=== PATIENT | male | born 1955 | race Caucasian/White ===

== ENCOUNTER 2022-07-26 12:57 | Outpatient (OUT) | payer MEDICARE, SELFPAY | END 2022-07-26 12:58 | LOC: WC 12:57 | PROVIDERS: PCP Surgery; Visit Provider Surgery | DX: L97.411 Non-pressure chronic ulcer of right heel and midfoot limited to breakdown of skin (principal); L89.312 Pressure ulcer of right buttock, stage 2 | CPT/HCPCS: 99212; G0463 ==

== ENCOUNTER 2022-08-09 11:23 | Outpatient (OUT) | payer MEDICARE, SELFPAY | END 2022-08-09 11:24 | disposition home or self-care (01) | LOC: WC 11:23 | PROVIDERS: PCP Physician Assistant; Visit Provider Physician Assistant | DX: E11.621 Type 2 diabetes mellitus with foot ulcer (principal); L97.511 Non-pressure chronic ulcer of other part of right foot limited to breakdown of skin; L89.622 Pressure ulcer of left heel, stage 2; L89.612 Pressure ulcer of right heel, stage 2; I25.10 Atherosclerotic heart disease of native coronary artery without angina pectoris; L03.90 Cellulitis, unspecified; E11.40 Type 2 diabetes mellitus with diabetic neuropathy, unspecified; N18.6 End stage renal disease; E78.5 Hyperlipidemia, unspecified; I10 Essential (primary) hypertension; I25.5 Ischemic cardiomyopathy; E66.9 Obesity, unspecified; I83.90 Asymptomatic varicose veins of unspecified lower extremity | CPT/HCPCS: 11055 ==

== ENCOUNTER 2022-08-30 11:05 | Outpatient (OUT) | payer MEDICARE, SELFPAY | END 2022-08-30 11:06 | disposition home or self-care (01) | LOC: WC 11:05 | PROVIDERS: PCP Physician Assistant; Visit Provider Physician Assistant | DX: E11.621 Type 2 diabetes mellitus with foot ulcer (principal); L97.511 Non-pressure chronic ulcer of other part of right foot limited to breakdown of skin; L03.90 Cellulitis, unspecified; E11.40 Type 2 diabetes mellitus with diabetic neuropathy, unspecified; L89.312 Pressure ulcer of right buttock, stage 2; L89.622 Pressure ulcer of left heel, stage 2; L89.612 Pressure ulcer of right heel, stage 2 | CPT/HCPCS: 11055 ==

== ENCOUNTER 2022-09-27 13:03 | Outpatient (OUT) | payer MEDICARE, SELFPAY | END 2022-09-27 13:04 | disposition home or self-care (01) | LOC: WC 13:03 | PROVIDERS: PCP Physician Assistant; Visit Provider Physician Assistant | DX: L89.622 Pressure ulcer of left heel, stage 2 (principal); L89.612 Pressure ulcer of right heel, stage 2 | CPT/HCPCS: A6213; G0463 ==

== ENCOUNTER 2022-10-18 12:55 | Outpatient (OUT) | payer MEDICARE, SELFPAY | END 2022-10-18 12:56 | disposition home or self-care (01) | LOC: WC 12:55 | PROVIDERS: PCP Physician Assistant; Visit Provider Physician Assistant | DX: E11.621 Type 2 diabetes mellitus with foot ulcer (principal); L97.511 Non-pressure chronic ulcer of other part of right foot limited to breakdown of skin; L89.622 Pressure ulcer of left heel, stage 2; L89.612 Pressure ulcer of right heel, stage 2; S90.422A Blister (nonthermal), left great toe, initial encounter | CPT/HCPCS: 11056; G0463 ==

== ENCOUNTER 2022-11-05 16:00 | Outpatient (OUT) | payer MEDICARE, SELFPAY ==
[2022-11-05 16:21] LABS: Basophils Absolute Auto 0.1 10^3/uL (0.0-0.1); Basophils Percent Auto 0.8 % (0.2-2.0); Eosinophils Absolute Auto 0.2 10^3/uL (0.0-0.7); Eosinophils Percent Auto 1.9 % (0.9-7.0); Hematocrit 42.3 % (42.0-54.0); Hemoglobin 13.7 g/dL (14.0-18.0); Immature Granulocytes Pct Auto 1.2 % (0.0-0.5); Lymphocytes Absolute Auto 1.4 10^3/uL (1.2-3.8); Lymphocytes Percent Auto 15.7 % (20.5-60.0); Mean Corpuscular HGB Conc 32.4 g/dL (29.9-35.2); Mean Corpuscular Hemoglobin 29.5 pg (25.9-34.0); Mean Corpuscular Volume 91.2 fL (80.0-94.0); Mean Platelet Volume 10.6 fL (9.5-13.5); Monocytes Percent Auto 11.9 % (1.7-12.0); Neutrophils Absolute Auto 5.9 10^3/uL (1.4-6.5); Neutrophils Percent Auto 68.5 % (43.0-75.0); Platelet Count 156 10^3/uL (150-450); Red Blood Count 4.64 10^6/uL (4.70-6.10); Red Cell Distribution Width 14.8 % (11.0-15.0); White Blood Count 8.6 10^3/uL (4.0-11.0)
[2022-11-05 16:51] LABS: Estimated Average Glucose 220 mg/dL; Glycohemoglobin A1C 9.3 % (4.5-6.2)
[2022-11-05 17:20] LABS: Alanine Aminotransferase 30 U/L (16-63); Albumin Globulin Ratio 0.9; Albumin Level 3.5 g/dL (3.4-5.0); Alkaline Phosphatase 76 U/L (46-116); Anion Gap 16.5; Aspartate Amino Transferase 26 U/L (15-37); Bilirubin Total 0.6 mg/dL (0.2-1.0); Calcium 9.4 mg/dL (8.5-10.1); Chloride 95 mmol/L (98-107); Chol HDL Ratio 1.8; Cholesterol 95 mg/dL (<=200); Estimated GFR (African America 10 (>=60); Estimated GFR (Non-African Ame 8 (>=60); Globulin 4.1 g/dL; Glucose 164 mg/dL (74-106); HDL Cholesterol 52 mg/dL (40-60); LDL Cholesterol Calculated 31.6 mg/dL; Potassium 3.5 mmol/L (3.5-5.1); Sodium 133 mmol/L (136-145); Thyroid Stimulating Hormone 1.553 uIU/mL (0.358-3.740); Total Protein 7.6 g/dL (6.4-8.2); Triglycerides 57 mg/dL (<=150); VLDL CHOLESTEROL 11.4 mg/dL
[2022-11-05 17:21] LABS: Prostate Specific Antigen Scrn 3.88 ng/mL (<=4.00)
== END 2022-11-05 16:01 | disposition home or self-care (01) ==
LOC: LAB 16:01
PROVIDERS: PCP Family Medicine; Visit Provider Family Medicine
DX: I25.5 Ischemic cardiomyopathy (principal); N18.6 End stage renal disease; E78.5 Hyperlipidemia, unspecified; E11.621 Type 2 diabetes mellitus with foot ulcer; R73.09 Other abnormal glucose; Z12.5 Encounter for screening for malignant neoplasm of prostate
CPT/HCPCS: 36415; 80053; 80061; 83036; 84436; 84443; 84481; 85025; G0103

== ENCOUNTER 2022-11-08 15:40 | Outpatient (OUT) | payer MEDICARE, SELFPAY | END 2022-11-08 15:41 | disposition home or self-care (01) | LOC: WC 15:40 | PROVIDERS: PCP Family Medicine; Visit Provider Physician Assistant | DX: L84 Corns and callosities (principal); E11.40 Type 2 diabetes mellitus with diabetic neuropathy, unspecified | CPT/HCPCS: 11056 ==

== ENCOUNTER 2022-12-11 14:17 | Outpatient (OUT) | payer MEDICARE, SELFPAY | END 2022-12-11 14:18 | disposition home or self-care (01) | LOC: WC 14:17 | PROVIDERS: PCP Family Medicine; Visit Provider Podiatrist Foot & Ankle Surgery | DX: L84 Corns and callosities (principal); E11.40 Type 2 diabetes mellitus with diabetic neuropathy, unspecified; L89.612 Pressure ulcer of right heel, stage 2; E11.621 Type 2 diabetes mellitus with foot ulcer; L97.811 Non-pressure chronic ulcer of other part of right lower leg limited to breakdown of skin | CPT/HCPCS: A6213; G0463 ==

== ENCOUNTER 2023-02-05 12:20 | Outpatient (OUT) | payer MEDICARE, SELFPAY ==
--- OUTSIDE RECORDS SUMMARY | 2023-02-01 16:59 | XMS_ITS | CCD ---
Author Name Unknown Address [address] [facility] [address] [place] [address] Organization [facility] Care Team Providers Care Director Outcomes Name Role Phone NAV ALEJO Referring Unavailable NAV ALEJO Primary Care Unavailable Laly Amaro Attending Unavailable Laly Amaro Admitting Unavailable Nav Alejo Unavailable Unavailable Unavailable Nav Alejo Primary Care Physician PROVIDER, UNKNOWN Attending Unavailable PROVIDER, UNKNOWN Admitting Unavailable MELO Clifton, DR MCDANIEL Primary Care Unavailable FRANKYANDERLAUREN Attending Unavailable HIGHLANDER, PETER D Admitting Unavailable HIGHLANDER, PETER D Admitting Unavailable HIGHLANDER, PETER Sharon Attending Unavailable HOY ., DR MCDANIEL Primary Care Unavailable LEANNE HUIZAR Attending Unavailable LEANNE HUIZAR Admitting Unavailable HOY ., DR MCDANIEL Primary Care Unavailable HIGHLANDER, PETER D Admitting Unavailable HIGHLANDER, PETER D Attending Unavailable HOY ., DR MCDANIEL Primary Care Unavailable HOY ., DR MCDANIEL Primary Care Unavailable FRANKYANDER, LAUREN Herrera Admitting Unavailable HIGHLANDER, LAUREN Herrera Attending Unavailable HOY ., DR MCDANIEL Primary Care Unavailable FRANKYANDERLAUREN Admitting Unavailable HIGHLANDERLAUREN Attending Unavailable NATHEN LUCIA Consulting Unavailable LEANNE HUIZAR Attending Unavailable HOY ., DR MCDANIEL Primary Care Unavailable LEANNE HUIZAR Admitting Unavailable LEANNE HUIZAR Consulting Unavailable HOY ., DR MCDANIEL Admitting Unavailable HOY ., DR MCDANIEL Attending Unavailable HOY ., DR MCDANIEL Consulting Unavailable HOY ., DR MCDANIEL Primary Care Unavailable HOY ., DR MCDANIEL Admitting Unavailable HOY ., DR MCDANIEL Attending Unavailable HOY ., DR MCDANIEL Consulting Unavailable HOY ., DR MCDANIEL Primary Care Unavailable LEANNE HUIZAR Attending Unavailable LEANNE HUIZAR Consulting Unavailable LEANNE HUIZAR Admitting Unavailable MELO ., DR MCDANIEL Primary Care Unavailable NAKUL ., NYLA CARPIO Consulting Unavailabl e PAY ., DR VARGAS Attending Unavailable MELO ., DR MCDANIEL Primary Care Unavailable PAY ., DR VARGAS Admitting Unavailable POLICARO, CHRISTIANNE Consulting Unavailable Shereen Connolly L Unavailable Unavailable Dorian, Mohamed F. Attending Unavailable Dorian, Mohamed F. Admitting Unavailable NONE, XXXX Referring Unavailable Dorian, Mohamed F. Attending Unavailable Dorian, Mohamed F. Admitting Unavailable NONE, XXXX Referring Unavailable Dorian, Mohamed F. Admitting Unavailable Dorian, Mohamed F. Referring Unavailable Fournier, Jatin Consulting Unavailable Pedro ARAUZ Attending Unavailable Fournier, Jatin Consulting Unavailable Fournier, Jatin Consulting Unavailable Fournier, Jatin Consulting Unavailable Fournier, Jatin Consulting Unavailable Fournier, Jatin Consulting Unavailable Fournier, Jatin Consulting Unavailable Fournier, Jatin Consulting Unavailable Fournier, Ajtin Consulting Unavailable Dorian, Mohamed F. Attending Unavailable Dorian, Mohamed F. Admitting Unavailable Dorian, Mohamed F. Referring Unavailable Dorian, Mohamed F. Admitting Unavailable Dorian, Mohamed F. Referring Unavailable Dorian, Mohamed F. Attending Unavailable Dorian, Mohamed F. Attending Unavailable Dorian, Mohamed F. Admitting Unavailable Dorian, Mohamed F. Referring Unavailable DORIAN, MOHAMMED N Attending Unavailable DORIAN, MOHAMMED N Admitting Unavailable Michael, Fuentes S Admitting Unavailable Chandrakant LEW Attending Unavailable Blank, Alfredo S Consulting Unavailable Blank, Alfredo S Consulting Unavailable Blank, Alfredo S Consulting Unavailable Blank, Alfredo S Consulting Unavailable Blank, Alfredo S Consulting Unavailable Blank, Alfredo S Consulting Unavailable Blank, Alfredo S Consulting Unavailable Blank, Alfredo S Consulting Unavailable Blank, Alfredo S Consulting Unavailable Blank, Alfredo S Consulting Unavailable Akkina, Cristino Consulting Unavailable Akkina, Cristino Consulting Unavailable Akkina, Cristino Consulting Unavailable Akkina, Cristino Consulting Unavailable Akkina, Cristino Consulting Unavailable Akkina, Cristino Consulting Unavailable Akkina, Cristino Consulting Unavailable Akkina, Cristino Consulting Unavailable Akkina, Cristino Consulting Unavailable Reji Azar Attending Unavailable Lenard, Adam Valero Attending Unavailable Dorian, Mohamed F. Admitting Unavailable Dorian, Mohamed F. Attending Unavailable NONE, XXXX Referring Unavailable Dorian, Mohamed F. Admitting Unavailable Dorian, Mohamed F. Attending Unavailable NONE, XXXX Referring Unavailable KarlaAlfredo Unavailable Dr. Nav Alejo Primary Care Unavail able Stepan, Dr. Corbin Roberts Attending Unava finesse Ying, Dr. Corbin Roberts Referring Unava finesse Alejo, Dr. Nav Fuentes Primary Care Unavail able DORIAN, MOHAMED Admitting Unavailable DORIAN, MOHAMED Attending Unavailable DORIAN, MOHAMED Admitting Unavailable DORIAN, MOHAMED Attending Unavailable ROSANNE ESPINOZA Referring Unavailable DEIDRE SANDERSON Attending Unavailable ESPINOZAROSANNE SPIVEY Attending Unavailable DORIAN, MOHAMED Admitting Unavailable DORIAN, MOHAMED Attending Unavailable Nav Alejo MD Primary Care Provider Unavailable Unavailable Unavailable Allergies Allergy Classification Reported Allergen(s) Allergy Type Date of Onset Reaction(s) Facility (4 sources) Ticagrelor; Translations: [ticagrelor] Drug Allergy 0 Headache, Nausea/vomiting [facility] Rep[facility] (14 sources) Ticagrelor; Translations: [ticagrelor] Drug Allergy 0 Unknown (qualifier value) [facility] (5 sources) Ticagrelor; Translations: [Brilinta TABS] Drug Allergy Nausea, Headache, Other [facility] DO Work Phone: (11 sources) Coban Bandage; Translations: [Coban Bandage] Drug allergy Eruption of skin (disorder) [facility] (3 sources) Angiotensin Converting Enzyme (Gomez) Inhibitors; Translations: [GOMEZ Inhibitors] Allergy to drug (finding) Hypotension [facility] DO Work Phone: (3 sources) Beta-Adrenergic Joi; Translations: [Beta Adrenergic Blockers] Allergy to drug (finding) Hypotension [facility] DO Work Phone: (3 sources) Bandages MISC; Translations: [Bandages MISC] Allergy to drug (finding) Rash [facility] DO Work Phone: (1 source) OTHER; Translations: [OTHER] Propensity to adverse reactions (disorder) 3 [facility] (1 source) Angiotensin-conv erting enzyme inhibitor agent Propensity to adverse reactions 3 Other [facility] Work Phone: (1 source) Selective beta-2 adrenoceptor stimulants Propensity to adverse reactions 3 Other [facility] Work Phone: Medications Current Medications Medication Drug Class(es) Dates Sig (Normalized) Sig (Original) acetaminophen 325 mg oral tablet (9 sources) Start: 07-19-2022 acetaminophen 325 mg Tab 650 mg = 2 tab(s), Oral, q6hr, PRN Pain, not to exceed 4000 mg/day, Refills(s) 0 Start Date: 07/19/22 Status: Ordered take 325-650 mg by m outh every six hours acetaminophen (Tylenol) 325 mg tablet Ta ke 1-2 tablets (325-650 mg) by mouth every 6 hours. 0 Active acetaminophen 325 mg / oxyCODONE hydrochloride 5 mg oral tablet (1 source) Opioid Agonist take 1 tablet by mouth every six hours as needed oxyCODONE-acetaminophen (Percocet) 5-325 mg tablet Take 1 tablet by mouth every 6 hours if needed for severe pain (7 - 10). 0 Active alteplase (1 source) Cathflo Activase 2 MG as directed Injection Active alteplase (Cathflo Activase) 1 mg/mL injection (1 source) alteplase (Cathf lo Activase) 1 mg/mL injection 2 mL (2 mg) by intra-catheter route if needed. 0 Active amLODIPine 5 mg oral tablet (1 source) Dihydropyridine Calcium Channel Joi Start : 10-06 take 5 mg by mouth once daily Amlodipine Active 5 MG PO Daily October 07, 2019 2:13pm atorvastatin 40 mg oral tablet (20 sources) HMG-CoA Reductase Inhibitor Start : 12-04 take 1 tablet by mouth once daily at bedtime atorvastatin (Lipitor) 40 mg tablet Indications: Hyperlipidemia, unspecified hyperlipidemia type TAKE 1 TABLET BY MOUTH EVERYDAY AT BEDTIME 90 tablet 3 12/04/2022 Active Start: 04-17-2018 End: 01-31-2023 take 1 tablet by mouth once daily atorvastatin 40 mg Tab 40 mg = 1 tab(s), Oral, Daily, Refills(s) 0, High cholesterol Start Date: 07/09/19 Status: Ordered calcium carbonate 750 mg rich wable tablet (4 sources) calcium carbonat e EX (Tums Extra Strength) 300 mg (750 mg) chewable tablet Chew 2 tablets (1,500 mg) 3 times a day. 0 Active Tums E-X 750 750 MG Oral Tablet Chewable TAKE DIRECTED. Quantity: 0 Refills: 0 Ordered: 11-Jan-2022 DO Active Celebrate Multivitamin (10 sources) Start: 05-12-2020 Celebrate Multivitamin See Instructions, Refill(s) 0 Start Date: 05/12/20 Status: Ordered cephalexin 500 mg oral capsule (3 sources) Cephalosporin Antibacterial Start: 07-09-2022 take 1 capsule by mouth every twelve hours Keflex 500 mg Cap 500 mg = 1 cap(s), Oral, q12hr, # 20 cap(s), Refills(s) 0, Pharmacy: [facility]/pharmacy #[id number], 178, cm, 07/09/22 17:32:00 EDT, Height/Length Dosing, 92, kg, 07/09/22 17:32:00 EDT, Weight Dosing Start Date: 07/09/22 Status: Ordered 0.42 ml darbepoetin thomas 0.06 mg/ml prefilled syringe (9 sources) Erythropoiesis-stim ulating Agent Start: 03-15-2022 Aranesp 25 mcg/0.42 mL Injection Refills(s) 0 Start Date: 03/15/22 Status: Ordered Aranesp (Albumin Free) 25 MCG/ML 1 mL Injection Active Aranesp (Albumin Free) 25 MCG/0.42ML Injection Solution Prefilled Syringe every other week for dialysis Quantity: 0 Refills: 0 Ordered: 13-Jul-2021 DO Active doxazosin 1 mg oral tablet (16 sources) alpha-Adrenergic Joi Start: 07-09-2019 take 1 tablet by mouth once daily doxazosin 1 mg oral tablet 1 mg = 1 tab(s), Oral, Daily, Refills(s) 0, Other (see comment) Start Date: 07/09/19 Status: Ordered fluticasone (1 source) Corticosteroid Start: 12-08-2018 FreeStyle Bre 14 Day [place] - (1 source) Start: 04-15-2018 Freestyle Bre 14 day sensor (1 source) Start: 01-24-2018 furosemide 20 mg oral tablet (1 source) Loop Diuretic take 1 tablet by mouth every twenty-four hours gentamicin 40 mg/ml injectable solution (1 source) Gentamicin Sulfate 40 MG/ML as directed Injection Active Glucose Control Normal (1 source) Start: 04-26-2015 500 ml heparin sodium, porcine 2 unt/ml injection (6 sources) Unfractionated Heparin, Anti-coagulant heparin sodium,porcine/N S/PF (heparin in NS) 2 units/mL parenteral solution Infuse into a venous catheter. 0 Active take 2000 [IU] intravenously onc e Heparin (Porcine) in NaCl 1000-0.9 UT/500ML-% Intravenous Solution 2000 units every dialysis loading dose Quantity: 0 Refills: 0 Ordered: 11-Jan-2022 DO Active Heparin (Porcine ) in NaCl 1000-0.9 UT/500ML-% Intravenous Solution 2000 unitts every dialysis loading dose Quantity: 0 Refills: 0 Ordered: 13-Jul-2021 DO Active Humalog KwikPen (8 sources) Start: 03-25-2020 Humalog KwikPe n See Instructions, sliding scale tidhs, Refills(s) 0 Start Date: 03/25/20 Status: Ordered 3 ml insulin glargine 100 unt/ml pen injector (2 sources) Insulin Analog Start: 04-15-2018 inject 43 [IU] by subcutaneous injection twice daily Insulin Glargine Active 43 UNITS SUBCUT Twice daily April 15, 2018 12:11pm NPH Insulin, Human / Regular Insulin, Human (16 sources) Insulin Start: 07-19-2022 insulin isopha ne-insulin regular 14 unit(s), SubCutaneous, BIDAC, Refill(s) 0 Start Date: 07/19/22 Status: Ordered Start: 02-27-2021 inject 30 [IU] by felipe bcutaneous injection in the morning, then inject 14 [IU] by subcutaneous injection in the evening NovoLIN 70/30 ReliOn (70-30) 100 UNIT/ML Subcutaneous Suspension INJECT 30 UNITS SUBCUTANEOUSLY IN THE MORNING AND 14 UNITS IN THE EVENING Quantity: 10 Refills: 0 Ordered: 20-Mar-2021 DO Start : 27-Feb-2021 Active Start: 03-25-2020 Novolin 70/30 See Instructions, Refill(s) 0, 30 units in am, 14 units bedtime, Blood glucose Start Date: 03/25/20 Status: Ordered Insulin Isophane Human (1 source) Insulin Isophane Human Active 3 ml insulin lispro 100 unt/ml pen injector (3 sources) Insulin Analog Start: 04-15-2018 Insulin Lispro Active 0 .ROUTE .COMPLEX April 15, 2018 12:11pm 1:4 CARB RATIO & 1:12 MG SCALE BEFORE MEALS - USE AT BEDTIME IF GREATER THAN 200 -EXPECT 70U PER DAY Insulin Lispro A ctive insulin lispro 100 units/mL injectable solution (2 sources) Start: 07-19-2022 insulin lispro 100 units/mL injectable solution 0-10 Units, SubCutaneous, QIDACHS, Refills(s) 0 Start Date: 07/19/22 Status: Ordered Novolin R (12 sources) Insulin Start: 06-16-2020 Novolin R Refi lls(s) 0 Start Date: 06/16/20 Status: Ordered insulin regular human (NovoLIN R FlexPen) 100 unit/mL (3 mL) insulin pen Inject under the skin. Take as directed per insulin instructions. 0 Active NovoLIN R 100 UN IT/ML Injection Solution USE DIRECTED. Quantity: 0 Refills: 0 Ordered: 11-Jan-2022 DO Active labetalol hydrochloride 100 mg oral tablet (1 source) beta-Adrenergic Joi Start: 10-07-2019 take 100 mg by mouth twice daily Labetalol Active 100 MG PO Twice daily October 07, 2019 2:13pm lidocaine 25 mg/ml / prilocaine 25 mg/ml topical cream (1 source) Antiarrhythmic, Amide Local Anesthetic lidocaine-prilocai ne (Emla) 2.5-2.5 % cream Apply topically 1 time. As directed 0 Active liothyronine sodium 0.005 mg oral tablet (1 source) l-Triiodothyronine Start: 11-07-2022 liothyronine (Cytomel) 5 mcg tablet 1 tablet (5 mcg) once daily. 0 11/07/2022 Active midodrine hydrochloride 10 mg oral tablet (14 sources) alpha-Adrenergic Agonist Start: 12-03-2022 midodrine (Proamatine) 10 mg tablet TAKE 1 TABLET BY MOUTH WITH DIALYSIS NEEDED FOR LOW BLOOD PRESSURE 0 12/03/2022 Active Start: 10-15-2022 End: 01-31-2023 take 2 tablets by mouth once daily midodrine (Proamatine) 5 mg tablet Take 2 tablets (10 mg) by mouth once daily. If HR is OK 0 10/15/2022 01/31/2023 Discontinued (Dose adjustment) Start: 01-01-2022 take 1 tablet by jus th once daily midodrine 5 mg Tab 5 mg = 1 tab(s), Oral, As Directed, On dialysis days only, Refills(s) 0 Start Date: 03/15/22 Status: Ordered multivit-minerals/folic acid (CENTRUM ADULTS ORAL) (1 source) take 1 tablet by mouth once daily multivit-minerals/folic acid (CENTRUM ADULTS ORAL) Take 1 tablet by mouth once daily. 0 Active Multivitamin/Minerals 27-1 M G (1 source) Multivitamin/Min erals 27-1 MG as directed Orally Active 1 ml paricalcitol 0.002 mg/m l injection (4 sources) Vitamin D3 Analog paricalcitoL (Zempla r) 2 mcg/mL injection Infuse 3.5 mL (7 mcg) into a venous catheter 3 (three) times a week. 0 Active take 7 ug intravenously three ti mes weekly Zemplar 2 MCG/ML Intravenous Solution 7 micrograms 3 times weekly. Quantity: 0 Refills: 0 Ordered: 11-Jan-2022 DO Active POLYETHYLENE GLYCOL 3350 (14 sources) Osmotic Laxative Start: 07-09-2019 polyethylene glycol 3350 17 gram, Oral, Daily Constipation, Refill(s) 0, Constipation Start Date: 07/09/19 Status: Ordered take 17 g by mouth once daily po lyethylene glycol (Glycolax, Miralax) packet Take 17 g by mouth once daily. As directed 0 Active Potassium gluconate (1 source) take 1 tablet by mouth once daily Vancomycin (3 sources) Glycopeptide Antibacterial Start: 07-20-19 take 1 dose intravenously once daily vancomycin PHARMACY TO DOSE, IV, As Directed, IV vanco 500mg on 07/20. Doses to be given on HD days at HD center. Rx. to dose prior to each dose given. IV vanco x 4 wks - first dose given on 07/12/22., Refills(s) 0 Start Date: 07/19/22 Status: Ordered Vancomycin HCl N ot-Taking VITAMIN B COMPLEX ORAL (1 source) take 1 tablet by mouth once daily VITAMIN B COMPLEX ORAL Take 1 tablet by mouth once daily. 0 Active Vitamin B Complex oral capsule (10 sources) Start: 07-09-2019 take 1 capsule by mouth once daily Vitamin B Complex oral capsule 1 cap(s), Oral, Daily, Refill(s) 0, Prophylaxis Start Date: 07/09/19 Status: Ordered vitamin b12 0.1 mg oral tablet (6 sources) Vitamin B12 End: 01-31-2023 take 1 tablet by mouth once daily cyanocobalamin (Vitamin B-12) 100 mcg tablet Take 1 tablet (100 mcg) by mouth once daily. 0 01/31/2023 Discontinued (Therapy completed) Vitamin B12 1000 MCG (1 source) Start: 06-05-2017 take 1000 ug by mouth once daily Vitamin D3 1000 UNIT (1 source) Start: 06-05-2017 take 2 capsules by mouth once daily Completed/Discontinued Medications Medication Drug Class(es) Dates Sig (Normalized) Sig (Original) Albuterol (1 source) beta2-Adrenergic Agonist Start: 04-15-2018 End: 10-07-2019 take 90 ug by inhalation every four hours Albuterol Sulfate Discontinued 90 MCG INHALATION Every 4 hours April 15, 2018 12:11pm October 07, 2019 2:15pm apixaban 5 mg oral tablet (2 sources) Factor Xa Inhibitor Start: 04-15-2018 End: 10-07-2019 take 1 tablet by mouth twice daily Apixaban (Eliquis) 5 mg tablet Discontinued 5 MG PO Twice daily May 14, 2018 2:15pm October 07, 2019 2:15pm aspirin 81 mg delayed release oral tablet (17 sources) Platelet Aggregation Inhibitor, Nonsteroidal Anti-inflammatory Drug Start: 08-15-2022 take 1 tablet by mouth once daily Aspirin 81 MG Oral Tablet Delayed Release TAKE 1 TABLET DAILY. Quantity: 90 Refills: 3 Ordered: 16-Aug-2022 Corbin Ying DO Start : 15-Aug-2022 Active Start: 04-15-2018 aspirin 81 mg Chew Tab 81 mg = 1 tab(s), Chewed, Daily, Refills(s) 0, Blood Thinner Start Date: 07/23/19 Status: Ordered carvedilol 6.25 mg oral tablet (2 sources) alpha-Adrenergic Joi, beta-Adrenergic Joi Start: 04-15-2018 End: 10-07-2019 take 6.25 mg by mouth twice daily Carvedilol Discontinued 6.25 MG PO Twice daily April 15, 2018 12:06pm October 07, 2019 2:16pm take 1 tablet by mouth every twe nty-four hours cobamamide 0.1 mg / vitamin b 12 5 mg sublingual tablet (1 source) Vitamin B12 Start: 04-15-2018 End: 10-07-2019 take 12-5000 tablets under the tongue once daily Cyanocobalamin-Cobamamide (B-12 Plus) 5,000-100 mcg Tablet, Sublingual Discontinued 1500 MCG SUBLINGUAL Daily April 15, 2018 12:11pm October 07, 2019 2:16pm EMLA CREA (3 sources) EMLA CREA apply 1 hour before dialysis- 3 days weekly Quantity: 0 Refills: 0 Ordered: 11-Jan-2022 DO Active ferrous sulfate 325 mg oral tablet (2 sources) Start: 04-15-2018 End: 10-07-2019 take 1 tablet by mouth once daily Ferrous Sulfate (Iron) 325 mg (65 mg iron) Tablet Discontinued 325 MG PO Daily April 15, 2018 12:11pm October 07, 2019 2:16pm heparin flush 100 units/mL Soln 5 mL (2 sources) Start: 07-19-2022 take 5 mL intravenously every twenty-four hours heparin flush 100 units/mL Soln 5 mL 100 unit(s), IV, q24hr, Follow [facility] PICC line flushing policy, # 3 EA, Refills(s) 0 Start Date: 07/19/22 Status: Ordered hydrALAZINE hydrochloride 50 mg oral tablet (10 sources) Arteriolar Vasodilator Start: 04-05-2021 take 1 tablet by mouth three times daily hydrALAZINE HCl - 50 MG Oral Tablet TAKE 1 TABLET BY MOUTH THREE TIMES A DAY Quantity: 90 Refills: 0 Ordered: 01-Jun-2021 DO Start : 05-Apr-2021 Active Start: 10-07-2019 take 50 mg by mouth three times daily Hydralazine Active 50 MG PO Three times daily October 07, 2019 2:13pm Start: 07-09-2019 take 1 tablet by jus th every eight hours hydrALAZINE 50 mg Tab 50 mg = 1 tab(s), Oral, q8hr, Refills(s) 0, High blood pressure Start Date: 07/09/19 Status: Ordered levothyroxine sodium 0.1 mg oral tablet (19 sources) l-Thyroxine Start: 10-10-2020 take 1 tablet by mouth once daily Levothyroxine Sodium 100 MCG Oral Tablet TAKE 1 TABLET BY MOUTH EVERY DAY Quantity: 90 Refills: 0 Ordered: 31-May-2021 DO Start : 10-Oct-2020 Active Start: 07-09-2019 take 1 tablet by jus th once daily Synthroid 100 mcg Tab 100 microgram = 1 tab(s), Oral, Daily, Refills(s) 0, Thyroid Start Date: 07/09/19 Status: Ordered Start: 04-15-2018 take 100 ug by mouth once constantine y Levothyroxine Active 100 MCG PO Daily April 15, 2018 12:11pm take 1 tablet by jus th once daily in the morning lisinopril 5 mg oral tablet (3 sources) Angiotensin Converting Enzyme Inhibitor Start: 04-17-2018 End: 05-14-2018 take 10 mg by mouth once daily Lisinopril Discontinued 10 MG PO Daily April 17, 2018 3:37pm May 14, 2018 2:16pm Start: 04-15-2018 End: 04-17-2018 take 5 mg by mouth once daily Lisinopril Discontinued 5 MG PO Daily April 15, 2018 12:11pm April 17, 2018 3:38pm prasugrel 10 mg oral tablet (2 sources) [id number] Platelet Inhibitor Start: 05-14-2018 End: 10-07-2019 take 1 tablet by mouth once daily Prasugrel (Effient) 10 mg Tablet Discontinued 10 MG PO Daily May 14, 2018 2:16pm October 07, 2019 2:16pm silver sulfADIAZINE 10 mg/ml topical cream (1 source) Sulfonamide Antibacterial Start: 03-06-2021 Silver sulfADIAZINE 1 % External Cream APPLY SPARINGLY TO AFFECTED AREA TWICE A DAY Quantity: 50 Refills: 0 Ordered: 06-Mar-2021 DO Start : 06-Mar-2021 Complete 5 ml sodium ferric gluconate complex 12.5 mg/ml injection (2 sources) Ferrlecit 12.5 MG/ML Intravenous Solution USE DIRECTED. Quantity: 0 Refills: 0 Ordered: 13-Jul-2021 DO Active sodium polystyrene sulfonate 250 mg/ml oral suspension (1 source) Start: 01-04-2021 SPS 15 GM/60ML Oral Suspension TAKE 120 ML BY MOUTH DIRECTED BY THE DIALYSIS CLINIC. EMERGENCY USE ONLY. Quantity: 120 Refills: 0 Ordered: 12-Mar-2021 DO Start : 04-Jan-2021 Complete ticagrelor 90 mg oral tablet (1 source) Start: 04-17-2018 End: 05-14-2018 take 1 tablet by mouth twice daily Ticagrelor (Brilinta) 90 mg Tablet Discontinued 90 MG PO Twice daily 180 90 April 17, 2018 3:34pm May 14, 2018 2:15pm Problems Active Problems Problem Classification Problem Date Documented Da te Episodic/Chronic Acute myocardial infarction (11 sources) Myocardial infarction in recovery phase; Translations: [Acute non-ST segment elevation myocardial infarction] Onset: 9 07-09-2019 Chronic Administrative/social admission (2 sources) Reduced mobility; Translations: [Patient encounter status] Episodic Asthma (1 source) Unspecified asthma, uncomplicated; Translations: [UNSPECIFIED ASTHMA UNCOMPLICATED] Onset: 2 Chronic Bacterial infection; unspecified site (2 sources) Bacteremia; Translations: [Methicillin resistant Staphylococcus aureus infection as the cause of diseases classified elsewhere] Episodic Cardiac dysrhythmias (6 sources) Ventricular premature beats; Translations: [Other premature beats] Onset: 3 12-03-2022 Chronic Cataract (10 sources) Pseudophakia Onset: 9 07-09-2019 Chronic Chronic kidney disease (20 sources) Chronic kidney disease; Translations: [End stage renal failure on dialysis] Onset: 2 Chronic Chronic ulcer of skin (4 sources) Pressure ulcer stage 2; Translations: [Non-pressure chronic ulcer of right heel and midfoot limited to breakdown of skin] Onset: 3 Chronic Complication of device; implant or graft (2 sources) Infection and inflammatory reaction due to other cardiac and vascular devices, implants and grafts, initial encounter; Translations: [Infection and inflammatory reaction due to other cardiac and vascular devices, implants and grafts, subsequent encounter] Onset: 3 Episodic Congestive heart failure; nonhypertensive (20 sources) Acute systolic heart failure; Translations: [Left ventricular cardiac dysfunction] Onset: 9 07-09-2019 Chronic Coronary atherosclerosis and other heart disease (20 sources) Coronary arteriosclerosis; Translations: [Coronary atherosclerosis of unspecified type of vessel, [place] or graft] Onset: 9 07-09-2019 Chronic Coronary atherosclerosis and other heart disease (4 sources) Patient post percutaneous transluminal coronary angioplasty; Translations: [Percutaneous transluminal coronary angioplasty status] Onset: 3 01-31-2023 Episodic Deficiency and other anemia (16 sources) Anemia; Translations: [Anemia, unspecified] Onset: 9 07-30-2019 Episodic Diabetes mellitus with complications (20 sources) Neuropathy due to diabetes mellitus; 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] Onset: 9 07-09-2019 Chronic Diabetes mellitus without complication (20 sources) Diabetes mellitus; Translations: [Diabetes mellitus without mention of complication, type II or unspecified type, not stated as uncontrolled] Onset: 9 07-09-2019 Chronic Disorders of lipid metabolism (20 sources) Hyperlipidemia; Translations: [Other and unspecified hyperlipidemia] Onset: 9 07-30-2019 Chronic Essential hypertension (20 sources) Essential hypertension; Translations: [Unspecified essential hypertension] Onset: 9 07-09-2019 Chronic Genitourinary symptoms and ill-defined conditions (11 sources) Dysuria; Translations: [Albuminuria ] Onset: 9 07-09-2019 Episodic Hypertension with complications and secondary hypertension (2 sources) Hypertensive chronic kidney disease with stage 5 chronic kidney disease or end stage renal disease; Translations: [Hypertensive renal disease] Onset: 2 Chronic Nutritional deficiencies (1 source) Vitamin D deficiency; Translations: [Vitamin D deficiency, unspecified] Chronic Other aftercare (1 source) Surgical follow-up; Translations: [Encounter for other specified surgical aftercare] Onset: 3 Episodic Other aftercare (1 source) Long-term current use of insulin; Translations: [USP (current) use of insulin] Episodic Other and ill-defined heart disease (10 sources) Left ventricular hypertrophy Onset: 9 07-09-2019 Chronic Other circulatory disease (2 sources) Arteriovenous fistula, acquired; Translations: [Arteriovenous fistula, acquired] Onset: 3 Chronic Other nervous system disorders (2 sources) Other acute postprocedural pain; Translations: [Other acute postprocedural pain] Onset: 3 Episodic Other nutritional; endocrine; and metabolic disorders (8 sources) Obesity; Translations: [Obesity, unspecified] Chronic Other nutritional; endocrine; and metabolic disorders (1 source) Obesity, unspecified; Translations: [OBESITY UNSPECIFIED] Onset: 3 Chronic Other nutritional; endocrine; and metabolic disorders (1 source) Body mass index 40+ - severely obese; Translations: [Body mass index (BMI) 40.0-44.9, adult] Chronic Other nutritional; endocrine; and metabolic disorders (1 source) Severe obesity; Translations: [Morbid (severe) obesity due to excess calories] Chronic Other nutritional; endocrine; and metabolic disorders (3 sources) Obese class II; Translations: [Body mass index (BMI) 39.0-39.9, adult] Chronic Other screening for suspected conditions (not mental disorders or infectious disease) (13 sources) Electrocardiogram abnormal; Translations: [Culture positive for methicillin resistant Staphylococcus aureus] Onset: 9 07-09-2019 Episodic Comment on above: MRSA in lt arm wound 07/12/2022 Other skin disorders (5 sources) Corns and callosities; Translations: [CORNS AND CALLOSITIES] Onset: 3 Episodic Other skin disorders (4 sources) Impaired skin integrity 07-12-2022 Episodic Comment on above: Problem added on doc umentation of skin impairments. Other skin disorders (1 source) Gustatory sweating; Translations: [Primary focal hyperhidrosis, unspecified] Episodic Peripheral and visceral atherosclerosis (1 source) Peripheral vascular disease, unspecified; Translations: [PERIPHERAL VASCULAR DISEASE UNS] Onset: 3 Chronic Phlebitis; thrombophlebitis and thromboembolism (20 sources) H/O: Deep vein thrombosis; Translations: [Personal history of venous thrombosis and embolism] Onset: 9 07-09-2019 Episodic Residual codes; unclassified (10 sources) Sleep apnea 08-06-2019 Chronic Residual codes; unclassified (4 sources) Intolerance to drug; Translations: [Other drug allergy] Onset: 3 12-03-2022 Episodic Residual codes; unclassified (4 sources) Other specified health status; Translations: [GOMEZ inhibitor intolerance] Onset: 3 12-03-2022 Episodic Residual codes; unclassified (1 source) Noncompliance with treatment; Translations: [Patient's noncompliance with other medical treatment and regimen] Episodic Residual codes; unclassified (1 source) Noncompliance with medication regimen; Translations: [Noncompliance w/medication treatment due to intermit use of medication] Episodic Residual codes; unclassified (2 sources) Never smoked any substance; Translations: [Other specified health status] Onset: 3 01-31-2023 Episodic Skin and subcutaneous tissue infections (5 sources) Cellulitis, unspecified; Translations: [CELLULITIS UNSPECIFIED] Onset: 2 Episodic Thyroid disorders (5 sources) Hypothyroidism 07-02-2022 Chronic Unclassified (1 source) Finding of activity of daily living; Translations: [Requires assistance with activities of daily living (ADL)] Unclassified (2 sources) CONTACT W/AND (SUSP) EXPOS COVID-19; Translations: [CONTACT W/AND (SUSP) EXPOS COVID-19] Onset: 3 Varicose veins of lower extremity (17 sources) Venous varices; Translations: [Asymptomatic varicose veins] Onset: 9 07-09-2019 Episodic Comment on above: Varicose veins; Viral infection (1 source) COVID-19; Translations: [COVID-19] Onset: 3 Past or Other Problems Problem Classification Problem Date Documented Date Episodic/Chronic Cardiac dysrhythmias (13 sources) Palpitations; Translations: [Bradycardia, unspecified] Onset: 05-06-2018 07-30-2019 Episodic Heart valve disorders (1 source) Other abnormalities of heart beat; Translations: [OTHER ABNORMALITIES OF HEART BEAT] Onset: 08-29-2021 Episodic Malaise and fatigue (10 sources) Fatigue Onset: 05-06-2018 07-09-2019 Episodic Other aftercare (1 source) USP (current) use of insulin; Translations: [KILN [employer]W TENDER CURRENT USE OF INSULIN] Onset: 08-29-2021 Episodic Other aftercare (1 source) Other mcc (current) drug therapy; Translations: [OTH SNF CURRENT DRUG THERAPY] Onset: 08-29-2021 Episodic Other aftercare (1 source) USP (current) use of aspirin; Translations: [SNF CURRENT USE OF ASPIRIN] Onset: 08-29-2021 Episodic Other circulatory disease (3 sources) Other specified symptoms and signs involving the circulatory and respiratory systems; Translations: [OTH SPEC SX SIGNS INVLV CIRC RS] Onset: 03-06-2022 Episodic Other connective tissue disease (4 sources) Pain in right foot; Translations: [PAIN IN RIGHT FOOT] Onset: 02-15-2022 Episodic Other connective tissue disease (1 source) Pain in left foot; Translations: [PAIN IN LEFT FOOT] Onset: 02-27-2022 Episodic Other diseases of veins and lymphatics (10 sources) Venous insufficiency of leg Onset: 05-06-2018 07-09-2019 Episodic Other lower respiratory disease (10 sources) Dyspnea Onset: 05-06-2018 07-09-2019 Episodic Other lower respiratory disease (1 source) Personal history of pneumonia (recurrent); Translations: [PERSONAL HX OF PNEUMONIA RECURRENT] Onset: 08-29-2021 Episodic Residual codes; unclassified (10 sources) Edema of lower extremity Onset: 05-06-2018 07-09-2019 Episodic Residual codes; unclassified (1 source) Acquired absence of other specified parts of digestive tract; Translations: [ACQ ABSENCE OTH PART DIGESTV TRACT] Onset: 08-29-2021 Episodic Unclassified (5 sources) Never smoked tobacco; Translations: [Never a smoker] Unclassified (1 source) CONTACT W/AND (SUSP) EXPOS COVID-19; Translations: [CONTACT W/AND (SUSP) EXPOS COVID-19] Onset: 05-09-2022 Unclassified (1 source) Onset: 01-31-2023 01-31-2023 Results Test Name Value Interpretation Reference Range Facility 29on 01-21-2023 29 Addendum created 01/21/23 1344 by Leanne Chavez MD Clinical Note Signed Normal [facility] APTTon 01-18-2023 ACTIVATED PARTIAL THROMBOPLASTIN TIME IN PPP BY COAGULATION ASSAY 29.4 Seconds Normal 25.0-35.0 [facility] Comment on above: Result Comment: Clin ical significance of the APTT is questionable in the presence of heparin. Performed By: #### L [id number] #### [facility] ([facility]) [address] [place] [address] Anesthesiaon 01-18-2023 Anesthesia [id number] Corbin Murphy 1955 M Date Provider Department Center 01/18/2023 Lulu-JOSÉ LUNDBERG [facility] OR DE Medical C No family history on file Normal [facility] BASIC METABOLIC PANELon 12-0 Anion gap [Moles/Vol] 16 mmol/L Normal 7-20 [facility] Comment on above: Performed By: #### L [id number] #### [facility] ([facility]) [address] [place] [address] Calcium [Mass/Vol] 9.6 mg/dL Normal 8.6-10.3 [facility] Comment on above: Performed By: #### L [id number] #### [facility] ([facility]) [address] [place] [address] Chloride [Moles/Vol] 100 mmol/L Normal 98-107 [facility] Comment on above: Performed By: #### L [id number] #### [facility] ([facility]) [address] [place] [address] CO2 [Moles/Vol] 23 mmol/L Normal 21-31 [facility] Comment on above: Performed By: #### L [id number] #### [facility] ([facility]) [address] [place] [address] Creatinine [Mass/Vol] 7.03 mg/dL High 0.70-1.30 [facility] Comment on above: Performed By: #### L [id number] #### [facility] ([facility]) [address] [place] [address] GLOMERULAR FILTRATION RATE ML/MIN/1.73 SQ M.PREDICTED 7.9 mL/min/1.73m*2 Low >60.0 [facility] Comment on above: Result Comment: The [facility]???s estimated glomerular filtration rate (eGFR) will no longer include consideration of race in its calculation. The National Kid[employer] Foundation???s eGFR Task Force developed new recommendations for the estimation of the glomerular filtration rate in the [place] They recommend immediate implementation of the new equation refit without the race variable in all laboratories because the calculation does not include race. In addition to not including race in the calculation and reporting, it included diversity in its development, and has acceptable performance characteristics and potential consequences that do not disproportionately affect any one group of individuals. Performed By: #### L [id number] #### [facility] ([facility]) [address] [place] [address] Glucose [Mass/Vol] 96 mg/dL Normal 70-100 [facility] Comment on above: Performed By: #### L [id number] #### [facility] ([facility]) [address] [place] [address] Potassium [Moles/Vol] 3.4 mmol/L Low 3.5-5.1 [facility] Comment on above: Performed By: #### L [id number] #### [facility] ([facility]) [address] [facility] [place] [address] Sodium [Moles/Vol] 136 mmol/L Normal 136-145 [facility] Comment on above: Performed By: #### L [id number] #### [facility] ([facility]) [address] [place] [address] Urea nitrogen [Mass/Vol] 19 mg/dL Normal 7-25 [facility] Comment on above: Performed By: #### L [id number] #### [facility] ([facility]) [address] [place] [address] UREA NITROGEN/CREATININE (MASS RATIO) IN SER/PLAS 2.7 Normal [facility] Comment on above: Performed By: #### L [id number] #### [facility] ([facility]) [address] [place] [address] CBCon 01-18-2023 Erythrocyte distribution width (RBC) [Ratio] 14.2 % Normal 11.5-15.0 [facility] Comment on above: Performed By: #### L [id number] ####[facility] ([facility])[address] [place] [address] ERYTHROCYTE MEAN CORPUSCULAR HEMOGLOBIN CONCENTRATION (G/DL) BY AUTOMATED 33.2 g/dL Normal 32.0-35.0 [facility] Comment on above: Performed By: #### L [id number] ####[facility] ([facility])[address] [place] [address] Hematocrit (Bld) [Volume fraction] 35.8 % Low 39.0-55.0 [facility] Comment on above: Performed By: #### L [id number] ####[facility] [place] [address] Hemoglobin (Bld) [Mass/Vol] 11.9 g/dL Low 13.0-17.0 [facility] Comment on above: Performed By: #### L [id number] ####[facility] [place] [address] MCH (RBC) [Entitic mass] 31.2 pg Normal 27.0-33.0 [facility] Comment on above: Performed By: #### L [id number] ####[facility] [place] [address] MCV (RBC) [Entitic vol] 93.7 fL Normal 82.0-98.0 [facility] Comment on above: Performed By: #### L [id number] ####[facility] ([facility])[address] [place] [address] PLATELETS (10*3/UL) IN BLOOD AUTOMATED COUNT 189 10*3/uL Normal 150-400 [facility] Comment on above: Performed By: #### L [id number] ####[facility] ([facility])[address] [place] [address] RBC (Bld) [#/Vol] 3.82 10*6/uL Low 4.20-5.70 [facility] Comment on above: Performed By: #### L [id number] ####[facility] ([facility])[address] [place] [address] WBC (Bld) [#/Vol] 6.40 10*3/uL Normal 4.00-10.60 [facility] Comment on above: Performed By: #### L [id number] ####[facility] ([facility])[address] [place] [address] Labon 01-18-2023 Lab [id number] Corbin Murphy 1955 M Date Provider Department [place] 01/18/2023 2245-[facility] OPD LAB RESOURCE [facility] OPD [facility] C No family history on file Normal [facility] MRSA/MSSA DNA NASALon 2022 MRSA DNA Negative Normal Negative [facility] Comment on above: Order Comment: Testi ng methodology is an automated qualitative in vitro diagnostic test for the directdetection and differentiation of Staphylococcus aureus (SA) DNA and methicillin-resistant Staphylococcus aureus (MRSA) DNA from nasal swabs in patients at risk for nasal colonization. The test utilizes real-time polymerase chain reaction (PCR) for the amplification of MRSA/SA DNA and fluorogenic target-specific hybridization probes for the detection of the amplified DNA. A negative result does not preclude nasal colonization. Performed By: #### L [id number] ####[facility] ([facility])[address] [place] [address] MSSA DNA Negative Normal Negative [facility] Comment on above: Order Comment: Testi ng methodology is an automated qualitative in vitro diagnostic test for the directdetection and differentiation of Staphylococcus aureus (SA) DNA and methicillin-resistant Staphylococcus aureus (MRSA) DNA from nasal swabs in patients at risk for nasal colonization. The test utilizes real-time polymerase chain reaction (PCR) for the amplification of MRSA/SA DNA and fluorogenic target-specific hybridization probes for the detection of the amplified DNA. A negative result does not preclude nasal colonization. Performed By: #### L [id number] ####[facility] ([facility])[address] [place] [address] NURSNOTEon 01-18-2023 NURSNOTE Prescription filled and sent home with patient. Cont with + thrill and bruit. Stable for DC home. [facility] NURSNOTE DC instructions reviewed with patient and mother, copy given. [facility] OPNOTEon 01-18-2023 OPNOTE -- Attestation signed by Evelyn Alarcon MD at 01/18/2023 2:03 PM I was present for the entire procedure. DATE OF PROCEDURE: 01/18/23 PATIENT NAME: Corbin Murphy SURGEON: * Evelyn Alarcon - Primary ASSISTANTS: Ana Snyder MD STAFF: Head Stock Operator: Clifford Cheek RN Scrub Person: VELVET Schumacher Head Stock Operator: NINOSKA CANO Scrub: Ron Gama CST PRE-OP DIAGNOSIS: ESRD POST-OP DIAGNOSIS: same PROCEDURE: Procedure(s): Right Radial Cephalic Fistula Creation - CPT Codes 46905,64670,08997,3683 0 (Right) ANESTHESIA: General EBL: 5 mL FLUIDS: 921 ml crystalloid COMPLICATIONS: None. CONDITION: fair ADDITIONS (Drains, Specimens, Implants): Drains: * None in log * Specimens: No specimens collected Implants: Nothing was implanted during the procedure HISTORY: The patient is a 67 year old male with history of ESRD requiring hemodialysis w/ HD. Currently using HD via right radiocephalic AVF. Preoperative fistulogram of previous fistula showed evidence of a significantly stenosed vein proximal to the anastomosis. Management options were discussed and patient elected to pursue AV fistula creation just proximal to area of concern. CONSENT: Planned procedure was explained in detail including discussion of all associated risks/benefits. All questions/concerns were addressed and informed consent was obtained, witnessed by nurse, and placed on the pt's chart at time of initial consultation. On date of actual procedure consent form was reviewed with patient. Any/all questions/concerns were addressed and the patient elected to proceed with AVF creation as scheduled. PROCEDURE: Patient was brought back to the operative suite and placed in the supine position with right arm outstretched to near 90 degrees. A time out was completed confirming identification of proper patient, position, and procedure to be preformed. GETA anesthesia was induced and the patient was prepped and draped in normal sterile fashion. Preoperative antibiotics of 2g Ancef were administered. Transverse skin incision created via scalpel just distal to the the antecubital fossa and proximal to the area of stenosis as per determined with intraoperative ultrasound. Incision deepened via electrocautery. The cephalic vein was identified and circumferentially dissected using metzenbaum scissors. Dissection was continued as distally as possible through incision. We encountered the area of stenosis and ligated the vein just proximal to this region using a 2-0 Silk. Two medium clips were placed and the cephalic vein was transected and spatulated. Attention was then directed to the brachial artery. The brachial artery was localized via palpation and was skeletonized circumferentially. Distal and proximal control obtained via vessel loops and profunda clamp. The patient was given systemic heparin that was allowed to circulate. Cephalic vein was then flushed with heparinized saline. The brachial artery was occluded distally and proximally via vessel loops and profunda clamp. Arteriotomy created via #11 scalpel and extended using wright scissors for total of approx 5mm arteriotomy. The cephalic vein was then brought into field of view and approximated to arteriotomy in end-to-side fashion. Anastomosis created using 6-0 prolene running suture. Prior to completion of suture line the cephalic vein was allowed to back bleed. The suture line was completed and occluding clamps were taken off. Suture line inspected and found to be hemostatic. There was a strong thrill noted in the cephalic vein. Radial pulse was easily palpable. There was no evidence of kinking of the cephalic vein proximal to anastomosis. Hemostasis was ensured. Wound closed in multi-layer fashion with 3-0 vicryl inverted inturrupted in the deep dermal layer and 4-0 Monocryl in a running subcuticular fashion followed by skin glue and steri strips. Thrill noted to be palpable after wound closure. All sponge and instrument counts were correct at the end of the procedure. The patient tolerated the procedure well, was awakened from anesthesia, and was transported to PACU in stable condition. Dr. Alarcon was present for the entire procedure. [facility] Orders Onlyon 01-18-2023 Orders Only [id number] Corbin Murphy 1955 [facility] Provider Department [place] 01/18/2023 ALAN [place] [facility] No family history on file Normal [facility] POCT GLUCOSE METER UNSOLICIT ED RESULTSon 01-18-2023 Glucose [Mass/Vol] 116 mg/dL High 70-105 [facility] Comment on above: Order Comment: Waive d Testing in the ED is performed under the ED CLIA certificate #[id number]. Result Comment: rtat e Performed By: #### L [id number] #### [facility] ([facility]) [address] [place] [address] POCT PERFUSION PANEL UNSOLIC ITED RESULTSon 01-18-2023 CO2 [Moles/Vol] 28.0 mmol/L Normal 21.0-29.0 [facility] Comment on above: Performed By: #### L [id number] #### [facility] ([facility]) [address] [place] [address] Glucose [Mass/Vol] 116 mg/dL High 70-105 [facility] Comment on above: Performed By: #### L [id number] #### [facility] ([facility]) [address] [place] [address] HCO3 (Bld) [Moles/Vol] 26.8 mmol/L Normal 23.0-28.0 [facility] Comment on above: Performed By: #### L [id number] #### [facility] ([facility]) [address] [place] [address] Hematocrit (Bld) [Volume fraction] 36 % Low 38-51 [facility] Comment on above: Performed By: #### L [id number] #### [facility] ([facility]) [address] [place] [address] Hemoglobin (Bld) [Mass/Vol] 12.2 g/dL Normal 12.0-17.0 [facility] Comment on above: Performed By: #### L [id number] #### [facility] ([facility]) [address] [place] [address] POCT BASE EXCESS 2.0 mmol/L Normal -2.0-3.0 [facility] Comment on above: Performed By: #### L [id number] #### [facility] ([facility]) [address] [place] [address] POCT IONIZED CALCIUM 1.24 mmol/L Normal 1.12-1.32 [facility] Comment on above: Performed By: #### L [id number] #### [facility] ([facility]) [address] [place] [address] POCT PCO2 43.4 mmHg Normal 41.0-51.0 [facility] Comment on above: Performed By: #### L [id number] #### [facility] ([facility]) [address] [place] [address] POCT PH 7.40 Normal 7.31-7.41 [facility] Comment on above: Performed By: #### L [id number] #### [facility] ([facility]) [address] [place] [address] POCT PO2 43 mmHg Low 80-105 [facility] Comment on above: Performed By: #### L [id number] #### [facility] ([facility]) [address] [place] [address] POCT SO2 78 % Low 95-98 [facility] Comment on above: Performed By: #### L [id number] #### [facility] ([facility]) [address] [place] [address] Potassium [Moles/Vol] 3.5 mmol/L Normal 3.5-4.9 [facility] Comment on above: Performed By: #### L [id number] #### [facility] ([facility]) [address] [place] [address] Sodium [Moles/Vol] 135 mmol/L Low 138.0-146.0 [facility] Comment on above: Performed By: #### L [id number] #### [facility] ([facility]) [address] [place] [address] PROTIME-INRon 01-18-2023 INR IN PPP BY COAGULATION ASSAY 1.00 Normal 0.90-1.10 [facility] Comment on above: Result Comment: ACCC P RECOMMENDED INR FOR WARFARIN THERAPY CONDITION INR PROPHYLAXIS OF VENOUS THROMBOSIS 2-3 (HIGH-RISK SURGERY) TREATMENT OF VENOUS THROMBOSIS 2-3 TREATMENT OF PULMONARY EMBOLISM 2-3 PREVENTION OF SYSTEMIC EMBOLISM: 2-3 ACUTE MYOCARDIAL INFARCTION TISSUE HEART VALVES VALVULAR HEART DISEASE ATRIAL FIBRILLATION RECURRENT SYSTEMIC EMBOLISM MECHANICAL HEART VALVE 2.5-3.5 FROM: ORAL ANTICOAGULANTS. MECHANISM OF ACTION, CLINICAL EFFECTIVENESS, AND OPTIMAL THERAPEUTIC RANGE. CHEST 1995;108:231S-246S. Performed By: #### L [id number] #### [facility] ([facility]) [address] [place] [address] PROTHROMBIN TIME (PT) IN PPP BY COAGULATION ASSAY 13.2 Seconds Normal 12.3-14.8 [facility] Comment on above: Performed By: #### L [id number] #### [facility] ([facility]) [address] [place] [address] Orders Onlyon 01-16-2023 Orders Only [id number] Corbin Murphy 1955 M Date Provider Department Center 01/16/2023 [facility] [place] [facility] No family history on file Normal [facility] ANESon 01-15-2023 ANES Physical Exam Airway Mallampati: III TM distance: >3 FB Neck ROM: full Cardiovascular Rhythm: regular Rate: normal Dental Pulmonary Plan ASA 3 Moderate Normal [facility] HPon 01-15-2023 HP History Of Present Illness Corbin Murphy is a 67 y.o. male with history of ESRD and right radiocephalic AVF. Patient presents today for evaluation of his fistula with a fistulogram. Past Medical History He has a past medical history of Anemia, Chronic kidney disease, Coronary artery disease, Diabetes mellitus (CMS/HCC), Heart disease, Hyperlipidemia, Hypertension, Hypothyroidism, Myocardial infarction (CMS/HCC), and Peripheral vascular disease (CMS/HCC). Surgical History He has a past surgical history that includes AV fistula placement (Left); Cholecystectomy; Hernia repair; Cardiac catheterization; and Tracheostomy tube placement (N/A). Social History He reports that he has never smoked. He has never been exposed to tobacco smoke. He has never used smokeless tobacco. He reports that he does not currently use alcohol. He reports that he does not use drugs. Family History No family history on file. Allergies Brilinta [ticagrelor] and Other Medications Medications Prior to Admission Medication Sig Dispense Refill Last Dose aspirin 81 mg EC tablet Take 81 mg by mouth in the morning. 01/15/2023 atorvastatin (Lipitor) 40 mg tablet Take 40 mg by mouth in the morning. 01/15/2023 b complex 0.4 mg tablet Take 1 tablet by mouth in the morning. 01/15/2023 calcium carbonate EX (Tums Extra Strength) 300 mg (750 mg) chewable tablet Chew 300 mg if needed in the morning, at noon, and at bedtime for indigestion or heartburn. 01/14/2023 insulin lispro (HumaLOG) 100 unit/mL injection Inject 0-10 Units under the skin before breakfast, before lunch, before evening meal, and at bedtime. 01/14/2023 insulin NPH and regular human (NovoLIN) 100 unit/mL (70-30) injection vial Inject 60 Units under the skin at bedtime. 01/14/2023 levothyroxine (Synthroid, Levoxyl) 100 mcg tablet Take 100 mcg by mouth before breakfast. 01/15/2023 liothyronine (Cytomel) 5 mcg tablet TAKE 1 TABLET BY MOUTH EVERY DAY FOR 90 DAYS 01/15/2023 midodrine (Proamatine) 5 mg tablet Take 10 mg by mouth if needed. 3 days a week Past Week multivitamin tablet Take 1 tablet by mouth in the morning. 01/15/2023 oxyCODONE-acetaminophe n (Percocet) 5-325 mg tablet Take 1 tablet by mouth every 6 (six) hours if needed for moderate pain (4-7 pain score). More than a month Review of Systems Last Recorded Vitals Visit Vitals Smoking Status Never Physical Exam Constitutional: Appearance: Normal appearance. HENT: Head: Normocephalic. Eyes: General: No scleral icterus. Extraocular Movements: Extraocular movements intact. Cardiovascular: Rate and Rhythm: Normal rate. Pulmonary: Effort: Pulmonary effort is normal. No respiratory distress. Abdominal: General: There is no distension. Palpations: Abdomen is soft. Tenderness: There is no abdominal tenderness. Musculoskeletal: Cervical back: Normal range of motion. Skin: Capillary Refill: Capillary refill takes less than 2 seconds. Neurological: Mental Status: He is alert. Relevant Lab Results Lab Results Component Value Date CO2 25 06/12/2019 BUN 31 (H) 06/12/2019 CALCIUM 8.8 06/12/2019 EGFR 11 (A) 06/12/2019 EGFR 9 (A) 06/12/2019 Relevant Imaging Results Vascular US upper extremity hemodialysis access duplex right Narrative: Procedure: The arterial venous access was evaluated by ultrasound, Doppler flow, color Doppler and velocity measurement. Evaluation included the in-flow artery and the out-flow veins. Procedure: The arterial venous access was evaluated by ultrasound, Doppler flow, color Doppler and velocity measurement. Evaluation included the in-flow artery and the out-flow veins. Impression: Notes: Indication: ESRD (end stage renal disease) on dialysis ([facility]) [N18.6, Z99.2 (ICD-10-CM)] Right: Patent radial inflow artery with volume flow of 214 ml/min. Patent radial artery with biphasic waveforms. Average volume flow within radial to cephalic arteriovenous fistula is 410 ml/min. Patent outflow proximal cephalic vein with no evidence of stenosis or narrowing. Patent subclavian spectral Doppler waveforms. Notes: Indication: ESRD (end stage renal disease) on dialysis ([facility]) [N18.6, Z99.2 (ICD-10-CM)] Right: Patent radial inflow artery with volume flow of 214 ml/min. Patent radial artery with biphasic waveforms. Average volume flow within radial to cephalic arteriovenous fistula is 167 ml/min. Patent outflow proximal cephalic vein with no evidence of stenosis or narrowing. Patent subclavian spectral Doppler waveforms. Conclusions: patent AVF. Low flow volumes. immature fistula. Assessment/Plan Active Problems: End stage renal disease on dialysis ([facility]) Encounter for pre-operative examination 67 yo male with history of right upper extremity AVF who presents today for fistulogram Fistulogram today, if procedure goes well patient can be discharged after procedure. Ana Phan MD PGY-4 Vascular Surgery Resident 01/15/23 [facility] NURSNOTEon 01-15-2023 NURSNOTE RN educated pt on d/ c instructions. RN encouraged pt to voice any questions or concerns. Pt verbalizes no questions or concerns at this time. Pt was wheeled off of unit with all of belongings. [facility] Orders Onlyon 01-10-2023 Orders Only [id number] Corbin Murphy 1955 [facility] Provider Department Center 01/10/2023 BEBE VICKERS [facility] No family history on file [facility] Follow-Upon 01-09-2023 Follow-Up [id number] Corbin Murphy 1955 [facility] Provider Department Center 01/09/2023 Chirag-DEIDRE ASNDERSON [facility] No family history on file Level of Service:96718 MA OFFICE/OUTPATIENT ESTABLISHED LOW MDM 20-29 MIN Reason for Visit and Comments: Follow-up [565576] - radiocephalic AV fistula creation 10/04/22 [facility] Follow-Upon 10-16-2022 Follow-Up [id number] Corbin Murphy 1955 [facility] Provider Department Center 10/16/2022 116-ROSANNE ESPINOZA [facility] No family history on file Level of Service:74263 MA OFFICE/OUTPT VISIT,PROCEDURE ONLY Reason for Visit and Comments: Follow-up [970618] - 2 week post op R AVF creation Normal [facility] HPon 10-02-2022 [facility] Vascular Surgery HISTORY & PHYSICAL Reason for Admission: Right AV fistula creation History of Present Illness: Corbin Murphy is a 66 y.o. male with PMH significant for ESRD, diabetes, anemia, HTN, HLD, hypothyroidism, TN, and peripheral vascular disease. He presents today for right arteriovenous fistula creation. Patient previously had a left upper extremity av fistula, however it recently needed to be debrided due to infection and thrombosis. Vein mapping was completed prior to surgery today. Review of Systems Constitutional: Negative for activity change, appetite change, chills and fever. Respiratory: Negative for chest tightness and shortness of breath. Cardiovascular: Negative for chest pain and leg swelling. Gastrointestinal: Negative for abdominal distention, abdominal pain, nausea and vomiting. Skin: Negative for color change, pallor, rash and wound. Neurological: Negative for dizziness, light-headedness and headaches. Psychiatric/Behavioral : Negative for agitation, behavioral problems, confusion, decreased concentration and dysphoric mood. Past Medical History: Diagnosis Date Anemia Chronic kidney disease Coronary artery disease Diabetes mellitus ([facility]/HCC) Heart disease Hyperlipidemia Hypertension Hypothyroidism Myocardial infarction ([facility]/HCC) Peripheral vascular disease ([facility]) Past Surgical History: Procedure Laterality Date AV FISTULA PLACEMENT Left CARDIAC CATHETERIZATION 2 stents placed CHOLECYSTECTOMY HERNIA REPAIR TRACHEOSTOMY TUBE PLACEMENT N/A Allergies Allergen Reactions Brilinta [Ticagrelor] Other Rash Coban Dressing Current Facility-Administered Medications: lactated Ringer's infusion, 30 mL/hr, intravenous, Continuous, Elena King MD sodium chloride 0.9 % infusion, 20 mL/hr, intravenous, Continuous, Petra Degroot MD, Last Rate: 20 mL/hr at 10/02/22 1404, 20 mL/hr at 10/02/22 1404 Insert peripheral IV, , , Once AND Saline lock IV, , , Once AND sodium chloride flush 10 mL, 10 mL, intravenous, q8h PRN, Elena King MD Social History Socioeconomic History Marital status: Spouse name: Not on file Number of children: Not on file Years of education: Not on file Highest education level: Not on file Occupational History Not on file Tobacco Use Smoking status: Never Smokeless tobacco: Not on file Substance and Sexual Activity Alcohol use: Not Currently Drug use: Never Sexual activity: Not on file Other Topics Concern Not on file Social History Narrative Not on file Social Determinants of Health Financial Resource Strain: Not on file Food Insecurity: Not on file Transportation Needs: Not on file Physical Activity: Not on file Stress: Not on file Social Connections: Not on file Intimate Partner Violence: Not on file Housing Stability: Not on file No family history on file. Physical Exam: Vital Signs: There were no vitals taken for this visit. Admission Weight: Physical Exam Constitutional: General: He is not in acute distress. Appearance: Normal appearance. He is not ill-appearing or toxic-appearing. HENT: Head: Normocephalic and atraumatic. Cardiovascular: Rate and Rhythm: Normal rate. Pulmonary: Effort: Pulmonary effort is normal. No respiratory distress. Breath sounds: No stridor. No wheezing. Abdominal: General: Abdomen is flat. There is no distension. Palpations: Abdomen is soft. Tenderness: There is no abdominal tenderness. Musculoskeletal: General: No swelling, tenderness, deformity or signs of injury. Comments: LUE av fistula scars noted Skin: General: Skin is warm and dry. Coloration: Skin is not jaundiced or pale. Neurological: General: No focal deficit present. Mental Status: He is alert and oriented to person, place, and time. Psychiatric: Mood and Affect: Mood normal. Behavior: Behavior normal. Thought Content: Thought content normal. Judgment: Judgment normal. Labs: Lab Results Component Value Date WBC 6.72 06/12/2019 HGB 9.0 (L) 06/12/2019 HCT 29.8 (L) 06/12/2019 MCV 90.6 06/12/2019 PLT 221 06/12/2019 Lab Results Component Value Date GLU 128 (H) 06/12/2019 CALCIUM 8.8 06/12/2019 CO2 25 06/12/2019 BUN 31 (H) 06/12/2019 No results found for: AMYLASE No results found for: LIPASE Lab Results Component Value Date ALT 18 04/28/2019 AST 19 04/28/2019 ALKPHOS 82 04/28/2019 No results found for: INR, PROTIME Assessment: Corbin Murphy is a 66 y.o.male with PMH significant for ESRD, diabetes, anemia, HTN, HLD, hypothyroidism, TN, and peripheral vascular disease who presents today for right AV fistula creation. Plan: Will proceed with right AV fistula creation today with Dr. Alarcon Risks, benefits, and alternatives were discussed with patient and he is agreeable Jessee Mitchell MD General Surgery Resident, PGY-1 Vascular Surgery Service 10/02/22 [facility] OPNOTEon 10-02-2022 OPNOTE -- Attestation signed by Evelyn Alracon MD at 10/04/2022 12:14 PM I was present for the entire procedure. Operative Note Procedure Date: 10/02/2022 Name: Corbin Murphy : 1955 Surgeon: Dr. Evelyn Alarcon MD Resident: Halley Gutierrez MD PGY4 Pre-op Diagnosis: ESRD, need for dialysis access Post-op Diagnosis: same Procedure: right radiocephalic arteriovenous fistula creation Anesthesia Type: General Estimated Blood Loss: 25 mL Complications: none immediate Indications: Corbin Murphy is a 66 y.o. male with a history of ESRD and failed left upper extremity access. The plan for right upper extremity dialysis access was discussed with the patient. After a thorough explanation of the risks, benefits, and alternatives, the patient agreed to proceed with the operation. Informed consent was obtained. Procedure details: The patient was taken back to the operating room and positioned supine on the operating table. Cardiac monitoring was continued. Preoperative antibiotics were administered. General anesthesia was administered by the anesthesiology team and found to be adequate. The right upper extremity was extended to 90 degrees and prepped and draped in usual sterile fashion. A time-out was performed to confirm the correct patient, site, and operation. Using ultrasound-guidance, the cephalic vein was identified in the forearm and found to be of adequate diameter and depth from the skin. A transverse skin incision was made adjacent to the radial artery and cephalic vein at the wrist. Subcutaneous tissue was dissected using electrocautery and blunt/sharp dissection. The radial artery and cephalic vein were identified, dissected out, and controlled with vessel loops. Side branches were ligated using silk ties. Systemic heparin was administered. Proximal and distal control was obtained. The distal end of the cephalic vein was ligated and mobilized adjacent to the artery and appeared to lie in good position, without tension or kinking. An arteriotomy was made and a primary anastomosis was constructed between the cephalic vein and radial artery using 6-0 Prolene suture in standard continuous running fashion. Vessel loops/clamps were removed and blood flow was reestablished. A palpable thrill through the AV fistula was noted, with a strong palpable radial pulse at the wrist. Hemostasis in the surgical site was achieved with electrocautery. The subcutaneous tissues were approximated with interrupted 3-0 Vicryl suture. Skin edges were approximated using a running subcuticular Monocryl suture. Steri-strips were applied. Sponge, lap, and instrument counts were correct x2 at the end of the procedure. The patient tolerated the procedure well and was taken to the PACU in excellent condition. Dr. Alarcon was present for the entirety of the procedure. Halley Gutierrez MD General Surgery PGY4 10/03/2022 Normal [facility] POCT PERFUSION PANEL UNSOLIC ITED RESULTSon 10-02-2022 CO2 [Moles/Vol] 26.0 mmol/L Normal 21.0-29.0 [facility] Comment on above: Performed By: #### L [id number] ####[facility] ([facility] [place] [address] Glucose [Mass/Vol] 154 mg/dL High 70-105 [facility] Comment on above: Performed By: #### L [id number] ####[facility] ([facility])[address] [place] [address] HCO3 (Bld) [Moles/Vol] 24.5 mmol/L Normal 23.0-28.0 [facility] Comment on above: Performed By: #### L [id number] ####[facility] ([facility])[address] [place] [address] Hematocrit (Bld) [Volume fraction] 43 % Normal 38-51 [facility] Comment on above: Performed By: #### L [id number] ####[facility] ([facility])[address] [place] [address] Hemoglobin (Bld) [Mass/Vol] 14.6 g/dL Normal 12.0-17.0 [facility] Comment on above: Performed By: #### L [id number] ####[facility] ([facility])[address] [place] [address] POCT BASE EXCESS -1.0 mmol/L Normal -2.0-3.0 [facility] Comment on above: Performed By: #### L [id number] ####[facility] ([facility])[address] [place] [address] POCT IONIZED CALCIUM 1.26 mmol/L Normal 1.12-1.32 [facility] Comment on above: Performed By: #### L [id number] ####[facility] ([facility])[address] [place] [address] POCT PCO2 41.3 mmHg Normal 41.0-51.0 [facility] Comment on above: Performed By: #### L [id number] ####[facility] ([facility])[address] [place] [address] POCT PH 7.38 Normal 7.31-7.41 [facility] Comment on above: Performed By: #### L [id number] ####[facility] ([facility])[address] [place] [address] POCT PO2 45 mmHg Low 80-105 [facility] Comment on above: Performed By: #### L [id number] ####[facility] ([facility] [place] [address] POCT SO2 79 % Low 95-98 [facility] Comment on above: Performed By: #### L [id number] ####[facility] ([facility])[address] [place] [address] Potassium [Moles/Vol] 4.2 mmol/L Normal 3.5-4.9 [facility] Comment on above: Performed By: #### L [id number] ####[facility] ([facility])[address] [place] [address] Sodium [Moles/Vol] 137 mmol/L Low 138.0-146.0 [facility] Comment on above: Performed By: #### L [id number] ####[facility] [place] [address] US Arterial and Venous Mappi ngon 08-17-2022 US Arterial and Venous Mapping [facility] Consent for Treatmenton Consent for Treatment [id number]#1.0 0CD:127 [facility] Coding Queryon 08-10-2022 Coding Query [facility] Outside Recordson 08-02-2022 Outside Records [id number]#1.0 0CD:127 Normal [facility] Consent for Treatmenton 07-12 Consent for Treatment [id number]#1.0 0CD:127 Normal [facility] Heart and Vascular Office/Cl inic Noteon 07-30-2022 Heart and Vascular Office/Clinic Note Normal [facility] Comment on above: Result Comment: Elec tronically Signed By: Dorian FISH, Evelyn Lopez\.br\Date and Time Signed: 07/30/22 09:29 EDT Outside Recordson 07-30-2022 Outside Records [id number] CD:127 Normal [facility] Physician Orderon 07-30-2022 Physician Order [id number]#1. 00CD:127 Normal [facility] Progress Note-Physicianon Progress Note-Physician [facility] Comment on above: Result Comment: Elec tronically Signed By: Vijaya SANDOVAL\.br\Date and Time Signed: 07/15/22 12:01 EDT\.br\Electronically Co-Signed By: Vijaya SANDOVAL\.br\Date and Time Co-Signed: 07/15/22 12:02 EDT\.br\Electronically Co-Signed By: Fuentes Rodriguez MD\.br\Date and Time Co-Signed: 07/23/22 07:37 EDT C Blood Charcoalon Blood Culture Charcoal Normal [facility] Comment on above: Performed By: #### 1 [id number] ####[facility] [address] [place] [address] Blood Culture Charcoal [facility] Comment on above: Performed By: #### 1 [id number] ####[address] [place] [address] Discharge Instructionson Discharge Instructions [id number]#1.0 0CD:127 [facility] Monitor Recordon 07-20-2022 Monitor Record [id number]#1. 00CD:127 [facility] Transfer Documentson 023 Transfer Documents [id number]#1.0 0CD:127 [facility] BMPon 07-19-2022 Creatinine [Mass/Vol] 7.7 mg/dL Abnormal 0.5-1.3 [facility] Comment on above: Result Comment: Crit ical Result verified by previous result\Critical Result S_CREA:7.70 Called to JAVI JACKSON AT 3S by CATHY LERNER And Read Back For Confirmation at: 07/19/2022 08:27:40\Result S_CREA:7.70 Called to JAVI JACKSON AT 3S by CATHY LERNER And Read Back For Confirmation at: 07/19/2022 08:27:40 Performed By: #### 1 [id number], [id number], [id number] ####[facility] [address] [place] [address] Anion gap [Moles/Vol] 9 mmol/L Normal 6-16 [facility] Comment on above: Performed By: #### 1 [id number], [id number], [id number] ####[facility] [address] [place] [address] Calcium [Mass/Vol] 8.0 mg/dL Low 8.9-11.1 [facility] Comment on above: Performed By: #### 1 [id number], 6843605, [id number] ####[facility] [address] [place] [address] Chloride [Moles/Vol] 104 mmol/L Normal 101-111 [facility] Comment on above: Performed By: #### 1 [id number], 8598759, 8074622 ####[facility] [address] [place] [address] CO2 [Moles/Vol] 27 mmol/L Normal 21-31 [facility] Comment on above: Performed By: #### 1 [id number], [id number], [id number] ####[facility] [address] [place] [address] Glucose [Mass/Vol] 180 mg/dL Normal 55-199 [facility] Comment on above: Result Comment: If t his glucose result represents a fasting glucose, interpretation should refer to the following reference range: 55-99 mg/dL Performed By: #### 1 [id number], [id number], [id number] ####[facility] [address] [facility] [place] [address] Potassium [Moles/Vol] 3.7 mmol/L Normal 3.5-5.3 [facility] Comment on above: Performed By: #### 1 [id number], 8341004, 6938171 ####[facility] [address] [place] [address] Sodium [Moles/Vol] 136 mmol/L Normal 135-145 [facility] Comment on above: Performed By: #### 1 [id number], [id number], [id number] ####[facility] [address] [place] [address] Urea nitrogen [Mass/Vol] 18 mg/dL Normal 5-21 [facility] Comment on above: Performed By: #### 1 [id number], 9233379, 9060238 ####[address] [place] [address] Urea nitrogen/Creatinine [Mass ratio] 2 No Units Low 10-20 [facility] Comment on above: Performed By: #### 1 [id number], 9298562, [id number] ####[address] [address] C Blood Charcoalon 3 Blood Culture Charcoal Normal [facility] Comment on above: Performed By: #### 1 [id number] ####[address] [place] [address] CBC w/Indiceson 07-19-2022 Erythrocyte distribution width (RBC) [Ratio] 17.6 % High 10.9-14.2 [facility] Comment on above: Performed By: #### 1 [id number], 7866944, 5546514 ####[facility] [address] [place] [address] Hematocrit (Bld) [Volume fraction] 25.0 % Low 37.7-49.0 [facility] Comment on above: Performed By: #### 1 [id number], 2078388, 9914108 ####[address] [place] [address] Hemoglobin (Bld) [Mass/Vol] 8.3 g/dL Low 13.5-17.5 [facility] Comment on above: Performed By: #### 1 [id number], 7461706, 3311277 ####[address] [place] [address] MCH (RBC) [Entitic mass] 30.0 pg Normal 27.0-34.0 [facility] Comment on above: Performed By: #### 1 [id number], 0318166, 0459072 ####[address] [address] MCHC (RBC) [Mass/Vol] 33.4 g/dL Normal 31.4-36.0 [facility] Comment on above: Performed By: #### 1 [id number], 0257695, 4665993 ####[place] [address] MCV (RBC) [Entitic vol] 90.1 fL Normal 80.0-100.0 [facility] Comment on above: Performed By: #### 1 0888939, 1322002, 8745723 ####[place] [address] Platelet mean volume (Bld) [Entitic vol] 8.0 fL Normal 6.4-10.8 [facility] Comment on above: Performed By: #### 1 [id number], 9079809, 8026750 ####[address] [address] Platelets (Bld) [#/Vol] 204.0 E9/L Normal 150.0-500.0 [facility] Comment on above: Performed By: #### 1 [id number], 4513026, 4749654 ####[address] [address] RBC (Bld) [#/Vol] 2.8 E12/L Low 4.3-5.9 [facility] Comment on above: Performed By: #### 1 [id number], 6538988, 5292424 ####[address] [address] WBC corrected for nucl RBC Auto (Bld) [#/Vol] 6.1 E9/L Normal 4.0-11.0 [facility] Comment on above: Performed By: #### 1 5061115, 7417862, 1778304 ####[facility] [address] [place] [address] Capillary Glucose POCon Glucose [Mass/Vol] 198 mg/dL High 55-99 [facility] Comment on above: Result Comment: Run Lab ConfirmationNo Coverage GivenInsulin Started Performed By: #### 2 [id number] ####[facility] [address] [place] [address] Glucose [Mass/Vol] 187 mg/dL High 55- [facility] Comment on above: Result Comment: Ambrocio vargas RN/ Performed By: #### 2 [id number] ####[facility] [address] [place] [address] Glucose [Mass/Vol] 110 mg/dL High [facility] Comment on above: Result Comment: Ambrocio ELIAS Performed By: #### 2 [id number] ####[facility] [address] [place] [address] Glucose [Mass/Vol] 162 mg/dL High 55- [facility] Comment on above: Result Comment: Ambrocio ELIAS Performed By: #### 2 [id number] ####[facility] [address] [place] [address] Echo Transthoracic Completeo n 07-19-2022 Echo Transthoracic Complete Normal [facility] Inpatient Clinical Summaryon 07-19-2022 Inpatient Clinical Summary Normal [facility] Inpatient Patient Summaryon 07-19-2022 Inpatient Patient Summary Normal [facility] Inpatient Patient Summary Normal [facility] Interdisciplinary Note - Paresh e Manageron 07-19-2022 Interdisciplinary Note - Boring Mill Set Up Operator Vertical Normal [facility] Comment on above: Result Comment: Elec tronically Signed By: Sarah Tena\Date and Time Signed: 07/19/22 10:50 EDT Monitor Recordon 07-19-2022 Monitor Record [id number]#1. 00CD:127 Normal [facility] Monitor Record [id number] 60 [id number]#1. 00CD:127 Normal [facility] Monitor Record [id number] 60 [id number]#1. 00CD:127 Normal [facility] Monitor Record [id number] 60 [id number]#1. 00CD:127 Normal [facility] Monitor Record [id number] 60 [id number]#1. 00CD:127 Normal [facility] Progress Note-Nurseon 2022 Progress Note-Nurse [id number] 60 [id number]#1. 00CD:127 Normal [facility] Progress Note-Nurse [id number] 60 [id number]#1. 00CD:127 Normal [facility] Progress Note-Physicianon Progress Note-Physician Normal [facility] Comment on above: Result Comment: Elec tronically Signed By: Aaron FISH, Cristino\.br\Date and Time Signed: 07/19/22 09:34 EDT eGFRon 07-19-2022 GFR/1.73 sq M.predicted among non-blacks MDRD (S/P/Bld) [Vol rate/Area] 7 mL/min/1.73 m2 Low >=59 [facility] Comment on above: Order Comment: Order added by Discern Expert. Result Comment: Oxygen Therapy Technician jm kidney disease could be indicated at eGFR's of less than 60 mL/min/1.73m2. Kidney failure is indicated at less than 15 mL/min/1.73m2. Performed By: #### 1 [id number], 4557499, 5200570 ####[facility] [address] [place] [address] BMPon 07-18-2022 Creatinine [Mass/Vol] 9.7 mg/dL Abnormal 0.5-1.3 [facility] Comment on above: Result Comment: Crit ical Result verified by repeat analysis\Critical Result S_CREA:9.70 Called to MARC SRINIVASAN AT 3S by DK DAVIES And Read Back For Confirmation at: 07/18/2022 07:11:52\Result S_CREA:9.70 Called to MARC SRINIVASAN AT 3S by DK DAVIES And Read Back For Confirmation at: 07/18/2022 07:11:52 Performed By: #### 2 761558, 0530318, 0366279, 74709309 ####[facility] [address] [place] [address] Anion gap [Moles/Vol] 15 mmol/L Normal 6-16 [facility] Comment on above: Performed By: #### 2 599315, 3159502, 4160414, 43669898 ####[facility] [address] [place] [address] Calcium [Mass/Vol] 8.1 mg/dL Low 8.9-11.1 [facility] Comment on above: Performed By: #### 2 313593, 2027349, 0342370, 11313508 ####[facility] [address] [place] [address] Chloride [Moles/Vol] 104 mmol/L Normal 101-111 [facility] Comment on above: Performed By: #### 2 352668, 3253653, 4582112, 71824841 ####[facility] [address] [place] [address] CO2 [Moles/Vol] 23 mmol/L Normal 21-31 [facility] Comment on above: Performed By: #### 2 393302, 8470578, 4727704, 20185332 ####[facility] [address] [place] [address] Glucose [Mass/Vol] 131 mg/dL Normal 55-199 [facility] Comment on above: Result Comment: If t his glucose result represents a fasting glucose, interpretation should refer to the following reference range: 55-99 mg/dL Performed By: #### 2 890891, 2523177, 1259459, 00956758 ####[facility] [address] [place] [address] Potassium [Moles/Vol] 3.8 mmol/L Normal 3.5-5.3 [facility] Comment on above: Performed By: #### 2 265177, 9334617, 6575743, 66046127 ####[facility] [address] [place] [address] Sodium [Moles/Vol] 138 mmol/L Normal 135-145 [facility] Comment on above: Performed By: #### 2 677821, 5994403, 1802551, 81229521 ####[facility] [address] [place] [address] Urea nitrogen [Mass/Vol] 29 mg/dL High 5-21 [facility] Comment on above: Performed By: #### 2 134044, 7921288, 1904033, 07044310 ####[address] [address] Urea nitrogen/Creatinine [Mass ratio] 3 No Units Low 10-20 [facility] Comment on above: Performed By: #### 2 503778, 1502988, 7809653, 00670539 ####[facility] [address] [place] [address] C Tissueon 07-18-2022 Tissue Culture Normal [facility] Comment on above: Performed By: #### 2 349987 ####[address] [address] CBC w/Indiceson 07-18-2022 Erythrocyte distribution width (RBC) [Ratio] 17.2 % High 10.9-14.2 [facility] Comment on above: Performed By: #### 2 141935, 6191857, 8079192, 86806095 ####[address] [address] Hematocrit (Bld) [Volume fraction] 25.0 % Low 37.7-49.0 [facility] Comment on above: Performed By: #### 2 754721, 4625759, 1020789, 37848390 ####[facility] [address] [place] [address] Hemoglobin (Bld) [Mass/Vol] 8.5 g/dL Low 13.5-17.5 [facility] Comment on above: Performed By: #### 2 531918, 7909778, 8072085, 31039898 ####[facility] [address] [place] [address] MCH (RBC) [Entitic mass] 30.3 pg Normal 27.0-34.0 [facility] Comment on above: Performed By: #### 2 529856, 9159172, 0540386, 03458356 ####[address] [address] MCHC (RBC) [Mass/Vol] 33.9 g/dL Normal 31.4-36.0 [facility] Comment on above: Performed By: #### 2 344719, 0816424, 9204350, 62653727 ####[address] [address] MCV (RBC) [Entitic vol] 89.4 fL Normal 80.0-100.0 [facility] Comment on above: Performed By: #### 2 198217, 6858213, 1524917, 60903933 ####[address] [address] Platelet mean volume (Bld) [Entitic vol] 7.2 fL Normal 6.4-10.8 [facility] Comment on above: Performed By: #### 2 419133, 6298296, 5164440, 87649224 ####[address] [address] Platelets (Bld) [#/Vol] 187.0 E9/L Normal 150.0-500.0 [facility] Comment on above: Performed By: #### 2 296614, 0600771, 4109254, 58836805 ####[address] [address] RBC (Bld) [#/Vol] 2.8 E12/L Low 4.3-5.9 [facility] Comment on above: Performed By: #### 2 253590, 9738009, 4634348, 53660118 ####[facility] [address] [place] [address] WBC corrected for nucl RBC Auto (Bld) [#/Vol] 5.6 E9/L Normal 4.0-11.0 [facility] Comment on above: Performed By: #### 2 602337, 0360334, 5160271, 66678588 ####[facility] [address] [place] [address] Capillary Glucose POCon Glucose [Mass/Vol] 288 mg/dL High 55-99 [facility] Comment on above: Result Comment: Ambrocio ELIAS Performed By: #### 2 41654785 ####[address] [address] Glucose [Mass/Vol] 267 mg/dL High 55-99 [facility] Comment on above: Result Comment: Ambrocio ELIAS Performed By: #### 2 33374646 ####[address] [address] Glucose [Mass/Vol] 122 mg/dL High 55-99 [facility] Comment on above: Result Comment: Ambrocio ELIAS Performed By: #### 2 31658759 ####[address] [address] Glucose [Mass/Vol] 129 mg/dL High 55-99 [facility] Comment on above: Result Comment: Ambrocio ELIAS Performed By: #### 2 79405065 ####[address] [address] Interdisciplinary Note - Paresh e Manageron 07-18-2022 Interdisciplinary Note - Boring Mill Set Up Operator Vertical [facility] Comment on above: Result Comment: Elec tronically Signed By: Obie TORREZ, Alaina\.asael\Date and Time Signed: 07/18/22 11:15 EDT IntraOperative Documentson 0 07-18-2022 IntraOperative Documents [id number]#1. 00CD:127 Normal [facility] Message from Medicareon 06-0 Message from Medicare [id number]#1. 00CD:127 [facility] Message from Medicare [id number]#1.0 0CD:127 [facility] Monitor Recordon 07-18-2022 Monitor Record [id number]#1. 00CD:127 [facility] Monitor Record [id number] 60 [id number]#1. 00CD:127 [facility] Monitor Record [id number] 60 [id number]#1. 00CD:127 [facility] Monitor Record [id number] 60 [id number]#1. 00CD:127 [facility] Progress Note - Pharmacyon 0 07-18-2022 Progress Note - Pharmacy [facility] Progress Note-Physicianon Progress Note-Physician [facility] Comment on above: Result Comment: Elec tronically Signed By: Vijaya SANDOVAL\.br\Date and Time Signed: 07/18/22 13:34 EDT\.br\Electronically Co-Signed By: Pedro ARAUZ MD\.br\Date and Time Co-Signed: 07/18/22 16:54 EDT Progress Note-Physician [facility] Comment on above: Result Comment: Elec tronically Signed By: Sarah Torres NP\.br\Date and Time Signed: 07/17/22 18:08 EDT\.br\Electronically Co-Signed By: Vane Miller MD\.br\Date and Time Co-Signed: 07/18/22 13:58 EDT Progress Note-Physician [facility] Comment on above: Result Comment: Elec tronically Signed By: Vane Miller MD\.br\Date and Time Signed: 07/18/22 13:15 EDT Progress Note-Physician Normal [facility] Comment on above: Result Comment: Elec tronically Signed By: Vijaya SANDOVAL\.br\Date and Time Signed: 07/17/22 11:34 EDT\.br\Electronically Co-Signed By: Pedro ARAUZ MD\.br\Date and Time Co-Signed: 07/18/22 08:23 EDT Vanco Troughon 07-18-2022 VANCOMYCIN 19 microgram/mL Normal 10-20 [facility] Comment on above: Order Comment: Pleas e draw one hour prior to next dose at on . Thank you. Performed By: #### 2 403234, 0427025, 0949945, 14513488 ####[facility] [address] [place] [address] eGFRon 07-18-2022 GFR/1.73 sq M.predicted among non-blacks MDRD (S/P/Bld) [Vol rate/Area] 5 mL/min/1.73 m2 Low >=59 [facility] Comment on above: Order Comment: Order added by Discern Expert. Result Comment: Oxygen Therapy Technician jm kidney disease could be indicated at eGFR's of less than 60 mL/min/1.73m2. Kidney failure is indicated at less than 15 mL/min/1.73m2. Performed By: #### 2 318347, 6071575, 0439634, 69876684 ####[facility] [address] [place] [address] BMPon 07-17-2022 Creatinine [Mass/Vol] 8.0 mg/dL Abnormal 0.5-1.3 [facility] Comment on above: Result Comment: Crit ical Result verified by repeat analysis\Critical Result S_CREA:8.00 Called to SILVIO ARZOLA AT 3S by MARC ROSALES And Read Back For Confirmation at: 07/17/2022 09:09:10\Result S_CREA:8.00 Called to SILVIO ARZOLA AT 3S by MARC ROSALES And Read Back For Confirmation at: 07/17/2022 09:09:10 Performed By: #### 1 7779460, 7818865 ####[facility] [address] [place] [address] Urea nitrogen [Mass/Vol] 23 mg/dL High 5-21 [facility] Comment on above: Performed By: #### 1 5629951, 1036548 ####[facility] [address] [place] [address] Urea nitrogen/Creatinine [Mass ratio] 3 No Units Low 10-20 [facility] Comment on above: Performed By: #### 1 1805925, 2450655 ####[facility] [address] [place] [address] Anion gap [Moles/Vol] 14 mmol/L Normal 6-16 [facility] Comment on above: Performed By: #### 1 0487738, 8971792 ####[facility] [address] [place] [address] Calcium [Mass/Vol] 7.8 mg/dL Low 8.9-11.1 [facility] Comment on above: Performed By: #### 1 9429083, 7670471 ####[facility] [address] [place] [address] Chloride [Moles/Vol] 100 mmol/L Low 101-111 [facility] Comment on above: Performed By: #### 1 8569105, 5154516 ####[facility] [address] [place] [address] CO2 [Moles/Vol] 27 mmol/L Normal 21-31 [facility] Comment on above: Performed By: #### 1 1028587, 6480308 ####[facility] [address] [place] [address] Glucose [Mass/Vol] 195 mg/dL Normal 55-199 [facility] Comment on above: Result Comment: If t his glucose result represents a fasting glucose, interpretation should refer to the following reference range: 55-99 mg/dL Performed By: #### 1 1456867, 5611875 ####[address] [address] Potassium [Moles/Vol] 4.1 mmol/L Normal 3.5-5.3 [facility] Comment on above: Performed By: #### 1 4676825, 8131535 ####[address] [address] Sodium [Moles/Vol] 137 mmol/L Normal 135-145 [facility] Comment on above: Performed By: #### 1 5799393, 3067461 ####[address] [address] Capillary Glucose POCon Glucose [Mass/Vol] 243 mg/dL High 55-99 [facility] Comment on above: Result Comment: Ambrocio ELIAS Performed By: #### 2 38805969 ####[address] [address] Glucose [Mass/Vol] 327 mg/dL High 55-99 [facility] Comment on above: Result Comment: Ambrocio ELIAS Performed By: #### 2 89032307 ####[address] [address] Glucose [Mass/Vol] 290 mg/dL High 55-99 [facility] Comment on above: Result Comment: Ambrocio ELIAS Performed By: #### 2 16529737 ####[address] [address] Glucose [Mass/Vol] 188 mg/dL High 55-99 [facility] Comment on above: Result Comment: Ambrocio ELIAS Performed By: #### 2 00565217 ####[address] [address] Consent for Anesthesiaon Consent for Anesthesia [id number]#1. 00CD:127 Normal [facility] H&P Updateon 07-17-2022 H&P Update [id number]#1. 00CD:127 [facility] Interdisciplinary Note - Paresh e Manageron 07-17-2022 Interdisciplinary Note - Boring Mill Set Up Operator Vertical [facility] Comment on above: Result Comment: Elec tronically Signed By: Sarah Tena\.br\Date and Time Signed: 07/17/22 11:30 EDT IntraOperative Documentson 0 07-17-2022 IntraOperative Documents [id number]#1. 00CD:127 [facility] Main OR Intraoperative Recor don 07-17-2022 Main OR Intraoperative Record [facility] Monitor Recordon 07-17-2022 Monitor Record [id number]#1. 00CD:127 [facility] Monitor Record [id number] 60 [id number]#1. 00CD:127 [facility] Operative Reporton Operative Report [facility] Comment on above: Result Comment: Elec tronically Signed By: Dorian FISH, Evelyn Lopez\.br\Date and Time Signed: 07/17/22 13:42 EDT Progress Note-Physicianon Progress Note-Physician [facility] Comment on above: Result Comment: Elec tronically Signed By: Gino Feliz Jr, DO\.br\Date and Time Signed: 07/17/22 17:48 EDT Progress Note-Physician [facility] Comment on above: Result Comment: Elec tronically Signed By: Alfredo Acosta M.D\.br\Date and Time Signed: 07/17/22 14:03 EDT eGFRon 07-17-2022 GFR/1.73 sq M.predicted among non-blacks MDRD (S/P/Bld) [Vol rate/Area] 7 mL/min/1.73 m2 Low >=59 [facility] Comment on above: Order Comment: Order added by Discern Expert. Result Comment: Oxygen Therapy Technician jm kidney disease could be indicated at eGFR's of less than 60 mL/min/1.73m2. Kidney failure is indicated at less than 15 mL/min/1.73m2. Performed By: #### 1 4595416, 7369453 ####[facility] [address] [place] [address] BMPon 07-16-2022 Creatinine [Mass/Vol] 11.6 mg/dL Abnormal 0.5-1.3 [facility] Comment on above: Result Comment: Crit ical Result verified by previous result\Critical Result S_CREA:11.60 Called to SILVIO ARZOLA AT 3S by CATHYSA LERNER And Read Back For Confirmation at: 07/16/2022 11:03:55\Result S_CREA:11.60 Called to SILVIO ARZOLA AT 3S by CATHYSA LERNER And Read Back For Confirmation at: 07/16/2022 11:03:55 Performed By: #### 1 7172762, 3139952, 5958862, 72419674 ####[facility] [address] [place] [address] Anion gap [Moles/Vol] 17 mmol/L High 6-16 [facility] Comment on above: Performed By: #### 1 2392974, 6688673, 6990628, 13798676 ####[facility] [address] [place] [address] Calcium [Mass/Vol] 8.4 mg/dL Low 8.9-11.1 [facility] Comment on above: Performed By: #### 1 2865547, 8540515, 3473359, 40829054 ####[facility] [address] [place] [address] Chloride [Moles/Vol] 100 mmol/L Low 101-111 [facility] Comment on above: Performed By: #### 1 7109296, 0176313, 3982271, 64093038 ####[facility] [address] [place] [address] CO2 [Moles/Vol] 24 mmol/L Normal 21-31 [facility] Comment on above: Performed By: #### 1 6124778, 1186155, 4962452, 08087890 ####[facility] [address] [place] [address] Glucose [Mass/Vol] 293 mg/dL High 55-199 [facility] Comment on above: Result Comment: If t his glucose result represents a fasting glucose, interpretation should refer to the following reference range: 55-99 mg/dL Performed By: #### 1 5129183, 7766124, 6052040, 85313503 ####[facility] [address] [place] [address] Potassium [Moles/Vol] 4.0 mmol/L Normal 3.5-5.3 [facility] Comment on above: Performed By: #### 1 3855229, 1121555, 8008564, 14895422 ####[facility] [address] [place] [address] Sodium [Moles/Vol] 137 mmol/L Normal 135-145 [facility] Comment on above: Performed By: #### 1 4250352, 4819862, 5362737, 66547188 ####[facility] [address] [place] [address] Urea nitrogen [Mass/Vol] 47 mg/dL High 5-21 [facility] Comment on above: Performed By: #### 1 6939371, 6008148, 1961326, 57810710 ####[facility] [address] [place] [address] Urea nitrogen/Creatinine [Mass ratio] 4 No Units Low 10-20 [facility] Comment on above: Performed By: #### 1 5945232, 4776681, 3020768, 78196818 ####[facility] [address] [place] [address] Capillary Glucose POCon 06-0 Glucose [Mass/Vol] 207 mg/dL High 55-99 [facility] Comment on above: Result Comment: Ambrocio vargas RN/ Performed By: #### 2 92908022 ####[facility] [address] [place] [address] Glucose [Mass/Vol] 167 mg/dL High 55-99 [facility] Comment on above: Result Comment: Ambrocio vargas RN/ Performed By: #### 2 33801591 ####[facility] [address] [place] [address] Glucose [Mass/Vol] 266 mg/dL High 55-99 [facility] Comment on above: Result Comment: Ambrocio vargas RN/ Performed By: #### 2 43123806 ####[facility] [address] [place] [address] Glucose [Mass/Vol] 309 mg/dL High 55-99 [facility] Comment on above: Result Comment: Danielle joe Meter Performed By: #### 2 28984606 ####[place] [address] [place] [address]57 Consent for Procedure/Surger yon 07-16-2022 Consent for Procedure/Surgery [id number]#1.0 0CD:127 Normal [facility] Electrocardiogram - 12 leado n 07-16-2022 Electrocardiogram - 12 lead [id number]#1.0 0CD:127 Normal [facility] Hct & Hgbon 07-16-2022 Hematocrit (Bld) [Volume fraction] 23.9 % Low 37.7-49.0 [facility] Comment on above: Performed By: #### 1 9388338, 5405463, 8363661, 59017189 ####[place] [address] [place] [address] Hemoglobin (Bld) [Mass/Vol] 8.2 g/dL Low 13.5-17.5 [facility] Comment on above: Performed By: #### 1 2534910, 9121242, 2501902, 03124051 ####[facility] [address] [place] [address] Interdisciplinary Note - Paresh e Manageron 07-16-2022 Interdisciplinary Note - Boring Mill Set Up Operator Vertical CRM to room and patient is down in OR with Vascular Patient is here for an infection as an inpatient. Patient was diagnosed with LUE AVF infection and thrombosis Patient was accepted to [facility] and plan will be to DC there once medically ready [facility] Comment on above: Result Comment: Elec tronically Signed By: Tia White\.br\Date and Time Signed: 07/16/22 12:44 EDT Main OR PACU I Recordon 06 Main OR PACU I Record [facility] Monitor Recordon 07-16-2022 Monitor Record [id number]#1. 00CD:127 [facility] Monitor Record [id number] 60 [id number]#1. 00CD:127 [facility] Monitor Record [id number]#1. 00CD:127 [facility] Monitor Record [id number] 60 [id number]#1. 00CD:127 [facility] Progress Note - Pharmacyon 0 07-16-2022 Progress Note - Pharmacy [facility] Progress Note-Nurseon 2022 Progress Note-Nurse [id number]#1. 00CD:127 [facility] Progress Note-Physicianon Progress Note-Physician [facility] Comment on above: Result Comment: Elec tronically Signed By: Gino Feliz Jr, DO\.br\Date and Time Signed: 07/16/22 14:49 EDT Progress Note-Physician [facility] Comment on above: Result Comment: Elec tronically Signed By: Vijaya SANDOVAL\.br\Date and Time Signed: 07/16/22 11:35 EDT\.br\Electronically Co-Signed By: Pedro ARAUZ MD\.br\Date and Time Co-Signed: 07/16/22 12:52 EDT Progress Note-Physician [facility] Comment on above: Result Comment: Elec tronically Signed By: Vane Miller MD\.br\Date and Time Signed: 07/16/22 12:12 EDT Vanco Troughon 07-16-2022 VANCOMYCIN 27 microgram/mL Abnormal 10-20 [facility] Comment on above: Result Comment: Crit ical Result verified by repeat analysis\Critical Result S_VANC_T:27.0 Called to SILVIO ARZOLA AT 3S by CATHY LERNER And Read Back For Confirmation at: 07/16/2022 07:34:50 Performed By: #### 1 [id number], 5583959, 3027328, 24914586 ####[facility] [address] [place] [address] eGFRon 07-16-2022 GFR/1.73 sq M.predicted among non-blacks MDRD (S/P/Bld) [Vol rate/Area] 4 mL/min/1.73 m2 Low >=59 [facility] Comment on above: Order Comment: Order added by Discern Expert. Result Comment: Oxygen Therapy Technician jm kidney disease could be indicated at eGFR's of less than 60 mL/min/1.73m2. Kidney failure is indicated at less than 15 mL/min/1.73m2. Performed By: #### 1 0870678, 2662934, 9410680, 37494030 ####[facility] [address] [place] [address] Auto Diffon 07-15-2022 Basophils/100 WBC (Bld) 1.2 % Normal 0.0-2.0 [facility] Comment on above: Order Comment: Order Added by Discern Expert. Performed By: #### 1 7790645, 0070167, 6608337, 2380727 ####[facility] [address] [place] [address] Basophils/Leukocytes Auto (Bld) [Pure # fraction] 0.1 E9/L Normal 0.0-0.2 [facility] Comment on above: Order Comment: Order Added by Discern Expert. Performed By: #### 1 1221048, 4810277, 0303194, 8162723 ####[facility] [address] [place] [address] Eosinophils/100 WBC (Bld) 3.4 % Normal 0.0-8.0 [facility] Comment on above: Order Comment: Order Added by Discern Expert. Performed By: #### 1 0876902, 1879242, 3157454, 6832903 ####[address] [address] Eosinophils/Leukocyt es Auto (Bld) [Pure # fraction] 0.2 E9/L Normal 0.0-0.5 [facility] Comment on above: Order Comment: Order Added by Discern Expert. Performed By: #### 1 7307277, 9360275, 2032522, 3535722 ####[address] [address] Lymphocytes/100 WBC (Bld) 11.3 % Low 14.0-50.0 [facility] Comment on above: Order Comment: Order Added by Cayla Expert. Performed By: #### 1 4825694, 8120641, 9978466, 4498487 ####[address] [address] Lymphocytes/Leukocyt es Auto (Bld) [Pure # fraction] 0.6 E9/L Low 1.0-4.0 [facility] Comment on above: Order Comment: Order Added by Cayla Expert. Performed By: #### 1 9954849, 5583290, 4638269, 9729373 ####[address] [address] Monocytes/100 WBC (Bld) 16.4 % High 4.0-14.0 [facility] Comment on above: Order Comment: Order Added by Discern Expert. Performed By: #### 1 2047274, 2233236, 7122326, 9169406 ####[address] [address] Monocytes/Leukocytes Auto (Bld) [Pure # fraction] 0.9 E9/L Normal 0.2-1.0 [facility] Comment on above: Order Comment: Order Added by Cayla Expert. Performed By: #### 1 9355685, 8600525, 1063982, 6925933 ####[place] [address] [address] Neutrophils/100 WBC (Bld) 67.7 % Normal 36.0-75.0 [facility] Comment on above: Order Comment: Order Added by Discern Expert. Performed By: #### 1 5028604, 0417344, 5696859, 5471692 ####[address] [address] Neutrophils/Leukocyt es Auto (Bld) [Pure # fraction] 3.7 E9/L Normal 2.0-7.5 [facility] Comment on above: Order Comment: Order Added by Discern Expert. Performed By: #### 1 3079200, 4317579, 7359204, 8987748 ####[address] [address] CBC w/ Auto Diffon 3 Erythrocyte distribution width (RBC) [Ratio] 16.7 % High 10.9-14.2 [facility] Comment on above: Performed By: #### 1 7421263, 6843970, 4292704, 8319407 ####[address] [address] Hematocrit (Bld) [Volume fraction] 24.3 % Low 37.7-49.0 [facility] Comment on above: Performed By: #### 1 9060793, 1299148, 0346465, 4314432 ####[address] [address] Hemoglobin (Bld) [Mass/Vol] 8.0 g/dL Low 13.5-17.5 [facility] Comment on above: Performed By: #### 1 4040620, 2380953, 2541150, 1247200 ####[address] [address] MCH (RBC) [Entitic mass] 29.7 pg Normal 27.0-34.0 [facility] Comment on above: Performed By: #### 1 5462571, 3927875, 7344202, 3545564 ####[address] [place] [address] MCHC (RBC) [Mass/Vol] 32.9 g/dL Normal 31.4-36.0 [facility] Comment on above: Performed By: #### 1 9439590, 8935367, 1625379, 5527623 ####[address] [address] MCV (RBC) [Entitic vol] 90.1 fL Normal 80.0-100.0 [facility] Comment on above: Performed By: #### 1 6913451, 0749307, 8028677, 3665864 ####[address] [address] Platelet mean volume (Bld) [Entitic vol] 7.9 fL Normal 6.4-10.8 [facility] Comment on above: Performed By: #### 1 1406364, 7943863, 8084890, 2495785 ####[address] [address] Platelets (Bld) [#/Vol] 219.0 E9/L Normal 150.0-500.0 [facility] Comment on above: Performed By: #### 1 2763564, 9007431, 8444388, 4297711 ####[address] [address] RBC (Bld) [#/Vol] 2.7 E12/L Low 4.3-5.9 [facility] Comment on above: Performed By: #### 1 0181557, 2435097, 8771381, 6525342 ####[address] [address] WBC corrected for nucl RBC Auto (Bld) [#/Vol] 5.5 E9/L Normal 4.0-11.0 [facility] Comment on above: Performed By: #### 1 0119392, 6306635, 9867034, 9730006 ####[address] [address] CMPon 07-15-2022 Creatinine [Mass/Vol] 10.0 mg/dL Abnormal 0.5-1.3 [facility] Comment on above: Result Comment: Crit ical Result S_CREA:10.00 Called to HIRO VALERIO AT 3S by CATHY LERNER And Read Back For Confirmation at: 07/15/2022 10:15:30\Result S_CREA:10.00 Called to HIRO VALERIO AT 3S by CATHY LERNER And Read Back For Confirmation at: 07/15/2022 10:15:30\ATTEMPTED TO CALL RESULT X2\Critical Result verified by previous result Performed By: #### 1 2284953, 7058899, 6667470, 7964100 ####[facility] [address] [place] [address] Albumin [Mass/Vol] 2.2 g/dL Low 3.3-5.0 [facility] Comment on above: Performed By: #### 1 5816323, 7208107, 1047973, 6368948 ####[facility] [address] [place] [address] Albumin/Globulin (S) [Mass conc ratio] 0.7 Low 1.1-2.2 [facility] Comment on above: Performed By: #### 1 8490800, 2050377, 8353739, 7327236 ####[facility] [address] [place] [address] ALP [Catalytic activity/Vol] 39 Int._Unit/L Normal 21-98 [facility] Comment on above: Performed By: #### 1 3367836, 5193012, 4142519, 5279555 ####[facility] [address] [place] [address] ALT No additional P-5'-P [Catalytic activity/Vol] 17 Int._Unit/L Normal 6-46 [facility] Comment on above: Performed By: #### 1 2460952, 6376675, 9256150, 0523572 ####[facility] [address] [place] [address] Anion gap [Moles/Vol] 15 mmol/L Normal 6-16 [facility] Comment on above: Performed By: #### 1 6405877, 0484884, 8355488, 2132479 ####[facility] [address] [place] [address] AST [Catalytic activity/Vol] 47 Int._Unit/L High 5-43 [facility] Comment on above: Performed By: #### 1 3921400, 5124289, 9650040, 4771781 ####[facility] [address] [place] [address] Bilirubin [Mass/Vol] 0.8 mg/dL Normal 0.0-1.1 [facility] Comment on above: Performed By: #### 1 0597860, 8987665, 4176982, 0435047 ####[facility] [address] [place] [address] Calcium [Mass/Vol] 8.6 mg/dL Low 8.9-11.1 [facility] Comment on above: Performed By: #### 1 5432036, 2500112, 0590463, 8394462 ####[facility] [address] [facility] [place] [address] Chloride [Moles/Vol] 100 mmol/L Low 101-111 [facility] Comment on above: Performed By: #### 1 6294721, 9059318, 6092585, 9940994 ####[facility] [address] [place] [address] CO2 [Moles/Vol] 24 mmol/L Normal 21-31 [facility] Comment on above: Performed By: #### 1 9669050, 6118076, 0462802, 0802951 ####[facility] [address] [place] [address] Globulin (S) [Mass/Vol] 3.2 g/dL Normal 1.4-4.0 [facility] Comment on above: Performed By: #### 1 8616033, 2616436, 2829185, 7609749 ####[facility] [address] [place] [facility] [place] [address] Glucose [Mass/Vol] 202 mg/dL High 55-199 [facility] Comment on above: Result Comment: If t his glucose result represents a fasting glucose, interpretation should refer to the following reference range: 55-99 mg/dL Performed By: #### 1 9488358, 2011888, 2087747, 4975431 ####[facility] [address] [place] [address] Potassium [Moles/Vol] 3.7 mmol/L Normal 3.5-5.3 [facility] Comment on above: Performed By: #### 1 2707947, 2105434, 1869959, 6442292 ####[facility] [address] [place] [address] Protein [Mass/Vol] 5.4 g/dL Low 6.0-7.8 [facility] Comment on above: Performed By: #### 1 6888538, 2970262, 8902967, 6756661 ####[facility] [address] [place] [address] Sodium [Moles/Vol] 135 mmol/L Normal 135-145 [facility] Comment on above: Performed By: #### 1 2729064, 5856795, 1979363, 2136656 ####[facility] [address] [place] [address] Urea nitrogen [Mass/Vol] 42 mg/dL High 5-21 [facility] Comment on above: Performed By: #### 1 8869253, 4806487, 1847172, 3463856 ####[facility] [address] [place] [address] Urea nitrogen/Creatinine [Mass ratio] 4 No Units Low 10-20 [facility] Comment on above: Performed By: #### 1 2527911, 2999197, 3248057, 1170451 ####[facility] [address] [place] [address] Capillary Glucose POCon 06-0 -2022 Glucose [Mass/Vol] 323 mg/dL High 55-99 [facility] Comment on above: Result Comment: Ambrocio vargas RN/ Performed By: #### 2 47483290 ####[facility] [address] [place] [address] Glucose [Mass/Vol] 297 mg/dL High 55-[address] [place] [address] Comment on above: Performed By: #### 2 16278962 ####[facility] [address] [place] [address] Glucose [Mass/Vol] 244 mg/dL High 55-[address] [place] [address] Comment on above: Result Comment: Ambrocio vargas RN/ Performed By: #### 2 28745102 ####[facility] [address] [place] [address] Glucose [Mass/Vol] 317 mg/dL High 55-[address] [place] [address] Comment on above: Result Comment: Ambrocio vargas RN/ Performed By: #### 2 60677835 ####[facility] [address] [place] [address] Glucose [Mass/Vol] 171 mg/dL High -[address] [place] [address] Comment on above: Result Comment: Ambrocio vargas RN/ Performed By: #### 2 79633292 ####[facility] [address] [place] [address] Hep Bs Agon 07-15-2022 HBV surface Ag IA Ql Negative Invalid Interpretation Code Negative [facility] Comment on above: Result Comment: Perf ormed at: [facility] [address] [id number] PhD Jany Aparicio Performed By: #### 1 2536700, 9568194, 8505717, 6004469, 8058635, 4166517 ####[facility] [address] [place] [address] Interdisciplinary Note - Paresh e Manageron 07-15-2022 Interdisciplinary Note - Boring Mill Set Up Operator Vertical Pt is aware [facility]CC has accepted. Pt will see Vascular and ID this week. Ant dc TBD. 3MN was met today. CRM to follow. Normal [facility] Comment on above: Result Comment: Elec tronically Signed By: Sarah Tena\Date and Time Signed: 06/04/23 11:25 EDT Monitor Recordon 07-15-2022 Monitor Record [id number] 60 [id number]#1. 00CD:127 Normal [facility] Monitor Record [id number] 60 [id number]#1. 00CD:127 Normal [facility] Monitor Record [id number] 60 [id number]#1. 00CD:127 Normal [facility] Monitor Record [id number] 60 [id number]#1. 00CD:127 Normal [facility] eGFRon 07-15-2022 GFR/1.73 sq M.predicted among non-blacks MDRD (S/P/Bld) [Vol rate/Area] 5 mL/min/1.73 m2 Low >=59 [facility] Comment on above: Order Comment: Order added by Discern Expert. Result Comment: Oxygen Therapy Technician jm kidney disease could be indicated at eGFR's of less than 60 mL/min/1.73m2. Kidney failure is indicated at less than 15 mL/min/1.73m2. Performed By: #### 1 5360695, 8512235, 7889425, 3432045 ####[facility] [address] [place] [address] Auto Diffon 07-14-2022 Basophils/100 WBC (Bld) 0.7 % Normal 0.0-2.0 [facility] Comment on above: Order Comment: Order Added by Discern Expert. Performed By: #### 1 5613951, 5282233, 1551497, 2631337, 9607809, 9122957 ####[facility] [address] [place] [address] Basophils/Leukocytes Auto (Bld) [Pure # fraction] 0.1 E9/L Normal 0.0-0.2 [facility] Comment on above: Order Comment: Order Added by Discern Expert. Performed By: #### 1 4762749, 9774826, 8112233, 1577573, 5374300, 4355596 ####[facility] [address] [place] [address] Eosinophils/100 WBC (Bld) 1.1 % Normal 0.0-8.0 [facility] Comment on above: Order Comment: Order Added by Discern Expert. Performed By: #### 1 2469976, 2054797, 9981245, 1092928, 9527802, 1515824 ####[place] [address] [place] [address] Eosinophils/Leukocyt es Auto (Bld) [Pure # fraction] 0.1 E9/L Normal 0.0-0.5 [facility] Comment on above: Order Comment: Order Added by Discern Expert. Performed By: #### 1 4246391, 3523493, 1386843, 3308559, 8916144, 5282143 ####[address] [address] Lymphocytes/100 WBC (Bld) 1.7 % Low 14.0-50.0 [facility] Comment on above: Order Comment: Order Added by Discern Expert. Performed By: #### 1 2427937, 8850234, 3727021, 2175859, 8212306, 4880392 ####[address] [address] Lymphocytes/Leukocyt es Auto (Bld) [Pure # fraction] 0.2 E9/L Low 1.0-4.0 [facility] Comment on above: Order Comment: Order Added by Discern Expert. Performed By: #### 1 3953270, 6106638, 4490641, 6649301, 4837213, 5364720 ####[address] [place] [address] Monocytes/100 WBC (Bld) 6.3 % Normal 4.0-14.0 [facility] Comment on above: Order Comment: Order Added by Discern Expert. Performed By: #### 1 3953508, 4203070, 5469262, 3317704, 1317129, 6117109 ####[address] [address] Monocytes/Leukocytes Auto (Bld) [Pure # fraction] 0.7 E9/L Normal 0.2-1.0 [facility] Comment on above: Order Comment: Order Added by Discern Expert. Performed By: #### 1 8475737, 2187681, 5220896, 6657362, 4053005, 6832153 ####[facility] [address] [place] [address] Neutrophils/100 WBC (Bld) 90.2 % High 36.0-75.0 [facility] Comment on above: Order Comment: Order Added by Discern Expert. Performed By: #### 1 1738901, 3923848, 1760336, 3922440, 9521053, 2749175 ####[facility] [address] [place] [address] Neutrophils/Leukocyt es Auto (Bld) [Pure # fraction] 9.9 E9/L High 2.0-7.5 [facility] Comment on above: Order Comment: Order Added by Discern Expert. Performed By: #### 1 4859662, 4797190, 2401305, 9332338, 7421713, 8479950 ####[facility] [address] [place] [address] BMPon 07-14-2022 Creatinine [Mass/Vol] 7.2 mg/dL High 0.5-1.3 [facility] Comment on above: Performed By: #### 1 3740301, 8651310, 8659785, 1510783, 7427505, 9891237 ####[facility] [address] [place] [address] Anion gap [Moles/Vol] 15 mmol/L Normal 6-16 [facility] Comment on above: Performed By: #### 1 1479443, 7783433, 9761341, 1421738, 5121073, 1447320 ####[facility] [address] [place] [address] Calcium [Mass/Vol] 8.2 mg/dL Low 8.9-11.1 [facility] Comment on above: Performed By: #### 1 4198651, 7162007, 2675218, 3831333, 3435144, 2662265 ####[facility] [address] [place] [address] Chloride [Moles/Vol] 98 mmol/L Low 101-111 [facility] Comment on above: Performed By: #### 1 8954374, 2952045, 2045118, 7185802, 0721441, 8746443 ####[facility] [address] [place] [address] CO2 [Moles/Vol] 24 mmol/L Normal 21-31 [facility] Comment on above: Performed By: #### 1 5521485, 9497882, 3032922, 8038521, 0556108, 2844849 ####[facility] [address] [place] [address] Glucose [Mass/Vol] 190 mg/dL Normal 55-199 [facility] Comment on above: Result Comment: If t his glucose result represents a fasting glucose, interpretation should refer to the following reference range: 55-99 mg/dL Performed By: #### 1 1188388, 4766226, 0686466, 1630784, 8106899, 4494814 ####[facility] [address] [place] [address] Potassium [Moles/Vol] 3.7 mmol/L Normal 3.5-5.3 [facility] Comment on above: Performed By: #### 1 3443592, 6428864, 3983936, 4905104, 8254549, 0078009 ####[facility] [address] [place] [address] Sodium [Moles/Vol] 133 mmol/L Low 135-145 [facility] Comment on above: Performed By: #### 1 1943763, 3932343, 0210524, 5414154, 9696333, 9477599 ####[facility] [address] [place] [address] Urea nitrogen [Mass/Vol] 26 mg/dL High 5-21 [facility] Comment on above: Performed By: #### 1 0829185, 1990532, 4270929, 5183866, 5367050, 7086277 ####[facility] [address] [place] [address] Urea nitrogen/Creatinine [Mass ratio] 4 No Units Low 10-20 [facility] Comment on above: Performed By: #### 1 6554968, 3875423, 3891292, 6343867, 8568486, 2593697 ####[facility] [address] [place] [address] C [place] 07-14-2022 Wound Culture Normal [facility] Comment on above: Performed By: #### 2 069117 ####[facility] [address] [place] [address] CBC w/ Auto Diffon 3 Erythrocyte distribution width (RBC) [Ratio] 17.1 % High 10.9-14.2 [facility] Comment on above: Performed By: #### 1 1166228, 6777613, 4329841, 3186057, 2516403, 5576179 ####[facility] [address] [place] [address] Hematocrit (Bld) [Volume fraction] 25.5 % Low 37.7-49.0 [facility] Comment on above: Performed By: #### 1 4803905, 8257308, 8345577, 6650350, 6221971, 5530195 ####[facility] [address] [place] [address] Hemoglobin (Bld) [Mass/Vol] 8.5 g/dL Low 13.5-17.5 [facility] Comment on above: Performed By: #### 1 6797143, 7796545, 2978118, 9214443, 8317276, 9768010 ####[facility] [address] [place] [address] MCH (RBC) [Entitic mass] 29.6 pg Normal 27.0-34.0 [facility] Comment on above: Performed By: #### 1 2066673, 2381903, 3662468, 8042849, 5320293, 0267119 ####[address] [place] [address] MCHC (RBC) [Mass/Vol] 33.2 g/dL Normal 31.4-36.0 [facility] Comment on above: Performed By: #### 1 5314330, 8679799, 7030563, 0068775, 0751638, 2688916 ####[address] [address] MCV (RBC) [Entitic vol] 89.4 fL Normal 80.0-100.0 [facility] Comment on above: Performed By: #### 1 6862182, 1879791, 3080944, 1007389, 3244985, 2960194 ####[place] [address] Platelet mean volume (Bld) [Entitic vol] 7.6 fL Normal 6.4-10.8 [facility] Comment on above: Performed By: #### 1 8387441, 1228874, 5284168, 3330232, 3383397, 0198836 ####[address] [address] Platelets (Bld) [#/Vol] 219.0 E9/L Normal 150.0-500.0 [facility] Comment on above: Performed By: #### 1 4304666, 6473507, 9872842, 1776086, 8647703, 1795438 ####[place] [address] RBC (Bld) [#/Vol] 2.8 E12/L Low 4.3-5.9 [facility] Comment on above: Performed By: #### 1 0289168, 7714739, 2134048, 9622610, 6116289, 5815936 ####[address] [address] WBC corrected for nucl RBC Auto (Bld) [#/Vol] 11.0 E9/L Normal 4.0-11.0 [facility] Comment on above: Performed By: #### 1 0599696, 2885272, 9791149, 0095526, 4817515, 7881970 ####[facility] [address] [place] [address] Capillary Glucose POCon Glucose [Mass/Vol] 233 mg/dL High 55-99 [facility] Comment on above: Performed By: #### 2 50998869 ####[facility] [address] [place] [address] Glucose [Mass/Vol] 144 mg/dL High 55-99 [facility] Comment on above: Result Comment: Ambrocio vargas RN/ Performed By: #### 2 97862879 ####[address] [address] Glucose [Mass/Vol] 202 mg/dL High 55-99 [facility] Comment on above: Result Comment: Ambrocio vargas RN/ Performed By: #### 2 45625982 ####[address] [address] Glucose [Mass/Vol] 180 mg/dL High 55-99 [facility] Comment on above: Result Comment: Ambrocio vargas RN/ Performed By: #### 2 97623342 ####[facility] [address] [place] [address] Interdisciplinary Note - Paresh e Manageron 07-14-2022 Interdisciplinary Note - Boring Mill Set Up Operator Vertical Normal [facility] Comment on above: Result Comment: Elec tronically Signed By: Sarah Tena\Date and Time Signed: 07/14/22 13:10 EDT Lactic Acidon 07-14-2022 Lactate [Mass/Vol] 1.1 mmol/L Normal 0.5-2.2 [facility] Comment on above: Performed By: #### 1 2109505, 9565599, 4862133, 2944603, 3275883, 4484132 ####[facility] [address] [place] [address] Monitor Recordon 07-14-2022 Monitor Record [id number]#1. 00CD:127 Normal [facility] Monitor Record [id number]#1. 00CD:127 Normal [facility] Monitor Record [id number] 60 [id number]#1. 00CD:127 Normal [facility] Progress Note-Physicianon Progress Note-Physician Normal [facility] Comment on above: Result Comment: Elec tronically Signed By: Vijaya SANDOVAL\.br\Date and Time Signed: 07/14/22 13:12 EDT\.br\Electronically Co-Signed By: Fuentes Rodriguez MD\.br\Date and Time Co-Signed: 07/14/22 14:51 EDT eGFRon 07-14-2022 GFR/1.73 sq M.predicted among non-blacks MDRD (S/P/Bld) [Vol rate/Area] 8 mL/min/1.73 m2 Low >=59 [facility] Comment on above: Order Comment: Order added by Discern Expert. Result Comment: Oxygen Therapy Technician jm kidney disease could be indicated at eGFR's of less than 60 mL/min/1.73m2. Kidney failure is indicated at less than 15 mL/min/1.73m2. Performed By: #### 1 9267389, 9414872, 4294945, 4116056, 3776632, 7717464 ####[facility] [place] [address] BMPon 07-13-2022 Creatinine [Mass/Vol] 9.3 mg/dL Abnormal 0.5-1.3 [facility] Comment on above: Result Comment: Crit ical Result verified by repeat analysis\Critical Result S_CREA:9.30 Called to MARYURI MCKEON AT 3S by NEDA MACHUCA And Read Back For Confirmation at: 07/13/2022 06:50:42\Result S_CREA:9.30 Called to MARYURI MCKEON AT 3S by NEDA MACHUCA And Read Back For Confirmation at: 07/13/2022 06:50:42 Performed By: #### 1 8087684, 7159591, 6731724 ####[facility] [address] [place] [address] Anion gap [Moles/Vol] 16 mmol/L Normal 6-16 [facility] Comment on above: Performed By: #### 1 8648914, 7429470, 7876398 ####[facility] [address] [place] [address] Calcium [Mass/Vol] 8.9 mg/dL Normal 8.9-11.1 [facility] Comment on above: Performed By: #### 1 5803940, 7768257, 4391192 ####[facility] [address] [place] [address] Chloride [Moles/Vol] 101 mmol/L Normal 101-111 [facility] Comment on above: Performed By: #### 1 1319485, 5522830, 8506745 ####[facility] [address] [place] [place] [address] CO2 [Moles/Vol] 23 mmol/L Normal 21-31 [facility] Comment on above: Performed By: #### 1 2362139, 1624726, 3073809 ####[facility] [address] [place] [address] Glucose [Mass/Vol] 266 mg/dL High 55-199 [facility] Comment on above: Result Comment: If t his glucose result represents a fasting glucose, interpretation should refer to the following reference range: 55-99 mg/dL Performed By: #### 1 8231000, 8920104, 2886032 ####[facility] [address] [place] [address] Potassium [Moles/Vol] 3.5 mmol/L Normal 3.5-5.3 [facility] Comment on above: Performed By: #### 1 4072324, 5091764, 9864536 ####[facility] [address] [place] [address] Sodium [Moles/Vol] 136 mmol/L Normal 135-145 [facility] Comment on above: Performed By: #### 1 1481416, 7383529, 1097160 ####[facility] [address] [place] [address] Urea nitrogen [Mass/Vol] 31 mg/dL High 5-21 [facility] Comment on above: Performed By: #### 1 1514224, 0199467, 8181491 ####[facility] [address] [place] [address] Urea nitrogen/Creatinine [Mass ratio] 3 No Units Low 10-20 [facility] Comment on above: Performed By: #### 1 8790092, 7003382, 6259541 ####[facility] [address] [place] [address] CRPon 07-13-2022 CRP [Mass/Vol] 8.9 mg/dL High <=1.9 [facility] Comment on above: Performed By: #### 2 557658, 8393035, 0558160 ####[facility] [address] [place] [address] Capillary Glucose POCon Glucose [Mass/Vol] 256 mg/dL High 55-99 [facility] Comment on above: Result Comment: Ambrocio ELIAS Performed By: #### 2 11280851 ####[facility] [address] [place] [address] Glucose [Mass/Vol] 268 mg/dL High 55-99 [facility] Comment on above: Performed By: #### 2 [id number] ####[facility] [address] [place] [address] Glucose [Mass/Vol] 247 mg/dL High 55-99 [facility] Comment on above: Result Comment: Ambrocio vargas RN/ Performed By: #### 2 57561459 ####[facility] [address] [place] [address] Glucose [Mass/Vol] 279 mg/dL High 55-99 [facility] Comment on above: Result Comment: Ambrocio vargas RN/ Performed By: #### 2 [id number] ####[facility] [address] [place] [address] Consultation Noteon 07-14-19 Consultation Note Normal [facility] Comment on above: Result Comment: Elec tronically Signed By: Cristino Walker MD\.br\Date and Time Signed: 07/13/22 14:44 EDT Consultation Note Normal [facility] Comment on above: Result Comment: Elec tronically Signed By: Alfredo Acosta M.D\.br\Date and Time Signed: 07/13/22 09:50 EDT Interdisciplinary Note - Paresh e Manageron 07-13-2022 Interdisciplinary Note - Boring Mill Set Up Operator Vertical Normal [facility] Comment on above: Result Comment: Elec tronically Signed By: Obie TORREZ, Alaina\.br\Date and Time Signed: 07/13/22 11:59 EDT Interdisciplinary Note - Bang singon 07-13-2022 Interdisciplinary Note - Nursing Normal [facility] Lactic Acidon 07-13-2022 Lactate [Mass/Vol] 2.3 mmol/L High 0.5-2.2 [facility] Comment on above: Order Comment: Order added by EKS Rule. (FT_LACTIC_ACID_REFLEX) Adds reflex Lactic Acid 4 hours after initial if result is greater than or equal to 2.0. Performed By: #### 2 854085 ####[facility] [address] [place] [address] Lactate [Mass/Vol] 5.9 mmol/L Abnormal 0.5-2.2 [facility] Comment on above: Result Comment: Crit ical Result verified by repeat analysis\Critical Result S_LAC:5.9Called to STEVE ESTRELLA AT 3S by NEDA MACHUCA And Read Back For Confirmation at: 07/13/2022 12:52:22 Performed By: #### 2 091515, 8462265, 0783481 ####[facility] [address] [place] [address] Monitor Recordon 07-13-2022 Monitor Record [id number]#1. 00CD:127 Normal [facility] Monitor Record [id number]#1. 00CD:127 Normal [facility] Monitor Record [id number]#1. 00CD:127 Normal [facility] Progress Note - Pharmacyon 0 07-13-2022 Progress Note - Pharmacy Normal [facility] Progress Note-Nurseon 2022 Progress Note-Nurse Tx tolerated well, hypotension at beginning of Tx, no other significant issues. 0L removed Pre wt 94 Post wt 95 Normal [facility] Progress Note-Physicianon Progress Note-Physician Normal [facility] Comment on above: Result Comment: Elec tronically Signed By: Nathalie HAAS\.br\Date and Time Signed: 07/13/22 13:50 EDT\.br\Electronically Co-Signed By: Nathalie HAAS\.br\Date and Time Co-Signed: 07/13/22 13:56 EDT\.br\Electronically Co-Signed By: Michael FISH, Fuentes Lemons\.br\Date and Time Co-Signed: 07/13/22 15:20 EDT US Extremity Non-Vascular Li mited Lefton 07-13-2022 US Extremity Non-Vascular Limited Left Normal [facility] Vanco Troughon 07-13-2022 VANCOMYCIN 50 microgram/mL Abnormal 10-20 [facility] Comment on above: Result Comment: Crit ical Result verified by repeat analysis\Critical Result S_VANC_T:50.0 Called to MARYURI MCKEON AT 3S by NEDA MACHUCA And Read Back For Confirmation at: 07/13/2022 06:49:48 Performed By: #### 1 [id number], 4623994, 0649136 ####[facility] [address] [place] [address] WBCon 07-13-2022 WBC corrected for nucl RBC Auto (Bld) [#/Vol] 23.8 E9/L High 4.0-11.0 [facility] Comment on above: Performed By: #### 2 616788, 3122326, 1332352 ####[facility] [address] [place] [address] XR Chest 2 Viewson 3 XR Chest 2 Views Normal [facility] eGFRon 07-13-2022 GFR/1.73 sq M.predicted among non-blacks MDRD (S/P/Bld) [Vol rate/Area] 6 mL/min/1.73 m2 Low >=59 [facility] Comment on above: Order Comment: Order added by Discern Expert. Result Comment: Oxygen Therapy Technician jm kidney disease could be indicated at eGFR's of less than 60 mL/min/1.73m2. Kidney failure is indicated at less than 15 mL/min/1.73m2. Performed By: #### 1 8203952, 0174876, 3661539 ####[facility] [address] [place] [address] Auto Diffon 07-12-2022 Basophils/100 WBC (Bld) 0.8 % Normal 0.0-2.0 [facility] Comment on above: Order Comment: Order Added by Cayla Expert. Performed By: #### 2 303205, 4731312, 4129358, 20264143 ####[facility] [address] [place] [address] Basophils/Leukocytes Auto (Bld) [Pure # fraction] 0.1 E9/L Normal 0.0-0.2 [facility] Comment on above: Order Comment: Order Added by Cayla Expert. Performed By: #### 2 149781, 7978099, 1519356, 63330162 ####[facility] [address] [place] [address] Eosinophils/100 WBC (Bld) 1.5 % Normal 0.0-8.0 [facility] Comment on above: Order Comment: Order Added by Cayla Expert. Performed By: #### 2 862849, 0131839, 7526150, 84423078 ####[facility] [address] [place] [address] Eosinophils/Leukocyt es Auto (Bld) [Pure # fraction] 0.1 E9/L Normal 0.0-0.5 [facility] Comment on above: Order Comment: Order Added by Cayla Expert. Performed By: #### 2 345010, 5826409, 0584958, 19824223 ####[address] [address] Lymphocytes/100 WBC (Bld) 11.0 % Low 14.0-50.0 [facility] Comment on above: Order Comment: Order Added by Cayla Expert. Performed By: #### 2 892571, 2384160, 2586603, 29246634 ####[address] [address] Lymphocytes/Leukocyt es Auto (Bld) [Pure # fraction] 0.9 E9/L Low 1.0-4.0 [facility] Comment on above: Order Comment: Order Added by Cayla Expert. Performed By: #### 2 871269, 9416698, 2630448, 11490010 ####[address] [address] Monocytes/100 WBC (Bld) 13.7 % Normal 4.0-14.0 [facility] Comment on above: Order Comment: Order Added by Cayla Expert. Performed By: #### 2 508322, 1068953, 2025620, 71453296 ####[address] [address] Monocytes/Leukocytes Auto (Bld) [Pure # fraction] 1.1 E9/L High 0.2-1.0 [facility] Comment on above: Order Comment: Order Added by Cayla Expert. Performed By: #### 2 535168, 1029815, 8306257, 09176157 ####[place] [address] [place] [address] Neutrophils/100 WBC (Bld) 73.0 % Normal 36.0-75.0 [facility] Comment on above: Order Comment: Order Added by Cayla Expert. Performed By: #### 2 076198, 7367841, 3823344, 49237765 ####[place] [place] [address] Neutrophils/Leukocyt es Auto (Bld) [Pure # fraction] 5.9 E9/L Normal 2.0-7.5 [facility] Comment on above: Order Comment: Order Added by Discern Expert. Performed By: #### 2 219661, 5178218, 6686960, 31370419 ####[facility] [address] [place] [address] BMPon 07-12-2022 Creatinine [Mass/Vol] 7.6 mg/dL Abnormal 0.5-1.3 [facility] Comment on above: Result Comment: Crit ical Result verified by previous result\Critical Result verified by repeat analysis\Critical Result S_CREA:7.60 Called to JOHANNE BUNCH AT 3N by NOEL ORNELAS And Read Back For Confirmation at: 07/12/2022 16:57:45 Performed By: #### 2 794100, 1412321, 4582970, 95295487 ####[facility] [address] [place] [address] Urea nitrogen [Mass/Vol] 26 mg/dL High 5-21 [facility] Comment on above: Performed By: #### 2 140749, 7543241, 9383453, 31293393 ####[facility] [address] [place] [address] Urea nitrogen/Creatinine [Mass ratio] 3 No Units Low 10-20 [facility] Comment on above: Performed By: #### 2 878434, 8576080, 3317527, 40811677 ####[facility] [address] [place] [address] Anion gap [Moles/Vol] 15 mmol/L Normal 6-16 [facility] Comment on above: Performed By: #### 2 827608, 1189125, 0863120, 18763364 ####[facility] [address] [place] [address] Calcium [Mass/Vol] 9.2 mg/dL Normal 8.9-11.1 [facility] Comment on above: Performed By: #### 2 973041, 1046700, 3288578, 20728326 ####[facility] [address] [place] [address] Chloride [Moles/Vol] 98 mmol/L Low 101-111 [facility] Comment on above: Performed By: #### 2 968033, 7782627, 4747244, 85968700 ####[facility] [address] [place] [address] CO2 [Moles/Vol] 25 mmol/L Normal 21-31 [facility] Comment on above: Performed By: #### 2 561452, 6840806, 4033615, 28160549 ####[facility] [address] [place] [address] Glucose [Mass/Vol] 203 mg/dL High 55-199 [facility] Comment on above: Result Comment: If t his glucose result represents a fasting glucose, interpretation should refer to the following reference range: 55-99 mg/dL Performed By: #### 2 662719, 0940528, 7092333, 44159173 ####[facility] [address] [place] [address] Potassium [Moles/Vol] 4.2 mmol/L Normal 3.5-5.3 [facility] Comment on above: Performed By: #### 2 020428, 3937719, 2416383, 75416097 ####[facility] [address] [place] [address] Sodium [Moles/Vol] 134 mmol/L Low 135-145 [facility] Comment on above: Performed By: #### 2 984943, 0649964, 1622482, 09770071 ####[facility] [address] [place] [address] CBC w/ Auto Diffon 3 Erythrocyte distribution width (RBC) [Ratio] 16.8 % High 10.9-14.2 [facility] Comment on above: Performed By: #### 2 858728, 4595759, 2803579, 64064006 ####[facility] [address] [place] [address] Hematocrit (Bld) [Volume fraction] 28.7 % Low 37.7-49.0 [facility] Comment on above: Performed By: #### 2 059754, 0550048, 9083185, 02119575 ####[facility] [address] [place] [address] Hemoglobin (Bld) [Mass/Vol] 9.5 g/dL Low 13.5-17.5 [facility] Comment on above: Performed By: #### 2 366969, 0676319, 7989961, 92880961 ####[address] [address] MCH (RBC) [Entitic mass] 29.6 pg Normal 27.0-34.0 [facility] Comment on above: Performed By: #### 2 688912, 3493751, 4049051, 80592349 ####[place] [address] MCHC (RBC) [Mass/Vol] 33.1 g/dL Normal 31.4-36.0 [facility] Comment on above: Performed By: #### 2 412812, 5436297, 1711316, 79403134 ####[address] [address] MCV (RBC) [Entitic vol] 89.5 fL Normal 80.0-100.0 [facility] Comment on above: Performed By: #### 2 212334, 9847687, 7843319, 67347018 ####[address] [address] Platelet mean volume (Bld) [Entitic vol] 7.4 fL Normal 6.4-10.8 [facility] Comment on above: Performed By: #### 2 843461, 5793292, 5239949, 42994223 ####[address] [address] Platelets (Bld) [#/Vol] 284.0 E9/L Normal 150.0-500.0 [facility] Comment on above: Performed By: #### 2 206399, 0125153, 3655890, 75992645 ####[facility] [address] [place] [address] RBC (Bld) [#/Vol] 3.2 E12/L Low 4.3-5.9 [facility] Comment on above: Performed By: #### 2 063028, 6630233, 5210889, 56994577 ####[facility] [address] [place] [address] WBC corrected for nucl RBC Auto (Bld) [#/Vol] 8.1 E9/L Normal 4.0-11.0 [facility] Comment on above: Performed By: #### 2 734485, 7419467, 2381524, 63762170 ####[facility] [address] [place] [address] Capillary Glucose POCon Glucose [Mass/Vol] 287 mg/dL High 55-99 [facility] Comment on above: Result Comment: Ambrocio ELIAS Performed By: #### 2 51896971 ####[address] [address] Glucose [Mass/Vol] 191 mg/dL High 55-99 [facility] Comment on above: Result Comment: Ambrocio ELIAS Performed By: #### 2 67872724 ####[address] [address] Consent for Treatmenton Consent for Treatment [id number]#1.0 0CD:127 Normal [facility] Consent for Treatment [id number]#1.0 0CD:127 Normal [facility] Heart and Vascular Office/Cl inic Noteon 07-12-2022 Heart and Vascular Office/Clinic Note Normal [facility] Comment on above: Result Comment: Elec tronically Signed By: Dorian FISH, Evelyn FElodia\.br\Date and Time Signed: 07/12/22 13:58 EDT Progress Note - Pharmacyon 0 07-12-2022 Progress Note - Pharmacy Normal [facility] eGFRon 07-12-2022 GFR/1.73 sq M.predicted among non-blacks MDRD (S/P/Bld) [Vol rate/Area] 7 mL/min/1.73 m2 Low >=59 [facility] Comment on above: Order Comment: Order added by Discern Expert. Result Comment: Oxygen Therapy Technician jm kidney disease could be indicated at eGFR's of less than 60 mL/min/1.73m2. Kidney failure is indicated at less than 15 mL/min/1.73m2. Performed By: #### 2 716537, 0012700, 5469751, 64551936 ####[facility] [address] [place] [address] ED Note-Physicianon 07-12-19 ED Note-Physician Normal [facility] Comment on above: Result Comment: Elec tronically Signed By: Zack Domingo PA-C\.br\Date and Time Signed: 07/09/22 20:28 EDT\.br\Electronically Co-Signed By: Adam Weinberg M.D.\.br\Date and Time Co-Signed: 07/11/22 07:12 EDT US AV Fistula/Mobile 2022 US AV Fistula/Graft Normal [facility] US UE Venous Duplex Lefton 0 07-10-2022 US UE Venous Duplex Left Normal [facility] Consent for Treatmenton 06-12 Consent for Treatment [id number]#1.0 0CD:127 Normal [facility] Discharge Instructionson Discharge Instructions [id number]#1. 00CD:127 Normal [facility] ED Clinical Summaryon 2022 ED Clinical Summary Normal [facility] ED Patient Education Noteon 07-09-2022 ED Patient Education Note Normal [facility] ED Patient Summaryon 023 ED Patient Summary Normal [facility] Cardiovascular Reporton 06-12 Cardiovascular Report [id number]#1. 00CD:127 Normal [facility] Consent for Procedure/Surger yon 07-04-2022 Consent for Procedure/Surgery [id number]#1. 00CD:127 Normal [facility] Consultation Noteon 07-05-19 Consultation Note Normal [facility] Comment on above: Result Comment: Elec tronically Signed By: Brian SHIN, Sarah Ugalde\.br\Date and Time Signed: 07/03/22 21:20 EDT\.br\Electronically Co-Signed By: Jatin Fournier MD\.br\Date and Time Co-Signed: 07/04/22 12:37 EDT Discharge Instructionson Discharge Instructions [id number]#1. 00CD:127 Normal [facility] Progress Note-Nurseon 2022 Progress Note-Nurse [id number]#1. 00CD:127 Normal [facility] Auto Diffon 07-03-2022 Basophils/100 WBC (Bld) 0.3 % Normal 0.0-2.0 [facility] Comment on above: Order Comment: Order Added by Discern Expert. Performed By: #### 1 6790204, 0425798, 6633271, 6438454 ####[facility] [address] [place] [address] Basophils/Leukocytes Auto (Bld) [Pure # fraction] 0.0 E9/L Normal 0.0-0.2 [facility] Comment on above: Order Comment: Order Added by Discern Expert. Performed By: #### 1 3884448, 0620865, 1835063, 6383332 ####[facility] [address] [place] [address] Eosinophils/100 WBC (Bld) 1.0 % Normal 0.0-8.0 [facility] Comment on above: Order Comment: Order Added by Discern Expert. Performed By: #### 1 2537974, 7546410, 3404416, 9893873 ####[facility] [address] [place] [address] Eosinophils/Leukocyt es Auto (Bld) [Pure # fraction] 0.1 E9/L Normal 0.0-0.5 [facility] Comment on above: Order Comment: Order Added by Discern Expert. Performed By: #### 1 4853253, 5597802, 6178837, 0654438 ####[place] [place] [address] Lymphocytes/100 WBC (Bld) 9.1 % Low 14.0-50.0 [facility] Comment on above: Order Comment: Order Added by Cyala Expert. Performed By: #### 1 6841761, 6698685, 6726947, 3816954 ####[address] [address] Lymphocytes/Leukocyt es Auto (Bld) [Pure # fraction] 0.6 E9/L Low 1.0-4.0 [facility] Comment on above: Order Comment: Order Added by Cayla Expert. Performed By: #### 1 3723126, 6008627, 0151160, 9457848 ####[address] [address] Monocytes/100 WBC (Bld) 16.7 % High 4.0-14.0 [facility] Comment on above: Order Comment: Order Added by Discern Expert. Performed By: #### 1 3080922, 8887012, 1205259, 4138760 ####[facility] [address] [place] [address] Monocytes/Leukocytes Auto (Bld) [Pure # fraction] 1.2 E9/L High 0.2-1.0 [facility] Comment on above: Order Comment: Order Added by Cayla Expert. Performed By: #### 1 0006808, 9406998, 4601012, 5041387 ####[facility] [address] [place] [address] Neutrophils/100 WBC (Bld) 72.9 % Normal 36.0-75.0 [facility] Comment on above: Order Comment: Order Added by Discern Expert. Performed By: #### 1 5476218, 6288706, 5756011, 9852598 ####[facility] [address] [place] [address] Neutrophils/Leukocyt es Auto (Bld) [Pure # fraction] 5.2 E9/L Normal 2.0-7.5 [facility] Comment on above: Order Comment: Order Added by Discern Expert. Performed By: #### 1 1634787, 4128350, 5626268, 8249598 ####[facility] [address] [place] [address] BMPon 07-03-2022 Anion gap [Moles/Vol] 19 mmol/L High 6-16 [facility] Comment on above: Performed By: #### 1 5789065, 9537388, 3281243, 8043233 ####[facility] [address] [place] [address] Calcium [Mass/Vol] 8.3 mg/dL Low 8.9-11.1 [facility] Comment on above: Performed By: #### 1 9645072, 1140274, 3353297, 3816163 ####[facility] [address] [place] [address] Chloride [Moles/Vol] 98 mmol/L Low 101-111 [facility] Comment on above: Performed By: #### 1 3945899, 3710238, 2675857, 4973294 ####[facility] [address] [place] [address] CO2 [Moles/Vol] 23 mmol/L Normal 21-31 [facility] Comment on above: Performed By: #### 1 2979881, 4258478, 5925595, 3494626 ####[facility] [address] [place] [address] Creatinine [Mass/Vol] 17.8 mg/dL Abnormal 0.5-1.3 [facility] Comment on above: Result Comment: Crit ical Result S_CREA:17.80 Called to BRADY SILVERMAN AT 3N by CATHY LERNER And Read Back For Confirmation at: 07/03/2022 07:23:33\Critical Result verified by previous result Performed By: #### 1 3049714, 9120697, 9514572, 9096966 ####[facility] [address] [place] [address] Glucose [Mass/Vol] 226 mg/dL High 55-199 [facility] Comment on above: Result Comment: If t his glucose result represents a fasting glucose, interpretation should refer to the following reference range: 55-99 mg/dL Performed By: #### 1 8537153, 2387945, 3865621, 0522144 ####[facility] [address] [facility] [place] [address] Potassium [Moles/Vol] 4.8 mmol/L Normal 3.5-5.3 [facility] Comment on above: Performed By: #### 1 1009296, 1830742, 0793708, 1556463 ####[facility] [address] [place] [address] Sodium [Moles/Vol] 135 mmol/L Normal 135-145 [facility] Comment on above: Performed By: #### 1 6377580, 0711547, 0299882, 8702465 ####[facility] [address] [facility] [place] [address] Urea nitrogen [Mass/Vol] 88 mg/dL Abnormal 5-21 [facility] Comment on above: Result Comment: Crit ical Result S_BUN:88 Called to BRADY SILVERMAN AT 3N by CATHY LERNER And Read Back For Confirmation at: 07/03/2022 07:23:33\Critical Result verified by previous result Performed By: #### 1 7598571, 1746903, 5643255, 9851721 ####[facility] [address] [place] [address] Urea nitrogen/Creatinine [Mass ratio] 5 No Units Low 10-20 [facility] Comment on above: Performed By: #### 1 6043269, 3222012, 7212090, 1993508 ####[facility] [address] [place] [address] CBC w/ Auto Diffon Erythrocyte distribution width (RBC) [Ratio] 17.0 % High 10.9-14.2 [facility] Comment on above: Performed By: #### 1 9715661, 1543423, 0482646, 4280787 ####[place] [place] [address] Hematocrit (Bld) [Volume fraction] 26.8 % Low 37.7-49.0 [facility] Comment on above: Performed By: #### 1 7766021, 7207394, 8286338, 9704554 ####[place] [address] [place], [place] [address] Hemoglobin (Bld) [Mass/Vol] 9.2 g/dL Low 13.5-17.5 [facility] Comment on above: Performed By: #### 1 4804242, 5994227, 0647504, 1577232 ####[facility] [address] [place] [address] MCH (RBC) [Entitic mass] 30.4 pg Normal 27.0-34.0 [facility] Comment on above: Performed By: #### 1 2096838, 6638345, 7801815, 4894495 ####[address] [place] [address] MCHC (RBC) [Mass/Vol] 34.3 g/dL Normal 31.4-36.0 [facility] Comment on above: Performed By: #### 1 6029043, 5882446, 5509242, 0395600 ####[address] [place] [address] MCV (RBC) [Entitic vol] 88.5 fL Normal 80.0-100.0 [facility] Comment on above: Performed By: #### 1 5596914, 3154702, 3499426, 2561627 ####[address] Platelet mean volume (Bld) [Entitic vol] 8.4 fL Normal 6.4-10.8 [facility] Comment on above: Performed By: #### 1 6401102, 2414795, 5218670, 2445970 ####[facility] [address] [place] [address] Platelets (Bld) [#/Vol] 155.0 E9/L Normal 150.0-500.0 [facility] Comment on above: Performed By: #### 1 3614942, 1931558, 9444286, 9653913 ####[address] [place] [address] RBC (Bld) [#/Vol] 3.0 E12/L Low 4.3-5.9 [facility] Comment on above: Performed By: #### 1 1784154, 3735245, 2895199, 1584503 ####[address] [place] [address] WBC corrected for nucl RBC Auto (Bld) [#/Vol] 7.1 E9/L Normal 4.0-11.0 [facility] Comment on above: Result Comment: Slid e reviewed by BC. Performed By: #### 1 6751024, 2001996, 6181931, 7448392 ####[facility] [address] [place] [address] Capillary Glucose POCon 06-12 Glucose [Mass/Vol] 146 mg/dL High 55-99 [facility] Comment on above: Result Comment: Ambrocio ELIAS Performed By: #### 2 [id number] ####[facility] [address] [place] [address] Glucose [Mass/Vol] 158 mg/dL High 55-99 [facility] Comment on above: Result Comment: Ambrocio ELIAS Performed By: #### 2 [id number] ####[facility] [address] [place] [address] Cardiovascular Reporton 06-12 Cardiovascular Report [id number]#2. 00CD:127 [facility] Discharge Note-Nursingon Discharge Note-Nursing [facility] Inpatient Clinical Summaryon 07-03-2022 Inpatient Clinical Summary [facility] Inpatient Patient Summaryon 07-03-2022 Inpatient Patient Summary [facility] Interdisciplinary Note - Paresh e Manageron 07-03-2022 Interdisciplinary Note - Boring Mill Set Up Operator Vertical Pt is asleep in bed, receiving dialysis at this time. Pt is from home with , previously rounded with Dr. Arauz and plan to DC home after dialysis. contact information provided and white board updated. CRM following. [facility] Comment on above: Result Comment: Elec tronically Signed By: Alaina Ragland RN\.br\Date and Time Signed: 07/03/22 10:14 EDT Monitor Recordon 07-03-2022 Monitor Record [id number]#1. 00CD:127 [facility] Monitor Record [id number]#1. 00CD:127 [facility] Monitor Record [id number]#1. 00CD:127 [facility] Monitor Record [id number]#1. 00CD:127 [facility] Patient Education - Texton 0 07-03-2022 Patient Education - Text [facility] Progress Note-Physicianon Progress Note-Physician [facility] Comment on above: Result Comment: Elec tronically Signed By: Pedro ARAUZ MD\.br\Date and Time Signed: 07/03/22 08:34 EDT eGFRon 07-03-2022 GFR/1.73 sq M.predicted among non-blacks MDRD (S/P/Bld) [Vol rate/Area] 3 mL/min/1.73 m2 Low >=59 [facility] Comment on above: Order Comment: Order added by Discern Expert. Result Comment: Oxygen Therapy Technician jm kidney disease could be indicated at eGFR's of less than 60 mL/min/1.73m2. Kidney failure is indicated at less than 15 mL/min/1.73m2. Performed By: #### 1 0529326, 3572350, 2512555, 9775699 ####[facility] [address] [place] [address] BMPon 07-02-2022 Creatinine [Mass/Vol] 16.8 mg/dL Abnormal 0.5-1.3 [facility] Comment on above: Result Comment: Crit ical Result S_CREA:16.80 Called to LESTER MELTON AT [facility] by CATHY LERNER And Read Back For Confirmation at: 07/02/2022 13:30:56\Critical Result verified by repeat analysis Performed By: #### 1 [id number], 1533005 ####[facility] [address] [place] [address] Urea nitrogen [Mass/Vol] 78 mg/dL High 5-21 [facility] Comment on above: Performed By: #### 1 2639110, 1324376 ####[facility] [address] [place] [address] Urea nitrogen/Creatinine [Mass ratio] 5 No Units Low 10-20 [facility] Comment on above: Performed By: #### 1 4237043, 1614456 ####[facility] [address] [place] [address] Anion gap [Moles/Vol] 22 mmol/L High 6-16 [facility] Comment on above: Performed By: #### 1 1056909, 6771600 ####[facility] [address] [place] [address] Calcium [Mass/Vol] 8.9 mg/dL Normal 8.9-11.1 [facility] Comment on above: Performed By: #### 1 1795528, 2980908 ####[facility] [address] [place] [address] Chloride [Moles/Vol] 96 mmol/L Low 101-111 [facility] Comment on above: Performed By: #### 1 3442400, 1185094 ####[facility] [address] [place] [address] CO2 [Moles/Vol] 21 mmol/L Normal 21-31 [facility] Comment on above: Performed By: #### 1 0021818, 5887175 ####[address] [place] [address] Glucose [Mass/Vol] 229 mg/dL High 55-199 [facility] Comment on above: Result Comment: If t his glucose result represents a fasting glucose, interpretation should refer to the following reference range: 55-99 mg/dL Performed By: #### 1 0672404, 8371314 ####[address] [address] Potassium [Moles/Vol] 4.9 mmol/L Normal 3.5-5.3 [facility] Comment on above: Performed By: #### 1 9860105, 4328580 ####[address] [address] Sodium [Moles/Vol] 134 mmol/L Low 135-145 [facility] Comment on above: Performed By: #### 1 0093850, 2465443 ####[address] [address] Capillary Glucose POCon 06-12 Glucose [Mass/Vol] 253 mg/dL High 55-99 [facility] Comment on above: Performed By: #### 2 10644242 ####[address] [address] Consent for Treatmenton 06-12 Consent for Treatment [id number]#1.0 0CD:127 Normal [facility] Interdisciplinary Note - Bang singon 07-02-2022 Interdisciplinary Note - Nursing Normal [facility] Monitor Recordon 07-02-2022 Monitor Record [id number]#1. 00CD:127 Normal [facility] Operative Reporton 3 Operative Report Normal [facility] Comment on above: Result Comment: Elec tronically Signed By: Dorian FISH, Evelyn Lopez\.br\Date and Time Signed: 07/02/22 15:32 EDT eGFRon 07-02-2022 GFR/1.73 sq M.predicted among non-blacks MDRD (S/P/Bld) [Vol rate/Area] 3 mL/min/1.73 m2 Low >=59 [facility] Comment on above: Order Comment: Order added by Discern Expert. Result Comment: Oxygen Therapy Technician jm kidney disease could be indicated at eGFR's of less than 60 mL/min/1.73m2. Kidney failure is indicated at less than 15 mL/min/1.73m2. Performed By: #### 1 4097419, 8178234 ####[facility] [address] [place] [address] Discharge Instructionson Discharge Instructions [id number]#1.0 0CD:127 Normal [facility] BMPon 06-29-2022 Creatinine [Mass/Vol] 10.3 mg/dL Abnormal 0.5-1.3 [facility] Comment on above: Result Comment: Crit ical Result verified by repeat analysis\Critical Result S_CREA:10.30 Called to [facility]INGO LANGE AT [facility] by NOEL ORNELAS And Read Back For Confirmation at: 06/29/2022 17:06:57 Performed By: #### 2 047673, [id number] ####[facility] [address] [place] [address] Urea nitrogen [Mass/Vol] 41 mg/dL High 5-21 [facility] Comment on above: Performed By: #### 2 134451, 33332404 ####[facility] [address] [place] [address] Urea nitrogen/Creatinine [Mass ratio] 4 No Units Low 10-20 [facility] Comment on above: Performed By: #### 2 076787, 93583849 ####[facility] [address] [place] [address] Anion gap [Moles/Vol] 16 mmol/L Normal 6-16 [facility] Comment on above: Performed By: #### 2 043698, 23971035 ####[facility] [address] [facility] [place] [address] Calcium [Mass/Vol] 9.6 mg/dL Normal 8.9-11.1 [facility] Comment on above: Performed By: #### 2 521858, 37008954 ####[facility] [address] [place] [address] Chloride [Moles/Vol] 98 mmol/L Low 101-111 [facility] Comment on above: Performed By: #### 2 582158, 02106645 ####[facility] [address] [facility] [place] [address] CO2 [Moles/Vol] 25 mmol/L Normal 21-31 [facility] Comment on above: Performed By: #### 2 391057, 40457197 ####[facility] [address] [facility] [place] [address] Glucose [Mass/Vol] 159 mg/dL Normal 55-199 [facility] Comment on above: Result Comment: If t his glucose result represents a fasting glucose, interpretation should refer to the following reference range: 55-99 mg/dL Performed By: #### 2 259172, 03742393 ####[facility] [address] [facility] [place] [address] Potassium [Moles/Vol] 4.3 mmol/L Normal 3.5-5.3 [facility] Comment on above: Performed By: #### 2 930530, 03859650 ####[facility] [address] [facility] [place] [address] Sodium [Moles/Vol] 135 mmol/L Normal 135-145 [facility] Comment on above: Performed By: #### 2 264137, 00506347 ####[facility] [address] [place] [facility] [place] [address] Consent for Treatmenton 06-11 Consent for Treatment [id number]#1.0 0CD:127 Normal [facility] ED Clinical Summaryon 2022 ED Clinical Summary Normal [facility] ED Note-Physicianon 06-30-19 ED Note-Physician Normal [facility] Comment on above: Result Comment: Elec tronically Signed By: Reji Azar DO.br\Date and Time Signed: 06/29/22 19:10 EDT ED Patient Education Noteon 06-29-2022 ED Patient Education Note Normal [facility] ED Patient Summaryon 023 ED Patient Summary Normal [facility] US AV Fistula/Mobile 2022 US AV Fistula/Graft Normal [facility] eGFRon 06-29-2022 GFR/1.73 sq M.predicted among non-blacks MDRD (S/P/Bld) [Vol rate/Area] 5 mL/min/1.73 m2 Low >=59 [facility] Comment on above: Order Comment: Order added by Discern Expert. Result Comment: Oxygen Therapy Technician jm kidney disease could be indicated at eGFR's of less than 60 mL/min/1.73m2. Kidney failure is indicated at less than 15 mL/min/1.73m2. Performed By: #### 2 527005, [id number] ####[facility] [address] [place] [address] Progress Noteson 05-17-2022 Movie Shot Cameraman Authentication Interface Message Text EMERGENCY TRIAGE, TREAT AND TRANSPORT (ET3) DOCUMENTATION OF TELEHEALTH VISIT Date / Time: 05/16/20221754 Name: Dedrick Murphy : 1955 SSN: (Not on file) EMS Agency: [facility] [] Verbal consent obtained [x] Implied consent - patient with potential emergency medical condition requiring assessment of capacity to refuse treatment and/or transport VITAL SIGNS: see flowsheet documentation Reason for Telehealth Visit: Chief Complaint Patient presents with Fainting History of Present Illness: 66 yo male past medical history of end-stage renal disease on hemodialysis Saturday most recent hemodialysis today, hypertension and coronary artery disease had returned from hemodialysis session and had a syncopal episode at home. Patient did not have any preceding chest pain, palpitations or shortness of breath. Patient notes that he is asymptomatic currently. His is present states that he has a history of having too much fluid taken off and feeling weak after the hemodialysis dialysis session. He has had few remote episodes of similar syncope episodes. Of note patient was diagnosed with COVID last week and had a course of Paxlowvid completed Pt has a history of remote DVT not on anticoagulation. He has no current unilateral leg swelling pain or shortness of breath. Additional pertinent PMHx, SocHx, FamHx: PMH as above Meds no AC Social: Lives with Review of Systems: Denies the following: fever, chills, cough, chest pain, abdominal pain nausea vomiting diarrhea. Exam: General: Awake, no distress ENT: normocephalic, atraumatic Pulmonary: No respiratory distress Cardiovascular: Well perfused Neurologic: Oriented to person, place, time and events. Moving all extremities equally. Psychiatric: Appropriate. Good insight and judgement. Medical Decision Makin-year-old male returning from his regularly scheduled hemodialysis session had an unprovoked episode of syncope. He did not have any tongue biting, incontinence or signs of seizure. He recovered spontaneously after several minutes. EMS was called for assessment. He has a normal blood glucose 103. EKG was performed demonstrating a normal sinus rhythm without any ST elevation. Patient notes these asymptomatic. I had an informed discussion with him regarding his ongoing risk factors and concern for more serious etiology of syncope such as pulmonary embolism, coronary artery disease or arrhythmia. Patient was awake and alert and expressed understanding of these concerns. After informed discussion with the patient and his they were comfortable and preferred continued home observation and declined EMS transportation to the emergency department. We discussed the potential risks and benefits of this. Call 911/go to ED precautions were reviewed. Disposition Supported by Telehealth Assessment: ET3 transport decisions: Refused transport EMS Disposition Reported: Same ET3 Encounter Completed by: DO Landry Yan [employer] SYMPTOMATIC COVID-19 ANTIGEN on 05-09-2022 EUA Statement SEE BELOW Normal [facility] Comment on above: Result Comment: This test has not been FDA cleared or approved, but has been authorized by the FDA under an Emergency Use Authorization (EUA) for use by authorized laboratories certified under CLIA that meet the requirements to perform moderate or high complexity testing. This test has been authorized only for the detection of proteins from SARS-CoV-2, not for any other viruses or pathogens. The emergency use of this test is authorized for the duration of the declaration that circumstances exist justifying the authorization of emergency use of in vitro diagnostic tests for detection and/or diagnosis of Covid-19 under section 564(b)(1) of the Act, 21 U.S.C. 360bbb-3(b)(1), unless the declaration is terminated or authorization is revoked sooner. Performed By: #### C VDAGS #### [facility] [address] [place] [address] Dr. Radha Edward SARS-CoV-2 (COVID-19) RNA IRENE+probe Ql (Unsp spec) Positive Abnormal NEGATIVE [facility] Comment on above: Performed By: #### C VDAGS #### [facility] [address] [place] [address] Dr. Radha Edward Coding Summary.on 03-21-2022 Coding Summary. Normal [facility] Coding Summary. Normal [facility] Operative Reporton Operative Report Normal [facility] Comment on above: Result Comment: Elec tronically Signed By: Dorian FISH, Evelyn Lopez\.br\Date and Time Signed: 03/19/22 11:58 EST Coding Summary.on 03-16-2022 Coding Summary. Normal [facility] Consent for Procedure/Surger yon 03-16-2022 Consent for Procedure/Surgery [id number]. 00CD:127 Normal [facility] Discharge Instructionson Discharge Instructions [id number]#1. 00CD:127 Normal [facility] Auto Diffon 03-15-2022 Basophils/100 WBC (Bld) 1.2 % Normal 0.0-2.0 [facility] Comment on above: Order Comment: Order Added by Discern Expert. Performed By: #### 2 115669, 2550204, 2845985, 23740157 ####[facility] [address] [place] [address] Basophils/Leukocytes Auto (Bld) [Pure # fraction] 0.1 E9/L Normal 0.0-0.2 [facility] Comment on above: Order Comment: Order Added by Discern Expert. Performed By: #### 2 404586, 4217681, 7247328, 97804385 ####[address] [address] Eosinophils/100 WBC (Bld) 2.9 % Normal 0.0-8.0 [facility] Comment on above: Order Comment: Order Added by Discern Expert. Performed By: #### 2 220394, 4346245, 7051207, 78013060 ####[address] [address] Eosinophils/Leukocyt es Auto (Bld) [Pure # fraction] 0.2 E9/L Normal 0.0-0.5 [facility] Comment on above: Order Comment: Order Added by Discern Expert. Performed By: #### 2 912455, 9423470, 8424723, 30113368 ####[address] [address] Lymphocytes/100 WBC (Bld) 16.1 % Normal 14.0-50.0 [facility] Comment on above: Order Comment: Order Added by Discern Expert. Performed By: #### 2 594547, 3407636, 4337088, 34331226 ####[address] [address] Lymphocytes/Leukocyt es Auto (Bld) [Pure # fraction] 0.9 E9/L Low 1.0-4.0 [facility] Comment on above: Order Comment: Order Added by Discern Expert. Performed By: #### 2 810027, 0925139, 4570200, 69740794 ####[address] [place] [address] Monocytes/100 WBC (Bld) 15.1 % High 4.0-14.0 [facility] Comment on above: Order Comment: Order Added by Discern Expert. Performed By: #### 2 777364, 6582336, 0001907, 75408843 ####[facility] [address] [place] [address] Monocytes/Leukocytes Auto (Bld) [Pure # fraction] 0.8 E9/L Normal 0.2-1.0 [facility] Comment on above: Order Comment: Order Added by Discern Expert. Performed By: #### 2 582249, 9972049, 0588968, 31373651 ####[address] [place] [address] Neutrophils/100 WBC (Bld) 64.7 % Normal 36.0-75.0 [facility] Comment on above: Order Comment: Order Added by Discern Expert. Performed By: #### 2 103135, 3208038, 4207952, 02012752 ####[address] [place] [address] Neutrophils/Leukocyt es Auto (Bld) [Pure # fraction] 3.5 E9/L Normal 2.0-7.5 [facility] Comment on above: Order Comment: Order Added by Discern Expert. Performed By: #### 2 999887, 7716560, 6013784, 56983693 ####[facility] [address] [place] [address] BMPon 03-15-2022 Anion gap [Moles/Vol] 16 mmol/L Normal 6-16 [facility] Comment on above: Performed By: #### 2 840035, 3557701, 7780642, 66730863 ####[address] [place] [address] Calcium [Mass/Vol] 9.3 mg/dL Normal 8.9-11.1 [facility] Comment on above: Performed By: #### 2 024702, 2262697, 8799205, 44337716 ####[facility] [address] [place] [address] Chloride [Moles/Vol] 93 mmol/L Low 101-111 [facility] Comment on above: Performed By: #### 2 991210, 4225961, 2002043, 44201897 ####[facility] [address] [place] [address] CO2 [Moles/Vol] 28 mmol/L Normal 21-31 [facility] Comment on above: Performed By: #### 2 098882, 4702169, 3559070, 90872325 ####[facility] [address] [place] [address] Creatinine [Mass/Vol] 7.2 mg/dL High 0.5-1.3 [facility] Comment on above: Performed By: #### 2 159163, 1074312, 8715322, 61145367 ####[facility] [address] [place] [address] Glucose [Mass/Vol] 198 mg/dL Normal 55-199 [facility] Comment on above: Result Comment: If t his glucose result represents a fasting glucose, interpretation should refer to the following reference range: 55-99 mg/dL Performed By: #### 2 393418, 0574012, 4863567, 76578422 ####[facility] [address] [place] [address] Potassium [Moles/Vol] 3.6 mmol/L Normal 3.5-5.3 [facility] Comment on above: Performed By: #### 2 945877, 1843145, 0487774, 70643724 ####[facility] [address] [place] [address] Sodium [Moles/Vol] 133 mmol/L Low 135-145 [facility] Comment on above: Performed By: #### 2 909427, 6739754, 6897965, 84395102 ####[facility] [address] [place] [address] Urea nitrogen [Mass/Vol] 17 mg/dL Normal 5-21 [facility] Comment on above: Performed By: #### 2 568226, 9166883, 8624189, 02734557 ####[facility] [address] [place] [address] Urea nitrogen/Creatinine [Mass ratio] 2 No Units Low 10-20 [facility] Comment on above: Performed By: #### 2 749678, 8278975, 7890066, 03512673 ####[facility] [address] [place] [address] CBC w/ Auto Diffon 3 Erythrocyte distribution width (RBC) [Ratio] 15.4 % High 10.9-14.2 [facility] Comment on above: Performed By: #### 2 328260, 5156484, 8619365, 62747187 ####[address] [address] Hematocrit (Bld) [Volume fraction] 32.3 % Low 37.7-49.0 [facility] Comment on above: Performed By: #### 2 322350, 4828316, 7918541, 01213720 ####[facility] [address] [place] [address] Hemoglobin (Bld) [Mass/Vol] 10.9 g/dL Low 13.5-17.5 [facility] Comment on above: Performed By: #### 2 082629, 2880862, 8368674, 01285941 ####[facility] [address] [place] [address] MCH (RBC) [Entitic mass] 30.5 pg Normal 27.0-34.0 [facility] Comment on above: Performed By: #### 2 192817, 0713008, 7137891, 75344360 ####[facility] [address] [place] [address] MCHC (RBC) [Mass/Vol] 33.9 g/dL Normal 31.4-36.0 [facility] Comment on above: Performed By: #### 2 461827, 3594803, 2959671, 07185516 ####[facility] [address] [place] [address] MCV (RBC) [Entitic vol] 90.0 fL Normal 80.0-100.0 [facility] Comment on above: Performed By: #### 2 280461, 7338839, 9495172, 37827074 ####[facility] [address] [place] [address] Platelet mean volume (Bld) [Entitic vol] 8.5 fL Normal 6.4-10.8 [facility] Comment on above: Performed By: #### 2 297247, 3823082, 6157435, 47446657 ####[facility] [address] [place] [address] Platelets (Bld) [#/Vol] 210.0 E9/L Normal 150.0-500.0 [facility] Comment on above: Performed By: #### 2 967594, 6794248, 5495618, 25192516 ####[address] [place] [address] RBC (Bld) [#/Vol] 3.6 E12/L Low 4.3-5.9 [facility] Comment on above: Performed By: #### 2 970876, 5925282, 4757392, 76814500 ####[facility] [address] [place] [address] WBC corrected for nucl RBC Auto (Bld) [#/Vol] 5.4 E9/L Normal 4.0-11.0 [facility] Comment on above: Result Comment: Slid e reviewed by cmk. Performed By: #### 2 [id number], [id number] ####[facility] [address] [place] [address] CHEMISTRYOrdered By: SYSTEM SYSTEM on 03-15-2022 Anion gap [Moles/Vol] 16 mmol/L Normal 6 - 16 mEq/L [facility] Calcium [Mass/Vol] 9.3 mg/dL Normal 8.9 - 11. 1 mg/dL [facility] Remisol Chloride [Moles/Vol] 93 mmol/L Low 101 - 1 11 mmol/L [facility] Remisol CO2 [Moles/Vol] 28 mmol/L Normal 21 - 31 mmol/L [facility] Creatinine [Mass/Vol] 7.2 mg/dL High 0.5 - 1.3 mg/dL [facility] GFR/1.73 sq M.predicted among blacks MDRD (S/P/Bld) [Vol rate/Area] 9 mL/min/1.73 m2 Low >=59mL/min/1 .73 m2 [facility] Chem S GFR/1.73 sq M.predicted among non-blacks MDRD (S/P/Bld) [Vol rate/Area] 8 mL/min/1.73 m2 Low >=59mL/min/1 .73 m2 [facility] Chem S Glucose [Mass/Vol] 198 mg/dL Normal 55 - 199 mg/dL [facility] Potassium [Moles/Vol] 3.6 mmol/L Normal 3.5 - 5.3 mmol/L [facility] Sodium [Moles/Vol] 133 mmol/L Low 135 - 145 mmol/L [facility] Urea nitrogen [Mass/Vol] 17 mg/dL Normal 5 - 21 mg/dL [facility] Remisol Urea nitrogen/Creatinine [Mass ratio] 2 mg/mg Low 10 - 20 [facility] Remisol Cardiovascular Reporton Cardiovascular Report [id number]. 00CD:127 Normal [facility] Consent for Treatmenton Consent for Treatment [id number]#1.0 0CD:127 Normal [facility] Consent for Treatment [id number]#1.0 0CD:127 [facility] Consent for Treatment [id number]#1.0 0CD:127 Normal [facility] HEMATOLOGYOrdered By: SYSTEM SYSTEM on 03-15-2022 Basophils/100 WBC (Bld) 1.2 % Normal 0.0 - 2.0 % [facility] HemeAutoSS Basophils/Leukocytes Auto (Bld) [Pure # fraction] 0.1 E9/L Normal 0.0 - 0.2 E9/L [facility] HemeAutoSS Eosinophils/100 WBC (Bld) 2.9 % Normal 0.0 - 8.0 % [facility] HemeAutoSS Eosinophils/Leukocyt es Auto (Bld) [Pure # fraction] 0.2 E9/L Normal 0.0 - 0.5 E9/L [facility] HemeAutoSS Lymphocytes/100 WBC (Bld) 16.1 % Normal 14.0 - 50.0 % [facility] HemeAutoSS Lymphocytes/Leukocyt es Auto (Bld) [Pure # fraction] 0.9 E9/L Low 1.0 - 4.0 E9/L [facility] HemeAutoSS Monocytes/100 WBC (Bld) 15.1 % High 4.0 - 14.0 % [facility] HemeAutoSS Monocytes/Leukocytes Auto (Bld) [Pure # fraction] 0.8 E9/L Normal 0.2 - 1.0 E9/L [facility] HemeAutoSS Neutrophils/100 WBC (Bld) 64.7 % Normal 36.0 - 75.0 % [facility] HemeAutoSS Neutrophils/Leukocyt es Auto (Bld) [Pure # fraction] 3.5 E9/L Normal 2.0 - 7.5 E9/L [facility] HemeAutoSS HEMATOLOGYOrdered By: Nando Casanova on 03-15-2022 Erythrocyte distribution width (RBC) [Ratio] 15.4 % High 10.9 - 14.2 % [facility] HemeAutoSS Hematocrit (Bld) [Volume fraction] 32.3 % Low 37.7 - 49.0 % [facility] HemeAutoSS Hemoglobin (Bld) [Mass/Vol] 10.9 g/dL Low 13.5 - 17.5 gm/dL [facility] HemeAutoSS MCH (RBC) [Entitic mass] 30.5 pg Normal 27.0 - 34.0 pg [facility] HemeAutoSS MCHC (RBC) [Mass/Vol] 33.9 g/dL Normal 31.4 - 36.0 gm/dL [facility] HemeAutoSS MCV (RBC) [Entitic vol] 90.0 fL Normal 80.0 - 100.0 fL [facility] HemeAutoSS Platelet mean volume (Bld) [Entitic vol] 8.5 fL Normal 6.4 - 10.8 fL [facility] HemeAutoSS Platelets (Bld) [#/Vol] 210.0 E9/L Normal 150.0 - 500.0 E9/L [facility] HemeAutoSS RBC (Bld) [#/Vol] 3.6 E12/L Low 4.3 - 5.9 E12/L [facility] HemeAutoSS WBC corrected for nucl RBC Auto (Bld) [#/Vol] 5.4 E9/L Normal 4.0 - 11.0 E9/L [facility] HemeAutoSS Comment on above: Result Comment: Slid e reviewed by cmk. Heart and Vascular Office/Cl inic Noteon 03-15-2022 Heart and Vascular Office/Clinic Note Normal [facility] Comment on above: Result Comment: Elec tronically Signed By: Dorian FISH, Evelyn Lopez\.br\Date and Time Signed: 03/15/22 11:33 EST Inpatient Clinical Summaryon 03-15-2022 Inpatient Clinical Summary Normal [facility] Inpatient Patient Summaryon 03-15-2022 Inpatient Patient Summary Normal [facility] Patient Education - Texton 0 03-15-2022 Patient Education - Text Normal [facility] Progress Note-Physicianon Progress Note-Physician Normal [facility] Comment on above: Result Comment: Elec tronically Signed By: Evelyn Alarcon MD\.br\Date and Time Signed: 03/15/22 16:00 EST eGFRon 03-15-2022 GFR/1.73 sq M.predicted among blacks MDRD (S/P/Bld) [Vol rate/Area] 9 mL/min/1.73 m2 Low >=59 [facility] Comment on above: Order Comment: Order added by Discern Expert. Result Comment: eGFR is race adjusted. AA=. Performed By: #### 2 [id number] ####[facility] [address] [place] [address] GFR/1.73 sq M.predicted among non-blacks MDRD (S/P/Bld) [Vol rate/Area] 8 mL/min/1.73 m2 Low >=59 [facility] Comment on above: Order Comment: Order added by Discern Expert. Result Comment: Oxygen Therapy Technician jm kidney disease could be indicated at eGFR's of less than 60 mL/min/1.73m2. Kidney failure is indicated at less than 15 mL/min/1.73m2. Performed By: #### 2 [id number] ####[facility] [address] [place] [address] XR FOOT VENITA MIN 3 VIEWSon XR FOOT VENITA MIN 3 VIEWS EXAMINATION: XR FOOT VENITA MIN 3 VIEWS HISTORY: Pain in both feet COMPARISON: No relevant comparison available. FINDINGS: RIGHT FINDINGS: BONES: Acute transverse extra-articular fracture head of the third proximal phalanx. No dislocation. Degenerative changes with joint space narrowing and marginal osteophyte formation SOFT TISSUES: Extensive vascular calcifications OTHER: Negative. LEFT FINDINGS: BONES: Extra-articular fractures head of the third proximal phalanx and base of the fourth proximal phalanx. No dislocation. Degenerative changes with joint space narrowing and marginal osteophyte formation SOFT TISSUES: Extensive vascular calcifications OTHER: Negative. Call results initiated through operations IMPRESSION: RIGHT CONCLUSION: Acute fracture third proximal phalanx LEFT CONCLUSION: Acute fractures third and fourth proximal phalanges Electronically authenticated by: NATHEN LUCIA Date: 2022-02-15 11:42 Normal [facility] CULTURE WOUNDon 01-15-2022 CULTURE WOUND Culture Observations : METHICILLIN RESISTANT STAPH AUREUS ISOLATED. PLEASE FOLLOW APPROPRIATE ISOLATION PROCEDURES. Culture Observations: NO GROWTH OF ANAEROBES AT 72 HOURS. Isolate 1 Proteus mirabilis Moderate growth of Isolate 2 Staphylococcus aureus Heavy growth of Isolate 3 Escherichia coli Light growth of ORGANISM 2 Staphylococcus aureus ANTIBIOTIC M.I.C RX STATUS Beta-Lactamase Neg NEG F Cefoxitin Screen Pos POS F Benzylpenicillin >=0.5 R F Ciprofloxacin <=0.5 S F Levofloxacin <=0.12 S F Erythromycin <=0.25 S F Clindamycin <=0.25 S F Quinupristin/Dalfopris tin <=0.25 S F Linezolid 2 S F Vancomycin 1 S F Tetracycline <=1 S F Rifampicin <=0.5 S F Trimethoprim/Sulfameth oxazole <=10 S F Oxacillin >=4 R F ORGANISM 1 Proteus mirabilis ANTIBIOTIC M.I.C RX STATUS Ampicillin <=2 S F Ampicillin/Sulbactam <=2 S F Piperacillin/Tazobacta m <=4 S F Cefazolin <=4 S F Ceftazidime <=1 S F Ceftriaxone <=1 S F Ertapenem <=0.5 S F Imipenem 2 S F Amikacin <=2 S F Gentamicin <=1 S F Tobramycin <=1 S F Ciprofloxacin <=0.25 S F Levofloxacin <=0.12 S F Trimethoprim/Sulfameth oxazole <=20 S F ORGANISM 3 Escherichia coli ANTIBIOTIC M.I.C RX STATUS Ampicillin <=2 S F Ampicillin/Sulbactam <=2 S F Piperacillin/Tazobacta m <=4 S F Cefazolin <=4 S F Ceftazidime <=1 S F Ceftriaxone <=1 S F Ertapenem <=0.5 S F Imipenem <=0.25 S F Amikacin <=2 S F Gentamicin <=1 S F Tobramycin <=1 S F Ciprofloxacin <=0.25 S F Levofloxacin <=0.12 S F Trimethoprim/Sulfameth oxazole <=20 S F Normal [facility] Comment on above: Performed By: #### W OUNDCX #### [facility] [address] [place] [address] Dr. 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 Prescriptions will not be filled unless you are compliant with your follow up appointments or have a follow up appointment scheduled as per instruction of your physician. Refills should be requested at the time of your visit. Follow up in 1 year Chief Complaint CORBIN MURPHY is being seen for a 6 month follow-up of. 66-year-old gentleman returns for 6-month follow-up he is doing very well from a cardiovascular standpoint. He has no angina or heart failure. Details of his COVID illness in 2020 and extended hospitalization with subsequent transition end-stage renal disease now on hemodialysis are reviewed from my last note but are noted. He is tolerating dialysis reasonably well with occasional episodes of hypotension. He has had no heart failure. He has a history of ASHD with LEATHERSMITH intervention of the LAD in April 2018 with normalization of his LV function. He has underlying diabetes mild obesity He remains on appropriate guideline directed medical therapies and is intolerant to GOMEZ ARB due to hypotension. Recommendations, will continue current therapies and follow-up in 1 year Surgical History Problems History of Arteriovenous fistula revision procedure History of Cardiac catheterization History of Cholecystectomy History of Colonoscopy History of Renal lithotripsy History of Surgery Sclerosing Multiple Veins By Injection - One Leg History of Tonsillectomy with adenoidectomy History of Umbilical hernia repair History of Vasectomy Surgery Vas Deferens Vasectomy Current Meds Medication NameInstruction Acetaminophen 325 MG Oral TabletTAKE 1 TO 2 TABLETS EVERY 6 HOURS NEEDED. Aspirin EC 81 MG Oral Tablet Delayed ReleaseTAKE 1 TABLET DAILY. Atorvastatin Calcium 40 MG Oral TabletTAKE 1 TABLET BY MOUTH EVERYDAY AT BEDTIME EMLA CREAapply 1 hour before dialysis- 3 days weekly Heparin (Porcine) in NaCl 1000-0.9 UT/500ML-% Intravenous Ovwashca2073 units every dialysis loading dose Levothyroxine Sodium 100 MCG Oral TabletTAKE 1 TABLET BY MOUTH EVERY DAY Midodrine HCl - 5 MG Oral TabletTAKE 1 TAB BY MOUTH EVERY SATURDAY,SATURDAY,AND SATURDAY BEFORE DIALYSIS NEEDED MiraLax 17 GM Oral PacketUSE DIRECTED. NovoLIN 70/30 ReliOn (70-30) 100 UNIT/ML Subcutaneous SuspensionINJECT 30 UNITS SUBCUTANEOUSLY IN THE MORNING AND 14 UNITS IN THE EVENING NovoLIN R 100 UNIT/ML Injection SolutionUSE DIRECTED. Tums E-X 750 750 MG Oral Tablet ChewableTAKE DIRECTED. Vitamin B-12 100 MCG Oral TabletTAKE 1 TABLET DAILY DIRECTED. Zemplar 2 MCG/ML Intravenous Solution7 micrograms 3 times weekly. Allergies Medication GOMEZ Inhibitors Adverse Reaction; Hypotension;; Recorded By: Otto Fermin; 01/11/2022 12:00:45 PM Beta Adrenergic Blockers Adverse Reaction; Hypotension;; Recorded By: Otto Fermin; 01/11/2022 11:55:24 AM Bandages MISC Allergy; Rash; Recorded By: Sole Pérez; 01/11/2022 11:27:30 AM Coband-Cohesive bandage Brilinta TABS Adverse Reaction; Headache; Nausea; Vomiting; Recorded By: Kendy Pérez; 02/23/2021 10:13:30 AM Social History Problems Caffeine use (V49.89) (Z78.9) 2-3 times weekly- Coffee. 1 pop daily Never a smoker No alcohol use No illicit drug use Review of Systems Constitutional: not feeling tired. Cardiovascular: no intermittent leg claudication and as noted in HPI. Respiratory: no cough and no shortness of breath. Gastrointestinal: no change in bowel habits and no blood in stools. Integumentary: no skin rashes. Neurological: no seizures and no frequent falls. All other systems have been reviewed and are negative for complaint. Vitals Vital Signs Recorded: 11Jan2022 11:29AM Heart Rate80, L Radial Pdjmbllt25, RUE, Sitting Voelepzun52, RUE, Sitting Height5 ft 10 in Dsrhjl646 lb BMI Vhqbaktllq47.71 kg/m2 BSA Calculated2.21 Tobacco Useb) No Falls Screening (Age 18+)a) No falls within the last year Physical Exam Constitutional: alert and in no acute distress. Neck: neck is supple, symmetric, trachea midline, no masses and no thyromegaly . Pulmonary: no increased work of breathing or signs of respiratory distress and lungs clear to auscultation. Cardiovascular: carotid pulses 2+ bilaterally with no bruit , JVP was normal, no thrills , regular rhythm, normal S1 and S2, no murmurs , pedal pulses 2+ bilaterally and no edema . Abdomen: abdomen non-tender, no masses and no hepatomegaly . Skin: skin wa (more content not included)... Normal [employer] Tobacco Screening.on 022 Fall risk assessment a) No falls within the last year [facility] [employer] 250 DO Work Phone: Tobacco use status [facility] b) No [employer] [employer] 250 DO Work Phone: Glucose Poct Glucometerson 1 02-26-2021 Glucose [Mass/Vol] 82 mg/dL Normal [facility] Comment on above: Result Comment: [facility] Glucose Reference Range is dependent on time and content of last meal. Glucose of more than 200 mg/dL in a nonstressed, ambulatory subject supports the diagnosis of Diabetes Mellitus. PERFORMED BY: [facility] Kash [place] [address] PATHOLOGIST MAINS AND SERVICE SUPERVISOR DEAN MCWILLIAMS M.D. Performed By: #### G LULS #### Point of Care testing , Coding Summary.on 11-07-2021 Coding Summary. Normal [facility] Coding Summary.on 11-06-2021 Coding Summary. Normal [facility] Cardiovascular Reporton 10-13 Cardiovascular Report [id number]#2. 00CD:127 [facility] Consent for Procedure/Surger yon 11-03-2021 Consent for Procedure/Surgery [id number]#1.0 0CD:127 [facility] Consent for Treatmenton 10-13 Consent for Treatment [id number]#1.0 0CD:127 [facility] Inpatient Clinical Summaryon 11-02-2021 Inpatient Clinical Summary [facility] Inpatient Patient Summaryon 11-02-2021 Inpatient Patient Summary [facility] Operative Reporton Operative Report [facility] Comment on above: Result Comment: Elec tronically Signed By: Evelyn Alarcon MD\.br\Date and Time Signed: 11/02/21 16:32 EDT Patient Education - Texton 0 11-02-2021 Patient Education - Text [facility] Progress Note-Physicianon Progress Note-Physician [facility] Comment on above: Result Comment: Elec tronically Signed By: Evelyn Alarcon MD\.br\Date and Time Signed: 11/02/21 15:53 EDT Consent for Treatmenton 10-12 Consent for Treatment [id number]#1.0 0CD:127 Normal [facility] Heart and Vascular Office/Cl inic Noteon 10-26-2021 Heart and Vascular Office/Clinic Note Normal [facility] Comment on above: Result Comment: Elec tronically Signed By: oDrian FISH, Evelyn FElodia\.br\Date and Time Signed: 10/26/21 15:13 EDT CBC AUTO DIFFon 08-28-2021 BASO # 0.0 103/ul Normal 0.0-0.1 [facility] Comment on above: Performed By: #### C BC #### [facility] [address] [place] [address] Dr. Radha Edward Basophils/100 WBC (Bld) 0.6 % Normal 0.2-2.0 [facility] Comment on above: Performed By: #### C BC #### [facility] [address] [place] [address] Dr. Radha Edward EO # 0.1 103/ul Normal 0.0-0.7 [facility] Comment on above: Performed By: #### C BC #### [facility] [address] [place] [address] Dr. Radha Edward Eosinophils/100 WBC (Bld) 1.7 % Normal 0.9-7.0 [facility] Comment on above: Performed By: #### C BC #### [facility] [address] [place] [address] Dr. Radha Edward Erythrocyte distribution width (RBC) [Ratio] 14.5 % Normal 11.0-15.0 [facility] Comment on above: Performed By: #### C BC #### [facility] [address] [place] [address] Dr. Radha Edward Hematocrit (Bld) [Volume fraction] 34.0 % Critically low 42.0-54.0 [facility] Comment on above: Performed By: #### C BC #### [facility] [address] [address] [address] Radha Edward Hemoglobin (Bld) [Mass/Vol] 11.1 g/dL Critically low 14.0-18.0 [facility] Comment on above: Performed By: #### C BC #### [facility] [address] [place] [address] Dr. Radha Edward IG # 0.02 10e3/ul Normal 0.00-0.03 [facility] Comment on above: Performed By: #### C BC #### [facility] [address] [place] [address] Dr. Radha Edward IG % 0.4 % Normal 0.0-0.5 [facility] Comment on above: Performed By: #### C BC #### [facility] [address] [place] [address] Dr. Radha Edward LYMPH # 1.0 103/ul Critically low 1.2-3.8 [facility] Comment on above: Performed By: #### C BC #### [facility] [address] [place] [address] Dr. Radha Edward Lymphocytes/100 WBC (Bld) 18.6 % Critically low 20.5-60.0 [facility] Comment on above: Performed By: #### C BC #### [facility] [address] [place] [address] Dr. Radha Edward MANUAL DIFF REQ NO Normal [facility] Comment on above: Performed By: #### C BC #### [facility] [address] [place] [address] Dr. Radha Edward MCH (RBC) [Entitic mass] 30.5 pg Normal 25.9-34.0 [facility] Comment on above: Performed By: #### C BC #### [facility] [address] [place] [address] Dr. Radha Edward MCHC (RBC) [Mass/Vol] 32.6 g/dL Normal 29.9-35.2 [facility] Comment on above: Performed By: #### C BC #### [facility] [address] [place] [address] Dr. Radha Edward MCV (RBC) [Entitic vol] 93.4 fL Normal 80.0-94.0 [facility] Comment on above: Performed By: #### C BC #### [facility] [address] [address] [address] Radha Edward MONO # 0.8 103/ul Normal 0.3-0.8 [facility] Comment on above: Performed By: #### C BC #### [facility] [address] [address] [address] Radha Edward Monocytes/100 WBC (Bld) 15.1 % Critically high 1.7-12.0 [facility] Comment on above: Performed By: #### C BC #### [facility] [address] [place] [address] Dr. Radha Edward NEUT # 3.5 103/ul Normal 1.4-6.5 [facility] Comment on above: Performed By: #### C BC #### [facility] [address] [place] [address] Dr. Radha Edward Neutrophils/100 WBC (Bld) 63.6 % Normal 43.0-75.0 [facility] Comment on above: Performed By: #### C BC #### [facility] [address] [place] [address] Dr. Radha Edward Platelet mean volume (Bld) [Entitic vol] 9.8 fL Normal 9.5-13.5 [facility] Comment on above: Performed By: #### C BC #### [facility] [address] [place] [address] Dr. Radha Edward PLT 156 103/ul Normal 150-450 [facility] Comment on above: Performed By: #### C BC #### [facility] [address] [place] [address] Dr. Radha Edward RBC 3.64 106/ul Critically low 4.70-6.10 [facility] Comment on above: Performed By: #### C BC #### [facility] [address] [place] [address] Dr. Radha Edward WBC 5.4 103/ul Normal 4.0-11.0 [facility] Comment on above: Performed By: #### C BC #### [facility] [address] [address] [address] Radha Edward PROF 14(COMP METB)on 022 Albumin [Mass/Vol] 3.6 g/dL Normal 3.4-5.0 [facility] Comment on above: Performed By: #### C MP, TSH, HSTROPN #### [facility] [address] [place] [address] Dr. Radha Edward Albumin/Globulin [Mass ratio] 0.9 {ratio} Normal [facility] Comment on above: Performed By: #### C MP, TSH, HSTROPN #### [facility] [address] [place] [address] Dr. Radha Edward ALP [Catalytic activity/Vol] 135 U/L Critically high 46-116 [facility] Comment on above: Performed By: #### C MP, TSH, HSTROPN #### [facility] [address] [place] [address] Dr. Radha Edward ALT [Catalytic activity/Vol] 21 U/L Normal 16-63 [facility] Comment on above: Performed By: #### C MP, TSH, HSTROPN #### [facility] [address] [place] [address] Dr. Radha Edward Anion gap [Moles/Vol] 13.6 mmol/L Normal [facility] Comment on above: Performed By: #### C MP, TSH, HSTROPN #### [facility] [address] [place] [address] Dr. Radha Edward AST [Catalytic activity/Vol] 14 U/L Critically low 15-37 [facility] Comment on above: Performed By: #### C MP, TSH, HSTROPN #### [facility] [address] [place] [address] Dr. Radha Edward Bilirubin [Mass/Vol] 0.6 mg/dL Normal 0.2-1.0 [facility] Comment on above: Performed By: #### C MP, TSH, HSTROPN #### [facility] [address] [address] [address] Radha Edward Calcium [Mass/Vol] 9.1 mg/dL Normal 8.5-10.1 [facility] Comment on above: Performed By: #### C MP, TSH, HSTROPN #### [facility] [address] [address] [address] Radha Edward Chloride [Moles/Vol] 95 mmol/L Critically low 98-107 [facility] Comment on above: Performed By: #### C MP, TSH, HSTROPN #### [facility] [address] [address] [address] Radha Edward CO2 [Moles/Vol] 29.8 mmol/L Normal 21.0-32.0 [facility] Comment on above: Performed By: #### C MP, TSH, HSTROPN #### [facility] [address] [place] [address] Dr. Radha Edward Creatinine [Mass/Vol] 5.55 mg/dL Critically high 0.70-1.30 [facility] Comment on above: Performed By: #### C MP, TSH, HSTROPN #### [facility] [address] [place] [address] Dr. Radha Edward EGFR-AF ISRAELI 13 mL/min/1.73m2 Critically low >=60 [facility] Comment on above: Performed By: #### C MP, TSH, HSTROPN #### [facility] [address] [address] [address] Radha Edward EGFR-NON AF ISRAELI 10 mL/min/1.73m2 Critically low >=60 [facility] Comment on above: Performed By: #### C MP, TSH, HSTROPN #### [facility] [address] [place] [address] Dr. Radha Edward Globulin (S) [Mass/Vol] 3.9 g/dL Normal [facility] Comment on above: Performed By: #### C MP, TSH, HSTROPN #### [facility] [address] [address] [address] Radha Edward Glucose [Mass/Vol] 164 mg/dL Critically high 74-106 [facility] Comment on above: Performed By: #### C MP, TSH, HSTROPN #### [facility] [address] [place] [address] Dr. Radha Edward Potassium [Moles/Vol] 3.4 mmol/L Critically low 3.5-5.1 [facility] Comment on above: Performed By: #### C MP, TSH, HSTROPN #### [facility] [address] [address] [address] Radha Edward Protein [Mass/Vol] 7.5 g/dL Normal 6.4-8.2 [facility] Comment on above: Performed By: #### C MP, TSH, HSTROPN #### [facility] Laboratory [address] [place] [address] Dr. Radha Edward Sodium [Moles/Vol] 135 mmol/L Critically low 136-145 [facility] Comment on above: Performed By: #### C MP, TSH, HSTROPN #### [facility] [address] [address] [address] Radha Edward Urea nitrogen [Mass/Vol] 13.0 mg/dL Normal 7.0-18.0 [facility] Comment on above: Performed By: #### C MP, TSH, HSTROPN #### [facility] [address] [place] [address] Dr. Radha Edward Urea nitrogen/Creatinine [Mass ratio] 2.3 mg/mg Normal [facility] Comment on above: Performed By: #### C MP, TSH, HSTROPN #### [facility] [address] [place] [address] Dr. Radha Edward TROPONIN, HIGH SENSITIVITYon 08-28-2021 HSTROP 11.8 pg/mL Normal 4.0-76.1 [facility] Comment on above: Result Comment: CUT- OFF POINTS HAVE BEEN ESTABLISHED BASED ON THE FOURTH UNIVERSAL DEFINITIONS OF MYOCARDIAL INFARCTION. THE UPPER REFERENCE LIMIT (URL) OF TROPONIN, DEFINED THE 99TH PERCENTILE OF cTnI DISTRIBUTION IN A REFERENCE POPULATION, HAS BEEN CONFIRMED THE DECISION THRESHOLD FOR TN DIAGNOSIS. Performed By: #### C MP, TSH, HSTROPN #### [facility] [address] [place], [place] [address] Dr. Radha Ewdard TSHon 08-28-2021 TSH 0.749 uIU/mL Normal 0.358-3.740 [facility] Comment on above: Performed By: #### C MP, TSH, HSTROPN #### [facility] [address] [place], [place] [address] Dr. Radha Edward XR CHEST 1 Von 08-28-2021 XR CHEST 1 V CHEST X-RAY, 1 VIEW HISTORY: Bradycardia. Chest pain. COMPARISON: 09/01/2019. FINDINGS: The cardiac silhouette is enlarged. Left hemidiaphragm is elevated. The lungs are grossly clear. There are no pleural effusions. There is no pneumothorax. IMPRESSION: No evidence of acute cardiopulmonary disease. Electronically authenticated by: CHRISTIANNE MELVIN Date: 2021-08-28 18:59 Normal [facility] Office Visit (Cardiology)on 07-13-2021 Follow-up visit Diagnoses/Problems Assessed Arteriosclerotic heart disease (414.00) (I25.10) Ischemic cardiomyopathy (414.8) (I25.5) Hyperlipemia (272.4) (E78.5) Essential hypertension (401.9) (I10) Diabetes mellitus (250.00) (E11.9) Class 1 obesity with body mass index (BMI) of 32.0 to 32.9 in adult (278.00,V85.32) (E66.9,Z68.32) ESRD (end stage renal disease) on dialysis (585.6,V45.11) (N18.6,Z99.2) Never a smoker Orders Arteriosclerotic heart disease Renew: Aspirin EC 81 MG Oral Tablet Delayed Release; TAKE 1 TABLET DAILY SocHx: Never a smoker Tobacco Use Screening; Status:Complete; Done: 13Jul2021 Patient Instructions Please bring all medicines, vitamins, and herbal supplements with you when you come to the office. Prescriptions will not be filled unless you are compliant with your follow up appointments or have a follow up appointment scheduled as per instruction of your physician. Refills should be requested at the time of your visit. Chief Complaint CORBIN MURPHY is being seen for a 6 month follow-up of. Patient is a 65-year-old gentleman returns for follow-up he is doing well he is still ambulatory with wheelchair and walker following and is prolonged and severe COVID illness in 2019. He underwent anterior TN with PCI chronic total occlusion of the proximal through mid LAD x2 drug-eluting stents in March 2018; follow-up echocardiogram revealed low normal left ventricular function with ejection fraction of 50% in September 2018. In March 2020 he underwent COVID infection with prolonged intubation and hospitalization in [place] with multiorgan failure details of which have been reviewed. He stable without angina, heart failure recurrent hospitalizations, currently on dialysis due to end-stage renal disease associated with his COVID infection and diabetes. Recommendations, obtain appropriate laboratories and follow-up in 6 to 12 months Current Meds Medication NameInstruction Acetaminophen 325 MG Oral TabletTAKE 1 TO 2 TABLETS EVERY 6 HOURS NEEDED. Aranesp (Albumin Free) 25 MCG/0.42ML Injection Solution Prefilled Syringeevery other week for dialysis Aspirin EC 81 MG Oral Tablet Delayed ReleaseTAKE 1 TABLET DAILY. Atorvastatin Calcium 40 MG Oral TabletTAKE 1 TABLET BY MOUTH EVERYDAY AT BEDTIME Doxazosin Mesylate 1 MG Oral TabletTAKE 1 TABLET BY MOUTH EVERY DAY Ferrlecit 12.5 MG/ML Intravenous SolutionUSE DIRECTED. Heparin (Porcine) in NaCl 1000-0.9 UT/500ML-% Intravenous Dtaxnwbo2090 unitts every dialysis loading dose hydrALAZINE HCl - 50 MG Oral TabletTAKE 1 TABLET BY MOUTH THREE TIMES A DAY Levothyroxine Sodium 100 MCG Oral TabletTAKE 1 TABLET BY MOUTH EVERY DAY NovoLIN 70/30 ReliOn (70-30) 100 UNIT/ML Subcutaneous SuspensionINJECT 30 UNITS SUBCUTANEOUSLY IN THE MORNING AND 14 UNITS IN THE EVENING Vitamin B-12 100 MCG Oral TabletTAKE 1 TABLET DAILY DIRECTED. Allergies Medication Brilinta TABS Adverse Reaction; Headache; Nausea; Vomiting; Recorded By: Kendy Pérez; 02/23/2021 10:13:30 AM Social History Problems Caffeine use (V49.89) (Z78.9) Never a smoker No alcohol use No illicit drug use Review of Systems Constitutional: not feeling tired. Cardiovascular: no intermittent leg claudication and as noted in HPI. Respiratory: no cough and no shortness of breath. Gastrointestinal: no change in bowel habits and no blood in stools. Integumentary: no skin rashes. Neurological: no seizures and no frequent falls. All other systems have been reviewed and are negative for complaint. Vitals Vital Signs Recorded: 13Jul2021 11:47AM Heart Rate66, R Radial Iahegeyr194, RUE, Sitting Wcopfbqev77, RUE, Sitting Height5 ft 10 in Punnln469 lb BMI Kpjffhobhn23.14 kg/m2 BSA Calculated2.19 Tobacco Useb) No PHQ-2 #1. Over the last 2 weeks have you felt down, depressed or hopeless? (If yes, answer PHQ-9 below)No PHQ-2 #2. Over the last 2 weeks have you felt little interest or pleasure in doing things? (If yes, answer PHQ-9 below)No Fall Screeninga) No falls within the last year Physical Exam Constitutional: alert and in no acute distress. Neck: neck is supple, symmetric, trachea midline, no masses and no thyromegaly . Pulmonary: no increased work of breathing or signs of respiratory distress and lungs clear to auscultation. Cardiovascular: carotid pulses 2+ bilaterally with no bruit , JVP was normal, no thrills , regular rhythm, normal S1 and S2, no murmurs , pedal pulses 2+ bilaterally and no edema . Abdomen: abdomen non-tender, no masses and no hepatomegaly . Skin: skin warm and dry, normal skin turgor . Psychiatric judgment and insight is normal and oriented to person, place and time . Signatures Electronically signed by : Corbin Ying DO; Jul 13 2021 12:27PM EST (Author) Normal [employer] Tobacco Screening.on 022 Adult depression screening assessment No [facility] [employer] 250 DO Work Phone: Fall risk assessment a) No falls within the last year [facility] [employer] 250 DO Work Phone: Tobacco use status CPHS b) No [facility] [employer] 250 DO Work Phone: Echocardiogramon 10-20-2020 Echocardiography [facility] [address] [place] [address], [address] [place] [address] TRANSTHORACIC ECHOCARDIOGRAM REPORT Patient Name: CORBIN MURPHY Reading Physician: [id number] Alfredo Saravia DO Study Date: 10/20/2020 Referring [id number] CORBIN YING Physician: MRN/PID: [id number] PCP: Nav Alejo Accession/Order#: [id number] Location: [place] Date of : 1955 Fellow: Gender: M Nurse: Admit Date: Rubber Compounder: Deena Adams RDCS, RVT Height: 177.80 cm CC Report to: Marina Agudelo Weight: 103.42 kg Study Type: Echocardiogram BSA: 2.21 m2 Diagnosis/ICD: I25.10-Atherosclerotic heart disease of [place] coronary artery without angina pectoris; I25.5-Ischemic cardiomyopathy Indication: Diabetes, HTN, CKD-End Stage-On Hemodialysis, History of DVT, Obesity, COVID Procedure/CPT: Echo Complete w Full Doppler-11917 Study Detail: The following Echo studies were performed: 2D, M-Mode, Doppler and color flow. PHYSICIAN INTERPRETATION: Left Ventricle: The left ventricular systolic function is normal, with an estimated ejection fraction of 60-65%. There are no regional wall motion abnormalities. The left ventricular cavity size is normal. There is mild concentric left ventricular hypertrophy. Spectral Doppler shows an impaired relaxation pattern of left ventricular diastolic filling. There is no definite left ventricular thrombus visualized. Wall motion appears normal. Left Atrium: The left atrium is mildly dilated. Right Ventricle: The right ventricle is normal in size. There is normal right ventricular global systolic function. Right Atrium: The right atrium is normal in size. Aortic Valve: The aortic valve appears structurally normal. There is no evidence of aortic valve stenosis. There is no evidence of aortic valve regurgitation. The peak instantaneous gradient of the aortic valve is 6.2 mmHg. The mean gradient of the aortic valve is 3.0 mmHg. Mitral Valve: The mitral valve is normal in structure. There is no evidence of mitral valve stenosis. The doppler estimated mean and peak diastolic pressure gradients are 4.0 mmHg and 6.2 mmHg respectively. There is trace mitral valve regurgitation. Tricuspid Valve: The tricuspid valve is structurally normal. There is trace tricuspid regurgitation. Pulmonic Valve: The pulmonic valve is structurally normal. There is trace pulmonic valve regurgitation. Pericardium: There is no pericardial effusion noted. Aorta: The aortic root is normal. Systemic Veins: The inferior vena cava appears to be of normal size. CONCLUSIONS: 1. The left ventricular systolic function is normal with a 60-65% estimated ejection fraction. 2. No left ventricular thrombus visualized. 3. Spectral Doppler shows an impaired relaxation pattern of left ventricular diastolic filling. 4. Aortic valve stenosis is not present. 5. Compared to echo of 09/10/18, there has been improvement in lvef. QUANTITATIVE DATA SUMMARY: 2D MEASUREMENTS: Normal Ranges: Ao Root d: 3.60 cm (2.0-3.7cm) LAs: 4.20 cm (2.7-4.0cm) RVIDd: 3.30 cm (0.9-3.6cm) IVSd: 1.50 cm (0.6-1.1cm) LVPWd: 1.30 cm (0.6-1.1cm) LVIDd: 4.70 cm (3.9-5.9cm) LVIDs: 3.80 cm LV Mass Index: 120.2 g/m2 LV % FS 19.1 % LV SYSTOLIC FUNCTION BY 2D PLANIMETRY (MOD): Normal Ranges: EF-A4C View: 72.5 % (>55%) LV DIASTOLIC FUNCTION: Normal Ranges: MV Peak E: 1.05 m/s (0.7-1.2 m/s) MV Peak A: 1.13 m/s (0.42-0.7 m/s) E/A Ratio: 0.93 (1.0-2.2) MV lateral e' 0.10 m/s MV medial e' 0.07 m/s E/e' Ratio: 10.00 (<8.0) MITRAL VALVE: Normal Ranges: MV Vmax: 1.24 m/s (<1.3m/s) MV peak P.2 mmHg (<5mmHg) MV mean P.0 mmHg (<48mmHg) AORTIC VALVE: Normal Ranges: AoV Vmax: 1.24 m/s (<1.7m/s) AoV Peak P.2 mmHg (<20mmHg) AoV Mean P.0 mmHg (1.7-11.5mmHg) LVOT Max Marvel: 1.11 m/s (<1.1m/s) AoV VTI: 25.50 cm (18-25cm) LVOT VTI: 24.70 cm LVOT Diameter: 2.80 cm (1.8-2.4cm) AoV Area, VTI: 5.96 cm2 (2.5-5.5cm2) AoV Area,Vmax: 5.51 cm2 (2.5-4.5cm2) AoV Dimensionless Index: 0.97 TRICUSPID VALVE/RVSP: Normal Ranges: Peak TR Velocity: 2.78 m/s RV Syst Pressure: 33.9 mmHg (< 30mmHg) PULMONIC VALVE: Normal Ranges: PV Max Marvel: 0.9 m/s (0.6-0.9m/s) PV Max P.4 mmHg [id number] Alfredo Saravia DO Electronically signed on 10/20/2020 at 4:08:28 PM Final Normal [facility] PROGRESSon 08-27-2019 PROGRESS HNO ID: [id number] Author: Diane Chacon) Abdullahi Service: ? Author Type: Physician Yarn Finisher Type: Progress Notes Filed: 08/28/2019 10:29 AM Note Text: [facility] NOTE NAME: CHRISTY MURPHY NO.: [id number] DATE OF SERVICE: 08/27/2019 [facility] DATE OF : 1955 CHIEF COMPLAINT: Followup for discharge. SUBJECTIVE FINDINGS: The patient was seen in his room at [facility] lying in bed. I remained greater than 6 feet away from the patient for the evaluation due to the COVID-19 pandemic. The patient is discharging to home today, where he will reside with his . He will be set up with home healthcare, physical therapy, occupational therapy, an RN, and an aide. He is doing well with dialysis and recently underwent left upper extremity fistula creation. He denies any pain. Overall, blood sugars and blood pressures have been very well controlled. REVIEW OF SYSTEMS: The patient had no complaints of fever, chills, chest pain, or dyspnea. He is eating and drinking well and denied any bowel issues. MEDICATIONS: Medications for discharge as follows: Levothyroxine 100 mcg daily, aspirin 81 mg daily, labetalol 100 mg p.o. b.i.d., ferrous sulfate 325 mg 1 daily, sliding scale insulin coverage, vitamin B complex 1 daily, MiraLax 17 g 1 daily, hydralazine 50 mg 1 p.o. q.8 hours, amlodipine 5 mg once daily, atorvastatin 40 mg nightly, doxazosin mesylate 1 mg 1 tablet at bedtime, detemir 25 units subcutaneously b.i.d. PHYSICAL EXAMINATION: Temperature 98.5, pulse 67, respirations 20, BP 120/56, pulse oximetry 93%. Examination revealed an elderly man lying in bed. He appeared chronically ill but appeared comfortable. He was not dyspneic or tachypneic. He was moving all extremities well. ASSESSMENT AND PLAN: 1. End-stage renal disease on dialysis. The patient is okay and approved for discharge to home. He will be followed closely by Nephrology and undergo dialysis 3 times weekly. In addition, it is recommended that he follow up with his primary care physician within 1 to 2 weeks of discharge. 2. Type 2 diabetes mellitus. Blood sugar well controlled on current regimen. Again, should follow with his primary care physician. 3. Hypertension. Blood pressure is stable on his current regimen. We will recommend ongoing monitoring. 4. Hypothyroidism. Continue current dose of Synthroid. 5. Weakness. The patient is okay for discharge with home health, physical therapy, occupational therapy, registered nurse, and aide. He has good family support with his . Again, he should follow with his primary care physician as well within 1 to 2 weeks of discharge. Greater than 31 minutes spent in the discharge process on this patient. DICTATED BY: Diane Lerner PA-C PG/Acjanis JOB# [id number] cc:Haguebelkis Barker Normal [facility] PROGRESSon 08-07-2019 PROGRESS HNO ID: [id number] Author: Diane Lerner ([place]) Service: ? Author Type: Physician Yarn Finisher Type: Progress Notes Filed: 08/11/2019 6:39 AM Note Text: [facility] NOTE NAME: CHRISTY MURPHY NO.: [id number] DATE OF SERVICE: 08/07/2019 [facility] DATE OF : 1955 HALFWAY CHART VISIT NOTE CHIEF COMPLAINT: Followup for end-stage renal disease, weakness, and other medical issues. SUBJECTIVE FINDINGS: The patient was seen in his room at [facility] lying in bed. I remained greater than 6 feet away from the patient for the evaluation due to the COVID-19 pandemic. The patient is doing well in the facility and participating well with therapy. He underwent fistula creation of the left upper extremity on August 06, 2019. He is having some mild discomfort at this site; however, had no other significant complaints. He did complain of some skin irritation of the buttock area. Overall, blood pressures and blood sugars have been well controlled. REVIEW OF SYSTEMS: There are no documented complaints of fever, chills, chest pain, shortness of breath, or dyspnea. The patient seems to be eating and drinking well and denied any bowel issues. MEDICATIONS: Reviewed in the long-term record. CODE STATUS: Full code. PHYSICAL EXAMINATION: Temperature 98.5, pulse 68, respirations 16, BP 112/56, pulse oximetry 95%. Examination revealed a mildly obese, middle-aged man lying in bed. He was alert and appeared fairly comfortable. He was not dyspneic or tachypneic. He was moving all extremities equally. Sacral area was evaluated and the patient did have some mild erythema at the upper gluteal cleft with 2 small open scabbed areas on each side of the gluteal cleft measuring approximately 0.5 cm in diameter. ASSESSMENT AND PLAN: 1. Moisture-associated dermatitis with possible shearing. We will ask wound nurse to see and evaluate the patient and we will utilize barrier cream at this time. 2. End-stage renal disease. Currently on hemodialysis. Status post recent fistula creation, doing well. 3. Type 2 diabetes mellitus. Blood sugar well controlled on current regimen. 4. Hypertension. Blood pressure stable on labetalol, hydralazine and amlodipine. 5. Weakness. Continue ongoing therapies. DICTATED BY: Diane Lerner PA-C PG/Meagan JOB# [id number] cc:[facility] Normal [facility] PROGRESSon 07-29-2019 PROGRESS HNO ID: [id number] Author: Diane Lerner (Pa) Service: ? Author Type: Physician Yarn Finisher Type: Progress Notes Filed: 07/30/2019 12:39 PM Note Text: [facility] NOTE NAME: CHRISTY MURPHY NO.: [id number] DATE OF SERVICE: 07/29/2019 [facility] DATE OF : 1955 CHIEF COMPLAINT: Follow up for end-stage renal disease, weakness, and other medical issues. SUBJECTIVE FINDINGS: The patient was seen in his room at [facility] sitting up in his wheelchair. I remained greater than 6 feet away from him for the evaluation due to the COVID-19 pandemic. The patient was recently readmitted to the facility after discharge to home where he was residing with his . The patient had a great deal of difficulty with care and functioning at home and now is in the facility for additional therapy. He continues to attend hemodialysis 3 times per week. He is scheduled to undergo fistula creation on August 06, 2019. He had no other significant complaints for me today. Blood sugars have been well controlled. REVIEW OF SYSTEMS: See above. MEDICATIONS: Reviewed in the long-term record. CODE STATUS: Full code. PHYSICAL EXAMINATION: Temp 98.2, pulse 75, respirations 16, BP 112/60, pulse oximetry 93%. Examination revealed a mildly obese, middle-aged man, sitting up in his wheelchair. He was alert and appeared comfortable. He was not dyspneic or tachypneic. He seemed to be moving all extremities equally. ASSESSMENT AND PLAN: 1. End-stage renal disease. Continue hemodialysis and management per Nephrology. 2. Hypothyroidism. Continue current dose of Synthroid. 3. Type 2 diabetes mellitus. Continue current insulin regimen. 4. Hypertension. Blood pressure is stable on labetalol and hydralazine as well as amlodipine. 5. Weakness. Continue ongoing therapies. DICTATED BY: Diane Lerner PA-C PG/Acshakirs JOB# [id number] cc:[facility] Normal [facility] PROGRESSon 07-27-2019 PROGRESS HNO ID: [id number] Author: Saad Ahumada Service: ? Author Type: Physician Type: Progress Notes Filed: 07/29/2019 5:29 PM Note Text: [id number] DATE OF SERVICE: 07/27/2019 [facility] DATE OF : 1955 NEW PATIENT HISTORY AND PHYSICAL HISTORY OF PRESENT ILLNESS: The patient is a 63-year-old male who was admitted to us directly from home with the diagnosis of possible recent fall, recent hypoxic respiratory failure requiring prolonged intubation and mechanical ventilation with subsequent tracheostomy and PEG tube placement due to influenza A with septic shock with subsequent decannulation and removal of PEG tube, end-stage renal disease secondary to acute tubular necrosis secondary to recent sepsis, chronic diastolic congestive heart failure, diabetes mellitus type 2, chronic anemia secondary to chronic kidney disease, coronary artery disease with previous remote myocardial infarction and stenting, obstructive sleep apnea, obesity hypoventilation syndrome, past history of deep venous thrombosis with chronic venous insufficiency in the lower extremities, remote cholecystectomy, previous abdominal hernia repair, and generalized weakness. The patient had been recently discharged from our facility well over a week ago after undergoing extensive rehabilitation. His 1st day that he got home, he apparently slid onto the floor, but denies any major falls or head trauma. Otherwise, he claims to have been managing fairly well at home. However, he is indicating that he is scheduled to undergo placement of an AV fistula for his hemodialysis and that he would not be able to effectively use his arm while the fistula healed and that he would be better off back in our facility in preparation for that. He is indicating that he is back as a precautionary process. REVIEW OF SYSTEMS: He is currently sitting up in his room in his wheelchair. He is alert and oriented. Once again, he denies any subsequent major or significant falls or trauma. He claims to be doing fairly well otherwise. He has had no change in his vision or hearing, or loss of consciousness. He denies being short of breath at this time. He has recovered nicely from his recent respiratory failure which did require prolonged intubation and mechanical ventilation. No history of COPD or emphysema/asthma/bronc hitis. No prior smoking history. He apparently did experience a heart attack in the past and is status post coronary stenting. He has had no recent chest pain or angina. He does have chronic diastolic heart failure which has been stable and compensated. No bleeding ulcers, hepatitis, or melena. No prior strokes or seizures. He is diabetic, type 2, with diabetic neuropathy. He has also had venous stasis edema with venous ulcers and venous insufficiency with a past history of DVT. No recent fevers or chills. FAMILY HISTORY: Significant for heart disease as well as diabetes. SOCIAL/FUNCTIONAL HISTORY: He denies smoking or alcohol abuse. 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 Once again, he has been living at home with his . MEDICATIONS: Amlodipine 5 mg daily, aspirin 81 mg daily, atorvastatin 40 mg daily, doxazosin 1 mg at bedtime, ferrous sulfate 325 mg daily, hydralazine 50 mg every 8 hours, aspart insulin sliding scale coverage, detemir insulin 25 units subcutaneous b.i.d., labetalol 100 mg b.i.d., levothyroxine 100 mcg daily, MiraLax daily, vitamin B complex daily. ALLERGIES: BRILINTA. EXAMINATION: Afebrile, vital signs stable. He is in no distress. He does appear chronically ill. HEENT: Extraocular movements intact, sclerae nonicteric. Ears intact. Lungs are clear. Heart: Regular. Abdomen: Soft, nontender. Bowel sounds present. Extremities with trace edema with chronic venous stasis changes. He does have generalized weakness. Hemodialysis catheter present in the right anterior chest wall. IMPRESSION: 1. End-stage renal disease, on chronic hemodialysis - he will continue with his current dialysis schedule. Once again, he apparently is scheduled to undergo AV fistula placement soon. 2. Recent acute hypoxic respiratory failure secondary to influenza A and septic shock - he required prolonged intubation and mechanical ventilation with subsequent tracheostomy and PEG tube placement with full recovery. Continue to monitor respiratory status closely. 3. Chronic diastolic heart failure - he appears to be compensated. Monitor his fluid balance closely. 4. Diabetes mellitus, type 2 - maintain current diabetic regimen. Monitor blood sugars closely and make adjustments as needed. Overall condition prognosis is somewhat guarded. We will obtain baseline labs including CBC and BMP as indicated. Eventual goal is for him to return back to his home situation where he does live with family. DICTATED BY: MD FLAKITO White/Meagan JOB# [id number] cc:Toña Barker Normal [facility] PROGRESSon 07-16-2019 PROGRESS HNO ID: [id number] Author: Diane Chacon) Abdullahi Service: ? Author Type: Physician Yarn Finisher Type: Progress Notes Filed: 07/17/2019 11:59 AM Note Text: [facility] NOTE NAME: CHRISTY MURPHY NO.: [id number] DATE OF SERVICE: 07/16/2019 [facility] DATE OF : 1955 HALFWAY CHART VISIT NOTE CHIEF COMPLAINT: Followup for potential discharge. SUBJECTIVE FINDINGS: The patient was seen in his room at [facility] sitting up in his wheelchair. I remained greater than 6 feet away from him for the evaluation due to the COVID-19 pandemic. The patient is tentatively scheduled for discharge to home on July 17, 2019, where he resides with his . He will be set up with home health, physical and occupational therapy, as well as a nurse and nurse's aide. The patient is tolerating hemodialysis 3 times per week. We are still awaiting removal of his gastrostomy tube. He is eating a regular diet. He was in our facility for additional rehabilitation after a prolonged hospitalization and rehabilitation with influenza A and complications of a multisystem failure including respiratory failure requiring mechanical ventilation. He has been on dialysis, which he continues to tolerate well. He ambulates short distances with the use of a walker. REVIEW OF SYSTEMS: Please see above. MEDICATIONS FOR DISCHARGE ARE FOLLOWS: Levemir 25 units subcu b.i.d., Zofran as needed, atorvastatin 40 mg p.o. at bedtime, amlodipine besylate 5 mg once daily, Tylenol as needed, multivitamin once daily, hydralazine 50 mg p.o. every 8 hours, labetalol 100 mg p.o. b.i.d., Nutrisource Fiber packet 3 times daily, Senna Plus 2 tablets as needed daily, Critic-Aid Clear AF Ointment to buttocks as needed, aspirin 325 mg 2 daily, ferrous sulfate 325 mg, 1 p.o. b.i.d., Synthroid 100 mcg once daily, vitamin B complex once daily, nitroglycerin sublingual as needed, Effient 5 mg 2 tablets via G-tube daily, doxazosin mesylate 1 mg at bedtime, MiraLax 17 g daily, NovoLog sliding scale coverage, and hydrocortisone cream to both anterior shins. PHYSICAL EXAMINATION: Temperature 98.1, pulse 78, respirations 16, BP 124/58, pulse oximetry 98%. Examination revealed a mildly obese, middle-aged man sitting up in his wheelchair. He was alert and appropriate. He appeared comfortable. He was not dyspneic or tachypneic. He seemed to be moving all extremities equally. ASSESSMENT AND PLAN: 1. End-stage renal disease, on hemodialysis. Continue management per Nephrology. 2. Coronary artery disease without angina. The patient remains on Effient and aspirin. Have asked our staff to contact his fashion illustrator's office to clarify his aspirin dose. 3. Dysphagia. This has resolved. He will need G-tube removal as an outpatient. 4. Depression. Overall, seems upbeat and positive. This can be followed by his primary care physician, Dr. Alejo. 5. Type 2 diabetes mellitus. Blood sugar well controlled on Levemir. 6. Hypertension. Stable blood pressure on current regimen. 7. Weakness. The patient is stable for discharge to home. He will be set up with home health, physical and occupational therapy, as well as a nurse and nurse's aide. His is there for assistance. He will follow up with his primary care physician, Dr. Alejo, within 1 to 2 weeks of discharge from the facility. He should also follow up with Cardiology in the near future. Greater than 31 minutes spent in the discharge process on this patient. DICTATED BY: Diane Lerner PA-C PG/Meagan JOB# [id number] cc:[facility] PROGRESSon 07-13-2019 PROGRESS HNO ID: [id number] Author: Diane Lerner (Pa) Service: ? Author Type: Physician Yarn Finisher Type: Progress Notes Filed: 07/14/2019 2:18 PM Note Text: [facility] NOTE NAME: CHRISTY MURPHY NO.: [id number] DATE OF SERVICE: 07/13/2019 [facility] DATE OF : 1955 HALFWAY CHART VISIT NOTE CHIEF COMPLAINT: Skilled followup visit for end-stage renal disease, coronary artery disease, and other medical issues. SUBJECTIVE FINDINGS: The patient was seen in his room at [facility] for a skilled followup visit. I remained greater than 6 feet away from him for the evaluation due to the COVID-19 pandemic. The patient relates that he is feeling well. He is ambulating short distances with therapy with the use of a walker. According to the Social Service Department, he may be discharging from the facility later this week depending on insurance. He continues to ask when his G-tube will be removed. He is eating a regular diet. REVIEW OF SYSTEMS: See above. MEDICATIONS: Reviewed in the long-term record. CODE STATUS: Full code. PHYSICAL EXAMINATION: Temperature 98.2, pulse 72, respirations 18, BP 122/61. Examination revealed a mildly obese, middle-aged man sitting up in his bed. He was alert and appropriate. He had no obvious dyspnea or tachypnea and no lower extremity edema. He was moving all extremities equally. ASSESSMENT AND PLAN: 1. End-stage renal disease. Continue hemodialysis and management per Nephrology. 2. Coronary artery disease without angina. Remains on FEN and aspirin. We will ask staff to contact his fashion illustrator's office to clarify the aspirin dose. 3. Dysphagia. This is resolved. We will await G-tube removal. 4. Depression. Overall, seems a bit more upbeat and positive. We will continue to monitor. 5. Type 2 diabetes mellitus. Blood sugar is well controlled on Levemir. 6. Hypertension. Blood pressure stable. 7. Weakness. Continue ongoing intense physical and occupational therapy. DICTATED BY: Diane Lerner PA-C PG/Meagan JOB# [id number] cc:[facility] PROGRESSon 07-09-2019 PROGRESS HNO ID: [id number] Author: Diane Lerner (Pa) Service: ? Author Type: Physician Yarn Finisher Type: Progress Notes Filed: 07/13/2019 10:19 AM Note Text: [facility] NOTE NAME: CHRISTY MURPHY NO.: [id number] DATE OF SERVICE: 07/09/2019 [facility] DATE OF : 1955 CHIEF COMPLAINT: Skilled followup visit for coronary artery disease, renal disease, and other medical issues. SUBJECTIVE FINDINGS: The patient was seen in his room at [facility] for skilled followup visit. I remained greater than 6 feet away from him for the evaluation due to the COVID-19 pandemic. The patient had been refusing heparin as he related that this was uncomfortable and that he was bleeding after administration. He is on longstanding Effient as ordered by Cardiology and has a history of stents. He follows with Dr. Ying in [place]. In addition, his current aspirin dose is at 650 mg p.o. daily. He does seem to be ambulating short distances with assistance with therapy and is starting to improve with his progress. He is tolerating dialysis and following up with Vascular today for possible fistula. He is asking when his G-tube will be removed as he has no further dysphagia and is tolerating a regular diet without issue. He seems more upbeat and positive. Blood sugars have been well controlled as have blood pressures. He hopes to return to home with his in the near future. REVIEW OF SYSTEMS: Please see above. MEDICATIONS: Reviewed in the long-term record. CODE STATUS: Full code. PHYSICAL EXAMINATION: Temperature 98.1, pulse 78, respirations 18, BP 122/61, pulse oximetry 97%. Examination revealed a mildly obese, middle-aged man sitting up in his wheelchair. He was alert and appropriate. He was pleasant and conversant. He had no obvious dyspnea or tachypnea and no significant lower extremity edema. ASSESSMENT AND PLAN: 1. Coronary artery disease without angina. Remains on Effient and aspirin. We will arrange for Cardiology followup and also have staff notify Cardiology to clarify aspirin dose as this does seem somewhat high. 2. End-stage renal disease. We will continue hemodialysis and management per Nephrology. 3. Dysphagia. This is resolved. Awaiting G-tube removal. 4. Depression. Overall seems more upbeat and positive. He is not on any medications at this time. We will continue to monitor. 5. Type 2 diabetes mellitus. We will continue Levemir at current dose. 6. Hypertension. Blood pressure is stable. 7. Weakness. Continue ongoing intense physical and occupational therapy. The patient's heparin will be discontinued as he is ambulating more and at this point, continues to refuse the medication. DICTATED BY: Diane Lerner PA-C PG/Meagan JOB# [id number] cc:[facility] PROGRESSon 07-01-2019 PROGRESS HNO ID: [id number] Author: Diane Chacon) Abdullahi Service: ? Author Type: Physician Yarn Finisher Type: Progress Notes Filed: 07/03/2019 7:47 AM Note Text: [facility] NOTE NAME: CHRISTY MURPHY NO.: [id number] DATE OF SERVICE: 07/01/2019 [facility] DATE OF : 1955 HALFWAY CHART VISIT NOTE CHIEF COMPLAINT: Venous stasis of the legs, weakness, and other medical issues. SUBJECTIVE FINDINGS: The patient was seen in his room at [facility] for skilled followup visit. I remained greater than 6 feet away from the patient for the evaluation. Staff noted that the patient was complaining of pruritus to both legs. He has significant venous stasis changes. He has been a bit more motivated and is participating more with therapy, however, still remains a maximum of two assistants for transfers. It was recommended that he start on an antidepressant last week; however, he refused to take this. He continues to work with hemodialysis 3 times weekly. Blood sugars are well controlled and recent TSH was in normal range. The patient has had no problems with blood pressure control. Today, he had no complaints. REVIEW OF SYSTEMS: See above. MEDICATIONS: Reviewed in the long-term record. CODE STATUS: Full code. PHYSICAL EXAMINATION: Temperature 98.6, pulse 70, respirations 18, BP 112/56, pulse oximetry 96%. Examination revealed an obese, middle-aged man sitting up on the commode. He was alert and appropriate. His affect was somewhat flat. He has significant venous stasis pigmentation changes of both legs with some mild dry skin on both anterior shins. ASSESSMENT AND PLAN: 1. Venous stasis secondary to venous insufficiency. We will apply topical hydrocortisone cream for the pruritus. 2. Significant weakness. The patient continues to work with physical and occupational therapy. He is improving in his motivation and seems to be making a bit more progress. For now, we will continue subcutaneous heparin and monitor. 3. Depression. The patient refuses Zoloft. We will continue to monitor. 4. End-stage renal disease. Continue hemodialysis and management per Nephrology. 5. Type 2 diabetes mellitus. Continue Levemir at current dose. 6. Hypothyroidism. Continue Synthroid. 7. Hypertension. Blood pressure stable on amlodipine, hydralazine, and labetalol. We will continue to monitor. DICTATED BY: Diane Lerner PA-C PG/Meagan JOB# [id number] cc:[facility] PROGRESSon 06-26-2019 PROGRESS HNO ID: [id number] Author: Diane Lerner (Pa) Service: ? Author Type: Physician Yarn Finisher Type: Progress Notes Filed: 06/29/2019 12:17 PM Note Text: [facility] NOTE NAME: CHRISTY MURPHY NO.: [id number] DATE OF SERVICE: 06/26/2019 [facility] DATE OF : 1955 HALFWAY CHART VISIT NOTE CHIEF COMPLAINT: Followup for renal disease, type 2 diabetes mellitus, and other medical issues. SUBJECTIVE FINDINGS: The patient was seen in his room sitting up in his wheelchair at [facility]. I remained greater than 6 feet away from the patient for the evaluation. The patient had no complaints today. According to the nursing staff, his motivation and participating with therapy and care has been somewhat poor. They relate that over the last weekend he refused to get out of bed. He seems somewhat flat and depressed. He does seem to be eating and drinking well and weights have been stable. There are no documented fever or chills. Blood sugars overall have been well controlled. 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 She believes that the patient is depressed as he is realizing the extent of his illness and the fact that he may not be able to return to his work environment. She relates that he has always been a very calm, logical person who often did not show excessive emotion. He has not had prior history of depression. REVIEW OF SYSTEMS: See above. MEDICATIONS: Reviewed in the long-term record. CODE STATUS: Full code. PHYSICAL EXAMINATION: Temperature 98.2, pulse 72, respirations 16, BP 127/68, pulse oximetry 96%. Examination revealed an obese, middle-aged man sitting up in his wheelchair. He was alert and appropriate to the situation. His affect was somewhat flat. Hemodialysis catheter was present in the right anterior chest. The patient appeared comfortable. He was moving all extremities. ASSESSMENT AND PLAN: 1. Depression. Discussed this at length with his . At this point, we are not bringing in the outside psychologist due to the COVID-19 pandemic; however, when able, I believe the patient could benefit from cognitive behavioral therapy. In the meantime, we will initiate treatment with Zoloft and titrate dose accordingly. Discussed with his that this will take some time to show improvement. We will continue to monitor closely. The patient continues to work with speech therapy for his cognition. It remains unclear as if this is genuinely impaired. 2. End-stage renal disease. Continue management per Nephrology. 3. Type 2 diabetes mellitus. Continue Levemir at current dose. 4. Hypothyroidism. We will follow up with TSH on June 29, 2019. 5. Adult respiratory distress syndrome secondary to influenza A with sepsis. The patient has completely recovered and is off oxygen altogether. 6. Hypertension. Blood pressure stable on amlodipine, hydralazine, and labetalol. 7. Significant weakness. The patient will need ongoing intense physical and occupational therapy. His progress has been somewhat slow. We will monitor. DICTATED BY: Diane Lerner PA-C PG/Acjanis JOB# [id number] cc:[facility] PROGRESSon 06-18-2019 PROGRESS HNO ID: [id number] Author: Diane Lerner (Pa) Service: ? Author Type: Physician Yarn Finisher Type: Progress Notes Filed: 06/19/2019 1:37 PM Note Text: [facility] NOTE NAME: CHRISTY MURPHY NO.: [id number] DATE OF SERVICE: 06/18/2019 [facility] DATE OF : 1955 HALFWAY CHART VISIT NOTE CHIEF COMPLAINT: Follow up for end-stage renal disease, type 2 diabetes mellitus, weakness, and other medical issues. SUBJECTIVE FINDINGS: The patient was seen in his room sitting up in his wheelchair at [facility]. I remained greater than 6 feet away from the patient for the evaluation. The patient had no complaints today. His blood sugars have overall been well controlled in the low 100 range. He continues to tolerate hemodialysis without issue. He seems to be eating and drinking well and is not utilizing his G-tube. There was some concern by the staff today about green drainage around the feeding tube site. There are no documented fever or chills. The patient's blood pressures have been well controlled. He denies any chest pain, shortness of breath, or dyspnea. REVIEW OF SYSTEMS: Please see above. The patient's progress with therapy is slow. The does staff is utilizing a Danyel lift for transfers. MEDICATIONS: Reviewed in the long-term record. CODE STATUS: Full code. PHYSICAL EXAMINATION: Temp 98, pulse 74, respirations 16, BP 117/56. Examination revealed an obese middle-aged man sitting up in his wheelchair. He was alert and appropriate to the situation; however, speech was somewhat slow. His affect was somewhat flat. His memory seemed poor. He was not tachypneic and overall appeared comfortable. Hemodialysis catheter was present in the right anterior chest. ASSESSMENT AND PLAN: 1. Mild cognitive impairment. We will ask speech therapy to evaluate and treat the patient. 2. Type 2 diabetes mellitus. We will continue Levemir and monitor closely. 3. End-stage renal disease. Continue management per nephrology. 4. Adult respiratory distress syndrome related to influenza A with sepsis. The patient has recovered from that standpoint and is off oxygen. 5. Hypertension. Continue amlodipine, hydralazine, and labetalol. 6. Dysphagia. This has resolved. The patient was reexamined and had no drainage around the G-tube site whatsoever. It appears that the drainage viewed by staff was gastric contents coming from the feeding tube port itself. 7. Hypothyroidism. Continue Synthroid. 8. Weakness. Continue ongoing intense physical and occupational therapy. DICTATED BY: Diane Lerner PA-C PG/Meagan JOB# [id number] cc:[facility] PROGRESSon 06-16-2019 PROGRESS HNO ID: [id number] Author: Diane Chacon) Abdullahi Service: ? Author Type: Physician Yarn Finisher Type: Progress Notes Filed: 06/17/2019 3:57 PM Note Text: [facility] NOTE NAME: CHRISTY MURPHY NO.: [id number] DATE OF SERVICE: 06/16/2019 [facility] DATE OF : 1955 CHIEF COMPLAINT: Skilled followup visit for type 2 diabetes mellitus, renal disease, and other medical issues. SUBJECTIVE FINDINGS: The patient was seen in his room lying in bed at [facility]. I remained greater than 6 feet away from the patient for the evaluation. The patient presently had no complaints or concerns for me. Nursing staff noted that his blood sugars have been well controlled in the low 100 range. They have not been administering his mealtime insulin, which was ordered as 20 units of NovoLog with each meal. He continues to tolerate hemodialysis without issue. He was admitted to the facility for ongoing intense physical and occupational therapy. He is eating and drinking well and at this point is on a regular diet. He has a G-tube; however, this will likely be able to be removed as he is not currently using it for feeding. He is not having any further dysphagia. Blood pressures have overall been well controlled. He is scheduled for laboratory work on June 18, 2019. REVIEW OF SYSTEMS: Please see above. MEDICATIONS: Reviewed in the long-term record. CODE STATUS: Full code. PHYSICAL EXAMINATION: Temperature 98.2, pulse 75, respirations 16, BP 108/55, pulse oximetry 96%. Examination revealed an obese, [id number]-gmizxhoue male lying in bed. He was in no distress and appeared comfortable. His affect was flat. There was no obvious tachypnea or wheezing. Lower extremities were not edematous. The patient appeared to be moving all extremities well. ASSESSMENT AND PLAN: 1. Type 2 diabetes mellitus. We will discontinue mealtime NovoLog. We will continue Levemir twice daily as ordered as well as NovoLog sliding scale coverage. 2. End-stage renal disease on hemodialysis. Continue management per Nephrology. 3. Acute respiratory distress syndrome related to recent influenza A with sepsis. The patient has recovered well. He is off oxygen. We will continue to follow. 4. Hypertension. Continue amlodipine, hydralazine, and labetalol. 5. Dysphagia. This has resolved. We will make arrangements for G-tube removal once pandemic has resolved. 6. Hypothyroidism. Continue Synthroid. 7. Weakness. Continue ongoing intensive physical and occupational therapy. DICTATED BY: Diane Lerner PA-C PG/Meagan JOB# [id number] cc:[facility] PROGRESSon 06-15-2019 PROGRESS HNO ID: [id number] Author: Saad Ahumada Service: ? Author Type: Physician Type: Progress Notes Filed: 06/18/2019 4:17 PM Note Text: [facility] NOTE NAME: CHRISTY MURPHY NO.: [id number] DATE OF SERVICE: 06/15/2019 [facility] DATE OF : 1955 NEW PATIENT HISTORY AND PHYSICAL HISTORY OF PRESENT ILLNESS: The patient is a 63-year-old male who was admitted to us from [facility] with the diagnosis of acute hypoxemic respiratory failure requiring prolonged intubation and mechanical ventilation with subsequent tracheostomy and PEG tube placement due to influenza A with septic shock, acute kidney injury secondary to acute tubular necrosis secondary to sepsis leading to end-stage renal disease requiring new-onset hemodialysis, chronic diastolic congestive heart failure, electrolyte imbalance with hypophosphatemia, diabetes mellitus type 2, chronic anemia secondary to chronic kidney disease, coronary artery disease with previous remote myocardial infarction and stenting, severe protein-calorie malnutrition, obstructive sleep apnea, obesity hypoventilation syndrome, hyponatremia, past history of deep venous thrombosis with chronic venous insufficiency in the lower extremities, remote cholecystectomy and abdominal hernia repair, and severe generalized weakness and debility. He initially presented to the hospital with fever and increasing malaise. At [facility], he was treated for congestive heart failure exacerbation and bacterial pneumonia with antibiotics. However, his condition worsened requiring intubation, after which he was transferred to [facility] where he was diagnosed with influenza A pneumonia with sepsis complicated by ARDS. He did require prolonged intubation and mechanical ventilation with subsequent tracheostomy and PEG tube placement. He did receive broad-spectrum IV antibiotic therapy as well as Tamiflu. However, his renal function worsened and he eventually required new-onset hemodialysis. He was then [facility] for continued aggressive medical management and to be weaned off the ventilator which was subsequently successful. He was eventually decannulated. He was followed by multiple specialists. His condition was stabilized and improved and he is now admitted to our facility for continued therapy prior to returning back to his home situation where he lives with family. REVIEW OF SYSTEMS: He is currently sitting up in his room in his wheelchair. He is alert and responsive. He states he is feeling much better but is still quite weak. He denies being short of breath. He denied any prior pulmonary symptoms prior to his current illness. He has had no change in his vision or hearing. He states he did experience a heart attack in the past and is status post coronary stenting. Also chronic diastolic heart failure. His appetite has been slowly improving. He denies any difficulty swallowing. He still does have a gastrostomy feeding tube present. No history of bleeding ulcers, hepatitis, or melena. No prior strokes or seizures. He is a diabetic, type 2, with diabetic neuropathy. He has also had venous stasis edema with venous ulcers and venous insufficiency with a past history of DVT for which he had been on Coumadin therapy. FAMILY HISTORY: Significant for heart disease as well as diabetes. SOCIAL/FUNCTIONAL HISTORY: He denies smoking or alcohol abuse. 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 Once again, he has been living at home with family. MEDICATIONS: Amlodipine 5 mg daily, aspirin 325 mg 2 tablets daily, atorvastatin 40 mg at bedtime, Caffeine 100 mg daily, Centrum multivitamin daily, doxazosin 1 mg daily, Effient 5 mg daily, ferrous sulfate 325 mg b.i.d., heparin 5000 units subcutaneous q.8 hours, hydralazine 50 mg every 8 hours, labetalol 100 mg b.i.d., Levemir insulin 25 units subcutaneous daily, NovoLog insulin 20 units subcutaneous with meals, NovoLog insulin sliding scale coverage, Synthroid 100 mcg daily for hypothyroidism, vitamin B complex daily, and Tylenol p.r.n. ALLERGIES: BRILINTA. EXAMINATION: Afebrile, vital signs stable. He is in no distress. He appears chronically ill. HEENT: Extraocular movements intact, sclerae nonicteric. Ears intact. Lungs: Clear with decreased breath sounds in the bases. Heart sounds regular. Abdomen: Soft, nontender. Bowel sounds present. Gastrostomy feeding tube present. Extremities with trace edema with chronic venous insufficiency changes. He does have generalized weakness. IMPRESSION: 1. Acute hypoxic respiratory failure requiring prolonged intubation and mechanical ventilation with subsequent tracheostomy due to influenza A with septic shock - we will continue to monitor respiratory status closely. He has been successfully weaned off the ventilator and decannulated. We will progress current treatments and supplemental oxygen as needed. 2. Influenza A pneumonia - resolved. He did complete a course of Tamiflu. 3. Acute kidney injury on top of chronic kidney disease resulting in end-stage renal failure with new-onset hemodialysis - we will continue with hemodialysis 3 times a week. 4. Chronic diastolic heart failure - he appears to be compensated at this time. Monitor his fluid balance closely. 5. Diabetes mellitus, type 2 - maintain current diabetic regimen. Monitor blood sugar closely and make adjustments as needed. 6. Functional assessment - he does have significant generalized weakness and debility. He will be receiving rehab services for overall strengthening and conditioning. Overall condition prognosis is quite guarded. We will obtain followup labs including CBC and BMP. Eventual goal is for him to return back to his home situation if at all possible. DICTATED BY: MD FLAKITO White/Meagan JOB# [id number] cc:Toña [facility] Normal [facility] Operative Reporton 0 Operative Report MR#: [id number] [facility] Pt. Name: Corbin Murphy Room #: D5 Discharge Date: Birthdate: 1955 OPERATIVE REPORT DATE OF SURGERY: 06/04/2019 SURGEON: Laly Amaro MD PREOPERATIVE DIAGNOSIS: End-stage renal disease, on hemodialysis. POSTOPERATIVE DIAGNOSIS: End-stage renal disease, on hemodialysis. PROCEDURES DONE: 1. Ultrasound-guided access of the right IJ. 2. Right IJ PermCath placement. 3. Pre-existing right IJ Jai catheter removal. ANESTHESIA: Conscious sedation was local under my direct supervision. Total sedation time was 9 minute. Total 1 mg of Versed and 25 mcg of fentanyl were given. ESTIMATED BLOOD LOSS: Minimal. INDICATION FOR PROCEDURE: The patient is a 63-year-old male with end-stage renal disease on hemodialysis, who presented for exchange for a tunneled dialysis catheter. Indication, alternatives, risks of the procedure discussed. The patient agreed to proceed. DETAIL OF PROCEDURE: After proper identification, the patient was consented and brought to the optical laboratory mechanic. The patient was placed in supine position. Preoperative antibiotics were given. The patient was prepped and draped in sterile surgical fashion. Time-out was conducted. We started the procedure by getting ultrasound-guided access to the right IJ using an 18-gauge needle. A J-wire was passed through the needle and needle was exchanged for a dilator and then another incision was made in the right upper chest and a tunnel was created between the 2 incision using the tunneler, and the tubing of the PermCath size 14.5-Italian x 24 cm was tunneled starting with incision of the right upper chest and then the dilator in the IJ puncture site in the right neck was exchanged for a peel-away sheath under fluoroscopy guidance. The dilator of the peel-away sheath as well as the wire were removed and the tubing of the PermCath was threaded through the peel-away sheath as I was pulling out the peel-away sheath. At the end, the location of the tip of the PermCath was at the junction of the SVC of the right atrium. Both ports of the PermCath were flushing and aspirating easily. Both ports were locked with heparin. The incision of the right neck was closed using 4-0 Monocryl and the PermCath was affixed to the underlying skin using 3-0 nylon. The total fluoro time was 18 seconds and the total fluoro dose was 2.11 mGy. On completion of x-ray, no evidence of pneumothorax. The pre-existing temporary dialysis catheter was removed from the right IJ. Pressure was held for 5 minute with good hemostasis. The patient tolerated the procedure very well. Instrument and sponge count were correct at the end of the procedure. Electronically Signed by: Laly Amaro MD 06/10/2019 02:12 P Laly Amaro MD Date Dict: 06/04/2019/12:59 P/Laly Amaro MD Date Trans: 06/04/2019 01:35 P/mmo [id number] cc: Nav Alejo M.D. [address] [place] [address] [facility] Vital Signs Date Time Vital Sign Value Performing Clinician Facility 01-31-2023 09:47-0500 Body height 177.8 cm Corbin Ying DO Work Phone: [facility] 01-31-2023 09:47-0500 Body mass index (BMI) [Ratio] 29.41 kg/m2 Corbin Ying DO Work Phone: [facility] 01-31-2023 09:47-0500 Body weight 92.99 kg Corbin Ying DO Work Phone: [facility] 01-31-2023 09:47-0500 Diastolic blood pressure 62 mm[Hg] Corbin Ying DO Work Phone: [facility] 01-31-2023 09:47-0500 Heart rate 76 /min Corbin Ying DO Work Phone: [facility] 01-31-2023 09:47-0500 Systolic blood pressure 122 mm[Hg] Corbin Ying DO Work Phone: [facility] 08-09-2022 14:15-0400 Body height 180.34 cm Alfredo Acosta Other [facility] Other 08-09-2022 14:15-0400 Body mass index (BMI) [Ratio] 28.73 kg/m2 Alfredo Acosta Other [facility] Other 08-09-2022 14:15-0400 Body temperature 97.3 [degF] Alfredo Acosta Other [facility] Other 08-09-2022 14:15-0400 Body weight 93.44 kg Alfredo Acosta Other [facility] [employer] Other 08-09-2022 14:15-0400 Diastolic blood pressure 62 mm[Hg] Alfredo Acosta Other [facility] Other 08-09-2022 14:15-0400 Systolic blood pressure 99 mm[Hg] Alfredo Acosta Other [facility] [employer] Other 07-30-2022 09:03-0400 Blood Pressure Location [facility] 07-30-2022 09:03-0400 Diastolic blood pressure 60 mm[Hg] Mohamed Dorian [facility] 07-30-2022 09:03-0400 Heart rate 77 /min Mohamed Dorian [facility] 07-30-2022 09:03-0400 SaO2% (BldA) [Mass fraction] 98 % Mohamed Dorian [facility] 07-30-2022 09:03-0400 Systolic blood pressure 110 mm[Hg] Mohamed Dorian [facility] 07-12-2022 13:24-0400 Blood Pressure Location Mohamed Dorian [facility] 07-12-2022 13:24-0400 Diastolic blood pressure 62 mm[Hg] Mohamed Dorian [facility] 07-12-2022 13:24-0400 Heart rate 94 /min Mohamed Doiran [facility] 07-12-2022 13:24-0400 SaO2% (BldA) [Mass fraction] 97 % Mohamed Dorian [facility] 07-12-2022 13:24-0400 Systolic blood pressure 94 mm[Hg] Mohamed Dorian [facility] 07-09-2022 19:00-0400 Diastolic blood pressure 65 mm[Hg] [facility] 07-09-2022 19:00-0400 Heart rate 74 /min [facility] 07-09-2022 19:00-0400 Mean blood pressure 80 mm[Hg] [facility] 07-09-2022 19:00-0400 Respiratory rate 17 /min [facility] 07-09-2022 19:00-0400 Systolic blood pressure 110 mm[Hg] [facility] 07-09-2022 18:30-0400 Heart rate 75 /min [facility] 07-09-2022 18:30-0400 Respiratory rate 23 /min [facility] 07-09-2022 18:00-0400 Diastolic blood pressure 60 mm[Hg] [facility] 07-09-2022 18:00-0400 Heart rate 79 /min [facility] 07-09-2022 18:00-0400 Mean blood pressure 73 mm[Hg] [facility] 07-09-2022 18:00-0400 Respiratory rate 11 /min [facility] 07-09-2022 18:00-0400 SaO2% (BldA) [Mass fraction] 96 % [facility] 07-09-2022 18:00-0400 Systolic blood pressure 98 mm[Hg] [facility] 07-09-2022 17:30-0400 Diastolic blood pressure 55 mm[Hg] [facility] 07-09-2022 17:30-0400 Mean blood pressure 67 mm[Hg] [facility] 07-09-2022 17:30-0400 SaO2% (BldA) [Mass fraction] 98 % [facility] 07-09-2022 17:30-0400 Systolic blood pressure 90 mm[Hg] [facility] 07-09-2022 17:25-0400 Body temperature 98.06 [degF] [facility] 07-09-2022 17:25-0400 Heart rate 95 /min [facility] 07-09-2022 17:25-0400 Respiratory rate 16 /min [facility] 07-09-2022 17:25-0400 SaO2% (BldA) [Mass fraction] 98 % [facility] 03-15-2022 11:05-0500 Blood Pressure Location Evelyn Harveyan [facility] 03-15-2022 11:05-0500 Diastolic blood pressure 50 mm[Hg] Evelyn Dorian [facility] 03-15-2022 11:05-0500 Heart rate 75 /min Evelyn Harveyan [facility] 03-15-2022 11:05-0500 SaO2% (BldA) [Mass fraction] 98 % Evelyn Harveyan [facility] 03-15-2022 11:05-0500 Systolic blood pressure 90 mm[Hg] Evelyn Dorian [facility] 01-11-2022 11:29-0500 Body height 177.8 cm Nav [employer] Work Phone: [facility] [employer] 250 DO Work Phone: 01-11-2022 11:29-0500 Body mass index (BMI) [Ratio] 32.71 kg/m2 [employer] Work Phone: [facility] [employer] 250 DO Work Phone: 01-11-2022 11:29-0500 Body surface area Derived from formula 2.21 m2 Nav Falcon Hoy Work Phone: [facility] 250 DO Work Phone: 01-11-2022 11:29-0500 Body weight 103.42 kg Nav Falcon Hoy Work Phone: [facility] 250 DO Work Phone: 01-11-2022 11:29-0500 Diastolic blood pressure 60 mm[Hg] Nav Falcon Hoy Work Phone: [facility] 250 DO Work Phone: 01-11-2022 11:29-0500 Heart rate 80 /min Nav Falcon Hoy Work Phone: [facility] DO Work Phone: 01-11-2022 11:29-0500 Systolic blood pressure 98 mm[Hg] Nav Falcon Hoy Work Phone: [facility] 250 DO Work Phone: 11-02-2021 12:32-0400 Blood Pressure Location Evelyn Alarcon [facility] 11-02-2021 12:32-0400 Body temperature 97.7 [degF] Evelyn Alarcon [facility] 11-02-2021 12:32-0400 Diastolic blood pressure 63 mm[Hg] Evelyn Harveyan [facility] 11-02-2021 12:32-0400 Heart rate 72 /min Evelyn Harveyan [facility] 11-02-2021 12:32-0400 Respiratory rate 16 /min Evelyn Harveyan [facility] 11-02-2021 12:32-0400 SaO2% (BldA) [Mass fraction] 96 % Evelyn Harveyan [facility] 09-22-2022 12:32-0400 Systolic blood pressure 105 mm[Hg] Evelyn Alarcon [facility] 10-26-2021 14:53-0400 Blood Pressure Location Evelyn Alarcon [facility] 10-26-2021 14:53-0400 Diastolic blood pressure 66 mm[Hg] Evelyn Alarcon [facility] 10-26-2021 14:53-0400 Heart rate 82 /min Evelyn Alarcon [facility] 10-26-2021 14:53-0400 SaO2% (BldA) [Mass fraction] 97 % Evelyn Alarcon [facility] 10-26-2021 14:53-0400 Systolic blood pressure 107 mm[Hg] Evelyn Alarcon [facility] 07-13-2021 11:47-0400 Body height 177.8 cm Nav Falcon [employer]ticy Work Phone: [facility] 250 DO Work Phone: 07-13-2021 11:47-0400 Body mass index (BMI) [Ratio] 32.14 kg/m2 Nav Falcon Lizticy Work Phone: [facility] [employer] 250 DO Work Phone: 07-13-2021 11:47-0400 Body surface area Derived from formula 2.19 m2 Nav Falcon Lizticy Work Phone: [facility] 250 DO Work Phone: 07-13-2021 11:47-0400 Body weight 101.61 kg Nav Falcon Lizticy Work Phone: [facility] 250 DO Work Phone: 07-13-2021 11:47-0400 Diastolic blood pressure 76 mm[Hg] Nav Falcon Hoy Work Phone: [facility] 250 DO Work Phone: 07-13-2021 11:47-0400 Heart rate 66 /min Nav Alejo Work Phone: [facility] 250 DO Work Phone: 07-13-2021 11:47-0400 Systolic blood pressure 112 mm[Hg] Nav Alejo Work Phone: [facility] DO Work Phone: Encounters Encounter Date Encounter Type Care Provider Facility Start: 01-31-2023 End: 01-31-2023 Office outpatient visit 15 minutes Corbin Cristo Stepan DO Work Phone: [facility] Comment on above: Arteriosclerotic hea rt disease; S/P PTCA (percutaneous transluminal coronary angioplasty); ESRD (end stage renal disease) on dialysis ([facility]); Diabetes mellitus of other type without complication, unspecified whether manager terminal insulin use ([facility]); Essential hypertension; Hyperlipidemia, unspecified hyperlipidemia type; Never smoked any substance Start: 01-18-2023 Encounter for other preprocedural examination [facility] Start: 01-18-2023 End: 01-18-2023 ambulatory [facility] Start: 01-16-2023 Encounter for other preprocedural examination [facility] Start: 01-15-2023 End: 01-15-2023 ambulatory [facility] Start: 01-09-2023 End: 01-10-[address] [facility] Start: 10-16-[address] [facility] Start: 10-02-2022 End: 10-02-2022 ambulatory [facility] Start: 08-16-2022 End: 08-17-2022 ambulatory Evelyn Alarcon Facility:[facility] Start: 08-16-2022 End: 08-16-2022 Patient encounter procedure Evelyn Alarcon [facility] Start: 08-15-2022 Rx Renewal Nav Alejo Work Phone: [facility] 250 DO Work Phone: Start: 08-09-2022 End: 08-09-2022 ambulatory Alfredo Acosta Other [facility] [employer] Other Start: 08-09-2022 Office outpatient vi sit 25 minutes Alfredo Karla [facility] Start: 07-30-2022 End: 07-31-2022 ambulatory Evelyn Alarcon Facility:[facility] Start: 07-30-2022 End: 07-30-2022 Patient encounter procedure Evelyn Alarcon [facility] Start: 07-18-[address] Nav Alejo Facility:[id number] Start: 07-12-2022 End: 07-20-2022 Evaluation and management of inpatient Fuentes Rodriguez Facility:[facility] Start: 07-12-2022 End: 07-13-2022 ambulatory Evelyn Alarcon Facility:[facility] Start: 07-12-2022 End: 07-17-2022 Pre-admission assessment Evelyn Alarcon [facility] Start: 07-12-2022 End: 07-12-2022 Patient encounter procedure Evelyn Alarcon [facility] Start: 07-09-2022 End: 07-09-2022 Emergency department patient visit Adam Anjum Lenard Facility:[facility] Start: 07-09-2022 End: 07-09-2022 Emergency department patient visit Adam Weinberg [facility] Start: 07-02-2022 End: 07-03-2022 ambulatory Evelyn Alarcon Facility:[facility] Start: 06-29-2022 End: 06-29-2022 Emergency department patient visit Reji Azar Facility:[facility] Start: 06-26-[address] NAV ALEJO . Facili ty:[facility] Start: 06-05-2022 End: 06-06-[address] NAV ALEJO . Facility: Start: 05-17-2022 ambulatory UNKNOWN PROVIDER Facili ty:[facility] Start: 05-09-2022 End: 05-09-[address] NAV ALEJO . Facility:[facility] Start: 05-08-2022 End: 05-09-2022 ambulatory LAUREN SCHWARZ Facility:[facility] Start: 04-12-2022 End: 04-13-2022 ambulatory LEANNE HUIZAR Facility:[facility] Start: 03-20-2022 End: 03-21-2022 [facility] Start: 03-15-2022 End: 03-15-2022 ambulatory Evelyn HerminiaElodia Dorian Facility:[facility] Start: 03-15-2022 End: 03-16-2022 ambulatory ASHOK ALARCON Facility:[facility] Start: 03-15-2022 End: 03-15-2022 Admission to same day surgery center Noelkeenan HopeElodia Dorian [facility] Start: 03-15-2022 End: 03-16-2022 ambulatory Evelyn HerminiaElodia Dorian Facility:[facility] Start: 03-15-2022 End: 03-15-2022 Patient encounter procedure MARIELAPJ Vasu ALARCON [facility] Start: 03-15-2022 End: 03-15-2022 Patient encounter procedure Evelyn HerminiaElodia Alarcon [facility] Start: 03-06-2022 End: 03-07-2022 ambulatory LEANNE HUIZAR Facility: Start: 02-27-2022 End: 02-28-[address] NAV Clifton Facility:[facility] Start: 02-15-2022 End: 02-16-2022 ambulatory NATHEN LUCIA Facility:[facility] Start: 01-11-2022 End: 01-11-[address] NAV ALEJO . Facility: Start: 01-11-2022 Office outpatient vi sit 15 minutes Nav Alejo Work Phone: [facility] 250 DO Work Phone: Start: 01-11-[address] Corbin Ying Facility: Start: 11-02-2021 End: 11-02-2021 ambulatory Evelyn Alarcon Facility:[facility] Start: 11-02-2021 End: 11-02-2021 Admission to same day surgery center Evelyn HerminiaElodia Alarcon [facility] Start: 10-26-2021 End: 10-27-2021 ambulatory Evelyn Alarcon Facility:[facility] Start: 10-26-2021 End: 10-26-2021 Patient encounter procedure Evelyn HerminiaElodia Alarcon [facility] Start: 10-25-2021 Rx Renewal Nav Alejo Work Phone: [facility] DO Work Phone: Start: 08-28-2021 End: 08-28-2021 ambulatory NYLA MOTA . Facility: Start: 07-13-2021 Office outpatient vi sit 15 minutes Nav Duronisaias Work Phone: [facility] 250 DO Work Phone: Start: 06-04-2019 End: 06-05-2019 Patient encounter procedure NAV ALEJO Facility:[facility] Procedures Date Procedure Procedure Detail Performing Clinician Start: 07-16-2022 Arteriovenous fistul a (morphologic abnormality) Evelyn Alarcon Start: 07-02-2022 Insertion of hemodia lysis catheter Adam Weinberg Start: 03-15-2022 Fistulography with contrast Evelyn Alarcon Start: 11-02-2021 Fluoroscopic fistulography Evelyn Alarcon Start: 08-04-2020 Fistulography with contrast Evelyn Alarcon Start: 07-07-2020 Removal of catheter Noel Alarcon Comment on above: removal of hemodialy sis catheter removal of hemodialy sis catheter Start: 06-16-2020 Coagulation factor X I (substance) Evelyn Alarcon Comment on above: ELECTRONIC EQUIPMENT REPAIRMEN of Left Fistula ELECTRONIC EQUIPMENT REPAIRMEN of Left Fistula Start: 03-31-2020 Arteriovenous fistulization Evelyn Alarcon Start: 08-06-2019 AV fistula recircula tion (observable entity) Evelyn Alarcon Comment on above: creation of av fistu la of left arm. creation of av fistu la of left arm. Cardiac catheterization Enoch Alejo Work Phone: Cholecystectomy Nav Duron y Work Phone: Cholecystectomy Evelyn Davis n Colonoscopy Nav Alejo Work Phone: H/O: tracheostomy Evelyn Os man Hernia of abdominal cavity (disorder) Evelyn Alarcon History of percutane ous transluminal coronary angioplasty History of PTCA Nav Alejo Work Phone: Placement of stent i n cardiac conduit Evelyn Alarcon Renal lithotripsy Nav Alejo Work Phone: Revision of vascular procedure Nav Alejo Work Phone: Surgical procedure Nav Alejo Work Phone: Comment on above: Sclerosing Multiple Veins By Injection - One Leg; Tonsillectomy and adenoidectomy Nav Alejo Work Phone: Vasectomy Nav Alejo Work Phone: Comment on above: Surgery Vas Deferens Vasectomy; Plan of Treatment Date Care Activity Detail Author Start: 01-31-2023 End: 02-01-2024 Alanine aminotransferase [Enzymatic activity/volume] in Serum or Plasma by With P-5'-P Alanine Aminotransferase Lab Routine Arteriosclerotic heart disease Essential hypertension Hyperlipidemia, unspecified hyperlipidemia type Expected: 01/31/2023 (Approximate), Expires: 02/01/2024 [facility] Service Area Work Phone: Comment on above: Expected: 01/31/2023 (Approximate), Expi res: 02/01/2024 Start: 01-31-2023 End: 02-01-2024 Aspartate aminotransferase [Enzymatic activity/volume] in Serum or Plasma by With P-5'-P Aspartate Aminotransferase Lab Routine Arteriosclerotic heart disease Essential hypertension Hyperlipidemia, unspecified hyperlipidemia type Expected: 01/31/2023 (Approximate), Expires: 02/01/2024 [facility] Work Phone: Comment on above: Expected: 01/31/2023 (Approximate), Expi res: 02/01/2024 Start: 01-31-2023 End: 02-01-2024 Lipid 1996 panel - Serum or Plasma Lipid Panel Lab Routine Arteriosclerotic heart disease Essential hypertension Hyperlipidemia, unspecified hyperlipidemia type Expected: 01/31/2023 (Approximate), Expires: 02/01/2024 [facility] Work Phone: Comment on above: Expected: 01/31/2023 (Approximate), Expi res: 02/01/2024 Start: 01-15-2023 FUV, Provider: Corbin Ying, Status: Phani, Time: 10:10 AM FUV, Provider: Corbin Ying, Status: Phani, Time: 10:10 AM [facility] 250 DO Work Phone: Start: 10-12-2022 Influenza vaccination Influenza Vaccine (#1) [facility] Start: 01-11-2022 FUV, Provider: Corbin Ying, Status: Phani, Time: 11:10 AM FUV, Provider: Corbin Ying, Status: Phani, Time: 11:10 AM [facility] 250 DO Work Phone: Start: 10-20-2021 Echocardiography Echocardiogram [facility] Start: 03-28-2021 COVID-19 Vaccine (4 - Pfizer series) COVID-19 Vaccine (4 - Pfizer series) [facility] Start: 11-21-2005 Zoster Vaccines (1 of 2) Zoster Vaccines (1 of 2) [facility] Start: 11-21-1977 DTaP/Tdap/Td Vaccines (1 - Tdap) DTaP/Tdap/Td Vaccines (1 - Tdap) [facility] Start: 11-21-1974 Urine screening for protein Diabetes: Urine Protein Screening [facility] Start: 11-21-1973 Hepatitis C screening Hepatitis C Screening [facility] Start: 11-21-1965 Diabetic foot examination Diabetes: Foot Exam [facility] Start: 11-21-1965 Glaucoma screening Diabetes: Retinopathy Screening [facility] Start: 11-21-1961 Pneumococcal Vaccine: 65+ Years (1 - PCV) Pneumococcal Vaccine: 65+ Years (1 - PCV) [facility] Start: 1955 Creatinine measurement Creatinine Level [facility] Start: 1955 Hemoglobin A1c measurement Diabetes: Hemoglobin A1C [facility] Start: 1955 Lipid panel Lipid Panel [facility] Start: 1955 Medicare Annual Wellness Visit Medicare Annual Wellness Visit (AWV) [facility] Start: 1955 Potassium measurement Potassium Level [facility] Start: 1955 Screening for malignant neoplasm of colon [facility] Start: 1955 Thyroid stimulating hormone measurement TSH Level [facility] Immunizations Immunization Date Immunization Notes Care Provider Fa mukesh 01-31-2021 Pfizer-BioNTech COVID-19 Vacc 30 MCG/0.3ML Intramuscular Suspension Nav Falcon Lizticisaias Work Phone: [facility] [employer] 250 DO Work Phone: 07-26-2020 Pfizer-BioNTech COVID-19 Vacc 30 MCG/0.3ML Intramuscular Suspension Nav Falcon Oliverioisaias Work Phone: [facility] [employer] 250 DO Work Phone: 07-05-2020 Pfizer-BioNTech COVID-19 Vacc 30 MCG/0.3ML Intramuscular Suspension Nav Alejo Work Phone: [facility] Payers Date Payer Category Payer Medicare MEDICARE MEDICAR E PART A AND B [id number] 2019-Present [address] [place] [address] [id number] 2018 Unknown [id number] 2015 Unknown [id number] 1959 Medicare [id number] 1955 Unknown [id number] [id number]7 1955 Unknown [id number] 2.16.840.1.785755.3.579.2.732 1955 Unknown [id number] 2.16.840.1.805644.3.579.2.593 1955 Unknown [id number] 2.16.840.1.272438.3.579.2.593 1955 Unknown [id number] 2.16.840.1.841581.3.579.2.593 1955 Unknown [id number] 2.16.840.1.373393.3.579.2.593 1955 Unknown [id number] 2.16.840.1.910217.3.579.2.593 1955 Unknown [id number] 2.16.840.1.932737.3.579.2.593 1955 Unknown [id number] 2.16.840.1.700698.3.579.2.593 1955 Unknown [id number] 2.16.840.1.545722.3.579.2.593 1955 Unknown [id number] 2.16.840.1.806960.3.579.2.593 1955 Unknown [id number] 2.16.840.1.601563.3.579.2.593 1955 Unknown [id number] 2.16.840.1.484908.3.579.2.593 1955 Unknown [id number] 2.16.840.1.638309.3.579.2.727 1955 Unknown [id number] 2.16.840.1.005023.3.579.2.727 1955 Unknown [id number] 2.16.840.1.206399.3.579.2.727 1955 Unknown [id number] 2.16.840.1.535455.3.579.2.727 1955 Unknown [id number] 2.16.840.1.003121.3.579.2.727 1955 Unknown [id number] 2.16.840.1.960432.3.579.2.727 1955 Unknown [id number] 2.16.840.1.741198.3.579.2.727 1955 Unknown [id number] 2.16.840.1.436104.3.579.2.727 1955 Unknown [id number] 2.16.840.1.840674.3.579.2.727 1955 Unknown [id number] 2.16.840.1.974703.3.579.2.727 1955 Unknown [id number] 2.16.840.1.390144.3.579.2.727 1955 Unknown [id number] 1955 Unknown [id number] 1955 Unknown [id number] Self-pay Self Pay [id number] Unknown Social History Date Type Detail Facility Tobacco smoking stat [facility] Unknown if ever smoked [facility] Start: 1955 Sex Assigned At Male [facility] Start: 01-31-2023 Caffeine use Caffeine use -Bryant [facility] DO Work Phone: Comment on above: 2-3 times weekly- Co ffee. 1 pop daily; Start: 07-07-2020 End: 01-31-2023 Never smoked tobacco (finding) [facility] Start: 01-31-2023 Male [facility] Tobacco smoking status Never [facility] Tobacco [facility] Comment on above: denies Tobacco smoking status No Smokin g Status Entered [facility] Start: 01-31-2023 Tobacco use and exposure Smokeless tobacco non-user [facility] Work Phone: Start: 01-31-2023 Alcohol intake Lifetime non-d carl (finding) [facility] Work Phone: Start: 1955 Sex Assigned At Not on file [facility] Work Phone: Start: 01-21-2023 End: 01-31-2023 Exposure to SARS-CoV-2 (event) Not sure [facility] Medical Equipment Procedure Code Equipment Code Equipment Origin al Text Equipment Identifier Dates FDA Start: 04-16-2018 CL CLOSURE DEVIC E EXOSEAL 6F FDA Start: 04-16-2018 CL CLOSURE DEVIC E EXOSEAL 6F FDA Start: 04-16-2018 Unknown Unknown 08/04/20 Non Biological Arm L FDA Start: 08-04-2020 Comment on above: 8x40 stent to L AV f istula Unknown Unknown 08/04/20 Non Biological Arm L FDA Start: 08-04-2020 Comment on above: 8x40 stent to L AV f istula Unknown Unknown 08/04/20 Non Biological Arm L FDA Start: 08-04-2020 Comment on above: 8x40 stent to L AV f istula Unknown Unknown 08/04/20 Non Biological Arm L FDA Start: 08-04-2020 Comment on above: 8x40 stent to L AV f istula Unknown Unknown 08/04/20 Non Biological Arm L FDA Start: 08-04-2020 Comment on above: 8x40 stent to L AV f istula Unknown Unknown 08/04/20 Non Biological Arm L FDA Start: 08-04-2020 Comment on above: 8x40 stent to L AV f istula Unknown Unknown 07/02/22 Unknown Other FDA Start: 07-02-2022 Comment on above: left IJ HD cath Unknown Unknown 08/04/20 Non Biological Arm L FDA Start: 08-04-2020 Comment on above: 8x40 stent to L AV f istula Unknown Unknown 07/02/22 Unknown Other FDA Start: 07-02-2022 Comment on above: left IJ HD cath Unknown Unknown 08/04/20 Non Biological Arm L FDA Start: 08-04-2020 Comment on above: 8x40 stent to L AV f istula Unknown Unknown 07/02/22 Unknown Other FDA Start: 07-02-2022 Comment on above: left IJ HD cath Unknown Unknown 08/04/20 Non Biological Arm L FDA Start: 08-04-2020 Comment on above: 8x40 stent to L AV f istula Unknown Unknown 07/02/22 Unknown Other FDA Start: 07-02-2022 Comment on above: left IJ HD cath Unknown Unknown 08/04/20 Non Biological Arm L FDA Start: 08-04-2020 Comment on above: 8x40 stent to L AV f istula Unknown Unknown 07/02/22 Unknown Other FDA Start: 07-02-2022 Comment on above: left IJ HD cath Start: 10-30-2012 Goals Date Patient Goal Desired Activity /State Functional Status Date Assessment Result Facility 07-30-2022 Functional Status No [facility] 07-12-2022 Functional Status No [facility] 07-09-2022 Functional Status N/A [facility] 03-15-2022 Functional Status N/A [facility] 03-15-2022 Functional Status No [facility] 11-02-2021 Functional Status N/A [facility] 10-26-2021 No [facility] Clinical Notes 11-02-2021 to 01-31-2023 Corbin Ying, DO - 01/31/2023 10:00 AM ESTPatient Instructions Note Date & Type Note Facility 01-31-2023 History of Present illness Narrative Subjective Corbin Murphy is a 67 y.o. male Chief Complaint Annual Exam 67-year-old gentleman returns for annual follow-up he is doing well he has no cardiovascular events. He recently underwent revision of his right radial AV fistula with Dr. Alarcon. He has no angina or heart failure. He is off his cardiac medications now on dialysis, with institution of midodrine for hypotension. He has a history of remote PCI/LEATHERSMITH intervention of the LAD in 2018 with normalization of his LV function. 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 Recommendations: Continue current therapies, follow-up within the next year Review of Systems All other systems reviewed and are negative. Visit Vitals BP 122/62 (BP Location: Left arm, Patient Position: Sitting) Pulse 76 Ht 1.778 m (5' 10 ) Wt 93 kg (205 lb) BMI 29.41 kg/m Smoking Status Never BSA 2.14 m Objective Physical Exam Constitutional: Appearance: Normal appearance. He is normal weight. HENT: Nose: Nose normal. Neck: Vascular: No carotid bruit. Cardiovascular: Rate and Rhythm: Normal rate. Pulses: Normal pulses. Heart sounds: Normal heart sounds. Pulmonary: Effort: Pulmonary effort is normal. Abdominal: General: Bowel sounds are normal. Palpations: Abdomen is soft. Genitourinary: Rectum: Normal. Musculoskeletal: General: Normal range of motion. Cervical back: Normal range of motion. Right lower leg: No edema. Left lower leg: No edema. Skin: General: Skin is warm and dry. Neurological: General: No focal deficit present. Mental Status: He is alert. Psychiatric: Mood and Affect: Mood normal. Behavior: Behavior normal. Thought Content: Thought content normal. Judgment: Judgment normal. Current Medications Current Outpatient Medications: acetaminophen (Tylenol) 325 mg tablet, Take 1-2 tablets (325-650 mg) by mouth every 6 hours., Disp: , Rfl: alteplase (Cathflo Activase) 1 mg/mL injection, 2 mL (2 mg) by intra-catheter route if needed., Disp: , Rfl: aspirin 81 mg EC tablet, Take 1 tablet (81 mg) by mouth once daily., Disp: , Rfl: atorvastatin (Lipitor) 40 mg tablet, TAKE 1 TABLET BY MOUTH EVERYDAY AT BEDTIME, Disp: 90 tablet, Rfl: 3 calcium carbonate EX (Tums Extra Strength) 300 mg (750 mg) chewable tablet, Chew 2 tablets (1,500 mg) 3 times a day., Disp: , Rfl: heparin sodium,porcine/NS/PF (heparin in NS) 2 units/mL parenteral solution, Infuse into a venous catheter., Disp: , Rfl: insulin regular human (NovoLIN R FlexPen) 100 unit/mL (3 mL) insulin pen, Inject under the skin. Take as directed per insulin instructions., Disp: , Rfl: levothyroxine (Synthroid, Levoxyl) 100 mcg tablet, Take 1 tablet (100 mcg) by mouth once daily., Disp: , Rfl: lidocaine-prilocaine (Emla) 2.5-2.5 % cream, Apply topically 1 time. As directed, Disp: , Rfl: liothyronine (Cytomel) 5 mcg tablet, 1 tablet (5 mcg) once daily., Disp: , Rfl: midodrine (Proamatine) 10 mg tablet, TAKE 1 TABLET BY MOUTH WITH DIALYSIS NEEDED FOR LOW BLOOD PRESSURE, Disp: , Rfl: multivit-minerals/folic acid (CENTRUM ADULTS ORAL), Take 1 tablet by mouth once daily., Disp: , Rfl: NovoLIN 70/30 U-100 Insulin 100 unit/mL (70-30) injection, INJECT 30 UNITS SUBCUTANEOUSLY IN THE MORNING AND 14 UNITS IN THE EVENING, Disp: , Rfl: oxyCODONE-acetaminophen (Percocet) 5-325 mg tablet, Take 1 tablet by mouth every 6 hours if needed for severe pain (7 - 10)., Disp: , Rfl: paricalcitoL (Zemplar) 2 mcg/mL injection, Infuse 3.5 mL (7 mcg) into a venous catheter 3 (three) times a week., Disp: , Rfl: polyethylene glycol (Glycolax, Miralax) packet, Take 17 g by mouth once daily. As directed, Disp: , Rfl: VITAMIN B COMPLEX ORAL, Take 1 tablet by mouth once daily., Disp: , Rfl: Assessment/Plan 1. Arteriosclerotic heart disease 2. S/P PTCA (percutaneous transluminal coronary angioplasty) 3. ESRD (end stage renal disease) on dialysis ([facility]) 4. Diabetes mellitus of other type without complication, unspecified whether manager terminal insulin use ([facility]) 5. Essential hypertension 6. Hyperlipidemia, unspecified hyperlipidemia type 7. Never smoked any substance documented in this encounter [facility] Work Phone: 01-31-2023 Instructions Sarita Hernandes CMA - 01/31/2023 10:00 AM EST Please bring all medicines, vitamins, and herbal supplements with you when you come to the office. Prescriptions will not be filled unless you are compliant with your follow up appointments or have a follow up appointment scheduled as per instruction of your physician. Refills should be requested at the time of your visit. documented in this encounter [facility] Work Phone: 01-18-2023 Note Patient: Corbin mckeon Procedure Summary Date: 01/18/23 Room / Location: [facility] OPERATING ROOM 06 / [facility] Operating Room Anesthesia Start: 1008 Anesthesia Stop: 1150 Procedure: Right Radial Cephalic Fistula Creation - CPT Codes 98960,62769,22706,79177 (Right: Arm Upper) Diagnosis: End stage renal disease on dialysis ([facility]) Encounter for pre-operative examination (End stage renal disease on dialysis ([facility]) [N18.6, Z99.2]) (Encounter for pre-operative examination [Z01.818]) Surgeons: Evelyn Alarcon MD Responsible Provider: Leanne Chavez MD Anesthesia Type: general ASA Status: 4 Anesthesia Type: general Vitals Value Taken Time BP 133/64 01/18/23 1150 Temp 36.2 01/18/23 1150 Pulse 67 01/18/23 1150 Resp 16 01/18/23 1150 SpO2 99 01/18/23 1150 Anesthesia Post Evaluation Patient location during evaluation: PACU Patient participation: complete - patient participated Level of consciousness: sleepy but conscious Pain management: adequate Airway patency: patent Cardiovascular status: acceptable Respiratory status: acceptable Hydration status: acceptable Patient is hemodynamically stable and is able to be discharged from PACU per anesthesia protocol. No notable events documented. [facility] 01-18-2023 Note Airway Date/Time: 01/18/2023 10:16 AM Urgency: elective Airway not difficult General Information and Staff Patient location during procedure: OR Anesthesiologist: Leanne Chavez MD Resident/ROLL PLUGGER/CAA: Katerin Chung MD Performed: resident/ROLL PLUGGER/CAA Indications and Patient Condition Indications for airway management: anesthesia Spontaneous Ventilation: absent Sedation level: deep Preoxygenated: yes Patient position: sniffing MILS maintained throughout Mask difficulty assessment: 1 - vent by mask Planned trial extubation Final Airway Details Final airway type: endotracheal airway Successful airway: ETT Cuffed: yes Successful intubation technique: video laryngoscopy Facilitating devices/methods: intubating stylet Endotracheal tube insertion site: oral Blade: Archuleta Blade size: #3 ETT size (mm): 7.5 Cormack-Lehane Classification: grade I - full view of glottis Placement verified by: capnometry Measured from: lips ETT to lips (cm): 23 Number of attempts at approach: 1 [facility] 01-18-2023 Note Patient: Corbin mckeon Procedure Information Date/Time: 01/18/23 1000 Procedure: Right Upper Extremity Fistula Creation - CPT Codes 41958,64274,76809,37693 (Right) Location: [facility] OPERATING ROOM 06 / [facility] Operating Room Surgeons: Evelyn Alarcon MD Relevant Problems /Renal (+) End stage renal disease on dialysis (CMS/HCC) Circulatory (+) H/O heart artery stent Clinical information reviewed: Allergies Meds History of cardiac stent in 2019. Now asymptomatic. Has had f/u with cards Renal failure after covid in 21 Physical Exam Airway Mallampati: III TM distance: >3 FB Neck ROM: full Cardiovascular - normal exam Dental - normal exam Pulmonary - normal exam Abdominal - normal exam Anesthesia Plan ASA 4 general The patient is not a current smoker. Patient was not previously instructed to abstain from smoking on day of procedure. Patient did not smoke on day of procedure. intravenous induction Postoperative administration of opioids is intended. Trial extubation is planned. Anesthetic plan and risks discussed with patient. Use of blood products discussed with patient who consented to blood products. Plan discussed with attending. Additional Equipment Requests [facility] 01-18-2023 Note Pre-operative Histor y and Physical Corbin Murphy is a 67 y.o. male who recently underwent left upper extremity fistulogram. He now presents today to the operating room to have a RUE AVF creation. He denies changes in his overall health, medications, or symptoms since his last visit. Denies any fever, chills, chest pain or shortness of breath. Past Medical History: Diagnosis Date Anemia Chronic kidney disease Coronary artery disease Diabetes mellitus ([facility]) Heart disease Hyperlipidemia Hypertension Hypothyroidism Myocardial infarction ([facility]/H[facility]) Peripheral vascular disease ([facility]) Past Surgical History: Procedure Laterality Date AV FISTULA PLACEMENT Left CARDIAC CATHETERIZATION 2 stents placed CHOLECYSTECTOMY HERNIA REPAIR TRACHEOSTOMY TUBE PLACEMENT N/A No family history on file. Social History Tobacco Use Smoking status: Never Passive exposure: Never Smokeless tobacco: Never Substance Use Topics Alcohol use: Not Currently Drug use: Never Review of Systems: General: denies fever or chills Cardiovascular: denies chest pain or increased leg swelling Respiratory: denies productive cough and increased shortness of breath Physical Examination: General: laying in bed in no apparent distress Respiratory: respirations even and unlabored, respiratory rate normal Cardiovascular: heart rate and rhythm regular Assessment and Plan: Corbin Murphy is a 67 y.o. male who presents to the operating room to undergo right upper extremity AVF creation. There have been no changes in his health or medications that changed the pre-operative plan. The informed consent discussion previously held with the patient in the pre-operative holding area today and all questions and concerns were addressed. We will proceed with procedure as planned. Ana Phan MD PGY-4 Vascular Surgery Resident 01/18/23 [facility] 01-15-2023 Note Arteriovenous Fistul a Procedure Note Indications: The patient is a 67 y.o. male with end-stage renal disease on dialysis is here because of failure of maturation of radiocephalic AV fistula Pre-operative Diagnosis: Radiocephalic AV fistula Post-operative Diagnosis: same. Operation: Fistulogram and central venogram Surgeon: Evelyn Alarcon MD Anesthesia: Anesthesia type not filed in the log. ASA Class: ASA status not filed in the log. Procedure Details T the patient was taken back to the Automatic Spooler Operator placed in supine position appropriate cardiopulmonary except clinical Access was placed in the proximal fistula fistulogram and central venogram were done. The fistula has good size with the exception of the first 3 cm vein is super small with less than half a millimeter of channel lumen. Balloon angioplasty of this area would be high risk for rupture. I discussed with the patient and the family creation of a fistula radiocephalic more proximal. This will be done in a separate day. Complications: None; patient tolerated the procedure well. Disposition: PACU - hemodynamically stable. Condition: stable Attending Attestation: I was present and scrubbed for the entire procedure. [facility] 01-10-2023 Note as [facility] 01-09-2023 Note Subjective Patient ID: Corbin Murphy is a 67 y.o. male who presents for Follow-up (radiocephalic AV fistula creation 10/04/22). Corbin is a 67 year old male with history of ESRD on HD via right IJ permacath who presents for follow up right radiocephalic AVF which was created 10/04/[address] Alarcon. He denies any numbness/pain/tingling in the hand. He had US of fistula which demonstrated immature fistula with slow flow. Review of Systems Constitutional: Negative for activity change, appetite change, chills, diaphoresis, fatigue, fever and unexpected weight change. HENT: Negative for congestion, dental problem, drooling, ear discharge, ear pain, facial swelling, hearing loss, mouth sores, nosebleeds, postnasal drip, rhinorrhea, sinus pressure, sinus pain, sneezing, sore throat, tinnitus, trouble swallowing and voice change. Eyes: Negative for photophobia, pain, redness and visual disturbance. Respiratory: Negative for apnea, cough, choking, chest tightness, shortness of breath, wheezing and stridor. Cardiovascular: Negative for chest pain, palpitations and leg swelling. Gastrointestinal: Negative for abdominal distention, abdominal pain, anal bleeding, blood in stool, constipation, diarrhea, nausea, rectal pain and vomiting. Musculoskeletal: Negative for arthralgias, back pain, gait problem, joint swelling, myalgias, neck pain and neck stiffness. Skin: Positive for wound. Negative for color change, pallor and rash. Neurological: Positive for numbness. Negative for dizziness, tremors, seizures, syncope, facial asymmetry, speech difficulty, weakness, light-headedness and headaches. Objective Visit Vitals Respiration 16 Physical Exam Constitutional: General: He is not in acute distress. Appearance: Normal appearance. He is not ill-appearing. HENT: Head: Normocephalic and atraumatic. Eyes: General: No scleral icterus. Pupils: Pupils are equal, round, and reactive to light. Cardiovascular: Rate and Rhythm: Normal rate and regular rhythm. Comments: Right radiocephalic AVF + thrill and bruit Pulmonary: Effort: Pulmonary effort is normal. Musculoskeletal: Cervical back: Neck supple. Skin: General: Skin is warm and dry. Neurological: General: No focal deficit present. Mental Status: He is alert and oriented to person, place, and time. Psychiatric: Mood and Affect: Mood normal. Behavior: Behavior normal. Thought Content: Thought content normal. Judgment: Judgment normal. Assessment/Plan Diagnoses and all orders for this visit: Immature arteriovenous fistula (CMS/HCC) -Plan for fistulogram with possible balloon assisted maturation with Dr. Alarcon in optical laboratory mechanic -Discussed the risks, benefits, alternatives of the procedure with the patient and time was alloted for all questions to be answered. Patient provided both verbal and written consent No diagnosis found. No orders of the defined types were placed in this encounter. No results found for this or any previous visit (from the past 36 hour(s)). No follow-ups on file. [facility] 10-16-2022 Note aSubjective Patient ID: Corbin Murphy is a 66 y.o. male who presents for Follow-up (2 week post op R AVF creation). HPI Review of Systems Neurological: Positive for numbness. All other systems reviewed and are negative. Objective Visit Vitals Blood Pressure 125/70 (BP Location: Left arm, Patient Position: Sitting, BP Cuff Size: Adult long) Pulse 70 Temperature 36.8 ???C (98.2 ???F) (Temporal) Respiration 16 Physical Exam Assessment/Plan No diagnosis found. No orders of the defined types were placed in this encounter. No results found for this or any previous visit (from the past 36 hour(s)). No follow-ups on file. [facility] 10-16-2022 Note aSubjective Patient ID: Corbin Murphy is a 66 y.o. male who presents for Follow-up (2 week post op R AVF creation). HPI Corbin Murphy is a 66 y.o. male with a history of ESRD and failed left upper extremity access who is s/p R UE RCAVF with Dr. Alarcon 10/02/2022. He denies R hand/arm pain/swelling/paresthesias/numbn ess/weakness. Using CVC for HD without issues- dial[place]zes near [place]. Review of Systems Neurological: Positive for numbness. All other systems reviewed and are negative. Objective Visit Vitals BP 125/70 (BP Location: Left arm, Patient Position: Sitting, BP Cuff Size: Adult long) Pulse 70 Temp 36.8 ???C (98.2 ???F) (Temporal) Resp 16 Physical Exam Vitals reviewed. Constitutional: Appearance: Normal appearance. HENT: Head: Normocephalic. Pulmonary: Effort: Pulmonary effort is normal. Musculoskeletal: General: No swelling. Normal range of motion. Skin: General: Skin is warm. Capillary Refill: Capillary refill takes less than 2 seconds. Comments: CVC insertion site without edema/discoloration/drainage R RCAVF wihtout erythema/edema/induration. + palpable thrill and + bruit on auscultation Neurological: Mental Status: He is alert and oriented to person, place, and time. Mental status is at baseline. Psychiatric: Mood and Affect: Mood normal. Behavior: Behavior normal. Thought Content: Thought content normal. Assessment/Plan Diagnosis Plan 1. ESRD (end stage renal disease) on dialysis ([facility]) Vascular US upper extremity hemodialysis access duplex right #ESRD on HD using CVC currently with recent creation R RCAVF - hold off on cannulation as AVF matures -continue with HD via CVC - hand/arts and sciences dean exercises demonstrated - US of AVF at 6-8 weeks and f/up at that time, sooner if needed [facility] 10-03-2022 Note Patient: Corbin mckeon Procedure Summary Date: 10/02/22 Room / Location: [facility] OPERATING ROOM 06 / [facility] Operating Room Anesthesia Start: 1705 Anesthesia Stop: 1846 Procedure: CREATION, RADIOCEPHALIC AV FISTULA (Right: Arm Lower) Diagnosis: (End stage renal disease) Surgeons: Evelyn Alarcon MD Responsible Provider: Petra Degroot MD Anesthesia Type: general ASA Status: 4 Anesthesia Type: general Vitals Value Taken Time BP 105/68 10/02/221858 Temp 36.2 ???C (97.2 ???F) 10/02/221843 Pulse 74 10/02/229 Resp 18 10/02/221858 SpO2 95 % 10/02/221858 Anesthesia Post Evaluation Patient location during evaluation: bedside Patient participation: complete - patient participated Level of consciousness: awake and alert Pain score: 0 Pain management: adequate Airway patency: patent Cardiovascular status: acceptable Respiratory status: acceptable Hydration status: acceptable Patient is hemodynamically stable and is able to be discharged from PACU per anesthesia protocol. No notable events documented. [facility] 10-02-2022 Note Patient: Corbin mckeon Procedure Summary Date: 10/02/22 Room / Location: [facility] OPERATING ROOM 06 / [facility] Operating Room Anesthesia Start: 1705 Anesthesia Stop: Procedure: CREATION, RADIOCEPHALIC AV FISTULA (Right: Arm Lower) Diagnosis: (End stage renal disease) Surgeons: Evelyn Alarcon MD Responsible Provider: Petra Degroot MD Anesthesia Type: general ASA Status: 4 Anesthesia Post Transport Note Transport to: PACU O2 Route: room air Patient Monitor: direct observation Transport: uneventful Patient condition is: stable [facility] 10-02-2022 Note Airway Date/Time: 10/02/2022 5:21 PM Urgency: elective Airway not difficult General Information and Staff Patient location during procedure: OR Anesthesiologist: Petra Degroot MD Resident/ROLL PLUGGER/CAA: LATRELL Luciano Performed: resident/ROLL PLUGGER/CAA Indications and Patient Condition Indications for airway management: anesthesia and airway protection Spontaneous Ventilation: absent Sedation level: deep Preoxygenated: yes Patient position: sniffing Mask difficulty assessment: 1 - vent by mask Final Airway Details Final airway type: endotracheal airway Successful airway: ETT Cuffed: yes Successful intubation technique: video laryngoscopy Facilitating devices/methods: intubating stylet Endotracheal tube insertion site: oral Blade: Archuleta Blade size: #3 ETT size (mm): 7.5 Cormack-Lehane Classification: grade I - full view of glottis Placement verified by: chest auscultation and capnometry Measured from: lips ETT to lips (cm): 23 Number of attempts at approach: 1 Number of other approaches attempted: 0 Additional Comments 7.5 ETT fit tight but without resistance through cords/trachea [facility] 10-02-2022 Note Patient: Corbin mckeon Procedure Information Date/Time: 10/02/22 1430 Procedure: CREATION, AV FISTULA (Right) - start as last case Location: [facility] OPERATING ROOM 06 / [facility] Operating Room Surgeons: Evelyn Alarcon MD Relevant Problems No relevant active problems Clinical information reviewed: Allergies Meds Med Hx Surg Hx Fam Hx Soc Hx Physical Exam Airway Mallampati: II TM distance: >3 FB Neck ROM: full Cardiovascular - normal exam Dental Pulmonary - normal exam Abdominal - normal exam Other findings: Failed fistula on L arm, no pulse and nonfunctional per patient Dialyzed yesterday. Makes no urine. Dialysis via JOSH chest port Potassium 4.2 Heart attack 2020, stent, now asymptomatic. Has had f/u with cards Renal failure after covid in Anesthesia Plan ASA 4 general (GETA. ) intravenous induction Postoperative administration of opioids is intended. Anesthetic plan and risks discussed with patient. Use of blood products discussed with patient who. Plan discussed with resident, ROLL PLUGGER and CAA. Additional Equipment Requests [facility] 08-09-2022 Evaluation note Encounter Date Diagnosis Assessment Notes Jul, Bacteremia (ICD-10 - R78.81) Patient though is not sure of which antibiotic he is currently getting a dialysis the discharge paperwork does state vancomycin was to be arranged. That is what he should be on and was post to complete a 4-week treatment course. There was fistula had been removed and the area looks great he is doing very well I did write the name of the antibiotic on the back my card for him to check with dialysis to ensure that he is indeed receiving the correct antibiotic. Jul, Methicillin resistant Staphylococcus aureus infection as the cause of diseases classified elsewhere (ICD-10 - B95.62) Jul, Infection of arteriovenous dialysis fistula, subsequent encounter (ICD-10 - T82.7XXD) [facility]Comment on above:Result Comment: Electronically Signed By: Nathalie HAAS\.br\Date and Time Signed: 07/19/22 17:35 EDT\.br\Electronically Co-Signed By: Chandrakant LEW MD\.br\Date and Time Co-Signed: 07/19/2316:38 [id number] NotePT Evaluation done this . Pt. with on AM-PAC this date. Very weak and fatigued. Difficulty standing upright to use FWW safely. [facility] NoteVeter[facility] AdministrationComment on above: Result Comment: Electronically Signed By: Nathalie HAAS\.br\Date and Time Signed: 07/12/22 17:08 EDT\.br\Electronically Co-Signed By: Michael FISH, Fuentes Lemons\.br\Date and Time Co-Signed: 07/12/22 17:46 [id number] Hospital Discharge instructions Patient Education 07/09/2022 19:31:06 Thrombophlebitis Thrombophlebitis Thrombophlebitis is a condition in which a blood clot and inflammation occur inside a vein. This can happen in the arms, legs, or torso. Thrombophlebitis may involve superficial veins, deep veins, orboth. Superficial veins are close to the surface of the body and are part of the superficial venoussystem. Veins that are deeper inside the body are part of the deep venous system. When this condition happens in a superficial vein (superficial thrombophlebitis), it is usually notserious.However, when the condition happens in a vein that is part of the deep venous system (deep vein thrombosis, DVT), it can cause serious problems. What are the causes? This condition may be caused by: Infection, injury, or trauma to a vein. Inflammation of the veins. Medical conditions that can cause blood to clot more easily (hypercoagulable state). Backing up, or reflux, of blood flow through the veins (chronic venous insufficiency or venous stasis). What increases the risk? The following factors may make you more likely to develop this condition: Having a long, thin tube (catheter) put in a vein, such as a central line, port, or IV catheter. Getting certain medicines through a catheter that can irritate the vein. or having recently given . Cancer. Obesity. Taking oral contraceptive pills (OCPs) or hormone therapy (HT) medicines. Spasms of veins. Immobilization, or not moving the limbs for prolonged periods. What are the signs or symptoms? The main symptoms of this condition are: Swelling and pain in an arm or leg. If the affected vein is in the leg, you may feel pain while standing or walking. Warmth or redness in an arm or leg. Tenderness in the affected area when it is touched. Other symptoms include: Low-grade fever. Muscle aches. A bulging or hard vein (venous distension). In some cases, there are no symptoms. How is this diagnosed? This condition may be diagnosed based on: Your symptoms and medical history. A physical exam. Tests, such as a test that uses sound waves to make images (duplex ultrasound). How is this treated? Treatment depends on how severe the condition is and which area of the body is affected. Treatment may include: Applying a warm compress or heating pad to affected areas. This may need to be repeated several times a day. Moving the affected limb. For example, you may need to start doing walking exercises right away. You will also be encouraged to continue your usual daily activities. Raising (elevating) the affected arm or leg above the level of your heart. Medicines, such as: ?Anti-inflammatory medicines, such as ibuprofen. ?Blood thinners (anticoagulants) or anti-platelet drugs such as aspirin. Removing an IV or central line that may be causing the problem. Wearing compression stockings to help prevent blood clots and reduce swelling in your legs. Follow these instructions at home: Medicines Take nncu-dvs-ioiffjy and prescription medicines only as told by your health care provider. If you are taking blood thinners: ?Talk with your health care provider before you take any medicines that contain aspirin or NSAIDs, such as ibuprofen. These medicines increase your risk for dangerous bleeding. ?Take your medicine exactly as told, at the same time every day. ?Avoid activities that could cause injury or bruising, and follow instructions about how to preventfalls. ?Wear a medical alert bracelet or carry a card that lists what medicines you take. Managing pain, stiffness, and swelling If directed, apply heat to the affected area as often as told by your health care provider. Use theheat source that your health care provider recommends, such as a moist heat pack or a heating pad. ?Place a towel between your skin and the heat source. ?Leave the heat on for 20 30 minutes. ?Remove the heat if your skin turns bright red. This is especially important if you are unable to feel pain, heat, or cold. You have a greater risk of getting burned. Elevate the affected area above the level of your heart while you are sitting or lying down. Activity Return to your normal activities as told by your health care provider. Ask your health care provider what activities are safe for you. Avoid sitting for a long time without moving. Get up to take short walks every 1 2 hours. This is important to improve blood flow and breathing. Ask for help if you feel weak or unsteady. Do exercises as told by your health care provider. Rest as told by your health care provider. General instructions Drink enough fluid to keep your urine pale yellow. Wear compression stockings as told by your health care provider. Do not use any products that contain nicotine or tobacco. These products include cigarettes, chewing tobacco, and vaping devices, such as e-cigarettes. If you need help quitting, ask your health careprovider. Keep all follow-up visits. This is important. Contact a health care provider if: You miss a dose of your blood thinner, if applicable. Your symptoms do not improve. You have unusual bruising. You have nausea, vomiting, or diarrhea that lasts for more than a day. Get help right away if: You are breathing fast or have chest pain. You have blood in your vomit, urine, or stool. You have severe pain in your affected arm or leg or new pain in any arm or leg. You have light-headedness, dizziness, a severe headache, or confusion. These symptoms may represent a serious problem that is an emergency. Do not wait to see if the symptoms will go away. Get medical help right away. Call your local emergency services (911 in the [place] Do not drive yourself to the hospital. Summary Thrombophlebitis is a condition in which a blood clot forms in a vein, causing inflammation and often pain. This can happen in both superficial and deep veins. The main symptom of this condition is swelling and pain around the affected vein. Tenderness and redness may also be present. Treatment may include warm compresses, compression stockings, anti-inflammatory medicines, or bloodthinners. Make sure you take all medicines, especially blood thinners, as instructed and keep all follow-up visits to ensure proper healing of the vein. This information is not intended to replace advice given to you by your health care provider. Make sure you discuss any questions you have with your health care provider. Document Revised: 07/24/2021 Document Reviewed: 07/24/2021 [employer] Patient Education 2022 [employer]. Follow Up Care 07/09/2022 17:23:13 With:Evelyn Alarcon Address: [address] [place] [phone] Business (1) When:07/12/2022 18:59:06 Comments:Follow-up with Dr. Alarcon for further evaluation of your fistula. With:Nav Alejo Address: [address] [place] [phone] Business (1) When:07/12/2022 18:58:50 Comments:Follow-up with your primary care provider in 3 to 5 days. If symptoms worsen, do not improve, or new symptoms arise please report back to emergency department for further evaluation. [facility]05-28-2023 [facility] CenterComment on above:Result Comment: Electronically Signed By: Pedro ARAUZ MD\.br\Date and Time Signed: 07/08/22 09:40 [id number] Note [id number]:127[facility] 07[facility]22 [facility] CenterComment on above:Result Comment: Electronically Signed By: Pedro ARAUZ MD\.br\Date and Time Signed: 07/02/22 17:10 [id number]:127 [facility]02-[facility] Hospital Discharge instructions Patient Education 03/15/2022 14:06:07 Dialysis Fistulogram, Care After Dialysis Fistulogram, Care After This sheet gives you information about how to care for yourself after your procedure. Your health care provider may also give you more specific instructions. If you have problems or questions, contact your health care provider. What can I expect after the procedure? After the procedure, it is common to have: A small amount of discomfort in the area where the small, thin tube (catheter) was placed for the procedure. A small amount of bruising around the fistula. Sleepiness and tiredness (fatigue). Follow these instructions at home: Activity Rest at home and do not lift anything that is heavier than 5 lb (2.3 kg) on the day after your procedure. Return to your normal activities as told by your health care provider. Ask your health care provider what activities are safe for you. Do not drive or use heavy machinery while taking prescription pain medicine. Do not drive for 24 hours if you were given a medicine to help you relax (sedative) during your procedure. Medicines Take xnxv-njy-ntcbyys and prescription medicines only as told by your health care provider. Puncture site care Follow instructions from your health care provider about how to take care of the site where catheters were inserted. Make sure you: ?Wash your hands with soap and water before you change your bandage (dressing). If soap and water are not available, use hand sausage stuffer. ?Change your dressing as told by your health care provider. ?Leave stitches (sutures), skin glue, or adhesive strips in place. These skin closures may need to stay in place for 2 weeks or longer. If adhesive strip edges start to loosen and curl up, you may trim the loose edges. Do not remove adhesive strips completely unless your health care provider tells you to do that. Check your puncture area every day for signs of infection. Check for: ?Redness, swelling, or pain. ?Fluid or blood. ?Warmth. ?Pus or a bad smell. General instructions Do not take baths, swim, or use a hot tub until your health care provider approves. Ask your healthcare provider if you may take showers. You may only be allowed to take sponge baths. Monitor your dialysis fistula closely. Check to make sure that you can feel a vibration or buzz (a thrill) when you put your fingers over the fistula. Prevent damage to your graft or fistula: ?Do not wear tight-fitting clothing or jewelry on the arm or leg that has your graft or fistula. ?Tell all your health care providers that you have a dialysis fistula or graft. ?Do not allow blood draws, IVs, or blood pressure readings to be done in the arm that has your fistula or graft. ?Do not allow flu shots or vaccinations in the arm with your fistula or graft. Keep all follow-up visits as told by your health care provider. This is important. Contact a health care provider if: You have redness, swelling, or pain at the site where the catheter was put in. You have fluid or blood coming from the catheter site. The catheter site feels warm to the touch. You have pus or a bad smell coming from the catheter site. You have a fever or chills. Get help right away if: You feel weak. You have trouble balancing. You have trouble moving your arms or legs. You have problems with your speech or vision. You can no longer feel a vibration or buzz when you put your fingers over your dialysis fistula. The limb that was used for the procedure: ?Swells. ?Is painful. ?Is cold. ?Is discolored, such as blue or pale white. You have chest pain or shortness of breath. Summary After a dialysis fistulogram, it is common to have a small amount of discomfort or bruising in the area where the small, thin tube (catheter) was placed. Rest at home on the day after your procedure. Return to your normal activities as told by your health care provider. Take oskp-jul-pxxvnyd and prescription medicines only as told by your health care provider. Follow instructions from your health care provider about how to take care of the site where the catheter was inserted. Keep all follow-up visits as told by your health care provider. This information is not intended to replace advice given to you by your health care provider. Make sure you discuss any questions you have with your health care provider. Document Released: 06/14/2014 Document Revised: 02/28/2018 Document Reviewed: 02/28/2018 [employer] Patient Education 2019 [employer]. Follow Up Care 03/15/2022 11:30:19 With:Evelyn Alarcon Address: [place] [id number] [employer] (1) When: Unknown Comments:as needed [facility]02-02-2023 Evaluation + Plan noteExtracted from: Title:Procedure Note Heart & Vascular Author:Candice walker MD, Evelyn Lopez Date:03/15/22 Ordered: atropine, 1 mg = 1 mL, Injection, IV Push, Once PRN Other (see comment), Routine, Start date 03/15/22 12:53:00 EST fentanyl, Injection, Misc, Once, Stop date 03/15/22 14:10:24 EST, Physician Stop, 03/15/22 14:10:24 EST fentanyl, 100 microgram = 2 mL, Injection, IV, q2min PRN Other (see comment) for 4 dose(s), Stop date Limited # of times, Routine, Start date 03/15/22 12:53:00 EST flumazenil, 0.1 mg = 1 mL, Soln-IV, IV, Once PRN Other (see comment), Routine, Start date 03/15/22 12:53:00 EST heparin, Soln-IV, Misc, Once, Stop date 03/15/22 14:03:26 EST, Physician Stop, 03/15/22 14:03:26 EST heparin, 10,000 unit(s) = 10 mL, Injection, IV Push, q5min PRN Other (see comment) for 2 dose(s), Stop date Limited # of times, Routine, Start date 03/15/22 12:53:00 EST heparin, 1,000 unit(s) = 500 mL, Soln-IV, Misc, Once PRN Other (see comment), Routine, Start date 03/15/22 12:53:00 EST, intraprocedure use only heparin, 1,000 unit(s) = 500 mL, Soln-IV, Misc, Once PRN Other (see comment), Routine, Start date 03/15/22 12:53:00 EST, intraprocedure use only heparin, 1,000 unit(s) = 500 mL, Soln-IV, Misc, Once PRN Other (see comment), Routine, Start date 03/15/22 12:53:00 EST, intraprocedure use only hydrALAZINE, 10 mg = 0.5 mL, Injection, IV Push, q5min PRN Other (see comment) for 4 dose(s), Stop date Limited # of times, Routine, Start date 03/15/22 12:53:00 EST iopamidol, Injection, Misc, Once, Stop date 03/15/22 14:03:12 EST, Physician Stop, 03/15/22 14:03:12 EST iopamidol, = 100 mL, Injection, IV Push, q15min PRN Other (see comment) for 2 dose(s), Stop date Limited # of times, Routine, Start date 03/15/22 12:53:00 EST, intraprocedure use iopamidol, = 50 mL, Injection, IV Push, q15min PRN Other (see comment) for 2 dose(s), Stop date Limited # of times, Routine, Start date 03/15/22 12:53:00 EST lidocaine, Injection, Misc, Once, Stop date 03/15/22 14:03:20 EST, Physician Stop, 03/15/22 14:03:20 EST lidocaine, 100 mg, 10 mL, Injection, SubCutaneous, q5min PRN Other (see comment) for 3 dose(s), Stop date Limited # of times, Routine, Start date 03/15/22 12:53:00 EST metoprolol, 5 mg = 5 mL, Injection, IV Push, q5min PRN Other (see comment) for 2 dose(s), Stop date Limited # of times, Routine, Start date 03/15/22 12:53:00 EST midazolam, Injection, Misc, Once, Stop date 03/15/22 14:09:50 EST, Physician Stop, 03/15/22 14:09:50 EST midazolam, 2 mg = 2 mL, Injection, IV, q2min PRN Other (see comment) for 4 dose(s), Stop date Limited # of times, Routine, Start date 03/15/22 12:53:00 EST naloxone, 2 mg = 2 mL, Injection, IV Push, Once PRN Other (see comment), Routine, Start date 03/15/22 12:53:00 EST nitroglycerin, 1 in, Ointment, Topical, Once PRN Other (see comment), Routine, Start date 03/15/22 12:53:00 EST protamine, 50 mg = 5 mL, Injection, IV Push, q2min PRN Other (see comment) for 2 dose(s), Stop date Limited # of times, Routine, Start date 03/15/22 12:53:00 EST Sodium Chloride 0.9% intravenous solution, Soln-IV, Misc, Once, Stop date 03/15/22 13:45:30 EST, Physician Stop, 03/15/22 13:45:30 EST Sodium Chloride 0.9% intravenous solution 1,000 mL, 1,000 mL, IV, 30 mL/hr, Routine, Start date 03/15/22 12:53:00 EST, 33.3 hour(s), Total volume (mL): 1,000, 101.3 kg, 2.24, m2 Automated Diff Basic Metabolic Panel CBC w/ Auto Diff Communication Order Communication Order Physician to Nursing CV Peripheralvascular CV Peripheralvascular eGFR NPO Diet Oxygen Protocol Patient Education Saline Lock Insert [facility]09-23-2022 Note [id number]:127[facility] Hospital Discharge instructions Patient Education 11/02/2021 13:11:32 Dialysis Fistulogram, Care After Dialysis Fistulogram, Care After This sheet gives you information about how to care for yourself after your procedure. Your health care provider may also give you more specific instructions. If you have problems or questions, contact your health care provider. What can I expect after the procedure? After the procedure, it is common to have: A small amount of discomfort in the area where the small, thin tube (catheter) was placed for the procedure. A small amount of bruising around the fistula. Sleepiness and tiredness (fatigue). Follow these instructions at home: Activity Rest at home and do not lift anything that is heavier than 5 lb (2.3 kg) on the day after your procedure. Return to your normal activities as told by your health care provider. Ask your health care provider what activities are safe for you. Do not drive or use heavy machinery while taking prescription pain medicine. Do not drive for 24 hours if you were given a medicine to help you relax (sedative) during your procedure. Medicines Take rpic-abg-ytojoii and prescription medicines only as told by your health care provider. Puncture site care Follow instructions from your health care provider about how to take care of the site where catheters were inserted. Make sure you: ?Wash your hands with soap and water before you change your bandage (dressing). If soap and water are not available, use hand sausage stuffer. ?Change your dressing as told by your health care provider. ?Leave stitches (sutures), skin glue, or adhesive strips in place. These skin closures may need to stay in place for 2 weeks or longer. If adhesive strip edges start to loosen and curl up, you may trim the loose edges. Do not remove adhesive strips completely unless your health care provider tells you to do that. Check your puncture area every day for signs of infection. Check for: ?Redness, swelling, or pain. ?Fluid or blood. ?Warmth. ?Pus or a bad smell. General instructions Do not take baths, swim, or use a hot tub until your health care provider approves. Ask your healthcare provider if you may take showers. You may only be allowed to take sponge baths. Monitor your dialysis fistula closely. Check to make sure that you can feel a vibration or buzz (a thrill) when you put your fingers over the fistula. Prevent damage to your graft or fistula: ?Do not wear tight-fitting clothing or jewelry on the arm or leg that has your graft or fistula. ?Tell all your health care providers that you have a dialysis fistula or graft. ?Do not allow blood draws, IVs, or blood pressure readings to be done in the arm that has your fistula or graft. ?Do not allow flu shots or vaccinations in the arm with your fistula or graft. Keep all follow-up visits as told by your health care provider. This is important. Contact a health care provider if: You have redness, swelling, or pain at the site where the catheter was put in. You have fluid or blood coming from the catheter site. The catheter site feels warm to the touch. You have pus or a bad smell coming from the catheter site. You have a fever or chills. Get help right away if: You feel weak. You have trouble balancing. You have trouble moving your arms or legs. You have problems with your speech or vision. You can no longer feel a vibration or buzz when you put your fingers over your dialysis fistula. The limb that was used for the procedure: ?Swells. ?Is painful. ?Is cold. ?Is discolored, such as blue or pale white. You have chest pain or shortness of breath. Summary After a dialysis fistulogram, it is common to have a small amount of discomfort or bruising in the area where the small, thin tube (catheter) was placed. Rest at home on the day after your procedure. Return to your normal activities as told by your health care provider. Take fwhn-ytg-ctagkcs and prescription medicines only as told by your health care provider. Follow instructions from your health care provider about how to take care of the site where the catheter was inserted. Keep all follow-up visits as told by your health care provider. This information is not intended to replace advice given to you by your health care provider. Make sure you discuss any questions you have with your health care provider. Document Released: 06/14/2014 Document Revised: 02/28/2018 Document Reviewed: 02/28/2018 [employer] Patient Education 2020 [employer]. Follow Up Care 10/27/2021 08:22:09 With:Evelyn Alarcon Address: [address] [place] [phone] Business (1) When: Unknown Comments:Call for followup appointment if needed With:Nav Alejo Address: [address] [place] [phone] Business (1) When: Unknown [facility] No data available for this section [facility] Future Appointments Appointment Date:08/06/2022 10:00:00 AM Scheduled Provider:Dorian FISH, Evelyn Lopez Location[facility] Appointment Type:Vascular Follow Up (FT) [facility] [facility] Future Appointments Appointment Date:07/16/2022 12:00:00 PM Scheduled Provider: Location:[facility] App[facility]ment [facility] Diagnosis Arteriosclerotic heart disease Coronary atherosclerosis of unspecified type of vessel, [place] or graft S/P PTCA (percutaneous transluminal coronary angioplasty) Postsurgical percutaneous transluminal coronary angioplasty status ESRD (end stage renal disease) on dialysis ([facility]) End stage renal disease Diabetes mellitus of other type without complication, unspecified whether manager terminal insulin use ([facility]) Essential hypertension Unspecified essential hypertension Hyperlipidemia, unspecified hyperlipidemia type Never smoked any substance documented in this encounter [facility] Work Phone: History general Narrative - Reported* Type Description Date Medical History DM2 Medical History obesity Medical History HLP Medical History CKD stage 3 ; last 2 GFR is of 5 0 and 48 Medical History AV FISTULA INFECTION Medical History CAD Medical History SYSTOLIC HEART FAILURE Medical History PERIPHIAL NUEROPATHY Medical History HYPOTHYROIDISM Medical History VENOUS STASIS Surgical History cholecystectomy Surgical History umbilical hernia Surgical History vasectomy and reversal Surgical History bilat cataract eye surgery 2011 Surgical History cardiac stent 04/29 Surgical History ARTERIOVENOUS FISTULA 07/2022 Surgical History INSERTION OF HEMODIALYSIS Surgical History FISTULAGRAM X 3 Hospitalization History SEE ABOVE SURGERY Hospitalization History BLOOD CLOT IN LEG 2010 Hospitalization History Heart attack 04-16-18 [facility] Discharge instructions No data available for this section [facility] No data available for this section [facility] (narrative)* Consultation (Routine) - Authorized Specialty Diagnoses / Procedures Referred By Khadijah tamayo Referred To Contact Cardiology Diagnoses Arteriosclerotic heart disease Procedures Follow Up In Cardiology Corbin Ying DO [address] [place] [address], [address] [address] Corbin Ying DO [address] [place] [address] 2, [address] [address] Referral ID Status Reason Start Date Expiration Date V isits Requested Visits Authorized [id number] Authorized 01/31/2023 01/31/2024 1 1 [facility] Work Phone: Summary Purpose Family History Relationship Condition Age at Onset Recorded Date/T mayito Not Specified Diabetes mellitus Unknown Heart disease Unknown father Diabetes mellitus Unknown Unknown Family Member Name Dates Details Family history of CABG: Moth er(V17.49, Z82.49) Status:Active Family history of hypertensi on: Father(V17.49, Z82.49) Status:Active Unknown Family Member Name Dates Details Family history of CABG: Moth er(V17.49, Z82.49) Status:Active Family history of hypertensi on: Father(V17.49, Z82.49) Status:Active Unknown Family Member Name Dates Details Family history of CABG: Moth er(V17.49, Z82.49) Status:Active Family history of hypertensi on: Father(V17.49, Z82.49) Status:Active Unknown Family Member Name Dates Details Family history of CABG: Moth er(V17.49, Z82.49) Status:Active Family history of hypertensi on: Father(V17.49, Z82.49) Status:Active Unknown Family Member Name Dates Details Family history of CABG: Moth er(V17.49, Z82.49) Status:Active Family history of hypertensi on: Father(V17.49, Z82.49) Status:Active Advance Directives No Advanced Directives Records FoundNo Advanced Directives Records FoundNo Advanced Directives Records FoundNo Advanced Directives Records FoundNo Advanced Directives Records FoundNo Advanced Directives Records FoundNo Advanced Directives Records FoundNo Advanced Directives Records FoundNo Advanced Directives Records FoundNo Advanced Directives Records Found Assessments No Assessments Information Available Chief Complaint * CORBIN MURPHY is being seen for a 6 month follow-up of. * Patient is a 65-year-old gentleman returns for follow-up he is doing well he is still ambulatory with wheelchair and walker following and is prolonged and severe COVID illness in 2019. He underwent anterior TN with PCI chronic total occlusion of the proximal through mid LAD x2 drug-eluting stents in March 2018; follow-up echocardiogram revealed low normal left ventricular function with ejection fraction of 50% in September 2018. In March 2020 he underwent COVID infection with prolonged intubation and hospitalization in [place] with multiorgan failure details of which have been reviewed. * He stable without angina, heart failure recurrent hospitalizations, currently on dialysis due to end-stage renal disease associated with his COVID infection and diabetes. * Recommendations, obtain appropriate laboratories and follow-up in 6 to 12 months * CORBIN MURPHY is being seen for a 6 month follow-up of. * 66-year-old gentleman returns for 6-month follow-up he is doing very well from a cardiovascular standpoint. He has no angina or heart failure. Details of his COVID illness in 2020 and extended hospitalization with subsequent transition end-stage renal disease now on hemodialysis are reviewed from my last note but are noted. He is tolerating dialysis reasonably well with occasional episodes of hypotension. He has had no heart failure. * He has a history of ASHD with LEATHERSMITH intervention of the LAD in April 2018 with normalization of his LV function. He has underlying diabetes mild obesity * He remains on appropriate guideline directed medical therapies and is intolerant to GOMEZ ARB due to hypotension. * Recommendations, will continue current therapies and follow-up in 1 year Additional Source Comments (unrecognized sect ion and content) No Status Records FoundNo Status Records FoundNo Status Records FoundNo Status Records FoundNo Status Records FoundNo Status Records FoundNo Status Records FoundNo Status Records FoundNo Status Records FoundNo Status Records Found INFORMATION SOURCE (unrecogn ized section and content) DATE CREATED AUTHOR 09/03/2019 [facility] DATE CREATED AUTHOR AUTHOR'S ORGANIZ ATION 05/19/2020 [facility] DATE CREATED AUTHOR AUTHOR'S ORGANIZ ATION 10/21/2020 [facility] DATE CREATED AUTHOR AUTHOR'S ORGANIZ ATION 01/12/2022 [facility] DATE CREATED AUTHOR AUTHOR'S ORGANIZ ATION 02/03/2022 [facility] DATE CREATED AUTHOR AUTHOR'S ORGANIZ ATION 05/19/2022 [facility] DATE CREATED AUTHOR AUTHOR'S ORGANIZ ATION 06/20/2022 [facility] DATE CREATED AUTHOR AUTHOR'S ORGANIZ ATION 08/18/2022 [facility] DATE CREATED AUTHOR AUTHOR'S ORGANIZ ATION 11/24/2022 [facility] DATE CREATED AUTHOR AUTHOR'S ORGANIZ ATION 01/22/2023 [facility] Care Team (unrecognized sect ion and content) Director Outcomes Relationship Specialty Start Date End Date Nav Alejo MD [address] [facility] [place] [address] PCP - General 05/22/18 REASON FOR VISIT (unrecogniz ed section and content) Reason Comments Annual Exam FOR RECORDS PERTAINING TO PATIENTS WHO ARE OR HAVE BEEN ENROLLED IN A CHEMICAL DEPENDENCY/SUBSTANCEABUSE PROGRAM, SOME INFORMATION MAY BE OMITTED. This clinical summary was aggregated from multiple sources. Caution should be exercised in using it in the provision of clinical care. This summary normalizes information from multiple sources, and as a consequence, information in this document may materially change the coding, format and clinical context of patient data. In addition, data may be omitted in some cases. CLINICAL DECISIONS SHOULD BE BASED ON THE PRIMARY CLINICAL RECORDS. [employer] [facility]. provides no warranty or guarantee of the accuracy or completeness of information in this document.
[2023-02-05 13:38] LABS: Alanine Aminotransferase 40 U/L (16-63); Aspartate Amino Transferase 28 U/L (15-37); Chol HDL Ratio 1.9; Cholesterol 99 mg/dL (<=200); HDL Cholesterol 53 mg/dL (40-60); Triglycerides 60 mg/dL (<=150)
== END 2023-02-05 12:21 | disposition home or self-care (01) ==
LOC: LAB 12:26
PROVIDERS: PCP Family Medicine; Visit Provider Internal Medicine Cardiovascular Disease
DX: I25.10 Atherosclerotic heart disease of native coronary artery without angina pectoris (principal); I10 Essential (primary) hypertension; E78.5 Hyperlipidemia, unspecified
CPT/HCPCS: 36415; 80061; 84450; 84460

== ENCOUNTER 2023-02-28 14:29 | Outpatient (OUT) | payer MEDICARE, SELFPAY ==
--- NOTE | 2023-02-28 | XR_ITS ---
[address] [address] Patient Name: SETH MURPHY MRN: [id number] date: 1955 Sex: M Assigned Patient Location: Current Patient Location: Accession/Order Number: [id number] Exam Date: 02/28/2023 14:32 Report Date: 02/28/2023 15:34 At the request of: MARANDA HUIZAR Procedure: XR foot VENITA min 3V EXAMINATION: XR foot VENITA min 3V HISTORY: BILATERAL FOOT PAIN COMPARISON: 02/15/2022 FINDINGS: RIGHT FINDINGS: BONES: No acute fracture or dislocation. 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 Degenerative changes with joint space narrowing marginal osteophyte formation. Mild enthesopathic spurring of the calcaneus. SOFT TISSUES: Negative. No visible soft tissue swelling. OTHER: Extensive atherosclerosis. LEFT FINDINGS: BONES: No acute fracture or dislocation. 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 Degenerative changes with joint space narrowing marginal osteophyte formation. Mild enthesopathic spurring of the calcaneus. SOFT TISSUES: Negative. No visible soft tissue swelling. OTHER: Extensive atherosclerosis. 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
--- OUTSIDE RECORDS SUMMARY | 2023-02-28 14:43 | XMS_ITS | CCD ---
Author Name Unknown Address [address] [place] [address] Organization [facility] Care Team Providers Care Fountain Dispenser Name Role Phone VIOLETA ALEJO Referring Unavailable VIOLETA ALEJO Primary Care Unavailable Laly Amaro Attending Unavailable Laly Amaro Admitting Unavailable Violeta Alejo Unavailable Unavailable Unavailable Violeta Alejo Primary Care Physician [phone] PROVIDER, UNKNOWN Attending Unavailable PROVIDER, UNKNOWN Admitting Unavailable MELO Clifton, DR MCDANIEL Primary Care Unavailable HIGHLANDER, PETER D Attending Unavailable HIGHLANDER, PETER D Admitting Unavailable HIGHLANDER, PETER D Admitting Unavailable HIGHLANDER, PETER D Attending Unavailable HOY ., DR MCDANIEL Primary Care Unavailable LEANNE HUIZAR Attending Unavailable GAYELEANNE Admitting Unavailable HOY ., DR MCDANIEL Primary Care Unavailable HIGHLANDER, PETER D Admitting Unavailable HIGHLANDER, PETER D Attending Unavailable HOY ., DR MCDANIEL Primary Care Unavailable HOY ., DR MCDANIEL Primary Care Unavailable HIGHLANDER, PETER D Admitting Unavailable HIGHLANDER, PETER D Attending Unavailable HOY ., DR MCDANIEL Primary Care Unavailable HIGHLANDER, PETER D Admitting Unavailable HIGHLANDER, PETER D Attending Unavailable NATHEN LUCIA Consulting Unavailable LEANNE HUIZAR Attending Unavailable MELO ., DR MCDANIEL Primary Care Unavailable LEANNE [...] Primary Care Unavailable LEANNE HUIZAR Attending Unavailable GAYE, LEANNE Consulting Unavailable GAYE, LEANNE Admitting Unavailable MELO ., DR MCDANIEL Primary Care Unavailable NAKUL ., NYLA CARPIO Consulting Unavailabl e PAY ., DR VARGAS Attending Unavailable MELO ., DR MCDANIEL Primary Care Unavailable PAY ., DR VARGAS Admitting Unavailable POLICARO, CHRISTIANNE Consulting Unavailable Mohsen, Shereen L Unavailable Unavailable Dorian, Mohamed F. Attending [...] Jatin Consulting Unavailable Fournier, Jatin Consulting Unavailable Dorian, Mohamed F. Attending Unavailable [...] Cristino Consulting Unavailable Reji Azar Attending Unavailable Adam Weinberg Attending Unavailable Dorian, Mohamed F. Admitting Unavailable Dorian, Mohamed F. Attending Unavailable NONE, XXXX Referring Unavailable Dorian, Mohamed F. Admitting Unavailable Dorian, Mohamed F. Attending Unavailable NONE, XXXX Referring Unavailable Karla Alfredo Unavailable Dr. Violeta Alejo Primary Care Unavail able Stepan, Dr. Corbin Roberts Attending Unava ilable Stepan, Dr. Corbin Roberts Referring Unava ilita Alejo, Dr. Violeta Fuentes Primary Care Unavail ita Alejo MD, Violeta Fuentes Primary Care Provider CORBIN YING Attending Unavailable VIOLETA ALEJO Primary Care Unavailable DORIAN, MOHAMED Admitting Unavailable DORIAN, MOHAMED Attending Unavailable DORIAN, MOHAMED Admitting Unavailable DORIAN, MOHAMED Attending Unavailable ESPINOZA, ROSANNE Referring Unavailable ESPINOZA, ROSANNE Attending Unavailable SFAELOS, DEIDRE Attending Unavailable SFAELOS, DEIDRE Attending Unavailable DORIAN, MOHAMED Admitting Unavailable DORIAN, MOHAMED Attending Unavailable Unavailable Unavailable Unavailable Allergies Allergy Classification Reported Allergen(s) Allergy Type Date of Onset Reaction(s) Facility (5 sources) Ticagrelor; Translations: [ticagrelor] Drug Allergy 0 Headache, Nausea/vomiting [facility] (14 sources) Ticagrelor; Translations: [ticagrelor] Drug Allergy 0 Unknown (qualifier value) [facility] Repository (5 sources) Ticagrelor; Translations: [Brilinta TABS] Drug Allergy Nausea, Headache, Other [facility] DO Work Phone: (11 sources) Coban Bandage; Translations: [Coban Bandage] Drug allergy Eruption of skin (disorder) [facility] (4 sources) Angiotensin Converting Enzyme (Gomez) Inhibitors; Translations: [GOEMZ Inhibitors] Allergy to drug (finding) 3 Hypotension [facility] 3 Repository (3 sources) Beta-Adrenergic Joi; Translations: [Beta Adrenergic Blockers] Allergy to drug (finding) Hypotension [facility] 250 DO Work Phone: (3 sources) Bandages MISC; Translations: [Bandages MISC] Allergy to drug (finding) Rash [facility] DO Work Phone: (1 source) Angiotensin-conv erting enzyme inhibitor agent Propensity to adverse reactions 3 Other [facility] Work Phone: (2 sources) Selective beta-2 adrenoceptor stimulants; Translations: [BETA-ADRENERGIC AGENTS] Propensity to adverse reactions 3 Other [facility] Work Phone: (1 source) OTHER; Translations: [OTHER] Propensity to adverse reactions (disorder) 3 [facility] Repository Medications Current Medications Medication Drug Class(es) Dates [...] q12hr, # 20 cap(s), Refills(s) 0, Pharmacy: [facility]/pharmacy #[id number], 178, cm, 07/09/22 17:32:00 EDT, [...] Corticosteroid Start: 12-08-2018 FreeStyle Bre 14 Day [place] - (1 source) Start: 04-15-2018 Freestyle Bre [...] Start: 01-01-2022 take 1 tablet by jus once daily midodrine 5 mg Tab 5 [...] Vancomycin (3 sources) Glycopeptide Antibacterial Start: 07-20-19 23 take 1 dose intravenously once daily vancomycin [...] 5 mL 100 unit(s), IV, q24hr, Follow [facility] PICC line flushing policy, # 3 EA, [...] [Coronary atherosclerosis of unspecified type of vessel, council or graft] Onset: 9 07-09-2019 Chronic Coronary atherosclerosis and other heart disease (6 sources) Patient post percutaneous transluminal coronary angioplasty; [...] Onset: 3 12-03-2022 Episodic Residual codes; unclassified (6 sources) Other specified health status; Translations: [GOMEZ [...] source) USP (current) use of insulin; Translations: [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] Onset: 08-29-2021 Episodic Other aftercare (1 source) Other nursing home (current) drug therapy; Translations: [OTH 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 CURRENT DRUG THERAPY] Onset: 08-29-2021 Episodic Other aftercare (1 source) 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; Translations: [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 OF ASPIRIN] Onset: 08-29-2021 Episodic [...] Test Name Value Interpretation Reference Range Facility Follow-Upon 02-06-2023 Follow-Up [id number] Corbin Murphy 1955 M Date Provider Department Center 02/06/2023 DEIDRE GREEN [facility] No family history on file Level of Service:87309 CA POSTOP FOLLOW UP VISIT RELATED TO ORIGINAL PX Reason for Visit and Comments: Post-op [483] - S/P RUE AV Fistula creation on 01/18/23 Normal [facility] 29on 01-21-2023 29 Addendum created 01/21/23 1344 by Leanne Chavez MD Clinical Note Signed Normal [facility] APTTon 01-18-2023 ACTIVATED PARTIAL THROMBOPLASTIN TIME IN PPP BY COAGULATION ASSAY 29.4 Seconds Normal 25.0-35.0 [facility] Comment on above: Result Comment: Clin ical significance of the APTT is questionable in the presence of heparin. Performed By: #### L [id number] #### [facility] [address] [place] [address] Anesthesiaon 01-18-2023 Anesthesia [id number] Corbin Murphy 1955 M Date Provider Department Center 01/18/2023 403-JOSÉ LUNDBERG [facility] OR [place] Medical C No family history on file Normal [facility] BASIC METABOLIC PANELon Anion gap [Moles/Vol] 16 mmol/L Normal 7-20 [facility] Comment on above: Performed By: #### L [id number] #### [facility] ([facility]) [address] [place] [address] Calcium [Mass/Vol] 9.6 mg/dL Normal 8.6-10.[address] [facility] Comment on above: Performed By: #### L [id number] #### [facility] ([facility]) [address] [place] [address] Chloride [Moles/Vol] 100 mmol/L Normal 98-107 [facility] Comment on above: Performed By: #### L [id number] #### [facility] ([facility]) [address] [place] [address] CO2 [Moles/Vol] 23 mmol/L Normal 21-31 [facility] Comment on above: Performed By: #### L [id number] #### [facility] ([facility]) [address] [place] [address] Creatinine [Mass/Vol] 7.03 mg/dL High 0.70-1.30 [facility] Comment on above: Performed By: #### L [id number] #### [facility] ([facility]) [address] [place] [address] GLOMERULAR FILTRATION RATE ML/MIN/1.73 SQ M.PREDICTED 7.9 mL/min/1.73m*2 Low >60.0 [facility] Comment on above: Result Comment: [facility]???s estimated glomerular filtration rate (eGFR) will [...] individuals. Performed By: #### L [id number] #### [facility] ([facility]) [address] [place] [address] Glucose [Mass/Vol] 96 mg/dL Normal 70-[address] [facility] Comment on above: Performed By: #### L [id number] #### [facility] ([facility]) [address] [place] [address] Potassium [Moles/Vol] 3.4 mmol/L Low 3.5-5.1 [facility] Comment on above: Performed By: #### L [id number] #### [facility] ([facility]) [address] [place] [address] Sodium [Moles/Vol] 136 mmol/L Normal 136-[address] [facility] Comment on above: Performed By: #### L [id number] #### [facility] ([facility]) [address] [place] [address] Urea nitrogen [Mass/Vol] 19 mg/dL Normal 7-25 [facility] Comment on above: Performed By: #### L [id number] #### [facility] ([facility]) [address] [place] [address] UREA NITROGEN/CREATININE (MASS RATIO) IN SER/PLAS 2.7 Normal [facility] Comment on above: Performed By: #### L [id number] #### [facility] ([facility]) [address] [place] [address] CBCon 01-18-2023 Erythrocyte distribution width (RBC) [Ratio] 14.2 % Normal 11.5-15.0 [facility] Comment on above: Performed By: #### L [id number] ####[facility] ([facility])[address] [place] [address] ERYTHROCYTE MEAN CORPUSCULAR HEMOGLOBIN CONCENTRATION (G/DL) BY AUTOMATED 33.2 g/dL Normal 32.0-35.0 [facility] Comment on above: Performed By: #### L [id number] ####[facility] ([facility])[address] [place] [address] Hematocrit (Bld) [Volume fraction] 35.8 % Low 39.0-55.0 [facility] Comment on above: Performed By: #### L [id number] ####[facility] ([facility])[address] [place] [address] Hemoglobin (Bld) [Mass/Vol] 11.9 g/dL Low 13.0-17.0 [facility] Comment on above: Performed By: #### L [id number] ####[facility] ([facility])[address] [place] [address] MCH (RBC) [Entitic mass] 31.2 pg Normal 27.0-33.0 [facility] Comment on above: Performed By: #### L [id number] ####[facility] ([facility] [place] [address] MCV (RBC) [Entitic vol] 93.7 fL Normal 82.0-98.0 [facility] Comment on above: Performed By: #### L [id number] ####[facility] ([facility])[address] [place] [address] PLATELETS (10*3/UL) IN BLOOD AUTOMATED COUNT 189 10*3/uL Normal 150-400 [facility] Comment on above: Performed By: #### L [id number] ####[facility] ([facility])[address] [place] [address] RBC (Bld) [#/Vol] 3.82 10*6/uL Low 4.20-5.70 [facility] Comment on above: Performed By: #### L [id number] ####[facility] ([facility])[address] [place] [address] WBC (Bld) [#/Vol] 6.40 10*3/uL Normal 4.00-10.60 [facility] Comment on above: Performed By: #### L [id number] ####[facility] ([facility])[address] [place] [address] Labon 01-18-2023 Lab [id number] Corbin Murphy 1955 [facility] Provider Department [place] 01/18/2023 [facility] OPD LAB RESOURCE [facility] OPD [facility] No family history on file Normal [facility] MRSA/MSSA DNA NASALon 2022 MRSA DNA Negative Normal Negative [facility] Comment on above: Order Comment: Testi [...] preclude nasal colonization. Performed By: #### L [id number] ####[facility] ([facility])[address] [place] [address] MSSA DNA Negative Normal Negative [facility] Comment on above: Order Comment: Testi [...] preclude nasal colonization. Performed By: #### L [id number] ####[facility] ([facility])[address] [place] [address] NURSNOTEon 01-18-2023 NURSNOTE Prescription filled and sent home with patient. Cont with + thrill and bruit. Stable for DC home. Normal [facility] NURSNOTE DC instructions reviewed with patient and mother, copy given. Normal [facility] OPNOTEon 01-18-2023 OPNOTE -- Attestation signed by Evelyn Alarcon MD at 01/18/2023 2:03 PM I was present for the entire procedure. DATE OF PROCEDURE: 01/18/23 PATIENT NAME: Corbin Murphy SURGEON: * Evelyn Alarcon - Primary ASSISTANTS: Ana Snyder MD STAFF: Sr. Manager Marketing: Clifford Cheek RN Scrub Person: VELVET Schumacher Sr. Manager Marketing: NINOSKA CANO Scrub: Ron Gama CST PRE-OP DIAGNOSIS: ESRD POST-OP DIAGNOSIS: same PROCEDURE: Procedure(s): Right Radial Cephalic Fistula Creation - CPT Codes 06092,71403,72414,3683 0 (Right) ANESTHESIA: General EBL: 5 mL [...] Alarcon was present for the entire procedure. Normal [facility] Orders Onlyon 01-18-2023 Orders Only [id number] Corbin Murphy 1955 [facility] Provider Department [place] 01/18/2023 [address] [place] [facility] No family history on file Normal [facility] POCT GLUCOSE METER UNSOLICIT ED RESULTSon 01-18-2023 Glucose [Mass/Vol] 116 mg/dL High 70-[address] [facility] Comment on above: Order Comment: Waive d Testing in the ED is performed under the ED CLIA certificate #[id number]. Result Comment: rtat e Performed By: #### L [id number] #### [facility] ([facility]) [address] [place] [address] POCT PERFUSION PANEL UNSOLIC ITED RESULTSon 01-18-2023 CO2 [Moles/Vol] 28.0 mmol/L Normal 21.0-29.0 [facility] Comment on above: Performed By: #### L [id number] ####[facility] ([facility])[address] [place] [address] Glucose [Mass/Vol] 116 mg/dL High 70-[address] [facility] Comment on above: Performed By: #### L [id number] ####[facility] ([facility]ER)[address] [place] [address] HCO3 (Bld) [Moles/Vol] 26.8 mmol/L Normal 23.0-28.0 [facility] Comment on above: Performed By: #### L [id number] ####[facility] ([facility])[address] [place] [address] Hematocrit (Bld) [Volume fraction] 36 % Low 38-51 [facility] Comment on above: Performed By: #### L [id number] ####[facility] ([facility])[address] [place] [address] Hemoglobin (Bld) [Mass/Vol] 12.2 g/dL Normal 12.0-17.0 [facility] Comment on above: Performed By: #### L [id number] ####[facility] ([facility])[address] [place] [address] POCT BASE EXCESS 2.0 mmol/L Normal -2.0-3.0 [facility] Comment on above: Performed By: #### L [id number] ####[facility] ([facility])[address] [place] [address] POCT IONIZED CALCIUM 1.24 mmol/L Normal 1.12-1.32 [facility] Comment on above: Performed By: #### L [id number] ####[facility] ([facility])[address] [place] [address] POCT PCO2 43.4 mmHg Normal 41.0-51.0 [facility] Comment on above: Performed By: #### L [id number] ####[facility] ([facility])[address] [place] [address] POCT PH 7.40 Normal 7.31-7.41 [facility] Comment on above: Performed By: #### L [id number] ####[facility] ([facility])[address] [place] [address] POCT PO2 43 mmHg Low 80-105 [facility] Comment on above: Performed By: #### L [id number] ####[facility] ([facility])[address] [place] [address] POCT SO2 78 % Low 95-98 [facility] Comment on above: Performed By: #### L [id number] ####[facility] ([facility])[address] [place] [address] Potassium [Moles/Vol] 3.5 mmol/L Normal 3.5-4.9 [facility] Comment on above: Performed By: #### L [id number] ####[facility] ([facility])[address] [place] [address] Sodium [Moles/Vol] 135 mmol/L Low 138.0-146.0 [facility] Comment on above: Performed By: #### L [id number] ####[facility] ([facility])[address] [place] [address] PROTIME-INRon 01-18-2023 INR IN PPP BY COAGULATION ASSAY 1.00 Normal 0.90-1.10 [facility] Comment on above: Result Comment: ACCC [...] 1995;108:231S-246S. Performed By: #### L [id number] #### [facility] ([facility]) [address] [place] [address] PROTHROMBIN TIME (PT) IN PPP BY COAGULATION ASSAY 13.2 Seconds Normal 12.3-14.8 [facility] Comment on above: Performed By: #### L [id number] #### [facility] ([facility]) [address] [place] [address] Orders Onlyon 01-16-2023 Orders Only [id number] Corbin Murphy 1955 M Date Provider Department Center 01/16/2023 [facility]BE [facility] [facility] family history on file Normal [facility] ANESon 01-15-2023 ANES Physical Exam Airway Mallampati: III TM distance: >3 FB Neck ROM: full Cardiovascular Rhythm: regular Rate: normal Dental Pulmonary Plan ASA 3 Moderate Normal [facility] HPon 01-15-2023 HP History Of Present [...] Myocardial infarction (CMS/HCC), and Peripheral vascular disease ([facility]/HCC). Surgical History He has a past surgical [...] ESRD (end stage renal disease) on dialysis ([facility]) [N18.6, Z99.2 (ICD-10-CM)] Right: Patent radial inflow artery with volume flow of 214 ml/min. Patent radial artery with biphasic waveforms. Average volume flow within radial to cephalic arteriovenous fistula is 410 ml/min. Patent outflow proximal cephalic vein with no evidence of stenosis or narrowing. Patent subclavian spectral Doppler waveforms. Notes: Indication: ESRD (end stage renal disease) on dialysis ([facility]) [N18.6, Z99.2 (ICD-10-CM)] Right: Patent radial inflow [...] Problems: End stage renal disease on dialysis ([facility]) Encounter for pre-operative examination 67 yo male with history of right upper extremity AVF who presents today for fistulogram Fistulogram today, if procedure goes well patient can be discharged after procedure. Ana Phan MD PGY-4 Vascular Surgery Resident 01/15/23 [facility] [place] 01-15-2023 ROXANNA RN educated pt on d/ c instructions. RN encouraged pt to voice any questions or concerns. Pt verbalizes no questions or concerns at this time. Pt was wheeled off of unit with all of belongings. [facility] Orders Onlyon 01-10-2023 Orders Only [id number] Corbin Murphy 1955 M [facility] Provider Department Center 01/10/2023 BEBE VICKERS [facility]CV[facility]ENDO [facility] No family history on file [facility] Follow-Upon 01-09-2023 Follow-Up [id number] Corbin Murphy 1955 [facility] Provider Department Center 01/09/2023 DEIDRE GREEN [facility]CV[facility]ENDO [place] [facility] No family history on file Level of Service:58321 [place] OFFICE/OUTPATIENT ESTABLISHED LOW MDM 20-29 MIN Reason for Visit and Comments: Follow-up [624201] - radiocephalic AV fistula creation 10/04/22 [facility] Follow-Upon 10-16-2022 Follow-Up [id number] Corbin Murphy 1955 [facility] Provider Department Center 10/16/2022 116-ROSANNE ESPINOZA HVCVASENDO [facility] No family history on file Level of Service:27018 [place] OFFICE/OUTPT VISIT,PROCEDURE ONLY Reason for Visit and Comments: Follow-up [905448] - 2 week post op R AVF creation [facility] HPon 10-02-2022 [facility] Vascular Surgery HISTORY & PHYSICAL Reason for Admission: Right AV fistula creation History of Present Illness: Corbin Murphy is a 66 y.o. male with PMH significant for ESRD, diabetes, anemia, HTN, HLD, hypothyroidism, [place], and peripheral vascular disease. He presents today [...] kidney disease Coronary artery disease Diabetes mellitus (CMS/HCC) Heart disease Hyperlipidemia Hypertension Hypothyroidism Myocardial infarction (CMS/HCC) Peripheral vascular disease (CMS/HCC) Past Surgical History: Procedure Laterality Date AV [...] for ESRD, diabetes, anemia, HTN, HLD, hypothyroidism, [place], and peripheral vascular disease who presents today for right AV fistula creation. Plan: Will proceed with right AV fistula creation today with Dr. Alarcon Risks, benefits, and alternatives were discussed with patient and he is agreeable Jessee Mitchell MD General Surgery Resident, PGY-1 Vascular Surgery Service 10/02/22 [facility] OPNOTEon 10-02-2022 OPNOTE -- Attestation signed by Evelyn Alarcon MD at 10/04/2022 12:14 PM I was [...] Halley Gutierrez MD General Surgery PGY4 10/03/2022 [facility] POCT PERFUSION PANEL UNSOLIC ITED RESULTSon 10-02-2022 CO2 [Moles/Vol] 26.0 mmol/L Normal 21.0-29.0 [facility] Comment on above: Performed By: #### L [id number] #### [facility] ([facility]) [address] [place] [address] Glucose [Mass/Vol] 154 mg/dL High 70-[address] [facility] Comment on above: Performed By: #### L [id number] #### [facility] ([facility]) [address] [place] [address] HCO3 (Bld) [Moles/Vol] 24.5 mmol/L Normal 23.0-28.0 [facility] Comment on above: Performed By: #### L [id number] #### [facility] ([facility]) [address] [place] [address] Hematocrit (Bld) [Volume fraction] 43 % Normal 38-51 [facility] Comment on above: Performed By: #### L [id number] #### [facility] ([facility]) [address] [place] [address] Hemoglobin (Bld) [Mass/Vol] 14.6 g/dL Normal 12.0-17.0 [facility] Comment on above: Performed By: #### L [id number] #### [facility] ([facility]) [address] [place] [address] POCT BASE EXCESS -1.0 mmol/L Normal -2.0-3.0 [facility] Comment on above: Performed By: #### L [id number] #### [facility] ([facility]) [address] [place] [address] POCT IONIZED CALCIUM 1.26 mmol/L Normal 1.12-1.32 [facility] Comment on above: Performed By: #### L [id number] #### [facility] ([facility]) [address] [place] [address] POCT PCO2 41.3 mmHg Normal 41.0-51.0 [facility] Comment on above: Performed By: #### L [id number] #### [facility] ([facility]) [address] [place] [address] POCT PH 7.38 Normal 7.31-7.41 [facility] Comment on above: Performed By: #### L [id number] #### [facility] ([facility]) [address] [place] [address] POCT PO2 45 mmHg Low 80-105 [facility] Comment on above: Performed By: #### L [id number] #### [facility] [address] [place] [address] POCT SO2 79 % Low 95-98 [facility] Comment on above: Performed By: #### L [id number] #### [facility] ([facility]) [address] [place] [address] Potassium [Moles/Vol] 4.2 mmol/L Normal 3.5-4.9 [facility] Comment on above: Performed By: #### L [id number] #### [facility] ([facility] [address] [place] [address] Sodium [Moles/Vol] 137 mmol/L Low 138.0-146.0 [facility] Comment on above: Performed By: #### L [id number] #### [facility] ([facility]) [address] [place] [address] [place] Arterial and Venous Mappi ngon 08-17-2022 [place] Arterial and Venous Mapping Normal [facility] Consent for Treatmenton Consent for Treatment [id number]#1.0 0CD:127 Normal [facility] Coding Queryon 08-10-2022 Coding Query [facility] Outside Recordson 08-02-2022 Outside Records [id number]#1.0 0CD:127 Normal [facility] Consent for Treatmenton 07-12 Consent for Treatment [id number]#1.0 0CD:127 Normal [facility] Heart and Vascular Office/Cl inic Noteon 07-30-2022 Heart and Vascular Office/Clinic Note Normal [facility] Comment on above: Result Comment: Elec tronically Signed By: Dorian FISH, Evelyn Lopez\.br\Date and Time Signed: 07/30/22 09:29 EDT Outside Recordson 07-30-2022 Outside Records [id number]#1.00 CD:127 Normal [facility] Physician Orderon 07-30-2022 Physician Order [id number]#1. 00CD:127 [facility] Progress Note-Physicianon Progress Note-Physician [facility] Comment on above: Result Comment: Elec tronically Signed By: Vijaya SANDOVAL\.br\Date and Time Signed: 07/15/22 12:01 EDT\.br\Electronically Co-Signed By: Vijaya SANDOVAL\.br\Date and Time Co-Signed: 07/15/22 12:02 EDT\.br\Electronically Co-Signed By: Fuentes Rodriguez MD\.br\Date and Time Co-Signed: 07/23/22 07:37 EDT C Blood Charcoalon Blood Culture Charcoal [facility] Comment on above: Performed By: #### 1 [id number] ####[facility] [address] [place] [address] Blood Culture Charcoal Normal [facility] Comment on above: Performed By: #### 1 [id number] ####[facility] [address] [place] [address] Discharge Instructionson Discharge Instructions [id number]#1.0 0CD:127 Normal [facility] Monitor Recordon 07-20-2022 Monitor Record [id number]#1. 00CD:127 Normal [facility] Transfer Documentson 023 Transfer Documents [id number]#1.0 0CD:127 Normal [facility] BMPon 07-19-2022 Creatinine [Mass/Vol] 7.7 mg/dL Abnormal 0.5-1.3 [facility] Comment on above: Result Comment: Crit ical Result verified by previous result\Critical Result S_CREA:7.70 Called to JAVI RENETTA AT 3S by CATHY LERNER And Read Back For Confirmation at: 07/19/2022 08:27:40\Result S_CREA:7.70 Called to JAVI JACKSON AT 3S by CATHY LERNER And Read Back For Confirmation at: 07/19/2022 08:27:40 Performed By: #### 1 [id number], 3122795, 4756097 ####[facility] [address] [place] [place] [address] Anion gap [Moles/Vol] 9 mmol/L Normal 6-16 [facility] Comment on above: Performed By: #### 1 1800909, 0545851, 9934454 ####[facility] [address] [place] [address] Calcium [Mass/Vol] 8.0 mg/dL Low 8.9-11.1 [facility] Comment on above: Performed By: #### 1 4139633, 7727071, 9581847 ####[facility] [address] [place] [address] Chloride [Moles/Vol] 104 mmol/L Normal 101-[address] [facility] Comment on above: Performed By: #### 1 5634176, 3492549, 3641145 ####[facility] [address] Ave[address] [place] [address] CO2 [Moles/Vol] 27 mmol/L Normal 21-31 [facility] Comment on above: Performed By: #### 1 0963689, 1674198, 2195416 ####[facility] [address] [place] [address] Glucose [Mass/Vol] 180 mg/dL Normal 55-199 [facility] Comment on above: Result Comment: If t his glucose result represents a fasting glucose, interpretation should refer to the following reference range: 55-99 mg/dL Performed By: #### 1 5949307, 4953471, 4961744 ####[facility] [address] [place] [address] Potassium [Moles/Vol] 3.7 mmol/L Normal 3.5-5.3 [facility] Comment on above: Performed By: #### 1 0777092, 0886039, 1091074 ####[facility] [address] [place] [address] Sodium [Moles/Vol] 136 mmol/L Normal 135-145 [facility] Comment on above: Performed By: #### 1 9547476, 3071410, 3934173 ####[facility] [address] [place] [address] Urea nitrogen [Mass/Vol] 18 mg/dL Normal 5-21 [facility] Comment on above: Performed By: #### 1 4442866, 9480835, 1394397 ####[facility] [address] [place] [address] Urea nitrogen/Creatinine [Mass ratio] 2 No Units Low 10-20 [facility] Comment on above: Performed By: #### 1 7954505, 3425021, 0232071 ####[facility] [address] [place] [address] C Blood Charcoalon 3 Blood Culture Charcoal Normal [facility] Comment on above: Performed By: #### 1 3936414 ####[facility] [address] [place] [address] CBC w/Indiceson 07-19-2022 Erythrocyte distribution width (RBC) [Ratio] 17.6 % High 10.9-14.2 [facility] Comment on above: Performed By: #### 1 1987858, 2314930, 7275300 ####[address] [place] [address] Hematocrit (Bld) [Volume fraction] 25.0 % Low 37.7-49.0 [facility] Comment on above: Performed By: #### 1 1696342, 8671082, 0615056 ####[address] [place] [address] Hemoglobin (Bld) [Mass/Vol] 8.3 g/dL Low 13.5-17.5 [facility] Comment on above: Performed By: #### 1 5505882, 6282386, 4772281 ####[place] MCH (RBC) [Entitic mass] 30.0 pg Normal 27.0-34.0 [facility] Comment on above: Performed By: #### 1 0529963, 5279438, 9447662 ####[address] MCHC (RBC) [Mass/Vol] 33.4 g/dL Normal 31.4-36.0 [facility] Comment on above: Performed By: #### 1 7257805, 0070102, 0883712 ####[address] [address] MCV (RBC) [Entitic vol] 90.1 fL Normal 80.0-100.0 [facility] Comment on above: Performed By: #### 1 4263562, 6744723, 7793176 ####[address] [address] Platelet mean volume (Bld) [Entitic vol] 8.0 fL Normal 6.4-10.8 [facility] Comment on above: Performed By: #### 1 7248207, 2335380, 4475659 ####[address] [address] Platelets (Bld) [#/Vol] 204.0 E9/L Normal 150.0-500.0 [facility] Comment on above: Performed By: #### 1 9832593, 0248230, 8563278 ####[facility] [address] [place] [address] RBC (Bld) [#/Vol] 2.8 E12/L Low 4.3-5.9 [facility] Comment on above: Performed By: #### 1 1025814, 8175489, 8640804 ####[facility] [address] [place] [address] WBC corrected for nucl RBC Auto (Bld) [#/Vol] 6.1 E9/L Normal 4.0-11.0 [facility] Comment on above: Performed By: #### 1 7150809, 9467011, 5752286 ####[facility] [address] [place] [address] Capillary Glucose POCon Glucose [Mass/Vol] 198 mg/dL High 55-99 [facility] Comment on above: Result Comment: Run Lab ConfirmationNo Coverage GivenInsulin Started Performed By: #### 2 [id number] ####[facility] [address] [place] [address] Glucose [Mass/Vol] 187 mg/dL High - [facility] Comment on above: Result Comment: Ambrocio ELIAS Performed By: #### 2 31468591 ####[facility] [address] [place] [address] Glucose [Mass/Vol] 110 mg/dL High - [facility] Comment on above: Result Comment: Ambrocio ELIAS Performed By: #### 2 53009970 ####[facility] [address] [place] [address] Glucose [Mass/Vol] 162 mg/dL High 55-99 [facility] Comment on above: Result Comment: Ambrocio ELIAS Performed By: #### 2 79035775 ####[facility] [address] [place] [address] Echo Transthoracic Completeo n 06-08-2023 Echo Transthoracic Complete Normal [facility] Inpatient Clinical Summaryon 07-19-2022 Inpatient Clinical Summary Normal [facility] Inpatient Patient Summaryon 07-19-2022 Inpatient Patient Summary Normal [facility] Inpatient Patient Summary [facility] Interdisciplinary Note - Paresh e Manageron 07-19-2022 Interdisciplinary Note - Plate And Weld Inspector [facility] Comment on above: Result Comment: Elec tronically Signed By: Sarah Tena\.br\Date and Time Signed: 07/19/22 10:50 EDT Monitor Recordon 07-19-2022 Monitor Record [id number]#1. 00CD:127 Normal [facility] Monitor Record [id number]#1. 00CD:127 [facility] Monitor Record [id number]#1. 00CD:127 [facility] Monitor Record [id number]#1. 00CD:127 [facility] Monitor Record [id number]#1. 00CD:127 [facility] Progress Note-Nurseon 2022 Progress Note-Nurse [id number]#1. 00CD:127 [facility] Progress Note-Nurse [id number]#1. 00CD:127 [facility] Progress Note-Physicianon Progress Note-Physician [facility] Comment on above: Result Comment: Elec tronically Signed By: Cristino Walker MD\.br\Date and Time Signed: 07/19/22 09:34 EDT eGFRon 07-19-2022 GFR/1.73 sq M.predicted among non-blacks MDRD (S/P/Bld) [Vol rate/Area] 7 mL/min/1.73 m2 Low >=59 [facility] Comment on above: Order Comment: Order added by Discern Expert. Result Comment: Rotary Surface Grinder jm kidney disease could be indicated at eGFR's of less than 60 mL/min/1.73m2. Kidney failure is indicated at less than 15 mL/min/1.73m2. Performed By: #### 1 6324228, 0492917, 6450719 ####[facility] [address] [place] [address] BMPon 07-18-2022 Creatinine [Mass/Vol] 9.7 mg/dL Abnormal 0.5-1.3 [facility] Comment on above: Result Comment: Crit ical Result verified by repeat analysis\Critical Result S_CREA:9.70 Called to MARC SRINIVASAN AT 3S by DK DAVIES And Read Back For Confirmation at: 07/18/2022 07:11:52\Result S_CREA:9.70 Called to MARC SRINIVASAN AT 3S by DK DAVIES And Read Back For Confirmation at: 07/18/2022 07:11:52 Performed By: #### 2 314364, 0662488, 6123813, 01385061 ####[facility] [address] [place] [address] Anion gap [Moles/Vol] 15 mmol/L Normal 6-16 [facility] Comment on above: Performed By: #### 2 191236, 5443455, 0577760, 22746807 ####[facility] [address] [place] [address] Calcium [Mass/Vol] 8.1 mg/dL Low 8.9-11.1 [facility] Comment on above: Performed By: #### 2 822250, 5781054, 6241813, 92077171 ####[facility] [address] [place] [address] Chloride [Moles/Vol] 104 mmol/L Normal 101-[address] [facility] Comment on above: Performed By: #### 2 433903, 3575096, 9183459, 32406016 ####[facility] [address] AveN[place] [address] CO2 [Moles/Vol] 23 mmol/L Normal 21-31 [facility] Comment on above: Performed By: #### 2 835520, 7340630, 4729572, 44800475 ####[facility] [address] [place] [address] Glucose [Mass/Vol] 131 mg/dL Normal 55-199 [facility] Comment on above: Result Comment: If t his glucose result represents a fasting glucose, interpretation should refer to the following reference range: 55-99 mg/dL Performed By: #### 2 522681, 2055652, 0860281, 66807378 ####[facility] [address] [place] [address] Potassium [Moles/Vol] 3.8 mmol/L Normal 3.5-5.3 [facility] Comment on above: Performed By: #### 2 407961, 9271063, 7925714, 65083620 ####[facility] [address] [place] [address] Sodium [Moles/Vol] 138 mmol/L Normal 135-145 [facility] Comment on above: Performed By: #### 2 784701, 8937882, 6806311, 02883795 ####[facility] [address] [place] [address] Urea nitrogen [Mass/Vol] 29 mg/dL High 5-21 [facility] Comment on above: Performed By: #### 2 801976, 4702405, 4826017, 29522843 ####[facility] [address] [place] [address] Urea nitrogen/Creatinine [Mass ratio] 3 No Units Low 10-20 [facility] Comment on above: Performed By: #### 2 860806, 8777116, 6734589, 82676463 ####[facility] [address] [place] [address] C Tissueon 07-18-2022 Tissue Culture Normal [facility] Comment on above: Performed By: #### 2 719689 ####[facility] [address] [place] [address] CBC w/Indiceson 07-18-2022 Erythrocyte distribution width (RBC) [Ratio] 17.2 % High 10.9-14.2 [facility] Comment on above: Performed By: #### 2 370504, 0432790, 9924373, 53937345 ####[address] [place] [address] Hematocrit (Bld) [Volume fraction] 25.0 % Low 37.7-49.0 [facility] Comment on above: Performed By: #### 2 684380, 5185746, 9422264, 13159443 ####[address] [place] [address] Hemoglobin (Bld) [Mass/Vol] 8.5 g/dL Low 13.5-17.5 [facility] Comment on above: Performed By: #### 2 525715, 2419401, 7107407, 02691456 ####[address] [address] MCH (RBC) [Entitic mass] 30.3 pg Normal 27.0-34.0 [facility] Comment on above: Performed By: #### 2 796802, 4439690, 4600903, 51821953 ####[address] [address] MCHC (RBC) [Mass/Vol] 33.9 g/dL Normal 31.4-36.0 [facility] Comment on above: Performed By: #### 2 806768, 0382152, 6386227, 86245805 ####[address] [place] [address] MCV (RBC) [Entitic vol] 89.4 fL Normal 80.0-100.0 [facility] Comment on above: Performed By: #### 2 279578, 2178710, 7018930, 96604588 ####[address] [address] Platelet mean volume (Bld) [Entitic vol] 7.2 fL Normal 6.4-10.8 [facility] Comment on above: Performed By: #### 2 074704, 9791232, 9903104, 04550113 ####[address] [place] [address] Platelets (Bld) [#/Vol] 187.0 E9/L Normal 150.0-500.0 [facility] Comment on above: Performed By: #### 2 713821, 3410952, 0462031, 24942159 ####[facility] [address] [place] [address] RBC (Bld) [#/Vol] 2.8 E12/L Low 4.3-5.9 [facility] Comment on above: Performed By: #### 2 349512, 0038736, 7902765, 19936486 ####[address] [address] WBC corrected for nucl RBC Auto (Bld) [#/Vol] 5.6 E9/L Normal 4.0-11.0 [facility] Comment on above: Performed By: #### 2 297349, 0231091, 6927887, 50905978 ####[address] [place] [address] Capillary Glucose POCon 06-0 Glucose [Mass/Vol] 288 mg/dL High 55-99 [facility] Comment on above: Result Comment: Ambrocio ELIAS Performed By: #### 2 41605059 ####[address] [place] [address] Glucose [Mass/Vol] 267 mg/dL High 55-99 [facility] Comment on above: Result Comment: Ambrocio ELIAS Performed By: #### 2 92734099 ####[address] [place] [address] Glucose [Mass/Vol] 122 mg/dL High 55-99 [facility] Comment on above: Result Comment: Ambrocio ELIAS Performed By: #### 2 25496333 ####[facility] [address] [place] [address] Glucose [Mass/Vol] 129 mg/dL High 55-99 [facility] Comment on above: Result Comment: Ambrocio vargas RN/ Performed By: #### 2 72330137 ####[facility] [address] [place] [address] Interdisciplinary Note - Paresh e Manageron 07-18-2022 Interdisciplinary Note - Plate And Weld Inspector [facility] Comment on above: Result Comment: Elec tronically Signed By: Alaina Ragland RN\.br\Date and Time Signed: 07/18/22 11:15 EDT IntraOperative Documentson 0 07-18-2022 IntraOperative Documents [id number]#1. 00CD:127 [facility] Message from Medicareon 06-0 Message from Medicare [id number]#1. 00CD:127 [facility] Message from Medicare [id number]#1.0 0CD:127 [facility] Monitor Recordon 07-18-2022 Monitor Record [id number]#1. 00CD:127 [facility] Monitor Record [id number]#1. 00CD:127 [facility] Monitor Record [id number]#1. 00CD:127 [facility] Monitor Record [id number]#1. 00CD:127 [facility] Progress Note - Pharmacyon 0 07-18-2022 Progress Note - Pharmacy [facility] Progress Note-Physicianon Progress Note-Physician [facility] Comment on above: Result Comment: Elec tronically Signed By: Vijaya SANDOVAL\.br\Date and Time Signed: 07/18/22 13:34 EDT\.br\Electronically Co-Signed By: Pedro ARAUZ MD\.br\Date and Time Co-Signed: 07/18/22 16:54 EDT Progress Note-Physician Normal [facility] Comment on above: Result Comment: Elec tronically Signed By: Sarah Torres NP\.br\Date and Time Signed: 07/17/22 18:08 EDT\.br\Electronically Co-Signed By: Vane Miller MD\.br\Date and Time Co-Signed: 07/18/22 13:58 EDT Progress Note-Physician Normal [facility] Comment on above: Result Comment: Elec tronically Signed By: Vane Miller MD\.br\Date and Time Signed: 07/18/22 13:15 EDT Progress Note-Physician Normal [facility] Comment on above: Result Comment: Elec tronically Signed By: Vijaya SANDOVAL\.br\Date and Time Signed: 07/17/22 11:34 EDT\.br\Electronically Co-Signed By: Pedro ARAUZ MD\.br\Date and Time Co-Signed: 07/18/22 08:23 EDT Vanco Troughon 07-18-2022 VANCOMYCIN 19 microgram/mL Normal 10-20 [facility] Comment on above: Order Comment: Plejarred e draw one hour prior to next dose at on . Thank you. Performed By: #### 2 554026, 1031542, 6180116, 11611111 ####[facility] [address] [place] [address] eGFRon 07-18-2022 GFR/1.73 sq M.predicted among non-blacks MDRD (S/P/Bld) [Vol rate/Area] 5 mL/min/1.73 m2 Low >=59 [facility] Comment on above: Order Comment: Order added by Discern Expert. Result Comment: Rotary Surface Grinder jm kidney disease could be indicated at eGFR's of less than 60 mL/min/1.73m2. Kidney failure is indicated at less than 15 mL/min/1.73m2. Performed By: #### 2 524610, 2281099, 5394017, 04510978 ####[facility] [address] [place] [address] BMPon 07-17-2022 Creatinine [Mass/Vol] 8.0 mg/dL Abnormal 0.5-1.3 [facility] Comment on above: Result Comment: Crit ical Result verified by repeat analysis\Critical Result S_CREA:8.00 Called to SILVIO ARZOLA AT 3S by MARC ROSALES And Read Back For Confirmation at: 07/17/2022 09:09:10\Result S_CREA:8.00 Called to SILVIO ARZOLA AT 3S by MARC ROSALES And Read Back For Confirmation at: 07/17/2022 09:09:10 Performed By: #### 1 9106265, 4069210 ####[facility] [address] [place] [address] Urea nitrogen [Mass/Vol] 23 mg/dL High 5-21 [facility] Comment on above: Performed By: #### 1 6077930, 3478718 ####[facility] [address] [place] [address] Urea nitrogen/Creatinine [Mass ratio] 3 No Units Low 10-20 [facility] Comment on above: Performed By: #### 1 7663695, 7959828 ####[facility] [address] [place] [address] Anion gap [Moles/Vol] 14 mmol/L Normal 6-16 [facility] Comment on above: Performed By: #### 1 5924573, 8490666 ####[facility] [address] [place] [address] Calcium [Mass/Vol] 7.8 mg/dL Low 8.9-11.1 [facility] Comment on above: Performed By: #### 1 1509051, 4305467 ####[facility] [address] [place] [address] Chloride [Moles/Vol] 100 mmol/L Low 101-[address] [facility] Comment on above: Performed By: #### 1 6527557, 5333920 ####[facility] [address] [place] [address] CO2 [Moles/Vol] 27 mmol/L Normal 21-31 [facility] Comment on above: Performed By: #### 1 2764776, 4131329 ####[facility] [address] [place] [address] Glucose [Mass/Vol] 195 mg/dL Normal 55-199 [facility] Comment on above: Result Comment: If t his glucose result represents a fasting glucose, interpretation should refer to the following reference range: 55-99 mg/dL Performed By: #### 1 7469423, 0082683 ####[address] [address] Potassium [Moles/Vol] 4.1 mmol/L Normal 3.5-5.3 [facility] Comment on above: Performed By: #### 1 3167811, 6855758 ####[facility] [address] [place] [address] Sodium [Moles/Vol] 137 mmol/L Normal 135-145 [facility] Comment on above: Performed By: #### 1 0279851, 2373845 ####[facility] [address] [place] [address] Capillary Glucose POCon 06-0 Glucose [Mass/Vol] 243 mg/dL High 55-99 [facility] Comment on above: Result Comment: Ambrocio ELIAS Performed By: #### 2 22779690 ####[facility] [address] [place] [address] Glucose [Mass/Vol] 327 mg/dL High 55-99 [facility] Comment on above: Result Comment: Ambrocio ELIAS Performed By: #### 2 48838516 ####[facility] [address] [place] [address] Glucose [Mass/Vol] 290 mg/dL High 55-99 [facility] Comment on above: Result Comment: Ambrocio ELIAS Performed By: #### 2 27184130 ####[facility] [address] [place] [address] Glucose [Mass/Vol] 188 mg/dL High 55-99 [facility] Comment on above: Result Comment: Ambrocio vargas RN/ Performed By: #### 2 [id number] ####[facility] [address] [place] [address] Consent for Anesthesiaon Consent for Anesthesia [id number]#1. 00CD:127 Normal [facility] H&P Updateon 07-17-2022 H&P Update [id number]#1. 00CD:127 Normal [facility] Interdisciplinary Note - Paresh e Manageron 07-17-2022 Interdisciplinary Note - Plate And Weld Inspector [facility] Comment on above: Result Comment: Elec tronically Signed By: Sarah Tena\.br\Date and Time Signed: 07/17/22 11:30 EDT IntraOperative Documentson 0 07-17-2022 IntraOperative Documents [id number]#1. 00CD:127 [facility] Main OR Intraoperative Recor don 07-17-2022 Main OR Intraoperative Record [facility] Monitor Recordon 07-17-2022 Monitor Record [id number]#1. 00CD:127 Normal [facility] Monitor Record [id number]#1. 00CD:127 Normal [facility] Operative Reporton Operative Report Normal [facility] Comment on above: Result Comment: Elec tronically Signed By: Dorian FISH, Evelyn Lopez\.br\Date and Time Signed: 07/17/22 13:42 EDT Progress Note-Physicianon Progress Note-Physician [facility] Comment on above: Result Comment: Elec tronically Signed By: Gino Feliz Jr, DO\.br\Date and Time Signed: 07/17/22 17:48 EDT Progress Note-Physician Normal [facility] Comment on above: Result Comment: Elec tronically Signed By: Alfredo Acosta M.D\Date and Time Signed: 07/17/22 14:03 EDT eGFRon 07-17-2022 GFR/1.73 sq M.predicted among non-blacks MDRD (S/P/Bld) [Vol rate/Area] 7 mL/min/1.73 m2 Low >=59 [facility] Comment on above: Order Comment: Order added by Discern Expert. Result Comment: Rotary Surface Grinder jm kidney disease could be indicated at eGFR's of less than 60 mL/min/1.73m2. Kidney failure is indicated at less than 15 mL/min/1.73m2. Performed By: #### 1 [id number], [id number] ####[facility] [address] [place] [address] BMPon 07-16-2022 Creatinine [Mass/Vol] 11.6 mg/dL Abnormal 0.5-1.3 [facility] Comment on above: Result Comment: Crit ical Result verified by previous result\Critical Result S_CREA:11.60 Called to SILVIO ARZOLA AT 3S by CATHY LERNER And Read Back For Confirmation at: 07/16/2022 11:03:55\Result S_CREA:11.60 Called to SILVIO ARZOLA AT 3S by CATHY LERNER And Read Back For Confirmation at: 07/16/2022 11:03:55 Performed By: #### 1 8868597, 8312590, 6294712, 88112546 ####[facility] [address] [place] [address] Anion gap [Moles/Vol] 17 mmol/L High 6-16 [facility] Comment on above: Performed By: #### 1 5330815, 7480783, 6576466, 13576562 ####[facility] [address] [place] [address] Calcium [Mass/Vol] 8.4 mg/dL Low 8.9-11.1 [facility] Comment on above: Performed By: #### 1 5285830, 3081956, 4119321, 75324015 ####[facility] [address] [place] [address] Chloride [Moles/Vol] 100 mmol/L Low 101-111 [facility] Comment on above: Performed By: #### 1 6213530, 9204769, 3040082, 69900986 ####[facility] [address] [place] [address] CO2 [Moles/Vol] 24 mmol/L Normal 21-31 [facility] Comment on above: Performed By: #### 1 2072288, 0857371, 9325739, 40301157 ####[facility] [address] [place] [address] Glucose [Mass/Vol] 293 mg/dL High 55-199 [facility] Comment on above: Result Comment: If t his glucose result represents a fasting glucose, interpretation should refer to the following reference range: 55-99 mg/dL Performed By: #### 1 3197871, 9401676, 5328905, 98958066 ####[facility] [address] [address] Potassium [Moles/Vol] 4.0 mmol/L Normal 3.5-5.3 [facility] Comment on above: Performed By: #### 1 5599027, 6908548, 7608188, 99702662 ####[facility] [address] [place] [address] Sodium [Moles/Vol] 137 mmol/L Normal 135-145 [facility] Comment on above: Performed By: #### 1 3592560, 1076117, 1202110, 85833642 ####[facility] [address] [place] [address] Urea nitrogen [Mass/Vol] 47 mg/dL High 5-21 [facility] Comment on above: Performed By: #### 1 3858886, 3607641, 4606367, 15328571 ####[facility] [address] [place] [address] Urea nitrogen/Creatinine [Mass ratio] 4 No Units Low 10-20 [facility] Comment on above: Performed By: #### 1 9772368, 8476349, 3168301, 04666322 ####[facility] [address] [place] [address] Capillary Glucose POCon Glucose [Mass/Vol] 207 mg/dL High 55-99 [facility] Comment on above: Result Comment: Ambrocio vargas RN/ Performed By: #### 2 86022605 ####[facility] [address] [place] [address] Glucose [Mass/Vol] 167 mg/dL High 55- [facility] Comment on above: Result Comment: Ambrocio vargas RN/ Performed By: #### 2 51440492 ####[facility] [address] [place] [address] Glucose [Mass/Vol] 266 mg/dL [facility] Comment on above: Result Comment: Ambrocio vargas RN/ Performed By: #### 2 60482003 ####[facility] [address] [place] [address] Glucose [Mass/Vol] 309 mg/dL [facility] 55- [facility] Comment on above: Result Comment: Danielle joe Meter Performed By: #### 2 [id number] ####[facility] [address] [place] [address] Consent for Procedure/Surger yon 07-16-2022 Consent for Procedure/Surgery [id number]#1.0 0CD:127 Normal [facility] Electrocardiogram - 12 leado n 07-16-2022 Electrocardiogram - 12 lead [id number]#1.0 0CD:127 Normal [facility] Hct & Hgbon 07-16-2022 Hematocrit (Bld) [Volume fraction] 23.9 % Low 37.7-49.0 [facility] Comment on above: Performed By: #### 1 2471569, 9472803, 0705373, 55492815 ####[facility] [address] [place] [address] Hemoglobin (Bld) [Mass/Vol] 8.2 g/dL Low 13.5-17.5 [facility] Comment on above: Performed By: #### 1 9772668, 7659099, 1926079, 56899486 ####[facility] [address] [place] [address] Interdisciplinary Note - Paresh e Manageron 07-16-2022 Interdisciplinary Note - Plate And Weld Inspector CRM to room and patient is down in OR with Vascular Patient is here for an infection as an inpatient. Patient was diagnosed with LUE AVF infection and thrombosis Patient was accepted to [facility] and plan will be to DC there once medically ready [facility] Comment on above: Result Comment: Elec tronically Signed By: Tia White\.asael\Date and Time Signed: 07/16/22 12:44 EDT Main OR PACU I Recordon Main OR PACU I Record [facility] Monitor Recordon 07-16-2022 Monitor Record [id number]#1. 00CD:127 [facility] Monitor Record [id number]#1. 00CD:127 [facility] Monitor Record [id number]#1. 00CD:127 [facility] Monitor Record [id number]#1. 00CD:127 [facility] Progress Note - Pharmacyon 0 07-16-2022 Progress Note - Pharmacy [facility] Progress Note-Nurseon 2022 Progress Note-Nurse [id number]#1. 00CD:127 [facility] Progress Note-Physicianon Progress Note-Physician [facility] Comment on above: Result Comment: Elec tronically Signed By: Gino Feliz Jr, DO\.br\Date and Time Signed: 07/16/22 14:49 EDT Progress Note-Physician Normal [facility] Comment on above: Result Comment: Elec tronically Signed By: Vijaya SANDOVAL\.br\Date and Time Signed: 07/16/22 11:35 EDT\.br\Electronically Co-Signed By: Pedro ARAUZ MD\.br\Date and Time Co-Signed: 07/16/22 12:52 EDT Progress Note-Physician Normal [facility] Comment on above: Result Comment: Elec tronically Signed By: Vane Miller MD\.br\Date and Time Signed: 07/16/22 12:12 EDT Vanco Troughon 07-16-2022 VANCOMYCIN 27 microgram/mL Abnormal 10-20 [facility] Comment on above: Result Comment: Crit ical Result verified by repeat analysis\Critical Result S_VANC_T:27.0 Called to SILVIO ARZOLA AT 3S by CATHY LERNER And Read Back For Confirmation at: 07/16/2022 07:34:50 Performed By: #### 1 6880666, 7934909, 3801216, 28567370 ####[facility] [address] [place] [address] eGFRon 07-16-2022 GFR/1.73 sq M.predicted among non-blacks MDRD (S/P/Bld) [Vol rate/Area] 4 mL/min/1.73 m2 Low >=59 [facility] Comment on above: Order Comment: Order added by Discern Expert. Result Comment: Rotary Surface Grinder jm kidney disease could be indicated at eGFR's of less than 60 mL/min/1.73m2. Kidney failure is indicated at less than 15 mL/min/1.73m2. Performed By: #### 1 9308656, 9123438, 4065671, 79230714 ####[facility] [address] [place] [address] Auto Diffon 07-15-2022 Basophils/100 WBC (Bld) 1.2 % Normal 0.0-2.0 [facility] Comment on above: Order Comment: Order Added by Discern Expert. Performed By: #### 1 7840499, 3539711, 2242944, 7846408 ####[address] [place] [address] Basophils/Leukocytes Auto (Bld) [Pure # fraction] 0.1 E9/L Normal 0.0-0.2 [facility] Comment on above: Order Comment: Order Added by Discern Expert. Performed By: #### 1 9249670, 2396378, 8052273, 6025645 ####[address] [address] Eosinophils/100 WBC (Bld) 3.4 % Normal 0.0-8.0 [facility] Comment on above: Order Comment: Order Added by Discern Expert. Performed By: #### 1 7713277, 7762560, 2569387, 0760276 ####[address] [address] Eosinophils/Leukocyt es Auto (Bld) [Pure # fraction] 0.2 E9/L Normal 0.0-0.5 [facility] Comment on above: Order Comment: Order Added by Discern Expert. Performed By: #### 1 6277953, 5516302, 5458106, 4462310 ####[address] [address] Lymphocytes/100 WBC (Bld) 11.3 % Low 14.0-50.0 [facility] Comment on above: Order Comment: Order Added by Discern Expert. Performed By: #### 1 5393252, 9312470, 9924194, 4696427 ####[address] [address] Lymphocytes/Leukocyt es Auto (Bld) [Pure # fraction] 0.6 E9/L Low 1.0-4.0 [facility] Comment on above: Order Comment: Order Added by Discern Expert. Performed By: #### 1 8831622, 7766272, 6053947, 8816882 ####[address] [address] Monocytes/100 WBC (Bld) 16.4 % High 4.0-14.0 [facility] Comment on above: Order Comment: Order Added by Discern Expert. Performed By: #### 1 5530664, 3625342, 6186071, 2607126 ####[address] [address] Monocytes/Leukocytes Auto (Bld) [Pure # fraction] 0.9 E9/L Normal 0.2-1.0 [facility] Comment on above: Order Comment: Order Added by Discern Expert. Performed By: #### 1 1127857, 2353282, 0866346, 9159530 ####[address] [address] Neutrophils/100 WBC (Bld) 67.7 % Normal 36.0-75.0 [facility] Comment on above: Order Comment: Order Added by Discern Expert. Performed By: #### 1 8134042, 3105748, 7819390, 0677070 ####[address] [address] Neutrophils/Leukocyt es Auto (Bld) [Pure # fraction] 3.7 E9/L Normal 2.0-7.5 [facility] Comment on above: Order Comment: Order Added by Discern Expert. Performed By: #### 1 8811220, 6618049, 5256226, 1017027 ####[address] [address] CBC w/ Auto Diffon 3 Erythrocyte distribution width (RBC) [Ratio] 16.7 % High 10.9-14.2 [facility] Comment on above: Performed By: #### 1 2387375, 3702937, 9520276, 7309126 ####[address] [address] Hematocrit (Bld) [Volume fraction] 24.3 % Low 37.7-49.0 [facility] Comment on above: Performed By: #### 1 0836585, 4498812, 5212315, 4751113 ####[address] [address] Hemoglobin (Bld) [Mass/Vol] 8.0 g/dL Low 13.5-17.5 [facility] Comment on above: Performed By: #### 1 5065647, 9238499, 7450403, 5268299 ####[facility] [address] [place] [address] MCH (RBC) [Entitic mass] 29.7 pg Normal 27.0-34.0 [facility] Comment on above: Performed By: #### 1 3930831, 9089795, 8019035, 4643134 ####[address] [place] [address] MCHC (RBC) [Mass/Vol] 32.9 g/dL Normal 31.4-36.0 [facility] Comment on above: Performed By: #### 1 4559897, 1896899, 6903722, 5460298 ####[address] [address] MCV (RBC) [Entitic vol] 90.1 fL Normal 80.0-100.0 [facility] Comment on above: Performed By: #### 1 8048946, 3987440, 0746148, 6835283 ####[address] [address] Platelet mean volume (Bld) [Entitic vol] 7.9 fL Normal 6.4-10.8 [facility] Comment on above: Performed By: #### 1 2004498, 9574951, 4662338, 7866410 ####[address] [address] Platelets (Bld) [#/Vol] 219.0 E9/L Normal 150.0-500.0 [facility] Comment on above: Performed By: #### 1 8280339, 6013024, 2582161, 6181105 ####[address] [address] RBC (Bld) [#/Vol] 2.7 E12/L Low 4.3-5.9 [facility] Comment on above: Performed By: #### 1 8652987, 8336673, 6034794, 1994102 ####[facility] [address] [place] [address] WBC corrected for nucl RBC Auto (Bld) [#/Vol] 5.5 E9/L Normal 4.0-11.0 [facility] Comment on above: Performed By: #### 1 1155353, 4754612, 5785066, 6535782 ####[facility] [address] [place] [address] CMPon 07-15-2022 Creatinine [Mass/Vol] 10.0 mg/dL Abnormal 0.5-1.3 [facility] Comment on above: Result Comment: Crit ical Result S_CREA:10.00 Called to HIRO VALERIO AT 3S by CATHY LERNER And Read Back For Confirmation at: 07/15/2022 10:15:30\Result S_CREA:10.00 Called to HIRO VALERIO AT 3S by CATHY LERNER And Read Back For Confirmation at: 07/15/2022 10:15:30\ATTEMPTED TO CALL RESULT X2\Critical Result verified by previous result Performed By: #### 1 8356738, 7428299, 6505227, 2054939 ####[facility] [address] [place] [address] Albumin [Mass/Vol] 2.2 g/dL Low 3.3-5.0 [facility] Comment on above: Performed By: #### 1 8566531, 7608947, 2939882, 3663919 ####[facility] [address] [place] [address] Albumin/Globulin (S) [Mass conc ratio] 0.7 Low 1.1-2.2 [facility] Comment on above: Performed By: #### 1 9115161, 0793747, 0511895, 1592325 ####[facility] [address] [place] [address] ALP [Catalytic activity/Vol] 39 Int._Unit/L Normal 21-98 [facility] Comment on above: Performed By: #### 1 2597869, 4009754, 9569753, 4216395 ####[facility] [address] [place] [address] ALT No additional P-5'-P [Catalytic activity/Vol] 17 Int._Unit/L Normal 6-46 [facility] Comment on above: Performed By: #### 1 1548896, 3961914, 3277501, 7387717 ####[facility] [address] [place] [address] Anion gap [Moles/Vol] 15 mmol/L Normal 6-16 [facility] Comment on above: Performed By: #### 1 7519120, 2451321, 5006899, 5642575 ####[facility] [address] [place] [address] AST [Catalytic activity/Vol] 47 Int._Unit/L High 5-43 [facility] Comment on above: Performed By: #### 1 6191951, 7516100, 2642890, 0577832 ####[facility] [address] [place] [address] Bilirubin [Mass/Vol] 0.8 mg/dL Normal 0.0-1.[address] [facility] Comment on above: Performed By: #### 1 5926989, 9754351, 2232283, 7567795 ####[facility] [address] [place] [address] Calcium [Mass/Vol] 8.6 mg/dL Low 8.9-11.1 [facility] Comment on above: Performed By: #### 1 4536285, 1359307, 6840919, 6814792 ####[facility] [address] [place] [address] Chloride [Moles/Vol] 100 mmol/L Low 101-[address] [facility] Comment on above: Performed By: #### 1 0803561, 9667082, 0467764, 2686413 ####[facility] [address] [place] [address] CO2 [Moles/Vol] 24 mmol/L Normal 21-31 [facility] Comment on above: Performed By: #### 1 1549776, 9835098, 4141868, 9461243 ####[facility] [address] [place] [address] Globulin (S) [Mass/Vol] 3.2 g/dL Normal 1.4-4.0 [facility] Comment on above: Performed By: #### 1 3319602, 2194564, 7586569, 3263940 ####[facility] [address] [place] [address] Glucose [Mass/Vol] 202 mg/dL High 55-199 [facility] Comment on above: Result Comment: If t his glucose result represents a fasting glucose, interpretation should refer to the following reference range: 55-99 mg/dL Performed By: #### 1 5109609, 8090918, 1527348, 1390690 ####[address] [place] [address] Potassium [Moles/Vol] 3.7 mmol/L Normal 3.5-5.3 [facility] Comment on above: Performed By: #### 1 3701989, 9099020, 8263289, 8895992 ####[facility] [address] [place] [address] Protein [Mass/Vol] 5.4 g/dL Low 6.0-7.8 [facility] Comment on above: Performed By: #### 1 2348915, 3819636, 4474864, 4074793 ####[facility] [address] [place] [address] Sodium [Moles/Vol] 135 mmol/L Normal 135-145 [facility] Comment on above: Performed By: #### 1 4617080, 1132856, 0261702, 6446741 ####[facility] [address] [place] [address] Urea nitrogen [Mass/Vol] 42 mg/dL High 5-21 [facility] Comment on above: Performed By: #### 1 4664046, 3964881, 4773520, 6919552 ####[facility] [address] [place] [address] Urea nitrogen/Creatinine [Mass ratio] 4 No Units Low 10-20 [facility] Comment on above: Performed By: #### 1 1283088, 3735218, 6821392, 9430274 ####[facility] [address] [place] [address] Capillary Glucose POCon Glucose [Mass/Vol] 323 mg/dL High 55-99 [facility] Comment on above: Result Comment: Ambrocio vargas RN/ Performed By: #### 2 56547023 ####[facility] [address] [place] [address] Glucose [Mass/Vol] 297 mg/dL High - [facility] Comment on above: Performed By: #### 2 79431002 ####[facility] [address] [place] [address] Glucose [Mass/Vol] 244 mg/dL High - [facility] Comment on above: Result Comment: Ambrocio vargas RN/ Performed By: #### 2 55403147 ####[facility] [address] [place] [address] Glucose [Mass/Vol] 317 mg/dL High [facility] Comment on above: Result Comment: Ambrocio vargas RN/ Performed By: #### 2 70869680 ####[facility] [address] [place] [address] Glucose [Mass/Vol] 171 mg/dL High - [facility] Comment on above: Result Comment: Ambrocio vargas RN/ Performed By: #### 2 59101546 ####[facility] [address] [place] [address] Hep Bs Agon 07-15-2022 HBV surface Ag IA Ql Negative Invalid Interpretation Code Negative [facility] Comment on above: Result Comment: Perf ormed at: [facility] [id number] PhD Jany Aparicio Performed By: #### 1 1819103, 6204724, 4269419, 1427687, 7528991, 3903260 ####[facility] [address] [place] [address] Interdisciplinary Note - Paresh e Manageron 07-15-2022 Interdisciplinary Note - Plate And Weld Inspector Pt is aware [facility] has accepted. Pt will see Vascular and ID this week. Ant dc TBD. 3MN was met today. CRM to follow. Normal [facility] Comment on above: Result Comment: Elec tronically Signed By: Sarah Tena.br\Date and Time Signed: 07/15/22 11:25 EDT Monitor Recordon 07-15-2022 Monitor Record [id number]#1. 00CD:127 Normal [facility] Monitor Record [id number]#1. 00CD:127 Normal [facility] Monitor Record [id number]#1. 00CD:127 Normal [facility] Monitor Record [id number]#1. 00CD:127 Normal [facility] eGFRon 07-15-2022 GFR/1.73 sq M.predicted among non-blacks MDRD (S/P/Bld) [Vol rate/Area] 5 mL/min/1.73 m2 Low >=59 [facility] Comment on above: Order Comment: Order added by Discern Expert. Result Comment: Rotary Surface Grinder mj kidney disease could be indicated at eGFR's of less than 60 mL/min/1.73m2. Kidney failure is indicated at less than 15 mL/min/1.73m2. Performed By: #### 1 6697254, 3762058, 1548968, 3640109 ####[facility] [address] [place] [address] Auto Diffon 07-14-2022 Basophils/100 WBC (Bld) 0.7 % Normal 0.0-2.0 [facility] Comment on above: Order Comment: Order Added by Discern Expert. Performed By: #### 1 6658403, 2553344, 7515777, 3848276, 6757511, 8868327 ####[address] [place] [address] Basophils/Leukocytes Auto (Bld) [Pure # fraction] 0.1 E9/L Normal 0.0-0.2 [facility] Comment on above: Order Comment: Order Added by Discern Expert. Performed By: #### 1 7509686, 5339910, 4549876, 8381926, 8115750, 8248628 ####[address] [place] [address] Eosinophils/100 WBC (Bld) 1.1 % Normal 0.0-8.0 [facility] Comment on above: Order Comment: Order Added by Cayla Expert. Performed By: #### 1 1378391, 8268324, 8644159, 3790426, 1200501, 0872865 ####[address] [address] Eosinophils/Leukocyt es Auto (Bld) [Pure # fraction] 0.1 E9/L Normal 0.0-0.5 [facility] Comment on above: Order Comment: Order Added by Cayla Expert. Performed By: #### 1 4227179, 5330504, 3845770, 7434965, 2295232, 6154034 ####[address] [address] Lymphocytes/100 WBC (Bld) 1.7 % Low 14.0-50.0 [facility] Comment on above: Order Comment: Order Added by Discern Expert. Performed By: #### 1 7930904, 1719153, 0742019, 5994723, 9934469, 4353846 ####[address] [address] Lymphocytes/Leukocyt es Auto (Bld) [Pure # fraction] 0.2 E9/L Low 1.0-4.0 [facility] Comment on above: Order Comment: Order Added by Cayla Expert. Performed By: #### 1 9353347, 7064537, 9815201, 1911139, 6592447, 2319648 ####[address] [place] [address] Monocytes/100 WBC (Bld) 6.3 % Normal 4.0-14.0 [facility] Comment on above: Order Comment: Order Added by Discern Expert. Performed By: #### 1 8134196, 2986268, 1878454, 4852138, 7619348, 2464953 ####[address] [place] [address] Monocytes/Leukocytes Auto (Bld) [Pure # fraction] 0.7 E9/L Normal 0.2-1.0 [facility] Comment on above: Order Comment: Order Added by Discern Expert. Performed By: #### 1 4208150, 1170131, 7152660, 5135089, 2303285, 8563335 ####[address] [address] Neutrophils/100 WBC (Bld) 90.2 % High 36.0-75.0 [facility] Comment on above: Order Comment: Order Added by Discern Expert. Performed By: #### 1 9459259, 0351323, 3224078, 9852786, 3444342, 2562986 ####[address] [address] Neutrophils/Leukocyt es Auto (Bld) [Pure # fraction] 9.9 E9/L High 2.0-7.5 [facility] Comment on above: Order Comment: Order Added by Discern Expert. Performed By: #### 1 8533942, 4212042, 1854287, 7333691, 1994194, 0471821 ####[address] [place] [address] BMPon 07-14-2022 Creatinine [Mass/Vol] 7.2 mg/dL High 0.5-1.3 [facility] Comment on above: Performed By: #### 1 9443048, 3623507, 9005505, 9582518, 6048318, 2821350 ####[address] [place] [address] Anion gap [Moles/Vol] 15 mmol/L Normal 6-16 [facility] Comment on above: Performed By: #### 1 7754882, 3882873, 8370814, 8274802, 8281123, 3688759 ####[facility] [address] [place] [address] Calcium [Mass/Vol] 8.2 mg/dL Low 8.9-11.1 [facility] Comment on above: Performed By: #### 1 8692125, 2610405, 0706544, 9324001, 2538184, 4157053 ####[facility] [address] [place] [address] Chloride [Moles/Vol] 98 mmol/L Low 101-[address] [facility] Comment on above: Performed By: #### 1 5181410, 4415958, 5319953, 6003130, 3065450, 7984080 ####[facility] [address] [place] [address] CO2 [Moles/Vol] 24 mmol/L Normal 21-31 [facility] Comment on above: Performed By: #### 1 7924405, 7881502, 0034439, 9099078, 1792548, 8825892 ####[facility] [address] [place] [address] Glucose [Mass/Vol] 190 mg/dL Normal 55-199 [facility] Comment on above: Result Comment: If t his glucose result represents a fasting glucose, interpretation should refer to the following reference range: 55-99 mg/dL Performed By: #### 1 1528735, 0185808, 8244009, 3505655, 2513806, 3740749 ####[facility] [address] [place] [address] Potassium [Moles/Vol] 3.7 mmol/L Normal 3.5-5.3 [facility] Comment on above: Performed By: #### 1 8211496, 0013522, 2555653, 8668985, 2241569, 9592537 ####[facility] [address] [place] [address] Sodium [Moles/Vol] 133 mmol/L Low 135-145 [facility] Comment on above: Performed By: #### 1 8939454, 6422116, 6614625, 9756782, 6741622, 4760462 ####[facility] [address] [place] [address] Urea nitrogen [Mass/Vol] 26 mg/dL High 5-21 [facility] Comment on above: Performed By: #### 1 8323012, 7150574, 4663808, 1140657, 0286113, 6185673 ####[facility] [address] [place] [address] Urea nitrogen/Creatinine [Mass ratio] 4 No Units Low 10-20 [facility] Comment on above: Performed By: #### 1 9217453, 2276830, 8764522, 1155531, 3485765, 2936604 ####[facility] [address] [place] [address] C Woundon 07-14-2022 Wound Culture Normal [facility] Comment on above: Performed By: #### 2 275428 ####[facility] [address] [place] [address] CBC w/ Auto Diffon 3 Erythrocyte distribution width (RBC) [Ratio] 17.1 % High 10.9-14.2 [facility] Comment on above: Performed By: #### 1 1416334, 0571979, 3775270, 7937199, 0485295, 4834868 ####[facility] [address] [place] [address] Hematocrit (Bld) [Volume fraction] 25.5 % Low 37.7-49.0 [facility] Comment on above: Performed By: #### 1 3984280, 2226388, 3144774, 9968352, 6059482, 7494849 ####[facility] [address] [place] [address] Hemoglobin (Bld) [Mass/Vol] 8.5 g/dL Low 13.5-17.5 [facility] Comment on above: Performed By: #### 1 7404484, 3928296, 0195049, 8370721, 9941428, 9820886 ####[facility] [address] MCH (RBC) [Entitic mass] 29.6 pg Normal 27.0-34.0 [facility] Comment on above: Performed By: #### 1 4956328, 4109776, 1207075, 7629874, 0797404, 9756703 ####[address] MCHC (RBC) [Mass/Vol] 33.2 g/dL Normal 31.4-36.0 [facility] Comment on above: Performed By: #### 1 8311141, 7851399, 7878272, 3576060, 3531437, 4719514 ####[address] MCV (RBC) [Entitic vol] 89.4 fL Normal 80.0-100.0 [facility] Comment on above: Performed By: #### 1 4066201, 0155971, 1069327, 6959872, 6048319, 0406386 ####[address] Platelet mean volume (Bld) [Entitic vol] 7.6 fL Normal 6.4-10.8 [facility] Comment on above: Performed By: #### 1 5259518, 1946635, 7487973, 7251751, 1489609, 5765255 ####[address] [place] [address] Platelets (Bld) [#/Vol] 219.0 E9/L Normal 150.0-500.0 [facility] Comment on above: Performed By: #### 1 7512231, 5185548, 1889233, 8479236, 5557188, 2007436 ####[address] [address] RBC (Bld) [#/Vol] 2.8 E12/L Low 4.3-5.9 [facility] Comment on above: Performed By: #### 1 9370171, 8616344, 4164085, 7637851, 5794012, 4933171 ####[facility] [address] [place] [address] WBC corrected for nucl RBC Auto (Bld) [#/Vol] 11.0 E9/L Normal 4.0-11.0 [facility] Comment on above: Performed By: #### 1 0977657, 0315571, 6780417, 8044450, 7572374, 4789577 ####[address] [place] [address] Capillary Glucose POCon Glucose [Mass/Vol] 233 mg/dL High 55-99 [facility] Comment on above: Performed By: #### 2 63225467 ####[address] [place] [address] Glucose [Mass/Vol] 144 mg/dL High 55-99 [facility] Comment on above: Result Comment: Ambrocio ELIAS Performed By: #### 2 90796066 ####[address] [place] [address] Glucose [Mass/Vol] 202 mg/dL High 55-99 [facility] Comment on above: Result Comment: Ambrocio ELIAS Performed By: #### 2 26920604 ####[address] [place] [address] Glucose [Mass/Vol] 180 mg/dL High 55-99 [facility] Comment on above: Result Comment: Ambrocio ELIAS Performed By: #### 2 00052855 ####[facility] [address] [place] [address] Interdisciplinary Note - Paresh e Manageron 07-14-2022 Interdisciplinary Note - Plate And Weld Inspector Normal [facility] Comment on above: Result Comment: Elec tronically Signed By: Sarah Tena\.br\Date and Time Signed: 07/14/22 13:10 EDT Lactic Acidon 07-14-2022 Lactate [Mass/Vol] 1.1 mmol/L Normal 0.5-2.2 [facility] Comment on above: Performed By: #### 1 9893860, 2395237, 1762716, 4970060, 9295115, 4115000 ####[facility] [address] [place] [address] Monitor Recordon 07-14-2022 Monitor Record [id number]#1. 00CD:127 Normal [facility] Monitor Record [id number]#1. 00CD:127 Normal [facility] Monitor Record [id number]#1. 00CD:127 Normal [facility] Progress Note-Physicianon Progress Note-Physician Normal [facility] Comment on above: Result Comment: Elec tronically Signed By: Vijaya SANDOVAL\.br\Date and Time Signed: 07/14/22 13:12 EDT\.br\Electronically Co-Signed By: Fuentes Rodriguez MD\.br\Date and Time Co-Signed: 07/14/22 14:51 EDT eGFRon 07-14-2022 GFR/1.73 sq M.predicted among non-blacks MDRD (S/P/Bld) [Vol rate/Area] 8 mL/min/1.73 m2 Low >=59 [facility] Comment on above: Order Comment: Order added by Discern Expert. Result Comment: Rotary Surface Grinder jm kidney disease could be indicated at eGFR's of less than 60 mL/min/1.73m2. Kidney failure is indicated at less than 15 mL/min/1.73m2. Performed By: #### 1 2000442, 5220595, 5073501, 4735834, 1645118, 2909837 ####[facility] [address] [place] [address] BMPon 07-13-2022 Creatinine [Mass/Vol] 9.3 mg/dL Abnormal 0.5-1.3 [facility] Comment on above: Result Comment: Crit ical Result verified by repeat analysis\Critical Result S_CREA:9.30 Called to MARYURI MCKEON AT 3S by NEDA MACHUCA And Read Back For Confirmation at: 07/13/2022 06:50:42\Result S_CREA:9.30 Called to MARYURI MCKEON AT 3S by NEDA MACHUCA And Read Back For Confirmation at: 07/13/2022 06:50:42 Performed By: #### 1 8239954, 7851437, 9467771 ####[facility] [address] [facility] [place] [address] Anion gap [Moles/Vol] 16 mmol/L Normal 6-16 [facility] Comment on above: Performed By: #### 1 7286322, 6914990, 5857329 ####[facility] [address] [place] [address] Calcium [Mass/Vol] 8.9 mg/dL Normal 8.9-11.1 [facility] Comment on above: Performed By: #### 1 6181361, 3100371, 7142189 ####[facility] [address] [place] [address] Chloride [Moles/Vol] 101 mmol/L Normal 101-[address] [facility] Comment on above: Performed By: #### 1 8037968, 3108318, 5046919 ####[facility] [address] [place] [address] CO2 [Moles/Vol] 23 mmol/L Normal 21-31 [facility] Comment on above: Performed By: #### 1 7943243, 2851578, 0249558 ####[facility] [address] [address] Glucose [Mass/Vol] 266 mg/dL High 55-199 [facility] Comment on above: Result Comment: If t his glucose result represents a fasting glucose, interpretation should refer to the following reference range: 55-99 mg/dL Performed By: #### 1 5575066, 6243997, 0205075 ####[facility] [address] [place] [address] Potassium [Moles/Vol] 3.5 mmol/L Normal 3.5-5.3 [facility] Comment on above: Performed By: #### 1 6713192, 2752331, 5159739 ####[facility] [address] [place] [address] Sodium [Moles/Vol] 136 mmol/L Normal 135-145 [facility] Comment on above: Performed By: #### 1 0605083, 5270301, 4178540 ####[facility] [address] [place] [address] Urea nitrogen [Mass/Vol] 31 mg/dL High 5-21 [facility] Comment on above: Performed By: #### 1 1362428, 9015901, 9687791 ####[address] [address] Urea nitrogen/Creatinine [Mass ratio] 3 No Units Low 10-20 [facility] Comment on above: Performed By: #### 1 2213990, 9121153, 6194541 ####[facility] [address] [place] [address] CRPon 07-13-2022 CRP [Mass/Vol] 8.9 mg/dL High <=1.9 [facility] Comment on above: Performed By: #### 2 550753, 1140369, 5576863 ####[facility] [address] [place] [address] Capillary Glucose POCon 06-0 Glucose [Mass/Vol] 256 mg/dL High 55-99 [facility] Comment on above: Result Comment: Ambrocio vargas RN/ Performed By: #### 2 89291622 ####[facility] [address] [place] [address] Glucose [Mass/Vol] 268 mg/dL High 55-99 [facility] Comment on above: Performed By: #### 2 12453976 ####[facility] [place] [address] Glucose [Mass/Vol] 247 mg/dL High 55-99 [facility] Comment on above: Result Comment: Ambrocio ELIAS Performed By: #### 2 79901109 ####[facility] [address] [place] [address] Glucose [Mass/Vol] 279 mg/dL High 55-99 [facility] Comment on above: Result Comment: Ambrocio ELIAS Performed By: #### 2 31201304 ####[facility] [address] [place] [address] Consultation Noteon 07-14-19 Consultation Note Normal [facility] Comment on above: Result Comment: Elec tronically Signed By: Cristino Walker MD\.br\Date and Time Signed: 07/13/22 14:44 EDT Consultation Note Normal [facility] Comment on above: Result Comment: Elec tronically Signed By: Alfredo Acosta M.D\.br\Date and Time Signed: 07/13/22 09:50 EDT Interdisciplinary Note - Paresh e Manageron 07-13-2022 Interdisciplinary Note - Plate And Weld Inspector Normal [facility] Comment on above: Result Comment: Elec tronically Signed By: Alaina Ragland RN\.br\Date and Time Signed: 07/13/22 11:59 EDT Interdisciplinary Note - Bang singon 07-13-2022 Interdisciplinary Note - Nursing Normal [facility] Lactic Acidon 07-13-2022 Lactate [Mass/Vol] 2.3 mmol/L High 0.5-2.2 [facility] Comment on above: Order Comment: Order added by EKS Rule. (FT_LACTIC_ACID_REFLEX) Adds reflex Lactic Acid 4 hours after initial if result is greater than or equal to 2.0. Performed By: #### 2 751419 ####[facility] [address] [place] [address] Lactate [Mass/Vol] 5.9 mmol/L Abnormal 0.5-2.2 [facility] Comment on above: Result Comment: Crit ical Result verified by repeat analysis\Critical Result S_LAC:5.9Called to STEVE ESTRELLA AT 3S by NEDA MACHUCA And Read Back For Confirmation at: 07/13/2022 12:52:22 Performed By: #### 2 118688, 3599071, 4775811 ####[facility] [address] [place] [address] Monitor Recordon 07-13-2022 Monitor Record [id number]#1. 00CD:127 Normal [facility] Monitor Record [id number]#1. 00CD:127 Normal [facility] Monitor Record [id number]#1. 00CD:127 Normal [facility] Progress Note - Pharmacyon 0 07-13-2022 Progress Note - Pharmacy Normal [facility] Progress Note-Nurseon 2022 Progress Note-Nurse Tx tolerated well, hypotension at beginning of Tx, no other significant issues. 0L removed Pre wt 94 Post wt 95 Normal [facility] Progress Note-Physicianon Progress Note-Physician Normal [facility] Comment on above: Result Comment: Elec tronically Signed By: Nathalie HAAS\.br\Date and Time Signed: 07/13/22 13:50 EDT\.br\Electronically Co-Signed By: Nathalie HAAS\.br\Date and Time Co-Signed: 07/13/22 13:56 EDT\.br\Electronically Co-Signed By: Michael FISH, Fuentes Lemons\.br\Date and Time Co-Signed: 07/13/22 15:20 EDT US Extremity Non-Vascular Li mited Lefton 07-13-2022 US Extremity Non-Vascular Limited Left Normal [facility] Vanco Troughon 07-13-2022 VANCOMYCIN 50 microgram/mL Abnormal 10-20 [facility] Comment on above: Result Comment: Crit ical Result verified by repeat analysis\Critical Result S_VANC_T:50.0 Called to MARYURI MCKEON AT 3S by NEDA MACHUCA And Read Back For Confirmation at: 07/13/2022 06:49:48 Performed By: #### 1 6781589, 8441563, 9133430 ####[facility] [address] [place] [address] WBCon 07-13-2022 WBC corrected for nucl RBC Auto (Bld) [#/Vol] 23.8 E9/L High 4.0-11.0 [facility] Comment on above: Performed By: #### 2 663889, 9017548, 8204628 ####[facility] [address] [place] [address] XR Chest 2 Viewson 3 XR Chest 2 Views Normal [facility] eGFRon 07-13-2022 GFR/1.73 sq M.predicted among non-blacks MDRD (S/P/Bld) [Vol rate/Area] 6 mL/min/1.73 m2 Low >=59 [facility] Comment on above: Order Comment: Order added by Discern Expert. Result Comment: Rotary Surface Grinder jm kidney disease could be indicated at eGFR's of less than 60 mL/min/1.73m2. Kidney failure is indicated at less than 15 mL/min/1.73m2. Performed By: #### 1 2197044, 6502228, 4805579 ####[facility] [address] [place] [address] Auto Diffon 07-12-2022 Basophils/100 WBC (Bld) 0.8 % Normal 0.0-2.0 [facility] Comment on above: Order Comment: Order Added by Discern Expert. Performed By: #### 2 084928, 7405843, 4043629, 93302344 ####[facility] [address] [place] [address] Basophils/Leukocytes Auto (Bld) [Pure # fraction] 0.1 E9/L Normal 0.0-0.2 [facility] Comment on above: Order Comment: Order Added by Discern Expert. Performed By: #### 2 669173, 9187614, 8117171, 00792069 ####[address] [address] Eosinophils/100 WBC (Bld) 1.5 % Normal 0.0-8.0 [facility] Comment on above: Order Comment: Order Added by Discern Expert. Performed By: #### 2 508473, 7956157, 0235090, 30488366 ####[address] [address] Eosinophils/Leukocyt es Auto (Bld) [Pure # fraction] 0.1 E9/L Normal 0.0-0.5 [facility] Comment on above: Order Comment: Order Added by Discern Expert. Performed By: #### 2 843386, 6548092, 9084790, 59589209 ####[address] [address] Lymphocytes/100 WBC (Bld) 11.0 % Low 14.0-50.0 [facility] Comment on above: Order Comment: Order Added by Discern Expert. Performed By: #### 2 696040, 2864306, 5640659, 22381177 ####[address] [address] Lymphocytes/Leukocyt es Auto (Bld) [Pure # fraction] 0.9 E9/L Low 1.0-4.0 [facility] Comment on above: Order Comment: Order Added by Discern Expert. Performed By: #### 2 996662, 3562577, 8491251, 07051386 ####[address] [address] Monocytes/100 WBC (Bld) 13.7 % Normal 4.0-14.0 [facility] Comment on above: Order Comment: Order Added by Discern Expert. Performed By: #### 2 298737, 1294841, 4082503, 37282067 ####[address] [address] Monocytes/Leukocytes Auto (Bld) [Pure # fraction] 1.1 E9/L High 0.2-1.0 [facility] Comment on above: Order Comment: Order Added by Discern Expert. Performed By: #### 2 731302, 0721280, 2812748, 67152350 ####[address] [place] [address] Neutrophils/100 WBC (Bld) 73.0 % Normal 36.0-75.0 [facility] Comment on above: Order Comment: Order Added by Discern Expert. Performed By: #### 2 000079, 1269418, 1280468, 81121081 ####[address] [place] [address] Neutrophils/Leukocyt es Auto (Bld) [Pure # fraction] 5.9 E9/L Normal 2.0-7.5 [facility] Comment on above: Order Comment: Order Added by Cayla Expert. Performed By: #### 2 608101, 8146148, 5989287, 08645787 ####[address] [place] [address] BMPon 07-12-2022 Creatinine [Mass/Vol] 7.6 mg/dL Abnormal 0.5-1.3 [facility] Comment on above: Result Comment: Crit ical Result verified by previous result\Critical Result verified by repeat analysis\Critical Result S_CREA:7.60 Called to JOHANNE BUNCH AT 3N by NOEL ORNELAS And Read Back For Confirmation at: 07/12/2022 16:57:45 Performed By: #### 2 064474, 5238213, 2175700, 65376540 ####[address] [place] [address] Urea nitrogen [Mass/Vol] 26 mg/dL High 5-21 [facility] Comment on above: Performed By: #### 2 816250, 0392739, 6919946, 98936908 ####[address] [place] [address] Urea nitrogen/Creatinine [Mass ratio] 3 No Units Low 10-20 [facility] Comment on above: Performed By: #### 2 788832, 6511331, 9091371, 94443967 ####[address] [place] [address] Anion gap [Moles/Vol] 15 mmol/L Normal 6-16 [facility] Comment on above: Performed By: #### 2 609462, 8636699, 6574088, 08073146 ####[facility] [address] [place] [address] Calcium [Mass/Vol] 9.2 mg/dL Normal 8.9-11.1 [facility] Comment on above: Performed By: #### 2 837387, 2829902, 0031786, 59350040 ####[facility] [address] [place] [address] Chloride [Moles/Vol] 98 mmol/L Low 101-[address] [facility] Comment on above: Performed By: #### 2 239589, 9596913, 5084625, 87481359 ####[facility] [address] [facility] [place] [address] CO2 [Moles/Vol] 25 mmol/L Normal 21-31 [facility] Comment on above: Performed By: #### 2 411166, 2329065, 4373390, 46885800 ####[facility] [address] [place] [address] Glucose [Mass/Vol] 203 mg/dL High 55-199 [facility] Comment on above: Result Comment: If t his glucose result represents a fasting glucose, interpretation should refer to the following reference range: 55-99 mg/dL Performed By: #### 2 429060, 6690947, 2785411, 18262198 ####[facility] [address] [place] [address] Potassium [Moles/Vol] 4.2 mmol/L Normal 3.5-5.3 [facility] Comment on above: Performed By: #### 2 736697, 2891291, 9849354, 63731811 ####[facility] [facility] [address] [place] [address] Sodium [Moles/Vol] 134 mmol/L Low 135-145 [facility] Comment on above: Performed By: #### 2 205856, 3280207, 1850328, 44448639 ####[facility] [address] [place] [address] CBC w/ Auto Diffon 3 Erythrocyte distribution width (RBC) [Ratio] 16.8 % High 10.9-14.2 [facility] Comment on above: Performed By: #### 2 564638, 1401717, 6038163, 27031976 ####[facility] [address] [place] [address] Hematocrit (Bld) [Volume fraction] 28.7 % Low 37.7-49.0 [facility] Comment on above: Performed By: #### 2 084437, 0466600, 4376259, 86381009 ####[address] [place] [address] Hemoglobin (Bld) [Mass/Vol] 9.5 g/dL Low 13.5-17.5 [facility] Comment on above: Performed By: #### 2 846881, 4078371, 9895004, 43421041 ####[address] [place] [address] MCH (RBC) [Entitic mass] 29.6 pg Normal 27.0-34.0 [facility] Comment on above: Performed By: #### 2 846416, 7323262, 1081697, 41397550 ####[address] [place] [address] MCHC (RBC) [Mass/Vol] 33.1 g/dL Normal 31.4-36.0 [facility] Comment on above: Performed By: #### 2 551215, 5483961, 1130507, 57442326 ####[address] [place] [address] MCV (RBC) [Entitic vol] 89.5 fL Normal 80.0-100.0 [facility] Comment on above: Performed By: #### 2 908082, 4207209, 1222201, 68245235 ####[address] [place] [address] Platelet mean volume (Bld) [Entitic vol] 7.4 fL Normal 6.4-10.8 [facility] Comment on above: Performed By: #### 2 389651, 0141558, 2511501, 94047393 ####[address] [address] Platelets (Bld) [#/Vol] 284.0 E9/L Normal 150.0-500.0 [facility] Comment on above: Performed By: #### 2 111396, 4781479, 9002565, 53563790 ####[address] [address] RBC (Bld) [#/Vol] 3.2 E12/L Low 4.3-5.9 [facility] Comment on above: Performed By: #### 2 674266, 0990165, 0454255, 19691886 ####[address] [address] WBC corrected for nucl RBC Auto (Bld) [#/Vol] 8.1 E9/L Normal 4.0-11.0 [facility] Comment on above: Performed By: #### 2 074580, 8795101, 7190532, 98636313 ####[address] [address] Capillary Glucose POCon 06-0 Glucose [Mass/Vol] 287 mg/dL High 55-99 [facility] Comment on above: Result Comment: Ambrocio ELIAS Performed By: #### 2 [id number] ####[address] [address] Glucose [Mass/Vol] 191 mg/dL High 55-99 [facility] Comment on above: Result Comment: Ambrocio ELIAS Performed By: #### 2 81252491 ####[address] [address] Consent for Treatmenton 06-0 Consent for Treatment [id number]#1.0 0CD:127 Normal [facility] Consent for Treatment [id number]#1.0 0CD:127 Normal [facility] Heart and Vascular Office/Cl inic Noteon 07-12-2022 Heart and Vascular Office/Clinic Note Normal [facility] Comment on above: Result Comment: Elec tronically Signed By: Dorian FISH, Evelyn Lopez\.br\Date and Time Signed: 07/12/22 13:58 EDT Progress Note - Pharmacyon 0 07-12-2022 Progress Note - Pharmacy Normal [facility] eGFRon 07-12-2022 GFR/1.73 sq M.predicted among non-blacks MDRD (S/P/Bld) [Vol rate/Area] 7 mL/min/1.73 m2 Low >=59 [facility] Comment on above: Order Comment: Order added by Discern Expert. Result Comment: Rotary Surface Grinder jm kidney disease could be indicated at eGFR's of less than 60 mL/min/1.73m2. Kidney failure is indicated at less than 15 mL/min/1.73m2. Performed By: #### 2 109710, 8381851, 9240763, 02487426 ####[facility] [address] [place] [address] ED Note-Physicianon 07-12-19 ED Note-Physician Normal [facility] Comment on above: Result Comment: Elec tronically Signed By: Zack Domingo PA-C\.br\Date and Time Signed: 07/09/22 20:28 EDT\.br\Electronically Co-Signed By: Adam Weinberg M.D.\.br\Date and Time Co-Signed: 07/11/22 07:12 EDT US AV Fistula/Lisa 2022 US AV Fistula/Graft Normal [facility] US UE Venous Duplex Lefton 0 07-10-2022 US UE Venous Duplex Left Normal [facility] Consent for Treatmenton 06-12 Consent for Treatment [id number]#1.0 0CD:127 Normal [facility] Discharge Instructionson Discharge Instructions [id number]#1. 00CD:127 Normal [facility] ED Clinical Summaryon 2022 ED Clinical Summary Normal [facility] ED Patient Education Noteon 07-09-2022 ED Patient Education Note Normal [facility] ED Patient Summaryon 023 ED Patient Summary [facility] Cardiovascular Reporton 06-12 Cardiovascular Report [id number]#1. 00CD:127 [facility] Consent for Procedure/Surger yon 07-04-2022 Consent for Procedure/Surgery [id number]#1. 00CD:127 Normal [facility] Consultation Noteon 07-05-19 Consultation Note Normal [facility] Comment on above: Result Comment: Elec tronically Signed By: Brian SHIN, Sarah Ugalde\.br\Date and Time Signed: 07/03/22 21:20 EDT\.br\Electronically Co-Signed By: Jatin Fournier MD\.br\Date and Time Co-Signed: 07/04/22 12:37 EDT Discharge Instructionson Discharge Instructions [id number]#1. 00CD:127 Normal [facility] Progress Note-Nurseon 2022 Progress Note-Nurse [id number]#1. 00CD:127 Normal [facility] Auto Diffon 07-03-2022 Basophils/100 WBC (Bld) 0.3 % Normal 0.0-2.0 [facility] Comment on above: Order Comment: Order Added by Discern Expert. Performed By: #### 1 9141666, 9402725, 5146893, 0413240 ####[address] [place] [address] Basophils/Leukocytes Auto (Bld) [Pure # fraction] 0.0 E9/L Normal 0.0-0.2 [facility] Comment on above: Order Comment: Order Added by Discern Expert. Performed By: #### 1 4029822, 3842908, 4688850, 6539836 ####[address] [place] [address] Eosinophils/100 WBC (Bld) 1.0 % Normal 0.0-8.0 [facility] Comment on above: Order Comment: Order Added by Discern Expert. Performed By: #### 1 5483024, 9531100, 6919973, 0198769 ####[address] [address] Eosinophils/Leukocyt es Auto (Bld) [Pure # fraction] 0.1 E9/L Normal 0.0-0.5 [facility] Comment on above: Order Comment: Order Added by Discern Expert. Performed By: #### 1 4297743, 4652997, 9735874, 9219834 ####[address] [address] Lymphocytes/100 WBC (Bld) 9.1 % Low 14.0-50.0 [facility] Comment on above: Order Comment: Order Added by Discern Expert. Performed By: #### 1 2251277, 5548747, 7453592, 0876782 ####[address] [address] Lymphocytes/Leukocyt es Auto (Bld) [Pure # fraction] 0.6 E9/L Low 1.0-4.0 [facility] Comment on above: Order Comment: Order Added by Discern Expert. Performed By: #### 1 4530203, 3249293, 5472199, 1534031 ####[address] [address] Monocytes/100 WBC (Bld) 16.7 % High 4.0-14.0 [facility] Comment on above: Order Comment: Order Added by Discern Expert. Performed By: #### 1 7533007, 4343959, 9663940, 7847289 ####[address] [place] [address] Monocytes/Leukocytes Auto (Bld) [Pure # fraction] 1.2 E9/L High 0.2-1.0 [facility] Comment on above: Order Comment: Order Added by Discern Expert. Performed By: #### 1 9175257, 5563734, 2984020, 2364552 ####[address] [place] [address] Neutrophils/100 WBC (Bld) 72.9 % Normal 36.0-75.0 [facility] Comment on above: Order Comment: Order Added by Discern Expert. Performed By: #### 1 2913686, 6175557, 1376186, 4049170 ####[address] [place] [address] Neutrophils/Leukocyt es Auto (Bld) [Pure # fraction] 5.2 E9/L Normal 2.0-7.5 [facility] Comment on above: Order Comment: Order Added by Discern Expert. Performed By: #### 1 5610354, 7321900, 3676130, 6710565 ####[address] [place] [address] BMPon 07-03-2022 Anion gap [Moles/Vol] 19 mmol/L High 6-16 [facility] Comment on above: Performed By: #### 1 6274586, 0447741, 7961841, 9444366 ####[facility] [address] [place] [address] Calcium [Mass/Vol] 8.3 mg/dL Low 8.9-11.1 [facility] Comment on above: Performed By: #### 1 2627502, 2408973, 6071957, 4495471 ####[facility] [address] [place] [address] Chloride [Moles/Vol] 98 mmol/L Low 101-111 [facility] Comment on above: Performed By: #### 1 9400298, 8688112, 0841292, 2970249 ####[facility] [address] [place] [address] CO2 [Moles/Vol] 23 mmol/L Normal 21-31 [facility] Comment on above: Performed By: #### 1 5376623, 7243160, 2951040, 2307504 ####[facility] [address] [place] [address] Creatinine [Mass/Vol] 17.8 mg/dL Abnormal 0.5-1.3 [facility] Comment on above: Result Comment: Crit ical Result S_CREA:17.80 Called to BRADY SILVERMAN AT [facility] by CATHY LERNER And Read Back For Confirmation at: 07/03/2022 07:23:33\Critical Result verified by previous result Performed By: #### 1 9244512, 6562998, 5717206, 6834688 ####[facility] [address] [place] [address] Glucose [Mass/Vol] 226 mg/dL High 55-199 [facility] Comment on above: Result Comment: If t his glucose result represents a fasting glucose, interpretation should refer to the following reference range: 55-99 mg/dL Performed By: #### 1 7130469, 3429231, 7311051, 4970497 ####[facility] [address] [place] [address] Potassium [Moles/Vol] 4.8 mmol/L Normal 3.5-5.3 [facility] Comment on above: Performed By: #### 1 5040360, 8604917, 4335355, 5990811 ####[facility] [address] [place] [address] Sodium [Moles/Vol] 135 mmol/L Normal 135-145 [facility] Comment on above: Performed By: #### 1 9236019, 3721993, 6192620, 7839461 ####[facility] [address] [place] [address] Urea nitrogen [Mass/Vol] 88 mg/dL Abnormal 5-21 [facility] Comment on above: Result Comment: Crit ical Result S_BUN:88 Called to BRADY SILVERMAN AT [facility] by CATHY LERNER And Read Back For Confirmation at: 07/03/2022 07:23:33\Critical Result verified by previous result Performed By: #### 1 4103473, 8242565, 0561964, 7060912 ####[facility] [address] [place] [address] Urea nitrogen/Creatinine [Mass ratio] 5 No Units Low 10-20 [facility] Comment on above: Performed By: #### 1 9554213, 1188058, 3239367, 4619235 ####[facility] [address] [place] [address] CBC w/ Auto Diffon 3 Erythrocyte distribution width (RBC) [Ratio] 17.0 % High 10.9-14.2 [facility] Comment on above: Performed By: #### 1 7974277, 5671388, 0233268, 0219400 ####[facility] [address] [place] [address] Hematocrit (Bld) [Volume fraction] 26.8 % Low 37.7-49.0 [facility] Comment on above: Performed By: #### 1 4524041, 5160832, 1969388, 1597138 ####[facility] [address] [place] [address] Hemoglobin (Bld) [Mass/Vol] 9.2 g/dL Low 13.5-17.5 [facility] Comment on above: Performed By: #### 1 9027526, 8358014, 8252320, 8740612 ####[facility] [address] [place] [address] MCH (RBC) [Entitic mass] 30.4 pg Normal 27.0-34.0 [facility] Comment on above: Performed By: #### 1 8478779, 6897890, 0073817, 1220352 ####[facility] [address] [place] [address] MCHC (RBC) [Mass/Vol] 34.3 g/dL Normal 31.4-36.0 [facility] Comment on above: Performed By: #### 1 8530277, 7715377, 8439570, 7535787 ####[facility] [address] [place] [address] MCV (RBC) [Entitic vol] 88.5 fL Normal 80.0-100.0 [facility] Comment on above: Performed By: #### 1 6188241, 3487354, 5164893, 2688836 ####[address] [place] [address] Platelet mean volume (Bld) [Entitic vol] 8.4 fL Normal 6.4-10.8 [facility] Comment on above: Performed By: #### 1 4060644, 6930004, 4847871, 0417855 ####[address] [address] Platelets (Bld) [#/Vol] 155.0 E9/L Normal 150.0-500.0 [facility] Comment on above: Performed By: #### 1 5050077, 2445919, 0255238, 9499679 ####[address] [address] RBC (Bld) [#/Vol] 3.0 E12/L Low 4.3-5.9 [facility] Comment on above: Performed By: #### 1 8362086, 6957254, 8158114, 2433309 ####[address] [address] WBC corrected for nucl RBC Auto (Bld) [#/Vol] 7.1 E9/L Normal 4.0-11.0 [facility] Comment on above: Result Comment: Slid e reviewed by BC. Performed By: #### 1 1581487, 4693958, 5089273, 3279910 ####[address] [place] [address] Capillary Glucose POC 05- Glucose [Mass/Vol] 146 mg/dL High 55-99 [facility] Comment on above: Result Comment: Ambrocio vargas RN/ Performed By: #### 2 95698319 ####[facility] [address] [place] [address] Glucose [Mass/Vol] 158 mg/dL High 55-99 [facility] Comment on above: Result Comment: Ambrocio ELIAS Performed By: #### 2 07980934 ####[facility] [address] [place] [address] Cardiovascular Reporton 06-12 Cardiovascular Report [id number]#2. 00CD:127 [facility] Discharge Note-Nursingon Discharge Note-Nursing [facility] Inpatient Clinical Summaryon 07-03-2022 Inpatient Clinical Summary [facility] Inpatient Patient Summaryon 07-03-2022 Inpatient Patient Summary [facility] Interdisciplinary Note - Paresh e Manageron 07-03-2022 Interdisciplinary Note - Plate And Weld Inspector Pt is asleep in bed, receiving dialysis at this time. Pt is from home with , previously rounded with Dr. Arauz and plan to DC home after dialysis. contact information provided and white board updated. CRM following. [facility] Comment on above: Result Comment: Elec tronically Signed By: Obie TORREZ, Alaina\.asael\Date and Time Signed: 07/03/22 10:14 EDT Monitor Recordon 07-03-2022 Monitor Record [id number]#1. 00CD:127 [facility] Monitor Record [id number]#1. 00CD:127 [facility] Monitor Record [id number]#1. 00CD:127 [facility] Monitor Record [id number]#1. 00CD:127 [facility] Patient Education - Texton 0 07-03-2022 Patient Education - Text Normal [facility] Progress Note-Physicianon Progress Note-Physician Normal [facility] Comment on above: Result Comment: Elec tronically Signed By: DAVONTE FISH, Pedro\.br\Date and Time Signed: 07/03/22 08:34 EDT eGFRon 07-03-2022 GFR/1.73 sq M.predicted among non-blacks MDRD (S/P/Bld) [Vol rate/Area] 3 mL/min/1.73 m2 Low >=59 [facility] Comment on above: Order Comment: Order added by Discern Expert. Result Comment: Rotary Surface Grinder jm kidney disease could be indicated at eGFR's of less than 60 mL/min/1.73m2. Kidney failure is indicated at less than 15 mL/min/1.73m2. Performed By: #### 1 2848313, 1856126, 1484889, 3707492 ####[facility] [address] [place] [address] BMPon 07-02-2022 Creatinine [Mass/Vol] 16.8 mg/dL Abnormal 0.5-1.3 [facility] Comment on above: Result Comment: Crit ical Result S_CREA:16.80 Called to LESTER MELTON AT [facility] by CATHY LERNER And Read Back For Confirmation at: 07/02/2022 13:30:56\Critical Result verified by repeat analysis Performed By: #### 1 6049046, 4067240 ####[facility] [address] [place] [address] Urea nitrogen [Mass/Vol] 78 mg/dL High 5-21 [facility] Comment on above: Performed By: #### 1 8531858, 9794278 ####[facility] [address] [place] [address] Urea nitrogen/Creatinine [Mass ratio] 5 No Units Low 10-20 [facility] Comment on above: Performed By: #### 1 3699043, 5641420 ####[facility] [address] [place] [address] Anion gap [Moles/Vol] 22 mmol/L High 6-16 [facility] Comment on above: Performed By: #### 1 9667305, 9903801 ####[facility] [address] [address] Calcium [Mass/Vol] 8.9 mg/dL Normal 8.9-11.1 [facility] Comment on above: Performed By: #### 1 8827021, 7769750 ####[facility] [address] [place] [address] Chloride [Moles/Vol] 96 mmol/L Low 101-[address] [facility] Comment on above: Performed By: #### 1 4328880, 0132985 ####[facility] [address] [address] CO2 [Moles/Vol] 21 mmol/L Normal 21-31 [facility] Comment on above: Performed By: #### 1 2644531, 8465342 ####[facility] [address] [address] Glucose [Mass/Vol] 229 mg/dL High 55-199 [facility] Comment on above: Result Comment: If t his glucose result represents a fasting glucose, interpretation should refer to the following reference range: 55-99 mg/dL Performed By: #### 1 9233487, 1541367 ####[facility] [address] [place] [address] Potassium [Moles/Vol] 4.9 mmol/L Normal 3.5-5.3 [facility] Comment on above: Performed By: #### 1 1078829, 1224189 ####[facility] [address] [address] Sodium [Moles/Vol] 134 mmol/L Low 135-145 [facility] Comment on above: Performed By: #### 1 2801957, 7586192 ####[facility] [address] [place] [address] Capillary Glucose POCon 052 Glucose [Mass/Vol] 253 mg/dL High 55-99 [facility] Comment on above: Performed By: #### 2 31987278 ####[facility] [address] [place] [address] Consent for Treatmenton 06-12 Consent for Treatment [id number]#1.0 0CD:127 Normal [facility] Interdisciplinary Note - Bang singon 07-02-2022 Interdisciplinary Note - Nursing Normal [facility] Monitor Recordon 07-02-2022 Monitor Record [id number]#1. 00CD:127 Normal [facility] Operative Reporton Operative Report Normal [facility] Comment on above: Result Comment: Elec tronically Signed By: Dorian FISH, Evelyn Lopez\.br\Date and Time Signed: 07/02/22 15:32 EDT eGFRon 07-02-2022 GFR/1.73 sq M.predicted among non-blacks MDRD (S/P/Bld) [Vol rate/Area] 3 mL/min/1.73 m2 Low >=59 [facility] Comment on above: Order Comment: Order added by Discern Expert. Result Comment: Rotary Surface Grinder jm kidney disease could be indicated at eGFR's of less than 60 mL/min/1.73m2. Kidney failure is indicated at less than 15 mL/min/1.73m2. Performed By: #### 1 6037408, 8651449 ####[facility] [address] [place] [address] Discharge Instructionson Discharge Instructions [id number]#1.0 0CD:127 Normal [facility] BMPon 06-29-2022 Creatinine [Mass/Vol] 10.3 mg/dL Abnormal 0.5-1.3 [facility] Comment on above: Result Comment: Crit ical Result verified by repeat analysis\Critical Result S_CREA:10.30 Called to DOMINGO LANGE AT by NOEL ORNELAS And Read Back For Confirmation at: 06/29/2022 17:06:57 Performed By: #### 2 239752, [id number] ####[facility] [address] [place] [address] Urea nitrogen [Mass/Vol] 41 mg/dL High 5-21 [facility] Comment on above: Performed By: #### 2 772966, 60065382 ####[facility] [address] [place] [address] Urea nitrogen/Creatinine [Mass ratio] 4 No Units Low 10-20 [facility] Comment on above: Performed By: #### 2 301039, 02479778 ####[facility] [address] [place] [address] Anion gap [Moles/Vol] 16 mmol/L Normal 6-16 [facility] Comment on above: Performed By: #### 2 347277, 91210016 ####[facility] [address] [address] Calcium [Mass/Vol] 9.6 mg/dL Normal 8.9-11.1 [facility] Comment on above: Performed By: #### 2 532505, 33245473 ####[facility] [address] [place] [address] Chloride [Moles/Vol] 98 mmol/L Low 101-[address] [facility] Comment on above: Performed By: #### 2 485483, 04346351 ####[facility] [address] [address] CO2 [Moles/Vol] 25 mmol/L Normal 21-31 [facility] Comment on above: Performed By: #### 2 020220, 31481444 ####[facility] [address] [place] [address] Glucose [Mass/Vol] 159 mg/dL Normal 55-199 [facility] Comment on above: Result Comment: If t his glucose result represents a fasting glucose, interpretation should refer to the following reference range: 55-99 mg/dL Performed By: #### 2 661490, 77866853 ####[facility] [address] [place] [address] Potassium [Moles/Vol] 4.3 mmol/L Normal 3.5-5.3 [facility] Comment on above: Performed By: #### 2 586337, 55089083 ####[facility] [address] [place] [address] Sodium [Moles/Vol] 135 mmol/L Normal 135-145 [facility] Comment on above: Performed By: #### 2 [id number], [id number] ####[facility] [address] [place] [address] Consent for Treatmenton 06-11 Consent for Treatment [id number] 0CD:127 Normal [facility] ED Clinical Summaryon 2022 ED Clinical Summary Normal [facility] ED Note-Physicianon 06-30-19 ED Note-Physician Normal [facility] Comment on above: Result Comment: Elec tronically Signed By: Reji Azar DO\.br\Date and Time Signed: 06/29/22 19:10 EDT ED Patient Education Noteon 06-29-2022 ED Patient Education Note Normal [facility] ED Patient Summaryon 023 ED Patient Summary Normal [facility] US AV Fistula/[place] 2022 US AV Fistula/Graft Normal [facility] eGFRon 06-29-2022 GFR/1.73 sq M.predicted among non-blacks MDRD (S/P/Bld) [Vol rate/Area] 5 mL/min/1.73 m2 Low >=59 [facility] Comment on above: Order Comment: Order added by Discern Expert. Result Comment: Rotary Surface Grinder jm kidney disease could be indicated at eGFR's of less than 60 mL/min/1.73m2. Kidney failure is indicated at less than 15 mL/min/1.73m2. 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 Performed By: #### C VDAGS #### [facility] [address] [place] [address] Dr. Radha Edward SARS-CoV-2 (COVID-19) RNA IRENE+probe Ql (Unsp spec) Positive Abnormal NEGATIVE [facility] Comment on above: Performed By: #### C VDAGS #### [facility] [address] [address] [address] Radha Edward Coding Summary.on 03-21-2022 Coding Summary. Normal [facility] Coding Summary. Normal [facility] Operative Reporton Operative Report Normal [facility] Comment on above: Result Comment: Elec tronically Signed By: Dorian FISH, Evelyn Lopez\.br\Date and Time Signed: 03/19/22 11:58 EST Coding Summary.on 03-16-2022 Coding Summary. Normal [facility] Consent for Procedure/Surger yon 03-16-2022 Consent for Procedure/Surgery [id number]#1. 00CD:127 Normal [facility] Discharge Instructionson Discharge Instructions [id number]#1. 00CD:127 Normal [facility] Auto Diffon 03-15-2022 Basophils/100 WBC (Bld) 1.2 % Normal 0.0-2.0 [facility] Comment on above: Order Comment: Order Added by Discern Expert. Performed By: #### 2 850491, 2166530, 3177080, [id number] ####[address] [address] Basophils/Leukocytes Auto (Bld) [Pure # fraction] 0.1 E9/L Normal 0.0-0.2 [facility] Comment on above: Order Comment: Order Added by Discern Expert. Performed By: #### 2 783744, 3432404, 7391101, 03710171 ####[address] [address] Eosinophils/100 WBC (Bld) 2.9 % Normal 0.0-8.0 [facility] Comment on above: Order Comment: Order Added by Discern Expert. Performed By: #### 2 887382, 8368798, 1162767, [id number] ####[address] [address] Eosinophils/Leukocyt es Auto (Bld) [Pure # fraction] 0.2 E9/L Normal 0.0-0.5 [facility] Comment on above: Order Comment: Order Added by Discern Expert. Performed By: #### 2 422212, 8239919, 4061363, [id number] ####[address] [place] [address] Lymphocytes/100 WBC (Bld) 16.1 % Normal 14.0-50.0 [facility] Comment on above: Order Comment: Order Added by Discern Expert. Performed By: #### 2 330636, 7501842, 2168124, [id number] ####[facility] [address] [place] [address] Lymphocytes/Leukocyt es Auto (Bld) [Pure # fraction] 0.9 E9/L Low 1.0-4.0 [facility] Comment on above: Order Comment: Order Added by Discern Expert. Performed By: #### 2 102951, 6845036, 3270629, 84187988 ####[address] [address] Monocytes/100 WBC (Bld) 15.1 % High 4.0-14.0 [facility] Comment on above: Order Comment: Order Added by Discern Expert. Performed By: #### 2 521410, 0940045, 7468835, 96239630 ####[address] [address] Monocytes/Leukocytes Auto (Bld) [Pure # fraction] 0.8 E9/L Normal 0.2-1.0 [facility] Comment on above: Order Comment: Order Added by Discern Expert. Performed By: #### 2 150202, 4763958, 9074446, 51264833 ####[address] [address] Neutrophils/100 WBC (Bld) 64.7 % Normal 36.0-75.0 [facility] Comment on above: Order Comment: Order Added by Discern Expert. Performed By: #### 2 936154, 1621646, 9064566, 19228099 ####[address] [address] Neutrophils/Leukocyt es Auto (Bld) [Pure # fraction] 3.5 E9/L Normal 2.0-7.5 [facility] Comment on above: Order Comment: Order Added by Discern Expert. Performed By: #### 2 096102, 2048710, 0645434, 45323928 ####[address] [place] [address] BMPon 03-15-2022 Anion gap [Moles/Vol] 16 mmol/L Normal 6-16 [facility] Comment on above: Performed By: #### 2 024924, 8619286, 1178758, 58019230 ####[facility] [address] [place] [address] Calcium [Mass/Vol] 9.3 mg/dL Normal 8.9-11.1 [facility] Comment on above: Performed By: #### 2 683481, 3222284, 6848199, 36428990 ####[facility] [address] [address] Chloride [Moles/Vol] 93 mmol/L Low 101-111 [facility] Comment on above: Performed By: #### 2 553223, 2090073, 7448832, 42991970 ####[facility] [address] [address] CO2 [Moles/Vol] 28 mmol/L Normal 21-31 [facility] Comment on above: Performed By: #### 2 301086, 3058162, 9365075, 77281811 ####[facility] [address] [place] [address] Creatinine [Mass/Vol] 7.2 mg/dL High 0.5-1.3 [facility] Comment on above: Performed By: #### 2 295803, 1506290, 6881012, 24988370 ####[facility] [address] [place] [address] Glucose [Mass/Vol] 198 mg/dL Normal 55-199 [facility] Comment on above: Result Comment: If t his glucose result represents a fasting glucose, interpretation should refer to the following reference range: 55-99 mg/dL Performed By: #### 2 174438, 1834281, 8090818, 83181151 ####[facility] [address] [address] Potassium [Moles/Vol] 3.6 mmol/L Normal 3.5-5.3 [facility] Comment on above: Performed By: #### 2 212083, 8300331, 3215206, 90210537 ####[facility] [address] [place] [address] Sodium [Moles/Vol] 133 mmol/L Low 135-145 [facility] Comment on above: Performed By: #### 2 326124, 2306884, 6387943, 76414353 ####[facility] [address] [place] [address] Urea nitrogen [Mass/Vol] 17 mg/dL Normal 5-21 [facility] Comment on above: Performed By: #### 2 891957, 6596409, 5412782, 26064719 ####[facility] [address] [place] [address] Urea nitrogen/Creatinine [Mass ratio] 2 No Units Low 10-20 [facility] Comment on above: Performed By: #### 2 370295, 7530866, 2792848, 54287983 ####[facility] [address] [place] [address] CBC w/ Auto Diffon 3 Erythrocyte distribution width (RBC) [Ratio] 15.4 % High 10.9-14.2 [facility] Comment on above: Performed By: #### 2 165502, 9094187, 2802382, 08506403 ####[facility] [address] [place] [address] Hematocrit (Bld) [Volume fraction] 32.3 % Low 37.7-49.0 [facility] Comment on above: Performed By: #### 2 370749, 2203666, 2232913, 58161025 ####[facility] [address] [place] [address] Hemoglobin (Bld) [Mass/Vol] 10.9 g/dL Low 13.5-17.5 [facility] Comment on above: Performed By: #### 2 235111, 4469150, 2661697, 86190188 ####[facility] [address] [place] [address] MCH (RBC) [Entitic mass] 30.5 pg Normal 27.0-34.0 [facility] Comment on above: Performed By: #### 2 342005, 5259904, 9082170, 84587723 ####[address] [address] MCHC (RBC) [Mass/Vol] 33.9 g/dL Normal 31.4-36.0 [facility] Comment on above: Performed By: #### 2 752356, 0305061, 1938811, 80946643 ####[address] [address] MCV (RBC) [Entitic vol] 90.0 fL Normal 80.0-100.0 [facility] Comment on above: Performed By: #### 2 618520, 3643387, 8190828, 94299217 ####[address] Platelet mean volume (Bld) [Entitic vol] 8.5 fL Normal 6.4-10.8 [facility] Comment on above: Performed By: #### 2 345010, 9227560, 2949110, 97242905 ####[address] [address] Platelets (Bld) [#/Vol] 210.0 E9/L Normal 150.0-500.0 [facility] Comment on above: Performed By: #### 2 259708, 7385940, 9998533, 30594965 ####[address] [address] RBC (Bld) [#/Vol] 3.6 E12/L Low 4.3-5.9 [facility] Comment on above: Performed By: #### 2 514069, 5566539, 1173812, 59585794 ####[address] [address] WBC corrected for nucl RBC Auto (Bld) [#/Vol] 5.4 E9/L Normal 4.0-11.0 [facility] Comment on above: Result Comment: Slid e reviewed by cmk. Performed By: #### 2 299751, 1939129, 6917420, 72130036 ####[facility] [address] [place] [address] CHEMISTRYOrdered By: SYSTEM SYSTEM on 03-15-2022 Anion gap [Moles/Vol] 16 mmol/L Normal 6 - 16 mEq/L [facility] Calcium [Mass/Vol] 9.3 mg/dL Normal 8.9 - 11. 1 mg/dL [facility] Chloride [Moles/Vol] 93 mmol/L Low 101 - 1 11 mmol/L [facility] CO2 [Moles/Vol] 28 mmol/L Normal 21 - 31 mmol/L [facility] Creatinine [Mass/Vol] 7.2 mg/dL High 0.5 - 1.3 mg/dL [facility] GFR/1.73 sq M.predicted among blacks MDRD (S/P/Bld) [Vol rate/Area] 9 mL/min/1.73 m2 Low >=59mL/min/1 .73 m2 [facility] Chem S GFR/1.73 sq M.predicted among non-blacks MDRD (S/P/Bld) [Vol rate/Area] 8 mL/min/1.73 m2 Low >=59mL/min/1 .73 m2 [facility] Chem S Glucose [Mass/Vol] 198 mg/dL Normal 55 - 199 mg/dL [facility] Potassium [Moles/Vol] 3.6 mmol/L Normal 3.5 - 5.3 mmol/L [facility] Sodium [Moles/Vol] 133 mmol/L Low 135 - 145 mmol/L [facility] Urea nitrogen [Mass/Vol] 17 mg/dL Normal 5 - 21 mg/dL [facility] Urea nitrogen/Creatinine [Mass ratio] 2 mg/mg Low 10 - 20 [facility] Cardiovascular Reporton Cardiovascular Report [id number]#1. 00CD:127 Normal [facility] Consent for Treatmenton Consent for Treatment [id number]#1.0 0CD:127 Normal [facility] Consent for Treatment [id number]#1.0 0CD:127 Normal [facility] Consent for Treatment [id number]#1.0 0CD:127 Normal [facility] HEMATOLOGYOrdered By: SYSTEM SYSTEM on 03-15-2022 Basophils/100 WBC (Bld) 1.2 % Normal 0.0 - 2.0 % [facility] HemeAutoSS Basophils/Leukocytes Auto (Bld) [Pure # fraction] [...] 210.0 E9/L Normal 150.0 - 500.0 E9/L [facility] HemeAutoSS RBC (Bld) [#/Vol] 3.6 E12/L Low 4.3 - 5.9 E12/L [facility] HemeAutoSS WBC corrected for nucl RBC Auto (Bld) [#/Vol] 5.4 E9/L Normal 4.0 - 11.0 E9/L [facility] HemeAutoSS Comment on above: Result Comment: Slid e reviewed by cmk. Heart and Vascular Office/Cl inic Noteon 03-15-2022 Heart and Vascular Office/Clinic Note Normal [facility] Comment on above: Result Comment: Elec tronically Signed By: Dorian FISH, Evelyn Lopez\.br\Date and Time Signed: 03/15/22 11:33 EST Inpatient Clinical Summaryon 03-15-2022 Inpatient Clinical Summary Normal [facility] Inpatient Patient Summaryon 03-15-2022 Inpatient Patient Summary Normal [facility] Patient Education - Texton 0 03-15-2022 Patient Education - Text Normal [facility] Progress Note-Physicianon Progress Note-Physician Normal [facility] Comment on above: Result Comment: Elec tronically Signed By: Dorian FISH, Evelyn Lopez\.br\Date and Time Signed: 03/15/22 16:00 EST eGFRon 03-15-2022 GFR/1.73 sq M.predicted among blacks MDRD (S/P/Bld) [Vol rate/Area] 9 mL/min/1.73 m2 Low >=59 [facility] Comment on above: Order Comment: Order added by Discern Expert. Result Comment: eGFR is race adjusted. AA=. Performed By: #### 2 977952, 6609304, 8075441, 54448282 ####[facility] [address] [place] [address] GFR/1.73 sq M.predicted among non-blacks MDRD (S/P/Bld) [Vol rate/Area] 8 mL/min/1.73 m2 Low >=59 [facility] Comment on above: Order Comment: Order added by Discern Expert. Result Comment: Rotary Surface Grinder jm kidney disease could be indicated at eGFR's of less than 60 mL/min/1.73m2. Kidney failure is indicated at less than 15 mL/min/1.73m2. Performed By: #### 2 249559, 0221589, 3983865, 26967677 ####[facility] [address] [place] [address] XR FOOT VENITA MIN 3 VIEWSon XR [...] NATHEN LUCIA Date: 2022-02-15 11:42 Normal [facility] CULTURE WOUNDon 01-15-2022 CULTURE WOUND Culture Observations [...] Trimethoprim/Sulfameth oxazole <=20 S F Normal [facility] Comment on above: Performed By: #### W OUNDCX #### [facility] [address] [place] [address] Dr. Radha Edward Office Visit (Cardiology)on 01-11-2022 Follow-up visit Diagnoses/Problems Assessed Arteriosclerotic heart disease (414.00) (I25.10) History of PTCA (V45.82) (Z98.61) History of acute anterior wall LA (412) (I25.2) Class 1 obesity with body [...] He has a history of ASHD with FOOD AND BEVERAGE CONTROLLER intervention of the LAD in April 2018 [...] Heparin (Porcine) in NaCl 1000-0.9 UT/500ML-% Intravenous Kghrfjha4045 units every dialysis loading dose Levothyroxine Sodium [...] Recorded: 11Jan2022 11:29AM Heart Rate80, L Radial Wprlcwaw32, RUE, Sitting Dipaobzvn19, RUE, Sitting Height5 ft 10 in Ildjyx684 lb BMI Fgyobewxjd38.71 kg/m2 BSA Calculated2.21 Tobacco Useb) No Falls [...] a) No falls within the last year [facility] 250 DO Work Phone: Tobacco use status CPHS b) No -[facility] 250 DO Work Phone: Glucose Poct Glucometerson 02-26-2021 Glucose [Mass/Vol] 82 mg/dL Normal [facility] Comment on above: Result Comment: [facility] Glucose Reference Range is dependent on time and content of last meal. Glucose of more than 200 mg/dL in a nonstressed, ambulatory subject supports the diagnosis of Diabetes Mellitus. PERFORMED BY: [address] [place] [address] PATHOLOGIST TRAILER MECHANIC DEAN MCWILLIAMS M.D. Performed By: #### G LULS #### Point of Care testing , Coding Summary.on 11-07-2021 Coding Summary. Normal [facility] Coding Summary.on 11-06-2021 Coding Summary. Normal [facility] Cardiovascular Reporton 10-13 Cardiovascular Report [id number]#2. 00CD:127 [facility] Consent for Procedure/Surger yon 11-03-2021 Consent for Procedure/Surgery [id number]#1.0 0CD:127 [facility] Consent for Treatmenton 10-13 Consent for Treatment [id number]#1.0 0CD:127 [facility] Inpatient Clinical Summaryon 11-02-2021 Inpatient Clinical Summary Normal [facility] Inpatient Patient Summaryon 11-02-2021 Inpatient Patient Summary Normal [facility] Operative Reporton Operative Report Normal [facility] Comment on above: Result Comment: Elec tronically Signed By: Evelyn Alarcon MD\.br\Date and Time Signed: 11/02/21 16:32 EDT Patient Education - Texton 0 11-02-2021 Patient Education - Text Normal [facility] Progress Note-Physicianon Progress Note-Physician Normal [facility] Comment on above: Result Comment: Elec tronically Signed By: Evelyn Alarcon MD\.br\Date and Time Signed: 11/02/21 15:53 EDT Consent for Treatmenton 10-12 Consent for Treatment [id number] 0CD:127 Normal [facility] Heart and Vascular Office/Cl inic Noteon 10-26-2021 Heart and Vascular Office/Clinic Note Normal [facility] Comment on above: Result Comment: Elec tronically Signed By: Evelyn Alarcon MD\.br\Date and Time Signed: 10/26/21 15:13 EDT CBC AUTO DIFFon 08-28-2021 BASO # 0.0 103/ul Normal 0.0-0.1 [facility] Comment on above: Performed By: #### C BC #### [facility] [address] [place] [address] Dr. Radha Edward Basophils/100 WBC (Bld) 0.6 % Normal 0.2-2.0 [facility] Comment on above: Performed By: #### C BC #### [facility] [address] [address] [address] Radha Edward EO # 0.1 103/ul Normal 0.0-0.7 [facility] Comment on above: Performed By: #### C BC #### [facility] [address] [place] [address] Dr. Radha Edward Eosinophils/100 WBC (Bld) 1.7 % Normal 0.9-7.0 [facility] Comment on above: Performed By: #### C BC #### [facility] [address] [place] [address] Dr. Radha Edward Erythrocyte distribution width (RBC) [Ratio] 14.5 % Normal 11.0-15.0 [facility] Comment on above: Performed By: #### C BC #### [facility] [address] [place] [address] Dr. Radha Edward Hematocrit (Bld) [Volume fraction] 34.0 % Critically low 42.0-54.0 [facility] Comment on above: Performed By: #### C BC #### [facility] [address] [place] [address] Dr. Radha Edward Hemoglobin (Bld) [Mass/Vol] 11.1 g/dL Critically low 14.0-18.0 [facility] Comment on above: Performed By: #### C BC #### [facility] [address] [place] [address] Dr. Radha Edward IG # 0.02 10e3/ul Normal 0.00-0.03 [facility] Comment on above: Performed By: #### C BC #### [facility] [address] [place] [address] Dr. Radha Edward IG % 0.4 % Normal 0.0-0.5 [facility] Comment on above: Performed By: #### C BC #### [facility] [address] [place] [address] Dr. Radha Edward LYMPH # 1.0 103/ul Critically low 1.2-3.8 [facility] Comment on above: Performed By: #### C BC #### [facility] [address] [place] [address] Dr. Radha Edward Lymphocytes/100 WBC (Bld) 18.6 % Critically low 20.5-60.0 [facility] Comment on above: Performed By: #### C BC #### [facility] [address] [place] [address] Dr. Radha Edward MANUAL DIFF REQ NO Normal [facility] Comment on above: Performed By: #### C BC #### [facility] [address] [address] [address] Radha Edward MCH (RBC) [Entitic mass] 30.5 pg Normal 25.9-34.0 [facility] Comment on above: Performed By: #### C BC #### [facility] [address] [place] [address] Dr. Radha Edward MCHC (RBC) [Mass/Vol] 32.6 g/dL Normal 29.9-35.2 [facility] Comment on above: Performed By: #### C BC #### [facility] [address] [place] [address] Dr. Radha Edward MCV (RBC) [Entitic vol] 93.4 fL Normal 80.0-94.0 [facility] Comment on above: Performed By: #### C BC #### [facility] [address] [place] [address] Dr. Radha Edward MONO # 0.8 103/ul Normal 0.3-0.8 [facility] Comment on above: Performed By: #### C BC #### [facility] [address] [place] [address] Dr. Radha Edward Monocytes/100 WBC (Bld) 15.1 % Critically high 1.7-12.0 [facility] Comment on above: Performed By: #### C BC #### [facility] [address] [place] [address] Dr. Radha Edward NEUT # 3.5 103/ul Normal 1.4-6.5 [facility] Comment on above: Performed By: #### C BC #### [facility] [address] [place] [address] Dr. Radha Edward Neutrophils/100 WBC (Bld) 63.6 % Normal 43.0-75.0 [facility] Comment on above: Performed By: #### C BC #### [facility] [address] [place] [address] Dr. Radha Edward Platelet mean volume (Bld) [Entitic vol] 9.8 fL Normal 9.5-13.5 [facility] Comment on above: Performed By: #### C BC #### [facility] [address] [address] [address] Radha Edward PLT 156 103/ul Normal 150-450 [facility] Comment on above: Performed By: #### C BC #### [facility] [address] [address] [address] Radha Edward RBC 3.64 106/ul Critically low 4.70-6.10 [facility] Comment on above: Performed By: #### C BC #### [facility] [address] [address] [address] Radha Edward WBC 5.4 103/ul Normal 4.0-11.0 [facility] Comment on above: Performed By: #### C BC #### [facility] [address] [place] [address] Dr. Radha Edward PROF 14(COMP METB)on 022 Albumin [Mass/Vol] 3.6 g/dL Normal 3.4-5.0 [facility] Comment on above: Performed By: #### C MP, TSH, HSTROPN #### [facility] [address] [place] [address] Dr. Radha Edward Albumin/Globulin [Mass ratio] 0.9 {ratio} Normal [facility] Comment on above: Performed By: #### C MP, TSH, HSTROPN #### [facility] [address] [place] [address] Dr. Radha Edward ALP [Catalytic activity/Vol] 135 U/L Critically high 46-116 [facility] Comment on above: Performed By: #### C MP, TSH, HSTROPN #### [facility] [address] [place] [address] Dr. Radha Edward ALT [Catalytic activity/Vol] 21 U/L Normal 16-63 [facility] [place] Comment on above: Performed By: #### C MP, TSH, HSTROPN #### [facility] [address] [place] [address] Dr. Radha Edward Anion gap [Moles/Vol] 13.6 mmol/L Normal [facility] [place] Comment on above: Performed By: #### C MP, TSH, HSTROPN #### [facility] [address] [address] [address] Radha Edward AST [Catalytic activity/Vol] 14 U/L Critically low 15-37 [facility] [place] Comment on above: Performed By: #### C MP, TSH, HSTROPN #### [facility] [address] [address] [address] Radha Edward Bilirubin [Mass/Vol] 0.6 mg/dL Normal 0.2-1.0 [facility] [place] Comment on above: Performed By: #### C MP, TSH, HSTROPN #### [facility] [address] [place] [address] Dr. Radha Edward Calcium [Mass/Vol] 9.1 mg/dL Normal 8.5-10.1 [facility] Comment on above: Performed By: #### C MP, TSH, HSTROPN #### [facility] [address] [address] [address] Radha Edward Chloride [Moles/Vol] 95 mmol/L Critically low 98-107 [facility] Comment on above: Performed By: #### C MP, TSH, HSTROPN #### [facility] [address] [place] [address] Dr. Radha Edward CO2 [Moles/Vol] 29.8 mmol/L Normal 21.0-32.0 [facility] Comment on above: Performed By: #### C MP, TSH, HSTROPN #### [facility] [address] [place] [address] Dr. Radha Edward Creatinine [Mass/Vol] 5.55 mg/dL Critically high 0.70-1.30 [facility] [place] Comment on above: Performed By: #### C MP, TSH, HSTROPN #### [facility] [address] [place] [address] Dr. Radha Edward EGFR-AF FIJIAN 13 mL/min/1.73m2 Critically low >=60 [facility] [place] Comment on above: Performed By: #### C MP, TSH, HSTROPN #### [facility] [address] [place] [address] Dr. Radha Edward EGFR-NON AF FIJIAN 10 mL/min/1.73m2 Critically low >=60 [facility] [place] Comment on above: Performed By: #### C MP, TSH, HSTROPN #### [facility] [address] [address] [address] Radha Edward Globulin (S) [Mass/Vol] 3.9 g/dL Normal [facility] [place] Comment on above: Performed By: #### C MP, TSH, HSTROPN #### [facility] [address] [place] [address] Dr. Radha Edward Glucose [Mass/Vol] 164 mg/dL Critically high 74-106 T [facility] Comment on above: Performed By: #### C MP, TSH, HSTROPN #### [facility] [address] [place] [address] Dr. Radha Edward Potassium [Moles/Vol] 3.4 mmol/L Critically low 3.5-5.1 [facility] [place] Comment on above: Performed By: #### C MP, TSH, HSTROPN #### [facility] [address] [place] [address] Dr. Radha Edward Protein [Mass/Vol] 7.5 g/dL Normal 6.4-8.2 [facility] Comment on above: Performed By: #### C MP, TSH, HSTROPN #### [facility] [address] [place] [address] Dr. Radha Edward Sodium [Moles/Vol] 135 mmol/L Critically low 136-145 Th [facility] Comment on above: Performed By: #### C MP, TSH, HSTROPN #### [facility] [address] [place] [address] Dr. Radha Edward Urea nitrogen [Mass/Vol] 13.0 mg/dL Normal 7.0-18.0 [facility] [place] Comment on above: Performed By: #### C MP, TSH, HSTROPN #### [facility] [address] [place] [address] Dr. Radha Edward Urea nitrogen/Creatinine [Mass ratio] 2.3 mg/mg Normal [facility] Comment on above: Performed By: #### C MP, TSH, HSTROPN #### [facility] [address] [address] [address] Radha Edward TROPONIN, HIGH SENSITIVITYon 08-28-2021 HSTROP 11.8 pg/mL Normal 4.0-76.1 [facility] [place] Comment on above: Result Comment: CUT- OFF POINTS HAVE BEEN ESTABLISHED BASED ON THE FOURTH UNIVERSAL DEFINITIONS OF MYOCARDIAL INFARCTION. THE UPPER REFERENCE LIMIT (URL) OF TROPONIN, DEFINED THE 99TH PERCENTILE OF cTnI DISTRIBUTION IN A REFERENCE POPULATION, HAS BEEN CONFIRMED THE DECISION THRESHOLD FOR LA DIAGNOSIS. Performed By: #### C MP, TSH, HSTROPN #### [facility] [address] [address] [address] Radha Edward TSHon 08-28-2021 TSH 0.749 uIU/mL Normal 0.358-3.740 [facility] Comment on above: Performed By: #### C MP, TSH, HSTROPN #### [facility] [address] [address] [address] Radha Edward XR CHEST 1 Von 08-28-2021 XR CHEST 1 V CHEST X-RAY, 1 VIEW HISTORY: Bradycardia. Chest pain. COMPARISON: 09/01/2019. FINDINGS: The cardiac silhouette is enlarged. Left hemidiaphragm is elevated. The lungs are grossly clear. There are no pleural effusions. There is no pneumothorax. IMPRESSION: No evidence of acute cardiopulmonary disease. Electronically authenticated by: CHRISTIANNE MELVIN Date: 2021-08-28 18:59 Normal [facility] Office Visit (Cardiology)on 07-13-2021 Follow-up visit Diagnoses/Problems [...] COVID illness in 2019. He underwent anterior LA with PCI chronic total occlusion of the proximal through mid LAD x2 drug-eluting stents in March 2018; follow-up echocardiogram revealed low normal left ventricular function with ejection fraction of 50% in September 2018. In March 2020 he underwent COVID infection with prolonged intubation and hospitalization in [place] with multiorgan failure details of which have [...] Heparin (Porcine) in NaCl 1000-0.9 UT/500ML-% Intravenous [id number] unitts every dialysis loading dose hydrALAZINE HCl [...] Recorded: 13Jul2021 11:47AM Heart Rate66, R Radial Yrnqtnza067, RUE, Sitting Wpoxbgxtz88, RUE, Sitting Height5 ft 10 in Pwmctf878 lb BMI Yvneemgkiu06.14 kg/m2 BSA Calculated2.19 Tobacco Useb) No PHQ-2 [...] Jul 13 2021 12:27PM EST (Author) Normal [facility] Tobacco Screening.on 022 Adult depression screening assessment No [facility] [address] DO Work Phone: Fall risk assessment a) No falls within the last year [facility] [address] DO Work Phone: Tobacco use status CPHS b) No [facility] [address] DO Work Phone: Echocardiogramon 10-20-[address] [facility] [address] [facility], [address] [place] [address] TRANSTHORACIC ECHOCARDIOGRAM REPORT Patient Name: CORBIN Bowers Physician: [id number] Alfredo Saravia DO Study Date: 10/20/2020 Referring [id number] CORBIN YING Physician: MRN/PID: [id number] PCP: Violeta Alejo Accession/Order#: [id number] Department 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 Author Type: Physician Senior Materials Scientist Type: Progress Notes Filed: 08/28/2019 10:29 AM Note Text: [facility] NOTE NAME: CHRISTY MURPHY NO.: [id number] DATE OF SERVICE: 08/27/2019 [facility] DATE OF : 1955 CHIEF COMPLAINT: Followup for discharge. SUBJECTIVE FINDINGS: The patient was seen in his room at [facility] lying in bed. I remained greater [...] discharge process on this patient. DICTATED BY: MARIANN Waterman JOB# [id number] cc:Toña Barker Normal [facility] PROGRESSon 08-07-2019 PROGRESS HNO ID: [id number] Author: Diane Chacon) Abdullahi Service: ? Author Type: Physician Senior Materials Scientist Type: Progress Notes Filed: 08/11/2019 6:39 AM Note Text: [facility] NOTE NAME: CHRISTY MURPHY NO.: [id number] DATE OF SERVICE: 08/07/2019 [facility] DATE OF : 1955 [facility] CHART VISIT NOTE CHIEF COMPLAINT: Followup for end-stage renal disease, weakness, and other medical issues. SUBJECTIVE FINDINGS: The patient was seen in his room at [facility] lying in bed. I remained greater [...] any bowel issues. MEDICATIONS: Reviewed in the long term record. CODE STATUS: Full code. PHYSICAL EXAMINATION: [...] DICTATED BY: Diane Lerner PA-C PG/Meagan JOB# [id number] cc:[facility] Normal [facility] PROGRESSon 07-29-2019 PROGRESS HNO ID: [id number] Author: Diane Lerner (Pa) Service: ? Author Type: Physician Senior Materials Scientist Type: Progress Notes Filed: 07/30/2019 12:39 PM Note Text: [facility] NOTE NAME: CHRISTY MURPHY NO.: [id number] DATE OF SERVICE: 07/29/2019 [facility] DATE OF : 1955 CHIEF COMPLAINT: Follow up for end-stage renal disease, weakness, and other medical issues. SUBJECTIVE FINDINGS: The patient was seen in his room at [facility] sitting up in his wheelchair. I [...] SYSTEMS: See above. MEDICATIONS: Reviewed in the long term record. CODE STATUS: Full code. PHYSICAL EXAMINATION: [...] DICTATED BY: Diane Lerner PA-C PG/Meagan JOB# [id number] cc:Toña Barker Normal [facility] PROGRESSon 07-27-2019 PROGRESS HNO ID: [id number] Author: Saad Ahumada Service: ? Author Type: Physician Type: Progress Notes Filed: 07/29/2019 5:29 PM Note Text: [facility] NOTE NAME: CHRISTY MURPHY NO.: [id number] DATE OF SERVICE: 07/27/2019 To[facility] DATE [...] family. DICTATED BY: MD FLAKITO White/Meagan JOB# [id number] cc:[facility] Normal [facility] PROGRESSon 07-16-2019 PROGRESS HNO ID: [id number] Author: Diane Chacon) Abdullahi Service: ? Author Type: Physician Senior Materials Scientist Type: Progress Notes Filed: 07/17/2019 11:59 AM Note Text: [facility] NOTE NAME: CHRISTY MURPHY NO.: [id number] DATE OF SERVICE: 07/16/2019 [facility] DATE OF : 1955 [facility] CHART VISIT NOTE CHIEF COMPLAINT: Followup for potential discharge. SUBJECTIVE FINDINGS: The patient was seen in his room at [facility] sitting up in his wheelchair. I [...] Have asked our staff to contact his sight mounter's office to clarify his aspirin dose. 3. [...] DICTATED BY: Diane Lerner PA-C PG/Meagan JOB# [id number] cc:Toña Barker Normal [facility] PROGRESSon 07-13-2019 PROGRESS HNO ID: [id number] Author: Diane Lerner (Pa) Service: ? Author Type: Physician Senior Materials Scientist Type: Progress Notes Filed: 07/14/2019 2:18 PM Note Text: [facility] NOTE NAME: CHRISTY MURPHY NO.: [id number] DATE OF SERVICE: 07/13/2019 [facility] DATE OF : 1955 [facility] CHART VISIT NOTE CHIEF COMPLAINT: Skilled followup visit for end-stage renal disease, coronary artery disease, and other medical issues. SUBJECTIVE FINDINGS: The patient was seen in his room at [facility] for a skilled followup visit. I [...] SYSTEMS: See above. MEDICATIONS: Reviewed in the long term record. CODE STATUS: Full code. PHYSICAL EXAMINATION: [...] We will ask staff to contact his sight mounter's office to clarify the aspirin dose. 3. [...] DICTATED BY: Diane Lerner PA-C PG/Meagan JOB# [id number] cc:[facility] Normal [facility] PROGRESSon 07-09-2019 PROGRESS HNO ID: [id number] Author: Diane Chacon) Abdullahi Service: ? Author Type: Physician Senior Materials Scientist Type: Progress Notes Filed: 07/13/2019 10:19 AM Note Text: [facility] NOTE NAME: CHRISTY MURPHY NO.: [id number] DATE OF SERVICE: 07/09/2019 [facility] DATE OF : 1955 CHIEF COMPLAINT: Skilled followup visit for coronary artery disease, renal disease, and other medical issues. SUBJECTIVE FINDINGS: The patient was seen in his room at [facility] for skilled followup visit. I remained greater than 6 feet away from him for the evaluation due to the COVID-19 pandemic. The patient had been refusing heparin as he related that this was uncomfortable and that he was bleeding after administration. He is on longstanding Effient as ordered by Cardiology and has a history of stents. He follows with Dr. Ying in [place]. In addition, his current aspirin dose is [...] Please see above. MEDICATIONS: Reviewed in the long term record. CODE STATUS: Full code. PHYSICAL EXAMINATION: [...] DICTATED BY: Diane Lerner PA-C PG/Meagan JOB# [id number] cc:[facility] Normal [facility] PROGRESSon 07-01-2019 PROGRESS HNO ID: [id number] Author: Diane Lerner (Pa) Service: ? Author Type: Physician Senior Materials Scientist Type: Progress Notes Filed: 07/03/2019 7:47 AM Note Text: [facility] NOTE NAME: CHRISTY MURPHY NO.: [id number] DATE OF SERVICE: 07/01/2019 [facility] DATE OF : 1955 [facility] CHART VISIT NOTE CHIEF COMPLAINT: Venous stasis of the legs, weakness, and other medical issues. SUBJECTIVE FINDINGS: The patient was seen in his room at [facility] for skilled followup visit. I remained [...] SYSTEMS: See above. MEDICATIONS: Reviewed in the long term record. CODE STATUS: Full code. PHYSICAL EXAMINATION: [...] DICTATED BY: Diane Lerner PA-C PG/Meagan JOB# [id number] cc:[facility] Normal [facility] PROGRESSon 06-26-2019 PROGRESS HNO ID: [id number] Author: Diane Lerner (Pa) Service: ? Author Type: Physician Senior Materials Scientist Type: Progress Notes Filed: 06/29/2019 12:17 PM Note Text: [facility] NOTE NAME: CHRISTY MURPHY NO.: [id number] DATE OF SERVICE: 06/26/2019 [facility] DATE OF : 1955 [facility] CHART VISIT NOTE CHIEF COMPLAINT: Followup for renal disease, type 2 diabetes mellitus, and other medical issues. SUBJECTIVE FINDINGS: The patient was seen in his room sitting up in his wheelchair at [facility]. I remained greater than 6 feet [...] SYSTEMS: See above. MEDICATIONS: Reviewed in the long term record. CODE STATUS: Full code. PHYSICAL EXAMINATION: [...] will monitor. DICTATED BY: Diane Lerner PA-C PG/Meagan JOB# [id number] cc:Toña Barker Normal [facility] PROGRESSon 06-18-2019 PROGRESS HNO ID: [id number] Author: Diane Chacon) Abdullahi Service: ? Author Type: Physician Senior Materials Scientist Type: Progress Notes Filed: 06/19/2019 1:37 PM Note Text: [facility] NOTE NAME: CHRISTY MURPHY NO.: [id number] DATE OF SERVICE: 06/18/2019 [facility] DATE OF : 1955 [facility] CHART VISIT NOTE CHIEF COMPLAINT: Follow up for end-stage renal disease, type 2 diabetes mellitus, weakness, and other medical issues. SUBJECTIVE FINDINGS: The patient was seen in his room sitting up in his wheelchair at [facility]. I remained greater than 6 feet [...] lift for transfers. MEDICATIONS: Reviewed in the long term record. CODE STATUS: Full code. PHYSICAL EXAMINATION: [...] DICTATED BY: Diane Lerner PA-C PG/Meagan JOB# [id number] cc:[facility] Normal [facility] PROGRESSon 06-16-2019 PROGRESS HNO ID: [id number] Author: Diane Lerner (Pa) Service: ? Author Type: Physician Senior Materials Scientist Type: Progress Notes Filed: 06/17/2019 3:57 PM Note Text: [facility] NOTE NAME: CHRISTY MURPHY NO.: [id number] DATE OF SERVICE: 06/16/2019 [facility] DATE OF : 1955 CHIEF COMPLAINT: Skilled followup visit for type 2 diabetes mellitus, renal disease, and other medical issues. SUBJECTIVE FINDINGS: The patient was seen in his room lying in bed at [facility]. I remained greater than 6 feet [...] Please see above. MEDICATIONS: Reviewed in the long term record. CODE STATUS: Full code. PHYSICAL EXAMINATION: Temperature 98.2, pulse 75, respirations 16, BP 108/55, pulse oximetry 96%. Examination revealed an obese, hvycrl-sqiz-orpjmqrqb male lying in bed. He was in [...] DICTATED BY: Diane Lerner PA-C PG/Meagan JOB# [id number] cc:Toña Barker Normal [facility] PROGRESSon 06-15-2019 PROGRESS HNO ID: [id number] Author: Saad Ahumada Service: ? Author Type: Physician Type: Progress Notes Filed: 06/18/2019 4:17 PM Note Text: [facility] NOTE NAME: CHRISTY MURPHY NO.: [id number] DATE OF SERVICE: 06/15/2019 Toña Barker DATE OF : 1955 NEW PATIENT HISTORY AND PHYSICAL HISTORY OF PRESENT ILLNESS: The patient is a 63-year-old male who was admitted to us from [facility] with the diagnosis of acute hypoxemic [...] hospital with fever and increasing malaise. At [facility], he was treated for congestive heart failure exacerbation and bacterial pneumonia with antibiotics. However, his condition worsened requiring intubation, after which he was transferred to [facility] Intensive Care Unit where he was [...] possible. DICTATED BY: MD FLAKITO White/Meagan JOB# [id number] cc:Toña Barker Normal [facility] Operative Reporton 0 Operative Report MR#: [id number] S [facility] Pt. Name: Corbin Murphy Room #: [...] patient was consented and brought to the laborer [employer]. The patient was placed in supine position. [...] and the tubing of the PermCath size 14.5-Wallisian x 24 cm was tunneled starting with [...] Amaro MD Date Trans: 06/04/2019 01:35 P/mmo [id number] cc: Violeta Alejo M.D. [address], [facility] [id number] [facility] Vital Signs Date Time Vital Sign Value Performing Clinician Facility 01-31-2023 09:47-0500 Body height 177.8 cm Corbin Ying DO Work Phone: [facility] 01-31-2023 09:47-0500 Body mass index (BMI) [Ratio] 29.41 kg/m2 Corbin Ying DO Work Phone: [facility] 01-31-2023 09:47-0500 Body weight 92.99 kg Corbin Ying DO Work Phone: [facility] 01-31-2023 09:47-0500 Diastolic blood pressure 62 mm[Hg] Corbin Ying DO Work Phone: [facility] 01-31-2023 09:47-0500 Heart rate 76 /min Corbin Ying DO Work Phone: [facility] 01-31-2023 09:47-0500 Systolic blood pressure 122 mm[Hg] Corbin Ying DO Work Phone: [facility] 08-09-2022 14:15-0400 Body height 180.34 cm Alfredo Acosta Other [employer] Other 08-09-2022 14:15-0400 Body mass index (BMI) [Ratio] 28.73 kg/m2 Alfredo Acosta Other [employer] Other 08-09-2022 14:15-0400 Body temperature 97.3 [degF] Alfredo Acosta Other [employer] Other 08-09-2022 14:15-0400 Body weight 93.44 kg Alfredo Acosta Other [employer] Other 08-09-2022 14:15-0400 Diastolic blood pressure 62 mm[Hg] Alfredo Acosta Other [employer] Other 08-09-2022 14:15-0400 Systolic blood pressure 99 mm[Hg] Alfredo Acosta Other [employer] Other 07-30-2022 09:03-0400 Blood Pressure Location Evelyn Alarcon [facility] 07-30-2022 09:03-0400 Diastolic blood pressure 60 mm[Hg] Evelyn Alarcon [facility] 07-30-2022 09:03-0400 Heart rate 77 /min Evelyn Alarcon [facility] 07-30-2022 09:03-0400 SaO2% (BldA) [Mass fraction] 98 % Evelyn Alarcon [facility] 07-30-2022 09:03-0400 Systolic blood pressure 110 mm[Hg] Evelyn Alarcon [facility] 07-12-2022 13:24-0400 Blood Pressure Location Evelyn Alarcon [facility] 07-12-2022 13:24-0400 Diastolic blood pressure 62 mm[Hg] Evelyn Alarcon [facility] 07-12-2022 13:24-0400 Heart rate 94 /min Evelyn Alarcon [facility] 07-12-2022 13:24-0400 SaO2% (BldA) [Mass fraction] 97 % Evelyn Alarcon [facility] 07-12-2022 13:24-0400 Systolic blood pressure 94 mm[Hg] Evelyn Alarcon [facility] 07-09-2022 19:00-0400 Diastolic blood pressure 65 mm[Hg] [facility] 07-09-2022 19:00-0400 Heart rate 74 /min [facility] 07-09-2022 19:00-0400 Mean blood pressure 80 mm[Hg] [facility] 07-09-2022 19:00-0400 Respiratory rate 17 /min [facility] 07-09-2022 19:00-0400 Systolic blood pressure 110 mm[Hg] [facility] 07-09-2022 18:30-0400 Heart rate 75 /min [facility] 07-09-2022 18:30-0400 Respiratory rate 23 /min [facility] 07-09-2022 18:00-0400 Diastolic blood pressure 60 mm[Hg] [facility] 07-09-2022 18:00-0400 Heart rate 79 /min [facility] 07-09-2022 18:00-0400 Mean blood pressure 73 mm[Hg] [facility] 07-09-2022 18:00-0400 Respiratory rate 11 /min [facility] 07-09-2022 18:00-0400 SaO2% (BldA) [Mass fraction] 96 % [facility] 07-09-2022 18:00-0400 Systolic blood pressure 98 mm[Hg] [facility] 07-09-2022 17:30-0400 Diastolic blood pressure 55 mm[Hg] [facility] 07-09-2022 17:30-0400 Mean blood pressure 67 mm[Hg] [facility] 07-09-2022 17:30-0400 SaO2% (BldA) [Mass fraction] 98 % [facility] 07-09-2022 17:30-0400 Systolic blood pressure 90 mm[Hg] [facility] 07-09-2022 17:25-0400 Body temperature 98.06 [degF] [facility] 07-09-2022 17:25-0400 Heart rate 95 /min [facility] 07-09-2022 17:25-0400 Respiratory rate 16 /min [facility] 07-09-2022 17:25-0400 SaO2% (BldA) [Mass fraction] 98 % [facility] 03-15-2022 11:05-0500 Blood Pressure Location Evelyn Dorian [facility] 03-15-2022 11:05-0500 Diastolic blood pressure 50 mm[Hg] Evelyn Alarcon [facility] 03-15-2022 11:05-0500 Heart rate 75 /min Evelyn Alarcon [facility] 03-15-2022 11:05-0500 SaO2% (BldA) [Mass fraction] 98 % Evelyn Alarcon [facility] 03-15-2022 11:05-0500 Systolic blood pressure 90 mm[Hg] Evelyn Alarcon [facility] 01-11-2022 11:29-0500 Body height 177.8 cm Violeta M Hoy Work Phone: [facility] 250 DO Work Phone: 01-11-2022 11:29-0500 Body mass index (BMI) [Ratio] 32.71 kg/m2 Violeta M Hoy Work Phone: [facility] 250 DO Work Phone: 01-11-2022 11:29-0500 Body surface area Derived from formula 2.21 m2 Violeta M Hoy Work Phone: [facility] 250 DO Work Phone: 01-11-2022 11:29-0500 Body weight 103.42 kg Violeta M Hoy Work Phone: [facility] 250 DO Work Phone: 01-11-2022 11:29-0500 Diastolic blood pressure 60 mm[Hg] Violeta M Hoy Work Phone: [facility] 250 DO Work Phone: 01-11-2022 11:29-0500 Heart rate 80 /min Violeta M Hoy Work Phone: [facility] 250 DO Work Phone: 01-11-2022 11:29-0500 Systolic blood pressure 98 mm[Hg] Violeta M Hoy Work Phone: [facility] 250 DO Work Phone: 11-02-2021 12:32-0400 Blood Pressure Location Evelyn Alarcon [facility] 11-02-2021 12:32-0400 Body temperature 97.7 [degF] Evelyn Alarcon [facility] 11-02-2021 12:32-0400 Diastolic blood pressure 63 mm[Hg] Evelyn Alarcon [facility] 11-02-2021 12:32-0400 Heart rate 72 /min Evelyn Alarcon [facility] [facility] 11-02-2021 12:32-0400 Respiratory rate 16 /min Evelyn Alarcon [facility] 11-02-2021 12:32-0400 SaO2% (BldA) [Mass fraction] 96 % Evelyn Alarcon [facility] 11-02-2021 12:32-0400 Systolic blood pressure 105 mm[Hg] Evelyn Alarcon [facility] 10-26-2021 14:53-0400 Blood Pressure Location Evelyn Alarcon [facility] 10-26-2021 14:53-0400 Diastolic blood pressure 66 mm[Hg] Evelyn Alarcon [facility] 10-26-2021 14:53-0400 Heart rate 82 /min Evelyn Alarcon [facility] 10-26-2021 14:53-0400 SaO2% (BldA) [Mass fraction] 97 % Evelyn Alarcon [facility] 10-26-2021 14:53-0400 Systolic blood pressure 107 mm[Hg] Evelyn Alarcon [facility] 07-13-2021 11:47-0400 Body height 177.8 cm Violeta Falcon [employer] Work Phone: [facility] [employer] 250 DO Work Phone: 07-13-2021 11:47-0400 Body mass index (BMI) [Ratio] 32.14 kg/m2 Violeta Falcon [employer] Work Phone: [facility] [employer] 250 DO Work Phone: 07-13-2021 11:47-0400 Body surface area Derived from formula 2.19 m2 Violeta Falcon [employer] Work Phone: [facility] [facility] DO Work Phone: 07-13-2021 11:47-0400 Body weight 101.61 kg Violeta Falcon Hoy Work Phone: [facility] 250 DO Work Phone: 07-13-2021 11:47-0400 Diastolic blood pressure 76 mm[Hg] Violeta Falcon Hoy Work Phone: [facility] DO Work Phone: 07-13-2021 11:47-0400 Heart rate 66 /min Violeta Falcon Hoy Work Phone: [facility] [facility] DO Work Phone: 07-13-2021 11:47-0400 Systolic blood pressure 112 mm[Hg] Violeta Falcon Hoy Work Phone: [facility] DO Work Phone: Encounters Encounter Date Encounter Type Care Provider Facility Start: 02-06-2023 ambulatory DEIDRE SANDERSON [facility] Start: 01-31-2023 End: 01-31-2023 ambulatory [facility] Ambulatory Start: 01-31-2023 End: 01-31-2023 Office outpatient visit 15 minutes [facility] DO Work Phone: [facility] Comment on above: Arteriosclerotic hea rt disease; S/P PTCA (percutaneous transluminal coronary angioplasty); ESRD (end stage renal disease) on dialysis ([facility]); Diabetes mellitus of other type without complication, unspecified whether nursing home insulin use ([facility]); Essential hypertension; Hyperlipidemia, unspecified hyperlipidemia type; Never smoked any substance Start: 01-18-2023 Encounter for other preprocedural examination [facility] Start: 01-18-2023 End: 01-18-2023 ambulatory [facility] Start: 01-16-2023 Encounter for other preprocedural examination EVELYN ALARCON [facility] Start: 01-15-2023 End: 01-15-2023 ambulatory EVELYN ALARCON [facility] Start: 01-09-2023 End: 01-10-2023 ambulatory ROSANNE [facility] Start: 10-16-2022 ambulatory ROSANNE [facility] Start: 10-02-2022 End: 10-02-2022 ambulatory EVELYN ALARCON [facility] Start: 08-16-2022 End: 08-17-2022 ambulatory Evelyn HopeElodia Dorian Facility:[facility] Start: 08-16-2022 End: 08-16-2022 Patient encounter procedure Evelyn HopeElodia Dorian [facility] Start: 08-15-2022 Rx Renewal Violeta Alejo Work Phone: [facility] 250 DO Work Phone: Start: 08-09-2022 End: 08-09-2022 ambulatory Alfredo Acosta Other [facility] [employer] Other Start: 08-09-2022 Office outpatient vi sit 25 minutes Alfredo Acosta [facility] Start: 07-30-2022 End: 07-31-2022 ambulatory Evelyn HopeElodia Dorian Facility:[facility] Start: 07-30-2022 End: 07-30-2022 Patient encounter procedure Evelyn HopeElodia Dorian [facility] Start: 07-18-[address] Violeta Alejo Facility:[id number] Start: 07-12-2022 End: 07-20-2022 Evaluation and management of inpatient Fuentes Rodriguez Facility:[facility] Start: 07-12-2022 End: 07-13-2022 ambulatory Evelyn HopeElodia Dorian Facility:[facility] Start: 07-12-2022 End: 07-17-2022 Pre-admission assessment Evelyn Alarcon [facility] Start: 07-12-2022 End: 07-12-2022 Patient encounter procedure Noelkeenan HopeElodia Harveyan [facility] Start: 07-09-2022 End: 07-09-2022 Emergency department patient visit Adam Barakatangel Facility:[facility] Start: 07-09-2022 End: 07-09-2022 [facility] Start: 07-02-2022 End: 07-03-2022 ambulatory Evelyn Alarcon Facility:[facility] Start: 06-29-2022 End: 06-29-2022 Emergency department patient visit Reji Azar Facility:[facility] Start: 06-26-[address] VIOLETA ALEJO . Facili ty:[facility] Start: 06-05-2022 End: 06-06-[address] VIOLETA ALEJO . Facility: Start: 05-17-2022 ambulatory UNKNOWN PROVIDER Facili ty:[facility] Start: 05-09-2022 End: 05-09-[address] VIOLETA ALEJO . Facility: Start: 05-08-2022 End: 05-09-2022 ambulatory LAUREN SCHWARZ Facility:[facility] Start: 04-12-2022 End: 04-13-2022 ambulatory LEANNE HUIZAR Facility:[facility] Start: 03-20-2022 End: 03-21-2022 ambulatory LAUREN SCHWARZ Facility:[facility] Start: 03-15-2022 End: 03-15-2022 ambulatory Evelyn Alarcon Facility:[facility] Start: 03-15-2022 End: 03-16-2022 ambulatory ASHOK ALARCON Facility:[facility] Start: 03-15-2022 End: 03-15-2022 Admission to same day surgery center Evelyn Alarcon [facility] Start: 03-15-2022 End: 03-16-2022 ambulatory Evelyn HopeElodia Dorian Facility:[facility] Start: 03-15-2022 End: 03-15-2022 Patient encounter procedure ASHOK Leone DORIAN [facility] Start: 03-15-2022 End: 03-15-2022 Patient encounter procedure Evelyn HopeElodia Dorian [facility] Start: 03-06-2022 End: 03-07-2022 ambulatory LEANNE HUIZAR Facility: Start: 02-27-2022 End: 02-28-[address] VIOLETA ALEJO . Facility: Start: 02-15-2022 End: 02-16-2022 ambulatory NATHEN LUCIA Facility: Start: 01-11-2022 End: 01-11-[address] VIOLETA ALEJO . Facility: Start: 01-11-2022 Office outpatient vi sit 15 minutes Violeta Alejo Work Phone: [facility] 250 DO Work Phone: Start: 01-11-[address] Corbin Ying Facility: Start: 11-02-2021 End: 11-02-2021 ambulatory Evelyn HerminiaElodia Alarcon Facility:[facility] Start: 11-02-2021 End: 11-02-2021 Admission to same day surgery center Noelkeenan HopeElodia Alarcon [facility] Start: 10-26-2021 End: 10-27-2021 ambulatory Evelyn HerminiaElodia Dorian Facility:[facility] Start: 10-26-2021 End: 10-26-2021 Patient encounter procedure Noelkeenan HopeElodia Dorian [facility] Start: 10-25-2021 Rx Renewal Violeta Alejo Work Phone: [facility] [facility] DO Work Phone: Start: 08-28-2021 End: 08-28-2021 ambulatory PA SHIRIN MOTA . Facility: Start: 07-13-2021 Office outpatient vi sit 15 minutes Violeta Alejo Work Phone: [facility] DO Work Phone: Start: 06-04-2019 End: 06-05-2019 Patient encounter procedure VIOLETA ALEJO Facility:[facility] Procedures Date Procedure Procedure Detail Performing Clinician Start: 01-31-2023 Aspartate aminotrans ferase [Enzymatic activity/volume] in Serum or Plasma CORBIN YING Start: 01-31-2023 Lipid panel CORBIN ZHENG Start: 01-31-2023 Alanine aminotransfe rase [Enzymatic activity/volume] in Serum or Plasma CORBIN YING Start: 07-16-2022 Arteriovenous fistul a (morphologic abnormality) [...] I (substance) Evelyn Alarcon Comment on above: 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 creation of av fistu la of left arm. Cardiac catheterization Enoch Alejo Work Phone: Cholecystectomy Violeta Duron isaias Work Phone: Cholecystectomy Evelyn Harveya n Colonoscopy Violeta Alejo Work Phone: H/O: tracheostomy Evelyn Os man Hernia of abdominal cavity (disorder) Evelyn Alarcon History of percutane ous transluminal coronary angioplasty History of PTCA Violeta Alejo Work Phone: Placement of stent i n cardiac conduit Evelyn Alarcon Renal lithotripsy Violeta Alejo Work Phone: Revision of vascular procedure Violeta Alejo Work Phone: Surgical procedure Violeta Alejo Work Phone: Comment on above: Sclerosing Multiple Veins By Injection - One Leg; Tonsillectomy and adenoidectomy Violeta Alejo Work Phone: Vasectomy Violeta Alejo Work Phone: Comment on above: Surgery Vas Deferens Vasectomy; Plan of Treatment Date Care Activity Detail Author Start: 01-31-2023 End: 02-01-2024 Alanine aminotransferase [Enzymatic activity/volume] in Serum or Plasma by With P-5'-P Alanine Aminotransferase Lab Routine Arteriosclerotic heart disease Essential hypertension Hyperlipidemia, unspecified hyperlipidemia type Expected: 01/31/2023 (Approximate), Expires: 02/01/2024 [facility] Service Area Work Phone: Comment on above: Expected: 01/31/2023 (Approximate), Expi res: 02/01/2024 Start: 01-31-2023 End: 02-01-2024 Aspartate aminotransferase [Enzymatic activity/volume] in Serum or Plasma by With P-5'-P Aspartate Aminotransferase Lab Routine Arteriosclerotic heart disease Essential hypertension Hyperlipidemia, unspecified hyperlipidemia type Expected: 01/31/2023 (Approximate), Expires: 02/01/2024 [facility] Work Phone: Comment on above: Expected: 01/31/2023 (Approximate), Expi res: 02/01/2024 Start: 01-31-2023 End: 02-01-2024 Lipid 1996 panel - Serum or Plasma Lipid Panel Lab Routine Arteriosclerotic heart disease Essential hypertension Hyperlipidemia, unspecified hyperlipidemia type Expected: 01/31/2023 (Approximate), Expires: 02/01/2024 [facility] Work Phone: Comment on above: Expected: 01/31/2023 (Approximate), Expi res: 02/01/2024 Start: 01-15-2023 FUV, Provider: Corbin Ying, Status: Pen, Time: 10:10 AM FUV, Provider: Corbin Ying, Status: Pen, Time: 10:10 AM [facility] [facility] DO Work Phone: Start: 10-12-2022 Influenza vaccination Influenza Vaccine (#1) [facility] Start: 01-11-2022 FUV, Provider: Corbin Ying, Status: Pen, Time: 11:10 AM FUV, Provider: Corbin Ying, Status: Pen, Time: 11:10 AM [facility] [place] 250 DO Work Phone: Start: 10-20-2021 Echocardiography Echocardiogram [facility] Start: 03-28-2021 COVID-19 Vaccine (4 - Pfizer series) COVID-19 Vaccine (4 - Pfizer series) [facility] Start: 11-21-2005 Zoster Vaccines (1 of 2) Zoster Vaccines (1 of 2) [facility] Start: 11-21-1977 DTaP/Tdap/Td Vaccines (1 - Tdap) DTaP/Tdap/Td Vaccines (1 - Tdap) [facility] Start: 11-21-1974 Urine screening for protein Diabetes: Urine Protein Screening [facility] Start: 11-21-1973 Hepatitis C screening Hepatitis C Screening [facility] Start: 11-21-1965 Diabetic foot examination Diabetes: Foot Exam [facility] Start: 11-21-1965 Glaucoma screening Diabetes: Retinopathy Screening [facility] Start: 11-21-1961 Pneumococcal Vaccine: 65+ Years (1 - PCV) Pneumococcal Vaccine: 65+ Years (1 - PCV) [facility] Start: 1955 Creatinine measurement Creatinine Level [facility] Start: 1955 Hemoglobin A1c measurement Diabetes: Hemoglobin A1C [facility] Start: 1955 Lipid panel Lipid Panel [facility] Start: 1955 Medicare Annual Wellness Visit Medicare Annual Wellness Visit (AWV) [facility] Start: 1955 Potassium measurement Potassium Level [facility] Start: 1955 Screening for malignant neoplasm of colon [facility] Start: 1955 Thyroid stimulating hormone measurement TSH Level [facility] Immunizations Immunization Date Immunization Notes Care Provider Fa cility 01-31-2021 Pfizer-BioNTech COVID-19 Vacc 30 MCG/0.3ML Intramuscular Suspension Violeta Alejo Work Phone: [facility] [employer] 250 DO Work Phone: 07-26-2020 Pfizer-BioNTech COVID-19 Vacc 30 MCG/0.3ML Intramuscular Suspension Violeta Falcon [employer] Work Phone: [facility] [employer] 250 DO Work Phone: 07-05-2020 Pfizer-BioNTech COVID-19 Vacc 30 MCG/0.3ML Intramuscular Suspension Violeta Alejo Work Phone: [facility] Payers Date Payer Category Payer Medicare MEDICARE MEDICAR E PART A AND B [id number] 2019-Present [address] [place] [address] [id number] 2018 Unknown [id number] 2015 Unknown [id number] 1959 Medicare [id number] 1955 Unknown [id number] 2.16.840.1.059699.3.579.2.647 1955 Unknown [id number] 2.16.840.1.818739.3.579.2.732 1955 Unknown [id number] 2.16.840.1.938410.3.579.2.593 1955 Unknown [id number] 2.16.840.1.389756.3.579.2.593 1955 Unknown [id number] 2.16.840.1.838031.3.579.2.593 1955 Unknown [id number] 2.16.840.1.333327.3.579.2.593 1955 Unknown [id number] 2.16.840.1.513394.3.579.2.593 1955 Unknown [id number] 2.16.840.1.643611.3.579.2.593 1955 Unknown [id number] 2.16.840.1.520052.3.579.2.593 1955 Unknown [id number] 2.16.840.1.837397.3.579.2.593 1955 Unknown [id number] 2.16.840.1.969009.3.579.2.593 1955 Unknown [id number] 2.16.840.1.736802.3.579.2.593 1955 Unknown [id number] 2.16.840.1.934272.3.579.2.593 1955 Unknown [id number] 2.16.840.1.006331.3.579.2.727 1955 Unknown [id number] 2.16.840.1.690174.3.579.2.727 1955 Unknown [id number] 2.16.840.1.781104.3.579.2.727 1955 Unknown [id number] 2.16.840.1.502316.3.579.2.727 1955 Unknown [id number] 2.16.840.1.048667.3.579.2.727 1955 Unknown [id number] 2.16.840.1.871595.3.579.2.727 1955 Unknown [id number] 2.16.840.1.660274.3.579.2.727 1955 Unknown [id number] 2.16.840.1.829788.3.579.2.727 1955 Unknown [id number] 2.16.840.1.947784.3.579.2.727 1955 Unknown [id number] 2.16.840.1.651440.3.579.2.727 1955 Unknown [id number] 2.16.840.1.029844.3.579.2.727 1955 Unknown [id number] 2.16.840.1.878370.3.579.2.727 1955 Unknown [id number] 2.16.840.1.481110.3.579.2.356 1955 Unknown [id number] 2.16.840.1.861602.3.579.2.356 1955 Unknown [id number] 2.16.840.1.116888.3.579.2.1244 Self-pay Self Pay [id number] Unknown Social History Date Type Detail [facility] Start: 1955 Sex Assigned At Male F [facility] Start: 01-31-2023 Caffeine use Caffeine use -[place] [facility] [facility] DO Work Phone: Comment on above: 2-3 times weekly- Co ffee. 1 pop daily; Start: 07-07-2020 End: 12-21-2023 Never smoked tobacco (finding) [facility] Start: 01-31-2023 Male [facility] Tobacco smoking status Never [facility] Tobacco [facility] Comment on above: denies Tobacco smoking status No Smokin g Status Entered [facility] Start: 01-31-2023 Tobacco use and exposure Smokeless tobacco non-user [facility] Work Phone: Start: 01-31-2023 Alcohol intake Lifetime non-d carl (finding) [facility] Work Phone: Start: 1955 Sex Assigned At Not on file [facility] Work Phone: Start: 01-21-2023 End: 01-31-2023 Exposure to SARS-CoV-2 (event) Not sure [facility] Medical Equipment Procedure Code Equipment Code Equipment [...] Assessment Result Facility 07-30-2022 Functional Status No [facility] 07-12-2022 Functional Status No [facility] 07-09-2022 Functional Status N/A [facility] 03-15-2022 Functional Status N/A [facility] 03-15-2022 Functional Status No [facility] 11-02-2021 Functional Status N/A [facility] 10-26-2021 No [facility] Clinical Notes 11-02-2021 to 02-06-2023 Corbin Ying, DO - 01/31/2023 10:00 AM ESTPatient Instructions Note Date & Type Note Facility 02-06-2023 Note Subjective Patient ID: Corbin Murphy is a 67 y.o. male who presents for Post-op (S/P RUE AV Fistula creation on 01/18/23). Corbin is a 67 year old male with history of ESRD on HD via right IJ permacath who presents for follow up right brachiocephalic AVF creation on 01/18/[address] Alarcon. Patient has a history of right radiocephalic AVF that failed to mature, history of significantly stenosed vein proximal to the anastomosis. He denies any pain, erythema, calor, induration at incision site. Denies any numbness/tingling/weakness in the hand. Review of Systems Constitutional: Negative for activity change, appetite change, chills, diaphoresis, fatigue, fever and unexpected weight change. HENT: Negative for congestion, dental problem, drooling, ear discharge, ear pain, facial swelling, hearing loss, mouth sores, nosebleeds, postnasal drip, rhinorrhea, sinus pressure, sinus pain, sneezing, sore throat, tinnitus, trouble swallowing and voice change. Eyes: Negative for photophobia, pain, discharge, redness, itching and visual disturbance. Respiratory: Negative for apnea, cough, choking, chest tightness, shortness of breath, wheezing and stridor. Cardiovascular: Negative for chest pain, palpitations and leg swelling. Gastrointestinal: Negative for abdominal distention, abdominal pain, anal bleeding, blood in stool, constipation, diarrhea, nausea, rectal pain and vomiting. Skin: Negative for color change, pallor, rash and wound. Neurological: Negative for dizziness, tremors, seizures, syncope, facial asymmetry, speech difficulty, weakness, light-headedness, numbness and headaches. Objective Visit Vitals Respiration 16 Physical Exam Constitutional: General: He is not in acute distress. Appearance: Normal appearance. He is not ill-appearing. HENT: Head: Normocephalic and atraumatic. Eyes: General: No scleral icterus. Pupils: Pupils are equal, round, and reactive to light. Cardiovascular: Rate and Rhythm: Normal rate and regular rhythm. Comments: Right brachiocephalic AVF + thrill and bruit Pulmonary: Effort: Pulmonary effort is normal. Breath sounds: Normal breath sounds. Musculoskeletal: Cervical back: Neck supple. Skin: General: Skin is warm and dry. Neurological: General: No focal deficit present. Mental Status: He is alert and oriented to person, place, and time. Psychiatric: Mood and Affect: Mood normal. Behavior: Behavior normal. Thought Content: Thought content normal. Judgment: Judgment normal. Assessment/Plan Diagnoses and all orders for this visit: End stage renal disease on dialysis ([facility]) - [facility] Us Dialysis Fistula; Future -Surgical incision is well approximated without s/sx of infection. -Allow steri strips to fall off on their own. Clean daily with soap and water -Advised to continue hand exercises to promote maturation -Check fistula daily for thrill -Discussed warning s/sx of occlusion and infection. Advised to call immediately if he experiences loss of thrill, significant pain or edema to the extremity, erythema, calor, induration at the incision site. -F/U 8 weeks postop with fistula US prior to visit No diagnosis found. No orders of the defined types were placed in this encounter. No results found for this or any previous visit (from the past 36 hour(s)). No follow-ups on file. [facility] 01-31-2023 History of Present illness Narrative Subjective [...] hypotension. He has a history of remote PCI/FOOD AND BEVERAGE CONTROLLER intervention of the LAD in 2018 with [...] ESRD (end stage renal disease) on dialysis ([facility]) 4. Diabetes mellitus of other type without complication, unspecified whether nursing home insulin use ([facility]) 5. Essential hypertension 6. Hyperlipidemia, unspecified hyperlipidemia type 7. Never smoked any substance documented in this encounter [facility] Work Phone: 01-31-2023 Instructions Sarita Hernandes CMA [...] of your visit. documented in this encounter [facility] Work Phone: 01-18-2023 Note Patient: Corbin mckeon Procedure Summary Date: 01/18/23 Room / Location: [facility] OPERATING ROOM 06 / [facility] Operating Room Anesthesia Start: 1008 Anesthesia Stop: 1150 Procedure: Right Radial Cephalic Fistula Creation - CPT Codes 70628,00613,50321,10348 (Right: Arm Upper) Diagnosis: End stage renal disease on dialysis ([facility]) Encounter for pre-operative examination (End stage renal disease on dialysis ([facility]) [N18.6, Z99.2]) (Encounter for pre-operative examination [Z01.818]) [...] per anesthesia protocol. No notable events documented. [facility] 01-18-2023 Note Airway Date/Time: 01/18/2023 10:16 AM Urgency: elective Airway not difficult General Information and Staff Patient location during procedure: OR Anesthesiologist: Leanne Chavez MD Resident/CANCER GENETIC COUNSELOR/CAA: Katerin Chung MD Performed: resident/CANCER GENETIC COUNSELOR/CAA Indications and Patient Condition Indications for airway [...] 23 Number of attempts at approach: 1 [facility] 01-18-2023 Note Patient: Corbin mckeon Procedure Information Date/Time: 01/18/23 1000 Procedure: Right Upper Extremity Fistula Creation - CPT Codes 66791,57436,24118,66242 (Right) Location: [facility] OPERATING ROOM 06 / [facility] Operating Room Surgeons: Evelyn Alarcon MD [...] Plan discussed with attending. Additional Equipment Requests [facility] 01-18-2023 Note Pre-operative Histor y and [...] kidney disease Coronary artery disease Diabetes mellitus ([facility]) Heart disease Hyperlipidemia Hypertension Hypothyroidism Myocardial infarction ([facility]) Peripheral vascular disease ([facility]) Past Surgical History: Procedure Laterality Date AV [...] Phan MD PGY-4 Vascular Surgery Resident 01/18/23 [facility] 01-15-2023 Note Arteriovenous Fistul a Procedure [...] the patient was taken back to the [facility] placed in supine position appropriate cardiopulmonary except [...] present and scrubbed for the entire procedure. [facility] 01-10-[address] [facility] 01-09-2023 Note Subjective Patient ID: [...] balloon assisted maturation with Dr. Alarcon in [place] -Discussed the risks, benefits, alternatives of the procedure with the patient and time was alloted for all questions to be answered. Patient provided both verbal and written consent No diagnosis found. No orders of the defined types were placed in this encounter. No results found for this or any previous visit (from the past 36 hour(s)). No follow-ups on file. [facility] 10-16-2022 Note aSubjective Patient ID: Corbin [...] past 36 hour(s)). No follow-ups on file. [facility] 10-16-2022 Note aSubjective Patient ID: Corbin [...] without issues- dial[place]zes near [place]. Review of Systems Neurological: Positive for numbness. [...] ESRD (end stage renal disease) on dialysis ([facility]) Vascular US upper extremity hemodialysis access duplex right #ESRD on HD using CVC currently with recent creation R RCAVF - hold off on cannulation as AVF matures -continue with HD via CVC - hand/jewellery designer exercises demonstrated - US of AVF at 6-8 weeks and f/up at that time, sooner if needed [facility] 10-03-2022 Note Patient: Corbin mckeon Procedure Summary Date: 10/02/22 Room / Location: [facility] OPERATING ROOM 06 / [facility] Operating Room Anesthesia Start: 1705 Anesthesia Stop: 1846 Procedure: CREATION, RADIOCEPHALIC AV FISTULA (Right: Arm Lower) Diagnosis: (End stage renal disease) Surgeons: Evelyn Alarcon MD Responsible Provider: Petra Degroot MD Anesthesia Type: general ASA Status: 4 Anesthesia Type: general Vitals Value Taken Time BP 105/68 10/02/221858 Temp 36.2 ???C (97.2 ???F) 10/02/22 184 Pulse 74 10/02/229 Resp 18 10/02/22 185 SpO2 95 % 10/02/221858 Anesthesia Post Evaluation Patient location during evaluation: bedside Patient participation: complete - patient participated Level of consciousness: awake and alert Pain score: 0 Pain management: adequate Airway patency: patent Cardiovascular status: acceptable Respiratory status: acceptable Hydration status: acceptable Patient is hemodynamically stable and is able to be discharged from PACU per anesthesia protocol. No notable events documented. [facility] 10-02-2022 Note Patient: Corbin mckeon Procedure Summary Date: 10/02/22 Room / Location: [facility] OPERATING ROOM 06 / [facility] Operating Room Anesthesia Start: 1705 Anesthesia Stop: Procedure: CREATION, RADIOCEPHALIC AV FISTULA (Right: Arm Lower) Diagnosis: (End stage renal disease) Surgeons: Evelyn Alarcon MD Responsible Provider: Petra Degroot MD Anesthesia Type: general ASA Status: 4 Anesthesia Post Transport Note Transport to: PACU O2 Route: room air Patient Monitor: direct observation Transport: uneventful Patient condition is: stable [facility] 10-02-2022 Note Airway Date/Time: 10/02/2022 5:21 PM Urgency: elective Airway not difficult General Information and Staff Patient location during procedure: OR Anesthesiologist: Petra Degroot MD Resident/CANCER GENETIC COUNSELOR/CAA: LATRELL Luciano Performed: resident/CANCER GENETIC COUNSELOR/CAA Indications and Patient Condition Indications for airway [...] fit tight but without resistance through cords/trachea [facility] 10-02-2022 Note Patient: Corbin mckeon Procedure Information Date/Time: 10/02/22 1430 Procedure: CREATION, AV FISTULA (Right) - start as last case Location: [facility] OPERATING ROOM 06 / [facility] Operating Room Surgeons: Evelyn Alarcon MD [...] with patient who. Plan discussed with resident, CANCER GENETIC COUNSELOR and CAA. Additional Equipment Requests [facility] 08-09-2022 Evaluation note Encounter Date Diagnosis [...] dialysis fistula, subsequent encounter (ICD-10 - T82.7XXD) [employer] Other 06-08-2023 NoteUniversity Hospitals Samaritan Medical CenterComment on above:Result Comment: Electronically Signed By: Nathalie HAAS\.br\Date and Time Signed: 07/19/22 17:35 EDT\.br\Electronically Co-Signed By: Chandrakant LEW MD\.br\Date and Time Co-Signed: 07/19/2316:38 [id number] NotePT Evaluation done this . Pt. with on AM-PAC this date. Very weak and fatigued. Difficulty standing upright to use FWW safely. Recommend SNF.[facility]06-01-2023 NoteUniversity Hospitals Samaritan Medical CenterComment on above: Result Comment: Electronically Signed By: Nathalie HAAS\.br\Date and Time Signed: 07/12/22 17:08 EDT\.br\Electronically Co-Signed By: Fuentes Rodriguez MD\.br\Date and Time Co-Signed: 07/12/22 17:46 [id number] Hospital Discharge instructions Patient Education 07/09/2022 19:31:06 [...] Follow these instructions at home: Medicines Take ssxk-deo-npeduvs and prescription medicines only as told by [...] provider. Document Revised: 07/24/2021 Document Reviewed: 07/24/2021 [employer] Patient Education 2022 [email or web address]. Follow Up Care 07/09/2022 17:23:13 With:Evelyn Alarcon Address: [address] [place] [phone] Business (1) When:07/12/2022 18:59:06 Comments:Follow-up with Dr. Alarcon for further evaluation of your fistula. With:Violeta Alejo Address: [address] [place] [phone] Business (1) When:07/12/2022 18:58:50 Comments:Follow-up with your primary care provider in 3 to 5 days. If symptoms worsen, do not improve, or new symptoms arise please report back to emergency department for further evaluation. [facility]05-28-2023 MagdielUniversity Hospitals Samaritan Medical CenterComment on above:Result Comment: Electronically Signed By: DAVONTE FISH, Pedro\.br\Date and Time Signed: 07/08/22 09:40 [id number] Note [id number]:127[facility] 07-02-2022 MagdielUniversity Hospitals Samaritan Medical CenterComment on above:Result Comment: Electronically Signed By: DAVONTE FISH, Pedro\.br\Date and Time Signed: 07/02/22 17:10 [id number]:127 [facility]02-02-2023 Hospital Discharge instructions Patient Education 03/15/2022 14:06:07 [...] relax (sedative) during your procedure. Medicines Take khkp-exw-zuphrlv and prescription medicines only as told by your health care provider. Puncture site care Follow instructions from your health care provider about how to take care of the site where catheters were inserted. Make sure you: ?Wash your hands with soap and water before you change your bandage (dressing). If soap and water are not available, use hand supervisor unloading. ?Change your dressing as told by your [...] told by your health care provider. Take qqaa-lnt-ntsfhpm and prescription medicines only as told by [...] 06/14/2014 Document Revised: 02/28/2018 Document Reviewed: 02/28/2018 [employer] Patient Education 2020 [email or web address]. Follow Up Care 03/15/2022 11:30:19 With:Evelyn Alarcon Address: [address] [place] [address] Sally Ramirez [id number] Business (1) When: Unknown Comments:as needed [facility]02-02-2023 Evaluation + Plan noteExtracted from: Title:Procedure Note [...] Oxygen Protocol Patient Education Saline Lock Insert [facility]09-23-2022 Note [id number]:127[facility] 11-02-2021 Hospital Discharge instructions Patient Education 11/02/2021 [...] relax (sedative) during your procedure. Medicines Take crhj-eko-dkawwnz and prescription medicines only as told by your health care provider. Puncture site care Follow instructions from your health care provider about how to take care of the site where catheters were inserted. Make sure you: ?Wash your hands with soap and water before you change your bandage (dressing). If soap and water are not available, use hand supervisor unloading. ?Change your dressing as told by your [...] told by your health care provider. Take ohms-lxs-nowlubo and prescription medicines only as told by [...] 06/14/2014 Document Revised: 02/28/2018 Document Reviewed: 02/28/2018 [employer] Patient Education 2020 [email or web address]. Follow Up Care 10/27/2021 08:22:09 With:Evelyn Alarcon Address: [address] [place] [phone] Business (1) When: Unknown Comments:Call for followup appointment if needed With:Violeta Alejo Address: [address] [place] [phone] Business (1) When: Unknown [facility] note No data available for this section [facility] note Future Appointments Appointment Date:08/06/2022 10:00:00 AM Scheduled Provider:Evelyn Alarcon MD Location:[facility] Appointment Type:Vascular Follow [facility] ([facility]) [facility] Future Appointments Appointment Date:07/16/2022 12:00:00 PM Scheduled Provider: Location:[facility] Appointment Type:[facility]gery [facility]* Diagnosis Arteriosclerotic heart disease Coronary atherosclerosis of unspecified type of vessel, council or graft S/P PTCA (percutaneous transluminal coronary angioplasty) Postsurgical percutaneous transluminal coronary angioplasty status ESRD (end stage renal disease) on dialysis ([facility]) End stage renal disease Diabetes mellitus of other type without complication, unspecified whether salvage determiner insulin use ([facility]) Essential hypertension Unspecified essential hypertension Hyperlipidemia, unspecified hyperlipidemia type Never smoked any substance documented in this encounter [facility] Work Phone: History general Narrative - Reported* [...] LEG 2010 Hospitalization History Heart attack 04-16-18 [employer] Other Hospital Discharge instructions No data available for this section [facility] HospitalProgress note No data available for this section [facility] HospitalReason for referral (narrative)* Consultation (Routine) - Authorized Specialty Diagnoses / Procedures Referred By Khadijah tamayo Referred To Contact Cardiology Diagnoses Arteriosclerotic heart disease Procedures Follow Up In Cardiology Corbin Ying DO [address] [place] [phone] Corbin Ying DO [address] [place] [phone] Referral ID Status Reason Start Date Expiration Date V isits Requested Visits Authorized [id number] Authorized 01/31/2023 01/31/2024 1 1 [facility] Work Phone: Summary Purpose Family History No Family History Records Found Relationship Condition Age at Onset Recorded Date/T [...] COVID illness in 2019. He underwent anterior LA with PCI chronic total occlusion of the proximal through mid LAD x2 drug-eluting stents in March 2018; follow-up echocardiogram revealed low normal left ventricular function with ejection fraction of 50% in September 2018. In March 2020 he underwent COVID infection with prolonged intubation and hospitalization in [place] with multiorgan failure details of which have [...] He has a history of ASHD with FOOD AND BEVERAGE CONTROLLER intervention of the LAD in April 2018 [...] section and content) DATE CREATED AUTHOR 09/03/2019 [facility] DATE CREATED AUTHOR AUTHOR'S ORGANIZ ATION 05/19/2020 [facility] DATE CREATED AUTHOR AUTHOR'S ORGANIZ ATION 10/21/2020 [facility] DATE CREATED AUTHOR AUTHOR'S ORGANIZ ATION 01/12/2022 [employer] DATE CREATED AUTHOR AUTHOR'S ORGANIZ ATION 02/03/2022 [facility] DATE CREATED AUTHOR AUTHOR'S ORGANIZ ATION 05/19/2022 [facility] [facility] DATE CREATED AUTHOR AUTHOR'S ORGANIZ ATION 06/20/2022 [facility] DATE CREATED AUTHOR AUTHOR'S ORGANIZ ATION 08/18/2022 [facility] DATE CREATED AUTHOR AUTHOR'S ORGANIZ ATION 11/24/2022 [facility] DATE CREATED AUTHOR AUTHOR'S ORGANIZ ATION 02/03/2023 [facility] DATE CREATED AUTHOR AUTHOR'S ORGANIZ ATION 02/10/[address] [facility] Care Team (unrecognized sect ion and content) Fountain Dispenser Relationship Specialty Start Date End Date Violeta Alejo MD [address] [place] [address] PCP - General 05/22/18 REASON FOR VISIT [...] BE BASED ON THE PRIMARY CLINICAL RECORDS. [employer] provides no warranty or guarantee of the accuracy or completeness of information in this document.
== END 2023-02-28 14:30 | disposition home or self-care (01) ==
LOC: WC 14:29
PROVIDERS: PCP Family Medicine; Visit Provider Physician Assistant
DX: M79.671 Pain in right foot (principal); M79.672 Pain in left foot; E11.621 Type 2 diabetes mellitus with foot ulcer; L97.511 Non-pressure chronic ulcer of other part of right foot limited to breakdown of skin; L97.521 Non-pressure chronic ulcer of other part of left foot limited to breakdown of skin; L97.411 Non-pressure chronic ulcer of right heel and midfoot limited to breakdown of skin
CPT/HCPCS: 11042; 73630

== ENCOUNTER 2023-03-19 13:30 | Outpatient (OUT) | payer MEDICARE, SELFPAY ==
--- OUTSIDE RECORDS SUMMARY | 2023-03-19 13:48 | XMS_ITS | CCD ---
Author Name Unknown Address [address] [place] [address] Organization [facility] Care Team Providers Care Skidder Runner Name Role Phone VIOLETA ALEJO Referring Unavailable VIOLETA ALEJO Primary Care Unavailable Laly Amaro Attending Unavailable Laly Amaro Admitting Unavailable Violeta Alejo Unavailable Unavailable Unavailable Violeta Alejo Primary Care Physician [phone] PROVIDER, UNKNOWN Attending Unavailable PROVIDER, UNKNOWN Admitting [...] Unavailable Michael, Fuentes S Admitting Unavailable Chandrakant ELW Attending Unavailable Blank, Alfredo S Consulting Unavailable Blank, Alfredo S Consulting Unavailable Blank, Alfredo S Consulting Unavailable Blank, Alfredo S Consulting Unavailable Blank, Alfredo S Consulting Unavailable Blank, Alfredo S Consulting Unavailable Blank, Alfrdeo S Consulting Unavailable Blank, Alfredo S Consulting [...] F. Attending Unavailable NONE, XXXX Referring Unavailable Alfredo Acosta Unavailable Dr. Violeta Alejo Primary Care Unavail able Stepan, Dr. Corbin Roberts Attending Unava madiable Stepan, Dr. Corbin Roberts Referring Unava ilita Alejo, Dr. Violeta Fuentes Primary Care Unavail able Melo FISH, Violeta Fuentes Primary Care Provider CORBIN YING Attending Unavailable VIOLETA ALEJO Primary Care Unavailable ROSANNE ESPINOZA Attending Unavailable SFAELOS, DEIDRE Attending Unavailable SFAELOS, DEIDRE Attending Unavailable DORIAN, MOHAMED Admitting Unavailable DORIAN, MOHAMED Attending Unavailable DORIAN, MOHAMED Admitting Unavailable DORIAN, MOHAMED Attending Unavailable DORIAN, MOHAMED Admitting Unavailable DORIAN, MOHAMED Attending Unavailable SFAELOS, DEIDRE Attending Unavailable ESPINOZA, ROSANNE Referring Unavailable SFAELOS, DEIDRE Referring Unavailable Unavailable Unavailable Unavailable Allergies Allergy Classification Reported Allergen(s) Allergy Type Date of Onset Reaction(s) Facility (5 sources) Ticagrelor; Translations: [ticagrelor] Drug Allergy 0 Headache, Nausea/vomiting [facility] (14 sources) Ticagrelor; Translations: [ticagrelor] Drug Allergy 0 Unknown (qualifier value) [facility] Repository (5 sources) Ticagrelor; Translations: [Brilinta TABS] Drug Allergy Nausea, Headache, Other formerly [facility] y 250 DO Work Phone: (11 sources) Coban Bandage; Translations: [Coban Bandage] Drug allergy Eruption of skin (disorder) [facility] (4 sources) Angiotensin Converting Enzyme (Gomez) Inhibitors; Translations: [GOMEZ Inhibitors] Allergy to drug (finding) 3 Hypotension [facility] 3 Repository (3 sources) Beta-Adrenergic Joi; Translations: [Beta Adrenergic Blockers] Allergy to drug (finding) Hypotension formerly [facility] y 250 DO Work Phone: (3 sources) Bandages MISC; Translations: [Bandages MISC] Allergy to drug (finding) Rash [facility] y 250 DO Work Phone: (1 source) Angiotensin-conv erting enzyme inhibitor agent Propensity to adverse reactions 3 Other [facility] Work Phone: (2 sources) Selective beta-2 adrenoceptor stimulants; Translations: [BETA-ADRENERGIC AGENTS] Propensity to adverse reactions 3 Other [facility] Work Phone: (1 source) OTHER; Translations: [OTHER] Propensity to adverse reactions (disorder) 3 [facility] Repository Medications Current Medications Medication [...] q12hr, # 20 cap(s), Refills(s) 0, Pharmacy: [facility]/pharmacy #[id number], 178, cm, 07/09/22 17:32:00 EDT, Height/Length [...] Corticosteroid Start: 12-08-2018 FreeStyle Bre 14 Day [place] - (1 source) Start: 04-15-2018 Freestyle Bre [...] 5 mL 100 unit(s), IV, q24hr, Follow [facility] PICC line flushing policy, # 3 EA, [...] [Coronary atherosclerosis of unspecified type of vessel, [place] or graft] Onset: 9 07-09-2019 Chronic Coronary [...] source) Long-term current use of insulin; Translations: [group home (current) use of insulin] Episodic Other and [...] 05-06-2018 07-09-2019 Episodic Other aftercare (1 source) group home (current) use of insulin; Translations: [ASSISTED CURRENT USE OF INSULIN] Onset: 08-29-2021 Episodic Other aftercare (1 source) 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; Translations: [OTH CORRECTIONAL NURSE CURRENT DRUG THERAPY] Onset: 08-29-2021 Episodic Other aftercare (1 source) marine 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 superintendent (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) use of aspirin; Translations: [CORRECTIONAL NURSE CURRENT USE OF ASPIRIN] Onset: 08-29-2021 Episodic [...] Interpretation Reference Range Facility Follow-Upon 02-06-2023 Follow-Up [id number] Corbin Murphy 1955 M Date Provider Department Center 02/06/2023 DEIDRE GREEN [facility]CV[facility]ENDO [facility] No family history on file Level of Service:71220 MO POSTOP FOLLOW UP VISIT RELATED TO ORIGINAL PX Reason for Visit and Comments: Post-op [483] - S/P RUE AV Fistula creation on 01/18/23 Normal [facility] 29on 01-21-2023 29 Addendum created 01/21/23 1344 by Leanen Chavez MD Clinical Note Signed Normal [facility] APTTon 01-18-2023 ACTIVATED PARTIAL THROMBOPLASTIN TIME IN PPP BY COAGULATION ASSAY 29.4 Seconds Normal 25.0-35.0 [facility] Comment on above: Result Comment: Clin ical significance of the APTT is questionable in the presence of heparin. Performed By: #### L [id number] #### [facility] ([facility]) [address] [place] [address] Anesthesiaon 01-18-2023 Anesthesia [id number] Corbin Murphy 1955 M Date Provider Department Center 01/18/2023 4032-JOSÉ LUNDBERG [facility] OR MD Medical C No family history on file Normal [facility] BASIC METABOLIC PANELon 12-0 Anion gap [Moles/Vol] 16 mmol/L Normal 7-20 [facility] Comment on above: Performed By: #### L [id number] #### [facility] ([facility]) [address] [place] [address] Calcium [Mass/Vol] 9.6 mg/dL Normal 8.6-10.3 [facility] Comment on above: Performed By: #### L [id number] #### [facility] ([facility]) [address] [place] [address] Chloride [Moles/Vol] 100 mmol/L Normal 98-107 [facility] Comment on above: Performed By: #### L [id number] #### [facility] ([facility]) [address] [place] [address] CO2 [Moles/Vol] 23 mmol/L Normal 21-31 [facility] Comment on above: Performed By: #### L [id number] #### [facility] ([facility]) [address] [place] [address] Creatinine [Mass/Vol] 7.03 mg/dL High 0.70-1.30 [facility] Comment on above: Performed By: #### L [id number] #### [facility] ([facility]) [address] [place] [id number] GLOMERULAR FILTRATION RATE ML/MIN/1.73 SQ M.PREDICTED 7.9 mL/min/1.73m*2 Low >60.0 [facility] Comment on above: Result Comment: [facility]???s estimated glomerular filtration rate (eGFR) [...] individuals. Performed By: #### L [id number] #### [facility] ([facility]) [address] [place] [address] Glucose [Mass/Vol] 96 mg/dL Normal 70-100 [facility] Comment on above: Performed By: #### L [id number] #### [facility] ([facility]) [address] [place] [address] Potassium [Moles/Vol] 3.4 mmol/L Low 3.5-5.1 [facility] Comment on above: Performed By: #### L [id number] #### [facility] ([facility]) [address] [place] [address] Sodium [Moles/Vol] 136 mmol/L Normal 136-145 [facility] Comment on above: Performed By: #### L [id number] #### [facility] ([facility]) [address] [place] [address] Urea nitrogen [Mass/Vol] 19 mg/dL Normal 7-25 [facility] Comment on above: Performed By: #### L [id number] #### [facility] ([facility]) [address] [place] [id number] UREA NITROGEN/CREATININE (MASS RATIO) IN SER/PLAS 2.7 Normal [facility] Comment on above: Performed By: #### L [id number] #### [facility] ([facility]) [address] [place] [id number] CBCon 01-18-2023 Erythrocyte distribution width (RBC) [Ratio] 14.2 % Normal 11.5-15.0 [facility] Comment on above: Performed By: #### L [id number] ####[facility] ([facility])[address] [place] [id number] ERYTHROCYTE MEAN CORPUSCULAR HEMOGLOBIN CONCENTRATION (G/DL) BY AUTOMATED 33.2 g/dL Normal 32.0-35.0 [facility] Comment on above: Performed By: #### L [id number] ####[facility] ([facility])[address] [place] [address] Hematocrit (Bld) [Volume fraction] 35.8 % Low 39.0-55.0 [facility] Comment on above: Performed By: #### L [id number] ####[facility] ([facility])[address] [place] [address] Hemoglobin (Bld) [Mass/Vol] 11.9 g/dL Low 13.0-17.0 [facility] Comment on above: Performed By: #### L [id number] ####[facility] ([facility])[address] [place] [address] MCH (RBC) [Entitic mass] 31.2 pg Normal 27.0-33.0 [facility] Comment on above: Performed By: #### L [id number] ####[facility] ([facility])[address] [place] [address] MCV (RBC) [Entitic vol] 93.7 fL Normal 82.0-98.0 [facility] Comment on above: Performed By: #### L [id number] ####[facility] ([facility])[address] [place] [id number] PLATELETS (10*3/UL) IN BLOOD AUTOMATED COUNT 189 10*3/uL Normal 150-400 [facility] Comment on above: Performed By: #### L [id number] ####[facility] (BE[facility])[address] [place] [address] RBC (Bld) [#/Vol] 3.82 10*6/uL Low 4.20-5.70 [facility] Comment on above: Performed By: #### L [id number] ####[facility] ([facility])[address] [place] [address] WBC (Bld) [#/Vol] 6.40 10*3/uL Normal 4.00-10.60 [facility] Comment on above: Performed By: #### L [id number] ####[facility] ([facility])[address] [place] [address] Labon 01-18-2023 Lab [id number] Corbin Murphy 1955 Date Provider Department [place] 01/18/2023 2245-[facility] OPD LAB RESOURCE [facility] OPD [facility] No family history on file Normal [facility] MRSA/MSSA DNA NASALon 2022 MRSA DNA Negative Normal Negative [facility] Comment on above: Order Comment: [...] preclude nasal colonization. Performed By: #### L [id number] ####[facility] ([facility])[address] [place] [address] MSSA DNA Negative Normal Negative [facility] Comment on above: Order Comment: [...] preclude nasal colonization. Performed By: #### L [id number] ####[facility] ([facility])[address] [place] [address] NURSNOTEon 01-18-2023 NURSNOTE Prescription filled and sent home with patient. Cont with + thrill and bruit. Stable for DC home. [facility] NURSNOTE DC instructions reviewed with patient and mother, copy given. [facility] OPNOTEon 01-18-2023 OPNOTE -- Attestation signed by Evelyn Alarcon MD at 01/18/2023 2:03 PM I was present for the entire procedure. DATE OF PROCEDURE: 01/18/23 PATIENT NAME: Corbin Murphy SURGEON: * Evelyn Alarcon - Primary ASSISTANTS: Ana Snyder MD STAFF: Oil Refiner: Clifford Cheek RN Scrub Person: VELVET Schumacher Oil Refiner: NINOSKA CANO Scrub: Ron Gama CST PRE-OP DIAGNOSIS: ESRD POST-OP DIAGNOSIS: same PROCEDURE: Procedure(s): Right Radial Cephalic Fistula Creation - CPT Codes 82335,29569,90246,3683 0 (Right) ANESTHESIA: General EBL: 5 mL [...] was present for the entire procedure. Normal [facility] Orders Onlyon 01-18-2023 Orders Only [id number] Corbin Murphy 1955 [facility] Provider Department [place] 01/18/2023 ALAN HOWLEL [facility] No family history on file [facility] POCT GLUCOSE METER UNSOLICIT ED RESULTSon 01-18-2023 Glucose [Mass/Vol] 116 mg/dL High 70-105 [facility] Comment on above: Order Comment: Waive d Testing in the ED is performed under the ED CLIA certificate #[id number]. Result Comment: rtat e Performed By: #### L [id number] #### [facility] ([facility]) [address] [place] [address] POCT PERFUSION PANEL UNSOLIC ITED RESULTSon 01-18-2023 CO2 [Moles/Vol] 28.0 mmol/L Normal 21.0-29.0 [facility] Comment on above: Performed By: #### L [id number] ####[facility] ([facility])[address] [place] [address] Glucose [Mass/Vol] 116 mg/dL High 70-105 [facility] Comment on above: Performed By: #### L [id number] ####[facility] ([facility])[address] [place] [address] HCO3 (Bld) [Moles/Vol] 26.8 mmol/L Normal 23.0-28.0 [facility] Comment on above: Performed By: #### L [id number] ####[facility] ([facility])[address] [place] [address] Hematocrit (Bld) [Volume fraction] 36 % Low 38-51 [facility] Comment on above: Performed By: #### L [id number] ####[facility] ([facility])[address] [place] [address] Hemoglobin (Bld) [Mass/Vol] 12.2 g/dL Normal 12.0-17.0 [facility] Comment on above: Performed By: #### L [id number] ####[facility] ([facility])[address] [place] [address] POCT BASE EXCESS 2.0 mmol/L Normal -2.0-3.0 [facility] Comment on above: Performed By: #### L [id number] ####[facility] ([facility])[address] [place] [address] POCT IONIZED CALCIUM 1.24 mmol/L Normal 1.12-1.32 [facility] Comment on above: Performed By: #### L [id number] ####[facility] ([facility])[address] [place] [address] POCT PCO2 43.4 mmHg Normal 41.0-51.0 [facility] Comment on above: Performed By: #### L [id number] ####[facility] ([facility])[address] [place] [address] POCT PH 7.40 Normal 7.31-7.41 [facility] Comment on above: Performed By: #### L [id number] ####[facility] ([facility])[address] [place] [address] POCT PO2 43 mmHg Low 80-105 [facility] Comment on above: Performed By: #### L [id number] ####[facility] ([facility])[address] [place] [address] POCT SO2 78 % Low 95-98 [facility] Comment on above: Performed By: #### L [id number] ####[facility] ([facility])[address] [place] [id number] Potassium [Moles/Vol] 3.5 mmol/L Normal 3.5-4.9 [facility] Comment on above: Performed By: #### L [id number] ####[facility] ([facility])[address] [place] [id number] Sodium [Moles/Vol] 135 mmol/L Low 138.0-146.0 [facility] Comment on above: Performed By: #### L [id number] ####[facility] ([facility])[address] [place] [id number] PROTIME-INRon 01-18-2023 INR IN PPP BY COAGULATION ASSAY 1.00 Normal 0.90-1.10 [facility] Comment on above: Result Comment: [...] 1995;108:231S-246S. Performed By: #### L [id number] #### [facility] ([facility]) [address] [place] [address] PROTHROMBIN TIME (PT) IN PPP BY COAGULATION ASSAY 13.2 Seconds Normal 12.3-14.8 [facility] Comment on above: Performed By: #### L [id number] #### [facility] ([facility]) [address] [place] [address] Orders Onlyon 01-16-2023 Orders Only [id number] Corbin Murphy 1955 M Date Provider Department Center 01/16/2023 BEBE VICKERS [facility] family history on file Normal [facility] ANESon 01-15-2023 ANES Physical Exam Airway Mallampati: III TM distance: >3 FB Neck ROM: full Cardiovascular Rhythm: regular Rate: normal Dental Pulmonary Plan ASA 3 Moderate Normal [facility] HPon 01-15-2023 HP History Of Present Illness Corbin Murphy is a 67 y.o. male with history of ESRD and right radiocephalic AVF. Patient presents today for evaluation of his fistula with a fistulogram. Past Medical History He has a past medical history of Anemia, Chronic kidney disease, Coronary artery disease, Diabetes mellitus (CMS/HCC), Heart disease, Hyperlipidemia, Hypertension, Hypothyroidism, Myocardial infarction ([facility]/HCC), and Peripheral vascular disease ([facility]/HCC). Surgical History He has a past [...] ESRD (end stage renal disease) on dialysis ([facility]) [N18.6, Z99.2 (ICD-10-CM)] Right: Patent radial inflow artery with volume flow of 214 ml/min. Patent radial artery with biphasic waveforms. Average volume flow within radial to cephalic arteriovenous fistula is 410 ml/min. Patent outflow proximal cephalic vein with no evidence of stenosis or narrowing. Patent subclavian spectral Doppler waveforms. Notes: Indication: ESRD (end stage renal disease) on dialysis (CMS/HCC) [N18.6, Z99.2 (ICD-10-CM)] Right: Patent radial inflow [...] Problems: End stage renal disease on dialysis ([facility]) Encounter for pre-operative examination 67 yo male with history of right upper extremity AVF who presents today for fistulogram Fistulogram today, if procedure goes well patient can be discharged after procedure. Ana Phan MD PGY-4 Vascular Surgery Resident 01/15/23 [facility] Fortino 01-15-2023 ZOLTANNOTE RN educated pt on d/ c instructions. RN encouraged pt to voice any questions or concerns. Pt verbalizes no questions or concerns at this time. Pt was wheeled off of unit with all of belongings. [facility] Orders Onlyon 01-10-2023 Orders Only [id number] Corbin Murphy 1955 M Date Provider Department Center 01/10/2023 BEBE VICKERS HVCVASENDO [facility] No family history on file [facility] Follow-Upon 01-09-2023 Follow-Up [id number] Cole 1955 M Date Provider Department Center 01/09/2023 DEIDRE GREEN HVCVASENDO MD [facility] No family history on file Level of Service:90475 MO OFFICE/OUTPATIENT ESTABLISHED LOW MDM 20-29 MIN Reason for Visit and Comments: Follow-up [601546] - radiocephalic AV fistula creation 10/04/22 [facility] Follow-Upon 10-16-2022 Follow-Up [id number] Cole 1955 M Date Provider Department Center 10/16/2022 116-ROSANNE ESPINOZA HVCVASENDO MD [facility] No family history on file Level of Service:19869 MO OFFICE/OUTPT VISIT,PROCEDURE ONLY Reason for Visit and Comments: Follow-up [592735] - 2 week post op R AVF creation [facility] HPon 10-02-2022 [facility] Vascular Surgery HISTORY & PHYSICAL Reason for Admission: Right AV fistula creation History of Present Illness: Corbin Murphy is a 66 y.o. male with PMH significant for ESRD, diabetes, anemia, HTN, HLD, hypothyroidism, SD, and peripheral vascular disease. He presents today [...] for ESRD, diabetes, anemia, HTN, HLD, hypothyroidism, SD, and peripheral vascular disease who presents today for right AV fistula creation. Plan: Will proceed with right AV fistula creation today with Dr. Alarcon Risks, benefits, and alternatives were discussed with patient and he is agreeable Jessee Mitchell MD General Surgery Resident, PGY-1 Vascular Surgery Service 10/02/22 [facility] OPNOTEon 10-02-2022 OPNOTE -- Attestation signed [...] Gutierrez MD General Surgery PGY4 10/03/2022 Normal [facility] POCT PERFUSION PANEL UNSOLIC ITED RESULTSon 10-02-2022 CO2 [Moles/Vol] 26.0 mmol/L Normal 21.0-29.0 [facility] Comment on above: Performed By: #### L [id number] #### [facility] ([facility]) [address] [place] [address] Glucose [Mass/Vol] 154 mg/dL High 70-105 [facility] Comment on above: Performed By: #### L [id number] #### [facility] ([facility]) [address] [place] [address] HCO3 (Bld) [Moles/Vol] 24.5 mmol/L Normal 23.0-28.0 [facility] Comment on above: Performed By: #### L [id number] #### [facility] ([facility]) [address] [place] [address] Hematocrit (Bld) [Volume fraction] 43 % Normal 38-51 [facility] Comment on above: Performed By: #### L [id number] #### [facility] ([facility]) [address] [place] [address] Hemoglobin (Bld) [Mass/Vol] 14.6 g/dL Normal 12.0-17.0 [facility] Comment on above: Performed By: #### L [id number] #### [facility] ([facility]) [address] [place] [address] POCT BASE EXCESS -1.0 mmol/L Normal -2.0-3.0 [facility] Comment on above: Performed By: #### L [id number] #### [facility] ([facility]) [address] [place] [address] POCT IONIZED CALCIUM 1.26 mmol/L Normal 1.12-1.32 [facility] Comment on above: Performed By: #### L [id number] #### [facility] ([facility]) [address] [place] [address] POCT PCO2 41.3 mmHg Normal 41.0-51.0 [facility] Comment on above: Performed By: #### L [id number] #### [facility] ([facility]) [address] [place] [address] POCT PH 7.38 Normal 7.31-7.41 [facility] Comment on above: Performed By: #### L [id number] #### [facility] ([facility]) [address] [place] [address] POCT PO2 45 mmHg Low 80-105 [facility] Comment on above: Performed By: #### L [id number] #### [facility] ([facility]) [address] [place] [address] POCT SO2 79 % Low 95-98 [facility] Comment on above: Performed By: #### L [id number] #### [facility] ([facility]) [address] [place] [address] Potassium [Moles/Vol] 4.2 mmol/L Normal 3.5-4.9 [facility] Comment on above: Performed By: #### L [id number] #### [facility] ([facility]) [address] [place] [address] Sodium [Moles/Vol] 137 mmol/L Low 138.0-146.0 [facility] Comment on above: Performed By: #### L [id number] #### [facility] ([facility]) [address] [place] [address] US Arterial and Venous Mappi ngon 08-17-2022 US Arterial and Venous Mapping Normal [facility] Consent for Treatmenton Consent for Treatment [id number] 0CD:127 Normal [facility] Coding Queryon 08-10-2022 Coding Query Normal [facility] Outside Recordson 08-02-2022 Outside Records [id number] 0CD:127 Normal [facility] Consent for Treatmenton 07-12 Consent for Treatment [id number]#1.0 0CD:127 [facility] Heart and Vascular Office/Cl inic Noteon 07-30-2022 Heart and Vascular Office/Clinic Note [facility] Comment on above: Result Comment: Elec tronically Signed By: Dorian FISH, Evelyn Lopez\.br\Date and Time Signed: 07/30/22 09:29 EDT Outside Recordson 07-30-2022 Outside Records [id number]#1.00 CD:127 Normal [facility] Physician Orderon 07-30-2022 Physician Order [id number]#1. 00CD:127 [facility] Progress Note-Physicianon Progress Note-Physician [facility] Comment on above: Result Comment: Elec tronically Signed By: Vijaya SANDOVAL\.br\Date and Time Signed: 07/15/22 12:01 EDT\.br\Electronically Co-Signed By: Vijaya SANDOVAL\.br\Date and Time Co-Signed: 07/15/22 12:02 EDT\.br\Electronically Co-Signed By: Michael FISH, Fuentes Lemons\.br\Date and Time Co-Signed: 07/23/22 07:37 EDT C Blood Charcoalon 3 Blood Culture Charcoal [facility] Comment on above: Performed By: #### 1 [id number] ####[facility] [address] [place] [address] Blood Culture Charcoal Normal [facility] Comment on above: Performed By: #### 1 [id number] ####[facility] [address] [place] [address] Discharge Instructionson Discharge Instructions [id number]#1.0 0CD:127 Normal [facility] Monitor Recordon 07-20-2022 Monitor Record [id number]#1. 00CD:127 Normal [facility] Transfer Documentson 023 Transfer Documents [id number]#1.0 0CD:127 Normal [facility] BMPon 07-19-2022 Creatinine [Mass/Vol] 7.7 mg/dL Abnormal 0.5-1.3 [facility] Comment on above: Result Comment: Crit ical Result verified by previous result\Critical Result S_CREA:7.70 Called to JAVI JACKSON AT 3S by CATHY LERNER And Read Back For Confirmation at: 07/19/2022 08:27:40\Result S_CREA:7.70 Called to JAVI JACKSON AT 3S by CATHY LERNER And Read Back For Confirmation at: 07/19/2022 08:27:40 Performed By: #### 1 5156465, 1054682, 6026889 ####[facility] [address] [place] [address] Anion gap [Moles/Vol] 9 mmol/L Normal 6-16 [facility] Comment on above: Performed By: #### 1 1943590, 9432245, 9556791 ####[facility] [address] [place] [address] Calcium [Mass/Vol] 8.0 mg/dL Low 8.9-11.1 [facility] Comment on above: Performed By: #### 1 8729095, 3788457, 9073340 ####[facility] [address] [place] [address] Chloride [Moles/Vol] 104 mmol/L Normal 101-111 [facility] Comment on above: Performed By: #### 1 4495696, 1676236, 4944792 ####[facility] [address] [place] [address] CO2 [Moles/Vol] 27 mmol/L Normal 21-[address] [facility] Comment on above: Performed By: #### 1 1825010, 6739603, 9514681 ####[facility] [address] [place] [address] Glucose [Mass/Vol] 180 mg/dL Normal 55-199 [facility] Comment on above: Result Comment: If t his glucose result represents a fasting glucose, interpretation should refer to the following reference range: 55-99 mg/dL Performed By: #### 1 6610560, 8527679, 7665624 ####[facility] [address] [place] [address] Potassium [Moles/Vol] 3.7 mmol/L Normal 3.5-5.3 [facility] Comment on above: Performed By: #### 1 3262608, 1366135, 5836877 ####[facility] [address] [place] [address] Sodium [Moles/Vol] 136 mmol/L Normal 135-145 [facility] Comment on above: Performed By: #### 1 9609111, 1829316, 1494919 ####[facility] [address] [place] [address] Urea nitrogen [Mass/Vol] 18 mg/dL Normal 5-21 [facility] Comment on above: Performed By: #### 1 7865159, 7114586, 2796953 ####[facility] [address] [place] [address] Urea nitrogen/Creatinine [Mass ratio] 2 No Units Low 10-20 [facility] Comment on above: Performed By: #### 1 9216747, 1161911, 1701684 ####[facility] [address] [place] [address] C Blood Charcoalon Blood Culture Charcoal Normal [facility] Comment on above: Performed By: #### 1 [id number] ####[facility] [address] [place] [address] CBC w/Indiceson 07-19-2022 Erythrocyte distribution width (RBC) [Ratio] 17.6 % High 10.9-14.2 [facility] Comment on above: Performed By: #### 1 6154670, 8106478, 8184936 ####[address] [place] [address] Hematocrit (Bld) [Volume fraction] 25.0 % Low 37.7-49.0 [facility] Comment on above: Performed By: #### 1 1086222, 8127535, 0974208 ####[address] [address] Hemoglobin (Bld) [Mass/Vol] 8.3 g/dL Low 13.5-17.5 [facility] Comment on above: Performed By: #### 1 0009330, 9237322, 3696548 ####[address] [address] MCH (RBC) [Entitic mass] 30.0 pg Normal 27.0-34.0 [facility] Comment on above: Performed By: #### 1 6782721, 8030026, 6120289 ####[address] [address] MCHC (RBC) [Mass/Vol] 33.4 g/dL Normal 31.4-36.0 [facility] Comment on above: Performed By: #### 1 5954836, 1946815, 2670771 ####[address] [address] MCV (RBC) [Entitic vol] 90.1 fL Normal 80.0-100.0 [facility] Comment on above: Performed By: #### 1 6049189, 8514042, 2102118 ####[address] [address] Platelet mean volume (Bld) [Entitic vol] 8.0 fL Normal 6.4-10.8 [facility] Comment on above: Performed By: #### 1 2235379, 8138098, 4544208 ####[address] [address] Platelets (Bld) [#/Vol] 204.0 E9/L Normal 150.0-500.0 [facility] Comment on above: Performed By: #### 1 0023689, 5200406, 3059063 ####[facility] [address] [place] [address] RBC (Bld) [#/Vol] 2.8 E12/L Low 4.3-5.9 [facility] Comment on above: Performed By: #### 1 0920562, 1447820, 9358726 ####[facility] [address] [place] [address] WBC corrected for nucl RBC Auto (Bld) [#/Vol] 6.1 E9/L Normal 4.0-11.0 [facility] Comment on above: Performed By: #### 1 3136982, 7908408, 9875643 ####[facility] [address] [place] [address] Capillary Glucose POCon Glucose [Mass/Vol] 198 mg/dL High 55-99 [facility] Comment on above: Result Comment: Run Lab ConfirmationNo Coverage GivenInsulin Started Performed By: #### 2 [id number] ####[facility] [address] [place] [address] Glucose [Mass/Vol] 187 mg/dL High 55-99 [facility] Comment on above: Result Comment: Ambrocio vargas RN/ Performed By: #### 2 44853561 ####[facility] [address] [place] [address] Glucose [Mass/Vol] 110 mg/dL High 55-99 [facility] Comment on above: Result Comment: Ambrocio vargas RN/ Performed By: #### 2 40133856 ####[facility] [address] [place] [address] Glucose [Mass/Vol] 162 mg/dL High 55-99 [facility] Comment on above: Result Comment: Ambrocio vargas RN/ Performed By: #### 2 70319417 ####[facility] [address] [place] [address] Echo Transthoracic Completeo n 07-19-2022 Echo Transthoracic Complete Normal [facility] Inpatient Clinical Summaryon 07-19-2022 Inpatient Clinical Summary Normal [facility] Inpatient Patient Summaryon 07-19-2022 Inpatient Patient Summary Normal [facility] Inpatient Patient Summary [facility] Interdisciplinary Note - Paresh e Manageron 07-19-2022 Interdisciplinary Note - Carpet Floor Layer Apprentice [facility] Comment on above: Result Comment: Elec tronically Signed By: Sarah Tena\.br\Date and Time Signed: 07/19/22 10:50 EDT Monitor Recordon 07-19-2022 Monitor Record [id number]#1. 00CD:127 [facility] Monitor Record [id number]#1. 00CD:127 [facility] Monitor Record [id number] 60 [id number]#1. 00CD:127 [facility] Monitor Record [id number] 60 [id number]#1. 00CD:127 [facility] Monitor Record [id number] 60 [id number]#1. 00CD:127 [facility] Progress Note-Nurseon 2022 Progress Note-Nurse [id number]#1. 00CD:127 [facility] Progress Note-Nurse [id number]#1. 00CD:127 [facility] Progress Note-Physicianon Progress Note-Physician [facility] Comment on above: Result Comment: Elec tronically Signed By: Cristino Walker MD\.br\Date and Time Signed: 07/19/22 09:34 EDT eGFRon 07-19-2022 GFR/1.73 sq M.predicted among non-blacks MDRD (S/P/Bld) [Vol rate/Area] 7 mL/min/1.73 m2 Low >=59 [facility] Comment on above: Order Comment: Order added by Discern Expert. 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 Kidney failure is indicated at less than 15 mL/min/1.73m2. Performed By: #### 1 1897607, 1461558, 4701983 ####[facility] [address] [place] [address] BMPon 07-18-2022 Creatinine [Mass/Vol] 9.7 mg/dL Abnormal 0.5-1.3 [facility] Comment on above: Result Comment: Crit ical Result verified by repeat analysis\Critical Result S_CREA:9.70 Called to MARC SRINIVASAN AT 3S by DK DAVIES And Read Back For Confirmation at: 07/18/2022 07:11:52\Result S_CREA:9.70 Called to MARC SRINIVASAN AT 3S by DK DAVIES And Read Back For Confirmation at: 07/18/2022 07:11:52 Performed By: #### 2 257376, 1434508, 6705514, 12200178 ####[facility] [address] [place] [address] Anion gap [Moles/Vol] 15 mmol/L Normal 6-16 [facility] Comment on above: Performed By: #### 2 707499, 9023539, 2459065, 77062856 ####[facility] [address] [place] [address] Calcium [Mass/Vol] 8.1 mg/dL Low 8.9-11.1 [facility] Comment on above: Performed By: #### 2 008309, 9892783, 1869869, 25345083 ####[facility] [address] [place] [address] Chloride [Moles/Vol] 104 mmol/L Normal 101-111 [facility] Comment on above: Performed By: #### 2 368538, 6988208, 1942994, 41035984 ####[facility] [address] [place] [address] CO2 [Moles/Vol] 23 mmol/L Normal 21-[address] [facility] Comment on above: Performed By: #### 2 395847, 6671203, 4959356, 93433655 ####[facility] [address] [place] [address] Glucose [Mass/Vol] 131 mg/dL Normal 55-199 [facility] Comment on above: Result Comment: If t his glucose result represents a fasting glucose, interpretation should refer to the following reference range: 55-99 mg/dL Performed By: #### 2 511735, 7549275, 1807168, 95424566 ####[facility] [address] [place] [address] Potassium [Moles/Vol] 3.8 mmol/L Normal 3.5-5.3 [facility] Comment on above: Performed By: #### 2 253405, 7367124, 0663771, 44126472 ####[facility] [address] [place] [address] Sodium [Moles/Vol] 138 mmol/L Normal 135-145 [facility] Comment on above: Performed By: #### 2 263145, 3686562, 6586333, 49363580 ####[facility] [address] [place] [address] Urea nitrogen [Mass/Vol] 29 mg/dL High 5-21 [facility] Comment on above: Performed By: #### 2 636699, 5299912, 6617462, 20230712 ####[facility] [address] [place] [address] Urea nitrogen/Creatinine [Mass ratio] 3 No Units Low 10-20 [facility] Comment on above: Performed By: #### 2 317540, 1161127, 7629418, 09939574 ####[facility] [address] [place] [address] C Tissueon 07-18-2022 Tissue Culture Normal [facility] Comment on above: Performed By: #### 2 330826 ####[facility] [address] [place] [address] CBC w/Indiceson 07-18-2022 Erythrocyte distribution width (RBC) [Ratio] 17.2 % High 10.9-14.2 [facility] Comment on above: Performed By: #### 2 602612, 8767143, 9046387, 97619990 ####[address] [place] [address] Hematocrit (Bld) [Volume fraction] 25.0 % Low 37.7-49.0 [facility] Comment on above: Performed By: #### 2 366851, 8647127, 6479198, 00859710 ####[address] [address] Hemoglobin (Bld) [Mass/Vol] 8.5 g/dL Low 13.5-17.5 [facility] Comment on above: Performed By: #### 2 322277, 8482378, 2256665, 34839149 ####[facility] [address] [place] [address] MCH (RBC) [Entitic mass] 30.3 pg Normal 27.0-34.0 [facility] Comment on above: Performed By: #### 2 344751, 5309213, 0502994, 55955246 ####[address] [address] MCHC (RBC) [Mass/Vol] 33.9 g/dL Normal 31.4-36.0 [facility] Comment on above: Performed By: #### 2 271218, 6366260, 6933705, 72243242 ####[address] [place] [address] MCV (RBC) [Entitic vol] 89.4 fL Normal 80.0-100.0 [facility] Comment on above: Performed By: #### 2 452379, 1946503, 8508226, 21186289 ####[address] [address] Platelet mean volume (Bld) [Entitic vol] 7.2 fL Normal 6.4-10.8 [facility] Comment on above: Performed By: #### 2 544304, 0594807, 3202965, 36436999 ####[facility] [address] [place] [address] Platelets (Bld) [#/Vol] 187.0 E9/L Normal 150.0-500.0 [facility] Comment on above: Performed By: #### 2 084806, 1044708, 8886951, 38464670 ####[facility] [address] [place] [address] RBC (Bld) [#/Vol] 2.8 E12/L Low 4.3-5.9 [facility] Comment on above: Performed By: #### 2 492671, 9610175, 2232570, 00080281 ####[address] [address] WBC corrected for nucl RBC Auto (Bld) [#/Vol] 5.6 E9/L Normal 4.0-11.0 [facility] Comment on above: Performed By: #### 2 222409, 7275046, 4965312, 60246946 ####[facility] [address] [place] [address] Capillary Glucose POCon 06-0 Glucose [Mass/Vol] 288 mg/dL High 55-99 [facility] Comment on above: Result Comment: Ambrocio ELIAS Performed By: #### 2 14651455 ####[facility] [address] [place] [address] Glucose [Mass/Vol] 267 mg/dL High 55-99 [facility] Comment on above: Result Comment: Ambrocio ELIAS Performed By: #### 2 44989457 ####[facility] [address] [place] [address] Glucose [Mass/Vol] 122 mg/dL High 55-99 [facility] Comment on above: Result Comment: Ambrocio ELIAS Performed By: #### 2 25724325 ####[facility] [address] [place] [address] Glucose [Mass/Vol] 129 mg/dL High 55-99 [facility] Comment on above: Result Comment: Ambrocio ELIAS Performed By: #### 2 04602619 ####[facility] [address] [place] [address] Interdisciplinary Note - Parehs e Manageron 07-18-2022 Interdisciplinary Note - Carpet Floor Layer Apprentice [facility] Comment on above: Result Comment: Elec tronically Signed By: Obie TORREZ, Alaina\.br\Date and Time Signed: 07/18/22 11:15 EDT IntraOperative Documentson 0 07-18-2022 IntraOperative Documents [id number]#1. 00CD:127 [facility] Message from Medicareon Message from Medicare [id number]#1. 00CD:127 [facility] Message from Medicare [id number]#1.0 0CD:127 [facility] Monitor Recordon 07-18-2022 Monitor Record [id number] 60 [id number]#1. 00CD:127 [facility] Monitor Record [id number] 60 [id number]#1. 00CD:127 [facility] Monitor Record [id number] 60 [id number]#1. 00CD:127 [facility] Monitor Record [id number] 60 [id number]#1. 00CD:127 [facility] Progress Note - Pharmacyon 0 07-18-2022 Progress Note - Pharmacy [facility] Progress Note-Physicianon Progress Note-Physician [facility] Comment on above: Result Comment: Elec tronically Signed By: Vijaya SANDOVAL\.br\Date and Time Signed: 07/18/22 13:34 EDT\.br\Electronically Co-Signed By: Pedro ARAUZ MD\.br\Date and Time Co-Signed: 07/18/22 16:54 EDT Progress Note-Physician Normal [facility] Comment on above: Result Comment: Elec tronically Signed By: Sarah Torres NP\.br\Date and Time Signed: 07/17/22 18:08 EDT\.br\Electronically Co-Signed By: Vane Miller MD\.br\Date and Time Co-Signed: 07/18/22 13:58 EDT Progress Note-Physician Normal [facility] Comment on above: Result Comment: Elec tronically Signed By: Vane Miller MD\.br\Date and Time Signed: 07/18/22 13:15 EDT Progress Note-Physician Normal [facility] Comment on above: Result Comment: Elec tronically Signed By: Vijaya SANDOVAL\.br\Date and Time Signed: 07/17/22 11:34 EDT\.br\Electronically Co-Signed By: Pedro ARAUZ MD\.br\Date and Time Co-Signed: 07/18/22 08:23 EDT Vanco Troughon 07-18-2022 VANCOMYCIN 19 microgram/mL Normal 10-[address] [facility] Comment on above: Order Comment: Pleas e draw one hour prior to next dose at on . Thank you. Performed By: #### 2 453735, 3122918, 4822842, 95662681 ####[facility] [address] [place] [address] eGFRon 07-18-2022 GFR/1.73 sq M.predicted among non-blacks MDRD (S/P/Bld) [Vol rate/Area] 5 mL/min/1.73 m2 Low >=59 [facility] Comment on above: Order Comment: Order added by Discern Expert. 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 Kidney failure is indicated at less than 15 mL/min/1.73m2. Performed By: #### 2 085605, 6096681, 4758783, 64961263 ####[facility] [address] [place] [address] BMPon 07-17-2022 Creatinine [Mass/Vol] 8.0 mg/dL Abnormal 0.5-1.3 [facility] Comment on above: Result Comment: Crit ical Result verified by repeat analysis\Critical Result S_CREA:8.00 Called to SILVIO ARZOLA AT 3S by MARC ROSALES And Read Back For Confirmation at: 07/17/2022 09:09:10\Result S_CREA:8.00 Called to SILVIO ARZOLA AT 3S by MARC ROSALES And Read Back For Confirmation at: 07/17/2022 09:09:10 Performed By: #### 1 2736639, 8666350 ####[facility] [address] [place] [address] Urea nitrogen [Mass/Vol] 23 mg/dL High 5-21 [facility] Comment on above: Performed By: #### 1 7396301, 0472335 ####[facility] [address] [place] [address] Urea nitrogen/Creatinine [Mass ratio] 3 No Units Low 10-20 [facility] Comment on above: Performed By: #### 1 2184057, 8213826 ####[facility] [address] [place] [address] Anion gap [Moles/Vol] 14 mmol/L Normal 6-16 [facility] Comment on above: Performed By: #### 1 6970333, 4395054 ####[facility] [address] [place] [address] Calcium [Mass/Vol] 7.8 mg/dL Low 8.9-11.1 [facility] Comment on above: Performed By: #### 1 2260633, 2598290 ####[facility] [address] [place] [address] Chloride [Moles/Vol] 100 mmol/L Low 101-111 [facility] Comment on above: Performed By: #### 1 5452836, 5423645 ####[facility] [address] [place] [address] CO2 [Moles/Vol] 27 mmol/L Normal 21-[address] [facility] Comment on above: Performed By: #### 1 6165934, 0950027 ####[facility] [address] [place] [address] Glucose [Mass/Vol] 195 mg/dL Normal 55-199 [facility] Comment on above: Result Comment: If t his glucose result represents a fasting glucose, interpretation should refer to the following reference range: 55-99 mg/dL Performed By: #### 1 9065794, 3621045 ####[facility] [address] [place] [address] Potassium [Moles/Vol] 4.1 mmol/L Normal 3.5-5.3 [facility] Comment on above: Performed By: #### 1 9730703, 3126924 ####[facility] [address] [place] [address] Sodium [Moles/Vol] 137 mmol/L Normal 135-145 [facility] Comment on above: Performed By: #### 1 9051603, 6148498 ####[facility] [address] [place] [address] Capillary Glucose POCon 06-0 Glucose [Mass/Vol] 243 mg/dL High 55-99 [facility] Comment on above: Result Comment: Ambrocio ELIAS Performed By: #### 2 01802493 ####[facility] [address] [address] Glucose [Mass/Vol] 327 mg/dL High 55-99 [facility] Comment on above: Result Comment: Ambrocio ELIAS Performed By: #### 2 34512464 ####[facility] [address] [facility], [place] [address] Glucose [Mass/Vol] 290 mg/dL High 55-99 [facility] Comment on above: Result Comment: Ambrocio ELIAS Performed By: #### 2 15962320 ####[facility] [address] [place] [address] Glucose [Mass/Vol] 188 mg/dL High 55-99 [facility] Comment on above: Result Comment: Ambrocio ELIAS Performed By: #### 2 35131127 ####[facility] [address] [place] [address] Consent for Anesthesiaon Consent for Anesthesia [id number]#1. 00CD:127 [facility] H&P Updateon 07-17-2022 H&P Update [id number]#1. 00CD:127 [facility] Interdisciplinary Note - Paresh e Manageron 07-17-2022 Interdisciplinary Note - Carpet Floor Layer Apprentice [facility] Comment on above: Result Comment: Elec tronically Signed By: Sarah Tena\.br\Date and Time Signed: 07/17/22 11:30 EDT IntraOperative Documentson 0 07-17-2022 IntraOperative Documents [id number]#1. 00CD:127 [facility] Main OR Intraoperative Recor don 07-17-2022 Main OR Intraoperative Record [facility] Monitor Recordon 07-17-2022 Monitor Record [id number]#1. 00CD:127 Normal [facility] Monitor Record [id number] 60 [id number]#1. 00CD:127 [facility] Operative Reporton Operative Report [facility] Comment on above: Result Comment: Elec tronically Signed By: Dorian FISH, Evelyn Brownlee\Date and Time Signed: 07/17/22 13:42 EDT Progress Note-Physicianon Progress Note-Physician [facility] Comment on above: Result Comment: Elec tronically Signed By: Gino Feliz Jr, DO\.br\Date and Time Signed: 07/17/22 17:48 EDT Progress Note-Physician Normal [facility] Comment on above: Result Comment: Elec tronically Signed By: Alfredo Acosta M.D.br\Date and Time Signed: 07/17/22 14:03 EDT eGFRon 07-17-2022 GFR/1.73 sq M.predicted among non-blacks MDRD (S/P/Bld) [Vol rate/Area] 7 mL/min/1.73 m2 Low >=59 [facility] Comment on above: Order Comment: Order added by Discern Expert. 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 Kidney failure is indicated at less than 15 mL/min/1.73m2. Performed By: #### 1 [id number], [id number] ####[facility] [address] [place] [address] BMPon 07-16-2022 Creatinine [Mass/Vol] 11.6 mg/dL Abnormal 0.5-1.3 [facility] Comment on above: Result Comment: Crit ical Result verified by previous result\Critical Result S_CREA:11.60 Called to SILVIO ARZOLA AT 3S by CATHY LERNER And Read Back For Confirmation at: 07/16/2022 11:03:55\Result S_CREA:11.60 Called to SILVIO ARZOLA AT 3S by CATHY LERNER And Read Back For Confirmation at: 07/16/2022 11:03:55 Performed By: #### 1 2021824, 9256039, 7495706, 38273802 ####[facility] [address] [place] [address] Anion gap [Moles/Vol] 17 mmol/L High 6-16 [facility] Comment on above: Performed By: #### 1 5261586, 4218982, 6241973, 37911830 ####[facility] [address] [place] [address] Calcium [Mass/Vol] 8.4 mg/dL Low 8.9-11.1 [facility] Comment on above: Performed By: #### 1 2035008, 4440007, 4428633, 75342345 ####[facility] [address] [place] [address] Chloride [Moles/Vol] 100 mmol/L Low 101-111 [facility] Comment on above: Performed By: #### 1 9403862, 9349257, 7225525, 63482323 ####[facility] [address] [place] [address] CO2 [Moles/Vol] 24 mmol/L Normal 21-[address] [facility] Comment on above: Performed By: #### 1 9719271, 9075977, 6643977, 45805024 ####[facility] [address] [place] [address] Glucose [Mass/Vol] 293 mg/dL High 55-199 [facility] Comment on above: Result Comment: If t his glucose result represents a fasting glucose, interpretation should refer to the following reference range: 55-99 mg/dL Performed By: #### 1 3141745, 3917181, 1690535, 01141990 ####[facility] [address] [place] [address] Potassium [Moles/Vol] 4.0 mmol/L Normal 3.5-5.3 [facility] Comment on above: Performed By: #### 1 4043007, 9661190, 8654903, 87933767 ####[facility] [address] [place] [address] Sodium [Moles/Vol] 137 mmol/L Normal 135-145 [facility] Comment on above: Performed By: #### 1 1616286, 6043280, 5050830, 53341919 ####[facility] [address] [place] [address] Urea nitrogen [Mass/Vol] 47 mg/dL High 5-21 [facility] Comment on above: Performed By: #### 1 8684415, 7433087, 0716644, 08484999 ####[facility] [address] [place] [address] Urea nitrogen/Creatinine [Mass ratio] 4 No Units Low 10-20 [facility] Comment on above: Performed By: #### 1 1533372, 4423404, 5285431, 54773190 ####[facility] [address] [place] [address] Capillary Glucose POCon Glucose [Mass/Vol] 207 mg/dL High [facility] Comment on above: Result Comment: Ambrocio vargas RN/ Performed By: #### 2 24089566 ####[facility] [address] [place] [address] Glucose [Mass/Vol] 167 mg/dL High [facility] Comment on above: Result Comment: Ambrocio vargas RN/ Performed By: #### 2 10348224 ####[facility] [address] [place] [address] Glucose [Mass/Vol] 266 mg/dL High [facility] Comment on above: Result Comment: Ambrocio ELIAS Performed By: #### 2 70420917 ####[facility] [address] [place] [address] Glucose [Mass/Vol] 309 mg/dL High [facility] Comment on above: Result Comment: Danielle joe Meter Performed By: #### 2 81025796 ####[facility] [address] [place] [address] Consent for Procedure/Surger yon 07-16-2022 Consent for Procedure/Surgery [id number]#1.0 0CD:127 Normal [facility] Electrocardiogram - 12 leado n 07-16-2022 Electrocardiogram - 12 lead [id number]#1.0 0CD:127 Normal [facility] Hct & Hgbon 07-16-2022 Hematocrit (Bld) [Volume fraction] 23.9 % Low 37.7-49.0 [facility] Comment on above: Performed By: #### 1 3937453, 0831012, 9825490, 41296194 ####[facility] [address] [place] [address] Hemoglobin (Bld) [Mass/Vol] 8.2 g/dL Low 13.5-17.5 [facility] Comment on above: Performed By: #### 1 8428808, 5144415, 3342653, 68707685 ####[facility] [address] [place] [address] Interdisciplinary Note - Paresh e Manageron 07-16-2022 Interdisciplinary Note - Carpet Floor Layer Apprentice CRM to room and patient is down in OR with Vascular Patient is here for an infection as an inpatient. Patient was diagnosed with LUE AVF infection and thrombosis Patient was accepted to [facility] and plan will be to DC there once medically ready [facility] Comment on above: Result Comment: Elec tronically Signed By: Tia White\.br\Date and Time Signed: 07/16/22 12:44 EDT Main OR PACU I Recordon Main OR PACU I Record [facility] Monitor Recordon 07-16-2022 Monitor Record [id number]#1. 00CD:127 [facility] Monitor Record [id number]#1. 00CD:127 [facility] Monitor Record [id number]#1. 00CD:127 [facility] Monitor Record [id number]#1. 00CD:127 [facility] Progress Note - Pharmacyon 0 07-16-2022 Progress Note - Pharmacy [facility] Progress Note-Nurseon 2022 Progress Note-Nurse [id number]#1. 00CD:127 [facility] Progress Note-Physicianon Progress Note-Physician [facility] Comment on above: Result Comment: Elec tronically Signed By: Gino Feliz Jr, DO\.br\Date and Time Signed: 07/16/22 14:49 EDT Progress Note-Physician Normal [facility] Comment on above: Result Comment: Elec tronically Signed By: Vijaya SANDOVAL\.br\Date and Time Signed: 07/16/22 11:35 EDT\.br\Electronically Co-Signed By: Pedro ARAUZ MD\.br\Date and Time Co-Signed: 07/16/22 12:52 EDT Progress Note-Physician Normal [facility] Comment on above: Result Comment: Elec tronically Signed By: Vane Miller MD\.br\Date and Time Signed: 07/16/22 12:12 EDT Vanco Troughon 07-16-2022 VANCOMYCIN 27 microgram/mL Abnormal 10-[address] [facility] Comment on above: Result Comment: Crit ical Result verified by repeat analysis\Critical Result S_VANC_T:27.0 Called to SILVIO ARZOLA AT 3S by CATHY LERNER And Read Back For Confirmation at: 07/16/2022 07:34:50 Performed By: #### 1 3767722, 2672680, 1634936, 06471155 ####[facility] [address] [place] [address] eGFRon 07-16-2022 GFR/1.73 sq M.predicted among non-blacks MDRD (S/P/Bld) [Vol rate/Area] 4 mL/min/1.73 m2 Low >=59 [facility] Comment on above: Order Comment: Order added by Discern Expert. 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 Kidney failure is indicated at less than 15 mL/min/1.73m2. Performed By: #### 1 9184334, 1431717, 8009710, 95271028 ####[facility] [address] [place] [address] Auto Diffon 07-15-2022 Basophils/100 WBC (Bld) 1.2 % Normal 0.0-2.0 [facility] Comment on above: Order Comment: Order Added by Discern Expert. Performed By: #### 1 4730691, 2721521, 1840584, 9131342 ####[address] [place] [address] Basophils/Leukocytes Auto (Bld) [Pure # fraction] 0.1 E9/L Normal 0.0-0.2 [facility] Comment on above: Order Comment: Order Added by Discern Expert. Performed By: #### 1 0337983, 1064078, 9972521, 8165096 ####[address] [place] [address] Eosinophils/100 WBC (Bld) 3.4 % Normal 0.0-8.0 [facility] Comment on above: Order Comment: Order Added by Cayla Expert. Performed By: #### 1 6266236, 5047168, 6464560, 7967516 ####[address] [address] Eosinophils/Leukocyt es Auto (Bld) [Pure # fraction] 0.2 E9/L Normal 0.0-0.5 [facility] Comment on above: Order Comment: Order Added by Cayla Expert. Performed By: #### 1 0979939, 5122873, 0311450, 3199497 ####[address] [address] Lymphocytes/100 WBC (Bld) 11.3 % Low 14.0-50.0 [facility] Comment on above: Order Comment: Order Added by Discern Expert. Performed By: #### 1 0716273, 3111036, 9363068, 8982384 ####[address] [place] [address] Lymphocytes/Leukocyt es Auto (Bld) [Pure # fraction] 0.6 E9/L Low 1.0-4.0 [facility] Comment on above: Order Comment: Order Added by Cayla Expert. Performed By: #### 1 4367578, 9079638, 1611334, 9600446 ####[facility] [address] [place] [address] Monocytes/100 WBC (Bld) 16.4 % High 4.0-14.0 [facility] Comment on above: Order Comment: Order Added by Discern Expert. Performed By: #### 1 4316030, 8171933, 3366853, 5307711 ####[address] [place] [address] Monocytes/Leukocytes Auto (Bld) [Pure # fraction] 0.9 E9/L Normal 0.2-1.0 [facility] Comment on above: Order Comment: Order Added by Discern Expert. Performed By: #### 1 3616075, 6094333, 8982636, 1649688 ####[address] [address] Neutrophils/100 WBC (Bld) 67.7 % Normal 36.0-75.0 [facility] Comment on above: Order Comment: Order Added by Discern Expert. Performed By: #### 1 2827553, 0161389, 4020423, 7323578 ####[address] [address] Neutrophils/Leukocyt es Auto (Bld) [Pure # fraction] 3.7 E9/L Normal 2.0-7.5 [facility] Comment on above: Order Comment: Order Added by Discern Expert. Performed By: #### 1 2338870, 0870067, 7773737, 6983571 ####[address] [address] CBC w/ Auto Diffon 3 Erythrocyte distribution width (RBC) [Ratio] 16.7 % High 10.9-14.2 [facility] Comment on above: Performed By: #### 1 8342167, 1206069, 7686902, 4873668 ####[address] [address] Hematocrit (Bld) [Volume fraction] 24.3 % Low 37.7-49.0 [facility] Comment on above: Performed By: #### 1 8973130, 6951014, 2915197, 0862616 ####[address] [place] [address] Hemoglobin (Bld) [Mass/Vol] 8.0 g/dL Low 13.5-17.5 [facility] Comment on above: Performed By: #### 1 7595149, 8975380, 3579316, 7228785 ####[address] [address] MCH (RBC) [Entitic mass] 29.7 pg Normal 27.0-34.0 [facility] Comment on above: Performed By: #### 1 9252664, 2928938, 4205614, 3618553 ####[address] [address] MCHC (RBC) [Mass/Vol] 32.9 g/dL Normal 31.4-36.0 [facility] Comment on above: Performed By: #### 1 7495130, 4501147, 9512342, 5782132 ####[address] [address] MCV (RBC) [Entitic vol] 90.1 fL Normal 80.0-100.0 [facility] Comment on above: Performed By: #### 1 2657296, 3124909, 1434784, 9137671 ####[address] [address] Platelet mean volume (Bld) [Entitic vol] 7.9 fL Normal 6.4-10.8 [facility] Comment on above: Performed By: #### 1 0663534, 0636586, 9179926, 2519737 ####[address] [address] Platelets (Bld) [#/Vol] 219.0 E9/L Normal 150.0-500.0 [facility] Comment on above: Performed By: #### 1 4934725, 4402968, 0497460, 1161037 ####[address] [address] RBC (Bld) [#/Vol] 2.7 E12/L Low 4.3-5.9 [facility] Comment on above: Performed By: #### 1 7320111, 3342450, 4576713, 5889400 ####[facility] [address] [place] [address] WBC corrected for nucl RBC Auto (Bld) [#/Vol] 5.5 E9/L Normal 4.0-11.0 [facility] Comment on above: Performed By: #### 1 9543347, 5105152, 2359174, 7585662 ####[facility] [address] [place] [address] CMPon 07-15-2022 Creatinine [Mass/Vol] 10.0 mg/dL Abnormal 0.5-1.3 [facility] Comment on above: Result Comment: Crit ical Result S_CREA:10.00 Called to HIRO WILCOXING AT 3S by CATHY YANN And Read Back For Confirmation at: 07/15/2022 10:15:30\Result S_CREA:10.00 Called to HIRO WILCOXING AT 3S by CATHY LERNER And Read Back For Confirmation at: 07/15/2022 10:15:30\ATTEMPTED TO CALL RESULT X2\Critical Result verified by previous result Performed By: #### 1 6941748, 5140484, 5120575, 3296573 ####[facility] [address] [place] [address] Albumin [Mass/Vol] 2.2 g/dL Low 3.3-5.0 [facility] Comment on above: Performed By: #### 1 5418890, 5688452, 4036477, 4652038 ####[facility] [address] [place] [address] Albumin/Globulin (S) [Mass conc ratio] 0.7 Low 1.1-2.2 [facility] Comment on above: Performed By: #### 1 2606898, 2398217, 4949064, 0520286 ####[address] [place] [address] ALP [Catalytic activity/Vol] 39 Int._Unit/L Normal 21-98 [facility] Comment on above: Performed By: #### 1 3368537, 5591001, 3074837, 6819585 ####[facility] [address] [place] [address] ALT No additional P-5'-P [Catalytic activity/Vol] 17 Int._Unit/L Normal 6-46 [facility] Comment on above: Performed By: #### 1 4915131, 2797361, 5311456, 5229507 ####[facility] [address] [place] [address] Anion gap [Moles/Vol] 15 mmol/L Normal 6-16 [facility] Comment on above: Performed By: #### 1 7889948, 5483317, 9346949, 6984531 ####[address] [place] [address] AST [Catalytic activity/Vol] 47 Int._Unit/L High 5-43 [facility] Comment on above: Performed By: #### 1 3853994, 6579334, 5735035, 9465887 ####[address] [place] [address] Bilirubin [Mass/Vol] 0.8 mg/dL Normal 0.0-1.1 [facility] Comment on above: Performed By: #### 1 0434206, 7776635, 0906840, 8142036 ####[address] [place] [address] Calcium [Mass/Vol] 8.6 mg/dL Low 8.9-11.1 [facility] Comment on above: Performed By: #### 1 1949490, 9707349, 9328233, 9041506 ####[facility] [address] [place] [address] Chloride [Moles/Vol] 100 mmol/L Low 101-111 [facility] Comment on above: Performed By: #### 1 6559007, 2386082, 7945738, 3358985 ####[facility] [address] [place] [address] CO2 [Moles/Vol] 24 mmol/L Normal 21-[address] [facility] Comment on above: Performed By: #### 1 7815471, 4622402, 5997760, 2179784 ####[facility] [address] [place] [address] Globulin (S) [Mass/Vol] 3.2 g/dL Normal 1.4-4.0 [facility] Comment on above: Performed By: #### 1 1510908, 3199612, 0768595, 1404816 ####[facility] [address] [place] [address] Glucose [Mass/Vol] 202 mg/dL High 55-199 [facility] Comment on above: Result Comment: If t his glucose result represents a fasting glucose, interpretation should refer to the following reference range: 55-99 mg/dL Performed By: #### 1 1987561, 4151184, 1338285, 0004462 ####[facility] [address] [place] [address] Potassium [Moles/Vol] 3.7 mmol/L Normal 3.5-5.3 [facility] Comment on above: Performed By: #### 1 3120572, 2213114, 4830152, 3486347 ####[facility] [address] [place] [address] Protein [Mass/Vol] 5.4 g/dL Low 6.0-7.8 [facility] Comment on above: Performed By: #### 1 9643904, 7838867, 1946510, 6993661 ####[facility] [address] [place] [address] Sodium [Moles/Vol] 135 mmol/L Normal 135-145 [facility] Comment on above: Performed By: #### 1 4350204, 5249971, 9534254, 0738733 ####[facility] [address] [place] [address] Urea nitrogen [Mass/Vol] 42 mg/dL High 5-21 [facility] Comment on above: Performed By: #### 1 0535397, 2544727, 9261856, 3359926 ####[facility] [address] [place] [address] Urea nitrogen/Creatinine [Mass ratio] 4 No Units Low 10-20 [facility] Comment on above: Performed By: #### 1 0538422, 4417720, 0210202, 7702766 ####[facility] [address] [place] [address] Capillary Glucose POCon 06-0 Glucose [Mass/Vol] 323 mg/dL High 55-99 [facility] Comment on above: Result Comment: Ambrocio ELIAS Performed By: #### 2 30835671 ####[address] [address] Glucose [Mass/Vol] 297 mg/dL High 55-99 [facility] Comment on above: Performed By: #### 2 26658746 ####[address] [address] Glucose [Mass/Vol] 244 mg/dL High 55-99 [facility] Comment on above: Result Comment: Ambrocio ELIAS Performed By: #### 2 87388128 ####[address] [place] [address] Glucose [Mass/Vol] 317 mg/dL High 55-99 [facility] Comment on above: Result Comment: Ambrocio ELIAS Performed By: #### 2 10172924 ####[facility] [address] [place] [address] Glucose [Mass/Vol] 171 mg/dL High 55-99 [facility] Comment on above: Result Comment: Ambrocio ELIAS Performed By: #### 2 31164824 ####[facility] [address] [place] [address] Hep Bs Agon 07-15-2022 HBV surface Ag IA Ql Negative Invalid Interpretation Code Negative [facility] Comment on above: Result Comment: Perf ormed at: [facility] [address] [id number] PhD Jany Aparicio Performed By: #### 1 8769020, 8195641, 9319025, 6810979, 0819563, 2197905 ####[facility] [address] [place] [address] Interdisciplinary Note - Paresh e Manageron 07-15-2022 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 Pt will see Vascular and ID this week. Ant dc TBD. 3MN was met today. CRM to follow. Normal [facility] Comment on above: Result Comment: Elec tronically Signed By: Sarah Tena\.br\Date and Time Signed: 07/15/22 11:25 EDT Monitor Recordon 07-15-2022 Monitor Record [id number]#1. 00CD:127 Normal [facility] Monitor Record [id number]#1. 00CD:127 Normal [facility] Monitor Record [id number]#1. 00CD:127 Normal [facility] Monitor Record [id number]#1. 00CD:127 Normal [facility] eGFRon 07-15-2022 GFR/1.73 sq M.predicted among non-blacks MDRD (S/P/Bld) [Vol rate/Area] 5 mL/min/1.73 m2 Low >=59 [facility] Comment on above: Order Comment: Order added by Discern Expert. 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 Kidney failure is indicated at less than 15 mL/min/1.73m2. Performed By: #### 1 2552032, 0770800, 0370823, 6333806 ####[facility] [address] [place] [address] Auto Diffon 07-14-2022 Basophils/100 WBC (Bld) 0.7 % Normal 0.0-2.0 [facility] Comment on above: Order Comment: Order Added by Cayla Expert. Performed By: #### 1 2069819, 2588880, 1444377, 0182393, 1972470, 6367608 ####[address] [address] Basophils/Leukocytes Auto (Bld) [Pure # fraction] 0.1 E9/L Normal 0.0-0.2 [facility] Comment on above: Order Comment: Order Added by Discern Expert. Performed By: #### 1 5907357, 5561650, 9666194, 1855988, 8030132, 1045228 ####[address] [address] Eosinophils/100 WBC (Bld) 1.1 % Normal 0.0-8.0 [facility] Comment on above: Order Comment: Order Added by Cayla Expert. Performed By: #### 1 6135747, 4031425, 5480928, 9639826, 0873416, 3737247 ####[address] [address] Eosinophils/Leukocyt es Auto (Bld) [Pure # fraction] 0.1 E9/L Normal 0.0-0.5 [facility] Comment on above: Order Comment: Order Added by Cayla Expert. Performed By: #### 1 7724979, 0039663, 2609908, 1278676, 2355981, 0004788 ####[address] [address] Lymphocytes/100 WBC (Bld) 1.7 % Low 14.0-50.0 [facility] Comment on above: Order Comment: Order Added by Cayla Expert. Performed By: #### 1 4472827, 3491889, 0394278, 7006780, 8746804, 8126477 ####[address] [address] Lymphocytes/Leukocyt es Auto (Bld) [Pure # fraction] 0.2 E9/L Low 1.0-4.0 [facility] Comment on above: Order Comment: Order Added by Discern Expert. Performed By: #### 1 7363223, 6387125, 9190753, 0238260, 9699473, 3329542 ####[address] [place] [address] Monocytes/100 WBC (Bld) 6.3 % Normal 4.0-14.0 [facility] Comment on above: Order Comment: Order Added by Discern Expert. Performed By: #### 1 6849798, 1460904, 8904326, 6920142, 5502589, 4211404 ####[address] [place] [address] Monocytes/Leukocytes Auto (Bld) [Pure # fraction] 0.7 E9/L Normal 0.2-1.0 [facility] Comment on above: Order Comment: Order Added by Cayla Expert. Performed By: #### 1 2527327, 1081138, 1995264, 6613466, 1830330, 2914764 ####[address] [address] Neutrophils/100 WBC (Bld) 90.2 % High 36.0-75.0 [facility] Comment on above: Order Comment: Order Added by Cayla Expert. Performed By: #### 1 9802161, 6114788, 6072162, 6433809, 0123566, 3439908 ####[address] [address] Neutrophils/Leukocyt es Auto (Bld) [Pure # fraction] 9.9 E9/L High 2.0-7.5 [facility] Comment on above: Order Comment: Order Added by Cayla Expert. Performed By: #### 1 4520888, 1439803, 2178079, 4876108, 8279249, 6486433 ####[address] [place] [address] BMPon 07-14-2022 Creatinine [Mass/Vol] 7.2 mg/dL High 0.5-1.3 [facility] Comment on above: Performed By: #### 1 9922107, 9208296, 5901884, 2819063, 7664949, 7375019 ####[facility] [address] [facility] [place] [address] Anion gap [Moles/Vol] 15 mmol/L Normal 6-16 [facility] Comment on above: Performed By: #### 1 1621930, 7549800, 1087191, 4130811, 9696094, 4573146 ####[facility] [address] [place] [address] Calcium [Mass/Vol] 8.2 mg/dL Low 8.9-11.1 [facility] Comment on above: Performed By: #### 1 5966766, 2992896, 7555056, 6230736, 9009703, 4469404 ####[facility] [address] [place] [address] Chloride [Moles/Vol] 98 mmol/L Low 101-111 [facility] Comment on above: Performed By: #### 1 2443554, 7912244, 8191014, 3617304, 2720067, 3994337 ####[facility] [address] [place] [address] CO2 [Moles/Vol] 24 mmol/L Normal 21-[address] [facility] Comment on above: Performed By: #### 1 2369048, 7232346, 7990039, 8733032, 6590198, 1496100 ####[facility] [address] [place] [address] Glucose [Mass/Vol] 190 mg/dL Normal 55-199 [facility] Comment on above: Result Comment: If t his glucose result represents a fasting glucose, interpretation should refer to the following reference range: 55-99 mg/dL Performed By: #### 1 0236228, 7016470, 9594333, 7732910, 9830017, 1035890 ####[facility] [address] [place] [address] Potassium [Moles/Vol] 3.7 mmol/L Normal 3.5-5.3 [facility] Comment on above: Performed By: #### 1 0009495, 9053325, 3823165, 9173977, 9230061, [id number] ####[facility] [address] [place] [address] Sodium [Moles/Vol] 133 mmol/L Low 135-145 [facility] Comment on above: Performed By: #### 1 3180213, 2595350, 9767466, 5634720, 7878490, 5512712 ####[facility] [address] [place] [address] Urea nitrogen [Mass/Vol] 26 mg/dL High 5-21 [facility] Comment on above: Performed By: #### 1 7885474, 7868038, 3374135, 6316945, 6290504, 7619690 ####[facility] [address] [place] [address] Urea nitrogen/Creatinine [Mass ratio] 4 No Units Low 10-20 [facility] Comment on above: Performed By: #### 1 9024887, 1161374, 1878467, 0886760, 0467434, 9096737 ####[facility] [address] [place] [address] C Woundon 07-14-2022 Wound Culture Normal [facility] Comment on above: Performed By: #### 2 661340 ####[address] [place] [address] CBC w/ Auto Diffon Erythrocyte distribution width (RBC) [Ratio] 17.1 % High 10.9-14.2 [facility] Comment on above: Performed By: #### 1 7618949, 1676320, 6112181, 0278032, 2338752, 0190423 ####[facility] [address] [place] [address] Hematocrit (Bld) [Volume fraction] 25.5 % Low 37.7-49.0 [facility] Comment on above: Performed By: #### 1 1249092, 9476027, 8799130, 2444850, 1631731, 4977150 ####[facility] [address] [place], [place] [address] Hemoglobin (Bld) [Mass/Vol] 8.5 g/dL Low 13.5-17.5 [facility] Comment on above: Performed By: #### 1 0126619, 9962792, 3709905, 3420692, 7717470, 2832143 ####[address] [address] MCH (RBC) [Entitic mass] 29.6 pg Normal 27.0-34.0 [facility] Comment on above: Performed By: #### 1 4779689, 1834063, 4702790, 7245569, 3606754, 5985238 ####[place] [address] MCHC (RBC) [Mass/Vol] 33.2 g/dL Normal 31.4-36.0 [facility] Comment on above: Performed By: #### 1 4429511, 6748648, 1852606, 8912032, 2547111, 4847853 ####[place] [address] MCV (RBC) [Entitic vol] 89.4 fL Normal 80.0-100.0 [facility] Comment on above: Performed By: #### 1 0009666, 1274435, 5589547, 4237841, 2620521, 4664135 ####[place] [address] Platelet mean volume (Bld) [Entitic vol] 7.6 fL Normal 6.4-10.8 [facility] Comment on above: Performed By: #### 1 5399222, 2908538, 0526275, 8594886, 6079336, 2984535 ####[address] [address] Platelets (Bld) [#/Vol] 219.0 E9/L Normal 150.0-500.0 [facility] Comment on above: Performed By: #### 1 9450549, 1470890, 9764776, 3810300, 8563023, 4618021 ####[facility] [address] [place] [address] RBC (Bld) [#/Vol] 2.8 E12/L Low 4.3-5.9 [facility] Comment on above: Performed By: #### 1 4476497, 6635907, 2286905, 0860047, 9243882, 3306310 ####[facility] [address] [place] [address] WBC corrected for nucl RBC Auto (Bld) [#/Vol] 11.0 E9/L Normal 4.0-11.0 [facility] Comment on above: Performed By: #### 1 2953401, 2881205, 3461344, 0510209, 7436630, 0407763 ####[facility] [address] [place] [address] Capillary Glucose POCon Glucose [Mass/Vol] 233 mg/dL High 55-99 [facility] Comment on above: Performed By: #### 2 82966688 ####[facility] [address] [place] [address] Glucose [Mass/Vol] 144 mg/dL High 55-99 [facility] Comment on above: Result Comment: Ambrocio ELIAS Performed By: #### 2 27143801 ####[facility] [address] [place] [address] Glucose [Mass/Vol] 202 mg/dL High 55-99 [facility] Comment on above: Result Comment: Ambrocio ELIAS Performed By: #### 2 60673819 ####[facility] [address] [place] [address] Glucose [Mass/Vol] 180 mg/dL High 55-99 [facility] Comment on above: Result Comment: Ambrocio ELIAS Performed By: #### 2 73583412 ####[facility] [address] [place] [address] Interdisciplinary Note - Paresh e Manageron 07-14-2022 Interdisciplinary Note - Carpet Floor Layer Apprentice Normal [facility] Comment on above: Result Comment: Elec tronically Signed By: Sarah Tena\.br\Date and Time Signed: 07/14/22 13:10 EDT Lactic Acidon 07-14-2022 Lactate [Mass/Vol] 1.1 mmol/L Normal 0.5-2.2 [facility] Comment on above: Performed By: #### 1 8581217, 8720006, 3206412, 6134381, 0311701, 9942139 ####[facility] [address] [place] [address] Monitor Recordon 07-14-2022 Monitor Record [id number]#1. 00CD:127 Normal [facility] Monitor Record [id number]#1. 00CD:127 Normal [facility] Monitor Record [id number]#1. 00CD:127 Normal [facility] Progress Note-Physicianon Progress Note-Physician Normal [facility] Comment on above: Result Comment: Elec tronically Signed By: Vijaya SANDOVAL\.br\Date and Time Signed: 07/14/22 13:12 EDT\.br\Electronically Co-Signed By: Fuentes Rodriguez MD\.br\Date and Time Co-Signed: 07/14/22 14:51 EDT eGFRon 07-14-2022 GFR/1.73 sq M.predicted among non-blacks MDRD (S/P/Bld) [Vol rate/Area] 8 mL/min/1.73 m2 Low >=59 [facility] Comment on above: Order Comment: Order added by Discern Expert. 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 Kidney failure is indicated at less than 15 mL/min/1.73m2. Performed By: #### 1 9637780, 4829651, 7863902, 3270651, 2540016, 1174934 ####[facility] [address] [place] [address] BMPon 07-13-2022 Creatinine [Mass/Vol] 9.3 mg/dL Abnormal 0.5-1.3 [facility] Comment on above: Result Comment: Crit ical Result verified by repeat analysis\Critical Result S_CREA:9.30 Called to MARYURI STIFINESSE AT 3S by NEDA MACHUCA And Read Back For Confirmation at: 07/13/2022 06:50:42\Result S_CREA:9.30 Called to MARYURI LINDA AT 3S by NEDABASHIR MACHUCA And Read Back For Confirmation at: 07/13/2022 06:50:42 Performed By: #### 1 8936640, 8330333, 9367717 ####[facility] [address] [place] [address] Anion gap [Moles/Vol] 16 mmol/L Normal 6-16 [facility] Comment on above: Performed By: #### 1 3691009, 5293462, 3422400 ####[facility] [address] [place] [address] Calcium [Mass/Vol] 8.9 mg/dL Normal 8.9-11.1 [facility] Comment on above: Performed By: #### 1 3321586, 6219664, 6361969 ####[facility] [address] [place] [address] Chloride [Moles/Vol] 101 mmol/L Normal 101-111 [facility] Comment on above: Performed By: #### 1 8229533, 6889693, 5674670 ####[facility] [address] [place] [address] CO2 [Moles/Vol] 23 mmol/L Normal 21-[address] [facility] Comment on above: Performed By: #### 1 6805151, 8315471, 1265285 ####[facility] [address] [place] [address] Glucose [Mass/Vol] 266 mg/dL High 55-199 [facility] Comment on above: Result Comment: If t his glucose result represents a fasting glucose, interpretation should refer to the following reference range: 55-99 mg/dL Performed By: #### 1 1167548, 2280866, 8061373 ####[facility] [address] [place] [address] Potassium [Moles/Vol] 3.5 mmol/L Normal 3.5-5.3 [facility] Comment on above: Performed By: #### 1 9375070, 4780890, 7407434 ####[facility] [address] [place] [address] Sodium [Moles/Vol] 136 mmol/L Normal 135-145 [facility] Comment on above: Performed By: #### 1 4860087, 1158547, 3569449 ####[facility] [address] [place] [address] Urea nitrogen [Mass/Vol] 31 mg/dL High 5-21 [facility] Comment on above: Performed By: #### 1 5777862, 9993077, 5944675 ####[facility] [address] [place] [address] Urea nitrogen/Creatinine [Mass ratio] 3 No Units Low 10-20 [facility] Comment on above: Performed By: #### 1 3934692, 8564211, 2270782 ####[facility] [address] [place] [address] CRPon 07-13-2022 CRP [Mass/Vol] 8.9 mg/dL High <=1.9 [facility] Comment on above: Performed By: #### 2 801590, 0461114, 9419557 ####[facility] [address] [place] [address] Capillary Glucose POCon 0 Glucose [Mass/Vol] 256 mg/dL High 55-99 [facility] Comment on above: Result Comment: Ambrocio vargas RN/ Performed By: #### 2 20424563 ####[facility] [address] [place] [address] Glucose [Mass/Vol] 268 mg/dL High 55-99 [facility] Comment on above: Performed By: #### 2 46965551 ####[facility] [address] [place] [address] Glucose [Mass/Vol] 247 mg/dL High 55-99 [facility] Comment on above: Result Comment: Ambrocio vargas RN/ Performed By: #### 2 34789153 ####[facility] [address] [place] [address] Glucose [Mass/Vol] 279 mg/dL High 55-99 [facility] Comment on above: Result Comment: Ambrocio vargas RN/ Performed By: #### 2 59810904 ####[facility] [address] [place] [address] Consultation Noteon 07-14-19 Consultation Note Normal [facility] Comment on above: Result Comment: Elec tronically Signed By: Cristino Walker MD\.br\Date and Time Signed: 07/13/22 14:44 EDT Consultation Note Normal [facility] Comment on above: Result Comment: Elec tronically Signed By: Alfredo Acosta M.D\.br\Date and Time Signed: 07/13/22 09:50 EDT Interdisciplinary Note - Paresh e Manageron 07-13-2022 Interdisciplinary Note - Carpet Floor Layer Apprentice Normal [facility] Comment on above: Result Comment: Elec tronically Signed By: Obie TORREZ, Alaina\.br\Date and Time Signed: 07/13/22 11:59 EDT Interdisciplinary Note - Bang singon 07-13-2022 Interdisciplinary Note - Nursing Normal [facility] Lactic Acidon 07-13-2022 Lactate [Mass/Vol] 2.3 mmol/L High 0.5-2.2 [facility] Comment on above: Order Comment: Order added by EKS Rule. (FT_LACTIC_ACID_REFLEX) Adds reflex Lactic Acid 4 hours after initial if result is greater than or equal to 2.0. Performed By: #### 2 540569 ####[facility] [address] [place] [address] Lactate [Mass/Vol] 5.9 mmol/L Abnormal 0.5-2.2 [facility] Comment on above: Result Comment: Crit ical Result verified by repeat analysis\Critical Result S_LAC:5.9Called to STEVE ESTRELLA AT 3S by NEDA MACHUCA And Read Back For Confirmation at: 07/13/2022 12:52:22 Performed By: #### 2 499250, 2992857, 1223908 ####[facility] [address] [place] [address] Monitor Recordon 07-13-2022 Monitor Record [id number]#1. 00CD:127 Normal [facility] Monitor Record [id number]#1. 00CD:127 Normal [facility] Monitor Record [id number]#1. 00CD:127 Normal [facility] Progress Note - Pharmacyon 0 07-13-2022 Progress Note - Pharmacy Normal [facility] Progress Note-Nurseon 2022 Progress Note-Nurse Tx tolerated well, hypotension at beginning of Tx, no other significant issues. 0L removed Pre wt 94 Post wt 95 Normal [facility] Progress Note-Physicianon Progress Note-Physician Normal [facility] Comment on above: Result Comment: Elec tronically Signed By: Nathalie HAAS\.br\Date and Time Signed: 07/13/22 13:50 EDT\.br\Electronically Co-Signed By: Nathalie HAAS\.br\Date and Time Co-Signed: 07/13/22 13:56 EDT\.br\Electronically Co-Signed By: Michael FISH, Fuentes Lemons\.br\Date and Time Co-Signed: 07/13/22 15:20 EDT US Extremity Non-Vascular Li mited Lefton 07-13-2022 US Extremity Non-Vascular Limited Left Normal [facility] Vanco Troughon 07-13-2022 VANCOMYCIN 50 microgram/mL Abnormal 10-[address] [facility] Comment on above: Result Comment: Crit ical Result verified by repeat analysis\Critical Result S_VANC_T:50.0 Called to MARYURI MCKEON AT 3S by NEDA MACHUCA And Read Back For Confirmation at: 07/13/2022 06:49:48 Performed By: #### 1 9019787, 4237197, 4569607 ####[facility] [address] [place] [address] WBCon 07-13-2022 WBC corrected for nucl RBC Auto (Bld) [#/Vol] 23.8 E9/L High 4.0-11.0 [facility] Comment on above: Performed By: #### 2 990249, 4103419, 4626845 ####[address] [place] [address] XR Chest 2 Viewson 3 XR Chest 2 Views Normal [facility] eGFRon 07-13-2022 GFR/1.73 sq M.predicted among non-blacks MDRD (S/P/Bld) [Vol rate/Area] 6 mL/min/1.73 m2 Low >=59 [facility] Comment on above: Order Comment: Order added by Discern Expert. 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 Kidney failure is indicated at less than 15 mL/min/1.73m2. Performed By: #### 1 9111615, 3494562, 8226515 ####[facility] [address] [place] [address] Auto Diffon 07-12-2022 Basophils/100 WBC (Bld) 0.8 % Normal 0.0-2.0 [facility] Comment on above: Order Comment: Order Added by Discern Expert. Performed By: #### 2 588222, 6496161, 1656697, 16631038 ####[facility] [address] [place] [address] Basophils/Leukocytes Auto (Bld) [Pure # fraction] 0.1 E9/L Normal 0.0-0.2 [facility] Comment on above: Order Comment: Order Added by Discern Expert. Performed By: #### 2 614636, 4164814, 9466276, 70898084 ####[address] [address] Eosinophils/100 WBC (Bld) 1.5 % Normal 0.0-8.0 [facility] Comment on above: Order Comment: Order Added by Discern Expert. Performed By: #### 2 342469, 0800365, 2031564, 67674473 ####[address] [address] Eosinophils/Leukocyt es Auto (Bld) [Pure # fraction] 0.1 E9/L Normal 0.0-0.5 [facility] Comment on above: Order Comment: Order Added by Discern Expert. Performed By: #### 2 232879, 1479227, 2693609, 07949115 ####[address] [address] Lymphocytes/100 WBC (Bld) 11.0 % Low 14.0-50.0 [facility] Comment on above: Order Comment: Order Added by Discern Expert. Performed By: #### 2 002329, 5902938, 8149460, 88582578 ####[address] [address] Lymphocytes/Leukocyt es Auto (Bld) [Pure # fraction] 0.9 E9/L Low 1.0-4.0 [facility] Comment on above: Order Comment: Order Added by Discern Expert. Performed By: #### 2 175903, 8009062, 3467647, 93586508 ####[address] [address] Monocytes/100 WBC (Bld) 13.7 % Normal 4.0-14.0 [facility] Comment on above: Order Comment: Order Added by Discern Expert. Performed By: #### 2 893267, 6555034, 0971204, 51750454 ####[address] [address] Monocytes/Leukocytes Auto (Bld) [Pure # fraction] 1.1 E9/L High 0.2-1.0 [facility] Comment on above: Order Comment: Order Added by Discern Expert. Performed By: #### 2 331629, 7723522, 7682571, 86031481 ####[facility] [address] [place] [address] Neutrophils/100 WBC (Bld) 73.0 % Normal 36.0-75.0 [facility] Comment on above: Order Comment: Order Added by Discern Expert. Performed By: #### 2 308755, 2751593, 5625887, 17017272 ####[facility] [address] [place] [address] Neutrophils/Leukocyt es Auto (Bld) [Pure # fraction] 5.9 E9/L Normal 2.0-7.5 [facility] Comment on above: Order Comment: Order Added by Discern Expert. Performed By: #### 2 476362, 7306104, 6061878, 07030381 ####[facility] [address] [place] [address] BMPon 07-12-2022 Creatinine [Mass/Vol] 7.6 mg/dL Abnormal 0.5-1.3 [facility] Comment on above: Result Comment: Crit ical Result verified by previous result\Critical Result verified by repeat analysis\Critical Result S_CREA:7.60 Called to JOHANNE BUNCH AT 3N by NOEL ORNELAS And Read Back For Confirmation at: 07/12/2022 16:57:45 Performed By: #### 2 149326, 5350142, 3010961, 00580956 ####[facility] [address] [place] [address] Urea nitrogen [Mass/Vol] 26 mg/dL High 5-21 [facility] Comment on above: Performed By: #### 2 942236, 8339251, 0017401, 95415357 ####[facility] [address] [place] [address] Urea nitrogen/Creatinine [Mass ratio] 3 No Units Low 10-20 [facility] Comment on above: Performed By: #### 2 330995, 7953719, 2462499, 81538704 ####[facility] [address] [place] [address] Anion gap [Moles/Vol] 15 mmol/L Normal 6-16 [facility] Comment on above: Performed By: #### 2 682127, 7336241, 0223337, 13624227 ####[facility] [address] [place] [address] Calcium [Mass/Vol] 9.2 mg/dL Normal 8.9-11.1 [facility] Comment on above: Performed By: #### 2 559832, 7614771, 2705506, 79396769 ####[facility] [address] [place] [address] Chloride [Moles/Vol] 98 mmol/L Low 101-111 [facility] Comment on above: Performed By: #### 2 644244, 8637168, 3996879, 64199381 ####[facility] [address] [place] [address] CO2 [Moles/Vol] 25 mmol/L Normal 21-[address] [facility] Comment on above: Performed By: #### 2 600195, 6415671, 8504256, 48729383 ####[facility] [address] [place] [address] Glucose [Mass/Vol] 203 mg/dL High 55-199 [facility] Comment on above: Result Comment: If t his glucose result represents a fasting glucose, interpretation should refer to the following reference range: 55-99 mg/dL Performed By: #### 2 796026, 3367757, 5054671, 91935945 ####[facility] [address] [place] [address] Potassium [Moles/Vol] 4.2 mmol/L Normal 3.5-5.3 [facility] Comment on above: Performed By: #### 2 535356, 1449859, 4620610, 32839029 ####[facility] [address] [place] [address] Sodium [Moles/Vol] 134 mmol/L Low 135-145 [facility] Comment on above: Performed By: #### 2 656557, 8794217, 2222712, 07162150 ####[address] [place] [address] CBC w/ Auto Diffon Erythrocyte distribution width (RBC) [Ratio] 16.8 % High 10.9-14.2 [facility] Comment on above: Performed By: #### 2 959064, 3193472, 2487843, 67354846 ####[address] [place] [address] Hematocrit (Bld) [Volume fraction] 28.7 % Low 37.7-49.0 [facility] Comment on above: Performed By: #### 2 829780, 4901570, 1912230, 84956797 ####[address] [address] Hemoglobin (Bld) [Mass/Vol] 9.5 g/dL Low 13.5-17.5 [facility] Comment on above: Performed By: #### 2 301796, 2162190, 5133365, 56282709 ####[address] [address] MCH (RBC) [Entitic mass] 29.6 pg Normal 27.0-34.0 [facility] Comment on above: Performed By: #### 2 464218, 1781698, 4155583, 34943310 ####[address] [address] MCHC (RBC) [Mass/Vol] 33.1 g/dL Normal 31.4-36.0 [facility] Comment on above: Performed By: #### 2 398817, 9818381, 1931777, 20148392 ####[address] [address] MCV (RBC) [Entitic vol] 89.5 fL Normal 80.0-100.0 [facility] Comment on above: Performed By: #### 2 557185, 2469267, 3467301, 37362878 ####[address] [address] Platelet mean volume (Bld) [Entitic vol] 7.4 fL Normal 6.4-10.8 [facility] Comment on above: Performed By: #### 2 213409, 1684388, 1535629, 18256699 ####[address] [address] Platelets (Bld) [#/Vol] 284.0 E9/L Normal 150.0-500.0 [facility] Comment on above: Performed By: #### 2 219864, 6051649, 8117967, 43644784 ####[address] [address] RBC (Bld) [#/Vol] 3.2 E12/L Low 4.3-5.9 [facility] Comment on above: Performed By: #### 2 658670, 5555384, 4225448, 36039626 ####[address] [address] WBC corrected for nucl RBC Auto (Bld) [#/Vol] 8.1 E9/L Normal 4.0-11.0 [facility] Comment on above: Performed By: #### 2 960056, 1437333, 1988141, 87004047 ####[address] [address] Capillary Glucose POCon 06-0 -2022 Glucose [Mass/Vol] 287 mg/dL High 55-99 [facility] Comment on above: Result Comment: Ambrocio ELIAS Performed By: #### 2 19169233 ####[address] [place] [address] Glucose [Mass/Vol] 191 mg/dL High 55-99 [facility] Comment on above: Result Comment: Ambrocio ELIAS Performed By: #### 2 16237919 ####[facility] [address] [place] [address] Consent for Treatmenton 06-0 Consent for Treatment [id number]#1.0 0CD:127 Normal [facility] Consent for Treatment [id number]#1.0 0CD:127 Normal [facility] Heart and Vascular Office/Cl inic Noteon 07-12-2022 Heart and Vascular Office/Clinic Note Normal [facility] Comment on above: Result Comment: Elec tronically Signed By: Dorian FISH, Evelyn Lopez\.br\Date and Time Signed: 07/12/22 13:58 EDT Progress Note - Pharmacyon 0 07-12-2022 Progress Note - Pharmacy Normal [facility] eGFRon 07-12-2022 GFR/1.73 sq M.predicted among non-blacks MDRD (S/P/Bld) [Vol rate/Area] 7 mL/min/1.73 m2 Low >=59 [facility] Comment on above: Order Comment: Order added by Discern Expert. 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 Kidney failure is indicated at less than 15 mL/min/1.73m2. Performed By: #### 2 339027, 0396831, 3407918, 55695966 ####[facility] [address] [place] [address] ED Note-Physicianon 07-12-19 ED Note-Physician Normal [facility] Comment on above: Result Comment: Elec tronically Signed By: Zack Domingo PA-C\.br\Date and Time Signed: 07/09/22 20:28 EDT\.br\Electronically Co-Signed By: Adam Weinberg M.D.\.br\Date and Time Co-Signed: 07/11/22 07:12 EDT US AV Fistula/Lisa 2022 US AV Fistula/Graft Normal [facility] US UE Venous Duplex Lefton 07-10-2022 US UE Venous Duplex Left Normal [facility] Consent for Treatmenton 06-12 Consent for Treatment [id number]#1.0 0CD:127 Normal [facility] Discharge Instructionson Discharge Instructions [id number]#1. 00CD:127 Normal [facility] ED Clinical Summaryon 2022 ED Clinical Summary Normal [facility] ED Patient Education Noteon 07-09-2022 ED Patient Education Note Normal [facility] ED Patient Summaryon 023 ED Patient Summary Normal [facility] Cardiovascular Reporton 06-12 Cardiovascular Report [id number]#1. 00CD:127 Normal [facility] Consent for Procedure/Surger yon 07-04-2022 Consent for Procedure/Surgery [id number]#1. 00CD:127 Normal [facility] Consultation Noteon 07-05-19 Consultation Note Normal [facility] Comment on above: Result Comment: Elec tronically Signed By: Brian SHIN, Sarah Ugalde\.br\Date and Time Signed: 07/03/22 21:20 EDT\.br\Electronically Co-Signed By: Jatin Fournier MD\.br\Date and Time Co-Signed: 07/04/22 12:37 EDT Discharge Instructionson Discharge Instructions [id number]#1. 00CD:127 Normal [facility] Progress Note-Nurseon 2022 Progress Note-Nurse [id number]#1. 00CD:127 Normal [facility] Auto Diffon 07-03-2022 Basophils/100 WBC (Bld) 0.3 % Normal 0.0-2.0 [facility] Comment on above: Order Comment: Order Added by Discern Expert. Performed By: #### 1 0793305, 5758757, 0796409, 1592673 ####[address] [place] [address] Basophils/Leukocytes Auto (Bld) [Pure # fraction] 0.0 E9/L Normal 0.0-0.2 [facility] Comment on above: Order Comment: Order Added by Discern Expert. Performed By: #### 1 1929750, 5633433, 9447195, 0029825 ####[address] [address] Eosinophils/100 WBC (Bld) 1.0 % Normal 0.0-8.0 [facility] Comment on above: Order Comment: Order Added by Discern Expert. Performed By: #### 1 4908919, 3581415, 3473358, 9065587 ####[address] [address] Eosinophils/Leukocyt es Auto (Bld) [Pure # fraction] 0.1 E9/L Normal 0.0-0.5 [facility] Comment on above: Order Comment: Order Added by Discern Expert. Performed By: #### 1 9117830, 5368304, 4255905, 3739612 ####[address] [address] Lymphocytes/100 WBC (Bld) 9.1 % Low 14.0-50.0 [facility] Comment on above: Order Comment: Order Added by Discern Expert. Performed By: #### 1 5302680, 4930196, 3407258, 3016181 ####[address] [address] Lymphocytes/Leukocyt es Auto (Bld) [Pure # fraction] 0.6 E9/L Low 1.0-4.0 [facility] Comment on above: Order Comment: Order Added by Discern Expert. Performed By: #### 1 9160900, 4510359, 1286507, 0499374 ####[address] [address] Monocytes/100 WBC (Bld) 16.7 % High 4.0-14.0 [facility] Comment on above: Order Comment: Order Added by Discern Expert. Performed By: #### 1 5569787, 5693441, 8274275, 0935930 ####[address] [place] [address] Monocytes/Leukocytes Auto (Bld) [Pure # fraction] 1.2 E9/L High 0.2-1.0 [facility] Comment on above: Order Comment: Order Added by Discern Expert. Performed By: #### 1 6264878, 0667070, 3520951, 2603355 ####[address] [place] [address] Neutrophils/100 WBC (Bld) 72.9 % Normal 36.0-75.0 [facility] Comment on above: Order Comment: Order Added by Discern Expert. Performed By: #### 1 6977180, 8052685, 7432716, 5647282 ####[address] [place] [address] Neutrophils/Leukocyt es Auto (Bld) [Pure # fraction] 5.2 E9/L Normal 2.0-7.5 [facility] Comment on above: Order Comment: Order Added by Discern Expert. Performed By: #### 1 7716654, 8237859, 6524122, 7274108 ####[address] [place] [address] BMPon 07-03-2022 Anion gap [Moles/Vol] 19 mmol/L High 6-16 [facility] Comment on above: Performed By: #### 1 6467876, 3005792, 6251003, 1237537 ####[facility] [address] [place] [address] Calcium [Mass/Vol] 8.3 mg/dL Low 8.9-11.1 [facility] Comment on above: Performed By: #### 1 9427003, 2427297, 1166005, 0447181 ####[address] [place] [address] Chloride [Moles/Vol] 98 mmol/L Low 101-111 [facility] Comment on above: Performed By: #### 1 4450028, 5729065, 3246889, 6537316 ####[facility] [address] [place] [address] CO2 [Moles/Vol] 23 mmol/L Normal 21-[address] [facility] Comment on above: Performed By: #### 1 6457247, 4009308, 1974751, 2373635 ####[facility] [address] [place] [address] Creatinine [Mass/Vol] 17.8 mg/dL Abnormal 0.5-1.3 [facility] Comment on above: Result Comment: Crit ical Result S_CREA:17.80 Called to BRADY SILVERMAN AT [facility] by CATHY LERNER And Read Back For Confirmation at: 07/03/2022 07:23:33\Critical Result verified by previous result Performed By: #### 1 5471341, 2904041, 1536939, 9187823 ####[facility] [address] [place] [address] Glucose [Mass/Vol] 226 mg/dL High 55-199 [facility] Comment on above: Result Comment: If t his glucose result represents a fasting glucose, interpretation should refer to the following reference range: 55-99 mg/dL Performed By: #### 1 4039528, 1254025, 4282534, 0375337 ####[facility] [address] [place] [address] Potassium [Moles/Vol] 4.8 mmol/L Normal 3.5-5.3 [facility] Comment on above: Performed By: #### 1 0453773, 0248772, 3764145, 2313644 ####[facility] [address] [place] [address] Sodium [Moles/Vol] 135 mmol/L Normal 135-145 [facility] Comment on above: Performed By: #### 1 5393869, 9709837, 1362495, 4477053 ####[facility] [address] [place] [address] Urea nitrogen [Mass/Vol] 88 mg/dL Abnormal 5-21 [facility] Comment on above: Result Comment: Crit ical Result S_BUN:88 Called to BRADY SILVERMAN AT [address] by CATHY LERNER And Read Back For Confirmation at: 07/03/2022 07:23:33\Critical Result verified by previous result Performed By: #### 1 1690127, 5332878, 3799344, 1997918 ####[facility] [address] Urea nitrogen/Creatinine [Mass ratio] 5 No Units Low 10-20 [facility] Comment on above: Performed By: #### 1 9177596, 3547027, 4733620, 4983246 ####[facility] [address] [place] [address] CBC w/ Auto Diffon Erythrocyte distribution width (RBC) [Ratio] 17.0 % High 10.9-14.2 [facility] Comment on above: Performed By: #### 1 2390284, 8845601, 8591932, 7966580 ####[facility] [address] [place] [address] Hematocrit (Bld) [Volume fraction] 26.8 % Low 37.7-49.0 [facility] Comment on above: Performed By: #### 1 0529931, 0491087, 1487508, 5921299 ####[facility] [address] [place] [address] Hemoglobin (Bld) [Mass/Vol] 9.2 g/dL Low 13.5-17.5 [facility] Comment on above: Performed By: #### 1 7288147, 6223711, 5805950, 2591570 ####[facility] [address] [place] [address] MCH (RBC) [Entitic mass] 30.4 pg Normal 27.0-34.0 [facility] Comment on above: Performed By: #### 1 8073917, 2523116, 8248049, 7464753 ####[facility] [address] [place] [address] MCHC (RBC) [Mass/Vol] 34.3 g/dL Normal 31.4-36.0 [facility] Comment on above: Performed By: #### 1 0921492, 6888863, 7120496, 2774650 ####[address] [place] [address] MCV (RBC) [Entitic vol] 88.5 fL Normal 80.0-100.0 [facility] Comment on above: Performed By: #### 1 1821926, 5240110, 2409827, 2344796 ####[address] [address] Platelet mean volume (Bld) [Entitic vol] 8.4 fL Normal 6.4-10.8 [facility] Comment on above: Performed By: #### 1 2692530, 9960538, 3240499, 0645946 ####[address] [address] Platelets (Bld) [#/Vol] 155.0 E9/L Normal 150.0-500.0 [facility] Comment on above: Performed By: #### 1 1263501, 3797520, 0971779, 3384310 ####[address] [address] RBC (Bld) [#/Vol] 3.0 E12/L Low 4.3-5.9 [facility] Comment on above: Performed By: #### 1 3569275, 4231833, 6632810, 1029206 ####[address] [address] WBC corrected for nucl RBC Auto (Bld) [#/Vol] 7.1 E9/L Normal 4.0-11.0 [facility] Comment on above: Result Comment: Slid e reviewed by BC. Performed By: #### 1 4633708, 9735536, 7468419, 7696424 ####[address] [address] Capillary Glucose POCon 06-12 Glucose [Mass/Vol] 146 mg/dL High 55-99 [facility] Comment on above: Result Comment: Ambrocio ELIAS Performed By: #### 2 33613033 ####[facility] [address] [place] [address] Glucose [Mass/Vol] 158 mg/dL High 55-99 [facility] Comment on above: Result Comment: Ambrocio ELIAS Performed By: #### 2 67614635 ####[facility] [address] [place] [address] Cardiovascular Reporton 06-12 Cardiovascular Report [id number]#2. 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 Pt is from home with , previously rounded with Dr. Arauz and plan to DC home after dialysis. contact information provided and white board updated. CRM following. [facility] Comment on above: Result Comment: Elec tronically Signed By: Obie TORREZ, Alaina\.asael\Date and Time Signed: 07/03/22 10:14 EDT Monitor Recordon 07-03-2022 Monitor Record [id number]#1. 00CD:127 [facility] Monitor Record [id number]#1. 00CD:127 [facility] Monitor Record [id number]#1. 00CD:127 [facility] Monitor Record [id number]#1. 00CD:127 Normal [facility] Patient Education - Texton 0 07-03-2022 Patient Education - Text Normal [facility] Progress Note-Physicianon Progress Note-Physician Normal [facility] Comment on above: Result Comment: Elec tronically Signed By: DAVONTE FISH, Pedro\.br\Date and Time Signed: 07/03/22 08:34 EDT eGFRon 07-03-2022 GFR/1.73 sq M.predicted among non-blacks MDRD (S/P/Bld) [Vol rate/Area] 3 mL/min/1.73 m2 Low >=59 [facility] Comment on above: Order Comment: Order added by Discern Expert. 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 Kidney failure is indicated at less than 15 mL/min/1.73m2. Performed By: #### 1 1148090, 5363355, 6843062, 2754517 ####[facility] [address] [place] [address] BMPon 07-02-2022 Creatinine [Mass/Vol] 16.8 mg/dL Abnormal 0.5-1.3 [facility] Comment on above: Result Comment: Crit ical Result S_CREA:16.80 Called to LESTER MELTON AT [facility] by CATHY LERNER And Read Back For Confirmation at: 07/02/2022 13:30:56\Critical Result verified by repeat analysis Performed By: #### 1 2744225, 4398901 ####[facility] [address] [place] [address] Urea nitrogen [Mass/Vol] 78 mg/dL High 5-21 [facility] Comment on above: Performed By: #### 1 1765990, 3489728 ####[facility] [address] [place] [address] Urea nitrogen/Creatinine [Mass ratio] 5 No Units Low 10-20 [facility] Comment on above: Performed By: #### 1 3531149, 0539399 ####[facility] [address] [place] [address] Anion gap [Moles/Vol] 22 mmol/L High 6-16 [facility] Comment on above: Performed By: #### 1 9597299, 1282651 ####[facility] [address] [place] [address] Calcium [Mass/Vol] 8.9 mg/dL Normal 8.9-11.1 [facility] Comment on above: Performed By: #### 1 1026264, 7680020 ####[facility] [address] [place] [address] Chloride [Moles/Vol] 96 mmol/L Low 101-111 [facility] Comment on above: Performed By: #### 1 4716701, 5852131 ####[facility] [address] [place] [address] CO2 [Moles/Vol] 21 mmol/L Normal 21-[address] [facility] Comment on above: Performed By: #### 1 9658492, 6754368 ####[facility] [address] [place] [address] Glucose [Mass/Vol] 229 mg/dL High 55-199 [facility] Comment on above: Result Comment: If t his glucose result represents a fasting glucose, interpretation should refer to the following reference range: 55-99 mg/dL Performed By: #### 1 5668846, 3933884 ####[facility] [address] [place] [address] Potassium [Moles/Vol] 4.9 mmol/L Normal 3.5-5.3 [facility] Comment on above: Performed By: #### 1 9471789, 2659442 ####[facility] [address] [place] [address] Sodium [Moles/Vol] 134 mmol/L Low 135-145 [facility] Comment on above: Performed By: #### 1 5169044, 7100006 ####[facility] [address] [place] [address] Capillary Glucose POCon 06-12 Glucose [Mass/Vol] 253 mg/dL High 55-99 [facility] Comment on above: Performed By: #### 2 12208119 ####[facility] [address] [place] [address] Consent for Treatmenton 06-12 Consent for Treatment [id number]#1.0 0CD:127 Normal [facility] Interdisciplinary Note - Bang singon 07-02-2022 Interdisciplinary Note - Nursing Normal [facility] Monitor Recordon 07-02-2022 Monitor Record [id number]#1. 00CD:127 Normal [facility] Operative Reporton Operative Report Normal [facility] Comment on above: Result Comment: Elec tronically Signed By: Dorian FISH, Evelyn Lopez\.br\Date and Time Signed: 07/02/22 15:32 EDT eGFRon 07-02-2022 GFR/1.73 sq M.predicted among non-blacks MDRD (S/P/Bld) [Vol rate/Area] 3 mL/min/1.73 m2 Low >=59 [facility] Comment on above: Order Comment: Order added by Discern Expert. 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 Kidney failure is indicated at less than 15 mL/min/1.73m2. Performed By: #### 1 3095316, 1377637 ####[facility] [address] [place] [address] Discharge Instructionson Discharge Instructions [id number]#1.0 0CD:127 Normal [facility] BMPon 06-29-2022 Creatinine [Mass/Vol] 10.3 mg/dL Abnormal 0.5-1.3 [facility] Comment on above: Result Comment: Crit ical Result verified by repeat analysis\Critical Result S_CREA:10.30 Called to DOMINGO LANGE AT by NOEL ORNELAS And Read Back For Confirmation at: 06/29/2022 17:06:57 Performed By: #### 2 551665, 22201031 ####[facility] [address] [place] [address] Urea nitrogen [Mass/Vol] 41 mg/dL High 5-21 [facility] Comment on above: Performed By: #### 2 285505, 92902634 ####[facility] [address] [place] [address] Urea nitrogen/Creatinine [Mass ratio] 4 No Units Low 10-20 [facility] Comment on above: Performed By: #### 2 601574, 27479443 ####[facility] [address] [place] [address] Anion gap [Moles/Vol] 16 mmol/L Normal 6-16 [facility] Comment on above: Performed By: #### 2 192352, 23405268 ####[facility] [address] [place] [address] Calcium [Mass/Vol] 9.6 mg/dL Normal 8.9-11.1 [facility] Comment on above: Performed By: #### 2 785550, 34313722 ####[facility] [address] [place] [address] Chloride [Moles/Vol] 98 mmol/L Low 101-111 [facility] Comment on above: Performed By: #### 2 987309, 56491711 ####[facility] [address] [place] [address] CO2 [Moles/Vol] 25 mmol/L Normal 21-[address] [facility] Comment on above: Performed By: #### 2 950794, 29894159 ####[facility] [address] [place] [address] Glucose [Mass/Vol] 159 mg/dL Normal 55-199 [facility] Comment on above: Result Comment: If t his glucose result represents a fasting glucose, interpretation should refer to the following reference range: 55-99 mg/dL Performed By: #### 2 884459, 76286977 ####[facility] [address] [place] [address] Potassium [Moles/Vol] 4.3 mmol/L Normal 3.5-5.3 [facility] Comment on above: Performed By: #### 2 423123, 26028488 ####[facility] [address] [place] [address] Sodium [Moles/Vol] 135 mmol/L Normal 135-145 [facility] Comment on above: Performed By: #### 2 299517, 43116368 ####[facility] [address] [place] [address] Consent for Treatmenton 06-11 Consent for Treatment [id number]#1.0 0CD:127 Normal [facility] ED Clinical Summaryon 2022 ED Clinical Summary Normal [facility] ED Note-Physicianon 06-30-19 ED Note-Physician Normal [facility] Comment on above: Result Comment: Elec tronically Signed By: Reji Azar DO\.br\Date and Time Signed: 06/29/22 19:10 EDT ED Patient Education Noteon 06-29-2022 ED Patient Education Note Normal [facility] ED Patient Summaryon 023 ED Patient Summary Normal [facility] US AV Fistula/Lisa 2022 US AV Fistula/Graft Normal [facility] eGFRon 06-29-2022 GFR/1.73 sq M.predicted among non-blacks MDRD (S/P/Bld) [Vol rate/Area] 5 mL/min/1.73 m2 Low >=59 [facility] Comment on above: Order Comment: Order added by Discern Expert. 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 Kidney failure is indicated at less than 15 mL/min/1.73m2. Performed By: #### 2 726364, [id number] ####[facility] [address] [place] [address] Progress Noteson 05-17-2022 Line Ordering Clinician Authentication Interface Message Text EMERGENCY TRIAGE, TREAT AND TRANSPORT (ET3) DOCUMENTATION OF TELEHEALTH VISIT Date / Time: 05/16/20221754 Name: Dedrick Murphy : 1955 SSN: (Not on file) EMS Agency: [facility] [] Verbal consent obtained [x] Implied [...] Completed by: Guicho Angelo DO Normal [facility] SYMPTOMATIC COVID-19 ANTIGEN on 05-09-2022 EUA Statement SEE BELOW Normal [facility] Comment on above: Result Comment: This test [...] sooner. Performed By: #### C VDAGS #### [facility] [address] [address] [address] Radha Edward SARS-CoV-2 (COVID-19) RNA IRENE+probe Ql (Unsp spec) Positive Abnormal NEGATIVE [facility] Comment on above: Performed By: #### C VDAGS #### [facility] [address] [address] [address] Radha Edward Coding Summary.on 03-21-2022 Coding Summary. Normal [facility] Coding Summary. Normal [facility] Operative Reporton Operative Report Normal [facility] Comment on above: Result Comment: Elec tronically Signed By: Dorian FISH, Evelyn Lopez\.br\Date and Time Signed: 03/19/22 11:58 EST Coding Summary.on 02-03-2023 Coding Summary. Normal [facility] Consent for Procedure/Surger yon 03-16-2022 Consent for Procedure/Surgery [id number]#1. 00CD:127 Normal [facility] Discharge Instructionson Discharge Instructions [id number]#1. 00CD:127 Normal [facility] Auto Diffon 03-15-2022 Basophils/100 WBC (Bld) 1.2 % Normal 0.0-2.0 [facility] Comment on above: Order Comment: Order Added by Discern Expert. Performed By: #### 2 566339, 7135556, 1908504, 52472166 ####[facility] [address] [place] [address] Basophils/Leukocytes Auto (Bld) [Pure # fraction] 0.1 E9/L Normal 0.0-0.2 [facility] Comment on above: Order Comment: Order Added by Discern Expert. Performed By: #### 2 295573, 9781855, 6638816, 58918542 ####[facility] [address] [place] [address] Eosinophils/100 WBC (Bld) 2.9 % Normal 0.0-8.0 [facility] Comment on above: Order Comment: Order Added by Discern Expert. Performed By: #### 2 938857, 1594204, 2292624, 95094439 ####[address] [place] [address] Eosinophils/Leukocyt es Auto (Bld) [Pure # fraction] 0.2 E9/L Normal 0.0-0.5 [facility] Comment on above: Order Comment: Order Added by Discern Expert. Performed By: #### 2 822323, 6979862, 7030235, 64959920 ####[facility] [address] [place] [address] Lymphocytes/100 WBC (Bld) 16.1 % Normal 14.0-50.0 [facility] Comment on above: Order Comment: Order Added by Discern Expert. Performed By: #### 2 047341, 2837906, 9401300, 39530473 ####[address] [place] [address] Lymphocytes/Leukocyt es Auto (Bld) [Pure # fraction] 0.9 E9/L Low 1.0-4.0 [facility] Comment on above: Order Comment: Order Added by Discern Expert. Performed By: #### 2 147735, 8474755, 2921704, 10273878 ####[address] [place] [address] Monocytes/100 WBC (Bld) 15.1 % High 4.0-14.0 [facility] Comment on above: Order Comment: Order Added by Cayla Expert. Performed By: #### 2 618416, 6963519, 9225139, 85528647 ####[address] [address] Monocytes/Leukocytes Auto (Bld) [Pure # fraction] 0.8 E9/L Normal 0.2-1.0 [facility] Comment on above: Order Comment: Order Added by Cayla Expert. Performed By: #### 2 137257, 7049881, 3909372, 26815599 ####[address] [address] Neutrophils/100 WBC (Bld) 64.7 % Normal 36.0-75.0 [facility] Comment on above: Order Comment: Order Added by Cayla Expert. Performed By: #### 2 507973, 6471515, 1075764, 42109027 ####[address] [place] [address] Neutrophils/Leukocyt es Auto (Bld) [Pure # fraction] 3.5 E9/L Normal 2.0-7.5 [facility] Comment on above: Order Comment: Order Added by Cayla Expert. Performed By: #### 2 722240, 4177544, 6091714, 68275044 ####[address] [place] [address] BMPon 03-15-2022 Anion gap [Moles/Vol] 16 mmol/L Normal 6-16 [facility] Comment on above: Performed By: #### 2 408939, 9181412, 5834758, 98278322 ####[facility] [address] [place] [address] Calcium [Mass/Vol] 9.3 mg/dL Normal 8.9-11.1 [facility] Comment on above: Performed By: #### 2 116471, 8368821, 7350129, 30799280 ####[facility] [address] [facility] [place] [address] Chloride [Moles/Vol] 93 mmol/L Low 101-111 [facility] Comment on above: Performed By: #### 2 175953, 4568450, 8981237, 32129787 ####[facility] [address] [place] [address] CO2 [Moles/Vol] 28 mmol/L Normal 21-[address] [facility] Comment on above: Performed By: #### 2 907500, 6837981, 3174639, 22685255 ####[facility] [address] [place] [address] Creatinine [Mass/Vol] 7.2 mg/dL High 0.5-1.3 [facility] Comment on above: Performed By: #### 2 329623, 7920991, 9864596, 70374051 ####[facility] [address] [facility] [place] [address] Glucose [Mass/Vol] 198 mg/dL Normal 55-199 [facility] Comment on above: Result Comment: If t his glucose result represents a fasting glucose, interpretation should refer to the following reference range: 55-99 mg/dL Performed By: #### 2 258307, [id number], [id number], [id number] ####[facility] [address] [facility] [place] [address] Potassium [Moles/Vol] 3.6 mmol/L Normal 3.5-5.3 [facility] Comment on above: Performed By: #### 2 842676, 0732378, 5035442, [id number] ####[facility] [address] [place] [address] Sodium [Moles/Vol] 133 mmol/L Low 135-145 [facility] Comment on above: Performed By: #### 2 133266, 4345346, 8818166, [id number] ####[facility] [address] [place] [address] Urea nitrogen [Mass/Vol] 17 mg/dL Normal 5-21 [facility] Comment on above: Performed By: #### 2 964208, 3969175, 6504215, 13571426 ####[address] [address] Urea nitrogen/Creatinine [Mass ratio] 2 No Units Low 10-20 [facility] Comment on above: Performed By: #### 2 177050, 1802883, 8832378, 75552366 ####[facility] [address] [place] [address] CBC w/ Auto Diffon 3 Erythrocyte distribution width (RBC) [Ratio] 15.4 % High 10.9-14.2 [facility] Comment on above: Performed By: #### 2 697694, 8250387, 1936288, 00424128 ####[address] [address] Hematocrit (Bld) [Volume fraction] 32.3 % Low 37.7-49.0 [facility] Comment on above: Performed By: #### 2 698402, 3224041, 7389091, 77659805 ####[facility] [address] [place] [address] Hemoglobin (Bld) [Mass/Vol] 10.9 g/dL Low 13.5-17.5 [facility] Comment on above: Performed By: #### 2 820780, 1439593, 2836356, 57170490 ####[address] [place] [address] MCH (RBC) [Entitic mass] 30.5 pg Normal 27.0-34.0 [facility] Comment on above: Performed By: #### 2 564350, 7999556, 7012835, 85556756 ####[address] [address] MCHC (RBC) [Mass/Vol] 33.9 g/dL Normal 31.4-36.0 [facility] Comment on above: Performed By: #### 2 757307, 3078159, 3097735, 63299802 ####[place] [address]57 MCV (RBC) [Entitic vol] 90.0 fL Normal 80.0-100.0 [facility] Comment on above: Performed By: #### 2 467867, 3510704, 0841282, 31661171 ####[place] [address]0157 Platelet mean volume (Bld) [Entitic vol] 8.5 fL Normal 6.4-10.8 [facility] Comment on above: Performed By: #### 2 256186, 7246660, 2254896, 55744271 ####[address] [address] Platelets (Bld) [#/Vol] 210.0 E9/L Normal 150.0-500.0 [facility] Comment on above: Performed By: #### 2 259953, 8192478, 5862223, 25750692 ####[address] [address] RBC (Bld) [#/Vol] 3.6 E12/L Low 4.3-5.9 [facility] Comment on above: Performed By: #### 2 846592, 9847592, 2896838, 14645827 ####[address] [address] WBC corrected for nucl RBC Auto (Bld) [#/Vol] 5.4 E9/L Normal 4.0-11.0 [facility] Comment on above: Result Comment: Slid e reviewed by cmk. Performed By: #### 2 968898, 0430460, 8476648, 70779453 ####[facility] [address] [place] [address] CHEMISTRYOrdered By: SYSTEM SYSTEM on 03-15-2022 Anion [...] 8 mL/min/1.73 m2 Low >=59mL/min/1 .73 m2 [facility] Chem S Glucose [Mass/Vol] 198 mg/dL Normal 55 - 199 mg/dL [facility] Remisol Potassium [Moles/Vol] 3.6 mmol/L Normal 3.5 - 5.3 mmol/L [facility] Remisol Sodium [Moles/Vol] 133 mmol/L Low 135 - 145 mmol/L [facility] Remisol Urea nitrogen [Mass/Vol] 17 mg/dL Normal 5 - 21 mg/dL [facility] Remisol Urea nitrogen/Creatinine [Mass ratio] 2 mg/mg Low 10 - 20 [facility] Remisol Cardiovascular Reporton Cardiovascular Report [id number]#1. 00CD:127 Normal [facility] Consent for Treatmenton Consent for Treatment [id number]#1.0 0CD:127 Normal [facility] Consent for Treatment [id number]#1.0 0CD:127 Normal [facility] Consent for Treatment [id number]#1.0 0CD:127 Normal [facility] HEMATOLOGYOrdered By: SYSTEM SYSTEM on 03-15-2022 Basophils/100 [...] 03-15-2022 Heart and Vascular Office/Clinic Note Normal [facility] Comment on above: Result Comment: Elec tronically Signed By: Dorian FISH, Evelyn Lopez\.br\Date and Time Signed: 03/15/22 11:33 EST Inpatient Clinical Summaryon 03-15-2022 Inpatient Clinical Summary Normal [facility] Inpatient Patient Summaryon 03-15-2022 Inpatient Patient Summary Normal [facility] Patient Education - Texton 0 03-15-2022 Patient Education - Text Normal [facility] Progress Note-Physicianon Progress Note-Physician Normal [facility] Comment on above: Result Comment: Elec tronically Signed By: Dorian FISH, Evelyn Lopez\.br\Date and Time Signed: 03/15/22 16:00 EST eGFRon 03-15-2022 GFR/1.73 sq M.predicted among blacks MDRD (S/P/Bld) [Vol rate/Area] 9 mL/min/1.73 m2 Low >=59 [facility] Comment on above: Order Comment: Order added by Discern Expert. Result Comment: eGFR is race adjusted. AA=. Performed By: #### 2 827397, 8514080, 8757221, 83548814 ####[facility] [address] [place] [address] GFR/1.73 sq M.predicted among non-blacks MDRD (S/P/Bld) [Vol rate/Area] 8 mL/min/1.73 m2 Low >=59 [facility] Comment on above: Order Comment: Order added by Discern Expert. 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 Kidney failure is indicated at less than 15 mL/min/1.73m2. Performed By: #### 2 085361, 4766728, 4816582, 71405205 ####[facility] [address] [place] [address] XR FOOT VENITA MIN 3 VIEWSon XR [...] by: NATHEN LUCIA Date: 2022-02-15 11:42 Normal [facility] CULTURE WOUNDon 01-15-2022 CULTURE WOUND Culture [...] Trimethoprim/Sulfameth oxazole <=20 S F Normal [facility] Comment on above: Performed By: #### W OUNDCX #### [facility] [address] [place] [address] Dr. Radha Edward Office Visit (Cardiology)on 01-11-2022 Follow-up visit Diagnoses/Problems Assessed Arteriosclerotic heart disease (414.00) (I25.10) History of PTCA (V45.82) (Z98.61) History of acute anterior wall SD (412) (I25.2) Class 1 obesity with body [...] He has a history of ASHD with TILT TRAY DRIVER intervention of the LAD in April 2018 [...] Heparin (Porcine) in NaCl 1000-0.9 UT/500ML-% Intravenous Pywyuzfg3778 units every dialysis loading dose Levothyroxine Sodium [...] Adrenergic Blockers Adverse Reaction; Hypotension;; Recorded By: tOto Fermin; 01/11/2022 11:55:24 AM Bandages MISC Allergy; [...] Recorded: 11Jan2022 11:29AM Heart Rate80, L Radial Wnxxnbuh07, RUE, Sitting Wrnkgzdse59, RUE, Sitting Height5 ft 10 in Wrfcij783 lb BMI Eiqlblddim25.71 kg/m2 BSA Calculated2.21 Tobacco Useb) No Falls [...] a) No falls within the last year -[facility] [employer] [address] DO Work Phone: Tobacco use status CPHS b) No -[facility] [employer] [address] DO Work Phone: Glucose Poct Glucometerson 1 02-26-2021 Glucose [Mass/Vol] 82 mg/dL Normal [facility] Comment on above: Result Comment: [facility] Glucose Reference Range is dependent on time and content of last meal. Glucose of more than 200 mg/dL in a nonstressed, ambulatory subject supports the diagnosis of Diabetes Mellitus. PERFORMED BY: [address] [address] PATHOLOGIST HATCHERY MAN DEAN MCWILLIAMS M.D. Performed By: #### G LUELLIS #### Point of Care testing , Coding Summary.on 11-07-2021 Coding Summary. Normal [facility] Coding Summary.on 11-06-2021 Coding Summary. Normal [facility] Cardiovascular Reporton 10-13 Cardiovascular Report [id number]#2. 00CD:127 [facility] Consent for Procedure/Surger yon 11-03-2021 Consent for Procedure/Surgery [id number]#1.0 0CD:127 [facility] Consent for Treatmenton 10-13 Consent for Treatment [id number]#1.0 0CD:127 [facility] Inpatient Clinical Summaryon 11-02-2021 Inpatient Clinical Summary Normal [facility] Inpatient Patient Summaryon 11-02-2021 Inpatient Patient Summary Normal [facility] Operative Reporton Operative Report Normal [facility] Comment on above: Result Comment: Elec tronically Signed By: Evelyn Alarcon MD\.br\Date and Time Signed: 11/02/21 16:32 EDT Patient Education - Texton 0 11-02-2021 Patient Education - Text Normal [facility] Progress Note-Physicianon Progress Note-Physician Normal [facility] Comment on above: Result Comment: Elec tronically Signed By: Evelyn Alarcon MD\.br\Date and Time Signed: 11/02/21 15:53 EDT Consent for Treatmenton 10-12 Consent for Treatment [id number]#1.0 0CD:127 Normal [facility] Heart and Vascular Office/Cl inic Noteon 10-26-2021 Heart and Vascular Office/Clinic Note Normal [facility] Comment on above: Result Comment: Elec tronically Signed By: Evelyn Alarcon MD\.br\Date and Time Signed: 10/26/21 15:13 EDT CBC AUTO DIFFon 08-28-2021 BASO # 0.0 103/ul Normal 0.0-0.1 [facility] Comment on above: Performed By: #### C BC #### [facility] [address] [address] [address] Radha Edward Basophils/100 WBC (Bld) 0.6 % Normal 0.2-2.0 [facility] Comment on above: Performed By: #### C BC #### [facility] [address] [address] [address] Radha Edward EO # 0.1 103/ul Normal 0.0-0.7 [facility] Comment on above: Performed By: #### C BC #### [facility] [address] [address] [address] Radha Edward Eosinophils/100 WBC (Bld) 1.7 % Normal 0.9-7.0 [facility] Comment on above: Performed By: #### C BC #### [facility] [address] [place] [address] Dr. Radha Edward Erythrocyte distribution width (RBC) [Ratio] 14.5 % Normal 11.0-15.0 [facility] Comment on above: Performed By: #### C BC #### [facility] [address] [place] [address] Dr. Radha Edward Hematocrit (Bld) [Volume fraction] 34.0 % Critically low 42.0-54.0 [facility] Comment on above: Performed By: #### C BC #### [facility] [address] [place] [address] Dr. Radha Edward Hemoglobin (Bld) [Mass/Vol] 11.1 g/dL Critically low 14.0-18.0 [facility] Comment on above: Performed By: #### C BC #### [facility] [address] [place] [address] Dr. Radha Edward IG # 0.02 10e3/ul Normal 0.00-0.03 [facility] Comment on above: Performed By: #### C BC #### [facility] [address] [place] [address] Dr. Radha Edward IG % 0.4 % Normal 0.0-0.5 [facility] Comment on above: Performed By: #### C BC #### [facility] [address] [place] [address] Dr. Radha Edward LYMPH # 1.0 103/ul Critically low 1.2-3.8 [facility] Comment on above: Performed By: #### C BC #### [facility] [address] [place] [address] Dr. Radha Edward Lymphocytes/100 WBC (Bld) 18.6 % Critically low 20.5-60.0 [facility] Comment on above: Performed By: #### C BC #### [facility] [address] [place] [address] Dr. Radha Edward MANUAL DIFF REQ NO Normal [facility] Comment on above: Performed By: #### C BC #### [facility] [address] [address] [address] Radha Edward MCH (RBC) [Entitic mass] 30.5 pg Normal 25.9-34.0 [facility] Comment on above: Performed By: #### C BC #### [facility] [address] [address] [address] Radha Edward MCHC (RBC) [Mass/Vol] 32.6 g/dL Normal 29.9-35.2 [facility] Comment on above: Performed By: #### C BC #### [facility] [address] [address] [address] Radha Edward MCV (RBC) [Entitic vol] 93.4 fL Normal 80.0-94.0 [facility] Comment on above: Performed By: #### C BC #### [facility] [address] [place] [address] Dr. Radha Edward MONO # 0.8 103/ul Normal 0.3-0.8 [facility] Comment on above: Performed By: #### C BC #### [facility] [address] [place] [address] Dr. Radha Edward Monocytes/100 WBC (Bld) 15.1 % Critically high 1.7-12.0 [facility] Comment on above: Performed By: #### C BC #### [facility] [address] [address] [address] Radha Edward NEUT # 3.5 103/ul Normal 1.4-6.5 [facility] Comment on above: Performed By: #### C BC #### [facility] [address] [place] [address] Dr. Radha Edward Neutrophils/100 WBC (Bld) 63.6 % Normal 43.0-75.0 [facility] Comment on above: Performed By: #### C BC #### [facility] [address] [place] [address] Dr. Radha Edward Platelet mean volume (Bld) [Entitic vol] 9.8 fL Normal 9.5-13.5 [facility] Comment on above: Performed By: #### C BC #### [facility] [address] [address] [address] Radha Edward PLT 156 103/ul Normal 150-450 [facility] Comment on above: Performed By: #### C BC #### [facility] [address] [address] [address] Radha Edward RBC 3.64 106/ul Critically low 4.70-6.10 [facility] Comment on above: Performed By: #### C BC #### [facility] [address] [address] [address] Radha Edward WBC 5.4 103/ul Normal 4.0-11.0 [facility] Comment on above: Performed By: #### C BC #### [facility] [address] [place] [address] Dr. Radha Edward PROF 14(COMP METB)on 022 Albumin [Mass/Vol] 3.6 g/dL Normal 3.4-5.0 [facility] Comment on above: Performed By: #### C MP, TSH, HSTROPN #### [facility] [address] [place] [address] Dr. Radha Edward Albumin/Globulin [Mass ratio] 0.9 {ratio} Normal [facility] Comment on above: Performed By: #### C MP, TSH, HSTROPN #### [facility] [address] [address] [address] Radha Edward ALP [Catalytic activity/Vol] 135 U/L Critically high 46-116 [facility] Comment on above: Performed By: #### C MP, TSH, HSTROPN #### [facility] [address] [address] [address] Radha Edward ALT [Catalytic activity/Vol] 21 U/L Normal 16-63 [facility] Comment on above: Performed By: #### C MP, TSH, HSTROPN #### [facility] [address] [place] [address] Dr. Radha Edward Anion gap [Moles/Vol] 13.6 mmol/L Normal [facility] Comment on above: Performed By: #### C MP, TSH, HSTROPN #### [facility] [address] [address] [address] Radha Edward AST [Catalytic activity/Vol] 14 U/L Critically low 15-37 [facility] Comment on above: Performed By: #### C MP, TSH, HSTROPN #### [facility] [address] [place] [address] Dr. Radha Edward Bilirubin [Mass/Vol] 0.6 mg/dL Normal 0.2-1.0 [facility] Comment on above: Performed By: #### C MP, TSH, HSTROPN #### [facility] [address] [place] [address] Dr. Radha Edward Calcium [Mass/Vol] 9.1 mg/dL Normal 8.5-10.1 [facility] Comment on above: Performed By: #### C MP, TSH, HSTROPN #### [facility] [address] [place] [address] Dr. Radha Edward Chloride [Moles/Vol] 95 mmol/L Critically low 98-107 [facility] Comment on above: Performed By: #### C MP, TSH, HSTROPN #### [facility] [address] [place] [address] Dr. Radha Edward CO2 [Moles/Vol] 29.8 mmol/L Normal 21.0-32.0 [facility] Comment on above: Performed By: #### C MP, TSH, HSTROPN #### [facility] [address] [place] [address] Dr. Radha Edward Creatinine [Mass/Vol] 5.55 mg/dL Critically high 0.70-1.30 [facility] Comment on above: Performed By: #### C MP, TSH, HSTROPN #### [facility] [address] [place] [address] Dr. Radha Edward EGFR-AF MARSHALLESE 13 mL/min/1.73m2 Critically low >=60 [facility] Comment on above: Performed By: #### C MP, TSH, HSTROPN #### [facility] [address] [address] [address] Radha Edward EGFR-NON AF MARSHALLESE 10 mL/min/1.73m2 Critically low >=60 [facility] Comment on above: Performed By: #### C MP, TSH, HSTROPN #### [facility] [address] [place] [address] Dr. Radha Edward Globulin (S) [Mass/Vol] 3.9 g/dL Normal [facility] Comment on above: Performed By: #### C MP, TSH, HSTROPN #### [facility] [address] [place] [address] Dr. Radha Edward Glucose [Mass/Vol] 164 mg/dL Critically high 74-106 [facility] Comment on above: Performed By: #### C MP, TSH, HSTROPN #### [facility] [address] [place] [address] Dr. Radha Edward Potassium [Moles/Vol] 3.4 mmol/L Critically low 3.5-5.1 [facility] Comment on above: Performed By: #### C MP, TSH, HSTROPN #### [facility] [address] [place] [address] Dr. Radha Edward Protein [Mass/Vol] 7.5 g/dL Normal 6.4-8.2 [facility] Comment on above: Performed By: #### C MP, TSH, HSTROPN #### [facility] [address] [place] [address] Dr. Radha Edward Sodium [Moles/Vol] 135 mmol/L Critically low 136-[address] [facility] Comment on above: Performed By: #### C MP, TSH, HSTROPN #### [facility] [address] [place] [address] Dr. Radha Edward Urea nitrogen [Mass/Vol] 13.0 mg/dL Normal 7.0-18.0 [facility] Comment on above: Performed By: #### C MP, TSH, HSTROPN #### [facility] [address] [place], [place] [address] Dr. Radha Edward Urea nitrogen/Creatinine [Mass ratio] 2.3 mg/mg Normal [facility] Comment on above: Performed By: #### C MP, TSH, HSTROPN #### [facility] [address] [place], [place] [address] Dr. Radha Edward TROPONIN, HIGH SENSITIVITYon 08-28-2021 HSTROP 11.8 pg/mL Normal 4.0-76.1 [facility] Comment on above: Result Comment: CUT- OFF POINTS HAVE BEEN ESTABLISHED BASED ON THE FOURTH UNIVERSAL DEFINITIONS OF MYOCARDIAL INFARCTION. THE UPPER REFERENCE LIMIT (URL) OF TROPONIN, DEFINED THE 99TH PERCENTILE OF cTnI DISTRIBUTION IN A REFERENCE POPULATION, HAS BEEN CONFIRMED THE DECISION THRESHOLD FOR SD DIAGNOSIS. Performed By: #### C MP, TSH, HSTROPN #### [facility] [address] [address] [address] Radha Edward TSHon 08-28-2021 TSH 0.749 uIU/mL Normal 0.358-3.740 [facility] Comment on above: Performed By: #### C MP, TSH, HSTROPN #### [facility] [address] [address] [address] Radha Edward XR CHEST 1 Von 08-28-2021 XR CHEST 1 V CHEST X-RAY, 1 VIEW HISTORY: Bradycardia. Chest pain. COMPARISON: 09/01/2019. FINDINGS: The cardiac silhouette is enlarged. Left hemidiaphragm is elevated. The lungs are grossly clear. There are no pleural effusions. There is no pneumothorax. IMPRESSION: No evidence of acute cardiopulmonary disease. Electronically authenticated by: CHRISTIANNE MELVIN Date: 2021-08-28 18:59 Normal [facility] Office Visit (Cardiology)on 07-13-2021 Follow-up visit [...] COVID illness in 2019. He underwent anterior SD with PCI chronic total occlusion of the proximal through mid LAD x2 drug-eluting stents in March 2018; follow-up echocardiogram revealed low normal left ventricular function with ejection fraction of 50% in September 2018. In March 2020 he underwent COVID infection with prolonged intubation and hospitalization in [place] with multiorgan failure details of which have [...] Heparin (Porcine) in NaCl 1000-0.9 UT/500ML-% Intravenous Bfdhwobl4420 unitts every dialysis loading dose hydrALAZINE HCl [...] Recorded: 13Jul2021 11:47AM Heart Rate66, R Radial Zwjcuwab671, RUE, Sitting Jpqonuhca31, RUE, Sitting Height5 ft 10 in Pojovc869 lb BMI Moyasohnoz61.14 kg/m2 BSA Calculated2.19 Tobacco Useb) No PHQ-2 [...] Electronically signed by : Corbin Ying DO; Robert 2 2022 12:27PM EST (Author) Normal [employer] Tobacco Screening.on 022 Adult depression screening assessment No [facility] 250 DO Work Phone: Fall risk assessment a) No falls within the last year formerly [facility] 250 DO Work Phone: Tobacco use status CPHS b) No formerly [facility] 250 DO Work Phone: Echocardiogramon 10-20-2020 Echocardiography [facility] [place] [address] [facility], [address] [place] [address] TRANSTHORACIC ECHOCARDIOGRAM REPORT Patient Name: CORBIN Bowers Physician: [id number] Alfredo Saravia DO Study Date: 10/20/2020 Referring [id number] CORBIN STEPAN Physician: MRN/PID: [id number] PCP: Violeta Alejo Accession/Order#: [id number] Department [facility] Location: [place] Date of : 1955 Fellow: Gender: M Nurse: Admit Date: Mechanic Sound Technician: Deena Adams RDCS, RVT Height: 177.80 cm CC Report to: Mairna Agudelo Weight: 103.42 kg Study Type: Echocardiogram BSA: 2.21 m2 Diagnosis/ICD: I25.10-Atherosclerotic heart disease of [place] coronary artery without angina pectoris; I25.5-Ischemic cardiomyopathy Indication: Diabetes, HTN, CKD-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 Author Type: Physician Costume Seamstress Type: Progress Notes Filed: 08/28/2019 10:29 AM Note Text: [facility] NOTE NAME: CORBIN MURPHYJOSE NO.: [id number] DATE OF SERVICE: 08/27/2019 [facility] DATE OF : 1955 CHIEF COMPLAINT: Followup for discharge. SUBJECTIVE FINDINGS: The patient was seen in his room at [facility] lying in bed. I remained greater [...] this patient. DICTATED BY: MARIANN Waterman JOB# [id number] cc:[facility] Normal [facility] PROGRESSon 08-07-2019 PROGRESS HNO ID: [id number] Author: Diane Chacon) Yann Service: ? Author Type: Physician Costume Seamstress Type: Progress Notes Filed: 08/11/2019 6:39 AM Note Text: [facility] NOTE NAME: CHRISTY MURPHY NO.: [id number] DATE OF SERVICE: 08/07/2019 [facility] DATE OF : 1955 [facility] CHART VISIT NOTE CHIEF COMPLAINT: Followup for end-stage renal disease, weakness, and other medical issues. SUBJECTIVE FINDINGS: The patient was seen in his room at [facility] lying in bed. I remained greater [...] any bowel issues. MEDICATIONS: Reviewed in the longterm record. CODE STATUS: Full code. PHYSICAL EXAMINATION: [...] DICTATED BY: Diane Lerner PA-C PG/Meagan JOB# [id number] cc:[facility] PROGRESSon 07-29-2019 PROGRESS HNO ID: [id number] Author: Diane Lerner (Pa) Service: ? Author Type: Physician Costume Seamstress Type: Progress Notes Filed: 07/30/2019 12:39 PM Note Text: [facility] NOTE NAME: CHRISTY MURPHY NO.: [id number] DATE OF SERVICE: 07/29/2019 [facility] DATE OF : 1955 CHIEF COMPLAINT: Follow up for end-stage renal disease, weakness, and other medical issues. SUBJECTIVE FINDINGS: The patient was seen in his room at [facility] sitting up in his wheelchair. I [...] SYSTEMS: See above. MEDICATIONS: Reviewed in the longterm record. CODE STATUS: Full code. PHYSICAL EXAMINATION: [...] DICTATED BY: Diane Lerner PA-C PG/Meagan JOB# [id number] cc:[facility] PROGRESSon 07-27-2019 PROGRESS HNO ID: [id number] Author: Saad Ahumada Service: ? Author Type: Physician Type: Progress Notes Filed: 07/29/2019 5:29 PM Note Text: [facility] HOME NOTE NAME: CHRISTY MURPHY NO.: [id number] DATE OF SERVICE: 07/27/2019 Toña Barker DATE [...] family. DICTATED BY: MD FLAKITO White/Meagan JOB# [id number] cc:[facility] PROGRESSon 07-16-2019 PROGRESS HNO ID: [id number] Author: Diane Chacon) Yann Service: ? Author Type: Physician Costume Seamstress Type: Progress Notes Filed: 07/17/2019 11:59 AM Note Text: [facility] NOTE NAME: CHRISTY MURPHY NO.: [id number] DATE OF SERVICE: 07/16/2019 [facility] DATE OF : 1955 [facility] CHART VISIT NOTE CHIEF COMPLAINT: Followup for potential discharge. SUBJECTIVE FINDINGS: The patient was seen in his room at [facility] sitting up in his wheelchair. I [...] Have asked our staff to contact his yarn spooler's office to clarify his aspirin dose. 3. [...] DICTATED BY: Diane Lerner PA-C PG/Meagan JOB# [id number] cc:[facility] PROGRESSon 07-13-2019 PROGRESS HNO ID: [id number] Author: Diane Lerner (Pa) Service: ? Author Type: Physician Costume Seamstress Type: Progress Notes Filed: 07/14/2019 2:18 PM Note Text: [facility] NOTE NAME: CHRISTY MURPHY NO.: [id number] DATE OF SERVICE: 07/13/2019 [facility] DATE OF : 1955 [facility] CHART VISIT NOTE CHIEF COMPLAINT: Skilled followup visit for end-stage renal disease, coronary artery disease, and other medical issues. SUBJECTIVE FINDINGS: The patient was seen in his room at [facility] for a skilled followup visit. I [...] SYSTEMS: See above. MEDICATIONS: Reviewed in the longterm record. CODE STATUS: Full code. PHYSICAL EXAMINATION: [...] We will ask staff to contact his yarn spooler's office to clarify the aspirin dose. 3. [...] DICTATED BY: Diane Lerner PA-C PG/Meagan JOB# [id number] cc:[facility] PROGRESSon 07-09-2019 PROGRESS HNO ID: [id number] Author: Diane Chacon) Yann Service: ? Author Type: Physician Costume Seamstress Type: Progress Notes Filed: 07/13/2019 10:19 AM Note Text: [facility] NOTE NAME: CHRISTY MURPHY NO.: [id number] DATE OF SERVICE: 07/09/2019 [facility] DATE OF : 1955 CHIEF COMPLAINT: Skilled followup visit for coronary artery disease, renal disease, and other medical issues. SUBJECTIVE FINDINGS: The patient was seen in his room at [facility] for skilled followup visit. I remained greater than 6 feet away from him for the evaluation due to the COVID-19 pandemic. The patient had been refusing heparin as he related that this was uncomfortable and that he was bleeding after administration. He is on longstanding Effient as ordered by Cardiology and has a history of stents. He follows with Dr. Ying in [place]. In addition, his current aspirin dose is [...] Please see above. MEDICATIONS: Reviewed in the longterm record. CODE STATUS: Full code. PHYSICAL EXAMINATION: [...] continues to refuse the medication. DICTATED BY: iDane Lerner PA-C PG/Meagan JOB# [id number] cc:[facility] PROGRESSon 07-01-2019 PROGRESS HNO ID: [id number] Author: Diane Lerner (Pa) Service: ? Author Type: Physician Costume Seamstress Type: Progress Notes Filed: 07/03/2019 7:47 AM Note Text: [facility] NOTE NAME: CHRISTY MURPHY NO.: [id number] DATE OF SERVICE: 07/01/2019 [facility] DATE OF : 1955 [facility] CHART VISIT NOTE CHIEF COMPLAINT: Venous stasis of the legs, weakness, and other medical issues. SUBJECTIVE FINDINGS: The patient was seen in his room at [facility] for skilled followup visit. I remained [...] SYSTEMS: See above. MEDICATIONS: Reviewed in the longterm record. CODE STATUS: Full code. PHYSICAL EXAMINATION: [...] DICTATED BY: Diane Lerner PA-C PG/Meagan JOB# [id number] cc:[facility] PROGRESSon 06-26-2019 PROGRESS HNO ID: [id number] Author: Diane Lerner (Pa) Service: ? Author Type: Physician Costume Seamstress Type: Progress Notes Filed: 06/29/2019 12:17 PM Note Text: [facility] NOTE NAME: CHRISTY MURPHY NO.: [id number] DATE OF SERVICE: 06/26/2019 [facility] DATE OF : 1955 [facility] CHART VISIT NOTE CHIEF COMPLAINT: Followup for renal disease, type 2 diabetes mellitus, and other medical issues. SUBJECTIVE FINDINGS: The patient was seen in his room sitting up in his wheelchair at [facility]. I remained greater than 6 feet [...] SYSTEMS: See above. MEDICATIONS: Reviewed in the longterm record. CODE STATUS: Full code. PHYSICAL EXAMINATION: [...] DICTATED BY: Diane Lerner PA-C PG/Meagan JOB# [id number] cc:[facility] PROGRESSon 06-18-2019 PROGRESS HNO ID: [id number] Author: Diane Chacon) Yann Service: ? Author Type: Physician Costume Seamstress Type: Progress Notes Filed: 06/19/2019 1:37 PM Note Text: [facility] NOTE NAME: CHRISTY MURPHY NO.: [id number] DATE OF SERVICE: 06/18/2019 [facility] DATE OF : 1955 [facility] CHART VISIT NOTE CHIEF COMPLAINT: Follow up for end-stage renal disease, type 2 diabetes mellitus, weakness, and other medical issues. SUBJECTIVE FINDINGS: The patient was seen in his room sitting up in his wheelchair at [facility]. I remained greater than 6 feet [...] lift for transfers. MEDICATIONS: Reviewed in the longterm record. CODE STATUS: Full code. PHYSICAL EXAMINATION: [...] DICTATED BY: Diane Lerner PA-C PG/Meagan JOB# [id number] cc:[facility] PROGRESSon 06-16-2019 PROGRESS HNO ID: [id number] Author: Diane Lerner (Pa) Service: ? Author Type: Physician Costume Seamstress Type: Progress Notes Filed: 06/17/2019 3:57 PM Note Text: [facility] NOTE NAME: CHRISTY MURPHY NO.: [id number] DATE OF SERVICE: 06/16/2019 [facility] DATE OF : 1955 CHIEF COMPLAINT: Skilled followup visit for type 2 diabetes mellitus, renal disease, and other medical issues. SUBJECTIVE FINDINGS: The patient was seen in his room lying in bed at [facility]. I remained greater than 6 feet [...] Please see above. MEDICATIONS: Reviewed in the longterm record. CODE STATUS: Full code. PHYSICAL EXAMINATION: Temperature 98.2, pulse 75, respirations 16, BP 108/55, pulse oximetry 96%. Examination revealed an obese, xtryhz-iusc-ejefxrxyh male lying in bed. He was in [...] DICTATED BY: Diane Lerner PA-C PG/Meagan JOB# [id number] cc:[facility] PROGRESSon 06-15-2019 PROGRESS HNO ID: [id number] Author: Saad Ahumada Service: ? Author Type: Physician Type: Progress Notes Filed: 06/18/2019 4:17 PM Note Text: [facility] NOTE NAME: CORBIN MURPHYJOSE NO.: [id number] DATE OF SERVICE: 06/15/2019 Toña Barker DATE OF : 1955 NEW PATIENT HISTORY AND PHYSICAL HISTORY OF PRESENT ILLNESS: The patient is a 63-year-old male who was admitted to us from [facility] with the diagnosis of acute hypoxemic respiratory [...] hospital with fever and increasing malaise. At [facility], he was treated for congestive heart failure exacerbation and bacterial pneumonia with antibiotics. However, his condition worsened requiring intubation, after which he was transferred to [facility] Intensive Care Unit where he [...] possible. DICTATED BY: MD FLAKITO White/Meagan JOB# [id number] cc:[facility] Operative Reporton 0 Operative Report MR#: [id number] S [facility] Pt. Name: Corbin Murphy Room [...] patient was consented and brought to the lab systems analyst. The patient was placed in supine position. [...] and the tubing of the PermCath size 14.5-Danish x 24 cm was tunneled starting with [...] Amaro MD Date Trans: 06/04/2019 01:35 P/mmo [id number] cc: Violeta Alejo M.D. [address], [facility] [address] [facility] Vital Signs Date Time Vital Sign Value Performing Clinician Facility 01-31-2023 09:47-0500 Body height 177.8 cm Corbin Ying DO Work Phone: [facility] 01-31-2023 09:47-0500 Body mass index (BMI) [Ratio] 29.41 kg/m2 Corbin Ying DO Work Phone: [facility] 01-31-2023 09:47-0500 Body weight 92.99 kg Corbin Ying DO Work Phone: [facility] 01-31-2023 09:47-0500 Diastolic blood pressure 62 mm[Hg] Corbin Ying DO Work Phone: [facility] 01-31-2023 09:47-0500 Heart rate 76 /min Corbin Ying DO Work Phone: [facility] 01-31-2023 09:47-0500 Systolic blood pressure 122 mm[Hg] Corbin Ying DO Work Phone: [facility] 08-09-2022 14:15-0400 Body height 180.34 cm Alfredo Acosta Other [facility] Other 08-09-2022 14:15-0400 Body mass index (BMI) [Ratio] 28.73 kg/m2 Alfredo Acosta Other [facility] Other 08-09-2022 14:15-0400 Body temperature 97.3 [degF] Alfredo Acosta Other [facility] Other 08-09-2022 14:15-0400 Body weight 93.44 kg Alfredo Acosta Other [facility] Other 08-09-2022 14:15-0400 Diastolic blood pressure 62 mm[Hg] Alfredo Acosta Other [facility] Other 08-09-2022 14:15-0400 Systolic blood pressure 99 mm[Hg] Alfredo Acosta Other [facility] Other 07-30-2022 09:03-0400 Blood Pressure Location Evelyn Alarcon [facility] 07-30-2022 09:03-0400 Diastolic blood pressure 60 mm[Hg] Evelyn Alarcon [facility] 07-30-2022 09:03-0400 Heart rate 77 /min Evelyn Alarcon [facility] 07-30-2022 09:03-0400 SaO2% (BldA) [Mass fraction] 98 % Evelyn Alarcon [facility] 07-30-2022 09:03-0400 Systolic blood pressure 110 mm[Hg] Evelyn Alarcon [facility] 07-12-2022 13:24-0400 Blood Pressure Location Evelyn Alarcon [facility] 07-12-2022 13:24-0400 Diastolic blood pressure 62 mm[Hg] Evelyn Alarcon [facility] 07-12-2022 13:24-0400 Heart rate 94 /min Evelyn Alarcon [facility] 07-12-2022 13:24-0400 SaO2% (BldA) [Mass fraction] 97 % Evelyn Alarcon [facility] 07-12-2022 13:24-0400 Systolic blood pressure 94 mm[Hg] Evelyn Alarcon [facility] 07-09-2022 19:00-0400 Diastolic blood pressure 65 mm[Hg] [facility] 07-09-2022 19:00-0400 Heart rate 74 /min [facility] 07-09-2022 19:00-0400 Mean blood pressure 80 mm[Hg] [facility] 07-09-2022 19:00-0400 Respiratory rate 17 /min [facility] 07-09-2022 19:00-0400 Systolic blood pressure 110 mm[Hg] [facility] 07-09-2022 18:30-0400 Heart rate 75 /min [facility] 07-09-2022 18:30-0400 Respiratory rate 23 /min [facility] 07-09-2022 18:00-0400 Diastolic blood pressure 60 mm[Hg] [facility] 07-09-2022 18:00-0400 Heart rate 79 /min [facility] 07-09-2022 18:00-0400 Mean blood pressure 73 mm[Hg] [facility] 07-09-2022 18:00-0400 Respiratory rate 11 /min [facility] 07-09-2022 18:00-0400 SaO2% (BldA) [Mass fraction] 96 % [facility] 07-09-2022 18:00-0400 Systolic blood pressure 98 mm[Hg] [facility] 07-09-2022 17:30-0400 Diastolic blood pressure 55 mm[Hg] [facility] 07-09-2022 17:30-0400 Mean blood pressure 67 mm[Hg] [facility] 07-09-2022 17:30-0400 SaO2% (BldA) [Mass fraction] 98 % [facility] 07-09-2022 17:30-0400 Systolic blood pressure 90 mm[Hg] [facility] 07-09-2022 17:25-0400 Body temperature 98.06 [degF] [facility] 07-09-2022 17:25-0400 Heart rate 95 /min [facility] 07-09-2022 17:25-0400 Respiratory rate 16 /min [facility] 07-09-2022 17:25-0400 SaO2% (BldA) [Mass fraction] 98 % [facility] 03-15-2022 11:05-0500 Blood Pressure Location Evelyn Dorian [facility] 03-15-2022 11:05-0500 Diastolic blood pressure 50 mm[Hg] Evelyn Alarcon [facility] 03-15-2022 11:05-0500 Heart rate 75 /min Noelkeenan Alarcon [facility] 03-15-2022 11:05-0500 SaO2% (BldA) [Mass fraction] 98 % [facility] 03-15-2022 11:05-0500 Systolic blood pressure 90 mm[Hg] Evelyn Alarcon [facility] 01-11-2022 11:29-0500 Body height 177.8 cm Violeta M Hoy Work Phone: formerly [facility] 250 DO Work Phone: 01-11-2022 11:29-0500 Body mass index (BMI) [Ratio] 32.71 kg/m2 Violeta M Hoy Work Phone: formerly [facility] 250 DO Work Phone: 01-11-2022 11:29-0500 Body surface area Derived from formula 2.21 m2 Violeta M Hoy Work Phone: formerly [facility] 250 DO Work Phone: 01-11-2022 11:29-0500 Body weight 103.42 kg Violeta M Hoy Work Phone: formerly [facility] 250 DO Work Phone: 01-11-2022 11:29-0500 Diastolic blood pressure 60 mm[Hg] Violeta M Hoy Work Phone: formerly [facility] 250 DO Work Phone: 01-11-2022 11:29-0500 Heart rate 80 /min Violeta M Hoy Work Phone: formerly [facility] 250 DO Work Phone: 01-11-2022 11:29-0500 Systolic blood pressure 98 mm[Hg] Violeta M Hoy Work Phone: formerly [facility] 250 DO Work Phone: 11-02-2021 12:32-0400 Blood Pressure Location Evelyn Dorian [facility] 11-02-2021 12:32-0400 Body temperature 97.7 [degF] Evelyn Alarcon [facility] 11-02-2021 12:32-0400 Diastolic blood pressure 63 mm[Hg] Evelyn Alarcon [facility] 11-02-2021 12:32-0400 Heart rate 72 /min Evelyn Dorian [facility] 11-02-2021 12:32-0400 Respiratory rate 16 /min Evelyn Harveyan [facility] 11-02-2021 12:32-0400 SaO2% (BldA) [Mass fraction] 96 % Evelyn Harveyan [facility] 11-02-2021 12:32-0400 Systolic blood pressure 105 mm[Hg] Evelyn Dorian [facility] 10-26-2021 14:53-0400 Blood Pressure Location Evelyn Alarcon [facility] 10-26-2021 14:53-0400 Diastolic blood pressure 66 mm[Hg] Evelyn Alarcon [facility] 10-26-2021 14:53-0400 Heart rate 82 /min Evelyn Harveyan [facility] 10-26-2021 14:53-0400 SaO2% (BldA) [Mass fraction] 97 % Evelyn Alarcon [facility] 10-26-2021 14:53-0400 Systolic blood pressure 107 mm[Hg] Evelyn Harveyan [facility] 07-13-2021 11:47-0400 Body height 177.8 cm Violeta Falcon [employer] Work Phone: formerly [facility] [employer] 250 DO Work Phone: 07-13-2021 11:47-0400 Body mass index (BMI) [Ratio] 32.14 kg/m2 Violeta Falcon [employer] Work Phone: [facility] [employer] 250 DO Work Phone: 07-13-2021 11:47-0400 Body surface area Derived from formula 2.19 m2 Violeta Ezekiel Hoy Work Phone: formerly [facility] 250 DO Work Phone: 07-13-2021 11:47-0400 Body weight 101.61 kg Violeta M Hoy Work Phone: formerly [facility] 250 DO Work Phone: 07-13-2021 11:47-0400 Diastolic blood pressure 76 mm[Hg] Violeta Ezekiel Hoy Work Phone: formerly [facility] 250 DO Work Phone: 07-13-2021 11:47-0400 Heart rate 66 /min Violeta Ezekiel Hoy Work Phone: formerly [facility] 250 DO Work Phone: 07-13-2021 11:47-0400 Systolic blood pressure 112 mm[Hg] Violeta Ezekiel Hoy Work Phone: formerly [facility] 250 DO Work Phone: Encounters Encounter Date Encounter Type Care Provider Facility Start: 03-15-2023 [facility] Start: 03-15-2023 End: 03-16-2023 ambulatory [facility] Start: 02-06-2023 ambulatory DEIDRE [facility] Start: 01-31-2023 End: 01-31-[address] [facility] Start: 01-31-2023 End: 01-31-2023 Office outpatient visit 15 minutes Corbin Ying DO Work Phone: [facility] Comment on above: Arteriosclerotic hea rt disease; S/P PTCA (percutaneous transluminal coronary angioplasty); ESRD (end stage renal disease) on dialysis ([facility]); Diabetes mellitus of other type without complication, unspecified whether detention insulin use ([facility]); Essential hypertension; Hyperlipidemia, unspecified hyperlipidemia type; Never smoked any substance Start: 01-18-2023 Encounter for other preprocedural examination [facility] Start: 01-18-2023 End: 01-18-2023 ambulatory [facility] Start: 01-16-2023 Encounter for other preprocedural examination [facility] Start: 01-15-2023 End: 01-15-2023 ambulatory [facility] Start: 01-09-2023 End: 01-10-2023 ambulatory [facility] Start: 10-16-2022 ambulatory [facility] Start: 10-02-2022 End: 10-02-2022 ambulatory [facility] Start: 08-16-2022 End: 08-17-2022 ambulatory Evelyn HerminiaElodia Alarcon Facility:[facility] Start: 08-16-2022 End: 08-16-2022 Patient encounter procedure Evelyn HerminiaElodia Dorian [facility] Start: 08-15-2022 Rx Renewal Violeta Alejo Work Phone: formerly [facility] 250 DO Work Phone: Start: 08-09-2022 End: 08-09-2022 ambulatory Alfredo Acosta Other [facility] [employer] Other Start: 08-09-2022 Office outpatient vi sit 25 minutes Alfredo Acosta [facility] Start: 07-30-2022 End: 07-31-2022 ambulatory Evelyn HerminiaElodia Alarcon Facility:[facility] Start: 07-30-2022 End: 07-30-2022 Patient encounter procedure Evelyn HerminiaElodia Dorian [facility] Start: 07-18-[address] Violeta Alejo Facility:[id number] Start: 07-12-2022 End: 07-20-2022 Evaluation and management of inpatient Fuentes Rodriguez Facility:[facility] Start: 07-12-2022 End: 07-13-2022 ambulatory Evelyn Alarcon Facility:[facility] Start: 07-12-2022 End: 07-17-2022 Pre-admission assessment Evelyn Alracon [facility] Start: 07-12-2022 End: 07-12-2022 Patient encounter procedure Evelyn Alarcon [facility] Start: 07-09-2022 End: 07-09-2022 Emergency department patient visit Adam Valero Lenard Facility:[facility] Start: 07-09-2022 End: 07-09-2022 Emergency department patient visit [facility] Anjum Rogersjuan josé [facility] Start: 07-02-2022 End: 07-03-2022 ambulatory Noelkeenan Jessica Alarcon Facility:[facility] Start: 06-29-2022 End: 06-29-2022 Emergency department patient visit Reji Azar Facility:[facility] Start: 06-26-[address] VIOLETA ALEJO . Facili ty:[facility] Start: 06-05-2022 End: 06-06-[address] VIOLETA ALEJO . Facility:[facility] Start: 05-17-2022 ambulatory UNKNOWN PROVIDER Facili ty:[facility] Start: 05-09-2022 End: 05-09-[address] VIOLETA ALEJO . Facility:[facility] Start: 05-08-2022 End: 05-09-2022 ambulatory LAUREN SCHWARZ Facility:[facility] Start: 04-12-2022 End: 04-13-2022 ambulatory LEANNE HUIZAR Facility:[facility] Start: 03-20-2022 End: 03-21-2022 ambulatory LAUREN SCHWARZ Facility:[facility] Start: 03-15-2022 End: 03-15-2022 ambulatory Noelkeenan Jessica Alarcon Facility:[facility] Start: 03-15-2022 End: 03-16-2022 ambulatory ASHOK ALARCON Facility:[facility] Start: 03-15-2022 End: 03-15-2022 Admission to same day surgery center Evelyn HopeElodia Dorian [facility] Start: 03-15-2022 End: 03-16-2022 ambulatory Evelyn Alarcon Facility:[facility] Start: 03-15-2022 End: 03-15-2022 Patient encounter procedure MARIELAPJ Leone DORIAN [facility] Start: 03-15-2022 End: 03-15-2022 Patient encounter procedure Evelyn HopeElodia Alarcon [facility] Start: 03-06-2022 End: 03-07-2022 ambulatory LEANNE HUIZAR Facility: Start: 02-27-2022 End: 02-28-[address] VIOLETA ALEJO . Facility: Start: 02-15-2022 End: 02-16-2022 ambulatory NATHEN LUCIA Facility: Start: 01-11-2022 End: 01-11-[address] VIOLETA ALEJO . Facility: Start: 01-11-2022 Office outpatient vi sit 15 minutes Violeta Alejo Work Phone: formerly [facility] 250 DO Work Phone: Start: 01-11-[address] Corbin Ying Facility: Start: 11-02-2021 End: 11-02-2021 ambulatory Noelkeenan HerminiaElodia Alarcon Facility:[facility] Start: 11-02-2021 End: 11-02-2021 Admission to same day surgery center Evelyn HopeElodia Alarcon [facility] Start: 10-26-2021 End: 10-27-2021 ambulatory Evelyn HerminiaElodia Alarcon Facility:[facility] Start: 10-26-2021 End: 10-26-2021 Patient encounter procedure Evelyn HerminiaElodia Alarcon [facility] Start: 10-25-2021 Rx Renewal Violeta Alejo Work Phone: formerly [facility] 250 DO Work Phone: Start: 08-28-2021 End: 08-28-2021 ambulatory PA SHIRIN MOTA . Facility: Start: 07-13-2021 Office outpatient vi sit 15 minutes Violeta Alejo Work Phone: formerly [facility] 250 DO Work Phone: Start: 06-04-2019 End: 06-05-2019 Patient encounter procedure VIOLETA ALEJO Facility:[facility] Procedures Date Procedure Procedure Detail Performing Clinician Start: 03-15-2023 Follow-up visit Follow-up DEIDRE SANDERSON Start: 01-31-2023 Aspartate aminotrans ferase [Enzymatic activity/volume] in Serum or Plasma CORBIN YING Start: 01-31-2023 Lipid panel CORBIN ZHENG Start: 01-31-2023 Alanine aminotransfe rase [Enzymatic activity/volume] in Serum or Plasma CORBIN YING Start: 07-16-2022 Arteriovenous fistul a (morphologic abnormality) Evelyn Dorian Start: 07-02-2022 Insertion of hemodia lysis catheter Adam Weinberg Start: 03-15-2022 Fistulography with contrast Noelkeenan Harveyan Start: 11-02-2021 Fluoroscopic fistulography Evelyn Alarcon Start: 08-04-2020 Fistulography with contrast Noelkeenan Dorian Start: 07-07-2020 Removal of catheter Moh keenan Dorian Comment on above: removal of hemodialy sis catheter removal of hemodialy sis catheter Start: 06-16-2020 Coagulation factor X I (substance) Evelyn Alarcon Comment on above: PROBATION AGENT of Left Fistula PROBATION AGENT of Left Fistula Start: 03-31-2020 Arteriovenous fistulization Evelyn Dorian Start: 08-06-2019 AV fistula recircula tion (observable entity) Evelyn Alarcon Comment on above: creation of av fistu la of left arm. creation of av fistu la of left arm. Cardiac catheterization Enoch Alejo Work Phone: Cholecystectomy Violeta esparza Work Phone: Cholecystectomy Evelyn Harveya n Colonoscopy [...] hyperlipidemia type Expected: 01/31/2023 (Approximate), Expires: 02/01/2024 [facility] Service Area Work Phone: Comment on above: Expected: 01/31/2023 (Approximate), Expi res: 02/01/2024 Start: 01-31-2023 End: 02-01-2024 Aspartate aminotransferase [Enzymatic activity/volume] in Serum or Plasma by With P-5'-P Aspartate Aminotransferase Lab Routine Arteriosclerotic heart disease Essential hypertension Hyperlipidemia, unspecified hyperlipidemia type Expected: 01/31/2023 (Approximate), Expires: 02/01/2024 [facility] Work Phone: Comment on above: Expected: 01/31/2023 (Approximate), Expi res: 02/01/2024 Start: 01-31-2023 End: 02-01-2024 Lipid 1996 panel - Serum or Plasma Lipid Panel Lab Routine Arteriosclerotic heart disease Essential hypertension Hyperlipidemia, unspecified hyperlipidemia type Expected: 01/31/2023 (Approximate), Expires: 02/01/2024 [facility] Work Phone: Comment on above: Expected: 01/31/2023 (Approximate), Expi res: 02/01/2024 Start: 01-15-2023 FUV, Provider: Corbin Ying, Status: Pen, Time: 10:10 AM FUV, Provider: Corbin Ying, Status: Pen, Time: 10:10 AM formerly [facility] [employer] 250 DO Work Phone: Start: 10-12-2022 Influenza vaccination Influenza Vaccine (#1) [facility] Start: 01-11-2022 FUV, Provider: Corbin Ying, Status: Pen, Time: 11:10 AM FUV, Provider: Corbin Ying, Status: Pen, Time: 11:10 AM formerly [facility] [employer] 250 DO Work Phone: Start: 10-20-2021 Echocardiography Echocardiogram [facility] Start: 03-28-2021 COVID-19 Vaccine (4 - Pfizer series) COVID-19 Vaccine (4 - Pfizer series) [facility] Start: 11-21-2005 Zoster Vaccines (1 of 2) Zoster Vaccines (1 of 2) [facility] Start: 11-21-1977 DTaP/Tdap/Td Vaccines (1 - Tdap) DTaP/Tdap/Td Vaccines (1 - Tdap) [facility] Start: 11-21-1974 Urine screening for protein Diabetes: Urine Protein Screening [facility] Start: 11-21-1973 Hepatitis C screening Hepatitis C Screening [facility] Start: 11-21-1965 Diabetic foot examination Diabetes: Foot Exam [facility] Start: 11-21-1965 Glaucoma screening Diabetes: Retinopathy Screening [facility] Start: 11-21-1961 Pneumococcal Vaccine: 65+ Years (1 - PCV) Pneumococcal Vaccine: 65+ Years (1 - PCV) [facility] Start: 1955 Creatinine measurement Creatinine Level [facility] Start: 1955 Hemoglobin A1c measurement Diabetes: Hemoglobin A1C [facility] Start: 1955 Lipid panel Lipid Panel [facility] Start: 1955 Medicare Annual Wellness Visit Medicare Annual Wellness Visit (AWV) [facility] Start: 1955 Potassium measurement Potassium Level [facility] Start: 1955 Screening for malignant neoplasm of colon [facility] Start: 1955 Thyroid stimulating hormone measurement TSH Level [facility] Immunizations Immunization Date Immunization Notes Care Provider Fa mukesh 01-31-2021 Pfizer-BioNTech COVID-19 Vacc 30 MCG/0.3ML Intramuscular Suspension Violeta Alejo Work Phone: [facility] 250 DO Work Phone: 07-26-2020 Pfizer-BioNTech COVID-19 Vacc 30 MCG/0.3ML Intramuscular Suspension Violeta Falcon [employer] [facility] Work Phone: 07-05-2020 Pfizer-BioNTech COVID-19 Vacc 30 MCG/0.3ML Intramuscular Suspension Violeta Alejo Work Phone: [facility] Payers Date Payer Category Payer Medicare MEDICARE MEDICAR E PART A AND B [id number] 2019-Present [address] [place] [address] [id number] 2018 Unknown [id number] 2015 Unknown [id number] 1959 Medicare [id number] 1955 Unknown [id number] 2.16.840.1.405670.3.579.2.647 1955 Unknown [id number] 2.16.840.1.744437.3.579.2.732 1955 Unknown [id number] 2.16.840.1.878491.3.579.2.593 1955 Unknown [id number] 2.16.840.1.604084.3.579.2.593 1955 Unknown [id number] 2.16.840.1.440360.3.579.2.593 1955 Unknown [id number] 2.16.840.1.429043.3.579.2.593 1955 Unknown [id number] 2.16.840.1.430788.3.579.2.593 1955 Unknown [id number] 2.16.840.1.788703.3.579.2.593 1955 Unknown [id number] 2.16.840.1.423716.3.579.2.593 1955 Unknown [id number] 2.16.840.1.450431.3.579.2.593 1955 Unknown [id number] 2.16.840.1.458825.3.579.2.593 1955 Unknown [id number] 2.16.840.1.705299.3.579.2.593 1955 Unknown [id number] 2.16.840.1.076182.3.579.2.593 1955 Unknown [id number] 2.16.840.1.113678.3.579.2.727 1955 Unknown [id number] 2.16.840.1.679829.3.579.2.727 1955 Unknown [id number] 2.16.840.1.381721.3.579.2.727 1955 Unknown [id number] 2.16.840.1.119839.3.579.2.72 1955 Unknown [id number] 2.16.840.1.916585.3.579.2.72 1955 Unknown [id number] 2.16.840.1.291801.3.579.2. 1955 Unknown [id number] 2.16.840.1.157920.3.579.2. 1955 Unknown [id number] 2.16.840.1.178870.3.579.2. 1955 Unknown [id number] 2.16.840.1.679134.3.579.2.727 1955 Unknown [id number] 2.16.840.1.194206.3.579.2.7 1955 Unknown [id number] 2.16.840.1.366152.3.579.2.7 1955 Unknown [id number] 2.16.840.1.628809.3.579.2. 1955 Unknown [id number] 2.16.840.1.396290.3.579.2.356 1955 Unknown [id number] 2.16.840.1.402973.3.579.2.356 1955 Unknown [id number] 2.16.840.1.681270.3.579.2.1244 Self-pay Self Pay [id number] Unknown Social History Date Type Detail Facility Tobacco smoking stat [facility] Unknown if ever smoked [facility] Start: 1955 Sex Assigned At Male F [facility] Start: 01-31-2023 Caffeine use Caffeine use [facility] 250 DO Work Phone: Comment on above: 2-3 times weekly- Co ffee. 1 pop daily; Start: 07-07-2020 End: 01-31-2023 Never smoked tobacco (finding) [facility] Start: 01-31-2023 Male [facility] Tobacco smoking status Never [facility] Tobacco [facility] Comment on above: denies Tobacco smoking status No Smokin g Status Entered [facility] Start: 01-31-2023 Tobacco use and exposure Smokeless tobacco non-user [facility] Work Phone: Start: 01-31-2023 Alcohol intake Lifetime non-d carl (finding) [facility] Work Phone: Start: 1955 Sex Assigned At Not on file [facility] Work Phone: Start: 01-21-2023 End: 01-31-2023 Exposure to SARS-CoV-2 (event) Not sure [facility] Medical Equipment Procedure Code Equipment Code Equipment [...] Assessment Result Facility 07-30-2022 Functional Status No [facility] 07-12-2022 Functional Status No [facility] 07-09-2022 Functional Status N/A [facility] 03-15-2022 Functional Status N/A [facility] 03-15-2022 Functional Status No [facility] 11-02-2021 Functional Status N/A [facility] 10-26-2021 No [facility] Clinical Notes 11-02-2021 to 02-06-2023 Corbin Ying DO - 01/31/2023 10:00 AM ESTPatient Instructions [...] visit: End stage renal disease on dialysis ([facility]) - [facility] Us Dialysis Fistula; Future -Surgical incision is [...] past 36 hour(s)). No follow-ups on file. [facility] 01-31-2023 History of Present illness [...] hypotension. He has a history of remote PCI/TILT TRAY DRIVER intervention of the LAD in 2019 with normalization of his LV function. In [...] ESRD (end stage renal disease) on dialysis ([facility]) 4. Diabetes mellitus of other type without complication, unspecified whether detention insulin use ([facility]) 5. Essential hypertension 6. Hyperlipidemia, unspecified hyperlipidemia type 7. Never smoked any substance documented in this encounter [facility] Work Phone: 01-31-2023 Instructions Sarita Hernandes CMA [...] of your visit. documented in this encounter [facility] Work Phone: 01-18-2023 Note Patient: Corbin Levar mckeon Procedure Summary Date: 01/18/23 Room / Location: [facility] OPERATING ROOM 06 / [facility] Operating Room Anesthesia Start: 1008 Anesthesia Stop: 1150 Procedure: Right Radial Cephalic Fistula Creation - CPT Codes 46621,03337,07131,99380 (Right: Arm Upper) Diagnosis: End stage renal disease on dialysis (CMS/HCC) Encounter for pre-operative examination (End stage renal disease on dialysis (CMS/HCC) [N18.6, Z99.2]) (Encounter for pre-operative examination [Z01.818]) Surgeons: Eevlyn Alarcon MD Responsible Provider: Leanne Chavez MD [...] per anesthesia protocol. No notable events documented. [facility] 01-18-2023 Note Airway Date/Time: 01/18/2023 10:16 AM Urgency: elective Airway not difficult General Information and Staff Patient location during procedure: OR Anesthesiologist: Leanne Chavez MD Resident/WAREHOUSE LOGISTICS COORDINATOR/CAA: Katerin Chung MD Performed: resident/WAREHOUSE LOGISTICS COORDINATOR/CAA Indications and Patient Condition Indications for airway [...] 23 Number of attempts at approach: 1 [facility] 01-18-2023 Note Patient: Corbin mckeon Procedure Information Date/Time: 01/18/23 1000 Procedure: Right Upper Extremity Fistula Creation - CPT Codes 59024,44202,47072,65649 (Right) Location: [facility] OPERATING ROOM 06 / [facility] Operating Room Surgeons: Evelyn Alarcon MD Relevant Problems /Renal (+) End stage renal disease on dialysis (CMS/HCC) Circulatory (+) H/O heart artery stent Clinical information reviewed: Allergies Meds History of cardiac stent in 2019. Now asymptomatic. Has had f/u with cards Renal failure after covid in Physical Exam Airway Mallampati: III TM distance: [...] Plan discussed with attending. Additional Equipment Requests [facility] 01-18-2023 Note Pre-operative Histor y [...] Hypothyroidism Myocardial infarction (CMS/HCC) Peripheral vascular disease ([facility]/HCC) Past Surgical History: Procedure Laterality Date AV [...] Phan MD PGY-4 Vascular Surgery Resident 01/18/23 [facility] 01-15-2023 Note Arteriovenous Fistul a [...] the patient was taken back to the Dietician placed in supine position appropriate cardiopulmonary except [...] present and scrubbed for the entire procedure. [facility] 01-10-[address] [facility] 01-09-2023 Note Subjective Patient ID: Corbin Murphy [...] balloon assisted maturation with Dr. Alarcon in lab systems analyst -Discussed the risks, benefits, alternatives of the procedure with the patient and time was alloted for all questions to be answered. Patient provided both verbal and written consent No diagnosis found. No orders of the defined types were placed in this encounter. No results found for this or any previous visit (from the past 36 hour(s)). No follow-ups on file. [facility] 10-16-2022 Note aSubjective Patient ID: [...] past 36 hour(s)). No follow-ups on file. [facility] 10-16-2022 Note aSubjective Patient ID: [...] without issues- [place] Review of Systems Neurological: Positive for numbness. [...] ESRD (end stage renal disease) on dialysis ([facility]) Vascular US upper extremity hemodialysis access duplex right #ESRD on HD using CVC currently with recent creation R RCAVF - hold off on cannulation as AVF matures -continue with HD via CVC - hand/bellhop service captain exercises demonstrated - US of AVF at 6-8 weeks and f/up at that time, sooner if needed [facility] 10-03-2022 Note Patient: Corbin mckeno Procedure Summary Date: 10/02/22 Room / Location: [facility] OPERATING ROOM 06 / [facility] Operating Room Anesthesia Start: 1705 Anesthesia Stop: 1846 Procedure: CREATION, RADIOCEPHALIC AV FISTULA (Right: Arm Lower) Diagnosis: (End stage renal disease) Surgeons: Evelyn Alarcon MD Responsible Provider: Petra Degroot MD Anesthesia Type: general ASA Status: 4 Anesthesia Type: general Vitals Value Taken Time BP 105/68 10/02/22 1859 Temp 36.2 ???C (97.2 ???F) 10/02/22 1844 Pulse 74 10/02/22 1859 Resp 18 10/02/22 1859 SpO2 95 % 10/02/22 1859 Anesthesia Post Evaluation Patient location during evaluation: bedside Patient participation: complete - patient participated Level of consciousness: awake and alert Pain score: 0 Pain management: adequate Airway patency: patent Cardiovascular status: acceptable Respiratory status: acceptable Hydration status: acceptable Patient is hemodynamically stable and is able to be discharged from PACU per anesthesia protocol. No notable events documented. [facility] 10-02-2022 Note Patient: Corbin mckeon Procedure Summary Date: 10/02/22 Room / Location: [facility] OPERATING ROOM 06 / [facility] Operating Room Anesthesia Start: 1705 Anesthesia Stop: Procedure: CREATION, RADIOCEPHALIC AV FISTULA (Right: Arm Lower) Diagnosis: (End stage renal disease) Surgeons: Evelyn Alarcon MD Responsible Provider: Petra Degroot MD Anesthesia Type: general ASA Status: 4 Anesthesia Post Transport Note Transport to: PACU O2 Route: room air Patient Monitor: direct observation Transport: uneventful Patient condition is: stable [facility] 10-02-2022 Note Airway Date/Time: 10/02/2022 5:21 PM Urgency: elective Airway not difficult General Information and Staff Patient location during procedure: OR Anesthesiologist: Petra Degroot MD Resident/WAREHOUSE LOGISTICS COORDINATOR/CAA: LATRELL Luciano Performed: resident/WAREHOUSE LOGISTICS COORDINATOR/CAA Indications and Patient Condition Indications for airway [...] fit tight but without resistance through cords/trachea [facility] 10-02-2022 Note Patient: Coribn mckeon Procedure Information Date/Time: 10/02/22 1430 Procedure: CREATION, AV FISTULA (Right) - start as last case Location: [facility] OPERATING ROOM 06 / [facility] Operating Room Surgeons: Evelyn Alarcon [...] with patient who. Plan discussed with resident, WAREHOUSE LOGISTICS COORDINATOR and CAA. Additional Equipment Requests [facility] 08-09-2022 Evaluation note Encounter Date [...] dialysis fistula, subsequent encounter (ICD-10 - T82.7XXD) [facility] Other [facility]:Result Comment: Electronically Signed By: Nathalie HAAS\.br\Date and Time Signed: 07/19/22 17:35 EDT\.br\Electronically Co-Signed By: Chandrakant LEW MD\.br\Date and Time Co-Signed: 07/19/2316:38 [id number] NotePT Evaluation done this date. Pt. with 1624 on AM-PAC this date. Very weak and fatigued. Difficulty standing upright to use FWW safely. Recommend SNF.[facility]-01-20[facility] JacksonComment on above: Result Comment: Electronically Signed By: Nathalie HAAS\.br\Date and Time Signed: 07/12/22 17:08 EDT\.br\Electronically Co-Signed By: Michael FISH, Fuentes Lemons\.br\Date and Time Co-Signed: 07/12/22 17:46 [id number] Hospital Discharge instructions Patient Education 07/09/2022 19:31:06 [...] Follow these instructions at home: Medicines Take kwlv-dmn-cicfiju and prescription medicines only as told by [...] provider. Document Revised: 07/24/2021 Document Reviewed: 07/24/2021 [employer] Patient Education 2022 [employer]. Follow Up Care 07/09/2022 17:23:13 With:Evelyn Alarcon Address: [address] [place] [address]- Business (1) When:07/12/2022 18:59:06 Comments:Follow-up with Dr. Alarcon for further evaluation of your fistula. With:Violeta Alejo Address: [facility] [place] [address]- Business (1) When:07/12/2022 18:58:50 Comments:Follow-up with your primary care provider in 3 to 5 days. If symptoms worsen, do not improve, or new symptoms arise please report back to emergency department for further evaluation. [address]28-2023 [facility]Result Comment: Electronically Signed By: Pedro ARAUZ MD\.br\Date and Time Signed: 07/08/22 09:40 [id number] Note [id number]:127[facility]:Result Comment: Electronically Signed By: Pedro ARAUZ MD\.br\Date and Time Signed: 07/02/22 17:10 [id number]:127 [facility]02-02-2023 Hospital Discharge instructions Patient Education 03/15/2022 14:06:07 [...] relax (sedative) during your procedure. Medicines Take lxhv-kmr-kipkwsv and prescription medicines only as told by your health care provider. Puncture site care Follow instructions from your health care provider about how to take care of the site where catheters were inserted. Make sure you: ?Wash your hands with soap and water before you change your bandage (dressing). If soap and water are not available, use hand exceptional children teacher. ?Change your dressing as told by your [...] told by your health care provider. Take hvfy-blm-aqxrsrl and prescription medicines only as told by [...] 06/14/2014 Document Revised: 02/28/2018 Document Reviewed: 02/28/2018 [employer] Patient Education 2020 [employer]. Follow Up Care 03/15/2022 11:30:19 With:Evelyn Alarcon Address: [address] [place], [place] [address] [address]- Business (1) When: Unknown Comments:as needed [facility]02-02-2023 Evaluation + Plan noteExtracted from: [...] Oxygen Protocol Patient Education Saline Lock Insert [facility]09-23-2022 Note [id number]:127[facility] 11-02-2021 Hospital Discharge instructions Patient Education [...] relax (sedative) during your procedure. Medicines Take fsld-rqe-nlkiiwu and prescription medicines only as told by your health care provider. Puncture site care Follow instructions from your health care provider about how to take care of the site where catheters were inserted. Make sure you: ?Wash your hands with soap and water before you change your bandage (dressing). If soap and water are not available, use hand exceptional children teacher. ?Change your dressing as told by your [...] told by your health care provider. Take xikk-znt-mmyaocf and prescription medicines only as told by [...] 06/14/2014 Document Revised: 02/28/2018 Document Reviewed: 02/28/2018 [employer] Patient Education 2020 [employer]. Follow Up Care 10/27/2021 08:22:09 With:Evelyn Alarcon Address: [address] [place] [address]- Business (1) When: Unknown Comments:Call for followup appointment if needed With:Violeta Alejo Address: [address] [place] [phone]- Business (1) When: Unknown [facility] No data available for this section [facility] Future Appointments Appointment Date:08/06/2022 10:00:00 AM Scheduled Provider:Evelyn Alarcon MD Location:.[facility] Appointment Type:[facility]) [facility] Future Appointments Appointment Date:07/16/2022 12:00:00 PM Scheduled Provider: Location:[facility] Appointment Type:[facility]gery FT [facility]* Diagnosis Arteriosclerotic heart disease Coronary atherosclerosis of unspecified type of vessel, [place] or graft S/P PTCA (percutaneous transluminal coronary angioplasty) Postsurgical percutaneous transluminal coronary angioplasty status ESRD (end stage renal disease) on dialysis ([facility]) End stage renal disease Diabetes mellitus of other type without complication, unspecified whether detention insulin use ([facility]) Essential hypertension Unspecified essential hypertension Hyperlipidemia, unspecified hyperlipidemia type Never smoked any substance documented in this encounter [facility] Work Phone: History general Narrative - Reported* [...] LEG 2010 Hospitalization History Heart attack 04-16-18 A-TEX Other Hospital Discharge instructions No data available for this section [facility] No data available for this section [facility] CenterReason for referral (narrative)* Consultation (Routine) - Authorized Specialty Diagnoses / Procedures Referred By Khadijah t Referred To Contact Cardiology Diagnoses Arteriosclerotic heart disease Procedures Follow Up In Cardiology Corbin Ying DO [address] [facility], [address] [address] Corbin Ying DO [address] [facility], [address] [place] [address] Referral ID Status Reason Start Date Expiration Date V isits Requested Visits Authorized [id number] Authorized 01/31/2023 01/31/2024 1 1 [facility] Work Phone: Summary Purpose Family History No [...] COVID illness in 2019. He underwent anterior SD with PCI chronic total occlusion of the proximal through mid LAD x2 drug-eluting stents in March 2018; follow-up echocardiogram revealed low normal left ventricular function with ejection fraction of 50% in September 2018. In March 2020 he underwent COVID infection with prolonged intubation and hospitalization in [place] with multiorgan failure details of which have [...] He has a history of ASHD with TILT TRAY DRIVER intervention of the LAD in April 2018 [...] section and content) DATE CREATED AUTHOR 09/03/2019 [facility] DATE CREATED AUTHOR AUTHOR'S ORGANIZ ATION 05/19/2020 [facility] DATE CREATED AUTHOR AUTHOR'S ORGANIZ ATION 10/21/2020 [facility] DATE CREATED AUTHOR AUTHOR'S ORGANIZ ATION 01/12/2022 [employer] DATE CREATED AUTHOR AUTHOR'S ORGANIZ ATION 02/03/2022 [facility] DATE CREATED AUTHOR AUTHOR'S ORGANIZ ATION 05/19/2022 [facility] DATE CREATED AUTHOR AUTHOR'S ORGANIZ ATION 06/20/2022 [facility] DATE CREATED AUTHOR AUTHOR'S ORGANIZ ATION 08/18/2022 [facility] DATE CREATED AUTHOR AUTHOR'S ORGANIZ ATION 11/24/2022 [facility] DATE CREATED AUTHOR AUTHOR'S ORGANIZ ATION 02/03/2023 [facility] DATE CREATED AUTHOR AUTHOR'S ORGANIZ ATION 03/16/2023 [facility] Care Team (unrecognized sect ion and content) Skidder Runner Relationship Specialty Start Date End Date Violeta Alejo MD [address] [facility] [place] [id number] PCP - General 05/22/18 REASON FOR VISIT [...] BE BASED ON THE PRIMARY CLINICAL RECORDS. [employer] [facility]. provides no warranty or guarantee of the accuracy or completeness of information in this document.
== END 2023-03-19 13:31 | disposition home or self-care (01) ==
LOC: WC 13:30
PROVIDERS: PCP Family Medicine; Visit Provider Podiatrist Foot & Ankle Surgery
DX: E11.621 Type 2 diabetes mellitus with foot ulcer (principal); L97.511 Non-pressure chronic ulcer of other part of right foot limited to breakdown of skin; L97.521 Non-pressure chronic ulcer of other part of left foot limited to breakdown of skin; L97.411 Non-pressure chronic ulcer of right heel and midfoot limited to breakdown of skin
CPT/HCPCS: 11042

== ENCOUNTER 2023-04-02 14:56 | Outpatient (OUT) | payer MEDICARE, SELFPAY | END 2023-04-02 14:57 | disposition home or self-care (01) | LOC: WC 14:56 | PROVIDERS: PCP Family Medicine; Visit Provider Podiatrist Foot & Ankle Surgery | DX: E11.621 Type 2 diabetes mellitus with foot ulcer (principal); L97.511 Non-pressure chronic ulcer of other part of right foot limited to breakdown of skin; L97.521 Non-pressure chronic ulcer of other part of left foot limited to breakdown of skin; L97.411 Non-pressure chronic ulcer of right heel and midfoot limited to breakdown of skin | CPT/HCPCS: 11042 ==

== ENCOUNTER 2023-04-23 09:55 | Outpatient (REF) | payer MEDICARE, SELFPAY ==
[2023-04-23 10:23] LABS: C Reactive Protein 2.85 mg/dL (<=0.50)
== END 2023-04-23 09:56 | disposition home or self-care (01) ==
LOC: LAB 09:55
PROVIDERS: PCP Family Medicine; Visit Provider Internal Medicine Infectious Disease
DX: M86.9 Osteomyelitis, unspecified (principal)
CPT/HCPCS: 36415; 86140

== ENCOUNTER 2023-04-30 15:14 | Outpatient (OUT) | payer MEDICARE, SELFPAY | END 2023-04-30 15:15 | disposition home or self-care (01) | LOC: WC 15:14 | PROVIDERS: PCP Family Medicine; Visit Provider Podiatrist Foot & Ankle Surgery | DX: E11.621 Type 2 diabetes mellitus with foot ulcer (principal); L97.511 Non-pressure chronic ulcer of other part of right foot limited to breakdown of skin; L97.521 Non-pressure chronic ulcer of other part of left foot limited to breakdown of skin | CPT/HCPCS: 11042 ==

== ENCOUNTER 2023-05-02 11:58 | Outpatient (REF) | payer MEDICARE, SELFPAY ==
[2023-05-02 12:21] LABS: C Reactive Protein 2.99 mg/dL (<=0.50)
== END 2023-05-02 11:59 | disposition home or self-care (01) ==
LOC: LAB 11:58
PROVIDERS: PCP Family Medicine; Visit Provider Internal Medicine Infectious Disease
DX: M86.9 Osteomyelitis, unspecified (principal)
CPT/HCPCS: 36415; 86140

== ENCOUNTER 2023-05-07 10:32 | Outpatient (REF) | payer MEDICARE, SELFPAY ==
--- OUTSIDE RECORDS SUMMARY | 2023-05-07 10:39 | XMS_ITS | CCD ---
Author Organization [facility] Care Team Providers Care Correctional Lieutenant Name Role Phone VIOLETA ALEJO Referring Unavailable VIOLETA ALEJO Primary Care Unavailable Laly Amaro Attending Unavailable Laly Amaro Admitting Unavailable Violeta Alejo Unavailable Unavailable Unavailable Violeta Alejo Primary Care Physician PROVIDER, UNKNOWN Attending Unavailable PROVIDER, UNKNOWN Admitting Unavailable MELO ., DR MCDANIEL Primary Care Unavailable FRANKYANDERLAUREN Attending Unavailable HIGHLANDER, PETER D Admitting Unavailable HIGHLANDER, PETER D Admitting Unavailable HIGHLANDER, PETER D Attending Unavailable HOY ., DR MCDANIEL Primary Care Unavailable LEANNE HUIZAR Attending Unavailable GAYE, LEANNE Admitting Unavailable HOY ., DR MCDANIEL Primary Care Unavailable HIGHLANDER, PETER D Admitting Unavailable HIGHLANDER, PETER D Attending Unavailable HOY ., DR MCDANIEL Primary Care Unavailable HOY ., DR MCDANIEL Primary Care Unavailable FRANKYANDER, PETER D Admitting Unavailable HIGHLANDER, PETER D Attending Unavailable HOY ., DR MCDANIEL Primary Care Unavailable HIGHLANDER PETER D Admitting Unavailable HIGHLANDERLAUREN D Attending Unavailable NATHEN LUCIA Consulting Unavailable GAYE, LEANNE Attending Unavailable HOY ., DR MCDANIEL Primary Care Unavailable LEANNE HUIZAR Admitting Unavailable GAYE, LEANNE Consulting Unavailable HOY ., DR MCDANIEL Admitting Unavailable HOY ., DR MCDANIEL Attending Unavailable HOY ., DR MCDANIEL Consulting Unavailable HOY ., DR MCDANIEL Primary Care Unavailable HOY ., DR MCDANIEL Admitting Unavailable HOY ., DR MCDANIEL Attending Unavailable HOY ., DR MCDANIEL Consulting Unavailable HOY ., DR MCDANIEL Primary Care Unavailable GAYE, LEANNE Attending Unavailable GAYE, LEANNE Consulting Unavailable LEANNE HUIZAR Admitting Unavailable MELO [...] F. Referring Unavailable Fournier, Jatin Consulting Unavailable AMIR, Hasan Attending Unavailable Fournier, Jatin Consulting Unavailable Fournier, [...] NONE, XXXX Referring Unavailable Alfredo Acosta Unavailable Melo, Dr. Violeta Fuentes Primary Care Unavail able Stepan, Dr. Corbin Roberts Attending Unava finesse Ying, Dr. Corbin Roberts Referring Unava finesse Alejo, Dr. Violeta Fuentes Primary Care Unavail Violeta Robin MD Primary Care Provider 1( [phone] CORBIN YING Attending Unavailable VIOLETA ALEJO Primary Care Unavailable SFAELARI, DEIDRE Attending Unavailable SFAELOS, DEIDRE Attending Unavailable SFAELOS, DEIDRE Attending Unavailable DORIAN, MOHAMED Attending Unavailable DORIAN, MOHAMED Admitting Unavailable DORIAN, MOHAMED Attending Unavailable DORIAN, MOHAMED Admitting Unavailable DORIAN, MOHAMED Attending Unavailable DORIAN, MOHAMED Admitting Unavailable ESPINOZA, ROSANNE Attending Unavailable CLARISSEELARI, DEIDRE Referring Unavailable ESPINOZALOR SPIVEYEN Referring Unavailable Gabriel Gould Admitting Unavailable Hilario Chaney Consulting Unavailable Violeta Alejo Primary Care Unavailable Alon Santiago Attending Unavailable Guicho Chun Consulting UnavailAlfredo Albarran Consulting Unavailable Jayla Win Consulting Unavailable Unavailable Unavailable Unavailable Allergies Allergy Classification Reported Allergen(s) Allergy Type Date of Onset Reaction(s) Facility (6 sources) Ticagrelor; Translations: [ticagrelor] Drug Allergy 0 Headache, Nausea/vomiting [facility] (14 sources) Ticagrelor; Translations: [ticagrelor] Drug Allergy 0 Unknown (qualifier value) [facility] Repository (5 sources) Ticagrelor; Translations: [Brilinta TABS] Drug Allergy Nausea, Headache, Other [facility] DO Work Phone: (11 sources) Coban Bandage; Translations: [Coban Bandage] Drug allergy Eruption of skin (disorder) [facility] (4 sources) Angiotensin Converting Enzyme (Gomez) Inhibitors; Translations: [GOMEZ Inhibitors] Allergy to drug (finding) 3 Hypotension [place] [address] Repository (3 sources) Beta-Adrenergic Joi; Translations: [Beta Adrenergic Blockers] Allergy to drug (finding) Hypotension [facility] [place] [facility] DO Work Phone: (3 sources) Bandages MISC; Translations: [Bandages MISC] Allergy to drug (finding) Rash -Located Within [facility] DO Work Phone: (1 source) Angiotensin-conv erting enzyme inhibitor agent Propensity to adverse reactions 3 Other [facility] Work Phone: (2 sources) Selective beta-2 adrenoceptor stimulants; Translations: [BETA-ADRENERGIC AGENTS] Propensity to adverse reactions 3 Other [facility] Work Phone: (1 source) OTHER; Translations: [OTHER] Propensity to adverse reactions (disorder) 3 [facility] Repository Medications Current Medications Medication Drug Class(es) [...] q12hr, # 20 cap(s), Refills(s) 0, Pharmacy: [facility]/pharmacy #[id number], 178, cm, 07/09/22 17:32:00 EDT, [...] Corticosteroid Start: 12-08-2018 FreeStyle Bre 14 Day [place] - (1 source) Start: 04-15-2018 Freestyle Bre [...] 5 mL 100 unit(s), IV, q24hr, Follow [facility] PICC line flushing policy, # [...] Active Problems Problem Classification Problem Date Documented Date Episodic/Chronic Acute myocardial infarction (11 sources) Myocardial infarction in recovery phase; Translations: [Acute non-ST segment elevation myocardial infarction] Onset: 9 07-09-2019 Chronic Administrative/social admission (2 sources) Reduced mobility; Translations: [Patient encounter status] Episodic Asthma (1 source) Unspecified asthma, uncomplicated; Translations: [UNSPECIFIED ASTHMA UNCOMPLICATED] Onset: 2 Chronic Bacterial infection; unspecified site (3 sources) Bacteremia; Translations: [Methicillin resistant Staphylococcus aureus infection as the cause of diseases classified elsewhere] Onset: 4 Episodic Cardiac dysrhythmias (6 sources) Ventricular premature beats; Translations: [Other premature beats] Onset: 3 12-03-2022 Chronic Cataract (10 sources) Pseudophakia Onset: 9 07-09-2019 Chronic Chronic kidney disease (20 sources) Chronic kidney disease; Translations: [End stage renal failure on dialysis] Onset: 2 Chronic Chronic ulcer of skin (7 sources) Pressure ulcer stage 2; Translations: [Non-pressure [...] [Coronary atherosclerosis of unspecified type of vessel, [place] or graft] Onset: 9 07-09-2019 Chronic Coronary atherosclerosis and other heart disease (6 sources) Patient post percutaneous transluminal coronary angioplasty; Translations: [Percutaneous transluminal coronary angioplasty status] Onset: 3 01-31-2023 Episodic Deficiency and other anemia (1 source) Anemia in chronic kidney disease; Translations: [Anemia in chronic kidney disease] Onset: 4 Chronic Deficiency and other anemia (16 sources) Anemia; [...] [Unspecified essential hypertension] Onset: 9 07-09-2019 Chronic Fluid and electrolyte disorders (1 source) Hyperkalemia; Translations: [Hyperkalemia] Onset: 4 Episodic Genitourinary symptoms and ill-defined conditions (11 sources) Dysuria; Translations: [Albuminuria ] Onset: 9 07-09-2019 Episodic Hypertension with complications and secondary hypertension (3 sources) Hypertensive chronic kidney disease with stage 5 chronic kidney disease or end stage renal disease; Translations: [Hypertensive renal disease] Onset: 2 Chronic Infective arthritis and osteomyelitis (except that caused by tuberculosis or sexually transmitted disease) (2 sources) Osteomyelitis, unspecified; Translations: [Other acute osteomyelitis, left ankle and foot] Onset: 4 Chronic Infective arthritis and osteomyelitis (except that caused by tuberculosis or sexually transmitted disease) (1 source) Pyogenic arthritis, unspecified; Translations: [Pyogenic arthritis, unspecified] Onset: 4 Episodic Nutritional deficiencies (1 source) Vitamin D deficiency; Translations: [Vitamin D deficiency, unspecified] Chronic Other aftercare (1 source) Surgical follow-up; Translations: [Encounter for other specified surgical aftercare] Onset: 3 Episodic Other aftercare (1 source) Long-term current use of insulin; Translations: [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] Episodic Other and ill-defined heart disease (10 sources) Left ventricular hypertrophy Onset: 9 07-09-2019 Chronic Other circulatory disease (2 sources) Arteriovenous fistula, acquired; Translations: [Arteriovenous fistula, acquired] Onset: 3 Chronic Other diseases of kidney and ureters (1 source) Secondary hyperparathyroidism of renal origin; Translations: [Secondary hyperparathyroidism of renal origin] Onset: 4 Chronic Other nervous system disorders (2 sources) Other acute postprocedural pain; Translations: [Other acute postprocedural pain] Onset: 3 Episodic Other nutritional; endocrine; and metabolic disorders (8 sources) Obesity; Translations: [Obesity, unspecified] Chronic Other nutritional; endocrine; and metabolic disorders (2 sources) Obesity, unspecified; Translations: [OBESITY UNSPECIFIED] Onset: 3 [...] 01-31-2023 Episodic Skin and subcutaneous tissue infections (7 sources) Cellulitis, unspecified; Translations: [Cellulitis of left lower limb] Onset: 2 Episodic Thyroid disorders (5 sources) [...] 05-06-2018 07-09-2019 Episodic Other aftercare (1 source) 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; Translations: [[facility] CURRENT USE OF INSULIN] Onset: 08-29-2021 Episodic Other aftercare (1 source) 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; Translations: [OTH 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 OPERATOR CURRENT DRUG THERAPY] Onset: 08-29-2021 Episodic Other aftercare (1 source) half-way (current) use of aspirin; Translations: [[facility] CURRENT USE OF ASPIRIN] Onset: 08-29-2021 Episodic [...] Test Name Value Interpretation Reference Range Facility Basic Metabolic Panelon Anion gap [Moles/Vol] 12.3 mmol/L Normal 6.0-15.0 [facility] Comment on above: Performed By: #### B MP #### [facility] [address] Calcium [Mass/Vol] 9.0 mg/dL Normal 8.6-10.3 [facility] Comment on above: Performed By: #### B MP #### [facility] [address] Chloride [Moles/Vol] 97 mmol/L Low 98-107 [facility] Comment on above: Performed By: #### B MP #### [facility] [address] CO2 [Moles/Vol] 30.1 mmol/L Normal 21.0-31.0 [facility] Comment on above: Performed By: #### B MP #### [facility] [address] [place] [address] [place] Creatinine [Mass/Vol] 6.70 mg/dL Significant change up 0.70-1.30 [facility] Comment on above: Performed By: #### B MP #### [facility] [address] [place] [address] [place] Creatinine Clr Calc Pharmacy 13.63 Normal [facility] Comment on above: Result Comment: PERF ORMED BY: [place] [address] PATHOLOGIST DISTRICT DIRECTOR DEAN MWCILLIAMS M.D. Performed By: #### B MP #### [place] [address] [place] GFR/1.73 sq M.predicted MDRD (S/P/Bld) [Vol rate/Area] 8.416 mL/min/{1.73_m2} Normal [facility] Comment on above: Performed By: #### B MP #### [address] Glucose [Mass/Vol] 218 mg/dL Significant change up 70-100 [facility] Comment on above: Result Comment: [facility] Glucose Reference Range is dependent on time and content of last meal. Glucose of more than 200 mg/dL in a nonstressed, ambulatory subject supports the diagnosis of Diabetes Mellitus. ADA recommended reference range Performed By: #### B MP #### [address] Potassium [Moles/Vol] 5.4 mmol/L High 3.5-5.1 [facility] Comment on above: Performed By: #### B MP #### [address] Sodium [Moles/Vol] 134 mmol/L Low 136-145 [facility] Comment on above: Performed By: #### B MP #### [address] Urea nitrogen [Mass/Vol] 22 mg/dL Normal 7-25 [facility] Comment on above: Performed By: #### B MP #### [place] [address] [place] ECG 12 lead ECGon 04-16-2023 ECG 12 lead ECG [facility] [place] [address] [place] [address] Electrocardiograph Report Signed Patient: Corbin Murphy MR#: [id number] : 1955 Acct:[id number] Age/Sex: 67 / M ADM Date: 04/09/23 Loc: Room: [address] [place] [address] Type: DIS IN Attending Dr: Alon Santiago MD Ordering Provider: Alon Santiago MD Date of Service: 04/16/2307/04/499 ECG/ECG 12 lead ECG: PVCs, bigeminy, hyperkalemia Copies to: Test Reason : Blood Pressure : / mmHG Vent. Rate : 069 BPM Atrial Rate : 031 BPM P-R Int : 166 ms QRS Dur : 104 ms QT Int : 392 ms P-R-T Axes : 010 035 039 degrees QTc Int : 420 ms Marked sinus bradycardia with frequent premature ventricular complexes and fusion complexes Abnormal ECG When compared with ECG of 13-APR-2023 06:15, fusion complexes are now present Confirmed by Jonas Gonzalez ([id number]) on 04/16/2023 11:25:25 PM Referred By: Electronically Signed By:Jonas Gonzalez Transcribed By: MUS Signed By Jonas Gonzalez MD 04/16/232324 Normal [facility] Glucose Poct Glucometerson 0 04-16-2023 Glucose [Mass/Vol] 188 mg/dL Normal [facility] Comment on above: Result Comment: [facility] Glucose Reference Range is dependent on time and content of last meal. Glucose of more than 200 mg/dL in a nonstressed, ambulatory subject supports the diagnosis of Diabetes Mellitus. PERFORMED BY: [place] [address] PATHOLOGIST DISTRICT DIRECTOR DEAN MCWILLIAMS M.D. Performed By: #### P P #### [address] Commemt1 Glu2: Cleaned Meter Normal [facility] Comment on above: Result Comment: PERF ORMED BY: [place] [address] PATHOLOGIST DISTRICT DIRECTOR DEAN MCWILLIAMS M.D. Performed By: #### G LULS #### Point of Care testing , Glucose [Mass/Vol] 244 mg/dL Normal [facility] Comment on above: Result Comment: [facility] Glucose Reference Range is dependent on time and content of last meal. Glucose of more than 200 mg/dL in a nonstressed, ambulatory subject supports the diagnosis of Diabetes Mellitus. Performed By: #### G JOSHLS #### Point of Care testing , Basic Metabolic Panelon 0 Anion gap [Moles/Vol] 15.8 mmol/L High 6.0-15.0 [facility] Comment on above: Performed By: #### G JOSHLS #### Point of Care testing , Calcium [Mass/Vol] 9.3 mg/dL Normal 8.6-10.3 [facility] Comment on above: Performed By: #### G JOSHLS #### Point of Care testing , Chloride [Moles/Vol] 98 mmol/L Normal 98-107 [facility] Comment on above: Performed By: #### G JOSHLS #### Point of Care testing , CO2 [Moles/Vol] 25.5 mmol/L Normal 21.0-31.0 [facility] Comment on above: Performed By: #### G JOSHLS #### Point of Care testing , Creatinine [Mass/Vol] 10.23 mg/dL High 0.70-1.30 [facility] Comment on above: Performed By: #### G JOSHLS #### Point of Care testing , Creatinine Clr Calc Pharmacy 8.89 [facility] Comment on above: Performed By: #### G LULS #### Point of Care testing , GFR/1.73 sq M.predicted MDRD (S/P/Bld) [Vol rate/Area] 5.065 mL/min/{1.73_m2} [facility] Comment on above: Performed By: #### G LULS #### Point of Care testing , Glucose [Mass/Vol] 98 mg/dL Normal 70-100 [facility] Comment on above: Result Comment: [place] Glucose Reference Range is dependent on time and content of last meal. Glucose of more than 200 mg/dL in a nonstressed, ambulatory subject supports the diagnosis of Diabetes Mellitus. ADA recommended reference range Performed By: #### G LULS #### Point of Care testing , Potassium [Moles/Vol] 5.3 mmol/L High 3.5-5.1 [facility] Comment on above: Performed By: #### G LULS #### Point of Care testing , Sodium [Moles/Vol] 134 mmol/L Low 136-145 [facility] Comment on above: Performed By: #### G LULS #### Point of Care testing , Urea nitrogen [Mass/Vol] 37 mg/dL High 7-25 [facility] Comment on above: Performed By: #### G LULS #### Point of Care testing , C-Reactive Proteinon 024 C-Reactive Protein 4.2 mg/dL High 0.0-0.5 [facility] Comment on above: Result Comment: PERF ORMED BY: [place] [address] PATHOLOGIST DISTRICT DIRECTOR DEAN MCWILLIAMS M.D. Performed By: #### G LULS #### Point of Care testing , Coagulation Profileon 2023 aPTT Coag (Bld) [Time] 28.3 s Normal 25.1-36.5 [facility] Comment on above: Result Comment: A he matocrit value greater than 55% may lead to inaccurate results in coagulation testing. Patients having hematocrit values >55% require a special collection tube for coagulation studies. Please contact the laboratory at [phone] for redraw instructions. PERFORMED BY: [place] [address] PATHOLOGIST DISTRICT DIRECTOR DEAN MCWILLIAMS M.D. Performed By: #### P P #### [address] INR Coag (PPP) [Relative time] 0.9 {INR} Normal [facility] Comment on above: Result Comment: INR Therapeutic Range A) Pre- and Peroperative OAT started two weeks before surgery. NOT HIP SURGERY: 1.5 - 2.5 HIP SURGERY: 2 - 3 B) Primary and secondary prevention of venous THROMBOSIS: 2 - 3 C) Active venous thrombosis, pulmonary embolism and prevention of recurrent venous thrombosis: 2 - 3 D) Prevention of arterial thromboembolism including patients with mechanical heart valves: 3 - 4.5 Performed By: #### P P #### [facility] [address] PT Coag (PPP) [Time] 11.0 s Normal 9.0-12.9 [facility] Comment on above: Result Comment: A he matocrit value greater than 55% may lead to inaccurate results in coagulation testing. Patients having hematocrit values >55% require a special collection tube for coagulation studies. Please contact the laboratory at [phone] for redraw instructions. Performed By: #### P P #### [address] Glucose Poct Glucometerson 0 04-15-2023 Commemt1 Glu2: Cleaned Meter [facility] Comment on above: Result Comment: PERF ORMED BY: [place] [address] PATHOLOGIST DISTRICT DIRECTOR DEAN MCWILLIAMS M.D. Performed By: #### P P #### [address] Glucose [Mass/Vol] 224 mg/dL Normal [facility] Comment on above: Result Comment: [place] om Glucose Reference Range is dependent on time and content of last meal. Glucose of more than 200 mg/dL in a nonstressed, ambulatory subject supports the diagnosis of Diabetes Mellitus. Performed By: #### P P #### [address] Commemt1 Glu2: Cleaned Meter Normal [facility] Comment on above: Result Comment: PERF ORMED BY: [facility] [address] [place] [address] PATHOLOGIST DISTRICT DIRECTOR DEAN MCWILLIAMS M.D. Performed By: #### G LULS #### Point of Care testing , Glucose [Mass/Vol] 197 mg/dL Normal [facility] Comment on above: Result Comment: [place] om Glucose Reference Range is dependent on time and content of last meal. Glucose of more than 200 mg/dL in a nonstressed, ambulatory subject supports the diagnosis of Diabetes Mellitus. Performed By: #### G LULS #### Point of Care testing , Glucose [Mass/Vol] 101 mg/dL Normal [facility] Comment on above: Result Comment: [facility] Glucose Reference Range is dependent on time and content of last meal. Glucose of more than 200 mg/dL in a nonstressed, ambulatory subject supports the diagnosis of Diabetes Mellitus. PERFORMED BY: [place] [address] PATHOLOGIST DISTRICT DIRECTOR DEAN MCWILLIAMS M.D. Performed By: #### G DARLENE #### Point of Care testing , Hemogram CBC Without Diffon 04-15-2023 Erythrocyte distribution width (RBC) [Ratio] 15.4 % High 12.0-14.8 [facility] Comment on above: Performed By: #### P P #### [address] Hematocrit (Bld) [Volume fraction] 29.4 % Low 38.8-50.0 [facility] Comment on above: Performed By: #### P P #### [address] Hemoglobin (Bld) [Mass/Vol] 9.9 g/dL Low 13.0-17.0 [facility] Comment on above: Performed By: #### P P #### [address] MCH (RBC) [Entitic mass] 31.0 pg Normal 27.5-35.2 [facility] Comment on above: Performed By: #### P P #### [address] MCV (RBC) [Entitic vol] 91.8 fL Normal 83.5-101 [facility] Comment on above: Performed By: #### P P #### [address] Mean Corpuscular HGB Conc 33.8 g/dL Normal 32.5-35.6 [facility] Comment on above: Performed By: #### P P #### [address] Platelet mean volume (Bld) [Entitic vol] 7.6 fL Normal 6.6-10.1 [facility] Comment on above: Result Comment: PERF ORMED BY: [place] [address] PATHOLOGIST DISTRICT DIRECTOR DEAN MCWILLIAMS M.D. Performed By: #### P P #### [address] Platelets (Bld) [#/Vol] 246 10*3/uL Normal 150-450 [facility] Comment on above: Performed By: #### P P #### [address] RBC (Bld) [#/Vol] 3.20 10*6/uL Low 3.90-5.60 [facility] Comment on above: Performed By: #### P P #### [address] WBC (Bld) [#/Vol] 6.7 10*3/uL Normal 4.1-10.5 [facility] Comment on above: Performed By: #### P P #### [address] Magnesiumon 04-15-2023 Magnesium [Mass/Vol] 2.2 mg/dL Normal 1.9-2.7 [facility] Comment on above: Result Comment: PERF ORMED BY: [place] [address] PATHOLOGIST DISTRICT DIRECTOR DEAN MCWILLIAMS M.D. Performed By: #### G LULS #### Point of Care testing , Glucose Poct Glucometerson 0 04-14-2023 Glucose [Mass/Vol] 201 mg/dL Normal [facility] Comment on above: Result Comment: [place] Glucose Reference Range is dependent on time and content of last meal. Glucose of more than 200 mg/dL in a nonstressed, ambulatory subject supports the diagnosis of Diabetes Mellitus. PERFORMED BY: [address] [place] [address] PATHOLOGIST DISTRICT DIRECTOR DEAN MCWILLIAMS M.D. Performed By: #### G LULS #### Point of Care testing , Glucose [Mass/Vol] 182 mg/dL Normal [facility] Comment on above: Result Comment: [place] om Glucose Reference Range is dependent on time and content of last meal. Glucose of more than 200 mg/dL in a nonstressed, ambulatory subject supports the diagnosis of Diabetes Mellitus. PERFORMED BY: [address] [place] [address] PATHOLOGIST DISTRICT DIRECTOR DEAN MCWILLIAMS M.D. Performed By: #### G LULS #### Point of Care testing , Glucose [Mass/Vol] 267 mg/dL Normal [facility] Comment on above: Result Comment: [place] om Glucose Reference Range is dependent on time and content of last meal. Glucose of more than 200 mg/dL in a nonstressed, ambulatory subject supports the diagnosis of Diabetes Mellitus. PERFORMED BY: [address] [address] PATHOLOGIST DISTRICT DIRECTOR DEAN MCWILLIAMS M.D. Performed By: #### G LULS #### Point of Care testing , Glucose [Mass/Vol] 109 mg/dL Normal [facility] Comment on above: Result Comment: [place] Glucose Reference Range is dependent on time and content of last meal. Glucose of more than 200 mg/dL in a nonstressed, ambulatory subject supports the diagnosis of Diabetes Mellitus. PERFORMED BY: [address] [address] PATHOLOGIST DISTRICT DIRECTOR DEAN MCWILLIAMS M.D. Performed By: #### G LULS #### Point of Care testing , Basic Metabolic Panelon Anion gap [Moles/Vol] 16.3 mmol/L High 6.0-15.0 [facility] Comment on above: Performed By: #### G LULS #### Point of Care testing , Calcium [Mass/Vol] 9.2 mg/dL Normal 8.6-10.3 [facility] Comment on above: Performed By: #### G JOSHLS #### Point of Care testing , Chloride [Moles/Vol] 96 mmol/L Low 98-107 [facility] Comment on above: Performed By: #### G JOSHLS #### Point of Care testing , CO2 [Moles/Vol] 27.5 mmol/L Normal 21.0-31.0 [facility] Comment on above: Performed By: #### G JOSHLS #### Point of Care testing , Creatinine [Mass/Vol] 6.49 mg/dL Significant change up 0.70-1.30 [facility] Comment on above: Performed By: #### G JOSHLS #### Point of Care testing , Creatinine Clr Calc Pharmacy 13.69 [facility] Comment on above: Performed By: #### G JOSHLS #### Point of Care testing , GFR/1.73 sq M.predicted MDRD (S/P/Bld) [Vol rate/Area] 8.744 mL/min/{1.73_m2} [facility] Comment on above: Performed By: #### G JOSHLS #### Point of Care testing , Glucose [Mass/Vol] 120 mg/dL High 70-100 [facility] Comment on above: Result Comment: [place] Glucose Reference Range is dependent on time and content of last meal. Glucose of more than 200 mg/dL in a nonstressed, ambulatory subject supports the diagnosis of Diabetes Mellitus. ADA recommended reference range Performed By: #### G JOSHLS #### Point of Care testing , Potassium [Moles/Vol] 4.8 mmol/L Normal 3.5-5.1 [facility] Comment on above: Performed By: #### G DARLENE #### Point of Care testing , Sodium [Moles/Vol] 135 mmol/L Low 136-145 [facility] Comment on above: Performed By: #### G JOSHLS #### Point of Care testing , Urea nitrogen [Mass/Vol] 22 mg/dL Normal 7-25 [facility] Comment on above: Performed By: #### G LULS #### Point of Care testing , ECG 12 lead ECGon 04-13-2023 ECG 12 lead ECG [facility] [place] [address] [place] [id number] Electrocardiograph Report Signed Patient: Corbin Murphy MR#: [id number] : 1955 Acct:[id number] Age/Sex: 67 / M ADM Date: 04/09/23 Loc: Room: [address] [place] [address] Type: ADM IN Attending Dr: Gabriel Gould DO Ordering Provider: Gabriel Gould DO Date of Service: 04/13/2304/06/603 ECG/ECG 12 lead ECG: Irreguar heart rate. Copies to: Test Reason : Blood Pressure : / mmHG Vent. Rate : 071 BPM Atrial Rate : 071 BPM P-R Int : 162 ms QRS Dur : 088 ms QT Int : 384 ms P-R-T Axes : 026 051 050 degrees QTc Int : 417 ms Sinus rhythm with frequent premature ventricular complexes in a pattern of bigeminy When compared with ECG of 13-APR-2023 06:14, (Unconfirmed) No significant change was found Confirmed by Jeanine Guzman ([id number]) on 04/13/2023 7:07:08 PM Referred By: HOSP Electronically Signed By:Jeanine Guzman Transcribed By: MUS Signed By Jeanine Guzman MD 4 [id number] Normal [facility] Glucose Poct Glucometerson 0 04-13-2023 Glucose [Mass/Vol] 164 mg/dL Normal [facility] Comment on above: Result Comment: [facility] Glucose Reference Range is dependent on time and content of last meal. Glucose of more than 200 mg/dL in a nonstressed, ambulatory subject supports the diagnosis of Diabetes Mellitus. PERFORMED BY: [place] [address] PATHOLOGIST DISTRICT DIRECTOR DEAN MCWILLIAMS M.D. Performed By: #### G DARLENE #### Point of Care testing , Glucose [Mass/Vol] 254 mg/dL Normal [facility] Comment on above: Result Comment: [facility] Glucose Reference Range is dependent on time and content of last meal. Glucose of more than 200 mg/dL in a nonstressed, ambulatory subject supports the diagnosis of Diabetes Mellitus. PERFORMED BY: [place] [address] [address] [place] [id number] PATHOLOGIST DISTRICT DIRECTOR DEAN MCWILLIAMS M.D. Performed By: #### G LULS #### Point of Care testing , Commemt1 Glu2: Cleaned Meter Normal [facility] Comment on above: Result Comment: PERF ORMED BY: [facility] [address] [place] [id number] PATHOLOGIST DISTRICT DIRECTOR DEAN MCWILLIAMS M.D. Performed By: #### G LULS #### Point of Care testing , Glucose [Mass/Vol] 286 mg/dL Normal [facility] Comment on above: Result Comment: [place] om Glucose Reference Range is dependent on time and content of last meal. Glucose of more than 200 mg/dL in a nonstressed, ambulatory subject supports the diagnosis of Diabetes Mellitus. Performed By: #### G LULS #### Point of Care testing , Glucose [Mass/Vol] 126 mg/dL Normal [facility] Comment on above: Result Comment: [place] om Glucose Reference Range is dependent on time and content of last meal. Glucose of more than 200 mg/dL in a nonstressed, ambulatory subject supports the diagnosis of Diabetes Mellitus. PERFORMED BY: [address] [address] PATHOLOGIST DISTRICT DIRECTOR DEAN MCWILLIAMS M.D. Performed By: #### G LULS #### Point of Care testing , Hemogram CBC Without Diffon 04-13-2023 Erythrocyte distribution width (RBC) [Ratio] 15.2 % High 12.0-14.8 [facility] Comment on above: Performed By: #### G LULS #### Point of Care testing , Hematocrit (Bld) [Volume fraction] 29.7 % Low 38.8-50.0 [facility] Comment on above: Performed By: #### G LULS #### Point of Care testing , Hemoglobin (Bld) [Mass/Vol] 10.1 g/dL Low 13.0-17.0 [facility] Comment on above: Performed By: #### G LULS #### Point of Care testing , MCH (RBC) [Entitic mass] 31.0 pg Normal 27.5-35.2 [facility] Comment on above: Performed By: #### G LULS #### Point of Care testing , MCV (RBC) [Entitic vol] 91.4 fL Normal 83.5-101 [facility] Comment on above: Performed By: #### G LULS #### Point of Care testing , Mean Corpuscular HGB Conc 33.9 g/dL Normal 32.5-35.6 [facility] Comment on above: Performed By: #### G LULS #### Point of Care testing , Platelet mean volume (Bld) [Entitic vol] 7.9 fL Normal 6.6-10.1 [facility] Comment on above: Result Comment: PERF ORMED BY: [facility] [address] [address] PATHOLOGIST DISTRICT DIRECTOR DEAN MCWILLIAMS M.D. Performed By: #### G JOSHLS #### Point of Care testing , Platelets (Bld) [#/Vol] 249 10*3/uL Normal 150-450 [facility] Comment on above: Performed By: #### G LULS #### Point of Care testing , RBC (Bld) [#/Vol] 3.25 10*6/uL Low 3.90-5.60 [facility] Comment on above: Performed By: #### G LULS #### Point of Care testing , WBC (Bld) [#/Vol] 5.9 10*3/uL Normal 4.1-10.5 [facility] Comment on above: Performed By: #### G LULS #### Point of Care testing , Magnesiumon 04-13-2023 Magnesium [Mass/Vol] 1.8 mg/dL Low 1.9-2.7 [facility] Comment on above: Result Comment: PERF ORMED BY: [facility] [address] [place] [address] PATHOLOGIST DISTRICT DIRECTOR DEAN MCWILLIAMS M.D. Performed By: #### G DARLENE #### Point of Care testing , Basic Metabolic Panelon Anion gap [Moles/Vol] 17.0 mmol/L High 6.0-15.0 [facility] Comment on above: Performed By: #### B MP, MG #### [facility] [address] [place] [address] [place] Calcium [Mass/Vol] 8.9 mg/dL Normal 8.6-10.3 [facility] Comment on above: Performed By: #### B MP, MG #### [facility] [address] [place] [address] [place] Chloride [Moles/Vol] 95 mmol/L Low 98-107 [facility] Comment on above: Performed By: #### B MP, MG #### [facility] [address] [place] [address] [place] CO2 [Moles/Vol] 27.2 mmol/L Normal 21.0-31.0 [facility] Comment on above: Performed By: #### B MP, MG #### [facility] [address] [place] [address] [place] Creatinine [Mass/Vol] 9.40 mg/dL Significant change up 0.70-1.30 [facility] Comment on above: Performed By: #### B MP, MG #### [facility] [address] [place] [address] [place] Creatinine Clr Calc Pharmacy 9.45 [facility] Comment on above: Performed By: #### B MP, MG #### [facility] [address] [place] [address] [place] GFR/1.73 sq M.predicted MDRD (S/P/Bld) [Vol rate/Area] 5.606 mL/min/{1.73_m2} [facility] Comment on above: Performed By: #### B MP, MG #### [facility] [address] [place] [address] [place] Glucose [Mass/Vol] 204 mg/dL Significant change up 70-100 [facility] Comment on above: Result Comment: [place] Glucose Reference Range is dependent on time and content of last meal. Glucose of more than 200 mg/dL in a nonstressed, ambulatory subject supports the diagnosis of Diabetes Mellitus. ADA recommended reference range Performed By: #### B MP, MG #### [facility] [address] Potassium [Moles/Vol] 5.2 mmol/L High 3.5-5.1 [facility] Comment on above: Performed By: #### B MP, MG #### [facility] [address] [place] [address] [place] Sodium [Moles/Vol] 134 mmol/L Low 136-145 [facility] Comment on above: Performed By: #### B MP, MG #### [facility] [address] Urea nitrogen [Mass/Vol] 42 mg/dL High 7-25 [facility] Comment on above: Performed By: #### B MP, MG #### [facility] [address] Clostridium Difficileon 03- Clostridium Difficile Negative Normal Negative [facility] Comment on above: Order Comment: > or = to 3 loose/watery stools in the last 24 HRS? Y Is patient on promotility agents or tube feeding? N Result Comment: Test ing performed by RT-PCR PERFORMED BY: [place] [address] PATHOLOGIST DISTRICT DIRECTOR DEAN MCWILLIAMS M.D. Performed By: #### G DARLENE #### Point of Care testing , Glucose Poct Glucometerson 0 04-12-2023 Glucose [Mass/Vol] 265 mg/dL Normal [facility] Comment on above: Result Comment: [facility] Glucose Reference Range is dependent on time and content of last meal. Glucose of more than 200 mg/dL in a nonstressed, ambulatory subject supports the diagnosis of Diabetes Mellitus. PERFORMED BY: [place] [address] PATHOLOGIST DISTRICT DIRECTOR DEAN MCWILLIAMS M.D. Performed By: #### G LULS #### Point of Care testing , Glucose [Mass/Vol] 207 mg/dL Normal [facility] Comment on above: Result Comment: [place] om Glucose Reference Range is dependent on time and content of last meal. Glucose of more than 200 mg/dL in a nonstressed, ambulatory subject supports the diagnosis of Diabetes Mellitus. PERFORMED BY: [place] [address] PATHOLOGIST DISTRICT DIRECTOR DEAN MCWILLIAMS M.D. Performed By: #### G LULS #### Point of Care testing , Commemt1 Glu2: Cleaned Meter Normal [facility] Comment on above: Result Comment: PERF ORMED BY: [place] [address] PATHOLOGIST DISTRICT DIRECTOR DEAN MCWILLIAMS M.D. Performed By: #### G LULS #### Point of Care testing , Glucose [Mass/Vol] 130 mg/dL Normal [facility] Comment on above: Result Comment: [place] om Glucose Reference Range is dependent on time and content of last meal. Glucose of more than 200 mg/dL in a nonstressed, ambulatory subject supports the diagnosis of Diabetes Mellitus. Performed By: #### G LULS #### Point of Care testing , Glucose [Mass/Vol] 129 mg/dL Normal [facility] Comment on above: Result Comment: [place] om Glucose Reference Range is dependent on time and content of last meal. Glucose of more than 200 mg/dL in a nonstressed, ambulatory subject supports the diagnosis of Diabetes Mellitus. PERFORMED BY: [place] [address] PATHOLOGIST DISTRICT DIRECTOR DEAN MCWILLIAMS M.D. Performed By: #### P P #### [address] Glucose [Mass/Vol] 224 mg/dL Normal [facility] Comment on above: Result Comment: [place] om Glucose Reference Range is dependent on time and content of last meal. Glucose of more than 200 mg/dL in a nonstressed, ambulatory subject supports the diagnosis of Diabetes Mellitus. PERFORMED BY: [place] [address] PATHOLOGIST DISTRICT DIRECTOR DEAN MCWILLIAMS M.D. Performed By: #### B MG CANDELARIA #### [address] Hemogram CBC Without Diffon 04-12-2023 Erythrocyte distribution width (RBC) [Ratio] 14.8 % Normal 12.0-14.8 [facility] Comment on above: Performed By: #### G LULS #### Point of Care testing , Hematocrit (Bld) [Volume fraction] 29.9 % Low 38.8-50.0 [facility] Comment on above: Performed By: #### G LULS #### Point of Care testing , Hemoglobin (Bld) [Mass/Vol] 10.1 g/dL Low 13.0-17.0 [facility] Comment on above: Performed By: #### G LULS #### Point of Care testing , MCH (RBC) [Entitic mass] 30.8 pg Normal 27.5-35.2 [facility] Comment on above: Performed By: #### G LULS #### Point of Care testing , MCV (RBC) [Entitic vol] 91.4 fL Normal 83.5-101 [facility] Comment on above: Performed By: #### G LULS #### Point of Care testing , Mean Corpuscular HGB Conc 33.7 g/dL Normal 32.5-35.6 [facility] Comment on above: Performed By: #### G LULS #### Point of Care testing , Platelet mean volume (Bld) [Entitic vol] 8.0 fL Normal 6.6-10.1 [facility] Comment on above: Result Comment: PERF ORMED BY: [address] [address] PATHOLOGIST DISTRICT DIRECTOR DEAN MCWILLIAMS M.D. Performed By: #### G JOSHLS #### Point of Care testing , Platelets (Bld) [#/Vol] 230 10*3/uL Normal 150-450 [facility] Comment on above: Performed By: #### G DARLENE #### Point of Care testing , RBC (Bld) [#/Vol] 3.27 10*6/uL Low 3.90-5.60 [facility] Comment on above: Performed By: #### G LULS #### Point of Care testing , WBC (Bld) [#/Vol] 6.6 10*3/uL Normal 4.1-10.5 [facility] Comment on above: Performed By: #### G DARLENE #### Point of Care testing , Magnesiumon 04-12-2023 Magnesium [Mass/Vol] 2.0 mg/dL Normal 1.9-2.7 [facility] Comment on above: Result Comment: PERF ORMED BY: [place] [address] PATHOLOGIST DISTRICT DIRECTOR DEAN MCWILLIAMS M.D. Performed By: #### B MP, MG #### [address] Basic Metabolic Panelon 03-15 Anion gap [Moles/Vol] 16.4 mmol/L High 6.0-15.0 [facility] Comment on above: Performed By: #### B MP, MG #### [place] [address] [place] Calcium [Mass/Vol] 9.3 mg/dL Normal 8.6-10.3 [facility] Comment on above: Performed By: #### B MP, MG #### [facility] [address] [place] [address] [place] Chloride [Moles/Vol] 96 mmol/L Low 98-107 [facility] Comment on above: Performed By: #### B MP, MG #### [facility] [address] [place] [address] [place] CO2 [Moles/Vol] 29.6 mmol/L Normal 21.0-31.0 [facility] Comment on above: Performed By: #### B MP, MG #### [facility] [address] Creatinine [Mass/Vol] 7.14 mg/dL Significant change up 0.70-1.30 [facility] Comment on above: Performed By: #### B MP, MG #### [address] Creatinine Clr Calc Pharmacy 12.48 [facility] Comment on above: Performed By: #### B MP, MG #### [facility] [address] [place] [address] [place] GFR/1.73 sq M.predicted MDRD (S/P/Bld) [Vol rate/Area] 7.798 mL/min/{1.73_m2} [facility] Comment on above: Performed By: #### B MP, MG #### [address] Glucose [Mass/Vol] 64 mg/dL Low 70-100 [facility] Comment on above: Result Comment: [place] Glucose Reference Range is dependent on time and content of last meal. Glucose of more than 200 mg/dL in a nonstressed, ambulatory subject supports the diagnosis of Diabetes Mellitus. ADA recommended reference range Performed By: #### B MP, MG #### [address] Potassium [Moles/Vol] 5.0 mmol/L Normal 3.5-5.1 [facility] Comment on above: Performed By: #### B MP, MG #### [place] [address] [place] Sodium [Moles/Vol] 137 mmol/L Normal 136-145 [facility] Comment on above: Performed By: #### B MP, MG #### [address] Urea nitrogen [Mass/Vol] 34 mg/dL High 7-25 [facility] Comment on above: Performed By: #### B MP, MG #### [address] Glucose Poct Glucometerson 0 04-11-2023 Glucose [Mass/Vol] 389 mg/dL Normal [facility] Comment on above: Result Comment: [place] Glucose Reference Range is dependent on time and content of last meal. Glucose of more than 200 mg/dL in a nonstressed, ambulatory subject supports the diagnosis of Diabetes Mellitus. PERFORMED BY: [place] [address] PATHOLOGIST DISTRICT DIRECTOR DEAN MCWILLIAMS M.D. Performed By: #### P P #### [facility] [address] [place] [address] [place] Commemt1 [facility] Comment on above: Result Comment: Glu2 : WILL NOTIFY DR/RN Performed By: #### G LULS #### Point of Care testing , Commemt2 Cleaned Meter [facility] Comment on above: Result Comment: PERF ORMED BY: [place] [address] PATHOLOGIST DISTRICT DIRECTOR DEAN MCWILLIAMS M.D. Performed By: #### G LULS #### Point of Care testing , Glucose [Mass/Vol] 457 mg/dL Off scale [facility] Comment on above: Result Comment: [place] om Glucose Reference Range is dependent on time and content of last meal. Glucose of more than 200 mg/dL in a nonstressed, ambulatory subject supports the diagnosis of Diabetes Mellitus. Performed By: #### G LULS #### Point of Care testing , Glucose [Mass/Vol] 78 mg/dL Normal [facility] Comment on above: Result Comment: [place] Glucose Reference Range is dependent on time and content of last meal. Glucose of more than 200 mg/dL in a nonstressed, ambulatory subject supports the diagnosis of Diabetes Mellitus. PERFORMED BY: [place] [address] PATHOLOGIST DISTRICT DIRECTOR DEAN MCWILLIAMS M.D. Performed By: #### B MP, MG #### [address] Hemogram CBC Without Diffon 04-11-2023 Erythrocyte distribution width (RBC) [Ratio] 15.2 % High 12.0-14.8 [facility] Comment on above: Performed By: #### P P #### [address] Hematocrit (Bld) [Volume fraction] 32.3 % Low 38.8-50.0 [facility] Comment on above: Performed By: #### P P #### [address] Hemoglobin (Bld) [Mass/Vol] 10.8 g/dL Low 13.0-17.0 [facility] Comment on above: Performed By: #### P P #### [address] MCH (RBC) [Entitic mass] 30.6 pg Normal 27.5-35.2 [facility] Comment on above: Performed By: #### P P #### [address] MCV (RBC) [Entitic vol] 91.5 fL Normal 83.5-101 [facility] Comment on above: Performed By: #### P P #### [address] Mean Corpuscular HGB Conc 33.4 g/dL Normal 32.5-35.6 [facility] Comment on above: Performed By: #### P P #### [address] Platelet mean volume (Bld) [Entitic vol] 8.3 fL Normal 6.6-10.1 [facility] Comment on above: Result Comment: PERF ORMED BY: [place] [address] PATHOLOGIST DISTRICT DIRECTOR DEAN MCWILLIAMS M.D. Performed By: #### P P #### [address] Platelets (Bld) [#/Vol] 228 10*3/uL Normal 150-450 [facility] Comment on above: Performed By: #### P P #### [facility] [address] RBC (Bld) [#/Vol] 3.53 10*6/uL Low 3.90-5.60 [facility] Comment on above: Performed By: #### P P #### [facility] [address] WBC (Bld) [#/Vol] 7.0 10*3/uL Normal 4.1-10.5 [facility] Comment on above: Performed By: #### P P #### [address] Magnesiumon 04-11-2023 Magnesium [Mass/Vol] 2.1 mg/dL Normal 1.9-2.7 [facility] Comment on above: Result Comment: PERF ORMED BY: [place] [address] PATHOLOGIST DISTRICT DIRECTOR DEAN MCWILLIAMS M.D. Performed By: #### B MP, MG #### [address] A1C with Estimated Average G luon 04-10-2023 Glucose [Mass/Vol] 235 mg/dL Normal [facility] Comment on above: Result Comment: PERF ORMED BY: [place] [address] PATHOLOGIST DISTRICT DIRECTOR DEAN MCWILLIAMS M.D. Performed By: #### B MP, MG #### [address] HbA1c (Bld) [Mass fraction] 9.8 % High 4.3-5.6 [facility] Comment on above: Result Comment: Incr eased risk for diabetes: 5.7 - 6.4 diabetes: >6.4 glycemic control for adults with diabetes: <7.0 Performed By: #### B MP, MG #### [address] Basic Metabolic Panelon 03-15 Anion gap [Moles/Vol] 16.8 mmol/L High 6.0-15.0 [facility] Comment on above: Order Comment: FASTI NG Y Performed By: #### B MP, MG #### [facility] [address] Calcium [Mass/Vol] 9.2 mg/dL Normal 8.6-10.3 [facility] Comment on above: Order Comment: FASTI NG Y Performed By: #### B MP, MG #### [facility] [address] Chloride [Moles/Vol] 95 mmol/L Low 98-107 [facility] Comment on above: Order Comment: FASTI NG Y Performed By: #### B MP, MG #### [address] CO2 [Moles/Vol] 25.2 mmol/L Normal 21.0-31.0 [facility] Comment on above: Order Comment: FASTI NG Y Performed By: #### B MP, MG #### [facility] [address] Creatinine [Mass/Vol] 9.83 mg/dL Significant change up 0.70-1.30 [facility] Comment on above: Order Comment: FASTI NG Y Performed By: #### B MP, MG #### [place] [address] [place] Creatinine Clr Calc Pharmacy 8.58 [facility] Comment on above: Order Comment: FASTI NG Y Performed By: #### B MP, MG #### [facility] [address] [place] [address] [place] GFR/1.73 sq M.predicted MDRD (S/P/Bld) [Vol rate/Area] 5.313 mL/min/{1.73_m2} [facility] Comment on above: Order Comment: FASTI NG Y Performed By: #### B MP, MG #### [facility] [address] [place] [address] Glucose [Mass/Vol] 115 mg/dL High 70-100 [facility] Comment on above: Order Comment: FASTI NG Y Result Comment: [facility] Glucose Reference Range is dependent on time and content of last meal. Glucose of more than 200 mg/dL in a nonstressed, ambulatory subject supports the diagnosis of Diabetes Mellitus. ADA recommended reference range Performed By: #### B MP, MG #### [address] Potassium [Moles/Vol] 5.0 mmol/L Normal 3.5-5.1 [facility] Comment on above: Order Comment: FASTI NG Y Performed By: #### B MP, MG #### [address] Sodium [Moles/Vol] 132 mmol/L Low 136-145 [facility] Comment on above: Order Comment: FASTI NG Y Performed By: #### B MP, MG #### [address] Urea nitrogen [Mass/Vol] 40 mg/dL High 7-25 [facility] Comment on above: Order Comment: FASTI NG Y Performed By: #### B MP, MG #### [place] [address] [place] C-Reactive Proteinon 024 C-Reactive Protein 12.5 mg/dL High 0.0-0.5 [facility] Comment on above: Order Comment: FASTI NG Y Performed By: #### B MP, MG #### [address] Complete Blood Count Auto Di ffon 04-10-2023 Basophils (Bld) [#/Vol] 0.0 10*3/uL Normal 0.0-0.2 [facility] Comment on above: Result Comment: PERF ORMED BY: [place] [address] PATHOLOGIST DISTRICT DIRECTOR DEAN MCWILLIAMS M.D. Performed By: #### B MP, MG #### [place] [address] [place] Basophils/100 WBC (Bld) 0.4 % Normal . [facility] Comment on above: Performed By: #### B MP, MG #### [facility] [address] [place] [address] [place] Eosinophils (Bld) [#/Vol] 0.0 10*3/uL Normal 0.0-0.45 [facility] Comment on above: Performed By: #### B MP, MG #### [facility] [facility] [address] Eosinophils/100 WBC (Bld) 0.5 % Normal . [facility] Comment on above: Performed By: #### B MP, MG #### [facility] [address] Erythrocyte distribution width (RBC) [Ratio] 15.1 % High 12.0-14.8 [facility] Comment on above: Performed By: #### B MP, MG #### [facility] [address] Hematocrit (Bld) [Volume fraction] 30.7 % Low 38.8-50.0 [facility] Comment on above: Performed By: #### B MP, MG #### [facility] [address] Hemoglobin (Bld) [Mass/Vol] 10.4 g/dL Low 13.0-17.0 [facility] Comment on above: Performed By: #### B MP, MG #### [facility] [address] [place] [address] [place] Lymphocytes (Bld) [#/Vol] 0.3 10*3/uL Low 1.00-4.8 [facility] Comment on above: Performed By: #### B MP, MG #### [facility] [address] [place] [address] [place] Lymphocytes/100 WBC (Bld) 3.6 % Normal . [facility] Comment on above: Performed By: #### B MP, MG #### [address] MCH (RBC) [Entitic mass] 31.1 pg Normal 27.5-35.2 [facility] Comment on above: Performed By: #### B MP, MG #### [facility] [address] MCV (RBC) [Entitic vol] 91.9 fL Normal 83.5-101 [facility] Comment on above: Performed By: #### B MP, MG #### [facility] [address] Mean Corpuscular HGB Conc 33.8 g/dL Normal 32.5-35.6 [facility] Comment on above: Performed By: #### B MP, MG #### [facility] [address] Monocytes (Bld) [#/Vol] 0.8 10*3/uL Normal 0.0-0.8 [facility] Comment on above: Performed By: #### B MP, MG #### [facility] [address] Monocytes/100 WBC (Bld) 10.6 % Normal . [facility] Comment on above: Performed By: #### B MP, MG #### [facility] [address] [place] [address] [place] Neutrophils (Bld) [#/Vol] 6.6 10*3/uL Normal 1.8-7.7 [facility] Comment on above: Performed By: #### B MP, MG #### [facility] [address] Neutrophils/100 WBC (Bld) 84.9 % Normal . [facility] Comment on above: Performed By: #### B MP, MG #### [facility] [address] [place] [address] [place] NRBC% 0.1 /100{WBC} Normal 0-0.5 [facility] Comment on above: Performed By: #### B MP, MG #### [facility] [address] Platelet mean volume (Bld) [Entitic vol] 8.5 fL Normal 6.6-10.1 [facility] Comment on above: Performed By: #### B MP, MG #### [facility] [address] Platelets (Bld) [#/Vol] 215 10*3/uL Normal 150-450 [facility] Comment on above: Performed By: #### B MP, MG #### [facility] [address] RBC (Bld) [#/Vol] 3.34 10*6/uL Low 3.90-5.60 [facility] Comment on above: Performed By: #### B MP, MG #### [facility] [address] WBC (Bld) [#/Vol] 7.8 10*3/uL Normal 4.1-10.5 [facility] Comment on above: Performed By: #### B MP, MG #### [address] Erythrocyte Sedimentation Ra kunal 04-10-2023 ESR (Bld) [Velocity] 68 mm/h High 0-19 [facility] Comment on above: Result Comment: PERF ORMED BY: [place] [address] PATHOLOGIST DISTRICT DIRECTOR DEAN MCWILLIAMS M.D. Performed By: #### P P #### [address] Glucose Poct Glucometerson 0 04-10-2023 Glucose [Mass/Vol] 398 mg/dL Normal [facility] Comment on above: Result Comment: [facility] Glucose Reference Range is dependent on time and content of last meal. Glucose of more than 200 mg/dL in a nonstressed, ambulatory subject supports the diagnosis of Diabetes Mellitus. PERFORMED BY: [place] [address] PATHOLOGIST DISTRICT DIRECTOR DEAN MCWILLIAMS M.D. Performed By: #### G LULS #### Point of Care testing , Glucose [Mass/Vol] 308 mg/dL Normal [facility] Comment on above: Result Comment: [facility] Glucose Reference Range is dependent on time and content of last meal. Glucose of more than 200 mg/dL in a nonstressed, ambulatory subject supports the diagnosis of Diabetes Mellitus. PERFORMED BY: [place] [address] PATHOLOGIST DISTRICT DIRECTOR DEAN MCWILLIAMS M.D. Performed By: #### B MP, MG #### [facility] [address] [place] [address] Commemt1 Glu2: Cleaned Meter [facility] Comment on above: Result Comment: PERF ORMED BY: [place] [address] PATHOLOGIST DISTRICT DIRECTOR DEAN MCWILLIAMS M.D. Performed By: #### P P #### [address] Glucose [Mass/Vol] 137 mg/dL Normal [facility] Comment on above: Result Comment: [place] om Glucose Reference Range is dependent on time and content of last meal. Glucose of more than 200 mg/dL in a nonstressed, ambulatory subject supports the diagnosis of Diabetes Mellitus. Performed By: #### P P #### [address] Commemt1 Glu2: Cleaned Meter [facility] Comment on above: Result Comment: PERF ORMED BY: [place] [address] PATHOLOGIST DISTRICT DIRECTOR DEAN MCWILLIAMS M.D. Performed By: #### P P #### [address] Glucose [Mass/Vol] 117 mg/dL Normal [facility] Comment on above: Result Comment: [place] om Glucose Reference Range is dependent on time and content of last meal. Glucose of more than 200 mg/dL in a nonstressed, ambulatory subject supports the diagnosis of Diabetes Mellitus. Performed By: #### P P #### [address] Commemt1 Glu2: Cleaned Meter [facility] Comment on above: Result Comment: PERF ORMED BY: [facility] [address] [place] [address] PATHOLOGIST DISTRICT DIRECTOR DEAN MCWILLIAMS M.D. Performed By: #### G LULS #### Point of Care testing , Glucose [Mass/Vol] 275 mg/dL Normal [facility] Comment on above: Result Comment: [facility] Glucose Reference Range is dependent on time and content of last meal. Glucose of more than 200 mg/dL in a nonstressed, ambulatory subject supports the diagnosis of Diabetes Mellitus. Performed By: #### G LULS #### Point of Care testing , Lipid Panelon 04-10-2023 Cholesterol [Mass/Vol] 74 mg/dL Low 140-200 [facility] Comment on above: Order Comment: FASTI NG Y Result Comment: Chol less than 200 mg/dl low risk Chol 201-239 mg/dl borderline risk Chol 240 mg/dl and greater high risk Performed By: #### B MP, MG #### [facility] [address] [place] [id number] [facility] Cholesterol in HDL [Mass/Vol] 40 mg/dL Normal 23-92 [facility] Comment on above: Order Comment: FASTI NG Y Result Comment: HDL CHOL ATP-III CLASSIFICATION Cardiovascular Risk HDL > or equal to 60 mg/dL LOW HDL < 40 mg/dL HIGH Performed By: #### B MP, MG #### [facility] [address] [place] [address] [place] Cholesterol.total/Ch olesterol in HDL [Mass ratio] 1.9 {ratio} Normal <5.0 [facility] Comment on above: Order Comment: FASTI NG Y Result Comment: PERF ORMED BY: [facility] [address] [place] [id number] PATHOLOGIST DISTRICT DIRECTOR DEAN MCWILLIAMS M.D. Performed By: #### B MP, MG #### [facility] [address] [place] [id number] [place] LDL Cholesterol,Calculat ed 21 mg/dL Normal 0-100 [facility] Comment on above: Order Comment: FASTI NG Y Result Comment: LDL ATP III CLASSIFICATION LDL less than 100 mg/dL Optimal LDL 100-129 mg/dL Near or above optimal LDL 130-159 mg/dL Borderline high LDL 160-189 mg/dL High LDL greater than 189 mg/dL Very high Performed By: #### B MP, MG #### [address] Triglyceride w/Reflex 66 mg/dL Normal 0-149 [facility] Comment on above: Order Comment: JAMES ORTEGA Y Result Comment: TRIG ATP III CLASSIFICATION TRIG less than 150 mg/dL Normal TRIG 150-199 mg/dL Borderline high TRIG 200-500 mg/dL High TRIG greater than 500 mg/dL Very high Standard traceable to the Center for Disease Conrtrol and Prevention (CDC) test method. Performed By: #### B MP, MG #### [address] VLDL CHOLESTEROL 13 mg/dL Normal [facility] Comment on above: Order Comment: JAMES Giron Performed By: #### B MP, MG #### [address] MR foot LT wo conon 04-10-19 MR foot LT wo con [facility] [place] [address] [place] [address] MRI Report Signed Patient: Corbin Murphy MR#: [id number] : 1955 Acct:[id number] Age/Sex: 67 / M ADM Date: 04/09/23 Loc: Room: [address] [place] [address] Type: ADM IN Attending Dr: Gabriel Gould DO Copies to: Gabriel Gould DO Ordering Provider: Gabriel Gould DO Date of Service: 04/10/23 MR/MR foot LT wo con: osteo MR foot LT wo con 04/09/2023 6:22 PM SIGNS AND SYMPTOMS: Open wound on left foot for one month PROTOCOL: Multiplanar multisequence MR images of the left foot were obtained without IV contrast COMPARISON: 04/09/2023 FINDINGS: Lisfranc ligament: Intact. Hallux: Osseous: Edema is noted in the distal aspects of the first metatarsal and the base of the first proximal phalanx with an adjacent soft tissue ulceration consistent with osteomyelitis. There is cortical thinning along the medial margin of the head of the first metatarsal similar to that seen on the previous radiographs. There is a mild hallux valgus deformity. Extensor tendon: Normal. Flexor tendon: Normal. First metatarsophalangeal joint: Osteomyelitis is noted on both sides of the first metatarsophalangeal joint space suspicious for septic arthritis. Hallux-sesamoid complex: There is significant edema along the medial sesamoid suggesting osteomyelitis. Second ray: Osseous: Normal. Extensor tendon: Normal. Flexor tendon: Normal. Second metatarsophalangeal joint: Intact. Plantar plate: Normal. Third ray: Osseous: Normal. Extensor tendon: Normal. Flexor tendon: Normal. Third metatarsophalangeal joint: Intact. Plantar plate: Normal. Fourth ray: Osseous: Normal. Extensor tendon: Normal. Flexor tendon: Normal. Fourth metatarsophalangeal joint: Intact. Plantar plate: Normal. Fifth ray: Osseous: There is increased signal in the this distal phalanx on STIR images suspicious for osteomyelitis. Extensor tendon: Normal. Flexor tendon: Normal. Fifth metatarsophalangeal joint: Intact. Plantar plate: Normal. Interspaces: Interdigital (Amato) neuroma: None. Intermetatarsal bursitis: None. Soft tissues: Ulceration is noted along the medial margin of the first metatarsophalangeal joint. There is diffuse soft tissue swelling. There is no evidence of abscess formation. Muscles: Edema is noted in the intrinsic muscles of the foot consistent with myositis. Bones: Normal. Nerves: Normal. Blood vessels: Normal. MR/MR foot LT wo con IMPRESSION: Edema is noted in the distal aspects of the first metatarsal and the base of the first proximal phalanx with an adjacent soft tissue ulceration consistent with osteomyelitis. There is cortical thinning along the medial margin of the head of the first metatarsal similar to that seen on the previous radiographs. There is significant edema along the medial sesamoid suggesting osteomyelitis. There is increased signal in the this distal phalanx on STIR images suspicious for osteomyelitis. Osteomyelitis is noted on both sides of the first metatarsophalangeal joint space suspicious for septic arthritis. Impression dictated by: Reagan Burger M.D.04/10/2023 6:22 PM Dictation Location: [id number]-13 Transcribed By: SAMINA 04/10/231821 Dictated By: Reagan Burger II, MD 04/10/231813 Signed By: 04/10/231821 Normal [facility] Magnesiumon 04-10-2023 Magnesium [Mass/Vol] 2.0 mg/dL Normal 1.9-2.7 [facility] Comment on above: Order Comment: JAMES ORTEGA Y Performed By: #### B MP, MG #### [facility] [address] [place] [phone] [facility] US arterial pvr rest Amber US arterial pvr rest LE [facility] [place] [address] [place] [address] Ultrasound Report Signed Patient: Corbin Murphy MR#: [id number] : 1955 Acct:[id number] Age/Sex: 67 / M ADM Date: 04/09/23 Loc: Room: [address] [place] [address] Type: ADM IN Attending Dr: Gabriel Gould DO Ordering Provider: Gabriel Gould DO Date of Service: 04/10/23 US/US arterial pvr rest LE: left lower osteo Copies to: Gabriel Gould DO LOWER EXTREMITY SEGMENTAL ARTERIAL DOPSCAN (PVR) INDICATION: Nonhealing wound PROCEDURE: Right arm blood pressure is not obtained due to AV fistula , left is 114 . Pressures throughout the right leg are 168 at the high thigh, at the 144 low thigh, 155 at the calf, 160 at the ankle using the posterior tibial artery, and 148 at the ankle using the dorsalis pedis artery with ankle-brachial index of 1.40 1.30 . Pressures throughout the left leg are 160 at the high thigh, at the 141 low thigh, 131 at the calf and 133 at the ankle using the posterior tibial artery, and 130 at the ankle using the dorsalis pedis artery with ankle-brachial index of 1.17 1.14 . Wave forms by plethysmography are pulsatile with mild blunting US/US arterial pvr rest LE IMPRESSION: Ankle-brachial indices are normal bilaterally. Waveforms by plethysmography suggest at least mild peripheral vascular occlusive disease. Given that this patient has renal failure there may be some element of incompressibility which creates abnormally high ankle-brachial indices. This should be correlated with physical examination. Impression dictated by: Uriah Espinal M.D.04/10/2023 8:36 AM Dictation Location: RADDOC- Tech: Alaina Myersgentry Transcribed By: SAMINA 04/10/23835 Dictated By: Uriah Espinal MD 04/10/2335 Signed By: 04/10/2336 [facility] US venous duplex LE LTon US venous duplex LE LT [facility] [place] [address] Ultrasound Report Signed Patient: Corbin Murphy MR#: [id number] : 1955 Acct:[id number] Age/Sex: 67 / M ADM Date: 04/09/23 Loc: Room: [address] [place] [address] Type: ADM IN Attending Dr: Gabriel Gould DO Ordering Provider: Autumn Allen DO, RES Date of Service: 04/09/23 US/US venous duplex LE LT: swelling Copies to: Autumn Allen DO, RES Gabriel Gould DO LEFT LOWER EXTREMITY VENOUS DUPLEX INDICATION: Swollen left leg Unilateral left lower extremity venous duplex Doppler study was obtained utilizing B-mode, color- flow and spectral Doppler. FINDINGS: The left common femoral, femoral, and popliteal veins showed adequate compressibility, color-flow and augmentation. The left posterior tibial and peroneal veins were compressible, as wel l as proximal greater saphenous vein. The contralateral right common femoral vein was compressible with color-flow and augmentation. US/US venous duplex LE LT IMPRESSION: NO EVIDENCE OF DEEP VENOUS THROMBOSIS IN THE LEFT LOWER EXTREMITY. NO SUPERFICIAL THROMBOPHLEBITIS WAS NOTED. Impression dictated by: Uriah Espinal M.D.04/10/2023 8:37 AM Dictation Location: DOC Tech: Bernadette Mason Transcribed By: SAMINA 04/10/2337 Dictated By: Uriah Espinal MD 04/10/2337 Signed By: 04/10/2337 [facility] Basic Metabolic Panelon 03-15 Anion gap [Moles/Vol] 21.2 mmol/L High 6.0-15.0 [facility] Comment on above: Performed By: #### G LULS #### Point of Care testing , Calcium [Mass/Vol] 9.8 mg/dL Normal 8.6-10.3 [facility] Comment on above: Performed By: #### G LULS #### Point of Care testing , Chloride [Moles/Vol] 93 mmol/L Low 98-107 [facility] Comment on above: Performed By: #### G LULS #### Point of Care testing , CO2 [Moles/Vol] 25.3 mmol/L Normal 21.0-31.0 [facility] Comment on above: Performed By: #### G LULS #### Point of Care testing , Creatinine [Mass/Vol] 8.07 mg/dL High 0.70-1.30 [facility] Comment on above: Performed By: #### G LULS #### Point of Care testing , Creatinine Clr Calc Pharmacy 10.36 [facility] Comment on above: Result Comment: PERF ORMED BY: [facility] [address] [place] [address] PATHOLOGIST DISTRICT DIRECTOR DEAN MCWILLIAMS M.D. Performed By: #### G LULS #### Point of Care testing , GFR/1.73 sq M.predicted MDRD (S/P/Bld) [Vol rate/Area] 6.732 mL/min/{1.73_m2} [facility] Comment on above: Performed By: #### G LULS #### Point of Care testing , Glucose [Mass/Vol] 175 mg/dL High 70-100 [facility] Comment on above: Result Comment: [place] Glucose Reference Range is dependent on time and content of last meal. Glucose of more than 200 mg/dL in a nonstressed, ambulatory subject supports the diagnosis of Diabetes Mellitus. ADA recommended reference range Performed By: #### G LULS #### Point of Care testing , Potassium [Moles/Vol] 5.5 mmol/L High 3.5-5.1 [facility] Comment on above: Performed By: #### G LULS #### Point of Care testing , Sodium [Moles/Vol] 134 mmol/L Low 136-145 [facility] Comment on above: Performed By: #### G LULS #### Point of Care testing , Urea nitrogen [Mass/Vol] 36 mg/dL High 7-25 [facility] Comment on above: Performed By: #### G LULS #### Point of Care testing , Blood Cultureon 04-09-2023 Bacteria identified Cx Nom (Bld) NO GROWTH 5 DAYS PERFORMED BY: [address] [place] [address] PATHOLOGIST DISTRICT DIRECTOR EDAN MCWILLIAMS M.D. [facility] Comment on above: Performed By: #### G LULS #### Point of Care testing , Bacteria identified Cx Nom (Bld) NO GROWTH 5 DAYS PERFORMED BY: [address] [address] PATHOLOGIST DISTRICT DIRECTOR DEAN MCWILLIAMS M.D. [facility] Comment on above: Performed By: #### G LULS #### Point of Care testing , Erythrocyte Sedimentation Ra kunal 04-09-2023 ESR (Bld) [Velocity] 91 mm/h High 0-19 [facility] Comment on above: Result Comment: PERF ORMED BY: [address] [place] [address] PATHOLOGIST DISTRICT DIRECTOR DEAN MCWILLIAMS M.D. Performed By: #### G LULS #### Point of Care testing , Lactic Acidon 04-09-2023 Lactate [Moles/Vol] 1.1 mmol/L Normal 0.5-2.2 [facility] Comment on above: Result Comment: PERF ORMED BY: [address] [place] [address] PATHOLOGIST DISTRICT DIRECTOR DEAN MCWILLIAMS M.D. Performed By: #### G LULS #### Point of Care testing , Magnesiumon 04-09-2023 Magnesium [Mass/Vol] 2.1 mg/dL Normal 1.9-2.7 [facility] Comment on above: Result Comment: PERF ORMED BY: [facility] [place] [address] PATHOLOGIST DISTRICT DIRECTOR DEAN MCWILLIAMS M.D. Performed By: #### G LULS #### Point of Care testing , Scan and CBCon 04-09-2023 Anisocytosis Ql (Bld) Slight Normal [facility] Comment on above: Performed By: #### G LULS #### Point of Care testing , Basophils (Bld) [#/Vol] 0.0 10*3/uL Normal 0.0-0.2 [facility] Comment on above: Performed By: #### G LULS #### Point of Care testing , Basophils/100 WBC (Bld) 0.5 % Normal . [facility] Comment on above: Performed By: #### G LULS #### Point of Care testing , Eosinophils (Bld) [#/Vol] 0.1 10*3/uL Normal 0.0-0.45 [facility] Comment on above: Performed By: #### G LULS #### Point of Care testing , Eosinophils/100 WBC (Bld) 1.1 % Normal . [facility] Comment on above: Performed By: #### G LULS #### Point of Care testing , Erythrocyte distribution width (RBC) [Ratio] 15.3 % High 12.0-14.8 [facility] Comment on above: Performed By: #### G LULS #### Point of Care testing , Hematocrit (Bld) [Volume fraction] 33.3 % Low 38.8-50.0 [facility] Comment on above: Performed By: #### G LULS #### Point of Care testing , Hemoglobin (Bld) [Mass/Vol] 11.2 g/dL Low 13.0-17.0 [facility] Comment on above: Performed By: #### G LULS #### Point of Care testing , Hypochromasia Slight Normal [facility] Comment on above: Performed By: #### G LULS #### Point of Care testing , Lymphocytes (Bld) [#/Vol] 0.8 10*3/uL Low 1.00-4.8 [facility] Comment on above: Performed By: #### G LULS #### Point of Care testing , Lymphocytes/100 WBC (Bld) 9.2 % Normal . [facility] Comment on above: Performed By: #### G LULS #### Point of Care testing , MCH (RBC) [Entitic mass] 30.8 pg Normal 27.5-35.2 [facility] Comment on above: Performed By: #### G LULS #### Point of Care testing , MCV (RBC) [Entitic vol] 92.2 fL Normal 83.5-101 [facility] Comment on above: Performed By: #### G LULS #### Point of Care testing , Mean Corpuscular HGB Conc 33.4 g/dL Normal 32.5-35.6 [facility] Comment on above: Performed By: #### G LULS #### Point of Care testing , Monocytes (Bld) [#/Vol] 1.6 10*3/uL High 0.0-0.8 [facility] Comment on above: Performed By: #### G LULS #### Point of Care testing , Monocytes/100 WBC (Bld) 22.19 % High 0.00-20.00 [facility] Comment on above: Result Comment: For adults in ED, MDW > 20.0 may be associated with a higher risk of sepsis during the first 12 hrs of hospital admission Performed By: #### G LULS #### Point of Care testing , Monocytes/100 WBC (Bld) 17.7 % Normal . [facility] Comment on above: Performed By: #### G LULS #### Point of Care testing , Neutrophils (Bld) [#/Vol] 6.3 10*3/uL Normal 1.8-7.7 [facility] Comment on above: Performed By: #### G LULS #### Point of Care testing , Neutrophils/100 WBC (Bld) 71.5 % Normal . [facility] Comment on above: Performed By: #### Debbie COLON #### Point of Care testing , NRBC% 0.1 /100{WBC} Normal 0-0.5 [facility] Comment on above: Performed By: #### Debbie COLON #### Point of Care testing , Ovalocytes Slight Normal [facility] Comment on above: Performed By: #### Debbie COLON #### Point of Care testing , Platelet Estimate Normal Normal Normal [facility] Comment on above: Performed By: #### Debbie MORENOLS #### Point of Care testing , Platelet mean volume (Bld) [Entitic vol] 8.5 fL Normal 6.6-10.1 [facility] Comment on above: Performed By: #### Debbie COLON #### Point of Care testing , Platelet Morphology Normal Normal Normal [facility] Comment on above: Performed By: #### Debbie COLON #### Point of Care testing , Platelets (Bld) [#/Vol] 223 10*3/uL Normal 150-450 [facility] Comment on above: Performed By: #### Debbie COLON #### Point of Care testing , Poikilocytosis Slight Normal [facility] Comment on above: Performed By: #### Debbie MORENOLS #### Point of Care testing , RBC (Bld) [#/Vol] 3.62 10*6/uL Low 3.90-5.60 [facility] Comment on above: Performed By: #### Debbie MORENOLS #### Point of Care testing , WBC (Bld) [#/Vol] 8.8 10*3/uL Normal 4.1-10.5 [facility] Comment on above: Performed By: #### Debbie MORENOLS #### Point of Care testing , Superficial Wound Cultureon 04-09-2023 Superficial Wound Culture Comment left ft wound ORGANISM: Proteus mirabilis (O:PROMIR) Quantity of Growth Moderate Growth Aerobic BRYAN Charge (NMIC56) --- SUSCEPTIBILITY -- ORGANISM: O:PROMIR ANTIBIOTIC INTERPRETATION BRYAN Amikacin S <16 Amoxacillin/K Clavulanate S <8 Ampicillin S <8 Ampicillin/Sulbactam S <4 Aztreonam S <4 Cefazolin S 4 Cefepime S <2 Ceftazidime S <1 Ceftazidime/Avibactam S <4 Ceftolozane/Tazobactam S <2 Ceftriaxone S <1 Cefuroxime S <4 Ciprofloxacin R >2 Ertapenem S <0.5 Gentamicin S <2 Levofloxacin R 4 Meropenem S <1 Meropenem/Vaborbactam S <2 Piperacillin/Tazobacta m S <8 Tobramycin S <2 Trimethoprim/Sulfameth oxazole S <0.5 S = SUSCEPTIBLE I = INTERMEDIATE R = RESISTANT BLANK = DATA NOT AVAILABLE, OR DRUG NOT ADVISABLE OR TESTED R* = RESISTANCE DUE TO EXTENDED SPECTRUM BETA-LACTAMASES ESBL = EXTENDED SPECTRUM BETA-LACTAMASE TFG = THYMIDINE-DEPENDENT STRAIN GRACE = BETA-LACTAMASE POSITIVE IB = INDUCIBLE BETA-LACTAMASE. APPEARS IN PLACE OF 'S' WITH SPECIES KNOWN TO POSSESS INDUCIBLE BETA-LACTAMASES. POTENTIALLY THEY MAY BECOME RESISTANT TO ALL B-LACTAM DRUGS. PERFORMED BY: [place] [address] PATHOLOGIST DISTRICT DIRECTOR DEAN MCWILLIAMS M.D. [facility] Comment on above: Performed By: #### P P #### [address] XR foot LT min 3V*on 024 XR foot LT min 3V* [facility] [place] [address] XRay Report Signed Patient: Corbin Murphy MR#: [id number] : 1955 Acct:[id number] Age/Sex: 67 / M ADM Date: 04/09/23 Loc: ER Room: Type: [facility] ER Attending Dr: Copies to: DO Autumn Marquez DO, LAZ Ordering Provider: Autumn Allen DO, RES Date of Service: 04/09/23 XR/XR foot LT min 3V*: Skin/Abscess/Foreign Body 3 views left foot plain film COMPARISON:None HISTORY: Left and medial first metatarsal joint wound. Left fifth toe wound. ACUTE FINDINGS: The second third proximal phalanx fractures. Erosive changes of the medial portion of the first metatarsal head adjacent to the soft tissue wound defect concerning for osteomyelitis. DEGENERATIVE CHANGE: Unremarkable SOFT TISSUE FINDINGS: Atherosclerosis JOINT EFFUSION: None POSTOP CHANGES: None BONE MINERALIZATION: Adequate XR/XR foot LT min 3V* IMPRESSION: No focal osteolysis of the lateral portion of the first metatarsal head concerning for osteomyelitis. Subjacent to the soft tissue wound defect. Indeterminate age fractures of the second and third proximal phalanges. Impression dictated by: Uriah Hays M.D.04/09/2023 4:49 PM Dictation Location: [place] [address] Transcribed By: [facility] 04/09/231648 Dictated By: Uriah Hays DO 04/09/231645 Signed By: 04/09/231648 [facility] Follow-Upon 03-15-2023 Follow-Up [id number] Corbin Murphy 1955 [facility] Provider Department Center 03/15/2023 DEIDRE GREEN JG [facility] No family history on file Level of Service:71035 MO POSTOP FOLLOW UP VISIT RELATED TO ORIGINAL PX Reason for Visit and Comments: Follow-up [583091] - Check maturation Rbrac-ceph AVF created on 01/18/23 [facility] Follow-Upon 02-06-2023 Follow-Up [id number] Cole 1955 M Date Provider Department Center 02/06/2023 503DEIDRE GUPTA HVJG [facility] No family history on file Level of Service:11731 MO POSTOP FOLLOW UP VISIT RELATED TO ORIGINAL PX Reason for Visit and Comments: Post-op [483] - S/P RUE AV Fistula creation on 01/18/23 [facility] 29on 01-21-2023 29 Addendum created 01/21/23 1344 by Leanne Chavez MD Clinical Note Signed [facility] APTTon 01-18-2023 ACTIVATED PARTIAL THROMBOPLASTIN TIME IN PPP BY COAGULATION ASSAY 29.4 Seconds Normal 25.0-35.0 [facility] Comment on above: Result Comment: Clin ical significance of the APTT is questionable in the presence of heparin. Performed By: #### L [id number] #### [facility] ([facility]) [address] [place] [address] Anesthesiaon 01-18-2023 Anesthesia [id number] GuánicaCorbin 1955 M Date Provider Department Center 01/18/2023 4032-JOSÉ LUNDBERG [facility] Medical C No family history on file Normal [facility] BASIC METABOLIC PANELon Anion gap [Moles/Vol] 16 mmol/L Normal 7-20 [facility] Comment on above: Performed By: #### L [id number] ####[facility] ([facility])[address] [place] [address] Calcium [Mass/Vol] 9.6 mg/dL Normal 8.6-10.3 [facility] Comment on above: Performed By: #### L [id number] ####[facility] ([facility] [place] [address] Chloride [Moles/Vol] 100 mmol/L Normal 98-[address] [facility] Comment on above: Performed By: #### L [id number] ####[facility] ([facility])[address] [place] [address] CO2 [Moles/Vol] 23 mmol/L Normal 21-31 [facility] Comment on above: Performed By: #### L [id number] ####[facility] ([facility])[address] [place] [address] Creatinine [Mass/Vol] 7.03 mg/dL High 0.70-1.30 [facility] Comment on above: Performed By: #### L [id number] ####[facility] ([facility])[address] [place] [address] GLOMERULAR FILTRATION RATE ML/MIN/1.73 SQ M.PREDICTED 7.9 mL/min/1.73m*2 Low >60.0 [facility] Comment on above: Result Comment: The [facility]???s estimated glomerular filtration rate (eGFR) will no [...] of individuals. Performed By: #### L [id number] ####[facility] ([facility])[address] [place] [address] Glucose [Mass/Vol] 96 mg/dL Normal 70-100 [facility] Comment on above: Performed By: #### L [id number] ####[facility] ([facility])[address] [place] [address] Potassium [Moles/Vol] 3.4 mmol/L Low 3.5-5.1 [facility] Comment on above: Performed By: #### L [id number] ####[facility] ([facility])[address] [place] [address] Sodium [Moles/Vol] 136 mmol/L Normal 136-145 [facility] Comment on above: Performed By: #### L [id number] ####[facility] ([facility])[address] [place] [address] Urea nitrogen [Mass/Vol] 19 mg/dL Normal 7-25 [facility] Comment on above: Performed By: #### L [id number] ####[facility] ([facility])[address] [place] [address] UREA NITROGEN/CREATININE (MASS RATIO) IN SER/PLAS 2.7 Normal [facility] Comment on above: Performed By: #### L [id number] ####[facility] ([facility])[address] [place] [address] CBCon 01-18-2023 Erythrocyte distribution width (RBC) [Ratio] 14.2 % Normal 11.5-15.0 [facility] Comment on above: Performed By: #### L [id number] #### [facility] ([facility]) [address] [place] [address] ERYTHROCYTE MEAN CORPUSCULAR HEMOGLOBIN CONCENTRATION (G/DL) BY AUTOMATED 33.2 g/dL Normal 32.0-35.0 [facility] Comment on above: Performed By: #### L [id number] #### [facility] ([facility]) [address] [place] [address] Hematocrit (Bld) [Volume fraction] 35.8 % Low 39.0-55.0 [facility] Comment on above: Performed By: #### L [id number] #### [facility] ([facility]) [address] [place] [address] Hemoglobin (Bld) [Mass/Vol] 11.9 g/dL Low 13.0-17.0 [facility] Comment on above: Performed By: #### L [id number] #### [facility] ([facility]) [address] [place] [address] MCH (RBC) [Entitic mass] 31.2 pg Normal 27.0-33.0 [facility] Comment on above: Performed By: #### L [id number] #### [facility] ([facility]) [address] [place] [address] MCV (RBC) [Entitic vol] 93.7 fL Normal 82.0-98.0 [facility] Comment on above: Performed By: #### L [id number] #### [facility] ([facility]) [address] [place] [address] PLATELETS (10*3/UL) IN BLOOD AUTOMATED COUNT 189 10*3/uL Normal 150-400 [facility] Comment on above: Performed By: #### L [id number] #### [facility] ([facility]) [address] [place] [address] RBC (Bld) [#/Vol] 3.82 10*6/uL Low 4.20-5.70 [facility] Comment on above: Performed By: #### L [id number] #### [facility] ([facility]) [address] [place] [address] WBC (Bld) [#/Vol] 6.40 10*3/uL Normal 4.00-10.60 [facility] Comment on above: Performed By: #### L [id number] #### [facility] ([facility]) [address] [place] [address] Labon 01-18-2023 Lab [id number] Corbin Murphy 1955 Date Provider Department [place] 01/18/2023 2245-[facility] OPD LAB RESOURCE [facility] OPD [facility] No family history on file Normal [facility] MRSA/MSSA DNA NASALon 2022 MRSA DNA Negative Normal Negative [facility] Comment on above: Order Comment: Testi ng [...] preclude nasal colonization. Performed By: #### L [id number] ####[facility] ([facility])[address] [place] [address] MSSA DNA Negative Normal Negative [facility] Comment on above: Order Comment: Testi ng [...] preclude nasal colonization. Performed By: #### L [id number] ####[facility] ([facility])[address] [place] [address] NURSNOTEon 01-18-2023 NURSNOTE Prescription filled and sent home with patient. Cont with + thrill and bruit. Stable for DC home. [facility] NURSNOTE DC instructions reviewed with patient and mother, copy given. [facility] OPNOTEon 01-18-2023 OPNOTE -- Attestation signed by Evelyn Alarcon MD at 01/18/2023 2:03 PM I was present for the entire procedure. DATE OF PROCEDURE: 01/18/23 PATIENT NAME: Corbin Murphy SURGEON: Wilfredo Alarcon - Primary ASSISTANTS: Ana Snyder MD STAFF: Bank Consultant: Clifford Cheek RN Scrub Person: VELVET Schumacher Bank Consultant: NINOSKA CANO Scrub: Ron Gama CST PRE-OP DIAGNOSIS: ESRD POST-OP DIAGNOSIS: same PROCEDURE: Procedure(s): Right Radial Cephalic Fistula Creation - CPT Codes 91490,43825,54025,3683 0 (Right) ANESTHESIA: General EBL: 5 mL [...] Alarcon was present for the entire procedure. [facility] Orders Onlyon 01-18-2023 Orders Only [id number] Corbin Murphy 1955 Date Provider Department [place] 01/18/2023 [address] [place] [facility] No family history on file [facility] POCT GLUCOSE METER UNSOLICIT ED RESULTSon 01-18-2023 Glucose [Mass/Vol] 116 mg/dL High 70-105 [facility] Comment on above: Order Comment: Waive d Testing in the ED is performed under the ED CLIA certificate #[id number]. Result Comment: rtat e Performed By: #### L [id number] #### [facility] ([facility]) [address] [place] [address] POCT PERFUSION PANEL UNSOLIC ITED RESULTSon 01-18-2023 CO2 [Moles/Vol] 28.0 mmol/L Normal 21.0-29.0 [facility] Comment on above: Performed By: #### L [id number] ####[facility] ([facility])[address] [place] [address] Glucose [Mass/Vol] 116 mg/dL High 70-105 [facility] Comment on above: Performed By: #### L [id number] ####[facility] ([facility])[address] [place] [address] HCO3 (Bld) [Moles/Vol] 26.8 mmol/L Normal 23.0-28.0 [facility] Comment on above: Performed By: #### L [id number] ####[facility] ([facility])[address] [place] [place] [address] Hematocrit (Bld) [Volume fraction] 36 % Low 38-51 [facility] Comment on above: Performed By: #### L [id number] ####[facility] ([facility] [place] [address] Hemoglobin (Bld) [Mass/Vol] 12.2 g/dL Normal 12.0-17.0 [facility] Comment on above: Performed By: #### L [id number] ####[facility] ([facility])[address] [place] [address] POCT BASE EXCESS 2.0 mmol/L Normal -2.0-3.0 [facility] Comment on above: Performed By: #### L [id number] ####[facility] ([facility])[address] [place] [address] POCT IONIZED CALCIUM 1.24 mmol/L Normal 1.12-1.32 [facility] Comment on above: Performed By: #### L [id number] ####[facility] ([facility])[address] [place] [address] POCT PCO2 43.4 mmHg Normal 41.0-51.0 [facility] Comment on above: Performed By: #### L [id number] ####[facility] ([facility])[address] [place] [address] POCT PH 7.40 Normal 7.31-7.41 [facility] Comment on above: Performed By: #### L [id number] ####[facility] ([facility])[address] [place] [address] POCT PO2 43 mmHg Low 80-105 [facility] Comment on above: Performed By: #### L [id number] ####[facility] ([facility])[address] [place] [address] POCT SO2 78 % Low 95-98 [facility] Comment on above: Performed By: #### L [id number] ####[facility] ([employer])[address] [place] [address] Potassium [Moles/Vol] 3.5 mmol/L Normal 3.5-4.9 [facility] Comment on above: Performed By: #### L [id number] ####[facility] ([employer])[address] [place] [address] Sodium [Moles/Vol] 135 mmol/L Low 138.0-146.0 [facility] Comment on above: Performed By: #### L [id number] ####[facility] ([facility])[address] [place] [address] PROTIME-INRon 01-18-2023 INR IN PPP BY COAGULATION ASSAY 1.00 Normal 0.90-1.10 [facility] Comment on above: Result Comment: ACCC P [...] 1995;108:231S-246S. Performed By: #### L [id number] #### [facility] ([employer]) [address] [place] [address] PROTHROMBIN TIME (PT) IN PPP BY COAGULATION ASSAY 13.2 Seconds Normal 12.3-14.8 [facility] Comment on above: Performed By: #### L [id number] #### [facility] ([facility]) [address] [place] [address] Orders Onlyon 01-16-2023 Orders Only [id number] Corbin Murphy 1955 M Date Provider Department Center 01/16/2023 BEBE VICKERS HVCVASENDMicha [place] [facility] No family history on file Normal [facility] ANESon 01-15-2023 ANES Physical Exam Airway Mallampati: III TM distance: >3 FB Neck ROM: full Cardiovascular Rhythm: regular Rate: normal Dental Pulmonary Plan ASA 3 Moderate Normal [facility] HPon 01-15-2023 HP History Of Present Illness [...] ESRD (end stage renal disease) on dialysis ([facility]) [N18.6, Z99.2 (ICD-10-CM)] Right: Patent radial inflow artery with volume flow of 214 ml/min. Patent radial artery with biphasic waveforms. Average volume flow within radial to cephalic arteriovenous fistula is 410 ml/min. Patent outflow proximal cephalic vein with no evidence of stenosis or narrowing. Patent subclavian spectral Doppler waveforms. Notes: Indication: ESRD (end stage renal disease) on dialysis ([facility]) [N18.6, Z99.2 (ICD-10-CM)] Right: Patent radial inflow [...] Problems: End stage renal disease on dialysis ([facility]) Encounter for pre-operative examination 67 yo male with history of right upper extremity AVF who presents today for fistulogram Fistulogram today, if procedure goes well patient can be discharged after procedure. Ana Phan MD PGY-4 Vascular Surgery Resident 01/15/23 [facility] [place] 01-15-2023 ZOLTANNOTBenson RN educated pt on d/ c instructions. RN encouraged pt to voice any questions or concerns. Pt verbalizes no questions or concerns at this time. Pt was wheeled off of unit with all of belongings. [facility] Orders Onlyon 01-10-2023 Orders Only [id number] Corbin Murphy 1955 M Date Provider Department Center 01/10/2023 BEBE VICKERS HVCVASENDO [place] [facility] No family history on file [facility] Follow-Upon 01-09-2023 Follow-Up [id number] Corbin Murphy 1955 M Date Provider Department Center 01/09/2023 DEIDRE GREEN HVCVASENDO [facility] No family history on file Level of Service:12726 MO OFFICE/OUTPATIENT ESTABLISHED LOW MDM 20-29 MIN Reason for Visit and Comments: Follow-up [807054] - radiocephalic AV fistula creation 10/04/22 [facility] Follow-Upon 10-16-2022 Follow-Up [id number] Corbin Murphy 1955 M Date Provider Department Center 10/16/2022 116-ROSANNE ESPINOZA HVCVASENDO [place] [facility] No family history on file Level of Service:64135 MO OFFICE/OUTPT VISIT,PROCEDURE ONLY Reason for Visit and Comments: Follow-up [150027] - 2 week post op R AVF creation [facility] HPon 10-02-2022 [facility] Vascular Surgery HISTORY & PHYSICAL Reason for Admission: Right AV fistula creation History of Present Illness: Corbin Murphy is a 66 y.o. male with PMH significant for ESRD, diabetes, anemia, HTN, HLD, hypothyroidism, NC, and peripheral vascular disease. He presents today [...] % infusion, 20 mL/hr, intravenous, Continuous, Petra Dergoot MD, Last Rate: 20 mL/hr at 10/02/22 [...] for ESRD, diabetes, anemia, HTN, HLD, hypothyroidism, NC, and peripheral vascular disease who presents today for right AV fistula creation. Plan: Will proceed with right AV fistula creation today with Dr. Alarcon Risks, benefits, and alternatives were discussed with patient and he is agreeable Jessee Mitchell MD General Surgery Resident, PGY-1 Vascular Surgery Service 10/02/22 [facility] OPNOTEon 10-02-2022 OPNOTE -- Attestation signed [...] Gutierrez MD General Surgery PGY4 10/03/2022 Normal [facility] POCT PERFUSION PANEL UNSOLIC ITED RESULTSon 10-02-2022 CO2 [Moles/Vol] 26.0 mmol/L Normal 21.0-29.0 [facility] Comment on above: Performed By: #### L [id number] #### [facility] ([facility]) [address] [place] [address] Glucose [Mass/Vol] 154 mg/dL High 70-105 [facility] Comment on above: Performed By: #### L [id number] #### [facility] ([facility]) [address] [place] [address] HCO3 (Bld) [Moles/Vol] 24.5 mmol/L Normal 23.0-28.0 [facility] Comment on above: Performed By: #### L [id number] #### [facility] ([facility]) [address] [place] [address] Hematocrit (Bld) [Volume fraction] 43 % Normal 38-51 [facility] Comment on above: Performed By: #### L [id number] #### [facility] [address] [place] [address] Hemoglobin (Bld) [Mass/Vol] 14.6 g/dL Normal 12.0-17.0 [facility] Comment on above: Performed By: #### L [id number] #### [facility] [address] [place] [address] POCT BASE EXCESS -1.0 mmol/L Normal -2.0-3.0 [facility] Comment on above: Performed By: #### L [id number] #### [facility] ([facility]) [address] [place] [address] POCT IONIZED CALCIUM 1.26 mmol/L Normal 1.12-1.32 [facility] Comment on above: Performed By: #### L [id number] #### [facility] ([facility]) [address] [place] [address] POCT PCO2 41.3 mmHg Normal 41.0-51.0 [facility] Comment on above: Performed By: #### L [id number] #### [facility] ([facility]) [address] [place] [address] POCT PH 7.38 Normal 7.31-7.41 [facility] Comment on above: Performed By: #### L [id number] #### [facility] ([facility]) [address] [place] [address] POCT PO2 45 mmHg Low 80-105 [facility] Comment on above: Performed By: #### L [id number] #### [facility] ([facility]) [address] [place] [address] POCT SO2 79 % Low 95-98 [facility] Comment on above: Performed By: #### L [id number] #### [facility] ([facility]) [address] [place] [address] Potassium [Moles/Vol] 4.2 mmol/L Normal 3.5-4.9 [facility] Comment on above: Performed By: #### L [id number] #### [facility] ([facility]) [address] [place] [address] Sodium [Moles/Vol] 137 mmol/L Low 138.0-146.0 [facility] Comment on above: Performed By: #### L [id number] #### [facility] ([facility]) [address] [place] [address] US Arterial and Venous Mappi ngon 08-17-2022 US Arterial and Venous Mapping [facility] Consent for Treatmenton Consent for Treatment [id number] 0CD:127 [facility] Coding Queryon 08-10-2022 Coding Query [facility] Outside Recordson 08-02-2022 Outside Records [id number] 0CD:127 [facility] Consent for Treatmenton 07-12 Consent for Treatment [id number]#1.0 0CD:127 [facility] Heart and Vascular Office/Cl inic Noteon 07-30-2022 Heart and Vascular Office/Clinic Note Normal [facility] Comment on above: Result Comment: Elec tronically Signed By: Dorian FISH, Evelyn Lopez\.br\Date and Time Signed: 07/30/22 09:29 EDT Outside Recordson 07-30-2022 Outside Records [id number] CD:127 Normal [facility] Physician Orderon 07-30-2022 Physician Order [id number]. 00CD:127 [facility] Progress Note-Physicianon Progress Note-Physician [facility] Comment on above: Result Comment: Elec tronically Signed By: Vijaya SANDOVAL\.br\Date and Time Signed: 07/15/22 12:01 EDT\.br\Electronically Co-Signed By: Vijaya SANDOVAL\.br\Date and Time Co-Signed: 07/15/22 12:02 EDT\.br\Electronically Co-Signed By: Michael FISH, Fuentes Lemons\.br\Date and Time Co-Signed: 07/23/22 07:37 EDT C Blood Charcoalon Blood Culture Charcoal [facility] Comment on above: Performed By: #### 1 [id number] ####[facility] [id number] [place] [address] Blood Culture Charcoal [facility] Comment on above: Performed By: #### 1 [id number] ####[facility] [id number], [place] [address] Discharge Instructionson Discharge Instructions [id number]#1.0 0CD:127 [facility] Monitor Recordon 07-20-2022 Monitor Record [id number]#1. 00CD:127 [facility] Transfer Documentson 023 Transfer Documents [id number]#1.0 0CD:127 Normal [facility] BMPon 07-19-2022 Creatinine [Mass/Vol] 7.7 mg/dL Abnormal 0.5-1.3 [facility] Comment on above: Result Comment: Crit ical Result verified by previous result\Critical Result S_CREA:7.70 Called to JAVI WIN AT 3S by CATHY LERNER And Read Back For Confirmation at: 07/19/2022 08:27:40\Result S_CREA:7.70 Called to JAVI WIN AT 3S by CATHY LERNER And Read Back For Confirmation at: 07/19/2022 08:27:40 Performed By: #### 1 [id number], 3473217, 7049011 ####[facility] [address] [address] Anion gap [Moles/Vol] 9 mmol/L Normal 6-16 [facility] Comment on above: Performed By: #### 1 4683457, 5281738, 9638226 ####[facility] [address] Ave[place]am[place] [address] Calcium [Mass/Vol] 8.0 mg/dL Low 8.9-11.1 [facility] Comment on above: Performed By: #### 1 7376793, 2169145, 7233781 ####[facility] [address] AveNoram[address] [place] [address] Chloride [Moles/Vol] 104 mmol/L Normal 101-111 [facility] Comment on above: Performed By: #### 1 3532166, 4445402, 7358553 ####[facility] [address] AveNoramsterdam [place] [address] CO2 [Moles/Vol] 27 mmol/L Normal 21-31 [facility] Comment on above: Performed By: #### 1 5271293, 4110973, 3904172 ####[facility] [address] Ave[place]am[address] [place] [address] Glucose [Mass/Vol] 180 mg/dL Normal 55-199 [facility] Comment on above: Result Comment: If t his glucose result represents a fasting glucose, interpretation should refer to the following reference range: 55-99 mg/dL Performed By: #### 1 3318669, 6731798, 5619786 ####[facility] [address] [place] [address] Potassium [Moles/Vol] 3.7 mmol/L Normal 3.5-5.3 [facility] Comment on above: Performed By: #### 1 7857326, 2040264, 1643207 ####[facility] [address] [place] [address] Sodium [Moles/Vol] 136 mmol/L Normal 135-145 [facility] Comment on above: Performed By: #### 1 0335370, 5164641, 7693792 ####[facility] [address] [place] [address] Urea nitrogen [Mass/Vol] 18 mg/dL Normal 5-21 [facility] Comment on above: Performed By: #### 1 6160042, 9647422, 4600603 ####[facility] [address] [place] [address] Urea nitrogen/Creatinine [Mass ratio] 2 No Units Low 10-20 [facility] Comment on above: Performed By: #### 1 3956315, 0296418, 8040147 ####[facility] [address] [place] [address] C Blood Charcoalon 3 Blood Culture Charcoal Normal [facility] Comment on above: Performed By: #### 1 4394937 ####[facility] [address] [place] [address] CBC w/Indiceson 07-19-2022 Erythrocyte distribution width (RBC) [Ratio] 17.6 % High 10.9-14.2 [facility] Comment on above: Performed By: #### 1 9023583, 3310553, 6243159 ####[facility] [address] [place] [address] Hematocrit (Bld) [Volume fraction] 25.0 % Low 37.7-49.0 [facility] Comment on above: Performed By: #### 1 4719884, 1302006, 7209450 ####[address] [address] Hemoglobin (Bld) [Mass/Vol] 8.3 g/dL Low 13.5-17.5 [facility] Comment on above: Performed By: #### 1 5595952, 3670622, 4346890 ####[address] [address] MCH (RBC) [Entitic mass] 30.0 pg Normal 27.0-34.0 [facility] Comment on above: Performed By: #### 1 0970082, 3615653, 2635821 ####[address] [address] MCHC (RBC) [Mass/Vol] 33.4 g/dL Normal 31.4-36.0 [facility] Comment on above: Performed By: #### 1 5369235, 9698913, 0141981 ####[address] [address] MCV (RBC) [Entitic vol] 90.1 fL Normal 80.0-100.0 [facility] Comment on above: Performed By: #### 1 9186321, 4568731, 0096099 ####[address] [address] Platelet mean volume (Bld) [Entitic vol] 8.0 fL Normal 6.4-10.8 [facility] Comment on above: Performed By: #### 1 6345537, 1404203, 2408727 ####[address] [address] Platelets (Bld) [#/Vol] 204.0 E9/L Normal 150.0-500.0 [facility] Comment on above: Performed By: #### 1 7194438, 0333536, 5839802 ####[address] [address] RBC (Bld) [#/Vol] 2.8 E12/L Low 4.3-5.9 [facility] Comment on above: Performed By: #### 1 7910683, 6478689, 5659608 ####[facility] [address] [place] [address] WBC corrected for nucl RBC Auto (Bld) [#/Vol] 6.1 E9/L Normal 4.0-11.0 [facility] Comment on above: Performed By: #### 1 5894757, 8798217, 9791705 ####[facility] [address] [place] [address] Capillary Glucose POCon Glucose [Mass/Vol] 198 mg/dL High 55-[address] [place] [address] Comment on above: Result Comment: Run Lab ConfirmationNo Coverage GivenInsulin Started Performed By: #### 2 [id number] ####[facility] [address] [place] [address] Glucose [Mass/Vol] 187 mg/dL High - [facility] Comment on above: Result Comment: Ambrocio vargas RN/ Performed By: #### 2 09284948 ####[facility] [address] [place] [address] Glucose [Mass/Vol] 110 mg/dL High - [facility] Comment on above: Result Comment: Ambrocio vargas RN/ Performed By: #### 2 25201734 ####[facility] [address] [place] [address] Glucose [Mass/Vol] 162 mg/dL High - [facility] Comment on above: Result Comment: Ambrocio vargas RN/ Performed By: #### 2 36502353 ####[facility] [address] [place] [address] Echo Transthoracic Completeo n 07-19-2022 Echo Transthoracic Complete Normal [facility] Inpatient Clinical Summaryon 07-19-2022 Inpatient Clinical Summary Normal [facility] Inpatient Patient Summaryon 07-19-2022 Inpatient Patient Summary Normal [facility] Inpatient Patient Summary Normal [facility] Interdisciplinary Note - Paresh e Manageron 07-19-2022 Interdisciplinary Note - Supervisor [employer] [facility] Comment on above: Result Comment: Elec tronically Signed By: Sarah Tena\.br\Date and Time Signed: 07/19/22 10:50 EDT Monitor Recordon 07-19-2022 Monitor Record [id number]#1. 00CD:127 [facility] Monitor Record [id number] 60 [id number]#1. 00CD:127 [facility] Monitor Record [id number] 60 [id number]#1. 00CD:127 [facility] Monitor Record [id number]#1. 00CD:127 [facility] Monitor Record [id number] 60 [id number]#1. 00CD:127 [facility] Progress Note-Nurseon 2022 Progress Note-Nurse [id number] 60 [id number]#1. 00CD:127 [facility] Progress Note-Nurse [id number] 60 [id number]#1. 00CD:127 [facility] Progress Note-Physicianon Progress Note-Physician [facility] Comment on above: Result Comment: Elec tronically Signed By: Cristino [place] MD\.br\Date and Time Signed: 07/19/22 09:34 EDT eGFRon 07-19-2022 GFR/1.73 sq M.predicted among non-blacks MDRD (S/P/Bld) [Vol rate/Area] 7 mL/min/1.73 m2 Low >=59 [facility] Comment on above: Order Comment: Order added by Discern Expert. Result Comment: [employer] jm kidney disease could be indicated at eGFR's of less than 60 mL/min/1.73m2. Kidney failure is indicated at less than 15 mL/min/1.73m2. Performed By: #### 1 0166384, 8182609, 2187616 ####[facility] [address] [place] [address] BMPon 07-18-2022 Creatinine [Mass/Vol] 9.7 mg/dL Abnormal 0.5-1.3 [facility] Comment on above: Result Comment: Crit ical Result verified by repeat analysis\Critical Result S_CREA:9.70 Called to MARC SRINIVASAN AT 3S by DK DAVIES And Read Back For Confirmation at: 07/18/2022 07:11:52\Result S_CREA:9.70 Called to MARC SRINIVASAN AT 3S by DK DAVIES And Read Back For Confirmation at: 07/18/2022 07:11:52 Performed By: #### 2 986717, 5762997, 3602025, 85480032 ####[facility] [address] [facility] [place] [address] Anion gap [Moles/Vol] 15 mmol/L Normal 6-16 [facility] Comment on above: Performed By: #### 2 329742, 3072436, 7374049, 41401475 ####[facility] [address]Nlaw[address]+[place] [address] Calcium [Mass/Vol] 8.1 mg/dL Low 8.9-11.1 [facility] Comment on above: Performed By: #### 2 305171, 0637365, 3976417, 21519291 ####[facility] [address] AveNlawrence+[place] [address] Chloride [Moles/Vol] 104 mmol/L Normal 101-111 [facility] Comment on above: Performed By: #### 2 742967, 8015663, 0985441, 33944120 ####[facility] [address] [place] [address] CO2 [Moles/Vol] 23 mmol/L Normal 21-31 [facility] Comment on above: Performed By: #### 2 082191, 6203234, 3445417, 90747666 ####[facility] [address] AveNlaw[address]+[place] [address] Glucose [Mass/Vol] 131 mg/dL Normal 55-199 [facility] Comment on above: Result Comment: If t his glucose result represents a fasting glucose, interpretation should refer to the following reference range: 55-99 mg/dL Performed By: #### 2 894954, 1895682, 0917304, 12957654 ####[facility] [address] [place] [address] Potassium [Moles/Vol] 3.8 mmol/L Normal 3.5-5.3 [facility] Comment on above: Performed By: #### 2 680420, 0567633, 9034611, 18102057 ####[facility] [address] [place] [address] Sodium [Moles/Vol] 138 mmol/L Normal 135-145 [facility] Comment on above: Performed By: #### 2 265056, 0372424, 5805530, 72280043 ####[facility] [address] [place] [address] Urea nitrogen [Mass/Vol] 29 mg/dL High 5-21 [facility] Comment on above: Performed By: #### 2 147089, 7853870, 9497731, 69641108 ####[facility] [address] [place] [address] Urea nitrogen/Creatinine [Mass ratio] 3 No Units Low 10-20 [facility] Comment on above: Performed By: #### 2 073305, 4773985, 5985259, 82491041 ####[facility] [address] [place] [address] C Tissueon 07-18-2022 Tissue Culture Normal [facility] Comment on above: Performed By: #### 2 538661 ####[facility] [address] [place] [address] CBC w/Indiceson 07-18-2022 Erythrocyte distribution width (RBC) [Ratio] 17.2 % High 10.9-14.2 [facility] Comment on above: Performed By: #### 2 155885, 7416171, 5634191, 78110331 ####[place] [address] [place] [address] Hematocrit (Bld) [Volume fraction] 25.0 % Low 37.7-49.0 [facility] Comment on above: Performed By: #### 2 225199, 0624814, 3721654, 59592799 ####[place] [address] Hemoglobin (Bld) [Mass/Vol] 8.5 g/dL Low 13.5-17.5 [facility] Comment on above: Performed By: #### 2 593859, 5599614, 3406482, 92640545 ####[place] [address] MCH (RBC) [Entitic mass] 30.3 pg Normal 27.0-34.0 [facility] Comment on above: Performed By: #### 2 755586, 5279374, 8964859, 61330422 ####[place] [address] MCHC (RBC) [Mass/Vol] 33.9 g/dL Normal 31.4-36.0 [facility] Comment on above: Performed By: #### 2 925319, 4324912, 0574821, 45694368 ####[place] [address] MCV (RBC) [Entitic vol] 89.4 fL Normal 80.0-100.0 [facility] Comment on above: Performed By: #### 2 858377, 8530728, 5084171, 37955154 ####[place] [address] Platelet mean volume (Bld) [Entitic vol] 7.2 fL Normal 6.4-10.8 [facility] Comment on above: Performed By: #### 2 719686, 7074639, 6977870, 79301192 ####[place] [address] Platelets (Bld) [#/Vol] 187.0 E9/L Normal 150.0-500.0 [facility] Comment on above: Performed By: #### 2 512627, 8925389, 2328719, 65100041 ####[facility] [address] [place] [address] RBC (Bld) [#/Vol] 2.8 E12/L Low 4.3-5.9 [facility] Comment on above: Performed By: #### 2 944049, 0450702, 3488371, 96541060 ####[facility] [address] [place] [address] WBC corrected for nucl RBC Auto (Bld) [#/Vol] 5.6 E9/L Normal 4.0-11.0 [facility] Comment on above: Performed By: #### 2 496615, 0456074, 6045580, 73254207 ####[facility] [address] [place] [address] Capillary Glucose POCon 06-0 Glucose [Mass/Vol] 288 mg/dL High 55-99 [facility] Comment on above: Result Comment: Ambrocio LEIAS Performed By: #### 2 52003358 ####[facility] [address] [place] [address] Glucose [Mass/Vol] 267 mg/dL High 55-99 [facility] Comment on above: Result Comment: Ambrocio ELIAS Performed By: #### 2 27763149 ####[facility] [address] [place] [address] Glucose [Mass/Vol] 122 mg/dL High 55-99 [facility] Comment on above: Result Comment: Ambrocio ELIAS Performed By: #### 2 19223430 ####[facility] [address] [place] [address] Glucose [Mass/Vol] 129 mg/dL High 55-99 [facility] Comment on above: Result Comment: Ambrocio ELIAS Performed By: #### 2 19062716 ####[facility] [address] [place] [address] Interdisciplinary Note - Paresh e Manageron 07-18-2022 Interdisciplinary Note - Supervisor [employer] [facility] Comment on above: Result Comment: Elec tronically Signed By: Alaina Ragland RN\.br\Date and Time Signed: 07/18/22 11:15 EDT IntraOperative Documentson 0 07-18-2022 IntraOperative Documents [id number]#1. 00CD:127 [facility] Message from Medicareon Message from Medicare [id number]#1. 00CD:127 [facility] Message from Medicare [id number]#1.0 0CD:127 [facility] Monitor Recordon 07-18-2022 Monitor Record [id number]#1. 00CD:127 [facility] Monitor Record [id number] 60 [id number]#1. 00CD:127 [facility] Monitor Record [id number] 60 [id number]#1. 00CD:127 [facility] Monitor Record [id number] 60 [id number]#1. 00CD:127 [facility] Progress Note - Pharmacyon 0 07-18-2022 Progress Note - Pharmacy [facility] Progress Note-Physicianon Progress Note-Physician [facility] Comment on above: Result Comment: Elec tronically Signed By: Vijaya SANDOVAL\.br\Date and Time Signed: 07/18/22 13:34 EDT\.br\Electronically Co-Signed By: Pedro ARAUZ MD\.br\Date and Time Co-Signed: 07/18/22 16:54 EDT Progress Note-Physician [facility] Comment on above: Result Comment: Elec tronically Signed By: Sarah Torres NP\.br\Date and Time Signed: 07/17/22 18:08 EDT\.br\Electronically Co-Signed By: Vane Miller MD\.br\Date and Time Co-Signed: 07/18/22 13:58 EDT Progress Note-Physician Normal [facility] Comment on above: Result Comment: Elec tronically Signed By: Vane Miller MD\.br\Date and Time Signed: 07/18/22 13:15 EDT Progress Note-Physician Normal [facility] Comment on above: Result Comment: Elec tronically Signed By: Vijaya SANDOVAL\.br\Date and Time Signed: 07/17/22 11:34 EDT\.br\Electronically Co-Signed By: Pedro ARAUZ MD\.br\Date and Time Co-Signed: 07/18/22 08:23 EDT Vanco Troughon 07-18-2022 VANCOMYCIN 19 microgram/mL Normal 10-20 [facility] Comment on above: Order Comment: Pleas e draw one hour prior to next dose at on . Thank you. Performed By: #### 2 032626, 9764812, 0038903, 33614359 ####[facility] [address] [place] [address] eGFRon 07-18-2022 GFR/1.73 sq M.predicted among non-blacks MDRD (S/P/Bld) [Vol rate/Area] 5 mL/min/1.73 m2 Low >=59 [facility] Comment on above: Order Comment: Order added by Discern Expert. Result Comment: [employer] jm kidney disease could be indicated at eGFR's of less than 60 mL/min/1.73m2. Kidney failure is indicated at less than 15 mL/min/1.73m2. Performed By: #### 2 790143, 6860134, 0241687, 45225981 ####[facility] [address] [place] [address] BMPon 07-17-2022 Creatinine [Mass/Vol] 8.0 mg/dL Abnormal 0.5-1.3 [facility] Comment on above: Result Comment: Crit ical Result verified by repeat analysis\Critical Result S_CREA:8.00 Called to SILVIO ARZOLA AT 3S by MARC ROSALES And Read Back For Confirmation at: 07/17/2022 09:09:10\Result S_CREA:8.00 Called to SILVIO ARZOLA AT 3S by MARC ROSALES And Read Back For Confirmation at: 07/17/2022 09:09:10 Performed By: #### 1 4176922, 4018030 ####[facility] [address] [place] [address] Urea nitrogen [Mass/Vol] 23 mg/dL High 5-21 [facility] Comment on above: Performed By: #### 1 7567284, 7762286 ####[facility] [address] [place] [address] Urea nitrogen/Creatinine [Mass ratio] 3 No Units Low 10-20 [facility] Comment on above: Performed By: #### 1 0643147, 7412064 ####[facility] [address] [place] [address] Anion gap [Moles/Vol] 14 mmol/L Normal 6-16 [facility] Comment on above: Performed By: #### 1 5855191, 2158842 ####[facility] [address] [place] [address] Calcium [Mass/Vol] 7.8 mg/dL Low 8.9-11.1 [facility] Comment on above: Performed By: #### 1 0346756, 8387095 ####[facility] [address]Nlaw[address] [address] Chloride [Moles/Vol] 100 mmol/L Low 101-111 [facility] Comment on above: Performed By: #### 1 4790360, 5798543 ####[facility] [address]Nlaw[address]+[place] [address] CO2 [Moles/Vol] 27 mmol/L Normal 21-31 [facility] Comment on above: Performed By: #### 1 8761539, 1124582 ####[facility] [address] [place] [address] Glucose [Mass/Vol] 195 mg/dL Normal 55-199 [facility] Comment on above: Result Comment: If t his glucose result represents a fasting glucose, interpretation should refer to the following reference range: 55-99 mg/dL Performed By: #### 1 6280747, 7590246 ####[facility] [address] [facility] [place] [address] Potassium [Moles/Vol] 4.1 mmol/L Normal 3.5-5.3 [facility] Comment on above: Performed By: #### 1 8846531, 8756538 ####[facility] [address] [facility] [place] [address] Sodium [Moles/Vol] 137 mmol/L Normal 135-145 [facility] Comment on above: Performed By: #### 1 7499625, 3511161 ####[facility] [address] [place] [address] Capillary Glucose POCon 06-0 Glucose [Mass/Vol] 243 mg/dL High 55-99 [facility] Comment on above: Result Comment: Ambrocio ELIAS Performed By: #### 2 77406558 ####[facility] [address] [facility] [place] [address] Glucose [Mass/Vol] 327 mg/dL High 55-99 [facility] Comment on above: Result Comment: Ambrocio ELIAS Performed By: #### 2 58802743 ####[facility] [address] [facility] [place] [address] Glucose [Mass/Vol] 290 mg/dL High 55-99 [facility] Comment on above: Result Comment: Ambrocio ELIAS Performed By: #### 2 89478027 ####[facility] [address] [facility] [place] [address] Glucose [Mass/Vol] 188 mg/dL High 55-99 [facility] Comment on above: Result Comment: Ambrocio ELIAS Performed By: #### 2 77378040 ####[facility] [address] [place] [address] Consent for Anesthesiaon Consent for Anesthesia [id number]#1. 00CD:127 Normal [facility] H&P Updateon 07-17-2022 H&P Update [id number]#1. 00CD:127 [facility] Interdisciplinary Note - Paresh e Manageron 07-17-2022 Interdisciplinary Note - Supervisor [employer] [facility] Comment on above: Result Comment: Elec tronically Signed By: Sarah Tena\.asael\Date and Time Signed: 07/17/22 11:30 EDT IntraOperative Documentson 0 07-17-2022 IntraOperative Documents [id number]#1. 00CD:127 [facility] Main OR Intraoperative Recor don 07-17-2022 Main OR Intraoperative Record [facility] Monitor Recordon 07-17-2022 Monitor Record [id number]#1. 00CD:127 [facility] Monitor Record [id number] 60 [id number]#1. 00CD:127 [facility] Operative Reporton Operative Report [facility] Comment on above: Result Comment: Elec tronically Signed By: Dorian FISH, Evelyn Lopez\.br\Date and Time Signed: 07/17/22 13:42 EDT Progress Note-Physicianon Progress Note-Physician [facility] Comment on above: Result Comment: Elec tronically Signed By: Tray Solis DO, Gino Larson\.asael\Date and Time Signed: 07/17/22 17:48 EDT Progress Note-Physician [facility] Comment on above: Result Comment: Elec tronically Signed By: Alfredo Acosta M.D\.asael\Date and Time Signed: 07/17/22 14:03 EDT eGFRon 07-17-2022 GFR/1.73 sq M.predicted among non-blacks MDRD (S/P/Bld) [Vol rate/Area] 7 mL/min/1.73 m2 Low >=59 [facility] Comment on above: Order Comment: Order added by Discern Expert. Result Comment: [employer] jm kidney disease could be indicated at eGFR's of less than 60 mL/min/1.73m2. Kidney failure is indicated at less than 15 mL/min/1.73m2. Performed By: #### 1 [id number], 4531072 ####[facility] [address] [place] [address] BMPon 07-16-2022 Creatinine [Mass/Vol] 11.6 mg/dL Abnormal 0.5-1.3 [facility] Comment on above: Result Comment: Crit ical Result verified by previous result\Critical Result S_CREA:11.60 Called to SILVIO ARZOLA AT 3S by CATHY YANN And Read Back For Confirmation at: 07/16/2022 11:03:55\Result S_CREA:11.60 Called to SILVIO ARZOLA AT 3S by CATHY YANN And Read Back For Confirmation at: 07/16/2022 11:03:55 Performed By: #### 1 5533886, 2025292, 7294289, 33513316 ####[facility] [address] [place] [address] Anion gap [Moles/Vol] 17 mmol/L High 6-16 [facility] Comment on above: Performed By: #### 1 9279661, 0720057, 2810957, 72523811 ####[facility] [address] [place] [address] Calcium [Mass/Vol] 8.4 mg/dL Low 8.9-11.1 [facility] Comment on above: Performed By: #### 1 2106709, 4586955, 2187085, 54152447 ####[facility] [address] [place] [address] Chloride [Moles/Vol] 100 mmol/L Low 101-111 [facility] Comment on above: Performed By: #### 1 2831377, 1924544, 9338698, 72517078 ####[facility] [address] [place] [address] CO2 [Moles/Vol] 24 mmol/L Normal 21-31 [facility] Comment on above: Performed By: #### 1 5490350, 8973164, 1907362, 74639136 ####[facility] [address] [place] [address] Glucose [Mass/Vol] 293 mg/dL High 55-199 [facility] Comment on above: Result Comment: If t his glucose result represents a fasting glucose, interpretation should refer to the following reference range: 55-99 mg/dL Performed By: #### 1 0832350, 1534250, 4592198, 26467785 ####[facility] [address] [place] [address] Potassium [Moles/Vol] 4.0 mmol/L Normal 3.5-5.3 [facility] Comment on above: Performed By: #### 1 3045257, 8127391, 4763794, 71720968 ####[facility] [address] [place] [address] Sodium [Moles/Vol] 137 mmol/L Normal 135-145 [facility] Comment on above: Performed By: #### 1 1593232, 7442470, 6984139, 42940163 ####[facility] [address] [place] [address] Urea nitrogen [Mass/Vol] 47 mg/dL High 5-21 [facility] Comment on above: Performed By: #### 1 7831481, 9789389, 4644962, 68832232 ####[facility] [address] [place] [address] Urea nitrogen/Creatinine [Mass ratio] 4 No Units Low 10-20 [facility] Comment on above: Performed By: #### 1 7830992, 6196430, 6688441, 76232670 ####[facility] [address] [place] [address] Capillary Glucose POCon Glucose [Mass/Vol] 207 mg/dL High [facility] Comment on above: Result Comment: Ambrocio vargas RN/ Performed By: #### 2 09416586 ####[facility] [address] [place] [address] Glucose [Mass/Vol] 167 mg/dL High [facility] Comment on above: Result Comment: Ambrocio vargas RN/ Performed By: #### 2 63580012 ####[facility] [address] [place] [address] Glucose [Mass/Vol] 266 mg/dL High [facility] Comment on above: Result Comment: Ambrocio vargas RN/ Performed By: #### 2 [id number] ####[facility] [address] [place] [address] Glucose [Mass/Vol] 309 mg/dL High [facility] Comment on above: Result Comment: Danielle joe Meter Performed By: #### 2 18482397 ####[facility] [address] [place] [address] Consent for Procedure/Surger yon 07-16-2022 Consent for Procedure/Surgery [id number]#1.0 0CD:127 Normal [facility] Electrocardiogram - 12 leado n 07-16-2022 Electrocardiogram - 12 lead [id number]#1.0 0CD:127 Normal [facility] Hct & Hgbon 07-16-2022 Hematocrit (Bld) [Volume fraction] 23.9 % Low 37.7-49.0 [facility] Comment on above: Performed By: #### 1 2603743, 5334718, 4295047, 39476470 ####[facility] [address] [place] [address] Hemoglobin (Bld) [Mass/Vol] 8.2 g/dL Low 13.5-17.5 [facility] Comment on above: Performed By: #### 1 6389657, 5244118, 3289095, 49675439 ####[facility] [address] [place] [address] Interdisciplinary Note - Paresh e Manageron 07-16-2022 Interdisciplinary Note - Supervisor [employer] CRM to room and patient is down in OR with Vascular Patient is here for an infection as an inpatient. Patient was diagnosed with LUE AVF infection and thrombosis Patient was accepted to [facility] and plan will be to DC there once medically ready [facility] Comment on above: Result Comment: Elec tronically Signed By: Tia White\.br\Date and Time Signed: 07/16/22 12:44 EDT Main OR PACU I Recordon Main OR PACU I Record [facility] Monitor Recordon 07-16-2022 Monitor Record [id number]#1. 00CD:127 [facility] Monitor Record [id number] 60 [id number]#1. 00CD:127 [facility] Monitor Record [id number]#1. 00CD:127 [facility] Monitor Record [id number]#1. 00CD:127 [facility] Progress Note - Pharmacyon 0 07-16-2022 Progress Note - Pharmacy [facility] Progress Note-Nurseon 2022 Progress Note-Nurse [id number]#1. 00CD:127 [facility] Progress Note-Physicianon Progress Note-Physician [facility] Comment on above: Result Comment: Elec tronically Signed By: Gino Feliz Jr, DO\.br\Date and Time Signed: 07/16/22 14:49 EDT Progress Note-Physician [facility] Comment on above: Result Comment: Elec tronically Signed By: Vijaya SANDOVAL\.br\Date and Time Signed: 07/16/22 11:35 EDT\.br\Electronically Co-Signed By: Pedro ARAUZ MD\.br\Date and Time Co-Signed: 07/16/22 12:52 EDT Progress Note-Physician Normal [facility] Comment on above: Result Comment: Elec tronically Signed By: Vane Miller MD\.br\Date and Time Signed: 07/16/22 12:12 EDT Vanco Troughon 07-16-2022 VANCOMYCIN 27 microgram/mL Abnormal 10-20 [facility] Comment on above: Result Comment: Crit ical Result verified by repeat analysis\Critical Result S_VANC_T:27.0 Called to SILVIO ARZOLA AT 3S by CATHY LERNER And Read Back For Confirmation at: 07/16/2022 07:34:50 Performed By: #### 1 9877878, 3442508, 5223809, 15676207 ####[facility] [address] [place] [address] eGFRon 07-16-2022 GFR/1.73 sq M.predicted among non-blacks MDRD (S/P/Bld) [Vol rate/Area] 4 mL/min/1.73 m2 Low >=59 [facility] Comment on above: Order Comment: Order added by Discern Expert. Result Comment: [employer] jm kidney disease could be indicated at eGFR's of less than 60 mL/min/1.73m2. Kidney failure is indicated at less than 15 mL/min/1.73m2. Performed By: #### 1 6532292, 0043075, 8601100, 72339026 ####[facility] [address] [place] [address] Auto Diffon 07-15-2022 Basophils/100 WBC (Bld) 1.2 % Normal 0.0-2.0 [facility] Comment on above: Order Comment: Order Added by Discern Expert. Performed By: #### 1 1788971, 5478753, 0599400, 7668064 ####[facility] [address] [place] [address] Basophils/Leukocytes Auto (Bld) [Pure # fraction] 0.1 E9/L Normal 0.0-0.2 [facility] Comment on above: Order Comment: Order Added by Discern Expert. Performed By: #### 1 2606693, 2823065, 3075353, 1138334 ####[address] [address] Eosinophils/100 WBC (Bld) 3.4 % Normal 0.0-8.0 [facility] Comment on above: Order Comment: Order Added by Discern Expert. Performed By: #### 1 4324613, 4375807, 9471358, 8026420 ####[address] [address] Eosinophils/Leukocyt es Auto (Bld) [Pure # fraction] 0.2 E9/L Normal 0.0-0.5 [facility] Comment on above: Order Comment: Order Added by Cayla Expert. Performed By: #### 1 2173331, 0345717, 4707750, 1709832 ####[address] [address] Lymphocytes/100 WBC (Bld) 11.3 % Low 14.0-50.0 [facility] Comment on above: Order Comment: Order Added by Discern Expert. Performed By: #### 1 5876662, 1240790, 2677029, 1479494 ####[address] [address] Lymphocytes/Leukocyt es Auto (Bld) [Pure # fraction] 0.6 E9/L Low 1.0-4.0 [facility] Comment on above: Order Comment: Order Added by Discern Expert. Performed By: #### 1 6175267, 0648652, 9801323, 9814265 ####[address] [address] Monocytes/100 WBC (Bld) 16.4 % High 4.0-14.0 [facility] Comment on above: Order Comment: Order Added by Discern Expert. Performed By: #### 1 8715471, 3521867, 1532603, 6467799 ####[place] [address] [address] Monocytes/Leukocytes Auto (Bld) [Pure # fraction] 0.9 E9/L Normal 0.2-1.0 [facility] Comment on above: Order Comment: Order Added by Discern Expert. Performed By: #### 1 1746207, 0579281, 4419964, 7929612 ####[address] [address] Neutrophils/100 WBC (Bld) 67.7 % Normal 36.0-75.0 [facility] Comment on above: Order Comment: Order Added by Discern Expert. Performed By: #### 1 8185072, 7524036, 6814720, 7739224 ####[address] [address] Neutrophils/Leukocyt es Auto (Bld) [Pure # fraction] 3.7 E9/L Normal 2.0-7.5 [facility] Comment on above: Order Comment: Order Added by Discern Expert. Performed By: #### 1 4500189, 4487735, 9583583, 0042315 ####[address] [address] CBC w/ Auto Diffon 3 Erythrocyte distribution width (RBC) [Ratio] 16.7 % High 10.9-14.2 [facility] Comment on above: Performed By: #### 1 1543518, 1308479, 4989617, 3088812 ####[address] [address] Hematocrit (Bld) [Volume fraction] 24.3 % Low 37.7-49.0 [facility] Comment on above: Performed By: #### 1 7294959, 0900959, 6053012, 0142684 ####[address] [address] Hemoglobin (Bld) [Mass/Vol] 8.0 g/dL Low 13.5-17.5 [facility] Comment on above: Performed By: #### 1 8682429, 5440065, 8737236, 7649440 ####[facility] [address] [place] [address] MCH (RBC) [Entitic mass] 29.7 pg Normal 27.0-34.0 [facility] Comment on above: Performed By: #### 1 6246197, 4115526, 0570322, 8734451 ####[address] [place] [address] MCHC (RBC) [Mass/Vol] 32.9 g/dL Normal 31.4-36.0 [facility] Comment on above: Performed By: #### 1 9563687, 0649439, 7123796, 9036949 ####[place] [address] MCV (RBC) [Entitic vol] 90.1 fL Normal 80.0-100.0 [facility] Comment on above: Performed By: #### 1 4480122, 0778530, 2938843, 1765417 ####[address] [address] Platelet mean volume (Bld) [Entitic vol] 7.9 fL Normal 6.4-10.8 [facility] Comment on above: Performed By: #### 1 0443107, 1627711, 6752792, 2098570 ####[address] [address] Platelets (Bld) [#/Vol] 219.0 E9/L Normal 150.0-500.0 [facility] Comment on above: Performed By: #### 1 7283150, 1165440, 9630054, 6671981 ####[address] [address] RBC (Bld) [#/Vol] 2.7 E12/L Low 4.3-5.9 [facility] Comment on above: Performed By: #### 1 5189913, 4250680, 1250569, 7150742 ####[address] [address] WBC corrected for nucl RBC Auto (Bld) [#/Vol] 5.5 E9/L Normal 4.0-11.0 [facility] Comment on above: Performed By: #### 1 6577078, 6896790, 7960762, 0078168 ####[facility] [address] [place] [address] CMPon 07-15-2022 Creatinine [Mass/Vol] 10.0 mg/dL Abnormal 0.5-1.3 [facility] Comment on above: Result Comment: Crit ical Result S_CREA:10.00 Called to HIRO VALERIO AT 3S by CATHY YANN And Read Back For Confirmation at: 07/15/2022 10:15:30\Result S_CREA:10.00 Called to HIRO VALERIO AT 3S by CATHY LERNER And Read Back For Confirmation at: 07/15/2022 10:15:30\ATTEMPTED TO CALL RESULT X2\Critical Result verified by previous result Performed By: #### 1 1723483, 7567539, 7699346, 3277867 ####[facility] [address] [place] [address] Albumin [Mass/Vol] 2.2 g/dL Low 3.3-5.0 [facility] Comment on above: Performed By: #### 1 1527583, 9452444, 0333754, 0589073 ####[address] [place] [address] Albumin/Globulin (S) [Mass conc ratio] 0.7 Low 1.1-2.2 [facility] Comment on above: Performed By: #### 1 6076857, 7496336, 2267952, 7821930 ####[address] [place] [address] ALP [Catalytic activity/Vol] 39 Int._Unit/L Normal 21-98 [facility] Comment on above: Performed By: #### 1 9916825, 7062663, 6641764, 9792661 ####[address] [place] [address] ALT No additional P-5'-P [Catalytic activity/Vol] 17 Int._Unit/L Normal 6-46 [facility] Comment on above: Performed By: #### 1 2774111, 0953822, 4703540, 7360354 ####[facility] [address] [place] [address] Anion gap [Moles/Vol] 15 mmol/L Normal 6-16 [facility] Comment on above: Performed By: #### 1 7107343, 3168310, 1313865, 1994146 ####[facility] [address] [place] [address] AST [Catalytic activity/Vol] 47 Int._Unit/L High 5-43 [facility] Comment on above: Performed By: #### 1 7967063, 8263999, 8970428, 6396281 ####[facility] [address] [place] [address] Bilirubin [Mass/Vol] 0.8 mg/dL Normal 0.0-1.1 [facility] Comment on above: Performed By: #### 1 5752903, 6861339, 9635213, 0938213 ####[facility] [address] [place] [address] Calcium [Mass/Vol] 8.6 mg/dL Low 8.9-11.1 [facility] Comment on above: Performed By: #### 1 6939125, 8704311, 6658295, 7976290 ####[facility] [address] [place] [address] Chloride [Moles/Vol] 100 mmol/L Low 101-111 [facility] Comment on above: Performed By: #### 1 9933611, 9166988, 0259250, 0233570 ####[facility] [address] [place] [address] CO2 [Moles/Vol] 24 mmol/L Normal 21-31 [facility] Comment on above: Performed By: #### 1 9213584, 7464712, 9720454, 1007843 ####[facility] [address] [place] [address] Globulin (S) [Mass/Vol] 3.2 g/dL Normal 1.4-4.0 [facility] Comment on above: Performed By: #### 1 9746963, 0855508, 2757779, 5394735 ####[facility] [address] [place] [address] Glucose [Mass/Vol] 202 mg/dL High 55-199 [facility] Comment on above: Result Comment: If t his glucose result represents a fasting glucose, interpretation should refer to the following reference range: 55-99 mg/dL Performed By: #### 1 2084583, 1190078, 5863733, 9377960 ####[facility] [address] [place] [address] Potassium [Moles/Vol] 3.7 mmol/L Normal 3.5-5.3 [facility] Comment on above: Performed By: #### 1 6692717, 4050369, 1424474, 1401152 ####[facility] [address] [place] [address] Protein [Mass/Vol] 5.4 g/dL Low 6.0-7.8 [facility] Comment on above: Performed By: #### 1 5777190, 0438165, 7581449, 6527015 ####[facility] [address] [place] [address] Sodium [Moles/Vol] 135 mmol/L Normal 135-145 [facility] Comment on above: Performed By: #### 1 8242318, 5288331, 0839426, 2545350 ####[facility] [address] [place] [address] Urea nitrogen [Mass/Vol] 42 mg/dL High 5-21 [facility] Comment on above: Performed By: #### 1 7896604, 5100792, 8601996, 0258764 ####[facility] [address] [place] [address] Urea nitrogen/Creatinine [Mass ratio] 4 No Units Low 10-20 [facility] Comment on above: Performed By: #### 1 9640802, 7006740, 8212917, 3178061 ####[facility] [address] [place] [address] Capillary Glucose POCon Glucose [Mass/Vol] 323 mg/dL High 55-99 [facility] Comment on above: Result Comment: Ambrocio vargas RN/ Performed By: #### 2 88060715 ####[address] [place] [address] Glucose [Mass/Vol] 297 mg/dL High - [facility] Comment on above: Performed By: #### 2 28966635 ####[address] [address] Glucose [Mass/Vol] 244 mg/dL High - [facility] Comment on above: Result Comment: Ambrocio vargas RN/ Performed By: #### 2 17770444 ####[address] [address] Glucose [Mass/Vol] 317 mg/dL High - [facility] Comment on above: Result Comment: Ambrocio ELIAS Performed By: #### 2 66781222 ####[address] [address] Glucose [Mass/Vol] 171 mg/dL High - [facility] Comment on above: Result Comment: Ambrocio ELIAS Performed By: #### 2 24135850 ####[facility] [address] [place] [address] Hep Bs Agon 07-15-2022 HBV surface Ag IA Ql Negative Invalid Interpretation Code Negative [facility] Comment on above: Result Comment: Perf ormed at: [facility] [address] [id number] PhD Jany Aparicio Performed By: #### 1 8425060, 3065551, 4635108, 5118554, 6254176, 5276016 ####[address] [place] [address] Interdisciplinary Note - Paresh e Manageron 07-15-2022 Interdisciplinary Note - Supervisor [employer] Pt is aware [facility] has accepted. Pt will see Vascular and ID this week. Ant dc TBD. 3MN was met today. CRM to follow. Normal [facility] Comment on above: Result Comment: Elec tronically Signed By: Sarah Tena\Date and Time Signed: 07/15/22 11:25 EDT Monitor Recordon 07-15-2022 Monitor Record [id number]#1. 00CD:127 Normal [facility] Monitor Record [id number] 60 [id number]#1. 00CD:127 Normal [facility] Monitor Record [id number] 60 [id number]#1. 00CD:127 Normal [facility] Monitor Record [id number]#1. 00CD:127 Normal [facility] eGFRon 07-15-2022 GFR/1.73 sq M.predicted among non-blacks MDRD (S/P/Bld) [Vol rate/Area] 5 mL/min/1.73 m2 Low >=59 [facility] Comment on above: Order Comment: Order added by Discern Expert. Result Comment: [employer] jm kidney disease could be indicated at eGFR's of less than 60 mL/min/1.73m2. Kidney failure is indicated at less than 15 mL/min/1.73m2. Performed By: #### 1 2079206, 8912364, 5317843, 3874698 ####[facility] [address] [place] [address] Auto Diffon 07-14-2022 Basophils/100 WBC (Bld) 0.7 % Normal 0.0-2.0 [facility] Comment on above: Order Comment: Order Added by Discern Expert. Performed By: #### 1 2742857, 6953070, 3360484, 8139354, 1244364, 3833283 ####[facility] [address] [place] [address] Basophils/Leukocytes Auto (Bld) [Pure # fraction] 0.1 E9/L Normal 0.0-0.2 [facility] Comment on above: Order Comment: Order Added by Discern Expert. Performed By: #### 1 6815593, 9659774, 5094896, 1333724, 1397652, 7419897 ####[address] [place] [address] Eosinophils/100 WBC (Bld) 1.1 % Normal 0.0-8.0 [facility] Comment on above: Order Comment: Order Added by Discern Expert. Performed By: #### 1 4790167, 8521020, 3707185, 1617698, 6003587, 0361040 ####[address] [address] Eosinophils/Leukocyt es Auto (Bld) [Pure # fraction] 0.1 E9/L Normal 0.0-0.5 [facility] Comment on above: Order Comment: Order Added by Discern Expert. Performed By: #### 1 5795725, 6304453, 4284529, 5776717, 5239369, 0083411 ####[address] [address] Lymphocytes/100 WBC (Bld) 1.7 % Low 14.0-50.0 [facility] Comment on above: Order Comment: Order Added by Discern Expert. Performed By: #### 1 2520725, 6842694, 8822885, 0650322, 4076966, 5371374 ####[address] [address] Lymphocytes/Leukocyt es Auto (Bld) [Pure # fraction] 0.2 E9/L Low 1.0-4.0 [facility] Comment on above: Order Comment: Order Added by Discern Expert. Performed By: #### 1 6817895, 1116592, 2014446, 6003050, 7744702, 3865326 ####[address] [address] Monocytes/100 WBC (Bld) 6.3 % Normal 4.0-14.0 [facility] Comment on above: Order Comment: Order Added by Discern Expert. Performed By: #### 1 0101453, 6435150, 2606225, 0072569, 1805359, 8675657 ####[facility] [address] [place] [address] Monocytes/Leukocytes Auto (Bld) [Pure # fraction] 0.7 E9/L Normal 0.2-1.0 [facility] Comment on above: Order Comment: Order Added by Discern Expert. Performed By: #### 1 2634926, 3525192, 0178660, 2057183, 3547942, 3071232 ####[facility] [address] [place] [address] Neutrophils/100 WBC (Bld) 90.2 % High 36.0-75.0 [facility] Comment on above: Order Comment: Order Added by Discern Expert. Performed By: #### 1 4115790, 6911519, 4240550, 6785798, 7640503, 8253703 ####[facility] [address] [place] [address] Neutrophils/Leukocyt es Auto (Bld) [Pure # fraction] 9.9 E9/L High 2.0-7.5 [facility] Comment on above: Order Comment: Order Added by Discern Expert. Performed By: #### 1 3559298, 9413580, 8595132, 6239906, 8958131, 7715826 ####[facility] [address] [place] [address] BMPon 07-14-2022 Creatinine [Mass/Vol] 7.2 mg/dL High 0.5-1.3 [facility] Comment on above: Performed By: #### 1 5738987, 6759272, 7372916, 0069508, 2021885, 3886111 ####[facility] [address] [place] [address] Anion gap [Moles/Vol] 15 mmol/L Normal 6-16 [facility] Comment on above: Performed By: #### 1 6576824, 8071548, 0138445, 0424724, 5493914, 1586310 ####[facility] [address] [place] [address] Calcium [Mass/Vol] 8.2 mg/dL Low 8.9-11.1 [facility] Comment on above: Performed By: #### 1 8967428, 6551518, 4405223, 4368110, 4406391, 0634352 ####[facility] [address] [place] [address] Chloride [Moles/Vol] 98 mmol/L Low 101-111 [facility] Comment on above: Performed By: #### 1 0859522, 8952769, 4854936, 2447350, 5653791, 5958799 ####[facility] [address] [place] [address] CO2 [Moles/Vol] 24 mmol/L Normal 21-31 [facility] Comment on above: Performed By: #### 1 8542049, 0125232, 6349479, 3976657, 6049401, 5717991 ####[facility] [address] [place] [address] Glucose [Mass/Vol] 190 mg/dL Normal 55-199 [facility] Comment on above: Result Comment: If t his glucose result represents a fasting glucose, interpretation should refer to the following reference range: 55-99 mg/dL Performed By: #### 1 4550675, 1257202, 8497726, 2990677, 7649835, 2352050 ####[facility] [address] [place] [address] Potassium [Moles/Vol] 3.7 mmol/L Normal 3.5-5.3 [facility] Comment on above: Performed By: #### 1 0001642, 0552461, 3630636, 3330827, 2469675, 0423448 ####[facility] [address] [place] [address] Sodium [Moles/Vol] 133 mmol/L Low 135-145 [facility] Comment on above: Performed By: #### 1 9429953, 3979400, 5127196, 3368721, 8578188, 5529961 ####[facility] [address] [place] [address] Urea nitrogen [Mass/Vol] 26 mg/dL High 5-21 [facility] Comment on above: Performed By: #### 1 0742402, 6763844, 4767387, 3642543, 9371808, 6912403 ####[facility] [address] [place] [address] Urea nitrogen/Creatinine [Mass ratio] 4 No Units Low 10-20 [facility] Comment on above: Performed By: #### 1 0635070, 1470999, 1938128, 5109818, 9133164, 1225304 ####[address] [place] [address] C Woundon 07-14-2022 Wound Culture Normal [facility] Comment on above: Performed By: #### 2 695097 ####[facility] [address] [place] [address] CBC w/ Auto Diffon Erythrocyte distribution width (RBC) [Ratio] 17.1 % High 10.9-14.2 [facility] Comment on above: Performed By: #### 1 3729408, 3881342, 2449809, 0840916, 2817198, 1818443 ####[address] [place] [address] Hematocrit (Bld) [Volume fraction] 25.5 % Low 37.7-49.0 [facility] Comment on above: Performed By: #### 1 3649555, 8718316, 7588344, 1573987, 7657035, 2063013 ####[facility] [address] [place] [address] Hemoglobin (Bld) [Mass/Vol] 8.5 g/dL Low 13.5-17.5 [facility] Comment on above: Performed By: #### 1 5684198, 0274009, 9479010, 9413087, 0785731, 0411471 ####[facility] [address] [place] [address] MCH (RBC) [Entitic mass] 29.6 pg Normal 27.0-34.0 [facility] Comment on above: Performed By: #### 1 5611413, 2310338, 2335204, 1005344, 4136521, 6650593 ####[address] [place] [address] MCHC (RBC) [Mass/Vol] 33.2 g/dL Normal 31.4-36.0 [facility] Comment on above: Performed By: #### 1 0539476, 0535015, 9331692, 3144532, 5055141, 8089960 ####[address] [address] MCV (RBC) [Entitic vol] 89.4 fL Normal 80.0-100.0 [facility] Comment on above: Performed By: #### 1 2378942, 6392250, 4136442, 0492417, 9013721, 6960217 ####[address] [address] Platelet mean volume (Bld) [Entitic vol] 7.6 fL Normal 6.4-10.8 [facility] Comment on above: Performed By: #### 1 4763341, 9759912, 7154447, 0830554, 1295746, 3328559 ####[address] [address] Platelets (Bld) [#/Vol] 219.0 E9/L Normal 150.0-500.0 [facility] Comment on above: Performed By: #### 1 8277190, 1337460, 3322733, 2667658, 3300767, 6009992 ####[address] [address] RBC (Bld) [#/Vol] 2.8 E12/L Low 4.3-5.9 [facility] Comment on above: Performed By: #### 1 1579506, 4166764, 6543170, 5803620, 8612528, 1952611 ####[facility] [address] [place] [address] WBC corrected for nucl RBC Auto (Bld) [#/Vol] 11.0 E9/L Normal 4.0-11.0 [facility] Comment on above: Performed By: #### 1 2707132, 0982646, 6237104, 6377125, 7380929, 4846340 ####[facility] [address] [place] [address] Capillary Glucose POCon Glucose [Mass/Vol] 233 mg/dL High 55-99 [facility] Comment on above: Performed By: #### 2 82234084 ####[facility] [address] [place] [address] Glucose [Mass/Vol] 144 mg/dL High 55-99 [facility] Comment on above: Result Comment: Ambrocio ELIAS Performed By: #### 2 42181581 ####[facility] [address] [place] [address] Glucose [Mass/Vol] 202 mg/dL High 55-99 [facility] Comment on above: Result Comment: Ambrocio ELIAS Performed By: #### 2 16779650 ####[facility] [address] [place] [address] Glucose [Mass/Vol] 180 mg/dL High 55-99 [facility] Comment on above: Result Comment: Ambrocio ELIAS Performed By: #### 2 58426054 ####[facility] [address] [place] [address] Interdisciplinary Note - Paresh e Manageron 07-14-2022 Interdisciplinary Note - Supervisor [employer] [facility] Comment on above: Result Comment: Elec tronically Signed By: Sarah Tena\Date and Time Signed: 07/14/22 13:10 EDT Lactic Acidon 07-14-2022 Lactate [Mass/Vol] 1.1 mmol/L Normal 0.5-2.2 [facility] Comment on above: Performed By: #### 1 9989354, 6223751, 0652840, 7612275, 1494855, 1589975 ####[facility] [address] [place] [address] Monitor Recordon 07-14-2022 Monitor Record [id number]#1. 00CD:127 Normal [facility] Monitor Record [id number]#1. 00CD:127 Normal [facility] Monitor Record [id number]#1. 00CD:127 Normal [facility] Progress Note-Physicianon Progress Note-Physician Normal [facility] Comment on above: Result Comment: Elec tronically Signed By: Vijaya SANDOVAL\.br\Date and Time Signed: 07/14/22 13:12 EDT\.br\Electronically Co-Signed By: Fuentes Rodriguez MD\.br\Date and Time Co-Signed: 07/14/22 14:51 EDT eGFRon 07-14-2022 GFR/1.73 sq M.predicted among non-blacks MDRD (S/P/Bld) [Vol rate/Area] 8 mL/min/1.73 m2 Low >=59 [facility] Comment on above: Order Comment: Order added by Discern Expert. Result Comment: [employer] jm kidney disease could be indicated at eGFR's of less than 60 mL/min/1.73m2. Kidney failure is indicated at less than 15 mL/min/1.73m2. Performed By: #### 1 7573704, 1035246, 4083948, 0372446, 3271566, 5647308 ####[facility] [address] [place] [address] BMPon 07-13-2022 Creatinine [Mass/Vol] 9.3 mg/dL Abnormal 0.5-1.3 [facility] Comment on above: Result Comment: Crit ical Result verified by repeat analysis\Critical Result S_CREA:9.30 Called to MARYURI MCKEON AT 3S by NEDA MACHUCA And Read Back For Confirmation at: 07/13/2022 06:50:42\Result S_CREA:9.30 Called to MARYURI MCKEON AT 3S by NEDA MACHUCA And Read Back For Confirmation at: 07/13/2022 06:50:42 Performed By: #### 1 1086743, 3277296, 2999526 ####[facility] [address] [place] [address] Anion gap [Moles/Vol] 16 mmol/L Normal 6-16 [facility] Comment on above: Performed By: #### 1 8927692, 0546806, 7474999 ####[facility] [address] [facility] [place] [address] Calcium [Mass/Vol] 8.9 mg/dL Normal 8.9-11.1 [facility] Comment on above: Performed By: #### 1 3248443, 3688390, 9921685 ####[facility] [address] [facility] [place] [address] Chloride [Moles/Vol] 101 mmol/L Normal 101-111 [facility] Comment on above: Performed By: #### 1 6416373, 2213291, 5311172 ####[facility] [address] [facility] [place] [address] CO2 [Moles/Vol] 23 mmol/L Normal 21-31 [facility] Comment on above: Performed By: #### 1 9514420, 8491214, 7578159 ####[facility] [address] [facility] [place] [address] Glucose [Mass/Vol] 266 mg/dL High 55-199 [facility] Comment on above: Result Comment: If t his glucose result represents a fasting glucose, interpretation should refer to the following reference range: 55-99 mg/dL Performed By: #### 1 3816864, 2004454, 7137966 ####[facility] [address] [facility] [place] [address] Potassium [Moles/Vol] 3.5 mmol/L Normal 3.5-5.3 [facility] Comment on above: Performed By: #### 1 2403565, 3141327, 9045453 ####[facility] [address] [place] [address] Sodium [Moles/Vol] 136 mmol/L Normal 135-145 [facility] Comment on above: Performed By: #### 1 1541615, 3194114, 2934262 ####[facility] [address] [place] [address] Urea nitrogen [Mass/Vol] 31 mg/dL High 5-21 [facility] Comment on above: Performed By: #### 1 2719578, 5048303, 5778971 ####[facility] [address] [facility] [place] [address] Urea nitrogen/Creatinine [Mass ratio] 3 No Units Low 10-20 [facility] Comment on above: Performed By: #### 1 6702653, 6725632, 3805461 ####[facility] [address] [facility] [place] [address] CRPon 07-13-2022 CRP [Mass/Vol] 8.9 mg/dL High <=1.9 [facility] Comment on above: Performed By: #### 2 574409, 9923947, 9648001 ####[facility] [address] [facility] [place] [address] Capillary Glucose POCon 06-0 Glucose [Mass/Vol] 256 mg/dL High 55-99 [facility] Comment on above: Result Comment: Ambrocio ELIAS Performed By: #### 2 86471418 ####[facility] [address] [facility] [place] [address] Glucose [Mass/Vol] 268 mg/dL High 55-99 [facility] Comment on above: Performed By: #### 2 97736240 ####[facility] [address] [facility] [place] [address] Glucose [Mass/Vol] 247 mg/dL High 55-99 [facility] Comment on above: Result Comment: Ambrocio ELIAS Performed By: #### 2 42151661 ####[facility] [address] [place] [address] Glucose [Mass/Vol] 279 mg/dL High 55-99 [facility] Comment on above: Result Comment: Ambrocio vargas RN/ Performed By: #### 2 63652233 ####[facility] [address] [place] [address] Consultation Noteon 07-14-19 Consultation Note Normal [facility] Comment on above: Result Comment: Elec tronically Signed By: Aaron FISH, Cristino\.br\Date and Time Signed: 07/13/22 14:44 EDT Consultation Note Normal [facility] Comment on above: Result Comment: Elec tronically Signed By: Alfredo Acosta M.D\.br\Date and Time Signed: 07/13/22 09:50 EDT Interdisciplinary Note - Paresh e Manageron 07-13-2022 Interdisciplinary Note - Supervisor [employer] Normal [facility] Comment on above: Result Comment: Elec tronically Signed By: Alaina Ragland RN\.br\Date and Time Signed: 07/13/22 11:59 EDT Interdisciplinary Note - Bang singon 07-13-2022 Interdisciplinary Note - Nursing Normal [facility] Lactic Acidon 07-13-2022 Lactate [Mass/Vol] 2.3 mmol/L High 0.5-2.2 [facility] Comment on above: Order Comment: Order added by EKS Rule. (FT_LACTIC_ACID_REFLEX) Adds reflex Lactic Acid 4 hours after initial if result is greater than or equal to 2.0. Performed By: #### 2 430372 ####[facility] [address] [place] [address] Lactate [Mass/Vol] 5.9 mmol/L Abnormal 0.5-2.2 [facility] Comment on above: Result Comment: Crit ical Result verified by repeat analysis\Critical Result S_LAC:5.9Called to STEVE ESTRELLA AT 3S by NEDA MACHUCA And Read Back For Confirmation at: 07/13/2022 12:52:22 Performed By: #### 2 277146, 2862823, 0222423 ####[facility] [address] [place] [address] Monitor Recordon 07-13-2022 Monitor Record [id number]#1. 00CD:127 Normal [facility] Monitor Record [id number]#1. 00CD:127 Normal [facility] Monitor Record [id number]#1. 00CD:127 Normal [facility] Progress Note - Pharmacyon 0 07-13-2022 Progress Note - Pharmacy Normal [facility] Progress Note-Nurseon 2022 Progress Note-Nurse Tx tolerated well, hypotension at beginning of Tx, no other significant issues. 0L removed Pre wt 94 Post wt 95 Normal [facility] Progress Note-Physicianon Progress Note-Physician Normal [facility] Comment on above: Result Comment: Elec tronically Signed By: Nathalie HAAS\.br\Date and Time Signed: 07/13/22 13:50 EDT\.br\Electronically Co-Signed By: Nathalei HAAS\.br\Date and Time Co-Signed: 07/13/22 13:56 EDT\.br\Electronically Co-Signed By: Fuentes Rodriguez MD\.br\Date and Time Co-Signed: 07/13/22 15:20 EDT US Extremity Non-Vascular Li mited Lefton 07-13-2022 US Extremity Non-Vascular Limited Left Normal [facility] Vanco Troughon 07-13-2022 VANCOMYCIN 50 microgram/mL Abnormal 10-20 [facility] Comment on above: Result Comment: Crit ical Result verified by repeat analysis\Critical Result S_VANC_T:50.0 Called to MARYURI MCKEON AT 3S by NEDA MACHUCA And Read Back For Confirmation at: 07/13/2022 06:49:48 Performed By: #### 1 6477915, 0806214, 5492363 ####[facility] [address] [place] [address] WBCon 07-13-2022 WBC corrected for nucl RBC Auto (Bld) [#/Vol] 23.8 E9/L High 4.0-11.0 [facility] Comment on above: Performed By: #### 2 202968, 4365704, 2984382 ####[facility] [address] [place] [address] XR Chest 2 Viewson 3 XR Chest 2 Views Normal [facility] eGFRon 07-13-2022 GFR/1.73 sq M.predicted among non-blacks MDRD (S/P/Bld) [Vol rate/Area] 6 mL/min/1.73 m2 Low >=59 [facility] Comment on above: Order Comment: Order added by Discern Expert. Result Comment: [employer] jm kidney disease could be indicated at eGFR's of less than 60 mL/min/1.73m2. Kidney failure is indicated at less than 15 mL/min/1.73m2. Performed By: #### 1 9819728, 1880727, 6065400 ####[facility] [address] [place] [address] Auto Diffon 07-12-2022 Basophils/100 WBC (Bld) 0.8 % Normal 0.0-2.0 [facility] Comment on above: Order Comment: Order Added by Discern Expert. Performed By: #### 2 825727, 8665240, 5698863, 30470009 ####[facility] [address] [place] [address] Basophils/Leukocytes Auto (Bld) [Pure # fraction] 0.1 E9/L Normal 0.0-0.2 [facility] Comment on above: Order Comment: Order Added by Discern Expert. Performed By: #### 2 173772, 0665911, 8275012, 64525641 ####[facility] [address] [place] [address] Eosinophils/100 WBC (Bld) 1.5 % Normal 0.0-8.0 [facility] Comment on above: Order Comment: Order Added by Discern Expert. Performed By: #### 2 275916, 4494909, 2547275, 31607312 ####[address] [place] [address] Eosinophils/Leukocyt es Auto (Bld) [Pure # fraction] 0.1 E9/L Normal 0.0-0.5 [facility] Comment on above: Order Comment: Order Added by Discern Expert. Performed By: #### 2 823703, 2338064, 5536396, 51629372 ####[address] [address] Lymphocytes/100 WBC (Bld) 11.0 % Low 14.0-50.0 [facility] Comment on above: Order Comment: Order Added by Discern Expert. Performed By: #### 2 582025, 8807917, 6377870, 02576822 ####[address] [address] Lymphocytes/Leukocyt es Auto (Bld) [Pure # fraction] 0.9 E9/L Low 1.0-4.0 [facility] Comment on above: Order Comment: Order Added by Discern Expert. Performed By: #### 2 161927, 6442894, 8090072, 11733724 ####[address] [address] Monocytes/100 WBC (Bld) 13.7 % Normal 4.0-14.0 [facility] Comment on above: Order Comment: Order Added by Discern Expert. Performed By: #### 2 494699, 0330132, 7924600, 39467615 ####[address] [address] Monocytes/Leukocytes Auto (Bld) [Pure # fraction] 1.1 E9/L High 0.2-1.0 [facility] Comment on above: Order Comment: Order Added by Discern Expert. Performed By: #### 2 070427, 8662695, 0217663, 56308147 ####[address] [address] Neutrophils/100 WBC (Bld) 73.0 % Normal 36.0-75.0 [facility] Comment on above: Order Comment: Order Added by Discern Expert. Performed By: #### 2 331794, 9784712, 7070585, 50855047 ####[facility] [address] [place] [address] Neutrophils/Leukocyt es Auto (Bld) [Pure # fraction] 5.9 E9/L Normal 2.0-7.5 [facility] Comment on above: Order Comment: Order Added by Discern Expert. Performed By: #### 2 848122, 5791266, 2290016, 57489144 ####[facility] [address] [place] [address] BMPon 07-12-2022 Creatinine [Mass/Vol] 7.6 mg/dL Abnormal 0.5-1.3 [facility] Comment on above: Result Comment: Crit ical Result verified by previous result\Critical Result verified by repeat analysis\Critical Result S_CREA:7.60 Called to JOHANNE BUNCH AT 3N by NOEL ORNELAS And Read Back For Confirmation at: 07/12/2022 16:57:45 Performed By: #### 2 247939, 0653548, 4671996, 59547932 ####[facility] [address] [place] [address] Urea nitrogen [Mass/Vol] 26 mg/dL High 5-21 [facility] Comment on above: Performed By: #### 2 393963, 7666916, 4617619, 02511320 ####[facility] [address] [place] [address] Urea nitrogen/Creatinine [Mass ratio] 3 No Units Low 10-20 [facility] Comment on above: Performed By: #### 2 724560, 8173360, 5629915, 92222785 ####[facility] [address] [place] [address] Anion gap [Moles/Vol] 15 mmol/L Normal 6-16 [facility] Comment on above: Performed By: #### 2 538777, 1544363, 2333094, 41003635 ####[facility] [address] [place] [address] Calcium [Mass/Vol] 9.2 mg/dL Normal 8.9-11.1 [facility] Comment on above: Performed By: #### 2 663925, 2791317, 2456206, 30324906 ####[facility] [address] [place] [address] Chloride [Moles/Vol] 98 mmol/L Low 101-111 [facility] Comment on above: Performed By: #### 2 381789, 0530122, 3695411, 24832686 ####[facility] [address] [place] [address] CO2 [Moles/Vol] 25 mmol/L Normal 21-31 [facility] Comment on above: Performed By: #### 2 604479, 8026151, 3615245, 66498106 ####[facility] [address] [place] [address] Glucose [Mass/Vol] 203 mg/dL High 55-199 [facility] Comment on above: Result Comment: If t his glucose result represents a fasting glucose, interpretation should refer to the following reference range: 55-99 mg/dL Performed By: #### 2 853642, 4084984, 8667153, 54269119 ####[facility] [address] [place] [address] Potassium [Moles/Vol] 4.2 mmol/L Normal 3.5-5.3 [facility] Comment on above: Performed By: #### 2 915777, 1657217, 0795589, 26291689 ####[facility] [address] [place] [address] Sodium [Moles/Vol] 134 mmol/L Low 135-145 [facility] Comment on above: Performed By: #### 2 381979, 0324176, 1163684, 46967883 ####[facility] [address] [place] [address] CBC w/ Auto Diffon 06-01-202 3 Erythrocyte distribution width (RBC) [Ratio] 16.8 % High 10.9-14.2 [facility] Comment on above: Performed By: #### 2 831866, 6478801, 7166706, 10126931 ####[facility] [address] [place] [address] Hematocrit (Bld) [Volume fraction] 28.7 % Low 37.7-49.0 [facility] Comment on above: Performed By: #### 2 221366, 4271575, 0984440, 84074342 ####[address] [place] [address] Hemoglobin (Bld) [Mass/Vol] 9.5 g/dL Low 13.5-17.5 [facility] Comment on above: Performed By: #### 2 651653, 4293952, 5139941, 44102477 ####[address] [address] MCH (RBC) [Entitic mass] 29.6 pg Normal 27.0-34.0 [facility] Comment on above: Performed By: #### 2 393030, 7929988, 2383912, 30060341 ####[address] [address] MCHC (RBC) [Mass/Vol] 33.1 g/dL Normal 31.4-36.0 [facility] Comment on above: Performed By: #### 2 944335, 0191254, 3998593, 06329914 ####[address] [place] [address] MCV (RBC) [Entitic vol] 89.5 fL Normal 80.0-100.0 [facility] Comment on above: Performed By: #### 2 142275, 2882529, 0006884, 90688382 ####[address] [place] [address] Platelet mean volume (Bld) [Entitic vol] 7.4 fL Normal 6.4-10.8 [facility] Comment on above: Performed By: #### 2 518816, 3430889, 7174665, 94230761 ####[facility] [address] [place] [address] Platelets (Bld) [#/Vol] 284.0 E9/L Normal 150.0-500.0 [facility] Comment on above: Performed By: #### 2 580387, 7482289, 6673766, 56744622 ####[address] [address] RBC (Bld) [#/Vol] 3.2 E12/L Low 4.3-5.9 [facility] Comment on above: Performed By: #### 2 793074, 2938637, 5416614, 80136432 ####[address] [address] WBC corrected for nucl RBC Auto (Bld) [#/Vol] 8.1 E9/L Normal 4.0-11.0 [facility] Comment on above: Performed By: #### 2 615140, 9369803, 5306815, 11342779 ####[address] [address] Capillary Glucose POCon Glucose [Mass/Vol] 287 mg/dL High 55-99 [facility] Comment on above: Result Comment: Ambrocio ELIAS Performed By: #### 2 99979441 ####[address] [address] Glucose [Mass/Vol] 191 mg/dL High [address] Comment on above: Result Comment: Ambrocio ELIAS Performed By: #### 2 26311817 ####[address] [address] Consent for Treatmenton Consent for Treatment [id number]#1.0 0CD:127 Normal [facility] Consent for Treatment [id number]#1.0 0CD:127 Normal [facility] Heart and Vascular Office/Cl inic Noteon 07-12-2022 Heart and Vascular Office/Clinic Note Normal [facility] Comment on above: Result Comment: Elec tronically Signed By: Dorian FISH, Evelyn Lopez\.br\Date and Time Signed: 07/12/22 13:58 EDT Progress Note - Pharmacyon 0 07-12-2022 Progress Note - Pharmacy Normal [facility] eGFRon 07-12-2022 GFR/1.73 sq M.predicted among non-blacks MDRD (S/P/Bld) [Vol rate/Area] 7 mL/min/1.73 m2 Low >=59 [facility] Comment on above: Order Comment: Order added by Discern Expert. Result Comment: [employer] jm kidney disease could be indicated at eGFR's of less than 60 mL/min/1.73m2. Kidney failure is indicated at less than 15 mL/min/1.73m2. Performed By: #### 2 318299, 7840094, 3351665, 25202882 ####[facility] [address] [place] [address] ED Note-Physicianon 07-12-19 ED Note-Physician Normal [facility] Comment on above: Result Comment: Elec tronically Signed By: Zack Domingo PA-C\.br\Date and Time Signed: 07/09/22 20:28 EDT\.br\Electronically Co-Signed By: Adam Weinberg M.D.\.br\Date and Time Co-Signed: 07/11/22 07:12 EDT US AV Fistula/Lisa 2022 US AV Fistula/Graft Normal [facility] US UE Venous Duplex Lefton 0 07-10-2022 US UE Venous Duplex Left Normal [facility] Consent for Treatmenton 06-12 Consent for Treatment [id number]#1.0 0CD:127 Normal [facility] Discharge Instructionson Discharge Instructions [id number]#1. 00CD:127 Normal [facility] ED Clinical Summaryon 2022 ED Clinical Summary Normal David aiken [facility] ED Patient Education Noteon 07-09-2022 ED Patient Education Note Normal [facility] ED Patient Summaryon 023 ED Patient Summary Normal [facility] Cardiovascular Reporton 06-12 Cardiovascular Report [id number]#1. 00CD:127 Normal [facility] Consent for Procedure/Surger yon 07-04-2022 Consent for Procedure/Surgery [id number]#1. 00CD:127 Normal [facility] Consultation Noteon 07-05-19 Consultation Note Normal [facility] Comment on above: Result Comment: Elec tronically Signed By: Brian SHIN, Sarah Ugalde\.br\Date and Time Signed: 07/03/22 21:20 EDT\.br\Electronically Co-Signed By: Shantanu FISH, Jatin\.br\Date and Time Co-Signed: 07/04/22 12:37 EDT Discharge Instructionson Discharge Instructions [id number]#1. 00CD:127 Normal [facility] Progress Note-Nurseon 2022 Progress Note-Nurse [id number]#1. 00CD:127 Normal [facility] Auto Diffon 07-03-2022 Basophils/100 WBC (Bld) 0.3 % Normal 0.0-2.0 [facility] Comment on above: Order Comment: Order Added by Discern Expert. Performed By: #### 1 1095538, 0895781, 2891498, 3578636 ####[facility] [address] [place] [address] Basophils/Leukocytes Auto (Bld) [Pure # fraction] 0.0 E9/L Normal 0.0-0.2 [facility] Comment on above: Order Comment: Order Added by Discern Expert. Performed By: #### 1 1969417, 7259956, 3957539, 7988707 ####[address] [place] [address] Eosinophils/100 WBC (Bld) 1.0 % Normal 0.0-8.0 [facility] Comment on above: Order Comment: Order Added by Discern Expert. Performed By: #### 1 5321396, 7589874, 3707764, 5489252 ####[address] [address] Eosinophils/Leukocyt es Auto (Bld) [Pure # fraction] 0.1 E9/L Normal 0.0-0.5 [facility] Comment on above: Order Comment: Order Added by Cayla Expert. Performed By: #### 1 7955608, 6378909, 8668920, 7212504 ####[address] [address] Lymphocytes/100 WBC (Bld) 9.1 % Low 14.0-50.0 [facility] Comment on above: Order Comment: Order Added by Cayla Expert. Performed By: #### 1 2318720, 9271929, 9683130, 5739403 ####[address] [address] Lymphocytes/Leukocyt es Auto (Bld) [Pure # fraction] 0.6 E9/L Low 1.0-4.0 [facility] Comment on above: Order Comment: Order Added by Discern Expert. Performed By: #### 1 4878105, 7237496, 7099923, 0723345 ####[address] [address] Monocytes/100 WBC (Bld) 16.7 % High 4.0-14.0 [facility] Comment on above: Order Comment: Order Added by Cayla Expert. Performed By: #### 1 8898206, 3618175, 4215514, 2022205 ####[address] [address] Monocytes/Leukocytes Auto (Bld) [Pure # fraction] 1.2 E9/L High 0.2-1.0 [facility] Comment on above: Order Comment: Order Added by Discern Expert. Performed By: #### 1 1553624, 3176097, 1826185, 2611545 ####[facility] [address] [place] [address] Neutrophils/100 WBC (Bld) 72.9 % Normal 36.0-75.0 [facility] Comment on above: Order Comment: Order Added by Discern Expert. Performed By: #### 1 3018703, 5905853, 2278550, 6476765 ####[facility] [address] [place] [address] Neutrophils/Leukocyt es Auto (Bld) [Pure # fraction] 5.2 E9/L Normal 2.0-7.5 [facility] Comment on above: Order Comment: Order Added by Discern Expert. Performed By: #### 1 5004571, 3048305, 0618352, 2830144 ####[facility] [address] [place] [address] BMPon 07-03-2022 Anion gap [Moles/Vol] 19 mmol/L High 6-16 [facility] Comment on above: Performed By: #### 1 7474711, 6613706, 0994622, 4580304 ####[facility] [address] [place] [address] Calcium [Mass/Vol] 8.3 mg/dL Low 8.9-11.1 [facility] Comment on above: Performed By: #### 1 3511094, 3190731, 3982734, 8168240 ####[facility] [address] [place] [address] Chloride [Moles/Vol] 98 mmol/L Low 101-111 [facility] Comment on above: Performed By: #### 1 7044196, 1101930, 8508212, 9951135 ####[facility] [address] [place] [address] CO2 [Moles/Vol] 23 mmol/L Normal 21-31 [facility] Comment on above: Performed By: #### 1 4006448, 0901116, 3862577, 2873144 ####[facility] [address] [place] [address] Creatinine [Mass/Vol] 17.8 mg/dL Abnormal 0.5-1.3 [facility] Comment on above: Result Comment: Crit ical Result S_CREA:17.80 Called to BRADY SILVERMAN AT [facility] by CATHY LERNER And Read Back For Confirmation at: 07/03/2022 07:23:33\Critical Result verified by previous result Performed By: #### 1 8130856, 0537287, 2655872, 2215282 ####[facility] [address] [place] [address] Glucose [Mass/Vol] 226 mg/dL High 55-199 [facility] Comment on above: Result Comment: If t his glucose result represents a fasting glucose, interpretation should refer to the following reference range: 55-99 mg/dL Performed By: #### 1 9070575, 0752582, 3712489, 4136392 ####[facility] [address] [facility] [place] [address] Potassium [Moles/Vol] 4.8 mmol/L Normal 3.5-5.3 [facility] Comment on above: Performed By: #### 1 1230508, 1442802, 9863465, 5147921 ####[facility] [address] [facility] [place] [address] Sodium [Moles/Vol] 135 mmol/L Normal 135-145 [facility] Comment on above: Performed By: #### 1 6845526, 9291427, 6961733, 4176960 ####[facility] [address] [facility] [place] [address] Urea nitrogen [Mass/Vol] 88 mg/dL Abnormal 5-21 [facility] Comment on above: Result Comment: Crit ical Result S_BUN:88 Called to BRADY SILVERMAN AT [facility] by CATHY LERNER And Read Back For Confirmation at: 07/03/2022 07:23:33\Critical Result verified by previous result Performed By: #### 1 8459439, 2369757, 6104281, 3583253 ####[address] [place] [address]57 Urea nitrogen/Creatinine [Mass ratio] 5 No Units Low 10-20 [facility] Comment on above: Performed By: #### 1 0102296, 9375153, 0204217, 3673095 ####[address] [place] [address]57 CBC w/ Auto Diffon 3 Erythrocyte distribution width (RBC) [Ratio] 17.0 % High 10.9-14.2 [facility] Comment on above: Performed By: #### 1 9971860, 3366175, 3940927, 1257097 ####[place] [address] Hematocrit (Bld) [Volume fraction] 26.8 % Low 37.7-49.0 [facility] Comment on above: Performed By: #### 1 7486512, 0414395, 9948472, 1574357 ####[place] [address] Hemoglobin (Bld) [Mass/Vol] 9.2 g/dL Low 13.5-17.5 [facility] Comment on above: Performed By: #### 1 8946498, 0570045, 7822255, 9989904 ####[address] [address] MCH (RBC) [Entitic mass] 30.4 pg Normal 27.0-34.0 [facility] Comment on above: Performed By: #### 1 8158718, 1001761, 5712424, 2599209 ####[address] [place] [address] MCHC (RBC) [Mass/Vol] 34.3 g/dL Normal 31.4-36.0 [facility] Comment on above: Performed By: #### 1 1716894, 7633958, 0130256, 9378686 ####[facility] [address] [place] [address] MCV (RBC) [Entitic vol] 88.5 fL Normal 80.0-100.0 [facility] Comment on above: Performed By: #### 1 4637219, 6381971, 9460481, 5653053 ####[address] [place] [address] Platelet mean volume (Bld) [Entitic vol] 8.4 fL Normal 6.4-10.8 [facility] Comment on above: Performed By: #### 1 4288268, 4259749, 8718672, 8639472 ####[address] [place] [address] Platelets (Bld) [#/Vol] 155.0 E9/L Normal 150.0-500.0 [facility] Comment on above: Performed By: #### 1 8606187, 1090060, 5149056, 0071002 ####[address] [address] RBC (Bld) [#/Vol] 3.0 E12/L Low 4.3-5.9 [facility] Comment on above: Performed By: #### 1 4043589, 4664857, 6771901, 6044620 ####[address] [address] WBC corrected for nucl RBC Auto (Bld) [#/Vol] 7.1 E9/L Normal 4.0-11.0 [facility] Comment on above: Result Comment: Slid e reviewed by BC. Performed By: #### 1 6437090, 0602940, 4738713, 5513810 ####[address] [address] Capillary Glucose POCon 052 Glucose [Mass/Vol] 146 mg/dL High 55-99 [facility] Comment on above: Result Comment: Ambrocio vargas RN/ Performed By: #### 2 78071011 ####[address] [address] Glucose [Mass/Vol] 158 mg/dL High 55-99 [facility] Comment on above: Result Comment: Ambrocio vargas RN/ Performed By: #### 2 73673429 ####[facility] [address] [place] [address] Cardiovascular Reporton 06-12 Cardiovascular Report [id number]#2. 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 Pt is from home with , previously rounded with Dr. Arauz and plan to DC home after dialysis. contact information provided and white board updated. CRM following. [facility] Comment on above: Result Comment: Elec tronically Signed By: Alaina Ragland RN\.br\Date and Time Signed: 07/03/22 10:14 EDT Monitor Recordon 07-03-2022 Monitor Record [id number]#1. 00CD:127 [facility] Monitor Record [id number]#1. 00CD:127 [facility] Monitor Record [id number]#1. 00CD:127 [facility] Monitor Record [id number]#1. 00CD:127 [facility] Patient Education - Texton 0 07-03-2022 Patient Education - Text [facility] Progress Note-Physicianon Progress Note-Physician [facility] Comment on above: Result Comment: Elec tronically Signed By: Pedro ARAUZ MD\.br\Date and Time Signed: 07/03/22 08:34 EDT eGFRon 07-03-2022 GFR/1.73 sq M.predicted among non-blacks MDRD (S/P/Bld) [Vol rate/Area] 3 mL/min/1.73 m2 Low >=59 [facility] Comment on above: Order Comment: Order added by Discern Expert. Result Comment: [employer] jm kidney disease could be indicated at eGFR's of less than 60 mL/min/1.73m2. Kidney failure is indicated at less than 15 mL/min/1.73m2. Performed By: #### 1 6340744, 1933941, 0137464, 1220322 ####[facility] [address] [place] [address] BMPon 07-02-2022 Creatinine [Mass/Vol] 16.8 mg/dL Abnormal 0.5-1.3 [facility] Comment on above: Result Comment: Crit ical Result S_CREA:16.80 Called to LESTER MELTON AT [facility] by CATHY LERNER And Read Back For Confirmation at: 07/02/2022 13:30:56\Critical Result verified by repeat analysis Performed By: #### 1 6668185, 5688897 ####[facility] [address] [place] [address] Urea nitrogen [Mass/Vol] 78 mg/dL High 5-21 [facility] Comment on above: Performed By: #### 1 4312271, 8578965 ####[facility] [address] [place] [address] Urea nitrogen/Creatinine [Mass ratio] 5 No Units Low 10-20 [facility] Comment on above: Performed By: #### 1 9252254, 8366863 ####[facility] [address] [place] [address] Anion gap [Moles/Vol] 22 mmol/L High 6-16 [facility] Comment on above: Performed By: #### 1 0878254, 5835967 ####[facility] [address] [place] [address] Calcium [Mass/Vol] 8.9 mg/dL Normal 8.9-11.1 [facility] Comment on above: Performed By: #### 1 5811165, 4214946 ####[facility] [address] [facility] [place] [address] Chloride [Moles/Vol] 96 mmol/L Low 101-111 [facility] Comment on above: Performed By: #### 1 4341622, 4008022 ####[facility] [address] [facility] [place] [address] CO2 [Moles/Vol] 21 mmol/L Normal 21-31 [facility] Comment on above: Performed By: #### 1 6063334, 0647773 ####[facility] [address] [facility] [place] [address] Glucose [Mass/Vol] 229 mg/dL High 55-199 [facility] Comment on above: Result Comment: If t his glucose result represents a fasting glucose, interpretation should refer to the following reference range: 55-99 mg/dL Performed By: #### 1 6443565, 4378752 ####[facility] [address] [facility] [place] [address] Potassium [Moles/Vol] 4.9 mmol/L Normal 3.5-5.3 [facility] Comment on above: Performed By: #### 1 3596233, 6495365 ####[facility] [address] [facility] [place] [address] Sodium [Moles/Vol] 134 mmol/L Low 135-145 [facility] Comment on above: Performed By: #### 1 1876567, 0884193 ####[facility] [address] [facility] [place] [address] Capillary Glucose POCon 06-12 Glucose [Mass/Vol] 253 mg/dL High 55-99 [facility] Comment on above: Performed By: #### 2 00227128 ####[facility] [address] [facility] [place] [address] Consent for Treatmenton 06-12 Consent for Treatment [id number]#1.0 0CD:127 Normal [facility] Interdisciplinary Note - Bang singon 07-02-2022 Interdisciplinary Note - Nursing Normal [facility] Monitor Recordon 07-02-2022 Monitor Record [id number]#1. 00CD:127 Normal [facility] Operative Reporton Operative Report Normal [facility] Comment on above: Result Comment: Elec tronically Signed By: Dorian FISH, Evelyn Lopez\.br\Date and Time Signed: 07/02/22 15:32 EDT eGFRon 07-02-2022 GFR/1.73 sq M.predicted among non-blacks MDRD (S/P/Bld) [Vol rate/Area] 3 mL/min/1.73 m2 Low >=59 [facility] Comment on above: Order Comment: Order added by Discern Expert. Result Comment: [employer] jm kidney disease could be indicated at eGFR's of less than 60 mL/min/1.73m2. Kidney failure is indicated at less than 15 mL/min/1.73m2. Performed By: #### 1 0665404, 9191445 ####[facility] [address] [place] [address] Discharge Instructionson Discharge Instructions [id number]#1.0 0CD:127 Normal [facility] BMPon 06-29-2022 Creatinine [Mass/Vol] 10.3 mg/dL Abnormal 0.5-1.3 [facility] Comment on above: Result Comment: Crit ical Result verified by repeat analysis\Critical Result S_CREA:10.30 Called to DOMINGO LANGE AT ER by NOEL ORNELAS And Read Back For Confirmation at: 06/29/2022 17:06:57 Performed By: #### 2 733859, 69162143 ####[facility] [address] [place] [address] Urea nitrogen [Mass/Vol] 41 mg/dL High 5- [facility] Comment on above: Performed By: #### 2 432554, 71698592 ####[facility] [address] [place] [address] Urea nitrogen/Creatinine [Mass ratio] 4 No Units Low 10-20 [facility] Comment on above: Performed By: #### 2 087894, 14677558 ####[facility] [address] [place] [address] Anion gap [Moles/Vol] 16 mmol/L Normal 6-16 [facility] Comment on above: Performed By: #### 2 862079, 84681320 ####[facility] [address] [place] [address] Calcium [Mass/Vol] 9.6 mg/dL Normal 8.9-11.1 [facility] Comment on above: Performed By: #### 2 706582, 07948757 ####[facility] [address] [place] [address] Chloride [Moles/Vol] 98 mmol/L Low 101-111 [facility] Comment on above: Performed By: #### 2 097133, 53543061 ####[facility] [address] [place] [address] CO2 [Moles/Vol] 25 mmol/L Normal 21-31 [facility] Comment on above: Performed By: #### 2 401054, 16606278 ####[facility] [address] [place] [address] Glucose [Mass/Vol] 159 mg/dL Normal 55-199 [facility] Comment on above: Result Comment: If t his glucose result represents a fasting glucose, interpretation should refer to the following reference range: 55-99 mg/dL Performed By: #### 2 979345, 29187528 ####[facility] [address] [place] [address] Potassium [Moles/Vol] 4.3 mmol/L Normal 3.5-5.3 [facility] Comment on above: Performed By: #### 2 305495, 11807019 ####[address] [place] [address] Sodium [Moles/Vol] 135 mmol/L Normal 135-145 [facility] Comment on above: Performed By: #### 2 779666, 94282579 ####[facility] [address] [place] [address] Consent for Treatmenton 06-11 Consent for Treatment [id number] 0CD:127 Normal [facility] ED Clinical Summaryon 2022 ED Clinical Summary Normal [facility] ED Note-Physicianon 06-30-19 ED Note-Physician Normal [facility] Comment on above: Result Comment: Elec tronically Signed By: Reji Azar DO.br\Date and Time Signed: 06/29/22 19:10 EDT ED Patient Education Noteon 06-29-2022 ED Patient Education Note Normal [facility] ED Patient Summaryon 023 ED Patient Summary Normal [facility] US AV Fistula/[place] 2022 US AV Fistula/Graft Normal [facility] eGFRon 06-29-2022 GFR/1.73 sq M.predicted among non-blacks MDRD (S/P/Bld) [Vol rate/Area] 5 mL/min/1.73 m2 Low >=59 [facility] Comment on above: Order Comment: Order added by Discern Expert. Result Comment: [employer] jm kidney disease could be indicated at eGFR's of less than 60 mL/min/1.73m2. Kidney failure is indicated at less than 15 mL/min/1.73m2. Performed By: #### 2 171431, 86087032 ####[facility] [address] [place] [address] Progress Noteson 05-17-2022 Neon Sign Mechanic Authentication Interface Message Text EMERGENCY TRIAGE, TREAT AND TRANSPORT (ET3) DOCUMENTATION OF TELEHEALTH VISIT Date / Time: 05/16/20221754 Name: BrieDedrick tamayo : 1955 SSN: (Not on file) EMS Agency: [facility] [] Verbal consent obtained [x] Implied [...] Completed by: Guicho Angelo DO Normal [facility] SYMPTOMATIC COVID-19 ANTIGEN on 05-09-2022 EUA Statement SEE BELOW Normal [facility] Comment on above: Result Comment: [...] sooner. Performed By: #### C VDAGS #### [facility] [address] [place] [address] Dr. Radha Edward SARS-CoV-2 (COVID-19) RNA IRENE+probe Ql (Unsp spec) Positive Abnormal NEGATIVE [facility] Comment on above: Performed By: #### C VDAGS #### [facility] [address] [place] [address] Dr. Radha Edward Coding Summary.on 03-21-2022 Coding Summary. Normal [facility] Coding Summary. Normal [facility] Operative Reporton Operative Report Normal [facility] Comment on above: Result Comment: Elec tronically Signed By: Dorian FISH, Evelyn Lopez\.br\Date and Time Signed: 03/19/22 11:58 EST Coding Summary.on 03-16-2022 Coding Summary. Normal [facility] Consent for Procedure/Surger yon 03-16-2022 Consent for Procedure/Surgery [id number]#1. 00CD:127 Normal [facility] Discharge Instructionson Discharge Instructions [id number]#1. 00CD:127 Normal [facility] Auto Diffon 03-15-2022 Basophils/100 WBC (Bld) 1.2 % Normal 0.0-2.0 [facility] Comment on above: Order Comment: Order Added by Discern Expert. Performed By: #### 2 099621, 0375575, 9809566, 27327261 ####[address] [address] Basophils/Leukocytes Auto (Bld) [Pure # fraction] 0.1 E9/L Normal 0.0-0.2 [facility] Comment on above: Order Comment: Order Added by Discern Expert. Performed By: #### 2 853292, 0679618, 0800214, 76137651 ####[address] [address] Eosinophils/100 WBC (Bld) 2.9 % Normal 0.0-8.0 [facility] Comment on above: Order Comment: Order Added by Discern Expert. Performed By: #### 2 019478, 9793910, 4277823, 33752478 ####[address] [address] Eosinophils/Leukocyt es Auto (Bld) [Pure # fraction] 0.2 E9/L Normal 0.0-0.5 [facility] Comment on above: Order Comment: Order Added by Discern Expert. Performed By: #### 2 515942, 8915163, 0036531, 84165724 ####[address] [address] Lymphocytes/100 WBC (Bld) 16.1 % Normal 14.0-50.0 [facility] Comment on above: Order Comment: Order Added by Discern Expert. Performed By: #### 2 945717, 5822428, 1661105, 71834469 ####[address] [address] Lymphocytes/Leukocyt es Auto (Bld) [Pure # fraction] 0.9 E9/L Low 1.0-4.0 [facility] Comment on above: Order Comment: Order Added by Discern Expert. Performed By: #### 2 879483, 9462385, 9967987, 83025056 ####[address] [place] [address] Monocytes/100 WBC (Bld) 15.1 % High 4.0-14.0 [facility] Comment on above: Order Comment: Order Added by Discern Expert. Performed By: #### 2 280778, 3835973, 7256802, 66768497 ####[address] [place] [address] Monocytes/Leukocytes Auto (Bld) [Pure # fraction] 0.8 E9/L Normal 0.2-1.0 [facility] Comment on above: Order Comment: Order Added by Cayla Expert. Performed By: #### 2 288435, 1191681, 5921400, 85314477 ####[address] [address] Neutrophils/100 WBC (Bld) 64.7 % Normal 36.0-75.0 [facility] Comment on above: Order Comment: Order Added by Discern Expert. Performed By: #### 2 897633, 9721486, 7570803, 54472456 ####[address] [address] Neutrophils/Leukocyt es Auto (Bld) [Pure # fraction] 3.5 E9/L Normal 2.0-7.5 [facility] Comment on above: Order Comment: Order Added by Discern Expert. Performed By: #### 2 490395, 6425010, 4970690, 73876269 ####[address] [address] BMPon 03-15-2022 Anion gap [Moles/Vol] 16 mmol/L Normal 6-16 [facility] Comment on above: Performed By: #### 2 730551, 1066858, 5671119, 84034483 ####[address] [address] Calcium [Mass/Vol] 9.3 mg/dL Normal 8.9-11.1 [facility] Comment on above: Performed By: #### 2 288035, 9205994, 4125545, 30835992 ####[facility] [address] [address] Chloride [Moles/Vol] 93 mmol/L Low 101-111 [facility] Comment on above: Performed By: #### 2 979659, 8303074, 9019098, [id number] ####[facility] [address] [place] [address] CO2 [Moles/Vol] 28 mmol/L Normal 21-31 [facility] Comment on above: Performed By: #### 2 819352, 8452488, 3823179, [id number] ####[facility] [address] [facility] [place] [address] Creatinine [Mass/Vol] 7.2 mg/dL High 0.5-1.3 [facility] Comment on above: Performed By: #### 2 100723, 0444857, 6865741, [id number] ####[facility] [address] [place] [address] Glucose [Mass/Vol] 198 mg/dL Normal 55-199 [facility] Comment on above: Result Comment: If t his glucose result represents a fasting glucose, interpretation should refer to the following reference range: 55-99 mg/dL Performed By: #### 2 619061, 4763826, 7844431, [id number] ####[facility] [address] [facility] [place] [address] Potassium [Moles/Vol] 3.6 mmol/L Normal 3.5-5.3 [facility] Comment on above: Performed By: #### 2 494213, 5512465, 6495663, 36650726 ####[facility] [address] [place] [address] Sodium [Moles/Vol] 133 mmol/L Low 135-145 [facility] Comment on above: Performed By: #### 2 769529, 9886456, 2984057, 54107936 ####[facility] [address] [place] [address] Urea nitrogen [Mass/Vol] 17 mg/dL Normal 5-21 [facility] Comment on above: Performed By: #### 2 638521, 0373560, 3207107, 29156373 ####[facility] [address] [place] [address] Urea nitrogen/Creatinine [Mass ratio] 2 No Units Low 10-20 [facility] Comment on above: Performed By: #### 2 323122, 7752617, 8376421, [id number] ####[address] [address] CBC w/ Auto Diffon 3 Erythrocyte distribution width (RBC) [Ratio] 15.4 % High 10.9-14.2 [facility] Comment on above: Performed By: #### 2 359693, 2347836, 7572787, 51089334 ####[address] [address] Hematocrit (Bld) [Volume fraction] 32.3 % Low 37.7-49.0 [facility] Comment on above: Performed By: #### 2 086936, 2522486, 3453342, 13220504 ####[address] [address] Hemoglobin (Bld) [Mass/Vol] 10.9 g/dL Low 13.5-17.5 [facility] Comment on above: Performed By: #### 2 708185, 5929109, 4990238, 93126293 ####[address] [address] MCH (RBC) [Entitic mass] 30.5 pg Normal 27.0-34.0 [facility] Comment on above: Performed By: #### 2 788559, 3625646, 5466466, 49761321 ####[address] [place] [address] MCHC (RBC) [Mass/Vol] 33.9 g/dL Normal 31.4-36.0 [facility] Comment on above: Performed By: #### 2 700199, 6961564, 3393902, 04330224 ####[address] [address] MCV (RBC) [Entitic vol] 90.0 fL Normal 80.0-100.0 [facility] Comment on above: Performed By: #### 2 728578, 9535474, 8940224, 65756650 ####[address] [address] Platelet mean volume (Bld) [Entitic vol] 8.5 fL Normal 6.4-10.8 [facility] Comment on above: Performed By: #### 2 366002, 0963943, 8137260, 04516448 ####[address] [address] Platelets (Bld) [#/Vol] 210.0 E9/L Normal 150.0-500.0 [facility] Comment on above: Performed By: #### 2 651814, 2073478, 3929016, 72212226 ####[address] [address] RBC (Bld) [#/Vol] 3.6 E12/L Low 4.3-5.9 [facility] Comment on above: Performed By: #### 2 995035, 3036103, 8577871, 29082004 ####[address] [address] WBC corrected for nucl RBC Auto (Bld) [#/Vol] 5.4 E9/L Normal 4.0-11.0 [facility] Comment on above: Result Comment: Slid e reviewed by cmk. Performed By: #### 2 207351, 8866581, 5375174, 67150601 ####[address] [place] [address] CHEMISTRYOrdered By: SYSTEM SYSTEM on 03-15-2022 Anion gap [Moles/Vol] 16 mmol/L Normal 6 - 16 mEq/L FT Remisol Calcium [Mass/Vol] 9.3 mg/dL Normal 8.9 - 11. 1 mg/dL [facility] Chloride [Moles/Vol] 93 mmol/L Low 101 [...] 8 mL/min/1.73 m2 Low >=59mL/min/1 .73 m2 [facility] Chem S Glucose [Mass/Vol] 198 mg/dL Normal 55 - 199 mg/dL [facility] Rem[facility] Potassium [Moles/Vol] 3.6 mmol/L Normal 3.5 - 5.3 mmol/L [facility] Remisol Sodium [Moles/Vol] 133 mmol/L Low 135 - 145 mmol/L [facility] Remisol Urea nitrogen [Mass/Vol] 17 mg/dL Normal 5 - 21 mg/dL FT Remisol Urea nitrogen/Creatinine [Mass ratio] 2 mg/mg Low 10 - 20 [facility] Remisol Cardiovascular Reporton Cardiovascular Report [id number]. 00CD:127 Normal [facility] Consent for Treatmenton Consent for Treatment [id number] 0CD:127 Normal [facility] Consent for Treatment [id number] 0CD:127 Normal [facility] Consent for Treatment [id number] 0CD:127 Normal [facility] HEMATOLOGYOrdered By: SYSTEM SYSTEM on [...] 03-15-2022 Heart and Vascular Office/Clinic Note Normal [facility] Comment on above: Result Comment: Elec tronically Signed By: Dorian FISH, Evelyn Lopez\.br\Date and Time Signed: 03/15/22 11:33 EST Inpatient Clinical Summaryon 03-15-2022 Inpatient Clinical Summary Normal [facility] Inpatient Patient Summaryon 03-15-2022 Inpatient Patient Summary Normal [facility] Patient Education - Texton 0 03-15-2022 Patient Education - Text Normal [facility] Progress Note-Physicianon Progress Note-Physician Normal [facility] Comment on above: Result Comment: Elec tronically Signed By: Evelyn Alarcon MD\.br\Date and Time Signed: 03/15/22 16:00 EST eGFRon 03-15-2022 GFR/1.73 sq M.predicted among blacks MDRD (S/P/Bld) [Vol rate/Area] 9 mL/min/1.73 m2 Low >=59 [facility] Comment on above: Order Comment: Order added by Discern Expert. Result Comment: eGFR is race adjusted. AA=. Performed By: #### 2 796049, 0249893, 9069505, [id number] ####[facility] [address] [place] [address] GFR/1.73 sq M.predicted among non-blacks MDRD (S/P/Bld) [Vol rate/Area] 8 mL/min/1.73 m2 Low >=59 [facility] Comment on above: Order Comment: Order added by Discern Expert. Result Comment: Window [employer] jm kidney disease could be indicated at eGFR's of less than 60 mL/min/1.73m2. Kidney failure is indicated at less than 15 mL/min/1.73m2. Performed By: #### 2 816729, 0553387, 6055748, [id number] ####[facility] [address] [place] [address] XR FOOT VENITA MIN 3 VIEWSon XR [...] by: NATHEN LUCIA Date: 2022-02-15 11:42 Normal [facility] CULTURE WOUNDon 01-15-2022 CULTURE WOUND Culture Observations [...] Trimethoprim/Sulfameth oxazole <=20 S F Normal [facility] Comment on above: Performed By: #### W OUNDCX #### [facility] [address] [place] [address] Dr. 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 Normal [facility] Coding Summary.on 11-06-2021 Coding Summary. Normal [facility] Cardiovascular Reporton 10-13 Cardiovascular Report [id number]. 00CD:127 [facility] Consent for Procedure/Surger yon 11-03-2021 Consent for Procedure/Surgery [id number]#1.0 0CD:127 [facility] Consent for Treatmenton 10-13 Consent for Treatment [id number] 0CD:127 [facility] Inpatient Clinical Summaryon 11-02-2021 Inpatient Clinical Summary [facility] Inpatient Patient Summaryon 11-02-2021 Inpatient Patient Summary [facility] Operative Reporton Operative Report [facility] Comment on above: Result Comment: Elec tronically Signed By: Evelyn Alarcon MD\.br\Date and Time Signed: 11/02/21 16:32 EDT Patient Education - Texton 0 11-02-2021 Patient Education - Text [facility] Progress Note-Physicianon Progress Note-Physician [facility] Comment on above: Result Comment: Elec tronically Signed By: Evelyn Alarcon MD\.br\Date and Time Signed: 11/02/21 15:53 EDT Consent for Treatmenton 10-12 Consent for Treatment [id number]#1.0 0CD:127 Normal [facility] Heart and Vascular Office/Cl inic Noteon 10-26-2021 Heart and Vascular Office/Clinic Note Normal [facility] Comment on above: Result Comment: Elec tronically Signed By: Dorian FISH, Evelyn Lopez\.br\Date and Time Signed: 10/26/21 15:13 EDT CBC AUTO DIFFon 08-28-2021 BASO # 0.0 103/ul Normal 0.0-0.1 [facility] Comment on above: Performed By: #### C BC #### [facility] [address] [place] [address] Dr. Radha Edward Basophils/100 WBC (Bld) 0.6 % Normal 0.2-2.0 [facility] Comment on above: Performed By: #### C BC #### [facility] [address] [place] [address] Dr. Radha Edward EO # 0.1 103/ul Normal 0.0-0.7 [facility] Comment on above: Performed By: #### C BC #### [facility] [address] [place] [address] Dr. Radha Edward Eosinophils/100 WBC (Bld) 1.7 % Normal 0.9-7.0 [facility] Comment on above: Performed By: #### C BC #### [facility] [address] [place] [address] Dr. Radha Edward Erythrocyte distribution width (RBC) [Ratio] 14.5 % Normal 11.0-15.0 [facility] Comment on above: Performed By: #### C BC #### [facility] [address] [place] [address] Dr. Radha Edward Hematocrit (Bld) [Volume fraction] 34.0 % Critically low 42.0-54.0 [facility] Comment on above: Performed By: #### C BC #### [facility] [address] [place] [address] Dr. Radha Edward Hemoglobin (Bld) [Mass/Vol] 11.1 g/dL Critically low 14.0-18.0 [facility] Comment on above: Performed By: #### C BC #### [facility] [address] [place] [address] Dr. Radha Edward IG # 0.02 10e3/ul Normal 0.00-0.03 [facility] Comment on above: Performed By: #### C BC #### [facility] [address] [place] [address] Dr. Radha Edward IG % 0.4 % Normal 0.0-0.5 [facility] Comment on above: Performed By: #### C BC #### [facility] [address] [place] [address] Dr. Radha Edward LYMPH # 1.0 103/ul Critically low 1.2-3.8 [facility] Comment on above: Performed By: #### C BC #### [facility] [address] [place] [address] Dr. Radha Edward Lymphocytes/100 WBC (Bld) 18.6 % Critically low 20.5-60.0 [facility] Comment on above: Performed By: #### C BC #### [facility] [address] [place] [address] Dr. Radha Edward MANUAL DIFF REQ NO Normal [facility] Comment on above: Performed By: #### C BC #### [facility] [address] [place] [address] Dr. Radha Edward MCH (RBC) [Entitic mass] 30.5 pg Normal 25.9-34.0 [facility] Comment on above: Performed By: #### C BC #### [facility] [address] [place] [address] Dr. Radha Edward MCHC (RBC) [Mass/Vol] 32.6 g/dL Normal 29.9-35.2 [facility] Comment on above: Performed By: #### C BC #### [facility] [address] [place] [address] Dr. Radha Edward MCV (RBC) [Entitic vol] 93.4 fL Normal 80.0-94.0 [facility] Comment on above: Performed By: #### C BC #### [facility] [address] [address] [address] Radha Edward MONO # 0.8 103/ul Normal 0.3-0.8 [facility] Comment on above: Performed By: #### C BC #### [facility] [address] [address] [address] Radha Edward Monocytes/100 WBC (Bld) 15.1 % Critically high 1.7-12.0 [facility] Comment on above: Performed By: #### C BC #### [facility] [address] [place] [address] Dr. Radha Edward NEUT # 3.5 103/ul Normal 1.4-6.5 [facility] Comment on above: Performed By: #### C BC #### [facility] [address] [place] [address] Dr. Radha Ewdard Neutrophils/100 WBC (Bld) 63.6 % Normal 43.0-75.0 [facility] Comment on above: Performed By: #### C BC #### [facility] [address] [place] [address] Dr. Radha Edward Platelet mean volume (Bld) [Entitic vol] 9.8 fL Normal 9.5-13.5 [facility] Comment on above: Performed By: #### C BC #### [facility] [address] [place] [address] Dr. Radha Edward PLT 156 103/ul Normal 150-450 [facility] Comment on above: Performed By: #### C BC #### [facility] [address] [place] [address] Dr. Radha Edward RBC 3.64 106/ul Critically low 4.70-6.10 [facility] Comment on above: Performed By: #### C BC #### [facility] [address] [place] [address] Dr. Radha Edward WBC 5.4 103/ul Normal 4.0-11.0 [facility] Comment on above: Performed By: #### C BC #### [facility] [address] [place] [address] Dr. Radha Edward PROF 14(COMP METB)on 022 Albumin [Mass/Vol] 3.6 g/dL Normal 3.4-5.0 [facility] Comment on above: Performed By: #### C MP, TSH, HSTROPN #### [facility] [address] [address] [address] Radha Edward Albumin/Globulin [Mass ratio] 0.9 {ratio} Normal [facility] Comment on above: Performed By: #### C MP, TSH, HSTROPN #### [facility] [address] [address] [address] Radha Edward ALP [Catalytic activity/Vol] 135 U/L Critically high 46-116 [facility] Comment on above: Performed By: #### C MP, TSH, HSTROPN #### [facility] [address] [place] [address] Dr. Radha Edward ALT [Catalytic activity/Vol] 21 U/L Normal 16-63 [facility] Comment on above: Performed By: #### C MP, TSH, HSTROPN #### [facility] [address] [address] [address] Radha Edward Anion gap [Moles/Vol] 13.6 mmol/L Normal [facility] Comment on above: Performed By: #### C MP, TSH, HSTROPN #### [facility] [address] [address] [address] Radha Edward AST [Catalytic activity/Vol] 14 U/L Critically low 15-37 [facility] Comment on above: Performed By: #### C MP, TSH, HSTROPN #### [facility] [address] [address] [address] Radha Edward Bilirubin [Mass/Vol] 0.6 mg/dL Normal 0.2-1.0 [facility] Comment on above: Performed By: #### C MP, TSH, HSTROPN #### [facility] [address] [address] [address] Radha Edward Calcium [Mass/Vol] 9.1 mg/dL Normal 8.5-10.1 [facility] Comment on above: Performed By: #### C MP, TSH, HSTROPN #### [facility] [address] [place] [address] Dr. Radha Edward Chloride [Moles/Vol] 95 mmol/L Critically low 98-107 [facility] Comment on above: Performed By: #### C MP, TSH, HSTROPN #### [facility] [address] [place] [address] Dr. Radha Edward CO2 [Moles/Vol] 29.8 mmol/L Normal 21.0-32.0 [facility] Comment on above: Performed By: #### C MP, TSH, HSTROPN #### [facility] [address] [place] [address] Dr. Radha Edward Creatinine [Mass/Vol] 5.55 mg/dL Critically high 0.70-1.30 [facility] Comment on above: Performed By: #### C MP, TSH, HSTROPN #### [facility] [address] [place] [address] Dr. Radha Edward EGFR-AF [place] 13 mL/min/1.73m2 Critically low >=60 [facility] Comment on above: Performed By: #### C MP, TSH, HSTROPN #### [facility] [address] [place] [address] Dr. Radha Edward EGFR-NON AF [place] 10 mL/min/1.73m2 Critically low >=60 [facility] Comment on above: Performed By: #### C MP, TSH, HSTROPN #### [facility] [address] [place] [address] Dr. Radha Edward Globulin (S) [Mass/Vol] 3.9 g/dL Normal [facility] Comment on above: Performed By: #### C MP, TSH, HSTROPN #### [facility] [address] [place] [address] Dr. Radha Edward Glucose [Mass/Vol] 164 mg/dL Critically high 74-106 [facility] Comment on above: Performed By: #### C MP, TSH, HSTROPN #### [facility] [address] [place] [address] Dr. Radha Edward Potassium [Moles/Vol] 3.4 mmol/L Critically low 3.5-5.1 [facility] Comment on above: Performed By: #### C MP, TSH, HSTROPN #### [facility] [address] [address] [address] Radha Edward Protein [Mass/Vol] 7.5 g/dL Normal 6.4-8.2 [facility] Comment on above: Performed By: #### C MP, TSH, HSTROPN #### [facility] [address] [place] [address] Dr. Radha Edward Sodium [Moles/Vol] 135 mmol/L Critically low 136-145 [facility] Comment on above: Performed By: #### C MP, TSH, HSTROPN #### [facility] [address] [place] [address] Dr. Radha Edward Urea nitrogen [Mass/Vol] 13.0 mg/dL Normal 7.0-18.0 [facility] Comment on above: Performed By: #### C MP, TSH, HSTROPN #### [facility] [address] [place] [address] Dr. Radha Edward Urea nitrogen/Creatinine [Mass ratio] 2.3 mg/mg Normal [facility] Comment on above: Performed By: #### C MP, TSH, HSTROPN #### [facility] [address] [place] [address] Dr. Radha Edward TROPONIN, HIGH SENSITIVITYon 08-28-2021 HSTROP 11.8 pg/mL Normal 4.0-76.1 [facility] Comment on above: Result Comment: CUT- OFF POINTS HAVE BEEN ESTABLISHED BASED ON THE FOURTH UNIVERSAL DEFINITIONS OF MYOCARDIAL INFARCTION. THE UPPER REFERENCE LIMIT (URL) OF TROPONIN, DEFINED THE 99TH PERCENTILE OF cTnI DISTRIBUTION IN A REFERENCE POPULATION, HAS BEEN CONFIRMED THE DECISION THRESHOLD FOR NC DIAGNOSIS. Performed By: #### C MP, TSH, HSTROPN #### [facility] [address] [address] [address] Radha Edward TSHon 08-28-2021 TSH 0.749 uIU/mL Normal 0.358-3.740 [facility] Comment on above: Performed By: #### C MP, TSH, HSTROPN #### [facility] [address] [address] [address] Radha Edward XR CHEST 1 Von 08-28-2021 XR CHEST 1 V CHEST X-RAY, 1 VIEW HISTORY: Bradycardia. Chest pain. COMPARISON: 09/01/2019. FINDINGS: The cardiac silhouette is enlarged. Left hemidiaphragm is elevated. The lungs are grossly clear. There are no pleural effusions. There is no pneumothorax. IMPRESSION: No evidence of acute cardiopulmonary disease. Electronically authenticated by: CHRISTIANNE MELVIN Date: 2021-08-28 18:59 Normal [facility] Office Visit (Cardiology)on 07-13-2021 Follow-up visit [...] COVID illness in 2019. He underwent anterior NC with PCI chronic total occlusion of the proximal through mid LAD x2 drug-eluting stents in March 2018; follow-up echocardiogram revealed low normal left ventricular function with ejection fraction of 50% in September 2018. In March 2020 he underwent COVID infection with prolonged intubation and hospitalization in [place] with multiorgan failure details of which have [...] Heparin (Porcine) in NaCl 1000-0.9 UT/500ML-% Intravenous Lihivxsf6562 unitts every dialysis loading dose hydrALAZINE HCl [...] negative for complaint. Vitals Vital Signs Recorded: [id number] 11:47AM Heart Rate66, R Radial Rbzqueqj188, RUE, Sitting Zcimmtvqh61, RUE, Sitting Height5 ft 10 in Xgpvks960 lb BMI Gfnhpdwbar48.14 kg/m2 BSA Calculated2.19 Tobacco Useb) No PHQ-2 [...] Jul 13 2021 12:27PM EST (Author) Normal [facility] Tobacco Screening.on 022 Adult depression screening assessment No [facility] [address] 250 DO Work Phone: Fall risk assessment a) No falls within the last year [facility] [address] DO Work Phone: Tobacco use status CPHS b) No [facility] [address] DO Work Phone: Echocardiogramon 10-20-[address], [address] [place] [address] TRANSTHORACIC ECHOCARDIOGRAM REPORT Patient Name: CORBIN Bowers Physician: [id number] Alfredo Saravia DO Study Date: 10/20/2020 Referring [id number] CORBIN YING Physician: MRN/PID: [id number] PCP: Violeta Alejo Accession/Order#: [id number] [facility] Location: [place] Date of : 1955 Fellow: Gender: M Nurse: Admit Date: Skin Tanner: Deena Adams RDCS, RVT Height: 177.80 cm CC Report to: Marina Agudelo Weight: 103.42 kg Study Type: Echocardiogram BSA: 2.21 m2 Diagnosis/ICD: I25.10-Atherosclerotic heart disease of [place] coronary artery without angina pectoris; I25.5-Ischemic cardiomyopathy Indication: Diabetes, HTN, CKD-End Stage-On Hemodialysis, History of DVT, Obesity, COVID Procedure/CPT: Echo Complete w Full [id number] Study Detail: The following Echo studies were [...] 0.9 m/s (0.6-0.9m/s) PV Max P.4 mmHg [id number] Alfredo Saravia Electronically signed on 10/20/2020 at 4:08:28 PM Final Normal [facility] PROGRESSon 08-27-2019 PROGRESS HNO ID: [id number] Author: Diane Cahcon) Yann Service: ? Author Type: Physician Professional Services Specialist Type: Progress Notes Filed: 08/28/2019 10:29 AM Note Text: [facility] NOTE NAME: CHRISTY MURPHY NO.: [id number] DATE OF SERVICE: 08/27/2019 [facility] DATE OF : 1955 CHIEF COMPLAINT: Followup for discharge. SUBJECTIVE FINDINGS: The patient was seen in his room at [facility] lying in bed. I remained greater [...] discharge process on this patient. DICTATED BY: iDane Lerner PA-C PG/Acjanis JOB# [id number] cc:[facility] Normal [facility] PROGRESSon 08-07-2019 PROGRESS HNO ID: [id number] Author: Diane Lerner (Pa) Service: ? Author Type: Physician Professional Services Specialist Type: Progress Notes Filed: 08/11/2019 6:39 AM Note Text: [facility] NOTE NAME: CHRISTY MURPHY NO.: [id number] DATE OF SERVICE: 08/07/2019 [facility] [place] DATE OF : 1955 SKILLED NURSING CHART VISIT NOTE CHIEF COMPLAINT: Followup for end-stage renal disease, weakness, and other medical issues. SUBJECTIVE FINDINGS: The patient was seen in his room at [facility] lying in bed. I remained greater [...] any bowel issues. MEDICATIONS: Reviewed in the senior living record. CODE STATUS: Full code. PHYSICAL EXAMINATION: [...] DICTATED BY: Diane Lerner PA-C PG/Meagan JOB# [id number] cc:Toña [facility] PROGRESSon 07-29-2019 PROGRESS HNO ID: [id number] Author: Diane Lerner (Pa) Service: ? Author Type: Physician Professional Services Specialist Type: Progress Notes Filed: 07/30/2019 12:39 PM Note Text: [facility] NOTE NAME: CHRISTY MURPHY NO.: [id number] DATE OF SERVICE: 07/29/2019 Toña Barker DATE OF : 1955 CHIEF COMPLAINT: Follow up for end-stage renal disease, weakness, and other medical issues. SUBJECTIVE FINDINGS: The patient was seen in his room at [facility] sitting up in his wheelchair. I [...] SYSTEMS: See above. MEDICATIONS: Reviewed in the senior living record. CODE STATUS: Full code. PHYSICAL EXAMINATION: [...] DICTATED BY: Diane Lerner PA-C PG/Meagan JOB# [id number] cc:[facility] [place] [facility] PROGRESSon 07-27-2019 PROGRESS HNO ID: [id number] Author: Saad Ahumada Service: ? Author Type: Physician Type: Progress Notes Filed: 07/29/2019 5:29 PM Note Text: [facility] NOTE NAME: CHRISTY MURPHY NO.: [id number] DATE OF SERVICE: 07/27/2019 [facility] [place] DATE OF : 1955 NEW PATIENT HISTORY [...] family. DICTATED BY: MD FLAKITO White/Meagan JOB# [id number] cc:Toña [facility] PROGRESSon 07-16-2019 PROGRESS HNO ID: [id number] Author: Diane Chacon) Yann Service: ? Author Type: Physician Professional Services Specialist Type: Progress Notes Filed: 07/17/2019 11:59 AM Note Text: [facility] NOTE NAME: CHRISTY MURPHY NO.: [id number] DATE OF SERVICE: 07/16/2019 [facility] [place] DATE OF : 1955 SKILLED NURSING CHART VISIT NOTE CHIEF COMPLAINT: Followup for potential discharge. SUBJECTIVE FINDINGS: The patient was seen in his room at [facility] sitting up in his wheelchair. I [...] Have asked our staff to contact his rolling attendant's office to clarify his aspirin dose. 3. [...] DICTATED BY: Diane Lerner PA-C PG/Meagan JOB# [id number] cc:[facility] [place] [facility] PROGRESSon 07-13-2019 PROGRESS HNO ID: [id number] Author: Diane Lerner (Pa) Service: ? Author Type: Physician Professional Services Specialist Type: Progress Notes Filed: 07/14/2019 2:18 PM Note Text: [facility] NOTE NAME: CHRISTY MURPHY NO.: [id number] DATE OF SERVICE: 07/13/2019 [facility] [place] DATE OF : 1955 SKILLED NURSING CHART VISIT NOTE CHIEF COMPLAINT: Skilled followup visit for end-stage renal disease, coronary artery disease, and other medical issues. SUBJECTIVE FINDINGS: The patient was seen in his room at [facility] for a skilled followup visit. I [...] SYSTEMS: See above. MEDICATIONS: Reviewed in the senior living record. CODE STATUS: Full code. PHYSICAL EXAMINATION: [...] We will ask staff to contact his rolling attendant's office to clarify the aspirin dose. 3. Dysphagia. This is resolved. We will await G-tube removal. 4. Depression. Overall, seems a bit more upbeat and positive. We will continue to monitor. 5. Type 2 diabetes mellitus. Blood sugar is well controlled on Levemir. 6. Hypertension. Blood pressure stable. 7. Weakness. Continue ongoing intense physical and occupational therapy. DICTATED BY: Diane Lerner PA-C PG/Acjanis JOB# [id number] cc:[facility] [place] [facility] PROGRESSon 07-09-2019 PROGRESS HNO ID: [id number] Author: Diane Lerner (Pa) Service: ? Author Type: Physician Professional Services Specialist Type: Progress Notes Filed: 07/13/2019 10:19 AM Note Text: [facility] NOTE NAME: CHRISTY MURPHY NO.: [id number] DATE OF SERVICE: 07/09/2019 [facility] [place] DATE OF : 1955 CHIEF COMPLAINT: Skilled followup visit for coronary artery disease, renal disease, and other medical issues. SUBJECTIVE FINDINGS: The patient was seen in his room at [facility] for skilled followup visit. I remained greater than 6 feet away from him for the evaluation due to the COVID-19 pandemic. The patient had been refusing heparin as he related that this was uncomfortable and that he was bleeding after administration. He is on longstanding Effient as ordered by Cardiology and has a history of stents. He follows with Dr. Ying in [place]. In addition, his current aspirin dose is [...] Please see above. MEDICATIONS: Reviewed in the senior living record. CODE STATUS: Full code. PHYSICAL EXAMINATION: [...] DICTATED BY: Diane Lerner PA-C PG/Meagan JOB# [id number] cc:Toña Barker [facility] 07-01-2019 PROGRESS HNO ID: [id number] Author: Diane Chacon) Yann Service: ? Author Type: Physician Professional Services Specialist Type: Progress Notes Filed: 07/03/2019 7:47 AM Note Text: [facility] NOTE NAME: CHRISTY MURPHY NO.: [id number] DATE OF SERVICE: 07/01/2019 [facility] [place] DATE OF : 1955 SKILLED NURSING CHART VISIT NOTE CHIEF COMPLAINT: Venous stasis of the legs, weakness, and other medical issues. SUBJECTIVE FINDINGS: The patient was seen in his room at [facility] for skilled followup visit. I remained [...] SYSTEMS: See above. MEDICATIONS: Reviewed in the senior living record. CODE STATUS: Full code. PHYSICAL EXAMINATION: [...] DICTATED BY: Diane Lerner PA-C PG/Meagan JOB# [id number] cc:[facility] [place] [facility] PROGRESSon 06-26-2019 PROGRESS HNO ID: [id number] Author: Diane Lerner (Pa) Service: ? Author Type: Physician Professional Services Specialist Type: Progress Notes Filed: 06/29/2019 12:17 PM Note Text: [facility] NOTE NAME: CHRISTY MURPHY NO.: [id number] DATE OF SERVICE: 06/26/2019 [facility] [place] DATE OF : 1955 SKILLED NURSING CHART VISIT NOTE CHIEF COMPLAINT: Followup for renal disease, type 2 diabetes mellitus, and other medical issues. SUBJECTIVE FINDINGS: The patient was seen in his room sitting up in his wheelchair at [facility]. I remained greater than 6 feet [...] SYSTEMS: See above. MEDICATIONS: Reviewed in the senior living record. CODE STATUS: Full code. PHYSICAL EXAMINATION: [...] DICTATED BY: Diane Lerner PA-C PG/Meagan JOB# [id number] cc:[facility] [place] [facility] PROGRESSon 06-18-2019 PROGRESS HNO ID: [id number] Author: Diane Lerner (Pa) Service: ? Author Type: Physician Professional Services Specialist Type: Progress Notes Filed: 06/19/2019 1:37 PM Note Text: [facility] NOTE NAME: CHRISTY MURPHY NO.: [id number] DATE OF SERVICE: 06/18/2019 [facility] [place] DATE OF : 1955 SKILLED NURSING CHART VISIT NOTE CHIEF COMPLAINT: Follow up for end-stage renal disease, type 2 diabetes mellitus, weakness, and other medical issues. SUBJECTIVE FINDINGS: The patient was seen in his room sitting up in his wheelchair at [facility]. I remained greater than 6 feet [...] lift for transfers. MEDICATIONS: Reviewed in the senior living record. CODE STATUS: Full code. PHYSICAL EXAMINATION: [...] DICTATED BY: Diane Lerner PA-C PG/Meagan JOB# [id number] cc:Toña Barker [facility] PROGRESSon 06-16-2019 PROGRESS HNO ID: [id number] Author: Diane Lerner (Pa) Service: ? Author Type: Physician Professional Services Specialist Type: Progress Notes Filed: 06/17/2019 3:57 PM Note Text: [facility] NOTE NAME: CHRISTY MURPHY NO.: [id number] DATE OF SERVICE: 06/16/2019 [facility] [place] DATE OF : 1955 CHIEF COMPLAINT: Skilled followup visit for type 2 diabetes mellitus, renal disease, and other medical issues. SUBJECTIVE FINDINGS: The patient was seen in his room lying in bed at [facility]. I remained greater than 6 feet [...] Please see above. MEDICATIONS: Reviewed in the senior living record. CODE STATUS: Full code. PHYSICAL EXAMINATION: Temperature 98.2, pulse 75, respirations 16, BP 108/55, pulse oximetry 96%. Examination revealed an obese, shtslq-rzin-ryoxnylar male lying in bed. He was in [...] DICTATED BY: Diane Lerner PA-C PG/Meagan JOB# [id number] cc:Tñoa [facility] PROGRESSon 06-15-2019 PROGRESS HNO ID: [id number] Author: Saad Ahumada Service: ? Author Type: Physician Type: Progress Notes Filed: 06/18/2019 4:17 PM Note Text: [facility] SKILLED NURSING NOTE NAME: CHRISTY MURPHY NO.: [id number] DATE OF SERVICE: 06/15/2019 Toña [place] DATE OF : 1955 NEW PATIENT HISTORY AND PHYSICAL HISTORY OF PRESENT ILLNESS: The patient is a 63-year-old male who was admitted to us from [facility] with the diagnosis of acute [...] hospital with fever and increasing malaise. At [facility], he was treated for congestive heart failure exacerbation and bacterial pneumonia with antibiotics. However, his condition worsened requiring intubation, after which he was transferred to [facility] Int[facility] where he was diagnosed with influenza A pneumonia with sepsis complicated by ARDS. He did require prolonged intubation and mechanical ventilation with subsequent tracheostomy and PEG tube placement. He did receive broad-spectrum IV antibiotic therapy as well as Tamiflu. However, his renal function worsened and he eventually required new-onset hemodialysis. He was then transferred to [facility] for continued aggressive medical management and [...] possible. DICTATED BY: MD FLAKITO White/Meagan JOB# [id number] cc:[facility] Operative Reporton 0 Operative Report MR#: [id number] S [facility] Pt. Name: Corbin Murphy Room #: D5 [...] patient was consented and brought to the microbiology lab technician. The patient was placed in supine position. [...] and the tubing of the PermCath size 14.5-Czech x 24 cm was tunneled starting with [...] P/Laly Amaro MD Date Trans: 06/04/2019 01:35 P/gisele [id number] cc: Violeta Alejo M.D. [address] [place] [id number] [facility] Vital Signs Date Time Vital Sign Value Performing Clinician Facility 01-31-2023 09:47-0500 Body height 177.8 cm Corbin Ying DO Work Phone: [facility] 01-31-2023 09:47-0500 Body mass index (BMI) [Ratio] 29.41 kg/m2 Corbin Ying DO Work Phone: [facility] 01-31-2023 09:47-0500 Body weight 92.99 kg Corbin Ying DO Work Phone: [facility] 01-31-2023 09:47-0500 Diastolic blood pressure 62 mm[Hg] Corbin Ying DO Work Phone: [facility] 01-31-2023 09:47-0500 Heart rate 76 /min Corbin Ying DO Work Phone: [facility] 01-31-2023 09:47-0500 Systolic blood pressure 122 mm[Hg] Corbin Ying DO Work Phone: [facility] 08-09-2022 14:15-0400 Body height 180.34 cm Alfredo Acosta Other [facility] Other 08-09-2022 14:15-0400 Body mass index (BMI) [Ratio] 28.73 kg/m2 Alfredo Acosta Other [facility] Other 08-09-2022 14:15-0400 Body temperature 97.3 [degF] Alfredo Acosta Other [facility] Other 08-09-2022 14:15-0400 Body weight 93.44 kg Alfredo Acosta Other [facility] Other 08-09-2022 14:15-0400 Diastolic blood pressure 62 mm[Hg] Alfredo Acosta Other [facility] Other 08-09-2022 14:15-0400 Systolic blood pressure 99 mm[Hg] Alfredo Acosta Other [facility] Other 07-30-2022 09:03-0400 Blood Pressure Location Evelyn Alarcon [facility] 07-30-2022 09:03-0400 Diastolic blood pressure 60 mm[Hg] Evelyn Dorian [facility] 07-30-2022 09:03-0400 Heart rate 77 /min Evelyn Dorian [facility] 07-30-2022 09:03-0400 SaO2% (BldA) [Mass fraction] 98 % Evelyn Dorian [facility] 07-30-2022 09:03-0400 Systolic blood pressure 110 mm[Hg] Mohlowell Dorian [facility] 07-12-2022 13:24-0400 Blood Pressure Location Mohlowell Dorian [facility] 07-12-2022 13:24-0400 Diastolic blood pressure 62 mm[Hg] Mohlowell Dorian [facility] 07-12-2022 13:24-0400 Heart rate 94 /min Evelyn Dorian [facility] 07-12-2022 13:24-0400 SaO2% (BldA) [Mass fraction] 97 % Evelyn Dorian [facility] 07-12-2022 13:24-0400 Systolic blood pressure 94 mm[Hg] Mohlowell Dorian [facility] 07-09-2022 19:00-0400 Diastolic blood pressure 65 mm[Hg] Adam Weinberg [facility] 07-09-2022 19:00-0400 Heart rate 74 /min [facility] 07-09-2022 19:00-0400 Mean blood pressure 80 mm[Hg] [facility] 07-09-2022 19:00-0400 Respiratory rate 17 /min [facility] 07-09-2022 19:00-0400 Systolic blood pressure 110 mm[Hg] [facility] 07-09-2022 18:30-0400 Heart rate 75 /min [facility] 07-09-2022 18:30-0400 Respiratory rate 23 /min [facility] 07-09-2022 18:00-0400 Diastolic blood pressure 60 mm[Hg] [facility] 07-09-2022 18:00-0400 Heart rate 79 /min [facility] 07-09-2022 18:00-0400 Mean blood pressure 73 mm[Hg] [facility] 07-09-2022 18:00-0400 Respiratory rate 11 /min [facility] 07-09-2022 18:00-0400 SaO2% (BldA) [Mass fraction] 96 % [facility] 07-09-2022 18:00-0400 Systolic blood pressure 98 mm[Hg] [facility] 07-09-2022 17:30-0400 Diastolic blood pressure 55 mm[Hg] [facility] 07-09-2022 17:30-0400 Mean blood pressure 67 mm[Hg] [facility] 07-09-2022 17:30-0400 SaO2% (BldA) [Mass fraction] 98 % [facility] 07-09-2022 17:30-0400 Systolic blood pressure 90 mm[Hg] [facility] 07-09-2022 17:25-0400 Body temperature 98.06 [degF] [facility] 07-09-2022 17:25-0400 Heart rate 95 /min [facility] 07-09-2022 17:25-0400 Respiratory rate 16 /min [facility] 07-09-2022 17:25-0400 SaO2% (BldA) [Mass fraction] 98 % [facility] 03-15-2022 11:05-0500 Blood Pressure Location Evelyn Alarcon [facility] 03-15-2022 11:05-0500 Diastolic blood pressure 50 mm[Hg] Evelyn Dorian [facility] 03-15-2022 11:05-0500 Heart rate 75 /min Evelyn Cooleyan [facility] 03-15-2022 11:05-0500 SaO2% (BldA) [Mass fraction] 98 % Evelyn Cooleyan [facility] 03-15-2022 11:05-0500 Systolic blood pressure 90 mm[Hg] Evelyn Cooleyan [facility] 01-11-2022 11:29-0500 Body height 177.8 cm Violeta [employer] Work Phone: [facility] [employer] [facility] DO Work Phone: 01-11-2022 11:29-0500 Body mass index (BMI) [Ratio] 32.71 kg/m2 [employer] Work Phone: [facility] DO Work Phone: 01-11-2022 11:29-0500 Body surface area Derived from formula 2.21 m2 [employer] Work Phone: [facility] DO Work Phone: 01-11-2022 11:29-0500 Body weight 103.42 kg Violeta Durony Work Phone: [facility] DO Work Phone: 01-11-2022 11:29-0500 Diastolic blood pressure 60 mm[Hg] Violeta Durony Work Phone: [facility] [facility] DO Work Phone: 01-11-2022 11:29-0500 Heart rate 80 /min Violeta Falcon Hoy Work Phone: [facility] [facility] DO Work Phone: 01-11-2022 11:29-0500 Systolic blood pressure 98 mm[Hg] Violeta Durony Work Phone: [facility] [facility] DO Work Phone: 11-02-2021 12:32-0400 Blood Pressure Location Evelyn Cooleyan [facility] 11-02-2021 12:32-0400 Body temperature 97.7 [degF] [facility] 11-02-2021 12:32-0400 Diastolic blood pressure 63 mm[Hg] Evelyn Cooleyan [facility] 11-02-2021 12:32-0400 Heart rate 72 /min Evelyn Cooleyan [facility] 11-02-2021 12:32-0400 Respiratory rate 16 /min Evelyn Cooleyan [facility] 11-02-2021 12:32-0400 SaO2% (BldA) [Mass fraction] 96 % Evelyn Cooleyan [facility] 11-02-2021 12:32-0400 Systolic blood pressure 105 mm[Hg] Evelyn Dorian [facility] 10-26-2021 14:53-0400 Blood Pressure Location Evelyn Alarcon [facility] 10-26-2021 14:53-0400 Diastolic blood pressure 66 mm[Hg] Evelyn Alarcon [facility] 10-26-2021 14:53-0400 Heart rate 82 /min Evelyn Alarcon [facility] 10-26-2021 14:53-0400 SaO2% (BldA) [Mass fraction] 97 % Evelyn Alarcon [facility] 10-26-2021 14:53-0400 Systolic blood pressure 107 mm[Hg] Evelyn Alarcon [facility] 07-13-2021 11:47-0400 Body height 177.8 cm Violeta Ezekiel Hoy Work Phone: [facility] [facility] DO Work Phone: 07-13-2021 11:47-0400 Body mass index (BMI) [Ratio] 32.14 kg/m2 Violeta Ezekiel Hoy Work Phone: [facility] DO Work Phone: 07-13-2021 11:47-0400 Body surface area Derived from formula 2.19 m2 Violeta M Hoy Work Phone: [facility] [facility] DO Work Phone: 07-13-2021 11:47-0400 Body weight 101.61 kg Violeta M Hoy Work Phone: [facility] DO Work Phone: 07-13-2021 11:47-0400 Diastolic blood pressure 76 mm[Hg] Violeta M Hoy Work Phone: [facility] [facility] DO Work Phone: 07-13-2021 11:47-0400 Heart rate 66 /min Violeta M Hoy Work Phone: [facility] [facility] DO Work Phone: 07-13-2021 11:47-0400 Systolic blood pressure 112 mm[Hg] Violeta Alejo Work Phone: [facility] DO Work Phone: Encounters Encounter Date Encounter Type Care Provider Facility Start: 04-09-2023 End: 04-16-2023 Evaluation and management of inpatient Gabriel Gould Facility:[facility] Start: [facility] Start: 03-15-2023 End: 03-16-2023 ambulatory [facility] Start: 02-06-[address] [facility] Start: 01-31-2023 End: 01-31-[address] [facility] Start: 01-31-2023 End: 01-31-2023 Office outpatient visit 15 minutes Corbin Neridon DO Work Phone: [facility] Comment on above: Arteriosclerotic hea rt disease; S/P PTCA (percutaneous transluminal coronary angioplasty); ESRD (end stage renal disease) on dialysis ([facility]); Diabetes mellitus of other type without complication, unspecified whether 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 ([facility]); Essential hypertension; Hyperlipidemia, unspecified hyperlipidemia type; Never smoked any substance Start: 01-18-2023 Encounter for other preprocedural examination [facility] Start: 01-18-2023 End: 01-18-2023 ambulatory [facility] Start: 01-16-2023 Encounter for other preprocedural examination [facility] Start: 01-15-2023 End: 01-15-2023 ambulatory [facility] Start: 01-09-2023 End: 01-10-2023 ambulatory [facility] Start: 10-16-2022 ambulatory ROSANNEVICK ESPINOZA [facility] Start: 10-02-2022 End: 10-02-2022 ambulatory LUISANALOWELL COOLEYAN [facility] Start: 08-16-2022 End: 08-17-2022 ambulatory Evelyn HopeElodia Dorian Facility:[facility] Start: 08-16-2022 End: 08-16-2022 Patient encounter procedure Evelyn HerminiaElodia Alarcon [facility] Start: 08-15-2022 Rx Renewal Violeta Alejo Work Phone: [facility] DO Work Phone: Start: 08-09-2022 End: 08-09-2022 ambulatory Alfredo Acosta Other [facility] [employer] Other Start: 08-09-2022 Office outpatient vi sit 25 minutes Alfredo Acosta [facility] Start: 07-30-2022 End: 07-31-2022 ambulatory Luisanalowell HopeElodia Alarcon Facility:[facility] Start: 07-30-2022 End: 07-30-2022 Patient encounter procedure Evelyn HerminiaElodia Alarcon [facility] Start: 07-18-[address] Violeta Alejo Facility:[id number] Start: 07-12-2022 End: 07-20-2022 Evaluation and management of inpatient Fuentes Rodriguez Facility:[facility] Start: 07-12-2022 End: 07-13-2022 ambulatory Luisanalowell HopeElodia Dorian Facility:[facility] Start: 07-12-2022 End: 07-17-2022 Pre-admission assessment Evelyn Alarcon [facility] Start: 07-12-2022 End: 07-12-2022 Patient encounter procedure Evelyn Alarcon [facility] Start: 07-09-2022 End: 07-09-2022 Emergency department patient visit Adam Weinberg Facility:[facility] Start: 07-09-2022 End: 07-09-2022 Emergency department patient visit Adam Weinberg [facility] Start: 07-02-2022 End: 07-03-2022 ambulatory Evelyn Alarcon Facility:[facility] Start: 06-29-2022 End: 06-29-2022 Emergency department patient visit Reji Azar Facility:[facility] Start: 06-26-[address] VIOLETA ALEJO . Facili ty:[facility] Start: 06-05-2022 End: 06-06-[address] VIOLETA ALEJO . Facility: Start: 05-17-2022 ambulatory UNKNOWN PROVIDER Facili ty:[facility] Start: 05-09-2022 End: 05-09-[address] VIOLETA ALEJO . Facility: Start: 05-08-2022 End: 05-09-2022 ambulatory LAUREN SCHWARZ Facility:[facility] Start: 04-12-2022 End: 04-13-2022 ambulatory LEANNE GAYE Facility: Start: 03-20-2022 End: 03-21-2022 ambulatory [facility] Sharon [facility] Facility:[facility] Start: 03-15-2022 End: 03-15-2022 ambulatory Evelyn Alarcon Facility:[facility] Start: 03-15-2022 End: 03-16-2022 ambulatory ASHOK ALARCON Facility:[facility] Start: 03-15-2022 End: 03-15-2022 Admission to same day surgery center Evelyn Alarcon [facility] Start: 03-15-2022 End: 03-16-2022 ambulatory Evelyn Alarcon Facility:[facility] Start: 03-15-2022 End: 03-15-2022 Patient encounter procedure ASHOK ALARCON [facility] Start: 03-15-2022 End: 03-15-2022 Patient encounter procedure Evelyn Alarcon [facility] Start: 03-06-2022 End: 03-07-2022 ambulatory LEANNE HUIZAR Facility: Start: 02-27-2022 End: 02-28-[address] VIOLETA ALEJO . Facility: Start: 02-15-2022 End: 02-16-2022 ambulatory NATHEN LUCIA Facility: Start: 01-11-2022 End: 01-11-[address] VIOLETA ALEJO . Facility:[facility] Start: 01-11-2022 Office outpatient vi sit 15 minutes Violeta M Hoy Work Phone: [facility] DO Work Phone: Start: 01-11-[address] Corbin Ying Facility: Start: 11-02-2021 End: 11-02-2021 ambulatory Evelyn Alarcon Facility:[facility] Start: 11-02-2021 End: 11-02-2021 Admission to same day surgery center Evelyn Alarcon [facility] Start: 10-26-2021 End: 10-27-2021 ambulatory Evelyn Alarcon Facility:[facility] Start: 10-26-2021 End: 10-26-2021 Patient encounter procedure Evelyn HerminiaElodia Alarcon [facility] Start: 10-25-2021 Rx Renewal Violeta M Hoy Work Phone: [facility] DO Work Phone: Start: 08-28-2021 End: 08-28-2021 ambulatory NYLA MOTA . 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 creation of av fistu la of left arm. Cardiac catheterization Enoch las Ezekiel Hoy Work Phone: Cholecystectomy Violeta Falcon Ho y Work Phone: Cholecystectomy Evelyn Osma n Colonoscopy Violeta M Hoy Work Phone: H/O: tracheostomy Mohamed Os man Hernia of abdominal cavity (disorder) Evelyn Dorian History of percutane ous transluminal coronary angioplasty [...] hyperlipidemia type Expected: 01/31/2023 (Approximate), Expires: 02/01/2024 [facility] Work Phone: Comment on above: Expected: 01/31/2023 (Approximate), Expi res: 02/01/2024 Start: 01-31-2023 End: 02-01-2024 Aspartate aminotransferase [Enzymatic activity/volume] in Serum or Plasma by With P-5'-P Aspartate Aminotransferase Lab Routine Arteriosclerotic heart disease Essential hypertension Hyperlipidemia, unspecified hyperlipidemia type Expected: 01/31/2023 (Approximate), Expires: 02/01/2024 [facility] Work Phone: Comment on above: Expected: 01/31/2023 (Approximate), Expi res: 02/01/2024 Start: 01-31-2023 End: 02-01-2024 Lipid 1996 panel - Serum or Plasma Lipid Panel Lab Routine Arteriosclerotic heart disease Essential hypertension Hyperlipidemia, unspecified hyperlipidemia type Expected: 01/31/2023 (Approximate), Expires: 02/01/2024 [facility] Work Phone: Comment on above: Expected: 01/31/2023 (Approximate), Expi res: 02/01/2024 Start: 01-15-2023 FUV, Provider: Corbin Ying, Status: Pen, Time: 10:10 AM FUV, Provider: Corbin Ying, Status: Pen, Time: 10:10 AM [facility] 250 DO Work Phone: Start: 10-12-2022 Influenza vaccination Influenza Vaccine (#1) [facility] Start: 01-11-2022 FUV, Provider: Corbin Ying, Status: Pen, Time: 11:10 AM FUV, Provider: Corbin Ying, Status: Pen, Time: 11:10 AM [facility] DO Work Phone: Start: 10-20-2021 Echocardiography Echocardiogram [facility] Start: 03-28-2021 COVID-19 Vaccine (4 - Pfizer series) COVID-19 Vaccine (4 - Pfizer series) [facility] Start: 11-21-2005 Zoster Vaccines (1 of 2) Zoster Vaccines (1 of 2) [facility] Start: 11-21-1977 DTaP/Tdap/Td Vaccines (1 - Tdap) DTaP/Tdap/Td Vaccines (1 - Tdap) [facility] Start: 11-21-1974 Urine screening for protein Diabetes: Urine Protein Screening [facility] Start: 11-21-1973 Hepatitis C screening Hepatitis C Screening [facility] Start: 11-21-1965 Diabetic foot examination Diabetes: Foot Exam [facility] Start: 11-21-1965 Glaucoma screening Diabetes: Retinopathy Screening [facility] Start: 11-21-1961 Pneumococcal Vaccine: 65+ Years (1 - PCV) Pneumococcal Vaccine: 65+ Years (1 - PCV) [facility] Start: 1955 Creatinine measurement Creatinine Level [facility] Start: 1955 Hemoglobin A1c measurement Diabetes: Hemoglobin A1C [facility] Start: 1955 Lipid panel Lipid Panel [facility] Start: 1955 Medicare Annual Wellness Visit Medicare Annual Wellness Visit (AWV) [facility] Start: 1955 Potassium measurement Potassium Level [facility] Start: 1955 Screening for malignant neoplasm of colon [facility] Start: 1955 Thyroid stimulating hormone measurement TSH Level [facility] Immunizations Immunization Date Immunization Notes Care Provider Charo mayorga 01-31-2021 Pfizer-BioNTech COVID-19 Vacc 30 MCG/0.3ML Intramuscular Suspension Violeta Alejo Work Phone: -Located Within [facility] 250 DO Work Phone: 07-26-2020 Pfizer-BioNTech COVID-19 Vacc 30 MCG/0.3ML Intramuscular Suspension Violeta Alejo Work Phone: -Located Within [facility] DO Work Phone: 07-05-2020 Pfizer-BioNTech COVID-19 Vacc 30 MCG/0.3ML Intramuscular Suspension Violeta Alejo Work Phone: [facility] Payers Date Payer Category Payer Self-pay [id number] 2023 Unknown [id number] 2019 Medicare MEDICARE MEDICAR E PART A AND B [id number] 2019-Present [address] [place] [address] [id number] 2018 Unknown [id number] 2015 Unknown [id number] 1959 Medicare [id number] 1955 Unknown [id number] 2.16.840.1.590692.3.579.2.647 1955 Unknown [id number] 2.16.840.1.470053.3.579.2.732 1955 Unknown [id number] 2.16.840.1.932500.3.579.2.593 1955 Unknown [id number] 2.16.840.1.118837.3.579.2.593 1955 Unknown [id number] 2.16.840.1.822729.3.579.2.593 1955 Unknown [id number] 2.16.840.1.543213.3.579.2.593 1955 Unknown [id number] 2.16.840.1.050875.3.579.2.593 1955 Unknown [id number] 2.16.840.1.602349.3.579.2.593 1955 Unknown [id number] 2.16.840.1.513364.3.579.2.593 1955 Unknown [id number] 2.16.840.1.397929.3.579.2.593 1955 Unknown [id number] 2.16.840.1.939027.3.579.2.593 1955 Unknown [id number] 2.16.840.1.643722.3.579.2.593 1955 Unknown [id number] 2.16.840.1.015681.3.579.2.593 1955 Unknown [id number] 2.16.840.1.994704.3.579.2.727 1955 Unknown [id number] 2.16.840.1.181232.3.579.2.727 1955 Unknown [id number] 2.16.840.1.973819.3.579.2.727 1955 Unknown [id number] 2.16.840.1.329123.3.579.2.727 1955 Unknown [id number] 2.16.840.1.965684.3.579.2.727 1955 Unknown [id number] 2.16.840.1.529105.3.579.2.727 1955 Unknown [id number] 2.16.840.1.991646.3.579.2.727 1955 Unknown [id number] 2.16.840.1.709701.3.579.2.727 1955 Unknown [id number] 2.16.840.1.192013.3.579.2.727 1955 Unknown [id number] 2.16.840.1.368170.3.579.2.727 1955 Unknown [id number] 2.16.840.1.772111.3.579.2.727 1955 Unknown [id number] 2.16.840.1.485202.3.579.2.727 1955 Unknown [id number] 2.16.840.1.235150.3.579.2.356 1955 Unknown [id number] 2.16.840.1.131178.3.579.2.356 1955 Unknown [id number] 2.16.840.1.000401.3.579.2.1244 Unknown Unknown [id number] 2.16.840.1.170661.3.579.2.531 Social History Date Type Detail Facility Tobacco smoking stat [facility] Unknown if ever smoked [facility] Start: 1955 Sex Assigned At Male F [facility] Start: 01-31-2023 Caffeine use Caffeine use -[facility] 250 DO Work Phone: Comment on above: 2-3 times weekly- Co ffee. 1 pop daily; Start: 07-07-2020 End: 01-31-2023 Never smoked tobacco (finding) [facility] Start: 01-31-2023 Male [facility] Tobacco smoking status Never [facility] Tobacco [facility] Comment on above: denies Tobacco smoking status No Smokin g Status Entered [facility] Start: 01-31-2023 Tobacco use and exposure Smokeless tobacco non-user [facility] Work Phone: Start: 01-31-2023 Alcohol intake Lifetime non-d carl (finding) [facility] Work Phone: Start: 1955 Sex Assigned At Not on file U [facility] Work Phone: Start: 01-21-2023 End: 01-31-2023 Exposure to SARS-CoV-2 (event) Not sure [facility] Medical Equipment Procedure Code Equipment [...] Assessment Result Facility 07-30-2022 Functional Status No [facility] 07-12-2022 Functional Status No [facility] 07-09-2022 Functional Status N/A [facility] 03-15-2022 Functional Status N/A [facility] 03-15-2022 Functional Status No [facility] 11-02-2021 Functional Status N/A [facility] 10-26-2021 No [facility] Clinical Notes 11-02-2021 to 03-15-2023 Corbin Ying, DO - 01/31/2023 10:00 AM ESTPatient Instructions Note Date & Type Note Facility 03-15-2023 Note Subjective Patient ID: Corbin Murphy is a 67 y.o. male who presents for Follow-up (Check maturation [facility] AVF created on 01/18/23). Corbin is a 67 year old male with history of ESRD on HD via left IJ permacath who presents for follow up right brachiocephalic AVF creation on 01/18/[address] Alarcon. Patient has a history of right radiocephalic AVF that failed to mature, history of significantly stenosed vein proximal to the anastomosis. Denies any pain, numbness/tingling in the hand. He had fisulta US which demonstrated adequate size, depth with average volume flow of 556. Review of Systems Constitutional: Negative for activity [...] constipation, diarrhea, nausea, rectal pain and vomiting. Endocrine: Negative for cold intolerance, heat intolerance, polydipsia, polyphagia and polyuria. Skin: Negative for color change, pallor, rash [...] visit: End stage renal disease on dialysis (CMS/HCC) -right brachiocephalic AVF creation on 01/18/23 -Patient had ultrasound today, fistula/graft is meeting cannulation criteria -May cannulate fistula using standard sized needles starting next dialysis session -Advised patient to call to schedule permacath removal after successful dialysis for 1-2 weeks, or per dialysis protocol No diagnosis found. No orders of the defined types were placed in this encounter. No results found for this or any previous visit (from the past 36 hour(s)). No follow-ups on file. [facility] 02-06-2023 Note Subjective Patient ID: Corbin Murphy [...] visit: End stage renal disease on dialysis ([facility]) - [facility] Us Dialysis Fistula; Future -Surgical incision is [...] past 36 hour(s)). No follow-ups on file. [facility] 01-31-2023 History of Present illness Narrative Subjective [...] hypotension. 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 Diabetes mellitus of other type without complication, unspecified whether snf insulin use ([facility]) 5. Essential hypertension 6. Hyperlipidemia, unspecified hyperlipidemia type 7. Never smoked any substance documented in this encounter [facility] Work Phone: 01-31-2023 Instructions Sarita [...] of your visit. documented in this encounter [facility] Work Phone: 01-18-2023 Note Patient: Corbin mckeon Procedure Summary Date: 01/18/23 Room / Location: [facility] OPERATING ROOM 06 / [facility] Operating Room Anesthesia Start: 1008 Anesthesia Stop: 1150 Procedure: Right Radial Cephalic Fistula Creation - CPT Codes 42073,53423,90445,26437 (Right: Arm Upper) Diagnosis: End stage renal disease on dialysis (CMS/[facility]) Encounter for pre-operative examination (End stage renal [...] per anesthesia protocol. No notable events documented. [facility] 01-18-2023 Note Airway Date/Time: 01/18/2023 10:16 AM Urgency: elective Airway not difficult General Information and Staff Patient location during procedure: OR Anesthesiologist: Leanne Chavez MD Resident/SUPERVISOR TRANSFERRING AND BOXING/CAA: Katerin Chung MD Performed: resident/SUPERVISOR TRANSFERRING AND BOXING/CAA Indications and Patient Condition Indications for airway [...] 23 Number of attempts at approach: 1 [facility] 01-18-2023 Note Patient: Corbin mckeon Procedure Information Date/Time: 01/18/23 1000 Procedure: Right Upper Extremity Fistula Creation - CPT Codes 78233,44011,98722,14732 (Right) Location: [facility] OPERATING ROOM 06 / [facility] Operating Room Surgeons: Evelyn Alarcon MD Relevant [...] Plan discussed with attending. Additional Equipment Requests [facility] 01-18-2023 Note Pre-operative Histor y and Physical [...] Phan MD PGY-4 Vascular Surgery Resident 01/18/23 [facility] 01-15-2023 Note Arteriovenous Fistul a Procedure Note [...] the patient was taken back to the Threat Monitoring Analyst placed in supine position appropriate cardiopulmonary except [...] present and scrubbed for the entire procedure. [facility] 01-10-2023 Note as [facility] 01-09-2023 Note Subjective Patient ID: Corbin Murphy [...] balloon assisted maturation with Dr. Alarcon in microbiology lab technician -Discussed the risks, benefits, alternatives of the procedure with the patient and time was alloted for all questions to be answered. Patient provided both verbal and written consent No diagnosis found. No orders of the defined types were placed in this encounter. No results found for this or any previous visit (from the past 36 hour(s)). No follow-ups on file. [facility] 10-16-2022 Note aSubjective Patient ID: Corbin Murphy [...] past 36 hour(s)). No follow-ups on file. [facility] 10-16-2022 Note aSubjective Patient ID: Corbin Murphy [...] without issues- dial[place]zes near [place]. Review of Systems Neurological: Positive for numbness. [...] ESRD (end stage renal disease) on dialysis ([facility]) Vascular US upper extremity hemodialysis access duplex right #ESRD on HD using CVC currently with recent creation R RCAVF - hold off on cannulation as AVF matures -continue with HD via CVC - hand/flight control specialist exercises demonstrated - US of AVF at 6-8 weeks and f/up at that time, sooner if needed [facility] 10-03-2022 Note Patient: Corbin mckeon Procedure Summary Date: 10/02/22 Room / Location: [facility] OPERATING ROOM 06 / [facility] Operating Room Anesthesia Start: 1705 Anesthesia Stop: 1846 Procedure: CREATION, RADIOCEPHALIC AV FISTULA (Right: Arm Lower) Diagnosis: (End stage renal disease) Surgeons: Evelyn Alarcon MD Responsible Provider: Petra Degroot MD Anesthesia Type: general ASA Status: 4 Anesthesia Type: general Vitals Value Taken Time BP 105/68 10/02/22 1859 Temp 36.2 ???C (97.2 ???F) 10/02/22 1844 Pulse 74 10/02/22 1859 Resp 18 10/02/22 185 SpO2 95 % [...] per anesthesia protocol. No notable events documented. [facility] 10-02-2022 Note Patient: Corbin mckeon Procedure Summary Date: 10/02/22 Room / Location: [facility] OPERATING ROOM 06 / [facility] Operating Room Anesthesia Start: 1706 Anesthesia Stop: Procedure: CREATION, RADIOCEPHALIC AV FISTULA (Right: Arm Lower) Diagnosis: (End stage renal disease) Surgeons: Evelyn Alarcon MD Responsible Provider: Petra Degroot MD Anesthesia Type: general ASA Status: 4 Anesthesia Post Transport Note Transport to: PACU O2 Route: room air Patient Monitor: direct observation Transport: uneventful Patient condition is: stable [facility] 10-02-2022 Note Airway Date/Time: 10/02/2022 5:21 PM Urgency: elective Airway not difficult General Information and Staff Patient location during procedure: OR Anesthesiologist: Petra Degroot MD Resident/SUPERVISOR TRANSFERRING AND BOXING/CAA: LATRELL Luciano Performed: resident/SUPERVISOR TRANSFERRING AND BOXING/CAA Indications and Patient Condition Indications for airway [...] fit tight but without resistance through cords/trachea [facility] 10-02-2022 Note Patient: Corbin mckeon Procedure Information Date/Time: 10/02/22 1430 Procedure: CREATION, AV FISTULA (Right) - start as last case Location: [facility] OPERATING ROOM 06 / [facility] Operating Room Surgeons: Evelyn Alarcon MD Relevant [...] with patient who. Plan discussed with resident, SUPERVISOR TRANSFERRING AND BOXING and CAA. Additional Equipment Requests [facility] 08-09-2022 Evaluation note Encounter Date Diagnosis Assessment [...] dialysis fistula, subsequent encounter (ICD-10 - T82.7XXD) [facility] 06-08-2023 [facility] CenterComment on above:Result Comment: Electronically Signed By: Nathalie HAAS\.br\Date and Time Signed: 07/19/22 17:35 EDT\.br\Electronically Co-Signed By: Chandrakant LEW MD\.br\Date and Time Co-Signed: 07/19/2316:38 [id number] NotePT Evaluation done this date. Pt. with on AM-PAC this date. Very weak and fatigued. Difficulty standing upright to use FWW safely. Recommend SNF.[facility]06-01-2023 NoteLakehealth [facility]point Medical CenterComment on above: Result Comment: Electronically Signed By: Nathalie HAAS\.br\Date and Time Signed: 07/12/22 17:08 EDT\.br\Electronically Co-Signed By: Michael FISH, Fuentes Lemons\.br\Date and Time Co-Signed: 07/12/22 17:46 [id number] Hospital Discharge instructions Patient Education 07/09/2022 19:31:06 [...] Follow these instructions at home: Medicines Take dxqu-weo-bybkihz and prescription medicines only as told by [...] provider. Document Revised: 07/24/2021 Document Reviewed: 07/24/2021 [employer] Patient Education 2022 [employer]. Follow Up Care 07/09/2022 17:23:13 With:Evelyn Alarcon Address: [address] [place] [id number] Business (1) When:07/12/2022 18:59:06 Comments:Follow-up with Dr. Alarcon for further evaluation of your fistula. With:Violeta Alejo Address: [address] [place] [phone]- Business (1) When:07/12/2022 18:58:50 Comments:Follow-up with your primary care provider in 3 to 5 days. If symptoms worsen, do not improve, or new symptoms arise please report back to emergency department for further evaluation. [facility]05-28-2023 [facility]Result Comment: Electronically Signed By: Pedro ARAUZ MD\.br\Date and Time Signed: 07/08/22 09:40 [id number] Note [id number]:127[facility] 07-02-2022 [facility]:Result Comment: Electronically Signed By: Pedro ARAUZ MD\.br\Date and Time Signed: 07/02/22 17:10 [id number]:127 [facility]02-02-2023 Hospital Discharge instructions Patient Education [...] relax (sedative) during your procedure. Medicines Take cxwv-sww-qlnbytw and prescription medicines only as told by your health care provider. Puncture site care Follow instructions from your health care provider about how to take care of the site where catheters were inserted. Make sure you: ?Wash your hands with soap and water before you change your bandage (dressing). If soap and water are not available, use hand director critical care. ?Change your dressing as told by your [...] told by your health care provider. Take ivwc-dmv-hqpwkvm and prescription medicines only as told by [...] 06/14/2014 Document Revised: 02/28/2018 Document Reviewed: 02/28/2018 [employer] Patient Education Nostalgia Bingo Follow Up Care 03/15/2022 11:30:19 With:Evelyn Alarcon Address: [address] [place], [place] [id number] [facility] (1) When: Unknown Comments:as needed [facility]02-02-2023 Evaluation + Plan noteExtracted from: Title:Procedure [...] Oxygen Protocol Patient Education Saline Lock Insert [facility]09-23-2022 Note [id number]:127[facility] 11-02-2021 Hospital Discharge instructions Patient [...] relax (sedative) during your procedure. Medicines Take yjdx-lfl-iguaeqc and prescription medicines only as told by your health care provider. Puncture site care Follow instructions from your health care provider about how to take care of the site where catheters were inserted. Make sure you: ?Wash your hands with soap and water before you change your bandage (dressing). If soap and water are not available, use hand director critical care. ?Change your dressing as told by your [...] told by your health care provider. Take bekq-dxv-wympqig and prescription medicines only as told by [...] 06/14/2014 Document Revised: 02/28/2018 Document Reviewed: 02/28/2018 [employer] Patient Education 2020 [employer] Follow Up Care 10/27/2021 08:22:09 With:Evelyn Alarcon Address: [address] [place] [address]- Business (1) When: Unknown Comments:Call for followup appointment if needed With:Violeta Melo Address: [facility] [place] [address]- Business (1) When: Unknown [facility] No data available for this section [facility] Future Appointments Appointment Date:08/06/2022 10:00:00 AM Scheduled Provider:Evelyn Alarcon MD Location:.[facility] Appointment Type:Vascular Follow Up (FT) [facility] Future Appointments Appointment Date:07/16/2022 12:00:00 PM Scheduled Provider: Location:[facility] Appointment Type:Surgery FT [facility]* Diagnosis Arteriosclerotic heart disease Coronary atherosclerosis of unspecified type of vessel, [place] or graft S/P PTCA (percutaneous transluminal coronary angioplasty) Postsurgical percutaneous transluminal coronary angioplasty status ESRD (end stage renal disease) on dialysis ([facility]) End stage renal disease Diabetes mellitus of other type without complication, unspecified whether 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 ([facility]) Essential hypertension Unspecified essential hypertension Hyperlipidemia, unspecified hyperlipidemia type Never smoked any substance documented in this encounter [facility] Work Phone: History general Narrative [...] LEG 2010 Hospitalization History Heart attack 04-16-18 [facility] Other Hospital Discharge instructions No data available for this section [facility] No data available for this section [facility] HospitalReason for referral (narrative)* Consultation (Routine) - Authorized Specialty Diagnoses / Procedures Referred By Khadijah tamayo Referred To Contact Cardiology Diagnoses Arteriosclerotic heart disease Procedures Follow Up In Cardiology Corbin Ying DO [facility] [address], [address] [address] Corbin Ying DO [facility] [facility] [address], [address] [address] Referral ID Status Reason Start Date Expiration Date V isits Requested Visits Authorized [id number] Authorized 01/31/2023 01/31/2024 1 1 [facility] Work Phone: Summary Purpose Family History No [...] COVID illness in 2019. He underwent anterior NC with PCI chronic total occlusion of the proximal through mid LAD x2 drug-eluting stents in March 2018; follow-up echocardiogram revealed low normal left ventricular function with ejection fraction of 50% in September 2018. 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 [...] section and content) DATE CREATED AUTHOR 09/03/2019 [facility] DATE CREATED AUTHOR AUTHOR'S ORGANIZ ATION 05/19/2020 [facility] DATE CREATED AUTHOR AUTHOR'S ORGANIZ ATION 10/21/2020 [facility] DATE CREATED AUTHOR AUTHOR'S ORGANIZ ATION 01/12/2022 [facility] DATE CREATED AUTHOR AUTHOR'S ORGANIZ ATION 05/19/2022 [facility] DATE CREATED AUTHOR AUTHOR'S ORGANIZ ATION 06/20/2022 [facility] DATE CREATED AUTHOR AUTHOR'S ORGANIZ ATION 08/18/2022 [facility] DATE CREATED AUTHOR AUTHOR'S ORGANIZ ATION 11/24/2022 [facility] DATE CREATED AUTHOR AUTHOR'S ORGANIZ ATION 02/03/2023 [facility] tals Ambulatory DATE CREATED AUTHOR AUTHOR'S ORGANIZ ATION 03/24/2023 [facility] DATE CREATED AUTHOR AUTHOR'S ORGANIZ ATION 04/30/2023 [facility] Care Team (unrecognized sect ion and content) 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 [employer] provides no warranty or guarantee of the accuracy or completeness of information in this document.
[2023-05-07 11:01] LABS: C Reactive Protein 3.99 mg/dL (<=0.50)
== END 2023-05-07 10:33 | disposition home or self-care (01) ==
LOC: LAB 10:32
PROVIDERS: PCP Family Medicine
DX: M86.9 Osteomyelitis, unspecified (principal)
CPT/HCPCS: 36415; 86140

== ENCOUNTER 2023-05-14 09:12 | Outpatient (REF) | payer MEDICARE, SELFPAY ==
[2023-05-14 09:30] LABS: C Reactive Protein 5.21 mg/dL (<=0.50)
== END 2023-05-14 09:13 | disposition home or self-care (01) ==
LOC: LAB 09:12
PROVIDERS: PCP Family Medicine; Visit Provider Internal Medicine Infectious Disease
DX: M86.9 Osteomyelitis, unspecified (principal)
CPT/HCPCS: 36415; 86140

== ENCOUNTER 2023-05-21 16:18 | Outpatient (OUT) | payer MEDICARE, SELFPAY | END 2023-05-21 16:19 | disposition home or self-care (01) | LOC: WC 16:18 | PROVIDERS: PCP Family Medicine; Visit Provider Podiatrist Foot & Ankle Surgery | DX: E11.621 Type 2 diabetes mellitus with foot ulcer (principal); L97.521 Non-pressure chronic ulcer of other part of left foot limited to breakdown of skin; L97.511 Non-pressure chronic ulcer of other part of right foot limited to breakdown of skin | CPT/HCPCS: 11043 ==

== ENCOUNTER 2023-06-03 07:54 | Outpatient (OUT) | payer MEDICARE, SELFPAY ==
--- NOTE | 2023-06-03 08:02 | XR_ITS ---
[address] [address] Patient Name: SETH MURPHY MRN: [id number] date: 1955 Sex: M Assigned Patient Location: [facility] Current Patient Location: [facility] Accession/Order Number: [id number] Exam Date: 06/03/2023 09:05 Report Date: 06/03/2023 10:04 At the request of: GREG MESSINA Procedure: XR chest 2V EXAM: XR chest 2V HISTORY: CHF COMPARISON: None. TECHNIQUE: PA and lateral views of the chest. FINDINGS: The cardiomediastinal silhouette is enlarged. No focal consolidation is identified. There is no pneumothorax. No pleural effusion is noted. The osseous structures are intact. XR/XR chest 2V IMPRESSION: Cardiomegaly without overt failure. Electronically authenticated by: KATHY BAUTISTA Date: 06/03/2023 10:04
[2023-06-03 08:54] LABS: Basophils Percent Auto 0.6 % (0.2-2.0); Eosinophils Absolute Auto 0.1 10^3/uL (0.0-0.7); Eosinophils Percent Auto 1.7 % (0.9-7.0); Hematocrit 34.1 % (42.0-54.0); Hemoglobin 10.8 g/dL (14.0-18.0); Immature Granulocytes Abs Auto 0.05 10^3/uL (0.00-0.03); Immature Granulocytes Pct Auto 0.8 % (0.0-0.5); Lymphocytes Absolute Auto 0.8 10^3/uL (1.2-3.8); Lymphocytes Percent Auto 12.6 % (20.5-60.0); Mean Corpuscular HGB Conc 31.7 g/dL (29.9-35.2); Mean Corpuscular Hemoglobin 29.3 pg (25.9-34.0); Mean Corpuscular Volume 92.7 fL (80.0-94.0); Mean Platelet Volume 10.2 fL (9.5-13.5); Monocytes Absolute Auto 0.7 10^3/uL (0.3-0.8); Monocytes Percent Auto 11.3 % (1.7-12.0); Neutrophils Absolute Auto 4.8 10^3/uL (1.4-6.5); Platelet Count 223 10^3/uL (150-450); Red Blood Count 3.68 10^6/uL (4.70-6.10); Red Cell Distribution Width 13.5 % (11.0-15.0); White Blood Count 6.5 10^3/uL (4.0-11.0)
[2023-06-03 09:07] LABS: Anion Gap 17.2; BUN Creatinine Ratio 3.9; Calcium 9.5 mg/dL (8.5-10.1); Carbon Dioxide 25.2 mmol/L (21.0-32.0); Chloride 96 mmol/L (98-107); Estimated GFR (African America 6 (>=60); Estimated GFR (Non-African Ame 5 (>=60); Glucose 171 mg/dL (74-106); Potassium 4.4 mmol/L (3.5-5.1); Sodium 134 mmol/L (136-145)
[2023-06-03 09:27] LABS: INR 1.01; Partial Thromboplastin Time 31.3 sec (22.3-36.2); Prothrombin Time 10.7 sec (9.0-11.6)
== END 2023-06-03 07:55 | disposition home or self-care (01) ==
LOC: PST 07:54
PROVIDERS: PCP Family Medicine; Visit Provider Student in an Organized Health Care Education/Training Program
DX: Z01.810 Encounter for preprocedural cardiovascular examination (principal); Z01.812 Encounter for preprocedural laboratory examination; I50.9 Heart failure, unspecified
CPT/HCPCS: 36415; 71046; 80048; 85025; 85610; 85730

== ENCOUNTER 2023-06-04 15:55 | Outpatient (OUT) | payer MEDICARE, SELFPAY | END 2023-06-04 15:56 | disposition home or self-care (01) | LOC: WC 15:55 | PROVIDERS: PCP Family Medicine; Visit Provider Podiatrist Foot & Ankle Surgery | DX: E11.621 Type 2 diabetes mellitus with foot ulcer (principal); L97.521 Non-pressure chronic ulcer of other part of left foot limited to breakdown of skin; L97.511 Non-pressure chronic ulcer of other part of right foot limited to breakdown of skin; L97.522 Non-pressure chronic ulcer of other part of left foot with fat layer exposed | CPT/HCPCS: 11043 ==

== ENCOUNTER 2023-06-06 11:09 | Day surgery (SDC) | payer MEDICARE, SELFPAY ==
[2023-06-03 08:44] VITALS: BP 143/73; PULSE 83; TEMP 36.3; O2SAT 97; BMI 30.8
[2023-06-06 11:34] LABS: BUN Creatinine Ratio 3.1; Calcium 9.8 mg/dL (8.5-10.1); Carbon Dioxide 29.3 mmol/L (21.0-32.0); Chloride 94 mmol/L (98-107); Estimated GFR (African America 10 (>=60); Estimated GFR (Non-African Ame 9 (>=60); Glucose 200 mg/dL (74-106); Potassium 4.3 mmol/L (3.5-5.1); Sodium 132 mmol/L (136-145)
[2023-06-06 11:38] VITALS: BP 133/48; PULSE 42; TEMP 36.2; O2SAT 96
[2023-06-06 11:41] LABS: Basophils Absolute Auto 0.1 10^3/uL (0.0-0.1); Eosinophils Absolute Auto 0.2 10^3/uL (0.0-0.7); Eosinophils Percent Auto 2.2 % (0.9-7.0); Hematocrit 36.9 % (42.0-54.0); Hemoglobin 11.7 g/dL (14.0-18.0); Immature Granulocytes Abs Auto 0.05 10^3/uL (0.00-0.03); Immature Granulocytes Pct Auto 0.7 % (0.0-0.5); Lymphocytes Absolute Auto 1.1 10^3/uL (1.2-3.8); Lymphocytes Percent Auto 16.2 % (20.5-60.0); Mean Corpuscular HGB Conc 31.7 g/dL (29.9-35.2); Mean Corpuscular Hemoglobin 29.5 pg (25.9-34.0); Mean Corpuscular Volume 93.2 fL (80.0-94.0); Mean Platelet Volume 10.6 fL (9.5-13.5); Monocytes Percent Auto 14.3 % (1.7-12.0); Neutrophils Absolute Auto 4.4 10^3/uL (1.4-6.5); Neutrophils Percent Auto 65.6 % (43.0-75.0); Platelet Count 230 10^3/uL (150-450); Red Blood Count 3.96 10^6/uL (4.70-6.10); Red Cell Distribution Width 13.7 % (11.0-15.0); White Blood Count 6.7 10^3/uL (4.0-11.0)
[2023-06-06 11:42] LABS: Glucometer 201 mg/dL (74-106)
--- NOTE | 2023-06-06 11:48 | PC.NURSE ---
Fistula present to right forearm; thrill and bruit present ; extremities pink and warm
[2023-06-06] MEDS: 0.9 % SODIUM CHLORIDE 1,000 ML 50 ML IV (11:50)
--- NOTE | 2023-06-06 11:57 | PC.NURSE ---
Creatinine 6.54 today; charge nurse aware; dialysis yesterday
--- NOTE | 2023-06-06 12:00 | FL_ITS ---
[address] [address] Patient Name: SETH MURPHY MRN: [id number] date: 1955 Sex: M Assigned Patient [facility] Accession/Order Number: [id number] Exam Date: 06/06/2023 12:30 Report Date: 06/07/2023 06:55 At the request of: GREG MESSINA Procedure: FL Vascular Guidance EXAM: FL Vascular Guidance HISTORY: Right upper extremity fistulogram COMPARISON: None. TECHNIQUE: Intraprocedural images. 52 seconds of fluoroscopy. 8.98 mg. 6 images FINDINGS: Multiple images demonstrate iodinated contrast within vessels likely representing the subclavian and brachiocephalic veins FL/FL Vascular Guidance IMPRESSION: Images from fistulogram Electronically authenticated by: NATHEN LUCIA Date: 06/07/2023 06:55
[2023-06-06] MEDS: LIDOCAINE HCL 1% 100 MG/10 ML MDV INJ (12:37)
[2023-06-06] MEDS: IOHEXOL 300 MG/ML - 50 ML BTL INJ (12:45)
[2023-06-06] MEDS: SODIUM CHLORIDE 0.9% IRR (12:52)
[2023-06-06] MEDS: HEPARIN SODIUM PORCINE IRR (12:52)
[2023-06-06 13:08] VITALS: BP 138/71; PULSE 80; O2SAT 99
[2023-06-06 13:20] VITALS: BP 129/82; PULSE 68; O2SAT 97
[2023-06-06 13:50] VITALS: BP 94/69; PULSE 80; O2SAT 97
--- NOTE | 2023-06-06 15:28 | W.PM.OPNOTE ---
Surgery Operative Note Operative Note Procedure Date: 06/06/23 Pre-op Diagnosis: End-stage renal disease with malfunction right AV fistula and elevated pressure Post-op Diagnosis: same as pre-op Procedures performed: Right upper extremity fistulogram, right upper extremity venogram and central venogram Anesthesia: MAC Primary Surgeon: Evelyn Alarcon Complications: None Estimated blood loss (mL): 5 Findings: Patent fistula and central veins. Brisk flow. Specimens: None Drains: None Indications for Procedures: This is a pleasant 67-year-old gentleman who is radiocephalic fistula on the right side. He has elevated pressure intermittently during dialysis he was sent to us for fistulogram. Informed consent was obtained. Detailed description of Procedure: The patient was taken back to the operating room placed in the supine position and appropriate cardiopulmonary monitors were sent. Monitored anesthesia care was induced. Under local anesthesia micro access sheath was placed in the proximal fistula. Fistulogram and central venogram under fluoroscopy was done. There was no stenosis in the fistula upper extremity veins or the central veins. There was brisk flow with no concerns. The access site was closed using Monocryl suture. Pressure was held. Patient tolerated the procedure very well. Post Operative care instructions: Okay to use the fistula for dialysis.
== END 2023-06-06 14:17 | disposition home or self-care (01) ==
PROVIDERS: Anesthesiology; PCP Family Medicine; Visit Provider Student in an Organized Health Care Education/Training Program
PROC: (CPT 36901; principal; 2023-06-06 12:00)
DX: T82.898A Other specified complication of vascular prosthetic devices, implants and grafts, initial encounter (principal); I70.223 Atherosclerosis of native arteries of extremities with rest pain, bilateral legs; E11.22 Type 2 diabetes mellitus with diabetic chronic kidney disease; N18.6 End stage renal disease; Z99.2 Dependence on renal dialysis; I25.2 Old myocardial infarction; I13.2 Hypertensive heart and chronic kidney disease with heart failure and with stage 5 chronic kidney disease, or end stage renal disease; I50.20 Unspecified systolic (congestive) heart failure; I25.10 Atherosclerotic heart disease of native coronary artery without angina pectoris; E03.9 Hypothyroidism, unspecified; E78.5 Hyperlipidemia, unspecified; Z86.14 Personal history of Methicillin resistant Staphylococcus aureus infection; Z90.49 Acquired absence of other specified parts of digestive tract; Z79.82 Long term (current) use of aspirin; Z79.4 Long term (current) use of insulin; Z79.899 Other long term (current) drug therapy; I25.5 Ischemic cardiomyopathy; E11.40 Type 2 diabetes mellitus with diabetic neuropathy, unspecified
CPT/HCPCS: 36901; 36415; 80048; 82948; 85025; J2704; Q9967

== ENCOUNTER 2023-07-24 11:13 | Emergency (ER) | payer MEDICARE, SELFPAY ==
[2023-07-24 11:25] VITALS: BP 117/56; PULSE 50; TEMP 36.9; O2SAT 97; BMI 28.1
--- NOTE | 2023-07-24 12:07 | CT_ITS ---
[address] [address] Patient Name: SETH MURPHY MRN: [id number] date: 1955 Sex: M Assigned Patient Location: ER Current Patient Location: Accession/Order Number: [id number] Exam Date: 07/24/2023 12:43 Report Date: 07/24/2023 13:33 At the request of: MARCELA MARTINEZ Procedure: CT abdomen pelvis wo con EXAM: CT abdomen pelvis wo con; [id number] REASON FOR EXAM: lower abd pain TECHNIQUE: Helical CT images of the abdomen and pelvis were obtained without IV contrast. Multiplanar reformats were generated at the scanner. Dose reduction technique used: Automated exposure control and/or adjustment of the mA and/or kV according to patient size and/or use of iterative reconstruction technique. COMPARISON: None. FINDINGS: Note: Compared with a contrast-enhanced CT exam, noncontrast images are relatively insensitive for detection of solid organ and vascular abnormalities. Visualized Chest: Mild bibasilar atelectasis and/or scarring. Abdomen: Liver: Mild focal fatty infiltration along the gallbladder fossa. Gallbladder: Resected. Bile Ducts: No significant biliary ductal dilatation. Pancreas: No ductal dilatation or inflammatory changes. Spleen: Benign granulomatous calcifications are present. Adrenals: No nodules. Kidneys: -Bilateral renal vascular calcifications versus nonobstructing kidney stones. -Both kidneys are moderately atrophic. -Mild right periureteric fat stranding. -No hydronephrosis. Vascular: No aortic aneurysm. Lymph Nodes: Mild lower retroperitoneal and bilateral iliac chain adenopathy. Abdominal Wall: Small fat-containing bilateral inguinal hernias. Focal subcutaneous soft tissue thickening and increased attenuation in the right lower quadrant which could be from chronic subcutaneous injections. Moderate right gynecomastia mild left gynecomastia. Pelvis: Moderate circumferential wall thickening and moderate pericystic inflammation. Bowel/Peritoneal Cavity/Mesentery: -Mild colonic diverticulosis without evidence of acute diverticulitis. -No bowel obstruction or significant ileus. -No acute inflammatory changes. -No free air or free fluid. Musculoskeletal: Age-indeterminate moderate wedge deformity of T12. No suspicious osseous lesion. CT/CT abdomen pelvis wo con IMPRESSION: 1. In the setting of lower abdominal pain and difficulty urination, findings are compatible with moderate cystitis and ascending right-sided ureteritis. 2. Age-indeterminate moderate wedge compression fracture T12. Electronically authenticated by: MARIANO LANDEROS Date: 07/24/2023 13:33
--- NOTE | 2023-07-24 12:13 | ED_ITS ---
HPI - Abdominal Pain General Chief Complaint: Abdominal Pain Stated Complaint: UNABLE TO URINATE Time Seen by Provider: 07/24/23 11:21 Source: patient Mode of arrival: Wheelchair Limitations: no limitations History of Present Illness HPI narrative: Patient presents to ED complaining of lower abdominal pain. He states it is bladder pain. He states he is having pain and pressure down there. He does not make urine because he is on dialysis. He gets dialysis Saturday. The pains been worsening for the past week. Nausea no vomiting. He denies any back pain. No fevers. He was supposed to go to dialysis today but canceled because of the pain. He said pain is worse with palpation and movement. Slightly better with rest but he said it has been constant pain. No chest pain Related Data Home Medications ?Medication ?Instructions ?Recorded ?Confirmed acetaminophen 325 mg capsule 650 mg PO Q6H PRN pain 06/03/23 06/06/23 atorvastatin 40 mg tablet 40 mg PO DAILY 06/03/23 06/06/23 insulin lispro 100 unit/mL 60 unit subcut QPM 06/03/23 06/06/23 subcutaneous cartridge insulin regular human 100 unit/mL 1 sliding scale dose subcut 06/03/23 06/06/23 injection solution (Humulin R USEASDIRECTD Regular U-100 Insulin) levothyroxine 100 mcg capsule 100 mcg PO DAILY 06/03/23 06/06/23 liothyronine 5 mcg tablet 5 mcg PO DAILY 06/03/23 06/06/23 midodrine 5 mg tablet 5 mg PO QDAY 06/03/23 06/06/23 multivitamin (Daily Multi-Vitamin 1 tab PO DAILY 06/03/23 06/06/23 tablet) Previous Rx's ?Medication ?Instructions ?Recorded cephalexin 500 mg capsule 500 mg PO BID 7 days #14 caps 07/24/23 Allergies Allergy/AdvReac Type Severity Reaction Status Date / Time ticagrelor [From Brilinta] Allergy epistaxis Verified 06/03/23 08:21 coban Allergy Rash Uncoded 06/03/23 09:08 Review of Systems ROS Status of ROS 10 or more systems reviewed and unremark able except as noted in history and below [facility] Medical History (Updated 07/24/23 @ 14:41 by Mily Burnette DO) COVID ?U07.1 - COVID-19 (ICD-10) Family history of Guillain-Warren syndrome ?Z82.0 - Family history of epilepsy and other diseases of the nervous system (ICD-10) Septic arthritis ?M00.9 - Pyogenic arthritis, unspecified (ICD-10) Anemia of renal disease ?N18.9 - Chronic kidney disease, unspecified (ICD-10) ?D63.1 - Anemia in chronic kidney disease (ICD-10) Osteomyelitis ?M86.9 - Osteomyelitis, unspecified (ICD-10) Foot ulcer ?L97.509 - Non-pressure chronic ulcer of other part of unspecified foot with unspecified severity (ICD-10) Kidney stones ?N20.0 - Calculus of kidney (ICD-10) Myocardial infarction ?I21.9 - Acute myocardial infarction, unspecified (ICD-10) Postoperative nausea and vomiting ?R11.2 - Nausea with vomiting, unspecified (ICD-10) ?Z98.890 - Other specified postprocedural states (ICD-10) Arteriovenous fistula ?I77.0 - Arteriovenous fistula, acquired (ICD-10) Decubitus ulcer ?L89.90 - Pressure ulcer of unspecified site, unspecified stage (ICD-10) Hypothyroid ?E03.9 - Hypothyroidism, unspecified (ICD-10) Back pain ?M54.9 - Dorsalgia, unspecified (ICD-10) Deep vein thrombosis ?I82.409 - Acute embolism and thrombosis of unspecified deep veins of unspecified lower extremity (ICD-10) Varicose vein of leg ?I83.90 - Asymptomatic varicose veins of unspecified lower extremity (ICD-10) Asthma ?J45.909 - Unspecified asthma, uncomplicated (ICD-10) Atherosclerosis of coronary artery ?I25.10 - Atherosclerotic heart disease of chitina coronary artery without angina pectoris (ICD-10) Risk for falls ?Z91.81 - History of falling (ICD-10) Dialysis patient ?Z99.2 - Dependence on renal dialysis (ICD-10) Adult respiratory distress syndrome ?J80 - Acute respiratory distress syndrome (ICD-10) Chronic venous insufficiency ?I87.2 - Venous insufficiency (chronic) (peripheral) (ICD-10) Lower extremity edema ?R60.0 - Localized edema (ICD-10) Ventricular hypertrophy ?I51.7 - Cardiomegaly (ICD-10) Osteoarthritis ?M19.90 - Unspecified osteoarthritis, unspecified site (ICD-10) Cellulitis ?L03.90 - Cellulitis, unspecified (ICD-10) Vitamin D deficiency ?E55.9 - Vitamin D deficiency, unspecified (ICD-10) Muscle weakness ?M62.81 - Muscle weakness (generalized) (ICD-10) PVCs (premature ventricular contractions) ?I49.3 - Ventricular premature depolarization (ICD-10) Dyspnea ?R06.00 - Dyspnea, unspecified (ICD-10) Anemia ?D64.9 - Anemia, unspecified (ICD-10) Anticoagulated ?Z79.01 - intermediate accountant (current) use of anticoagulants (ICD-10) Hypertension ?I10 - Essential (primary) hypertension (ICD-10) Hyperlipidemia ?E78.5 - Hyperlipidemia, unspecified (ICD-10) Fatigue ?R53.83 - Other fatigue (ICD-10) Lack of coordination ?R27.9 - Unspecified lack of coordination (ICD-10) Palpitations ?R00.2 - Palpitations (ICD-10) End stage renal disease ?N18.6 - End stage renal disease (ICD-10) Diabetes ?E11.9 - Type 2 diabetes mellitus without complications (ICD-10) Diabetic neuropathy ?E11.40 - Type 2 diabetes mellitus with diabetic neuropathy, unspecified (ICD-10) Ischemic cardiomyopathy ?I25.5 - Ischemic cardiomyopathy (ICD-10) Surgical History (Updated 06/06/23 @ 11:33 by Rupinder Cash) History of tonsillectomy and adenoidectomy ?Z90.89 - Acquired absence of other organs (ICD-10) H/O varicose vein ligation and stripping ?Z98.890 - Other specified postprocedural states (ICD-10) H/O skin graft ?Z94.5 - Skin transplant status (ICD-10) S/P cataract extraction and insertion of intraocular lens ?Z98.49 - Cataract extraction status, unspecified eye (ICD-10) ?Z96.1 - Presence of intraocular lens (ICD-10) History of colonoscopy ?Z98.890 - Other specified postprocedural states (ICD-10) History of hernia repair ?Z98.890 - Other specified postprocedural states (ICD-10) ?Z87.19 - Personal history of other diseases of the digestive system (ICD-10) History of cholecystectomy ?Z90.49 - Acquired absence of other specified parts of digestive tract (ICD- 10) History of heart artery stent ?Z95.5 - Presence of coronary angioplasty implant and graft (ICD-10) History of cardiac catheterization ?Z98.890 - Other specified postprocedural states (ICD-10) Family History (Updated 06/03/23 @ 08:33 by Sarah Mata NP) Other Family history of coronary artery disease Family history of diabetes mellitus Family history of prostate cancer Social History (Updated 06/03/23 @ 08:27 by Sarah Mata NP) Within the past year, how often did you have a drink containing alcohol: never Score interpretation: A score less than 4 is consistent with normal alcohol consumption. Smoking status: Never smoker Non-prescribed substance use: denies use Highest level of school completed/degree received: Associate degree: occupational, technical, vocational program Exam Narrative Exam Narrative: Time Seen: [] Vital Signs: [Per nurse's notes.] General: [Alert] Skin: [Warm, dry, no rash.] Head: [Normocephalic, atraumatic.] Neck: [Supple, trachea midline.] Eye: [Pupils are equal, round and reactive to light, extraocular movements are intact, normal conjunctiva.] Ears, nose, mouth and throat: oral mucosa moist. Cardiovascular: [Regular rate and rhythm, no murmur.] Respiratory: [Lungs are clear to auscultation, respirations are non-labored, breath sounds are equal.] Chest wall: [No tenderness, no deformity.] Gastrointestinal: [Lower abdomen is soft but tender, guarding and rebound are present. Normal external genitalia Denies penile pain MSK: 5 out of 5 muscle strength x 4 extremities no calf pain or edema Lymphatics: [No lymphadenopathy.] Psychiatric: [Cooperative, appropriate mood & affect.] Neurological: [Alert and oriented to person, place, time, and situation, no focal neurological deficit observed.] Constitutional Vital Signs, click to edit/add: Last Vital Signs Temp 98.5 F 07/24/23 11:25 Pulse 50 L 07/24/23 11:25 Resp 18 07/24/23 11:25 BP 117/56 07/24/23 11:25 Pulse Ox 97 07/24/23 11:25 O2 Del Method Room Air 06/12/24 11:25 Course Vital Signs Vital signs: Vital Signs Temperature 98.5 F 07/24/23 11:25 Pulse Rate 50 L 07/24/23 11:25 Respiratory Rate 18 07/24/23 11:25 Blood Pressure 117/56 07/24/23 11:25 Pulse Oximetry 97 07/24/23 11:25 Oxygen Delivery Method Room Air 07/24/23 11:25 Temperature 98.5 F 07/24/23 11:25 Pulse Rate 50 L 07/24/23 11:25 Respiratory Rate 18 07/24/23 11:25 Blood Pressure 117/56 07/24/23 11:25 Pulse Oximetry 97 07/24/23 11:25 Oxygen Delivery Method Room Air 07/24/23 11:25 MDM - Abdominal Pain MDM Narrative Medical decision making narrative: Patient has some urinary bladder thickening and right ureteral thickening on the CT. This is consistent with most likely infection given his pain. No fever no vomiting no chills. Patient does have a slightly elevated white blood cell count, Lactate normal. Patient states his pain is feeling better with fluids and medication here. Patient was given IV antibiotics here in ED and will be sent home with p.o. antibiotics. He did miss his dialysis today but he has a normal potassium here. He states he can get in with [facility] tomorrow and he is calling now to make an appointment. Patient was instructed to return if fevers chills worsening pain vomiting or any further concerns. He is comfortable with care plan for home. Differential Diagnosis Differential diagnosis: Likely abdominal pain, calculus of kidney and other (UTI) Medical Records Attestation: I reviewed the patient's medical records. Lab Data Attestation: I reviewed the patient's lab results. Labs: Lab Results 07/24/23 Range/Units 12:38 WBC 14.4 H (4.0-11.0) 10^3/uL RBC 3.46 L (4.70-6.10) 10^6/uL Hgb 9.9 L (14.0-18.0) g/dL Hct 31.8 L (42.0-54.0) % MCV 91.9 (80.0-94.0) fL MCH 28.6 (25.9-34.0) pg MCHC 31.1 (29.9-35.2) g/dL RDW 16.9 H (11.0-15.0) % Plt Count 201 (150-450) 10^3/uL MPV 10.4 (9.5-13.5) fL Neut % (Auto) 82.2 H (43.0-75.0) % Lymph % (Auto) 6.0 L (20.5-60.0) % [place] % (Auto) 10.3 (1.7-12.0) % Eos % (Auto) 0.6 L (0.9-7.0) % Baso % (Auto) 0.3 (0.2-2.0) % Neut # (Auto) 11.9 H (1.4-6.5) 10^3/uL Lymph # (Auto) 0.9 L (1.2-3.8) 10^3/uL [place] # (Auto) 1.5 H (0.3-0.8) 10^3/uL Eos # (Auto) 0.1 (0.0-0.7) 10^3/uL Baso # (Auto) 0.0 (0.0-0.1) 10^3/uL Abs Immat Gran (auto) 0.09 H (0.00-0.03) 10^3/uL Imm/Tot Granulo (auto) 0.6 H (0.0-0.5) % Sodium 133 L (136-145) mmol/L Potassium 4.0 (3.5-5.1) mmol/L Chloride 95 L (98-107) mmol/L Carbon Dioxide 27.2 (21.0-32.0) mmol/L Anion Gap 14.8 BUN 36.0 H (7.0-18.0) mg/dL Creatinine 9.74 H* (0.70-1.30) mg/dL Est GFR ( Amer) 7 L (>=60) Est GFR (Non-Af Amer) 5 L (>=60) BUN/Creatinine Ratio 3.7 Glucose 114 H (74-106) mg/dL Lactate 1.2 (0.4-2.0) mmol/L Calcium 10.0 (8.5-10.1) mg/dL Total Bilirubin 1.1 H (0.2-1.0) mg/dL AST 13 L (15-37) U/L ALT 13 L (16-63) U/L Alkaline Phosphatase 77 (46-116) U/L Total Protein 8.4 H (6.4-8.2) g/dL Albumin 2.7 L (3.4-5.0) g/dL Globulin 5.7 g/dL Albumin/Globulin Ratio 0.[address] scan - abdomen: Radiologist's impression: ITS Impressions Abdomen/Pelvis CT 07/24/23 12:07 IMPRESSION: 1. In the setting of lower abdominal pain and difficulty urination, findings are compatible with moderate cystitis and ascending right-sided ureteritis. 2. Age-indeterminate moderate wedge compression fracture T12. Electronically authenticated by: MARIANO LANDEROS Date: 07/24/2023 13:33 Discharge Plan Discharge Stand Alone Forms: Portal Instructions Chief Complaint: Abdominal Pain Clinical Impression: Cystitis Patient Disposition: Home, Self-Care Time of Disposition Decision: 14:41 Condition: Fair Mode of Transportation: Private Vehicle Prescriptions / Home Meds: New cephalexin 500 mg capsule 500 mg PO BID 7 Days Qty: 14 0RF No Action acetaminophen 325 mg capsule 650 mg PO Q6H PRN (Reason: pain) atorvastatin 40 mg tablet 40 mg PO DAILY Humulin R Regular U-100 Insuln 100 unit/mL solution 1 sliding scale dose subcut USEASDIRECTD insulin lispro 100 unit/mL cartridge 60 unit subcut QPM levothyroxine 100 mcg capsule 100 mcg PO DAILY liothyronine 5 mcg tablet 5 mcg PO DAILY midodrine 5 mg tablet 5 mg PO QDAY Rx Instructions: On dialysis days multivitamin [Daily Multi-Vitamin] Tablet 1 tab PO DAILY Print Language: Urdu Instructions: Urinary Tract Infection in Men (ED) Referrals: Nav Tomlinson MD [Primary Care Provider] - 1 week
[2023-07-24 13:03] LABS: Basophils Percent Auto 0.3 % (0.2-2.0); Eosinophils Absolute Auto 0.1 10^3/uL (0.0-0.7); Eosinophils Percent Auto 0.6 % (0.9-7.0); Hematocrit 31.8 % (42.0-54.0); Hemoglobin 9.9 g/dL (14.0-18.0); Immature Granulocytes Abs Auto 0.09 10^3/uL (0.00-0.03); Immature Granulocytes Pct Auto 0.6 % (0.0-0.5); Lymphocytes Absolute Auto 0.9 10^3/uL (1.2-3.8); Mean Corpuscular HGB Conc 31.1 g/dL (29.9-35.2); Mean Corpuscular Hemoglobin 28.6 pg (25.9-34.0); Mean Corpuscular Volume 91.9 fL (80.0-94.0); Mean Platelet Volume 10.4 fL (9.5-13.5); Monocytes Absolute Auto 1.5 10^3/uL (0.3-0.8); Monocytes Percent Auto 10.3 % (1.7-12.0); Neutrophils Absolute Auto 11.9 10^3/uL (1.4-6.5); Neutrophils Percent Auto 82.2 % (43.0-75.0); Platelet Count 201 10^3/uL (150-450); Red Blood Count 3.46 10^6/uL (4.70-6.10); Red Cell Distribution Width 16.9 % (11.0-15.0); White Blood Count 14.4 10^3/uL (4.0-11.0)
[2023-07-24] MEDS: KETOROLAC TROMETHAMINE 30 MG/ML VIAL 15 MG IVP (13:11)
[2023-07-24] MEDS: 0.9 % SODIUM CHLORIDE 500 ML IV (13:11)
[2023-07-24 13:26] LABS: Lactate/Lactic Acid 1.2 mmol/L (0.4-2.0)
[2023-07-24 13:32] LABS: Alanine Aminotransferase 13 U/L (16-63); Albumin Globulin Ratio 0.5; Albumin Level 2.7 g/dL (3.4-5.0); Alkaline Phosphatase 77 U/L (46-116); Anion Gap 14.8; Aspartate Amino Transferase 13 U/L (15-37); BUN Creatinine Ratio 3.7; Bilirubin Total 1.1 mg/dL (0.2-1.0); Carbon Dioxide 27.2 mmol/L (21.0-32.0); Chloride 95 mmol/L (98-107); Estimated GFR (African America 7 (>=60); Estimated GFR (Non-African Ame 5 (>=60); Globulin 5.7 g/dL; Glucose 114 mg/dL (74-106); Sodium 133 mmol/L (136-145); Total Protein 8.4 g/dL (6.4-8.2)
[2023-07-24] MEDS: CEFTRIAXONE 1,000 MG in 0.9 % SODIUM CHLORIDE 50 ML 100 MG IV (14:27)
[2023-07-24 15:03] VITALS: BP 100/58; PULSE 82; O2SAT 99
== END 2023-07-24 15:30 | disposition home or self-care (01) ==
PROVIDERS: Emergency Provider Emergency Medicine; PCP Family Medicine
DX: N30.90 Cystitis, unspecified without hematuria (principal); Z99.2 Dependence on renal dialysis
CPT/HCPCS: 36415; 74176; 80053; 83605; 85025; 87040; 96365; 96375; 99285; J0696; J1885

== ENCOUNTER 2023-07-30 14:07 | Outpatient (OUT) | payer MEDICARE, SELFPAY | END 2023-07-30 14:08 | disposition home or self-care (01) | LOC: WC 14:07 | PROVIDERS: PCP Family Medicine; Visit Provider Podiatrist Foot & Ankle Surgery | DX: E11.621 Type 2 diabetes mellitus with foot ulcer (principal); L97.511 Non-pressure chronic ulcer of other part of right foot limited to breakdown of skin; L97.428 Non-pressure chronic ulcer of left heel and midfoot with other specified severity | CPT/HCPCS: 11042 ==

== ENCOUNTER 2023-08-20 15:43 | Outpatient (OUT) | payer MEDICARE, SELFPAY | END 2023-08-20 15:44 | disposition home or self-care (01) | LOC: WC 15:43 | PROVIDERS: PCP Family Medicine; Visit Provider Podiatrist Foot & Ankle Surgery | DX: E11.621 Type 2 diabetes mellitus with foot ulcer (principal); L97.511 Non-pressure chronic ulcer of other part of right foot limited to breakdown of skin; L97.428 Non-pressure chronic ulcer of left heel and midfoot with other specified severity | CPT/HCPCS: 11042 ==

== ENCOUNTER 2023-08-25 07:11 | Emergency (ER) | payer MEDICARE, SELFPAY ==
[2023-08-25] VITALS (47 sets, daily range): BP systolic 122–157; BP diastolic 48–77; PULSE 69–108; TEMP 36.7–38.7; O2SAT 90–99; BMI 27.1
--- NOTE | 2023-08-25 07:18 | ECG_ITS ---
The [facility] Test Date: 2023-08-25 Pat Name: SETH MURPHY Department: Room: - Gender: Male Certified Detention Deputy: : 1955 Requested By: VIOLETA ALEJO Order Number: [id number] Reading MD: VIOLETA ALEJO Measurements Intervals [place] Rate: 103 P: 0 [place]: 138 QRS: 21 QRSD: 96 T: 25 QT: 320 QTc: 379 Interpretive Statements 1120 Sinus tachycardia 4068 Nonspecific Twave abnormality 9140 abnormal rhythm ECG Compared to ECG 08/28/2021 17:36:17 Sinus rhythm no longer present Ventricular premature complex(es) no longer present Ventricular preexcitation no longer present Electronically Signed On 08-26-2023 5:30:44 EDT by VIOLETA ALEJO
[2023-08-25 07:20] LABS: Glucometer 473 mg/dL (74-106)
--- NOTE | 2023-08-25 07:20 | XR_ITS ---
The [address] [address] Patient Name: SETH MURPHY MRN: [id number] date: 1955 Sex: M Assigned Patient Location: ED.MAIN Current Patient Location: ER Accession/Order Number: [id number] Exam Date: 08/25/2023 07:35 Report Date: 08/25/2023 08:18 At the request of: ALVAREZ ROMERO Procedure: XR chest 1V PROCEDURE: XR chest 1V DATE: 08/25/2023 6:35 AM CDT COMPARISONS: 06/03/2023 CLINICAL INDICATION: 67 years Male fever, ams FINDINGS: The heart is enlarged and stable. The left hemidiaphragm is mild to moderately elevated, stable. There is some perihilar and infrahilar atelectasis, left greater than right, stable. There is no evidence of pleural effusion or pneumothorax. A vascular stent overlies the upper lateral left chest, stable XR/XR chest 1V IMPRESSION: Stable chest from 06/03/2023 No evidence of consolidating infiltrates to suggest pneumonia. Electronically authenticated by: ALF ISLAS Date: 08/25/2023 08:18
--- NOTE | 2023-08-25 07:21 | XR_ITS ---
The [address] [address] Patient Name: SETH MURPHY MRN: [id number] date: 1955 Sex: M Assigned Patient Location: ED.MAIN Current Patient Location: ED.MAIN Accession/Order Number: [id number] Exam Date: 08/25/2023 07:35 Report Date: 08/25/2023 08:30 At the request of: ALVAREZ ROMERO Procedure: XR foot RT min 3V EXAM: XR foot RT min 3V , 08/25/2023 HISTORY: osteomyelitis eval, wound over 1st MTP COMPARISON: Previous x-ray from 02/28/2023 TECHNIQUE: X-rays of the right foot, 3 views. FINDINGS: Lytic bone lesions seen at the first metatarsophalangeal joint, consistent with osteomyelitis. Mild soft tissue swelling. Extensive vascular arterial calcifications. Old fracture of the proximal phalanx of the third digit. XR/XR foot RT min 3V IMPRESSION: Finding consistent with osteomyelitis at the first metatarsophalangeal joint of the right foot. Electronically authenticated by: MAJOR DOUGLAS Date: 08/25/2023 08:30
--- NOTE | 2023-08-25 07:21 | CT_ITS ---
The [address] [address] Patient Name: SETH MURPHY MRN: [id number] date: 1955 Sex: M Assigned Patient Location: ER Current Patient Location: [facility] Accession/Order Number: [id number] Exam Date: 08/25/2023 08:05 Report Date: 08/25/2023 08:30 At the request of: ALVAREZ ROMERO Procedure: CT head/brain wo con EXAM: CT head/brain wo con, CT cervical spine wo con HISTORY: trauma, fall, weakness COMPARISON: MR cervical spine 02/09/2020 . TECHNIQUE: Axial noncontrast CT imaging of the head and cervical spine was performed with coronal and sagittal reformats. This CT exam was performed using one or more of the following dose reduction techniques: Automated exposure control, adjustment of the MA and/or kV according to patient size, or use of iterative reconstruction technique. FINDINGS: Motion artifact degrades evaluation. CT head Calvarium/skull base: No evidence of acute fracture or destructive lesion. Mastoids and middle ears demonstrate no substantial mucosal disease. Paranasal sinuses: No air fluid levels. Brain: No acute intracranial hemorrhage. No acute large vascular territory infarct. Remote left cerebellar steel analyst infarct. No mass lesion or mass effect. No hydrocephalus. CT cervical spine Alignment: No substantial subluxation. Vertebrae: Vertebral body heights are maintained. No fracture. Fusion of the left C2-C3 facet joints. Craniocervical junction: No focal abnormality. Degenerative changes: Mild degenerative changes of cervical spine with multilevel mild disc height loss, vacuum disc and small posterior disc osteophyte complexes and disc bulges. There is multilevel moderate canal stenosis greater at 4. Multilevel mild intervertebral moderate uncovertebral and facet arthropathy with multilevel mild to moderate foraminal stenosis. Additional Comments: Partially visualized left apical nodule measuring 9 mm, grossly stable from 2018 when allowing for differences in technique. Mild atherosclerotic change. CT/CT head/brain wo con IMPRESSION: 1. No acute intracranial process. 2. Remote left cerebellar steel analyst infarct. 3. No acute fracture or traumatic malalignment of the cervical spine. Electronically authenticated by: SOLANGE BILLY Date: 08/25/2023 08:30
--- NOTE | 2023-08-25 07:21 | CT_ITS ---
The [address] [address] Patient Name: SETH MURPHY MRN: [id number] date: 1955 Sex: M Assigned Patient Location: ER Current Patient Location: .[facility] Accession/Order Number: [id number] Exam Date: 08/25/2023 08:05 Report Date: 08/25/2023 08:30 At the request of: ALVAREZ ROMERO Procedure: CT cervical spine wo con EXAM: CT head/brain wo con, CT cervical spine wo con HISTORY: trauma, fall, weakness COMPARISON: MR cervical spine 02/09/2020 . TECHNIQUE: Axial noncontrast CT imaging of the head and cervical spine was performed with coronal and sagittal reformats. This CT exam was performed using one or more of the following dose reduction techniques: Automated exposure control, adjustment of the MA and/or kV according to patient size, or use of iterative reconstruction technique. FINDINGS: Motion artifact degrades evaluation. CT head Calvarium/skull base: No evidence of acute fracture or destructive lesion. Mastoids and middle ears demonstrate no substantial mucosal disease. Paranasal sinuses: No air fluid levels. Brain: No acute intracranial hemorrhage. No acute large vascular territory infarct. Remote left cerebellar pediatric cardiologist infarct. No mass lesion or mass effect. No hydrocephalus. CT cervical spine Alignment: No substantial subluxation. Vertebrae: Vertebral body heights are maintained. No fracture. Fusion of the left C2-C3 facet joints. Craniocervical junction: No focal abnormality. Degenerative changes: Mild degenerative changes of cervical spine with multilevel mild disc height loss, vacuum disc and small posterior disc osteophyte complexes and disc bulges. There is multilevel moderate canal stenosis greater at 4. Multilevel mild intervertebral moderate uncovertebral and facet arthropathy with multilevel mild to moderate foraminal stenosis. Additional Comments: Partially visualized left apical nodule measuring 9 mm, grossly stable from 2018 when allowing for differences in technique. Mild atherosclerotic change. CT/CT cervical spine wo con IMPRESSION: 1. No acute intracranial process. 2. Remote left cerebellar pediatric cardiologist infarct. 3. No acute fracture or traumatic malalignment of the cervical spine. Electronically authenticated by: SOLANGE BILLY Date: 08/25/2023 08:30
--- NOTE | 2023-08-25 07:26 | ED_ITS ---
HPI HPI - General Adult General Chief complaint: Weakness Stated complaint: FALL Time Seen by Provider: 08/25/23 07:15 Source: patient Mode of arrival: ambulance Limitations: no limitations History of Present Illness HPI narrative: 67-year-old male to the emergency department chief complaint of generalized weakness and altered mental status concern for night last night. reported to EMS that he fell 2 times. He seemed confused. This is not typical for him. He has a history of diabetes and end-stage renal disease on dialysis MW. 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 He has had fever and chills overnight. Denies any cough, congestion, sore throat. Denies any diarrhea or abdominal pain. He reports he is currently being managed for a wound on his foot. 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 Related Data Home Medications ?Medication ?Instructions ?Recorded ?Confirmed acetaminophen 325 mg capsule 650 mg PO Q6H PRN pain 06/03/23 06/06/23 atorvastatin 40 mg tablet 40 mg PO DAILY 06/03/23 06/06/23 insulin lispro 100 unit/mL 60 unit subcut QPM 06/03/23 06/06/23 subcutaneous cartridge insulin regular human 100 unit/mL 1 sliding scale dose subcut 06/03/23 06/06/23 injection solution (Humulin R USEASDIRECTD Regular U-100 Insulin) levothyroxine 100 mcg capsule 100 mcg PO DAILY 06/03/23 06/06/23 liothyronine 5 mcg tablet 5 mcg PO DAILY 06/03/23 06/06/23 midodrine 5 mg tablet 5 mg PO QDAY 06/03/23 06/06/23 multivitamin (Daily Multi-Vitamin 1 tab PO DAILY 06/03/23 06/06/23 tablet) Previous Rx's ?Medication ?Instructions ?Recorded cephalexin 500 mg capsule 500 mg PO BID 7 days #14 caps 07/24/23 Allergies Allergy/AdvReac Type Severity Reaction Status Date / Time ticagrelor [From Brilinta] Allergy epistaxis Verified 06/03/23 08:21 coban Allergy Rash Uncoded 06/03/23 09:08 Opioid HPI Opioid Management Most Recent Opioid Data: Last Pain Scale 2 07/24/23 14:00 Last MAR Pain Assessment 08/25/23 07:36 Review of Systems ROS Status of ROS 10 or more systems reviewed and unremark able except as noted in history and below [facility] Medical History (Updated 08/25/23 @ 07:31 by Reji Azar MD) COVID ?U07.1 - COVID-19 (ICD-10) Family history of Guillain-[place] syndrome ?Z82.0 - Family history of epilepsy and other diseases of the nervous system (ICD-10) Septic arthritis ?M00.9 - Pyogenic arthritis, unspecified (ICD-10) Anemia of renal disease ?N18.9 - Chronic kidney disease, unspecified (ICD-10) ?D63.1 - Anemia in chronic kidney disease (ICD-10) Osteomyelitis ?M86.9 - Osteomyelitis, unspecified (ICD-10) Foot ulcer ?L97.509 - Non-pressure chronic ulcer of other part of unspecified foot with unspecified severity (ICD-10) Kidney stones ?N20.0 - Calculus of kidney (ICD-10) Myocardial infarction ?I21.9 - Acute myocardial infarction, unspecified (ICD-10) Postoperative nausea and vomiting ?R11.2 - Nausea with vomiting, unspecified (ICD-10) ?Z98.890 - Other specified postprocedural states (ICD-10) Arteriovenous fistula ?I77.0 - Arteriovenous fistula, acquired (ICD-10) Decubitus ulcer ?L89.90 - Pressure ulcer of unspecified site, unspecified stage (ICD-10) Hypothyroid ?E03.9 - Hypothyroidism, unspecified (ICD-10) Back pain ?M54.9 - Dorsalgia, unspecified (ICD-10) Deep vein thrombosis ?I82.409 - Acute embolism and thrombosis of unspecified deep veins of unspecified lower extremity (ICD-10) Varicose vein of leg ?I83.90 - Asymptomatic varicose veins of unspecified lower extremity (ICD-10) Asthma ?J45.909 - Unspecified asthma, uncomplicated (ICD-10) Atherosclerosis of coronary artery ?I25.10 - Atherosclerotic heart disease of [place] coronary artery without angina pectoris (ICD-10) Risk for falls ?Z91.81 - History of falling (ICD-10) Dialysis patient ?Z99.2 - Dependence on renal dialysis (ICD-10) Adult respiratory distress syndrome ?J80 - Acute respiratory distress syndrome (ICD-10) Chronic venous insufficiency ?I87.2 - Venous insufficiency (chronic) (peripheral) (ICD-10) Lower extremity edema ?R60.0 - Localized edema (ICD-10) Ventricular hypertrophy ?I51.7 - Cardiomegaly (ICD-10) Osteoarthritis ?M19.90 - Unspecified osteoarthritis, unspecified site (ICD-10) Cellulitis ?L03.90 - Cellulitis, unspecified (ICD-10) Vitamin D deficiency ?E55.9 - Vitamin D deficiency, unspecified (ICD-10) Muscle weakness ?M62.81 - Muscle weakness (generalized) (ICD-10) PVCs (premature ventricular contractions) ?I49.3 - Ventricular premature depolarization (ICD-10) Dyspnea ?R06.00 - Dyspnea, unspecified (ICD-10) Anemia ?D64.9 - Anemia, unspecified (ICD-10) Anticoagulated ?Z79.01 - correction (current) use of anticoagulants (ICD-10) Hypertension ?I10 - Essential (primary) hypertension (ICD-10) Hyperlipidemia ?E78.5 - Hyperlipidemia, unspecified (ICD-10) Fatigue ?R53.83 - Other fatigue (ICD-10) Lack of coordination ?R27.9 - Unspecified lack of coordination (ICD-10) Palpitations ?R00.2 - Palpitations (ICD-10) End stage renal disease ?N18.6 - End stage renal disease (ICD-10) Diabetes ?E11.9 - Type 2 diabetes mellitus without complications (ICD-10) Diabetic neuropathy ?E11.40 - Type 2 diabetes mellitus with diabetic neuropathy, unspecified (ICD-10) Ischemic cardiomyopathy ?I25.5 - Ischemic cardiomyopathy (ICD-10) Surgical History (Updated 06/06/23 @ 11:33 by Rupinder Cash) History of tonsillectomy and adenoidectomy ?Z90.89 - Acquired absence of other organs (ICD-10) H/O varicose vein ligation and stripping ?Z98.890 - Other specified postprocedural states (ICD-10) H/O skin graft ?Z94.5 - Skin transplant status (ICD-10) S/P cataract extraction and insertion of intraocular lens ?Z98.49 - Cataract extraction status, unspecified eye (ICD-10) ?Z96.1 - Presence of intraocular lens (ICD-10) History of colonoscopy ?Z98.890 - Other specified postprocedural states (ICD-10) History of hernia repair ?Z98.890 - Other specified postprocedural states (ICD-10) ?Z87.19 - Personal history of other diseases of the digestive system (ICD-10) History of cholecystectomy ?Z90.49 - Acquired absence of other specified parts of digestive tract (ICD- 10) History of heart artery stent ?Z95.5 - Presence of coronary angioplasty implant and graft (ICD-10) History of cardiac catheterization ?Z98.890 - Other specified postprocedural states (ICD-10) Family History (Updated 06/03/23 @ 08:33 by Sarah Mata NP) Other Family history of coronary artery disease Family history of diabetes mellitus Family history of prostate cancer Social History (Updated 06/03/23 @ 08:27 by Sarah Mata NP) Within the past year, how often did you have a drink containing alcohol: never Score interpretation: A score less than 4 is consistent with normal alcohol consumption. Smoking status: Never smoker Non-prescribed substance use: denies use Highest level of school completed/degree received: Associate degree: occupational, technical, vocational program Exam Narrative Exam Narrative: VITALS: I have reviewed the triage vital signs. GENERAL: Adult male in no distress NEURO: Alert and oriented x3. Moves all extremities. Face is symmetric and expressive. EYES: PERRL. No scleral icterus or conjunctival injection. No discharge. HENT: Normocephalic, atraumatic. Hearing is grossly intact. Nares grossly patent and without discharge. Mucous membranes moist. NECK: No JVD. Patient moves neck without restriction. No midline c-spine tenderness. CARDIO: Rhythm regular. Normal rate. No murmur, rub, or gallop. Pulses equal bilaterally in the upper and lower extremity. No lower extremity edema. PULM: Lungs clear to auscultation in all sanders. No wheezes, rales, or rhonchi. No conversational dyspnea. No splinting, stridor, or accessory muscle use. GI/: Abdomen is soft and non-tender. Normoactive bowel sounds. EXTREMITIES: Symmetric muscle bulk. No joint swelling. No clubbing, cyanosis, or deformity. No amputations. There is a nickel sized ulcer over the first MTP on the right foot with foul odor and purulent drainage. There is some surrounding erythema. SKIN: Warm and dry. Normal turgor. No rash or lesions appreciated. PSYCH: Mood, affect, and interaction is appropriate to the setting. Constitutional Vital Signs, click to edit/add: Last Vital Signs Temp 98.3 F 08/25/23 10:31 Pulse 76 08/25/23 10:20 Resp 19 08/25/23 10:20 BP 145/54 H 08/25/23 10:00 Pulse Ox 96 08/25/23 10:20 O2 Del Method Room Air 08/25/23 08:01 O2 Flow Rate 2 08/25/23 08:01 Course Vital Signs Vital signs: Vital Signs Temperature 101.6 F H 08/25/23 07:13 Pulse Rate 102 H 08/25/23 07:13 Respiratory Rate 22 H 08/25/23 07:13 Blood Pressure 126/63 08/25/23 07:13 Pulse Oximetry 94 L 08/25/23 07:13 Oxygen Delivery Method Room Air 08/25/23 07:13 Temperature 98.3 F 08/25/23 10:31 Pulse Rate 76 08/25/23 10:20 Respiratory Rate 19 08/25/23 10:20 Blood Pressure 145/54 H 08/25/23 10:00 Pulse Oximetry 96 08/25/23 10:20 Oxygen Delivery Method Room Air 08/25/23 08:01 Oxygen Delivery Flow Rate 2 08/25/23 08:01 Medical Decision Making MDM Narrative Medical decision making narrative: 67-year-old male to the emergency department with chief complaint of generalized weakness, multiple falls, fever that began last night. Febrile tachycardic and tachypneic otherwise stable vitals. Septic workup is initiated. Will obtain CT head and cervical spine given his age and falls as he cannot be ruled out by clinical decision rules alone. X-ray of the foot. Patient agrees with this plan. CT head: Negative CT C-spine: Negative Chest x-ray: Negative Foot x-ray: First MTP osteomyelitis Renal function consistent with end-stage renal disease. No major electrolyte abnormality. His sodium corrected within the normal limits for his glucose. Blood glucose is significantly elevated, he is not acidotic, no DKA. Inflammatory markers are significantly elevated. Patient found to have osteomyelitis, hyperglycemia, sepsis. He was treated with vancomycin and Rocephin. Patient with severe sepsis. He is not in septic shock. There is no indication for the sepsis fluid bolus. Normal tissue perfusion exam. Appropriate antibiotics were initiated. No indication for vasopressors. Lactate and blood cultures ordered appropriately. Dialysis not available at this facility, [place] [facility] [place] Patient agrees with plan for transfer. Case discussed with Dr. Maravilla, [place] [facility] [place]. Medical Records Medical records reviewed: Yes I reviewed the patient's medical records Lab Data Lab results reviewed: Yes I reviewed the patient's lab results Labs: Lab Results 08/25/23 08/25/23 08/25/23 Range/Units 07:18 07:27 07:29 WBC 8.4 (4.0-11.0) 10^3/uL RBC 3.40 L (4.70-6.10) 10^6/uL Hgb 9.8 L (14.0-18.0) g/dL Hct 31.1 L (42.0-54.0) % MCV 91.5 (80.0-94.0) fL MCH 28.8 (25.9-34.0) pg MCHC 31.5 (29.9-35.2) g/dL RDW 16.1 H (11.0-15.0) % Plt Count 214 (150-450) 10^3/uL MPV 10.0 (9.5-13.5) fL Seg Neuts % (Manual) 89.0 Lymphocytes % (Manual) 4.0 L (20.5-60.0) % Monocytes % (Manual) 7.0 (1.7-12.0) % Eosinophils % (Manual) 0.0 L (0.9-7.0) % Basophils % (Manual) 0.0 L (0.2-2.0) % Neutrophils # (Manual) 7.47 H (1.4-6.5) 10^3/uL Lymphocytes # (Manual) 0.33 L (1.20-3.80) 10^3/uL Monocytes # (Manual) 0.58 (0.30-0.80) 10^3/uL Eosinophils # (Manual) 0.00 (0.00-0.70) 10^3/uL Basophils # (Manual) 0.00 (0.00-0.10) 10^3/uL ESR >130 H (<=20) mm/hr PT 11.4 (9.0-11.6) sec INR 1.08 APTT 27.4 (22.3-36.2) sec VBG pH (7.330-7.430) VBG pCO2 (40.0-52.0) mmHg Sodium 128 L (136-145) mmol/L Potassium 5.3 H (3.5-5.1) mmol/L Chloride 90 L (98-107) mmol/L Carbon Dioxide 24.3 (21.0-32.0) mmol/L Anion Gap 19.0 BUN 34.0 H (7.0-18.0) mg/dL Creatinine 8.56 H* (0.70-1.30) mg/dL Est GFR ( Amer) 8 L (>=60) Est GFR (Non-Af Amer) 6 L (>=60) BUN/Creatinine Ratio 4.0 Glucose 543 H* (74-106) mg/dL Lactate 2.2 H* (0.4-2.0) mmol/L Calcium 10.0 (8.5-10.1) mg/dL C-Reactive Protein 19.66 H (<=0.50) mg/dL SARS-CoV-2 Ag (CV2AG) Negative (NEGATIVE) POC Glucose 473 H (74-106) mg/dL 08/25/23 08/25/23 Range/Units 07:52 10:36 WBC (4.0-11.0) 10^3/uL RBC (4.70-6.10) 10^6/uL Hgb (14.0-18.0) g/dL Hct (42.0-54.0) % MCV (80.0-94.0) fL MCH (25.9-34.0) pg MCHC (29.9-35.2) g/dL RDW (11.0-15.0) % Plt Count (150-450) 10^3/uL MPV (9.5-13.5) fL Seg Neuts % (Manual) Lymphocytes % (Manual) (20.5-60.0) % Monocytes % (Manual) (1.7-12.0) % Eosinophils % (Manual) (0.9-7.0) % Basophils % (Manual) (0.2-2.0) % Neutrophils # (Manual) (1.4-6.5) 10^3/uL Lymphocytes # (Manual) (1.20-3.80) 10^3/uL Monocytes # (Manual) (0.30-0.80) 10^3/uL Eosinophils # (Manual) (0.00-0.70) 10^3/uL Basophils # (Manual) (0.00-0.10) 10^3/uL ESR (<=20) mm/hr PT (9.0-11.6) sec INR APTT (22.3-36.2) sec VBG pH 7.485 H (7.330-7.430) VBG pCO2 35.8 L (40.0-52.0) mmHg Sodium (136-145) mmol/L Potassium (3.5-5.1) mmol/L Chloride (98-107) mmol/L Carbon Dioxide (21.0-32.0) mmol/L Anion Gap BUN (7.0-18.0) mg/dL Creatinine (0.70-1.30) mg/dL Est GFR ( Amer) (>=60) Est GFR (Non-Af Amer) (>=60) BUN/Creatinine Ratio Glucose (74-106) mg/dL Lactate (0.4-2.0) mmol/L Calcium (8.5-10.1) mg/dL C-Reactive Protein (<=0.50) mg/dL SARS-CoV-2 Ag (CV2AG) (NEGATIVE) POC Glucose 449 H (74-106) mg/dL Imaging Data CT scan - head: Attestation: I have reviewed the pertinent imaging results. Radiologist's impression: ITS Impressions Chest X-Ray 08/25/23 07:20 IMPRESSION: Stable chest from 06/03/2023 No evidence of consolidating infiltrates to suggest pneumonia. Electronically authenticated by: ALF ISLAS Date: 08/25/2023 08:[address] 08/25/23 07:21 IMPRESSION: 1. No acute intracranial process. 2. Remote left cerebellar health record technician infarct. 3. No acute fracture or traumatic malalignment of the cervical spine. Electronically authenticated by: SOLANGE BILLY Date: 08/25/2023 08:30 Foot X-Ray 08/25/23 07:21 IMPRESSION: Finding consistent with osteomyelitis at the first metatarsophalangeal joint of the right foot. Electronically authenticated by: MAJOR DOUGLAS Date: 08/25/2023 08:[address] 08/25/23 07:21 IMPRESSION: 1. No acute intracranial process. 2. Remote left cerebellar health record technician infarct. 3. No acute fracture or traumatic malalignment of the cervical spine. Electronically authenticated by: SOLANGE BILLY Date: 08/25/2023 08:30 ECG Data Attestation: I personally reviewed and interpreted this ECG as follows: (Sinus Tachycardia @103. No STEMI. Normal QTC. ) Critical Care Time Critical Care Time Critical Care Time: Yes Total Critical Care Time: 35 Attestation: Critical Care Procedure Note Authorized and Performed by: Reji Azar DO Total critical care time: 35 min Due to a high probability of clinically significant, life threatening deterioration, the patient required my highest level of preparedness to intervene emergently and I personally spent this critical care time directly and personally managing the patient. This critical care time included obtaining a history; examining the patient; pulse oximetry; ordering and review of studies; arranging urgent treatment with development of a management plan; evaluation of patient's response to treatment; frequent reassessment; and, discussions with other providers. This critical care time was performed to assess and manage the high probability of imminent, life-threatening deterioration that could result in multi-organ failure. It was exclusive of separately billable procedures and treating other patients and teaching time. Please see MDM section and the rest of the note for further information on patient assessment and treatment. Discharge Plan Discharge Chief Complaint: Weakness Clinical Impression: Sepsis, Diabetic foot ulcer, Fall Patient Disposition: [facility] Time of Disposition Decision: 09:00 Discharge Location: [facility] Condition: Fair Mode of Transportation: EMS
[2023-08-25] MEDS: ACETAMINOPHEN 325 MG TABLET 650 MG PO (07:36)
[2023-08-25 07:44] LABS: Hematocrit 31.1 % (42.0-54.0); Hemoglobin 9.8 g/dL (14.0-18.0); Mean Corpuscular HGB Conc 31.5 g/dL (29.9-35.2); Mean Corpuscular Hemoglobin 28.8 pg (25.9-34.0); Mean Corpuscular Volume 91.5 fL (80.0-94.0); Platelet Count 214 10^3/uL (150-450); Red Cell Distribution Width 16.1 % (11.0-15.0); White Blood Count 8.4 10^3/uL (4.0-11.0)
[2023-08-25] MEDS: CEFTRIAXONE 1,000 MG in 0.9 % SODIUM CHLORIDE 50 ML 100 MG IV (07:50)
[2023-08-25 07:59] LABS: C Reactive Protein 19.66 mg/dL (<=0.50)
[2023-08-25 08:03] LABS: PCO2 VBG 35.8 mmHg (40.0-52.0); pH VBG 7.485 (7.330-7.430)
[2023-08-25 08:06] LABS: Internal Control Within Normal Limits; SARS-CoV-2 Ag NEGATIVE (NEGATIVE)
[2023-08-25 08:12] LABS: Carbon Dioxide 24.3 mmol/L (21.0-32.0); Chloride 90 mmol/L (98-107); Estimated GFR (African America 8 (>=60); Estimated GFR (Non-African Ame 6 (>=60); INR 1.08; Partial Thromboplastin Time 27.4 sec (22.3-36.2); Potassium 5.3 mmol/L (3.5-5.1); Prothrombin Time 11.4 sec (9.0-11.6); Sodium 128 mmol/L (136-145)
[2023-08-25 08:14] LABS: Erythrocyte Sedimentation Rate >130 mm/hr (<=20)
[2023-08-25 08:15] LABS: Glucose 543 mg/dL (74-106); Lactate/Lactic Acid 2.2 mmol/L (0.4-2.0)
[2023-08-25 08:19] LABS: Segmented Neut Absolute Manual 7.47 10^3/uL (1.4-6.5)
[2023-08-25 08:20] LABS: Lymphocytes Absolute Manual 0.33 10^3/uL (1.20-3.80); Monocytes Absolute Manual 0.58 10^3/uL (0.30-0.80)
[2023-08-25] MEDS: VANCOMYCIN HCL 1,000 MG in 0.9 % SODIUM CHLORIDE 250 ML 250 MG IV (08:34)
[2023-08-25] MEDS: INSULIN ASPART 300 UNIT/3 ML PEN 10 UNIT SUBQ (09:02)
[2023-08-25] MEDS: 0.9 % SODIUM CHLORIDE 1,000 ML 150 ML IV (09:03)
[2023-08-25 10:38] LABS: Glucometer 449 mg/dL (74-106)
[2023-08-25 14:08] LABS: Glucometer 414 mg/dL (74-106)
[2023-08-26 00:06] LABS: A. calcoaceticus-baumannii Cpx NOT DETECTED (NOT DETECTE); Bacteroides fragilis NOT DETECTED (NOT DETECTE); Candida albicans NOT DETECTED (NOT DETECTE); Candida auris NOT DETECTED (NOT DETECTE); Candida glabrata NOT DETECTED (NOT DETECTE); Candida krusei NOT DETECTED (NOT DETECTE); Candida parapsilosis NOT DETECTED (NOT DETECTE); Candida tropicalis NOT DETECTED (NOT DETECTE); Cryptococcus neoformans/gattii NOT DETECTED (NOT DETECTE); Enterobacter cloacae complex NOT DETECTED (NOT DETECTE); Enterobacterales NOT DETECTED (NOT DETECTE); Enterococcus faecalis NOT DETECTED (NOT DETECTE); Enterococcus faecium NOT DETECTED (NOT DETECTE); Haemophilus influenzae NOT DETECTED (NOT DETECTE); Klebsiella aerogenes NOT DETECTED (NOT DETECTE); Klebsiella pneumoniae group NOT DETECTED (NOT DETECTE); Listeria monocytogenes NOT DETECTED (NOT DETECTE); Neisseria meningitidis NOT DETECTED (NOT DETECTE); Proteus spp. NOT DETECTED (NOT DETECTE); Pseudomonas aeruginosa NOT DETECTED (NOT DETECTE); Salmonella spp. NOT DETECTED (NOT DETECTE); Serratia marcescens NOT DETECTED (NOT DETECTE); Staphylococcus epidermidis NOT DETECTED (NOT DETECTE); Staphylococcus lugdunensis NOT DETECTED (NOT DETECTE); Stenotrophomonas maltophilia NOT DETECTED (NOT DETECTE); Streptococcus agalactiae NOT DETECTED (NOT DETECTE); Streptococcus pneumoniae NOT DETECTED (NOT DETECTE); Streptococcus pyogenes NOT DETECTED (NOT DETECTE); Streptococcus spp. NOT DETECTED (NOT DETECTE)
[2023-08-26 02:09] LABS: Source BLOOD
[2023-08-26 02:10] LABS: Staphylococcus spp. DETECTED (NOT DETECTE); mecA/C and MREJ (MRSA) DETECTED (NOT DETECTE)
== END 2023-08-25 14:14 | disposition short-term general hospital (02) ==
PROVIDERS: Emergency Provider Student in an Organized Health Care Education/Training Program; PCP Family Medicine
DX: A41.9 Sepsis, unspecified organism (principal); E11.22 Type 2 diabetes mellitus with diabetic chronic kidney disease; N18.6 End stage renal disease; E11.621 Type 2 diabetes mellitus with foot ulcer; L97.519 Non-pressure chronic ulcer of other part of right foot with unspecified severity; E11.65 Type 2 diabetes mellitus with hyperglycemia; R65.20 Severe sepsis without septic shock; E11.69 Type 2 diabetes mellitus with other specified complication; M86.9 Osteomyelitis, unspecified; Z99.2 Dependence on renal dialysis; Z79.4 Long term (current) use of insulin; Z91.81 History of falling; Z20.822 Contact with and (suspected) exposure to COVID-19
CPT/HCPCS: 36415; 36416; 70450; 71045; 72125; 73630; 80048; 82800; 82948; 83605; 85007; 85027; 85610; 85652; 85730; 86140; 87040; 87150; 87811; 93005; 96361; 96365; 96367; 99285; J0696; J3370

== ENCOUNTER 2023-09-09 07:54 | Outpatient (REF) | payer MEDICARE, SELFPAY ==
--- OUTSIDE RECORDS SUMMARY | 2023-09-09 08:04 | XMS_ITS | CCD ---
Author Organization [facility] CliniSyil Care Team Providers Care 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 Name Role Phone NAV ALEJO Referring Unavailable NAV ALEJO Primary Care Unavailable Laly Amaro Attending Unavailable Laly Amaro Admitting Unavailable Nav Alejo Unavailable Unavailable Unavailable Nav Alejo Primary Care Physician [phone] PROVIDER, UNKNOWN Attending Unavailable PROVIDER, UNKNOWN Admitting Unavailable HOIsaias ., DR MCDANIEL Primary Care Unavailable LAUREN SCHWARZ Attending Unavailable LAUREN SCHWARZ Admitting Unavailable HIGHLANDERLAUREN Admitting Unavailable HIGHLANDERLAUREN Attending Unavailable HOY ., DR MCDANIEL Primary Care Unavailable MARANDA HUIZAR Attending Unavailable GAYE, MARANDA Admitting Unavailable HOY ., DR MCDANIEL Primary Care Unavailable LAUREN SCHWARZ Admitting Unavailable LAUREN SCHWARZ Attending Unavailable HOY ., DR MCDANIEL Primary Care Unavailable HOY ., DR MCDANIEL Primary Care Unavailable LAUREN SCHWARZ Admitting Unavailable LAUREN SCHWARZ Attending Unavailable HOY ., DR MCDANIEL Primary Care Unavailable LAUREN SCHWARZ Admitting Unavailable LAUREN SCHWARZ Attending Unavailable NATHEN LUCIA Consulting Unavailable GAYE, MARANDA Attending Unavailable HOY ., DR MCDANIEL Primary Care Unavailable GAYE, MARANDA Admitting Unavailable GAYE, MARANDA Consulting Unavailable HOY ., DR MCDANIEL Admitting Unavailable HOY ., DR MCDANIEL Attending Unavailable HOY ., DR MCDANIEL Consulting Unavailable HOY ., DR MCDANIEL Primary Care Unavailable HOY ., DR MCDANIEL Admitting Unavailable HOY ., DR MCDANIEL Attending Unavailable HOY ., DR MCDANIEL Consulting Unavailable HOY ., DR MCDANIEL Primary Care Unavailable GAYE, MARANDA Attending Unavailable GAYE, MARANDA Consulting Unavailable GAYE, MARANDA Admitting Unavailable HOY ., DR MCDANIEL Primary Care Unavailable NAKUL .NYLA Consulting Unavailabl e PAY ., DR VARGAS Attending Unavailable MEOL ., DR MCDANIEL Primary Care Unavailable PAY ., DR VARGAS Admitting Unavailable POLICVIRGILIO, CHRISTIANNE Consulting Unavailable Shereen Connolly Unavailable Unavailable Alfredo Acosta Unavailable Dr. Nav Alejo Primary Care Unavail able Stepan, Dr. Seth Roberts Attending Unava ilable Stepna, Dr. Seth Roberts Referring Unava ilable Melo, Dr. Nav Fuentes Primary Care Unavail able Nav Alejo MD Primary Care Provider [phone] SETH YING Attending Unavailable NAV ALEJO Primary Care Unavailable DEIDRE SANDERSON Attending Unavailable SFAELOS, DEIDRE Attending Unavailable SFAELOS DEIDRE Attending Unavailable DORIAN, LUISANAAMED Attending Unavailable DORIAN, MOHAMED Admitting Unavailable DORIAN, MOHAMED Attending Unavailable DORIAN, MOHAMED Admitting Unavailable DORIAN, MOHAMED Attending Unavailable DORIAN, MOHAMED Admitting Unavailable ROSANNE GAMEZ Attending Unavailable CLARISSEELARI DEIDRE Referring Unavailable ROSANNE GAMEZ Referring Unavailable MD Nav Alejo Primary Care Provider DO Ron Levi Emergency Provider [phone] DO Gabriel Gould Admit Provider MD Hilario Nunez Other Provider MD Guicho Chun Other Provider [phone] MD Alfredo Acosta Other Provider ISAIAH Win Other Provider MD Alon Santiago Attending Provider MARIANN Chatman Emergency Provider [phone] DO Gabriel Gould Attending Provider Luisana Alarconamed FElodia Admitting Unavailable Dorian, Mohamed F. Referring Unavailable Dorian, Mohamed FElodia Attending Unavailable Michael, Fuentes S Admitting Unavailable Chandrakant LEW Attending Unavailable Alfredo Acosta Consulting Unavailable Alfredo Acosta S Consulting Unavailable Alfredo Acosta S Consulting Unavailable Blank, Alfredo S Consulting [...] Cristino Consulting Unavailable Akkina, Cristino Consulting Unavailable Adam Weinberg Attending Unavailable Reji Azar Attending Unavailable Dorian, Mohamed F. Admitting Unavailable [...] Admitting Unavailable Dorian, Mohamed F. Referring Unavailable FELISA WIN Attending Unavailable FELISA WIN Attending Unavailable FELISA WIN Attending Unavailable ROMEO POP Attending Unavailable ROMEO POP Attending Unavailable MD Nav Alejo Primary Care Provider DO Gabriel Gould Admit Provider [phone] MD Alfredo Acosta Other Provider MD Marina Agudelo Other Provider ISAIAH Jackson Other Provider DO Diony eDvi Attending Provider MD Alon Santiago Admit Provider [phone] DEMETRIA Jansen Other Provider Unavailable MD Hilario Nunez Other Provider MD Benita Renteria Other Provider ISAIAH Pop Other Provider MD Clay Smith Attending Provider Clay Smith Attending Unavailable Alon Santiago Admitting Unavailable Alfredo Acosta Consulting Unavailable Nav Alejo Primary Care Unavailable Marina Agudelo Consulting Unavailable Christi Jansen Consulting Unavailable Shiv, Hilario Consulting Unavailable Benita Renteria Consulting Unavailable Romeo Pop Consulting Unavailable Alon Santiago Attending Unavailable Gabriel Gould Admitting Unavailable Shiv, Hilario Consulting Unavailable Nav Alejo Primary Care Unavailable Guicho Chun Consulting UnavailAlfredo Albarran Consulting Unavailable Felisa Win Consulting Unavailable Gabriel Gould Admitting Unavailable Diony Devi Attending UnavailAlfredo Albarran Consulting Unavailable Nav Alejo Primary Care Unavailable Elisis, Essam Consulting Unavailable Daniel Jackson Consulting Unavailable Unavailable Unavailable Unavailable Allergies Allergy Classification Reported Allergen(s) Allergy Type Date of Onset Reaction(s) Facility (9 sources) Ticagrelor; Translations: [ticagrelor] Drug Allergy 0 Headache, Nausea/vomitin g [facility] (16 sources) Ticagrelor; Translations: [ticagrelor] Drug Allergy 0 Unknown (qualifier value) [facility] Repository (5 sources) Ticagrelor; Translations: [Brilinta TABS] Drug Allergy Nausea, Headache, Other [facility] DO Work Phone: (13 sources) Coban Bandage; Translations: [Coban Bandage] Drug allergy Eruption of skin (disorder) [facility] (4 sources) Angiotensin Converting Enzyme (Gomez) Inhibitors; Translations: [GOMEZ Inhibitors] Allergy to drug (finding) 3 Hypotension [facility] 3 Repository (3 sources) Beta-Adrenergic Joi; Translations: [Beta Adrenergic Blockers] Allergy to drug (finding) Hypotension [facility] DO Work Phone: (3 sources) Bandages MISC; Translations: [Bandages MISC] Allergy to drug (finding) Rash -[facility] DO Work Phone: (1 source) Angiotensin-conve rting enzyme inhibitor agent Propensity to adverse reactions 3 Other [facility] Work Phone: (2 sources) Selective beta-2 adrenoceptor stimulants; Translations: [BETA-ADRENERGIC AGENTS] Propensity to adverse reactions 3 Other [facility] Work Phone: (1 source) OTHER; Translations: [OTHER] Propensity to adverse reactions (disorder) 3 [facility] Repository (3 sources) Chlorhexidine Drug Allergy 4 Unknown Reaction [facility] (3 sources) coban Allergy to substance 4 Unknown Reaction [facility] Medications Current Medications Medication Drug Class(es) Dates Sig (Normalized) Sig (Original) alteplase (1 source) Cathflo Activase 2 MG as directed Injection Active alteplase (Cathflo Activase) 1 mg/mL injection (1 source) alteplase (Cathflo Activase) 1 mg/mL injection 2 mL (2 mg) by intra-catheter route if needed. 0 Active amLODIPine 2.5 mg oral tablet (5 sources) Dihydropyridine Calcium Channel Joi Start: 09-02-2023 take 2.5 mg by mouth once daily Amlodipine Active 2.5 MG PO Daily September 02, 2023 12:00am Start: 10-07-2019 End: 04-09-2023 take 5 mg by mouth once daily Amlodipine Discontinued 5 MG PO Daily October 07, 2019 12:00am April 09, 2023 4:03pm apixaban 5 mg oral tablet (10 sources) Factor Xa Inhibitor Start: 09-02-2023 take 1 tablet by mouth twice daily Apixaban (Eliquis) 5 mg Tablet Active 5 MG PO Twice daily September 02, 2023 12:00am start 09/04/23 Start: 09-02-2023 take 2 tablets by mo [facility] twice daily Apixaban (Eliquis) 5 mg tablet Active 10 MG PO Twice daily 6 2 September 02, 2023 12:00am Start: 04-15-2018 End: 10-07-2019 take 1 tablet by mouth twice daily Apixaban (Eliquis) 5 mg tablet Discontinued 5 MG PO Twice daily May 14, 2018 12:00am October 07, 2019 3:15pm atorvastatin 40 mg oral tablet (20 sources) HMG-CoA Reductase Inhibitor Start: 04-17-2018 End: 01-31-2023 take 40 mg by mouth once daily in the evening Atorvastatin Active 40 MG PO Every evening 0 April 17, 2018 1:00am calcium carbonate 1500 mg oral tablet (7 sources) Start: 04-09-2023 take 750 mg by mouth three times daily at mealtime Calcium Carbonate Active 750 MG PO Three times daily April 09, 2023 1:00am WITH MEALS Start: 04-09-2023 take 600 mg by mouth three times daily at mealtime Calcium Carbonate Active 600 MG PO Three times daily April 09, 2023 1:00am WITH MEALS calcium carbonat e EX (Tums Extra Strength) 300 mg (750 mg) chewable tablet Chew 2 tablets (1,500 mg) 3 times a day. 0 Active Tums E-X 750 750 MG Oral Tablet Chewable TAKE DIRECTED. Quantity: 0 Refills: 0 Ordered: 11-Jan-2022 DO Active cefepime 1000 mg injection (1 source) Cephalosporin Antibacterial Start: 08-30-2023 take 1 g intravenously every twenty-four hours Cefepime Active 1 GM IV Q24H 40 40 August 30, 2023 12:00am Celebrate Multivitamin (12 sources) Start: 05-12-2020 Celebrate Multivitamin See Instructions, Refill(s) 0 Start Date: 05/12/20 Status: Ordered cephalexin 500 mg oral capsule (3 sources) Cephalosporin Antibacterial Start: 07-09-2022 take 1 capsule by mouth every twelve hours Keflex 500 mg Cap 500 mg = 1 cap(s), Oral, q12hr, # 20 cap(s), Refills(s) 0, Pharmacy: [facility]/pharmacy #[id number], 178, cm, 07/09/22 17:32:00 EDT, Height/Length Dosing, 92, kg, 07/09/22 17:32:00 EDT, Weight Dosing Start Date: 07/09/22 Status: Ordered 1 ml darbepoetin thomas 0.06 mg/ml injection (10 sources) Erythropoiesis-sti mulating Agent Start: 09-02-2023 Darbepoetin Thomas In Polysorbat (Aranesp (In Polysorbate)) 60 mcg/mL Solution Active 60 MCG IV-PUSH We@1000 0 September 02, 2023 12:00am Start: 03-15-2022 Aranesp 25 mcg /0.42 mL Injection Refills(s) 0 Start Date: 03/15/22 Status: Ordered Aranesp (Albumin Free) 25 MCG/ML 1 mL Injection Active Aranesp (Albumin Free) 25 MCG/0.42ML Injection Solution Prefilled Syringe every other week for dialysis Quantity: 0 Refills: 0 Ordered: 13-Jul-2021 DO Active fluticasone (1 source) Corticosteroid Start: 12-08-2018 FreeStyle Bre 14 Day [place] - (1 source) Start: 04-15-2018 Freestyle Bre [...] ml insulin glargine 100 unt/ml pen injector (6 sources) Insulin Analog Start: 09-02-2023 Insulin Glargi ne (Lantus Solostar U-100 Insulin) 100 unit/mL (3 mL) Insulin Pen Active 45 UNIT SUBCUT Daily at bedtime September 02, 2023 12:00am Start: 04-15-2018 End: 04-09-2023 inject 43 [IU] by subcutaneous injection twice daily Insulin Glargine Discontinued 43 UNITS SUBCUT Twice daily April 15, 2018 1:00am April 09, 2023 4:03pm Insulin Isophane Human (1 source) Insulin Isophane Human Active insulin lispro 100 unt/ml injectable solution (8 sources) Insulin Analog Start: 07-19-2022 insulin lispro 100 units/mL injectable solution 0-10 Units, SubCutaneous, QIDACHS, Refills(s) 0 Start Date: 07/19/22 Status: Ordered Start: 04-15-2018 Insulin Lispro Active 0 .ROUTE .COMPLEX April 15, 2018 12:11pm 1:4 CARB RATIO & 1:12 MG SCALE BEFORE MEALS - USE AT BEDTIME IF GREATER THAN 200 -EXPECT 70U PER DAY Start: 04-15-2018 Insulin Lispro Active 0 .ROUTE .COMPLEX April 15, 2018 1:00am ACHS SLINDING SCALE Insulin Lispro A ctive insulin lispro 100 [...] 0 Refills: 0 Ordered: 11-Jan-2022 DO Active lidocaine 25 mg/ml / prilocaine 25 mg/ml topical cream (1 source) Antiarrhythmic, Amide Local Anesthetic lidocaine-prilocaine (Emla) 2.5-2.5 % cream Apply topically 1 time. As directed 0 Active liothyronine sodium 0.005 mg oral tablet (4 sources) l-Triiodothyronine Start: 2023 take 5 ug by mouth once daily in the morning Liothyronine Active 5 MCG PO Every morning April 09, 2023 1:00am Start: 11-07-2022 liothyronine ( Cytomel) 5 mcg tablet 1 tablet (5 mcg) once daily. 0 11/07/2022 Active 24 hr metoprolol succinate 25 mg extended release oral tablet (1 source) beta-Adrenergic Joi Start: 09-02-2023 take 25 mg by mouth once daily Metoprolol Succinate Active 25 MG PO Daily September 02, 2023 12:00am Midodrine (20 sources) alpha-Adrenergic Agonist Start: 08-16-2023 take 1 tablet by mouth once as needed Midodrine Active 0 .ROUTE .COMPLEX August 16, 2023 1:49pm TAKE 1 TAB BY MOUTH EVERY SATURDAY,SATURDAY ,AND SATURDAY BEFORE DIALYSIS NEEDED Start: 07-30-2023 End: 08-16-2023 take 5 mg by mouth three times weekly Midodrine Discontinued 5 MG PO 3 Times a week 40 90 July 30, 2023 10:24pm August 16, 2023 1:49pm Start: 04-09-2023 End: 07-30-2023 take 1-2 tablets by mouth once Midodrine Discontinued 10 MG PO .COMPLEX April 09, 2023 1:00am July 30, 2023 10:24pm 10 mg orally 1-2 tabs depending on BP; PRE OR MID DIALYSIS IF HR OKAY Start: 12-03-2022 midodrine (Pro amatine) 10 mg tablet TAKE 1 TABLET BY [...] tablet by mouth once daily. 0 Active Lclwajlhvyjp-Kkey-Ybtww Acid (Centrum Complete) 18-400 mg-mcg tablet (3 sources) Start : 04-09 take 1 tablet by mouth once daily Ndznfvvijoob-Qfnd-Cyibb Acid (Centrum Complete) 18-400 mg-mcg tablet Active 1 TAB PO Daily April 09, 2023 1:00am Multivitamin/Minerals 27-1 M G (1 source) Multivitamin/Min erals 27-1 MG as directed Orally Active 1 ml paricalcitol 0.005 mg/m l injection (5 sources) Vitamin D3 Analog Start : 09-01 Paricalcitol (Zemplar) 5 mcg/mL Solution Active 7 MCG IV-PUSH MoWeFr@1000 0 September 02, 2023 12:00am paricalcitoL (Ze mplar) 2 mcg/mL injection Infuse 3.5 mL (7 mcg) into a venous catheter 3 (three) times a week. 0 Active take 7 ug intravenously three ti mes weekly Zemplar 2 MCG/ML Intravenous Solution 7 micrograms 3 times weekly. Quantity: 0 Refills: 0 Ordered: 11-Jan-2022 DO Active Potassium gluconate (1 source) take 1 tablet by mouth once daily Vancomycin (5 sources) Glycopeptide Antibacterial Start: 07-20-19 take 1 dose intravenously once daily vancomycin PHARMACY TO DOSE, IV, As Directed, IV vanco 500mg on 07/20. Doses to be given on HD days at HD center. Rx. to dose prior to each dose given. IV vanco x 4 wks - first dose given on 07/12/22., Refills(s) 0 Start Date: 07/19/22 Status: Ordered Vancomycin HCl N ot-Taking Vancomycin In 0.9 % Sodium Chl (1 source) Start: 08-30-2023 Vancomycin In 0.9 % Sodium Chl Active 0 .ROUTE .COMPLEX August 30, 2023 12:00am 750 mg intravenously to be given on HD days after dialysis for 6 weeks. PHARMACY TO MANAGE VITAMIN B COMPLEX ORAL (1 source) take 1 tablet by mouth once daily VITAMIN B COMPLEX ORAL Take 1 tablet by mouth once daily. 0 Active Vitamin B Complex oral capsule (12 sources) Start: 07-09-2019 take 1 capsule by [...] Sig (Original) acetaminophen 325 mg oral tablet (14 sources) Start: 04-09-2023 End: 08-25-2023 take 2 tablets by mouth every six hours as needed Acetaminophen Discontinued 650 MG PO Every 6 hours April 09, 2023 1:00am August 25, 2023 3:07pm FreeTextSi tablet as needed Orally every 6 hrs; Note: Source Status: Taking; Provider: Karla Fuentes ( ) Start: 07-19-2022 acetaminophen 325 mg Tab 650 mg = 2 tab(s), Oral, q6hr, PRN Pain, not to exceed 4000 mg/day, Refills(s) 0 Start Date: 07/19/22 Status: Ordered take 325-650 mg by m outh every six hours acetaminophen (Tylenol) 325 mg tablet Take 1-2 tablets (325-650 mg) by mouth every 6 hours. 0 Active acetaminophen 325 mg / oxyCODONE hydrochloride 5 mg oral tablet (4 sources) Opioid Agonist Start: 04-09-2023 End: 08-25-2023 take 1 tablet by mouth every six hours Oxycodone-Acetaminophen (Percocet) 5-325 mg tablet Discontinued 1 TAB PO Every 6 hours April 09, 2023 1:00am August 25, 2023 3:09pm take 1 tablet by jus every six hours as needed oxyCODONE-acetaminophen (Percocet) 5-325 mg tablet Take 1 tablet by mouth every 6 hours if needed for severe pain (7 - 10). 0 Active Albuterol (4 sources) beta2-Adrenergic Agonist Start: 04-15-2018 End: 10-07-2019 take 90 ug by inhalation every four hours Albuterol Sulfate Discontinued 90 MCG INHALATION Every 4 hours April 15, 2018 12:11pm October 07, 2019 2:15pm Start: 04-15-2018 End: 10-07-2019 take 90 ug by inhalation every four hours Albuterol Sulfate Discontinued 90 MCG INHALATION Every 4 hours April 15, 2018 1:00am October 07, 2019 3:15pm amoxicillin 500 mg / clavulanate 125 mg oral tablet (1 source) Penicillin-class Antibacterial Start: 06-26-2023 End: 08-25-2023 take 1 tablet by mouth twice daily Amoxicillin-Pot Clavulanate Discontinued 1 TAB PO Twice daily June 26, 2023 12:00am August 25, 2023 3:07pm aspirin 81 mg delayed release oral tablet (20 sources) Platelet Aggregation Inhibitor, Nonsteroidal Anti-inflammatory Drug Start: 04-10-2023 End: 04-13-2023 take 81 mg by mouth once daily Aspirin Discontinued 81 MG PO Daily April 10, 2023 1:00am April 13, 2023 12:48pm Start: 08-15-2022 take 1 tablet by jus th once daily Aspirin 81 MG Oral Tablet Delayed Release TAKE 1 TABLET DAILY. Quantity: 90 Refills: 3 Ordered: 16-Aug-2022 Seth Ying DO Start : 15-Aug-2022 Active Start: 04-15-2018 End: 05-09-2023 take 81 mg by mouth once daily Aspirin Discontinued 81 MG PO Daily April 15, 2018 1:00am May 09, 2023 1:11pm carvedilol 6.25 mg oral tablet (5 sources) alpha-Adrenergic Joi, beta-Adrenergic Joi Start: 04-15-2018 End: 10-07-2019 take 6.25 mg by mouth twice daily Carvedilol Discontinued 6.25 MG PO Twice daily April 15, 2018 1:00am October 07, 2019 3:16pm take 1 tablet by mouth every twe nty-four hours cefTRIAXone 2000 mg injection (3 sources) Cephalosporin Antibacterial Start: 04-12-2023 End: 06-21-2023 take 2 g intravenously once daily Ceftriaxone Discontinued 2 GM IV Daily 40 April 12, 2023 1:00am June 21, 2023 6:28pm CRP Weekly cobamamide 0.1 mg / vitamin b12 5 mg sublingual tablet (4 sources) Vitamin B12 Start: 04-15-2018 End: 10-07-2019 take 12-5000 tablets under the tongue once daily Cyanocobalamin-C obamamide (B-12 Plus) 5,000-100 mcg Tablet, Sublingual Discontinued 1500 MCG SUBLINGUAL Daily April 15, 2018 1:00am October 07, 2019 3:16pm doxazosin 1 mg oral tablet (19 sources) alpha-Adrenergic Joi Start: 07-09-2019 End: 04-09-2023 take 1 mg by mouth once daily Doxazosin Discontinued 1 MG PO Daily October 07, 2019 12:00am April 09, 2023 4:03pm EMLA CREA (3 sources) EMLA CREA apply 1 hour before dialysis- 3 days weekly Quantity: 0 Refills: 0 Ordered: 11-Jan-2022 DO Active ferrous sulfate 325 mg oral tablet (5 sources) Start: 04-15-2018 End: 10-07-2019 take 1 tablet by mouth once daily Ferrous Sulfate (Iron) 325 mg (65 mg iron) Tablet Discontinued 325 MG PO Daily April 15, 2018 1:00am October 07, 2019 3:16pm glucose 0.4 mg/mg oral gel (3 sources) Start: 04-09-2023 End: 09-02-2023 Dextrose Discontinued 25 GM PO Q15M April 09, 2023 1:00am September 02, 2023 3:56pm until symptoms of low blood sugar are controlled heparin flush 100 units/mL Soln 5 mL (4 sources) Start: 07-19-2022 take 5 mL intravenously every twenty-four hours heparin flush 100 units/mL Soln 5 mL 100 unit(s), IV, q24hr, Follow [facility] PICC line flushing policy, # 3 EA, Refills(s) 0 Start Date: 07/19/22 Status: Ordered hydrALAZINE hydrochloride 50 mg oral tablet (13 sources) Arteriolar Vasodilator Start: 10-07-2019 End: 04-09-2023 take 50 mg by mouth three times daily Hydralazine Discontinued 50 MG PO Three times daily October 07, 2019 12:00am April 09, 2023 4:03pm Start: 07-09-2019 take 1 tablet by jus th every eight hours hydrALAZINE 50 mg Tab 50 mg = 1 tab(s), Oral, q8hr, Refills(s) 0, High blood pressure Start Date: 07/09/19 Status: Ordered Insulin Nph And Regular Human (20 sources) Insulin Start: 04-09-2023 End: 09-02-2023 Insulin Nph And Regular Penelope n (Humulin 70/30 U-100 Kwikpen) 100 unit/mL (70-30) insulin pen Discontinued 60 UNIT SUBCUT Daily at bedtime April 09, 2023 1:00am September 02, 2023 3:56pm Start: 04-09-2023 Insulin Nph An d Regular Human (Humulin 70/30 U-100 Kwikpen) 100 unit/mL (70-30) insulin pen Active 60 UNIT SUBCUT Daily at bedtime April 09, 2023 1:00am Start: 07-19-2022 insulin isopha ne-insulin regular 14 [...] Blood glucose Start Date: 03/25/20 Status: Ordered labetalol hydrochloride 100 mg oral tablet (4 sources) beta-Adrenergic Joi Start: 10-07-2019 End: 04-09-2023 take 100 mg by mouth twice daily Labetalol Discontinued 100 MG PO Twice daily October 07, 2019 12:00am April 09, 2023 4:03pm levothyroxine sodium 0.1 mg oral tablet (20 sources) l-Thyroxine Start: 08-30-2021 take 1 tablet by mouth once daily [...] 100 MCG PO Daily April 15, 2018 1:00am take 1 tablet by jus th once daily in the morning linezolid 600 mg oral tablet (1 source) Oxazolidinone Antibacterial Start: 06-26-2023 End: 08-25-2023 take 600 mg by mouth twice daily Linezolid Discontinued 600 MG PO Twice daily June 26, 2023 12:00am August 25, 2023 3:09pm lisinopril 5 mg oral tablet (9 sources) Angiotensin Converting Enzyme Inhibitor Start: 04-17-2018 End: 05-14-2018 take 10 mg by mouth once daily Lisinopril Discontinued 10 MG PO Daily April 17, 2018 4:37pm May 14, 2018 3:16pm Start: 04-15-2018 End: 04-17-2018 take 5 mg by mouth once daily Lisinopril Discontinued 5 MG PO Daily April 15, 2018 1:00am April 17, 2018 4:38pm polyethylene glycol 3350 34807 mg powder for oral solution (19 sources) Osmotic Laxative Start: 04-09-2023 End: 09-02-2023 Polyethylene Glycol 3350 (Miralax) 17 gram powder in packet Discontinued 17 GM PO Daily April 09, 2023 1:00am September 02, 2023 3:56pm Start: 07-09-2019 polyethylene g lycol 3350 17 gram, Oral, Daily Constipation, Refill(s) 0, Constipation Start Date: 07/09/19 Status: Ordered take 17 g by mouth once daily po lyethylene glycol (Glycolax, Miralax) packet Take 17 g by mouth once daily. As directed 0 Active prasugrel 10 mg oral tablet (5 sources) P2Y12 Platelet Inhibitor Start: 05-14-2018 End: 10-07-2019 take 1 tablet by mouth once daily Prasugrel (Effient) 10 mg Tablet Discontinued 10 MG PO Daily May 14, 2018 12:00am October 07, 2019 3:16pm silver sulfADIAZINE 10 mg/ml topical cream (1 [...] 04-Jan-2021 Complete ticagrelor 90 mg oral tablet (4 sources) Start: 04-17-2018 End: 05-14-2018 take 1 tablet by mouth twice daily Ticagrelor (Brilinta) 90 mg Tablet Discontinued 90 MG PO Twice daily 180 90 April 17, 2018 1:00am May 14, 2018 3:15pm Vitamin B Complex (3 sources) Start: 04-09-2023 End: 06-21-2023 take 1 tablet by mouth once daily Vitamin B Complex Discontinued 1 TAB PO Daily April 09, 2023 1:00am June 21, 2023 10:36pm Start: 04-09-2023 take 1 tablet by mouth once da daiana Vitamin B Complex Active 1 TAB PO Daily April 09, 2023 1:00am Problems Active Problems Problem Classification Problem Date Documented Date Episodic/Chronic Acute myocardial infarction (16 sources) Myocardial infarction in recovery phase; Translations: [Acute non-ST segment elevation myocardial infarction] Onset: 9 07-09-2019 Chronic Administrative/social admission (8 sources) Reduced mobility; Translations: [Patient encounter status] 04-10-2023 Episodic Asthma (1 source) Unspecified asthma, uncomplicated; Translations: [UNSPECIFIED ASTHMA UNCOMPLICATED] Onset: 2 Chronic Bacterial infection; unspecified site (9 sources) Bacteremia; Translations: [Methicillin resistant Staphylococcus aureus infection as the cause of diseases classified elsewhere] Onset: 4 Episodic Cardiac dysrhythmias (9 sources) Ventricular premature beats; Translations: [Other premature beats] Onset: 3 12-03-2022 Chronic Cataract (12 sources) Pseudophakia Onset: 9 07-09-2019 Chronic Chronic kidney disease (20 sources) Chronic kidney disease; Translations: [End stage renal failure on dialysis] Onset: 2 Chronic Chronic ulcer of skin (20 sources) Pressure ulcer stage 2; Translations: [Non-pressure chronic ulcer of right heel and midfoot limited to breakdown of skin] Onset: 3 04-24-2023 Chronic Congestive heart failure; nonhypertensive (20 sources) Acute systolic heart failure; Translations: [Left ventricular cardiac dysfunction] Onset: 9 07-09-2019 Chronic Coronary atherosclerosis and other heart disease (20 sources) Coronary arteriosclerosis; Translations: [Coronary atherosclerosis of unspecified type of vessel, [place] or graft] Onset: 9 07-09-2019 Chronic Coronary atherosclerosis and other heart disease (6 sources) Patient post percutaneous transluminal coronary angioplasty; Translations: [Percutaneous transluminal coronary angioplasty status] Onset: 3 01-31-2023 Episodic Deficiency and other anemia (1 source) Anemia in chronic kidney disease; Translations: [Anemia in chronic kidney disease] Onset: 4 Chronic Deficiency and other anemia (19 sources) Anemia; Translations: [Anemia, unspecified] Onset: 9 07-30-2019 Episodic Deficiency and other anemia (2 sources) Anemia, unspecified; Translations: [Anemia, unspecified] Onset: 4 09-02-2023 Episodic Diabetes mellitus with complications (20 sources) [...] [Unspecified essential hypertension] Onset: 9 07-09-2019 Chronic Fever of unknown origin (3 sources) Fever; Translations: [Fever, unspecified] Onset: 4 08-26-2023 Episodic Hypertension with complications and secondary hypertension (11 sources) Hypertensive chronic kidney disease with stage 5 chronic kidney disease or end stage renal disease; Translations: [Hypertensive renal disease] Onset: 2 04-24-2023 Chronic Infective arthritis and osteomyelitis (except that caused by tuberculosis or sexually transmitted disease) (17 sources) Acute osteomyelitis of left foot; Translations: [Other acute osteomyelitis, left ankle and foot] Onset: 4 04-24-2023 Chronic Nutritional deficiencies (1 source) Vitamin D deficiency; Translations: [Vitamin D deficiency, unspecified] Chronic Other aftercare (1 source) Surgical follow-up; Translations: [Encounter for other specified surgical aftercare] Onset: 3 Episodic Other aftercare (1 source) Long-term current use of insulin; Translations: [buttermaker (current) use of insulin] Episodic Other aftercare (3 sources) Drug therapy finding; Translations: [MCC (current) use of antibiotics] 05-09-2023 Episodic Other aftercare (3 sources) MCC (current) use of antibiotics; Translations: [Long-term (current) use of antibiotics] Onset: 4 05-09-2023 Episodic Other and ill-defined heart disease (12 sources) Left ventricular hypertrophy Onset: 9 07-09-2019 Chronic Other and ill-defined heart disease (3 sources) Left ventricular cardiac dysfunction; Translations: [Heart disease, unspecified] 04-10-2023 Chronic Other circulatory disease (2 sources) Arteriovenous fistula, acquired; Translations: [Arteriovenous fistula, acquired] Onset: 3 Chronic Other diseases of kidney and ureters (3 sources) Secondary hyperparathyroidism; Translations: [Secondary hyperparathyroidism of renal origin] 04-24-2023 Chronic Other diseases of kidney and ureters (5 sources) Secondary hyperparathyroidism of renal origin; Translations: [Secondary hyperparathyroidism (of renal origin)] Onset: 4 04-16-2023 Chronic Other injuries and conditions due to external causes (3 sources) Local infection of wound; Translations: [Other injury of unspecified body region, initial encounter] 04-24-2023 Episodic Other injuries and conditions due to external causes (2 sources) Other injury of unspecified body region, initial encounter; Translations: [Posttraumatic wound infection not elsewhere classified] 04-16-2023 Episodic Other nervous system disorders (2 sources) Other acute postprocedural pain; Translations: [Other acute postprocedural pain] Onset: 3 Episodic Other nutritional; endocrine; and metabolic disorders (11 sources) Obesity; Translations: [Obesity, unspecified] 04-24-2023 Chronic Other nutritional; endocrine; and metabolic disorders (4 sources) Obesity, unspecified; Translations: [Obesity, unspecified] Onset: 3 04-16-2023 Chronic Other nutritional; endocrine; and metabolic disorders (1 source) Body mass index 40+ - severely obese; Translations: [Body mass index (BMI) 40.0-44.9, adult] Chronic Other nutritional; endocrine; and metabolic disorders (1 source) Severe obesity; Translations: [Morbid (severe) obesity due to excess calories] Chronic Other nutritional; endocrine; and metabolic disorders (3 sources) Obese class II; Translations: [Body mass index (BMI) 39.0-39.9, adult] Chronic Other skin disorders (5 sources) Corns and callosities; Translations: [CORNS AND CALLOSITIES] Onset: 3 Episodic Other skin disorders (6 sources) Impaired skin integrity 07-12-2022 Episodic Comment on above: Problem added on doc umentation of skin impairments. Other skin disorders (1 source) Gustatory sweating; Translations: [Primary focal hyperhidrosis, unspecified] Episodic Peripheral and visceral atherosclerosis (7 sources) Peripheral vascular disease, unspecified; Translations: [Bilateral lower limb atherosclerosis pain at rest co-occurrent and due to atherosclerosis] Onset: 3 Chronic Phlebitis; thrombophlebitis and thromboembolism (20 sources) H/O: Deep vein thrombosis; Translations: [Personal history of venous thrombosis and embolism] Onset: 9 07-09-2019 Episodic Residual codes; unclassified (12 sources) Sleep apnea 08-06-2019 Chronic Residual codes; [...] specified health status] Onset: 3 01-31-2023 Episodic Septicemia (except in labor) (6 sources) Septic shock; Translations: [Sepsis, unspecified organism] Onset: 4 08-27-2023 Episodic Shock (1 source) Severe sepsis with septic shock; Translations: [Severe sepsis with septic shock] Onset: 4 Episodic Skin and subcutaneous tissue infections (15 sources) Cellulitis, unspecified; Translations: [Cellulitis of left foot] Onset: 2 Episodic Thyroid disorders (7 sources) Hypothyroidism 07-02-2022 Chronic Unclassified (1 source) Finding of activity of daily living; Translations: [Requires assistance with activities of daily living (ADL)] Unclassified (2 sources) CONTACT W/AND (SUSP) EXPOS COVID-19; Translations: [CONTACT W/AND (SUSP) EXPOS COVID-19] Onset: 3 Viral infection (1 source) COVID-19; Translations: [COVID-19] Onset: 3 Past or Other Problems Problem Classification Problem Date Documented Date Episodic/Chronic Cardiac dysrhythmias (15 sources) Palpitations; Translations: [Bradycardia, unspecified] Onset: 05-06-2018 07-30-2019 Episodic Complication of device; implant or graft (2 sources) Infection and inflammatory reaction due to other cardiac and vascular devices, implants and grafts, subsequent encounter; Translations: [Infection and inflammatory reaction due to other cardiac and vascular devices, implants and grafts, initial encounter] Onset: 07-12-2022 Episodic Fluid and electrolyte disorders (6 sources) Hyperkalemia; Translations: [Hyperkalemia] Onset: 04-09-2023 04-24-2023 Episodic Genitourinary symptoms and ill-defined conditions (13 sources) Dysuria; Translations: [Albuminuria ] Onset: 05-06-2018 07-09-2019 Episodic Heart valve disorders (1 source) Other abnormalities of heart beat; Translations: [OTHER ABNORMALITIES OF HEART BEAT] Onset: 08-29-2021 Episodic Infective arthritis and osteomyelitis (except that caused by tuberculosis or sexually transmitted disease) (8 sources) Infective arthritis of left foot; Translations: [Pyogenic arthritis, unspecified] Onset: 04-09-2023 04-24-2023 Episodic Malaise and fatigue (12 sources) Fatigue Onset: 05-06-2018 07-09-2019 Episodic Other aftercare (1 source) buttermaker (current) use of insulin; Translations: [COMMUNICATION SKILLS INSTRUCTOR CURRENT USE OF INSULIN] Onset: 08-29-2021 Episodic Other aftercare (1 source) Other intermodal dispatcher (current) drug therapy; Translations: [OTH COMMUNICATION SKILLS INSTRUCTOR CURRENT DRUG THERAPY] Onset: 08-29-2021 Episodic Other aftercare (1 source) MCC (current) use of aspirin; Translations: [SHELTER CURRENT USE OF ASPIRIN] Onset: 08-29-2021 Episodic [...] Episodic Other diseases of veins and lymphatics (12 sources) Venous insufficiency of leg Onset: 05-06-2018 07-09-2019 Episodic Other lower respiratory disease (12 sources) Dyspnea Onset: 05-06-2018 07-09-2019 Episodic Other lower respiratory disease (1 source) Personal history of pneumonia (recurrent); Translations: [PERSONAL HX OF PNEUMONIA RECURRENT] Onset: 08-29-2021 Episodic Other screening for suspected conditions (not mental disorders or infectious disease) (17 sources) Electrocardiogram abnormal; Translations: [Culture positive for methicillin resistant Staphylococcus aureus] Onset: 05-06-2018 07-09-2019 Episodic Comment on above: MRSA in lt arm wound 07/12/2022 Residual codes; unclassified (12 sources) Edema of lower extremity Onset: 05-06-2018 [...] 05-09-2022 Unclassified (1 source) Onset: 01-31-2023 01-31-2023 Varicose veins of lower extremity (19 sources) Venous varices; Translations: [Asymptomatic varicose veins] Onset: 05-06-2018 07-09-2019 Episodic Comment on above: Varicose veins; Results Test Name Value Interpretation Reference Range Facility Albumin [Mass/volume] in Ser um or Plasma by Bromocresol green (BCG) dye binding methoOrdered By: Hilario Nunez on 09-02-2023 Albumin BCG dye [Mass/Vol] 2.9 g/dL Low 3.5-5.7 [facility] Calcium [Mass/volume] in Ser um or PlasmaOrdered By: Hilario Nunez on 09-02-2023 Calcium [Mass/Vol] 9.5 mg/dL Normal 8.6-10.3 [facility] Comment on above: Performed By: #### R ENAL, CBCNO ####[facility] [id number] [place] [id number] [facility] Capillary blood glucose mike urement by glucometer (mass/volume)Ordered By: Clay Smith on 09-02-2023 Glucose [Mass/Vol] 122 mg/dL Normal [facility] Comment on above: Random Glucose Refer ence Range is dependent on time and content of last meal. Glucose of more than 200 mg/dL in a nonstressed, ambulatory subject supports the diagnosis of Diabetes Mellitus. Result Comment: [facility] Glucose Reference Range is dependent on time and content of last meal. Glucose of more than 200 mg/dL in a nonstressed, ambulatory subject supports the diagnosis of Diabetes Mellitus. Performed By: #### G DARLENE ####Point of Care testing, Carbon dioxide, total [Moles /volume] in Serum or PlasmaOrdered By: Hilario Nunez on 09-02-2023 CO2 [Moles/Vol] 24.3 mmol/L Normal 21.0-31.0 [facility] Comment on above: Performed By: #### REBECCA PRUITT ####[address] Chloride [Moles/volume] in S bushra or PlasmaOrdered By: Hilario Nunez on 09-02-2023 Chloride [Moles/Vol] 97 mmol/L Low 98-107 [facility] Comment on above: Performed By: #### REBECCA PRUITT ####[place] [id number] [facility] Creatinine [Mass/volume] in Serum or PlasmaOrdered By: Hilario Nunez on 09-02-2023 Creatinine [Mass/Vol] 8.73 mg/dL Significan t change up 0.70-1.30 [facility] Comment on above: Delta: 6.97 on 08/31 Performed By: #### REBECCA PRUITT ####[place] [id number] [facility] Erythrocyte distribution wid th [Ratio] by Automated countOrdered By: Hilario Nunez on 09-02-2023 Erythrocyte distribution width (RBC) [Ratio] 18.4 % High 12.0-14.8 [facility] Comment on above: Performed By: #### REBECCA PRUITT ####[place] [id number] [facility] Erythrocytes [#/volume] in B lood by Automated countOrdered By: Hilario Nunez on 09-02-2023 RBC (Bld) [#/Vol] 3.29 10*6/uL Low 3.90-5.60 [facility] Comment on above: Performed By: #### R RAVEN SALGUERONO ####[facility] [place] [address] [facility] Glucose Poct Glucometerson 0 09-02-2023 Commemt1 Glu2: Cleaned Meter Normal [facility] Comment on above: Result Comment: PERF ORMED BY:[address] [address] [place], [place] [phone] MEDICAL DIRECTORDEAN MCWILLIAMS M.D. Performed By: #### G LULS ####Point of Care testing, Commemt1 Glu2: Cleaned Meter Normal [facility] Comment on above: Result Comment: PERF ORMED BY:[address] [place], [place] [phone] MEDICAL DIRECTORDEAN MCWILLIAMS M.D. Performed By: #### G LULS ####Point of Care testing, Glucose [Mass/Vol] 135 mg/dL Normal [facility] Comment on above: Result Comment: [place] [facility] Glucose Reference Range is dependent on time and content of last meal. Glucose of more than 200 mg/dL in a nonstressed, ambulatory subject supports the diagnosis of Diabetes Mellitus. Performed By: #### G LULS ####Point of Care testing, Glucose [Mass/volume] in Ser um or PlasmaOrdered By: Hilario Nunez on 09-02-2023 Glucose [Mass/Vol] 128 mg/dL High 70-100 [facility] Comment on above: ADA recommended refe rence rangeRandom Glucose Reference Range is dependent on time and content of last meal. Glucose of more than 200 mg/dL in a nonstressed, ambulatory subject supports the diagnosis of Diabetes Mellitus. Result Comment: [place] [facility] Glucose Reference Range is dependent on time and content of last meal. Glucose of more than 200 mg/dL in a nonstressed, ambulatory subject supports the diagnosis of Diabetes Mellitus. ADA recommended reference range Performed By: #### R ENAL CBCNO ####[facility] [place], [place] [address] [place] [address] Hematocrit [Volume Fraction] of Blood by Automated countOrdered By: Hilario Nunez on 09-02-2023 Hematocrit (Bld) [Volume fraction] 29.0 % Low 38.8-50.0 [facility] Comment on above: Performed By: #### Eri SALGUERO CBCNO ####[address] Hemoglobin [Mass/volume] in BloodOrdered By: Hilario Nunez on 09-02-2023 Hemoglobin (Bld) [Mass/Vol] 9.3 g/dL Low 13.0-17.0 [facility] Comment on above: Performed By: #### REBECCA PRUITT ####[address] Hemogram CBC Without Diffon 09-02-2023 Mean Corpuscular HGB Conc 32.2 g/dL Low 32.5-35.6 [facility] Comment on above: Performed By: #### REBECCA PRUITT ####[address] WBC (Bld) [#/Vol] 8.2 10*3/uL Normal 4.1-10.5 [facility] Comment on above: Performed By: #### RAVEN PRUITTNO ####[address] Leukocytes [#/volume] correc jennifer for nucleated erythrocytes in Blood by Automated counOrdered By: Hilario Nunez on 09-02-2023 WBC corrected for nucl RBC Auto (Bld) [#/Vol] 8.2 10*3/uL 4.1-10.5 [facility] MCH [Entitic mass] by Automa jennifer countOrdered By: Hilario Nunez on 09-02-2023 MCH (RBC) [Entitic mass] 28.4 pg Normal 27.5-35.2 [facility] Comment on above: Performed By: #### Eri SALGUERO CBCNO ####[address] MCHC Auto (RBC) [Mass/Vol]Or dered By: Hilario Nunez on 09-02-2023 MCHC (RBC) [Mass/Vol] 32.2 g/dL Low 32.5-35.6 [facility] MCV [Entitic volume] by Auto mated countOrdered By: Hilario Nunez on 09-02-2023 MCV (RBC) [Entitic vol] 88.0 fL Normal 83.5-101 [facility] Comment on above: Performed By: #### R REBECCA SALGUERO ####[facility] No Panel InformationOrdered By: Clay Smith on 09-02-2023 Bedside Glucose Comment Glu2: cleaned meter [facility] No Panel InformationOrdered By: Hilario Nunez on 09-02-2023 Estimated GFR (CKD-EPI) 6.126 mL/Min [facility] Creatinine Clearance (Chem 9.90 [facility] Phosphate [Mass/volume] in S bushra or PlasmaOrdered By: Hilario Nunez on 09-02-2023 Phosphate [Mass/Vol] 5.3 mg/dL High 2.5-4.5 [facility] Comment on above: Performed By: #### REBECCA PRUITT ####[place] [id number] Platelet mean volume [Entiti c volume] in Blood by Automated countOrdered By: Hilario Nunez on 09-02-2023 Platelet mean volume (Bld) [Entitic vol] 7.5 fL Normal 6.6-10.1 [facility] Comment on above: Result Comment: PERF ORMED BY:[address] [place], [place] [id number] MEDICAL DIRECTORDEAN MCWILLIAMS M.D. Performed By: #### REBECCA PRUITT ####[place] [address] Platelets [#/volume] in Bloo d by Automated countOrdered By: Hilario Nunez on 09-02-2023 Platelets (Bld) [#/Vol] 343 10*3/uL Normal 150-450 [facility] Comment on above: Performed By: #### REBECCA PRUITT ####[address] [place] [address] [facility] Potassium [Moles/volume] in Serum or PlasmaOrdered By: Hilario Nunez on 09-02-2023 Potassium [Moles/Vol] 4.9 mmol/L Normal 3.5-5.1 [facility] Comment on above: Performed By: #### REBECCA PRUITT ####[address] [address] [facility] Renal Function Panelon 09-01 Albumin [Mass/Vol] 2.9 g/dL Low 3.5-5.7 [facility] Comment on above: Performed By: #### REBECCA PRUITT ####[address] [address] [facility] Creatinine Clr Calc Pharmacy 9.90 Normal [facility] Comment on above: Result Comment: PERF ORMED BY:[address] [place], [place] [phone] MEDICAL DIRECTORDEAN MCWILLIAMS M.D. Performed By: #### REBECCA PRUITT ####[address] [address] [facility] GFR/1.73 sq M.predicted MDRD (S/P/Bld) [Vol rate/Area] 6.126 mL/min/{1.73_m2} Normal [facility] Comment on above: Performed By: #### REBECCA PRUITT ####[address] [address] [facility] Serum or plasma anion gap de terminationOrdered By: Hilario Nunez on 09-02-2023 Anion gap [Moles/Vol] 14.6 mmol/L Normal 6.0-15.0 [facility] Comment on above: Performed By: #### REBECCA PRUITT ####[address] [address] [facility] Sodium [Moles/volume] in Ser um or PlasmaOrdered By: Hilario Nunez on 09-02-2023 Sodium [Moles/Vol] 131 mmol/L Low 136-145 [facility] Comment on above: Performed By: #### R RAVEN SALGUERONO ####[address] [place] [address] [facility] Urea nitrogen [Mass/volume] in Serum or PlasmaOrdered By: Hilario Nunez on 09-02-2023 Urea nitrogen [Mass/Vol] 32 mg/dL High 7-25 [facility] Comment on above: Performed By: #### R JOSE M CBCNO ####[place] [id number] [facility] Anisocytosis [Presence] in B lood by Light microscopyOrdered By: Denice Dahl on 09-01-2023 Anisocytosis Ql (Bld) Moderate Normal [facility] Comment on above: Performed By: #### B MP, DIFF CBC ####[place] [id number] [facility] Basic Metabolic Panelon 08-12 Anion gap [Moles/Vol] 12.4 mmol/L Normal 6.0-15.0 [facility] Comment on above: Performed By: #### B MP, DIFF CBC ####[place] [id number] [facility] Calcium [Mass/Vol] 9.7 mg/dL Normal 8.6-10.3 [facility] Comment on above: Performed By: #### B MP, DIFF CBC ####[place] [id number] [facility] Chloride [Moles/Vol] 98 mmol/L Normal 98-107 [facility] Comment on above: Performed By: #### B MP, DIFF CBC ####[address] [address] [facility] CO2 [Moles/Vol] 28.1 mmol/L Normal 21.0-31.0 [facility] Comment on above: Performed By: #### B MP, DIFF CBC ####[address] [place] [address] [facility] Creatinine [Mass/Vol] 6.97 mg/dL High 0.70-1.30 [facility] Comment on above: Performed By: #### B MP, DIFF CBC ####[place] [id number] [facility] Creatinine Clr Calc Pharmacy 12.26 Normal [facility] Comment on above: Result Comment: PERF ORMED BY:[address] [place], [place] [phone] MEDICAL JAKE MCWILLIAMS M.D. Performed By: #### B MP, DIFF CBC ####[address] GFR/1.73 sq M.predicted MDRD (S/P/Bld) [Vol rate/Area] 8.027 mL/min/{1.73_m2} Normal [facility] Comment on above: Performed By: #### B MP, DIFF CBC ####[address] Glucose [Mass/Vol] 105 mg/dL Significant change up 70-100 [facility] Comment on above: Result Comment: [facility] Glucose Reference Range is dependent on time and content of last meal. Glucose of more than 200 mg/dL in a nonstressed, ambulatory subject supports the diagnosis of Diabetes Mellitus. ADA recommended reference range Performed By: #### B MP, DIFF CBC ####[place] [id number] [facility] Potassium [Moles/Vol] 4.5 mmol/L Normal 3.5-5.1 [facility] Comment on above: Performed By: #### B MP, DIFF CBC ####[place] [id number] [facility] Sodium [Moles/Vol] 134 mmol/L Low 136-145 [facility] Comment on above: Performed By: #### B MP, DIFF CBC ####[place] [id number] [facility] Urea nitrogen [Mass/Vol] 24 mg/dL Normal 7-25 [facility] Comment on above: Performed By: #### B MP, DIFF CBC ####[address] Basophils Auto (Bld) [#/Vol] Ordered By: Denice Dahl on 09-01-2023 Basophils (Bld) [#/Vol] N/A [facility] Basophils/100 WBC Auto (Bld) Ordered By: Denice Dahl on 09-01-2023 Basophils/100 WBC (Bld) N/A [facility] Basophils/100 leukocytes in Blood by Manual countOrdered By: Denice Dahl on 09-01-2023 Basophils/100 WBC (Bld) 1 % Normal 0-2 [facility] Comment on above: Performed By: #### B MP, DIFF CBC ####[address] Diff and CBCon 09-01-2023 Erythrocyte distribution width (RBC) [Ratio] 18.4 % High 12.0-14.8 [facility] Comment on above: Performed By: #### B MP, DIFF CBC ####[address] Hematocrit (Bld) [Volume fraction] 26.7 % Low 38.8-50.0 [facility] Comment on above: Performed By: #### B MP, DIFF CBC ####[address] Hemoglobin (Bld) [Mass/Vol] 8.9 g/dL Low 13.0-17.0 [facility] Comment on above: Performed By: #### B MP, DIFF CBC ####[address] MCH (RBC) [Entitic mass] 29.1 pg Normal 27.5-35.2 [facility] Comment on above: Performed By: #### B MP, DIFF CBC ####[address] MCV (RBC) [Entitic vol] 87.3 fL Normal 83.5-101 [facility] Comment on above: Performed By: #### B MP, DIFF CBC ####[place] [id number] [facility] Mean Corpuscular HGB Conc 33.4 g/dL Normal 32.5-35.6 [facility] Comment on above: Performed By: #### B MP, DIFF CBC ####[place] [id number] [facility] Metamyelocytes 1 % High 0-0 [facility] Comment on above: Performed By: #### B MP, DIFF CBC ####[place] [id number] [facility] Platelet Estimate Normal Normal Normal [facility] Comment on above: Performed By: #### B MP, DIFF CBC ####[place] [id number] [facility] Platelet mean volume (Bld) [Entitic vol] 7.8 fL Normal 6.6-10.1 [facility] Comment on above: Performed By: #### B MP, DIFF CBC ####[place] [id number] [facility] Platelet Morphology Normal Normal Normal [facility] Comment on above: Result Comment: PERF ORMED BY:[address] [place], [place] [id number] MEDICAL JAKE MCWILLIAMS M.D. Performed By: #### B MP, DIFF CBC ####[place] [id number] [facility] Platelets (Bld) [#/Vol] 337 10*3/uL Normal 150-450 [facility] Comment on above: Performed By: #### B MP, DIFF CBC ####[place] [id number] [facility] Polychromasia Slight Normal [facility] Comment on above: Performed By: #### B MP, DIFF CBC ####[place] [id number] [facility] RBC (Bld) [#/Vol] 3.06 10*6/uL Low 3.90-5.60 [facility] Comment on above: Performed By: #### B MP, DIFF CBC ####[address] [place] [address] [place] Eosinophils Auto (Bld) [#/Vo l]Ordered By: Denice Dahl on 09-01-2023 Eosinophils (Bld) [#/Vol] N/A [facility] Eosinophils/100 WBC Auto (Bl d)Ordered By: Denice Dahl on 09-01-2023 Eosinophils/100 WBC (Bld) N/A [facility] Eosinophils/100 leukocytes i n Blood by Manual countOrdered By: Denice Bienvenidobenson on 09-01-2023 Eosinophils/100 WBC (Bld) 3 % Normal 1-3 [facility] Comment on above: Performed By: #### B MP, DIFF CBC ####[address] [place] [address] [facility] Glucose Poct Glucometerson 0 09-01-2023 Glucose [Mass/Vol] 376 mg/dL Normal [facility] Comment on above: Result Comment: [facility] Glucose Reference Range is dependent on time and content of last meal. Glucose of more than 200 mg/dL in a nonstressed, ambulatory subject supports the diagnosis of Diabetes Mellitus.PERFORMED BY:[address] [place], [place] [phone] MEDICAL DIRECTORDEAN MCWILLIAMS M.D. Performed By: #### G LULS ####Point of Care testing, Glucose [Mass/Vol] 262 mg/dL Normal [facility] Comment on above: Result Comment: [facility] Glucose Reference Range is dependent on time and content of last meal. Glucose of more than 200 mg/dL in a nonstressed, ambulatory subject supports the diagnosis of Diabetes Mellitus.PERFORMED BY:[address] [place], [place] [phone] MEDICAL JAKE MCWILLIAMS M.D. Performed By: #### G LULS ####Point of Care testing, Glucose [Mass/Vol] 255 mg/dL Normal [facility] Comment on above: Result Comment: [facility] Glucose Reference Range is dependent on time and content of last meal. Glucose of more than 200 mg/dL in a nonstressed, ambulatory subject supports the diagnosis of Diabetes Mellitus.PERFORMED BY:[address] [place], [place] [phone] MEDICAL DIRECTORDEAN MCWILLIAMS M.D. Performed By: #### G LULS ####Point of Care testing, Glucose [Mass/Vol] 88 mg/dL Normal [facility] Comment on above: Result Comment: [facility] Glucose Reference Range is dependent on time and content of last meal. Glucose of more than 200 mg/dL in a nonstressed, ambulatory subject supports the diagnosis of Diabetes Mellitus.PERFORMED BY:[address] [place], [place] [phone] MEDICAL DIRECTORDEAN MCWILLIAMS M.D. Performed By: #### G LULS ####Point of Care testing, Leukocytes [#/volume] in Blo od by Automated countOrdered By: Denice Dahl on 09-01-2023 WBC (Bld) [#/Vol] 8.9 10*3/uL Normal 4.1-10.5 [facility] Comment on above: Performed By: #### B MP, DIFF CBC ####[facility] [id number] [id number] [facility] Lymphocytes Auto (Bld) [#/Vo l]Ordered By: Denice Dahl on 09-01-2023 Lymphocytes (Bld) [#/Vol] N/A [facility] Lymphocytes/100 WBC Auto (Bl d)Ordered By: Denice Dahl on 09-01-2023 Lymphocytes/100 WBC (Bld) N/A [facility] Lymphocytes/100 leukocytes i n Blood by Manual countOrdered By: Denice Dahl on 09-01-2023 Lymphocytes/100 WBC (Bld) 16 % Low 18-42 [facility] Comment on above: Performed By: #### B MP, DIFF CBC ####[facility] [id number] [place] [address] [facility] Manual blood segmented neutr ophils/100 leukocytesOrdered By: Denice Dahl on 09-01-2023 Segmented neutrophils/100 WBC (Bld) 71 % High 50-70 [facility] Comment on above: Performed By: #### B MP, DIFF CBC ####[facility] [id number] Metamyelocytes/100 WBC Manua l cnt (Bld)Ordered By: Denice Dahl on 09-01-2023 Metamyelocytes/100 WBC (Bld) 1 % High 0-0 [facility] Monocytes Auto (Bld) [#/Vol] Ordered By: Denice Dahl on 09-01-2023 Monocytes (Bld) [#/Vol] N/A [facility] Monocytes/100 WBC Auto (Bld) Ordered By: Denice Dahl on 09-01-2023 Monocytes/100 WBC (Bld) N/A [facility] Monocytes/100 leukocytes in Blood by Manual countOrdered By: Denice Dahl on 09-01-2023 Monocytes/100 WBC (Bld) 6 % Normal 2-11 [facility] Comment on above: Performed By: #### B MP, DIFF CBC ####[address] [place] [id number] [place] Neutrophils Auto (Bld) [#/Vo l]Ordered By: Denice Dahl on 09-01-2023 Neutrophils (Bld) [#/Vol] N/A [facility] Neutrophils/100 WBC Auto (Bl d)Ordered By: Denice Dahl on 09-01-2023 Neutrophils/100 WBC (Bld) N/A [facility] Nucleated erythrocytes [Pres ence] in Blood by Automated countOrdered By: Denice Dahl on 09-01-2023 Nucleated RBC Auto Ql (Bld) N/A [facility] Peripheral white blood cell differential % bands, microscopic examOrdered By: Denice Dahl on 09-01-2023 Band form neutrophils/100 WBC (Bld) 2 % Normal 0-5 [facility] Comment on above: Performed By: #### B MP, DIFF CBC ####[address] [place] [address] [place] Platelet adequacy [Presence] in Blood by Light microscopyOrdered By: Denice Dahl on 09-01-2023 Platelets LM Ql (Bld) Normal Normal [facility] Platelet morphology finding [Identifier] in BloodOrdered By: Denice Dahl on 09-01-2023 Platelet morphology finding Nom (Bld) Normal Normal [facility] Polychromasia [Presence] in Blood by Light microscopyOrdered By: Denice Dahl on 09-01-2023 Polychromasia LM Ql (Bld) Slight [facility] RBC morphologyOrdered By: Ra chioma Dahl on 09-01-2023 RBC morphology finding Nom (Bld) N/A [facility] Glucose Poct Glucometerson 0 08-31-2023 Glucose [Mass/Vol] 400 mg/dL Off scale high [facility] Comment on above: Result Comment: [facility] Glucose Reference Range is dependent on time and content of last meal. Glucose of more than 200 mg/dL in a nonstressed, ambulatory subject supports the diagnosis of Diabetes Mellitus.PERFORMED BY:[address] [place], [place] [phone] MEDICAL DIRECTORDEAN MCWILLIAMS M.D. Performed By: #### G LULS ####Point of Care testing, Glucose [Mass/Vol] 324 mg/dL Normal [facility] Comment on above: Result Comment: [facility] Glucose Reference Range is dependent on time and content of last meal. Glucose of more than 200 mg/dL in a nonstressed, ambulatory subject supports the diagnosis of Diabetes Mellitus.PERFORMED BY:[address] [address] [address] [place], [place] [phone] MEDICAL DIRECTORDEAN MCWILLIAMS M.D. Performed By: #### G LULS ####Point of Care testing, Glucose [Mass/Vol] 305 mg/dL Normal [facility] Comment on above: Result Comment: [facility] Glucose Reference Range is dependent on time and content of last meal. Glucose of more than 200 mg/dL in a nonstressed, ambulatory subject supports the diagnosis of Diabetes Mellitus.PERFORMED BY:[address] [place], [place] [phone] MEDICAL DIRECTORDEAN MCWILLIAMS M.D. Performed By: #### G LULS ####Point of Care testing, Glucose [Mass/Vol] 190 mg/dL Normal [facility] Comment on above: Result Comment: [facility] Glucose Reference Range is dependent on time and content of last meal. Glucose of more than 200 mg/dL in a nonstressed, ambulatory subject supports the diagnosis of Diabetes Mellitus.PERFORMED BY:[address] [place], [place] [phone] MEDICAL DIRECTORDEAN MCWILLIAMS M.D. Performed By: #### G LUELLIS ####Point of Care testing, Glucose [Mass/Vol] 310 mg/dL Normal [facility] Comment on above: Result Comment: [facility] Glucose Reference Range is dependent on time and content of last meal. Glucose of more than 200 mg/dL in a nonstressed, ambulatory subject supports the diagnosis of Diabetes Mellitus.PERFORMED BY:[address] [place], [place] [phone] MEDICAL DIRECTORDEAN MCWILLIAMS M.D. Performed By: #### G LUELLIS ####Point of Care testing, Alanine aminotransferase [En zymatic activity/volume] in Serum or PlasmaOrdered By: Denice Dahl on 08-30-2023 ALT [Catalytic activity/Vol] 18 U/L Normal 7-52 [facility] Comment on above: Performed By: #### C BC, CMP ####[address] [place] [address] [place] Alkaline phosphatase [Enzyma tic activity/volume] in Serum or PlasmaOrdered By: Denice Massbenson on 08-30-2023 ALP [Catalytic activity/Vol] 49 U/L Normal 34-104 [facility] Comment on above: Performed By: #### C BC, CMP ####[address] [address] [facility] Aspartate aminotransferase [ Enzymatic activity/volume] in Serum or PlasmaOrdered By: Denice Massbenson on 08-30-2023 AST [Catalytic activity/Vol] 19 U/L Normal 13-39 [facility] Comment on above: Performed By: #### C BC, CMP ####[address] Bilirubin.total [Mass/volume ] in Serum or PlasmaOrdered By: Denice Dahl on 08-30-2023 Bilirubin [Mass/Vol] 0.6 mg/dL Normal 0.3-1.0 [facility] Comment on above: Performed By: #### C BC, CMP ####[address] Complete Blood Count Auto Di ffon 08-30-2023 Basophils (Bld) [#/Vol] 0.1 10*3/uL Normal 0.0-0.2 [facility] Comment on above: Result Comment: PERF ORMED BY:[address] [place], [place] [phone] MEDICAL DIRECTORDEAN MCWILLIAMS M.D. Performed By: #### C OXANA, CMP ####[address] Basophils/100 WBC (Bld) 0.8 % Normal . [facility] Comment on above: Performed By: #### C OXANA, CMP ####[address] Eosinophils (Bld) [#/Vol] 0.3 10*3/uL Normal 0.0-0.45 [facility] Comment on above: Performed By: #### C OXANA, CMP ####[address] Eosinophils/100 WBC (Bld) 4.5 % Normal . [facility] Comment on above: Performed By: #### C BC, CMP ####[address] Erythrocyte distribution width (RBC) [Ratio] 18.1 % High 12.0-14.8 [facility] Comment on above: Performed By: #### C BC, CMP ####[address] Hematocrit (Bld) [Volume fraction] 28.0 % Low 38.8-50.0 [facility] Comment on above: Performed By: #### C OXANA, CMP ####[address] Hemoglobin (Bld) [Mass/Vol] 9.2 g/dL Low 13.0-17.0 [facility] Comment on above: Performed By: #### C BC, CMP ####[address] Lymphocytes (Bld) [#/Vol] 1.3 10*3/uL Normal 1.00-4.8 [facility] Comment on above: Performed By: #### C OXANA, CMP ####[address] Lymphocytes/100 WBC (Bld) 20.1 % Normal . [facility] Comment on above: Performed By: #### C OXANA, CMP ####[address] MCH (RBC) [Entitic mass] 28.5 pg Normal 27.5-35.2 [facility] Comment on above: Performed By: #### C OXANA, CMP ####[address] MCV (RBC) [Entitic vol] 86.6 fL Normal 83.5-101 [facility] Comment on above: Performed By: #### C OXANA, CMP ####[address] Mean Corpuscular HGB Conc 32.9 g/dL Normal 32.5-35.6 [facility] Comment on above: Performed By: #### C OXANA, CMP ####[address] Monocytes (Bld) [#/Vol] 1.0 10*3/uL High 0.0-0.8 [facility] Comment on above: Performed By: #### C BC, CMP ####[address] Monocytes/100 WBC (Bld) 16.3 % Normal . [facility] Comment on above: Performed By: #### C BC, CMP ####[address] Neutrophils (Bld) [#/Vol] 3.6 10*3/uL Normal 1.8-7.7 [facility] Comment on above: Performed By: #### C BC, CMP ####[address] Neutrophils/100 WBC (Bld) 58.3 % Normal . [facility] Comment on above: Performed By: #### C BC, CMP ####[address] NRBC% 0.3 /100{WBC} Normal 0-0.5 [facility] Comment on above: Performed By: #### C BC, CMP ####[address] Platelet mean volume (Bld) [Entitic vol] 8.1 fL Normal 6.6-10.1 [facility] Comment on above: Performed By: #### C BC, CMP ####[address] Platelets (Bld) [#/Vol] 216 10*3/uL Normal 150-450 [facility] Comment on above: Performed By: #### C BC, CMP ####[address] RBC (Bld) [#/Vol] 3.23 10*6/uL Low 3.90-5.60 [facility] Comment on above: Performed By: #### C BC, CMP ####[address] WBC (Bld) [#/Vol] 6.3 10*3/uL Normal 4.1-10.5 [facility] Comment on above: Performed By: #### C BC, CMP ####[address] [address] [facility] Comprehensive Metabolic Pane arghu 08-30-2023 Albumin [Mass/Vol] 2.6 g/dL Low 3.5-5.7 [facility] Comment on above: Performed By: #### C BC, CMP ####[address] [address] [facility] Anion gap [Moles/Vol] 14.1 mmol/L Normal 6.0-15.0 [facility] Comment on above: Performed By: #### C BC, CMP ####[address] [address] [facility] Calcium [Mass/Vol] 9.3 mg/dL Normal 8.6-10.3 [facility] Comment on above: Performed By: #### C BC, CMP ####[place] [id number] [facility] Chloride [Moles/Vol] 96 mmol/L Low 98-107 [facility] Comment on above: Performed By: #### C BC, CMP ####[address] [id number] [facility] CO2 [Moles/Vol] 25.2 mmol/L Normal 21.0-31.0 [facility] Comment on above: Performed By: #### C BC, CMP ####[address] [address] [facility] Creatinine [Mass/Vol] 6.91 mg/dL Significan t change up 0.70-1.30 [facility] Comment on above: Performed By: #### C BC, CMP ####[address] [address] [facility] Creatinine Clr Calc Pharmacy 12.36 Normal [facility] Comment on above: Result Comment: PERF ORMED BY:[address] [place], [place] [phone] MEDICAL JAKE MCWILLIAMS M.D. Performed By: #### C BC, CMP ####[place] [id number] [facility] GFR/1.73 sq M.predicted MDRD (S/P/Bld) [Vol rate/Area] 8.110 mL/min/{1.73_m2} Normal [facility] Comment on above: Performed By: #### C BC, CMP ####[id number] [facility] Glucose [Mass/Vol] 246 mg/dL Significant change up 70-100 [facility] Comment on above: Result Comment: [facility] Glucose Reference Range is dependent on time and content of last meal. Glucose of more than 200 mg/dL in a nonstressed, ambulatory subject supports the diagnosis of Diabetes Mellitus. ADA recommended reference range Performed By: #### C OXANA, CMP ####[place] [id number] [facility] Potassium [Moles/Vol] 4.3 mmol/L Normal 3.5-5.1 [facility] Comment on above: Performed By: #### C OXANA, CMP ####[address] [id number] [facility] Sodium [Moles/Vol] 131 mmol/L Low 136-145 [facility] Comment on above: Performed By: #### C OXANA, CMP ####[address] [id number] [facility] Urea nitrogen [Mass/Vol] 22 mg/dL Normal 7-25 [facility] Comment on above: Performed By: #### C OXANA, CMP ####[address] [id number] [facility] Glucose Poct Glucometerson 0 - Commemt1 Normal [facility] Comment on above: Result Comment: Glu2 : WILL NOTIFY DR/FRANCIERFORMED BY:[address] [place], [place] [phone] MEDICAL DIRECTORDEAN MCWILLIAMS M.D. Performed By: #### G DARLENE ####Point of Care testing, Glucose [Mass/Vol] 484 mg/dL Off scale high [facility] Comment on above: Result Comment: [facility] Glucose Reference Range is dependent on time and content of last meal. Glucose of more than 200 mg/dL in a nonstressed, ambulatory subject supports the diagnosis of Diabetes Mellitus. Performed By: #### G LULS ####Point of Care testing, Commemt1 Normal [facility] Comment on above: Result Comment: Glu2 : Will Repeat Test Performed By: #### G LULS ####Point of Care testing, Commemt2 WILL NOTIFY DR/LORE Normal [facility] Comment on above: Result Comment: PERF ORMED BY:[address] [place], [place] [phone] MEDICAL DIRECTORDEAN MCWILLIAMS M.D. Performed By: #### G LULS ####Point of Care testing, Glucose [Mass/Vol] 466 mg/dL Off scale high [facility] Comment on above: Result Comment: [place] om Glucose Reference Range is dependent on time and content of last meal. Glucose of more than 200 mg/dL in a nonstressed, ambulatory subject supports the diagnosis of Diabetes Mellitus. Performed By: #### G LULS ####Point of Care testing, Commemt1 Normal [facility] Comment on above: Result Comment: Glu2 : Will Repeat Test Performed By: #### G LULS ####Point of Care testing, Commemt2 WILL NOTIFY DR/LORE Normal [facility] Comment on above: Result Comment: PERF ORMED BY:[address], [place] [phone] MEDICAL DIRECTORDEAN MCWILLIAMS M.D. Performed By: #### G LULS ####Point of Care testing, Glucose [Mass/Vol] 475 mg/dL Off scale high [facility] Comment on above: Result Comment: [place] om Glucose Reference Range is dependent on time and content of last meal. Glucose of more than 200 mg/dL in a nonstressed, ambulatory subject supports the diagnosis of Diabetes Mellitus. Performed By: #### G LULS ####Point of Care testing, Glucose [Mass/Vol] 529 mg/dL Off scale high [facility] Comment on above: Result Comment: [place] om Glucose Reference Range is dependent on time and content of last meal. Glucose of more than 200 mg/dL in a nonstressed, ambulatory subject supports the diagnosis of Diabetes Mellitus. Performed By: #### G LUELLIS ####Point of Care testing, Glucose [Mass/Vol] 188 mg/dL Normal [facility] Comment on above: Result Comment: [place] Glucose Reference Range is dependent on time and content of last meal. Glucose of more than 200 mg/dL in a nonstressed, ambulatory subject supports the diagnosis of Diabetes Mellitus.PERFORMED BY:[address] RODRIGUEZBensonElodia[place], [place] [phone] MEDICAL DIRECTORDEAN MCWILLIAMS M.D. Performed By: #### G DARLENE ####Point of Care testing, Glucose [Mass/Vol] 221 mg/dL Normal [facility] Comment on above: Result Comment: [facility] Glucose Reference Range is dependent on time and content of last meal. Glucose of more than 200 mg/dL in a nonstressed, ambulatory subject supports the diagnosis of Diabetes Mellitus.PERFORMED BY:[address] [place], [place] [phone] MEDICAL DIRECTORDEAN MCWILLIAMS M.D. Performed By: #### G DARLENE ####Point of Care testing, No Panel InformationOrdered By: Denice Dahl on 08-30-2023 Bedside Glucose #[address]/rn [facility] Protein [Mass/volume] in Ser um or PlasmaOrdered By: Denice Dahl on 08-30-2023 Protein [Mass/Vol] 6.3 g/dL Low 6.4-8.9 [facility] Comment on above: Performed By: #### C BC, CMP ####[address] [address] [facility] Serum globulin measurement b y calculation (mass/volume)Ordered By: Denice Dahl on 08-30-2023 Globulin (S) [Mass/Vol] 3.7 g/dL Normal [facility] Comment on above: Performed By: #### C BC, CMP ####[address] [address] [facility] Serum or plasma albumin/glob ulin mass ratioOrdered By: Denice Dahl on 08-30-2023 Albumin/Globulin [Mass ratio] 0.7 {ratio} Normal [facility] Comment on above: Performed By: #### C BC, CMP ####[place] [id number] [facility] Vancomycin [Mass/volume] in Serum or PlasmaOrdered By: Alon Santiago on 08-30-2023 Vancomycin [Mass/Vol] 18.2 ug/mL 5.0-20.0 [facility] Comment on above: Last dose: - Vancomycin,Randomon 08-30-19 24 Vancomycin,Random 18.2 ug/mL Normal 5.0-20.0 [facility] Comment on above: Order Comment: Date of last dose?: [id number] Time of last dose?: 1829 Result Comment: Last dose: -PERFORMED BY:[address] [address] [place], [place] [phone] MEDICAL DIRECTORDEAN MCWILLIAMS M.D. Performed By: #### V ANCR ####[phone] [facility] C reactive protein [Mass/vol ume] in Serum or PlasmaOrdered By: Alfredo Acosta on 08-29-2023 CRP [Mass/Vol] 10.2 mg/dL High 0.0-0.5 [facility] C-Reactive Proteinon 024 C-Reactive Protein 10.2 mg/dL High 0.0-0.5 [facility] Comment on above: Result Comment: PERF ORMED BY:[address] [address] [place], [place] [phone] MEDICAL DIRECTORDEAN MCWILLIAMS M.D. Performed By: #### C RP ####[address] [address] [facility] Comprehensive Metabolic Pane raghu 08-29-2023 Albumin [Mass/Vol] 2.6 g/dL Low 3.5-5.7 [facility] Comment on above: Performed By: #### S CAN CBC, CMP ####[address] [address] [facility] Albumin/Globulin [Mass ratio] 0.8 {ratio} Normal [facility] Comment on above: Performed By: #### S CAN CBC, CMP ####[address] [address] [facility] ALP [Catalytic activity/Vol] 55 U/L Normal 34-104 [facility] Comment on above: Performed By: #### S CAN CBC, CMP ####[address] [address] [facility] ALT [Catalytic activity/Vol] 21 U/L Normal 7-52 [facility] Comment on above: Performed By: #### S CAN CBC, CMP ####[address] [address] [facility] Anion gap [Moles/Vol] 10.9 mmol/L Normal 6.0-15.0 [facility] Comment on above: Performed By: #### S CAN CBC, CMP ####[place] [phone] [facility] AST [Catalytic activity/Vol] 23 U/L Normal 13-39 [facility] Comment on above: Performed By: #### S CAN CBC, CMP ####[phone] [facility] Bilirubin [Mass/Vol] 0.6 mg/dL Normal 0.3-1.0 [facility] Comment on above: Performed By: #### S CAN CBC, CMP ####[place] [phone] [facility] Calcium [Mass/Vol] 8.7 mg/dL Normal 8.6-10.3 [facility] Comment on above: Performed By: #### S CAN CBC, CMP ####[address] [address] [facility] Chloride [Moles/Vol] 95 mmol/L Low 98-107 [facility] Comment on above: Performed By: #### S CAN CBC, CMP ####[address] [place] [address] [place] CO2 [Moles/Vol] 28.8 mmol/L Normal 21.0-31.0 [facility] Comment on above: Performed By: #### S CAN CBC, CMP ####[address] Creatinine [Mass/Vol] 4.98 mg/dL Significan t change up 0.70-1.30 [facility] Comment on above: Performed By: #### S CAN CBC, CMP ####[address] Creatinine Clr Calc Pharmacy 17.24 Normal [facility] Comment on above: Result Comment: PERF ORMED BY:[address] [place], [place] [phone] MEDICAL JAKE MCWILLIAMS M.D. Performed By: #### S CAN CBC, CMP ####[address] GFR/1.73 sq M.predicted MDRD (S/P/Bld) [Vol rate/Area] 12.016 mL/min/{1.73_m2} Normal [facility] Comment on above: Performed By: #### S CAN CBC, CMP ####[address] Globulin (S) [Mass/Vol] 3.2 g/dL Normal [facility] Comment on above: Performed By: #### S CAN CBC, CMP ####[address] Glucose [Mass/Vol] 391 mg/dL Significant change up 70-100 [facility] Comment on above: Result Comment: [place] Glucose Reference Range is dependent on time and content of last meal. Glucose of more than 200 mg/dL in a nonstressed, ambulatory subject supports the diagnosis of Diabetes Mellitus. ADA recommended reference range Performed By: #### S CAN CBC, CMP ####[address] Potassium [Moles/Vol] 4.7 mmol/L Normal 3.5-5.1 [facility] Comment on above: Performed By: #### S CAN CBC, CMP ####[place] [id number] Protein [Mass/Vol] 5.8 g/dL Low 6.4-8.9 [facility] Comment on above: Performed By: #### S CAN CBC, CMP ####[address] Sodium [Moles/Vol] 130 mmol/L Low 136-145 [facility] Comment on above: Performed By: #### S CAN CBC, CMP ####[address] Urea nitrogen [Mass/Vol] 16 mg/dL Normal 7-25 [facility] Comment on above: Performed By: #### S CAN CBC, CMP ####[address] Glucose Poct Glucometerson 0 08-29-2023 Glucose [Mass/Vol] 249 mg/dL Normal [facility] Comment on above: Result Comment: [place] om Glucose Reference Range is dependent on time and content of last meal. Glucose of more than 200 mg/dL in a nonstressed, ambulatory subject supports the diagnosis of Diabetes Mellitus.PERFORMED BY:[address] ZAVALAElodiaADE, [place] [phone] MEDICAL DIRECTORDEAN MCWILLIAMS M.D. Performed By: #### G LULS ####Point of Care testing, Glucose [Mass/Vol] 300 mg/dL Normal [facility] Comment on above: Result Comment: [place] om Glucose Reference Range is dependent on time and content of last meal. Glucose of more than 200 mg/dL in a nonstressed, ambulatory subject supports the diagnosis of Diabetes Mellitus.PERFORMED BY:[address] [place], [place] [phone] PAIGE MCWILLIAMS M.D. Performed By: #### G LULS ####Point of Care testing, Commemt1 Normal [facility] Comment on above: Result Comment: Glu2 : WILL NOTIFY /FRANCIERFORMED BY:[address] [address] [address] [place]AVALAElodiaADE[place], [place] [phone] MEDICAL DIRECTORDEAN MCWILLIAMS M.D. Performed By: #### G LULS ####Point of Care testing, Glucose [Mass/Vol] 421 mg/dL Off scale high [facility] Comment on above: Result Comment: [place] om Glucose Reference Range is dependent on time and content of last meal. Glucose of more than 200 mg/dL in a nonstressed, ambulatory subject supports the diagnosis of Diabetes Mellitus. Performed By: #### G LULS ####Point of Care testing, Glucose [Mass/Vol] 312 mg/dL Normal [facility] Comment on above: Result Comment: [place] om Glucose Reference Range is dependent on time and content of last meal. Glucose of more than 200 mg/dL in a nonstressed, ambulatory subject supports the diagnosis of Diabetes Mellitus.PERFORMED BY:[address] [address] [address] [place], [place] [phone] MEDICAL DIRECTORDEAN MCWILLIAMS M.D. Performed By: #### G LULS ####Point of Care testing, Glucose [Mass/Vol] 323 mg/dL Normal [facility] Comment on above: Result Comment: [place] om Glucose Reference Range is dependent on time and content of last meal. Glucose of more than 200 mg/dL in a nonstressed, ambulatory subject supports the diagnosis of Diabetes Mellitus.PERFORMED BY:[address] [address] [address] [place]odiaADE[place], [place] [phone] MEDICAL JAKE MCWILLIAMS M.D. Performed By: #### G LULS ####Point of Care testing, Glucose [Mass/Vol] 324 mg/dL Normal [facility] Comment on above: Result Comment: [place] om Glucose Reference Range is dependent on time and content of last meal. Glucose of more than 200 mg/dL in a nonstressed, ambulatory subject supports the diagnosis of Diabetes Mellitus.PERFORMED BY:[address]ENNIFERBensonElodiaADE[place], [place] [phone] MEDICAL DIRECTORDEAN MCWILLIAMS M.D. Performed By: #### G DARLENE ####Point of Care testing, Microcytes LM Ql (Bld)Ordere d By: Denice Dahl on 08-29-2023 Microcytes Ql (Bld) Slight [facility] Poikilocytosis [Presence] in Blood by Light microscopyOrdered By: Denice Dahl on 08-29-2023 Poikilocytosis LM Ql (Bld) Slight [facility] Scan and CBCon 08-29-2023 Anisocytosis Ql (Bld) Slight Normal [facility] Comment on above: Performed By: #### S CAN CBC, CMP ####[address] Basophils (Bld) [#/Vol] 0.0 10*3/uL Normal 0.0-0.2 [facility] Comment on above: Performed By: #### S CAN CBC, CMP ####[address] Basophils/100 WBC (Bld) 0.8 % Normal . [facility] Comment on above: Performed By: #### S CAN CBC, CMP ####[address] Eosinophils (Bld) [#/Vol] 0.1 10*3/uL Normal 0.0-0.45 [facility] Comment on above: Performed By: #### S CAN CBC, CMP ####[address] Eosinophils/100 WBC (Bld) 3.1 % Normal . [facility] Comment on above: Performed By: #### S CAN CBC, CMP ####[address] Erythrocyte distribution width (RBC) [Ratio] 18.2 % High 12.0-14.8 [facility] Comment on above: Performed By: #### S CAN CBC, CMP ####[address] Hematocrit (Bld) [Volume fraction] 27.3 % Low 38.8-50.0 [facility] Comment on above: Performed By: #### S CAN CBC, CMP ####[address] Hemoglobin (Bld) [Mass/Vol] 8.8 g/dL Low 13.0-17.0 [facility] Comment on above: Performed By: #### S CAN CBC, CMP ####[address] Lymphocytes (Bld) [#/Vol] 0.8 10*3/uL Low 1.00-4.8 [facility] Comment on above: Performed By: #### S CAN CBC, CMP ####[address] Lymphocytes/100 WBC (Bld) 15.7 % Normal . [facility] Comment on above: Performed By: #### S CAN CBC, CMP ####[address] MCH (RBC) [Entitic mass] 28.2 pg Normal 27.5-35.2 [facility] Comment on above: Performed By: #### S CAN CBC, CMP ####[address] MCV (RBC) [Entitic vol] 87.2 fL Normal 83.5-101 [facility] Comment on above: Performed By: #### S CAN CBC, CMP ####[address] Mean Corpuscular HGB Conc 32.3 g/dL Low 32.5-35.6 [facility] Comment on above: Performed By: #### S CAN CBC, CMP ####[address] Microcytosis Slight Normal [facility] Comment on above: Performed By: #### S CAN CBC, CMP ####[address] Monocytes (Bld) [#/Vol] 1.2 10*3/uL High 0.0-0.8 [facility] Comment on above: Performed By: #### S CAN CBC, CMP ####[address] Monocytes/100 WBC (Bld) 23.7 % Normal . [facility] Comment on above: Performed By: #### S CAN CBC, CMP ####[address] Neutrophils (Bld) [#/Vol] 2.8 10*3/uL Normal 1.8-7.7 [facility] Comment on above: Performed By: #### S CAN CBC, CMP ####[address] Neutrophils/100 WBC (Bld) 56.7 % Normal . [facility] Comment on above: Performed By: #### S CAN CBC, CMP ####[address] NRBC% 0.1 /100{WBC} Normal 0-0.5 [facility] Comment on above: Performed By: #### S CAN CBC, CMP ####[address] Platelet Estimate Normal Normal Normal [facility] Comment on above: Performed By: #### S CAN CBC, CMP ####[address] Platelet mean volume (Bld) [Entitic vol] 7.9 fL Normal 6.6-10.1 [facility] Comment on above: Performed By: #### S CAN CBC, CMP ####[place] [id number] [facility] Platelet Morphology Normal Normal Normal [facility] Comment on above: Result Comment: PERF ORMED BY:[address] [place], [place] [phone] MEDICAL DIRECTORDEAN MCWILLIAMS M.D. Performed By: #### S CAN CBC, CMP ####[address] [place] [address] [place] Platelets (Bld) [#/Vol] 234 10*3/uL Normal 150-450 [facility] Comment on above: Performed By: #### S CAN CBC, CMP ####[address] Poikilocytosis Slight Normal [facility] Comment on above: Performed By: #### S CAN CBC, CMP ####[address] RBC (Bld) [#/Vol] 3.13 10*6/uL Low 3.90-5.60 [facility] Comment on above: Performed By: #### S CAN CBC, CMP ####[address] WBC (Bld) [#/Vol] 4.9 10*3/uL Normal 4.1-10.5 [facility] Comment on above: Performed By: #### S CAN CBC, CMP ####[address] XR foot LT 2Von 08-29-2023 XR foot LT 2V Normal [facility] Aerobic Cultureon 08-28-2023 Aerobic Culture Normal [facility] Comment on above: Performed By: #### A ERC ####[address] Aerobic Culture Normal [facility] Comment on above: Performed By: #### A ERC ####[address] [place] cells [Presence] in Blo od by Light microscopyOrdered By: Denice Dahl on 08-28-2023 Vian cells LM Ql (Bld) Moderate Fi [facility] Comprehensive Metabolic Pane raghu 08-28-2023 Albumin [Mass/Vol] 3.0 g/dL Low 3.5-5.7 [facility] Comment on above: Performed By: #### D IFF CBC, CMP ####[address] Albumin/Globulin [Mass ratio] 0.8 {ratio} Normal [facility] Comment on above: Performed By: #### D IFF CBC, CMP ####[place] [id number] [facility] ALP [Catalytic activity/Vol] 53 U/L Normal 34-104 [facility] Comment on above: Performed By: #### D IFF CBC, CMP ####[place] [id number] [facility] ALT [Catalytic activity/Vol] 25 U/L Normal 7-52 [facility] Comment on above: Performed By: #### D IFF CBC, CMP ####[place] [id number] [facility] Anion gap [Moles/Vol] 14.5 mmol/L Normal 6.0-15.0 [facility] Comment on above: Performed By: #### D IFF CBC, CMP ####[address] AST [Catalytic activity/Vol] 42 U/L High 13-39 [facility] Comment on above: Performed By: #### D IFF CBC, CMP ####[place] [id number] [facility] Bilirubin [Mass/Vol] 0.6 mg/dL Normal 0.3-1.0 [facility] Comment on above: Performed By: #### D IFF CBC, CMP ####[place] [id number] [facility] Calcium [Mass/Vol] 9.7 mg/dL Normal 8.6-10.3 [facility] Comment on above: Performed By: #### D IFF CBC, CMP ####[place] [id number] [facility] Chloride [Moles/Vol] 97 mmol/L Low 98-107 [facility] Comment on above: Performed By: #### D IFF CBC, CMP ####[place] [id number] [facility] CO2 [Moles/Vol] 27.1 mmol/L Normal 21.0-31.0 [facility] Comment on above: Performed By: #### D IFF CBC, CMP ####[address] Creatinine [Mass/Vol] 7.97 mg/dL Significan t change up 0.70-1.30 [facility] Comment on above: Performed By: #### D IFF CBC, CMP ####[address] Creatinine Clr Calc Pharmacy 10.40 Normal [facility] Comment on above: Result Comment: PERF ORMED BY:[address] [place], [place] [phone] MEDICAL DIRECTORDEAN MCWILLIAMS M.D. Performed By: #### D IFF CBC, CMP ####[address] GFR/1.73 sq M.predicted MDRD (S/P/Bld) [Vol rate/Area] 6.833 mL/min/{1.73_m2} Normal [facility] Comment on above: Performed By: #### D IFF CBC, CMP ####[address] Globulin (S) [Mass/Vol] 3.8 g/dL Normal [facility] Comment on above: Performed By: #### D IFF CBC, CMP ####[address] Glucose [Mass/Vol] 61 mg/dL Low 70-100 [facility] Comment on above: Result Comment: [place] Glucose Reference Range is dependent on time and content of last meal. Glucose of more than 200 mg/dL in a nonstressed, ambulatory subject supports the diagnosis of Diabetes Mellitus. ADA recommended reference range Performed By: #### D IFF CBC, CMP ####[address] Potassium [Moles/Vol] 3.6 mmol/L Normal 3.5-5.1 [facility] Comment on above: Performed By: #### D IFF CBC, CMP ####[place] [id number] [facility] Protein [Mass/Vol] 6.8 g/dL Normal 6.4-8.9 [facility] Comment on above: Performed By: #### D IFF CBC, CMP ####[place] [id number] [facility] Sodium [Moles/Vol] 135 mmol/L Low 136-145 [facility] Comment on above: Performed By: #### D IFF CBC, CMP ####[address] Urea nitrogen [Mass/Vol] 29 mg/dL High 7-25 [facility] Comment on above: Performed By: #### D IFF CBC, CMP ####[address] Diff and CBCon 08-28-2023 Anisocytosis Ql (Bld) Slight Normal [facility] Comment on above: Performed By: #### D IFF CBC, CMP ####[address] Crenated RBC Moderate Normal [facility] Comment on above: Performed By: #### D IFF CBC, CMP ####[address] Eosinophils/100 WBC (Bld) 6 % High 1-3 [facility] Comment on above: Performed By: #### D IFF CBC, CMP ####[place] [phone] [facility] Erythrocyte distribution width (RBC) [Ratio] 18.0 % High 12.0-14.8 [facility] Comment on above: Performed By: #### D IFF CBC, CMP ####[place] [phone] [facility] Hematocrit (Bld) [Volume fraction] 28.2 % Low 38.8-50.0 [facility] Comment on above: Performed By: #### D IFF CBC, CMP ####[address] Hemoglobin (Bld) [Mass/Vol] 9.4 g/dL Low 13.0-17.0 [facility] Comment on above: Performed By: #### D IFF CBC, CMP ####[place] [phone] [facility] Lymphocytes/100 WBC (Bld) 13 % Low 18-42 [facility] Comment on above: Performed By: #### D IFF CBC, CMP ####[address] MCH (RBC) [Entitic mass] 28.7 pg Normal 27.5-35.2 [facility] Comment on above: Performed By: #### D IFF CBC, CMP ####[address] MCV (RBC) [Entitic vol] 85.8 fL Normal 83.5-101 [facility] Comment on above: Performed By: #### D IFF CBC, CMP ####[address] Mean Corpuscular HGB Conc 33.4 g/dL Normal 32.5-35.6 [facility] Comment on above: Performed By: #### D IFF CBC, CMP ####[place] [phone] [facility] Monocytes/100 WBC (Bld) 16 % High 2-11 [facility] Comment on above: Performed By: #### D IFF CBC, CMP ####[place] [phone] [facility] Myelocytes 1 % High 0-0 [facility] Comment on above: Performed By: #### D IFF CBC, CMP ####[place] [phone] [facility] Ovalocytes Slight Normal [facility] Comment on above: Performed By: #### D IFF CBC, CMP ####[address] Platelet Estimate Normal Normal Normal [facility] Comment on above: Result Comment: PERF ORMED BY:[address] [place], [place] [phone] MEDICAL DIRECTORDEAN MCWILLIAMS M.D. Performed By: #### D IFF CBC, CMP ####[place] [phone] [facility] Platelet mean volume (Bld) [Entitic vol] 7.8 fL Normal 6.6-10.1 [facility] Comment on above: Performed By: #### D IFF CBC, CMP ####[place] [phone] [facility] Platelet Morphology Normal Normal Normal [facility] Comment on above: Result Comment: PERF ORMED BY:[address] [place], [place] [phone] MEDICAL DIRECTORDEAN MCWILLIAMS M.D. Performed By: #### D IFF CBC, CMP ####[place] [phone] [facility] Platelets (Bld) [#/Vol] 246 10*3/uL Normal 150-450 [facility] Comment on above: Performed By: #### D IFF CBC, CMP ####[place] [phone] [facility] Poikilocytosis Moderate Normal [facility] Comment on above: Performed By: #### D IFF CBC, CMP ####[place] [phone] [facility] Polychromasia Slight Normal [facility] Comment on above: Performed By: #### D IFF CBC, CMP ####[place] [phone] [facility] RBC (Bld) [#/Vol] 3.28 10*6/uL Low 3.90-5.60 [facility] Comment on above: Performed By: #### D IFF CBC, CMP ####[place] [phone] [facility] Reactive Lymphocytes 3 % Normal 0-12 [facility] Comment on above: Performed By: #### D IFF CBC, CMP ####[place] [id number] [place] [address] [facility] Segmented neutrophils/100 WBC (Bld) 62 % Normal 50-70 [facility] Comment on above: Performed By: #### D IFF CBC, CMP ####[place] [id number] [place] [address] [facility] WBC (Bld) [#/Vol] 6.1 10*3/uL Normal 4.1-10.5 [facility] Comment on above: Performed By: #### D IFF CBC, CMP ####[address] [address] [facility] Glucose Poct Glucometerson 0 08-28-2023 Commemt1 Normal [facility] Comment on above: Result Comment: Glu2 : WILL NOTIFY DR/RNPERFORMED BY:[address] [place], [place] [phone] MEDICAL DIRECTORDEAN MCWILLIAMS M.D. Performed By: #### G LULS ####Point of Care testing, Glucose [Mass/Vol] 419 mg/dL Off scale high [facility] Comment on above: Result Comment: [place] om Glucose Reference Range is dependent on time and content of last meal. Glucose of more than 200 mg/dL in a nonstressed, ambulatory subject supports the diagnosis of Diabetes Mellitus. Performed By: #### G LULS ####Point of Care testing, Commemt1 Normal [facility] Comment on above: Result Comment: Glu2 : Will Repeat TestPERFORMED BY:[address] [place], [place] [phone] MEDICAL DIRECTORDEAN MCWILLIAMS M.D. Performed By: #### G LULS ####Point of Care testing, Glucose [Mass/Vol] 435 mg/dL Off scale high [facility] Comment on above: Result Comment: [place] Glucose Reference Range is dependent on time and content of last meal. Glucose of more than 200 mg/dL in a nonstressed, ambulatory subject supports the diagnosis of Diabetes Mellitus. Performed By: #### G LULS ####Point of Care testing, Glucose [Mass/Vol] 297 mg/dL Normal [facility] Comment on above: Result Comment: [place] om Glucose Reference Range is dependent on time and content of last meal. Glucose of more than 200 mg/dL in a nonstressed, ambulatory subject supports the diagnosis of Diabetes Mellitus.PERFORMED BY:[address] [place], [place] [phone] MEDICAL DIRECTORDEAN MCWILLIAMS M.D. Performed By: #### G LULS ####Point of Care testing, Commemt1 Glu2: Cleaned Meter Normal [facility] Comment on above: Result Comment: PERF ORMED BY:[address] [place], [place] [phone] MEDICAL DIRECTORDEAN MCWILLIAMS M.D. Performed By: #### G LULS ####Point of Care testing, Glucose [Mass/Vol] 79 mg/dL Normal [facility] Comment on above: Result Comment: [place] om Glucose Reference Range is dependent on time and content of last meal. Glucose of more than 200 mg/dL in a nonstressed, ambulatory subject supports the diagnosis of Diabetes Mellitus. Performed By: #### G LULS ####Point of Care testing, Commemt1 Glu2: Cleaned Meter Normal [facility] Comment on above: Result Comment: PERF ORMED BY:[address] [place], [place] [phone] MEDICAL DIRECTORDEAN MCWILLIAMS M.D. Performed By: #### G LULS ####Point of Care testing, Glucose [Mass/Vol] 66 mg/dL Normal [facility] Comment on above: Result Comment: [place] om Glucose Reference Range is dependent on time and content of last meal. Glucose of more than 200 mg/dL in a nonstressed, ambulatory subject supports the diagnosis of Diabetes Mellitus. Performed By: #### G LULS ####Point of Care testing, Gram stain for investigation of transfusion reactionOrdered By: DAVID Pop on 08-28-2023 Microscopic observation Gram stain Nom (Unsp spec) Pseudomonas aeruginosa Abnormal [facility] Microscopic observation Gram stain Nom (Unsp spec) Methicillin Resis Staph Aureus Abnormal [facility] Myelocytes/100 WBC Manual cn t (Bld)Ordered By: Denice Meitalita on 08-28-2023 Myelocytes/100 WBC (Bld) 1 % High 0-0 [facility] Ovalocyte detectionOrdered B y: Denice Meitalita on 08-28-2023 Ovalocytes LM Ql (Bld) Slight [facility] Variant lymphocytes/100 WBC Manual cnt (Bld)Ordered By: Denice Fariabenson on 08-28-2023 Variant lymphocytes/100 WBC (Bld) 3 % 0-12 [facility] Comprehensive Metabolic Pane raghu 08-27-2023 Albumin [Mass/Vol] 2.7 g/dL Low 3.5-5.7 [facility] Comment on above: Performed By: #### C MP ####[place] [id number] [facility] Albumin/Globulin [Mass ratio] 0.7 {ratio} Normal [facility] Comment on above: Performed By: #### C MP ####[place] [phone] [facility] ALP [Catalytic activity/Vol] 50 U/L Normal 34-104 [facility] Comment on above: Performed By: #### C MP ####[address] [address] [facility] ALT [Catalytic activity/Vol] 22 U/L Normal 7-52 [facility] Comment on above: Performed By: #### C MP ####[address] [address] [facility] Anion gap [Moles/Vol] 11.1 mmol/L Normal 6.0-15.0 [facility] Comment on above: Performed By: #### C MP ####[place] [phone] [facility] AST [Catalytic activity/Vol] 44 U/L High 13-39 [facility] Comment on above: Performed By: #### C MP ####[place] [id number] [facility] Bilirubin [Mass/Vol] 0.6 mg/dL Normal 0.3-1.0 [facility] Comment on above: Performed By: #### C MP ####[place] [phone] [facility] Calcium [Mass/Vol] 8.9 mg/dL Normal 8.6-10.3 [facility] Comment on above: Performed By: #### C MP ####[address] Chloride [Moles/Vol] 96 mmol/L Low 98-107 [facility] Comment on above: Performed By: #### C MP ####[address] CO2 [Moles/Vol] 29.7 mmol/L Normal 21.0-31.0 [facility] Comment on above: Performed By: #### C MP ####[place] [phone] [facility] Creatinine [Mass/Vol] 6.05 mg/dL Significan t change up 0.70-1.30 [facility] Comment on above: Performed By: #### C MP ####[place] [phone] [facility] Creatinine Clr Calc Pharmacy 13.71 Normal [facility] Comment on above: Result Comment: PERF ORMED BY:[address] [place], [place] [phone] MEDICAL JAKE MCWILLIAMS M.D. Performed By: #### C MP ####[place] [phone] [facility] GFR/1.73 sq M.predicted MDRD (S/P/Bld) [Vol rate/Area] 9.513 mL/min/{1.73_m2} Normal [facility] Comment on above: Performed By: #### C MP ####[place] [phone] [place] Globulin (S) [Mass/Vol] 3.7 g/dL Normal [facility] Comment on above: Performed By: #### C MP ####[address] Glucose [Mass/Vol] 124 mg/dL High 70-100 [facility] Comment on above: Result Comment: [place] Glucose Reference Range is dependent on time and content of last meal. Glucose of more than 200 mg/dL in a nonstressed, ambulatory subject supports the diagnosis of Diabetes Mellitus. ADA recommended reference range Performed By: #### C MP ####[address] Potassium [Moles/Vol] 3.8 mmol/L Normal 3.5-5.1 [facility] Comment on above: Performed By: #### C MP ####[address] Protein [Mass/Vol] 6.4 g/dL Normal 6.4-8.9 [facility] Comment on above: Performed By: #### C MP ####[address] Sodium [Moles/Vol] 133 mmol/L Low 136-145 [facility] Comment on above: Performed By: #### C MP ####[address] Urea nitrogen [Mass/Vol] 23 mg/dL Normal 7-25 [facility] Comment on above: Performed By: #### C MP ####[place] [phone] [facility] Diff and CBCon 08-27-2023 Anisocytosis Ql (Bld) Slight Normal [facility] Comment on above: Performed By: #### D IFF CBC, ESR ####[place] [phone] [facility] Band form neutrophils/100 WBC (Bld) 9 % High 0-5 [facility] Comment on above: Performed By: #### D IFF CBC, ESR ####[place] [phone] [place] Basophils/100 WBC (Bld) 1 % Normal 0-2 [facility] Comment on above: Performed By: #### D IFF CBC, ESR ####[address] Crenated RBC Slight Normal [facility] Comment on above: Performed By: #### D IFF CBC, ESR ####[address] Eosinophils/100 WBC (Bld) 1 % Normal 1-3 [facility] Comment on above: Performed By: #### D IFF CBC, ESR ####[address] Erythrocyte distribution width (RBC) [Ratio] 18.1 % High 12.0-14.8 [facility] Comment on above: Performed By: #### D IFF CBC, ESR ####[address] Hematocrit (Bld) [Volume fraction] 27.6 % Low 38.8-50.0 [facility] Comment on above: Performed By: #### D IFF CBC, ESR ####[address] Hemoglobin (Bld) [Mass/Vol] 9.1 g/dL Low 13.0-17.0 [facility] Comment on above: Performed By: #### D IFF CBC, ESR ####[address] Lymphocytes/100 WBC (Bld) 15 % Low 18-42 [facility] Comment on above: Performed By: #### D IFF CBC, ESR ####[address] MCH (RBC) [Entitic mass] 28.5 pg Normal 27.5-35.2 [facility] Comment on above: Performed By: #### D IFF CBC, ESR ####[address] MCV (RBC) [Entitic vol] 86.5 fL Normal 83.5-101 [facility] Comment on above: Performed By: #### D IFF CBC, ESR ####[place] [id number] [facility] Mean Corpuscular HGB Conc 32.9 g/dL Normal 32.5-35.6 [facility] Comment on above: Performed By: #### D IFF CBC, ESR ####[place] [id number] [facility] Monocytes/100 WBC (Bld) 24 % High 2-11 [facility] Comment on above: Performed By: #### D IFF CBC, ESR ####[place] [id number] [facility] Ovalocytes Slight Normal [facility] Comment on above: Performed By: #### D IFF CBC, ESR ####[place] [id number] [facility] Platelet Estimate Normal Normal Normal [facility] Comment on above: Performed By: #### D IFF CBC, ESR ####[address] [address] [facility] Platelet mean volume (Bld) [Entitic vol] 8.0 fL Normal 6.6-10.1 [facility] Comment on above: Performed By: #### D IFF CBC, ESR ####[place] [id number] [facility] Platelet Morphology Normal Normal Normal [facility] Comment on above: Performed By: #### D IFF CBC, ESR ####[place] [id number] [facility] Platelets (Bld) [#/Vol] 238 10*3/uL Normal 150-450 [facility] Comment on above: Performed By: #### D IFF CBC, ESR ####[place] [id number] [facility] Poikilocytosis Slight Normal [facility] Comment on above: Performed By: #### D IFF CBC, ESR ####[address] [place] [address] [place] Polychromasia Slight Normal [facility] Comment on above: Performed By: #### D IFF CBC, ESR ####[address] RBC (Bld) [#/Vol] 3.19 10*6/uL Low 3.90-5.60 [facility] Comment on above: Performed By: #### D IFF CBC, ESR ####[address] Rouleaux Slight Normal [facility] Comment on above: Performed By: #### D IFF CBC, ESR ####[address] Segmented neutrophils/100 WBC (Bld) 51 % Normal 50-70 [facility] Comment on above: Performed By: #### D IFF CBC, ESR ####[address] Tear Drop Cells Slight Normal [facility] Comment on above: Performed By: #### D IFF CBC, ESR ####[address] WBC (Bld) [#/Vol] 6.1 10*3/uL Normal 4.1-10.5 [facility] Comment on above: Performed By: #### D IFF CBC, ESR ####[address] Erythrocyte Sedimentation Ra kunal 08-27-2023 ESR (Bld) [Velocity] 103 mm/h High 0-19 [facility] Comment on above: Result Comment: PERF ORMED BY:[address] [place], [place] [phone] MEDICAL JAKE MCWILLIAMS M.D. Performed By: #### D IFF CBC, ESR ####[place] [id number] [facility] Erythrocyte sedimentation ra te by Photometric methodOrdered By: Denice Dahl on 08-27-2023 ESR Photometric method (Bld) [Velocity] 103 mm/hr High 0-19 [facility] Glucose Poct Glucometerson 0 08-27-2023 Glucose [Mass/Vol] 335 mg/dL Normal [facility] Comment on above: Result Comment: [place] om Glucose Reference Range is dependent on time and content of last meal. Glucose of more than 200 mg/dL in a nonstressed, ambulatory subject supports the diagnosis of Diabetes Mellitus.PERFORMED BY:[place] [address] [address] [place], [place] [phone] MEDICAL DIRECTORDEAN MCWILLIAMS M.D. Performed By: #### G LULS ####Point of Care testing, Glucose [Mass/Vol] 380 mg/dL Normal [facility] Comment on above: Result Comment: [place] om Glucose Reference Range is dependent on time and content of last meal. Glucose of more than 200 mg/dL in a nonstressed, ambulatory subject supports the diagnosis of Diabetes Mellitus.PERFORMED BY:[place] [address], [place] [phone] MEDICAL DIRECTORDEAN MCWILLIAMS M.D. Performed By: #### G LULS ####Point of Care testing, Commemt1 Glu2: Cleaned Meter Normal [facility] Comment on above: Result Comment: PERF ORMED BY:[place] [address] [place], [place] [phone] MEDICAL DIRECTORDEAN MCWILLIAMS M.D. Performed By: #### G LULS ####Point of Care testing, Glucose [Mass/Vol] 154 mg/dL Normal [facility] Comment on above: Result Comment: [place] om Glucose Reference Range is dependent on time and content of last meal. Glucose of more than 200 mg/dL in a nonstressed, ambulatory subject supports the diagnosis of Diabetes Mellitus. Performed By: #### G LULS ####Point of Care testing, Commemt1 Glu2: Cleaned Meter Normal [facility] Comment on above: Result Comment: PERF ORMED BY:[address] [place], [place] [phone] MEDICAL DIRECTORDEAN MCWILLIAMS M.D. Performed By: #### G JOSHLS ####Point of Care testing, Glucose [Mass/Vol] 130 mg/dL Normal [facility] Comment on above: Result Comment: [place] Glucose Reference Range is dependent on time and content of last meal. Glucose of more than 200 mg/dL in a nonstressed, ambulatory subject supports the diagnosis of Diabetes Mellitus. Performed By: #### G LULS ####Point of Care testing, MR foot RT wo conon 08-27-19 24 MR foot RT wo con Normal [facility] Rouleaux detectionOrdered By : Denice Dahl on 08-27-2023 Rouleaux LM Ql (Bld) Slight [facility] Teardrop cell detectionOrder ed By: Denice Dahl on 08-27-2023 Dacrocytes LM Ql (Bld) Slight [facility] A1C with Estimated Average G luon 08-26-2023 Glucose [Mass/Vol] 209 mg/dL Normal [facility] Comment on above: Result Comment: PERF ORMED BY:[place] [address] [place], [place] [phone] MEDICAL DIRECTORDEAN MCWILLIAMS M.D. Performed By: #### A 1C WTH eA ####[address] [address] [facility] Bacteria identified Aer cx N om (Unsp spec)Ordered By: Denice Dahl on 08-26-2023 Superficial Wound Culture Proteus mirabilis Abnormal [facility] C-Reactive Proteinon 024 C-Reactive Protein 27.4 mg/dL High 0.0-0.5 [facility] Comment on above: Result Comment: PERF ORMED BY:[place] [address] [place], [place] [phone] MEDICAL JAKE MCWILLIAMS M.D. Performed By: #### C RP, ESR, CMP, CBC, MG ####[address] [address] [facility] Complete Blood Count Auto Di ffon 08-26-2023 Basophils (Bld) [#/Vol] 0.1 10*3/uL Normal 0.0-0.2 [facility] Comment on above: Performed By: #### C RP, ESR, CMP, CBC, MG ####[address] Basophils/100 WBC (Bld) 0.7 % Normal . [facility] Comment on above: Performed By: #### C RP, ESR, CMP, CBC, MG ####[address] Eosinophils (Bld) [#/Vol] 0.1 10*3/uL Normal 0.0-0.45 [facility] Comment on above: Performed By: #### C RP, ESR, CMP, CBC, MG ####[address] Eosinophils/100 WBC (Bld) 1.2 % Normal . [facility] Comment on above: Performed By: #### C RP, ESR, CMP, CBC, MG ####[address] Erythrocyte distribution width (RBC) [Ratio] 18.3 % High 12.0-14.8 [facility] Comment on above: Performed By: #### C RP, ESR, CMP, CBC, MG ####[address] Hematocrit (Bld) [Volume fraction] 30.9 % Low 38.8-50.0 [facility] Comment on above: Performed By: #### C RP, ESR, CMP, CBC, MG ####[address] Hemoglobin (Bld) [Mass/Vol] 10.2 g/dL Low 13.0-17.0 [facility] Comment on above: Performed By: #### C RP, ESR, CMP, CBC, MG ####[address] Lymphocytes (Bld) [#/Vol] 0.3 10*3/uL Low 1.00-4.8 [facility] Comment on above: Performed By: #### C RP, ESR, CMP, CBC, MG ####[address] Lymphocytes/100 WBC (Bld) 3.7 % Normal . [facility] Comment on above: Performed By: #### C RP, ESR, CMP, CBC, MG ####[address] MCH (RBC) [Entitic mass] 28.4 pg Normal 27.5-35.2 [facility] Comment on above: Performed By: #### C RP, ESR, CMP, CBC, MG ####[address] MCV (RBC) [Entitic vol] 86.3 fL Normal 83.5-101 [facility] Comment on above: Performed By: #### C RP, ESR, CMP, CBC, MG ####[address] Mean Corpuscular HGB Conc 32.9 g/dL Normal 32.5-35.6 [facility] Comment on above: Performed By: #### C RP, ESR, CMP, CBC, MG ####[address] Monocytes (Bld) [#/Vol] 0.9 10*3/uL High 0.0-0.8 [facility] Comment on above: Performed By: #### C RP, ESR, CMP, CBC, MG ####[address] Monocytes/100 WBC (Bld) 10.7 % Normal . [facility] Comment on above: Performed By: #### C RP, ESR, CMP, CBC, MG ####[address] Neutrophils (Bld) [#/Vol] 7.1 10*3/uL Normal 1.8-7.7 [facility] Comment on above: Performed By: #### C RP, ESR, CMP, CBC, MG ####[address] Neutrophils/100 WBC (Bld) 83.7 % Normal . [facility] Comment on above: Performed By: #### C RP, ESR, CMP, CBC, MG ####[address] NRBC% 0.0 /100{WBC} Normal 0-0.5 [facility] Comment on above: Performed By: #### C RP, ESR, CMP, CBC, MG ####[address] Platelet mean volume (Bld) [Entitic vol] 7.7 fL Normal 6.6-10.1 [facility] Comment on above: Performed By: #### C RP, ESR, CMP, CBC, MG ####[address] Platelets (Bld) [#/Vol] 226 10*3/uL Normal 150-450 [facility] Comment on above: Performed By: #### C RP, ESR, CMP, CBC, MG ####[address] RBC (Bld) [#/Vol] 3.58 10*6/uL Low 3.90-5.60 [facility] Comment on above: Performed By: #### C RP, ESR, CMP, CBC, MG ####[address] WBC (Bld) [#/Vol] 8.5 10*3/uL Normal 4.1-10.5 [facility] Comment on above: Performed By: #### C RP, ESR, CMP, CBC, MG ####[address] Comprehensive Metabolic Pane raghu 08-26-2023 Albumin [Mass/Vol] 3.0 g/dL Low 3.5-5.7 [facility] Comment on above: Performed By: #### C RP, ESR, CMP, CBC, MG ####[place] [id number] [place] [id number] [facility] Albumin/Globulin [Mass ratio] 0.8 {ratio} Normal [facility] Comment on above: Performed By: #### C RP, ESR, CMP, CBC, MG ####[place] [address] [place] [id number] [facility] ALP [Catalytic activity/Vol] 62 U/L Normal 34-104 [facility] Comment on above: Performed By: #### C RP, ESR, CMP, CBC, MG ####[place] [phone] [facility] ALT [Catalytic activity/Vol] 15 U/L Normal 7-52 [facility] Comment on above: Performed By: #### C RP, ESR, CMP, CBC, MG ####[address] Anion gap [Moles/Vol] 17.3 mmol/L High 6.0-15.0 [facility] Comment on above: Performed By: #### C RP, ESR, CMP, CBC, MG ####[place] [phone] [facility] AST [Catalytic activity/Vol] 29 U/L Normal 13-39 [facility] Comment on above: Performed By: #### C RP, ESR, CMP, CBC, MG ####[place] [id number] [facility] Bilirubin [Mass/Vol] 0.8 mg/dL Normal 0.3-1.0 [facility] Comment on above: Performed By: #### C RP, ESR, CMP, CBC, MG ####[place] [id number] [facility] Calcium [Mass/Vol] 9.5 mg/dL Normal 8.6-10.3 [facility] Comment on above: Performed By: #### C RP, ESR, CMP, CBC, MG ####[place] [id number] [facility] Chloride [Moles/Vol] 92 mmol/L Low 98-107 [facility] Comment on above: Performed By: #### C RP, ESR, CMP, CBC, MG ####[address] CO2 [Moles/Vol] 28.9 mmol/L Normal 21.0-31.0 [facility] Comment on above: Performed By: #### C RP, ESR, CMP, CBC, MG ####[address] Creatinine [Mass/Vol] 10.52 mg/dL Significan t change up 0.70-1.30 [facility] Comment on above: Performed By: #### C RP, ESR, CMP, CBC, MG ####[address] Creatinine Clr Calc Pharmacy 7.26 Normal [facility] Comment on above: Performed By: #### C RP, ESR, CMP, CBC, MG ####[address] GFR/1.73 sq M.predicted MDRD (S/P/Bld) [Vol rate/Area] 4.898 mL/min/{1.73_m2} Normal [facility] Comment on above: Performed By: #### C RP, ESR, CMP, CBC, MG ####[address] Globulin (S) [Mass/Vol] 3.8 g/dL Normal [facility] Comment on above: Performed By: #### C RP, ESR, CMP, CBC, MG ####[address] Glucose [Mass/Vol] 174 mg/dL Significant change up 70-100 [facility] Comment on above: Result Comment: [place] Glucose Reference Range is dependent on time and content of last meal. Glucose of more than 200 mg/dL in a nonstressed, ambulatory subject supports the diagnosis of Diabetes Mellitus. ADA recommended reference range Performed By: #### C RP, ESR, CMP, CBC, MG ####[place] [id number] [place] Potassium [Moles/Vol] 5.2 mmol/L High 3.5-5.1 [facility] Comment on above: Performed By: #### C RP, ESR, CMP, CBC, MG ####[place] [id number] Protein [Mass/Vol] 6.8 g/dL Normal 6.4-8.9 [facility] Comment on above: Performed By: #### C RP, ESR, CMP, CBC, MG ####[address] Sodium [Moles/Vol] 133 mmol/L Significant change down 136-145 [facility] Comment on above: Performed By: #### C RP, ESR, CMP, CBC, MG ####[address] Urea nitrogen [Mass/Vol] 45 mg/dL High 7-25 [facility] Comment on above: Performed By: #### C RP, ESR, CMP, CBC, MG ####[address] ECG 12 lead ECGon 08-26-2023 ECG 12 lead ECG Normal [facility] Erythrocyte Sedimentation Ra kunal 08-26-2023 ESR (Bld) [Velocity] 86 mm/h High 0-19 [facility] Comment on above: Result Comment: PERF ORMED BY:[place] [address] [place], [place] [phone] MEDICAL JAKE MCWILLIAMS M.D. Performed By: #### C RP, ESR, CMP, CBC, MG ####[place] [id number] [facility] Glucose Poct Glucometerson 0 08-26-2023 Glucose [Mass/Vol] 360 mg/dL Normal [facility] Comment on above: Result Comment: [facility] Glucose Reference Range is dependent on time and content of last meal. Glucose of more than 200 mg/dL in a nonstressed, ambulatory subject supports the diagnosis of Diabetes Mellitus.PERFORMED BY:[place] [address] [address] [place], [place] [phone] MEDICAL DIRECTORDEAN MCWILLIAMS M.D. Performed By: #### G LULS ####Point of Care testing, Glucose [Mass/Vol] 111 mg/dL Normal [facility] Comment on above: Result Comment: [place] om Glucose Reference Range is dependent on time and content of last meal. Glucose of more than 200 mg/dL in a nonstressed, ambulatory subject supports the diagnosis of Diabetes Mellitus.PERFORMED BY:[address] [place], [place] [phone] MEDICAL DIRECTORDEAN MCWILLIAMS M.D. Performed By: #### G LULS ####Point of Care testing, Commemt1 Glu2: Cleaned Meter Normal [facility] Comment on above: Result Comment: PERF ORMED BY:[address] [place], [place] [phone] MEDICAL DIRECTORDEAN MCWILLIAMS M.D. Performed By: #### G LULS ####Point of Care testing, Glucose [Mass/Vol] 162 mg/dL Normal [facility] Comment on above: Result Comment: [place] om Glucose Reference Range is dependent on time and content of last meal. Glucose of more than 200 mg/dL in a nonstressed, ambulatory subject supports the diagnosis of Diabetes Mellitus. Performed By: #### G LULS ####Point of Care testing, Commemt1 Glu2: Cleaned Meter Normal [facility] Comment on above: Result Comment: PERF ORMED BY:[address] [place], [place] [phone] MEDICAL DIRECTORDEAN MCWILLIAMS M.D. Performed By: #### G LULS ####Point of Care testing, Glucose [Mass/Vol] 171 mg/dL Normal [facility] Comment on above: Result Comment: [place] om Glucose Reference Range is dependent on time and content of last meal. Glucose of more than 200 mg/dL in a nonstressed, ambulatory subject supports the diagnosis of Diabetes Mellitus. Performed By: #### G LULS ####Point of Care testing, Glucose mean value [Mass/vol ume] in Blood Estimated from glycated hemoglobinOrdered By: Alon Santiago on 08-26-2023 Average glucose Estimated from glycated hemoglobin (Bld) [Mass/Vol] 209 mg/dL [facility] Hemoglobin A1c percentageOrd ered By: Alon Santiago on 08-26-2023 HbA1c (Bld) [Mass fraction] 8.9 % High 4.3-5.6 [facility] Comment on above: Increased risk for d iabetes: 5.7 - 6.4diabetes: >6.4glycemic control for adults with diabetes: <7.0 Result Comment: Incr eased risk for diabetes: 5.7 - 6.4 diabetes: >6.4 glycemic control for adults with diabetes: <7.0 Performed By: #### A 1C WT eA ####[address] Magnesium [Mass/volume] in S bushra or PlasmaOrdered By: Alon Santiago on 08-26-2023 Magnesium [Mass/Vol] 2.1 mg/dL Normal 1.9-2.7 [facility] Comment on above: Performed By: #### C RP, ESR, CMP, CBC, MG ####[facility] [address] [place] [phone] [facility] Superficial Wound Cultureon 08-26-2023 Superficial Wound Culture Normal [facility] Comment on above: Performed By: #### C USUP ####[address] US arterial pvr rest Amber US arterial pvr rest LE Normal [facility] US venous duplex LE BIon US venous duplex LE BI Normal [facility] Bacterial blood cultureOrder ed By: Alon Santiago on 08-25-2023 Bacteria identified Cx Nom (Bld) NO GROWTH 5 DAYS [facility] Bacteria identified Cx Nom (Bld) NO GROWTH 5 DAYS [facility] Blood Cultureon 08-25-2023 Bacteria identified Cx Nom (Bld) NO GROWTH 5 DAYS PERFORMED BY: [address] [place] [id number] PATHOLOGIST [employer]ER REPLACER DEAN MCWILLIAMS M.D. Normal [facility] Comment on above: Performed By: #### C UBLD ####[address] Bacteria identified Cx Nom (Bld) NO GROWTH 5 DAYS PERFORMED BY: [address] [place] [address] PATHOLOGIST [employer]ER REPLACER DEAN MCWILLIAMS M.D. Normal [facility] Comment on above: Performed By: #### C UBLD ####[address] Complete Blood Count Auto Di ffon 08-25-2023 Basophils (Bld) [#/Vol] 0.0 10*3/uL Normal 0.0-0.2 [facility] Comment on above: Result Comment: PERF ORMED BY:[address] [place], [place] [phone] MEDICAL DIRECTORDEAN MCWILLIAMS M.D. Performed By: #### C MP, CBC ####[address] Basophils/100 WBC (Bld) 0.5 % Normal . [facility] Comment on above: Performed By: #### C MP, CBC ####[address] Eosinophils (Bld) [#/Vol] 0.0 10*3/uL Normal 0.0-0.45 [facility] Comment on above: Performed By: #### C MP, CBC ####[address] Eosinophils/100 WBC (Bld) 0.2 % Normal . [facility] Comment on above: Performed By: #### C MP, CBC ####[address] Erythrocyte distribution width (RBC) [Ratio] 18.3 % High 12.0-14.8 [facility] Comment on above: Performed By: #### C MP, CBC ####[address] Hematocrit (Bld) [Volume fraction] 30.5 % Low 38.8-50.0 [facility] Comment on above: Performed By: #### C MP, CBC ####[address] Hemoglobin (Bld) [Mass/Vol] 9.8 g/dL Low 13.0-17.0 [facility] Comment on above: Performed By: #### C MP, CBC ####[address] Lymphocytes (Bld) [#/Vol] 0.3 10*3/uL Low 1.00-4.8 [facility] Comment on above: Performed By: #### C MP, CBC ####[address] Lymphocytes/100 WBC (Bld) 3.4 % Normal . [facility] Comment on above: Performed By: #### C MP, CBC ####[address] MCH (RBC) [Entitic mass] 28.0 pg Normal 27.5-35.2 [facility] Comment on above: Performed By: #### C MP, CBC ####[address] MCV (RBC) [Entitic vol] 87.9 fL Normal 83.5-101 [facility] Comment on above: Performed By: #### C MP, CBC ####[address] Mean Corpuscular HGB Conc 31.9 g/dL Low 32.5-35.6 [facility] Comment on above: Performed By: #### C MP, CBC ####[address] Monocytes (Bld) [#/Vol] 0.9 10*3/uL High 0.0-0.8 [facility] Comment on above: Performed By: #### C MP, CBC ####[address] Monocytes/100 WBC (Bld) 11.1 % Normal . [facility] Comment on above: Performed By: #### C MP, CBC ####[address] Neutrophils (Bld) [#/Vol] 6.9 10*3/uL Normal 1.8-7.7 [facility] Comment on above: Performed By: #### C MP, CBC ####[address] Neutrophils/100 WBC (Bld) 84.8 % Normal . [facility] Comment on above: Performed By: #### C MP, CBC ####[address] NRBC% 0.0 /100{WBC} Normal 0-0.5 [facility] Comment on above: Performed By: #### C MP, CBC ####[address] Platelet mean volume (Bld) [Entitic vol] 7.8 fL Normal 6.6-10.1 [facility] Comment on above: Performed By: #### C MP, CBC ####[address] Platelets (Bld) [#/Vol] 236 10*3/uL Normal 150-450 [facility] Comment on above: Performed By: #### C MP, CBC ####[place] [id number] [facility] RBC (Bld) [#/Vol] 3.48 10*6/uL Low 3.90-5.60 [facility] Comment on above: Performed By: #### C MP, CBC ####[address] WBC (Bld) [#/Vol] 8.1 10*3/uL Normal 4.1-10.5 [facility] Comment on above: Performed By: #### C MP, CBC ####[place] [id number] [facility] Comprehensive Metabolic Pane raghu 08-25-2023 Albumin [Mass/Vol] 3.3 g/dL Low 3.5-5.7 [facility] Comment on above: Performed By: #### C MP, CBC ####[place] [id number] [facility] Albumin/Globulin [Mass ratio] 0.8 {ratio} Normal [facility] Comment on above: Performed By: #### C MP, CBC ####[place] [id number] [facility] ALP [Catalytic activity/Vol] 66 U/L Normal 34-104 [facility] Comment on above: Performed By: #### C MP, CBC ####[place] [id number] [facility] ALT [Catalytic activity/Vol] 11 U/L Normal 7-52 [facility] Comment on above: Performed By: #### C MP, CBC ####[place] [id number] [facility] Anion gap [Moles/Vol] 16.6 mmol/L High 6.0-15.0 [facility] Comment on above: Performed By: #### C MP, CBC ####[place] [id number] [facility] AST [Catalytic activity/Vol] 17 U/L Normal 13-39 [facility] Comment on above: Performed By: #### C MP, CBC ####[place] [id number] [facility] Bilirubin [Mass/Vol] 0.8 mg/dL Normal 0.3-1.0 [facility] Comment on above: Performed By: #### C MP, CBC ####[place] [id number] [facility] Calcium [Mass/Vol] 10.0 mg/dL Normal 8.6-10.3 [facility] Comment on above: Performed By: #### C MP, CBC ####[address] [address] [facility] Chloride [Moles/Vol] 90 mmol/L Low 98-107 [facility] Comment on above: Performed By: #### C MP, CBC ####[address] [address] [facility] CO2 [Moles/Vol] 25.8 mmol/L Normal 21.0-31.0 [facility] Comment on above: Performed By: #### C MP, CBC ####[address] [address] [facility] Creatinine [Mass/Vol] 8.91 mg/dL High 0.70-1.30 [facility] Comment on above: Performed By: #### C MP, CBC ####[address] [address] [facility] Creatinine Clr Calc Pharmacy 9.28 Normal [facility] Comment on above: Result Comment: PERF ORMED BY:[address] [place], [place] [phone] MEDICAL JAKE MCWILLIAMS M.D. Performed By: #### C MP, CBC ####[address] [address] [facility] GFR/1.73 sq M.predicted MDRD (S/P/Bld) [Vol rate/Area] 5.978 mL/min/{1.73_m2} Normal [facility] Comment on above: Performed By: #### C MP, CBC ####[address] [address] [facility] Globulin (S) [Mass/Vol] 4.3 g/dL Normal [facility] Comment on above: Performed By: #### C MP, CBC ####[place] [id number] [facility] Glucose [Mass/Vol] 428 mg/dL High 70-100 [facility] Comment on above: Result Comment: [place] Glucose Reference Range is dependent on time and content of last meal. Glucose of more than 200 mg/dL in a nonstressed, ambulatory subject supports the diagnosis of Diabetes Mellitus. ADA recommended reference range Performed By: #### C MP, CBC ####[place] [id number] [facility] Potassium [Moles/Vol] 5.4 mmol/L High 3.5-5.1 [facility] Comment on above: Performed By: #### C MP, CBC ####[place] [id number] [facility] Protein [Mass/Vol] 7.6 g/dL Normal 6.4-8.9 [facility] Comment on above: Performed By: #### C MP, CBC ####[place] [id number] [facility] Sodium [Moles/Vol] 127 mmol/L Low 136-145 [facility] Comment on above: Performed By: #### C MP, CBC ####[place] [id number] [facility] Urea nitrogen [Mass/Vol] 37 mg/dL High 7-25 [facility] Comment on above: Performed By: #### C MP, CBC ####[place] [id number] [facility] Glucose Poct Glucometerson 0 08-25-2023 Glucose [Mass/Vol] 329 mg/dL Normal [facility] Comment on above: Result Comment: [facility] Glucose Reference Range is dependent on time and content of last meal. Glucose of more than 200 mg/dL in a nonstressed, ambulatory subject supports the diagnosis of Diabetes Mellitus.PERFORMED BY:[place] [address] [place], [place] [phone] MEDICAL DIRECTORDEAN MCWILLIAMS M.D. Performed By: #### G LULS ####Point of Care testing, Commemt1 Normal [facility] Comment on above: Result Comment: Glu2 : WILL NOTIFY DR/FRANCIERFORMED BY:[place] [address] [place], [place] [phone] MEDICAL DIRECTORDEAN MCWILLIAMS M.D. Performed By: #### G LULS ####Point of Care testing, Glucose [Mass/Vol] 441 mg/dL Off scale high [facility] Comment on above: Result Comment: [place] Glucose Reference Range is dependent on time and content of last meal. Glucose of more than 200 mg/dL in a nonstressed, ambulatory subject supports the diagnosis of Diabetes Mellitus. Performed By: #### G LULS ####Point of Care testing, Commemt1 Normal [facility] Comment on above: Result Comment: Glu2 : Will Repeat TestPERFORMED BY:[place] [address] [place], [place] [phone] MEDICAL DIRECTORDEAN MCWILLIAMS M.D. Performed By: #### G LULS ####Point of Care testing, Glucose [Mass/Vol] 420 mg/dL Off scale high [facility] Comment on above: Result Comment: [place] Glucose Reference Range is dependent on time and content of last meal. Glucose of more than 200 mg/dL in a nonstressed, ambulatory subject supports the diagnosis of Diabetes Mellitus. Performed By: #### G LULS ####Point of Care testing, Commemt1 Glu2: Cleaned Meter Normal [facility] Comment on above: Performed By: #### G LULS ####Point of Care testing, Commemt2 WILL NOTIFY DR/RN Normal [facility] Comment on above: Result Comment: PERF ORMED BY:[place] [address] [address] [place], [place] [phone] MEDICAL JAKE MCWILLIAMS M.D. Performed By: #### G LULS ####Point of Care testing, Glucose [Mass/Vol] 393 mg/dL Normal [facility] Comment on above: Result Comment: [place] Glucose Reference Range is dependent on time and content of last meal. Glucose of more than 200 mg/dL in a nonstressed, ambulatory subject supports the diagnosis of Diabetes Mellitus. Performed By: #### G LULS ####Point of Care testing, Lactate [Moles/volume] in Se rum or PlasmaOrdered By: Alon Santiago on 08-25-2023 Lactate [Moles/Vol] 1.6 mmol/L Normal 0.5-2.2 [facility] Comment on above: Result Comment: PERF ORMED BY:[place] [address] [place], [place] [phone] MEDICAL DIRECTORDEAN MCWILLIAMS M.D. Performed By: #### L ACTIC ####[place] [id number] [facility] XR foot BI 2Von 08-25-2023 XR foot BI 2V Normal [facility] Automated basophil %Ordered By: Gabriel Gould on 06-26-2023 Basophils/100 WBC (Bld) 0.6 % Normal . [facility] Comment on above: Performed By: #### B MP, MG, CBC ####[address] Automated basophil countOrde red By: Gabriel Gould on 06-26-2023 Basophils (Bld) [#/Vol] 0.0 10*3/uL Normal 0.0-0.2 [facility] Comment on above: Result Comment: PERF ORMED BY:[place] [address] [place] [place], [place] [phone] MEDICAL DIRECTORDEAN MCWILLIAMS M.D. Performed By: #### B MP, MG, CBC ####[address] Automated blood monocyte cou ntOrdered By: Gabriel Gould on 06-26-2023 Monocytes (Bld) [#/Vol] 1.6 10*3/uL High 0.0-0.8 [facility] Comment on above: Performed By: #### B MP, MG, CBC ####[address] Automated eosinophil %Ordere d By: Gabriel Gould on 06-26-2023 Eosinophils/100 WBC (Bld) 2.1 % Normal . [facility] Comment on above: Performed By: #### B MP, MG, CBC ####[facility] Automated eosinophil countOr dered By: Gabriel Gould on 06-26-2023 Eosinophils (Bld) [#/Vol] 0.2 10*3/uL Normal 0.0-0.45 [facility] Comment on above: Performed By: #### B MP, MG, CBC ####[address] Automated monocyte %Ordered By: Gabriel Gould on 06-26-2023 Monocytes/100 WBC (Bld) 19.8 % Normal . [facility] Comment on above: Performed By: #### B MP, MG, CBC ####[address] Automated neutrophil %Ordere d By: Gabriel Gould on 06-26-2023 Neutrophils/100 WBC (Bld) 65.0 % Normal . [facility] Comment on above: Performed By: #### B MP, MG, CBC ####[address] Basic Metabolic Panelon 06-11 Creatinine Clr Calc Pharmacy 10.35 Normal [facility] Comment on above: Performed By: #### B MP, MG, CBC ####[address] GFR/1.73 sq M.predicted MDRD (S/P/Bld) [Vol rate/Area] 6.692 mL/min/{1.73_m2} Normal [facility] Comment on above: Performed By: #### B MP, MG, CBC ####[address] Calcium [Mass/volume] in Ser um or PlasmaOrdered By: Gabriel Gould on 06-26-2023 Calcium [Mass/Vol] 8.9 mg/dL Normal 8.6-10.3 [facility] Comment on above: Performed By: #### B MP, MG, CBC ####[address] [address] [place] Capillary blood glucose mike urement by glucometer (mass/volume)Ordered By: Diony Devi on 06-26-2023 Glucose [Mass/Vol] 138 mg/dL Normal [facility] Comment on above: Random Glucose Refer ence Range is dependent on time and content of last meal. Glucose of more than 200 mg/dL in a nonstressed, ambulatory subject supports the diagnosis of Diabetes Mellitus. Result Comment: [place] om Glucose Reference Range is dependent on time and content of last meal. Glucose of more than 200 mg/dL in a nonstressed, ambulatory subject supports the diagnosis of Diabetes Mellitus. Performed By: #### G LULS ####Point of Care testing, Carbon dioxide, total [Moles /volume] in Serum or PlasmaOrdered By: Gabriel Gould on 06-26-2023 CO2 [Moles/Vol] 29.1 mmol/L Normal 21.0-31.0 [facility] Comment on above: Performed By: #### B MP, MG, CBC ####[address] Chloride [Moles/volume] in S bushra or PlasmaOrdered By: Gabriel Gould on 06-26-2023 Chloride [Moles/Vol] 97 mmol/L Low 98-107 [facility] Comment on above: Performed By: #### B MP, MG, CBC ####[address] Complete Blood Count Auto Di ffon 06-26-2023 Mean Corpuscular HGB Conc 33.0 g/dL Normal 32.5-35.6 [facility] Comment on above: Performed By: #### B MP, MG, CBC ####[address] NRBC% 0.0 /100{WBC} Normal 0-0.5 [facility] Comment on above: Performed By: #### B MP, MG, CBC ####[address] Creatinine [Mass/volume] in Serum or PlasmaOrdered By: Gabriel Gould on 06-26-2023 Creatinine [Mass/Vol] 8.11 mg/dL Significan t change up 0.70-1.30 [facility] Comment on above: Delta: 6.09 on 06/24 Performed By: #### B MP, MG, CBC ####[place] [address] [place] [id number] [facility] Erythrocyte distribution wid th [Ratio] by Automated countOrdered By: Gabriel Gould on 06-26-2023 Erythrocyte distribution width (RBC) [Ratio] 15.4 % High 12.0-14.8 [facility] Comment on above: Performed By: #### B MP, MG, CBC ####[address] Erythrocytes [#/volume] in B lood by Automated countOrdered By: Gabriel Gould on 06-26-2023 RBC (Bld) [#/Vol] 3.34 10*6/uL Low 3.90-5.60 [facility] Comment on above: Performed By: #### B MP, MG, CBC ####[place] [id number] [facility] Glucose Poct Glucometerson 0 06-26-2023 Commemt1 Glu2: Cleaned Meter Normal [facility] Comment on above: Result Comment: PERF ORMED BY:[place] [address] [place], [place] [phone] MEDICAL DIRECTORDEAN MCWILLIAMS M.D. Performed By: #### G LULS ####Point of Care testing, Glucose [Mass/Vol] 78 mg/dL Normal [facility] Comment on above: Result Comment: [place] Glucose Reference Range is dependent on time and content of last meal. Glucose of more than 200 mg/dL in a nonstressed, ambulatory subject supports the diagnosis of Diabetes Mellitus.PERFORMED BY:[place] [address] [place], [place] [phone] MEDICAL DIRECTORDEAN MCWILLIAMS M.D. Performed By: #### G LULS ####Point of Care testing, Glucose [Mass/volume] in Ser um or PlasmaOrdered By: Gabriel Gould on 06-26-2023 Glucose [Mass/Vol] 72 mg/dL Normal 70-100 [facility] Comment on above: ADA recommended refe rence rangeRandom Glucose Reference Range is dependent on time and content of last meal. Glucose of more than 200 mg/dL in a nonstressed, ambulatory subject supports the diagnosis of Diabetes Mellitus. Result Comment: [place] om Glucose Reference Range is dependent on time and content of last meal. Glucose of more than 200 mg/dL in a nonstressed, ambulatory subject supports the diagnosis of Diabetes Mellitus. ADA recommended reference range Performed By: #### B MP, MG, CBC ####[facility] [id number] Hematocrit [Volume Fraction] of Blood by Automated countOrdered By: Gabriel Gould on 06-26-2023 Hematocrit (Bld) [Volume fraction] 29.2 % Low 38.8-50.0 [facility] Comment on above: Performed By: #### B MP, MG, CBC ####[facility] [id number] [address] Hemoglobin [Mass/volume] in BloodOrdered By: Gabriel Gould on 06-26-2023 Hemoglobin (Bld) [Mass/Vol] 9.7 g/dL Low 13.0-17.0 [facility] Comment on above: Performed By: #### B MP, MG, CBC ####[address] Leukocytes [#/volume] correc jennifer for nucleated erythrocytes in Blood by Automated counOrdered By: Gabriel Gould on 06-26-2023 WBC corrected for nucl RBC Auto (Bld) [#/Vol] 8.1 10*3/uL 4.1-10.5 [facility] Leukocytes [#/volume] in Blo od by Automated countOrdered By: Gabriel Gould on 06-26-2023 WBC (Bld) [#/Vol] 8.1 10*3/uL Normal 4.1-10.5 [facility] Comment on above: Performed By: #### B MP, MG, CBC ####[address] Lymphocytes [#/volume] in Bl ood by Automated countOrdered By: Gabriel Gould on 06-26-2023 Lymphocytes (Bld) [#/Vol] 1.0 10*3/uL Normal 1.00-4.8 [facility] Comment on above: Performed By: #### B MP, MG, CBC ####[address] Lymphocytes/100 leukocytes i n Blood by Automated countOrdered By: Gabriel Gould on 06-26-2023 Lymphocytes/100 WBC (Bld) 12.5 % Normal . [facility] Comment on above: Performed By: #### B MP, MG, CBC ####[address] MCH [Entitic mass] by Automa jennifer countOrdered By: Gabriel Gould on 06-26-2023 MCH (RBC) [Entitic mass] 28.9 pg Normal 27.5-35.2 [facility] Comment on above: Performed By: #### B MP, MG, CBC ####[address] MCHC Auto (RBC) [Mass/Vol]Or dered By: Gabriel Gould on 06-26-2023 MCHC (RBC) [Mass/Vol] 33.0 g/dL 32.5-35.6 [facility] MCV [Entitic volume] by Auto mated countOrdered By: Gabriel Gould on 06-26-2023 MCV (RBC) [Entitic vol] 87.4 fL Normal 83.5-101 [facility] Comment on above: Performed By: #### B MP, MG, CBC ####[address] Magnesium [Mass/volume] in S bushra or PlasmaOrdered By: Gabriel Gould on 06-26-2023 Magnesium [Mass/Vol] 1.9 mg/dL Normal 1.9-2.7 [facility] Comment on above: Result Comment: PERF ORMED BY:[facility]111[facility] [place] [phone] MEDICAL DIRECTORDEAN MCWILLIAMS M.D. Performed By: #### B MP, MG, CBC ####[place] [address] [place] [id number] [facility] Neutrophils [#/volume] in Bl ood by Automated countOrdered By: Gabriel Gould on 06-26-2023 Neutrophils (Bld) [#/Vol] 5.3 10*3/uL Normal 1.8-7.7 [facility] Comment on above: Performed By: #### B MP, MG, CBC ####[place] [address] No Panel InformationOrdered By: Diony Devi on 06-26-2023 Bedside Glucose Comment Glu2: cleaned meter [facility] No Panel InformationOrdered By: Gabriel Gould on 06-26-2023 Estimated GFR (CKD-EPI) 6.692 mL/Min [facility] Creatinine Clearance (Chem 10.35 [facility] Nucleated erythrocytes [Pres ence] in Blood by Automated countOrdered By: Gabriel Gould on 06-26-2023 Nucleated RBC Auto Ql (Bld) 0.0 /100{WBC} 0-0.5 [facility] Platelet mean volume [Entiti c volume] in Blood by Automated countOrdered By: Gabriel Gould on 06-26-2023 Platelet mean volume (Bld) [Entitic vol] 7.8 fL Normal 6.6-10.1 [facility] Comment on above: Performed By: #### B MP, MG, CBC ####[place] [id number] [facility] Platelets [#/volume] in Bloo d by Automated countOrdered By: Gabriel Gould on 06-26-2023 Platelets (Bld) [#/Vol] 315 10*3/uL Normal 150-450 [facility] Comment on above: Performed By: #### B MP, MG, CBC ####[address] Potassium [Moles/volume] in Serum or PlasmaOrdered By: Gabriel Gould on 06-26-2023 Potassium [Moles/Vol] 4.3 mmol/L Normal 3.5-5.1 [facility] Comment on above: Performed By: #### B MP, MG, CBC ####[address] Serum or plasma anion gap de terminationOrdered By: Gabriel Gould on 06-26-2023 Anion gap [Moles/Vol] 6.2 mmol/L Normal 6.0-15.0 [facility] Comment on above: Performed By: #### B MP, MG, CBC ####[address] Sodium [Moles/volume] in Ser um or PlasmaOrdered By: Gabriel Gould on 06-26-2023 Sodium [Moles/Vol] 128 mmol/L Low 136-145 [facility] Comment on above: Performed By: #### B MP, MG, CBC ####[address] Urea nitrogen [Mass/volume] in Serum or PlasmaOrdered By: Gabriel Gould on 06-26-2023 Urea nitrogen [Mass/Vol] 30 mg/dL High 7-25 [facility] Comment on above: Performed By: #### B MP, MG, CBC ####[place] [id number] [facility] Aerobic Cultureon 06-25-2023 Aerobic Culture Normal [facility] Comment on above: Performed By: #### A ERC ####[place] [id number] [facility] Basic Metabolic Panelon 06-11 Anion gap [Moles/Vol] 8.7 mmol/L Normal 6.0-15.0 [facility] Comment on above: Performed By: #### M G, CBC, BMP ####[address] [place] [address] [facility] Calcium [Mass/Vol] 8.7 mg/dL Normal 8.6-10.3 [facility] Comment on above: Performed By: #### M Debbie, CBC, BMP ####[place] [address] Chloride [Moles/Vol] 95 mmol/L Low 98-107 [facility] Comment on above: Performed By: #### M Debbie, CBC, BMP ####[place] [id number] [facility] CO2 [Moles/Vol] 28.5 mmol/L Normal 21.0-31.0 [facility] Comment on above: Performed By: #### M Debbie, CBC, BMP ####[address] Creatinine [Mass/Vol] 6.09 mg/dL Significan t change up 0.70-1.30 [facility] Comment on above: Performed By: #### M Debbie, CBC, BMP ####[address] Creatinine Clr Calc Pharmacy 13.50 Normal [facility] Comment on above: Performed By: #### M Debbie, CBC, BMP ####[place] [id number] [facility] GFR/1.73 sq M.predicted MDRD (S/P/Bld) [Vol rate/Area] 9.438 mL/min/{1.73_m2} Normal [facility] Comment on above: Performed By: #### M Debbie, CBC, BMP ####[place] [id number] [facility] Glucose [Mass/Vol] 118 mg/dL High 70-100 [facility] Comment on above: Result Comment: [place] Glucose Reference Range is dependent on time and content of last meal. Glucose of more than 200 mg/dL in a nonstressed, ambulatory subject supports the diagnosis of Diabetes Mellitus. ADA recommended reference range Performed By: #### M Debbie, CBC, BMP ####[facility] [address] Potassium [Moles/Vol] 4.2 mmol/L Normal 3.5-5.1 [facility] Comment on above: Performed By: #### M G, CBC, BMP ####[address] Sodium [Moles/Vol] 128 mmol/L Low 136-145 [facility] Comment on above: Performed By: #### M G, CBC, BMP ####[address] Urea nitrogen [Mass/Vol] 21 mg/dL Normal 7-25 [facility] Comment on above: Performed By: #### M G, CBC, BMP ####[address] Complete Blood Count Auto Di ffon 06-25-2023 Basophils (Bld) [#/Vol] 0.1 10*3/uL Normal 0.0-0.2 [facility] Comment on above: Result Comment: PERF ORMED BY:[address] [place], [place] [phone] MEDICAL DIRECTORDEAN MCWILLIAMS M.D. Performed By: #### M G, CBC, BMP ####[address] Basophils/100 WBC (Bld) 1.0 % Normal . [facility] Comment on above: Performed By: #### M G, CBC, BMP ####[address] Eosinophils (Bld) [#/Vol] 0.2 10*3/uL Normal 0.0-0.45 [facility] Comment on above: Performed By: #### M G, CBC, BMP ####[address] Eosinophils/100 WBC (Bld) 3.7 % Normal . [facility] Comment on above: Performed By: #### M G, CBC, BMP ####[address] [place] [address] [place] Erythrocyte distribution width (RBC) [Ratio] 15.5 % High 12.0-14.8 [facility] Comment on above: Performed By: #### M G, CBC, BMP ####[address] Hematocrit (Bld) [Volume fraction] 30.8 % Low 38.8-50.0 [facility] Comment on above: Performed By: #### M G, CBC, BMP ####[address] Hemoglobin (Bld) [Mass/Vol] 10.3 g/dL Low 13.0-17.0 [facility] Comment on above: Performed By: #### M G, CBC, BMP ####[address] Lymphocytes (Bld) [#/Vol] 1.0 10*3/uL Normal 1.00-4.8 [facility] Comment on above: Performed By: #### Ezekiel G, CBC, BMP ####[address] Lymphocytes/100 WBC (Bld) 17.2 % Normal . [facility] Comment on above: Performed By: #### M G, CBC, BMP ####[address] MCH (RBC) [Entitic mass] 29.1 pg Normal 27.5-35.2 [facility] Comment on above: Performed By: #### M G, CBC, BMP ####[address] MCV (RBC) [Entitic vol] 87.2 fL Normal 83.5-101 [facility] Comment on above: Performed By: #### M G, CBC, BMP ####[address] Mean Corpuscular HGB Conc 33.3 g/dL Normal 32.5-35.6 [facility] Comment on above: Performed By: #### M G, CBC, BMP ####[address] [address] [facility] Monocytes (Bld) [#/Vol] 1.2 10*3/uL High 0.0-0.8 [facility] Comment on above: Performed By: #### M G, CBC, BMP ####[address] [address] [facility] Monocytes/100 WBC (Bld) 21.5 % Normal . [facility] Comment on above: Performed By: #### M G, CBC, BMP ####[place] [id number] [facility] Neutrophils (Bld) [#/Vol] 3.2 10*3/uL Normal 1.8-7.7 [facility] Comment on above: Performed By: #### Ezekiel G, CBC, BMP ####[place] [id number] [facility] Neutrophils/100 WBC (Bld) 56.6 % Normal . [facility] Comment on above: Performed By: #### Ezekiel G, CBC, BMP ####[place] [id number] [facility] NRBC% 0.1 /100{WBC} Normal 0-0.5 [facility] Comment on above: Performed By: #### M G, CBC, BMP ####[place] [id number] [facility] Platelet mean volume (Bld) [Entitic vol] 7.9 fL Normal 6.6-10.1 [facility] Comment on above: Performed By: #### M G, CBC, BMP ####[place] [id number] [facility] Platelets (Bld) [#/Vol] 276 10*3/uL Normal 150-450 [facility] Comment on above: Performed By: #### M G, CBC, BMP ####[place] [id number] [facility] RBC (Bld) [#/Vol] 3.53 10*6/uL Low 3.90-5.60 [facility] Comment on above: Performed By: #### M G, CBC, BMP ####[facility] [place] [address] [facility] WBC (Bld) [#/Vol] 5.7 10*3/uL Normal 4.1-10.5 [facility] Comment on above: Performed By: #### M G, CBC, BMP ####[facility] [place] [address] [facility] ECG 12 lead ECGon 06-25-2023 ECG 12 lead ECG Normal [facility] Glucose Poct Glucometerson 0 06-25-2023 Glucose [Mass/Vol] 135 mg/dL Normal [facility] Comment on above: Result Comment: [facility] Glucose Reference Range is dependent on time and content of last meal. Glucose of more than 200 mg/dL in a nonstressed, ambulatory subject supports the diagnosis of Diabetes Mellitus.PERFORMED BY:[address] [place], [place] [phone] MEDICAL JAKE MCWILLIAMS M.D. Performed By: #### G LULS ####Point of Care testing, Glucose [Mass/Vol] 270 mg/dL Normal [facility] Comment on above: Result Comment: [facility] Glucose Reference Range is dependent on time and content of last meal. Glucose of more than 200 mg/dL in a nonstressed, ambulatory subject supports the diagnosis of Diabetes Mellitus.PERFORMED BY:[address] [address] [place], [place] [phone] MEDICAL JAKE MCWILLIAMS M.D. Performed By: #### G LULS ####Point of Care testing, Glucose [Mass/Vol] 103 mg/dL Normal [facility] Comment on above: Result Comment: [facility] Glucose Reference Range is dependent on time and content of last meal. Glucose of more than 200 mg/dL in a nonstressed, ambulatory subject supports the diagnosis of Diabetes Mellitus.PERFORMED BY:[address] [place], [place] [phone] MEDICAL JAKE MCWILLIAMS M.D. Performed By: #### G LULS ####Point of Care testing, Commemt1 Glu2: Cleaned Meter Normal [facility] Comment on above: Result Comment: PERF ORMED BY:[place] [address] [address] [place], [place] [phone] MEDICAL DIRECTORDEAN MCWILLIAMS M.D. Performed By: #### G LULS ####Point of Care testing, Glucose [Mass/Vol] 121 mg/dL Normal [facility] Comment on above: Result Comment: [place] [facility] Glucose Reference Range is dependent on time and content of last meal. Glucose of more than 200 mg/dL in a nonstressed, ambulatory subject supports the diagnosis of Diabetes Mellitus. Performed By: #### G LULS ####Point of Care testing, Glucose [Mass/Vol] 120 mg/dL Normal [facility] Comment on above: Result Comment: [place] om Glucose Reference Range is dependent on time and content of last meal. Glucose of more than 200 mg/dL in a nonstressed, ambulatory subject supports the diagnosis of Diabetes Mellitus.PERFORMED BY:[address] [place], [place] [phone] MEDICAL DIRECTORDEAN MCWILLIAMS M.D. Performed By: #### G LULS ####Point of Care testing, Gram stain for investigation of transfusion reactionOrdered By: Felisa Win on 06-25-2023 Microscopic observation Gram stain Nom (Unsp spec) Corynebacterium striatum group Abnormal [facility] Microscopic observation Gram stain Nom (Unsp spec) Methicillin Resis Staph Aureus Abnormal [facility] Raghu 06-25-2023 L Normal [facility] Magnesiumon 06-25-2023 Magnesium [Mass/Vol] 1.9 mg/dL Normal 1.9-2.7 [facility] Comment on above: Result Comment: PERF ORMED BY:[address] [place], [place] [phone] MEDICAL DIRECTORDEAN MCWILLIAMS M.D. Performed By: #### M G, CBC, BMP ####[facility] [place] [id number] [facility] Basic Metabolic Panelon 05 Anion gap [Moles/Vol] 15.1 mmol/L High 6.0-15.0 [facility] Comment on above: Performed By: #### SIGIFREDO Bae, CBC ####[place] [id number] [facility] Calcium [Mass/Vol] 9.0 mg/dL Normal 8.6-10.3 [facility] Comment on above: Performed By: #### SIGIFREDO Bae, CBC ####[place] [id number] [facility] Chloride [Moles/Vol] 93 mmol/L Low 98-107 [facility] Comment on above: Performed By: #### SIGIFREDO Bae, CBC ####[place] [id number] [facility] CO2 [Moles/Vol] 29.0 mmol/L Normal 21.0-31.0 [facility] Comment on above: Performed By: #### SIGIFREDO Bae, CBC ####[place] [id number] [facility] Creatinine [Mass/Vol] 9.61 mg/dL Significan t change up 0.70-1.30 [facility] Comment on above: Performed By: #### SIGIFREDO Bae, CBC ####[place] [id number] [facility] Creatinine Clr Calc Pharmacy 8.55 Normal [facility] Comment on above: Performed By: #### SIGIFREDO Bae, CBC ####[place] [id number] [place] GFR/1.73 sq M.predicted MDRD (S/P/Bld) [Vol rate/Area] 5.459 mL/min/{1.73_m2} Normal [facility] Comment on above: Performed By: #### SIGIFREDO Bae, CBC ####[place] [id number] [facility] Glucose [Mass/Vol] 66 mg/dL Significant change down 70-100 [facility] Comment on above: Result Comment: [facility] Glucose Reference Range is dependent on time and content of last meal. Glucose of more than 200 mg/dL in a nonstressed, ambulatory subject supports the diagnosis of Diabetes Mellitus. ADA recommended reference range Performed By: #### SIGIFREDO Bae, CBC ####[place] [id number] [facility] Potassium [Moles/Vol] 4.1 mmol/L Normal 3.5-5.1 [facility] Comment on above: Performed By: #### SIGIFREDO Bae, CBC ####[address] Sodium [Moles/Vol] 133 mmol/L Significant change down 136-145 [facility] Comment on above: Performed By: #### SIGIFREDO Bae, CBC ####[place] [id number] [facility] Urea nitrogen [Mass/Vol] 42 mg/dL High 7-25 [facility] Comment on above: Performed By: #### SIGIFREDO Bae, CBC ####[place] [id number] [facility] Complete Blood Count Auto Di ffon 06-24-2023 Basophils (Bld) [#/Vol] 0.0 10*3/uL Normal 0.0-0.2 [facility] Comment on above: Result Comment: PERF ORMED BY:[address] [place], [place] [phone] MEDICAL DIRECTORDEAN MCWILLIAMS M.D. Performed By: #### SIGIFREDO Bae, CBC ####[place] [id number] [facility] Basophils/100 WBC (Bld) 0.7 % Normal . [facility] Comment on above: Performed By: #### SIGIFREDO Bae, CBC ####[place] [id number] [facility] Eosinophils (Bld) [#/Vol] 0.2 10*3/uL Normal 0.0-0.45 [facility] Comment on above: Performed By: #### M G, BMP, CBC ####[place] [id number] [facility] Eosinophils/100 WBC (Bld) 3.4 % Normal . [facility] Comment on above: Performed By: #### M G, BMP, CBC ####[address] Erythrocyte distribution width (RBC) [Ratio] 15.3 % High 12.0-14.8 [facility] Comment on above: Performed By: #### Ezekiel Lewis, BMP, CBC ####[address] Hematocrit (Bld) [Volume fraction] 28.9 % Low 38.8-50.0 [facility] Comment on above: Performed By: #### Ezekiel Lewis, BMP, CBC ####[address] Hemoglobin (Bld) [Mass/Vol] 9.7 g/dL Low 13.0-17.0 [facility] Comment on above: Performed By: #### Ezekiel Lewis BMP, CBC ####[address] Lymphocytes (Bld) [#/Vol] 1.1 10*3/uL Normal 1.00-4.8 [facility] Comment on above: Performed By: #### Ezekiel Lewis, BMP, CBC ####[place] [id number] [facility] Lymphocytes/100 WBC (Bld) 17.4 % Normal . [facility] Comment on above: Performed By: #### Ezekiel Lewis, BMP, CBC ####[place] [id number] [facility] MCH (RBC) [Entitic mass] 29.2 pg Normal 27.5-35.2 [facility] Comment on above: Performed By: #### Ezekiel G, BMP, CBC ####[place] [id number] [facility] MCV (RBC) [Entitic vol] 86.8 fL Normal 83.5-101 [facility] Comment on above: Performed By: #### M G, BMP, CBC ####[address] Mean Corpuscular HGB Conc 33.6 g/dL Normal 32.5-35.6 [facility] Comment on above: Performed By: #### M G, BMP, CBC ####[address] Monocytes (Bld) [#/Vol] 1.4 10*3/uL High 0.0-0.8 [facility] Comment on above: Performed By: #### Ezekiel Lewis, BMP, CBC ####[address] Monocytes/100 WBC (Bld) 22.5 % Normal . [facility] Comment on above: Performed By: #### Ezekiel Lewis, BMP, CBC ####[address] Neutrophils (Bld) [#/Vol] 3.6 10*3/uL Normal 1.8-7.7 [facility] Comment on above: Performed By: #### Ezekiel Lewis BMP, CBC ####[address] Neutrophils/100 WBC (Bld) 56.0 % Normal . [facility] Comment on above: Performed By: #### Ezekiel Lewis, BMP, CBC ####[address] NRBC% 0.1 /100{WBC} Normal 0-0.5 [facility] Comment on above: Performed By: #### M G, BMP, CBC ####[address] Platelet mean volume (Bld) [Entitic vol] 7.6 fL Normal 6.6-10.1 [facility] Comment on above: Performed By: #### Ezekiel G, BMP, CBC ####[address] Platelets (Bld) [#/Vol] 270 10*3/uL Normal 150-450 [facility] Comment on above: Performed By: #### M SIGIFREDO Lewis, CBC ####[address] RBC (Bld) [#/Vol] 3.33 10*6/uL Low 3.90-5.60 [facility] Comment on above: Performed By: #### SIGIFREDO Bae, CBC ####[address] WBC (Bld) [#/Vol] 6.4 10*3/uL Normal 4.1-10.5 [facility] Comment on above: Performed By: #### SIGIFREDO Bae, CBC ####[address] ECH echo transthoracicon ECH echo transthoracic Normal [facility] Glucose Poct Glucometerson 0 06-24-2023 Glucose [Mass/Vol] 161 mg/dL Normal [facility] Comment on above: Result Comment: [place] om Glucose Reference Range is dependent on time and content of last meal. Glucose of more than 200 mg/dL in a nonstressed, ambulatory subject supports the diagnosis of Diabetes Mellitus.PERFORMED BY:[address] [address] [place], [place] [phone] MEDICAL DIRECTORDEAN MCWILLIAMS M.D. Performed By: #### G LULS ####Point of Care testing, Commemt1 Glu2: Cleaned Meter Normal [facility] Comment on above: Result Comment: PERF ORMED BY:[address] [place], [place] [phone] MEDICAL DIRECTORDEAN MCWILLIAMS M.D. Performed By: #### G LULS ####Point of Care testing, Glucose [Mass/Vol] 279 mg/dL Normal [facility] Comment on above: Result Comment: [place] om Glucose Reference Range is dependent on time and content of last meal. Glucose of more than 200 mg/dL in a nonstressed, ambulatory subject supports the diagnosis of Diabetes Mellitus. Performed By: #### G LULS ####Point of Care testing, Glucose [Mass/Vol] 151 mg/dL Normal [facility] Comment on above: Result Comment: [facility] Glucose Reference Range is dependent on time and content of last meal. Glucose of more than 200 mg/dL in a nonstressed, ambulatory subject supports the diagnosis of Diabetes Mellitus.PERFORMED BY:[address] [address] [address] [place], [place] [phone] MEDICAL DIRECTORDEAN MCWILLIAMS M.D. Performed By: #### G LULS ####Point of Care testing, Glucose [Mass/Vol] 73 mg/dL Normal [facility] Comment on above: Result Comment: [facility] Glucose Reference Range is dependent on time and content of last meal. Glucose of more than 200 mg/dL in a nonstressed, ambulatory subject supports the diagnosis of Diabetes Mellitus.PERFORMED BY:[address] [place], [place] [phone] MEDICAL DIRECTORDEAN MCWILLIAMS M.D. Performed By: #### G LULS ####Point of Care testing, Magnesiumon 06-24-2023 Magnesium [Mass/Vol] 2.2 mg/dL Normal 1.9-2.7 [facility] Comment on above: Result Comment: PERF ORMED BY:[place] [address] [address] [place], [place] [phone] MEDICAL DIRECTORDEAN MCWILLIAMS M.D. Performed By: #### M G, BMP, CBC ####[address] [address] [facility] Anisocytosis [Presence] in B lood by Light microscopyOrdered By: Gabriel Gould on 06-23-2023 Anisocytosis Ql (Bld) Slight Normal [facility] Comment on above: Performed By: #### D IFF CBC, MG, BMP ####[address] [address] [facility] Bacterial blood cultureOrder ed By: Mary Ruffin on 06-23-2023 Bacteria identified Cx Nom (Bld) NO GROWTH 5 DAYS [facility] Bacteria identified Cx Nom (Bld) NO GROWTH 5 DAYS [facility] Basic Metabolic Panelon 06-11 Anion gap [Moles/Vol] 13.5 mmol/L Normal 6.0-15.0 [facility] Comment on above: Performed By: #### D IFF CBC, MG, BMP ####[address] Calcium [Mass/Vol] 8.8 mg/dL Normal 8.6-10.3 [facility] Comment on above: Performed By: #### D IFF CBC, MG, BMP ####[address] Chloride [Moles/Vol] 90 mmol/L Low 98-107 [facility] Comment on above: Performed By: #### D IFF CBC, MG, BMP ####[address] CO2 [Moles/Vol] 27.2 mmol/L Normal 21.0-31.0 [facility] Comment on above: Performed By: #### D IFF CBC, MG, BMP ####[address] Creatinine [Mass/Vol] 7.95 mg/dL Significan t change up 0.70-1.30 [facility] Comment on above: Performed By: #### D IFF CBC, MG, BMP ####[address] Creatinine Clr Calc Pharmacy 10.35 Normal [facility] Comment on above: Performed By: #### D IFF CBC, MG, BMP ####[address] GFR/1.73 sq M.predicted MDRD (S/P/Bld) [Vol rate/Area] 6.854 mL/min/{1.73_m2} Normal [facility] Comment on above: Performed By: #### D IFF CBC, MG, BMP ####[address] Glucose [Mass/Vol] 181 mg/dL High 70-100 [facility] Comment on above: Result Comment: [facility] Glucose Reference Range is dependent on time and content of last meal. Glucose of more than 200 mg/dL in a nonstressed, ambulatory subject supports the diagnosis of Diabetes Mellitus. ADA recommended reference range Performed By: #### D IFF CBC, MG, BMP ####[place] [id number] [facility] Potassium [Moles/Vol] 3.7 mmol/L Normal 3.5-5.1 [facility] Comment on above: Performed By: #### D IFF CBC, MG, BMP ####[address] Sodium [Moles/Vol] 127 mmol/L Low 136-145 [facility] Comment on above: Performed By: #### D IFF CBC, MG, BMP ####[address] Urea nitrogen [Mass/Vol] 34 mg/dL High 7-25 [facility] Comment on above: Performed By: #### D IFF CBC, MG, BMP ####[place] [id number] [place] Basophils/100 leukocytes in Blood by Manual countOrdered By: Gabriel Gould on 06-23-2023 Basophils/100 WBC (Bld) 1 % Normal 0-2 [facility] Comment on above: Performed By: #### D IFF CBC, MG, BMP ####[place] [id number] [facility] Blood Cultureon 06-23-2023 Bacteria identified Cx Nom (Bld) NO GROWTH 5 DAYS PERFORMED BY: [facility] [address] [place] [id number] PATHOLOGIST LINER REPLACER DEAN MCWILLIAMS M.D. Normal [facility] Comment on above: Performed By: #### C UBLD ####[place] [id number] [facility] Bacteria identified Cx Nom (Bld) NO GROWTH 5 DAYS PERFORMED BY: [facility] [address] [place] [address] PATHOLOGIST LINER REPLACER DEAN MCWILLIAMS M.D. Normal [facility] Comment on above: Performed By: #### C UBLD ####[address] [place] cells [Presence] in Blo od by Light microscopyOrdered By: Gabriel Gould on 06-23-2023 [place] cells LM Ql (Bld) Slight Fi [facility] Diff and CBCon 06-23-2023 Crenated RBC Slight Normal [facility] Comment on above: Performed By: #### D IFF CBC, MG, BMP ####[address] Erythrocyte distribution width (RBC) [Ratio] 15.4 % High 12.0-14.8 [facility] Comment on above: Performed By: #### D IFF CBC, MG, BMP ####[address] Hematocrit (Bld) [Volume fraction] 29.3 % Low 38.8-50.0 [facility] Comment on above: Performed By: #### D IFF CBC, MG, BMP ####[address] Hemoglobin (Bld) [Mass/Vol] 9.8 g/dL Low 13.0-17.0 [facility] Comment on above: Performed By: #### D IFF CBC, MG, BMP ####[address] MCH (RBC) [Entitic mass] 29.4 pg Normal 27.5-35.2 [facility] Comment on above: Performed By: #### D IFF CBC, MG, BMP ####[address] MCV (RBC) [Entitic vol] 87.8 fL Normal 83.5-101 [facility] Comment on above: Performed By: #### D IFF CBC, MG, BMP ####[place] [address] [place] [address] [facility] Mean Corpuscular HGB Conc 33.5 g/dL Normal 32.5-35.6 [facility] Comment on above: Performed By: #### D IFF CBC, MG, BMP ####[address] [address] [facility] Metamyelocytes 1 % High 0-0 [facility] Comment on above: Performed By: #### D IFF CBC, MG, BMP ####[place] [phone] [facility] Myelocytes 1 % High 0-0 [facility] Comment on above: Performed By: #### D IFF CBC, MG, BMP ####[place] [phone] [facility] Platelet Estimate Normal Normal Normal [facility] Comment on above: Performed By: #### D IFF CBC, MG, BMP ####[place] [id number] [facility] Platelet mean volume (Bld) [Entitic vol] 7.8 fL Normal 6.6-10.1 [facility] Comment on above: Performed By: #### D IFF CBC, MG, BMP ####[place] [id number] [facility] Platelet Morphology Normal Normal Normal [facility] Comment on above: Result Comment: PERF ORMED BY:[address] [place], [place] [phone] MEDICAL DIRECTORDEAN MCWILLIAMS M.D. Performed By: #### D IFF CBC, MG, BMP ####[address] [address] [facility] Platelets (Bld) [#/Vol] 277 10*3/uL Normal 150-450 [facility] Comment on above: Performed By: #### D IFF CBC, MG, BMP ####[address] [address] [facility] Polychromasia Slight Normal [facility] Comment on above: Performed By: #### D IFF CBC, MG, BMP ####[place] [address] RBC (Bld) [#/Vol] 3.34 10*6/uL Low 3.90-5.60 [facility] Comment on above: Performed By: #### D IFF CBC, MG, BMP ####[place] [address] [place] [id number] [facility] WBC (Bld) [#/Vol] 5.6 10*3/uL Normal 4.1-10.5 [facility] Comment on above: Performed By: #### D IFF CBC, MG, BMP ####[address] ECG 12 lead ECGon 06-23-2023 ECG 12 lead ECG Normal [facility] Eosinophils/100 leukocytes i n Blood by Manual countOrdered By: Gabriel Gould on 06-23-2023 Eosinophils/100 WBC (Bld) 3 % Normal 1-3 [facility] Comment on above: Performed By: #### D IFF CBC, MG, BMP ####[address] Glucose Poct Glucometerson 0 06-23-2023 Glucose [Mass/Vol] 295 mg/dL Normal [facility] Comment on above: Result Comment: [facility] Glucose Reference Range is dependent on time and content of last meal. Glucose of more than 200 mg/dL in a nonstressed, ambulatory subject supports the diagnosis of Diabetes Mellitus.PERFORMED BY:[address] [place], [place] [phone] MEDICAL JAKE MCWILLIAMS M.D. Performed By: #### G LULS ####Point of Care testing, Glucose [Mass/Vol] 107 mg/dL Normal [facility] Comment on above: Result Comment: [facility] Glucose Reference Range is dependent on time and content of last meal. Glucose of more than 200 mg/dL in a nonstressed, ambulatory subject supports the diagnosis of Diabetes Mellitus.PERFORMED BY:[address] [place], [place] [phone] MEDICAL DIRECTORDEAN MCWILLIAMS M.D. Performed By: #### G LULS ####Point of Care testing, Glucose [Mass/Vol] 265 mg/dL Normal [facility] Comment on above: Result Comment: [facility] Glucose Reference Range is dependent on time and content of last meal. Glucose of more than 200 mg/dL in a nonstressed, ambulatory subject supports the diagnosis of Diabetes Mellitus.PERFORMED BY:[place] [address] [place], [place] [phone] MEDICAL DIRECTORDEAN MCWILLIAMS M.D. Performed By: #### G LULS ####Point of Care testing, Glucose [Mass/Vol] 173 mg/dL Normal [facility] Comment on above: Result Comment: [facility] Glucose Reference Range is dependent on time and content of last meal. Glucose of more than 200 mg/dL in a nonstressed, ambulatory subject supports the diagnosis of Diabetes Mellitus.PERFORMED BY:[place] [address] [place], [place] [phone] MEDICAL JAKE MCWILLIAMS M.D. Performed By: #### G LULS ####Point of Care testing, Lymphocytes/100 leukocytes i n Blood by Manual countOrdered By: Gabriel Gould on 06-23-2023 Lymphocytes/100 WBC (Bld) 15 % Low 18-42 [facility] Comment on above: Performed By: #### D IFF CBC, MG, BMP ####[address] [address] [facility] Magnesiumon 06-23-2023 Magnesium [Mass/Vol] 2.1 mg/dL Normal 1.9-2.7 [facility] Comment on above: Result Comment: PERF ORMED BY:[place] [address] [place] [place] [phone] MEDICAL JAKE MCWILLIAMS M.D. Performed By: #### D IFF CBC, MG, BMP ####[address] [address] [facility] Manual blood segmented neutr ophils/100 leukocytesOrdered By: Gabriel Gould on 06-23-2023 Segmented neutrophils/100 WBC (Bld) 65 % Normal 50-70 [facility] Comment on above: Performed By: #### D IFF CBC, MG, BMP ####[facility] [id number] [place] [address] [facility] Metamyelocytes/100 WBC Manua l cnt (Bld)Ordered By: Gabriel Gould on 06-23-2023 Metamyelocytes/100 WBC (Bld) 1 % High 0-0 [facility] Monocytes/100 leukocytes in Blood by Manual countOrdered By: Gabriel Gould on 06-23-2023 Monocytes/100 WBC (Bld) 15 % High 2-11 [facility] Comment on above: Performed By: #### D IFF CBC, MG, BMP ####[facility] [address] [place] [address] [facility] Myelocytes/100 WBC Manual cn t (Bld)Ordered By: Gabriel Gould on 06-23-2023 Myelocytes/100 WBC (Bld) 1 % High 0-0 [facility] Platelet adequacy [Presence] in Blood by Light microscopyOrdered By: Gabriel Gould on 06-23-2023 Platelets LM Ql (Bld) Normal Normal [facility] Platelet morphology finding [Identifier] in BloodOrdered By: Gabriel Gould on 06-23-2023 Platelet morphology finding Nom (Bld) Normal Normal [facility] Polychromasia [Presence] in Blood by Light microscopyOrdered By: Gabriel Gould on 06-23-2023 Polychromasia LM Ql (Bld) Slight [facility] RBC morphologyOrdered By: Chadd Gould on 06-23-2023 RBC morphology finding Nom (Bld) N/A [facility] Bacteria identified Aer cx N om (Unsp spec)Ordered By: Roney Aparicio on 06-22-2023 Superficial Wound Culture Methicillin Resis Staph Aureus Abnormal [facility] Basic Metabolic Panelon 06-11 Anion gap [Moles/Vol] 11.2 mmol/L Normal 6.0-15.0 [facility] Comment on above: Performed By: #### C BC, MG, BMP ####[place] [address] Calcium [Mass/Vol] 8.9 mg/dL Normal 8.6-10.3 [facility] Comment on above: Performed By: #### C BC, MG, BMP ####[place] [address] Chloride [Moles/Vol] 93 mmol/L Low 98-107 [facility] Comment on above: Performed By: #### C BC, MG, BMP ####[place] [address] CO2 [Moles/Vol] 30.6 mmol/L Normal 21.0-31.0 [facility] Comment on above: Performed By: #### C BC, MG, BMP ####[address] Creatinine [Mass/Vol] 5.87 mg/dL Significan t change up 0.70-1.30 [facility] Comment on above: Performed By: #### C BC, MG, BMP ####[address] Creatinine Clr Calc Pharmacy 14.01 Normal [facility] Comment on above: Performed By: #### C BC, MG, BMP ####[place] [id number] [facility] GFR/1.73 sq M.predicted MDRD (S/P/Bld) [Vol rate/Area] 9.864 mL/min/{1.73_m2} Normal [facility] Comment on above: Performed By: #### C BC, MG, BMP ####[address] Glucose [Mass/Vol] 268 mg/dL High 70-100 [facility] Comment on above: Result Comment: [place] om Glucose Reference Range is dependent on time and content of last meal. Glucose of more than 200 mg/dL in a nonstressed, ambulatory subject supports the diagnosis of Diabetes Mellitus. ADA recommended reference range Performed By: #### C BC, MG, BMP ####[place] [id number] [facility] Potassium [Moles/Vol] 3.8 mmol/L Normal 3.5-5.1 [facility] Comment on above: Performed By: #### C BC, MG, BMP ####[address] Sodium [Moles/Vol] 131 mmol/L Low 136-145 [facility] Comment on above: Performed By: #### C BC, MG, BMP ####[place] [address] Urea nitrogen [Mass/Vol] 22 mg/dL Normal 7-25 [facility] Comment on above: Performed By: #### C BC, MG, BMP ####[address] Complete Blood Count Auto Di ffon 06-22-2023 Basophils (Bld) [#/Vol] 0.0 10*3/uL Normal 0.0-0.2 [facility] Comment on above: Result Comment: PERF ORMED BY:[address] [place], [place] [phone] MEDICAL DIRECTORDEAN MCWILLIAMS M.D. Performed By: #### C BC, MG, BMP ####[address] Basophils/100 WBC (Bld) 0.9 % Normal . [facility] Comment on above: Performed By: #### C BC, MG, BMP ####[place] [id number] [facility] Eosinophils (Bld) [#/Vol] 0.1 10*3/uL Normal 0.0-0.45 [facility] Comment on above: Performed By: #### C BC, MG, BMP ####[address] Eosinophils/100 WBC (Bld) 2.9 % Normal . [facility] Comment on above: Performed By: #### C BC, MG, BMP ####[address] Erythrocyte distribution width (RBC) [Ratio] 15.1 % High 12.0-14.8 [facility] Comment on above: Performed By: #### C BC, MG, BMP ####[address] Hematocrit (Bld) [Volume fraction] 29.5 % Low 38.8-50.0 [facility] Comment on above: Performed By: #### C BC, MG, BMP ####[address] Hemoglobin (Bld) [Mass/Vol] 9.7 g/dL Low 13.0-17.0 [facility] Comment on above: Performed By: #### C BC, MG, BMP ####[address] Lymphocytes (Bld) [#/Vol] 0.6 10*3/uL Low 1.00-4.8 [facility] Comment on above: Performed By: #### C BC, MG, BMP ####[address] Lymphocytes/100 WBC (Bld) 12.4 % Normal . [facility] Comment on above: Performed By: #### C BC, MG, BMP ####[address] MCH (RBC) [Entitic mass] 29.0 pg Normal 27.5-35.2 [facility] Comment on above: Performed By: #### C BC, MG, BMP ####[address] MCV (RBC) [Entitic vol] 88.4 fL Normal 83.5-101 [facility] Comment on above: Performed By: #### C BC, MG, BMP ####[address] Mean Corpuscular HGB Conc 32.8 g/dL Normal 32.5-35.6 [facility] Comment on above: Performed By: #### C BC MG, BMP ####[address] Monocytes (Bld) [#/Vol] 1.5 10*3/uL High 0.0-0.8 [facility] Comment on above: Performed By: #### C BC MG, BMP ####[address] Monocytes/100 WBC (Bld) 30.2 % Normal . [facility] Comment on above: Performed By: #### C BC MG, BMP ####[address] Neutrophils (Bld) [#/Vol] 2.7 10*3/uL Normal 1.8-7.7 [facility] Comment on above: Performed By: #### C BC MG, BMP ####[address] Neutrophils/100 WBC (Bld) 53.6 % Normal . [facility] Comment on above: Performed By: #### C BC MG, BMP ####[address] NRBC% 0.2 /100{WBC} Normal 0-0.5 [facility] Comment on above: Performed By: #### C BC, MG, BMP ####[address] Platelet mean volume (Bld) [Entitic vol] 7.4 fL Normal 6.6-10.1 [facility] Comment on above: Performed By: #### C BC, MG, BMP ####[address] Platelets (Bld) [#/Vol] 236 10*3/uL Normal 150-450 [facility] Comment on above: Performed By: #### C BC MG, BMP ####[address] RBC (Bld) [#/Vol] 3.34 10*6/uL Low 3.90-5.60 [facility] Comment on above: Performed By: #### C BC, MG, BMP ####[place] [address] [place] [id number] [facility] WBC (Bld) [#/Vol] 4.9 10*3/uL Normal 4.1-10.5 [facility] Comment on above: Performed By: #### C BC, MG, BMP ####[place] [address] [place] [id number] [facility] Glucose Poct Glucometerson 0 06-22-2023 Glucose [Mass/Vol] 319 mg/dL Normal [facility] Comment on above: Result Comment: [place] om Glucose Reference Range is dependent on time and content of last meal. Glucose of more than 200 mg/dL in a nonstressed, ambulatory subject supports the diagnosis of Diabetes Mellitus.PERFORMED BY:[address] [place], [place] [phone] MEDICAL DIRECTORDEAN MCWILLIAMS M.D. Performed By: #### G LULS ####Point of Care testing, Commemt1 Glu2: Cleaned Meter Normal [facility] Comment on above: Result Comment: PERF ORMED BY:[place] [address] [address] [place], [place] [phone] MEDICAL DIRECTORDEAN MCWILLIAMS M.D. Performed By: #### G LULS ####Point of Care testing, Glucose [Mass/Vol] 106 mg/dL Normal [facility] Comment on above: Result Comment: [place] om Glucose Reference Range is dependent on time and content of last meal. Glucose of more than 200 mg/dL in a nonstressed, ambulatory subject supports the diagnosis of Diabetes Mellitus. Performed By: #### G LULS ####Point of Care testing, Commemt1 Glu2: Cleaned Meter Normal [facility] Comment on above: Result Comment: PERF ORMED BY:[place] [address] [address] [place], [place] [phone] MEDICAL DIRECTORDEAN MCWILLIAMS M.D. Performed By: #### G LULS ####Point of Care testing, Glucose [Mass/Vol] 140 mg/dL Normal [facility] Comment on above: Result Comment: [place] om Glucose Reference Range is dependent on time and content of last meal. Glucose of more than 200 mg/dL in a nonstressed, ambulatory subject supports the diagnosis of Diabetes Mellitus. Performed By: #### G LULS ####Point of Care testing, Glucose [Mass/Vol] 260 mg/dL Normal [facility] Comment on above: Result Comment: [place] om Glucose Reference Range is dependent on time and content of last meal. Glucose of more than 200 mg/dL in a nonstressed, ambulatory subject supports the diagnosis of Diabetes Mellitus.PERFORMED BY:[address] RODRIGUEZBensonElodiaADEIND[place], [place] [phone] MEDICAL DIRECTORDEAN MCWILLIAMS M.D. Performed By: #### G LULS ####Point of Care testing, Magnesiumon 06-22-2023 Magnesium [Mass/Vol] 2.1 mg/dL Normal 1.9-2.7 [facility] Comment on above: Result Comment: PERF ORMED BY:[address] [place], [place] [phone] MEDICAL DIRECTORDEAN MCWILLIAMS M.D. Performed By: #### C BC, MG, BMP ####[place] [id number] [facility] Superficial Wound Cultureon 06-22-2023 Superficial Wound Culture Normal [facility] Comment on above: Performed By: #### C USUP ####[place] [id number] [facility] Alanine aminotransferase [En zymatic activity/volume] in Serum or PlasmaOrdered By: Philip Chatman on 06-21-2023 ALT [Catalytic activity/Vol] 21 U/L Normal 7-52 [facility] Comment on above: Performed By: #### C BC, CUBLD, CMP, LACTIC, ESR, CRP ####[address] Albumin [Mass/volume] in Ser um or Plasma by Bromocresol green (BCG) dye binding methoOrdered By: Philip Chatman on 06-21-2023 Albumin BCG dye [Mass/Vol] 3.3 g/dL Low 3.5-5.7 [facility] Alkaline phosphatase [Enzyma tic activity/volume] in Serum or PlasmaOrdered By: Philip Chamtan on 06-21-2023 ALP [Catalytic activity/Vol] 64 U/L Normal 34-104 [facility] Comment on above: Performed By: #### C BC, CUBLD, CMP, LACTIC, ESR, CRP ####[address] Aspartate aminotransferase [ Enzymatic activity/volume] in Serum or PlasmaOrdered By: Philip Chatman on 06-21-2023 AST [Catalytic activity/Vol] 35 U/L Normal 13-39 [facility] Comment on above: Performed By: #### C BC, CUBLD, CMP, LACTIC, ESR, CRP ####[address] Automated basophil %Ordered By: Philip Chatman on 06-21-2023 Basophils/100 WBC (Bld) 0.6 % Normal . [facility] Comment on above: Performed By: #### C BC, CUBLD, CMP, LACTIC, ESR, CRP ####[address] Automated basophil countOrde red By: Philip Chatman on 06-21-2023 Basophils (Bld) [#/Vol] 0.0 10*3/uL Normal 0.0-0.2 [facility] Comment on above: Performed By: #### C BC, CUBLD, CMP, LACTIC, ESR, CRP ####[address] Automated blood monocyte cou ntOrdered By: Philip Chatman on 06-21-2023 Monocytes (Bld) [#/Vol] 1.2 10*3/uL High 0.0-0.8 [facility] Comment on above: Performed By: #### C BC, CUBLD, CMP, LACTIC, ESR, CRP ####[facility] Automated eosinophil %Ordere d By: Philip Chatman on 06-21-2023 Eosinophils/100 WBC (Bld) 1.1 % Normal . [facility] Comment on above: Performed By: #### C BC, CUBLD, CMP, LACTIC, ESR, CRP ####[address] Automated eosinophil countOr dered By: Philip Chatman on 06-21-2023 Eosinophils (Bld) [#/Vol] 0.1 10*3/uL Normal 0.0-0.45 [facility] Comment on above: Performed By: #### C BC, CUBLD, CMP, LACTIC, ESR, CRP ####[address] Automated monocyte %Ordered By: Philip Chatman on 06-21-2023 Monocytes/100 WBC (Bld) 16.2 % Normal . [facility] Comment on above: Performed By: #### C BC, CUBLD, CMP, LACTIC, ESR, CRP ####[address] Automated neutrophil %Ordere d By: Philip Chatman on 06-21-2023 Neutrophils/100 WBC (Bld) 74.6 % Normal . [facility] Comment on above: Performed By: #### C BC, CUBLD, CMP, LACTIC, ESR, CRP ####[address] Bacterial blood cultureOrder ed By: Philip Chatman on 06-21-2023 Bacteria identified Cx Nom (Bld) Methicillin Resis Staph Aureus Abnormal [facility] Bilirubin.total [Mass/volume ] in Serum or PlasmaOrdered By: Philip Chatman on 06-21-2023 Bilirubin [Mass/Vol] 1.0 mg/dL Normal 0.3-1.0 [facility] Comment on above: Performed By: #### C BC, CUBLD, CMP, LACTIC, ESR, CRP ####[address] Blood Cultureon 06-21-2023 Bacteria identified Cx Nom (Bld) Normal [facility] Comment on above: Performed By: #### C BC, CUBLD, CMP, LACTIC, ESR, CRP ####[place] [id number] [facility] Bacteria identified Cx Nom (Bld) Normal [facility] Comment on above: Performed By: #### C BC, CUBLD, CMP, LACTIC, ESR, CRP ####[place] [id number] [facility] C reactive protein [Mass/vol ume] in Serum or PlasmaOrdered By: Philip Chatman on 06-21-2023 CRP [Mass/Vol] 25.6 mg/dL High 0.0-0.5 [facility] C-Reactive Proteinon 024 C-Reactive Protein 25.6 mg/dL High 0.0-0.5 [facility] Comment on above: Result Comment: PERF ORMED BY:[address] [place], [place] [phone] MEDICAL DIRECTORDEAN MCWILLIAMS M.D. Performed By: #### C BC, CUBLD, CMP, LACTIC, ESR, CRP ####[place] [id number] [facility] Calcium [Mass/volume] in Ser um or PlasmaOrdered By: Philip Chatman on 06-21-2023 Calcium [Mass/Vol] 9.4 mg/dL Normal 8.6-10.3 [facility] Comment on above: Performed By: #### C BC, CUBLD, CMP, LACTIC, ESR, CRP ####[place] [id number] [facility] Carbon dioxide, total [Moles /volume] in Serum or PlasmaOrdered By: Philip Chatman on 06-21-2023 CO2 [Moles/Vol] 30.6 mmol/L Normal 21.0-31.0 [facility] Comment on above: Performed By: #### C BC, CUBLD, CMP, LACTIC, ESR, CRP ####[address] [address] [place] Chloride [Moles/volume] in S bushra or PlasmaOrdered By: Philip Chatman on 06-21-2023 Chloride [Moles/Vol] 92 mmol/L Low 98-107 [facility] Comment on above: Performed By: #### C BC, CUBLD, CMP, LACTIC, ESR, CRP ####[address] Complete Blood Count Auto Di ffon 06-21-2023 Mean Corpuscular HGB Conc 33.5 g/dL Normal 32.5-35.6 [facility] Comment on above: Performed By: #### C BC, CUBLD, CMP, LACTIC, ESR, CRP ####[address] Monocytes/100 WBC (Bld) 24.17 % High 0.00-20.00 [facility] Comment on above: Result Comment: For adults in ED, MDW > 20.0 may be associated with a higher risk of sepsis during the first 12 hrs of hospital admission Performed By: #### C BC, CUBLD, CMP, LACTIC, ESR, CRP ####[address] NRBC% 0.1 /100{WBC} Normal 0-0.5 [facility] Comment on above: Performed By: #### C BC, CUBLD, CMP, LACTIC, ESR, CRP ####[address] Comprehensive Metabolic Pane raghu 06-21-2023 Albumin [Mass/Vol] 3.3 g/dL Low 3.5-5.7 [facility] Comment on above: Performed By: #### C BC, CUBLD, CMP, LACTIC, ESR, CRP ####[address] Creatinine Clr Calc Pharmacy 18.34 Normal [facility] Comment on above: Performed By: #### C BC, CUBLD, CMP, LACTIC, ESR, CRP ####[address] GFR/1.73 sq M.predicted MDRD (S/P/Bld) [Vol rate/Area] 13.678 mL/min/{1.73_m2} Normal [facility] Comment on above: Performed By: #### C BC, CUBLD, CMP, LACTIC, ESR, CRP ####[place] [id number] [facility] Creatinine [Mass/volume] in Serum or PlasmaOrdered By: Philip Chatman on 06-21-2023 Creatinine [Mass/Vol] 4.47 mg/dL High 0.70-1.30 [facility] Comment on above: Performed By: #### C BC, CUBLD, CMP, LACTIC, ESR, CRP ####[place] [id number] [facility] Erythrocyte Sedimentation Ra kunal 06-21-2023 ESR (Bld) [Velocity] 97 mm/h High 0-19 [facility] Comment on above: Result Comment: PERF ORMED BY:[address] [place], [place] [phone] MEDICAL DIRECTORDEAN MCWILLIAMS M.D. Performed By: #### C BC, CUBLD, CMP, LACTIC, ESR, CRP ####[place] [id number] [facility] Erythrocyte distribution wid th [Ratio] by Automated countOrdered By: Philip Chatman on 06-21-2023 Erythrocyte distribution width (RBC) [Ratio] 15.3 % High 12.0-14.8 [facility] Comment on above: Performed By: #### C BC, CUBLD, CMP, LACTIC, ESR, CRP ####[place] [id number] [facility] Erythrocyte sedimentation ra te by Photometric methodOrdered By: Philip Chatman on 06-21-2023 ESR Photometric method (Bld) [Velocity] 97 mm/hr High 0-19 [facility] Erythrocytes [#/volume] in B lood by Automated countOrdered By: Philip Chatman on 06-21-2023 RBC (Bld) [#/Vol] 3.83 10*6/uL Low 3.90-5.60 [facility] Comment on above: Performed By: #### C BC, CUBLD, CMP, LACTIC, ESR, CRP ####[place] [address] [place] [id number] [facility] Glucose Poct Glucometerson 0 06-21-2023 Glucose [Mass/Vol] 222 mg/dL Normal [facility] Comment on above: Result Comment: [place] om Glucose Reference Range is dependent on time and content of last meal. Glucose of more than 200 mg/dL in a nonstressed, ambulatory subject supports the diagnosis of Diabetes Mellitus.PERFORMED BY:[address] [place], [place] [phone] MEDICAL DIRECTORDEAN MCWILLIAMS M.D. Performed By: #### G DARLENE ####Point of Care testing, Glucose [Mass/volume] in Ser um or PlasmaOrdered By: Philip Chatman on 06-21-2023 Glucose [Mass/Vol] 178 mg/dL High 70-100 [facility] Comment on above: ADA recommended refe rence rangeRandom Glucose Reference Range is dependent on time and content of last meal. Glucose of more than 200 mg/dL in a nonstressed, ambulatory subject supports the diagnosis of Diabetes Mellitus. Result Comment: [place] om Glucose Reference Range is dependent on time and content of last meal. Glucose of more than 200 mg/dL in a nonstressed, ambulatory subject supports the diagnosis of Diabetes Mellitus. ADA recommended reference range Performed By: #### C BC, CUBLD, CMP, LACTIC, ESR, CRP ####[place] [address] [place] [id number] [facility] Hematocrit [Volume Fraction] of Blood by Automated countOrdered By: Philip Chatman on 06-21-2023 Hematocrit (Bld) [Volume fraction] 33.5 % Low 38.8-50.0 [facility] Comment on above: Performed By: #### C BC, CUBLD, CMP, LACTIC, ESR, CRP ####[place] [address] [place] [id number] [facility] Hemoglobin [Mass/volume] in BloodOrdered By: Philip Chatman on 06-21-2023 Hemoglobin (Bld) [Mass/Vol] 11.2 g/dL Low 13.0-17.0 [facility] Comment on above: Performed By: #### C BC, CUBLD, CMP, LACTIC, ESR, CRP ####[facility] [place] [address] [facility] Lactate [Moles/volume] in Se rum or PlasmaOrdered By: Philip Chatman on 06-21-2023 Lactate [Moles/Vol] 2.5 mmol/L High 0.5-2.2 [facility] Comment on above: Critical Result : Ca lled to and read back by: RONALD JIN at: 06/22/2023 00:18:18 by:[id number] Lactate [Moles/Vol] 2.0 mmol/L Off scale high 0.5-2.2 [facility] Comment on above: Critical Result : Ca lled to and read back by: GRETEL DELGADO at: 06/21/2023 20:15:23 by:[id number] Result Comment: Crit ical Result : Called to and read back by: GRETEL DELGADO at: 06/21/2023 20:15:23 by:[id number] BY:[place] [address] [address] [place], [place] [phone] MEDICAL DIRECTORDEAN MCWILLIAMS M.D. Performed By: #### C BC, CUBLD, CMP, LACTIC, ESR, CRP ####[place] [address] [place] [address] [facility] Lactic Acid Reflexon 024 Lactic Acid Reflex 2.5 mmol/L Off scale high 0.5-2.2 [facility] Comment on above: Result Comment: Crit ical Result : Called to and read back by: RONALD JIN at: 06/22/2023 00:18:18 by:[id number] BY:[address] [place], [place] [phone] MEDICAL DIRECTORDEAN MCWILLIAMS M.D. Performed By: #### L ACTIC RFX ####[address] Leukocytes [#/volume] correc jennifer for nucleated erythrocytes in Blood by Automated counOrdered By: Philip Chatman on 06-21-2023 WBC corrected for nucl RBC Auto (Bld) [#/Vol] 7.3 10*3/uL 4.1-10.5 [facility] Leukocytes [#/volume] in Blo od by Automated countOrdered By: Philip Chatman on 06-21-2023 WBC (Bld) [#/Vol] 7.3 10*3/uL Normal 4.1-10.5 [facility] Comment on above: Performed By: #### C BC, CUBLD, CMP, LACTIC, ESR, CRP ####[address] Lymphocytes [#/volume] in Bl ood by Automated countOrdered By: Philip Chatman on 06-21-2023 Lymphocytes (Bld) [#/Vol] 0.5 10*3/uL Low 1.00-4.8 [facility] Comment on above: Performed By: #### C BC, CUBLD, CMP, LACTIC, ESR, CRP ####[address] Lymphocytes/100 leukocytes i n Blood by Automated countOrdered By: Philip Chatman on 06-21-2023 Lymphocytes/100 WBC (Bld) 7.5 % Normal . [facility] Comment on above: Performed By: #### C BC, CUBLD, CMP, LACTIC, ESR, CRP ####[address] MCH [Entitic mass] by Automa jennifer countOrdered By: Philip Chatman on 06-21-2023 MCH (RBC) [Entitic mass] 29.3 pg Normal 27.5-35.2 [facility] Comment on above: Performed By: #### C BC, CUBLD, CMP, LACTIC, ESR, CRP ####[address] MCHC Auto (RBC) [Mass/Vol]Or dered By: Philip Chatman on 06-21-2023 MCHC (RBC) [Mass/Vol] 33.5 g/dL 32.5-35.6 [facility] MCV [Entitic volume] by Auto mated countOrdered By: Philip Chatman on 06-21-2023 MCV (RBC) [Entitic vol] 87.4 fL Normal 83.5-101 [facility] Comment on above: Performed By: #### C BC, CUBLD, CMP, LACTIC, ESR, CRP ####[facility] [id number] Monocyte distribution width [Entitic volume] in Blood by AutomatedOrdered By: Philip Chatman on 06-21-2023 Monocyte distribution width Auto (Bld) [Entitic vol] 24.17 % High 0.00-20.00 [facility] Comment on above: For adults in ED, MD W > 20.0 may be associated with a higher risk of sepsis during the first 12 hrs of hospital admission Neutrophils [#/volume] in Bl ood by Automated countOrdered By: Philip Chatman on 06-21-2023 Neutrophils (Bld) [#/Vol] 5.4 10*3/uL Normal 1.8-7.7 [facility] Comment on above: Performed By: #### C BC, CUBLD, CMP, LACTIC, ESR, CRP ####[facility] [id number] No Panel InformationOrdered By: Philip Chatman on 06-21-2023 Bacterial ID (NA Multiplex Assay) Methicillin Resis Staph Aureus Abnormal [facility] Estimated GFR (CKD-EPI) 13.678 mL/Min [facility] Creatinine Clearance (Chem 18.34 [facility] Nucleated erythrocytes [Pres ence] in Blood by Automated countOrdered By: Philip Chatman on 06-21-2023 Nucleated RBC Auto Ql (Bld) 0.1 /100{WBC} 0-0.5 [facility] Platelet mean volume [Entiti c volume] in Blood by Automated countOrdered By: Philip Chatman on 06-21-2023 Platelet mean volume (Bld) [Entitic vol] 7.4 fL Normal 6.6-10.1 [facility] Comment on above: Performed By: #### C BC, CUBLD, CMP, LACTIC, ESR, CRP ####[address] Platelets [#/volume] in Bloo d by Automated countOrdered By: Philip Chatman on 06-21-2023 Platelets (Bld) [#/Vol] 311 10*3/uL Normal 150-450 [facility] Comment on above: Performed By: #### C BC, CUBLD, CMP, LACTIC, ESR, CRP ####[address] Potassium [Moles/volume] in Serum or PlasmaOrdered By: Philip Chatman on 06-21-2023 Potassium [Moles/Vol] 4.0 mmol/L Normal 3.5-5.1 [facility] Comment on above: Performed By: #### C BC, CUBLD, CMP, LACTIC, ESR, CRP ####[address] Protein [Mass/volume] in Ser um or PlasmaOrdered By: Philip Chatman on 06-21-2023 Protein [Mass/Vol] 8.3 g/dL Normal 6.4-8.9 [facility] Comment on above: Performed By: #### C BC, CUBLD, CMP, LACTIC, ESR, CRP ####[address] Serum globulin measurement b y calculation (mass/volume)Ordered By: Philip Chatman on 06-21-2023 Globulin (S) [Mass/Vol] 5.0 g/dL [facility] Comment on above: Performed By: #### C BC, CUBLD, CMP, LACTIC, ESR, CRP ####[place] [id number] [facility] Serum or plasma albumin/glob ulin mass ratioOrdered By: Philip Chatman on 06-21-2023 Albumin/Globulin [Mass ratio] 0.7 {ratio} [facility] Comment on above: Performed By: #### C BC, CUBLD, CMP, LACTIC, ESR, CRP ####[address] [place] [address] [facility] Serum or plasma anion gap de terminationOrdered By: Philip Chatman on 06-21-2023 Anion gap [Moles/Vol] 13.4 mmol/L Normal 6.0-15.0 [facility] Comment on above: Performed By: #### C BC, CUBLD, CMP, LACTIC, ESR, CRP ####[facility] [place] [id number] [facility] Sodium [Moles/volume] in Ser um or PlasmaOrdered By: Philip Compa on 06-21-2023 Sodium [Moles/Vol] 132 mmol/L Low 136-145 [facility] Comment on above: Performed By: #### C BC, CUBLD, CMP, LACTIC, ESR, CRP ####[facility] [place] [address] [facility] US PVR Lower EXT Complete Bi laton 06-21-2023 US PVR Lower EXT Complete Bilat Exam Date/Time: 06/18/2023 13:19 EDT Reason for Exam: I70.223;Other (please specify) Report IMPRESSION: THE RIGHT ANKLE-BRACHIAL INDEX IS NORMAL AT REST. THE LEFT ANKLE BRACHIAL INDEX IS CONSISTENT WITH MILD DISEASE IN THE LEG. CLINICAL HISTORY: I70.223. Diabetes. Wounds of the feet. COMMENT: On the right, the high thigh pressure is >255, the low thigh pressure is 185 , the calf pressure is >255, the posterior tibial ankle pressure is 164 , the dorsalis pedis ankle pressure is 173 , and the digit pressure is 173 . The low thigh-brachial index is 1.08, with normal 1.0 or greater. The ankle-brachial index at the posterior tibial artery is 0.95 and at the dorsalis pedis is 1.01, with normal 1.0 or greater. The toe-brachial index is 1.01, with normal 0.7 or greater. The plethysmography waveforms are mildly to moderately abnormal. On the left, the brachial systolic pressure is 172 , the high thigh pressure is >255, the low thigh pressure is 210 , the calf pressure is >255, the posterior tibial ankle pressure is 156 , the dorsalis pedis ankle pressure is 153 , and the digit pressure is 50. The low thigh-brachial index is 1.22, with normal 1.0 or greater. The ankle-brachial index at the posterior tibial artery is 0.91 and at the dorsalis pedis is 0.89, with normal 1.0 or greater. The toe-brachial index is 0.29, with normal 0.7 or greater. The plethysmography waveforms are mildly to moderately abnormal. Ordering Provider: Greg Alarcon FINAL REPORT Dictated: 06/21/2023 11:16 am Seth Berger M.D. Signed (Electronic Signature): 06/21/2023 11:16 am Signed by: Seth Berger M.D. Transcribed by: JASPREET Technologist: TK Normal [facility] Urea nitrogen [Mass/volume] in Serum or PlasmaOrdered By: Philip Chatman on 06-21-2023 Urea nitrogen [Mass/Vol] 13 mg/dL Normal - [facility] Comment on above: Performed By: #### C BC, CUBLD, CMP, LACTIC, ESR, CRP ####[facility] [id number] [place] [address] [facility] XR foot LT min 3V*on 024 XR foot LT min 3V* Normal [facility] Consent for Treatmenton Consent for Treatment [id number]#[id number] Normal [facility] Physician Orderon 05-29-2023 Physician Order [id number]#1.00TIFF Normal [facility] Consent for Treatmenton 05-12 Consent for Treatment [id number]#1.00TIFF Normal [facility] Heart and Vascular Office/Cl inic Noteon 05-27-2023 Heart and Vascular Office/Clinic Note Chief Complaint Cannilation with Venous elevelated venous pressure History of Present Illness 67-year-old gentleman with end-stage renal disease on dialysis through a right radiocephalic fistula. He has been using the fistula for dialysis with elevated venous pressure. He is here to discuss fistulogram. Also he has bilateral lower extremity wounds nonhealing. He had a PVR done in [facility]. Will obtain those to review and interpret. Review of Systems PHQ Score Initial Depression Screen Score: 0 SCORE Constitutional: no fever, no chills, no sweats, no weakness Skin: no Jaundice, no rash, no lesions, nopetechiae ENMT: no ear pain, no sore throat, no congestion, no hoarseness Respiratory: no shortness of breath, no cough, no orthopnea, no wheezing Cardiovascular: no chest pain, no palpitations, no edema Gastrointestinal: no nausea, no vomiting, no diarrhea, no GI bleeding Genitourinary: no dysuria, no hematuria, no discharge, no pain Musculoskeletal: no back pain, no trauma Neurologic: no headache, no dizziness, no numbness, no weakness Psychiatric: no sleeping problems, no irritability, no mood swings/depression. Heme/Lymph: no bleeding tendency, no bruising tendency, no petechiae, no swollen nodes Allergy/Immunologic: no seasonal allergies, no food allergies, no recurrent infections, no impaired immunity Additional ROS info: Except as noted in the above Review of Systems and in the History of Present Illness all other systems have been reviewed and are negative or noncontributory. Physical Exam General: alert, no acute distress Skin: warm, dry Head: no trauma, normocephalic Neck: Trachea midline, no adenopathy, no tenderness Eye: normal conjunctiva, sclera clear Cardiovascular: regular rate and rhythm, normal peripheral perfusion Respiratory: Lungs CTA, respirations non labored Chest wall: no deformity. Gastrointestinal: soft, non distended, no tenderness, no guarding. Back: No tenderness, Normal ROM, Normal alignment. Extremities: no edema,no deformity, no trauma Neurological: oriented x 4, LOC appropriate for age, motor strength equal & normal bilaterally, sensation equal & normal bilaterally, speech normal Psychiatric: cooperative, affect appropriate for age, normal judgement, normal psychiatric thoughts. Assessment/Plan 1. ESRD on dialysis (N18.6: End stage renal disease) Fistulogram and intervention of the right upper extremity 2. Critical limb ischemia of both lower extremities (I70.223: Atherosclerosis of [place] arteries of extremities with rest pain, bilateral legs) Will obtain PVR that he had from filings Dependence on renal dialysis (Z99.2: Dependence on renal dialysis) Follow-up No qualifying data available Problem List/Past Medical History Ongoing Acute non-ST segment elevation myocardial infarction Acute systolic heart failure Coronary arteriosclerosis Coronary artery disease Diabetes Diabetes mellitus Dyspnea Dysuria Edema of lower extremity Electrocardiogram abnormal ESRD (end stage renal disease) on dialysis Essential hypertension Fatigue Hyperlipidemia Hypertension Hypothyroid Left ventricular hypertrophy MRSA (methicillin resistant staph aureus) culture positive Neuropathy due to diabetes mellitus Pseudophakia Thrombophlebitis Venous insufficiency of leg Venous stasis ulcer of leg Historical Anemia Congestive heart failure Hyperlipidemia Palpitations Thrombosis of superficial vein of lower limb Procedure/Surgical History Arteriovenous fistula (07/16/2022), Insertion of hemodialysis catheter (07/02/2022), Fistulogram with contrast (03/15/2022), Fluoroscopic fistulogram with contrast (11/02/2021), Fistulogram with contrast (08/04/2020), Removal of catheter (07/07/2020), MULTI SLIDE MACHINE TENDER (06/16/2020), AV - Creation of arteriovenous fistula (03/31/2020), AV fistula recirculation (08/06/2019), Abdominal hernia, Cholecystectomy, H/O: tracheostomy, Placement of stent in cardiac conduit. Medications acetaminophen 325 mg Tab, 650 mg= 2 tab(s), Oral, q6hr, PRN aspirin 81 mg Chew Tab, 81 mg= 1 tab(s), Chewed, Daily atorvastatin 40 mg Tab, 40 mg= 1 tab(s), Oral, Daily Celebrate Multivitamin, See Instructions heparin flush 100 units/mL Soln 5 mL, 100 unit(s), IV, q24hr insulin isophane-insulin regular, 14 unit(s), SubCutaneous, BIDAC insulin lispro 100 units/mL injectable solution, 0-10 Units, SubCutaneous, QIDACHS midodrine 5 mg Tab, 5 mg= 1 tab(s), Oral, As Directed polyethylene glycol 3350, 17 gm, Oral, Daily, PRN Synthroid 100 mcg Tab, 100 mcg= 1 tab(s), Oral, Daily vancomycin, PHARMACY TO DOSE, IV, As Directed Vitamin B Complex oral capsule, 1 cap(s), Oral, Daily Allergies Brilinta (Unknown) Coban Bandage (Rash) Social History Alcohol - Denies Alcohol Use, 07/29/2019 Substance Abuse - Denies Substance Abuse, 07/29/2019 Tobacco - Denies Tobacco Use, 07/29/2019 Never (less than 100 in lifetime) Tobacco Use:. Never Smokeless T (more content not included)... Normal [facility] Comment on above: Result Comment: Elec tronically Signed By: Dorian FISH, Greg Lopez\.br\Date and Time Signed: 05/27/23 09:41 EDT Outside Radiologyon 05-27-19 24 Outside Radiology [id number]#1.00TIFF Normal [facility] Outside Radiology [id number]#1.00TIFF Normal [facility] Physician Orderon 05-27-2023 Physician Order [id number]#1.00TIFF Normal [facility] No Panel Informationon 04-22 C-Reactive Protein, Quantitative 2.85 mg/dL [facility] Basic Metabolic Panelon Creatinine Clr Calc Pharmacy 13.63 Normal [facility] Comment on above: Result Comment: PERF ORMED BY:[address] [place], [place] [phone] MEDICAL DIRECTORDEAN MCWILLIAMS M.D. Performed By: #### B MP ####[address] [place] [address] [facility] GFR/1.73 sq M.predicted MDRD (S/P/Bld) [Vol rate/Area] 8.416 mL/min/{1.73_m2} Normal [facility] Comment on above: Performed By: #### B MP ####[address] [address] [place] Calcium [Mass/volume] in Ser um or PlasmaOrdered By: Alon Santiago on 04-16-2023 Calcium [Mass/Vol] 9.0 mg/dL Normal 8.6-10.3 [facility] Comment on above: Performed By: #### B MP ####[address] [address] [facility] Capillary blood glucose mike urement by glucometer (mass/volume)Ordered By: Alon Santiago on 04-16-2023 Glucose [Mass/Vol] 188 mg/dL Normal [facility] Comment on above: Random Glucose Refer ence Range is dependent on time and content of last meal. Glucose of more than 200 mg/dL in a nonstressed, ambulatory subject supports the diagnosis of Diabetes Mellitus. Result Comment: [place] om Glucose Reference Range is dependent on time and content of last meal. Glucose of more than 200 mg/dL in a nonstressed, ambulatory subject supports the diagnosis of Diabetes Mellitus.PERFORMED BY:[address] [place], [place] [phone] MEDICAL DIRECTORDEAN MCWILLIAMS M.D. Performed By: #### G DARLENE ####Point of Care testing, Carbon dioxide, total [Moles /volume] in Serum or PlasmaOrdered By: Alon Santiago on 04-16-2023 CO2 [Moles/Vol] 30.1 mmol/L Normal 21.0-31.0 [facility] Comment on above: Performed By: #### B MP ####[address] [address] [facility] Chloride [Moles/volume] in S bushra or PlasmaOrdered By: Alon Santiago on 04-16-2023 Chloride [Moles/Vol] 97 mmol/L Low 98-107 [facility] Comment on above: Performed By: #### B MP ####[address] [address] [facility] Creatinine [Mass/volume] in Serum or PlasmaOrdered By: Alon Santiago on 04-16-2023 Creatinine [Mass/Vol] 6.70 mg/dL Significan t change up 0.70-1.30 [facility] Comment on above: Delta: 10.23 on Performed By: #### B MP ####[address] [place] [address] [facility] ECG 12 lead ECGon 04-16-2023 ECG 12 lead ECG Normal [facility] Glucose Poct Glucometerson 0 04-16-2023 Commemt1 Glu2: Cleaned Meter Normal [facility] Comment on above: Result Comment: PERF ORMED BY:[facility] [place] [phone] MEDICAL DIRECTORDEAN MCWILLIAMS M.D. Performed By: #### G LULS ####Point of Care testing, Glucose [Mass/Vol] 244 mg/dL Normal [facility] Comment on above: Result Comment: [place] om Glucose Reference Range is dependent on time and content of last meal. Glucose of more than 200 mg/dL in a nonstressed, ambulatory subject supports the diagnosis of Diabetes Mellitus. Performed By: #### G LULS ####Point of Care testing, Glucose [Mass/volume] in Ser um or PlasmaOrdered By: Alon Santiago on 04-16-2023 Glucose [Mass/Vol] 218 mg/dL Significant change up 70-100 [facility] Comment on above: Delta: 98 on [id number] recommended reference rangeRandom Glucose Reference Range is dependent on time and content of last meal. Glucose of more than 200 mg/dL in a nonstressed, ambulatory subject supports the diagnosis of Diabetes Mellitus. Result Comment: [place] Glucose Reference Range is dependent on time and content of last meal. Glucose of more than 200 mg/dL in a nonstressed, ambulatory subject supports the diagnosis of Diabetes Mellitus. ADA recommended reference range Performed By: #### B MP ####[facility] [id number] [address] [facility] No Panel InformationOrdered By: Alon Santiago on 04-16-2023 Estimated GFR (CKD-EPI) 8.416 mL/Min [facility] Pharmacy Creatinine Clearance (Chem 13.63 [facility] Bedside Glucose Comment Glu2: cleaned meter [facility] Potassium [Moles/volume] in Serum or PlasmaOrdered By: Alon Santiago on 04-16-2023 Potassium [Moles/Vol] 5.4 mmol/L High 3.5-5.1 [facility] Comment on above: Performed By: #### B MP ####[address] [place] [address] [facility] Serum or plasma anion gap de terminationOrdered By: Obaydah Daromar on 04-16-2023 Anion gap [Moles/Vol] 12.3 mmol/L Normal 6.0-15.0 [facility] Comment on above: Performed By: #### B MP ####[id number] [facility] Sodium [Moles/volume] in Ser um or PlasmaOrdered By: Obcalebdah Daromar on 04-16-2023 Sodium [Moles/Vol] 134 mmol/L Low 136-145 [facility] Comment on above: Performed By: #### B MP ####[address] [address] [facility] Urea nitrogen [Mass/volume] in Serum or PlasmaOrdered By: Obcalebdah Daromar on 04-16-2023 Urea nitrogen [Mass/Vol] 22 mg/dL Normal 7-25 [facility] Comment on above: Performed By: #### B MP ####[address] [address] [facility] Activated partial thrombopla stin time (aPTT) in platelet poor plasma by coagulation aOrdered By: Obcalebdah Donisomar on 04-15-2023 aPTT Coag (PPP) [Time] 28.3 s 25.1-36.5 [facility] Comment on above: A hematocrit value g reater than 55% may lead to inaccurate results in coagulation testing. Patients having hematocrit values >55% require a special collection tube for coagulation studies. Please contact the laboratory at [phone] for redraw instructions. Basic Metabolic Panelon Anion gap [Moles/Vol] 15.8 mmol/L High 6.0-15.0 [facility] Comment on above: Performed By: #### M G, CBCNO, BMP ####[address] [address] [facility] Calcium [Mass/Vol] 9.3 mg/dL Normal 8.6-10.3 [facility] Comment on above: Performed By: #### REBECCA Bae, BMP ####[address] [place] [id number] [facility] Chloride [Moles/Vol] 98 mmol/L Normal 98-107 [facility] Comment on above: Performed By: #### REBECCA Bae, BMP ####[id number] [facility] CO2 [Moles/Vol] 25.5 mmol/L Normal 21.0-31.0 [facility] Comment on above: Performed By: #### REBECCA Bae, BMP ####[id number] [facility] Creatinine [Mass/Vol] 10.23 mg/dL High 0.70-1.30 [facility] Comment on above: Performed By: #### REBECCA Bae, BMP ####[address] [facility] Creatinine Clr Calc Pharmacy 8.89 Normal [facility] Comment on above: Performed By: #### REBECCA Bae, BMP ####[id number] [facility] GFR/1.73 sq M.predicted MDRD (S/P/Bld) [Vol rate/Area] 5.065 mL/min/{1.73_m2} Normal [facility] Comment on above: Performed By: #### REBECCA Bae, BMP ####[address] [facility] Glucose [Mass/Vol] 98 mg/dL Normal 70-100 [facility] Comment on above: Result Comment: [place] Glucose Reference Range is dependent on time and content of last meal. Glucose of more than 200 mg/dL in a nonstressed, ambulatory subject supports the diagnosis of Diabetes Mellitus. ADA recommended reference range Performed By: #### REBECCA Bae, BMP ####[id number] [facility] Potassium [Moles/Vol] 5.3 mmol/L High 3.5-5.1 [facility] Comment on above: Performed By: #### M Debbie, CBCNO, BMP ####[id number] [facility] Sodium [Moles/Vol] 134 mmol/L Low 136-145 [facility] Comment on above: Performed By: #### M G, CBCNO, BMP ####[address] [facility] Urea nitrogen [Mass/Vol] 37 mg/dL High 7-25 [facility] Comment on above: Performed By: #### M G, CBCNO, BMP ####[id number] [facility] C reactive protein [Mass/vol ume] in Serum or PlasmaOrdered By: Alfredo Acosta on 04-15-2023 CRP [Mass/Vol] 4.2 mg/dL 0.0-0.5 [facility] C-Reactive Proteinon 024 C-Reactive Protein 4.2 mg/dL High 0.0-0.5 [facility] Comment on above: Result Comment: PERF ORMED BY:[address] [place], [place] [phone] MEDICAL DIRECTORDEAN MCWILLIAMS M.D. Performed By: #### C RP ####[address] [address] [facility] Coagulation Profileon 2023 aPTT Coag (Bld) [Time] 28.3 s Normal 25.1-36.5 [facility] Comment on above: Result Comment: A he matocrit value greater than 55% may lead to inaccurate results in coagulation testing. Patients having hematocrit values >55% require a special collection tube for coagulation studies. Please contact the laboratory at [phone] for redraw instructions.PERFORMED BY:[address] [place], [place] [phone] MEDICAL DIRECTORDEAN MCWILLIAMS M.D. Performed By: #### P P ####[address] [address] [facility] Erythrocyte distribution wid th [Ratio] by Automated countOrdered By: Gabriel Gould on 04-15-2023 Erythrocyte distribution width (RBC) [Ratio] 15.4 % High 12.0-14.8 [facility] Comment on above: Performed By: #### REBECCA Bae BMP ####[address] [place] [address] [facility] Erythrocytes [#/volume] in B lood by Automated countOrdered By: Gabriel Gould on 04-15-2023 RBC (Bld) [#/Vol] 3.20 10*6/uL Low 3.90-5.60 [facility] Comment on above: Performed By: #### REBECCA Bae BMP ####[address] [place] [address] [facility] Glucose Poct Glucometerson 0 04-15-2023 Commemt1 Glu2: Cleaned Meter Normal [facility] Comment on above: Result Comment: PERF ORMED BY:[address] ZAVALAElodiaADE, [place] [phone] MEDICAL DIRECTORDEAN MCWILLIAMS M.D. Performed By: #### G LULS ####Point of Care testing, Glucose [Mass/Vol] 224 mg/dL Normal [facility] Comment on above: Result Comment: [place] Glucose Reference Range is dependent on time and content of last meal. Glucose of more than 200 mg/dL in a nonstressed, ambulatory subject supports the diagnosis of Diabetes Mellitus. Performed By: #### G LULS ####Point of Care testing, Commemt1 Glu2: Cleaned Meter Normal [facility] Comment on above: Result Comment: PERF ORMED BY:[address] [place], [place] [phone] MEDICAL DIRECTORDEAN MCWILLIAMS M.D. Performed By: #### G LULS ####Point of Care testing, Glucose [Mass/Vol] 197 mg/dL Normal [facility] Comment on above: Result Comment: [place] Glucose Reference Range is dependent on time and content of last meal. Glucose of more than 200 mg/dL in a nonstressed, ambulatory subject supports the diagnosis of Diabetes Mellitus. Performed By: #### G DARLENE ####Point of Care testing, Glucose [Mass/Vol] 101 mg/dL Normal [facility] Comment on above: Result Comment: [facility] Glucose Reference Range is dependent on time and content of last meal. Glucose of more than 200 mg/dL in a nonstressed, ambulatory subject supports the diagnosis of Diabetes Mellitus.PERFORMED BY:[address] [place], [place] [phone] MEDICAL DIRECTORDEAN MCWILLIAMS M.D. Performed By: #### G DARLENE ####Point of Care testing, Hematocrit [Volume Fraction] of Blood by Automated countOrdered By: Gabriel Gould on 04-15-2023 Hematocrit (Bld) [Volume fraction] 29.4 % Low 38.8-50.0 [facility] Comment on above: Performed By: #### REBECCA Bae BMP ####[place] [id number] [facility] Hemoglobin [Mass/volume] in BloodOrdered By: Gabriel Gould on 04-15-2023 Hemoglobin (Bld) [Mass/Vol] 9.9 g/dL Low 13.0-17.0 [facility] Comment on above: Performed By: #### REBECCA Bae BMP ####[id number] [facility] Hemogram CBC Without Diffon 04-15-2023 Mean Corpuscular HGB Conc 33.8 g/dL Normal 32.5-35.6 [facility] Comment on above: Performed By: #### REBECCA Bae BMP ####[id number] [facility] WBC (Bld) [#/Vol] 6.7 10*3/uL Normal 4.1-10.5 [facility] Comment on above: Performed By: #### REBECCA Bae, BMP ####[place] [id number] [facility] INR in Platelet poor plasma by Coagulation assayOrdered By: Alon Santiago on 04-15-2023 INR Coag (PPP) [Relative time] 0.9 {INR} Normal [facility] Comment on above: INR Therapeutic Rang e A) Pre- and Peroperative OAT started two weeks before surgery. NOT HIP SURGERY: 1.5 - 2.5 HIP SURGERY: 2 - 3B) Primary and secondary prevention of venous THROMBOSIS: 2 - 3C) Active venous thrombosis, pulmonary embolismand prevention of recurrent venous thrombosis: 2 - 3D) Prevention of arterial thromboembolismincluding patients with mechanical heart valves: 3 - 4.5 Result Comment: INR Therapeutic Range A) Pre- [...] - 4.5 Performed By: #### P P ####[facility] [id number] Leukocytes [#/volume] correc jennifer for nucleated erythrocytes in Blood by Automated counOrdered By: Gabriel Gould on 04-15-2023 WBC corrected for nucl RBC Auto (Bld) [#/Vol] 6.7 10*3/uL 4.1-10.5 [facility] MCH [Entitic mass] by Automa jennifer countOrdered By: Gabriel Gould on 04-15-2023 MCH (RBC) [Entitic mass] 31.0 pg Normal 27.5-35.2 [facility] Comment on above: Performed By: #### M G, CBCNO, BMP ####[facility] [id number] [id number] [facility] MCHC Auto (RBC) [Mass/Vol]Or dered By: Gabriel Gould on 04-15-2023 MCHC (RBC) [Mass/Vol] 33.8 g/dL 32.5-35.6 [facility] MCV [Entitic volume] by Auto mated countOrdered By: Gabriel Gould on 04-15-2023 MCV (RBC) [Entitic vol] 91.8 fL Normal 83.5-101 [facility] Comment on above: Performed By: #### REBECCA Bae BMP ####[address] [place] [address] [facility] Magnesium [Mass/volume] in S bushra or PlasmaOrdered By: Gabriel Gould on 04-15-2023 Magnesium [Mass/Vol] 2.2 mg/dL Normal 1.9-2.7 [facility] Comment on above: Result Comment: PERF ORMED BY:[address] [place] [place], [place] [phone] MEDICAL DIRECTORDEAN MCWILLIAMS M.D. Performed By: #### REBECCA Bae BMP ####[address] [address] [facility] Platelet mean volume [Entiti c volume] in Blood by Automated countOrdered By: Gabriel Gould on 04-15-2023 Platelet mean volume (Bld) [Entitic vol] 7.6 fL Normal 6.6-10.1 [facility] Comment on above: Result Comment: PERF ORMED BY:[address] [place], [place] [phone] MEDICAL DIRECTORDEAN MCWILLIAMS M.D. Performed By: #### REBECCA Bae BMP ####[address] [address] [facility] Platelets [#/volume] in Bloo d by Automated countOrdered By: Gabriel Gould on 04-15-2023 Platelets (Bld) [#/Vol] 246 10*3/uL Normal 150-450 [facility] Comment on above: Performed By: #### REBECCA Bae BMP ####[address] [address] [facility] Prothrombin time (PT)Ordered By: Alon Santiago on 04-15-2023 PT Coag (PPP) [Time] 11.0 s Normal 9.0-12.9 [facility] Comment on above: A hematocrit value g reater than 55% may lead to inaccurate results in coagulation testing. Patients having hematocrit values >55% require a special collection tube for coagulation studies. Please contact the laboratory at [phone] for redraw instructions. Result Comment: A he matocrit value greater than 55% may lead to inaccurate results in coagulation testing. Patients having hematocrit values >55% require a special collection tube for coagulation studies. Please contact the laboratory at [phone] for redraw instructions. Performed By: #### P P ####[address] [address] [facility] Glucose Poct Glucometerson 0 04-14-2023 Glucose [Mass/Vol] 201 mg/dL Normal [facility] Comment on above: Result Comment: [facility] Glucose Reference Range is dependent on time and content of last meal. Glucose of more than 200 mg/dL in a nonstressed, ambulatory subject supports the diagnosis of Diabetes Mellitus.PERFORMED BY:[address] [place], [place] [phone] MEDICAL JAKE MCWILLIAMS M.D. Performed By: #### G LULS ####Point of Care testing, Glucose [Mass/Vol] 182 mg/dL Normal [facility] Comment on above: Result Comment: [facility] Glucose Reference Range is dependent on time and content of last meal. Glucose of more than 200 mg/dL in a nonstressed, ambulatory subject supports the diagnosis of Diabetes Mellitus.PERFORMED BY:[address] [place], [place] [phone] MEDICAL JAKE MCWILLIAMS M.D. Performed By: #### G LULS ####Point of Care testing, Glucose [Mass/Vol] 267 mg/dL Normal [facility] Comment on above: Result Comment: [facility] Glucose Reference Range is dependent on time and content of last meal. Glucose of more than 200 mg/dL in a nonstressed, ambulatory subject supports the diagnosis of Diabetes Mellitus.PERFORMED BY:[address] [place], [place] [phone] MEDICAL DIRECTORJIANLAN SUN M.D. Performed By: #### G LULS ####Point of Care testing, Glucose [Mass/Vol] 109 mg/dL Normal [facility] Comment on above: Result Comment: [facility] Glucose Reference Range is dependent on time and content of last meal. Glucose of more than 200 mg/dL in a nonstressed, ambulatory subject supports the diagnosis of Diabetes Mellitus.PERFORMED BY:[address] [place], [place] [phone] MEDICAL DIRECTORDEAN MCWILLIAMS M.D. Performed By: #### G LULS ####Point of Care testing, Basic Metabolic Panelon Anion gap [Moles/Vol] 16.3 mmol/L High 6.0-15.0 [facility] Comment on above: Performed By: #### B MP, MG ####[address] [address] [facility] Calcium [Mass/Vol] 9.2 mg/dL Normal 8.6-10.3 [facility] Comment on above: Performed By: #### B MP, MG ####[address] [address] [facility] Chloride [Moles/Vol] 96 mmol/L Low 98-107 [facility] Comment on above: Performed By: #### B MP, MG ####[address] [address] [facility] CO2 [Moles/Vol] 27.5 mmol/L Normal 21.0-31.0 [facility] Comment on above: Performed By: #### B MP, MG ####[address] [address] [facility] Creatinine [Mass/Vol] 6.49 mg/dL Significan t change up 0.70-1.30 [facility] Comment on above: Performed By: #### B MP, MG ####[address] [address] [facility] Creatinine Clr Calc Pharmacy 13.69 Normal [facility] Comment on above: Performed By: #### B MP, MG ####[place] [id number] [facility] GFR/1.73 sq M.predicted MDRD (S/P/Bld) [Vol rate/Area] 8.744 mL/min/{1.73_m2} Normal [facility] Comment on above: Performed By: #### B MP, MG ####[address] Glucose [Mass/Vol] 120 mg/dL High 70-100 [facility] Comment on above: Result Comment: [facility] Glucose Reference Range is dependent on time and content of last meal. Glucose of more than 200 mg/dL in a nonstressed, ambulatory subject supports the diagnosis of Diabetes Mellitus. ADA recommended reference range Performed By: #### B MP, MG ####[place] [id number] [facility] Potassium [Moles/Vol] 4.8 mmol/L Normal 3.5-5.1 [facility] Comment on above: Performed By: #### B MP, MG ####[address] Sodium [Moles/Vol] 135 mmol/L Low 136-145 [facility] Comment on above: Performed By: #### B MP, MG ####[place] [id number] [facility] Urea nitrogen [Mass/Vol] 22 mg/dL Normal 7-25 [facility] Comment on above: Performed By: #### B MP, MG ####[place] [id number] [facility] ECG 12 lead ECGon 04-13-2023 ECG 12 lead ECG Normal [facility] Glucose Poct Glucometerson 0 04-13-2023 Glucose [Mass/Vol] 164 mg/dL Normal [facility] Comment on above: Result Comment: [facility] Glucose Reference Range is dependent on time and content of last meal. Glucose of more than 200 mg/dL in a nonstressed, ambulatory subject supports the diagnosis of Diabetes Mellitus.PERFORMED BY:[address] [place], [place] [phone] MEDICAL DIRECTORANLAN SUN M.D. Performed By: #### G LULS ####Point of Care testing, Glucose [Mass/Vol] 254 mg/dL Normal [facility] Comment on above: Result Comment: [place] [facility] Glucose Reference Range is dependent on time and content of last meal. Glucose of more than 200 mg/dL in a nonstressed, ambulatory subject supports the diagnosis of Diabetes Mellitus.PERFORMED BY:[address] [address] [address] [address] [place], [place] [phone] MEDICAL JAKE MCWILLIAMS M.D. Performed By: #### G LULS ####Point of Care testing, Commemt1 Glu2: Cleaned Meter Normal [facility] Comment on above: Result Comment: PERF ORMED BY:[address] [place], [place] [phone] MEDICAL JAKE MCWILLIAMS M.D. Performed By: #### G LULS ####Point of Care testing, Glucose [Mass/Vol] 286 mg/dL Normal [facility] Comment on above: Result Comment: [place] [facility] Glucose Reference Range is dependent on time and content of last meal. Glucose of more than 200 mg/dL in a nonstressed, ambulatory subject supports the diagnosis of Diabetes Mellitus. Performed By: #### G LULS ####Point of Care testing, Glucose [Mass/Vol] 126 mg/dL Normal [facility] Comment on above: Result Comment: [place] [facility] Glucose Reference Range is dependent on time and content of last meal. Glucose of more than 200 mg/dL in a nonstressed, ambulatory subject supports the diagnosis of Diabetes Mellitus.PERFORMED BY:[address] RODRIGUEZNikkyADEINDIA[place]POL[place], [place] [phone] PAIGE MCWILLIAMS M.D. Performed By: #### G LULS ####Point of Care testing, Hemogram CBC Without Diffon 04-13-2023 Erythrocyte distribution width (RBC) [Ratio] 15.2 % High 12.0-14.8 [facility] Comment on above: Performed By: #### C BCNO ####[place] [id number] [facility] Hematocrit (Bld) [Volume fraction] 29.7 % Low 38.8-50.0 [facility] Comment on above: Performed By: #### C BCNO ####[place] [id number] [facility] Hemoglobin (Bld) [Mass/Vol] 10.1 g/dL Low 13.0-17.0 [facility] Comment on above: Performed By: #### C BCNO ####[place] [id number] [facility] MCH (RBC) [Entitic mass] 31.0 pg Normal 27.5-35.2 [facility] Comment on above: Performed By: #### C BCNO ####[place] [id number] [facility] MCV (RBC) [Entitic vol] 91.4 fL Normal 83.5-101 [facility] Comment on above: Performed By: #### C BCNO ####[place] [id number] [facility] Mean Corpuscular HGB Conc 33.9 g/dL Normal 32.5-35.6 [facility] Comment on above: Performed By: #### C BCNO ####[place] [id number] [facility] Platelet mean volume (Bld) [Entitic vol] 7.9 fL Normal 6.6-10.1 [facility] Comment on above: Result Comment: PERF ORMED BY:[address] [place], [place] [phone] MEDICAL DIRECTORDEAN MCWILLIAMS M.D. Performed By: #### C BCNO ####[place] [id number] [facility] Platelets (Bld) [#/Vol] 249 10*3/uL Normal 150-450 [facility] Comment on above: Performed By: #### C BCNO ####[place] [id number] [facility] RBC (Bld) [#/Vol] 3.25 10*6/uL Low 3.90-5.60 [facility] Comment on above: Performed By: #### C BCNO ####[place] [id number] [facility] WBC (Bld) [#/Vol] 5.9 10*3/uL Normal 4.1-10.5 [facility] Comment on above: Performed By: #### C BCNO ####[place] [id number] [facility] Magnesiumon 04-13-2023 Magnesium [Mass/Vol] 1.8 mg/dL Low 1.9-2.7 [facility] Comment on above: Result Comment: PERF ORMED BY:[address] [place], [place] [phone] MEDICAL DIRECTORDEAN MCWILLIAMS M.D. Performed By: #### B MP, MG ####[place] [id number] [facility] Basic Metabolic Panelon Anion gap [Moles/Vol] 17.0 mmol/L High 6.0-15.0 [facility] Comment on above: Performed By: #### Ezekiel Lewis, BMP ####[place] [id number] [facility] Calcium [Mass/Vol] 8.9 mg/dL Normal 8.6-10.3 [facility] Comment on above: Performed By: #### M Debbie, BMP ####[place] [id number] [facility] Chloride [Moles/Vol] 95 mmol/L Low 98-107 [facility] Comment on above: Performed By: #### M G, BMP ####[place] [id number] [facility] CO2 [Moles/Vol] 27.2 mmol/L Normal 21.0-31.0 [facility] Comment on above: Performed By: #### Ezekiel Lewis, BMP ####[address] [place] [address] [place] Creatinine [Mass/Vol] 9.40 mg/dL Significan t change up 0.70-1.30 [facility] Comment on above: Performed By: #### Ezekiel Lewis, BMP ####[address] Creatinine Clr Calc Pharmacy 9.45 Normal [facility] Comment on above: Performed By: #### Ezekiel Lewis, BMP ####[address] GFR/1.73 sq M.predicted MDRD (S/P/Bld) [Vol rate/Area] 5.606 mL/min/{1.73_m2} Normal [facility] Comment on above: Performed By: #### Ezekiel Lewis, BMP ####[address] Glucose [Mass/Vol] 204 mg/dL Significant change up 70-100 [facility] Comment on above: Result Comment: [place] Glucose Reference Range is dependent on time and content of last meal. Glucose of more than 200 mg/dL in a nonstressed, ambulatory subject supports the diagnosis of Diabetes Mellitus. ADA recommended reference range Performed By: #### Ezekiel Lewis, BMP ####[address] Potassium [Moles/Vol] 5.2 mmol/L High 3.5-5.1 [facility] Comment on above: Performed By: #### Ezekiel Lewis, BMP ####[address] Sodium [Moles/Vol] 134 mmol/L Low 136-145 [facility] Comment on above: Performed By: #### Ezekiel Lewis, BMP ####[address] Urea nitrogen [Mass/Vol] 42 mg/dL High 7-25 [facility] Comment on above: Performed By: #### Ezekiel Lewis, BMP ####[address] Clostridioides difficile tox in B tcdB gene [Presence] in Stool by IRENE with probe deteOrdered By: Gabriel Gould on 04-12-2023 C. difficile toxin B tcdB gene IRENE+probe Ql (Stl) Negative Negative [facility] Comment on above: Testing performed by RT-PCR Clostridium Difficileon 03- Clostridium Difficile Negative Normal Negative [facility] Comment on above: Order Comment: > or = to 3 loose/watery stools in the last 24 HRS? Y Is patient on promotility agents or tube feeding? N Result Comment: Test ing performed by RT-PCRPERFORMED BY:[address] [place], [place] [phone] MEDICAL DIRECTORDEAN MCWILLIAMS M.D. Performed By: #### C DT ####[address] [place] [address] [facility] Glucose Poct Glucometerson 0 04-12-2023 Glucose [Mass/Vol] 265 mg/dL Normal [facility] Comment on above: Result Comment: [place] Glucose Reference Range is dependent on time and content of last meal. Glucose of more than 200 mg/dL in a nonstressed, ambulatory subject supports the diagnosis of Diabetes Mellitus.PERFORMED BY:[place] [address] [address] [place]odia[place], [place] [phone] MEDICAL JAKE MCWILLIAMS M.D. Performed By: #### G LULS ####Point of Care testing, Glucose [Mass/Vol] 207 mg/dL Normal [facility] Comment on above: Result Comment: [facility] Glucose Reference Range is dependent on time and content of last meal. Glucose of more than 200 mg/dL in a nonstressed, ambulatory subject supports the diagnosis of Diabetes Mellitus.PERFORMED BY:[address] [place], [place] [phone] MEDICAL DIRECTORDEAN MCWILLIAMS M.D. Performed By: #### G LULS ####Point of Care testing, Commemt1 Glu2: Cleaned Meter Normal [facility] Comment on above: Result Comment: PERF ORMED BY:[place] [address] [place] [place], [place] [phone] MEDICAL DIRECTORDEAN MCWILLIAMS M.D. Performed By: #### G LULS ####Point of Care testing, Glucose [Mass/Vol] 130 mg/dL Normal [facility] Comment on above: Result Comment: [place] [facility] Glucose Reference Range is dependent on time and content of last meal. Glucose of more than 200 mg/dL in a nonstressed, ambulatory subject supports the diagnosis of Diabetes Mellitus. Performed By: #### G LULS ####Point of Care testing, Glucose [Mass/Vol] 129 mg/dL Normal [facility] Comment on above: Result Comment: [place] [facility] Glucose Reference Range is dependent on time and content of last meal. Glucose of more than 200 mg/dL in a nonstressed, ambulatory subject supports the diagnosis of Diabetes Mellitus.PERFORMED BY:[address] [place], [place] [phone] MEDICAL DIRECTORDEAN MCWILLIAMS M.D. Performed By: #### G LULS ####Point of Care testing, Glucose [Mass/Vol] 224 mg/dL Normal [facility] Comment on above: Result Comment: [place] [facility] Glucose Reference Range is dependent on time and content of last meal. Glucose of more than 200 mg/dL in a nonstressed, ambulatory subject supports the diagnosis of Diabetes Mellitus.PERFORMED BY:[address] [address] [address] [place], [place] [phone] MEDICAL DIRECTORDEAN MCWILLIAMS M.D. Performed By: #### G LULS ####Point of Care testing, Hemogram CBC Without Diffon 04-12-2023 Erythrocyte distribution width (RBC) [Ratio] 14.8 % Normal 12.0-14.8 [facility] Comment on above: Performed By: #### C BCNO ####[address] [address] [facility] Hematocrit (Bld) [Volume fraction] 29.9 % Low 38.8-50.0 [facility] Comment on above: Performed By: #### C BCNO ####[address] [address] [place] Hemoglobin (Bld) [Mass/Vol] 10.1 g/dL Low 13.0-17.0 [facility] Comment on above: Performed By: #### C BCNO ####[address] MCH (RBC) [Entitic mass] 30.8 pg Normal 27.5-35.2 [facility] Comment on above: Performed By: #### C BCNO ####[address] MCV (RBC) [Entitic vol] 91.4 fL Normal 83.5-101 [facility] Comment on above: Performed By: #### C BCNO ####[address] Mean Corpuscular HGB Conc 33.7 g/dL Normal 32.5-35.6 [facility] Comment on above: Performed By: #### C BCNO ####[address] Platelet mean volume (Bld) [Entitic vol] 8.0 fL Normal 6.6-10.1 [facility] Comment on above: Result Comment: PERF ORMED BY:[address] [place], [place] [phone] MEDICAL DIRECTORDEAN MCWILLIAMS M.D. Performed By: #### C BCNO ####[address] Platelets (Bld) [#/Vol] 230 10*3/uL Normal 150-450 [facility] Comment on above: Performed By: #### C BCNO ####[address] RBC (Bld) [#/Vol] 3.27 10*6/uL Low 3.90-5.60 [facility] Comment on above: Performed By: #### C BCNO ####[address] WBC (Bld) [#/Vol] 6.6 10*3/uL Normal 4.1-10.5 [facility] Comment on above: Performed By: #### C BCNO ####[place] [id number] [facility] Magnesiumon 04-12-2023 Magnesium [Mass/Vol] 2.0 mg/dL Normal 1.9-2.7 [facility] Comment on above: Result Comment: PERF ORMED BY:[address] [place], [place] [phone] MEDICAL DIRECTORDEAN MCWILLIAMS M.D. Performed By: #### M G, BMP ####[place] [phone] [facility] Basic Metabolic Panelon 03-15 Anion gap [Moles/Vol] 16.4 mmol/L High 6.0-15.0 [facility] Comment on above: Performed By: #### B MP, MG ####[address] Calcium [Mass/Vol] 9.3 mg/dL Normal 8.6-10.3 [facility] Comment on above: Performed By: #### B MP, MG ####[address] Chloride [Moles/Vol] 96 mmol/L Low 98-107 [facility] Comment on above: Performed By: #### B MP, MG ####[place] [id number] [facility] CO2 [Moles/Vol] 29.6 mmol/L Normal 21.0-31.0 [facility] Comment on above: Performed By: #### B MP, MG ####[address] Creatinine [Mass/Vol] 7.14 mg/dL Significan t change up 0.70-1.30 [facility] Comment on above: Performed By: #### B MP, MG ####[address] Creatinine Clr Calc Pharmacy 12.48 Normal [facility] Comment on above: Performed By: #### B MP, MG ####[place] [address] [place] GFR/1.73 sq M.predicted MDRD (S/P/Bld) [Vol rate/Area] 7.798 mL/min/{1.73_m2} Normal [facility] Comment on above: Performed By: #### B MP, MG ####[address] Glucose [Mass/Vol] 64 mg/dL Low 70-100 [facility] Comment on above: Result Comment: [facility] Glucose Reference Range is dependent on time and content of last meal. Glucose of more than 200 mg/dL in a nonstressed, ambulatory subject supports the diagnosis of Diabetes Mellitus. ADA recommended reference range Performed By: #### B MP, MG ####[address] Potassium [Moles/Vol] 5.0 mmol/L Normal 3.5-5.1 [facility] Comment on above: Performed By: #### B MP, MG ####[address] Sodium [Moles/Vol] 137 mmol/L Normal 136-145 [facility] Comment on above: Performed By: #### B MP, MG ####[address] Urea nitrogen [Mass/Vol] 34 mg/dL High 7-25 [facility] Comment on above: Performed By: #### B MP, MG ####[place] [id number] [facility] Glucose Poct Glucometerson 0 04-11-2023 Glucose [Mass/Vol] 389 mg/dL Normal [facility] Comment on above: Result Comment: [facility] Glucose Reference Range is dependent on time and content of last meal. Glucose of more than 200 mg/dL in a nonstressed, ambulatory subject supports the diagnosis of Diabetes Mellitus.PERFORMED BY:[address].[place], [place] [phone] MEDICAL DIRECTORDEAN MCWILLIAMS M.D. Performed By: #### G LULS ####Point of Care testing, Commemt1 Normal [facility] Comment on above: Result Comment: Glu2 : WILL NOTIFY DR/RN Performed By: #### G LULS ####Point of Care testing, Commemt2 Cleaned Meter Normal [facility] Comment on above: Result Comment: PERF ORMED BY:[address] [place], [place] [phone] MEDICAL DIRECTORDEAN MCWILLIAMS M.D. Performed By: #### G LULS ####Point of Care testing, Glucose [Mass/Vol] 457 mg/dL Off scale high [facility] Comment on above: Result Comment: [place] om Glucose Reference Range is dependent on time and content of last meal. Glucose of more than 200 mg/dL in a nonstressed, ambulatory subject supports the diagnosis of Diabetes Mellitus. Performed By: #### G LULS ####Point of Care testing, Glucose [Mass/Vol] 78 mg/dL Normal [facility] Comment on above: Result Comment: [place] om Glucose Reference Range is dependent on time and content of last meal. Glucose of more than 200 mg/dL in a nonstressed, ambulatory subject supports the diagnosis of Diabetes Mellitus.PERFORMED BY:[address] [place], [place] [phone] MEDICAL DIRECTORDEAN MCWILLIAMS M.D. Performed By: #### G LULS ####Point of Care testing, Hemogram CBC Without Diffon 04-11-2023 Erythrocyte distribution width (RBC) [Ratio] 15.2 % High 12.0-14.8 [facility] Comment on above: Performed By: #### C BCNO ####[address] [address] [facility] Hematocrit (Bld) [Volume fraction] 32.3 % Low 38.8-50.0 [facility] Comment on above: Performed By: #### C BCNO ####[place] [id number] [facility] Hemoglobin (Bld) [Mass/Vol] 10.8 g/dL Low 13.0-17.0 [facility] Comment on above: Performed By: #### C BCNO ####[place] [id number] [facility] MCH (RBC) [Entitic mass] 30.6 pg Normal 27.5-35.2 [facility] Comment on above: Performed By: #### C BCNO ####[place] [phone] [facility] MCV (RBC) [Entitic vol] 91.5 fL Normal 83.5-101 [facility] Comment on above: Performed By: #### C BCNO ####[address] Mean Corpuscular HGB Conc 33.4 g/dL Normal 32.5-35.6 [facility] Comment on above: Performed By: #### C BCNO ####[address] Platelet mean volume (Bld) [Entitic vol] 8.3 fL Normal 6.6-10.1 [facility] Comment on above: Result Comment: PERF ORMED BY:[address] [place], [place] [phone] MEDICAL DIRECTORDAEN MCWILLIAMS M.D. Performed By: #### C BCNO ####[place] [id number] [facility] Platelets (Bld) [#/Vol] 228 10*3/uL Normal 150-450 [facility] Comment on above: Performed By: #### C BCNO ####[place] [id number] [facility] RBC (Bld) [#/Vol] 3.53 10*6/uL Low 3.90-5.60 [facility] Comment on above: Performed By: #### C BCNO ####[address] [place] [address] [facility] WBC (Bld) [#/Vol] 7.0 10*3/uL Normal 4.1-10.5 [facility] Comment on above: Performed By: #### C BCNO ####[place] [id number] [facility] Magnesiumon 04-11-2023 Magnesium [Mass/Vol] 2.1 mg/dL Normal 1.9-2.7 [facility] Comment on above: Result Comment: PERF ORMED BY:[address] [address] [address] [place], [place] [phone] MEDICAL DIRECTORDEAN MCWILLIAMS M.D. Performed By: #### B MP, MG ####[place] [id number] [facility] No Panel InformationOrdered By: Gabriel Gould on 04-11-2023 Bedside Glucose #2 Comment Cleaned meter [facility] A1C with Estimated Average G luon 04-10-2023 Glucose [Mass/Vol] 235 mg/dL Normal [facility] Comment on above: Result Comment: PERF ORMED BY:[address] [address] [address] [place], [place] [phone] MEDICAL DIRECTORDEAN MCWILLIAMS M.D. Performed By: #### C BC, CRP, BMP, LIPID, A1C WTH eA, MG ####[address] Automated basophil %Ordered By: Gabriel Gould on 04-10-2023 Basophils/100 WBC (Bld) 0.4 % Normal . [facility] Comment on above: Performed By: #### C BC, CRP, BMP, LIPID, A1C WTH eA, MG ####[address] Automated basophil countOrde red By: Gabriel Gould on 04-10-2023 Basophils (Bld) [#/Vol] 0.0 10*3/uL Normal 0.0-0.2 [facility] Comment on above: Result Comment: PERF ORMED BY:[address] [place], [place] [phone] MEDICAL DIRECTORDEAN MCWILLIAMS M.D. Performed By: #### C BC, CRP, BMP, LIPID, A1C WTH eA, MG ####[address] Automated blood monocyte cou ntOrdered By: Gabriel Gould on 04-10-2023 Monocytes (Bld) [#/Vol] 0.8 10*3/uL Normal 0.0-0.8 [facility] Comment on above: Performed By: #### C BC, CRP, BMP, LIPID, A1C WTH eA, MG ####[address] Automated eosinophil %Ordere d By: Gabriel Gould on 04-10-2023 Eosinophils/100 WBC (Bld) 0.5 % Normal . [facility] Comment on above: Performed By: #### C BC, CRP, BMP, LIPID, A1C WTH eA, MG ####[address] Automated eosinophil countOr dered By: Gabriel Gould on 04-10-2023 Eosinophils (Bld) [#/Vol] 0.0 10*3/uL Normal 0.0-0.45 [facility] Comment on above: Performed By: #### C BC, CRP, BMP, LIPID, A1C WTH eA, MG ####[address] Automated monocyte %Ordered By: Gabriel Gould on 04-10-2023 Monocytes/100 WBC (Bld) 10.6 % Normal . [facility] Comment on above: Performed By: #### C BC, CRP, BMP, LIPID, A1C WTH eA, MG ####[address] Automated neutrophil %Ordere d By: Gabriel Gould on 04-10-2023 Neutrophils/100 WBC (Bld) 84.9 % Normal . [facility] Comment on above: Performed By: #### C BC, CRP, BMP, LIPID, A1C WTH eA, MG ####[place] [id number] [facility] Basic Metabolic Panelon 03-15 Anion gap [Moles/Vol] 16.8 mmol/L High 6.0-15.0 [facility] Comment on above: Order Comment: FASTI NG Y Performed By: #### C BC, CRP, BMP, LIPID, A1C WTH eA, MG ####[place] [id number] [facility] Calcium [Mass/Vol] 9.2 mg/dL Normal 8.6-10.3 [facility] Comment on above: Order Comment: FASTI NG Y Performed By: #### C BC, CRP, BMP, LIPID, A1C WTH eA, MG ####[address] Chloride [Moles/Vol] 95 mmol/L Low 98-107 [facility] Comment on above: Order Comment: FASTI NG Y Performed By: #### C BC, CRP, BMP, LIPID, A1C WTH eA, MG ####[address] CO2 [Moles/Vol] 25.2 mmol/L Normal 21.0-31.0 [facility] Comment on above: Order Comment: FASTI NG Y Performed By: #### C BC, CRP, BMP, LIPID, A1C WTH eA, MG ####[place] [id number] [facility] Creatinine [Mass/Vol] 9.83 mg/dL Significan t change up 0.70-1.30 [facility] Comment on above: Order Comment: FASTI NG Y Performed By: #### C BC, CRP, BMP, LIPID, A1C WTH eA, MG ####[place] [id number] [facility] Creatinine Clr Calc Pharmacy 8.58 Normal [facility] Comment on above: Order Comment: FASTI NG Y Performed By: #### C BC, CRP, BMP, LIPID, A1C WTH eA, MG ####[place] [address] [place] [id number] [facility] GFR/1.73 sq M.predicted MDRD (S/P/Bld) [Vol rate/Area] 5.313 mL/min/{1.73_m2} Normal [facility] Comment on above: Order Comment: FASTI NG Y Performed By: #### C BC, CRP, BMP, LIPID, A1C WTH eA, MG ####[place] [address] [place] [id number] [facility] Glucose [Mass/Vol] 115 mg/dL High 70-100 [facility] Comment on above: Order Comment: FASTI NG Y Result Comment: [facility] Glucose Reference Range is dependent on time and content of last meal. Glucose of more than 200 mg/dL in a nonstressed, ambulatory subject supports the diagnosis of Diabetes Mellitus. ADA recommended reference range Performed By: #### C BC, CRP, BMP, LIPID, A1C WTH eA, MG ####[place] [id number] [facility] Potassium [Moles/Vol] 5.0 mmol/L Normal 3.5-5.1 [facility] Comment on above: Order Comment: FASTI NG Y Performed By: #### C BC, CRP, BMP, LIPID, A1C WTH eA, MG ####[place] [address] [place] [id number] [facility] Sodium [Moles/Vol] 132 mmol/L Low 136-145 [facility] Comment on above: Order Comment: FASTI NG Y Performed By: #### C BC, CRP, BMP, LIPID, A1C WTH eA, MG ####[place] [id number] [place] Urea nitrogen [Mass/Vol] 40 mg/dL High 7-25 [facility] Comment on above: Order Comment: FASTI NG Y Performed By: #### C BC, CRP, BMP, LIPID, A1C WTH eA, MG ####[place] [id number] [place] C-Reactive Proteinon 04-10-2 024 C-Reactive Protein 12.5 mg/dL High 0.0-0.5 [facility] Comment on above: Order Comment: FASTI SHANNON Y Performed By: #### C BC, CRP, BMP, LIPID, A1C WTH eA, MG ####[place] [address] Cholesterol [Mass/volume] in Serum or PlasmaOrdered By: Gabriel Gould on 04-10-2023 Cholesterol [Mass/Vol] 74 mg/dL Low 140-200 [facility] Comment on above: Chol less than 200 m g/dl low riskChol 201-239 mg/dl borderline riskChol 240 mg/dl and greater high risk Order Comment: FASTI NG Y Result Comment: Chol less than 200 mg/dl low risk Chol 201-239 mg/dl borderline risk Chol 240 mg/dl and greater high risk Performed By: #### C BC, CRP, BMP, LIPID, A1C WTH eA, MG ####[place] [address] [place] [id number] [facility] Cholesterol in LDL Calc [Mas s/Vol]Ordered By: Gabriel Gould on 04-10-2023 Cholesterol in LDL [Mass/Vol] 21 mg/dL 0-100 [facility] Comment on above: LDL ATP III CLASSIFI CATIONLDL less than 100 mg/dL OptimalLDL 100-129 mg/dL Near or above optimalLDL 130-159 mg/dL Borderline highLDL 160-189 mg/dL HighLDL greater than 189 mg/dL Very high Cholesterol in VLDL Calc [Ma ss/Vol]Ordered By: Gabriel Gould on 04-10-2023 Cholesterol in VLDL [Mass/Vol] 13 mg/dL [facility] Complete Blood Count Auto Di ffon 04-10-2023 Erythrocyte distribution width (RBC) [Ratio] 15.1 % High 12.0-14.8 [facility] Comment on above: Performed By: #### C BC, CRP, BMP, LIPID, A1C WTH eA, MG ####[place] [address] [place] [id number] [facility] Hematocrit (Bld) [Volume fraction] 30.7 % Low 38.8-50.0 [facility] Comment on above: Performed By: #### C BC, CRP, BMP, LIPID, A1C WTH eA, MG ####[address] Hemoglobin (Bld) [Mass/Vol] 10.4 g/dL Low 13.0-17.0 [facility] Comment on above: Performed By: #### C BC, CRP, BMP, LIPID, A1C WTH eA, MG ####[address] MCH (RBC) [Entitic mass] 31.1 pg Normal 27.5-35.2 [facility] Comment on above: Performed By: #### C BC, CRP, BMP, LIPID, A1C WTH eA, MG ####[address] MCV (RBC) [Entitic vol] 91.9 fL Normal 83.5-101 [facility] Comment on above: Performed By: #### C BC, CRP, BMP, LIPID, A1C WTH eA, MG ####[address] Mean Corpuscular HGB Conc 33.8 g/dL Normal 32.5-35.6 [facility] Comment on above: Performed By: #### C BC, CRP, BMP, LIPID, A1C WTH eA, MG ####[address] NRBC% 0.1 /100{WBC} Normal 0-0.5 [facility] Comment on above: Performed By: #### C BC, CRP, BMP, LIPID, A1C WTH eA, MG ####[address] Platelet mean volume (Bld) [Entitic vol] 8.5 fL Normal 6.6-10.1 [facility] Comment on above: Performed By: #### C BC, CRP, BMP, LIPID, A1C WTH eA, MG ####[address] Platelets (Bld) [#/Vol] 215 10*3/uL Normal 150-450 [facility] Comment on above: Performed By: #### C BC, CRP, BMP, LIPID, A1C WTH eA, MG ####[place] [id number] [facility] RBC (Bld) [#/Vol] 3.34 10*6/uL Low 3.90-5.60 [facility] Comment on above: Performed By: #### C BC, CRP, BMP, LIPID, A1C WTH eA, MG ####[place] [id number] [facility] Erythrocyte Sedimentation Ra kunal 04-10-2023 ESR (Bld) [Velocity] 68 mm/h High 0-19 [facility] Comment on above: Result Comment: PERF ORMED BY:[place] [address] [address] [place], [place] [phone] MEDICAL DIRECTORDEAN MCWILLIAMS M.D. Performed By: #### E SR ####[place] [id number] [facility] Erythrocyte sedimentation ra te by Photometric methodOrdered By: Alfredo Acosta on 04-10-2023 ESR Photometric method (Bld) [Velocity] 68 mm/hr 0-19 [facility] Glucose Poct Glucometerson 0 04-10-2023 Glucose [Mass/Vol] 398 mg/dL Normal [facility] Comment on above: Result Comment: [facility] Glucose Reference Range is dependent on time and content of last meal. Glucose of more than 200 mg/dL in a nonstressed, ambulatory subject supports the diagnosis of Diabetes Mellitus.PERFORMED BY:[place] [address] [address] [place], [place] [phone] MEDICAL DIRECTORDEAN MCWILLIAMS M.D. Performed By: #### G LULS ####Point of Care testing, Glucose [Mass/Vol] 308 mg/dL Normal [facility] Comment on above: Result Comment: [facility] Glucose Reference Range is dependent on time and content of last meal. Glucose of more than 200 mg/dL in a nonstressed, ambulatory subject supports the diagnosis of Diabetes Mellitus.PERFORMED BY:[place] [address] [place], [place] [phone] MEDICAL DIRECTORDEAN MCWILLIAMS M.D. Performed By: #### G LULS ####Point of Care testing, Commemt1 Glu2: Cleaned Meter Normal [facility] Comment on above: Result Comment: PERF ORMED BY:[place] [address] [place], [place] [phone] MEDICAL DIRECTORDEAN MCWILLIAMS M.D. Performed By: #### G LULS ####Point of Care testing, Glucose [Mass/Vol] 137 mg/dL Normal [facility] Comment on above: Result Comment: [place] [facility] Glucose Reference Range is dependent on time and content of last meal. Glucose of more than 200 mg/dL in a nonstressed, ambulatory subject supports the diagnosis of Diabetes Mellitus. Performed By: #### G LULS ####Point of Care testing, Commemt1 Glu2: Cleaned Meter Normal [facility] Comment on above: Result Comment: PERF ORMED BY:[place] [address] [place], [place] [phone] MEDICAL DIRECTORDEAN MCWILLIAMS M.D. Performed By: #### G LULS ####Point of Care testing, Glucose [Mass/Vol] 117 mg/dL Normal [facility] Comment on above: Result Comment: [place] [facility] Glucose Reference Range is dependent on time and content of last meal. Glucose of more than 200 mg/dL in a nonstressed, ambulatory subject supports the diagnosis of Diabetes Mellitus. Performed By: #### G LULS ####Point of Care testing, Glucose mean value [Mass/vol ume] in Blood Estimated from glycated hemoglobinOrdered By: Gabriel Gould on 04-10-2023 Average glucose Estimated from glycated hemoglobin (Bld) [Mass/Vol] 235 mg/dL [facility] Hemoglobin A1c percentageOrd ered By: Gabriel Gould on 04-10-2023 HbA1c (Bld) [Mass fraction] 9.8 % High 4.3-5.6 [facility] Comment on above: Increased risk for d iabetes: 5.7 - 6.4diabetes: >6.4glycemic control for adults with diabetes: <7.0 Result Comment: Incr eased risk for diabetes: 5.7 - 6.4 diabetes: >6.4 glycemic control for adults with diabetes: <7.0 Performed By: #### C BC, CRP, BMP, LIPID, A1C WTH eA, MG ####[place] [address] Leukocytes [#/volume] in Blo od by Automated countOrdered By: Gabriel Gould on 04-10-2023 WBC (Bld) [#/Vol] 7.8 10*3/uL Normal 4.1-10.5 [facility] Comment on above: Performed By: #### C BC, CRP, BMP, LIPID, A1C WTH eA, MG ####[facility] [place] [id number] [facility] Lipid Panelon 04-10-2023 LDL Cholesterol,Calculated 21 mg/dL Normal 0-100 [facility] Comment on above: Order Comment: JAMES Esparza Result Comment: LDL ATP III CLASSIFICATION LDL less than 100 mg/dL Optimal LDL 100-129 mg/dL Near or above optimal LDL 130-159 mg/dL Borderline high LDL 160-189 mg/dL High LDL greater than 189 mg/dL Very high Performed By: #### C BC, CRP, BMP, LIPID, A1C WTH eA, MG ####[address] Triglyceride w/Reflex 66 mg/dL Normal 0-149 [facility] Comment on above: Order Comment: JAMES Esparza Result Comment: TRIG ATP III CLASSIFICATION TRIG less than 150 mg/dL Normal TRIG 150-199 mg/dL Borderline high TRIG 200-500 mg/dL High TRIG greater than 500 mg/dL Very high Standard traceable to the Center for Disease Conrtrol and Prevention (CDC) test method. Performed By: #### C BC, CRP, BMP, LIPID, A1C WTH eA, MG ####[facility] [place] [address] [facility] VLDL CHOLESTEROL 13 mg/dL Normal [facility] Comment on above: Order Comment: JAMES Esparza Performed By: #### C BC, CRP, BMP, LIPID, A1C WTH eA, MG ####[place] [address] [place] [id number] [facility] Lymphocytes [#/volume] in Bl ood by Automated countOrdered By: Gabriel Gould on 04-10-2023 Lymphocytes (Bld) [#/Vol] 0.3 10*3/uL Low 1.00-4.8 [facility] Comment on above: Performed By: #### C BC, CRP, BMP, LIPID, A1C WTH eA, MG ####[place] [address] [place] [id number] [facility] Lymphocytes/100 leukocytes i n Blood by Automated countOrdered By: Gabriel Gould on 04-10-2023 Lymphocytes/100 WBC (Bld) 3.6 % Normal . [facility] Comment on above: Performed By: #### C BC, CRP, BMP, LIPID, A1C WTH eA, MG ####[address] MR foot LT wo conon 04-10-19 24 MR foot LT wo con Normal [facility] Magnesiumon 04-10-2023 Magnesium [Mass/Vol] 2.0 mg/dL Normal 1.9-2.7 [facility] Comment on above: Order Comment: FASTI NG Y Performed By: #### C BC, CRP, BMP, LIPID, A1C WTH eA, MG ####[place] [address] [place] [id number] [facility] Neutrophils [#/volume] in Bl ood by Automated countOrdered By: Gabriel Gould on 04-10-2023 Neutrophils (Bld) [#/Vol] 6.6 10*3/uL Normal 1.8-7.7 [facility] Comment on above: Performed By: #### C BC, CRP, BMP, LIPID, A1C WTH eA, MG ####[place] [address] [place] [id number] [facility] Nucleated erythrocytes [Pres ence] in Blood by Automated countOrdered By: Gabriel Gould on 04-10-2023 Nucleated RBC Auto Ql (Bld) 0.1 /100{WBC} 0-0.5 [facility] Serum or plasma high density lipoprotein (HDL) cholesterol measurementOrdered By: Gabriel Gould on 04-10-2023 Cholesterol in HDL [Mass/Vol] 40 mg/dL Normal 23-92 [facility] Comment on above: HDL CHOL ATP-III CLA SSIFICATION Cardiovascular RiskHDL > or equal to 60 mg/dL LOWHDL < 40 mg/dL HIGH Order Comment: JAMES Esparza Result Comment: HDL CHOL ATP-III CLASSIFICATION Cardiovascular Risk HDL > or equal to 60 mg/dL LOW HDL < 40 mg/dL HIGH Performed By: #### C BC, CRP, BMP, LIPID, A1C WTH eA, MG ####[facility] [address] [place] [address] [facility] Serum or plasma total choles terol/high density lipoprotein (HDL) cholesterol mass ratOrdered By: Gabriel Gould on 04-10-2023 Cholesterol.total/Chol esterol in HDL [Mass ratio] 1.9 {ratio} Normal <5.0 [facility] Comment on above: Order Comment: JAMES Esparza Result Comment: PERF ORMED BY:[facility] [place] [address] [place], [place] [phone] MEDICAL DIRECTORDEAN MCWILLIAMS M.D. Performed By: #### C BC, CRP, BMP, LIPID, A1C WTH eA, MG ####[facility] [address] [place] [address] [facility] Triglyceride [Mass/volume] i n Serum or PlasmaOrdered By: Gabriel Gould on 04-10-2023 Triglyceride [Mass/Vol] 66 mg/dL 0-149 [facility] Comment on above: TRIG ATP III CLASSIF ICATIONTRIG less than 150 mg/dL NormalTRIG 150-199 mg/dL Borderline highTRIG 200-500 mg/dL High TRIG greater than 500 mg/dL Very highStandard traceable to the Center for Disease Conrtrol and Prevention (CDC) test method. US arterial pvr rest Amber US arterial pvr rest LE Normal [facility] US venous duplex LE LTon US venous duplex LE LT Normal [facility] Anisocytosis [Presence] in B lood by Light microscopyOrdered By: Mikey Allen on 04-09-2023 Anisocytosis Ql (Bld) Slight Normal [facility] Comment on above: Performed By: #### E SR, SCAN CBC, MG, BMP ####[address] Bacteria identified Aer cx N om (Unsp spec)Ordered By: Mikey Allen on 04-09-2023 Superficial Wound Culture Proteus mirabilis [facility] Bacterial blood cultureOrder ed By: Mikey Allen on 04-09-2023 Bacteria identified Cx Nom (Bld) NO GROWTH 5 DAYS [facility] Bacteria identified Cx Nom (Bld) NO GROWTH 5 DAYS [facility] Basic Metabolic Panelon 03-15 Anion gap [Moles/Vol] 21.2 mmol/L High 6.0-15.0 [facility] Comment on above: Performed By: #### E SR, SCAN CBC, MG, BMP ####[address] Calcium [Mass/Vol] 9.8 mg/dL Normal 8.6-10.3 [facility] Comment on above: Performed By: #### E SR, SCAN CBC, MG, BMP ####[address] Chloride [Moles/Vol] 93 mmol/L Low 98-107 [facility] Comment on above: Performed By: #### E SR, SCAN CBC, MG, BMP ####[address] CO2 [Moles/Vol] 25.3 mmol/L Normal 21.0-31.0 [facility] Comment on above: Performed By: #### E SR, SCAN CBC, MG, BMP ####[address] Creatinine [Mass/Vol] 8.07 mg/dL High 0.70-1.30 [facility] Comment on above: Performed By: #### E SR, SCAN CBC, MG, BMP ####[address] [address] [place] Creatinine Clr Calc Pharmacy 10.36 Normal [facility] Comment on above: Result Comment: PERF ORMED BY:[address] [place], [place] [phone] MEDICAL DIRECTORDEAN MCWILLIAMS M.D. Performed By: #### E SR, SCAN CBC, MG, BMP ####[address] GFR/1.73 sq M.predicted MDRD (S/P/Bld) [Vol rate/Area] 6.732 mL/min/{1.73_m2} Normal [facility] Comment on above: Performed By: #### E SR, SCAN CBC, MG, BMP ####[address] Glucose [Mass/Vol] 175 mg/dL High 70-100 [facility] Comment on above: Result Comment: [place] Glucose Reference Range is dependent on time and content of last meal. Glucose of more than 200 mg/dL in a nonstressed, ambulatory subject supports the diagnosis of Diabetes Mellitus. ADA recommended reference range Performed By: #### E SR, SCAN CBC, MG, BMP ####[address] Potassium [Moles/Vol] 5.5 mmol/L High 3.5-5.1 [facility] Comment on above: Performed By: #### E SR, SCAN CBC, MG, BMP ####[address] Sodium [Moles/Vol] 134 mmol/L Low 136-145 [facility] Comment on above: Performed By: #### E SR, SCAN CBC, MG, BMP ####[address] Urea nitrogen [Mass/Vol] 36 mg/dL High 7-25 [facility] Comment on above: Performed By: #### E SR, SCAN CBC, MG, BMP ####[address] Blood Cultureon 04-09-2023 Bacteria identified Cx Nom (Bld) NO GROWTH 5 DAYS PERFORMED BY: [facility] [address] [place] [address] PATHOLOGIST [employer]ER REPLACER DEAN MCWILLIAMS M.D. Normal [facility] Comment on above: Performed By: #### C UBLD, LACTIC ####[address] [address] [facility] Bacteria identified Cx Nom (Bld) NO GROWTH 5 DAYS PERFORMED BY: [facility] [address] [place] [address] PATHOLOGIST [employer]ER REPLACER DEAN MCWILLIAMS M.D. Normal [facility] Comment on above: Performed By: #### C UBLD, LACTIC ####[address] [address] [facility] Erythrocyte Sedimentation Ra kunal 04-09-2023 ESR (Bld) [Velocity] 91 mm/h High 0-19 [facility] Comment on above: Result Comment: PERF ORMED BY:[address] [place], [place] [phone] MEDICAL DIRECTORDEAN MCWILLIAMS M.D. Performed By: #### E SR, SCAN CBC, MG, BMP ####[address] [address] [facility] Glucose Poct Glucometerson 0 04-09-2023 Commemt1 Glu2: Cleaned Meter Normal [facility] Comment on above: Result Comment: PERF ORMED BY:[address] [place], [place] [phone] MEDICAL DIRECTORDEAN MCWILLIAMS M.D. Performed By: #### G LULS ####Point of Care testing, Glucose [Mass/Vol] 275 mg/dL Normal [facility] Comment on above: Result Comment: [place] Glucose Reference Range is dependent on time and content of last meal. Glucose of more than 200 mg/dL in a nonstressed, ambulatory subject supports the diagnosis of Diabetes Mellitus. Performed By: #### G LULS ####Point of Care testing, Hypochromia LM Ql (Bld)Order ed By: Mikey Allen on 04-09-2023 Hypochromia Ql (Bld) Slight [facility] Lactate [Moles/volume] in Se rum or PlasmaOrdered By: Mikey Allen on 04-09-2023 Lactate [Moles/Vol] 1.1 mmol/L Normal 0.5-2.2 [facility] Comment on above: Result Comment: PERF ORMED BY:[address] [place], [place] [phone] MEDICAL DIRECTORDEAN MCWILLIAMS M.D. Performed By: #### C UBLD, LACTIC ####[place] [address] [place] [address] [facility] Magnesiumon 04-09-2023 Magnesium [Mass/Vol] 2.1 mg/dL Normal 1.9-2.7 [facility] Comment on above: Result Comment: PERF ORMED BY:[address] [place], [place] [phone] MEDICAL DIRECTORDEAN MCWILLIAMS M.D. Performed By: #### E SR, SCAN CBC, MG, BMP ####[place] [address] [place] [address] [facility] Monocyte distribution width [Entitic volume] in Blood by AutomatedOrdered By: Mikey Allen on 04-09-2023 Monocyte distribution width Auto (Bld) [Entitic vol] 22.19 % 0.00-20.00 [facility] Comment on above: For adults in ED, MD W > 20.0 may be associated with a higher risk of sepsis during the first 12 hrs of hospital admission Ovalocyte detectionOrdered B y: Mikey Allen on 04-09-2023 Ovalocytes LM Ql (Bld) Slight [facility] Platelet adequacy [Presence] in Blood by Light microscopyOrdered By: Mikey Allen on 04-09-2023 Platelets LM Ql (Bld) Normal Normal [facility] Platelet morphology finding [Identifier] in BloodOrdered By: Mikey Allen on 04-09-2023 Platelet morphology finding Nom (Bld) Normal Normal [facility] Poikilocytosis [Presence] in Blood by Light microscopyOrdered By: Mikey Allen on 04-09-2023 Poikilocytosis LM Ql (Bld) Slight [facility] RBC morphologyOrdered By: Sa forbeslacy Alejandro on 04-09-2023 RBC morphology finding Nom (Bld) N/A [facility] Scan and CBCon 04-09-2023 Basophils (Bld) [#/Vol] 0.0 10*3/uL Normal 0.0-0.2 [facility] Comment on above: Performed By: #### E SR, SCAN CBC, MG, BMP ####[address] Basophils/100 WBC (Bld) 0.5 % Normal . [facility] Comment on above: Performed By: #### E SR, SCAN CBC, MG, BMP ####[address] Eosinophils (Bld) [#/Vol] 0.1 10*3/uL Normal 0.0-0.45 [facility] Comment on above: Performed By: #### E SR, SCAN CBC, MG, BMP ####[address] Eosinophils/100 WBC (Bld) 1.1 % Normal . [facility] Comment on above: Performed By: #### E SR, SCAN CBC, MG, BMP ####[address] Erythrocyte distribution width (RBC) [Ratio] 15.3 % High 12.0-14.8 [facility] Comment on above: Performed By: #### E SR, SCAN CBC, MG, BMP ####[address] Hematocrit (Bld) [Volume fraction] 33.3 % Low 38.8-50.0 [facility] Comment on above: Performed By: #### E SR, SCAN CBC, MG, BMP ####[address] Hemoglobin (Bld) [Mass/Vol] 11.2 g/dL Low 13.0-17.0 [facility] Comment on above: Performed By: #### E SR, SCAN CBC, MG, BMP ####[address] Hypochromasia Slight Normal [facility] Comment on above: Performed By: #### E SR, SCAN CBC, MG, BMP ####[address] Lymphocytes (Bld) [#/Vol] 0.8 10*3/uL Low 1.00-4.8 [facility] Comment on above: Performed By: #### E SR, SCAN CBC, MG, BMP ####[address] Lymphocytes/100 WBC (Bld) 9.2 % Normal . [facility] Comment on above: Performed By: #### E SR, SCAN CBC, MG, BMP ####[address] MCH (RBC) [Entitic mass] 30.8 pg Normal 27.5-35.2 [facility] Comment on above: Performed By: #### E SR, SCAN CBC, MG, BMP ####[address] MCV (RBC) [Entitic vol] 92.2 fL Normal 83.5-101 [facility] Comment on above: Performed By: #### E SR, SCAN CBC, MG, BMP ####[address] Mean Corpuscular HGB Conc 33.4 g/dL Normal 32.5-35.6 [facility] Comment on above: Performed By: #### E SR, SCAN CBC, MG, BMP ####[address] Monocytes (Bld) [#/Vol] 1.6 10*3/uL High 0.0-0.8 [facility] Comment on above: Performed By: #### E SR, SCAN CBC, MG, BMP ####[address] Monocytes/100 WBC (Bld) 22.19 % High 0.00-20.00 [facility] Comment on above: Result Comment: For adults in ED, MDW > 20.0 may be associated with a higher risk of sepsis during the first 12 hrs of hospital admission Performed By: #### E SR, SCAN CBC, MG, BMP ####[address] Monocytes/100 WBC (Bld) 17.7 % Normal . [facility] Comment on above: Performed By: #### E SR, SCAN CBC, MG, BMP ####[address] Neutrophils (Bld) [#/Vol] 6.3 10*3/uL Normal 1.8-7.7 [facility] Comment on above: Performed By: #### E SR, SCAN CBC, MG, BMP ####[address] Neutrophils/100 WBC (Bld) 71.5 % Normal . [facility] Comment on above: Performed By: #### E SR, SCAN CBC, MG, BMP ####[address] NRBC% 0.1 /100{WBC} Normal 0-0.5 [facility] Comment on above: Performed By: #### E SR, SCAN CBC, MG, BMP ####[address] Ovalocytes Slight Normal [facility] Comment on above: Performed By: #### E SR, SCAN CBC, MG, BMP ####[address] Platelet Estimate Normal Normal Normal [facility] Comment on above: Performed By: #### E SR, SCAN CBC, MG, BMP ####[address] Platelet mean volume (Bld) [Entitic vol] 8.5 fL Normal 6.6-10.1 [facility] Comment on above: Performed By: #### E SR, SCAN CBC, MG, BMP ####[address] Platelet Morphology Normal Normal Normal [facility] Comment on above: Performed By: #### E SR, SCAN CBC, MG, BMP ####[address] Platelets (Bld) [#/Vol] 223 10*3/uL Normal 150-450 [facility] Comment on above: Performed By: #### E SR, SCAN CBC, MG, BMP ####[address] Poikilocytosis Slight Normal [facility] Comment on above: Performed By: #### E SR, SCAN CBC, MG, BMP ####[address] RBC (Bld) [#/Vol] 3.62 10*6/uL Low 3.90-5.60 [facility] Comment on above: Performed By: #### E SR, SCAN CBC, MG, BMP ####[address] WBC (Bld) [#/Vol] 8.8 10*3/uL Normal 4.1-10.5 [facility] Comment on above: Performed By: #### E SR, SCAN CBC, MG, BMP ####[address] Superficial Wound Cultureon 04-09-2023 Superficial Wound Culture Normal [facility] Comment on above: Performed By: #### C USUP ####[address] XR foot LT min 3V*on 024 XR foot LT min 3V* Normal [facility] Outside Progress Noteon 03-15 Outside Progress Note [phone] [id number] Normal [facility] Follow-Upon 03-15-2023 Follow-Up [id number] Brie,Will marshall 1955 M Date Provider Department Center 03/15/2023 503NeymarDEIDRE SANDERSON DEANGELOMicha [facility] No family history on file Level of Service:33983 [place] POSTOP FOLLOW UP VISIT RELATED TO ORIGINAL PX Reason for Visit and Comments: Follow-up [825259] - Check maturation Rbrac-ceph AVF created on 01/18/23 [facility] Follow-Upon 02-06-2023 Follow-Up [id number] [place],Will marshall 1955 M Date Provider Department Center 02/06/2023 SheilaDEIDRE SANDERSON MIGUEL ANGELJAIMECLEMENTINASHARON [facility] No family history on file Level of Service:24016 [place] POSTOP FOLLOW UP VISIT RELATED TO ORIGINAL PX Reason for Visit and Comments: Post-op [483] - S/P RUE AV Fistula creation on 01/18/23 [facility] 29on 01-21-2023 29 Addendum created 01/03 1344 by Maranda Chavez MD Clinical Note Signed [facility] APTTon 01-18-2023 ACTIVATED PARTIAL THROMBOPLASTIN TIME IN PPP BY COAGULATION ASSAY 29.4 Seconds Normal 25.0-35.0 [facility] Comment on above: Result Comment: Clin ical significance of the APTT is questionable in the presence of heparin. Performed By: #### L [id number] #### [facility] ([facility]) [address] [place] [address] Anesthesiaon 01-18-2023 Anesthesia [id number] Brie,Will marshall 1955 M Date Provider Department Center 01/18/2023 JOSÉ LYNN [facility] [facility] No family history on file [facility] BASIC METABOLIC PANELon Anion gap [Moles/Vol] 16 mmol/L Normal 7-20 [facility] Comment on above: Performed By: #### L [id number] ####[facility] ([facility])[address] [place] [address] Calcium [Mass/Vol] 9.6 mg/dL Normal 8.6-10.3 [facility] Comment on above: Performed By: #### L [id number] ####[facility] ([facility] [place] [address] Chloride [Moles/Vol] 100 mmol/L Normal 98-107 [facility] Comment on above: Performed By: #### L [id number] ####[facility] ([facility])[address] [place] [address] CO2 [Moles/Vol] 23 mmol/L Normal 21-31 [facility] Comment on above: Performed By: #### L [id number] ####[facility] ([facility])[address] [place] [address] Creatinine [Mass/Vol] 7.03 mg/dL High 0.70-1.30 [facility] Comment on above: Performed By: #### L [id number] ####[facility] ([facility])[address] [place] [address] GLOMERULAR FILTRATION RATE ML/MIN/1.73 SQ M.PREDICTED 7.9 mL/min/1.73m*2 Low >60.0 [facility] Comment on above: Result Comment: The [facility]???s estimated glomerular filtration rate (eGFR) will [...] of individuals. Performed By: #### L [id number] ####[facility] ([facility])[address] [place] [address] Glucose [Mass/Vol] 96 mg/dL Normal 70-100 [facility] Comment on above: Performed By: #### L [id number] ####[facility] ([facility])[address] [place] [address] Potassium [Moles/Vol] 3.4 mmol/L Low 3.5-5.1 [facility] Comment on above: Performed By: #### L [id number] ####[facility] ([facility])[address] [place] [address] Sodium [Moles/Vol] 136 mmol/L Normal 136-145 [facility] Comment on above: Performed By: #### L [id number] ####[facility] ([facility])[address] [place] [address] Urea nitrogen [Mass/Vol] 19 mg/dL Normal 7-25 [facility] Comment on above: Performed By: #### L [id number] ####[facility] ([facility])[address] [place] [address] UREA NITROGEN/CREATININE (MASS RATIO) IN SER/PLAS 2.7 Normal [facility] Comment on above: Performed By: #### L [id number] ####[facility] ([facility] [place] [address] CBCon 01-18-2023 Erythrocyte distribution width (RBC) [Ratio] 14.2 % Normal 11.5-15.0 [facility] Comment on above: Performed By: #### L [id number] #### [facility] ([facility] [address] [place] [address] ERYTHROCYTE MEAN CORPUSCULAR HEMOGLOBIN CONCENTRATION (G/DL) BY AUTOMATED 33.2 g/dL Normal 32.0-35.0 [facility] Comment on above: Performed By: #### L [id number] #### [facility] ([facility] [address] [place] [address] Hematocrit (Bld) [Volume fraction] 35.8 % Low 39.0-55.0 [facility] Comment on above: Performed By: #### L [id number] #### [facility] ([facility]) [address] [place] [address] Hemoglobin (Bld) [Mass/Vol] 11.9 g/dL Low 13.0-17.0 [facility] Comment on above: Performed By: #### L [id number] #### [facility] ([facility]) [address] [place] [address] MCH (RBC) [Entitic mass] 31.2 pg Normal 27.0-33.0 [facility] Comment on above: Performed By: #### L [id number] #### [facility] ([facility]) [address] [place] [address] MCV (RBC) [Entitic vol] 93.7 fL Normal 82.0-98.0 [facility] Comment on above: Performed By: #### L [id number] #### [facility] ([facility]) [address] [place] [address] PLATELETS (10*3/UL) IN BLOOD AUTOMATED COUNT 189 10*3/uL Normal 150-400 [facility] Comment on above: Performed By: #### L [id number] #### [facility] ([facility]) [address] [place] [address] RBC (Bld) [#/Vol] 3.82 10*6/uL Low 4.20-5.70 [facility] Comment on above: Performed By: #### L [id number] #### [facility] ([facility]) [address] [place] [address] WBC (Bld) [#/Vol] 6.40 10*3/uL Normal 4.00-10.60 [facility] Comment on above: Performed By: #### L [id number] #### [facility] ([facility]) [address] [place] [address] Labon 01-18-2023 Lab [id number] BrieSyed 1955 M Date Provider Department [place] 01/18/2023 2245-[facility] OPD LAB RESOURCE [facility] No family history on file Normal [facility] MRSA/MSSA DNA NASALon 2022 MRSA DNA Negative Normal Negative [facility] Comment on above: Order Comment: Testi [...] preclude nasal colonization. Performed By: #### L [id number] ####[facility] ([facility])[address] [place] [address] MSSA DNA Negative Normal Negative [facility] Comment on above: Order Comment: Testi [...] preclude nasal colonization. Performed By: #### L [id number] ####[facility] ([facility] [place] [address] NURSNOTEon 01-18-2023 NURSNOTE Prescription filled and sent home with patient. Cont with + thrill and bruit. Stable for DC home. [facility] NURSNOTE DC instructions revi ewed with patient and mother, copy given. [facility] OPNOTEon 01-18-2023 OPNOTE ------ -- Attestation signed by Greg Alarcon MD at 01/18/2023 2:03 PM I was present for the entire procedure. -- DATE OF PROCEDURE: 01/18/23 PATIENT NAME: Seth Murphy SURGEON: * Greg Alarcon - Primary ASSISTANTS: Ana Snyder MD STAFF: Drying Room Supervisor: Clifford Cheek RN Scrub Person: VELVET Schumacher Drying Room Supervisor: NINOSKA CLAYTON Scrub: Ron Gama CST PRE-OP DIAGNOSIS: ESRD POST-OP DIAGNOSIS: same PROCEDURE: Procedure(s): Right Radial Cephalic Fistula Creation - CPT Codes 11679,31464,89323,18811 (Right) ANESTHESIA: General EBL: 5 mL FLUIDS: [...] was present for the entire procedure. Normal [facility] Orders Onlyon 01-18-2023 Orders Only [id number] Syed Murphy 1955 [facility] Provider Department [place] 01/18/2023 ALAN HOWLEL [facility] No family history on file Normal [facility] POCT GLUCOSE METER UNSOLICIT ED RESULTSon 01-18-2023 Glucose [Mass/Vol] 116 mg/dL High 70-105 [facility] Comment on above: Order Comment: Waive d Testing in the ED is performed under the ED CLIA certificate #[id number]. Result Comment: rtat e Performed By: #### L [id number] #### [facility] ([facility]) [address] [place] [address] POCT PERFUSION PANEL UNSOLIC ITED RESULTSon 01-18-2023 CO2 [Moles/Vol] 28.0 mmol/L Normal 21.0-29.0 [facility] Comment on above: Performed By: #### L [id number] ####[facility] ([facility])[address] [place] [address] Glucose [Mass/Vol] 116 mg/dL High 70-105 [facility] Comment on above: Performed By: #### L [id number] ####[facility] ([facility])[address] [place] [address] HCO3 (Bld) [Moles/Vol] 26.8 mmol/L Normal 23.0-28.0 [facility] Comment on above: Performed By: #### L [id number] ####[facility] ([facility]ER)[address] [place] [address] Hematocrit (Bld) [Volume fraction] 36 % Low 38-51 [facility] Comment on above: Performed By: #### L [id number] ####[facility] ([facility])[address] [place] [address] Hemoglobin (Bld) [Mass/Vol] 12.2 g/dL Normal 12.0-17.0 [facility] Comment on above: Performed By: #### L [id number] ####[facility] ([facility])[address] [place] [address] POCT BASE EXCESS 2.0 mmol/L Normal -2.0-3.0 [facility] Comment on above: Performed By: #### L [id number] ####[facility] ([facility])[address] [place] [address] POCT IONIZED CALCIUM 1.24 mmol/L Normal 1.12-1.32 [facility] Comment on above: Performed By: #### L [id number] ####[facility] ([facility])[address] [place] [address] POCT PCO2 43.4 mmHg Normal 41.0-51.0 [facility] Comment on above: Performed By: #### L [id number] ####[facility] ([facility] [address] POCT PH 7.40 Normal 7.31-7.41 [facility] Comment on above: Performed By: #### L [id number] ####[facility] ([facility])[address] [address] POCT PO2 43 mmHg Low 80-105 [facility] Comment on above: Performed By: #### L [id number] ####[facility] ([facility])[address] [place] [address] POCT SO2 78 % Low 95-98 [facility] Comment on above: Performed By: #### L [id number] ####[facility] ([facility] [address] Potassium [Moles/Vol] 3.5 mmol/L Normal 3.5-4.9 [facility] Comment on above: Performed By: #### L [id number] ####[facility] ([facility])[address] [address] Sodium [Moles/Vol] 135 mmol/L Low 138.0-146 . 0 [facility] Comment on above: Performed By: #### L [id number] ####[facility] ([facility])[address] [address] PROTIME-INRon 01-18-2023 INR IN PPP BY COAGULATION ASSAY 1.00 Normal 0.90-1.10 [facility] Comment on above: Result Comment: ACCC [...] 1995;108:231S-246S. Performed By: #### L [id number] #### [facility] ([facility]) [address] [place] [address] PROTHROMBIN TIME (PT) IN PPP BY COAGULATION ASSAY 13.2 Seconds Normal 12.3-14.8 [facility] Comment on above: Performed By: #### L [id number] #### [facility] ([facility]) [address] [place] [address] Orders Onlyon 01-16-2023 Orders Only [id number] Syed Murphy marshall 1955 M Date Provider Department Center 01/16/2023 BEBE VICKERS [facility] [facility] No family history on file Normal [facility] ANESon 01-15-2023 ANES Physical Exam Airway Mallampati: III TM distance: >3 FB Neck ROM: full Cardiovascular Rhythm: regular Rate: normal Dental Pulmonary Plan ASA 3 Moderate Normal [facility] HPon 01-15-2023 HP History Of Present I lllaurie Murphy is a 67 y.o. male with [...] tablet by mouth in the morning. 01/15/2023 oxyCODONE-acetaminophen (Percocet) 5-325 mg tablet Take 1 [...] ESRD (end stage renal disease) on dialysis ([facility]) [N18.6, Z99.2 (ICD-10-CM)] Right: Patent radial inflow artery with volume flow of 214 ml/min. Patent radial artery with biphasic waveforms. Average volume flow within radial to cephalic arteriovenous fistula is 410 ml/min. Patent outflow proximal cephalic vein with no evidence of stenosis or narrowing. Patent subclavian spectral Doppler waveforms. Notes: Indication: ESRD (end stage renal disease) on dialysis ([facility]) [N18.6, Z99.2 (ICD-10-CM)] Right: [...] Problems: End stage renal disease on dialysis (CMS/HCC) Encounter for pre-operative examination 67 yo male with history of right upper extremity AVF who presents today for fistulogram Fistulogram today, if procedure goes well patient can be discharged after procedure. Ana Phan MD PGY-4 Vascular Surgery Resident 01/15/23 [facility] NURSNOTJean Marie 01-15-2023 NURSNOTE RN educated pt on d/ c instructions. RN encouraged pt to voice any questions or concerns. Pt verbalizes no questions or concerns at this time. Pt was wheeled off of unit with all of belongings. [facility] Orders Onlyon 01-10-2023 Orders Only [id number] Cole marshall 1955 [facility] Provider Department [place] 01/10/2023 Nyasia-BEBE CAMPOS [facility] [facility] No family history on file [facility] Follow-Upon 01-09-2023 Follow-Up [id number] TalbotWill marshall 1955 [facility] Provider Department [place] 01/09/2023 Chirag-DEIDRE SANDERSON [facility]END[facility] [facility] No family history on file Level of Service:39636 [place] OFFICE/OUTPATIENT ESTABLISHED LOW MDM 20-29 MIN Reason for Visit and Comments: Follow-up [620797] - radiocephalic AV fistula creation 10/04/22 [facility] Follow-Upon 10-16-2022 Follow-Up [id number] BrieWill marshall 1955 [facility] Provider Department [place] 10/16/2022 116-ROSANNE GAMEZ [facility] [facility] No family history on file Level of Service:56074 [place] OFFICE/OUTPT VISIT,PROCEDURE ONLY Reason for Visit and Comments: Follow-up [620470] - 2 week post op R AVF creation [facility] HPon 10-02-2022 [facility] Vascular Surgery HISTORY & PHYSICAL Reason for Admission: Right AV fistula creation History of Present Illness: Seth Murphy is a 66 y.o. male with PMH significant for ESRD, diabetes, anemia, HTN, HLD, hypothyroidism, [place], and peripheral vascular disease. He presents today [...] Neurological: Negative for dizziness, light-headedness and headaches. Psychiatric/Behavioral: Negative for agitation, behavioral problems, confusion, decreased concentration and dysphoric mood. Past Medical History: Diagnosis Date Anemia Chronic kidney disease Coronary artery disease Diabetes mellitus ([facility]) Heart disease Hyperlipidemia Hypertension Hypothyroidism Myocardial infarction ([facility]/HCC) Peripheral vascular disease ([facility]) Past Surgical History: Procedure Laterality [...] No results found for: INR, PROTIME Assessment: eSth Murphy is a 66 y.o.male with PMH significant for ESRD, diabetes, anemia, HTN, HLD, hypothyroidism, [place], and peripheral vascular disease who presents today for right AV fistula creation. Plan: Will proceed with right AV fistula creation today with Dr. Alarcon Risks, benefits, and alternatives were discussed with patient and he is agreeable Jessee Mitchell MD General Surgery Resident, PGY-1 Vascular Surgery Service 10/02/22 [facility] OPNOTEon 10-02-2022 OPNOTE ------ -- Attestation signed by Greg Alarcon MD at 10/04/2022 12:14 PM I was present for the entire procedure. -- Operative Note Procedure Date: 10/02/2022 Name: Seth Murphy : 1955 Surgeon: Dr. Greg Alarcon MD Resident: Halley Gutierrez MD PGY4 Pre-op Diagnosis: ESRD, need for dialysis access Post-op Diagnosis: same Procedure: right radiocephalic arteriovenous fistula creation Anesthesia Type: General Estimated Blood Loss: 25 mL Complications: none immediate Indications: Seth Murphy is a 66 y.o. male with [...] Gutierrez MD General Surgery PGY4 10/03/2022 Normal [facility] POCT PERFUSION PANEL UNSOLIC ITED RESULTSon 10-02-2022 CO2 [Moles/Vol] 26.0 mmol/L Normal 21.0-29.0 [facility] Comment on above: Performed By: #### L [id number] #### [facility] ([facility]) [address] [place] [address] Glucose [Mass/Vol] 154 mg/dL High 70-105 [facility] Comment on above: Performed By: #### L [id number] #### [facility] ([facility]) [address] [place] [address] HCO3 (Bld) [Moles/Vol] 24.5 mmol/L Normal 23.0-28.0 U [facility] Comment on above: Performed By: #### L [id number] #### [facility] ([facility]) [address] [place] [address] Hematocrit (Bld) [Volume fraction] 43 % Normal 38-51 [facility] Comment on above: Performed By: #### L [id number] #### [facility] ([facility]) [address] [place] [address] Hemoglobin (Bld) [Mass/Vol] 14.6 g/dL Normal 12.0-17.0 [facility] Comment on above: Performed By: #### L [id number] #### [facility] [address] [place] [address] POCT BASE EXCESS -1.0 mmol/L Normal -2.0-3.0 [facility] Comment on above: Performed By: #### L [id number] #### [facility] ([facility]) [address] [place] [address] POCT IONIZED CALCIUM 1.26 mmol/L Normal 1.12-1.32 [facility] Comment on above: Performed By: #### L [id number] #### [facility] ([facility]) [address] [place] [address] POCT PCO2 41.3 mmHg Normal 41.0-51.0 [facility] Comment on above: Performed By: #### L [id number] #### [facility] ([facility]) [address] [place] [address] POCT PH 7.38 Normal 7.31-7.41 [facility] Comment on above: Performed By: #### L [id number] #### [facility] ([facility] [address] [place] [address] POCT PO2 45 mmHg Low 80-105 [facility] Comment on above: Performed By: #### L [id number] #### [facility] ([facility] [address] [place] [address] POCT SO2 79 % Low 95-98 [facility] Comment on above: Performed By: #### L [id number] #### [facility] ([facility] [address] [place] [address] Potassium [Moles/Vol] 4.2 mmol/L Normal 3.5-4.9 [facility] Comment on above: Performed By: #### L [id number] #### [facility] ([facility]) [address] [place] [address] Sodium [Moles/Vol] 137 mmol/L Low 138.0-146 . 0 [facility] Comment on above: Performed By: #### L [id number] #### [facility] ([facility]) [address] [place] [address] US Arterial and Venous Mappi on 08-17-2022 US Arterial and Venous Mapping Exam Date/Time: 08/16/2022 13:32 EDT Reason for Exam: Z01.818;Pre-op Report IMPRESSION: ARTERIAL AND VENOUS MAPPING MEASUREMENTS DETAILED IN THE COMMENT. CLINICAL HISTORY: Pre-op, Z01.818. COMMENT: The right and left upper arterial and extremity venous mapping measurements are detailed below. Patency on the right is demonstrated. Evaluation on the left is limited due to prior surgery. Ordering Provider: Greg Alarcon FINAL REPORT Dictated: 08/17/2022 3:39 pm Seth Berger M.D. Signed (Electronic Signature): 08/17/2022 3:39 pm Signed by: Seth Berger M.D. Transcribed by: JASPREET Technologist: PAUL, Technical Comments Right Lateral Brachial Vn Diameter (cm) : 0.27 Right Brachial Art: Diameter (cm) : 0.64 Right Medial Brachial Vn Diameter (cm) : 0.24 Right Barachial Art Bifurcation Below Elbow Right Brachial Art Waveform Triphasic Right Basilic Vn: Upper arm proximal: Diameter (cm) : 0.58 Depth (cm) : 0.93 Upper arm mid: Diameter (cm) : 0.47 Depth (cm) : 0.57 Upper arm distal: Diameter (cm) : 0.39 Depth (cm) : 0.48 Right Cephalic Vn: Upper arm proximal: Diameter (cm) : 0.57 Depth (cm) : 0.53 Upper arm mid: Diameter (cm) : 0.52 Depth (cm) : 0.39 Upper arm distal: Diameter (cm) : 0.60 Depth (cm) : 0.34 Lower arm proximal: Diameter (cm) : 0.30 Depth (cm) : 0.33 Lower arm mid: Diameter (cm) : 0.46 Depth (cm) : 0.25 Lower arm distal: Diameter (cm) : 0.37 Depth (cm) : 0.22 Right Integration Software Engineer Vn Diameter (cm) : 0.48 Right Lateral Radial Vn Diameter (cm) : 0.22 Right Radial Art at Creation Site Diameter (cm) : 0.37 Right Medial Radial Art Diameter (cm) : 0.23 Technical Comments Right Radial Art Waveform Triphasic Right Lateral Ulnar Vn Diameter (cm) : 0.39 Right Ulnar Art Creation Site Diameter (cm) : 0.54 Right Medial Ulnar Vn Diameter (cm) : 0.26 Right Ulnar Art Waveform Triphasic Right Lateral Radial Vn at Lower Arm Diameter (cm) : 0.12 Right Radial Art at Lower Arm Diameter (cm) : 0.26 Right Medial Radial Vn at Lower Arm Diameter (cm) : 0.17 Right Lateral Ulnar Vn at Lower Arm Diameter (cm) : 0.08 Right Ulnar Art at Lower Arm Diameter (cm) : 0.17 Right Medial Ulnar Vn at Lower Arm Diameter (cm) : 0.09 Left Medial Brachial Vn Diameter (cm) : 0.40 Left Brachial Art Diameter (cm) : 0.56 Left Lateral Brachial Vn Diameter (cm) : 0.26 Left Brachial Art Bifurcation Below Elbow Left Brachial Art Waveform Triphasic Left Basilic Vn Proximal Upper Arm Diameter (cm) : non vis Mid Upper Arm Diameter (cm) : non vis Distal Upper Arm Diameter (cm) : non vis Left Cephalic Vn: Upper arm proximal: Diameter (cm) : Non vis prev fistula Upper arm mid: Diameter (cm) : Non vis prev fistula Upper arm distal: Diameter (cm) : Non vis prev fistula Lower arm proximal: Diameter (cm) : Non vis prev fistula Lower arm mid: Diameter (cm) : Non vis prev fistula Lower arm distal: Diameter (cm) : Non vis prev fistula Left Integration Software Engineer Vn Diameter (cm) : 0.21 Left Medial Radial Vn Diameter (cm) : 0.20 Left Radial Art at Creation Site Diameter (cm) : 0.35 Left Lateral Radial Vn Diameter (cm) : 0.21 Left Radial Art Waveform Triphasic Left Medial Ulnar Vn Diameter (cm) : 0.21 Left Ulnar Art Creation Site Diameter (cm) : 0.28 Left Lateral Ulnar Vn Diameter (cm) : 0.25 Left Ulnar Art Waveform Biphasic Left Medial Ulnar Vn at Lower Arm Diameter (cm) : 0.16 Left Radial Art at Lower Arm Diameter (cm) : 0.28 Left Lateral Radial Vn at Lower Arm Diameter (cm) : 0.10 Left Medial Ulnar Vn at Lower Arm Diameter (cm) : 0.17 Left Ulnar Art at Lower Arm Diameter (cm) : 0.20 Left Lateral Ulnar Vn at Lower Arm Diameter (cm) : 0.14 Normal [facility] Consent for Treatmenton 07-0 Consent for Treatment [id number]#1.00CD:127 Normal [facility] Coding Queryon 08-10-2022 Coding Query - From: Irma Rodriguez RN To: Greg Alarcon MD; Sent: 07/20/2022 14:18:26 EDT ! Subject: Coding Query Due Date/Time: 07/21/2022 14:18:00 EDT Caller Name: SETH MURPHY; Caller Number: H Based on the documentation in the medical record, this patient has undergone Debridement of a wound. The following is also documented in the medical record: Gentle debridement of infected left thrombosed arteriovenous fistula including skin, subcutaneous tissue and fascia down to and including fascia with deep tissue culture, measurements are 5 cm x 2 cm x 1 cm of one wound, the other wound is 4 cm x 2 cm x 1 cm. Based on your medical judgment, can you further clarify the precise type, margins, instruments, region, site and depth of wound debridement utilized in this visit? Select all that apply: Type: Excisional: [___]Excision (cutting away or off without replacement) Non-excisional: [___]Extraction (pulling or stripping by force) [___]Other: In responding to this request, please exercise your independent professional judgement. The fact that a question is asked does not imply that any particular answer is desired or expected. Thank you!irma [id number] From: Greg Alarcon MD To: Irma Rodriguez RN; Sent: 08/10/2022 10:17:09 EDT Subject: RE: Coding Query Caller Name: SETH MURPHY; Caller Number: H This was excisional debridement of the left upper arm, using knife and electrocautery Bovie. Measurements and depth mentioned in the op report Normal [facility] Outside Recordson 08-02-2022 Outside Records [id number]:127 Normal [facility] Consent for Treatmenton 07-12 Consent for Treatment [id number]#[id number]:127 Normal [facility] Heart and Vascular Office/Cl inic Noteon 07-30-2022 Heart and Vascular Office/Clinic Note Chief Complaint inpatient f/u fistula debridment History of Present Illness 66-year-old gentleman status post debridement of left upper extremity thrombosed AV fistula infection. He is doing well. The area healed nicely. I remove the sutures in the office today. Review of Systems PHQ Score Initial Depression Screen Score: 0 Constitutional: no fever, no chills, no sweats, no weakness Skin: no Jaundice, no rash, no lesions, nopetechiae ENMT: no ear pain, no sore throat, no congestion, no hoarseness Respiratory: no shortness of breath, no cough, no orthopnea, no wheezing Cardiovascular: no chest pain, no palpitations, no edema Gastrointestinal: no nausea, no vomiting, no diarrhea, no GI bleeding Genitourinary: no dysuria, no hematuria, no discharge, no pain Musculoskeletal: no back pain, no trauma Neurologic: no headache, no dizziness, no numbness, no weakness Psychiatric: no sleeping problems, no irritability, no mood swings/depression. Heme/Lymph: no bleeding tendency, no bruising tendency, no petechiae, no swollen nodes Allergy/Immunologic: no seasonal allergies, no food allergies, no recurrent infections, no impaired immunity Additional ROS info: Except as noted in the above Review of Systems and in the History of Present Illness all other systems have been reviewed and are negative or noncontributory. Physical Exam Vitals & Measurements HR: 77(Peripheral) BP: 110/60 SpO2: 98% HT: 71 in HT: 180 cm WT: 94 kg WT: 206.8 lb BMI: 29.01 General: alert, no acute distress Skin: warm, dry Head: no trauma, normocephalic Neck: Trachea midline, no adenopathy, no tenderness Eye: normal conjunctiva, sclera clear Cardiovascular: regular rate and rhythm, normal peripheral perfusion Respiratory: Lungs CTA, respirations non labored Chest wall: no deformity. Gastrointestinal: soft, non distended, no tenderness, no guarding. Back: No tenderness, Normal ROM, Normal alignment. Extremities: no edema,no deformity, no trauma Neurological: oriented x 4, LOC appropriate for age, motor strength equal & normal bilaterally, sensation equal & normal bilaterally, speech normal Psychiatric: cooperative, affect appropriate for age, normal judgement, normal psychiatric thoughts. Assessment/Plan 1. Encounter for postoperative wound check (Z48.89: Encounter for other specified surgical aftercare) The wound healed nicely in the left upper extremity. Right upper extremity vein mapping. He needs a right upper extremity dialysis access. Follow-up No qualifying data available Problem List/Past Medical History Ongoing Acute non-ST segment elevation myocardial infarction Acute systolic heart failure Coronary arteriosclerosis Coronary artery disease Diabetes Diabetes mellitus Dyspnea Dysuria Edema of lower extremity Electrocardiogram abnormal ESRD (end stage renal disease) on dialysis Essential hypertension Fatigue Hyperlipidemia Hypertension Hypothyroid Left ventricular hypertrophy MRSA (methicillin resistant staph aureus) culture positive Neuropathy due to diabetes mellitus Pseudophakia Thrombophlebitis Venous insufficiency of leg Venous stasis ulcer of leg Historical Anemia Congestive heart failure Hyperlipidemia Palpitations Thrombosis of superficial vein of lower limb Procedure/Surgical History Arteriovenous fistula (07/16/2022), Insertion of hemodialysis catheter (07/02/2022), Fistulogram with contrast (03/15/2022), Fluoroscopic fistulogram with contrast (11/02/2021), Fistulogram with contrast (08/04/2020), Removal of catheter (07/07/2020), MULTI SLIDE MACHINE TENDER (06/16/2020), AV - Creation of arteriovenous fistula (03/31/2020), AV fistula recirculation (08/06/2019), Abdominal hernia, Cholecystectomy, H/O: tracheostomy, Placement of stent in cardiac conduit. Medications acetaminophen 325 mg Tab, 650 mg= 2 tab(s), Oral, q6hr, PRN aspirin 81 mg Chew Tab, 81 mg= 1 tab(s), Chewed, Daily atorvastatin 40 mg Tab, 40 mg= 1 tab(s), Oral, Daily Celebrate Multivitamin, See Instructions heparin flush 100 units/mL Soln 5 mL, 100 unit(s), IV, q24hr insulin isophane-insulin regular, 14 unit(s), SubCutaneous, BIDAC insulin lispro 100 units/mL injectable solution, 0-10 Units, SubCutaneous, QIDACHS midodrine 5 mg Tab, 5 mg= 1 tab(s), Oral, As Directed polyethylene glycol 3350, 17 gm, Oral, Daily, PRN Synthroid 100 mcg Tab, 100 mcg= 1 tab(s), Oral, Daily vancomycin, PHARMACY TO DOSE, IV, As Directed Vitamin B Complex oral capsule, 1 cap(s), Oral, Daily Allergies Brilinta (Unknown) Coban Bandage (Rash) Social History Alcohol - Denies Alcohol Use, 07/29/2019 Substance Abuse - Denies Substance Abuse, 07/29/2019 Tobacco - Denies Tobacco Use, 07/29/2019 Never (less than 100 in lifetime) Tobacco Use:. Never Smokeless Tobacco Use:., 07/12/2022 Family History Acute myocardial infarction: Mother. Diabetes mellitus type 2: Mother. Heart failure: Mother. Hyperlipidemia: Mother. Primary malign (more content not included)... [facility] Comment on above: Result Comment: Elec tronically Signed By: Dorian FISH, Greg Lopez\.br\Date and Time Signed: 07/30/22 09:29 EDT Outside Recordson 07-30-2022 Outside Records [id number]#[id number]:127 [facility] Physician Orderon 07-30-2022 Physician Order [id number]#1.00CD:127 [facility] Progress Note-Physicianon Progress Note-Physician Assessment/Plan 1. Sepsis (A41.9: Sepsis, unspecified organism) 2/2 AVF infection/cellulitis POA had hypotension, leukocytosis, source of infection. -HR: 111, M temp: 38.5, WBC: 23.8, LA: 5.9, + source -was given fluids with HD yesterday. -IV Atb as below -See below 2. Cellulitis of arm (L03.119: Cellulitis of unspecified part of limb) LUE 2/2 open wounds - pt. failed outpt. keflex--improved. IV vanco/zosyn - 07/12 Consult ID: Vanco Zosyn, Wound cultures positive Final for MRSA -Bl. cx - negative. -Pain mgt., supportive care -Elevate, outline area 3. AV fistula infection (T82.7XXA: Infection and inflammatory reaction due to other cardiac and vascular devices, implants and grafts, initial encounter) Consult vascular: (Dr. Alarcon aware of pt., as he was seen in clinic today) - plan for possible OR on 07/16 - will need NPO order placed on 07/15 -LUE DUS: progressive thrombosis and surrounding soft tissue edema, hyperemia of LUE AV fistual -See above 4. Coronary artery disease (I25.10: Atherosclerotic heart disease of [place] coronary artery without angina pectoris) -Aspirin, atorvastatin, 5. Chronic systolic heart failure (I50.22: Chronic systolic (congestive) heart failure) Stable -Fluid mgt. per HD 6. Insulin dependent type 2 diabetes mellitus (E11.9: Type 2 diabetes mellitus without complications) Accuchecks AC/HS w/ SSI prn -Home regimen: Insulin 70/30 14u HS -Increase insulin 70/30 to 14 u HS - uptitrate as tolerated -Hypoglycemic protocol 7. Peripheral neuropathy (G62.9: Polyneuropathy, unspecified) -Tylenol prn 8. ESRD on dialysis (N18.6: End stage renal disease) On HD M/W/F at [facility] -Consult nephro - pending -BP is soft today - typically takes midodrine 5mg on HD only for now will increase to daily dosing until infection improves -Discussed labs w/ HD nurse Margarito who will review labs with Dr. Walker for HD options today 9. Hypothyroidism (E03.9: Hypothyroidism, unspecified) -Levothyroxine 10. Venous insufficiency of both lower extremities (I87.2: Venous insufficiency (chronic) (peripheral)) -Aspirin, atorvastatin 11. Venous stasis ulcer (I83.009: Varicose veins of unspecified lower extremity with ulcer of unspecified site) Chronic - POA -Consult wound care: Left aVF swab with Betadine and cover with gauze and Kerlix daily, right heel, Aquacel Ag every other day 12. On deep vein thrombosis (DVT) prophylaxis (Z79.899: Other chcf (current) drug therapy) -Heparin sq with early ambulation -Plan discussed w/ patient, nursing staff and CRM. This report was transcribed using voice recognition software. Every effort was made to ensure accuracy, however, inadvertently computerized carroting machine operator mistakes may be present. Subjective Pt seen at beside this AM. States that he is tired this AM. States he isn't sleeping well at night. Denies CP, SOB, N/V. Pending OR in AM and HD. Objective Vitals & Measurements T: 36.8 ?C(Oral) TMIN: 36.2 ?C(Oral) TMAX: 36.9 ?C(Oral) HR: 60(Monitored) RR: 20 BP: 126/57 SpO2: 92% WT: 98.2 kg Intake & Output This visit (24 hour periods starting at 07:00 EDT) 07/15/22 * 07/14/22 07/13/22 Total Summary Intake mL -- 110 50 Output mL -- -- -- Fluid Balance -- 110 50 Intake (2) Oral Intake mL -- 60 -- Sodium Chloride 0.9%, piperacillin-tazobactam mL -- 50 50 Total -- 110 50 Output (0) Counts (1) Stool Count -- 3 -- * This column has not completed the indicated time period. Physical Exam General: Calm, able to communicate needs, Head: Normocephalic/atraumatic Eyes: Pupils equal, round. Conjunctivae and sclerae normal. HEENT: Mucous membrane moist. Tongue normal Neck: Trachea midline, neck supple, Chest: No chest wall deformity, no chest wall tenderness Lungs: CTA sanders Cardio: Normal rate, apical is regular, no edema. Pulses: Normal capillary refill Abdomen: Soft, non-distended, non-tender, normal BS Musculoskeletal: No deformity or scoliosis noted. Integumentary: Warm, dry, L chest permacath, LUE fistula site is red, erythemic, indurated, 2 open sites noted with creamy white drainage from distal open area, site is mildly warm to touch, tender to palpation, + radial pulse; venous stasis ulcer noted. Extremity: No clubbing, Neurologic: Alert, oriented x 4, follows commands, Mental status: Pleasant & cooperative, approp. affect Lab Results WBC: 5.5 E9/L (07/15/22 06:07:00) RBC: 2.7 E12/L Low (07/15/22 06:07:00) HGB: 8 gm/dL Low (07/15/22 06:07:00) Hct: 24.3 % Low (07/15/22 06:07:00) MCV: 90.1 fL (07/15/22 06:07:00) MCH: 29.7 pg (07/15/22 06:07:00) MCHC: 32.9 gm/dL (07/15/22 06:07:00) RDW: 16.7 % High (07/15/22 06:07:00) Platelet: 219 E9/L (07/15/22 06:07:00) MPV: 7.9 fL (07/15/22 06:07:00) Neutro Auto: 67.7 % (07/15/22 06:07:00) Lymph Auto: 11.3 % Low (07/15/22 06:07:00) Stokes Auto: 16.4 % High (07/15/22 06:07:00) (more content not included)... [facility] Comment on above: Result Comment: Elec tronically Signed By: Vijaya SANDOVAL\.br\Date and Time Signed: 07/15/22 12:01 EDT\.br\Electronically Co-Signed By: Vijaya SANDOVAL\.br\Date and Time Co-Signed: 07/15/22 12:02 EDT\.br\Electronically Co-Signed By: Michael FISH, Fuentes Lemons\.br\Date and Time Co-Signed: 07/23/22 07:37 EDT Discharge Instructionson Discharge Instructions [id number]#[id number]:127 Normal [facility] Monitor Recordon 07-20-2022 Monitor Record [id number]#1.00CD:127 Normal [facility] Transfer Documentson 023 Transfer Documents [id number]#[id number]:127 Normal [facility] BMPon 07-19-2022 Creatinine [Mass/Vol] 7.7 mg/dL Abnormal 0.5-1.3 [facility] Comment on above: Result Comment: Crit ical Result verified by previous result\Critical Result S_CREA:7.70 Called to [facility] by CATHY LERNER And Read Back For Confirmation at: 07/19/2022 08:27:40\Result S_CREA:7.70 Called to [facility] by CATHY LERNER And Read Back For Confirmation at: 07/19/2022 08:27:40 Performed By: #### 1 [id number], [id number], 9195693, 9006383 #### [facility] [address] [place] [address] Anion gap [Moles/Vol] 9 mmol/L Normal 6-16 [facility] Comment on above: Performed By: #### 1 [id number], 4188829, 6607498, 2178480 #### [facility] [address] [place] [address] Calcium [Mass/Vol] 8.0 mg/dL Low 8.9-11.1 [facility] Comment on above: Performed By: #### 1 5454744, 3769205, 4413532, 8683489 #### [facility] [address] [place] [address] Chloride [Moles/Vol] 104 mmol/L Normal 101-111 [facility] Comment on above: Performed By: #### 1 7042083, 8791909, 6062137, 8083365 #### [facility] [address] [place] [address] CO2 [Moles/Vol] 27 mmol/L Normal 21-31 [facility] Comment on above: Performed By: #### 1 5436062, 6671713, 7691659, 8935830 #### [facility] [address] [place] [address] Glucose [Mass/Vol] 180 mg/dL Normal 55-199 [facility] Comment on above: Result Comment: If t his glucose result represents a fasting glucose, interpretation should refer to the following reference range: 55-99 mg/dL Performed By: #### 1 5994824, 9646026, 0638065, 3711960 #### [facility] [address] [place] [address] Potassium [Moles/Vol] 3.7 mmol/L Normal 3.5-5.3 [facility] Comment on above: Performed By: #### 1 4022894, 5132701, 9373529, 3789251 #### [facility] [address] [place] [address] Sodium [Moles/Vol] 136 mmol/L Normal 135-145 [facility] Comment on above: Performed By: #### 1 9221362, 5547853, 8686876, 8182996 #### [facility] [address] [place] [address] Urea nitrogen [Mass/Vol] 18 mg/dL Normal 5-21 [facility] Comment on above: Performed By: #### 1 4411062, 0715918, 5489027, 1565160 #### [facility] [address] [place] [address] Urea nitrogen/Creatinine [Mass ratio] 2 No Units Low 10-20 [facility] Comment on above: Performed By: #### 1 0914360, 3012629, 2991156, 3394920 #### [facility] [address] [place] [address] CBC w/Indiceson 07-19-2022 Erythrocyte distribution width (RBC) [Ratio] 17.6 % High 10.9-14.2 [facility] Comment on above: Performed By: #### 1 9878232, 0517546, 3860129, 3205377 #### [facility] [address] [place] [address] Hematocrit (Bld) [Volume fraction] 25.0 % Low 37.7-49.0 [facility] Comment on above: Performed By: #### 1 6282827, 4128548, 7042870, 7252767 #### [facility] [address] [place] [address] Hemoglobin (Bld) [Mass/Vol] 8.3 g/dL Low 13.5-17.5 [facility] Comment on above: Performed By: #### 1 6513642, 6988540, 2211712, 0530290 #### [facility] [address] [place] [address] MCH (RBC) [Entitic mass] 30.0 pg Normal 27.0-34.0 [facility] Comment on above: Performed By: #### 1 1361758, 1868050, 9400126, 2369473 #### [facility] [address] [place] [address] MCHC (RBC) [Mass/Vol] 33.4 g/dL Normal 31.4-36.0 [facility] Comment on above: Performed By: #### 1 7976144, 7878035, 1306638, 3623254 #### [facility] [address] [place] [address] MCV (RBC) [Entitic vol] 90.1 fL Normal 80.0-100.0 [facility] Comment on above: Performed By: #### 1 7979885, 6433991, 7098692, 8307998 #### [facility] [address] [place] [address] Platelet mean volume (Bld) [Entitic vol] 8.0 fL Normal 6.4-10.8 [facility] Comment on above: Performed By: #### 1 7857487, 7770864, 7348268, 4164865 #### [facility] [address] [place] [address] Platelets (Bld) [#/Vol] 204.0 E9/L Normal 150.0-500. 0 [facility] Comment on above: Performed By: #### 1 3412472, 0619677, 8512139, 3636118 #### [facility] [address] [place] [address] RBC (Bld) [#/Vol] 2.8 E12/L Low 4.3-5.9 [facility] Comment on above: Performed By: #### 1 1264768, 1734074, 4492597, 2178661 #### [facility] [address] [place] [address] WBC corrected for nucl RBC Auto (Bld) [#/Vol] 6.1 E9/L Normal 4.0-11.0 [facility] Comment on above: Performed By: #### 1 1287093, 9982908, 3128269, 5820857 #### [facility] [address] [place] [address] Capillary Glucose POCon 06-0 Glucose [Mass/Vol] 198 mg/dL High 55-99 [facility] Comment on above: Result Comment: Run Lab Confirmation No Coverage Given Insulin Started Performed By: #### 1 [id number], 1089234, 5338455, 3168881 #### [facility] [address] [place] [address] Glucose [Mass/Vol] 187 mg/dL High 55-99 [facility] Comment on above: Result Comment: Ambrocio vargas RN/ Performed By: #### 1 7914134, 1561183, 5097370, 9044445 #### [facility] [address] [place] [address] Glucose [Mass/Vol] 110 mg/dL High 55-99 [facility] Comment on above: Result Comment: Ambrocio vargas RN/ Performed By: #### 2 [id number] ####[facility] [address] [place] [address] Glucose [Mass/Vol] 162 mg/dL High 55-99 [facility] Comment on above: Result Comment: Ambrocio vargas RN/ Performed By: #### 2 [id number] ####[facility] [address] [place] [address] Inpatient Clinical Summaryon 07-19-2022 Inpatient Clinical Summary [address] [address] Clinical Summary Person Information: Name: SETH MURPHY Age: 66 Years : 1955 Sex: Male PCP: Nav Alejo MD Marital Status: Race: White Ethnicity: Non- or Language: Chilean Visit Id: Visit Reason: INFECTION Speciality: Acuity: Enc Type: Inpatient Med Service: Medical Arrival: 07/12/2022 14:01:25 Discharge: Dispo Type: Address: [address] [place] [id number] Provider Notes: Diagnosis: 1:Sepsis; 2:Cellulitis of arm; 3:AV fistula infection; 4:Coronary artery disease; 5:Chronic systolic heart failure; 6:Insulin dependent type 2 diabetes mellitus; 7:Peripheral neuropathy; 8:ESRD on dialysis; 9:Hypothyroidism; 10:Venous insufficiency of both lower extremities; 11:Venous stasis ulcer; 12:On deep vein thrombosis (DVT) prophylaxis Problems Active MRSA (methicillin resistant staph aureus) culture positive (07/12/2022) Diabetes Hypertension Hyperlipidemia Coronary artery disease Hypothyroid ESRD (end stage renal disease) on dialysis Thrombophlebitis (05/06/2018) Venous insufficiency of leg (05/06/2018) Venous stasis ulcer of leg (05/06/2018) Pseudophakia (05/06/2018) Left ventricular hypertrophy (05/06/2018) Fatigue (05/06/2018) Essential hypertension (05/06/2018) Dyspnea (05/06/2018) Edema of lower extremity (05/06/2018) Dysuria (05/06/2018) Neuropathy due to diabetes mellitus (05/06/2018) Diabetes mellitus (08/22/2018) Coronary arteriosclerosis (05/06/2018) Acute non-ST segment elevation myocardial infarction (04/21/2018) Acute systolic heart failure (04/21/2018) Electrocardiogram abnormal (05/06/2018) Smoking Status: Never Smoker Functional Status: Sensory Deficits: History of Falls: Within last one year Mobility Assistance Prior to Admission: Total assistance ADLs: Moderate assistance Current Level of Assistance for Self-Care/Mobility: Cognitive Status: Allergies Brilinta (Unknown) Coban Bandage (Rash) Measurements: Height: 180.34 cm Weight: 97.2 kg Blood Pressure: 111 mmHg / 54 mmHg BMI: 28.75 kg/m2 Procedures Arteriovenous fistula (07/16/2022) Immunizations No Immunizations Documented This Visit Final Med List: acetaminophen (acetaminophen 325 mg Tab) 2 Tablets By Mouth every 6 hours as needed Pain. not to exceed 4000 mg/day. acetaminophen-oxycodone (Percocet 5 mg-325 mg oral tablet) 1 Tablets By Mouth every 6 hours as needed Pain for 3 Days. Refills: 0. aspirin (aspirin 81 mg Chew Tab) 1 Tablets Chewed every day. atorvastatin (atorvastatin 40 mg Tab) 1 Tablets By Mouth every day. heparin flush (heparin flush 100 units/mL Soln 5 mL) 100 Units Intravenous every 24 hours. Follow [facility] PICC line flushing policy. Refills: 0. insulin isophane-insulin regular 14 Units Subcutaneous twice a day (before meals). insulin lispro (insulin lispro 100 units/mL injectable solution) 0-10 Units Subcutaneous four times a day (before meals and at bedtime). levothyroxine (Synthroid 100 mcg Tab) 1 Tablets By Mouth every day. midodrine (midodrine 5 mg Tab) 1 Tablets By Mouth As Directed. On dialysis days only. multivitamin (Vitamin B Complex oral capsule) 1 Capsules By Mouth every day. multivitamin with minerals (Celebrate Multivitamin) polyethylene glycol 3350 17 Gram By Mouth every day as needed Constipation. vancomycin PHARMACY TO DOSE Intravenous As Directed. IV vanco 500mg on 07/20. Doses to be given on HD days at HD center. Rx. to dose prior to each dose given. IV vanco x 4 wks - first dose given on 07/12/22.. Care Team Members: Attending Physician: Michael FISH, Fuentes Lemons Consulting Physician: Alfredo Acosta M.D; Otto FISH, Loco Roman; Dorian FISH, Greg Lopez; Aaron FISH, Cristino Referring Physician: Follow up: With: Address: When: Greg Alarcno [address] [id number] [facility] (1) Within 7 to 10 days With: Address: When: Alfredo Acosta [address] [place] [address] Business (1) Within 1 to 2 weeks With: Address: When: [facility] [phone] Within 5 to 7 days With: Address: When: Nav Alejo [address] [facility], [place] [address] Business (1) Patient Education Information: Cellulitis, Adult, Ibds-ev-Dpvz; Antibiotic Medicine, Adult, [facility] To Dose Normal [facility] Inpatient Patient Summaryon 07-19-2022 Inpatient Patient Summary SETH MURPHY :1955 Visit Date:07/12/2022 Inpatient Discharge Instructions Your Care Team Admitting Physician - Michael FISH, Fuentes Lemons Consulting Physician - Aaron FISH, Cristino Acosta M.D, Alfredo Lemons Reason for Your Visit r/o infection of fistula Your Diagnosis Sepsis Cellulitis of arm AV fistula infection Coronary artery disease Chronic systolic heart failure Insulin dependent type 2 diabetes mellitus Peripheral neuropathy ESRD on dialysis Hypothyroidism Venous insufficiency of both lower extremities Venous stasis ulcer On deep vein thrombosis (DVT) prophylaxis Tests Performed Automated Diff BMP Capillary Glucose POC CBC w/ Auto Diff CBC w/ Indices CMP CRP eGFR Hemoglobin and Hematocrit Hepatitis B Surface Antigen Lactic Acid Vancomycin Level Trough -- Results Pending -- WBC Cardiac Echo US Extremity Non-Vascular Limited Left XR Chest 2 Views Please visit your patient portal for your results or contact your primary care physician. This Is Your Medications List acetaminophen (acetaminophen 325 mg Tab) acetaminophen-oxycodone (Percocet 5 mg-325 mg oral tablet) aspirin (aspirin 81 mg Chew Tab) atorvastatin (atorvastatin 40 mg Tab) heparin flush (heparin flush 100 units/mL Soln 5 mL) insulin isophane-insulin regular insulin lispro (insulin lispro 100 units/mL injectable solution) levothyroxine (Synthroid 100 mcg Tab) midodrine (midodrine 5 mg Tab) multivitamin (Vitamin B Complex oral capsule) multivitamin with minerals (Celebrate Multivitamin) polyethylene glycol 3350 vancomycin [Image Removed: STOP]Stop taking these medications cephalexin (Keflex 500 mg Cap) darbepoetin thomas (Aranesp 25 mcg/0.42 mL Injection) doxazosin (doxazosin 1 mg oral tablet) hydrALAZINE (hydrALAZINE 50 mg Tab) insulin regular (Novolin R) Procedure History Arteriovenous fistula (07/16/2022), Insertion of hemodialysis catheter (07/02/2022), Fistulogram with contrast (03/15/2022), Fluoroscopic fistulogram with contrast (11/02/2021), Fistulogram with contrast (08/04/2020), Removal of catheter (07/07/2020), MULTI SLIDE MACHINE TENDER (06/16/2020), AV - Creation of arteriovenous fistula (03/31/2020), AV fistula recirculation (08/06/2019), Abdominal hernia, Cholecystectomy, H/O: tracheostomy, Placement of stent in cardiac conduit. Discharge Vitals Temperature (Oral) 36.4 ?C Heart Rate (Monitored) 80 Respiratory Rate 18 Blood Pressure 111/54 Weight 97.2 kg What to do next Instructions From Your Doctor Event Name Event Result Discharge Activity Ambulate as tolerated, Activity as tolerated Discharge Restrictions No driving Discharge Diet(s) Renal Pending Diagnostic Test Results None Pharmacy Information [facility] [place] Discharge Instructions Follow up appts as writtenLeft arm incision daily dry dressing with 4 x 4 and paper tape, wet to dry dressing around sutures twice a day to left postop fistula site, every other day cleanse right heel with saline, apply Aquacel Ag, gauze, New Follow Up Appointments after Discharge Follow Up with Greg Alarcon When: Within 7 to 10 days Where: [address] [place] [address]- Business (1) Follow Up with Alfredo Acosta When: Within 1 to 2 weeks Where: [address] [place] [address]- Business (1) [facility]: Denis [phone] When: Within 5 to 7 days Follow Up with Nav Alejo When: In 0 days Where: [address] [facility] [place] [address]- Business (1) Medications What How Much When Why Instructions Next Dose New acetaminophen (acetaminophen 325 mg Tab) 2 Tablets By Mouth Every 6 hours as needed for Pain not to exceed 4000 mg/ day resume New acetaminophen-oxycodone (Percocet 5 mg-325 mg oral tablet) 1 Tablets By Mouth Every 6 hours as needed for Pain AV fistula infection Duration: 3 Days Printed Prescription resume New heparin flush (heparin flush 100 units/ mL Soln 5 mL) 100 Units Intravenous Every 24 hours Follow SNF PICC line flushing policy Printed Prescription resume New vancomycin PHARMACY TO DOSE Intravenous As Directed IV vanco 500mg on . Doses to be given on HD days at HD center. Rx. to dose prior to each dose given. IV vanco x 4 wks - first dose given on . as directed Changed insulin isophane-insulin regular 14 Units Subcutaneous Twice a day (before meals) 07/19 9PM Changed insulin lispro (insulin lispro 100 units/ mL injectable solution) 0-10 Units Subcutaneous Four times a day (before meals and at bedtime) 07/19 9PM Unchanged aspirin (aspirin 81 mg Chew Tab) 1 Tablets Chewed Every day 07/20 9AM Unchanged atorvastatin (atorvastatin 40 mg Tab) 1 Tablets By Mouth Every day 07/20 9AM Unchanged levothyroxine (Synthroid 100 mcg Tab) 1 Tablets By Mouth Every day 07/20 6:30 AM Unchanged midodrine (midodrine 5 mg Tab) 1 Tablets By M (more content not included)... Normal [facility] Inpatient Patient Summary [place] [id number] Patient Discharge Instructions PERSON INFORMATION Name: SETH MURPHY Date of : 1955 Current Date: 07/19/2022 17:08:10 PHYSICIANS Admitting Physician: Fuentes Rodriguez MD Primary Care Physician: Nav Alejo MD PCP Comment: Discharge Diagnosis: 1:Sepsis; 2:Cellulitis of arm; 3:AV fistula infection; 4:Coronary artery disease; 5:Chronic systolic heart failure; 6:Insulin dependent type 2 diabetes mellitus; 7:Peripheral neuropathy; 8:ESRD on dialysis; 9:Hypothyroidism; 10:Venous insufficiency of both lower extremities; 11:Venous stasis ulcer; 12:On deep vein thrombosis (DVT) prophylaxis Condition at Discharge: SETH Carbone has been given the following list of follow-up instructions, prescriptions, and patient education materials: PATIENT FOLLOW-UP INFORMATION Diet: Renal Discharge Activity: Ambulate as tolerated, Activity as tolerated Discharge Restrictions: No driving Wound Care Instructions: Remove Your Dressing In Days Call Your Doctor For: IF UNABLE TO CONTACT YOUR PHYSICIAN AND YOU FEEL IT IS AN EMERGENCY, GO TO THE NEAREST EMERGENCY ROOM OR CALL 911 Home Treatment: Hemodialysis Devices/Equipment: Blood glucose monitor, Cane, Elevated toilet seat, Shower chair, Walker Special Services: Additional Instructions: Follow up appts as written Left arm incision daily dry dressing with 4 x 4 and paper tape, wet to dry dressing around sutures twice a day to left postop fistula site, every other day cleanse right heel with saline, apply Aquacel Ag, gauze, Primary Care Physician to provide the following pending test results: None Follow up: With: Address: When: Greg Alarcon [address] [place] [address] Business (1) Within 7 to 10 days With: Address: When: Alfredo Acosta [address] [place] [address] [place] [address] Business (1) Within 1 to 2 weeks With: Address: When: [facility]: [facility] [phone] Within 5 to 7 days With: Address: When: Nav Alejo [address] [place] [address], [place] [address] Business (1) In the event that this physician does not participate in your insurance network, please consult with your insurance company to find a nearby participating provider. Comment: BRIE Vilchis WILLIAM, have received the attached patient education materials/instructions and have verbalized understanding: Patient Signature __ Date Clinican/Nurse Signature Date HERE ARE THE MEDICATION CHANGES THAT OCCURRED DURING YOUR HOSPITAL STAY New Medications Printed Prescriptions acetaminophen-oxycodone (Percocet 5 mg-325 mg oral tablet) 1 Tablets By Mouth every 6 hours as needed Pain for 3 Days. Refills: 0. Last Dose: N ext Dose: heparin flush (heparin flush 100 units/mL Soln 5 mL) 100 Units Intravenous every 24 hours. Follow [facility] PICC line flushing policy. Refills: 0. Last Dose: N ext Dose: Other Medications acetaminophen (acetaminophen 325 mg Tab) 2 Tablets By Mouth every 6 hours as needed Pain. not to exceed 4000 mg/day. Last Dose: N ext Dose: vancomycin PHARMACY TO DOSE Intravenous As Directed. IV vanco 500mg on 07/20. Doses to be given on HD days at HD center. Rx. to dose prior to each dose given. IV vanco x 4 wks - first dose given on 07/12/22.. Last Dose: N ext Dose: Medications to Continue Taking That Have Changed Other Medications START: insulin isophane-insulin regular 14 Units Subcutaneous twice a day (before meals). Last Dose: N ext Dose: STOP: insulin isophane-insulin regular (Novolin 70/30) 30 units in am, 14 units bedtime. START: insulin lispro (insulin lispro 100 units/mL injectable solution) 0-10 Units Subcutaneous four times a day (before meals and at bedtime). Last Dose: N ext Dose: STOP: insulin lispro (Humalog KwikPen) sliding scale tidhs. Medications to Continue with No Changes Other Medications aspirin (aspirin 81 mg Chew Tab) 1 Tablets Chewed every day. Last Dose: N ext Dose: atorvastatin (atorvastatin 40 mg Tab) 1 Tablets By Mouth every day. Last Dose: N ext Dose: levothyroxine (Synthroid 100 mcg Tab) 1 Tablets By Mouth every day. Last Dose: N ext Dose: midodrine (midodrine 5 mg Tab) 1 Tablets By Mouth As Directed. On dialysis days only. Last Dose: N ext Dose: multivitamin (Vitamin B Complex oral capsule) 1 Capsules By Mouth ever (more content not included)... Normal [facility] Monitor Recordon 07-19-2022 Monitor Record [id number]#[id number]:127 Normal [facility] Monitor Record 170.. [id number]#1.00CD:127 Normal [facility] Monitor Record [id number].. [id number]#[id number]:127 Normal [facility] Monitor Record [id number]#[id number]:127 Normal [facility] Monitor Record [id number]#1.00CD:127 Normal [facility] Progress Note-Nurseon 2022 Progress Note-Nurse [id number]#[id number]:127 [facility] Progress Note-Nurse [id number]#[id number]:127 [facility] Progress Note-Physicianon Progress Note-Physician Patient: SETH MURPHY Age: 66 years Sex: Male : 1955 Associated Diagnoses: None Author: Aaron FISH Cristino Chief Complaint Interval History Predialysis weight 96.7 kg yesterday. Post HD weight of 93.2kg. Blood cultures remain pending. Review of Systems Constitutional: Negative except as documented in history of present illness. Eye: No double vision, No visual disturbances. Ear/Nose/Mouth/Throat Respiratory: No shortness of breath, No cough, No sputum production, No hemoptysis. Cardiovascular: No chest pain, No palpitations. Gastrointestinal: No nausea, No vomiting, No diarrhea, No abdominal pain. Genitourinary: No dysuria, No hematuria. Hematology/Lymphatics: No bleeding tendency, No swollen lymph glands. Endocrine: No excessive thirst, No polyuria, No cold intolerance, No heat intolerance. Immunologic: No recurrent fevers, No recurrent infections. Musculoskeletal: No neck pain, No joint pain, No muscle pain. Integumentary: No rash, No pruritus, No skin lesion. Neurologic: Alert and oriented X4, No numbness, No tingling. Psychiatric: No anxiety, No depression, No frankie. Health Status Allergies: Allergic Reactions (Selected) Severity Not Documented Brilinta- Unknown. Coban Bandage- Rash., Allergies (2) Active Reaction Brilinta Unknown Coban Bandage Rash Current medications: (Selected) Inpatient Medications Ordered Dextrose 50% Soln-IV: 50 mL, Soln-IV, IV Push, Once PRN Blood glucose, Routine, Start date 07/12/22 16:48:00 EDT HumaLOG Sliding Scale: 0-10 Units, Injection-Insulin, SubCutaneous, QIDACHS, Routine, Start date 07/12/22 21:00:00 EDT Humulin 70/30 10 mL Injection-Insulin: 14 unit(s) = 0.14 mL, Injection-Insulin, SubCutaneous, Bedtime, Routine, Start date 07/13/22 21:00:00 EDT Humulin 70/30 10 mL Injection-Insulin: 14 unit(s) = 0.14 mL, Injection-Insulin, SubCutaneous, Daily, Routine, Start date 07/17/22 9:00:00 EDT Percocet 5 mg-325 mg oral tablet: 1 tab(s), Tab, Oral, q6hr PRN Pain, Routine, Start date 07/17/22 14:36:00 EDT Sodium Chloride 0.9% IV Nirmala 1000 mL 1,000 mL: 1,000 mL, IV, titrate, Routine, Start date 07/18/22 10:25:00 EDT, Total volume (mL): 1,000, 96.8 kg, 2.2, m2 Sodium Chloride 0.9% IV Nirmala 250 mL bag 250 mL: 250 mL, IV, 20 mL/hr, Other (see comment), Routine, Start date 07/16/22 5:52:00 EDT, 12.5 hour(s), Total volume (mL): 250, 96.8 kg, 2.2, m2 Synthroid 100 mcg Tab: 100 mcg = 1 tab(s), Tab, Oral, Daily, Routine, Start date 07/13/22 6:30:00 EDT, 07/12/22 16:22:00 EDT Therapeutic Multiple Vitamins with Minerals Tab: 1 tab(s), Tab, Oral, Daily, Routine, Start date 07/13/22 9:00:00 EDT Zofran 4 mg/2 mL Injection: 4 mg = 2 mL, Injection, IV Push, q6hr PRN Nausea, Routine, Start date 07/12/22 15:58:00 EDT, 07/12/22 15:58:00 EDT acetaminophen 325 mg Tab: 650 mg = 2 tab(s), Tab, Oral, q6hr PRN Pain, Routine, Start date 07/12/22 15:58:00 EDT, 07/12/22 15:58:00 EDT aspirin 81 mg Chew Tab: 81 mg = 1 tab(s), Tab-Chew, Chewed, Daily, Routine, Start date 07/13/22 9:00:00 EDT, 07/12/22 16:22:00 EDT atorvastatin 40 mg Tab: 40 mg = 1 tab(s), Tab, Oral, Daily, Routine, Start date 07/13/22 9:00:00 EDT, 07/12/22 16:22:00 EDT epoetin thomas-epbx 10,000 units/mL Inj: 20,000 unit(s) = 2 mL, Injection, IV Push, MonWedFri, Routine, Start date 07/16/22 15:00:00 EDT, give on HD heparin 5000 units/mL Inj: 5,000 unit(s) = 1 mL, Injection, SubCutaneous, BID for 30 day(s), Stop date 08/11/22 20:59:00 EDT, Routine, Start date 07/12/22 21:00:00 EDT, 07/12/22 16:46:00 EDT midodrine 5 mg Tab: 5 mg = 1 tab(s), Tab, Oral, Daily, Routine, Start date 07/14/22 9:00:00 EDT, 07/13/22 13:22:00 EDT polyethylene glycol 3350 17 gram packet: 17 gm = 1 EA, Powder-Recon, Oral, Daily PRN Constipation, Routine, Start date 07/12/22 16:23:00 EDT, 07/12/22 16:23:00 EDT vancomycin IV PHARMACY TO DOSE: PHARMACY TO DOSE, Injection, IV, As Directed, Routine, Start date 07/12/22 15:58:00 EDT Prescriptions Prescribed Keflex 500 mg Cap: 500 mg = 1 cap(s), Oral, q12hr, # 20 cap(s), Refills(s) 0, Pharmacy: [facility]/pharmacy #[id number], 178, cm, 07/09/22 17:32:00 EDT, Height/Length Dosing, 92, kg, 07/09/22 17:32:00 EDT, Weight Dosing Documented Medications Documented Aranesp 25 mcg/0.42 mL Injection: Refills(s) 0 Celebrate Multivitamin: See Instructions, Refill(s) 0 Humalog KwikPen: See Instructions, sliding scale tidhs, Refills(s) 0 Novolin 70/30: See Instructions, Refill(s) 0, 30 units in am, 14 units bedtime, Blood glucose Novolin R: Refills(s) 0 Synthroid 100 mcg Tab: 100 microgram = 1 tab(s), Oral, Daily, Refills(s) 0, Thyroid Vitamin B Complex oral capsule: 1 cap(s), Oral, Daily, Refill(s) 0, Prophylaxis aspirin 81 mg Chew Tab: 81 mg = 1 tab(s), Chewed, Daily, Refills(s) 0, Blood Thinner atorvastatin 40 mg Tab: 40 mg = 1 tab(s), Oral, Daily, Refills(s) 0, High cholesterol doxazosin 1 mg oral tablet: 1 mg = 1 tab(s), Oral, Daily, Refills(s) 0, Other (see comment) hydrALAZ (more content not included)... Normal [facility] Comment on above: Result Comment: Elec tronically Signed By: Aaron FISH, Cristino\.br\Date and Time Signed: 07/19/22 09:34 EDT eGFRon 07-19-2022 GFR/1.73 sq M.predicted among non-blacks MDRD (S/P/Bld) [Vol rate/Area] 7 mL/min/1.73 m2 Low >=59 [facility] Comment on above: Order Comment: Order added by Discern Expert. Result Comment: Painter Maintenance jm kidney disease could be indicated at eGFR's of less than 60 mL/min/1.73m2. Kidney failure is indicated at less than 15 mL/min/1.73m2. Performed By: #### 1 [id number], [id number], 1084341, 0375251 #### [facility] [address] [place] [address] BMPon 07-18-2022 Creatinine [Mass/Vol] 9.7 mg/dL Abnormal 0.5-1.3 Fis [facility] Comment on above: Result Comment: Crit ical Result verified by repeat analysis\Critical Result S_CREA:9.70 Called to MARC SRINIVASAN AT 3S by DK DAVIES And Read Back For Confirmation at: 07/18/2022 07:11:52\Result S_CREA:9.70 Called to MARC SRINIVASAN AT 3S by DK DAVIES And Read Back For Confirmation at: 07/18/2022 07:11:52 Performed By: #### 1 [id number], 6287389, 1912939, [id number] #### [facility] [address] [place] [address] Anion gap [Moles/Vol] 15 mmol/L Normal 6-16 [facility] Comment on above: Performed By: #### 1 [id number], 9233521, 6054856, 8607614 #### [facility] [address] [place] [address] Calcium [Mass/Vol] 8.1 mg/dL Low 8.9-11.1 [facility] Comment on above: Performed By: #### 1 8071360, 4185362, 2390893, 3439726 #### [facility] [address] [facility] [place] [address] Chloride [Moles/Vol] 104 mmol/L Normal 101-111 [facility] Comment on above: Performed By: #### 1 1806841, 7265196, 2721713, 3795578 #### [facility] [address] [place] [address] CO2 [Moles/Vol] 23 mmol/L Normal 21-31 [facility] Comment on above: Performed By: #### 1 [id number], 7173429, 0682572, 3537869 #### [facility] [address] [place] [address] Glucose [Mass/Vol] 131 mg/dL Normal 55-199 [facility] Comment on above: Result Comment: If t his glucose result represents a fasting glucose, interpretation should refer to the following reference range: 55-99 mg/dL Performed By: #### 1 [id number], 7099719, 0910622, 1142149 #### [facility] [address] [place] [address] Potassium [Moles/Vol] 3.8 mmol/L Normal 3.5-5.3 [facility] Comment on above: Performed By: #### 1 1058846, 6514790, 4384018, 2756601 #### [facility] [address] [place] [address] Sodium [Moles/Vol] 138 mmol/L Normal 135-145 [facility] Comment on above: Performed By: #### 1 8530847, 7138618, 0130476, 2552076 #### [facility] [address] [place] [address] Urea nitrogen [Mass/Vol] 29 mg/dL High 5-21 [facility] Comment on above: Performed By: #### 1 9311236, 7129414, 5773337, 4171949 #### [facility] [address] [place] [address] Urea nitrogen/Creatinine [Mass ratio] 3 No Units Low 10-20 [facility] Comment on above: Performed By: #### 1 4556530, 6558571, 1907635, 1804358 #### [facility] [address] [place] [address] CBC w/Indiceson 07-18-2022 Erythrocyte distribution width (RBC) [Ratio] 17.2 % High 10.9-14.2 [facility] Comment on above: Performed By: #### 1 3084654, 6986418, 1230703, 3565696 #### [facility] [address] [place] [address] Hematocrit (Bld) [Volume fraction] 25.0 % Low 37.7-49.0 [facility] Comment on above: Performed By: #### 1 8299144, 2547181, 3363822, 0084454 #### [facility] [address] [place] [address] Hemoglobin (Bld) [Mass/Vol] 8.5 g/dL Low 13.5-17.5 [facility] Comment on above: Performed By: #### 1 7060683, 2966824, 3339206, 5576930 #### [facility] [address] [place] [address] MCH (RBC) [Entitic mass] 30.3 pg Normal 27.0-34.0 [facility] Comment on above: Performed By: #### 1 3004059, 1185811, 6451862, 0911169 #### [facility] [address] [place] [address] MCHC (RBC) [Mass/Vol] 33.9 g/dL Normal 31.4-36.0 [facility] Comment on above: Performed By: #### 1 9090150, 0812890, 8774703, 4483233 #### [facility] [address] [place], [place] [address] MCV (RBC) [Entitic vol] 89.4 fL Normal 80.0-100.0 [facility] Comment on above: Performed By: #### 1 0409076, 0426206, 6902911, 5196032 #### [facility] [address] [place] [address] Platelet mean volume (Bld) [Entitic vol] 7.2 fL Normal 6.4-10.8 [facility] Comment on above: Performed By: #### 1 7777246, 7214050, 9350397, 7134382 #### [facility] [address] [place] [address] Platelets (Bld) [#/Vol] 187.0 E9/L Normal 150.0-500. 0 [facility] Comment on above: Performed By: #### 1 6539215, 0638177, 8876824, 4308384 #### [facility] [address] [place] [address] RBC (Bld) [#/Vol] 2.8 E12/L Low 4.3-5.9 [facility] Comment on above: Performed By: #### 1 5989732, 1469259, 0995214, 9046174 #### [facility] [address] [place] [address] WBC corrected for nucl RBC Auto (Bld) [#/Vol] 5.6 E9/L Normal 4.0-11.0 [facility] Comment on above: Performed By: #### 1 [id number], 2696973, 4453593, 1943319 #### [facility] [address] [place] [address] Capillary Glucose POCon 06 Glucose [Mass/Vol] 288 mg/dL High 55-99 [facility] Comment on above: Result Comment: Ambrocio vargas RN/ Performed By: #### 1 4321401, 2640051, 2139971, 5425645 #### [facility] [address] [place] [address] Glucose [Mass/Vol] 267 mg/dL High 55-99 [facility] Comment on above: Result Comment: Ambrocio ELIAS Performed By: #### 2 [id number] ####[facility] [address] [place] [address] Glucose [Mass/Vol] 122 mg/dL High - [facility] Comment on above: Result Comment: Ambrocio ELIAS Performed By: #### 2 [id number] ####[facility] [address] [place] [address] Glucose [Mass/Vol] 129 mg/dL High 55-99 [facility] Comment on above: Result Comment: Ambrocio ELIAS Performed By: #### 2 [id number] #### [facility] [address] [place] [address] Interdisciplinary Note - Paresh e Manageron 07-18-2022 Interdisciplinary Note - Independent Beauty Consultant Pt is awake and alert in bed, previously rounded with kyler PIT FURNACE MELTER. Pt is receiving hemodialysis at this time, Plan to stay in hospital today, await cultures and will likely DC [facility] tomorrow. Medicare rights reviewed, . PCP verified and insurance information reviewed and DME discussed. contact information provided and white board updated. Normal [facility] Comment on above: Result Comment: Elec tronically Signed By: Obie TORREZ, Alaina\.asael\Date and Time Signed: 07/18/22 11:15 EDT IntraOperative Documentson 0 07-18-2022 [employer] Documents [id number]#[id number]:127 [facility] Message from Medicareon Message from Medicare [id number]#1.00CD:127 [facility] Message from Medicare [id number]#1.00CD:127 [facility] Monitor Recordon 07-18-2022 Monitor Record [id number]#1.00CD:127 [facility] Monitor Record [id number]#1.00CD:127 [facility] Monitor Record [id number]#1.00CD:127 [facility] Monitor Record [id number]#1.00CD:127 [facility] Progress Note - Pharmacyon 0 07-18-2022 Progress Note - Pharmacy Vancomycin Pharmacy to Dose Consult Note Indication: Skin and Skin Structure Infection Goal Range: Pre-HD Level: 15-20 RECOMMENDATIONS/ PLAN: Pharmacy consulted for vancomycin dosing for SETH MURPHY, a 66 Years old, Male who is being treated with vancomycin for cellulitis. 1. Vancomycin therapy is still active, today is day 7 of treatment. Patient is receiving Vancomycin dosed based on Pre-HD levels. 2. The most recent vancomycin level was 19 mcg/mL drawn at 0603 on 07/18/22. This is a pre-HD level on the 7 day of therapy. 3. The vancomycin level is therapeutic. Plan to give Vancomycin 500 mg IV once after HD today 4. The next level is scheduled for am labs on 07/20/22. 5. A MRSA Nasal Swab is not appropriate at this time. We will follow patient renal function, vancomycin levels and doses with you during the course of therapy. Additional recommendations will appear in follow up notes. If you have any questions, please contact the pharmacy at [phone]. Age: 66 Years Allergies: Brilinta; Coban Bandage Weight:Last Documented Weight and Type of Scale Used Last Documented Weight Weight Measured: 97.9 kg (07/18/22 06:30:00) Type of Scale Used Weight Measured Type of Scale: Bed Scale (digital) (07/12/22 14:49:00) Height: Last Documented Height/Length Last Documented Height/Length Height/Length Measured: 180.34 cm (07/17/22 11:02:00) CrCl: 8 mL/min Labs: WBC: 5.6 E9/L (07/18/22 06:03:00) RBC: 2.8 E12/L Low (07/18/22 06:03:00) HGB: 8.5 gm/dL Low (07/18/22 06:03:00) Hct: 25 % Low (07/18/22 06:03:00) MCV: 89.4 fL (07/18/22 06:03:00) MCH: 30.3 pg (07/18/22 06:03:00) MCHC: 33.9 gm/dL (07/18/22 06:03:00) RDW: 17.2 % High (07/18/22 06:03:00) Platelet: 187 E9/L (07/18/22 06:03:00) MPV: 7.2 fL (07/18/22 06:03:00) Glucose Lvl: 131 mg/dL (07/18/22 06:03:00) BUN: 29 mg/dL High (07/18/22 06:03:00) Creatinine: 9.7 mg/dL Critical (07/18/22 06:03:00) eGFR: 5 mL/min/1.73 m2 Low (07/18/22 06:03:00) BUN/Creat Ratio: 3 Low (07/18/22 06:03:00) Sodium Lvl: 138 mmol/L (07/18/22 06:03:00) Potassium Lvl: 3.8 mmol/L (07/18/22 06:03:00) Chloride: 104 mmol/L (07/18/22 06:03:00) CO2: 23 mmol/L (07/18/22 06:03:00) AGAP: 15 mEq/L (07/18/22 06:03:00) Calcium Lvl: 8.1 mg/dL Low (07/18/22 06:03:00) Vanco Tr: 19 mcg/mL (07/18/22 06:03:00) Glucose Cap: 129 mg/dL High (07/18/22 07:36:00) POC Device SN: [id number] (07/18/22 07:36:00) POC User ID: [id number] (07/18/22 07:36:00) POC Username: ROGER VALERIO (07/18/22 07:36:00) Landry Arreaga [facility] Progress Note-Physicianon Progress Note-Physician Assessment/Plan 1. Sepsis (A41.9: Sepsis, unspecified organism) 2/2 AVF infection/cellulitis POA had hypotension, leukocytosis, source of infection.?Improving -HR: 111, M temp: 38.5, WBC: 23.8, LA: 5.9, + source -was given fluids with HD yesterday -IV Atb as below -See below 2. Cellulitis of arm (L03.119: Cellulitis of unspecified part of limb) LUE 2/2 open wounds - pt. failed outpt. keflex--improved. IV vanco/zosyn - 07/12 Consult ID: Continue Vanco on HD days. Discontinue Zosyn IV Wound cultures positive Final for MRSA could likely discontinue Zosyn with continued negative blood cultures. Tissue culture from vascular intervention positive for MRSA -Bl. cx - negative. X6 days -Pain mgt., supportive care -Elevate, outline area 3. AV fistula infection (T82.7XXA: Infection and inflammatory reaction due to other cardiac and vascular devices, implants and grafts, initial encounter) Consult vascular: (Dr. Alarcon - s/p I&D (debridement) on 07/[address] Alarcon. Continue wound wet to dry dressings per Dr. Alarcon. -LUE DUS: progressive thrombosis and surrounding soft tissue edema, hyperemia of LUE AV fistula -See above 4. Coronary artery disease (I25.10: Atherosclerotic heart disease of [place] coronary artery without angina pectoris) -Aspirin, atorvastatin, 5. Chronic systolic heart failure (I50.22: Chronic systolic (congestive) heart failure) Stable -Fluid mgt. per HD 6. Insulin dependent type 2 diabetes mellitus (E11.9: Type 2 diabetes mellitus without complications) Accuchecks AC/HS w/ SSI prn -Home regimen: Insulin 70/30 30u in AM and 14 u at HS -Increase insulin 70/30 14 units BID from only HS as BS have been elevated. -Hypoglycemic protocol 7. Peripheral neuropathy (G62.9: Polyneuropathy, unspecified) -Tylenol prn 8. ESRD on dialysis (N18.6: End stage renal disease) On HD M/W/F at [facility] -Consult nephro -appreciated -- typically takes midodrine 5mg on HD only for now will increase to daily dosing until infection improves -Pending HD today. 9. Hypothyroidism (E03.9: Hypothyroidism, unspecified) -Levothyroxine 10. Venous insufficiency of both lower extremities (I87.2: Venous insufficiency (chronic) (peripheral)) -Aspirin, atorvastatin 11. Venous stasis ulcer (I83.009: Varicose veins of unspecified lower extremity with ulcer of unspecified site) Chronic - POA -Consult wound care: Left aVF swab with Betadine and cover with gauze and Kerlix daily, right heel, Aquacel Ag every other day 12. On deep vein thrombosis (DVT) prophylaxis (Z79.899: Other chcf (current) drug therapy) -Heparin sq with early ambulation -Plan discussed w/ patient, nursing staff and CRM. This report was transcribed using voice recognition software. Every effort was made to ensure accuracy, however, inadvertently computerized carroting machine operator mistakes may be present. Subjective Patient seen this morning while undergoing HD. Patient is more alert today. Denies chest pain, shortness of breath, fevers, chills. Tissue and wound cultures reading MRSA. recommendations reviewed from ID. Patient pending SNF at discharge. Patient is agreeable to plan. Objective Vitals & Measurements T: 36.3 ?C(Oral) TMIN: 36.3 ?C(Oral) TMAX: 36.5 ?C(Oral) HR: 87(Monitored) RR: 18 BP: 101/80 SpO2: 99% WT: 97.9 kg Intake & Output This visit (24 hour periods starting at 07:00 EDT) 07/18/22 * 07/17/22 07/16/22 Total Summary Intake mL 3.6 -- 1,334.79 Output mL -- -- -- Fluid Balance 3.6 -- 1,334.79 Intake (13) Lactated Ringers Injection mL -- -- 1,000 Lactated Ringers Injection 1,000 mL mL -- -- 100 Sodium Chloride 0.9% intravenous solution 1,000 mL mL -- -- 108.2 Sodium Chloride 0.9% intravenous solution 250 mL mL -- -- 51.78 Sodium Chloride 0.9%, piperacillin-tazobactam mL -- -- 50 epoetin thomas mL -- -- 2 fentanyl mL -- -- 2 heparin mL 3.6 -- -- hydromorphone mL -- -- 0.8 lidocaine mL -- -- 3 ondansetron mL -- -- 2 phenylephrine mL -- -- 0.01 propofol mL -- -- 15 Total 3.6 -- 1,334.79 Output (0) Counts (1) Stool Count -- 1 1 * This column has not completed the indicated time period. Physical Exam General: Calm, able to communicate needs, Head: Normocephalic/atraumatic Eyes: Pupils equal, round. Conjunctivae and sclerae normal. HEENT: Mucous membrane moist. Tongue normal Neck: Trachea midline, neck supple, Chest: No chest wall deformity, no chest wall tenderness Lungs: CTA sanders Cardio: Normal rate, apical is regular, no edema. Pulses: Normal capillary refill Abdomen: Soft, non-distended, non-tender, normal BS Musculoskeletal: No deformity or scoliosis noted. Integumentary: Warm, dry, L chest permacath, LUE fistula w/dressing to site dry and intact. Extremity: No clubbing, Neurologic: Alert, oriented x 4, follows commands, periods of napoleon (more content not included)... Normal [facility] Comment on above: Result Comment: Elec tronically Signed By: Vijaya SANDOVAL\.br\Date and Time Signed: 07/18/22 13:34 EDT\.br\Electronically Co-Signed By: Pedro ARAUZ MD\.br\Date and Time Co-Signed: 07/18/22 16:54 EDT Progress Note-Physician Patient: SETH MURPHY Age: 66 years Sex: Male : 1955 Associated Diagnoses: None Author: Brian SHIN, Sarah Ugalde Interval History 66-year-old gentleman with end-stage kidney disease on hemodialysis Saturday at [place] (follows with Dr. Nunez, Last dialyzed on Saturday) presents to the hospital with left AV fistula pain and tenderness. He has history of hypertension, diabetes mellitus type 2. He saw Dr. Alarcon and was found to have AV fistula infection. He was found to have thrombosed left brachiocephalic fistula. HD catheter appears to be placed in late June 2022. He was found to be hypotensive today. His white count is 23. 07/16/22: Patient has no acute complaints today. Waiting for surgery. 07/17/22 No acute complaints today. Review of Systems Constitutional: Negative except as documented in history of present illness. Eye: No double vision, No visual disturbances. Ear/Nose/Mouth/Throat Respiratory: No shortness of breath, No cough, No sputum production, No hemoptysis. Cardiovascular: No chest pain, No palpitations. Gastrointestinal: No nausea, No vomiting, No diarrhea, No abdominal pain. Genitourinary: No dysuria, No hematuria. Hematology/Lymphatics: No bleeding tendency, No swollen lymph glands. Endocrine: No excessive thirst, No polyuria, No cold intolerance, No heat intolerance. Immunologic: No recurrent fevers, No recurrent infections. Musculoskeletal: No neck pain, No joint pain, No muscle pain. Integumentary: No rash, No pruritus, No skin lesion. Neurologic: Alert and oriented X4, No numbness, No tingling. Psychiatric: No anxiety, No depression, No frankie. Health Status Allergies: Allergic Reactions (Selected) Severity Not Documented Brilinta- Unknown. Coban Bandage- Rash., Allergies (2) Active Reaction Brilinta Unknown Coban Bandage Rash Current medications: (Selected) Inpatient Medications Ordered Dextrose 50% Soln-IV: 50 mL, Soln-IV, IV Push, Once PRN Blood glucose, Routine, Start date 07/12/22 16:48:00 EDT HumaLOG Sliding Scale: 0-10 Units, Injection-Insulin, SubCutaneous, QIDACHS, Routine, Start date 07/12/22 21:00:00 EDT Humulin 70/30 10 mL Injection-Insulin: 14 unit(s) = 0.14 mL, Injection-Insulin, SubCutaneous, Bedtime, Routine, Start date 07/13/22 21:00:00 EDT Humulin 70/30 10 mL Injection-Insulin: 14 unit(s) = 0.14 mL, Injection-Insulin, SubCutaneous, Daily, Routine, Start date 07/17/22 9:00:00 EDT Percocet 5 mg-325 mg oral tablet: 1 tab(s), Tab, Oral, q6hr PRN Pain, Routine, Start date 07/17/22 14:36:00 EDT Sodium Chloride 0.9% IV Nirmala 250 mL bag 250 mL: 250 mL, IV, 20 mL/hr, Other (see comment), Routine, Start date 07/16/22 5:52:00 EDT, 12.5 hour(s), Total volume (mL): 250, 96.8 kg, 2.2, m2 Synthroid 100 mcg Tab: 100 mcg = 1 tab(s), Tab, Oral, Daily, Routine, Start date 07/13/22 6:30:00 EDT, 07/12/22 16:22:00 EDT Therapeutic Multiple Vitamins with Minerals Tab: 1 tab(s), Tab, Oral, Daily, Routine, Start date 07/13/22 9:00:00 EDT Zofran 4 mg/2 mL Injection: 4 mg = 2 mL, Injection, IV Push, q6hr PRN Nausea, Routine, Start date 07/12/22 15:58:00 EDT, 07/12/22 15:58:00 EDT acetaminophen 325 mg Tab: 650 mg = 2 tab(s), Tab, Oral, q6hr PRN Pain, Routine, Start date 07/12/22 15:58:00 EDT, 07/12/22 15:58:00 EDT aspirin 81 mg Chew Tab: 81 mg = 1 tab(s), Tab-Chew, Chewed, Daily, Routine, Start date 07/13/22 9:00:00 EDT, 07/12/22 16:22:00 EDT atorvastatin 40 mg Tab: 40 mg = 1 tab(s), Tab, Oral, Daily, Routine, Start date 07/13/22 9:00:00 EDT, 07/12/22 16:22:00 EDT epoetin thomas-epbx 10,000 units/mL Inj: 20,000 unit(s) = 2 mL, Injection, IV Push, MonWedFri, Routine, Start date 07/16/22 15:00:00 EDT, give on HD heparin 5000 units/mL Inj: 5,000 unit(s) = 1 mL, Injection, SubCutaneous, BID for 30 day(s), Stop date 08/11/22 20:59:00 EDT, Routine, Start date 07/12/22 21:00:00 EDT, 07/12/22 16:46:00 EDT midodrine 5 mg Tab: 5 mg = 1 tab(s), Tab, Oral, Daily, Routine, Start date 07/14/22 9:00:00 EDT, 07/13/22 13:22:00 EDT polyethylene glycol 3350 17 gram packet: 17 gm = 1 EA, Powder-Recon, Oral, Daily PRN Constipation, Routine, Start date 07/12/22 16:23:00 EDT, 07/12/22 16:23:00 EDT vancomycin IV PHARMACY TO DOSE: PHARMACY TO DOSE, Injection, IV, As Directed, Routine, Start date 07/12/22 15:58:00 EDT Prescriptions Prescribed Keflex 500 mg Cap: 500 mg = 1 cap(s), Oral, q12hr, # 20 cap(s), Refills(s) 0, Pharmacy: [facility]/pharmacy #[id number], 178, cm, 07/09/22 17:32:00 EDT, Height/Length Dosing, 92, kg, 07/09/22 17:32:00 EDT, Weight Dosing Documented Medications Documented Aranesp 25 mcg/0.42 mL Injection: Refills(s) 0 Celebrate Multivitamin: See Instructions, Refill(s) 0 Humalog KwikPen: See Instructions, sliding scale tidhs, Refills(s) 0 Novolin 70/30: See Instructions, Refill(s) 0, 30 units in am, 14 units bedtime, Blood glucose Novolin R: Refills(s) 0 Synthroid 100 mcg Tab: 100 microgram = 1 tab(s), Oral, Daily, Refills(s) 0, Thyro (more content not included)... Normal [facility] Comment on above: Result Comment: Elec tronically Signed By: Sarah Torres NP\.br\Date and Time Signed: 07/17/22 18:08 EDT\.br\Electronically Co-Signed By: Vane Miller MD\.br\Date and Time Co-Signed: 07/18/22 13:58 EDT Progress Note-Physician Patient: SETH MURPHY Age: 66 years Sex: Male : 1955 Associated Diagnoses: None Author: Vane Miller MD Interval History 66-year-old gentleman with end-stage kidney disease on hemodialysis Saturday at [place] (follows with Dr. Nunez, Last dialyzed on Saturday) presents to the hospital with left AV fistula pain and tenderness. He has history of hypertension, diabetes mellitus type 2. He saw Dr. Alarcon and was found to have AV fistula infection. He was found to have thrombosed left brachiocephalic fistula. HD catheter appears to be placed in late June 2022. He was found to be hypotensive today. His white count is 23. 07/16/22: Patient has no acute complaints today. Waiting for surgery. 07/17/22 No acute complaints today. 07/18/22: Seen examined on hemodialysis today. Predialysis weight 96.7 kg. Patient is tolerating treatment. Review of Systems Constitutional: Negative except as documented in history of present illness. Eye: No double vision, No visual disturbances. Ear/Nose/Mouth/Throat Respiratory: No shortness of breath, No cough, No sputum production, No hemoptysis. Cardiovascular: No chest pain, No palpitations. Gastrointestinal: No nausea, No vomiting, No diarrhea, No abdominal pain. Genitourinary: No dysuria, No hematuria. Hematology/Lymphatics: No bleeding tendency, No swollen lymph glands. Endocrine: No excessive thirst, No polyuria, No cold intolerance, No heat intolerance. Immunologic: No recurrent fevers, No recurrent infections. Musculoskeletal: No neck pain, No joint pain, No muscle pain. Integumentary: No rash, No pruritus, No skin lesion. Neurologic: Alert and oriented X4, No numbness, No tingling. Psychiatric: No anxiety, No depression, No frankie. Health Status Allergies: Allergic Reactions (Selected) Severity Not Documented Brilinta- Unknown. Coban Bandage- Rash., Allergies (2) Active Reaction Brilinta Unknown Coban Bandage Rash Current medications: (Selected) Inpatient Medications Ordered Dextrose 50% Soln-IV: 50 mL, Soln-IV, IV Push, Once PRN Blood glucose, Routine, Start date 07/12/22 16:48:00 EDT HumaLOG Sliding Scale: 0-10 Units, Injection-Insulin, SubCutaneous, QIDACHS, Routine, Start date 07/12/22 21:00:00 EDT Humulin 70/30 10 mL Injection-Insulin: 14 unit(s) = 0.14 mL, Injection-Insulin, SubCutaneous, Bedtime, Routine, Start date 07/13/22 21:00:00 EDT Humulin 70/30 10 mL Injection-Insulin: 14 unit(s) = 0.14 mL, Injection-Insulin, SubCutaneous, Daily, Routine, Start date 07/17/22 9:00:00 EDT Percocet 5 mg-325 mg oral tablet: 1 tab(s), Tab, Oral, q6hr PRN Pain, Routine, Start date 07/17/22 14:36:00 EDT Sodium Chloride 0.9% IV Nirmala 1000 mL 1,000 mL: 1,000 mL, IV, titrate, Routine, Start date 07/18/22 10:25:00 EDT, Total volume (mL): 1,000, 96.8 kg, 2.2, m2 Sodium Chloride 0.9% IV Nirmala 250 mL bag 250 mL: 250 mL, IV, 20 mL/hr, Other (see comment), Routine, Start date 07/16/22 5:52:00 EDT, 12.5 hour(s), Total volume (mL): 250, 96.8 kg, 2.2, m2 Synthroid 100 mcg Tab: 100 mcg = 1 tab(s), Tab, Oral, Daily, Routine, Start date 07/13/22 6:30:00 EDT, 07/12/22 16:22:00 EDT Therapeutic Multiple Vitamins with Minerals Tab: 1 tab(s), Tab, Oral, Daily, Routine, Start date 07/13/22 9:00:00 EDT Zofran 4 mg/2 mL Injection: 4 mg = 2 mL, Injection, IV Push, q6hr PRN Nausea, Routine, Start date 07/12/22 15:58:00 EDT, 07/12/22 15:58:00 EDT acetaminophen 325 mg Tab: 650 mg = 2 tab(s), Tab, Oral, q6hr PRN Pain, Routine, Start date 07/12/22 15:58:00 EDT, 07/12/22 15:58:00 EDT aspirin 81 mg Chew Tab: 81 mg = 1 tab(s), Tab-Chew, Chewed, Daily, Routine, Start date 07/13/22 9:00:00 EDT, 07/12/22 16:22:00 EDT atorvastatin 40 mg Tab: 40 mg = 1 tab(s), Tab, Oral, Daily, Routine, Start date 07/13/22 9:00:00 EDT, 07/12/22 16:22:00 EDT epoetin thomas-epbx 10,000 units/mL Inj: 20,000 unit(s) = 2 mL, Injection, IV Push, MonWedFri, Routine, Start date 07/16/22 15:00:00 EDT, give on HD heparin 5000 units/mL Inj: 5,000 unit(s) = 1 mL, Injection, SubCutaneous, BID for 30 day(s), Stop date 08/11/22 20:59:00 EDT, Routine, Start date 07/12/22 21:00:00 EDT, 07/12/22 16:46:00 EDT midodrine 5 mg Tab: 5 mg = 1 tab(s), Tab, Oral, Daily, Routine, Start date 07/14/22 9:00:00 EDT, 07/13/22 13:22:00 EDT polyethylene glycol 3350 17 gram packet: 17 gm = 1 EA, Powder-Recon, Oral, Daily PRN Constipation, Routine, Start date 07/12/22 16:23:00 EDT, 07/12/22 16:23:00 EDT vancomycin IV PHARMACY TO DOSE: PHARMACY TO DOSE, Injection, IV, As Directed, Routine, Start date 07/12/22 15:58:00 EDT Prescriptions Prescribed Keflex 500 mg Cap: 500 mg = 1 cap(s), Oral, q12hr, # 20 cap(s), Refills(s) 0, Pharmacy: [facility]/pharmacy #[id number], 178, cm, 07/09/22 17:32:00 EDT, Height/Length Dosing, 92, kg, 07/09/22 17:32:00 EDT, Weight Dosing Documented Medications Documented Aranesp 25 mcg/0.42 mL Injection: Refills(s) 0 Celebrate Multivitamin: See Instructions, Refill(s) 0 Humalog Kwi (more content not included)... Normal [facility] Comment on above: Result Comment: Elec tronically Signed By: Paul FISH, Vane\.br\Date and Time Signed: 07/18/22 13:15 EDT Progress Note-Physician Assessment/Plan 1. Sepsis (A41.9: Sepsis, unspecified organism) 2/2 AVF infection/cellulitis POA had hypotension, leukocytosis, source of infection.?Improving -HR: 111, M temp: 38.5, WBC: 23.8, LA: 5.9, + source -was given fluids with HD yesterday -IV Atb as below -See below 2. Cellulitis of arm (L03.119: Cellulitis of unspecified part of limb) LUE 2/2 open wounds - pt. failed outpt. keflex--improved. IV vanco/zosyn - 07/12 Consult ID: Vanco Zosyn, Wound cultures positive Final for MRSA could likely discontinue Zosyn with continued negative blood cultures. Tissue culture from vascular intervention showing positive for staph -Bl. cx - negative. -Pain mgt., supportive care -Elevate, outline area 3. AV fistula infection (T82.7XXA: Infection and inflammatory reaction due to other cardiac and vascular devices, implants and grafts, initial encounter) Consult vascular: (Dr. Alarcon - plan for OR today 07/16 - -LUE DUS: progressive thrombosis and surrounding soft tissue edema, hyperemia of LUE AV fistula -See above 4. Coronary artery disease (I25.10: Atherosclerotic heart disease of [place] coronary artery without angina pectoris) -Aspirin, atorvastatin, 5. Chronic systolic heart failure (I50.22: Chronic systolic (congestive) heart failure) Stable -Fluid mgt. per HD 6. Insulin dependent type 2 diabetes mellitus (E11.9: Type 2 diabetes mellitus without complications) Accuchecks AC/HS w/ SSI prn -Home regimen: Insulin 70/30 30u in AM and 14 u at HS -Increase insulin 70/30 14 units BID from only HS as BS have been elevated. -Hypoglycemic protocol 7. Peripheral neuropathy (G62.9: Polyneuropathy, unspecified) -Tylenol prn 8. ESRD on dialysis (N18.6: End stage renal disease) On HD M/W/F at [facility] -Consult nephro -appreciated -- typically takes midodrine 5mg on HD only for now will increase to daily dosing until infection improves -Pending HD today. 9. Hypothyroidism (E03.9: Hypothyroidism, unspecified) -Levothyroxine 10. Venous insufficiency of both lower extremities (I87.2: Venous insufficiency (chronic) (peripheral)) -Aspirin, atorvastatin 11. Venous stasis ulcer (I83.009: Varicose veins of unspecified lower extremity with ulcer of unspecified site) Chronic - POA -Consult wound care: Left aVF swab with Betadine and cover with gauze and Kerlix daily, right heel, Aquacel Ag every other day 12. On deep vein thrombosis (DVT) prophylaxis (Z79.899: Other intermodal dispatcher (current) drug therapy) -Heparin sq with early ambulation -Plan discussed w/ patient, nursing staff and CRM. This report was transcribed using voice recognition software. Every effort was made to ensure accuracy, however, inadvertently computerized carroting machine operator mistakes may be present. Subjective Pt seen at bedside this morning. More alert than he has been the last few days. Is able to discuss his POC. States he is feeling better. Denies CP, SOB, N/V. Still weak but states he was able to get up to the bathroom this morning. Objective Vitals & Measurements T: 36.6 ?C(Oral) TMIN: 36.2 ?C(Oral) TMAX: 37.4 ?C(Oral) HR: 80(Monitored) RR: 16 BP: 122/63 SpO2: 94% Intake & Output This visit (24 hour periods starting at 07:00 EDT) 07/17/22 * 07/16/22 07/15/22 Total Summary Intake mL -- 312.78 698.98 Output mL -- -- -- Fluid Balance -- 312.78 698.98 Intake (7) Lactated Ringers Injection 1,000 mL mL -- 100 -- Oral Intake mL -- -- 640 Sodium Chloride 0.9% intravenous solution 1,000 mL mL -- 108.2 -- Sodium Chloride 0.9% intravenous solution 250 mL mL -- 51.78 8.98 Sodium Chloride 0.9%, piperacillin-tazobactam mL -- 50 50 epoetin thomas mL -- 2 -- hydromorphone mL -- 0.8 -- Total -- 312.78 698.98 Output (0) Counts (1) Stool Count 1 1 2 * This column has not completed the indicated time period. Physical Exam General: Calm, able to communicate needs, Head: Normocephalic/atraumatic Eyes: Pupils equal, round. Conjunctivae and sclerae normal. HEENT: Mucous membrane moist. Tongue normal Neck: Trachea midline, neck supple, Chest: No chest wall deformity, no chest wall tenderness Lungs: CTA sanders Cardio: Normal rate, apical is regular, no edema. Pulses: Normal capillary refill Abdomen: Soft, non-distended, non-tender, normal BS Musculoskeletal: No deformity or scoliosis noted. Integumentary: Warm, dry, L chest permacath, LUE fistula w/dressing to site dry and intact. Extremity: No clubbing, Neurologic: Alert, oriented x 4, follows commands, Mental status: Pleasant & cooperative, approp. affect Lab Results Glucose Lvl: 195 mg/dL (07/17/22 08:41:00) BUN: 23 mg/dL High (07/17/22 08:41:00) Creatinine: 8 mg/dL Critical (07/17/22 08:41:00) eGFR: 7 mL/min/1.73 m2 Low (07/17/22 08:41:00) BUN/Creat Ratio: 3 Low (07/17/22 08:41:00) Sodium Lvl: 137 mmol/L (07/17/22 08:41:00) Potassium Lvl: 4. (more content not included)... Normal [facility] Comment on above: Result Comment: Elec tronically Signed By: Vijaya SANDOVAL\.br\Date and Time Signed: 07/17/22 11:34 EDT\.br\Electronically Co-Signed By: Pedro ARAUZ MD\.br\Date and Time Co-Signed: 07/18/22 08:23 EDT Vanco Troughon 07-18-2022 VANCOMYCIN 19 microgram/mL Normal 10-20 [facility] Comment on above: Order Comment: Lakisha woodard draw one hour prior to next dose at on . Thank you. Performed By: #### 1 [id number] #### [facility] [address] [place] [address] eGFRon 07-18-2022 GFR/1.73 sq M.predicted among non-blacks MDRD (S/P/Bld) [Vol rate/Area] 5 mL/min/1.73 m2 Low >=59 [facility] Comment on above: Order Comment: Order added by Discern Expert. Result Comment: Painter Maintenance jm kidney disease could be indicated at eGFR's of less than 60 mL/min/1.73m2. Kidney failure is indicated at less than 15 mL/min/1.73m2. Performed By: #### 1 [id number] #### [facility] [address] [place] [address] BMPon 07-17-2022 Creatinine [Mass/Vol] 8.0 mg/dL Abnormal 0.5-1.3 [facility] Comment on above: Result Comment: Crit ical Result verified by repeat analysis\Critical Result S_CREA:8.00 Called to SILVIO ARZOLA AT 3S by MARC ROSALES And Read Back For Confirmation at: 07/17/2022 09:09:10\Result S_CREA:8.00 Called to SILVIO ARZOLA AT 3S by MARC ROSALES And Read Back For Confirmation at: 07/17/2022 09:09:10 Performed By: #### 2 [id number] ####[facility] [address] [place] [address] Urea nitrogen [Mass/Vol] 23 mg/dL High 5-21 [facility] Comment on above: Performed By: #### 2 [id number] ####[facility] [address] [address] Urea nitrogen/Creatinine [Mass ratio] 3 No Units Low 10-20 [facility] Comment on above: Performed By: #### 2 [id number], [id number] ####[facility] [address] [place] [address] Anion gap [Moles/Vol] 14 mmol/L Normal 6-16 [facility] Comment on above: Performed By: #### 2 [id number] ####[facility] [address] [place] [address] Calcium [Mass/Vol] 7.8 mg/dL Low 8.9-11.1 [facility] Comment on above: Performed By: #### 2 [id number], [id number] ####[facility] [address] [facility] [place] [address] Chloride [Moles/Vol] 100 mmol/L Low 101-111 [facility] Comment on above: Performed By: #### 2 [id number], [id number] ####[facility] [address] [facility] [place] [address] CO2 [Moles/Vol] 27 mmol/L Normal 21-31 [facility] Comment on above: Performed By: #### 2 [id number], [id number] ####[facility] [address] [facility] [place] [address] Glucose [Mass/Vol] 195 mg/dL Normal 55-199 [facility] Comment on above: Result Comment: If t his glucose result represents a fasting glucose, interpretation should refer to the following reference range: 55-99 mg/dL Performed By: #### 2 [id number], [id number] ####[facility] [address] [facility] [place] [address] Potassium [Moles/Vol] 4.1 mmol/L Normal 3.5-5.3 [facility] Comment on above: Performed By: #### 2 381059, [id number] ####[facility] [address] [place] [address] Sodium [Moles/Vol] 137 mmol/L Normal 135-145 [facility] Comment on above: Performed By: #### 2 154596, [id number] ####[facility] [address] [place] [address] Capillary Glucose POCon Glucose [Mass/Vol] 243 mg/dL High 55-99 [facility] Comment on above: Result Comment: Ambrocio vargas RN/ Performed By: #### 1 [id number], 1244486, 5408572, [id number] #### [facility] [address] [place] [address] Glucose [Mass/Vol] 327 mg/dL High 55-99 [facility] Comment on above: Result Comment: Ambrocio vargas RN/ Performed By: #### 2 [id number] ####[facility] [address] [place] [address] Glucose [Mass/Vol] 290 mg/dL High -[address] [place] [address] Comment on above: Result Comment: Ambrocio vargas RN/ Performed By: #### 2 [id number] ####[facility] [address] [place] [address] Glucose [Mass/Vol] 188 mg/dL High 55-[address] [place] [address] Comment on above: Result Comment: Ambrocio vargas RN/ Performed By: #### 2 [id number] #### [facility] [address] [place] [address] Consent for Anesthesiaon Consent for Anesthesia [id number]#1.00CD:127 Normal [facility] H&P Updateon 07-17-2022 H&P Update [id number]#1.00CD:127 Normal [facility] IntraOperative Documentson 0 07-17-2022 IntraOperative Documents [id number]#[id number]:127 Normal [facility] Main OR Intraoperative Recor don 07-17-2022 Main OR Intraoperative Record IntraOp Document Type FT Summary Primary Physician: Dorian FISH, Greg Lopez Finalized Date/Time: 07/17/22 11:22:21 Pt. Name: SETH MURPHY/Sex: 1955 Male Med Rec #: [id number] Physician: Fuentes Rodriguez MD Financial #: [id number] Pt. Type: I Room/Bed: [place] [address] Admit/Disch: 07/12/22 14:01:25 - Institution: Case Times FT Entry 1 Patient Times In Room 07/16/22 12:24:00 Out Room 07/16/22 13:30:00 Procedure Times Start 07/16/22 12:59:00 Stop 07/16/22 13:20:00 Anesthesia Times Start 07/16/22 12:24:00 Stop 07/16/22 13:30:00 Last Modified By: Delilah Lee RN 07/16/22 13:30:01 General Comments: 07/17/22 Chart opened to review and send charges LRoth CSFA Case Attendance FT Entry 1 Entry 2 Entry 3 Case Attendee Trevor SOL, Dorian FISH, Greg Acosta RN, CNOR, Annie Aragon Role Performed INSTALLERS MECHANICAL Surgeon - Primary CABLE REPAIRER Time In 07/16/22 12:24:00 07/16/22 12:58:00 07/16/22 12:24:00 Time Out 07/16/22 13:30:00 07/16/22 13:11:00 07/16/22 13:30:00 Procedure AV FISTULA AV FISTULA AV FISTULA EXCISION(Left) EXCISION(Left) EXCISION(Left) Comments dr feliz supervising Last Modified By: Jesus TORREZ, Delilah Lee RN, Delilah Carvalho RN 07/16/22 13:30:02 07/16/22 13:30:02 07/16/22 13:30:02 Entry 4 Entry 5 Entry 6 Case Attendee Jseus TORREZ, Cari Mcintosh Ii, CST, Julie A Role Performed Drying Room Supervisor - Primary Drying Room Supervisor - Primary Scrub - Primary Time In 07/16/22 12:24:00 07/16/22 12:24:00 07/16/22 12:24:00 Time Out 07/16/22 13:30:00 07/16/22 13:30:00 07/16/22 13:30:00 Procedure AV FISTULA AV FISTULA AV FISTULA EXCISION(Left) EXCISION(Left) EXCISION(Left) Comments preceptor orientation preceptor Last Modified By: Delilah Lee RN, RN, Delilah Carvalho RN 07/16/22 13:30:02 07/16/22 13:30:02 07/16/22 13:30:02 Entry 7 Case Attendee Rosemary Clayton Role Performed Scrub - Primary Time In 07/16/22 12:24:00 Time Out 07/16/22 13:30:00 Procedure AV FISTULA EXCISION(Left) Comments orientation Last Modified By: Delilah Lee RN 07/16/22 13:30:02 Perioperative Protocols FT Pre-Care Text: Implements protective measures prior to operative or invasive procedure, confirms identity before the operative or invasive procedure, verifies operative procedure, surgical site, and laterality Entry 1 Procedure(s) AV FISTULA Patient Identity Birthday, ID Band EXCISION(Left) Verified (select at Check, Patient least 2): Participation Consents / H and P Anesthesia Consent, Operative Site Present Verified HandP, Surgery/Procedure Marking Verified Consent Surgical Site Yes Laterality Verified Yes Verified Procedure Verified Yes Correct Patient Yes Position Verified Availability Equipment, Medication Prep Dry n/a Verified (If Applicable) PreOp Antibiotic See Comments Time Out Trevor SOL, Given Participants Dorian Sarabia MD, Karla Holder RN, CNOR, Jesus Carrasco RN, Pedro Mims Alfons Ii F, Slusher CST, Forrest Garcia Laura C Time Out Complete 07/16/22 12:59:00 Outcomes Met? Yes Last Modified By: Delilah Lee RN 07/16/22 13:01:02 Post-Care Text: The patient is free from signs and symptoms of injury caused by extraneous objects General Comments: PATIENT ON SCHEDULE ANTIBIOTICS ON INPATIENT UNIT. LORE MARTINEZ Allergy Information FT Pre-Care Text: Verifies allergies Entry 1 Allergies Reviewed? Yes Allergies Reviewed Self/Patient With Outcomes Met? Yes Last Modified By: Delilah Lee RN 07/16/22 11:16:31 Post-Care Text: The patient received appropriate medication(s) safely administered during the perioperative period Surgical Procedures FT Entry 1 Procedure Description Procedure AV FISTULA EXCISION Modifiers Left Surgeon Description LEFT ARM FISTUAL DEBRIDEMENT Primary Procedure Yes Primary Surgeon Greg Alarcon MD Start 07/16/22 12:59:00 Stop 07/16/22 13:20:00 Anesthesia Type General Surgical Service Vascular Wound Class 1 - Clean Last Modified By: Delilah Lee RN 07/16/22 13:30:05 General Case Data FT Pre-Care Text: Classifies surgical wound, implements aseptic technique, initiates traffic control Entry 1 Case Information OR OR 6 FT Case Level Level 2 Wound Class 1 - Clean Specialty Vascular ASA Class 4 Preop Diagnosis Z99.2 N18.6 THROMBUS Postop Same As Preop Yes IN FISTULA Postop Diagnosis Z99.2 N18.6 THROMBUS Outcomes Met? Yes IN FISTULA Last Modified By: Justyna Alanis CST 07/17/22 11:22:14 Post-Care Text: The patient is free from signs and symptoms of infection Skin Assessment (Pre Procedure) FT Pre-Care Text: Implements protective measures to prevent skin/ tissue injury due to thermal or mechanical sources Evaluates for signs and symptoms of physical injury to skin and tissue Entry 1 Skin Integrity Intact, [place], Warm, and Skin Abnormality No Dry Outcomes Met? Yes Last Modified By: Delilah Lee RN (more content not included)... Normal [facility] Monitor Recordon 07-17-2022 Monitor Record [id number]#1.00CD:127 Normal [facility] Monitor Record [id number]#1.00CD:127 Normal [facility] Operative Reporton Operative Report SURGERY DATE: 2022 OPERATION: Gentle debridement of infected left thrombosed arteriovenous fistula including skin, subcutaneous tissue and fascia down to and including fascia with deep tissue culture, measurements are 5 cm x 2 cm x 1 cm of one wound, the other wound is 4 cm x 2 cm x 1 cm. ANESTHESIA: General anesthesia INDICATIONS: A 66-year-old gentleman who has a thrombosed fistula, however, he had infection at the access site with pus draining. He is here for debridement. PROCEDURE: The patient was taken back to the Operating Room, placed in supine position. Appropriate cardiopulmonary monitors were set. The left arm was prepped and draped in the usual sterile surgical fashion. After time-out and safety pause, extensive debridement was done. Elliptical incision removing all the infected tissue all the way down to fascia was removed, all the infected and tissue was removed. The wound was thoroughly irrigated with hydrogen peroxide and Betadine. The wound was then approximated using 3-0 Prolene sutures. Wet-to-dry dressing was placed around the sutures. RECOMMENDATION: 1. Follow the culture and adjust antibiotics accordingly. 2. Wet-to-dry dressing around the sutures twice a day. Greg Alarcon M.D. Dictated: 07/16/2022 [id number] Transcribed: 07/16/2022 [facility] Comment on above: Result Comment: Elec tronically Signed By: Dorian FISH, Greg Lopez\.br\Date and Time Signed: 07/17/22 13:42 EDT Progress Note-Physicianon Progress Note-Physician Patient: SETH MURPHY Age: 66 years Sex: Male : 1955 Associated Diagnoses: None Author: Gino Feliz Jr, DO Postoperative Information Postoperative disposition: Postoperative disposition: To PACU. Optimetrix number: Optimetrix number [id number]. Anesthetic utilized: General. Health Status Allergies: Allergic Reactions (Selected) Severity Not Documented Brilinta- Unknown. Coban Bandage- Rash. Physical Examination Vital Signs 07/16/2022 14:35 EDT Heart Rate Monitored 70 bpm Respiratory Rate 16 br/min Systolic Blood Pressure 120 mmHg Diastolic Blood Pressure 72 mmHg Mean Arterial Pressure, Cuff 88 mmHg Hourly Rounding Yes Hourly Rounding Yes Promise to Return Yes SpO2 93 % 07/16/2022 14:20 EDT Temperature Axillary 36.9 DegC HI Heart Rate Monitored 69 bpm Respiratory Rate Monitored 16 br/min Systolic Blood Pressure 114 mmHg Diastolic Blood Pressure 59 mmHg LOW Blood Pressure Location Right arm Mean Arterial Pressure, Cuff 77 mmHg SpO2 94 % Pain Assessment: Controlled. General: Awake, Alert, Appropriate. Respiratory: Adequate air exchange. Cardiovascular: Stable, Normal peripheral perfusion. Neurological: Normal sensory function, Normal motor function. Assessment Anesthetic outcome No anesthetic complications noted. Adequate pain relief. able to void without difficulty, able to ambulate with assist, tolerating PO intake, no N/V. Review / Management Condition: Stable. Plan Transfer/Discharge: Transfer/Discharge Discharge when meets criteria ( From PACU to floor ). Normal [facility] Comment on above: Result Comment: Elec tronically Signed By: Gino Feliz Jr, DO\.br\Date and Time Signed: 07/17/22 17:48 EDT Progress Note-Physician Patient: SETH MURPHY Age: 66 years Sex: Male : 1955 Associated Diagnoses: None Author: Alfredo Acosta M.D s/p Elliptical incision removing all the infected tissue all the way down to fascia was removed, all the infected and tissue was removed. on 07/16 Complaining of LUE pain. Picture of wound shared with me from today. Much improved. Review of Systems Constitutional: Negative. ROS reviewed as documented in chart Health Status Allergies: Allergic Reactions (Selected) Severity Not Documented Brilinta- Unknown. Coban Bandage- Rash. Current medications: Medications (17) Active Scheduled: (13) aspirin 81 mg Chew Tab [F] 81 mg 1 tab(s), Chewed, Daily atorvastatin 40 mg Tab [F] 40 mg 1 tab(s), Oral, Daily epoetin thomas epbx 10,000 units/mL preservative-free SOLN [F] 20,000 unit(s) 2 mL, IV Push, MonWedFri heparin 5,000 units/mL Inj [F] 5,000 unit(s) 1 mL, SubCutaneous, BID insulin (Humulin 70/30)isophane-insulin regular human recombinant 70 units-30 units/mL SubQ Inj [F 14 unit(s) 0.14 mL, SubCutaneous, Bedtime insulin (Humulin 70/30)isophane-insulin regular human recombinant 70 units-30 units/mL SubQ Inj [F 14 unit(s) 0.14 mL, SubCutaneous, Daily insulin lispro (Humalog) 100 units/mL SubQ Inj [F] 0-10 Units, SubCutaneous, QIDACHS levothyroxine 100 mcg (0.1 mg) Tab [F] 100 mcg 1 tab(s), Oral, Daily midodrine 5 mg Tab [F] 5 mg 1 tab(s), Oral, Daily multiple vitamin with minerals [F] 1 tab(s), Oral, Daily piperacillin-tazobactam 4 g-0.5 g + Sodium Chloride 0.9% Minibag 50 mL 4.5 gm 1 EA, IV Piggyback, q12hr Sodium Chloride 0.9% 250 mL 250 mL, IV vancomycin PHARMACY TO DOSE [F] PHARMACY TO DOSE, IV, As Directed Continuous: (0) PRN: (4) acetaminophen 325 mg Tab UD [F] 650 mg 2 tab(s), Oral, q6hr dextrose 50% IV Nirmala 50 mL Abboject [F] 50 mL, IV Push, Once ondansetron 2 mg/mL Inj [F] 4 mg 2 mL, IV Push, q6hr polyethylene glycol 3350 17 gram [F] 17 gm 1 EA, Oral, Daily Problem list: All Problems Acute non-ST segment elevation myocardial infarction / SNOMED CT 9337456342 / Confirmed Acute systolic heart failure / SNOMED CT 0651000155 / Confirmed At risk for falls / SNOMED CT 399055245 / Possible Problem added when Risk for Falls Careplan was initiated. Coronary arteriosclerosis / SNOMED CT 46579976 / Confirmed Coronary artery disease / SNOMED CT 88512148 / Confirmed MRSA (methicillin resistant staph aureus) culture positive / SNOMED CT 0354387294 / Confirmed MRSA in lt arm wound 07/12/2022 Diabetes mellitus / SNOMED CT 060986657 / Confirmed Diabetes / SNOMED CT 772378273 / Confirmed Dyspnea / SNOMED CT 476305480 / Confirmed Dysuria / SNOMED CT 43924802 / Confirmed Edema of lower extremity / SNOMED CT 054212567 / Confirmed Electrocardiogram abnormal / SNOMED CT 5988860823 / Confirmed ESRD (end stage renal disease) on dialysis / SNOMED CT 832123750 / Confirmed Essential hypertension / SNOMED CT 02872904 / Confirmed Fatigue / SNOMED CT 600526147 / Confirmed Hyperlipidemia / SNOMED CT 54798233 / Confirmed Hypertension / SNOMED CT 2726102776 / Confirmed Hypothyroid / SNOMED CT 41082861 / Confirmed Impaired skin integrity / SNOMED CT 50631198 / Confirmed Problem added on documentation of skin impairments. Left ventricular hypertrophy / SNOMED CT 89303174 / Confirmed Neuropathy due to diabetes mellitus / SNOMED CT 7103006797 / Confirmed Pseudophakia / SNOMED CT 552339579 / Confirmed Apnea, sleep / SNOMED CT 979670163 / Confirmed Thrombophlebitis / SNOMED CT 037954680 / Confirmed Venous insufficiency of leg / SNOMED CT 608987999 / Confirmed Venous stasis ulcer of leg / SNOMED CT 4652714368 / Confirmed Objective General: Alert and oriented. HENT: Normocephalic. Neck: Supple. Respiratory: Lungs are clear to auscultation. Musculoskeletal LUE wrapped with GOMEZ. Neurologic: Alert. Psychiatric: Cooperative. Review / Management Results review: All Results 07/17/2022 8:41 EDT BUN 23 mg/dL HI Creatinine 8.0 mg/dL CRIT 07/16/2022 13:09 EDT Tissue Culture POS (In Progress) 07/15/2022 6:07 EDT WBC 5.5 E9/L 07/14/2022 5:51 EDT WBC 11.0 E9/L 07/13/2022 12:06 EDT WBC 23.8 E9/L HI 07/12/2022 16:45 EDT Wound Culture POS 07/12/2022 16:34 EDT WBC 8.1 E9/L , Culture with MRSA. Impression and Plan Diagnosis: MRSA infection LUE thrombosed fistula s/p I&D. Orders dc Zosyn. IV Vancomcycin for now This would be good to be continued for a few weeks and this can be given at HD. Normal [facility] Comment on above: Result Comment: Elec tronically Signed By: Alfredo Acosta M.D.asael\Date and Time Signed: 07/17/22 14:03 EDT eGFRon 07-17-2022 GFR/1.73 sq M.predicted among non-blacks MDRD (S/P/Bld) [Vol rate/Area] 7 mL/min/1.73 m2 Low >=59 [facility] Comment on above: Order Comment: Order added by Discern Expert. Result Comment: Painter Maintenance jm kidney disease could be indicated at eGFR's of less than 60 mL/min/1.73m2. Kidney failure is indicated at less than 15 mL/min/1.73m2. Performed By: #### 2 383344, [id number] ####[facility] [address] [place] [address] BMPon 07-16-2022 Creatinine [Mass/Vol] 11.6 mg/dL Abnormal 0.5-1.3 [facility] Comment on above: Result Comment: Crit ical Result verified by previous result\Critical Result S_CREA:11.60 Called to SILVIO ARZOLA AT 3S by CATHY LERNER And Read Back For Confirmation at: 07/16/2022 11:03:55\Result S_CREA:11.60 Called to SILVIO ARZOLA AT 3S by CATHY LERNER And Read Back For Confirmation at: 07/16/2022 11:03:55 Performed By: #### 1 7021717, 2262619, 6063454, [id number] #### [facility] [address] [place] [address] Anion gap [Moles/Vol] 17 mmol/L High 6-16 [facility] Comment on above: Performed By: #### 1 7236271, 3779558, 4951724, 6476616 #### [facility] [address] [place] [address] Calcium [Mass/Vol] 8.4 mg/dL Low 8.9-11.1 [facility] Comment on above: Performed By: #### 1 0231790, 4005642, 3955641, 5915847 #### [facility] [address] [place] [address] Chloride [Moles/Vol] 100 mmol/L Low 101-111 [facility] Comment on above: Performed By: #### 1 7845155, 8001723, 5958221, 3762370 #### [facility] [address] [place] [address] CO2 [Moles/Vol] 24 mmol/L Normal 21-31 [facility] Comment on above: Performed By: #### 1 5602816, 3881058, 8500000, 4231712 #### [facility] [address] [place] [address] Glucose [Mass/Vol] 293 mg/dL High 55-199 [facility] Comment on above: Result Comment: If t his glucose result represents a fasting glucose, interpretation should refer to the following reference range: 55-99 mg/dL Performed By: #### 1 3342849, 6098379, 2894387, 1477315 #### [facility] [address] [place] [address] Potassium [Moles/Vol] 4.0 mmol/L Normal 3.5-5.3 [facility] Comment on above: Performed By: #### 1 4434442, 7818081, 8125409, 4192108 #### [facility] [address] [place] [address] Sodium [Moles/Vol] 137 mmol/L Normal 135-145 [facility] Comment on above: Performed By: #### 1 1772453, 5381349, 7789964, 1217757 #### [facility] [address] [place] [address] Urea nitrogen [Mass/Vol] 47 mg/dL High 5-21 [facility] Comment on above: Performed By: #### 1 1160301, 4383552, 9614580, 1634964 #### [facility] [address] [place] [address] Urea nitrogen/Creatinine [Mass ratio] 4 No Units Low 10-20 [facility] Comment on above: Performed By: #### 1 4933761, 4244641, 3046462, 9246001 #### [facility] [address] [place] [address] Capillary Glucose POCon -0 Glucose [Mass/Vol] 207 mg/dL High 55-99 [facility] Comment on above: Result Comment: Ambrocio vargas RN/ Performed By: #### 1 9346618, 2026690, 5633473, 0509517 #### [facility] [address] [place] [address] Glucose [Mass/Vol] 167 mg/dL High 55-99 [facility] Comment on above: Result Comment: Ambrocio vargas RN/ Performed By: #### 1 6048542, 2977714, 1365721, 8334159 #### [facility] [address] [place] [address] Glucose [Mass/Vol] 266 mg/dL High 55-99 [facility] Comment on above: Result Comment: Ambrocio vargas RN/ Performed By: #### 2 203303, 49817377, 3007719 #### [facility] [address] [place] [address] Glucose [Mass/Vol] 309 mg/dL High 55-99 [facility] Comment on above: Result Comment: Danielle joe Meter Performed By: #### 2 836683, 31749044, 1322297 #### [facility] [address] [place] [address] Consent for Procedure/Surger yon 07-16-2022 Consent for Procedure/Surgery [id number]#[id number]:127 Normal [facility] Electrocardiogram - 12 leado n 07-16-2022 Electrocardiogram - 12 lead [id number]#1.00CD:127 Normal [facility] Hct & Hgbon 07-16-2022 Hematocrit (Bld) [Volume fraction] 23.9 % Low 37.7-49.0 [facility] Comment on above: Performed By: #### 1 0389824, 7264568, 1962435, 0206472 #### [facility] [address] [place] [address] Hemoglobin (Bld) [Mass/Vol] 8.2 g/dL Low 13.5-17.5 [facility] Comment on above: Performed By: #### 1 2223455, 0042561, 0942076, 4238022 #### [facility] [address] [place] [address] Interdisciplinary Note - Paresh e Manageron 07-16-2022 Interdisciplinary Note - Independent Beauty Consultant CRM to room and patient is down in OR with Vascular Patient is here for an infection as an inpatient. Patient was diagnosed with LUE AVF infection and thrombosis Patient was accepted to [facility] and plan will be to DC there once medically ready Normal [facility] Comment on above: Result Comment: Elec tronically Signed By: Tia White\.asael\Date and Time Signed: 07/16/22 12:44 EDT Main OR PACU I Recordon Main OR PACU I Record PACU Phase I Docum ent Type FT Summary Primary Physician: Dorian FISH, Greg Lopez Finalized Date/Time: 07/16/22 14:40:11 Pt. Name: BRIESETH/Sex: 1955 Male Med Rec #: [id number] Physician: Michael FISH, Fuentes Lemons Financial #: [id number] Pt. Type: I Room/Bed: [place] [address] Admit/Disch: 07/12/22 14:01:25 - Institution: Case Times PACU I FT Pre-Care Text: Identifies barriers to communication and implements measures to provide psychological support Develops individualized plan of care, and ensures continuity of care Maintains patient's dignity and privacy, and maintains patient confidentiality Identifies and reports philosophical, cultural, and spiritual beliefs and values Identifies individual values and wishes concerning care Implements aseptic technique, and administers prescribed antibiotic therapy and immunizing agents as ordered Evaluates postoperative tissue perfusion Implements thermoregulation measures, and monitors body temperature Evaluates postoperative respiratory status Evaluates postoperative cardiac status Evaluates postoperative neurological status Assesses pain control, collaborated in initiating patient-controlled analgesia and implements alternative methods of pain control Verifies allergies, administers prescribed medications and solutions, evaluates response to medications Entry 1 In PACU I 07/16/22 13:32:00 Discharge from PACU 07/16/22 14:25:00 I Outcomes Met? Yes Last Modified By: Pina Goetz RN 07/16/22 14:39:50 Post-Care Text: The patient demonstrates knowledge of the expected response to the operative or invasive procedure The patient's care is consistent with the individualized perioperative plan of care The patient's right to privacy is maintained The patient's value system, lifestyle, ethnicity, and culture are considered, respected, and incorporated into the perioperative plan of care The patient participates in decisions affecting his or her perioperative plan of care The patient is free from signs and symptoms of infection The patient has wound/tissue perfusion consistent with or improved from baseline levels established preoperatively The patient is at or returning to normothermia at the conclusion of the immediate postoperative period The patient's respiratory function is consistent with or improved from baseline levels established preoperatively The patient's cardiovascular status is consistent with or improved from baseline levels established preoperatively The patient's cardiovascular status is consistent with or improved from baseline levels established preoperatively The patient demonstrates and/or reports adequate pain control throughout the perioperative period The patient received appropriate medication(s), safely administered during the perioperative period Acuity Level PACU I FT Entry 1 Start Time 07/16/22 13:32:00 Stop Time 07/16/22 14:25:00 Acuity Level Acuity Level I Last Modified By: Pina Goetz RN 07/16/22 14:40:07 Finalized By: Pina Goetz RN Document Signatures Signed By: Pina Goetz RN 07/16/22 14:40 Normal [facility] Monitor Recordon 07-16-2022 Monitor Record [id number]#1.00CD:127 [facility] Monitor Record [id number]#1.00CD:127 [facility] Monitor Record [id number]#1.00CD:127 [facility] [facility] Monitor Record [id number]:127 [facility] Progress Note - Pharmacyon 0 07-16-2022 Progress Note - Pharmacy Vancomycin Pharmacy to Dose Consult Note Indication: Skin and Skin Structure Infection Goal Range: Pre-HD Level 15 - 20 RECOMMENDATIONS/PLAN: Pharmacy consulted for vancomycin dosing for SETH MURPHY, a 66 Years Male who is being treated with vancomycin for cellulitis. 1.Vancomycin therapy is still active, today is day 5 of treatment. Patient is receiving Vancomycin dosed by levels. 2. The most recent vancomycin level was 27 mcg/mL drawn at 0602 on 07/16. . 3. The vancomycin level is not therapeutic, the following dosing adjustments have been mad: Hold dose and repeat level 07/18 with a.m. labs 4. The next level is scheduled for 0600 on 07/18. 5. A MRSA Nasal Swab is not appropriate at this time We will follow patient's renal function, vancomycin levels and doses with you during the course of therapy. Additional recommendations will appear in follow up notes. If you have any questions, please contact pharmacy at [phone]. Age: 66 Years Allergies: ALLERGIES Weight: Last Documented Weight and Type of Scale Used Last Documented Weight Weight Measured: 97.9 kg (07/16/22 07:32:00) Type of Scale Used Weight Measured Type of Scale: Bed Scale (digital) (07/12/22 14:49:00) Height: Last Documented Height/Length Last Documented Height/Length Height/Length Measured: 180.34 cm (07/16/22 07:32:00) CrCl: 7.74 mL/min Labs: HGB: 8.2 gm/dL Low (07/16/22 06:06:00) Hct: 23.9 % Low (07/16/22 06:06:00) Vanco Tr: 27 mcg/mL Critical (07/16/22 06:06:00) Glucose Cap: 323 mg/dL High (07/15/22 21:01:00) POC Device SN: [id number] (07/15/22 21:01:00) POC User ID: [id number] (07/15/22 21:01:00) POC Username: CLEMENCIA BROWNING (07/15/22 21:01:00) Normal [facility] Progress Note-Nurseon 2022 Progress Note-Nurse [id number]:127 Normal [facility] Progress Note-Physicianon Progress Note-Physician Patient: SETH MURPHY Age: 66 years Sex: Male : 1955 Associated Diagnoses: None Author: Gino Feliz Jr, DO Preoperative Information Anesthesia Preop Info: Time patient last ate or drank 07/16/2022 00:00:00. Anesthesia history: Patient history: None. Family history+: None. Informed consent: Signed by patient. Re-evaluation prior to induction: Initial evaluation reviewed: No significant change. Review of Systems Eye: Negative except as documented in history of present illness. Ear/Nose/Mouth/Throat: Negative except as documented in history of present illness. Respiratory: Negative except as documented in history of present illness. Cardiovascular: Negative except as documented in history of present illness. Musculoskeletal: Negative except as documented in history of present illness. Neurologic: Negative except as documented in history of present illness. Health Status Allergies: Allergic Reactions (Selected) Severity Not Documented Brilinta- Unknown. Coban Bandage- Rash. Problem list: All Problems Acute non-ST segment elevation myocardial infarction / SNOMED CT 0097352744 / Confirmed Acute systolic heart failure / SNOMED CT 0876192989 / Confirmed At risk for falls / SNOMED CT 976739290 / Possible Problem added when Risk for Falls Careplan was initiated. Coronary arteriosclerosis / SNOMED CT 36626062 / Confirmed Coronary artery disease / SNOMED CT 70920480 / Confirmed MRSA (methicillin resistant staph aureus) culture positive / SNOMED CT 5785426638 / Confirmed MRSA in lt arm wound 07/12/2022 Diabetes mellitus / SNOMED CT 918634856 / Confirmed Diabetes / SNOMED CT 187169637 / Confirmed Dyspnea / SNOMED CT 173752781 / Confirmed Dysuria / SNOMED CT 18334941 / Confirmed Edema of lower extremity / SNOMED CT 602092845 / Confirmed Electrocardiogram abnormal / SNOMED CT 5366837219 / Confirmed ESRD (end stage renal disease) on dialysis / SNOMED CT 648309599 / Confirmed Essential hypertension / SNOMED CT 09660665 / Confirmed Fatigue / SNOMED CT 621909317 / Confirmed Hyperlipidemia / SNOMED CT 04600240 / Confirmed Hypertension / SNOMED CT 2458164969 / Confirmed Hypothyroid / SNOMED CT 29903003 / Confirmed Impaired skin integrity / SNOMED CT 97807056 / Confirmed Problem added on documentation of skin impairments. Left ventricular hypertrophy / SNOMED CT 45791555 / Confirmed Neuropathy due to diabetes mellitus / SNOMED CT 6586865082 / Confirmed Pseudophakia / SNOMED CT 569360982 / Confirmed Apnea, sleep / SNOMED CT 278370262 / Confirmed Thrombophlebitis / SNOMED CT 626824813 / Confirmed Venous insufficiency of leg / SNOMED CT 581769010 / Confirmed Venous stasis ulcer of leg / SNOMED CT 8874147743 / Confirmed Resolved: Anemia / SNOMED CT 093828924 Resolved: Congestive heart failure / SNOMED CT 18440123 Resolved: Hyperlipidemia / SNOMED CT 72194319 Resolved: Palpitations / SNOMED CT 874890575 Resolved: Thrombosis of superficial vein of lower limb / SNOMED CT 6333048239 Canceled: ESRD on dialysis / SNOMED CT 225906119 Histories Procedure history: Insertion of hemodialysis catheter ([id number]) on 07/02/2022 at 66 Years. Fistulogram with contrast (5299059979) on 03/15/2022 at 66 Years. Fluoroscopic fistulogram with contrast (3168064243) on 11/02/2021 at 65 Years. Fistulogram with contrast (6802424144) on 08/04/2020 at 64 Years. Removal of catheter (125024084) on 07/07/2020 at 64 Years. Comments: 07/07/2020 11:09 CYNTHIA Caballero RN, Ilene Larson removal of hemodialysis catheter MULTI SLIDE MACHINE TENDER ([id number]) on 06/16/2020 at 64 Years. Comments: 06/16/2020 14:27 Lindy Sood RN MULTI SLIDE MACHINE TENDER of Left Fistula AV - Creation of arteriovenous fistula ([id number]) on 03/31/2020 at 64 Years. AV fistula recirculation ([id number]) on 08/06/2019 at 63 Years. Comments: 08/06/2019 14:34 Lizy Neal RN creation of av fistula of left arm. H/O: tracheostomy (002015987). Cholecystectomy (40413053). Abdominal hernia (771755766). Placement of stent in cardiac conduit x2 (5232314454). Social History Social & Psychosocial Habits Alcohol 07/29/2019 Risk Assessment: Denies Alcohol Use Comment: denies - 06/29/2022 16:52 - Mireya Christianson Substance Abuse 07/29/2019 Risk Assessment: Denies Substance Abuse Comment: denies - 06/29/2022 16:52 - Mireya Christianson Tobacco 07/29/2019 Risk Assessment: Denies Tobacco Use 07/12/2022 Tobacco Use: Never (less than 100 in l Smokeless tobacco use: Never . Physical Examination Airway: Mallampati classification: II (soft palate, fauces, uvula visible). Respiratory: adequate air exchange. Cardiovascular: Regular rhythm. Plan Citizen Of [place] Society of Anesthesiologists (ASA) physical status classification: Class IV. Anesthetic Preoperative Plan: Anesthesia General. Normal [facility] Comment on above: Result Comment: Elec tronically Signed By: Tray Solis DO, Gino Larson\.asael\Date and Time Signed: 07/16/22 14:49 EDT Progress Note-Physician Assessment/Plan 1. Sepsis (A41.9: Sepsis, unspecified organism) 2/2 AVF infection/cellulitis POA had hypotension, leukocytosis, source of infection.?Improving -HR: 111, M temp: 38.5, WBC: 23.8, LA: 5.9, + source -was given fluids with HD yesterday -IV Atb as below -See below 2. Cellulitis of arm (L03.119: Cellulitis of unspecified part of limb) LUE 2/2 open wounds - pt. failed outpt. keflex--improved. IV vanco/zosyn - 07/12 Consult ID: Vanco Zosyn, Wound cultures positive Final for MRSA could likely discontinue Zosyn with continued negative blood cultures. Will await completion of the vascular intervention. -Bl. cx - negative. -Pain mgt., supportive care -Elevate, outline area 3. AV fistula infection (T82.7XXA: Infection and inflammatory reaction due to other cardiac and vascular devices, implants and grafts, initial encounter) Consult vascular: (Dr. Alarcon - plan for OR today 07/16 - -LUE DUS: progressive thrombosis and surrounding soft tissue edema, hyperemia of LUE AV fistual -See above 4. Coronary artery disease (I25.10: Atherosclerotic heart disease of [place] coronary artery without angina pectoris) -Aspirin, atorvastatin, 5. Chronic systolic heart failure (I50.22: Chronic systolic (congestive) heart failure) Stable -Fluid mgt. per HD 6. Insulin dependent type 2 diabetes mellitus (E11.9: Type 2 diabetes mellitus without complications) Accuchecks AC/HS w/ SSI prn -Home regimen: Insulin 70/30 30u in AM and 14 u at HS -Increase insulin 70/30 14 units BID from only HS as BS have been elevated. -Hypoglycemic protocol 7. Peripheral neuropathy (G62.9: Polyneuropathy, unspecified) -Tylenol prn 8. ESRD on dialysis (N18.6: End stage renal disease) On HD M/W/F at [facility] -Consult nephro -appreciated -- typically takes midodrine 5mg on HD only for now will increase to daily dosing until infection improves -Pending HD today. 9. Hypothyroidism (E03.9: Hypothyroidism, unspecified) -Levothyroxine 10. Venous insufficiency of both lower extremities (I87.2: Venous insufficiency (chronic) (peripheral)) -Aspirin, atorvastatin 11. Venous stasis ulcer (I83.009: Varicose veins of unspecified lower extremity with ulcer of unspecified site) Chronic - POA -Consult wound care: Left aVF swab with Betadine and cover with gauze and Kerlix daily, right heel, Aquacel Ag every other day 12. On deep vein thrombosis (DVT) prophylaxis (Z79.899: Other chcf (current) drug therapy) -Heparin sq with early ambulation -Plan discussed w/ patient, nursing staff and CRM. This report was transcribed using voice recognition software. Every effort was made to ensure accuracy, however, inadvertently computerized carroting machine operator mistakes may be present. Subjective Patient seen this morning. He is drowsy which is not atypical for him in the morning. States that he did not sleep well last night. He is pending dialysis today following intervention by Dr. Alarcon to AV fistula site. Creatinine level is 11.6 today. Objective Vitals & Measurements T: 36.7 ?C(Oral) TMIN: 36.4 ?C(Oral) TMAX: 36.9 ?C(Oral) HR: 75(Monitored) RR: 18 BP: 127/73 SpO2: 94% HT: 180.34 cm WT: 97.9 kg Intake & Output This visit (24 hour periods starting at 07:00 EDT) 07/16/22 * 07/15/22 07/14/22 Total Summary Intake mL -- 640.06 110 Output mL -- -- -- Fluid Balance -- 640.06 110 Intake (3) Oral Intake mL -- 640 60 Sodium Chloride 0.9% intravenous solution 250 mL mL -- 0.06 -- Sodium Chloride 0.9%, piperacillin-tazobactam mL -- -- 50 Total -- 640.06 110 Output (0) Counts (1) Stool Count -- 2 3 * This column has not completed the indicated time period. Physical Exam General: Calm, able to communicate needs, Head: Normocephalic/atraumatic Eyes: Pupils equal, round. Conjunctivae and sclerae normal. HEENT: Mucous membrane moist. Tongue normal Neck: Trachea midline, neck supple, Chest: No chest wall deformity, no chest wall tenderness Lungs: CTA sanders Cardio: Normal rate, apical is regular, no edema. Pulses: Normal capillary refill Abdomen: Soft, non-distended, non-tender, normal BS Musculoskeletal: No deformity or scoliosis noted. Integumentary: Warm, dry, L chest permacath, LUE fistula site is red, erythemic, indurated, 2 open sites noted with creamy white drainage from distal open area, site is mildly warm to touch, tender to palpation, + radial pulse; venous stasis ulcer noted. Extremity: No clubbing, Neurologic: Alert, oriented x 4, follows commands, Mental status: Pleasant & cooperative, approp. affect Lab Results HGB: 8.2 gm/dL Low (07/16/22 06:06:00) Hct: 23.9 % Low (07/16/22 06:06:00) Glucose Lvl: 293 mg/dL High (07/16/22 06:06:00) BUN: 47 mg/dL High (07/16/22 06:06:00) Creatinine: 11.6 mg/dL Critical (07/16/22 06:06:00) eGFR: 4 mL/min/1.73 m2 Low (07/16/22 06:06:00) BUN/Creat Ratio: 4 Low (07/16/22 06:06:00) (more content not included)... Normal [facility] Comment on above: Result Comment: Elec tronically Signed By: Vijaya SANDOVAL\.br\Date and Time Signed: 07/16/22 11:35 EDT\.br\Electronically Co-Signed By: Pedro ARAUZ MD\.br\Date and Time Co-Signed: 07/16/22 12:52 EDT Progress Note-Physician Patient: SETH MURPHY Age: 66 years Sex: Male : 1955 Associated Diagnoses: None Author: Vane Miller MD Chief Complaint Interval History 66-year-old gentleman with end-stage kidney disease on hemodialysis Saturday at [place] (follows with Dr. Nunez, Last dialyzed on Saturday) presents to the hospital with left AV fistula pain and tenderness. He has history of hypertension, diabetes mellitus type 2. He saw Dr. Alarcon and was found to have AV fistula infection. He was found to have thrombosed left brachiocephalic fistula. HD catheter appears to be placed in late June 2022. He was found to be hypotensive today. His white count is 23. 07/16/22: Patient has no acute complaints today. Waiting for surgery. Review of Systems Constitutional: Negative except as documented in history of present illness. Eye: No double vision, No visual disturbances. Ear/Nose/Mouth/Throat Respiratory: No shortness of breath, No cough, No sputum production, No hemoptysis. Cardiovascular: No chest pain, No palpitations. Gastrointestinal: No nausea, No vomiting, No diarrhea, No abdominal pain. Genitourinary: No dysuria, No hematuria. Hematology/Lymphatics: No bleeding tendency, No swollen lymph glands. Endocrine: No excessive thirst, No polyuria, No cold intolerance, No heat intolerance. Immunologic: No recurrent fevers, No recurrent infections. Musculoskeletal: No neck pain, No joint pain, No muscle pain. Integumentary: No rash, No pruritus, No skin lesion. Neurologic: Alert and oriented X4, No numbness, No tingling. Psychiatric: No anxiety, No depression, No frankie. Health Status Allergies: Allergic Reactions (Selected) Severity Not Documented Brilinta- Unknown. Coban Bandage- Rash., Allergies (2) Active Reaction Brilinta Unknown Coban Bandage Rash Current medications: (Selected) Inpatient Medications Ordered Dextrose 50% Soln-IV: 50 mL, Soln-IV, IV Push, Once PRN Blood glucose, Routine, Start date 07/12/22 16:48:00 EDT HYDROmorphone 1 mg/mL injectable solution: 0.2 mg = 0.2 mL, Injection, IV Push, q2min PRN Pain for 10 dose(s), Stop date Limited # of times, Routine, Start date 07/16/22 11:20:00 EDT, 07/16/22 11:20:00 EDT HumaLOG Sliding Scale: 0-10 Units, Injection-Insulin, SubCutaneous, QIDACHS, Routine, Start date 07/12/22 21:00:00 EDT Humulin 70/30 10 mL Injection-Insulin: 14 unit(s) = 0.14 mL, Injection-Insulin, SubCutaneous, Bedtime, Routine, Start date 07/13/22 21:00:00 EDT Humulin 70/30 10 mL Injection-Insulin: 14 unit(s) = 0.14 mL, Injection-Insulin, SubCutaneous, Daily, Routine, Start date 07/17/22 9:00:00 EDT Lactated Ringers IV Nirmala 1000 mL 1,000 mL: 1,000 mL, IV, 100 mL/hr, Routine, Start date 07/16/22 11:20:00 EDT, 10 hour(s), Total volume (mL): 1,000, 96.8 kg, 2.2, m2 Phenergan 25 mg/mL Injection: 12.5 mg = 0.5 mL, Injection, IV Push, q2min PRN Other (see comment) for 2 dose(s), Stop date Limited # of times, Routine, Start date 07/16/22 11:20:00 EDT, 07/16/22 11:20:00 EDT Sodium Chloride 0.9% IV Nirmala 1000 mL 1,000 mL: 1,000 mL, IV, 150 mL/hr, Routine, Start date 07/16/22 10:00:00 EDT, 6.7 hour(s), Total volume (mL): 1,000, 96.8 kg, 2.2, m2 Sodium Chloride 0.9% IV Nirmala 250 mL bag 250 mL: 250 mL, IV, 20 mL/hr, Other (see comment), Routine, Start date 07/16/22 5:52:00 EDT, 12.5 hour(s), Total volume (mL): 250, 96.8 kg, 2.2, m2 Synthroid 100 mcg Tab: 100 mcg = 1 tab(s), Tab, Oral, Daily, Routine, Start date 07/13/22 6:30:00 EDT, 07/12/22 16:22:00 EDT Therapeutic Multiple Vitamins with Minerals Tab: 1 tab(s), Tab, Oral, Daily, Routine, Start date 07/13/22 9:00:00 EDT Zofran 4 mg/2 mL Injection: 4 mg = 2 mL, Injection, IV Push, q6hr PRN Nausea, Routine, Start date 07/12/22 15:58:00 EDT, 07/12/22 15:58:00 EDT acetaminophen 325 mg Tab: 650 mg = 2 tab(s), Tab, Oral, q6hr PRN Pain, Routine, Start date 07/12/22 15:58:00 EDT, 07/12/22 15:58:00 EDT aspirin 81 mg Chew Tab: 81 mg = 1 tab(s), Tab-Chew, Chewed, Daily, Routine, Start date 07/13/22 9:00:00 EDT, 07/12/22 16:22:00 EDT atorvastatin 40 mg Tab: 40 mg = 1 tab(s), Tab, Oral, Daily, Routine, Start date 07/13/22 9:00:00 EDT, 07/12/22 16:22:00 EDT heparin 5000 units/mL Inj: 5,000 unit(s) = 1 mL, Injection, SubCutaneous, BID for 30 day(s), Stop date 08/11/22 20:59:00 EDT, Routine, Start date 07/12/22 21:00:00 EDT, 07/12/22 16:46:00 EDT midodrine 5 mg Tab: 5 mg = 1 tab(s), Tab, Oral, Daily, Routine, Start date 07/14/22 9:00:00 EDT, 07/13/22 13:22:00 EDT piperacillin-tazobactam additive + Sodium Chloride 0.9% intravenous solution 50 mL: 4.5 gm = 1 EA, Injection, IV Piggyback, q12hr, Routine, Start date 07/12/22 18:00:00 EDT, 100 mL/hr, Infuse over 30 minute(s), Pharmacy to dose polyethylene glycol 3350 17 gram packet: 17 gm = 1 EA, Powder-Recon, Oral, Daily PRN Constipation, Routine, Start date 07/12/22 16:23:00 EDT, 07/12/22 16:23:00 EDT vancomycin IV PHARMACY TO DOSE: PHARMACY TO DOSE, Injection, IV, As Dire (more content not included)... Normal [facility] Comment on above: Result Comment: Elec tronically Signed By: Vane Miller MD\.br\Date and Time Signed: 07/16/22 12:12 EDT Vanco Troughon 07-16-2022 VANCOMYCIN 27 microgram/mL Abnormal 10-20 [facility] Comment on above: Result Comment: Crit ical Result verified by repeat analysis\Critical Result S_VANC_T:27.0 Called to SILVIO ARZOLA AT 3S by CATHY LERNER And Read Back For Confirmation at: 07/16/2022 07:34:50 Performed By: #### 1 [id number], [id number], [id number] #### [facility] [address] [place] [address] eGFRon 07-16-2022 GFR/1.73 sq M.predicted among non-blacks MDRD (S/P/Bld) [Vol rate/Area] 4 mL/min/1.73 m2 Low >=59 [facility] Comment on above: Order Comment: Order Added by Discern Expert. Result Comment: Painter Maintenance jm kidney disease could be indicated at eGFR's of less than 60 mL/min/1.73m2. Kidney failure is indicated at less than 15 mL/min/1.73m2. Performed By: #### 1 [id number], 9240877, 7157573, [id number] #### [facility] [address] [place] [address] Auto Diffon 07-15-2022 Basophils/100 WBC (Bld) 1.2 % Normal 0.0-2.0 [facility] Comment on above: Order Comment: Order Added by Discern Expert. Performed By: #### 1 [id number], [id number], 5993106, [id number] #### [facility] [address] [place] [address] Basophils/Leukocytes Auto (Bld) [Pure # fraction] 0.1 E9/L Normal 0.0-0.2 [facility] Comment on above: Order Comment: Order Added by Discern Expert. Performed By: #### 1 [id number], [id number], 1170455, [id number] #### [facility] [address] [place] [address] Eosinophils/100 WBC (Bld) 3.4 % Normal 0.0-8.0 [facility] Comment on above: Order Comment: Order Added by Discern Expert. Performed By: #### 1 [id number], 1073958, 4530310, [id number] #### [facility] [address] [place] [address] Eosinophils/Leukocytes Auto (Bld) [Pure # fraction] 0.2 E9/L Normal 0.0-0.5 [facility] Comment on above: Order Comment: Order Added by Cayla Expert. Performed By: #### 1 [id number], 9282172, 4230482, 8355764 #### [facility] [address] [place] [address] Lymphocytes/100 WBC (Bld) 11.3 % Low 14.0-50.0 [facility] Comment on above: Order Comment: Order Added by Cayla Expert. Performed By: #### 1 [id number], 2934455, 8086328, 8738283 #### [facility] [address] [place] [address] Lymphocytes/Leukocytes Auto (Bld) [Pure # fraction] 0.6 E9/L Low 1.0-4.0 [facility] Comment on above: Order Comment: Order Added by Discern Expert. Performed By: #### 1 [id number], 8037254, 6362162, 8025033 #### [facility] [address] [place] [address] Monocytes/100 WBC (Bld) 16.4 % High 4.0-14.0 [facility] Comment on above: Order Comment: Order Added by Cayla Expert. Performed By: #### 1 [id number], 3820080, 9579035, 3273323 #### [facility] [address] [place] [address] Monocytes/Leukocytes Auto (Bld) [Pure # fraction] 0.9 E9/L Normal 0.2-1.0 [facility] Comment on above: Order Comment: Order Added by Discern Expert. Performed By: #### 1 [id number], 7553310, 0394731, 9350003 #### [facility] [address] [place] [address] Neutrophils/100 WBC (Bld) 67.7 % Normal 36.0-75.0 [facility] Comment on above: Order Comment: Order Added by Discern Expert. Performed By: #### 1 [id number], 7026803, 7010638, 9444189 #### [facility] [address] [place] [address] Neutrophils/Leukocytes Auto (Bld) [Pure # fraction] 3.7 E9/L Normal 2.0-7.5 [facility] Comment on above: Order Comment: Order Added by Discern Expert. Performed By: #### 1 [id number], 0980828, 3625058, 2622885 #### [facility] [address] [place] [address] CBC w/ Auto Diffon 3 Erythrocyte distribution width (RBC) [Ratio] 16.7 % High 10.9-14.2 [facility] Comment on above: Performed By: #### 1 [id number], 0098869, 7665917, 3061712 #### [facility] [address] [place] [address] Hematocrit (Bld) [Volume fraction] 24.3 % Low 37.7-49.0 [facility] Comment on above: Performed By: #### 1 7729534, 9819398, 7213928, 8894623 #### [facility] [address] [place] [address] Hemoglobin (Bld) [Mass/Vol] 8.0 g/dL Low 13.5-17.5 [facility] Comment on above: Performed By: #### 1 0460739, 1264428, 3010924, 1437241 #### [facility] [address] [place] [address] MCH (RBC) [Entitic mass] 29.7 pg Normal 27.0-34.0 [facility] Comment on above: Performed By: #### 1 7415033, 2598391, 0411214, 2280832 #### [facility] [address] [place] [address] MCHC (RBC) [Mass/Vol] 32.9 g/dL Normal 31.4-36.0 [facility] Comment on above: Performed By: #### 1 1510479, 5582718, 2362146, 5243759 #### [facility] [address] [place] [address] MCV (RBC) [Entitic vol] 90.1 fL Normal 80.0-100.0 [facility] Comment on above: Performed By: #### 1 5863329, 0234291, 1880739, 0929883 #### [facility] [address] [place] [address] Platelet mean volume (Bld) [Entitic vol] 7.9 fL Normal 6.4-10.8 [facility] Comment on above: Performed By: #### 1 8442344, 1228951, 6862271, 8429476 #### [facility] [address] [place] [address] Platelets (Bld) [#/Vol] 219.0 E9/L Normal 150.0-500. 0 [facility] Comment on above: Performed By: #### 1 4892807, 2352584, 6693640, 7827706 #### [facility] [address] [place] [address] RBC (Bld) [#/Vol] 2.7 E12/L Low 4.3-5.9 [facility] Comment on above: Performed By: #### 1 0626654, 9818247, 0056499, 2704758 #### [facility] [address] [place] [address] WBC corrected for nucl RBC Auto (Bld) [#/Vol] 5.5 E9/L Normal 4.0-11.0 [facility] Comment on above: Performed By: #### 1 3712715, 9886642, 0992924, 8757650 #### [facility] [address] [place] [address] CMPon 07-15-2022 Creatinine [Mass/Vol] 10.0 mg/dL Abnormal 0.5-1.3 [facility] Comment on above: Result Comment: Crit ical Result S_CREA:10.00 Called to HIRO VALERIO AT 3S by CATHY LERNER And Read Back For Confirmation at: 07/15/2022 10:15:30\Result S_CREA:10.00 Called to HIRO WILCOXING AT 3S by CATHY LERNER And Read Back For Confirmation at: 07/15/2022 10:15:30\ATTEMPTED TO CALL RESULT X2\Critical Result verified by previous result Performed By: #### 1 [id number], 0232604, 0504116, 3814926 #### [facility] [address] [place] [address] Albumin [Mass/Vol] 2.2 g/dL Low 3.3-5.0 [facility] Comment on above: Performed By: #### 1 5678686, 7682988, 4811901, 3533627 #### [facility] [address] [place] [address] Albumin/Globulin (S) [Mass conc ratio] 0.7 Low 1.1-2.2 [facility] Comment on above: Performed By: #### 1 2787286, 3092349, 5759103, 2987574 #### [facility] [address] [place] [address] ALP [Catalytic activity/Vol] 39 Int._Unit/L Normal 21-98 [facility] Comment on above: Performed By: #### 1 0144339, 0555381, 4806985, 2963845 #### [facility] [address] [place] [address] ALT No additional P-5'-P [Catalytic activity/Vol] 17 Int._Unit/L Normal 6-46 [facility] Comment on above: Performed By: #### 1 0681874, 3818098, 3998610, 1082169 #### [facility] [address] [place] [address] Anion gap [Moles/Vol] 15 mmol/L Normal 6-16 [facility] Comment on above: Performed By: #### 1 6298751, 3518927, 5805388, 9209930 #### [facility] [address] [place] [address] AST [Catalytic activity/Vol] 47 Int._Unit/L High 5-43 [facility] Comment on above: Performed By: #### 1 5353370, 6952357, 2953875, 0673607 #### [facility] [address] [place] [address] Bilirubin [Mass/Vol] 0.8 mg/dL Normal 0.0-1.1 [facility] Comment on above: Performed By: #### 1 0055319, 7234193, 4352993, 9746939 #### [facility] [address] [place] [address] Calcium [Mass/Vol] 8.6 mg/dL Low 8.9-11.1 [facility] Comment on above: Performed By: #### 1 4799091, 8966846, 4204660, 7417847 #### [facility] [address] [place] [address] Chloride [Moles/Vol] 100 mmol/L Low 101-111 [facility] Comment on above: Performed By: #### 1 1804906, 9811969, 8677903, 4476794 #### [facility] [address] [place] [address] CO2 [Moles/Vol] 24 mmol/L Normal 21-31 [facility] Comment on above: Performed By: #### 1 4384047, 8479351, 5599855, 7941899 #### [facility] [address] [place] [address] Globulin (S) [Mass/Vol] 3.2 g/dL Normal 1.4-4.0 [facility] Comment on above: Performed By: #### 1 0184592, 4977667, 0819092, 5236345 #### [facility] [address] [place] [address] Glucose [Mass/Vol] 202 mg/dL High 55-199 [facility] Comment on above: Result Comment: If t his glucose result represents a fasting glucose, interpretation should refer to the following reference range: 55-99 mg/dL Performed By: #### 1 1856080, 2348361, 8037469, 9157626 #### [facility] [address] [place] [address] Potassium [Moles/Vol] 3.7 mmol/L Normal 3.5-5.3 [facility] Comment on above: Performed By: #### 1 5296034, 5456561, 4138664, 4544087 #### [facility] [address] [place] [address] Protein [Mass/Vol] 5.4 g/dL Low 6.0-7.8 [facility] Comment on above: Performed By: #### 1 1490431, 1825804, 1678955, 6527151 #### [facility] [address] [place] [address] Sodium [Moles/Vol] 135 mmol/L Normal 135-145 [facility] Comment on above: Performed By: #### 1 3325231, 4847233, 6364383, 0579452 #### [facility] [address] [place] [address] Urea nitrogen [Mass/Vol] 42 mg/dL High 5-21 [facility] Comment on above: Performed By: #### 1 7349172, 6298524, 0855701, 2668448 #### [facility] [address] [place] [address] Urea nitrogen/Creatinine [Mass ratio] 4 No Units Low 10-20 [facility] Comment on above: Performed By: #### 1 4421386, 4912032, 8861145, 3422919 #### [facility] [address] [place] [address] Capillary Glucose POCon Glucose [Mass/Vol] 323 mg/dL High 55-99 [facility] Comment on above: Result Comment: Ambrocio ELIAS Performed By: #### 2 32511206 ####[facility] [address] [place] [address] Glucose [Mass/Vol] 297 mg/dL High - [facility] Comment on above: Performed By: #### 2 12964503 ####[facility] [address] [place] [address] Glucose [Mass/Vol] 244 mg/dL High - [facility] Comment on above: Result Comment: Ambrocio vargas RN/ Performed By: #### 2 87520346 ####[facility] [address] [place] [address] Glucose [Mass/Vol] 317 mg/dL High - [facility] Comment on above: Result Comment: Ambrocio ELIAS Performed By: #### 2 [id number] ####[facility] [address] [place] [address] Glucose [Mass/Vol] 171 mg/dL High [facility] Comment on above: Result Comment: Ambrocio ELIAS Performed By: #### 1 9334313, 6578562, 2675781, 3472974 #### [facility] [address] [place] [address] Hep Bs Agon 07-15-2022 HBV surface Ag IA Ql Negative Invalid Interpretation Code Negative [facility] Comment on above: Result Comment: Perf ormed at: [facility] [address] [id number] PhD Jany Aparicio Performed By: #### 1 0543395, 9429830, 8706284, 5430834 #### [facility] [address] [place] [address] Interdisciplinary Note - Paresh e Manageron 07-15-2022 Interdisciplinary Note - Independent Beauty Consultant Pt is aware [facility] has accepted. Pt will see Vascular and ID this week. Ant dc TBD. 3MN was met today. CRM to follow. Normal [facility] Comment on above: Result Comment: Elec tronically Signed By: Sarah Tena.br\Date and Time Signed: 07/15/22 11:25 EDT Monitor Recordon 07-15-2022 Monitor Record [id number]#1.00CD:127 Normal [facility] Monitor Record [id number]#1.00CD:127 Normal [facility] Monitor Record [id number]#1.00CD:127 Normal [facility] Monitor Record [id number]#1.00CD:127 Normal [facility] eGFRon 07-15-2022 GFR/1.73 sq M.predicted among non-blacks MDRD (S/P/Bld) [Vol rate/Area] 5 mL/min/1.73 m2 Low >=59 [facility] Comment on above: Order Comment: Order Added by Discern Expert. Result Comment: Painter Maintenance jm kidney disease could be indicated at eGFR's of less than 60 mL/min/1.73m2. Kidney failure is indicated at less than 15 mL/min/1.73m2. Performed By: #### 1 1621834, 4556253, 0007143, 3138725 #### [facility] [address] [place] [address] Auto Diffon 07-14-2022 Basophils/100 WBC (Bld) 0.7 % Normal 0.0-2.0 [facility] Comment on above: Order Comment: Order Added by Discern Expert. Performed By: #### 1 8556494, 5242073, 4143827, 3247462 #### [facility] [address] [place] [address] Basophils/Leukocytes Auto (Bld) [Pure # fraction] 0.1 E9/L Normal 0.0-0.2 [facility] Comment on above: Order Comment: Order Added by Discern Expert. Performed By: #### 1 9767265, 7756439, 3366505, 1162184 #### [facility] [address] [place] [address] Eosinophils/100 WBC (Bld) 1.1 % Normal 0.0-8.0 [facility] Comment on above: Order Comment: Order Added by Discern Expert. Performed By: #### 1 5747050, 5224571, 7648878, 1843837 #### [facility] [address] [place] [address] Eosinophils/Leukocytes Auto (Bld) [Pure # fraction] 0.1 E9/L Normal 0.0-0.5 [facility] Comment on above: Order Comment: Order Added by Cayla Expert. Performed By: #### 1 5367757, 0914729, 1906760, 0591340 #### [facility] [address] [place] [address] Lymphocytes/100 WBC (Bld) 1.7 % Low 14.0-50.0 [facility] Comment on above: Order Comment: Order Added by Cayla Expert. Performed By: #### 1 3172812, 8446651, 5432756, 7903698 #### [facility] [address] [place] [address] Lymphocytes/Leukocytes Auto (Bld) [Pure # fraction] 0.2 E9/L Low 1.0-4.0 [facility] Comment on above: Order Comment: Order Added by Discern Expert. Performed By: #### 1 7363756, 9645991, 8383991, 3574721 #### [facility] [address] [place] [address] Monocytes/100 WBC (Bld) 6.3 % Normal 4.0-14.0 [facility] Comment on above: Order Comment: Order Added by Cayla Expert. Performed By: #### 1 9953861, 1199821, 4045727, 6051800 #### [facility] [address] [place] [address] Monocytes/Leukocytes Auto (Bld) [Pure # fraction] 0.7 E9/L Normal 0.2-1.0 [facility] Comment on above: Order Comment: Order Added by Discern Expert. Performed By: #### 1 5850410, 0639218, 3577831, 6024455 #### [facility] [address] [place] [address] Neutrophils/100 WBC (Bld) 90.2 % High 36.0-75.0 [facility] Comment on above: Order Comment: Order Added by Discern Expert. Performed By: #### 1 4361744, 2025514, 9545160, 2766764 #### [facility] [address] [place] [address] Neutrophils/Leukocytes Auto (Bld) [Pure # fraction] 9.9 E9/L High 2.0-7.5 [facility] Comment on above: Order Comment: Order Added by Discern Expert. Performed By: #### 1 4134778, 3818795, 7021998, 9289251 #### [facility] [address] [place] [address] BMPon 07-14-2022 Creatinine [Mass/Vol] 7.2 mg/dL High 0.5-1.3 [facility] Comment on above: Performed By: #### 1 2238055, 3597913, 0524936, 8279277 #### [facility] [address] [place] [address] Anion gap [Moles/Vol] 15 mmol/L Normal 6-16 [facility] Comment on above: Performed By: #### 1 9441972, 3288287, 6832426, 2910893 #### [facility] [address] [place] [address] Calcium [Mass/Vol] 8.2 mg/dL Low 8.9-11.1 [facility] Comment on above: Performed By: #### 1 3593701, 4115948, 0306237, 0116965 #### [facility] [address] [place] [address] Chloride [Moles/Vol] 98 mmol/L Low 101-[address] [facility] Comment on above: Performed By: #### 1 7000771, 5348729, 3564079, 7904661 #### [facility] [address] [place] [address] CO2 [Moles/Vol] 24 mmol/L Normal 21-31 [facility] Comment on above: Performed By: #### 1 1643354, 3125538, 6014773, 7477620 #### [facility] [address] [place] [address] Glucose [Mass/Vol] 190 mg/dL Normal 55-199 [facility] Comment on above: Result Comment: If t his glucose result represents a fasting glucose, interpretation should refer to the following reference range: 55-99 mg/dL Performed By: #### 1 1739670, 1194415, 5366234, 9364426 #### [facility] [address] [place] [address] Potassium [Moles/Vol] 3.7 mmol/L Normal 3.5-5.3 [facility] Comment on above: Performed By: #### 1 7499040, 1820054, 3656450, 3652763 #### [facility] [address] [place] [address] Sodium [Moles/Vol] 133 mmol/L Low 135-145 [facility] Comment on above: Performed By: #### 1 2583840, 5418433, 0464041, 4969907 #### [facility] [address] [place] [address] Urea nitrogen [Mass/Vol] 26 mg/dL High 5-21 [facility] Comment on above: Performed By: #### 1 1486037, 7669912, 5475147, 7653742 #### [facility] [address] [place] [address] Urea nitrogen/Creatinine [Mass ratio] 4 No Units Low 10-20 [facility] Comment on above: Performed By: #### 1 5082290, 4410285, 7463136, 4956350 #### [facility] [address] [place] [address] CBC w/ Auto Diffon 3 Erythrocyte distribution width (RBC) [Ratio] 17.1 % High 10.9-14.2 [facility] Comment on above: Performed By: #### 1 1435081, 7431211, 1860049, 0546958 #### [facility] [address] [place] [address] Hematocrit (Bld) [Volume fraction] 25.5 % Low 37.7-49.0 [facility] Comment on above: Performed By: #### 1 3096598, 6181407, 1411988, 0343611 #### [facility] [address] [place] [address] Hemoglobin (Bld) [Mass/Vol] 8.5 g/dL Low 13.5-17.5 [facility] Comment on above: Performed By: #### 1 3679795, 3406829, 6407973, 1792983 #### [facility] [address] [place] [address] MCH (RBC) [Entitic mass] 29.6 pg Normal 27.0-34.0 [facility] Comment on above: Performed By: #### 1 6782759, 4462969, 4086231, 6252878 #### [facility] [address] [place] [address] MCHC (RBC) [Mass/Vol] 33.2 g/dL Normal 31.4-36.0 [facility] Comment on above: Performed By: #### 1 7802386, 9014509, 9069139, 2878168 #### [facility] [address] [place] [address] MCV (RBC) [Entitic vol] 89.4 fL Normal 80.0-100.0 [facility] Comment on above: Performed By: #### 1 8196805, 1519436, 4399445, 4139405 #### [facility] [address] [place] [address] Platelet mean volume (Bld) [Entitic vol] 7.6 fL Normal 6.4-10.8 [facility] Comment on above: Performed By: #### 1 4716200, 0246226, 9800413, 7801256 #### [facility] [address] [place] [address] Platelets (Bld) [#/Vol] 219.0 E9/L Normal 150.0-500. 0 [facility] Comment on above: Performed By: #### 1 1566062, 0687930, 7264391, 8807533 #### [facility] [address] [place] [address] RBC (Bld) [#/Vol] 2.8 E12/L Low 4.3-5.9 [facility] Comment on above: Performed By: #### 1 0551645, 0064719, 5813691, 4515240 #### [facility] [address] [place] [address] WBC corrected for nucl RBC Auto (Bld) [#/Vol] 11.0 E9/L Normal 4.0-11.0 [facility] Comment on above: Performed By: #### 1 2418409, 1027987, 6197833, 3536798 #### [facility] [address] [place] [address] Capillary Glucose POCon 06-0 -2022 Glucose [Mass/Vol] 233 mg/dL High 55-99 [facility] Comment on above: Performed By: #### 2 54659174 ####[facility] [address] [place] [address] Glucose [Mass/Vol] 144 mg/dL High 55-99 [facility] Comment on above: Result Comment: Ambrocio vargas RN/ Performed By: #### 1 4519732, 1449053, 2802692, 5256136 #### [facility] [address] [place] [address] Glucose [Mass/Vol] 202 mg/dL High 55-99 [facility] Comment on above: Result Comment: Ambrocio ELIAS Performed By: #### 2 670536, 69908376, 9607051 #### [facility] [address] [place] [address] Glucose [Mass/Vol] 180 mg/dL High 55-99 [facility] Comment on above: Result Comment: Ambrocio ELIAS Performed By: #### 1 8915869, 3039474, 0990970, 4874633 #### [facility] [address] [place] [address] Lactic Acidon 07-14-2022 Lactate [Mass/Vol] 1.1 mmol/L Normal 0.5-2.2 [facility] Comment on above: Performed By: #### 1 6270131, 5755193, 1775449, 5550569 #### [facility] [address] [place] [address] Monitor Recordon 07-14-2022 Monitor Record [id number]#1.00CD:127 Normal [facility] Monitor Record [id number]#1.00CD:127 Normal [facility] Monitor Record [id number]#1.00CD:127 Normal [facility] Progress Note-Physicianon Progress Note-Physician Assessment/Plan 1. Sepsis (A41.9: Sepsis, unspecified organism) 2/2 AVF infection/cellulitis POA had hypotension, leukocytosis, source of infection. -HR: 111, Mtemp: 38.5, WBC: 23.8, LA: 5.9, + source -was given fluids with HD yesterday. -IV Atb as below -See below 2. Cellulitis of arm (L03.119: Cellulitis of unspecified part of limb) LUE 2/2 open wounds - pt. failed outpt. keflex IV vanco/zosyn - 07/12 Consult ID: Broadly covered with appropriate Vanco Zosyn, Wound cultures positive Final for MRSA -Bl. cx - prelim negative. -Pain mgt., supportive care -Elevate, outline area 3. AV fistula infection (T82.7XXA: Infection and inflammatory reaction due to other cardiac and vascular devices, implants and grafts, initial encounter) Consult vascular: (Dr. Alarcon aware of pt., as he was seen in clinic today) - plan for possible OR on 07/16 - will need NPO order placed on 07/15 -LUE DUS: progressive thrombosis and surrounding soft tissue edema, hyperemia of LUE AV fistual -See above 4. Coronary artery disease (I25.10: Atherosclerotic heart disease of [place] coronary artery without angina pectoris) -Aspirin, atorvastatin, 5. Chronic systolic heart failure (I50.22: Chronic systolic (congestive) heart failure) Stable -Fluid mgt. per HD 6. Insulin dependent type 2 diabetes mellitus (E11.9: Type 2 diabetes mellitus without complications) Accuchecks AC/HS w/ SSI prn -Home regimen: Insulin 70/30 14u HS -Increase insulin 70/30 to 14 u HS - uptitrate as tolerated -Hypoglycemic protocol 7. Peripheral neuropathy (G62.9: Polyneuropathy, unspecified) -Tylenol prn 8. ESRD on dialysis (N18.6: End stage renal disease) On HD M/W/F at [facility] -Consult nephro - pending -BP is soft today - typically takes midodrine 5mg on HD only for now will increase to daily dosing until infection improves -Discussed labs w/ HD nurse Margarito who will review labs with Dr. Walker for HD options today 9. Hypothyroidism (E03.9: Hypothyroidism, unspecified) -Levothyroxine 10. Venous insufficiency of both lower extremities (I87.2: Venous insufficiency (chronic) (peripheral)) -Aspirin, atorvastatin 11. Venous stasis ulcer (I83.009: Varicose veins of unspecified lower extremity with ulcer of unspecified site) Chronic - POA -Consult wound care: Left aVF swab with Betadine and cover with gauze and Kerlix daily, right heel, Aquacel Ag every other day 12. On deep vein thrombosis (DVT) prophylaxis (Z79.899: Other intermodal dispatcher (current) drug therapy) -Heparin sq with early ambulation -Plan discussed w/ patient, nursing staff and CRM. This report was transcribed using voice recognition software. Every effort was made to ensure accuracy, however, inadvertently computerized carroting machine operator mistakes may be present. Subjective Pt seen at bedside this morning. States he still feels very weak. Per nursing pt attempted to get out of bed last night and fell beside bed. he was evaluated by w/no further order/no injury noted. Pt states he just feels tired. Denies CP, SOB, N/V. Per nursing pt has had 2 diarrhea stools but does not have foul smell or infectious appearance. Will obtain stool for cdiff/enteric if diarrhea continues. Objective Vitals & Measurements T: 37.2 ?C(Oral) TMIN: 36.1 ?C(Axillary) TMAX: 37.5 ?C(Axillary) HR: 82(Monitored) RR: 20 BP: 102/56 SpO2: 95% WT: 95.7 kg Intake & Output This visit (24 hour periods starting at 07:00 EDT) 07/14/22 * 07/13/22 07/12/22 Total Summary Intake mL -- 50 52 Output mL -- -- -- Fluid Balance -- 50 52 Intake (2) Sodium Chloride 0.9%, piperacillin-tazobactam mL -- 50 50 ondansetron mL -- -- 2 Total -- 50 52 Output (0) Counts (1) Stool Count 1 -- 2 * This column has not completed the indicated time period. Physical Exam General: Calm, able to communicate needs, Head: Normocephalic/atraumatic Eyes: Pupils equal, round. Conjunctivae and sclerae normal. HEENT: Mucous membrane moist. Tongue normal Neck: Trachea midline, neck supple, Chest: No chest wall deformity, no chest wall tenderness Lungs: CTA sanders Cardio: Normal rate, apical is regular, no edema. Pulses: Normal capillary refill Abdomen: Soft, non-distended, non-tender, normal BS Musculoskeletal: No deformity or scoliosis noted. Integumentary: Warm, dry, L chest permacath, LUE fistula site is red, erythemic, indurated, 2 open sites noted with creamy white drainage from distal open area, site is mildly warm to touch, tender to palpation, + radial pulse; venous stasis ulcer noted. Extremity: No clubbing, Neurologic: Alert, oriented x 4, follows commands, Mental status: Pleasant & cooperative, approp. affect, Lab Results WBC: 11 E9/L (06/03/23 05:51:00) RBC: 2.8 E12/L Low (07/14/22 05:51:00) HGB: 8.5 gm/dL Low (07/14/22 05:51:00) Hct: 25.5 % Low (07/14/22 05:51:00) MCV: 89.4 fL (07/14/22 05:51:00) MCH: 29.6 pg (0 (more content not included)... Normal [facility] Comment on above: Result Comment: Elec tronically Signed By: Vijaya SANDOVAL\.br\Date and Time Signed: 07/14/22 13:12 EDT\.br\Electronically Co-Signed By: Fuentes Rodriguez MD\.br\Date and Time Co-Signed: 07/14/22 14:51 EDT eGFRon 07-14-2022 GFR/1.73 sq M.predicted among non-blacks MDRD (S/P/Bld) [Vol rate/Area] 8 mL/min/1.73 m2 Low >=59 [facility] Comment on above: Order Comment: Order added by Discern Expert. Result Comment: Painter Maintenance jm kidney disease could be indicated at eGFR's of less than 60 mL/min/1.73m2. Kidney failure is indicated at less than 15 mL/min/1.73m2. Performed By: #### 1 8920839, 3784617, 5136846, 9238381 #### [facility] [address] [place] [address] BMPon 07-13-2022 Creatinine [Mass/Vol] 9.3 mg/dL Abnormal 0.5-1.3 [facility] Comment on above: Result Comment: Crit ical Result verified by repeat analysis\Critical Result S_CREA:9.30 Called to MARYURI MCKEON AT 3S by NEDA MACHUCA And Read Back For Confirmation at: 07/13/2022 06:50:42\Result S_CREA:9.30 Called to MARYURI MCKEON AT 3S by NEDA MACHUCA And Read Back For Confirmation at: 07/13/2022 06:50:42 Performed By: #### 2 714316, 54940578, 4707415 ####[facility] [address] [place] [address] Anion gap [Moles/Vol] 16 mmol/L Normal 6-16 [facility] Comment on above: Performed By: #### 2 092825, 63951778, 7768180 ####[facility] [address] [place] [address] Calcium [Mass/Vol] 8.9 mg/dL Normal 8.9-11.1 [facility] Comment on above: Performed By: #### 2 825745, 11475514, 3984386 ####[facility] [address] [place] [address] Chloride [Moles/Vol] 101 mmol/L Normal 101-111 [facility] Comment on above: Performed By: #### 2 127265, 02121003, 0933965 ####[facility] [address] [place] [address] CO2 [Moles/Vol] 23 mmol/L Normal 21-31 [facility] Comment on above: Performed By: #### 2 078289, 53568886, 2600733 ####[facility] [address] [place] [address] Glucose [Mass/Vol] 266 mg/dL High 55-199 [facility] Comment on above: Result Comment: If t his glucose result represents a fasting glucose, interpretation should refer to the following reference range: 55-99 mg/dL Performed By: #### 2 297137, 32276905, 6937355 ####[facility] [address] [place] [address] Potassium [Moles/Vol] 3.5 mmol/L Normal 3.5-5.3 [facility] Comment on above: Performed By: #### 2 836834, 20228843, 4409152 ####[facility] [address] [place] [address] Sodium [Moles/Vol] 136 mmol/L Normal 135-145 [facility] Comment on above: Performed By: #### 2 623205, 70039001, 1651382 ####[facility] [address] [place] [address] Urea nitrogen [Mass/Vol] 31 mg/dL High 5-21 [facility] Comment on above: Performed By: #### 2 580385, 16386753, 6343311 ####[facility] [address] [place] [address] Urea nitrogen/Creatinine [Mass ratio] 3 No Units Low 10-20 [facility] Comment on above: Performed By: #### 2 204303, 76922639, 6507421 ####[facility] [address] [place] [address] CRPon 07-13-2022 CRP [Mass/Vol] 8.9 mg/dL High <=1.9 [facility] Comment on above: Performed By: #### 1 2004922, 7236247, 6795271, 4080824 #### [facility] [address] [place] [address] Capillary Glucose POCon 06-0 Glucose [Mass/Vol] 256 mg/dL High 55-99 [facility] Comment on above: Result Comment: Ambrocio ELIAS Performed By: #### 2 852387, 31032194, 5214320 #### [facility] [address] [place] [address] Glucose [Mass/Vol] 268 mg/dL High 55-99 [facility] Comment on above: Performed By: #### 1 1687822, 4084030, 6703835, 7692838 #### [facility] [address] [place] [address] Glucose [Mass/Vol] 247 mg/dL High 55-99 [facility] Comment on above: Result Comment: Ambrocio ELIAS Performed By: #### 2 68702453 #### [facility] [address] [place] [address] Glucose [Mass/Vol] 279 mg/dL High 55-99 [facility] Comment on above: Result Comment: Ambrocio vargas RN/ Performed By: #### 2 [id number] ####[facility] [id number] [place] [address] Consultation Noteon 07-14-19 Consultation Note Patient: LALY MURPHY Age: 66 years Sex: Male : 1955 Associated Diagnoses: None Author: Aaron FISH Cristino Chief Complaint 07/12/2022 14:28 EDT r/o infection of fistula 07/12/2022 13:24 EDT Inpatient F/U Interval History 66-year-old gentleman with end-stage kidney disease on hemodialysis Saturday at [place] (follows with Dr. Nunez, Last dialyzed on Saturday) presents to the hospital with left AV fistula pain and tenderness. He has history of hypertension, diabetes mellitus type 2. He saw Dr. Alarcon and was found to have AV fistula infection. He was found to have thrombosed left brachiocephalic fistula. HD catheter appears to be placed in late June 2022. He was found to be hypotensive today. His white count is 23. Review of Systems Constitutional: Negative except as documented in history of present illness. Eye: No double vision, No visual disturbances. Ear/Nose/Mouth/Throat Respiratory: No shortness of breath, No cough, No sputum production, No hemoptysis. Cardiovascular: No chest pain, No palpitations. Gastrointestinal: No nausea, No vomiting, No diarrhea, No abdominal pain. Genitourinary: No dysuria, No hematuria. Hematology/Lymphatics: No bleeding tendency, No swollen lymph glands. Endocrine: No excessive thirst, No polyuria, No cold intolerance, No heat intolerance. Immunologic: No recurrent fevers, No recurrent infections. Musculoskeletal: No neck pain, No joint pain, No muscle pain. Integumentary: No rash, No pruritus, No skin lesion. Neurologic: Alert and oriented X4, No numbness, No tingling. Psychiatric: No anxiety, No depression, No frankie. Health Status Allergies: Allergic Reactions (Selected) Severity Not Documented Brilinta- Unknown. Coban Bandage- Rash., Allergies (2) Active Reaction Brilinta Unknown Coban Bandage Rash Current medications: (Selected) Inpatient Medications Ordered Dextrose 50% Soln-IV: 50 mL, Soln-IV, IV Push, Once PRN Blood glucose, Routine, Start date 07/12/22 16:48:00 EDT HumaLOG Sliding Scale: 0-10 Units, Injection-Insulin, SubCutaneous, QIDACHS, Routine, Start date 07/12/22 21:00:00 EDT Humulin 70/30 10 mL Injection-Insulin: 14 unit(s) = 0.14 mL, Injection-Insulin, SubCutaneous, Bedtime, Routine, Start date 07/13/22 21:00:00 EDT Sodium Chloride 0.9% IV Nirmala 1000 mL 1,000 mL: 1,000 mL, IV, 150 mL/hr, Routine, Start date 07/16/22 10:00:00 EDT, 6.7 hour(s), Total volume (mL): 1,000, 96.8 kg, 2.2, m2 Sodium Chloride 0.9% IV Nirmala 500 mL 500 mL: 500 mL, IV, 500 mL/hr, for 1 dose(s), Stop date 07/13/22 14:28:00 EDT, Routine, Start date 07/13/22 13:29:00 EDT, 1 hour(s), Total volume (mL): 500, 96.8 kg, 2.2, m2 Synthroid 100 mcg Tab: 100 mcg = 1 tab(s), Tab, Oral, Daily, Routine, Start date 07/13/22 6:30:00 EDT, 07/12/22 16:22:00 EDT Therapeutic Multiple Vitamins with Minerals Tab: 1 tab(s), Tab, Oral, Daily, Routine, Start date 07/13/22 9:00:00 EDT Zofran 4 mg/2 mL Injection: 4 mg = 2 mL, Injection, IV Push, q6hr PRN Nausea, Routine, Start date 07/12/22 15:58:00 EDT, 07/12/22 15:58:00 EDT acetaminophen 325 mg Tab: 650 mg = 2 tab(s), Tab, Oral, q6hr PRN Pain, Routine, Start date 07/12/22 15:58:00 EDT, 07/12/22 15:58:00 EDT aspirin 81 mg Chew Tab: 81 mg = 1 tab(s), Tab-Chew, Chewed, Daily, Routine, Start date 07/13/22 9:00:00 EDT, 07/12/22 16:22:00 EDT atorvastatin 40 mg Tab: 40 mg = 1 tab(s), Tab, Oral, Daily, Routine, Start date 07/13/22 9:00:00 EDT, 07/12/22 16:22:00 EDT heparin 5000 units/mL Inj: 5,000 unit(s) = 1 mL, Injection, SubCutaneous, BID for 30 day(s), Stop date 08/11/22 20:59:00 EDT, Routine, Start date 07/12/22 21:00:00 EDT, 07/12/22 16:46:00 EDT midodrine 5 mg Tab: 5 mg = 1 tab(s), Tab, Oral, Daily, Routine, Start date 07/14/22 9:00:00 EDT, 07/13/22 13:22:00 EDT piperacillin-tazobactam additive + Sodium Chloride 0.9% intravenous solution 50 mL: 4.5 gm = 1 EA, Injection, IV Piggyback, q12hr, Routine, Start date 07/12/22 18:00:00 EDT, 100 mL/hr, Infuse over 30 minute(s), Pharmacy to dose polyethylene glycol 3350 17 gram packet: 17 gm = 1 EA, Powder-Recon, Oral, Daily PRN Constipation, Routine, Start date 07/12/22 16:23:00 EDT, 07/12/22 16:23:00 EDT vancomycin IV PHARMACY TO DOSE: PHARMACY TO DOSE, Injection, IV, As Directed, Routine, Start date 07/12/22 15:58:00 EDT Prescriptions Prescribed Keflex 500 mg Cap: 500 mg = 1 cap(s), Oral, q12hr, # 20 cap(s), Refills(s) 0, Pharmacy: [facility]/pharmacy #[id number], 178, cm, 07/09/22 17:32:00 EDT, Height/Length Dosing, 92, kg, 07/09/22 17:32:00 EDT, Weight Dosing Documented Medications Documented Aranesp 25 mcg/0.42 mL Injection: Refills(s) 0 Celebrate Multivitamin: See Instructions, Refill(s) 0 Humalog KwikPen: See Instructions, sliding scale tidhs, Refills(s) 0 Novolin 70/30: See Instructions, Refill(s) 0, 30 units in am, 14 units bedtime, Blood glucose Novolin R: Refills(s) 0 Synthroid 100 mcg Tab: 100 microgram = 1 tab(s), Oral, Daily, Refills(s) (more content not included)... [facility] Comment on above: Result Comment: Elec tronically Signed By: Aaron FISH, Cristino\.br\Date and Time Signed: 07/13/22 14:44 EDT Consultation Note Patient: LALY MURPHY Age: 66 years Sex: Male : 1955 Associated Diagnoses: None Author: Alfredo Acosta M.D Chief Complaint 07/12/2022 14:28 EDT r/o infection of fistula 07/12/2022 13:24 EDT Inpatient F/U History of Present Illness -Patient presented to [facility] as a direct admit at the request of Dr. Alarcon vascular services secondary to left AV fistula infection status post thrombosed left brachiocephalic AV fistula. Left permacath HD catheter intact. -Patient states that he has had ongoing left upper extremity swelling and redness to the AV fistula site x3 weeks, states that he was placed on Keflex on 07/09 in addition to IV antibiotic of unknown name on HD days without improvement. Patient states that he has noted creamy white to yellow purulent drainage from the both access sites. Currently on Vancomycin and Zosyn. Pain is present in LUE. I'm consulted to help guide abx choice. Review of Systems Constitutional: Negative except as documented in history of present illness. Health Status Allergies: Allergic Reactions (Selected) Severity Not Documented Brilinta- Unknown. Coban Bandage- Rash. Current medications: Medications (13) Active Scheduled: (9) aspirin 81 mg Chew Tab [F] 81 mg 1 tab(s), Chewed, Daily atorvastatin 40 mg Tab [F] 40 mg 1 tab(s), Oral, Daily heparin 5,000 units/mL Inj [F] 5,000 unit(s) 1 mL, SubCutaneous, BID insulin (Humulin 70/30)isophane-insulin regular human recombinant 70 units-30 units/mL SubQ Inj [F 14 unit(s) 0.14 mL, SubCutaneous, Bedtime insulin lispro (Humalog) 100 units/mL SubQ Inj [F] 0-10 Units, SubCutaneous, QIDACHS levothyroxine 100 mcg (0.1 mg) Tab [F] 100 mcg 1 tab(s), Oral, Daily multiple vitamin with minerals [F] 1 tab(s), Oral, Daily piperacillin-tazobactam 4 g-0.5 g + Sodium Chloride 0.9% Minibag 50 mL 4.5 gm 1 EA, IV Piggyback, q12hr vancomycin PHARMACY TO DOSE [F] PHARMACY TO DOSE, IV, As Directed Continuous: (0) PRN: (4) acetaminophen 325 mg Tab UD [F] 650 mg 2 tab(s), Oral, q6hr dextrose 50% IV Nirmala 50 mL Abboject [F] 50 mL, IV Push, Once ondansetron 2 mg/mL Inj [F] 4 mg 2 mL, IV Push, q6hr polyethylene glycol 3350 17 gram [F] 17 gm 1 EA, Oral, Daily Problem list: All Problems Acute non-ST segment elevation myocardial infarction / SNOMED CT 1201528391 / Confirmed Acute systolic heart failure / SNOMED CT 1241836779 / Confirmed At risk for falls / SNOMED CT 834138313 / Possible Problem added when Risk for Falls Careplan was initiated. Coronary arteriosclerosis / SNOMED CT 14411624 / Confirmed Coronary artery disease / SNOMED CT 54377498 / Confirmed Diabetes mellitus / SNOMED CT 677278304 / Confirmed Diabetes / SNOMED CT 216519683 / Confirmed Dyspnea / SNOMED CT 895218651 / Confirmed Dysuria / SNOMED CT 90163418 / Confirmed Edema of lower extremity / SNOMED CT 153183182 / Confirmed Electrocardiogram abnormal / SNOMED CT 2086979018 / Confirmed ESRD (end stage renal disease) on dialysis / SNOMED CT 190200147 / Confirmed Essential hypertension / SNOMED CT 09151852 / Confirmed Fatigue / SNOMED CT 413369832 / Confirmed Hyperlipidemia / SNOMED CT 80239968 / Confirmed Hypertension / SNOMED CT 1192596573 / Confirmed Hypothyroid / SNOMED CT 78151733 / Confirmed Impaired skin integrity / SNOMED CT 09293685 / Confirmed Problem added on documentation of skin impairments. Left ventricular hypertrophy / SNOMED CT 94065012 / Confirmed Neuropathy due to diabetes mellitus / SNOMED CT 8758876690 / Confirmed Pseudophakia / SNOMED CT 373593908 / Confirmed Apnea, sleep / SNOMED CT 107328558 / Confirmed Thrombophlebitis / SNOMED CT 202076585 / Confirmed Venous insufficiency of leg / SNOMED CT 319373953 / Confirmed Venous stasis ulcer of leg / SNOMED CT 6776120089 / Confirmed Histories Past Medical History: Resolved Anemia (827311985): Onset on 05/06/2018 at 62 years. Resolved. Congestive heart failure (84674912): Onset on 05/06/2018 at 62 years. Resolved. Hyperlipidemia (30215164): Onset on 05/06/2018 at 62 years. Resolved. Palpitations (280489289): Onset on 05/06/2018 at 62 years. Resolved. Thrombosis of superficial vein of lower limb (6814882074): Onset on 05/06/2018 at 62 years. Resolved. Family History: Diabetes mellitus type 2 Mother Heart failure Mother Primary malignant neoplasm of prostate Father Acute myocardial infarction Mother Hyperlipidemia Mother Procedure history: Insertion of hemodialysis catheter (5750947397) on 07/02/2022 at 66 Years. Fistulogram with contrast (4155766390) on 03/15/2022 at 66 Years. Fluoroscopic fistulogram with contrast (6555032115) on 11/02/2021 at 65 Years. Fistulogram with contrast (0234975107) on 08/04/2020 at 64 Years. Removal of catheter (049991872) on 07/07/2020 at 64 Years. 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 Comments: 06/16/2020 14:27 E (more content not included)... [facility] Comment on above: Result Comment: Elec tronically Signed By: Alfredo Acosta M.D\Date and Time Signed: 07/13/22 09:50 EDT Interdisciplinary Note - Paresh e Manageron 07-13-2022 Interdisciplinary Note - Independent Beauty Consultant Pt is awake and alert in bed previously rounded with Nathalie CARRERA. Pt is aware of plan to stay in hospital until at least Saturday to see Vascular. Pt is from home with and she will transport at [place]. Pt is currentwith HD at [place] on Sat, Sat, Sat at noon. Inpateint status reviewed, Medicare rights reviewed, form signed and original provided to pt. . PCP verified and insurance information reviewed and DME discussed. Contact information provided and white board updated. [facility] Comment on above: Result Comment: Elec tronically Signed By: Obie TORREZ, Alaina\.asael\Date and Time Signed: 07/13/22 11:59 EDT Interdisciplinary Note - Bang wood 07-13-2022 Interdisciplinary Note - Nursing Reason for consult: Diabetic ulcer, infection Left AVF Reviewed medical & surgical history: Yes, medical, surgical history, labs, vital signs, and medications reviewed. Lower extremity assessment: Pulses: PPP bilat Color: hemosiderin stained Temperature: warm Edema: none Capillary refill: brisk Pain: denies Nutrition: 2000 calorie diet Wound #1 Type: Diabetic foot ulcer Location: right heel Size: 1.5cm x 0.9cm x 0.1cm Granulation/Slough/Eschar: 100% granulation Periwound: intact Drainage: moderate seropurulent Wound #2 Type: Infection Location: left upper arm Size: 0.5cm x 0.5cm x hypergranulated Granulation/Slough/Eschar: 100% hypergranulated Periwound: intact Drainage: none Wound #3 Type: Infection Location: left upper arm, distal Size: 0.7cm x 0.7cm x hypergranulated Granulation/Slough/Eschar: 100% hypergranulated Periwound: intact Drainage: none Recommendations: Cleanse left upper arm ulcers with saline, swab with betadine, cover with gauze, roll gauze and paper tape. Change daily. Right heel, Cleanse with Saline, apply Aquacel AG, gauze, roll gauze, and paper tape. Change every other day. Education: Provided regarding dressing care, offloading, nutrition and s/sx infection. Patient verbalized understanding. Report: Sarah TORREZ, Nathalie CARRERA Follow up: Yes [facility] Lactic Acidon 07-13-2022 Lactate [Mass/Vol] 2.3 mmol/L High 0.5-2.2 [facility] Comment on above: Order Comment: Order added by EKS Rule. (FT_LACTIC_ACID_REFLEX) Adds reflex Lactic Acid 4 hours after initial if result is greater than or equal to 2.0. Performed By: #### 2 [id number] ####[facility] [id number] [place] [address] Lactate [Mass/Vol] 5.9 mmol/L Abnormal 0.5-2.2 [facility] Comment on above: Result Comment: Crit ical Result verified by repeat analysis\Critical Result S_LAC:5.9Called to STEVE ESTRELLA AT 3S by NEDA MACHUCA And Read Back For Confirmation at: 07/13/2022 12:52:22 Performed By: #### 1 [id number] #### [facility] [address] [place] [address] Monitor Recordon 07-13-2022 Monitor Record [id number]#1.00CD:127 [facility] Monitor Record [id number]#1.00CD:127 [facility] Monitor Record [id number]#1.00CD:127 [facility] Progress Note - Pharmacyon 0 07-13-2022 Progress Note - Pharmacy Vancomycin Pharmacy to Dose Consult Note Indication: Skin and Skin Structure Infection Goal Range: Pre-HD Level: 15-20 RECOMMENDATIONS/ PLAN: Pharmacy consulted for vancomycin dosing for SETH MURPHY, a 66 Years old, Male who is being treated with vancomycin for cellulitis. 1. Vancomycin therapy is still active, today is day 2 of treatment. Patient received Vancomycin 2000 mg IV once. 2. The most recent vancomycin level was 50 mcg/mL drawn at 0539 on 07/13/22. This is a Pre-HD level on the 2 day of therapy. 3. The vancomycin level is not therapeutic, the following dosing adjustments have been made:Hold dose today then check a Pre-HD level on 07/16/22. 4. The next level is scheduled for AM labs on 07/16/22. 5. A MRSA Nasal Swab is not appropriate at this time. We will follow patient renal function, vancomycin levels and doses with you during the course of therapy. Additional recommendations will appear in follow up notes. If you have any questions, please contact the pharmacy at [phone]. Age: 66 Years Allergies: Brilinta; Coban Bandage Weight:Last Documented Weight and Type of Scale Used Last Documented Weight Weight Measured: 96.8 kg (07/13/22 06:47:00) Type of Scale Used Weight Measured Type of Scale: Bed Scale (digital) (07/12/22 14:49:00) Height: Last Documented Height/Length Last Documented Height/Length Height/Length Measured: 180.34 cm (07/12/22 14:49:00) CrCl: 8 mL/min Labs: WBC: 8.1 E9/L (07/12/22 16:34:00) RBC: 3.2 E12/L Low (07/12/22 16:34:00) HGB: 9.5 gm/dL Low (07/12/22 16:34:00) Hct: 28.7 % Low (07/12/22 16:34:00) MCV: 89.5 fL (07/12/22 16:34:00) MCH: 29.6 pg (07/12/22 16:34:00) MCHC: 33.1 gm/dL (07/12/22 16:34:00) RDW: 16.8 % High (07/12/22 16:34:00) Platelet: 284 E9/L (07/12/22 16:34:00) MPV: 7.4 fL (07/12/22 16:34:00) Neutro Auto: 73 % (07/12/22 16:34:00) Lymph Auto: 11 % Low (07/12/22 16:34:00) Stokes Auto: 13.7 % (07/12/22 16:34:00) Eos Auto: 1.5 % (07/12/22 16:34:00) Basophil Auto: 0.8 % (07/12/22 16:34:00) Neutro Absolute: 5.9 E9/L (07/12/22 16:34:00) Lymph Absolute: 0.9 E9/L Low (07/12/22 16:34:00) Stokes Absolute: 1.1 E9/L High (07/12/22 16:34:00) Eos Absolute: 0.1 E9/L (07/12/22 16:34:00) Basophil Absolute: 0.1 E9/L (07/12/22 16:34:00) Glucose Lvl: 266 mg/dL High (07/13/22 05:39:00) BUN: 31 mg/dL High (07/13/22 05:39:00) Creatinine: 9.3 mg/dL Critical (07/13/22 05:39:00) eGFR: 6 mL/min/1.73 m2 Low (07/13/22 05:39:00) BUN/Creat Ratio: 3 Low (07/13/22 05:39:00) Sodium Lvl: 136 mmol/L (07/13/22 05:39:00) Potassium Lvl: 3.5 mmol/L (07/13/22 05:39:00) Chloride: 101 mmol/L (07/13/22 05:39:00) CO2: 23 mmol/L (07/13/22 05:39:00) AGAP: 16 mEq/L (07/13/22 05:39:00) Calcium Lvl: 8.9 mg/dL (07/13/22 05:39:00) Vanco Tr: 50 mcg/mL Critical (07/13/22 05:39:00) Glucose Cap: 287 mg/dL High (07/12/22 20:34:00) POC Device SN: [id number] (07/12/22 20:34:00) POC User ID: [id number] (07/12/22 20:34:00) POC Username: URBANO MOJICA (07/12/22 20:34:00) [facility] Progress Note-Nurseon 2022 Progress Note-Nurse Tx tolerated well, hypotension at beginning of Tx, no other significant issues. 0L removed Pre wt 94 Post wt 95 [facility] Progress Note-Physicianon Progress Note-Physician Assessment/Plan 1. Sepsis (A41.9: Sepsis, unspecified organism) / AVF infection/cellulitis - likely present on admission - labs had yet to manifest fulminant sepsis -HR: 111, Mtemp: 38.5, WBC: 23.8, LA: 5.9, + source -Aggressive IVF 500ml bolus x 1 (2/2 ESRD) d/w Dr. Rodriguez, -IV Atb as below -Monitor closely for fl. overload -See below 2. Cellulitis of arm (L03.119: Cellulitis of unspecified part of limb) LUE / open wounds - pt. failed outpt. keflex -IV vanco/zosyn - 07/12 -Consult ID: Broadly covered with appropriate Vanco Zosyn, new ultrasound pending, cultures pending, with odor and drainage surgeries planned for Saturday, follow Cultures and adjust if needed -Wound cx - pending -Bl. cx - pending -Pain mgt., supportive care -Elevate, outline area 3. AV fistula infection (T82.7XXA: Infection and inflammatory reaction due to other cardiac and vascular devices, implants and grafts, initial encounter) Consult vascular: (Dr. Alarcon aware of pt., as he was seen in clinic today) - plan for possible OR on 07/16 - will need NPO order placed on 07/15 -LUE DUS: pending -See above 4. Coronary artery disease (I25.10: Atherosclerotic heart disease of [place] coronary artery without angina pectoris) -Aspirin, atorvastatin, 5. Chronic systolic heart failure (I50.22: Chronic systolic (congestive) heart failure) Stable -Fluid mgt. per HD 6. Insulin dependent type 2 diabetes mellitus (E11.9: Type 2 diabetes mellitus without complications) Accuchecks AC/HS w/ SSI prn -Home regimen: Insulin 70/30 14u HS -Increase insulin 70/30 to 14 u HS - uptitrate as tolerated -Hypoglycemic protocol 7. Peripheral neuropathy (G62.9: Polyneuropathy, unspecified) -Tylenol prn 8. ESRD on dialysis (N18.6: End stage renal disease) On HD M/W/F at [facility] -Consult nephro - pending -BP is soft today - typically takes midodrine 5mg on HD only for now will increase to daily dosing until infection improves -Discussed labs w/ HD nurse Margarito who will review labs with Dr. Walker for HD options today 9. Hypothyroidism (E03.9: Hypothyroidism, unspecified) -Levothyroxine 10. Venous insufficiency of both lower extremities (I87.2: Venous insufficiency (chronic) (peripheral)) -Aspirin, atorvastatin 11. Venous stasis ulcer (I83.009: Varicose veins of unspecified lower extremity with ulcer of unspecified site) Chronic - POA -Consult wound care: Left aVF swab with Betadine and cover with gauze and Kerlix daily, right heel, Aquacel Ag every other day 12. On deep vein thrombosis (DVT) prophylaxis (Z79.899: Other intermodal dispatcher (current) drug therapy) -Heparin sq with early ambulation Orders: acetaminophen, 650 mg = 2 tab(s), Tab, Oral, q6hr PRN Pain, Routine, Start date 07/12/22 15:58:00 EDT, 07/12/22 15:58:00 EDT aspirin, 81 mg = 1 tab(s), Tab-Chew, Chewed, Daily, Routine, Start date 07/13/22 9:00:00 EDT, 07/12/22 16:22:00 EDT atorvastatin, 40 mg = 1 tab(s), Tab, Oral, Daily, Routine, Start date 07/13/22 9:00:00 EDT, 07/12/22 16:22:00 EDT glucose, 50 mL, Soln-IV, IV Push, Once PRN Blood glucose, Routine, Start date 07/12/22 16:48:00 EDT heparin, 5,000 unit(s) = 1 mL, Injection, SubCutaneous, BID for 30 day(s), Stop date 08/11/22 20:59:00 EDT, Routine, Start date 07/12/22 21:00:00 EDT, 07/12/22 16:46:00 EDT insulin isophane-insulin regular, 14 unit(s) = 0.14 mL, Injection-Insulin, SubCutaneous, Bedtime, Routine, Start date 07/13/22 21:00:00 EDT insulin lispro, 0-10 Units, Injection-Insulin, SubCutaneous, QIDACHS, Routine, Start date 07/12/22 21:00:00 EDT levothyroxine, 100 mcg = 1 tab(s), Tab, Oral, Daily, Routine, Start date 07/13/22 6:30:00 EDT, 07/12/22 16:22:00 EDT midodrine, 5 mg = 1 tab(s), Tab, Oral, As Directed, Routine, Start date 07/12/22 16:40:00 EDT, 07/12/22 16:40:00 EDT midodrine, 5 mg = 1 tab(s), Tab, Oral, Daily, Routine, Start date 07/14/22 9:00:00 EDT, 07/13/22 13:22:00 EDT multivitamin with minerals, 1 tab(s), Tab, Oral, Daily, Routine, Start date 07/13/22 9:00:00 EDT ondansetron, 4 mg = 2 mL, Injection, IV Push, q6hr PRN Nausea, Routine, Start date 07/12/22 15:58:00 EDT, 07/12/22 15:58:00 EDT piperacillin-tazobactam + Sodium Chloride 0.9% intravenous solution 50 mL, 4.5 gm = 1 EA, Injection, IV Piggyback, q12hr, Routine, Start date 07/12/22 18:00:00 EDT, 100 mL/hr, Infuse over 30 minute(s), Pharmacy to dose polyethylene glycol 3350, 17 gm = 1 EA, Powder-Recon, Oral, Daily PRN Constipation, Routine, Start date 07/12/22 16:23:00 EDT, 07/12/22 16:23:00 EDT Sodium Chloride 0.9% intravenous solution 500 mL, 500 mL, IV, 500 mL/hr, for 1 dose(s), Stop date 07/13/22 14:28:00 EDT, Routine, Start date 07/13/22 13:29:00 EDT, 1 hour(s), Total volume (mL): 500, 96.8 kg, 2.2, m2 vancomycin, PHARMACY TO DOSE, Injection, IV, As Directed, Routine, Start date 07/12/22 15:58:00 EDT vancomycin + Generic Diluent 400 mL, 2,000 mg = 400 mL, Soln-IV, IV Piggyback, Once, Stop date 07/12/22 16:30:00 EDT, Start date (more content not included)... [facility] Comment on above: Result Comment: Elec tronically Signed By: Nathalie HAAS\.br\Date and Time Signed: 07/13/22 13:50 EDT\.br\Electronically Co-Signed By: Nathalie HAAS\.br\Date and Time Co-Signed: 07/13/22 13:56 EDT\.br\Electronically Co-Signed By: Fuentes Rodriguez MD\.br\Date and Time Co-Signed: 07/13/22 15:20 EDT US Extremity Non-Vascular Li mited Lefton 07-13-2022 US Extremity Non-Vascular Limited Left Exam Date/Time: 07/12/2022 20:36 EDT Reason for Exam: Cellulitis Report IMPRESSION: APPARENTLY PROGRESSIVE THROMBOSIS AND SURROUNDING SOFT TISSUE EDEMA/HYPEREMIA OF A LEFT UPPER EXTREMITY AV FISTULA FROM 07/09/2022. NO SURROUNDING ORGANIZED SOFT TISSUE FLUID COLLECTION. EXAM: US Extremity Non-Vascular Limited Left DATE: 07/12/2022 CLINICAL HISTORY: Cellulitis. COMPARISON: 07/09/2022 TECHNIQUE: Grayscale and color Doppler ultrasound was performed of a left upper extremity fistula, with a regional survey. FINDINGS: Ill-defined soft tissue edema increased vascularity is present around the thrombosed left upper extremity AV fistula, which appear more extensive when compared to 07/09/2022. There is no surrounding organized soft tissue fluid collection. Ordering Provider: Nathalie PHILLIPS FINAL REPORT Dictated: 07/13/2022 2:36 pm Nura Regalado MD Signed (Electronic Signature): 07/13/2022 2:36 pm Signed by: Nura Regalado MD Transcribed by: JASPREET Technologist: EVARISTO [facility] Vanco Troughon 07-13-2022 VANCOMYCIN 50 microgram/mL Abnormal 10-20 [facility] Comment on above: Result Comment: Crit ical Result verified by repeat analysis\Critical Result S_VANC_T:50.0 Called to MARYURI MCKEON AT 3S by NEDA MACHUCA And Read Back For Confirmation at: 07/13/2022 06:49:48 Performed By: #### 2 [id number] #### [facility] [address] [place] [address] WBCon 07-13-2022 WBC corrected for nucl RBC Auto (Bld) [#/Vol] 23.8 E9/L High 4.0-11.0 [facility] Comment on above: Performed By: #### 1 [id number] #### [facility] [address] [place] [address] XR Chest 2 Viewson 3 XR Chest 2 Views Exam Date/Time: 07/13/2022 11:03 EDT Reason for Exam: P.A.T. Report IMPRESSION: CARDIOMEGALY. CHRONIC FINDINGS. CLINICAL HISTORY: P.A.T.. COMPARISON: 07/29/2019. COMMENT: There is a dual lumen central venous catheter on the left, with the tip in the distal superior vena cava. There is a distal left subclavian endovascular stent. The heart is enlarged. The mediastinum is unremarkable. There is chronic elevation of the left diaphragm. There are streaky and bandlike densities at both lung bases, that may be due to atelectasis or fibrosis. No consolidated airspace opacification is noted. Minimal pleural effusion is suspected. There are old rib fractures on the right. Ordering Provider: Gino Feliz FINAL REPORT Dictated: 07/13/2022 2:03 pm Seth Berger M.D. Signed (Electronic Signature): 07/13/2022 2:03 pm Signed by: Seth Berger M.D. Transcribed by: JASPREET Technologist: AMARILYS Technical Comments Radiation Dose: Ka,r in mGy = na DAP = na Normal [facility] eGFRon 07-13-2022 GFR/1.73 sq M.predicted among non-blacks MDRD (S/P/Bld) [Vol rate/Area] 6 mL/min/1.73 m2 Low >=59 [facility] Comment on above: Order Comment: Order added by Discern Expert. Result Comment: Painter Maintenance jm kidney disease could be indicated at eGFR's of less than 60 mL/min/1.73m2. Kidney failure is indicated at less than 15 mL/min/1.73m2. Performed By: #### 2 [id number], [id number], [id number] #### [facility] [address] [place] [address] 42495 Auto Diffon 07-12-2022 Basophils/100 WBC (Bld) 0.8 % Normal 0.0-2.0 [facility] Comment on above: Order Comment: Order Added by Discern Expert. Performed By: #### 1 [id number], [id number], 4371024, [id number] #### [facility] [address] [place] [address] 07646 Basophils/Leukocytes Auto (Bld) [Pure # fraction] 0.1 E9/L Normal 0.0-0.2 [facility] Comment on above: Order Comment: Order Added by Discern Expert. Performed By: #### 1 [id number], 2903113, 1804743, 2308497 #### [facility] [address] [place] [address] 24834 Eosinophils/100 WBC (Bld) 1.5 % Normal 0.0-8.0 [facility] Comment on above: Order Comment: Order Added by Discern Expert. Performed By: #### 1 [id number], 0094380, 8321528, 0819050 #### [facility] [address] [place] [address] 18830 Eosinophils/Leukocytes Auto (Bld) [Pure # fraction] 0.1 E9/L Normal 0.0-0.5 [facility] Comment on above: Order Comment: Order Added by Discern Expert. Performed By: #### 1 7366963, 9959573, 6825380, 6333363 #### [facility] [address] [place] [address] 09596 Lymphocytes/100 WBC (Bld) 11.0 % Low 14.0-50.0 [facility] Comment on above: Order Comment: Order Added by Discern Expert. Performed By: #### 1 [id number], 0020931, 6931194, 3238853 #### [facility] [address] [place] [address] 71547 Lymphocytes/Leukocytes Auto (Bld) [Pure # fraction] 0.9 E9/L Low 1.0-4.0 [facility] Comment on above: Order Comment: Order Added by Discern Expert. Performed By: #### 1 [id number], 2601728, 5862211, 2848996 #### [facility] [address] [place] [address] 93604 Monocytes/100 WBC (Bld) 13.7 % Normal 4.0-14.0 [facility] Comment on above: Order Comment: Order Added by Cayla Expert. Performed By: #### 1 [id number], 2582559, 4451977, 1707775 #### [facility] [address] [place] [address] 92231 Monocytes/Leukocytes Auto (Bld) [Pure # fraction] 1.1 E9/L High 0.2-1.0 [facility] Comment on above: Order Comment: Order Added by Cayla Expert. Performed By: #### 1 [id number], 0618961, 4522318, 3757141 #### [facility] [address] [place] [address] 73120 Neutrophils/100 WBC (Bld) 73.0 % Normal 36.0-75.0 [facility] Comment on above: Order Comment: Order Added by Cayla Expert. Performed By: #### 1 [id number], 5034306, 6025112, 0024523 #### [facility] [address] [place] [address] 73668 Neutrophils/Leukocytes Auto (Bld) [Pure # fraction] 5.9 E9/L Normal 2.0-7.5 [facility] Comment on above: Order Comment: Order Added by Cayla Expert. Performed By: #### 1 5386739, 4398130, 4016068, 1066178 #### [facility] [address] [place] [address] 46144 BMPon 07-12-2022 Creatinine [Mass/Vol] 7.6 mg/dL Abnormal 0.5-1.3 [facility] Comment on above: Result Comment: Crit ical Result verified by previous result\Critical Result verified by repeat analysis\Critical Result S_CREA:7.60 Called to JOHANNE BUNCH AT 3N by NOEL ORNELAS And Read Back For Confirmation at: 07/12/2022 16:57:45 Performed By: #### 1 [id number], 4269369, 6728953, 3640718 #### [facility] [address] [place] [address] Urea nitrogen [Mass/Vol] 26 mg/dL High 5-21 [facility] Comment on above: Performed By: #### 1 9797663, 9837154, 2334179, 1198431 #### [facility] [address] [place] [address] Urea nitrogen/Creatinine [Mass ratio] 3 No Units Low 10-20 [facility] Comment on above: Performed By: #### 1 6090488, 7379377, 3986136, 0937674 #### [facility] [address] [place] [address] Anion gap [Moles/Vol] 15 mmol/L Normal 6-16 [facility] Comment on above: Performed By: #### 1 4574199, 1228809, 9455978, 5714129 #### [facility] [address] [place] [address] Calcium [Mass/Vol] 9.2 mg/dL Normal 8.9-11.1 [facility] Comment on above: Performed By: #### 1 3999910, 3058021, 6183473, 5735719 #### [facility] [address] [place] [address] Chloride [Moles/Vol] 98 mmol/L Low 101-111 [facility] Comment on above: Performed By: #### 1 9068078, 9709615, 6469172, 2405914 #### [facility] [address] [place] [address] CO2 [Moles/Vol] 25 mmol/L Normal 21-31 [facility] Comment on above: Performed By: #### 1 5099946, 4804011, 2085297, 6755629 #### [facility] [address] [place] [address] Glucose [Mass/Vol] 203 mg/dL High 55-199 [facility] Comment on above: Result Comment: If t his glucose result represents a fasting glucose, interpretation should refer to the following reference range: 55-99 mg/dL Performed By: #### 1 8670907, 0038445, 6449936, 0436271 #### [facility] [address] [place] [address] Potassium [Moles/Vol] 4.2 mmol/L Normal 3.5-5.3 [facility] Comment on above: Performed By: #### 1 7798553, 1961887, 5879420, 4694466 #### [facility] [address] [place] [address] Sodium [Moles/Vol] 134 mmol/L Low 135-145 [facility] Comment on above: Performed By: #### 1 6579920, 5628138, 9225978, 1245157 #### [facility] [address] [place] [address] CBC w/ Auto Diffon 3 Erythrocyte distribution width (RBC) [Ratio] 16.8 % High 10.9-14.2 [facility] Comment on above: Performed By: #### 1 7911789, 3647312, 8759338, 4331588 #### [facility] [address] [place] [address] Hematocrit (Bld) [Volume fraction] 28.7 % Low 37.7-49.0 [facility] Comment on above: Performed By: #### 1 0002236, 3446298, 7040686, 9969004 #### [facility] [address] [place] [address] Hemoglobin (Bld) [Mass/Vol] 9.5 g/dL Low 13.5-17.5 [facility] Comment on above: Performed By: #### 1 7840564, 9791561, 1703661, 8930447 #### [facility] [address] [place] [address] MCH (RBC) [Entitic mass] 29.6 pg Normal 27.0-34.0 [facility] Comment on above: Performed By: #### 1 0924521, 4956838, 8406987, 3262846 #### [facility] [address] [place] [address] MCHC (RBC) [Mass/Vol] 33.1 g/dL Normal 31.4-36.0 [facility] Comment on above: Performed By: #### 1 6211800, 8566942, 5636645, 5771111 #### [facility] [address] [place] [address] MCV (RBC) [Entitic vol] 89.5 fL Normal 80.0-100.0 [facility] Comment on above: Performed By: #### 1 0916680, 9617947, 6315204, 4456811 #### [facility] [address] [place] [address] 26428 Platelet mean volume (Bld) [Entitic vol] 7.4 fL Normal 6.4-10.8 [facility] Comment on above: Performed By: #### 1 2025343, 4799389, 8140835, 2432708 #### [facility] [address] [place] [address]5004 Platelets (Bld) [#/Vol] 284.0 E9/L Normal 150.0-500. 0 [facility] Comment on above: Performed By: #### 1 4050627, 1037709, 7070224, 9705613 #### [facility] [address] [place] [address] 46304 RBC (Bld) [#/Vol] 3.2 E12/L Low 4.3-5.9 [facility] Comment on above: Performed By: #### 1 9355307, 5106151, 1260943, 5367521 #### [facility] [address] [place] [address] 46135 WBC corrected for nucl RBC Auto (Bld) [#/Vol] 8.1 E9/L Normal 4.0-11.0 [facility] Comment on above: Performed By: #### 1 0793261, 8002292, 5549935, 8884675 #### [facility] [address] [place] [address] Capillary Glucose POCon Glucose [Mass/Vol] 287 mg/dL High 55-99 [facility] Comment on above: Result Comment: Ambrocio vargas RN/ Performed By: #### 1 4239505, 0503290, 1827792, 4308651 #### [facility] [address] [place] [address] Glucose [Mass/Vol] 191 mg/dL High 55-99 [facility] Comment on above: Result Comment: Ambrocio ELIAS Performed By: #### 1 5302259, 1303887, 3225116, 9030077 #### [facility] [address] [place] [address] Consent for Treatmenton Consent for Treatment [id number]:127 Normal [facility] Consent for Treatment [id number]:127 Normal [facility] Heart and Vascular Office/Cl inic Noteon 07-12-2022 Heart and Vascular Office/Clinic Note Chief Complaint Inpatient F/U History of Present Illness This is a 66-year-old gentleman with history of thrombosed left brachiocephalic AV fistula. He has a permacath for dialysis. He has cellulitis in the area over the fistula. There are some purulent drainage at the access site where needle was used to access the fistula. He is on antibiotics. I discussed with him admission for IV antibiotics with possible debridement. The procedure risk benefits and alternatives were explained. Review of Systems PHQ Score Initial Depression Screen Score: 0 Constitutional: no fever, no chills, no sweats, no weakness Skin: no Jaundice, no rash, no lesions, nopetechiae ENMT: no ear pain, no sore throat, no congestion, no hoarseness Respiratory: no shortness of breath, no cough, no orthopnea, no wheezing Cardiovascular: no chest pain, no palpitations, no edema Gastrointestinal: no nausea, no vomiting, no diarrhea, no GI bleeding Genitourinary: no dysuria, no hematuria, no discharge, no pain Musculoskeletal: no back pain, no trauma Neurologic: no headache, no dizziness, no numbness, no weakness Psychiatric: no sleeping problems, no irritability, no mood swings/depression. Heme/Lymph: no bleeding tendency, no bruising tendency, no petechiae, no swollen nodes Allergy/Immunologic: no seasonal allergies, no food allergies, no recurrent infections, no impaired immunity Additional ROS info: Except as noted in the above Review of Systems and in the History of Present Illness all other systems have been reviewed and are negative or noncontributory. Physical Exam Vitals & Measurements HR: 94(Peripheral) BP: 94/62 SpO2: 97% HT: 70 in HT: 178 cm WT: 93.9 kg WT: 206.58 lb BMI: 29.64 General: alert, no acute distress Skin: warm, dry Head: no trauma, normocephalic Neck: Trachea midline, no adenopathy, no tenderness Eye: normal conjunctiva, sclera clear Cardiovascular: regular rate and rhythm, normal peripheral perfusion Respiratory: Lungs CTA, respirations non labored Chest wall: no deformity. Gastrointestinal: soft, non distended, no tenderness, no guarding. Back: No tenderness, Normal ROM, Normal alignment. Extremities: no edema,no deformity, no trauma Neurological: oriented x 4, LOC appropriate for age, motor strength equal & normal bilaterally, sensation equal & normal bilaterally, speech normal Psychiatric: cooperative, affect appropriate for age, normal judgement, normal psychiatric thoughts. Assessment/Plan 1. ESRD (end stage renal disease) on dialysis (N18.6: End stage renal disease) This is a 66-year-old gentleman with history of thrombosed left brachiocephalic AV fistula. He has a permacath for dialysis. He has cellulitis in the area over the fistula. There are some purulent drainage at the access site where needle was used to access the fistula. He is on antibiotics. I discussed with him admission for IV antibiotics with possible debridement. The procedure risk benefits and alternatives were explained. Dependence on renal dialysis (Z99.2: Dependence on renal dialysis) Follow-up No qualifying data available Problem List/Past Medical History Ongoing Acute non-ST segment elevation myocardial infarction Acute systolic heart failure Coronary arteriosclerosis Coronary artery disease Diabetes Diabetes mellitus Dyspnea Dysuria Edema of lower extremity Electrocardiogram abnormal ESRD (end stage renal disease) on dialysis Essential hypertension Fatigue Hyperlipidemia Hypertension Hypothyroid Left ventricular hypertrophy Neuropathy due to diabetes mellitus Pseudophakia Thrombophlebitis Venous insufficiency of leg Venous stasis ulcer of leg Historical Anemia Congestive heart failure Hyperlipidemia Palpitations Thrombosis of superficial vein of lower limb Procedure/Surgical History Insertion of hemodialysis catheter (07/02/2022), Fistulogram with contrast (03/15/2022), Fluoroscopic fistulogram with contrast (11/02/2021), Fistulogram with contrast (08/04/2020), Removal of catheter (07/07/2020), MULTI SLIDE MACHINE TENDER (06/16/2020), AV - Creation of arteriovenous fistula (03/31/2020), AV fistula recirculation (08/06/2019), Abdominal hernia, Cholecystectomy, H/O: tracheostomy, Placement of stent in cardiac conduit. Medications Aranesp 25 mcg/0.42 mL Injection aspirin 81 mg Chew Tab, 81 mg= 1 tab(s), Chewed, Daily atorvastatin 40 mg Tab, 40 mg= 1 tab(s), Oral, Daily Celebrate Multivitamin, See Instructions doxazosin 1 mg oral tablet, 1 mg= 1 tab(s), Oral, Daily Humalog KwikPen, See Instructions hydrALAZINE 50 mg Tab, 50 mg= 1 tab(s), Oral, q8hr Keflex 500 mg Cap, 500 mg= 1 cap(s), Oral, q12hr midodrine 5 mg Tab Novolin 70/30, See Instructions Novolin R polyethylene glycol 3350, 17 gm, Oral, Daily, PRN Synthroid 100 mcg Tab, 100 mcg= 1 tab(s), Oral, Daily Vitamin B Complex oral capsule, 1 cap(s), Oral, Daily Allergies Brilinta (Unknown) Coban Bandage (Rash) Social History Alcohol (more content not included)... Normal [facility] Comment on above: Result Comment: Elec tronically Signed By: Dorian FISH, Greg Lopez\.br\Date and Time Signed: 07/12/22 13:58 EDT Progress Note - Pharmacyon 0 07-12-2022 Progress Note - Pharmacy Vancomycin Pharmacy to Dose Consult Note Indication: Skin and Skin Structure Infection Goal Range: Pre-HD level 15-20 RECOMMENDATIONS/PLAN: Pharmacy consulted for vancomycin dosing for SETH MURPHY, a 66 Years old, Male who is being treated for cellulitis. 1. VANCO STATUS: Vancomycin therapy is still active, today is day 1 of treatment. Dosing will be based on pre HD labs, received 2000mg loading dose upon admission 07/12. Receives dialysis MWF when outpatient. 2. VANCO LEVEL: No vancomycin level has been drawn for this dosing regimen. 3. DOSING RECS: _ 4. NEXT LEVEL: The next level is scheduled for 07/13 on with am labs. 5. MRSA NASAL SWAB? A MRSA nasal swab is not appropriate at this time. We will follow patient renal function, vancomycin levels, and doses with you during the course of therapy. Additional recommendations will appear in follow up notes. If you have any questions, please contact the pharmacy at extension [phone]. Age: 66 Years Allergies: ALLERGIES Weight: Last Documented Weight and Type of Scale Used Last Documented Weight Weight Measured: 93.5 kg (07/12/22 14:49:00) Type of Scale Used Weight Measured Type of Scale: Bed Scale (digital) (07/12/22 14:49:00) Height: Last Documented Height/Length Last Documented Height/Length Height/Length Measured: 180.34 cm (07/12/22 14:49:00) CrCl: 10.18 mL/min Labs: WBC: 8.1 E9/L (07/12/22 16:34:00) RBC: 3.2 E12/L Low (07/12/22 16:34:00) HGB: 9.5 gm/dL Low (07/12/22 16:34:00) Hct: 28.7 % Low (07/12/22 16:34:00) MCV: 89.5 fL (07/12/22 16:34:00) MCH: 29.6 pg (07/12/22 16:34:00) MCHC: 33.1 gm/dL (07/12/22 16:34:00) RDW: 16.8 % High (07/12/22 16:34:00) Platelet: 284 E9/L (07/12/22 16:34:00) MPV: 7.4 fL (07/12/22 16:34:00) Neutro Auto: 73 % (07/12/22 16:34:00) Lymph Auto: 11 % Low (07/12/22 16:34:00) Stokes Auto: 13.7 % (07/12/22 16:34:00) Eos Auto: 1.5 % (07/12/22 16:34:00) Basophil Auto: 0.8 % (07/12/22 16:34:00) Neutro Absolute: 5.9 E9/L (07/12/22 16:34:00) Lymph Absolute: 0.9 E9/L Low (07/12/22 16:34:00) Stokes Absolute: 1.1 E9/L High (07/12/22 16:34:00) Eos Absolute: 0.1 E9/L (07/12/22 16:34:00) Basophil Absolute: 0.1 E9/L (07/12/22 16:34:00) Glucose Lvl: 203 mg/dL High (07/12/22 16:34:00) BUN: 26 mg/dL High (07/12/22 16:34:00) Creatinine: 7.6 mg/dL Critical (07/12/22 16:34:00) eGFR: 7 mL/min/1.73 m2 Low (07/12/22 16:34:00) BUN/Creat Ratio: 3 Low (07/12/22 16:34:00) Sodium Lvl: 134 mmol/L Low (07/12/22 16:34:00) Potassium Lvl: 4.2 mmol/L (07/12/22:34:00) Chloride: 98 mmol/L Low (07/12/22 16:34:00) CO2: 25 mmol/L (07/12/22 16:34:00) AGAP: 15 mEq/L (07/12/22 16:34:00) Calcium Lvl: 9.2 mg/dL (07/12/22 16:34:00) Glucose Cap: 191 mg/dL High (07/12/22 16:44:00) POC Device SN: [id number] (07/12/22 16:44:00) POC User ID: [id number] (07/12/22 16:44:00) POC Username: MIKEY CUEVAS (07/12/22 16:44:00) Normal [facility] eGFRon 07-12-2022 GFR/1.73 sq M.predicted among non-blacks MDRD (S/P/Bld) [Vol rate/Area] 7 mL/min/1.73 m2 Low >=59 [facility] Comment on above: Order Comment: Order added by Discern Expert. Result Comment: Painter Maintenance jm kidney disease could be indicated at eGFR's of less than 60 mL/min/1.73m2. Kidney failure is indicated at less than 15 mL/min/1.73m2. Performed By: #### 1 [id number], [id number], 7832646, [id number] #### [facility] [address] [place] [address] ED Note-Physicianon 07-12-19 ED Note-Physician Basic Information Time Seen: Jose L WAITE, Zack Millan 07/09/2022 17:42 Chief Complaint L arm fistula issues for approx. 3 weeks. sent over after [facility] center spoke with Dr. Alarcon and referred here for US. temp. HD cath placed on 07/02. L arm has been intermittently bleeding as well. History of Present Illness A 66-year-old male reports emergency department with a chief complaint of left arm fistula issues have been going on for about 3 weeks now. States he was sent over after dialysis while he was at [facility]. Reports has been just constantly bleeding. He reports that the [place] dialysis center did speak with his vascular surgeon, Dr. Alarcon, and he did refer him here for ultrasound. Patient has been receiving his dialysis through a temporary hemodialysis catheter that was placed about a week ago. Reports that besides the bleeding, he has been doing fine. Denies any other complaints at this time. Reports he does take a baby aspirin as his only blood thinner. Review of Systems A 10 point review of systems is negative except as noted above. Medical and Surgical History: Reviewed and noted Social history: Lives at home Family History: Reviewed. Tobacco: Denies Physical Exam Vitals & Measurements T: 36.7 ?C(Oral) HR: 79(Monitored) RR: 11 BP: 98/60 SpO2: 96% HT: 178 cm WT: 92 kg BMI: 29.04 General: The patient appears well and in no apparent distress. Patient is resting comfortably on bed. Afebrile Skin: Warm, dry, no pallor noted. Dressing noted over the left ischial area of the left arm, with mild blood that is dried over this area. Once dressings are removed, no active bleeding is noted. Head: Normocephalic, atraumatic Neck: No JVD Eye: PERRLA, EOMI ENT: Moist mucus membranes Cardiovascular: Regular rate normal peripheral perfusion. Radial pulses +2 bilaterally Respiratory: No respiratory distress no accessory muscle use no obvious audible wheezing Chest Wall: no deformity Musculoskeletal: normal ROM, no deformity, no swelling GI: No obvious distention Neurological: A&O moves all extremities equal strength and symmetry Psychiatric: Cooperative and appropriate Medical Decision Making MEDICAL DECISION MAKING Number and Complexity of Problems Differential Diagnosis: [] [facility] Data External documents reviewed: [] My EKG interpretation: [] My CT interpretation: [] My X-ray interpretation: [] My Ultrasound interpretation: reviewed Decision rules/scores evaluated: [] Discussed with: [] Treatment and Disposition ED Course: A 66-year-old male reports to the emergency department with a chief complaint of left arm fistula issues. States that he was at his dialysis appointment today, oriented full dialysis, but has been bleeding out of his left fistula. He reports he is using a temporary HD catheter currently. Reports that the left one has a clot in it. States he is only on a baby aspirin. On physical exam, there is some erythema noted of the left arm, but no active bleeding is noted under the bandage. Based on his concerns, as well as his referral over from Dr. Alarcon, we did get an ultrasound of the left arm. This showed no evidence for DVT, just the thrombus within the fistula. I discussed this with the patient. I discussed this with Dr. Pollock, he stated that he is concerned about superficial thrombophlebitis. Due to this, we will start him on Keflex. Discussed follow-up with Dr. Alarcon. Discussed return precautions. Follow-up with your primary care provider in 3 to 5 days. If symptoms worsen, do not improve, or new symptoms arise please report back to emergency department for further evaluation. The patient was understanding and agreeable to plan moving forward. Shared decision making: [] Code status: [] Assessment/Plan Superficial thrombophlebitis (I80.9: Phlebitis and thrombophlebitis of unspecified site) Orders: cephalexin, 500 mg = 1 cap(s), Cap, Oral, Once, Stop date 07/09/22 18:57:00 EDT, STAT, Start date 07/09/22 18:57:00 EDT, 07/09/22 18:57:00 EDT cephalexin, 500 mg = 1 cap(s), Oral, q12hr, # 20 cap(s), Refills(s) 0, Pharmacy: [facility]/pharmacy #[id number], 178, cm, 07/09/22 17:32:00 EDT, Height/Length Dosing, 92, kg, 07/09/22 17:32:00 EDT, Weight Dosing US AV Fistula/Graft US UE Venous Duplex Left Medications Administered Given Keflex 500 mg Cap, 500 mg, Oral Disposition Plan Patient Discharge Condition stable Discharge Disposition to home Discharge Prescription List Prescriptions Keflex 500 mg Cap, 500 mg= 1 cap(s), Oral, q12hr Follow-up With When Contact Information Greg Alarcon In 3 days 07/12/2022 EDT [address] [place] [address]- Business (1) Additional Instructions: Follow-up with Dr. Alarcon for further evaluation of your fistula. Nav Hoy In 3 days 07/12/2022 EDT [address] [place] [address]- Business (1) Additional Instructions: Follow-up with your primary ca (more content not included)... Normal [facility] Comment on above: Result Comment: Elec tronically Signed By: Jose L WAITE, Zack Millan\.br\Date and Time Signed: 07/09/22 20:28 EDT\.br\Electronically Co-Signed By: Adam Weinberg M.D..br\Date and Time Co-Signed: 07/11/22 07:12 EDT US AV Fistula/[place] 2022 US AV Fistula/Graft Exam Date/Time: 07/09/2022 18:54 EDT Reason for Exam: Other (please specify) Report IMPRESSION: THROMBOSIS OF THE LEFT BRACHIOCEPHALIC FISTULA. CLINICAL HISTORY: Follow-up, thrombus previously noted within the fistula. COMPARISON: 06/29/2022. COMMENT: There is an arteriovenous fistula in the left arm that extends from the brachial artery to the cephalic vein. The left brachial artery proximal to the fistula is patent. Throughout the length of the left brachiocephalic fistula, no flow is demonstrated and there is internal echogenicity consistent with thrombus. Ordering Provider: Zack Campos FINAL REPORT Dictated: 07/10/2022 1:02 pm Seth Berger M.D. Signed (Electronic Signature): 07/10/2022 1:02 pm Signed by: Seth Berger M.D. Transcribed by: JASPREET Technologist: FRANSISCA Technical Comments Type of Fistula/Graft: brachiocephalic Laterality: Left. Normal [facility] US UE Venous Duplex Lefton 0 07-10-2022 US UE Venous Duplex Left Exam Date/Time: 07/09/2022 18:52 EDT Reason for Exam: Swelling Report IMPRESSION: NO SONOGRAPHIC EVIDENCE, DEEP OR SUPERFICIAL VEIN THROMBOSIS, LEFT UPPER EXTREMITY. CLINICAL HISTORY: Swelling FINDINGS: Color flow and augmentation bilateral subclavian veins. Compression, augmentation, color flow, left jugular vein, left axillary vein, proximal, mid, and distal left brachial vein, proximal and distal left basilic vein, proximal and distal left cephalic vein. Compression also identified left radial vein, and left pulmonary vein. Ordering Provider: Zack Capmos FINAL REPORT Dictated: 07/10/2022 9:05 am Tyler Dominguez MD Signed (Electronic Signature): 07/10/2022 9:05 am Signed by: Tyler Dominguez MD Transcribed by: JASPREET Technologist: FRANSISCA Normal [facility] Consent for Treatmenton 06-12 Consent for Treatment [id number]:127 Normal [facility] Discharge Instructionson Discharge Instructions [id number]:127 [facility] ED Clinical Summaryon 2022 ED Clinical Summary (Inserted Image. Dejah ble to display) [address] [address] ED Clinical Summary Person Information Name: SETH MURPHY/Abel Age: 66 Years : 1955 Sex: Male Language: Chilean PCP: Nav Alejo MD Marital Status: Visit Id: Visit Reason: Medical screening exam; Arm pain-swelling; ARM PAIN Speciality: Acuity: 3 Enc Type: Emergency Med Service: Emergency Arrival: 07/09/2022 17:21:55 Discharge: 07/09/2022 19:31:01 LOS: 000 02:10 Checkin: 07/09/2022 17:21:55 Checkout: 07/09/2022 19:31:01 Dispo Type: Home (Routine DC) EVENTS: Event Name Event Status Request Date/Time Start Date/Time Complete Date/Time Arrive Complete 07/09/2022 17:21:55 07/09/2022 17:21:55 07/09/2022 17:21:55 Document Home Meds Request 07/09/2022 17:21:55 Triage Complete 07/09/2022 17:21:55 07/09/2022 17:32:05 07/09/2022 17:32:05 Bed Assign Complete 07/09/2022 17:24:20 07/09/2022 17:24:20 07/09/2022 17:24:20 Dr Exam Complete 07/09/2022 17:24:20 07/09/2022 17:42:21 07/09/2022 17:42:21 RN Exam Complete 07/09/2022 17:24:20 07/09/2022 18:28:23 07/09/2022 18:28:23 Registration Complete 07/09/2022 17:25:25 07/09/2022 17:25:25 07/09/2022 17:25:25 Reg Complete Request 07/09/2022 17:25:25 Registration Complete 07/09/2022 17:42:21 07/09/2022 17:52:21 07/09/2022 17:52:21 Dr Exam Complete 07/09/2022 17:47:21 07/09/2022 17:47:21 07/09/2022 17:47:21 US Complete 07/09/2022 17:48:21 07/09/2022 18:52:20 Meds Admin Complete 07/09/2022 18:57:54 07/09/2022 19:17:16 Discharge Complete 07/09/2022 18:59:28 07/09/2022 19:31:06 07/09/2022 19:31:06 Transfer Complete 07/09/2022 19:31:06 07/09/2022 19:31:06 07/09/2022 19:31:06 ADDRESS: [address] [facility] [id number] PHYS DOC NOTES: MEDICAL INFORMATION: Prescriptions Given: New Medications [id number], [address], [place] [id number], [phone] cephalexin (Keflex 500 mg Cap) 1 Capsules By Mouth every 12 hours. Refills: 0. Medications to Continue with No Changes Other Medications aspirin (aspirin 81 mg Chew Tab) 1 Tablets Chewed every day. atorvastatin (atorvastatin 40 mg Tab) 1 Tablets By Mouth every day. darbepoetin thomas (Aranesp 25 mcg/0.42 mL Injection) doxazosin (doxazosin 1 mg oral tablet) 1 Tablets By Mouth every day. hydrALAZINE (hydrALAZINE 50 mg Tab) 1 Tablets By Mouth every 8 hours. insulin isophane-insulin regular (Novolin 70/30) 30 units in am, 14 units bedtime. insulin lispro (Humalog KwikPen) sliding scale tidhs. insulin regular (Novolin R) levothyroxine (Synthroid 100 mcg Tab) 1 Tablets By Mouth every day. midodrine (midodrine 5 mg Tab) multivitamin (Vitamin B Complex oral capsule) 1 Capsules By Mouth every day. multivitamin with minerals (Celebrate Multivitamin) polyethylene glycol 3350 17 Gram By Mouth every day as needed Constipation. PATIENT EDUCATION INFORMATION: Instructions: Thrombophlebitis Follow up: With: Address: When: Greg Alarcon [address] [place] [address] Business (1) In 3 days 07/12/2022 Comments: Follow-up with Dr. Alarcon for further evaluation of your fistula. With: Address: When: Nav Alejo [address] [facility], [place] [address] Business (1) In 3 days 07/12/2022 Comments: Follow-up with your primary care provider in 3 to 5 days. If symptoms worsen, do not improve, or new symptoms arise please report back to emergency department for further evaluation. DIAGNOSIS: Superficial thrombophlebitis [facility] ED Patient Education Noteon 07-09-2022 ED Patient Education Note Cardiovascular Thrombophlebitis Thrombophlebitis is a condition in which a blood clot and inflammation occur inside a vein. This can happen in the arms, legs, or torso. Thrombophlebitis may involve superficial veins, deep veins, or both. Superficial veins are close to the surface of the body and are part of the superficial venous system. Veins that are deeper inside the body are part of the deep venous system. When this condition happens in a superficial vein (superficial thrombophlebitis), it is usually not serious.However, when the condition happens in a vein that is part of the deep venous system (deep vein thrombosis, DVT), it can cause serious problems. What are the causes? This condition may be caused by: ? Infection, injury, or trauma to a vein. ? Inflammation of the veins. ? Medical conditions that can cause blood to clot more easily (hypercoagulable state). ? Backing up, or reflux, of blood flow through the veins (chronic venous insufficiency or venous stasis). What increases the risk? The following factors may make you more likely to develop this condition: ? Having a long, thin tube (catheter) put in a vein, such as a central line, port, or IV catheter. ? Getting certain medicines through a catheter that can irritate the vein. ? or having recently given . ? Cancer. ? Obesity. ? Taking oral contraceptive pills (OCPs) or hormone therapy (HT) medicines. ? Spasms of veins. ? Immobilization, or not moving the limbs for prolonged periods. What are the signs or symptoms? The main symptoms of this condition are: ? Swelling and pain in an arm or leg. If the affected vein is in the leg, you may feel pain while standing or walking. ? Warmth or redness in an arm or leg. ? Tenderness in the affected area when it is touched. Other symptoms include: ? Low-grade fever. ? Muscle aches. ? A bulging or hard vein (venous distension). In some cases, there are no symptoms. How is this diagnosed? This condition may be diagnosed based on: ? Your symptoms and medical history. ? A physical exam. ? Tests, such as a test that uses sound waves to make images (duplex ultrasound). How is this treated? Treatment depends on how severe the condition is and which area of the body is affected. Treatment may include: ? Applying a warm compress or heating pad to affected areas. This may need to be repeated several times a day. ? Moving the affected limb. For example, you may need to start doing walking exercises right away. You will also be encouraged to continue your usual daily activities. ? Raising (elevating) the affected arm or leg above the level of your heart. ? Medicines, such as: ? Anti-inflammatory medicines, such as ibuprofen. ? Blood thinners (anticoagulants) or anti-platelet drugs such as aspirin. ? Removing an IV or central line that may be causing the problem. ? Wearing compression stockings to help prevent blood clots and reduce swelling in your legs. Follow these instructions at home: Medicines ? Take zaam-ipo-ssmsgpl and prescription medicines only as told by your health care provider. ? If you are taking blood thinners: ? Talk with your health care provider before you take any medicines that contain aspirin or NSAIDs, such as ibuprofen. These medicines increase your risk for dangerous bleeding. ? Take your medicine exactly as told, at the same time every day. ? Avoid activities that could cause injury or bruising, and follow instructions about how to prevent falls. ? Wear a medical alert bracelet or carry a card that lists what medicines you take. Managing pain, stiffness, and swelling ? If directed, apply heat to the affected area as often as told by your health care provider. Use the heat source that your health care provider recommends, such as a moist heat pack or a heating pad. ? Place a towel between your skin and the heat source. ? Leave the heat on for 20?30 minutes. ? Remove the heat if your skin turns bright red. This is especially important if you are unable to feel pain, heat, or cold. You have a greater risk of getting burned. ? Elevate the affected area above the level of your heart while you are sitting or lying down. Activity ? Return to your normal activities as told by your health care provider. Ask your health care provider what activities are safe for you. ? Avoid sitting for a long time without moving. Get up to take short walks every 1?2 hours. This is important to improve blood flow and breathing. Ask for help if you feel weak or unsteady. ? Do exercises as told by your health care provider. ? Rest as told by your health care provider. General instructions ? Drink enough fluid to keep your urine pale yellow. ? Wear compression stockings as told by your health care provider. ? Do not use any products that contain nicotine or tobacco. These products include cigarettes, chew (more content not included)... Normal [facility] ED Patient Summaryon 023 ED Patient Summary (Inserted Image. Dejah ble to display) [address] [address] Patient Discharge Instructions Person Information Name: SETH MURPHY Age: 66 Years Arrival Date: 07/09/2022 17:21:55 Discharge Diagnosis: Superficial thrombophlebitis Primary Care Physician: Nav Alejo MD Provider Information Primary Provider: Adam Weinberg M.D. Advanced Rn Labor And Delivery:None The exam and treatment you received in the Emergency Department were for an urgent problem and are not intended as complete care. It is important that you follow up with a doctor, nurse practitioner, or physician?s social research assistant for ongoing care. If your symptoms become worse or you do not improve as expected and you are unable to reach your usual health care provider, you should return to the Emergency Department. We are available 24 hours a day. SETH MURPHY has been given the following list of patient education materials, prescriptions and follow-up instructions: Follow-up Instructions: With: Address: When: Greg Alarcon [address] [place] [address] Business (1) In 3 days 07/12/2022 Comments: Follow-up with Dr. Alarcon for further evaluation of your fistula. With: Address: When: Nav Alejo [address] [facility], [address] [place] [id number] Business (1) In 3 days 07/12/2022 Comments: Follow-up with your primary care provider in 3 to 5 days. If symptoms worsen, do not improve, or new symptoms arise please report back to emergency department for further evaluation. In the event that this physician does not participate in your insurance network, please consult with your insurance company to find a nearby participating provider. Patient Education Materials: Thrombophlebitis A MESSAGE TO ALL PATIENTS REGARDING OPIOIDS PRESCRIPTION OPIOIDS: WHAT YOU NEED TO KNOW Prescription opioids can be used to help relieve clpqxibr-pp-nbmtcp pain and are often prescribed following a surgery or injury, or for certain health conditions. These medications can be an important part of the treatment but also come with serious risks. It is important to work with your healthcare provider to make sure you are getting the safest, most effective care. WHAT ARE THE RISKS AND SIDE EFFECTS OF OPIOID USE? Prescription opioids carry serious risks of addiction and overdose, especially with prolonged use. An opioid overdose, often marked by slowed breathing, can cause sudden . The use of prescription opioids can have a number of side effects as well, even when taken as directed: ? Tolerance?meaning you might need to take more of the medication for the same pain relief ? Physical dependence?meaning you have symptoms of withdrawal when a medication is stopped ? Increased sensitivity to pain ? Constipation ? Nausea, vomiting, and dry mouth ? Sleepiness and dizziness ? Confusion ? Depression ? Low levels of testosterone that can result in lower sex drive, energy, and strength ? Itching and sweating RISKS ARE GREATER WITH: ? History of drug misuse, substance use disorder, or overdose ? Mental health conditions (such as depression or anxiety) ? Sleep apnea ? Older age (65 years and older) ? Avoid alcohol while taking prescription opioids. Also, unless specifically advised by your health care provider, medications to avoid include: ? Benzodiazepines (such as Xanax or Valium) ? Muscle relaxants (such as Soma or Flexeril) ? Hypnotics (such as Ambien or Lunesta) ? Other prescription opioids KNOW YOUR OPTIONS Talk to your health care provider about ways to manage your pain that don?t involve prescription opioids. Some of these options may actually work better and have fewer risks and side effects. Options may include: ? Pain relievers such as acetaminophen, ibuprofen, and naproxen ? Some medication that are also used for depression or seizures ? Physical therapy and exercise ? Cognitive behavioral therapy, a psychological, goal-directed approach, in which patients learn how to modify physical, behavioral, and emotional triggers of pain and stress. IF YOU ARE PRESCRIBED OPIOIDS FOR PAIN: ? Never take opioids in greater amounts or more often than prescribed. ? Follow up with your primary health care provider. o Work together to create a plan on how to manage your pain. o Talk about ways to help manage your pain that don?t involve prescription opioids. o Talk about any and all concerns and side effects. ? Help prevent misuse and abuse o Never sell or share prescription opioids. o Never use another person?s prescription opioids. ? Store prescription opioids in a secure place and out of reach of others (this may include visitors, children, friends, and family). ? Safely dispose of unused prescription opioids: Find your community drug take-back program or your pharmacy mail-back program, or flush the (more content not included)... [facility] Cardiovascular Reporton 06-12 Cardiovascular Report [id number]:127 [facility] Consent for Procedure/Surger yon 07-04-2022 Consent for Procedure/Surgery [id number]:127 [facility] Consultation Noteon 07-05-19 Consultation Note Patient: LALY MURPHY Age: 66 years Sex: Male : 1955 Associated Diagnoses: None Author: Brian SHIN, Sarah Ugalde Basic Information Requesting provider: hospitalist Reason for request: ESRD on HD History of Present Illness 66 M PMH DM, HTN, HLD, ESRD on HD, hypothyroid admitted after outpatient placement of HD cath by vascular surgery. Pt had a thrombosed fistula. Pt has not had HD since 06/27. We are consulted for his ESRD on HD. Review of Systems 14 systems reviewed, pertinent negatives and positives in HPI and impression/plan. Health Status Allergies: Allergic Reactions (Selected) Severity Not Documented Brilinta- Unknown. Coban Bandage- Rash., Allergies (2) Active Reaction Brilinta Unknown Coban Bandage Rash Current medications: (Selected) Inpatient Medications Ordered Dextrose 50% Soln-IV: 50 mL, Soln-IV, IV Push, Once PRN Blood glucose, Routine, Start date 07/02/22 16:44:00 EDT Insulin Lispro Sliding Scale: 0-10 Units, Injection-Insulin, SubCutaneous, QIDACHS, Routine, Start date 07/02/22 21:00:00 EDT Isovue-300 61% injectable solution 100 mL: = 100 mL, Injection, IV Push, q15min PRN Other (see comment) for 2 dose(s), Stop date Limited # of times, Routine, Start date 07/02/22 9:12:00 EDT, intraprocedure use Isovue-300 61% injectable solution 50 mL: = 50 mL, Injection, IV Push, q15min PRN Other (see comment) for 2 dose(s), Stop date Limited # of times, Routine, Start date 07/02/22 9:12:00 EDT, intraprocedure use Sodium Chloride 0.9% IV Nirmala 1000 mL 1,000 mL: 1,000 mL, IV, 30 mL/hr, Routine, Start date 07/02/22 9:12:00 EDT, 33.3 hour(s), Total volume (mL): 1,000, 94 kg, 2.16, m2 Zofran 4 mg/2 mL Injection: 4 mg = 2 mL, Injection, IV Push, q6hr PRN Nausea, Routine, Start date 07/02/22 16:43:00 EDT, 07/02/22 16:43:00 EDT acetaminophen 325 mg Tab: 650 mg = 2 tab(s), Tab, Oral, q6hr PRN Pain, Routine, Start date 07/02/22 16:43:00 EDT, 07/02/22 16:43:00 EDT aspirin 81 mg Chew Tab: 81 mg = 1 tab(s), Tab-Chew, Chewed, Daily, Routine, Start date 07/04/22 9:00:00 EDT, 07/03/22 9:09:00 EDT atorvastatin 40 mg Tab: 40 mg = 1 tab(s), Tab, Oral, Daily, Routine, Start date 07/04/22 9:00:00 EDT, 07/03/22 9:09:00 EDT atropine 1 mg/mL Inj: 1 mg = 1 mL, Injection, IV Push, Once PRN Other (see comment), Routine, Start date 07/02/22 9:12:00 EDT cefazolin additive + Sodium Chloride 0.9% intravenous solution 50 mL: 2 gram = 1 EA, Powder-Inj, IV Piggyback, PREOP, Routine, Start date 07/02/22 9:12:00 EDT, 100 mL/hr, Infuse over 30 minute(s), auto emissions technician to CV doxazosin 2 mg Tab: 1 mg = 0.5 tab(s), Tab, Oral, Daily, Routine, Start date 07/04/22 9:00:00 EDT, 07/03/22 9:09:00 EDT fentaNYL 50 mcg/mL Inj 2 mL: 100 microgram = 2 mL, Injection, IV, q2min PRN Other (see comment) for 4 dose(s), Stop date Limited # of times, Routine, Start date 07/02/22 9:12:00 EDT, 07/02/22 9:12:00 EDT flumazenil 0.1 mg/mL IV Nirmala: 0.1 mg = 1 mL, Soln-IV, IV, Once PRN Other (see comment), Routine, Start date 07/02/22 9:12:00 EDT, 07/02/22 9:12:00 EDT heparin 1000 units/500 ml-NaCL 0.9% Soln: 1,000 unit(s) = 500 mL, Soln-IV, Misc, Once PRN Other (see comment), Routine, Start date 07/02/22 9:12:00 EDT, intraprocedure use only heparin 1000 units/500 ml-NaCL 0.9% Soln: 1,000 unit(s) = 500 mL, Soln-IV, Misc, Once PRN Other (see comment), Routine, Start date 07/02/22 9:12:00 EDT, intraprocedure use only heparin 1000 units/mL Inj 1 mL: 5,000 unit(s) = 1 mL, Injection, IV Push, Once PRN Other (see comment), Routine, Start date 07/03/22 10:34:00 EDT heparin 1000 units/mL injectable solution: 10,000 unit(s) = 10 mL, Injection, IV Push, q5min PRN Other (see comment) for 2 dose(s), Stop date Limited # of times, Routine, Start date 07/02/22 9:12:00 EDT, 07/02/22 9:12:00 EDT heparin 5000 units/mL Inj: 5,000 unit(s) = 1 mL, Injection, SubCutaneous, BID for 30 day(s), Stop date 08/01/22 20:59:00 EDT, Routine, Start date 07/02/22 21:00:00 EDT, 07/02/22 16:43:00 EDT hydrALAZINE 25 mg Tab: 50 mg = 2 tab(s), Tab, Oral, q8hr, Routine, Start date 07/03/22 10:00:00 EDT, 07/03/22 9:10:00 EDT lidocaine 1% Inj 10 mL: 100 mg, 10 mL, Injection, SubCutaneous, q5min PRN Other (see comment) for 3 dose(s), Stop date Limited # of times, Routine, Start date 07/02/22 9:12:00 EDT midazolam 1 mg/mL preservative-free Inj 2 mL: 2 mg = 2 mL, Injection, IV, q2min PRN Other (see comment) for 4 dose(s), Stop date Limited # of times, Routine, Start date 07/02/22 9:12:00 EDT, 07/02/22 9:12:00 EDT naloxone 1 mg/mL Soln: 2 mg = 2 mL, Injection, IV Push, Once PRN Other (see comment), Routine, Start date 07/02/22 9:12:00 EDT, 07/02/22 9:12:00 EDT Documented Medications Documented Aranesp 25 mcg/0.42 mL Injection: Refills(s) 0 Celebrate Multivitamin: See Instructions, Refill(s) 0 Humalog KwikPen: See Instructions, sliding scale tidhs, Refills(s) 0 Novolin 70/30: See Instructions, Refill(s) 0, 30 units in am, 14 units bedtime, Blood glucose Novolin R: Refills(s (more content not included)... [facility] Comment on above: Result Comment: Elec tronically Signed By: Brian SHIN, Sarah Ugalde\.br\Date and Time Signed: 07/03/22 21:20 EDT\.br\Electronically Co-Signed By: Jatin Fournier MD\.br\Date and Time Co-Signed: 07/04/22 12:37 EDT Discharge Instructionson Discharge Instructions [id number]:127 Normal [facility] Progress Note-Nurseon 2022 Progress Note-Nurse [id number]:127 Normal [facility] Auto Diffon 07-03-2022 Basophils/100 WBC (Bld) 0.3 % Normal 0.0-2.0 [facility] Comment on above: Order Comment: Order Added by Discern Expert. Performed By: #### 2 [id number], [id number], [id number] ####[facility] [address] [place] [address] Basophils/Leukocytes Auto (Bld) [Pure # fraction] 0.0 E9/L Normal 0.0-0.2 [facility] Comment on above: Order Comment: Order Added by Discern Expert. Performed By: #### 2 [id number], [id number], [id number], [id number] ####[facility] [address] [place] [address] Eosinophils/100 WBC (Bld) 1.0 % Normal 0.0-8.0 [facility] Comment on above: Order Comment: Order Added by Discern Expert. Performed By: #### 2 187194, [id number], [id number], [id number] ####[facility] [address] [place] [address] Eosinophils/Leukocytes Auto (Bld) [Pure # fraction] 0.1 E9/L Normal 0.0-0.5 [facility] Comment on above: Order Comment: Order Added by Discern Expert. Performed By: #### 2 386077, 8112130, [id number], [id number] ####[facility] [address] [place] [address] Lymphocytes/100 WBC (Bld) 9.1 % Low 14.0-50.0 [facility] Comment on above: Order Comment: Order Added by Discern Expert. Performed By: #### 2 497830, [id number], [id number], [id number] ####[facility] [address] [place] [address] Lymphocytes/Leukocytes Auto (Bld) [Pure # fraction] 0.6 E9/L Low 1.0-4.0 [facility] Comment on above: Order Comment: Order Added by Cayla Expert. Performed By: #### 2 070419, [id number], [id number], [id number] ####[place] [address] [place] [address] Monocytes/100 WBC (Bld) 16.7 % High 4.0-14.0 [facility] Comment on above: Order Comment: Order Added by Cayla Expert. Performed By: #### 2 030587, 1154660, [id number], [id number] ####[facility] [address] [place] [address] Monocytes/Leukocytes Auto (Bld) [Pure # fraction] 1.2 E9/L High 0.2-1.0 [facility] Comment on above: Order Comment: Order Added by Discern Expert. Performed By: #### 2 [id number], [id number], [id number], [id number] ####[facility] [address] [place] [address] Neutrophils/100 WBC (Bld) 72.9 % Normal 36.0-75.0 [facility] Comment on above: Order Comment: Order Added by Cayla Expert. Performed By: #### 2 [id number], [id number], [id number], [id number] ####[facility] [address] [place] [address] Neutrophils/Leukocytes Auto (Bld) [Pure # fraction] 5.2 E9/L Normal 2.0-7.5 [facility] Comment on above: Order Comment: Order Added by Discern Expert. Performed By: #### 2 876822, [id number], [id number], [id number] ####[facility] [address] [place] [address] BMPon 07-03-2022 Anion gap [Moles/Vol] 19 mmol/L High 6-16 [facility] Comment on above: Performed By: #### 2 811602, 9108010, [id number], [id number] ####[facility] [address] [place] [address] Calcium [Mass/Vol] 8.3 mg/dL Low 8.9-11.1 [facility] Comment on above: Performed By: #### 2 517584, 1376134, [id number], [id number] ####[facility] [address] [place] [address] Chloride [Moles/Vol] 98 mmol/L Low 101-111 [facility] Comment on above: Performed By: #### 2 433968, 9166214, [id number], [id number] ####[facility] [address] [place] [address] CO2 [Moles/Vol] 23 mmol/L Normal 21-31 [facility] Comment on above: Performed By: #### 2 769715, 4533203, 7394437, [id number] ####[facility] [address] [place] [address] Creatinine [Mass/Vol] 17.8 mg/dL Abnormal 0.5-1.3 [facility] Comment on above: Result Comment: Crit ical Result S_CREA:17.80 Called to BRADY SILVERMAN AT 3N by CATHY LERNER And Read Back For Confirmation at: 07/03/2022 07:23:33\Critical Result verified by previous result Performed By: #### 2 [id number], [id number], [id number], [id number] ####[facility] [address] [place] [address] Glucose [Mass/Vol] 226 mg/dL High 55-199 [facility] Comment on above: Result Comment: If t his glucose result represents a fasting glucose, interpretation should refer to the following reference range: 55-99 mg/dL Performed By: #### 2 380232, 3540133, 1307595, [id number] ####[facility] [address] [place] [address] Potassium [Moles/Vol] 4.8 mmol/L Normal 3.5-5.3 [facility] Comment on above: Performed By: #### 2 154572, 9478680, 8637229, [id number] ####[facility] [address] [place] [address] Sodium [Moles/Vol] 135 mmol/L Normal 135-145 [facility] Comment on above: Performed By: #### 2 186799, 7708152, 4861466, 14120154 ####[facility] [address] [place] [address] Urea nitrogen [Mass/Vol] 88 mg/dL Abnormal 5-21 [facility] Comment on above: Result Comment: Crit ical Result S_BUN:88 Called to BRADY SILVERMAN AT 3N by CATHY LERNER And Read Back For Confirmation at: 07/03/2022 07:23:33\Critical Result verified by previous result Performed By: #### 2 365147, 4460033, 9570483, [id number] ####[facility] [address] [place] [address] Urea nitrogen/Creatinine [Mass ratio] 5 No Units Low 10-20 [facility] Comment on above: Performed By: #### 2 997365, 2596470, 6988609, [id number] ####[facility] [address] [place] [address] CBC w/ Auto Diffon 3 Erythrocyte distribution width (RBC) [Ratio] 17.0 % High 10.9-14.2 [facility] Comment on above: Performed By: #### 2 820929, 6415698, 5774077, 39505636 ####[place] [id number] Hematocrit (Bld) [Volume fraction] 26.8 % Low 37.7-49.0 [facility] Comment on above: Performed By: #### 2 309591, 4162971, 5033981, 36269694 ####[place] [address] Hemoglobin (Bld) [Mass/Vol] 9.2 g/dL Low 13.5-17.5 [facility] Comment on above: Performed By: #### 2 817956, 0421862, 4420260, 77284263 ####[place] [address] MCH (RBC) [Entitic mass] 30.4 pg Normal 27.0-34.0 [facility] Comment on above: Performed By: #### 2 206532, 9807603, 3032186, 25092387 ####[place] [address]7 MCHC (RBC) [Mass/Vol] 34.3 g/dL Normal 31.4-36.0 [facility] Comment on above: Performed By: #### 2 241700, 6002187, 6231056, 95460305 ####[address] [address] MCV (RBC) [Entitic vol] 88.5 fL Normal 80.0-100.0 [facility] Comment on above: Performed By: #### 2 999278, 3733095, 7533859, 16849825 ####[address] [address] Platelet mean volume (Bld) [Entitic vol] 8.4 fL Normal 6.4-10.8 [facility] Comment on above: Performed By: #### 2 232650, 4454954, 5621372, 52920913 ####[facility] [address] [place] [address] Platelets (Bld) [#/Vol] 155.0 E9/L Normal 150.0-500. 0 [facility] Comment on above: Performed By: #### 2 578884, 0007560, 4803095, 81942724 ####[facility] [address] [place] [address] RBC (Bld) [#/Vol] 3.0 E12/L Low 4.3-5.9 [facility] Comment on above: Performed By: #### 2 953229, 2765674, 8800769, 56819091 ####[facility] [address] [place] [address] WBC corrected for nucl RBC Auto (Bld) [#/Vol] 7.1 E9/L Normal 4.0-11.0 [facility] Comment on above: Result Comment: Slid e reviewed by BC. Performed By: #### 2 882070, 1877697, 5189946, 49300675 ####[facility] [address] [place] [address] Capillary Glucose POCon 06-12 Glucose [Mass/Vol] 146 mg/dL High 55-99 [facility] Comment on above: Result Comment: Ambrocio ELIAS Performed By: #### 2 [id number] #### [facility] [address] [place] [address] Glucose [Mass/Vol] 158 mg/dL High 55-99 [facility] Comment on above: Result Comment: Ambrocio ELIAS Performed By: #### 2 [id number] #### [facility] [address] [place] [address] Cardiovascular Reporton 06-12 Cardiovascular Report [id number]#[id number]:127 Normal [facility] Discharge Note-Nursingon Discharge Note-Nursing SETH MURPHY :1955 Visit Date:07/02/2022 Inpatient Discharge Instructions Your Care Team Admitting Physician - Dorian FISH, Greg Lopez Consulting Physician - Jatin Fournier MD Referring Physician - Dorian FISH, Greg Lopez Reason for Your Visit PERMACATH PLACEMENT FOR DIALYSIS Your Diagnosis ESRD on dialysis Diabetes Hypertension Hyperlipidemia Coronary artery disease Hypothyroid No contraindication to deep vein thrombosis (DVT) prophylaxis Tests Performed Automated Diff BMP Capillary Glucose POC CBC w/ Auto Diff eGFR CV Peripheralvascular -- Results Pending -- Please visit your patient portal for your results or contact your primary care physician. This Is Your Medications List aspirin (aspirin 81 mg Chew Tab) atorvastatin (atorvastatin 40 mg Tab) darbepoetin thomas (Aranesp 25 mcg/0.42 mL Injection) doxazosin (doxazosin 1 mg oral tablet) hydrALAZINE (hydrALAZINE 50 mg Tab) insulin isophane-insulin regular (Novolin 70/30) insulin lispro (Humalog KwikPen) insulin regular (Novolin R) levothyroxine (Synthroid 100 mcg Tab) midodrine (midodrine 5 mg Tab) multivitamin (Vitamin B Complex oral capsule) multivitamin with minerals (Celebrate Multivitamin) polyethylene glycol 3350 Procedure History Insertion of hemodialysis catheter (07/02/2022), Fistulogram with contrast (03/15/2022), Fluoroscopic fistulogram with contrast (11/02/2021), Fistulogram with contrast (08/04/2020), Removal of catheter (07/07/2020), MULTI SLIDE MACHINE TENDER (06/16/2020), AV - Creation of arteriovenous fistula (03/31/2020), AV fistula recirculation (08/06/2019), Abdominal hernia, Cholecystectomy, H/O: tracheostomy, Placement of stent in cardiac conduit. Discharge Vitals Temperature (Oral) 37.2 ?C Heart Rate (Monitored) 84 Respiratory Rate 16 Blood Pressure 145/71 Height 178 cm Weight 98.3 kg BMI 29.67 What to do next Instructions From Your Doctor Event Name Event Result Pending Diagnostic Test Results None Pharmacy Information [facility] , Other: [facility] Previously Scheduled Follow-Up Appointments Saturday 10:00 AM EDT With: Dorian FISH, Greg Lopez [facility] New Follow Up Appointments after Discharge Follow Up with Greg Alarcon When: 08/06/2022 10:00 AM EDT Where: [address] [place] [address]- Business (1) Follow Up with Nav Alejo When: 07/13/2022 11:15 AM EDT Where: [address] [facility] [place] [address]- Business (1) Medications What How Much When Instructions Next Dose Unchanged aspirin (aspirin 81 mg Chew Tab) 1 Tablets Chewed Every day 07/04 @ 9 AM Unchanged atorvastatin (atorvastatin 40 mg Tab) 1 Tablets By Mouth Every day 07/04 @ 9 AM Unchanged darbepoetin thomas (Aranesp 25 mcg/ 0.42 mL Injection) PREVIOUSLY SCHEDULED Unchanged doxazosin (doxazosin 1 mg oral tablet) 1 Tablets By Mouth Every day 07/04 @ 9 AM Unchanged hydrALAZINE (hydrALAZINE 50 mg Tab) 1 Tablets By Mouth Every 8 hours PREVIOUSLY TAKEN Unchanged insulin isophane-insulin regular (Novolin 70/ 30) See instructions 30 units in am, 14 units bedtime 07/03 @ 9 PM Unchanged insulin lispro (Humalog KwikPen) See instructions sliding scale tidhs BEFORE MEALS AND BEDTIME Unchanged insulin regular (Novolin R) PREVIOUSLY TAKEN Unchanged levothyroxine (Synthroid 100 mcg Tab) 1 Tablets By Mouth Every day 07/04 @ 9 AM Unchanged midodrine (midodrine 5 mg Tab) PREVIOSULY TAKEN Unchanged multivitamin (Vitamin B Complex oral capsule) 1 Capsules By Mouth Every day 07/04 @ 9 AM Unchanged multivitamin with minerals (Celebrate Multivitamin) See instructions Every day 07/04 @ 9 AM Unchanged polyethylene glycol 3350 17 Gram By Mouth Every day as needed for Constipation NEEDED FOR CONSTIPATION Test Results CBC BMP WBC: 7.1 E9/L (07/03/22 05:55:00) Glucose Lvl: 226 mg/dL High (07/03/22 05:55:00) RBC: 3 E12/L Low (07/03/22 05:55:00) BUN: 88 mg/dL Critical (07/03/22 05:55:00) HGB: 9.2 gm/dL Low (07/03/22 05:55:00) Creatinine: 17.8 mg/dL Critical (07/03/22 05:55:00) Hct: 26.8 % Low (07/03/22 05:55:00) BUN/Creat Ratio: 5 Low (07/03/22 05:55:00) MCV: 88.5 fL (07/03/22 05:55:00) Sodium Lvl: 135 mmol/L (07/03/22 05:55:00) MCH: 30.4 pg (07/03/22 05:55:00) Potassium Lvl: 4.8 mmol/L (07/03/22 05:55:00) MCHC: 34.3 gm/dL (07/03/22 05:55:00) Chloride: 98 mmol/L Low (07/03/22 05:55:00) RDW: 17 % High (07/03/22 05:55:00) CO2: 23 mmol/L (07/03/22 05:55:00) Platelet: 155 E9/L (07/03/22 05:55:00) AGAP: 19 mEq/L High (07/03/22 05:55:00) MPV: 8.4 fL (07/03/22 05:55:00) Calcium Lvl: 8.3 mg/dL Low (07/03/22 05:55:00) Allergies Brilinta (Unknown) Coban Bandage (Rash) Problems Ongoing - Any problem that you are currently receiving treatment for. Acute non-ST segment elevation myocardial infarction Acute systolic heart failure Coronary (more content not included)... Normal [facility] Inpatient Clinical Summaryon 07-03-2022 Inpatient Clinical Summary [place] [id number] Clinical Summary Person Information: Name: SETH MURPHY Age: 66 Years : 1955 Sex: Male PCP: Nav Alejo MD Marital Status: Race: White Ethnicity: Non- or Language: Chilean Visit Id: Visit Reason: PERMACATH PLACEMENT FOR DIALYSIS Speciality: Acuity: Enc Type: Observation Med Service: Medical Arrival: 07/02/2022 12:21:12 Discharge: Dispo Type: Address: [address] [facility] [id number] Provider Notes: Diagnosis: 1:ESRD on dialysis; 2:Diabetes; 3:Hypertension; 4:Hyperlipidemia; 5:Coronary artery disease; 6:Hypothyroid; 7:No contraindication to deep vein thrombosis (DVT) prophylaxis Problems Active Diabetes Hypertension Hyperlipidemia Coronary artery disease Hypothyroid ESRD (end stage renal disease) on dialysis Thrombophlebitis (05/06/2018) Venous insufficiency of leg (05/06/2018) Venous stasis ulcer of leg (05/06/2018) Pseudophakia (05/06/2018) Left ventricular hypertrophy (05/06/2018) Fatigue (05/06/2018) Essential hypertension (05/06/2018) Dyspnea (05/06/2018) Edema of lower extremity (05/06/2018) Dysuria (05/06/2018) Neuropathy due to diabetes mellitus (05/06/2018) Diabetes mellitus (08/22/2018) Coronary arteriosclerosis (05/06/2018) Acute non-ST segment elevation myocardial infarction (04/21/2018) Acute systolic heart failure (04/21/2018) Electrocardiogram abnormal (05/06/2018) Smoking Status: Never Smoker Functional Status: Sensory Deficits: Uncorrected visual impairment History of Falls: Within last one year Mobility Assistance Prior to Admission: Independent ADLs: Independent Current Level of Assistance for Self-Care/Mobility: Cognitive Status: Allergies Brilinta (Unknown) Coban Bandage (Rash) Measurements: Height: 178 cm Weight: 98.3 kg Blood Pressure: 145 mmHg / 71 mmHg BMI: 29.67 kg/m2 Procedures Insertion of hemodialysis catheter (07/02/2022) Immunizations No Immunizations Documented This Visit Final Med List: aspirin (aspirin 81 mg Chew Tab) 1 Tablets Chewed every day. atorvastatin (atorvastatin 40 mg Tab) 1 Tablets By Mouth every day. darbepoetin thomas (Aranesp 25 mcg/0.42 mL Injection) doxazosin (doxazosin 1 mg oral tablet) 1 Tablets By Mouth every day. hydrALAZINE (hydrALAZINE 50 mg Tab) 1 Tablets By Mouth every 8 hours. insulin isophane-insulin regular (Novolin 70/30) 30 units in am, 14 units bedtime. insulin lispro (Humalog KwikPen) sliding scale tidhs. insulin regular (Novolin R) levothyroxine (Synthroid 100 mcg Tab) 1 Tablets By Mouth every day. midodrine (midodrine 5 mg Tab) multivitamin (Vitamin B Complex oral capsule) 1 Capsules By Mouth every day. multivitamin with minerals (Celebrate Multivitamin) polyethylene glycol 3350 17 Gram By Mouth every day as needed Constipation. Care Team Members: Attending Physician: Greg Alarcon MD Consulting Physician: Jatin Fournier MD Referring Physician: Greg Alarcno MD Follow up: With: Address: When: Greg Alarcon [address] [place], [place] [id number] Business (1) Within 1 to 2 weeks With: Address: When: Nva Alejo [address] [place] [address], [place] [address] Business (1) Within 3 to 5 days Patient Education Information: CV - Cardiovascular Discharge Instructions (CUSTOM) [facility] Inpatient Patient Summaryon 07-03-2022 Inpatient Patient Summary [address] [address] Patient Discharge Instructions PERSON INFORMATION Name: SETH MURPHY Date of : 1955 Current Date: 07/03/2022 08:33:25 PHYSICIANS Admitting Physician: Greg Alarcon MD Primary Care Physician: Nav Alejo MD PCP Comment: Discharge Diagnosis: 1:ESRD on dialysis; 2:Diabetes; 3:Hypertension; 4:Hyperlipidemia; 5:Coronary artery disease; 6:Hypothyroid; 7:No contraindication to deep vein thrombosis (DVT) prophylaxis Condition at Discharge: Improved SETH MURPHY has been given the following list of follow-up instructions, prescriptions, and patient education materials: PATIENT FOLLOW-UP INFORMATION Diet: Discharge Activity: Discharge Restrictions: Wound Care Instructions: Remove Your Dressing In Days Call Your Doctor For: IF UNABLE TO CONTACT YOUR PHYSICIAN AND YOU FEEL IT IS AN EMERGENCY, GO TO THE NEAREST EMERGENCY ROOM OR CALL 911 Home Treatment: Devices/Equipment: Special Services: Additional Instructions: Primary Care Physician to provide the following pending test results: None Follow up: With: Address: When: [place] [address] Business (1) Within 1 to 2 weeks With: Address: When: Nav Alejo [address] [place] [address], [address] [place], [place] [id number] Business (1) Within 3 to 5 days In the event that this physician does not participate in your insurance network, please consult with your insurance company to find a nearby participating provider. Comment: BRIE Vilchis WILLIAM, have received the attached patient education materials/instructions and have verbalized understanding: Patient Signature __ Date Clinican/Nurse Signature Date HERE ARE THE MEDICATION CHANGES THAT OCCURRED DURING YOUR HOSPITAL STAY Medications to Continue with No Changes Other Medications aspirin (aspirin 81 mg Chew Tab) 1 Tablets Chewed every day. Last Dose: N ext Dose: atorvastatin (atorvastatin 40 mg Tab) 1 Tablets By Mouth every day. Last Dose: N ext Dose: darbepoetin thomas (Aranesp 25 mcg/0.42 mL Injection) Last Dose: N ext Dose: doxazosin (doxazosin 1 mg oral tablet) 1 Tablets By Mouth every day., blood pressure and urination Last Dose: N ext Dose: hydrALAZINE (hydrALAZINE 50 mg Tab) 1 Tablets By Mouth every 8 hours. Last Dose: N ext Dose: insulin isophane-insulin regular (Novolin 70/30) 30 units in am, 14 units bedtime. Last Dose: N ext Dose: insulin lispro (Humalog KwikPen) sliding scale tidhs. Last Dose: N ext Dose: insulin regular (Novolin R) Last Dose: N ext Dose: levothyroxine (Synthroid 100 mcg Tab) 1 Tablets By Mouth every day. Last Dose: N ext Dose: midodrine (midodrine 5 mg Tab) Last Dose: N ext Dose: multivitamin (Vitamin B Complex oral capsule) 1 Capsules By Mouth every day. Last Dose: N ext Dose: multivitamin with minerals (Celebrate Multivitamin) Last Dose: N ext Dose: polyethylene glycol 3350 17 Gram By Mouth every day as needed Constipation. Last Dose: N ext Dose: Comment: MEDICATION LIST PROVIDED FOR YOU IS A LIST OF YOUR CURRENT MEDICATIONS. PLEASE CARRY THIS WITH YOU AT ALL TIMES. aspirin (aspirin 81 mg Chew Tab) 1 Tablets Chewed every day. atorvastatin (atorvastatin 40 mg Tab) 1 Tablets By Mouth every day. darbepoetin thomas (Aranesp 25 mcg/0.42 mL Injection) doxazosin (doxazosin 1 mg oral tablet) 1 Tablets By Mouth every day. hydrALAZINE (hydrALAZINE 50 mg Tab) 1 Tablets By Mouth every 8 hours. insulin isophane-insulin regular (Novolin 70/30) 30 units in am, 14 units bedtime. insulin lispro (Humalog KwikPen) sliding scale tidhs. insulin regular (Novolin R) levothyroxine (Synthroid 100 mcg Tab) 1 Tablets By Mouth every day. midodrine (midodrine 5 mg Tab) multivitamin (Vitamin B Complex oral capsule) 1 Capsules By Mouth every day. multivitamin with minerals (Celebrate Multivitamin) polyethylene glycol 3350 17 Gram By Mouth every day as needed Constipation. Pharmacy Information: [facility] [place] , Other: [facility] Comment: PATIENT EDUCATION INFORMATION Instructions: [place], [place] CARDIOVASCULAR DISCHARGE INSTRUCTIONS Diet: ? Resume pre-procedure diet. ? Inc (more content not included)... Normal [facility] Interdisciplinary Note - Paresh e Manageron 07-03-2022 Interdisciplinary Note - Independent Beauty Consultant Pt is asleep in bed, receiving dialysis at this time. Pt is from home with , previously rounded with Dr. Arauz and plan to DC home after dialysis. contact information provided and white board updated. CRM following. [facility] Comment on above: Result Comment: Elec tronically Signed By: Obie TORREZ, Alaina\.br\Date and Time Signed: 07/03/22 10:14 EDT Monitor Recordon 07-03-2022 Monitor Record [id number]#[id number]:127 Normal [facility] Monitor Record [id number]#[id number]:127 Normal [facility] Monitor Record [id number]#[id number]:127 Normal [facility] Monitor Record [id number]#[id number]:127 [facility] Patient Education - Texton 0 07-03-2022 Patient Education - Text [place], [place] CARDIOVASCULAR DISCHARGE INSTRUCTIONS Diet: ? Resume pre-procedure diet. ? Increase water intake the next 2 days to flush dye out of the body. Activity: ? Limit activity today. Do not operate a vehicle, machinery or power tools. ? NO LIFTING OVER 10 POUNDS (a gallon of milk weighs 8 pounds) for 3 days. ? Limit climbing stairs, bending, squatting and stooping for 3 days. ? May resume driving in 24 hours. ? No sexual activity for 1 week. ? Let pain/discomfort guide your activity. If you are having pain, stop. ? Return to the Emergency Room if you have trouble breathing, walking or nausea and vomiting. Medications: ? Resume pre-procedure medication, unless otherwise directed. ? Hold the following medications for 48 hours post procedure: Actoplus Met Glucophage Glucophage XR Glucovance Avandamet Fortamet Apo-metformin Glycon Santo-metformin Glumetza Janumet Metaglip Riomet Glycomet *Minimal pain, soreness and/or discomfort is expected. *You may take OTC non-steroidal anti-inflammatory to manage discomfort, unless contraindicated. If pain is not controlled with the above medications, contact your physician. Site Care: ? Do not remove dressing for 24 hours unless it becomes saturated, then replace. ? Keep site clean and dry; inspect site daily. ? Do not use any lotions, powders, or ointments at the groin or wrist site for 1 week. ? May shower 24 hours after the procedure. Clean site with soap and water. Pat dry and apply band aid. No tub baths, swimming or hot tubs for 3 days Post Procedure: ? Soreness and tenderness to the site can last up to one week. ? Bruising may occur to site. ? A responsible adult should be with you for the first 24 hours after you arrive home. ? Keep follow-up appointment. ? No smoking for 24 hours as it increases the risk of developing blood clots. ? If you are interested in smoking cessation, contact [facility] at [phone], ext. [phone]. ? In the event you are unable to reach your physician, please call [facility] at [phone] and the cocoa butter filter operator will assist you. Seek Immediate Medical Care for: ? Bleeding: Apply continuous pressure to the site and Call 911. ? Should the arm or leg become cold, numb, blue or white call your physician immediately. ? Signs of infection are redness, warmth, swelling, increased tenderness, colored drainage, fever or chills ? Chest pain Normal [facility] Progress Note-Physicianon Progress Note-Physician Assessment/Plan 1. ESRD on dialysis (N18.6: End stage renal disease) - has not had HD since last Saturday, d/w nephrology reviewed labs, potassium stable, no acidosis, no evidence of fluid overload, as per nephrology will do HD today - d/w nephrology, can be discharged after HD today and resume outpatient HD as per his usual MWF Ordered: 2. Diabetes (E11.9: Type 2 diabetes mellitus without complications) - stable, continue 70/30 insulin subcutaneous - start SSI ACHS subcutaneous 3. Hypertension (I10: Essential (primary) hypertension) - stable, continue PO atorvastatin 4. Hyperlipidemia (E78.5: Hyperlipidemia, unspecified) - stable, continue PO atorvastatin 5. Coronary artery disease (I25.10: Atherosclerotic heart disease of [place] coronary artery without angina pectoris) - stable, continue PO ASA, statin 6. Hypothyroid (E03.9: Hypothyroidism, unspecified) - stable, continue PO synthroid 7. No contraindication to deep vein thrombosis (DVT) prophylaxis (Z78.9: Other specified health status) - ordered SCDs, start heparin subcutaneous bid Orders: acetaminophen, 650 mg = 2 tab(s), Tab, Oral, q6hr PRN Pain, Routine, Start date 07/02/22 16:43:00 EDT, 07/02/22 16:43:00 EDT glucose, 50 mL, Soln-IV, IV Push, Once PRN Blood glucose, Routine, Start date 07/02/22 16:44:00 EDT heparin, 5,000 unit(s) = 1 mL, Injection, SubCutaneous, BID for 30 day(s), Stop date 08/01/22 20:59:00 EDT, Routine, Start date 07/02/22 21:00:00 EDT, 07/02/22 16:43:00 EDT insulin lispro, 0-10 Units, Injection-Insulin, SubCutaneous, QIDACHS, Routine, Start date 07/02/22 21:00:00 EDT ondansetron, 4 mg = 2 mL, Injection, IV Push, q6hr PRN Nausea, Routine, Start date 07/02/22 16:43:00 EDT, 07/02/22 16:43:00 EDT Ambulate with Assistance Basic Metabolic Panel Below the Knee Intermittent Pneumatic Compression Device Cardiac Monitoring CBC w/ Auto Diff Consult to Nephrology eGFR Evaluate Need For Continued Telemetry Hypoglycemia Protocol Responsive Patient Hypoglycemia Protocol Unresponsive Patient Intake and Output Notify Provider Vital Signs Notify Provider Vital Signs Oxygen Protocol Place in Status Pulse Oximetry Renal Diet Routine Capillary Glucose POC Vital Signs Weight Subjective Pt denies any chest pain or sob. no nausea or vomiting. Review of Systems Constitutional: No fevers, chills Eye: Negative. Ear/Nose/Mouth/Throat: Negative. Respiratory: Negative Cardiovascular: Negative. Gastrointestinal: Negative. Genitourinary: Negative. Immunologic: Negative. Musculoskeletal: Negative. Integumentary: Negative. Neurologic: Negative. Psychiatric: Negative. All other systems are negative Objective Vitals & Measurements T: 37.2 ?C(Oral) TMIN: 36.6 ?C(Oral) TMAX: 37.7 ?C(Oral) HR: 84(Monitored) RR: 16 BP: 145/71 SpO2: 95% HT: 178 cm WT: 98.3 kg Intake & Output No qualifying data available. Physical Exam General: alert, no acute distress ENMT oral mucosa moist, no pharyngeal erythema or exudate Cardiovascular: regular rate and rhythm, normal peripheral perfusion Respiratory: Lungs CTA, respirations non labored Abdomen: soft, NTND, +BS Skin: warm, dry, intact Extremities: no deformity, no trauma Neurological: LOC appropriate for age, CN II-XII intact, motor strength equal & normal bilaterally, sensation equal & normal bilaterally, speech normal Lab Results Glucose Lvl: 226 mg/dL High (07/03/22 05:55:00) BUN: 88 mg/dL Critical (07/03/22 05:55:00) Creatinine: 17.8 mg/dL Critical (07/03/22 05:55:00) eGFR: 3 mL/min/1.73 m2 Low (07/03/22 05:55:00) BUN/Creat Ratio: 5 Low (07/03/22 05:55:00) Sodium Lvl: 135 mmol/L (07/03/22 05:55:00) Potassium Lvl: 4.8 mmol/L (07/03/22 05:55:00) Chloride: 98 mmol/L Low (07/03/22 05:55:00) CO2: 23 mmol/L (07/03/22 05:55:00) AGAP: 19 mEq/L High (07/03/22 05:55:00) Calcium Lvl: 8.3 mg/dL Low (07/03/22 05:55:00) Glucose Cap: 253 mg/dL High (07/02/22 20:48:00) POC Device SN: [id number] (07/02/22 20:48:00) POC User ID: [id number] (07/02/22 20:48:00) POC Username: PINA HU (07/02/22 20:48:00) Problem List/Past Medical History Ongoing Acute non-ST segment elevation myocardial infarction Acute systolic heart failure Coronary arteriosclerosis Coronary artery disease Diabetes Diabetes mellitus Dyspnea Dysuria Edema of lower extremity Electrocardiogram abnormal ESRD (end stage renal disease) on dialysis Essential hypertension Fatigue Hyperlipidemia Hypertension Hypothyroid Left ventricular hypertrophy Neuropathy due to diabetes mellitus Pseudophakia Thrombophlebitis Venous insufficiency of leg Venous stasis ulcer of leg Historical Anemia Congestive heart failure Hyperlipidemia Palpitations Thrombosis of superficial vein of lower limb Medications Inpatient acetaminophen 325 mg Tab, 650 mg= 2 tab(s), Oral, q6hr, PRN atropine 1 mg/mL Inj, 1 mg= 1 mL, IV Push, Once, PRN cefazolin ad (more content not included)... Normal [facility] Comment on above: Result Comment: Elec tronically Signed By: Pedro ARAUZ MD\.br\Date and Time Signed: 07/03/22 08:34 EDT eGFRon 07-03-2022 GFR/1.73 sq M.predicted among non-blacks MDRD (S/P/Bld) [Vol rate/Area] 3 mL/min/1.73 m2 Low >=59 [facility] Comment on above: Order Comment: Order added by Discern Expert. Result Comment: Painter Maintenance jm kidney disease could be indicated at eGFR's of less than 60 mL/min/1.73m2. Kidney failure is indicated at less than 15 mL/min/1.73m2. Performed By: #### 2 [id number], [id number], 5126353, [id number] ####[facility] [address] [place] [address] BMPon 07-02-2022 Creatinine [Mass/Vol] 16.8 mg/dL Abnormal 0.5-1.3 Fis [facility] Comment on above: Result Comment: Crit ical Result S_CREA:16.80 Called to LINDY MELTON AT [facility] by CATHY LERNER And Read Back For Confirmation at: 07/02/2022 13:30:56\Critical Result verified by repeat analysis Performed By: #### 1 [id number], [id number], [id number], [id number] #### [facility] [address] [place] [address] Urea nitrogen [Mass/Vol] 78 mg/dL High 5-21 [facility] Comment on above: Performed By: #### 1 [id number], 1836308, 3091441, 7103167 #### [facility] [address] [place] [address] Urea nitrogen/Creatinine [Mass ratio] 5 No Units Low 10-20 [facility] Comment on above: Performed By: #### 1 [id number], 1846130, 1785301, 1857137 #### [facility] [address] [place] [address] Anion gap [Moles/Vol] 22 mmol/L High 6-16 [facility] Comment on above: Performed By: #### 1 [id number], 8004263, 9960333, 5721400 #### [facility] [address] [facility] [place] [address] Calcium [Mass/Vol] 8.9 mg/dL Normal 8.9-11.1 [facility] Comment on above: Performed By: #### 1 [id number], 6927498, 5031342, 4730376 #### [facility] [address] [facility] [place] [address] Chloride [Moles/Vol] 96 mmol/L Low 101-111 [facility] Comment on above: Performed By: #### 1 [id number], 6415864, 0271422, 3762530 #### [facility] [address] [place] [address] CO2 [Moles/Vol] 21 mmol/L Normal 21-31 [facility] Comment on above: Performed By: #### 1 7034885, 1576216, 3317456, 5940523 #### [facility] [address] [place] [address] Glucose [Mass/Vol] 229 mg/dL High 55-199 [facility] Comment on above: Result Comment: If t his glucose result represents a fasting glucose, interpretation should refer to the following reference range: 55-99 mg/dL Performed By: #### 1 [id number], 5584967, 8037580, 5459101 #### [facility] [address] [place] [address] Potassium [Moles/Vol] 4.9 mmol/L Normal 3.5-5.3 [facility] Comment on above: Performed By: #### 1 3462935, 7603065, 4487381, 9097823 #### [facility] [address] [place] [address] Sodium [Moles/Vol] 134 mmol/L Low 135-145 [facility] Comment on above: Performed By: #### 1 [id number], 9214845, 7235880, 8120259 #### [facility] [address] [place] [address] Capillary Glucose POCon 06-12 Glucose [Mass/Vol] 253 mg/dL High 55-99 [facility] Comment on above: Performed By: #### 2 [id number] ####[facility] [address] [place] [address] Consent for Treatmenton 06-12 Consent for Treatment [id number]#[id number]:127 Normal [facility] Interdisciplinary Note - Bang singon 07-02-2022 Interdisciplinary Note - Nursing Called and spoke with Dr. Agudelo- patient's biology specimen technician regarding his lab values. Patient has not have dialysis since last Saturday06/27/22. Patient is not in any acute distress, does not appear fluid-overloaded, and denies shortness of breath, however physician contacted regarding patient's critical labs. Patient is to report to [facility] tomorrow morning at 6:30 am. Patient and family member at bedside aware and agree with plan. Normal [facility] Monitor Recordon 07-02-2022 Monitor Record [id number]#[id number]:127 Normal [facility] Operative Reporton Operative Report SURGERY DATE: 2022 PREOPERATIVE DIAGNOSIS: End-stage renal disease POSTOPERATIVE DIAGNOSIS: End-stage renal disease OPERATION: Left internal jugular Permacath placement ANESTHESIA: Conscious sedation done under my supervision for a total of 15 minutes, 1 mg of Versed and 50 of Fentanyl were given INDICATIONS: This is a 66 year old gentleman who has clotted off left arm AV fistula. He is here for Permacath placement. PROCEDURE: The patient was taken back to the Catheterization Laboratory and placed in the supine position. Appropriate cardiopulmonary monitors were set. Anesthesia was induced. The neck and chest were prepped and draped in the usual sterile surgical fashion. After a timeout and safety pause under ultrasound guidance the internal jugular was accessed using a Seldinger maneuver. Under local anesthesia catheter was tunneled from the anterior chest wall to this access site. Catheter was placed inside introducer sheath which was peeled away. The tip of the catheter was in the junction of the right atrium and the right atrium and the SVC. It was flushing and drawing with no problems. Packed with Heparin and sutured in place. The patient tolerated the procedure very well. No complications. Greg Alarcon M.D. lr Dictated: 07/02/2022 [id number] Transcribed: 07/02/2022 Normal [facility] Comment on above: Result Comment: Elec tronically Signed By: Dorian FISH, Greg Lopez\.br\Date and Time Signed: 07/02/22 15:32 EDT eGFRon 07-02-2022 GFR/1.73 sq M.predicted among non-blacks MDRD (S/P/Bld) [Vol rate/Area] 3 mL/min/1.73 m2 Low >=59 [facility] Comment on above: Order Comment: Order added by Discern Expert. Result Comment: Painter Maintenance jm kidney disease could be indicated at eGFR's of less than 60 mL/min/1.73m2. Kidney failure is indicated at less than 15 mL/min/1.73m2. Performed By: #### 1 [id number], 4196357, 7929189, 5766884 #### [facility] [address] [place] [address] Discharge Instructionson Discharge Instructions [id number]#[id number]:127 Normal [facility] BMPon 06-29-2022 Creatinine [Mass/Vol] 10.3 mg/dL Abnormal 0.5-1.3 Fis [facility] Comment on above: Result Comment: Crit ical Result verified by repeat analysis\Critical Result S_CREA:10.30 Called to DOMINGO LANGE AT by NOEL ORNELAS And Read Back For Confirmation at: 06/29/2022 17:06:57 Performed By: #### 1 [id number], 1312349, 6234353, 7167958 #### [facility] [address] [place] [address] Urea nitrogen [Mass/Vol] 41 mg/dL High 5-21 [facility] Comment on above: Performed By: #### 1 6042196, 1852138, 8768186, 7546336 #### [facility] [address] [place] [address] Urea nitrogen/Creatinine [Mass ratio] 4 No Units Low 10-20 [facility] Comment on above: Performed By: #### 1 4509801, 3896448, 7950571, 4516734 #### [facility] [address] [place] [address] Anion gap [Moles/Vol] 16 mmol/L Normal 6-16 [facility] Comment on above: Performed By: #### 1 6272068, 9918322, 4311292, 8011407 #### [facility] [address] [place] [address] Calcium [Mass/Vol] 9.6 mg/dL Normal 8.9-11.1 [facility] Comment on above: Performed By: #### 1 5887801, 4660994, 2926797, 6539283 #### [facility] [address] [place] [address] Chloride [Moles/Vol] 98 mmol/L Low 101-111 [facility] Comment on above: Performed By: #### 1 3925238, 5221566, 0909823, 5525996 #### [facility] [address] [place] [address] CO2 [Moles/Vol] 25 mmol/L Normal 21-31 [facility] Comment on above: Performed By: #### 1 0151973, 0557724, 9366855, 8117489 #### [facility] [address] [place] [address] Glucose [Mass/Vol] 159 mg/dL Normal 55-199 [facility] Comment on above: Result Comment: If t his glucose result represents a fasting glucose, interpretation should refer to the following reference range: 55-99 mg/dL Performed By: #### 1 [id number], 6721607, 8543504, 2384328 #### [facility] [address] [place] [address] Potassium [Moles/Vol] 4.3 mmol/L Normal 3.5-5.3 [facility] Comment on above: Performed By: #### 1 3637000, 0371393, 8921671, 6049542 #### [facility] [address] [place] [address] Sodium [Moles/Vol] 135 mmol/L Normal 135-145 [facility] Comment on above: Performed By: #### 1 6391531, 3659372, 9845320, 0461538 #### [facility] [address] [place] [address] Consent for Treatmenton 06-11 Consent for Treatment [id number]:127 Normal [facility] ED Clinical Summaryon 2022 ED Clinical Summary (Inserted Image. Dejah ble to display) [address] [address] ED Clinical Summary Person Information Name: SETH MURPHY/[facility] Age: 66 Years : 1955 Sex: Male Language: Chilean PCP: Nav Alejo MD Marital Status: Visit Id: Visit Reason: Medical problem - minor; DIALYSIS ISSUE Speciality: Acuity: 3 Enc Type: Emergency Med Service: Emergency Arrival: 06/29/2022 15:44:02 Discharge: 06/29/2022 19:15:00 LOS: 000 03:31 Checkin: 06/29/2022 15:44:02 Checkout: 06/29/2022 19:15:00 Dispo Type: Home (Routine DC) EVENTS: Event Name Event Status Request Date/Time Start Date/Time Complete Date/Time Arrive Complete 06/29/2022 15:44:02 06/29/2022 15:44:02 06/29/2022 15:44:02 Document Home Meds Request 06/29/2022 15:44:02 Triage Complete 06/29/2022 15:44:02 06/29/2022 15:58:23 06/29/2022 15:58:23 Bed Assign Complete 06/29/2022 15:53:46 06/29/2022 15:53:46 06/29/2022 15:53:46 Dr Exam Complete 06/29/2022 15:53:46 06/29/2022 15:56:26 06/29/2022 15:56:26 RN Exam Complete 06/29/2022 15:53:46 06/29/2022 16:53:11 06/29/2022 16:53:11 Registration Complete 06/29/2022 15:56:26 06/29/2022 16:04:09 06/29/2022 16:04:09 Reg Complete Request 06/29/2022 16:04:09 Pending Labs Complete 06/29/2022 16:21:17 06/29/2022 17:07:04 Lab Complete 06/29/2022 16:21:17 06/29/2022 17:07:04 Pending Labs Complete 06/29/2022 16:40:52 06/29/2022 16:40:52 06/29/2022 17:07:04 Lab Complete 06/29/2022 16:40:52 06/29/2022 16:40:52 06/29/2022 17:07:04 Pending Labs Complete 06/29/2022 18:45:14 06/29/2022 18:45:14 06/29/2022 18:45:14 Discharge Complete 06/29/2022 18:58:22 06/29/2022 19:18:57 06/29/2022 19:18:57 Transfer Complete 06/29/2022 19:18:57 06/29/2022 19:18:57 06/29/2022 19:18:57 ADDRESS: [address] [place] [id number] [facility] DOC NOTES: MEDICAL INFORMATION: Prescriptions Given: Medications to Continue with No Changes Other Medications aspirin (aspirin 81 mg Chew Tab) 1 Tablets Chewed every day. atorvastatin (atorvastatin 40 mg Tab) 1 Tablets By Mouth every day. darbepoetin thomas (Aranesp 25 mcg/0.42 mL Injection) doxazosin (Cardura 1 mg Tab) doxazosin (doxazosin 1 mg oral tablet) 1 Tablets By Mouth every day. hydrALAZINE (hydrALAZINE 50 mg Tab) 1 Tablets By Mouth every 8 hours. insulin isophane-insulin regular (Novolin 70/30) 30 units in am, 14 units bedtime. insulin lispro (Humalog KwikPen) sliding scale tidhs. insulin regular (Novolin R) levothyroxine (Synthroid 100 mcg Tab) 1 Tablets By Mouth every day. midodrine (midodrine 5 mg Tab) multivitamin (Vitamin B Complex oral capsule) 1 Capsules By Mouth every day. multivitamin with minerals (Celebrate Multivitamin) polyethylene glycol 3350 17 Gram By Mouth every day as needed Constipation. PATIENT EDUCATION INFORMATION: Instructions: AV Fistula Placement, Care After; Potassium Content of Foods Follow up: With: Address: When: Greg Alarcon [address] [place], [place] [id number] Business () In 3 days 07/02/2022 Comments: Call the office of Dr. Alarcon upon opening on Saturday to arrange for permacath dialysis catheter placement on Saturday. With: Address: When: HILARIO NUNEZ [address] [place] [address], [facility] [place] [id number] Business (1) In 3 days 07/02/2022 Comments: Call the office on Saturday and notify them of the issues with your fistula. Ask them to arrange dialysis for you on Saturday. Eat a low potassium diet. Limit your fluid intake. If you become short of breath or begin feeling unwell return to the ED immediately for reevaluation. With: Address: When: Nav Alejo [address] [facility], [facility] [place] [id number] Business (1) In 3 days 07/02/2022 Comments: Call the office of your primary care doctor to arrange for follow-up within the above-stated timeframe. Follow-up with your primary care doctor about this ED visit. You should review your labs, imaging, and diagnoses from this ED visit with your primary care physician. There are occasionally non-emergent findings that require additional follow-up after your ED visit. If you were prescribed medications you should discuss possible side-effects and drug interactions with your pharmacist. Call 911 or go to the nearest Emergency Department if you develop any new or worsening symptoms. DIAGNOSIS: Complication of AV dialysis fistula Normal [facility] ED Note-Physicianon 06-30-19 ED Note-Physician Basic Information Time Seen: Reji Azar DO 06/29/2022 15:56 Chief Complaint pt reports fistula in left arm is clotted off and not working. pt came from dialysis center in [place] History of Present Illness 66-year-old male to the emergency chief complaint of failure of his left upper extremity fistula. He reports end-stage renal disease. He reports that he has had the fistula in his left upper extremity for more than a year. Dr. Alarcon placed the fistula. He denies any pain or injuries. He denies any redness or warmth. Last dialyzed on Saturday at which time he reports there was some issue accessing his fistula. He was sent to the emergency department by dialysis for vascular surgery consultation. Review of Systems A 10 point review of systems is negative except as noted above. Medical and Surgical History: Reviewed and noted Social history: Lives at home Tobacco: Denies Physical Exam Vitals & Measurements T: 36.5 ?C(Tympanic) HR: 88(Peripheral) RR: 18 BP: 91/59 SpO2: 96% HT: 178 cm WT: 94 kg BMI: 29.67 VITALS: I have reviewed the triage vital signs. GENERAL: Well developed, well appearing adult in no acute distress. NEURO: Alert and oriented. Moves all extremities. Face is symmetric and expressive. EYES: PERRL. No scleral icterus or conjunctival injection. No discharge. HENT: Normocephalic, atraumatic. Hearing is grossly intact. Nares grossly patent and without discharge. Mucous membranes moist. NECK: No JVD. Patient moves neck without restriction. CARDIO: Rhythm regular. Normal rate. No murmur, rub, or gallop. Pulses equal bilaterally in the upper and lower extremity. No lower extremity edema. PULM: Lungs clear to auscultation in all sanders. No wheezes, rales, or rhonchi. No conversational dyspnea. No splinting, stridor, or accessory muscle use. GI/: Abdomen is soft and non-tender. Normoactive bowel sounds. EXTREMITIES: Symmetric muscle bulk. No joint swelling. No clubbing, cyanosis, or deformity. Fistula in the left upper extremity without palpable thrill or audible home. Radial pulses intact in left upper extremity. There is no edema to the left upper extremity. SKIN: Warm and dry. Normal turgor. No rash or lesions appreciated. PSYCH: Mood, affect, and interaction is appropriate to the setting. Medical Decision Making 66-year-old male to the emergency department chief complaint of fistula clotted off from dialysis. Vital stable, the patient is afebrile. Left upper extremity is neurovascularly intact without evidence of infection. Lab work is ordered to ensure no significant electrolyte abnormalities. His potassium is within normal limits. Does not appear volume overloaded clinically. No respiratory distress. No oxygen requirement. Case discussed with the on-call vascular surgeon Dr. Alarcon. He requested an ultrasound. Ultrasound shows clot throughout the fistula. Case was discussed with Dr. Agudelo who is on-call for the patient's biology specimen technician Dr. Nunez. He is okay with the patient waiting for dialysis until Saturday. Low potassium diet. Volume restriction. Return to the ED immediately with any symptoms. Dr. Alarcon will place permacath on Saturday. Requested the patient call the office first thing to arrange procedure. Recommendations were discussed with the patient. He is agreeable with this plan. Return precautions were discussed. All questions were answered. Patient was discharged home. Assessment/Plan Complication of AV dialysis fistula (T82.9XXA: Unspecified complication of cardiac and vascular prosthetic device, implant and graft, initial encounter) Orders: Basic Metabolic Panel Disposition Plan Patient Discharge Condition Stable Discharge Disposition Home Discharge Prescription List Prescriptions No active prescription medications Follow-up With When Contact Information Greg Alarcon In 3 days 07/02/2022 EDT [address] [facility] [place] [address]- Business (1) Additional Instructions: Call the office of Dr. Alarcon upon opening on Saturday to arrange for permacath dialysis catheter placement on Saturday. HILARIO NUNEZ In 3 days 07/02/2022 EDT [address] [place] [address] [place] [address]- Business (1) Additional Instructions: Call the office on Saturday and notify them of the issues with your fistula. Ask them to arrange dialysis for you on Saturday. Eat a low potassium diet. Limit your fluid intake. If you become short of breath or begin feeling unwell return to the ED immediately for reevaluation. Nav Alejo In 3 days 07/02/2022 EDT [address] [facility] [place] [address]- Business (1) Additional Instructions: Call the office of your primary care doctor to arrange for follow-up within the above-stated timeframe. Follow-up with your primary care doctor about this ED visit. You should review your labs, imaging, and diagnoses from this ED visit with your primary care physician. There are occasionally non-emergent findings that requir (more content not included)... Normal [facility] Comment on above: Result Comment: Elec tronically Signed By: Reji Azar DO\.br\Date and Time Signed: 06/29/22 19:10 EDT ED Patient Education Noteon 06-29-2022 ED Patient Education Note Nephrology AV Fistula Placement, Care After The following information offers guidance on how to care for yourself after your procedure. Your health care provider may also give you more specific instructions. If you have problems or questions, contact your health care provider. What can I expect after the procedure? After the procedure, it is common to have: ? Soreness at the fistula site. ? Vibration (thrill) over the fistula. Follow these instructions at home: Medicines ? Take tsfi-isl-mcxenlk and prescription medicines only as told by your health care provider. ? Ask your health care provider if the medicine prescribed to you can cause constipation. You may need to take these actions to prevent or treat constipation: ? Drink enough fluid to keep your urine pale yellow. ? Take drja-ril-bsimrcl or prescription medicines. ? Eat foods that are high in fiber, such as beans, whole grains, and fresh fruits and vegetables. ? Limit foods that are high in fat and processed sugars, such as fried or sweet foods. Incision care Follow instructions from your health care provider about how to take care of your incision. Make sure you: ? Wash your hands with soap and water for at least 20 seconds before and after you change your bandage (dressing). If soap and water are not available, use hand country manager. ? Change your dressing as told by your health care provider. ? Leave stitches (sutures), skin glue, or adhesive strips in place. These skin closures may need to stay in place for 2 weeks or longer. If adhesive strip edges start to loosen and curl up, you may trim the loose edges. Do not remove adhesive strips completely unless your health care provider tells you to do that. Fistula care ? Check your fistula site every day to make sure the thrill feels the same. ? Check your fistula site every day for signs of infection. Check for: ? More redness, swelling, or pain. ? Fluid or blood. ? Warmth. ? Pus or a bad smell. ? Raise (elevate) the affected area above the level of your heart while you are sitting or lying down. ? Do not lift anything that is heavier than 10 lb (4.5 kg), or the limit that you are told, until your health care provider says that it is safe. ? Do not lie down on your fistula arm. ? Do not let anyone draw blood or take a blood pressure reading on your fistula arm. This is important. ? Do not wear tight jewelry or clothing over your fistula arm. Bathing ? Do not take baths, swim, or use a hot tub until your health care provider approves. Ask your health care provider if you may take showers. You may only be allowed to take sponge baths. ? Keep the area around your incision clean and dry. General instructions ? Rest at home for a day or two. ? If you were given a sedative during the procedure, it can affect you for several hours. Do not drive or operate machinery until your health care provider says that it is safe. ? Return to your normal activities as told. Ask your health care provider what activities are safe for you. ? Keep all follow-up visits. This is important. Contact a health care provider if: ? You have more redness, swelling, or pain around your fistula site. ? Your fistula site feels warm to the touch. ? You have pus or a bad smell coming from your fistula site. ? You have a fever or chills. ? You feel numb or cold in your arm or your fistula site. ? You feel a decrease or a change in the thrill over the fistula. Get help right away if: ? You have bleeding from your fistula site that will not stop. ? You have chest pain. ? You have trouble breathing. These symptoms may represent a serious problem that is an emergency. Do not wait to see if the symptoms will go away. Get medical help right away. Call your local emergency services (911 in the [place] Do not drive yourself to the hospital. Summary ? Follow instructions from your health care provider about how to take care of your incision. ? Do not let anyone draw blood or take a blood pressure reading on your fistula arm. This is important. ? Contact a health care provider if you have a change in the thrill or have any signs of infection at your fistula site. ? Keep all follow-up visits. This is important. This information is not intended to replace advice given to you by your health care provider. Make sure you discuss any questions you have with your health care provider. Document Revised: 09/07/2020 Document Reviewed: 09/07/2020 [employer] Patient Education ? 2022 [employer]. Potassium Content of Foods Potassium is a mineral found in many foods and drinks. It can affect how the heart works, affect blood pressure, and keep fluids and electrolytes balanced in the body. It is important not to have too much potassium (hyperkalemia) or too little potassium (hypokalemia) in the body, especially in the blood. Potassium i (more content not included)... Normal [facility] ED Patient Summaryon 023 ED Patient Summary (Inserted Image. Dejah ble to display) [place] [id number] Patient Discharge Instructions Person Information Name: SETH MURPHY Age: 66 Years Arrival Date: 06/29/2022 15:44:02 Discharge Diagnosis: Complication of AV dialysis fistula Primary Care Physician: Nav Alejo MD Provider Information Primary Provider: Reji Azar DO Advanced Rn Labor And Delivery:None The exam and treatment you received in the Emergency Department were for an urgent problem and are not intended as complete care. It is important that you follow up with a doctor, nurse practitioner, or physician?s social research assistant for ongoing care. If your symptoms become worse or you do not improve as expected and you are unable to reach your usual health care provider, you should return to the Emergency Department. We are available 24 hours a day. SETH MURPHY has been given the following list of patient education materials, prescriptions and follow-up instructions: Follow-up Instructions: With: Address: When: Greg Alarcon [address] [place] [address] Business (1) In 3 days 07/02/2022 Comments: Call the office of Dr. Alarcon upon opening on Saturday to arrange for permacath dialysis catheter placement on Saturday. With: Address: When: HILARIO NUNEZ [address] [facility] [place] [place] [address] Business (1) In 3 days 07/02/2022 Comments: Call the office on Saturday and notify them of the issues with your fistula. Ask them to arrange dialysis for you on Saturday. Eat a low potassium diet. Limit your fluid intake. If you become short of breath or begin feeling unwell return to the ED immediately for reevaluation. With: Address: When: Nav Alejo [facility] [facility], [place] [address] Business (1) In 3 days 07/02/2022 Comments: Call the office of your primary care doctor to arrange for follow-up within the above-stated timeframe. Follow-up with your primary care doctor about this ED visit. You should review your labs, imaging, and diagnoses from this ED visit with your primary care physician. There are occasionally non-emergent findings that require additional follow-up after your ED visit. If you were prescribed medications you should discuss possible side-effects and drug interactions with your pharmacist. Call 911 or go to the nearest Emergency Department if you develop any new or worsening symptoms. In the event that this physician does not participate in your insurance network, please consult with your insurance company to find a nearby participating provider. Patient Education Materials: AV Fistula Placement, Care After; Potassium Content of Foods A MESSAGE TO ALL PATIENTS REGARDING OPIOIDS PRESCRIPTION OPIOIDS: WHAT YOU NEED TO KNOW Prescription opioids can be used to help relieve tepvhhdl-go-pylflr pain and are often prescribed following a surgery or injury, or for certain health conditions. These medications can be an important part of the treatment but also come with serious risks. It is important to work with your healthcare provider to make sure you are getting the safest, most effective care. WHAT ARE THE RISKS AND SIDE EFFECTS OF OPIOID USE? Prescription opioids carry serious risks of addiction and overdose, especially with prolonged use. An opioid overdose, often marked by slowed breathing, can cause sudden . The use of prescription opioids can have a number of side effects as well, even when taken as directed: ? Tolerance?meaning you might need to take more of the medication for the same pain relief ? Physical dependence?meaning you have symptoms of withdrawal when a medication is stopped ? Increased sensitivity to pain ? Constipation ? Nausea, vomiting, and dry mouth ? Sleepiness and dizziness ? Confusion ? Depression ? Low levels of testosterone that can result in lower sex drive, energy, and strength ? Itching and sweating RISKS ARE GREATER WITH: ? History of drug misuse, substance use disorder, or overdose ? Mental health conditions (such as depression or anxiety) ? Sleep apnea ? Older age (65 years and older) ? Avoid alcohol while taking prescription opioids. Also, unless specifically advised by your health care provider, medications to avoid include: ? Benzodiazepines (such as Xanax or Valium) ? Muscle relaxants (such as Soma or Flexeril) ? Hypnotics (such as Ambien or Lunesta) ? Other prescription opioids KNOW YOUR OPTIONS Talk to your health care provider about ways to manage your pain that don?t involve prescription opioids. Some of these options may actually work better and have fewer risks and side effects. Options may include: ? Pain relievers such as acetaminophen, ibuprofen, and naproxen ? Some medication that are also used for depression or seizures ? Physical therapy and exercise ? Cognitive b (more content not included)... Normal [facility] AV Fistula/[place] 2022 AV Fistula/Graft Exam Date/Time: 06/29/2022 18:59 EDT Reason for Exam: Not functioning;Other (please specify) Report IMPRESSION: Thrombus within the fistula without associated vascular flow as discussed. 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 Normal functioning until today, unable to use for dialysis. TECHNIQUE: Grayscale, color, and waveform Doppler analysis of a left upper extremity brachiocephalic fistula performed. COMPARISON: 05/10/2020. RESULT: The left brachial artery proximal to the anastomosis appears patent. Arising at the proximal fistula, involving the fistula, and extending to the proximal cephalic vein there is echogenic thrombus without vascular flow. Left subclavian vein and jugular vein appear patent. No flow volumes were obtained given the stat order. Ordering Provider: Reji Azar FINAL REPORT Dictated: 06/29/2022 7:19 pm Loco Perez MD Signed (Electronic Signature): 06/29/2022 7:19 pm Signed by: Loco Perez MD Transcribed by: JASPREET Technologist: FRANSISCA Technical Comments Type of Fistula/Graft: left brachiocephalic Laterality: Left. Normal [facility] eGFRon 06-29-2022 GFR/1.73 sq M.predicted among non-blacks MDRD (S/P/Bld) [Vol rate/Area] 5 mL/min/1.73 m2 Low >=59 [facility] Comment on above: Order Comment: Order added by Discern Expert. Result Comment: Painter Maintenance jm kidney disease could be indicated at eGFR's of less than 60 mL/min/1.73m2. Kidney failure is indicated at less than 15 mL/min/1.73m2. Performed By: #### 1 [id number], [id number] #### [facility] [address] [place] [address] Progress Noteson 05-17-2022 [employer] Supervisor Authentication Interface Message Text EMERGENCY TRIAGE, TREAT AND TRANSPORT (ET3) DOCUMENTATION OF TELEHEALTH VISIT Date / Time: 05/16/20221754 Name: Dedrick Murphy : 1955 SSN: (Not on file) EMS Agency: [facility] [] Verbal consent obtained [...] Completed by: Guicho Angelo DO Normal [facility] [employer] [facility] SYMPTOMATIC COVID-19 ANTIGEN on 05-09-2022 EUA Statement SEE BELOW Normal [facility] Comment on above: Result Comment: This [...] sooner. Performed By: #### C VDAGS #### [facility] [address] [place] [address] Dr. Radha Edward SARS-CoV-2 (COVID-19) RNA IRENE+probe Ql (Unsp spec) Positive Abnormal NEGATIVE [facility] Comment on above: Performed By: #### C VDAGS #### [facility] [address] [place] [address] Dr. Radha Edward CHEMISTRYOrdered By: SYSTEM SYSTEM on 03-15-2022 Anion gap [Moles/Vol] 16 mmol/L Normal 6 - 16 mEq/L [facility] Rem[facility] Calcium [Mass/Vol] 9.3 mg/dL Normal 8.9 - 11. 1 mg/dL [facility] Chloride [Moles/Vol] 93 mmol/L Low 101 - 1 11 mmol/L [facility] CO2 [Moles/Vol] 28 mmol/L Normal 21 - 31 mmol/L [facility] Creatinine [Mass/Vol] 7.2 mg/dL High 0.5 - 1.3 mg/dL FT Remisol GFR/1.73 sq M.predicted among blacks MDRD (S/P/Bld) [Vol rate/Area] 9 mL/min/1.73 m2 Low >=59mL/min /1.73 m2 FT Chem S GFR/1.73 sq M.predicted among non-blacks MDRD (S/P/Bld) [Vol rate/Area] 8 mL/min/1.73 m2 Low >=59mL/min /1.73 m2 FT Chem S Glucose [Mass/Vol] 198 mg/dL Normal 55 - 199 mg/dL FT Remisol Potassium [Moles/Vol] 3.6 mmol/L Normal 3.5 - 5.3 mmol/L [facility] Remisol Sodium [Moles/Vol] 133 mmol/L Low 135 - 145 mmol/L [facility] Remisol Urea nitrogen [Mass/Vol] 17 mg/dL Normal 5 - 21 mg/dL [facility] Remisol Urea nitrogen/Creatinine [Mass ratio] 2 mg/mg Low 10 - 20 [facility] Remisol HEMATOLOGYOrdered By: SYSTEM SYSTEM on 03-15-2022 Basophils/100 WBC (Bld) 1.2 % Normal 0.0 - 2.0 % [facility] HemeAutoSS Basophils/Leukocytes Auto (Bld) [Pure # fraction] 0.1 E9/L Normal 0.0 - 0.2 E9/L [facility] HemeAutoSS Eosinophils/100 WBC (Bld) 2.9 % Normal 0.0 - 8.0 % [facility] HemeAutoSS Eosinophils/Leukocytes Auto (Bld) [Pure # fraction] 0.2 E9/L Normal 0.0 - 0.5 E9/L [facility] HemeAutoSS Lymphocytes/100 WBC (Bld) 16.1 % Normal 14.0 - 50.0 % [facility] HemeAutoSS Lymphocytes/Leukocytes Auto (Bld) [Pure # fraction] 0.9 E9/L Low 1.0 - 4.0 E9/L [facility] HemeAutoSS Monocytes/100 WBC (Bld) 15.1 % High 4.0 - 14.0 % [facility] HemeAutoSS Monocytes/Leukocytes Auto (Bld) [Pure # fraction] 0.8 E9/L Normal 0.2 - 1.0 E9/L [facility] HemeAutoSS Neutrophils/100 WBC (Bld) 64.7 % Normal 36.0 - 75.0 % [facility] HemeAutoSS Neutrophils/Leukocytes Auto (Bld) [Pure # fraction] 3.5 E9/L [...] Result Comment: Slid e reviewed by cmk. XR FOOT MAGEN MIN 3 VIEWSon XR FOOT MAGEN MIN 3 VIEWS EXAMINATION: XR FOOT MAGEN MIN 3 VIEWS HISTORY: Pain in both [...] by: NATHEN LUCIA Date: 2022-02-15 11:[address] [facility] CULTURE WOUNDon 01-15-2022 CULTURE WOUND Culture Observations [...] <=0.25 S F Clindamycin <=0.25 S F Quinupristin/Dalfopristin <=0.25 S F Linezolid 2 S F Vancomycin 1 S F Tetracycline <=1 S F Rifampicin <=0.5 S F Trimethoprim/Sulfamethoxaz ole <=10 S F Oxacillin >=4 R F ORGANISM 1 Proteus mirabilis ANTIBIOTIC M.I.C RX STATUS Ampicillin <=2 S F Ampicillin/Sulbactam <=2 S F Piperacillin/Tazobactam <=4 S F Cefazolin <=4 S F Ceftazidime <=1 S F Ceftriaxone <=1 S F Ertapenem <=0.5 S F Imipenem 2 S F Amikacin <=2 S F Gentamicin <=1 S F Tobramycin <=1 S F Ciprofloxacin <=0.25 S F Levofloxacin <=0.12 S F Trimethoprim/Sulfamethoxaz ole <=20 S F ORGANISM 3 Escherichia coli ANTIBIOTIC M.I.C RX STATUS Ampicillin <=2 S F Ampicillin/Sulbactam <=2 S F Piperacillin/Tazobactam <=4 S F Cefazolin <=4 S F Ceftazidime <=1 S F Ceftriaxone <=1 S F Ertapenem <=0.5 S F Imipenem <=0.25 S F Amikacin <=2 S F Gentamicin <=1 S F Tobramycin <=1 S F Ciprofloxacin <=0.25 S F Levofloxacin <=0.12 S F Trimethoprim/Sulfamethoxaz ole <=20 S F Normal [facility] Comment on above: Performed By: #### W OUNDCX #### [facility] [address] [place] [address] Dr. Radha Edward Office Visit (Cardiology)on 01-11-2022 Follow-up visit Diagnoses/Problems Assessed Arteriosclerotic heart disease (414.00) (I25.10) History of PTCA (V45.82) (Z98.61) History of acute anterior wall WA (412) (I25.2) Class 1 obesity with body [...] Follow up in 1 year Chief Complaint SETH MURPHY is being seen for a 6 [...] He has a history of ASHD with TREE PRUNER intervention of the LAD in April 2018 [...] Heparin (Porcine) in NaCl 1000-0.9 UT/500ML-% Intravenous [id number] units every dialysis loading dose Levothyroxine Sodium [...] Recorded: 11Jan2022 11:29AM Heart Rate80, L Radial Aipkbnde38, RUE, Sitting Vftiwogsf39, RUE, Sitting Height5 ft 10 in Abunub830 lb BMI Ybsyvecfuj07.71 kg/m2 BSA Calculated2.21 Tobacco Useb) No Falls [...] content not included)... Normal [employer] Tobacco Screening.on Fall risk assessment a) No falls within the last year -[facility] [address] DO Work Phone: Tobacco use status CPHS b) No [facility] [address] DO Work Phone: CBC AUTO DIFFon 08-28-2021 BASO # 0.0 103/ul Normal 0.0-0.[address] [facility] Comment on above: Performed By: #### C BC #### [facility] [address] [place] [address] Dr. Radha Edward Basophils/100 WBC (Bld) 0.6 % Normal 0.2-2.[address] [facility] Comment on above: Performed By: #### C BC #### [facility] [address] [place] [address] Dr. Radha Edward EO # 0.1 103/ul Normal 0.0-0.7 [facility] Comment on above: Performed By: #### C BC #### [facility] [address] [place] [address] Dr. Radha Edward Eosinophils/100 WBC (Bld) 1.7 % Normal 0.9-7.[address] [facility] Comment on above: Performed By: #### C BC #### [facility] [address] [place] [address] Dr. Radha Edward Erythrocyte distribution width (RBC) [Ratio] 14.5 % Normal 11.0-15.0 [facility] Comment on above: Performed By: #### C BC #### [facility] [address] [place] [address] Dr. Radha Edward Hematocrit (Bld) [Volume fraction] 34.0 % Critically low 42.0-54.[address] [facility] Comment on above: Performed By: #### C BC #### [facility] [address] [place] [address] [address] Radha Edward Hemoglobin (Bld) [Mass/Vol] 11.1 g/dL Critically low 14.0-18.[address] [facility] Comment on above: Performed By: #### C BC #### [facility] [address] [place] [address] [address] Radha Edward IG # 0.02 10e3/ul Normal 0.00-0.[address] [facility] Comment on above: Performed By: #### C BC #### [facility] [address] [place] [address] Dr. Radha Edward IG % 0.4 % Normal 0.0-0.[address] [facility] Comment on above: Performed By: #### C BC #### [facility] [address] [place] [address] Dr. Radha Edward LYMPH # 1.0 103/ul Critically low 1.2-3.8 [facility] Comment on above: Performed By: #### C BC #### [facility] [address] [place] [address] Dr. Radha Edward Lymphocytes/100 WBC (Bld) 18.6 % Critically low 20.5-60.[address] [facility] Comment on above: Performed By: #### C BC #### [facility] [address] [place] [address] Dr. Radha Edward MANUAL DIFF REQ NO Normal [facility] Comment on above: Performed By: #### C BC #### [facility] [address] [place] [address] Dr. Radha Edward MCH (RBC) [Entitic mass] 30.5 pg Normal 25.9-34.[address] [facility] Comment on above: Performed By: #### C BC #### [facility] [address] [place] [address] Dr. Radha Edward MCHC (RBC) [Mass/Vol] 32.6 g/dL Normal 29.9-35.[address] [facility] Comment on above: Performed By: #### C BC #### [facility] [address] [place] [address] [address] Radha Edward MCV (RBC) [Entitic vol] 93.4 fL Normal 80.0-94.[address] [facility] Comment on above: Performed By: #### C BC #### [facility] [address] [place] [address] [address] Radha Edward MONO # 0.8 103/ul Normal 0.3-0.[address] [facility] Comment on above: Performed By: #### C BC #### [facility] [address] [place] [address] [address] Radha Edward Monocytes/100 WBC (Bld) 15.1 % Critically high 1.7-12.[address] [facility] Comment on above: Performed By: #### C BC #### [facility] [address] [place] [address] [address] Radha Edward NEUT # 3.5 103/ul Normal 1.4-6.[address] [facility] Comment on above: Performed By: #### C BC #### [facility] [address] [place] [address] [address] Radha Edward Neutrophils/100 WBC (Bld) 63.6 % Normal 43.0-75.[address] [facility] Comment on above: Performed By: #### C BC #### [facility] [address] [place] [address] [address] Radha Edward Platelet mean volume (Bld) [Entitic vol] 9.8 fL Normal 9.5-13.[address] [facility] Comment on above: Performed By: #### C BC #### [facility] [address] [place] [address] [address] Radah Edward PLT 156 103/ul Normal 150-450 [facility] Comment on above: Performed By: #### C BC #### [facility] [address] [id number] Radha Edward RBC 3.64 106/ul Critically low 4.70-6.10 [facility] Comment on above: Performed By: #### C BC #### [facility] [address] [place] [address] Dr. Radha Edward WBC 5.4 103/ul Normal 4.0-11.[address] [facility] Comment on above: Performed By: #### C BC #### [facility] [address] [place] [address] Dr. Radha Edward PROF 14(COMP METB)on 022 Albumin [Mass/Vol] 3.6 g/dL Normal 3.4-5.0 [facility] Comment on above: Performed By: #### C MP, TSH, HSTROPN #### [facility] [address] [place] [address] Dr. Radha Edward Albumin/Globulin [Mass ratio] 0.9 {ratio} Normal [facility] Comment on above: Performed By: #### C MP, TSH, HSTROPN #### [facility] [address] [place] [address] Dr. Radha Edward ALP [Catalytic activity/Vol] 135 U/L Critically high 46-[address] [facility] Comment on above: Performed By: #### C MP, TSH, HSTROPN #### [facility] [address] [place] [address] Dr. Radha Edward ALT [Catalytic activity/Vol] 21 U/L Normal 16-[address] [facility] Comment on above: Performed By: #### C MP, TSH, HSTROPN #### [facility] [address] [place] [address] Dr. Radha Edward Anion gap [Moles/Vol] 13.6 mmol/L Normal [facility] Comment on above: Performed By: #### C MP, TSH, HSTROPN #### [facility] [address] [place] [address] Dr. Radha Edward AST [Catalytic activity/Vol] 14 U/L Critically low 15-[address] [facility] Comment on above: Performed By: #### C MP, TSH, HSTROPN #### [facility] [address] [place] [address] Dr. Radha Edward Bilirubin [Mass/Vol] 0.6 mg/dL Normal 0.2-1.[address] [facility] Comment on above: Performed By: #### C MP, TSH, HSTROPN #### [facility] [address] [place] [address] [address] Radha Edward Calcium [Mass/Vol] 9.1 mg/dL Normal 8.5-10.1 [facility] Comment on above: Performed By: #### C MP, TSH, HSTROPN #### [facility] [address] [address] [address] Radha Edward Chloride [Moles/Vol] 95 mmol/L Critically low 98-[address] [facility] Comment on above: Performed By: #### C MP, TSH, HSTROPN #### [facility] [address] [place] [address] Dr. Radha Edward CO2 [Moles/Vol] 29.8 mmol/L Normal 21.0-32.0 [facility] Comment on above: Performed By: #### C MP, TSH, HSTROPN #### [facility] [address] [place] [address] Dr. Radha Edward Creatinine [Mass/Vol] 5.55 mg/dL Critically high 0.70-1.[address] [facility] Comment on above: Performed By: #### C MP, TSH, HSTROPN #### [facility] [address] [place] [address] Dr. Radha Edward EGFR-AF GREENLANDIC 13 mL/min/1.73m2 Critically low >=60 [facility] Comment on above: Performed By: #### C MP, TSH, HSTROPN #### [facility] [address] [place] [address] Dr. Radha Edward EGFR-NON AF GREENLANDIC 10 mL/min/1.73m2 Critically low >=[address] [facility] Comment on above: Performed By: #### C MP, TSH, HSTROPN #### [facility] [address] [address] [address] Radha Edward Globulin (S) [Mass/Vol] 3.9 g/dL Normal [facility] Comment on above: Performed By: #### C MP, TSH, HSTROPN #### [facility] [address] [address] [address] Radha Edward Glucose [Mass/Vol] 164 mg/dL Critically high 74-[address] [facility] Comment on above: Performed By: #### C MP, TSH, HSTROPN #### [facility] [address] [address] [address] Radha Edward Potassium [Moles/Vol] 3.4 mmol/L Critically low 3.5-5.[address] [facility] Comment on above: Performed By: #### C MP, TSH, HSTROPN #### [facility] [address] [place] [address] Dr. Radha Edward Protein [Mass/Vol] 7.5 g/dL Normal 6.4-8.2 [facility] Comment on above: Performed By: #### C MP, TSH, HSTROPN #### [facility] [address] [place] [address] Dr. Radha Edward Sodium [Moles/Vol] 135 mmol/L Critically low 136-145 [facility] Comment on above: Performed By: #### C MP, TSH, HSTROPN #### [facility] [address] [place] [address] Dr. Radha Edward Urea nitrogen [Mass/Vol] 13.0 mg/dL Normal 7.0-18.[address] [facility] Comment on above: Performed By: #### C MP, TSH, HSTROPN #### [facility] [address] [place] [address] Dr. Radha Edward Urea nitrogen/Creatinine [Mass ratio] 2.3 mg/mg Normal [facility] Comment on above: Performed By: #### C MP, TSH, HSTROPN #### [facility] [address] [place] [address] Dr. Radha Edward TROPONIN, HIGH SENSITIVITYon 08-28-2021 HSTROP 11.8 pg/mL Normal 4.0-76.[address] [facility] Comment on above: Result Comment: CUT- OFF POINTS HAVE BEEN ESTABLISHED BASED ON THE FOURTH UNIVERSAL DEFINITIONS OF MYOCARDIAL INFARCTION. THE UPPER REFERENCE LIMIT (URL) OF TROPONIN, DEFINED THE 99TH PERCENTILE OF cTnI DISTRIBUTION IN A REFERENCE POPULATION, HAS BEEN CONFIRMED THE DECISION THRESHOLD FOR WA DIAGNOSIS. Performed By: #### C MP, TSH, HSTROPN #### [facility] [address] [place], [place] [address] Dr. Radha Edward TSHon 08-28-2021 TSH 0.749 uIU/mL Normal 0.358-3.[address] [facility] Comment on above: Performed By: #### C MP, TSH, HSTROPN #### [facility] [address] [place], [place] [address] Dr. Radha Edward XR CHEST 1 Von 08-28-2021 XR CHEST 1 V CHEST X-RAY, 1 VIEW HISTORY: Bradycardia. Chest pain. COMPARISON: 09/01/2019. FINDINGS: The cardiac silhouette is enlarged. Left hemidiaphragm is elevated. The lungs are grossly clear. There are no pleural effusions. There is no pneumothorax. IMPRESSION: No evidence of acute cardiopulmonary disease. Electronically authenticated by: CHRISTIANNE MELVIN Date: 2021-08-28 18:59 Normal [facility] Office Visit (Cardiology)on 07-13-2021 Follow-up visit [...] the time of your visit. Chief Complaint SETH MURPHY is being seen for a 6 month follow-up of. Patient is a 65-year-old gentleman returns for follow-up he is doing well he is still ambulatory with wheelchair and walker following and is prolonged and severe COVID illness in 2019. He underwent anterior WA with PCI chronic total occlusion of the proximal through mid LAD x2 drug-eluting stents in March 2018; follow-up echocardiogram revealed low normal left ventricular function with ejection fraction of 50% in September 2018. In March 2020 he underwent COVID infection with prolonged intubation and hospitalization in [place] with multiorgan failure details of which have [...] Heparin (Porcine) in NaCl 1000-0.9 UT/500ML-% Intravenous Uqgnakix0092 unitts every dialysis loading dose hydrALAZINE HCl [...] Recorded: 13Jul2021 11:47AM Heart Rate66, R Radial Nmidzbsb952, RUE, Sitting Vhylpogpt61, RUE, Sitting Height5 ft 10 in Pwijbn013 lb BMI Tqtdqjdnwm21.14 kg/m2 BSA Calculated2.19 Tobacco Useb) No PHQ-2 [...] time . Signatures Electronically signed by : Seth Ying DO; Jul 13 2021 12:27PM EST (Author) Normal [employer] Tobacco Screening.on 022 Adult depression screening assessment No [facility] [address] [place] Work Phone: Fall risk assessment a) No falls within the last year [facility] [address] DO Work Phone: Tobacco use status [facility] b) [facility] [address] DO Work Phone: Echocardiogramon 10-20-[address], [address], [place] [address] TRANSTHORACIC ECHOCARDIOGRAM REPORT Patient Name: SETH Bowers Physician: [id number] Alfredo Saravia DO Study Date: 10/20/2020 Referring [id number] SETH YING Physician: MRN/PID: [id number] PCP: Nav Alejo Accession/Order#: [id number] [facility] Location: [place] Date of : 1955 Fellow: Gender: M Nurse: Admit Date: Chaperon: Deena Adams RDCS, RVT Height: 177.80 cm CC Report to: Marina Agudelo Weight: 103.42 kg Study Type: Echocardiogram BSA: 2.21 m2 Diagnosis/ICD: I25.10-Atherosclerotic heart disease of [place] coronary artery without angina pectoris; I25.5-Ischemic cardiomyopathy Indication: Diabetes, HTN, CKD-End Stage-On Hemodialysis, History of DVT, Obesity, COVID Procedure/CPT: Echo Complete w Full [id number] Study Detail: The following Echo studies were [...] AoV Mean P.0 mmHg (1.7-11.5mmHg) LVOT Max Gogo: 1.11 m/s (<1.1m/s) AoV VTI: 25.50 cm (18-25cm) LVOT VTI: 24.70 cm LVOT Diameter: 2.80 cm (1.8-2.4cm) AoV Area, VTI: 5.96 cm2 (2.5-5.5cm2) AoV Area,Vmax: 5.51 cm2 (2.5-4.5cm2) AoV Dimensionless Index: 0.97 TRICUSPID VALVE/RVSP: Normal Ranges: Peak TR Velocity: 2.78 m/s RV Syst Pressure: 33.9 mmHg (< 30mmHg) PULMONIC VALVE: Normal Ranges: PV Max Gogo: 0.9 m/s (0.6-0.9m/s) PV Max P.4 mmHg [id number] Alfredo Saravia Electronically signed on 10/20/2020 at 4:08:28 PM Final [facility] PROGRESSon 08-27-2019 PROGRESS HNO ID: [id number] Author: Diane Chacon) Abdullahi Service: ? Author Type: Physician Orthopedic Specialist Type: Progress Notes Filed: 08/28/2019 10:29 AM Note Text: [facility] NOTE NAME: CHRISTY MURPHY NO.: [id number] DATE OF SERVICE: 08/27/2019 [facility] DATE OF : 1955 CHIEF COMPLAINT: Followup for discharge. SUBJECTIVE FINDINGS: The patient was seen in his room at [facility] lying in bed. I remained greater [...] DICTATED BY: Diane Lerner PA-C PG/Meagan JOB# [id number] cc:Toña Barker Normal [facility] PROGRESSon 08-07-2019 PROGRESS HNO ID: [id number] Author: Diane Lerner (Pa) Service: ? Author Type: Physician Orthopedic Specialist Type: Progress Notes Filed: 08/11/2019 6:39 AM Note Text: [facility] NOTE NAME: CHRISTY MURPHY NO.: [id number] DATE OF SERVICE: 08/07/2019 Toña Barker DATE OF : 1955 USP CHART VISIT NOTE CHIEF COMPLAINT: Followup for end-stage renal disease, weakness, and other medical issues. SUBJECTIVE FINDINGS: The patient was seen in his room at [facility] lying in bed. I remained greater [...] ongoing therapies. DICTATED BY: Diane Lerner PA-C PG/Acjanis JOB# [id number] cc:[facility] PROGRESSon 07-29-2019 PROGRESS HNO ID: [id number] Author: Diane Lerner (Pa) Service: ? Author Type: Physician Orthopedic Specialist Type: Progress Notes Filed: 07/30/2019 12:39 PM Note Text: [facility] NAME: CHRISTY MURPHY NO.: [id number] DATE OF SERVICE: 07/29/2019 [facility] DATE OF : 1955 CHIEF COMPLAINT: Follow up for end-stage renal disease, weakness, and other medical issues. SUBJECTIVE FINDINGS: The patient was seen in his room at [facility] sitting up in his wheelchair. I [...] DICTATED BY: Diane Lerner PA-C PG/Meagan JOB# [id number] cc:[facility] PROGRESSon 07-27-2019 PROGRESS HNO ID: [id number] Author: Saad Ahumada Service: ? Author Type: Physician Type: Progress Notes Filed: 07/29/2019 5:29 PM Note Text: [facility] NOTE NAME: CHRISTY MURPHY NO.: [id number] DATE OF SERVICE: 07/27/2019 Toña Barker DATE [...] mechanical ventilation. No history of COPD or emphysema/asthma/bronchiti s. No prior smoking history. He apparently did [...] family. DICTATED BY: MD FLAKITO White/Meagan JOB# [id number] cc:[facility] PROGRESSon 07-16-2019 PROGRESS HNO ID: [id number] Author: Diane Chacon) Abdullahi Service: ? Author Type: Physician Orthopedic Specialist Type: Progress Notes Filed: 07/17/2019 11:59 AM Note Text: [facility] NAME: CHRISTY MURPHY NO.: [id number] DATE OF SERVICE: 07/16/2019 [facility] DATE OF : 1955 USP CHART VISIT NOTE CHIEF COMPLAINT: Followup for potential discharge. SUBJECTIVE FINDINGS: The patient was seen in his room at [facility] sitting up in his wheelchair. 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 3. [...] DICTATED BY: Diane Lerner PA-C PG/Meagan JOB# [id number] cc:Toña Barker [facility] PROGRESSon 07-13-2019 PROGRESS HNO ID: [id number] Author: Diane Lerner (Pa) Service: ? Author Type: Physician Orthopedic Specialist Type: Progress Notes Filed: 07/14/2019 2:18 PM Note Text: [facility] NAME: CHRISTY MURPHY NO.: [id number] DATE OF SERVICE: 07/13/2019 Toña Barker DATE OF : 1955 USP CHART VISIT NOTE CHIEF COMPLAINT: Skilled followup visit for end-stage renal disease, coronary artery disease, and other medical issues. SUBJECTIVE FINDINGS: The patient was seen in his room at [facility] for a skilled followup visit. I [...] We will ask staff to contact his stock clerk's office to clarify the aspirin dose. 3. [...] DICTATED BY: Diane Lerner PA-C PG/Meagan JOB# [id number] cc:[facility] PROGRESSon 07-09-2019 PROGRESS HNO ID: [id number] Author: Diane Lerner (Pa) Service: ? Author Type: Physician Orthopedic Specialist Type: Progress Notes Filed: 07/13/2019 10:19 AM Note Text: [facility] NAME: SETH MURPHYJOSE NO.: [id number] DATE OF SERVICE: 07/09/2019 [facility] DATE OF : 1955 CHIEF COMPLAINT: Skilled followup visit for coronary artery disease, renal disease, and other medical issues. SUBJECTIVE FINDINGS: The patient was seen in his room at [facility] for skilled followup visit. I remained greater than 6 feet away from him for the evaluation due to the COVID-19 pandemic. The patient had been refusing heparin as he related that this was uncomfortable and that he was bleeding after administration. He is on longstanding Effient as ordered by Cardiology and has a history of stents. He follows with Dr. Ying in [place]. In addition, his current aspirin dose is [...] DICTATED BY: Diane Lerner PA-C PG/Meagan JOB# [id number] cc:[facility] PROGRESSon 07-01-2019 PROGRESS HNO ID: [id number] Author: Diane Lerner (Pa) Service: ? Author Type: Physician Orthopedic Specialist Type: Progress Notes Filed: 07/03/2019 7:47 AM Note Text: [facility] NAME: CHRISTY MURPHY NO.: [id number] DATE OF SERVICE: 07/01/2019 [facility] DATE OF : 1955 USP CHART VISIT NOTE CHIEF COMPLAINT: Venous stasis of the legs, weakness, and other medical issues. SUBJECTIVE FINDINGS: The patient was seen in his room at [facility] for skilled followup visit. I remained [...] DICTATED BY: Diane Lerner PA-C PG/Meagan JOB# [id number] cc:[facility] PROGRESSon 06-26-2019 PROGRESS HNO ID: [id number] Author: Diane Lerner (Pa) Service: ? Author Type: Physician Orthopedic Specialist Type: Progress Notes Filed: 06/29/2019 12:17 PM Note Text: [facility] NAME: CHRISTY MURPHY NO.: [id number] DATE OF SERVICE: 06/26/2019 [facility] DATE OF : 1955 USP CHART VISIT NOTE CHIEF COMPLAINT: Followup for renal disease, type 2 diabetes mellitus, and other medical issues. SUBJECTIVE FINDINGS: The patient was seen in his room sitting up in his wheelchair at [facility]. I remained greater than 6 feet [...] DICTATED BY: Diane Lerner PA-C PG/Meagan JOB# [id number] cc:Toña Barker [facility] PROGRESSon 06-18-2019 PROGRESS HNO ID: [id number] Author: Diane Lerner (Pa) Service: ? Author Type: Physician Orthopedic Specialist Type: Progress Notes Filed: 06/19/2019 1:37 PM Note Text: [facility] NAME: CHRISTY MURPHY NO.: [id number] DATE OF SERVICE: 06/18/2019 Toña Barker DATE OF : 1955 USP CHART VISIT NOTE CHIEF COMPLAINT: Follow up for end-stage renal disease, type 2 diabetes mellitus, weakness, and other medical issues. SUBJECTIVE FINDINGS: The patient was seen in his room sitting up in his wheelchair at [facility]. I remained greater than 6 feet [...] intense physical and occupational therapy. DICTATED BY: MARIANN Waterman JOB# [id number] cc:[facility] PROGRESSon 06-16-2019 PROGRESS HNO ID: [id number] Author: Diane Chacon) Abdullahi Service: ? Author Type: Physician Orthopedic Specialist Type: Progress Notes Filed: 06/17/2019 3:57 PM Note Text: [facility] NAME: CHRISTY MURPHY NO.: [id number] DATE OF SERVICE: 06/16/2019 [facility] DATE OF : 1955 CHIEF COMPLAINT: Skilled followup visit for type 2 diabetes mellitus, renal disease, and other medical issues. SUBJECTIVE FINDINGS: The patient was seen in his room lying in bed at [facility]. I remained greater than 6 feet [...] pulse oximetry 96%. Examination revealed an obese, [id number]-[id number] male lying in bed. He was in [...] DICTATED BY: Diane Lerner PA-C PG/Meagan JOB# [id number] cc:Toña Barker [facility] PROGRESSon 06-15-2019 PROGRESS HNO ID: [id number] Author: Saad Ahumada Service: ? Author Type: Physician Type: Progress Notes Filed: 06/18/2019 4:17 PM Note Text: [facility] NAME: SETH MURPHYJOSE NO.: [id number] DATE OF SERVICE: 06/15/2019 Toña Barker DATE OF : 1955 NEW PATIENT HISTORY AND PHYSICAL HISTORY OF PRESENT ILLNESS: The patient is a 63-year-old male who was admitted to us from [facility] with the diagnosis of acute hypoxemic respiratory [...] hospital with fever and increasing malaise. At [facility], he was treated for congestive heart failure exacerbation and bacterial pneumonia with antibiotics. However, his condition worsened requiring intubation, after which he was transferred to [facility] Intensive Care Unit where he was [...] possible. DICTATED BY: MD FLAKITO White/Meagan JOB# [id number] cc:[facility] Operative Reporton 0 Operative Report MR#: [id number] S [facility] Pt. Name: Seth Murphy Room #: D5 Discharge Date: Birthdate: [...] patient was consented and brought to the rn labor and delivery. The patient was placed in supine position. [...] and the tubing of the PermCath size 14.5-Vincentian x 24 cm was tunneled starting with [...] Amaro MD Date Trans: 06/04/2019 01:35 P/mmo [id number] cc: Nav Alejo M.D. [address] [facility] [id number] [facility] Vital Signs Date Time Vital Sign Value Performing Clinician Facility 09-02-2023 16:25-0400 Respiratory rate 18 /min MD Nav Alejo Work Phone: [facility] 09-02-2023 15:29-0400 Body temperature 98.4 [degF] MD Nav Alejo Work Phone: [facility] 09-02-2023 15:29-0400 Diastolic blood pressure 80 mm[Hg] MD Nav Alejo Work Phone: [facility] 09-02-2023 15:29-0400 Heart rate 61 /min MD Nav Alejo Work Phone: [facility] 09-02-2023 15:29-0400 SaO2% (BldA) [Mass fraction] 96 % MD Nav Alejo Work Phone: [facility] 09-02-2023 15:29-0400 Systolic blood pressure 135 mm[Hg] MD Nav Alejo Work Phone: [facility] 09-02-2023 05:28-0400 Body weight 100.1 kg MD Nav Alejo Work Phone: [facility] 08-29-2023 13:56-0400 Body height 180.34 cm MD Nav Alejo Work Phone: [facility] 06-26-2023 14:04-0400 Body temperature 98.8 [degF] MD Nav Alejo Work Phone: [facility] 06-26-2023 14:04-0400 Diastolic blood pressure 72 mm[Hg] MD Nav Alejo Work Phone: [facility] 06-26-2023 14:04-0400 Respiratory rate 18 /min MD Nav Alejo Work Phone: [facility] 06-26-2023 14:04-0400 SaO2% (BldA) [Mass fraction] 96 % MD Nav Alejo Work Phone: [facility] 06-26-2023 14:04-0400 Systolic blood pressure 122 mm[Hg] MD Nav Alejo Work Phone: [facility] 06-26-2023 13:55-0400 Heart rate 42 /min MD Nav Alejo Work Phone: [facility] 06-26-2023 05:53-0400 Body weight 97.5 kg MD Nav Alejo Work Phone: [facility] 06-25-2023 12:27-0400 Inhaled oxygen flow rate 8 L/min MD Nav Alejo Work Phone: [facility] 06-25-2023 10:25-0400 Body height 177.8 cm MD Nav Alejo Work Phone: [facility] 06-25-2023 10:25-0400 Body mass index (BMI) [Ratio] 29.5 kg/m2 MD Nav Alejo Work Phone: [facility] 06-21-2023 21:58-0400 Body temperature 99.9 [degF] MD Nav Alejo Work Phone: [facility] 06-21-2023 21:58-0400 Diastolic blood pressure 52 mm[Hg] MD Nav Alejo Work Phone: [facility] 06-21-2023 21:58-0400 Heart rate 84 /min MD Nav Alejo Work Phone: [facility] 06-21-2023 21:58-0400 Respiratory rate 16 /min MD Nav Alejo Work Phone: [facility] 06-21-2023 21:58-0400 SaO2% (BldA) [Mass fraction] 100 % MD Nav Alejo Work Phone: [facility] 06-21-2023 21:58-0400 Systolic blood pressure 100 mm[Hg] MD Nav Alejo Work Phone: [facility] 06-21-2023 18:28-0400 Body height 177.8 cm MD Nav Alejo Work Phone: [facility] 06-21-2023 18:28-0400 Body weight 92.6 kg MD Nav Alejo Work Phone: [facility] 05-09-2023 13:12-0400 Body height 177.8 cm MD Nav Alejo Work Phone: [facility] 05-09-2023 13:12-0400 Body mass index (BMI) [Ratio] 36.4 kg/m2 MD Nav Alejo Work Phone: [facility] 05-09-2023 13:12-0400 Body temperature 97.3 [degF] MD Nav Alejo Work Phone: [facility] 05-09-2023 13:12-0400 Body weight 115.21 kg MD Nav Alejo Work Phone: [facility] 05-09-2023 13:12-0400 Diastolic blood pressure 69 mm[Hg] MD Nav Alejo Work Phone: [facility] 05-09-2023 13:12-0400 Heart rate 69 /min MD Nav Alejo Work Phone: [facility] 05-09-2023 13:12-0400 Systolic blood pressure 98 mm[Hg] MD Nav Alejo Work Phone: [facility] 04-16-2023 08:21-0500 Body temperature 98.3 [degF] MD Nav Alejo Work Phone: [facility] 04-16-2023 08:21-0500 Diastolic blood pressure 71 mm[Hg] MD Nav Alejo Work Phone: [facility] 04-16-2023 08:21-0500 Heart rate 85 /min MD Nav Alejo Work Phone: [facility] 04-16-2023 08:21-0500 Respiratory rate 18 /min MD Nav Alejo Work Phone: [facility] 04-16-2023 08:21-0500 SaO2% (BldA) [Mass fraction] 96 % MD Nav Alejo Work Phone: [facility] 04-16-2023 08:21-0500 Systolic blood pressure 135 mm[Hg] MD Nav Alejo Work Phone: [facility] 04-16-2023 06:00-0500 Body weight 115.6 kg MD Nav Alejo Work Phone: [facility] 04-15-2023 15:06-0500 Body height 177.8 cm MD Nav Alejo Work Phone: [facility] 01-31-2023 09:47-0500 Body height 177.8 cm Seth Ying DO Work Phone: [facility] 01-31-2023 09:47-0500 Body mass index (BMI) [Ratio] 29.41 kg/m2 Seth Ying DO Work Phone: [facility] 01-31-2023 09:47-0500 Body weight 92.99 kg Seth Ying DO Work Phone: [facility] 01-31-2023 09:47-0500 Diastolic blood pressure 62 mm[Hg] Seth Ying DO Work Phone: [facility] 01-31-2023 09:47-0500 Heart rate 76 /min Seth Ying DO Work Phone: [facility] 01-31-2023 09:47-0500 Systolic blood pressure 122 mm[Hg] Seth Ying DO Work Phone: [facility] 08-09-2022 14:15-0400 Body height 180.34 cm Alfredo Acosta Other [employer] Other 08-09-2022 14:15-0400 Body mass index (BMI) [Ratio] 28.73 kg/m2 Alfredo Acosta Other [employer] Other 08-09-2022 14:15-0400 Body temperature 97.3 [degF] Alfredo Acosta Other [employer] Other 08-09-2022 14:15-0400 Body weight 93.44 kg Alfredo Acosta Other [employer] Other 08-09-2022 14:15-0400 Diastolic blood pressure 62 mm[Hg] Alfredo Acosta Other [employer] Other 08-09-2022 14:15-0400 Systolic blood pressure 99 mm[Hg] Alfredo Acosta Other [employer] Other 07-30-2022 09:03-0400 Blood Pressure Location Greg Alarcon [facility] 07-30-2022 09:03-0400 Diastolic blood pressure 60 mm[Hg] Greg Alarcon [facility] 07-30-2022 09:03-0400 Heart rate 77 /min Greg Alarcon [facility] 07-30-2022 09:03-0400 SaO2% (BldA) [Mass fraction] 98 % rGeg Alarcon [facility] 07-30-2022 09:03-0400 Systolic blood pressure 110 mm[Hg] Greg Alarcon [facility] 07-12-2022 13:24-0400 Blood Pressure Location Greg Alarcon [facility] 07-12-2022 13:24-0400 Diastolic blood pressure 62 mm[Hg] Greg Alarcon [facility] 07-12-2022 13:24-0400 Heart rate 94 /min Greg Alarcon [facility] 07-12-2022 13:24-0400 SaO2% (BldA) [Mass fraction] 97 % Greg Alarcon [facility] 07-12-2022 13:24-0400 Systolic blood pressure 94 mm[Hg] Greg Alarcon [facility] 07-09-2022 19:00-0400 Diastolic blood pressure 65 mm[Hg] [facility] 07-09-2022 19:00-0400 Heart rate 74 /min [facility] 07-09-2022 19:00-0400 Mean blood pressure 80 mm[Hg] [facility] 07-09-2022 19:00-0400 Respiratory rate 17 /min [facility] 07-09-2022 19:00-0400 Systolic blood pressure 110 mm[Hg] [facility] 07-09-2022 18:30-0400 Heart rate 75 /min [facility] 07-09-2022 18:30-0400 Respiratory rate 23 /min [facility] 07-09-2022 18:00-0400 Diastolic blood pressure 60 mm[Hg] [facility] 07-09-2022 18:00-0400 Heart rate 79 /min [facility] 07-09-2022 18:00-0400 Mean blood pressure 73 mm[Hg] [facility] 07-09-2022 18:00-0400 Respiratory rate 11 /min [facility] 07-09-2022 18:00-0400 SaO2% (BldA) [Mass fraction] 96 % [facility] 07-09-2022 18:00-0400 Systolic blood pressure 98 mm[Hg] [facility] 07-09-2022 17:30-0400 Diastolic blood pressure 55 mm[Hg] [facility] 07-09-2022 17:30-0400 Mean blood pressure 67 mm[Hg] [facility] 07-09-2022 17:30-0400 SaO2% (BldA) [Mass fraction] 98 % [facility] 07-09-2022 17:30-0400 Systolic blood pressure 90 mm[Hg] [facility] 07-09-2022 17:25-0400 Body temperature 98.06 [degF] [facility] 07-09-2022 17:25-0400 Heart rate 95 /min [facility] 07-09-2022 17:25-0400 Respiratory rate 16 /min [facility] 07-09-2022 17:25-0400 SaO2% (BldA) [Mass fraction] 98 % [facility] 03-15-2022 11:05-0500 Blood Pressure Location Greg Dorian [facility] 03-15-2022 11:05-0500 Diastolic blood pressure 50 mm[Hg] Greg Alarcon [facility] 03-15-2022 11:05-0500 Heart rate 75 /min [place] [facility] 03-15-2022 11:05-0500 SaO2% (BldA) [Mass fraction] 98 % [facility] 03-15-2022 11:05-0500 Systolic blood pressure 90 mm[Hg] Greg Alarcon [facility] 01-11-2022 11:29-0500 Body height 177.8 cm Nav M Hoy Work Phone: [facility] [facility] DO Work Phone: 01-11-2022 11:29-0500 Body mass index (BMI) [Ratio] 32.71 kg/m2 Nav M Hoy Work Phone: [facility] [facility] DO Work Phone: 01-11-2022 11:29-0500 Body surface area Derived from formula 2.21 m2 Nav M Hoy Work Phone: [facility] [facility] DO Work Phone: 01-11-2022 11:29-0500 Body weight 103.42 kg Nav M Hoy Work Phone: [facility] 250 DO Work Phone: 01-11-2022 11:29-0500 Diastolic blood pressure 60 mm[Hg] Nav M Hoy Work Phone: [facility] 250 DO Work Phone: 01-11-2022 11:29-0500 Heart rate 80 /min Nav M Hoy Work Phone: [facility] [facility] DO Work Phone: 01-11-2022 11:29-0500 Systolic blood pressure 98 mm[Hg] Nav M Hoy Work Phone: [facility] [facility] DO Work Phone: 11-02-2021 12:32-0400 Blood Pressure Location Greg Dorian [facility] 11-02-2021 12:32-0400 Body temperature 97.7 [degF] Greg Alarcon [facility] 11-02-2021 12:32-0400 Diastolic blood pressure 63 mm[Hg] Greg Alarcon [facility] 11-02-2021 12:32-0400 Heart rate 72 /min Greg Dorian [facility] 11-02-2021 12:32-0400 Respiratory rate 16 /min Greg Harveyan [facility] 11-02-2021 12:32-0400 SaO2% (BldA) [Mass fraction] 96 % Greg Harveyan [facility] 11-02-2021 12:32-0400 Systolic blood pressure 105 mm[Hg] Greg Dorian [facility] 10-26-2021 14:53-0400 Blood Pressure Location Greg Alarcon [facility] 10-26-2021 14:53-0400 Diastolic blood pressure 66 mm[Hg] Greg Alarcon [facility] 10-26-2021 14:53-0400 Heart rate 82 /min Greg Harveyan [facility] 10-26-2021 14:53-0400 SaO2% (BldA) [Mass fraction] 97 % Greg Alarcon [facility] 10-26-2021 14:53-0400 Systolic blood pressure 107 mm[Hg] Greg Harveyan [facility] 07-13-2021 11:47-0400 Body height 177.8 cm Nav [employer] Work Phone: [facility] [employer] 250 DO Work Phone: 07-13-2021 11:47-0400 Body mass index (BMI) [Ratio] 32.14 kg/m2 Nav Falcon [employer] Work Phone: [facility] [employer] [facility] DO Work Phone: 07-13-2021 11:47-0400 Body surface area Derived from formula 2.19 m2 Nav Falcon Hoy Work Phone: [facility] [facility] DO Work Phone: 07-13-2021 11:47-0400 Body weight 101.61 kg Nav Ezekiel Hoy Work Phone: [facility] [facility] DO Work Phone: 07-13-2021 11:47-0400 Diastolic blood pressure 76 mm[Hg] Nav Falcon Hoy Work Phone: [facility] [facility] DO Work Phone: 07-13-2021 11:47-0400 Heart rate 66 /min Nav Falcon Hoy Work Phone: [facility] [facility] DO Work Phone: 07-13-2021 11:47-0400 Systolic blood pressure 112 mm[Hg] Nav Falcon Hoy Work Phone: [facility] [facility] DO Work Phone: Encounters Encounter Date Encounter Type Care Provider Facility Start: 09-02-2023 Non-patient / Non-visit MD Adolfo Alejo Work Phone: [facility] Nephrology Work Phone: Start: 08-30-2023 Non-patient / Non-visit MD Adolfo Alejo Work Phone: [facility] Work Phone: Start: 08-29-2023 End: 08-29-2023 ambulatory ROMEO POP Not Available Start: 08-27-2023 End: 08-27-2023 ambulatory ROMEO POP Not Available Start: 08-26-2023 Non-patient / Non-visit MD Adolfo Alejo Work Phone: [facility] Work Phone: Start: 08-26-2023 Non-patient / Non-visit MD Adolfo Alejo Work Phone: [facility] Infectious Disease Work Phone: Start: 08-25-2023 End: 09-02-2023 Evaluation and management of inpatient MD Nav Alejo Work Phone: [facility] Work Phone: Start: 08-05-2023 Non-patient / Non-visit MD Adolfo Alejo Work Phone: [facility] Work Phone: Start: 08-01-2023 End: 08-01-2023 ambulatory FELISA H WIN Not Available Start: 07-16-2023 End: 07-16-2023 ambulatory FELISA H WIN Not Available Start: 07-08-2023 Non-patient / Non-visit MD Adolfo Alejo Work Phone: [facility] Work Phone: Start: 07-04-2023 End: 07-04-2023 ambulatory FELISA H WIN Not Available Start: 06-24-2023 End: 06-25-2023 Non-patient / Non-visit MD Nav Alejo Work Phone: [facility] Infectious Disease Work Phone: Start: 06-22-2023 End: 06-26-2023 Non-patient / Non-visit MD Nav Alejo Work Phone: [facility] Nephrology Work Phone: Start: 06-21-2023 End: 06-26-2023 Evaluation and management of inpatient MD Nav Alejo Work Phone: [facility] [place] [facility] Work Phone: Start: 06-18-2023 End: 06-19-2023 ambulatory Greg Alarcon Facility:[facility] Start: 06-18-2023 End: 06-18-2023 Patient encounter procedure Greg Alarcon [facility] Start: 06-05-2023 Non-patient / Non-visit MD Adolfo Alejo Work Phone: [facility] Work Phone: Start: 05-27-2023 End: 05-28-2023 ambulatory Greg Alarcon Facility:[facility] Start: 05-27-2023 End: 05-27-2023 Patient encounter procedure Greg Alarcon [facility] Start: 05-09-2023 End: 05-09-2023 ambulatory MD Nav Alejo Work Phone: [facility] Work Phone: Start: 05-09-2023 End: 05-09-2023 Patient encounter procedure MD Nav Alejo Work Phone: [facility] Infectious Disease Work Phone: Start: 05-05-2023 Non-patient / Non-visit MD Adolfo Alejo Work Phone: [facility] Work Phone: Start: 04-23-2023 Non-patient / Non-visit MD Adolfo Alejo Work Phone: [facility] Work Phone: Start: 04-10-2023 Non-patient / Non-visit MD Adolfo Alejo Work Phone: [facility] Vascular Surgery Work Phone: Start: 04-10-2023 Non-patient / Non-visit MD Adolfo Alejo Work Phone: [facility] Nephrology Work Phone: Start: 04-10-2023 Non-patient / Non-visit MD Adolfo Alejo Work Phone: Community Health Physician [facility] Infectious Disease Work Phone: Start: 04-09-2023 Non-patient / Non-visit MD Adolfo Alejo Work Phone: Community Health Physician [facility] Med OutPt Work Phone: Start: 04-09-2023 End: 04-16-2023 Evaluation and management of inpatient MD Nav Alejo Work Phone: [facility] Work Phone: Start: 04-06-2023 Non-patient / Non-visit MD Adolfo Alejo Work Phone: Community Health Physician [facility] D[facility] Work Phone: Start: 03-15-2023 ambulatory [facility] Start: 03-15-2023 End: 03-16-2023 ambulatory [facility] Start: 02-06-2023 ambulatory [facility] Start: 01-31-2023 End: 01-31-[address] [facility] Ambulatory Start: 01-31-2023 End: 01-31-2023 Office outpatient visit 15 minutes [facility] DO Work Phone: [facility] Comment on above: Arteriosclerotic hea rt disease; S/P PTCA (percutaneous transluminal coronary angioplasty); ESRD (end stage renal disease) on dialysis ([facility]); Diabetes mellitus of other type without complication, unspecified whether chcf insulin use ([facility]); Essential hypertension; Hyperlipidemia, unspecified hyperlipidemia type; Never smoked any substance Start: 01-18-2023 Encounter for other preprocedural examination [facility] Start: 01-18-2023 End: 01-18-2023 ambulatory KERN VALLEYAN [facility] Start: 01-16-2023 Encounter for other preprocedural examination [facility] Start: 01-15-2023 End: 01-15-2023 ambulatory GREG ALARCON [facility] Start: 01-09-2023 End: 01-10-2023 ambulatory ROSANNE [facility] Start: 10-16-2022 ambulatory ROSANNE [facility] Start: 10-02-2022 End: 10-02-2022 ambulatory GREG ALARCON [facility] Start: 08-16-2022 End: 08-17-2022 ambulatory Greg HerminiaElodia Alarcon Facility:[facility] Start: 08-16-2022 End: 08-16-2022 Patient encounter procedure Greg HerminiaElodia Alarcon [facility] Start: 08-15-2022 Rx Renewal Nav Alejo Work Phone: [facility] DO Work Phone: Start: 08-09-2022 End: 08-09-2022 ambulatory Alfredo Acosta Other [facility] [employer] Other Start: 08-09-2022 Office outpatient vi sit 25 minutes Alfredo Acosta [facility] Infectious Disease Start: 07-30-2022 End: 07-31-2022 ambulatory Greg HerminiaElodia Alarcon Facility:[facility] Start: 07-30-2022 End: 07-30-2022 Patient encounter procedure Luisanakeenan HopeElodia Dorian [facility] Start: 07-18-[address] Nav Alejo Facility:[id number] Start: 07-12-2022 End: 07-20-2022 Evaluation and management of inpatient Fuentes Rodriguez Facility:[facility] Start: 07-12-2022 End: 07-13-2022 ambulatory Greg Alarcon Facility:[facility] Start: 07-12-2022 End: 07-17-2022 Pre-admission assessment Greg Alarcon [facility] Start: 07-12-2022 End: 07-12-2022 Patient encounter procedure Greg Alarcon [facility] Start: 07-09-2022 End: 07-09-2022 Emergency department patient visit Adam Weinberg Facility:[facility] Start: 07-09-2022 End: 07-09-2022 Emergency department patient visit Adam Weinberg [facility] Start: 07-02-2022 End: 07-03-2022 ambulatory Greg Alarcon Facility:[facility] Start: 06-29-2022 End: 06-29-2022 Emergency department patient visit Reji Azar Facility:[facility] Start: 06-26-[address] NAV ALEJO . Facili ty:[facility] Start: 06-05-2022 End: 06-06-[address] NAV ALEJO . Facility: Start: 05-17-2022 ambulatory UNKNOWN PROVIDER Facili ty:[facility] Start: 05-09-2022 End: 05-09-[address] NAV ALEJO . Facility:[facility] Start: 05-08-2022 End: 05-09-2022 ambulatory LAUREN SCHWARZ Facility:[facility] Start: 04-12-2022 End: 04-13-2022 ambulatory MARANDA HUIZAR Facility:[facility] Start: 03-20-2022 End: 03-21-2022 ambulatory LAUREN Herrera [facility] Facility:[facility] Start: 03-15-2022 End: 03-15-2022 Admission to same day surgery center Greg Alarcon [facility] Start: 03-15-2022 End: 03-15-2022 Patient encounter procedure ASHOK ALARCON [facility] Start: 03-15-2022 End: 03-15-2022 Patient encounter procedure Greg Alarcon [facility] Start: 03-06-2022 End: 03-07-2022 ambulatory MARANDA GAYE Facility:[facility] Start: 02-27-2022 End: 02-28-[address] NAV ALEJO . Facility:[facility] Start: 02-15-2022 End: 02-16-2022 ambulatory NATHEN LUCIA Facility:[facility] Start: 01-11-2022 End: 01-11-[address] NAV ALEJO . Facility:[facility] Start: 01-11-2022 Office outpatient vi sit 15 minutes Nav Alejo Work Phone: [facility] DO Work Phone: Start: 01-11-[address] Seth Ying Facility: Start: 11-02-2021 End: 11-02-2021 Admission to same day surgery center [facility] HerminiaElodia Alarcon [facility] Start: 10-26-2021 End: 10-26-2021 [facility] Start: 10-25-2021 Rx Renewal Nav Alejo Work Phone: [facility] DO Work Phone: Start: 08-28-2021 End: 08-28-2021 ambulatory NYLA MOTA . Facility: Start: 07-13-2021 Office outpatient vi sit 15 minutes Nav Falcon Melo Work Phone: [facility] DO Work Phone: Start: 06-04-2019 End: 06-05-2019 Patient encounter procedure NAV ALEJO Facility:[facility] Procedures Date Procedure Procedure Detail Performing Clinician Start: 08-30-2023 Insertion of periphe rally inserted central catheter MD Nav Alejo Work Phone: Start: 08-28-2023 X-ray of left foot MD Sharon Alejo Work Phone: Start: 08-28-2023 Debridement MD Nav Alejo Work Phone: Start: 08-28-2023 Investigation of tra nsfusion reaction MD Nav Alejo Work Phone: Start: 08-27-2023 MRI of right foot MD Valerio Work Phone: Start: 08-26-2023 Duplex scan of lower limb veins MD Nav Alejo Work Phone: Start: 08-26-2023 Pulse volume recorde r pneumoplethysmography MD Nav Alejo Work Phone: Start: 08-26-2023 Aerobic microbial culture MD Nav Alejo Work Phone: Start: 08-25-2023 X-ray of both feet MD Sharon Alejo Work Phone: Start: 08-25-2023 Blood culture for ba cteria, including anaerobic screen MD Nav Alejo Work Phone: Start: 06-25-2023 Investigation of tra nsfusion reaction MD Nav Alejo Work Phone: Start: 06-23-2023 Blood culture for ba cteria, including anaerobic screen MD Nav Alejo Work Phone: Start: 06-22-2023 Aerobic microbial culture MD Nav Alejo Work Phone: Start: 06-21-2023 X-ray of left foot MD Sharon Alejo Work Phone: Start: 06-21-2023 Bacterial ID (NA Mul tiplex Assay) MD Nav Alejo Work Phone: Start: 06-21-2023 Blood culture for ba cteria, including anaerobic screen MD Nav Alejo Work Phone: Start: 04-10-2023 MRI of left foot MD Adolfo Alejo Work Phone: Start: 04-10-2023 Pulse volume recorde r pneumoplethysmography MD Nav Alejo Work Phone: Start: 04-09-2023 X-ray of left foot MD Sharon Alejo Work Phone: Start: 04-09-2023 Duplex scan of lower limb veins MD Nav Alejo Work Phone: Start: 04-09-2023 Aerobic microbial culture MD Nav Alejo Work Phone: Start: 04-09-2023 Blood culture for ba cteria, including anaerobic screen MD Nav Alejo Work Phone: Start: 01-31-2023 Aspartate aminotrans ferase [Enzymatic activity/volume] in Serum or Plasma SETH YING Start: 01-31-2023 Lipid panel SETH CHADD LUDWIGDON Start: 01-31-2023 Alanine aminotransfe rase [Enzymatic activity/volume] in Serum or Plasma SETH YING Start: 07-16-2022 Arteriovenous fistul a (morphologic abnormality) Greg Alarcon Start: 07-02-2022 Insertion of hemodia lysis catheter Adam Weinberg Start: 03-15-2022 Fistulography with contrast Greg Alarcon Start: 11-02-2021 Fluoroscopic fistulography Greg Alarcon Start: 08-04-2020 Fistulography with contrast Greg Alarcon Start: 07-07-2020 Removal of catheter Luisana Alarcon Comment on above: removal of hemodialy sis catheter removal of hemodialy sis catheter Start: 06-16-2020 Coagulation factor X I (substance) Greg Alarcon Comment on above: MULTI SLIDE MACHINE TENDER of Left Fistula MULTI SLIDE MACHINE TENDER of Left Fistula Start: 03-31-2020 Arteriovenous fistulization Greg Alarcon Start: 08-06-2019 AV fistula recircula tion (observable entity) [facility] Comment on above: creation of av fistu la of left arm. creation of av fistu la of left arm. Cardiac catheterization Enoch Alejo Work Phone: Cholecystectomy Nav esparza Work Phone: Cholecystectomy Greg Osma n Colonoscopy Nav Alejo Work Phone: H/O: tracheostomy Greg Os man Hernia of abdominal cavity (disorder) Greg Harveyan History of percutane ous transluminal coronary angioplasty History of PTCA Nav M Hoy Work Phone: Placement of stent i n cardiac conduit Greg Alarcon Renal lithotripsy Nav Falcon Hoisaias Work Phone: Revision of vascular procedure Nav M Hoisaias Work Phone: Surgical procedure Nav M Melo Work Phone: Comment on above: Sclerosing Multiple Veins By Injection - One Leg; Tonsillectomy and adenoidectomy Nav Aleoj Work Phone: Vasectomy Nav Alejo Work Phone: Comment on above: Surgery Vas Deferens Vasectomy; Plan of Treatment Date Care Activity Detail Author Start: 09-02-2023 [facility] Start: 08-29-2023 Administration of prophylactic treatment [facility] Start: 08-25-2023 Referral to interior design teacher [facility] Start: 08-25-2023 Hospital admission [facility] Start: 08-25-2023 Referral to infectious diseases physician [facility] Start: 08-25-2023 Referral to biology specimen technician [facility] Start: 06-26-2023 End: 06-26-2023 [facility] Start: 06-25-2023 [facility] Start: 06-24-2023 [facility] Start: 06-23-2023 [facility] Start: 06-22-2023 [facility] Start: 06-21-2023 Referral to interior design teacher [facility] Start: 06-21-2023 Referral to biology specimen technician [facility] Start: 06-21-2023 Referral to infectious diseases physician [facility] Start: 06-21-2023 Hospital admission [facility] Start: 06-21-2023 End: 06-21-2023 [facility] Start: 06-21-2023 Bacteria identified in Blood by Culture [facility] Start: 06-21-2023 Detachment at Left Foot, Partial 1st Ray, Open Approach Detachment at Left Foot, Partial 1st Ray, Open Approach [facility] Start: 06-21-2023 Performance of Urinary Filtration, Intermittent, Less than 6 Hours Per Day Performance of Urinary Filtration, Intermittent, Less than 6 Hours Per Day [facility] Start: 04-16-2023 [facility] Start: 04-15-2023 Insertion of peripherally inserted central catheter [facility] Start: 04-10-2023 Referral to infectious diseases physician [facility] Start: 04-09-2023 Referral to interior design teacher [facility] Start: 04-09-2023 Referral to vascular surgeon [facility] Start: 04-09-2023 Referral to biology specimen technician [facility] Start: 04-09-2023 Hospital admission [facility] Start: 04-09-2023 Fluoroscopy of Left Upper Extremity Veins using Low Osmolar Contrast Fluoroscopy of Left Upper Extremity Veins using Low Osmolar Contrast [facility] Start: 04-09-2023 Insertion of Infusion Device into Upper Vein, Percutaneous Approach Insertion of Infusion Device into Upper Vein, Percutaneous Approach [facility] Start: 04-09-2023 Inspection of Upper Vein, Percutaneous Approach Inspection of Upper Vein, Percutaneous Approach [facility] Start: 04-09-2023 Performance of Urinary Filtration, Intermittent, Less than 6 Hours Per Day Performance of Urinary Filtration, Intermittent, Less than 6 Hours Per Day [facility] Start: 04-09-2023 Removal of Infusion Device from Upper Vein, External Approach Removal of Infusion Device from Upper Vein, External Approach [facility] Start: 01-31-2023 End: 02-01-2024 Alanine aminotransferase [Enzymatic activity/volume] in Serum or Plasma by With P-5'-P Alanine Aminotransferase Lab Routine Arteriosclerotic heart disease Essential hypertension Hyperlipidemia, unspecified hyperlipidemia type Expected: 01/31/2023 (Approximate), Expires: 02/01/2024 [facility] Service Area Work Phone: Comment on above: Expected: 01/31/2023 (Approximate), Expi res: 02/01/2024 Start: 01-31-2023 End: 02-01-2024 Aspartate aminotransferase [Enzymatic activity/volume] in Serum or Plasma by With P-5'-P Aspartate Aminotransferase Lab Routine Arteriosclerotic heart disease Essential hypertension Hyperlipidemia, unspecified hyperlipidemia type Expected: 01/31/2023 (Approximate), Expires: 02/01/2024 [facility] Work Phone: Comment on above: Expected: 01/31/2023 (Approximate), Expi res: 02/01/2024 Start: 01-31-2023 End: 02-01-2024 Lipid 1996 panel - Serum or Plasma Lipid Panel Lab Routine Arteriosclerotic heart disease Essential hypertension Hyperlipidemia, unspecified hyperlipidemia type Expected: 01/31/2023 (Approximate), Expires: 02/01/2024 [facility] Work Phone: Comment on above: Expected: 01/31/2023 (Approximate), Expi res: 02/01/2024 Start: 01-15-2023 FUV, Provider: Seth Yign, Status: Pen, Time: 10:10 AM FUV, Provider: Seth Ying, Status: Pen, Time: 10:10 AM [facility] DO Work Phone: Start: 10-12-2022 Influenza vaccination Influenza Vaccine (#1) [facility] Start: 01-11-2022 FUV, Provider: Seth Ying, Status: Pen, Time: 11:10 AM FUV, Provider: Seth Ying, Status: Pen, Time: 11:10 [facility] Work Phone: Start: 10-20-2021 Echocardiography Echocardiogram [facility] Start: 03-28-2021 COVID-19 Vaccine (4 - Pfizer series) COVID-19 Vaccine (4 - Pfizer series) [facility] Start: 11-21-2005 Zoster Vaccines (1 of 2) Zoster Vaccines (1 of 2) [facility] Start: 11-21-1977 DTaP/Tdap/Td Vaccines (1 - Tdap) DTaP/Tdap/Td Vaccines (1 - Tdap) [facility] Start: 11-21-1974 Urine screening for protein Diabetes: Urine Protein Screening [facility] Start: 11-21-1973 Hepatitis C screening Hepatitis C Screening [facility] Start: 11-21-1965 Diabetic foot examination Diabetes: Foot Exam [facility] Start: 11-21-1965 Glaucoma screening Diabetes: Retinopathy Screening [facility] Start: 11-21-1961 Pneumococcal Vaccine: 65+ Years (1 - PCV) Pneumococcal Vaccine: 65+ Years (1 - PCV) [facility] Start: 1955 Creatinine measurement Creatinine Level [facility] Start: 1955 Hemoglobin A1c measurement Diabetes: Hemoglobin A1C [facility] Start: 1955 Lipid panel Lipid Panel [facility] Start: 1955 Medicare Annual Wellness Visit Medicare Annual Wellness Visit (AWV) [facility] Start: 1955 Potassium measurement Potassium Level [facility] Start: 1955 Screening for malignant neoplasm of colon [facility] Start: 1955 Thyroid stimulating hormone measurement TSH Level [facility] Patient Education [facility] Work Phone: Patient referral [facility] Work Phone: Immunizations Immunization Date Immunization Notes Care Provider Charo mayorga 01-31-2021 Pfizer-BioNTech COVID-19 Vacc 30 MCG/0.3ML Intramuscular Suspension Nav Alejo Work Phone: [facility] 250 DO Work Phone: 07-26-2020 Pfizer-BioNTech COVID-19 Vacc 30 MCG/0.3ML Intramuscular Suspension Nav Alejo Work Phone: [facility] 250 DO Work Phone: 07-05-2020 Pfizer-BioNTech COVID-19 Vacc 30 MCG/0.3ML Intramuscular Suspension Nav Alejo Work Phone: [facility] Payers Date Payer Category Payer Self-pay [id number] 2023 Unknown [id number] 2019 Medicare MEDICARE MEDICAR E PART A AND B [id number] 2019-Present [address] [place] [address] [id number] 2018 Unknown [id number] 2015 Unknown [id number] 1959 Medicare [id number] 1955 Unknown [id number] 2.16.840.1.964093.3.579.2.647 1955 Unknown [id number] 2.16.840.1.203456.3.579.2.732 1955 Unknown [id number] 2.16.840.1.877354.3.579.2.593 1955 Unknown [id number] 2.16.840.1.919120.3.579.2.593 1955 Unknown [id number] 2.16.840.1.808789.3.579.2.593 1955 Unknown [id number] 2.16.840.1.228519.3.579.2.593 1955 Unknown [id number] 2.16.840.1.129916.3.579.2.593 1955 Unknown [id number] 2.16.840.1.139191.3.579.2.593 1955 Unknown [id number] 2.16.840.1.421541.3.579.2.593 1955 Unknown [id number] 2.16.840.1.319339.3.579.2.593 1955 Unknown [id number] 2.16.840.1.184278.3.579.2.593 1955 Unknown [id number] 2.16.840.1.015446.3.579.2.593 1955 Unknown [id number] 2.16.840.1.797498.3.579.2.593 1955 Unknown [id number] 2.16.840.1.034984.3.579.2.356 1955 Unknown [id number] 2.16.840.1.169802.3.579.2.356 1955 Unknown [id number] 2.16.840.1.697799.3.579.2.1244 1955 Unknown [id number] 2.16.840.1.782475.3.579.2.727 1955 Unknown [id number] 2.16.840.1.842605.3.579.2.727 1955 Unknown [id number] 2.16.840.1.017023.3.579.2.727 1955 Unknown [id number] 2.16.840.1.783929.3.579.2.727 1955 Unknown [id number] 2.16.840.1.364198.3.579.2.727 1955 Unknown [id number] 2.16.840.1.659088.3.579.2.727 1955 Unknown [id number] 2.16.840.1.697376.3.579.2.727 1955 Unknown [id number] 2.16.840.1.111366.3.579.2.727 1955 Unknown [id number] 2.16.840.1.821418.3.579.2.727 1955 Unknown [id number] 2.16.840.1.298870.3.579.2.1259 1955 Unknown [id number] 2.16.840.1.697348.3.579.2.1259 1955 Unknown [id number] 2.16.840.1.133700.3.579.2.1259 1955 Unknown [id number] 2.16.840.1.262693.3.579.2.1259 1955 Unknown [id number] 2.16.840.1.859579.3.579.2.125 Unknown Unknown [id number] 2.16.840.1.392441.3.579.2.531 Social History Date Type Detail Facility Tobacco smoking stat [facility] Unknown if ever smoked [facility] Start: 1955 Sex Assigned At Male F [facility] Start: 01-31-2023 Caffeine use Caffeine use [facility] DO Work Phone: Comment on above: 2-3 times weekly- Co ffee. 1 pop daily; Start: 07-07-2020 End: 08-26-2023 Never smoked tobacco (finding) [facility] Start: 01-31-2023 Male [facility] Tobacco smoking status Never [facility] Tobacco [facility] Comment on above: denies Tobacco smoking status No Smokin g Status Entered [facility] Start: 01-31-2023 Tobacco use and exposure Smokeless tobacco non-user [facility] Work Phone: Start: 01-31-2023 Alcohol intake Lifetime non-d carl (finding) [facility] Work Phone: Start: 1955 Sex Assigned At Not on file [facility] Work Phone: Start: 01-21-2023 End: 01-31-2023 Exposure to SARS-CoV-2 (event) Not sure [facility] Medical Equipment Procedure Code Equipment Code [...] above: left IJ HD cath Start: 10-30-2012 CL CLOSURE DEVIC E EXOSEAL 6F FDA Start: 04-16-2018 CL STENT DARON 4. 0 X 22 FDA Start: 04-16-2018 CL STENT THERESA 3.5 X 38 FDA Start: 04-16-2018 Unknown Unknown 08/04/20 Non [...] Comment on above: left IJ HD cath CL CLOSURE DEVIC E EXOSEAL 6F FDA Start: 04-16-2018 CL STENT DARON 4. 0 X 22 FDA Start: 04-16-2018 CL STENT THERESA 3.5 X 38 FDA Start: 04-16-2018 CL CLOSURE DEVIC E EXOSEAL 6F FDA Start: 04-16-2018 CL STENT DRAON 4. 0 X 22 FDA Start: 04-16-2018 CL STENT THERESA 3.5 X 38 FDA Start: 04-16-2018 Goals Date Patient Goal Desired Activity /State Functional Status Date Assessment Result Facility 09-02-2023 Functional status Patient is Pro gressing Toward Baseline [facility] Work Phone: 06-26-2023 Functional status Patient is Pro gressing Toward Baseline [facility] Work Phone: 05-27-2023 Functional Status No [facility] 04-16-2023 Functional status Patient at Baseline [facility] Work Phone: 07-30-2022 Functional Status No [facility] 07-12-2022 Functional Status No [facility] 07-09-2022 Functional Status N/A [facility] 03-15-2022 Functional Status N/A [facility] 03-15-2022 Functional Status No [facility] 11-02-2021 Functional Status N/A [facility] 10-26-2021 No [facility] Mental Status Date Assessment Result Facility 09-02-2023 Cognitive function Cognitive Sta tus Patient at Baseline [facility] Work Phone: 06-26-2023 Cognitive function Cognitive Sta tus Patient at Baseline [facility] Work Phone: 04-16-2023 Cognitive function Cognitive Sta tus Patient at Baseline [facility] Work Phone: Clinical Notes 11-02-2021 to 09-02-2023 Note Date & Type Note Facility 09-02-2023 Progress note Note Date/Time September 02, 2023 7:[address] [facility] [address] [place] [address] Nephrology Progress Note Signed Patient: Seth Murphy MR#: [id number] : 1955 Acct:[id number] Age/Sex: 67 / M Adm Date: 4 Loc: 4N Room: [address] [place] [address] Type: ADM IN Attending Dr: Clay Smith MD Copies to: ~ Date of Service: 09/02/2023 Subjective Subjective Narrative: Mr. Murphy is a 67-year-old male with medical history significant for ESRD, DM, HTN, CAD, Peripheral vascular disease with amputation of left big toe. He presented to the [facility] due to suspected infection on his right foot. He is having increased pain and swelling over this past several days. On presentation to the ED he had fever, chills and confusion. He had no leukocytosis but was febrile, tachycardic, normotensive. Sodium 128, glucose 500, lactic acid 2.2. While at [place] he was started on IV vancomycin and Rocephin. He was transferred here for dialysis and continued sepsis management. Upon arrival to [facility] he was noted to have a fever of 102, tachycardia, blood pressure 150s over 50s. He appeared septic. 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 Patient receives dialysis on MWF schedule at [facility].. Nephrology was consulted for ESRD management and dialysis. Interval history: Patient is being seen and examined in his room during hemodialysis. He is feeling better denies any chest pain palpation cough nausea vomit diarrhea shortness of breath Patient had med line to continue vancomycin and cefepime at home. He was not able to get PICC line because of stent Right foot in dressing. No more fever over the last 24 hours. Wound culture showed MRSA and Pseudomonas aeruginosa. Bone Bx showed MRSA. Pt will need antibiotics for at least 6 weeks Exam Physical Exam Vital Signs: Temp Pulse Resp BP Pulse Ox O2 Del Method 98.5 F 38 L 12 134/55 L 97 Room Air 09/02/23 03:12 09/02/23 03:12 09/02/23 03:12 09/02/23 03:12 09/02/23 03:12 09/02/23 03:12 Narrative: General: Appears comfortable and not in distress Heart: S1-S2, no rub Lung: Bilateral air entry, no wheezing or crackles Abdomen: Soft, positive bowel sounds Extremities: No edema, no cyanosis Head: Atraumatic, normocephalic Ear: No gross hearing Deficit or external ear redness Eyes: No pallor or redness Neck: No JVD or visible mass Skin: No rashes , warm to touch ADVERTISING ACCOUNT MANAGER: Awake,Alert, following simple command Musculoskeletal: No swelling or limitation of movement of the large joints Psychiatric: Cooperative, normal mood and affect Objective Intake and Output I&O: Intake & Output 08/30/23 08/31/23 09/01/23 09/02/23 23:59 23:59 23:59 23:59 Intake Total 1850 / 1850 1400 / 1400 75 / 75 240 / 240 Output Total 3010 / 3010 150 / 150 Balance -1160 / -1160 1250 / 1250 75 / 75 240 / 240 Weight 97.6 kg 97.8 kg 97.7 kg 100.1 kg Meds and Allergies Meds: Active Medications Acetaminophen (Acetaminophen 325 Mg Tablet) 650 mg PO Q6HR PRN PRN Reason: Pain Scale 1 - 3 or fever Stop: 08/24/24 15:25 Last Admin: 09/01/23 06:11 Dose: 650 mg Amlodipine Besylate (Amlodipine 2.5 Mg Tablet) 2.5 mg PO DAILY GEENA Stop: 08/31/24 11:54 Last Admin: 09/01/23 12:54 Dose: 2.5 mg Apixaban (Apixaban 5 Mg Tablet) 10 mg PO BID GEENA Stop: 09/04/23 09:01 Last Admin: 09/01/23 21:31 Dose: 10 mg Apixaban (Apixaban 5 Mg Tablet) 5 mg PO BID GEENA Stop: 09/03/24 20:59 Atorvastatin Calcium (Atorvastatin 40 Mg Tablet) 40 mg PO QPM GEENA Stop: 08/24/24 20:59 Last Admin: 09/01/23 21:31 Dose: 40 mg Darbepoetin Thomas (Darbepoetin Thomas In Polysorbat 60 Mcg/Ml Vial) 60 mcg IV-PUSHWe@1000 GEENA; Protocol Stop: 08/27/24 09:59 Last Admin: 08/28/23 09:50 Dose: 60 mcg Dextrose (Dextrose 50% In Water 25 Gm/50 Ml Syringe) 0 gm IV-PUSH PRN PRN PRN Reason: Hypoglycemia Stop: 08/24/24 15:28 Glucose (Dextrose 40% Gel 15 Gm Tube) 0 gm PO PRN PRN PRN Reason: Hypoglycemia Stop: 08/24/24 15:28 Heparin Sodium (Porcine) (Heparin 10,000 Unit/10 Ml Vial) 3,000 unit IV PRN PRN PRN Reason: Dialysis Stop: 08/25/24 09:07 Last Admin: 08/30/23 10:24 Dose: 3,000 unit Heparin Sodium (Porcine) (Heparin 10,000 Unit/10 Ml Vial) 2,000 unit IV PRN PRN PRN Reason: Dialysis Stop: 08/25/24 09:07 Last Admin: 08/30/23 10:24 Dose: 2,000 unit Sodium Chloride (0.9% Sodium Chloride 1,000 Ml) 1,000 mls @ 0 mls/hr MISCELLANE.Q0M PRN PRN Reason: Dialysis Stop: 08/25/24 09:07 Last Infusion: 08/30/23 10:25 Dose: Infused Cefepime HCl (Maxipime) 1 gm in 50 mls @ 100 mls/hr IV Q24H GEENA Last Admin: 09/01/23 17:01 Dose: 100 mls/hr Insulin Aspart (Insulin Aspart 300 Units/3 Ml Insuln.Pen) 0 units SUBCUT TID.WM.HS [facility]; Protocol Stop: 08/24/24 16:59 Last Admin: 09/01/23 21:31 Dose: 12 units Insulin Glargine (Insulin Glargine 300 Units/3 Ml Insuln.Pen) 45 units SUBCUT QHS [facility] Stop: 08/28/24 21:59 Last Admin: 09/01/23 21:44 Dose: 45 units Levothyroxine Sodium (Levothyroxine 100 Mcg Tablet) 100 mcg PO DAILY.0630 [facility] Stop: 08/26/24 06:29 Last Admin: 09/02/23 05:30 Dose: 100 mcg Liothyronine Sodium (Liothyronine 5 Mcg Tablet) 5 mcg PO QAM [facility] Stop: 08/25/24 08:59 Last Admin: 09/01/23 08:24 Dose: 5 mcg Metoprolol Succinate (Metoprolol Succinate 25 Mg Tab.Er.24h) 25 mg PO DAILY [facility] Stop: 08/31/24 08:59 Last Admin: 09/01/23 08:24 Dose: 25 mg Midodrine (Midodrine 5 Mg Tablet) 5 mg PO DAILY PRN PRN Reason: Hypotension Stop: 08/25/24 09:07 Last Admin: 08/26/23 14:59 Dose: 5 mg Morphine Sulfate (Morphine Sulfate 2 Mg/Ml Vial) 2 mg IV-PUSH Q4H PRN PRN Reason: Pain Scale 8 - 10 Last Admin: 08/27/23 11:31 Dose: 2 mg Multi-Ingredient Cream (Lanolin Alcohol/Mo/W.Pet/[place] (Minerin) 454 Gm Jar) 1 applic TOPICAL DAILY [facility] Stop: 08/30/24 08:59 Last Admin: 09/01/23 08:24 Dose: 1 applic Nystatin (Nystatin 100,000 Unit/Gram Powder 15 Gm Bottle) 1 applic TOPICAL DAILY [facility] Stop: 08/30/24 08:59 Last Admin: 09/01/23 08:24 Dose: 1 applic Paricalcitol (Paricalcitol 10 Mcg/2 Ml Vial) 7 mcg IV-PUSH MoWeFr@1000 [facility] Stop: 08/25/24 09:59 Last Admin: 08/30/23 10:23 Dose: 7 mcg Prochlorperazine Edisylate (Prochlorperazine Edisylate 10 Mg/2 Ml Vial) 5 mg IV-PUSH Q4H PRN PRN Reason: Nausea And Vomiting Stop: 08/24/24 15:25 Sodium Chloride (Sodium Chloride 0.9 % 10 Ml Syringe) 0 ml IV-PUSH PRN PRN PRN Reason: Flush Stop: 08/25/24 09:07 Last Admin: 08/30/23 17:09 Dose: 20 ml Sodium Chloride (Sodium Chloride 0.9 % 10 Ml Syringe) 0 ml IV-PUSH PRN PRN PRN Reason: Flush Stop: 08/29/24 11:32 Allergies ticagrelor [From Brilinta] Allergy (Unknown, Verified 06/21/23 18:26) Headache chlorhexidine Allergy (Verified 06/21/23 18:26) Unknown Reaction coban Allergy (Uncoded 05/09/23 13:07) Unknown Reaction Results - Nephrology Labs 09/02/23 08:25 09/02/23 08:25 Radiology Impressions Impressions - last 24 hours: Any impression(s) listed above is documentation that was entered by the reading physician into a diagnostic report(s) for Seth Murphy. I have reviewed the report(s) and am incorporating any findings in the treatment plan of this patient where applicable. A&P - Nephrology Assessment/Plan (1) ESRD (end stage renal disease): Plan: Patient has ESRD related to diabetic nephropathy and hypertensive nephrosclerosis. He received hemodialysis in the dialysis unit on MWF schedule at [facility] (2) Severe sepsis: Plan: Patient has suspected sepsis due to infection of ulcer on his right foot. He isfebrile with elevated CRP. Patient was started empirically on vancomycin and Zosyn. ID and podiatry follows (3) Type 2 diabetes mellitus with diabetic chronic kidney disease: Plan: Patient has longstanding history of DM2 on insulin with multiple diabetic complications. He continues to have elevated hemoglobin A1c with poorly controlled diabetes (4) Anemia of renal disease: Plan: Hemoglobin at target 9 to 11 g/dL on erythropoietin IV with dialysis (5) Benign hypertension with end-stage renal disease: Plan: Blood pressure controlled with ultrafiltration. He takes midodrine for intradialytic hypotension (6) Secondary hyperparathyroidism: Plan: Patient is secondary hyperparathyroidism due to hyperphosphatemia ESRD. He currently takes calcium carbonate for hyperphosphatemia. He also receives IV Zemplar for dialysis (7) Deep vein thrombosis of right lower extremity: Plan: Patient is currently on enoxaparin 50 mcg subcu every 12 hours. Plan * HD today as ordered. * Continue vancomycin and cefepime as outpatient for 6 weeks. Patient has IV line. * Continue Aranesp 60 mcg weekly on Wednesdays. Globin did drop slightly to 8.9 g/dL after bariatric surgery. * Continue Zemplar 7 mcg 3 times a week. Phosphorus and intact PTH are being monitored as outpatient. * Blood pressure was quite variable during hospital stay with episodes of low and high blood pressure in the setting of bradycardia and bigeminy on admission. He is currently on metoprolol 25 mg daily and amlodipine was just restarted at lower dose. He has mild edema with ultrafiltration on dialysis. Patient is being evaluated for SNF. He lives by himself and he will not able totake care of himself at this point. Documented By: Hilario Nunez MD 09/02/23 0747 Signed By: <Electronically signed by Hilario Nunez MD> 09/02/23 9544 [facility] Work Phone: 1(540) 460-374007-21-2024 Progress note Author Marina Agudelo [facility] September 01, 2023 1:17pm Note Date/Time September 01, 2023 1:[address] [facility] [address] [place] [address] Nephrology Progress Note Signed Patient: Seth Murphy MR#: [id number] : 1955 Acct:[id number] Age/Sex: 67 / M Adm Date: 4 Loc: 4N Room: [address] [place] [address] Type: ADM IN Attending Dr: Denice Dahl MD Copies to: ~ Date of Service: 09/01/2023 Subjective Subjective Narrative: Mr. Murphy is a 67-year-old male with medical history significant for ESRD, DM, HTN, CAD, Peripheral vascular disease with amputation of left big toe. He presented to the [facility] due to suspected infection on his right foot. He is having increased pain and swelling over this past several days. On presentation to the ED he had fever, chills and confusion. He had no leukocytosis but was febrile, tachycardic, normotensive. Sodium 128, glucose 500, lactic acid 2.2. While at [place] he was started on IV vancomycin and Rocephin. He was transferred here for dialysis and continued sepsis management. Upon arrival to [facility] he was noted to have a fever of 102, tachycardia, blood pressure 150s over 50s. He appeared septic. 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 Patient receives dialysis on MWF schedule at [place] [facility] [place] Nephrology was consulted for ESRD management and dialysis. Interval history: Patient is being seen and examined in his room. Waiting for SNF placement as hewill not be able to take care of himself with multiple wounds s/p I&D for right foot wound with osteomyelitis s/p bone biopsy. Blood pressure is elevated today 160s systolic. He had hypotension over the last 48 hours with bradycardia. Amlodipine was stopped and amlodipine was decreased to 25 mg daily. Amlodipine was just restarted at low-dose 2.[address] Dahl Patient had med line to continue vancomycin and cefepime at home. He was not able to get PICC line because of stent Right foot in dressing. No more fever over the last 24 hours. Wound culture showed MRSA and Pseudomonas aeruginosa. Bone Bx showed MRSA. Pt will need antibiotics for at least 6 weeks Exam Physical Exam Vital Signs: Temp Pulse Resp BP Pulse Ox O2 Del Method 36.6 C 68 20 160/83 H 97 Room Air 09/01/23 11:28 09/01/23 11:28 09/01/23 11:28 09/01/23 11:28 09/01/23 11:09/01/23 11:44 Narrative: General: Lying in bed. Ill-appearing. HEENT: No jaundice, pallor. Moist mucous membranes Cardiovascular: Regular rate and rhythm, no murmurs. No JVD Respiratory: Good bilateral air entry. No wheezing Abdominal: Nondistended, nontender Extremities: No edema. Amputation of left great toe. Bandaging over right footto cover suspected infected wound Right forearm fistula with palpable thrill Neurological: Awake, alert, oriented x 3 Psych: Normal mood and affect. Cooperative Vascular access: Right forearm AV fistula. He has small scab with surrounding erythema at the proximal end. Objective Intake and Output I&O: Intake & Output 08/29/23 08/30/23 08/31/23 09/01/23 23:59 23:59 23:59 23:59 Intake Total 2260 / 2260 1850 / 1850 1350 / 1350 75 / 75 Output Total 0 / 0 3010 / 3010 150 / 150 Balance 2260 / 2260 -1160 / -1160 1200 / 1200 75 / 75 Weight 98.8 kg 97.6 kg 97.8 kg 97.7 kg Meds and Allergies Meds: Active Medications Acetaminophen (Acetaminophen 325 Mg Tablet) 650 mg PO Q6HR PRN PRN Reason: Pain Scale 1 - 3 or fever Stop: 08/24/24 15:25 Last Admin: 09/01/23 06:11 Dose: 650 mg Amlodipine Besylate (Amlodipine 2.5 Mg Tablet) 2.5 mg PO DAILY [facility] Stop: 08/31/24 11:54 Last Admin: 09/01/23 12:54 Dose: 2.5 mg Apixaban (Apixaban 5 Mg Tablet) 10 mg PO BID [facility] Stop: 09/04/23 09:01 Last Admin: 09/01/23 08:24 Dose: 10 mg Apixaban (Apixaban 5 Mg Tablet) 5 mg PO BID [facility] Stop: 09/03/24 20:59 Atorvastatin Calcium (Atorvastatin 40 Mg Tablet) 40 mg PO QPM [facility] Stop: 08/24/24 20:59 Last Admin: 08/31/23 21:45 Dose: 40 mg Darbepoetin Thomas (Darbepoetin Thomas In Polysorbat 60 Mcg/Ml Vial) 60 mcg IV-PUSHWe@1000 [facility]EE[facility]; Protocol Stop: 08/27/24 09:59 Last Admin: 08/28/23 09:50 Dose: 60 mcg Dextrose (Dextrose 50% In Water 25 Gm/50 Ml Syringe) 0 gm IV-PUSH PRN PRN PRN Reason: Hypoglycemia Stop: 08/24/24 15:28 Glucose (Dextrose 40% Gel 15 Gm Tube) 0 gm PO PRN PRN PRN Reason: Hypoglycemia Stop: 08/24/24 15:28 Heparin Sodium (Porcine) (Heparin 10,000 Unit/10 Ml Vial) 3,000 unit IV PRN PRN PRN Reason: Dialysis Stop: 08/25/24 09:07 Last Admin: 08/30/23 10:24 Dose: 3,000 unit Heparin Sodium (Porcine) (Heparin 10,000 Unit/10 Ml Vial) 2,000 unit IV PRN PRN PRN Reason: Dialysis Stop: 08/25/24 09:07 Last Admin: 08/30/23 10:24 Dose: 2,000 unit Sodium Chloride (0.9% Sodium Chloride 1,000 Ml) 1,000 mls @ 0 mls/hr MISCELLANE.Q0M PRN PRN Reason: Dialysis Stop: 08/25/24 09:07 Last Infusion: 08/30/23 10:25 Dose: Infused Cefepime HCl (Maxipime) 1 gm in 50 mls @ 100 mls/hr IV Q24H [facility] Last Admin: 08/31/23 15:00 Dose: 100 mls/hr Insulin Aspart (Insulin Aspart 300 Units/3 Ml Insuln.Pen) 0 units SUBCUT TID.WM.HS [facility]; Protocol Stop: 08/24/24 16:59 Last Admin: 09/01/23 12:51 Dose: 7 units Insulin Glargine (Insulin Glargine 300 Units/3 Ml Insuln.Pen) 45 units SUBCUT QHS [facility] Stop: 08/28/24 21:59 Last Admin: 08/31/23 21:47 Dose: 45 units Levothyroxine Sodium (Levothyroxine 100 Mcg Tablet) 100 mcg PO DAILY.0630 [facility] Stop: 08/26/24 06:29 Last Admin: 09/01/23 06:11 Dose: 100 mcg Liothyronine Sodium (Liothyronine 5 Mcg Tablet) 5 mcg PO QAM [facility] Stop: 08/25/24 08:59 Last Admin: 09/01/23 08:24 Dose: 5 mcg Metoprolol Succinate (Metoprolol Succinate 25 Mg Tab.Er.24h) 25 mg PO DAILY [facility] Stop: 08/31/24 08:59 Last Admin: 09/01/23 08:24 Dose: 25 mg Midodrine (Midodrine 5 Mg Tablet) 5 mg PO DAILY PRN PRN Reason: Hypotension Stop: 08/25/24 09:07 Last Admin: 08/26/23 14:59 Dose: 5 mg Morphine Sulfate (Morphine Sulfate 2 Mg/Ml Vial) 2 mg IV-PUSH Q4H PRN PRN Reason: Pain Scale 8 - 10 Last Admin: 08/27/23 11:31 Dose: 2 mg Multi-Ingredient Cream (Lanolin Alcohol/Mo/W.Pet/[place] (Minerin) 454 Gm Jar) 1 applic TOPICAL DAILY [facility] Stop: 08/30/24 08:59 Last Admin: 09/01/23 08:24 Dose: 1 applic Nystatin (Nystatin 100,000 Unit/Gram Powder 15 Gm Bottle) 1 applic TOPICAL DAILY [facility] Stop: 08/30/24 08:59 Last Admin: 09/01/23 08:24 Dose: 1 applic Paricalcitol (Paricalcitol 10 Mcg/2 Ml Vial) 7 mcg IV-PUSH MoWeFr@1000 GEE[facility] Stop: 08/25/24 09:59 Last Admin: 08/30/23 10:23 Dose: 7 mcg Prochlorperazine Edisylate (Prochlorperazine Edisylate 10 Mg/2 Ml Vial) 5 mg IV- PUSH Q4H PRN PRN Reason: Nausea And Vomiting Stop: 08/24/24 15:25 Sodium Chloride (Sodium Chloride 0.9 % 10 Ml Syringe) 0 ml IV-PUSH PRN PRN PRN Reason: Flush Stop: 08/25/24 09:07 Last Admin: 08/30/23 17:09 Dose: 20 ml Sodium Chloride (Sodium Chloride 0.9 % 10 Ml Syringe) 0 ml IV-PUSH PRN PRN PRN Reason: Flush Stop: 08/29/24 11:32 Vancomycin HCl (Vancomycin - Pharmacy Dosing 1 Each Miscell) 1 each IV ONCE PRN; Protocol PRN Reason: ZZ.Pharmacy Consult Allergies ticagrelor [From Brilinta] Allergy (Unknown, Verified 06/21/23 18:26) Headache chlorhexidine Allergy (Verified 06/21/23 18:26) Unknown Reaction coban Allergy (Uncoded 05/09/23 13:07) Unknown Reaction Results - Nephrology Labs 09/01/23 05:17 09/01/23 05:17 Labs: 09/01/23 05:17 BUN 24 Creatinine 6.97 H Radiology Impressions Impressions - last 24 hours: Any impression(s) listed above is documentation that was entered by the reading physician into a diagnostic report(s) for Seth Cristobalbot. I have reviewed the report(s) and am incorporating any findings in the treatment plan of this patient where applicable. A&P - Nephrology Assessment/Plan (1) ESRD (end stage renal disease): Plan: Patient has ESRD related to diabetic nephropathy and hypertensive nephrosclerosis. He received hemodialysis in the dialysis unit on MWF schedule at [facility] (2) Severe sepsis: Plan: Patient has suspected sepsis due to infection of ulcer on his right foot. He isfebrile with elevated CRP. Patient was started empirically on vancomycin and Zosyn. ID and podiatry follows (3) Type 2 diabetes mellitus with diabetic chronic kidney disease: Plan: Patient has longstanding history of DM2 on insulin with multiple diabetic complications. He continues to have elevated hemoglobin A1c with poorly controlled diabetes (4) Anemia of renal disease: Plan: Hemoglobin at target 9 to 11 g/dL on erythropoietin IV with dialysis (5) Benign hypertension with end-stage renal disease: Plan: Blood pressure controlled with ultrafiltration. He takes midodrine for intradialytic hypotension (6) Secondary hyperparathyroidism: Plan: Patient is secondary hyperparathyroidism due to hyperphosphatemia ESRD. He currently takes calcium carbonate for hyperphosphatemia. He also receives IV Zemplar for dialysis (7) Deep vein thrombosis of right lower extremity: Plan: Patient is currently on enoxaparin 50 mcg subcu every 12 hours. Plan * Patient is euvolemic with no shortness of breath. Potassium is normal. Next hemodialysis will be tomorrow per his regular schedule. * Continue vancomycin and cefepime as outpatient for 6 weeks. Patient has IV line. * Continue Aranesp 60 mcg weekly on Wednesdays. Globin did drop slightly to 8.9 g/dL after bariatric surgery. * Continue Zemplar 7 mcg 3 times a week. Phosphorus and intact PTH are being monitored as outpatient. * Blood pressure was quite variable during hospital stay with episodes of low and high blood pressure in the setting of bradycardia and bigeminy on admission. He is currently on metoprolol 25 mg daily and amlodipine was just restarted at lower dose. He has mild edema with ultrafiltration on dialysis. Patient is being evaluated for SNF. He lives by himself and he will not able totake care of himself at this point. Documented By: Marina Agudelo MD 09/01/231311 Signed By: <Electronically signed by MD Marina Agudelo> 09/01/23 5657 [facility] Work Phone: 1(255) 868-191607-21-2024 Progress note Author Denice Dahl [facility] September 01, 2023 11:56am Note Date/Time September 01, 2023 11:[address] [facility] [address] [place] [address] Hospitalist Progress Note Signed Patient: Seth Murphy MR#: [id number] : 1955 Acct:[id number] Age/Sex: 67 / M Adm Date: 4 Loc: 4N Room: [address] [place] [address] Type: ADM IN Attending Dr: Denice Dahl MD Copies to: ~ Date of Service: 09/01/2023 Subjective Subjective Narrative: Uneventful night. Exam Physical Exam Vital Signs: Temp Pulse Resp BP Pulse Ox O2 Del Method 97.9 F 68 20 160/83 H 97 Room Air 09/01/23 11:28 09/01/23 11:28 09/01/23 11:28 09/01/23 11:28 09/01/23 11:28 09/01/23 11:44 Narrative: [pt is awake and alert. oriented to place, time and person HEENT: [address] conjunctiva and NL buccal mucosa Neck: Supple, no tenderness Endocrine: No Thyromegaly. Vascular: No JVD or carotid bruit. Lymphatic: No cervical lymphadenopathy. Chest: CTA no DTP. Heart RRR, no extra sound or murmur. Abd: Soft, no tenderness, no rebound and no rigidity. Increase abd girth therefore clinically I could not exclude the possibility of intra abd mass or organomegaly. LE: Right foot is wrapped to be inspected by podiatry and ID. Neuro: A A O. Nl speech, comprehension and attention. Nl and symetrical motor and tone examination through out. []] Objective Lab Results 09/01/23 05:17 09/01/23 05:17 Microbiology Results Microbiology 08/28/23 17:08 Bone - Biopsy Aerobic Culture - Final Methicillin Resis Staph Aureus 08/28/23 17:08 Bone - Biopsy Anaerobic Culture - Final No Anaerobes Isolated 3 Days 08/28/23 17:08 Bone - Biopsy Gram Stain - Final 08/28/23 17:09 Foot,Right - Drainage Aerobic Culture - Final Methicillin Resis Staph Aureus Pseudomonas aeruginosa 08/28/23 17:09 Foot,Right - Drainage Anaerobic Culture - Final No Anaerobes Isolated 3 Days 08/28/23 17:09 Foot,Right - Drainage Gram Stain - Final 08/28/23 17:08 Bone - Biopsy Aerobic Culture - Final Methicillin Resis Staph Aureus 08/28/23 17:08 Bone - Biopsy Anaerobic Culture - Final No Anaerobes Isolated 3 Days 08/28/23 17:08 Bone - Biopsy Gram Stain - Final Meds Allergies and Active Meds Allergies ticagrelor [From Brilinta] Allergy (Unknown, Verified 06/21/23 18:26) Headache chlorhexidine Allergy (Verified 06/21/23 18:26) Unknown Reaction coban Allergy (Uncoded 05/09/23 13:07) Unknown Reaction Active Meds: Active Medications Generic Name Dose Route Start Last Admin Trade Name Freq PRN Reason Stop Dose Admin Acetaminophen 650 mg 08/25/23 15:26 09/01/23 06:11 Acetaminophen 325 Mg Tablet PO 08/24/24 15:25 650 mg Q6HR PRN Administration Pain Scale 1 - 3 or fever Amlodipine Besylate 2.5 mg 09/01/23 11:55 Amlodipine 2.5 Mg Tablet PO 08/31/24 11:54 DAILY GEENA Apixaban 10 mg 08/28/23 21:00 09/01/23 08:24 Apixaban 5 Mg Tablet PO 09/04/23 09:01 10 mg BID GEENA Administration Apixaban 5 mg 09/04/23 21:00 Apixaban 5 Mg Tablet PO 09/03/24 20:59 BID GEENA Atorvastatin Calcium 40 mg 08/25/23 21:00 08/31/23 21:45 Atorvastatin 40 Mg Tablet PO 08/24/24 20:59 40 mg QPM GEENA Administration Darbepoetin Thomas 60 mcg 08/28/23 10:00 08/28/23 09:50 Darbepoetin Thomas In Polysorbat 60 Mcg/Ml Vial IV-PUSH 08/27/24 09:59 60 mcg We@1000 GEENA Administration Protocol Dextrose 0 gm 08/25/23 15:29 Dextrose 50% In Water 25 Gm/50 Ml Syringe IV-PUSH 08/24/24 15:28 PRN PRN Hypoglycemia Glucose 0 gm 08/25/23 15:29 Dextrose 40% Gel 15 Gm Tube PO 08/24/24 15:28 PRN PRN Hypoglycemia Heparin Sodium (Porcine) 3,000 unit 08/26/23 09:08 08/30/23 10:24 Heparin 10,000 Unit/10 Ml Vial IV 08/25/24 09:07 3,000 unit PRN PRN Administration Dialysis Heparin Sodium (Porcine) 2,000 unit 08/26/23 09:08 08/30/23 10:24 Heparin 10,000 Unit/10 Ml Vial IV 08/25/24 09:07 2,000 unit PRN PRN Administration Dialysis Sodium Chloride 1,000 mls @ 0 mls/hr 08/26/23 09:08 08/30/23 10:25 0.9% Sodium Chloride 1,000 Ml MISCELLANE 08/25/24 09:07 Infused .Q0M PRN Infusion Dialysis As Directed Cefepime HCl 1 gm in 50 mls @ 100 mls/hr 08/30/23 16:00 08/31/23 15:00 Maxipime IV 100 mls/hr Q24H GEENA Administration Insulin Aspart 0 units 08/25/23 17:00 09/01/23 09:09 Insulin Aspart 300 Units/3 Ml Insuln.Pen SUBCUT 08/24/24 16:59 Not Given TID.WM.HS [facility] Protocol Insulin Glargine 45 units 08/29/23 22:00 08/31/23 21:47 Insulin Glargine 300 Units/3 Ml Insuln.Pen SUBCUT 08/28/24 21:59 45 units QHS GEENA Administration Levothyroxine Sodium 100 mcg 08/27/23 06:30 09/01/23 06:11 Levothyroxine 100 Mcg Tablet PO 08/26/24 06:29 100 mcg DAILY.0630 GEENA Administration Liothyronine Sodium 5 mcg 08/26/23 09:00 09/01/23 08:24 Liothyronine 5 Mcg Tablet PO 08/25/24 08:59 5 mcg QAM GEENA Administration Metoprolol Succinate 25 mg 09/01/23 09:00 09/01/23 08:24 Metoprolol Succinate 25 Mg Tab.Er.24h PO 08/31/24 08:59 25 mg DAILY GEENA Administration Midodrine 5 mg 08/26/23 09:08 08/26/23 14:59 Midodrine 5 Mg Tablet PO 08/25/24 09:07 5 mg DAILY PRN Administration Hypotension Morphine Sulfate 2 mg 08/25/23 15:26 08/27/23 11:31 Morphine Sulfate 2 Mg/Ml Vial IV-PUSH 2 mg Q4H PRN Administration Pain Scale 8 - 10 Multi-Ingredient Cream 1 applic 08/31/23 09:00 09/01/23 08:24 Lanolin Alcohol/Mo/W.Pet/[place] (Minerin) 454 Gm Jar TOPICAL 08/30/24 08:59 1 applic DAILY GEENA Administration Nystatin 1 applic 08/31/23 09:00 09/01/23 08:24 Nystatin 100,000 Unit/Gram Powder 15 Gm Bottle TOPICAL 08/30/24 08:59 1 applic DAILY GEENA Administration Paricalcitol 7 mcg 08/26/23 10:00 08/30/23 10:23 Paricalcitol 10 Mcg/2 Ml Vial IV-PUSH 08/25/24 09:59 7 mcg MoWeFr@1000 GEENA Administration Prochlorperazine Edisylate 5 mg 08/25/23 15:26 Prochlorperazine Edisylate 10 Mg/2 Ml Vial IV-PUSH 08/24/24 15:25 Q4H PRN Nausea And Vomiting Sodium Chloride 0 ml 08/26/23 09:08 08/30/23 17:09 Sodium Chloride 0.9 % 10 Ml Syringe IV-PUSH 08/25/24 09:07 20 ml PRN PRN Administration Flush Sodium Chloride 0 ml 08/30/23 11:33 Sodium Chloride 0.9 % 10 Ml Syringe IV-PUSH 08/29/24 11:32 PRN PRN Flush Vancomycin HCl 1 each 08/25/23 15:32 Vancomycin - Pharmacy Dosing 1 Each Miscell IV ONCE PRN ZZ.Pharmacy Consult Protocol A&P - Hospitalist Assessment/Plan (1) Severe sepsis: (2) Cellulitis: (3) Diabetes mellitus: (4) ESRD (end stage renal disease): (5) PVD (peripheral vascular disease): (6) Ventricular bigeminy: (7) Septic shock: (8) Anemia: Plan Infected foot ulcer Osteomyelitis seen on MRI Status post foot surgery, debridement and bone culture Cx is + for MRSA and Pseudomonas ID recommended IV vancomycin and cefepime for several weeks. Midline was inserted into preparation for discharge. Hemodialysis, fluid, electrolytes and acid-base balance by nephrology team. Arterial studies showed mild peripheral vascular disease. Consideration to initiate aspirin and statin post operatively. Patient is already on Eliquis forDVT. DVT in the right femoral vein. Continue Eliquis. Bigeminy. Patient was started on beta-joi. Blood pressure is stable. Recent echocardiogram showed normal ejection fraction. Continue to monitor. Severe sepsis, septic shock and hypotension resolved after IV fluid infusion wasgiven yesterday. Continue IV antibiotic. Lactic is normal. Resolved. Diabetes, poor control. Blood sugars are fluctuating between hypo and hyperglycemia. Continue scale to level 3. Lantus to 45 units at bedtime. Anemia. Likely anemia of chronic disease. Patient may have other possible etiologies. He would need to have anemia workup that could be done and completed in the outpatient setting. Patient may need to have EGD, colonoscopy, age-appropriate cancer screening. These are to be arranged by PCP. Hypertension, poor control. Continue beta-joi. Added amlodipine 2.5 mg daily. Continue to monitor and titrate accordingly Functional impairment in the setting of foot osteomyelitis, needing IV antibiotic and multiple complex medical issues as listed above. Patient does not think that he can handle his care at home Plan is for SNF admission. Documented By: Denice Dahl MD 09/01/231155 Signed By: <Electronically signed by Denice Dahl MD> 09/01/23 1156 [facility] Work Phone: 1(372) 435-965707-21-2024 Progress note Author Alfredo Acosta [facility] September 01, 2023 10:00am Note Date/Time September 01, 2023 10:[address] [facility] [address] [place] [address] Infect. Disease Progress Note Signed Patient: Seth Murphy MR#: [id number] : 1955 Acct:[id number] Age/Sex: 67 / M Adm Date: 4 Loc: 4N Room: [address] [place] [address] Type: ADM IN Attending Dr: Denice Dahl MD Copies to: ~ Date of Service: 09/01/2023 Subjective Interval history: Patient appears comfortable this morning. Offers no complaints. States he has been a little weak but feels okay. Exam Physical Exam Vital Signs: Temp Pulse Resp BP Pulse Ox O2 Del Method 98.3 F 68 22 160/53 H 97 Room Air 09/01/23 07:43 09/01/23 07:43 09/01/23 07:43 09/01/23 07:43 09/01/23 07:43 09/01/23 07:43 Const General: cooperative, comfortable and no acute distress Orientation: oriented x3 HEENT Head: normal to inspection Neck Neck: normal visual inspection Chest Chest palpation & inspection: normal inspection of the chest Resp Auscultation: clear to auscultation bilaterally Cardio Rate: regular rate Rhythm: regular rhythm GI Inspection: normal to inspection Palpation: soft and nontender Auscultation: normal bowel sounds Skin Wounds: wounds noted (Right foot wrapped in surgical dressing) Neuro General: patient oriented x3 Extrem General: abnormal to inspection (see above) Objective Labs CBC/BMP: CBC, BMP 09/01/23 05:17 Corrected WBC 8.9 Uncorrected WBC Count 8.9 RBC 3.06 L Hgb 8.9 L Hct 26.7 L Plt Count 337 Sodium 134 L Potassium 4.5 Chloride 98 Carbon Dioxide 28.1 Anion Gap 12.4 BUN 24 Creatinine 6.97 H Calcium 9.7 Labs: 09/01/23 05:17 BUN 24 Creatinine 6.97 H Microbiology Microbiology: Microbiology - Results from entire visit 08/28/23 17:08 Bone - Biopsy Aerobic Culture - Final Methicillin Resis Staph Aureus 08/28/23 17:08 Bone - Biopsy Anaerobic Culture - Final No Anaerobes Isolated 3 Days 08/28/23 17:08 Bone - Biopsy Gram Stain - Final 08/28/23 17:09 Foot,Right - Drainage Aerobic Culture - Final Methicillin Resis Staph Aureus Pseudomonas aeruginosa 08/28/23 17:09 Foot,Right - Drainage Anaerobic Culture - Final No Anaerobes Isolated 3 Days 08/28/23 17:09 Foot,Right - Drainage Gram Stain - Final 08/28/23 17:08 Bone - Biopsy Aerobic Culture - Final Methicillin Resis Staph Aureus 08/28/23 17:08 Bone - Biopsy Anaerobic Culture - Final No Anaerobes Isolated 3 Days 08/28/23 17:08 Bone - Biopsy Gram Stain - Final 08/25/23 15:58 Blood - Left Hand Blood Culture - Final NO GROWTH 5 DAYS 08/25/23 16:07 Blood - Left Hand Blood Culture - Final NO GROWTH 5 DAYS 08/26/23 18:45 Foot,Right - Ulcer Superficial Wound Culture - Final Methicillin Resis Staph Aureus Pseudomonas aeruginosa Proteus mirabilis Allergies and Medications Allergies and Active Meds Allergies ticagrelor [From Brilinta] Allergy (Unknown, Verified 06/21/23 18:26) Headache chlorhexidine Allergy (Verified 06/21/23 18:26) Unknown Reaction coban Allergy (Uncoded 05/09/23 13:07) Unknown Reaction Active Medications Acetaminophen (Acetaminophen 325 Mg Tablet) 650 mg PO Q6HR PRN PRN Reason: Pain Scale 1 - 3 or fever Stop: 08/24/24 15:25 Last Admin: 09/01/23 06:11 Dose: 650 mg Apixaban (Apixaban 5 Mg Tablet) 10 mg PO BID GEENA Stop: 09/04/23 09:01 Last Admin: 09/01/23 08:24 Dose: 10 mg Apixaban (Apixaban 5 Mg Tablet) 5 mg PO BID GEENA Stop: 09/03/24 20:59 Atorvastatin Calcium (Atorvastatin 40 Mg Tablet) 40 mg PO QPM GEENA Stop: 08/24/24 20:59 Last Admin: 08/31/23 21:45 Dose: 40 mg Darbepoetin Thomas (Darbepoetin Thomas In Polysorbat 60 Mcg/Ml Vial) 60 mcg IV-PUSHWe@1000 GEENA; Protocol Stop: 08/27/24 09:59 Last Admin: 08/28/23 09:50 Dose: 60 mcg Dextrose (Dextrose 50% In Water 25 Gm/50 Ml Syringe) 0 gm IV-PUSH PRN PRN PRN Reason: Hypoglycemia Stop: 08/24/24 15:28 Glucose (Dextrose 40% Gel 15 Gm Tube) 0 gm PO PRN PRN PRN Reason: Hypoglycemia Stop: 08/24/24 15:28 Heparin Sodium (Porcine) (Heparin 10,000 Unit/10 Ml Vial) 3,000 unit IV PRN PRN PRN Reason: Dialysis Stop: 08/25/24 09:07 Last Admin: 08/30/23 10:24 Dose: 3,000 unit Heparin Sodium (Porcine) (Heparin 10,000 Unit/10 Ml Vial) 2,000 unit IV PRN PRN PRN Reason: Dialysis Stop: 08/25/24 09:07 Last Admin: 08/30/23 10:24 Dose: 2,000 unit Sodium Chloride (0.9% Sodium Chloride 1,000 Ml) 1,000 mls @ 0 mls/hr MISCELLANE.Q0M PRN PRN Reason: Dialysis Stop: 08/25/24 09:07 Last Infusion: 08/30/23 10:25 Dose: Infused Cefepime HCl (Maxipime) 1 gm in 50 mls @ 100 mls/hr IV Q24H [facility] Last Admin: 08/31/23 15:00 Dose: 100 mls/hr Insulin Aspart (Insulin Aspart 300 Units/3 Ml Insuln.Pen) 0 units SUBCUT TID.WM.HS [facility]; Protocol Stop: 08/24/24 16:59 Last Admin: 09/01/23 09:09 Dose: Not Given Insulin Glargine (Insulin Glargine 300 Units/3 Ml Insuln.Pen) 45 units SUBCUT QHS GEENA Stop: 08/28/24 21:59 Last Admin: 08/31/23 21:47 Dose: 45 units Levothyroxine Sodium (Levothyroxine 100 Mcg Tablet) 100 mcg PO DAILY.0630 [facility] Stop: 08/26/24 06:29 Last Admin: 09/01/23 06:11 Dose: 100 mcg Liothyronine Sodium (Liothyronine 5 Mcg Tablet) 5 mcg PO QAM GEENA Stop: 08/25/24 08:59 Last Admin: 09/01/23 08:24 Dose: 5 mcg Metoprolol Succinate (Metoprolol Succinate 25 Mg Tab.Er.24h) 25 mg PO DAILY GEENA Stop: 08/31/24 08:59 Last Admin: 09/01/23 08:24 Dose: 25 mg Midodrine (Midodrine 5 Mg Tablet) 5 mg PO DAILY PRN PRN Reason: Hypotension Stop: 08/25/24 09:07 Last Admin: 08/26/23 14:59 Dose: 5 mg Morphine Sulfate (Morphine Sulfate 2 Mg/Ml Vial) 2 mg IV-PUSH Q4H PRN PRN Reason: Pain Scale 8 - 10 Last Admin: 08/27/23 11:31 Dose: 2 mg Multi-Ingredient Cream (Lanolin Alcohol/Mo/W.Pet/[place] (Minerin) 454 Gm Jar) 1 applic TOPICAL DAILY GEENA Stop: 08/30/24 08:59 Last Admin: 09/01/23 08:24 Dose: 1 applic Nystatin (Nystatin 100,000 Unit/Gram Powder 15 Gm Bottle) 1 applic TOPICAL DAILY GEENA Stop: 08/30/24 08:59 Last Admin: 09/01/23 08:24 Dose: 1 applic Paricalcitol (Paricalcitol 10 Mcg/2 Ml Vial) 7 mcg IV-PUSH MoWeFr@1000 GEENA Stop: 08/25/24 09:59 Last Admin: 08/30/23 10:23 Dose: 7 mcg Prochlorperazine Edisylate (Prochlorperazine Edisylate 10 Mg/2 Ml Vial) 5 mg IV- PUSH Q4H PRN PRN Reason: Nausea And Vomiting Stop: 08/24/24 15:25 Sodium Chloride (Sodium Chloride 0.9 % 10 Ml Syringe) 0 ml IV-PUSH PRN PRN PRN Reason: Flush Stop: 08/25/24 09:07 Last Admin: 08/30/23 17:09 Dose: 20 ml Sodium Chloride (Sodium Chloride 0.9 % 10 Ml Syringe) 0 ml IV-PUSH PRN PRN PRN Reason: Flush Stop: 08/29/24 11:32 Vancomycin HCl (Vancomycin - Pharmacy Dosing 1 Each Miscell) 1 each IV ONCE PRN; Protocol PRN Reason: ZZ.Pharmacy Consult A&P - Infectious Disease Assessment/Plan (1) Osteomyelitis: (2) Ulcer of foot: (3) ESRD (end stage renal disease): Plan Bone culture + MRSA Right foot drainage with MRSA and Pseudomonas. Has midline. Needs 6 weeks of abx. Not sure if his midline will be appropriatefor that long. May need to switch to PO alternative in a few weeks after IV [facility] now being planned for discharge. Continue vancomycin and cefepime Documented By: Alfredo Acosta MD 09/01/23 0959 Signed By: <Electronically signed by MD Alfredo Acosta> 09/01/23 1000 [facility] Work Phone: [phone]) 619-300907-20-2024 Progress note Author Marina Agudelo [facility] August 31, 2023 1:45pm Note Date/Time August 31, 2023 1:[address] [facility] [address] [place] [address] Nephrology Progress Note Signed Patient: Seth Murphy MR#: [id number] : 1955 Acct:[id number] Age/Sex: 67 / M Adm Date: 4 Loc: 4N Room: 5R4895-4 Type: ADM IN Attending Dr: Denice Dahl MD Copies to: ~ Date of Service: 08/31/2023 Subjective Subjective Narrative: Mr. Murphy is a 67-year-old male with medical history significant for ESRD, DM, HTN, CAD, Peripheral vascular disease with amputation of left big toe. He presented to the [facility] due to suspected infection on his right foot. He is having increased pain and swelling over this past several days. On presentation to the ED he had fever, chills and confusion. He had no leukocytosis but was febrile, tachycardic, normotensive. Sodium 128, glucose 500, lactic acid 2.2. While at [place] he was started on IV vancomycin and Rocephin. He was transferred here for dialysis and continued sepsis management. Upon arrival to [facility] he was noted to have a fever of 102, tachycardia, blood pressure 150s over 50s. He appeared septic. 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 Patient receives dialysis on MWF schedule at [place] [facility] [place] Nephrology was consulted for ESRD management and dialysis. Interval history: Patient had full hemodialysis yesterday. Blood pressure was low yesterday and amlodipine was stopped. Metoprolol was stopped because of bradycardia Continue to looks ill with current osteomyelitis. Patient had med line to continue vancomycin and cefepime at home. He was not able to get PICC line because of stent Right foot in dressing. No more fever over the last 24 hours. Wound culture showed methicillin resistant Staph aureus and Pseudomonas aeruginosa. Bone Bx showed MRSA. Pt will need antibiotics for at least 6 weeks Exam Physical Exam Vital Signs: Temp Pulse Resp BP Pulse Ox O2 Del Method 36.9 C 40 L 16 154/70 H 96 Room Air 08/31/23 12:04 08/31/23 12:08/31/23 12:08/31/23 12:08/31/23 12:08/31/23 12:04 Narrative: General: Lying in bed. Ill-appearing. HEENT: No jaundice, pallor. Moist mucous membranes Cardiovascular: Regular rate and rhythm, no murmurs. No JVD Respiratory: Good bilateral air entry. No wheezing Abdominal: Nondistended, nontender Extremities: No edema. Amputation of left great toe. Bandaging over right footto cover suspected infected wound Right forearm fistula with palpable thrill Neurological: Awake, alert, oriented x 3 Psych: Normal mood and affect. Cooperative Vascular access: Right forearm AV fistula. He has small scab with surrounding erythema at the proximal end. Objective Intake and Output I&O: Intake & Output 08/28/23 08/29/23 08/30/23 08/31/23 23:59 23:59 23:59 23:59 Intake Total 1340 / 1340 2260 / 2260 1850 / 1850 200 / 200 Output Total 500 / 500 0 / 0 3010 / 3010 150 / 150 Balance 840 / 840 2260 / 2260 -1160 / -1160 50 / 50 Weight 94.7 kg 98.8 kg 97.6 kg 97.8 kg Meds and Allergies Meds: Active Medications Acetaminophen (Acetaminophen 325 Mg Tablet) 650 mg PO Q6HR PRN PRN Reason: Pain Scale 1 - 3 or fever Stop: 08/24/24 15:25 Last Admin: 08/26/23 14:59 Dose: 650 mg Apixaban (Apixaban 5 Mg Tablet) 10 mg PO BID [facility] Stop: 09/04/23 09:01 Last Admin: 08/31/23 09:15 Dose: 10 mg Apixaban (Apixaban 5 Mg Tablet) 5 mg PO BID [facility] Stop: 09/03/24 20:59 Atorvastatin Calcium (Atorvastatin 40 Mg Tablet) 40 mg PO QPM GEENA Stop: 08/24/24 20:59 Last Admin: 08/30/23 20:13 Dose: 40 mg Darbepoetin Thomas (Darbepoetin Thomas In Polysorbat 60 Mcg/Ml Vial) 60 mcg IV-PUSHWe@1000 GEENA; Protocol Stop: 08/27/24 09:59 Last Admin: 08/28/23 09:50 Dose: 60 mcg Dextrose (Dextrose 50% In Water 25 Gm/50 Ml Syringe) 0 gm IV-PUSH PRN PRN PRN Reason: Hypoglycemia Stop: 08/24/24 15:28 Glucose (Dextrose 40% Gel 15 Gm Tube) 0 gm PO PRN PRN PRN Reason: Hypoglycemia Stop: 08/24/24 15:28 Heparin Sodium (Porcine) (Heparin 10,000 Unit/10 Ml Vial) 3,000 unit IV PRN PRN PRN Reason: Dialysis Stop: 08/25/24 09:07 Last Admin: 08/30/23 10:24 Dose: 3,000 unit Heparin Sodium (Porcine) (Heparin 10,000 Unit/10 Ml Vial) 2,000 unit IV PRN PRN PRN Reason: Dialysis Stop: 08/25/24 09:07 Last Admin: 08/30/23 10:24 Dose: 2,000 unit Sodium Chloride (0.9% Sodium Chloride 1,000 Ml) 1,000 mls @ 0 mls/hr MISCELLANE.Q0M PRN PRN Reason: Dialysis Stop: 08/25/24 09:07 Last Infusion: 08/30/23 10:25 Dose: Infused Cefepime HCl (Maxipime) 1 gm in 50 mls @ 100 mls/hr IV Q24H [facility] Last Infusion: 08/30/23 17:45 Dose: Infused Insulin Aspart (Insulin Aspart 300 Units/3 Ml Insuln.Pen) 0 units SUBCUT TID.WM.HS [facility]; Protocol Stop: 08/24/24 16:59 Last Admin: 08/31/23 12:22 Dose: 10 units Insulin Glargine (Insulin Glargine 300 Units/3 Ml Insuln.Pen) 45 units SUBCUT QHS [facility] Stop: 08/28/24 21:59 Last Admin: 08/30/23 21:05 Dose: 45 units Levothyroxine Sodium (Levothyroxine 100 Mcg Tablet) 100 mcg PO DAILY.0630 [facility] Stop: 08/26/24 06:29 Last Admin: 08/31/23 06:39 Dose: 100 mcg Liothyronine Sodium (Liothyronine 5 Mcg Tablet) 5 mcg PO QAM [facility] Stop: 08/25/24 08:59 Last Admin: 08/31/23 09:15 Dose: 5 mcg Metoprolol Succinate (Metoprolol Succinate 25 Mg Tab.Er.24h) 25 mg PO DAILY [facility] Stop: 08/31/24 08:59 Midodrine (Midodrine 5 Mg Tablet) 5 mg PO DAILY PRN PRN Reason: Hypotension Stop: 08/25/24 09:07 Last Admin: 08/26/23 14:59 Dose: 5 mg Morphine Sulfate (Morphine Sulfate 2 Mg/Ml Vial) 2 mg IV-PUSH Q4H PRN PRN Reason: Pain Scale 8 - 10 Last Admin: 08/27/23 11:31 Dose: 2 mg Multi-Ingredient Cream (Lanolin Alcohol/Mo/W.Pet/[place] (Minerin) 454 Gm Jar) 1 applic TOPICAL DAILY GEENA Stop: 08/30/24 08:59 Nystatin (Nystatin 100,000 Unit/Gram Powder 15 Gm Bottle) 1 applic TOPICAL DAILY GEENA Stop: 08/30/24 08:59 Paricalcitol (Paricalcitol 10 Mcg/2 Ml Vial) 7 mcg IV-PUSH MoWeFr@1000 GEENA Stop: 08/25/24 09:59 Last Admin: 08/30/23 10:23 Dose: 7 mcg Prochlorperazine Edisylate (Prochlorperazine Edisylate 10 Mg/2 Ml Vial) 5 mg IV- PUSH Q4H PRN PRN Reason: Nausea And Vomiting Stop: 08/24/24 15:25 Sodium Chloride (Sodium Chloride 0.9 % 10 Ml Syringe) 0 ml IV-PUSH PRN PRN PRN Reason: Flush Stop: 08/25/24 09:07 Last Admin: 08/30/23 17:09 Dose: 20 ml Sodium Chloride (Sodium Chloride 0.9 % 10 Ml Syringe) 0 ml IV-PUSH PRN PRN PRN Reason: Flush Stop: 08/29/24 11:32 Vancomycin HCl (Vancomycin - Pharmacy Dosing 1 Each Miscell) 1 each IV ONCE PRN; Protocol PRN Reason: ZZ.Pharmacy Consult Allergies ticagrelor [From Brilinta] Allergy (Unknown, Verified 06/21/23 18:26) Headache chlorhexidine Allergy (Verified 06/21/23 18:26) Unknown Reaction coban Allergy (Uncoded 05/09/23 13:07) Unknown Reaction Results - Nephrology Labs 08/30/23 05:47 08/30/23 05:47 Radiology Impressions Impressions - last 24 hours: Any impression(s) listed above is documentation that was entered by the reading physician into a diagnostic report(s) for Seth Murphy. I have reviewed the report(s) and am incorporating any findings in the treatment plan of this patient where applicable. A&P - Nephrology Assessment/Plan (1) ESRD (end stage renal disease): Plan: Patient has ESRD related to diabetic nephropathy and hypertensive nephrosclerosis. He received hemodialysis in the dialysis unit on MWF schedule at [facility] (2) Severe sepsis: Plan: Patient has suspected sepsis due to infection of ulcer on his right foot. He isfebrile with elevated CRP. Patient was started empirically on vancomycin and Zosyn. ID and podiatry follows (3) Type 2 diabetes mellitus with diabetic chronic kidney disease: Plan: Patient has longstanding history of DM2 on insulin with multiple diabetic complications. He continues to have elevated hemoglobin A1c with poorly controlled diabetes (4) Anemia of renal disease: Plan: Hemoglobin at target 9 to 11 g/dL on erythropoietin IV with dialysis (5) Benign hypertension with end-stage renal disease: Plan: Blood pressure controlled with ultrafiltration. He takes midodrine for intradialytic hypotension (6) Secondary hyperparathyroidism: Plan: Patient is secondary hyperparathyroidism due to hyperphosphatemia ESRD. He currently takes calcium carbonate for hyperphosphatemia. He also receives IV Zemplar for dialysis (7) Deep vein thrombosis of right lower extremity: Plan: Patient is currently on enoxaparin 50 mcg subcu every 12 hours. Plan * Patient had full hemodialysis yesterday. No events. Blood pressure dropped after dialysis, amlodipine withheld. There is no edema. * Patient had medication like to continue vancomycin and cefepime as outpatient for 6 weeks. * Continue Aranesp 60 mcg weekly on Wednesdays. Hemoglobin at target. * Continue Zemplar 7 mcg 3 times a week. Phosphorus and intact PTH are being monitored as outpatient. * Blood pressure is controlled with ultrafiltration. Metoprolol was stopped due to bradycardia few days ago and amlodipine was stopped last night because of low blood pressure after dialysis in setting of infection. Patient was just restarted on low-dose metoprolol [address] Dahl Patient is being evaluated for SNF. He lives by himself and he will not able totake care of himself at this point. Documented By: Marina Agudelo MD 08/31/23 5067 Signed By: <Electronically signed by MD Marina Agudelo> 08/31/23 1196 [facility] Work Phone: 1([phone]) 479-112307-20-2024 Progress note Author Denice Dahl [facility] August 31, 2023 8:56am Note Date/Time August 31, 2023 8:[address] [facility] [address] [place] [address] Hospitalist Progress Note Signed Patient: Seth Murphy MR#: [id number] : 1955 Acct:[id number] Age/Sex: 67 / M Adm Date: 4 Loc: 4N Room: [id number] Type: ADM IN Attending Dr: Denice Dahl MD Copies to: ~ Date of Service: 08/31/2023 Subjective Subjective Narrative: Uneventful night. Exam Physical Exam Vital Signs: Temp Pulse Resp BP Pulse Ox O2 Del Method 98.1 F 45 L 14 154/64 H 95 Room Air 08/31/23 03:31 08/31/23 03:31 08/31/23 03:31 08/31/23 03:31 08/31/23 03:31 08/31/23 03:31 Narrative: [pt is awake and alert. oriented to place, time and person HEENT: [address] conjunctiva and NL buccal mucosa Neck: Supple, no tenderness Endocrine: No Thyromegaly. Vascular: No JVD or carotid bruit. Lymphatic: No cervical lymphadenopathy. Chest: CTA no DTP. Heart RRR, no extra sound or murmur. Abd: Soft, no tenderness, no rebound and no rigidity. Increase abd girth therefore clinically I could not exclude the possibility of intra abd mass or organomegaly. LE: Right foot is wrapped to be inspected by podiatry and ID. Neuro: A A O. Nl speech, comprehension and attention. Nl and symetrical motor and tone examination through out. []] Objective Lab Results 08/30/23 05:47 08/30/23 05:47 Microbiology Results Microbiology 08/28/23 17:08 Bone - Biopsy Aerobic Culture - Final Methicillin Resis Staph Aureus 08/28/23 17:08 Bone - Biopsy Anaerobic Culture - Final No Anaerobes Isolated 3 Days 08/28/23 17:08 Bone - Biopsy Gram Stain - Final 08/28/23 17:09 Foot,Right - Drainage Aerobic Culture - Final Methicillin Resis Staph Aureus Pseudomonas aeruginosa 08/28/23 17:09 Foot,Right - Drainage Anaerobic Culture - Final No Anaerobes Isolated 3 Days 08/28/23 17:09 Foot,Right - Drainage Gram Stain - Final 08/28/23 17:08 Bone - Biopsy Aerobic Culture - Final Methicillin Resis Staph Aureus 08/28/23 17:08 Bone - Biopsy Anaerobic Culture - Final No Anaerobes Isolated 3 Days 08/28/23 17:08 Bone - Biopsy Gram Stain - Final 08/25/23 15:58 Blood - Left Hand Blood Culture - Final NO GROWTH 5 DAYS 08/25/23 16:07 Blood - Left Hand Blood Culture - Final NO GROWTH 5 DAYS 08/26/23 18:45 Foot,Right - Ulcer Superficial Wound Culture - Final Methicillin Resis Staph Aureus Pseudomonas aeruginosa Proteus mirabilis Meds Allergies and Active Meds Allergies ticagrelor [From Brilinta] Allergy (Unknown, Verified 06/21/23 18:26) Headache chlorhexidine Allergy (Verified 06/21/23 18:26) Unknown Reaction coban Allergy (Uncoded 05/09/23 13:07) Unknown Reaction Active Meds: Active Medications Generic Name Dose Route Start Last Admin Trade Name Freq PRN Reason Stop Dose Admin Acetaminophen 650 mg 08/25/23 15:26 08/26/23 14:59 Acetaminophen 325 Mg Tablet PO 08/24/24 15:25 650 mg Q6HR PRN Administration Pain Scale 1 - 3 or fever Apixaban 10 mg 08/28/23 21:00 08/30/23 20:13 Apixaban 5 Mg Tablet PO 09/04/23 09:01 10 mg BID GEENA Administration Apixaban 5 mg 09/04/23 21:00 Apixaban 5 Mg Tablet PO 09/03/24 20:59 BID GEENA Atorvastatin Calcium 40 mg 08/25/23 21:00 08/30/23 20:13 Atorvastatin 40 Mg Tablet PO 08/24/24 20:59 40 mg QPM GEENA Administration Darbepoetin Thomas 60 mcg 08/28/23 10:00 08/28/23 09:50 Darbepoetin Thomas In Polysorbat 60 Mcg/Ml Vial IV-PUSH 08/27/24 09:59 60 mcg We@1000 GEENA Administration Protocol Dextrose 0 gm 08/25/23 15:29 Dextrose 50% In Water 25 Gm/50 Ml Syringe IV-PUSH 08/24/24 15:28 PRN PRN Hypoglycemia Glucose 0 gm 08/25/23 15:29 Dextrose 40% Gel 15 Gm Tube PO 08/24/24 15:28 PRN PRN Hypoglycemia Heparin Sodium (Porcine) 3,000 unit 08/26/23 09:08 08/30/23 10:24 Heparin 10,000 Unit/10 Ml Vial IV 08/25/24 09:07 3,000 unit PRN PRN Administration Dialysis Heparin Sodium (Porcine) 2,000 unit 08/26/23 09:08 08/30/23 10:24 Heparin 10,000 Unit/10 Ml Vial IV 08/25/24 09:07 2,000 unit PRN PRN Administration Dialysis Sodium Chloride 1,000 mls @ 0 mls/hr 08/26/23 09:08 08/30/23 10:25 0.9% Sodium Chloride 1,000 Ml MISCELLANE 08/25/24 09:07 Infused .Q0M PRN Infusion Dialysis As Directed Cefepime HCl 1 gm in 50 mls @ 100 mls/hr 08/30/23 16:00 08/30/23 17:45 Maxipime IV Infused Q24H GEENA Infusion Insulin Aspart 0 units 08/25/23 17:00 08/30/23 21:06 Insulin Aspart 300 Units/3 Ml Insuln.Pen SUBCUT 08/24/24 16:59 14 units TID.WM.HS GEENA Administration Protocol Insulin Glargine 45 units 08/29/23 22:00 08/30/23 21:05 Insulin Glargine 300 Units/3 Ml Insuln.Pen SUBCUT 08/28/24 21:59 45 units QHS GEENA Administration Levothyroxine Sodium 100 mcg 08/27/23 06:30 08/31/23 06:39 Levothyroxine 100 Mcg Tablet PO 08/26/24 06:29 100 mcg DAILY.0630 GEENA Administration Liothyronine Sodium 5 mcg 08/26/23 09:00 08/30/23 08:15 Liothyronine 5 Mcg Tablet PO 08/25/24 08:59 5 mcg QAM GEENA Administration Metoprolol Succinate 25 mg 09/01/23 09:00 Metoprolol Succinate 25 Mg Tab.Er.24h PO 08/31/24 08:59 DAILY GEENA Midodrine 5 mg 08/26/23 09:08 08/26/23 14:59 Midodrine 5 Mg Tablet PO 08/25/24 09:07 5 mg DAILY PRN Administration Hypotension Morphine Sulfate 2 mg 08/25/23 15:26 08/27/23 11:31 Morphine Sulfate 2 Mg/Ml Vial IV-PUSH 2 mg Q4H PRN Administration Pain Scale 8 - 10 Multi-Ingredient Cream 1 applic 08/31/23 09:00 Lanolin Alcohol/Mo/W.Pet/[place] (Minerin) 454 Gm Jar TOPICAL 08/30/24 08:59 DAILY GEENA Nystatin 1 applic 08/31/23 09:00 Nystatin 100,000 Unit/Gram Powder 15 Gm Bottle TOPICAL 08/30/24 08:59 DAILY GEENA Paricalcitol 7 mcg 08/26/23 10:00 08/30/23 10:23 Paricalcitol 10 Mcg/2 Ml Vial IV-PUSH 08/25/24 09:59 7 mcg MoWeFr@1000 GEENA Administration Prochlorperazine Edisylate 5 mg 08/25/23 15:26 Prochlorperazine Edisylate 10 Mg/2 Ml Vial IV-PUSH 08/24/24 15:25 Q4H PRN Nausea And Vomiting Sodium Chloride 0 ml 08/26/23 09:08 08/30/23 17:09 Sodium Chloride 0.9 % 10 Ml Syringe IV-PUSH 08/25/24 09:07 20 ml PRN PRN Administration Flush Sodium Chloride 0 ml 08/30/23 11:33 Sodium Chloride 0.9 % 10 Ml Syringe IV-PUSH 08/29/24 11:32 PRN PRN Flush Vancomycin HCl 1 each 08/25/23 15:32 Vancomycin - Pharmacy Dosing 1 Each Miscell IV ONCE PRN ZZ.Pharmacy Consult Protocol A&P - Hospitalist Assessment/Plan (1) Severe sepsis: (2) Cellulitis: (3) Diabetes mellitus: (4) ESRD (end stage renal disease): (5) PVD (peripheral vascular disease): (6) Ventricular bigeminy: (7) Septic shock: (8) Anemia: Plan Infected foot ulcer Osteomyelitis seen on MRI Status post foot surgery, debridement and bone culture Cx is + for MRSA and Pseudomonas ID recommended IV vancomycin and cefepime for several weeks. Midline was inserted into preparation for discharge. Hemodialysis, fluid, electrolytes and acid-base balance by nephrology team. Arterial studies showed mild peripheral vascular disease. Consideration to initiate aspirin and statin post operatively. Patient is already on Eliquis forDVT. DVT in the right femoral vein. Continue Eliquis. Bigeminy. Patient was started on beta-joi. Blood pressure is stable. Recent echocardiogram showed normal ejection fraction. Continue to monitor. Severe sepsis, septic shock and hypotension resolved after IV fluid infusion wasgiven yesterday. Continue IV antibiotic. Lactic is normal. Resolved. Diabetes, poor control. Blood sugars are fluctuating between hypo and hyperglycemia. Continue scale to level 3. Lantus to 45 units at bedtime. Anemia. Likely anemia of chronic disease. Patient may have other possible etiologies. He would need to have anemia workup that could be done and completed in the outpatient setting. Patient may need to have EGD, colonoscopy, age-appropriate cancer screening. These are to be arranged by PCP. Functional impairment in the setting of foot osteomyelitis, needing IV antibiotic and multiple complex medical issues as listed above. Patient does not think that he can handle his care at home Plan is for SNF admission. Documented By: Denice Dahl MD 08/31/23 0854 Signed By: <Electronically signed by Denice Dahl MD> 08/31/23 0856 [facility] Work Phone: 1(682) 304-524907-20-2024 Progress note Author Alfredo Acosta [facility] August 31, 2023 8:46am Note Date/Time August 31, 2023 8:[address] [facility] [address] [place] [address] Infect. Disease Progress Note Signed Patient: Seth Murphy MR#: [id number] : 1955 Acct:[id number] Age/Sex: 67 / M Adm Date: 4 Loc: 4N Room: [address] [place] [address] Type: ADM IN Attending Dr: Denice Dahl MD Copies to: ~ Date of Service: 08/31/2023 Subjective Interval history: Patient got a mid line yesterday [PICC could not be placed due to stent]. Offers no new complaints today. Exam Physical Exam Vital Signs: Temp Pulse Resp BP Pulse Ox O2 Del Method 98.1 F 45 L 14 154/64 H 95 Room Air 08/31/23 03:31 08/31/23 03:31 08/31/23 03:31 08/31/23 03:31 08/31/23 03:31 08/31/23 03:31 Const General: cooperative, comfortable and no acute distress Orientation: oriented x3 HEENT Head: normal to inspection Neck Neck: normal visual inspection Chest Chest palpation & inspection: normal inspection of the chest Resp Auscultation: clear to auscultation bilaterally Cardio Rate: regular rate Rhythm: regular rhythm GI Inspection: normal to inspection Palpation: soft and nontender Auscultation: normal bowel sounds Skin Wounds: wounds noted (Right foot wrapped in surgical dressing) Neuro General: patient oriented x3 Extrem General: abnormal to inspection (see above) Objective Labs CBC/BMP: CBC, BMP 08/30/23 05:47 Sodium 131 L Potassium 4.3 Chloride 96 L Carbon Dioxide 25.2 Anion Gap 14.1 BUN 22 Creatinine 6.91 H D Calcium 9.3 Labs: 08/30/23 05:47 BUN 22 Creatinine 6.91 H D Microbiology Microbiology: Microbiology - Results from entire visit 08/25/23 15:58 Blood - Left Hand Blood Culture - Final NO GROWTH 5 DAYS 08/25/23 16:07 Blood - Left Hand Blood Culture - Final NO GROWTH 5 DAYS 08/28/23 17:09 Foot,Right - Drainage Aerobic Culture - Final Methicillin Resis Staph Aureus Pseudomonas aeruginosa 08/28/23 17:09 Foot,Right - Drainage Anaerobic Culture - Preliminary No Anaerobes Isolated 2 Days 08/28/23 17:09 Foot,Right - Drainage Gram Stain - Final 08/28/23 17:08 Bone - Biopsy Aerobic Culture - Final Methicillin Resis Staph Aureus 08/28/23 17:08 Bone - Biopsy Anaerobic Culture - Preliminary No Anaerobes Isolated 2 Days 08/28/23 17:08 Bone - Biopsy Gram Stain - Final 08/28/23 17:08 Bone - Biopsy Aerobic Culture - Final Methicillin Resis Staph Aureus 08/28/23 17:08 Bone - Biopsy Anaerobic Culture - Preliminary No Anaerobes Isolated 2 Days 08/28/23 17:08 Bone - Biopsy Gram Stain - Final 08/26/23 18:45 Foot,Right - Ulcer Superficial Wound Culture - Final Methicillin Resis Staph Aureus Pseudomonas aeruginosa Proteus mirabilis Allergies and Medications Allergies and Active Meds Allergies ticagrelor [From Brilinta] Allergy (Unknown, Verified 06/21/23 18:26) Headache chlorhexidine Allergy (Verified 06/21/23 18:26) Unknown Reaction coban Allergy (Uncoded 05/09/23 13:07) Unknown Reaction Active Medications Acetaminophen (Acetaminophen 325 Mg Tablet) 650 mg PO Q6HR PRN PRN Reason: Pain Scale 1 - 3 or fever Stop: 08/24/24 15:25 Last Admin: 08/26/23 14:59 Dose: 650 mg Apixaban (Apixaban 5 Mg Tablet) 10 mg PO BID GEENA Stop: 09/04/23 09:01 Last Admin: 08/30/23 20:13 Dose: 10 mg Apixaban (Apixaban 5 Mg Tablet) 5 mg PO BID GEENA Stop: 09/03/24 20:59 Atorvastatin Calcium (Atorvastatin 40 Mg Tablet) 40 mg PO QPM GEENA Stop: 08/24/24 20:59 Last Admin: 08/30/23 20:13 Dose: 40 mg Darbepoetin Thomas (Darbepoetin Thomas In Polysorbat 60 Mcg/Ml Vial) 60 mcg IV-PUSHWe@1000 GEENA; Protocol Stop: 08/27/24 09:59 Last Admin: 08/28/23 09:50 Dose: 60 mcg Dextrose (Dextrose 50% In Water 25 Gm/50 Ml Syringe) 0 gm IV-PUSH PRN PRN PRN Reason: Hypoglycemia Stop: 08/24/24 15:28 Glucose (Dextrose 40% Gel 15 Gm Tube) 0 gm PO PRN PRN PRN Reason: Hypoglycemia Stop: 08/24/24 15:28 Heparin Sodium (Porcine) (Heparin 10,000 Unit/10 Ml Vial) 3,000 unit IV PRN PRN PRN Reason: Dialysis Stop: 08/25/24 09:07 Last Admin: 08/30/23 10:24 Dose: 3,000 unit Heparin Sodium (Porcine) (Heparin 10,000 Unit/10 Ml Vial) 2,000 unit IV PRN PRN PRN Reason: Dialysis Stop: 08/25/24 09:07 Last Admin: 08/30/23 10:24 Dose: 2,000 unit Sodium Chloride (0.9% Sodium Chloride 1,000 Ml) 1,000 mls @ 0 mls/hr MISCELLANE.Q0M PRN PRN Reason: Dialysis Stop: 08/25/24 09:07 Last Infusion: 08/30/23 10:25 Dose: Infused Cefepime HCl (Maxipime) 1 gm in 50 mls @ 100 mls/hr IV Q24H [facility] Last Infusion: 08/30/23 17:45 Dose: Infused Insulin Aspart (Insulin Aspart 300 Units/3 Ml Insuln.Pen) 0 units SUBCUT TID.WM.HS [facility]; Protocol Stop: 08/24/24 16:59 Last Admin: 08/30/23 21:06 Dose: 14 units Insulin Glargine (Insulin Glargine 300 Units/3 Ml Insuln.Pen) 45 units SUBCUT QHS GEENA Stop: 08/28/24 21:59 Last Admin: 08/30/23 21:05 Dose: 45 units Levothyroxine Sodium (Levothyroxine 100 Mcg Tablet) 100 mcg PO DAILY.629 [facility] Stop: 08/26/24 06:29 Last Admin: 08/31/23 06:39 Dose: 100 mcg Liothyronine Sodium (Liothyronine 5 Mcg Tablet) 5 mcg PO QAM [facility] Stop: 08/25/24 08:59 Last Admin: 08/30/23 08:15 Dose: 5 mcg Metoprolol Tartrate (Metoprolol Tartrate 25 Mg Tablet) 25 mg PO BID [facility] Stop: 08/25/24 17:59 Midodrine (Midodrine 5 Mg Tablet) 5 mg PO DAILY PRN PRN Reason: Hypotension Stop: 08/25/24 09:07 Last Admin: 08/26/23 14:59 Dose: 5 mg Morphine Sulfate (Morphine Sulfate 2 Mg/Ml Vial) 2 mg IV-PUSH Q4H PRN PRN Reason: Pain Scale 8 - 10 Last Admin: 08/27/23 11:31 Dose: 2 mg Multi-Ingredient Cream (Lanolin Alcohol/Mo/W.Pet/[place] (Minerin) 454 Gm Jar) 1 applic TOPICAL DAILY [facility] Stop: 08/30/24 08:59 Nystatin (Nystatin 100,000 Unit/Gram Powder 15 Gm Bottle) 1 applic TOPICAL DAILY [facility] Stop: 08/30/24 08:59 Paricalcitol (Paricalcitol 10 Mcg/2 Ml Vial) 7 mcg IV-PUSH MoWeFr@1000 [facility] Stop: 08/25/24 09:59 Last Admin: 08/30/23 10:23 Dose: 7 mcg Prochlorperazine Edisylate (Prochlorperazine Edisylate 10 Mg/2 Ml Vial) 5 mg IV- PUSH Q4H PRN PRN Reason: Nausea And Vomiting Stop: 08/24/24 15:25 Sodium Chloride (Sodium Chloride 0.9 % 10 Ml Syringe) 0 ml IV-PUSH PRN PRN PRN Reason: Flush Stop: 08/25/24 09:07 Last Admin: 08/30/23 17:09 Dose: 20 ml Sodium Chloride (Sodium Chloride 0.9 % 10 Ml Syringe) 0 ml IV-PUSH PRN PRN PRN Reason: Flush Stop: 08/29/24 11:32 Vancomycin HCl (Vancomycin - Pharmacy Dosing 1 Each Miscell) 1 each IV ONCE PRN; Protocol PRN Reason: ZZ.Pharmacy Consult A&P - Infectious Disease Assessment/Plan (1) Osteomyelitis: (2) Ulcer of foot: (3) ESRD (end stage renal disease): Plan Bone culture + MRSA Right foot drainage with MRSA and Pseudomonas. Has midline. Needs 6 weeks of abx. Not sure if his midline will be appropriatefor that long. May need to switch to PO alternative in a few weeks after IV IV Vanco and Cefepime to be arranged for home. Documented By: Alfredo Acosta MD 08/31/23 0843 Signed By: <Electronically signed by MD Alfredo Acosta> 08/31/23 0846 [facility] Work Phone: [phone]) 943-743407-19-2024 Progress note Author Marina [facility] August 30, 2023 12:45pm Note Date/Time August 30, 2023 12:[address] [facility] [address] [place] [address] Nephrology Progress Note Signed Patient: Seth Murphy MR#: [id number] : 1955 Acct:[id number] Age/Sex: 67 / M Adm Date: 4 Loc: 4N Room: [address] [place] [address] Type: ADM IN Attending Dr: Denice Dahl MD Copies to: ~ Date of Service: 08/30/2023 Subjective Subjective Narrative: Mr. Murphy is a 67-year-old male with medical history significant for ESRD, DM, HTN, CAD, Peripheral vascular disease with amputation of left big toe. He presented to the [facility] due to suspected infection on his right foot. He is having increased pain and swelling over this past several days. On presentation to the ED he had fever, chills and confusion. He had no leukocytosis but was febrile, tachycardic, normotensive. Sodium 128, glucose 500, lactic acid 2.2. While at [place] he was started on IV vancomycin and Rocephin. He was transferred here for dialysis and continued sepsis management. Upon arrival to [facility] he was noted to have a fever of 102, tachycardia, blood pressure 150s over 50s. He appeared septic. 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 Patient receives dialysis on MWF schedule at [place] [facility] [place] Nephrology was consulted for ESRD management and dialysis. Interval history: Pt is being seen and examined on HD. Looks ill, sleeping on dalysis. Right foot in dressing. No more fever over the last 24 hours. Patient currently on vancomycin and Zosyn. Wound culture showed penicillin resistant Staph aureus and Pseudomonas aeruginosa. Bone Bx showed MRSA. Blood cultures are negative x 4 days. Pt will need antibiotics for at least 6 weeks Exam Physical Exam Vital Signs: Temp Pulse Resp BP Pulse Ox O2 Del Method 36.8 C 47 L 18 105/57 L 98 Room Air 08/30/23 10:15 08/30/23 11:30 08/30/23 10:15 08/30/23 11:30 08/30/23 10:15 08/30/23 10:15 Narrative: General: Lying in bed. Ill-appearing. HEENT: No jaundice, pallor. Moist mucous membranes Cardiovascular: Regular rate and rhythm, no murmurs. No JVD Respiratory: Good bilateral air entry. No wheezing Abdominal: Nondistended, nontender Extremities: No edema. Amputation of left great toe. Bandaging over right footto cover suspected infected wound Right forearm fistula with palpable thrill Neurological: Awake, alert, oriented x 3 Psych: Normal mood and affect. Cooperative Vascular access: Right forearm AV fistula. He has small scab with surrounding erythema at the proximal end. Objective Intake and Output I&O: Intake & Output 08/27/23 08/28/23 08/29/23 08/30/23 23:59 23:59 23:59 23:59 Intake Total 620 / 620 1340 / 1340 2260 / 2260 1200 / 1200 Output Total 0 / 0 500 / 500 0 / 0 0 / 0 Balance 620 / 620 840 / 840 2260 / 2260 1200 / 1200 Weight 91.5 kg 94.7 kg 98.8 kg 97.6 kg Meds and Allergies Meds: Active Medications Acetaminophen (Acetaminophen 325 Mg Tablet) 650 mg PO Q6HR PRN PRN Reason: Pain Scale 1 - 3 or fever Stop: 08/24/24 15:25 Last Admin: 08/26/23 14:59 Dose: 650 mg Apixaban (Apixaban 5 Mg Tablet) 10 mg PO BID GEENA Stop: 09/04/23 09:01 Last Admin: 08/30/23 08:15 Dose: 10 mg Apixaban (Apixaban 5 Mg Tablet) 5 mg PO BID GEENA Stop: 09/03/24 20:59 Atorvastatin Calcium (Atorvastatin 40 Mg Tablet) 40 mg PO QPM GEENA Stop: 08/24/24 20:59 Last Admin: 08/29/23 22:01 Dose: 40 mg Darbepoetin Thomas (Darbepoetin [place] In Polysorbat 60 Mcg/Ml Vial) 60 mcg IV-PUSHWe@1000 GEENA; Protocol Stop: 08/27/24 09:59 Last Admin: 08/28/23 09:50 Dose: 60 mcg Dextrose (Dextrose 50% In Water 25 Gm/50 Ml Syringe) 0 gm IV-PUSH PRN PRN PRN Reason: Hypoglycemia Stop: 08/24/24 15:28 Glucose (Dextrose 40% Gel 15 Gm Tube) 0 gm PO PRN PRN PRN Reason: Hypoglycemia Stop: 08/24/24 15:28 Heparin Sodium (Porcine) (Heparin 10,000 Unit/10 Ml Vial) 3,000 unit IV PRN PRN PRN Reason: Dialysis Stop: 08/25/24 09:07 Last Admin: 08/30/23 10:24 Dose: 3,000 unit Heparin Sodium (Porcine) (Heparin 10,000 Unit/10 Ml Vial) 2,000 unit IV PRN PRN PRN Reason: Dialysis Stop: 08/25/24 09:07 Last Admin: 08/30/23 10:24 Dose: 2,000 unit Sodium Chloride (0.9% Sodium Chloride 1,000 Ml) 1,000 mls @ 0 mls/hr MISCELLANE.Q0M PRN PRN Reason: Dialysis Stop: 08/25/24 09:07 Last Infusion: 08/30/23 10:25 Dose: Infused Cefepime HCl (Maxipime) 1 gm in 50 mls @ 100 mls/hr IV Q24H [facility] Insulin Aspart (Insulin Aspart 300 Units/3 Ml Insuln.Pen) 0 units SUBCUT TID.WM.HS [facility]; Protocol Stop: 08/24/24 16:59 Last Admin: 08/30/23 08:15 Dose: 4 units Insulin Glargine (Insulin Glargine 300 Units/3 Ml Insuln.Pen) 45 units SUBCUT QHS [facility] Stop: 08/28/24 21:59 Last Admin: 08/29/23 22:03 Dose: 45 units Levothyroxine Sodium (Levothyroxine 100 Mcg Tablet) 100 mcg PO DAILY.629 [facility] Stop: 08/26/24 06:29 Last Admin: 08/30/23 06:11 Dose: 100 mcg Liothyronine Sodium (Liothyronine 5 Mcg Tablet) 5 mcg PO QAM [facility] Stop: 08/25/24 08:59 Last Admin: 08/30/23 08:15 Dose: 5 mcg Metoprolol Tartrate (Metoprolol Tartrate 25 Mg Tablet) 25 mg PO BID [facility] Stop: 08/25/24 17:59 Midodrine (Midodrine 5 Mg Tablet) 5 mg PO DAILY PRN PRN Reason: Hypotension Stop: 08/25/24 09:07 Last Admin: 08/26/23 14:59 Dose: 5 mg Morphine Sulfate (Morphine Sulfate 2 Mg/Ml Vial) 2 mg IV-PUSH Q4H PRN PRN Reason: Pain Scale 8 - 10 Last Admin: 08/27/23 11:31 Dose: 2 mg Paricalcitol (Paricalcitol 10 Mcg/2 Ml Vial) 7 mcg IV-PUSH MoWeFr@1000 [facility] Stop: 08/25/24 09:59 Last Admin: 08/30/23 10:23 Dose: 7 mcg Prochlorperazine Edisylate (Prochlorperazine Edisylate 10 Mg/2 Ml Vial) 5 mg IV- PUSH Q4H PRN PRN Reason: Nausea And Vomiting Stop: 08/24/24 15:25 Sodium Chloride (Sodium Chloride 0.9 % 10 Ml Syringe) 0 ml IV-PUSH PRN PRN PRN Reason: Flush Stop: 08/25/24 09:07 Last Admin: 08/30/23 10:25 Dose: 10 ml Sodium Chloride (Sodium Chloride 0.9 % 10 Ml Syringe) 0 ml IV-PUSH PRN PRN PRN Reason: Flush Stop: 08/29/24 11:32 Vancomycin HCl (Vancomycin - Pharmacy Dosing 1 Each Miscell) 1 each IV ONCE PRN; Protocol PRN Reason: ZZ.Pharmacy Consult Allergies ticagrelor [From Brilinta] Allergy (Unknown, Verified 06/21/23 18:26) Headache chlorhexidine Allergy (Verified 06/21/23 18:26) Unknown Reaction coban Allergy (Uncoded 05/09/23 13:07) Unknown Reaction Results - Nephrology Labs 08/30/23 05:47 08/30/23 05:47 Labs: 08/30/23 05:47 BUN 22 Creatinine 6.91 H D Albumin 2.6 L Radiology Impressions Impressions - last 24 hours: Any impression(s) listed above is documentation that was entered by the reading physician into a diagnostic report(s) for Seth Murphy. I have reviewed the report(s) and am incorporating any findings in the treatment plan of this patient where applicable. A&P - Nephrology Assessment/Plan (1) ESRD (end stage renal disease): Plan: Patient has ESRD related to diabetic nephropathy and hypertensive nephrosclerosis. He received hemodialysis in the dialysis unit on MWF schedule at [facility] (2) Severe sepsis: Plan: Patient has suspected sepsis due to infection of ulcer on his right foot. He isfebrile with elevated CRP. Patient was started empirically on vancomycin and Zosyn. ID and podiatry follows (3) Type 2 diabetes mellitus with diabetic chronic kidney disease: Plan: Patient has longstanding history of DM2 on insulin with multiple diabetic complications. He continues to have elevated hemoglobin A1c with poorly controlled diabetes (4) Anemia of renal disease: Plan: Hemoglobin at target 9 to 11 g/dL on erythropoietin IV with dialysis (5) Benign hypertension with end-stage renal disease: Plan: Blood pressure controlled with ultrafiltration. He takes midodrine for intradialytic hypotension (6) Secondary hyperparathyroidism: Plan: Patient is secondary hyperparathyroidism due to hyperphosphatemia ESRD. He currently takes calcium carbonate for hyperphosphatemia. He also receives IV Zemplar for dialysis (7) Deep vein thrombosis of right lower extremity: Plan: Patient is currently on enoxaparin 50 mcg subcu every 12 hours. Plan * HD x 4 hrs, 3 K bath, 2.5 L UF he gets minimal dose heparin 3000/1000 U , on Eliquis now. * Pt is on vancomycin and Zosyn per ID recommendation. Pt will get PICC line and continue Vancomycin an Cefepime as outpatient X 6 weeks per ID * Continue Aranesp 60 mcg weekly on Wednesdays. Hemoglobin at target. * Continue Zemplar 7 mcg 3 times a week. Phosphorus and intact PTH are being monitored as outpatient. * Blood pressure is controlled with ultrafiltration. Metoprolol was stopped due to bradycardia Documented By: Marina Agudelo MD 08/30/23 1231 Signed By: <Electronically signed by MD Marina Agudelo> 08/30/23 4661 [facility] Work Phone: 1(112) 514-981307-19-2024 Progress note Author Felisa Win [facility] August 30, 2023 12:05pm Note Date/Time August 30, 2023 11:[address] [facility] [address] [place] [address] Podiatry Progress Note Signed Patient: Seth Murphy MR#: [id number] : 1955 Acct:[id number] Age/Sex: 67 / M Adm Date: 4 Loc: Room: [address] [place] [address] Type: ADM IN Attending Dr: Denice Dahl MD Copies to: ~ Subjective Subjective Date of Service: Date of Service: 08/30/2023 Time of Service: 11:32 Narrative: Mr. Murphy is a 67 year old male who was seen this time for follow-up regarding infected diabetic ulceration medial right foot around the first metatarsophalangeal joint. This is postop visit #2 status post bone biopsy right first metatarsal, right hallux and ulceration debridement right foot medial first metatarsophalangeal joint diabetic ulceration. Patient has no new podiatric concerns since last examination. Overall patient doing well. Patientdid admit to good appetite and did eat his breakfast this morning he is startingto eat his lunch at this time please note. Patient denies fevers, chills, nausea, vomiting, sweats, diarrhea, chest pain orcalf pain he denies injuries or trauma to right foot. Wound care right foot: Medihoney applied topically Exam Physical Exam Vital Signs: Temp Pulse Resp BP Pulse Ox O2 Del Method 98.2 F 68 18 127/43 L 98 Room Air 08/30/23 10:15 08/30/23 10:30 08/30/23 10:15 08/30/23 10:30 08/30/23 10:15 08/30/23 10:15 Narrative: Patient is awake alert and orient x 3 and patient is starting his lunch. He is in no distress. Dressing is intact right lower extremity easily removed for examination. Vascular: Decreased pedal pulses right foot. Please see recent noninvasive vascular studies performed, patient does have peripheral arterial disease history. He also has deep vein thrombosis right leg. Please see result also performed earlier today. Neurological: Neuropathy present right lower extremity including motor, autonomic, sensory types. There is no pain. Also skeletal strength shows significant weakness to the intact toes right foot. He was not taken out of bed for muscle weightbearing examination, or gait evaluation as ulceration was exposed per my consult. Orthopedic examination: Shows no sign of exposed bone first metatarsophalangeal joint ulceration that was very deep and could easily have exposure to the joint capsule though I did visibly did not see it at this time. Dermatology: Ulceration medial right foot first metatarsophalangeal joint diabetic chronic ulceration which looks better after recent surgery. There is no sign of infection the patient's foot clinically there is no sign of cellulitis, erythema, edema, calor, pain or malodor or necrosis. The skin incisions where the bone biopsy was obtained medial right foot first metatarsal and right hallux look excellent with nylon suture intact. Medial right foot diabetic ulceration first MPJ location measurement appears to be 1.0 cm x 1.0 cmtime 0.2 cm in depth. No pain to palpation or examination. Culture: 08-28-2023 cultures intraoperatively right foot including bone biopsy right foot first metatarsal, right hallux and deep swab culture of drainage fromright foot first metatarsophalangeal joint diabetic ulceration are positive for MRSA. X-rays 08-25-23: Right foot shows multiple calcifications throughout the entire foot especially in the intermetatarsal region there is mild swelling around the first metatarsophalangeal joint where ulceration is located. Osteopenia is diffuse. The medial aspect the first metatarsal it is somewhat hard to appreciate the cortex and 2 views therefore I would have to suspect there may beunderlying low-grade osteomyelitis MRI definitely is warranted at this time for further evaluation. Joint space narrowing also noted first MPJ due to osteoarthritis. MRI right foot 08-27-2023: Concern for underlying osteomyelitis first metatarsal and proximal phalanx right hallux. No fluid collection noted. I we have reviewed the films I agree with the reading. Assessment/Plan (1) Diabetic ulcer of right foot associated with diabetes mellitus due to underlying condition, with fat layer exposed: Plan: 1. Patient was seen today for postop visit #2 status post ulcer debridement right foot medial first metatarsophalangeal joint, as well as bone biopsy right foot first metatarsal and right hallux and antibiotic lavage at each of those locations. 2. Physical examination was performed as well as chart which was reviewed at length. 3. Patient's foot was examined at this time there is no changes overall no signof cellulitis. Bone and tissue cultures Positive for MRSA. Patient will need long- term IV antibiotics in order to treat the osteomyelitis to the right foot. ID is following patient. 4. Rx: Wound care: Vashe she should be applied to a gauze to wipe weight ulceration medial right foot all nonviable tissue, drainage or debris or bleeding, apply a new Vashe soaked gauze to the ulceration apply for 5 minutes, then remove, wash foot, apply Eucerin skin cream to not open areas of skin, applied nystatin antifungal powder between toes, apply Medihoney to the ulceration medial right foot and applied dry sterile dressing daily. 5. Offload bilateral feet and heels at all time. 6. Patient's wound is stable, wound care appropriate. I am fine with his discharge once antibiotic therapy is finalized with [facility] for dressing changes to the right foot which he has had established. He is a patient of Dr. Schwarz at [place] [facility] and would like to follow-up with him for continuedcare. Code(s): E08.621 - Diabetes mellitus due to underlying condition with foot ulcer; L97.512- Non-pressure chronic ulcer of other part of right foot with fat layer exposed (2) Type 2 diabetes mellitus with diabetic chronic kidney disease: Plan: This is being treated by medical physician. Code(s): E11.22 - Type 2 diabetes mellitus with diabetic chronic kidney disease (3) ESRD (end stage renal disease): Plan: This is being treated by medical physician. Code(s): N18.6 - End stage renal disease (4) Diabetes mellitus with diabetic neuropathy: Plan: This is being treated by medical physician. Code(s): E11.40 - Type 2 diabetes mellitus with diabetic neuropathy, unspecified (5) Peripheral arterial disease: Plan: Vascular consult has already been performed earlier today as well as DVT was positive on venous duplex-please to review patient's chart. Code(s): I73.9 - Peripheral vascular disease, unspecified (6) Deep vein thrombosis of right lower extremity: Plan: Vascular consult has already been performed. Please see reports in patient's chart. Code(s): I82.401 - Acute embolism and thrombosis of unspecified deep veins of right lowerextremity Plan Positive DVT was identified on venous duplex earlier today-please see vascular consultation/medical management for treatment. Documented By: Felisa Win DPM 08/30/23 1 132 Signed By: <Electronically signed by ISAIAH Win> 08/30/23 1205 [facility] Work Phone: [phone] 541-865207-19-2024 Progress note Author Alfredo Acosta [facility] August 30, 2023 11:37am Note Date/Time August 30, 2023 11:[address] [facility] [address] [place] [address] Infect. Disease Progress Note Signed Patient: Seth Murphy MR#: [id number] : 1955 Acct:[id number] Age/Sex: 67 / M Adm Date: 4 Loc: N Room: 8K7212-0 Type: ADM IN Attending Dr: Denice Dahl MD Copies to: ~ Date of Service: 08/30/2023 Subjective Interval history: Seen in HD. Asleep. Easy to awake. Denies new complaints. Exam Physical Exam Vital Signs: Temp Pulse Resp BP Pulse Ox O2 Del Method 98.2 F 68 18 127/43 L 98 Room Air 08/30/23 10:15 08/30/23 10:30 08/30/23 10:15 08/30/23 10:30 08/30/23 10:15 08/30/23 10:15 Const General: cooperative, comfortable and no acute distress Orientation: oriented x3 HEENT Head: normal to inspection Neck Neck: normal visual inspection Chest Chest palpation & inspection: normal inspection of the chest Resp Auscultation: clear to auscultation bilaterally Cardio Rate: regular rate Rhythm: regular rhythm GI Inspection: normal to inspection Palpation: soft and nontender Auscultation: normal bowel sounds Skin Wounds: wounds noted (Right foot wrapped in surgical dressing) Neuro General: patient oriented x3 Extrem General: abnormal to inspection (see above) Objective Labs CBC/BMP: CBC, BMP 08/30/23 05:47 Corrected WBC 6.3 Uncorrected WBC Count 6.3 RBC 3.23 L Hgb 9.2 L Hct 28.0 L Plt Count 216 Sodium 131 L Potassium 4.3 Chloride 96 L Carbon Dioxide 25.2 Anion Gap 14.1 BUN 22 Creatinine 6.91 H D Calcium 9.3 Labs: 08/30/23 05:47 BUN 22 Creatinine 6.91 H D Microbiology Microbiology: Microbiology - Results from entire visit 08/28/23 17:09 Foot,Right - Drainage Aerobic Culture - Final Methicillin Resis Staph Aureus Pseudomonas aeruginosa 08/28/23 17:09 Foot,Right - Drainage Anaerobic Culture - Preliminary No Anaerobes Isolated 2 Days 08/28/23 17:09 Foot,Right - Drainage Gram Stain - Final 08/28/23 17:08 Bone - Biopsy Aerobic Culture - Final Methicillin Resis Staph Aureus 08/28/23 17:08 Bone - Biopsy Anaerobic Culture - Preliminary No Anaerobes Isolated 2 Days 08/28/23 17:08 Bone - Biopsy Gram Stain - Final 08/28/23 17:08 Bone - Biopsy Aerobic Culture - Final Methicillin Resis Staph Aureus 08/28/23 17:08 Bone - Biopsy Anaerobic Culture - Preliminary No Anaerobes Isolated 2 Days 08/28/23 17:08 Bone - Biopsy Gram Stain - Final 08/26/23 18:45 Foot,Right - Ulcer Superficial Wound Culture - Final Methicillin Resis Staph Aureus Pseudomonas aeruginosa Proteus mirabilis 08/25/23 15:58 Blood - Left Hand Blood Culture - Preliminary No Growth 4 Days 08/25/23 16:07 Blood - Left Hand Blood Culture - Preliminary No Growth 4 Days Allergies and Medications Allergies and Active Meds Allergies ticagrelor [From Brilinta] Allergy (Unknown, Verified 06/21/23 18:26) Headache chlorhexidine Allergy (Verified 06/21/23 18:26) Unknown Reaction coban Allergy (Uncoded 05/09/23 13:07) Unknown Reaction Active Medications Acetaminophen (Acetaminophen 325 Mg Tablet) 650 mg PO Q6HR PRN PRN Reason: Pain Scale 1 - 3 or fever Stop: 08/24/24 15:25 Last Admin: 08/26/23 14:59 Dose: 650 mg Apixaban (Apixaban 5 Mg Tablet) 10 mg PO BID GEENA Stop: 09/04/23 09:01 Last Admin: 08/30/23 08:15 Dose: 10 mg Apixaban (Apixaban 5 Mg Tablet) 5 mg PO BID GEENA Stop: 09/03/24 20:59 Atorvastatin Calcium (Atorvastatin 40 Mg Tablet) 40 mg PO QPM GEENA Stop: 08/24/24 20:59 Last Admin: 08/29/23 22:01 Dose: 40 mg Darbepoetin Thomas (Darbepoetin Thomas In Polysorbat 60 Mcg/Ml Vial) 60 mcg IV-PUSHWe@1000 GEENA; Protocol Stop: 08/27/24 09:59 Last Admin: 08/28/23 09:50 Dose: 60 mcg Dextrose (Dextrose 50% In Water 25 Gm/50 Ml Syringe) 0 gm IV-PUSH PRN PRN PRN Reason: Hypoglycemia Stop: 08/24/24 15:28 Glucose (Dextrose 40% Gel 15 Gm Tube) 0 gm PO PRN PRN PRN Reason: Hypoglycemia Stop: 08/24/24 15:28 Heparin Sodium (Porcine) (Heparin 10,000 Unit/10 Ml Vial) 3,000 unit IV PRN PRN PRN Reason: Dialysis Stop: 08/25/24 09:07 Last Admin: 08/30/23 10:24 Dose: 3,000 unit Heparin Sodium (Porcine) (Heparin 10,000 Unit/10 Ml Vial) 2,000 unit IV PRN PRN PRN Reason: Dialysis Stop: 08/25/24 09:07 Last Admin: 08/30/23 10:24 Dose: 2,000 unit Piperacillin Sod/Tazobactam Sod (Zosyn) 4.5 gm in 100 mls @ 25 mls/hr IV Q12H GEENA Last Admin: 08/30/23 00:13 Dose: 25 mls/hr Sodium Chloride (0.9% Sodium Chloride 1,000 Ml) 1,000 mls @ 0 mls/hr MISCELLANE.Q0M PRN PRN Reason: Dialysis Stop: 08/25/24 09:07 Last Infusion: 08/30/23 10:25 Dose: Infused Insulin Aspart (Insulin Aspart 300 Units/3 Ml Insuln.Pen) 0 units SUBCUT TID.WM.HS [facility]; Protocol Stop: 08/24/24 16:59 Last Admin: 08/30/23 08:15 Dose: 4 units Insulin Glargine (Insulin Glargine 300 Units/3 Ml Insuln.Pen) 45 units SUBCUT QHS [facility] Stop: 08/28/24 21:59 Last Admin: 08/29/23 22:03 Dose: 45 units Levothyroxine Sodium (Levothyroxine 100 Mcg Tablet) 100 mcg PO DAILY.629 [facility] Stop: 08/26/24 06:29 Last Admin: 08/30/23 06:11 Dose: 100 mcg Liothyronine Sodium (Liothyronine 5 Mcg Tablet) 5 mcg PO QAM [facility] Stop: 08/25/24 08:59 Last Admin: 08/30/23 08:15 Dose: 5 mcg Metoprolol Tartrate (Metoprolol Tartrate 25 Mg Tablet) 25 mg PO BID [facility] Stop: 08/25/24 17:59 Midodrine (Midodrine 5 Mg Tablet) 5 mg PO DAILY PRN PRN Reason: Hypotension Stop: 08/25/24 09:07 Last Admin: 08/26/23 14:59 Dose: 5 mg Morphine Sulfate (Morphine Sulfate 2 Mg/Ml Vial) 2 mg IV-PUSH Q4H PRN PRN Reason: Pain Scale 8 - 10 Last Admin: 08/27/23 11:31 Dose: 2 mg Paricalcitol (Paricalcitol 10 Mcg/2 Ml Vial) 7 mcg IV-PUSH MoWeFr@1000 [facility] Stop: 08/25/24 09:59 Last Admin: 08/30/23 10:23 Dose: 7 mcg Prochlorperazine Edisylate (Prochlorperazine Edisylate 10 Mg/2 Ml Vial) 5 mg IV- PUSH Q4H PRN PRN Reason: Nausea And Vomiting Stop: 08/24/24 15:25 Sodium Chloride (Sodium Chloride 0.9 % 10 Ml Syringe) 0 ml IV-PUSH PRN PRN PRN Reason: Flush Stop: 08/25/24 09:07 Last Admin: 08/30/23 10:25 Dose: 10 ml Vancomycin HCl (Vancomycin - Pharmacy Dosing 1 Each Miscell) 1 each IV ONCE PRN; Protocol PRN Reason: ZZ.Pharmacy Consult A&P - Infectious Disease Assessment/Plan (1) Ulcer of foot: (2) ESRD (end stage renal disease): (3) Osteomyelitis: Plan Bone culture + MRSA Right foot drainage with MRSA and Pseudomonas. PICC IV Vanco and Cefepime to be arranged for home. Documented By: Alfredo Acosta MD 08/30/231133 Signed By: <Electronically signed by MD Alfrdeo Acosta> 08/30/231136 [facility] Work Phone: 1(349) 441-382107-19-2024 Progress note Author Denice Dahl [facility] August 30, 2023 10:25am Note Date/Time August 30, 2023 10:[address] [facility] [address] [place] [address] Hospitalist Progress Note Signed Patient: Seth Murphy MR#: [id number] : 1955 Acct:[id number] Age/Sex: 67 / M Adm Date: 4 Loc: 4N Room: [address] [place] [address] Type: ADM IN Attending Dr: Denice Dahl MD Copies to: ~ Date of Service: 08/30/2023 Exam Physical Exam Vital Signs: Temp Pulse Resp BP Pulse Ox O2 Del Method 98.2 F 68 18 117/58 L 98 Room Air 08/30/23 10:15 08/30/23 10:19 08/30/23 10:15 08/30/23 10:19 08/30/23 10:15 08/30/23 10:15 Narrative: [pt is awake and alert. oriented to place, time and person HEENT: [address] conjunctiva and NL buccal mucosa Neck: Supple, no tenderness Endocrine: No Thyromegaly. Vascular: No JVD or carotid bruit. Lymphatic: No cervical lymphadenopathy. Chest: CTA no DTP. Heart RRR, no extra sound or murmur. Abd: Soft, no tenderness, no rebound and no rigidity. Increase abd girth therefore clinically I could not exclude the possibility of intra abd mass or organomegaly. LE: Right foot is wrapped to be inspected by podiatry and ID. Neuro: A A O. Nl speech, comprehension and attention. Nl and symetrical motor and tone examination through out. []] Objective Lab Results 08/30/23 05:47 08/30/23 05:47 Microbiology Results Microbiology 08/28/23 17:09 Foot,Right - Drainage Aerobic Culture - Final Methicillin Resis Staph Aureus Pseudomonas aeruginosa 08/28/23 17:09 Foot,Right - Drainage Anaerobic Culture - Preliminary No Anaerobes Isolated 2 Days 08/28/23 17:09 Foot,Right - Drainage Gram Stain - Final 08/28/23 17:08 Bone - Biopsy Aerobic Culture - Final Methicillin Resis Staph Aureus 08/28/23 17:08 Bone - Biopsy Anaerobic Culture - Preliminary No Anaerobes Isolated 2 Days 08/28/23 17:08 Bone - Biopsy Gram Stain - Final 08/28/23 17:08 Bone - Biopsy Aerobic Culture - Final Methicillin Resis Staph Aureus 08/28/23 17:08 Bone - Biopsy Anaerobic Culture - Preliminary No Anaerobes Isolated 2 Days 08/28/23 17:08 Bone - Biopsy Gram Stain - Final 08/26/23 18:45 Foot,Right - Ulcer Superficial Wound Culture - Final Methicillin Resis Staph Aureus Pseudomonas aeruginosa Proteus mirabilis 08/25/23 15:58 Blood - Left Hand Blood Culture - Preliminary No Growth 4 Days 08/25/23 16:07 Blood - Left Hand Blood Culture - Preliminary No Growth 4 Days Meds Allergies and Active Meds Allergies ticagrelor [From Brilinta] Allergy (Unknown, Verified 06/21/23 18:26) Headache chlorhexidine Allergy (Verified 06/21/23 18:26) Unknown Reaction coban Allergy (Uncoded 05/09/23 13:07) Unknown Reaction Active Meds: Active Medications Generic Name Dose Route Start Last Admin Trade Name Freq PRN Reason Stop Dose Admin Acetaminophen 650 mg 08/25/23 15:26 08/26/23 14:59 Acetaminophen 325 Mg Tablet PO 08/24/24 15:25 650 mg Q6HR PRN Administration Pain Scale 1 - 3 or fever Apixaban 10 mg 08/28/23 21:00 08/30/23 08:15 Apixaban 5 Mg Tablet PO 09/04/23 09:01 10 mg BID GEENA Administration Apixaban 5 mg 09/04/23 21:00 Apixaban 5 Mg Tablet PO 09/03/24 20:59 BID GEENA Atorvastatin Calcium 40 mg 08/25/23 21:00 08/29/23 22:01 Atorvastatin 40 Mg Tablet PO 08/24/24 20:59 40 mg QPM GEENA Administration Darbepoetin Thomas 60 mcg 08/28/23 10:00 08/28/23 09:50 Darbepoetin Thomas In Polysorbat 60 Mcg/Ml Vial IV-PUSH 08/27/24 09:59 60 mcg We@1000 GEENA Administration Protocol Dextrose 0 gm 08/25/23 15:29 Dextrose 50% In Water 25 Gm/50 Ml Syringe IV-PUSH 08/24/24 15:28 PRN PRN Hypoglycemia Glucose 0 gm 08/25/23 15:29 Dextrose 40% Gel 15 Gm Tube PO 08/24/24 15:28 PRN PRN Hypoglycemia Heparin Sodium (Porcine) 3,000 unit 08/26/23 09:08 08/28/23 09:51 Heparin 10,000 Unit/10 Ml Vial IV 08/25/24 09:07 3,000 unit PRN PRN Administration Dialysis Heparin Sodium (Porcine) 2,000 unit 08/26/23 09:08 08/28/23 09:51 Heparin 10,000 Unit/10 Ml Vial IV 08/25/24 09:07 2,000 unit PRN PRN Administration Dialysis Piperacillin Sod/Tazobactam Sod 4.5 gm in 100 mls @ 25 mls/hr 08/26/23 00:30 08/30/23 00:13 Zosyn IV 25 mls/hr Q12H GEENA Administration Sodium Chloride 1,000 mls @ 0 mls/hr 08/26/23 09:08 08/28/23 09:52 0.9% Sodium Chloride 1,000 Ml MISCELLANE 08/25/24 09:07 Infused .Q0M PRN Infusion Dialysis As Directed Insulin Aspart 0 units 08/25/23 17:00 08/30/23 08:15 Insulin Aspart 300 Units/3 Ml Insuln.Pen SUBCUT 08/24/24 16:59 4 units TID.WM.HS GEENA Administration Protocol Insulin Glargine 45 units 08/29/23 22:00 08/29/23 22:03 Insulin Glargine 300 Units/3 Ml Insuln.Pen SUBCUT 08/28/24 21:59 45 units QHS GEENA Administration Levothyroxine Sodium 100 mcg 08/27/23 06:30 08/30/23 06:11 Levothyroxine 100 Mcg Tablet PO 08/26/24 06:29 100 mcg DAILY.0630 GEENA Administration Liothyronine Sodium 5 mcg 08/26/23 09:00 08/30/23 08:15 Liothyronine 5 Mcg Tablet PO 08/25/24 08:59 5 mcg QAM GEENA Administration Metoprolol Tartrate 25 mg 08/26/23 18:00 Metoprolol Tartrate 25 Mg Tablet PO 08/25/24 17:59 BID GEENA Midodrine 5 mg 08/26/23 09:08 08/26/23 14:59 Midodrine 5 Mg Tablet PO 08/25/24 09:07 5 mg DAILY PRN Administration Hypotension Morphine Sulfate 2 mg 08/25/23 15:26 08/27/23 11:31 Morphine Sulfate 2 Mg/Ml Vial IV-PUSH 2 mg Q4H PRN Administration Pain Scale 8 - 10 Paricalcitol 7 mcg 08/26/23 10:00 08/28/23 09:51 Paricalcitol 10 Mcg/2 Ml Vial IV-PUSH 08/25/24 09:59 7 mcg MoWeFr@1000 GEENA Administration Prochlorperazine Edisylate 5 mg 08/25/23 15:26 Prochlorperazine Edisylate 10 Mg/2 Ml Vial IV-PUSH 08/24/24 15:25 Q4H PRN Nausea And Vomiting Sodium Chloride 0 ml 08/26/23 09:08 08/28/23 09:51 Sodium Chloride 0.9 % 10 Ml Syringe IV-PUSH 08/25/24 09:07 10 ml PRN PRN Administration Flush Vancomycin HCl 1 each 08/25/23 15:32 Vancomycin - Pharmacy Dosing 1 Each Miscell IV ONCE PRN ZZ.Pharmacy Consult Protocol A&P - Hospitalist Assessment/Plan (1) Severe sepsis: (2) Cellulitis: (3) Diabetes mellitus: (4) ESRD (end stage renal disease): (5) PVD (peripheral vascular disease): (6) Ventricular bigeminy: (7) Septic shock: (8) Anemia: Plan Infected foot ulcer Osteomyelitis seen on MRI Status post foot surgery, debridement and bone culture Cx is + for MRSA and Pseudomonas Continue antibiotic as guided by infectious disease Hemodialysis, fluid, electrolytes and acid-base balance by nephrology team. Arterial studies showed mild peripheral vascular disease. Consideration to initiate aspirin and statin post operatively. Patient is already on Eliquis forDVT. DVT in the right femoral vein. Converted from Lovenox to Eliquis postoperatively. Bigeminy. Patient was started on beta-joi. Blood pressure is stable. Recent echocardiogram showed normal ejection fraction. Continue to monitor. Severe sepsis, septic shock and hypotension resolved after IV fluid infusion wasgiven yesterday. Continue IV antibiotic. Lactic is normal. Resolved. Diabetes, poor control. Increase sliding scale to level 4. Increase Lantus to 45 units at bedtime. Anemia. Likely anemia of chronic disease. Patient may have other possible etiologies. He would need to have anemia workup that could be done and completed in the outpatient setting. Patient may need to have EGD, colonoscopy, age-appropriate cancer screening. These are to be arranged by PCP. Documented By: Denice Dahl MD 08/30/23 102 Signed By: <Electronically signed by Denice Dahl MD> 08/30/[address] [place] [address] Ctr Work Phone: 1(857) 812-927107-18-2024 Progress note Author DAVID [facility] August 29, 2023 12:38pm Note Date/Time August 29, 2023 12:[address] [facility] [address] [place] [address] Podiatry Progress Note Signed Patient: Seth Murphy MR#: [id number] : 1955 Acct:[id number] Age/Sex: 67 / M Adm Date: 4 Loc: 4N Room: 0I2874-1 Type: ADM IN Attending Dr: Denice Dahl MD Copies to: ~ Subjective Subjective Date of Service: Date of Service: 08/29/2023 Time of Service: 12:33 Narrative: Mr. Murphy is a 67 year old male who was seen this time for follow-up regarding infected diabetic ulceration medial right foot around the first metatarsophalangeal joint. This is postop visit #1 status post bone biopsy right first metatarsal, right hallux and ulceration debridement right foot medial first metatarsophalangeal joint diabetic ulceration. Patient has no new podiatric concerns since last examination. Overall patient doing well. Patientdid admit to good appetite and did eat his breakfast this morning he is startingto eat his lunch at this time please note. Patient denies fevers, chills, nausea, vomiting, sweats, diarrhea, chest pain orcalf pain he denies injuries or trauma to right foot. Wound care right foot: Medihoney applied topically Exam Physical Exam Vital Signs: Temp Pulse Resp BP Pulse Ox O2 Del Method 98.2 F 98 12 145/70 H 95 Room Air 08/29/23 12:08/29/23 12:08/29/23 11:29 08/29/23 12:08/29/23 12:08/29/23 12:09 Narrative: Patient is awake alert and orient x 3 and patient is starting his lunch. He is in no distress. Dressing is intact right lower extremity easily removed for examination. Vascular: Decreased pedal pulses right foot. Please see recent noninvasive vascular studies performed earlier today patient does have peripheral arterial disease history. He also has deep vein thrombosis right leg. Please see resultalso performed earlier today. Neurological: Neuropathy present right lower extremity including motor, autonomic, sensory types. There is no pain. Also skeletal strength shows significant weakness to the intact toes right foot. He was not taken out of bed for muscle weightbearing examination, or gait evaluation as ulceration was exposed per my consult. Orthopedic examination: Shows no sign of exposed bone first metatarsophalangeal joint ulceration that was very deep and could easily have exposure to the joint capsule though I did visibly did not see it at this time. There is no signs of swelling or erythema to also suggest low grade osteomyelitis this definitely hasto be a concern due to patient's chronicity of this ulceration being open as well as as comorbidities of poor diabetic control, neuropathy, peripheral arterial disease. Dermatology: Ulceration medial right foot first metatarsophalangeal joint diabetic chronic ulceration which looks better after last night surgery. There is no sign of infection the patient's foot clinically there is no sign of cellulitis, erythema, edema, calor, pain or malodor or necrosis. The skin incisions where the bone biopsy was obtained medial right foot first metatarsal and right hallux look excellent with nylon suture intact. Medial right foot diabetic ulceration first MPJ location measurement appears to be 1.0 cm x 1.0 cmtime 0.2 cm in depth. No pain to palpation or examination. Culture: 08-28-2023 cultures interoperatively right foot including bone biopsy right foot first metatarsal, right hallux and deep swab culture of drainage fromright foot first metatarsophalangeal joint diabetic ulceration are pending. X-rays 08-25-23: Right foot shows multiple calcifications throughout the entire foot especially in the intermetatarsal region there is mild swelling around the first metatarsophalangeal joint where ulceration is located. Osteopenia is diffuse. The medial aspect the first metatarsal it is somewhat hard to appreciate the cortex and 2 views therefore I would have to suspect there may beunderlying low-grade osteomyelitis MRI definitely is warranted at this time for further evaluation. Joint space narrowing also noted first MPJ due to osteoarthritis. MRI right foot 08-27-2023: Concern for underlying osteomyelitis first metatarsal and proximal phalanx right hallux. No fluid collection noted. I we have reviewed the films I agree with the reading. Assessment/Plan (1) Diabetic ulcer of right foot associated with diabetes mellitus due to underlying condition, with fat layer exposed: Plan: 1. Patient was seen today for postop visit #1 status post ulcer debridement right foot medial first metatarsophalangeal joint, as well as bone biopsy right foot first metatarsal and right hallux and antibiotic lavage at each of those locations. Patient doing very well overall he is happy at this time with the status and outcome he does admit to good appetite he has no new concerns. 2. Physical examination was performed as well as chart which was reviewed at length. 3. Patient's foot was examined at this time there is no changes overall no signof cellulitis though definitely concern for underlying osteomyelitis and chroniculceration medial right foot first MPJ region is a major concern. Please note bone biopsy cultures of first metatarsal hallux are pending. Once finalized results we can direct appropriate outpatient antibiotic therapy as well as possibility of length of time if there is osteomyelitis. However clinically patient looks very good at this point right foot. 4. Patient was advised that we will be switching call coverage tomorrow morningto Dr. Felisa Win. Patient voiced understanding and acceptance. 5. Rx: Wound care: Vashe she should be applied to a gauze to wipe weight ulceration medial right foot all nonviable tissue, drainage or debris or bleeding, apply a new Vashe soaked gauze to the ulceration apply for 5 minutes, then remove, wash foot, apply Eucerin skin cream to not open areas of skin, applied nystatin antifungal powder between toes, apply Medihoney to the ulceration medial right foot and applied dry sterile dressing daily. 6. Offload bilateral feet and heels at all time. 7. Patient will switch call coverage tomorrow to Dr. Felisa Win and Mame millan her of patient's status. Code(s): E08.621 - Diabetes mellitus due to underlying condition with foot ulcer; L97.512- Non-pressure chronic ulcer of other part of right foot with fat layer exposed (2) Type 2 diabetes mellitus with diabetic chronic kidney disease: Plan: This is being treated by medical physician. Code(s): E11.22 - Type 2 diabetes mellitus with diabetic chronic kidney disease (3) ESRD (end stage renal disease): Plan: This is being treated by medical physician. Code(s): N18.6 - End stage renal disease (4) Diabetes mellitus with diabetic neuropathy: Plan: This is being treated by medical physician. Code(s): E11.40 - Type 2 diabetes mellitus with diabetic neuropathy, unspecified (5) Peripheral arterial disease: Plan: Vascular consult has already been performed earlier today as well as DVT was positive on venous duplex-please to review patient's chart. Code(s): I73.9 - Peripheral vascular disease, unspecified (6) Deep vein thrombosis of right lower extremity: Plan: Vascular consult has already been performed. Please see reports in patient's chart. Code(s): I82.401 - Acute embolism and thrombosis of unspecified deep veins of right lowerextremity Plan Positive DVT was identified on venous duplex earlier today-please see vascular consultation/medical management for treatment. Time Spent with Patient Time Spent With Patient (min): 20 Documented By: Romeo Pop,ISAIAH, , DAVID 08/11 10/04 1233 Signed By: <Electronically signed by ISAIAH Pop> 08/29/[address] [facility] Work Phone: 1(476) 412-507507-18-2024 Progress note Author Marina Agudelo [facility] August 29, 2023 11:36am Note Date/Time August 29, 2023 11:[address] [facility] [address] [place] [address] Nephrology Progress Note Signed Patient: Seth Murphy MR#: [id number] : 1955 Acct:[id number] Age/Sex: 67 / M Adm Date: 4 Loc: 4N Room: [address] [place] [address] Type: ADM IN Attending Dr: Denice Dahl MD Copies to: ~ Date of Service: 08/29/2023 Subjective Subjective Narrative: Mr. Murphy is a 67-year-old male with medical history significant for ESRD, DM, HTN, CAD, Peripheral vascular disease with amputation of left big toe. He presented to the [facility] due to suspected infection on his right foot. He is having increased pain and swelling over this past several days. On presentation to the ED he had fever, chills and confusion. He had no leukocytosis but was febrile, tachycardic, normotensive. Sodium 128, glucose 500, lactic acid 2.2. While at [place] he was started on IV vancomycin and Rocephin. He was transferred here for dialysis and continued sepsis management. Upon arrival to [facility] he was noted to have a fever of 102, tachycardia, blood pressure 150s over 50s. He appeared septic. 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 Patient receives dialysis on MWF schedule at [place] [facility] [place] Nephrology was consulted for ESRD management and dialysis. Interval history: Patient had full hemodialysis yesterday with no events. He is being seen and examined in his room. He is up in the chair. No complaints. Right foot in dressing. No more fever over the last 24 hours. Patient currently on vancomycin and Zosyn. Wound culture showed penicillin resistant Staph aureus and Pseudomonas aeruginosa. Blood cultures are negative x 3 days. Venous duplex demonstrated DVT in the right lower extremity Exam Physical Exam Vital Signs: Temp Pulse Resp BP Pulse Ox O2 Del Method 36.7 C 55 L 18 135/56 L 95 Room Air 08/29/23 08:14 08/29/23 08:14 08/29/23 08:14 08/29/23 08:14 08/29/23 08:14 08/29/23 08:15 Narrative: General: Lying in bed. Ill-appearing. HEENT: No jaundice, pallor. Moist mucous membranes Cardiovascular: Regular rate and rhythm, no murmurs. No JVD Respiratory: Good bilateral air entry. No wheezing Abdominal: Nondistended, nontender Extremities: No edema. Amputation of left great toe. Bandaging over right footto cover suspected infected wound Right forearm fistula with palpable thrill Neurological: Awake, alert, oriented x 3 Psych: Normal mood and affect. Cooperative Vascular access: Right forearm AV fistula. He has small scab with surrounding erythema at the proximal end. Objective Intake and Output I&O: Intake & Output 08/26/23 08/27/23 08/28/23 08/29/23 23:59 23:59 23:59 23:59 Intake Total 2900 / 2900 620 / 620 1340 / 1340 200 / 200 Output Total 724 / 724 0 / 0 500 / 500 0 / 0 Balance 2176 / 2176 620 / 620 840 / 840 200 / 200 Weight 89.9 kg 91.5 kg 94.7 kg 98.8 kg Meds and Allergies Meds: Active Medications Acetaminophen (Acetaminophen 325 Mg Tablet) 650 mg PO Q6HR PRN PRN Reason: Pain Scale 1 - 3 or fever Stop: 08/24/24 15:25 Last Admin: 08/26/23 14:59 Dose: 650 mg Apixaban (Apixaban 5 Mg Tablet) 10 mg PO BID [facility] Stop: 09/04/23 09:01 Last Admin: 08/29/23 08:09 Dose: 10 mg Apixaban (Apixaban 5 Mg Tablet) 5 mg PO BID [facility] Stop: 09/03/24 20:59 Atorvastatin Calcium (Atorvastatin 40 Mg Tablet) 40 mg PO QPM [facility] Stop: 08/24/24 20:59 Last Admin: 08/28/23 21:04 Dose: 40 mg Darbepoetin Thomas (Darbepoetin Thomas In Polysorbat 60 Mcg/Ml Vial) 60 mcg IV-PUSHWe@1000 GEENA; Protocol Stop: 08/27/24 09:59 Last Admin: 08/28/23 09:50 Dose: 60 mcg Dextrose (Dextrose 50% In Water 25 Gm/50 Ml Syringe) 0 gm IV-PUSH PRN PRN PRN Reason: Hypoglycemia Stop: 08/24/24 15:28 Glucose (Dextrose 40% Gel 15 Gm Tube) 0 gm PO PRN PRN PRN Reason: Hypoglycemia Stop: 08/24/24 15:28 Heparin Sodium (Porcine) (Heparin 10,000 Unit/10 Ml Vial) 3,000 unit IV PRN PRN PRN Reason: Dialysis Stop: 08/25/24 09:07 Last Admin: 08/28/23 09:51 Dose: 3,000 unit Heparin Sodium (Porcine) (Heparin 10,000 Unit/10 Ml Vial) 2,000 unit IV PRN PRN PRN Reason: Dialysis Stop: 08/25/24 09:07 Last Admin: 08/28/23 09:51 Dose: 2,000 unit Piperacillin Sod/Tazobactam Sod (Zosyn) 4.5 gm in 100 mls @ 25 mls/hr IV Q12H [facility] Last Admin: 08/28/23 23:42 Dose: 25 mls/hr Sodium Chloride (0.9% Sodium Chloride 1,000 Ml) 1,000 mls @ 0 mls/hr MISCELLANE.Q0M PRN PRN Reason: Dialysis Stop: 08/25/24 09:07 Last Infusion: 08/28/23 09:52 Dose: Infused Insulin Aspart (Insulin Aspart 300 Units/3 Ml Insuln.Pen) 0 units SUBCUT TID.WM.HS [facility]; Protocol Stop: 08/24/24 16:59 Last Admin: 08/29/23 08:09 Dose: 7 units Insulin Glargine (Insulin Glargine 300 Units/3 Ml Insuln.Pen) 45 units SUBCUT QHS [facility] Stop: 08/28/24 21:59 Levothyroxine Sodium (Levothyroxine 100 Mcg Tablet) 100 mcg PO DAILY.0630 [facility] Stop: 08/26/24 06:29 Last Admin: 08/29/23 07:44 Dose: Not Given Liothyronine Sodium (Liothyronine 5 Mcg Tablet) 5 mcg PO QAM [facility] Stop: 08/25/24 08:59 Last Admin: 08/29/23 08:09 Dose: 5 mcg Metoprolol Tartrate (Metoprolol Tartrate 25 Mg Tablet) 25 mg PO BID [facility] Stop: 08/25/24 17:59 Midodrine (Midodrine 5 Mg Tablet) 5 mg PO DAILY PRN PRN Reason: Hypotension Stop: 08/25/24 09:07 Last Admin: 08/26/23 14:59 Dose: 5 mg Morphine Sulfate (Morphine Sulfate 2 Mg/Ml Vial) 2 mg IV-PUSH Q4H PRN PRN Reason: Pain Scale 8 - 10 Last Admin: 08/27/23 11:31 Dose: 2 mg Paricalcitol (Paricalcitol 10 Mcg/2 Ml Vial) 7 mcg IV-PUSH MoWeFr@1000 GEENA Stop: 08/25/24 09:59 Last Admin: 08/28/23 09:51 Dose: 7 mcg Prochlorperazine Edisylate (Prochlorperazine Edisylate 10 Mg/2 Ml Vial) 5 mg IV- PUSH Q4H PRN PRN Reason: Nausea And Vomiting Stop: 08/24/24 15:25 Sodium Chloride (Sodium Chloride 0.9 % 10 Ml Syringe) 0 ml IV-PUSH PRN PRN PRN Reason: Flush Stop: 08/25/24 09:07 Last Admin: 08/28/23 09:51 Dose: 10 ml Vancomycin HCl (Vancomycin - Pharmacy Dosing 1 Each Miscell) 1 each IV ONCE PRN; Protocol PRN Reason: ZZ.Pharmacy Consult Allergies ticagrelor [From Brilinta] Allergy (Unknown, Verified 06/21/23 18:26) Headache chlorhexidine Allergy (Verified 06/21/23 18:26) Unknown Reaction coban Allergy (Uncoded 05/09/23 13:07) Unknown Reaction Results - Nephrology Labs 08/29/23 05:27 08/29/23 05:27 Labs: 08/29/23 05:27 BUN 16 Creatinine 4.98 H D Albumin 2.6 L Radiology Impressions Impressions - last 24 hours: Impressions Foot X-Ray 08/28/23 18:09 IMPRESSION: Intraoperative views demonstrate biopsy of the distal aspect of the first metatarsal and the proximal aspect of the proximal phalanx of the great toe. Impression dictated by: Reagan Burger M.D.08/29/2023 8:19 AM Dictation Location: [place] [address] Any impression(s) listed above is documentation that was entered by the reading physician into a diagnostic report(s) for Seth Murphy. I have reviewed the report(s) and am incorporating any findings in the treatment plan of this patient where applicable. A&P - Nephrology Assessment/Plan (1) ESRD (end stage renal disease): Plan: Patient has ESRD related to diabetic nephropathy and hypertensive nephrosclerosis. He received hemodialysis in the dialysis unit on MWF schedule at [facility] (2) Severe sepsis: Plan: Patient has suspected sepsis due to infection of ulcer on his right foot. He isfebrile with elevated CRP. Patient was started empirically on vancomycin and Zosyn. ID and podiatry follows (3) Type 2 diabetes mellitus with diabetic chronic kidney disease: Plan: Patient has longstanding history of DM2 on insulin with multiple diabetic complications. He continues to have elevated hemoglobin A1c with poorly controlled diabetes (4) Anemia of renal disease: Plan: Hemoglobin at target 9 to 11 g/dL on erythropoietin IV with dialysis (5) Benign hypertension with end-stage renal disease: Plan: Blood pressure controlled with ultrafiltration. He takes midodrine for intradialytic hypotension (6) Secondary hyperparathyroidism: Plan: Patient is secondary hyperparathyroidism due to hyperphosphatemia ESRD. He currently takes calcium carbonate for hyperphosphatemia. He also receives IV Zemplar for dialysis (7) Deep vein thrombosis of right lower extremity: Plan: Patient is currently on enoxaparin 50 mcg subcu every 12 hours. Plan * Patient had full hemodialysis yesterday with no events. Potassium 4.2. No edema. Patient had lactated Ringer after surgery yesterday however it is stopped. * Continue vancomycin and Zosyn per ID recommendation. Dose will be monitored by the pharmacy. Patient had bone biopsy of the right first metatarsal and the right hallux in addition to debridement of the right foot yesterday. Bone biopsy cultures are pending. ID follows * Continue Aranesp 60 mcg weekly on Wednesdays. Hemoglobin at target. * Continue Zemplar 7 mcg 3 times a week. Phosphorus and intact PTH are being monitored as outpatient. * Blood pressure is controlled on metoprolol and ultrafiltration. Tachycardia with bigeminy has improved on metoprolol 25 mg twice a day the patient developed bradycardia and metoprolol currently on hold. Documented By: Marina Agudelo MD 08/29/23 1130 Signed By: <Electronically signed by MD Marina Agudelo> 08/29/23 1136 [facility] Work Phone: [phone] 447-788507-18-2024 Progress note Author Denice Dahl [facility] August 29, 2023 10:55am Note Date/Time August 29, 2023 10:[address] [facility] [address] [place] [address] Hospitalist Progress Note Signed Patient: Seth Murphy MR#: [id number] : 1955 Acct:[id number] Age/Sex: 67 / M Adm Date: 4 Loc: Room: [address] [place] [address] Type: ADM IN Attending Dr: Denice Dahl MD Copies to: ~ Date of Service: 08/29/2023 Subjective Subjective Narrative: Patient is doing well eating his breakfast. Is comfortable. No chest pain palpitation. No abdominal pain, nausea or vomiting Exam Physical Exam Vital Signs: Temp Pulse Resp BP Pulse Ox O2 Del Method 98.0 F 55 L 18 135/56 L 95 Room Air 08/29/23 08:14 08/29/23 08:14 08/29/23 08:14 08/29/23 08:14 08/29/23 08:14 08/29/23 08:15 Narrative: [pt is awake and alert. oriented to place, time and person HEENT: [address] conjunctiva and NL buccal mucosa Neck: Supple, no tenderness Endocrine: No Thyromegaly. Vascular: No JVD or carotid bruit. Lymphatic: No cervical lymphadenopathy. Chest: CTA no DTP. Heart RRR, no extra sound or murmur. Abd: Soft, no tenderness, no rebound and no rigidity. Increase abd girth therefore clinically I could not exclude the possibility of intra abd mass or organomegaly. LE: Right foot is wrapped to be inspected by podiatry and ID. Neuro: A A O. Nl speech, comprehension and attention. Nl and symetrical motor and tone examination through out. []] Objective Lab Results 08/29/23 05:27 08/29/23 05:27 Microbiology Results Microbiology 08/26/23 18:45 Foot,Right - Ulcer Superficial Wound Culture - Preliminary Methicillin Resis Staph Aureus Pseudomonas aeruginosa 08/25/23 15:58 Blood - Left Hand Blood Culture - Preliminary No Growth 3 Days 08/25/23 16:07 Blood - Left Hand Blood Culture - Preliminary No Growth 3 Days Meds Allergies and Active Meds Allergies ticagrelor [From Brilinta] Allergy (Unknown, Verified 06/21/23 18:26) Headache chlorhexidine Allergy (Verified 06/21/23 18:26) Unknown Reaction coban Allergy (Uncoded 05/09/23 13:07) Unknown Reaction Active Meds: Active Medications Generic Name Dose Route Start Last Admin Trade Name Freq PRN Reason Stop Dose Admin Acetaminophen 650 mg 08/25/23 15:26 08/26/23 14:59 Acetaminophen 325 Mg Tablet PO 08/24/24 15:25 650 mg Q6HR PRN Administration Pain Scale 1 - 3 or fever Apixaban 10 mg 08/28/23 21:00 08/29/23 08:09 Apixaban 5 Mg Tablet PO 09/04/23 09:01 10 mg BID GEENA Administration Apixaban 5 mg 09/04/23 21:00 Apixaban 5 Mg Tablet PO 09/03/24 20:59 BID GEENA Atorvastatin Calcium 40 mg 08/25/23 21:00 08/28/23 21:04 Atorvastatin 40 Mg Tablet PO 08/24/24 20:59 40 mg QPM GEENA Administration Darbepoetin Thomas 60 mcg 08/28/23 10:00 08/28/23 09:50 Darbepoetin Thomas In Polysorbat 60 Mcg/Ml Vial IV-PUSH 08/27/24 09:59 60 mcg We@1000 GEENA Administration Protocol Dextrose 0 gm 08/25/23 15:29 Dextrose 50% In Water 25 Gm/50 Ml Syringe IV-PUSH 08/24/24 15:28 PRN PRN Hypoglycemia Glucose 0 gm 08/25/23 15:29 Dextrose 40% Gel 15 Gm Tube PO 08/24/24 15:28 PRN PRN Hypoglycemia Heparin Sodium (Porcine) 3,000 unit 08/26/23 09:08 08/28/23 09:51 Heparin 10,000 Unit/10 Ml Vial IV 08/25/24 09:07 3,000 unit PRN PRN Administration Dialysis Heparin Sodium (Porcine) 2,000 unit 08/26/23 09:08 08/28/23 09:51 Heparin 10,000 Unit/10 Ml Vial IV 08/25/24 09:07 2,000 unit PRN PRN Administration Dialysis Piperacillin Sod/Tazobactam Sod 4.5 gm in 100 mls @ 25 mls/hr 08/26/23 00:30 08/28/23 23:42 Zosyn IV 25 mls/hr Q12H GEENA Administration Sodium Chloride 1,000 mls @ 0 mls/hr 08/26/23 09:08 08/28/23 09:52 0.9% Sodium Chloride 1,000 Ml MISCELLANE 08/25/24 09:07 Infused .Q0M PRN Infusion Dialysis As Directed Insulin Aspart 0 units 08/25/23 17:00 08/29/23 08:09 Insulin Aspart 300 Units/3 Ml Insuln.Pen SUBCUT 08/24/24 16:59 7 units TID.WM.HS GEENA Administration Protocol Insulin Glargine 45 units 08/29/23 22:00 Insulin Glargine 300 Units/3 Ml Insuln.Pen SUBCUT 08/28/24 21:59 QHS GEENA Levothyroxine Sodium 100 mcg 08/27/23 06:30 08/29/23 07:44 Levothyroxine 100 Mcg Tablet PO 08/26/24 06:29 Not Given DAILY.0630 GEENA Liothyronine Sodium 5 mcg 08/26/23 09:00 08/29/23 08:09 Liothyronine 5 Mcg Tablet PO 08/25/24 08:59 5 mcg QAM GEENA Administration Metoprolol Tartrate 25 mg 08/26/23 18:00 Metoprolol Tartrate 25 Mg Tablet PO 08/25/24 17:59 BID GEENA Midodrine 5 mg 08/26/23 09:08 08/26/23 14:59 Midodrine 5 Mg Tablet PO 08/25/24 09:07 5 mg DAILY PRN Administration Hypotension Morphine Sulfate 2 mg 08/25/23 15:26 08/27/23 11:31 Morphine Sulfate 2 Mg/Ml Vial IV-PUSH 2 mg Q4H PRN Administration Pain Scale 8 - 10 Paricalcitol 7 mcg 08/26/23 10:00 08/28/23 09:51 Paricalcitol 10 Mcg/2 Ml Vial IV-PUSH 08/25/24 09:59 7 mcg MoWeFr@1000 GEENA Administration Prochlorperazine Edisylate 5 mg 08/25/23 15:26 Prochlorperazine Edisylate 10 Mg/2 Ml Vial IV-PUSH 08/24/24 15:25 Q4H PRN Nausea And Vomiting Sodium Chloride 0 ml 08/26/23 09:08 08/28/23 09:51 Sodium Chloride 0.9 % 10 Ml Syringe IV-PUSH 08/25/24 09:07 10 ml PRN PRN Administration Flush Vancomycin HCl 1 each 08/25/23 15:32 Vancomycin - Pharmacy Dosing 1 Each Miscell IV ONCE PRN ZZ.Pharmacy Consult Protocol A&P - Hospitalist Assessment/Plan (1) Severe sepsis: (2) Cellulitis: (3) Diabetes mellitus: (4) ESRD (end stage renal disease): (5) PVD (peripheral vascular disease): (6) Ventricular bigeminy: (7) Septic shock: (8) Anemia: Plan Infected foot ulcer Osteomyelitis seen on MRI Status post foot surgery, debridement and bone culture Continue antibiotic as guided by infectious disease Hemodialysis, fluid, electrolytes and acid-base balance by nephrology team. Arterial studies showed mild peripheral vascular disease. Consideration to initiate aspirin and statin post operatively. Patient is already on Eliquis forDVT. DVT in the right femoral vein. Converted from Lovenox to Eliquis postoperatively. Bigeminy. Patient was started on beta-joi. Blood pressure is stable. Recent echocardiogram showed normal ejection fraction. Continue to monitor. Severe sepsis, septic shock and hypotension resolved after IV fluid infusion wasgiven yesterday. Continue IV antibiotic. Lactic is normal. Resolved. Diabetes, poor control. Increase sliding scale to level 4. Increase Lantus to 45 units at bedtime. Anemia. Likely anemia of chronic disease. Patient may have other possible etiologies. He would need to have anemia workup that could be done and completed in the outpatient setting. Patient may need to have EGD, colonoscopy, age-appropriate cancer screening. These are to be arranged by PCP. Documented By: Denice Dahl MD 08/29/23 1054 Signed By: <Electronically signed by Denice Dahl MD> 08/29/[address] [facility] Work Phone: [phone]) 477-216507-18-2024 Progress note Author Alfredo Acosta [facility] August 29, 2023 9:02am Note Date/Time August 29, 2023 8:[address] [facility] [address] [place] [address] Infect. Disease Progress Note Signed Patient: Seth Murphy MR#: [id number] : 1955 Acct:[id number] Age/Sex: 67 / M Adm Date: 4 Loc: 4N Room: [address] [place] [address] Type: ADM IN Attending Dr: Denice Dahl MD Copies to: ~ Date of Service: 08/29/2023 Subjective Interval history: Patient does not offer any new complaints. Overnight was afebrile. No complaints of pain. Tolerating IV antibiotics to date Exam Physical Exam Vital Signs: Temp Pulse Resp BP Pulse Ox O2 Del Method 98.0 F 55 L 18 135/56 L 95 Room Air 08/29/23 08:14 08/29/23 08:14 08/29/23 08:14 08/29/23 08:14 08/29/23 08:14 08/29/23 08:15 Const General: cooperative, comfortable and no acute distress Orientation: oriented x3 HEENT Head: normal to inspection Neck Neck: normal visual inspection Chest Chest palpation & inspection: normal inspection of the chest Resp Auscultation: clear to auscultation bilaterally Cardio Rate: regular rate Rhythm: regular rhythm GI Inspection: normal to inspection Palpation: soft and nontender Auscultation: normal bowel sounds Skin Wounds: wounds noted (Right foot wrapped in surgical dressing) Neuro General: patient oriented x3 Extrem General: abnormal to inspection (see above) Objective Labs CBC/BMP: CBC, BMP 08/29/23 05:27 Corrected WBC 4.9 Uncorrected WBC Count 4.9 RBC 3.13 L Hgb 8.8 L Hct 27.3 L Plt Count 234 Sodium 130 L Potassium 4.7 Chloride 95 L Carbon Dioxide 28.8 Anion Gap 10.9 BUN 16 Creatinine 4.98 H D Calcium 8.7 Labs: 08/29/23 05:27 BUN 16 Creatinine 4.98 H D Microbiology Microbiology: Microbiology - Results from entire visit 08/25/23 15:58 Blood - Left Hand Blood Culture - Preliminary No Growth 3 Days 08/25/23 16:07 Blood - Left Hand Blood Culture - Preliminary No Growth 3 Days 08/26/23 18:45 Foot,Right - Ulcer Superficial Wound Culture - Preliminary Staphylococcus aureus Pseudomonas aeruginosa Allergies and Medications Allergies and Active Meds Allergies ticagrelor [From Brilinta] Allergy (Unknown, Verified 06/21/23 18:26) Headache chlorhexidine Allergy (Verified 06/21/23 18:26) Unknown Reaction coban Allergy (Uncoded 05/09/23 13:07) Unknown Reaction Active Medications Acetaminophen (Acetaminophen 325 Mg Tablet) 650 mg PO Q6HR PRN PRN Reason: Pain Scale 1 - 3 or fever Stop: 08/24/24 15:25 Last Admin: 08/26/23 14:59 Dose: 650 mg Apixaban (Apixaban 5 Mg Tablet) 10 mg PO BID GEENA Stop: 09/04/23 09:01 Last Admin: 08/29/23 08:09 Dose: 10 mg Apixaban (Apixaban 5 Mg Tablet) 5 mg PO BID GEENA Stop: 09/03/24 20:59 Atorvastatin Calcium (Atorvastatin 40 Mg Tablet) 40 mg PO QPM [facility]EE[facility] Stop: 08/24/24 20:59 Last Admin: 08/28/23 21:04 Dose: 40 mg Darbepoetin Thomas (Darbepoetin Thomas In Polysorbat 60 Mcg/Ml Vial) 60 mcg IV-PUSHWe@1000 GEENA; Protocol Stop: 08/27/24 09:59 Last Admin: 08/28/23 09:50 Dose: 60 mcg Dextrose (Dextrose 50% In Water 25 Gm/50 Ml Syringe) 0 gm IV-PUSH PRN PRN PRN Reason: Hypoglycemia Stop: 08/24/24 15:28 Glucose (Dextrose 40% Gel 15 Gm Tube) 0 gm PO PRN PRN PRN Reason: Hypoglycemia Stop: 08/24/24 15:28 Heparin Sodium (Porcine) (Heparin 10,000 Unit/10 Ml Vial) 3,000 unit IV PRN PRN PRN Reason: Dialysis Stop: 08/25/24 09:07 Last Admin: 08/28/23 09:51 Dose: 3,000 unit Heparin Sodium (Porcine) (Heparin 10,000 Unit/10 Ml Vial) 2,000 unit IV PRN PRN PRN Reason: Dialysis Stop: 08/25/24 09:07 Last Admin: 08/28/23 09:51 Dose: 2,000 unit Piperacillin Sod/Tazobactam Sod (Zosyn) 4.5 gm in 100 mls @ 25 mls/hr IV Q12H GEENA Last Admin: 08/28/23 23:42 Dose: 25 mls/hr Sodium Chloride (0.9% Sodium Chloride 1,000 Ml) 1,000 mls @ 0 mls/hr MISCELLANE.Q0M PRN PRN Reason: Dialysis Stop: 08/25/24 09:07 Last Infusion: 08/28/23 09:52 Dose: Infused Lactated Ringer's (Lactated Ringers) 1,000 mls @ 75 mls/hr IV .[id number] [facility] Stop: 08/29/23 10:19 Last Admin: 08/28/23 23:42 Dose: 75 mls/hr Insulin Aspart (Insulin Aspart 300 Units/3 Ml Insuln.Pen) 0 units SUBCUT TID.WM.HS [facility]; Protocol Stop: 08/24/24 16:59 Last Admin: 08/29/23 08:09 Dose: 7 units Insulin Glargine (Insulin Glargine 300 Units/3 Ml Insuln.Pen) 40 units SUBCUT QHS [facility] Stop: 08/24/24 21:59 Last Admin: 08/28/23 21:43 Dose: 40 units Levothyroxine Sodium (Levothyroxine 100 Mcg Tablet) 100 mcg PO DAILY.0630 [facility] Stop: 08/26/24 06:29 Last Admin: 08/29/23 07:44 Dose: Not Given Liothyronine Sodium (Liothyronine 5 Mcg Tablet) 5 mcg PO QAM [facility] Stop: 08/25/24 08:59 Last Admin: 08/29/23 08:09 Dose: 5 mcg Metoprolol Tartrate (Metoprolol Tartrate 25 Mg Tablet) 25 mg PO BID [facility] Stop: 08/25/24 17:59 Midodrine (Midodrine 5 Mg Tablet) 5 mg PO DAILY PRN PRN Reason: Hypotension Stop: 08/25/24 09:07 Last Admin: 08/26/23 14:59 Dose: 5 mg Morphine Sulfate (Morphine Sulfate 2 Mg/Ml Vial) 2 mg IV-PUSH Q4H PRN PRN Reason: Pain Scale 8 - 10 Last Admin: 08/27/23 11:31 Dose: 2 mg Paricalcitol (Paricalcitol 10 Mcg/2 Ml Vial) 7 mcg IV-PUSH MoWeFr@1000 [facility] Stop: 08/25/24 09:59 Last Admin: 08/28/23 09:51 Dose: 7 mcg Prochlorperazine Edisylate (Prochlorperazine Edisylate 10 Mg/2 Ml Vial) 5 mg IV- PUSH Q4H PRN PRN Reason: Nausea And Vomiting Stop: 08/24/24 15:25 Sodium Chloride (Sodium Chloride 0.9 % 10 Ml Syringe) 0 ml IV-PUSH PRN PRN PRN Reason: Flush Stop: 08/25/24 09:07 Last Admin: 08/28/23 09:51 Dose: 10 ml Vancomycin HCl (Vancomycin - Pharmacy Dosing 1 Each Miscell) 1 each IV ONCE PRN; Protocol PRN Reason: ZZ.Pharmacy Consult A&P - Infectious Disease Assessment/Plan (1) Ulcer of foot: (2) ESRD (end stage renal disease): Plan s/p 1. Bone biopsy obtained right foot first metatarsal. 2. Bone biopsy obtained right hallux. 3. Diabetic ulceration subcutaneous tissue excisional ulceration debridement right foot first metatarsophalangeal joint less than 20 cm?. 4. Interoperative fluoroscopy with surgeon reading right foot 5. Antibiotic power lavage to ulceration site right foot of 2 g of vancomycin via 3 L of saline via Pulsavac antibiotic prior lavage irrigation system. Cultures pending. Maintain vancomycin and Zosyn Documented By: Alfredo Acosta MD 08/29/2348 Signed By: <Electronically signed by MD Alfredo Acosta> 08/29/23 0902 [facility] Work Phone: [phone]) 179-706307-17-2024 Progress note Author Marina [facility] August 28, 2023 1:59pm Note Date/Time August 28, 2023 1:[address] [facility] [address] [place] [address] Nephrology Progress Note Signed Patient: Seth Murphy MR#: [id number] : 1955 Acct:[id number] Age/Sex: 67 / M Adm Date: 4 Loc: 4N Room: 8P4609-4 Type: ADM IN Attending Dr: Denice Dahl MD Copies to: ~ Date of Service: 08/28/2023 Subjective Subjective Narrative: Mr. Murphy is a 67-year-old male with medical history significant for ESRD, DM, HTN, CAD, Peripheral vascular disease with amputation of left big toe. He presented to the [facility] due to suspected infection on his right foot. He is having increased pain and swelling over this past several days. On presentation to the ED he had fever, chills and confusion. He had no leukocytosis but was febrile, tachycardic, normotensive. Sodium 128, glucose 500, lactic acid 2.2. While at [place] he was started on IV vancomycin and Rocephin. He was transferred here for dialysis and continued sepsis management. Upon arrival to [facility] he was noted to have a fever of 102, tachycardia, blood pressure 150s over 50s. He appeared septic. 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 Patient receives dialysis on MWF schedule at [place] [facility] [place] Nephrology was consulted for ESRD management and dialysis. Interval history: Patient was seen and examined at bedside this morning. He is lying in bed ill-appearing. He reports still feeling febrile with chills. Patient scheduled for dialysis this morning and then will have right foot ulcer debridement and bone biopsy this afternoon by Dr. Pop concerned about osteomyelitis. Patient feels comfortable. No more fever over the last 24 hours. Patient currently on vancomycin and Zosyn. Cultures remain negative. Wound culture still pending. Venous duplex demonstrated DVT in the right lower extremity Exam Physical Exam Vital Signs: Temp Pulse Resp BP Pulse Ox O2 Del Method 36.6 C 73 18 137/62 94 L Room Air 08/28/23 09:30 08/28/23 13:00 08/28/23 09:30 08/28/23 13:00 08/28/23 09:30 08/28/23 09:30 Narrative: General: Lying in bed. Ill-appearing. HEENT: No jaundice, pallor. Moist mucous membranes Cardiovascular: Regular rate and rhythm, no murmurs. No JVD Respiratory: Good bilateral air entry. No wheezing Abdominal: Nondistended, nontender Extremities: No edema. Amputation of left great toe. Bandaging over right footto cover suspected infected wound Right forearm fistula with palpable thrill Neurological: Awake, alert, oriented x 3 Psych: Normal mood and affect. Cooperative Vascular access: Right forearm AV fistula. He has small scab with surrounding erythema at the proximal end. Objective Intake and Output I&O: Intake & Output 08/25/23 08/26/23 08/27/23 08/28/23 23:59 23:59 23:59 23:59 Intake Total 2900 / 2900 620 / 620 700 / 700 Output Total 0 / 0 724 / 724 0 / 0 Balance 0 / 0 2176 / 2176 620 / 620 700 / 700 Weight 90.9 kg 89.9 kg 91.5 kg 94.7 kg Meds and Allergies Meds: Active Medications Acetaminophen (Acetaminophen 325 Mg Tablet) 650 mg PO Q6HR PRN PRN Reason: Pain Scale 1 - 3 or fever Stop: 08/24/24 15:25 Last Admin: 08/26/23 14:59 Dose: 650 mg Apixaban (Apixaban 5 Mg Tablet) 10 mg PO BID GEENA Stop: 09/04/23 09:01 Apixaban (Apixaban 5 Mg Tablet) 5 mg PO BID GEENA Stop: 09/03/24 20:59 Atorvastatin Calcium (Atorvastatin 40 Mg Tablet) 40 mg PO QPM GEENA Stop: 08/24/24 20:59 Last Admin: 08/27/23 22:44 Dose: 40 mg Darbepoetin Thomas (Darbepoetin Thomas In Polysorbat 60 Mcg/Ml Vial) 60 mcg IV-PUSHWe@1000 GEENA; Protocol Stop: 08/27/24 09:59 Last Admin: 08/28/23 09:50 Dose: 60 mcg Dextrose (Dextrose 50% In Water 25 Gm/50 Ml Syringe) 0 gm IV-PUSH PRN PRN PRN Reason: Hypoglycemia Stop: 08/24/24 15:28 Glucose (Dextrose 40% Gel 15 Gm Tube) 0 gm PO PRN PRN PRN Reason: Hypoglycemia Stop: 08/24/24 15:28 Heparin Sodium (Porcine) (Heparin 10,000 Unit/10 Ml Vial) 3,000 unit IV PRN PRN PRN Reason: Dialysis Stop: 08/25/24 09:07 Last Admin: 08/28/23 09:51 Dose: 3,000 unit Heparin Sodium (Porcine) (Heparin 10,000 Unit/10 Ml Vial) 2,000 unit IV PRN PRN PRN Reason: Dialysis Stop: 08/25/24 09:07 Last Admin: 08/28/23 09:51 Dose: 2,000 unit Piperacillin Sod/Tazobactam Sod (Zosyn) 4.5 gm in 100 mls @ 25 mls/hr IV Q12H [facility] Last Admin: 08/28/23 00:35 Dose: 25 mls/hr Sodium Chloride (0.9% Sodium Chloride 1,000 Ml) 1,000 mls @ 0 mls/hr MISCELLANE.Q0M PRN PRN Reason: Dialysis Stop: 08/25/24 09:07 Last Infusion: 08/28/23 09:52 Dose: Infused Lactated Ringer's (Lactated Ringers) 1,000 mls @ 75 mls/hr IV .[id number] [facility] Stop: 08/28/23 22:04 Vancomycin HCl (Vancomycin) 0.75 gm in 250 mls @ 250 mls/hr IV ONCE ONE Stop: 08/28/23 16:29 Insulin Aspart (Insulin Aspart 300 Units/3 Ml Insuln.Pen) 0 units SUBCUT TID.[facility]; Protocol Stop: 08/24/24 16:59 Last Admin: 08/28/23 08:50 Dose: Not Given Insulin Glargine (Insulin Glargine 300 Units/3 Ml Insuln.Pen) 40 units SUBCUT QHS [facility] Stop: 08/24/24 21:59 Last Admin: 08/27/23 22:44 Dose: 40 units Levothyroxine Sodium (Levothyroxine 100 Mcg Tablet) 100 mcg PO DAILY.629 [facility] Stop: 08/26/24 06:29 Last Admin: 08/28/23 06:55 Dose: 100 mcg Liothyronine Sodium (Liothyronine 5 Mcg Tablet) 5 mcg PO QAM [facility] Stop: 08/25/24 08:59 Last Admin: 08/27/23 10:22 Dose: 5 mcg Metoprolol Tartrate (Metoprolol Tartrate 25 Mg Tablet) 25 mg PO BID [facility] Stop: 08/25/24 17:59 Midodrine (Midodrine 5 Mg Tablet) 5 mg PO DAILY PRN PRN Reason: Hypotension Stop: 08/25/24 09:07 Last Admin: 08/26/23 14:59 Dose: 5 mg Morphine Sulfate (Morphine Sulfate 2 Mg/Ml Vial) 2 mg IV-PUSH Q4H PRN PRN Reason: Pain Scale 8 - 10 Last Admin: 08/27/23 11:31 Dose: 2 mg Paricalcitol (Paricalcitol 10 Mcg/2 Ml Vial) 7 mcg IV-PUSH MoWeFr@1000 GEENA Stop: 08/25/24 09:59 Last Admin: 08/28/23 09:51 Dose: 7 mcg Prochlorperazine Edisylate (Prochlorperazine Edisylate 10 Mg/2 Ml Vial) 5 mg IV- PUSH Q4H PRN PRN Reason: Nausea And Vomiting Stop: 08/24/24 15:25 Sodium Chloride (Sodium Chloride 0.9 % 10 Ml Syringe) 0 ml IV-PUSH PRN PRN PRN Reason: Flush Stop: 08/25/24 09:07 Last Admin: 08/28/23 09:51 Dose: 10 ml Vancomycin HCl (Vancomycin - Pharmacy Dosing 1 Each Miscell) 1 each IV ONCE PRN; Protocol PRN Reason: ZZ.Pharmacy Consult Allergies ticagrelor [From Brilinta] Allergy (Unknown, Verified 06/21/23 18:26) Headache chlorhexidine Allergy (Verified 06/21/23 18:26) Unknown Reaction coban Allergy (Uncoded 05/09/23 13:07) Unknown Reaction Results - Nephrology Labs 08/28/23 04:46 08/28/23 04:46 Labs: 08/28/23 04:46 BUN 29 H Creatinine 7.97 H D Albumin 3.0 L Radiology Impressions Impressions - last 24 hours: Impressions Foot MRI 08/27/23 13:38 Impression: Findings concerning for osteomyelitis of the first of metatarsal head and neck region. Additional region of osteomyelitis involving the base of the first proximal phalanx. Motion artifact degrades imaging. No soft tissue fluid collection. Impression dictated by: Uriah Hays M.D.08/27/2023 3:55 PM Dictation Location: [place] [address] Any impression(s) listed above is documentation that was entered by the reading physician into a diagnostic report(s) for Seth Murphy. I have reviewed the report(s) and am incorporating any findings in the treatment plan of this patient where applicable. A&P - Nephrology Assessment/Plan (1) ESRD (end stage renal disease): Plan: Patient has ESRD related to diabetic nephropathy and hypertensive nephrosclerosis. He received hemodialysis in the dialysis unit on MWF schedule [facility] (2) Severe sepsis: Plan: Patient has suspected sepsis due to infection of ulcer on his right foot. He isfebrile with elevated CRP. Patient was started empirically on vancomycin and Zosyn. ID and podiatry follows (3) Type 2 diabetes mellitus with diabetic chronic kidney disease: Plan: Patient has longstanding history of DM2 on insulin with multiple diabetic complications. He continues to have elevated hemoglobin A1c with poorly controlled diabetes (4) Anemia of renal disease: Plan: Hemoglobin at target 9 to 11 g/dL on erythropoietin IV with dialysis (5) Benign hypertension with end-stage renal disease: Plan: Blood pressure controlled with ultrafiltration. He takes midodrine for intradialytic hypotension (6) Secondary hyperparathyroidism: Plan: Patient is secondary hyperparathyroidism due to hyperphosphatemia ESRD. He currently takes calcium carbonate for hyperphosphatemia. He also receives IV Zemplar for dialysis (7) Deep vein thrombosis of right lower extremity: Plan: Patient is currently on enoxaparin 50 mcg subcu every 12 hours. Plan * Hemodialysis today for 4 hours, 3K bath. No ultrafiltration as blood pressure is low. Patient was given 1 L IV fluid on the floor yesterday. * Continue vancomycin and Zosyn per ID recommendation. Dose will be adjusted by the pharmacy. * Continue Aranesp 60 mcg weekly on Wednesdays. Hemoglobin at target. * Continue Zemplar 7 mcg 3 times a week. Phosphorus and intact PTH are being monitored as outpatient. * Blood pressure is controlled on metoprolol and ultrafiltration. Tachycardia with bigeminy has improved on metoprolol 25 mg twice a day. Documented By: Marina Agudelo MD 08/28/23 7543 Signed By: <Electronically signed by MD Marina Agudelo> 08/28/23 3472 [facility] Work Phone: [phone] Progress note Author Alfredo Acosta [facility] August 28, 2023 9:22am Note Date/Time August 28, 2023 9:[address] [facility] [address] [place] [address] Infect. Disease Progress Note Signed Patient: Seth Murphy MR#: [id number] : 1955 Acct:[id number] Age/Sex: 67 / M Adm Date: 4 Loc: 4N Room: 8P5510-0 Type: ADM IN Attending Dr: Denice Dahl MD Copies to: ~ Date of Service: 08/28/2023 Subjective Interval history: Patient currently eating breakfast and is scheduled for dialysis this morning and then a bone biopsy later tonight by Dr. Pop. Denies any new physical complaints. Exam Physical Exam Vital Signs: Temp Pulse Resp BP Pulse Ox O2 Del Method 98.3 F 64 19 119/66 95 Room Air 08/28/23 08:10 08/28/23 08:10 08/28/23 08:10 08/28/23 08:10 08/28/23 08:10 08/28/23 08:10 Const General: cooperative, comfortable and no acute distress Orientation: oriented x3 HEENT Head: normal to inspection Neck Neck: normal visual inspection Chest Chest palpation & inspection: normal inspection of the chest Resp Auscultation: clear to auscultation bilaterally Cardio Rate: regular rate Rhythm: regular rhythm GI Inspection: normal to inspection Palpation: soft and nontender Auscultation: normal bowel sounds Neuro General: patient oriented x3 Extrem General: abnormal to inspection (see above) Objective Labs CBC/BMP: CBC, BMP 08/27/23 08/28/23 08:58 04:46 Corrected WBC 6.1 6.1 Uncorrected WBC Count 6.1 6.1 RBC 3.19 L 3.28 L Hgb 9.1 L 9.4 L Hct 27.6 L 28.2 L Plt Count 238 246 Sodium 133 L 135 L Potassium 3.8 3.6 Chloride 96 L 97 L Carbon Dioxide 29.7 27.1 Anion Gap 11.1 14.5 BUN 23 29 H Creatinine 6.05 H D 7.97 H D Calcium 8.9 9.7 Labs: 08/27/23 08/28/23 08:58 04:46 BUN 23 29 H Creatinine 6.05 H D 7.97 H D Microbiology Microbiology: Microbiology - Results from entire visit 08/25/23 15:58 Blood - Left Hand Blood Culture - Preliminary No Growth 2 Days 08/25/23 16:07 Blood - Left Hand Blood Culture - Preliminary No Growth 2 Days Additional Results Results Comment: MRI: Impression: Findings concerning for osteomyelitis of the first of metatarsal head and neck region. Additional region of osteomyelitis involving the base of the first proximal phalanx. Motion artifact degrades imaging. No soft tissue fluid collection. Allergies and Medications Allergies and Active Meds Allergies ticagrelor [From Brilinta] Allergy (Unknown, Verified 06/21/23 18:26) Headache chlorhexidine Allergy (Verified 06/21/23 18:26) Unknown Reaction coban Allergy (Uncoded 05/09/23 13:07) Unknown Reaction Active Medications Acetaminophen (Acetaminophen 325 Mg Tablet) 650 mg PO Q6HR PRN PRN Reason: Pain Scale 1 - 3 or fever Stop: 08/24/24 15:25 Last Admin: 08/26/23 14:59 Dose: 650 mg Apixaban (Apixaban 5 Mg Tablet) 10 mg PO BID GEENA Stop: 09/04/23 09:01 Apixaban (Apixaban 5 Mg Tablet) 5 mg PO BID GEENA Stop: 09/03/24 20:59 Atorvastatin Calcium (Atorvastatin 40 Mg Tablet) 40 mg PO QPM [facility] Stop: 08/24/24 20:59 Last Admin: 08/27/23 22:44 Dose: 40 mg Darbepoetin Thomas (Darbepoetin Thomas In Polysorbat 60 Mcg/Ml Vial) 60 mcg IV-PUSHWe@1000 [facility]EE[facility]; Protocol Stop: 08/27/24 09:59 Dextrose (Dextrose 50% In Water 25 Gm/50 Ml Syringe) 0 gm IV-PUSH PRN PRN PRN Reason: Hypoglycemia Stop: 08/24/24 15:28 Glucose (Dextrose 40% Gel 15 Gm Tube) 0 gm PO PRN PRN PRN Reason: Hypoglycemia Stop: 08/24/24 15:28 Heparin Sodium (Porcine) (Heparin 10,000 Unit/10 Ml Vial) 3,000 unit IV PRN PRN PRN Reason: Dialysis Stop: 08/25/24 09:07 Last Admin: 08/26/23 15:35 Dose: 3,000 unit Heparin Sodium (Porcine) (Heparin 10,000 Unit/10 Ml Vial) 2,000 unit IV PRN PRN PRN Reason: Dialysis Stop: 08/25/24 09:07 Last Admin: 08/26/23 15:35 Dose: 2,000 unit Piperacillin Sod/Tazobactam Sod (Zosyn) 4.5 gm in 100 mls @ 25 mls/hr IV Q12H [facility] Last Admin: 08/28/23 00:35 Dose: 25 mls/hr Sodium Chloride (0.9% Sodium Chloride 1,000 Ml) 1,000 mls @ 0 mls/hr MISCELLANE.Q0M PRN PRN Reason: Dialysis Stop: 08/25/24 09:07 Last Admin: 08/26/23 15:35 Dose: 999 mls/hr Lactated Ringer's (Lactated Ringers) 1,000 mls @ 75 mls/hr IV .[id number] [facility] Stop: 08/28/23 22:04 Vancomycin HCl (Vancomycin) 0.75 gm in 250 mls @ 250 mls/hr IV ONCE ONE Stop: 08/28/23 16:29 Insulin Aspart (Insulin Aspart 300 Units/3 Ml Insuln.Pen) 0 units SUBCUT TID.[facility]; Protocol Stop: 08/24/24 16:59 Last Admin: 08/28/23 08:50 Dose: Not Given Insulin Glargine (Insulin Glargine 300 Units/3 Ml Insuln.Pen) 40 units SUBCUT QHS [facility] Stop: 08/24/24 21:59 Last Admin: 08/27/23 22:44 Dose: 40 units Levothyroxine Sodium (Levothyroxine 100 Mcg Tablet) 100 mcg PO DAILY.0630 [facility] Stop: 08/26/24 06:29 Last Admin: 08/28/23 06:55 Dose: 100 mcg Liothyronine Sodium (Liothyronine 5 Mcg Tablet) 5 mcg PO QAM [facility] Stop: 08/25/24 08:59 Last Admin: 08/27/23 10:22 Dose: 5 mcg Metoprolol Tartrate (Metoprolol Tartrate 25 Mg Tablet) 25 mg PO BID [facility] Stop: 08/25/24 17:59 Midodrine (Midodrine 5 Mg Tablet) 5 mg PO DAILY PRN PRN Reason: Hypotension Stop: 08/25/24 09:07 Last Admin: 08/26/23 14:59 Dose: 5 mg Morphine Sulfate (Morphine Sulfate 2 Mg/Ml Vial) 2 mg IV-PUSH Q4H PRN PRN Reason: Pain Scale 8 - 10 Last Admin: 08/27/23 11:31 Dose: 2 mg Paricalcitol (Paricalcitol 10 Mcg/2 Ml Vial) 7 mcg IV-PUSH MoWeFr@1000 [facility] Stop: 08/25/24 09:59 Last Admin: 08/26/23 15:04 Dose: 7 mcg Prochlorperazine Edisylate (Prochlorperazine Edisylate 10 Mg/2 Ml Vial) 5 mg IV- PUSH Q4H PRN PRN Reason: Nausea And Vomiting Stop: 08/24/24 15:25 Sodium Chloride (Sodium Chloride 0.9 % 10 Ml Syringe) 0 ml IV-PUSH PRN PRN PRN Reason: Flush Stop: 08/25/24 09:07 Last Admin: 08/27/23 15:21 Dose: 10 ml Vancomycin HCl (Vancomycin - Pharmacy Dosing 1 Each Miscell) 1 each IV ONCE PRN; Protocol PRN Reason: ZZ.Pharmacy Consult A&P - Infectious Disease Assessment/Plan (1) Ulcer of foot: (2) ESRD (end stage renal disease): (3) Fever: Plan His fever is down trended. Patient clinically stable. For right foot ulcer debridement and bone biopsy later tonight. Continuing vancomycin and Zosyn. Superficial wound culture pending. Blood cultures remain negative at this time. Documented By: Alfredo Acosta MD 08/28/23919 Signed By: <Electronically signed by MD Alfredo Aocsta> 08/28/23921 [facility] Work Phone: [phone] 250-947307-17-2024 Progress note Author Denice Dahl [facility] August 28, 2023 8:40am Note Date/Time August 28, 2023 8:[address] [facility] [address] [place] [address] Hospitalist Progress Note Signed Patient: Seth Murphy MR#: [id number] : 1955 Acct:[id number] Age/Sex: 67 / M Adm Date: 4 Loc: 4N Room: [address] [place] [address] Type: ADM IN Attending Dr: Denice Dahl MD Copies to: ~ Date of Service: 08/28/2023 Subjective Subjective Narrative: Uneventful night. Patient is feeling well. Exam Physical Exam Vital Signs: Temp Pulse Resp BP Pulse Ox O2 Del Method 98.3 F 64 19 119/66 95 Room Air 08/28/23 08:10 08/28/23 08:10 08/28/23 08:10 08/28/23 08:10 08/28/23 08:10 08/28/23 08:10 Narrative: [pt is awake and alert. oriented to place, time and person HEENT: [address] conjunctiva and NL buccal mucosa Neck: Supple, no tenderness Endocrine: No Thyromegaly. Vascular: No JVD or carotid bruit. Lymphatic: No cervical lymphadenopathy. Chest: CTA no DTP. Heart RRR, no extra sound or murmur. Abd: Soft, no tenderness, no rebound and no rigidity. Increase abd girth therefore clinically I could not exclude the possibility of intra abd mass or organomegaly. LE: Right foot is wrapped to be inspected by podiatry and ID. Neuro: A A O. Nl speech, comprehension and attention. Nl and symetrical motor and tone examination through out. []] Objective Lab Results 08/28/23 04:46 08/28/23 04:46 Microbiology Results Microbiology 08/25/23 15:58 Blood - Left Hand Blood Culture - Preliminary No Growth 2 Days 08/25/23 16:07 Blood - Left Hand Blood Culture - Preliminary No Growth 2 Days Meds Allergies and Active Meds Allergies ticagrelor [From Brilinta] Allergy (Unknown, Verified 06/21/23 18:26) Headache chlorhexidine Allergy (Verified 06/21/23 18:26) Unknown Reaction coban Allergy (Uncoded 05/09/23 13:07) Unknown Reaction Active Meds: Active Medications Generic Name Dose Route Start Last Admin Trade Name Freq PRN Reason Stop Dose Admin Acetaminophen 650 mg 08/25/23 15:26 08/26/23 14:59 Acetaminophen 325 Mg Tablet PO 08/24/24 15:25 650 mg Q6HR PRN Administration Pain Scale 1 - 3 or fever Apixaban 10 mg 08/28/23 21:00 Apixaban 5 Mg Tablet PO 08/27/24 20:59 BID GEENA Apixaban 5 mg 09/04/23 09:00 Apixaban 5 Mg Tablet PO 09/03/24 08:59 BID GEENA Atorvastatin Calcium 40 mg 08/25/23 21:00 08/27/23 22:44 Atorvastatin 40 Mg Tablet PO 08/24/24 20:59 40 mg QPM GEENA Administration Darbepoetin Thomas 60 mcg 08/28/23 10:00 Darbepoetin Thomas In Polysorbat 60 Mcg/Ml Vial IV-PUSH 08/27/24 09:59 We@1000 GEENA Protocol Dextrose 0 gm 08/25/23 15:29 Dextrose 50% In Water 25 Gm/50 Ml Syringe IV-PUSH 08/24/24 15:28 PRN PRN Hypoglycemia Glucose 0 gm 08/25/23 15:29 Dextrose 40% Gel 15 Gm Tube PO 08/24/24 15:28 PRN PRN Hypoglycemia Heparin Sodium (Porcine) 3,000 unit 08/26/23 09:08 08/26/23 15:35 Heparin 10,000 Unit/10 Ml Vial IV 08/25/24 09:07 3,000 unit PRN PRN Administration Dialysis Heparin Sodium (Porcine) 2,000 unit 08/26/23 09:08 08/26/23 15:35 Heparin 10,000 Unit/10 Ml Vial IV 08/25/24 09:07 2,000 unit PRN PRN Administration Dialysis Piperacillin Sod/Tazobactam Sod 4.5 gm in 100 mls @ 25 mls/hr 08/26/23 00:30 08/28/23 00:35 Zosyn IV 25 mls/hr Q12H [facility]EENA Administration Sodium Chloride 1,000 mls @ 0 mls/hr 08/26/23 09:08 08/26/23 15:35 0.9% Sodium Chloride 1,000 Ml MISCELLANE 08/25/24 09:07 999 mls/hr .Q0M PRN Administration Dialysis As Directed Lactated Ringer's 1,000 mls @ 75 mls/hr 08/28/23 08:45 Lactated Ringers IV 08/28/23 22:04 .[id number] [facility] Insulin Aspart 0 units 08/25/23 17:00 08/27/23 22:45 Insulin Aspart 300 Units/3 Ml Insuln.Pen SUBCUT 08/24/24 16:59 12 units TID.WM.[facility] GEENA Administration Protocol Insulin Glargine 40 units 08/25/23 22:00 08/27/23 22:44 Insulin Glargine 300 Units/3 Ml Insuln.Pen SUBCUT 08/24/24 21:59 40 units QHS GEENA Administration Levothyroxine Sodium 100 mcg 08/27/23 06:30 08/28/23 06:55 Levothyroxine 100 Mcg Tablet PO 08/26/24 06:29 100 mcg DAILY.0630 GEENA Administration Liothyronine Sodium 5 mcg 08/26/23 09:00 08/27/23 10:22 Liothyronine 5 Mcg Tablet PO 08/25/24 08:59 5 mcg QAM GEENA Administration Metoprolol Tartrate 25 mg 08/26/23 18:00 Metoprolol Tartrate 25 Mg Tablet PO 08/25/24 17:59 BID GEENA Midodrine 5 mg 08/26/23 09:08 08/26/23 14:59 Midodrine 5 Mg Tablet PO 08/25/24 09:07 5 mg DAILY PRN Administration Hypotension Morphine Sulfate 2 mg 08/25/23 15:26 08/27/23 11:31 Morphine Sulfate 2 Mg/Ml Vial IV-PUSH 2 mg Q4H PRN Administration Pain Scale 8 - 10 Paricalcitol 7 mcg 08/26/23 10:00 08/26/23 15:04 Paricalcitol 10 Mcg/2 Ml Vial IV-PUSH 08/25/24 09:59 7 mcg MoWeFr@1000 GEENA Administration Prochlorperazine Edisylate 5 mg 08/25/23 15:26 Prochlorperazine Edisylate 10 Mg/2 Ml Vial IV-PUSH 08/24/24 15:25 Q4H PRN Nausea And Vomiting Sodium Chloride 0 ml 08/26/23 09:08 08/27/23 15:21 Sodium Chloride 0.9 % 10 Ml Syringe IV-PUSH 08/25/24 09:07 10 ml PRN PRN Administration Flush Vancomycin HCl 1 each 08/25/23 15:32 Vancomycin - Pharmacy Dosing 1 Each Miscell IV ONCE PRN ZZ.Pharmacy Consult Protocol A&P - Hospitalist Assessment/Plan (1) Severe sepsis: (2) Cellulitis: (3) Diabetes mellitus: (4) ESRD (end stage renal disease): (5) PVD (peripheral vascular disease): (6) Ventricular bigeminy: (7) Septic shock: (8) Anemia: Plan Infected foot ulcer Osteomyelitis seen on MRI Patient is going for debridement and bone biopsy Continue antibiotic as guided by infectious disease Hemodialysis, fluid, electrolytes and acid-base balance by nephrology team. Arterial studies showed mild peripheral vascular disease. Consideration to initiate aspirin and statin post operatively. DVT in the right femoral vein. Converted from Lovenox to Eliquis postoperatively. Bigeminy. Patient was started on beta-joi. Blood pressure is stable. Recent echocardiogram showed normal ejection fraction. Continue to monitor. Severe sepsis, septic shock and hypotension resolved after IV fluid infusion wasgiven yesterday. Continue IV antibiotic. Lactic is normal. Resolved Anemia. Likely anemia of chronic disease. Patient may have other possible etiologies. He would need to have anemia workup that could be done and completed in the outpatient setting. Patient may need to have EGD, colonoscopy, age-appropriate cancer screening. These are to be arranged by PCP. Documented By: Denice Dahl MD 08/28/2336 Signed By: <Electronically signed by Denice Dahl MD> 08/28/2340 [facility] Work Phone: [phone]) 980-758507-16-2024 Progress note Author CWCristo Pop [facility] August 27, 2023 8:40pm Note Date/Time August 27, 2023 8:[address] [facility] [address] [place] [address] Podiatry Progress Note Signed Patient: Seth Murphy MR#: [id number] : 1955 Acct:[id number] Age/Sex: 67 / M Adm Date: 4 Loc: Room: [address] [place] [address] Type: ADM IN Attending Dr: Denice Dahl MD Copies to: ~ Subjective Subjective Date of Service: Date of Service: 08/27/2023 Time of Service: 20:35 Narrative: Mr. Murphy is a 67 year old male who was seen this time for consultation follow- up regarding infected diabetic ulceration medial right foot around the first metatarsophalangeal joint. Patient finally had an MRI obtained this afternoon. This is the first I could reappoint to see patient for evaluation. Patient admits to no new podiatric instrument since last examination. Patient denies fevers, chills, nausea, vomiting, sweats, diarrhea, chest pain orcalf pain he denies injuries or trauma to right foot. He admits to appetite being somewhat poor. Wound care right foot: Medihoney applied topically Exam Physical Exam Vital Signs: Temp Pulse Resp BP Pulse Ox O2 Del Method 99.1 F H 83 18 101/52 L 95 Room Air 08/27/23 16:00 08/27/23 16:00 08/27/23 16:00 08/27/23 16:00 08/27/23 16:00 08/27/23 20:00 Narrative: Patient is awake alert and orient x 3 I am familiar with the patient as I have seen him in the distant past for multiple ulcerations. He did also see my partner Dr. Felisa Win for amputation partial left foot in the more recent past. Vascular: Decreased pedal pulses right foot. Please see recent noninvasive vascular studies performed earlier today patient does have peripheral arterial disease history. He also has deep vein thrombosis right leg. Please see resultalso performed earlier today. Neurological: Neuropathy present right lower extremity including motor, autonomic, sensory types. There is no pain. Also skeletal strength shows significant weakness to the intact toes right foot. He was not taken out of bed for muscle weightbearing examination, or gait evaluation as ulceration was exposed per my consult. Orthopedic examination: Shows no sign of exposed bone first metatarsophalangeal joint ulceration that was very deep and could easily have exposure to the joint capsule though I did visibly did not see it at this time. There is no signs of swelling or erythema to also suggest low grade osteomyelitis this definitely hasto be a concern due to patient's chronicity of this ulceration being open as well as as comorbidities of poor diabetic control, neuropathy, peripheral arterial disease. Dermatology: Ulceration medial right foot is a first metatarsophalangeal joint diabetic ulceration which is chronic been present for multiple months exact dateand time unknown. No erythema nor edema surprisingly there is purulence expressed when I palpate exsanguinate from plantar to dorsal approximately 0.5 cm? of purulence was expressed there is no active bleeding. Is able to wipe away the wound bed of nonviable skin and slough the ulceration does appear to godown to the subcutaneous tissue joint capsule was not visibly appreciated was very close at this level please note obviously. Ulceration measurement appears to be 1.0 cm x 1.0 cm time 0.2 cm in depth. No pain to palpation or examination. X-rays 08-25-23: Right foot shows multiple calcifications throughout the entire foot especially in the intermetatarsal region there is mild swelling around the first metatarsophalangeal joint where ulceration is located. Osteopenia is diffuse. The medial aspect the first metatarsal it is somewhat hard to appreciate the cortex and 2 views therefore I would have to suspect there may beunderlying low-grade osteomyelitis MRI definitely is warranted at this time for further evaluation. Joint space narrowing also noted first MPJ due to osteoarthritis. MRI right foot 08-27-2023: Concern for underlying osteomyelitis first metatarsal and proximal phalanx right hallux. No fluid collection noted. I we have reviewed the films I agree with the reading. Assessment/Plan (1) Diabetic ulcer of right foot associated with diabetes mellitus due to underlying condition, with fat layer exposed: Plan: 1. Patient was seen today for consultation follow-up which was performed and dictated. 2. Physical examination was performed as well as chart which was reviewed at length. 3. Patient's foot was examined at this time there is no changes overall no signof cellulitis though definitely concern for underlying osteomyelitis and chroniculceration medial right foot first MPJ region is a major concern. 4. Culture right foot is pending deep ulceration. 5. MRI was obtained today late afternoon was positive for suspicion for osteomyelitis right first metatarsal and proximal phalanx of hallux. There is no fluid collection seen. 6. Patient was advised I would recommend he go to the operating room to be debrided of nonviable tissue to the right foot medial diabetic ulceration with antibiotic power lavage and bone biopsy of first metatarsal and right hallux proximal phalanx to confirm presence of osteomyelitis as well as to direct appropriate antibiotic therapy on outpatient basis. 7. Patient was advised he is a very serious condition and he knows this is he has been a patient of mine or ours in the past he was advised no guarantees given or implied about healing, timeline of healing or limb salvage nor discharge from hospital. 8. Rx: Wound care: Vashe she should be applied to a gauze to wipe weight ulceration medial right foot all nonviable tissue, drainage or debris or bleeding, apply a new Vashe soaked gauze to the ulceration apply for 5 minutes, then remove, wash foot, apply Eucerin skin cream to not open areas of skin, applied nystatin antifungal powder between toes, apply Medihoney to the ulceration medial right foot and applied dry sterile dressing daily. 9. Offload bilateral feet and heels at all time. 10. Please note I was not consulted for the left foot: only the right. 11. Surgery scheduled for tomorrow late afternoon I am in the office all day that early second reappoint for surgery for this patient's right foot ulcer debridement and bone biopsies first metatarsal and hallux right foot with antibiotic prior lavage will be approximately 5:30 or 6 PM under local anesthetic patient has no contraindications. The informed consent will be signed and witnessed preoperatively. 12. Maintain dressing changes daily as prescribed Code(s): E08.621 - Diabetes mellitus due to underlying condition with foot ulcer; L97.512- Non-pressure chronic ulcer of other part of right foot with fat layer exposed (2) Type 2 diabetes mellitus with diabetic chronic kidney disease: Plan: This is being treated by medical physician. Code(s): E11.22 - Type 2 diabetes mellitus with diabetic chronic kidney disease (3) ESRD (end stage renal disease): Plan: This is being treated by medical physician. Code(s): N18.6 - End stage renal disease (4) Diabetes mellitus with diabetic neuropathy: Plan: This is being treated by medical physician. Code(s): E11.40 - Type 2 diabetes mellitus with diabetic neuropathy, unspecified (5) Peripheral arterial disease: Plan: Vascular consult has already been performed earlier today as well as DVT was positive on venous duplex-please to review patient's chart. Code(s): I73.9 - Peripheral vascular disease, unspecified (6) Deep vein thrombosis of right lower extremity: Plan: Vascular consult has already been performed. Please see reports in patient's chart. Code(s): I82.401 - Acute embolism and thrombosis of unspecified deep veins of right lowerextremity Plan Positive DVT was identified on venous duplex earlier today-please see vascular consultation/medical management for treatment. Time Spent with Patient Time Spent With Patient (min): 20 Documented By: Romeo Pop,ISAIAH, , DAVID 08/11 Signed By: <Electronically signed by ISAIAH Pop> 08/27/232039 [facility] Work Phone: [phone] 605-944407-16-2024 Progress note Author Marina Agudelo [facility] August 27, 2023 2:32pm Note Date/Time August 27, 2023 2:[address] [facility] [address] [place] [address] Nephrology Progress Note Signed Patient: Seth Murphy MR#: [id number] : 1955 Acct:[id number] Age/Sex: 67 / M Adm Date: 4 Loc: 4N Room: [id number] Type: ADM IN Attending Dr: Denice Dahl MD Copies to: ~ Date of Service: 08/27/2023 Subjective Subjective Narrative: Mr. Murphy is a 67-year-old male with medical history significant for ESRD, DM, HTN, CAD, Peripheral vascular disease with amputation of left big toe. He presented to the [facility] due to suspected infection on his right foot. He is having increased pain and swelling over this past several days. On presentation to the ED he had fever, chills and confusion. He had no leukocytosis but was febrile, tachycardic, normotensive. Sodium 128, glucose 500, lactic acid 2.2. While at [place] he was started on IV vancomycin and Rocephin. He was transferred here for dialysis and continued sepsis management. Upon arrival to [facility] he was noted to have a fever of 102, tachycardia, blood pressure 150s over 50s. He appeared septic. 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 Patient receives dialysis on MWF schedule at [place] [facility] [place] Nephrology was consulted for ESRD management and dialysis. Interval history: Patient was seen and examined at bedside this morning. He is lying in bed ill-appearing. He reports still feeling febrile with chills. Patient tolerated dialysis well yesterday. During dialysis monitor showed ventricular PVCs with bigeminy. Blood pressure is borderline low. Metoprolol was held. Patient was evaluated by ID for the right foot ulcer. Patient still has fever. He is currently on vancomycin and Zosyn. MRI was ordered to rule out osteomyelitis. Blood cultures negative x 1. Venous duplex demonstrated DVT in the right lower extremity Podiatry following and will consider surgical debridement once foot MRI is completed. Exam Physical Exam Vital Signs: Temp Pulse Resp BP Pulse Ox O2 Del Method 98.7 F 68 17 118/56 L 92 L Room Air 08/27/23 08:06 08/27/23 08:06 08/27/23 08:06 08/27/23 08:06 08/27/23 08:08/27/23 08:06 Narrative: General: Lying in bed. Ill-appearing. HEENT: Normocephalic, atraumatic. No jaundice, pallor. Moist mucous membranes Cardiovascular: Regular rate and rhythm, no murmurs. No JVD Respiratory: Good bilateral air entry. No wheezing Abdominal: Nondistended, nontender Extremities: No edema. Amputation of left great toe. Bandaging over right footto cover suspected infected wound Right forearm fistula with palpable thrill Musculoskeletal: No large joint swelling Neurological: Awake, alert, oriented x 3 Psych: Normal mood and affect. Cooperative Vascular access: Right forearm AV fistula. He has small scab with surrounding erythema at the proximal end. Objective Intake and Output I&O: Intake & Output 08/24/23 08/25/23 08/26/23 08/27/23 23:59 23:59 23:59 23:59 Intake Total 2400 / 2400 120 / 120 Output Total 0 / 0 724 / 724 Balance 0 / 0 1676 / 1676 120 / 120 Weight 90.9 kg 89.9 kg 91.5 kg Meds and Allergies Meds: Active Medications Acetaminophen (Acetaminophen 325 Mg Tablet) 650 mg PO Q6HR PRN PRN Reason: Pain Scale 1 - 3 or fever Stop: 08/24/24 15:25 Last Admin: 08/26/23 14:59 Dose: 650 mg Atorvastatin Calcium (Atorvastatin 40 Mg Tablet) 40 mg PO QPM [facility] Stop: 08/24/24 20:59 Last Admin: 08/26/23 22:35 Dose: 40 mg Darbepoetin Thomas (Darbepoetin Thomas In Polysorbat 60 Mcg/Ml Vial) 60 mcg IV-PUSHWe@1000 GEENA; Protocol Stop: 08/27/24 09:59 Dextrose (Dextrose 50% In Water 25 Gm/50 Ml Syringe) 0 gm IV-PUSH PRN PRN PRN Reason: Hypoglycemia Stop: 08/24/24 15:28 Enoxaparin Sodium (Enoxaparin 50 Mg/0.5 Ml From Multidose Vial) 50 mg SUBCUT Q12HR.10A.10P [facility] Stop: 08/25/24 10:29 Last Admin: 08/27/23 10:17 Dose: 50 mg Glucose (Dextrose 40% Gel 15 Gm Tube) 0 gm PO PRN PRN PRN Reason: Hypoglycemia Stop: 08/24/24 15:28 Heparin Sodium (Porcine) (Heparin 10,000 Unit/10 Ml Vial) 3,000 unit IV PRN PRN PRN Reason: Dialysis Stop: 08/25/24 09:07 Last Admin: 08/26/23 15:35 Dose: 3,000 unit Heparin Sodium (Porcine) (Heparin 10,000 Unit/10 Ml Vial) 2,000 unit IV PRN PRN PRN Reason: Dialysis Stop: 08/25/24 09:07 Last Admin: 08/26/23 15:35 Dose: 2,000 unit Piperacillin Sod/Tazobactam Sod (Zosyn) 4.5 gm in 100 mls @ 25 mls/hr IV Q12H [facility] Last Admin: 08/27/23 01:29 Dose: Not Given Sodium Chloride (0.9% Sodium Chloride 1,000 Ml) 1,000 mls @ 0 mls/hr MISCELLANE.Q0M PRN PRN Reason: Dialysis Stop: 08/25/24 09:07 Last Admin: 08/26/23 15:35 Dose: 999 mls/hr Insulin Aspart (Insulin Aspart 300 Units/3 Ml Insuln.Pen) 0 units SUBCUT TID.WM.HS [facility]; Protocol Stop: 08/24/24 16:59 Last Admin: 08/27/23 08:48 Dose: Not Given Insulin Glargine (Insulin Glargine 300 Units/3 Ml Insuln.Pen) 40 units SUBCUT QHS [facility] Stop: 08/24/24 21:59 Last Admin: 08/26/23 22:36 Dose: 40 units Levothyroxine Sodium (Levothyroxine 100 Mcg Tablet) 100 mcg PO DAILY.0630 [facility] Stop: 08/26/24 06:29 Last Admin: 08/27/23 06:56 Dose: 100 mcg Liothyronine Sodium (Liothyronine 5 Mcg Tablet) 5 mcg PO QAM [facility] Stop: 08/25/24 08:59 Last Admin: 08/27/23 10:22 Dose: 5 mcg Metoprolol Tartrate (Metoprolol Tartrate 25 Mg Tablet) 25 mg PO BID [facility] Stop: 08/25/24 17:59 Midodrine (Midodrine 5 Mg Tablet) 5 mg PO DAILY PRN PRN Reason: Hypotension Stop: 08/25/24 09:07 Last Admin: 08/26/23 14:59 Dose: 5 mg Morphine Sulfate (Morphine Sulfate 2 Mg/Ml Vial) 2 mg IV-PUSH Q4H PRN PRN Reason: Pain Scale 8 - 10 Paricalcitol (Paricalcitol 10 Mcg/2 Ml Vial) 7 mcg IV-PUSH MoWeFr@1000 GEENA Stop: 08/25/24 09:59 Last Admin: 08/26/23 15:04 Dose: 7 mcg Prochlorperazine Edisylate (Prochlorperazine Edisylate 10 Mg/2 Ml Vial) 5 mg IV- PUSH Q4H PRN PRN Reason: Nausea And Vomiting Stop: 08/24/24 15:25 Sodium Chloride (Sodium Chloride 0.9 % 10 Ml Syringe) 0 ml IV-PUSH PRN PRN PRN Reason: Flush Stop: 08/25/24 09:07 Last Admin: 08/26/23 15:35 Dose: 10 ml Vancomycin HCl (Vancomycin - Pharmacy Dosing 1 Each Miscell) 1 each IV ONCE PRN; Protocol PRN Reason: ZZ.Pharmacy Consult Allergies ticagrelor [From Brilinta] Allergy (Unknown, Verified 06/21/23 18:26) Headache chlorhexidine Allergy (Verified 06/21/23 18:26) Unknown Reaction coban Allergy (Uncoded 05/09/23 13:07) Unknown Reaction Results - Nephrology Labs 08/27/23 08:58 08/27/23 08:58 Labs: 08/27/23 08:58 BUN 23 Creatinine 6.05 H D Albumin 2.7 L Radiology Impressions Impressions - last 24 hours: Impressions PVR 08/26/23 15:32 IMPRESSION: MILD PERIPHERAL ARTERIAL DISEASE OF THE bilateral LOWER EXTREMITY AT REST. THE PATIENT IS MOST LIKELY TO HAVE diffuse DISEASE OF THE bilateral LOWER EXTREMITY.This patient has evidence of calcified disease. Therefore the ALINA is likely falsely elevated and unreliable. However, based on the waveforms the patient hasminimal PVD bilaterally. Impression dictated by: Guicho Chun MD08/26/2023 3:09 PM Dictation Location: RAD-DOC-04 Venous Duplex 08/26/23 15:32 IMPRESSION: Positive study for right leg chronic DVT. Lymph nodes identified inthe right groin. Impression dictated by: Guicho Chun MD08/26/2023 3:07 PM Dictation Location: RAD-DOC-04 Any impression(s) listed above is documentation that was entered by the reading physician into a diagnostic report(s) for Seth Murphy. I have reviewed the report(s) and am incorporating any findings in the treatment plan of this patient where applicable. A&P - Nephrology Assessment/Plan (1) ESRD (end stage renal disease): Plan: Patient has ESRD related to diabetic nephropathy and hypertensive nephrosclerosis. He received hemodialysis in the dialysis unit on MWF schedule at [facility] (2) Severe sepsis: Plan: Patient has suspected sepsis due to infection of ulcer on his right foot. He isfebrile with elevated CRP. Patient was started empirically on vancomycin and Zosyn. ID and podiatry follows (3) Type 2 diabetes mellitus with diabetic chronic kidney disease: Plan: Patient has longstanding history of DM2 on insulin with multiple diabetic complications. He continues to have elevated hemoglobin A1c with poorly controlled diabetes (4) Anemia of renal disease: Plan: Hemoglobin at target 9 to 11 g/dL on erythropoietin IV with dialysis (5) Benign hypertension with end-stage renal disease: Plan: Blood pressure controlled with ultrafiltration. He takes midodrine for intradialytic hypotension (6) Secondary hyperparathyroidism: Plan: Patient is secondary hyperparathyroidism due to hyperphosphatemia ESRD. He currently takes calcium carbonate for hyperphosphatemia. He also receives IV Zemplar for dialysis (7) Deep vein thrombosis of right lower extremity: Plan: Patient is currently on enoxaparin 50 mcg subcu every 12 hours. Plan * Hemodialysis tomorrow on his normal schedule. * Patient was started on vancomycin and Zosyn per ID recommendation. Dose will be adjusted by the pharmacy. * Patient on Aranesp 60 mcg weekly that is due for next Saturday. Hemoglobin at target. * Continue Zemplar 7 mcg 3 times a week. Intact. Check phosphorus will be monitored as outpatient. * Blood pressure is stable or even mildly elevated with tachycardia and bigeminy. Will add metoprolol 25 mg twice a day. I would recommend cardiology consultation or follow-up as outpatient to see if the patient needs any further intervention for bigeminy. I appreciate this consultation we will be happy to follow the patient with you during hospital stay This document was dictated utilizing computerized voice recognition technology. Errors in grammar, spelling, and or syntax may be noted. The creator of this document does not proofread for this. Documented By: Marina Agudelo MD 08/27/23 1120 Signed By: <Electronically signed by MD Marina Agudelo> 08/27/23 143 [facility] Work Phone: [phone] 123-596407-16-2024 Progress note Author Denice Dahl [facility] August 27, 2023 8:55am Note Date/Time August 27, 2023 8:[address] [facility] [address] [place] [address] Hospitalist Progress Note Signed Patient: Seth Murphy MR#: [id number] : 1955 Acct:[id number] Age/Sex: 67 / M Adm Date: 4 Loc: 4N Room: [address] [place] [address] Type: ADM IN Attending Dr: Denice Dahl MD Copies to: ~ Date of Service: 08/27/2023 Subjective Subjective Narrative: No new symptoms today. Patient yesterday became hypotensive requiring IV fluid infusion and stop of the fluid removal during dialysis. Patient also was havingbigeminy. PVC. No chest pain or palpitation. No other symptoms. Exam Physical Exam Vital Signs: Temp Pulse Resp BP Pulse Ox O2 Del Method 98.7 F 68 17 118/56 L 92 L Room Air 08/27/23 08:06 08/27/23 08:06 08/27/23 08:06 08/27/23 08:06 08/27/23 08:06 08/27/23 08:06 Narrative: [pt is awake and alert. oriented to place, time and person HEENT: [address] conjunctiva and NL buccal mucosa Neck: Supple, no tenderness Endocrine: No Thyromegaly. Vascular: No JVD or carotid bruit. Lymphatic: No cervical lymphadenopathy. Chest: CTA no DTP. Heart RRR, no extra sound or murmur. Abd: Soft, no tenderness, no rebound and no rigidity. Increase abd girth therefore clinically I could not exclude the possibility of intra abd mass or organomegaly. LE: Unable to feel dorsalis pedis pulse. Able to Doppler. Ulcer, stage II or deeper involving the medial aspect of the distal metatarsal measuring about 2 cm in diameter. Please refer to podiatry note for details on his foot exam. Neuro: A A O. Nl speech, comprehension and attention. Nl and symetrical motor and tone examination through out. []] Objective Lab Results 08/26/23 06:59 08/26/23 06:59 Microbiology Results Microbiology 08/25/23 15:58 Blood - Left Hand Blood Culture - Preliminary No Growth 1 Day 08/25/23 16:07 Blood - Left Hand Blood Culture - Preliminary No Growth 1 Day Meds Allergies and Active Meds Allergies ticagrelor [From Brilinta] Allergy (Unknown, Verified 06/21/23 18:26) Headache chlorhexidine Allergy (Verified 06/21/23 18:26) Unknown Reaction coban Allergy (Uncoded 05/09/23 13:07) Unknown Reaction Active Meds: Active Medications Generic Name Dose Route Start Last Admin Trade Name Freq PRN Reason Stop Dose Admin Acetaminophen 650 mg 08/25/23 15:26 08/26/23 14:59 Acetaminophen 325 Mg Tablet PO 08/24/24 15:25 650 mg Q6HR PRN Administration Pain Scale 1 - 3 or fever Atorvastatin Calcium 40 mg 08/25/23 21:00 08/26/23 22:35 Atorvastatin 40 Mg Tablet PO 08/24/24 20:59 40 mg QPM GEENA Administration Darbepoetin Thomas 60 mcg 08/28/23 10:00 Darbepoetin Thomas In Polysorbat 60 Mcg/Ml Vial IV-PUSH 08/27/24 09:59 We@1000 [facility] Protocol Dextrose 0 gm 08/25/23 15:29 Dextrose 50% In Water 25 Gm/50 Ml Syringe IV-PUSH 08/24/24 15:28 PRN PRN Hypoglycemia Enoxaparin Sodium 50 mg 08/26/23 10:30 08/26/23 23:21 Enoxaparin 50 Mg/0.5 Ml From Multidose Vial SUBCUT 08/25/24 10:29 50 mg Q12HR.10A.10P GEENA Administration Glucose 0 gm 08/25/23 15:29 Dextrose 40% Gel 15 Gm Tube PO 08/24/24 15:28 PRN PRN Hypoglycemia Heparin Sodium (Porcine) 3,000 unit 08/26/23 09:08 08/26/23 15:35 Heparin 10,000 Unit/10 Ml Vial IV 08/25/24 09:07 3,000 unit PRN PRN Administration Dialysis Heparin Sodium (Porcine) 2,000 unit 08/26/23 09:08 08/26/23 15:35 Heparin 10,000 Unit/10 Ml Vial IV 08/25/24 09:07 2,000 unit PRN PRN Administration Dialysis Piperacillin Sod/Tazobactam Sod 4.5 gm in 100 mls @ 25 mls/hr 08/26/23 00:30 08/27/23 01:29 Zosyn IV Not Given Q12H GEENA Sodium Chloride 1,000 mls @ 0 mls/hr 08/26/23 09:08 08/26/23 15:35 0.9% Sodium Chloride 1,000 Ml MISCELLANE 08/25/24 09:07 999 mls/hr .Q0M PRN Administration Dialysis As Directed Insulin Aspart 0 units 08/25/23 17:00 08/27/23 08:48 Insulin Aspart 300 Units/3 Ml Insuln.Pen SUBCUT 08/24/24 16:59 Not Given TID.WM.HS [facility] Protocol Insulin Glargine 40 units 08/25/23 22:00 08/26/23 22:36 Insulin Glargine 300 Units/3 Ml Insuln.Pen SUBCUT 08/24/24 21:59 40 units QHS GEENA Administration Levothyroxine Sodium 100 mcg 08/27/23 06:30 08/27/23 06:56 Levothyroxine 100 Mcg Tablet PO 08/26/24 06:29 100 mcg DAILY.0630 GEENA Administration Liothyronine Sodium 5 mcg 08/26/23 09:00 08/26/23 09:53 Liothyronine 5 Mcg Tablet PO 08/25/24 08:59 5 mcg QAM GEENA Administration Metoprolol Tartrate 25 mg 08/26/23 18:00 Metoprolol Tartrate 25 Mg Tablet PO 08/25/24 17:59 BID GEENA Midodrine 5 mg 08/26/23 09:08 08/26/23 14:59 Midodrine 5 Mg Tablet PO 08/25/24 09:07 5 mg DAILY PRN Administration Hypotension Morphine Sulfate 2 mg 08/25/23 15:26 Morphine Sulfate 2 Mg/Ml Vial IV-PUSH Q4H PRN Pain Scale 8 - 10 Paricalcitol 7 mcg 08/26/23 10:00 08/26/23 15:04 Paricalcitol 10 Mcg/2 Ml Vial IV-PUSH 08/25/24 09:59 7 mcg MoWeFr@1000 GEENA Administration Prochlorperazine Edisylate 5 mg 08/25/23 15:26 Prochlorperazine Edisylate 10 Mg/2 Ml Vial IV-PUSH 08/24/24 15:25 Q4H PRN Nausea And Vomiting Sodium Chloride 0 ml 08/26/23 09:08 08/26/23 15:35 Sodium Chloride 0.9 % 10 Ml Syringe IV-PUSH 08/25/24 09:07 10 ml PRN PRN Administration Flush Vancomycin HCl 1 each 08/25/23 15:32 Vancomycin - Pharmacy Dosing 1 Each Miscell IV ONCE PRN ZZ.Pharmacy Consult Protocol A&P - Hospitalist Assessment/Plan (1) Severe sepsis: (2) Cellulitis: (3) Diabetes mellitus: (4) ESRD (end stage renal disease): (5) PVD (peripheral vascular disease): (6) Ventricular bigeminy: (7) Septic shock: (8) Anemia: Plan Severe sepsis secondary to cellulitis of LE Hx of osteomyelitis of left foot, s/p partial amputation of left foot first ray 06/25/2023 Hx of MRSA bacteremia Diabetes mellitus with hyperglycemia?uncontrolled -Febrile here 102 F. tachycardic. -Repeat labs CBC, CMP, lactic acid -Check blood cultures here -X-ray of b/l feet -Venous and arterial studies ordered -Follow-up blood culture wound culture -Check ESR, CRP -Start broad-spectrum antibiotics IV antibiotics -Pain control as needed -Podiatry consult -ID consult -Strict glucose control. Insulin therapy while here ESRD on dialysis Anemia of renal disease -Consult nephrology to maintain dialysis schedule Home medications reviewed and resumed as appropriate Diet: Full liquids for now, advance diet once more stable and able to tolerate food DVT ppx: Heparin Code status: Full Status: Inpatient Discussed with patient at bedside. All questions answered. In agreement with theabove plan Alon Galvan MD Internal Medicine Hospitalist Attending Physician 08/26: The aforementioned paragraph was documented by my colleague Continue antibiotic for infected diabetic wound ulcer, probable osteomyelitis pending podiatry evaluation and recommendation in terms of imaging and intervention. Wound culture Hemodialysis, fluid, electrolytes and acid-base balance by nephrology team. Arterial studies showed mild peripheral vascular disease. Consideration to initiate aspirin and statin post operatively. DVT in the right femoral vein. Started patient on anticoagulation, dose adjusted for kidney. Convert to oral anticoagulation post operatively. Bigeminy. Patient was started on beta-joi. Blood pressure is stable. Recent echocardiogram showed normal ejection fraction. Continue to monitor. Severe sepsis, septic shock and hypotension resolved after IV fluid infusion wasgiven yesterday. Continue IV antibiotic. Lactic is normal. Anemia. Likely anemia of chronic disease. Patient may have other possible etiologies. He would need to have anemia workup that could be done and completed in the outpatient setting. Patient may need to have EGD, colonoscopy,age-appropriate cancer screening. These are to be arranged by PCP. Documented By: Denice Dahl MD 08/27/23 0852 Signed By: <Electronically signed by Denice Dahl MD> 08/27/23 0855 [facility] Work Phone: 1(654) 838-449207-16-2024 Progress note Author Alfredo Acosta [facility] August 27, 2023 8:38am Note Date/Time August 27, 2023 8:[address] [facility] [address] [place] [address] Infect. Disease Progress Note Signed Patient: Seth Murphy MR#: [id number] : 1955 Acct:[id number] Age/Sex: 67 / M Adm Date: 4 Loc: N Room: [address] [place] [address] Type: ADM IN Attending Dr: Denice Dahl MD Copies to: ~ Date of Service: 08/27/2023 Subjective Interval history: Patient was sleeping when I walked in the room easily awakens but does state he still feels tired. No new physical complaints. Exam Physical Exam Vital Signs: Temp Pulse Resp BP Pulse Ox O2 Del Method 98.7 F 68 17 118/56 L 92 L Room Air 08/27/23 08:06 08/27/23 08:06 08/27/23 08:06 08/27/23 08:06 08/27/23 08:06 08/27/23 08:06 Const General: cooperative, comfortable and no acute distress Orientation: oriented x3 HEENT Head: normal to inspection Neck Neck: normal visual inspection Chest Chest palpation & inspection: normal inspection of the chest Resp Auscultation: clear to auscultation bilaterally Cardio Rate: regular rate Rhythm: regular rhythm GI Inspection: normal to inspection Palpation: soft and nontender Auscultation: normal bowel sounds Neuro General: patient oriented x3 Extrem General: abnormal to inspection (see above) Objective Microbiology Microbiology: Microbiology - Results from entire visit 08/25/23 15:58 Blood - Left Hand Blood Culture - Preliminary No Growth 1 Day 08/25/23 16:07 Blood - Left Hand Blood Culture - Preliminary No Growth 1 Day Allergies and Medications Allergies and Active Meds Allergies ticagrelor [From Brilinta] Allergy (Unknown, Verified 06/21/23 18:26) Headache chlorhexidine Allergy (Verified 06/21/23 18:26) Unknown Reaction coban Allergy (Uncoded 05/09/23 13:07) Unknown Reaction Active Medications Acetaminophen (Acetaminophen 325 Mg Tablet) 650 mg PO Q6HR PRN PRN Reason: Pain Scale 1 - 3 or fever Stop: 08/24/24 15:25 Last Admin: 08/26/23 14:59 Dose: 650 mg Atorvastatin Calcium (Atorvastatin 40 Mg Tablet) 40 mg PO QPM GEENA Stop: 08/24/24 20:59 Last Admin: 08/26/23 22:35 Dose: 40 mg Darbepoetin Thomas (Darbepoetin Thomas In Polysorbat 60 Mcg/Ml Vial) 60 mcg IV-PUSHWe@1000 GEENA; Protocol Stop: 08/27/24 09:59 Dextrose (Dextrose 50% In Water 25 Gm/50 Ml Syringe) 0 gm IV-PUSH PRN PRN PRN Reason: Hypoglycemia Stop: 08/24/24 15:28 Enoxaparin Sodium (Enoxaparin 50 Mg/0.5 Ml From Multidose Vial) 50 mg SUBCUT Q12HR.10A.10P GEENA Stop: 08/25/24 10:29 Last Admin: 08/26/23 23:21 Dose: 50 mg Glucose (Dextrose 40% Gel 15 Gm Tube) 0 gm PO PRN PRN PRN Reason: Hypoglycemia Stop: 08/24/24 15:28 Heparin Sodium (Porcine) (Heparin 10,000 Unit/10 Ml Vial) 3,000 unit IV PRN PRN PRN Reason: Dialysis Stop: 08/25/24 09:07 Last Admin: 08/26/23 15:35 Dose: 3,000 unit Heparin Sodium (Porcine) (Heparin 10,000 Unit/10 Ml Vial) 2,000 unit IV PRN PRN PRN Reason: Dialysis Stop: 08/25/24 09:07 Last Admin: 08/26/23 15:35 Dose: 2,000 unit Piperacillin Sod/Tazobactam Sod (Zosyn) 4.5 gm in 100 mls @ 25 mls/hr IV Q12H [facility] Last Admin: 08/27/23 01:29 Dose: Not Given Sodium Chloride (0.9% Sodium Chloride 1,000 Ml) 1,000 mls @ 0 mls/hr MISCELLANE.Q0M PRN PRN Reason: Dialysis Stop: 08/25/24 09:07 Last Admin: 08/26/23 15:35 Dose: 999 mls/hr Insulin Aspart (Insulin Aspart 300 Units/3 Ml Insuln.Pen) 0 units SUBCUT TID.WM.HS [facility]; Protocol Stop: 08/24/24 16:59 Last Admin: 08/26/23 22:57 Dose: 14 units Insulin Glargine (Insulin Glargine 300 Units/3 Ml Insuln.Pen) 40 units SUBCUT QHS [facility] Stop: 08/24/24 21:59 Last Admin: 08/26/23 22:36 Dose: 40 units Levothyroxine Sodium (Levothyroxine 100 Mcg Tablet) 100 mcg PO DAILY.0630 [facility] Stop: 08/26/24 06:29 Last Admin: 08/27/23 06:56 Dose: 100 mcg Liothyronine Sodium (Liothyronine 5 Mcg Tablet) 5 mcg PO QAM [facility] Stop: 08/25/24 08:59 Last Admin: 08/26/23 09:53 Dose: 5 mcg Metoprolol Tartrate (Metoprolol Tartrate 25 Mg Tablet) 25 mg PO BID [facility] Stop: 08/25/24 17:59 Midodrine (Midodrine 5 Mg Tablet) 5 mg PO DAILY PRN PRN Reason: Hypotension Stop: 08/25/24 09:07 Last Admin: 08/26/23 14:59 Dose: 5 mg Morphine Sulfate (Morphine Sulfate 2 Mg/Ml Vial) 2 mg IV-PUSH Q4H PRN PRN Reason: Pain Scale 8 - 10 Paricalcitol (Paricalcitol 10 Mcg/2 Ml Vial) 7 mcg IV-PUSH MoWeFr@1000 [facility] Stop: 08/25/24 09:59 Last Admin: 08/26/23 15:04 Dose: 7 mcg Prochlorperazine Edisylate (Prochlorperazine Edisylate 10 Mg/2 Ml Vial) 5 mg IV- PUSH Q4H PRN PRN Reason: Nausea And Vomiting Stop: 08/24/24 15:25 Sodium Chloride (Sodium Chloride 0.9 % 10 Ml Syringe) 0 ml IV-PUSH PRN PRN PRN Reason: Flush Stop: 08/25/24 09:07 Last Admin: 08/26/23 15:35 Dose: 10 ml Vancomycin HCl (Vancomycin - Pharmacy Dosing 1 Each Miscell) 1 each IV ONCE PRN; Protocol PRN Reason: ZZ.Pharmacy Consult A&P - Infectious Disease Assessment/Plan (1) Ulcer of foot: (2) ESRD (end stage renal disease): (3) Fever: Plan Patient still with fever overnight. He is been on vancomycin and Zosyn. MRI has been ordered. Blood cultures negative at 1 day. Superficial wound culture pending Documented By: Alfredo Acosta MD [id number]/27/[id number] Signed By: <Electronically signed by MD Alfredo Acosta> 08/27/23 0838 [facility] Work Phone: [phone] Consult note Author CWCristo Pop [facility] August 26, 2023 7:13pm Note Date/Time August 26, 2023 7:[address] [facility] [address] [place] [address] Podiatry Consult Note Signed Patient: Seth Murphy MR#: [id number] : 1955 Acct:[id number] Age/Sex: 67 / M Adm Date: 4 Loc: 4N Room: [address] [place] [address] Type: ADM IN Attending Dr: Denice Dahl MD Copies to: MD Romeo Dave,DPM, MS, CWS Denice Dahl MD~ HPI Data of Consult Consult Date: 08/26/23 Requesting Physician: Denice Dahl MD Primary Care Provider: Nav Alejo MD Consult Narrative Reason for consult: Infected diabetic ulceration medial right foot History of present illness: Mr. Murphy is a 67 year old male who was seen this time for consultation regarding infected diabetic ulceration medial right foot around the first metatarsophalangeal joint. Patient is uncertain how long it has been there is apparently months . Patient had been seen recently at the [place] [facility] with Dr. Schwarz, who was apparently planning on applying a graft soon. Patient denies fevers, chills, nausea, vomiting, sweats, diarrhea, chest pain orcalf pain he denies injuries or trauma to right foot. He admits to appetite being somewhat poor. Wound care right foot: Medihoney applied topically Review of Systems Review of Systems All other systems reviewed & are negative unless noted below or in HPI [facility] Medical History MRSA bacteremia Cellulitis of left foot Osteomyelitis of foot, left, acute Ulcer of right foot Osteomyelitis Wound infection Vitamin D deficiency Venous stasis Umbilical hernia Systolic heart failure Hypothyroidism AV fistula infection Arteriovenous fistula Cataract (lens) fragments in eye following cataract surgery, bilateral Proteus infection Foot ulcer, left Requires assistance with activities of daily living (ADL) Limited mobility Chronic kidney disease (CKD) Left ventricular dysfunction Non-ST elevation myocardial infarction (NSTEMI) in recovery phase Acute systolic CHF (congestive heart failure), NYHA class 3 Chronic venous insufficiency Asthma Hyperlipidemia Hypertension Osteoarthritis CAD (coronary artery disease) Diabetes End stage renal disease on dialysis Surgical History H/O heart artery stent History of tonsillectomy and adenoidectomy Hx of cholecystectomy Family History Mother Diabetes Heart disease Father Diabetes Father 74 yrs Diabetes Heart disease Mother Diabetes Heart disease 92 yrs Social History Smoking Status: Never smoker Substance Use Type: None Meds Medications and Allergies Allergies ticagrelor [From Brilinta] Allergy (Unknown, Verified 06/21/23 18:26) Headache chlorhexidine Allergy (Verified 06/21/23 18:26) Unknown Reaction coban Allergy (Uncoded 05/09/23 13:07) Unknown Reaction Home Medications insulin lispro 100 unit/mL subcutaneous pen See Rx Instructions .Route .COMPLEX 04/15/18 [History Confirmed 08/25/23] levothyroxine 50 mcg tablet 100 mcg PO DAILY 04/15/18 [History Confirmed 08/25/23] atorvastatin 40 mg tablet 40 mg PO QPM #0 tabs 04/17/18 [Rx Confirmed 08/25/23] calcium carbonate 750 mg PO TID 04/09/23 [History Confirmed 08/25/23] dextrose 6 gram/15 mL oral gel 25 g PO Q15M PRN hypoglycemia 04/09/23 [History Confirmed 08/25/23] insulin NPH-regular 70-30 U-100 insulin 100 unit/mL subcutaneous pen (Humulin 70/30 U-100 KwikPen) 60 unit subcut QHS 04/09/23 [History Confirmed 08/25/23] liothyronine 5 mcg tablet 5 mcg PO QAM 04/09/23 [History Confirmed 08/25/23] multivitamin-ferrous fumarate-folic acid 18 mg-400 mcg tablet (Centrum Complete)1 tab PO DAILY 04/09/23 [History Confirmed 08/25/23] polyethylene glycol 3350 17 gram oral powder packet (Miralax) 17 g PO DAILY PRN constipation 04/09/23 [History Confirmed 08/25/23] midodrine 5 mg tablet See Rx Instructions .Route .COMPLEX #30 tabs 08/16/23 [Rx Confirmed 08/25/23] Exam Physical Exam Vital Signs: Temp Pulse Resp BP Pulse Ox O2 Del Method 97.9 F 74 16 86/46 L 95 Room Air 08/26/23 13:15 08/26/23 17:00 08/26/23 12:00 08/26/23 17:00 08/26/23 13:15 08/26/23 12:00 Narrative: Patient is awake alert and orient x 3 I am familiar with the patient as I have seen him in the distant past for multiple ulcerations. He did also see my partner Dr. Felisa Win for amputation partial left foot in the more recent past. Exact date unknown. Patient's nurse is present through examination. Vascular: Decreased pedal pulses right foot. Please see recent noninvasive vascular studies performed earlier today patient does have peripheral arterial disease history. He also has deep vein thrombosis right leg. Please see resultalso performed earlier today. Neurological: Neuropathy present right lower extremity including motor, autonomic, sensory types. There is no pain. Also skeletal strength shows significant weakness to the intact toes right foot. He was not taken out of bed for muscle weightbearing examination, or gait evaluation as ulceration was exposed per my consult. Orthopedic examination: Shows no sign of exposed bone first metatarsophalangeal joint ulceration that was very deep and could easily have exposure to the joint capsule though I did visibly did not see it at this time. There is no signs of swelling or erythema to also suggest low grade osteomyelitis this definitely hasto be a concern due to patient's chronicity of this ulceration being open as well as as comorbidities of poor diabetic control, neuropathy, peripheral arterial disease. Dermatology: Ulceration medial right foot is a first metatarsophalangeal joint diabetic ulceration which is chronic been present for multiple months exact dateand time unknown. No erythema nor edema surprisingly there is purulence expressed when I palpate exsanguinate from plantar to dorsal approximately 0.5 cm? of purulence was expressed there is no active bleeding. Is able to wipe away the wound bed of nonviable skin and slough the ulceration does appear to godown to the subcutaneous tissue joint capsule was not visibly appreciated was very close at this level please note obviously. Ulceration measurement appears to be 1.0 cm x 1.0 cm time 0.2 cm in depth. No pain to palpation or examination. X-rays 08-25-23: Right foot shows multiple calcifications throughout the entire foot especially in the intermetatarsal region there is mild swelling around the first metatarsophalangeal joint where ulceration is located. Osteopenia is diffuse. The medial aspect the first metatarsal it is somewhat hard to appreciate the cortex and 2 views therefore I would have to suspect there may beunderlying low-grade osteomyelitis MRI definitely is warranted at this time for further evaluation. Joint space narrowing also noted first MPJ due to osteoarthritis. Results - Podiatry Labs 08/26/23 06:59 08/26/23 06:59 ESR 86 mm/hr (0-19) H 08/26/23 06:59 Hemoglobin A1c 8.9 % (4.3-5.6) H 08/26/23 06:59 Microbiology Microbiology: Microbiology - Results from entire visit 08/25/23 15:58 Blood - Left Hand Blood Culture - Preliminary No Growth 1 Day 08/25/23 16:07 Blood - Left Hand Blood Culture - Preliminary No Growth 1 Day Assessment/Plan (1) Diabetic ulcer of right foot associated with diabetes mellitus due to underlying condition, with fat layer exposed: Plan: 1. Patient was seen today for consultation which was performed and dictated. 2. Physical examination was performed as well as chart which was reviewed at length. 3. Radiographs were reviewed there is suspicion in my mind of medial first metatarsal head irregularity to the cortex was barely visible this may be due toosteopenia versus osteomyelitis low-grade with mild time that ulceration been open for multiple months is a high chance that is osteomyelitis therefore MRI was warranted and was ordered. Patient was advised of such and voiced understanding. 4. I was able to wipe away with gauze pad the nonviable skin and slough this ulceration further inspection it does appear to go down very near to the joint capsule however not exposed this is definite subcutaneous ulceration. Medihoneyhad been applied on outpatient basis this would be okay at this point to be continued pending cultures. 5. Culture was obtained of the purulence expressed from examination of the ulceration medial right foot first metatarsal phalangeal joint. There is deep culture sent for comprehensive culture and sensitivities. 6. Patient was advised I would recommend he go to the operating room to be debrided of nonviable tissue to the right foot medial diabetic ulceration with antibiotic power lavage however there is a chance we might need bone biopsy to confirm or identify the infectious organism for osteomyelitis pending MRI. We will hold off from scheduling the surgery which could be performed under local anesthetic please note, to MRI is completed hopefully tomorrow. 7. MRI ordered right foot with and without contrast. This is obviously pendinghis renal concerns. 8. Patient was advised he is a very serious condition and he knows this is he has been a patient of mine or ours in the past he was advised no guarantees given or implied about healing, timeline of healing or limb salvage nor discharge from hospital. 9. Patient was advised if culture is negative and has no germs we could possibly apply a skin graft while he was here in the hospital before he is discharged as well however I cannot guarantee this. 10. Consult: Physical therapy gait training nonweightbearing right forefoot if possible with postop shoe or boot with walker assistance. No forefoot pressure. 11. Rx: Wound care: Vashe she should be applied to a gauze to wipe weight ulceration medial right foot all nonviable tissue, drainage or debris or bleeding, apply a new Vashe soaked gauze to the ulceration apply for 5 minutes, then remove, wash foot, apply Eucerin skin cream to not open areas of skin, applied nystatin antifungal powder between toes, apply Medihoney to the ulceration medial right foot and applied dry sterile dressing daily. 12. Offload bilateral feet and heels at all time. 13. Please note I was not consulted for the left foot: only the right. 14. I will see the patient tomorrow pending MRI I would like to see MRI before I reappoint to see patient if MRI cannot be performed we will wait to that is available as patient is stable clinically right foot and does not need to be rushed to the operating room at this moment. 15. Thanks for consultation Code(s): E08.621 - Diabetes mellitus due to underlying condition with foot ulcer; L97.512- Non-pressure chronic ulcer of other part of right foot with fat layer exposed (2) Type 2 diabetes mellitus with diabetic chronic kidney disease: Plan: This is being treated by medical physician. Code(s): E11.22 - Type 2 diabetes mellitus with diabetic chronic kidney disease (3) ESRD (end stage renal disease): Plan: This is being treated by medical physician. Code(s): N18.6 - End stage renal disease (4) Diabetes mellitus with diabetic neuropathy: Plan: This is being treated by medical physician. Code(s): E11.40 - Type 2 diabetes mellitus with diabetic neuropathy, unspecified (5) Peripheral arterial disease: Plan: Vascular consult has already been performed earlier today as well as DVT was positive on venous duplex-please to review patient's chart. Code(s): I73.9 - Peripheral vascular disease, unspecified (6) Deep vein thrombosis of right lower extremity: Plan: Vascular consult has already been performed. Please see reports in patient's chart. Code(s): I82.401 - Acute embolism and thrombosis of unspecified deep veins of right lowerextremity Plan Positive DVT was identified on venous duplex earlier today-please see vascular consultation/medical management for treatment. Documented By: Romeo Pop,ISAIAH, , DAVID 08/11 07/04 3750 Signed By: <Electronically signed by ISAIAH Pop> 08/26/[address] [facility] Work Phone: [phone] 493-918107-15-2024 Consult note Author Marina Agudelo [facility] August 26, 2023 2:32pm Note Date/Time August 26, 2023 2:[address] [facility] [address] [place] [address] Nephrology Consult Note Signed Patient: Seth Murphy MR#: [id number] : 1955 Acct:[id number] Age/Sex: 67 / M Adm Date: 4 Loc: 4N Room: [address] [place] [address] Type: ADM IN Attending Dr: Denice Dahl MD Copies to: MD Marina Dave MD Rafik Massouh, MD~ Providers Consult Date: 08/26/23 Requesting Provider: Denice Dahl MD Primary Care Provider: Nav Alejo MD HPI Reason for Consult: Management of ESRD and dialysis History of Present Illness: Mr. Murphy is a 67-year-old male with medical history significant for ESRD, DM, HTN, CAD, Peripheral vascular disease with amputation of left big toe. He presented to the [facility] due to suspected infection on his right foot. He is having increased pain and swelling over this past several days. On presentation to the ED he had fever, chills and confusion. He had no leukocytosis but was febrile, tachycardic, normotensive. Sodium 128, glucose 500, lactic acid 2.2. While at [place] he was started on IV vancomycin and Rocephin. He was transferred here for dialysis and continued sepsis management. Upon arrival to [facility] he was noted to have a fever of 102, tachycardia, blood pressure 150s over 50s. He appeared septic. 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 Patient receives dialysis on MWF schedule at [place] [facility] [place] Nephrology was consulted for ESRD management and dialysis. Patient was seen and examined at bedside this morning. He was lying in bed ill-appearing. He reports being febrile with chills. He denies chest pain, shortness of breath, headache. Patient was taken to dialysis and has been seen on dialysis as well. Monitor during dialysis showed ventricular PVCs with bigeminy. Blood pressure stable 140s over 60s and pulse 90 to 100/min. Patient still febrile 38.2 ?C. He has a functioning AV fistula however has a small scab on the proximal end with surrounding erythema. Review of Systems Review of Systems All other systems reviewed & are negative unless noted below or in HPI [facility] Medical History MRSA bacteremia Cellulitis of left foot Osteomyelitis of foot, left, acute Ulcer of right foot Osteomyelitis Wound infection Vitamin D deficiency Venous stasis Umbilical hernia Systolic heart failure Hypothyroidism AV fistula infection Arteriovenous fistula Cataract (lens) fragments in eye following cataract surgery, bilateral Proteus infection Foot ulcer, left Requires assistance with activities of daily living (ADL) Limited mobility Chronic kidney disease (CKD) Left ventricular dysfunction Non-ST elevation myocardial infarction (NSTEMI) in recovery phase Acute systolic CHF (congestive heart failure), NYHA class 3 Chronic venous insufficiency Asthma Hyperlipidemia Hypertension Osteoarthritis CAD (coronary artery disease) Diabetes End stage renal disease on dialysis Surgical History H/O heart artery stent History of tonsillectomy and adenoidectomy Hx of cholecystectomy Family History Mother Diabetes Heart disease Father Diabetes Father 74 yrs Diabetes Heart disease Mother Diabetes Heart disease 92 yrs Social History Smoking Status: Never smoker Substance Use Type: None Meds Medications & Allergies Allergies ticagrelor [From Brilinta] Allergy (Unknown, Verified 06/21/23 18:26) Headache chlorhexidine Allergy (Verified 06/21/23 18:26) Unknown Reaction coban Allergy (Uncoded 05/09/23 13:07) Unknown Reaction Home Medications insulin lispro 100 unit/mL subcutaneous pen See Rx Instructions .Route .COMPLEX 04/15/18 [History Confirmed 08/25/23] levothyroxine 50 mcg tablet 100 mcg PO DAILY 04/15/18 [History Confirmed 08/25/23] atorvastatin 40 mg tablet 40 mg PO QPM #0 tabs 04/17/18 [Rx Confirmed 08/25/23] calcium carbonate 750 mg PO TID 04/09/23 [History Confirmed 08/25/23] dextrose 6 gram/15 mL oral gel 25 g PO Q15M PRN hypoglycemia 04/09/23 [History Confirmed 08/25/23] insulin NPH-regular 70-30 U-100 insulin 100 unit/mL subcutaneous pen (Humulin 70/30 U-100 KwikPen) 60 unit subcut QHS 04/09/23 [History Confirmed 08/25/23] liothyronine 5 mcg tablet 5 mcg PO QAM 04/09/23 [History Confirmed 08/25/23] multivitamin-ferrous fumarate-folic acid 18 mg-400 mcg tablet (Centrum Complete)1 tab PO DAILY 04/09/23 [History Confirmed 08/25/23] polyethylene glycol 3350 17 gram oral powder packet (Miralax) 17 g PO DAILY PRN constipation 04/09/23 [History Confirmed 08/25/23] midodrine 5 mg tablet See Rx Instructions .Route .COMPLEX #30 tabs 08/16/23 [Rx Confirmed 08/25/23] Active Medications: Active Medications Acetaminophen (Acetaminophen 325 Mg Tablet) 650 mg PO Q6HR PRN PRN Reason: Pain Scale 1 - 3 or fever Stop: 08/24/24 15:25 Last Admin: 08/25/23 17:52 Dose: 650 mg Atorvastatin Calcium (Atorvastatin 40 Mg Tablet) 40 mg PO QPM GEENA Stop: 08/24/24 20:59 Last Admin: 08/25/23 21:49 Dose: 40 mg Darbepoetin Thomas (Darbepoetin Thomas In Polysorbat 60 Mcg/Ml Vial) 60 mcg IV-PUSHWe@1000 GEENA; Protocol Stop: 08/27/24 09:59 Dextrose (Dextrose 50% In Water 25 Gm/50 Ml Syringe) 0 gm IV-PUSH PRN PRN PRN Reason: Hypoglycemia Stop: 08/24/24 15:28 Enoxaparin Sodium (Enoxaparin 50 Mg/0.5 Ml From Multidose Vial) 50 mg SUBCUT Q12HR.10A.10P GEENA Stop: 08/25/24 10:29 Glucose (Dextrose 40% Gel 15 Gm Tube) 0 gm PO PRN PRN PRN Reason: Hypoglycemia Stop: 08/24/24 15:28 Heparin Sodium (Porcine) (Heparin 10,000 Unit/10 Ml Vial) 3,000 unit IV PRN PRN PRN Reason: Dialysis Stop: 08/25/24 09:07 Heparin Sodium (Porcine) (Heparin 10,000 Unit/10 Ml Vial) 2,000 unit IV PRN PRN PRN Reason: Dialysis Stop: 08/25/24 09:07 Piperacillin Sod/Tazobactam Sod (Zosyn) 4.5 gm in 100 mls @ 25 mls/hr IV Q12H [facility] Last Admin: 08/26/23 00:28 Dose: 25 mls/hr Sodium Chloride (0.9% Sodium Chloride 1,000 Ml) 1,000 mls @ 0 mls/hr MISCELLANE.Q0M PRN PRN Reason: Dialysis Stop: 08/25/24 09:07 Sodium Chloride (0.9% Sodium Chloride 1,000 Ml) 1,000 mls @ 70 mls/hr IV .[id number] [facility] Stop: 08/27/23 00:17 Last Admin: 08/26/23 09:56 Dose: 70 mls/hr Insulin Aspart (Insulin Aspart 300 Units/3 Ml Insuln.Pen) 0 units SUBCUT TID.WM.HS [facility]; Protocol Stop: 08/24/24 16:59 Last Admin: 08/26/23 09:52 Dose: 3 units Insulin Glargine (Insulin Glargine 300 Units/3 Ml Insuln.Pen) 40 units SUBCUT QHS [facility] Stop: 08/24/24 21:59 Last Admin: 08/25/23 21:51 Dose: 40 units Levothyroxine Sodium (Levothyroxine 100 Mcg Tablet) 100 mcg PO DAILY.0630 [facility] Stop: 08/26/24 06:29 Liothyronine Sodium (Liothyronine 5 Mcg Tablet) 5 mcg PO QAM [facility] Stop: 08/25/24 08:59 Last Admin: 08/26/23 09:53 Dose: 5 mcg Midodrine (Midodrine 5 Mg Tablet) 5 mg PO DAILY PRN PRN Reason: Hypotension Stop: 08/25/24 09:07 Morphine Sulfate (Morphine Sulfate 2 Mg/Ml Vial) 2 mg IV-PUSH Q4H PRN PRN Reason: Pain Scale 8 - 10 Paricalcitol (Paricalcitol 10 Mcg/2 Ml Vial) 7 mcg IV-PUSH MoWeFr@1000 [facility] Stop: 08/25/24 09:59 Prochlorperazine Edisylate (Prochlorperazine Edisylate 10 Mg/2 Ml Vial) 5 mg IV- PUSH Q4H PRN PRN Reason: Nausea And Vomiting Stop: 08/24/24 15:25 Sodium Chloride (Sodium Chloride 0.9 % 10 Ml Syringe) 0 ml IV-PUSH PRN PRN PRN Reason: Flush Stop: 08/25/24 09:07 Vancomycin HCl (Vancomycin - Pharmacy Dosing 1 Each Miscell) 1 each IV ONCE PRN; Protocol PRN Reason: ZZ.Pharmacy Consult Exam Physical Exam Vital Signs: Temp Pulse Resp BP Pulse Ox O2 Del Method 99.4 F H 92 16 104/53 L 97 Room Air 08/26/23 04:00 08/26/23 04:00 08/25/23 23:09 08/26/23 04:00 08/26/23 04:00 08/26/23 04:00 Narrative: General: Lying in bed. Ill-appearing. HEENT: Normocephalic, atraumatic. No jaundice, pallor. Moist mucous membranes Cardiovascular: Regular rate and rhythm, no murmurs. No JVD Respiratory: Good bilateral air entry. No wheezing Abdominal: Nondistended, nontender Extremities: No edema. Amputation of left great toe. Bandaging over right footto cover suspected infected wound Right forearm fistula with palpable thrill Musculoskeletal: No large joint swelling Neurological: Awake, alert, oriented x 3 Psych: Normal mood and affect. Cooperative Vascular access: Right forearm AV fistula. He has small scab with surrounding erythema at the proximal end. Results - Nephrology Labs 08/26/23 06:59 08/26/23 06:59 Labs: 08/25/23 08/26/23 15:58 06:59 BUN 37 H 45 H Creatinine 8.91 H 10.52 H D Albumin 3.3 L 3.0 L Radiology Impressions Impressions - last 24 hours: Impressions Foot X-Ray 08/25/23 15:31 IMPRESSION: There is a fracture obliquely traversing the base of the shaft of the left second metatarsal. Soft tissue swelling is noted bilaterally possibly relating to cellulitis. No definite radiographic evidence of osteomyelitis. Vascular calcifications are present bilaterally. There has been interval amputation of the left first digit and partial amputation of the left first metatarsal. Additional chronic appearing findings are noted as above. Impression dictated by: Reagan Burger M.D.08/25/2023 5:38 PM Dictation Location: [place] [address] Any impression(s) listed above is documentation that was entered by the reading physician into a diagnostic report(s) for Seth Murphy. I have reviewed the report(s) and am incorporating any findings in the treatment plan of this patient where applicable. A&P - Nephrology Assessment/Plan (1) ESRD (end stage renal disease): Plan: Patient has ESRD related to diabetic nephropathy and hypertensive nephrosclerosis. He receives hemodialysis at the dialysis unit on MWF schedule at [facility]. (2) Ventricular bigeminy: Plan: -Patient has ventricular bigeminy on the monitor at the time of dialysis. Bloodpressure is stable. Review of old EKG showed that bigeminy has been old since June 2023 with no significant change in the EKG. - Last cardiology consult in the chart on April 17, 2018. Patient had non-STEMI in the past. Most recent 2D echo on June 23, 2023 showed EF 60 to 65% with heavily calcified mitral leaflets. Less likely represent vegetations. (3) Severe sepsis: Plan: Patient has suspected sepsis due to infection of ulcer on his right foot. He isfebrile with elevated CRP. Patient was started empirically on vancomycin and Zosyn. (4) Type 2 diabetes mellitus with diabetic chronic kidney disease: Plan: Patient has longstanding history of DM2 on insulin with multiple diabetic complications. He continues to have elevated hemoglobin A1c with poorly controlled diabetes (5) Anemia of renal disease: Plan: Hemoglobin at target 9-11 g/dL on erythropoietin IV with dialysis (6) Benign hypertension with end-stage renal disease: Plan: Blood pressure controlled with ultrafiltration. He takes midodrine for intradialytic hypotension. (7) Secondary hyperparathyroidism: Plan: Patient has secondary hyperparathyroidism due to hyperphosphatemia and ESRD. Hecurrently calcium carbonate for hyperphosphatemia. He also receives IV Zemplar for dialysis Plan * Hemodialysis today for 210 minutes, 2K bath. Ultrafiltration 1.5 to 2 L as tolerated. * Patient was started on vancomycin and Zosyn per ID recommendation. Dose will be adjusted by the pharmacy. * Patient on Aranesp 60 mcg weekly that is due for next Saturday. Hemoglobin at target. * Continue Zemplar 7 mcg 3 times a week. Intact. Check phosphorus will be monitored as outpatient. * Blood pressure is stable or even mildly elevated with tachycardia and bigeminy. Will add metoprolol 25 mg twice a day. I would recommend cardiology consultation or follow-up as outpatient to see if the patient needs any further intervention for bigeminy. I appreciate this consultation we will be happy to follow the patient with you during hospital stay This document was dictated utilizing computerized voice recognition technology. Errors in grammar, spelling, and or syntax may be noted. The creator of this document does not proofread for this. Attending Physician Attestation: I personally saw this patient on the day of the encounter, reviewed the history,performed the lloyd elements of the exam, formulated the plan of care and confirmed the written note. I agree with the findings and plan as documented in this note and have edited it if needed to reflect my findings and plan. Documented By: Marina Agudelo MD 08/26/23 1146 Signed By: <Electronically signed by MD Marina Agudelo> 08/26/[address] [facility] Work Phone: [phone]) 931-466007-15-2024 Progress note Author Denice Dahl [facility] August 26, 2023 9:50am Note Date/Time August 26, 2023 9:[address] [facility] [address] [place] [address] Hospitalist Progress Note Signed Patient: Seth Murphy MR#: [id number] : 1955 Acct:[id number] Age/Sex: 67 / M Adm Date: 4 Loc: 4N Room: 6X7697-5 Type: ADM IN Attending Dr: Denice Dahl MD Copies to: ~ Date of Service: 08/26/2023 Subjective Subjective Narrative: Patient is a 67 year old male with past medical history of poorly controlled type 2 diabetes, hypertension, coronary artery disease, ESRD on dialysis Saturday, and asthma who presented to [facility] due to suspectedinfected of his left foot. Patient has been complaining of increase pain and swelling of left foot over the past several days. He presented to [place] withfevers, chills, confusion, chest x-ray with no acute pathology. 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 Patient is a dialysis patient for which he was sent to our facility to continue to maintain dialysis schedule while treated for underlying sepsis. On arrival here, patient was noted with fever 102, tachycardia in 100s, blood pressure 150s over 50s. Patient is ill-appearing and shivering. Appears septic. However he is alert awake oriented x 3. Saturating well on room air. Patient states that he has been having pain and swelling of the left foot however he also have erythema and redness on the right foot and both lower extremities. skins changes noted on both feet. Patient was hospitalized here back in June 2023 for left foot osteomyelitis. He does have history of MRSA bacteremia. At that time back in June 25, 2023 patient was found to have ulceration of the left first metatarsal with osteomyelitis for which she underwent partial first ray amputation of the left foot. Decision was made to accept him here for further evaluation and management. 08/25: She is lying in bed. No chest or abdominal pain. No nausea or vomiting. No headaches, loss of conscious or seizure. Exam Physical Exam Vital Signs: Temp Pulse Resp BP Pulse Ox O2 Del Method 99.4 F H 92 16 104/53 L 97 Room Air 08/26/23 04:00 08/26/23 04:00 08/25/23 23:09 08/26/23 04:00 08/26/23 04:00 08/26/23 04:00 Narrative: [pt is awake and alert. oriented to place, time and person HEENT: [address] conjunctiva and NL buccal mucosa Neck: Supple, no tenderness Endocrine: No Thyromegaly. Vascular: No JVD or carotid bruit. Lymphatic: No cervical lymphadenopathy. Chest: CTA no DTP. Heart RRR, no extra sound or murmur. Abd: Soft, no tenderness, no rebound and no rigidity. Increase abd girth therefore clinically I could not exclude the possibility of intra abd mass or organomegaly. LE: Unable to feel dorsalis pedis pulse. Able to Doppler. Ulcer, stage II or deeper involving the medial aspect of the distal metatarsal measuring about 2 cm in diameter. Please refer to podiatry note for details on his foot exam. Neuro: A A O. Nl speech, comprehension and attention. Nl and symetrical motor and tone examination through out. []] Objective Lab Results 08/26/23 06:59 08/26/23 06:59 Meds Allergies and Active Meds Allergies ticagrelor [From Brilinta] Allergy (Unknown, Verified 06/21/23 18:26) Headache chlorhexidine Allergy (Verified 06/21/23 18:26) Unknown Reaction coban Allergy (Uncoded 05/09/23 13:07) Unknown Reaction Active Meds: Active Medications Generic Name Dose Route Start Last Admin Trade Name Freq PRN Reason Stop Dose Admin Acetaminophen 650 mg 08/25/23 15:26 08/25/23 17:52 Acetaminophen 325 Mg Tablet PO 08/24/24 15:25 650 mg Q6HR PRN Administration Pain Scale 1 - 3 or fever Atorvastatin Calcium 40 mg 08/25/23 21:00 08/25/23 21:49 Atorvastatin 40 Mg Tablet PO 08/24/24 20:59 40 mg QPM GEENA Administration Darbepoetin Thomas 60 mcg 08/28/23 10:00 Darbepoetin Thomas In Polysorbat 60 Mcg/Ml Vial IV-PUSH 08/27/24 09:59 We@1000 [facility] Protocol Dextrose 0 gm 08/25/23 15:29 Dextrose 50% In Water 25 Gm/50 Ml Syringe IV-PUSH 08/24/24 15:28 PRN PRN Hypoglycemia Enoxaparin Sodium 50 mg 08/26/23 10:00 Enoxaparin 30 Mg/0.3 Ml Syringe SUBCUT 08/25/24 09:59 Q12HR.10A.10P [facility] Glucose 0 gm 08/25/23 15:29 Dextrose 40% Gel 15 Gm Tube PO 08/24/24 15:28 PRN PRN Hypoglycemia Heparin Sodium (Porcine) 3,000 unit 08/26/23 09:08 Heparin 10,000 Unit/10 Ml Vial IV 08/25/24 09:07 PRN PRN Dialysis Heparin Sodium (Porcine) 2,000 unit 08/26/23 09:08 Heparin 10,000 Unit/10 Ml Vial IV 08/25/24 09:07 PRN PRN Dialysis Piperacillin Sod/Tazobactam Sod 4.5 gm in 100 mls @ 25 mls/hr 08/26/23 00:30 08/26/23 00:28 Zosyn IV 25 mls/hr Q12H GEENA Administration Sodium Chloride 1,000 mls @ 0 mls/hr 08/26/23 09:08 0.9% Sodium Chloride 1,000 Ml MISCELLANE 08/25/24 09:07 .Q0M PRN Dialysis As Directed Sodium Chloride 1,000 mls @ 70 mls/hr 08/26/23 10:00 0.9% Sodium Chloride 1,000 Ml IV 08/27/23 00:17 .[id number] GEENA Insulin Aspart 0 units 08/25/23 17:00 08/25/23 21:50 Insulin Aspart 300 Units/3 Ml Insuln.Pen SUBCUT 08/24/24 16:59 12 units TID.WM.HS GEENA Administration Protocol Insulin Glargine 40 units 08/25/23 22:00 08/25/23 21:51 Insulin Glargine 300 Units/3 Ml Insuln.Pen SUBCUT 08/24/24 21:59 40 units QHS GEENA Administration Levothyroxine Sodium 100 mcg 08/26/23 09:00 Levothyroxine 100 Mcg Tablet PO 08/25/24 08:59 DAILY GEENA Liothyronine Sodium 5 mcg 08/26/23 09:00 Liothyronine 5 Mcg Tablet PO 08/25/24 08:59 QAM GEENA Midodrine 5 mg 08/26/23 09:08 Midodrine 5 Mg Tablet PO 08/25/24 09:07 DAILY PRN Hypotension Morphine Sulfate 2 mg 08/25/23 15:26 Morphine Sulfate 2 Mg/Ml Vial IV-PUSH Q4H PRN Pain Scale 8 - 10 Paricalcitol 7 mcg 08/26/23 10:00 Paricalcitol 10 Mcg/2 Ml Vial IV-PUSH 08/25/24 09:59 MoWeFr@1000 GEENA Prochlorperazine Edisylate 5 mg 08/25/23 15:26 Prochlorperazine Edisylate 10 Mg/2 Ml Vial IV-PUSH 08/24/24 15:25 Q4H PRN Nausea And Vomiting Sodium Chloride 0 ml 08/26/23 09:08 Sodium Chloride 0.9 % 10 Ml Syringe IV-PUSH 08/25/24 09:07 PRN PRN Flush Vancomycin HCl 1 each 08/25/23 15:32 Vancomycin - Pharmacy Dosing 1 Each Miscell IV ONCE PRN ZZ.Pharmacy Consult Protocol A&P - Hospitalist Assessment/Plan (1) Severe sepsis: (2) Cellulitis: (3) Diabetes mellitus: (4) ESRD (end stage renal disease): Plan Severe sepsis secondary to cellulitis of LE Hx of osteomyelitis of left foot, s/p partial amputation of left foot first ray 06/25/2023 Hx of MRSA bacteremia Diabetes mellitus with hyperglycemia?uncontrolled -Febrile here 102 F. tachycardic. -Repeat labs CBC, CMP, lactic acid -Check blood cultures here -X-ray of b/l feet -Venous and arterial studies ordered -Follow-up blood culture wound culture -Check ESR, CRP -Start broad-spectrum antibiotics IV antibiotics -Pain control as needed -Podiatry consult -ID consult -Strict glucose control. Insulin therapy while here ESRD on dialysis Anemia of renal disease -Consult nephrology to maintain dialysis schedule Home medications reviewed and resumed as appropriate Diet: Full liquids for now, advance diet once more stable and able to tolerate food DVT ppx: Heparin Code status: Full Status: Inpatient Discussed with patient at bedside. All questions answered. In agreement with theabove plan Alon Galvan MD Internal Medicine Hospitalist Attending Physician 08/25: The aforementioned paragraph was documented by my colleague Continue antibiotic for infected diabetic wound ulcer, probable osteomyelitis pending podiatry evaluation and recommendation in terms of imaging and intervention. Wound culture Hemodialysis, fluid, electrolytes and acid-base balance by nephrology team. Arterial studies pending. Dopplerable dorsalis pedis pulse DVT in the right femoral vein. Started patient on anticoagulation, dose adjusted for kidney. Documented By: Denice Dahl MD 08/26/23 0947 Signed By: <Electronically signed by Denice Dahl MD> 08/26/23 0950 [facility] Work Phone: 1(591) 732-622307-15-2024 Consult note Author Alfredo Acosta [facility] August 26, 2023 9:13am Note Date/Time August 26, 2023 9:[address] [facility] [address] [place] [address] Infect. Disease Consult Note Signed Patient: Seth Murphy MR#: [id number] : 1955 Acct:[id number] Age/Sex: 67 / M Adm Date: 4 Loc: 4N Room: [id number] Type: ADM IN Attending Dr: Denice Dahl MD Copies to: MD Alfredo Dave MD Rafik Massouh, MD~ HPI Data of Consult Consult date: 08/26/23 Requesting Physician: Denice Dahl MD Primary Care Provider: Nav Alejo MD Consult Narrative History of present illness: Mr. Murphy is a 67 year old male who is known to me from foot infections in the past. He is a dialysis patient and has a fistula. He came in due to a right foot ulceration over his first MTPJ joint. He had fevers and associated chills but no significant pain but this is likely due to the neuropathy he has. Deniesnausea vomiting or diarrhea. CC: Denice Dahl MD Review of Systems Review of Systems All other systems reviewed & are negative unless noted below or in HPI [facility] Medical History MRSA bacteremia Cellulitis of left foot Osteomyelitis of foot, left, acute Ulcer of right foot Osteomyelitis Wound infection Vitamin D deficiency Venous stasis Umbilical hernia Systolic heart failure Hypothyroidism AV fistula infection Arteriovenous fistula Cataract (lens) fragments in eye following cataract surgery, bilateral Proteus infection Foot ulcer, left Requires assistance with activities of daily living (ADL) Limited mobility Chronic kidney disease (CKD) Left ventricular dysfunction Non-ST elevation myocardial infarction (NSTEMI) in recovery phase Acute systolic CHF (congestive heart failure), NYHA class 3 Chronic venous insufficiency Asthma Hyperlipidemia Hypertension Osteoarthritis CAD (coronary artery disease) Diabetes End stage renal disease on dialysis Surgical History H/O heart artery stent History of tonsillectomy and adenoidectomy Hx of cholecystectomy Family History Mother Diabetes Heart disease Father Diabetes Father 74 yrs Diabetes Heart disease Mother Diabetes Heart disease 92 yrs Social History Smoking Status: Never smoker Substance Use Type: None Allergies and Medications Allergies and Active Meds Allergies ticagrelor [From Brilinta] Allergy (Unknown, Verified 06/21/23 18:26) Headache chlorhexidine Allergy (Verified 06/21/23 18:26) Unknown Reaction coban Allergy (Uncoded 05/09/23 13:07) Unknown Reaction Active Medications Acetaminophen (Acetaminophen 325 Mg Tablet) 650 mg PO Q6HR PRN PRN Reason: Pain Scale 1 - 3 or fever Stop: 08/24/24 15:25 Last Admin: 08/25/23 17:52 Dose: 650 mg Atorvastatin Calcium (Atorvastatin 40 Mg Tablet) 40 mg PO QPM [facility] Stop: 08/24/24 20:59 Last Admin: 08/25/23 21:49 Dose: 40 mg Dextrose (Dextrose 50% In Water 25 Gm/50 Ml Syringe) 0 gm IV-PUSH PRN PRN PRN Reason: Hypoglycemia Stop: 08/24/24 15:28 Glucose (Dextrose 40% Gel 15 Gm Tube) 0 gm PO PRN PRN PRN Reason: Hypoglycemia Stop: 08/24/24 15:28 Heparin Sodium (Porcine) (Heparin 5,000 Unit/Ml Vial) 5,000 unit SUBCUT Q8HR [facility] Stop: 08/24/24 21:59 Last Admin: 08/26/23 06:51 Dose: 5,000 unit Piperacillin Sod/Tazobactam Sod (Zosyn) 4.5 gm in 100 mls @ 25 mls/hr IV Q12H [facility] Last Admin: 08/26/23 00:28 Dose: 25 mls/hr Insulin Aspart (Insulin Aspart 300 Units/3 Ml Insuln.Pen) 0 units SUBCUT TID.WM.HS [facility]; Protocol Stop: 08/24/24 16:59 Last Admin: 08/25/23 21:50 Dose: 12 units Insulin Glargine (Insulin Glargine 300 Units/3 Ml Insuln.Pen) 40 units SUBCUT QHS [facility] Stop: 08/24/24 21:59 Last Admin: 08/25/23 21:51 Dose: 40 units Levothyroxine Sodium (Levothyroxine 100 Mcg Tablet) 100 mcg PO DAILY [facility] Stop: 08/25/24 08:59 Liothyronine Sodium (Liothyronine 5 Mcg Tablet) 5 mcg PO QAM GEENA Stop: 08/25/24 08:59 Morphine Sulfate (Morphine Sulfate 2 Mg/Ml Vial) 2 mg IV-PUSH Q4H PRN PRN Reason: Pain Scale 8 - 10 Prochlorperazine Edisylate (Prochlorperazine Edisylate 10 Mg/2 Ml Vial) 5 mg IV- PUSH Q4H PRN PRN Reason: Nausea And Vomiting Stop: 08/24/24 15:25 Vancomycin HCl (Vancomycin - Pharmacy Dosing 1 Each Miscell) 1 each IV ONCE PRN; Protocol PRN Reason: ZZ.Pharmacy Consult Exam Physical Exam Vital Signs: Vital Signs Temp Pulse Pulse Resp BP BP Pulse Ox 08/26/23 04:00 99.4 F H 92 104/53 L 97 08/25/23 23:09 99.4 F H 75 16 128/56 L 97 08/25/23 20:18 100.5 F H 86 125/64 94 L 08/25/23 20:09 08/25/23 20:03 100.4 F H 89 16 124/65 95 08/25/23 17:00 101.2 F H 96 24 138/61 92 L 08/25/23 15:32 08/25/23 15:00 102.6 F H 101 H 17 158/57 H 96 O2 Del Method 08/26/23 04:00 Room Air 08/25/23 23:09 Room Air 08/25/23 20:18 08/25/23 20:09 Room Air 08/25/23 20:03 Room Air 08/25/23 17:00 Room Air 08/25/23 15:32 Room Air 08/25/23 15:00 Room Air Intake and Output 08/25/23 08/26/23 08/26/23 23:59 07:59 15:59 Intake Total 0 / 0 Output Total 0 / 0 Balance 0 / 0 0 / 0 Intake: Oral 0 / 0 Output: Urine 0 / 0 Other: Weight 198 lb 3.129 oz Date of Last Bowel Movement 08/24/23 Patient Weight 08/26/23 23:59 Weight 198 lb 3.129 oz Const General: cooperative, comfortable and no acute distress HEENT Head: normal to inspection Neck Neck: normal visual inspection Chest Chest palpation & inspection: normal inspection of the chest Resp Auscultation: clear to auscultation bilaterally Cardio Rate: regular rate Rhythm: regular rhythm GI Inspection: normal to inspection Palpation: soft and nontender Auscultation: normal bowel sounds Musc Other: Right foot with gauze dressing but ulceration noted over his first MTPJ joint. Neuro General: patient oriented x3 Extrem General: abnormal to inspection (see above) Results - Infectious Disease Labs 08/26/23 06:59 08/26/23 06:59 Labs: 08/25/23 15:58: Corrected WBC 8.1, Uncorrected WBC Count 8.1, BUN 37 H, Creatinine 8.91 H 08/26/23 06:59: Corrected WBC 8.5, Uncorrected WBC Count 8.5, BUN 45 H, Creatinine 10.52 H D Laboratory Tests 06/21/23 08/26/23 19:35 06:59 ESR 97 H C-Reactive Prot, Quant 27.4 H Microbiology Results Microbiology Narrative: 08/25/23 15:58 Blood Culture - Pending Blood - Left Hand 08/25/23 16:07 Blood Culture - Pending Blood - Left Hand Imaging and Cardiology Status: report viewed by me Results Comments: Xray [place] feet: There has been interval amputation of the majority of the first digit and first metatarsal. There is a fracture obliquely traversing the base of the shaft of the left second metatarsal. There is narrowing of the tarsometatarsal junctions on the left. There is narrowing of the first metatarsophalangeal joint on the right. Vascular calcifications are present along with soft tissue swelling bilaterally. There is plantar surface calcaneal spurring bilaterally. There is diffuse osteopenia bilaterally. A&P - Infectious Disease (1) Ulcer of foot: (2) ESRD (end stage renal disease): (3) Fever: Plan Patient with fever and elevated markers of inflammation. Normal white count. X- ray as above. Empirically on vancomycin and Zosyn. Patient with known history of MRSA as wellas other pathogens. Covered with vancomycin and Zosyn for now. Await podiatry consult and further imaging if to be done. At this time only blood cultures pending. Documented By: Alfredo Acosta MD 08/26/23906 Signed By: <Electronically signed by MD Alfredo Acosta> 08/26/23912 [facility] Work Phone: [phone]) 766-386007-14-2024 History and physical note Author Alon Santiago [facility] August 25, 2023 3:50pm Note Date/Time August 25, 2023 3:47 pm [facility] [address] [place] [address] Hospitalist H&P Signed Patient: Seth Murphy MR#: [id number] : 1955 Acct:[id number] Age/Sex: 67 / M Adm Date: 4 Loc: Room: [address] [place] [address] Type: ADM IN Attending Dr: lAon Santiago MD Copies to: MD Alon Dave MD~ HPI DATE OF EXAMINATION: 08/25/23 CHIEF COMPLAINT: Fever, confusion HISTORY OF PRESENT ILLNESS: Patient is a 67 year old male with past medical history of poorly controlled type 2 diabetes, hypertension, coronary artery disease, ESRD on dialysis Saturday, and asthma who presented to [facility] due to suspectedinfected of his left foot. Patient has been complaining of increase pain and swelling of left foot over the past several days. He presented to [place] withfevers, chills, confusion, chest x-ray with no acute pathology. 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 Patient is a dialysis patient for which he was sent to our facility to continue to maintain dialysis schedule while treated for underlying sepsis. On arrival here, patient was noted with fever 102, tachycardia in 100s, blood pressure 150s over 50s. Patient is ill-appearing and shivering. Appears septic. However he is alert awake oriented x 3. Saturating well on room air. Patient states that he has been having pain and swelling of the left foot however he also have erythema and redness on the right foot and both lower extremities. skins changes noted on both feet. Patient was hospitalized here back in June 2023 for left foot osteomyelitis. He does have history of MRSA bacteremia. At that time back in June 25, 2023 patient was found to have ulceration of the left first metatarsal with osteomyelitis for which she underwent partial first ray amputation of the left foot. Decision was made to accept him here for further evaluation and management. Review of Systems Review of Systems Review of systems: 10 systems are reviewed and are negative except as mentioned elsewhere in the documentation [facility] Medical History MRSA bacteremia Cellulitis of left foot Osteomyelitis of foot, left, acute Ulcer of right foot Osteomyelitis Wound infection Vitamin D deficiency Venous stasis Umbilical hernia Systolic heart failure Hypothyroidism AV fistula infection Arteriovenous fistula Cataract (lens) fragments in eye following cataract surgery, bilateral Proteus infection Foot ulcer, left Requires assistance with activities of daily living (ADL) Limited mobility Chronic kidney disease (CKD) Left ventricular dysfunction Non-ST elevation myocardial infarction (NSTEMI) in recovery phase Acute systolic CHF (congestive heart failure), NYHA class 3 Chronic venous insufficiency Asthma Hyperlipidemia Hypertension Osteoarthritis CAD (coronary artery disease) Diabetes End stage renal disease on dialysis Surgical History H/O heart artery stent History of tonsillectomy and adenoidectomy Hx of cholecystectomy Family History Mother Diabetes Heart disease Father Diabetes Father 74 yrs Diabetes Heart disease Mother Diabetes Heart disease 92 yrs Social History Smoking Status: Never smoker Substance Use Type: None Meds Medications and Allergies Allergies ticagrelor [From Brilinta] Allergy (Unknown, Verified 06/21/23 18:26) Headache chlorhexidine Allergy (Verified 06/21/23 18:26) Unknown Reaction coban Allergy (Uncoded 05/09/23 13:07) Unknown Reaction Home Medications insulin lispro 100 unit/mL subcutaneous pen See Rx Instructions .Route .COMPLEX 04/15/18 [History Confirmed 08/25/23] levothyroxine 50 mcg tablet 100 mcg PO DAILY 04/15/18 [History Confirmed 08/25/23] atorvastatin 40 mg tablet 40 mg PO QPM #0 tabs 04/17/18 [Rx Confirmed 08/25/23] calcium carbonate 750 mg PO TID 04/09/23 [History Confirmed 08/25/23] dextrose 6 gram/15 mL oral gel 25 g PO Q15M PRN hypoglycemia 04/09/23 [History Confirmed 08/25/23] insulin NPH-regular 70-30 U-100 insulin 100 unit/mL subcutaneous pen (Humulin 70/30 U-100 KwikPen) 60 unit subcut QHS 04/09/23 [History Confirmed 08/25/23] liothyronine 5 mcg tablet 5 mcg PO QAM 04/09/23 [History Confirmed 08/25/23] multivitamin-ferrous fumarate-folic acid 18 mg-400 mcg tablet (Centrum Complete)1 tab PO DAILY 04/09/23 [History Confirmed 08/25/23] polyethylene glycol 3350 17 gram oral powder packet (Miralax) 17 g PO DAILY PRN constipation 04/09/23 [History Confirmed 08/25/23] midodrine 5 mg tablet See Rx Instructions .Route .COMPLEX #30 tabs 08/16/23 [Rx Confirmed 08/25/23] Exam Physical Exam Vital Signs: Temp Pulse Resp BP Pulse Ox O2 Del Method 102.6 F H 101 H 17 158/57 H 96 Room Air 08/25/23 15:00 08/25/23 15:00 08/25/23 15:00 08/25/23 15:00 08/25/23 15:00 08/25/23 15:00 Narrative: Const General: cooperative, ill appearing, septic appearing HEENT Normal oropharyngeal mucosa without any ulcers or exudates Eyes: Conjunctiva pale Pulmonary Auscultation: clear to auscultation , no crackles, no wheezes Cardiovascular Rate: normal rate Rhythm: regular rhythm Heart Sounds: S1 normal, S2 normal and no murmurs GI Inspection: non-distended Palpation: soft, not firm and nontender. No rigidity or rebound. Deferred Neuro General: alert, awake and oriented x3. No obvious new focal deficit. Ill appearing. Extrem General: no cyanosis, + pedal edema. bilateral feet wounds, malodorous noted from his feet. erythema and redness more so on RLE. Psych Appearance: ill appearing. Results - Hospitalist H&P Lab Results Labs: Laboratory Last Values POC Glucose 393 mg/dl 08/25/23 15:04 POC Glucose Comment Glu2: cleaned meter 08/25/23 15:04 POC Glucose Comment Will notify /rn 08/25/23 15:04 Assessment & Plan Assessment/Plan (1) Severe sepsis: (2) Cellulitis: (3) Diabetes mellitus: (4) ESRD (end stage renal disease): Plan Severe sepsis secondary to cellulitis of LE Hx of osteomyelitis of left foot, s/p partial amputation of left foot first ray 06/25/2023 Hx of MRSA bacteremia Diabetes mellitus with hyperglycemia?uncontrolled -Febrile here 102 F. tachycardic. -Repeat labs CBC, CMP, lactic acid -Check blood cultures here -X-ray of b/l feet -Venous and arterial studies ordered -Follow-up blood culture wound culture -Check ESR, CRP -Start broad-spectrum antibiotics IV antibiotics -Pain control as needed -Podiatry consult -ID consult -Strict glucose control. Insulin therapy while here ESRD on dialysis Anemia of renal disease -Consult nephrology to maintain dialysis schedule Home medications reviewed and resumed as appropriate Diet: Full liquids for now, advance diet once more stable and able to tolerate food DVT ppx: Heparin Code status: Full Status: Inpatient Discussed with patient at bedside. All questions answered. In agreement with theabove plan Alon Galvan MD Internal Medicine Hospitalist Attending Physician IP vs OBS Justification Based on differential dx, clinical care plan, and risk of adverse events, if untreated, in my clinical judgement this patient requires an acute care setting as: INPATIENT because of an expectation of an over 2 midnight stay. Estimated length of stay (# of days): 4 Documented By: Alon Santiago MD 08/25/23 15 34 Signed By: <Electronically signed by Alon Santiago MD> 08/25/23 [facility] Work Phone: 1(121) 896-908104-17-2024 NotePatient having procedure @ [place] per [place]. Alarcon. Order & office note emailed to Bernadette program scheduler @ Sonia Wright RN Director Physician Services @ [facility] [facility], & faxed to LORE Mazariegos @ [place] office. Notified patient's procedure will be scheduled @ [facility] & [place] office will notify patient. [phone] Received call from Delilah @ [place] [facility] relaying patient is scheduled for procedure 06/06/2023 @ [facility] [place] [facility] will contact patient with date of procedure & instructions. [facility] Saturday06/03/2023 @ 0800 am @ [facility]. Procedure scheduled for 06/06/2023 @ 12 noon arrival time 11 am @ [facility] (case #[id number]) Notified patients Dee Dee date/time for PAT & date/time for procedure, relayed to Dee Dee instructions for procedure will be given to patient during PAT visit.[facility] CenterComment on above: Result Comment: Electronically Signed By: Liya Diehl\.br\Date and Time Signed: 05/29/23 14:14 [id number] NoteSubjective Patient ID: Seth Murphy is a 67 y.o. male who presents for Follow-up (Check maturation Rbrac-ceph AVF created on 01/18/23). Seth is a 67 year old male with [...] the past 36 hour(s)). No follow-ups on file.[facility]12-27-2023 Note Subjective Patient ID: Seth Murphy is a 67 y.o. male who presents for Post-op (S/P RUE AV Fistula creation on 01/18/23). Seth is a 67 year old male with [...] visit: End stage renal disease on dialysis ([facility]) - Vasc Us Dialysis Fistula; Future -Surgical incision is [...] the past 36 hour(s)). No follow-ups on file.[facility]12-21-2023 History of Present illness Narrative* Seth Ying, DO - 01/31/2023 10:00 AM EST Subjective Seth Murphy is a 67 y.o. male Chief [...] hypotension. He has a history of remote PCI/TREE PRUNER intervention of the LAD in 2018 with [...] (325-650 mg) by mouth every 6 hours., Disp:, Rfl: alteplase (Cathflo Activase) 1 mg/mL injection, [...] by mouth once daily. As directed, Disp: ,Rfl: VITAMIN B COMPLEX ORAL, Take 1 tablet by mouth once daily., Disp: , Rfl: Assessment/Plan 1. Arteriosclerotic heart disease 2. S/P PTCA (percutaneous transluminal coronary angioplasty) 3. ESRD (end stage renal disease) on dialysis ([facility]) 4. Diabetes mellitus of other type without complication, unspecified whether chcf insulin use ([facility]) 5. Essential hypertension 6. Hyperlipidemia, unspecified hyperlipidemia type 7. Never smoked any substance [facility] Work Phone: 1(461) 279-284312-21-2023 Instructions* Patient Instructions* Sarita Hernandes CMA - 01/31/2023 10:00 AM [...] time of your visit. documented in [facility]Cl[facility] Work Phone: 1(614) 169-668212-08-2023 NotePatient: Seth Diazt Procedure Summary Date: 01/18/23 Room / Location: [facility] OPERATING ROOM 06 / [facility] Operating Room Anesthesia Start: 1008 Anesthesia Stop: 1150 Procedure: Right Radial Cephalic Fistula Creation - CPT Codes 66049,76453,34607,98531 (Right: Arm Upper) Diagnosis: End stage renal disease on dialysis ([facility]) Encounter for pre-operative examination (End stage renal disease on dialysis ([facility]) [N18.6, Z99.2]) (Encounter for pre-operative examination [Z01.818]) Surgeons: Greg Alarcon MD Responsible Provider: Maranda Chavez MD Anesthesia Type: general ASA Status: [...] PACU per anesthesia protocol. No notable events documented.[facility]12-08-2023 Note Airway Date/Time: 01/18/2023 10:16 AM Urgency: elective Airway not difficult General Information and Staff Patient location during procedure: OR Anesthesiologist: Maranda Chavez MD Resident/INSTALLERS MECHANICAL/CAA: Katerin Chung MD Performed: resident/INSTALLERS MECHANICAL/CAA Indications and Patient Condition Indications for airway [...] (cm): 23 Number of attempts at approach: 1UnAult[facility]12-08-2023 NotePatient: Seth Murphy Procedure Information Date/Time: 01/18/23 1000 Procedure: Right Upper Extremity Fistula Creation - CPT Codes 85782,58881,68924,68518 (Right) Location: [facility] OPERATING ROOM 06 / [facility] Operating Room Surgeons: Greg Alarcon MD Relevant Problems /Renal (+) End [...] products. Plan discussed with attending. Additional Equipment RequestsOhioHealth [facility]ide [facility]12-08-2023 Note Pre-operative History and Physical Seth Murphy is a 67 y.o. male who [...] kidney disease Coronary artery disease Diabetes mellitus ([facility]) Heart disease Hyperlipidemia Hypertension Hypothyroidism Myocardial infarction ([facility]) Peripheral vascular disease ([facility]) Past Surgical History: Procedure Laterality [...] rate and rhythm regular Assessment and Plan: Seth Murphy is a 67 y.o. male who [...] Ana Phan MD PGY-4 Vascular Surgery Resident 01/18/23UnA[facility]12-05-2023 NoteArteriovenous Fistula Procedure Note Indications: The patient is a 67 y.o. male with end-stage renal disease on dialysis is here because of failure of maturation of radiocephalic AV fistula Pre-operative Diagnosis: Radiocephalic AV fistula Post-operative Diagnosis: same. Operation: Fistulogram and central venogram Surgeon: Greg Alarcon MD Anesthesia: Anesthesia type not filed in the log. ASA Class: ASA status not filed in the log. Procedure Details T the patient was taken back to the Truck Greaser placed in supine position appropriate cardiopulmonary except [...] present and scrubbed for the entire procedure. [facility]11-30-2023 NoteasUnAultman Hospital11-29-2023 NoteSubjective Patient ID: Seth Murphy is a 67 y.o. male who presents for Follow-up (radiocephalic AV fistula creation 10/04/22). Seth is a 67 year old male with [...] balloon assisted maturation with Dr. Alarcon in rn labor and delivery -Discussed the risks, benefits, alternatives of the procedure with the patient and time was alloted for all questions to be answered. Patient provided both verbal and written consent No diagnosis found. No orders of the defined types were placed in this encounter. No results found for this or any previous visit (from the past 36 hour(s)). No follow-ups on file.[facility]09-05-2023 Note aSubjective Patient ID: Seth Murphy is a 66 y.o. male who [...] the past 36 hour(s)). No follow-ups on file.[facility]09-05-2023 Note aSubjective Patient ID: Seth Murphy is a 66 y.o. male who presents for Follow-up (2 week post op R AVF creation). HPI Seth Murphy is a 66 y.o. male with a history of ESRD and failed left upper extremity access who is s/p R UE RCAVF with Dr. Alarcon 10/02/2022. He denies R hand/arm pain/swelling/paresthesias/numbness/weakness. Using CVC for HD without issues- [place] Review of Systems Neurological: Positive for numbness. [...] ESRD (end stage renal disease) on dialysis ([facility]) Vascular US upper extremity hemodialysis access duplex right #ESRD on HD using CVC currently with recent creation R RCAVF - hold off on cannulation as AVF matures -continue with HD via CVC - hand/customer service cashier exercises demonstrated - US of AVF at 6-8 weeks and f/up at that time, sooner if neededUnAultman Hospital08-23-2023 NotePatient: Seth Murphy Procedure Summary Date: 10/02/22 Room / Location: [facility] OPERATING ROOM 06 / [facility] Operating Room Anesthesia Start: 1705 Anesthesia Stop: 1846 Procedure: CREATION, RADIOCEPHALIC AV FISTULA (Right: Arm Lower) Diagnosis: (End stage renal disease) Surgeons: Greg Alarcon MD Responsible Provider: Petra Degroot MD Anesthesia Type: general ASA Status: 4 Anesthesia Type: general Vitals Value Taken Time BP 105/68 10/02/22 1859 Temp 36.2 ???C (97.2 ???F) 10/02/22 184 [...] PACU per anesthesia protocol. No notable events documented.[facility]08-22-2023 Note Patient: Seth Murphy Procedure Summary Date: 10/02/22 Room / Location: [facility] OPERATING ROOM 06 / [facility] Operating Room Anesthesia Start: 1705 Anesthesia Stop: Procedure: CREATION, RADIOCEPHALIC AV FISTULA (Right: Arm Lower) Diagnosis: (End stage renal disease) Surgeons: Greg Alarcon MD Responsible Provider: Petra Degroot MD Anesthesia Type: general ASA Status: 4 Anesthesia Post Transport Note Transport to: PACU O2 Route: room air Patient Monitor: direct observation Transport: uneventful Patient condition is: stableUnAultman Hospital08-22-2023 Note Airway Date/Time: 10/02/2022 5:21 PM Urgency: elective Airway not difficult General Information and Staff Patient location during procedure: OR Anesthesiologist: Petra Degroot MD Resident/INSTALLERS MECHANICAL/CAA: LATRELL Luciano Performed: resident/INSTALLERS MECHANICAL/LATRELL Indications and Patient Condition Indications for airway [...] ETT fit tight but without resistance through cords/tracheaUnAultman Hospital08-22-2023 NotePatient: Seth Murphy Procedure Information Date/Time: 10/02/22 1430 Procedure: CREATION, AV FISTULA (Right) - start as last case Location: [facility] OPERATING ROOM 06 / [facility] Operating Room Surgeons: Greg Alarcon MD Relevant Problems No relevant active [...] with patient who. Plan discussed with resident, INSTALLERS MECHANICAL and CAA. Additional Equipment RequestsUnAultman Hospital06-29-2023 Evaluation note* Encounter Date Diagnosis Assessment Notes Treatment Notes Treatment Clinical Notes Jul, Bacteremia (ICD-10 - R78.81) Patient [...] indeed receiving the correct antibiotic. Jul, Methicillin resistan t Staphylococcus aureus infection as the cause of diseases classified elsewhere (ICD-10 - B95.62) Jul, Infection of arteriovenous dialysis fistula, subsequent encounter (ICD-10 - T82.7XXD) [facility] Other 06-09-2023 NoteMicrobiology PROCEDURE: Blood Culture Charcoal [R1] SOURCE: Blood BODY SITE: COLLECTED DATE/TIME: 07/13/2022 16:50 EDT RECEIVED DATE/TIME: 07/13/2022 17:35 EDT START DATE/TIME: 07/13/2022 17:35 EDT FREE TEXT SOURCE: HD CVC venous lumen Aaron FISH, Cristino Chao MD FINAL REPORTS Final Report [] Verified Date/Time: 07/20/2022 18:00 EDT No growth at 7 days. Performing Locations R1: This test was performed at: [facility], [address] [place] [address], [address] [place] [address], JymwhySouthview Medical CenterComment on above:Performed By: #### [id number] ####[facility] [address] [place], [place] [id number] NoteMicrobiology PROCEDURE: Blood Culture Charcoal [R1] SOURCE: Blood BODY SITE: COLLECTED DATE/TIME: 07/13/2022 16:50 EDT RECEIVED DATE/TIME: 07/13/2022 17:33 EDT START DATE/TIME: 07/13/2022 17:33 EDT FREE TEXT SOURCE: HD CVC Aaron FISH, Cristino Chao MD FINAL REPORTS Final Report [] Verified Date/Time: 07/20/2022 18:00 EDT No growth at 7 days. Performing Locations R1: This test was performed at: [facility], [address] [place] [address], [id number], [address] [place], [place] [address]Comment on above:Performed By: #### [id number], [id number], [id number] #### [facility] [address] [place] [address] [phone] NoteMicrobiology PROCEDURE: Blood Culture Charcoal [R1] SOURCE: Blood BODY SITE: Arm R COLLECTED DATE/TIME: 07/12/2022 17:44 EDT RECEIVED DATE/TIME: 07/12/2022 18:33 EDT START DATE/TIME: 07/12/2022 18:33 EDT FREE TEXT SOURCE: IV start PHILLIPS AGACNP-BC, Nathalie PHILLIPS AGACNP-BC, Nathalie FINAL REPORTS Final Report [] Verified Date/Time: 07/20/2022 07:00 EDT No growth at 7 days. Performing Locations R1: This test was performed at: [facility], [address] [place] [address], [id number] [place] [address], [address] [place], [place] [address]Comment on above:Performed By: #### [id number], [id number] #### [facility] [address] [place] [address] [phone] NoteMicrobiology PROCEDURE: Blood Culture Charcoal [R1] SOURCE: Blood BODY SITE: Hand R COLLECTED DATE/TIME: 07/12/2022 16:34 EDT RECEIVED DATE/TIME: 07/12/2022 16:43 EDT START DATE/TIME: 07/12/2022 16:43 EDT FREE TEXT SOURCE: PHILLIPS AGACNP-BC, Nathalie PHILLIPS AGACNP-BC, Nathalie FINAL REPORTS Final Report [] Verified Date/Time: 07/19/2022 18:00 EDT No growth at 7 days. Performing Locations R1: This test was performed at: [facility], [address] [place] [address], [id number]- , [place], GblthlSouthview Medical CenterComment on above:Performed By: #### [id number], [id number], [id number] #### [facility] [address] [place] [address] [phone] NoteAdmission and Discharge Information Admit Date/Time:07/12/2022 15:58 Admitting Physician - Michael FISH, Fuentes Lemons Consulting Physician - Aaron FISH, Cristino Acosta M.D, Alfredo Menjivar MD, Loco Alarcon MD, Greg F. Admitting Diagnoses: Discharge Order Date Discharge Patient - Ordered -- 07/19/22 16:59:00 EDT, SNF Discharge Diagnoses 1. Sepsis, 07/13/2022 2. Cellulitis of arm, 07/12/2022 3. AV fistula infection, 07/12/2022 4. Coronary artery disease, 07/12/2022 5. Chronic systolic heart failure, 07/12/2022 6. Insulin dependent type 2 diabetes mellitus, 07/12/2022 7. Peripheral neuropathy, 07/12/2022 8. ESRD on dialysis, 07/12/2022 9. Hypothyroidism, 07/12/2022 10. Venous insufficiency of both lower extremities, 07/12/2022 11. Venous stasis ulcer, 07/12/2022 12. On deep vein thrombosis (DVT) prophylaxis, 07/12/2022 Procedure History Arteriovenous fistula (07/16/2022), Insertion of hemodialysis catheter (07/02/2022), Fistulogram with contrast (03/15/2022), Fluoroscopic fistulogram with contrast (11/02/2021), Fistulogram with contrast (08/04/2020), Removal of catheter (07/07/2020), MULTI SLIDE MACHINE TENDER (06/16/2020), AV - Creation of arteriovenous fistula (03/31/2020), AV fistula recirculation (08/06/2019), Abdominal hernia, Cholecystectomy, H/O: tracheostomy, Placement of stent in cardiac conduit. Hospital Course 86-year-old male with PMH of CAD, [place], chronic systolic heart failure, HTN, HLD, T2IDDM, peripheral neuropathy, ESRD on HD, hypothyroidism, b/l LE venous insufficiency, venous stasis ulcer?chronic. -Patient presented to [facility] as a direct admit at the request of Dr. Alarcon vascular services secondary to left AV fistula infection status post thrombosed left brachiocephalic AV fistula. Left permacath HD catheter intact. -Patient was treated for sepsis secondary to AVF infection present on admission, with IV vancomycin, IV Zosyn, final wound and tissue culture was positive for MRSA, IV Zosyn was discontinued, per ID IV vancomycin x4 weeks, blood cultures x3 sets remain preliminary negative. Patient underwent I/D on07/[address] Alarcon, continue wet-to-dry dressings as ordered, left upper extremity duplex showed progressive thrombosis of surrounding soft tissue. Patient is appropriate for discharge from vascular standpoint. Sepsis has resolved and midodrine will decrease to prior dosing of HD days. -Patient has a left chest permacath for ongoing HD use. Echo: EF 60-65%, grade 1 diastolic dysfunction, trace MR, TR, RVSP is 30 mmHg, left pleural effusion, no overt bacterial vegetation seen however recommend ASIF if clinically indicated for better evaluation of possible endocarditis. Patient has no fever, chills, leukocytosis or evidence of endocarditis this was discussed with nephrology and ID as well. Pleural effusion communicated to Dr. Walker, for ongoing fluid mgt. via HD, pt. resp. stable on RA. Case was discussed with Dr. Acosta via phone today recommend IV vancomycin x4 weeks-in light of negative echo for vegetation, no indication for ASIF at this time, patient may discharge from ID standpoint. IV vancomycin discussed with pharmacy with recommendations for IV Vanco 500 mg on 07/20 and defer further dosing to managing pharmacy as patient will need Vanco level prior to next dose being decided as he is an HD patient. -Case was discussed with Dr. Walker via phone today CRM has set up IV vancomycin with HD center, echocardiogram was reviewed, JASPAL orders provided. Patient is appropriate for discharge from nephrologystandpoint. -Patient states that all admitting symptoms have significantly improved and/or resolved. Patient iseating and drinking without complaints, denies being SOB, chest pain, pressure, palpitations or difficulty with voiding. Patient is eager to be discharged to SNF. --Other chronic medical conditions as outlined in note. Refer to d/c plan below: -Case reviewed and discussed with Dr. Lew who is in agreement with current d/c plan. Case will be reviewed and discussed with PCP or auto emissions technician MD once the hospital grooving machine operator is able to reach him/her. Ispent a lengthy amount of time with the patient and/or family reviewing discharge instructions, medications, medication use. Patient to follow-up with PCP and specialty providers as scheduled on discharge. Patient being discharged in medically/hemodynamically stable cond. with instructions to return to the hospital if symptoms worsen or recur. This report was transcribed using voice recognition software. Every effort was made to ensure accuracy, however, inadvertently computerized carroting machine operator mistakes may be present. Significant Findings No qualifying data available. Services Consulted Consult to Dietitian Adult - Ordered -- 07/17/22 13:20:10 EDT Consult to Infectious Disease Physician - Ordered -- 07/13/22 11:46:00 EDT, LUE infected AVF, cellulitis, Consult and Co-manage Consult to Nephrology - Ordered -- 07/12/22 15:52:00 EDT, ESRD, Consult and Co-manage (more content not included)...[facility] CenterComment on above:Result Comment: Electronically Signed By: Nathalie HAAS\.br\Date and Time Signed: 07/19/22 17:35 EDT\.br\Electronically Co-Signed By: LOUANN FISH, Chandrakant P\.br\Date and Time Co-Signed: 07/19/2316:38 [id number] NoteEchocardiology Procedure Exam Date/Time Accession # Ordering Dr. Calzada Transthoracic 07/19/2022 16:30 EDT [id number] Nathalie HAAS Complete CPT code 03444 42249 Reason for Exam (Echo Transthoracic Complete) MRSA in AVF;Other (please specify) Report [facility] [address] [place] [address] Adult Echocardiogram Report Name: SETH MURPHY Study Date: 07/19/2022 03:59 PM BP: 101/54 mmHg Patient Location: [address] [place] [address] HR: 81 : 1955 Gender: Male Height: 71 in Age: 66 yrs Ethnicity: WHT Weight: 214 lb Reason For Study: Other (please specify) BSA: 2.2 m2 History: HTN,CAD,Palpitations,CHF Ordering Physician: Howard Performed By: Lorena Funez RDCS Interpretation Summary No comparison study is available. mild to moderate left ventricular hypertrophy. Ejection Fraction = 60-65%. The left ventricular wall motion is normal. Grade I diastolic dysfunction, (abnormal relaxation pattern). There is Trace mitral regurgitation. There is trace tricuspid regurgitation. Right ventricular systolic pressure is 30 mmHg. The aortic root is mildly dilated. There is a left pleural effusion present. No overt bacterial vegetation seen, however recommend transesophageal echocardiogram if clinically indicated for better evaluation of possible endocarditis. Results conveyed to Nathalie Santillan at 4:40 PM. Procedure A complete two-dimensional transthoracic echocardiogram was performed (2D, M- mode, spectral and color flow Doppler). Study quality is adequate. I WMSI = 1.00 % Normal = 100 Segments Size X - Cannot 2 - 1-2 small Interpret 1 - Normal Hypokinetic 3 - Akinetic 4 - Dyskinetic3-5 moderate Echocardiology Report 5 - Aneurysmal 6-14 large 15-16 diffuse Left Ventricle mild to moderate left ventricular hypertrophy. Ejection Fraction = 60-65%. The left ventricular wall motion is normal. Grade I diastolic dysfunction, (abnormal relaxation pattern). Left Atrium The left atrial size is normal. Right Atrium Right atrial size is normal. Right Ventricle The right ventricular systolic function is normal. Aortic Valve The aortic valve is trileaflet. Mitral Valve Mitral valve structure is normal. There is Trace mitral regurgitation. Tricuspid Valve Structurally normal tricuspid valve. There is trace tricuspid regurgitation. Right ventricular systolic pressure is 30 mmHg. Pulmonic Valve The pulmonic valve is normal. Arteries The aortic root is mildly dilated. Venous The inferior vena cava is normal in size, and collapses normally with respiration. Effusion There is no pericardial effusion. There is a left pleural effusion present. MMode/2D Measurements & Calculations IVSd: 1.5 cm LVIDd: 3.7 cm FS: 29.0 % Ao root diam: 3.9 cm LVIDs: 2.6 cm EDV(Teich): 56.8 ml Ao root area: 11.8 cm2 LVPWd: 1.5 cm ESV(Teich): 24.7 ml LA dimension: 3.8 cm EF(Teich): 56.6 % LVLd ap4: 9.7 cm EDV(MOD-sp2): 158.0 ml SV(MOD-sp4): 64.9 ml TAPSE: 2.6 cm EDV(MOD-sp4): 108.0 ml ESV(MOD-sp2): 45.5 ml LVLs ap4: 8.0 cm EF(MOD-sp2): 71.2 % ESV(MOD-sp4): 43.1 ml EF(MOD-sp4): 60.1 % EF (MOD-bp): 66.6 % LA Vol Index: 28.0 ml/m2 Doppler Measurements & Calculations MV E max gogo: 104.0 cm/sec MV dec time: 0.35 sec Ao V2 max: 103.2 cm/sec LV V1 max P.3 mmHg Echocardiology Report MV A max gogo: 134.5 cm/sec Ao max P.3 mmHg LV V1 max: 90.4 cm/sec MV E/A: 0.77 Lat Peak E' Gogo: 6.1 cm/sec E/E' Lat: 17.1 Med Peak E' Gogo: 6.9 cm/sec E/E' Med: 15.2 TR max gogo: 261.8 cm/sec RAP systole: 3.0 mmHg AV VR: 0.88 TR max P.4 mmHg RVSP(TR): 30.4 mmHg FINAL REPORT Dictated: 07/19/2022 3:59 pm Loco Menjivar MD Signed (Electronic Signature): 07/19/2022 4:41 pm Signed by: Loco Menjivar MD Transcribed by: BO Technologist: [facility]06-08-2023 Note CRM entered the room to discuss dc planning. PCP, DME and insurance discussed. Patient is alert andinvolved in plan of care. Contact information provided and whiteboard updated. Pt will transport via van, [facility] will cover cost per [facility]. Pt will receive 4wks of IV vanco at HD, HD to be notified. Pt's made aware of plan. No further needs. Ant dc today. CRM to follow.[facility] CenterComment on above:Result Comment: Electronically Signed By: Sarah Tena\Date and Time Signed: 07/19/22 10:50 [id number] NoteMicrobiology PROCEDURE: Tissue Culture [R1] SOURCE: Tissue BODY SITE: Arm L COLLECTED DATE/TIME: 07/16/2022 13:09 EDT RECEIVED DATE/TIME: 07/16/2022 14:18 EDT START DATE/TIME: 07/16/2022 14:19 EDT FREE TEXT SOURCE: Deep tissue culture Dorian FISH, Greg Alarcon MD, Greg Lopez FINAL REPORTS Final Report [] Verified Date/Time: 07/18/2022 11:19 EDT Scant growth of Methicillin-Resistant Staphylococcus aureus MRSA MRSA Result called to Peg Prado (3S) by [facility] and results read back for confirmation on 07/18/2022 11:19:05 STAINS Gram Stain Report [] Verified Date/Time: 07/17/2022 06:56 EDT No organisms seen. SUSCEPTIBILITY RESULTS LEGEND: S=Susceptible, N/R=Not Reported, Blank=Data not available, or drug not advisable or tested, I=Intermediate, ESBL=Extended spectrum beta-lactamase, R=Resistant, TFG=Thymidine-dependent strain, GRACE=Beta-lactamase positive, BRYAN=mcg/m;(mg/L), S*=Predicted susceptible interp, R*=Predicted resistant interp MRSA Antibiotic BRYAN Dilutn BRYAN Interp Amoxicillin/ >4/2 R* Clavulanate Ampicillin >8 R* Ampicillin/ <=8/4 R* Sulbactam Azithromycin >4 R Cefazolin <=8 R* Ceftaroline 1 S Ciprofloxacin >2 R Clindamycin <=0.25 S Daptomycin <=1 S Erythromycin >4 R Gentamicin <=4 S Inducible <=4/0.5 Negative Clindamycin Levofloxacin >4 R Linezolid <=2 S Nitrofurantoin <=32 Oxacillin >2 R Penicillin >8 R* Rifampin <=1 S Tetracycline <=4 S Trimethoprim/ >2/38 R Sulfa Vancomycin <=0.5 S Performing Locations R1: This test was performed at: [facility], [address] [place] [address], [id number] , [place], PembwxSouthview Medical CenterComment on above:Performed By: #### [id number], [id number], [id number] #### [facility] [address] [place] [address] [id number] NoteCRM entered the room to discuss dc planning. PCP, DME and insurance discussed. Patient is alert andinvolved in plan of care. Contact information provided and whiteboard updated. Pt states he doesnt r emember discussion about [facility]. He was planning on going home. Kyler at bedside as well. Discussion had about long tern ATX. Pending ID consult. Pt is also still very weak. Call to Dee Dee to discuss, , she is good with plan. wants CRM to ask if [facility] will transport to HD. ANt dc 07/19or 07/20. van transport.[facility] CenterComment on above:Result Comment: Electronically Signed By: Sarah Tena\Elodiabr\Date and Time Signed: 07/17/22 11:30 [id number] NoteCRM entered the room to discuss dc planning. PCP, DME and insurance discussed. Patient is alert andinvolved in plan of care. Contact information provided and whiteboard updated. Per PT pt rec SNF, pt agreeable to [facility], they have accepted. Pt will need 3MN stay. Plan to see vascular Saturday. Pt's friend will transport to HD. Ant dc 07/16. CRM to follow.[facility] CenterComment on above:Result Comment: Electronically Signed By: Sarah Tena\.br\Date and Time Signed: 07/14/22 13:10 [id number] NoteMicrobiology PROCEDURE: Wound Culture [R1] SOURCE: Wound BODY SITE: Arm L COLLECTED DATE/TIME: 07/12/2022 16:45 EDT RECEIVED DATE/TIME: 07/12/2022 16:53 EDT START DATE/TIME: 07/12/2022 16:53 EDT FREE TEXT SOURCE: [facility] [place]athalie [facility], Nathalie FINAL REPORTS Final Report [] Verified Date/Time: 07/14/2022 11:20 EDT 2+ Methicillin-Resistant Staphylococcus aureus MRSA MRSA Result called to Natalie Foreman (3S) by [facility] and results read back for confirmation on 07/14/2022 11:19:47 STAINS Gram Stain Report [] Verified Date/Time: 07/13/2022 11:55 EDT 2+ White Blood Cells 2+ Gram Positive Cocci SUSCEPTIBILITY RESULTS LEGEND: S=Susceptible, N/R=Not Reported, Blank=Data not available, or drug not advisable or tested, I=Intermediate, ESBL=Extended spectrum beta-lactamase, R=Resistant, TFG=Thymidine-dependent strain, GRACE=Beta-lactamase positive, BRYAN=mcg/m;(mg/L), S*=Predicted susceptible interp, R*=Predicted resistant interp MRSA Antibiotic BRYAN Dilutn BRYAN Interp Amoxicillin/ >4/2 R* Clavulanate Ampicillin >8 R* Ampicillin/ 16/8 R* Sulbactam Azithromycin >4 R Cefazolin >16 R* Ceftaroline 1 S Ciprofloxacin >2 R Clindamycin <=0.25 S Daptomycin <=1 S Erythromycin >4 R Gentamicin <=4 S Inducible <=4/0.5 Negative Clindamycin Levofloxacin >4 R Linezolid <=2 S Nitrofurantoin <=32 Oxacillin >2 R Penicillin >8 R* Rifampin <=1 S Tetracycline <=4 S Trimethoprim/ >2/38 R Sulfa Vancomycin 1 S Performing Locations R1: This test was performed at: [facility], [address] [place] [address], [id number]- , [place], HdhcsjSouthview Medical CenterComment on above:Performed By: #### [id number], [id number], [id number] #### [facility] [address] [place] [address] [id number] NotePT Evaluation done this date. Pt. with on AM-PAC this date. Very weak and fatigued. Difficulty standing upright to use FWW safely. Recommend SNF.[facility]06-01-[facility] NoteBasic Information Admit Date/Time:07/12/2022 14:01 Chief Complaint r/o infection of fistula History of Present Illness 86-year-old male with PMH of CAD, [place], chronic systolic heart failure, HTN, HLD, T2IDDM, peripheral neuropathy, ESRD on HD, hypothyroidism, b/l LE venous insufficiency, venous stasis ulcer?chronic. -Patient presented to [facility] as a direct admit at the request of Dr. Alarcon vascular services secondary to left AV fistula infection status post thrombosed left brachiocephalic AV fistula. Left permacath HD catheter intact. -Patient states that he has had ongoing left upper extremity swelling and redness to the AV fistulasite x3 weeks, states that he was placed on Keflex on 07/09 in addition to IV antibiotic of unknown name on HD days without improvement. Patient states that he has noted creamy white to yellow purulent drainage from the both access sites. Patient also has noted right heel venous stasis ulcer she states is 1-3 months old and undergoing wound care. Patient denies fever, chills, cough, sputum production, known COVID exposure, chest pain, pressure, palpitations, N/V/D, abdominal pain or change in bowel or bladder habits. Patient admitted to the hospitalist team with consultation to vascular team. Review of Systems Constitutional: Negative Eye: Negative. Ear/Nose/Mouth/Throat: Negative. Respiratory: Negative Cardiovascular: Negative. Gastrointestinal: Denies abd pain. Passing flatus. Last bowel movement: 07/12 Genitourinary: Negative. Hematology/Lymphatics: Negative. Endocrine: Negative. Immunologic: Negative Musculoskeletal: Negative. Integumentary: LUE pain, erythremia, edema Neurologic: Alert and oriented X4. Psychiatric: Negative. Additional ROS info: Except as noted in the above Review of Systems and in the History of Present Illness all other systems have been reviewed and are negative or noncontributory Scoring Moss Fall Risk Score: 85 (07/12/22) Detailed Depression Screen Score: 0 (07/12/22) Total Depression Screen Score: 0 (07/12/22) Physical Exam Vitals & Measurements T: 36.9 ?C(Oral) TMIN: 36.9 ?C(Oral) TMAX: 37.0 ?C(Oral) HR: 83(Peripheral) RR: 16 BP: 112/66 SpO2:97% HT: 180.34 cm WT: 93.5 kg General: Calm, able to communicate needs, Head: Normocephalic/atraumatic Eyes: Pupils equal, round. Conjunctivae and sclerae normal. HEENT: Mucous membrane moist. Tongue normal Neck: Trachea midline, neck supple, Chest: No chest wall deformity, no chest wall tenderness Lungs: CTA sanders Cardio: Normal rate, apical is regular, no edema. Pulses: Normal capillary refill Abdomen: Soft, non-distended, non-tender, normal BS Musculoskeletal: No deformity or scoliosis noted. Integumentary: Warm, dry, L chest permacath, LUE fistula site is red, erythemic, indurated, 2 open sites noted with creamy white drainage from distal open area, site is mildly warm to touch, tender to palpation, + radial pulse Extremity: No clubbing, Neurologic: Alert, oriented x 4, follows commands, Mental status: Pleasant & cooperative, approp. affect, Lab Results Glucose Lvl: 203 mg/dL High (07/12/22 16:34:00) BUN: 26 mg/dL High (07/12/22 16:34:00) Creatinine: 7.6 mg/dL Critical (07/12/22 16:34:00) eGFR: 7 mL/min/1.73 m2 Low (07/12/22:34:) BUN/Creat Ratio: 3 Low (07/12/22 16:34:00) Sodium Lvl: 134 mmol/L Low (07/12/22 16:34:00) Potassium Lvl: 4.2 mmol/L (07/12/22:34:) Chloride: 98 mmol/L Low (07/12/22:34:00) CO2: 25 mmol/L (07/12/22:34:) AGAP: 15 mEq/L (07/12/22::) Calcium Lvl: 9.2 mg/dL (07/12/22:34:) Glucose Cap: 191 mg/dL High (07/12/22 16:44:00) POC Device SN: [id number] (07/12/22 16:44:00) POC User ID: [id number] (07/12/22 16:44:00) POC Username: MIKEY CUEVAS (07/12/22 16:44:00) Diagnostic Results No qualifying data available. Assessment/Plan 1. Cellulitis of arm (L03.119: Cellulitis of unspecified part of limb) LUE 2/2 open wounds - pt. failed outpt. keflex -IV vanco/zosyn - 07/12 -LUE DUS - pending -Wound cx - pending -Bl. cx - pending -Pain mgt., supportive care -Elevate, outline area 2. AV fistula infection (T82.7XXA: Infection and inflammatory reaction due to other cardiac and vascular devices, implants and grafts, initial encounter) Consult vascular: (Dr. Alarcon aware of pt. as he was seen in clinic today) - plan for possible OR on07/16 - will need NPO order placed on 07/15 -LUE US: pending -See above 3. Coronary artery disease (I25.10: Atherosclerotic heart disease of [place] coronary artery withoutangina pectoris) -Aspirin, atorvastatin, 4. Chronic systolic heart failure (I50.22: Chronic systolic (congestive) heart failure) Stable -Fluid mgt. per HD 5. Insulin dependent type 2 diabetes mellitus (E11.9: Type 2 diabetes mellitus without complications) Accuchecks AC/HS w/ SSI prn -Home regimen: Insulin 70/30 14u HS -Decrease insulin 70/30 to 7u HS - uptitrate as tolerated -Hypoglycemic p (more content not included)...[facility] CenterComment on above:Result Comment: Electronically Signed By: Nathalie HAAS\.br\Date and Time Signed: 07/12/22 17:08 EDT\.br\Electronically Co-Signed By: Michael FISH, Fuentes Lemons\.br\Date and Time Co-Signed: 07/12/22 17:46 EDT 07-09-2022 Hospital Discharge instructions Patient Education 07/09/2022 19:31:06 [...] Follow these instructions at home: Medicines Take sxjs-tmi-mfdazrw and prescription medicines only as told by [...] provider. Document Revised: 07/24/2021 Document Reviewed: 07/24/2021 [employer] Education Patient Education 2022 [employer]. Follow Up Care 07/09/2022 17:23:13 With:Greg Alarcon Address: [address] [place] [address]- Business (1) When:07/12/2022 18:59:06 Comments:Follow-up with Dr. Alarcon for further evaluation of your fistula. With:Nav Alejo Address: [address] [facility] [place] [address]- Business (1) When:07/12/2022 18:58:50 Comments:Follow-up with your primary care provider in 3 to 5 days. If symptoms worsen, do not improve, or new symptoms arise please report back to emergency department for further evaluation. [facility]05-28-2023 NoteAdmission and Discharge Information Admitting Physician - Greg Alarcon MD Consulting Physician - Jatin Fournier MD Referring Physician - Greg Alarcon MD Admitting Diagnoses: Discharge Diagnoses 1. ESRD on dialysis, 07/02/2022 2. Diabetes, 07/02/2022 3. Hypertension, 07/02/2022 4. Hyperlipidemia, 07/02/2022 5. Coronary artery disease, 07/02/2022 6. Hypothyroid, 07/02/2022 7. No contraindication to deep vein thrombosis (DVT) prophylaxis, 07/02/2022 Procedure History Insertion of hemodialysis catheter (07/02/2022), Fistulogram with contrast (03/15/2022), Fluoroscopic fistulogram with contrast (11/02/2021), Fistulogram with contrast (08/04/2020), Removal of catheter (07/07/2020), MULTI SLIDE MACHINE TENDER (06/16/2020), AV - Creation of arteriovenous fistula (03/31/2020), AV fistula recirculation (08/06/2019), Abdominal hernia, Cholecystectomy, H/O: tracheostomy, Placement of stent in cardiac conduit. Hospital Course Pt is a 66 M admitted after HD cath placement, for non malfunctioning fistula. Pt was seen by nephrology had HD x 1. Pt doing well, being discharged home in improved condition to follow up with PCP and his outpatient biology specimen technician. Physical Exam General: alert, no acute distress ENMT oral mucosa moist, no pharyngeal erythema or exudate Cardiovascular: regular rate and rhythm, normal peripheral perfusion Respiratory: Lungs CTA, respirations non labored Abdomen: soft, NTND, +BS Skin: warm, dry, intact Extremities: no deformity, no trauma Neurological: LOC appropriate for age, CN II-XII intact, motor strength equal & normal bilaterally, sensation equal & normal bilaterally, speech normal Laboratory Results Automated Diff (07/03/2022) Neutro Auto - 72.9 % Lymph Auto - 9.1 % Stokes Auto - 16.7 % Eos Auto - 1.0 % Basophil Auto - 0.3 % Neutro Absolute - 5.2 E9/L Lymph Absolute - 0.6 E9/L Stokes Absolute - 1.2 E9/L Eos Absolute - 0.1 E9/L Basophil Absolute - 0.0 E9/L BMP (07/03/2022) Glucose Lvl - 226 mg/dL BUN - 88 mg/dL Creatinine - 17.8 mg/dL BUN/Creat Ratio - 5 Sodium Lvl - 135 mmol/L Potassium Lvl - 4.8 mmol/L Chloride - 98 mmol/L CO2 - 23 mmol/L AGAP - 19 mEq/L Calcium Lvl - 8.3 mg/dL Capillary Glucose POC (07/03/2022) Glucose Cap - 146 mg/dL POC Device SN - [id number] POC User ID - [id number] POC Username - [email or web address] LING CBC w/ Auto Diff (07/03/2022) WBC - 7.1 E9/L RBC - 3.0 E12/L Hgb - 9.2 gm/dL Hct - 26.8 % MCV - 88.5 fL MCH - 30.4 pg MCHC - 34.3 gm/dL RDW - 17.0 % Platelet - 155.0 E9/L MPV - 8.4 fL eGFR (07/03/2022) eGFR - 3 mL/min/1.73 m2 Tests Performed Automated Diff BMP Capillary Glucose POC CBC w/ Auto Diff eGFR Discharge Plan Discharge Disposition Discharge To, Anticipated - Home independently Discharged to - Home independently Discharge Medication List Prescriptions No active prescription medications Home Aranesp 25 mcg/0.42 mL Injection aspirin 81 mg Chew Tab, 81 mg= 1 tab(s), Chewed, Daily atorvastatin 40 mg Tab, 40 mg= 1 tab(s), Oral, Daily Celebrate Multivitamin, See Instructions doxazosin 1 mg oral tablet, 1 mg= 1 tab(s), Oral, Daily Humalog KwikPen, See Instructions hydrALAZINE 50 mg Tab, 50 mg= 1 tab(s), Oral, q8hr midodrine 5 mg Tab Novolin 70/30, See Instructions Novolin R polyethylene glycol 3350, 17 gm, Oral, Daily, PRN, Not taking Synthroid 100 mcg Tab, 100 mcg= 1 tab(s), Oral, Daily Vitamin B Complex oral capsule, 1 cap(s), Oral, Daily Follow-up With When Contact Information Greg Alarcon 08/06/2022 10:00 AM EDT [address] [place] [address]- Business (1) Additional Instructions: Nav Alejo 07/13/2022 11:15 AM EDT [address] [place] [address]- Business (1) Additional Instructions: Patient Education CV - Cardiovascular Discharge Instructions (CUSTOM)[facility] Comment on above:Result Comment: Electronically Signed By: DAVONTE FISH, Pedro\.br\Date and Time Signed: 07/08/22 09:40 [id number] Note [id number]:127[facility] 07-[facility] NoteBasic Information Accompanied by: No Accompaniment Source of History: Self Present at Bedside: none Referral Source: Recovery room History Limitation: None Chief Complaint need for HD History of Present Illness Pt is a 66 M PMH DM, HTN, HLD, ESRD on HD, hypothyroid admitted after outpatient placement of HD cath by vascular surgery. Pt had a thrombosed fistula. Pt has not had HD since 06/27. Pt denies any chest pain or sob. no nausea or vomiting. no abdominal pain, diarrhea, constipation. no other complaints to me. Review of Systems Additional ROS info: Except as noted in the above Review of Systems and in the History of Present Illness all other systems have been reviewed and are negative or noncontributory. Scoring Moss Fall Risk Score: 35 (07/02/22) Physical Exam Vitals & Measurements HT: 178 cm WT: 94 kg General: alert, no acute distress Skin: warm, dry Head: no trauma, normocephalic Neck: Trachea midline, no adenopathy, no tenderness Eye: normal conjunctiva, sclera clear ENMT: , oral mucosa moist, no pharyngeal erythema or exudate Cardiovascular: regular rate and rhythm, normal peripheral perfusion left chest HD cath Respiratory: Lungs CTA, respirations non labored Chest wall: no deformity. Gastrointestinal: soft, non distended, no tenderness, no guarding. Back: No tenderness, Normal ROM, Normal alignment. Extremities: no deformity, no trauma Neurological: oriented x 4, LOC appropriate for age, CN II-XII intact, motor strength equal & normal bilaterally, sensation equal & normal bilaterally, speech normal Psychiatric: cooperative, affect appropriate for age, normal judgement, normal psychiatric thoughts. Lab Results Glucose Lvl: 229 mg/dL High (07/02/22 12:57:00) BUN: 78 mg/dL High (07/02/22 12:57:00) Creatinine: 16.8 mg/dL Critical (07/02/22 12:57:00) eGFR: 3 mL/min/1.73 m2 Low (07/02/22 12:57:00) BUN/Creat Ratio: 5 Low (07/02/22 12:57:00) Sodium Lvl: 134 mmol/L Low (07/02/22 12:57:00) Potassium Lvl: 4.9 mmol/L (07/02/22 12:57:00) Chloride: 96 mmol/L Low (07/02/22 12:57:00) CO2: 21 mmol/L (07/02/22 12:57:00) AGAP: 22 mEq/L High (07/02/22 12:57:00) Calcium Lvl: 8.9 mg/dL (07/02/22 12:57:00) Assessment/Plan 1. ESRD on dialysis (N18.6: End stage renal disease) - has not had HD since last Saturday, d/w nephrology reviewed labs, potassium stable, no acidosis,no evidence of fluid overload, as per nephrology will do HD tomorrow - nephrology consulted 2. Diabetes (E11.9: Type 2 diabetes mellitus without complications) - stable, continue 70/30 insulin subcutaneous - start SSI ACHS subcutaneous 3. Hypertension (I10: Essential (primary) hypertension) - stable, continue PO hydralazine, doxazosin 4. Hyperlipidemia (E78.5: Hyperlipidemia, unspecified) - stable, continue PO atorvastatin 5. Coronary artery disease (I25.10: Atherosclerotic heart disease of [place] coronary artery withoutangina pectoris) - stable, continue PO ASA, statin 6. Hypothyroid (E03.9: Hypothyroidism, unspecified) - stable, continue PO synthroid 7. No contraindication to deep vein thrombosis (DVT) prophylaxis (Z78.9: Other specified health status) - ordered SCDs, start heparin subcutaneous bid pt will be admitted for observation possible discharge in next 24 hours Orders: acetaminophen, 650 mg = 2 tab(s), Tab, Oral, q6hr PRN Pain, Routine, Start date 07/02/22 16:43:00 EDT, 07/02/22 16:43:00 EDT glucose, 50 mL, Soln-IV, IV Push, Once PRN Blood glucose, Routine, Start date 07/02/22 16:44:00 EDT heparin, 5,000 unit(s) = 1 mL, Injection, SubCutaneous, BID for 30 day(s), Stop date 08/01/22 20:59:00 EDT, Routine, Start date 07/02/22 21:00:00 EDT, 07/02/22 16:43:00 EDT insulin lispro, 0-10 Units, Injection-Insulin, SubCutaneous, QIDACHS, Routine, Start date 07/02/22 21:00:00 EDT ondansetron, 4 mg = 2 mL, Injection, IV Push, q6hr PRN Nausea, Routine, Start date 07/02/22 16:43:00 EDT, 07/02/22 16:43:00 EDT Ambulate with Assistance Basic Metabolic Panel Below the Knee Intermittent Pneumatic Compression Device Cardiac Monitoring CBC w/ Auto Diff Consult to Nephrology Evaluate Need For Continued Telemetry Hypoglycemia Protocol Responsive Patient Hypoglycemia Protocol Unresponsive Patient Incentive Spirometry Intake and Output Notify Provider Vital Signs Notify Provider Vital Signs Oxygen Protocol Place in Status Pulse Oximetry Renal Diet Routine Capillary Glucose POC Vital Signs Weight Problem List/Past Medical History Ongoing Acute non-ST segment elevation myocardial infarction Acute systolic heart failure Coronary arteriosclerosis Coronary artery disease Diabetes Diabetes mellitus Dyspnea Dysuria Edema of lower extremity Electrocardiogram abnormal ESRD (end stage renal disease) on dialysis Essential hypertension Fatigue Hyperlipidemia Hypertension Hypothyroid Left ventricular hypertrophy Neuropathy due to diabetes mellitus Pseudophakia Thr (more content not included)...[facility] Center[facility] above: Result Comment: Electronically Signed By: DAVONTE FISH, Pedro\.br\Date and Time Signed: 07/02/22 17:10 [id number] Hospital Discharge instructions Patient Education 03/15/2022 14:06:07 [...] relax (sedative) during your procedure. Medicines Take fdlp-fov-yjqthhh and prescription medicines only as told by your health care provider. Puncture site care Follow instructions from your health care provider about how to take care of the site where catheters were inserted. Make sure you: ?Wash your hands with soap and water before you change your bandage (dressing). If soap and water are not available, use hand country manager. ?Change your dressing as told by your [...] told by your health care provider. Take zrdb-bid-efjvkkm and prescription medicines only as told by [...] 06/14/2014 Document Revised: 02/28/2018 Document Reviewed: 02/28/2018 [employer] Education Patient Education 2020 Clear Standards Follow Up Care 03/15/2022 11:30:19 With:Greg Alarcon Address: [address] [place], [place] [address] [address] [facility] (1) When: Unknown Comments:as needed [facility]02-02-2023 Evaluation + Plan noteExtracted from: Title:Procedure Note Heart & Vascular Author:Candice walker MD, Greg Lopez Date:03/15/22 Ordered: atropine, 1 mg = [...] Oxygen Protocol Patient Education Saline Lock Insert [facility]09-22-2022 Hospital Discharge instructions Patient Education 11/02/2021 13:11:32 [...] relax (sedative) during your procedure. Medicines Take pywk-ddn-yymlexl and prescription medicines only as told by your health care provider. Puncture site care Follow instructions from your health care provider about how to take care of the site where catheters were inserted. Make sure you: ?Wash your hands with soap and water before you change your bandage (dressing). If soap and water are not available, use hand country manager. ?Change your dressing as told by your [...] told by your health care provider. Take [id number] and prescription medicines only as told by [...] 06/14/2014 Document Revised: 02/28/2018 Document Reviewed: 02/28/2018 [employer] Patient Education 2020 [employer]. Follow Up Care 10/27/2021 08:22:09 With:Greg Alarcon Address: [address] [place] [phone] Business (1) When: Unknown Comments:Call for followup appointment if needed With:Nav Alejo Address: [address] [place] [phone] Business (1) When: Unknown [facility] No data available for this section [facility] Future Appointments Appointment Date:08/06/2022 10:00:00 AM Scheduled Provider:Dorian FISH, Greg Lopez Location[facility] Appointment Type:[facility] (FT) [facility] Future Appointments Appointment Date:07/16/2022 12:00:00 PM Scheduled Provider: Location:[facility] Appointment Type:Surgery FT [facility] Future Appointments Appointment Date:06/18/2023 01:00:00 PM Scheduled Provider: Location:.[facility] Appointment Type:US Duplex Procedures (FT) Future Scheduled Tests Radiology* US PVR Lower EXT Complete Bilat 06/18/23 [facility]* Diagnosis Arteriosclerotic heart disease Coronary atherosclerosis of unspecified type of vessel, [place] or graft S/P PTCA (percutaneous transluminal coronary angioplasty) Postsurgical percutaneous transluminal coronary angioplasty status ESRD (end stage renal disease) on dialysis ([facility]) End stage renal disease Diabetes mellitus of other type without complication, unspecified whether chcf insulin use ([facility]) Essential hypertension Unspecified essential hypertension Hyperlipidemia, unspecified hyperlipidemia type Never smoked any substance documented in this encounter [facility] Work Phone: Evaluation note* Diagnosis Onset Date Resolution Status Anemia of renal disease acut e Benign hypertension with end-stage renal disease acute Bilateral pressure ulcer of feet acute Cellulitis of left foot acut e ESRD (end stage renal disease) acute Foot ulcer, left acute Osteomyelitis acute Osteomyelitis of foot, left, acute acute Secondary hyperparathyroidism acute Septic arthritis of left foot acute Type 2 diabetes mellitus wit h diabetic chronic kidney disease acute Ulcer of right foot acute Wound infection acute Diabetes mellitus chronic Obesity chronic Hyperkalemia resolved Foot ulcer, left acute Osteomyelitis of foot, left, acute acute Receiving intravenous antibi otic treatment as outpatient acute Septic arthritis of left foot acute Diabetes mellitus [facility] Work Phone: Evaluation note* Diagnosis Onset Date Resolution Status Anemia of renal disease acut e Benign hypertension with end-stage renal disease acute Bilateral pressure ulcer of feet acute Cellulitis of left foot acut e ESRD (end stage renal disease) acute Foot ulcer, left acute Osteomyelitis acute Osteomyelitis of foot, left, acute acute Secondary hyperparathyroidism acute Septic arthritis of left foot acute Type 2 diabetes mellitus wit h diabetic chronic kidney disease acute Ulcer of right foot acute Wound infection acute Diabetes mellitus chronic Obesity chronic Hyperkalemia resolved Foot ulcer, left acute Osteomyelitis of foot, left, acute acute Receiving intravenous antibi otic treatment as outpatient acute Septic arthritis of left foot acute Diabetes mellitus chronic Anemia of renal disease acut e Benign hypertension with end-stage renal disease acute Cellulitis of left foot acut e Foot ulcer, left acute Osteomyelitis of foot, left, acute acute Type 2 diabetes mellitus with hyperglycemia acute [facility] Work Phone: Evaluation note* Diagnosis Onset Date Resolution Status Anemia of renal disease acut e Benign hypertension with end-stage renal disease acute ESRD (end stage renal disease) acute Osteomyelitis acute Secondary hyperparathyroidism acute Type 2 diabetes mellitus wit h diabetic chronic kidney disease acute Type 2 diabetes mellitus with hyperglycemia acute Anemia acute Anemia of renal disease acut e Benign hypertension with end-stage renal disease acute Cellulitis acute Deep vein thrombosis of right lower extremity acute Diabetes mellitus with diabetic neuropathy acute [id number] acute ESRD (end stage renal disease) acute Fever acute Osteomyelitis acute Peripheral arterial disease acute PVD (peripheral vascular disease) acute Secondary hyperparathyroidism acute Septic shock acute Severe sepsis acute Type 2 diabetes mellitus wit h diabetic chronic kidney disease acute Ulcer of foot acute Ventricular bigeminy acute Diabetes mellitus chronic [facility] Work Phone: History and physical note Author Gabriel Gould [facility] June 21, 2023 10:20pm Note Date/Time June 21, 2023 9:30p [facility] ENTER [address] [place] [address] Hospitalist H&P Signed Patient: Seth Murphy MR#: [id number] : 1955 Acct:[id number] Age/Sex: 67 / M Adm Date: 4 Loc: Room: [address] [place] [address] Type: ADM IN Attending Dr: Gabriel Gould DO Copies to: MD Gabriel Dave, DO~ HPI DATE OF EXAMINATION: 06/21/23 CHIEF COMPLAINT: left foot infection HISTORY OF PRESENT ILLNESS: Mr Murphy is a 67-year-old male with a past medical history of poorly controlledtype 2 diabetes, hypertension, coronary artery disease, ESRD on dialysis Saturday, and asthma who presents to hospital a chief complaint of left foot infection. The patient was previous admitted to our hospital on April 09 for the same infection, at that point time he was seen by vascular surgery, infectious disease, and podiatry. Vascular surgery stated the patient had greatcirculation and there is no further intervention needed for blood flow. Podiatry and infectious disease recommended amputation however the patient optedfor 6 weeks of IV antibiotics. According to the follow-up notes after dischargeand the patient, he states the wound was doing quite well, he recently saw infectious disease in the office on May 08 at that point in time there is no drainage, patient states it was doing quite well the office visit note makes it seem as though it was relatively unchanged from the time of discharge. He had 2more weeks left of IV ceftriaxone and the patient endorses finishing the ceftriaxone for 6 weeks. He presents to dialysis today and states there is some pus and liquid of serosanguineous fluid draining from the wound which is a relatively new development over the past couple of days and his biology specimen technician subsequently told him to come to the hospital. Chest x-ray performed emergency room shows worsening osteomyelitis of the left great toe involving the sesamoids, distal first metatarsal, and proximal phalanx of the great toe. She received a dose ofIV vancomycin and was subsequent admitted to the hospital. [facility] Medical History (Updated 05/09/23 @ 13:26 by Alfredo Acosta MD) Vitamin D deficiency Venous stasis Umbilical hernia Systolic heart failure Hypothyroidism AV fistula infection Arteriovenous fistula Cataract (lens) fragments in eye following cataract surgery, bilateral Proteus infection Foot ulcer, left Requires assistance with activities of daily living (ADL) Limited mobility Chronic kidney disease (CKD) Left ventricular dysfunction Non-ST elevation myocardial infarction (NSTEMI) in recovery phase Acute systolic CHF (congestive heart failure), NYHA class 3 Chronic venous insufficiency Asthma Hyperlipidemia Hypertension Osteoarthritis CAD (coronary artery disease) Diabetes End stage renal disease on dialysis Surgical History (Updated 05/09/23 @ 13:19 by Jessica Brown LPN) H/O heart artery stent History of tonsillectomy and adenoidectomy Hx of cholecystectomy Family History Mother Diabetes Heart disease Father Diabetes Father 74 yrs Diabetes Heart disease Mother Diabetes Heart disease 92 yrs Social History Smoking Status: Never smoker Substance Use Type: None Meds Medications and Allergies Allergies ticagrelor [From Brilinta] Allergy (Unknown, Verified 06/21/23 18:26) Headache chlorhexidine Allergy (Verified 06/21/23 18:26) Unknown Reaction coban Allergy (Uncoded 05/09/23 13:07) Unknown Reaction Home Medications insulin lispro 100 unit/mL subcutaneous pen See Rx Instructions .Route .COMPLEX 04/15/18 [History Confirmed 06/21/23] levothyroxine 50 mcg tablet 100 mcg PO DAILY 04/15/18 [History Confirmed 06/21/23] atorvastatin 40 mg tablet 40 mg PO QPM #0 tabs 04/17/18 [Rx Confirmed 06/21/23] acetaminophen 325 mg tablet 650 mg PO Q6HR PRN fever or pain 04/09/23 [History Confirmed 06/21/23] calcium carbonate 750 mg PO TID 04/09/23 [History Confirmed 06/21/23] dextrose 6 gram/15 mL oral gel 25 g PO Q15M PRN hypoglycemia 04/09/23 [History Confirmed 06/21/23] insulin NPH-regular 70-30 U-100 insulin 100 unit/mL subcutaneous pen (Humulin 70/30 U-100 KwikPen) 60 unit subcut QHS 04/09/23 [History Confirmed 06/21/23] liothyronine 5 mcg tablet 5 mcg PO QAM 04/09/23 [History Confirmed 06/21/23] midodrine 10 mg tablet 10 mg PO .COMPLEX 04/09/23 [History Confirmed 06/21/23] multivitamin-ferrous fumarate-folic acid 18 mg-400 mcg tablet (Centrum Complete)1 tab PO DAILY 04/09/23 [History Confirmed 06/21/23] oxycodone-acetaminophen 5 mg-325 mg tablet (Percocet) 1 tab PO Q6HR PRN pain 04/09/23 [History Confirmed 06/21/23] polyethylene glycol 3350 17 gram oral powder packet (Miralax) 17 g PO DAILY PRN constipation 04/09/23 [History Confirmed 06/21/23] vitamin B complex 1 tab PO DAILY 04/09/23 [History Confirmed 06/21/23] Exam Physical Exam Vital Signs: Temp Pulse Resp BP Pulse Ox O2 Del Method 98.3 F 64 18 118/73 97 Room Air 06/21/23 18:28 06/21/23 18:28 06/21/23 18:28 06/21/23 18:28 06/21/23 18:28 06/21/23 18:28 Narrative: General: Awake alert, no acute distress HEENT: head atraumatic, normocephalic, moist mucous membranes Neck: supple no masses, no lymphadenopathy CVS: regular rate and rhythm, no murmurs or gallops Respiratory: clear to auscultation bilaterally, no wheezing or crackles, symmetric expansion GI: soft, nondistended, nontender, positive bowel sounds with no organomegaly Extremity: moves all extremities, no restrictions of movements, no calf tenderness, no edema, remains with lack of sensation in the bilateral feet, he has an open wound on the medial aspect of his left foot over the first metatarsal, it measures roughly 2 cm in diameter, there is granulation tissue protruding from the center of it, there is some pus almost circumferential around the wound. AV fistula in his right forearm is currently bandaged from being used today. Neuro: AOx3, CN II-VII intact. Moves all extremities in all planes of motion. Skin: dry, intact no rashes or lesions Results - Hospitalist H&P Lab Results Labs: Laboratory Last Values Corrected WBC 7.3 X10E3/uL (4.1-10.5) 06/21/23 19:35 Uncorrected WBC Count 7.3 x10E3/uL (4.1-10.5) 06/21/23 19:35 RBC 3.83 X10E6/uL (3.90-5.60) L 06/21/23 19:35 Hgb 11.2 g/dL (13.0-17.0) L 06/21/23 19:35 Hct 33.5 % (38.8-50.0) L 06/21/23 19:35 MCV 87.4 fl (83.5-101) 06/21/23 19:35 MCH 29.3 pg (27.5-35.2) 06/21/23 19:35 MCHC 33.5 g/dL (32.5-35.6) 06/21/23 19:35 RDW 15.3 % (12.0-14.8) H 06/21/23 19:35 Plt Count 311 x10E3/uL (150-450) 06/21/23 19:35 MPV 7.4 fl (6.6-10.1) 06/21/23 19:35 Neut % (Auto) 74.6 % (.) 06/21/23 19:35 Lymph % (Auto) 7.5 % (.) 06/21/23 19:35 Stokes % (Auto) 16.2 % (.) 06/21/23 19:35 Eos % (Auto) 1.1 % (.) 06/21/23 19:35 Baso % (Auto) 0.6 % (.) 06/21/23 19:35 Nucleat RBC Rel Count 0.1 /100 WBC (0-0.5) 06/21/23 19:35 Neut # (Auto) 5.4 x10E3/uL (1.8-7.7) 06/21/23 19:35 Lymph # (Auto) 0.5 x10E3/uL (1.00-4.8) L 06/21/23 19:35 Stokes # (Auto) 1.2 x10E3/uL (0.0-0.8) H 06/21/23 19:35 Eos # (Auto) 0.1 x10E3/uL (0.0-0.45) 06/21/23 19:35 Baso # (Auto) 0.0 x10E3/uL (0.0-0.2) 06/21/23 19:35 Monocyte Dist Width 24.17 % (0.00-20.00) H 06/21/23 19:35 ESR 97 mm/hr (0-19) H 06/21/23 19:35 PHA Creatinine Clear 18.34 06/21/23 19:35 Sodium 132 mmol/L (136-145) L 06/21/23 19:35 Potassium 4.0 mmol/L (3.5-5.1) 06/21/23 19:35 Chloride 92 mmol/L (98-107) L 06/21/23 19:35 Carbon Dioxide 30.6 mmol/L (21.0-31.0) 06/21/23 19:35 Anion Gap 13.4 mEq/L (6.0-15.0) 06/21/23 19:35 BUN 13 mg/dL (7-25) 06/21/23 19:35 Creatinine 4.47 mg/dL (0.70-1.30) H 06/21/23 19:35 Est GFR (CKD-EPI) 13.678 mL/Min 06/21/23 19:35 Glucose 178 mg/dL (70-100) H 06/21/23 19:35 Lactic Acid 2.0 mmol/L (0.5-2.2) H* 06/21/23 19:35 Calcium 9.4 mg/dL (8.6-10.3) 06/21/23 19:35 Total Bilirubin 1.0 mg/dl (0.3-1.0) 06/21/23 19:35 AST 35 U/L (13-39) 06/21/23 19:35 ALT 21 U/L (7-52) 06/21/23 19:35 Alkaline Phosphatase 64 U/L (34-104) 06/21/23 19:35 C-Reactive Prot, Quant 25.6 mg/dL (0.0-0.5) H 06/21/23 19:35 Total Protein 8.3 gm/dL (6.4-8.9) 06/21/23 19:35 Albumin 3.3 gm/dL (3.5-5.7) L 06/21/23 19:35 Globulin 5.0 gm/dL 06/21/23 19:35 Albumin/Globulin Ratio 0.7 06/21/23 19:35 Assessment & Plan Assessment/Plan (1) Osteomyelitis of foot, left, acute: Plan: ?Admit to 3 tower as inpatient ? Patient's white count is normal 7.3 though his CRP is elevated at 25, ESR is 97. ? Foot x-ray shows worsening osteomyelitis when compared to prior studies ? Blood cultures obtained ? He received 1 dose of IV vancomycin in the emergency room ? Continue ceftriaxone 2 g every 24 hours ? Infectious disease consulted ? Podiatry consulted ? I did have a discussion with the patient regarding continue with IV antibiotics or possibly medication, at this point in time patient is quite apprehensive about amputation and states he would like to continue with IV antibiotics. (2) Cellulitis of left foot: Plan: See above (3) Foot ulcer, left: Plan: See above (4) Anemia of renal disease: Plan: Stable, patient is actually above his baseline right now (5) ESRD (end stage renal disease): Plan: ? Nephrology consulted, his dialysis days are Saturday through a right AV fistula (6) Type 2 diabetes mellitus with hyperglycemia: Plan: ? His home dose of 7030 will be held while he is admitted and I will transition him to 42 units long-acting glargine nightly and 14 units aspart 3 times daily AC with 2 sliding scale ? His hemoglobin A1c in March was 9.8. Plan ? DVT prophylaxis addressed ? ADA diet ? Full code IP vs OBS Justification Based on differential dx, clinical care plan, and risk of adverse events, if untreated, in my clinical judgement this patient requires an acute care setting as: INPATIENT because of an expectation of an over 2 midnight stay. Estimated length of stay (# of days): 3 Documented By: Gabriel Gould DO 06/21/232127 Signed By: <Electronically signed by Gabriel Gould DO> 06/21/232219 [facility] Work Phone: History general Narrative - Reported* [...] LEG 2010 Hospitalization History Heart attack 04-16-18 [facility] Other Hospital Discharge instructions No data available for this section [facility] No data available for this section [facility] (narrative)* Consultation (Routine) - Authorized Specialty Diagnoses / Procedures Referred By Khadijah tamayo Referred To Contact Cardiology Diagnoses Arteriosclerotic heart disease Procedures Follow Up In Cardiology Seth Ying DO [address] [address], [address] [address] Seth Ying DO [address] [place] [address] 2, [address] [address] Referral ID Status Reason Start Date Expiration Date V isits Requested Visits Authorized [id number] Authorized 01/31/2023 01/31/2024 1 1 [facility] Work Phone: Summary Purpose Family History [...] history of hypertensi on: Father(V17.49, Z82.49) Status:Active Relationship Condition Age at Onset Recorded Date/T mayito Not Specified Diabetes mellitus Unknown Heart disease Unknown father Diabetes mellitus Unknown father Unknown Diabetes mellitus Unknown Unknown Relationship Condition Age at Onset Recorded Date/T mayito mother Diabetes mellitus Unknown Heart disease Unknown father Diabetes mellitus Unknown father Unknown Diabetes mellitus Unknown Unknown Advance Directives No Advanced Directives Records Found Advance Directive Response Recorded Date/ Time Advance Directives No March 1:42pm Assessments No Assessments Information Available Chief Complaint * SETH MURPHY is being seen for a 6 month follow-up of. * Patient is a 65-year-old gentleman returns for follow-up he is doing well he is still ambulatory with wheelchair and walker following and is prolonged and severe COVID illness in 2019. He underwent anterior WA with PCI chronic total occlusion of the proximal through mid LAD x2 drug-eluting stents in March 2018; follow-up echocardiogram revealed low normal left ventricular function with ejection fraction of 50% in September 2018. In March 2020 he underwent COVID infection with prolonged intubation and hospitalization in [place] with multiorgan failure details of which have been reviewed. * He stable without angina, heart failure recurrent hospitalizations, currently on dialysis due to end-stage renal disease associated with his COVID infection and diabetes. * Recommendations, obtain appropriate laboratories and follow-up in 6 to 12 months * SETH MURPHY is being seen for a 6 [...] He has a history of ASHD with TREE PRUNER intervention of the LAD in April 2018 with normalization of his LV function. He has underlying diabetes mild obesity * He remains on appropriate guideline directed medical therapies and is intolerant to GOMEZ ARB due to hypotension. * Recommendations, will continue current therapies and follow-up in 1 year Chief Complaint and Reason for Visit Chief Complaint bilateral feet wound s bilateral feet wounds bilateral feet wounds bilateral feet wounds bilateral feet wounds [facility] D[facility]C 04/16/23 Reason for Visit Anemia of renal dise ase Benign hypertension with end-stage renal disease Bilateral pressure ulcer of feet Cellulitis of left foot ESRD (end stage renal disease) Foot ulcer, left Osteomyelitis Osteomyelitis of foot, left, acute Secondary hyperparathyroidism Septic arthritis of left foot Type 2 diabetes mellitus with diabetic chronic kidney disease Ulcer of right foot Wound infection Diabetes mellitus Obesity Hyperkalemia Foot ulcer, left Osteomyelitis of foot, left, acute Receiving intravenous antibiotic treatment as outpatient Septic arthritis of left foot Diabetes mellitus Chief Complaint bilateral feet wound s bilateral feet wounds bilateral feet wounds bilateral feet wounds bilateral feet wounds [facility] 04/16/23 L foot wound, hx diabetic ulcers Reason for Visit Anemia of renal dise ase Benign hypertension with end-stage renal disease Bilateral pressure ulcer of feet Cellulitis of left foot ESRD (end stage renal disease) Foot ulcer, left Osteomyelitis Osteomyelitis of foot, left, acute Secondary hyperparathyroidism Septic arthritis of left foot Type 2 diabetes mellitus with diabetic chronic kidney disease Ulcer of right foot Wound infection Diabetes mellitus Obesity Hyperkalemia Foot ulcer, left Osteomyelitis of foot, left, acute Receiving intravenous antibiotic treatment as outpatient Septic arthritis of left foot Diabetes mellitus Anemia of renal disease Benign hypertension with end-stage renal disease Cellulitis of left foot Foot ulcer, left Osteomyelitis of foot, left, acute Type 2 diabetes mellitus with hyperglycemia Chief Complaint L foot wound, hx chava betic ulcers L foot wound, hx diabetic ulcers L foot wound, hx diabetic ulcers sepsis, osteomyelitis sepsis, osteomyelitis sepsis, osteomyelitis sepsis, osteomyelitis sepsis, osteomyelitis Reason for Visit Anemia of renal dise ase Benign hypertension with end-stage renal disease ESRD (end stage renal disease) Osteomyelitis Secondary hyperparathyroidism Type 2 diabetes mellitus with diabetic chronic kidney disease Type 2 diabetes mellitus with hyperglycemia Anemia Anemia of renal disease Benign hypertension with end-stage renal disease Cellulitis Deep vein thrombosis of right lower extremity Diabetes mellitus with diabetic neuropathy [id number] ESRD (end stage renal disease) Fever Osteomyelitis Peripheral arterial disease PVD (peripheral vascular disease) Secondary hyperparathyroidism Septic shock Severe sepsis Type 2 diabetes mellitus with diabetic chronic kidney disease Ulcer of foot Ventricular bigeminy Diabetes mellitus Additional Source Comments (unrecognized sect ion and content) No Status Records FoundNo Status Records FoundNo Status Records FoundNo Status Records FoundNo Status Records FoundNo Status Records FoundNo Status Records FoundNo Status Records FoundNo Status Records FoundNo Status Records FoundNo Status Records FoundNo Status Records Found INFORMATION SOURCE (unrecogn ized section and content) DATE CREATED AUTHOR 09/03/2019 [facility] DATE CREATED AUTHOR AUTHOR'S ORGANIZ ATION 05/19/2020 [facility] DATE CREATED AUTHOR AUTHOR'S ORGANIZ ATION 10/21/2020 [facility] DATE CREATED AUTHOR AUTHOR'S ORGANIZ ATION 01/12/2022 [facility] DATE CREATED AUTHOR AUTHOR'S ORGANIZ ATION 05/19/2022 [facility] DATE CREATED AUTHOR AUTHOR'S ORGANIZ ATION 06/20/2022 [facility] pital DATE CREATED AUTHOR AUTHOR'S ORGANIZ ATION 11/24/2022 [facility] DATE CREATED AUTHOR AUTHOR'S ORGANIZ ATION 02/03/2023 [facility] DATE CREATED AUTHOR AUTHOR'S ORGANIZ ATION 03/24/2023 [facility] DATE CREATED AUTHOR AUTHOR'S ORGANIZ ATION 06/23/2023 [facility] ical Center DATE CREATED AUTHOR AUTHOR'S ORGANIZ ATION 08/31/2023 [facility] EPIC DATE CREATED AUTHOR AUTHOR'S ORGANIZ ATION 09/05/2023 [facility] ys[facility] Care Team (unrecognized sect ion and content) 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 Relationship Specialty Start Date End Date Nav Alejo MD [address] [phone] PCP - General 05/22/18 Team Status: Active Member Role Status Dates Nav Alejo MD Primary Care Provider Active Team Status: Active Member Role Status Dates Nav Alejo MD Primary Care Provider Active Start: April 06, 2023 Hilario Nunez MD Attending Provider Active Start : April 06, 2023 Team Status: Inactive Member Role Status Dates Nav Alejo MD Primary Care Provider Active Start: April 09, 2023 End: April 16, 2023 Ron Levi DO Emergency Provider Active Sta rt: April 09, 2023 End: April 16, 2023 Mikey Allen DO RES Active Star t: April 09, 2023 End: April 16, 2023 Gabriel Gould DO Admit Provider Active Start: April 09, 2023 End: April 16, 2023 Hilario Nunez MD Other Provider Active Start: [facility] 2023 End: April 16, 2023 Guicho Chun MD Other Provider Active Start: April 09, 2023 End: April 16, 2023 Alfredo Acosta MD Other Provider Active Start: April 09, 2023 End: April 16, 2023 Felisa iWn DPM Other Provider Active Star t: April 09, 2023 End: April 16, 2023 Alon Santiago MD Attending Provider Active Start: April 09, 2023 End: April 16, 2023 Team Status: Active Member Role Status Dates Nav Alejo MD Primary Care Provider Active Start: April 09, 2023 Ron Levi DO Emergency Provider Active Sta rt: April 09, 2023 Mikey Allen DO RES Active Star t: April 09, 2023 Gabriel Gould DO Attending Provider Active St art: April 09, 2023 Team Status: Active Member Role Status Dates Nav Alejo MD Primary Care Provider Active Start: April 10, 2023 Ron Levi DO Emergency Provider Active Sta rt: April 10, 2023 Mikey Allen DO RES Active Star t: April 10, 2023 Gabriel Gould DO Admit Provider, Othe r Provider Active Start: April 10, 2023 Hilario Nunez MD Other Provider Active Start: 2023 Guicho Chun MD Other Provider Active Start: April 10, 2023 Felisa Win DPM Other Provider Active Star t: April 10, 2023 Alfredo Acosta MD Attending Provider, Other Provider Active Start: April 10, 2023 Team Status: Active Member Role Status Dates Nav Alejo MD Primary Care Provider Active Start: April 10, 2023 Ron Levi DO Emergency Provider Active Sta rt: April 10, 2023 Mikey Allen DO RES Active Star t: April 10, 2023 Gabriel Gould DO Admit Provider, Othe r Provider Active Start: April 10, 2023 Hilario Nunez MD Attending Provider, Other Provider Active Start: April 10, 2023 Guicho Chun MD Other Provider Active Start: April 10, 2023 Alfredo Acosta MD Other Provider Active Start: April 10, 2023 Felisa Win DPM Other Provider Active Star t: April 10, 2023 Team Status: Active Member Role Status Dates Nav Alejo MD Primary Care Provider Active Start: April 10, 2023 Ron Levi DO Emergency Provider Active Sta rt: April 10, 2023 Mikey Allen DO RES Active Star t: April 10, 2023 Gabriel Gould DO Admit Provider, Othe r Provider Active Start: April 10, 2023 Hilario Nunez MD Other Provider Active Start: 2023 Guicho Chun MD Attending Prov ider, Other Provider Active Start: April 10, 2023 Alfredo Acosta MD Other Provider Active Start: April 10, 2023 Felisa Win DPM Other Provider Active Star t: April 10, 2023 Team Status: Active Member Role Status Hosea Alejo MD Primary Care Provide r, Attending Provider Active Start: April 23, 2023 Team Status: Inactive Member Role Status Dates Nav Alejo MD Primary Care Provider Active Start: May 09, 2023 End: May 09, 2023 Alfredo Acosta MD Attending Provider Active Sta rt: May 09, 2023 End: May 09, 2023 Team Status: Active Member Role Status Hosea Alejo MD Primary Care Provider Active Start: May 05, 2023 Marina Agudelo MD Attending Provider Active Star t: May 05, 2023 Team Status: Active Member Role Status Hosea Alejo MD Primary Care Provider Active Start: June 21, 2023 Philip Chatman PA-C Emergency Provider Active Start: June 21, 2023 Gabriel Gould DO Admit Provider, Attending Provider Active Start: June 21, 2023 Team Status: Active Member Role Status Dates Nav Alejo MD Primary Care Provider Active Start: June 05, 2023 Benita Renteria MD Attending Provider Active Star t: June 05, 2023 Team Status: Inactive Member Role Status Hosea Alejo MD Primary Care Provider Active Start: June 21, 2023 End: June 26, 2023 Philip Chatman PA-C Emergency Provider Active Start: June 21, 2023 End: June 26, 2023 Gabriel Gould DO Admit Provider Active Start: June 21, 2023 End: June 26, 2023 Alfredo Acosta MD Other Provider Active Start: June 21, 2023 End: June 26, 2023 Marina Agudelo MD Other Provider Active Start: 2023 End: June 26, 2023 Daniel Jackson DPM Other Provider Active Sta rt: June 21, 2023 End: June 26, 2023 Diony Devi DO Attending Provider Active Start: June 21, 2023 End: June 26, 2023 Team Status: Active Member Role Status Hosea Alejo MD Primary Care Provider Active Start: June 22, 2023 End: June 26, 2023 Philip Chatman PA-C Emergency Provider Active Start: June 22, 2023 End: June 26, 2023 Gabriel Gould DO Admit Provider Active Start: June 22, 2023 End: June 26, 2023 Mary Ruffin MD Other Provider Active Start: June 22, 2023 End: June 26, 2023 Alfredo Acosta MD Other Provider Active Start: June 22, 2023 End: June 26, 2023 Marina Agudelo MD Attending Provider, Other Provider Active Start: June 22, 2023 End: June 26, 2023 Daniel Jackson DPM Other Provider Active Sta rt: June 22, 2023 End: June 26, 2023 Team Status: Active Member Role Status Dates Nav Alejo MD Primary Care Provider Active Start: June 24, 2023 End: June 25, 2023 Philip Chatman PA-C Emergency Provider Active Start: June 24, 2023 End: June 25, 2023 Gabriel Gould DO Admit Provider Active Start: June 24, 2023 End: June 25, 2023 Alfredo Acosta MD Attending Provider, Other Provider Active Start: June 24, 2023 End: June 25, 2023 Marina Agudelo MD Other Provider Active Start: 2023 End: June 25, 2023 Daniel Jackson DPM Other Provider Active Sta rt: June 24, 2023 End: June 25, 2023 Diony Devi DO Other Provider Active Start: June 24, 2023 End: June 25, 2023 Team Status: Active Member Role Status Dates Nav Alejo MD Primary Care Provider Active Start: July 08, 2023 Marina Agudelo MD Attending Provider Active Star t: July 08, 2023 Team Status: Active Member Role Status Dates Nav Alejo MD Primary Care Provider Active Start: August 05, 2023 Benita Renteria MD Attending Provider Active Star t: August 05, 2023 Team Status: Inactive Member Role Status Dates Nav Alejo MD Primary Care Provider Active Start: August 25, 2023 End: September 02, 2023 Alon Santiago MD Admit Provider Active Sta rt: August 25, 2023 End: September 02, 2023 Alfredo Acosta MD Other Provider Active Start: August 25, 2023 End: September 02, 2023 Marina Agudelo MD Other Provider Active Start: 2023 End: September 02, 2023 DEMETRIA Abreu Other Provider Active Start: August 25, 2023 End: September 02, 2023 Hilario Nunez MD Other Provider Active Start: 2023 End: September 02, 2023 Benita Renteria MD Other Provider Active Start: 2023 End: September 02, 2023 Romeo Pop DPM Other Provider Active Sta rt: August 25, 2023 End: September 02, 2023 Clay Smith MD Attending Provider Active St art: August 25, 2023 End: September 02, 2023 Team Status: Active Member Role Status Dates Nav Alejo MD Primary Care Provider Active Start: August 26, 2023 Alon Santiago MD Admit Provider Active Sta rt: August 26, 2023 Alfredo Acosta MD Attending Provider, Other Provider Active Start: August 26, 2023 Marina Agudelo MD Other Provider Active Start: 2023 DEMETRIA Abreu Other Provider Active Start: August 26, 2023 Hilario Nunez MD Other Provider Active Start: 2023 Benita Renteria MD Other Provider Active Start: 2023 Susan Gamez DPM Other Provider Active Start: 2023 Denice Dahl MD Other Provider Active Start: August 26, 2023 Team Status: Active Member Role Status Dates Nav Alejo MD Primary Care Provider Active Start: August 26, 2023 Alon Santiago MD Admit Provider Active Sta rt: August 26, 2023 Alfredo Acosta MD Other Provider Active Start: August 26, 2023 Marina Agudelo MD Attending Provider, Other Provider Active Start: August 26, 2023 DEMETRIA Abreu Other Provider Active Start: August 26, 2023 Hilario Nunez MD Other Provider Active Start: 2023 Benita Renteria MD Other Provider Active Start: 2023 Denice Dahl MD Other Provider Active Start: August 26, 2023 Romeo Pop DPM Other Provider Active Sta rt: August 26, 2023 Team Status: Active Member Role Status Dates Nav Alejo MD Primary Care Provider Active Start: August 30, 2023 Alon Santiago MD Admit Provider Active Sta rt: August 30, 2023 Alfredo Acosta MD Other Provider Active Start: August 30, 2023 Marina Agudelo MD Other Provider Active Start: 2023 DEMETRIA Abreu Other Provider Active Start: August 30, 2023 Hilario Nunez MD Other Provider Active Start: [place] 2023 Benita Renteria MD Other Provider Active Start: 2023 Denice Dahl MD Other Provider Active Start: August 30, 2023 Romeo Pop DPM Other Provider Active Sta rt: August 30, 2023 Uriah Espinal MD Attending Provider Active S tart: August 30, 2023 Team Status: Active Member Role Status Dates Nav Alejo MD Primary Care Provider Active Start: September 02, 2023 Alon Santiago MD Admit Provider Active Sta rt: September 02, 2023 Alfredo Acosta MD Other Provider Active Start: September 02, 2023 Marina Augdelo MD Other Provider Active Start: 2023 DEMETRIA Abreu Other Provider Active Start: September 02, 2023 Hilario Nunez MD Attending Provider, Other Provider Active Start: September 02, 2023 Benita Renteria MD Other Provider Active Start: 2023 Romeo Pop DPM Other Provider Active Sta rt: September 02, 2023 Clay Smith MD Other Provider Active Start: September 02, 2023 REASON FOR VISIT (unrecogniz ed section and [...] BE BASED ON THE PRIMARY CLINICAL RECORDS. [facility] [employer] [facility]. provides no warranty or guarantee of the accuracy or completeness of information in this document.
[2023-09-09 17:59] LABS: Vancomycin Trough 11.7 ug/mL (5.0-20.0)
== END 2023-09-09 07:55 | disposition home or self-care (01) ==
LOC: LAB 07:54
PROVIDERS: Family Medicine; PCP Family Medicine
DX: Z51.81 Encounter for therapeutic drug level monitoring (principal); Z79.2 Long term (current) use of antibiotics
CPT/HCPCS: 36415; 80202

== ENCOUNTER 2023-09-10 15:24 | Outpatient (OUT) | payer MEDICARE, SELFPAY | END 2023-09-10 15:25 | disposition home or self-care (01) | LOC: WC 15:25 | PROVIDERS: PCP Family Medicine; Visit Provider Physician Assistant | DX: E11.621 Type 2 diabetes mellitus with foot ulcer (principal); L97.511 Non-pressure chronic ulcer of other part of right foot limited to breakdown of skin | CPT/HCPCS: 17250 ==

== ENCOUNTER 2023-09-19 13:15 | Outpatient (REF) | payer MEDICARE, SELFPAY | END 2023-09-19 13:16 | disposition home or self-care (01) | LOC: LAB 13:15 | PROVIDERS: PCP Family Medicine; Visit Provider Physician Assistant | DX: M86.171 Other acute osteomyelitis, right ankle and foot (principal) | CPT/HCPCS: 88305 ==

== ENCOUNTER 2023-09-19 14:24 | Outpatient (OUT) | payer MEDICARE, SELFPAY | END 2023-09-19 14:25 | disposition home or self-care (01) | LOC: WC 14:24 | PROVIDERS: PCP Family Medicine; Visit Provider Physician Assistant | DX: E11.621 Type 2 diabetes mellitus with foot ulcer (principal); L97.511 Non-pressure chronic ulcer of other part of right foot limited to breakdown of skin | CPT/HCPCS: 11104 ==

== ENCOUNTER 2023-09-20 01:25 | Outpatient (REF) | payer MEDICARE, SELFPAY ==
--- OUTSIDE RECORDS SUMMARY | 2023-09-20 01:30 | XMS_ITS | CCD ---
Author Organization [facility] CliniSysc Care Team Providers Care Estate Conservator Name Role Phone NAV ALEJO Referring Unavailable [...] Primary Care Unavailable GAYE, MARANDA Attending Unavailable AGYE, MARANDA Consulting Unavailable GAYE, MARANDA Admitting Unavailable HOY ., DR MCDANIEL Primary Care Unavailable NAKUL .NYLA Consulting Unavailabl e PAY ., DR VARGAS Attending Unavailable MELO ., DR MCDANIEL Primary Care Unavailable PAY ., DR VARGAS Admitting Unavailable POLICVIRGILIO, CHRISTIANNE Consulting Unavailable Shereen Connolly Unavailable Unavailable Alfredo Acosta Unavailable Dr. Nav Alejo Primary Care Unavail able Stepan, Dr. Seth Roberts Attending Unava ilable Stepan, Dr. Seth Roberts Referring Unava ilable Melo, Dr. Nav Fuentes Primary Care Unavail able Nav Alejo MD Primary Care Provider [phone] SETH YING Attending Unavailable NAV ALEJO Primary Care Unavailable DEIDRE SANDERSON Attending Unavailable SFAELOS, DEIDRE Attending Unavailable SFAELOS DEIDRE Attending Unavailable DORIAN, LUISNAAAMED Attending Unavailable DORIAN, MOHAMED Admitting Unavailable DORIAN, MOHAMED Attending Unavailable DORIAN, MOHAMED Admitting Unavailable DORIAN, MOHAMED Attending Unavailable DORIAN, MOHAMED Admitting Unavailable ROSANNE GAMEZ Attending Unavailable CLARISSEELARI DEIDRE Referring Unavailable ROSANNE GAMEZ Referring Unavailable MD Nav Alejo Primary Care Provider [phone] DO Ron Levi Emergency Provider DO Gabriel Gould Admit Provider MD Hilario Nunez Other Provider MD Guicho Chun Other Provider MD Alfredo Acosta Other Provider ISAIAH Win Other Provider MD Alon Santiago Attending Provider [phone] MARIANN Chatman Emergency Provider [phone] DO Gabriel Gould Attending Provider Luisana Alarconamed [...] Care Provider DO Gabriel Gould Admit Provider MD Alfredo Acosta Other Provider MD Marina Agudelo Other Provider ISAIAH Jackson Other Provider [phone] DO Diony Devi Attending Provider [phone] MD Alon Santiago Admit Provider [phone] DEMETRIA Jansen Other Provider Unavailable MD Hilario Nunez Other Provider MD Benita Renteria Other Provider ISAIAH Pop Other Provider MD Clay Smith Attending Provider [phone] Clay Smith Attending Unavailable Alon Santiago Admitting Unavailable Alfredo Acosta Consulting Unavailable Nav Alejo Primary Care Unavailable Marina Agudleo Consulting Unavailable Christi Jansen Consulting Unavailable Shiv, [...] [ticagrelor] Drug Allergy 0 Headache, Nausea/vomitin g [facility] (16 sources) Ticagrelor; Translations: [ticagrelor] Drug Allergy 0 Unknown (qualifier value) [facility] Repository (5 sources) Ticagrelor; Translations: [Brilinta TABS] Drug Allergy Nausea, Headache, Other [facility] 250 DO Work Phone: (13 sources) Coban Bandage; Translations: [Coban Bandage] Drug allergy Eruption of skin (disorder) [facility] (4 sources) Angiotensin Converting Enzyme (Gomez) Inhibitors; Translations: [GOMEZ Inhibitors] Allergy to drug (finding) 3 Hypotension [facility] 3 Repository (3 sources) Beta-Adrenergic Joi; Translations: [Beta Adrenergic Blockers] Allergy to drug (finding) Hypotension [facility] 250 DO Work Phone: (3 sources) Bandages MISC; Translations: [Bandages MISC] Allergy to drug (finding) Rash -[facility] 250 DO Work Phone: (1 source) Angiotensin-conve rting enzyme inhibitor agent Propensity to adverse reactions 3 Other [facility] Work Phone: (2 sources) Selective beta-2 adrenoceptor stimulants; Translations: [BETA-ADRENERGIC AGENTS] Propensity to adverse reactions 3 Other [facility] Work Phone: (1 source) OTHER; Translations: [OTHER] Propensity to adverse reactions (disorder) 3 [facility] Repository (3 sources) Chlorhexidine Drug Allergy 4 Unknown Reaction [facility] (3 sources) coban Allergy to substance 4 Unknown Reaction [facility] Medications Current Medications Medication Drug Class(es) Dates [...] Start: 09-02-2023 take [address] [facility] twice daily Apixaban (Eliquis) 5 mg [...] q12hr, # 20 cap(s), Refills(s) 0, Pharmacy: [facility]/pharmacy #[id number], 178, cm, 07/09/22 17:32:00 EDT, Height/Length [...] Corticosteroid Start: 12-08-2018 FreeStyle Bre 14 Day [place] - (1 source) Start: 04-15-2018 Freestyle Bre [...] tablet by mouth once daily. 0 Active Xqolxpzoydvv-Lfpm-Msdit Acid (Centrum Complete) 18-400 mg-mcg tablet (3 sources) Start : 04-09 take 1 tablet by mouth once daily Hgmijabydlhq-Mccu-Sdavw Acid (Centrum Complete) 18-400 mg-mcg tablet Active [...] 5 mL 100 unit(s), IV, q24hr, Follow [facility] PICC line flushing policy, # 3 EA, [...] April 17, 2018 4:38pm polyethylene glycol 3350 59652 mg powder for oral solution (19 sources) [...] [Coronary atherosclerosis of unspecified type of vessel, [place] or graft] Onset: 9 07-09-2019 Chronic Coronary [...] source) Long-term current use of insulin; Translations: [[facility] (current) use of insulin] Episodic Other aftercare (3 sources) Drug therapy finding; Translations: [ferry terminal agent (current) use of antibiotics] 05-09-2023 Episodic Other aftercare (3 sources) ferry terminal agent (current) use of antibiotics; Translations: [Long-term (current) [...] 05-06-2018 07-09-2019 Episodic Other aftercare (1 source) [facility] (current) use of insulin; Translations: [HALF-WAY CURRENT USE OF INSULIN] Onset: 08-29-2021 Episodic Other aftercare (1 source) Other terminal carman (current) drug therapy; Translations: [OTH BOOKING AGENT CURRENT DRUG THERAPY] Onset: 08-29-2021 Episodic Other aftercare (1 source) [facility] (current) use of aspirin; Translations: [HALF-WAY CURRENT USE OF ASPIRIN] Onset: 08-29-2021 Episodic [...] BCG dye [Mass/Vol] 2.9 g/dL Low 3.5-5.7 [facility] Calcium [Mass/volume] in Ser um or PlasmaOrdered By: Hilario Nunez on 09-02-2023 Calcium [Mass/Vol] 9.5 mg/dL Normal 8.6-10.3 [facility] Comment on above: Performed By: #### R ENAL, CBCNO ####[facility] [id number] [place] [id number] [facility] Capillary blood glucose mike urement by glucometer (mass/volume)Ordered By: Clay Smith on 09-02-2023 Glucose [Mass/Vol] 122 mg/dL Normal [facility] Comment on above: Random Glucose Refer ence Range is dependent on time and content of last meal. Glucose of more than 200 mg/dL in a nonstressed, ambulatory subject supports the diagnosis of Diabetes Mellitus. Result Comment: [facility] Glucose Reference Range is dependent on time and content of last meal. Glucose of more than 200 mg/dL in a nonstressed, ambulatory subject supports the diagnosis of Diabetes Mellitus. Performed By: #### G DARLENE ####Point of Care testing, Carbon dioxide, total [Moles /volume] in Serum or PlasmaOrdered By: Hilario Nunez on 09-02-2023 CO2 [Moles/Vol] 24.3 mmol/L Normal 21.0-31.0 [facility] Comment on above: Performed By: #### REBECCA PRUITT ####[address] Chloride [Moles/volume] in S bushra or PlasmaOrdered By: Hilario Nunez on 09-02-2023 Chloride [Moles/Vol] 97 mmol/L Low 98-107 [facility] Comment on above: Performed By: #### REBECCA PRUITT ####[place] [id number] [facility] Creatinine [Mass/volume] in Serum or PlasmaOrdered By: Hilario Nunez on 09-02-2023 Creatinine [Mass/Vol] 8.73 mg/dL Significan t change up 0.70-1.30 [facility] Comment on above: Delta: 6.97 on 08/31 Performed By: #### REBECCA PRUITT ####[place] [id number] [facility] Erythrocyte distribution wid th [Ratio] by Automated countOrdered By: Hilario Nunez on 09-02-2023 Erythrocyte distribution width (RBC) [Ratio] 18.4 % High 12.0-14.8 [facility] Comment on above: Performed By: #### REBECCA PRUITT ####[place] [id number] [facility] Erythrocytes [#/volume] in B lood by Automated countOrdered By: Hilario Nunez on 09-02-2023 RBC (Bld) [#/Vol] 3.29 10*6/uL Low 3.90-5.60 [facility] Comment on above: Performed By: #### R RAVEN SALGUERONO ####[facility] [place] [address] [facility] Glucose Poct Glucometerson 0 09-02-2023 Commemt1 Glu2: Cleaned Meter Normal [facility] Comment on above: Result Comment: PERF ORMED BY:[place] [address] [place], [place] [phone] MEDICAL DIRECTORDEAN MCWILLIAMS M.D. Performed By: #### G LULS ####Point of Care testing, Commemt1 Glu2: Cleaned Meter Normal [facility] Comment on above: Result Comment: PERF ORMED BY:[address] [place], [place] [phone] MEDICAL DIRECTORDEAN MCWILLIAMS M.D. Performed By: #### G LULS ####Point of Care testing, Glucose [Mass/Vol] 135 mg/dL Normal [facility] Comment on above: Result Comment: [place] Glucose Reference Range is dependent on time and content of last meal. Glucose of more than 200 mg/dL in a nonstressed, ambulatory subject supports the diagnosis of Diabetes Mellitus. Performed By: #### G LULS ####Point of Care testing, Glucose [Mass/volume] in Ser um or PlasmaOrdered By: Hilario Nunez on 09-02-2023 Glucose [Mass/Vol] 128 mg/dL High 70-100 [facility] Comment on above: ADA recommended refe rence rangeRandom Glucose Reference Range is dependent on time and content of last meal. Glucose of more than 200 mg/dL in a nonstressed, ambulatory subject supports the diagnosis of Diabetes Mellitus. Result Comment: [place] [facility] Glucose Reference Range is dependent on time and content of last meal. Glucose of more than 200 mg/dL in a nonstressed, ambulatory subject supports the diagnosis of Diabetes Mellitus. ADA recommended reference range Performed By: #### R ENAL CBCNO ####[facility] [place], [place] [address] [place] [address] Hematocrit [Volume Fraction] of Blood by Automated countOrdered By: Hilario Nunez on 09-02-2023 Hematocrit (Bld) [Volume fraction] 29.0 % Low 38.8-50.0 [facility] Comment on above: Performed By: #### Eri SALGUERO CBCNO ####[address] Hemoglobin [Mass/volume] in BloodOrdered By: Hilario Nunez on 09-02-2023 Hemoglobin (Bld) [Mass/Vol] 9.3 g/dL Low 13.0-17.0 [facility] Comment on above: Performed By: #### REBECCA PRUITT ####[address] Hemogram CBC Without Diffon 09-02-2023 Mean Corpuscular HGB Conc 32.2 g/dL Low 32.5-35.6 [facility] Comment on above: Performed By: #### REBECCA PRUITT ####[address] WBC (Bld) [#/Vol] 8.2 10*3/uL Normal 4.1-10.5 [facility] Comment on above: Performed By: #### RAVEN PRUITTNO ####[address] Leukocytes [#/volume] correc jennifer for nucleated erythrocytes in Blood by Automated counOrdered By: Hilario Nunez on 09-02-2023 WBC corrected for nucl RBC Auto (Bld) [#/Vol] 8.2 10*3/uL 4.1-10.5 [facility] MCH [Entitic mass] by Automa jennifer countOrdered By: Hilario Nunez on 09-02-2023 MCH (RBC) [Entitic mass] 28.4 pg Normal 27.5-35.2 [facility] Comment on above: Performed By: #### Eri SALGUERO CBCNO ####[address] MCHC Auto (RBC) [Mass/Vol]Or dered By: Hilario Nunez on 09-02-2023 MCHC (RBC) [Mass/Vol] 32.2 g/dL Low 32.5-35.6 [facility] MCV [Entitic volume] by Auto mated countOrdered By: Hilario Nunez on 09-02-2023 MCV (RBC) [Entitic vol] 88.0 fL Normal 83.5-101 [facility] Comment on above: Performed By: #### R REBECCA SALGUERO ####[facility] No Panel InformationOrdered By: Clay Smith on 09-02-2023 Bedside Glucose Comment Glu2: cleaned meter [facility] No Panel InformationOrdered By: Hilario Nunez on 09-02-2023 Estimated GFR (CKD-EPI) 6.126 mL/Min [facility] Pharmacy Creatinine Clearance (Chem 9.90 [facility] Phosphate [Mass/volume] in S bushra or PlasmaOrdered By: Hilario Nunez on 09-02-2023 Phosphate [Mass/Vol] 5.3 mg/dL High 2.5-4.5 [facility] Comment on above: Performed By: #### REBECCA PRUITT ####[place] [id number] Platelet mean volume [Entiti c volume] in Blood by Automated countOrdered By: Hilario Nunez on 09-02-2023 Platelet mean volume (Bld) [Entitic vol] 7.5 fL Normal 6.6-10.1 [facility] Comment on above: Result Comment: PERF ORMED BY:[address] [place], [place] [phone] MEDICAL DIRECTORDEAN MCWILLIAMS M.D. Performed By: #### REBECCA PRUITT ####[place] [id number] Platelets [#/volume] in Bloo d by Automated countOrdered By: Hilario Nunez on 09-02-2023 Platelets (Bld) [#/Vol] 343 10*3/uL Normal 150-450 [facility] Comment on above: Performed By: #### REBECCA PRUITT ####[address] [address] [place] [address] [facility] Potassium [Moles/volume] in Serum or PlasmaOrdered By: Hilario Nunez on 09-02-2023 Potassium [Moles/Vol] 4.9 mmol/L Normal 3.5-5.1 [facility] Comment on above: Performed By: #### REBECCA PRUITT ####[address] [address] [facility] Renal Function Panelon 09-01 Albumin [Mass/Vol] 2.9 g/dL Low 3.5-5.7 [facility] Comment on above: Performed By: #### REBECCA PRUITT ####[address] [address] [facility] Creatinine Clr Calc Pharmacy 9.90 Normal [facility] Comment on above: Result Comment: PERF ORMED BY:[address] [place], [place] [phone] MEDICAL DIRECTORDEAN MCWILLIAMS M.D. Performed By: #### REBECCA PRUITT ####[address] [address] [facility] GFR/1.73 sq M.predicted MDRD (S/P/Bld) [Vol rate/Area] 6.126 mL/min/{1.73_m2} Normal [facility] Comment on above: Performed By: #### REBECCA PRUITT ####[address] [address] [facility] Serum or plasma anion gap de terminationOrdered By: Hilario Nunez on 09-02-2023 Anion gap [Moles/Vol] 14.6 mmol/L Normal 6.0-15.0 [facility] Comment on above: Performed By: #### REBECCA PRUITT ####[address] [address] [facility] Sodium [Moles/volume] in Ser um or PlasmaOrdered By: Hilario Nunez on 09-02-2023 Sodium [Moles/Vol] 131 mmol/L Low 136-145 [facility] Comment on above: Performed By: #### R RAVEN SALGUERONO ####[place] [address] [place] [address] [facility] Urea nitrogen [Mass/volume] in Serum or PlasmaOrdered By: Hilario Nunez on 09-02-2023 Urea nitrogen [Mass/Vol] 32 mg/dL High 7-25 [facility] Comment on above: Performed By: #### R JOSE M CBCNO ####[place] [id number] [facility] Anisocytosis [Presence] in B lood by Light microscopyOrdered By: Denice Dahl on 09-01-2023 Anisocytosis Ql (Bld) Moderate Normal [facility] Comment on above: Performed By: #### B MP, DIFF CBC ####[place] [id number] [facility] Basic Metabolic Panelon 08-12 Anion gap [Moles/Vol] 12.4 mmol/L Normal 6.0-15.0 [facility] Comment on above: Performed By: #### B MP, DIFF CBC ####[place] [id number] [facility] Calcium [Mass/Vol] 9.7 mg/dL Normal 8.6-10.3 [facility] Comment on above: Performed By: #### B MP, DIFF CBC ####[place] [id number] [facility] Chloride [Moles/Vol] 98 mmol/L Normal 98-107 [facility] Comment on above: Performed By: #### B MP, DIFF CBC ####[address] [address] [facility] CO2 [Moles/Vol] 28.1 mmol/L Normal 21.0-31.0 [facility] Comment on above: Performed By: #### B MP, DIFF CBC ####[address] [place] [address] [facility] Creatinine [Mass/Vol] 6.97 mg/dL High 0.70-1.30 [facility] Comment on above: Performed By: #### B MP, DIFF CBC ####[place] [id number] [facility] Creatinine Clr Calc Pharmacy 12.26 Normal [facility] Comment on above: Result Comment: PERF ORMED BY:[address] [place], [place] [phone] MEDICAL JAKE MCWILLIAMS M.D. Performed By: #### B MP, DIFF CBC ####[address] GFR/1.73 sq M.predicted MDRD (S/P/Bld) [Vol rate/Area] 8.027 mL/min/{1.73_m2} Normal [facility] Comment on above: Performed By: #### B MP, DIFF CBC ####[address] Glucose [Mass/Vol] 105 mg/dL Significant change up 70-100 [facility] Comment on above: Result Comment: [facility] Glucose Reference Range is dependent on time and content of last meal. Glucose of more than 200 mg/dL in a nonstressed, ambulatory subject supports the diagnosis of Diabetes Mellitus. ADA recommended reference range Performed By: #### B MP, DIFF CBC ####[place] [id number] [facility] Potassium [Moles/Vol] 4.5 mmol/L Normal 3.5-5.1 [facility] Comment on above: Performed By: #### B MP, DIFF CBC ####[place] [id number] [facility] Sodium [Moles/Vol] 134 mmol/L Low 136-145 [facility] Comment on above: Performed By: #### B MP, DIFF CBC ####[place] [id number] [facility] Urea nitrogen [Mass/Vol] 24 mg/dL Normal 7-25 [facility] Comment on above: Performed By: #### B MP, DIFF CBC ####[address] Basophils Auto (Bld) [#/Vol] Ordered By: Denice Dahl on 09-01-2023 Basophils (Bld) [#/Vol] N/A [facility] Basophils/100 WBC Auto (Bld) Ordered By: Denice Dahl on 09-01-2023 Basophils/100 WBC (Bld) N/A [facility] Basophils/100 leukocytes in Blood by Manual countOrdered By: Denice Dahl on 09-01-2023 Basophils/100 WBC (Bld) 1 % Normal 0-2 [facility] Comment on above: Performed By: #### B MP, DIFF CBC ####[address] Diff and CBCon 09-01-2023 Erythrocyte distribution width (RBC) [Ratio] 18.4 % High 12.0-14.8 [facility] Comment on above: Performed By: #### B MP, DIFF CBC ####[address] Hematocrit (Bld) [Volume fraction] 26.7 % Low 38.8-50.0 [facility] Comment on above: Performed By: #### B MP, DIFF CBC ####[address] Hemoglobin (Bld) [Mass/Vol] 8.9 g/dL Low 13.0-17.0 [facility] Comment on above: Performed By: #### B MP, DIFF CBC ####[address] MCH (RBC) [Entitic mass] 29.1 pg Normal 27.5-35.2 [facility] Comment on above: Performed By: #### B MP, DIFF CBC ####[address] MCV (RBC) [Entitic vol] 87.3 fL Normal 83.5-101 [facility] Comment on above: Performed By: #### B MP, DIFF CBC ####[place] [id number] [facility] Mean Corpuscular HGB Conc 33.4 g/dL Normal 32.5-35.6 [facility] Comment on above: Performed By: #### B MP, DIFF CBC ####[place] [id number] [facility] Metamyelocytes 1 % High 0-0 [facility] Comment on above: Performed By: #### B MP, DIFF CBC ####[place] [id number] [facility] Platelet Estimate Normal Normal Normal [facility] Comment on above: Performed By: #### B MP, DIFF CBC ####[place] [id number] [facility] Platelet mean volume (Bld) [Entitic vol] 7.8 fL Normal 6.6-10.1 [facility] Comment on above: Performed By: #### B MP, DIFF CBC ####[place] [id number] [facility] Platelet Morphology Normal Normal Normal [facility] Comment on above: Result Comment: PERF ORMED BY:[address] [place], [place] [phone] MEDICAL JAKE MCWILLIAMS M.D. Performed By: #### B MP, DIFF CBC ####[place] [id number] [facility] Platelets (Bld) [#/Vol] 337 10*3/uL Normal 150-450 [facility] Comment on above: Performed By: #### B MP, DIFF CBC ####[place] [id number] [facility] Polychromasia Slight Normal [facility] Comment on above: Performed By: #### B MP, DIFF CBC ####[place] [id number] [facility] RBC (Bld) [#/Vol] 3.06 10*6/uL Low 3.90-5.60 [facility] Comment on above: Performed By: #### B MP, DIFF CBC ####[address] [place] [address] [place] Eosinophils Auto (Bld) [#/Vo l]Ordered By: Denice Dahl on 09-01-2023 Eosinophils (Bld) [#/Vol] N/A [facility] Eosinophils/100 WBC Auto (Bl d)Ordered By: Denice Dahl on 09-01-2023 Eosinophils/100 WBC (Bld) N/A [facility] Eosinophils/100 leukocytes i n Blood by Manual countOrdered By: Denice Bienvenidobenson on 09-01-2023 Eosinophils/100 WBC (Bld) 3 % Normal 1-3 [facility] Comment on above: Performed By: #### B MP, DIFF CBC ####[address] [place] [address] [facility] Glucose Poct Glucometerson 0 09-01-2023 Glucose [Mass/Vol] 376 mg/dL Normal [facility] Comment on above: Result Comment: [facility] Glucose Reference Range is dependent on time and content of last meal. Glucose of more than 200 mg/dL in a nonstressed, ambulatory subject supports the diagnosis of Diabetes Mellitus.PERFORMED BY:[address] [place], [place] [phone] MEDICAL DIRECTORDEAN MCWILLIAMS M.D. Performed By: #### G LULS ####Point of Care testing, Glucose [Mass/Vol] 262 mg/dL Normal [facility] Comment on above: Result Comment: [facility] Glucose Reference Range is dependent on time and content of last meal. Glucose of more than 200 mg/dL in a nonstressed, ambulatory subject supports the diagnosis of Diabetes Mellitus.PERFORMED BY:[address] [place], [place] [phone] MEDICAL JAKE MCWILLIAMS M.D. Performed By: #### G LULS ####Point of Care testing, Glucose [Mass/Vol] 255 mg/dL Normal [facility] Comment on above: Result Comment: [facility] Glucose Reference Range is dependent on time and content of last meal. Glucose of more than 200 mg/dL in a nonstressed, ambulatory subject supports the diagnosis of Diabetes Mellitus.PERFORMED BY:[address] [place], [place] [phone] MEDICAL DIRECTORDEAN MCWILLIAMS M.D. Performed By: #### G LULS ####Point of Care testing, Glucose [Mass/Vol] 88 mg/dL Normal [facility] Comment on above: Result Comment: [facility] Glucose Reference Range is dependent on time and content of last meal. Glucose of more than 200 mg/dL in a nonstressed, ambulatory subject supports the diagnosis of Diabetes Mellitus.PERFORMED BY:[address] [place], [place] [phone] MEDICAL DIRECTORDEAN MCWILLIAMS M.D. Performed By: #### G LULS ####Point of Care testing, Leukocytes [#/volume] in Blo od by Automated countOrdered By: Denice Dahl on 09-01-2023 WBC (Bld) [#/Vol] 8.9 10*3/uL Normal 4.1-10.5 [facility] Comment on above: Performed By: #### B MP, DIFF CBC ####[facility] [id number] [place] [id number] [facility] Lymphocytes Auto (Bld) [#/Vo l]Ordered By: Denice Dahl on 09-01-2023 Lymphocytes (Bld) [#/Vol] N/A [facility] [facility] Lymphocytes/100 WBC Auto (Bl d)Ordered By: Denice Dahl on 09-01-2023 Lymphocytes/100 WBC (Bld) N/A [facility] Lymphocytes/100 leukocytes i n Blood by Manual countOrdered By: Denice Dahl on 09-01-2023 Lymphocytes/100 WBC (Bld) 16 % Low 18-42 [facility] Comment on above: Performed By: #### B MP, DIFF CBC ####[facility] [address] [place] [address] [facility] Manual blood segmented neutr ophils/100 leukocytesOrdered By: Denice Dahl on 09-01-2023 Segmented neutrophils/100 WBC (Bld) 71 % High 50-70 [facility] Comment on above: Performed By: #### B MP, DIFF CBC ####[facility] [address] Metamyelocytes/100 WBC Manua l cnt (Bld)Ordered By: Denice Dahl on 09-01-2023 Metamyelocytes/100 WBC (Bld) 1 % High 0-0 [facility] Monocytes Auto (Bld) [#/Vol] Ordered By: Denice Dahl on 09-01-2023 Monocytes (Bld) [#/Vol] N/A [facility] Monocytes/100 WBC Auto (Bld) Ordered By: Denice Dahl on 09-01-2023 Monocytes/100 WBC (Bld) N/A [facility] Monocytes/100 leukocytes in Blood by Manual countOrdered By: Denice Dahl on 09-01-2023 Monocytes/100 WBC (Bld) 6 % Normal 2-11 [facility] Comment on above: Performed By: #### B MP, DIFF CBC ####[place] [id number] [place] [id number] [place] Neutrophils Auto (Bld) [#/Vo l]Ordered By: Denice Dahl on 09-01-2023 Neutrophils (Bld) [#/Vol] N/A [facility] Neutrophils/100 WBC Auto (Bl d)Ordered By: Denice Dahl on 09-01-2023 Neutrophils/100 WBC (Bld) N/A [facility] Nucleated erythrocytes [Pres ence] in Blood by Automated countOrdered By: Denice Dahl on 09-01-2023 Nucleated RBC Auto Ql (Bld) N/A [facility] Peripheral white blood cell differential % bands, microscopic examOrdered By: Denice Dahl on 09-01-2023 Band form neutrophils/100 WBC (Bld) 2 % Normal 0-5 [facility] Comment on above: Performed By: #### B MP, DIFF CBC ####[id number] [place] [address] [place] Platelet adequacy [Presence] in Blood by Light microscopyOrdered By: Denice Dahl on 09-01-2023 Platelets LM Ql (Bld) Normal Normal [facility] Platelet morphology finding [Identifier] in BloodOrdered By: Denice Dahl on 09-01-2023 Platelet morphology finding Nom (Bld) Normal Normal [facility] Polychromasia [Presence] in Blood by Light microscopyOrdered By: Denice Dahl on 09-01-2023 Polychromasia LM Ql (Bld) Slight [facility] RBC morphologyOrdered By: Ra chioma Dahl on 09-01-2023 RBC morphology finding Nom (Bld) N/A [facility] Glucose Poct Glucometerson 0 08-31-2023 Glucose [Mass/Vol] 400 mg/dL Off scale high Th e [facility] Comment on above: Result Comment: [facility] Glucose Reference Range is dependent on time and content of last meal. Glucose of more than 200 mg/dL in a nonstressed, ambulatory subject supports the diagnosis of Diabetes Mellitus.PERFORMED BY:[address] [place], [place] [phone] MEDICAL DIRECTORDEAN MCWILLIAMS M.D. Performed By: #### G LULS ####Point of Care testing, Glucose [Mass/Vol] 324 mg/dL Normal [facility] Comment on above: Result Comment: [facility] Glucose Reference Range is dependent on time and content of last meal. Glucose of more than 200 mg/dL in a nonstressed, ambulatory subject supports the diagnosis of Diabetes Mellitus.PERFORMED BY:[place] [address] [address] [place], [place] [phone] MEDICAL DIRECTORDEAN MCWILLIAMS M.D. Performed By: #### G LULS ####Point of Care testing, Glucose [Mass/Vol] 305 mg/dL Normal [facility] Comment on above: Result Comment: [facility] Glucose Reference Range is dependent on time and content of last meal. Glucose of more than 200 mg/dL in a nonstressed, ambulatory subject supports the diagnosis of Diabetes Mellitus.PERFORMED BY:[address] [place], [place] [phone] MEDICAL DIRECTORDEAN MCWILLIAMS M.D. Performed By: #### G LULS ####Point of Care testing, Glucose [Mass/Vol] 190 mg/dL Normal [facility] Comment on above: Result Comment: [facility] Glucose Reference Range is dependent on time and content of last meal. Glucose of more than 200 mg/dL in a nonstressed, ambulatory subject supports the diagnosis of Diabetes Mellitus.PERFORMED BY:[address] [place], [place] [phone] MEDICAL DIRECTORDEAN MCWILLIAMS M.D. Performed By: #### G LUELLIS ####Point of Care testing, Glucose [Mass/Vol] 310 mg/dL Normal [facility] Comment on above: Result Comment: [facility] Glucose Reference Range is dependent on time and content of last meal. Glucose of more than 200 mg/dL in a nonstressed, ambulatory subject supports the diagnosis of Diabetes Mellitus.PERFORMED BY:[address] [place], [place] [phone] MEDICAL DIRECTORDEAN MCWILLIAMS M.D. Performed By: #### G LUELLIS ####Point of Care testing, Alanine aminotransferase [En zymatic activity/volume] in Serum or PlasmaOrdered By: Denice Dahl on 08-30-2023 ALT [Catalytic activity/Vol] 18 U/L Normal 7-52 [facility] Comment on above: Performed By: #### C BC, CMP ####[id number] [place] [address] [place] Alkaline phosphatase [Enzyma tic activity/volume] in Serum or PlasmaOrdered By: Denice Massbenson on 08-30-2023 ALP [Catalytic activity/Vol] 49 U/L Normal 34-104 [facility] Comment on above: Performed By: #### C BC, CMP ####[address] [address] [facility] Aspartate aminotransferase [ Enzymatic activity/volume] in Serum or PlasmaOrdered By: Denice Massbenson on 08-30-2023 AST [Catalytic activity/Vol] 19 U/L Normal 13-39 [facility] Comment on above: Performed By: #### C BC, CMP ####[address] Bilirubin.total [Mass/volume ] in Serum or PlasmaOrdered By: Denice Dahl on 08-30-2023 Bilirubin [Mass/Vol] 0.6 mg/dL Normal 0.3-1.0 [facility] Comment on above: Performed By: #### C BC, CMP ####[address] Complete Blood Count Auto Di ffon 08-30-2023 Basophils (Bld) [#/Vol] 0.1 10*3/uL Normal 0.0-0.2 [facility] Comment on above: Result Comment: PERF ORMED BY:[address] [place], [place] [phone] MEDICAL DIRECTORDEAN MCWILLIAMS M.D. Performed By: #### C OXANA, CMP ####[address] Basophils/100 WBC (Bld) 0.8 % Normal . [facility] Comment on above: Performed By: #### C OXANA, CMP ####[address] Eosinophils (Bld) [#/Vol] 0.3 10*3/uL Normal 0.0-0.45 [facility] Comment on above: Performed By: #### C OXANA, CMP ####[address] Eosinophils/100 WBC (Bld) 4.5 % Normal . [facility] Comment on above: Performed By: #### C BC, CMP ####[address] Erythrocyte distribution width (RBC) [Ratio] 18.1 % High 12.0-14.8 [facility] Comment on above: Performed By: #### C BC, CMP ####[address] Hematocrit (Bld) [Volume fraction] 28.0 % Low 38.8-50.0 [facility] Comment on above: Performed By: #### C OXANA, CMP ####[address] Hemoglobin (Bld) [Mass/Vol] 9.2 g/dL Low 13.0-17.0 [facility] Comment on above: Performed By: #### C BC, CMP ####[address] Lymphocytes (Bld) [#/Vol] 1.3 10*3/uL Normal 1.00-4.8 [facility] Comment on above: Performed By: #### C OXANA, CMP ####[address] Lymphocytes/100 WBC (Bld) 20.1 % Normal . [facility] Comment on above: Performed By: #### C OXANA, CMP ####[address] MCH (RBC) [Entitic mass] 28.5 pg Normal 27.5-35.2 [facility] Comment on above: Performed By: #### C OXANA, CMP ####[address] MCV (RBC) [Entitic vol] 86.6 fL Normal 83.5-101 [facility] Comment on above: Performed By: #### C OXANA, CMP ####[address] Mean Corpuscular HGB Conc 32.9 g/dL Normal 32.5-35.6 [facility] Comment on above: Performed By: #### C OXANA, CMP ####[address] Monocytes (Bld) [#/Vol] 1.0 10*3/uL High 0.0-0.8 [facility] Comment on above: Performed By: #### C BC, CMP ####[address] Monocytes/100 WBC (Bld) 16.3 % Normal . [facility] Comment on above: Performed By: #### C BC, CMP ####[address] Neutrophils (Bld) [#/Vol] 3.6 10*3/uL Normal 1.8-7.7 [facility] Comment on above: Performed By: #### C BC, CMP ####[address] Neutrophils/100 WBC (Bld) 58.3 % Normal . [facility] Comment on above: Performed By: #### C BC, CMP ####[address] NRBC% 0.3 /100{WBC} Normal 0-0.5 [facility] Comment on above: Performed By: #### C BC, CMP ####[address] Platelet mean volume (Bld) [Entitic vol] 8.1 fL Normal 6.6-10.1 [facility] Comment on above: Performed By: #### C BC, CMP ####[address] Platelets (Bld) [#/Vol] 216 10*3/uL Normal 150-450 [facility] Comment on above: Performed By: #### C BC, CMP ####[address] RBC (Bld) [#/Vol] 3.23 10*6/uL Low 3.90-5.60 [facility] Comment on above: Performed By: #### C BC, CMP ####[address] WBC (Bld) [#/Vol] 6.3 10*3/uL Normal 4.1-10.5 [facility] Comment on above: Performed By: #### C BC, CMP ####[address] [address] [facility] Comprehensive Metabolic Pane raghu 08-30-2023 Albumin [Mass/Vol] 2.6 g/dL Low 3.5-5.7 [facility] Comment on above: Performed By: #### C BC, CMP ####[address] [address] [facility] Anion gap [Moles/Vol] 14.1 mmol/L Normal 6.0-15.0 Th e [facility] Comment on above: Performed By: #### C BC, CMP ####[address] [address] [facility] Calcium [Mass/Vol] 9.3 mg/dL Normal 8.6-10.3 [facility] Comment on above: Performed By: #### C BC, CMP ####[place] [id number] [facility] Chloride [Moles/Vol] 96 mmol/L Low 98-107 [facility] Comment on above: Performed By: #### C BC, CMP ####[place] [id number] [facility] CO2 [Moles/Vol] 25.2 mmol/L Normal 21.0-31.0 [facility] Comment on above: Performed By: #### C BC, CMP ####[address] [address] [facility] Creatinine [Mass/Vol] 6.91 mg/dL Significan t change up 0.70-1.30 [facility] Comment on above: Performed By: #### C BC, CMP ####[address] [address] [facility] Creatinine Clr Calc Pharmacy 12.36 Normal [facility] Comment on above: Result Comment: PERF ORMED BY:[place] [address] [place]ENNIFERHUS[place]INLAS [place], [place] [phone] MEDICAL JAKE MCWILLIAMS M.D. Performed By: #### C BC, CMP ####[place] [id number] [facility] GFR/1.73 sq M.predicted MDRD (S/P/Bld) [Vol rate/Area] 8.110 mL/min/{1.73_m2} Normal [facility] Comment on above: Performed By: #### C BC, CMP ####[place] [id number] [facility] Glucose [Mass/Vol] 246 mg/dL Significant change up 70-100 [facility] Comment on above: Result Comment: [facility] Glucose Reference Range is dependent on time and content of last meal. Glucose of more than 200 mg/dL in a nonstressed, ambulatory subject supports the diagnosis of Diabetes Mellitus. ADA recommended reference range Performed By: #### C OXANA, CMP ####[place] [id number] [facility] Potassium [Moles/Vol] 4.3 mmol/L Normal 3.5-5.1 [facility] Comment on above: Performed By: #### C OXANA, CMP ####[place] [id number] [facility] Sodium [Moles/Vol] 131 mmol/L Low 136-145 [facility] Comment on above: Performed By: #### C OXANA, CMP ####[place] [id number] [facility] Urea nitrogen [Mass/Vol] 22 mg/dL Normal 7-25 [facility] Comment on above: Performed By: #### C OXANA, CMP ####[place] [id number] [facility] Glucose Poct Glucometerson 0 - Commemt1 Normal [facility] Comment on above: Result Comment: Glu2 : WILL NOTIFY DR/FRANCIERFORMED BY:[address] [place], [place] [phone] MEDICAL DIRECTORDEAN MCWILLIAMS M.D. Performed By: #### G DARLENE ####Point of Care testing, Glucose [Mass/Vol] 484 mg/dL Off scale high Th e [facility] Comment on above: Result Comment: [facility] Glucose Reference Range is dependent on time and content of last meal. Glucose of more than 200 mg/dL in a nonstressed, ambulatory subject supports the diagnosis of Diabetes Mellitus. Performed By: #### G LULS ####Point of Care testing, Commemt1 Normal [facility] Comment on above: Result Comment: Glu2 : Will Repeat Test Performed By: #### G LULS ####Point of Care testing, Commemt2 WILL NOTIFY DR/LORE Normal [facility] Comment on above: Result Comment: PERF ORMED BY:[address] [place], [place] [phone] MEDICAL DIRECTORDEAN MCWILLIAMS M.D. Performed By: #### G LULS ####Point of Care testing, Glucose [Mass/Vol] 466 mg/dL Off scale high Th e [facility] Comment on above: Result Comment: [place] om Glucose Reference Range is dependent on time and content of last meal. Glucose of more than 200 mg/dL in a nonstressed, ambulatory subject supports the diagnosis of Diabetes Mellitus. Performed By: #### G LULS ####Point of Care testing, Commemt1 Normal [facility] Comment on above: Result Comment: Glu2 : Will Repeat Test Performed By: #### G LULS ####Point of Care testing, Commemt2 WILL NOTIFY DR/LORE Normal [facility] Comment on above: Result Comment: PERF ORMED BY:[address]odia[address], [place] [phone] MEDICAL DIRECTORDEAN MCWILLIAMS M.D. Performed By: #### G LULS ####Point of Care testing, Glucose [Mass/Vol] 475 mg/dL Off scale high Th e [facility] Comment on above: Result Comment: [place] om Glucose Reference Range is dependent on time and content of last meal. Glucose of more than 200 mg/dL in a nonstressed, ambulatory subject supports the diagnosis of Diabetes Mellitus. Performed By: #### G LULS ####Point of Care testing, Glucose [Mass/Vol] 529 mg/dL Off scale high Th e [facility] Comment on above: Result Comment: [place] om Glucose Reference Range is dependent on time and content of last meal. Glucose of more than 200 mg/dL in a nonstressed, ambulatory subject supports the diagnosis of Diabetes Mellitus. Performed By: #### G LUELLIS ####Point of Care testing, Glucose [Mass/Vol] 188 mg/dL Normal [facility] Comment on above: Result Comment: [place] Glucose Reference Range is dependent on time and content of last meal. Glucose of more than 200 mg/dL in a nonstressed, ambulatory subject supports the diagnosis of Diabetes Mellitus.PERFORMED BY:[address] RODRIGUEZBensonElodiaWALTON, [place] [phone] MEDICAL DIRECTORDEAN MCWILLIAMS M.D. Performed By: #### G DARLENE ####Point of Care testing, Glucose [Mass/Vol] 221 mg/dL Normal [facility] Comment on above: Result Comment: [facility] Glucose Reference Range is dependent on time and content of last meal. Glucose of more than 200 mg/dL in a nonstressed, ambulatory subject supports the diagnosis of Diabetes Mellitus.PERFORMED BY:[address] [place]ENW[place], [place] [phone] MEDICAL DIRECTORDEAN MCWILLIAMS M.D. Performed By: #### G DARLENE ####Point of Care testing, No Panel InformationOrdered By: Denice Dahl on 08-30-2023 Bedside Glucose #[address]/rn [facility] Protein [Mass/volume] in Ser um or PlasmaOrdered By: Denice Dahl on 08-30-2023 Protein [Mass/Vol] 6.3 g/dL Low 6.4-8.9 [facility] Comment on above: Performed By: #### C BC, CMP ####[address] [address] [facility] Serum globulin measurement b y calculation (mass/volume)Ordered By: Denice Dahl on 08-30-2023 Globulin (S) [Mass/Vol] 3.7 g/dL Normal [facility] Comment on above: Performed By: #### C BC, CMP ####[address] [address] [facility] Serum or plasma albumin/glob ulin mass ratioOrdered By: Denice Dahl on 08-30-2023 Albumin/Globulin [Mass ratio] 0.7 {ratio} Normal [facility] Comment on above: Performed By: #### C BC, CMP ####[place] [id number] [facility] Vancomycin [Mass/volume] in Serum or PlasmaOrdered By: Alon Santiago on 08-30-2023 Vancomycin [Mass/Vol] 18.2 ug/mL 5.0-20.0 [facility] Comment on above: Last dose: - Vancomycin,Randomon 08-30-19 24 Vancomycin,Random 18.2 ug/mL Normal 5.0-20.0 [facility] Comment on above: Order Comment: Date of last dose?: [id number] Time of last dose?: 1829 Result Comment: Last dose: -PERFORMED BY:[place] [address] [place], [place] [phone] MEDICAL DIRECTORDEAN MCWILLIAMS M.D. Performed By: #### V ANCR ####[place] [id number] [facility] C reactive protein [Mass/vol ume] in Serum or PlasmaOrdered By: Alfredo Acosta on 08-29-2023 CRP [Mass/Vol] 10.2 mg/dL High 0.0-0.5 [facility] C-Reactive Proteinon 024 C-Reactive Protein 10.2 mg/dL High 0.0-0.5 [facility] Comment on above: Result Comment: PERF ORMED BY:[place] [place], [place] [phone] MEDICAL DIRECTORDEAN MCWILLIAMS M.D. Performed By: #### C RP ####[address] [address] [facility] Comprehensive Metabolic Pane raghu 08-29-2023 Albumin [Mass/Vol] 2.6 g/dL Low 3.5-5.7 [facility] Comment on above: Performed By: #### S CAN CBC, CMP ####[address] [address] [facility] Albumin/Globulin [Mass ratio] 0.8 {ratio} Normal [facility] Comment on above: Performed By: #### S CAN CBC, CMP ####[address] [address] [facility] ALP [Catalytic activity/Vol] 55 U/L Normal 34-104 [facility] Comment on above: Performed By: #### S CAN CBC, CMP ####[address] [address] [facility] ALT [Catalytic activity/Vol] 21 U/L Normal 7-52 [facility] Comment on above: Performed By: #### S CAN CBC, CMP ####[address] [address] [facility] Anion gap [Moles/Vol] 10.9 mmol/L Normal 6.0-15.0 [facility] Comment on above: Performed By: #### S CAN CBC, CMP ####[place] [id number] [facility] AST [Catalytic activity/Vol] 23 U/L Normal 13-39 [facility] Comment on above: Performed By: #### S CAN CBC, CMP ####[place] [id number] [facility] Bilirubin [Mass/Vol] 0.6 mg/dL Normal 0.3-1.0 [facility] Comment on above: Performed By: #### S CAN CBC, CMP ####[place] [id number] [facility] Calcium [Mass/Vol] 8.7 mg/dL Normal 8.6-10.3 [facility] Comment on above: Performed By: #### S CAN CBC, CMP ####[address] [address] [facility] Chloride [Moles/Vol] 95 mmol/L Low 98-107 [facility] Comment on above: Performed By: #### S CAN CBC, CMP ####[address] [place] [address] [place] CO2 [Moles/Vol] 28.8 mmol/L Normal 21.0-31.0 [facility] Comment on above: Performed By: #### S CAN CBC, CMP ####[address] Creatinine [Mass/Vol] 4.98 mg/dL Significan t change up 0.70-1.30 [facility] Comment on above: Performed By: #### S CAN CBC, CMP ####[address] Creatinine Clr Calc Pharmacy 17.24 Normal [facility] Comment on above: Result Comment: PERF ORMED BY:[address] [place]enson[place]odiaW[place], [place] [phone] MEDICAL JAKE MCWILLIAMS M.D. Performed By: #### S CAN CBC, CMP ####[address] GFR/1.73 sq M.predicted MDRD (S/P/Bld) [Vol rate/Area] 12.016 mL/min/{1.73_m2} Normal [facility] Comment on above: Performed By: #### S CAN CBC, CMP ####[address] Globulin (S) [Mass/Vol] 3.2 g/dL Normal [facility] Comment on above: Performed By: #### S CAN CBC, CMP ####[address] Glucose [Mass/Vol] 391 mg/dL Significant change up 70-100 [facility] Comment on above: Result Comment: [place] Glucose Reference Range is dependent on time and content of last meal. Glucose of more than 200 mg/dL in a nonstressed, ambulatory subject supports the diagnosis of Diabetes Mellitus. ADA recommended reference range Performed By: #### S CAN CBC, CMP ####[address] Potassium [Moles/Vol] 4.7 mmol/L Normal 3.5-5.1 [facility] Comment on above: Performed By: #### S CAN CBC, CMP ####[place] [id number] Protein [Mass/Vol] 5.8 g/dL Low 6.4-8.9 [facility] Comment on above: Performed By: #### S CAN CBC, CMP ####[address] Sodium [Moles/Vol] 130 mmol/L Low 136-145 [facility] Comment on above: Performed By: #### S CAN CBC, CMP ####[address] Urea nitrogen [Mass/Vol] 16 mg/dL Normal 7-25 [facility] Comment on above: Performed By: #### S CAN CBC, CMP ####[address] Glucose Poct Glucometerson 0 08-29-2023 Glucose [Mass/Vol] 249 mg/dL Normal [facility] Comment on above: Result Comment: [place] om Glucose Reference Range is dependent on time and content of last meal. Glucose of more than 200 mg/dL in a nonstressed, ambulatory subject supports the diagnosis of Diabetes Mellitus.PERFORMED BY:[address] [place]odia[place], [place] [phone] MEDICAL DIRECTORDEAN MCWILLIAMS M.D. Performed By: #### G LULS ####Point of Care testing, Glucose [Mass/Vol] 300 mg/dL Normal [facility] Comment on above: Result Comment: [place] om Glucose Reference Range is dependent on time and content of last meal. Glucose of more than 200 mg/dL in a nonstressed, ambulatory subject supports the diagnosis of Diabetes Mellitus.PERFORMED BY:[address] [place], [place] [phone] PAIGE MCWILLIAMS M.D. Performed By: #### G LULS ####Point of Care testing, Commemt1 Normal [facility] Comment on above: Result Comment: Glu2 : WILL NOTIFY /FRANCIERFORMED BY:[place] [address] [address] [place]ADE[place], [place] [phone] MEDICAL DIRECTORDEAN MCWILLIAMS M.D. Performed By: #### G LULS ####Point of Care testing, Glucose [Mass/Vol] 421 mg/dL Off scale high Th e [facility] Comment on above: Result Comment: [place] om Glucose Reference Range is dependent on time and content of last meal. Glucose of more than 200 mg/dL in a nonstressed, ambulatory subject supports the diagnosis of Diabetes Mellitus. Performed By: #### G LULS ####Point of Care testing, Glucose [Mass/Vol] 312 mg/dL Normal [facility] Comment on above: Result Comment: [place] om Glucose Reference Range is dependent on time and content of last meal. Glucose of more than 200 mg/dL in a nonstressed, ambulatory subject supports the diagnosis of Diabetes Mellitus.PERFORMED BY:[address] [address] [place], [place] [phone] MEDICAL DIRECTORDEAN MCWILLIAMS M.D. Performed By: #### G LULS ####Point of Care testing, Glucose [Mass/Vol] 323 mg/dL Normal [facility] Comment on above: Result Comment: [place] om Glucose Reference Range is dependent on time and content of last meal. Glucose of more than 200 mg/dL in a nonstressed, ambulatory subject supports the diagnosis of Diabetes Mellitus.PERFORMED BY:[address] [place]AVALA[place]odiaADE[place], [place] [phone] MEDICAL JAKE MCWILLIAMS M.D. Performed By: #### G LULS ####Point of Care testing, Glucose [Mass/Vol] 324 mg/dL Normal [facility] Comment on above: Result Comment: [place] om Glucose Reference Range is dependent on time and content of last meal. Glucose of more than 200 mg/dL in a nonstressed, ambulatory subject supports the diagnosis of Diabetes Mellitus.PERFORMED BY:[address]IFER[address]enson[address]odiaADEFA[place], [place] [phone] MEDICAL DIRECTORDEAN MCWILLIAMS M.D. Performed By: #### G DARLENE ####Point of Care testing, Microcytes LM Ql (Bld)Ordere d By: Denice Dahl on 08-29-2023 Microcytes Ql (Bld) Slight [facility] Poikilocytosis [Presence] in Blood by Light microscopyOrdered By: Denice Dahl on 08-29-2023 Poikilocytosis LM Ql (Bld) Slight [facility] Scan and CBCon 08-29-2023 Anisocytosis Ql (Bld) Slight Normal [facility] Comment on above: Performed By: #### S CAN CBC, CMP ####[address] Basophils (Bld) [#/Vol] 0.0 10*3/uL Normal 0.0-0.2 [facility] Comment on above: Performed By: #### S CAN CBC, CMP ####[address] Basophils/100 WBC (Bld) 0.8 % Normal . [facility] Comment on above: Performed By: #### S CAN CBC, CMP ####[address] Eosinophils (Bld) [#/Vol] 0.1 10*3/uL Normal 0.0-0.45 [facility] Comment on above: Performed By: #### S CAN CBC, CMP ####[address] Eosinophils/100 WBC (Bld) 3.1 % Normal . [facility] Comment on above: Performed By: #### S CAN CBC, CMP ####[address] Erythrocyte distribution width (RBC) [Ratio] 18.2 % High 12.0-14.8 [facility] Comment on above: Performed By: #### S CAN CBC, CMP ####[address] Hematocrit (Bld) [Volume fraction] 27.3 % Low 38.8-50.0 [facility] Comment on above: Performed By: #### S CAN CBC, CMP ####[address] Hemoglobin (Bld) [Mass/Vol] 8.8 g/dL Low 13.0-17.0 [facility] Comment on above: Performed By: #### S CAN CBC, CMP ####[address] Lymphocytes (Bld) [#/Vol] 0.8 10*3/uL Low 1.00-4.8 [facility] Comment on above: Performed By: #### S CAN CBC, CMP ####[address] Lymphocytes/100 WBC (Bld) 15.7 % Normal . [facility] Comment on above: Performed By: #### S CAN CBC, CMP ####[address] MCH (RBC) [Entitic mass] 28.2 pg Normal 27.5-35.2 [facility] Comment on above: Performed By: #### S CAN CBC, CMP ####[address] MCV (RBC) [Entitic vol] 87.2 fL Normal 83.5-101 [facility] Comment on above: Performed By: #### S CAN CBC, CMP ####[address] Mean Corpuscular HGB Conc 32.3 g/dL Low 32.5-35.6 [facility] Comment on above: Performed By: #### S CAN CBC, CMP ####[address] Microcytosis Slight Normal [facility] Comment on above: Performed By: #### S CAN CBC, CMP ####[address] Monocytes (Bld) [#/Vol] 1.2 10*3/uL High 0.0-0.8 [facility] Comment on above: Performed By: #### S CAN CBC, CMP ####[address] Monocytes/100 WBC (Bld) 23.7 % Normal . [facility] Comment on above: Performed By: #### S CAN CBC, CMP ####[address] Neutrophils (Bld) [#/Vol] 2.8 10*3/uL Normal 1.8-7.7 [facility] Comment on above: Performed By: #### S CAN CBC, CMP ####[address] Neutrophils/100 WBC (Bld) 56.7 % Normal . [facility] Comment on above: Performed By: #### S CAN CBC, CMP ####[address] NRBC% 0.1 /100{WBC} Normal 0-0.5 [facility] Comment on above: Performed By: #### S CAN CBC, CMP ####[address] Platelet Estimate Normal Normal Normal [facility] Comment on above: Performed By: #### S CAN CBC, CMP ####[address] Platelet mean volume (Bld) [Entitic vol] 7.9 fL Normal 6.6-10.1 [facility] Comment on above: Performed By: #### S CAN CBC, CMP ####[place] [id number] [facility] Platelet Morphology Normal Normal Normal [facility] Comment on above: Result Comment: PERF ORMED BY:[address] [place], [place] [phone] MEDICAL DIRECTORDAEN MCWILLIAMS M.D. Performed By: #### S CAN CBC, CMP ####[address] [place] [address] [place] Platelets (Bld) [#/Vol] 234 10*3/uL Normal 150-450 [facility] Comment on above: Performed By: #### S CAN CBC, CMP ####[address] Poikilocytosis Slight Normal [facility] Comment on above: Performed By: #### S CAN CBC, CMP ####[address] RBC (Bld) [#/Vol] 3.13 10*6/uL Low 3.90-5.60 [facility] Comment on above: Performed By: #### S CAN CBC, CMP ####[address] WBC (Bld) [#/Vol] 4.9 10*3/uL Normal 4.1-10.5 [facility] Comment on above: Performed By: #### S CAN CBC, CMP ####[address] XR foot LT 2Von 08-29-2023 XR foot LT 2V Normal [facility] Aerobic Cultureon 08-28-2023 Aerobic Culture Normal [facility] Comment on above: Performed By: #### A ERC ####[address] Aerobic Culture Normal [facility] Comment on above: Performed By: #### A ERC ####[address] [place] cells [Presence] in Blo od by Light microscopyOrdered By: Denice Dahl on 08-28-2023 [place] cells LM Ql (Bld) Moderate Fi [facility] Comprehensive Metabolic Pane raghu 08-28-2023 Albumin [Mass/Vol] 3.0 g/dL Low 3.5-5.7 [facility] Comment on above: Performed By: #### D IFF CBC, CMP ####[address] Albumin/Globulin [Mass ratio] 0.8 {ratio} Normal [facility] Comment on above: Performed By: #### D IFF CBC, CMP ####[place] [id number] [facility] ALP [Catalytic activity/Vol] 53 U/L Normal 34-104 [facility] Comment on above: Performed By: #### D IFF CBC, CMP ####[place] [id number] [facility] ALT [Catalytic activity/Vol] 25 U/L Normal 7-52 [facility] Comment on above: Performed By: #### D IFF CBC, CMP ####[place] [id number] [facility] Anion gap [Moles/Vol] 14.5 mmol/L Normal 6.0-15.0 [facility] Comment on above: Performed By: #### D IFF CBC, CMP ####[address] AST [Catalytic activity/Vol] 42 U/L High 13-39 [facility] Comment on above: Performed By: #### D IFF CBC, CMP ####[place] [id number] [facility] Bilirubin [Mass/Vol] 0.6 mg/dL Normal 0.3-1.0 [facility] Comment on above: Performed By: #### D IFF CBC, CMP ####[place] [id number] [facility] Calcium [Mass/Vol] 9.7 mg/dL Normal 8.6-10.3 [facility] Comment on above: Performed By: #### D IFF CBC, CMP ####[place] [id number] [facility] Chloride [Moles/Vol] 97 mmol/L Low 98-107 [facility] Comment on above: Performed By: #### D IFF CBC, CMP ####[place] [id number] [facility] CO2 [Moles/Vol] 27.1 mmol/L Normal 21.0-31.0 [facility] Comment on above: Performed By: #### D IFF CBC, CMP ####[address] Creatinine [Mass/Vol] 7.97 mg/dL Significan t change up 0.70-1.30 [facility] Comment on above: Performed By: #### D IFF CBC, CMP ####[address] Creatinine Clr Calc Pharmacy 10.40 Normal [facility] Comment on above: Result Comment: PERF ORMED BY:[address] [place], [place] [phone] MEDICAL DIRECTORDEAN MCWILLIAMS M.D. Performed By: #### D IFF CBC, CMP ####[address] GFR/1.73 sq M.predicted MDRD (S/P/Bld) [Vol rate/Area] 6.833 mL/min/{1.73_m2} Normal [facility] Comment on above: Performed By: #### D IFF CBC, CMP ####[address] Globulin (S) [Mass/Vol] 3.8 g/dL Normal [facility] Comment on above: Performed By: #### D IFF CBC, CMP ####[address] Glucose [Mass/Vol] 61 mg/dL Low 70-100 [facility] Comment on above: Result Comment: [place] Glucose Reference Range is dependent on time and content of last meal. Glucose of more than 200 mg/dL in a nonstressed, ambulatory subject supports the diagnosis of Diabetes Mellitus. ADA recommended reference range Performed By: #### D IFF CBC, CMP ####[address] Potassium [Moles/Vol] 3.6 mmol/L Normal 3.5-5.1 [facility] Comment on above: Performed By: #### D IFF CBC, CMP ####[place] [id number] [facility] Protein [Mass/Vol] 6.8 g/dL Normal 6.4-8.9 [facility] Comment on above: Performed By: #### D IFF CBC, CMP ####[place] [id number] [facility] Sodium [Moles/Vol] 135 mmol/L Low 136-145 [facility] Comment on above: Performed By: #### D IFF CBC, CMP ####[address] Urea nitrogen [Mass/Vol] 29 mg/dL High 7-25 [facility] Comment on above: Performed By: #### D IFF CBC, CMP ####[address] Diff and CBCon 08-28-2023 Anisocytosis Ql (Bld) Slight Normal [facility] Comment on above: Performed By: #### D IFF CBC, CMP ####[address] Crenated RBC Moderate Normal [facility] Comment on above: Performed By: #### D IFF CBC, CMP ####[address] Eosinophils/100 WBC (Bld) 6 % High 1-3 [facility] Comment on above: Performed By: #### D IFF CBC, CMP ####[place] [id number] [facility] Erythrocyte distribution width (RBC) [Ratio] 18.0 % High 12.0-14.8 [facility] Comment on above: Performed By: #### D IFF CBC, CMP ####[place] [id number] [facility] Hematocrit (Bld) [Volume fraction] 28.2 % Low 38.8-50.0 [facility] Comment on above: Performed By: #### D IFF CBC, CMP ####[address] Hemoglobin (Bld) [Mass/Vol] 9.4 g/dL Low 13.0-17.0 [facility] Comment on above: Performed By: #### D IFF CBC, CMP ####[place] [id number] [facility] Lymphocytes/100 WBC (Bld) 13 % Low 18-42 [facility] Comment on above: Performed By: #### D IFF CBC, CMP ####[address] MCH (RBC) [Entitic mass] 28.7 pg Normal 27.5-35.2 [facility] Comment on above: Performed By: #### D IFF CBC, CMP ####[address] MCV (RBC) [Entitic vol] 85.8 fL Normal 83.5-101 [facility] Comment on above: Performed By: #### D IFF CBC, CMP ####[address] Mean Corpuscular HGB Conc 33.4 g/dL Normal 32.5-35.6 [facility] Comment on above: Performed By: #### D IFF CBC, CMP ####[place] [id number] [facility] Monocytes/100 WBC (Bld) 16 % High 2-11 [facility] Comment on above: Performed By: #### D IFF CBC, CMP ####[place] [id number] [facility] Myelocytes 1 % High 0-0 [facility] Comment on above: Performed By: #### D IFF CBC, CMP ####[place] [id number] [facility] Ovalocytes Slight Normal [facility] Comment on above: Performed By: #### D IFF CBC, CMP ####[address] Platelet Estimate Normal Normal Normal [facility] Comment on above: Result Comment: PERF ORMED BY:[address] [place], [place] [phone] MEDICAL DIRECTORDEAN MCWILLIAMS M.D. Performed By: #### D IFF CBC, CMP ####[place] [id number] [facility] Platelet mean volume (Bld) [Entitic vol] 7.8 fL Normal 6.6-10.1 [facility] Comment on above: Performed By: #### D IFF CBC, CMP ####[place] [id number] [facility] Platelet Morphology Normal Normal Normal [facility] Comment on above: Result Comment: PERF ORMED BY:[address] [place], [place] [phone] MEDICAL DIRECTORDEAN MCWILLIAMS M.D. Performed By: #### D IFF CBC, CMP ####[place] [id number] [facility] Platelets (Bld) [#/Vol] 246 10*3/uL Normal 150-450 [facility] Comment on above: Performed By: #### D IFF CBC, CMP ####[place] [id number] [facility] Poikilocytosis Moderate Normal [facility] Comment on above: Performed By: #### D IFF CBC, CMP ####[place] [id number] [facility] Polychromasia Slight Normal [facility] Comment on above: Performed By: #### D IFF CBC, CMP ####[place] [id number] [facility] RBC (Bld) [#/Vol] 3.28 10*6/uL Low 3.90-5.60 [facility] Comment on above: Performed By: #### D IFF CBC, CMP ####[place] [id number] [facility] Reactive Lymphocytes 3 % Normal 0-12 [facility] Comment on above: Performed By: #### D IFF CBC, CMP ####[id number] [place] [address] [facility] Segmented neutrophils/100 WBC (Bld) 62 % Normal 50-70 [facility] Comment on above: Performed By: #### D IFF CBC, CMP ####[address] [id number] [place] [address] [facility] WBC (Bld) [#/Vol] 6.1 10*3/uL Normal 4.1-10.5 [facility] Comment on above: Performed By: #### D IFF CBC, CMP ####[address] [address] [facility] Glucose Poct Glucometerson 0 08-28-2023 Commemt1 Normal [facility] Comment on above: Result Comment: Glu2 : WILL NOTIFY DR/RNPERFORMED BY:[address] [place], [place] [phone] MEDICAL DIRECTORDEAN MCWILLIAMS M.D. Performed By: #### G LULS ####Point of Care testing, Glucose [Mass/Vol] 419 mg/dL Off scale high Th e [facility] Comment on above: Result Comment: [place] om Glucose Reference Range is dependent on time and content of last meal. Glucose of more than 200 mg/dL in a nonstressed, ambulatory subject supports the diagnosis of Diabetes Mellitus. Performed By: #### G LULS ####Point of Care testing, Commemt1 Normal [facility] Comment on above: Result Comment: Glu2 : Will Repeat TestPERFORMED BY:[address] [place], [place] [phone] MEDICAL DIRECTORDEAN MCWILLIAMS M.D. Performed By: #### G LULS ####Point of Care testing, Glucose [Mass/Vol] 435 mg/dL Off scale high Th e [facility] Comment on above: Result Comment: [place] Glucose Reference Range is dependent on time and content of last meal. Glucose of more than 200 mg/dL in a nonstressed, ambulatory subject supports the diagnosis of Diabetes Mellitus. Performed By: #### G LULS ####Point of Care testing, Glucose [Mass/Vol] 297 mg/dL Normal [facility] Comment on above: Result Comment: [place] om Glucose Reference Range is dependent on time and content of last meal. Glucose of more than 200 mg/dL in a nonstressed, ambulatory subject supports the diagnosis of Diabetes Mellitus.PERFORMED BY:[address] [place], [place] [phone] MEDICAL DIRECTORDEAN MCWILLIAMS M.D. Performed By: #### G LULS ####Point of Care testing, Commemt1 Glu2: Cleaned Meter Normal [facility] Comment on above: Result Comment: PERF ORMED BY:[address] [place], [place] [phone] MEDICAL DIRECTORDEAN MCWILLIAMS M.D. Performed By: #### G LULS ####Point of Care testing, Glucose [Mass/Vol] 79 mg/dL Normal [facility] Comment on above: Result Comment: [place] om Glucose Reference Range is dependent on time and content of last meal. Glucose of more than 200 mg/dL in a nonstressed, ambulatory subject supports the diagnosis of Diabetes Mellitus. Performed By: #### G LULS ####Point of Care testing, Commemt1 Glu2: Cleaned Meter Normal [facility] Comment on above: Result Comment: PERF ORMED BY:[address] [place], [place] [phone] MEDICAL DIRECTORDEAN MCWILLIAMS M.D. Performed By: #### G LULS ####Point of Care testing, Glucose [Mass/Vol] 66 mg/dL Normal [facility] Comment on above: Result Comment: [place] om Glucose Reference Range is dependent on time and content of last meal. Glucose of more than 200 mg/dL in a nonstressed, ambulatory subject supports the diagnosis of Diabetes Mellitus. Performed By: #### G LULS ####Point of Care testing, Gram stain for investigation of transfusion reactionOrdered By: DAVID Pop on 08-28-2023 Microscopic observation Gram stain Nom (Unsp spec) Pseudomonas aeruginosa Abnormal [facility] Microscopic observation Gram stain Nom (Unsp spec) Methicillin Resis Staph Aureus Abnormal [facility] Myelocytes/100 WBC Manual cn t (Bld)Ordered By: Denice Meitalita on 08-28-2023 Myelocytes/100 WBC (Bld) 1 % High 0-0 [facility] Ovalocyte detectionOrdered B y: Denice Meitalita on 08-28-2023 Ovalocytes LM Ql (Bld) Slight [facility] Variant lymphocytes/100 WBC Manual cnt (Bld)Ordered By: Denice Fariabenson on 08-28-2023 Variant lymphocytes/100 WBC (Bld) 3 % 0-12 [facility] Comprehensive Metabolic Pane raghu 08-27-2023 Albumin [Mass/Vol] 2.7 g/dL Low 3.5-5.7 [facility] Comment on above: Performed By: #### C MP ####[place] [id number] [facility] Albumin/Globulin [Mass ratio] 0.7 {ratio} Normal [facility] Comment on above: Performed By: #### C MP ####[place] [id number] [facility] ALP [Catalytic activity/Vol] 50 U/L Normal 34-104 [facility] Comment on above: Performed By: #### C MP ####[address] [address] [facility] ALT [Catalytic activity/Vol] 22 U/L Normal 7-52 [facility] Comment on above: Performed By: #### C MP ####[address] [address] [facility] Anion gap [Moles/Vol] 11.1 mmol/L Normal 6.0-15.0 Th e [facility] Comment on above: Performed By: #### C MP ####[place] [id number] [facility] AST [Catalytic activity/Vol] 44 U/L High 13-39 [facility] Comment on above: Performed By: #### C MP ####[place] [id number] [facility] Bilirubin [Mass/Vol] 0.6 mg/dL Normal 0.3-1.0 [facility] Comment on above: Performed By: #### C MP ####[place] [id number] [facility] Calcium [Mass/Vol] 8.9 mg/dL Normal 8.6-10.3 [facility] Comment on above: Performed By: #### C MP ####[address] Chloride [Moles/Vol] 96 mmol/L Low 98-107 [facility] Comment on above: Performed By: #### C MP ####[address] CO2 [Moles/Vol] 29.7 mmol/L Normal 21.0-31.0 [facility] Comment on above: Performed By: #### C MP ####[place] [id number] [facility] Creatinine [Mass/Vol] 6.05 mg/dL Significan t change up 0.70-1.30 [facility] Comment on above: Performed By: #### C MP ####[place] [id number] [facility] Creatinine Clr Calc Pharmacy 13.71 Normal [facility] Comment on above: Result Comment: PERF ORMED BY:[address] [place], [place] [phone] MEDICAL JAKE MCWILLIAMS M.D. Performed By: #### C MP ####[place] [phone] [facility] GFR/1.73 sq M.predicted MDRD (S/P/Bld) [Vol rate/Area] 9.513 mL/min/{1.73_m2} Normal [facility] Comment on above: Performed By: #### C MP ####[place] [id number] [place] Globulin (S) [Mass/Vol] 3.7 g/dL Normal [facility] Comment on above: Performed By: #### C MP ####[address] Glucose [Mass/Vol] 124 mg/dL High 70-100 [facility] Comment on above: Result Comment: [place] Glucose Reference Range is dependent on time and content of last meal. Glucose of more than 200 mg/dL in a nonstressed, ambulatory subject supports the diagnosis of Diabetes Mellitus. ADA recommended reference range Performed By: #### C MP ####[address] Potassium [Moles/Vol] 3.8 mmol/L Normal 3.5-5.1 [facility] Comment on above: Performed By: #### C MP ####[address] Protein [Mass/Vol] 6.4 g/dL Normal 6.4-8.9 [facility] Comment on above: Performed By: #### C MP ####[address] Sodium [Moles/Vol] 133 mmol/L Low 136-145 [facility] Comment on above: Performed By: #### C MP ####[address] Urea nitrogen [Mass/Vol] 23 mg/dL Normal 7-25 [facility] Comment on above: Performed By: #### C MP ####[place] [id number] [facility] Diff and CBCon 08-27-2023 Anisocytosis Ql (Bld) Slight Normal [facility] Comment on above: Performed By: #### D IFF CBC, ESR ####[place] [id number] [facility] Band form neutrophils/100 WBC (Bld) 9 % High 0-5 [facility] Comment on above: Performed By: #### D IFF CBC, ESR ####[place] [id number] [place] Basophils/100 WBC (Bld) 1 % Normal 0-2 [facility] Comment on above: Performed By: #### D IFF CBC, ESR ####[address] Crenated RBC Slight Normal [facility] Comment on above: Performed By: #### D IFF CBC, ESR ####[address] Eosinophils/100 WBC (Bld) 1 % Normal 1-3 [facility] Comment on above: Performed By: #### D IFF CBC, ESR ####[address] Erythrocyte distribution width (RBC) [Ratio] 18.1 % High 12.0-14.8 [facility] Comment on above: Performed By: #### D IFF CBC, ESR ####[address] Hematocrit (Bld) [Volume fraction] 27.6 % Low 38.8-50.0 [facility] Comment on above: Performed By: #### D IFF CBC, ESR ####[address] Hemoglobin (Bld) [Mass/Vol] 9.1 g/dL Low 13.0-17.0 [facility] Comment on above: Performed By: #### D IFF CBC, ESR ####[address] Lymphocytes/100 WBC (Bld) 15 % Low 18-42 [facility] Comment on above: Performed By: #### D IFF CBC, ESR ####[address] MCH (RBC) [Entitic mass] 28.5 pg Normal 27.5-35.2 [facility] Comment on above: Performed By: #### D IFF CBC, ESR ####[address] MCV (RBC) [Entitic vol] 86.5 fL Normal 83.5-101 [facility] Comment on above: Performed By: #### D IFF CBC, ESR ####[place] [id number] [facility] [facility] Mean Corpuscular HGB Conc 32.9 g/dL Normal 32.5-35.6 [facility] Comment on above: Performed By: #### D IFF CBC, ESR ####[place] [id number] [facility] Monocytes/100 WBC (Bld) 24 % High 2-11 [facility] Comment on above: Performed By: #### D IFF CBC, ESR ####[place] [id number] [facility] Ovalocytes Slight Normal [facility] Comment on above: Performed By: #### D IFF CBC, ESR ####[place] [id number] [facility] Platelet Estimate Normal Normal Normal [facility] Comment on above: Performed By: #### D IFF CBC, ESR ####[address] [address] [facility] Platelet mean volume (Bld) [Entitic vol] 8.0 fL Normal 6.6-10.1 [facility] Comment on above: Performed By: #### D IFF CBC, ESR ####[place] [id number] [facility] Platelet Morphology Normal Normal Normal [facility] Comment on above: Performed By: #### D IFF CBC, ESR ####[place] [id number] [facility] Platelets (Bld) [#/Vol] 238 10*3/uL Normal 150-450 [facility] Comment on above: Performed By: #### D IFF CBC, ESR ####[place] [id number] [facility] Poikilocytosis Slight Normal [facility] Comment on above: Performed By: #### D IFF CBC, ESR ####[address] [place] [address] [place] Polychromasia Slight Normal [facility] Comment on above: Performed By: #### D IFF CBC, ESR ####[address] RBC (Bld) [#/Vol] 3.19 10*6/uL Low 3.90-5.60 [facility] Comment on above: Performed By: #### D IFF CBC, ESR ####[address] Rouleaux Slight Normal [facility] Comment on above: Performed By: #### D IFF CBC, ESR ####[address] Segmented neutrophils/100 WBC (Bld) 51 % Normal 50-70 [facility] Comment on above: Performed By: #### D IFF CBC, ESR ####[address] Tear Drop Cells Slight Normal [facility] Comment on above: Performed By: #### D IFF CBC, ESR ####[address] WBC (Bld) [#/Vol] 6.1 10*3/uL Normal 4.1-10.5 [facility] Comment on above: Performed By: #### D IFF CBC, ESR ####[address] Erythrocyte Sedimentation Ra kunal 08-27-2023 ESR (Bld) [Velocity] 103 mm/h High 0-19 [facility] Comment on above: Result Comment: PERF ORMED BY:[address] [place], [place] [phone] MEDICAL JAKE MCWILLIAMS M.D. Performed By: #### D IFF CBC, ESR ####[place] [id number] [facility] Erythrocyte sedimentation ra te by Photometric methodOrdered By: Denice Dahl on 08-27-2023 ESR Photometric method (Bld) [Velocity] 103 mm/hr High 0-19 [facility] Glucose Poct Glucometerson 0 08-27-2023 Glucose [Mass/Vol] 335 mg/dL Normal [facility] Comment on above: Result Comment: [place] om Glucose Reference Range is dependent on time and content of last meal. Glucose of more than 200 mg/dL in a nonstressed, ambulatory subject supports the diagnosis of Diabetes Mellitus.PERFORMED BY:[place] [address] [address] [place], [place] [phone] MEDICAL DIRECTORDEAN MCWILLIAMS M.D. Performed By: #### G LULS ####Point of Care testing, Glucose [Mass/Vol] 380 mg/dL Normal [facility] Comment on above: Result Comment: [place] om Glucose Reference Range is dependent on time and content of last meal. Glucose of more than 200 mg/dL in a nonstressed, ambulatory subject supports the diagnosis of Diabetes Mellitus.PERFORMED BY:[place] [address] [place], [place] [phone] MEDICAL DIRECTORDEAN MCWILLIAMS M.D. Performed By: #### G LULS ####Point of Care testing, Commemt1 Glu2: Cleaned Meter Normal [facility] Comment on above: Result Comment: PERF ORMED BY:[place] [address] [place], [place] [phone] MEDICAL DIRECTORDEAN MCWILLIAMS M.D. Performed By: #### G LULS ####Point of Care testing, Glucose [Mass/Vol] 154 mg/dL Normal [facility] Comment on above: Result Comment: [place] om Glucose Reference Range is dependent on time and content of last meal. Glucose of more than 200 mg/dL in a nonstressed, ambulatory subject supports the diagnosis of Diabetes Mellitus. Performed By: #### G LULS ####Point of Care testing, Commemt1 Glu2: Cleaned Meter Normal [facility] Comment on above: Result Comment: PERF ORMED BY:[address] [place], [place] [phone] MEDICAL DIRECTORDEAN MCWILLIAMS M.D. Performed By: #### G JOSHLS ####Point of Care testing, Glucose [Mass/Vol] 130 mg/dL Normal [facility] Comment on above: Result Comment: [place] Glucose Reference Range is dependent on time and content of last meal. Glucose of more than 200 mg/dL in a nonstressed, ambulatory subject supports the diagnosis of Diabetes Mellitus. Performed By: #### G LULS ####Point of Care testing, MR foot RT wo conon 08-27-19 24 MR foot RT wo con Normal [facility] Rouleaux detectionOrdered By : Denice Dahl on 08-27-2023 Rouleaux LM Ql (Bld) Slight [facility] Teardrop cell detectionOrder ed By: Denice Dahl on 08-27-2023 Dacrocytes LM Ql (Bld) Slight [facility] A1C with Estimated Average G luon 08-26-2023 Glucose [Mass/Vol] 209 mg/dL Normal [facility] Comment on above: Result Comment: PERF ORMED BY:[place] [address] [place], [place] [phone] MEDICAL DIRECTORDEAN MCWILLIAMS M.D. Performed By: #### A 1C WTH eA ####[address] [address] [facility] Bacteria identified Aer cx N om (Unsp spec)Ordered By: Denice Dahl on 08-26-2023 Superficial Wound Culture Proteus mirabilis Abnormal [facility] C-Reactive Proteinon 024 C-Reactive Protein 27.4 mg/dL High 0.0-0.5 [facility] Comment on above: Result Comment: PERF ORMED BY:[place] [address] [place], [place] [phone] MEDICAL JAKE MCWILLIAMS M.D. Performed By: #### C RP, ESR, CMP, CBC, MG ####[address] [address] [facility] Complete Blood Count Auto Di ffon 08-26-2023 Basophils (Bld) [#/Vol] 0.1 10*3/uL Normal 0.0-0.2 [facility] Comment on above: Performed By: #### C RP, ESR, CMP, CBC, MG ####[address] Basophils/100 WBC (Bld) 0.7 % Normal . [facility] Comment on above: Performed By: #### C RP, ESR, CMP, CBC, MG ####[address] Eosinophils (Bld) [#/Vol] 0.1 10*3/uL Normal 0.0-0.45 [facility] Comment on above: Performed By: #### C RP, ESR, CMP, CBC, MG ####[address] Eosinophils/100 WBC (Bld) 1.2 % Normal . [facility] Comment on above: Performed By: #### C RP, ESR, CMP, CBC, MG ####[address] Erythrocyte distribution width (RBC) [Ratio] 18.3 % High 12.0-14.8 [facility] Comment on above: Performed By: #### C RP, ESR, CMP, CBC, MG ####[address] Hematocrit (Bld) [Volume fraction] 30.9 % Low 38.8-50.0 [facility] Comment on above: Performed By: #### C RP, ESR, CMP, CBC, MG ####[address] Hemoglobin (Bld) [Mass/Vol] 10.2 g/dL Low 13.0-17.0 [facility] Comment on above: Performed By: #### C RP, ESR, CMP, CBC, MG ####[address] Lymphocytes (Bld) [#/Vol] 0.3 10*3/uL Low 1.00-4.8 [facility] Comment on above: Performed By: #### C RP, ESR, CMP, CBC, MG ####[address] Lymphocytes/100 WBC (Bld) 3.7 % Normal . [facility] Comment on above: Performed By: #### C RP, ESR, CMP, CBC, MG ####[address] MCH (RBC) [Entitic mass] 28.4 pg Normal 27.5-35.2 [facility] Comment on above: Performed By: #### C RP, ESR, CMP, CBC, MG ####[address] MCV (RBC) [Entitic vol] 86.3 fL Normal 83.5-101 [facility] Comment on above: Performed By: #### C RP, ESR, CMP, CBC, MG ####[address] Mean Corpuscular HGB Conc 32.9 g/dL Normal 32.5-35.6 [facility] Comment on above: Performed By: #### C RP, ESR, CMP, CBC, MG ####[address] Monocytes (Bld) [#/Vol] 0.9 10*3/uL High 0.0-0.8 [facility] Comment on above: Performed By: #### C RP, ESR, CMP, CBC, MG ####[address] Monocytes/100 WBC (Bld) 10.7 % Normal . [facility] Comment on above: Performed By: #### C RP, ESR, CMP, CBC, MG ####[address] Neutrophils (Bld) [#/Vol] 7.1 10*3/uL Normal 1.8-7.7 [facility] Comment on above: Performed By: #### C RP, ESR, CMP, CBC, MG ####[address] Neutrophils/100 WBC (Bld) 83.7 % Normal . [facility] Comment on above: Performed By: #### C RP, ESR, CMP, CBC, MG ####[address] NRBC% 0.0 /100{WBC} Normal 0-0.5 [facility] Comment on above: Performed By: #### C RP, ESR, CMP, CBC, MG ####[address] Platelet mean volume (Bld) [Entitic vol] 7.7 fL Normal 6.6-10.1 [facility] Comment on above: Performed By: #### C RP, ESR, CMP, CBC, MG ####[address] Platelets (Bld) [#/Vol] 226 10*3/uL Normal 150-450 [facility] Comment on above: Performed By: #### C RP, ESR, CMP, CBC, MG ####[address] RBC (Bld) [#/Vol] 3.58 10*6/uL Low 3.90-5.60 [facility] Comment on above: Performed By: #### C RP, ESR, CMP, CBC, MG ####[address] WBC (Bld) [#/Vol] 8.5 10*3/uL Normal 4.1-10.5 [facility] Comment on above: Performed By: #### C RP, ESR, CMP, CBC, MG ####[address] Comprehensive Metabolic Pane raghu 08-26-2023 Albumin [Mass/Vol] 3.0 g/dL Low 3.5-5.7 [facility] Comment on above: Performed By: #### C RP, ESR, CMP, CBC, MG ####[place] [id number] [place] [id number] [facility] Albumin/Globulin [Mass ratio] 0.8 {ratio} Normal [facility] Comment on above: Performed By: #### C RP, ESR, CMP, CBC, MG ####[place] [id number] [place] [id number] [facility] ALP [Catalytic activity/Vol] 62 U/L Normal 34-104 [facility] Comment on above: Performed By: #### C RP, ESR, CMP, CBC, MG ####[place] [id number] [facility] ALT [Catalytic activity/Vol] 15 U/L Normal 7-52 [facility] Comment on above: Performed By: #### C RP, ESR, CMP, CBC, MG ####[address] Anion gap [Moles/Vol] 17.3 mmol/L High 6.0-15.0 [facility] Comment on above: Performed By: #### C RP, ESR, CMP, CBC, MG ####[place] [id number] [facility] AST [Catalytic activity/Vol] 29 U/L Normal 13-39 [facility] Comment on above: Performed By: #### C RP, ESR, CMP, CBC, MG ####[place] [id number] [facility] Bilirubin [Mass/Vol] 0.8 mg/dL Normal 0.3-1.0 [facility] Comment on above: Performed By: #### C RP, ESR, CMP, CBC, MG ####[place] [id number] [facility] Calcium [Mass/Vol] 9.5 mg/dL Normal 8.6-10.3 [facility] Comment on above: Performed By: #### C RP, ESR, CMP, CBC, MG ####[place] [id number] [facility] Chloride [Moles/Vol] 92 mmol/L Low 98-107 [facility] Comment on above: Performed By: #### C RP, ESR, CMP, CBC, MG ####[address] CO2 [Moles/Vol] 28.9 mmol/L Normal 21.0-31.0 [facility] Comment on above: Performed By: #### C RP, ESR, CMP, CBC, MG ####[address] Creatinine [Mass/Vol] 10.52 mg/dL Significan t change up 0.70-1.30 [facility] Comment on above: Performed By: #### C RP, ESR, CMP, CBC, MG ####[address] Creatinine Clr Calc Pharmacy 7.26 Normal [facility] Comment on above: Performed By: #### C RP, ESR, CMP, CBC, MG ####[address] GFR/1.73 sq M.predicted MDRD (S/P/Bld) [Vol rate/Area] 4.898 mL/min/{1.73_m2} Normal [facility] Comment on above: Performed By: #### C RP, ESR, CMP, CBC, MG ####[address] Globulin (S) [Mass/Vol] 3.8 g/dL Normal [facility] Comment on above: Performed By: #### C RP, ESR, CMP, CBC, MG ####[address] Glucose [Mass/Vol] 174 mg/dL Significant change up 70-100 [facility] Comment on above: Result Comment: [place] Glucose Reference Range is dependent on time and content of last meal. Glucose of more than 200 mg/dL in a nonstressed, ambulatory subject supports the diagnosis of Diabetes Mellitus. ADA recommended reference range Performed By: #### C RP, ESR, CMP, CBC, MG ####[place] [id number] [place] Potassium [Moles/Vol] 5.2 mmol/L High 3.5-5.1 [facility] Comment on above: Performed By: #### C RP, ESR, CMP, CBC, MG ####[place] [id number] Protein [Mass/Vol] 6.8 g/dL Normal 6.4-8.9 [facility] Comment on above: Performed By: #### C RP, ESR, CMP, CBC, MG ####[address] Sodium [Moles/Vol] 133 mmol/L Significant change down 136-145 [facility] Comment on above: Performed By: #### C RP, ESR, CMP, CBC, MG ####[address] Urea nitrogen [Mass/Vol] 45 mg/dL High 7-25 [facility] Comment on above: Performed By: #### C RP, ESR, CMP, CBC, MG ####[address] ECG 12 lead ECGon 08-26-2023 ECG 12 lead ECG Normal [facility] Erythrocyte Sedimentation Ra kunal 08-26-2023 ESR (Bld) [Velocity] 86 mm/h High 0-19 [facility] Comment on above: Result Comment: PERF ORMED BY:[place] [address] [place], [place] [phone] MEDICAL JAKE MCWILLIAMS M.D. Performed By: #### C RP, ESR, CMP, CBC, MG ####[place] [id number] [facility] Glucose Poct Glucometerson 0 08-26-2023 Glucose [Mass/Vol] 360 mg/dL Normal [facility] Comment on above: Result Comment: [facility] Glucose Reference Range is dependent on time and content of last meal. Glucose of more than 200 mg/dL in a nonstressed, ambulatory subject supports the diagnosis of Diabetes Mellitus.PERFORMED BY:[place] [address] [place], [place] [phone] MEDICAL DIRECTORDEAN MCWILLIAMS M.D. Performed By: #### G LULS ####Point of Care testing, Glucose [Mass/Vol] 111 mg/dL Normal [facility] Comment on above: Result Comment: [place] om Glucose Reference Range is dependent on time and content of last meal. Glucose of more than 200 mg/dL in a nonstressed, ambulatory subject supports the diagnosis of Diabetes Mellitus.PERFORMED BY:[address] [place], [place] [phone] MEDICAL DIRECTORDEAN MCWILLIAMS M.D. Performed By: #### G LULS ####Point of Care testing, Commemt1 Glu2: Cleaned Meter Normal [facility] Comment on above: Result Comment: PERF ORMED BY:[address] [place], [place] [phone] MEDICAL DIRECTORDEAN MCWILLIAMS M.D. Performed By: #### G LULS ####Point of Care testing, Glucose [Mass/Vol] 162 mg/dL Normal [facility] Comment on above: Result Comment: [place] om Glucose Reference Range is dependent on time and content of last meal. Glucose of more than 200 mg/dL in a nonstressed, ambulatory subject supports the diagnosis of Diabetes Mellitus. Performed By: #### G LULS ####Point of Care testing, Commemt1 Glu2: Cleaned Meter Normal [facility] Comment on above: Result Comment: PERF ORMED BY:[address] [place], [place] [phone] MEDICAL DIRECTORDEAN MCWILLIAMS M.D. Performed By: #### G LULS ####Point of Care testing, Glucose [Mass/Vol] 171 mg/dL Normal [facility] Comment on above: Result Comment: [place] om Glucose Reference Range is dependent on [...] from glycated hemoglobin (Bld) [Mass/Vol] 209 mg/dL [facility] Hemoglobin A1c percentageOrd ered By: Alon Santiago on 08-26-2023 HbA1c (Bld) [Mass fraction] 8.9 % High 4.3-5.6 [facility] Comment on above: Increased risk for d iabetes: 5.7 - 6.4diabetes: >6.4glycemic control for adults with diabetes: <7.0 Result Comment: Incr eased risk for diabetes: 5.7 - 6.4 diabetes: >6.4 glycemic control for adults with diabetes: <7.0 Performed By: #### A 1C WT eA ####[address] Magnesium [Mass/volume] in S bushra or PlasmaOrdered By: Alon Santiago on 08-26-2023 Magnesium [Mass/Vol] 2.1 mg/dL Normal 1.9-2.7 [facility] Comment on above: Performed By: #### C RP, ESR, CMP, CBC, MG ####[facility] [id number] [place] [id number] [facility] Superficial Wound Cultureon 08-26-2023 Superficial Wound Culture Normal [facility] Comment on above: Performed By: #### C USUP ####[address] US arterial pvr rest Amber US arterial pvr rest LE Normal [facility] US venous duplex LE BIon US venous duplex LE BI Normal Th e [facility] Bacterial blood cultureOrder ed By: Alon Santiago on 08-25-2023 Bacteria identified Cx Nom (Bld) NO GROWTH 5 DAYS [facility] Bacteria identified Cx Nom (Bld) NO GROWTH 5 DAYS [facility] Blood Cultureon 08-25-2023 Bacteria identified Cx Nom (Bld) NO GROWTH 5 DAYS PERFORMED BY: [address] [place] [id number] PATHOLOGIST LEAK PATCHER DEAN MCWILLIAMS M.D. Normal [facility] Comment on above: Performed By: #### C UBLD ####[address] Bacteria identified Cx Nom (Bld) NO GROWTH 5 DAYS PERFORMED BY: [address] [place] [address] PATHOLOGIST LEAK PATCHER DEAN MCWILLIAMS M.D. Normal [facility] Comment on above: Performed By: #### C UBLD ####[address] Complete Blood Count Auto Di ffon 08-25-2023 Basophils (Bld) [#/Vol] 0.0 10*3/uL Normal 0.0-0.2 [facility] Comment on above: Result Comment: PERF ORMED BY:[address] [place], [place] [phone] MEDICAL DIRECTORDEAN MCWILLIAMS M.D. Performed By: #### C MP, CBC ####[address] Basophils/100 WBC (Bld) 0.5 % Normal . [facility] Comment on above: Performed By: #### C MP, CBC ####[address] Eosinophils (Bld) [#/Vol] 0.0 10*3/uL Normal 0.0-0.45 [facility] Comment on above: Performed By: #### C MP, CBC ####[address] Eosinophils/100 WBC (Bld) 0.2 % Normal . [facility] Comment on above: Performed By: #### C MP, CBC ####[address] Erythrocyte distribution width (RBC) [Ratio] 18.3 % High 12.0-14.8 [facility] Comment on above: Performed By: #### C MP, CBC ####[address] Hematocrit (Bld) [Volume fraction] 30.5 % Low 38.8-50.0 [facility] Comment on above: Performed By: #### C MP, CBC ####[address] Hemoglobin (Bld) [Mass/Vol] 9.8 g/dL Low 13.0-17.0 [facility] Comment on above: Performed By: #### C MP, CBC ####[address] Lymphocytes (Bld) [#/Vol] 0.3 10*3/uL Low 1.00-4.8 [facility] Comment on above: Performed By: #### C MP, CBC ####[address] Lymphocytes/100 WBC (Bld) 3.4 % Normal . [facility] Comment on above: Performed By: #### C MP, CBC ####[address] MCH (RBC) [Entitic mass] 28.0 pg Normal 27.5-35.2 [facility] Comment on above: Performed By: #### C MP, CBC ####[address] MCV (RBC) [Entitic vol] 87.9 fL Normal 83.5-101 [facility] Comment on above: Performed By: #### C MP, CBC ####[address] Mean Corpuscular HGB Conc 31.9 g/dL Low 32.5-35.6 [facility] Comment on above: Performed By: #### C MP, CBC ####[address] Monocytes (Bld) [#/Vol] 0.9 10*3/uL High 0.0-0.8 [facility] Comment on above: Performed By: #### C MP, CBC ####[address] Monocytes/100 WBC (Bld) 11.1 % Normal . [facility] Comment on above: Performed By: #### C MP, CBC ####[address] Neutrophils (Bld) [#/Vol] 6.9 10*3/uL Normal 1.8-7.7 [facility] Comment on above: Performed By: #### C MP, CBC ####[address] Neutrophils/100 WBC (Bld) 84.8 % Normal . [facility] Comment on above: Performed By: #### C MP, CBC ####[address] NRBC% 0.0 /100{WBC} Normal 0-0.5 [facility] Comment on above: Performed By: #### C MP, CBC ####[address] Platelet mean volume (Bld) [Entitic vol] 7.8 fL Normal 6.6-10.1 [facility] Comment on above: Performed By: #### C MP, CBC ####[address] Platelets (Bld) [#/Vol] 236 10*3/uL Normal 150-450 [facility] Comment on above: Performed By: #### C MP, CBC ####[place] [id number] [facility] RBC (Bld) [#/Vol] 3.48 10*6/uL Low 3.90-5.60 [facility] Comment on above: Performed By: #### C MP, CBC ####[address] WBC (Bld) [#/Vol] 8.1 10*3/uL Normal 4.1-10.5 [facility] Comment on above: Performed By: #### C MP, CBC ####[place] [id number] [facility] Comprehensive Metabolic Pane raghu 08-25-2023 Albumin [Mass/Vol] 3.3 g/dL Low 3.5-5.7 [facility] Comment on above: Performed By: #### C MP, CBC ####[place] [id number] [facility] Albumin/Globulin [Mass ratio] 0.8 {ratio} Normal [facility] Comment on above: Performed By: #### C MP, CBC ####[place] [id number] [facility] ALP [Catalytic activity/Vol] 66 U/L Normal 34-104 [facility] Comment on above: Performed By: #### C MP, CBC ####[place] [id number] [facility] ALT [Catalytic activity/Vol] 11 U/L Normal 7-52 [facility] Comment on above: Performed By: #### C MP, CBC ####[place] [id number] [facility] Anion gap [Moles/Vol] 16.6 mmol/L High 6.0-15.0 [facility] e [facility] Comment on above: Performed By: #### C MP, CBC ####[place] [id number] [facility] AST [Catalytic activity/Vol] 17 U/L Normal 13-39 [facility] Comment on above: Performed By: #### C MP, CBC ####[place] [id number] [facility] Bilirubin [Mass/Vol] 0.8 mg/dL Normal 0.3-1.0 [facility] Comment on above: Performed By: #### C MP, CBC ####[place] [id number] [facility] Calcium [Mass/Vol] 10.0 mg/dL Normal 8.6-10.3 [facility] Comment on above: Performed By: #### C MP, CBC ####[address] [address] [facility] Chloride [Moles/Vol] 90 mmol/L Low 98-107 [facility] Comment on above: Performed By: #### C MP, CBC ####[address] [address] [facility] CO2 [Moles/Vol] 25.8 mmol/L Normal 21.0-31.0 [facility] Comment on above: Performed By: #### C MP, CBC ####[address] [address] [facility] Creatinine [Mass/Vol] 8.91 mg/dL High 0.70-1.30 [facility] Comment on above: Performed By: #### C MP, CBC ####[address] [address] [facility] Creatinine Clr Calc Pharmacy 9.28 Normal [facility] [facility] Comment on above: Result Comment: PERF ORMED BY:[address] [place], [place] [phone] MEDICAL JAKE MCWILLIAMS M.D. Performed By: #### C MP, CBC ####[address] [address] [facility] GFR/1.73 sq M.predicted MDRD (S/P/Bld) [Vol rate/Area] 5.978 mL/min/{1.73_m2} Normal [facility] Comment on above: Performed By: #### C MP, CBC ####[address] [address] [facility] Globulin (S) [Mass/Vol] 4.3 g/dL Normal [facility] Comment on above: Performed By: #### C MP, CBC ####[place] [id number] [facility] Glucose [Mass/Vol] 428 mg/dL High 70-100 [facility] Comment on above: Result Comment: [place] Glucose Reference Range is dependent on time and content of last meal. Glucose of more than 200 mg/dL in a nonstressed, ambulatory subject supports the diagnosis of Diabetes Mellitus. ADA recommended reference range Performed By: #### C MP, CBC ####[place] [id number] [facility] Potassium [Moles/Vol] 5.4 mmol/L High 3.5-5.1 [facility] Comment on above: Performed By: #### C MP, CBC ####[place] [id number] [facility] Protein [Mass/Vol] 7.6 g/dL Normal 6.4-8.9 [facility] Comment on above: Performed By: #### C MP, CBC ####[place] [id number] [facility] Sodium [Moles/Vol] 127 mmol/L Low 136-145 [facility] Comment on above: Performed By: #### C MP, CBC ####[place] [id number] [facility] Urea nitrogen [Mass/Vol] 37 mg/dL High 7-25 [facility] Comment on above: Performed By: #### C MP, CBC ####[place] [id number] [facility] Glucose Poct Glucometerson 0 08-25-2023 Glucose [Mass/Vol] 329 mg/dL Normal [facility] Comment on above: Result Comment: [facility] Glucose Reference Range is dependent on time and content of last meal. Glucose of more than 200 mg/dL in a nonstressed, ambulatory subject supports the diagnosis of Diabetes Mellitus.PERFORMED BY:[place] [address] [address] [place], [place] [phone] MEDICAL DIRECTORDEAN MCWILLIAMS M.D. Performed By: #### G LULS ####Point of Care testing, Commemt1 Normal [facility] Comment on above: Result Comment: Glu2 : WILL NOTIFY DR/FRANCIERFORMED BY:[address] [address] [place], [place] [phone] MEDICAL DIRECTORDEAN MCWILLIAMS M.D. Performed By: #### G LULS ####Point of Care testing, Glucose [Mass/Vol] 441 mg/dL Off scale high Th e [facility] Comment on above: Result Comment: [place] Glucose Reference Range is dependent on time and content of last meal. Glucose of more than 200 mg/dL in a nonstressed, ambulatory subject supports the diagnosis of Diabetes Mellitus. Performed By: #### G LULS ####Point of Care testing, Commemt1 Normal [facility] Comment on above: Result Comment: Glu2 : Will Repeat TestPERFORMED BY:[address] [address] [address] [place], [place] [phone] MEDICAL DIRECTORDEAN MCWILLIAMS M.D. Performed By: #### G LULS ####Point of Care testing, Glucose [Mass/Vol] 420 mg/dL Off scale high Th e [facility] Comment on above: Result Comment: [place] Glucose Reference Range is dependent on time and content of last meal. Glucose of more than 200 mg/dL in a nonstressed, ambulatory subject supports the diagnosis of Diabetes Mellitus. Performed By: #### G LULS ####Point of Care testing, Commemt1 Glu2: Cleaned Meter Normal [facility] Comment on above: Performed By: #### G LULS ####Point of Care testing, Commemt2 WILL NOTIFY DR/RN Normal [facility] Comment on above: Result Comment: PERF ORMED BY:[address] [address] [place], [place] [phone] MEDICAL JAKE MCWILLIAMS M.D. Performed By: #### G LULS ####Point of Care testing, Glucose [Mass/Vol] 393 mg/dL Normal [facility] Comment on above: Result Comment: [place] Glucose Reference Range is dependent on time and content of last meal. Glucose of more than 200 mg/dL in a nonstressed, ambulatory subject supports the diagnosis of Diabetes Mellitus. Performed By: #### G LULS ####Point of Care testing, Lactate [Moles/volume] in Se rum or PlasmaOrdered By: Alon Santiago on 08-25-2023 Lactate [Moles/Vol] 1.6 mmol/L Normal 0.5-2.2 [facility] Comment on above: Result Comment: PERF ORMED BY:[address] [address] [place], [place] [phone] MEDICAL DIRECTORDEAN MCWILLIAMS M.D. Performed By: #### L ACTIC ####[place] [id number] [facility] XR foot BI 2Von 08-25-2023 XR foot BI 2V Normal [facility] Automated basophil %Ordered By: Gabriel Gould on 06-26-2023 Basophils/100 WBC (Bld) 0.6 % Normal . [facility] Comment on above: Performed By: #### B MP, MG, CBC ####[address] Automated basophil countOrde red By: Gabriel Gould on 06-26-2023 Basophils (Bld) [#/Vol] 0.0 10*3/uL Normal 0.0-0.2 [facility] Comment on above: Result Comment: PERF ORMED BY:[address] [address] [place], [place] [phone] MEDICAL DIRECTORDEAN MCWILLIAMS M.D. Performed By: #### B MP, MG, CBC ####[address] Automated blood monocyte cou ntOrdered By: Gabriel Gould on 06-26-2023 Monocytes (Bld) [#/Vol] 1.6 10*3/uL High 0.0-0.8 [facility] Comment on above: Performed By: #### B MP, MG, CBC ####[address] Automated eosinophil %Ordere d By: Gabriel Gould on 06-26-2023 Eosinophils/100 WBC (Bld) 2.1 % Normal . [facility] Comment on above: Performed By: #### B MP, MG, CBC ####[facility] Automated eosinophil countOr dered By: Gabriel Gould on 06-26-2023 Eosinophils (Bld) [#/Vol] 0.2 10*3/uL Normal 0.0-0.45 [facility] Comment on above: Performed By: #### B MP, MG, CBC ####[address] Automated monocyte %Ordered By: Gabriel Gould on 06-26-2023 Monocytes/100 WBC (Bld) 19.8 % Normal . [facility] Comment on above: Performed By: #### B MP, MG, CBC ####[address] Automated neutrophil %Ordere d By: Gabriel Gould on 06-26-2023 Neutrophils/100 WBC (Bld) 65.0 % Normal . [facility] Comment on above: Performed By: #### B MP, MG, CBC ####[address] Basic Metabolic Panelon 06-11 Creatinine Clr Calc Pharmacy 10.35 Normal [facility] Comment on above: Performed By: #### B MP, MG, CBC ####[address] GFR/1.73 sq M.predicted MDRD (S/P/Bld) [Vol rate/Area] 6.692 mL/min/{1.73_m2} Normal [facility] Comment on above: Performed By: #### B MP, MG, CBC ####[address] Calcium [Mass/volume] in Ser um or PlasmaOrdered By: Gabriel Gould on 06-26-2023 Calcium [Mass/Vol] 8.9 mg/dL Normal 8.6-10.3 [facility] Comment on above: Performed By: #### B MP, MG, CBC ####[address] [address] [place] Capillary blood glucose mike urement by glucometer (mass/volume)Ordered By: Diony Devi on 06-26-2023 Glucose [Mass/Vol] 138 mg/dL Normal [facility] Comment on above: Random Glucose Refer ence Range is dependent on time and content of last meal. Glucose of more than 200 mg/dL in a nonstressed, ambulatory subject supports the diagnosis of Diabetes Mellitus. Result Comment: [place] Glucose Reference Range is dependent on time and content of last meal. Glucose of more than 200 mg/dL in a nonstressed, ambulatory subject supports the diagnosis of Diabetes Mellitus. Performed By: #### G LULS ####Point of Care testing, Carbon dioxide, total [Moles /volume] in Serum or PlasmaOrdered By: Gabriel Gould on 06-26-2023 CO2 [Moles/Vol] 29.1 mmol/L Normal 21.0-31.0 [facility] Comment on above: Performed By: #### B MP, MG, CBC ####[address] Chloride [Moles/volume] in S bushra or PlasmaOrdered By: Gabriel Gould on 06-26-2023 Chloride [Moles/Vol] 97 mmol/L Low 98-107 [facility] Comment on above: Performed By: #### B MP, MG, CBC ####[address] Complete Blood Count Auto Di ffon 06-26-2023 Mean Corpuscular HGB Conc 33.0 g/dL Normal 32.5-35.6 [facility] Comment on above: Performed By: #### B MP, MG, CBC ####[address] NRBC% 0.0 /100{WBC} Normal 0-0.5 [facility] Comment on above: Performed By: #### B MP, MG, CBC ####[address] Creatinine [Mass/volume] in Serum or PlasmaOrdered By: Gabriel Gould on 06-26-2023 Creatinine [Mass/Vol] 8.11 mg/dL Significan t change up 0.70-1.30 [facility] Comment on above: Delta: 6.09 on 06/24 Performed By: #### B MP, MG, CBC ####[place] [id number] [place] [id number] [facility] Erythrocyte distribution wid th [Ratio] by Automated countOrdered By: Gabriel Gould on 06-26-2023 Erythrocyte distribution width (RBC) [Ratio] 15.4 % High 12.0-14.8 [facility] Comment on above: Performed By: #### B MP, MG, CBC ####[address] Erythrocytes [#/volume] in B lood by Automated countOrdered By: Gabriel Gould on 06-26-2023 RBC (Bld) [#/Vol] 3.34 10*6/uL Low 3.90-5.60 [facility] Comment on above: Performed By: #### B MP, MG, CBC ####[place] [id number] [facility] Glucose Poct Glucometerson 0 06-26-2023 Commemt1 Glu2: Cleaned Meter Normal [facility] Comment on above: Result Comment: PERF ORMED BY:[address] [address] [place], [place] [phone] MEDICAL DIRECTORDEAN MCWILLIAMS M.D. Performed By: #### G LULS ####Point of Care testing, Glucose [Mass/Vol] 78 mg/dL Normal [facility] Comment on above: Result Comment: [place] Glucose Reference Range is dependent on time and content of last meal. Glucose of more than 200 mg/dL in a nonstressed, ambulatory subject supports the diagnosis of Diabetes Mellitus.PERFORMED BY:[address] [address] [place], [place] [phone] MEDICAL DIRECTORDEAN MCWILLIAMS M.D. Performed By: #### G LULS ####Point of Care testing, Glucose [Mass/volume] in Ser um or PlasmaOrdered By: Gabriel Gould on 06-26-2023 Glucose [Mass/Vol] 72 mg/dL Normal 70-100 [facility] Comment on above: ADA recommended refe rence rangeRandom Glucose Reference Range is dependent on time and content of last meal. Glucose of more than 200 mg/dL in a nonstressed, ambulatory subject supports the diagnosis of Diabetes Mellitus. Result Comment: [place] om Glucose Reference Range is dependent on time and content of last meal. Glucose of more than 200 mg/dL in a nonstressed, ambulatory subject supports the diagnosis of Diabetes Mellitus. ADA recommended reference range Performed By: #### B MP, MG, CBC ####[facility] [id number] Hematocrit [Volume Fraction] of Blood by Automated countOrdered By: Gabriel Gould on 06-26-2023 Hematocrit (Bld) [Volume fraction] 29.2 % Low 38.8-50.0 [facility] Comment on above: Performed By: #### B MP, MG, CBC ####[facility] [id number] Hemoglobin [Mass/volume] in BloodOrdered By: Gabriel Gould on 06-26-2023 Hemoglobin (Bld) [Mass/Vol] 9.7 g/dL Low 13.0-17.0 [facility] Comment on above: Performed By: #### B MP, MG, CBC ####[address] Leukocytes [#/volume] correc jennifer for nucleated erythrocytes in Blood by Automated counOrdered By: Gabriel Gould on 06-26-2023 WBC corrected for nucl RBC Auto (Bld) [#/Vol] 8.1 10*3/uL 4.1-10.5 [facility] Leukocytes [#/volume] in Blo od by Automated countOrdered By: Gabriel Gould on 06-26-2023 WBC (Bld) [#/Vol] 8.1 10*3/uL Normal 4.1-10.5 [facility] Comment on above: Performed By: #### B MP, MG, CBC ####[address] Lymphocytes [#/volume] in Bl ood by Automated countOrdered By: Gabriel Gould on 06-26-2023 Lymphocytes (Bld) [#/Vol] 1.0 10*3/uL Normal 1.00-4.8 [facility] Comment on above: Performed By: #### B MP, MG, CBC ####[address] Lymphocytes/100 leukocytes i n Blood by Automated countOrdered By: Gabriel Gould on 06-26-2023 Lymphocytes/100 WBC (Bld) 12.5 % Normal . [facility] Comment on above: Performed By: #### B MP, MG, CBC ####[address] MCH [Entitic mass] by Automa jennifer countOrdered By: Gabriel Gould on 06-26-2023 MCH (RBC) [Entitic mass] 28.9 pg Normal 27.5-35.2 [facility] Comment on above: Performed By: #### B MP, MG, CBC ####[address] MCHC Auto (RBC) [Mass/Vol]Or dered By: Gabriel Gould on 06-26-2023 MCHC (RBC) [Mass/Vol] 33.0 g/dL 32.5-35.6 [facility] MCV [Entitic volume] by Auto mated countOrdered By: Gabriel Gould on 06-26-2023 MCV (RBC) [Entitic vol] 87.4 fL Normal 83.5-101 [facility] Comment on above: Performed By: #### B MP, MG, CBC ####[address] Magnesium [Mass/volume] in S bushra or PlasmaOrdered By: Gabriel Gould on 06-26-2023 Magnesium [Mass/Vol] 1.9 mg/dL Normal 1.9-2.7 [facility] Comment on above: Result Comment: PERF ORMED BY:[facility]111[facility] HOSPITALALEXANDER [place]FA[place], [place] [phone] MEDICAL DIRECTORDEAN MCWILLIAMS M.D. Performed By: #### B MP, MG, CBC ####[place] [id number] [place] [id number] [facility] Neutrophils [#/volume] in Bl ood by Automated countOrdered By: Gabriel Gould on 06-26-2023 Neutrophils (Bld) [#/Vol] 5.3 10*3/uL Normal 1.8-7.7 [facility] Comment on above: Performed By: #### B MP, MG, CBC ####[place] [id number] No Panel InformationOrdered By: Diony Devi on 06-26-2023 Bedside Glucose Comment Glu2: cleaned meter [facility] No Panel InformationOrdered By: Gabriel Gould on 06-26-2023 Estimated GFR (CKD-EPI) 6.692 mL/Min [facility] Creatinine Clearance (Chem 10.35 [facility] Nucleated erythrocytes [Pres ence] in Blood by Automated countOrdered By: Gabriel Gould on 06-26-2023 Nucleated RBC Auto Ql (Bld) 0.0 /100{WBC} 0-0.5 [facility] Platelet mean volume [Entiti c volume] in Blood by Automated countOrdered By: Gabriel Gould on 06-26-2023 Platelet mean volume (Bld) [Entitic vol] 7.8 fL Normal 6.6-10.1 [facility] Comment on above: Performed By: #### B MP, MG, CBC ####[place] [id number] [facility] Platelets [#/volume] in Bloo d by Automated countOrdered By: Gabriel Gould on 06-26-2023 Platelets (Bld) [#/Vol] 315 10*3/uL Normal 150-450 [facility] Comment on above: Performed By: #### B MP, MG, CBC ####[address] Potassium [Moles/volume] in Serum or PlasmaOrdered By: Gabriel Gould on 06-26-2023 Potassium [Moles/Vol] 4.3 mmol/L Normal 3.5-5.1 [facility] Comment on above: Performed By: #### B MP, MG, CBC ####[address] Serum or plasma anion gap de terminationOrdered By: Gabriel Gould on 06-26-2023 Anion gap [Moles/Vol] 6.2 mmol/L Normal 6.0-15.0 [facility] Comment on above: Performed By: #### B MP, MG, CBC ####[address] Sodium [Moles/volume] in Ser um or PlasmaOrdered By: Gabriel Gould on 06-26-2023 Sodium [Moles/Vol] 128 mmol/L Low 136-145 [facility] Comment on above: Performed By: #### B MP, MG, CBC ####[address] Urea nitrogen [Mass/volume] in Serum or PlasmaOrdered By: Gabriel Gould on 06-26-2023 Urea nitrogen [Mass/Vol] 30 mg/dL High 7-25 [facility] Comment on above: Performed By: #### B MP, MG, CBC ####[place] [id number] [facility] Aerobic Cultureon 06-25-2023 Aerobic Culture Normal [facility] Comment on above: Performed By: #### A ERC ####[place] [id number] [facility] Basic Metabolic Panelon 06-11 Anion gap [Moles/Vol] 8.7 mmol/L Normal 6.0-15.0 [facility] Comment on above: Performed By: #### M G, CBC, BMP ####[address] [place] [address] [facility] Calcium [Mass/Vol] 8.7 mg/dL Normal 8.6-10.3 [facility] Comment on above: Performed By: #### M Debbie, CBC, BMP ####[place] [id number] Chloride [Moles/Vol] 95 mmol/L Low 98-107 [facility] Comment on above: Performed By: #### M Debbie, CBC, BMP ####[place] [id number] [facility] CO2 [Moles/Vol] 28.5 mmol/L Normal 21.0-31.0 [facility] Comment on above: Performed By: #### M Debbie, CBC, BMP ####[address] Creatinine [Mass/Vol] 6.09 mg/dL Significan t change up 0.70-1.30 [facility] Comment on above: Performed By: #### M Debbie, CBC, BMP ####[address] Creatinine Clr Calc Pharmacy 13.50 Normal [facility] Comment on above: Performed By: #### M Debbie, CBC, BMP ####[place] [id number] [facility] GFR/1.73 sq M.predicted MDRD (S/P/Bld) [Vol rate/Area] 9.438 mL/min/{1.73_m2} Normal [facility] Comment on above: Performed By: #### M Debbie, CBC, BMP ####[place] [id number] [facility] Glucose [Mass/Vol] 118 mg/dL High 70-100 [facility] Comment on above: Result Comment: [place] Glucose Reference Range is dependent on time and content of last meal. Glucose of more than 200 mg/dL in a nonstressed, ambulatory subject supports the diagnosis of Diabetes Mellitus. ADA recommended reference range Performed By: #### M Debbie, CBC, BMP ####[place] [address] Potassium [Moles/Vol] 4.2 mmol/L Normal 3.5-5.1 [facility] Comment on above: Performed By: #### M G, CBC, BMP ####[address] Sodium [Moles/Vol] 128 mmol/L Low 136-145 [facility] Comment on above: Performed By: #### M G, CBC, BMP ####[address] Urea nitrogen [Mass/Vol] 21 mg/dL Normal 7-25 [facility] Comment on above: Performed By: #### M G, CBC, BMP ####[address] Complete Blood Count Auto Di ffon 06-25-2023 Basophils (Bld) [#/Vol] 0.1 10*3/uL Normal 0.0-0.2 [facility] Comment on above: Result Comment: PERF ORMED BY:[address] [place], [place] [phone] MEDICAL DIRECTORDEAN MCWILLIAMS M.D. Performed By: #### M G, CBC, BMP ####[address] Basophils/100 WBC (Bld) 1.0 % Normal . [facility] Comment on above: Performed By: #### M G, CBC, BMP ####[address] Eosinophils (Bld) [#/Vol] 0.2 10*3/uL Normal 0.0-0.45 [facility] Comment on above: Performed By: #### M G, CBC, BMP ####[address] Eosinophils/100 WBC (Bld) 3.7 % Normal . [facility] Comment on above: Performed By: #### M G, CBC, BMP ####[address] [place] [address] [place] Erythrocyte distribution width (RBC) [Ratio] 15.5 % High 12.0-14.8 [facility] Comment on above: Performed By: #### M G, CBC, BMP ####[address] Hematocrit (Bld) [Volume fraction] 30.8 % Low 38.8-50.0 [facility] Comment on above: Performed By: #### M G, CBC, BMP ####[address] Hemoglobin (Bld) [Mass/Vol] 10.3 g/dL Low 13.0-17.0 [facility] Comment on above: Performed By: #### M G, CBC, BMP ####[address] Lymphocytes (Bld) [#/Vol] 1.0 10*3/uL Normal 1.00-4.8 [facility] Comment on above: Performed By: #### Ezekiel G, CBC, BMP ####[address] Lymphocytes/100 WBC (Bld) 17.2 % Normal . [facility] Comment on above: Performed By: #### M G, CBC, BMP ####[address] MCH (RBC) [Entitic mass] 29.1 pg Normal 27.5-35.2 [facility] Comment on above: Performed By: #### M G, CBC, BMP ####[address] MCV (RBC) [Entitic vol] 87.2 fL Normal 83.5-101 [facility] Comment on above: Performed By: #### M G, CBC, BMP ####[address] Mean Corpuscular HGB Conc 33.3 g/dL Normal 32.5-35.6 [facility] Comment on above: Performed By: #### M G, CBC, BMP ####[address] [address] [facility] Monocytes (Bld) [#/Vol] 1.2 10*3/uL High 0.0-0.8 [facility] Comment on above: Performed By: #### M G, CBC, BMP ####[address] [address] [facility] Monocytes/100 WBC (Bld) 21.5 % Normal . [facility] Comment on above: Performed By: #### M G, CBC, BMP ####[place] [id number] [facility] Neutrophils (Bld) [#/Vol] 3.2 10*3/uL Normal 1.8-7.7 [facility] Comment on above: Performed By: #### Ezekiel G, CBC, BMP ####[place] [id number] [facility] Neutrophils/100 WBC (Bld) 56.6 % Normal . [facility] Comment on above: Performed By: #### Ezekiel G, CBC, BMP ####[place] [id number] [facility] NRBC% 0.1 /100{WBC} Normal 0-0.5 [facility] Comment on above: Performed By: #### M G, CBC, BMP ####[place] [id number] [facility] Platelet mean volume (Bld) [Entitic vol] 7.9 fL Normal 6.6-10.1 [facility] Comment on above: Performed By: #### M G, CBC, BMP ####[place] [id number] [facility] Platelets (Bld) [#/Vol] 276 10*3/uL Normal 150-450 [facility] Comment on above: Performed By: #### M G, CBC, BMP ####[place] [id number] [facility] RBC (Bld) [#/Vol] 3.53 10*6/uL Low 3.90-5.60 [facility] Comment on above: Performed By: #### M G, CBC, BMP ####[facility] [place] [address] [facility] WBC (Bld) [#/Vol] 5.7 10*3/uL Normal 4.1-10.5 [facility] Comment on above: Performed By: #### M G, CBC, BMP ####[facility] [place] [address] [facility] ECG 12 lead ECGon 06-25-2023 ECG 12 lead ECG Normal [facility] Glucose Poct Glucometerson 0 06-25-2023 Glucose [Mass/Vol] 135 mg/dL Normal [facility] Comment on above: Result Comment: [facility] Glucose Reference Range is dependent on time and content of last meal. Glucose of more than 200 mg/dL in a nonstressed, ambulatory subject supports the diagnosis of Diabetes Mellitus.PERFORMED BY:[address] [place], [place] [phone] MEDICAL JAKE MCWILLIAMS M.D. Performed By: #### G LULS ####Point of Care testing, Glucose [Mass/Vol] 270 mg/dL Normal [facility] Comment on above: Result Comment: [facility] Glucose Reference Range is dependent on time and content of last meal. Glucose of more than 200 mg/dL in a nonstressed, ambulatory subject supports the diagnosis of Diabetes Mellitus.PERFORMED BY:[address] [place], [place] [phone] MEDICAL JAKE MCWILLIAMS M.D. Performed By: #### G LULS ####Point of Care testing, Glucose [Mass/Vol] 103 mg/dL Normal [facility] Comment on above: Result Comment: [facility] Glucose Reference Range is dependent on time and content of last meal. Glucose of more than 200 mg/dL in a nonstressed, ambulatory subject supports the diagnosis of Diabetes Mellitus.PERFORMED BY:[address] [place], [place] [phone] MEDICAL JAKE MCWILLIAMS M.D. Performed By: #### G LULS ####Point of Care testing, Commemt1 Glu2: Cleaned Meter Normal [facility] Comment on above: Result Comment: PERF ORMED BY:[place] [address] [address] [place], [place] [phone] MEDICAL DIRECTORDEAN MCWILLIAMS M.D. Performed By: #### G LULS ####Point of Care testing, Glucose [Mass/Vol] 121 mg/dL Normal [facility] Comment on above: Result Comment: [place] om Glucose Reference Range is dependent on time and content of last meal. Glucose of more than 200 mg/dL in a nonstressed, ambulatory subject supports the diagnosis of Diabetes Mellitus. Performed By: #### G LULS ####Point of Care testing, Glucose [Mass/Vol] 120 mg/dL Normal [facility] Comment on above: Result Comment: [place] om Glucose Reference Range is dependent on time and content of last meal. Glucose of more than 200 mg/dL in a nonstressed, ambulatory subject supports the diagnosis of Diabetes Mellitus.PERFORMED BY:[place] [place], [place] [phone] MEDICAL DIRECTORDEAN MCWILLIAMS M.D. Performed By: #### G LULS ####Point of Care testing, Gram stain for investigation of transfusion reactionOrdered By: Felisa Win on 06-25-2023 Microscopic observation Gram stain Nom (Unsp spec) Corynebacterium striatum group Abnormal [facility] Microscopic observation Gram stain Nom (Unsp spec) Methicillin Resis Staph Aureus Abnormal [facility] Raghu 06-25-2023 L Normal [facility] Magnesiumon 06-25-2023 Magnesium [Mass/Vol] 1.9 mg/dL Normal 1.9-2.7 [facility] Comment on above: Result Comment: PERF ORMED BY:[address] [place], [place] [phone] MEDICAL DIRECTORDEAN MCWILLIAMS M.D. Performed By: #### M G, CBC, BMP ####[facility] [place] [id number] [facility] Basic Metabolic Panelon 05 Anion gap [Moles/Vol] 15.1 mmol/L High 6.0-15.0 Th e [facility] Comment on above: Performed By: #### SIGIFREDO Bae, CBC ####[place] [id number] [facility] Calcium [Mass/Vol] 9.0 mg/dL Normal 8.6-10.3 [facility] Comment on above: Performed By: #### SIGIFREDO Bae, CBC ####[place] [id number] [facility] Chloride [Moles/Vol] 93 mmol/L Low 98-107 [facility] Comment on above: Performed By: #### SIGIFREDO Bae, CBC ####[place] [id number] [facility] CO2 [Moles/Vol] 29.0 mmol/L Normal 21.0-31.0 [facility] Comment on above: Performed By: #### SIGIFREDO Bae, CBC ####[place] [id number] [facility] Creatinine [Mass/Vol] 9.61 mg/dL Significan t change up 0.70-1.30 [facility] Comment on above: Performed By: #### SIGIFREDO Bae, CBC ####[place] [id number] [facility] Creatinine Clr Calc Pharmacy 8.55 Normal [facility] Comment on above: Performed By: #### SIGIFREDO Bae, CBC ####[place] [id number] [place] GFR/1.73 sq M.predicted MDRD (S/P/Bld) [Vol rate/Area] 5.459 mL/min/{1.73_m2} Normal [facility] Comment on above: Performed By: #### SIGIFREDO Bae, CBC ####[place] [id number] [facility] Glucose [Mass/Vol] 66 mg/dL Significant change down 70-100 [facility] Comment on above: Result Comment: [facility] Glucose Reference Range is dependent on time and content of last meal. Glucose of more than 200 mg/dL in a nonstressed, ambulatory subject supports the diagnosis of Diabetes Mellitus. ADA recommended reference range Performed By: #### SIGIFREDO Bae, CBC ####[place] [id number] [facility] Potassium [Moles/Vol] 4.1 mmol/L Normal 3.5-5.1 [facility] Comment on above: Performed By: #### SIGIFREDO Bae, CBC ####[address] Sodium [Moles/Vol] 133 mmol/L Significant change down 136-145 [facility] Comment on above: Performed By: #### SIGIFREDO Bae, CBC ####[place] [id number] [facility] Urea nitrogen [Mass/Vol] 42 mg/dL High 7-25 [facility] Comment on above: Performed By: #### SIGIFREDO Bae, CBC ####[place] [id number] [facility] Complete Blood Count Auto Di ffon 06-24-2023 Basophils (Bld) [#/Vol] 0.0 10*3/uL Normal 0.0-0.2 [facility] Comment on above: Result Comment: PERF ORMED BY:[address] [place], [place] [phone] MEDICAL DIRECTORDEAN MCWILLIAMS M.D. Performed By: #### SIGIFREDO Bae, CBC ####[place] [id number] [facility] Basophils/100 WBC (Bld) 0.7 % Normal . [facility] Comment on above: Performed By: #### SIGIFREDO Bae, CBC ####[place] [id number] [facility] Eosinophils (Bld) [#/Vol] 0.2 10*3/uL Normal 0.0-0.45 [facility] Comment on above: Performed By: #### M G, BMP, CBC ####[place] [id number] [facility] Eosinophils/100 WBC (Bld) 3.4 % Normal . [facility] Comment on above: Performed By: #### M G, BMP, CBC ####[address] Erythrocyte distribution width (RBC) [Ratio] 15.3 % High 12.0-14.8 [facility] Comment on above: Performed By: #### Ezekiel Lewis, BMP, CBC ####[address] Hematocrit (Bld) [Volume fraction] 28.9 % Low 38.8-50.0 [facility] Comment on above: Performed By: #### Ezekiel Lewis, BMP, CBC ####[address] Hemoglobin (Bld) [Mass/Vol] 9.7 g/dL Low 13.0-17.0 [facility] Comment on above: Performed By: #### Ezekiel Lewis BMP, CBC ####[address] Lymphocytes (Bld) [#/Vol] 1.1 10*3/uL Normal 1.00-4.8 [facility] Comment on above: Performed By: #### Ezekiel Lewis, BMP, CBC ####[place] [id number] [facility] Lymphocytes/100 WBC (Bld) 17.4 % Normal . [facility] Comment on above: Performed By: #### Ezekiel Lewis, BMP, CBC ####[place] [id number] [facility] MCH (RBC) [Entitic mass] 29.2 pg Normal 27.5-35.2 [facility] Comment on above: Performed By: #### Ezekiel G, BMP, CBC ####[place] [id number] [facility] MCV (RBC) [Entitic vol] 86.8 fL Normal 83.5-101 [facility] Comment on above: Performed By: #### M G, BMP, CBC ####[address] Mean Corpuscular HGB Conc 33.6 g/dL Normal 32.5-35.6 [facility] Comment on above: Performed By: #### M G, BMP, CBC ####[address] Monocytes (Bld) [#/Vol] 1.4 10*3/uL High 0.0-0.8 [facility] Comment on above: Performed By: #### Ezekiel Lewis, BMP, CBC ####[address] Monocytes/100 WBC (Bld) 22.5 % Normal . [facility] Comment on above: Performed By: #### Ezekiel Lewis, BMP, CBC ####[address] Neutrophils (Bld) [#/Vol] 3.6 10*3/uL Normal 1.8-7.7 [facility] Comment on above: Performed By: #### Ezekiel Lewis BMP, CBC ####[address] Neutrophils/100 WBC (Bld) 56.0 % Normal . [facility] Comment on above: Performed By: #### Ezekiel Lewis, BMP, CBC ####[address] NRBC% 0.1 /100{WBC} Normal 0-0.5 [facility] Comment on above: Performed By: #### M G, BMP, CBC ####[address] Platelet mean volume (Bld) [Entitic vol] 7.6 fL Normal 6.6-10.1 [facility] Comment on above: Performed By: #### Ezekiel G, BMP, CBC ####[address] Platelets (Bld) [#/Vol] 270 10*3/uL Normal 150-450 [facility] Comment on above: Performed By: #### M SIGIFREDO Lewis, CBC ####[address] RBC (Bld) [#/Vol] 3.33 10*6/uL Low 3.90-5.60 [facility] Comment on above: Performed By: #### SIGIFREDO Bae, CBC ####[address] WBC (Bld) [#/Vol] 6.4 10*3/uL Normal 4.1-10.5 [facility] Comment on above: Performed By: #### SIGIFREDO Bae, CBC ####[address] ECH echo transthoracicon ECH echo transthoracic Normal [facility] Glucose Poct Glucometerson 0 06-24-2023 Glucose [Mass/Vol] 161 mg/dL Normal [facility] Comment on above: Result Comment: [place] om Glucose Reference Range is dependent on time and content of last meal. Glucose of more than 200 mg/dL in a nonstressed, ambulatory subject supports the diagnosis of Diabetes Mellitus.PERFORMED BY:[place] [address] [place], [place] [phone] MEDICAL DIRECTORDEAN MCWILLIAMS M.D. Performed By: #### G LULS ####Point of Care testing, Commemt1 Glu2: Cleaned Meter Normal [facility] Comment on above: Result Comment: PERF ORMED BY:[address] [place], [place] [phone] MEDICAL DIRECTORDEAN MCWILLIAMS M.D. Performed By: #### G LULS ####Point of Care testing, Glucose [Mass/Vol] 279 mg/dL Normal [facility] Comment on above: Result Comment: [place] om Glucose Reference Range is dependent on time and content of last meal. Glucose of more than 200 mg/dL in a nonstressed, ambulatory subject supports the diagnosis of Diabetes Mellitus. Performed By: #### G LULS ####Point of Care testing, Glucose [Mass/Vol] 151 mg/dL Normal [facility] Comment on above: Result Comment: [facility] Glucose Reference Range is dependent on time and content of last meal. Glucose of more than 200 mg/dL in a nonstressed, ambulatory subject supports the diagnosis of Diabetes Mellitus.PERFORMED BY:[place] [address] [place], [place] [phone] MEDICAL DIRECTORDEAN MCWILLIAMS M.D. Performed By: #### G LULS ####Point of Care testing, Glucose [Mass/Vol] 73 mg/dL Normal [facility] Comment on above: Result Comment: [facility] Glucose Reference Range is dependent on time and content of last meal. Glucose of more than 200 mg/dL in a nonstressed, ambulatory subject supports the diagnosis of Diabetes Mellitus.PERFORMED BY:[address] [place], [place] [phone] MEDICAL DIRECTORDEAN MCWILLIAMS M.D. Performed By: #### G LULS ####Point of Care testing, Magnesiumon 06-24-2023 Magnesium [Mass/Vol] 2.2 mg/dL Normal 1.9-2.7 [facility] Comment on above: Result Comment: PERF ORMED BY:[place] [address] [place], [place] [phone] MEDICAL DIRECTORDEAN MCWILLIAMS M.D. Performed By: #### M G, BMP, CBC ####[address] [address] [facility] Anisocytosis [Presence] in B lood by Light microscopyOrdered By: Gabriel Gould on 06-23-2023 Anisocytosis Ql (Bld) Slight Normal [facility] Comment on above: Performed By: #### D IFF CBC, MG, BMP ####[address] [address] [facility] Bacterial blood cultureOrder ed By: Mary Ruffin on 06-23-2023 Bacteria identified Cx Nom (Bld) NO GROWTH 5 DAYS [facility] Bacteria identified Cx Nom (Bld) NO GROWTH 5 DAYS [facility] Basic Metabolic Panelon 06-11 Anion gap [Moles/Vol] 13.5 mmol/L Normal 6.0-15.0 e [facility] Comment on above: Performed By: #### D IFF CBC, MG, BMP ####[address] Calcium [Mass/Vol] 8.8 mg/dL Normal 8.6-10.3 [facility] Comment on above: Performed By: #### D IFF CBC, MG, BMP ####[address] Chloride [Moles/Vol] 90 mmol/L Low 98-107 [facility] Comment on above: Performed By: #### D IFF CBC, MG, BMP ####[address] CO2 [Moles/Vol] 27.2 mmol/L Normal 21.0-31.0 [facility] Comment on above: Performed By: #### D IFF CBC, MG, BMP ####[address] Creatinine [Mass/Vol] 7.95 mg/dL Significan t change up 0.70-1.30 [facility] Comment on above: Performed By: #### D IFF CBC, MG, BMP ####[address] Creatinine Clr Calc Pharmacy 10.35 Normal [facility] Comment on above: Performed By: #### D IFF CBC, MG, BMP ####[address] GFR/1.73 sq M.predicted MDRD (S/P/Bld) [Vol rate/Area] 6.854 mL/min/{1.73_m2} Normal [facility] Comment on above: Performed By: #### D IFF CBC, MG, BMP ####[address] Glucose [Mass/Vol] 181 mg/dL High 70-100 [facility] Comment on above: Result Comment: [facility] Glucose Reference Range is dependent on time and content of last meal. Glucose of more than 200 mg/dL in a nonstressed, ambulatory subject supports the diagnosis of Diabetes Mellitus. ADA recommended reference range Performed By: #### D IFF CBC, MG, BMP ####[place] [id number] [facility] Potassium [Moles/Vol] 3.7 mmol/L Normal 3.5-5.1 [facility] Comment on above: Performed By: #### D IFF CBC, MG, BMP ####[address] Sodium [Moles/Vol] 127 mmol/L Low 136-145 [facility] Comment on above: Performed By: #### D IFF CBC, MG, BMP ####[address] Urea nitrogen [Mass/Vol] 34 mg/dL High 7-25 [facility] Comment on above: Performed By: #### D IFF CBC, MG, BMP ####[place] [id number] [place] Basophils/100 leukocytes in Blood by Manual countOrdered By: Gabriel Gould on 06-23-2023 Basophils/100 WBC (Bld) 1 % Normal 0-2 [facility] Comment on above: Performed By: #### D IFF CBC, MG, BMP ####[place] [id number] [facility] Blood Cultureon 06-23-2023 Bacteria identified Cx Nom (Bld) NO GROWTH 5 DAYS PERFORMED BY: [facility] [address] [id number] PATHOLOGIST LEAK PATCHER DEAN MCWILLIAMS M.D. Normal [facility] Comment on above: Performed By: #### C UBLD ####[place] [id number] [facility] Bacteria identified Cx Nom (Bld) NO GROWTH 5 DAYS PERFORMED BY: [facility] [address] [place] [address] PATHOLOGIST LEAK PATCHER DEAN MCWILLIAMS M.D. Normal [facility] Comment on above: Performed By: #### C UBLD ####[address] [place] cells [Presence] in Blo od by Light microscopyOrdered By: Gabriel Gould on 06-23-2023 [place] cells LM Ql (Bld) Slight [facility] Diff and CBCon 06-23-2023 Crenated RBC Slight Normal [facility] Comment on above: Performed By: #### D IFF CBC, MG, BMP ####[address] Erythrocyte distribution width (RBC) [Ratio] 15.4 % High 12.0-14.8 [facility] Comment on above: Performed By: #### D IFF CBC, MG, BMP ####[address] Hematocrit (Bld) [Volume fraction] 29.3 % Low 38.8-50.0 [facility] Comment on above: Performed By: #### D IFF CBC, MG, BMP ####[address] Hemoglobin (Bld) [Mass/Vol] 9.8 g/dL Low 13.0-17.0 [facility] Comment on above: Performed By: #### D IFF CBC, MG, BMP ####[address] MCH (RBC) [Entitic mass] 29.4 pg Normal 27.5-35.2 [facility] Comment on above: Performed By: #### D IFF CBC, MG, BMP ####[address] MCV (RBC) [Entitic vol] 87.8 fL Normal 83.5-101 [facility] Comment on above: Performed By: #### D IFF CBC, MG, BMP ####[place] [id number] [place] [address] [facility] Mean Corpuscular HGB Conc 33.5 g/dL Normal 32.5-35.6 [facility] Comment on above: Performed By: #### D IFF CBC, MG, BMP ####[address] [address] [facility] Metamyelocytes 1 % High 0-0 [facility] Comment on above: Performed By: #### D IFF CBC, MG, BMP ####[place] [id number] [facility] Myelocytes 1 % High 0-0 [facility] Comment on above: Performed By: #### D IFF CBC, MG, BMP ####[place] [id number] [facility] Platelet Estimate Normal Normal Normal [facility] Comment on above: Performed By: #### D IFF CBC, MG, BMP ####[place] [id number] [facility] Platelet mean volume (Bld) [Entitic vol] 7.8 fL Normal 6.6-10.1 [facility] Comment on above: Performed By: #### D IFF CBC, MG, BMP ####[place] [id number] [facility] Platelet Morphology Normal Normal Normal [facility] Comment on above: Result Comment: PERF ORMED BY:[address] [place], [place] [phone] MEDICAL DIRECTORDEAN MCWILLIAMS M.D. Performed By: #### D IFF CBC, MG, BMP ####[address] [address] [facility] Platelets (Bld) [#/Vol] 277 10*3/uL Normal 150-450 [facility] Comment on above: Performed By: #### D IFF CBC, MG, BMP ####[address] [address] [facility] Polychromasia Slight Normal [facility] Comment on above: Performed By: #### D IFF CBC, MG, BMP ####[place] [id number] RBC (Bld) [#/Vol] 3.34 10*6/uL Low 3.90-5.60 [facility] Comment on above: Performed By: #### D IFF CBC, MG, BMP ####[place] [address] [place] [id number] [facility] WBC (Bld) [#/Vol] 5.6 10*3/uL Normal 4.1-10.5 [facility] Comment on above: Performed By: #### D IFF CBC, MG, BMP ####[address] ECG 12 lead ECGon 06-23-2023 ECG 12 lead ECG Normal [facility] Eosinophils/100 leukocytes i n Blood by Manual countOrdered By: Gabriel Gould on 06-23-2023 Eosinophils/100 WBC (Bld) 3 % Normal 1-3 [facility] Comment on above: Performed By: #### D IFF CBC, MG, BMP ####[address] Glucose Poct Glucometerson 0 06-23-2023 Glucose [Mass/Vol] 295 mg/dL Normal [facility] Comment on above: Result Comment: [facility] Glucose Reference Range is dependent on time and content of last meal. Glucose of more than 200 mg/dL in a nonstressed, ambulatory subject supports the diagnosis of Diabetes Mellitus.PERFORMED BY:[address] [place], [place] [phone] MEDICAL JAKE MCWILLIAMS M.D. Performed By: #### G LULS ####Point of Care testing, Glucose [Mass/Vol] 107 mg/dL Normal [facility] Comment on above: Result Comment: [facility] Glucose Reference Range is dependent on time and content of last meal. Glucose of more than 200 mg/dL in a nonstressed, ambulatory subject supports the diagnosis of Diabetes Mellitus.PERFORMED BY:[address] [place], [place] [phone] MEDICAL DIRECTORDEAN MCWILLIAMS M.D. Performed By: #### G LULS ####Point of Care testing, Glucose [Mass/Vol] 265 mg/dL Normal [facility] Comment on above: Result Comment: [facility] Glucose Reference Range is dependent on time and content of last meal. Glucose of more than 200 mg/dL in a nonstressed, ambulatory subject supports the diagnosis of Diabetes Mellitus.PERFORMED BY:[place] [address] [place], [place] [phone] MEDICAL DIRECTORDEAN MCWILLIAMS M.D. Performed By: #### G LULS ####Point of Care testing, Glucose [Mass/Vol] 173 mg/dL Normal [facility] Comment on above: Result Comment: [facility] Glucose Reference Range is dependent on time and content of last meal. Glucose of more than 200 mg/dL in a nonstressed, ambulatory subject supports the diagnosis of Diabetes Mellitus.PERFORMED BY:[place] [address] [place], [place] [phone] MEDICAL JAKE MCWILLIAMS M.D. Performed By: #### G LULS ####Point of Care testing, Lymphocytes/100 leukocytes i n Blood by Manual countOrdered By: Gabriel Gould on 06-23-2023 Lymphocytes/100 WBC (Bld) 15 % Low 18-42 [facility] Comment on above: Performed By: #### D IFF CBC, MG, BMP ####[address] [address] [facility] Magnesiumon 06-23-2023 Magnesium [Mass/Vol] 2.1 mg/dL Normal 1.9-2.7 [facility] Comment on above: Result Comment: PERF ORMED BY:[place] [address] [place], [place] [phone] MEDICAL JAKE MCWILLIAMS M.D. Performed By: #### D IFF CBC, MG, BMP ####[address] [address] [facility] Manual blood segmented neutr ophils/100 leukocytesOrdered By: Gabriel Gould on 06-23-2023 Segmented neutrophils/100 WBC (Bld) 65 % Normal 50-70 [facility] Comment on above: Performed By: #### D IFF CBC, MG, BMP ####[facility] [address] [place] [address] [facility] Metamyelocytes/100 WBC Manua l cnt (Bld)Ordered By: Gabriel Gould on 06-23-2023 Metamyelocytes/100 WBC (Bld) 1 % High 0-0 [facility] Monocytes/100 leukocytes in Blood by Manual countOrdered By: Gabriel Gould on 06-23-2023 Monocytes/100 WBC (Bld) 15 % High 2-11 [facility] Comment on above: Performed By: #### D IFF CBC, MG, BMP ####[facility] [address] [place] [address] [facility] Myelocytes/100 WBC Manual cn t (Bld)Ordered By: Gabriel Gould on 06-23-2023 Myelocytes/100 WBC (Bld) 1 % High 0-0 [facility] Platelet adequacy [Presence] in Blood by Light microscopyOrdered By: Gabriel Gould on 06-23-2023 Platelets LM Ql (Bld) Normal Normal [facility] Platelet morphology finding [Identifier] in BloodOrdered By: Gabriel Gould on 06-23-2023 Platelet morphology finding Nom (Bld) Normal Normal [facility] Polychromasia [Presence] in Blood by Light microscopyOrdered By: Gabriel Gould on 06-23-2023 Polychromasia LM Ql (Bld) Slight [facility] RBC morphologyOrdered By: Chadd Gould on 06-23-2023 RBC morphology finding Nom (Bld) N/A [facility] Bacteria identified Aer cx N om (Unsp spec)Ordered By: Roney Aparicio on 06-22-2023 Superficial Wound Culture Methicillin Resis Staph Aureus Abnormal [facility] Basic Metabolic Panelon 06-11 Anion gap [Moles/Vol] 11.2 mmol/L Normal 6.0-15.0 Th e [facility] Comment on above: Performed By: #### C BC, MG, BMP ####[place] [id number] Calcium [Mass/Vol] 8.9 mg/dL Normal 8.6-10.3 [facility] Comment on above: Performed By: #### C BC, MG, BMP ####[place] [address] Chloride [Moles/Vol] 93 mmol/L Low 98-107 [facility] Comment on above: Performed By: #### C BC, MG, BMP ####[place] [id number] CO2 [Moles/Vol] 30.6 mmol/L Normal 21.0-31.0 [facility] Comment on above: Performed By: #### C BC, MG, BMP ####[address] Creatinine [Mass/Vol] 5.87 mg/dL Significan t change up 0.70-1.30 [facility] Comment on above: Performed By: #### C BC, MG, BMP ####[address] Creatinine Clr Calc Pharmacy 14.01 Normal [facility] Comment on above: Performed By: #### C BC, MG, BMP ####[place] [id number] [facility] GFR/1.73 sq M.predicted MDRD (S/P/Bld) [Vol rate/Area] 9.864 mL/min/{1.73_m2} Normal [facility] Comment on above: Performed By: #### C BC, MG, BMP ####[address] Glucose [Mass/Vol] 268 mg/dL High 70-100 [facility] Comment on above: Result Comment: [place] Glucose Reference Range is dependent on time and content of last meal. Glucose of more than 200 mg/dL in a nonstressed, ambulatory subject supports the diagnosis of Diabetes Mellitus. ADA recommended reference range Performed By: #### C BC, MG, BMP ####[place] [id number] [facility] Potassium [Moles/Vol] 3.8 mmol/L Normal 3.5-5.1 [facility] Comment on above: Performed By: #### C BC, MG, BMP ####[address] Sodium [Moles/Vol] 131 mmol/L Low 136-145 [facility] Comment on above: Performed By: #### C BC, MG, BMP ####[place] [id number] Urea nitrogen [Mass/Vol] 22 mg/dL Normal 7-25 [facility] Comment on above: Performed By: #### C BC, MG, BMP ####[address] Complete Blood Count Auto Di ffon 06-22-2023 Basophils (Bld) [#/Vol] 0.0 10*3/uL Normal 0.0-0.2 [facility] Comment on above: Result Comment: PERF ORMED BY:[address] [place], [place] [phone] MEDICAL DIRECTORDEAN MCWILLIAMS M.D. Performed By: #### C BC, MG, BMP ####[address] Basophils/100 WBC (Bld) 0.9 % Normal . [facility] Comment on above: Performed By: #### C BC, MG, BMP ####[place] [id number] [facility] Eosinophils (Bld) [#/Vol] 0.1 10*3/uL Normal 0.0-0.45 [facility] Comment on above: Performed By: #### C BC, MG, BMP ####[address] Eosinophils/100 WBC (Bld) 2.9 % Normal . [facility] Comment on above: Performed By: #### C BC, MG, BMP ####[address] Erythrocyte distribution width (RBC) [Ratio] 15.1 % High 12.0-14.8 [facility] Comment on above: Performed By: #### C BC, MG, BMP ####[address] Hematocrit (Bld) [Volume fraction] 29.5 % Low 38.8-50.0 [facility] Comment on above: Performed By: #### C BC, MG, BMP ####[address] Hemoglobin (Bld) [Mass/Vol] 9.7 g/dL Low 13.0-17.0 [facility] Comment on above: Performed By: #### C BC, MG, BMP ####[address] Lymphocytes (Bld) [#/Vol] 0.6 10*3/uL Low 1.00-4.8 [facility] Comment on above: Performed By: #### C BC, MG, BMP ####[address] Lymphocytes/100 WBC (Bld) 12.4 % Normal . [facility] Comment on above: Performed By: #### C BC, MG, BMP ####[address] MCH (RBC) [Entitic mass] 29.0 pg Normal 27.5-35.2 [facility] Comment on above: Performed By: #### C BC, MG, BMP ####[address] MCV (RBC) [Entitic vol] 88.4 fL Normal 83.5-101 [facility] Comment on above: Performed By: #### C BC, MG, BMP ####[address] Mean Corpuscular HGB Conc 32.8 g/dL Normal 32.5-35.6 [facility] Comment on above: Performed By: #### C BC MG, BMP ####[address] Monocytes (Bld) [#/Vol] 1.5 10*3/uL High 0.0-0.8 [facility] Comment on above: Performed By: #### C BC MG, BMP ####[address] Monocytes/100 WBC (Bld) 30.2 % Normal . [facility] Comment on above: Performed By: #### C BC MG, BMP ####[address] Neutrophils (Bld) [#/Vol] 2.7 10*3/uL Normal 1.8-7.7 [facility] Comment on above: Performed By: #### C BC MG, BMP ####[address] Neutrophils/100 WBC (Bld) 53.6 % Normal . [facility] Comment on above: Performed By: #### C BC MG, BMP ####[address] NRBC% 0.2 /100{WBC} Normal 0-0.5 [facility] Comment on above: Performed By: #### C BC, MG, BMP ####[address] Platelet mean volume (Bld) [Entitic vol] 7.4 fL Normal 6.6-10.1 [facility] Comment on above: Performed By: #### C BC, MG, BMP ####[address] Platelets (Bld) [#/Vol] 236 10*3/uL Normal 150-450 [facility] Comment on above: Performed By: #### C BC MG, BMP ####[address] RBC (Bld) [#/Vol] 3.34 10*6/uL Low 3.90-5.60 [facility] Comment on above: Performed By: #### C BC, MG, BMP ####[place] [id number] [place] [id number] [facility] WBC (Bld) [#/Vol] 4.9 10*3/uL Normal 4.1-10.5 [facility] Comment on above: Performed By: #### C BC, MG, BMP ####[place] [id number] [place] [id number] [facility] Glucose Poct Glucometerson 0 06-22-2023 Glucose [Mass/Vol] 319 mg/dL Normal [facility] Comment on above: Result Comment: [place] Glucose Reference Range is dependent on time and content of last meal. Glucose of more than 200 mg/dL in a nonstressed, ambulatory subject supports the diagnosis of Diabetes Mellitus.PERFORMED BY:[address] [place], [place] [phone] MEDICAL DIRECTORDEAN MCWILLIAMS M.D. Performed By: #### G LULS ####Point of Care testing, Commemt1 Glu2: Cleaned Meter Normal [facility] Comment on above: Result Comment: PERF ORMED BY:[place] [address] [address] [place], [place] [phone] MEDICAL DIRECTORDEAN MCWILLIAMS M.D. Performed By: #### G LULS ####Point of Care testing, Glucose [Mass/Vol] 106 mg/dL Normal [facility] Comment on above: Result Comment: [place] om Glucose Reference Range is dependent on time and content of last meal. Glucose of more than 200 mg/dL in a nonstressed, ambulatory subject supports the diagnosis of Diabetes Mellitus. Performed By: #### G LULS ####Point of Care testing, Commemt1 Glu2: Cleaned Meter Normal [facility] Comment on above: Result Comment: PERF ORMED BY:[place] [address] [address] [place], [place] [phone] MEDICAL DIRECTORDEAN MCWILLIAMS M.D. Performed By: #### G LULS ####Point of Care testing, Glucose [Mass/Vol] 140 mg/dL Normal [facility] Comment on above: Result Comment: [place] om Glucose Reference Range is dependent on time and content of last meal. Glucose of more than 200 mg/dL in a nonstressed, ambulatory subject supports the diagnosis of Diabetes Mellitus. Performed By: #### G LULS ####Point of Care testing, Glucose [Mass/Vol] 260 mg/dL Normal [facility] Comment on above: Result Comment: [place] om Glucose Reference Range is dependent on time and content of last meal. Glucose of more than 200 mg/dL in a nonstressed, ambulatory subject supports the diagnosis of Diabetes Mellitus.PERFORMED BY:[address] RODRIGUEZBensonElodiaADEFA[place], [place] [phone] MEDICAL DIRECTORDEAN MCWILLIAMS M.D. Performed By: #### G LULS ####Point of Care testing, Magnesiumon 06-22-2023 Magnesium [Mass/Vol] 2.1 mg/dL Normal 1.9-2.7 [facility] Comment on above: Result Comment: PERF ORMED BY:[address] [place], [place] [phone] MEDICAL DIRECTORDEAN MCWILLIAMS M.D. Performed By: #### C BC, MG, BMP ####[place] [id number] [facility] Superficial Wound Cultureon 06-22-2023 Superficial Wound Culture Normal [facility] Comment on above: Performed By: #### C USUP ####[place] [id number] [facility] Alanine aminotransferase [En zymatic activity/volume] in Serum or PlasmaOrdered By: Philip Chatman on 06-21-2023 ALT [Catalytic activity/Vol] 21 U/L Normal 7-52 [facility] Comment on above: Performed By: #### C BC, CUBLD, CMP, LACTIC, ESR, CRP ####[address] Albumin [Mass/volume] in Ser um or Plasma by Bromocresol green (BCG) dye binding methoOrdered By: Philip Chatman on 06-21-2023 Albumin BCG dye [Mass/Vol] 3.3 g/dL Low 3.5-5.7 [facility] Alkaline phosphatase [Enzyma tic activity/volume] in Serum or PlasmaOrdered By: Philip Chatman on 06-21-2023 ALP [Catalytic activity/Vol] 64 U/L Normal 34-104 [facility] Comment on above: Performed By: #### C BC, CUBLD, CMP, LACTIC, ESR, CRP ####[address] Aspartate aminotransferase [ Enzymatic activity/volume] in Serum or PlasmaOrdered By: Philip Chatman on 06-21-2023 AST [Catalytic activity/Vol] 35 U/L Normal 13-39 [facility] Comment on above: Performed By: #### C BC, CUBLD, CMP, LACTIC, ESR, CRP ####[address] Automated basophil %Ordered By: Philip Chatman on 06-21-2023 Basophils/100 WBC (Bld) 0.6 % Normal . [facility] Comment on above: Performed By: #### C BC, CUBLD, CMP, LACTIC, ESR, CRP ####[address] Automated basophil countOrde red By: Philip Chatman on 06-21-2023 Basophils (Bld) [#/Vol] 0.0 10*3/uL Normal 0.0-0.2 [facility] Comment on above: Performed By: #### C BC, CUBLD, CMP, LACTIC, ESR, CRP ####[address] Automated blood monocyte cou ntOrdered By: Philip Chatman on 06-21-2023 Monocytes (Bld) [#/Vol] 1.2 10*3/uL High 0.0-0.8 [facility] Comment on above: Performed By: #### C BC, CUBLD, CMP, LACTIC, ESR, CRP ####[facility] Automated eosinophil %Ordere d By: Philip Chatman on 06-21-2023 Eosinophils/100 WBC (Bld) 1.1 % Normal . [facility] Comment on above: Performed By: #### C BC, CUBLD, CMP, LACTIC, ESR, CRP ####[address] Automated eosinophil countOr dered By: Philip Chatman on 06-21-2023 Eosinophils (Bld) [#/Vol] 0.1 10*3/uL Normal 0.0-0.45 [facility] Comment on above: Performed By: #### C BC, CUBLD, CMP, LACTIC, ESR, CRP ####[address] Automated monocyte %Ordered By: Philip Chatman on 06-21-2023 Monocytes/100 WBC (Bld) 16.2 % Normal . [facility] Comment on above: Performed By: #### C BC, CUBLD, CMP, LACTIC, ESR, CRP ####[address] Automated neutrophil %Ordere d By: Philip Chatman on 06-21-2023 Neutrophils/100 WBC (Bld) 74.6 % Normal . [facility] Comment on above: Performed By: #### C BC, CUBLD, CMP, LACTIC, ESR, CRP ####[address] Bacterial blood cultureOrder ed By: Philip Chatman on 06-21-2023 Bacteria identified Cx Nom (Bld) Methicillin Resis Staph Aureus Abnormal [facility] Bilirubin.total [Mass/volume ] in Serum or PlasmaOrdered By: Philip Chatman on 06-21-2023 Bilirubin [Mass/Vol] 1.0 mg/dL Normal 0.3-1.0 [facility] Comment on above: Performed By: #### C BC, CUBLD, CMP, LACTIC, ESR, CRP ####[address] Blood Cultureon 06-21-2023 Bacteria identified Cx Nom (Bld) Normal [facility] Comment on above: Performed By: #### C BC, CUBLD, CMP, LACTIC, ESR, CRP ####[place] [id number] [facility] Bacteria identified Cx Nom (Bld) Normal [facility] Comment on above: Performed By: #### C BC, CUBLD, CMP, LACTIC, ESR, CRP ####[place] [id number] [facility] C reactive protein [Mass/vol ume] in Serum or PlasmaOrdered By: Philip Chatman on 06-21-2023 CRP [Mass/Vol] 25.6 mg/dL High 0.0-0.5 [facility] C-Reactive Proteinon 024 C-Reactive Protein 25.6 mg/dL High 0.0-0.5 [facility] Comment on above: Result Comment: PERF ORMED BY:[address] [place], [place] [phone] MEDICAL DIRECTORDEAN MCWILLIAMS M.D. Performed By: #### C BC, CUBLD, CMP, LACTIC, ESR, CRP ####[place] [id number] [facility] Calcium [Mass/volume] in Ser um or PlasmaOrdered By: Philip Chatman on 06-21-2023 Calcium [Mass/Vol] 9.4 mg/dL Normal 8.6-10.3 [facility] Comment on above: Performed By: #### C BC, CUBLD, CMP, LACTIC, ESR, CRP ####[place] [id number] [facility] Carbon dioxide, total [Moles /volume] in Serum or PlasmaOrdered By: Philip Chatman on 06-21-2023 CO2 [Moles/Vol] 30.6 mmol/L Normal 21.0-31.0 [facility] Comment on above: Performed By: #### C BC, CUBLD, CMP, LACTIC, ESR, CRP ####[address] [address] [place] Chloride [Moles/volume] in S bushra or PlasmaOrdered By: Philip Chatman on 06-21-2023 Chloride [Moles/Vol] 92 mmol/L Low 98-107 [facility] Comment on above: Performed By: #### C BC, CUBLD, CMP, LACTIC, ESR, CRP ####[address] Complete Blood Count Auto Di ffon 06-21-2023 Mean Corpuscular HGB Conc 33.5 g/dL Normal 32.5-35.6 [facility] Comment on above: Performed By: #### C BC, CUBLD, CMP, LACTIC, ESR, CRP ####[address] Monocytes/100 WBC (Bld) 24.17 % High 0.00-20.00 [facility] Comment on above: Result Comment: For adults in ED, MDW > 20.0 may be associated with a higher risk of sepsis during the first 12 hrs of hospital admission Performed By: #### C BC, CUBLD, CMP, LACTIC, ESR, CRP ####[address] NRBC% 0.1 /100{WBC} Normal 0-0.5 [facility] Comment on above: Performed By: #### C BC, CUBLD, CMP, LACTIC, ESR, CRP ####[address] Comprehensive Metabolic Pane raghu 06-21-2023 Albumin [Mass/Vol] 3.3 g/dL Low 3.5-5.7 [facility] Comment on above: Performed By: #### C BC, CUBLD, CMP, LACTIC, ESR, CRP ####[address] Creatinine Clr Calc Pharmacy 18.34 Normal [facility] Comment on above: Performed By: #### C BC, CUBLD, CMP, LACTIC, ESR, CRP ####[address] GFR/1.73 sq M.predicted MDRD (S/P/Bld) [Vol rate/Area] 13.678 mL/min/{1.73_m2} Normal [facility] Comment on above: Performed By: #### C BC, CUBLD, CMP, LACTIC, ESR, CRP ####[place] [id number] [facility] Creatinine [Mass/volume] in Serum or PlasmaOrdered By: Philip Chatman on 06-21-2023 Creatinine [Mass/Vol] 4.47 mg/dL High 0.70-1.30 [facility] Comment on above: Performed By: #### C BC, CUBLD, CMP, LACTIC, ESR, CRP ####[place] [id number] [facility] Erythrocyte Sedimentation Ra kunal 06-21-2023 ESR (Bld) [Velocity] 97 mm/h High 0-19 [facility] Comment on above: Result Comment: PERF ORMED BY:[address] [place], [place] [phone] MEDICAL DIRECTORDEAN MCWILLIAMS M.D. Performed By: #### C BC, CUBLD, CMP, LACTIC, ESR, CRP ####[place] [id number] [facility] Erythrocyte distribution wid th [Ratio] by Automated countOrdered By: Philip Chatman on 06-21-2023 Erythrocyte distribution width (RBC) [Ratio] 15.3 % High 12.0-14.8 [facility] Comment on above: Performed By: #### C BC, CUBLD, CMP, LACTIC, ESR, CRP ####[place] [id number] [facility] Erythrocyte sedimentation ra te by Photometric methodOrdered By: Philip Chatman on 06-21-2023 ESR Photometric method (Bld) [Velocity] 97 mm/hr High 0-19 [facility] Erythrocytes [#/volume] in B lood by Automated countOrdered By: Philip Chatman on 06-21-2023 RBC (Bld) [#/Vol] 3.83 10*6/uL Low 3.90-5.60 [facility] Comment on above: Performed By: #### C BC, CUBLD, CMP, LACTIC, ESR, CRP ####[place] [address] [place] [phone] [facility] Glucose Poct Glucometerson 0 06-21-2023 Glucose [Mass/Vol] 222 mg/dL Normal [facility] Comment on above: Result Comment: [place] om Glucose Reference Range is dependent on time and content of last meal. Glucose of more than 200 mg/dL in a nonstressed, ambulatory subject supports the diagnosis of Diabetes Mellitus.PERFORMED BY:[address] [place], [place] [phone] MEDICAL DIRECTORDEAN MCWILLIAMS M.D. Performed By: #### G DARLENE ####Point of Care testing, Glucose [Mass/volume] in Ser um or PlasmaOrdered By: Philip Chatman on 06-21-2023 Glucose [Mass/Vol] 178 mg/dL High 70-100 [facility] Comment on above: ADA recommended refe rence rangeRandom Glucose Reference Range is dependent on time and content of last meal. Glucose of more than 200 mg/dL in a nonstressed, ambulatory subject supports the diagnosis of Diabetes Mellitus. Result Comment: [place] om Glucose Reference Range is dependent on time and content of last meal. Glucose of more than 200 mg/dL in a nonstressed, ambulatory subject supports the diagnosis of Diabetes Mellitus. ADA recommended reference range Performed By: #### C BC, CUBLD, CMP, LACTIC, ESR, CRP ####[place] [id number] [place] [phone] [facility] Hematocrit [Volume Fraction] of Blood by Automated countOrdered By: Philip Chatman on 06-21-2023 Hematocrit (Bld) [Volume fraction] 33.5 % Low 38.8-50.0 [facility] Comment on above: Performed By: #### C BC, CUBLD, CMP, LACTIC, ESR, CRP ####[place] [address] [place] [phone] [facility] Hemoglobin [Mass/volume] in BloodOrdered By: Philip Chatman on 06-21-2023 Hemoglobin (Bld) [Mass/Vol] 11.2 g/dL Low 13.0-17.0 [facility] Comment on above: Performed By: #### C BC, CUBLD, CMP, LACTIC, ESR, CRP ####[facility] [place] [address] [facility] Lactate [Moles/volume] in Se rum or PlasmaOrdered By: Philip Chatman on 06-21-2023 Lactate [Moles/Vol] 2.5 mmol/L High 0.5-2.2 [facility] Comment on above: Critical Result : Ca lled to and read back by: RONALD JIN at: 06/22/2023 00:18:18 by:[id number] Lactate [Moles/Vol] 2.0 mmol/L Off scale high 0.5-2.2 [facility] Comment on above: Critical Result : Ca lled to and read back by: GRETEL DELGADO at: 06/21/2023 20:15:23 by:[id number] Result Comment: Crit ical Result : Called to and read back by: GRETEL DELGADO at: 06/21/2023 20:15:23 by:[id number] BY:[place] [address] [place] [place], [place] [phone] MEDICAL DIRECTORDEAN MCWILLIAMS M.D. Performed By: #### C BC, CUBLD, CMP, LACTIC, ESR, CRP ####[place] [address] [place] [address] [facility] Lactic Acid Reflexon 024 Lactic Acid Reflex 2.5 mmol/L Off scale high 0.5-2.2 [facility] Comment on above: Result Comment: Crit ical Result : Called to and read back by: RONALD JIN at: 06/22/2023 00:18:18 by:[id number] BY:[address] [place], [place] [phone] MEDICAL DIRECTORDEAN MCWILLIAMS M.D. Performed By: #### L ACTIC RFX ####[address] Leukocytes [#/volume] correc jennifer for nucleated erythrocytes in Blood by Automated counOrdered By: Philip Chatman on 06-21-2023 WBC corrected for nucl RBC Auto (Bld) [#/Vol] 7.3 10*3/uL 4.1-10.5 [facility] Leukocytes [#/volume] in Blo od by Automated countOrdered By: Philip Chatman on 06-21-2023 WBC (Bld) [#/Vol] 7.3 10*3/uL Normal 4.1-10.5 [facility] Comment on above: Performed By: #### C BC, CUBLD, CMP, LACTIC, ESR, CRP ####[address] Lymphocytes [#/volume] in Bl ood by Automated countOrdered By: Philip Chatman on 06-21-2023 Lymphocytes (Bld) [#/Vol] 0.5 10*3/uL Low 1.00-4.8 [facility] Comment on above: Performed By: #### C BC, CUBLD, CMP, LACTIC, ESR, CRP ####[address] Lymphocytes/100 leukocytes i n Blood by Automated countOrdered By: Philip Chatman on 06-21-2023 Lymphocytes/100 WBC (Bld) 7.5 % Normal . [facility] Comment on above: Performed By: #### C BC, CUBLD, CMP, LACTIC, ESR, CRP ####[address] MCH [Entitic mass] by Automa jennifer countOrdered By: Philip Chatman on 06-21-2023 MCH (RBC) [Entitic mass] 29.3 pg Normal 27.5-35.2 [facility] Comment on above: Performed By: #### C BC, CUBLD, CMP, LACTIC, ESR, CRP ####[address] MCHC Auto (RBC) [Mass/Vol]Or dered By: Philip Chatman on 06-21-2023 MCHC (RBC) [Mass/Vol] 33.5 g/dL 32.5-35.6 [facility] MCV [Entitic volume] by Auto mated countOrdered By: Philip Chatman on 06-21-2023 MCV (RBC) [Entitic vol] 87.4 fL Normal 83.5-101 [facility] Comment on above: Performed By: #### C BC, CUBLD, CMP, LACTIC, ESR, CRP ####[facility] [id number] Monocyte distribution width [Entitic volume] in Blood by AutomatedOrdered By: Philip Chatman on 06-21-2023 Monocyte distribution width Auto (Bld) [Entitic vol] 24.17 % High 0.00-20.00 [facility] Comment on above: For adults in ED, MD W > 20.0 may be associated with a higher risk of sepsis during the first 12 hrs of hospital admission Neutrophils [#/volume] in Bl ood by Automated countOrdered By: Philip Chatman on 06-21-2023 Neutrophils (Bld) [#/Vol] 5.4 10*3/uL Normal 1.8-7.7 [facility] Comment on above: Performed By: #### C BC, CUBLD, CMP, LACTIC, ESR, CRP ####[facility] [id number] No Panel InformationOrdered By: Philip Chatman on 06-21-2023 Bacterial ID (NA Multiplex Assay) Methicillin Resis Staph Aureus Abnormal [facility] Estimated GFR (CKD-EPI) 13.678 mL/Min [facility] Creatinine Clearance (Chem 18.34 [facility] Nucleated erythrocytes [Pres ence] in Blood by Automated countOrdered By: Philip Chatman on 06-21-2023 Nucleated RBC Auto Ql (Bld) 0.1 /100{WBC} 0-0.5 [facility] Platelet mean volume [Entiti c volume] in Blood by Automated countOrdered By: Philip Chatman on 06-21-2023 Platelet mean volume (Bld) [Entitic vol] 7.4 fL Normal 6.6-10.1 [facility] Comment on above: Performed By: #### C BC, CUBLD, CMP, LACTIC, ESR, CRP ####[address] Platelets [#/volume] in Bloo d by Automated countOrdered By: Philip Chatman on 06-21-2023 Platelets (Bld) [#/Vol] 311 10*3/uL Normal 150-450 [facility] Comment on above: Performed By: #### C BC, CUBLD, CMP, LACTIC, ESR, CRP ####[address] Potassium [Moles/volume] in Serum or PlasmaOrdered By: Philip Chatman on 06-21-2023 Potassium [Moles/Vol] 4.0 mmol/L Normal 3.5-5.1 [facility] Comment on above: Performed By: #### C BC, CUBLD, CMP, LACTIC, ESR, CRP ####[address] Protein [Mass/volume] in Ser um or PlasmaOrdered By: Philip Chatman on 06-21-2023 Protein [Mass/Vol] 8.3 g/dL Normal 6.4-8.9 [facility] Comment on above: Performed By: #### C BC, CUBLD, CMP, LACTIC, ESR, CRP ####[address] Serum globulin measurement b y calculation (mass/volume)Ordered By: Philip Chatman on 06-21-2023 Globulin (S) [Mass/Vol] 5.0 g/dL [facility] Comment on above: Performed By: #### C BC, CUBLD, CMP, LACTIC, ESR, CRP ####[place] [id number] [facility] Serum or plasma albumin/glob ulin mass ratioOrdered By: Philpi Chatman on 06-21-2023 Albumin/Globulin [Mass ratio] 0.7 {ratio} [facility] Comment on above: Performed By: #### C BC, CUBLD, CMP, LACTIC, ESR, CRP ####[address] [place] [address] [facility] Serum or plasma anion gap de terminationOrdered By: Philip Chatman on 06-21-2023 Anion gap [Moles/Vol] 13.4 mmol/L Normal 6.0-15.0 [facility] Comment on above: Performed By: #### C BC, CUBLD, CMP, LACTIC, ESR, CRP ####[facility] [place] [phone] [facility] Sodium [Moles/volume] in Ser um or PlasmaOrdered By: Philip Compa on 06-21-2023 Sodium [Moles/Vol] 132 mmol/L Low 136-145 [facility] Comment on above: Performed By: #### C BC, CUBLD, CMP, LACTIC, ESR, CRP ####[facility] [place] [address] [facility] US PVR Lower EXT Complete Bi [...] M.D. Transcribed by: JASPREET Technologist: TK Normal [facility] Urea nitrogen [Mass/volume] in Serum or PlasmaOrdered By: Philip Chatman on 06-21-2023 Urea nitrogen [Mass/Vol] 13 mg/dL Normal - [facility] Comment on above: Performed By: #### C BC, CUBLD, CMP, LACTIC, ESR, CRP ####[facility] [address] [place] [address] [facility] XR foot LT min 3V*on 024 XR foot LT min 3V* Normal [facility] Consent for Treatmenton Consent for Treatment [id number]#1.00TIFF Normal [facility] Physician Orderon 05-29-2023 Physician Order [id number]#1.00TIFF Normal [facility] Consent for Treatmenton 05-12 Consent for Treatment [id number]#1.00TIFF Normal [facility] Heart and Vascular Office/Cl inic Noteon 05-27-2023 [...] nonhealing. He had a PVR done in [facility]. Will obtain those to review and interpret. 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 Normal [facility] Comment on above: Result Comment: Elec tronically Signed By: Dorian FISH, Greg Lopez\.br\Date and Time Signed: 05/27/23 09:41 EDT Outside Radiologyon 05-27-19 24 Outside Radiology [id number]#1.00TIFF Normal [facility] Outside Radiology [id number]#1.00TIFF Normal [facility] Physician Orderon 05-27-2023 Physician Order [id number]#1.00TIFF Normal [facility] No Panel Informationon 04-22 C-Reactive Protein, Quantitative 2.85 mg/dL [facility] Basic Metabolic Panelon Creatinine Clr Calc Pharmacy 13.63 Normal [facility] Comment on above: Result Comment: PERF ORMED BY:[address] [place], [place] [phone] MEDICAL DIRECTORDEAN MCWILLIAMS M.D. Performed By: #### B MP ####[address] [place] [address] [facility] GFR/1.73 sq M.predicted MDRD (S/P/Bld) [Vol rate/Area] 8.416 mL/min/{1.73_m2} Normal [facility] Comment on above: Performed By: #### B MP ####[address] [address] [place] Calcium [Mass/volume] in Ser um or PlasmaOrdered By: Alon Santiago on 04-16-2023 Calcium [Mass/Vol] 9.0 mg/dL Normal 8.6-10.3 [facility] Comment on above: Performed By: #### B MP ####[address] [address] [facility] Capillary blood glucose mike urement by glucometer (mass/volume)Ordered By: Alon Santiago on 04-16-2023 Glucose [Mass/Vol] 188 mg/dL Normal [facility] Comment on above: Random Glucose Refer ence Range is dependent on time and content of last meal. Glucose of more than 200 mg/dL in a nonstressed, ambulatory subject supports the diagnosis of Diabetes Mellitus. Result Comment: [place] om Glucose Reference Range is dependent on time and content of last meal. Glucose of more than 200 mg/dL in a nonstressed, ambulatory subject supports the diagnosis of Diabetes Mellitus.PERFORMED BY:[address] [place], [place] [phone] MEDICAL DIRECTORDEAN MCWILLIAMS M.D. Performed By: #### G DARLENE ####Point of Care testing, Carbon dioxide, total [Moles /volume] in Serum or PlasmaOrdered By: Alon Santiago on 04-16-2023 CO2 [Moles/Vol] 30.1 mmol/L Normal 21.0-31.0 [facility] Comment on above: Performed By: #### B MP ####[address] [address] [facility] Chloride [Moles/volume] in S bushra or PlasmaOrdered By: Alon Santiago on 04-16-2023 Chloride [Moles/Vol] 97 mmol/L Low 98-107 [facility] Comment on above: Performed By: #### B MP ####[address] [address] [facility] Creatinine [Mass/volume] in Serum or PlasmaOrdered By: Alon Santiago on 04-16-2023 Creatinine [Mass/Vol] 6.70 mg/dL Significan t change up 0.70-1.30 [facility] Comment on above: Delta: 10.23 on Performed By: #### B MP ####[address] [place] [address] [facility] ECG 12 lead ECGon 04-16-2023 ECG 12 lead ECG Normal [facility] Glucose Poct Glucometerson 0 04-16-2023 Commemt1 Glu2: Cleaned Meter Normal [facility] Comment on above: Result Comment: PERF ORMED BY:[facility] [place] [phone] MEDICAL DIRECTORDEAN MCWILLIAMS M.D. Performed By: #### G LULS ####Point of Care testing, Glucose [Mass/Vol] 244 mg/dL Normal [facility] Comment on above: Result Comment: [place] om Glucose Reference Range is dependent on time and content of last meal. Glucose of more than 200 mg/dL in a nonstressed, ambulatory subject supports the diagnosis of Diabetes Mellitus. Performed By: #### G LULS ####Point of Care testing, Glucose [Mass/volume] in Ser um or PlasmaOrdered By: Alon Santiago on 04-16-2023 Glucose [Mass/Vol] 218 mg/dL Significant change up 70-100 [facility] Comment on above: Delta: 98 on [id number] recommended reference rangeRandom Glucose Reference Range is dependent on time and content of last meal. Glucose of more than 200 mg/dL in a nonstressed, ambulatory subject supports the diagnosis of Diabetes Mellitus. Result Comment: [place] Glucose Reference Range is dependent on time and content of last meal. Glucose of more than 200 mg/dL in a nonstressed, ambulatory subject supports the diagnosis of Diabetes Mellitus. ADA recommended reference range Performed By: #### B MP ####[facility] [address] Valentineec[facility] health [place] [address] [facility] No Panel InformationOrdered By: Alon Santiago on 04-16-2023 Estimated GFR (CKD-EPI) 8.416 mL/Min [facility] Pharmacy Creatinine Clearance (Chem 13.63 [facility] Bedside Glucose Comment Glu2: cleaned meter [facility] Potassium [Moles/volume] in Serum or PlasmaOrdered By: Alon Santiago on 04-16-2023 Potassium [Moles/Vol] 5.4 mmol/L High 3.5-5.1 [facility] Comment on above: Performed By: #### B MP ####[address] [place] [address] [facility] Serum or plasma anion gap de terminationOrdered By: Obaydah Daromar on 04-16-2023 Anion gap [Moles/Vol] 12.3 mmol/L Normal 6.0-15.0 [facility] Comment on above: Performed By: #### B MP ####[id number] [facility] Sodium [Moles/volume] in Ser um or PlasmaOrdered By: Obcalebdah Daromar on 04-16-2023 Sodium [Moles/Vol] 134 mmol/L Low 136-145 [facility] Comment on above: Performed By: #### B MP ####[address] [address] [facility] Urea nitrogen [Mass/volume] in Serum or PlasmaOrdered By: Obcalebdah Daromar on 04-16-2023 Urea nitrogen [Mass/Vol] 22 mg/dL Normal 7-25 [facility] Comment on above: Performed By: #### B MP ####[address] [address] [facility] Activated partial thrombopla stin time (aPTT) in platelet poor plasma by coagulation aOrdered By: Obcalebdah Donisomar on 04-15-2023 aPTT Coag (PPP) [Time] 28.3 s 25.1-36.5 [facility] Comment on above: A hematocrit value g reater than 55% may lead to inaccurate results in coagulation testing. Patients having hematocrit values >55% require a special collection tube for coagulation studies. Please contact the laboratory at [phone] for redraw instructions. Basic Metabolic Panelon Anion gap [Moles/Vol] 15.8 mmol/L High 6.0-15.0 [facility] Comment on above: Performed By: #### M G, CBCNO, BMP ####[address] [address] [facility] Calcium [Mass/Vol] 9.3 mg/dL Normal 8.6-10.3 [facility] Comment on above: Performed By: #### REBECCA Bae, BMP ####[address] [place] [id number] [facility] Chloride [Moles/Vol] 98 mmol/L Normal 98-107 [facility] Comment on above: Performed By: #### REBECCA Bae, BMP ####[id number] [facility] CO2 [Moles/Vol] 25.5 mmol/L Normal 21.0-31.0 [facility] Comment on above: Performed By: #### REBECCA Bae, BMP ####[id number] [facility] Creatinine [Mass/Vol] 10.23 mg/dL High 0.70-1.30 [facility] Comment on above: Performed By: #### REBECCA Bae, BMP ####[id number] [facility] Creatinine Clr Calc Pharmacy 8.89 Normal [facility] Comment on above: Performed By: #### REBECCA Bae, BMP ####[id number] [facility] GFR/1.73 sq M.predicted MDRD (S/P/Bld) [Vol rate/Area] 5.065 mL/min/{1.73_m2} Normal [facility] Comment on above: Performed By: #### REBECCA Bae, BMP ####[id number] [facility] Glucose [Mass/Vol] 98 mg/dL Normal 70-100 [facility] Comment on above: Result Comment: [place] Glucose Reference Range is dependent on time and content of last meal. Glucose of more than 200 mg/dL in a nonstressed, ambulatory subject supports the diagnosis of Diabetes Mellitus. ADA recommended reference range Performed By: #### REBECCA Bae, BMP ####[id number] [facility] Potassium [Moles/Vol] 5.3 mmol/L High 3.5-5.1 [facility] Comment on above: Performed By: #### M Debbie, CBCNO, BMP ####[id number] [facility] Sodium [Moles/Vol] 134 mmol/L Low 136-145 [facility] Comment on above: Performed By: #### M G, CBCNO, BMP ####[id number] [facility] Urea nitrogen [Mass/Vol] 37 mg/dL High 7-25 [facility] Comment on above: Performed By: #### M G, CBCNO, BMP ####[id number] [facility] C reactive protein [Mass/vol ume] in Serum or PlasmaOrdered By: Alfredo Acosta on 04-15-2023 CRP [Mass/Vol] 4.2 mg/dL 0.0-0.5 [facility] C-Reactive Proteinon 024 C-Reactive Protein 4.2 mg/dL High 0.0-0.5 [facility] Comment on above: Result Comment: PERF ORMED BY:[address] [place], [place] [phone] MEDICAL DIRECTORDEAN MCWILLIAMS M.D. Performed By: #### C RP ####[address] [address] [facility] Coagulation Profileon 2023 aPTT Coag (Bld) [Time] 28.3 s Normal 25.1-36.5 [facility] Comment on above: Result Comment: A he matocrit value greater than 55% may lead to inaccurate results in coagulation testing. Patients having hematocrit values >55% require a special collection tube for coagulation studies. Please contact the laboratory at [phone] for redraw instructions.PERFORMED BY:[address] [place], [place] [phone] MEDICAL DIRECTORDEAN MCWILLIAMS M.D. Performed By: #### P P ####[address] [address] [facility] Erythrocyte distribution wid th [Ratio] by Automated countOrdered By: Gabriel Gould on 04-15-2023 Erythrocyte distribution width (RBC) [Ratio] 15.4 % High 12.0-14.8 [facility] Comment on above: Performed By: #### REBECCA Bae BMP ####[address] [place] [address] [facility] Erythrocytes [#/volume] in B lood by Automated countOrdered By: Gabriel Gould on 04-15-2023 RBC (Bld) [#/Vol] 3.20 10*6/uL Low 3.90-5.60 [facility] Comment on above: Performed By: #### REBECCA Bae BMP ####[address] [place] [address] [facility] Glucose Poct Glucometerson 0 04-15-2023 Commemt1 Glu2: Cleaned Meter Normal [facility] Comment on above: Result Comment: PERF ORMED BY:[address] [place]AVALAElodiaADE, [place] [phone] MEDICAL DIRECTORDEAN MCWILLIAMS M.D. Performed By: #### G LULS ####Point of Care testing, Glucose [Mass/Vol] 224 mg/dL Normal [facility] Comment on above: Result Comment: [place] Glucose Reference Range is dependent on time and content of last meal. Glucose of more than 200 mg/dL in a nonstressed, ambulatory subject supports the diagnosis of Diabetes Mellitus. Performed By: #### G LULS ####Point of Care testing, Commemt1 Glu2: Cleaned Meter Normal [facility] Comment on above: Result Comment: PERF ORMED BY:[address] [place]ENN[place]FA[place], [place] [phone] MEDICAL DIRECTORDEAN MCWILLIAMS M.D. Performed By: #### G LULS ####Point of Care testing, Glucose [Mass/Vol] 197 mg/dL Normal [facility] Comment on above: Result Comment: [place] Glucose Reference Range is dependent on time and content of last meal. Glucose of more than 200 mg/dL in a nonstressed, ambulatory subject supports the diagnosis of Diabetes Mellitus. Performed By: #### G DARLENE ####Point of Care testing, Glucose [Mass/Vol] 101 mg/dL Normal [facility] Comment on above: Result Comment: [facility] Glucose Reference Range is dependent on time and content of last meal. Glucose of more than 200 mg/dL in a nonstressed, ambulatory subject supports the diagnosis of Diabetes Mellitus.PERFORMED BY:[address] [place], [place] [phone] MEDICAL DIRECTORDEAN MCWILLIAMS M.D. Performed By: #### G DARLENE ####Point of Care testing, Hematocrit [Volume Fraction] of Blood by Automated countOrdered By: Gabriel Gould on 04-15-2023 Hematocrit (Bld) [Volume fraction] 29.4 % Low 38.8-50.0 [facility] Comment on above: Performed By: #### REBECCA Bae BMP ####[id number] [facility] Hemoglobin [Mass/volume] in BloodOrdered By: Gabriel Gould on 04-15-2023 Hemoglobin (Bld) [Mass/Vol] 9.9 g/dL Low 13.0-17.0 [facility] Comment on above: Performed By: #### REBECCA Bae BMP ####[id number] [facility] Hemogram CBC Without Diffon 04-15-2023 Mean Corpuscular HGB Conc 33.8 g/dL Normal 32.5-35.6 [facility] Comment on above: Performed By: #### REBECCA Bae BMP ####[id number] [facility] WBC (Bld) [#/Vol] 6.7 10*3/uL Normal 4.1-10.5 [facility] Comment on above: Performed By: #### REBECCA Bae, BMP ####[id number] [facility] INR in Platelet poor plasma by Coagulation assayOrdered By: Alon Santiago on 04-15-2023 INR Coag (PPP) [Relative time] 0.9 {INR} Normal [facility] Comment on above: INR Therapeutic Rang e [...] - 4.5 Performed By: #### P P ####[facility] [address] Leukocytes [#/volume] correc jennifer for nucleated erythrocytes in Blood by Automated counOrdered By: Gabriel Gould on 04-15-2023 WBC corrected for nucl RBC Auto (Bld) [#/Vol] 6.7 10*3/uL 4.1-10.5 [facility] MCH [Entitic mass] by Automa jennifer countOrdered By: Gabriel Gould on 04-15-2023 MCH (RBC) [Entitic mass] 31.0 pg Normal 27.5-35.2 [facility] Comment on above: Performed By: #### M G, CBCNO, BMP ####[facility] [id number] [facility] MCHC Auto (RBC) [Mass/Vol]Or dered By: Gabriel Gould on 04-15-2023 MCHC (RBC) [Mass/Vol] 33.8 g/dL 32.5-35.6 [facility] MCV [Entitic volume] by Auto mated countOrdered By: Gabriel Gould on 04-15-2023 MCV (RBC) [Entitic vol] 91.8 fL Normal 83.5-101 [facility] Comment on above: Performed By: #### REBECCA Bae BMP ####[address] [place] [address] [facility] Magnesium [Mass/volume] in S bushra or PlasmaOrdered By: Gabriel Gould on 04-15-2023 Magnesium [Mass/Vol] 2.2 mg/dL Normal 1.9-2.7 [facility] Comment on above: Result Comment: PERF ORMED BY:[address] [place], [place] [phone] MEDICAL DIRECTORDEAN MCWILLIAMS M.D. Performed By: #### REBECCA Bae BMP ####[address] [address] [facility] Platelet mean volume [Entiti c volume] in Blood by Automated countOrdered By: Gabriel Gould on 04-15-2023 Platelet mean volume (Bld) [Entitic vol] 7.6 fL Normal 6.6-10.1 [facility] Comment on above: Result Comment: PERF ORMED BY:[address] [place], [place] [phone] MEDICAL DIRECTORDEAN MCWILLIAMS M.D. Performed By: #### REBECCA Bae BMP ####[address] [address] [facility] Platelets [#/volume] in Bloo d by Automated countOrdered By: Gabriel Gould on 04-15-2023 Platelets (Bld) [#/Vol] 246 10*3/uL Normal 150-450 [facility] Comment on above: Performed By: #### REBECCA Bae BMP ####[address] [address] [facility] Prothrombin time (PT)Ordered By: Alon Santiago on 04-15-2023 PT Coag (PPP) [Time] 11.0 s Normal 9.0-12.9 [facility] Comment on above: A hematocrit value g reater than 55% may lead to inaccurate results in coagulation testing. Patients having hematocrit values >55% require a special collection tube for coagulation studies. Please contact the laboratory at [phone] for redraw instructions. Result Comment: A he matocrit value greater than 55% may lead to inaccurate results in coagulation testing. Patients having hematocrit values >55% require a special collection tube for coagulation studies. Please contact the laboratory at [phone] for redraw instructions. Performed By: #### P P ####[address] [address] [facility] Glucose Poct Glucometerson 0 04-14-2023 Glucose [Mass/Vol] 201 mg/dL Normal [facility] Comment on above: Result Comment: [facility] Glucose Reference Range is dependent on time and content of last meal. Glucose of more than 200 mg/dL in a nonstressed, ambulatory subject supports the diagnosis of Diabetes Mellitus.PERFORMED BY:[address] [place]ER[place]ensonElodiaW[place], [place] [phone] MEDICAL JAKE MCWILLIAMS M.D. Performed By: #### G LULS ####Point of Care testing, Glucose [Mass/Vol] 182 mg/dL Normal [facility] Comment on above: Result Comment: [facility] Glucose Reference Range is dependent on time and content of last meal. Glucose of more than 200 mg/dL in a nonstressed, ambulatory subject supports the diagnosis of Diabetes Mellitus.PERFORMED BY:[address] [place]ERBensonElodiaW[place], [place] [phone] MEDICAL JAKE MCWILLIAMS M.D. Performed By: #### G LULS ####Point of Care testing, Glucose [Mass/Vol] 267 mg/dL Normal [facility] Comment on above: Result Comment: [facility] Glucose Reference Range is dependent on time and content of last meal. Glucose of more than 200 mg/dL in a nonstressed, ambulatory subject supports the diagnosis of Diabetes Mellitus.PERFORMED BY:[address] [place]enson[place]odia[place], [place] [phone] MEDICAL DIRECTORJIANLAN SUN M.D. Performed By: #### G LULS ####Point of Care testing, Glucose [Mass/Vol] 109 mg/dL Normal [facility] Comment on above: Result Comment: [facility] Glucose Reference Range is dependent on time and content of last meal. Glucose of more than 200 mg/dL in a nonstressed, ambulatory subject supports the diagnosis of Diabetes Mellitus.PERFORMED BY:[address] [place], [place] [phone] MEDICAL DIRECTORDEAN MCWILLIAMS M.D. Performed By: #### G LULS ####Point of Care testing, Basic Metabolic Panelon Anion gap [Moles/Vol] 16.3 mmol/L High 6.0-15.0 e [facility] Comment on above: Performed By: #### B MP, MG ####[address] [address] [facility] Calcium [Mass/Vol] 9.2 mg/dL Normal 8.6-10.3 [facility] Comment on above: Performed By: #### B MP, MG ####[address] [address] [facility] Chloride [Moles/Vol] 96 mmol/L Low 98-107 [facility] Comment on above: Performed By: #### B MP, MG ####[address] [address] [facility] CO2 [Moles/Vol] 27.5 mmol/L Normal 21.0-31.0 [facility] Comment on above: Performed By: #### B MP, MG ####[address] [address] [facility] Creatinine [Mass/Vol] 6.49 mg/dL Significan t change up 0.70-1.30 [facility] Comment on above: Performed By: #### B MP, MG ####[address] [address] [facility] Creatinine Clr Calc Pharmacy 13.69 Normal [facility] Comment on above: Performed By: #### B MP, MG ####[place] [id number] [facility] GFR/1.73 sq M.predicted MDRD (S/P/Bld) [Vol rate/Area] 8.744 mL/min/{1.73_m2} Normal [facility] Comment on above: Performed By: #### B MP, MG ####[address] Glucose [Mass/Vol] 120 mg/dL High 70-100 [facility] Comment on above: Result Comment: [facility] Glucose Reference Range is dependent on time and content of last meal. Glucose of more than 200 mg/dL in a nonstressed, ambulatory subject supports the diagnosis of Diabetes Mellitus. ADA recommended reference range Performed By: #### B MP, MG ####[place] [id number] [facility] Potassium [Moles/Vol] 4.8 mmol/L Normal 3.5-5.1 [facility] Comment on above: Performed By: #### B MP, MG ####[address] Sodium [Moles/Vol] 135 mmol/L Low 136-145 [facility] Comment on above: Performed By: #### B MP, MG ####[place] [id number] [facility] Urea nitrogen [Mass/Vol] 22 mg/dL Normal 7-25 [facility] Comment on above: Performed By: #### B MP, MG ####[place] [id number] [facility] ECG 12 lead ECGon 04-13-2023 ECG 12 lead ECG Normal [facility] Glucose Poct Glucometerson 0 04-13-2023 Glucose [Mass/Vol] 164 mg/dL Normal [facility] Comment on above: Result Comment: [facility] Glucose Reference Range is dependent on time and content of last meal. Glucose of more than 200 mg/dL in a nonstressed, ambulatory subject supports the diagnosis of Diabetes Mellitus.PERFORMED BY:[address] [place], [place] [phone] MEDICAL DIRECTORANLAN SUN M.D. Performed By: #### G LULS ####Point of Care testing, Glucose [Mass/Vol] 254 mg/dL Normal [facility] Comment on above: Result Comment: [place] om Glucose Reference Range is dependent on time and content of last meal. Glucose of more than 200 mg/dL in a nonstressed, ambulatory subject supports the diagnosis of Diabetes Mellitus.PERFORMED BY:[address] [place], [place] [phone] MEDICAL JAKE MCWILLIAMS M.D. Performed By: #### G LULS ####Point of Care testing, Commemt1 Glu2: Cleaned Meter Normal [facility] Comment on above: Result Comment: PERF ORMED BY:[address] [place], [place] [phone] MEDICAL JAKE MCWILLIAMS M.D. Performed By: #### G LULS ####Point of Care testing, Glucose [Mass/Vol] 286 mg/dL Normal [facility] Comment on above: Result Comment: [place] om Glucose Reference Range is dependent on time and content of last meal. Glucose of more than 200 mg/dL in a nonstressed, ambulatory subject supports the diagnosis of Diabetes Mellitus. Performed By: #### G LULS ####Point of Care testing, Glucose [Mass/Vol] 126 mg/dL Normal [facility] Comment on above: Result Comment: [place] om Glucose Reference Range is dependent on time and content of last meal. Glucose of more than 200 mg/dL in a nonstressed, ambulatory subject supports the diagnosis of Diabetes Mellitus.PERFORMED BY:[address] RODRIGUEZNikkyADEFAIRFIELD, [place] [phone] PAIGE MCWILLIAMS M.D. Performed By: #### G LULS ####Point of Care testing, Hemogram CBC Without Diffon 04-13-2023 Erythrocyte distribution width (RBC) [Ratio] 15.2 % High 12.0-14.8 [facility] Comment on above: Performed By: #### C BCNO ####[place] [id number] [facility] Hematocrit (Bld) [Volume fraction] 29.7 % Low 38.8-50.0 [facility] Comment on above: Performed By: #### C BCNO ####[place] [id number] [facility] Hemoglobin (Bld) [Mass/Vol] 10.1 g/dL Low 13.0-17.0 [facility] Comment on above: Performed By: #### C BCNO ####[place] [id number] [facility] MCH (RBC) [Entitic mass] 31.0 pg Normal 27.5-35.2 [facility] Comment on above: Performed By: #### C BCNO ####[place] [id number] [facility] MCV (RBC) [Entitic vol] 91.4 fL Normal 83.5-101 [facility] Comment on above: Performed By: #### C BCNO ####[place] [id number] [facility] Mean Corpuscular HGB Conc 33.9 g/dL Normal 32.5-35.6 [facility] Comment on above: Performed By: #### C BCNO ####[place] [id number] [facility] Platelet mean volume (Bld) [Entitic vol] 7.9 fL Normal 6.6-10.1 [facility] Comment on above: Result Comment: PERF ORMED BY:[address] [place], [place] [phone] MEDICAL DIRECTORDEAN MCWILLIAMS M.D. Performed By: #### C BCNO ####[place] [id number] [facility] Platelets (Bld) [#/Vol] 249 10*3/uL Normal 150-450 [facility] Comment on above: Performed By: #### C BCNO ####[place] [id number] [facility] RBC (Bld) [#/Vol] 3.25 10*6/uL Low 3.90-5.60 [facility] Comment on above: Performed By: #### C BCNO ####[place] [id number] [facility] WBC (Bld) [#/Vol] 5.9 10*3/uL Normal 4.1-10.5 [facility] Comment on above: Performed By: #### C BCNO ####[place] [id number] [facility] Magnesiumon 04-13-2023 Magnesium [Mass/Vol] 1.8 mg/dL Low 1.9-2.7 [facility] Comment on above: Result Comment: PERF ORMED BY:[address] [place], [place] [phone] MEDICAL DIRECTORDEAN MCWILLIAMS M.D. Performed By: #### B MP, MG ####[place] [id number] [facility] Basic Metabolic Panelon Anion gap [Moles/Vol] 17.0 mmol/L High 6.0-15.0 [facility] Comment on above: Performed By: #### Ezekiel Lewis, BMP ####[place] [id number] [facility] Calcium [Mass/Vol] 8.9 mg/dL Normal 8.6-10.3 [facility] Comment on above: Performed By: #### M Debbie, BMP ####[place] [id number] [facility] Chloride [Moles/Vol] 95 mmol/L Low 98-107 [facility] Comment on above: Performed By: #### M G, BMP ####[place] [id number] [facility] CO2 [Moles/Vol] 27.2 mmol/L Normal 21.0-31.0 [facility] Comment on above: Performed By: #### Ezekiel Lewis, BMP ####[address] [place] [address] [place] Creatinine [Mass/Vol] 9.40 mg/dL Significan t change up 0.70-1.30 [facility] Comment on above: Performed By: #### Ezekiel Lewis, BMP ####[address] Creatinine Clr Calc Pharmacy 9.45 Normal [facility] Comment on above: Performed By: #### Ezekiel Lewis, BMP ####[address] GFR/1.73 sq M.predicted MDRD (S/P/Bld) [Vol rate/Area] 5.606 mL/min/{1.73_m2} Normal [facility] Comment on above: Performed By: #### Ezekiel Lewis, BMP ####[address] Glucose [Mass/Vol] 204 mg/dL Significant change up 70-100 [facility] Comment on above: Result Comment: [place] Glucose Reference Range is dependent on time and content of last meal. Glucose of more than 200 mg/dL in a nonstressed, ambulatory subject supports the diagnosis of Diabetes Mellitus. ADA recommended reference range Performed By: #### Ezekiel Lewis, BMP ####[address] Potassium [Moles/Vol] 5.2 mmol/L High 3.5-5.1 [facility] Comment on above: Performed By: #### Ezekiel Lewis, BMP ####[address] Sodium [Moles/Vol] 134 mmol/L Low 136-145 [facility] Comment on above: Performed By: #### Ezekiel Lewis, BMP ####[address] Urea nitrogen [Mass/Vol] 42 mg/dL High 7-25 [facility] Comment on above: Performed By: #### Ezekiel Lewis, BMP ####[address] Clostridioides difficile tox in B tcdB gene [Presence] in Stool by IRENE with probe deteOrdered By: Gabriel Gould on 04-12-2023 C. difficile toxin B tcdB gene IRENE+probe Ql (Stl) Negative Negative [facility] Comment on above: Testing performed by RT-PCR Clostridium Difficileon 03- Clostridium Difficile Negative Normal Negative [facility] Comment on above: Order Comment: > or = to 3 loose/watery stools in the last 24 HRS? Y Is patient on promotility agents or tube feeding? N Result Comment: Test ing performed by RT-PCRPERFORMED BY:[address] [place], [place] [phone] MEDICAL DIRECTORDEAN MCWILLIAMS M.D. Performed By: #### C DT ####[address] [place] [address] [facility] Glucose Poct Glucometerson 0 04-12-2023 Glucose [Mass/Vol] 265 mg/dL Normal [facility] Comment on above: Result Comment: [place] Glucose Reference Range is dependent on time and content of last meal. Glucose of more than 200 mg/dL in a nonstressed, ambulatory subject supports the diagnosis of Diabetes Mellitus.PERFORMED BY:[place] [address] [address]AVALAElodiaADEFA[place], [place] [phone] MEDICAL JAKE MCWILLIAMS M.D. Performed By: #### G LULS ####Point of Care testing, Glucose [Mass/Vol] 207 mg/dL Normal [facility] Comment on above: Result Comment: [facility] Glucose Reference Range is dependent on time and content of last meal. Glucose of more than 200 mg/dL in a nonstressed, ambulatory subject supports the diagnosis of Diabetes Mellitus.PERFORMED BY:[address] [place]AVIERFA[place], [place] [phone] MEDICAL DIRECTORDEAN MCWILLIAMS M.D. Performed By: #### G LULS ####Point of Care testing, Commemt1 Glu2: Cleaned Meter Normal [facility] Comment on above: Result Comment: PERF ORMED BY:[place] [address] [address] [place]LIZFA[place], [place] [phone] MEDICAL DIRECTORDEAN MCWILLIAMS M.D. Performed By: #### G LULS ####Point of Care testing, Glucose [Mass/Vol] 130 mg/dL Normal [facility] Comment on above: Result Comment: [place] om Glucose Reference Range is dependent on time and content of last meal. Glucose of more than 200 mg/dL in a nonstressed, ambulatory subject supports the diagnosis of Diabetes Mellitus. Performed By: #### G LULS ####Point of Care testing, Glucose [Mass/Vol] 129 mg/dL Normal [facility] Comment on above: Result Comment: [place] om Glucose Reference Range is dependent on time and content of last meal. Glucose of more than 200 mg/dL in a nonstressed, ambulatory subject supports the diagnosis of Diabetes Mellitus.PERFORMED BY:[address] [place]FA[place], [place] [phone] MEDICAL DIRECTORDEAN MCWILLIAMS M.D. Performed By: #### G LULS ####Point of Care testing, Glucose [Mass/Vol] 224 mg/dL Normal [facility] Comment on above: Result Comment: [place] om Glucose Reference Range is dependent on time and content of last meal. Glucose of more than 200 mg/dL in a nonstressed, ambulatory subject supports the diagnosis of Diabetes Mellitus.PERFORMED BY:[place] [address] [address] [place]AVIERFA[place], [place] [phone] MEDICAL DIRECTORDEAN MCWILLIAMS M.D. Performed By: #### G LULS ####Point of Care testing, Hemogram CBC Without Diffon 04-12-2023 Erythrocyte distribution width (RBC) [Ratio] 14.8 % Normal 12.0-14.8 [facility] Comment on above: Performed By: #### C BCNO ####[address] [address] [facility] Hematocrit (Bld) [Volume fraction] 29.9 % Low 38.8-50.0 [facility] Comment on above: Performed By: #### C BCNO ####[address] [address] [place] Hemoglobin (Bld) [Mass/Vol] 10.1 g/dL Low 13.0-17.0 [facility] Comment on above: Performed By: #### C BCNO ####[address] MCH (RBC) [Entitic mass] 30.8 pg Normal 27.5-35.2 [facility] Comment on above: Performed By: #### C BCNO ####[address] MCV (RBC) [Entitic vol] 91.4 fL Normal 83.5-101 [facility] Comment on above: Performed By: #### C BCNO ####[address] Mean Corpuscular HGB Conc 33.7 g/dL Normal 32.5-35.6 [facility] Comment on above: Performed By: #### C BCNO ####[address] Platelet mean volume (Bld) [Entitic vol] 8.0 fL Normal 6.6-10.1 [facility] Comment on above: Result Comment: PERF ORMED BY:[address] [place], [place] [phone] MEDICAL DIRECTORDEAN MCWILLIAMS M.D. Performed By: #### C BCNO ####[address] Platelets (Bld) [#/Vol] 230 10*3/uL Normal 150-450 [facility] Comment on above: Performed By: #### C BCNO ####[address] RBC (Bld) [#/Vol] 3.27 10*6/uL Low 3.90-5.60 [facility] Comment on above: Performed By: #### C BCNO ####[address] WBC (Bld) [#/Vol] 6.6 10*3/uL Normal 4.1-10.5 [facility] Comment on above: Performed By: #### C BCNO ####[place] [id number] [facility] Magnesiumon 04-12-2023 Magnesium [Mass/Vol] 2.0 mg/dL Normal 1.9-2.7 [facility] Comment on above: Result Comment: PERF ORMED BY:[address] [place], [place] [phone] MEDICAL DIRECTORDEAN MCWILLIAMS M.D. Performed By: #### M G, BMP ####[place] [id number] [facility] Basic Metabolic Panelon 03-15 Anion gap [Moles/Vol] 16.4 mmol/L High 6.0-15.0 Th e [facility] Comment on above: Performed By: #### B MP, MG ####[address] Calcium [Mass/Vol] 9.3 mg/dL Normal 8.6-10.3 [facility] Comment on above: Performed By: #### B MP, MG ####[address] Chloride [Moles/Vol] 96 mmol/L Low 98-107 [facility] Comment on above: Performed By: #### B MP, MG ####[place] [id number] [facility] CO2 [Moles/Vol] 29.6 mmol/L Normal 21.0-31.0 [facility] Comment on above: Performed By: #### B MP, MG ####[address] Creatinine [Mass/Vol] 7.14 mg/dL Significan t change up 0.70-1.30 [facility] Comment on above: Performed By: #### B MP, MG ####[address] Creatinine Clr Calc Pharmacy 12.48 Normal [facility] Comment on above: Performed By: #### B MP, MG ####[place] [address] [place] GFR/1.73 sq M.predicted MDRD (S/P/Bld) [Vol rate/Area] 7.798 mL/min/{1.73_m2} Normal [facility] Comment on above: Performed By: #### B MP, MG ####[address] Glucose [Mass/Vol] 64 mg/dL Low 70-100 [facility] Comment on above: Result Comment: [facility] Glucose Reference Range is dependent on time and content of last meal. Glucose of more than 200 mg/dL in a nonstressed, ambulatory subject supports the diagnosis of Diabetes Mellitus. ADA recommended reference range Performed By: #### B MP, MG ####[address] Potassium [Moles/Vol] 5.0 mmol/L Normal 3.5-5.1 [facility] Comment on above: Performed By: #### B MP, MG ####[address] Sodium [Moles/Vol] 137 mmol/L Normal 136-145 [facility] Comment on above: Performed By: #### B MP, MG ####[address] Urea nitrogen [Mass/Vol] 34 mg/dL High 7-25 [facility] Comment on above: Performed By: #### B MP, MG ####[place] [id number] [facility] Glucose Poct Glucometerson 0 04-11-2023 Glucose [Mass/Vol] 389 mg/dL Normal [facility] Comment on above: Result Comment: [facility] Glucose Reference Range is dependent on time and content of last meal. Glucose of more than 200 mg/dL in a nonstressed, ambulatory subject supports the diagnosis of Diabetes Mellitus.PERFORMED BY:[address]FA[place], [place] [phone] MEDICAL DIRECTORDEAN MCWILLIAMS M.D. Performed By: #### G LULS ####Point of Care testing, Commemt1 Normal [facility] Comment on above: Result Comment: Glu2 : WILL NOTIFY DR/RN Performed By: #### G LULS ####Point of Care testing, Commemt2 Cleaned Meter Normal [facility] Comment on above: Result Comment: PERF ORMED BY:[address] [place]FA[place], [place] [phone] MEDICAL DIRECTORDEAN MCWILLIAMS M.D. Performed By: #### G LULS ####Point of Care testing, Glucose [Mass/Vol] 457 mg/dL Off scale high Th e [facility] Comment on above: Result Comment: [place] om Glucose Reference Range is dependent on time and content of last meal. Glucose of more than 200 mg/dL in a nonstressed, ambulatory subject supports the diagnosis of Diabetes Mellitus. Performed By: #### G LULS ####Point of Care testing, Glucose [Mass/Vol] 78 mg/dL Normal [facility] Comment on above: Result Comment: [place] om Glucose Reference Range is dependent on time and content of last meal. Glucose of more than 200 mg/dL in a nonstressed, ambulatory subject supports the diagnosis of Diabetes Mellitus.PERFORMED BY:[address] [place], [place] [phone] MEDICAL DIRECTORDEAN MCWILLIAMS M.D. Performed By: #### G LULS ####Point of Care testing, Hemogram CBC Without Diffon 04-11-2023 Erythrocyte distribution width (RBC) [Ratio] 15.2 % High 12.0-14.8 [facility] Comment on above: Performed By: #### C BCNO ####[address] [address] [facility] Hematocrit (Bld) [Volume fraction] 32.3 % Low 38.8-50.0 [facility] Comment on above: Performed By: #### C BCNO ####[place] [id number] [facility] Hemoglobin (Bld) [Mass/Vol] 10.8 g/dL Low 13.0-17.0 [facility] Comment on above: Performed By: #### C BCNO ####[place] [id number] [facility] MCH (RBC) [Entitic mass] 30.6 pg Normal 27.5-35.2 [facility] Comment on above: Performed By: #### C BCNO ####[place] [id number] [facility] MCV (RBC) [Entitic vol] 91.5 fL Normal 83.5-101 [facility] Comment on above: Performed By: #### C BCNO ####[address] Mean Corpuscular HGB Conc 33.4 g/dL Normal 32.5-35.6 [facility] Comment on above: Performed By: #### C BCNO ####[address] Platelet mean volume (Bld) [Entitic vol] 8.3 fL Normal 6.6-10.1 [facility] Comment on above: Result Comment: PERF ORMED BY:[address] [place]enson[place], [place] [phone] MEDICAL DIRECTORDEAN MCWILLIAMS M.D. Performed By: #### C BCNO ####[place] [id number] [facility] Platelets (Bld) [#/Vol] 228 10*3/uL Normal 150-450 [facility] Comment on above: Performed By: #### C BCNO ####[place] [id number] [facility] RBC (Bld) [#/Vol] 3.53 10*6/uL Low 3.90-5.60 [facility] Comment on above: Performed By: #### C BCNO ####[address] [place] [address] [facility] WBC (Bld) [#/Vol] 7.0 10*3/uL Normal 4.1-10.5 [facility] Comment on above: Performed By: #### C BCNO ####[place] [id number] [facility] Magnesiumon 04-11-2023 Magnesium [Mass/Vol] 2.1 mg/dL Normal 1.9-2.7 [facility] Comment on above: Result Comment: PERF ORMED BY:[place] [address] [address] [place]CUTTL[place], [place] [phone] MEDICAL DIRECTORDEAN MCWILLIAMS M.D. Performed By: #### B MP, MG ####[place] [id number] [facility] No Panel InformationOrdered By: Gabriel Gould on 04-11-2023 Bedside Glucose #2 Comment Cleaned meter [facility] A1C with Estimated Average G luon 04-10-2023 Glucose [Mass/Vol] 235 mg/dL Normal [facility] Comment on above: Result Comment: PERF ORMED BY:[place] [address] [address] [place], [place] [phone] MEDICAL DIRECTORDEAN MCWILLIAMS M.D. Performed By: #### C BC, CRP, BMP, LIPID, A1C WTH eA, MG ####[address] Automated basophil %Ordered By: Gabriel Gould on 04-10-2023 Basophils/100 WBC (Bld) 0.4 % Normal . [facility] Comment on above: Performed By: #### C BC, CRP, BMP, LIPID, A1C WTH eA, MG ####[address] Automated basophil countOrde red By: Gabriel Gould on 04-10-2023 Basophils (Bld) [#/Vol] 0.0 10*3/uL Normal 0.0-0.2 [facility] Comment on above: Result Comment: PERF ORMED BY:[address] [place], [place] [phone] MEDICAL DIRECTORDEAN MCWILLIAMS M.D. Performed By: #### C BC, CRP, BMP, LIPID, A1C WTH eA, MG ####[address] Automated blood monocyte cou ntOrdered By: Gabriel Gould on 04-10-2023 Monocytes (Bld) [#/Vol] 0.8 10*3/uL Normal 0.0-0.8 [facility] Comment on above: Performed By: #### C BC, CRP, BMP, LIPID, A1C WTH eA, MG ####[address] Automated eosinophil %Ordere d By: Gabriel Gould on 04-10-2023 Eosinophils/100 WBC (Bld) 0.5 % Normal . [facility] Comment on above: Performed By: #### C BC, CRP, BMP, LIPID, A1C WTH eA, MG ####[address] Automated eosinophil countOr dered By: Gabriel Gould on 04-10-2023 Eosinophils (Bld) [#/Vol] 0.0 10*3/uL Normal 0.0-0.45 [facility] Comment on above: Performed By: #### C BC, CRP, BMP, LIPID, A1C WTH eA, MG ####[address] Automated monocyte %Ordered By: Gabriel Gould on 04-10-2023 Monocytes/100 WBC (Bld) 10.6 % Normal . [facility] Comment on above: Performed By: #### C BC, CRP, BMP, LIPID, A1C WTH eA, MG ####[address] Automated neutrophil %Ordere d By: Gabriel Gould on 04-10-2023 Neutrophils/100 WBC (Bld) 84.9 % Normal . [facility] Comment on above: Performed By: #### C BC, CRP, BMP, LIPID, A1C WTH eA, MG ####[place] [id number] [facility] Basic Metabolic Panelon 03-15 Anion gap [Moles/Vol] 16.8 mmol/L High 6.0-15.0 Th e [facility] Comment on above: Order Comment: FASTI NG Y Performed By: #### C BC, CRP, BMP, LIPID, A1C WTH eA, MG ####[place] [id number] [facility] Calcium [Mass/Vol] 9.2 mg/dL Normal 8.6-10.3 [facility] Comment on above: Order Comment: FASTI NG Y Performed By: #### C BC, CRP, BMP, LIPID, A1C WTH eA, MG ####[address] Chloride [Moles/Vol] 95 mmol/L Low 98-107 [facility] Comment on above: Order Comment: FASTI NG Y Performed By: #### C BC, CRP, BMP, LIPID, A1C WTH eA, MG ####[address] CO2 [Moles/Vol] 25.2 mmol/L Normal 21.0-31.0 [facility] Comment on above: Order Comment: FASTI NG Y Performed By: #### C BC, CRP, BMP, LIPID, A1C WTH eA, MG ####[place] [id number] [facility] Creatinine [Mass/Vol] 9.83 mg/dL Significan t change up 0.70-1.30 [facility] Comment on above: Order Comment: FASTI NG Y Performed By: #### C BC, CRP, BMP, LIPID, A1C WTH eA, MG ####[place] [id number] [facility] Creatinine Clr Calc Pharmacy 8.58 Normal [facility] Comment on above: Order Comment: FASTI NG Y Performed By: #### C BC, CRP, BMP, LIPID, A1C WTH eA, MG ####[place] [id number] [place] [phone] [facility] GFR/1.73 sq M.predicted MDRD (S/P/Bld) [Vol rate/Area] 5.313 mL/min/{1.73_m2} Normal [facility] Comment on above: Order Comment: FASTI NG Y Performed By: #### C BC, CRP, BMP, LIPID, A1C WTH eA, MG ####[place] [id number] [place] [id number] [facility] Glucose [Mass/Vol] 115 mg/dL High 70-100 [facility] Comment on above: Order Comment: FASTI NG Y Result Comment: [facility] Glucose Reference Range is dependent on time and content of last meal. Glucose of more than 200 mg/dL in a nonstressed, ambulatory subject supports the diagnosis of Diabetes Mellitus. ADA recommended reference range Performed By: #### C BC, CRP, BMP, LIPID, A1C WTH eA, MG ####[place] [id number] [facility] Potassium [Moles/Vol] 5.0 mmol/L Normal 3.5-5.1 [facility] Comment on above: Order Comment: FASTI NG Y Performed By: #### C BC, CRP, BMP, LIPID, A1C WTH eA, MG ####[place] [id number] [place] [phone] [facility] Sodium [Moles/Vol] 132 mmol/L Low 136-145 [facility] Comment on above: Order Comment: FASTI NG Y Performed By: #### C BC, CRP, BMP, LIPID, A1C WTH eA, MG ####[place] [id number] [place] Urea nitrogen [Mass/Vol] 40 mg/dL High 7-25 [facility] Comment on above: Order Comment: FASTI NG Y Performed By: #### C BC, CRP, BMP, LIPID, A1C WTH eA, MG ####[place] [id number] [place] C-Reactive Proteinon 04-10-2 024 C-Reactive Protein 12.5 mg/dL High 0.0-0.5 [facility] Comment on above: Order Comment: FASTI SHANNON Y Performed By: #### C BC, CRP, BMP, LIPID, A1C WTH eA, MG ####[place] [id number] Cholesterol [Mass/volume] in Serum or PlasmaOrdered By: Gabriel Gould on 04-10-2023 Cholesterol [Mass/Vol] 74 mg/dL Low 140-200 [facility] Comment on above: Chol less than 200 m g/dl low riskChol 201-239 mg/dl borderline riskChol 240 mg/dl and greater high risk Order Comment: FASTI NG Y Result Comment: Chol less than 200 mg/dl low risk Chol 201-239 mg/dl borderline risk Chol 240 mg/dl and greater high risk Performed By: #### C BC, CRP, BMP, LIPID, A1C WTH eA, MG ####[place] [id number] [place] [phone] [facility] Cholesterol in LDL Calc [Mas s/Vol]Ordered By: Gabriel Gould on 04-10-2023 Cholesterol in LDL [Mass/Vol] 21 mg/dL 0-100 [facility] Comment on above: LDL ATP III CLASSIFI CATIONLDL less than 100 mg/dL OptimalLDL 100-129 mg/dL Near or above optimalLDL 130-159 mg/dL Borderline highLDL 160-189 mg/dL HighLDL greater than 189 mg/dL Very high Cholesterol in VLDL Calc [Ma ss/Vol]Ordered By: Gabriel Gould on 04-10-2023 Cholesterol in VLDL [Mass/Vol] 13 mg/dL [facility] Complete Blood Count Auto Di ffon 04-10-2023 Erythrocyte distribution width (RBC) [Ratio] 15.1 % High 12.0-14.8 [facility] Comment on above: Performed By: #### C BC, CRP, BMP, LIPID, A1C WTH eA, MG ####[place] [id number] [place] [id number] [facility] Hematocrit (Bld) [Volume fraction] 30.7 % Low 38.8-50.0 [facility] Comment on above: Performed By: #### C BC, CRP, BMP, LIPID, A1C WTH eA, MG ####[address] Hemoglobin (Bld) [Mass/Vol] 10.4 g/dL Low 13.0-17.0 [facility] Comment on above: Performed By: #### C BC, CRP, BMP, LIPID, A1C WTH eA, MG ####[address] MCH (RBC) [Entitic mass] 31.1 pg Normal 27.5-35.2 [facility] Comment on above: Performed By: #### C BC, CRP, BMP, LIPID, A1C WTH eA, MG ####[address] MCV (RBC) [Entitic vol] 91.9 fL Normal 83.5-101 [facility] Comment on above: Performed By: #### C BC, CRP, BMP, LIPID, A1C WTH eA, MG ####[address] Mean Corpuscular HGB Conc 33.8 g/dL Normal 32.5-35.6 [facility] Comment on above: Performed By: #### C BC, CRP, BMP, LIPID, A1C WTH eA, MG ####[address] NRBC% 0.1 /100{WBC} Normal 0-0.5 [facility] Comment on above: Performed By: #### C BC, CRP, BMP, LIPID, A1C WTH eA, MG ####[address] Platelet mean volume (Bld) [Entitic vol] 8.5 fL Normal 6.6-10.1 [facility] Comment on above: Performed By: #### C BC, CRP, BMP, LIPID, A1C WTH eA, MG ####[address] Platelets (Bld) [#/Vol] 215 10*3/uL Normal 150-450 [facility] Comment on above: Performed By: #### C BC, CRP, BMP, LIPID, A1C WTH eA, MG ####[place] [id number] [facility] RBC (Bld) [#/Vol] 3.34 10*6/uL Low 3.90-5.60 [facility] Comment on above: Performed By: #### C BC, CRP, BMP, LIPID, A1C WTH eA, MG ####[place] [id number] [facility] Erythrocyte Sedimentation Ra kunal 04-10-2023 ESR (Bld) [Velocity] 68 mm/h High 0-19 [facility] Comment on above: Result Comment: PERF ORMED BY:[place] [address] [place], [place] [phone] MEDICAL DIRECTORDEAN MCWILLIAMS M.D. Performed By: #### E SR ####[place] [id number] [facility] Erythrocyte sedimentation ra te by Photometric methodOrdered By: Alfredo Acosta on 04-10-2023 ESR Photometric method (Bld) [Velocity] 68 mm/hr 0-19 [facility] Glucose Poct Glucometerson 0 04-10-2023 Glucose [Mass/Vol] 398 mg/dL Normal [facility] Comment on above: Result Comment: [facility] Glucose Reference Range is dependent on time and content of last meal. Glucose of more than 200 mg/dL in a nonstressed, ambulatory subject supports the diagnosis of Diabetes Mellitus.PERFORMED BY:[address] [place] [address] [place], [place] [phone] MEDICAL DIRECTORDEAN MCWILLIAMS M.D. Performed By: #### G LULS ####Point of Care testing, Glucose [Mass/Vol] 308 mg/dL Normal [facility] Comment on above: Result Comment: [facility] Glucose Reference Range is dependent on time and content of last meal. Glucose of more than 200 mg/dL in a nonstressed, ambulatory subject supports the diagnosis of Diabetes Mellitus.PERFORMED BY:[place] [address] [place], [place] [phone] MEDICAL DIRECTORDEAN MCWILLIAMS M.D. Performed By: #### G LULS ####Point of Care testing, Commemt1 Glu2: Cleaned Meter Normal [facility] Comment on above: Result Comment: PERF ORMED BY:[place] [address] [place], [place] [phone] MEDICAL DIRECTORDEAN MCWILLIAMS M.D. Performed By: #### G LULS ####Point of Care testing, Glucose [Mass/Vol] 137 mg/dL Normal [facility] Comment on above: Result Comment: [place] Glucose Reference Range is dependent on time and content of last meal. Glucose of more than 200 mg/dL in a nonstressed, ambulatory subject supports the diagnosis of Diabetes Mellitus. Performed By: #### G LULS ####Point of Care testing, Commemt1 Glu2: Cleaned Meter Normal [facility] Comment on above: Result Comment: PERF ORMED BY:[place] [address] [place], [place] [phone] MEDICAL DIRECTORDEAN MCWILLIAMS M.D. Performed By: #### G LULS ####Point of Care testing, Glucose [Mass/Vol] 117 mg/dL Normal [facility] Comment on above: Result Comment: [place] [facility] Glucose Reference Range is dependent on [...] from glycated hemoglobin (Bld) [Mass/Vol] 235 mg/dL [facility] Hemoglobin A1c percentageOrd ered By: Gabriel Gould on 04-10-2023 HbA1c (Bld) [Mass fraction] 9.8 % High 4.3-5.6 [facility] Comment on above: Increased risk for d iabetes: 5.7 - 6.4diabetes: >6.4glycemic control for adults with diabetes: <7.0 Result Comment: Incr eased risk for diabetes: 5.7 - 6.4 diabetes: >6.4 glycemic control for adults with diabetes: <7.0 Performed By: #### C BC, CRP, BMP, LIPID, A1C WTH eA, MG ####[place] [id number] Leukocytes [#/volume] in Blo od by Automated countOrdered By: Gabriel Gould on 04-10-2023 WBC (Bld) [#/Vol] 7.8 10*3/uL Normal 4.1-10.5 [facility] Comment on above: Performed By: #### C BC, CRP, BMP, LIPID, A1C WTH eA, MG ####[facility] [place] [id number] [facility] Lipid Panelon 04-10-2023 LDL Cholesterol,Calculated 21 mg/dL Normal 0-100 [facility] Comment on above: Order Comment: JAMES Esparza Result Comment: LDL ATP III CLASSIFICATION LDL less than 100 mg/dL Optimal LDL 100-129 mg/dL Near or above optimal LDL 130-159 mg/dL Borderline high LDL 160-189 mg/dL High LDL greater than 189 mg/dL Very high Performed By: #### C BC, CRP, BMP, LIPID, A1C WTH eA, MG ####[address] Triglyceride w/Reflex 66 mg/dL Normal 0-149 [facility] Comment on above: Order Comment: JAMES Esparza Result Comment: TRIG ATP III CLASSIFICATION TRIG less than 150 mg/dL Normal TRIG 150-199 mg/dL Borderline high TRIG 200-500 mg/dL High TRIG greater than 500 mg/dL Very high Standard traceable to the Center for Disease Conrtrol and Prevention (CDC) test method. Performed By: #### C BC, CRP, BMP, LIPID, A1C WTH eA, MG ####[facility] [place] [id number] [facility] VLDL CHOLESTEROL 13 mg/dL Normal [facility] Comment on above: Order Comment: JAMES Esparza Performed By: #### C BC, CRP, BMP, LIPID, A1C WTH eA, MG ####[place] [id number] [place] [phone] [facility] Lymphocytes [#/volume] in Bl ood by Automated countOrdered By: Gabriel Gould on 04-10-2023 Lymphocytes (Bld) [#/Vol] 0.3 10*3/uL Low 1.00-4.8 [facility] Comment on above: Performed By: #### C BC, CRP, BMP, LIPID, A1C WTH eA, MG ####[place] [id number] [place] [id number] [facility] Lymphocytes/100 leukocytes i n Blood by Automated countOrdered By: Gabriel Gould on 04-10-2023 Lymphocytes/100 WBC (Bld) 3.6 % Normal . [facility] Comment on above: Performed By: #### C BC, CRP, BMP, LIPID, A1C WTH eA, MG ####[address] MR foot LT wo conon 04-10-19 24 MR foot LT wo con Normal [facility] Magnesiumon 04-10-2023 Magnesium [Mass/Vol] 2.0 mg/dL Normal 1.9-2.7 [facility] Comment on above: Order Comment: FASTI NG Y Performed By: #### C BC, CRP, BMP, LIPID, A1C WTH eA, MG ####[place] [id number] [place] [id number] [facility] Neutrophils [#/volume] in Bl ood by Automated countOrdered By: Gabriel Gould on 04-10-2023 Neutrophils (Bld) [#/Vol] 6.6 10*3/uL Normal 1.8-7.7 [facility] Comment on above: Performed By: #### C BC, CRP, BMP, LIPID, A1C WTH eA, MG ####[place] [id number] [place] [phone] [facility] Nucleated erythrocytes [Pres ence] in Blood by Automated countOrdered By: Gabriel Gould on 04-10-2023 Nucleated RBC Auto Ql (Bld) 0.1 /100{WBC} 0-0.5 [facility] Serum or plasma high density lipoprotein (HDL) cholesterol measurementOrdered By: Gabriel Gould on 04-10-2023 Cholesterol in HDL [Mass/Vol] 40 mg/dL Normal 23-92 [facility] Comment on above: HDL CHOL ATP-III CLA SSIFICATION Cardiovascular RiskHDL > or equal to 60 mg/dL LOWHDL < 40 mg/dL HIGH Order Comment: JAMES Esparza Result Comment: HDL CHOL ATP-III CLASSIFICATION Cardiovascular Risk HDL > or equal to 60 mg/dL LOW HDL < 40 mg/dL HIGH Performed By: #### C BC, CRP, BMP, LIPID, A1C WTH eA, MG ####[facility] [address] [place] [address] [facility] Serum or plasma total choles terol/high density lipoprotein (HDL) cholesterol mass ratOrdered By: Gabriel Gould on 04-10-2023 Cholesterol.total/Chol esterol in HDL [Mass ratio] 1.9 {ratio} Normal <5.0 [facility] Comment on above: Order Comment: JAMES Esparza Result Comment: PERF ORMED BY:[facility] [place] [address] [place], [place] [phone] MEDICAL DIRECTORDEAN MCWILLIAMS M.D. Performed By: #### C BC, CRP, BMP, LIPID, A1C WTH eA, MG ####[facility] [address] [place] [address] [facility] Triglyceride [Mass/volume] i n Serum or PlasmaOrdered By: Gabriel Gould on 04-10-2023 Triglyceride [Mass/Vol] 66 mg/dL 0-149 [facility] Comment on above: TRIG ATP III CLASSIF ICATIONTRIG less than 150 mg/dL NormalTRIG 150-199 mg/dL Borderline highTRIG 200-500 mg/dL High TRIG greater than 500 mg/dL Very highStandard traceable to the Center for Disease Conrtrol and Prevention (CDC) test method. US arterial pvr rest Amber US arterial pvr rest LE Normal [facility] US venous duplex LE LTon US venous duplex LE LT Normal Th e [facility] Anisocytosis [Presence] in B lood by Light microscopyOrdered By: Mikey Allen on 04-09-2023 Anisocytosis Ql (Bld) Slight Normal [facility] Comment on above: Performed By: #### E SR, SCAN CBC, MG, BMP ####[address] Bacteria identified Aer cx N om (Unsp spec)Ordered By: Mikey Allen on 04-09-2023 Superficial Wound Culture Proteus mirabilis [facility] Bacterial blood cultureOrder ed By: Mikey Allen on 04-09-2023 Bacteria identified Cx Nom (Bld) NO GROWTH 5 DAYS [facility] Bacteria identified Cx Nom (Bld) NO GROWTH 5 DAYS [facility] Basic Metabolic Panelon 03-15 Anion gap [Moles/Vol] 21.2 mmol/L High 6.0-15.0 [facility] Comment on above: Performed By: #### E SR, SCAN CBC, MG, BMP ####[address] Calcium [Mass/Vol] 9.8 mg/dL Normal 8.6-10.3 [facility] Comment on above: Performed By: #### E SR, SCAN CBC, MG, BMP ####[address] Chloride [Moles/Vol] 93 mmol/L Low 98-107 [facility] Comment on above: Performed By: #### E SR, SCAN CBC, MG, BMP ####[address] CO2 [Moles/Vol] 25.3 mmol/L Normal 21.0-31.0 [facility] Comment on above: Performed By: #### E SR, SCAN CBC, MG, BMP ####[address] Creatinine [Mass/Vol] 8.07 mg/dL High 0.70-1.30 [facility] Comment on above: Performed By: #### E SR, SCAN CBC, MG, BMP ####[address] [address] [place] Creatinine Clr Calc Pharmacy 10.36 Normal [facility] Comment on above: Result Comment: PERF ORMED BY:[address] [place], [place] [phone] MEDICAL DIRECTORDEAN MCWILLIAMS M.D. Performed By: #### E SR, SCAN CBC, MG, BMP ####[address] GFR/1.73 sq M.predicted MDRD (S/P/Bld) [Vol rate/Area] 6.732 mL/min/{1.73_m2} Normal [facility] Comment on above: Performed By: #### E SR, SCAN CBC, MG, BMP ####[address] Glucose [Mass/Vol] 175 mg/dL High 70-100 [facility] Comment on above: Result Comment: [place] Glucose Reference Range is dependent on time and content of last meal. Glucose of more than 200 mg/dL in a nonstressed, ambulatory subject supports the diagnosis of Diabetes Mellitus. ADA recommended reference range Performed By: #### E SR, SCAN CBC, MG, BMP ####[address] Potassium [Moles/Vol] 5.5 mmol/L High 3.5-5.1 [facility] Comment on above: Performed By: #### E SR, SCAN CBC, MG, BMP ####[address] Sodium [Moles/Vol] 134 mmol/L Low 136-145 [facility] Comment on above: Performed By: #### E SR, SCAN CBC, MG, BMP ####[address] Urea nitrogen [Mass/Vol] 36 mg/dL High 7-25 [facility] Comment on above: Performed By: #### E SR, SCAN CBC, MG, BMP ####[address] Blood Cultureon 04-09-2023 Bacteria identified Cx Nom (Bld) NO GROWTH 5 DAYS PERFORMED BY: [facility] [address] [place] [address] PATHOLOGIST LEAK PATCHER DEAN MCWILLIAMS M.D. Normal [facility] Comment on above: Performed By: #### C UBLD, LACTIC ####[address] [address] [facility] Bacteria identified Cx Nom (Bld) NO GROWTH 5 DAYS PERFORMED BY: [facility] [address] [place] [address] PATHOLOGIST LEAK PATCHER DEAN MCWILLIAMS M.D. Normal [facility] Comment on above: Performed By: #### C UBLD, LACTIC ####[address] [address] [facility] Erythrocyte Sedimentation Ra uknal 04-09-2023 ESR (Bld) [Velocity] 91 mm/h High 0-19 [facility] Comment on above: Result Comment: PERF ORMED BY:[address] [place], [place] [phone] MEDICAL DIRECTORDEAN MCWILLIAMS M.D. Performed By: #### E SR, SCAN CBC, MG, BMP ####[address] [address] [facility] Glucose Poct Glucometerson 0 04-09-2023 Commemt1 Glu2: Cleaned Meter Normal [facility] Comment on above: Result Comment: PERF ORMED BY:[address] [place], [place] [phone] MEDICAL DIRECTORDEAN MCWILLIAMS M.D. Performed By: #### G LULS ####Point of Care testing, Glucose [Mass/Vol] 275 mg/dL Normal [facility] Comment on above: Result Comment: [place] Glucose Reference Range is dependent on time and content of last meal. Glucose of more than 200 mg/dL in a nonstressed, ambulatory subject supports the diagnosis of Diabetes Mellitus. Performed By: #### G LULS ####Point of Care testing, Hypochromia LM Ql (Bld)Order ed By: Mikey Allen on 04-09-2023 Hypochromia Ql (Bld) Slight [facility] Lactate [Moles/volume] in Se rum or PlasmaOrdered By: Mikey Allen on 04-09-2023 Lactate [Moles/Vol] 1.1 mmol/L Normal 0.5-2.2 [facility] Comment on above: Result Comment: PERF ORMED BY:[address] [place], [place] [phone] MEDICAL DIRECTORDEAN MCWILLIAMS M.D. Performed By: #### C UBLD, LACTIC ####[place] [address] [place] [address] [facility] Magnesiumon 04-09-2023 Magnesium [Mass/Vol] 2.1 mg/dL Normal 1.9-2.7 [facility] Comment on above: Result Comment: PERF ORMED BY:[address] [place], [place] [phone] MEDICAL DIRECTORDEAN MCWILLIAMS M.D. Performed By: #### E SR, SCAN CBC, MG, BMP ####[place] [address] [place] [address] [facility] Monocyte distribution width [Entitic volume] in Blood by AutomatedOrdered By: Mikey Allen on 04-09-2023 Monocyte distribution width Auto (Bld) [Entitic vol] 22.19 % 0.00-20.00 [facility] Comment on above: For adults in ED, MD W > 20.0 may be associated with a higher risk of sepsis during the first 12 hrs of hospital admission Ovalocyte detectionOrdered B y: Mikey Allen on 04-09-2023 Ovalocytes LM Ql (Bld) Slight [facility] Platelet adequacy [Presence] in Blood by Light microscopyOrdered By: Mikey Allen on 04-09-2023 Platelets LM Ql (Bld) Normal Normal [facility] Platelet morphology finding [Identifier] in BloodOrdered By: Mikey Allen on 04-09-2023 Platelet morphology finding Nom (Bld) Normal Normal [facility] Poikilocytosis [Presence] in Blood by Light microscopyOrdered By: Mikey Allen on 04-09-2023 Poikilocytosis LM Ql (Bld) Slight [facility] RBC morphologyOrdered By: Sa forbeslacy Alejandro on 04-09-2023 RBC morphology finding Nom (Bld) N/A [facility] Scan and CBCon 04-09-2023 Basophils (Bld) [#/Vol] 0.0 10*3/uL Normal 0.0-0.2 [facility] Comment on above: Performed By: #### E SR, SCAN CBC, MG, BMP ####[address] Basophils/100 WBC (Bld) 0.5 % Normal . [facility] Comment on above: Performed By: #### E SR, SCAN CBC, MG, BMP ####[address] Eosinophils (Bld) [#/Vol] 0.1 10*3/uL Normal 0.0-0.45 [facility] Comment on above: Performed By: #### E SR, SCAN CBC, MG, BMP ####[address] Eosinophils/100 WBC (Bld) 1.1 % Normal . [facility] Comment on above: Performed By: #### E SR, SCAN CBC, MG, BMP ####[address] Erythrocyte distribution width (RBC) [Ratio] 15.3 % High 12.0-14.8 [facility] Comment on above: Performed By: #### E SR, SCAN CBC, MG, BMP ####[address] Hematocrit (Bld) [Volume fraction] 33.3 % Low 38.8-50.0 [facility] Comment on above: Performed By: #### E SR, SCAN CBC, MG, BMP ####[address] Hemoglobin (Bld) [Mass/Vol] 11.2 g/dL Low 13.0-17.0 [facility] Comment on above: Performed By: #### E SR, SCAN CBC, MG, BMP ####[address] Hypochromasia Slight Normal [facility] Comment on above: Performed By: #### E SR, SCAN CBC, MG, BMP ####[address] Lymphocytes (Bld) [#/Vol] 0.8 10*3/uL Low 1.00-4.8 [facility] Comment on above: Performed By: #### E SR, SCAN CBC, MG, BMP ####[address] Lymphocytes/100 WBC (Bld) 9.2 % Normal . [facility] Comment on above: Performed By: #### E SR, SCAN CBC, MG, BMP ####[address] MCH (RBC) [Entitic mass] 30.8 pg Normal 27.5-35.2 [facility] Comment on above: Performed By: #### E SR, SCAN CBC, MG, BMP ####[address] MCV (RBC) [Entitic vol] 92.2 fL Normal 83.5-101 [facility] Comment on above: Performed By: #### E SR, SCAN CBC, MG, BMP ####[address] Mean Corpuscular HGB Conc 33.4 g/dL Normal 32.5-35.6 [facility] Comment on above: Performed By: #### E SR, SCAN CBC, MG, BMP ####[address] Monocytes (Bld) [#/Vol] 1.6 10*3/uL High 0.0-0.8 [facility] Comment on above: Performed By: #### E SR, SCAN CBC, MG, BMP ####[address] Monocytes/100 WBC (Bld) 22.19 % High 0.00-20.00 [facility] Comment on above: Result Comment: For adults in ED, MDW > 20.0 may be associated with a higher risk of sepsis during the first 12 hrs of hospital admission Performed By: #### E SR, SCAN CBC, MG, BMP ####[address] Monocytes/100 WBC (Bld) 17.7 % Normal . [facility] Comment on above: Performed By: #### E SR, SCAN CBC, MG, BMP ####[address] Neutrophils (Bld) [#/Vol] 6.3 10*3/uL Normal 1.8-7.7 [facility] Comment on above: Performed By: #### E SR, SCAN CBC, MG, BMP ####[address] Neutrophils/100 WBC (Bld) 71.5 % Normal . [facility] Comment on above: Performed By: #### E SR, SCAN CBC, MG, BMP ####[address] NRBC% 0.1 /100{WBC} Normal 0-0.5 [facility] Comment on above: Performed By: #### E SR, SCAN CBC, MG, BMP ####[address] Ovalocytes Slight Normal [facility] Comment on above: Performed By: #### E SR, SCAN CBC, MG, BMP ####[address] Platelet Estimate Normal Normal Normal [facility] Comment on above: Performed By: #### E SR, SCAN CBC, MG, BMP ####[address] Platelet mean volume (Bld) [Entitic vol] 8.5 fL Normal 6.6-10.1 [facility] Comment on above: Performed By: #### E SR, SCAN CBC, MG, BMP ####[address] Platelet Morphology Normal Normal Normal [facility] Comment on above: Performed By: #### E SR, SCAN CBC, MG, BMP ####[address] Platelets (Bld) [#/Vol] 223 10*3/uL Normal 150-450 [facility] Comment on above: Performed By: #### E SR, SCAN CBC, MG, BMP ####[address] Poikilocytosis Slight Normal [facility] Comment on above: Performed By: #### E SR, SCAN CBC, MG, BMP ####[address] RBC (Bld) [#/Vol] 3.62 10*6/uL Low 3.90-5.60 [facility] Comment on above: Performed By: #### E SR, SCAN CBC, MG, BMP ####[address] WBC (Bld) [#/Vol] 8.8 10*3/uL Normal 4.1-10.5 [facility] Comment on above: Performed By: #### E SR, SCAN CBC, MG, BMP ####[address] Superficial Wound Cultureon 04-09-2023 Superficial Wound Culture Normal [facility] Comment on above: Performed By: #### C USUP ####[address] XR foot LT min 3V*on 024 XR foot LT min 3V* Normal [facility] Outside Progress Noteon 03-15 Outside Progress Note [phone] [id number] Normal [facility] Follow-Upon 03-15-2023 Follow-Up [id number] Brie,Will marshall 1955 M Date Provider Department Center 03/15/2023 503NeymarDEIDRE SANDERSON DEANGELOMicha [place] [facility] No family history on file Level of Service:91455 [place] POSTOP FOLLOW UP VISIT RELATED TO ORIGINAL PX Reason for Visit and Comments: Follow-up [948532] - Check maturation Rbrac-ceph AVF created on 01/18/[address] [facility] Follow-Upon 02-06-2023 Follow-Up [id number] Brie,Will marshall 1955 M Date Provider Department Center 02/06/2023 SheilaDEIDRE SANDERSON MIGUEL ANGELJAIMECLEMENTINASHARON ND [facility] No family history on file Level of Service:77538 [place] POSTOP FOLLOW UP VISIT RELATED TO ORIGINAL PX Reason for Visit and Comments: Post-op [483] - S/P RUE AV Fistula creation on 01/18/[address] [facility] 29on 01-21-2023 29 Addendum created 01/03 1344 by Maranda Chavez MD Clinical Note Signed [facility] APTTon 01-18-2023 ACTIVATED PARTIAL THROMBOPLASTIN TIME IN PPP BY COAGULATION ASSAY 29.4 Seconds Normal 25.0-35.0 [facility] Comment on above: Result Comment: Clin ical significance of the APTT is questionable in the presence of heparin. Performed By: #### L AB325 #### [facility] ([facility]) [address] [place] [address] Anesthesiaon 01-18-2023 Anesthesia [id number] Brie,Will marshall 1955 M Date Provider Department Center 01/18/2023 JOSÉ LYNN [facility] Medical C No family history on file [facility] BASIC METABOLIC PANELon Anion gap [Moles/Vol] 16 mmol/L Normal 7-20 [facility] Comment on above: Performed By: #### L AB15 ####[facility] ([facility])[address] [place] [address] Calcium [Mass/Vol] 9.6 mg/dL Normal 8.6-10.3 [facility] Comment on above: Performed By: #### L AB15 ####[facility] ([facility])[address] [place] [address] Chloride [Moles/Vol] 100 mmol/L Normal 98-107 [facility] Comment on above: Performed By: #### L AB15 ####[facility] ([facility])[address] [place] [address] CO2 [Moles/Vol] 23 mmol/L Normal 21-31 [facility] Comment on above: Performed By: #### L AB15 ####[facility] ([facility])[address] [place] [address] Creatinine [Mass/Vol] 7.03 mg/dL High 0.70-1.30 [facility] Comment on above: Performed By: #### L AB15 ####[facility] ([facility])[address] [place] [address] GLOMERULAR FILTRATION RATE ML/MIN/1.73 SQ M.PREDICTED 7.9 mL/min/1.73m*2 Low >60.0 [facility] [facility] Comment on above: Result Comment: [facility]???s estimated glomerular filtration rate (eGFR) [...] of individuals. Performed By: #### L [id number] ####[facility] ([facility])[address] [place] [address] Glucose [Mass/Vol] 96 mg/dL Normal 70-100 [facility] Comment on above: Performed By: #### L [id number] ####[facility] ([facility])[address] [place] [address] Potassium [Moles/Vol] 3.4 mmol/L Low 3.5-5.1 [facility] Comment on above: Performed By: #### L [id number] ####[facility] ([facility])[address] [facility] [place] [address] Sodium [Moles/Vol] 136 mmol/L Normal 136-145 [facility] Comment on above: Performed By: #### L [id number] ####[facility] ([facility])[address] [place] [address] Urea nitrogen [Mass/Vol] 19 mg/dL Normal 7-25 [facility] Comment on above: Performed By: #### L [id number] ####[facility] ([facility])[address] [place] [address] UREA NITROGEN/CREATININE (MASS RATIO) IN SER/PLAS 2.7 Normal [facility] Comment on above: Performed By: #### L [id number] ####[facility] ([facility])[address] [place] [address] CBCon 01-18-2023 Erythrocyte distribution width (RBC) [Ratio] 14.2 % Normal 11.5-15.0 [facility] Comment on above: Performed By: #### L [id number] #### [facility] ([facility]) [address] [place] [address] ERYTHROCYTE MEAN CORPUSCULAR HEMOGLOBIN CONCENTRATION (G/DL) BY AUTOMATED 33.2 g/dL Normal 32.0-35.0 [facility] Comment on above: Performed By: #### L [id number] #### [facility] ([facility]) [address] [place] [address] Hematocrit (Bld) [Volume fraction] 35.8 % Low 39.0-55.0 [facility] Comment on above: Performed By: #### L [id number] #### [facility] ([facility]) [address] [place] [address] Hemoglobin (Bld) [Mass/Vol] 11.9 g/dL Low 13.0-17.0 [facility] Comment on above: Performed By: #### L [id number] #### [facility] ([facility]) [address] [place] [address] MCH (RBC) [Entitic mass] 31.2 pg Normal 27.0-33.0 [facility] Comment on above: Performed By: #### L [id number] #### [facility] ([facility]) [address] [place] [address] MCV (RBC) [Entitic vol] 93.7 fL Normal 82.0-98.0 [facility] Comment on above: Performed By: #### L [id number] #### [facility] ([facility]) [address] [place] [address] PLATELETS (10*3/UL) IN BLOOD AUTOMATED COUNT 189 10*3/uL Normal 150-400 [facility] Comment on above: Performed By: #### L [id number] #### [facility] ([facility]) [address] [place] [address] RBC (Bld) [#/Vol] 3.82 10*6/uL Low 4.20-5.70 [facility] Comment on above: Performed By: #### L [id number] #### [facility] ([facility]) [address] [place] [address] WBC (Bld) [#/Vol] 6.40 10*3/uL Normal 4.00-10.60 [facility] Comment on above: Performed By: #### L [id number] #### [facility] ([facility]) [address] [place] [address] Labon 01-18-2023 Lab [id number] SpinkSyed 1955 M Date Provider Department [place] 01/18/2023 2245-[facility] LAB RESOURCE [facility] ND Medical C No family history on file Normal [facility] MRSA/MSSA DNA NASALon 2022 MRSA DNA Negative Normal Negative [facility] Comment on above: Order Comment: [...] preclude nasal colonization. Performed By: #### L [id number] ####[facility] ([facility])[address] [place] [address] MSSA DNA Negative Normal Negative [facility] Comment on above: Order Comment: [...] preclude nasal colonization. Performed By: #### L [id number] ####[facility] ([facility])[address] [place] [address] NURSNOTEon 01-18-2023 NURSNOTE Prescription filled and sent home with patient. Cont with + thrill and bruit. Stable for DC home. [facility] NURSNOTE DC instructions revi ewed with patient and mother, copy given. [facility] OPNOTEon 01-18-2023 OPNOTE ------ -- Attestation signed by Greg Alarcon MD at 01/18/2023 2:03 PM I was present for the entire procedure. -- DATE OF PROCEDURE: 01/18/23 PATIENT NAME: Seth Murphy SURGEON: * Greg Alarcon - Primary ASSISTANTS: Ana Snyder MD STAFF: Veneer Patcher: Clifford Cheek RN Scrub Person: VELVET Schumacher Veneer Patcher: NINOSKA CLAYTON Scrub: Ron Gama CST PRE-OP DIAGNOSIS: ESRD POST-OP DIAGNOSIS: same PROCEDURE: Procedure(s): Right Radial Cephalic Fistula Creation - CPT Codes 64126,89939,62792,58299 (Right) ANESTHESIA: General EBL: 5 mL FLUIDS: [...] present for the entire procedure. Normal [facility] Orders Onlyon 01-18-2023 Orders Only [id number] Syed Murphy 1955 [facility] Provider Department [place] 01/18/2023 ALAN HOWELL [facility] No family history on file Normal [facility] POCT GLUCOSE METER UNSOLICIT ED RESULTSon 01-18-2023 Glucose [Mass/Vol] 116 mg/dL High 70-105 [facility] Comment on above: Order Comment: Waive d Testing in the ED is performed under the ED CLIA certificate #[id number]. Result Comment: rtat e Performed By: #### L [id number] #### [facility] ([facility]) [address] [place] [address] POCT PERFUSION PANEL UNSOLIC ITED RESULTSon 01-18-2023 CO2 [Moles/Vol] 28.0 mmol/L Normal 21.0-29.0 [facility] Comment on above: Performed By: #### L [id number] ####[facility] ([facility])[address] [place] [address] Glucose [Mass/Vol] 116 mg/dL High 70-105 [facility] Comment on above: Performed By: #### L [id number] ####[facility] ([facility])[address] [place] [address] HCO3 (Bld) [Moles/Vol] 26.8 mmol/L Normal 23.0-28.0 [facility] Comment on above: Performed By: #### L [id number] ####[facility] ([facility])[address] [place] [address] Hematocrit (Bld) [Volume fraction] 36 % Low 38-51 [facility] Comment on above: Performed By: #### L [id number] ####[facility] ([facility])[address] [place] [address] Hemoglobin (Bld) [Mass/Vol] 12.2 g/dL Normal 12.0-17.0 [facility] Comment on above: Performed By: #### L [id number] ####[facility] ([facility])[address] [place] [address] POCT BASE EXCESS 2.0 mmol/L Normal -2.0-3.0 [facility] Comment on above: Performed By: #### L [id number] ####[facility] ([facility])[address] [place] [address] POCT IONIZED CALCIUM 1.24 mmol/L Normal 1.12-1.32 [facility] Comment on above: Performed By: #### L [id number] ####[facility] ([facility])[address] [place] [address] POCT PCO2 43.4 mmHg Normal 41.0-51.0 [facility] Comment on above: Performed By: #### L [id number] ####[facility] ([facility])[address] [address] POCT PH 7.40 Normal 7.31-7.41 [facility] Comment on above: Performed By: #### L [id number] ####[facility] ([facility])[address] [address] POCT PO2 43 mmHg Low 80-105 [facility] Comment on above: Performed By: #### L [id number] ####[facility] ([facility])[address] [address] POCT SO2 78 % Low 95-98 [facility] Comment on above: Performed By: #### L [id number] ####[facility] ([facility])[address] [address] Potassium [Moles/Vol] 3.5 mmol/L Normal 3.5-4.9 [facility] Comment on above: Performed By: #### L [id number] ####[facility] ([facility])[address] [address] Sodium [Moles/Vol] 135 mmol/L Low 138.0-146 . 0 [facility] Comment on above: Performed By: #### L [id number] ####[facility] ([facility])[address] [address] PROTIME-INRon 01-18-2023 INR IN PPP BY COAGULATION ASSAY 1.00 Normal 0.90-1.10 [facility] Comment on above: Result Comment: [...] 1995;108:231S-246S. Performed By: #### L [id number] #### [facility] ([facility]) [address] [place] [address] PROTHROMBIN TIME (PT) IN PPP BY COAGULATION ASSAY 13.2 Seconds Normal 12.3-14.8 [facility] Comment on above: Performed By: #### L [id number] #### [facility] ([facility]) [address] [place] [address] Orders Onlyon 01-16-2023 Orders Only [id number] Syed Muprhy marshall 1955 M Date Provider Department Center 01/16/2023 BEBE VICKERS HVCVASENDO ND HeartVAS No family history on file Normal [facility] ANESon 01-15-2023 ANES Physical Exam Airway Mallampati: III TM distance: >3 FB Neck ROM: full Cardiovascular Rhythm: regular Rate: normal Dental Pulmonary Plan ASA 3 Moderate Normal [facility] HPon 01-15-2023 HP History Of [...] ESRD (end stage renal disease) on dialysis ([facility]) [N18.6, Z99.2 (ICD-10-CM)] Right: Patent radial inflow artery with volume flow of 214 ml/min. Patent radial artery with biphasic waveforms. Average volume flow within radial to cephalic arteriovenous fistula is 410 ml/min. Patent outflow proximal cephalic vein with no evidence of stenosis or narrowing. Patent subclavian spectral Doppler waveforms. Notes: Indication: ESRD (end stage renal disease) on dialysis ([facility]) [N18.6, Z99.2 (ICD-10-CM)] Right: Patent [...] Phan MD PGY-4 Vascular Surgery Resident 01/15/[address] [facility] NURSNOTJean Marie 01-15-2023 NURSNOTE RN educated pt on d/ c instructions. RN encouraged pt to voice any questions or concerns. Pt verbalizes no questions or concerns at this time. Pt was wheeled off of unit with all of belongings. [facility] Orders Onlyon 01-10-2023 Orders Only [id number] Cole marshall 1955 [facility] Provider Department [place] 01/10/2023 Nyasia-BEBE CAMPOS HVCVASENDO ND Heart[facility]AS No family history on file [facility] Follow-Upon 01-09-2023 Follow-Up [id number] TalbotWill marshall 1955 [facility] Provider Department [place] 01/09/2023 Chirag-DEIDRE SANDERSON HVCVASENDO ND Heart[facility]AS No family history on file Level of Service:61493 [place] OFFICE/OUTPATIENT ESTABLISHED LOW MDM 20-29 MIN Reason for Visit and Comments: Follow-up [543044] - radiocephalic AV fistula creation 10/04/[address] [facility] Follow-Upon 10-16-2022 Follow-Up [id number] BrieWill marshall 1955 [facility] Provider Department [place] 10/16/2022 116-ROSANNE GAMEZ HVCVASENDO ND HeartVAS No family history on file Level of Service:51348 [place] OFFICE/OUTPT VISIT,PROCEDURE ONLY Reason for Visit and Comments: Follow-up [807956] - 2 week post op R AVF creation [facility] HPon 10-02-2022 [facility] Vascular Surgery HISTORY & PHYSICAL Reason [...] kidney disease Coronary artery disease Diabetes mellitus ([facility]) Heart disease Hyperlipidemia Hypertension Hypothyroidism Myocardial infarction ([facility]) Peripheral vascular disease ([facility]) Past Surgical History: Procedure Laterality [...] No results found for: INR, PROTIME Assessment: Seth Murphy is a 66 y.o.male with PMH significant for ESRD, diabetes, anemia, HTN, HLD, hypothyroidism, SD, and peripheral vascular disease who presents today for right AV fistula creation. Plan: Will proceed with right AV fistula creation today with Dr. Alarcon Risks, benefits, and alternatives were discussed with patient and he is agreeable Jessee Mitchell MD General Surgery Resident, PGY-1 Vascular Surgery Service 10/02/[address] [facility] OPNOTEon 10-02-2022 OPNOTE ------ -- Attestation signed [...] MD General Surgery PGY4 10/03/2022 Normal [facility] POCT PERFUSION PANEL UNSOLIC ITED RESULTSon 10-02-2022 CO2 [Moles/Vol] 26.0 mmol/L Normal 21.0-29.0 [facility] Comment on above: Performed By: #### L [id number] #### [facility] ([facility]) [address] [place] [address] Glucose [Mass/Vol] 154 mg/dL High 70-105 [facility] Comment on above: Performed By: #### L [id number] #### [facility] ([facility]) [address] [place] [address] HCO3 (Bld) [Moles/Vol] 24.5 mmol/L Normal 23.0-28.[address] [facility] Comment on above: Performed By: #### L [id number] #### [facility] ([facility]) [address] [place] [address] Hematocrit (Bld) [Volume fraction] 43 % Normal 38-51 [facility] Comment on above: Performed By: #### L [id number] #### [facility] ([facility]) [address] [place] [address] Hemoglobin (Bld) [Mass/Vol] 14.6 g/dL Normal 12.0-17.0 [facility] Comment on above: Performed By: #### L [id number] #### [facility] ([facility]) [address] [place] [address] POCT BASE EXCESS -1.0 mmol/L Normal -2.0-3.0 [facility] Comment on above: Performed By: #### L [id number] #### [facility] ([facility]) [address] [place] [address] POCT IONIZED CALCIUM 1.26 mmol/L Normal 1.12-1.32 [facility] Comment on above: Performed By: #### L [id number] #### [facility] ([facility]) [address] [place] [address] POCT PCO2 41.3 mmHg Normal 41.0-51.0 [facility] Comment on above: Performed By: #### L [id number] #### [facility] ([facility]) [address] [place] [address] POCT PH 7.38 Normal 7.31-7.41 [facility] Comment on above: Performed By: #### L [id number] #### [facility] ([facility]) [address] [place] [address] POCT PO2 45 mmHg Low 80-105 [facility] Comment on above: Performed By: #### L [id number] #### [facility] ([facility]) [address] [place] [address] POCT SO2 79 % Low 95-98 [facility] Comment on above: Performed By: #### L [id number] #### [facility] ([facility]) [address] [place] [address] Potassium [Moles/Vol] 4.2 mmol/L Normal 3.5-4.9 [facility] Comment on above: Performed By: #### L [id number] #### [facility] ([facility]) [address] [place] [address] Sodium [Moles/Vol] 137 mmol/L Low 138.0-146 . 0 [facility] Comment on above: Performed By: #### L [id number] #### [facility] ([facility]) [address] [place] [address] US Arterial and Venous Mappi on 08-17-2022 [...] : 0.37 Depth (cm) : 0.22 Right Credentialing Assistant Vn Diameter (cm) : 0.48 Right Lateral [...] (cm) : Non vis prev fistula Left Credentialing Assistant Vn Diameter (cm) : 0.21 Left Medial [...] Lower Arm Diameter (cm) : 0.14 Normal [facility] Consent for Treatmenton 07-0 Consent for Treatment [id number]#1.00CD:127 Normal [facility] Coding Queryon 08-10-2022 Coding Query - From: [...] depth mentioned in the op report Normal [facility] Outside Recordson 08-02-2022 Outside Records [id number]#1.00CD:127 Normal [facility] Consent for Treatmenton 07-12 Consent for Treatment [id number]#1.00CD:127 Normal [facility] Heart and Vascular Office/Cl inic Noteon [...] with contrast (08/04/2020), Removal of catheter (07/07/2020), 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), AV - Creation of arteriovenous fistula [...] Mother. Primary malign (more content not included)... [facility] Comment on above: Result Comment: Elec tronically Signed By: Dorian FISH, Greg Lopez\.br\Date and Time Signed: 07/30/22 09:29 EDT Outside Recordson 07-30-2022 Outside Records [id number]#1.00CD:127 [facility] Physician Orderon 07-30-2022 Physician Order [id number]#1.00CD:127 [facility] Progress Note-Physicianon Progress Note-Physician Assessment/Plan 1. Sepsis [...] artery disease (I25.10: Atherosclerotic heart disease of [place] coronary artery without angina pectoris) -Aspirin, atorvastatin, [...] stage renal disease) On HD M/W/F at [facility] -Consult nephro - pending -BP is soft [...] deep vein thrombosis (DVT) prophylaxis (Z79.899: Other terminal carman (current) drug therapy) -Heparin sq with early ambulation -Plan discussed w/ patient, nursing staff and CRM. This report was transcribed using voice recognition software. Every effort was made to ensure accuracy, however, inadvertently computerized litigation manager mistakes may be present. Subjective Pt seen [...] Lymph Auto: 11.3 % Low (07/15/22 06:07:00) [place] Auto: 16.4 % High (07/15/22 06:07:00) (more content not included)... Normal [facility] Comment on above: Result Comment: Elec tronically Signed By: Vijaya SANDOVAL\.br\Date and Time Signed: 07/15/22 12:01 EDT\.br\Electronically Co-Signed By: Vijaya SANDOVAL\.br\Date and Time Co-Signed: 07/15/22 12:02 EDT\.br\Electronically Co-Signed By: Michael FISH, Fuentes Lemons\.br\Date and Time Co-Signed: 07/23/22 07:37 EDT Discharge Instructionson Discharge Instructions [id number]#1.00CD:127 Normal [facility] Monitor Recordon 07-20-2022 Monitor Record [id number]#1.00CD:127 Normal [facility] Transfer Documentson 023 Transfer Documents [id number]#1.00CD:127 Normal [facility] BMPon 07-19-2022 Creatinine [Mass/Vol] 7.7 mg/dL Abnormal 0.5-1.3 [facility] Comment on above: Result Comment: Crit ical Result verified by previous result\Critical Result S_CREA:7.70 Called to JAVI WIN AT 3S by CATYH LERNER And Read Back For Confirmation at: 07/19/2022 08:27:40\Result S_CREA:7.70 Called to JAVI WIN AT 3S by CATHY LERNER And Read Back For Confirmation at: 07/19/2022 08:27:40 Performed By: #### 1 [id number], 8386331, 3648024, [id number] #### [facility] [address] [place] [address] Anion gap [Moles/Vol] 9 mmol/L Normal 6-16 [facility] Comment on above: Performed By: #### 1 [id number], 7843701, 8428726, 4008085 #### [facility] [address] [place] [address] Calcium [Mass/Vol] 8.0 mg/dL Low 8.9-11.1 [facility] Comment on above: Performed By: #### 1 [id number], 7057738, 9017196, 0850182 #### [facility] [address] [place] [address] Chloride [Moles/Vol] 104 mmol/L Normal 101-111 [facility] Comment on above: Performed By: #### 1 [id number], 2389522, 1742209, 2032321 #### [facility] [address] [place] [address] CO2 [Moles/Vol] 27 mmol/L Normal 21-31 [facility] Comment on above: Performed By: #### 1 [id number], 3227549, 5039471, 4256118 #### [facility] [address] [place] [address] Glucose [Mass/Vol] 180 mg/dL Normal 55-199 [facility] Comment on above: Result Comment: If t his glucose result represents a fasting glucose, interpretation should refer to the following reference range: 55-99 mg/dL Performed By: #### 1 [id number], 9407133, 0879944, 0328022 #### [facility] [address] [place] [address] Potassium [Moles/Vol] 3.7 mmol/L Normal 3.5-5.3 [facility] Comment on above: Performed By: #### 1 [id number], 4520950, 0337319, 1651392 #### [facility] [address] [place] [address] Sodium [Moles/Vol] 136 mmol/L Normal 135-145 [facility] Comment on above: Performed By: #### 1 [id number], 5054025, 9403936, 8309907 #### [facility] [address] [place] [address] Urea nitrogen [Mass/Vol] 18 mg/dL Normal 5-21 [facility] Comment on above: Performed By: #### 1 [id number], 4495263, 4244126, 5806594 #### [facility] [address] [place] [address] Urea nitrogen/Creatinine [Mass ratio] 2 No Units Low 10-20 [facility] Comment on above: Performed By: #### 1 4236892, 5033729, 7464466, 6860859 #### [facility] [address] [place] [address] CBC w/Indiceson 07-19-2022 Erythrocyte distribution width (RBC) [Ratio] 17.6 % High 10.9-14.2 [facility] Comment on above: Performed By: #### 1 [id number], 6061049, 1129397, 5760810 #### [facility] [address] [place] [address] Hematocrit (Bld) [Volume fraction] 25.0 % Low 37.7-49.0 [facility] Comment on above: Performed By: #### 1 0369430, 0823304, 1440023, 0470383 #### [facility] [address] [place] [address] Hemoglobin (Bld) [Mass/Vol] 8.3 g/dL Low 13.5-17.5 [facility] Comment on above: Performed By: #### 1 0211359, 6748061, 3009062, 5586173 #### [facility] [address] [place] [address] MCH (RBC) [Entitic mass] 30.0 pg Normal 27.0-34.0 [facility] Comment on above: Performed By: #### 1 9289775, 8798668, 0426694, 4858257 #### [facility] [address] [place] [address] MCHC (RBC) [Mass/Vol] 33.4 g/dL Normal 31.4-36.0 [facility] Comment on above: Performed By: #### 1 6821735, 1529941, 2069312, 9273788 #### [facility] [address] [place] [address] MCV (RBC) [Entitic vol] 90.1 fL Normal 80.0-100.0 [facility] Comment on above: Performed By: #### 1 8869665, 4350437, 9401255, 5403362 #### [facility] [address] [place] [address] Platelet mean volume (Bld) [Entitic vol] 8.0 fL Normal 6.4-10.8 [facility] Comment on above: Performed By: #### 1 8496118, 9923366, 3435577, 7400431 #### [facility] [address] [place] [address] Platelets (Bld) [#/Vol] 204.0 E9/L Normal 150.0-500. 0 [facility] Comment on above: Performed By: #### 1 5585981, 9888058, 5919126, 4536628 #### [facility] [address] [place] [address] RBC (Bld) [#/Vol] 2.8 E12/L Low 4.3-5.9 [facility] Comment on above: Performed By: #### 1 0895641, 1770278, 7483201, 9187825 #### [facility] [address] [place] [address] WBC corrected for nucl RBC Auto (Bld) [#/Vol] 6.1 E9/L Normal 4.0-11.0 [facility] Comment on above: Performed By: #### 1 7873937, 1720117, 5914016, 6852471 #### [facility] [address] [place] [address] Capillary Glucose POCon 06-0 Glucose [Mass/Vol] 198 mg/dL High 55-99 [facility] Comment on above: Result Comment: Run Lab Confirmation No Coverage Given Insulin Started Performed By: #### 1 8721488, 7161964, 5358854, 4073662 #### [facility] [address] [place] [address] Glucose [Mass/Vol] 187 mg/dL High 55-99 [facility] Comment on above: Result Comment: Ambrocio vargas RN/ Performed By: #### 1 9650839, 4979088, 1199284, 3581404 #### [facility] [address] [place] [address] Glucose [Mass/Vol] 110 mg/dL High 55-99 [facility] Comment on above: Result Comment: Ambrocio vargas RN/ Performed By: #### 2 [id number] ####[facility] [id number] [place] [address] Glucose [Mass/Vol] 162 mg/dL High 55-99 [facility] Comment on above: Result Comment: Ambrocio vargas RN/ Performed By: #### 2 [id number] ####[facility] [address] [place] [address] Inpatient Clinical Summaryon 07-19-2022 Inpatient Clinical Summary [address] [address] Clinical Summary Person Information: Name: SETH MURPHY Age: 66 Years : 1955 Sex: Male PCP: Nav Alejo MD Marital Status: Race: White Ethnicity: Non- or Language: [place]er Visit Id: Visit Reason: INFECTION Speciality: Acuity: Enc Type: Inpatient Med Service: Medical Arrival: 07/12/2022 14:01:25 Discharge: Dispo Type: Address: [address] [place] [address] [id number] Provider Notes: Diagnosis: 1:Sepsis; 2:Cellulitis of arm; [...] 100 Units Intravenous every 24 hours. Follow [facility] PICC line flushing policy. Refills: 0. insulin [...] Physician: Follow up: With: Address: When: Greg Alarcon [address] [id number] [facility] (1) Within 7 to 10 days With: Address: When: Alfredo Acosta [address] [place] [address] Business (1) Within 1 to 2 weeks With: Address: When: [facility] [phone] Within 5 to 7 days With: Address: When: Nav Alejo [address] [facility], [place] [address] Business (1) Patient Education Information: Cellulitis, Adult, Lyux-gc-Hfzz; Antibiotic Medicine, Adult, Vxpx-oe-Axqo [facility] To Dose Normal [facility] Inpatient Patient Summaryon 07-19-2022 Inpatient Patient Summary [...] with contrast (08/04/2020), Removal of catheter (07/07/2020), 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), AV - Creation of arteriovenous fistula [...] Pending Diagnostic Test Results None Pharmacy Information [facility] Discharge Instructions Follow up appts as writtenLeft [...] 7 to 10 days Where: [address] [place] [address]- Business (1) Follow Up with Alfredo Acosta When: Within 1 to 2 weeks Where: [address] [place] [address]- Business (1) Follow Up with [facility]: Denis [phone] When: Within 5 to 7 days Follow Up with Nav Alejo When: In 0 days Where: [address] [place] [address]- Business (1) Medications What How Much When [...] By M (more content not included)... Normal [facility] Inpatient Patient Summary [address] [id number] Patient Discharge Instructions PERSON INFORMATION Name: SETH [...] With: Address: When: Greg Alarcon [address] [place] [address] Business (1) Within 7 to 10 days With: Address: When: Alfredo Acosta [address] [place] [address] [place] [address] Business (1) Within 1 to 2 weeks With: Address: When: [facility] [phone] Within 5 to 7 days With: Address: When: Nav Alejo [address] [place] [address], [place] [address] Business (1) In the event [...] 100 Units Intravenous every 24 hours. Follow [facility] PICC line flushing policy. Refills: 0. Last [...] Mouth ever (more content not included)... Normal [facility] Monitor Recordon 07-19-2022 Monitor Record [id number]#1.00CD:127 Normal [facility] Monitor Record 170.. [id number]#1.00CD:127 Normal [facility] Monitor Record 170.. [id number]#1.00CD:127 Normal [facility] Monitor Record [id number]#1.00CD:127 Normal [facility] Monitor Record [id number]#1.00CD:127 Normal [facility] Progress Note-Nurseon 2022 Progress Note-Nurse [id number]#1.00CD:127 Normal [facility] Progress Note-Nurse [id number]#1.00CD:127 Normal [facility] Progress Note-Physicianon Progress Note-Physician Patient: SETH MURPHY [...] q12hr, # 20 cap(s), Refills(s) 0, Pharmacy: [facility]/pharmacy #[id number], 178, cm, 07/09/22 17:32:00 EDT, Height/Length Dosing, [...] comment) hydrALAZ (more content not included)... Normal [facility] Comment on above: Result Comment: Elec tronically Signed By: Aaron FISH, Cristino\.br\Date and Time Signed: 07/19/22 09:34 EDT eGFRon 07-19-2022 GFR/1.73 sq M.predicted among non-blacks MDRD (S/P/Bld) [Vol rate/Area] 7 mL/min/1.73 m2 Low >=59 [facility] Comment on above: Order Comment: Order added by Discern Expert. Result Comment: Psychologist Research Assistant jm kidney disease could be indicated at eGFR's of less than 60 mL/min/1.73m2. Kidney failure is indicated at less than 15 mL/min/1.73m2. Performed By: #### 1 [id number], 4458531, 7250790, 9432415 #### [facility] [address] [place] [address] BMPon 07-18-2022 Creatinine [Mass/Vol] 9.7 mg/dL Abnormal 0.5-1.3 [facility] Comment on above: Result Comment: Crit ical Result verified by repeat analysis\Critical Result S_CREA:9.70 Called to MARC SRINIVASAN AT 3S by DK DAVIES And Read Back For Confirmation at: 07/18/2022 07:11:52\Result S_CREA:9.70 Called to MARC SRINIVASAN AT 3S by DK DAVIES And Read Back For Confirmation at: 07/18/2022 07:11:52 Performed By: #### 1 6657337, 9878263, 1661576, 1916018 #### [facility] [address] [place] [address] Anion gap [Moles/Vol] 15 mmol/L Normal 6-16 [facility] Comment on above: Performed By: #### 1 3672453, 7603537, 5326221, 6699455 #### [facility] [address] [address] Calcium [Mass/Vol] 8.1 mg/dL Low 8.9-11.1 [facility] Comment on above: Performed By: #### 1 9494368, 8267362, 9327739, 9511022 #### [facility] [address] [place] [address] Chloride [Moles/Vol] 104 mmol/L Normal 101-111 [facility] Comment on above: Performed By: #### 1 7957443, 3169983, 1559677, 8895601 #### [facility] [address] [place] [address] CO2 [Moles/Vol] 23 mmol/L Normal 21-31 [facility] Comment on above: Performed By: #### 1 4141139, 0060111, 6343573, 3995736 #### [facility] [address] [address] Glucose [Mass/Vol] 131 mg/dL Normal 55-199 [facility] Comment on above: Result Comment: If t his glucose result represents a fasting glucose, interpretation should refer to the following reference range: 55-99 mg/dL Performed By: #### 1 7113813, 0731271, 3102299, 9832636 #### [facility] [address] [place] [address] Potassium [Moles/Vol] 3.8 mmol/L Normal 3.5-5.3 [facility] Comment on above: Performed By: #### 1 0610096, 4880029, 0102252, 3846681 #### [facility] [address] [place] [address] Sodium [Moles/Vol] 138 mmol/L Normal 135-145 [facility] Comment on above: Performed By: #### 1 1771874, 7836717, 5897442, 1114276 #### [facility] [address] [place] [address] Urea nitrogen [Mass/Vol] 29 mg/dL High 5-21 [facility] Comment on above: Performed By: #### 1 1567228, 4940047, 9870073, 8764663 #### [facility] [address] [place] [address] Urea nitrogen/Creatinine [Mass ratio] 3 No Units Low 10-20 [facility] Comment on above: Performed By: #### 1 1722185, 0569651, 2297731, 2290442 #### [facility] [address] [place] [address] CBC w/Indiceson 07-18-2022 Erythrocyte distribution width (RBC) [Ratio] 17.2 % High 10.9-14.2 [facility] Comment on above: Performed By: #### 1 1358407, 2770883, 5468790, 6082063 #### [facility] [address] [place] [address] Hematocrit (Bld) [Volume fraction] 25.0 % Low 37.7-49.0 [facility] Comment on above: Performed By: #### 1 5469166, 1926081, 7166326, 6859051 #### [facility] [address] [place] [address] Hemoglobin (Bld) [Mass/Vol] 8.5 g/dL Low 13.5-17.5 [facility] Comment on above: Performed By: #### 1 0555916, 9198424, 9696518, 2494335 #### [facility] [address] [place] [address] MCH (RBC) [Entitic mass] 30.3 pg Normal 27.0-34.0 [facility] Comment on above: Performed By: #### 1 6585614, 0669202, 5145329, 0120069 #### [facility] [address] [place] [address] MCHC (RBC) [Mass/Vol] 33.9 g/dL Normal 31.4-36.0 [facility] Comment on above: Performed By: #### 1 9685952, 5698414, 1115150, 6105173 #### [facility] [address] [place], [place] [address] MCV (RBC) [Entitic vol] 89.4 fL Normal 80.0-100.0 [facility] Comment on above: Performed By: #### 1 6191196, 0632501, 5745762, 7902935 #### [facility] [address] [place] [address] Platelet mean volume (Bld) [Entitic vol] 7.2 fL Normal 6.4-10.8 [facility] Comment on above: Performed By: #### 1 5431323, 0193218, 6475193, 1169838 #### [facility] [address] [place] [address] Platelets (Bld) [#/Vol] 187.0 E9/L Normal 150.0-500. 0 [facility] Comment on above: Performed By: #### 1 7992747, 8856347, 7808191, 8641367 #### [facility] [address] [place] [address] RBC (Bld) [#/Vol] 2.8 E12/L Low 4.3-5.9 [facility] Comment on above: Performed By: #### 1 3371678, 7540704, 7780277, 8182244 #### [facility] [address] [place] [address] WBC corrected for nucl RBC Auto (Bld) [#/Vol] 5.6 E9/L Normal 4.0-11.0 [facility] Comment on above: Performed By: #### 1 7938926, 7805063, 3087307, 8219026 #### [facility] [address] [place] [address] Capillary Glucose POCon 06 Glucose [Mass/Vol] 288 mg/dL High 55-99 [facility] Comment on above: Result Comment: Ambrocio vargas RN/ Performed By: #### 1 2368581, 0511342, 4795707, 8861168 #### [facility] [address] [place] [address] Glucose [Mass/Vol] 267 mg/dL High 55-99 [facility] Comment on above: Result Comment: Ambrocio ELIAS Performed By: #### 2 66356718 ####[facility] [address] [place] [address] Glucose [Mass/Vol] 122 mg/dL High - [facility] Comment on above: Result Comment: Ambrocio ELIAS Performed By: #### 2 26395354 ####[facility] [address] [place] [address] Glucose [Mass/Vol] 129 mg/dL High 55-99 [facility] Comment on above: Result Comment: Ambrocio ELIAS Performed By: #### 2 34388402 #### [facility] [address] [place] [address] Interdisciplinary Note - Paresh e Manageron 07-18-2022 Interdisciplinary Note - Process Developer Pt is awake and alert in bed, previously rounded with kyler PRODUCT OWNER. Pt is receiving hemodialysis at this time, Plan to stay in hospital today, await cultures and will likely DC to [facility] tomorrow. Medicare rights reviewed, . PCP verified and insurance information reviewed and DME discussed. contact information provided and white board updated. Normal [facility] Comment on above: Result Comment: Elec tronically Signed By: Obie TORREZ, Alaina\.asael\Date and Time Signed: 07/18/22 11:15 EDT IntraOperative Documentson 0 07-18-2022 IntraOperative Documents [id number]#1.00CD:127 [facility] Message from Medicareon Message from Medicare [id number]#1.00CD:127 [facility] Message from Medicare [id number]#1.00CD:127 [facility] Monitor Recordon 07-18-2022 Monitor Record [id number]#1.00CD:127 [facility] Monitor Record [id number]#1.00CD:127 [facility] Monitor Record [id number]#1.00CD:127 [facility] Monitor Record [id number]#1.00CD:127 [facility] Progress Note - Pharmacyon 0 07-18-2022 Progress [...] mg/dL High (07/18/22 07:36:00) POC Device SN: [id number] (07/18/22 07:36:00) POC User ID: [id number] (07/18/22 07:36:00) POC Username: ROGER VALERIO (07/18/22 07:36:00) [facility] Progress Note-Physicianon Progress Note-Physician Assessment/Plan 1. 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 This report was transcribed using voice recognition software. Every effort was made to ensure accuracy, however, inadvertently computerized litigation manager mistakes may be present. Subjective Patient seen [...] of [place] (more content not included)... Normal [facility] Comment on above: Result Comment: Elec tronically Signed By: Vijaya SANDOVAL\.br\Date and Time Signed: 07/18/22 13:34 EDT\.br\Electronically Co-Signed By: Pedro ARAUZ MD\.br\Date and Time Co-Signed: 07/18/22 16:54 EDT Progress Note-Physician Patient: SETH MURPHY Age: 66 years Sex: Male : 1955 Associated Diagnoses: None Author: Brian SHIN, Sarah Ugalde Interval History 66-year-old gentleman with end-stage kidney disease on hemodialysis Saturday at [facility] (follows with Dr. Nunez, Last dialyzed on [...] 07/13/22 9:00:00 EDT, 07/12/22 16:22:00 EDT epoetin tohmas-epbx 10,000 units/mL Inj: 20,000 unit(s) = 2 [...] q12hr, # 20 cap(s), Refills(s) 0, Pharmacy: [facility]/pharmacy #[id number], 178, cm, 07/09/22 17:32:00 EDT, Height/Length [...] 0, Thyro (more content not included)... Normal [facility] Comment on above: Result Comment: Elec tronically Signed By: Sarah Torres NP\.br\Date and Time Signed: 07/17/22 18:08 EDT\.br\Electronically Co-Signed By: Vane Miller MD\.br\Date and Time Co-Signed: 07/18/22 13:58 EDT Progress Note-Physician Patient: SETH MURPHY Age: 66 years Sex: Male : 1955 Associated Diagnoses: None Author: Vane Miller MD Interval History 66-year-old gentleman with end-stage kidney disease on hemodialysis Saturday at [facility] (follows with Dr. Nunez, Last dialyzed on [...] q12hr, # 20 cap(s), Refills(s) 0, Pharmacy: [facility]/pharmacy #[id number], 178, cm, 07/09/22 17:32:00 EDT, Height/Length Dosing, 92, kg, 07/09/22 17:32:00 EDT, Weight Dosing Documented Medications Documented Aranesp 25 mcg/0.42 mL Injection: Refills(s) 0 Celebrate Multivitamin: See Instructions, Refill(s) 0 Humalog Kwi (more content not included)... Normal [facility] Comment on above: Result Comment: Elec [...] artery disease (I25.10: Atherosclerotic heart disease of [place] coronary artery without angina pectoris) -Aspirin, atorvastatin, [...] stage renal disease) On HD M/W/F at [facility] -Consult nephro -appreciated -- typically takes [...] deep vein thrombosis (DVT) prophylaxis (Z79.899: Other fci (current) drug therapy) -Heparin sq with early ambulation -Plan discussed w/ patient, nursing staff and CRM. This report was transcribed using voice recognition software. Every effort was made to ensure accuracy, however, inadvertently computerized litigation manager mistakes may be present. Subjective Pt seen [...] Lvl: 4. (more content not included)... Normal [facility] Comment on above: Result Comment: Elec tronically Signed By: Vijaya SANDOVAL\.br\Date and Time Signed: 07/17/22 11:34 EDT\.br\Electronically Co-Signed By: Pedro ARAUZ MD\.br\Date and Time Co-Signed: 07/18/22 08:23 EDT Vanco Troughon 07-18-2022 VANCOMYCIN 19 microgram/mL Normal 10-20 [facility] Comment on above: Order Comment: Lakisha woodard draw one hour prior to next dose at on . Thank you. Performed By: #### 1 8462702, 4009661, 8648886, 2976524 #### [facility] [address] [place] [address] eGFRon 07-18-2022 GFR/1.73 sq M.predicted among non-blacks MDRD (S/P/Bld) [Vol rate/Area] 5 mL/min/1.73 m2 Low >=59 [facility] Comment on above: Order Comment: Order added by Discern Expert. Result Comment: Psychologist Research Assistant jm kidney disease could be indicated at eGFR's of less than 60 mL/min/1.73m2. Kidney failure is indicated at less than 15 mL/min/1.73m2. Performed By: #### 1 4111546, 5011992, 0232780, 3261501 #### [facility] [address] [place] [address] BMPon 07-17-2022 Creatinine [Mass/Vol] 8.0 mg/dL Abnormal 0.5-1.3 [facility] Comment on above: Result Comment: Crit ical Result verified by repeat analysis\Critical Result S_CREA:8.00 Called to SILVIO ARZOLA AT 3S by MARC ROSALES And Read Back For Confirmation at: 07/17/2022 09:09:10\Result S_CREA:8.00 Called to SILVIO ARZOLA AT 3S by MARC ROSALES And Read Back For Confirmation at: 07/17/2022 09:09:10 Performed By: #### 2 548095, 22293927 ####[facility] [address] [place] [address] Urea nitrogen [Mass/Vol] 23 mg/dL High 5-21 [facility] Comment on above: Performed By: #### 2 258565, 21906198 ####[facility] [address] [place] [address] Urea nitrogen/Creatinine [Mass ratio] 3 No Units Low 10-20 [facility] Comment on above: Performed By: #### 2 300523, 43560153 ####[facility] [address] [place] [address] Anion gap [Moles/Vol] 14 mmol/L Normal 6-16 [facility] Comment on above: Performed By: #### 2 473774, 18002470 ####[facility] [address] [place] [address] Calcium [Mass/Vol] 7.8 mg/dL Low 8.9-11.1 [facility] Comment on above: Performed By: #### 2 211543, 01966676 ####[facility] [address] [facility] [place] [address] Chloride [Moles/Vol] 100 mmol/L Low 101-111 [facility] Comment on above: Performed By: #### 2 206475, 16276543 ####[facility] [address] [facility] [place] [address] CO2 [Moles/Vol] 27 mmol/L Normal 21-31 [facility] Comment on above: Performed By: #### 2 750686, 75886562 ####[facility] [address] [facility] [place] [address] Glucose [Mass/Vol] 195 mg/dL Normal 55-199 [facility] Comment on above: Result Comment: If t his glucose result represents a fasting glucose, interpretation should refer to the following reference range: 55-99 mg/dL Performed By: #### 2 282817, 64153925 ####[facility] [address] [facility] [place] [address] Potassium [Moles/Vol] 4.1 mmol/L Normal 3.5-5.3 [facility] Comment on above: Performed By: #### 2 136225, 72918432 ####[facility] [address] [place] [address] Sodium [Moles/Vol] 137 mmol/L Normal 135-145 [facility] Comment on above: Performed By: #### 2 672432, 08904230 ####[facility] [address] [place] [address] Capillary Glucose POCon Glucose [Mass/Vol] 243 mg/dL High 55-99 [facility] Comment on above: Result Comment: Ambrocio vargas RN/ Performed By: #### 1 1339380, 1709068, 5075583, 4653825 #### [facility] [address] [place] [address] Glucose [Mass/Vol] 327 mg/dL High 55-99 [facility] Comment on above: Result Comment: Ambrocio vargas RN/ Performed By: #### 2 01512904 ####[facility] [address] [place] [address] Glucose [Mass/Vol] 290 mg/dL High -[address] [place] [address] Comment on above: Result Comment: Ambrocio vargas RN/ Performed By: #### 2 32537409 ####[facility] [address] [place] [address] Glucose [Mass/Vol] 188 mg/dL High 55-[address] [place] [address] Comment on above: Result Comment: Ambrocio vargas RN/ Performed By: #### 2 14023327 #### [facility] [address] [place] [address] Consent for Anesthesiaon Consent for Anesthesia [id number]#1.00CD:127 Normal [facility] H&P Updateon 07-17-2022 H&P Update [id number]#1.00CD:127 Normal [facility] IntraOperative Documentson 0 07-17-2022 IntraOperative Documents [id number]#1.00CD:127 Normal [facility] Main OR Intraoperative Recor don 07-17-2022 Main OR Intraoperative Record IntraOp Document Type FT Summary Primary Physician: Dorian FISH, Greg Lopez Finalized Date/Time: 07/17/22 11:22:21 Pt. Name: SETH MURPHY/Sex: 1955 Male Med Rec #: [id number] Physician: Fuentes Rodriguez MD Financial #: [id number] Pt. Type: I Room/Bed: [address] [place] [address] Admit/Disch: 07/12/22 14:01:25 - Institution: Case Times [...] Acosta RN, CNOR, Annie Aragon Role Performed HAULPAK DRIVER Surgeon - Primary SUPERVISOR RIVETING Time In 07/16/22 12:24:00 07/16/22 12:58:00 07/16/22 12:24:00 Time Out 07/16/22 13:30:00 07/16/22 13:11:00 07/16/22 13:30:00 Procedure AV FISTULA AV FISTULA AV FISTULA EXCISION(Left) EXCISION(Left) EXCISION(Left) Comments dr feliz supervising Last Modified By: Jesus TORREZ, Delilah Lee RN, Delilah Carvalho RN 07/16/22 13:30:02 07/16/22 13:30:02 07/16/22 13:30:02 Entry 4 Entry 5 Entry 6 Case Attendee Jesus TORREZ, Cari Mcintosh Ii, CST, Julie A Role Performed Veneer Patcher - Primary Veneer Patcher - Primary Scrub - Primary Time In [...] and tissue Entry 1 Skin Integrity Intact, [place], Warm, and Skin Abnormality No Dry Outcomes Met? Yes Last Modified By: Delilah Lee RN (more content not included)... Normal [facility] Monitor Recordon 07-17-2022 Monitor Record [id number]#1.00CD:127 Normal [facility] Monitor Record [id number]#1.00CD:127 Normal [facility] Operative Reporton Operative Report SURGERY DATE: 2022 [...] a day. Greg Alarcon M.D. Dictated: 07/16/2022 [id number] Transcribed: 07/16/2022 [facility] [...] ( From PACU to floor ). Normal [facility] Comment on above: Result Comment: Elec [...] segment elevation myocardial infarction / SNOMED CT 9032361767 / Confirmed Acute systolic heart failure / SNOMED CT 6643099036 / Confirmed At risk for falls / SNOMED CT 935565338 / Possible Problem added when Risk for Falls Careplan was initiated. Coronary arteriosclerosis / SNOMED CT 36129909 / Confirmed Coronary artery disease / SNOMED CT 87484919 / Confirmed MRSA (methicillin resistant staph aureus) culture positive / SNOMED CT 8611510967 / Confirmed MRSA in lt arm wound 07/12/2022 Diabetes mellitus / SNOMED CT 665541093 / Confirmed Diabetes / SNOMED CT 707380203 / Confirmed Dyspnea / SNOMED CT 913593623 / Confirmed Dysuria / SNOMED CT 56451070 / Confirmed Edema of lower extremity / SNOMED CT 007254869 / Confirmed Electrocardiogram abnormal / SNOMED CT 5845770710 / Confirmed ESRD (end stage renal disease) on dialysis / SNOMED CT 266562596 / Confirmed Essential hypertension / SNOMED CT 37607149 / Confirmed Fatigue / SNOMED CT 032825073 / Confirmed Hyperlipidemia / SNOMED CT 26171278 / Confirmed Hypertension / SNOMED CT 1293800334 / Confirmed Hypothyroid / SNOMED CT 15335870 / Confirmed Impaired skin integrity / SNOMED CT 04754537 / Confirmed Problem added on documentation of skin impairments. Left ventricular hypertrophy / SNOMED CT 63825177 / Confirmed Neuropathy due to diabetes mellitus / SNOMED CT 3956232928 / Confirmed Pseudophakia / SNOMED CT 650804505 / Confirmed Apnea, sleep / SNOMED CT 136239700 / Confirmed Thrombophlebitis / SNOMED CT 055716598 / Confirmed Venous insufficiency of leg / SNOMED CT 032213294 / Confirmed Venous stasis ulcer of leg / SNOMED CT 4676322893 / Confirmed Objective General: Alert and oriented. [...] this can be given at HD. Normal [facility] Comment on above: Result Comment: Elec tronically Signed By: Alfredo Acosta M.D.asael\Date and Time Signed: 07/17/22 14:03 EDT eGFRon 07-17-2022 GFR/1.73 sq M.predicted among non-blacks MDRD (S/P/Bld) [Vol rate/Area] 7 mL/min/1.73 m2 Low >=59 [facility] Comment on above: Order Comment: Order added by Discern Expert. Result Comment: Psychologist Research Assistant jm kidney disease could be indicated at eGFR's of less than 60 mL/min/1.73m2. Kidney failure is indicated at less than 15 mL/min/1.73m2. Performed By: #### 2 [id number], [id number] ####[facility] [address] [place] [address] BMPon 07-16-2022 Creatinine [Mass/Vol] 11.6 mg/dL Abnormal 0.5-1.3 [facility] Comment on above: Result Comment: Crit ical Result verified by previous result\Critical Result S_CREA:11.60 Called to SILVIO ARZOLA AT 3S by CATHY LERNER And Read Back For Confirmation at: 07/16/2022 11:03:55\Result S_CREA:11.60 Called to SILVIO ARZOLA AT 3S by CATHY LERNER And Read Back For Confirmation at: 07/16/2022 11:03:55 Performed By: #### 1 0539579, 7724208, 8705395, 6493667 #### [facility] [address] [place] [address] Anion gap [Moles/Vol] 17 mmol/L High 6-16 [facility] Comment on above: Performed By: #### 1 8792711, 8329421, 9293563, 8845368 #### [facility] [address] [place] [address] Calcium [Mass/Vol] 8.4 mg/dL Low 8.9-11.1 [facility] Comment on above: Performed By: #### 1 7117848, 1818926, 3740778, 5923628 #### [facility] [address] [place] [address] Chloride [Moles/Vol] 100 mmol/L Low 101-111 [facility] Comment on above: Performed By: #### 1 7161196, 2480540, 6648462, 9470783 #### [facility] [address] [place] [address] CO2 [Moles/Vol] 24 mmol/L Normal 21-31 [facility] Comment on above: Performed By: #### 1 3921602, 2476652, 1687888, 8224064 #### [facility] [address] [place] [address] Glucose [Mass/Vol] 293 mg/dL High 55-199 [facility] Comment on above: Result Comment: If t his glucose result represents a fasting glucose, interpretation should refer to the following reference range: 55-99 mg/dL Performed By: #### 1 2905938, 3590170, 0643788, 9273740 #### [facility] [address] [place] [address] Potassium [Moles/Vol] 4.0 mmol/L Normal 3.5-5.3 [facility] Comment on above: Performed By: #### 1 8338338, 0475021, 2275342, 6935894 #### [facility] [address] [place] [address] Sodium [Moles/Vol] 137 mmol/L Normal 135-145 [facility] Comment on above: Performed By: #### 1 2176034, 4306756, 9854529, 8555046 #### [facility] [address] [place] [address] Urea nitrogen [Mass/Vol] 47 mg/dL High 5-21 [facility] Comment on above: Performed By: #### 1 6767160, 2658405, 1029653, 1201992 #### [facility] [address] [place] [address] Urea nitrogen/Creatinine [Mass ratio] 4 No Units Low 10-20 [facility] Comment on above: Performed By: #### 1 6983195, 2211954, 4518845, 7467701 #### [facility] [address] [place] [address] Capillary Glucose POCon -0 Glucose [Mass/Vol] 207 mg/dL High 55-99 [facility] Comment on above: Result Comment: Ambrocio vargas RN/ Performed By: #### 1 1386509, 8098026, 7532288, 7318854 #### [facility] [address] [place] [address] Glucose [Mass/Vol] 167 mg/dL High 55-99 [facility] Comment on above: Result Comment: Ambrocio vargas RN/ Performed By: #### 1 3279191, 4233473, 4870739, 0722667 #### [facility] [address] [place] [address] Glucose [Mass/Vol] 266 mg/dL High 55-99 [facility] Comment on above: Result Comment: Ambrocio vargas RN/ Performed By: #### 2 896564, 48568100, 3158285 #### [facility] [address] [place] [address] Glucose [Mass/Vol] 309 mg/dL High 55-99 [facility] Comment on above: Result Comment: Danielle joe Meter Performed By: #### 2 337421, 60498804, 3124927 #### [facility] [address] [place] [address] Consent for Procedure/Surger yon 07-16-2022 Consent for Procedure/Surgery [id number]#[id number]:127 Normal [facility] Electrocardiogram - 12 leado n 07-16-2022 Electrocardiogram - 12 lead [id number]#1.00CD:127 Normal [facility] Hct & Hgbon 07-16-2022 Hematocrit (Bld) [Volume fraction] 23.9 % Low 37.7-49.0 [facility] Comment on above: Performed By: #### 1 3860780, 8276797, 5624100, 7135596 #### [facility] [address] [place] [address] Hemoglobin (Bld) [Mass/Vol] 8.2 g/dL Low 13.5-17.5 [facility] Comment on above: Performed By: #### 1 1311024, 8954330, 0477378, 5644455 #### [facility] [address] [place] [address] Interdisciplinary Note - Paresh e Manageron 07-16-2022 Interdisciplinary Note - Process Developer CRM to room and patient is down in OR with Vascular Patient is here for an infection as an inpatient. Patient was diagnosed with LUE AVF infection and thrombosis Patient was accepted to [facility] and plan will be to DC there once medically ready Normal [facility] Comment on above: Result Comment: Elec tronically Signed By: Tia White\.asael\Date and Time Signed: 07/16/22 12:44 EDT Main OR PACU I Recordon Main OR PACU I Record PACU Phase I Docum ent Type FT Summary Primary Physician: Dorian FISH, Greg Lopez Finalized Date/Time: 07/16/22 14:40:11 Pt. Name: BRIESETH/Sex: 1955 Male Med Rec #: [id number] Physician: Michael FISH, Fuentes [employer] #: [id number] Pt. Type: I Room/Bed: [place] [address] Admit/Disch: 07/12/22 14:01:25 - Institution: Case Times [...] By: Pina Goetz RN 07/16/22 14:40 Normal [facility] Monitor Recordon 07-16-2022 Monitor Record [id number]#1.00CD:127 [facility] Monitor Record [id number]#1.00CD:127 [facility] Monitor Record [id number]#1.00CD:127 [facility] Monitor Record [id number]#1.00CD:127 [facility] Progress Note - Pharmacyon 0 07-16-2022 Progress [...] have any questions, please contact pharmacy at [phone]. Age: 66 Years Allergies: ALLERGIES Weight: Last [...] mg/dL High (07/15/22 21:01:00) POC Device SN: [id number] (07/15/22 21:01:00) POC User ID: [id number] (07/15/22 21:01:00) POC Username: CLEMENCIA BROWNING (07/15/22 21:01:00) Normal [facility] Progress Note-Nurseon 2022 Progress Note-Nurse [id number]#1.00CD:127 Normal [facility] Progress Note-Physicianon Progress Note-Physician Patient: SETH MURPHY [...] segment elevation myocardial infarction / SNOMED CT 9709899216 / Confirmed Acute systolic heart failure / SNOMED CT 4775915200 / Confirmed At risk for falls / SNOMED CT 221147992 / Possible Problem added when Risk for Falls Careplan was initiated. Coronary arteriosclerosis / SNOMED CT 93873340 / Confirmed Coronary artery disease / SNOMED CT 14140467 / Confirmed MRSA (methicillin resistant staph aureus) culture positive / SNOMED CT 4761488912 / Confirmed MRSA in lt arm wound 07/12/2022 Diabetes mellitus / SNOMED CT 493667042 / Confirmed Diabetes / SNOMED CT 121666440 / Confirmed Dyspnea / SNOMED CT 199980509 / Confirmed Dysuria / SNOMED CT 00856725 / Confirmed Edema of lower extremity / SNOMED CT 393071356 / Confirmed Electrocardiogram abnormal / SNOMED CT 0431296963 / Confirmed ESRD (end stage renal disease) on dialysis / SNOMED CT 522768901 / Confirmed Essential hypertension / SNOMED CT 12075310 / Confirmed Fatigue / SNOMED CT 234276555 / Confirmed Hyperlipidemia / SNOMED CT 05300713 / Confirmed Hypertension / SNOMED CT 5463621780 / Confirmed Hypothyroid / SNOMED CT 68010463 / Confirmed Impaired skin integrity / SNOMED CT 69843431 / Confirmed Problem added on documentation of skin impairments. Left ventricular hypertrophy / SNOMED CT 94471882 / Confirmed Neuropathy due to diabetes mellitus / SNOMED CT 8348055835 / Confirmed Pseudophakia / SNOMED CT 589643692 / Confirmed Apnea, sleep / SNOMED CT 366790645 / Confirmed Thrombophlebitis / SNOMED CT 174241662 / Confirmed Venous insufficiency of leg / SNOMED CT 628721768 / Confirmed Venous stasis ulcer of leg / SNOMED CT 7646953892 / Confirmed Resolved: Anemia / SNOMED CT 443183315 Resolved: Congestive heart failure / SNOMED CT 72090107 Resolved: Hyperlipidemia / SNOMED CT 94464058 Resolved: Palpitations / SNOMED CT 514700187 Resolved: Thrombosis of superficial vein of lower limb / SNOMED CT 9742522456 Canceled: ESRD on dialysis / SNOMED CT 099535594 Histories Procedure history: Insertion of hemodialysis catheter ([id number]) on 07/02/2022 at 66 Years. Fistulogram with contrast (6113967362) on 03/15/2022 at 66 Years. Fluoroscopic fistulogram with contrast (7679147230) on 11/02/2021 at 65 Years. Fistulogram with contrast (7139494040) on 08/04/2020 at 64 Years. Removal of catheter (242339619) on 07/07/2020 at 64 Years. Comments: 07/07/2020 11:09 CYNTHIA Caballero RN, Ilene Larson removal of hemodialysis catheter HYDRAULIC CONTROLS TECHNICIAN ([id number]) on 06/16/2020 at 64 Years. Comments: 06/16/2020 14:27 Lindy Sood RN HYDRAULIC CONTROLS TECHNICIAN of Left Fistula AV - Creation of arteriovenous fistula (215287744) on 03/31/2020 at 64 Years. AV fistula recirculation ([id number]) on 08/06/2019 at 63 Years. Comments: 08/06/2019 14:34 Lizy Neal RN creation of av fistula of left arm. H/O: tracheostomy (290779941). Cholecystectomy (74007183). Abdominal hernia (600844656). Placement of stent in cardiac conduit x2 (1226814195). Social History Social & Psychosocial Habits Alcohol [...] adequate air exchange. Cardiovascular: Regular rhythm. Plan [place] [employer]hesi[employer] (ASA) physical status classification: Class IV. Anesthetic Preoperative Plan: Anesthesia General. Normal [facility] Comment on above: Result Comment: Elec [...] artery disease (I25.10: Atherosclerotic heart disease of [place] coronary artery without angina pectoris) -Aspirin, atorvastatin, [...] stage renal disease) On HD M/W/F at [facility] -Consult nephro -appreciated -- typically takes [...] deep vein thrombosis (DVT) prophylaxis (Z79.899: Other fci (current) drug therapy) -Heparin sq with early ambulation -Plan discussed w/ patient, nursing staff and CRM. This report was transcribed using voice recognition software. Every effort was made to ensure accuracy, however, inadvertently computerized litigation manager mistakes may be present. Subjective Patient seen [...] (07/16/22 06:06:00) (more content not included)... Normal [facility] Comment on above: Result Comment: Elec tronically Signed By: Vijaya SANDOVAL\.br\Date and Time Signed: 07/16/22 11:35 EDT\.br\Electronically Co-Signed By: Pedro ARAUZ MD\.br\Date and Time Co-Signed: 07/16/22 12:52 EDT Progress Note-Physician Patient: SETH MURPHY Age: 66 years Sex: Male : 1955 Associated Diagnoses: None Author: Vane Miller MD Chief Complaint Interval History 66-year-old gentleman with end-stage kidney disease on hemodialysis Saturday at [facility] (follows with Dr. Nunez, Last dialyzed on [...] As Dire (more content not included)... Normal [facility] Comment on above: Result Comment: Elec tronically Signed By: Vane Miller MD\.br\Date and Time Signed: 07/16/22 12:12 EDT Vanco Troughon 07-16-2022 VANCOMYCIN 27 microgram/mL Abnormal 10-20 [facility] Comment on above: Result Comment: Crit ical Result verified by repeat analysis\Critical Result S_VANC_T:27.0 Called to SILVIO ARZOLA AT 3S by CATHY LERNER And Read Back For Confirmation at: 07/16/2022 07:34:50 Performed By: #### 1 8904556, 6699516, 6034466, 7153924 #### [facility] [address] [place] [address] eGFRon 07-16-2022 GFR/1.73 sq M.predicted among non-blacks MDRD (S/P/Bld) [Vol rate/Area] 4 mL/min/1.73 m2 Low >=59 [facility] Comment on above: Order Comment: Order Added by Discern Expert. Result Comment: Psychologist Research Assistant jm kidney disease could be indicated at eGFR's of less than 60 mL/min/1.73m2. Kidney failure is indicated at less than 15 mL/min/1.73m2. Performed By: #### 1 2923284, 1424197, 6967914, 0755188 #### [facility] [address] [place] [address] Auto Diffon 07-15-2022 Basophils/100 WBC (Bld) 1.2 % Normal 0.0-2.0 [facility] Comment on above: Order Comment: Order Added by Discern Expert. Performed By: #### 1 7940682, 4679527, 9501343, 6781197 #### [facility] [address] [place] [address] Basophils/Leukocytes Auto (Bld) [Pure # fraction] 0.1 E9/L Normal 0.0-0.2 [facility] Comment on above: Order Comment: Order Added by Discern Expert. Performed By: #### 1 4563737, 2859844, 6610065, 3644502 #### [facility] [address] [place] [address] Eosinophils/100 WBC (Bld) 3.4 % Normal 0.0-8.0 [facility] Comment on above: Order Comment: Order Added by Discern Expert. Performed By: #### 1 2004304, 8040903, 2033943, 3022172 #### [facility] [address] [place] [address] Eosinophils/Leukocytes Auto (Bld) [Pure # fraction] 0.2 E9/L Normal 0.0-0.5 [facility] Comment on above: Order Comment: Order Added by Cayla Expert. Performed By: #### 1 5499598, 6870081, 4808019, 9416310 #### [facility] [address] [place] [address] Lymphocytes/100 WBC (Bld) 11.3 % Low 14.0-50.0 [facility] Comment on above: Order Comment: Order Added by Cayla Expert. Performed By: #### 1 0893337, 4259771, 8622144, 6360321 #### [facility] [address] [place] [address] Lymphocytes/Leukocytes Auto (Bld) [Pure # fraction] 0.6 E9/L Low 1.0-4.0 [facility] Comment on above: Order Comment: Order Added by Discern Expert. Performed By: #### 1 2225715, 3110521, 5352416, 3398700 #### [facility] [address] [place] [address] Monocytes/100 WBC (Bld) 16.4 % High 4.0-14.0 [facility] Comment on above: Order Comment: Order Added by Cayla Expert. Performed By: #### 1 5694588, 5028510, 8922837, 9522397 #### [facility] [address] [place] [address] Monocytes/Leukocytes Auto (Bld) [Pure # fraction] 0.9 E9/L Normal 0.2-1.0 [facility] Comment on above: Order Comment: Order Added by Discern Expert. Performed By: #### 1 9873208, 2880286, 7329859, 4891791 #### [facility] [address] [place] [address] Neutrophils/100 WBC (Bld) 67.7 % Normal 36.0-75.0 [facility] Comment on above: Order Comment: Order Added by Discern Expert. Performed By: #### 1 1217521, 7249509, 2467127, 5614852 #### [facility] [address] [place] [address] Neutrophils/Leukocytes Auto (Bld) [Pure # fraction] 3.7 E9/L Normal 2.0-7.5 [facility] Comment on above: Order Comment: Order Added by Discern Expert. Performed By: #### 1 0700400, 4540196, 7476039, 9129355 #### [facility] [address] [place] [address] CBC w/ Auto Diffon 3 Erythrocyte distribution width (RBC) [Ratio] 16.7 % High 10.9-14.2 [facility] Comment on above: Performed By: #### 1 2863866, 0940765, 0204022, 2703462 #### [facility] [address] [place] [address] Hematocrit (Bld) [Volume fraction] 24.3 % Low 37.7-49.0 [facility] Comment on above: Performed By: #### 1 3828158, 5523498, 8305066, 5060717 #### [facility] [address] [place] [address] Hemoglobin (Bld) [Mass/Vol] 8.0 g/dL Low 13.5-17.5 [facility] Comment on above: Performed By: #### 1 4594527, 9110189, 2111607, 3239864 #### [facility] [address] [place] [address] MCH (RBC) [Entitic mass] 29.7 pg Normal 27.0-34.0 [facility] Comment on above: Performed By: #### 1 7878085, 4779239, 1657332, 0665155 #### [facility] [address] [place] [address] MCHC (RBC) [Mass/Vol] 32.9 g/dL Normal 31.4-36.0 [facility] Comment on above: Performed By: #### 1 5909299, 3557065, 0226649, 7045354 #### [facility] [address] [place] [address] MCV (RBC) [Entitic vol] 90.1 fL Normal 80.0-100.0 [facility] Comment on above: Performed By: #### 1 2557769, 5506551, 4645920, 8968171 #### [facility] [address] [place] [address] Platelet mean volume (Bld) [Entitic vol] 7.9 fL Normal 6.4-10.8 [facility] Comment on above: Performed By: #### 1 8899118, 6473865, 3776501, 7219632 #### [facility] [address] [place] [address] Platelets (Bld) [#/Vol] 219.0 E9/L Normal 150.0-500. 0 [facility] Comment on above: Performed By: #### 1 3149412, 6794629, 5423675, 0456690 #### [facility] [address] [place] [address] RBC (Bld) [#/Vol] 2.7 E12/L Low 4.3-5.9 [facility] Comment on above: Performed By: #### 1 3526392, 7140619, 3211297, 1892644 #### [facility] [address] [place] [address] WBC corrected for nucl RBC Auto (Bld) [#/Vol] 5.5 E9/L Normal 4.0-11.0 [facility] Comment on above: Performed By: #### 1 9701300, 5994908, 2330536, 3192440 #### [facility] [address] [place] [address] CMPon 07-15-2022 Creatinine [Mass/Vol] 10.0 mg/dL Abnormal 0.5-1.3 [facility] Comment on above: Result Comment: Crit ical Result S_CREA:10.00 Called to HIRO VALERIO AT 3S by CATHY LERNER And Read Back For Confirmation at: 07/15/2022 10:15:30\Result S_CREA:10.00 Called to HIRO WILCOXING AT 3S by CATHY LERNER And Read Back For Confirmation at: 07/15/2022 10:15:30\ATTEMPTED TO CALL RESULT X2\Critical Result verified by previous result Performed By: #### 1 8106578, 3288899, 2530142, 3978472 #### [facility] [address] [place] [address] Albumin [Mass/Vol] 2.2 g/dL Low 3.3-5.0 [facility] Comment on above: Performed By: #### 1 4786018, 7321570, 4946429, 0088938 #### [facility] [address] [place] [address] Albumin/Globulin (S) [Mass conc ratio] 0.7 Low 1.1-2.2 [facility] Comment on above: Performed By: #### 1 7485588, 4571146, 5218356, 9162813 #### [facility] [address] [place] [address] ALP [Catalytic activity/Vol] 39 Int._Unit/L Normal 21-98 [facility] Comment on above: Performed By: #### 1 1350694, 4957282, 6320387, 7650194 #### [facility] [address] [place] [address] ALT No additional P-5'-P [Catalytic activity/Vol] 17 Int._Unit/L Normal 6-46 [facility] Comment on above: Performed By: #### 1 4275584, 8430963, 8193501, 4468258 #### [facility] [address] [place] [address] Anion gap [Moles/Vol] 15 mmol/L Normal 6-16 [facility] Comment on above: Performed By: #### 1 2043535, 1374482, 7396753, 4882557 #### [facility] [address] [place] [address] AST [Catalytic activity/Vol] 47 Int._Unit/L High 5-43 [facility] Comment on above: Performed By: #### 1 6017505, 6351232, 6556960, 8501964 #### [facility] [address] [place] [address] Bilirubin [Mass/Vol] 0.8 mg/dL Normal 0.0-1.1 [facility] Comment on above: Performed By: #### 1 4130660, 2813105, 6790782, 2040724 #### [facility] [address] [place] [address] Calcium [Mass/Vol] 8.6 mg/dL Low 8.9-11.1 [facility] Comment on above: Performed By: #### 1 3010668, 6010476, 4190524, 3682349 #### [facility] [address] [place] [address] Chloride [Moles/Vol] 100 mmol/L Low 101-111 [facility] Comment on above: Performed By: #### 1 2429982, 3770542, 3064548, 0277106 #### [facility] [address] [place] [address] CO2 [Moles/Vol] 24 mmol/L Normal 21-31 [facility] Comment on above: Performed By: #### 1 7970018, 1609266, 9134592, 5584912 #### [facility] [address] [place] [address] Globulin (S) [Mass/Vol] 3.2 g/dL Normal 1.4-4.0 [facility] Comment on above: Performed By: #### 1 6657571, 0172189, 2179140, 6724402 #### [facility] [address] [place] [address] Glucose [Mass/Vol] 202 mg/dL High 55-199 [facility] Comment on above: Result Comment: If t his glucose result represents a fasting glucose, interpretation should refer to the following reference range: 55-99 mg/dL Performed By: #### 1 7603445, 7577205, 4517692, 8305638 #### [facility] [address] [place] [address] Potassium [Moles/Vol] 3.7 mmol/L Normal 3.5-5.3 [facility] Comment on above: Performed By: #### 1 7606934, 3098059, 8151538, 4380642 #### [facility] [address] [place] [address] Protein [Mass/Vol] 5.4 g/dL Low 6.0-7.8 [facility] Comment on above: Performed By: #### 1 7212876, 0065360, 5619167, 1440865 #### [facility] [address] [place] [address] Sodium [Moles/Vol] 135 mmol/L Normal 135-145 [facility] Comment on above: Performed By: #### 1 5149929, 5093926, 1457615, 5808852 #### [facility] [address] [place] [address] Urea nitrogen [Mass/Vol] 42 mg/dL High 5-21 [facility] Comment on above: Performed By: #### 1 4132624, 6686139, 5133433, 9246676 #### [facility] [address] [place] [address] Urea nitrogen/Creatinine [Mass ratio] 4 No Units Low 10-20 [facility] Comment on above: Performed By: #### 1 7302926, 4339201, 2029130, 4901673 #### [facility] [address] [place] [address] Capillary Glucose POCon Glucose [Mass/Vol] 323 mg/dL High 55-99 [facility] Comment on above: Result Comment: Ambrocio ELIAS Performed By: #### 2 60100887 ####[facility] [address] [place] [address] Glucose [Mass/Vol] 297 mg/dL High - [facility] Comment on above: Performed By: #### 2 26873836 ####[facility] [address] [place] [address] Glucose [Mass/Vol] 244 mg/dL High - [facility] Comment on above: Result Comment: Ambrocio vargas RN/ Performed By: #### 2 21773075 ####[facility] [address] [place] [address] Glucose [Mass/Vol] 317 mg/dL High - [facility] Comment on above: Result Comment: Ambrocio ELIAS Performed By: #### 2 05915791 ####[facility] [address] [place] [address] Glucose [Mass/Vol] 171 mg/dL High [facility] Comment on above: Result Comment: Ambrocio ELIAS Performed By: #### 1 4105793, 9186264, 6994597, 4882943 #### [facility] [address] [place] [address] Hep Bs Agon 07-15-2022 HBV surface Ag IA Ql Negative Invalid Interpretation Code Negative [facility] Comment on above: Result Comment: Perf ormed at: [facility] [address] [id number] PhD Jany Aparicio Performed By: #### 1 [id number], 1505189, 1338202, 7112655 #### [facility] [address] [place] [address] Interdisciplinary Note - Paresh e Manageron 07-15-2022 Interdisciplinary Note - Process Developer Pt is aware [facility] has accepted. Pt will see Vascular and ID this week. Ant dc TBD. 3MN was met today. CRM to follow. Normal [facility] Comment on above: Result Comment: Elec tronically Signed By: Sarah Tena.br\Date and Time Signed: 07/15/22 11:25 EDT Monitor Recordon 07-15-2022 Monitor Record [id number]#1.00CD:127 Normal [facility] Monitor Record [id number]#1.00CD:127 Normal [facility] Monitor Record [id number]#1.00CD:127 Normal [facility] Monitor Record [id number]#1.00CD:127 Normal [facility] eGFRon 07-15-2022 GFR/1.73 sq M.predicted among non-blacks MDRD (S/P/Bld) [Vol rate/Area] 5 mL/min/1.73 m2 Low >=59 [facility] Comment on above: Order Comment: Order Added by Discern Expert. Result Comment: Psychologist Research Assistant jm kidney disease could be indicated at eGFR's of less than 60 mL/min/1.73m2. Kidney failure is indicated at less than 15 mL/min/1.73m2. Performed By: #### 1 7545726, 1843099, 8647520, 3043581 #### [facility] [address] [place] [address] Auto Diffon 07-14-2022 Basophils/100 WBC (Bld) 0.7 % Normal 0.0-2.0 [facility] Comment on above: Order Comment: Order Added by Discern Expert. Performed By: #### 1 2967757, 5978635, 5331755, 5240951 #### [facility] [address] [place] [address] Basophils/Leukocytes Auto (Bld) [Pure # fraction] 0.1 E9/L Normal 0.0-0.2 [facility] Comment on above: Order Comment: Order Added by Discern Expert. Performed By: #### 1 3534428, 7019932, 1437061, 1343134 #### [facility] [address] [place] [address] Eosinophils/100 WBC (Bld) 1.1 % Normal 0.0-8.0 [facility] Comment on above: Order Comment: Order Added by Discern Expert. Performed By: #### 1 9125021, 5402241, 1923093, 2230098 #### [facility] [address] [place] [address] Eosinophils/Leukocytes Auto (Bld) [Pure # fraction] 0.1 E9/L Normal 0.0-0.5 [facility] Comment on above: Order Comment: Order Added by Cayla Expert. Performed By: #### 1 2538554, 7253844, 6738686, 4488040 #### [facility] [address] [place] [address] Lymphocytes/100 WBC (Bld) 1.7 % Low 14.0-50.0 [facility] Comment on above: Order Comment: Order Added by Cayla Expert. Performed By: #### 1 2187448, 2933045, 1156191, 0944128 #### [facility] [address] [place] [address] Lymphocytes/Leukocytes Auto (Bld) [Pure # fraction] 0.2 E9/L Low 1.0-4.0 [facility] Comment on above: Order Comment: Order Added by Discern Expert. Performed By: #### 1 8202495, 1501127, 8296480, 7562667 #### [facility] [address] [place] [address] Monocytes/100 WBC (Bld) 6.3 % Normal 4.0-14.0 [facility] Comment on above: Order Comment: Order Added by Cayla Expert. Performed By: #### 1 4750655, 8625118, 1294463, 1618059 #### [facility] [address] [place] [address] Monocytes/Leukocytes Auto (Bld) [Pure # fraction] 0.7 E9/L Normal 0.2-1.0 [facility] Comment on above: Order Comment: Order Added by Discern Expert. Performed By: #### 1 9786540, 2862397, 4756559, 9465171 #### [facility] [address] [place] [address] Neutrophils/100 WBC (Bld) 90.2 % High 36.0-75.0 [facility] Comment on above: Order Comment: Order Added by Discern Expert. Performed By: #### 1 6451168, 1515617, 5740395, 1309631 #### [facility] [address] [place] [address] Neutrophils/Leukocytes Auto (Bld) [Pure # fraction] 9.9 E9/L High 2.0-7.5 [facility] Comment on above: Order Comment: Order Added by Discern Expert. Performed By: #### 1 0870311, 6005678, 4906681, 2338721 #### [facility] [address] [place] [address] BMPon 07-14-2022 Creatinine [Mass/Vol] 7.2 mg/dL High 0.5-1.3 [facility] Comment on above: Performed By: #### 1 4475763, 0422074, 9879861, 7901969 #### [facility] [address] [place] [address] Anion gap [Moles/Vol] 15 mmol/L Normal 6-16 [facility] Comment on above: Performed By: #### 1 6219832, 5399993, 7732505, 9371693 #### [facility] [address] [place] [address] Calcium [Mass/Vol] 8.2 mg/dL Low 8.9-11.1 [facility] Comment on above: Performed By: #### 1 1833719, 1598506, 1515618, 3464698 #### [facility] [address] [place] [address] Chloride [Moles/Vol] 98 mmol/L Low 101-111 [facility] Comment on above: Performed By: #### 1 3341618, 9971950, 5762715, 1999121 #### [facility] [address] [place] [address] CO2 [Moles/Vol] 24 mmol/L Normal 21-31 [facility] Comment on above: Performed By: #### 1 1316275, 2171458, 1570762, 4113262 #### [facility] [address] [place] [address] Glucose [Mass/Vol] 190 mg/dL Normal 55-199 [facility] Comment on above: Result Comment: If t his glucose result represents a fasting glucose, interpretation should refer to the following reference range: 55-99 mg/dL Performed By: #### 1 5698004, 7456118, 7957605, 5707979 #### [facility] [address] [place] [address] Potassium [Moles/Vol] 3.7 mmol/L Normal 3.5-5.3 [facility] Comment on above: Performed By: #### 1 7323359, 8387192, 7218592, 8351791 #### [facility] [address] [place] [address] Sodium [Moles/Vol] 133 mmol/L Low 135-145 [facility] Comment on above: Performed By: #### 1 2904739, 2388456, 5969125, 3360873 #### [facility] [address] [place] [address] Urea nitrogen [Mass/Vol] 26 mg/dL High 5-21 [facility] Comment on above: Performed By: #### 1 8443920, 0637276, 6333728, 7153635 #### [facility] [address] [place] [address] Urea nitrogen/Creatinine [Mass ratio] 4 No Units Low 10-20 [facility] Comment on above: Performed By: #### 1 4484062, 6465005, 7355455, 7472832 #### [facility] [address] [place] [address] CBC w/ Auto Diffon 3 Erythrocyte distribution width (RBC) [Ratio] 17.1 % High 10.9-14.2 [facility] Comment on above: Performed By: #### 1 1796203, 2068077, 9574201, 9721277 #### [facility] [address] [place] [address] Hematocrit (Bld) [Volume fraction] 25.5 % Low 37.7-49.0 [facility] Comment on above: Performed By: #### 1 8668769, 9455567, 5897882, 5055195 #### [facility] [address] [place] [address] Hemoglobin (Bld) [Mass/Vol] 8.5 g/dL Low 13.5-17.5 [facility] Comment on above: Performed By: #### 1 4503078, 9611637, 3393091, 4363807 #### [facility] [address] [place] [address] MCH (RBC) [Entitic mass] 29.6 pg Normal 27.0-34.0 [facility] Comment on above: Performed By: #### 1 3376205, 0646054, 6484110, 5115017 #### [facility] [address] [place] [address] MCHC (RBC) [Mass/Vol] 33.2 g/dL Normal 31.4-36.0 [facility] Comment on above: Performed By: #### 1 0555686, 1948706, 4491460, 8478576 #### [facility] [address] [place] [address] MCV (RBC) [Entitic vol] 89.4 fL Normal 80.0-100.0 [facility] Comment on above: Performed By: #### 1 9812672, 8409081, 1335126, 9552409 #### [facility] [address] [place] [address] Platelet mean volume (Bld) [Entitic vol] 7.6 fL Normal 6.4-10.8 [facility] Comment on above: Performed By: #### 1 2323864, 6209302, 6931223, 4148592 #### [facility] [address] [place] [address] Platelets (Bld) [#/Vol] 219.0 E9/L Normal 150.0-500. 0 [facility] Comment on above: Performed By: #### 1 7525242, 3500250, 0671191, 5667426 #### [facility] [address] [place] [address] RBC (Bld) [#/Vol] 2.8 E12/L Low 4.3-5.9 [facility] Comment on above: Performed By: #### 1 4936200, 2241527, 2686600, 2349898 #### [facility] [address] [place] [address] WBC corrected for nucl RBC Auto (Bld) [#/Vol] 11.0 E9/L Normal 4.0-11.0 [facility] Comment on above: Performed By: #### 1 8727179, 3196626, 5132291, 5267019 #### [facility] [address] [place] [address] Capillary Glucose POCon 06-0 -2022 Glucose [Mass/Vol] 233 mg/dL High 55-99 [facility] Comment on above: Performed By: #### 2 54945201 ####[facility] [address] [place] [address] Glucose [Mass/Vol] 144 mg/dL High 55-99 [facility] Comment on above: Result Comment: Ambrocio vargas RN/ Performed By: #### 1 3570500, 0724139, 1282793, 3057655 #### [facility] [address] [place] [address] Glucose [Mass/Vol] 202 mg/dL High 55-99 [facility] Comment on above: Result Comment: Ambrocio ELIAS Performed By: #### 2 181313, 69820622, 3301943 #### [facility] [address] [place] [address] Glucose [Mass/Vol] 180 mg/dL High 55-99 [facility] Comment on above: Result Comment: Ambrocio ELIAS Performed By: #### 1 2693031, 8665123, 8635745, 2948312 #### [facility] [address] [place] [address] Lactic Acidon 07-14-2022 Lactate [Mass/Vol] 1.1 mmol/L Normal 0.5-2.2 [facility] Comment on above: Performed By: #### 1 6425299, 0859040, 4430736, 6101963 #### [facility] [address] [place] [address] Monitor Recordon 07-14-2022 Monitor Record [id number]#1.00CD:127 Normal [facility] Monitor Record [id number]#1.00CD:127 Normal [facility] Monitor Record [id number]#1.00CD:127 Normal [facility] Progress Note-Physicianon Progress Note-Physician Assessment/Plan 1. [...] artery disease (I25.10: Atherosclerotic heart disease of [place] coronary artery without angina pectoris) -Aspirin, atorvastatin, [...] stage renal disease) On HD M/W/F at [facility] -Consult nephro - pending -BP is soft [...] deep vein thrombosis (DVT) prophylaxis (Z79.899: Other fci (current) drug therapy) -Heparin sq with early ambulation -Plan discussed w/ patient, nursing staff and CRM. This report was transcribed using voice recognition software. Every effort was made to ensure accuracy, however, inadvertently computerized litigation manager mistakes may be present. Subjective Pt seen [...] pg (0 (more content not included)... Normal [facility] Comment on above: Result Comment: Elec tronically Signed By: Vijaya SANDOVAL\.br\Date and Time Signed: 07/14/22 13:12 EDT\.br\Electronically Co-Signed By: Fuentes Rodriguez MD\.br\Date and Time Co-Signed: 07/14/22 14:51 EDT eGFRon 07-14-2022 GFR/1.73 sq M.predicted among non-blacks MDRD (S/P/Bld) [Vol rate/Area] 8 mL/min/1.73 m2 Low >=59 [facility] Comment on above: Order Comment: Order added by Discern Expert. Result Comment: Psychologist Research Assistant jm kidney disease could be indicated at eGFR's of less than 60 mL/min/1.73m2. Kidney failure is indicated at less than 15 mL/min/1.73m2. Performed By: #### 1 2932946, 8133544, 0736904, 5670432 #### [facility] [address] [place] [address] BMPon 07-13-2022 Creatinine [Mass/Vol] 9.3 mg/dL Abnormal 0.5-1.3 [facility] Comment on above: Result Comment: Crit ical Result verified by repeat analysis\Critical Result S_CREA:9.30 Called to MARYURI MCKEON AT 3S by NEDA MACHUCA And Read Back For Confirmation at: 07/13/2022 06:50:42\Result S_CREA:9.30 Called to MARYURI MCKEON AT 3S by NEDA MACHUCA And Read Back For Confirmation at: 07/13/2022 06:50:42 Performed By: #### 2 905767, 08173612, 3115029 ####[facility] [address] [place] [address] Anion gap [Moles/Vol] 16 mmol/L Normal 6-16 [facility] Comment on above: Performed By: #### 2 343850, 01684760, 7899867 ####[facility] [address] [place] [address] Calcium [Mass/Vol] 8.9 mg/dL Normal 8.9-11.1 [facility] Comment on above: Performed By: #### 2 271372, 91376065, 5081552 ####[facility] [address] [place] [address] Chloride [Moles/Vol] 101 mmol/L Normal 101-111 [facility] Comment on above: Performed By: #### 2 743405, 03966278, 7194615 ####[facility] [address] [place] [address] CO2 [Moles/Vol] 23 mmol/L Normal 21-31 [facility] Comment on above: Performed By: #### 2 257180, 25169690, 2499395 ####[facility] [address] [place] [address] Glucose [Mass/Vol] 266 mg/dL High 55-199 [facility] Comment on above: Result Comment: If t his glucose result represents a fasting glucose, interpretation should refer to the following reference range: 55-99 mg/dL Performed By: #### 2 575183, 46777392, 3039479 ####[facility] [address] [place] [address] Potassium [Moles/Vol] 3.5 mmol/L Normal 3.5-5.3 [facility] Comment on above: Performed By: #### 2 333348, 09186012, 1155371 ####[facility] [address] [place] [address] Sodium [Moles/Vol] 136 mmol/L Normal 135-145 [facility] Comment on above: Performed By: #### 2 425099, 90258958, 2467968 ####[facility] [address] [place] [address] Urea nitrogen [Mass/Vol] 31 mg/dL High 5-21 [facility] Comment on above: Performed By: #### 2 802971, 06213736, 5532046 ####[facility] [address] [place] [address] Urea nitrogen/Creatinine [Mass ratio] 3 No Units Low 10-20 [facility] Comment on above: Performed By: #### 2 411413, 05334767, 3655274 ####[facility] [address] [place] [address] CRPon 07-13-2022 CRP [Mass/Vol] 8.9 mg/dL High <=1.9 [facility] Comment on above: Performed By: #### 1 3535617, 2285693, 0498905, 9612806 #### [facility] [address] [place] [address] Capillary Glucose POCon 06-0 Glucose [Mass/Vol] 256 mg/dL High 55-99 [facility] Comment on above: Result Comment: Ambrocio ELIAS Performed By: #### 2 518248, 32589484, 3174482 #### [facility] [address] [place] [address] Glucose [Mass/Vol] 268 mg/dL High 55-99 [facility] Comment on above: Performed By: #### 1 2139725, 3113364, 5717283, 5543465 #### [facility] [address] [place] [address] Glucose [Mass/Vol] 247 mg/dL High 55-99 [facility] Comment on above: Result Comment: Ambrocio ELIAS Performed By: #### 2 68628114 #### [facility] [address] [place] [address] Glucose [Mass/Vol] 279 mg/dL High 55-99 [facility] Comment on above: Result Comment: Ambrocio vargas RN/ Performed By: #### 2 27158809 ####[facility] [address] [place] [address] Consultation Noteon 07-14-19 Consultation Note Patient: LALY MURPHY Age: 66 years Sex: Male : 1955 Associated Diagnoses: None Author: Aaron FISH Cristino Chief Complaint 07/12/2022 14:28 EDT r/o infection of fistula 07/12/2022 13:24 EDT Inpatient F/U Interval History 66-year-old gentleman with end-stage kidney disease on hemodialysis Saturday at [facility] (follows with Dr. Nunez, Last dialyzed on [...] q12hr, # 20 cap(s), Refills(s) 0, Pharmacy: [facility]/pharmacy #[id number], 178, cm, 07/09/22 17:32:00 EDT, Height/Length Dosing, [...] Daily, Refills(s) (more content not included)... Normal [facility] Comment on above: Result Comment: Elec tronically Signed By: Aaron FISH, Cristino\.br\Date and Time Signed: 07/13/22 14:44 EDT Consultation Note Patient: LALY MURPHY Age: 66 years Sex: Male : 1955 Associated Diagnoses: None Author: Alfredo Acosta M.D Chief Complaint 07/12/2022 14:28 EDT r/o infection of fistula 07/12/2022 13:24 EDT Inpatient F/U History of Present Illness -Patient presented to [facility] as a direct admit at the request [...] segment elevation myocardial infarction / SNOMED CT 7252613895 / Confirmed Acute systolic heart failure / SNOMED CT 7059348666 / Confirmed At risk for falls / SNOMED CT 876757798 / Possible Problem added when Risk for Falls Careplan was initiated. Coronary arteriosclerosis / SNOMED CT 66522731 / Confirmed Coronary artery disease / SNOMED CT 66032566 / Confirmed Diabetes mellitus / SNOMED CT 405834287 / Confirmed Diabetes / SNOMED CT 141619144 / Confirmed Dyspnea / SNOMED CT 141780032 / Confirmed Dysuria / SNOMED CT 11118273 / Confirmed Edema of lower extremity / SNOMED CT 684430690 / Confirmed Electrocardiogram abnormal / SNOMED CT 6348977071 / Confirmed ESRD (end stage renal disease) on dialysis / SNOMED CT 863330330 / Confirmed Essential hypertension / SNOMED CT 59665143 / Confirmed Fatigue / SNOMED CT 972121753 / Confirmed Hyperlipidemia / SNOMED CT 42288101 / Confirmed Hypertension / SNOMED CT 9066579278 / Confirmed Hypothyroid / SNOMED CT 94095582 / Confirmed Impaired skin integrity / SNOMED CT 75376689 / Confirmed Problem added on documentation of skin impairments. Left ventricular hypertrophy / SNOMED CT 74254951 / Confirmed Neuropathy due to diabetes mellitus / SNOMED CT 0341321058 / Confirmed Pseudophakia / SNOMED CT 118502444 / Confirmed Apnea, sleep / SNOMED CT 776761726 / Confirmed Thrombophlebitis / SNOMED CT 026815286 / Confirmed Venous insufficiency of leg / SNOMED CT 340836980 / Confirmed Venous stasis ulcer of leg / SNOMED CT 9334648343 / Confirmed Histories Past Medical History: Resolved Anemia (407955491): Onset on 05/06/2018 at 62 years. Resolved. Congestive heart failure (83060439): Onset on 05/06/2018 at 62 years. Resolved. Hyperlipidemia (10966037): Onset on 05/06/2018 at 62 years. Resolved. Palpitations (140698483): Onset on 05/06/2018 at 62 years. Resolved. Thrombosis of superficial vein of lower limb (6113841722): Onset on 05/06/2018 at 62 years. Resolved. Family History: Diabetes mellitus type 2 Mother Heart failure Mother Primary malignant neoplasm of prostate Father Acute myocardial infarction Mother Hyperlipidemia Mother Procedure history: Insertion of hemodialysis catheter (9307044701) on 07/02/2022 at 66 Years. Fistulogram with contrast (4331175464) on 03/15/2022 at 66 Years. Fluoroscopic fistulogram with contrast (2271218585) on 11/02/2021 at 65 Years. Fistulogram with contrast (3286298920) on 08/04/2020 at 64 Years. Removal of catheter (900385308) on 07/07/2020 at 64 Years. 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 Comments: 06/16/2020 14:27 E (more content not included)... Normal [facility] Comment on above: Result Comment: Elec tronically Signed By: Alfredo Acosta M.D\Date and Time Signed: 07/13/22 09:50 EDT Interdisciplinary Note - Paresh e Manageron 07-13-2022 Interdisciplinary Note - Process Developer Pt is awake and alert in bed previously rounded with Nathalie CARRERA. Pt is aware of plan to stay in hospital until at least Saturday to see Vascular. Pt is from home with and she will transport at [place]. Pt is currentwith HD at [facility] on Sat, Sat, Sat at noon. Inpateint status reviewed, Medicare rights reviewed, form signed and original provided to pt. . PCP verified and insurance information reviewed and DME discussed. Contact information provided and white board updated. Normal [facility] Comment on above: Result Comment: Elec [...] TORREZ, Nathalie CARRERA Follow up: Yes Normal [facility] Lactic Acidon 07-13-2022 Lactate [Mass/Vol] 2.3 mmol/L High 0.5-2.2 [facility] Comment on above: Order Comment: Order added by EKS Rule. (FT_LACTIC_ACID_REFLEX) Adds reflex Lactic Acid 4 hours after initial if result is greater than or equal to 2.0. Performed By: #### 2 031923 ####[facility] [address] [place] [address] Lactate [Mass/Vol] 5.9 mmol/L Abnormal 0.5-2.2 [facility] Comment on above: Result Comment: Crit ical Result verified by repeat analysis\Critical Result S_LAC:5.9Called to STEVE ESTRELLA AT 3S by NEDA MACHUCA And Read Back For Confirmation at: 07/13/2022 12:52:22 Performed By: #### 1 6738338, 7502584, 0604473, 2579658 #### [facility] [address] [place] [address] Monitor Recordon 07-13-2022 Monitor Record [id number]#1.00CD:127 Normal [facility] Monitor Record [id number]#1.00CD:127 Normal [facility] Monitor Record [id number]#1.00CD:127 Normal [facility] Progress Note - Pharmacyon 0 07-13-2022 Progress [...] any questions, please contact the pharmacy at [phone]. Age: 66 Years Allergies: Brilinta; Coban Bandage [...] Lymph Auto: 11 % Low (07/12/22 16:34:00) [place] Auto: 13.7 % (07/12/22 16:34:00) Eos Auto: 1.5 % (07/12/22 16:34:00) Basophil Auto: 0.8 % (07/12/22 16:34:00) Neutro Absolute: 5.9 E9/L (07/12/22 16:34:00) Lymph Absolute: 0.9 E9/L Low (07/12/22 16:34:00) [place] Absolute: 1.1 E9/L High (07/12/22 16:34:00) Eos [...] mg/dL High (07/12/22 20:34:00) POC Device SN: [id number] (07/12/22 20:34:00) POC User ID: [id number] (07/12/22 20:34:00) POC Username: URBANO MOJICA (07/12/22 20:34:00) Normal [facility] Progress Note-Nurseon 2022 Progress Note-Nurse Tx tolerated well, hypotension at beginning of Tx, no other significant issues. 0L removed Pre wt 94 Post wt 95 Normal [facility] Progress Note-Physicianon Progress Note-Physician Assessment/Plan 1. [...] artery disease (I25.10: Atherosclerotic heart disease of [place] coronary artery without angina pectoris) -Aspirin, atorvastatin, [...] stage renal disease) On HD M/W/F at [facility] -Consult nephro - pending -BP is soft [...] deep vein thrombosis (DVT) prophylaxis (Z79.899: Other terminal carman (current) drug therapy) -Heparin sq with early [...] Start date (more content not included)... Normal [facility] Comment on above: Result Comment: Elec [...] MD Transcribed by: JASPREET Technologist: EVARISTO Normal [facility] Vanco Troughon 07-13-2022 VANCOMYCIN 50 microgram/mL Abnormal 10-20 [facility] Comment on above: Result Comment: Crit ical Result verified by repeat analysis\Critical Result S_VANC_T:50.0 Called to MARYURI MCKEON AT 3S by NEDA MACHUCA And Read Back For Confirmation at: 07/13/2022 06:49:48 Performed By: #### 2 706593, 08835870, 5078096 #### [facility] [address] [place] [address] WBCon 07-13-2022 WBC corrected for nucl RBC Auto (Bld) [#/Vol] 23.8 E9/L High 4.0-11.0 [facility] Comment on above: Performed By: #### 1 9963144, 4496036, 2819838, 3745012 #### [facility] [address] [place] [address] XR Chest 2 Viewson 3 XR Chest [...] mGy = na DAP = na Normal [facility] eGFRon 07-13-2022 GFR/1.73 sq M.predicted among non-blacks MDRD (S/P/Bld) [Vol rate/Area] 6 mL/min/1.73 m2 Low >=59 [facility] Comment on above: Order Comment: Order added by Discern Expert. Result Comment: Psychologist Research Assistant jm kidney disease could be indicated at eGFR's of less than 60 mL/min/1.73m2. Kidney failure is indicated at less than 15 mL/min/1.73m2. Performed By: #### 2 024984, 54280457, 3229626 #### [facility] [address] [place] [address] 11097 Auto Diffon 07-12-2022 Basophils/100 WBC (Bld) 0.8 % Normal 0.0-2.0 [facility] Comment on above: Order Comment: Order Added by Discern Expert. Performed By: #### 1 5803859, 6986603, 3446619, 6956188 #### [facility] [address] [place] [address] 45969 Basophils/Leukocytes Auto (Bld) [Pure # fraction] 0.1 E9/L Normal 0.0-0.2 [facility] Comment on above: Order Comment: Order Added by Discern Expert. Performed By: #### 1 2535774, 8988838, 5183031, 5517706 #### [facility] [address] [place] [address] 05577 Eosinophils/100 WBC (Bld) 1.5 % Normal 0.0-8.0 [facility] Comment on above: Order Comment: Order Added by Discern Expert. Performed By: #### 1 2335615, 6248994, 1859069, 8532959 #### [facility] [address] [place] [address] 94016 Eosinophils/Leukocytes Auto (Bld) [Pure # fraction] 0.1 E9/L Normal 0.0-0.5 [facility] Comment on above: Order Comment: Order Added by Discern Expert. Performed By: #### 1 4557373, 5247014, 3709613, 5667450 #### [facility] [address] [place] [address] 41625 Lymphocytes/100 WBC (Bld) 11.0 % Low 14.0-50.0 [facility] Comment on above: Order Comment: Order Added by Discern Expert. Performed By: #### 1 1053902, 0761407, 3540442, 0342650 #### [facility] [address] [place] [address] 91656 Lymphocytes/Leukocytes Auto (Bld) [Pure # fraction] 0.9 E9/L Low 1.0-4.0 [facility] Comment on above: Order Comment: Order Added by Discern Expert. Performed By: #### 1 7500251, 8362691, 1383999, 1605043 #### [facility] [address] [place] [address] 04842 Monocytes/100 WBC (Bld) 13.7 % Normal 4.0-14.0 [facility] Comment on above: Order Comment: Order Added by Cayla Expert. Performed By: #### 1 1790056, 3257180, 2654786, 7931315 #### [facility] [address] [place] [address] 48536 Monocytes/Leukocytes Auto (Bld) [Pure # fraction] 1.1 E9/L High 0.2-1.0 [facility] Comment on above: Order Comment: Order Added by Cayla Expert. Performed By: #### 1 9354010, 9815450, 7618768, 6466006 #### [facility] [address] [place] [address] 43327 Neutrophils/100 WBC (Bld) 73.0 % Normal 36.0-75.0 [facility] Comment on above: Order Comment: Order Added by Cayla Expert. Performed By: #### 1 3987558, 9941016, 8413894, 6381367 #### [facility] [address] [place] [address] 96107 Neutrophils/Leukocytes Auto (Bld) [Pure # fraction] 5.9 E9/L Normal 2.0-7.5 [facility] Comment on above: Order Comment: Order Added by Cayla Expert. Performed By: #### 1 1577938, 0953174, 3133770, 6214239 #### [facility] [address] [place] [address] 41000 BMPon 07-12-2022 Creatinine [Mass/Vol] 7.6 mg/dL Abnormal 0.5-1.3 [facility] Comment on above: Result Comment: Crit ical Result verified by previous result\Critical Result verified by repeat analysis\Critical Result S_CREA:7.60 Called to JOHANNE BUNCH AT 3N by NOEL ORNELAS And Read Back For Confirmation at: 07/12/2022 16:57:45 Performed By: #### 1 6762984, 7986550, 1178375, 6754016 #### [facility] [address] [place] [address] Urea nitrogen [Mass/Vol] 26 mg/dL High 5-21 [facility] Comment on above: Performed By: #### 1 0353390, 5554955, 0763821, 7463995 #### [facility] [address] [place] [address] Urea nitrogen/Creatinine [Mass ratio] 3 No Units Low 10-20 [facility] Comment on above: Performed By: #### 1 6933091, 7161349, 2045154, 8936184 #### [facility] [address] [place] [address] Anion gap [Moles/Vol] 15 mmol/L Normal 6-16 [facility] Comment on above: Performed By: #### 1 0893841, 0124453, 7201407, 4979341 #### [facility] [address] [place] [address] Calcium [Mass/Vol] 9.2 mg/dL Normal 8.9-11.1 [facility] Comment on above: Performed By: #### 1 5369602, 2799296, 6100781, 8037219 #### [facility] [address] [place] [address] Chloride [Moles/Vol] 98 mmol/L Low 101-111 [facility] Comment on above: Performed By: #### 1 8491438, 7428187, 5615567, 8626637 #### [facility] [address] [place] [address] CO2 [Moles/Vol] 25 mmol/L Normal 21-31 [facility] Comment on above: Performed By: #### 1 6838101, 7329801, 7319096, 2063872 #### [facility] [address] [place] [address] Glucose [Mass/Vol] 203 mg/dL High 55-199 [facility] Comment on above: Result Comment: If t his glucose result represents a fasting glucose, interpretation should refer to the following reference range: 55-99 mg/dL Performed By: #### 1 7780746, 7443812, 3276306, 6338119 #### [facility] [address] [place] [address] Potassium [Moles/Vol] 4.2 mmol/L Normal 3.5-5.3 [facility] Comment on above: Performed By: #### 1 2876054, 3327810, 7437290, 6711136 #### [facility] [address] [place] [address] Sodium [Moles/Vol] 134 mmol/L Low 135-145 [facility] Comment on above: Performed By: #### 1 2397832, 5436910, 8431536, 9065658 #### [facility] [address] [place] [address] CBC w/ Auto Diffon 3 Erythrocyte distribution width (RBC) [Ratio] 16.8 % High 10.9-14.2 [facility] Comment on above: Performed By: #### 1 0759644, 8438494, 9400524, 1200721 #### [facility] [address] [place] [address] Hematocrit (Bld) [Volume fraction] 28.7 % Low 37.7-49.0 [facility] Comment on above: Performed By: #### 1 8430115, 1104150, 5681594, 0302266 #### [facility] [address] [place] [address] Hemoglobin (Bld) [Mass/Vol] 9.5 g/dL Low 13.5-17.5 [facility] Comment on above: Performed By: #### 1 6666178, 0778376, 1435272, 2641672 #### [facility] [address] [place] [address] MCH (RBC) [Entitic mass] 29.6 pg Normal 27.0-34.0 [facility] Comment on above: Performed By: #### 1 2046659, 3719277, 6839312, 7940856 #### [facility] [address] [place] [address] MCHC (RBC) [Mass/Vol] 33.1 g/dL Normal 31.4-36.0 [facility] Comment on above: Performed By: #### 1 9934000, 0654559, 4148570, 5473170 #### [facility] [address] [place] [address] MCV (RBC) [Entitic vol] 89.5 fL Normal 80.0-100.0 [facility] Comment on above: Performed By: #### 1 8200138, 4392803, 4126616, 0011851 #### [facility] [address] [place] [address] 08365 Platelet mean volume (Bld) [Entitic vol] 7.4 fL Normal 6.4-10.8 [facility] Comment on above: Performed By: #### 1 3307366, 7899079, 5962268, 4975275 #### [facility] [address] [place] [address] 01689 Platelets (Bld) [#/Vol] 284.0 E9/L Normal 150.0-500. 0 [facility] Comment on above: Performed By: #### 1 1550804, 3259785, 8241851, 1898478 #### [facility] [address] [place] [address] 85337 RBC (Bld) [#/Vol] 3.2 E12/L Low 4.3-5.9 [facility] Comment on above: Performed By: #### 1 8152797, 0371728, 1391400, 2853240 #### [facility] [address] [place] [address] 31441 WBC corrected for nucl RBC Auto (Bld) [#/Vol] 8.1 E9/L Normal 4.0-11.0 [facility] Comment on above: Performed By: #### 1 4917167, 4129080, 3756209, 9163816 #### [facility] [address] [place] [address] Capillary Glucose POCon Glucose [Mass/Vol] 287 mg/dL High 55-99 [facility] Comment on above: Result Comment: Ambrocio vargas RN/ Performed By: #### 1 9405765, 1105507, 6948060, 3528698 #### [facility] [address] [place] [address] Glucose [Mass/Vol] 191 mg/dL High 55-99 [facility] Comment on above: Result Comment: Ambrocio ELIAS Performed By: #### 1 5021253, 0259741, 2471557, 8334852 #### [facility] [address] [place] [address] Consent for Treatmenton Consent for Treatment [id number]#[id number]:127 Normal [facility] Consent for Treatment [id number]#1.00CD:127 Normal [facility] Heart and Vascular Office/Cl inic Noteon 07-12-2022 [...] with contrast (08/04/2020), Removal of catheter (07/07/2020), 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), AV - Creation of arteriovenous fistula [...] History Alcohol (more content not included)... Normal [facility] Comment on above: Result Comment: Elec [...] questions, please contact the pharmacy at extension [phone]. Age: 66 Years Allergies: ALLERGIES Weight: Last [...] Lymph Auto: 11 % Low (07/12/22 16:34:00) [place] Auto: 13.7 % (07/12/22 16:34:00) Eos Auto: 1.5 % (07/12/22 16:34:00) Basophil Auto: 0.8 % (07/12/22 16:34:00) Neutro Absolute: 5.9 E9/L (07/12/22 16:34:00) Lymph Absolute: 0.9 E9/L Low (07/12/22 16:34:00) [place] Absolute: 1.1 E9/L High (07/12/22 16:34:00) Eos [...] mg/dL High (07/12/22 16:44:00) POC Device SN: [id number] (07/12/22 16:44:00) POC User ID: [id number] (07/12/22 16:44:00) POC Username: MIKEY CUEVAS (07/12/22 16:44:00) Normal [facility] eGFRon 07-12-2022 GFR/1.73 sq M.predicted among non-blacks MDRD (S/P/Bld) [Vol rate/Area] 7 mL/min/1.73 m2 Low >=59 [facility] Comment on above: Order Comment: Order added by Discern Expert. Result Comment: Psychologist Research Assistant jm kidney disease could be indicated at eGFR's of less than 60 mL/min/1.73m2. Kidney failure is indicated at less than 15 mL/min/1.73m2. Performed By: #### 1 8927283, 7628833, 4940517, 6023488 #### [facility] [address] [place] [address] ED Note-Physicianon 07-12-19 ED Note-Physician Basic Information Time Seen: Jose L WAITE, Zack Millan 07/09/2022 17:42 Chief Complaint L arm fistula issues for approx. 3 weeks. sent over after [facility] center spoke with Dr. Alarcon and referred here for US. temp. HD cath placed on 07/02. L arm has been intermittently bleeding as well. History of Present Illness A 66-year-old male reports emergency department with a chief complaint of left arm fistula issues have been going on for about 3 weeks now. States he was sent over after dialysis while he was at [facility]. Reports has been just constantly bleeding. He reports that the [place] dialysis center did speak with his vascular [...] and Complexity of Problems Differential Diagnosis: [] [facility] Data External documents reviewed: [] My EKG [...] q12hr, # 20 cap(s), Refills(s) 0, Pharmacy: [facility][id number], 178, cm, 07/09/22 17:32:00 EDT, Height/Length [...] Alarcon In 3 days 07/12/2022 EDT [address] [place] [address]- Business (1) Additional Instructions: Follow-up with Dr. Alarcon for further evaluation of your fistula. Nav Hoy In 3 days 07/12/2022 EDT [address] [place] [address]- Business (1) Additional Instructions: Follow-up with your primary ca (more content not included)... Normal [facility] Comment on above: Result Comment: Elec tronically Signed By: Jose L WAITE, Zack Millan\.br\Date and Time Signed: 07/09/22 20:28 EDT\.br\Electronically Co-Signed By: Adam Weinberg M.D..br\Date and Time Co-Signed: 07/11/22 07:12 EDT US AV Fistula/Ramsey 2022 US AV Fistula/Graft Exam Date/Time: 07/09/2022 [...] Type of Fistula/Graft: brachiocephalic Laterality: Left. Normal [facility] US UE Venous Duplex Lefton 0 [...] and left pulmonary vein. Ordering Provider: Zack Campos FINAL REPORT Dictated: 07/10/2022 9:05 am Tyler Dominguez MD Signed (Electronic Signature): 07/10/2022 9:05 am Signed by: Tyler Dominguez MD Transcribed by: JASPREET Technologist: FRANSISCA Normal [facility] Consent for Treatmenton 06-12 Consent for Treatment [id number]:127 Normal [facility] Discharge Instructionson Discharge Instructions [id number]#[id number]:127 Normal [facility] ED Clinical Summaryon 2022 ED Clinical Summary (Inserted Image. Dejah ble to display) [address] [address] ED Clinical Summary Person Information Name: SETH MURPHY/Abel Age: 66 Years : 1955 Sex: Male Language: [place] Islander PCP: Nav Alejo MD Marital Status: Visit [...] 19:31:06 07/09/2022 19:31:06 07/09/2022 19:31:06 ADDRESS: [address] [facility] [id number] PHYS DOC NOTES: MEDICAL INFORMATION: Prescriptions Given: New Medications [id number], [address], [place] [id number], [phone] cephalexin (Keflex 500 mg Cap) 1 Capsules [...] up: With: Address: When: Greg Alarcon [address] [place] [address] Business (1) In 3 days 07/12/2022 Comments: Follow-up with Dr. Alarcon for further evaluation of your fistula. With: Address: When: Nav Alejo [address] [facility], [place] [address] Business (1) In 3 days 07/12/2022 Comments: Follow-up with your primary care provider in 3 to 5 days. If symptoms worsen, do not improve, or new symptoms arise please report back to emergency department for further evaluation. DIAGNOSIS: Superficial thrombophlebitis Normal [facility] ED Patient Education Noteon 07-09-2022 ED [...] these instructions at home: Medicines ? Take psji-mbf-dnlmanc and prescription medicines only as told by [...] cigarettes, chew (more content not included)... Normal [facility] ED Patient Summaryon 023 ED Patient Summary (Inserted Image. Dejah ble to display) [address] [address] Patient Discharge Instructions Person Information Name: SETH MURPHY Age: 66 Years Arrival Date: 07/09/2022 17:21:55 Discharge Diagnosis: Superficial thrombophlebitis Primary Care Physician: Nav Alejo MD Provider Information Primary Provider: Adam Weinberg M.D. Advanced Sponge Maker:None The exam and treatment you received in the Emergency Department were for an urgent problem and are not intended as complete care. It is important that you follow up with a doctor, nurse practitioner, or physician?s therapist's assistant for ongoing care. If your symptoms [...] Follow-up Instructions: With: Address: When: Greg Alarcon [address] [place] [address] Business (1) In 3 days 07/12/2022 Comments: Follow-up with Dr. Alarcon for further evaluation of your fistula. With: Address: When: Nav Alejo [address] [facility], [address] [place] [id number] Business (1) In 3 days 07/12/2022 Comments: [...] opioids can be used to help relieve fadfvzdq-gz-ssppak pain and are often prescribed following a [...] flush the (more content not included)... 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 Normal [facility] Comment on above: Result Comment: Elec tronically Signed By: Brian SHIN, Sarah Ugalde\.br\Date and Time Signed: 07/03/22 21:20 EDT\.br\Electronically Co-Signed By: Jatin Fournier MD\.br\Date and Time Co-Signed: 07/04/22 12:37 EDT Discharge Instructionson Discharge Instructions [id number]#[id number]:127 Normal [facility] Progress Note-Nurseon 2022 Progress Note-Nurse [id number]#1.00CD:127 Normal [facility] Auto Diffon 07-03-2022 Basophils/100 WBC (Bld) 0.3 % Normal 0.0-2.0 [facility] Comment on above: Order Comment: Order Added by Discern Expert. Performed By: #### 2 328247, 9592406, 7297630, 91009384 ####[facility] [address] [place] [address] Basophils/Leukocytes Auto (Bld) [Pure # fraction] 0.0 E9/L Normal 0.0-0.2 [facility] Comment on above: Order Comment: Order Added by Discern Expert. Performed By: #### 2 465215, 5639973, 3508178, 89234724 ####[facility] [address] [place] [address] Eosinophils/100 WBC (Bld) 1.0 % Normal 0.0-8.0 [facility] Comment on above: Order Comment: Order Added by Discern Expert. Performed By: #### 2 348787, 0671791, 8003900, 84050665 ####[facility] [address] [place] [address] Eosinophils/Leukocytes Auto (Bld) [Pure # fraction] 0.1 E9/L Normal 0.0-0.5 [facility] Comment on above: Order Comment: Order Added by Discern Expert. Performed By: #### 2 933980, 3351228, 6392823, 12477134 ####[facility] [address] [place] [address] Lymphocytes/100 WBC (Bld) 9.1 % Low 14.0-50.0 [facility] Comment on above: Order Comment: Order Added by Discern Expert. Performed By: #### 2 573666, 6428118, 1445971, 25687677 ####[facility] [address] [place] [address] Lymphocytes/Leukocytes Auto (Bld) [Pure # fraction] 0.6 E9/L Low 1.0-4.0 [facility] Comment on above: Order Comment: Order Added by Cayla Expert. Performed By: #### 2 827320, 6621836, 7036385, 85135139 ####[place] [address] [place] [address] Monocytes/100 WBC (Bld) 16.7 % High 4.0-14.0 [facility] Comment on above: Order Comment: Order Added by Cayla Expert. Performed By: #### 2 916940, 8186239, 1870399, 48593549 ####[facility] [address] [place] [address] Monocytes/Leukocytes Auto (Bld) [Pure # fraction] 1.2 E9/L High 0.2-1.0 [facility] Comment on above: Order Comment: Order Added by Discern Expert. Performed By: #### 2 510022, 9173347, 8264144, 39594908 ####[facility] [address] [place] [address] Neutrophils/100 WBC (Bld) 72.9 % Normal 36.0-75.0 [facility] Comment on above: Order Comment: Order Added by Cayla Expert. Performed By: #### 2 401143, 9654885, 9209167, 94348556 ####[facility] [address] [place] [address] Neutrophils/Leukocytes Auto (Bld) [Pure # fraction] 5.2 E9/L Normal 2.0-7.5 [facility] Comment on above: Order Comment: Order Added by Discern Expert. Performed By: #### 2 334759, 4855036, 7831748, 54660240 ####[facility] [address] [place] [address] BMPon 07-03-2022 Anion gap [Moles/Vol] 19 mmol/L High 6-16 [facility] Comment on above: Performed By: #### 2 571315, 1426040, 9208355, 91821153 ####[facility] [address] [place] [address] Calcium [Mass/Vol] 8.3 mg/dL Low 8.9-11.1 [facility] Comment on above: Performed By: #### 2 494391, 8027594, 5665139, 47932317 ####[facility] [address] [place] [address] Chloride [Moles/Vol] 98 mmol/L Low 101-111 [facility] Comment on above: Performed By: #### 2 161652, 9323572, 7687291, 91379092 ####[facility] [address] [place] [address] CO2 [Moles/Vol] 23 mmol/L Normal 21-31 [facility] Comment on above: Performed By: #### 2 144047, 9931846, 9439776, 75738465 ####[facility] [address] [place] [address] Creatinine [Mass/Vol] 17.8 mg/dL Abnormal 0.5-1.3 [facility] Comment on above: Result Comment: Crit ical Result S_CREA:17.80 Called to BRADY SILVERMAN AT 3N by CATHY LERNER And Read Back For Confirmation at: 07/03/2022 07:23:33\Critical Result verified by previous result Performed By: #### 2 770927, 6631804, 1826246, 36400909 ####[facility] [address] [place] [address] Glucose [Mass/Vol] 226 mg/dL High 55-199 [facility] Comment on above: Result Comment: If t his glucose result represents a fasting glucose, interpretation should refer to the following reference range: 55-99 mg/dL Performed By: #### 2 856457, 1144502, 4987638, 25254771 ####[facility] [address] [place] [address] Potassium [Moles/Vol] 4.8 mmol/L Normal 3.5-5.3 [facility] Comment on above: Performed By: #### 2 686554, 6548361, 9984567, 76651555 ####[facility] [address] [place] [address] Sodium [Moles/Vol] 135 mmol/L Normal 135-145 [facility] Comment on above: Performed By: #### 2 403902, 1277318, 4445768, 68997634 ####[facility] [address] [place] [address] Urea nitrogen [Mass/Vol] 88 mg/dL Abnormal 5-21 [facility] Comment on above: Result Comment: Crit ical Result S_BUN:88 Called to BRADY SILVERMAN AT 3N by CATHY LERNER And Read Back For Confirmation at: 07/03/2022 07:23:33\Critical Result verified by previous result Performed By: #### 2 068667, 4591478, 2334967, 19047390 ####[facility] [address] [place] [address] Urea nitrogen/Creatinine [Mass ratio] 5 No Units Low 10-20 [facility] Comment on above: Performed By: #### 2 686746, 4553967, 3543099, 86492732 ####[facility] [address] [place] [address] CBC w/ Auto Diffon 3 Erythrocyte distribution width (RBC) [Ratio] 17.0 % High 10.9-14.2 [facility] Comment on above: Performed By: #### 2 085969, 7980698, 2546491, 89986986 ####[place] [address] Hematocrit (Bld) [Volume fraction] 26.8 % Low 37.7-49.0 [facility] Comment on above: Performed By: #### 2 475062, 6996254, 4575773, 72821181 ####[place] [address] Hemoglobin (Bld) [Mass/Vol] 9.2 g/dL Low 13.5-17.5 [facility] Comment on above: Performed By: #### 2 211591, 8489386, 2043644, 56565686 ####[place] [address] MCH (RBC) [Entitic mass] 30.4 pg Normal 27.0-34.0 [facility] Comment on above: Performed By: #### 2 709932, 1596127, 0025074, 07684523 ####[place] [address] MCHC (RBC) [Mass/Vol] 34.3 g/dL Normal 31.4-36.0 [facility] Comment on above: Performed By: #### 2 792605, 6987338, 9666271, 87329963 ####[address] [address] MCV (RBC) [Entitic vol] 88.5 fL Normal 80.0-100.0 [facility] Comment on above: Performed By: #### 2 508760, 9859141, 4385777, 96536062 ####[address] [address] Platelet mean volume (Bld) [Entitic vol] 8.4 fL Normal 6.4-10.8 [facility] Comment on above: Performed By: #### 2 554107, 3964912, 2857996, 25165674 ####[facility] [address] [place] [address] Platelets (Bld) [#/Vol] 155.0 E9/L Normal 150.0-500. 0 [facility] Comment on above: Performed By: #### 2 060963, 4503005, 7243986, 44593520 ####[facility] [address] [place] [address] RBC (Bld) [#/Vol] 3.0 E12/L Low 4.3-5.9 [facility] Comment on above: Performed By: #### 2 308457, 6271738, 9433492, 46781724 ####[facility] [address] [place] [address] WBC corrected for nucl RBC Auto (Bld) [#/Vol] 7.1 E9/L Normal 4.0-11.0 [facility] Comment on above: Result Comment: Slid e reviewed by BC. Performed By: #### 2 269905, 9987006, 0203528, 98590379 ####[facility] [address] [place] [address] Capillary Glucose POCon 06-12 Glucose [Mass/Vol] 146 mg/dL High 55-99 [facility] Comment on above: Result Comment: Ambrocio ELIAS Performed By: #### 2 [id number] #### [facility] [address] [place] [address] Glucose [Mass/Vol] 158 mg/dL High 55-99 [facility] Comment on above: Result Comment: Ambrocio ELIAS Performed By: #### 2 [id number] #### [facility] [address] [place] [address] Cardiovascular Reporton 06-12 Cardiovascular Report [id number]#2.00CD:127 Normal [facility] Discharge Note-Nursingon Discharge Note-Nursing SETH MURPHY :1955 [...] with contrast (08/04/2020), Removal of catheter (07/07/2020), 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 Normal [facility] Inpatient Clinical Summaryon 07-03-2022 Inpatient Clinical Summary [place] [id number] Clinical Summary Person Information: Name: SETH MURPHY Age: 66 Years : 1955 Sex: Male PCP: Nav Alejo MD Marital Status: Race: White Ethnicity: Non- or Language: [place]er Visit Id: Visit Reason: PERMACATH PLACEMENT FOR DIALYSIS Speciality: Acuity: Enc Type: Observation Med Service: Medical Arrival: 07/02/2022 12:21:12 Discharge: Dispo Type: Address: [address] [facility] [id number] Provider Notes: Diagnosis: 1:ESRD on dialysis; 2:Diabetes; [...] Physician: Jatin Fournier MD Referring Physician: Greg Alarcon MD Follow up: With: Address: When: Greg Alarcon [address] [place], [place] [id number] Business (1) Within 1 to 2 weeks With: Address: When: Nav Alejo [address] [place] [address], [place] [address] Business (1) Within 3 to 5 days Patient Education Information: CV - Cardiovascular Discharge Instructions (CUSTOM) [facility] Inpatient Patient Summaryon 07-03-2022 Inpatient Patient Summary [address] [address] Patient Discharge Instructions PERSON INFORMATION Name: SETH MURPHY Date of : 1955 Current Date: 07/03/2022 08:33:25 PHYSICIANS Admitting Physician: Greg Alarcon MD Primary Care Physician: Nav Alejo MD PCP Comment: Discharge Diagnosis: 1:ESRD on dialysis; 2:Diabetes; 3:Hypertension; 4:Hyperlipidemia; 5:Coronary artery disease; 6:Hypothyroid; 7:No contraindication to deep vein thrombosis (DVT) prophylaxis Condition at Discharge: Improved SETH MUPRHY has been given the following list of [...] 2 weeks With: Address: When: Nav Alejo [address] [place] [address], [address] [place], [place] [id number] Business (1) Within 3 to 5 days [...] every day as needed Constipation. Pharmacy Information: [facility] , Other: [facility] Comment: PATIENT EDUCATION INFORMATION Instructions: [place], [place] CARDIOVASCULAR DISCHARGE INSTRUCTIONS Diet: ? Resume pre-procedure diet. ? Inc (more content not included)... Normal [facility] Interdisciplinary Note - Paresh e Manageron 07-03-2022 Interdisciplinary Note - Process Developer Pt is asleep in bed, receiving dialysis at this time. Pt is from home with , previously rounded with Dr. Arauz and plan to DC home after dialysis. contact information provided and white board updated. CRM following. [facility] Comment on above: Result Comment: Elec tronically Signed By: Obie TORREZ, Alaina\.br\Date and Time Signed: 07/03/22 10:14 EDT Monitor Recordon 07-03-2022 Monitor Record [id number]#1.00CD:127 Normal [facility] Monitor Record [id number]#1.00CD:127 Normal [facility] Monitor Record [id number]#1.00CD:127 Normal [facility] Monitor Record [id number]#1.00CD:127 [facility] Patient Education - Texton 0 07-03-2022 Patient Education - Text [place], [place] CARDIOVASCULAR DISCHARGE INSTRUCTIONS Diet: ? Resume [...] you are interested in smoking cessation, contact [facility] at [phone], ext. [phone]. ? In the event you are unable to reach your physician, please call [facility] at [phone] and the irrigating pump operator will assist you. Seek Immediate Medical Care for: ? Bleeding: Apply continuous pressure to the site and Call 911. ? Should the arm or leg become cold, numb, blue or white call your physician immediately. ? Signs of infection are redness, warmth, swelling, increased tenderness, colored drainage, fever or chills ? Chest pain Normal [facility] Progress Note-Physicianon Progress Note-Physician Assessment/Plan 1. ESRD [...] artery disease (I25.10: Atherosclerotic heart disease of [place] coronary artery without angina pectoris) - stable, [...] mg/dL High (07/02/22 20:48:00) POC Device SN: [id number] (07/02/22 20:48:00) POC User ID: [id number] (07/02/22 20:48:00) POC Username: PINA HU (07/02/22 [...] cefazolin ad (more content not included)... Normal [facility] Comment on above: Result Comment: Elec tronically Signed By: Pedro ARAUZ MD\.br\Date and Time Signed: 07/03/22 08:34 EDT eGFRon 07-03-2022 GFR/1.73 sq M.predicted among non-blacks MDRD (S/P/Bld) [Vol rate/Area] 3 mL/min/1.73 m2 Low >=59 [facility] Comment on above: Order Comment: Order added by Discern Expert. Result Comment: Psychologist Research Assistant jm kidney disease could be indicated at eGFR's of less than 60 mL/min/1.73m2. Kidney failure is indicated at less than 15 mL/min/1.73m2. Performed By: #### 2 [id number], 8439656, 3360093, [id number] ####[facility] [address] [place] [address] BMPon 07-02-2022 Creatinine [Mass/Vol] 16.8 mg/dL Abnormal 0.5-1.3 [facility] Comment on above: Result Comment: Crit ical Result S_CREA:16.80 Called to LINDY MELTON AT [facility] by CATHY LERNER And Read Back For Confirmation at: 07/02/2022 13:30:56\Critical Result verified by repeat analysis Performed By: #### 1 [id number], 2967102, 7825584, 9237255 #### [facility] [address] [place] [address] Urea nitrogen [Mass/Vol] 78 mg/dL High 5-21 [facility] Comment on above: Performed By: #### 1 [id number], 4593223, 8545211, 2989217 #### [facility] [address] [place] [address] Urea nitrogen/Creatinine [Mass ratio] 5 No Units Low 10-20 [facility] Comment on above: Performed By: #### 1 7799513, 1267282, 6774390, 1673044 #### [facility] [address] [place] [address] Anion gap [Moles/Vol] 22 mmol/L High 6-16 [facility] Comment on above: Performed By: #### 1 [id number], 8823213, 9793157, 0204766 #### [facility] [address] [facility] [place] [address] Calcium [Mass/Vol] 8.9 mg/dL Normal 8.9-11.1 [facility] Comment on above: Performed By: #### 1 3718923, 3297700, 1291157, 9452577 #### [facility] [address] [place] [address] Chloride [Moles/Vol] 96 mmol/L Low 101-111 [facility] Comment on above: Performed By: #### 1 7493532, 7509622, 1144747, 8142258 #### [facility] [address] [place] [address] CO2 [Moles/Vol] 21 mmol/L Normal 21-31 [facility] Comment on above: Performed By: #### 1 9300998, 7912802, 7318885, 5765812 #### [facility] [address] [place] [address] Glucose [Mass/Vol] 229 mg/dL High 55-199 [facility] Comment on above: Result Comment: If t his glucose result represents a fasting glucose, interpretation should refer to the following reference range: 55-99 mg/dL Performed By: #### 1 [id number], 7304118, 3590450, 7721574 #### [facility] [address] [place] [address] Potassium [Moles/Vol] 4.9 mmol/L Normal 3.5-5.3 [facility] Comment on above: Performed By: #### 1 0332396, 7163009, 3036735, 5870355 #### [facility] [address] [place] [address] Sodium [Moles/Vol] 134 mmol/L Low 135-145 [facility] Comment on above: Performed By: #### 1 2405352, 1572167, 7808024, 4305707 #### [facility] [address] [place] [address] Capillary Glucose POCon 06-12 Glucose [Mass/Vol] 253 mg/dL High 55-99 [facility] Comment on above: Performed By: #### 2 [id number] ####[facility] [address] [place] [address] Consent for Treatmenton 06-12 Consent for Treatment [id number]#1.00CD:127 Normal [facility] Interdisciplinary Note - Bang singon 07-02-2022 Interdisciplinary Note - Nursing Called and spoke with Dr. Agudelo- patient's painter ski edge regarding his lab values. Patient has not have dialysis since last Saturday06/27/22. Patient is not in any acute distress, does not appear fluid-overloaded, and denies shortness of breath, however physician contacted regarding patient's critical labs. Patient is to report to [facility] tomorrow morning at 6:30 am. Patient and family member at bedside aware and agree with plan. Normal [facility] Monitor Recordon 07-02-2022 Monitor Record [id number]#1.00CD:127 Normal [facility] Operative Reporton Operative Report SURGERY DATE: 2022 [...] complications. Greg Alarcon M.D. lr Dictated: 07/02/2022 [id number] Transcribed: 07/02/2022 Normal [facility] Comment on above: Result Comment: Elec tronically Signed By: Dorian FISH, Greg Lopez\.br\Date and Time Signed: 07/02/22 15:32 EDT eGFRon 07-02-2022 GFR/1.73 sq M.predicted among non-blacks MDRD (S/P/Bld) [Vol rate/Area] 3 mL/min/1.73 m2 Low >=59 [facility] Comment on above: Order Comment: Order added by Discern Expert. Result Comment: Psychologist Research Assistant jm kidney disease could be indicated at eGFR's of less than 60 mL/min/1.73m2. Kidney failure is indicated at less than 15 mL/min/1.73m2. Performed By: #### 1 [id number], 8362234, 7005519, 3975834 #### [facility] [address] [place] [address] Discharge Instructionson Discharge Instructions [id number]#[id number]:127 Normal [facility] BMPon 06-29-2022 Creatinine [Mass/Vol] 10.3 mg/dL Abnormal 0.5-1.3 [facility] Comment on above: Result Comment: Crit ical Result verified by repeat analysis\Critical Result S_CREA:10.30 Called to DOMINGO LANGE AT by NOEL ORNELAS And Read Back For Confirmation at: 06/29/2022 17:06:57 Performed By: #### 1 [id number], 5509928, 4235562, 8897264 #### [facility] [address] [place] [address] Urea nitrogen [Mass/Vol] 41 mg/dL High 5-21 [facility] Comment on above: Performed By: #### 1 0004007, 5583009, 2382374, 6961514 #### [facility] [address] [place] [address] Urea nitrogen/Creatinine [Mass ratio] 4 No Units Low 10-20 [facility] Comment on above: Performed By: #### 1 4472486, 6376958, 2149854, 6702736 #### [facility] [address] [place] [address] Anion gap [Moles/Vol] 16 mmol/L Normal 6-16 [facility] Comment on above: Performed By: #### 1 7197100, 9203452, 1918704, 9863456 #### [facility] [address] [place] [address] Calcium [Mass/Vol] 9.6 mg/dL Normal 8.9-11.1 [facility] Comment on above: Performed By: #### 1 6043471, 3567296, 4218138, 4863921 #### [facility] [address] [place] [address] Chloride [Moles/Vol] 98 mmol/L Low 101-111 [facility] Comment on above: Performed By: #### 1 9767364, 8985582, 8934549, 3040138 #### [facility] [address] [place] [address] CO2 [Moles/Vol] 25 mmol/L Normal 21-31 [facility] Comment on above: Performed By: #### 1 8175685, 2327136, 3735907, 9524878 #### [facility] [address] [place] [address] Glucose [Mass/Vol] 159 mg/dL Normal 55-199 [facility] Comment on above: Result Comment: If t his glucose result represents a fasting glucose, interpretation should refer to the following reference range: 55-99 mg/dL Performed By: #### 1 1885207, 5209403, 4359474, 4237671 #### [facility] [address] [place] [address] Potassium [Moles/Vol] 4.3 mmol/L Normal 3.5-5.3 [facility] Comment on above: Performed By: #### 1 0552228, 4214639, 1954082, 1484193 #### [facility] [address] [place] [address] Sodium [Moles/Vol] 135 mmol/L Normal 135-145 [facility] Comment on above: Performed By: #### 1 5197479, 5425567, 5349892, 0254013 #### [facility] [address] [place] [address] Consent for Treatmenton 06-11 Consent for Treatment [id number]#1.00CD:127 Normal [facility] ED Clinical Summaryon 2022 ED Clinical Summary (Inserted Image. Dejah ble to display) [address] [address] ED Clinical Summary Person Information Name: SETH MURPHY/[facility] Age: 66 Years : 1955 Sex: Male Language: [place]er PCP: Nav Alejo MD Marital Status: Visit [...] 06/29/2022 19:18:57 06/29/2022 19:18:57 06/29/2022 19:18:57 ADDRESS: [address] [place] [id number] [facility] DOC NOTES: MEDICAL INFORMATION: Prescriptions Given: [...] Follow up: With: Address: When: Greg Alarcon [address] [place], [place] [id number] Business () In 3 days 07/02/2022 Comments: Call the office of Dr. Alarcon upon opening on Saturday to arrange for permacath dialysis catheter placement on Saturday. With: Address: When: HILARIO NUNEZ [address] [place] [address], [facility] [address] [place] [id number] Business (1) In 3 days 07/02/2022 Comments: Call the office on Saturday and notify them of the issues with your fistula. Ask them to arrange dialysis for you on Saturday. Eat a low potassium diet. Limit your fluid intake. If you become short of breath or begin feeling unwell return to the ED immediately for reevaluation. With: Address: When: Nav Alejo [address] [facility], [facility] [address] [place] [phone] Business (1) In 3 days 07/02/2022 Comments: [...] DIAGNOSIS: Complication of AV dialysis fistula Normal [facility] ED Note-Physicianon 06-30-19 ED Note-Physician Basic Information Time Seen: Reji Azar DO 06/29/2022 15:56 Chief Complaint pt reports fistula in left arm is clotted off and not working. pt came from dialysis center in [place] History of Present Illness 66-year-old male to [...] Agudelo who is on-call for the patient's painter ski edge Dr. Nunez. He is okay with the [...] prescription medications Follow-up With When Contact Information Gerg Alarcon In 3 days 07/02/2022 EDT [address] [facility] [place] [address]- Business (1) Additional Instructions: Call the office of Dr. Alarcon upon opening on Saturday to arrange for permacath dialysis catheter placement on Saturday. HILARIO NUNEZ In 3 days 07/02/2022 EDT [address] [place] [address] [place] [address]- Business (1) Additional Instructions: Call the office on Saturday and notify them of the issues with your fistula. Ask them to arrange dialysis for you on Saturday. Eat a low potassium diet. Limit your fluid intake. If you become short of breath or begin feeling unwell return to the ED immediately for reevaluation. Nav Alejo In 3 days 07/02/2022 EDT [address] [place] [address]- Business (1) Additional Instructions: Call the office of your primary care doctor to arrange for follow-up within the above-stated timeframe. Follow-up with your primary care doctor about this ED visit. You should review your labs, imaging, and diagnoses from this ED visit with your primary care physician. There are occasionally non-emergent findings that requir (more content not included)... Normal [facility] Comment on above: Result Comment: Elec [...] these instructions at home: Medicines ? Take oblh-akr-ydvunbk and prescription medicines only as told by your health care provider. ? Ask your health care provider if the medicine prescribed to you can cause constipation. You may need to take these actions to prevent or treat constipation: ? Drink enough fluid to keep your urine pale yellow. ? Take xbmy-qrf-ohbypzn or prescription medicines. ? Eat foods that [...] water are not available, use hand supervisor alum plant. ? Change your dressing as told by [...] provider. Document Revised: 09/07/2020 Document Reviewed: 09/07/2020 [employer] Patient Education ? 2022 [employer]. Potassium Content of Foods Potassium is a mineral found in many foods and drinks. It can affect how the heart works, affect blood pressure, and keep fluids and electrolytes balanced in the body. It is important not to have too much potassium (hyperkalemia) or too little potassium (hypokalemia) in the body, especially in the blood. Potassium i (more content not included)... Normal [facility] ED Patient Summaryon 023 ED Patient Summary (Inserted Image. Dejah ble to display) [place] [id number] Patient Discharge Instructions Person Information Name: SETH MURPHY Age: 66 Years Arrival Date: 06/29/2022 15:44:02 Discharge Diagnosis: Complication of AV dialysis fistula Primary Care Physician: Nav Alejo MD Provider Information Primary Provider: Reji Azar DO Advanced Sponge Maker:None The exam and treatment you received in the Emergency Department were for an urgent problem and are not intended as complete care. It is important that you follow up with a doctor, nurse practitioner, or physician?s therapist's assistant for ongoing care. If your symptoms [...] Instructions: With: Address: When: Greg Alarcon [address] [place] [address] Business (1) In 3 days 07/02/2022 Comments: Call the office of Dr. Alarcon upon opening on Saturday to arrange for permacath dialysis catheter placement on Saturday. With: Address: When: HILARIO NUNEZ [address] [facility] [place] [address] Business (1) In 3 days 07/02/2022 Comments: Call the office on Saturday and notify them of the issues with your fistula. Ask them to arrange dialysis for you on Saturday. Eat a low potassium diet. Limit your fluid intake. If you become short of breath or begin feeling unwell return to the ED immediately for reevaluation. With: Address: When: Nav Alejo [facility] [facility], [place] [address] Business (1) In 3 days [...] opioids can be used to help relieve ozwmuwdq-go-ekxwxn pain and are often prescribed following a [...] Cognitive b (more content not included)... Normal [facility] AV Fistula/Ramsey 2022 AV Fistula/Graft Exam Date/Time: 06/29/2022 18:59 [...] of Fistula/Graft: left brachiocephalic Laterality: Left. Normal [facility] eGFRon 06-29-2022 GFR/1.73 sq M.predicted among non-blacks MDRD (S/P/Bld) [Vol rate/Area] 5 mL/min/1.73 m2 Low >=59 [facility] Comment on above: Order Comment: Order added by Discern Expert. Result Comment: Psychologist Research Assistant jm kidney disease could be indicated at eGFR's of less than 60 mL/min/1.73m2. Kidney failure is indicated at less than 15 mL/min/1.73m2. Performed By: #### 1 [id number], 0764796, 4334778, 2636593 #### [facility] [address] [place] [address] Progress Noteson 05-17-2022 Blueprint Clerk Authentication Interface Message Text EMERGENCY TRIAGE, TREAT AND TRANSPORT (ET3) DOCUMENTATION OF TELEHEALTH VISIT Date / Time: 05/16/20221754 Name: Dedrick Murphy : 1955 SSN: (Not on file) EMS Agency: [facility] [] Verbal consent obtained [x] [...] Completed by: Guicho Angelo DO Normal [facility] SYMPTOMATIC COVID-19 ANTIGEN on 05-09-2022 EUA Statement SEE BELOW Normal [facility] Comment on above: Result Comment: This test [...] sooner. Performed By: #### C VDAGS #### [facility] [address] [place] [address] Dr. Radha Edward SARS-CoV-2 (COVID-19) RNA IRENE+probe Ql (Unsp spec) Positive Abnormal NEGATIVE [facility] Comment on above: Performed By: #### C VDAGS #### [facility] [address] [place] [address] Dr. Radha Edward CHEMISTRYOrdered By: SYSTEM SYSTEM [...] by: NATHEN LUCIA Date: 2022-02-15 11:[address] [facility] CULTURE WOUNDon 01-15-2022 CULTURE WOUND Culture [...] Trimethoprim/Sulfamethoxaz ole <=20 S F Normal [facility] Comment on above: Performed By: #### W OUNDCX #### [facility] [address] [place] [address] Dr. Radha Edward Office Visit (Cardiology)on 01-11-2022 [...] He has a history of ASHD with POSTDOCTORAL RESEARCH FELLOW intervention of the LAD in April 2018 [...] Heparin (Porcine) in NaCl 1000-0.9 UT/500ML-% Intravenous Ymufawcd3494 units every dialysis loading dose Levothyroxine Sodium [...] Recorded: 11Jan2022 11:29AM Heart Rate80, L Radial Bbrcyjax22, RUE, Sitting Ykchirzjg70, RUE, Sitting Height5 ft 10 in Oairyx077 lb BMI Ntqmdflbgd17.71 kg/m2 BSA Calculated2.21 Tobacco Useb) No Falls [...] a) No falls within the last year -[facility] [address] DO Work Phone: Tobacco use status [facility] b) No [facility] [address] DO Work Phone: CBC AUTO DIFFon 08-28-2021 BASO # 0.0 103/ul Normal 0.0-0.1 [facility] Comment on above: Performed By: #### C BC #### [facility] [address] [place] [address] Dr. Radha Edward Basophils/100 WBC (Bld) 0.6 % Normal 0.2-2.0 [facility] Comment on above: Performed By: #### C BC #### [facility] [address] [place] [address] Dr. Radha Edward EO # 0.1 103/ul Normal 0.0-0.7 [facility] Comment on above: Performed By: #### C BC #### [facility] [address] [place] [address] Dr. Radha Edward Eosinophils/100 WBC (Bld) 1.7 % Normal 0.9-7.0 [facility] Comment on above: Performed By: #### C BC #### [facility] [address] [place] [address] Dr. Radha Edward Erythrocyte distribution width (RBC) [Ratio] 14.5 % Normal 11.0-15.0 [facility] Comment on above: Performed By: #### C BC #### [facility] [address] [place] [address] Dr. Radha Edward Hematocrit (Bld) [Volume fraction] 34.0 % Critically low 42.0-54.0 [facility] Comment on above: Performed By: #### C BC #### [facility] [address] [place] [address] [address] Radha Edward Hemoglobin (Bld) [Mass/Vol] 11.1 g/dL Critically low 14.0-18.0 [facility] Comment on above: Performed By: #### C BC #### [facility] [address] [place] [address] [address] Radha Edward IG # 0.02 10e3/ul Normal 0.00-0.03 [facility] Comment on above: Performed By: #### C BC #### [facility] [address] [place] [address] Dr. Radha Edward IG % 0.4 % Normal 0.0-0.5 [facility] Comment on above: Performed By: #### C BC #### [facility] [facility] [address] [place] [address] Dr. Radha Edward LYMPH # 1.0 103/ul Critically low 1.2-3.8 [facility] Comment on above: Performed By: #### C BC #### [facility] [address] [place] [address] Dr. Radha Edward Lymphocytes/100 WBC (Bld) 18.6 % Critically low 20.5-60.0 [facility] Comment on above: Performed By: #### C BC #### [facility] [address] [place] [address] Dr. Radha Edward MANUAL DIFF REQ NO Normal [facility] Comment on above: Performed By: #### C BC #### [facility] [address] [place] [address] Dr. Radha Edward MCH (RBC) [Entitic mass] 30.5 pg Normal 25.9-34.0 [facility] Comment on above: Performed By: #### C BC #### [facility] [address] [place] [address] Dr. Radha Edward MCHC (RBC) [Mass/Vol] 32.6 g/dL Normal 29.9-35.2 [facility] Comment on above: Performed By: #### C BC #### [facility] [address] [address] [address] Radha Edward MCV (RBC) [Entitic vol] 93.4 fL Normal 80.0-94.0 [facility] Comment on above: Performed By: #### C BC #### [facility] [address] [address] [address] Radha Edward MONO # 0.8 103/ul Normal 0.3-0.8 [facility] Comment on above: Performed By: #### C BC #### [facility] [address] [address] [address] Radha Edward Monocytes/100 WBC (Bld) 15.1 % Critically high 1.7-12.0 [facility] Comment on above: Performed By: #### C BC #### [facility] [address] [address] [address] Radha Edward NEUT # 3.5 103/ul Normal 1.4-6.5 [facility] Comment on above: Performed By: #### C BC #### [facility] [address] [address] [address] Radha Edward Neutrophils/100 WBC (Bld) 63.6 % Normal 43.0-75.0 [facility] Comment on above: Performed By: #### C BC #### [facility] [address] [address] [address] Radha Edward Platelet mean volume (Bld) [Entitic vol] 9.8 fL Normal 9.5-13.5 [facility] Comment on above: Performed By: #### C BC #### [facility] [address] [address] [address] Radha Edward PLT 156 103/ul Normal 150-450 [facility] Comment on above: Performed By: #### C BC #### [facility] [id number] Radha Edward RBC 3.64 106/ul Critically low 4.70-6.10 [facility] Comment on above: Performed By: #### C BC #### [facility] [address] [place] [address] Dr. Radha Edward WBC 5.4 103/ul Normal 4.0-11.0 [facility] Comment on above: Performed By: #### C BC #### [facility] [address] [place] [address] Dr. Radha Edward PROF 14(COMP METB)on 022 Albumin [Mass/Vol] 3.6 g/dL Normal 3.4-5.0 [facility] Comment on above: Performed By: #### C MP, TSH, HSTROPN #### [facility] [address] [place] [address] Dr. Radha Edward Albumin/Globulin [Mass ratio] 0.9 {ratio} Normal [facility] Comment on above: Performed By: #### C MP, TSH, HSTROPN #### [facility] [address] [place] [address] Dr. Radha Edward ALP [Catalytic activity/Vol] 135 U/L Critically high 46-116 [facility] Comment on above: Performed By: #### C MP, TSH, HSTROPN #### [facility] [address] [place] [address] Dr. Radha Edward ALT [Catalytic activity/Vol] 21 U/L Normal 16-63 [facility] Comment on above: Performed By: #### C MP, TSH, HSTROPN #### [facility] [address] [place] [address] Dr. Radha Edward Anion gap [Moles/Vol] 13.6 mmol/L Normal [facility] Comment on above: Performed By: #### C MP, TSH, HSTROPN #### [facility] [address] [place] [address] Dr. Radha Edward AST [Catalytic activity/Vol] 14 U/L Critically low 15-37 [facility] Comment on above: Performed By: #### C MP, TSH, HSTROPN #### [facility] [address] [place] [address] Dr. Radha Edward Bilirubin [Mass/Vol] 0.6 mg/dL Normal 0.2-1.0 [facility] Comment on above: Performed By: #### C MP, TSH, HSTROPN #### [facility] [address] [address] [address] Radha Edward Calcium [Mass/Vol] 9.1 mg/dL Normal 8.5-10.1 [facility] Comment on above: Performed By: #### C MP, TSH, HSTROPN #### [facility] [address] [address] [address] Radha Edward Chloride [Moles/Vol] 95 mmol/L Critically low 98-107 [facility] Comment on above: Performed By: #### C MP, TSH, HSTROPN #### [facility] [address] [place] [address] Dr. Radha Edward CO2 [Moles/Vol] 29.8 mmol/L Normal 21.0-32.0 [facility] Comment on above: Performed By: #### C MP, TSH, HSTROPN #### [facility] [address] [place] [address] Dr. Radha Edward Creatinine [Mass/Vol] 5.55 mg/dL Critically high 0.70-1.30 [facility] Comment on above: Performed By: #### C MP, TSH, HSTROPN #### [facility] [address] [place] [address] Dr. Radha Edward EGFR-AF NIUEAN 13 mL/min/1.73m2 Critically low >=60 [facility] Comment on above: Performed By: #### C MP, TSH, HSTROPN #### [facility] [address] [place] [address] Dr. Radha Edward EGFR-NON AF NIUEAN 10 mL/min/1.73m2 Critically low >=60 [facility] Comment on above: Performed By: #### C MP, TSH, HSTROPN #### [facility] [address] [address] [address] Radha Edward Globulin (S) [Mass/Vol] 3.9 g/dL Normal [facility] Comment on above: Performed By: #### C MP, TSH, HSTROPN #### [facility] [address] [address] [address] Radha Edward Glucose [Mass/Vol] 164 mg/dL Critically high 74-106 [facility] Comment on above: Performed By: #### C MP, TSH, HSTROPN #### [facility] [address] [address] [address] Radha Edward Potassium [Moles/Vol] 3.4 mmol/L Critically low 3.5-5.1 [facility] Comment on above: Performed By: #### C MP, TSH, HSTROPN #### [facility] [address] [place] [address] Dr. Radha Edward Protein [Mass/Vol] 7.5 g/dL Normal 6.4-8.2 [facility] Comment on above: Performed By: #### C MP, TSH, HSTROPN #### [facility] [address] [place] [address] Dr. Radha Edward Sodium [Moles/Vol] 135 mmol/L Critically low 136-145 [facility] Comment on above: Performed By: #### C MP, TSH, HSTROPN #### [facility] [address] [place] [address] Dr. Radha Edward Urea nitrogen [Mass/Vol] 13.0 mg/dL Normal 7.0-18.0 [facility] Comment on above: Performed By: #### C MP, TSH, HSTROPN #### [facility] [address] [place] [address] Dr. Radha Edward Urea nitrogen/Creatinine [Mass ratio] 2.3 mg/mg Normal [facility] Comment on above: Performed By: #### C MP, TSH, HSTROPN #### [facility] [address] [place] [address] Dr. Radha Edward TROPONIN, HIGH SENSITIVITYon 08-28-2021 HSTROP 11.8 pg/mL Normal 4.0-76.1 [facility] Comment on above: Result Comment: CUT- OFF POINTS HAVE BEEN ESTABLISHED BASED ON THE FOURTH UNIVERSAL DEFINITIONS OF MYOCARDIAL INFARCTION. THE UPPER REFERENCE LIMIT (URL) OF TROPONIN, DEFINED THE 99TH PERCENTILE OF cTnI DISTRIBUTION IN A REFERENCE POPULATION, HAS BEEN CONFIRMED THE DECISION THRESHOLD FOR SD DIAGNOSIS. Performed By: #### C MP, TSH, HSTROPN #### [facility] [address] [place], [place] [address] Dr. Radha Edward TSHon 08-28-2021 TSH 0.749 uIU/mL Normal 0.358-3.[address] [facility] Comment on above: Performed By: #### C MP, TSH, HSTROPN #### [facility] [address] [place], [place] [address] Dr. Radha Edward XR CHEST 1 Von 08-28-2021 XR CHEST 1 V CHEST X-RAY, 1 VIEW HISTORY: Bradycardia. Chest pain. COMPARISON: 09/01/2019. FINDINGS: The cardiac silhouette is enlarged. Left hemidiaphragm is elevated. The lungs are grossly clear. There are no pleural effusions. There is no pneumothorax. IMPRESSION: No evidence of acute cardiopulmonary disease. Electronically authenticated by: CHRISTIANNE MELVIN Date: 2021-08-28 18:59 Normal [facility] Office Visit (Cardiology)on 07-13-2021 Follow-up visit [...] infection with prolonged intubation and hospitalization in [place] with multiorgan failure details of which have [...] Heparin (Porcine) in NaCl 1000-0.9 UT/500ML-% Intravenous [id number] unitts every dialysis loading dose hydrALAZINE HCl [...] Recorded: 13Jul2021 11:47AM Heart Rate66, R Radial Qbpjbnem236, RUE, Sitting Uxntgnfpq11, RUE, Sitting Height5 ft 10 in Stfhcx937 lb BMI Ibvdlwojbn74.14 kg/m2 BSA Calculated2.19 Tobacco Useb) No PHQ-2 [...] Jul 13 2021 12:27PM EST (Author) Normal [employer] Tobacco Screening.on 022 Adult depression screening assessment No [facility] [employer] [place] [address] DO Work Phone: Fall risk assessment a) No falls within the last year [facility] [place] [address] DO Work Phone: Tobacco use status CPHS b) No [facility] [place] [address] DO Work Phone: Echocardiogramon 10-20-[address], [address], [place] [address] TRANSTHORACIC ECHOCARDIOGRAM REPORT Patient Name: SETH Bowers Physician: [id number] Alfredo Saravia DO Study Date: 10/20/2020 Referring [id number] SETH YING Physician: MRN/PID: [id number] PCP: Nav Alejo Accession/Order#: [id number] [facility] Heart Location: [place] Date of : 1955 Fellow: Gender: M Nurse: Admit Date: Services Clerk: Deena Adams RDCS, RVT Height: 177.80 cm CC Report to: Marina Agudelo Weight: 103.42 kg Study Type: Echocardiogram BSA: 2.21 m2 Diagnosis/ICD: 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 Author Type: Physician Marketing Programs Specialist Type: Progress Notes Filed: 08/28/2019 10:29 AM Note Text: [facility] NOTE NAME: CHRISTY MURPHY NO.: [id number] DATE OF SERVICE: 08/27/[address] [facility] DATE OF : 1955 CHIEF COMPLAINT: Followup for discharge. SUBJECTIVE FINDINGS: The patient was seen in his room at [facility] lying in bed. I remained greater than [...] DICTATED BY: Diane Lerner PA-C PG/Meagan JOB# [id number] cc:[facility] PROGRESSon 08-07-2019 PROGRESS HNO ID: [id number] Author: Diane Lerner (Pa) Service: ? Author Type: Physician Marketing Programs Specialist Type: Progress Notes Filed: 08/11/2019 6:39 AM Note Text: [facility] NOTE NAME: CHRISTY MURPHY NO.: [id number] DATE OF SERVICE: 08/07/2019 [facility] DATE OF : 1955 DETENTION CHART VISIT NOTE CHIEF COMPLAINT: Followup for end-stage renal disease, weakness, and other medical issues. SUBJECTIVE FINDINGS: The patient was seen in his room at [facility] lying in bed. I remained greater than [...] any bowel issues. MEDICATIONS: Reviewed in the penitentiary record. CODE STATUS: Full code. PHYSICAL EXAMINATION: [...] DICTATED BY: Diane Lerner PA-C PG/Acjanis JOB# [id number] cc:[facility] PROGRESSon 07-29-2019 PROGRESS HNO ID: [id number] Author: Diane Lerner (Pa) Service: ? Author Type: Physician Marketing Programs Specialist Type: Progress Notes Filed: 07/30/2019 12:39 PM Note Text: [facility] NOTE NAME: CHRISTY MURPHY NO.: [id number] DATE OF SERVICE: 07/29/[address] [facility] DATE OF : 1955 CHIEF COMPLAINT: Follow up for end-stage renal disease, weakness, and other medical issues. SUBJECTIVE FINDINGS: The patient was seen in his room at [facility] sitting up in his wheelchair. I remained [...] SYSTEMS: See above. MEDICATIONS: Reviewed in the penitentiary record. CODE STATUS: Full code. PHYSICAL EXAMINATION: [...] DICTATED BY: Diane Lerner PA-C PG/Meagan JOB# [id number] cc:[facility] PROGRESSon 07-27-2019 PROGRESS HNO ID: [id number] Author: Saad Ahumada Service: ? Author Type: Physician Type: Progress Notes Filed: 07/29/2019 5:29 PM Note Text: [facility] NOTE NAME: CHRISTY MURPHY NO.: [id number] DATE OF SERVICE: 07/27/2019 [facility] DATE [...] family. DICTATED BY: MD FLAKITO White/Meagan JOB# [id number] cc:[facility] PROGRESSon 07-16-2019 PROGRESS HNO ID: [id number] Author: Diane Chacon) Abdullahi Service: ? Author Type: Physician Marketing Programs Specialist Type: Progress Notes Filed: 07/17/2019 11:59 AM Note Text: [facility] NOTE NAME: CHRISTY MURPHY NO.: [id number] DATE OF SERVICE: 07/16/[address] [facility] DATE OF : 1955 DETENTION CHART VISIT NOTE CHIEF COMPLAINT: Followup for potential discharge. SUBJECTIVE FINDINGS: The patient was seen in his room at [facility] sitting up in his wheelchair. I remained [...] Have asked our staff to contact his customer retention representative's office to clarify his aspirin dose. 3. [...] DICTATED BY: Diane Lerner PA-C PG/Meagan JOB# [id number] cc:[facility] PROGRESSon 07-13-2019 PROGRESS HNO ID: [id number] Author: Diane Lerner (Pa) Service: ? Author Type: Physician Marketing Programs Specialist Type: Progress Notes Filed: 07/14/2019 2:18 PM Note Text: [facility] NOTE NAME: CHRISTY MURPHY NO.: [id number] DATE OF SERVICE: 07/13/2019 [facility] DATE OF : 1955 DETENTION CHART VISIT NOTE CHIEF COMPLAINT: Skilled followup visit for end-stage renal disease, coronary artery disease, and other medical issues. SUBJECTIVE FINDINGS: The patient was seen in his room at [facility] for a skilled followup visit. I remained [...] SYSTEMS: See above. MEDICATIONS: Reviewed in the penitentiary record. CODE STATUS: Full code. PHYSICAL EXAMINATION: [...] We will ask staff to contact his customer retention representative's office to clarify the aspirin dose. 3. [...] DICTATED BY: Diane Lerner PA-C PG/Meagan JOB# [id number] cc:[facility] PROGRESSon 07-09-2019 PROGRESS HNO ID: [id number] Author: Diane Lerner (Pa) Service: ? Author Type: Physician Marketing Programs Specialist Type: Progress Notes Filed: 07/13/2019 10:19 AM Note Text: [facility] NOTE NAME: SETH MURPHYJOSE NO.: [id number] DATE OF SERVICE: 07/09/[address] [facility] DATE OF : 1955 CHIEF COMPLAINT: Skilled followup visit for coronary artery disease, renal disease, and other medical issues. SUBJECTIVE FINDINGS: The patient was seen in his room at [facility] for skilled followup visit. I remained greater than 6 feet away from him for the evaluation due to the COVID-19 pandemic. The patient had been refusing heparin as he related that this was uncomfortable and that he was bleeding after administration. He is on longstanding Effient as ordered by Cardiology and has a history of stents. He follows with Dr. Ying in [place]. In addition, his current aspirin dose is [...] Please see above. MEDICATIONS: Reviewed in the penitentiary record. CODE STATUS: Full code. PHYSICAL EXAMINATION: [...] DICTATED BY: Diane Lerner PA-C PG/Meagan JOB# [id number] cc:[facility] PROGRESSon 07-01-2019 PROGRESS HNO ID: [id number] Author: Diane Lerner (Pa) Service: ? Author Type: Physician Marketing Programs Specialist Type: Progress Notes Filed: 07/03/2019 7:47 AM Note Text: [facility] NOTE NAME: CHRISTY MURPHY NO.: [id number] DATE OF SERVICE: 07/01/[address] [facility] DATE OF : 1955 DETENTION CHART VISIT NOTE CHIEF COMPLAINT: Venous stasis of the legs, weakness, and other medical issues. SUBJECTIVE FINDINGS: The patient was seen in his room at [facility] for skilled followup visit. I remained greater [...] SYSTEMS: See above. MEDICATIONS: Reviewed in the penitentiary record. CODE STATUS: Full code. PHYSICAL EXAMINATION: [...] DICTATED BY: Diane Lerner PA-C PG/Meagan JOB# [id number] cc:[facility] PROGRESSon 06-26-2019 PROGRESS HNO ID: [id number] Author: Diane Lerner (Pa) Service: ? Author Type: Physician Marketing Programs Specialist Type: Progress Notes Filed: 06/29/2019 12:17 PM Note Text: [facility] NOTE NAME: CHRISTY MURPHY NO.: [id number] DATE OF SERVICE: 06/26/[address] [facility] DATE OF : 1955 DETENTION CHART VISIT NOTE CHIEF COMPLAINT: Followup for renal disease, type 2 diabetes mellitus, and other medical issues. SUBJECTIVE FINDINGS: The patient was seen in his room sitting up in his wheelchair at [facility]. I remained greater than 6 feet away [...] SYSTEMS: See above. MEDICATIONS: Reviewed in the penitentiary record. CODE STATUS: Full code. PHYSICAL EXAMINATION: [...] DICTATED BY: Diane Lerner PA-C PG/Meagan JOB# [id number] cc:[facility] PROGRESSon 06-18-2019 PROGRESS HNO ID: [id number] Author: Diane Lerner (Pa) Service: ? Author Type: Physician Marketing Programs Specialist Type: Progress Notes Filed: 06/19/2019 1:37 PM Note Text: [facility] NOTE NAME: CHRISTY MURPHY NO.: [id number] DATE OF SERVICE: 06/18/2019 [facility] DATE OF : 1955 DETENTION CHART VISIT NOTE CHIEF COMPLAINT: Follow up for end-stage renal disease, type 2 diabetes mellitus, weakness, and other medical issues. SUBJECTIVE FINDINGS: The patient was seen in his room sitting up in his wheelchair at [facility]. I remained greater than 6 feet away [...] lift for transfers. MEDICATIONS: Reviewed in the penitentiary record. CODE STATUS: Full code. PHYSICAL EXAMINATION: [...] occupational therapy. DICTATED BY: MARIANN Waterman JOB# [id number] cc:[facility] PROGRESSon 06-16-2019 PROGRESS HNO ID: [id number] Author: Diane Chacon) Abdullahi Service: ? Author Type: Physician Marketing Programs Specialist Type: Progress Notes Filed: 06/17/2019 3:57 PM Note Text: [facility] NOTE NAME: CHRISTY MURPHY NO.: [id number] DATE OF SERVICE: 06/16/[address] [facility] DATE OF : 1955 CHIEF COMPLAINT: Skilled followup visit for type 2 diabetes mellitus, renal disease, and other medical issues. SUBJECTIVE FINDINGS: The patient was seen in his room lying in bed at [facility]. I remained greater than 6 feet away [...] Please see above. MEDICATIONS: Reviewed in the penitentiary record. CODE STATUS: Full code. PHYSICAL EXAMINATION: Temperature 98.2, pulse 75, respirations 16, BP 108/55, pulse oximetry 96%. Examination revealed an obese, igbtia-nzeg-vxfrvirrg male lying in bed. He was in [...] DICTATED BY: Diane Lerner PA-C PG/Meagan JOB# [id number] cc:[facility] PROGRESSon 06-15-2019 PROGRESS HNO ID: [id number] Author: Saad Ahumada Service: ? Author Type: Physician Type: Progress Notes Filed: 06/18/2019 4:17 PM Note Text: [facility] NOTE NAME: SETH MURPHYJOSE NO.: [id number] DATE OF SERVICE: 06/15/2019 [facility] DATE OF : 1955 NEW PATIENT HISTORY AND PHYSICAL HISTORY OF PRESENT ILLNESS: The patient is a 63-year-old male who was admitted to us from [facility] with the diagnosis of acute hypoxemic [...] hospital with fever and increasing malaise. At [facility], he was treated for congestive heart failure exacerbation and bacterial pneumonia with antibiotics. However, his condition worsened requiring intubation, after which he was transferred to [facility] Intensive Care Unit where he [...] possible. DICTATED BY: MD FLAKITO White/Meagan JOB# [id number] cc:[facility] Operative Reporton 0 Operative Report MR#: [id number] S [facility] Pt. Name: Seth Murphy Room [...] patient was consented and brought to the tag and label cutter. The patient was placed in supine position. [...] and the tubing of the PermCath size 14.5-Maldivian x 24 cm was tunneled starting with [...] Amaro MD Date Trans: 06/04/2019 01:35 P/mmo [id number] cc: Nav Alejo M.D. [address] [facility] [id number] [facility] Vital Signs Date Time Vital Sign Value Performing Clinician Facility 09-02-2023 16:25-0400 Respiratory rate 18 /min MD Nav Alejo Work Phone: [facility] 09-02-2023 15:29-0400 Body temperature 98.4 [degF] MD Nav Alejo Work Phone: [facility] 09-02-2023 15:29-0400 Diastolic blood pressure 80 mm[Hg] MD Nav Alejo Work Phone: [facility] 09-02-2023 15:29-0400 Heart rate 61 /min MD Nav Alejo Work Phone: [facility] 09-02-2023 15:29-0400 SaO2% (BldA) [Mass fraction] 96 % MD Nav Alejo Work Phone: [facility] 09-02-2023 15:29-0400 Systolic blood pressure 135 mm[Hg] MD Nav Alejo Work Phone: [facility] 09-02-2023 05:28-0400 Body weight 100.1 kg MD Nav Alejo Work Phone: [facility] 08-29-2023 13:56-0400 Body height 180.34 cm MD Nav Alejo Work Phone: [facility] 06-26-2023 14:04-0400 Body temperature 98.8 [degF] MD Nav Alejo Work Phone: [facility] 06-26-2023 14:04-0400 Diastolic blood pressure 72 mm[Hg] MD Nav Alejo Work Phone: [facility] 06-26-2023 14:04-0400 Respiratory rate 18 /min MD Nav Alejo Work Phone: [facility] 06-26-2023 14:04-0400 SaO2% (BldA) [Mass fraction] 96 % MD Nav Alejo Work Phone: [facility] 06-26-2023 14:04-0400 Systolic blood pressure 122 mm[Hg] MD Nav Alejo Work Phone: [facility] 06-26-2023 13:55-0400 Heart rate 42 /min MD Nav Alejo Work Phone: [facility] [facility] 06-26-2023 05:53-0400 Body weight 97.5 kg MD Nav Alejo Work Phone: [facility] 06-25-2023 12:27-0400 Inhaled oxygen flow rate 8 L/min MD Nav Alejo Work Phone: [facility] 06-25-2023 10:25-0400 Body height 177.8 cm MD Nav Alejo Work Phone: [facility] 06-25-2023 10:25-0400 Body mass index (BMI) [Ratio] 29.5 kg/m2 MD Nav Alejo Work Phone: [facility] 06-21-2023 21:58-0400 Body temperature 99.9 [degF] MD Nav Alejo Work Phone: [facility] 06-21-2023 21:58-0400 Diastolic blood pressure 52 mm[Hg] MD Nav Alejo Work Phone: [facility] 06-21-2023 21:58-0400 Heart rate 84 /min MD Nav Alejo Work Phone: [facility] 06-21-2023 21:58-0400 Respiratory rate 16 /min MD Nav Alejo Work Phone: [facility] 06-21-2023 21:58-0400 SaO2% (BldA) [Mass fraction] 100 % MD Nav Alejo Work Phone: [facility] 06-21-2023 21:58-0400 Systolic blood pressure 100 mm[Hg] MD Nav Alejo Work Phone: [facility] 06-21-2023 18:28-0400 Body height 177.8 cm MD Nav Alejo Work Phone: [facility] 06-21-2023 18:28-0400 Body weight 92.6 kg MD Nav Alejo Work Phone: [facility] 05-09-2023 13:12-0400 Body height 177.8 cm MD Nav Alejo Work Phone: [facility] 05-09-2023 13:12-0400 Body mass index (BMI) [Ratio] 36.4 kg/m2 MD Nav Alejo Work Phone: [facility] 05-09-2023 13:12-0400 Body temperature 97.3 [degF] MD Nav Alejo Work Phone: [facility] 05-09-2023 13:12-0400 Body weight 115.21 kg MD Nav Alejo Work Phone: [facility] 05-09-2023 13:12-0400 Diastolic blood pressure 69 mm[Hg] MD Nav Alejo Work Phone: [facility] 05-09-2023 13:12-0400 Heart rate 69 /min MD Nav Alejo Work Phone: [facility] 05-09-2023 13:12-0400 Systolic blood pressure 98 mm[Hg] MD Nav Alejo Work Phone: [facility] 04-16-2023 08:21-0500 Body temperature 98.3 [degF] MD Nav Alejo Work Phone: [facility] 04-16-2023 08:21-0500 Diastolic blood pressure 71 mm[Hg] MD Nav Alejo Work Phone: [facility] 04-16-2023 08:21-0500 Heart rate 85 /min MD Nav Alejo Work Phone: [facility] 04-16-2023 08:21-0500 Respiratory rate 18 /min MD Nav Alejo Work Phone: [facility] 04-16-2023 08:21-0500 SaO2% (BldA) [Mass fraction] 96 % MD Nav Alejo Work Phone: [facility] 04-16-2023 08:21-0500 Systolic blood pressure 135 mm[Hg] MD Nav Alejo Work Phone: [facility] 04-16-2023 06:00-0500 Body weight 115.6 kg MD Nav Alejo Work Phone: [facility] 04-15-2023 15:06-0500 Body height 177.8 cm MD Nav Alejo Work Phone: [facility] 01-31-2023 09:47-0500 Body height 177.8 cm Seth Ying DO Work Phone: [facility] 01-31-2023 09:47-0500 Body mass index (BMI) [Ratio] 29.41 kg/m2 Seth Ying DO Work Phone: [facility] 01-31-2023 09:47-0500 Body weight 92.99 kg Seth Ying DO Work Phone: [facility] 01-31-2023 09:47-0500 Diastolic blood pressure 62 mm[Hg] Seth Ying DO Work Phone: [facility] 01-31-2023 09:47-0500 Heart rate 76 /min Seth Ying DO Work Phone: [facility] 01-31-2023 09:47-0500 Systolic blood pressure 122 mm[Hg] Seth Ying DO Work Phone: [facility] 08-09-2022 14:15-0400 Body height 180.34 cm Alfredo Acosta Other [facility] Other 08-09-2022 14:15-0400 Body mass index (BMI) [Ratio] 28.73 kg/m2 Alfredo Acosta Other [facility] Other 08-09-2022 14:15-0400 Body temperature 97.3 [degF] Alfredo Acosta Other [facility] Other 08-09-2022 14:15-0400 Body weight 93.44 kg Alfredo Acosta Other [facility] Other 08-09-2022 14:15-0400 Diastolic blood pressure 62 mm[Hg] Alfredo Acosta Other [facility] Other 08-09-2022 14:15-0400 Systolic blood pressure 99 mm[Hg] Alfredo Acosta Other [facility] Other 07-30-2022 09:03-0400 Blood Pressure Location Greg Alarcon [facility] 07-30-2022 09:03-0400 Diastolic blood pressure 60 mm[Hg] Greg Alarcon [facility] 07-30-2022 09:03-0400 Heart rate 77 /min Greg Alarcon [facility] 07-30-2022 09:03-0400 SaO2% (BldA) [Mass fraction] 98 % Greg Alarcon [facility] 07-30-2022 09:03-0400 Systolic blood pressure 110 mm[Hg] Greg Alarcon [facility] 07-12-2022 13:24-0400 Blood Pressure Location Greg Alarcon [facility] 07-12-2022 13:24-0400 Diastolic blood pressure 62 mm[Hg] Greg Alarcon [facility] 07-12-2022 13:24-0400 Heart rate 94 /min Greg Alarcon [facility] 07-12-2022 13:24-0400 SaO2% (BldA) [Mass fraction] 97 % Greg Alarcon [facility] 07-12-2022 13:24-0400 Systolic blood pressure 94 mm[Hg] Greg Alarcon [facility] 07-09-2022 19:00-0400 Diastolic blood pressure 65 mm[Hg] [facility] 07-09-2022 19:00-0400 Heart rate 74 /min [facility] 07-09-2022 19:00-0400 Mean blood pressure 80 mm[Hg] [facility] 07-09-2022 19:00-0400 Respiratory rate 17 /min [facility] 07-09-2022 19:00-0400 Systolic blood pressure 110 mm[Hg] [facility] 07-09-2022 18:30-0400 Heart rate 75 /min [facility] 07-09-2022 18:30-0400 Respiratory rate 23 /min [facility] 07-09-2022 18:00-0400 Diastolic blood pressure 60 mm[Hg] [facility] 07-09-2022 18:00-0400 Heart rate 79 /min [facility] 07-09-2022 18:00-0400 Mean blood pressure 73 mm[Hg] [facility] 07-09-2022 18:00-0400 Respiratory rate 11 /min [facility] 07-09-2022 18:00-0400 SaO2% (BldA) [Mass fraction] 96 % [facility] 07-09-2022 18:00-0400 Systolic blood pressure 98 mm[Hg] [facility] 07-09-2022 17:30-0400 Diastolic blood pressure 55 mm[Hg] [facility] 07-09-2022 17:30-0400 Mean blood pressure 67 mm[Hg] [facility] 07-09-2022 17:30-0400 SaO2% (BldA) [Mass fraction] 98 % [facility] 07-09-2022 17:30-0400 Systolic blood pressure 90 mm[Hg] [facility] 07-09-2022 17:25-0400 Body temperature 98.06 [degF] [facility] 07-09-2022 17:25-0400 Heart rate 95 /min [facility] 07-09-2022 17:25-0400 Respiratory rate 16 /min [facility] 07-09-2022 17:25-0400 SaO2% (BldA) [Mass fraction] 98 % [facility] 03-15-2022 11:05-0500 Blood Pressure Location Greg Dorian [facility] 03-15-2022 11:05-0500 Diastolic blood pressure 50 mm[Hg] Greg Alarcon [facility] 03-15-2022 11:05-0500 Heart rate 75 /min Luisanakeenan Alarcon [facility] 03-15-2022 11:05-0500 SaO2% (BldA) [Mass fraction] 98 % [facility] 03-15-2022 11:05-0500 Systolic blood pressure 90 mm[Hg] Greg Alarcon [facility] 01-11-2022 11:29-0500 Body height 177.8 cm Nav M Hoy Work Phone: [facility] DO Work Phone: 01-11-2022 11:29-0500 Body mass index (BMI) [Ratio] 32.71 kg/m2 Nav M Hoy Work Phone: [facility] DO Work Phone: 01-11-2022 11:29-0500 Body surface area Derived from formula 2.21 m2 Nav M Hoy Work Phone: [facility] DO Work Phone: 01-11-2022 11:29-0500 Body weight 103.42 kg Nav M Hoy Work Phone: [facility] DO Work Phone: 01-11-2022 11:29-0500 Diastolic blood pressure 60 mm[Hg] Nav M Hoy Work Phone: [facility] DO Work Phone: 01-11-2022 11:29-0500 Heart rate 80 /min Nav M Hoy Work Phone: [facility] DO Work Phone: 01-11-2022 11:29-0500 Systolic blood pressure 98 mm[Hg] Nav M Hoy Work Phone: [facility] DO Work Phone: 11-02-2021 12:32-0400 Blood Pressure Location Greg Dorian [facility] 11-02-2021 12:32-0400 Body temperature 97.7 [degF] Greg Alarcon [facility] 11-02-2021 12:32-0400 Diastolic blood pressure 63 mm[Hg] Greg Alarcon [facility] 11-02-2021 12:32-0400 Heart rate 72 /min Greg Dorian [facility] 11-02-2021 12:32-0400 Respiratory rate 16 /min Greg Harveyan [facility] 11-02-2021 12:32-0400 SaO2% (BldA) [Mass fraction] 96 % Greg Harveyan [facility] 11-02-2021 12:32-0400 Systolic blood pressure 105 mm[Hg] Greg Dorian [facility] 10-26-2021 14:53-0400 Blood Pressure Location Greg Alarcon [facility] 10-26-2021 14:53-0400 Diastolic blood pressure 66 mm[Hg] Greg Alarcon [facility] 10-26-2021 14:53-0400 Heart rate 82 /min Greg Harveyan [facility] 10-26-2021 14:53-0400 SaO2% (BldA) [Mass fraction] 97 % Greg Alarcon [facility] 10-26-2021 14:53-0400 Systolic blood pressure 107 mm[Hg] Greg Harveyan [facility] 07-13-2021 11:47-0400 Body height 177.8 cm Nav Falcon hyaquy Work Phone: [facility] 250 DO Work Phone: 07-13-2021 11:47-0400 Body mass index (BMI) [Ratio] 32.14 kg/m2 Nav Falcon hyaquy Work Phone: [facility] [employer] 250 DO Work Phone: 07-13-2021 11:47-0400 Body surface area Derived from formula 2.19 m2 aNv Falcon Hoy Work Phone: [facility] DO Work Phone: 07-13-2021 11:47-0400 Body weight 101.61 kg Nav Ezekiel Hoy Work Phone: [facility] DO Work Phone: 07-13-2021 11:47-0400 Diastolic blood pressure 76 mm[Hg] Nav Falcon Hoy Work Phone: [facility] DO Work Phone: 07-13-2021 11:47-0400 Heart rate 66 /min Nav Falcon Hoy Work Phone: [facility] DO Work Phone: 07-13-2021 11:47-0400 Systolic blood pressure 112 mm[Hg] Nav Falcon Hoy Work Phone: [facility] DO Work Phone: Encounters Encounter Date Encounter Type Care Provider Facility Start: 09-02-2023 Non-patient / Non-visit MD Adolfo Alejo Work Phone: [facility] Nephrology Work Phone: Start: 08-30-2023 Non-patient / Non-visit MD Adolfo Alejo Work Phone: [facility] Work Phone: Start: 08-29-2023 End: 08-29-2023 ambulatory ROMEO POP Not Available Start: 08-27-2023 End: 08-27-2023 ambulatory ROMEO POP Not Available Start: 08-26-2023 Non-patient / Non-visit MD Adolfo Alejo Work Phone: [facility] Work Phone: Start: 08-26-2023 Non-patient / Non-visit MD Adolfo Alejo Work Phone: [facility] Infectious Disease Work Phone: Start: 08-25-2023 End: 09-02-2023 Evaluation and management of inpatient MD Nav Alejo Work Phone: [facility] Work Phone: Start: 08-05-2023 Non-patient / Non-visit MD Adolfo Alejo Work Phone: [facility] Work Phone: Start: 08-01-2023 End: 08-01-2023 ambulatory FELISA H WIN Not Available Start: 07-16-2023 End: 07-16-2023 ambulatory FELISA H WIN Not Available Start: 07-08-2023 Non-patient / Non-visit MD Adolfo Alejo Work Phone: [facility] Work Phone: Start: 07-04-2023 End: 07-04-2023 ambulatory FELISA H WIN Not Available Start: 06-24-2023 End: 06-25-2023 Non-patient / Non-visit MD Nav Alejo Work Phone: [facility] Infectious Disease Work Phone: Start: 06-22-2023 End: 06-26-2023 Non-patient / Non-visit MD Nav Alejo Work Phone: [facility] Nephrology Work Phone: Start: 06-21-2023 End: 06-26-2023 Evaluation and management of inpatient MD Nav Alejo Work Phone: [facility] [place] [facility] Work Phone: Start: 06-18-2023 End: 06-19-2023 ambulatory Greg Alarcon Facility:[facility] Start: 06-18-2023 End: 06-18-2023 Patient encounter procedure Greg Alarcon [facility] Start: 06-05-2023 Non-patient / Non-visit MD Adolfo Alejo Work Phone: [facility] Work Phone: Start: 05-27-2023 End: 05-28-2023 ambulatory Greg Alarcon Facility:[facility] Start: 05-27-2023 End: 05-27-2023 Patient encounter procedure Greg Alarcon [facility] Start: 05-09-2023 End: 05-09-2023 ambulatory MD Nav Alejo Work Phone: [facility] Work Phone: Start: 05-09-2023 End: 05-09-2023 Patient encounter procedure MD Nav Alejo Work Phone: [facility] Infectious Disease Work Phone: Start: 05-05-2023 Non-patient / Non-visit MD Adolfo Alejo Work Phone: [facility] Work Phone: Start: 04-23-2023 Non-patient / Non-visit MD Adolfo Alejo Work Phone: [facility] Work Phone: Start: 04-10-2023 Non-patient / Non-visit MD Adolfo Alejo Work Phone: [facility] Vascular Surgery Work Phone: Start: 04-10-2023 Non-patient / Non-visit MD Adolfo Alejo Work Phone: [facility] Nephrology Work Phone: Start: 04-10-2023 Non-patient / Non-visit MD Adolfo Alejo Work Phone: [facility] Infectious Disease Work Phone: Start: 04-09-2023 Non-patient / Non-visit MD Adolfo Alejo Work Phone: [facility] Med Out[facility] Work Phone: Start: 04-09-2023 End: 04-16-2023 Evaluation and management of inpatient MD Nav Alejo Work Phone: [facility] [place] [facility] Work Phone: Start: 04-06-2023 Non-patient / Non-visit MD Adolfo Alejo Work Phone: [facility] Work Phone: Start: 03-15-2023 ambulatory [facility] Start: 03-15-2023 End: 03-16-2023 ambulatory [facility] Start: 02-06-2023 ambulatory [facility] Start: 01-31-2023 End: 01-31-2023 ambulatory [facility] Ambulatory Start: 01-31-2023 End: 01-31-2023 Office outpatient visit 15 minutes [facility] DO Work Phone: [facility] Comment on above: Arteriosclerotic hea rt disease; S/P PTCA (percutaneous transluminal coronary angioplasty); ESRD (end stage renal disease) on dialysis ([facility]); Diabetes mellitus of other type without complication, unspecified whether terminal carman insulin use ([facility]); Essential hypertension; Hyperlipidemia, unspecified hyperlipidemia type; Never smoked any substance Start: 01-18-2023 Encounter for other preprocedural examination [facility] Start: 01-18-2023 End: 01-18-2023 [facility] Start: 01-16-2023 Encounter for other preprocedural examination [facility] Start: 01-15-2023 End: 01-15-2023 ambulatory GREG ALARCON [facility] Start: 01-09-2023 End: 01-10-2023 ambulatory ROSANNE [facility] Start: 10-16-2022 ambulatory ROSANNE [facility] Start: 10-02-2022 End: 10-02-2022 ambulatory GREG ALARCON [facility] Start: 08-16-2022 End: 08-17-2022 ambulatory Greg HerminiaElodia Alarcon Facility:[facility] Start: 08-16-2022 End: 08-16-2022 Patient encounter procedure Greg HerminiaElodia Alarcon [facility] Start: 08-15-2022 Rx Renewal Nav Alejo Work Phone: [facility] DO Work Phone: Start: 08-09-2022 End: 08-09-2022 ambulatory Alfredo Acosta Other [facility] Other Start: 08-09-2022 Office outpatient vi sit 25 minutes Alfredo Acosta [facility] Infectious Disease Start: 07-30-2022 End: 07-31-2022 ambulatory Greg HerminiaElodia Alarcon Facility:[facility] Start: 07-30-2022 End: 07-30-2022 Patient encounter procedure Luisanakeenan HopeElodia Dorian [facility] Start: 07-18-[address] Nav Alejo Facility:[id number] Start: 07-12-2022 End: 07-20-2022 Evaluation and management of inpatient Fuentes Rodriguez Facility:[facility] Start: 07-12-2022 End: 07-13-2022 ambulatory Greg Alarcon Facility:[facility] Start: 07-12-2022 End: 07-17-2022 Pre-admission assessment Greg Alarcon [facility] Start: 07-12-2022 End: 07-12-2022 Patient encounter procedure Greg Alarcon [facility] Start: 07-09-2022 End: 07-09-2022 Emergency department patient visit Adam Weinberg Facility:[facility] Start: 07-09-2022 End: 07-09-2022 Emergency department patient visit Adam Weinberg [facility] Start: 07-02-2022 End: 07-03-2022 ambulatory Greg Alarcon Facility:[facility] Start: 06-29-2022 End: 06-29-2022 Emergency department patient visit Reji Azar Facility:[facility] Start: 06-26-[address] NAV ALEJO . Facili ty:[facility] Start: 06-05-2022 End: 06-06-[address] NAV ALEJO . Facility: Start: 05-17-2022 ambulatory UNKNOWN PROVIDER Facili ty:[facility] Start: 05-09-2022 End: 05-09-[address] NAV ALEJO . Facility:[facility] Start: 05-08-2022 End: 05-09-2022 ambulatory LAUREN SCHWARZ Facility:[facility] Start: 04-12-2022 End: 04-13-2022 ambulatory MARANDA HUIZAR Facility:[facility] Start: 03-20-2022 End: 03-21-2022 ambulatory LAUREN Herrera [facility] Facility:[facility] Start: 03-15-2022 End: 03-15-2022 Admission to same day surgery center Greg Alarcon [facility] Start: 03-15-2022 End: 03-15-2022 Patient encounter procedure ASHOK ALARCON [facility] Start: 03-15-2022 End: 03-15-2022 Patient encounter procedure Greg Alarcon [facility] Start: 03-06-2022 End: 03-07-2022 ambulatory MARANDA GAYE Facility:[facility] Start: 02-27-2022 End: 02-28-[address] NAV ALEJO . Facility:[facility] Start: 02-15-2022 End: 02-16-2022 ambulatory NATHEN LUCIA Facility:[facility] Start: 01-11-2022 End: 01-11-[address] NAV ALEJO . Facility:[facility] Start: 01-11-2022 Office outpatient vi sit 15 minutes Nav Alejo Work Phone: [facility] DO Work Phone: Start: 01-11-[address] Seth Ying Facility: Start: 11-02-2021 End: 11-02-2021 Admission to same day surgery center [facility] HerminiaElodia Alarcon [facility] Start: 10-26-2021 End: 10-26-2021 [facility] Start: 10-25-2021 Rx Renewal Nav Alejo Work Phone: [facility] DO Work Phone: Start: 08-28-2021 End: 08-28-2021 ambulatory NYLA MOTA . Facility: Start: 07-13-2021 Office outpatient vi sit 15 minutes Nav Falcon Melo Work Phone: [facility] DO Work Phone: Start: 06-04-2019 End: 06-05-2019 Patient encounter procedure NAV ALEJO Facility:[facility] Procedures Date Procedure Procedure Detail Performing [...] I (substance) Greg Alarcon Comment on above: HYDRAULIC CONTROLS TECHNICIAN of Left Fistula HYDRAULIC CONTROLS TECHNICIAN of Left Fistula Start: 03-31-2020 Arteriovenous fistulization Greg Alarcon Start: 08-06-2019 AV fistula recircula tion (observable entity) Browntapekeenan Alarcon Comment on above: creation of av [...] Hoisaias Work Phone: Surgical procedure Nav M eMlo Work Phone: Comment on above: Sclerosing Multiple Veins By Injection - One Leg; Tonsillectomy and adenoidectomy Nav Alejo Work Phone: Vasectomy Nav Alejo Work Phone: Comment on above: Surgery Vas Deferens Vasectomy; Plan of Treatment Date Care Activity Detail Author Start: 09-02-2023 [facility] Start: 08-29-2023 Administration of prophylactic treatment [facility] Start: 08-25-2023 Referral to radiotelegraph operator [facility] Start: 08-25-2023 Hospital admission [facility] Start: 08-25-2023 Referral to infectious diseases physician [facility] Start: 08-25-2023 Referral to painter ski edge [facility] Start: 06-26-2023 End: 06-26-2023 [facility] Start: 06-25-2023 [facility] Start: 06-24-2023 [facility] Start: 06-23-2023 [facility] Start: 06-22-2023 [facility] Start: 06-21-2023 Referral to radiotelegraph operator [facility] Start: 06-21-2023 Referral to painter ski edge [facility] Start: 06-21-2023 Referral to infectious diseases physician [facility] Start: 06-21-2023 Hospital admission [facility] Start: 06-21-2023 End: 06-21-2023 [facility] Start: 06-21-2023 Bacteria identified in Blood by Culture [facility] Start: 06-21-2023 Detachment at Left Foot, Partial 1st Ray, Open Approach Detachment at Left Foot, Partial 1st Ray, Open Approach [facility] Start: 06-21-2023 Performance of Urinary Filtration, Intermittent, Less than 6 Hours Per Day Performance of Urinary Filtration, Intermittent, Less than 6 Hours Per Day [facility] Start: 04-16-2023 [facility] Start: 04-15-2023 Insertion of peripherally inserted central catheter [facility] Start: 04-10-2023 Referral to infectious diseases physician [facility] Start: 04-09-2023 Referral to radiotelegraph operator [facility] Start: 04-09-2023 Referral to vascular surgeon [facility] Start: 04-09-2023 Referral to painter ski edge [facility] Start: 04-09-2023 Hospital admission [facility] Start: 04-09-2023 Fluoroscopy of Left Upper Extremity Veins using Low Osmolar Contrast Fluoroscopy of Left Upper Extremity Veins using Low Osmolar Contrast [facility] Start: 04-09-2023 Insertion of Infusion Device into Upper Vein, Percutaneous Approach Insertion of Infusion Device into Upper Vein, Percutaneous Approach [facility] Start: 04-09-2023 Inspection of Upper Vein, Percutaneous Approach Inspection of Upper Vein, Percutaneous Approach [facility] Start: 04-09-2023 Performance of Urinary Filtration, Intermittent, Less than 6 Hours Per Day Performance of Urinary Filtration, Intermittent, Less than 6 Hours Per Day [facility] Start: 04-09-2023 Removal of Infusion Device from Upper Vein, External Approach Removal of Infusion Device from Upper Vein, External Approach [facility] Start: 01-31-2023 End: 02-01-2024 Alanine aminotransferase [Enzymatic activity/volume] in Serum or Plasma by With P-5'-P Alanine Aminotransferase Lab Routine Arteriosclerotic heart disease Essential hypertension Hyperlipidemia, unspecified hyperlipidemia type Expected: 01/31/2023 (Approximate), Expires: 02/01/2024 [facility] Work Phone: Comment on above: Expected: 01/31/2023 (Approximate), Expi res: 02/01/2024 Start: 01-31-2023 End: 02-01-2024 Aspartate aminotransferase [Enzymatic activity/volume] in Serum or Plasma by With P-5'-P Aspartate Aminotransferase Lab Routine Arteriosclerotic heart disease Essential hypertension Hyperlipidemia, unspecified hyperlipidemia type Expected: 01/31/2023 (Approximate), Expires: 02/01/2024 [facility] Work Phone: Comment on above: Expected: 01/31/2023 (Approximate), Expi res: 02/01/2024 Start: 01-31-2023 End: 02-01-2024 Lipid 1996 panel - Serum or Plasma Lipid Panel Lab Routine Arteriosclerotic heart disease Essential hypertension Hyperlipidemia, unspecified hyperlipidemia type Expected: 01/31/2023 (Approximate), Expires: 02/01/2024 [facility] Work Phone: Comment on above: Expected: 01/31/2023 (Approximate), Expi res: 02/01/2024 Start: 01-15-2023 FUV, Provider: Seth Ying, Status: Pen, Time: 10:10 AM [facility], Provider: Seth Ying, Status: Pen, Time: 10:10 AM [facility] 250 DO Work Phone: Start: 10-12-2022 Influenza vaccination Influenza Vaccine (#1) [facility] Start: 01-11-2022 FUV, Provider: Seth Ying, Status: Pen, Time: 11:10 AM [facility], Provider: Seth Ying, Status: Pen, Time: 11:10 AM [facility] Work Phone: Start: 10-20-2021 Echocardiography Echocardiogram [facility] Start: 03-28-2021 COVID-19 Vaccine (4 - Pfizer series) COVID-19 Vaccine (4 - Pfizer series) [facility] Start: 11-21-2005 Zoster Vaccines (1 of 2) Zoster Vaccines (1 of 2) [facility] Start: 11-21-1977 DTaP/Tdap/Td Vaccines (1 - Tdap) DTaP/Tdap/Td Vaccines (1 - Tdap) [facility] Start: 11-21-1974 Urine screening for protein Diabetes: Urine Protein Screening [facility] Start: 11-21-1973 Hepatitis C screening Hepatitis C Screening [facility] Start: 11-21-1965 Diabetic foot examination Diabetes: Foot Exam [facility] Start: 11-21-1965 Glaucoma screening Diabetes: Retinopathy Screening [facility] Start: 11-21-1961 Pneumococcal Vaccine: 65+ Years (1 - PCV) Pneumococcal Vaccine: 65+ Years (1 - PCV) [facility] Start: 1955 Creatinine measurement Creatinine Level [facility] Start: 1955 Hemoglobin A1c measurement Diabetes: Hemoglobin A1C [facility] Start: 1955 Lipid panel Lipid Panel [facility] Start: 1955 Medicare Annual Wellness Visit Medicare Annual Wellness Visit (AWV) [facility] Start: 1955 Potassium measurement Potassium Level [facility] Start: 1955 Screening for malignant neoplasm of colon [facility] Start: 1955 Thyroid stimulating hormone measurement TSH Level [facility] Patient Education [facility] Work Phone: Patient referral [facility] Work Phone: Immunizations Immunization Date Immunization Notes Care Provider Charo mayorga 01-31-2021 Pfizer-BioNTech COVID-19 Vacc 30 MCG/0.3ML Intramuscular Suspension Nav Alejo Work Phone: [facility] 250 DO Work Phone: 07-26-2020 Pfizer-BioNTech COVID-19 Vacc 30 MCG/0.3ML Intramuscular Suspension Nav Alejo Work Phone: [facility] 250 DO Work Phone: 07-05-2020 Pfizer-BioNTech COVID-19 Vacc 30 MCG/0.3ML Intramuscular Suspension Nav Aeljo Work Phone: [facility] Payers Date Payer Category Payer Self-pay [id number] 2023 Unknown [id number] 2019 Medicare MEDICARE MEDICAR E PART A AND B [id number] 2019-Present [address] [place] [address] [id number] 2018 Unknown [id number] 2015 Unknown [id number] 1959 Medicare [id number] 1955 Unknown [id number] 2.16.840.1.502169.3.579.2.647 1955 Unknown [id number] 2.16.840.1.999030.3.579.2.732 1955 Unknown [id number] 2.16.840.1.329635.3.579.2.593 1955 Unknown [id number] 2.16.840.1.178946.3.579.2.593 1955 Unknown [id number] 2.16.840.1.936287.3.579.2.593 1955 Unknown [id number] 2.16.840.1.286888.3.579.2.593 1955 Unknown [id number] 2.16.840.1.458077.3.579.2.593 1955 Unknown [id number] 2.16.840.1.103763.3.579.2.593 1955 Unknown [id number] 2.16.840.1.549807.3.579.2.593 1955 Unknown [id number] 2.16.840.1.177405.3.579.2.593 1955 Unknown [id number] 2.16.840.1.997662.3.579.2.593 1955 Unknown [id number] 2.16.840.1.406191.3.579.2.593 1955 Unknown [id number] 2.16.840.1.361899.3.579.2.593 1955 Unknown [id number] 2.16.840.1.392839.3.579.2.356 1955 Unknown [id number] 2.16.840.1.379148.3.579.2.356 1955 Unknown [id number] 2.16.840.1.883662.3.579.2.1244 1955 Unknown [id number] 2.16.840.1.256233.3.579.2.727 1955 Unknown [id number] 2.16.840.1.059457.3.579.2.727 1955 Unknown [id number] 2.16.840.1.251956.3.579.2.727 1955 Unknown [id number] 2.16.840.1.117019.3.579.2.727 1955 Unknown [id number] 2.16.840.1.048412.3.579.2.727 1955 Unknown [id number] 2.16.840.1.959592.3.579.2.727 1955 Unknown [id number] 2.16.840.1.269275.3.579.2.727 1955 Unknown [id number] 2.16.840.1.839319.3.579.2.727 1955 Unknown [id number] 2.16.840.1.786491.3.579.2.727 1955 Unknown [id number] 2.16.840.1.963219.3.579.2.1259 1955 Unknown [id number] 2.16.840.1.247821.3.579.2.1259 1955 Unknown [id number] 2.16.840.1.581059.3.579.2.1259 1955 Unknown [id number] 2.16.840.1.352886.3.579.2.1259 1955 Unknown [id number] 2.16.840.1.025678.3.579.2.125 Unknown Unknown [id number] 2.16.840.1.564669.3.579.2.531 Social History Date Type Detail Facility Tobacco smoking stat [facility] Unknown if ever smoked [facility] Start: 1955 Sex Assigned At Male F [facility] Start: 01-31-2023 Caffeine use Caffeine use [facility] 250 DO Work Phone: Comment on above: 2-3 times weekly- Co ffee. 1 pop daily; Start: 07-07-2020 End: 08-26-2023 Never smoked tobacco (finding) [facility] Start: 01-31-2023 Male [facility] Tobacco smoking status Never [facility] Tobacco [facility] Comment on above: denies Tobacco smoking status No Smokin g Status Entered [facility] Start: 01-31-2023 Tobacco use and exposure Smokeless tobacco non-user [facility] Work Phone: Start: 01-31-2023 Alcohol intake Lifetime non-d carl (finding) [facility] Work Phone: Start: 1955 Sex Assigned At Not on file [facility] Work Phone: Start: 01-21-2023 End: 01-31-2023 Exposure to SARS-CoV-2 (event) Not sure [facility] Medical Equipment Procedure Code Equipment Code [...] status Patient is Pro gressing Toward Baseline [facility] Work Phone: 06-26-2023 Functional status Patient is Pro gressing Toward Baseline [facility] Work Phone: 05-27-2023 Functional Status No [facility] 04-16-2023 Functional status Patient at Baseline [facility] Work Phone: 07-30-2022 Functional Status No [facility] 07-12-2022 Functional Status No [facility] 07-09-2022 Functional Status N/A [facility] 03-15-2022 Functional Status N/A [facility] 03-15-2022 Functional Status No [facility] 11-02-2021 Functional Status N/A [facility] 10-26-2021 No [facility] Mental Status Date Assessment Result Facility 09-02-2023 Cognitive function Cognitive Sta tus Patient at Baseline [facility] Work Phone: 06-26-2023 Cognitive function Cognitive Sta tus Patient at Baseline [facility] Work Phone: 04-16-2023 Cognitive function Cognitive Sta tus Patient at Baseline [facility] Work Phone: Clinical Notes 11-02-2021 to 09-02-2023 Note Date & Type Note Facility 09-02-2023 Progress note Note Date/Time September 02, 2023 7:47am [facility] [address] [place] [address] Nephrology Progress Note Signed Patient: Seth Murphy MR#: [id number] : 1955 Acct:[id number] Age/Sex: 67 / M Adm Date: 4 Loc: 4N Room: [address] [place] [address] Type: ADM IN Attending Dr: Clay Smith MD Copies to: ~ Date of Service: 09/02/2023 Subjective Subjective Narrative: Mr. Murphy is a 67-year-old male with medical history significant for ESRD, DM, HTN, CAD, Peripheral vascular disease with amputation of left big toe. He presented to the [facility] due to suspected infection on his right foot. He is having increased pain and swelling over this past several days. On presentation to the ED he had fever, chills and confusion. He had no leukocytosis but was febrile, tachycardic, normotensive. Sodium 128, glucose 500, lactic acid 2.2. While at [place] he was started on IV vancomycin and Rocephin. He was transferred here for dialysis and continued sepsis management. Upon arrival to [facility] he was noted to have a fever of 102, tachycardia, blood pressure 150s over 50s. He appeared septic. 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 Patient receives dialysis on MWF schedule at [facility].. Nephrology was consulted for ESRD management [...] Skin: No rashes , warm to touch CABLE WEAVER: Awake,Alert, following simple command Musculoskeletal: No swelling [...] Units/3 Ml Insuln.Pen) 0 units SUBCUT TID.WM.HS [facility]; Protocol Stop: 08/24/24 16:59 Last Admin: 09/01/23 21:31 Dose: 12 units Insulin Glargine (Insulin Glargine 300 Units/3 Ml Insuln.Pen) 45 units SUBCUT QHS [facility] Stop: 08/28/24 21:59 Last Admin: 09/01/23 21:44 Dose: 45 units Levothyroxine Sodium (Levothyroxine 100 Mcg Tablet) 100 mcg PO DAILY.0630 [facility] Stop: 08/26/24 06:29 Last Admin: 09/02/23 05:30 Dose: 100 mcg Liothyronine Sodium (Liothyronine 5 Mcg Tablet) 5 mcg PO QAM [facility] Stop: 08/25/24 08:59 Last Admin: 09/01/23 08:24 Dose: 5 mcg Metoprolol Succinate (Metoprolol Succinate 25 Mg Tab.Er.24h) 25 mg PO DAILY [facility] Stop: 08/31/24 08:59 Last Admin: 09/01/23 08:24 Dose: 25 mg Midodrine (Midodrine 5 Mg Tablet) 5 mg PO DAILY PRN PRN Reason: Hypotension Stop: 08/25/24 09:07 Last Admin: 08/26/23 14:59 Dose: 5 mg Morphine Sulfate (Morphine Sulfate 2 Mg/Ml Vial) 2 mg IV-PUSH Q4H PRN PRN Reason: Pain Scale 8 - 10 Last Admin: 08/27/23 11:31 Dose: 2 mg Multi-Ingredient Cream (Lanolin Alcohol/Mo/W.Pet/Dixon (Minerin) 454 Gm Jar) 1 applic TOPICAL DAILY [facility] Stop: 08/30/24 08:59 Last Admin: 09/01/23 08:24 Dose: 1 applic Nystatin (Nystatin 100,000 Unit/Gram Powder 15 Gm Bottle) 1 applic TOPICAL DAILY [facility] Stop: 08/30/24 08:59 Last Admin: 09/01/23 08:24 Dose: 1 applic Paricalcitol (Paricalcitol 10 Mcg/2 Ml Vial) 7 mcg IV-PUSH MoWeFr@1000 [facility] Stop: 08/25/24 09:59 Last Admin: 08/30/23 10:23 [...] the dialysis unit on MWF schedule at [facility] (2) Severe sepsis: Plan: Patient has [...] <Electronically signed by Hilario Nunez MD> 09/02/23 0813 [facility] Work Phone: 1(295) 801-534207-21-2024 Progress note Author Marina Agudelo [facility] September 01, 2023 1:17pm Note Date/Time September 01, 2023 1:17 pm [facility] [address] [place] [address] Nephrology Progress Note Signed Patient: Seth Murphy MR#: [id number] : 1955 Acct:[id number] Age/Sex: 67 / M Adm Date: 4 Loc: 4N Room: [address] [place] [address] Type: ADM IN Attending Dr: Denice Dahl MD Copies to: ~ Date of Service: 09/01/2023 Subjective Subjective Narrative: Mr. Murphy is a 67-year-old male with medical history significant for ESRD, DM, HTN, CAD, Peripheral vascular disease with amputation of left big toe. He presented to the [facility] due to suspected infection on his right foot. He is having increased pain and swelling over this past several days. On presentation to the ED he had fever, chills and confusion. He had no leukocytosis but was febrile, tachycardic, normotensive. Sodium 128, glucose 500, lactic acid 2.2. While at [place] he was started on IV vancomycin and Rocephin. He was transferred here for dialysis and continued sepsis management. Upon arrival to [facility] he was noted to have a fever of 102, tachycardia, blood pressure 150s over 50s. He appeared septic. 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 Patient receives dialysis on MWF schedule at [facility].. Nephrology was consulted for ESRD management and [...] 2.5 Mg Tablet) 2.5 mg PO DAILY [facility] Stop: 08/31/24 11:54 Last Admin: 09/01/23 12:54 Dose: 2.5 mg Apixaban (Apixaban 5 Mg Tablet) 10 mg PO BID [facility] Stop: 09/04/23 09:01 Last Admin: 09/01/23 08:24 Dose: 10 mg Apixaban (Apixaban 5 Mg Tablet) 5 mg PO BID [facility] Stop: 09/03/24 20:59 Atorvastatin Calcium (Atorvastatin 40 Mg Tablet) 40 mg PO QPM [facility] Stop: 08/24/24 20:59 Last Admin: 08/31/23 21:45 [...] 50 mls @ 100 mls/hr IV Q24H [facility] Last Admin: 08/31/23 15:00 Dose: 100 mls/hr Insulin Aspart (Insulin Aspart 300 Units/3 Ml Insuln.Pen) 0 units SUBCUT TID.WM.HS [facility]; Protocol Stop: 08/24/24 16:59 Last Admin: 09/01/23 12:51 Dose: 7 units Insulin Glargine (Insulin Glargine 300 Units/3 Ml Insuln.Pen) 45 units SUBCUT QHS [facility] Stop: 08/28/24 21:59 Last Admin: 08/31/23 21:47 Dose: 45 units Levothyroxine Sodium (Levothyroxine 100 Mcg Tablet) 100 mcg PO DAILY.0630 [facility] Stop: 08/26/24 06:29 Last Admin: 09/01/23 06:11 Dose: 100 mcg Liothyronine Sodium (Liothyronine 5 Mcg Tablet) 5 mcg PO QAM [facility] Stop: 08/25/24 08:59 Last Admin: 09/01/23 08:24 Dose: 5 mcg Metoprolol Succinate (Metoprolol Succinate 25 Mg Tab.Er.24h) 25 mg PO DAILY [facility] Stop: 08/31/24 08:59 Last Admin: 09/01/23 08:24 Dose: 25 mg Midodrine (Midodrine 5 Mg Tablet) 5 mg PO DAILY PRN PRN Reason: Hypotension Stop: 08/25/24 09:07 Last Admin: 08/26/23 14:59 Dose: 5 mg Morphine Sulfate (Morphine Sulfate 2 Mg/Ml Vial) 2 mg IV-PUSH Q4H PRN PRN Reason: Pain Scale 8 - 10 Last Admin: 08/27/23 11:31 Dose: 2 mg Multi-Ingredient Cream (Lanolin Alcohol/Mo/W.Pet/Dixon (Minerin) 454 Gm Jar) 1 applic TOPICAL [...] the dialysis unit on MWF schedule at [facility] (2) Severe sepsis: Plan: Patient has [...] <Electronically signed by MD Marina Agudelo> 09/01/23 5526 [facility] Work Phone: 1(865) 658-133307-21-2024 Progress note Author Denice Dahl [facility] September 01, 2023 11:56am Note Date/Time September 01, 2023 11:5 6am [facility] [address] [place] [address] Hospitalist Progress Note Signed Patient: Seth Murphy MR#: [id number] : 1955 Acct:[id number] Age/Sex: 67 / M Adm Date: 4 Loc: 4N Room: [address] [place] [address] Type: ADM IN Attending Dr: Denice Dahl [...] oriented to place, time and person HEENT: [place] conjunctiva and NL buccal mucosa Neck: Supple, [...] Insuln.Pen SUBCUT 08/24/24 16:59 Not Given TID.WM.HS [facility] Protocol Insulin Glargine 45 units 08/29/23 22:00 [...] 1 applic 08/31/23 09:00 09/01/23 08:24 Lanolin Alcohol/Mo/W.Pet/Dixon (Minerin) 454 Gm Jar TOPICAL 08/30/24 08:59 [...] signed by Denice Dahl MD> 09/01/23 1156 [facility] Work Phone: 1(448) 554-897707-21-2024 Progress note Author Alfredo Acosta [facility] September 01, 2023 10:00am Note Date/Time September 01, 2023 10:0 0am [facility] [address] [place] [address] Infect. Disease Progress Note Signed Patient: Seth Murphy MR#: [id number] : 1955 Acct:[id number] Age/Sex: 67 / M Adm Date: 4 Loc: 4N Room: [address] [place] [address] Type: ADM IN Attending Dr: Denice Dahl [...] 50 mls @ 100 mls/hr IV Q24H [facility] Last Admin: 08/31/23 15:00 Dose: 100 mls/hr Insulin Aspart (Insulin Aspart 300 Units/3 Ml Insuln.Pen) 0 units SUBCUT TID.WM.HS [facility]; Protocol Stop: 08/24/24 16:59 Last Admin: 09/01/23 09:09 Dose: Not Given Insulin Glargine (Insulin Glargine 300 Units/3 Ml Insuln.Pen) 45 units SUBCUT QHS [facility] Stop: 08/28/24 21:59 Last Admin: 08/31/23 21:47 Dose: 45 units Levothyroxine Sodium (Levothyroxine 100 Mcg Tablet) 100 mcg PO DAILY.0630 [facility] Stop: 08/26/24 06:29 Last Admin: 09/01/23 06:11 [...] 11:31 Dose: 2 mg Multi-Ingredient Cream (Lanolin Alcohol/Mo/W.Pet/Dixon (Minerin) 454 Gm Jar) 1 applic TOPICAL [...] alternative in a few weeks after IV long-term now being planned for discharge. Continue vancomycin and cefepime Documented By: Alfredo Acosta MD 09/01/23 0959 Signed By: <Electronically signed by MD Alfredo Acosta> 09/01/23 1000 [facility] Work Phone: 1(130) 285-387307-20-2024 Progress note Author Marina Agudelo [facility] August 31, 2023 1:45pm Note Date/Time August 31, 2023 1:40 pm [facility] [address] [place] [address] Nephrology Progress Note Signed Patient: Seth Murphy MR#: [id number] : 1955 Acct:[id number] Age/Sex: 67 / M Adm Date: 4 Loc: 4N Room: 7F6059-7 Type: ADM IN Attending Dr: Denice Dahl MD Copies to: ~ Date of Service: 08/31/2023 Subjective Subjective Narrative: Mr. Murphy is a 67-year-old male with medical history significant for ESRD, DM, HTN, CAD, Peripheral vascular disease with amputation of left big toe. He presented to the [facility] due to suspected infection on his right foot. He is having increased pain and swelling over this past several days. On presentation to the ED he had fever, chills and confusion. He had no leukocytosis but was febrile, tachycardic, normotensive. Sodium 128, glucose 500, lactic acid 2.2. While at [place] he was started on IV vancomycin and Rocephin. He was transferred here for dialysis and continued sepsis management. Upon arrival to [facility] he was noted to have a fever of 102, tachycardia, blood pressure 150s over 50s. He appeared septic. 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 Patient receives dialysis on MWF schedule at [place] [facility].. Nephrology was consulted for ESRD management and [...] 5 Mg Tablet) 10 mg PO BID [facility] Stop: 09/04/23 09:01 Last Admin: 08/31/23 09:15 Dose: 10 mg Apixaban (Apixaban 5 Mg Tablet) 5 mg PO BID [facility] Stop: 09/03/24 20:59 Atorvastatin Calcium (Atorvastatin 40 [...] 50 mls @ 100 mls/hr IV Q24H [facility] Last Infusion: 08/30/23 17:45 Dose: Infused Insulin Aspart (Insulin Aspart 300 Units/3 Ml Insuln.Pen) 0 units SUBCUT TID.WM.HS [facility]; Protocol Stop: 08/24/24 16:59 Last Admin: 08/31/23 12:22 Dose: 10 units Insulin Glargine (Insulin Glargine 300 Units/3 Ml Insuln.Pen) 45 units SUBCUT QHS [facility] Stop: 08/28/24 21:59 Last Admin: 08/30/23 21:05 Dose: 45 units Levothyroxine Sodium (Levothyroxine 100 Mcg Tablet) 100 mcg PO DAILY.0630 [facility] Stop: 08/26/24 06:29 Last Admin: 08/31/23 06:39 Dose: 100 mcg Liothyronine Sodium (Liothyronine 5 Mcg Tablet) 5 mcg PO QAM [facility] Stop: 08/25/24 08:59 Last Admin: 08/31/23 09:15 Dose: 5 mcg Metoprolol Succinate (Metoprolol Succinate 25 Mg Tab.Er.24h) 25 mg PO DAILY [facility] Stop: 08/31/24 08:59 Midodrine (Midodrine 5 Mg Tablet) 5 mg PO DAILY PRN PRN Reason: Hypotension Stop: 08/25/24 09:07 Last Admin: 08/26/23 14:59 Dose: 5 mg Morphine Sulfate (Morphine Sulfate 2 Mg/Ml Vial) 2 mg IV-PUSH Q4H PRN PRN Reason: Pain Scale 8 - 10 Last Admin: 08/27/23 11:31 Dose: 2 mg Multi-Ingredient Cream (Lanolin Alcohol/Mo/W.Pet/Dixon (Minerin) 454 Gm Jar) 1 applic TOPICAL [...] the dialysis unit on MWF schedule at [facility] (2) Severe sepsis: Plan: Patient has [...] point. Documented By: Marina Agudelo MD 08/31/23 6188 Signed By: <Electronically signed by MD Marina Agudelo> 08/31/23 9342 [facility] Work Phone: 1(500) 829-391807-20-2024 Progress note Author Denice Dahl [facility] August 31, 2023 8:56am Note Date/Time August 31, 2023 8:56 am [facility] [address] [place] [address] Hospitalist Progress Note Signed Patient: Seth Murphy MR#: [id number] : 1955 Acct:[id number] Age/Sex: 67 / M Adm Date: 4 Loc: 4N Room: [id number] Type: ADM IN Attending Dr: Denice Dahl [...] oriented to place, time and person HEENT: [place] conjunctiva and NL buccal mucosa Neck: Supple, [...] Multi-Ingredient Cream 1 applic 08/31/23 09:00 Lanolin Alcohol/Mo/W.Pet/Dixon (Minerin) 454 Gm Jar TOPICAL 08/30/24 08:59 [...] signed by Denice Dahl MD> 08/31/23 0856 [facility] Work Phone: 1(925) 850-265407-20-2024 Progress note Author Alfredo Acosta [facility] August 31, 2023 8:46am Note Date/Time August 31, 2023 8:46 am [facility] [address] [place] [address] Infect. Disease Progress Note Signed Patient: Seth Murphy MR#: [id number] : 1955 Acct:[id number] Age/Sex: 67 / M Adm Date: 4 Loc: 4N Room: [address] [place] [address] Type: ADM IN Attending Dr: Denice Dahl [...] 50 mls @ 100 mls/hr IV Q24H [facility] Last Infusion: 08/30/23 17:45 Dose: Infused Insulin Aspart (Insulin Aspart 300 Units/3 Ml Insuln.Pen) 0 units SUBCUT TID.WM.HS [facility]; Protocol Stop: 08/24/24 16:59 Last Admin: 08/30/23 21:06 Dose: 14 units Insulin Glargine (Insulin Glargine 300 Units/3 Ml Insuln.Pen) 45 units SUBCUT QHS [facility] Stop: 08/28/24 21:59 Last Admin: 08/30/23 21:05 Dose: 45 units Levothyroxine Sodium (Levothyroxine 100 Mcg Tablet) 100 mcg PO DAILY.629 [facility] Stop: 08/26/24 06:29 Last Admin: 08/31/23 06:39 Dose: 100 mcg Liothyronine Sodium (Liothyronine 5 Mcg Tablet) 5 mcg PO QAM [facility] Stop: 08/25/24 08:59 Last Admin: 08/30/23 08:15 Dose: 5 mcg Metoprolol Tartrate (Metoprolol Tartrate 25 Mg Tablet) 25 mg PO BID [facility] Stop: 08/25/24 17:59 Midodrine (Midodrine 5 Mg Tablet) 5 mg PO DAILY PRN PRN Reason: Hypotension Stop: 08/25/24 09:07 Last Admin: 08/26/23 14:59 Dose: 5 mg Morphine Sulfate (Morphine Sulfate 2 Mg/Ml Vial) 2 mg IV-PUSH Q4H PRN PRN Reason: Pain Scale 8 - 10 Last Admin: 08/27/23 11:31 Dose: 2 mg Multi-Ingredient Cream (Lanolin Alcohol/Mo/W.Pet/Dixon (Minerin) 454 Gm Jar) 1 applic TOPICAL DAILY [facility] Stop: 08/30/24 08:59 Nystatin (Nystatin 100,000 Unit/Gram Powder 15 Gm Bottle) 1 applic TOPICAL DAILY [facility] Stop: 08/30/24 08:59 Paricalcitol (Paricalcitol 10 Mcg/2 Ml Vial) 7 mcg IV-PUSH MoWeFr@1000 [facility] Stop: 08/25/24 09:59 Last Admin: 08/30/23 10:23 [...] signed by MD Alfredo Acosta> 08/31/23 0846 [facility] Work Phone: [phone]) 813-253907-19-2024 Progress note Author Marina [facility] August 30, 2023 12:45pm Note Date/Time August 30, 2023 12:4 5pm [facility] [address] [place] [address] Nephrology Progress Note Signed Patient: Seth Murphy MR#: [id number] : 1955 Acct:[id number] Age/Sex: 67 / M Adm Date: 4 Loc: 4N Room: [address] [place] [address] Type: ADM IN Attending Dr: Denice Dahl MD Copies to: ~ Date of Service: 08/30/2023 Subjective Subjective Narrative: Mr. Murphy is a 67-year-old male with medical history significant for ESRD, DM, HTN, CAD, Peripheral vascular disease with amputation of left big toe. He presented to the [facility] due to suspected infection on his right foot. He is having increased pain and swelling over this past several days. On presentation to the ED he had fever, chills and confusion. He had no leukocytosis but was febrile, tachycardic, normotensive. Sodium 128, glucose 500, lactic acid 2.2. While at [place] he was started on IV vancomycin and Rocephin. He was transferred here for dialysis and continued sepsis management. Upon arrival to [facility] he was noted to have a fever of 102, tachycardia, blood pressure 150s over 50s. He appeared septic. 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 Patient receives dialysis on MWF schedule at [facility].. Nephrology was consulted for ESRD management and [...] 50 mls @ 100 mls/hr IV Q24H [facility] Insulin Aspart (Insulin Aspart 300 Units/3 Ml Insuln.Pen) 0 units SUBCUT TID.WM.HS [facility]; Protocol Stop: 08/24/24 16:59 Last Admin: 08/30/23 08:15 Dose: 4 units Insulin Glargine (Insulin Glargine 300 Units/3 Ml Insuln.Pen) 45 units SUBCUT QHS [facility] Stop: 08/28/24 21:59 Last Admin: 08/29/23 22:03 Dose: 45 units Levothyroxine Sodium (Levothyroxine 100 Mcg Tablet) 100 mcg PO DAILY.629 [facility] Stop: 08/26/24 06:29 Last Admin: 08/30/23 06:11 Dose: 100 mcg Liothyronine Sodium (Liothyronine 5 Mcg Tablet) 5 mcg PO QAM [facility] Stop: 08/25/24 08:59 Last Admin: 08/30/23 08:15 Dose: 5 mcg Metoprolol Tartrate (Metoprolol Tartrate 25 Mg Tablet) 25 mg PO BID [facility] Stop: 08/25/24 17:59 Midodrine (Midodrine 5 Mg Tablet) 5 mg PO DAILY PRN PRN Reason: Hypotension Stop: 08/25/24 09:07 Last Admin: 08/26/23 14:59 Dose: 5 mg Morphine Sulfate (Morphine Sulfate 2 Mg/Ml Vial) 2 mg IV-PUSH Q4H PRN PRN Reason: Pain Scale 8 - 10 Last Admin: 08/27/23 11:31 Dose: 2 mg Paricalcitol (Paricalcitol 10 Mcg/2 Ml Vial) 7 mcg IV-PUSH MoWeFr@1000 [facility] Stop: 08/25/24 09:59 Last Admin: 08/30/23 10:23 [...] the dialysis unit on MWF schedule at [facility] (2) Severe sepsis: Plan: Patient has [...] bradycardia Documented By: Marina Agudelo MD 08/30/23 1238 Signed By: <Electronically signed by MD Marina Agudelo> 08/30/23 3833 [facility] Work Phone: 1([phone]) [phone] Progress note Author Felisa Win [facility] August 30, 2023 12:05pm Note Date/Time August 30, 2023 11:3 6am [facility] [address] [place] [address] Podiatry Progress Note Signed Patient: Seth Murphy MR#: [id number] : 1955 Acct:[id number] Age/Sex: 67 / M Adm Date: 4 Loc: Room: [address] [place] [address] Type: ADM IN Attending Dr: Denice Dahl [...] discharge once antibiotic therapy is finalized with [facility] for dressing changes to the right foot which he has had established. He is a patient of Dr. Schwarz at [facility] and would like to [...] <Electronically signed by ISAIAH Win> 08/30/23 1205 [facility] Work Phone: 1([phone]) 755-609507-19-2024 Progress note Author Alfredo Acosta [facility] August 30, 2023 11:37am Note Date/Time August 30, 2023 11:3 8am [facility] [address] [place] [address] Infect. Disease Progress Note Signed Patient: Seth Murphy MR#: [id number] : 1955 Acct:[id number] Age/Sex: 67 / M Adm Date: 4 Loc: N Room: [id number] Type: ADM IN Attending Dr: Denice Dahl [...] Units/3 Ml Insuln.Pen) 0 units SUBCUT TID.WM.HS [facility]; Protocol Stop: 08/24/24 16:59 Last Admin: 08/30/23 08:15 Dose: 4 units Insulin Glargine (Insulin Glargine 300 Units/3 Ml Insuln.Pen) 45 units SUBCUT QHS [facility] Stop: 08/28/24 21:59 Last Admin: 08/29/23 22:03 Dose: 45 units Levothyroxine Sodium (Levothyroxine 100 Mcg Tablet) 100 mcg PO DAILY.629 [facility] Stop: 08/26/24 06:29 Last Admin: 08/30/23 06:11 Dose: 100 mcg Liothyronine Sodium (Liothyronine 5 Mcg Tablet) 5 mcg PO QAM [facility] Stop: 08/25/24 08:59 Last Admin: 08/30/23 08:15 Dose: 5 mcg Metoprolol Tartrate (Metoprolol Tartrate 25 Mg Tablet) 25 mg PO BID [facility] Stop: 08/25/24 17:59 Midodrine (Midodrine 5 Mg Tablet) 5 mg PO DAILY PRN PRN Reason: Hypotension Stop: 08/25/24 09:07 Last Admin: 08/26/23 14:59 Dose: 5 mg Morphine Sulfate (Morphine Sulfate 2 Mg/Ml Vial) 2 mg IV-PUSH Q4H PRN PRN Reason: Pain Scale 8 - 10 Last Admin: 08/27/23 11:31 Dose: 2 mg Paricalcitol (Paricalcitol 10 Mcg/2 Ml Vial) 7 mcg IV-PUSH MoWeFr@1000 [facility] Stop: 08/25/24 09:59 Last Admin: 08/30/23 10:23 [...] 08/30/231133 Signed By: <Electronically signed by MD Alfredo Acosta> 08/30/231136 [facility] Work Phone: [phone] 208-781307-19-2024 Progress note Author Denice Dahl [facility] August 30, 2023 10:25am Note Date/Time August 30, 2023 10:2 5am [facility] [address] [place] [address] Hospitalist Progress Note Signed Patient: Seth Murphy MR#: [id number] : 1955 Acct:[id number] Age/Sex: 67 / M Adm Date: 4 Loc: 4N Room: [address] [place] [address] Type: ADM IN Attending Dr: Denice Dahl MD Copies to: ~ Date of Service: 08/30/2023 Exam Physical Exam Vital Signs: Temp Pulse Resp BP Pulse Ox O2 Del Method 98.2 F 68 18 117/58 L 98 Room Air 08/30/23 10:15 08/30/23 10:19 08/30/23 10:15 08/30/23 10:19 08/30/23 10:15 08/30/23 10:15 Narrative: [pt is awake and alert. oriented to place, time and person HEENT: [place] conjunctiva and NL buccal mucosa Neck: Supple, [...] <Electronically signed by Denice Dahl MD> 08/30/[address] [place] [address] Ctr Work Phone: 1([phone]) 248-638607-18-2024 Progress note Author DAVID [facility] August 29, 2023 12:38pm Note Date/Time August 29, 2023 12:3 8pm [facility] [address] [place] [address] Podiatry Progress Note Signed Patient: Seth Murphy MR#: [id number] : 1955 Acct:[id number] Age/Sex: 67 / M Adm Date: 4 Loc: 4N Room: 6K9724-4 Type: ADM IN Attending Dr: Denice Dahl [...] <Electronically signed by ISAIAH Pop> 08/29/23 1238 [facility] Work Phone: 1([phone] 460-516107-18-2024 Progress note Author Marina Agudelo [facility] August 29, 2023 11:36am Note Date/Time August 29, 2023 11:3 6am [facility] [address] [place] [address] Nephrology Progress Note Signed Patient: Seth Murphy MR#: [id number] : 1955 Acct:[id number] Age/Sex: 67 / M Adm Date: 4 Loc: 4N Room: [address] [place] [address] Type: ADM IN Attending Dr: Denice Dahl MD Copies to: ~ Date of Service: 08/29/2023 Subjective Subjective Narrative: Mr. Murphy is a 67-year-old male with medical history significant for ESRD, DM, HTN, CAD, Peripheral vascular disease with amputation of left big toe. He presented to the [facility] due to suspected infection on his right foot. He is having increased pain and swelling over this past several days. On presentation to the ED he had fever, chills and confusion. He had no leukocytosis but was febrile, tachycardic, normotensive. Sodium 128, glucose 500, lactic acid 2.2. While at [place] he was started on IV vancomycin and Rocephin. He was transferred here for dialysis and continued sepsis management. Upon arrival to [facility] he was noted to have a fever of 102, tachycardia, blood pressure 150s over 50s. He appeared septic. 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 Patient receives dialysis on MWF schedule at [facility].. Nephrology was consulted for ESRD management and [...] 5 Mg Tablet) 10 mg PO BID [facility] Stop: 09/04/23 09:01 Last Admin: 08/29/23 08:09 Dose: 10 mg Apixaban (Apixaban 5 Mg Tablet) 5 mg PO BID [facility] Stop: 09/03/24 20:59 Atorvastatin Calcium (Atorvastatin 40 Mg Tablet) 40 mg PO QPM [facility] Stop: 08/24/24 20:59 Last Admin: 08/28/23 21:04 [...] 100 mls @ 25 mls/hr IV Q12H [facility] Last Admin: 08/28/23 23:42 Dose: 25 mls/hr Sodium Chloride (0.9% Sodium Chloride 1,000 Ml) 1,000 mls @ 0 mls/hr MISCELLANE.Q0M PRN PRN Reason: Dialysis Stop: 08/25/24 09:07 Last Infusion: 08/28/23 09:52 Dose: Infused Insulin Aspart (Insulin Aspart 300 Units/3 Ml Insuln.Pen) 0 units SUBCUT TID.WM.HS [facility]; Protocol Stop: 08/24/24 16:59 Last Admin: 08/29/23 08:09 Dose: 7 units Insulin Glargine (Insulin Glargine 300 Units/3 Ml Insuln.Pen) 45 units SUBCUT QHS [facility] Stop: 08/28/24 21:59 Levothyroxine Sodium (Levothyroxine 100 Mcg Tablet) 100 mcg PO DAILY.0630 [facility] Stop: 08/26/24 06:29 Last Admin: 08/29/23 07:44 Dose: Not Given Liothyronine Sodium (Liothyronine 5 Mcg Tablet) 5 mcg PO QAM [facility] Stop: 08/25/24 08:59 Last Admin: 08/29/23 08:09 Dose: 5 mcg Metoprolol Tartrate (Metoprolol Tartrate 25 Mg Tablet) 25 mg PO BID [facility] Stop: 08/25/24 17:59 Midodrine (Midodrine 5 Mg [...] the great toe. Impression dictated by: Reagan Bugrer M.D.08/29/2023 8:19 AM Dictation Location: [place] [address] Any impression(s) listed above is documentation that [...] the dialysis unit on MWF schedule at [facility] (2) Severe sepsis: Plan: Patient has [...] signed by MD Marina Agudelo> 08/29/23 1136 [facility] Work Phone: [phone] 109-721107-18-2024 Progress note Author Denice Dahl [facility] August 29, 2023 10:55am Note Date/Time August 29, 2023 10:5 5am [facility] [address] [place] [address] Hospitalist Progress Note Signed Patient: Seth Murphy MR#: [id number] : 1955 Acct:[id number] Age/Sex: 67 / M Adm Date: 4 Loc: Room: [address] [place] [address] Type: ADM IN Attending Dr: Denice Dahl [...] oriented to place, time and person HEENT: [place] conjunctiva and NL buccal mucosa Neck: Supple, [...] signed by Denice Dahl MD> 08/29/23 1055 [facility] Work Phone: [phone] 199-785607-18-2024 Progress note Author Alfredo Acosta [facility] August 29, 2023 9:02am Note Date/Time August 29, 2023 8:50 am [facility] [address] [place] [address] Infect. Disease Progress Note Signed Patient: Seth Murphy MR#: [id number] : 1955 Acct:[id number] Age/Sex: 67 / M Adm Date: 4 Loc: 4N Room: [address] [place] [address] Type: ADM IN Attending Dr: Denice Dahl [...] Ringers) 1,000 mls @ 75 mls/hr IV .[id number] [facility] Stop: 08/29/23 10:19 Last Admin: 08/28/23 23:42 Dose: 75 mls/hr Insulin Aspart (Insulin Aspart 300 Units/3 Ml Insuln.Pen) 0 units SUBCUT TID.WM.HS [facility]; Protocol Stop: 08/24/24 16:59 Last Admin: 08/29/23 08:09 Dose: 7 units Insulin Glargine (Insulin Glargine 300 Units/3 Ml Insuln.Pen) 40 units SUBCUT QHS [facility] Stop: 08/24/24 21:59 Last Admin: 08/28/23 21:43 Dose: 40 units Levothyroxine Sodium (Levothyroxine 100 Mcg Tablet) 100 mcg PO DAILY.0630 [facility] Stop: 08/26/24 06:29 Last Admin: 08/29/23 07:44 Dose: Not Given Liothyronine Sodium (Liothyronine 5 Mcg Tablet) 5 mcg PO QAM [facility] Stop: 08/25/24 08:59 Last Admin: 08/29/23 08:09 Dose: 5 mcg Metoprolol Tartrate (Metoprolol Tartrate 25 Mg Tablet) 25 mg PO BID [facility] Stop: 08/25/24 17:59 Midodrine (Midodrine 5 Mg Tablet) 5 mg PO DAILY PRN PRN Reason: Hypotension Stop: 08/25/24 09:07 Last Admin: 08/26/23 14:59 Dose: 5 mg Morphine Sulfate (Morphine Sulfate 2 Mg/Ml Vial) 2 mg IV-PUSH Q4H PRN PRN Reason: Pain Scale 8 - 10 Last Admin: 08/27/23 11:31 Dose: 2 mg Paricalcitol (Paricalcitol 10 Mcg/2 Ml Vial) 7 mcg IV-PUSH MoWeFr@1000 [facility] Stop: 08/25/24 09:59 Last Admin: 08/28/23 09:51 [...] signed by MD Alfredo Acosta> 08/29/23 0902 [facility] Work Phone: 1(390) 813-228507-17-2024 Progress note Author Marina [facility] August 28, 2023 1:59pm Note Date/Time August 28, 2023 1:59 pm [facility] [address] [place] [address] Nephrology Progress Note Signed Patient: Seth Murphy MR#: [id number] : 1955 Acct:[id number] Age/Sex: 67 / M Adm Date: 4 Loc: 4N Room: 3X3799-0 Type: ADM IN Attending Dr: Denice Dahl MD Copies to: ~ Date of Service: 08/28/2023 Subjective Subjective Narrative: Mr. Murphy is a 67-year-old male with medical history significant for ESRD, DM, HTN, CAD, Peripheral vascular disease with amputation of left big toe. He presented to the [facility] due to suspected infection on his right foot. He is having increased pain and swelling over this past several days. On presentation to the ED he had fever, chills and confusion. He had no leukocytosis but was febrile, tachycardic, normotensive. Sodium 128, glucose 500, lactic acid 2.2. While at [place] he was started on IV vancomycin and Rocephin. He was transferred here for dialysis and continued sepsis management. Upon arrival to [facility] he was noted to have a fever of 102, tachycardia, blood pressure 150s over 50s. He appeared septic. 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 Patient receives dialysis on MWF schedule at [place] [facility].. Nephrology was consulted for ESRD management and [...] 100 mls @ 25 mls/hr IV Q12H [facility] Last Admin: 08/28/23 00:35 Dose: 25 mls/hr Sodium Chloride (0.9% Sodium Chloride 1,000 Ml) 1,000 mls @ 0 mls/hr MISCELLANE.Q0M PRN PRN Reason: Dialysis Stop: 08/25/24 09:07 Last Infusion: 08/28/23 09:52 Dose: Infused Lactated Ringer's (Lactated Ringers) 1,000 mls @ 75 mls/hr IV .[id number] [facility] Stop: 08/28/23 22:04 Vancomycin HCl (Vancomycin) 0.75 gm in 250 mls @ 250 mls/hr IV ONCE ONE Stop: 08/28/23 16:29 Insulin Aspart (Insulin Aspart 300 Units/3 Ml Insuln.Pen) 0 units SUBCUT TID.WM.[facility]; Protocol Stop: 08/24/24 16:59 Last Admin: 08/28/23 08:50 Dose: Not Given Insulin Glargine (Insulin Glargine 300 Units/3 Ml Insuln.Pen) 40 units SUBCUT QHS [facility] Stop: 08/24/24 21:59 Last Admin: 08/27/23 22:44 Dose: 40 units Levothyroxine Sodium (Levothyroxine 100 Mcg Tablet) 100 mcg PO DAILY.629 [facility] Stop: 08/26/24 06:29 Last Admin: 08/28/23 06:55 Dose: 100 mcg Liothyronine Sodium (Liothyronine 5 Mcg Tablet) 5 mcg PO QAM [facility] Stop: 08/25/24 08:59 Last Admin: 08/27/23 10:22 Dose: 5 mcg Metoprolol Tartrate (Metoprolol Tartrate 25 Mg Tablet) 25 mg PO BID [facility] Stop: 08/25/24 17:59 Midodrine (Midodrine 5 Mg [...] Uriah Hays M.D.08/27/2023 3:55 PM Dictation Location: [place] [address] Any impression(s) listed above is documentation that [...] day. Documented By: Marina Agudelo MD 08/28/23 0206 Signed By: <Electronically signed by MD Marina Agudelo> 08/28/23 0916 [facility] Work Phone: [phone] 200-335307-17-2024 Progress note Author Alfredo Acosta [facility] August 28, 2023 9:22am Note Date/Time August 28, 2023 9:22 am [facility] [address] [place] [address] Infect. Disease Progress Note Signed Patient: Seth Murphy MR#: [id number] : 1955 Acct:[id number] Age/Sex: 67 / M Adm Date: 4 Loc: 4N Room: 7Z3792-1 Type: ADM IN Attending Dr: Denice Dahl [...] Ringers) 1,000 mls @ 75 mls/hr IV .[id number] [facility] Stop: 08/28/23 22:04 Vancomycin HCl (Vancomycin) 0.75 gm in 250 mls @ 250 mls/hr IV ONCE ONE Stop: 08/28/23 16:29 Insulin Aspart (Insulin Aspart 300 Units/3 Ml Insuln.Pen) 0 units SUBCUT TID.WM.[facility]; Protocol Stop: 08/24/24 16:59 Last Admin: 08/28/23 08:50 Dose: Not Given Insulin Glargine (Insulin Glargine 300 Units/3 Ml Insuln.Pen) 40 units SUBCUT QHS [facility] Stop: 08/24/24 21:59 Last Admin: 08/27/23 22:44 Dose: 40 units Levothyroxine Sodium (Levothyroxine 100 Mcg Tablet) 100 mcg PO DAILY.0630 [facility] Stop: 08/26/24 06:29 Last Admin: 08/28/23 06:55 Dose: 100 mcg Liothyronine Sodium (Liothyronine 5 Mcg Tablet) 5 mcg PO QAM [facility] Stop: 08/25/24 08:59 Last Admin: 08/27/23 10:22 Dose: 5 mcg Metoprolol Tartrate (Metoprolol Tartrate 25 Mg Tablet) 25 mg PO BID [facility] Stop: 08/25/24 17:59 Midodrine (Midodrine 5 Mg Tablet) 5 mg PO DAILY PRN PRN Reason: Hypotension Stop: 08/25/24 09:07 Last Admin: 08/26/23 14:59 Dose: 5 mg Morphine Sulfate (Morphine Sulfate 2 Mg/Ml Vial) 2 mg IV-PUSH Q4H PRN PRN Reason: Pain Scale 8 - 10 Last Admin: 08/27/23 11:31 Dose: 2 mg Paricalcitol (Paricalcitol 10 Mcg/2 Ml Vial) 7 mcg IV-PUSH MoWeFr@1000 [facility] Stop: 08/25/24 09:59 Last Admin: 08/26/23 15:04 [...] By: <Electronically signed by MD Alfredo Acosta> 08/28/23921 [facility] Work Phone: [phone]) 343-836507-17-2024 Progress note Author Denice Dahl [facility] August 28, 2023 8:40am Note Date/Time August 28, 2023 8:40 am [facility] [address] [place] [address] Hospitalist Progress Note Signed Patient: Seth Murphy MR#: [id number] : 1955 Acct:[id number] Age/Sex: 67 / M Adm Date: 4 Loc: 4N Room: [address] [place] [address] Type: ADM IN Attending Dr: Denice Dahl [...] oriented to place, time and person HEENT: [place] conjunctiva and NL buccal mucosa Neck: Supple, [...] 08/28/23 08:45 Lactated Ringers IV 08/28/23 22:04 .[id number] [facility] Insulin Aspart 0 units 08/25/23 17:00 08/27/23 [...] <Electronically signed by Denice Dahl MD> 08/28/2340 [facility] Work Phone: [phone]) 402-615207-16-2024 Progress note Author CWCristo Pop [facility] August 27, 2023 8:40pm Note Date/Time August 27, 2023 8:36 pm [facility] [address] [place] [address] Podiatry Progress Note Signed Patient: Seth Murphy MR#: [id number] : 1955 Acct:[id number] Age/Sex: 67 / M Adm Date: 4 Loc: Room: [address] [place] [address] Type: ADM IN Attending Dr: Denice Dahl [...] By: <Electronically signed by ISAIAH Pop> 08/27/232039 [facility] Work Phone: [phone] Progress note Author Marina Agudelo [facility] August 27, 2023 2:32pm Note Date/Time August 27, 2023 2:32 pm [facility] [address] [place] [address] Nephrology Progress Note Signed Patient: Seth Murphy MR#: [id number] : 1955 Acct:[id number] Age/Sex: 67 / M Adm Date: 4 Loc: 4N Room: 4L9481-1 Type: ADM IN Attending Dr: Denice Dahl MD Copies to: ~ Date of Service: 08/27/2023 Subjective Subjective Narrative: Mr. Murphy is a 67-year-old male with medical history significant for ESRD, DM, HTN, CAD, Peripheral vascular disease with amputation of left big toe. He presented to the [facility] due to suspected infection on his right foot. He is having increased pain and swelling over this past several days. On presentation to the ED he had fever, chills and confusion. He had no leukocytosis but was febrile, tachycardic, normotensive. Sodium 128, glucose 500, lactic acid 2.2. While at [place] he was started on IV vancomycin and Rocephin. He was transferred here for dialysis and continued sepsis management. Upon arrival to [facility] he was noted to have a fever of 102, tachycardia, blood pressure 150s over 50s. He appeared septic. 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 Patient receives dialysis on MWF schedule at [facility].. Nephrology was consulted for ESRD management and [...] 40 Mg Tablet) 40 mg PO QPM [facility] Stop: 08/24/24 20:59 Last Admin: 08/26/23 22:35 Dose: 40 mg Darbepoetin Thomas (Darbepoetin Thomas In Polysorbat 60 Mcg/Ml Vial) 60 mcg IV-PUSHWe@1000 [facility]; Protocol Stop: 08/27/24 09:59 Dextrose (Dextrose 50% In Water 25 Gm/50 Ml Syringe) 0 gm IV-PUSH PRN PRN PRN Reason: Hypoglycemia Stop: 08/24/24 15:28 Enoxaparin Sodium (Enoxaparin 50 Mg/0.5 Ml From Multidose Vial) 50 mg SUBCUT Q12HR.10A.10P [facility] Stop: 08/25/24 10:29 Last Admin: 08/27/23 10:17 [...] 100 mls @ 25 mls/hr IV Q12H [facility] Last Admin: 08/27/23 01:29 Dose: Not Given Sodium Chloride (0.9% Sodium Chloride 1,000 Ml) 1,000 mls @ 0 mls/hr MISCELLANE.Q0M PRN PRN Reason: Dialysis Stop: 08/25/24 09:07 Last Admin: 08/26/23 15:35 Dose: 999 mls/hr Insulin Aspart (Insulin Aspart 300 Units/3 Ml Insuln.Pen) 0 units SUBCUT TID.WM.HS [facility]; Protocol Stop: 08/24/24 16:59 Last Admin: 08/27/23 08:48 Dose: Not Given Insulin Glargine (Insulin Glargine 300 Units/3 Ml Insuln.Pen) 40 units SUBCUT QHS [facility] Stop: 08/24/24 21:59 Last Admin: 08/26/23 22:36 Dose: 40 units Levothyroxine Sodium (Levothyroxine 100 Mcg Tablet) 100 mcg PO DAILY.0630 [facility] Stop: 08/26/24 06:29 Last Admin: 08/27/23 06:56 Dose: 100 mcg Liothyronine Sodium (Liothyronine 5 Mcg Tablet) 5 mcg PO QAM [facility] Stop: 08/25/24 08:59 Last Admin: 08/27/23 10:22 Dose: 5 mcg Metoprolol Tartrate (Metoprolol Tartrate 25 Mg Tablet) 25 mg PO BID [facility] Stop: 08/25/24 17:59 Midodrine (Midodrine 5 Mg [...] the dialysis unit on MWF schedule at [facility] (2) Severe sepsis: Plan: Patient has [...] <Electronically signed by MD Marina Agudelo> 08/27/23 1431 [facility] Work Phone: 1(874) 681-951107-16-2024 Progress note Author Denice Dahl [facility] August 27, 2023 8:55am Note Date/Time August 27, 2023 8:55 am [facility] [address] [place] [address] Hospitalist Progress Note Signed Patient: Seth Murphy MR#: [id number] : 1955 Acct:[id number] Age/Sex: 67 / M Adm Date: 4 Loc: 4N Room: [address] [place] [address] Type: ADM IN Attending Dr: Denice Dahl [...] oriented to place, time and person HEENT: [place] conjunctiva and NL buccal mucosa Neck: Supple, [...] 60 Mcg/Ml Vial IV-PUSH 08/27/24 09:59 We@1000 [facility] Protocol Dextrose 0 gm 08/25/23 15:29 Dextrose [...] Insuln.Pen SUBCUT 08/24/24 16:59 Not Given TID.WM.HS [facility] Protocol Insulin Glargine 40 units 08/25/23 22:00 [...] signed by Denice Dahl MD> 08/27/23 0855 [facility] Work Phone: 1(403) 761-944007-16-2024 Progress note Author Alfredo Acosta [facility] August 27, 2023 8:38am Note Date/Time August 27, 2023 8:38 am [facility] [address] [place] [address] Infect. Disease Progress Note Signed Patient: Seth Murphy MR#: [id number] : 1955 Acct:[id number] Age/Sex: 67 / M Adm Date: 4 Loc: N Room: [address] [place] [address] Type: ADM IN Attending Dr: Denice Dahl [...] 100 mls @ 25 mls/hr IV Q12H [facility] Last Admin: 08/27/23 01:29 Dose: Not Given Sodium Chloride (0.9% Sodium Chloride 1,000 Ml) 1,000 mls @ 0 mls/hr MISCELLANE.Q0M PRN PRN Reason: Dialysis Stop: 08/25/24 09:07 Last Admin: 08/26/23 15:35 Dose: 999 mls/hr Insulin Aspart (Insulin Aspart 300 Units/3 Ml Insuln.Pen) 0 units SUBCUT TID.WM.HS [facility]; Protocol Stop: 08/24/24 16:59 Last Admin: 08/26/23 22:57 Dose: 14 units Insulin Glargine (Insulin Glargine 300 Units/3 Ml Insuln.Pen) 40 units SUBCUT QHS [facility] Stop: 08/24/24 21:59 Last Admin: 08/26/23 22:36 Dose: 40 units Levothyroxine Sodium (Levothyroxine 100 Mcg Tablet) 100 mcg PO DAILY.0630 [facility] Stop: 08/26/24 06:29 Last Admin: 08/27/23 06:56 Dose: 100 mcg Liothyronine Sodium (Liothyronine 5 Mcg Tablet) 5 mcg PO QAM [facility] Stop: 08/25/24 08:59 Last Admin: 08/26/23 09:53 Dose: 5 mcg Metoprolol Tartrate (Metoprolol Tartrate 25 Mg Tablet) 25 mg PO BID [facility] Stop: 08/25/24 17:59 Midodrine (Midodrine 5 Mg Tablet) 5 mg PO DAILY PRN PRN Reason: Hypotension Stop: 08/25/24 09:07 Last Admin: 08/26/23 14:59 Dose: 5 mg Morphine Sulfate (Morphine Sulfate 2 Mg/Ml Vial) 2 mg IV-PUSH Q4H PRN PRN Reason: Pain Scale 8 - 10 Paricalcitol (Paricalcitol 10 Mcg/2 Ml Vial) 7 mcg IV-PUSH MoWeFr@1000 [facility] Stop: 08/25/24 09:59 Last Admin: 08/26/23 15:04 [...] signed by MD Alfredo Acosta> 08/27/23 0838 [facility] Work Phone: [phone]) 782-747207-15-2024 Consult note Author CWCristo Pop [facility] August 26, 2023 7:13pm Note Date/Time August 26, 2023 7:01 pm [facility] [address] [place] [address] Podiatry Consult Note Signed Patient: Seth Murphy MR#: [id number] : 1955 Acct:[id number] Age/Sex: 67 / M Adm Date: 4 Loc: 4N Room: [address] [place] [address] Type: ADM IN Attending Dr: Denice Dahl MD Copies to: MD Romoe Dave,DPM, MS, CWS Denice Dahl MD~ HPI [...] Patient had been seen recently at the [place] [facility] with Dr. Schwarz, who [...] negative unless noted below or in HPI [facility] Medical History MRSA bacteremia Cellulitis of [...] By: Romeo Pop,ISAIAH, , DAVID 08/11 07/04 1799 Signed By: <Electronically signed by ISAIAH Pop> 08/26/23 191 [facility] Work Phone: 1(434) 510-967707-15-2024 Consult note Author Marina Agudelo [facility] August 26, 2023 2:32pm Note Date/Time August 26, 2023 2:22 pm [facility] [address] [place] [address] Nephrology Consult Note Signed Patient: Seth Murphy MR#: [id number] : 1955 Acct:[id number] Age/Sex: 67 / M Adm Date: 4 Loc: 4N Room: [address] [place] [address] Type: ADM IN Attending Dr: Denice Dahl MD Copies to: MD Marina Dave MD Rafik Massouh, MD~ Providers Consult Date: 08/26/23 Requesting Provider: Denice Dahl MD Primary Care Provider: Nav Alejo MD HPI Reason for Consult: Management of ESRD and dialysis History of Present Illness: Mr. uMrphy is a 67-year-old male with medical history significant for ESRD, DM, HTN, CAD, Peripheral vascular disease with amputation of left big toe. He presented to the [facility] due to suspected infection on his right foot. He is having increased pain and swelling over this past several days. On presentation to the ED he had fever, chills and confusion. He had no leukocytosis but was febrile, tachycardic, normotensive. Sodium 128, glucose 500, lactic acid 2.2. While at [place] he was started on IV vancomycin and Rocephin. He was transferred here for dialysis and continued sepsis management. Upon arrival to [facility] he was noted to have a fever of 102, tachycardia, blood pressure 150s over 50s. He appeared septic. 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 Patient receives dialysis on MWF schedule at [place] [facility].. Nephrology was consulted for ESRD management and [...] negative unless noted below or in HPI [facility] Medical History MRSA bacteremia Cellulitis of [...] 100 mls @ 25 mls/hr IV Q12H [facility] Last Admin: 08/26/23 00:28 Dose: 25 mls/hr Sodium Chloride (0.9% Sodium Chloride 1,000 Ml) 1,000 mls @ 0 mls/hr MISCELLANE.Q0M PRN PRN Reason: Dialysis Stop: 08/25/24 09:07 Sodium Chloride (0.9% Sodium Chloride 1,000 Ml) 1,000 mls @ 70 mls/hr IV .[id number] [facility] Stop: 08/27/23 00:17 Last Admin: 08/26/23 09:56 Dose: 70 mls/hr Insulin Aspart (Insulin Aspart 300 Units/3 Ml Insuln.Pen) 0 units SUBCUT TID.WM.HS [facility]; Protocol Stop: 08/24/24 16:59 Last Admin: 08/26/23 09:52 Dose: 3 units Insulin Glargine (Insulin Glargine 300 Units/3 Ml Insuln.Pen) 40 units SUBCUT QHS [facility] Stop: 08/24/24 21:59 Last Admin: 08/25/23 21:51 Dose: 40 units Levothyroxine Sodium (Levothyroxine 100 Mcg Tablet) 100 mcg PO DAILY.0630 [facility] Stop: 08/26/24 06:29 Liothyronine Sodium (Liothyronine 5 Mcg Tablet) 5 mcg PO QAM [facility] Stop: 08/25/24 08:59 Last Admin: 08/26/23 09:53 Dose: 5 mcg Midodrine (Midodrine 5 Mg Tablet) 5 mg PO DAILY PRN PRN Reason: Hypotension Stop: 08/25/24 09:07 Morphine Sulfate (Morphine Sulfate 2 Mg/Ml Vial) 2 mg IV-PUSH Q4H PRN PRN Reason: Pain Scale 8 - 10 Paricalcitol (Paricalcitol 10 Mcg/2 Ml Vial) 7 mcg IV-PUSH MoWeFr@1000 [facility] Stop: 08/25/24 09:59 Prochlorperazine Edisylate (Prochlorperazine Edisylate [...] Reagan Burger M.D.08/25/2023 5:38 PM Dictation Location: [place] [address] Any impression(s) listed above is documentation that [...] the dialysis unit on MWF schedule at [facility]. (2) Ventricular bigeminy: Plan: -Patient has [...] <Electronically signed by MD Marina Agudelo> 08/26/23 1435 [facility] Work Phone: 1([phone]) 167-171207-15-2024 Progress note Author Denice Dahl [facility] August 26, 2023 9:50am Note Date/Time August 26, 2023 9:50 am [facility] [address] [place] [address] Hospitalist Progress Note Signed Patient: Seth Murphy MR#: [id number] : 1955 Acct:[id number] Age/Sex: 67 / M Adm Date: 4 Loc: 4N Room: 2Y0134-7 Type: ADM IN Attending Dr: Denice Dahl MD Copies to: ~ Date of Service: 08/26/2023 Subjective Subjective Narrative: Patient is a 67 year old male with past medical history of poorly controlled type 2 diabetes, hypertension, coronary artery disease, ESRD on dialysis Saturday, and asthma who presented to [facility] due to suspectedinfected of his left foot. Patient has been complaining of increase pain and swelling of left foot over the past several days. He presented to [place] withfevers, chills, confusion, chest x-ray with no acute pathology. He was given IVvancomycin and Rocephin at the [place], no leukocytosis found however fever at [facility] 101 with tachycardia however blood pressure remained [...] oriented to place, time and person HEENT: [place] conjunctiva and NL buccal mucosa Neck: Supple, [...] 60 Mcg/Ml Vial IV-PUSH 08/27/24 09:59 We@1000 [facility] Protocol Dextrose 0 gm 08/25/23 15:29 Dextrose 50% In Water 25 Gm/50 Ml Syringe IV-PUSH 08/24/24 15:28 PRN PRN Hypoglycemia Enoxaparin Sodium 50 mg 08/26/23 10:00 Enoxaparin 30 Mg/0.3 Ml Syringe SUBCUT 08/25/24 09:59 Q12HR.10A.10P [facility] Glucose 0 gm 08/25/23 15:29 Dextrose 40% [...] Sodium Chloride 1,000 Ml IV 08/27/23 00:17 .[id number] [id number] Insulin Aspart 0 units 08/25/23 17:00 [...] signed by Denice Dahl MD> 08/26/23 0950 [facility] Work Phone: [phone] Consult note Author Alfredo Acosta [facility] August 26, 2023 9:13am Note Date/Time August 26, 2023 9:13 am [facility] [address] [place] [address] Infect. Disease Consult Note Signed Patient: Seth Murphy MR#: [id number] : 1955 Acct:[id number] Age/Sex: 67 / M Adm Date: 4 Loc: 4N Room: [id number] Type: ADM IN Attending Dr: Denice Dahl [...] negative unless noted below or in HPI [facility] Medical History MRSA bacteremia Cellulitis of [...] 40 Mg Tablet) 40 mg PO QPM [facility] Stop: 08/24/24 20:59 Last Admin: 08/25/23 21:49 Dose: 40 mg Dextrose (Dextrose 50% In Water 25 Gm/50 Ml Syringe) 0 gm IV-PUSH PRN PRN PRN Reason: Hypoglycemia Stop: 08/24/24 15:28 Glucose (Dextrose 40% Gel 15 Gm Tube) 0 gm PO PRN PRN PRN Reason: Hypoglycemia Stop: 08/24/24 15:28 Heparin Sodium (Porcine) (Heparin 5,000 Unit/Ml Vial) 5,000 unit SUBCUT Q8HR [facility] Stop: 08/24/24 21:59 Last Admin: 08/26/23 06:51 Dose: 5,000 unit Piperacillin Sod/Tazobactam Sod (Zosyn) 4.5 gm in 100 mls @ 25 mls/hr IV Q12H [facility] Last Admin: 08/26/23 00:28 Dose: 25 mls/hr Insulin Aspart (Insulin Aspart 300 Units/3 Ml Insuln.Pen) 0 units SUBCUT TID.WM.HS [facility]; Protocol Stop: 08/24/24 16:59 Last Admin: 08/25/23 21:50 Dose: 12 units Insulin Glargine (Insulin Glargine 300 Units/3 Ml Insuln.Pen) 40 units SUBCUT QHS [facility] Stop: 08/24/24 21:59 Last Admin: 08/25/23 21:51 Dose: 40 units Levothyroxine Sodium (Levothyroxine 100 Mcg Tablet) 100 mcg PO DAILY [facility] Stop: 08/25/24 08:59 Liothyronine Sodium (Liothyronine 5 [...] <Electronically signed by MD Alfredo Acosta> 08/26/23912 [facility] Work Phone: [phone]) 767-781407-14-2024 History and physical note Author Alon Santiago [facility] August 25, 2023 3:50pm Note Date/Time August 25, 2023 3:47 pm [facility] [address] [place] [address] Hospitalist H&P Signed Patient: Seth Murphy MR#: [id number] : 1955 Acct:[id number] Age/Sex: 67 / M Adm Date: 4 Loc: Room: [address] [place] [address] Type: ADM IN Attending Dr: Alon Santiago MD Copies to: MD Alon Dave MD~ HPI DATE OF EXAMINATION: 08/25/23 CHIEF COMPLAINT: Fever, confusion HISTORY OF PRESENT ILLNESS: Patient is a 67 year old male with past medical history of poorly controlled type 2 diabetes, hypertension, coronary artery disease, ESRD on dialysis Saturday, and asthma who presented to [facility] due to suspectedinfected of his left foot. Patient has been complaining of increase pain and swelling of left foot over the past several days. He presented to [place] withfevers, chills, confusion, chest x-ray with no acute pathology. He was given IVvancomycin and Rocephin at the [place], no leukocytosis found however fever at [place] 101 with tachycardia however blood pressure remained [...] except as mentioned elsewhere in the documentation [facility] Medical History MRSA bacteremia Cellulitis of [...] <Electronically signed by Alon Santiago MD> 08/25/23 [facility] Work Phone: [phone]) [phone] NotePatient having procedure @ [place] per Dr. Alarcon. Order & office note emailed to Bernadette prepress stripper @ Sonia Wright RN Director Physician Services @ [facility], & faxed to LORE Mazariegos @ [facility] office. Notified patient's procedure will be scheduled @ [facility] & [place] office will notify patient. [phone] Received call from Delilah @ [facility] relaying patient is scheduled for procedure 06/06/2023 @ [facility] will contact patient with date of procedure & instructions. [facility] scheduled for PAT Saturday06/03/2023 @ 0800 am @ [facility]. Procedure scheduled for 06/06/2023 @ 12 noon arrival time 11 am @ [facility] (case #[id number]) Notified patients Dee Dee date/time for PAT & date/time for procedure, relayed to Dee Dee instructions for procedure will be given to patient during PAT visit.[facility] HospitalComment on above: Result Comment: Electronically Signed By: Liya Diehl\.br\Date and Time Signed: 05/29/23 14:14 [id number] NoteSubjective Patient ID: Seth Murphy is a [...] past 36 hour(s)). No follow-ups on file.[facility]12-27-2023 Note Subjective Patient ID: Seth [...] visit: End stage renal disease on dialysis ([facility]) - Vasc Us Dialysis Fistula; [...] past 36 hour(s)). No follow-ups on file.[facility]12-21-2023 History of Present illness Narrative* [...] hypotension. He has a history of remote PCI/POSTDOCTORAL RESEARCH FELLOW intervention of the LAD in 2018 with [...] ESRD (end stage renal disease) on dialysis ([facility]) 4. Diabetes mellitus of other type without complication, unspecified whether fci insulin use ([facility]) 5. Essential hypertension 6. Hyperlipidemia, unspecified hyperlipidemia type 7. Never smoked any substance [facility] Work Phone: [phone]) 974-392512-21-2023 Instructions* Patient Instructions* Sarita Hernandes CMA - [...] time of your visit. documented in [facility]Mer[facility] Work Phone: [phone] NotePatient: Seth Diazt Procedure Summary Date: 01/18/23 Room / Location: [facility] 06 / [facility] Operating Room Anesthesia Start: 1008 Anesthesia Stop: 1150 Procedure: Right Radial Cephalic Fistula Creation - CPT Codes 93867,41576,57716,45000 (Right: Arm Upper) Diagnosis: End stage renal disease on dialysis ([facility]) Encounter for pre-operative examination (End stage renal disease on dialysis ([facility]) [N18.6, Z99.2]) (Encounter for pre-operative [...] per anesthesia protocol. No notable events documented.[facility]12-08-2023 Note Airway Date/Time: 01/18/2023 10:16 AM Urgency: elective Airway not difficult General Information and Staff Patient location during procedure: OR Anesthesiologist: Maranda Chavez MD Resident/HAULPAK DRIVER/CAA: Katerin Chung MD Performed: resident/HAULPAK DRIVER/CAA Indications and Patient Condition Indications for airway [...] (cm): 23 Number of attempts at approach: 1UnAshtabula [facility] Center12-08-2023 NotePatient: Seth Murphy Procedure Information Date/Time: 01/18/23 1000 Procedure: Right Upper Extremity Fistula Creation - CPT Codes 97027,34169,47974,44422 (Right) Location: [facility] 06 / [facility] Operating Room Surgeons: Greg Alarcon [...] Plan discussed with attending. Additional Equipment RequestsOhioHealth Grove City [facility] Hospital12-08-2023 Note Pre-operative History and Physical [...] kidney disease Coronary artery disease Diabetes mellitus ([facility]) Heart disease Hyperlipidemia Hypertension Hypothyroidism Myocardial infarction ([facility]) Peripheral vascular disease ([facility]) Past Surgical History: Procedure Laterality [...] Ana Phan MD PGY-4 Vascular Surgery Resident 01/18/23UnAshtabula [facility] Center12-05-2023 NoteArteriovenous Fistula Procedure Note Indications: The patient [...] the patient was taken back to the Off Premise Service Representative placed in supine position appropriate cardiopulmonary except [...] and scrubbed for the entire procedure. [facility]11-30-2023 NoteasUnAshtabula County Medical Center11-29-2023 NoteSubjective Patient ID: Seth Murphy is a [...] balloon assisted maturation with Dr. Alarcon in tag and label cutter -Discussed the risks, benefits, alternatives of the procedure with the patient and time was alloted for all questions to be answered. Patient provided both verbal and written consent No diagnosis found. No orders of the defined types were placed in this encounter. No results found for this or any previous visit (from the past 36 hour(s)). No follow-ups on file.[facility]09-05-2023 Note aSubjective Patient ID: Seth [...] past 36 hour(s)). No follow-ups on file.[facility]09-05-2023 Note aSubjective Patient ID: Seth [...] without issues- [place]. Review of Systems Neurological: Positive for numbness. [...] ESRD (end stage renal disease) on dialysis ([facility]) Vascular US upper extremity hemodialysis access duplex right #ESRD on HD using CVC currently with recent creation R RCAVF - hold off on cannulation as AVF matures -continue with HD via CVC - hand/superintendent terminal exercises demonstrated - US of AVF at 6-8 weeks and f/up at that time, sooner if neededUnAshtabula County Medical Center08-23-2023 NotePatient: Seth Murphy Procedure Summary Date: 10/02/22 Room / Location: [facility] 06 / [facility] Operating Room Anesthesia Start: 1705 [...] per anesthesia protocol. No notable events documented.[facility]08-22-2023 Note Patient: Seth Murphy Procedure Summary Date: 10/02/22 Room / Location: [facility] 06 / [facility] Operating Room Anesthesia Start: 1705 Anesthesia Stop: Procedure: CREATION, RADIOCEPHALIC AV FISTULA (Right: Arm Lower) Diagnosis: (End stage renal disease) Surgeons: Greg Alarcon MD Responsible Provider: Petra Degroot MD Anesthesia Type: general ASA Status: 4 Anesthesia Post Transport Note Transport to: PACU O2 Route: room air Patient Monitor: direct observation Transport: uneventful Patient condition is: stableUnAshtabula County Medical Center08-22-2023 Note Airway Date/Time: 10/02/2022 5:21 PM Urgency: elective Airway not difficult General Information and Staff Patient location during procedure: OR Anesthesiologist: Petra Degroot MD Resident/HAULPAK DRIVER/CAA: LATRELL Luciano Performed: resident/HAULPAK DRIVER/LATRELL Indications and Patient Condition Indications for airway [...] ETT fit tight but without resistance through cords/tracheaUnAshtabula County Medical Center08-22-2023 NotePatient: Seth Murphy Procedure Information Date/Time: 10/02/22 1430 Procedure: CREATION, AV FISTULA (Right) - start as last case Location: [facility] 06 / [facility] Operating Room Surgeons: Greg Alarcon [...] with patient who. Plan discussed with resident, HAULPAK DRIVER and CAA. Additional Equipment RequestsUnAshtabula County Medical Center06-29-2023 Evaluation note* Encounter Date Diagnosis Assessment Notes [...] dialysis fistula, subsequent encounter (ICD-10 - T82.7XXD) Index Other 06-09-2023 NoteMicrobiology PROCEDURE: Blood Culture Charcoal [R1] SOURCE: Blood BODY SITE: COLLECTED DATE/TIME: 07/13/2022 16:50 EDT RECEIVED DATE/TIME: 07/13/2022 17:35 EDT START DATE/TIME: 07/13/2022 17:35 EDT FREE TEXT SOURCE: HD CVC venous lumen Aaron FISH, Cristino Chao MD FINAL REPORTS Final Report [] Verified Date/Time: 07/20/2022 18:00 EDT No growth at 7 days. Performing Locations R1: This test was performed at: [facility], [address] [place] [address], [address] [place] [address], GcyohuAshtabula General HospitalComment on above:Performed By: #### [id number] ####[facility] [address] [place], [place] [id number] NoteMicrobiology PROCEDURE: Blood Culture Charcoal [R1] SOURCE: Blood BODY SITE: COLLECTED DATE/TIME: 07/13/2022 16:50 EDT RECEIVED DATE/TIME: 07/13/2022 17:33 EDT START DATE/TIME: 07/13/2022 17:33 EDT FREE TEXT SOURCE: HD CVC Aaron FISH, Cristino Chao MD FINAL REPORTS Final Report [] Verified Date/Time: 07/20/2022 18:00 EDT No growth at 7 days. Performing Locations R1: This [facility] was performed at: [facility], [address] [place] [address], [id number], [address] [place], [place] [address]Comment on above:Performed By: #### [id number], [id number], [id number] #### [facility] [address] [place] [address] [id number] NoteMicrobiology PROCEDURE: Blood Culture Charcoal [R1] SOURCE: Blood BODY SITE: Arm R COLLECTED DATE/TIME: 07/12/2022 17:44 EDT RECEIVED DATE/TIME: 07/12/2022 18:33 EDT START DATE/TIME: 07/12/2022 18:33 EDT FREE TEXT SOURCE: IV start PHILLIPS AGACNP-BC, Nathalie PHILLIPS AGACNP-BC, Nathalie FINAL REPORTS Final Report [] Verified Date/Time: 07/20/2022 07:00 EDT No growth at 7 days. Performing Locations R1: This test was performed at: [facility], [address] [place] [address], [id number] [place] [address], [address] [place], [place] [address]Comment on above:Performed By: #### [id number], [id number], [id number] #### [facility] [address] [place] [address] [id number] NoteMicrobiology PROCEDURE: Blood Culture Charcoal [R1] SOURCE: Blood BODY SITE: Hand R COLLECTED DATE/TIME: 07/12/2022 16:34 EDT RECEIVED DATE/TIME: 07/12/2022 16:43 EDT START DATE/TIME: 07/12/2022 16:43 EDT FREE TEXT SOURCE: PHILLIPS AGACNP-BC, Nathalie PHILLIPS AGACNP-BC, Nathalie FINAL REPORTS Final Report [] Verified Date/Time: 07/19/2022 18:00 EDT No growth at 7 days. Performing Locations R1: This test was performed at: [facility], [address] [place] [address], [id number] , [place], BbvyfqAshtabula General HospitalComment on above:Performed By: #### [id number], [id number], [id number] #### [facility] [address] [place] [address] [id number] NoteAdmission and Discharge Information Admit Date/Time:07/12/2022 15:58 [...] with contrast (08/04/2020), Removal of catheter (07/07/2020), 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), AV - Creation of arteriovenous fistula (03/31/2020), AV fistula recirculation (08/06/2019), Abdominal hernia, Cholecystectomy, H/O: tracheostomy, Placement of stent in cardiac conduit. Hospital Course 86-year-old male with PMH of CAD, SD, chronic systolic heart failure, HTN, HLD, T2IDDM, peripheral neuropathy, ESRD on HD, hypothyroidism, b/l LE venous insufficiency, venous stasis ulcer?chronic. -Patient presented to [facility] as a direct admit at the request [...] be reviewed and discussed with PCP or composite bond technician MD once the hospital edger saw operator is able to reach him/her. Ispent [...] made to ensure accuracy, however, inadvertently computerized litigation manager mistakes may be present. Significant Findings No qualifying data available. Services Consulted Consult to Dietitian Adult - Ordered -- 07/17/22 13:20:10 EDT Consult to Infectious Disease Physician - Ordered -- 07/13/22 11:46:00 EDT, LUE infected AVF, cellulitis, Consult and Co-manage Consult to Nephrology - Ordered -- 07/12/22 15:52:00 EDT, ESRD, Consult and Co-manage (more content not included)...[facility] on above:Result Comment: Electronically Signed By: Nathalie HAAS\.br\Date and Time Signed: 07/19/22 17:35 EDT\.br\Electronically Co-Signed By: LOUANN FISH, Chandrakant P\.br\Date and Time Co-Signed: 07/19/2316:38 [id number] NoteEchocardiology Procedure Exam Date/Time Accession # Ordering Dr. Calzada Transthoracic 07/19/2022 16:30 EDT [id number] Nathalie HAAS Complete CPT code 72640 61582 Reason for Exam (Echo Transthoracic Complete) MRSA in AVF;Other (please specify) Report [facility] [address] [place] [address] Adult Echocardiogram Report Name: SETH MURPHY Study Date: 07/19/2022 03:59 PM BP: 101/54 mmHg Patient Location: [address] [place] [address] HR: 81 : 1955 Gender: Male Height: [...] Loco Menjivar MD Transcribed by: BO Technologist: [facility]06-08-2023 Note CRM entered the room to discuss dc planning. PCP, DME and insurance discussed. Patient is alert andinvolved in plan of care. Contact information provided and whiteboard updated. Pt will transport via van, [facility] will cover cost per [facility]. Pt will receive 4wks of IV vanco at HD, HD to be notified. Pt's made aware of plan. No further needs. Ant dc today. CRM to follow.[facility] HospitalComment on above:Result Comment: Electronically Signed By: Sarah Tena\Date and Time Signed: 07/19/22 10:50 [id number] NoteMicrobiology PROCEDURE: Tissue Culture [R1] SOURCE: Tissue [...] Result called to Peg Prado (3S) by [facility] and results read back for confirmation [...] Locations R1: This test was performed at: [facility], [address] [place] [address], [id number]- , [place], VrxoufAshtabula General HospitalComment on above:Performed By: #### [id number], [id number], [id number] #### [facility] [address] [place] [address] [id number] NoteCRM entered the room to discuss dc [...] to HD. ANt dc 07/19or 07/20. van transport.[facility] HospitalComment on above:Result Comment: Electronically Signed By: Sarah Tena\Elodiabr\Date and Time Signed: 07/17/22 11:30 [id number] NoteCRM entered the room to discuss dc planning. PCP, DME and insurance discussed. Patient is alert andinvolved in plan of care. Contact information provided and whiteboard updated. Per PT pt rec SNF, pt agreeable to [facility], they have accepted. Pt will need 3MN stay. Plan to see vascular Saturday. Pt's friend will transport to HD. Ant dc 07/16. CRM to follow.[facility] HospitalComment on above:Result Comment: Electronically Signed By: Sarah Tena\.br\Date and Time Signed: 07/14/22 13:10 [id number] NoteMicrobiology PROCEDURE: Wound Culture [R1] SOURCE: Wound BODY SITE: Arm L COLLECTED DATE/TIME: 07/12/2022 16:45 EDT RECEIVED DATE/TIME: 07/12/2022 16:53 EDT START DATE/TIME: 07/12/2022 16:53 EDT FREE TEXT SOURCE: [facility], Nathalie PHILLIPS [facility], Nathalie FINAL REPORTS Final Report [] Verified Date/Time: 07/14/2022 11:20 EDT 2+ Methicillin-Resistant Staphylococcus aureus MRSA MRSA Result called to Natalie Foreman (3S) by [facility] and results read back for confirmation [...] Locations R1: This test was performed at: [facility], [address] [place] [address], [id number]- , [place], SpeyveAshtabula General HospitalComment on above:Performed By: #### [id number], [id number], [id number] #### [facility] [address] [place] [address] [id number] NotePT Evaluation done this date. Pt. with on AM-PAC this date. Very weak and fatigued. Difficulty standing upright to use FWW safely. Recommend SNF.[facility]06-01-20[facility] NoteBasic Information Admit Date/Time:07/12/2022 14:01 Chief Complaint r/o infection of fistula History of Present Illness 86-year-old male with PMH of CAD, SD, chronic systolic heart failure, HTN, HLD, T2IDDM, peripheral neuropathy, ESRD on HD, hypothyroidism, b/l LE venous insufficiency, venous stasis ulcer?chronic. -Patient presented to [facility] as a direct admit at the request [...] mg/dL High (07/12/22 16:44:00) POC Device SN: [id number] (07/12/22 16:44:00) POC User ID: [id number] (07/12/22 16:44:00) POC Username: MIKEY CUEVAS (07/12/22 [...] artery disease (I25.10: Atherosclerotic heart disease of [place] coronary artery withoutangina pectoris) -Aspirin, atorvastatin, 4. Chronic systolic heart failure (I50.22: Chronic systolic (congestive) heart failure) Stable -Fluid mgt. per HD 5. Insulin dependent type 2 diabetes mellitus (E11.9: Type 2 diabetes mellitus without complications) Accuchecks AC/HS w/ SSI prn -Home regimen: Insulin 70/30 14u HS -Decrease insulin 70/30 to 7u HS - uptitrate as tolerated -Hypoglycemic p (more content not included)...[facility] HospitalComment on above:Result Comment: Electronically Signed By: Nathalie [...] Follow these instructions at home: Medicines Take idqv-qjz-dqwemjm and prescription medicines only as told by [...] provider. Document Revised: 07/24/2021 Document Reviewed: 07/24/2021 [employer] Patient Education 2022 [employer]. Follow Up Care 07/09/2022 17:23:13 With:Greg Alarcon Address: [address] [place] [address]- Business (1) When:07/12/2022 18:59:06 Comments:Follow-up with Dr. Alarcon for further evaluation of your fistula. With:Nav Alejo Address: [address] [place] [address]- Business (1) When:07/12/2022 18:58:50 Comments:Follow-up with your primary care provider in 3 to 5 days. If symptoms worsen, do not improve, or new symptoms arise please report back to emergency department for further evaluation. 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 Physical Exam General: alert, no acute distress [...] 72.9 % Lymph Auto - 9.1 % [place] Auto - 16.7 % Eos Auto - 1.0 % Basophil Auto - 0.3 % Neutro Absolute - 5.2 E9/L Lymph Absolute - 0.6 E9/L [place] Absolute - 1.2 E9/L Eos Absolute - [...] - 146 mg/dL POC Device SN - [id number] POC User ID - [id number] POC Username - MIKKI LING CBC w/ [...] Greg Alarcon 08/06/2022 10:00 AM EDT [address] [place] [address]- Business (1) Additional Instructions: Nav Alejo 07/13/2022 11:15 AM EDT [address] [place] [address]- Business (1) Additional Instructions: Patient Education CV - Cardiovascular Discharge Instructions (CUSTOM)[facility] Comment on above:Result Comment: Electronically Signed By: DAVONTE FISH, Pedro\.br\Date and Time Signed: 07/08/22 09:40 [id number] Note [id number]:127[facility] 07-02-2022 NoteBasic Information Accompanied by: No Accompaniment [...] artery disease (I25.10: Atherosclerotic heart disease of [place] coronary artery withoutangina pectoris) - stable, continue [...] diabetes mellitus Pseudophakia Thr (more content not included)...[facility] HospitalComment on above: Result Comment: Electronically Signed By: DAVONTE FISH, Pedro\.br\Date and Time Signed: 07/02/22 17:10 [id number] Hospital Discharge instructions Patient Education 03/15/2022 14:06:07 [...] relax (sedative) during your procedure. Medicines Take yrtk-ymq-hpbrciw and prescription medicines only as told by your health care provider. Puncture site care Follow instructions from your health care provider about how to take care of the site where catheters were inserted. Make sure you: ?Wash your hands with soap and water before you change your bandage (dressing). If soap and water are not available, use hand supervisor alum plant. ?Change your dressing as told by your [...] told by your health care provider. Take gnhe-mpf-goopwti and prescription medicines only as told by [...] 06/14/2014 Document Revised: 02/28/2018 Document Reviewed: 02/28/2018 [employer] Patient Education 2020 [employer] Follow Up Care 03/15/2022 11:30:19 With:Greg Alarcon Address: [address] [place], [place] [address] [address] [facility] (1) When: Unknown Comments:as needed [facility]02-02-2023 Evaluation + Plan noteExtracted from: Title:Procedure Note [...] Oxygen Protocol Patient Education Saline Lock Insert [facility]09-22-2022 Hospital Discharge instructions Patient Education 11/02/2021 13:11:32 [...] relax (sedative) during your procedure. Medicines Take vqwh-qoa-jvnjhyk and prescription medicines only as told by your health care provider. Puncture site care Follow instructions from your health care provider about how to take care of the site where catheters were inserted. Make sure you: ?Wash your hands with soap and water before you change your bandage (dressing). If soap and water are not available, use hand supervisor alum plant. ?Change your dressing as told by your [...] told by your health care provider. Take hxza-icr-wxnfthb and prescription medicines only as told by [...] 06/14/2014 Document Revised: 02/28/2018 Document Reviewed: 02/28/2018 [employer] Patient Education 2020 [employer]. Follow Up Care 10/27/2021 08:22:09 With:Greg Alarcon Address: [address] [place] [address] Business (1) When: Unknown Comments:Call for followup appointment if needed With:Nav Alejo Address: [address] [place] [address] Business (1) When: Unknown [facility] No data available for this section [facility] Future Appointments Appointment Date:08/06/2022 10:00:00 AM Scheduled Provider:Dorian FISH, Greg Lopez Location[facility] Appointment Type:[facility]ascular [facility] (FT) [facility] Future Appointments Appointment Date:07/16/2022 12:00:00 PM Scheduled Provider: Location:[facility] Appointment Type:Surgery FT [facility] Future Appointments Appointment Date:06/18/2023 01:00:00 PM Scheduled Provider: Location:.ULTRASOUND Appointment Type:US Duplex Procedures (FT) Future Scheduled Tests Radiology* US PVR Lower EXT Complete Bilat 06/18/23 [facility]* Diagnosis Arteriosclerotic heart disease Coronary atherosclerosis of unspecified type of vessel, [place] or graft S/P PTCA (percutaneous transluminal coronary angioplasty) Postsurgical percutaneous transluminal coronary angioplasty status ESRD (end stage renal disease) on dialysis ([facility]) End stage renal disease Diabetes mellitus of other type without complication, unspecified whether terminal carman insulin use ([facility]) Essential hypertension Unspecified essential hypertension Hyperlipidemia, unspecified hyperlipidemia type Never smoked any substance documented in this encounter [facility] Work Phone: Evaluation note* Diagnosis Onset [...] arthritis of left foot acute Diabetes mellitus [facility] Work Phone: Evaluation note* Diagnosis Onset Date [...] Type 2 diabetes mellitus with hyperglycemia acute [facility] Work Phone: Evaluation note* Diagnosis [...] acute Diabetes mellitus with diabetic neuropathy acute [id number] acute ESRD (end stage renal disease) acute Fever acute Osteomyelitis acute Peripheral arterial disease acute PVD (peripheral vascular disease) acute Secondary hyperparathyroidism acute Septic shock acute Severe sepsis acute Type 2 diabetes mellitus wit h diabetic chronic kidney disease acute Ulcer of foot acute Ventricular bigeminy acute Diabetes mellitus chronic [facility] Work Phone: History and physical note Author Gabriel Gould [facility] June 21, 2023 10:20pm Note Date/Time June 21, 2023 9:30p [facility] [address] [place] [address] Hospitalist H&P Signed Patient: Seth Murphy MR#: [id number] : 1955 Acct:[id number] Age/Sex: 67 / M Adm Date: 4 Loc: Room: [address] [place] [address] Type: ADM IN Attending Dr: Gabriel Gould [...] the past couple of days and his painter ski edge subsequently told him to come to the hospital. Chest x-ray performed emergency room shows worsening osteomyelitis of the left great toe involving the sesamoids, distal first metatarsal, and proximal phalanx of the great toe. She received a dose ofIV vancomycin and was subsequent admitted to the hospital. [facility] Medical History (Updated 05/09/23 @ 13:26 by Alfreod Acosta MD) Vitamin D deficiency Venous stasis [...] % (Auto) 7.5 % (.) 06/21/23 19:35 [place] % (Auto) 16.2 % (.) 06/21/23 19:35 Eos % (Auto) 1.1 % (.) 06/21/23 19:35 Baso % (Auto) 0.6 % (.) 06/21/23 19:35 Nucleat RBC Rel Count 0.1 /100 WBC (0-0.5) 06/21/23 19:35 Neut # (Auto) 5.4 x10E3/uL (1.8-7.7) 06/21/23 19:35 Lymph # (Auto) 0.5 x10E3/uL (1.00-4.8) L 06/21/23 19:35 [place] # (Auto) 1.2 x10E3/uL (0.0-0.8) H 06/21/23 [...] <Electronically signed by Gabriel Gould DO> 06/21/232219 [facility] Work Phone: History general Narrative [...] LEG 2010 Hospitalization History Heart attack 04-16-18 Index Other Hospital Discharge instructions No data available for this section [facility] No data available for this section [facility] (narrative)* Consultation (Routine) - Authorized Specialty Diagnoses / Procedures Referred By Khadijah tamayo Referred To Contact Cardiology Diagnoses Arteriosclerotic heart disease Procedures Follow Up In Cardiology Seth Ying DO [address] [address], [address] [address] Seth Ying DO [address] [place] [address] 2, [address] [address] Referral ID Status Reason Start Date Expiration Date V isits Requested Visits Authorized [id number] Authorized 01/31/2023 01/31/2024 1 1 [facility] Work Phone: Summary Purpose Family [...] infection with prolonged intubation and hospitalization in [place] with multiorgan failure details of which have [...] He has a history of ASHD with POSTDOCTORAL RESEARCH FELLOW intervention of the LAD in April 2018 [...] bilateral feet wounds bilateral feet wounds [facility] 04/16/23 Reason for Visit Anemia [...] bilateral feet wounds bilateral feet wounds [facility] 04/16/23 L foot wound, hx [...] lower extremity Diabetes mellitus with diabetic neuropathy [id number] ESRD (end stage renal disease) Fever Osteomyelitis [...] section and content) DATE CREATED AUTHOR 09/03/2019 [facility] DATE CREATED AUTHOR AUTHOR'S ORGANIZ ATION 05/19/2020 [facility] DATE CREATED AUTHOR AUTHOR'S ORGANIZ ATION 10/21/2020 [facility] DATE CREATED AUTHOR AUTHOR'S ORGANIZ ATION 01/12/2022 [employer] DATE CREATED AUTHOR AUTHOR'S ORGANIZ ATION 05/19/2022 [facility] DATE CREATED AUTHOR AUTHOR'S ORGANIZ ATION 06/20/2022 [facility] DATE CREATED AUTHOR AUTHOR'S ORGANIZ ATION 11/24/2022 [facility] DATE CREATED AUTHOR AUTHOR'S ORGANIZ ATION 02/03/2023 [facility] DATE CREATED AUTHOR AUTHOR'S ORGANIZ ATION 03/24/2023 [facility] DATE CREATED AUTHOR AUTHOR'S ORGANIZ ATION 06/23/2023 Naylor Julio [facility] DATE CREATED AUTHOR AUTHOR'S ORGANIZ ATION 08/31/2023 [facility] EPIC DATE CREATED AUTHOR AUTHOR'S ORGANIZ ATION 09/05/2023 [facility] ys[facility] Care Team (unrecognized sect ion and content) Estate Conservator Relationship Specialty Start Date End Date Nav Alejo MD [address] [phone] PCP - General 05/22/18 Team Status: Active [...] Nunez MD Other Provider Active Start: [facility] 2023 End: April 16, 2023 Guicho Chun MD Other Provider Active Start: April 09, 2023 End: April 16, 2023 Alfredo Acosta MD Other Provider Active Start: April 09, 2023 End: April 16, 2023 Felisa Win DPM Other Provider Active [...] Provider Active Start: April 10, 2023 Guicho Chnu MD Other Provider Active Start: April 10, 2023 Alfredo Acosta MD Other Provider Active Start: April 10, 2023 Felisa Wni DPM Other Provider Active Star t: April [...] Other Provider Active Start: August 30, 2023 Rmoeo Pop DPM Other Provider Active Sta rt: August 30, 2023 Uriah Espinal MD Attending Provider Active S tart: August 30, 2023 Team Status: Active Member Role Status Dates Nav Alejo MD Primary Care Provider Active Start: September 02, 2023 Alon Santiago MD Admit Provider Active Sta rt: September 02, 2023 Alfredo Acosta MD Other Provider Active Start: September 02, 2023 Marina Agudelo MD Other [...] BE BASED ON THE PRIMARY CLINICAL RECORDS. [facility] [employer] [facility]. provides no warranty or guarantee of the accuracy or completeness of information in this document.
[2023-09-20 09:04] LABS: Estimated GFR (African America 9 (>=60); Estimated GFR (Non-African Ame 8 (>=60); Vancomycin Trough 5.2 ug/mL (5.0-20.0)
== END 2023-09-20 01:26 | disposition home or self-care (01) ==
LOC: LAB 01:25
PROVIDERS: PCP Family Medicine
DX: Z79.2 Long term (current) use of antibiotics (principal)
CPT/HCPCS: 36415; 80202; 82565; 84520

== ENCOUNTER 2023-09-23 12:48 | Outpatient (REF) | payer MEDICARE, SELFPAY | END 2023-09-23 12:49 | disposition home or self-care (01) | LOC: LAB 12:48 | PROVIDERS: PCP Family Medicine; Visit Provider Internal Medicine Nephrology | DX: E87.5 Hyperkalemia (principal) | CPT/HCPCS: 36415; 84132 ==

== ENCOUNTER 2023-09-25 13:39 | Outpatient (OUT) | payer MEDICARE, SELFPAY | END 2023-09-25 13:40 | disposition home or self-care (01) | LOC: PST 13:39 | PROVIDERS: PCP Family Medicine; Visit Provider Student in an Organized Health Care Education/Training Program | DX: Z01.818 Encounter for other preprocedural examination (principal); N28.9 Disorder of kidney and ureter, unspecified ==

== ENCOUNTER 2023-09-26 10:20 | Day surgery (SDC) | payer MEDICARE, SELFPAY ==
--- NOTE | 2023-09-26 10:30 | XR_ITS ---
[address] [address] Patient Name: SETH MURPHY MRN: [id number] date: 1955 Sex: M Assigned Patient Location: SURGOUT [facility] Accession/Order Number: [id number] Exam Date: 09/26/2023 10:27 Report Date: 09/26/2023 10:59 At the request of: GREG MESSINA Procedure: XR chest 2V EXAMINATION: XR chest 2V HISTORY: preop and for PICC placement identification COMPARISON: XR chest 08/25/2023, 04/03/2019 FINDINGS: LUNGS: Chronic elevation left hemidiaphragm. No acute infiltrates. VASCULATURE: No increased pulmonary vasculature. PLEURA: No pneumothorax, effusion, or pleural thickening. CARDIAC: No cardiomegaly or cardiac silhouette abnormality. MEDIASTINUM: No visible mass or adenopathy. BONES: No acute fracture or visible bone lesion. OTHER: Left PICC line with tip within mid left subclavian vein. XR/XR chest 2V IMPRESSION: 1. Left PICC line tip is within mid left subclavian vein. Consider advancing approximately 15 cm and reimaging 2. No acute cardiopulmonary process. 3. Chronic elevation left hemidiaphragm. Electronically authenticated by: WING VALDEZ Date: 09/26/2023 10:59
[2023-09-26 10:54] LABS: Basophils Absolute Auto 0.1 10^3/uL (0.0-0.1); Basophils Percent Auto 1.4 % (0.2-2.0); Eosinophils Absolute Auto 0.2 10^3/uL (0.0-0.7); Eosinophils Percent Auto 3.9 % (0.9-7.0); Hematocrit 33.4 % (42.0-54.0); Hemoglobin 10.5 g/dL (14.0-18.0); Lymphocytes Absolute Auto 1.1 10^3/uL (1.2-3.8); Lymphocytes Percent Auto 21.8 % (20.5-60.0); Mean Corpuscular HGB Conc 31.4 g/dL (29.9-35.2); Mean Corpuscular Hemoglobin 29.2 pg (25.9-34.0); Mean Platelet Volume 10.7 fL (9.5-13.5); Monocytes Absolute Auto 0.9 10^3/uL (0.3-0.8); Monocytes Percent Auto 18.6 % (1.7-12.0); Neutrophils Absolute Auto 2.6 10^3/uL (1.4-6.5); Neutrophils Percent Auto 52.3 % (43.0-75.0); Platelet Count 142 10^3/uL (150-450); Red Blood Count 3.59 10^6/uL (4.70-6.10); Red Cell Distribution Width 17.2 % (11.0-15.0); White Blood Count 4.9 10^3/uL (4.0-11.0)
[2023-09-26 10:56] LABS: Anion Gap 12.6; BUN Creatinine Ratio 6.5; Calcium 9.4 mg/dL (8.5-10.1); Carbon Dioxide 28.5 mmol/L (21.0-32.0); Chloride 94 mmol/L (98-107); Estimated GFR (African America 11 (>=60); Estimated GFR (Non-African Ame 9 (>=60); Glucose 147 mg/dL (74-106); Potassium 5.1 mmol/L (3.5-5.1); Sodium 130 mmol/L (136-145)
[2023-09-26 10:58] LABS: INR 1.08; Partial Thromboplastin Time 29.1 sec (22.3-36.2); Prothrombin Time 11.4 sec (9.0-11.6)
--- NOTE | 2023-09-26 11:16 | PC.NURSE ---
1116: pt told the engineering writer that he had a pb&j approximately [id number] this morning by the staff at [facility]. anesthesia and made aware of the situation, pt will be rescheduled due to him eating this morning. Isabella Trejo RN spoke with staff at the senior care regarding pt status and that he would be returning to their facility.
== END 2023-09-26 11:10 | disposition home or self-care (01) ==
LOC: SURGOUT 10:21
PROVIDERS: PCP Family Medicine; Visit Provider Student in an Organized Health Care Education/Training Program
DX: N18.6 End stage renal disease (principal); Z53.8 Procedure and treatment not carried out for other reasons
CPT/HCPCS: 36415; 71046; 80048; 85025; 85610; 85730

== ENCOUNTER 2023-09-27 03:08 | Outpatient (RCR) | payer MEDICARE, SELFPAY ==
[2023-09-27 19:05] LABS: Estimated GFR (African America 16 (>=60); Estimated GFR (Non-African Ame 13 (>=60); Vancomycin Trough 4.1 ug/mL (5.0-20.0)
== END 2023-10-12 23:59 | disposition home or self-care (01) ==
LOC: LAB 03:08
PROVIDERS: PCP Family Medicine; Visit Provider Nurse Practitioner Family
DX: A41.02 Sepsis due to Methicillin resistant Staphylococcus aureus (principal); Z51.81 Encounter for therapeutic drug level monitoring
CPT/HCPCS: 36415; 80202; 82565; 84520

== ENCOUNTER 2023-09-30 14:15 | Outpatient (REF) | payer MEDICARE, SELFPAY ==
[2023-09-30 14:38] LABS: Potassium 4.3 mmol/L (3.5-5.1)
== END 2023-09-30 14:16 | disposition home or self-care (01) ==
LOC: LAB 14:15
PROVIDERS: PCP Family Medicine; Visit Provider Internal Medicine Nephrology
DX: E87.5 Hyperkalemia (principal)
CPT/HCPCS: 36415; 84132

== ENCOUNTER 2023-10-04 02:14 | Outpatient (RCR) | payer MEDICARE, SELFPAY ==
[2023-10-04 08:20] LABS: Estimated GFR (African America 8 (>=60); Estimated GFR (Non-African Ame 7 (>=60)
[2023-10-04 09:10] LABS: Vancomycin Trough 21.7 ug/mL (5.0-20.0)
== END 2023-10-12 23:59 | disposition home or self-care (01) ==
LOC: LAB 02:14
PROVIDERS: PCP Family Medicine; Visit Provider Family Medicine
DX: Z51.81 Encounter for therapeutic drug level monitoring (principal); Z79.2 Long term (current) use of antibiotics
CPT/HCPCS: 36415; 80202; 82565; 84520

== ENCOUNTER 2023-10-04 17:04 | Outpatient (OUT) | payer MEDICARE, SELFPAY ==
[2023-10-04 18:28] LABS: Estimated GFR (African America 16 (>=60); Estimated GFR (Non-African Ame 13 (>=60)
== END 2023-10-04 17:05 | disposition home or self-care (01) ==
LOC: LAB 17:06
PROVIDERS: PCP Family Medicine; Visit Provider Family Medicine
DX: Z51.81 Encounter for therapeutic drug level monitoring (principal); N18.6 End stage renal disease
CPT/HCPCS: 36415; 80202; 82565; 84520

== ENCOUNTER 2023-10-15 14:38 | Outpatient (OUT) | payer MEDICARE, SELFPAY | END 2023-10-15 14:39 | disposition home or self-care (01) | LOC: WC 14:38 | PROVIDERS: PCP Family Medicine; Visit Provider Physician Assistant | DX: E11.621 Type 2 diabetes mellitus with foot ulcer (principal); L97.511 Non-pressure chronic ulcer of other part of right foot limited to breakdown of skin; L97.521 Non-pressure chronic ulcer of other part of left foot limited to breakdown of skin; L97.528 Non-pressure chronic ulcer of other part of left foot with other specified severity | CPT/HCPCS: 15275; Q4196 ==

== ENCOUNTER 2023-10-16 03:22 | Outpatient (RCR) | payer MEDICARE, SELFPAY | END 2023-11-11 12:48 | disposition home or self-care (01) | LOC: LAB 03:22 | PROVIDERS: PCP Family Medicine; Visit Provider Family Medicine | DX: N18.6 End stage renal disease (principal); Z51.81 Encounter for therapeutic drug level monitoring; A41.9 Sepsis, unspecified organism | CPT/HCPCS: 80053; 82565; 84484 ==

== ENCOUNTER 2023-10-18 12:58 | Outpatient (REF) | payer MEDICARE, SELFPAY ==
[2023-10-18 14:45] LABS: Potassium 5.2 mmol/L (3.5-5.1)
== END 2023-10-18 12:59 | disposition home or self-care (01) ==
LOC: LAB 12:58
PROVIDERS: PCP Family Medicine; Visit Provider Internal Medicine Nephrology
DX: E87.5 Hyperkalemia (principal)
CPT/HCPCS: 36415; 84132

== ENCOUNTER 2023-10-22 15:20 | Outpatient (OUT) | payer MEDICARE, SELFPAY | END 2023-10-22 15:21 | disposition home or self-care (01) | LOC: WC 15:20 | PROVIDERS: PCP Family Medicine; Visit Provider Physician Assistant | DX: E11.621 Type 2 diabetes mellitus with foot ulcer (principal); L97.511 Non-pressure chronic ulcer of other part of right foot limited to breakdown of skin; L97.528 Non-pressure chronic ulcer of other part of left foot with other specified severity | CPT/HCPCS: 15275; Q4196 ==

== ENCOUNTER 2023-10-29 09:07 | Outpatient (OUT) | payer MEDICARE, SELFPAY | END 2023-10-29 09:08 | disposition home or self-care (01) | LOC: WC 09:08 | PROVIDERS: PCP Family Medicine; Visit Provider Physician Assistant | DX: E11.621 Type 2 diabetes mellitus with foot ulcer (principal); L97.528 Non-pressure chronic ulcer of other part of left foot with other specified severity; L97.511 Non-pressure chronic ulcer of other part of right foot limited to breakdown of skin | CPT/HCPCS: 11042; 15275; Q4196 ==

== ENCOUNTER 2023-11-05 14:23 | Outpatient (OUT) | payer MEDICARE, SELFPAY | END 2023-11-05 14:24 | disposition home or self-care (01) | LOC: WC 14:23 | PROVIDERS: PCP Family Medicine; Visit Provider Physician Assistant | DX: E11.621 Type 2 diabetes mellitus with foot ulcer (principal); L97.511 Non-pressure chronic ulcer of other part of right foot limited to breakdown of skin; L97.528 Non-pressure chronic ulcer of other part of left foot with other specified severity | CPT/HCPCS: 15275; A6213; Q4160 ==

== ENCOUNTER 2023-11-12 16:12 | Outpatient (OUT) | payer MEDICARE, SELFPAY ==
--- OUTSIDE RECORDS SUMMARY | 2023-11-12 16:21 | XMS_ITS | CCD ---
Author Organization [facility] CliniSyaz Care Team Providers Care Cath Lab Radiology Technician Name Role Phone NAV ALEJO Referring Unavailable NAV ALEJO Primary Care Unavailable Laly Amaro Attending Unavailable Laly Amaro Admitting Unavailable Nav Alejo Unavailable Unavailable Unavailable Nav Alejo Primary Care Physician PROVIDER, UNKNOWN Attending Unavailable PROVIDER, UNKNOWN Admitting Unavailable HOBree ., DR MCDANIEL Primary Care Unavailable LAUREN SCHWARZ Attending Unavailable LAUREN SCHWARZ Admitting Unavailable HIGHLANDERLAUREN Admitting Unavailable HIGHLANDERLAUREN Attending Unavailable HOY ., DR MCDANIEL Primary Care Unavailable MARANDA TAYLOR Attending Unavailable GAYE, MARANDA Admitting Unavailable HOY [...] Nav Alejo MD Primary Care Provider [phone] SETH YING Attending Unavailable NAV ALEJO Primary Care Unavailable DEIDRE SNADERSON Attending Unavailable SFAELOS, DEIDRE Attending Unavailable SFAELOS DEIDRE Attending Unavailable DORIAN, LUISANAAMED Attending Unavailable DORIAN, MOHAMED Admitting Unavailable DORIAN, MOHAMED Attending Unavailable DORIAN, MOHAMED Admitting Unavailable DORIAN, MOHAMED Attending Unavailable DORIAN, MOHAMED Admitting Unavailable ROSANNE GAMEZ Attending Unavailable CLARISSEELARI DEIDRE Referring Unavailable ROSANNE GAMEZ Referring Unavailable MD Nav Alejo Primary Care Provider DO Ron Levi Emergency Provider DO Gabriel Gould Admit Provider [phone] MD Hilario Nunez Other Provider MD Guicho Chun Other Provider MD Alfredo Acosta Other Provider ISAIAH Win Other Provider MD Alon Santiago Attending Provider [phone] MARIANN Chatman Emergency Provider DO Gabriel Gould Attending Provider [phone] Luisana Alarconamed FElodia Admitting Unavailable Dorian, Mohamed [...] Weinberg Attending Unavailable Reji Azar Attending Unavailable Droian, Mohamed F. Admitting Unavailable Dorian, Mohamed F. [...] Care Provider DO Gabriel Gould Admit Provider [phone] MD Alfredo Acosta Other Provider MD Marina Agudelo Other Provider ISAIAH Jackson Other Provider DO Diony Devi Attending Provider MD Alon Santiago Admit Provider DEMETRIA Jansen Other Provider Unavailable MD Hilario Nunez Other Provider MD Benita Renteria Other Provider ISAIAH Pop Other Provider MD Clay Smith Attending Provider MARIANN Taylor Attending Provider [phone] DORIAN, MOHAMED F Admitting Unavailable DORIAN, MOHAMED F Attending Unavailable ANANYA JELANI Attending Unavailable DORIAN, MOHAMED F Attending Unavailable DORIAN, MOHAMED F Referring Unavailable MD Nav Alejo Primary Care Provider [phone] MD Alfredo Acosta Other Provider MD Marina Agudelo Other Provider DO Ron Levi Emergency Provider Gabriel Gould Admitting Unavailable Diony Devi Attending UnavailNav Rojas Primary Care Unavailable Alfredo Acosta Consulting Unavailable Marina Agudelo Consulting Unavailable Daniel Jackson Consulting Unavailable Ron Levi Attending Unavailable Ron Levi Admitting Unavailable Nav Alejo Primary Care Unavailable Maranda Taylor Admitting Unavailable Maranda Taylor Attending Unavailable Nav Alejo Primary Care Unavailable Daraler, Obaydah M Admitting Unavailable Clay Smith Attending Unavailable Nav Alejo Primary Care Unavailable Alfredo Acosta Consulting Unavailable Marina Agudelo Consulting Unavailable Christi Jansen Consulting Unavailable Shiv, Hilario Consulting Unavailable Benita Renteria Consulting Unavailable Romeo Pop Consulting Unavailable Nav Alejo Primary Care Unavailable Gabriel Gould Admitting Unavailable Shiv, Hilario Consulting Unavailable Daromar, Obaydah M Attending Unavailable Guicho Chun Consulting UnavailAlfredo Albarran Consulting Unavailable Felisa Win Unavailable Unavailable Unavailable Unavailable Allergies Allergy Classification Reported Allergen(s) Allergy Type Date of Onset Reaction(s) Facility (12 sources) Ticagrelor; Translations: [ticagrelor] Drug Allergy 0 Headache, Nausea/vomitin g [facility] (16 sources) Ticagrelor; Translations: [ticagrelor] Drug Allergy 0 Unknown (qualifier value) [facility] Repository (5 sources) Ticagrelor; Translations: [Brilinta TABS] Drug Allergy Nausea, Headache, Other [facility] DO Work Phone: (13 sources) Coban Bandage; Translations: [Coban Bandage] Drug allergy Eruption of skin (disorder) [facility] (4 sources) Angiotensin Converting Enzyme (Gomez) Inhibitors; Translations: [GOMEZ Inhibitors] Allergy to drug (finding) 3 Hypotension [facility] 3 Repository (3 sources) Beta-Adrenergic Joi; Translations: [Beta Adrenergic Blockers] Allergy to drug (finding) [facility] (3 sources) Bandages MISC; Translations: [Bandages MISC] Allergy to drug (finding) Rash [facility] y 250 DO Work Phone: (1 source) Angiotensin-conve rting enzyme inhibitor agent Propensity to adverse reactions 3 Other [facility] Work Phone: (2 sources) Selective beta-2 adrenoceptor stimulants; Translations: [BETA-ADRENERGIC AGENTS] Propensity to adverse reactions 3 [facility] Work Phone: (2 sources) OTHER; Translations: [OTHER] Propensity to adverse reactions (disorder) 3 [facility] Repository (5 sources) Chlorhexidine Drug Allergy 4 Unknown Reaction [facility] (5 sources) coban Allergy to substance 4 Unknown Reaction [facility] Medications Current Medications Medication Drug Class(es) Dates Sig (Normalized) Sig (Original) alteplase (1 source) Cathflo Activase 2 MG as directed Injection Active alteplase (Cathflo Activase) 1 mg/mL injection (1 source) alteplase (Cathflo Activase) 1 mg/mL injection 2 mL (2 mg) by intra-catheter route if needed. 0 Active amLODIPine 2.5 mg oral tablet (9 sources) Dihydropyridine Calcium Channel Joi Start: 09-02-2023 take 2.5 mg by mouth once daily Amlodipine Active 2.5 MG PO Daily September 02, 2023 12:00am Start: 10-07-2019 End: 04-09-2023 take 5 mg by mouth once daily Amlodipine Discontinued 5 MG PO Daily October 07, 2019 12:00am April 09, 2023 4:03pm apixaban 5 mg oral tablet (18 sources) Factor Xa Inhibitor Start: 09-02-2023 take 1 tablet by mouth twice daily Apixaban (Eliquis) 5 mg Tablet Active 5 MG PO Twice daily 60 September 02, 2023 12:00am start 09/04/23 Start: 09-02-2023 End: 09-05-2023 take 2 tablets by mouth twice daily Apixaban (Eliquis) 5 mg tablet Discontinued 10 MG PO Twice daily 6 2 September 02, 2023 12:00am September 05, 2023 12:02am Start: 04-15-2018 End: 10-07-2019 take 1 tablet [...] 1:00am calcium carbonate 1500 mg oral tablet (9 sources) Start: 04-09-2023 take 750 mg by [...] 11-Jan-2022 DO Active cefepime 1000 mg injection (3 sources) Cephalosporin Antibacterial Start: 08-30-2023 take 1 g [...] 1 ml darbepoetin thomas 0.06 mg/ml injection (12 sources) Erythropoiesis-sti mulating Agent Start: 09-02-2023 Darbepoetin [...] Corticosteroid Start: 12-08-2018 FreeStyle Bre 14 Day [place] - (1 source) Start: 04-15-2018 Freestyle Bre [...] ml insulin glargine 100 unt/ml pen injector (10 sources) Insulin Analog Start: 09-02-2023 Insulin Glargi [...] Active insulin lispro 100 unt/ml injectable solution (10 sources) Insulin Analog Start: 07-19-2022 insulin lispro [...] Active liothyronine sodium 0.005 mg oral tablet (6 sources) l-Triiodothyronine Start: 2023 take 5 ug by mouth once daily in the morning Liothyronine Active 5 MCG PO Every morning April 09, 2023 1:00am Start: 11-07-2022 liothyronine ( Cytomel) 5 mcg tablet 1 tablet (5 mcg) once daily. 0 11/07/2022 Active 24 hr metoprolol succinate 25 mg extended release oral tablet (3 sources) beta-Adrenergic Joi Start: 09-02-2023 take 25 mg [...] tablet by mouth once daily. 0 Active Aamkqnsmuqzk-Jspy-Huvzo Acid (Centrum Complete) 18-400 mg-mcg tablet (5 sources) Start : 04-09 take 1 tablet by mouth once daily Mhppckcjtnfy-Sxww-Rcikx Acid (Centrum Complete) 18-400 mg-mcg tablet Active 1 TAB PO Daily April 09, 2023 1:00am Multivitamin/Minerals 27-1 M G (1 source) Multivitamin/Min erals 27-1 MG as directed Orally Active 1 ml paricalcitol 0.005 mg/m l injection (7 sources) Vitamin D3 Analog Start : 09-01 [...] ot-Taking Vancomycin In 0.9 % Sodium Chl (3 sources) Start: 08-30-2023 Vancomycin In 0.9 % Sodium [...] Sig (Original) acetaminophen 325 mg oral tablet (16 sources) Start: 04-09-2023 End: 08-25-2023 take 2 [...] / oxyCODONE hydrochloride 5 mg oral tablet (6 sources) Opioid Agonist Start: 04-09-2023 End: 08-25-2023 take 1 tablet by mouth every six hours Oxycodone-Acetaminophen (Percocet) 5-325 mg tablet Discontinued 1 TAB PO Every 6 hours April 09, 2023 1:00am August 25, 2023 3:09pm take 1 tablet by jus th every six hours as needed oxyCODONE-acetaminophen (Percocet) 5-325 mg tablet Take 1 tablet by mouth every 6 hours if needed for severe pain (7 - 10). 0 Active Albuterol (6 sources) beta2-Adrenergic Agonist Start: 04-15-2018 End: 10-07-2019 [...] mg / clavulanate 125 mg oral tablet (3 sources) Penicillin-class Antibacterial Start: 06-26-2023 End: 08-25-2023 take [...] 2023 1:11pm carvedilol 6.25 mg oral tablet (7 sources) alpha-Adrenergic Joi, beta-Adrenergic Joi Start: 04-15-2018 End: 10-07-2019 take 6.25 mg by mouth twice daily Carvedilol Discontinued 6.25 MG PO Twice daily April 15, 2018 1:00am October 07, 2019 3:16pm take 1 tablet by mouth every twe nty-four hours cefTRIAXone 2000 mg injection (5 sources) Cephalosporin Antibacterial Start: 04-12-2023 End: 06-21-2023 take 2 g intravenously once daily Ceftriaxone Discontinued 2 GM IV Daily 40 April 12, 2023 1:00am June 21, 2023 6:28pm CRP Weekly cobamamide 0.1 mg / vitamin b12 5 mg sublingual tablet (6 sources) Vitamin B12 Start: 04-15-2018 End: 10-07-2019 take 12-5000 tablets under the tongue once daily Cyanocobalamin-C obamamide (B-12 Plus) 5,000-100 mcg Tablet, Sublingual Discontinued 1500 MCG SUBLINGUAL Daily April 15, 2018 1:00am October 07, 2019 3:16pm doxazosin 1 mg oral tablet (20 sources) alpha-Adrenergic Joi Start: 07-09-2019 End: 04-09-2023 take 1 mg by mouth once daily Doxazosin Discontinued 1 MG PO Daily October 07, 2019 12:00am April 09, 2023 4:03pm EMLA CREA (3 sources) EMLA CREA apply 1 hour before dialysis- 3 days weekly Quantity: 0 Refills: 0 Ordered: 11-Jan-2022 DO Active ferrous sulfate 325 mg oral tablet (7 sources) Start: 04-15-2018 End: 10-07-2019 take 1 tablet by mouth once daily Ferrous Sulfate (Iron) 325 mg (65 mg iron) Tablet Discontinued 325 MG PO Daily April 15, 2018 1:00am October 07, 2019 3:16pm glucose 0.4 mg/mg oral gel (5 sources) Start: 04-09-2023 End: 09-02-2023 Dextrose Discontinued 25 GM PO Q15M April 09, 2023 1:00am September 02, 2023 3:56pm until symptoms of low blood sugar are controlled heparin flush 100 units/mL Soln 5 mL (4 sources) Start: 07-19-2022 take 5 mL intravenously every twenty-four hours heparin flush 100 units/mL Soln 5 mL 100 unit(s), IV, q24hr, Follow SNF PICC line flushing policy, # 3 EA, Refills(s) 0 Start Date: 07/19/22 Status: Ordered hydrALAZINE hydrochloride 50 mg oral tablet (15 sources) Arteriolar Vasodilator Start: 10-07-2019 End: 04-09-2023 [...] Ordered labetalol hydrochloride 100 mg oral tablet (6 sources) beta-Adrenergic Joi Start: 10-07-2019 End: 04-09-2023 take 100 mg by mouth twice daily Labetalol Discontinued 100 MG PO Twice daily October 07, 2019 12:00am April 09, 2023 4:03pm levothyroxine sodium 0.1 mg oral tablet (20 sources) l-Thyroxine Start: 10-10-2020 take 1 tablet [...] the morning linezolid 600 mg oral tablet (3 sources) Oxazolidinone Antibacterial Start: 06-26-2023 End: 08-25-2023 take 600 mg by mouth twice daily Linezolid Discontinued 600 MG PO Twice daily June 26, 2023 12:00am August 25, 2023 3:09pm lisinopril 5 mg oral tablet (13 sources) Angiotensin Converting Enzyme Inhibitor Start: 04-17-2018 End: 05-14-2018 take 10 mg by mouth once daily Lisinopril Discontinued 10 MG PO Daily April 17, 2018 4:37pm May 14, 2018 3:16pm Start: 04-15-2018 End: 04-17-2018 take 5 mg by mouth once daily Lisinopril Discontinued 5 MG PO Daily April 15, 2018 1:00am April 17, 2018 4:38pm polyethylene glycol [id number] [id number] mg powder for oral solution (20 sources) Osmotic Laxative Start: 04-09-2023 End: 09-02-2023 [...] 0 Active prasugrel 10 mg oral tablet (7 sources) P2Y12 Platelet Inhibitor Start: 05-14-2018 End: [...] 04-Jan-2021 Complete ticagrelor 90 mg oral tablet (6 sources) Start: 04-17-2018 End: 05-14-2018 take 1 tablet by mouth twice daily Ticagrelor (Brilinta) 90 mg Tablet Discontinued 90 MG PO Twice daily 180 90 April 17, 2018 1:00am May 14, 2018 3:15pm Vitamin B Complex (5 sources) Start: 04-09-2023 End: 06-21-2023 take 1 tablet by mouth once daily Vitamin B Complex Discontinued 1 TAB PO Daily April 09, 2023 1:00am June 21, 2023 10:36pm Start: 04-09-2023 take 1 tablet by mouth once da daiana Vitamin B Complex Active 1 TAB PO Daily April 09, 2023 1:00am Problems Active Problems Problem Classification Problem Date Documented Date Episodic/Chronic Acute myocardial infarction (18 sources) Myocardial infarction in recovery phase; Translations: [Acute non-ST segment elevation myocardial infarction] Onset: 9 07-09-2019 Chronic Administrative/social admission (12 sources) Reduced mobility; Translations: [Patient encounter status] 04-10-2023 Episodic Asthma (1 source) Unspecified asthma, uncomplicated; Translations: [UNSPECIFIED ASTHMA UNCOMPLICATED] Onset: 2 Chronic Cardiac dysrhythmias (14 sources) Ventricular premature beats; Translations: [Other premature [...] [Coronary atherosclerosis of unspecified type of vessel, chalky[place]ik or graft] Onset: 9 07-09-2019 Chronic Coronary atherosclerosis and other heart disease (6 sources) Patient post percutaneous transluminal coronary angioplasty; Translations: [Percutaneous transluminal coronary angioplasty status] Onset: 3 01-31-2023 Episodic Deficiency and other anemia (1 source) Anemia in chronic kidney disease; Translations: [Anemia in chronic kidney disease] Onset: 4 Chronic Deficiency and other anemia (20 sources) Anemia; Translations: [Anemia, unspecified] Onset: 9 07-30-2019 Episodic Deficiency and other anemia (4 sources) Anemia, unspecified; Translations: [Anemia, unspecified] Onset: [...] Episodic Hypertension with complications and secondary hypertension (16 sources) Hypertensive chronic kidney disease with stage 5 chronic kidney disease or end stage renal disease; Translations: [Hypertensive renal disease] Onset: 2 04-24-2023 Chronic Infective arthritis and osteomyelitis (except that caused by tuberculosis or sexually transmitted disease) (20 sources) Acute osteomyelitis of left foot; Translations: [Other acute osteomyelitis, left ankle and foot] Onset: 4 04-24-2023 Chronic Malaise and fatigue (13 sources) Fatigue; Translations: [Asthenia] Onset: 9 07-09-2019 Episodic Nutritional deficiencies (1 source) Vitamin D deficiency; Translations: [Vitamin D deficiency, unspecified] Chronic Other aftercare (1 source) Surgical follow-up; Translations: [Encounter for other specified surgical aftercare] Onset: 3 Episodic Other aftercare (1 source) Long-term current use of insulin; Translations: [USP (current) use of insulin] Episodic Other aftercare (5 sources) Drug therapy finding; Translations: [USP (current) use of antibiotics] 05-09-2023 Episodic Other and ill-defined heart disease (12 sources) Left ventricular hypertrophy Onset: 9 07-09-2019 Chronic Other and ill-defined heart disease (5 sources) Left ventricular cardiac dysfunction; Translations: [Heart disease, unspecified] 04-10-2023 Chronic Other circulatory disease (2 sources) Arteriovenous fistula, acquired; Translations: [Arteriovenous fistula, acquired] Onset: 3 Chronic Other diseases of kidney and ureters (5 sources) Secondary hyperparathyroidism; Translations: [Secondary hyperparathyroidism of renal origin] 04-24-2023 Chronic Other diseases of kidney and ureters (8 sources) Secondary hyperparathyroidism of renal origin; Translations: [Secondary hyperparathyroidism (of renal origin)] Onset: 4 04-16-2023 Chronic Other injuries and conditions due to external causes (5 sources) Local infection of wound; Translations: [Other [...] Episodic Other nutritional; endocrine; and metabolic disorders (13 sources) Obesity; Translations: [Obesity, unspecified] 04-24-2023 Chronic [...] hyperhidrosis, unspecified] Episodic Peripheral and visceral atherosclerosis (15 sources) Peripheral vascular disease, unspecified; Translations: [Bilateral [...] (6 sources) Other specified health status; Translations: [OGMEZ inhibitor intolerance] Onset: 3 12-03-2022 Episodic Residual [...] 3 01-31-2023 Episodic Septicemia (except in labor) (10 sources) Septic shock; Translations: [Sepsis, unspecified organism] Onset: 4 08-27-2023 Episodic Shock (1 source) Severe sepsis with septic shock; Translations: [Severe sepsis with septic shock] Onset: 4 Episodic Skin and subcutaneous tissue infections (20 sources) Cellulitis, unspecified; Translations: [Cellulitis of left [...] Problem Classification Problem Date Documented Date Episodic/Chronic Bacterial infection; unspecified site (13 sources) Bacteremia; Translations: [Methicillin resistant Staphylococcus aureus infection as the cause of diseases classified elsewhere] Onset: 04-09-2023 Episodic Cardiac dysrhythmias (15 sources) Palpitations; Translations: [Bradycardia, unspecified] Onset: 05-06-2018 07-30-2019 Episodic Complication of device; implant or graft (2 sources) Infection and inflammatory reaction due to other cardiac and vascular devices, implants and grafts, subsequent encounter; Translations: [Infection and inflammatory reaction due to other cardiac and vascular devices, implants and grafts, initial encounter] Onset: 07-12-2022 Episodic Fluid and electrolyte disorders (8 sources) Hyperkalemia; Translations: [Hyperkalemia] Onset: 04-09-2023 04-24-2023 Episodic Genitourinary symptoms and ill-defined conditions (13 sources) Dysuria; Translations: [Albuminuria ] Onset: 05-06-2018 07-09-2019 Episodic Heart valve disorders (1 source) Other abnormalities of heart beat; Translations: [OTHER ABNORMALITIES OF HEART BEAT] Onset: 08-29-2021 Episodic Infective arthritis and osteomyelitis (except that caused by tuberculosis or sexually transmitted disease) (10 sources) Infective arthritis of left foot; Translations: [Pyogenic arthritis, unspecified] Onset: 04-09-2023 04-24-2023 Episodic Other aftercare (1 source) USP (current) use of insulin; Translations: [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.] Test Name Value Interpretation Reference Range Facility Alanine aminotransferase [En zymatic activity/volume] in Serum or PlasmaOrdered By: Ron Levi on 10-31-2023 ALT [Catalytic activity/Vol] 17 U/L Normal 7-52 [facility] Comment on above: Performed By: #### C BC, CMP, MG ####[place] [id number] [place] [id number] [facility] Albumin [Mass/volume] in Ser um or Plasma by Bromocresol green (BCG) dye binding methoOrdered By: Ron Levi on 10-31-2023 Albumin BCG dye [Mass/Vol] 4.2 g/dL 3.5-5.7 [facility] Alkaline phosphatase [Enzyma tic activity/volume] in Serum or PlasmaOrdered By: Ron Levi on 10-31-2023 ALP [Catalytic activity/Vol] 86 U/L Normal 34-104 [facility] Comment on above: Performed By: #### C BC, CMP, MG ####[address] Aspartate aminotransferase [ Enzymatic activity/volume] in Serum or PlasmaOrdered By: Ron Levi on 10-31-2023 AST [Catalytic activity/Vol] 18 U/L Normal 13-39 [facility] Comment on above: Performed By: #### C BC, CMP, MG ####[place] [id number] [facility] Automated basophil %Ordered By: Ron Levi on 10-31-2023 Basophils/100 WBC (Bld) 1.3 % Normal . [facility] Comment on above: Performed By: #### C BC, CMP, MG ####[place] [id number] [facility] Automated basophil countOrde red By: Ron Levi on 10-31-2023 Basophils (Bld) [#/Vol] 0.1 10*3/uL Normal 0.0-0.2 [facility] Comment on above: Result Comment: PERF ORMED BY:[address] [place], [place] [id number] MEDICAL DIRECTORDEAN MCWILLIAMS M.D. Performed By: #### C BC, CMP, MG ####[place] [id number] [facility] Automated blood monocyte cou ntOrdered By: Ron Levi on 10-31-2023 Monocytes (Bld) [#/Vol] 0.9 10*3/uL High 0.0-0.8 [facility] Comment on above: Performed By: #### C BC, CMP, MG ####[address] Automated eosinophil %Ordere d By: Ron Levi on 10-31-2023 Eosinophils/100 WBC (Bld) 1.9 % Normal . [facility] Comment on above: Performed By: #### C BC, CMP, MG ####[address] Automated eosinophil countOr dered By: Ron Levi on 10-31-2023 Eosinophils (Bld) [#/Vol] 0.1 10*3/uL Normal 0.0-0.45 [facility] Comment on above: Performed By: #### C BC, CMP, MG ####[address] Automated monocyte %Ordered By: Ron Levi on 10-31-2023 Monocytes/100 WBC (Bld) 17.0 % Normal . [facility] Comment on above: Performed By: #### C BC, CMP, MG ####[address] Automated neutrophil %Ordere d By: Ron Levi on 10-31-2023 Neutrophils/100 WBC (Bld) 56.6 % Normal . [facility] Comment on above: Performed By: #### C BC, CMP, MG ####[address] Bilirubin.total [Mass/volume ] in Serum or PlasmaOrdered By: Ron Levi on 10-31-2023 Bilirubin [Mass/Vol] 0.7 mg/dL Normal 0.3-1.0 [facility] Comment on above: Performed By: #### C BC, CMP, MG ####[address] Calcium [Mass/volume] in Ser um or PlasmaOrdered By: Ron Levi on 10-31-2023 Calcium [Mass/Vol] 10.4 mg/dL High 8.6-10.3 [facility] Comment on above: Performed By: #### C BC, CMP, MG ####[place] [id number] [facility] Carbon dioxide, total [Moles /volume] in Serum or PlasmaOrdered By: Ron Levi on 10-31-2023 CO2 [Moles/Vol] 27.9 mmol/L Normal 21.0-31.0 [facility] Comment on above: Performed By: #### C BC, CMP, MG ####[address] Chloride [Moles/volume] in S bushra or PlasmaOrdered By: Ron Levi on 10-31-2023 Chloride [Moles/Vol] 93 mmol/L Low 98-107 [facility] Comment on above: Performed By: #### C BC, CMP, MG ####[place] [id number] [facility] Complete Blood Count Auto Di ffon 10-31-2023 Mean Corpuscular HGB Conc 32.7 g/dL Normal 32.5-35.6 [facility] Comment on above: Performed By: #### C BC, CMP, MG ####[place] [id number] [facility] Monocytes/100 WBC (Bld) 18.37 % Normal 0.00-20.00 [facility] Comment on above: Performed By: #### C BC, CMP, MG ####[place] [id number] [facility] NRBC% 0.1 /100{WBC} Normal 0-0.5 [facility] Comment on above: Performed By: #### C BC, CMP, MG ####[place] [id number] [facility] Comprehensive Metabolic Pane raghu 10-31-2023 Albumin [Mass/Vol] 4.2 g/dL Normal 3.5-5.7 [facility] Comment on above: Performed By: #### C BC, CMP, MG ####[address] Creatinine Clr Calc Pharmacy 10.27 Normal [facility] Comment on above: Performed By: #### C BC, CMP, MG ####[address] GFR/1.73 sq M.predicted MDRD (S/P/Bld) [Vol rate/Area] 6.803 mL/min/{1.73_m2} Normal [facility] Comment on above: Performed By: #### C BC, CMP, MG ####[address] Creatinine [Mass/volume] in Serum or PlasmaOrdered By: Ron Levi on 10-31-2023 Creatinine [Mass/Vol] 8.00 mg/dL High 0.70-1.30 [facility] Comment on above: Performed By: #### C BC, CMP, MG ####[address] ECG 12 lead ECGon 10-31-2023 ECG 12 lead ECG Normal [facility] ECG 12 lead ECG Normal [facility] Erythrocyte distribution wid th [Ratio] by Automated countOrdered By: Ron Levi on 10-31-2023 Erythrocyte distribution width (RBC) [Ratio] 18.7 % High 12.0-14.8 [facility] Comment on above: Performed By: #### C BC, CMP, MG ####[address] Erythrocytes [#/volume] in B lood by Automated countOrdered By: Ron Levi on 10-31-2023 RBC (Bld) [#/Vol] 4.82 10*6/uL Normal 3.90-5.60 [facility] Comment on above: Performed By: #### C BC, CMP, MG ####[address] Glucose [Mass/volume] in Ser um or PlasmaOrdered By: Ron Levi on 10-31-2023 Glucose [Mass/Vol] 205 mg/dL High 70-100 [facility] Comment on above: ADA recommended refe rence rangeRandom Glucose Reference Range is dependent on time and content of last meal. Glucose of more than 200 mg/dL in a nonstressed, ambulatory subject supports the diagnosis of Diabetes Mellitus. Result Comment: [place] om Glucose Reference Range is dependent on time and content of last meal. Glucose of more than 200 mg/dL in a nonstressed, ambulatory subject supports the diagnosis of Diabetes Mellitus. ADA recommended reference range Performed By: #### C BC, CMP, MG ####[address] Hematocrit [Volume Fraction] of Blood by Automated countOrdered By: Ron Levi on 10-31-2023 Hematocrit (Bld) [Volume fraction] 44.2 % Normal 38.8-50.0 [facility] Comment on above: Performed By: #### C BC, CMP, MG ####[address] Hemoglobin [Mass/volume] in BloodOrdered By: Ron Levi on 10-31-2023 Hemoglobin (Bld) [Mass/Vol] 14.5 g/dL Normal 13.0-17.0 [facility] Comment on above: Performed By: #### C BC, CMP, MG ####[address] Leukocytes [#/volume] correc jennifer for nucleated erythrocytes in Blood by Automated counOrdered By: Ron Levi on 10-31-2023 WBC corrected for nucl RBC Auto (Bld) [#/Vol] 5.3 10*3/uL 4.1-10.5 [facility] Leukocytes [#/volume] in Blo od by Automated countOrdered By: Ron Levi on 10-31-2023 WBC (Bld) [#/Vol] 5.3 10*3/uL Normal 4.1-10.5 [facility] Comment on above: Performed By: #### C BC, CMP, MG ####[address] Lymphocytes [#/volume] in Bl ood by Automated countOrdered By: Ron Levi on 10-31-2023 Lymphocytes (Bld) [#/Vol] 1.2 10*3/uL Normal 1.00-4.8 [facility] Comment on above: Performed By: #### C BC, CMP, MG ####[place] [id number] Lymphocytes/100 leukocytes i n Blood by Automated countOrdered By: Ron Levi on 10-31-2023 Lymphocytes/100 WBC (Bld) 23.2 % Normal . [facility] Comment on above: Performed By: #### C BC, CMP, MG ####[place] [address] MCH [Entitic mass] by Automa jennifer countOrdered By: Ron Levi on 10-31-2023 MCH (RBC) [Entitic mass] 30.0 pg Normal 27.5-35.2 [facility] Comment on above: Performed By: #### C BC, CMP, MG ####[address] MCHC Auto (RBC) [Mass/Vol]Or dered By: Ron Levi on 10-31-2023 MCHC (RBC) [Mass/Vol] 32.7 g/dL 32.5-35.6 [facility] MCV [Entitic volume] by Auto mated countOrdered By: Ron Levi on 10-31-2023 MCV (RBC) [Entitic vol] 91.8 fL Normal 83.5-101 [facility] Comment on above: Performed By: #### C BC, CMP, MG ####[place] [id number] [facility] Magnesium [Mass/volume] in S bushra or PlasmaOrdered By: Ron Levi on 10-31-2023 Magnesium [Mass/Vol] 2.2 mg/dL Normal 1.9-2.7 [facility] Comment on above: Result Comment: PERF ORMED BY:[place] [address] [place], [place] [phone] MEDICAL DIRECTORDEAN MCWILLIAMS M.D. Performed By: #### C BC, CMP, MG ####[place] [address] Monocyte distribution width [Entitic volume] in Blood by AutomatedOrdered By: Ron Levi on 10-31-2023 Monocyte distribution width Auto (Bld) [Entitic vol] 18.37 % 0.00-20.00 [facility] Neutrophils [#/volume] in Bl ood by Automated countOrdered By: Ron Levi on 10-31-2023 Neutrophils (Bld) [#/Vol] 3.0 10*3/uL Normal 1.8-7.7 [facility] Comment on above: Performed By: #### C BC, CMP, MG ####[address] No Panel InformationOrdered By: Ron Levi on 10-31-2023 Estimated GFR (CKD-EPI) 6.803 mL/Min [facility] Creatinine Clearance (Chem 10.27 [facility] Nucleated erythrocytes [Pres ence] in Blood by Automated countOrdered By: Ron Levi on 10-31-2023 Nucleated RBC Auto Ql (Bld) 0.1 /100{WBC} 0-0.5 [facility] Platelet mean volume [Entiti c volume] in Blood by Automated countOrdered By: Ron Levi on 10-31-2023 Platelet mean volume (Bld) [Entitic vol] 8.2 fL Normal 6.6-10.1 [facility] Comment on above: Performed By: #### C BC, CMP, MG ####[address] Platelets [#/volume] in Bloo d by Automated countOrdered By: Ron Levi on 10-31-2023 Platelets (Bld) [#/Vol] 134 10*3/uL Low 150-450 [facility] Comment on above: Performed By: #### C BC, CMP, MG ####[address] Potassium [Moles/volume] in Serum or PlasmaOrdered By: Ron Levi on 10-31-2023 Potassium [Moles/Vol] 4.5 mmol/L Normal 3.5-5.1 [facility] Comment on above: Performed By: #### C BC, CMP, MG ####[address] Protein [Mass/volume] in Ser um or PlasmaOrdered By: Ron Levi on 10-31-2023 Protein [Mass/Vol] 8.2 g/dL Normal 6.4-8.9 [facility] Comment on above: Performed By: #### C BC, CMP, MG ####[address] Serum globulin measurement b y calculation (mass/volume)Ordered By: Ron Levi on 10-31-2023 Globulin (S) [Mass/Vol] 4.0 g/dL [facility] Comment on above: Performed By: #### C BC, CMP, MG ####[address] Serum or plasma albumin/glob ulin mass ratioOrdered By: Ron Levi on 10-31-2023 Albumin/Globulin [Mass ratio] 1.1 {ratio} [facility] Comment on above: Performed By: #### C BC, CMP, MG ####[address] Serum or plasma anion gap de terminationOrdered By: Ron Levi on 10-31-2023 Anion gap [Moles/Vol] 18.6 mmol/L High 6.0-15.0 [facility] Comment on above: Performed By: #### C BC, CMP, MG ####[address] Sodium [Moles/volume] in Ser um or PlasmaOrdered By: Ron Levi on 10-31-2023 Sodium [Moles/Vol] 135 mmol/L Low 136-145 [facility] Comment on above: Performed By: #### C BC, CMP, MG ####[address] [place] [address] [facility] Troponin I High Sensitivityo n 10-31-2023 Troponin I High Sensitivity 9.2 pg/mL Normal 0.0-20.0 [facility] Comment on above: Result Comment: PERF ORMED BY:[address] [place], [place] [phone] MEDICAL DIRECTORDEAN MCWILLIAMS M.D. Performed By: #### H S TROP ####[place] [address] [place] [address] [facility] Troponin I.cardiac [Mass/vol ume] in Serum or Plasma by Detection limit <= 0.01 ng/Ordered By: Ron Levi on 10-31-2023 Troponin I.cardiac DL <= 0.01 ng/mL [Mass/Vol] 9.2 pg/mL 0.0-20.0 [facility] Urea nitrogen [Mass/volume] in Serum or PlasmaOrdered By: Ron Levi on 10-31-2023 Urea nitrogen [Mass/Vol] 33 mg/dL High 7-25 [facility] Comment on above: Performed By: #### C BC, CMP, MG ####[address] [address] [facility] XR chest 2V*on 10-31-2023 XR chest 2V* Normal [facility] Laboratory - Chemistry and C hemistry - challengeon 10-18-2023 Potassium [Moles/Vol] 5.2 mmol/L High 3.5-5.1 [facility] BASIC METABOLIC PANLon 09-30 Anion gap [Moles/Vol] 13 mmol/L Normal 5-15 [facility] Comment on above: Performed By: #### B MP #### [facility] ([id number]) [address], [address] [place] [address] Calcium [Mass/Vol] 10.1 mg/dL Normal 8.5-10.5 [facility] Comment on above: Performed By: #### B MP #### [facility] ([id number]) [address] [place] [address] Chloride [Moles/Vol] 96 mmol/L Low 98-109 [facility] Comment on above: Performed By: #### B MP #### [facility] ([id number]) [address], [address] [place] [address] CO2 [Moles/Vol] 26 mmol/L Normal 22-32 [facility] Comment on above: Performed By: #### B MP #### [facility] ([id number]) [address] [place] [address] Creatinine [Mass/Vol] 6.14 mg/dL High 0.60-1.30 [facility] Comment on above: Result Comment: METH OD TRACEABLE TO IDMS STANDARD Performed By: #### B MP #### [facility] ([id number]) [address] [address] [place] [address] GFR/1.73 sq M.predicted among non-blacks MDRD (S/P/Bld) [Vol rate/Area] 9 mL/min/{1.73_m2} Low >59 [facility] Comment on above: Result Comment: Reported eGFR is based on the CKD-EPI 2020 equation that does not use a race coefficient. Performed By: #### B MP #### [facility] ([id number]) [address], [address] [place] [address] Glucose [Mass/Vol] 73 mg/dL Normal 65-99 [facility] Comment on above: Performed By: #### B MP #### [facility] ([id number]) [address] [address] [place] [address] Potassium [Moles/Vol] 4.3 mmol/L Normal 3.5-5.0 [facility] Comment on above: Performed By: #### B MP #### [facility] ([id number]) [address] [address] [place] [address] Sodium [Moles/Vol] 135 mmol/L Normal 134-146 [facility] Comment on above: Performed By: #### B MP #### [facility] ([id number]) [address], [address] [place] [address] Urea nitrogen [Mass/Vol] 34 mg/dL High 5-27 [facility] Comment on above: Performed By: #### B MP #### [facility] ([id number]) [address] [place] [address] Glucose Glucometer (BldC) [M ass/Vol]on 10-01-2023 Glucose [Mass/Vol] 77 mg/dL Normal 65-99 [facility] Laboratory - Chemistry and C hemistry - challengeon 09-30-2023 Potassium [Moles/Vol] 4.3 mmol/L 3.5-5.1 [facility] Laboratory - Chemistry and C hemistry - challengeon 09-23-2023 Potassium [Moles/Vol] 6.0 mmol/L High 3.5-5.1 [facility] No Panel InformationOrdered By: Maranda Taylor on 09-19-2023 Miscellaneous Pathology Test See comment [facility] Comment on above: See report. Scanned copy available in EMR. Pathology Request for Lab Co rpon 09-19-2023 Pathology Request for Lab [place] Normal [facility] Comment on above: Order Comment: PATHA OLOGY SKIN SPECIMEN Result Comment: See report. Scanned copy available in EMR.PERFORMED BY:[facility] [place], [place] [phone] MEDICAL DIRECTORDEAN MCWILLIAMS M.D. Performed By: #### P ATH TO [facility] ####[facility] [place] [address] [facility] Albumin [Mass/volume] in Ser um or Plasma by Bromocresol green (BCG) dye binding methoOrdered By: Hilario Nunez on 09-02-2023 Albumin BCG dye [Mass/Vol] 2.9 g/dL Low 3.5-5.7 [facility] Calcium [Mass/volume] in Ser um or PlasmaOrdered By: Hilario Nunez on 09-02-2023 Calcium [Mass/Vol] 9.5 mg/dL Normal 8.6-10.3 [facility] Comment on above: Performed By: #### R REBECCA SALGUERO ####[facility] [place] [id number] [facility] Capillary blood glucose mike urement by glucometer (mass/volume)Ordered By: Clay Smith on 09-02-2023 Glucose [Mass/Vol] 122 mg/dL Normal [facility] Comment on above: Random Glucose Refer ence Range is dependent on time and content of last meal. Glucose of more than 200 mg/dL in a nonstressed, ambulatory subject supports the diagnosis of Diabetes Mellitus. Result Comment: [place] om Glucose Reference Range is dependent on time and content of last meal. Glucose of more than 200 mg/dL in a nonstressed, ambulatory subject supports the diagnosis of Diabetes Mellitus. Performed By: #### G DARLENE ####Point of Care testing, Carbon dioxide, total [Moles /volume] in Serum or PlasmaOrdered By: Hilario Nunez on 09-02-2023 CO2 [Moles/Vol] 24.3 mmol/L Normal 21.0-31.0 [facility] Comment on above: Performed By: #### R REBECCA SALGUERO ####[facility] [place] [id number] [facility] Chloride [Moles/volume] in S bushra or PlasmaOrdered By: Hilario Nunez on 09-02-2023 Chloride [Moles/Vol] 97 mmol/L Low 98-107 [facility] Comment on above: Performed By: #### R REBECCA SALGUERO ####[place] [address] [place] [id number] [facility] Creatinine [Mass/volume] in Serum or PlasmaOrdered By: Hilario Nunez on 09-02-2023 Creatinine [Mass/Vol] 8.73 mg/dL Significan t change up 0.70-1.30 [facility] Comment on above: Delta: 6.97 on 08/31 Performed By: #### R RAVEN SALUGERONO ####[place] [id number] [facility] Erythrocyte distribution wid th [Ratio] by Automated countOrdered By: Hilario Nunez on 09-02-2023 Erythrocyte distribution width (RBC) [Ratio] 18.4 % High 12.0-14.8 [facility] Comment on above: Performed By: #### R RAVEN SALGUERONO ####[place] [id number] [facility] Erythrocytes [#/volume] in B lood by Automated countOrdered By: Hilario Nunez on 09-02-2023 RBC (Bld) [#/Vol] 3.29 10*6/uL Low 3.90-5.60 [facility] Comment on above: Performed By: #### REBECCA PRUITT ####[place] [id number] [facility] Glucose Poct Glucometerson 0 09-02-2023 Commemt1 Glu2: Cleaned Meter Normal [facility] Comment on above: Result Comment: PERF ORMED BY:[place] [address] [address] [place], [place] [phone] MEDICAL DIRECTORDEAN MCWILLIAMS M.D. Performed By: #### G LULS ####Point of Care testing, Commemt1 Glu2: Cleaned Meter Normal [facility] Comment on above: Result Comment: PERF ORMED BY:[address] [place], [place] [phone] MEDICAL DIRECTORDEAN MCWILLIAMS M.D. Performed By: #### G LULS ####Point of Care testing, Glucose [Mass/Vol] 135 mg/dL Normal [facility] Comment on above: Result Comment: [place] Glucose Reference Range is dependent on time and content of last meal. Glucose of more than 200 mg/dL in a nonstressed, ambulatory subject supports the diagnosis of Diabetes Mellitus. Performed By: #### G LULS ####Point of Care testing, Glucose [Mass/volume] in Ser um or PlasmaOrdered By: Hilario Nunez on 09-02-2023 Glucose [Mass/Vol] 128 mg/dL High 70-100 [facility] Comment on above: ADA recommended refe rence rangeRandom Glucose Reference Range is dependent on time and content of last meal. Glucose of more than 200 mg/dL in a nonstressed, ambulatory subject supports the diagnosis of Diabetes Mellitus. Result Comment: [place] Glucose Reference Range is dependent on time and content of last meal. Glucose of more than 200 mg/dL in a nonstressed, ambulatory subject supports the diagnosis of Diabetes Mellitus. ADA recommended reference range Performed By: #### Eri SALGUERO CBCNO ####[address] Hematocrit [Volume Fraction] of Blood by Automated countOrdered By: Hilario Nunez on 09-02-2023 Hematocrit (Bld) [Volume fraction] 29.0 % Low 38.8-50.0 [facility] Comment on above: Performed By: #### RAVEN PRUITTNO ####[address] Hemoglobin [Mass/volume] in BloodOrdered By: Hilario Nunez on 09-02-2023 Hemoglobin (Bld) [Mass/Vol] 9.3 g/dL Low 13.0-17.0 [facility] Comment on above: Performed By: #### Eri SALGUERO CBCNO ####[address] Hemogram CBC Without Diffon 09-02-2023 Mean Corpuscular HGB Conc 32.2 g/dL Low 32.5-35.6 [facility] Comment on above: Performed By: #### RAVEN PRUITTNO ####[address] WBC (Bld) [#/Vol] 8.2 10*3/uL Normal 4.1-10.5 [facility] Comment on above: Performed By: #### Eri SALGUERO CBCNO ####[address] Leukocytes [#/volume] correc jennifer for nucleated erythrocytes in Blood by Automated counOrdered By: Hilario Nunez on 09-02-2023 WBC corrected for nucl RBC Auto (Bld) [#/Vol] 8.2 10*3/uL 4.1-10.5 [facility] MCH [Entitic mass] by Automa jennifer countOrdered By: Hilario Nunez on 09-02-2023 MCH (RBC) [Entitic mass] 28.4 pg Normal 27.5-35.2 [facility] Comment on above: Performed By: #### R JOSE M CBCNO ####[facility] [id number] MCHC Auto (RBC) [Mass/Vol]Or dered By: Hilario Nunez on 09-02-2023 MCHC (RBC) [Mass/Vol] 32.2 g/dL Low 32.5-35.6 [facility] MCV [Entitic volume] by Auto mated countOrdered By: Hilario Nunez on 09-02-2023 MCV (RBC) [Entitic vol] 88.0 fL Normal 83.5-101 [facility] Comment on above: Performed By: #### R JOSE M CBCNO ####[facility] [id number] No Panel InformationOrdered By: Clay Smith on 09-02-2023 Bedside Glucose Comment Glu2: cleaned meter [facility] No Panel InformationOrdered By: Hilario Nunez on 09-02-2023 Estimated GFR (CKD-EPI) 6.126 mL/Min [facility] Creatinine Clearance (Chem 9.90 [facility] Phosphate [Mass/volume] in S bushra or PlasmaOrdered By: Hilario Nunez on 09-02-2023 Phosphate [Mass/Vol] 5.3 mg/dL High 2.5-4.5 [facility] Comment on above: Performed By: #### R JOSE M, CBCNO ####[facility] [id number] Platelet mean volume [Entiti c volume] in Blood by Automated countOrdered By: Hilario Nunez on 09-02-2023 Platelet mean volume (Bld) [Entitic vol] 7.5 fL Normal 6.6-10.1 [facility] Comment on above: Result Comment: PERF ORMED BY:[place] [address] [address] [place], [place] [phone] MEDICAL DIRECTORDEAN MCWILLIAMS M.D. Performed By: #### REBECCA PRUITT ####[address] [address] [facility] Platelets [#/volume] in Bloo d by Automated countOrdered By: Hilario Nunez on 09-02-2023 Platelets (Bld) [#/Vol] 343 10*3/uL Normal 150-450 [facility] Comment on above: Performed By: #### REBECCA PRUITT ####[address] [address] [facility] Potassium [Moles/volume] in Serum or PlasmaOrdered By: Hilario Nunez on 09-02-2023 Potassium [Moles/Vol] 4.9 mmol/L Normal 3.5-5.1 [facility] Comment on above: Performed By: #### REBECCA PRUITT ####[address] [address] [facility] Renal Function Panelon 09-01 Albumin [Mass/Vol] 2.9 g/dL Low 3.5-5.7 [facility] Comment on above: Performed By: #### REBECCA PRUITT ####[address] [address] [facility] Creatinine Clr Calc Pharmacy 9.90 Normal [facility] Comment on above: Result Comment: PERF ORMED BY:[place] [address] [address] [place], [place] [phone] MEDICAL JAKE MCWILLIAMS M.D. Performed By: #### REBECCA PRUITT ####[address] [address] [facility] GFR/1.73 sq M.predicted MDRD (S/P/Bld) [Vol rate/Area] 6.126 mL/min/{1.73_m2} Normal [facility] Comment on above: Performed By: #### R REBECCA SALGUERO ####[place] [address] [place] [id number] [facility] Serum or plasma anion gap de terminationOrdered By: Hilario Nunez on 09-02-2023 Anion gap [Moles/Vol] 14.6 mmol/L Normal 6.0-15.0 [facility] Comment on above: Performed By: #### R RAVEN SALGUERONO ####[address] Sodium [Moles/volume] in Ser um or PlasmaOrdered By: Hilario Nunez on 09-02-2023 Sodium [Moles/Vol] 131 mmol/L Low 136-145 [facility] Comment on above: Performed By: #### R RAVEN SALGUERONO ####[place] [id number] [facility] Urea nitrogen [Mass/volume] in Serum or PlasmaOrdered By: Hilario Nunez on 09-02-2023 Urea nitrogen [Mass/Vol] 32 mg/dL High 7-25 [facility] Comment on above: Performed By: #### R RAVEN SALGUERONO ####[place] [id number] [facility] Anisocytosis [Presence] in B lood by Light microscopyOrdered By: Denice Dahl on 09-01-2023 Anisocytosis Ql (Bld) Moderate Normal [facility] Comment on above: Performed By: #### B MP, DIFF CBC ####[place] [id number] [facility] Basic Metabolic Panelon 08-12 Anion gap [Moles/Vol] 12.4 mmol/L Normal 6.0-15.0 [facility] Comment on above: Performed By: #### B MP, DIFF CBC ####[place] [id number] [facility] Calcium [Mass/Vol] 9.7 mg/dL Normal 8.6-10.3 [facility] Comment on above: Performed By: #### B MP, DIFF CBC ####[address] Chloride [Moles/Vol] 98 mmol/L Normal 98-107 [facility] Comment on above: Performed By: #### B MP, DIFF CBC ####[address] CO2 [Moles/Vol] 28.1 mmol/L Normal 21.0-31.0 [facility] Comment on above: Performed By: #### B MP, DIFF CBC ####[address] Creatinine [Mass/Vol] 6.97 mg/dL High 0.70-1.30 [facility] Comment on above: Performed By: #### B MP, DIFF CBC ####[address] Creatinine Clr Calc Pharmacy 12.26 Normal [facility] Comment on above: Result Comment: PERF ORMED BY:[address] [place], [place] [phone] MEDICAL JAKE MCWILLIAMS M.D. Performed By: #### B MP, DIFF CBC ####[place] [id number] [facility] GFR/1.73 sq M.predicted MDRD (S/P/Bld) [Vol rate/Area] 8.027 mL/min/{1.73_m2} Normal [facility] Comment on above: Performed By: #### B MP, DIFF CBC ####[place] [id number] [facility] Glucose [Mass/Vol] 105 mg/dL Significant change up 70-100 [facility] Comment on above: Result Comment: [place] om Glucose Reference Range is dependent on time and content of last meal. Glucose of more than 200 mg/dL in a nonstressed, ambulatory subject supports the diagnosis of Diabetes Mellitus. ADA recommended reference range Performed By: #### B MP, DIFF CBC ####[address] Potassium [Moles/Vol] 4.5 mmol/L Normal 3.5-5.1 [facility] Comment on above: Performed By: #### B MP, DIFF CBC ####[address] Sodium [Moles/Vol] 134 mmol/L Low 136-145 [facility] Comment on above: Performed By: #### B MP, DIFF CBC ####[address] Urea nitrogen [Mass/Vol] 24 mg/dL Normal 7-25 [facility] Comment on above: Performed By: #### B MP, DIFF CBC ####[address] Basophils Auto (Bld) [#/Vol] Ordered By: Denice Dahl on 09-01-2023 Basophils (Bld) [#/Vol] N/A [facility] Basophils/100 WBC Auto (Bld) Ordered By: Denice Dahl on 09-01-2023 Basophils/100 WBC (Bld) N/A [facility] Basophils/100 leukocytes in Blood by Manual countOrdered By: Denice Dahl on 09-01-2023 Basophils/100 WBC (Bld) 1 % Normal 0-2 [facility] Comment on above: Performed By: #### B MP, DIFF CBC ####[address] Diff and CBCon 09-01-2023 Erythrocyte distribution width (RBC) [Ratio] 18.4 % High 12.0-14.8 [facility] Comment on above: Performed By: #### B MP, DIFF CBC ####[address] Hematocrit (Bld) [Volume fraction] 26.7 % Low 38.8-50.0 [facility] Comment on above: Performed By: #### B MP, DIFF CBC ####[address] Hemoglobin (Bld) [Mass/Vol] 8.9 g/dL Low 13.0-17.0 [facility] Comment on above: Performed By: #### B MP, DIFF CBC ####[place] [id number] [facility] MCH (RBC) [Entitic mass] 29.1 pg Normal 27.5-35.2 [facility] Comment on above: Performed By: #### B MP, DIFF CBC ####[place] [id number] [facility] MCV (RBC) [Entitic vol] 87.3 fL Normal 83.5-101 [facility] Comment on above: Performed By: #### B MP, DIFF CBC ####[address] Mean Corpuscular HGB Conc 33.4 g/dL Normal 32.5-35.6 [facility] Comment on above: Performed By: #### B MP, DIFF CBC ####[address] Metamyelocytes 1 % High 0-0 [facility] Comment on above: Performed By: #### B MP, DIFF CBC ####[place] [id number] [facility] Platelet Estimate Normal Normal Normal [facility] Comment on above: Performed By: #### B MP, DIFF CBC ####[place] [id number] [facility] Platelet mean volume (Bld) [Entitic vol] 7.8 fL Normal 6.6-10.1 [facility] Comment on above: Performed By: #### B MP, DIFF CBC ####[place] [id number] [facility] Platelet Morphology Normal Normal Normal [facility] Comment on above: Result Comment: PERF ORMED BY:[address] [place], [place] [phone] MEDICAL DIRECTORDEAN MCWILLIAMS M.D. Performed By: #### B MP, DIFF CBC ####[place] [address] [place] [address] [facility] Platelets (Bld) [#/Vol] 337 10*3/uL Normal 150-450 [facility] Comment on above: Performed By: #### B MP, DIFF CBC ####[place] [address] [place] [address] [facility] Polychromasia Slight Normal [facility] Comment on above: Performed By: #### B MP, DIFF CBC ####[place] [address] [place] [address] [facility] RBC (Bld) [#/Vol] 3.06 10*6/uL Low 3.90-5.60 [facility] Comment on above: Performed By: #### B MP, DIFF CBC ####[address] [address] [facility] Eosinophils Auto (Bld) [#/Vo l]Ordered By: Denice Dahl on 09-01-2023 Eosinophils (Bld) [#/Vol] N/A [facility] Eosinophils/100 WBC Auto (Bl d)Ordered By: Denice Dahl on 09-01-2023 Eosinophils/100 WBC (Bld) N/A [facility] Eosinophils/100 leukocytes i n Blood by Manual countOrdered By: Denice Dahl on 09-01-2023 Eosinophils/100 WBC (Bld) 3 % Normal 1-3 [facility] Comment on above: Performed By: #### B MP, DIFF CBC ####[address] [address] [facility] Glucose Poct Glucometerson 0 09-01-2023 Glucose [Mass/Vol] 376 mg/dL Normal [facility] Comment on above: Result Comment: [place] Glucose Reference Range is dependent on time and content of last meal. Glucose of more than 200 mg/dL in a nonstressed, ambulatory subject supports the diagnosis of Diabetes Mellitus.PERFORMED BY:[address] [place], [place] [phone] MEDICAL JAKE MCWILLIAMS M.D. Performed By: #### G LULS ####Point of Care testing, Glucose [Mass/Vol] 262 mg/dL Normal [facility] Comment on above: Result Comment: [facility] Glucose Reference Range is dependent on time and content of last meal. Glucose of more than 200 mg/dL in a nonstressed, ambulatory subject supports the diagnosis of Diabetes Mellitus.PERFORMED BY:[address] [place], [place] [phone] MEDICAL DIRECTORDEAN MCWILLIAMS M.D. Performed By: #### G LULS ####Point of Care testing, Glucose [Mass/Vol] 255 mg/dL Normal [facility] Comment on above: Result Comment: [facility] Glucose Reference Range is dependent on time and content of last meal. Glucose of more than 200 mg/dL in a nonstressed, ambulatory subject supports the diagnosis of Diabetes Mellitus.PERFORMED BY:[address] [place], [place] [phone] MEDICAL JAKE MCWILLIAMS M.D. Performed By: #### G LULS ####Point of Care testing, Glucose [Mass/Vol] 88 mg/dL Normal [facility] Comment on above: Result Comment: [facility] Glucose Reference Range is dependent on time and content of last meal. Glucose of more than 200 mg/dL in a nonstressed, ambulatory subject supports the diagnosis of Diabetes Mellitus.PERFORMED BY:[address] [place], [place] [phone] MEDICAL DIRECTORDEAN MCWILLIAMS M.D. Performed By: #### G LULS ####Point of Care testing, Leukocytes [#/volume] in Blo od by Automated countOrdered By: Denice Dahl on 09-01-2023 WBC (Bld) [#/Vol] 8.9 10*3/uL Normal 4.1-10.5 [facility] Comment on above: Performed By: #### B MP, DIFF CBC ####[address] [address] [facility] Lymphocytes Auto (Bld) [#/Vo l]Ordered By: Denice Dahl on 09-01-2023 Lymphocytes (Bld) [#/Vol] N/A [facility] Lymphocytes/100 WBC Auto (Bl d)Ordered By: Denice Dahl on 09-01-2023 Lymphocytes/100 WBC (Bld) N/A [facility] Lymphocytes/100 leukocytes i n Blood by Manual countOrdered By: Denice Dahl on 09-01-2023 Lymphocytes/100 WBC (Bld) 16 % Low 18-42 [facility] Comment on above: Performed By: #### B MP, DIFF CBC ####[facility] [id number] Manual blood segmented neutr ophils/100 leukocytesOrdered By: Denice Dahl on 09-01-2023 Segmented neutrophils/100 WBC (Bld) 71 % High 50-70 [facility] Comment on above: Performed By: #### B MP, DIFF CBC ####[facility] [id number] [place] [address] [place] Metamyelocytes/100 WBC Manua l cnt (Bld)Ordered By: Denice Dahl on 09-01-2023 Metamyelocytes/100 WBC (Bld) 1 % High 0-0 [facility] Monocytes Auto (Bld) [#/Vol] Ordered By: Denice Dahl on 09-01-2023 Monocytes (Bld) [#/Vol] N/A [facility] Monocytes/100 WBC Auto (Bld) Ordered By: Denice Dahl on 09-01-2023 Monocytes/100 WBC (Bld) N/A [facility] Monocytes/100 leukocytes in Blood by Manual countOrdered By: Denice Mei on 09-01-2023 Monocytes/100 WBC (Bld) 6 % Normal 2-11 [facility] Comment on above: Performed By: #### B MP, DIFF CBC ####[facility] [id number] [place] [id number] [place] Neutrophils Auto (Bld) [#/Vo l]Ordered By: Denice Dahl on 09-01-2023 Neutrophils (Bld) [#/Vol] N/A [facility] Neutrophils/100 WBC Auto (Bl d)Ordered By: Denice Dahl on 09-01-2023 Neutrophils/100 WBC (Bld) N/A [facility] Nucleated erythrocytes [Pres ence] in Blood by Automated countOrdered By: Denice Dahl on 09-01-2023 Nucleated RBC Auto Ql (Bld) N/A [facility] Peripheral white blood cell differential % bands, microscopic examOrdered By: Denice Dahl on 09-01-2023 Band form neutrophils/100 WBC (Bld) 2 % Normal 0-5 [facility] Comment on above: Performed By: #### B MP, DIFF CBC ####[facility] [place] [address] [place] Platelet adequacy [Presence] in Blood by Light microscopyOrdered By: Denice Dahl on 09-01-2023 Platelets LM Ql (Bld) Normal Normal [facility] Platelet morphology finding [Identifier] in BloodOrdered By: Denice Dahl on 09-01-2023 Platelet morphology finding Nom (Bld) Normal Normal [facility] Polychromasia [Presence] in Blood by Light microscopyOrdered By: Denice Dahl on 09-01-2023 Polychromasia LM Ql (Bld) Slight [facility] RBC morphologyOrdered By: Ra chioma Dahl on 09-01-2023 RBC morphology finding Nom (Bld) N/A [facility] Glucose Poct Glucometerson 0 08-31-2023 Glucose [Mass/Vol] 400 mg/dL Off scale high Th e [facility] Comment on above: Result Comment: [facility] Glucose Reference Range is dependent on time and content of last meal. Glucose of more than 200 mg/dL in a nonstressed, ambulatory subject supports the diagnosis of Diabetes Mellitus.PERFORMED BY:[facility] [place], [place] [phone] MEDICAL DIRECTORDEAN MCWILLIAMS M.D. Performed By: #### G LULS ####Point of Care testing, Glucose [Mass/Vol] 324 mg/dL Normal [facility] Comment on above: Result Comment: [facility] Glucose Reference Range is dependent on time and content of last meal. Glucose of more than 200 mg/dL in a nonstressed, ambulatory subject supports the diagnosis of Diabetes Mellitus.PERFORMED BY:[place] [address] [address]ERBenson[place]odia[place], [place] [phone] MEDICAL JAKE MCWILLIAMS M.D. Performed By: #### G LULS ####Point of Care testing, Glucose [Mass/Vol] 305 mg/dL Normal [facility] Comment on above: Result Comment: [facility] Glucose Reference Range is dependent on time and content of last meal. Glucose of more than 200 mg/dL in a nonstressed, ambulatory subject supports the diagnosis of Diabetes Mellitus.PERFORMED BY:[address] [place], [place] [phone] MEDICAL JAKE MCWILLIAMS M.D. Performed By: #### G LULS ####Point of Care testing, Glucose [Mass/Vol] 190 mg/dL Normal [facility] Comment on above: Result Comment: [facility] Glucose Reference Range is dependent on time and content of last meal. Glucose of more than 200 mg/dL in a nonstressed, ambulatory subject supports the diagnosis of Diabetes Mellitus.PERFORMED BY:[place] [address] [address] [place], [place] [phone] MEDICAL JAKE MCWILLIAMS M.D. Performed By: #### G LULS ####Point of Care testing, Glucose [Mass/Vol] 310 mg/dL Normal [facility] Comment on above: Result Comment: [facility] Glucose Reference Range is dependent on time and content of last meal. Glucose of more than 200 mg/dL in a nonstressed, ambulatory subject supports the diagnosis of Diabetes Mellitus.PERFORMED BY:[address] [place]odia[place], [place] [phone] MEDICAL JAKE MCWILLIAMS M.D. Performed By: #### G LULS ####Point of Care testing, Alanine aminotransferase [En zymatic activity/volume] in Serum or PlasmaOrdered By: Denice Dahl on 08-30-2023 ALT [Catalytic activity/Vol] 18 U/L Normal -52 [facility] Comment on above: Performed By: #### C BC, CMP ####[address] [address] [facility] Alkaline phosphatase [Enzyma tic activity/volume] in Serum or PlasmaOrdered By: Denice Fariabenson on 08-30-2023 ALP [Catalytic activity/Vol] 49 U/L Normal 34-104 [facility] Comment on above: Performed By: #### C BC, CMP ####[place] [id number] [facility] Aspartate aminotransferase [ Enzymatic activity/volume] in Serum or PlasmaOrdered By: Ljneli Bienvenidobenson on 08-30-2023 AST [Catalytic activity/Vol] 19 U/L Normal 13-39 [facility] Comment on above: Performed By: #### C OXANA, CMP ####[place] [id number] [facility] Bilirubin.total [Mass/volume ] in Serum or PlasmaOrdered By: Denice Bienvenidobenson on 08-30-2023 Bilirubin [Mass/Vol] 0.6 mg/dL Normal 0.3-1.0 [facility] Comment on above: Performed By: #### C OXANA, CMP ####[place] [id number] [facility] Complete Blood Count Auto Di ffon 08-30-2023 Basophils (Bld) [#/Vol] 0.1 10*3/uL Normal 0.0-0.2 [facility] Comment on above: Result Comment: PERF ORMED BY:[address] [place], [place] [phone] MEDICAL JAKE MCWILLIAMS M.D. Performed By: #### C OXANA, CMP ####[place] [id number] [facility] Basophils/100 WBC (Bld) 0.8 % Normal . [facility] Comment on above: Performed By: #### C BC, CMP ####[place] [id number] [facility] Eosinophils (Bld) [#/Vol] 0.3 10*3/uL Normal 0.0-0.45 [facility] Comment on above: Performed By: #### C BC, CMP ####[address] Eosinophils/100 WBC (Bld) 4.5 % Normal . [facility] Comment on above: Performed By: #### C BC, CMP ####[address] Erythrocyte distribution width (RBC) [Ratio] 18.1 % High 12.0-14.8 [facility] Comment on above: Performed By: #### C BC, CMP ####[address] Hematocrit (Bld) [Volume fraction] 28.0 % Low 38.8-50.0 [facility] Comment on above: Performed By: #### C BC, CMP ####[address] Hemoglobin (Bld) [Mass/Vol] 9.2 g/dL Low 13.0-17.0 [facility] Comment on above: Performed By: #### C OXANA, CMP ####[address] Lymphocytes (Bld) [#/Vol] 1.3 10*3/uL Normal 1.00-4.8 [facility] Comment on above: Performed By: #### C BC, CMP ####[address] Lymphocytes/100 WBC (Bld) 20.1 % Normal . [facility] Comment on above: Performed By: #### C BC, CMP ####[address] MCH (RBC) [Entitic mass] 28.5 pg Normal 27.5-35.2 [facility] Comment on above: Performed By: #### C BC, CMP ####[address] MCV (RBC) [Entitic vol] 86.6 fL Normal 83.5-101 [facility] Comment on above: Performed By: #### C BC, CMP ####[address] Mean Corpuscular HGB Conc 32.9 g/dL Normal 32.5-35.6 [facility] Comment on above: Performed By: #### C BC, CMP ####[address] Monocytes (Bld) [#/Vol] 1.0 10*3/uL High 0.0-0.8 [facility] Comment on above: Performed By: #### C OXANA, CMP ####[address] Monocytes/100 WBC (Bld) 16.3 % Normal . [facility] Comment on above: Performed By: #### C OXANA, CMP ####[address] Neutrophils (Bld) [#/Vol] 3.6 10*3/uL Normal 1.8-7.7 [facility] Comment on above: Performed By: #### C OXANA, CMP ####[address] Neutrophils/100 WBC (Bld) 58.3 % Normal . [facility] Comment on above: Performed By: #### C OXANA, CMP ####[address] NRBC% 0.3 /100{WBC} Normal 0-0.5 [facility] Comment on above: Performed By: #### C BC, CMP ####[address] Platelet mean volume (Bld) [Entitic vol] 8.1 fL Normal 6.6-10.1 [facility] Comment on above: Performed By: #### C BC, CMP ####[address] Platelets (Bld) [#/Vol] 216 10*3/uL Normal 150-450 [facility] Comment on above: Performed By: #### C BC, CMP ####[address] RBC (Bld) [#/Vol] 3.23 10*6/uL Low 3.90-5.60 [facility] Comment on above: Performed By: #### C BC, CMP ####[address] WBC (Bld) [#/Vol] 6.3 10*3/uL Normal 4.1-10.5 [facility] Comment on above: Performed By: #### C BC, CMP ####[address] Comprehensive Metabolic Pane raghu 08-30-2023 Albumin [Mass/Vol] 2.6 g/dL Low 3.5-5.7 [facility] Comment on above: Performed By: #### C BC, CMP ####[address] Anion gap [Moles/Vol] 14.1 mmol/L Normal 6.0-15.[address] [facility] Comment on above: Performed By: #### C BC, CMP ####[address] Calcium [Mass/Vol] 9.3 mg/dL Normal 8.6-10.3 [facility] Comment on above: Performed By: #### C BC, CMP ####[address] Chloride [Moles/Vol] 96 mmol/L Low 98-107 [facility] Comment on above: Performed By: #### C BC, CMP ####[address] CO2 [Moles/Vol] 25.2 mmol/L Normal 21.0-31.0 [facility] Comment on above: Performed By: #### C BC, CMP ####[address] [place] [address] [facility] Creatinine [Mass/Vol] 6.91 mg/dL Significan t change up 0.70-1.30 [facility] Comment on above: Performed By: #### C BC, CMP ####[place] [id number] [facility] Creatinine Clr Calc Pharmacy 12.36 Normal [facility] Comment on above: Result Comment: PERF ORMED BY:[address] [place], [place] [phone] MEDICAL DIRECTORDEAN MCWILLIAMS M.D. Performed By: #### C BC, CMP ####[place] [id number] [facility] GFR/1.73 sq M.predicted MDRD (S/P/Bld) [Vol rate/Area] 8.110 mL/min/{1.73_m2} Normal [facility] Comment on above: Performed By: #### C BC, CMP ####[place] [address] [facility] Glucose [Mass/Vol] 246 mg/dL Significant change up 70-100 [facility] Comment on above: Result Comment: [place] Glucose Reference Range is dependent on time and content of last meal. Glucose of more than 200 mg/dL in a nonstressed, ambulatory subject supports the diagnosis of Diabetes Mellitus. ADA recommended reference range Performed By: #### C BC, CMP ####[place] [address] [facility] Potassium [Moles/Vol] 4.3 mmol/L Normal 3.5-5.1 [facility] Comment on above: Performed By: #### C BC, CMP ####[place] [address] [facility] Sodium [Moles/Vol] 131 mmol/L Low 136-145 [facility] Comment on above: Performed By: #### C BC, CMP ####[place] [id number] [facility] Urea nitrogen [Mass/Vol] 22 mg/dL Normal 7-25 [facility] Comment on above: Performed By: #### C BC, CMP ####[address] [address] [facility] Glucose Poct Glucometerson 0 08-30-2023 Commemt1 Normal [facility] Comment on above: Result Comment: Glu2 : WILL NOTIFY DR/RNPERFORMED BY:[address] [place], [place] [phone] MEDICAL DIRECTORDEAN MCWILLIAMS M.D. Performed By: #### G LULS ####Point of Care testing, Glucose [Mass/Vol] 484 mg/dL Off scale high Th e [facility] Comment on above: Result Comment: [place] om Glucose Reference Range is dependent on time and content of last meal. Glucose of more than 200 mg/dL in a nonstressed, ambulatory subject supports the diagnosis of Diabetes Mellitus. Performed By: #### G LULS ####Point of Care testing, Commemt1 Normal [facility] Comment on above: Result Comment: Glu2 : Will Repeat Test Performed By: #### G LULS ####Point of Care testing, Commemt2 WILL NOTIFY DR/LORE Alatorre [facility] Comment on above: Result Comment: PERF ORMED BY:[address] [place], [place] [phone] MEDICAL DIRECTORDEAN MCWILLIAMS M.D. Performed By: #### G LULS ####Point of Care testing, Glucose [Mass/Vol] 466 mg/dL Off scale high Th e [facility] Comment on above: Result Comment: [place] om Glucose Reference Range is dependent on time and content of last meal. Glucose of more than 200 mg/dL in a nonstressed, ambulatory subject supports the diagnosis of Diabetes Mellitus. Performed By: #### G LULS ####Point of Care testing, Commemt1 Normal [facility] Comment on above: Result Comment: Glu2 : Will Repeat Test Performed By: #### G LULS ####Point of Care testing, Commemt2 WILL NOTIFY DR/LORE Alatorre [facility] Comment on above: Result Comment: PERF ORMED BY:[place] [address] [address] [place], [place] [phone] MEDICAL DIRECTORDEAN MCWILLIAMS M.D. Performed By: #### G LULS ####Point of Care testing, Glucose [Mass/Vol] 475 mg/dL Off scale high Th e [facility] Comment on above: Result Comment: [place] om Glucose Reference Range is dependent on time and content of last meal. Glucose of more than 200 mg/dL in a nonstressed, ambulatory subject supports the diagnosis of Diabetes Mellitus. Performed By: #### G LULS ####Point of Care testing, Glucose [Mass/Vol] 529 mg/dL Off scale high Th e [facility] Comment on above: Result Comment: [place] om Glucose Reference Range is dependent on time and content of last meal. Glucose of more than 200 mg/dL in a nonstressed, ambulatory subject supports the diagnosis of Diabetes Mellitus. Performed By: #### G LULS ####Point of Care testing, Glucose [Mass/Vol] 188 mg/dL Normal [facility] Comment on above: Result Comment: [place] om Glucose Reference Range is dependent on time and content of last meal. Glucose of more than 200 mg/dL in a nonstressed, ambulatory subject supports the diagnosis of Diabetes Mellitus.PERFORMED BY:[place] [address] [address] [place], [place] [phone] MEDICAL JAKE MCWILLIAMS M.D. Performed By: #### G LULS ####Point of Care testing, Glucose [Mass/Vol] 221 mg/dL Normal [facility] Comment on above: Result Comment: [place] om Glucose Reference Range is dependent on time and content of last meal. Glucose of more than 200 mg/dL in a nonstressed, ambulatory subject supports the diagnosis of Diabetes Mellitus.PERFORMED BY:[place] [address] [place], [place] [phone] MEDICAL JAKE MCWILLIAMS M.D. Performed By: #### G LULS ####Point of Care testing, No Panel InformationOrdered By: Denice Dahl on 08-30-2023 Bedside Glucose #[address]/lore [facility] Protein [Mass/volume] in Ser um or PlasmaOrdered By: Denice Fariabenson on 08-30-2023 Protein [Mass/Vol] 6.3 g/dL Low 6.4-8.9 [facility] Comment on above: Performed By: #### C BC, CMP ####[place] [address] [place] [id number] [facility] Serum globulin measurement b y calculation (mass/volume)Ordered By: Ljneli Bienvenidobenson on 08-30-2023 Globulin (S) [Mass/Vol] 3.7 g/dL [facility] Comment on above: Performed By: #### C BC, CMP ####[place] [address] [place] [id number] [facility] Serum or plasma albumin/glob ulin mass ratioOrdered By: Denice Mei on 08-30-2023 Albumin/Globulin [Mass ratio] 0.7 {ratio} [facility] Comment on above: Performed By: #### C BC, CMP ####[place] [id number] [facility] Vancomycin [Mass/volume] in Serum or PlasmaOrdered By: Alon Santiago on 08-30-2023 Vancomycin [Mass/Vol] 18.2 ug/mL 5.0-20.0 [facility] Comment on above: Last dose: - Vancomycin,Randomon 08-30-19 24 Vancomycin,Random 18.2 ug/mL Normal 5.0-20.0 [facility] Comment on above: Order Comment: Date of last dose?: [id number] Time of last dose?: 1829 Result Comment: Last dose: -PERFORMED BY:[place] [address] [place], [place] [phone] MEDICAL DIRECTORDEAN MCWILLIAMS M.D. Performed By: #### V ANCR ####[place] [address] [place] [address] [facility] C reactive protein [Mass/vol ume] in Serum or PlasmaOrdered By: Alfredo Acosta on 08-29-2023 CRP [Mass/Vol] 10.2 mg/dL High 0.0-0.5 [facility] C-Reactive Proteinon 024 C-Reactive Protein 10.2 mg/dL High 0.0-0.5 [facility] Comment on above: Result Comment: PERF ORMED BY:[place] [address] [place], [place] [phone] MEDICAL DIRECTORDEAN MCWILLIAMS M.D. Performed By: #### C RP ####[address] [address] [facility] Comprehensive Metabolic Pane raghu 08-29-2023 Albumin [Mass/Vol] 2.6 g/dL Low 3.5-5.7 [facility] Comment on above: Performed By: #### S CAN CBC, CMP ####[place] [id number] [facility] Albumin/Globulin [Mass ratio] 0.8 {ratio} Normal [facility] Comment on above: Performed By: #### S CAN CBC, CMP ####[place] [id number] [facility] ALP [Catalytic activity/Vol] 55 U/L Normal 34-104 [facility] Comment on above: Performed By: #### S CAN CBC, CMP ####[place] [id number] [facility] ALT [Catalytic activity/Vol] 21 U/L Normal 7-52 [facility] Comment on above: Performed By: #### S CAN CBC, CMP ####[place] [id number] [facility] Anion gap [Moles/Vol] 10.9 mmol/L Normal 6.0-15.0 [facility] Comment on above: Performed By: #### S CAN CBC, CMP ####[place] [id number] [facility] AST [Catalytic activity/Vol] 23 U/L Normal 13-39 [facility] Comment on above: Performed By: #### S CAN CBC, CMP ####[place] [id number] [facility] Bilirubin [Mass/Vol] 0.6 mg/dL Normal 0.3-1.0 [facility] Comment on above: Performed By: #### S CAN CBC, CMP ####[address] Calcium [Mass/Vol] 8.7 mg/dL Normal 8.6-10.3 [facility] Comment on above: Performed By: #### S CAN CBC, CMP ####[address] Chloride [Moles/Vol] 95 mmol/L Low 98-107 [facility] Comment on above: Performed By: #### S CAN CBC, CMP ####[address] CO2 [Moles/Vol] 28.8 mmol/L Normal 21.0-31.0 [facility] Comment on above: Performed By: #### S CAN CBC, CMP ####[address] Creatinine [Mass/Vol] 4.98 mg/dL Significan t change up 0.70-1.30 [facility] Comment on above: Performed By: #### S CAN CBC, CMP ####[address] Creatinine Clr Calc Pharmacy 17.24 Normal [facility] Comment on above: Result Comment: PERF ORMED BY:[address] [place], [place] [phone] MEDICAL DIRECTORDEAN MCWILLIAMS M.D. Performed By: #### S CAN CBC, CMP ####[address] GFR/1.73 sq M.predicted MDRD (S/P/Bld) [Vol rate/Area] 12.016 mL/min/{1.73_m2} Normal [facility] Comment on above: Performed By: #### S CAN CBC, CMP ####[address] Globulin (S) [Mass/Vol] 3.2 g/dL Normal [facility] Comment on above: Performed By: #### S CAN CBC, CMP ####[place] [address] [place] [id number] [facility] Glucose [Mass/Vol] 391 mg/dL Significant change up 70-100 [facility] Comment on above: Result Comment: [place] om Glucose Reference Range is dependent on time and content of last meal. Glucose of more than 200 mg/dL in a nonstressed, ambulatory subject supports the diagnosis of Diabetes Mellitus. ADA recommended reference range Performed By: #### S CAN CBC, CMP ####[address] [address] [facility] Potassium [Moles/Vol] 4.7 mmol/L Normal 3.5-5.1 [facility] Comment on above: Performed By: #### S CAN CBC, CMP ####[place] [id number] [facility] Protein [Mass/Vol] 5.8 g/dL Low 6.4-8.9 [facility] Comment on above: Performed By: #### S CAN CBC, CMP ####[place] [address] [facility] Sodium [Moles/Vol] 130 mmol/L Low 136-145 [facility] Comment on above: Performed By: #### S CAN CBC, CMP ####[place] [address] [facility] Urea nitrogen [Mass/Vol] 16 mg/dL Normal 7-25 [facility] Comment on above: Performed By: #### S CAN CBC, CMP ####[address] [address] [facility] Glucose Poct Glucometerson 0 08-29-2023 Glucose [Mass/Vol] 249 mg/dL Normal [facility] Comment on above: Result Comment: [place] om Glucose Reference Range is dependent on time and content of last meal. Glucose of more than 200 mg/dL in a nonstressed, ambulatory subject supports the diagnosis of Diabetes Mellitus.PERFORMED BY:[address] [place], [place] [phone] MEDICAL JAKE MCWILLIAMS M.D. Performed By: #### G LULS ####Point of Care testing, Glucose [Mass/Vol] 300 mg/dL Normal [facility] Comment on above: Result Comment: [place] om Glucose Reference Range is dependent on time and content of last meal. Glucose of more than 200 mg/dL in a nonstressed, ambulatory subject supports the diagnosis of Diabetes Mellitus.PERFORMED BY:[place] [address] [address] [place], [place] [phone] MEDICAL JAKE MCWILLIAMS M.D. Performed By: #### G LULS ####Point of Care testing, Commemt1 Normal [facility] Comment on above: Result Comment: Glu2 : WILL NOTIFY DR/FRANCIERFORMED BY:[place] [address] [address] [place], [place] [phone] MEDICAL JAKE MCWILLIAMS M.D. Performed By: #### G LULS ####Point of Care testing, Glucose [Mass/Vol] 421 mg/dL Off scale high Th e [facility] Comment on above: Result Comment: [place] om Glucose Reference Range is dependent on time and content of last meal. Glucose of more than 200 mg/dL in a nonstressed, ambulatory subject supports the diagnosis of Diabetes Mellitus. Performed By: #### G LULS ####Point of Care testing, Glucose [Mass/Vol] 312 mg/dL Normal [facility] Comment on above: Result Comment: [place] Glucose Reference Range is dependent on time and content of last meal. Glucose of more than 200 mg/dL in a nonstressed, ambulatory subject supports the diagnosis of Diabetes Mellitus.PERFORMED BY:[place] [address] [address] [place], [place] [phone] PAIGE MCWILLIAMS M.D. Performed By: #### G LULS ####Point of Care testing, Glucose [Mass/Vol] 323 mg/dL Normal [facility] Comment on above: Result Comment: [place] Glucose Reference Range is dependent on time and content of last meal. Glucose of more than 200 mg/dL in a nonstressed, ambulatory subject supports the diagnosis of Diabetes Mellitus.PERFORMED BY:[address] [place], [place] [phone] MEDICAL DIRECTORDEAN MCWILLIAMS M.D. Performed By: #### G LULS ####Point of Care testing, Glucose [Mass/Vol] 324 mg/dL Normal [facility] Comment on above: Result Comment: [facility] Glucose Reference Range is dependent on time and content of last meal. Glucose of more than 200 mg/dL in a nonstressed, ambulatory subject supports the diagnosis of Diabetes Mellitus.PERFORMED BY:[address] [place], [place] [phone] MEDICAL DIRECTORDEAN MCWILLIAMS M.D. Performed By: #### G LULS ####Point of Care testing, Microcytes LM Ql (Bld)Ordere d By: Denice Dahl on 08-29-2023 Microcytes Ql (Bld) Slight [facility] Poikilocytosis [Presence] in Blood by Light microscopyOrdered By: Denice Dahl on 08-29-2023 Poikilocytosis LM Ql (Bld) Slight [facility] Scan and CBCon 08-29-2023 Anisocytosis Ql (Bld) Slight Normal [facility] Comment on above: Performed By: #### S CAN CBC, CMP ####[place] [id number] [facility] Basophils (Bld) [#/Vol] 0.0 10*3/uL Normal 0.0-0.2 [facility] Comment on above: Performed By: #### S CAN CBC, CMP ####[place] [id number] [place] Basophils/100 WBC (Bld) 0.8 % Normal . [facility] Comment on above: Performed By: #### S CAN CBC, CMP ####[place] [id number] [facility] Eosinophils (Bld) [#/Vol] 0.1 10*3/uL Normal 0.0-0.45 [facility] Comment on above: Performed By: #### S CAN CBC, CMP ####[address] Eosinophils/100 WBC (Bld) 3.1 % Normal . [facility] Comment on above: Performed By: #### S CAN CBC, CMP ####[address] Erythrocyte distribution width (RBC) [Ratio] 18.2 % High 12.0-14.8 [facility] Comment on above: Performed By: #### S CAN CBC, CMP ####[address] Hematocrit (Bld) [Volume fraction] 27.3 % Low 38.8-50.0 [facility] Comment on above: Performed By: #### S CAN CBC, CMP ####[address] Hemoglobin (Bld) [Mass/Vol] 8.8 g/dL Low 13.0-17.0 [facility] Comment on above: Performed By: #### S CAN CBC, CMP ####[address] Lymphocytes (Bld) [#/Vol] 0.8 10*3/uL Low 1.00-4.8 [facility] Comment on above: Performed By: #### S CAN CBC, CMP ####[address] Lymphocytes/100 WBC (Bld) 15.7 % Normal . [facility] Comment on above: Performed By: #### S CAN CBC, CMP ####[address] MCH (RBC) [Entitic mass] 28.2 pg Normal 27.5-35.2 [facility] Comment on above: Performed By: #### S CAN CBC, CMP ####[address] MCV (RBC) [Entitic vol] 87.2 fL Normal 83.5-101 [facility] Comment on above: Performed By: #### S CAN CBC, CMP ####[address] Mean Corpuscular HGB Conc 32.3 g/dL Low 32.5-35.6 [facility] Comment on above: Performed By: #### S CAN CBC, CMP ####[address] Microcytosis Slight Normal [facility] Comment on above: Performed By: #### S CAN CBC, CMP ####[address] Monocytes (Bld) [#/Vol] 1.2 10*3/uL High 0.0-0.8 [facility] Comment on above: Performed By: #### S CAN CBC, CMP ####[address] Monocytes/100 WBC (Bld) 23.7 % Normal . [facility] Comment on above: Performed By: #### S CAN CBC, CMP ####[address] Neutrophils (Bld) [#/Vol] 2.8 10*3/uL Normal 1.8-7.7 [facility] Comment on above: Performed By: #### S CAN CBC, CMP ####[address] Neutrophils/100 WBC (Bld) 56.7 % Normal . [facility] Comment on above: Performed By: #### S CAN CBC, CMP ####[address] NRBC% 0.1 /100{WBC} Normal 0-0.5 [facility] Comment on above: Performed By: #### S CAN CBC, CMP ####[address] Platelet Estimate Normal Normal Normal [facility] Comment on above: Performed By: #### S CAN CBC, CMP ####[address] Platelet mean volume (Bld) [Entitic vol] 7.9 fL Normal 6.6-10.1 [facility] Comment on above: Performed By: #### S CAN CBC, CMP ####[address] Platelet Morphology Normal Normal Normal [facility] Comment on above: Result Comment: PERF ORMED BY:[address] [place], [place] [phone] MEDICAL JAKE MCWILLIAMS M.D. Performed By: #### S CAN CBC, CMP ####[address] Platelets (Bld) [#/Vol] 234 10*3/uL Normal 150-450 [facility] Comment on above: Performed By: #### S CAN CBC, CMP ####[address] Poikilocytosis Slight Normal [facility] Comment on above: Performed By: #### S CAN CBC, CMP ####[address] RBC (Bld) [#/Vol] 3.13 10*6/uL Low 3.90-5.60 [facility] Comment on above: Performed By: #### S CAN CBC, CMP ####[address] WBC (Bld) [#/Vol] 4.9 10*3/uL Normal 4.1-10.5 [facility] Comment on above: Performed By: #### S CAN CBC, CMP ####[address] XR foot LT 2Von 08-29-2023 XR foot LT 2V Normal [facility] Aerobic Cultureon 08-28-2023 Aerobic Culture Normal [facility] Comment on above: Performed By: #### A ERC ####[address] Aerobic Culture Normal [facility] Comment on above: Performed By: #### A ERC ####[place] [id number] [facility] Banks cells [Presence] in Blo od by Light microscopyOrdered By: Denice Dahl on 08-28-2023 Banks cells LM Ql (Bld) Moderate [facility] Comprehensive Metabolic Pane raghu 08-28-2023 Albumin [Mass/Vol] 3.0 g/dL Low 3.5-5.7 [facility] Comment on above: Performed By: #### D IFF CBC, CMP ####[place] [id number] [facility] Albumin/Globulin [Mass ratio] 0.8 {ratio} Normal [facility] Comment on above: Performed By: #### D IFF CBC, CMP ####[place] [id number] [facility] ALP [Catalytic activity/Vol] 53 U/L Normal 34-104 [facility] Comment on above: Performed By: #### D IFF CBC, CMP ####[place] [id number] [facility] ALT [Catalytic activity/Vol] 25 U/L Normal 7-52 [facility] Comment on above: Performed By: #### D IFF CBC, CMP ####[place] [id number] [facility] Anion gap [Moles/Vol] 14.5 mmol/L Normal 6.0-15.0 Th e [facility] Comment on above: Performed By: #### D IFF CBC, CMP ####[place] [address] [facility] AST [Catalytic activity/Vol] 42 U/L High 13-39 [facility] Comment on above: Performed By: #### D IFF CBC, CMP ####[place] [address] [facility] Bilirubin [Mass/Vol] 0.6 mg/dL Normal 0.3-1.0 [facility] Comment on above: Performed By: #### D IFF CBC, CMP ####[address] [address] [facility] Calcium [Mass/Vol] 9.7 mg/dL Normal 8.6-10.3 [facility] Comment on above: Performed By: #### D IFF CBC, CMP ####[place] [address] [facility] Chloride [Moles/Vol] 97 mmol/L Low 98-107 [facility] Comment on above: Performed By: #### D IFF CBC, CMP ####[place] [address] [facility] CO2 [Moles/Vol] 27.1 mmol/L Normal 21.0-31.0 [facility] Comment on above: Performed By: #### D IFF CBC, CMP ####[place] [address] [facility] Creatinine [Mass/Vol] 7.97 mg/dL Significan t change up 0.70-1.30 [facility] Comment on above: Performed By: #### D IFF CBC, CMP ####[place] [id number] [facility] Creatinine Clr Calc Pharmacy 10.40 Normal [facility] Comment on above: Result Comment: PERF ORMED BY:[address] [place], [place] [phone] MEDICAL JAKE MCWILLIAMS M.D. Performed By: #### D IFF CBC, CMP ####[address] [address] [facility] GFR/1.73 sq M.predicted MDRD (S/P/Bld) [Vol rate/Area] 6.833 mL/min/{1.73_m2} Normal [facility] Comment on above: Performed By: #### D IFF CBC, CMP ####[place] [id number] [facility] Globulin (S) [Mass/Vol] 3.8 g/dL Normal [facility] Comment on above: Performed By: #### D IFF CBC, CMP ####[address] Glucose [Mass/Vol] 61 mg/dL Low 70-100 [facility] Comment on above: Result Comment: [place] Glucose Reference Range is dependent on time and content of last meal. Glucose of more than 200 mg/dL in a nonstressed, ambulatory subject supports the diagnosis of Diabetes Mellitus. ADA recommended reference range Performed By: #### D IFF CBC, CMP ####[address] Potassium [Moles/Vol] 3.6 mmol/L Normal 3.5-5.1 [facility] Comment on above: Performed By: #### D IFF CBC, CMP ####[address] Protein [Mass/Vol] 6.8 g/dL Normal 6.4-8.9 [facility] Comment on above: Performed By: #### D IFF CBC, CMP ####[address] Sodium [Moles/Vol] 135 mmol/L Low 136-145 [facility] Comment on above: Performed By: #### D IFF CBC, CMP ####[place] [id number] [facility] Urea nitrogen [Mass/Vol] 29 mg/dL High 7-25 [facility] Comment on above: Performed By: #### D IFF CBC, CMP ####[address] [address] [facility] Diff and CBCon 08-28-2023 Anisocytosis Ql (Bld) Slight Normal [facility] Comment on above: Performed By: #### D IFF CBC, CMP ####[place] [id number] [facility] Crenated RBC Moderate Normal [facility] Comment on above: Performed By: #### D IFF CBC, CMP ####[place] [id number] [facility] Eosinophils/100 WBC (Bld) 6 % High 1-3 [facility] Comment on above: Performed By: #### D IFF CBC, CMP ####[address] Erythrocyte distribution width (RBC) [Ratio] 18.0 % High 12.0-14.8 [facility] Comment on above: Performed By: #### D IFF CBC, CMP ####[address] Hematocrit (Bld) [Volume fraction] 28.2 % Low 38.8-50.0 [facility] Comment on above: Performed By: #### D IFF CBC, CMP ####[address] Hemoglobin (Bld) [Mass/Vol] 9.4 g/dL Low 13.0-17.0 [facility] Comment on above: Performed By: #### D IFF CBC, CMP ####[address] Lymphocytes/100 WBC (Bld) 13 % Low 18-42 [facility] Comment on above: Performed By: #### D IFF CBC, CMP ####[address] MCH (RBC) [Entitic mass] 28.7 pg Normal 27.5-35.2 [facility] Comment on above: Performed By: #### D IFF CBC, CMP ####[address] MCV (RBC) [Entitic vol] 85.8 fL Normal 83.5-101 [facility] Comment on above: Performed By: #### D IFF CBC, CMP ####[address] Mean Corpuscular HGB Conc 33.4 g/dL Normal 32.5-35.6 [facility] Comment on above: Performed By: #### D IFF CBC, CMP ####[address] Monocytes/100 WBC (Bld) 16 % High 2-11 [facility] Comment on above: Performed By: #### D IFF CBC, CMP ####[place] [id number] [facility] Myelocytes 1 % High 0-0 [facility] Comment on above: Performed By: #### D IFF CBC, CMP ####[place] [id number] [facility] Ovalocytes Slight Normal [facility] Comment on above: Performed By: #### D IFF CBC, CMP ####[place] [id number] [facility] Platelet Estimate Normal Normal Normal [facility] Comment on above: Result Comment: PERF ORMED BY:[address] [place], [place] [phone] MEDICAL DIRECTORDEAN MCWILLIAMS M.D. Performed By: #### D IFF CBC, CMP ####[address] Platelet mean volume (Bld) [Entitic vol] 7.8 fL Normal 6.6-10.1 [facility] Comment on above: Performed By: #### D IFF CBC, CMP ####[place] [id number] [facility] Platelet Morphology Normal Normal Normal [facility] Comment on above: Result Comment: PERF ORMED BY:[address] [place], [place] [phone] MEDICAL DIRECTORDEAN MCWILLIAMS M.D. Performed By: #### D IFF CBC, CMP ####[place] [id number] [facility] Platelets (Bld) [#/Vol] 246 10*3/uL Normal 150-450 [facility] Comment on above: Performed By: #### D IFF CBC, CMP ####[place] [id number] [facility] Poikilocytosis Moderate Normal [facility] Comment on above: Performed By: #### D IFF CBC, CMP ####[address] [address] [facility] Polychromasia Slight Normal [facility] Comment on above: Performed By: #### D IFF CBC, CMP ####[address] [address] [facility] RBC (Bld) [#/Vol] 3.28 10*6/uL Low 3.90-5.60 [facility] Comment on above: Performed By: #### D IFF CBC, CMP ####[address] [address] [facility] Reactive Lymphocytes 3 % Normal 0-12 [facility] Comment on above: Performed By: #### D IFF CBC, CMP ####[address] [address] [facility] Segmented neutrophils/100 WBC (Bld) 62 % Normal 50-70 [facility] Comment on above: Performed By: #### D IFF CBC, CMP ####[address] [address] [facility] WBC (Bld) [#/Vol] 6.1 10*3/uL Normal 4.1-10.5 [facility] Comment on above: Performed By: #### D IFF CBC, CMP ####[address] [address] [address] [facility] Glucose Poct Glucometerson 0 - Commemt1 Normal [facility] Comment on above: Result Comment: Glu2 : WILL NOTIFY DR/RNPERFORMED BY:[address] [place], [place] [phone] MEDICAL DIRECTORDEAN MCWILLIAMS M.D. Performed By: #### G DARLENE ####Point of Care testing, Glucose [Mass/Vol] 419 mg/dL Off scale high Th e [facility] Comment on above: Result Comment: [place] Glucose Reference Range is dependent on time and content of last meal. Glucose of more than 200 mg/dL in a nonstressed, ambulatory subject supports the diagnosis of Diabetes Mellitus. Performed By: #### G LULS ####Point of Care testing, Commemt1 Normal [facility] Comment on above: Result Comment: Glu2 : Will Repeat TestPERFORMED BY:[place] [address] [place], [place] [phone] MEDICAL DIRECTORDEAN MCWILLIAMS M.D. Performed By: #### G LULS ####Point of Care testing, Glucose [Mass/Vol] 435 mg/dL Off scale high Th e [facility] Comment on above: Result Comment: [place] om Glucose Reference Range is dependent on time and content of last meal. Glucose of more than 200 mg/dL in a nonstressed, ambulatory subject supports the diagnosis of Diabetes Mellitus. Performed By: #### G LULS ####Point of Care testing, Glucose [Mass/Vol] 297 mg/dL Normal [facility] Comment on above: Result Comment: [place] om Glucose Reference Range is dependent on time and content of last meal. Glucose of more than 200 mg/dL in a nonstressed, ambulatory subject supports the diagnosis of Diabetes Mellitus.PERFORMED BY:[place] [address] [address], [place] [phone] MEDICAL DIRECTORDEAN MCWILLIAMS M.D. Performed By: #### G LULS ####Point of Care testing, Commemt1 Glu2: Cleaned Meter Normal [facility] Comment on above: Result Comment: PERF ORMED BY:[place] [address] [address] [place], [place] [phone] MEDICAL DIRECTORDEAN MCWILLIAMS M.D. Performed By: #### G LULS ####Point of Care testing, Glucose [Mass/Vol] 79 mg/dL Normal [facility] Comment on above: Result Comment: [place] om Glucose Reference Range is dependent on time and content of last meal. Glucose of more than 200 mg/dL in a nonstressed, ambulatory subject supports the diagnosis of Diabetes Mellitus. Performed By: #### G LULS ####Point of Care testing, Commemt1 Glu2: Cleaned Meter Normal [facility] Comment on above: Result Comment: PERF ORMED BY:[facility] [place], [place] [phone] MEDICAL DIRECTORDEAN MCWILLIAMS M.D. Performed By: #### G LULS ####Point of Care testing, Glucose [Mass/Vol] 66 mg/dL Normal [facility] Comment on above: Result Comment: [facility] Glucose Reference Range is dependent on time and content of last meal. Glucose of more than 200 mg/dL in a nonstressed, ambulatory subject supports the diagnosis of Diabetes Mellitus. Performed By: #### G LULS ####Point of Care testing, Gram stain for investigation of transfusion reactionOrdered By: DAVID Pop on 08-28-2023 Microscopic observation Gram stain Nom (Unsp spec) Pseudomonas aeruginosa Abnormal [facility] Microscopic observation Gram stain Nom (Unsp spec) Methicillin Resis Staph Aureus Abnormal [facility] Myelocytes/100 WBC Manual cn t (Bld)Ordered By: Denice Dahl on 08-28-2023 Myelocytes/100 WBC (Bld) 1 % High 0-0 [facility] Ovalocyte detectionOrdered B y: Denice Dahl on 08-28-2023 Ovalocytes LM Ql (Bld) [facility]light [facility] Variant lymphocytes/100 WBC Manual cnt (Bld)Ordered By: Denice Dahl on 08-28-2023 Variant lymphocytes/100 WBC (Bld) 3 % 0-12 [facility] Comprehensive Metabolic Pane raghu 08-27-2023 Albumin [Mass/Vol] 2.7 g/dL Low 3.5-5.7 [facility] Comment on above: Performed By: #### C MP ####[facility] [place] [address] [facility] Albumin/Globulin [Mass ratio] 0.7 {ratio} Normal [facility] Comment on above: Performed By: #### C MP ####[facility] [place] [address] [facility] ALP [Catalytic activity/Vol] 50 U/L Normal 34-104 [facility] Comment on above: Performed By: #### C MP ####[place] [id number] [facility] ALT [Catalytic activity/Vol] 22 U/L Normal 7-52 [facility] Comment on above: Performed By: #### C MP ####[address] Anion gap [Moles/Vol] 11.1 mmol/L Normal 6.0-15.0 Th e [facility] Comment on above: Performed By: #### C MP ####[address] AST [Catalytic activity/Vol] 44 U/L High 13-39 [facility] Comment on above: Performed By: #### C MP ####[address] Bilirubin [Mass/Vol] 0.6 mg/dL Normal 0.3-1.0 [facility] Comment on above: Performed By: #### C MP ####[address] Calcium [Mass/Vol] 8.9 mg/dL Normal 8.6-10.3 [facility] Comment on above: Performed By: #### C MP ####[address] Chloride [Moles/Vol] 96 mmol/L Low 98-107 [facility] Comment on above: Performed By: #### C MP ####[address] CO2 [Moles/Vol] 29.7 mmol/L Normal 21.0-31.0 [facility] Comment on above: Performed By: #### C MP ####[address] Creatinine [Mass/Vol] 6.05 mg/dL Significan t change up 0.70-1.30 [facility] Comment on above: Performed By: #### C MP ####[address] Creatinine Clr Calc Pharmacy 13.71 Normal [facility] Comment on above: Result Comment: PERF ORMED BY:[address] [place], [place] [phone] MEDICAL DIRECTORDEAN MCWILLIAMS M.D. Performed By: #### C MP ####[place] [id number] [facility] GFR/1.73 sq M.predicted MDRD (S/P/Bld) [Vol rate/Area] 9.513 mL/min/{1.73_m2} Normal [facility] Comment on above: Performed By: #### C MP ####[place] [id number] [facility] Globulin (S) [Mass/Vol] 3.7 g/dL Normal [facility] Comment on above: Performed By: #### C MP ####[address] Glucose [Mass/Vol] 124 mg/dL High 70-100 [facility] Comment on above: Result Comment: [facility] Glucose Reference Range is dependent on time and content of last meal. Glucose of more than 200 mg/dL in a nonstressed, ambulatory subject supports the diagnosis of Diabetes Mellitus. ADA recommended reference range Performed By: #### C MP ####[address] Potassium [Moles/Vol] 3.8 mmol/L Normal 3.5-5.1 [facility] Comment on above: Performed By: #### C MP ####[place] [id number] [facility] Protein [Mass/Vol] 6.4 g/dL Normal 6.4-8.9 [facility] Comment on above: Performed By: #### C MP ####[place] [id number] [facility] Sodium [Moles/Vol] 133 mmol/L Low 136-145 [facility] Comment on above: Performed By: #### C MP ####[place] [id number] [facility] Urea nitrogen [Mass/Vol] 23 mg/dL Normal 7-25 [facility] Comment on above: Performed By: #### C MP ####[address] Diff and CBCon 08-27-2023 Anisocytosis Ql (Bld) Slight Normal [facility] Comment on above: Performed By: #### D IFF CBC, ESR ####[address] Band form neutrophils/100 WBC (Bld) 9 % High 0-5 [facility] Comment on above: Performed By: #### D IFF CBC, ESR ####[address] Basophils/100 WBC (Bld) 1 % Normal 0-2 [facility] Comment on above: Performed By: #### D IFF CBC, ESR ####[address] Crenated RBC Slight Normal [facility] Comment on above: Performed By: #### D IFF CBC, ESR ####[address] Eosinophils/100 WBC (Bld) 1 % Normal 1-3 [facility] Comment on above: Performed By: #### D IFF CBC, ESR ####[address] Erythrocyte distribution width (RBC) [Ratio] 18.1 % High 12.0-14.8 [facility] Comment on above: Performed By: #### D IFF CBC, ESR ####[address] Hematocrit (Bld) [Volume fraction] 27.6 % Low 38.8-50.0 [facility] Comment on above: Performed By: #### D IFF CBC, ESR ####[address] Hemoglobin (Bld) [Mass/Vol] 9.1 g/dL Low 13.0-17.0 [facility] Comment on above: Performed By: #### D IFF CBC, ESR ####[address] Lymphocytes/100 WBC (Bld) 15 % Low 18-42 [facility] Comment on above: Performed By: #### D IFF CBC, ESR ####[address] MCH (RBC) [Entitic mass] 28.5 pg Normal 27.5-35.2 [facility] Comment on above: Performed By: #### D IFF CBC, ESR ####[address] MCV (RBC) [Entitic vol] 86.5 fL Normal 83.5-101 [facility] Comment on above: Performed By: #### D IFF CBC, ESR ####[address] Mean Corpuscular HGB Conc 32.9 g/dL Normal 32.5-35.6 [facility] Comment on above: Performed By: #### D IFF CBC, ESR ####[address] Monocytes/100 WBC (Bld) 24 % High 2-11 [facility] Comment on above: Performed By: #### D IFF CBC, ESR ####[address] Ovalocytes Slight Normal [facility] Comment on above: Performed By: #### D IFF CBC, ESR ####[place] [id number] [facility] Platelet Estimate Normal Normal Normal [facility] Comment on above: Performed By: #### D IFF CBC, ESR ####[address] Platelet mean volume (Bld) [Entitic vol] 8.0 fL Normal 6.6-10.1 [facility] Comment on above: Performed By: #### D IFF CBC, ESR ####[place] [address] Platelet Morphology Normal Normal Normal [facility] Comment on above: Performed By: #### D IFF CBC, ESR ####[place] [id number] [facility] Platelets (Bld) [#/Vol] 238 10*3/uL Normal 150-450 [facility] Comment on above: Performed By: #### D IFF CBC, ESR ####[address] Poikilocytosis Slight Normal [facility] Comment on above: Performed By: #### D IFF CBC, ESR ####[address] Polychromasia Slight Normal [facility] Comment on above: Performed By: #### D IFF CBC, ESR ####[address] RBC (Bld) [#/Vol] 3.19 10*6/uL Low 3.90-5.60 [facility] Comment on above: Performed By: #### D IFF CBC, ESR ####[address] Rouleaux Slight Normal [facility] Comment on above: Performed By: #### D IFF CBC, ESR ####[address] Segmented neutrophils/100 WBC (Bld) 51 % Normal 50-70 [facility] Comment on above: Performed By: #### D IFF CBC, ESR ####[place] [id number] [facility] Tear Drop Cells Slight Normal [facility] Comment on above: Performed By: #### D IFF CBC, ESR ####[address] WBC (Bld) [#/Vol] 6.1 10*3/uL Normal 4.1-10.5 [facility] Comment on above: Performed By: #### D IFF CBC, ESR ####[address] [address] [facility] Erythrocyte Sedimentation Ra kunal 08-27-2023 ESR (Bld) [Velocity] 103 mm/h High 0-19 [facility] Comment on above: Result Comment: PERF ORMED BY:[place] [address] [address], [place] [phone] MEDICAL DIRECTORDEAN MCWILLIAMS M.D. Performed By: #### D IFF CBC, ESR ####[place] [address] [place] [address] [facility] Erythrocyte sedimentation ra te by Photometric methodOrdered By: Denice Dahl on 08-27-2023 ESR Photometric method (Bld) [Velocity] 103 mm/hr High 0-19 [facility] Glucose Poct Glucometerson 0 08-27-2023 Glucose [Mass/Vol] 335 mg/dL Normal [facility] Comment on above: Result Comment: [facility] Glucose Reference Range is dependent on time and content of last meal. Glucose of more than 200 mg/dL in a nonstressed, ambulatory subject supports the diagnosis of Diabetes Mellitus.PERFORMED BY:[address] [place], [place] [phone] MEDICAL JAKE MCWILLIAMS M.D. Performed By: #### G LULS ####Point of Care testing, Glucose [Mass/Vol] 380 mg/dL Normal [facility] Comment on above: Result Comment: [facility] Glucose Reference Range is dependent on time and content of last meal. Glucose of more than 200 mg/dL in a nonstressed, ambulatory subject supports the diagnosis of Diabetes Mellitus.PERFORMED BY:[place] [address] [address] [place], [place] [phone] MEDICAL JAKE MCWILLIAMS M.D. Performed By: #### G LULS ####Point of Care testing, Commemt1 Glu2: Cleaned Meter Normal [facility] Comment on above: Result Comment: PERF ORMED BY:[place] [address], [place] [phone] MEDICAL DIRECTORDEAN MCWILLIAMS M.D. Performed By: #### G LULS ####Point of Care testing, Glucose [Mass/Vol] 154 mg/dL Normal [facility] Comment on above: Result Comment: [place] om Glucose Reference Range is dependent on time and content of last meal. Glucose of more than 200 mg/dL in a nonstressed, ambulatory subject supports the diagnosis of Diabetes Mellitus. Performed By: #### G LULS ####Point of Care testing, Commemt1 Glu2: Cleaned Meter Normal [facility] Comment on above: Result Comment: PERF ORMED BY:[place] [address] [place], [place] [phone] MEDICAL DIRECTORDEAN MCWILLIAMS M.D. Performed By: #### G LULS ####Point of Care testing, Glucose [Mass/Vol] 130 mg/dL Normal [facility] Comment on above: Result Comment: [place] om Glucose Reference Range is dependent on time and content of last meal. Glucose of more than 200 mg/dL in a nonstressed, ambulatory subject supports the diagnosis of Diabetes Mellitus. Performed By: #### G LULS ####Point of Care testing, MR foot RT wo conon 08-27-19 24 MR foot RT wo con Normal [facility] Rouleaux detectionOrdered By : Denice Dahl on 08-27-2023 Rouleaux LM Ql (Bld) Slight [facility] Teardrop cell detectionOrder ed By: Denice Dahl on 08-27-2023 Dacrocytes LM Ql (Bld) Slight [facility] A1C with Estimated Average G luon 08-26-2023 Glucose [Mass/Vol] 209 mg/dL Normal [facility] Comment on above: Result Comment: PERF ORMED BY:[place] [address] [address] [place], [place] [phone] MEDICAL DIRECTORDEAN MCWILLIAMS M.D. Performed By: #### A 1C WTH eA ####[facility] [address] [place] [address] [place] Bacteria identified Aer cx N om (Unsp spec)Ordered By: Denice Dahl on 08-26-2023 Superficial Wound Culture Proteus mirabilis Abnormal [facility] C-Reactive Proteinon 024 C-Reactive Protein 27.4 mg/dL High 0.0-0.5 [facility] Comment on above: Result Comment: PERF ORMED BY:[address] [place], [place] [phone] MEDICAL DIRECTORDEAN MCWILLIAMS M.D. Performed By: #### M G, CRP, ESR, CMP, CBC ####[place] [id number] [facility] Complete Blood Count Auto Di ffon 08-26-2023 Basophils (Bld) [#/Vol] 0.1 10*3/uL Normal 0.0-0.2 [facility] Comment on above: Performed By: #### M G, CRP, ESR, CMP, CBC ####[place] [id number] [facility] Basophils/100 WBC (Bld) 0.7 % Normal . [facility] Comment on above: Performed By: #### M G, CRP, ESR, CMP, CBC ####[address] Eosinophils (Bld) [#/Vol] 0.1 10*3/uL Normal 0.0-0.45 [facility] Comment on above: Performed By: #### M G, CRP, ESR, CMP, CBC ####[address] Eosinophils/100 WBC (Bld) 1.2 % Normal . [facility] Comment on above: Performed By: #### M G, CRP, ESR, CMP, CBC ####[address] Erythrocyte distribution width (RBC) [Ratio] 18.3 % High 12.0-14.8 [facility] Comment on above: Performed By: #### M G, CRP, ESR, CMP, CBC ####[address] Hematocrit (Bld) [Volume fraction] 30.9 % Low 38.8-50.0 [facility] Comment on above: Performed By: #### M G, CRP, ESR, CMP, CBC ####[address] Hemoglobin (Bld) [Mass/Vol] 10.2 g/dL Low 13.0-17.0 [facility] Comment on above: Performed By: #### M G, CRP, ESR, CMP, CBC ####[address] Lymphocytes (Bld) [#/Vol] 0.3 10*3/uL Low 1.00-4.8 [facility] Comment on above: Performed By: #### M G, CRP, ESR, CMP, CBC ####[address] Lymphocytes/100 WBC (Bld) 3.7 % Normal . [facility] Comment on above: Performed By: #### M G, CRP, ESR, CMP, CBC ####[address] MCH (RBC) [Entitic mass] 28.4 pg Normal 27.5-35.2 [facility] Comment on above: Performed By: #### M G, CRP, ESR, CMP, CBC ####[address] MCV (RBC) [Entitic vol] 86.3 fL Normal 83.5-101 [facility] Comment on above: Performed By: #### M G, CRP, ESR, CMP, CBC ####[address] Mean Corpuscular HGB Conc 32.9 g/dL Normal 32.5-35.6 [facility] Comment on above: Performed By: #### M G, CRP, ESR, CMP, CBC ####[address] Monocytes (Bld) [#/Vol] 0.9 10*3/uL High 0.0-0.8 [facility] Comment on above: Performed By: #### M G, CRP, ESR, CMP, CBC ####[address] Monocytes/100 WBC (Bld) 10.7 % Normal . [facility] Comment on above: Performed By: #### M G, CRP, ESR, CMP, CBC ####[address] Neutrophils (Bld) [#/Vol] 7.1 10*3/uL Normal 1.8-7.7 [facility] Comment on above: Performed By: #### M G, CRP, ESR, CMP, CBC ####[address] Neutrophils/100 WBC (Bld) 83.7 % Normal . [facility] Comment on above: Performed By: #### M G, CRP, ESR, CMP, CBC ####[address] NRBC% 0.0 /100{WBC} Normal 0-0.5 [facility] Comment on above: Performed By: #### M G, CRP, ESR, CMP, CBC ####[address] Platelet mean volume (Bld) [Entitic vol] 7.7 fL Normal 6.6-10.1 [facility] Comment on above: Performed By: #### M G, CRP, ESR, CMP, CBC ####[address] Platelets (Bld) [#/Vol] 226 10*3/uL Normal 150-450 [facility] Comment on above: Performed By: #### M G, CRP, ESR, CMP, CBC ####[address] RBC (Bld) [#/Vol] 3.58 10*6/uL Low 3.90-5.60 [facility] Comment on above: Performed By: #### M G, CRP, ESR, CMP, CBC ####[address] WBC (Bld) [#/Vol] 8.5 10*3/uL Normal 4.1-10.5 [facility] Comment on above: Performed By: #### M G, CRP, ESR, CMP, CBC ####[address] Comprehensive Metabolic Pane raghu 08-26-2023 Albumin [Mass/Vol] 3.0 g/dL Low 3.5-5.7 [facility] Comment on above: Performed By: #### M G, CRP, ESR, CMP, CBC ####[address] Albumin/Globulin [Mass ratio] 0.8 {ratio} Normal [facility] Comment on above: Performed By: #### M G, CRP, ESR, CMP, CBC ####[address] ALP [Catalytic activity/Vol] 62 U/L Normal 34-104 [facility] Comment on above: Performed By: #### M G, CRP, ESR, CMP, CBC ####[address] ALT [Catalytic activity/Vol] 15 U/L Normal 7-52 [facility] Comment on above: Performed By: #### M G, CRP, ESR, CMP, CBC ####[address] Anion gap [Moles/Vol] 17.3 mmol/L High 6.0-15.0 Th e [facility] Comment on above: Performed By: #### M G, CRP, ESR, CMP, CBC ####[address] AST [Catalytic activity/Vol] 29 U/L Normal 13-39 [facility] Comment on above: Performed By: #### M G, CRP, ESR, CMP, CBC ####[address] Bilirubin [Mass/Vol] 0.8 mg/dL Normal 0.3-1.0 [facility] Comment on above: Performed By: #### M G, CRP, ESR, CMP, CBC ####[address] Calcium [Mass/Vol] 9.5 mg/dL Normal 8.6-10.3 [facility] Comment on above: Performed By: #### M G, CRP, ESR, CMP, CBC ####[address] Chloride [Moles/Vol] 92 mmol/L Low 98-107 [facility] Comment on above: Performed By: #### M G, CRP, ESR, CMP, CBC ####[address] CO2 [Moles/Vol] 28.9 mmol/L Normal 21.0-31.0 [facility] Comment on above: Performed By: #### M G, CRP, ESR, CMP, CBC ####[address] Creatinine [Mass/Vol] 10.52 mg/dL Significan t change up 0.70-1.30 [facility] Comment on above: Performed By: #### M G, CRP, ESR, CMP, CBC ####[address] Creatinine Clr Calc Pharmacy 7.26 Normal [facility] Comment on above: Performed By: #### M G, CRP, ESR, CMP, CBC ####[address] GFR/1.73 sq M.predicted MDRD (S/P/Bld) [Vol rate/Area] 4.898 mL/min/{1.73_m2} Normal [facility] Comment on above: Performed By: #### M G, CRP, ESR, CMP, CBC ####[address] [place] [address] [place] Globulin (S) [Mass/Vol] 3.8 g/dL Normal [facility] Comment on above: Performed By: #### M G, CRP, ESR, CMP, CBC ####[address] Glucose [Mass/Vol] 174 mg/dL Significant change up 70-100 [facility] Comment on above: Result Comment: [facility] Glucose Reference Range is dependent on time and content of last meal. Glucose of more than 200 mg/dL in a nonstressed, ambulatory subject supports the diagnosis of Diabetes Mellitus. ADA recommended reference range Performed By: #### M G, CRP, ESR, CMP, CBC ####[address] Potassium [Moles/Vol] 5.2 mmol/L High 3.5-5.1 [facility] Comment on above: Performed By: #### M G, CRP, ESR, CMP, CBC ####[address] Protein [Mass/Vol] 6.8 g/dL Normal 6.4-8.9 [facility] Comment on above: Performed By: #### M G, CRP, ESR, CMP, CBC ####[address] Sodium [Moles/Vol] 133 mmol/L Significant change down 136-145 [facility] Comment on above: Performed By: #### M G, CRP, ESR, CMP, CBC ####[address] Urea nitrogen [Mass/Vol] 45 mg/dL High 7-25 [facility] Comment on above: Performed By: #### M G, CRP, ESR, CMP, CBC ####[address] ECG 12 lead ECGon 08-26-2023 ECG 12 lead ECG Normal [facility] Erythrocyte Sedimentation Ra kunal 08-26-2023 ESR (Bld) [Velocity] 86 mm/h High 0-19 [facility] Comment on above: Result Comment: PERF ORMED BY:[address] [place], [place] [phone] MEDICAL DIRECTORDEAN MCWILLIAMS M.D. Performed By: #### M G, CRP, ESR, CMP, CBC ####[address] [address] [facility] Glucose Poct Glucometerson 0 08-26-2023 Glucose [Mass/Vol] 360 mg/dL Normal [facility] Comment on above: Result Comment: [place] om Glucose Reference Range is dependent on time and content of last meal. Glucose of more than 200 mg/dL in a nonstressed, ambulatory subject supports the diagnosis of Diabetes Mellitus.PERFORMED BY:[address] [place], [place] [phone] MEDICAL DIRECTORDEAN MCWILLIAMS M.D. Performed By: #### G LULS ####Point of Care testing, Glucose [Mass/Vol] 111 mg/dL Normal [facility] Comment on above: Result Comment: [place] om Glucose Reference Range is dependent on time and content of last meal. Glucose of more than 200 mg/dL in a nonstressed, ambulatory subject supports the diagnosis of Diabetes Mellitus.PERFORMED BY:[address] [place], [place] [phone] MEDICAL JAKE MCWILLIAMS M.D. Performed By: #### G LULS ####Point of Care testing, Commemt1 Glu2: Cleaned Meter Normal [facility] Comment on above: Result Comment: PERF ORMED BY:[address] [place], [place] [phone] MEDICAL DIRECTORDEAN MCWILLIAMS M.D. Performed By: #### G LULS ####Point of Care testing, Glucose [Mass/Vol] 162 mg/dL Normal [facility] Comment on above: Result Comment: [place] om Glucose Reference Range is dependent on time and content of last meal. Glucose of more than 200 mg/dL in a nonstressed, ambulatory subject supports the diagnosis of Diabetes Mellitus. Performed By: #### G LULS ####Point of Care testing, Commemt1 Glu2: Cleaned Meter Normal [facility] Comment on above: Result Comment: PERF ORMED BY:[address] [place], [place] [phone] MEDICAL DIRECTORDEAN MCWILLIAMS M.D. Performed By: #### G LULS ####Point of Care testing, Glucose [Mass/Vol] 171 mg/dL Normal [facility] Comment on above: Result Comment: [facility] Glucose Reference Range is dependent on time [...] from glycated hemoglobin (Bld) [Mass/Vol] 209 mg/dL [facility] Hemoglobin A1c percentageOrd ered By: Alon Santiago on 08-26-2023 HbA1c (Bld) [Mass fraction] 8.9 % High 4.3-5.6 [facility] Comment on above: Increased risk for d iabetes: 5.7 - 6.4diabetes: >6.4glycemic control for adults with diabetes: <7.0 Result Comment: Incr eased risk for diabetes: 5.7 - 6.4 diabetes: >6.4 glycemic control for adults with diabetes: <7.0 Performed By: #### A 1C WTH eA ####[facility] [id number] [place] [address] [facility] Magnesium [Mass/volume] in S bushra or PlasmaOrdered By: Alon Santiago on 08-26-2023 Magnesium [Mass/Vol] 2.1 mg/dL Normal 1.9-2.7 [facility] Comment on above: Performed By: #### M G, CRP, ESR, CMP, CBC ####[facility] [address] [place] [address] [facility] Superficial Wound Cultureon 08-26-2023 Superficial Wound Culture Normal [facility] Comment on above: Performed By: #### C USUP ####[address] [address] [facility] US arterial pvr rest Amber US arterial pvr rest LE Normal [facility] US venous duplex LE BIon US venous duplex LE BI Normal Th e [facility] Bacterial blood cultureOrder ed By: Alon Santiago on 08-25-2023 Bacteria identified Cx Nom (Bld) NO GROWTH 5 DAYS [facility] Bacteria identified Cx Nom (Bld) NO GROWTH 5 DAYS [facility] Blood Cultureon 08-25-2023 Bacteria identified Cx Nom (Bld) NO GROWTH 5 DAYS PERFORMED BY: [facility] [address] [id number] PATHOLOGIST [employer] DEAN MCWILLIAMS M.D. Normal [facility] Comment on above: Performed By: #### C UBLD ####[place] [id number] [facility] Bacteria identified Cx Nom (Bld) NO GROWTH 5 DAYS PERFORMED BY: [facility] [address] [facility] [place] [id number] PATHOLOGIST [employer] DEAN MCWILLIAMS M.D. Normal [facility] Comment on above: Performed By: #### C UBLD ####[place] [id number] [facility] Complete Blood Count Auto Di ffon 08-25-2023 Basophils (Bld) [#/Vol] 0.0 10*3/uL Normal 0.0-0.2 [facility] Comment on above: Result Comment: PERF ORMED BY:[address] [place], [place] [phone] MEDICAL DIRECTORDEAN MCWILLIAMS M.D. Performed By: #### C MP, CBC ####[place] [id number] [facility] Basophils/100 WBC (Bld) 0.5 % Normal . [facility] Comment on above: Performed By: #### C MP, CBC ####[address] Eosinophils (Bld) [#/Vol] 0.0 10*3/uL Normal 0.0-0.45 [facility] Comment on above: Performed By: #### C MP, CBC ####[place] [id number] [facility] Eosinophils/100 WBC (Bld) 0.2 % Normal . [facility] Comment on above: Performed By: #### C MP, CBC ####[address] Erythrocyte distribution width (RBC) [Ratio] 18.3 % High 12.0-14.8 [facility] Comment on above: Performed By: #### C MP, CBC ####[address] Hematocrit (Bld) [Volume fraction] 30.5 % Low 38.8-50.0 [facility] Comment on above: Performed By: #### C MP, CBC ####[address] Hemoglobin (Bld) [Mass/Vol] 9.8 g/dL Low 13.0-17.0 [facility] Comment on above: Performed By: #### C MP, CBC ####[address] Lymphocytes (Bld) [#/Vol] 0.3 10*3/uL Low 1.00-4.8 [facility] Comment on above: Performed By: #### C MP, CBC ####[address] Lymphocytes/100 WBC (Bld) 3.4 % Normal . [facility] Comment on above: Performed By: #### C MP, CBC ####[address] MCH (RBC) [Entitic mass] 28.0 pg Normal 27.5-35.2 [facility] Comment on above: Performed By: #### C MP, CBC ####[address] MCV (RBC) [Entitic vol] 87.9 fL Normal 83.5-101 [facility] Comment on above: Performed By: #### C MP, CBC ####[address] Mean Corpuscular HGB Conc 31.9 g/dL Low 32.5-35.6 [facility] Comment on above: Performed By: #### C MP, CBC ####[address] Monocytes (Bld) [#/Vol] 0.9 10*3/uL High 0.0-0.8 [facility] Comment on above: Performed By: #### C MP, CBC ####[address] Monocytes/100 WBC (Bld) 11.1 % Normal . [facility] Comment on above: Performed By: #### C MP, CBC ####[address] Neutrophils (Bld) [#/Vol] 6.9 10*3/uL Normal 1.8-7.7 [facility] Comment on above: Performed By: #### C MP, CBC ####[place] [id number] [facility] Neutrophils/100 WBC (Bld) 84.8 % Normal . [facility] Comment on above: Performed By: #### C MP, CBC ####[address] NRBC% 0.0 /100{WBC} Normal 0-0.5 [facility] Comment on above: Performed By: #### C MP, CBC ####[address] Platelet mean volume (Bld) [Entitic vol] 7.8 fL Normal 6.6-10.1 [facility] Comment on above: Performed By: #### C MP, CBC ####[place] [id number] [facility] Platelets (Bld) [#/Vol] 236 10*3/uL Normal 150-450 [facility] Comment on above: Performed By: #### C MP, CBC ####[address] RBC (Bld) [#/Vol] 3.48 10*6/uL Low 3.90-5.60 [facility] Comment on above: Performed By: #### C MP, CBC ####[place] [id number] [facility] WBC (Bld) [#/Vol] 8.1 10*3/uL Normal 4.1-10.5 [facility] Comment on above: Performed By: #### C MP, CBC ####[address] Comprehensive Metabolic Pane raghu 08-25-2023 Albumin [Mass/Vol] 3.3 g/dL Low 3.5-5.7 [facility] Comment on above: Performed By: #### C MP, CBC ####[address] Albumin/Globulin [Mass ratio] 0.8 {ratio} Normal [facility] Comment on above: Performed By: #### C MP, CBC ####[place] [id number] [facility] ALP [Catalytic activity/Vol] 66 U/L Normal 34-104 [facility] Comment on above: Performed By: #### C MP, CBC ####[place] [id number] [facility] ALT [Catalytic activity/Vol] 11 U/L Normal 7-52 [facility] Comment on above: Performed By: #### C MP, CBC ####[place] [id number] [facility] Anion gap [Moles/Vol] 16.6 mmol/L High 6.0-15.[address] [facility] Comment on above: Performed By: #### C MP, CBC ####[address] [address] [facility] AST [Catalytic activity/Vol] 17 U/L Normal 13-39 [facility] Comment on above: Performed By: #### C MP, CBC ####[address] [address] [facility] Bilirubin [Mass/Vol] 0.8 mg/dL Normal 0.3-1.0 [facility] Comment on above: Performed By: #### C MP, CBC ####[address] [address] [facility] Calcium [Mass/Vol] 10.0 mg/dL Normal 8.6-10.3 [facility] Comment on above: Performed By: #### C MP, CBC ####[place] [id number] [facility] Chloride [Moles/Vol] 90 mmol/L Low 98-107 [facility] Comment on above: Performed By: #### C MP, CBC ####[place] [id number] [facility] CO2 [Moles/Vol] 25.8 mmol/L Normal 21.0-31.0 [facility] Comment on above: Performed By: #### C MP, CBC ####[address] [address] [facility] Creatinine [Mass/Vol] 8.91 mg/dL High 0.70-1.30 [facility] Comment on above: Performed By: #### C MP, CBC ####[place] [id number] [facility] Creatinine Clr Calc Pharmacy 9.28 Normal [facility] Comment on above: Result Comment: PERF ORMED BY:[place] [address] [place], [place] [phone] MEDICAL DIRECTORDEAN MCWILLIAMS M.D. Performed By: #### C MP, CBC ####[address] [address] [place] GFR/1.73 sq M.predicted MDRD (S/P/Bld) [Vol rate/Area] 5.978 mL/min/{1.73_m2} Normal [facility] Comment on above: Performed By: #### C MP, CBC ####[place] [id number] [facility] Globulin (S) [Mass/Vol] 4.3 g/dL Normal [facility] Comment on above: Performed By: #### C MP, CBC ####[place] [id number] [facility] Glucose [Mass/Vol] 428 mg/dL High 70-100 [facility] Comment on above: Result Comment: [place] Glucose Reference Range is dependent on time and content of last meal. Glucose of more than 200 mg/dL in a nonstressed, ambulatory subject supports the diagnosis of Diabetes Mellitus. ADA recommended reference range Performed By: #### C MP, CBC ####[place] [id number] [facility] Potassium [Moles/Vol] 5.4 mmol/L High 3.5-5.1 [facility] Comment on above: Performed By: #### C MP, CBC ####[place] [id number] [facility] Protein [Mass/Vol] 7.6 g/dL Normal 6.4-8.9 [facility] Comment on above: Performed By: #### C MP, CBC ####[place] [id number] [facility] Sodium [Moles/Vol] 127 mmol/L Low 136-145 [facility] Comment on above: Performed By: #### C MP, CBC ####[address] [address] [facility] Urea nitrogen [Mass/Vol] 37 mg/dL High 7-25 [facility] Comment on above: Performed By: #### C MP, CBC ####[address] [address] [facility] Glucose Poct Glucometerson 0 08-25-2023 Glucose [Mass/Vol] 329 mg/dL Normal [facility] Comment on above: Result Comment: [place] Glucose Reference Range is dependent on time and content of last meal. Glucose of more than 200 mg/dL in a nonstressed, ambulatory subject supports the diagnosis of Diabetes Mellitus.PERFORMED BY:[place] [address] [place], [place] [phone] MEDICAL DIRECTORDEAN MCWILLIAMS M.D. Performed By: #### G LULS ####Point of Care testing, Commemt1 Normal [facility] Comment on above: Result Comment: Glu2 : WILL NOTIFY DR/RNPERFORMED BY:[address] [place], [place] [phone] MEDICAL DIRECTORDEAN MCWILLIAMS M.D. Performed By: #### G LULS ####Point of Care testing, Glucose [Mass/Vol] 441 mg/dL Off scale high Th e [facility] Comment on above: Result Comment: [place] Glucose Reference Range is dependent on time and content of last meal. Glucose of more than 200 mg/dL in a nonstressed, ambulatory subject supports the diagnosis of Diabetes Mellitus. Performed By: #### G LULS ####Point of Care testing, Commemt1 Ladnry [facility] Comment on above: Result Comment: Glu2 : Will Repeat TestPERFORMED BY:[address] [place]odia[place], [place] [phone] MEDICAL DIRECTORDEAN MCWILLIAMS M.D. Performed By: #### G LULS ####Point of Care testing, Glucose [Mass/Vol] 420 mg/dL Off scale high Th e [facility] Comment on above: Result Comment: [place] Glucose Reference Range is dependent on time and content of last meal. Glucose of more than 200 mg/dL in a nonstressed, ambulatory subject supports the diagnosis of Diabetes Mellitus. Performed By: #### G LULS ####Point of Care testing, Commemt1 Glu2: Cleaned Meter Normal [facility] Comment on above: Performed By: #### G LULS ####Point of Care testing, Commemt2 WILL NOTIFY DR/RN Normal [facility] Comment on above: Result Comment: PERF ORMED BY:[place] [address] [place], [place] [phone] MEDICAL DIRECTORDEAN MCWILLIAMS M.D. Performed By: #### G LULS ####Point of Care testing, Glucose [Mass/Vol] 393 mg/dL Normal [facility] Comment on above: Result Comment: [facility] Glucose Reference Range is dependent on time and content of last meal. Glucose of more than 200 mg/dL in a nonstressed, ambulatory subject supports the diagnosis of Diabetes Mellitus. Performed By: #### G LULS ####Point of Care testing, Lactate [Moles/volume] in Se rum or PlasmaOrdered By: Alon Santiago on 08-25-2023 Lactate [Moles/Vol] 1.6 mmol/L Normal 0.5-2.2 [facility] Comment on above: Result Comment: PERF ORMED BY:[address] [place], [place] [phone] MEDICAL DIRECTORDEAN MCWILLIAMS M.D. Performed By: #### L ACTIC ####[place] [id number] [facility] XR foot BI 2Von 08-25-2023 XR foot BI 2V Normal [facility] Automated basophil %Ordered By: Gabriel Gould on 06-26-2023 Basophils/100 WBC (Bld) 0.6 % Normal . [facility] Comment on above: Performed By: #### B MP, MG, CBC ####[place] [id number] [facility] Automated basophil countOrde red By: Gabriel Gould on 06-26-2023 Basophils (Bld) [#/Vol] 0.0 10*3/uL Normal 0.0-0.2 [facility] Comment on above: Result Comment: PERF ORMED BY:[place] [address] [address] [place], [place] [phone] MEDICAL DIRECTORDEAN MCWILLIAMS M.D. Performed By: #### B MP, MG, CBC ####[address] Automated blood monocyte cou ntOrdered By: Gabriel Gould on 06-26-2023 Monocytes (Bld) [#/Vol] 1.6 10*3/uL High 0.0-0.8 [facility] Comment on above: Performed By: #### B MP, MG, CBC ####[address] Automated eosinophil %Ordere d By: Gabriel Gould on 06-26-2023 Eosinophils/100 WBC (Bld) 2.1 % Normal . [facility] Comment on above: Performed By: #### B MP, MG, CBC ####[address] Automated eosinophil countOr dered By: Gabriel Gould on 06-26-2023 Eosinophils (Bld) [#/Vol] 0.2 10*3/uL Normal 0.0-0.45 [facility] Comment on above: Performed By: #### B MP, MG, CBC ####[address] Automated monocyte %Ordered By: Gabriel Gould on 06-26-2023 Monocytes/100 WBC (Bld) 19.8 % Normal . [facility] Comment on above: Performed By: #### B MP, MG, CBC ####[address] Automated neutrophil %Ordere d By: Gabriel Gould on 06-26-2023 Neutrophils/100 WBC (Bld) 65.0 % Normal . [facility] Comment on above: Performed By: #### B MP, MG, CBC ####[address] Basic Metabolic Panelon 06-11 Creatinine Clr Calc Pharmacy 10.35 Normal [facility] Comment on above: Performed By: #### B MP, MG, CBC ####[place] [address] [facility] GFR/1.73 sq M.predicted MDRD (S/P/Bld) [Vol rate/Area] 6.692 mL/min/{1.73_m2} Normal [facility] Comment on above: Performed By: #### B MP, MG, CBC ####[place] [id number] [place] [id number] [facility] Calcium [Mass/volume] in Ser um or PlasmaOrdered By: Gabriel Gould on 06-26-2023 Calcium [Mass/Vol] 8.9 mg/dL Normal 8.6-10.3 [facility] Comment on above: Performed By: #### B MP, MG, CBC ####[place] [address] Capillary blood glucose mike urement by glucometer (mass/volume)Ordered By: Diony Devi on 06-26-2023 Glucose [Mass/Vol] 138 mg/dL Normal [facility] Comment on above: Random Glucose Refer ence Range is dependent on time and content of last meal. Glucose of more than 200 mg/dL in a nonstressed, ambulatory subject supports the diagnosis of Diabetes Mellitus. Result Comment: [place] Glucose Reference Range is dependent on time and content of last meal. Glucose of more than 200 mg/dL in a nonstressed, ambulatory subject supports the diagnosis of Diabetes Mellitus. Performed By: #### G LUELLIS ####Point of Care testing, Carbon dioxide, total [Moles /volume] in Serum or PlasmaOrdered By: Gabriel Gould on 06-26-2023 CO2 [Moles/Vol] 29.1 mmol/L Normal 21.0-31.0 [facility] Comment on above: Performed By: #### B MP, MG, CBC ####[place] [address] [place] [id number] [place] Chloride [Moles/volume] in S bushra or PlasmaOrdered By: Gabriel Gould on 06-26-2023 Chloride [Moles/Vol] 97 mmol/L Low 98-107 [facility] Comment on above: Performed By: #### B MP, MG, CBC ####[place] [id number] [place] [id number] [facility] Complete Blood Count Auto Di ffon 06-26-2023 Mean Corpuscular HGB Conc 33.0 g/dL Normal 32.5-35.6 [facility] Comment on above: Performed By: #### B MP, MG, CBC ####[address] NRBC% 0.0 /100{WBC} Normal 0-0.5 [facility] Comment on above: Performed By: #### B MP, MG, CBC ####[address] Creatinine [Mass/volume] in Serum or PlasmaOrdered By: Gabriel Gould on 06-26-2023 Creatinine [Mass/Vol] 8.11 mg/dL Significan t change up 0.70-1.30 [facility] Comment on above: Delta: 6.09 on 06/24 Performed By: #### B MP, MG, CBC ####[address] Erythrocyte distribution wid th [Ratio] by Automated countOrdered By: Gabriel Gould on 06-26-2023 Erythrocyte distribution width (RBC) [Ratio] 15.4 % High 12.0-14.8 [facility] Comment on above: Performed By: #### B MP, MG, CBC ####[address] Erythrocytes [#/volume] in B lood by Automated countOrdered By: Gabriel Gould on 06-26-2023 RBC (Bld) [#/Vol] 3.34 10*6/uL Low 3.90-5.60 [facility] Comment on above: Performed By: #### B MP, MG, CBC ####[address] Glucose Poct Glucometerson 0 06-26-2023 Commemt1 Glu2: Cleaned Meter Normal [facility] Comment on above: Result Comment: PERF ORMED BY:[place] [address] [place], [place] [phone] MEDICAL DIRECTORDEAN MCWILLIAMS M.D. Performed By: #### G DARLENE ####Point of Care testing, Glucose [Mass/Vol] 78 mg/dL Normal [facility] Comment on above: Result Comment: [place] om Glucose Reference Range is dependent on time and content of last meal. Glucose of more than 200 mg/dL in a nonstressed, ambulatory subject supports the diagnosis of Diabetes Mellitus.PERFORMED BY:[place] [address] [place], [place] [phone] MEDICAL DIRECTORDEAN MCWILLIAMS M.D. Performed By: #### G DARLENE ####Point of Care testing, Glucose [Mass/volume] in Ser um or PlasmaOrdered By: Gabriel Gould on 06-26-2023 Glucose [Mass/Vol] 72 mg/dL Normal 70-100 [facility] Comment on above: ADA recommended refe rence rangeRandom Glucose Reference Range is dependent on time and content of last meal. Glucose of more than 200 mg/dL in a nonstressed, ambulatory subject supports the diagnosis of Diabetes Mellitus. Result Comment: [place] Glucose Reference Range is dependent on time and content of last meal. Glucose of more than 200 mg/dL in a nonstressed, ambulatory subject supports the diagnosis of Diabetes Mellitus. ADA recommended reference range Performed By: #### B MP, MG, CBC ####[place] [id number] [facility] Hematocrit [Volume Fraction] of Blood by Automated countOrdered By: Gabriel Gould on 06-26-2023 Hematocrit (Bld) [Volume fraction] 29.2 % Low 38.8-50.0 [facility] Comment on above: Performed By: #### B MP, MG, CBC ####[address] [address] [facility] Hemoglobin [Mass/volume] in BloodOrdered By: Gabriel Gould on 06-26-2023 Hemoglobin (Bld) [Mass/Vol] 9.7 g/dL Low 13.0-17.0 [facility] Comment on above: Performed By: #### B MP, MG, CBC ####[address] Leukocytes [#/volume] correc jennifer for nucleated erythrocytes in Blood by Automated counOrdered By: Gabriel Gould on 06-26-2023 WBC corrected for nucl RBC Auto (Bld) [#/Vol] 8.1 10*3/uL 4.1-10.5 [facility] Leukocytes [#/volume] in Blo od by Automated countOrdered By: Gabriel Gould on 06-26-2023 WBC (Bld) [#/Vol] 8.1 10*3/uL Normal 4.1-10.5 [facility] Comment on above: Performed By: #### B MP, MG, CBC ####[address] Lymphocytes [#/volume] in Bl ood by Automated countOrdered By: Gabriel Gould on 06-26-2023 Lymphocytes (Bld) [#/Vol] 1.0 10*3/uL Normal 1.00-4.8 [facility] Comment on above: Performed By: #### B MP, MG, CBC ####[address] Lymphocytes/100 leukocytes i n Blood by Automated countOrdered By: Gabriel Gould on 06-26-2023 Lymphocytes/100 WBC (Bld) 12.5 % Normal . [facility] Comment on above: Performed By: #### B MP, MG, CBC ####[address] MCH [Entitic mass] by Automa jennifer countOrdered By: Gabriel Gould on 06-26-2023 MCH (RBC) [Entitic mass] 28.9 pg Normal 27.5-35.2 [facility] Comment on above: Performed By: #### B MP, MG, CBC ####[address] MCHC Auto (RBC) [Mass/Vol]Or dered By: Gabriel Gould on 06-26-2023 MCHC (RBC) [Mass/Vol] 33.0 g/dL 32.5-35.6 [facility] MCV [Entitic volume] by Auto mated countOrdered By: Gabriel Gould on 06-26-2023 MCV (RBC) [Entitic vol] 87.4 fL Normal 83.5-101 [facility] Comment on above: Performed By: #### B MP, MG, CBC ####[place] [address] Magnesium [Mass/volume] in S bushra or PlasmaOrdered By: Gabriel Gould on 06-26-2023 Magnesium [Mass/Vol] 1.9 mg/dL Normal 1.9-2.7 [facility] Comment on above: Result Comment: PERF ORMED BY:[address] [place], [place] [id number] MEDICAL DIRECTORDEAN MCWILLIAMS M.D. Performed By: #### B MP, MG, CBC ####[place] [id number] [facility] Neutrophils [#/volume] in Bl ood by Automated countOrdered By: Gabriel Gould on 06-26-2023 Neutrophils (Bld) [#/Vol] 5.3 10*3/uL Normal 1.8-7.7 [facility] Comment on above: Performed By: #### B MP, MG, CBC ####[address] No Panel InformationOrdered By: Diony Devi on 06-26-2023 Bedside Glucose Comment Glu2: cleaned meter [facility] No Panel InformationOrdered By: Gabriel Gould on 06-26-2023 Estimated GFR (CKD-EPI) 6.692 mL/Min [facility] Creatinine Clearance (Chem 10.35 [facility] Nucleated erythrocytes [Pres ence] in Blood by Automated countOrdered By: Gabriel Gould on 06-26-2023 Nucleated RBC Auto Ql (Bld) 0.0 /100{WBC} 0-0.5 [facility] Platelet mean volume [Entiti c volume] in Blood by Automated countOrdered By: Gabriel Gould on 06-26-2023 Platelet mean volume (Bld) [Entitic vol] 7.8 fL Normal 6.6-10.1 [facility] Comment on above: Performed By: #### B MP, MG, CBC ####[place] [address] [place] [id number] [facility] Platelets [#/volume] in Bloo d by Automated countOrdered By: Gabriel Gould on 06-26-2023 Platelets (Bld) [#/Vol] 315 10*3/uL Normal 150-450 [facility] Comment on above: Performed By: #### B MP, MG, CBC ####[place] [id number] [facility] Potassium [Moles/volume] in Serum or PlasmaOrdered By: Gabriel Gould on 06-26-2023 Potassium [Moles/Vol] 4.3 mmol/L Normal 3.5-5.1 [facility] Comment on above: Performed By: #### B MP, MG, CBC ####[place] [id number] [facility] Serum or plasma anion gap de terminationOrdered By: Gabriel Gould on 06-26-2023 Anion gap [Moles/Vol] 6.2 mmol/L Normal 6.0-15.0 [facility] Comment on above: Performed By: #### B MP, MG, CBC ####[place] [id number] [facility] Sodium [Moles/volume] in Ser um or PlasmaOrdered By: Gabriel Gould on 06-26-2023 Sodium [Moles/Vol] 128 mmol/L Low 136-145 [facility] Comment on above: Performed By: #### B MP, MG, CBC ####[address] [address] [facility] Urea nitrogen [Mass/volume] in Serum or PlasmaOrdered By: Gabriel Gould on 06-26-2023 Urea nitrogen [Mass/Vol] 30 mg/dL High 7-25 [facility] Comment on above: Performed By: #### B MP, MG, CBC ####[address] Aerobic Cultureon 06-25-2023 Aerobic Culture Normal [facility] Comment on above: Performed By: #### A ERC ####[address] Basic Metabolic Panelon 06-11 Anion gap [Moles/Vol] 8.7 mmol/L Normal 6.0-15.0 [facility] Comment on above: Performed By: #### Ezekiel Lewis CBC, BMP ####[address] Calcium [Mass/Vol] 8.7 mg/dL Normal 8.6-10.3 [facility] Comment on above: Performed By: #### Ezekiel Lewis, CBC, BMP ####[address] Chloride [Moles/Vol] 95 mmol/L Low 98-107 [facility] Comment on above: Performed By: #### Ezekiel Lewis CBC, BMP ####[address] CO2 [Moles/Vol] 28.5 mmol/L Normal 21.0-31.0 [facility] Comment on above: Performed By: #### Ezekiel Lewis, CBC, BMP ####[address] Creatinine [Mass/Vol] 6.09 mg/dL Significan t change up 0.70-1.30 [facility] Comment on above: Performed By: #### Ezekiel Lewis, CBC, BMP ####[address] Creatinine Clr Calc Pharmacy 13.50 Normal [facility] Comment on above: Performed By: #### M G, CBC, BMP ####[address] GFR/1.73 sq M.predicted MDRD (S/P/Bld) [Vol rate/Area] 9.438 mL/min/{1.73_m2} Normal [facility] Comment on above: Performed By: #### Ezekiel Lewis, CBC, BMP ####[address] Glucose [Mass/Vol] 118 mg/dL High 70-100 [facility] Comment on above: Result Comment: [facility] Glucose Reference Range is dependent on time and content of last meal. Glucose of more than 200 mg/dL in a nonstressed, ambulatory subject supports the diagnosis of Diabetes Mellitus. ADA recommended reference range Performed By: #### M Debbie, CBC, BMP ####[address] Potassium [Moles/Vol] 4.2 mmol/L Normal 3.5-5.1 [facility] Comment on above: Performed By: #### Ezekiel Lewis, CBC, BMP ####[address] Sodium [Moles/Vol] 128 mmol/L Low 136-145 [facility] Comment on above: Performed By: #### Ezekiel Lewis, CBC, BMP ####[address] Urea nitrogen [Mass/Vol] 21 mg/dL Normal 7-25 [facility] Comment on above: Performed By: #### Ezekiel Lewis, CBC, BMP ####[place] [id number] [facility] Complete Blood Count Auto Di ffon 06-25-2023 Basophils (Bld) [#/Vol] 0.1 10*3/uL Normal 0.0-0.2 [facility] Comment on above: Result Comment: PERF ORMED BY:[address] [place], [place] [phone] MEDICAL DIRECTORDEAN MCIWLLIAMS M.D. Performed By: #### M G, CBC, BMP ####[place] [id number] [place] Basophils/100 WBC (Bld) 1.0 % Normal . [facility] Comment on above: Performed By: #### M G, CBC, BMP ####[address] Eosinophils (Bld) [#/Vol] 0.2 10*3/uL Normal 0.0-0.45 [facility] Comment on above: Performed By: #### M G, CBC, BMP ####[address] Eosinophils/100 WBC (Bld) 3.7 % Normal . [facility] Comment on above: Performed By: #### M G, CBC, BMP ####[address] Erythrocyte distribution width (RBC) [Ratio] 15.5 % High 12.0-14.8 [facility] Comment on above: Performed By: #### M G, CBC, BMP ####[address] Hematocrit (Bld) [Volume fraction] 30.8 % Low 38.8-50.0 [facility] Comment on above: Performed By: #### M G, CBC, BMP ####[address] Hemoglobin (Bld) [Mass/Vol] 10.3 g/dL Low 13.0-17.0 [facility] Comment on above: Performed By: #### M G, CBC, BMP ####[address] Lymphocytes (Bld) [#/Vol] 1.0 10*3/uL Normal 1.00-4.8 [facility] Comment on above: Performed By: #### M G, CBC, BMP ####[address] Lymphocytes/100 WBC (Bld) 17.2 % Normal . [facility] Comment on above: Performed By: #### M G, CBC, BMP ####[address] MCH (RBC) [Entitic mass] 29.1 pg Normal 27.5-35.2 [facility] Comment on above: Performed By: #### M G, CBC, BMP ####[address] MCV (RBC) [Entitic vol] 87.2 fL Normal 83.5-101 [facility] Comment on above: Performed By: #### M G, CBC, BMP ####[address] Mean Corpuscular HGB Conc 33.3 g/dL Normal 32.5-35.6 [facility] Comment on above: Performed By: #### M G, CBC, BMP ####[address] Monocytes (Bld) [#/Vol] 1.2 10*3/uL High 0.0-0.8 [facility] Comment on above: Performed By: #### M G, CBC, BMP ####[address] Monocytes/100 WBC (Bld) 21.5 % Normal . [facility] Comment on above: Performed By: #### M G, CBC, BMP ####[address] Neutrophils (Bld) [#/Vol] 3.2 10*3/uL Normal 1.8-7.7 [facility] Comment on above: Performed By: #### M G, CBC, BMP ####[address] Neutrophils/100 WBC (Bld) 56.6 % Normal . [facility] Comment on above: Performed By: #### M G, CBC, BMP ####[address] NRBC% 0.1 /100{WBC} Normal 0-0.5 [facility] Comment on above: Performed By: #### M G, CBC, BMP ####[facility] [place] [address] [facility] Platelet mean volume (Bld) [Entitic vol] 7.9 fL Normal 6.6-10.1 [facility] Comment on above: Performed By: #### M G, CBC, BMP ####[address] [address] [facility] Platelets (Bld) [#/Vol] 276 10*3/uL Normal 150-450 [facility] Comment on above: Performed By: #### M G, CBC, BMP ####[address] [address] [facility] RBC (Bld) [#/Vol] 3.53 10*6/uL Low 3.90-5.60 [facility] Comment on above: Performed By: #### M G, CBC, BMP ####[address] [address] [facility] WBC (Bld) [#/Vol] 5.7 10*3/uL Normal 4.1-10.5 [facility] Comment on above: Performed By: #### M G, CBC, BMP ####[place] [id number] [facility] ECG 12 lead ECGon 06-25-2023 ECG 12 lead ECG Normal [facility] Glucose Poct Glucometerson 0 06-25-2023 Glucose [Mass/Vol] 135 mg/dL Normal [facility] Comment on above: Result Comment: [facility] Glucose Reference Range is dependent on time and content of last meal. Glucose of more than 200 mg/dL in a nonstressed, ambulatory subject supports the diagnosis of Diabetes Mellitus.PERFORMED BY:[address] [place], [place] [phone] MEDICAL DIRECTORDEAN MCWILLIAMS M.D. Performed By: #### G LULS ####Point of Care testing, Glucose [Mass/Vol] 270 mg/dL Normal [facility] Comment on above: Result Comment: [facility] Glucose Reference Range is dependent on time and content of last meal. Glucose of more than 200 mg/dL in a nonstressed, ambulatory subject supports the diagnosis of Diabetes Mellitus.PERFORMED BY:[place] [address] [place], [place] [phone] MEDICAL DIRECTORDEAN MCWILLIAMS M.D. Performed By: #### G LULS ####Point of Care testing, Glucose [Mass/Vol] 103 mg/dL Normal [facility] Comment on above: Result Comment: [place] Glucose Reference Range is dependent on time and content of last meal. Glucose of more than 200 mg/dL in a nonstressed, ambulatory subject supports the diagnosis of Diabetes Mellitus.PERFORMED BY:[place] [address] [place], [place] [phone] MEDICAL DIRECTORDEAN MCWILLIAMS M.D. Performed By: #### G LULS ####Point of Care testing, Commemt1 Glu2: Cleaned Meter Normal [facility] Comment on above: Result Comment: PERF ORMED BY:[place] [address] [address] [place], [place] [phone] MEDICAL DIRECTORDEAN MCWILLIAMS M.D. Performed By: #### G LULS ####Point of Care testing, Glucose [Mass/Vol] 121 mg/dL Normal [facility] Comment on above: Result Comment: [place] Glucose Reference Range is dependent on time and content of last meal. Glucose of more than 200 mg/dL in a nonstressed, ambulatory subject supports the diagnosis of Diabetes Mellitus. Performed By: #### G LULS ####Point of Care testing, Glucose [Mass/Vol] 120 mg/dL Normal [facility] Comment on above: Result Comment: [place] Glucose Reference Range is dependent on time and content of last meal. Glucose of more than 200 mg/dL in a nonstressed, ambulatory subject supports the diagnosis of Diabetes Mellitus.PERFORMED BY:[place] [address] [address] [place], [place] [phone] MEDICAL JAKE MCWILLIAMS M.D. Performed By: #### G LULS ####Point of Care testing, Gram stain for investigation of transfusion reactionOrdered By: Felisa Win on 06-25-2023 Microscopic observation Gram stain Nom (Unsp spec) Corynebacterium striatum group Abnormal [facility] Microscopic observation Gram stain Nom (Unsp spec) Methicillin Resis Staph Aureus Abnormal [facility] Raghu 06-25-2023 L Normal [facility] Magnesiumon 06-25-2023 Magnesium [Mass/Vol] 1.9 mg/dL Normal 1.9-2.7 [facility] Comment on above: Result Comment: PERF ORMED BY:[address], [place] [phone] MEDICAL DIRECTORDEAN MCWILLIAMS M.D. Performed By: #### Ezekiel Lewis CBC, BMP ####[place] [id number] [facility] Basic Metabolic Panelon 06-11 Anion gap [Moles/Vol] 15.1 mmol/L High 6.0-15.0 [facility] e [facility] Comment on above: Performed By: #### Ezekiel Lewis BMP, CBC ####[place] [address] [facility] Calcium [Mass/Vol] 9.0 mg/dL Normal 8.6-10.3 [facility] Comment on above: Performed By: #### Ezekiel Lewis BMP, CBC ####[place] [address] [facility] Chloride [Moles/Vol] 93 mmol/L Low 98-107 [facility] Comment on above: Performed By: #### Ezekiel Lewis BMP, CBC ####[place] [address] [facility] CO2 [Moles/Vol] 29.0 mmol/L Normal 21.0-31.0 [facility] Comment on above: Performed By: #### Ezekiel Lewis BMP, CBC ####[place] [address] [facility] Creatinine [Mass/Vol] 9.61 mg/dL Significan t change up 0.70-1.30 [facility] Comment on above: Performed By: #### Ezekiel Lewis BMP, CBC ####[place] [address] Creatinine Clr Calc Pharmacy 8.55 Normal [facility] Comment on above: Performed By: #### SIGIFREDO Bae, CBC ####[place] [address] [facility] GFR/1.73 sq M.predicted MDRD (S/P/Bld) [Vol rate/Area] 5.459 mL/min/{1.73_m2} Normal [facility] Comment on above: Performed By: #### SIGIFREDO Bae, CBC ####[address] Glucose [Mass/Vol] 66 mg/dL Significant change down 70-100 [facility] Comment on above: Result Comment: [facility] Glucose Reference Range is dependent on time and content of last meal. Glucose of more than 200 mg/dL in a nonstressed, ambulatory subject supports the diagnosis of Diabetes Mellitus. ADA recommended reference range Performed By: #### SIGIFREDO Bae, CBC ####[address] Potassium [Moles/Vol] 4.1 mmol/L Normal 3.5-5.1 [facility] Comment on above: Performed By: #### ISGIFREDO Bae, CBC ####[address] Sodium [Moles/Vol] 133 mmol/L Significant change down 136-145 [facility] Comment on above: Performed By: #### SIGIFREDO Bae, CBC ####[place] [id number] [facility] Urea nitrogen [Mass/Vol] 42 mg/dL High 7-25 [facility] Comment on above: Performed By: #### SIGIFREDO Bae, CBC ####[address] Complete Blood Count Auto Di ffon 06-24-2023 Basophils (Bld) [#/Vol] 0.0 10*3/uL Normal 0.0-0.2 [facility] Comment on above: Result Comment: PERF ORMED BY:[address] [place], [place] [phone] MEDICAL DIRECTORDEAN MCWILLIAMS M.D. Performed By: #### M SIGIFREDO Lewis, CBC ####[address] Basophils/100 WBC (Bld) 0.7 % Normal . [facility] Comment on above: Performed By: #### SIGIFREDO Bae, CBC ####[address] Eosinophils (Bld) [#/Vol] 0.2 10*3/uL Normal 0.0-0.45 [facility] Comment on above: Performed By: #### SIGIFREDO Bae, CBC ####[address] Eosinophils/100 WBC (Bld) 3.4 % Normal . [facility] Comment on above: Performed By: #### SIGIFREDO Bae, CBC ####[address] Erythrocyte distribution width (RBC) [Ratio] 15.3 % High 12.0-14.8 [facility] Comment on above: Performed By: #### SIGIFREDO Bae, CBC ####[address] Hematocrit (Bld) [Volume fraction] 28.9 % Low 38.8-50.0 [facility] Comment on above: Performed By: #### SIGIFREDO Bae, CBC ####[address] Hemoglobin (Bld) [Mass/Vol] 9.7 g/dL Low 13.0-17.0 [facility] Comment on above: Performed By: #### SIGIFREDO Bea, CBC ####[address] Lymphocytes (Bld) [#/Vol] 1.1 10*3/uL Normal 1.00-4.8 [facility] Comment on above: Performed By: #### M G, BMP, CBC ####[address] Lymphocytes/100 WBC (Bld) 17.4 % Normal . [facility] Comment on above: Performed By: #### M G, BMP, CBC ####[place] [id number] [facility] MCH (RBC) [Entitic mass] 29.2 pg Normal 27.5-35.2 [facility] Comment on above: Performed By: #### M G, BMP, CBC ####[address] MCV (RBC) [Entitic vol] 86.8 fL Normal 83.5-101 [facility] Comment on above: Performed By: #### Ezekiel Lewis, BMP, CBC ####[address] Mean Corpuscular HGB Conc 33.6 g/dL Normal 32.5-35.6 [facility] Comment on above: Performed By: #### Ezekiel Lewis, BMP, CBC ####[address] Monocytes (Bld) [#/Vol] 1.4 10*3/uL High 0.0-0.8 [facility] Comment on above: Performed By: #### Ezekiel Lewis, BMP, CBC ####[place] [address] [facility] Monocytes/100 WBC (Bld) 22.5 % Normal . [facility] Comment on above: Performed By: #### Ezekiel G, BMP, CBC ####[place] [id number] [facility] Neutrophils (Bld) [#/Vol] 3.6 10*3/uL Normal 1.8-7.7 [facility] Comment on above: Performed By: #### Ezekiel G, BMP, CBC ####[place] [address] [facility] Neutrophils/100 WBC (Bld) 56.0 % Normal . [facility] Comment on above: Performed By: #### M Debbie BMP, CBC ####[place] [id number] [facility] NRBC% 0.1 /100{WBC} Normal 0-0.5 [facility] Comment on above: Performed By: #### Ezekiel Lewis BMP, CBC ####[place] [id number] [facility] Platelet mean volume (Bld) [Entitic vol] 7.6 fL Normal 6.6-10.1 [facility] Comment on above: Performed By: #### Ezekiel Lewis BMP, CBC ####[address] Platelets (Bld) [#/Vol] 270 10*3/uL Normal 150-450 [facility] Comment on above: Performed By: #### Ezekiel Lewis BMP, CBC ####[address] RBC (Bld) [#/Vol] 3.33 10*6/uL Low 3.90-5.60 [facility] Comment on above: Performed By: #### SIGIFREDO Bae, CBC ####[place] [id number] [facility] WBC (Bld) [#/Vol] 6.4 10*3/uL Normal 4.1-10.5 [facility] Comment on above: Performed By: #### SIGIFREDO Bae, CBC ####[place] [id number] [facility] ECH echo transthoracicon ECH echo transthoracic Normal Th e [facility] Glucose Poct Glucometerson 0 06-24-2023 Glucose [Mass/Vol] 161 mg/dL Normal [facility] Comment on above: Result Comment: [facility] Glucose Reference Range is dependent on time and content of last meal. Glucose of more than 200 mg/dL in a nonstressed, ambulatory subject supports the diagnosis of Diabetes Mellitus.PERFORMED BY:[address] [place], [place] [phone] MEDICAL DIRECTORDEAN SUN M.D. Performed By: #### G LULS ####Point of Care testing, Commemt1 Glu2: Cleaned Meter Normal [facility] Comment on above: Result Comment: PERF ORMED BY:[place] [address] [address] [place]ODRIGUEZNikkyADEP[place], [place] [phone] MEDICAL JAKE MCWILLIAMS M.D. Performed By: #### G LULS ####Point of Care testing, Glucose [Mass/Vol] 279 mg/dL Normal [facility] Comment on above: Result Comment: [place] Glucose Reference Range is dependent on time and content of last meal. Glucose of more than 200 mg/dL in a nonstressed, ambulatory subject supports the diagnosis of Diabetes Mellitus. Performed By: #### G LULS ####Point of Care testing, Glucose [Mass/Vol] 151 mg/dL Normal [facility] Comment on above: Result Comment: [place] om Glucose Reference Range is dependent on time and content of last meal. Glucose of more than 200 mg/dL in a nonstressed, ambulatory subject supports the diagnosis of Diabetes Mellitus.PERFORMED BY:[address] [address] [address] ZAVALA[place]odia[place], [place] [phone] MEDICAL JAKE MCWILLIAMS M.D. Performed By: #### G LULS ####Point of Care testing, Glucose [Mass/Vol] 73 mg/dL Normal [facility] Comment on above: Result Comment: [place] Glucose Reference Range is dependent on time and content of last meal. Glucose of more than 200 mg/dL in a nonstressed, ambulatory subject supports the diagnosis of Diabetes Mellitus.PERFORMED BY:[address] [address] [address] [place]AVALAElodiaAD[place], [place] [phone] MEDICAL JAKE MCWILLIAMS M.D. Performed By: #### G LULS ####Point of Care testing, Magnesiumon 06-24-2023 Magnesium [Mass/Vol] 2.2 mg/dL Normal 1.9-2.7 [facility] Comment on above: Result Comment: PERF ORMED BY:[address] [address] [place], [place] [phone] MEDICAL DIRECTORDEAN MCWILLIAMS M.D. Performed By: #### M G, BMP, CBC ####[place] [address] [place] [id number] [facility] Anisocytosis [Presence] in B lood by Light microscopyOrdered By: Gabriel Gould on 06-23-2023 Anisocytosis Ql (Bld) Slight Normal [facility] Comment on above: Performed By: #### D IFF CBC, MG, BMP ####[address] [place] [id number] [facility] Bacterial blood cultureOrder ed By: Mary Ruffin on 06-23-2023 Bacteria identified Cx Nom (Bld) NO GROWTH 5 DAYS [facility] Bacteria identified Cx Nom (Bld) NO GROWTH 5 DAYS [facility] Basic Metabolic Panelon 06-11 Anion gap [Moles/Vol] 13.5 mmol/L Normal 6.0-15.0 Th e [facility] Comment on above: Performed By: #### D IFF CBC, MG, BMP ####[address] [place] [id number] [facility] Calcium [Mass/Vol] 8.8 mg/dL Normal 8.6-10.3 [facility] Comment on above: Performed By: #### D IFF CBC, MG, BMP ####[address] [place] [address] [facility] Chloride [Moles/Vol] 90 mmol/L Low 98-107 [facility] Comment on above: Performed By: #### D IFF CBC, MG, BMP ####[address] [place] [address] [facility] CO2 [Moles/Vol] 27.2 mmol/L Normal 21.0-31.0 [facility] Comment on above: Performed By: #### D IFF CBC, MG, BMP ####[address] [place] [address] [facility] Creatinine [Mass/Vol] 7.95 mg/dL Significan t change up 0.70-1.30 [facility] Comment on above: Performed By: #### D IFF CBC, MG, BMP ####[facility] [place] [address] [facility] Creatinine Clr Calc Pharmacy 10.35 Normal [facility] Comment on above: Performed By: #### D IFF CBC, MG, BMP ####[address] [place] [address] [place] GFR/1.73 sq M.predicted MDRD (S/P/Bld) [Vol rate/Area] 6.854 mL/min/{1.73_m2} Normal [facility] Comment on above: Performed By: #### D IFF CBC, MG, BMP ####[place] [address] Glucose [Mass/Vol] 181 mg/dL High 70-100 [facility] Comment on above: Result Comment: [place] Glucose Reference Range is dependent on time and content of last meal. Glucose of more than 200 mg/dL in a nonstressed, ambulatory subject supports the diagnosis of Diabetes Mellitus. ADA recommended reference range Performed By: #### D IFF CBC, MG, BMP ####[place] [place] [id number] [facility] Potassium [Moles/Vol] 3.7 mmol/L Normal 3.5-5.1 [facility] Comment on above: Performed By: #### D IFF CBC, MG, BMP ####[place] [id number] [facility] Sodium [Moles/Vol] 127 mmol/L Low 136-145 [facility] Comment on above: Performed By: #### D IFF CBC, MG, BMP ####[address] [place] [address] [facility] Urea nitrogen [Mass/Vol] 34 mg/dL High 7-25 [facility] Comment on above: Performed By: #### D IFF CBC, MG, BMP ####[facility] [place] [address] [place] Basophils/100 leukocytes in Blood by Manual countOrdered By: Gabriel Gould on 06-23-2023 Basophils/100 WBC (Bld) 1 % Normal 0-2 [facility] Comment on above: Performed By: #### D IFF CBC, MG, BMP ####[place] [id number] [facility] Blood Cultureon 06-23-2023 Bacteria identified Cx Nom (Bld) NO GROWTH 5 DAYS PERFORMED BY: [place] [address] PATHOLOGIST [employer] DEAN MCWILLIAMS M.D. Normal [facility] Comment on above: Performed By: #### C UBLD ####[address] Bacteria identified Cx Nom (Bld) NO GROWTH 5 DAYS PERFORMED BY: [place] [address] PATHOLOGIST [employer] DEAN MCWILLIAMS M.D. Normal [facility] Comment on above: Performed By: #### C UBLD ####[address] [place] cells [Presence] in Blo od by Light microscopyOrdered By: Gabriel Gould on 06-23-2023 [place] cells LM Ql (Bld) Slight Fi [facility] Diff and CBCon 06-23-2023 Crenated RBC Slight Normal [facility] Comment on above: Performed By: #### D IFF CBC, MG, BMP ####[address] Erythrocyte distribution width (RBC) [Ratio] 15.4 % High 12.0-14.8 [facility] Comment on above: Performed By: #### D IFF CBC, MG, BMP ####[address] Hematocrit (Bld) [Volume fraction] 29.3 % Low 38.8-50.0 [facility] Comment on above: Performed By: #### D IFF CBC, MG, BMP ####[address] Hemoglobin (Bld) [Mass/Vol] 9.8 g/dL Low 13.0-17.0 [facility] Comment on above: Performed By: #### D IFF CBC, MG, BMP ####[address] MCH (RBC) [Entitic mass] 29.4 pg Normal 27.5-35.2 [facility] Comment on above: Performed By: #### D IFF CBC, MG, BMP ####[address] MCV (RBC) [Entitic vol] 87.8 fL Normal 83.5-101 [facility] Comment on above: Performed By: #### D IFF CBC, MG, BMP ####[address] Mean Corpuscular HGB Conc 33.5 g/dL Normal 32.5-35.6 [facility] Comment on above: Performed By: #### D IFF CBC, MG, BMP ####[address] Metamyelocytes 1 % High 0-0 [facility] Comment on above: Performed By: #### D IFF CBC, MG, BMP ####[address] Myelocytes 1 % High 0-0 [facility] Comment on above: Performed By: #### D IFF CBC, MG, BMP ####[address] Platelet Estimate Normal Normal Normal [facility] Comment on above: Performed By: #### D IFF CBC, MG, BMP ####[address] Platelet mean volume (Bld) [Entitic vol] 7.8 fL Normal 6.6-10.1 [facility] Comment on above: Performed By: #### D IFF CBC, MG, BMP ####[address] Platelet Morphology Normal Normal Normal [facility] Comment on above: Result Comment: PERF ORMED BY:[address] [place], [place] [phone] MEDICAL DIRECTORDEAN MCWILLIAMS M.D. Performed By: #### D IFF CBC, MG, BMP ####[address] [place] [address] [facility] Platelets (Bld) [#/Vol] 277 10*3/uL Normal 150-450 [facility] Comment on above: Performed By: #### D IFF CBC, MG, BMP ####[address] [place] [address] [facility] Polychromasia Slight Normal [facility] Comment on above: Performed By: #### D IFF CBC, MG, BMP ####[address] [address] [facility] RBC (Bld) [#/Vol] 3.34 10*6/uL Low 3.90-5.60 [facility] Comment on above: Performed By: #### D IFF CBC, MG, BMP ####[address] [place] [address] [facility] WBC (Bld) [#/Vol] 5.6 10*3/uL Normal 4.1-10.5 [facility] Comment on above: Performed By: #### D IFF CBC, MG, BMP ####[address] [address] [facility] ECG 12 lead ECGon 06-23-2023 ECG 12 lead ECG Normal [facility] Eosinophils/100 leukocytes i n Blood by Manual countOrdered By: Gabriel Gould on 06-23-2023 Eosinophils/100 WBC (Bld) 3 % Normal 1-3 [facility] Comment on above: Performed By: #### D IFF CBC, MG, BMP ####[facility] [place] [address] [facility] Glucose Poct Glucometerson 0 06-23-2023 Glucose [Mass/Vol] 295 mg/dL Normal [facility] Comment on above: Result Comment: [place] Glucose Reference Range is dependent on time and content of last meal. Glucose of more than 200 mg/dL in a nonstressed, ambulatory subject supports the diagnosis of Diabetes Mellitus.PERFORMED BY:[address] JENNIFERBensonElodiaADEPINE [place], [place] [phone] MEDICAL DIRECTORDEAN MCWILLIAMS M.D. Performed By: #### G LULS ####Point of Care testing, Glucose [Mass/Vol] 107 mg/dL Normal [facility] Comment on above: Result Comment: [facility] Glucose Reference Range is dependent on time and content of last meal. Glucose of more than 200 mg/dL in a nonstressed, ambulatory subject supports the diagnosis of Diabetes Mellitus.PERFORMED BY:[address] ZAVALA[place]odiaADE, [place] [phone] MEDICAL DIRECTORDEAN MCWILLIAMS M.D. Performed By: #### G LULS ####Point of Care testing, Glucose [Mass/Vol] 265 mg/dL Normal [facility] Comment on above: Result Comment: [facility] Glucose Reference Range is dependent on time and content of last meal. Glucose of more than 200 mg/dL in a nonstressed, ambulatory subject supports the diagnosis of Diabetes Mellitus.PERFORMED BY:[place] [place]AVALAElodiaADEP[place], [place] [phone] MEDICAL JAKE MCWILLIAMS M.D. Performed By: #### G LULS ####Point of Care testing, Glucose [Mass/Vol] 173 mg/dL Normal [facility] Comment on above: Result Comment: [facility] Glucose Reference Range is dependent on time and content of last meal. Glucose of more than 200 mg/dL in a nonstressed, ambulatory subject supports the diagnosis of Diabetes Mellitus.PERFORMED BY:[address] ZAVALAElodiaADEP[place], [place] [phone] MEDICAL JAKE MCWILLIAMS M.D. Performed By: #### G LULS ####Point of Care testing, Lymphocytes/100 leukocytes i n Blood by Manual countOrdered By: Gabriel Gould on 06-23-2023 Lymphocytes/100 WBC (Bld) 15 % Low 18-42 [facility] Comment on above: Performed By: #### D IFF CBC, MG, BMP ####[place] [address] [place] [id number] [facility] Magnesiumon 06-23-2023 Magnesium [Mass/Vol] 2.1 mg/dL Normal 1.9-2.7 [facility] Comment on above: Result Comment: PERF ORMED BY:[address] [place], [place] [phone] MEDICAL DIRECTORDEAN MCWILLIAMS M.D. Performed By: #### D IFF CBC, MG, BMP ####[place] [place] [id number] [facility] Manual blood segmented neutr ophils/100 leukocytesOrdered By: Gabriel Gould on 06-23-2023 Segmented neutrophils/100 WBC (Bld) 65 % Normal 50-70 [facility] Comment on above: Performed By: #### D IFF CBC, MG, BMP ####[address] [address] [facility] Metamyelocytes/100 WBC Manua l cnt (Bld)Ordered By: Gabriel Gould on 06-23-2023 Metamyelocytes/100 WBC (Bld) 1 % High 0-0 [facility] Monocytes/100 leukocytes in Blood by Manual countOrdered By: Gabriel Gould on 06-23-2023 Monocytes/100 WBC (Bld) 15 % High 2-11 [facility] Comment on above: Performed By: #### D IFF CBC, MG, BMP ####[place] [id number] [facility] Myelocytes/100 WBC Manual cn t (Bld)Ordered By: Gabriel Gould on 06-23-2023 Myelocytes/100 WBC (Bld) 1 % High 0-0 [facility] Platelet adequacy [Presence] in Blood by Light microscopyOrdered By: Gabriel Gould on 06-23-2023 Platelets LM Ql (Bld) Normal Normal [facility] Platelet morphology finding [Identifier] in BloodOrdered By: Gabriel Gould on 06-23-2023 Platelet morphology finding Nom (Bld) Normal Normal [facility] Polychromasia [Presence] in Blood by Light microscopyOrdered By: Gabriel Gould on 06-23-2023 Polychromasia LM Ql (Bld) Slight [facility] RBC morphologyOrdered By: Wood Gould on 06-23-2023 RBC morphology finding Nom (Bld) N/A [facility] Bacteria identified Aer cx N om (Unsp spec)Ordered By: Roney Aparicio on 06-22-2023 Superficial Wound Culture Methicillin Resis Staph Aureus Abnormal [facility] Basic Metabolic Panelon 06-11 Anion gap [Moles/Vol] 11.2 mmol/L Normal 6.0-15.0 Th e [facility] Comment on above: Performed By: #### C BC, MG, BMP ####[place] [address] [place] [id number] [facility] Calcium [Mass/Vol] 8.9 mg/dL Normal 8.6-10.3 [facility] Comment on above: Performed By: #### C BC, MG, BMP ####[place] [address] [place] [id number] [facility] Chloride [Moles/Vol] 93 mmol/L Low 98-107 [facility] Comment on above: Performed By: #### C BC, MG, BMP ####[address] [place] [address] [facility] CO2 [Moles/Vol] 30.6 mmol/L Normal 21.0-31.0 [facility] Comment on above: Performed By: #### C BC, MG, BMP ####[facility] [place] [address] [place] Creatinine [Mass/Vol] 5.87 mg/dL Significan t change up 0.70-1.30 [facility] Comment on above: Performed By: #### C BC, MG, BMP ####[facility] [place] [address] [place] Creatinine Clr Calc Pharmacy 14.01 Normal [facility] Comment on above: Performed By: #### C BC, MG, BMP ####[place] [address] [facility] GFR/1.73 sq M.predicted MDRD (S/P/Bld) [Vol rate/Area] 9.864 mL/min/{1.73_m2} Normal [facility] Comment on above: Performed By: #### C BC, MG, BMP ####[address] Glucose [Mass/Vol] 268 mg/dL High 70-100 [facility] Comment on above: Result Comment: [facility] Glucose Reference Range is dependent on time and content of last meal. Glucose of more than 200 mg/dL in a nonstressed, ambulatory subject supports the diagnosis of Diabetes Mellitus. ADA recommended reference range Performed By: #### C BC, MG, BMP ####[place] [address] [facility] Potassium [Moles/Vol] 3.8 mmol/L Normal 3.5-5.1 [facility] Comment on above: Performed By: #### C BC, MG, BMP ####[place] [address] [facility] Sodium [Moles/Vol] 131 mmol/L Low 136-145 [facility] Comment on above: Performed By: #### C BC, MG, BMP ####[place] [address] [facility] Urea nitrogen [Mass/Vol] 22 mg/dL Normal 7-25 [facility] Comment on above: Performed By: #### C BC, MG, BMP ####[place] [address] [facility] Complete Blood Count Auto Di ffon 06-22-2023 Basophils (Bld) [#/Vol] 0.0 10*3/uL Normal 0.0-0.2 [facility] Comment on above: Result Comment: PERF ORMED BY:[address] [place], [place] [phone] MEDICAL DIRECTORDEAN MCWILLIAMS M.D. Performed By: #### C BC, MG, BMP ####[address] Basophils/100 WBC (Bld) 0.9 % Normal . [facility] Comment on above: Performed By: #### C BC, MG, BMP ####[address] Eosinophils (Bld) [#/Vol] 0.1 10*3/uL Normal 0.0-0.45 [facility] Comment on above: Performed By: #### C BC, MG, BMP ####[address] Eosinophils/100 WBC (Bld) 2.9 % Normal . [facility] Comment on above: Performed By: #### C BC, MG, BMP ####[address] Erythrocyte distribution width (RBC) [Ratio] 15.1 % High 12.0-14.8 [facility] Comment on above: Performed By: #### C BC, MG, BMP ####[address] Hematocrit (Bld) [Volume fraction] 29.5 % Low 38.8-50.0 [facility] Comment on above: Performed By: #### C BC, MG, BMP ####[address] Hemoglobin (Bld) [Mass/Vol] 9.7 g/dL Low 13.0-17.0 [facility] Comment on above: Performed By: #### C BC, MG, BMP ####[address] Lymphocytes (Bld) [#/Vol] 0.6 10*3/uL Low 1.00-4.8 [facility] Comment on above: Performed By: #### C BC, MG, BMP ####[address] Lymphocytes/100 WBC (Bld) 12.4 % Normal . [facility] Comment on above: Performed By: #### C BC, MG, BMP ####[address] MCH (RBC) [Entitic mass] 29.0 pg Normal 27.5-35.2 [facility] Comment on above: Performed By: #### C BC, MG, BMP ####[address] MCV (RBC) [Entitic vol] 88.4 fL Normal 83.5-101 [facility] Comment on above: Performed By: #### C BC, MG, BMP ####[address] Mean Corpuscular HGB Conc 32.8 g/dL Normal 32.5-35.6 [facility] Comment on above: Performed By: #### C BC, MG, BMP ####[address] Monocytes (Bld) [#/Vol] 1.5 10*3/uL High 0.0-0.8 [facility] Comment on above: Performed By: #### C BC, MG, BMP ####[address] Monocytes/100 WBC (Bld) 30.2 % Normal . [facility] Comment on above: Performed By: #### C BC, MG, BMP ####[address] Neutrophils (Bld) [#/Vol] 2.7 10*3/uL Normal 1.8-7.7 [facility] Comment on above: Performed By: #### C BC, MG, BMP ####[address] Neutrophils/100 WBC (Bld) 53.6 % Normal . [facility] Comment on above: Performed By: #### C BC, MG, BMP ####[address] NRBC% 0.2 /100{WBC} Normal 0-0.5 [facility] Comment on above: Performed By: #### C BC, MG, BMP ####[address] Platelet mean volume (Bld) [Entitic vol] 7.4 fL Normal 6.6-10.1 [facility] Comment on above: Performed By: #### C BC, MG, BMP ####[place] [id number] [facility] Platelets (Bld) [#/Vol] 236 10*3/uL Normal 150-450 [facility] Comment on above: Performed By: #### C BC, MG, BMP ####[address] RBC (Bld) [#/Vol] 3.34 10*6/uL Low 3.90-5.60 [facility] Comment on above: Performed By: #### C BC, MG, BMP ####[address] WBC (Bld) [#/Vol] 4.9 10*3/uL Normal 4.1-10.5 [facility] Comment on above: Performed By: #### C BC MG, BMP ####[place] [id number] [facility] Glucose Poct Glucometerson 0 - Glucose [Mass/Vol] 319 mg/dL Normal [facility] Comment on above: Result Comment: [facility] Glucose Reference Range is dependent on time and content of last meal. Glucose of more than 200 mg/dL in a nonstressed, ambulatory subject supports the diagnosis of Diabetes Mellitus.PERFORMED BY:[address] [place], [place] [phone] MEDICAL DIRECTORDEAN MCWILLIAMS M.D. Performed By: #### G LUELLIS ####Point of Care testing, Commemt1 Glu2: Cleaned Meter Normal [facility] Comment on above: Result Comment: PERF ORMED BY:[address] [address] [address] [place], [place] [phone] MEDICAL JAKE MCWILLIAMS M.D. Performed By: #### G LULS ####Point of Care testing, Glucose [Mass/Vol] 106 mg/dL Normal [facility] Comment on above: Result Comment: [place] om Glucose Reference Range is dependent on time and content of last meal. Glucose of more than 200 mg/dL in a nonstressed, ambulatory subject supports the diagnosis of Diabetes Mellitus. Performed By: #### G LULS ####Point of Care testing, Commemt1 Glu2: Cleaned Meter Normal [facility] Comment on above: Result Comment: PERF ORMED BY:[address] [place], [place] [phone] MEDICAL DIRECTORDEAN MCWILLIAMS M.D. Performed By: #### G LULS ####Point of Care testing, Glucose [Mass/Vol] 140 mg/dL Normal [facility] Comment on above: Result Comment: [place] om Glucose Reference Range is dependent on time and content of last meal. Glucose of more than 200 mg/dL in a nonstressed, ambulatory subject supports the diagnosis of Diabetes Mellitus. Performed By: #### G LULS ####Point of Care testing, Glucose [Mass/Vol] 260 mg/dL Normal [facility] Comment on above: Result Comment: [place] om Glucose Reference Range is dependent on time and content of last meal. Glucose of more than 200 mg/dL in a nonstressed, ambulatory subject supports the diagnosis of Diabetes Mellitus.PERFORMED BY:[address] [place], [place] [phone] MEDICAL JAKE MCWILLIAMS M.D. Performed By: #### G LULS ####Point of Care testing, Magnesiumon 06-22-2023 Magnesium [Mass/Vol] 2.1 mg/dL Normal 1.9-2.7 [facility] Comment on above: Result Comment: PERF ORMED BY:[place] [address] [address] [place]ONEYCUTTYP[place], [place] [phone] MEDICAL JAKE MCWILLIAMS M.D. Performed By: #### C BC, MG, BMP ####[place] [id number] [facility] Superficial Wound Cultureon 06-22-2023 Superficial Wound Culture Normal [facility] Comment on above: Performed By: #### C USUP ####[place] [id number] [facility] Alanine aminotransferase [En zymatic activity/volume] in Serum or PlasmaOrdered By: Philip Chatman on 06-21-2023 ALT [Catalytic activity/Vol] 21 U/L Normal 7-52 [facility] Comment on above: Performed By: #### C BC, CUBLD, CMP, LACTIC, ESR, CRP ####[address] Albumin [Mass/volume] in Ser um or Plasma by Bromocresol green (BCG) dye binding methoOrdered By: Philip Chatman on 06-21-2023 Albumin BCG dye [Mass/Vol] 3.3 g/dL Low 3.5-5.7 [facility] Alkaline phosphatase [Enzyma tic activity/volume] in Serum or PlasmaOrdered By: Philip Chatman on 06-21-2023 ALP [Catalytic activity/Vol] 64 U/L Normal 34-104 [facility] Comment on above: Performed By: #### C BC, CUBLD, CMP, LACTIC, ESR, CRP ####[place] [id number] [facility] Aspartate aminotransferase [ Enzymatic activity/volume] in Serum or PlasmaOrdered By: Philip Chatman on 06-21-2023 AST [Catalytic activity/Vol] 35 U/L Normal 13-39 [facility] Comment on above: Performed By: #### C BC, CUBLD, CMP, LACTIC, ESR, CRP ####[address] Automated basophil %Ordered By: Philip Chatman on 06-21-2023 Basophils/100 WBC (Bld) 0.6 % Normal . [facility] Comment on above: Performed By: #### C BC, CUBLD, CMP, LACTIC, ESR, CRP ####[address] [place] [address] [place] Automated basophil countOrde red By: Philip Chatman on 06-21-2023 Basophils (Bld) [#/Vol] 0.0 10*3/uL Normal 0.0-0.2 [facility] Comment on above: Performed By: #### C BC, CUBLD, CMP, LACTIC, ESR, CRP ####[address] Automated blood monocyte cou ntOrdered By: Philip Chatman on 06-21-2023 Monocytes (Bld) [#/Vol] 1.2 10*3/uL High 0.0-0.8 [facility] Comment on above: Performed By: #### C BC, CUBLD, CMP, LACTIC, ESR, CRP ####[address] Automated eosinophil %Ordere d By: Philip Chatman on 06-21-2023 Eosinophils/100 WBC (Bld) 1.1 % Normal . [facility] Comment on above: Performed By: #### C BC, CUBLD, CMP, LACTIC, ESR, CRP ####[address] Automated eosinophil countOr dered By: Philip Chatman on 06-21-2023 Eosinophils (Bld) [#/Vol] 0.1 10*3/uL Normal 0.0-0.45 [facility] Comment on above: Performed By: #### C BC, CUBLD, CMP, LACTIC, ESR, CRP ####[address] Automated monocyte %Ordered By: Philip Chatman on 06-21-2023 Monocytes/100 WBC (Bld) 16.2 % Normal . [facility] Comment on above: Performed By: #### C BC, CUBLD, CMP, LACTIC, ESR, CRP ####[address] Automated neutrophil %Ordere d By: Philip Chatman on 06-21-2023 Neutrophils/100 WBC (Bld) 74.6 % Normal . [facility] Comment on above: Performed By: #### C BC, CUBLD, CMP, LACTIC, ESR, CRP ####[place] [id number] [facility] Bacterial blood cultureOrder ed By: Philip Chatman on 06-21-2023 Bacteria identified Cx Nom (Bld) Methicillin Resis Staph Aureus Abnormal [facility] Bilirubin.total [Mass/volume ] in Serum or PlasmaOrdered By: Philip Chatman on 06-21-2023 Bilirubin [Mass/Vol] 1.0 mg/dL Normal 0.3-1.0 [facility] Comment on above: Performed By: #### C BC, CUBLD, CMP, LACTIC, ESR, CRP ####[place] [id number] [facility] Blood Cultureon 06-21-2023 Bacteria identified Cx Nom (Bld) Normal [facility] Comment on above: Performed By: #### C BC, CUBLD, CMP, LACTIC, ESR, CRP ####[place] [id number] [facility] Bacteria identified Cx Nom (Bld) Normal [facility] Comment on above: Performed By: #### C BC, CUBLD, CMP, LACTIC, ESR, CRP ####[place] [id number] [facility] C reactive protein [Mass/vol ume] in Serum or PlasmaOrdered By: Philip Chatman on 06-21-2023 CRP [Mass/Vol] 25.6 mg/dL High 0.0-0.5 [facility] C-Reactive Proteinon 024 C-Reactive Protein 25.6 mg/dL High 0.0-0.5 [facility] Comment on above: Result Comment: PERF ORMED BY:[address] [place], [place] [phone] MEDICAL DIRECTORDEAN MCWILLIAMS M.D. Performed By: #### C BC, CUBLD, CMP, LACTIC, ESR, CRP ####[place] [id number] [facility] Calcium [Mass/volume] in Ser um or PlasmaOrdered By: Philip Chatman on 06-21-2023 Calcium [Mass/Vol] 9.4 mg/dL Normal 8.6-10.3 [facility] Comment on above: Performed By: #### C BC, CUBLD, CMP, LACTIC, ESR, CRP ####[address] Carbon dioxide, total [Moles /volume] in Serum or PlasmaOrdered By: Philip Chatman on 06-21-2023 CO2 [Moles/Vol] 30.6 mmol/L Normal 21.0-31.0 [facility] Comment on above: Performed By: #### C BC, CUBLD, CMP, LACTIC, ESR, CRP ####[address] Chloride [Moles/volume] in S bushra or PlasmaOrdered By: Philip Chatman on 06-21-2023 Chloride [Moles/Vol] 92 mmol/L Low 98-107 [facility] Comment on above: Performed By: #### C BC, CUBLD, CMP, LACTIC, ESR, CRP ####[address] Complete Blood Count Auto Di ffon 06-21-2023 Mean Corpuscular HGB Conc 33.5 g/dL Normal 32.5-35.6 [facility] Comment on above: Performed By: #### C BC, CUBLD, CMP, LACTIC, ESR, CRP ####[address] Monocytes/100 WBC (Bld) 24.17 % High 0.00-20.00 [facility] Comment on above: Result Comment: For adults in ED, MDW > 20.0 may be associated with a higher risk of sepsis during the first 12 hrs of hospital admission Performed By: #### C BC, CUBLD, CMP, LACTIC, ESR, CRP ####[place] [id number] [facility] NRBC% 0.1 /100{WBC} Normal 0-0.5 [facility] Comment on above: Performed By: #### C BC, CUBLD, CMP, LACTIC, ESR, CRP ####[address] [address] [facility] Comprehensive Metabolic Pane raghu 06-21-2023 Albumin [Mass/Vol] 3.3 g/dL Low 3.5-5.7 [facility] Comment on above: Performed By: #### C BC, CUBLD, CMP, LACTIC, ESR, CRP ####[place] [id number] [facility] Creatinine Clr Calc Pharmacy 18.34 Normal [facility] Comment on above: Performed By: #### C BC, CUBLD, CMP, LACTIC, ESR, CRP ####[address] GFR/1.73 sq M.predicted MDRD (S/P/Bld) [Vol rate/Area] 13.678 mL/min/{1.73_m2} Normal [facility] Comment on above: Performed By: #### C BC, CUBLD, CMP, LACTIC, ESR, CRP ####[place] [id number] [facility] Creatinine [Mass/volume] in Serum or PlasmaOrdered By: Philip Chatman on 06-21-2023 Creatinine [Mass/Vol] 4.47 mg/dL High 0.70-1.30 [facility] Comment on above: Performed By: #### C BC, CUBLD, CMP, LACTIC, ESR, CRP ####[place] [id number] [facility] Erythrocyte Sedimentation Ra kunal 06-21-2023 ESR (Bld) [Velocity] 97 mm/h High 0-19 [facility] Comment on above: Result Comment: PERF ORMED BY:[address] [place], [place] [phone] MEDICAL DIRECTORDEAN MCWILLIAMS M.D. Performed By: #### C BC, CUBLD, CMP, LACTIC, ESR, CRP ####[place] [id number] [facility] Erythrocyte distribution wid th [Ratio] by Automated countOrdered By: Philip Chatman on 06-21-2023 Erythrocyte distribution width (RBC) [Ratio] 15.3 % High 12.0-14.8 [facility] Comment on above: Performed By: #### C BC, CUBLD, CMP, LACTIC, ESR, CRP ####[facility] [place] [id number] [facility] Erythrocyte sedimentation ra te by Photometric methodOrdered By: Philip Chatman on 06-21-2023 ESR Photometric method (Bld) [Velocity] 97 mm/hr High 0-19 [facility] Erythrocytes [#/volume] in B lood by Automated countOrdered By: Philip Chatman on 06-21-2023 RBC (Bld) [#/Vol] 3.83 10*6/uL Low 3.90-5.60 [facility] Comment on above: Performed By: #### C BC, CUBLD, CMP, LACTIC, ESR, CRP ####[facility] [place] [id number] [facility] Glucose Poct Glucometerson 0 06-21-2023 Glucose [Mass/Vol] 222 mg/dL Normal [facility] Comment on above: Result Comment: [facility] Glucose Reference Range is dependent on time and content of last meal. Glucose of more than 200 mg/dL in a nonstressed, ambulatory subject supports the diagnosis of Diabetes Mellitus.PERFORMED BY:[address] [place], [place] [phone] MEDICAL DIRECTORDEAN MCWILLIAMS M.D. Performed By: #### G DARLENE ####Point of Care testing, Glucose [Mass/volume] in Ser um or PlasmaOrdered By: Philip Chatman on 06-21-2023 Glucose [Mass/Vol] 178 mg/dL High 70-100 [facility] Comment on above: ADA recommended refe rence rangeRandom Glucose Reference Range is dependent on time and content of last meal. Glucose of more than 200 mg/dL in a nonstressed, ambulatory subject supports the diagnosis of Diabetes Mellitus. Result Comment: [place] Glucose Reference Range is dependent on time and content of last meal. Glucose of more than 200 mg/dL in a nonstressed, ambulatory subject supports the diagnosis of Diabetes Mellitus. ADA recommended reference range Performed By: #### C BC, CUBLD, CMP, LACTIC, ESR, CRP ####[place] [address] [place] [address] [facility] Hematocrit [Volume Fraction] of Blood by Automated countOrdered By: Philip Chatman on 06-21-2023 Hematocrit (Bld) [Volume fraction] 33.5 % Low 38.8-50.0 [facility] Comment on above: Performed By: #### C BC, CUBLD, CMP, LACTIC, ESR, CRP ####[place] [address] [place] [address] [facility] Hemoglobin [Mass/volume] in BloodOrdered By: Philip Chatman on 06-21-2023 Hemoglobin (Bld) [Mass/Vol] 11.2 g/dL Low 13.0-17.0 [facility] Comment on above: Performed By: #### C BC, CUBLD, CMP, LACTIC, ESR, CRP ####[address] [address] [facility] Lactate [Moles/volume] in Se rum or PlasmaOrdered By: Philip Chatman on 06-21-2023 Lactate [Moles/Vol] 2.5 mmol/L High 0.5-2.2 [facility] Comment on above: Critical Result : Ca lled to and read back by: RONALD JIN at: 06/22/2023 00:18:18 by:[id number] Lactate [Moles/Vol] 2.0 mmol/L Off scale high 0.5-2.2 [facility] Comment on above: Critical Result : Ca lled to and read back by: GRETEL DELGADO at: 06/21/2023 20:15:23 by:[id number] Result Comment: Crit ical Result : Called to and read back by: GRETEL DELGADO at: 06/21/2023 20:15:23 by:[id number] BY:[address] [place], [place] [phone] MEDICAL DIRECTORJIANLAN SUN M.D. Performed By: #### C BC, CUBLD, CMP, LACTIC, ESR, CRP ####[place] [id number] [facility] Lactic Acid Reflexon 024 Lactic Acid Reflex 2.5 mmol/L Off scale high 0.5-2.2 [facility] Comment on above: Result Comment: Crit ical Result : Called to and read back by: RONALD JIN at: 06/22/2023 00:18:18 by:[id number] BY:[address] [place], [place] [phone] MEDICAL DIRECTORDEAN MCWILLIAMS M.D. Performed By: #### L ACTIC RFX ####[place] [id number] [facility] Leukocytes [#/volume] correc jennifer for nucleated erythrocytes in Blood by Automated counOrdered By: Philip Chatman on 06-21-2023 WBC corrected for nucl RBC Auto (Bld) [#/Vol] 7.3 10*3/uL 4.1-10.5 [facility] Leukocytes [#/volume] in Blo od by Automated countOrdered By: Philip Chatman on 06-21-2023 WBC (Bld) [#/Vol] 7.3 10*3/uL Normal 4.1-10.5 [facility] Comment on above: Performed By: #### C BC, CUBLD, CMP, LACTIC, ESR, CRP ####[place] [id number] [facility] Lymphocytes [#/volume] in Bl ood by Automated countOrdered By: Philip Chatman on 06-21-2023 Lymphocytes (Bld) [#/Vol] 0.5 10*3/uL Low 1.00-4.8 [facility] Comment on above: Performed By: #### C BC, CUBLD, CMP, LACTIC, ESR, CRP ####[place] [id number] [facility] Lymphocytes/100 leukocytes i n Blood by Automated countOrdered By: Philip Chatman on 06-21-2023 Lymphocytes/100 WBC (Bld) 7.5 % Normal . [facility] Comment on above: Performed By: #### C BC, CUBLD, CMP, LACTIC, ESR, CRP ####[address] MCH [Entitic mass] by Automa jennifer countOrdered By: Philip Chatman on 06-21-2023 MCH (RBC) [Entitic mass] 29.3 pg Normal 27.5-35.2 [facility] Comment on above: Performed By: #### C BC, CUBLD, CMP, LACTIC, ESR, CRP ####[address] MCHC Auto (RBC) [Mass/Vol]Or dered By: Philip Chatman on 06-21-2023 MCHC (RBC) [Mass/Vol] 33.5 g/dL 32.5-35.6 [facility] MCV [Entitic volume] by Auto mated countOrdered By: Philip Chatman on 06-21-2023 MCV (RBC) [Entitic vol] 87.4 fL Normal 83.5-101 [facility] Comment on above: Performed By: #### C BC, CUBLD, CMP, LACTIC, ESR, CRP ####[address] Monocyte distribution width [Entitic volume] in Blood by AutomatedOrdered By: Philip Chatman on 06-21-2023 Monocyte distribution width Auto (Bld) [Entitic vol] 24.17 % High 0.00-20.00 [facility] Comment on above: For adults in ED, MD W > 20.0 may be associated with a higher risk of sepsis during the first 12 hrs of hospital admission Neutrophils [#/volume] in Bl ood by Automated countOrdered By: Philip Chatman on 06-21-2023 Neutrophils (Bld) [#/Vol] 5.4 10*3/uL Normal 1.8-7.7 [facility] Comment on above: Performed By: #### C BC, CUBLD, CMP, LACTIC, ESR, CRP ####[address] No Panel InformationOrdered By: Philip Chatman on 06-21-2023 Bacterial ID (NA Multiplex Assay) Methicillin Resis Staph Aureus Abnormal [facility] Estimated GFR (CKD-EPI) 13.678 mL/Min [facility] Creatinine Clearance (Chem 18.34 [facility] Nucleated erythrocytes [Pres ence] in Blood by Automated countOrdered By: Philip Chatman on 06-21-2023 Nucleated RBC Auto Ql (Bld) 0.1 /100{WBC} 0-0.5 [facility] Platelet mean volume [Entiti c volume] in Blood by Automated countOrdered By: Philip Chatman on 06-21-2023 Platelet mean volume (Bld) [Entitic vol] 7.4 fL Normal 6.6-10.1 [facility] Comment on above: Performed By: #### C BC, CUBLD, CMP, LACTIC, ESR, CRP ####[place] [address] [place] [address] [place] Platelets [#/volume] in Bloo d by Automated countOrdered By: Philip Chatman on 06-21-2023 Platelets (Bld) [#/Vol] 311 10*3/uL Normal 150-450 [facility] Comment on above: Performed By: #### C BC, CUBLD, CMP, LACTIC, ESR, CRP ####[place] [address] [place] [address] [place] Potassium [Moles/volume] in Serum or PlasmaOrdered By: Philip Chatman on 06-21-2023 Potassium [Moles/Vol] 4.0 mmol/L Normal 3.5-5.1 [facility] Comment on above: Performed By: #### C BC, CUBLD, CMP, LACTIC, ESR, CRP ####[address] [address] [place] Protein [Mass/volume] in Ser um or PlasmaOrdered By: Philip Chatman on 06-21-2023 Protein [Mass/Vol] 8.3 g/dL Normal 6.4-8.9 [facility] Comment on above: Performed By: #### C BC, CUBLD, CMP, LACTIC, ESR, CRP ####[facility] [address] Serum globulin measurement b y calculation (mass/volume)Ordered By: Philip Chatman on 06-21-2023 Globulin (S) [Mass/Vol] 5.0 g/dL Normal [facility] Comment on above: Performed By: #### C BC, CUBLD, CMP, LACTIC, ESR, CRP ####[address] Serum or plasma albumin/glob ulin mass ratioOrdered By: Philip Chatman on 06-21-2023 Albumin/Globulin [Mass ratio] 0.7 {ratio} [facility] Comment on above: Performed By: #### C BC, CUBLD, CMP, LACTIC, ESR, CRP ####[address] Serum or plasma anion gap de terminationOrdered By: Philip Chatman on 06-21-2023 Anion gap [Moles/Vol] 13.4 mmol/L Normal 6.0-15.0 [facility] Comment on above: Performed By: #### C BC, CUBLD, CMP, LACTIC, ESR, CRP ####[address] Sodium [Moles/volume] in Ser um or PlasmaOrdered By: Philip Chatman on 06-21-2023 Sodium [Moles/Vol] 132 mmol/L Low 136-145 [facility] Comment on above: Performed By: #### C BC, CUBLD, CMP, LACTIC, ESR, CRP ####[address] US PVR Lower EXT Complete Bi laton [...] M.D. Transcribed by: JASPREET Technologist: TK Normal [facility] Urea nitrogen [Mass/volume] in Serum or PlasmaOrdered By: hPilip Chatman on 06-21-2023 Urea nitrogen [Mass/Vol] 13 mg/dL Normal 09-04 [facility] Comment on above: Performed By: #### C BC, CUBLD, CMP, LACTIC, ESR, CRP ####[facility] [id number] [place] [id number] [facility] XR foot LT min 3V*on 024 XR foot LT min 3V* Normal [facility] Consent for Treatmenton Consent for Treatment [id number]#1.00TIFF Normal [facility] Physician Orderon 05-29-2023 Physician Order [id number]#1.00TIFF Normal [facility] Consent for Treatmenton 05-12 Consent for Treatment [id number]#1.00TIFF Normal [facility] Heart and Vascular Office/Cl inic Noteon 05-27-2023 [...] nonhealing. He had a PVR done in [facility]. 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 Normal [facility] Comment on above: Result Comment: Elec tronically Signed By: Dorian FISH, Greg Lopez\.br\Date and Time Signed: 05/27/23 09:41 EDT Outside Radiologyon 05-27-19 24 Outside Radiology [id number]#1.00TIFF [facility] Outside Radiology [id number]#1.00TIFF [facility] Physician Orderon 05-27-2023 Physician Order [id number]#1.00TIFF [facility] No Panel Informationon 04-22 C-Reactive Protein, Quantitative 2.85 mg/dL [facility] Basic Metabolic Panelon Creatinine Clr Calc Pharmacy 13.63 Normal [facility] Comment on above: Result Comment: PERF ORMED BY:[facility] [place] [phone] MEDICAL DIRECTORDEAN MCWILLIAMS M.D. Performed By: #### B MP ####[facility] [id number] [place] [address] [facility] GFR/1.73 sq M.predicted MDRD (S/P/Bld) [Vol rate/Area] 8.416 mL/min/{1.73_m2} Normal [facility] Comment on above: Performed By: #### B MP ####[address] [address] [facility] Calcium [Mass/volume] in Ser um or PlasmaOrdered By: Alon Santiago on 04-16-2023 Calcium [Mass/Vol] 9.0 mg/dL Normal 8.6-10.3 [facility] Comment on above: Performed By: #### B MP ####[place] [address] [place] [address] [facility] Capillary blood glucose mike urement by glucometer (mass/volume)Ordered By: Alon Santiago on 04-16-2023 Glucose [Mass/Vol] 188 mg/dL Normal [facility] Comment on above: Random Glucose Refer ence Range is dependent on time and content of last meal. Glucose of more than 200 mg/dL in a nonstressed, ambulatory subject supports the diagnosis of Diabetes Mellitus. Result Comment: [place] Glucose Reference Range is dependent on time and content of last meal. Glucose of more than 200 mg/dL in a nonstressed, ambulatory subject supports the diagnosis of Diabetes Mellitus.PERFORMED BY:[place] [address] [place], [place] [phone] MEDICAL DIRECTORDEAN MCWILLIAMS M.D. Performed By: #### G DARLENE ####Point of Care testing, Carbon dioxide, total [Moles /volume] in Serum or PlasmaOrdered By: Alon Santiago on 04-16-2023 CO2 [Moles/Vol] 30.1 mmol/L Normal 21.0-31.0 [facility] Comment on above: Performed By: #### B MP ####[facility] [place] [address] [facility] Chloride [Moles/volume] in S bushra or PlasmaOrdered By: Alon Santiago on 04-16-2023 Chloride [Moles/Vol] 97 mmol/L Low 98-107 [facility] Comment on above: Performed By: #### B MP ####[facility] [place] [address] [facility] Creatinine [Mass/volume] in Serum or PlasmaOrdered By: Alon Santiago on 04-16-2023 Creatinine [Mass/Vol] 6.70 mg/dL Significan t change up 0.70-1.30 [facility] Comment on above: Delta: 10.23 on Performed By: #### B MP ####[facility] [place] [address] [facility] ECG 12 lead ECGon 04-16-2023 ECG 12 lead ECG Normal [facility] Glucose Poct Glucometerson 0 04-16-2023 Commemt1 Glu2: Cleaned Meter Normal [facility] Comment on above: Result Comment: PERF ORMED BY:[address] [place], [place] [phone] MEDICAL DIRECTORDEAN MCWILLIAMS M.D. Performed By: #### G DARLENE ####Point of Care testing, Glucose [Mass/Vol] 244 mg/dL Normal [facility] Comment on above: Result Comment: [facility] Glucose Reference Range is dependent on time and content of last meal. Glucose of more than 200 mg/dL in a nonstressed, ambulatory subject supports the diagnosis of Diabetes Mellitus. Performed By: #### G LULS ####Point of Care testing, Glucose [Mass/volume] in Ser um or PlasmaOrdered By: Alon Santiago on 04-16-2023 Glucose [Mass/Vol] 218 mg/dL Significant change up 70-100 [facility] Comment on above: Delta: 98 on ADA recommended reference rangeRandom Glucose Reference Range is dependent on time and content of last meal. Glucose of more than 200 mg/dL in a nonstressed, ambulatory subject supports the diagnosis of Diabetes Mellitus. Result Comment: [facility] Glucose Reference Range is dependent on time and content of last meal. Glucose of more than 200 mg/dL in a nonstressed, ambulatory subject supports the diagnosis of Diabetes Mellitus. ADA recommended reference range Performed By: #### B MP ####[place] [address] No Panel InformationOrdered By: Alon Santiago on 04-16-2023 Estimated GFR (CKD-EPI) 8.416 mL/Min [facility] Creatinine Clearance (Chem 13.63 [facility] Bedside Glucose Comment Glu2: cleaned meter [facility] Potassium [Moles/volume] in Serum or PlasmaOrdered By: Oblandy Fregosor on 04-16-2023 Potassium [Moles/Vol] 5.4 mmol/L High 3.5-5.1 [facility] Comment on above: Performed By: #### B MP ####[address] Serum or plasma anion gap de terminationOrdered By: Alon Fregosor on 04-16-2023 Anion gap [Moles/Vol] 12.3 mmol/L Normal 6.0-15.0 [facility] Comment on above: Performed By: #### B MP ####[address] Sodium [Moles/volume] in Ser um or PlasmaOrdered By: Alon Fregosor on 04-16-2023 Sodium [Moles/Vol] 134 mmol/L Low 136-145 [facility] Comment on above: Performed By: #### B MP ####[place] [id number] [facility] Urea nitrogen [Mass/volume] in Serum or PlasmaOrdered By: Alon Fregosor on 04-16-2023 Urea nitrogen [Mass/Vol] 22 mg/dL Normal 7-25 [facility] Comment on above: Performed By: #### B MP ####[address] Activated partial thrombopla stin time (aPTT) in platelet poor plasma by coagulation aOrdered By: Alon Santiago on 03-04-2024 aPTT Coag (PPP) [Time] 28.3 s 25.1-36.5 [facility] Comment on above: A hematocrit value g reater than 55% may lead to inaccurate results in coagulation testing. Patients having hematocrit values >55% require a special collection tube for coagulation studies. Please contact the laboratory at [phone] for redraw instructions. Basic Metabolic Panelon Anion gap [Moles/Vol] 15.8 mmol/L High 6.0-15.0 Th e [facility] Comment on above: Performed By: #### REBECCA Bae, BMP ####[address] [place] [address] [facility] Calcium [Mass/Vol] 9.3 mg/dL Normal 8.6-10.3 The [facility] Comment on above: Performed By: #### REBECCA Bae, BMP ####[address] [address] [facility] Chloride [Moles/Vol] 98 mmol/L Normal 98-107 The [facility] Comment on above: Performed By: #### REBECCA Bae, BMP ####[address] [address] [facility] CO2 [Moles/Vol] 25.5 mmol/L Normal 21.0-31.0 The [facility] Comment on above: Performed By: #### RAVEN BaeNO, BMP ####[address] [address] [facility] Creatinine [Mass/Vol] 10.23 mg/dL High 0.70-1.30 e [facility] Comment on above: Performed By: #### RAVEN BaeNO, BMP ####[address] [address] [facility] Creatinine Clr Calc Pharmacy 8.89 Normal The [facility] Comment on above: Performed By: #### Debbie CBCNO, BMP ####[address] [address] [place] GFR/1.73 sq M.predicted MDRD (S/P/Bld) [Vol rate/Area] 5.065 mL/min/{1.73_m2} Normal The [facility] Comment on above: Performed By: #### REBECCA Bae, BMP ####[facility] [place] [address] [facility] Glucose [Mass/Vol] 98 mg/dL Normal 70-100 The [facility] Comment on above: Result Comment: [place] Glucose Reference Range is dependent on time and content of last meal. Glucose of more than 200 mg/dL in a nonstressed, ambulatory subject supports the diagnosis of Diabetes Mellitus. ADA recommended reference range Performed By: #### REBECCA Bae, BMP ####[facility] [place] [address] [facility] Potassium [Moles/Vol] 5.3 mmol/L High 3.5-5.1 The [facility] Comment on above: Performed By: #### REBECCA Bae, BMP ####[address] [place] [address] [facility] Sodium [Moles/Vol] 134 mmol/L Low 136-145 The [facility] Comment on above: Performed By: #### REBECCA Bae, BMP ####[address] [place] [address] [facility] Urea nitrogen [Mass/Vol] 37 mg/dL High 7-25 The [facility] Comment on above: Performed By: #### REBECCA Bae, BMP ####[address] [place] [address] [place] C reactive protein [Mass/vol ume] in Serum or PlasmaOrdered By: Alfredo Acosta on 04-15-2023 CRP [Mass/Vol] 4.2 mg/dL 0.0-0.5 [facility] C-Reactive Proteinon 024 C-Reactive Protein 4.2 mg/dL High 0.0-0.5 The [facility] Comment on above: Result Comment: PERF ORMED BY:[address] [place], [place] [phone] MEDICAL DIRECTORDEAN MCWILLIAMS M.D. Performed By: #### C RP ####[address] [address] [facility] Coagulation Profileon 2023 aPTT Coag (Bld) [Time] 28.3 s Normal 25.1-36.5 Th e [facility] Comment on above: Result Comment: A he matocrit value greater than 55% may lead to inaccurate results in coagulation testing. Patients having hematocrit values >55% require a special collection tube for coagulation studies. Please contact the laboratory at [phone] for redraw instructions.PERFORMED BY:[address] [place], [place] [phone] MEDICAL DIRECTORDEAN MCWILLIAMS M.D. Performed By: #### P P ####[id number] [facility] Erythrocyte distribution wid th [Ratio] by Automated countOrdered By: Gabriel Gould on 04-15-2023 Erythrocyte distribution width (RBC) [Ratio] 15.4 % High 12.0-14.8 [facility] Comment on above: Performed By: #### M Debbie CBCNO, BMP ####[id number] [facility] Erythrocytes [#/volume] in B lood by Automated countOrdered By: Gabriel Gould on 04-15-2023 RBC (Bld) [#/Vol] 3.20 10*6/uL Low 3.90-5.60 [facility] Comment on above: Performed By: #### M Debbie CBCNO, BMP ####[address] [facility] Glucose Poct Glucometerson 0 04-15-2023 Commemt1 Glu2: Cleaned Meter Normal The [facility] Comment on above: Result Comment: PERF ORMED BY:[address] [place], [place] [phone] MEDICAL DIRECTORDEAN MCWILLIAMS M.D. Performed By: #### G LULS ####Point of Care testing, Glucose [Mass/Vol] 224 mg/dL Normal The [facility] Comment on above: Result Comment: [place] om Glucose Reference Range is dependent on time and content of last meal. Glucose of more than 200 mg/dL in a nonstressed, ambulatory subject supports the diagnosis of Diabetes Mellitus. Performed By: #### G LULS ####Point of Care testing, Commemt1 Glu2: Cleaned Meter Normal The [facility] Comment on above: Result Comment: PERF ORMED BY:[address] [place]odia[place], [place] [phone] MEDICAL DIRECTORDEAN MCWILLIAMS M.D. Performed By: #### G LULS ####Point of Care testing, Glucose [Mass/Vol] 197 mg/dL Normal The [facility] Comment on above: Result Comment: [place] om Glucose Reference Range is dependent on time and content of last meal. Glucose of more than 200 mg/dL in a nonstressed, ambulatory subject supports the diagnosis of Diabetes Mellitus. Performed By: #### G LULS ####Point of Care testing, Glucose [Mass/Vol] 101 mg/dL Normal The [facility] Comment on above: Result Comment: [place] om Glucose Reference Range is dependent on time and content of last meal. Glucose of more than 200 mg/dL in a nonstressed, ambulatory subject supports the diagnosis of Diabetes Mellitus.PERFORMED BY:[address] [place]ER[place]enson[place]odia[place], [place] [phone] MEDICAL DIRECTORDEAN MCWILLIAMS M.D. Performed By: #### G LULS ####Point of Care testing, Hematocrit [Volume Fraction] of Blood by Automated countOrdered By: Gabriel Gould on 04-15-2023 Hematocrit (Bld) [Volume fraction] 29.4 % Low 38.8-50.0 [facility] Comment on above: Performed By: #### REBECCA Bae, [facility] ####[address] [address] [facility] Hemoglobin [Mass/volume] in BloodOrdered By: Gabriel Gould on 04-15-2023 Hemoglobin (Bld) [Mass/Vol] 9.9 g/dL Low 13.0-17.0 [facility] Comment on above: Performed By: #### M REBECCA Lewis, BMP ####[facility] Hemogram CBC Without Diffon 04-15-2023 Mean Corpuscular HGB Conc 33.8 g/dL Normal 32.5-35.6 The [facility] Comment on above: Performed By: #### M G, CBCNO, BMP ####[address] WBC (Bld) [#/Vol] 6.7 10*3/uL Normal 4.1-10.5 The [facility] Comment on above: Performed By: #### M Debbie, CBCNO, BMP ####[address] INR in Platelet poor plasma by Coagulation assayOrdered By: Alon Santiago on 04-15-2023 INR Coag (PPP) [Relative time] 0.9 {INR} Normal [facility] Comment on above: INR Therapeutic Rang [...] - 4.5 Performed By: #### P P ####[address] Leukocytes [#/volume] correc jennifer for nucleated erythrocytes in Blood by Automated counOrdered By: Gabriel Gould on 04-15-2023 WBC corrected for nucl RBC Auto (Bld) [#/Vol] 6.7 10*3/uL 4.1-10.5 [facility] MCH [Entitic mass] by Automa jennifer countOrdered By: Gabriel Gould on 04-15-2023 MCH (RBC) [Entitic mass] 31.0 pg Normal 27.5-35.2 [facility] Comment on above: Performed By: #### M REBECCA Lewis, BMP ####[address] [address] [facility] MCHC Auto (RBC) [Mass/Vol]Or dered By: Gabriel Gould on 04-15-2023 MCHC (RBC) [Mass/Vol] 33.8 g/dL 32.5-35.6 [facility] MCV [Entitic volume] by Auto mated countOrdered By: Gabriel Gould on 04-15-2023 MCV (RBC) [Entitic vol] 91.8 fL Normal 83.5-101 [facility] Comment on above: Performed By: #### REBECCA Bae, BMP ####[id number] [facility] Magnesium [Mass/volume] in S bushra or PlasmaOrdered By: Gabriel Gould on 04-15-2023 Magnesium [Mass/Vol] 2.2 mg/dL Normal 1.9-2.7 [facility] Comment on above: Result Comment: PERF ORMED BY:[address] [place], [place] [phone] MEDICAL DIRECTORDEAN MCWILLIAMS M.D. Performed By: #### REBECCA Bae, BMP ####[address] [address] [facility] Platelet mean volume [Entiti c volume] in Blood by Automated countOrdered By: Gabriel Gould on 04-15-2023 Platelet mean volume (Bld) [Entitic vol] 7.6 fL Normal 6.6-10.1 [facility] Comment on above: Result Comment: PERF ORMED BY:[address] [place] [place], [place] [phone] MEDICAL DIRECTORDEAN MCWILLIAMS M.D. Performed By: #### M G, CBCNO, BMP ####[facility] [place] [address] [facility] Platelets [#/volume] in Bloo d by Automated countOrdered By: Gabriel Gould on 04-15-2023 Platelets (Bld) [#/Vol] 246 10*3/uL Normal 150-450 [facility] Comment on above: Performed By: #### M G, CBCNO, BMP ####[address] [place] [id number] [facility] Prothrombin time (PT)Ordered By: Alon Santiago on 04-15-2023 PT Coag (PPP) [Time] 11.0 s Normal 9.0-12.9 [facility] Comment on above: A hematocrit value g reater than 55% may lead to inaccurate results in coagulation testing. Patients having hematocrit values >55% require a special collection tube for coagulation studies. Please contact the laboratory at [phone] for redraw instructions. Result Comment: A he matocrit value greater than 55% may lead to inaccurate results in coagulation testing. Patients having hematocrit values >55% require a special collection tube for coagulation studies. Please contact the laboratory at [phone] for redraw instructions. Performed By: #### P P ####[address] [facility] Glucose Poct Glucometerson 0 04-14-2023 Glucose [Mass/Vol] 201 mg/dL Normal [facility] Comment on above: Result Comment: [facility] Glucose Reference Range is dependent on time and content of last meal. Glucose of more than 200 mg/dL in a nonstressed, ambulatory subject supports the diagnosis of Diabetes Mellitus.PERFORMED BY:[address] [place], [place] [phone] MEDICAL DIRECTORDEAN MCWILLIAMS M.D. Performed By: #### G LULS ####Point of Care testing, Glucose [Mass/Vol] 182 mg/dL Normal [facility] Comment on above: Result Comment: [facility] Glucose Reference Range is dependent on time and content of last meal. Glucose of more than 200 mg/dL in a nonstressed, ambulatory subject supports the diagnosis of Diabetes Mellitus.PERFORMED BY:[address] [place], [place] [phone] MEDICAL DIRECTORDEAN MCWILLIAMS M.D. Performed By: #### G LULS ####Point of Care testing, Glucose [Mass/Vol] 267 mg/dL Normal [facility] Comment on above: Result Comment: [facility] Glucose Reference Range is dependent on time and content of last meal. Glucose of more than 200 mg/dL in a nonstressed, ambulatory subject supports the diagnosis of Diabetes Mellitus.PERFORMED BY:[address] [place] [place], [place] [phone] MEDICAL DIRECTORDEAN MCWILLIAMS M.D. Performed By: #### G LULS ####Point of Care testing, Glucose [Mass/Vol] 109 mg/dL Normal [facility] Comment on above: Result Comment: [facility] Glucose Reference Range is dependent on time and content of last meal. Glucose of more than 200 mg/dL in a nonstressed, ambulatory subject supports the diagnosis of Diabetes Mellitus.PERFORMED BY:[address] [place], [place] [phone] MEDICAL DIRECTORDEAN MCWILLIAMS M.D. Performed By: #### G LULS ####Point of Care testing, Basic Metabolic Panelon 03-0 Anion gap [Moles/Vol] 16.3 mmol/L High 6.0-15.[address] [facility] Comment on above: Performed By: #### B MP, MG ####[address] [address] [facility] Calcium [Mass/Vol] 9.2 mg/dL Normal 8.6-10.3 [facility] Comment on above: Performed By: #### B MP, MG ####[address] [address] [facility] Chloride [Moles/Vol] 96 mmol/L Low 98-107 [facility] Comment on above: Performed By: #### B MP, MG ####[address] [place] [address] [place] CO2 [Moles/Vol] 27.5 mmol/L Normal 21.0-31.0 [facility] Comment on above: Performed By: #### B MP, MG ####[address] Creatinine [Mass/Vol] 6.49 mg/dL Significan t change up 0.70-1.30 [facility] Comment on above: Performed By: #### B MP, MG ####[address] Creatinine Clr Calc Pharmacy 13.69 Normal [facility] Comment on above: Performed By: #### B MP, MG ####[address] GFR/1.73 sq M.predicted MDRD (S/P/Bld) [Vol rate/Area] 8.744 mL/min/{1.73_m2} Normal [facility] Comment on above: Performed By: #### B MP, MG ####[address] Glucose [Mass/Vol] 120 mg/dL High 70-100 [facility] Comment on above: Result Comment: [place] Glucose Reference Range is dependent on time and content of last meal. Glucose of more than 200 mg/dL in a nonstressed, ambulatory subject supports the diagnosis of Diabetes Mellitus. ADA recommended reference range Performed By: #### B MP, MG ####[address] Potassium [Moles/Vol] 4.8 mmol/L Normal 3.5-5.1 [facility] Comment on above: Performed By: #### B MP, MG ####[address] Sodium [Moles/Vol] 135 mmol/L Low 136-145 [facility] Comment on above: Performed By: #### B MP, MG ####[address] Urea nitrogen [Mass/Vol] 22 mg/dL Normal 7-25 [facility] Comment on above: Performed By: #### B MP, MG ####[address] [address] [facility] ECG 12 lead ECGon 04-13-2023 ECG 12 lead ECG Normal [facility] Glucose Poct Glucometerson 0 04-13-2023 Glucose [Mass/Vol] 164 mg/dL Normal [facility] Comment on above: Result Comment: [place] Glucose Reference Range is dependent on time and content of last meal. Glucose of more than 200 mg/dL in a nonstressed, ambulatory subject supports the diagnosis of Diabetes Mellitus.PERFORMED BY:[address] [place], [place] [phone] MEDICAL DIRECTORDEAN MCWILLIAMS M.D. Performed By: #### G LULS ####Point of Care testing, Glucose [Mass/Vol] 254 mg/dL Normal [facility] Comment on above: Result Comment: [facility] Glucose Reference Range is dependent on time and content of last meal. Glucose of more than 200 mg/dL in a nonstressed, ambulatory subject supports the diagnosis of Diabetes Mellitus.PERFORMED BY:[address] [place], [place] [phone] MEDICAL DIRECTORDEAN MCWILLIAMS M.D. Performed By: #### G LULS ####Point of Care testing, Commemt1 Glu2: Cleaned Meter Normal [facility] Comment on above: Result Comment: PERF ORMED BY:[address] [place], [place] [phone] MEDICAL DIRECTORDEAN MCWILLIAMS M.D. Performed By: #### G LULS ####Point of Care testing, Glucose [Mass/Vol] 286 mg/dL Normal [facility] Comment on above: Result Comment: [place] Glucose Reference Range is dependent on time and content of last meal. Glucose of more than 200 mg/dL in a nonstressed, ambulatory subject supports the diagnosis of Diabetes Mellitus. Performed By: #### G LULS ####Point of Care testing, Glucose [Mass/Vol] 126 mg/dL Normal [facility] Comment on above: Result Comment: [facility] Glucose Reference Range is dependent on time and content of last meal. Glucose of more than 200 mg/dL in a nonstressed, ambulatory subject supports the diagnosis of Diabetes Mellitus.PERFORMED BY:[address] [place], [place] [phone] MEDICAL DIRECTORDEAN MCWILLIAMS M.D. Performed By: #### G DARLENE ####Point of Care testing, Hemogram CBC Without Diffon 04-13-2023 Erythrocyte distribution width (RBC) [Ratio] 15.2 % High 12.0-14.8 [facility] Comment on above: Performed By: #### C BCNO ####[address] Hematocrit (Bld) [Volume fraction] 29.7 % Low 38.8-50.0 [facility] Comment on above: Performed By: #### C BCNO ####[address] Hemoglobin (Bld) [Mass/Vol] 10.1 g/dL Low 13.0-17.0 [facility] Comment on above: Performed By: #### C BCNO ####[address] MCH (RBC) [Entitic mass] 31.0 pg Normal 27.5-35.2 [facility] Comment on above: Performed By: #### C BCNO ####[address] MCV (RBC) [Entitic vol] 91.4 fL Normal 83.5-101 [facility] Comment on above: Performed By: #### C BCNO ####[id number] [facility] Mean Corpuscular HGB Conc 33.9 g/dL Normal 32.5-35.6 [facility] Comment on above: Performed By: #### C BCNO ####[id number] [facility] Platelet mean volume (Bld) [Entitic vol] 7.9 fL Normal 6.6-10.1 [facility] Comment on above: Result Comment: PERF ORMED BY:[address] [place], [place] [phone] MEDICAL DIRECTORDEAN MCWILLIAMS M.D. Performed By: #### C BCNO ####[id number] [facility] Platelets (Bld) [#/Vol] 249 10*3/uL Normal 150-450 [facility] Comment on above: Performed By: #### C BCNO ####[address] RBC (Bld) [#/Vol] 3.25 10*6/uL Low 3.90-5.60 [facility] Comment on above: Performed By: #### C BCNO ####[address] WBC (Bld) [#/Vol] 5.9 10*3/uL Normal 4.1-10.5 [facility] Comment on above: Performed By: #### C BCNO ####[address] Magnesiumon 04-13-2023 Magnesium [Mass/Vol] 1.8 mg/dL Low 1.9-2.7 [facility] Comment on above: Result Comment: PERF ORMED BY:[address] [place], [place] [phone] MEDICAL DIRECTORDEAN MCWILLIAMS M.D. Performed By: #### B MP, MG ####[address] Basic Metabolic Panelon 03-0 Anion gap [Moles/Vol] 17.0 mmol/L High 6.0-15.0 Th e [facility] Comment on above: Performed By: #### M G, BMP ####[address] Calcium [Mass/Vol] 8.9 mg/dL Normal 8.6-10.3 [facility] Comment on above: Performed By: #### Ezekiel Lewis, BMP ####[address] Chloride [Moles/Vol] 95 mmol/L Low 98-107 [facility] Comment on above: Performed By: #### M Debbie, BMP ####[address] CO2 [Moles/Vol] 27.2 mmol/L Normal 21.0-31.0 [facility] Comment on above: Performed By: #### Ezekiel Lewis, BMP ####[address] Creatinine [Mass/Vol] 9.40 mg/dL Significan t change up 0.70-1.30 [facility] Comment on above: Performed By: #### Ezekiel Lewis, BMP ####[address] Creatinine Clr Calc Pharmacy 9.45 Normal [facility] Comment on above: Performed By: #### Ezekiel Lewis, BMP ####[address] GFR/1.73 sq M.predicted MDRD (S/P/Bld) [Vol rate/Area] 5.606 mL/min/{1.73_m2} Normal [facility] Comment on above: Performed By: #### Ezekiel Lewis, BMP ####[address] Glucose [Mass/Vol] 204 mg/dL Significant change up 70-100 [facility] Comment on above: Result Comment: [place] Glucose Reference Range is dependent on time and content of last meal. Glucose of more than 200 mg/dL in a nonstressed, ambulatory subject supports the diagnosis of Diabetes Mellitus. ADA recommended reference range Performed By: #### M G, BMP ####[address] Potassium [Moles/Vol] 5.2 mmol/L High 3.5-5.1 [facility] Comment on above: Performed By: #### M G, BMP ####[place] [id number] [facility] Sodium [Moles/Vol] 134 mmol/L Low 136-145 [facility] Comment on above: Performed By: #### M G, BMP ####[address] [place] [id number] [facility] Urea nitrogen [Mass/Vol] 42 mg/dL High 7-25 [facility] Comment on above: Performed By: #### M Debbie, BMP ####[address] [place] [id number] [facility] Clostridioides difficile tox in B tcdB gene [Presence] in Stool by IRENE with probe deteOrdered By: Gabriel Gould on 04-12-2023 C. difficile toxin B tcdB gene IRENE+probe Ql (Stl) Negative Negative [facility] Comment on above: Testing performed by RT-PCR Clostridium Difficileon 03-0 Clostridium Difficile Negative Normal Negative [facility] Comment on above: Order Comment: > or = to 3 loose/watery stools in the last 24 HRS? Y Is patient on promotility agents or tube feeding? N Result Comment: Test ing performed by RT-PCRPERFORMED BY:[address] [place], [place] [phone] MEDICAL DIRECTORDEAN MCWILLIAMS M.D. Performed By: #### C DT ####[place] [id number] [facility] Glucose Poct Glucometerson 0 04-12-2023 Glucose [Mass/Vol] 265 mg/dL Normal [facility] Comment on above: Result Comment: [place] Glucose Reference Range is dependent on time and content of last meal. Glucose of more than 200 mg/dL in a nonstressed, ambulatory subject supports the diagnosis of Diabetes Mellitus.PERFORMED BY:[address] [address] [place], [place] [phone] MEDICAL DIRECTORDEAN MCWILLIAMS M.D. Performed By: #### G LULS ####Point of Care testing, Glucose [Mass/Vol] 207 mg/dL Normal [facility] Comment on above: Result Comment: [place] om Glucose Reference Range is dependent on time and content of last meal. Glucose of more than 200 mg/dL in a nonstressed, ambulatory subject supports the diagnosis of Diabetes Mellitus.PERFORMED BY:[place] [address] [place], [place] [phone] MEDICAL DIRECTORDEAN MCWILLIAMS M.D. Performed By: #### G LULS ####Point of Care testing, Commemt1 Glu2: Cleaned Meter Normal [facility] Comment on above: Result Comment: PERF ORMED BY:[place] [address] [place], [place] [phone] MEDICAL JAKE MCWILLIAMS M.D. Performed By: #### G LULS ####Point of Care testing, Glucose [Mass/Vol] 130 mg/dL Normal [facility] Comment on above: Result Comment: [place] om Glucose Reference Range is dependent on time and content of last meal. Glucose of more than 200 mg/dL in a nonstressed, ambulatory subject supports the diagnosis of Diabetes Mellitus. Performed By: #### G LULS ####Point of Care testing, Glucose [Mass/Vol] 129 mg/dL Normal [facility] Comment on above: Result Comment: [place] om Glucose Reference Range is dependent on time and content of last meal. Glucose of more than 200 mg/dL in a nonstressed, ambulatory subject supports the diagnosis of Diabetes Mellitus.PERFORMED BY:[address] [place] [place] [place], [place] [phone] MEDICAL JAKE MCWILLIAMS M.D. Performed By: #### G LULS ####Point of Care testing, Glucose [Mass/Vol] 224 mg/dL Normal [facility] Comment on above: Result Comment: [place] om Glucose Reference Range is dependent on time and content of last meal. Glucose of more than 200 mg/dL in a nonstressed, ambulatory subject supports the diagnosis of Diabetes Mellitus.PERFORMED BY:[place] [address] [place], [place] [phone] MEDICAL JAKE MCWILLIAMS M.D. Performed By: #### G DARLENE ####Point of Care testing, Hemogram CBC Without Diffon 04-12-2023 Erythrocyte distribution width (RBC) [Ratio] 14.8 % Normal 12.0-14.8 [facility] Comment on above: Performed By: #### C BCNO ####[address] Hematocrit (Bld) [Volume fraction] 29.9 % Low 38.8-50.0 [facility] Comment on above: Performed By: #### C BCNO ####[address] Hemoglobin (Bld) [Mass/Vol] 10.1 g/dL Low 13.0-17.0 [facility] Comment on above: Performed By: #### C BCNO ####[address] MCH (RBC) [Entitic mass] 30.8 pg Normal 27.5-35.2 [facility] Comment on above: Performed By: #### C BCNO ####[address] MCV (RBC) [Entitic vol] 91.4 fL Normal 83.5-101 [facility] Comment on above: Performed By: #### C BCNO ####[place] [id number] [facility] Mean Corpuscular HGB Conc 33.7 g/dL Normal 32.5-35.6 [facility] Comment on above: Performed By: #### C BCNO ####[place] [id number] [facility] Platelet mean volume (Bld) [Entitic vol] 8.0 fL Normal 6.6-10.1 [facility] Comment on above: Result Comment: PERF ORMED BY:[place] [address] [place], [place] [phone] MEDICAL DIRECTORDEAN MCWILLIAMS M.D. Performed By: #### C BCNO ####[place] [id number] [facility] Platelets (Bld) [#/Vol] 230 10*3/uL Normal 150-450 [facility] Comment on above: Performed By: #### C BCNO ####[address] RBC (Bld) [#/Vol] 3.27 10*6/uL Low 3.90-5.60 [facility] Comment on above: Performed By: #### C BCNO ####[place] [id number] [facility] WBC (Bld) [#/Vol] 6.6 10*3/uL Normal 4.1-10.5 [facility] Comment on above: Performed By: #### C BCNO ####[place] [id number] [facility] Magnesiumon 04-12-2023 Magnesium [Mass/Vol] 2.0 mg/dL Normal 1.9-2.7 [facility] Comment on above: Result Comment: PERF ORMED BY:[address] [place], [place] [phone] MEDICAL DIRECTORDEAN MCWILLIAMS M.D. Performed By: #### M G, BMP ####[place] [id number] [facility] Basic Metabolic Panelon 03-15 Anion gap [Moles/Vol] 16.4 mmol/L High 6.0-15.0 Th e [facility] Comment on above: Performed By: #### B MP, MG ####[address] Calcium [Mass/Vol] 9.3 mg/dL Normal 8.6-10.3 [facility] Comment on above: Performed By: #### B MP, MG ####[address] Chloride [Moles/Vol] 96 mmol/L Low 98-107 [facility] Comment on above: Performed By: #### B MP, MG ####[address] CO2 [Moles/Vol] 29.6 mmol/L Normal 21.0-31.0 [facility] Comment on above: Performed By: #### B MP, MG ####[address] Creatinine [Mass/Vol] 7.14 mg/dL Significan t change up 0.70-1.30 [facility] Comment on above: Performed By: #### B MP, MG ####[address] Creatinine Clr Calc Pharmacy 12.48 Normal [facility] Comment on above: Performed By: #### B MP, MG ####[address] GFR/1.73 sq M.predicted MDRD (S/P/Bld) [Vol rate/Area] 7.798 mL/min/{1.73_m2} Normal [facility] Comment on above: Performed By: #### B MP, MG ####[address] Glucose [Mass/Vol] 64 mg/dL Low 70-100 [facility] Comment on above: Result Comment: [place] Glucose Reference Range is dependent on time and content of last meal. Glucose of more than 200 mg/dL in a nonstressed, ambulatory subject supports the diagnosis of Diabetes Mellitus. ADA recommended reference range Performed By: #### B MP, MG ####[address] Potassium [Moles/Vol] 5.0 mmol/L Normal 3.5-5.1 [facility] Comment on above: Performed By: #### B MP, MG ####[address] Sodium [Moles/Vol] 137 mmol/L Normal 136-145 [facility] Comment on above: Performed By: #### B MP, MG ####[address] [address] [facility] Urea nitrogen [Mass/Vol] 34 mg/dL High 7-25 [facility] Comment on above: Performed By: #### B MP, MG ####[facility] [place] [address] [facility] Glucose Poct Glucometerson 0 04-11-2023 Glucose [Mass/Vol] 389 mg/dL Normal [facility] Comment on above: Result Comment: [place] om Glucose Reference Range is dependent on time and content of last meal. Glucose of more than 200 mg/dL in a nonstressed, ambulatory subject supports the diagnosis of Diabetes Mellitus.PERFORMED BY:[address] [place], [place] [phone] MEDICAL DIRECTORDEAN MCWILLIAMS M.D. Performed By: #### G LULS ####Point of Care testing, Commemt1 Normal [facility] Comment on above: Result Comment: Glu2 : WILL NOTIFY DR/RN Performed By: #### G LULS ####Point of Care testing, Commemt2 Cleaned Meter Normal [facility] Comment on above: Result Comment: PERF ORMED BY:[address] [place], [place] [phone] MEDICAL DIRECTORDEAN MCWILLIAMS M.D. Performed By: #### G LULS ####Point of Care testing, Glucose [Mass/Vol] 457 mg/dL Off scale high Th e [facility] Comment on above: Result Comment: [place] om Glucose Reference Range is dependent on time and content of last meal. Glucose of more than 200 mg/dL in a nonstressed, ambulatory subject supports the diagnosis of Diabetes Mellitus. Performed By: #### G LULS ####Point of Care testing, Glucose [Mass/Vol] 78 mg/dL Normal [facility] Comment on above: Result Comment: [place] om Glucose Reference Range is dependent on time and content of last meal. Glucose of more than 200 mg/dL in a nonstressed, ambulatory subject supports the diagnosis of Diabetes Mellitus.PERFORMED BY:[address] [place], [place] [phone] MEDICAL DIRECTORDEAN MCWILLIAMS M.D. Performed By: #### G DARLENE ####Point of Care testing, Hemogram CBC Without Diffon 04-11-2023 Erythrocyte distribution width (RBC) [Ratio] 15.2 % High 12.0-14.8 [facility] Comment on above: Performed By: #### C BCNO ####[place] [id number] [facility] Hematocrit (Bld) [Volume fraction] 32.3 % Low 38.8-50.0 [facility] Comment on above: Performed By: #### C BCNO ####[address] Hemoglobin (Bld) [Mass/Vol] 10.8 g/dL Low 13.0-17.0 [facility] Comment on above: Performed By: #### C BCNO ####[address] MCH (RBC) [Entitic mass] 30.6 pg Normal 27.5-35.2 [facility] Comment on above: Performed By: #### C BCNO ####[address] MCV (RBC) [Entitic vol] 91.5 fL Normal 83.5-101 [facility] Comment on above: Performed By: #### C BCNO ####[place] [id number] [facility] Mean Corpuscular HGB Conc 33.4 g/dL Normal 32.5-35.6 [facility] Comment on above: Performed By: #### C BCNO ####[place] [id number] [facility] Platelet mean volume (Bld) [Entitic vol] 8.3 fL Normal 6.6-10.1 [facility] Comment on above: Result Comment: PERF ORMED BY:[address]SON[address] [phone] MEDICAL DIRECTORDEAN MCWILLIAMS M.D. Performed By: #### C BCNO ####[place] [address] [place] [address] [facility] Platelets (Bld) [#/Vol] 228 10*3/uL Normal 150-450 [facility] Comment on above: Performed By: #### C BCNO ####[place] [id number] [facility] RBC (Bld) [#/Vol] 3.53 10*6/uL Low 3.90-5.60 [facility] Comment on above: Performed By: #### C BCNO ####[place] [id number] [facility] WBC (Bld) [#/Vol] 7.0 10*3/uL Normal 4.1-10.5 [facility] Comment on above: Performed By: #### C BCNO ####[place] [id number] [facility] Magnesiumon 04-11-2023 Magnesium [Mass/Vol] 2.1 mg/dL Normal 1.9-2.7 [facility] Comment on above: Result Comment: PERF ORMED BY:[place] [address] [place], [place] [phone] MEDICAL DIRECTORDEAN MCWILLIAMS M.D. Performed By: #### B MP, MG ####[place] [id number] [facility] No Panel InformationOrdered By: Gabriel Gould on 04-11-2023 Bedside Glucose #2 Comment Cleaned meter [facility] A1C with Estimated Average G luon 04-10-2023 Glucose [Mass/Vol] 235 mg/dL Normal [facility] Comment on above: Result Comment: PERF ORMED BY:[place] [address] [place] [place], [place] [phone] MEDICAL DIRECTORDEAN MCWILLIAMS M.D. Performed By: #### C BC, CRP, BMP, LIPID, A1C WTH eA, MG ####[place] [address] Automated basophil %Ordered By: Gabriel Gould on 04-10-2023 Basophils/100 WBC (Bld) 0.4 % Normal . [facility] Comment on above: Performed By: #### C BC, CRP, BMP, LIPID, A1C WTH eA, MG ####[address] Automated basophil countOrde red By: Gabriel Gould on 04-10-2023 Basophils (Bld) [#/Vol] 0.0 10*3/uL Normal 0.0-0.2 [facility] Comment on above: Result Comment: PERF ORMED BY:[address] [place], [place] [phone] MEDICAL DIRECTORDEAN MCWILLIAMS M.D. Performed By: #### C BC, CRP, BMP, LIPID, A1C WT eA, MG ####[address] Automated blood monocyte cou ntOrdered By: Gabriel Gould on 04-10-2023 Monocytes (Bld) [#/Vol] 0.8 10*3/uL Normal 0.0-0.8 [facility] Comment on above: Performed By: #### C BC, CRP, BMP, LIPID, A1C WTH eA, MG ####[address] Automated eosinophil %Ordere d By: Gabriel Gould on 04-10-2023 Eosinophils/100 WBC (Bld) 0.5 % Normal . [facility] Comment on above: Performed By: #### C BC, CRP, BMP, LIPID, A1C WTH eA, MG ####[address] Automated eosinophil countOr dered By: Gabriel Gould on 04-10-2023 Eosinophils (Bld) [#/Vol] 0.0 10*3/uL Normal 0.0-0.45 [facility] Comment on above: Performed By: #### C BC, CRP, BMP, LIPID, A1C WTH eA, MG ####[address] Automated monocyte %Ordered By: Gabriel Gould on 04-10-2023 Monocytes/100 WBC (Bld) 10.6 % Normal . [facility] Comment on above: Performed By: #### C BC, CRP, BMP, LIPID, A1C WTH eA, MG ####[place] [id number] [facility] Automated neutrophil %Ordere d By: Gabriel Gould on 04-10-2023 Neutrophils/100 WBC (Bld) 84.9 % Normal . [facility] Comment on above: Performed By: #### C BC, CRP, BMP, LIPID, A1C WTH eA, MG ####[address] Basic Metabolic Panelon 03-15 Anion gap [Moles/Vol] 16.8 mmol/L High 6.0-15.[address] [facility] Comment on above: Order Comment: FASTI NG Y Performed By: #### C BC, CRP, BMP, LIPID, A1C WTH eA, MG ####[address] Calcium [Mass/Vol] 9.2 mg/dL Normal 8.6-10.3 [facility] Comment on above: Order Comment: FASTI NG Y Performed By: #### C BC, CRP, BMP, LIPID, A1C WTH eA, MG ####[place] [id number] [facility] Chloride [Moles/Vol] 95 mmol/L Low 98-107 [facility] Comment on above: Order Comment: FASTI NG Y Performed By: #### C BC, CRP, BMP, LIPID, A1C WTH eA, MG ####[place] [id number] [facility] CO2 [Moles/Vol] 25.2 mmol/L Normal 21.0-31.0 [facility] Comment on above: Order Comment: FASTI NG Y Performed By: #### C BC, CRP, BMP, LIPID, A1C WTH eA, MG ####[place] [address] Creatinine [Mass/Vol] 9.83 mg/dL Significan t change up 0.70-1.30 [facility] Comment on above: Order Comment: FASTI NG Y Performed By: #### C BC, CRP, BMP, LIPID, A1C WTH eA, MG ####[place] [address] Creatinine Clr Calc Pharmacy 8.58 Normal [facility] Comment on above: Order Comment: FASTI NG Y Performed By: #### C BC, CRP, BMP, LIPID, A1C WTH eA, MG ####[place] [address] GFR/1.73 sq M.predicted MDRD (S/P/Bld) [Vol rate/Area] 5.313 mL/min/{1.73_m2} Normal [facility] Comment on above: Order Comment: FASTI NG Y Performed By: #### C BC, CRP, BMP, LIPID, A1C WTH eA, MG ####[address] Glucose [Mass/Vol] 115 mg/dL High 70-100 [facility] Comment on above: Order Comment: FASTI NG Y Result Comment: [place] Glucose Reference Range is dependent on time and content of last meal. Glucose of more than 200 mg/dL in a nonstressed, ambulatory subject supports the diagnosis of Diabetes Mellitus. ADA recommended reference range Performed By: #### C BC, CRP, BMP, LIPID, A1C WTH eA, MG ####[place] [address] Potassium [Moles/Vol] 5.0 mmol/L Normal 3.5-5.1 [facility] Comment on above: Order Comment: FASTI NG Y Performed By: #### C BC, CRP, BMP, LIPID, A1C WTH eA, MG ####[address] Sodium [Moles/Vol] 132 mmol/L Low 136-145 [facility] Comment on above: Order Comment: FASTI NG Y Performed By: #### C BC, CRP, BMP, LIPID, A1C WTH eA, MG ####[facility] [place] [id number] [facility] Urea nitrogen [Mass/Vol] 40 mg/dL High 7-25 [facility] Comment on above: Order Comment: FASTI NG Y Performed By: #### C BC, CRP, BMP, LIPID, A1C WTH eA, MG ####[place] [address] [place] [address] [facility] C-Reactive Proteinon 024 C-Reactive Protein 12.5 mg/dL High 0.0-0.5 [facility] Comment on above: Order Comment: FASTI NG Y Performed By: #### C BC, CRP, BMP, LIPID, A1C WTH eA, MG ####[place] [address] [place] [id number] [facility] Cholesterol [Mass/volume] in Serum or PlasmaOrdered By: Gabriel Gould on 04-10-2023 Cholesterol [Mass/Vol] 74 mg/dL Low 140-200 [facility] Comment on above: Chol less than 200 m g/dl low riskChol 201-239 mg/dl borderline riskChol 240 mg/dl and greater high risk Order Comment: FASTI NG Y Result Comment: Chol less than 200 mg/dl low risk Chol 201-239 mg/dl borderline risk Chol 240 mg/dl and greater high risk Performed By: #### C BC, CRP, BMP, LIPID, A1C WTH eA, MG ####[place] [address] [place] [id number] [place] Cholesterol in LDL Calc [Mas s/Vol]Ordered By: Gabriel Gould on 04-10-2023 Cholesterol in LDL [Mass/Vol] 21 mg/dL 0-100 [facility] Comment on above: LDL ATP III CLASSIFI CATIONLDL less than 100 mg/dL OptimalLDL 100-129 mg/dL Near or above optimalLDL 130-159 mg/dL Borderline highLDL 160-189 mg/dL HighLDL greater than 189 mg/dL Very high Cholesterol in VLDL Calc [Ma ss/Vol]Ordered By: Gabriel Gould on 04-10-2023 Cholesterol in VLDL [Mass/Vol] 13 mg/dL [facility] Complete Blood Count Auto Di ffon 04-10-2023 Erythrocyte distribution width (RBC) [Ratio] 15.1 % High 12.0-14.8 [facility] Comment on above: Performed By: #### C BC, CRP, BMP, LIPID, A1C WTH eA, MG ####[address] Hematocrit (Bld) [Volume fraction] 30.7 % Low 38.8-50.0 [facility] Comment on above: Performed By: #### C BC, CRP, BMP, LIPID, A1C WTH eA, MG ####[address] Hemoglobin (Bld) [Mass/Vol] 10.4 g/dL Low 13.0-17.0 [facility] Comment on above: Performed By: #### C BC, CRP, BMP, LIPID, A1C WTH eA, MG ####[address] MCH (RBC) [Entitic mass] 31.1 pg Normal 27.5-35.2 [facility] Comment on above: Performed By: #### C BC, CRP, BMP, LIPID, A1C WTH eA, MG ####[address] MCV (RBC) [Entitic vol] 91.9 fL Normal 83.5-101 [facility] Comment on above: Performed By: #### C BC, CRP, BMP, LIPID, A1C WTH eA, MG ####[address] Mean Corpuscular HGB Conc 33.8 g/dL Normal 32.5-35.6 [facility] Comment on above: Performed By: #### C BC, CRP, BMP, LIPID, A1C WTH eA, MG ####[address] NRBC% 0.1 /100{WBC} Normal 0-0.5 [facility] Comment on above: Performed By: #### C BC, CRP, BMP, LIPID, A1C WTH eA, MG ####[address] Platelet mean volume (Bld) [Entitic vol] 8.5 fL Normal 6.6-10.1 [facility] Comment on above: Performed By: #### C BC, CRP, BMP, LIPID, A1C WTH eA, MG ####[address] Platelets (Bld) [#/Vol] 215 10*3/uL Normal 150-450 [facility] Comment on above: Performed By: #### C BC, CRP, BMP, LIPID, A1C WTH eA, MG ####[address] RBC (Bld) [#/Vol] 3.34 10*6/uL Low 3.90-5.60 [facility] Comment on above: Performed By: #### C BC, CRP, BMP, LIPID, A1C WTH eA, MG ####[place] [id number] [facility] Erythrocyte Sedimentation Ra kunal 04-10-2023 ESR (Bld) [Velocity] 68 mm/h High 0-19 [facility] Comment on above: Result Comment: PERF ORMED BY:[address] [place], [place] [phone] MEDICAL DIRECTORDEAN MCWILLIAMS M.D. Performed By: #### E SR ####[place] [id number] [facility] Erythrocyte sedimentation ra te by Photometric methodOrdered By: Alfredo Acosta on 04-10-2023 ESR Photometric method (Bld) [Velocity] 68 mm/hr 0-19 [facility] Glucose Poct Glucometerson 0 04-10-2023 Glucose [Mass/Vol] 398 mg/dL Normal [facility] Comment on above: Result Comment: [place] Glucose Reference Range is dependent on time and content of last meal. Glucose of more than 200 mg/dL in a nonstressed, ambulatory subject supports the diagnosis of Diabetes Mellitus.PERFORMED BY:[place] [address] [place], [place] [phone] MEDICAL DIRECTORDEAN MCWILLIAMS M.D. Performed By: #### G LULS ####Point of Care testing, Glucose [Mass/Vol] 308 mg/dL Normal [facility] Comment on above: Result Comment: [place] om Glucose Reference Range is dependent on time and content of last meal. Glucose of more than 200 mg/dL in a nonstressed, ambulatory subject supports the diagnosis of Diabetes Mellitus.PERFORMED BY:[place] [address] [place], [place] [phone] MEDICAL DIRECTORDEAN MCWILLIAMS M.D. Performed By: #### G LULS ####Point of Care testing, Commemt1 Glu2: Cleaned Meter Normal [facility] Comment on above: Result Comment: PERF ORMED BY:[place] [address] [place], [place] [phone] MEDICAL DIRECTORDEAN MCWILLIAMS M.D. Performed By: #### G LULS ####Point of Care testing, Glucose [Mass/Vol] 137 mg/dL Normal [facility] Comment on above: Result Comment: [place] om Glucose Reference Range is dependent on time and content of last meal. Glucose of more than 200 mg/dL in a nonstressed, ambulatory subject supports the diagnosis of Diabetes Mellitus. Performed By: #### G LULS ####Point of Care testing, Commemt1 Glu2: Cleaned Meter Normal [facility] Comment on above: Result Comment: PERF ORMED BY:[address] [place], [place] [phone] MEDICAL JAKE MCWILLIAMS M.D. Performed By: #### G LULS ####Point of Care testing, Glucose [Mass/Vol] 117 mg/dL Normal [facility] Comment on above: Result Comment: [place] om Glucose Reference Range is dependent on time and content of last meal. Glucose of more than 200 mg/dL in a nonstressed, ambulatory subject supports the diagnosis of Diabetes Mellitus. Performed By: #### G DARLENE ####Point of Care testing, Glucose mean value [Mass/vol ume] in Blood Estimated from glycated hemoglobinOrdered By: Gabriel Gould on 04-10-2023 Average glucose Estimated from glycated hemoglobin (Bld) [Mass/Vol] 235 mg/dL [facility] Hemoglobin A1c percentageOrd ered By: Gabriel Gould on 04-10-2023 HbA1c (Bld) [Mass fraction] 9.8 % High 4.3-5.6 [facility] Comment on above: Increased risk for d iabetes: 5.7 - 6.4diabetes: >6.4glycemic control for adults with diabetes: <7.0 Result Comment: Incr eased risk for diabetes: 5.7 - 6.4 diabetes: >6.4 glycemic control for adults with diabetes: <7.0 Performed By: #### C BC, CRP, BMP, LIPID, A1C WTH eA, MG ####[facility] Leukocytes [#/volume] in Blo od by Automated countOrdered By: Gabriel Gould on 04-10-2023 WBC (Bld) [#/Vol] 7.8 10*3/uL Normal 4.1-10.5 [facility] Comment on above: Performed By: #### C BC, CRP, BMP, LIPID, A1C WTH eA, MG ####[facility] [id number] Lipid Panelon 04-10-2023 LDL Cholesterol,Calculated 21 mg/dL Normal 0-100 [facility] Comment on above: Order Comment: FASTI NG Y Result Comment: LDL ATP III CLASSIFICATION LDL less than 100 mg/dL Optimal LDL 100-129 mg/dL Near or above optimal LDL 130-159 mg/dL Borderline high LDL 160-189 mg/dL High LDL greater than 189 mg/dL Very high Performed By: #### C BC, CRP, BMP, LIPID, A1C WTH eA, MG ####[facility] Ylr0025 [address] Triglyceride w/Reflex 66 mg/dL Normal 0-149 [facility] Comment on above: Order Comment: FASTI NG Y Result Comment: TRIG ATP III CLASSIFICATION TRIG less than 150 mg/dL Normal TRIG 150-199 mg/dL Borderline high TRIG 200-500 mg/dL High TRIG greater than 500 mg/dL Very high Standard traceable to the Center for Disease Conrtrol and Prevention (CDC) test method. Performed By: #### C BC, CRP, BMP, LIPID, A1C WTH eA, MG ####[facility] VLDL CHOLESTEROL 13 mg/dL Normal [facility] Comment on above: Order Comment: FASTI NG Y Performed By: #### C BC, CRP, BMP, LIPID, A1C WTH eA, MG ####[place] [address] Lymphocytes [#/volume] in Bl ood by Automated countOrdered By: Gabriel Gould on 04-10-2023 Lymphocytes (Bld) [#/Vol] 0.3 10*3/uL Low 1.00-4.8 [facility] Comment on above: Performed By: #### C BC, CRP, BMP, LIPID, A1C WTH eA, MG ####[place] [address] Lymphocytes/100 leukocytes i n Blood by Automated countOrdered By: Gabriel Gould on 04-10-2023 Lymphocytes/100 WBC (Bld) 3.6 % Normal . [facility] Comment on above: Performed By: #### C BC, CRP, BMP, LIPID, A1C WTH eA, MG ####[place] [address] MR foot LT wo conon 04-10-19 MR foot LT wo con Normal [facility] Magnesiumon 04-10-2023 Magnesium [Mass/Vol] 2.0 mg/dL Normal 1.9-2.7 [facility] Comment on above: Order Comment: FASTI NG Y Performed By: #### C BC, CRP, BMP, LIPID, A1C WTH eA, MG ####[place] [address] [place] [address] [facility] Neutrophils [#/volume] in Bl ood by Automated countOrdered By: Gabriel Gould on 04-10-2023 Neutrophils (Bld) [#/Vol] 6.6 10*3/uL Normal 1.8-7.7 [facility] Comment on above: Performed By: #### C BC, CRP, BMP, LIPID, A1C WTH eA, MG ####[place] [address] [place] [id number] [facility] Nucleated erythrocytes [Pres ence] in Blood by Automated countOrdered By: Gabriel Gould on 04-10-2023 Nucleated RBC Auto Ql (Bld) 0.1 /100{WBC} 0-0.5 [facility] Serum or plasma high density lipoprotein (HDL) cholesterol measurementOrdered By: Gabriel Gould on 04-10-2023 Cholesterol in HDL [Mass/Vol] 40 mg/dL Normal 23-92 [facility] Comment on above: HDL CHOL ATP-III CLA SSIFICATION Cardiovascular RiskHDL > or equal to 60 mg/dL LOWHDL < 40 mg/dL HIGH Order Comment: FASTI NG Y Result Comment: HDL CHOL ATP-III CLASSIFICATION Cardiovascular Risk HDL > or equal to 60 mg/dL LOW HDL < 40 mg/dL HIGH Performed By: #### C BC, CRP, BMP, LIPID, A1C WTH eA, MG ####[address] [address] [facility] Serum or plasma total choles terol/high density lipoprotein (HDL) cholesterol mass ratOrdered By: Gabriel Gould on 04-10-2023 Cholesterol.total/Chol esterol in HDL [Mass ratio] 1.9 {ratio} Normal <5.0 [facility] Comment on above: Order Comment: FASTI NG Y Result Comment: PERF ORMED BY:[address] [place], [place] [phone] MEDICAL JAKE MCWILLIAMS M.D. Performed By: #### C BC, CRP, BMP, LIPID, A1C WTH eA, MG ####[place] [address] [place] [id number] [facility] Triglyceride [Mass/volume] i n Serum or PlasmaOrdered By: Gabriel Gould on 04-10-2023 Triglyceride [Mass/Vol] 66 mg/dL 0-149 [facility] Comment on above: TRIG ATP III CLASSIF ICATIONTRIG less than 150 mg/dL NormalTRIG 150-199 mg/dL Borderline highTRIG 200-500 mg/dL High TRIG greater than 500 mg/dL Very highStandard traceable to the Center for Disease Conrtrol and Prevention (CDC) test method. US arterial pvr rest Amber US arterial pvr rest LE Normal [facility] US venous duplex LE LTon US venous duplex LE LT Normal Th [facility] Anisocytosis [Presence] in B lood by Light microscopyOrdered By: Mikey Allen on 04-09-2023 Anisocytosis Ql (Bld) Slight Normal [facility] Comment on above: Performed By: #### E SR, SCAN CBC, MG, BMP ####[facility] [id number] Bacteria identified Aer cx N om (Unsp spec)Ordered By: Mikey Allen on 04-09-2023 Superficial Wound Culture Proteus mirabilis [facility] Bacterial blood cultureOrder ed By: Mikey Allen on 04-09-2023 Bacteria identified Cx Nom (Bld) NO GROWTH 5 DAYS [facility] Bacteria identified Cx Nom (Bld) NO GROWTH 5 DAYS [facility] Basic Metabolic Panelon 03-15 Anion gap [Moles/Vol] 21.2 mmol/L High 6.0-15.0 [facility] Comment on above: Performed By: #### E SR, SCAN CBC, MG, BMP ####[facility] [id number] [place] [id number] [facility] Calcium [Mass/Vol] 9.8 mg/dL Normal 8.6-10.3 [facility] Comment on above: Performed By: #### E SR, SCAN CBC, MG, BMP ####[facility] [id number] [place] [id number] [facility] Chloride [Moles/Vol] 93 mmol/L Low 98-107 [facility] Comment on above: Performed By: #### E SR, SCAN CBC, MG, BMP ####[address] CO2 [Moles/Vol] 25.3 mmol/L Normal 21.0-31.0 [facility] Comment on above: Performed By: #### E SR, SCAN CBC, MG, BMP ####[address] Creatinine [Mass/Vol] 8.07 mg/dL High 0.70-1.30 [facility] Comment on above: Performed By: #### E SR, SCAN CBC, MG, BMP ####[address] Creatinine Clr Calc Pharmacy 10.36 Normal [facility] Comment on above: Result Comment: PERF ORMED BY:[address] [place], [place] [phone] MEDICAL DIRECTORDEAN MCWILLIAMS M.D. Performed By: #### E SR, SCAN CBC, MG, BMP ####[address] GFR/1.73 sq M.predicted MDRD (S/P/Bld) [Vol rate/Area] 6.732 mL/min/{1.73_m2} Normal [facility] Comment on above: Performed By: #### E SR, SCAN CBC, MG, BMP ####[address] Glucose [Mass/Vol] 175 mg/dL High 70-100 [facility] Comment on above: Result Comment: [place] om Glucose Reference Range is dependent on time and content of last meal. Glucose of more than 200 mg/dL in a nonstressed, ambulatory subject supports the diagnosis of Diabetes Mellitus. ADA recommended reference range Performed By: #### E SR, SCAN CBC, MG, BMP ####[address] Potassium [Moles/Vol] 5.5 mmol/L High 3.5-5.1 [facility] Comment on above: Performed By: #### E SR, SCAN CBC, MG, BMP ####[address] [address] [facility] Sodium [Moles/Vol] 134 mmol/L Low 136-145 [facility] Comment on above: Performed By: #### E SR, SCAN CBC, MG, BMP ####[address] [address] [facility] Urea nitrogen [Mass/Vol] 36 mg/dL High 7-25 [facility] Comment on above: Performed By: #### E SR, SCAN CBC, MG, BMP ####[address] [address] [facility] Blood Cultureon 04-09-2023 Bacteria identified Cx Nom (Bld) NO GROWTH 5 DAYS PERFORMED BY: [place] [address] PATHOLOGIST [employer]IC[employer] DEAN MCWILLIAMS M.D. Normal [facility] Comment on above: Performed By: #### C UBLD, LACTIC ####[place] [id number] [facility] Bacteria identified Cx Nom (Bld) NO GROWTH 5 DAYS PERFORMED BY: [address] [place] [address] PATHOLOGIST [employer] DEAN MCWILLIAMS M.D. Normal [facility] Comment on above: Performed By: #### C UBLD, LACTIC ####[place] [id number] [facility] Erythrocyte Sedimentation Ra kunla 04-09-2023 ESR (Bld) [Velocity] 91 mm/h High 0-19 [facility] Comment on above: Result Comment: PERF ORMED BY:[address] [place], [place] [phone] MEDICAL DIRECTORDEAN MCWILLIAMS M.D. Performed By: #### E SR, SCAN CBC, MG, BMP ####[address] [address] [facility] Glucose Poct Glucometerson 0 04-09-2023 Commemt1 Glu2: Cleaned Meter Normal [facility] Comment on above: Result Comment: PERF ORMED BY:[place] [address] [place], [place] [phone] MEDICAL DIRECTORDEAN MCWILLIAMS M.D. Performed By: #### G LULS ####Point of Care testing, Glucose [Mass/Vol] 275 mg/dL Normal [facility] Comment on above: Result Comment: [facility] Glucose Reference Range is dependent on time and content of last meal. Glucose of more than 200 mg/dL in a nonstressed, ambulatory subject supports the diagnosis of Diabetes Mellitus. Performed By: #### G LULS ####Point of Care testing, Hypochromia LM Ql (Bld)Order ed By: Mikey Allen on 04-09-2023 Hypochromia Ql (Bld) Slight [facility] Lactate [Moles/volume] in Se rum or PlasmaOrdered By: Mikey Allen on 04-09-2023 Lactate [Moles/Vol] 1.1 mmol/L Normal 0.5-2.2 [facility] Comment on above: Result Comment: PERF ORMED BY:[place] [address] [place], [place] [phone] MEDICAL DIRECTORDEAN MCWILLIAMS M.D. Performed By: #### C UBLD, LACTIC ####[address] [address] [place] Magnesiumon 04-09-2023 Magnesium [Mass/Vol] 2.1 mg/dL Normal 1.9-2.7 [facility] Comment on above: Result Comment: PERF ORMED BY:[place] [address] [place], [place] [phone] MEDICAL DIRECTORDEAN MCWILLIAMS M.D. Performed By: #### E SR, SCAN CBC, MG, BMP ####[address] [address] [facility] Monocyte distribution width [Entitic volume] in Blood by AutomatedOrdered By: Mikey lAlen on 04-09-2023 Monocyte distribution width Auto (Bld) [Entitic vol] 22.19 % 0.00-20.00 [facility] Comment on above: For adults in ED, MD W > 20.0 may be associated with a higher risk of sepsis during the first 12 hrs of hospital admission Ovalocyte detectionOrdered B y: Mikey Allen on 04-09-2023 Ovalocytes LM Ql (Bld) Slight [facility] Platelet adequacy [Presence] in Blood by Light microscopyOrdered By: Mikey Alejandro on 04-09-2023 Platelets LM Ql (Bld) Normal Normal [facility] Platelet morphology finding [Identifier] in BloodOrdered By: Mikey Alejandro on 04-09-2023 Platelet morphology finding Nom (Bld) Normal Normal [facility] Poikilocytosis [Presence] in Blood by Light microscopyOrdered By: Mikey Alejandro on 04-09-2023 Poikilocytosis LM Ql (Bld) Slight [facility] RBC morphologyOrdered By: Sa lorena Allen on 04-09-2023 RBC morphology finding Nom (Bld) N/A [facility] Scan and CBCon 04-09-2023 Basophils (Bld) [#/Vol] 0.0 10*3/uL Normal 0.0-0.2 [facility] Comment on above: Performed By: #### E SR, SCAN CBC, MG, BMP ####[facility] [id number] [place] [id number] [place] Basophils/100 WBC (Bld) 0.5 % Normal . [facility] Comment on above: Performed By: #### E SR, SCAN CBC, MG, BMP ####[facility] Syd2905 [place] [address] [place] Eosinophils (Bld) [#/Vol] 0.1 10*3/uL Normal 0.0-0.45 [facility] Comment on above: Performed By: #### E SR, SCAN CBC, MG, BMP ####[facility] [id number] [place] [address] [place] Eosinophils/100 WBC (Bld) 1.1 % Normal . [facility] Comment on above: Performed By: #### E SR, SCAN CBC, MG, BMP ####[address] Erythrocyte distribution width (RBC) [Ratio] 15.3 % High 12.0-14.8 [facility] Comment on above: Performed By: #### E SR, SCAN CBC, MG, BMP ####[address] Hematocrit (Bld) [Volume fraction] 33.3 % Low 38.8-50.0 [facility] Comment on above: Performed By: #### E SR, SCAN CBC, MG, BMP ####[address] Hemoglobin (Bld) [Mass/Vol] 11.2 g/dL Low 13.0-17.0 [facility] Comment on above: Performed By: #### E SR, SCAN CBC, MG, BMP ####[address] Hypochromasia Slight Normal [facility] Comment on above: Performed By: #### E SR, SCAN CBC, MG, BMP ####[address] Lymphocytes (Bld) [#/Vol] 0.8 10*3/uL Low 1.00-4.8 [facility] Comment on above: Performed By: #### E SR, SCAN CBC, MG, BMP ####[address] Lymphocytes/100 WBC (Bld) 9.2 % Normal . [facility] Comment on above: Performed By: #### E SR, SCAN CBC, MG, BMP ####[address] MCH (RBC) [Entitic mass] 30.8 pg Normal 27.5-35.2 [facility] Comment on above: Performed By: #### E SR, SCAN CBC, MG, BMP ####[address] MCV (RBC) [Entitic vol] 92.2 fL Normal 83.5-101 [facility] Comment on above: Performed By: #### E SR, SCAN CBC, MG, BMP ####[address] Mean Corpuscular HGB Conc 33.4 g/dL Normal 32.5-35.6 [facility] Comment on above: Performed By: #### E SR, SCAN CBC, MG, BMP ####[address] Monocytes (Bld) [#/Vol] 1.6 10*3/uL High 0.0-0.8 [facility] Comment on above: Performed By: #### E SR, SCAN CBC, MG, BMP ####[address] Monocytes/100 WBC (Bld) 22.19 % High 0.00-20.00 [facility] Comment on above: Result Comment: For adults in ED, MDW > 20.0 may be associated with a higher risk of sepsis during the first 12 hrs of hospital admission Performed By: #### E SR, SCAN CBC, MG, BMP ####[address] Monocytes/100 WBC (Bld) 17.7 % Normal . [facility] Comment on above: Performed By: #### E SR, SCAN CBC, MG, BMP ####[address] Neutrophils (Bld) [#/Vol] 6.3 10*3/uL Normal 1.8-7.7 [facility] Comment on above: Performed By: #### E SR, SCAN CBC, MG, BMP ####[address] Neutrophils/100 WBC (Bld) 71.5 % Normal . [facility] Comment on above: Performed By: #### E SR, SCAN CBC, MG, BMP ####[address] NRBC% 0.1 /100{WBC} Normal 0-0.5 [facility] Comment on above: Performed By: #### E SR, SCAN CBC, MG, BMP ####[address] Ovalocytes Slight Normal [facility] Comment on above: Performed By: #### E SR, SCAN CBC, MG, BMP ####[address] Platelet Estimate Normal Normal Normal [facility] Comment on above: Performed By: #### E SR, SCAN CBC, MG, BMP ####[address] Platelet mean volume (Bld) [Entitic vol] 8.5 fL Normal 6.6-10.1 [facility] Comment on above: Performed By: #### E SR, SCAN CBC, MG, BMP ####[address] Platelet Morphology Normal Normal Normal [facility] Comment on above: Performed By: #### E SR, SCAN CBC, MG, BMP ####[address] Platelets (Bld) [#/Vol] 223 10*3/uL Normal 150-450 [facility] Comment on above: Performed By: #### E SR, SCAN CBC, MG, BMP ####[address] Poikilocytosis Slight Normal [facility] Comment on above: Performed By: #### E SR, SCAN CBC, MG, BMP ####[address] RBC (Bld) [#/Vol] 3.62 10*6/uL Low 3.90-5.60 [facility] Comment on above: Performed By: #### E SR, SCAN CBC, MG, BMP ####[address] WBC (Bld) [#/Vol] 8.8 10*3/uL Normal 4.1-10.5 [facility] Comment on above: Performed By: #### E SR, SCAN CBC, MG, BMP ####[facility] [id number] [place] [address] [facility] Superficial Wound Cultureon 04-09-2023 Superficial Wound Culture Normal [facility] Comment on above: Performed By: #### C USUP ####[facility] [id number] [place] [id number] [facility] XR foot LT min 3V*on 024 XR foot LT min 3V* Normal [facility] Outside Progress Noteon 03-15 Outside Progress Note [id number] Normal [facility] Follow-Upon 03-15-2023 Follow-Up [id number] Syed Murphy [place] 1955 M Date Provider Department Center 03/15/2023 DEIDRE GREEN [facility] No family history on file Level of Service:53151 PA POSTOP FOLLOW UP VISIT RELATED TO ORIGINAL PX Reason for Visit and Comments: Follow-up [033610] - Check maturation Rbrac-ceph AVF created on 01/18/23 [facility] Follow-Upon 02-06-2023 Follow-Up [id number] Syed Murphy [place] 1955 M Date Provider Department Center 02/06/2023 DEIDRE GREEN [facility] No family history on file Level of Service:06122 PA POSTOP FOLLOW UP VISIT RELATED TO ORIGINAL PX Reason for Visit and Comments: Post-op [483] - S/P RUE AV Fistula creation on 01/18/23 [facility] 29on 01-21-2023 29 Addendum created 01/03 1344 by Maranda Chavez MD Clinical Note Signed Normal [facility] APTTon 01-18-2023 ACTIVATED PARTIAL THROMBOPLASTIN TIME IN PPP BY COAGULATION ASSAY 29.4 Seconds Normal 25.0-35.0 [facility] Comment on above: Result Comment: Clin ical significance of the APTT is questionable in the presence of heparin. Performed By: #### L AB325 #### [facility] [address] [place] [address] Anesthesiaon 01-18-2023 Anesthesia [id number] Syed Murphy 1955 M Date Provider Department Center 01/18/2023 JOSÉ LYNN [facility] [place] Medical C No family history on file Normal [facility] BASIC METABOLIC PANELon Anion gap [Moles/Vol] 16 mmol/L Normal 7-20 [facility] Comment on above: Performed By: #### L AB15 ####[facility] [place] [address] Calcium [Mass/Vol] 9.6 mg/dL Normal 8.6-10.3 [facility] Comment on above: Performed By: #### L AB15 ####[facility] [place] [address] Chloride [Moles/Vol] 100 mmol/L Normal 98-107 [facility] Comment on above: Performed By: #### L AB15 ####[facility] [place] [address] CO2 [Moles/Vol] 23 mmol/L Normal 21-31 [facility] Comment on above: Performed By: #### L AB15 ####[facility] [place] [address] Creatinine [Mass/Vol] 7.03 mg/dL High 0.70-1.30 [facility] Comment on above: Performed By: #### L AB15 ####[facility] [place] [address] GLOMERULAR FILTRATION RATE ML/MIN/1.73 SQ M.PREDICTED 7.9 mL/min/1.73m*2 Low >60.0 [facility] Comment on above: Result Comment: [facility]???s estimated glomerular filtration rate (eGFR) [...] of individuals. Performed By: #### L AB15 ####[facility] [place] [address] Glucose [Mass/Vol] 96 mg/dL Normal 70-100 [facility] Comment on above: Performed By: #### L AB15 ####[facility] [place] [address] Potassium [Moles/Vol] 3.4 mmol/L Low 3.5-5.1 [facility] Comment on above: Performed By: #### L AB15 ####[facility] [place] [address] Sodium [Moles/Vol] 136 mmol/L Normal 136-145 [facility] Comment on above: Performed By: #### L AB15 ####[facility] [place] [address] Urea nitrogen [Mass/Vol] 19 mg/dL Normal 7-25 [facility] Comment on above: Performed By: #### L AB15 ####[facility] [place] [address] UREA NITROGEN/CREATININE (MASS RATIO) IN SER/PLAS 2.7 Normal [facility] Comment on above: Performed By: #### L AB15 ####[facility] [place] [address] CBCon 01-18-2023 Erythrocyte distribution width (RBC) [Ratio] 14.2 % Normal 11.5-15.0 [facility] Comment on above: Performed By: #### L [id number] #### [facility] [address] [place] [address] ERYTHROCYTE MEAN CORPUSCULAR HEMOGLOBIN CONCENTRATION (G/DL) BY AUTOMATED 33.2 g/dL Normal 32.0-35.0 [facility] Comment on above: Performed By: #### L [id number] #### [facility] [address] [place] [address] Hematocrit (Bld) [Volume fraction] 35.8 % Low 39.0-55.0 [facility] Comment on above: Performed By: #### L [id number] #### [facility] [address] [place] [address] Hemoglobin (Bld) [Mass/Vol] 11.9 g/dL Low 13.0-17.0 [facility] Comment on above: Performed By: #### L [id number] #### [facility] [address] [place] [address] MCH (RBC) [Entitic mass] 31.2 pg Normal 27.0-33.0 [facility] Comment on above: Performed By: #### L [id number] #### [facility] [address] [place] [address] MCV (RBC) [Entitic vol] 93.7 fL Normal 82.0-98.0 [facility] Comment on above: Performed By: #### L [id number] #### [facility] [address] [place] [address] PLATELETS (10*3/UL) IN BLOOD AUTOMATED COUNT 189 10*3/uL Normal 150-400 [facility] Comment on above: Performed By: #### L [id number] #### [facility] [address] [place] [address] RBC (Bld) [#/Vol] 3.82 10*6/uL Low 4.20-5.70 [facility] Comment on above: Performed By: #### L [id number] #### [facility] [address] [place] [address] WBC (Bld) [#/Vol] 6.40 10*3/uL Normal 4.00-10.60 [facility] Comment on above: Performed By: #### L [id number] #### [facility] [address] [facility] [place] [address] [place] 01-18-2023 Lab [id number] Syed Murphy marshall 1955 M Date Provider Department [place] 01/18/2023 2245-[facility] RESOURCE [facility] OPD [facility] No family history on file Normal [facility] MRSA/MSSA DNA NASALon 2022 MRSA DNA Negative Normal Negative [facility] Comment on above: Order Comment: [...] preclude nasal colonization. Performed By: #### L [id number] ####[facility] ([facility])[address] [place] [address] MSSA DNA Negative Normal Negative [facility] Comment on above: Order Comment: [...] preclude nasal colonization. Performed By: #### L [id number] ####[facility] ([facility])[address] [place] [address] NURSNOTEon 01-18-2023 NURSNOTE Prescription filled and sent home with patient. Cont with + thrill and bruit. Stable for DC home. [facility] NURSNOTE DC instructions revi ewed with patient and mother, copy given. [facility] OPNOTEon 01-18-2023 OPNOTE ------ -- Attestation signed by Greg Alarcon MD at 01/18/2023 2:03 PM I was present for the entire procedure. -- DATE OF PROCEDURE: 01/18/23 PATIENT NAME: Seth Murphy SURGEON: * Greg Alarcon - Primary ASSISTANTS: Ana Snyder MD STAFF: Land Acquisition Manager: Clifford Cheek RN Scrub Person: VELVET Schumacher Land Acquisition Manager: NINOSKA CLAYTON Scrub: Ron Gama CST PRE-OP DIAGNOSIS: ESRD POST-OP DIAGNOSIS: same PROCEDURE: Procedure(s): Right Radial Cephalic Fistula Creation - CPT Codes 30955,64485,59628,80509 (Right) ANESTHESIA: General EBL: 5 mL FLUIDS: [...] Alarcon was present for the entire procedure. [facility] Orders Onlyon 01-18-2023 Orders Only [id number] Syed Murphy marshall 1955 M Date Provider Department Center 01/18/2023 ALAN [place] [facility] No family history on file [facility] POCT GLUCOSE METER UNSOLICIT ED RESULTSon 01-18-2023 Glucose [Mass/Vol] 116 mg/dL High 70-105 [facility] Comment on above: Order Comment: Waive d Testing in the ED is performed under the ED CLIA certificate #[id number]. Result Comment: rtat e Performed By: #### L [id number] #### [facility] [address] [place] [address] POCT PERFUSION PANEL UNSOLIC ITED RESULTSon 01-18-2023 CO2 [Moles/Vol] 28.0 mmol/L Normal 21.0-29.0 [facility] Comment on above: Performed By: #### L [id number] ####[facility] ([facility] [place] [address] Glucose [Mass/Vol] 116 mg/dL High 70-105 [facility] Comment on above: Performed By: #### L [id number] ####[facility] ([facility] [place] [address] HCO3 (Bld) [Moles/Vol] 26.8 mmol/L Normal 23.0-28.0 [facility] Comment on above: Performed By: #### L [id number] ####[facility] ([facility])[address] [place] [address] Hematocrit (Bld) [Volume fraction] 36 % Low 38-51 [facility] Comment on above: Performed By: #### L [id number] ####[facility] ([facility])[address] [place] [address] Hemoglobin (Bld) [Mass/Vol] 12.2 g/dL Normal 12.0-17.0 [facility] Comment on above: Performed By: #### L [id number] ####[facility] ([facility])[address] [place] [address] POCT BASE EXCESS 2.0 mmol/L Normal -2.0-3.0 [facility] Comment on above: Performed By: #### L [id number] ####[facility] ([facility])[address] [place] [address] POCT IONIZED CALCIUM 1.24 mmol/L Normal 1.12-1.32 [facility] Comment on above: Performed By: #### L [id number] ####[facility] ([facility])[address] [place] [address] POCT PCO2 43.4 mmHg Normal 41.0-51.0 [facility] Comment on above: Performed By: #### L [id number] ####[facility] ([facility])[address] [place] [address] POCT PH 7.40 Normal 7.31-7.41 [facility] Comment on above: Performed By: #### L [id number] ####[facility] ([facility])[address] [place] [address] POCT PO2 43 mmHg Low 80-105 [facility] Comment on above: Performed By: #### L [id number] ####[facility] ([facility])[address] [place] [address] POCT SO2 78 % Low 95-98 [facility] Comment on above: Performed By: #### L [id number] ####[facility] ([facility])[address] [facility] [place] [address] Potassium [Moles/Vol] 3.5 mmol/L Normal 3.5-4.9 [facility] Comment on above: Performed By: #### L [id number] ####[facility] ([facility] [facility] [place] [address] Sodium [Moles/Vol] 135 mmol/L Low 138.0-146 . 0 [facility] Comment on above: Performed By: #### L [id number] ####[facility] [place] [address] PROTIME-INRon 01-18-2023 INR IN PPP BY COAGULATION ASSAY 1.00 Normal 0.90-1.10 [facility] Comment on above: Result Comment: [...] 1995;108:231S-246S. Performed By: #### L [id number] #### [facility]) [address] [place] [address] PROTHROMBIN TIME (PT) IN PPP BY COAGULATION ASSAY 13.2 Seconds Normal 12.3-14.8 [facility] Comment on above: Performed By: #### L [id number] #### [facility] ([facility]) [address] [place] [address] Orders Onlyon 01-16-2023 Orders Only [id number] Syed Murphy marshall 1955 M Date Provider Department Center 01/16/2023 [facility] No family history on file Normal [facility] ANESon 01-15-2023 ANES Physical Exam Airway Mallampati: III TM distance: >3 FB Neck ROM: full Cardiovascular Rhythm: regular Rate: normal Dental Pulmonary Plan ASA 3 Moderate Normal [facility] HPon 01-15-2023 HP History Of Present I llness Seth Murphy is a 67 y.o. male with [...] ESRD (end stage renal disease) on dialysis ([facility]) [N18.6, Z99.2 (ICD-10-CM)] Right: Patent radial inflow artery with volume flow of 214 ml/min. Patent radial artery with biphasic waveforms. Average volume flow within radial to cephalic arteriovenous fistula is 410 ml/min. Patent outflow proximal cephalic vein with no evidence of stenosis or narrowing. Patent subclavian spectral Doppler waveforms. Notes: Indication: ESRD (end stage renal disease) on dialysis ([facility]) [N18.6, Z99.2 (ICD-10-CM)] Right: Patent radial [...] Problems: End stage renal disease on dialysis ([facility]) Encounter for pre-operative examination 67 yo male with history of right upper extremity AVF who presents today for fistulogram Fistulogram today, if procedure goes well patient can be discharged after procedure. Ana Phan MD PGY-4 Vascular Surgery Resident 01/15/23 [facility] NURSNOTEon 01-15-2023 NURSNOTE RN educated pt on d/ c instructions. RN encouraged pt to voice any questions or concerns. Pt verbalizes no questions or concerns at this time. Pt was wheeled off of unit with all of belongings. [facility] Orders Onlyon 01-10-2023 Orders Only [id number] Syed Murphy 1955 M Date Provider Department Center 01/10/2023 730-BEBE CAMPOS [facility] No family history on file [facility] Follow-Upon 01-09-2023 Follow-Up [id number] Syed Murphy marshall 1955 M Date Provider Department [place] 01/09/2023 503-DEIDRE SANDERSON [facility] No family history on file Level of Service:48490 PA OFFICE/OUTPATIENT ESTABLISHED LOW MDM 20-29 MIN Reason for Visit and Comments: Follow-up [337784] - radiocephalic AV fistula creation 10/04/22 [facility] Follow-Upon 10-16-2022 Follow-Up [id number] Syed Murphy marshall 1955 M Date Provider Department Center 10/16/2022 DimitriNeymarLOR GAMEZEN [facility] No family history on file Level of Service:20042 PA OFFICE/OUTPT VISIT,PROCEDURE ONLY Reason for Visit and Comments: Follow-up [222646] - 2 week post op R AVF creation [facility] HPon 10-02-2022 [facility] Vascular Surgery HISTORY & PHYSICAL Reason for Admission: Right AV fistula creation History of Present Illness: Seth Murphy is a 66 y.o. male with PMH significant for ESRD, diabetes, anemia, HTN, HLD, hypothyroidism, [place], and peripheral vascular disease. He presents today [...] for ESRD, diabetes, anemia, HTN, HLD, hypothyroidism, [place], and peripheral vascular disease who presents today for right AV fistula creation. Plan: Will proceed with right AV fistula creation today with Dr. Alarcon Risks, benefits, and alternatives were discussed with patient and he is agreeable Jessee Mitchell MD General Surgery Resident, PGY-1 Vascular Surgery Service 10/02/22 [facility] OPNOTEon 10-02-2022 OPNOTE ------ -- Attestation signed [...] Gutierrez MD General Surgery PGY4 10/03/2022 Normal [facility] POCT PERFUSION PANEL UNSOLIC ITED RESULTSon 10-02-2022 CO2 [Moles/Vol] 26.0 mmol/L Normal 21.0-29.0 [facility] Comment on above: Performed By: #### L [id number] #### [facility] ([facility]) [address] [place] [address] Glucose [Mass/Vol] 154 mg/dL High 70-105 [facility] Comment on above: Performed By: #### L [id number] #### [facility] ([facility]) [address] [place] [address] HCO3 (Bld) [Moles/Vol] 24.5 mmol/L Normal 23.0-28.0 [facility] Comment on above: Performed By: #### L [id number] #### [facility] ([facility]) [address] [place] [address] Hematocrit (Bld) [Volume fraction] 43 % Normal 38-51 [facility] Comment on above: Performed By: #### L [id number] #### [facility] ([facility]) [address] [place] [address] Hemoglobin (Bld) [Mass/Vol] 14.6 g/dL Normal 12.0-17.0 [facility] Comment on above: Performed By: #### L [id number] #### [facility] ([facility]) [address] [place] [address] POCT BASE EXCESS -1.0 mmol/L Normal -2.0-3.0 [facility] Comment on above: Performed By: #### L [id number] #### [facility]) [address] [place] [address] POCT IONIZED CALCIUM 1.26 mmol/L Normal 1.12-1.32 [facility] Comment on above: Performed By: #### L [id number] #### [facility] ([facility]) [address] [place] [address] POCT PCO2 41.3 mmHg Normal 41.0-51.0 [facility] Comment on above: Performed By: #### L [id number] #### [facility] ([facility]) [address] [place] [address] POCT PH 7.38 Normal 7.31-7.41 [facility] Comment on above: Performed By: #### L [id number] #### [facility] ([facility]) [address] [place] [address] POCT PO2 45 mmHg Low 80-105 [facility] Comment on above: Performed By: #### L [id number] #### [facility] ([facility]) [address] [place] [address] POCT SO2 79 % Low 95-98 [facility] Comment on above: Performed By: #### L [id number] #### [facility] [address] [place] [address] Potassium [Moles/Vol] 4.2 mmol/L Normal 3.5-4.9 [facility] Comment on above: Performed By: #### L [id number] #### [facility] [address] [place] [address] Sodium [Moles/Vol] 137 mmol/L Low 138.0-146 . 0 [facility] Comment on above: Performed By: #### L [id number] #### [facility] [address] [place] [address] US Arterial and Venous Mappi [facility] 08-17-2022 US Arterial and Venous Mapping Exam [...] : 0.37 Depth (cm) : 0.22 Right Checkroom Attendant Vn Diameter (cm) : 0.48 Right Lateral [...] (cm) : Non vis prev fistula Left Checkroom Attendant Vn Diameter (cm) : 0.21 Left Medial [...] Lower Arm Diameter (cm) : 0.14 Normal [facility] Consent for Treatmenton 07-0 Consent for Treatment [id number]#1.00CD:127 [facility] Coding Queryon 08-10-2022 Coding Query - From: Irma Rodriguez RN To: Dorian FISH, Greg Lopez; Sent: 07/20/2022 14:18:26 EDT ! Subject: Coding [...] desired or expected. Thank you!irma [phone] From: Dorian FISH, Greg Lopez To: Michael TORREZ, Irma Larson; Sent: 08/10/2022 10:17:09 EDT Subject: RE: Coding Query Caller Name: SETH MURPHY; Caller Number: H This was excisional debridement of the left upper arm, using knife and electrocautery Bovie. Measurements and depth mentioned in the op report Normal [facility] Outside Recordson 08-02-2022 Outside Records [id number]#1.00CD:127 Normal [facility] Consent for Treatmenton 07-12 Consent for Treatment [id number]#1.00CD:127 Normal [facility] Heart and Vascular Office/Cl inic Noteon 07-30-2022 [...] with contrast (08/04/2020), Removal of catheter (07/07/2020), 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), AV - Creation of arteriovenous fistula [...] Mother. Primary malign (more content not included)... Normal [facility] Comment on above: Result Comment: Elec tronically Signed By: Dorian FISH, Greg Lopez\.br\Date and Time Signed: 07/30/22 09:29 EDT Outside Recordson 07-30-2022 Outside Records [id number]#1.00CD:127 Normal [facility] Physician Orderon 07-30-2022 Physician Order [id number]#1.00CD:127 Normal [facility] Progress Note-Physicianon Progress Note-Physician Assessment/Plan 1. Sepsis [...] artery disease (I25.10: Atherosclerotic heart disease of [place] coronary artery without angina pectoris) -Aspirin, atorvastatin, [...] stage renal disease) On HD M/W/F at [facility] -Consult nephro - pending -BP is soft [...] deep vein thrombosis (DVT) prophylaxis (Z79.899: Other detention (current) drug therapy) -Heparin sq with early ambulation -Plan discussed w/ patient, nursing staff and CRM. This report was transcribed using voice recognition software. Every effort was made to ensure accuracy, however, inadvertently computerized loss prevention coordinator mistakes may be present. Subjective Pt seen [...] Lymph Auto: 11.3 % Low (07/15/22 06:07:00) [place] Auto: 16.4 % High (07/15/22 06:07:00) (more content not included)... Normal [facility] Comment on above: Result Comment: Elec tronically Signed By: WESLEY PETEVijaya\.br\Date and Time Signed: 07/15/22 12:01 EDT\.br\Electronically Co-Signed By: Vijaya SANDOVAL\.br\Date and Time Co-Signed: 07/15/22 12:02 EDT\.br\Electronically Co-Signed By: Fuentes Rodriguez MD\.br\Date and Time Co-Signed: 07/23/22 07:37 EDT Discharge Instructionson Discharge Instructions [id number]#1.00CD:127 Normal [facility] Monitor Recordon 07-20-2022 Monitor Record [id number]#1.00CD:127 Normal [facility] Transfer Documentson 023 Transfer Documents [id number]#1.00CD:127 Normal [facility] BMPon 07-19-2022 Creatinine [Mass/Vol] 7.7 mg/dL Abnormal 0.5-1.3 [facility] Comment on above: Result Comment: Crit ical Result verified by previous result\Critical Result S_CREA:7.70 Called to [facility] by CATHY LERNER And Read Back For Confirmation at: 07/19/2022 08:27:40\Result S_CREA:7.70 Called to [facility] AT [facility] by CATHY LERNER And Read Back For Confirmation at: 07/19/2022 08:27:40 Performed By: #### 1 [id number], [id number], 8203789, 1273625 #### [facility] [address] [place] [address] Anion gap [Moles/Vol] 9 mmol/L Normal 6-16 [facility] Comment on above: Performed By: #### 1 [id number], 5879967, 8728937, 1920140 #### [facility] [address] [place] [address] Calcium [Mass/Vol] 8.0 mg/dL Low 8.9-11.1 [facility] Comment on above: Performed By: #### 1 7631487, 3460568, 3320876, 3381229 #### [facility] [address] [place] [address] Chloride [Moles/Vol] 104 mmol/L Normal 101-111 [facility] Comment on above: Performed By: #### 1 [id number], 0800928, 8670565, 9141853 #### [facility] [address] [place] [address] CO2 [Moles/Vol] 27 mmol/L Normal 21-31 [facility] Comment on above: Performed By: #### 1 2008895, 7950187, 6840932, 7579642 #### [facility] [address] [place] [address] Glucose [Mass/Vol] 180 mg/dL Normal 55-199 [facility] Comment on above: Result Comment: If t his glucose result represents a fasting glucose, interpretation should refer to the following reference range: 55-99 mg/dL Performed By: #### 1 [id number], 3937220, 7559879, 1517572 #### [facility] [address] [place] [address] Potassium [Moles/Vol] 3.7 mmol/L Normal 3.5-5.3 [facility] Comment on above: Performed By: #### 1 6628637, 0295921, 2835378, 7362989 #### [facility] [address] [place] [address] Sodium [Moles/Vol] 136 mmol/L Normal 135-145 [facility] Comment on above: Performed By: #### 1 8847904, 7128233, 3473742, 7042926 #### [facility] [address] [place] [address] Urea nitrogen [Mass/Vol] 18 mg/dL Normal 5-21 [facility] Comment on above: Performed By: #### 1 9014665, 3308303, 2866079, 0955961 #### [facility] [address] [place] [address] Urea nitrogen/Creatinine [Mass ratio] 2 No Units Low 10-20 [facility] Comment on above: Performed By: #### 1 [id number], 8693550, 6026447, 3830530 #### [facility] [address] [place] [address] CBC w/Indiceson 07-19-2022 Erythrocyte distribution width (RBC) [Ratio] 17.6 % High 10.9-14.2 [facility] Comment on above: Performed By: #### 1 5124192, 5962310, 6803195, 5359347 #### [facility] [address] [place] [address] Hematocrit (Bld) [Volume fraction] 25.0 % Low 37.7-49.0 [facility] Comment on above: Performed By: #### 1 4827996, 2560663, 2032075, 2142171 #### [facility] [address] [place] [address] Hemoglobin (Bld) [Mass/Vol] 8.3 g/dL Low 13.5-17.5 [facility] Comment on above: Performed By: #### 1 9746901, 0522437, 6716707, 1918510 #### [facility] [address] [place] [address] MCH (RBC) [Entitic mass] 30.0 pg Normal 27.0-34.0 [facility] Comment on above: Performed By: #### 1 7458104, 4678464, 5871496, 5606527 #### [facility] [address] [place] [address] MCHC (RBC) [Mass/Vol] 33.4 g/dL Normal 31.4-36.0 [facility] Comment on above: Performed By: #### 1 [id number], 9102381, 7166595, 4170370 #### [facility] [address] [place] [address] MCV (RBC) [Entitic vol] 90.1 fL Normal 80.0-100.0 [facility] Comment on above: Performed By: #### 1 1908644, 8644619, 9309125, 7478664 #### [facility] [address] [place] [address] Platelet mean volume (Bld) [Entitic vol] 8.0 fL Normal 6.4-10.8 [facility] Comment on above: Performed By: #### 1 5346843, 5111766, 3760703, 2469246 #### [facility] [address] [place] [address] Platelets (Bld) [#/Vol] 204.0 E9/L Normal 150.0-500. 0 [facility] Comment on above: Performed By: #### 1 7058509, 7911209, 4956161, 6611409 #### [facility] [address] [place] [address] RBC (Bld) [#/Vol] 2.8 E12/L Low 4.3-5.9 [facility] Comment on above: Performed By: #### 1 0687329, 1080698, 1789454, 4649070 #### [facility] [address] [place] [address] WBC corrected for nucl RBC Auto (Bld) [#/Vol] 6.1 E9/L Normal 4.0-11.0 [facility] Comment on above: Performed By: #### 1 8692931, 0960838, 6350408, 0110893 #### [facility] [address] [place] [address] Capillary Glucose POCon 06-0 8-2022 Glucose [Mass/Vol] 198 mg/dL High 55-99 [facility] Comment on above: Result Comment: Run Lab Confirmation No Coverage Given Insulin Started Performed By: #### 1 6115344, 4124685, 8667919, 1974685 #### [facility] [address] [place] [address] Glucose [Mass/Vol] 187 mg/dL High 55-99 [facility] Comment on above: Result Comment: Ambrocio ELIAS Performed By: #### 1 8766444, 4909369, 0218340, 5338658 #### [facility] [address] [place] [address] Glucose [Mass/Vol] 110 mg/dL High 55-99 [facility] Comment on above: Result Comment: Ambrocio ELIAS Performed By: #### 2 [id number] ####[facility] [address] [place] [address] Glucose [Mass/Vol] 162 mg/dL High 55-99 [facility] Comment on above: Result Comment: Ambrocio ELIAS Performed By: #### 2 [id number] ####[facility] [address] [place] [address] Inpatient Clinical Summaryon 07-19-2022 Inpatient Clinical Summary [address] [address] Clinical Summary Person Information: Name: SETH MURPHY Age: 66 Years : 1955 Sex: Male PCP: Nav Alejo MD Marital Status: Race: White Ethnicity: Non- or Language: Bermudian Visit Id: Visit Reason: INFECTION Speciality: Acuity: Enc Type: Inpatient Med Service: Medical Arrival: 07/12/2022 14:01:25 Discharge: Dispo Type: Address: [address] [place] [id number] Provider Notes: Diagnosis: 1:Sepsis; 2:Cellulitis of arm; [...] 100 Units Intravenous every 24 hours. Follow [facility] PICC line flushing policy. Refills: 0. insulin [...] FISH, Loco Roman; Dorian FISH, Greg Lopez; Cristino Walker MD Referring Physician: Follow up: With: Address: When: Greg Alarcon [address] [place] [address] Business (1) Within 7 to 10 days With: Address: When: Alfredo Acosta [address] [place] [address] Business (1) Within 1 to 2 weeks With: Address: When: [place] [facility]: [facility] [phone] Within 5 to 7 days With: Address: When: Nav Alejo [address] [place] [address], [facility] [place] [address] Business (1) Patient Education Information: Cellulitis, Adult, Tekx-fw-Nrxs; Antibiotic Medicine, Adult, Splw-si-Tdvb [facility] To Dose Normal [facility] Inpatient Patient Summaryon 07-19-2022 Inpatient Patient Summary SETH MURPHY :1955 Visit Date:07/12/2022 Inpatient Discharge Instructions Your Care Team Admitting Physician - Fuentes Rodriguez MD Consulting Physician - Aaron FISH, Alfredo Patino M.D Reason for Your Visit r/o infection of [...] with contrast (08/04/2020), Removal of catheter (07/07/2020), 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), AV - Creation of arteriovenous fistula [...] Pending Diagnostic Test Results None Pharmacy Information [facility] ([facility]3] Discharge Instructions Follow up appts as writtenLeft arm incision daily dry dressing with 4 x 4 and paper tape, wet to dry dressing around sutures twice a day to left postop fistula site, every other day cleanse right heel with saline, apply Aquacel Ag, gauze, New Follow Up Appointments after Discharge Follow Up with Gerg Alarcon When: Within 7 to 10 days Where: [address] [place] [address]- Business (1) Follow Up with Alfredo Acosta When: Within 1 to 2 weeks Where: [address] [place] [address]- Business (1) Follow Up with [facility]: [facility] [phone] When: Within 5 to 7 days Follow Up with Nav Alejo When: In 0 days Where: [address] [place] [address]- Business (1) Medications What How Much When [...] By M (more content not included)... Normal [facility] Inpatient Patient Summary [address] [address] Patient Discharge Instructions PERSON INFORMATION Name: SETH MURPHY Date of : 1955 Current Date: 07/19/2022 17:08:10 PHYSICIANS Admitting Physician: Michael FISH, [facility] Primary Care Physician: Nav Alejo MD PCP [...] up: With: Address: When: Greg Alarcon [address] [place] [address] Business (1) Within 7 to 10 days With: Address: When: Alfredo Acosta [address] [place] [address] Business (1) Within 1 to 2 weeks With: Address: When: [facility]: [place] [phone] Within 5 to 7 days With: Address: When: Nav Alejo [address], [facility] [place] [address] Business (1) In the event that this physician does not participate in your insurance network, please consult with your insurance company to find a nearby participating provider. Comment: KATHERINE Vilchis WILLIAM, have received the attached patient [...] 100 Units Intravenous every 24 hours. Follow [facility] PICC line flushing policy. Refills: 0. Last [...] Mouth ever (more content not included)... Normal [facility] Monitor Recordon 07-19-2022 Monitor Record [id number]#1.00CD:127 Normal [facility] Monitor Record [id number]#1.00CD:127 Normal [facility] Monitor Record [id number]#1.00CD:127 Normal [facility] Monitor Record [id number]#1.00CD:127 Normal [facility] Monitor Record [id number]#1.00CD:127 Normal [facility] Progress Note-Nurseon 2022 Progress Note-Nurse [id number]#1.00CD:127 Normal [facility] Progress Note-Nurse [id number]#1.00CD:127 [facility] Progress Note-Physicianon Progress Note-Physician Patient: SETH MURPHY Age: 66 years Sex: Male : 1955 Associated Diagnoses: None Author: Cristino Walker MD Chief Complaint Interval History Predialysis weight 96.7 [...] comment) hydrALAZ (more content not included)... Normal [facility] Comment on above: Result Comment: Elec tronically Signed By: Aaron FISH, Cristino\.br\Date and Time Signed: 07/19/22 09:34 EDT eGFRon 07-19-2022 GFR/1.73 sq M.predicted among non-blacks MDRD (S/P/Bld) [Vol rate/Area] 7 mL/min/1.73 m2 Low >=59 [facility] Comment on above: Order Comment: Order added by Discern Expert. Result Comment: Ditcher jm kidney disease could be indicated at eGFR's of less than 60 mL/min/1.73m2. Kidney failure is indicated at less than 15 mL/min/1.73m2. Performed By: #### 1 [id number], 1409571, 1610000, 9217796 #### [facility] [address] [place] [address] BMPon 07-18-2022 Creatinine [Mass/Vol] 9.7 mg/dL Abnormal 0.5-1.3 [facility] Comment on above: Result Comment: Crit ical Result verified by repeat analysis\Critical Result S_CREA:9.70 Called to MARC SRINIVASAN AT 3S by DK DAVIES And Read Back For Confirmation at: 07/18/2022 07:11:52\Result S_CREA:9.70 Called to MARC SRINIVASAN AT 3S by DK DAVIES And Read Back For Confirmation at: 07/18/2022 07:11:52 Performed By: #### 1 1207490, 4193947, 5927923, 6735616 #### [facility] [address] [place] [facility] [place] [address] Anion gap [Moles/Vol] 15 mmol/L Normal 6-16 [facility] Comment on above: Performed By: #### 1 2159294, 6983476, 1751984, 8692870 #### [facility] [address] [place] [address] Calcium [Mass/Vol] 8.1 mg/dL Low 8.9-11.1 [facility] Comment on above: Performed By: #### 1 5184217, 8248745, 6472873, 4152491 #### [facility] [address] [place] [address] Chloride [Moles/Vol] 104 mmol/L Normal 101-111 [facility] Comment on above: Performed By: #### 1 5721746, 2920813, 1263091, 2196188 #### [facility] [address] [place] [address] CO2 [Moles/Vol] 23 mmol/L Normal 21-31 [facility] Comment on above: Performed By: #### 1 0074868, 1069175, 1872238, 0923715 #### [facility] [address] [place] [address] Glucose [Mass/Vol] 131 mg/dL Normal 55-199 [facility] Comment on above: Result Comment: If t his glucose result represents a fasting glucose, interpretation should refer to the following reference range: 55-99 mg/dL Performed By: #### 1 7659464, 4409143, 0506050, 5929607 #### [facility] [address] [place] [address] Potassium [Moles/Vol] 3.8 mmol/L Normal 3.5-5.3 [facility] Comment on above: Performed By: #### 1 5939824, 9115249, 5456381, 4414846 #### [facility] [address] [place] [address] Sodium [Moles/Vol] 138 mmol/L Normal 135-145 [facility] Comment on above: Performed By: #### 1 5414997, 9739812, 0830147, 8272979 #### [facility] [address] [place] [address] Urea nitrogen [Mass/Vol] 29 mg/dL High 5-21 [facility] Comment on above: Performed By: #### 1 1806195, 3890839, 7541221, 2217111 #### [facility] [address] [place] [address] Urea nitrogen/Creatinine [Mass ratio] 3 No Units Low 10-20 [facility] Comment on above: Performed By: #### 1 4795030, 7121672, 2928117, 2817341 #### [facility] [address] [place] [address] CBC w/Indiceson 07-18-2022 Erythrocyte distribution width (RBC) [Ratio] 17.2 % High 10.9-14.2 [facility] Comment on above: Performed By: #### 1 1847615, 2326941, 3770771, 5262832 #### [facility] [address] [place] [address] Hematocrit (Bld) [Volume fraction] 25.0 % Low 37.7-49.0 [facility] Comment on above: Performed By: #### 1 4178306, 4767592, 4055142, 6529006 #### [facility] [address] [place] [address] Hemoglobin (Bld) [Mass/Vol] 8.5 g/dL Low 13.5-17.5 [facility] Comment on above: Performed By: #### 1 2482847, 1488198, 9251033, 2416288 #### [facility] [address] [place] [address] MCH (RBC) [Entitic mass] 30.3 pg Normal 27.0-34.0 [facility] Comment on above: Performed By: #### 1 8171367, 5365478, 5613181, 5413196 #### [facility] [address] [place] [address] MCHC (RBC) [Mass/Vol] 33.9 g/dL Normal 31.4-36.0 [facility] Comment on above: Performed By: #### 1 2530686, 7205219, 5229236, 9689534 #### [facility] [address] [place] [address] MCV (RBC) [Entitic vol] 89.4 fL Normal 80.0-100.0 [facility] Comment on above: Performed By: #### 1 9355662, 5330113, 6687244, 6980216 #### [facility] [address] [place] [address] Platelet mean volume (Bld) [Entitic vol] 7.2 fL Normal 6.4-10.8 [facility] Comment on above: Performed By: #### 1 0539883, 6561194, 1601015, 4699978 #### [facility] [address] [place] [address] Platelets (Bld) [#/Vol] 187.0 E9/L Normal 150.0-500. 0 [facility] Comment on above: Performed By: #### 1 0237868, 9338160, 1836419, 1304650 #### [facility] [address] [place] [address] RBC (Bld) [#/Vol] 2.8 E12/L Low 4.3-5.9 [facility] Comment on above: Performed By: #### 1 2726550, 9488552, 0979919, 9164578 #### [facility] [address] [place] [address] WBC corrected for nucl RBC Auto (Bld) [#/Vol] 5.6 E9/L Normal 4.0-11.0 [facility] Comment on above: Performed By: #### 1 4518423, 3214160, 6852273, 3207887 #### [facility] [address] [place] [address] Capillary Glucose POCon 06-0 Glucose [Mass/Vol] 288 mg/dL High 55-99 [facility] Comment on above: Result Comment: Ambrocio ELIAS Performed By: #### 1 1228139, 4040352, 1400884, 7343827 #### [facility] [address] [place] [address] Glucose [Mass/Vol] 267 mg/dL High 55-99 [facility] Comment on above: Result Comment: Ambrocio ELIAS Performed By: #### 2 21823677 ####[facility] [address] [place] [address] Glucose [Mass/Vol] 122 mg/dL High 55-99 [facility] Comment on above: Result Comment: Ambrocio ELIAS Performed By: #### 2 82301385 ####[facility] [address] [place] [address] Glucose [Mass/Vol] 129 mg/dL High 55-99 [facility] Comment on above: Result Comment: Ambrocio ELIAS Performed By: #### 2 [id number] #### [facility] [address] [place] [address] Interdisciplinary Note - Paresh e Manageron 07-18-2022 Interdisciplinary Note - Conical Mixer Pt is awake and alert in bed, previously rounded with kyler CARRERA. Pt is receiving hemodialysis at this time, Plan to stay in hospital today, await cultures and will likely DC to [facility] tomorrow. Medicare rights reviewed, . PCP verified and insurance information reviewed and DME discussed. contact information provided and white board updated. [facility] Comment on above: Result Comment: Elec tronically Signed By: Obie TORREZ, Alaina\.br\Date and Time Signed: 07/18/22 11:15 EDT IntraOperative Documentson 07-18-2022 IntraOperative Documents [id number]#1.00CD:127 [facility] Message from Medicareon Message from Medicare [id number]#1.00CD:127 [facility] Message from Medicare [id number]#1.00CD:127 [facility] Monitor Recordon 07-18-2022 Monitor Record [id number]#1.00CD:127 [facility] Monitor Record [id number]#1.00CD:127 [facility] Monitor Record [id number]#1.00CD:127 [facility] Monitor Record [id number]#1.00CD:127 [facility] Progress Note - Pharmacyon 0 07-18-2022 Progress Note - Pharmacy Vancomycin Pharmacy to Dose Consult Note Indication: Skin and Skin Structure Infection Goal Range: Pre-HD Level: 15-20 RECOMMENDATIONS/ PLAN: Pharmacy consulted for vancomycin dosing for KATHERINE SETH, a 66 Years old, Male who is [...] any questions, please contact the pharmacy at [phone]. Age: 66 Years Allergies: Brilinta; Coban Bandage [...] mg/dL High (07/18/22 07:36:00) POC Device SN: [id number] (07/18/22 07:36:00) POC User ID: [id number] (07/18/22 07:36:00) POC Username: ROGER VALERIO (07/18/22 07:36:00) [facility] Progress Note-Physicianon Progress Note-Physician Assessment/Plan 1. [...] artery disease (I25.10: Atherosclerotic heart disease of [place] coronary artery without angina pectoris) -Aspirin, atorvastatin, [...] stage renal disease) On HD M/W/F at [facility] -Consult nephro -appreciated -- typically takes midodrine [...] deep vein thrombosis (DVT) prophylaxis (Z79.899: Other detention (current) drug therapy) -Heparin sq with early ambulation -Plan discussed w/ patient, nursing staff and CRM. This report was transcribed using voice recognition software. Every effort was made to ensure accuracy, however, inadvertently computerized loss prevention coordinator mistakes may be present. Subjective Patient seen [...] of napoleon (more content not included)... Normal [facility] Comment on above: Result Comment: Elec tronically Signed By: Vijaya SANDOVAL\.br\Date and Time Signed: 07/18/22 13:34 EDT\.br\Electronically Co-Signed By: Pedro ARAUZ MD\.br\Date and Time Co-Signed: 07/18/22 16:54 EDT Progress Note-Physician Patient: SETH MURPHY Age: 66 years Sex: Male : 1955 Associated Diagnoses: None Author: Brian SHIN, Sarah Ugalde Interval History 66-year-old gentleman with end-stage kidney disease on hemodialysis Saturday at [facility] (follows with Dr. Nunez, Last dialyzed on [...] cap(s), Refills(s) 0, Pharmacy: [facility]/pharmacy #[id number], 178, cm, 07/09/22 17:32:00 EDT, Height/Length Dosing, [...] 0, Thyro (more content not included)... Normal [facility] Comment on above: Result Comment: Elec tronically Signed By: Sarah Torres NP\.br\Date and Time Signed: 07/17/22 18:08 EDT\.br\Electronically Co-Signed By: Vane Miller MD\.br\Date and Time Co-Signed: 07/18/22 13:58 EDT Progress Note-Physician Patient: SETH MURPHY Age: 66 years Sex: Male : 1955 Associated Diagnoses: None Author: Vane Miller MD Interval History 66-year-old gentleman with end-stage kidney disease on hemodialysis Saturday at [facility] (follows with Dr. Nunez, Last dialyzed on [...] Humalog Kwi (more content not included)... Normal [facility] Comment on above: Result Comment: Elec [...] artery disease (I25.10: Atherosclerotic heart disease of [place] coronary artery without angina pectoris) -Aspirin, atorvastatin, [...] stage renal disease) On HD M/W/F at [facility] -Consult nephro -appreciated -- typically takes midodrine [...] deep vein thrombosis (DVT) prophylaxis (Z79.899: Other detention (current) drug therapy) -Heparin sq with early ambulation -Plan discussed w/ patient, nursing staff and CRM. This report was transcribed using voice recognition software. Every effort was made to ensure accuracy, however, inadvertently computerized loss prevention coordinator mistakes may be present. Subjective Pt seen [...] Lvl: 4. (more content not included)... Normal [facility] Comment on above: Result Comment: Elec tronically Signed By: Vijaya SANDOVAL\.br\Date and Time Signed: 07/17/22 11:34 EDT\.br\Electronically Co-Signed By: Pedro ARAUZ MD\.br\Date and Time Co-Signed: 07/18/22 08:23 EDT Vanco Troughon 07-18-2022 VANCOMYCIN 19 microgram/mL Normal 10-20 [facility] Comment on above: Order Comment: Pleas e draw one hour prior to next dose at on . Thank you. Performed By: #### 1 4877028, 7357419, 1492322, 6344314 #### [facility] [address] [place] [address] eGFRon 07-18-2022 GFR/1.73 sq M.predicted among non-blacks MDRD (S/P/Bld) [Vol rate/Area] 5 mL/min/1.73 m2 Low >=59 [facility] Comment on above: Order Comment: Order added by Discern Expert. Result Comment: Ditcher jm kidney disease could be indicated at eGFR's of less than 60 mL/min/1.73m2. Kidney failure is indicated at less than 15 mL/min/1.73m2. Performed By: #### 1 8180238, 3887987, 3924858, 5681077 #### [facility] [address] [place] [address] BMPon 07-17-2022 Creatinine [Mass/Vol] 8.0 mg/dL Abnormal 0.5-1.3 [facility] Comment on above: Result Comment: Crit ical Result verified by repeat analysis\Critical Result S_CREA:8.00 Called to SILVIO ARZOLA AT 3S by MARC ROSALES And Read Back For Confirmation at: 07/17/2022 09:09:10\Result S_CREA:8.00 Called to SILVIO ARZOLA AT 3S by MARC ROSALSE And Read Back For Confirmation at: 07/17/2022 09:09:10 Performed By: #### 2 226605, [id number] ####[facility] [address] [place] [address] Urea nitrogen [Mass/Vol] 23 mg/dL High 5-21 [facility] Comment on above: Performed By: #### 2 791723, 99721302 ####[facility] [address] [place] [address] Urea nitrogen/Creatinine [Mass ratio] 3 No Units Low 10-20 [facility] Comment on above: Performed By: #### 2 402737, 15577522 ####[facility] [address] [place] [address] Anion gap [Moles/Vol] 14 mmol/L Normal 6-16 [facility] Comment on above: Performed By: #### 2 859193, 29722326 ####[facility] [address] [place] [address] Calcium [Mass/Vol] 7.8 mg/dL Low 8.9-11.1 [facility] Comment on above: Performed By: #### 2 965609, 03855887 ####[facility] [address] [place] [address] Chloride [Moles/Vol] 100 mmol/L Low 101-111 [facility] Comment on above: Performed By: #### 2 621253, 61631402 ####[facility] [address] [place] [address] CO2 [Moles/Vol] 27 mmol/L Normal 21-31 [facility] Comment on above: Performed By: #### 2 974534, 79700225 ####[facility] [address] [place] [address] Glucose [Mass/Vol] 195 mg/dL Normal 55-199 [facility] Comment on above: Result Comment: If t his glucose result represents a fasting glucose, interpretation should refer to the following reference range: 55-99 mg/dL Performed By: #### 2 368528, 84251611 ####[facility] [address] [place] [address] Potassium [Moles/Vol] 4.1 mmol/L Normal 3.5-5.3 [facility] Comment on above: Performed By: #### 2 903556, 44321259 ####[facility] [address] [place] [address] Sodium [Moles/Vol] 137 mmol/L Normal 135-145 [facility] Comment on above: Performed By: #### 2 180739, 01761285 ####[facility] [address] [place] [address] Capillary Glucose POCon 06-0 Glucose [Mass/Vol] 243 mg/dL High 55-99 [facility] Comment on above: Result Comment: Ambrocio ELIAS Performed By: #### 1 6204415, 1162493, 5679741, 8068276 #### [facility] [address] [place] [address] Glucose [Mass/Vol] 327 mg/dL High 55-99 [facility] Comment on above: Result Comment: Ambrocio ELIAS Performed By: #### 2 29875574 ####[facility] [address] [place] [address] Glucose [Mass/Vol] 290 mg/dL High 55-99 [facility] Comment on above: Result Comment: Ambrocio ELIAS Performed By: #### 2 66703158 ####[facility] [address] [place] [address] Glucose [Mass/Vol] 188 mg/dL High 55-99 [facility] Comment on above: Result Comment: Ambrocio vargas RN/MD Performed By: #### 2 49311656 #### [facility] [address] [place] [address] Consent for Anesthesiaon Consent for Anesthesia [id number]#1.00CD:127 Normal [facility] H&P Updateon 07-17-2022 H&P Update [id number]#1.00CD:127 Normal [facility] IntraOperative Documentson 0 07-17-2022 IntraOperative Documents [id number]#1.00CD:127 [facility] Main OR Intraoperative Recor don 07-17-2022 Main OR Intraoperative Record IntraOp Document Type FT Summary Primary Physician: Dorian FISH, Greg Lopez Finalized Date/Time: 07/17/22 11:22:21 Pt. Name: KATHERINESETH/Sex: 1955 Male Med Rec #: [id number] Physician: Fuentes Rodriguez MD Financial #: [id number] Pt. Type: I Room/Bed: [place] [address] Admit/Disch: 07/12/22 14:01:25 - Institution: Case Times [...] Dorian FISH, Greg Acosta RN, CNOR, Annie Araogn Role Performed EBENEZER Surgeon - Primary UNDERWATER PHOTOGRAPHER Time In 07/16/22 12:24:00 07/16/22 12:58:00 07/16/22 12:24:00 Time Out 07/16/22 13:30:00 07/16/22 13:11:00 07/16/22 13:30:00 Procedure AV FISTULA AV FISTULA AV FISTULA EXCISION(Left) EXCISION(Left) EXCISION(Left) Comments dr feliz supervising Last Modified By: Jesus RN, Delilah Lee RN, Delilah Lee RN, Delilah Roman 07/16/22 13:30:02 07/16/22 13:30:02 07/16/22 13:30:02 Entry 4 Entry 5 Entry 6 Case Attendee Jesus TORREZ, Cari Mcintosh Ii, CST, Julie A Role Performed Land Acquisition Manager - Primary Land Acquisition Manager - Primary Scrub - Primary Time In 07/16/22 12:24:00 07/16/22 12:24:00 07/16/22 12:24:00 Time Out 07/16/22 13:30:00 07/16/22 13:30:00 07/16/22 13:30:00 Procedure AV FISTULA AV FISTULA AV FISTULA EXCISION(Left) EXCISION(Left) EXCISION(Left) Comments preceptor orientation preceptor Last Modified By: Jesus RN, Delilah Lee RN, Delilah Lee RN, Delilah Roman 07/16/22 13:30:02 07/16/22 13:30:02 07/16/22 13:30:02 Entry [...] Trevor SOL, Given Participants Dorian Sarabia MD, Greg Lopez, Karla RN, CNOR, Annie Milian, Jesus TORREZ, Pedro Mims Alfons Ii F, Tasia VERDIN, Forrest Garcia Laura C Time Out Complete [...] FISTUAL DEBRIDEMENT Primary Procedure Yes Primary Surgeon Dorian FISH, Greg Lopez Start 07/16/22 12:59:00 Stop 07/16/22 13:20:00 Anesthesia [...] and tissue Entry 1 Skin Integrity Intact, [place], Warm, and Skin Abnormality No Dry Outcomes Met? Yes Last Modified By: Delilah Lee RN (more content not included)... Normal [facility] Monitor Recordon 07-17-2022 Monitor Record [id number]#1.00CD:127 [facility] Monitor Record [id number]#1.00CD:127 [facility] Operative Reporton Operative Report SURGERY DATE: [...] dressing around the sutures twice a day. Joana Zheng Dictated: 07/16/2022 [id number] Transcribed: 07/16/2022 [facility] Comment on above: Result Comment: Elec [...] ( From PACU to floor ). Normal [facility] Comment on above: Result Comment: Elec tronically Signed By: Gino Feliz Jr, DO\.br\Date and Time Signed: 07/17/22 17:48 EDT Progress Note-Physician Patient: SETH MURPHY Age: 66 years Sex: Male : 1955 Associated Diagnoses: None Author: Karla Chaves, Alfredo S Subjective s/p Elliptical incision removing all the infected [...] segment elevation myocardial infarction / SNOMED CT 9093475180 / Confirmed Acute systolic heart failure / SNOMED CT 3544897288 / Confirmed At risk for falls / SNOMED CT 511613521 / Possible Problem added when Risk for Falls Careplan was initiated. Coronary arteriosclerosis / SNOMED CT 41121365 / Confirmed Coronary artery disease / SNOMED CT 43610951 / Confirmed MRSA (methicillin resistant staph aureus) culture positive / SNOMED CT 7540888472 / Confirmed MRSA in lt arm wound 07/12/2022 Diabetes mellitus / SNOMED CT 107770523 / Confirmed Diabetes / SNOMED CT 615312941 / Confirmed Dyspnea / SNOMED CT 293609146 / Confirmed Dysuria / SNOMED CT 52825676 / Confirmed Edema of lower extremity / SNOMED CT 680092423 / Confirmed Electrocardiogram abnormal / SNOMED CT 2308327346 / Confirmed ESRD (end stage renal disease) on dialysis / SNOMED CT 204474630 / Confirmed Essential hypertension / SNOMED CT 74518693 / Confirmed Fatigue / SNOMED CT 241656029 / Confirmed Hyperlipidemia / SNOMED CT 83520677 / Confirmed Hypertension / SNOMED CT 1799677349 / Confirmed Hypothyroid / SNOMED CT 31651476 / Confirmed Impaired skin integrity / SNOMED CT 38859208 / Confirmed Problem added on documentation of skin impairments. Left ventricular hypertrophy / SNOMED CT 70496632 / Confirmed Neuropathy due to diabetes mellitus / SNOMED CT 0806970461 / Confirmed Pseudophakia / SNOMED CT 693019607 / Confirmed Apnea, sleep / SNOMED CT 487146453 / Confirmed Thrombophlebitis / SNOMED CT 183529621 / Confirmed Venous insufficiency of leg / SNOMED CT 306286880 / Confirmed Venous stasis ulcer of leg / SNOMED CT 7821612863 / Confirmed Objective General: Alert and oriented. [...] this can be given at HD. Normal [facility] Comment on above: Result Comment: Elec tronically Signed By: Alfredo Acosta M.D\Date and Time Signed: 07/17/22 14:03 EDT eGFRon 07-17-2022 GFR/1.73 sq M.predicted among non-blacks MDRD (S/P/Bld) [Vol rate/Area] 7 mL/min/1.73 m2 Low >=59 [facility] Comment on above: Order Comment: Order added by Discern Expert. Result Comment: Ditcher jm kidney disease could be indicated at eGFR's of less than 60 mL/min/1.73m2. Kidney failure is indicated at less than 15 mL/min/1.73m2. Performed By: #### 2 [id number], [id number] ####[facility] [address] [place] [address] BMPon 07-16-2022 Creatinine [Mass/Vol] 11.6 mg/dL Abnormal 0.5-1.3 [facility] Comment on above: Result Comment: Crit ical Result verified by previous result\Critical Result S_CREA:11.60 Called to SILVIO ARZOLA AT 3S by CATHY LERNER And Read Back For Confirmation at: 07/16/2022 11:03:55\Result S_CREA:11.60 Called to SILVIO ARZOLA AT 3S by CATHY LERNER And Read Back For Confirmation at: 07/16/2022 11:03:55 Performed By: #### 1 [id number], 9623507, 2396596, 5937749 #### [facility] [address] [place] [address] Anion gap [Moles/Vol] 17 mmol/L High 6-16 [facility] Comment on above: Performed By: #### 1 5110532, 8359077, 3766676, 9144268 #### [facility] [address] [place] [address] Calcium [Mass/Vol] 8.4 mg/dL Low 8.9-11.1 [facility] Comment on above: Performed By: #### 1 1134973, 3470108, 2627301, 4883296 #### [facility] [address] [place] [address] Chloride [Moles/Vol] 100 mmol/L Low 101-111 [facility] Comment on above: Performed By: #### 1 8784551, 7529071, 2596845, 3633958 #### [facility] [address] [place] [address] CO2 [Moles/Vol] 24 mmol/L Normal 21-31 [facility] Comment on above: Performed By: #### 1 9444210, 1960631, 6731460, 0622972 #### [facility] [address] [place] [address] Glucose [Mass/Vol] 293 mg/dL High 55-199 [facility] Comment on above: Result Comment: If t his glucose result represents a fasting glucose, interpretation should refer to the following reference range: 55-99 mg/dL Performed By: #### 1 5398052, 5170467, 3729205, 3438398 #### [facility] [address] [place] [address] Potassium [Moles/Vol] 4.0 mmol/L Normal 3.5-5.3 [facility] Comment on above: Performed By: #### 1 2307363, 4664841, 7603690, 1780944 #### [facility] [address] [place] [address] Sodium [Moles/Vol] 137 mmol/L Normal 135-145 [facility] Comment on above: Performed By: #### 1 2547231, 4638576, 2703774, 2213753 #### [facility] [address] [place] [address] Urea nitrogen [Mass/Vol] 47 mg/dL High 5-21 [facility] Comment on above: Performed By: #### 1 4081337, 1150414, 7095783, 0777443 #### [facility] [address] [place] [address] Urea nitrogen/Creatinine [Mass ratio] 4 No Units Low 10-20 [facility] Comment on above: Performed By: #### 1 2990828, 3703691, 3310670, 6240159 #### [facility] [address] [place] [address] Capillary Glucose POCon 06- Glucose [Mass/Vol] 207 mg/dL High 55-99 [facility] Comment on above: Result Comment: Ambrocio vargas RN/ Performed By: #### 1 5375608, 5202999, 2324810, 2079595 #### [facility] [address] [place] [address] Glucose [Mass/Vol] 167 mg/dL [facility] 55-99 [facility] Comment on above: Result Comment: Ambrocio ELIAS Performed By: #### 1 8324185, 1580408, 7950563, 8954791 #### [facility] [address] [place] [address] Glucose [Mass/Vol] 266 mg/dL [facility] 55-99 [facility] Comment on above: Result Comment: Ambrocio vargas RN/ Performed By: #### 2 678003, 91330082, 5817218 #### [facility] [address] [place] [address] Glucose [Mass/Vol] 309 mg/dL [address] Comment on above: Result Comment: Danielle joe Meter Performed By: #### 2 341252, 59683535, 1273172 #### [facility] [address] [place] [address] Consent for Procedure/Surger yon 07-16-2022 Consent for Procedure/Surgery [id number]#[id number]:127 Normal [facility] Electrocardiogram - 12 leado n 07-16-2022 Electrocardiogram - 12 lead [id number]#1.00CD:127 Normal [facility] Hct & Hgbon 07-16-2022 Hematocrit (Bld) [Volume fraction] 23.9 % Low 37.7-49.0 [facility] Comment on above: Performed By: #### 1 3708923, 7372791, 5083279, 5951125 #### [facility] [address] [place] [address] Hemoglobin (Bld) [Mass/Vol] 8.2 g/dL Low 13.5-17.5 [facility] Comment on above: Performed By: #### 1 9999883, 3119857, 9461854, 5377694 #### [facility] [address] [place] [address] Interdisciplinary Note - Paresh e Manageron 07-16-2022 Interdisciplinary Note - Conical Mixer CRM to room and patient is down in OR with Vascular Patient is here for an infection as an inpatient. Patient was diagnosed with LUE AVF infection and thrombosis Patient was accepted to [facility] and plan will be to DC there once medically ready Normal [facility] Comment on above: Result Comment: Elec tronically Signed By: Tia White\.br\Date and Time Signed: 07/16/22 12:44 EDT Main OR PACU I Recordon Main OR PACU I Record PACU Phase I Docum ent Type FT Summary Primary Physician: Dorian FISH, Greg Lopez Finalized Date/Time: 07/16/22 14:40:11 Pt. Name: SETH MURPHY/Sex: 1955 Male Med Rec #: [id number] Physician: Fuentes Rodriguez MD Financial #: [id number] Pt. Type: I Room/Bed: [place] [address] Admit/Disch: 07/12/22 14:01:25 - Institution: Case Times [...] By: Pina Goetz RN 07/16/22 14:40 Normal [facility] Monitor Recordon 07-16-2022 Monitor Record [id number]#1.00CD:127 Normal [facility] Monitor Record [id number]:127 Normal [facility] Monitor Record [id number]:127 Normal [facility] Monitor Record [id number]#1.00CD:127 Normal [facility] Progress Note - Pharmacyon 0 07-16-2022 [...] have any questions, please contact pharmacy at [phone]. Age: 66 Years Allergies: ALLERGIES Weight: Last [...] mg/dL High (07/15/22 21:01:00) POC Device SN: [id number] (07/15/22 21:01:00) POC User ID: [id number] (07/15/22 21:01:00) POC Username: CLEMENCIA BROWNING (07/15/22 21:01:00) Normal [facility] Progress Note-Nurseon 2022 Progress Note-Nurse [id number]#[id number]:127 Normal [facility] Progress Note-Physicianon Progress Note-Physician Patient: SETH MURPHY [...] segment elevation myocardial infarction / SNOMED CT 6481988929 / Confirmed Acute systolic heart failure / SNOMED CT 8051104315 / Confirmed At risk for falls / SNOMED CT 779607284 / Possible Problem added when Risk for Falls Careplan was initiated. Coronary arteriosclerosis / SNOMED CT 69533824 / Confirmed Coronary artery disease / SNOMED CT 00050321 / Confirmed MRSA (methicillin resistant staph aureus) culture positive / SNOMED CT 9999307997 / Confirmed MRSA in lt arm wound 07/12/2022 Diabetes mellitus / SNOMED CT 698617114 / Confirmed Diabetes / SNOMED CT 678202687 / Confirmed Dyspnea / SNOMED CT 021982503 / Confirmed Dysuria / SNOMED CT 90289013 / Confirmed Edema of lower extremity / SNOMED CT 817317529 / Confirmed Electrocardiogram abnormal / SNOMED CT 1523550890 / Confirmed ESRD (end stage renal disease) on dialysis / SNOMED CT 886857333 / Confirmed Essential hypertension / SNOMED CT 12986228 / Confirmed Fatigue / SNOMED CT 257042668 / Confirmed Hyperlipidemia / SNOMED CT 86635986 / Confirmed Hypertension / SNOMED CT 8501696569 / Confirmed Hypothyroid / SNOMED CT 18291185 / Confirmed Impaired skin integrity / SNOMED CT 22035694 / Confirmed Problem added on documentation of skin impairments. Left ventricular hypertrophy / SNOMED CT 50337844 / Confirmed Neuropathy due to diabetes mellitus / SNOMED CT 8331900836 / Confirmed Pseudophakia / SNOMED CT 583240792 / Confirmed Apnea, sleep / SNOMED CT 147976312 / Confirmed Thrombophlebitis / SNOMED CT 345715898 / Confirmed Venous insufficiency of leg / SNOMED CT 947871266 / Confirmed Venous stasis ulcer of leg / SNOMED CT 1813188974 / Confirmed Resolved: Anemia / SNOMED CT 574508732 Resolved: Congestive heart failure / SNOMED CT 32481795 Resolved: Hyperlipidemia / SNOMED CT 20287874 Resolved: Palpitations / SNOMED CT 361409919 Resolved: Thrombosis of superficial vein of lower limb / SNOMED CT 4370548017 Canceled: ESRD on dialysis / SNOMED CT 683020810 Histories Procedure history: Insertion of hemodialysis catheter (3759763310) on 07/02/2022 at 66 Years. Fistulogram with contrast (1104819791) on 03/15/2022 at 66 Years. Fluoroscopic fistulogram with contrast (2923704469) on 11/02/2021 at 65 Years. Fistulogram with contrast (9629579270) on 08/04/2020 at 64 Years. Removal of catheter (655419309) on 07/07/2020 at 64 Years. Comments: 07/07/2020 11:09 CYNTHIA Caballero RN, Ilene Larson removal of hemodialysis catheter TECHNICAL BUSINESS ANALYST (13259730) on 06/16/2020 at 64 Years. Comments: 06/16/2020 14:27 Lindy Sood RN TECHNICAL BUSINESS ANALYST of Left Fistula AV - Creation of arteriovenous fistula (348735738) on 03/31/2020 at 64 Years. AV fistula recirculation (901794500) on 08/06/2019 at 63 Years. Comments: 08/06/2019 14:34 EDT - Joy TORREZ, Lizy creation of av fistula of left arm. H/O: tracheostomy (095259282). Cholecystectomy (31588574). Abdominal hernia (984679370). Placement of stent in cardiac conduit x2 (0480420808). Social History Social & Psychosocial Habits Alcohol [...] adequate air exchange. Cardiovascular: Regular rhythm. Plan [place] [employer]esthesi[employer] (ASA) physical status classification: Class IV. Anesthetic Preoperative Plan: Anesthesia General. Normal [facility] Comment on above: Result Comment: Elec tronically Signed By: Tray Solis DO, Gino Larson\.br\Date and Time Signed: 07/16/22 14:49 EDT Progress [...] artery disease (I25.10: Atherosclerotic heart disease of [place] coronary artery without angina pectoris) -Aspirin, atorvastatin, [...] stage renal disease) On HD M/W/F at [facility] -Consult nephro -appreciated -- typically takes midodrine [...] deep vein thrombosis (DVT) prophylaxis (Z79.899: Other meterman (current) drug therapy) -Heparin sq with early ambulation -Plan discussed w/ patient, nursing staff and CRM. This report was transcribed using voice recognition software. Every effort was made to ensure accuracy, however, inadvertently computerized loss prevention coordinator mistakes may be present. Subjective Patient seen [...] (07/16/22 06:06:00) (more content not included)... Normal [facility] Comment on above: Result Comment: Elec tronically Signed By: Vijaya SANDOVAL\.br\Date and Time Signed: 07/16/22 11:35 EDT\.br\Electronically Co-Signed By: Pedro ARAUZ MD\.br\Date and Time Co-Signed: 07/16/22 12:52 EDT Progress Note-Physician Patient: SETH MURPHY Age: 66 years Sex: Male : 1955 Associated Diagnoses: None Author: Vane Miller MD Chief Complaint Interval History 66-year-old gentleman with end-stage kidney disease on hemodialysis Saturday at [facility] (follows with Dr. Nunez, Last dialyzed on [...] hypotensive today. His white count is 23. 6/07/03: Patient has no acute complaints today. Waiting [...] As Dire (more content not included)... Normal [facility] Comment on above: Result Comment: Elec tronically Signed By: Paul FISH, Vane\.br\Date and Time Signed: 07/16/22 12:12 EDT Vanco Troughon 07-16-2022 VANCOMYCIN 27 microgram/mL Abnormal 10-20 [facility] Comment on above: Result Comment: Crit ical Result verified by repeat analysis\Critical Result S_VANC_T:27.0 Called to SILVIO ARZOLA AT 3S by CATHY LERNER And Read Back For Confirmation at: 07/16/2022 07:34:50 Performed By: #### 1 4915687, 8418335, 3053589, 6399330 #### [facility] [address] [place] [address] eGFRon 07-16-2022 GFR/1.73 sq M.predicted among non-blacks MDRD (S/P/Bld) [Vol rate/Area] 4 mL/min/1.73 m2 Low >=59 [facility] Comment on above: Order Comment: Order Added by Discern Expert. Result Comment: Ditcher jm kidney disease could be indicated at eGFR's of less than 60 mL/min/1.73m2. Kidney failure is indicated at less than 15 mL/min/1.73m2. Performed By: #### 1 9001055, 7202400, 0347895, 6925764 #### [facility] [address] [place] [address] Auto Diffon 07-15-2022 Basophils/100 WBC (Bld) 1.2 % Normal 0.0-2.0 [facility] Comment on above: Order Comment: Order Added by Discern Expert. Performed By: #### 1 9715827, 6767810, 1794362, 9037839 #### [facility] [address] [place] [address] Basophils/Leukocytes Auto (Bld) [Pure # fraction] 0.1 E9/L Normal 0.0-0.2 [facility] Comment on above: Order Comment: Order Added by Discern Expert. Performed By: #### 1 8003473, 5941317, 1135045, 4952431 #### [facility] [address] [place] [address] Eosinophils/100 WBC (Bld) 3.4 % Normal 0.0-8.0 [facility] Comment on above: Order Comment: Order Added by Discern Expert. Performed By: #### 1 2957431, 4520910, 4370628, 9683595 #### [facility] [address] [place] [address] Eosinophils/Leukocytes Auto (Bld) [Pure # fraction] 0.2 E9/L Normal 0.0-0.5 [facility] Comment on above: Order Comment: Order Added by Discern Expert. Performed By: #### 1 2782428, 1564333, 2666503, 7851851 #### [facility] [address] [place] [address] Lymphocytes/100 WBC (Bld) 11.3 % Low 14.0-50.0 [facility] Comment on above: Order Comment: Order Added by Cayla Expert. Performed By: #### 1 0099326, 3981993, 8429998, 3351369 #### [facility] [address] [place] [address] Lymphocytes/Leukocytes Auto (Bld) [Pure # fraction] 0.6 E9/L Low 1.0-4.0 [facility] Comment on above: Order Comment: Order Added by Discern Expert. Performed By: #### 1 6721650, 6835223, 1164980, 5640914 #### [facility] [address] [place] [address] Monocytes/100 WBC (Bld) 16.4 % High 4.0-14.0 [facility] Comment on above: Order Comment: Order Added by Discern Expert. Performed By: #### 1 2646163, 2832240, 1943190, 5599628 #### [facility] [address] [place] [address] Monocytes/Leukocytes Auto (Bld) [Pure # fraction] 0.9 E9/L Normal 0.2-1.0 [facility] Comment on above: Order Comment: Order Added by Discern Expert. Performed By: #### 1 5062521, 3196322, 8688305, 5916417 #### [facility] [address] [place] [address] Neutrophils/100 WBC (Bld) 67.7 % Normal 36.0-75.0 [facility] Comment on above: Order Comment: Order Added by Discern Expert. Performed By: #### 1 5437754, 7785483, 5039321, 5608835 #### [facility] [address] [place] [address] Neutrophils/Leukocytes Auto (Bld) [Pure # fraction] 3.7 E9/L Normal 2.0-7.5 [facility] Comment on above: Order Comment: Order Added by Discern Expert. Performed By: #### 1 3857307, 1686253, 1214314, 5000106 #### [facility] [address] [place] [address] CBC w/ Auto Diffon 3 Erythrocyte distribution width (RBC) [Ratio] 16.7 % High 10.9-14.2 [facility] Comment on above: Performed By: #### 1 2753385, 5312392, 0146109, 0358447 #### [facility] [address] [place] [address] Hematocrit (Bld) [Volume fraction] 24.3 % Low 37.7-49.0 [facility] Comment on above: Performed By: #### 1 9880190, 4250188, 0593642, 9416385 #### [facility] [address] [place] [address] Hemoglobin (Bld) [Mass/Vol] 8.0 g/dL Low 13.5-17.5 [facility] Comment on above: Performed By: #### 1 6260261, 0709872, 2124638, 4430173 #### [facility] [address] [place] [address] MCH (RBC) [Entitic mass] 29.7 pg Normal 27.0-34.0 [facility] Comment on above: Performed By: #### 1 7415467, 6976863, 4055127, 3271058 #### [facility] [address] [place] [address] MCHC (RBC) [Mass/Vol] 32.9 g/dL Normal 31.4-36.0 [facility] Comment on above: Performed By: #### 1 2212817, 3667428, 5397018, 1468184 #### [facility] [address] [place] [address] MCV (RBC) [Entitic vol] 90.1 fL Normal 80.0-100.0 [facility] Comment on above: Performed By: #### 1 2433923, 7049529, 4360292, 8484447 #### [facility] [address] [place] [address] Platelet mean volume (Bld) [Entitic vol] 7.9 fL Normal 6.4-10.8 [facility] Comment on above: Performed By: #### 1 1346183, 8994489, 6376038, 7418207 #### [facility] [address] [place] [address] Platelets (Bld) [#/Vol] 219.0 E9/L Normal 150.0-500. 0 [facility] Comment on above: Performed By: #### 1 2912567, 4511219, 5554079, 9291430 #### [facility] [address] [place] [address] RBC (Bld) [#/Vol] 2.7 E12/L Low 4.3-5.9 [facility] Comment on above: Performed By: #### 1 9460059, 3377822, 8670683, 3936535 #### [facility] [address] [place] [address] WBC corrected for nucl RBC Auto (Bld) [#/Vol] 5.5 E9/L Normal 4.0-11.0 [facility] Comment on above: Performed By: #### 1 1379369, 8367703, 4511009, 0335906 #### [facility] [address] [place] [address] CMPon 07-15-2022 Creatinine [Mass/Vol] 10.0 mg/dL Abnormal 0.5-1.3 [facility] Comment on above: Result Comment: Crit ical Result S_CREA:10.00 Called to HIRO VALERIO AT 3S by CATHY LERNER And Read Back For Confirmation at: 07/15/2022 10:15:30\Result S_CREA:10.00 Called to HIRO VALERIO AT 3S by CATHY LERNER And Read Back For Confirmation at: 07/15/2022 10:15:30\ATTEMPTED TO CALL RESULT X2\Critical Result verified by previous result Performed By: #### 1 9316963, 4295232, 0024666, 7851853 #### [facility] [address] [place] [address] Albumin [Mass/Vol] 2.2 g/dL Low 3.3-5.0 [facility] Comment on above: Performed By: #### 1 4179632, 5112172, 2553012, 1232664 #### [facility] [address] [place] [address] Albumin/Globulin (S) [Mass conc ratio] 0.7 Low 1.1-2.2 [facility] Comment on above: Performed By: #### 1 6470852, 2486406, 2127915, 7401164 #### [facility] [address] [place] [address] ALP [Catalytic activity/Vol] 39 Int._Unit/L Normal 21-98 [facility] Comment on above: Performed By: #### 1 6881984, 8878065, 6852073, 0700176 #### [facility] [address] [place] [address] ALT No additional P-5'-P [Catalytic activity/Vol] 17 Int._Unit/L Normal 6-46 [facility] Comment on above: Performed By: #### 1 5895650, 6385130, 3712509, 2380074 #### [facility] [address] [place] [address] Anion gap [Moles/Vol] 15 mmol/L Normal 6-16 [facility] Comment on above: Performed By: #### 1 0564765, 0539495, 8452187, 4096580 #### [facility] [address] [place] [address] AST [Catalytic activity/Vol] 47 Int._Unit/L High 5-43 [facility] Comment on above: Performed By: #### 1 7055905, 0285614, 3969215, 7731257 #### [facility] [address] [place] [address] Bilirubin [Mass/Vol] 0.8 mg/dL Normal 0.0-1.1 [facility] Comment on above: Performed By: #### 1 0464484, 6841198, 6339415, 6628822 #### [facility] [address] [place] [address] Calcium [Mass/Vol] 8.6 mg/dL Low 8.9-11.1 [facility] Comment on above: Performed By: #### 1 1025223, 6695086, 2846554, 3583988 #### [facility] [address] [place] [address] Chloride [Moles/Vol] 100 mmol/L Low 101-111 [facility] Comment on above: Performed By: #### 1 0499952, 0056823, 0767801, 1508578 #### [facility] [address] [place] [address] CO2 [Moles/Vol] 24 mmol/L Normal 21-31 [facility] Comment on above: Performed By: #### 1 9311983, 9941118, 4210466, 7943507 #### [facility] [address] [place] [address] Globulin (S) [Mass/Vol] 3.2 g/dL Normal 1.4-4.0 [facility] Comment on above: Performed By: #### 1 3031864, 0316341, 0336588, 9646640 #### [facility] [address] [place] [address] Glucose [Mass/Vol] 202 mg/dL High 55-199 [facility] Comment on above: Result Comment: If t his glucose result represents a fasting glucose, interpretation should refer to the following reference range: 55-99 mg/dL Performed By: #### 1 3225064, 3052427, 6465897, 4581417 #### [facility] [address] [place] [address] Potassium [Moles/Vol] 3.7 mmol/L Normal 3.5-5.3 [facility] Comment on above: Performed By: #### 1 4243470, 7542225, 8562762, 1545499 #### [facility] [address] [place] [address] Protein [Mass/Vol] 5.4 g/dL Low 6.0-7.8 [facility] Comment on above: Performed By: #### 1 2550854, 3397684, 0975007, 7538326 #### [facility] [address] [place] [address] Sodium [Moles/Vol] 135 mmol/L Normal 135-145 [facility] Comment on above: Performed By: #### 1 4572401, 1860549, 7123362, 3368996 #### [facility] [address] [place] [address] Urea nitrogen [Mass/Vol] 42 mg/dL High 5-21 [facility] Comment on above: Performed By: #### 1 6505413, 4307437, 5277463, 7720108 #### [facility] [address] [place] [address] Urea nitrogen/Creatinine [Mass ratio] 4 No Units Low 10-20 [facility] Comment on above: Performed By: #### 1 6300530, 6682347, 7602675, 4396016 #### [facility] [address] [place] [address] Capillary Glucose POCon 06-0 Glucose [Mass/Vol] 323 mg/dL High 55-99 [facility] Comment on above: Result Comment: Ambrocio ELAIS Performed By: #### 2 86727365 ####[facility] [address] [place] [address] Glucose [Mass/Vol] 297 mg/dL High 55-99 [facility] Comment on above: Performed By: #### 2 23251258 ####[facility] [address] [place] [address] Glucose [Mass/Vol] 244 mg/dL High 55-99 [facility] Comment on above: Result Comment: Ambrocio ELIAS Performed By: #### 2 83895590 ####[facility] [address] [place] [address] Glucose [Mass/Vol] 317 mg/dL High 55-99 [facility] Comment on above: Result Comment: Ambrocio ELIAS Performed By: #### 2 35956839 ####[facility] [address] [place] [address] Glucose [Mass/Vol] 171 mg/dL High 55-99 [facility] Comment on above: Result Comment: Ambrocio vargsa RN/MD Performed By: #### 1 5504625, 1012272, 7791891, 9613679 #### [facility] [address] [place] [address] Hep Bs Agon 07-15-2022 HBV surface Ag IA Ql Negative Invalid Interpretation Code Negative [facility] Comment on above: Result Comment: Perf ormed at: [facility] [address] [id number] PhD Jany Aparicio Performed By: #### 1 2852931, 9858933, 5763757, 7443762 #### [facility] [address] [place] [address] Interdisciplinary Note - Paresh e Manageron 07-15-2022 Interdisciplinary Note - Conical Mixer Pt is aware [facility] has accepted. Pt will see Vascular and ID this week. Ant dc TBD. 3MN was met today. CRM to follow. Normal [facility] Comment on above: Result Comment: Elec tronically Signed By: Sarah Tena\.br\Date and Time Signed: 07/15/22 11:25 EDT Monitor Recordon 07-15-2022 Monitor Record [id number]#[id number]:127 Normal [facility] Monitor Record [id number]#1.00CD:127 Normal [facility] Monitor Record [id number]#[id number]:127 Normal [facility] Monitor Record [id number]#[id number]:127 Normal [facility] eGFRon 07-15-2022 GFR/1.73 sq M.predicted among non-blacks MDRD (S/P/Bld) [Vol rate/Area] 5 mL/min/1.73 m2 Low >=59 [facility] Comment on above: Order Comment: Order Added by Discern Expert. Result Comment: Ditcher jm kidney disease could be indicated at eGFR's of less than 60 mL/min/1.73m2. Kidney failure is indicated at less than 15 mL/min/1.73m2. Performed By: #### 1 0550391, 4615865, 3638061, 6730148 #### [facility] [address] [place] [address] 97919 Auto Diffon 07-14-2022 Basophils/100 WBC (Bld) 0.7 % Normal 0.0-2.0 [facility] Comment on above: Order Comment: Order Added by Discern Expert. Performed By: #### 1 2804926, 9260679, 0618526, 9742632 #### [facility] [address] [place] [address] 40544 Basophils/Leukocytes Auto (Bld) [Pure # fraction] 0.1 E9/L Normal 0.0-0.2 [facility] Comment on above: Order Comment: Order Added by Discern Expert. Performed By: #### 1 1346121, 4781087, 1994908, 6011754 #### [facility] [address] [place] [address] 19316 Eosinophils/100 WBC (Bld) 1.1 % Normal 0.0-8.0 [facility] Comment on above: Order Comment: Order Added by Discern Expert. Performed By: #### 1 9929189, 1368840, 6120461, 6477442 #### [facility] [address] [place] [address] 94717 Eosinophils/Leukocytes Auto (Bld) [Pure # fraction] 0.1 E9/L Normal 0.0-0.5 [facility] Comment on above: Order Comment: Order Added by Discern Expert. Performed By: #### 1 6554690, 9241026, 0602849, 9947356 #### [facility] [address] [place] [address] 44671 Lymphocytes/100 WBC (Bld) 1.7 % Low 14.0-50.0 [facility] Comment on above: Order Comment: Order Added by Discern Expert. Performed By: #### 1 7335216, 5363250, 5168371, 4628668 #### [facility] [address] [place] [address] 98487 Lymphocytes/Leukocytes Auto (Bld) [Pure # fraction] 0.2 E9/L Low 1.0-4.0 [facility] Comment on above: Order Comment: Order Added by Discern Expert. Performed By: #### 1 5894909, 0318895, 3942702, 2676731 #### [facility] [address] [place] [address] Monocytes/100 WBC (Bld) 6.3 % Normal 4.0-14.0 [facility] Comment on above: Order Comment: Order Added by Discern Expert. Performed By: #### 1 8248360, 8667325, 2719067, 9915893 #### [facility] [address] [place] [address] Monocytes/Leukocytes Auto (Bld) [Pure # fraction] 0.7 E9/L Normal 0.2-1.0 [facility] Comment on above: Order Comment: Order Added by Discern Expert. Performed By: #### 1 0672376, 4246600, 9647691, 8271457 #### [facility] [address] [place] [address] Neutrophils/100 WBC (Bld) 90.2 % High 36.0-75.0 [facility] Comment on above: Order Comment: Order Added by Cayla Expert. Performed By: #### 1 1939947, 1759165, 6344496, 8000734 #### [facility] [address] [place] [address] Neutrophils/Leukocytes Auto (Bld) [Pure # fraction] 9.9 E9/L High 2.0-7.5 [facility] Comment on above: Order Comment: Order Added by Cayla Expert. Performed By: #### 1 5925397, 4850944, 8813702, 7867057 #### [facility] [address] [place] [address] 10404 BMPon 07-14-2022 Creatinine [Mass/Vol] 7.2 mg/dL High 0.5-1.3 [facility] Comment on above: Performed By: #### 1 4018058, 0388088, 1637231, 8556775 #### [facility] [address] [place] [address] Anion gap [Moles/Vol] 15 mmol/L Normal 6-16 [facility] Comment on above: Performed By: #### 1 4939732, 6417073, 0544680, 7765015 #### [facility] [address] [place] [address] Calcium [Mass/Vol] 8.2 mg/dL Low 8.9-11.1 [facility] Comment on above: Performed By: #### 1 1429856, 5814926, 7402159, 3569664 #### [facility] [address] [place] [address] Chloride [Moles/Vol] 98 mmol/L Low 101-111 [facility] Comment on above: Performed By: #### 1 7971985, 1123653, 7174324, 7629669 #### [facility] [address] [facility] [place] [address] CO2 [Moles/Vol] 24 mmol/L Normal 21-31 [facility] Comment on above: Performed By: #### 1 1236862, 1499693, 2836468, 4024069 #### [facility] [address] [facility] [address] Glucose [Mass/Vol] 190 mg/dL Normal 55-199 [facility] Comment on above: Result Comment: If t his glucose result represents a fasting glucose, interpretation should refer to the following reference range: 55-99 mg/dL Performed By: #### 1 7601587, 1494354, 3430525, 7534908 #### [facility] [address] [place] [address] Potassium [Moles/Vol] 3.7 mmol/L Normal 3.5-5.3 [facility] Comment on above: Performed By: #### 1 2062041, 1575830, 5416136, 8322483 #### [facility] [address] [facility] [place] [address] Sodium [Moles/Vol] 133 mmol/L Low 135-145 [facility] Comment on above: Performed By: #### 1 4981454, 2573727, 7033567, 6428464 #### [facility] [address] [place] [address] Urea nitrogen [Mass/Vol] 26 mg/dL High 5-21 [facility] Comment on above: Performed By: #### 1 6905220, 0335808, 6984163, 3222055 #### [facility] [address] [place] [address] Urea nitrogen/Creatinine [Mass ratio] 4 No Units Low 10-20 [facility] Comment on above: Performed By: #### 1 6716234, 5132514, 4675074, 9379446 #### [facility] [address] [place] [address] 59893 CBC w/ Auto Diffon 3 Erythrocyte distribution width (RBC) [Ratio] 17.1 % High 10.9-14.2 [facility] Comment on above: Performed By: #### 1 0918521, 4902050, 1010615, 6472280 #### [facility] [address] [place] [address] Hematocrit (Bld) [Volume fraction] 25.5 % Low 37.7-49.0 [facility] Comment on above: Performed By: #### 1 5158188, 8985351, 5847192, 5579223 #### [facility] [address] [place] [address] Hemoglobin (Bld) [Mass/Vol] 8.5 g/dL Low 13.5-17.5 [facility] Comment on above: Performed By: #### 1 5778664, 5876965, 6364093, 9203742 #### [facility] [address] [place] [address] 33746 MCH (RBC) [Entitic mass] 29.6 pg Normal 27.0-34.0 [facility] Comment on above: Performed By: #### 1 8861875, 5028037, 7794168, 6754920 #### [facility] [address] [place] [address] MCHC (RBC) [Mass/Vol] 33.2 g/dL Normal 31.4-36.0 [facility] Comment on above: Performed By: #### 1 5628695, 5590672, 4848924, 1829349 #### [facility] [address] [place] [address] MCV (RBC) [Entitic vol] 89.4 fL Normal 80.0-100.0 [facility] Comment on above: Performed By: #### 1 1629893, 5884559, 5025912, 3203929 #### [facility] [address] [place] [address] 02521 Platelet mean volume (Bld) [Entitic vol] 7.6 fL Normal 6.4-10.8 [facility] Comment on above: Performed By: #### 1 2705344, 2056697, 3406699, 5118882 #### [facility] [address] [place] [address] 98370 Platelets (Bld) [#/Vol] 219.0 E9/L Normal 150.0-500. 0 [facility] Comment on above: Performed By: #### 1 8267008, 7966555, 8686733, 2744819 #### [facility] [address] [place] [address] 89420 RBC (Bld) [#/Vol] 2.8 E12/L Low 4.3-5.9 [facility] Comment on above: Performed By: #### 1 5716093, 5098723, 2897714, 5025308 #### [facility] [address] [place] [address] 77844 WBC corrected for nucl RBC Auto (Bld) [#/Vol] 11.0 E9/L Normal 4.0-11.0 [facility] Comment on above: Performed By: #### 1 4645334, 7071743, 7222479, 4928806 #### [facility] [address] [place] [address] 85271 Capillary Glucose POCon - Glucose [Mass/Vol] 233 mg/dL High [address] Comment on above: Performed By: #### 2 70607994 ####[facility] [address] [place] [address] Glucose [Mass/Vol] 144 mg/dL High -[address] [place] [address] Comment on above: Result Comment: Ambrocio ELIAS Performed By: #### 1 3678266, 6830853, 5678226, 5633724 #### [facility] [address] [place] [address] Glucose [Mass/Vol] 202 mg/dL High [address] [place] [address] Comment on above: Result Comment: Ambrocio ELIAS Performed By: #### 2 111561, 44014149, 4844396 #### [facility] [address] [place] [address] Glucose [Mass/Vol] 180 mg/dL [address] Comment on above: Result Comment: Ambrocio ELIAS Performed By: #### 1 3829204, 6691787, 6470027, 0108547 #### [facility] [address] [place] [address] Lactic Acidon 07-14-2022 Lactate [Mass/Vol] 1.1 mmol/L Normal 0.5-2.2 [facility] Comment on above: Performed By: #### 1 5217477, 4288495, 9417329, 7419564 #### [facility] [address] [place] [address] Monitor Recordon 07-14-2022 Monitor Record [id number]#1.00CD:127 Normal [facility] Monitor Record [id number]#1.00CD:127 Normal [facility] Monitor Record [id number]#1.00CD:127 Normal [facility] Progress Note-Physicianon Progress Note-Physician Assessment/Plan 1. Sepsis [...] artery disease (I25.10: Atherosclerotic heart disease of [place] coronary artery without angina pectoris) -Aspirin, atorvastatin, [...] stage renal disease) On HD M/W/F at [facility] -Consult nephro - pending -BP is soft today - typically takes midodrine 5mg on HD only for now will increase to daily dosing until infection improves -Discussed labs w/ HD nurse Margarito who will review labs with Dr. Walekr for HD options today 9. Hypothyroidism (E03.9: [...] deep vein thrombosis (DVT) prophylaxis (Z79.899: Other detention (current) drug therapy) -Heparin sq with early ambulation -Plan discussed w/ patient, nursing staff and CRM. This report was transcribed using voice recognition software. Every effort was made to ensure accuracy, however, inadvertently computerized loss prevention coordinator mistakes may be present. Subjective Pt seen [...] deformity, no chest wall tenderness Lungs: CTA snaders Cardio: Normal rate, apical is regular, no [...] approp. affect, Lab Results WBC: 11 E9/L (07/14/22 05:51:00) RBC: 2.8 E12/L Low (07/14/22 05:51:00) HGB: 8.5 gm/dL Low (07/14/22 05:51:00) Hct: 25.5 % Low (07/14/22 05:51:00) MCV: 89.4 fL (07/14/22 05:51:00) MCH: 29.6 pg (0 (more content not included)... Normal [facility] Comment on above: Result Comment: Elec tronically Signed By: Vijaya SANDOVAL\.br\Date and Time Signed: 07/14/22 13:12 EDT\.br\Electronically Co-Signed By: Fuentes Rodriguez MD\.br\Date and Time Co-Signed: 07/14/22 14:51 EDT eGFRon 07-14-2022 GFR/1.73 sq M.predicted among non-blacks MDRD (S/P/Bld) [Vol rate/Area] 8 mL/min/1.73 m2 Low >=59 [facility] Comment on above: Order Comment: Order added by Discern Expert. Result Comment: Ditcher jm kidney disease could be indicated at eGFR's of less than 60 mL/min/1.73m2. Kidney failure is indicated at less than 15 mL/min/1.73m2. Performed By: #### 1 6640649, 1423046, 4785803, 5664647 #### [facility] [address] [place] [address] BMPon 07-13-2022 Creatinine [Mass/Vol] 9.3 mg/dL Abnormal 0.5-1.3 [facility] Comment on above: Result Comment: Crit ical Result verified by repeat analysis\Critical Result S_CREA:9.30 Called to MARYURI MCKEON AT 3S by NEDA MACHUCA And Read Back For Confirmation at: 07/13/2022 06:50:42\Result S_CREA:9.30 Called to MARYURI MCKEON AT 3S by NEDA MACHUCA And Read Back For Confirmation at: 07/13/2022 06:50:42 Performed By: #### 2 064365, 92152517, 2543951 ####[facility] [address] [place] [address] Anion gap [Moles/Vol] 16 mmol/L Normal 6-16 [facility] Comment on above: Performed By: #### 2 850312, 23080476, 7580277 ####[facility] [address] [place] [address] Calcium [Mass/Vol] 8.9 mg/dL Normal 8.9-11.1 [facility] Comment on above: Performed By: #### 2 495459, 27598031, 2425003 ####[facility] [address] [place] [address] Chloride [Moles/Vol] 101 mmol/L Normal 101-111 [facility] Comment on above: Performed By: #### 2 610906, 76829198, 6267449 ####[facility] [address] [place] [address] CO2 [Moles/Vol] 23 mmol/L Normal 21-31 [facility] Comment on above: Performed By: #### 2 537559, 81279763, 1283125 ####[facility] [address] [place] [address] Glucose [Mass/Vol] 266 mg/dL High 55-199 [facility] Comment on above: Result Comment: If t his glucose result represents a fasting glucose, interpretation should refer to the following reference range: 55-99 mg/dL Performed By: #### 2 874335, 28758223, 9640437 ####[facility] [address] [place] [address] Potassium [Moles/Vol] 3.5 mmol/L Normal 3.5-5.3 [facility] Comment on above: Performed By: #### 2 642726, 58239787, 1936333 ####[facility] [address] [place] [address] Sodium [Moles/Vol] 136 mmol/L Normal 135-145 [facility] Comment on above: Performed By: #### 2 179609, 92067547, 7670232 ####[facility] [address] [place] [address] Urea nitrogen [Mass/Vol] 31 mg/dL High 5-21 [facility] Comment on above: Performed By: #### 2 379878, 14250214, 4264146 ####[facility] [address] [place] [address] Urea nitrogen/Creatinine [Mass ratio] 3 No Units Low 10-20 [facility] Comment on above: Performed By: #### 2 965601, 13258960, 6138743 ####[facility] [address] [place] [address] CRPon 07-13-2022 CRP [Mass/Vol] 8.9 mg/dL High <=1.9 [facility] Comment on above: Performed By: #### 1 3638336, 6643347, 5476283, 9656744 #### [facility] [address] [place] [address] Capillary Glucose POCon 06-0 Glucose [Mass/Vol] 256 mg/dL High 55-99 [facility] Comment on above: Result Comment: Ambrocio vargas RN/ Performed By: #### 2 143102, 64760846, 0197224 #### [facility] [address] [place] [address] Glucose [Mass/Vol] 268 mg/dL High 55-99 [facility] Comment on above: Performed By: #### 1 3653412, 3319227, 5169066, 9170872 #### [facility] [address] [place] [address] Glucose [Mass/Vol] 247 mg/dL High 55-99 [facility] Comment on above: Result Comment: Ambrocio vargas RN/ Performed By: #### 2 08810073 #### [facility] [address] [place] [address] Glucose [Mass/Vol] 279 mg/dL High 55-99 [facility] Comment on above: Result Comment: Ambrocio ELIAS Performed By: #### 2 05952971 ####[facility] [address] [place] [address] Consultation Noteon 07-14-19 Consultation Note Patient: LALY MURPHY Age: 66 years Sex: Male : 1955 Associated Diagnoses: None Author: Cristino Walker MD Chief Complaint 07/12/2022 14:28 EDT r/o infection of fistula 07/12/2022 13:24 EDT Inpatient F/U Interval History 66-year-old gentleman with end-stage kidney disease on hemodialysis Saturday at [facility] (follows with Dr. Nunez, Last dialyzed on [...] Daily, Refills(s) (more content not included)... Normal [facility] Comment on above: Result Comment: Elec tronically Signed By: Aaron FISH, Cristino\.br\Date and Time Signed: 07/13/22 14:44 EDT Consultation Note Patient: LALY MURPHY Age: 66 years Sex: Male : 1955 Associated Diagnoses: None Author: Alfredo Acosta M.D Chief Complaint 07/12/2022 14:28 EDT r/o infection of fistula 07/12/2022 13:24 EDT Inpatient F/U History of Present Illness -Patient presented to [facility] as a direct admit at the request [...] segment elevation myocardial infarction / SNOMED CT 3485756232 / Confirmed Acute systolic heart failure / SNOMED CT 8551239554 / Confirmed At risk for falls / SNOMED CT 980815785 / Possible Problem added when Risk for Falls Careplan was initiated. Coronary arteriosclerosis / SNOMED CT 09278895 / Confirmed Coronary artery disease / SNOMED CT 54874596 / Confirmed Diabetes mellitus / SNOMED CT 414322073 / Confirmed Diabetes / SNOMED CT 394969179 / Confirmed Dyspnea / SNOMED CT 365948992 / Confirmed Dysuria / SNOMED CT 81657975 / Confirmed Edema of lower extremity / SNOMED CT 775808595 / Confirmed Electrocardiogram abnormal / SNOMED CT 4190266426 / Confirmed ESRD (end stage renal disease) on dialysis / SNOMED CT 326102761 / Confirmed Essential hypertension / SNOMED CT 23496450 / Confirmed Fatigue / SNOMED CT 841464882 / Confirmed Hyperlipidemia / SNOMED CT 55564750 / Confirmed Hypertension / SNOMED CT 2209460543 / Confirmed Hypothyroid / SNOMED CT 27671109 / Confirmed Impaired skin integrity / SNOMED CT 93310917 / Confirmed Problem added on documentation of skin impairments. Left ventricular hypertrophy / SNOMED CT 98732886 / Confirmed Neuropathy due to diabetes mellitus / SNOMED CT 8965214755 / Confirmed Pseudophakia / SNOMED CT 018863893 / Confirmed Apnea, sleep / SNOMED CT 427321206 / Confirmed Thrombophlebitis / SNOMED CT 184791274 / Confirmed Venous insufficiency of leg / SNOMED CT 077902038 / Confirmed Venous stasis ulcer of leg / SNOMED CT 3342239107 / Confirmed Histories Past Medical History: Resolved Anemia (025892983): Onset on 05/06/2018 at 62 years. Resolved. Congestive heart failure (24181611): Onset on 05/06/2018 at 62 years. Resolved. Hyperlipidemia (44772436): Onset on 05/06/2018 at 62 years. Resolved. Palpitations (054441568): Onset on 05/06/2018 at 62 years. Resolved. Thrombosis of superficial vein of lower limb (3111806033): Onset on 05/06/2018 at 62 years. Resolved. Family History: Diabetes mellitus type 2 Mother Heart failure Mother Primary malignant neoplasm of prostate Father Acute myocardial infarction Mother Hyperlipidemia Mother Procedure history: Insertion of hemodialysis catheter (1306525990) on 07/02/2022 at 66 Years. Fistulogram with contrast (2533212076) on 03/15/2022 at 66 Years. Fluoroscopic fistulogram with contrast (6511157285) on 11/02/2021 at 65 Years. Fistulogram with contrast (1933351293) on 08/04/2020 at 64 Years. Removal of catheter (232076921) on 07/07/2020 at 64 Years. Comments: 07/07/2020 11:09 EDT - Federico TORREZ, Ilene A removal of hemodialysis catheter TECHNICAL BUSINESS ANALYST (79010495) on 06/16/2020 at 64 Years. Comments: 06/16/2020 14:27 E (more content not included)... Normal [facility] Comment on above: Result Comment: Elec tronically Signed By: Alfredo Acosta M.D\.br\Date and Time Signed: 07/13/22 09:50 EDT Interdisciplinary Note - Paresh Fuenteson 07-13-2022 Interdisciplinary Note - Conical Mixer Pt is awake and alert in bed previously rounded with Nathalie CARRERA. Pt is aware of plan to stay in hospital until at least Saturday to see Vascular. Pt is from home with and she will transport at [place]. Pt is currentwith HD at [facility] on Sat, Sat, Sat at noon. Inpateint status reviewed, Medicare rights reviewed, form signed and original provided to pt. . PCP verified and insurance information reviewed and DME discussed. Contact information provided and white board updated. [facility] Comment on above: Result Comment: Belkis tronically Signed By: Obie TORREZ, Alaina\.br\Date and [...] s/sx infection. Patient verbalized understanding. Report: Sarah RN, Nathalie CARRERA Follow up: Yes Normal [facility] Lactic Acidon 07-13-2022 Lactate [Mass/Vol] 2.3 mmol/L High 0.5-2.2 [facility] Comment on above: Order Comment: Order added by EKS Rule. (FT_LACTIC_ACID_REFLEX) Adds reflex Lactic Acid 4 hours after initial if result is greater than or equal to 2.0. Performed By: #### 2 922052 ####[facility] [address] [place] [address] Lactate [Mass/Vol] 5.9 mmol/L Abnormal 0.5-2.2 [facility] Comment on above: Result Comment: Crit ical Result verified by repeat analysis\Critical Result S_LAC:5.9Called to STEVE ESTRELLA AT 3S by NEDA MACHUCA And Read Back For Confirmation at: 07/13/2022 12:52:22 Performed By: #### 1 0728863, 4459524, 1833742, 2273172 #### [facility] [address] [place] [address] Monitor Recordon 07-13-2022 Monitor Record [id number]#1.00CD:127 Normal [facility] Monitor Record [id number]#1.00CD:127 Normal [facility] Monitor Record [id number]#1.00CD:127 Normal [facility] Progress Note - Pharmacyon 0 07-13-2022 Progress [...] any questions, please contact the pharmacy at [phone]. Age: 66 Years Allergies: Brilinta; Coban Bandage [...] Lymph Auto: 11 % Low (07/12/22 16:34:00) Clayton Auto: 13.7 % (07/12/22 16:34:00) Eos Auto: 1.5 % (07/12/22 16:34:00) Basophil Auto: 0.8 % (07/12/22 16:34:00) Neutro Absolute: 5.9 E9/L (07/12/22 16:34:00) Lymph Absolute: 0.9 E9/L Low (07/12/22 16:34:00) Clayton Absolute: 1.1 E9/L High (07/12/22 16:34:00) Eos [...] mg/dL High (07/12/22 20:34:00) POC Device SN: [id number] (07/12/22 20:34:00) POC User ID: [id number] (07/12/22 20:34:00) POC Username: URBANO MOJICA (07/12/22 20:34:00) Normal [facility] Progress Note-Nurseon 2022 Progress Note-Nurse Tx tolerated well, hypotension at beginning of Tx, no other significant issues. 0L removed Pre wt 94 Post wt 95 Normal [facility] Progress Note-Physicianon Progress Note-Physician Assessment/Plan 1. Sepsis (A41.9: Sepsis, unspecified organism) 2/2 AVF infection/cellulitis - likely present on admission [...] artery disease (I25.10: Atherosclerotic heart disease of [place] coronary artery without angina pectoris) -Aspirin, atorvastatin, [...] stage renal disease) On HD M/W/F at [facility] -Consult nephro - pending -BP is soft [...] deep vein thrombosis (DVT) prophylaxis (Z79.899: Other detention (current) drug therapy) -Heparin sq with early [...] Start date (more content not included)... Normal [facility] Comment on above: Result Comment: Elec [...] Nura Regalado MD Transcribed by: JASPREET Technologist: KR Normal [facility] Vanco Troughon 07-13-2022 VANCOMYCIN 50 microgram/mL Abnormal 10-20 [facility] Comment on above: Result Comment: Crit ical Result verified by repeat analysis\Critical Result S_VANC_T:50.0 Called to MARYURI MCKEON AT 3S by NEDA MACHUCA And Read Back For Confirmation at: 07/13/2022 06:49:48 Performed By: #### 2 570243, [id number], [id number] #### [facility] [address] [place] [address] WBCon 07-13-2022 WBC corrected for nucl RBC Auto (Bld) [#/Vol] 23.8 E9/L High 4.0-11.0 [facility] Comment on above: Performed By: #### 1 [id number], 1940400, 0698631, 9917839 #### [facility] [address] [place] [address] XR Chest 2 Viewson 3 XR Chest [...] mGy = na DAP = na Normal [facility] eGFRon 07-13-2022 GFR/1.73 sq M.predicted among non-blacks MDRD (S/P/Bld) [Vol rate/Area] 6 mL/min/1.73 m2 Low >=59 [facility] Comment on above: Order Comment: Order added by Discern Expert. Result Comment: Ditcher jm kidney disease could be indicated at eGFR's of less than 60 mL/min/1.73m2. Kidney failure is indicated at less than 15 mL/min/1.73m2. Performed By: #### 2 276204, [id number], 3926550 #### [facility] [address] [place] [address] Auto Diffon 07-12-2022 Basophils/100 WBC (Bld) 0.8 % Normal 0.0-2.0 [facility] Comment on above: Order Comment: Order Added by Discern Expert. Performed By: #### 1 3048994, 0518576, 1302176, 7939033 #### [facility] [address] [place] [address] Basophils/Leukocytes Auto (Bld) [Pure # fraction] 0.1 E9/L Normal 0.0-0.2 [facility] Comment on above: Order Comment: Order Added by Discern Expert. Performed By: #### 1 5714568, 8660585, 5865744, 8635765 #### [facility] [address] [place] [address] Eosinophils/100 WBC (Bld) 1.5 % Normal 0.0-8.0 [facility] Comment on above: Order Comment: Order Added by Discern Expert. Performed By: #### 1 3171500, 9241255, 4171256, 9807634 #### [facility] [address] [place] [address] Eosinophils/Leukocytes Auto (Bld) [Pure # fraction] 0.1 E9/L Normal 0.0-0.5 [facility] Comment on above: Order Comment: Order Added by Discern Expert. Performed By: #### 1 2811979, 4067045, 5705814, 4800729 #### [facility] [address] [place] [address] Lymphocytes/100 WBC (Bld) 11.0 % Low 14.0-50.0 [facility] Comment on above: Order Comment: Order Added by Discern Expert. Performed By: #### 1 8557929, 8532478, 7217371, 9566577 #### [facility] [address] [place] [address] Lymphocytes/Leukocytes Auto (Bld) [Pure # fraction] 0.9 E9/L Low 1.0-4.0 [facility] Comment on above: Order Comment: Order Added by Discern Expert. Performed By: #### 1 3502516, 3400774, 6987023, 4549276 #### [facility] [address] [place] [address] Monocytes/100 WBC (Bld) 13.7 % Normal 4.0-14.0 [facility] Comment on above: Order Comment: Order Added by Discern Expert. Performed By: #### 1 4261158, 6434840, 2461018, 5121637 #### [facility] [address] [place] [address] Monocytes/Leukocytes Auto (Bld) [Pure # fraction] 1.1 E9/L High 0.2-1.0 [facility] Comment on above: Order Comment: Order Added by Discern Expert. Performed By: #### 1 0384736, 4389767, 8612089, 5000888 #### [facility] [address] [place] [address] Neutrophils/100 WBC (Bld) 73.0 % Normal 36.0-75.0 [facility] Comment on above: Order Comment: Order Added by Discern Expert. Performed By: #### 1 4048663, 5245535, 1569326, 1079968 #### [facility] [address] [place] [address] Neutrophils/Leukocytes Auto (Bld) [Pure # fraction] 5.9 E9/L Normal 2.0-7.5 [facility] Comment on above: Order Comment: Order Added by Discern Expert. Performed By: #### 1 3469245, 5749758, 9841796, 4524422 #### [facility] [address] [place] [address] BMPon 07-12-2022 Creatinine [Mass/Vol] 7.6 mg/dL Abnormal 0.5-1.3 [facility] Comment on above: Result Comment: Crit ical Result verified by previous result\Critical Result verified by repeat analysis\Critical Result S_CREA:7.60 Called to JOHANNE BUNCH AT 3N by NOEL ORNELAS And Read Back For Confirmation at: 07/12/2022 16:57:45 Performed By: #### 1 5027811, 6020941, 3838155, 2122091 #### [facility] [address] [place] [address] Urea nitrogen [Mass/Vol] 26 mg/dL High 5-21 [facility] Comment on above: Performed By: #### 1 8067078, 0762335, 4955024, 4205093 #### [facility] [address] [place] [address] Urea nitrogen/Creatinine [Mass ratio] 3 No Units Low 10-20 [facility] Comment on above: Performed By: #### 1 2195859, 3357293, 3034028, 3593848 #### [facility] [address] [place] [address] Anion gap [Moles/Vol] 15 mmol/L Normal 6-16 [facility] Comment on above: Performed By: #### 1 4820459, 7485123, 8934662, 0103052 #### [facility] [address] [place] [address] Calcium [Mass/Vol] 9.2 mg/dL Normal 8.9-11.1 [facility] Comment on above: Performed By: #### 1 8290838, 3773688, 9280451, 6316386 #### [facility] [address] [place] [address] Chloride [Moles/Vol] 98 mmol/L Low 101-111 [facility] Comment on above: Performed By: #### 1 8166716, 8593594, 9710283, 4422249 #### [facility] [address] [place] [address] CO2 [Moles/Vol] 25 mmol/L Normal 21-31 [facility] Comment on above: Performed By: #### 1 5356036, 6187303, 2760382, 5653422 #### [facility] [address] [place] [address] Glucose [Mass/Vol] 203 mg/dL High 55-199 [facility] Comment on above: Result Comment: If t his glucose result represents a fasting glucose, interpretation should refer to the following reference range: 55-99 mg/dL Performed By: #### 1 6192690, 6858194, 4781411, 7672195 #### [facility] [address] [place] [address] Potassium [Moles/Vol] 4.2 mmol/L Normal 3.5-5.3 [facility] Comment on above: Performed By: #### 1 2167929, 1878544, 9728976, 1236757 #### [facility] [address] [place] [address] Sodium [Moles/Vol] 134 mmol/L Low 135-145 [facility] Comment on above: Performed By: #### 1 3980694, 9606827, 9321903, 7784109 #### [facility] [address] [place] [address] CBC w/ Auto Diffon 3 Erythrocyte distribution width (RBC) [Ratio] 16.8 % High 10.9-14.2 [facility] Comment on above: Performed By: #### 1 1062419, 5471029, 4778449, 9057666 #### [facility] [address] [place] [address] Hematocrit (Bld) [Volume fraction] 28.7 % Low 37.7-49.0 [facility] Comment on above: Performed By: #### 1 9176096, 4631190, 3619210, 0508518 #### [facility] [address] [place] [address] Hemoglobin (Bld) [Mass/Vol] 9.5 g/dL Low 13.5-17.5 [facility] Comment on above: Performed By: #### 1 5065246, 0750050, 7892947, 2916888 #### [facility] [address] [place] [address] MCH (RBC) [Entitic mass] 29.6 pg Normal 27.0-34.0 [facility] Comment on above: Performed By: #### 1 9525592, 3422144, 6075798, 7320446 #### [facility] [address] [place] [address] MCHC (RBC) [Mass/Vol] 33.1 g/dL Normal 31.4-36.0 [facility] Comment on above: Performed By: #### 1 4640153, 4049035, 7814401, 0555350 #### [facility] [address] [place] [address] MCV (RBC) [Entitic vol] 89.5 fL Normal 80.0-100.0 [facility] Comment on above: Performed By: #### 1 9259909, 6643032, 6934594, 2796805 #### [facility] [address] [place] [address] Platelet mean volume (Bld) [Entitic vol] 7.4 fL Normal 6.4-10.8 [facility] Comment on above: Performed By: #### 1 8470421, 1571076, 7718883, 2029417 #### [facility] [address] [place] [address] Platelets (Bld) [#/Vol] 284.0 E9/L Normal 150.0-500. 0 [facility] Comment on above: Performed By: #### 1 9712089, 0308016, 4199991, 8874899 #### [facility] [address] [place] [address] RBC (Bld) [#/Vol] 3.2 E12/L Low 4.3-5.9 [facility] Comment on above: Performed By: #### 1 3290345, 4577317, 0846096, 3175893 #### [facility] [address] [place] [address] WBC corrected for nucl RBC Auto (Bld) [#/Vol] 8.1 E9/L Normal 4.0-11.0 [facility] Comment on above: Performed By: #### 1 2711373, 1703294, 5175733, 5455082 #### [facility] [address] [place] [address] Capillary Glucose POCon Glucose [Mass/Vol] 287 mg/dL High 55-99 [facility] Comment on above: Result Comment: Ambrocio vargas RN/ Performed By: #### 1 0457332, 9928012, 9533250, 6678204 #### [facility] [address] [place] [address] Glucose [Mass/Vol] 191 mg/dL High 55-99 [facility] Comment on above: Result Comment: Ambrocio vargas RN/ Performed By: #### 1 3189155, 7829634, 8378655, 1931244 #### [facility] [address] [place] [address] Consent for Treatmenton Consent for Treatment [id number]#[id number]:127 Normal [facility] Consent for Treatment [id number]#1.00CD:127 Normal [facility] Heart and Vascular Office/Cl inic Noteon 07-12-2022 [...] with contrast (08/04/2020), Removal of catheter (07/07/2020), 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 Normal [facility] Comment on above: Result Comment: Elec [...] questions, please contact the pharmacy at extension [phone]. Age: 66 Years Allergies: ALLERGIES Weight: Last [...] 89.5 fL (07/12/22 16:34:00) MCH: 29.6 pg (07/12/22:34:00) MCHC: 33.1 gm/dL (07/12/22 16:34:00) RDW: 16.8 % High (07/12/22 16:34:00) Platelet: 284 E9/L (07/12/22:34:00) MPV: 7.4 fL (07/12/22 16:34:00) Neutro Auto: 73 % (07/12/22 16:34:00) Lymph Auto: 11 % Low (07/12/22 16:34:00) Clayton Auto: 13.7 % (07/12/22 16:34:00) Eos Auto: 1.5 % (07/12/22 16:34:00) Basophil Auto: 0.8 % (07/12/22 16:34:00) Neutro Absolute: 5.9 E9/L (07/12/22 16:34:00) Lymph Absolute: 0.9 E9/L Low (07/12/22 16:34:00) Clayton Absolute: 1.1 E9/L High (07/12/22 16:34:00) Eos Absolute: 0.1 E9/L (07/12/22 16:34:00) Basophil Absolute: 0.1 E9/L (07/12/22 16:34:00) Glucose Lvl: 203 mg/dL High (07/12/22 16:34:00) BUN: 26 mg/dL High (07/12/22 16:34:00) Creatinine: 7.6 mg/dL Critical (07/12/22 16:34:00) eGFR: 7 mL/min/1.73 m2 Low (07/12/22 16:34:00) BUN/Creat Ratio: 3 Low (07/12/22 16:34:00) Sodium Lvl: 134 mmol/L Low (07/12/22 16:34:00) Potassium Lvl: 4.2 mmol/L (07/12/22 16:34:00) Chloride: 98 mmol/L Low (07/12/22 16:34:00) CO2: 25 mmol/L (07/12/22 16:34:00) AGAP: 15 mEq/L (07/12/22 16:34:00) Calcium Lvl: 9.2 mg/dL (07/12/22 16:34:00) Glucose Cap: 191 mg/dL High (07/12/22 16:44:00) POC Device SN: [id number] (07/12/22 16:44:00) POC User ID: [id number] (07/12/22 16:44:00) POC Username: MIKEY CUEVAS (07/12/22 16:44:00) Normal [facility] eGFRon 07-12-2022 GFR/1.73 sq M.predicted among non-blacks MDRD (S/P/Bld) [Vol rate/Area] 7 mL/min/1.73 m2 Low >=59 [facility] Comment on above: Order Comment: Order added by Discern Expert. Result Comment: Ditcher jm kidney disease could be indicated at eGFR's of less than 60 mL/min/1.73m2. Kidney failure is indicated at less than 15 mL/min/1.73m2. Performed By: #### 1 8752900, 6740009, 3634653, 0260698 #### [facility] [address] [place] [address] ED Note-Physicianon 07-12-19 ED Note-Physician Basic Information Time Seen: Zack Campos PA-C 07/09/2022 17:42 Chief Complaint L arm fistula issues for approx. 3 weeks. sent over after [facility] spoke with Dr. Alarcon and [...] just constantly bleeding. He reports that the [facility] did speak with his vascular [...] and Complexity of Problems Differential Diagnosis: [] [facility] Data External documents reviewed: [] My [...] Alarcon In 3 days 07/12/2022 EDT [address] [place] [address]- Business (1) Additional Instructions: Follow-up with Dr. Alarcon for further evaluation of your fistula. Nav Alejo In 3 days 07/12/2022 EDT [address] [place] [address] [place] [address]- Business (1) Additional Instructions: Follow-up with your primary ca (more content not included)... Normal [facility] Comment on above: Result Comment: Elec tronically Signed By: Zack Campos PA-C\.br\Date and Time Signed: 07/09/22 20:28 EDT\.br\Electronically Co-Signed By: Lenard Bernard, Adam Valero\.br\Date and Time Co-Signed: 07/11/22 07:12 EDT US AV Fistula/[place] 2022 US AV Fistula/Graft Exam Date/Time: 07/09/2022 [...] Signed by: Seth Berger M.D. Transcribed by: JASPRETE Technologist: FRANSISCA Technical Comments Type of Fistula/Graft: brachiocephalic Laterality: Left. Normal [facility] US UE Venous Duplex Lefton 0 07-10-2022 [...] MD Transcribed by: JASPREET Technologist: FRANSISCA Normal [facility] Consent for Treatmenton 06-12 Consent for Treatment [id number]:127 Normal [facility] Discharge Instructionson Discharge Instructions [id number]#[id number]:127 Normal [facility] ED Clinical Summaryon 2022 ED Clinical Summary (Inserted Image. Dejah ble to display) [address] [address] ED Clinical Summary Person Information [facility]: [facility] Age[facility] 66 Years : 1955 Sex: Male Language: Bermudian PCP: Nav Alejo MD Marital Status: Visit [...] 19:31:06 07/09/2022 19:31:06 07/09/2022 19:31:06 ADDRESS: [address] [facility] [id number] PHYS DOC NOTES: MEDICAL INFORMATION: Prescriptions Given: New Medications [id number], [address] [place], [place] [id number], [phone] cephalexin (Keflex 500 mg Cap) 1 Capsules [...] Follow up: With: Address: When: Greg Alarcon [address] [place] [address] Business (1) In 3 days 07/12/2022 Comments: Follow-up with Dr. Alarcon for further evaluation of your fistula. With: Address: When: Nav Alejo [address] [place] [address] [place], [place] [id number] Business (1) In 3 days 07/12/2022 Comments: Follow-up with your primary care provider in 3 to 5 days. If symptoms worsen, do not improve, or new symptoms arise please report back to emergency department for further evaluation. DIAGNOSIS: Superficial thrombophlebitis Normal [facility] ED Patient Education Noteon 07-09-2022 ED Patient [...] these instructions at home: Medicines ? Take jhvz-uds-vzjfzab and prescription medicines only as told by [...] cigarettes, chew (more content not included)... Normal [facility] ED Patient Summaryon 023 ED Patient Summary (Inserted Image. Dejah ble to display) [address] [address] Patient Discharge Instructions Person Information Name: SETH MURPHY Age: 66 Years Arrival Date: 07/09/2022 17:21:55 Discharge Diagnosis: Superficial thrombophlebitis Primary Care Physician: Nav Alejo MD Provider Information Primary Provider: Adam Weinberg M.D. Advanced Fishing Game Warden:None The exam and treatment you received in the Emergency Department were for an urgent problem and are not intended as complete care. It is important that you follow up with a doctor, nurse practitioner, or physician?s assistant elementary teacher for ongoing care. If your symptoms become worse or you do not improve as expected and you are unable to reach your usual health care provider, you should return to the Emergency Department. We are available 24 hours a day. SETH MURPHY has been given the following list of patient education materials, prescriptions and follow-up instructions: Follow-up Instructions: With: Address: When: Greg Alarcon [address] [place], [place] [id number] [place] (1) In 3 days 07/12/2022 Comments: Follow-up with Dr. Alarcon for further evaluation of your fistula. With: Address: When: Nav Alejo [address] [place] [address] [place] [id number] [place] (1) In 3 days 07/12/2022 Comments: Follow-up [...] opioids can be used to help relieve eofybzwk-kr-mhcyxh pain and are often prescribed following a [...] flush the (more content not included)... Normal [facility] Cardiovascular Reporton 06-12 Cardiovascular Report 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 Normal [facility] Comment on above: Result Comment: Elec tronically Signed By: Brian SHIN, Sarah Ugalde\.br\Date and Time Signed: 07/03/22 21:20 EDT\.br\Electronically Co-Signed By: Jatin Fournier MD\.br\Date and Time Co-Signed: 07/04/22 12:37 EDT Discharge Instructionson Discharge Instructions [id number]#1.00CD:127 Normal [facility] Progress Note-Nurseon 2022 Progress Note-Nurse [id number]#[id number]:127 Normal [facility] Auto Diffon 07-03-2022 Basophils/100 WBC (Bld) 0.3 % Normal 0.0-2.0 [facility] Comment on above: Order Comment: Order Added by Discern Expert. Performed By: #### 2 363437, 1459417, 1669887, 65628723 ####[facility] [address] [place] [address] Basophils/Leukocytes Auto (Bld) [Pure # fraction] 0.0 E9/L Normal 0.0-0.2 [facility] Comment on above: Order Comment: Order Added by Discern Expert. Performed By: #### 2 456188, 1658125, 4414287, 73097862 ####[facility] [address] [place] [address] Eosinophils/100 WBC (Bld) 1.0 % Normal 0.0-8.0 [facility] Comment on above: Order Comment: Order Added by Discern Expert. Performed By: #### 2 994953, 3703700, 8076018, 86813735 ####[facility] [address] [place] [address] Eosinophils/Leukocytes Auto (Bld) [Pure # fraction] 0.1 E9/L Normal 0.0-0.5 [facility] Comment on above: Order Comment: Order Added by Cayla Expert. Performed By: #### 2 766923, 3716964, 6612836, 40123236 ####[address] [address] Lymphocytes/100 WBC (Bld) 9.1 % Low 14.0-50.0 [facility] Comment on above: Order Comment: Order Added by Cayla Expert. Performed By: #### 2 769977, 1480695, 1539357, 19292581 ####[address] [address] Lymphocytes/Leukocytes Auto (Bld) [Pure # fraction] 0.6 E9/L Low 1.0-4.0 [facility] Comment on above: Order Comment: Order Added by Discern Expert. Performed By: #### 2 963989, 9366774, 7760707, 38900721 ####[place] [address] [place] [address] Monocytes/100 WBC (Bld) 16.7 % High 4.0-14.0 [facility] Comment on above: Order Comment: Order Added by Cayla Expert. Performed By: #### 2 055587, 1723600, 4098933, 41836351 ####[facility] [address] [place] [address] Monocytes/Leukocytes Auto (Bld) [Pure # fraction] 1.2 E9/L High 0.2-1.0 [facility] Comment on above: Order Comment: Order Added by Discern Expert. Performed By: #### 2 983195, 1755988, 6209198, 83410761 ####[facility] [address] [place] [address] Neutrophils/100 WBC (Bld) 72.9 % Normal 36.0-75.0 [facility] Comment on above: Order Comment: Order Added by Discern Expert. Performed By: #### 2 569887, 8017443, 6130537, 84766832 ####[facility] [address] [place] [address] Neutrophils/Leukocytes Auto (Bld) [Pure # fraction] 5.2 E9/L Normal 2.0-7.5 [facility] Comment on above: Order Comment: Order Added by Discern Expert. Performed By: #### 2 920824, 7976551, 4830557, 60399095 ####[facility] [address] [place] [address] BMPon 07-03-2022 Anion gap [Moles/Vol] 19 mmol/L High 6-16 [facility] Comment on above: Performed By: #### 2 125299, 6844349, 8616600, 06085754 ####[facility] [address] [place] [address] Calcium [Mass/Vol] 8.3 mg/dL Low 8.9-11.1 [facility] Comment on above: Performed By: #### 2 061604, 4023631, 7144025, 92749502 ####[facility] [address] [place] [address] Chloride [Moles/Vol] 98 mmol/L Low 101-111 [facility] Comment on above: Performed By: #### 2 575765, 8818871, 2419104, 84956095 ####[facility] [address] [place] [address] CO2 [Moles/Vol] 23 mmol/L Normal 21-31 [facility] Comment on above: Performed By: #### 2 324137, 8365908, 6203009, 39667546 ####[facility] [address] [place] [address] Creatinine [Mass/Vol] 17.8 mg/dL Abnormal 0.5-1.3 [facility] Comment on above: Result Comment: Crit ical Result S_CREA:17.80 Called to BRADY SILVERMAN AT 3N by CATHY LERNER And Read Back For Confirmation at: 07/03/2022 07:23:33\Critical Result verified by previous result Performed By: #### 2 153243, 3348939, 6501308, 19708443 ####[facility] [address] [place] [address] Glucose [Mass/Vol] 226 mg/dL High 55-199 [facility] Comment on above: Result Comment: If t his glucose result represents a fasting glucose, interpretation should refer to the following reference range: 55-99 mg/dL Performed By: #### 2 936076, 7630045, 5850016, 42143379 ####[facility] [address] [place] [address] Potassium [Moles/Vol] 4.8 mmol/L Normal 3.5-5.3 [facility] Comment on above: Performed By: #### 2 661874, 7279666, 3410914, 98395973 ####[facility] [address] [place] [address] Sodium [Moles/Vol] 135 mmol/L Normal 135-145 [facility] Comment on above: Performed By: #### 2 504493, 4583789, 0480923, 94409855 ####[facility] [address] [place] [address] Urea nitrogen [Mass/Vol] 88 mg/dL Abnormal 5-21 [facility] Comment on above: Result Comment: Crit ical Result S_BUN:88 Called to BRADY SILVERMAN AT 3N by CATHY LERNER And Read Back For Confirmation at: 07/03/2022 07:23:33\Critical Result verified by previous result Performed By: #### 2 255570, 6279169, 2177370, 17154871 ####[facility] [address] [place] [address] Urea nitrogen/Creatinine [Mass ratio] 5 No Units Low 10-20 [facility] Comment on above: Performed By: #### 2 000462, 8095195, 1504376, 34688530 ####[address] [address] CBC w/ Auto Diffon 3 Erythrocyte distribution width (RBC) [Ratio] 17.0 % High 10.9-14.2 [facility] Comment on above: Performed By: #### 2 497042, 9187627, 3662464, 56675902 ####[address] [address] Hematocrit (Bld) [Volume fraction] 26.8 % Low 37.7-49.0 [facility] Comment on above: Performed By: #### 2 558073, 5990326, 3723113, 18820484 ####[address] [address] Hemoglobin (Bld) [Mass/Vol] 9.2 g/dL Low 13.5-17.5 [facility] Comment on above: Performed By: #### 2 164883, 8928825, [id number], [id number] ####[address] [address] MCH (RBC) [Entitic mass] 30.4 pg Normal 27.0-34.0 [facility] Comment on above: Performed By: #### 2 925344, 6645243, 1902694, [id number] ####[facility] [address] [place] [address] MCHC (RBC) [Mass/Vol] 34.3 g/dL Normal 31.4-36.0 [facility] Comment on above: Performed By: #### 2 388568, 3758122, 3488499, 67430898 ####[facility] [address] [place] [address] MCV (RBC) [Entitic vol] 88.5 fL Normal 80.0-100.0 [facility] Comment on above: Performed By: #### 2 477671, 4263645, 7226278, [id number] ####[address] [address] Platelet mean volume (Bld) [Entitic vol] 8.4 fL Normal 6.4-10.8 [facility] Comment on above: Performed By: #### 2 749822, 2291818, 5156480, 04288923 ####[address] [address] Platelets (Bld) [#/Vol] 155.0 E9/L Normal 150.0-500. 0 [facility] Comment on above: Performed By: #### 2 601152, 7500574, 0728663, 74308541 ####[address] [address] RBC (Bld) [#/Vol] 3.0 E12/L Low 4.3-5.9 [facility] Comment on above: Performed By: #### 2 359824, 7405616, 5653877, 72969534 ####[address] [address] WBC corrected for nucl RBC Auto (Bld) [#/Vol] 7.1 E9/L Normal 4.0-11.0 [facility] Comment on above: Result Comment: Slid e reviewed by BC. Performed By: #### 2 188590, 7609485, 7088682, 80938482 ####[place] [address] [place] [address] Capillary Glucose POCon 05 Glucose [Mass/Vol] 146 mg/dL High 55-99 [facility] Comment on above: Result Comment: Ambrcoio ELIAS Performed By: #### 2 [id number] #### [facility] [address] [place] [address] Glucose [Mass/Vol] 158 mg/dL High 55-99 [facility] Comment on above: Result Comment: Ambrocio ELIAS Performed By: #### 2 [id number] #### [facility] [address] [place] [address] Cardiovascular Reporton 06-12 Cardiovascular Report [id number]#[id number]:127 Normal [facility] Discharge Note-Nursingon Discharge Note-Nursing SETH MURPHY :1955 [...] with contrast (08/04/2020), Removal of catheter (07/07/2020), 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), AV - Creation of arteriovenous fistula [...] Pending Diagnostic Test Results None Pharmacy Information [facility] ([facility]3] , Other: [facility] Previously Scheduled Follow-Up Appointments Saturday 10:00 AM EDT With: Dorian FISH, Greg Lopez Where: [facility] New Follow Up Appointments after Discharge Follow Up with Greg Alarcon When: 08/06/2022 10:00 AM EDT Where: [address] [place] [address]- Business (1) Follow Up with Nav Alejo When: 07/13/2022 11:15 AM EDT Where: [address] [facility] [place] [address]- Business (1) Medications What How Much When [...] failure Coronary (more content not included)... Normal [facility] Inpatient Clinical Summaryon 07-03-2022 Inpatient Clinical Summary [address] [address] Clinical Summary Person Information: Name: SETH MURPHY Age: 66 Years : 1955 Sex: Male PCP: Nav Alejo MD Marital Status: Race: White Ethnicity: Non- or Language: Bermudian Visit Id: Visit Reason: PERMACATH PLACEMENT FOR DIALYSIS Speciality: Acuity: Enc Type: Observation Med Service: Medical Arrival: 07/02/2022 12:21:12 Discharge: Dispo Type: Address: [address] [place] [id number] Provider Notes: Diagnosis: 1:ESRD on dialysis; 2:Diabetes; [...] Physician: Jatin Fournier MD Referring Physician: Greg Aalrcon MD Follow up: With: Address: When: Greg Alarcon [address] [place] [address] Business (1) Within 1 to 2 weeks With: Address: When: Nav Alejo [address] [place] [address] Business (1) Within 3 to 5 days Patient Education Information: CV - Cardiovascular Discharge Instructions (CUSTOM) [facility] Inpatient Patient Summaryon 07-03-2022 Inpatient Patient Summary [place] [address] Patient Discharge Instructions PERSON INFORMATION Name: SETH [...] Follow up: With: Address: When: Greg Alarcon [address] [place], [place] [id number] Business (1) Within 1 to 2 weeks With: Address: When: Nav Alejo [address] [place], [place] [address] Business (1) Within 3 to 5 days In the event that this physician does not participate in your insurance network, please consult with your insurance company to find a nearby participating provider. Comment: KATHERINE Vilchis WILLIAM, have received the attached patient [...] every day as needed Constipation. Pharmacy Information: [facility] , Other: [facility] Comment: PATIENT EDUCATION INFORMATION Instructions: [place], [place] CARDIOVASCULAR DISCHARGE INSTRUCTIONS Diet: ? Resume pre-procedure diet. ? Inc (more content not included)... [facility] Interdisciplinary Note - Paresh e Manageron 07-03-2022 Interdisciplinary Note - Conical Mixer Pt is asleep in bed, receiving dialysis at this time. Pt is from home with , previously rounded with Dr. Arauz and plan to DC home after dialysis. contact information provided and white board updated. CRM following. [facility] Comment on above: Result Comment: Elec tronically Signed By: Obie TORREZ, Alaina\.asael\Date and Time Signed: 07/03/22 10:14 EDT Monitor Recordon 07-03-2022 Monitor Record [id number]#1.00CD:127 [facility] Monitor Record [id number]:127 [facility] Monitor Record [id number]:127 [facility] Monitor Record [id number]#[id number]:127 [facility] Patient Education - Texton 0 07-03-2022 Patient Education - Text [place], [place] CARDIOVASCULAR DISCHARGE INSTRUCTIONS Diet: ? Resume [...] you are interested in smoking cessation, contact [facility] at [phone], ext. [phone]. ? In the event you are unable to reach your physician, please call [facility] at [phone] and the mellowing machine operator will assist you. Seek Immediate Medical Care for: ? Bleeding: Apply continuous pressure to the site and Call 911. ? Should the arm or leg become cold, numb, blue or white call your physician immediately. ? Signs of infection are redness, warmth, swelling, increased tenderness, colored drainage, fever or chills ? Chest pain Normal [facility] Progress Note-Physicianon Progress Note-Physician Assessment/Plan 1. 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 Normal [facility] Comment on above: Result Comment: Elec tronically Signed By: DAVONTE IFSH, Pedro\.br\Date and Time Signed: 07/03/22 08:34 EDT eGFRon 07-03-2022 GFR/1.73 sq M.predicted among non-blacks MDRD (S/P/Bld) [Vol rate/Area] 3 mL/min/1.73 m2 Low >=59 [facility] Comment on above: Order Comment: Order added by Discern Expert. Result Comment: Ditcher jm kidney disease could be indicated at eGFR's of less than 60 mL/min/1.73m2. Kidney failure is indicated at less than 15 mL/min/1.73m2. Performed By: #### 2 973221, 7640076, 7117892, 20625859 ####[facility] [address] [place] [address] BMPon 07-02-2022 Creatinine [Mass/Vol] 16.8 mg/dL Abnormal 0.5-1.3 [facility] Comment on above: Result Comment: Crit ical Result S_CREA:16.80 Called to [facility] M[facility] by CATHY LERNER And Read Back For Confirmation at: 07/02/2022 13:30:56\Critical Result verified by repeat analysis Performed By: #### 1 1443607, 6294416, 7868389, 1139137 #### [facility] [address] [place] [address] Urea nitrogen [Mass/Vol] 78 mg/dL High 5-21 [facility] Comment on above: Performed By: #### 1 4645275, 5805575, 3373591, 1439369 #### [facility] [address] [place] [address] Urea nitrogen/Creatinine [Mass ratio] 5 No Units Low 10-20 [facility] Comment on above: Performed By: #### 1 5636032, 0474887, 9748511, 2959142 #### [facility] [address] [place] [address] Anion gap [Moles/Vol] 22 mmol/L High 6-16 [facility] Comment on above: Performed By: #### 1 4028892, 7175092, 0703336, 3635410 #### [facility] [address] [place] [address] Calcium [Mass/Vol] 8.9 mg/dL Normal 8.9-11.1 [facility] Comment on above: Performed By: #### 1 5991932, 8472321, 3506023, 6346188 #### [facility] [address] [place] [address] Chloride [Moles/Vol] 96 mmol/L Low 101-111 [facility] Comment on above: Performed By: #### 1 0441521, 8852561, 6976556, 4947575 #### [facility] [address] [place] [address] CO2 [Moles/Vol] 21 mmol/L Normal 21-31 [facility] Comment on above: Performed By: #### 1 4789805, 7263842, 8397496, 6953366 #### [facility] [address] [place] [address] Glucose [Mass/Vol] 229 mg/dL High 55-199 [facility] Comment on above: Result Comment: If t his glucose result represents a fasting glucose, interpretation should refer to the following reference range: 55-99 mg/dL Performed By: #### 1 7177499, 5157269, 3286784, 8158325 #### [facility] [address] [place] [address] Potassium [Moles/Vol] 4.9 mmol/L Normal 3.5-5.3 [facility] Comment on above: Performed By: #### 1 1005856, 2198808, 2165257, 0256793 #### [facility] [address] [place] [address] Sodium [Moles/Vol] 134 mmol/L Low 135-145 [facility] Comment on above: Performed By: #### 1 1081938, 9407434, 0351374, 9487121 #### [facility] [address] [place] [address] Capillary Glucose POCon 06-12 Glucose [Mass/Vol] 253 mg/dL High 55-99 [facility] Comment on above: Performed By: #### 2 [id number] ####[facility] [address] [place] [address] Consent for Treatmenton 06-12 Consent for Treatment [id number]#1.00CD:127 Normal [facility] Interdisciplinary Note - Bang singon 07-02-2022 Interdisciplinary Note - Nursing Called and spoke with Dr. Agudelo- patient's pharmacy buyer regarding his lab values. Patient has not have dialysis since last Saturday06/27/22. Patient is not in any acute distress, does not appear fluid-overloaded, and denies shortness of breath, however physician contacted regarding patient's critical labs. Patient is to report to [facility] tomorrow morning at 6:30 am. Patient and family member at bedside aware and agree with plan. Normal [facility] Monitor Recordon 07-02-2022 Monitor Record [id number]#[id number]:127 Normal [facility] Operative Reporton Operative Report SURGERY DATE: 2022 [...] complications. Greg Alarcon M.D. lr Dictated: 07/02/2022 [id number] Transcribed: 07/02/2022 [facility] Comment on above: Result Comment: Elec tronically Signed By: Dorian FISH, Greg Lopez\.br\Date and Time Signed: 07/02/22 15:32 EDT eGFRon 07-02-2022 GFR/1.73 sq M.predicted among non-blacks MDRD (S/P/Bld) [Vol rate/Area] 3 mL/min/1.73 m2 Low >=59 [facility] Comment on above: Order Comment: Order added by Discern Expert. Result Comment: Ditcher jm kidney disease could be indicated at eGFR's of less than 60 mL/min/1.73m2. Kidney failure is indicated at less than 15 mL/min/1.73m2. Performed By: #### 1 2951692, 0266371, 9244877, 2111845 #### [facility] [address] [place] [address] Discharge Instructionson Discharge Instructions [id number]#[id number]:127 Normal [facility] BMPon 06-29-2022 Creatinine [Mass/Vol] 10.3 mg/dL Abnormal 0.5-1.3 [facility] Comment on above: Result Comment: Crit ical Result verified by repeat analysis\Critical Result S_CREA:10.30 Called to [facility] by NOEL ORNELAS And Read Back For Confirmation at: 06/29/2022 17:06:57 Performed By: #### 1 9860410, 7175827, 5168406, 7095915 #### [facility] [address] [place] [address] Urea nitrogen [Mass/Vol] 41 mg/dL High 5-21 [facility] Comment on above: Performed By: #### 1 6840270, 3893107, 1975284, 7448244 #### [facility] [address] [place] [address] Urea nitrogen/Creatinine [Mass ratio] 4 No Units Low 10-20 [facility] Comment on above: Performed By: #### 1 5150456, 8664069, 6604486, 8014442 #### [facility] [address] [place] [address] Anion gap [Moles/Vol] 16 mmol/L Normal 6-16 [facility] Comment on above: Performed By: #### 1 4167551, 9873839, 3985131, 8882663 #### [facility] [address] [place] [address] Calcium [Mass/Vol] 9.6 mg/dL Normal 8.9-11.1 [facility] Comment on above: Performed By: #### 1 1881834, 3151266, 9210865, 4973995 #### [facility] [address] [place] [address] Chloride [Moles/Vol] 98 mmol/L Low 101-111 [facility] Comment on above: Performed By: #### 1 0803791, 5726836, 3813550, 1281053 #### [facility] [address] [place] [address] CO2 [Moles/Vol] 25 mmol/L Normal 21-31 [facility] Comment on above: Performed By: #### 1 9475558, 6311566, 5370952, 6334475 #### [facility] [address] [place] [address] Glucose [Mass/Vol] 159 mg/dL Normal 55-199 [facility] Comment on above: Result Comment: If t his glucose result represents a fasting glucose, interpretation should refer to the following reference range: 55-99 mg/dL Performed By: #### 1 1702126, 6887347, 7917175, 3691107 #### [facility] [address] [place] [address] Potassium [Moles/Vol] 4.3 mmol/L Normal 3.5-5.3 [facility] Comment on above: Performed By: #### 1 2388484, 2305231, 4111038, 6982536 #### [facility] [address] [place] [address] Sodium [Moles/Vol] 135 mmol/L Normal 135-145 [facility] Comment on above: Performed By: #### 1 3481002, 3469030, 1923579, 3638325 #### [facility] [address] [place] [address] Consent for Treatmenton 06-11 Consent for Treatment [id number]#[id number]:127 Normal [facility] ED Clinical Summaryon 2022 ED Clinical Summary (Inserted Image. Dejah ble to display) [address] [address] ED Clinical Summary Person Information [facility]: [facility] Age[facility] 66 Years : 1955 Sex: Male Language: Bermudian PCP: Nav Alejo MD Marital Status: Visit [...] 06/29/2022 19:18:57 06/29/2022 19:18:57 06/29/2022 19:18:57 ADDRESS: [address] [place] [phone] PHYS DOC NOTES: MEDICAL INFORMATION: Prescriptions Given: Medications [...] up: With: Address: When: Greg Alarcon [address] [place] [id number] Business (1) In 3 days 07/02/2022 Comments: Call the office of Dr. Alarcon upon opening on Saturday to arrange for permacath dialysis catheter placement on Saturday morning. With: Address: When: G[address]NI [address] [place] [address] Business (1) In 3 days [...] reevaluation. With: Address: When: Nav Alejo [address] [place] [address] Business (1) In 3 days [...] DIAGNOSIS: Complication of AV dialysis fistula Normal [facility] ED Note-Physicianon 06-30-19 ED Note-Physician Basic Information Time Seen: Reji Azar DO 06/29/2022 15:56 Chief Complaint pt reports fistula in left arm is clotted off and not working. pt came from dialysis center in [place] History of Present Illness 66-year-old male to [...] Agudelo who is on-call for the patient's pharmacy buyer Dr. Nunez. He is okay with the [...] Alarcon In 3 days 07/02/2022 EDT [address] [place] [address]- Business (1) Additional Instructions: Call the office of Dr. Alarcon upon opening on Saturday to arrange for permacath dialysis catheter placement on Saturday morning. HILARIO NUNEZ In 3 days 07/02/2022 EDT [address] [place] [address] [place] [address]- Business (1) Additional Instructions: Call the office on Saturday and notify them of the issues with your fistula. Ask them to arrange dialysis for you on Saturday. Eat a low potassium diet. Limit your fluid intake. If you become short of breath or begin feeling unwell return to the ED immediately for reevaluation. Nav Alejo In 3 days 07/02/2022 EDT [address] [place] [address] [place] [address]- Business (1) Additional Instructions: Call the office of your primary care doctor to arrange for follow-up within the above-stated timeframe. Follow-up with your primary care doctor about this ED visit. You should review your labs, imaging, and diagnoses from this ED visit with your primary care physician. There are occasionally non-emergent findings that requir (more content not included)... Normal [facility] Comment on above: Result Comment: Elec tronically Signed By: Reji Azar DO\.asael\Date and Time Signed: 06/29/22 19:10 EDT ED [...] these instructions at home: Medicines ? Take pkie-ehn-lznyzxz and prescription medicines only as told by your health care provider. ? Ask your health care provider if the medicine prescribed to you can cause constipation. You may need to take these actions to prevent or treat constipation: ? Drink enough fluid to keep your urine pale yellow. ? Take sfcn-gbg-lbaaxyx or prescription medicines. ? Eat foods that [...] and water are not available, use hand glazing department supervisor. ? Change your dressing as told by [...] provider. Document Revised: 09/07/2020 Document Reviewed: 09/07/2020 [employer] Patient Education ? 2022 [employer] Potassium Content of Foods Potassium is a mineral found in many foods and drinks. It can affect how the heart works, affect blood pressure, and keep fluids and electrolytes balanced in the body. It is important not to have too much potassium (hyperkalemia) or too little potassium (hypokalemia) in the body, especially in the blood. Potassium i (more content not included)... Normal [facility] ED Patient Summaryon 023 ED Patient Summary (Inserted Image. Dejah ble to display) [place] [id number] Patient Discharge Instructions Person Information Name: SETH MURPHY Age: 66 Years Arrival Date: 06/29/2022 15:44:02 Discharge Diagnosis: Complication of AV dialysis fistula Primary Care Physician: Nav Alejo MD Provider Information Primary Provider: Reji Azar DO Advanced Fishing Game Warden:None The exam and treatment you received in the Emergency Department were for an urgent problem and are not intended as complete care. It is important that you follow up with a doctor, nurse practitioner, or physician?s assistant elementary teacher for ongoing care. If your symptoms become worse or you do not improve as expected and you are unable to reach your usual health care provider, you should return to the Emergency Department. We are available 24 hours a day. SETH MURPHY has been given the following list of patient education materials, prescriptions and follow-up instructions: Follow-up Instructions: With: Address: When: Greg Alarcon [address] [place], [place] [phone] Business (1) In 3 days 07/02/2022 Comments: Call the office of Dr. Alarcon upon opening on Saturday to arrange for permacath dialysis catheter placement on Saturday morning. With: Address: When: HILARIO NUNEZ [address] [place] [address], [place] [address] Business (1) In 3 days [...] reevaluation. With: Address: When: Nav Alejo [address] [facility] [place] [address] Business (1) In 3 days [...] opioids can be used to help relieve uqrmnszi-nz-xjcscm pain and are often prescribed following a [...] Cognitive b (more content not included)... Normal [facility] US AV Fistula/Lisa 2022 US AV Fistula/Graft Exam Date/Time: 06/29/2022 18:59 EDT Reason for Exam: Not functioning;Other (please specify) Report IMPRESSION: Thrombus within the fistula without associated vascular flow as discussed. EXAMINATION: US AV Fistula/Graft HISTORY: History of brachiocephalic fistula, [...] of Fistula/Graft: left brachiocephalic Laterality: Left. Normal [facility] eGFRon 06-29-2022 GFR/1.73 sq M.predicted among non-blacks MDRD (S/P/Bld) [Vol rate/Area] 5 mL/min/1.73 m2 Low >=59 [facility] Comment on above: Order Comment: Order added by Discern Expert. Result Comment: Ditcher jm kidney disease could be indicated at eGFR's of less than 60 mL/min/1.73m2. Kidney failure is indicated at less than 15 mL/min/1.73m2. Performed By: #### 1 [id number], 8941995, 3319246, 0776590 #### [facility] [address] [place] [address] Progress Noteson 05-17-2022 Temperature Regulator Authentication Interface Message Text EMERGENCY TRIAGE, TREAT AND TRANSPORT (ET3) DOCUMENTATION OF TELEHEALTH VISIT Date / Time: 05/16/20221754 Name: Dedrick Murphy : 1955 SSN: (Not on file) EMS Agency: [facility] [] Verbal consent obtained [x] Implied [...] Completed by: Guicho Angelo DO Normal [facility] SYMPTOMATIC COVID-19 ANTIGEN on 05-09-2022 EUA Statement SEE BELOW Normal [facility] Comment on above: Result Comment: [...] sooner. Performed By: #### C VDAGS #### [facility] [address] [place] [address] Dr. Radha Edward SARS-CoV-2 (COVID-19) RNA IRENE+probe Ql (Unsp spec) Positive Abnormal NEGATIVE [facility] Comment on above: Performed By: #### C VDAGS #### [facility] [address] [place] [address] Dr. Radha Edward CHEMISTRYOrdered By: SYSTEM SYSTEM [...] 8 mL/min/1.73 m2 Low >=59mL/min /1.73 m2 [facility] Chem S Glucose [Mass/Vol] 198 [...] NATHEN LUCIA Date: 2022-02-15 11:42 Normal [facility] CULTURE WOUNDon 01-15-2022 CULTURE WOUND Culture [...] Trimethoprim/Sulfamethoxaz ole <=20 S F Normal [facility] Comment on above: Performed By: #### W OUNDCX #### [facility] [address] [place], [place] [address] Dr. 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 Normal [facility] Tobacco Screening.on 022 Fall risk assessment a) No falls within the last year [facility] [place] [address] DO Work Phone: Tobacco use status CP b) No [facility] [address] [employer] [place] [address] DO Work Phone: CBC AUTO DIFFon 08-28-2021 BASO # 0.0 103/ul Normal 0.0-0.1 [facility] Comment on above: Performed By: #### C BC #### [facility] [facility] [address] [address] [address] Radha Edward Basophils/100 WBC (Bld) 0.6 % Normal 0.2-2.0 [facility] Comment on above: Performed By: #### C BC #### [facility] [address] [address] [address] Radha Edward EO # 0.1 103/ul Normal 0.0-0.7 [facility] Comment on above: Performed By: #### C BC #### [facility] [address] [place] [address] Dr. Radha Edward Eosinophils/100 WBC (Bld) 1.7 % Normal 0.9-7.0 [facility] Comment on above: Performed By: #### C BC #### [facility] [address] [place] [address] Dr. Radha Edward Erythrocyte distribution width (RBC) [Ratio] 14.5 % Normal 11.0-15.0 [facility] Comment on above: Performed By: #### C BC #### [facility] [address] [place] [address] Dr. Radha Edward Hematocrit (Bld) [Volume fraction] 34.0 % Critically low 42.0-54.0 [facility] Comment on above: Performed By: #### C BC #### [facility] [address] [place] [address] Dr. Radha Edward Hemoglobin (Bld) [Mass/Vol] 11.1 g/dL Critically low 14.0-18.0 [facility] Comment on above: Performed By: #### C BC #### [facility] [address] [place] [address] Dr. Radha Edward IG # 0.02 10e3/ul Normal 0.00-0.03 [facility] Comment on above: Performed By: #### C BC #### [facility] [address] [place] [address] Dr. Radha Edward IG % 0.4 % Normal 0.0-0.5 [facility] Comment on above: Performed By: #### C BC #### [facility] [address] [place] [address] Dr. Radha Edward LYMPH # 1.0 103/ul Critically low 1.2-3.8 [facility] Comment on above: Performed By: #### C BC #### [facility] [address] [place] [address] Dr. Radha Edward Lymphocytes/100 WBC (Bld) 18.6 % Critically low 20.5-60.0 [facility] Comment on above: Performed By: #### C BC #### [facility] [address] [place] [address] Dr. Radha Edward MANUAL DIFF REQ NO Normal [facility] Comment on above: Performed By: #### C BC #### [facility] [address] [place] [address] Dr. Radha Edward MCH (RBC) [Entitic mass] 30.5 pg Normal 25.9-34.0 [facility] Comment on above: Performed By: #### C BC #### [facility] [address] [place] [address] Dr. Radha Edward MCHC (RBC) [Mass/Vol] 32.6 g/dL Normal 29.9-35.2 [facility] Comment on above: Performed By: #### C BC #### [facility] [address] [place] [address] Dr. Radha Edward MCV (RBC) [Entitic vol] 93.4 fL Normal 80.0-94.0 [facility] Comment on above: Performed By: #### C BC #### [facility] [address] [place] [address] Dr. Radha Edward MONO # 0.8 103/ul Normal 0.3-0.8 [facility] Comment on above: Performed By: #### C BC #### [facility] [address] [place] [address] Dr. Radha Edward Monocytes/100 WBC (Bld) 15.1 % Critically high 1.7-12.0 [facility] Comment on above: Performed By: #### C BC #### [facility] [address] [place] [address] Dr. Radha Edward NEUT # 3.5 103/ul Normal 1.4-6.5 [facility] Comment on above: Performed By: #### C BC #### [facility] [address] [place] [address] Dr. Radha Edward Neutrophils/100 WBC (Bld) 63.6 % Normal 43.0-75.0 [facility] Comment on above: Performed By: #### C BC #### [facility] [address] [place] [address] Dr. Radha Edward Platelet mean volume (Bld) [Entitic vol] 9.8 fL Normal 9.5-13.5 [facility] Comment on above: Performed By: #### C BC #### [facility] [address] [address] [address] Radha Edward PLT 156 103/ul Normal 150-450 [facility] Comment on above: Performed By: #### C BC #### [facility] [address] [place] [address] Dr. Radha Edward RBC 3.64 106/ul Critically low 4.70-6.10 [facility] Comment on above: Performed By: #### C BC #### [facility] [address] [place] [address] Dr. Radha Edward WBC 5.4 103/ul Normal 4.0-11.0 [facility] Comment on above: Performed By: #### C BC #### [facility] [address] [place] [address] Dr. Radha Edward PROF 14(COMP METB)on 022 Albumin [Mass/Vol] 3.6 g/dL Normal 3.4-5.[address] [facility] Comment on above: Performed By: #### C MP, TSH, HSTROPN #### [facility] [address] [place] [address] Dr. Radha Edward Albumin/Globulin [Mass ratio] 0.9 {ratio} Normal [facility] Comment on above: Performed By: #### C MP, TSH, HSTROPN #### [facility] [address] [place] [address] Dr. Radha Edward ALP [Catalytic activity/Vol] 135 U/L Critically high 46-116 [facility] Comment on above: Performed By: #### C MP, TSH, HSTROPN #### [facility] [address] [place] [address] Dr. Radha Edward ALT [Catalytic activity/Vol] 21 U/L Normal 16-63 [facility] Comment on above: Performed By: #### C MP, TSH, HSTROPN #### [facility] [address] [address] [address] Radha Edward Anion gap [Moles/Vol] 13.6 mmol/L Normal [facility] Comment on above: Performed By: #### C MP, TSH, HSTROPN #### [facility] [address] [address] [address] Radha Edward AST [Catalytic activity/Vol] 14 U/L Critically low 15-37 [facility] Comment on above: Performed By: #### C MP, TSH, HSTROPN #### [facility] [address] [address] [address] Radha Edward Bilirubin [Mass/Vol] 0.6 mg/dL Normal 0.2-1.0 [facility] Comment on above: Performed By: #### C MP, TSH, HSTROPN #### [facility] [address] [place] [address] Dr. Radha Edward Calcium [Mass/Vol] 9.1 mg/dL Normal 8.5-10.[address] [facility] Comment on above: Performed By: #### C MP, TSH, HSTROPN #### [facility] [address] [address] [address] Radha Edward Chloride [Moles/Vol] 95 mmol/L Critically low 98-107 [facility] Comment on above: Performed By: #### C MP, TSH, HSTROPN #### [facility] [address] [address] [address] Radha Edward CO2 [Moles/Vol] 29.8 mmol/L Normal 21.0-32.0 [facility] Comment on above: Performed By: #### C MP, TSH, HSTROPN #### [facility] [address] [address] [address] Radha Edward Creatinine [Mass/Vol] 5.55 mg/dL Critically high 0.70-1.30 [facility] Comment on above: Performed By: #### C MP, TSH, HSTROPN #### [facility] [address] [place] [address] Dr. Radha Edward EGFR-AF SERBIAN 13 mL/min/1.73m2 Critically low >=60 [facility] Comment on above: Performed By: #### C MP, TSH, HSTROPN #### [facility] [address] [place] [address] Dr. Radha Edward EGFR-NON AF SERBIAN 10 mL/min/1.73m2 Critically low >=60 [facility] Comment on above: Performed By: #### C MP, TSH, HSTROPN #### [facility] [address] [place] [address] Dr. Radha Edward Globulin (S) [Mass/Vol] 3.9 g/dL Normal [facility] Comment on above: Performed By: #### C MP, TSH, HSTROPN #### [facility] [address] [place] [address] Dr. Radha Edward Glucose [Mass/Vol] 164 mg/dL Critically high 74-106 [facility] Comment on above: Performed By: #### C MP, TSH, HSTROPN #### [facility] [address] [place] [address] Dr. Radha Edward Potassium [Moles/Vol] 3.4 mmol/L Critically low 3.5-5.1 [facility] Comment on above: Performed By: #### C MP, TSH, HSTROPN #### [facility] [address] [place] [address] Dr. Radha Edward Protein [Mass/Vol] 7.5 g/dL Normal 6.4-8.[address] [facility] Comment on above: Performed By: #### C MP, TSH, HSTROPN #### [facility] [address] [place] [address] Dr. Radha Edward Sodium [Moles/Vol] 135 mmol/L Critically low 136-145 [facility] Comment on above: Performed By: #### C MP, TSH, HSTROPN #### [facility] [address] [place] [address] Dr. Radha Edward Urea nitrogen [Mass/Vol] 13.0 mg/dL Normal 7.0-18.0 [facility] Comment on above: Performed By: #### C MP, TSH, HSTROPN #### [facility] [address] [address] [address] Radha Edward Urea nitrogen/Creatinine [Mass ratio] 2.3 mg/mg Normal [facility] Comment on above: Performed By: #### C MP, TSH, HSTROPN #### [facility] [address] [address] [address] Radha Edward TROPONIN, HIGH SENSITIVITYon 08-28-2021 HSTROP 11.8 pg/mL Normal 4.0-76.1 [facility] Comment on above: Result Comment: CUT- OFF POINTS HAVE BEEN ESTABLISHED BASED ON THE FOURTH UNIVERSAL DEFINITIONS OF MYOCARDIAL INFARCTION. THE UPPER REFERENCE LIMIT (URL) OF TROPONIN, DEFINED THE 99TH PERCENTILE OF cTnI DISTRIBUTION IN A REFERENCE POPULATION, HAS BEEN CONFIRMED THE DECISION THRESHOLD FOR WY DIAGNOSIS. Performed By: #### C MP, TSH, HSTROPN #### [facility] [address] [address] [address] Radha Edward TSHon 08-28-2021 TSH 0.749 uIU/mL Normal 0.358-3.74 0 [facility] Comment on above: Performed By: #### C MP, TSH, HSTROPN #### [facility] [address] [address] [address] Radha Edward XR CHEST 1 Von 08-28-2021 XR CHEST 1 V CHEST X-RAY, 1 VIEW HISTORY: Bradycardia. Chest pain. COMPARISON: 09/01/2019. FINDINGS: The cardiac silhouette is enlarged. Left hemidiaphragm is elevated. The lungs are grossly clear. There are no pleural effusions. There is no pneumothorax. IMPRESSION: No evidence of acute cardiopulmonary disease. Electronically authenticated by: CHRISTIANNE MELVIN Date: 2021-08-28 18:59 Normal [facility] Office Visit (Cardiology)on 07-13-2021 Follow-up visit [...] COVID illness in 2019. He underwent anterior WY with PCI chronic total occlusion of the proximal through mid LAD x2 drug-eluting stents in March 2018; follow-up echocardiogram revealed low normal left ventricular function with ejection fraction of 50% in September 2018. In March 2020 he underwent COVID infection with prolonged intubation and hospitalization in [place] with multiorgan failure details of which have [...] Heparin (Porcine) in NaCl 1000-0.9 UT/500ML-% Intravenous [id number] unitts every dialysis loading dose hydrALAZINE HCl [...] Recorded: 13Jul2021 11:47AM Heart Rate66, R Radial Fhrnpqxz117, RUE, Sitting Pwkhveqsc22, RUE, Sitting Height5 ft 10 in Qfhesz878 lb BMI Pqjbnvfjxz56.14 kg/m2 BSA Calculated2.19 Tobacco Useb) No PHQ-2 [...] Jul 13 2021 12:27PM EST (Author) Normal [employer] Tobacco Screening.on 022 Adult depression screening assessment No [facility] [address] DO Work Phone: Fall risk assessment a) No falls within the last year -[facility] [address] DO Work Phone: Tobacco use status CPHS b) No [facility] [address] DO Work Phone: Echocardiogramon 10-20-[address], [address] [place] [address] TRANSTHORACIC ECHOCARDIOGRAM REPORT Patient Name: SETH Bowers Physician: [id number] Alfredo Saravia DO Study Date: 10/20/2020 Referring [id number] SETH YING Physician: MRN/PID: [id number] PCP: Nav Alejo Accession/Order#: [id number] Department [facility] Location: [place] Date of : 1955 Fellow: Gender: M Nurse: Admit Date: Program Lead: Deena Adams RDCS, RVT Height: 177.80 cm CC Report to: Marina Agudelo Weight: 103.42 kg Study Type: Echocardiogram BSA: 2.21 m2 Diagnosis/ICD: 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 Author Type: Physician Rounding And Backing Machine Operator Type: Progress Notes Filed: 08/28/2019 10:29 AM Note Text: [facility] NOTE NAME: CHRISTY MURPHY NO.: [id number] DATE OF SERVICE: 08/27/2019 [facility] DATE OF : 1955 CHIEF COMPLAINT: Followup for discharge. SUBJECTIVE FINDINGS: The patient was seen in his room at [facility] lying in bed. I remained [...] DICTATED BY: Diane Lerner PA-C PG/Meagan JOB# [id number] cc:[facility] Normal [facility] PROGRESSon 08-07-2019 PROGRESS HNO ID: [id number] Author: Diane Lerner (Pa) Service: ? Author Type: Physician Rounding And Backing Machine Operator Type: Progress Notes Filed: 08/11/2019 6:39 AM Note Text: [facility] NOTE NAME: CHRISTY MURPHY NO.: [id number] DATE OF SERVICE: 08/07/2019 [facility] DATE OF : 1955 [facility] CHART VISIT NOTE CHIEF COMPLAINT: Followup for end-stage renal disease, weakness, and other medical issues. SUBJECTIVE FINDINGS: The patient was seen in his room at [facility] lying in bed. I remained [...] any bowel issues. MEDICATIONS: Reviewed in the care home record. CODE STATUS: Full code. PHYSICAL EXAMINATION: [...] DICTATED BY: Diane Lerner PA-C PG/Meagan JOB# [id number] cc:[facility] Normal [facility] PROGRESSon 07-29-2019 PROGRESS HNO ID: [id number] Author: Diane Lerner (Pa) Service: ? Author Type: Physician Rounding And Backing Machine Operator Type: Progress Notes Filed: 07/30/2019 12:39 PM Note Text: [facility] NOTE NAME: CHRISTY MURPHY NO.: [id number] DATE OF SERVICE: 07/29/2019 [facility] DATE OF : 1955 CHIEF COMPLAINT: Follow up for end-stage renal disease, weakness, and other medical issues. SUBJECTIVE FINDINGS: The patient was seen in his room at [facility] sitting up in his wheelchair. [...] SYSTEMS: See above. MEDICATIONS: Reviewed in the care home record. CODE STATUS: Full code. PHYSICAL EXAMINATION: [...] DICTATED BY: Diane Lerner PA-C PG/Meagan JOB# [id number] cc:[facility] Normal [facility] PROGRESSon 07-27-2019 PROGRESS HNO ID: [id number] Author: Saad Ahumada Service: ? Author Type: Physician Type: Progress Notes Filed: 07/29/2019 5:29 PM Note Text: [facility] NOTE NAME: CHRISTY MURPHY NO.: [id number] DATE OF SERVICE: 07/27/2019 [facility] DATE [...] family. DICTATED BY: MD FLAKITO White/Meagan JOB# [id number] cc:[facility] Normal [facility] PROGRESSon 07-16-2019 PROGRESS HNO ID: [id number] Author: Diane Chacon) Abdullahi Service: ? Author Type: Physician Rounding And Backing Machine Operator Type: Progress Notes Filed: 07/17/2019 11:59 AM Note Text: [facility] NOTE NAME: CHRISTY MURPHY NO.: [id number] DATE OF SERVICE: 07/16/2019 [facility] DATE OF : 1955 [facility] CHART VISIT NOTE CHIEF COMPLAINT: Followup for potential discharge. SUBJECTIVE FINDINGS: The patient was seen in his room at [facility] sitting up in his wheelchair. [...] Have asked our staff to contact his oil heater installer's office to clarify his aspirin dose. 3. [...] DICTATED BY: Diane Lerner PA-C PG/Acjanis JOB# [id number] cc:[facility] Normal [facility] PROGRESSon 07-13-2019 PROGRESS HNO ID: [id number] Author: Diane Lerner (Pa) Service: ? Author Type: Physician Rounding And Backing Machine Operator Type: Progress Notes Filed: 07/14/2019 2:18 PM Note Text: [facility] NOTE NAME: CHRISTY MURPHY NO.: [id number] DATE OF SERVICE: 07/13/2019 [facility] DATE OF : 1955 [facility] CHART VISIT NOTE CHIEF COMPLAINT: Skilled followup visit for end-stage renal disease, coronary artery disease, and other medical issues. SUBJECTIVE FINDINGS: The patient was seen in his room at [facility] for a skilled followup visit. [...] SYSTEMS: See above. MEDICATIONS: Reviewed in the care home record. CODE STATUS: Full code. PHYSICAL EXAMINATION: [...] We will ask staff to contact his oil heater installer's office to clarify the aspirin dose. 3. [...] DICTATED BY: Diane Lerner PA-C PG/Meagan JOB# [id number] cc:[facility] Normal [facility] PROGRESSon 07-09-2019 PROGRESS HNO ID: [id number] Author: Diane Lerner (Pa) Service: ? Author Type: Physician Rounding And Backing Machine Operator Type: Progress Notes Filed: 07/13/2019 10:19 AM Note Text: [facility] NOTE NAME: CHRISTY MURPHY NO.: [id number] DATE OF SERVICE: 07/09/2019 [facility] DATE OF : 1955 CHIEF COMPLAINT: Skilled followup visit for coronary artery disease, renal disease, and other medical issues. SUBJECTIVE FINDINGS: The patient was seen in his room at [facility] for skilled followup visit. I [...] stents. He follows with Dr. Ying in [place]. In addition, his current aspirin dose is [...] Please see above. MEDICATIONS: Reviewed in the care home record. CODE STATUS: Full code. PHYSICAL EXAMINATION: [...] DICTATED BY: Diane Lerner PA-C PG/Meagan JOB# [id number] cc:[facility] Normal [facility] PROGRESSon 07-01-2019 PROGRESS HNO ID: [id number] Author: Diane Lerner (Pa) Service: ? Author Type: Physician Rounding And Backing Machine Operator Type: Progress Notes Filed: 07/03/2019 7:47 AM Note Text: [facility] NOTE NAME: CHRISTY MURPHY NO.: [id number] DATE OF SERVICE: 07/01/2019 [facility] DATE OF : 1955 [facility] CHART VISIT NOTE CHIEF COMPLAINT: Venous stasis of the legs, weakness, and other medical issues. SUBJECTIVE FINDINGS: The patient was seen in his room at [facility] for skilled followup visit. I [...] SYSTEMS: See above. MEDICATIONS: Reviewed in the care home record. CODE STATUS: Full code. PHYSICAL EXAMINATION: [...] DICTATED BY: Diane Lerner PA-C PG/Meagan JOB# [id number] cc:[facility] Normal [facility] PROGRESSon 06-26-2019 PROGRESS HNO ID: [id number] Author: Diane Lerner (Pa) Service: ? Author Type: Physician Rounding And Backing Machine Operator Type: Progress Notes Filed: 06/29/2019 12:17 PM Note Text: [facility] NOTE NAME: CHRISTY MURPHY NO.: [id number] DATE OF SERVICE: 06/26/2019 [facility] DATE OF : 1955 [facility] CHART VISIT NOTE CHIEF COMPLAINT: Followup for renal disease, type 2 diabetes mellitus, and other medical issues. SUBJECTIVE FINDINGS: The patient was seen in his room sitting up in his wheelchair at [facility]. I remained greater than 6 [...] SYSTEMS: See above. MEDICATIONS: Reviewed in the care home record. CODE STATUS: Full code. PHYSICAL EXAMINATION: [...] DICTATED BY: Diane Lerner PA-C PG/Meagan JOB# [id number] cc:[facility] Normal [facility] PROGRESSon 06-18-2019 PROGRESS HNO ID: [id number] Author: Diane Lerner (Pa) Service: ? Author Type: Physician Rounding And Backing Machine Operator Type: Progress Notes Filed: 06/19/2019 1:37 PM Note Text: [facility] NOTE NAME: CHRISTY MURPHY NO.: [id number] DATE OF SERVICE: 06/18/2019 [facility] DATE OF : 1955 [facility] CHART VISIT NOTE CHIEF COMPLAINT: Follow up for end-stage renal disease, type 2 diabetes mellitus, weakness, and other medical issues. SUBJECTIVE FINDINGS: The patient was seen in his room sitting up in his wheelchair at [facility]. I remained greater than 6 [...] lift for transfers. MEDICATIONS: Reviewed in the care home record. CODE STATUS: Full code. PHYSICAL EXAMINATION: [...] DICTATED BY: Diane Lerner PA-C PG/Acjanis JOB# [id number] cc:[facility] Normal [facility] PROGRESSon 06-16-2019 PROGRESS HNO ID: [id number] Author: Diane Lerner (Pa) Service: ? Author Type: Physician Rounding And Backing Machine Operator Type: Progress Notes Filed: 06/17/2019 3:57 PM Note Text: [facility] NOTE NAME: CRHISTY MURPHY NO.: [id number] DATE OF SERVICE: 06/16/2019 [facility] DATE OF : 1955 CHIEF COMPLAINT: Skilled followup visit for type 2 diabetes mellitus, renal disease, and other medical issues. SUBJECTIVE FINDINGS: The patient was seen in his room lying in bed at [facility]. I remained greater than 6 [...] Please see above. MEDICATIONS: Reviewed in the care home record. CODE STATUS: Full code. PHYSICAL EXAMINATION: Temperature 98.2, pulse 75, respirations 16, BP 108/55, pulse oximetry 96%. Examination revealed an obese, qnoswk-gkni-qjbroguda male lying in bed. He was in [...] DICTATED BY: Diane Lerner PA-C PG/Acjanis JOB# [id number] cc:[facility] Normal [facility] PROGRESSon 06-15-2019 PROGRESS HNO ID: [id number] Author: Saad Ahumada Service: ? Author Type: Physician Type: Progress Notes Filed: 06/18/2019 4:17 PM Note Text: [facility] NOTE NAME: CHRISTY MURPHY NO.: [id number] DATE OF SERVICE: 06/15/2019 [facility] DATE OF : 1955 NEW PATIENT HISTORY AND PHYSICAL HISTORY OF PRESENT ILLNESS: The patient is a 63-year-old male who was admitted to us from [facility] with the diagnosis of acute [...] hospital with fever and increasing malaise. At [facility], he was treated for congestive heart failure exacerbation and bacterial pneumonia with antibiotics. However, his condition worsened requiring intubation, after which he was transferred to [facility] Intensive Care Unit where he [...] possible. DICTATED BY: MD FLAKITO White/Meagan JOB# [id number] cc:[facility] Normal [facility] Operative Reporton 0 Operative Report MR#: [id number] [facility] Pt. Name: Seth Murphy Room #: [...] was consented and brought to the laborer syrup machine. The patient was placed in supine position. [...] Amaro MD Date Trans: 06/04/2019 01:35 P/mmo [id number] cc: Nav Alejo M.D. [address] [id number] [place] Vital Signs Date Time Vital Sign Value Performing Clinician Facility 10-31-2023 14:30-0400 Diastolic blood pressure 72 mm[Hg] MD Nav Alejo Work Phone: [facility] 10-31-2023 14:30-0400 Heart rate 98 /min MD Nav Alejo Work Phone: [facility] 10-31-2023 14:30-0400 Respiratory rate 16 /min MD Nav Alejo Work Phone: [facility] 10-31-2023 14:30-0400 SaO2% (BldA) [Mass fraction] 98 % MD Nav Alejo Work Phone: [facility] 10-31-2023 14:30-0400 Systolic blood pressure 160 mm[Hg] MD Nav Alejo Work Phone: [facility] 10-31-2023 11:47-0400 Body height 177.8 cm MD Nav Alejo Work Phone: [facility] 10-31-2023 11:47-0400 Body temperature 98 [degF] MD Nav Alejo Work Phone: [facility] 10-31-2023 11:47-0400 Body weight 93 kg MD Nav Alejo Work Phone: [facility] 09-02-2023 16:25-0400 Respiratory rate 18 /min MD Nav Alejo Work Phone: [facility] 09-02-2023 15:29-0400 Body temperature 98.4 [degF] MD Nav Alejo Work Phone: [facility] 09-02-2023 15:29-0400 Diastolic blood pressure 80 mm[Hg] MD Nav Alejo Work Phone: [facility] 09-02-2023 15:29-0400 Heart rate 61 /min MD Nav Alejo Work Phone: [facility] 09-02-2023 15:29-0400 SaO2% (BldA) [Mass fraction] 96 % MD Nav Alejo Work Phone: [facility] 09-02-2023 15:29-0400 Systolic blood pressure 135 mm[Hg] MD Nav Alejo Work [facility] [facility] 09-[facility]23 05:28-0400 Body weight 100.1 kg MD Nav Alejo Work Phone: [facility] 08-29-2023 13:56-0400 Body height 180.34 cm MD Nav Alejo Work Phone: [facility] 06-26-2023 14:04-0400 Body temperature 98.8 [degF] MD Nav Alejo Work Phone: [facility] 06-26-2023 14:04-0400 Diastolic blood pressure 72 mm[Hg] MD Nav Alejo Work Phone: [facility] 06-26-2023 14:04-0400 Respiratory rate 18 /min MD Nav Alejo Work Phone: [facility] 06-26-2023 14:04-0400 SaO2% (BldA) [Mass fraction] 96 % MD Nav Alejo Work Phone: [facility] 06-26-2023 14:04-0400 Systolic blood pressure 122 mm[Hg] MD Nav Alejo Work Phone: [facility] 06-26-2023 13:55-0400 Heart rate 42 /min MD Nav Alejo Work Phone: [facility] 06-26-2023 05:53-0400 Body weight 97.5 kg MD Nav Alejo Work Phone: [facility] 06-25-2023 12:27-0400 Inhaled oxygen flow rate 8 L/min MD Nav Alejo Work Phone: [facility] 06-25-2023 10:25-0400 Body height 177.8 cm MD Nav Alejo Work Phone: [facility] 06-25-2023 10:25-0400 Body mass index (BMI) [Ratio] 29.5 kg/m2 MD Nav Alejo Work Phone: [facility] 06-21-2023 21:58-0400 Body temperature 99.9 [degF] MD Nav Alejo Work Phone: [facility] 06-21-2023 21:58-0400 Diastolic blood pressure 52 mm[Hg] MD Nav Alejo Work Phone: [facility] 06-21-2023 21:58-0400 Heart rate 84 /min MD Nav Alejo Work Phone: [facility] 06-21-2023 21:58-0400 Respiratory rate 16 /min MD Nav Alejo Work Phone: [facility] 06-21-2023 21:58-0400 SaO2% (BldA) [Mass fraction] 100 % MD Nav Alejo Work Phone: [facility] 06-21-2023 21:58-0400 Systolic blood pressure 100 mm[Hg] MD Nav Alejo Work Phone: [facility] 06-21-2023 18:28-0400 Body height 177.8 cm MD Nav Alejo Work Phone: [facility] 06-21-2023 18:28-0400 Body weight 92.6 kg MD Nav Alejo Work Phone: [facility] 05-09-2023 13:12-0400 Body height 177.8 cm MD Nav Alejo Work Phone: [facility] 05-09-2023 13:12-0400 Body mass index (BMI) [Ratio] 36.4 kg/m2 MD Nav Alejo Work Phone: [facility] 05-09-2023 13:12-0400 Body temperature 97.3 [degF] MD Nav Alejo Work Phone: [facility] 05-09-2023 13:12-0400 Body weight 115.21 kg MD Nav Alejo Work Phone: [facility] 05-09-2023 13:12-0400 Diastolic blood pressure 69 mm[Hg] MD Nav Alejo Work Phone: [facility] 05-09-2023 13:12-0400 Heart rate 69 /min MD Nav Alejo Work Phone: [facility] 05-09-2023 13:12-0400 Systolic blood pressure 98 mm[Hg] MD Nav Alejo Work Phone: [facility] 04-16-2023 08:21-0500 Body temperature 98.3 [degF] MD Nav Alejo Work Phone: [facility] 04-16-2023 08:21-0500 Diastolic blood pressure 71 mm[Hg] MD Nav Alejo Work Phone: [facility] 04-16-2023 08:21-0500 Heart rate 85 /min MD Nav Alejo Work Phone: [facility] 04-16-2023 08:21-0500 Respiratory rate 18 /min MD Nav Alejo Work Phone: [facility] 04-16-2023 08:21-0500 SaO2% (BldA) [Mass fraction] 96 % MD Nav Alejo Work Phone: [facility] 04-16-2023 08:21-0500 Systolic blood pressure 135 mm[Hg] MD Nav Alejo Work Phone: [facility] 04-16-2023 06:00-0500 Body weight 115.6 kg MD Nav Alejo Work Phone: [facility] 04-15-2023 15:06-0500 Body height 177.8 cm MD Nav Alejo Work Phone: [facility] 01-31-2023 09:47-0500 Body height 177.8 cm Seth Ying DO Work Phone: [facility] 01-31-2023 09:47-0500 Body mass index (BMI) [Ratio] 29.41 kg/m2 Seth Ying DO Work Phone: [facility] 01-31-2023 09:47-0500 Body weight 92.99 kg Seth Ying DO Work Phone: [facility] 01-31-2023 09:47-0500 Diastolic blood pressure 62 mm[Hg] Seth Ying DO Work Phone: [facility] 01-31-2023 09:47-0500 Heart rate 76 /min Seth Ying DO Work Phone: [facility] 01-31-2023 09:47-0500 Systolic blood pressure 122 mm[Hg] Seth Ying DO Work Phone: [facility] 08-09-2022 14:15-0400 Body height 180.34 cm Alfredo Acosta Other [employer] Other 08-09-2022 14:15-0400 Body mass index (BMI) [Ratio] 28.73 kg/m2 Alfredo Acosta Other [employer] Other 08-09-2022 14:15-0400 Body temperature 97.3 [degF] Alfredo Acosta Other [employer] Other 08-09-2022 14:15-0400 Body weight 93.44 kg Alfredo Acosta Other [employer] Other 08-09-2022 14:15-0400 Diastolic blood pressure 62 mm[Hg] Alfredo Acosta Other [employer] Other 08-09-2022 14:15-0400 Systolic blood pressure 99 mm[Hg] Alfredo Acosta Other [employer] Other 07-30-2022 09:03-0400 Blood Pressure Location Greg Alarcon [facility] 07-30-2022 09:03-0400 Diastolic blood pressure 60 mm[Hg] Greg Alarcon [facility] 07-30-2022 09:03-0400 Heart rate 77 /min Greg Alarcon [facility] 07-30-2022 09:03-0400 SaO2% (BldA) [Mass fraction] 98 % Greg Harveyan [facility] 07-30-2022 09:03-0400 Systolic blood pressure 110 mm[Hg] Greg Harveyan [facility] [place] 07-12-2022 13:24-0400 Blood Pressure Location Greg Harveyan [facility] [place] 07-12-2022 13:24-0400 Diastolic blood pressure 62 mm[Hg] Greg Alarcon [facility] [place] 07-12-2022 13:24-0400 Heart rate 94 /min Greg Alarcon [facility] [place] 07-12-2022 13:24-0400 SaO2% (BldA) [Mass fraction] 97 % Greg Alarcon [facility] [place] 07-12-2022 13:24-0400 Systolic blood pressure 94 mm[Hg] Greg Alarcon [facility] [place] 07-09-2022 19:00-0400 Diastolic blood pressure 65 mm[Hg] [facility] 07-09-2022 19:00-0400 Heart rate 74 /min [facility] 07-09-2022 19:00-0400 Mean blood pressure 80 mm[Hg] [facility] 07-09-2022 19:00-0400 Respiratory rate 17 /min [facility] 07-09-2022 19:00-0400 Systolic blood pressure 110 mm[Hg] [facility] 07-09-2022 18:30-0400 Heart rate 75 /min [facility] 07-09-2022 18:30-0400 Respiratory rate 23 /min [facility] 07-09-2022 18:00-0400 Diastolic blood pressure 60 mm[Hg] [facility] 07-09-2022 18:00-0400 Heart rate 79 /min [facility] 07-09-2022 18:00-0400 Mean blood pressure 73 mm[Hg] [facility] 07-09-2022 18:00-0400 Respiratory rate 11 /min [facility] 07-09-2022 18:00-0400 SaO2% (BldA) [Mass fraction] 96 % [facility] 07-09-2022 18:00-0400 Systolic blood pressure 98 mm[Hg] [facility] 07-09-2022 17:30-0400 Diastolic blood pressure 55 mm[Hg] [facility] 07-09-2022 17:30-0400 Mean blood pressure 67 mm[Hg] [facility] 07-09-2022 17:30-0400 SaO2% (BldA) [Mass fraction] 98 % [facility] 07-09-2022 17:30-0400 Systolic blood pressure 90 mm[Hg] [facility] 07-09-2022 17:25-0400 Body temperature 98.06 [degF] [facility] 07-09-2022 17:25-0400 Heart rate 95 /min [facility] 07-09-2022 17:25-0400 Respiratory rate 16 /min [facility] 07-09-2022 17:25-0400 SaO2% (BldA) [Mass fraction] 98 % [facility] 03-15-2022 11:05-0500 Blood Pressure Location Greg Dorian [facility] [place] 03-15-2022 11:05-0500 Diastolic blood pressure 50 mm[Hg] Greg Alarcon [facility] 03-15-2022 11:05-0500 Heart rate 75 /min Greg Alarcon [facility] 03-15-2022 11:05-0500 SaO2% (BldA) [Mass fraction] 98 % Greg Alarcon [facility] [place] 03-15-2022 11:05-0500 Systolic blood pressure 90 mm[Hg] Greg Alarcon [facility] 01-11-2022 11:29-0500 Body height 177.8 cm Nav M Hoy Work Phone: [facility] [address] DO Work Phone: 01-11-2022 11:29-0500 Body mass index (BMI) [Ratio] 32.71 kg/m2 Nav M Hoy Work Phone: [facility] [address] DO Work Phone: 01-11-2022 11:29-0500 Body surface area Derived from formula 2.21 m2 Nav M Hoy Work Phone: [facility] [facility] DO Work Phone: 01-11-2022 11:29-0500 Body weight 103.42 kg Nav M Hoy Work Phone: [facility] [address] DO Work Phone: 01-11-2022 11:29-0500 Diastolic blood pressure 60 mm[Hg] Nav M Hoy Work Phone: [facility] [facility] DO Work Phone: 01-11-2022 11:29-0500 Heart rate 80 /min Nav M Hoy Work Phone: [facility] DO Work Phone: 01-11-2022 11:29-0500 Systolic blood pressure 98 mm[Hg] Nav M Hoy Work Phone: [facility] [facility] DO Work Phone: 11-02-2021 12:32-0400 Blood Pressure Location Greg Alarcon [facility] [place] 11-02-2021 12:32-0400 Body temperature 97.7 [degF] Greg Alarcon [facility] 11-02-2021 12:32-0400 Diastolic blood pressure 63 mm[Hg] Greg Alarcon [facility] 11-02-2021 12:32-0400 Heart rate 72 /min Greg Harveyan [facility] 11-02-2021 12:32-0400 Respiratory rate 16 /min Greg Alarcon [facility] 11-02-2021 12:32-0400 SaO2% (BldA) [Mass fraction] 96 % Greg Alarcon [facility] [place] 11-02-2021 12:32-0400 Systolic blood pressure 105 mm[Hg] Greg Harveyan [facility] 10-26-2021 14:53-0400 Blood Pressure Location Greg Alarcon [facility] 10-26-2021 14:53-0400 Diastolic blood pressure 66 mm[Hg] Greg Alarcon [facility] 10-26-2021 14:53-0400 Heart rate 82 /min Greg Alarcon [facility] 10-26-2021 14:53-0400 SaO2% (BldA) [Mass fraction] 97 % Greg Alarcon [facility] [place] 10-26-2021 14:53-0400 Systolic blood pressure 107 mm[Hg] Greg Alarcon [facility] 07-13-2021 11:47-0400 Body height 177.8 cm Nav Falcon [employer] Work Phone: [facility] [place] [address] DO Work Phone: 07-13-2021 11:47-0400 Body mass index (BMI) [Ratio] 32.14 kg/m2 Nav Ezekiel [employer] Work Phone: [facility] [place] [address] DO Work Phone: 07-13-2021 11:47-0400 Body surface area Derived from formula 2.19 m2 Nav Falcon Hoy Work Phone: [facility] DO Work Phone: 07-13-2021 11:47-0400 Body weight 101.61 kg Nav Faclon Hoy Work Phone: [facility] [facility] DO Work Phone: 07-13-2021 11:47-0400 Diastolic blood pressure 76 mm[Hg] Nav Falcon Hoy Work Phone: [facility] [facility] DO Work Phone: 07-13-2021 11:47-0400 Heart rate 66 /min Nav Falcno Hoy Work Phone: [facility] [facility] DO Work Phone: 07-13-2021 11:47-0400 Systolic blood pressure 112 mm[Hg] Nav Falcon Hoy Work Phone: [facility] [facility] DO Work Phone: Encounters Encounter Date Encounter Type Care Provider Facility Start: 10-31-2023 End: 10-31-2023 Emergency department patient visit MD Nav Alejo Work Phone: [facility]-Emergency Room Work Phone: Start: 10-18-2023 Non-patient / Non-visit MD Adolfo Alejo Work Phone: [facility] Work Phone: Start: 10-05-2023 Non-patient / Non-visit MD Adolfo Alejo Work Phone: [facility] Work Phone: Start: 10-04-2023 End: 10-04-2023 Evaluation and management of inpatient [facility] Start: 10-01-2023 End: 10-04-2023 Evaluation and management of inpatient [facility] Start: 10-01-2023 End: 10-01-2023 Evaluation and management of inpatient [facility] Start: 09-30-2023 Non-patient / Non-visit MD Adolfo Alejo Work Phone: [facility] Work Phone: Start: 09-23-2023 Non-patient / Non-visit MD Adolfo Alejo Work Phone: [facility] Work Phone: Start: 09-19-2023 End: 09-19-2023 ambulatory MD Nav Alejo Work Phone: [facility] Work Phone: Start: 09-19-2023 End: 09-19-2023 Departed Referred MD Nav Alejo Work Phone: [facility]-LAB Path [facility] Start: 09-04-2023 Non-patient / Non-visit MD Adolfo Alejo Work Phone: [facility] Work Phone: Start: 09-02-2023 Non-patient / Non-visit MD Adolfo Alejo Work Phone: [facility] Physician [facility] Nephrology Work Phone: Start: 08-30-2023 Non-patient / Non-visit MD Adolfo Alejo Work Phone: [facility] Physician [facility] Vascular Surgery Work Phone: Start: 08-29-2023 End: 08-29-2023 ambulatory ROMEO POP Not Available Start: 08-27-2023 End: 08-27-2023 ambulatory ROMEO POP Not Available Start: 08-26-2023 Non-patient / Non-visit MD Adolfo Alejo Work Phone: [facility] Physician [facility] Nephrology Work Phone: Start: 08-26-2023 Non-patient / Non-visit MD Adolfo Alejo Work Phone: [facility] Physician [facility] Infectious Disease Work Phone: Start: 08-25-2023 End: 09-02-2023 Evaluation and management of inpatient MD Nav Alejo Work Phone: [facility] Work Phone: Start: 08-05-2023 Non-patient / Non-visit MD Adolfo Alejo Work Phone: [facility] Work Phone: Start: 08-01-2023 End: 08-01-2023 ambulatory FELISA H WIN Not Available Start: 07-16-2023 End: 07-16-2023 ambulatory FELISA H WIN Not Available Start: 07-08-2023 Non-patient / Non-visit MD Adolfo Alejo Work Phone: [facility] Work Phone: Start: 07-04-2023 End: 07-04-2023 ambulatory FELISA H WIN Not Available Start: 06-24-2023 End: 06-25-2023 Non-patient / Non-visit MD Nav Alejo Work Phone: [facility] Physician [facility] Infectious Disease Work Phone: Start: 06-22-2023 End: 06-26-2023 Non-patient / Non-visit MD Nav Alejo Work Phone: [facility] Physician [facility] Nephrology Work Phone: Start: 06-21-2023 End: 06-26-2023 Evaluation and management of inpatient MD Nav Alejo Work Phone: [facility] [place] [facility] Work Phone: Start: 06-18-2023 End: 06-19-2023 ambulatory Greg Alarcon Facility:[facility] Start: 06-18-2023 End: 06-18-2023 Patient encounter procedure Greg Alarcon [facility] Start: 06-05-2023 Non-patient / Non-visit MD Adolfo Alejo Work Phone: [facility] Physician [facility] Work Phone: Start: 05-27-2023 End: 05-28-2023 ambulatory Greg Alarcon Facility:[facility] Start: 05-27-2023 End: 05-27-2023 Patient encounter procedure Greg Alarcon [facility] Start: 05-09-2023 End: 05-09-2023 ambulatory MD Nav Alejo Work Phone: [facility] Work Phone: Start: 05-09-2023 End: 05-09-2023 Patient encounter procedure MD Nav Alejo Work Phone: [facility] Physician [facility] Infectious Disease Work Phone: Start: 05-05-2023 Non-patient / Non-visit MD Adolfo Alejo Work Phone: [facility] Physician [facility] Work Phone: Start: 04-23-2023 Non-patient / Non-visit MD Adolfo Alejo Work Phone: [facility] Physician [facility] Work Phone: Start: 04-10-2023 Non-patient / Non-visit MD Adolfo Alejo Work Phone: [facility] Physician [facility] Vascular Surgery Work Phone: Start: 04-10-2023 Non-patient / Non-visit MD Adolfo Alejo Work Phone: [facility] Physician [facility] Nephrology Work Phone: Start: 04-10-2023 Non-patient / Non-visit MD Adolfo Alejo Work Phone: [facility] Physician [facility] Infectious Disease Work Phone: Start: 04-09-2023 Non-patient / Non-visit MD Adolfo Alejo Work Phone: [facility] Physician [facility] Med OutPt Work Phone: Start: 04-09-2023 End: 04-16-2023 Evaluation and management of inpatient MD Nav Alejo Work Phone: [facility] [place] [facility] Work Phone: Start: 04-06-2023 Non-patient / Non-visit MD Adolfo Alejo Work Phone: [facility] Physician [facility] Work Phone: Start: 03-15-2023 ambulatory [facility] Start: 03-15-2023 End: 03-16-2023 ambulatory [facility] Start: 02-06-2023 ambulatory [facility] Start: 01-31-2023 End: 01-31-2023 ambulatory Critical access hospital Ambulatory Start: 01-31-2023 End: 01-31-2023 Office outpatient visit 15 minutes [facility] DO Work Phone: [facility] Comment on above: Arteriosclerotic hea rt disease; S/P PTCA (percutaneous transluminal coronary angioplasty); ESRD (end stage renal disease) on dialysis ([facility]); Diabetes mellitus of other type without complication, unspecified whether detention insulin use ([facility]); Essential hypertension; Hyperlipidemia, unspecified hyperlipidemia type; Never smoked any substance Start: 01-18-2023 Encounter for other preprocedural examination [facility] Start: 01-18-2023 End: 01-18-2023 ambulatory [facility] Start: 01-16-2023 Encounter for other preprocedural examination [facility] Start: 01-15-2023 End: 01-15-2023 ambulatory GREG ALARCON [facility] Start: 01-09-2023 End: 01-10-2023 ambulatory ROSANNE GAMEZ [facility] Start: 10-16-2022 ambulatory ROSANNE [facility] Start: 10-02-2022 End: 10-02-2022 ambulatory GREG ALARCON [facility] Start: 08-16-2022 End: 08-17-2022 ambulatory Greg HopeElodia Alarcon Facility:[facility] Start: 08-16-2022 End: 08-16-2022 Patient encounter procedure Greg HerminiaElodia Alarcon [facility] Start: 08-15-2022 Rx Renewal Nav Alejo Work Phone: [facility] [address] DO Work Phone: Start: 08-09-2022 End: 08-09-2022 ambulatory Alfredo Acosta Other [facility] [employer] Other Start: 08-09-2022 Office outpatient vi sit 25 minutes Alfredo Acosta [facility] Infectious Disease Start: 07-30-2022 End: 07-31-2022 ambulatory Greg HerminiaElodia Dorian Facility:[facility] Start: 07-30-2022 End: 07-30-2022 Patient encounter procedure Luisanakeenan HopeElodia Dorian [facility] Start: 07-18-[address] Nav Alejo Facility: Start: 07-12-2022 End: 07-20-2022 Evaluation and management of inpatient Fuentes Rodriguez Facility:[facility] Start: 07-12-2022 End: 07-13-2022 ambulatory Greg HerminiaElodia Dorian Facility:[facility] Start: 07-12-2022 End: 07-17-2022 Pre-admission assessment Greg Alarcon [facility] Start: 07-12-2022 End: 07-12-2022 Patient encounter procedure Greg Alarcon [facility] Start: 07-09-2022 End: 07-09-2022 Emergency department patient visit Adam Weinberg Facility:[facility] Start: 07-09-2022 End: 07-09-2022 Emergency department patient visit Adam Weinberg [facility] Start: 07-02-2022 End: 07-03-2022 ambulatory Greg Alarcon Facility:[facility] Start: 06-29-2022 End: 06-29-2022 Emergency department patient visit Reji Azar Facility:[facility] Start: 06-26-[address] NAV ALEJO . Facili ty:[facility] Start: 06-05-2022 End: 06-06-[address] NAV ALEJO . Facility:[facility] Start: 05-17-2022 ambulatory UNKNOWN PROVIDER Facili ty:[facility] Start: 05-09-2022 End: 05-09-[address] NAV ALEJO . Facility:[facility] Start: 05-08-2022 End: 05-09-2022 [facility] Start: 04-12-2022 End: 04-13-2022 ambulatory MARANDA TAYLOR Facility:[facility] Start: 03-20-2022 End: 03-21-2022 ambulatory LAUREN Herrera [facility] Facility:[facility] Start: 03-15-2022 End: 03-15-2022 Admission to same day surgery center Greg Alarcon [facility] Start: 03-15-2022 End: 03-15-2022 Patient encounter procedure ASHOK ALARCON [facility] Start: 03-15-2022 End: 03-15-2022 Patient encounter procedure Greg Alarcon [facility] Start: 03-06-2022 End: 03-07-2022 ambulatory MARANDA TAYLOR Facility:[facility] Start: 02-27-2022 End: 02-28-[address] NAV ALEJO . Facility:[facility] Start: 02-15-2022 End: 02-16-2022 ambulatory NATHEN LUCIA Facility:[facility] Start: 01-11-2022 End: 01-11-[address] NAV ALEJO . Facility:[facility] Start: 01-11-2022 Office outpatient vi sit 15 minutes Nav Falcon Melo Work Phone: [facility] [facility] DO Work Phone: Start: 01-11-[address] Seth Ying Facility: Start: 11-02-2021 End: 11-02-2021 Admission to same day surgery center [facility] Jessica Alarcon [facility] Start: 10-26-2021 End: 10-26-2021 [facility] Start: 10-25-2021 Rx Renewal Nav Alejo Work Phone: [facility] 250 DO Work Phone: Start: 08-28-2021 End: 08-28-2021 ambulatory NYLA MOTA . Facility:[facility] Start: 07-13-2021 Office outpatient vi sit 15 minutes Nav Ezekiel Alejo Work Phone: [facility] 250 DO Work Phone: Start: 06-04-2019 End: 06-05-2019 Patient encounter procedure NAV ALEJO Facility:[facility] Procedures Date Procedure Procedure Detail Performing Clinician Start: 10-31-2023 Plain chest X-ray MD Valerio Work Phone: Start: 08-30-2023 Insertion of periphe rally inserted [...] [Enzymatic activity/volume] in Serum or Plasma SETH STEPAN Start: 01-31-2023 Lipid panel SETH ZHENG Start: 01-31-2023 Alanine aminotransfe rase [Enzymatic activity/volume] in Serum or Plasma SETH YING Start: 07-16-2022 Arteriovenous fistul a (morphologic abnormality) [facility] Start: 07-02-2022 Insertion of hemodia lysis catheter Adam Barakatangel Start: 03-15-2022 Fistulography with contrast [facility] Start: 11-02-2021 Fluoroscopic fistulography [email or web address] Start: 08-04-2020 Fistulography with contrast [email or web address] Start: 07-07-2020 Removal of catheter [facility] Comment on above: removal of hemodialy sis catheter removal of hemodialy sis catheter Start: 06-16-2020 Coagulation factor X I (substance) [facility] Comment on above: TECHNICAL BUSINESS ANALYST of Left Fistula TECHNICAL BUSINESS ANALYST of Left Fistula Start: 03-31-2020 Arteriovenous fistulization [facility] Start: 08-06-2019 AV fistula recircula tion (observable entity) [facility] Comment on above: creation of av fistu la of left arm. creation of av fistu la of left arm. Cardiac catheterization Enoch Alejo Work Phone: Cholecystectomy Nav esparza Work Phone: Cholecystectomy Greg Osma n Colonoscopy Nav Alejo Work Phone: H/O: tracheostomy Greg Os man Hernia of abdominal cavity (disorder) Greg Dorian History of percutane ous transluminal coronary angioplasty History of PTCA Nav Alejo Work Phone: Placement of stent i n cardiac conduit Greg Harveyan Renal lithotripsy Nav Alejo Work Phone: Revision of vascular procedure Nav Alejo Work Phone: Surgical procedure Nav Alejo Work Phone: Comment on above: Sclerosing Multiple Veins By Injection - One Leg; Tonsillectomy and adenoidectomy Nav Alejo Work Phone: Vasectomy Nav Alejo Work Phone: Comment on above: Surgery Vas Deferens Vasectomy; Plan of Treatment Date Care Activity Detail Author Start: 09-19-2023 [facility] Start: 09-02-2023 [facility] Start: 08-29-2023 Administration of prophylactic treatment [facility] Start: 08-25-2023 Referral to editor dictionary [facility] Start: 08-25-2023 Hospital admission [facility] Start: 08-25-2023 Referral to infectious diseases physician [facility] Start: 08-25-2023 Referral to pharmacy buyer [facility] Start: 08-25-2023 Excision of Right Foot Subcutaneous Tissue and Fascia, Open Approach Excision of Right Foot Subcutaneous Tissue and Fascia, Open Approach [facility] Start: 08-25-2023 Excision of Right Metatarsal, Percutaneous Approach, Diagnostic Excision of Right Metatarsal, Percutaneous Approach, Diagnostic [facility] Start: 08-25-2023 Insertion of Infusion Device into Left Subclavian Vein, Percutaneous Approach Insertion of Infusion Device into Left Subclavian Vein, Percutaneous Approach [facility] Start: 08-25-2023 Performance of Urinary Filtration, Intermittent, Less than 6 Hours Per Day Performance of Urinary Filtration, Intermittent, Less than 6 Hours Per Day [facility] Start: 06-26-2023 End: 06-26-2023 [facility] Start: 06-25-2023 [facility] Start: 06-24-2023 [facility] Start: 06-23-2023 [facility] Start: 06-22-2023 [facility] Start: 06-21-2023 Referral to editor dictionary [facility] Start: 06-21-2023 Referral to pharmacy buyer [facility] Start: 06-21-2023 Referral to infectious diseases physician [facility] Start: 06-21-2023 Hospital admission [facility] Start: 06-21-2023 End: 06-21-2023 [facility] Start: 06-21-2023 Bacteria identified in Blood by Culture [facility] Start: 06-21-2023 Detachment at Left Foot, Partial 1st Ray, Open Approach Detachment at Left Foot, Partial 1st Ray, Open Approach [facility] Start: 06-21-2023 Performance of Urinary Filtration, Intermittent, Less than 6 Hours Per Day Performance of Urinary Filtration, Intermittent, Less than 6 Hours Per Day [facility] Start: 04-16-2023 [facility] Start: 04-15-2023 Insertion of peripherally inserted central catheter [facility] Start: 04-10-2023 Referral to infectious diseases physician [facility] Start: 04-09-2023 Referral to editor dictionary [facility] Start: 04-09-2023 Referral to vascular surgeon [facility] Start: 04-09-2023 Referral to pharmacy buyer [facility] Start: 04-09-2023 Hospital admission [facility] Start: 04-09-2023 Fluoroscopy of Left Upper Extremity Veins using Low Osmolar Contrast Fluoroscopy of Left Upper Extremity Veins using Low Osmolar Contrast [facility] Start: 04-09-2023 Insertion of Infusion Device into Upper Vein, Percutaneous Approach Insertion of Infusion Device into Upper Vein, Percutaneous Approach [facility] Start: 04-09-2023 Inspection of Upper Vein, Percutaneous Approach Inspection of Upper Vein, Percutaneous Approach [facility] Start: 04-09-2023 Performance of Urinary Filtration, Intermittent, Less than 6 Hours Per Day Performance of Urinary Filtration, Intermittent, Less than 6 Hours Per Day [facility] Start: 04-09-2023 Removal of Infusion Device from Upper Vein, External Approach Removal of Infusion Device from Upper Vein, External Approach [facility] Start: 01-31-2023 End: 02-01-2024 Alanine aminotransferase [Enzymatic activity/volume] in Serum or Plasma by With P-5'-P Alanine Aminotransferase Lab Routine Arteriosclerotic heart disease Essential hypertension Hyperlipidemia, unspecified hyperlipidemia type Expected: 01/31/2023 (Approximate), Expires: 02/01/2024 [facility] Service Area Work Phone: Comment on above: Expected: 01/31/2023 (Approximate), Expi res: 02/01/2024 Start: 01-31-2023 End: 02-01-2024 Aspartate aminotransferase [Enzymatic activity/volume] in Serum or Plasma by With P-5'-P Aspartate Aminotransferase Lab Routine Arteriosclerotic heart disease Essential hypertension Hyperlipidemia, unspecified hyperlipidemia type Expected: 01/31/2023 (Approximate), Expires: 02/01/2024 [facility] Work Phone: Comment on above: Expected: 01/31/2023 (Approximate), Expi res: 02/01/2024 Start: 01-31-2023 End: 02-01-2024 Lipid 1996 panel - Serum or Plasma Lipid Panel Lab Routine Arteriosclerotic heart disease Essential hypertension Hyperlipidemia, unspecified hyperlipidemia type Expected: 01/31/2023 (Approximate), Expires: 02/01/2024 [facility] Work Phone: Comment on above: Expected: 01/31/2023 (Approximate), Expi res: 02/01/2024 Start: 01-15-2023 FUV, Provider: Seth Ying, Status: Pen, Time: 10:10 AM FUV, Provider: Seth Ying, Status: Pen, Time: 10:10 AM [facility] 250 DO Work Phone: Start: 10-12-2022 Influenza vaccination Influenza Vaccine (#1) [facility] Start: 01-11-2022 FUV, Provider: Seth Ying, Status: Phani, Time: 11:10 AM FUV, Provider: Seth Ying, Status: Phani, Time: 11:10 AM -[facility] DO Work Phone: Start: 10-20-2021 Echocardiography Echocardiogram [facility] Start: 03-28-2021 COVID-19 Vaccine (4 - Pfizer series) COVID-19 Vaccine (4 - Pfizer series) [facility] Start: 11-21-2005 Zoster Vaccines (1 of 2) Zoster Vaccines (1 of 2) [facility] Start: 11-21-1977 DTaP/Tdap/Td Vaccines (1 - Tdap) DTaP/Tdap/Td Vaccines (1 - Tdap) [facility] Start: 11-21-1974 Urine screening for protein Diabetes: Urine Protein Screening [facility] Start: 11-21-1973 Hepatitis C screening Hepatitis C Screening [facility] Start: 11-21-1965 Diabetic foot examination Diabetes: Foot Exam [facility] Start: 11-21-1965 Glaucoma screening Diabetes: Retinopathy Screening [facility] Start: 11-21-1961 Pneumococcal Vaccine: 65+ Years (1 - PCV) Pneumococcal Vaccine: 65+ Years (1 - PCV) [facility] Start: 1955 Creatinine measurement Creatinine Level [facility] Start: 1955 Hemoglobin A1c measurement Diabetes: Hemoglobin A1C [facility] Start: 1955 Lipid panel Lipid Panel [facility] Start: 1955 Medicare Annual Wellness Visit Medicare Annual Wellness Visit (AWV) [facility] Start: 1955 Potassium measurement Potassium Level [facility] Start: 1955 Screening for malignant neoplasm of colon [facility] Start: 1955 Thyroid stimulating hormone measurement TSH Level [facility] Patient Education [facility] Work Phone: Patient referral [facility] Work Phone: Immunizations Immunization Date Immunization Notes Care Provider Fa ciligill 01-31-2021 Pfizer-BioNTech COVID-19 Vacc 30 MCG/0.3ML Intramuscular Suspension [facility] Work [facility]: 07-26-2020 Pfizer-BioNTech COVID-19 Vacc 30 MCG/0.3ML Intramuscular Suspension [facility] Work Phone: 07-05-2020 Pfizer-BioNTech COVID-19 Vacc 30 MCG/0.3ML Intramuscular Suspension Nav Alejo Work Phone: [facility] Payers Date Payer Category Payer Self-pay [id number] 2023 Unknown [id number] 2019 Medicare MEDICARE MEDICAR E PART A AND B [id number] 2019-Present [address] [place] [address] [id number] 2018 Unknown [id number] 2015 Unknown [id number] 1959 Medicare [id number] 1955 Unknown [id number] 2.16.840.1.013543.3.579.2.647 1955 Unknown [id number] 2.16.840.1.852827.3.579.2.732 1955 Unknown [id number] 2.16.840.1.126607.3.579.2.593 1955 Unknown [id number] 2.16.840.1.254114.3.579.2.593 1955 Unknown [id number] 2.16.840.1.219366.3.579.2.593 1955 Unknown [id number] 2.16.840.1.283382.3.579.2.593 1955 Unknown [id number] 2.16.840.1.426404.3.579.2.593 1955 Unknown [id number] 2.16.840.1.434470.3.579.2.593 1955 Unknown [id number] 2.16.840.1.519301.3.579.2.593 1955 Unknown [id number] 2.16.840.1.069746.3.579.2.593 1955 Unknown [id number] 2.16.840.1.777637.3.579.2.593 1955 Unknown [id number] 2.16.840.1.766472.3.579.2.593 1955 Unknown [id number] 2.16.840.1.914052.3.579.2.593 1955 Unknown [id number] 2.16.840.1.310355.3.579.2.356 1955 Unknown [id number] 2.16.840.1.633156.3.579.2.356 1955 Unknown [id number] 2.16.840.1.127106.3.579.2.1244 1955 Unknown [id number] 2.16.840.1.226184.3.579.2.727 1955 Unknown [id number] 2.16.840.1.782333.3.579.2.727 1955 Unknown [id number] 2.16.840.1.804622.3.579.2.727 1955 Unknown [id number] 2.16.840.1.721957.3.579.2.727 1955 Unknown [id number] 2.16.840.1.046845.3.579.2.727 1955 Unknown [id number] 2.16.840.1.930892.3.579.2.727 1955 Unknown [id number] 2.16.840.1.998479.3.579.2.727 1955 Unknown [id number] 2.16.840.1.509563.3.579.2.727 1955 Unknown [id number] 2.16.840.1.241801.3.579.2.727 1955 Unknown [id number] 2.16.840.1.022387.3.579.2.1259 1955 Unknown [id number] 2.16.840.1.295089.3.579.2.1259 1955 Unknown [id number] 2.16.840.1.634687.3.579.2.1259 1955 Unknown [id number] 2.16.840.1.915090.3.579.2.1259 1955 Unknown [id number] 2.16.840.1.868065.3.579.2.1259 1955 Unknown [id number] 2.16.840.1.002698.3.579.2.1286 1955 Unknown [id number] 2.16.840.1.965202.3.579.2.1286 1955 Unknown [id number] 2.16.840.1.420914.3.579.2.1286 1955 Unknown [id number] 2.16.840.1.560185.3.579.2.1286 Unknown Unknown [id number] 2.16.840.1.350542.3.579.2.531 Social History Date Type Detail [facility] Start: 1955 Sex Assigned At Male F [facility] Start: 01-31-2023 Caffeine use Caffeine use [facility] 250 DO Work Phone: Comment on above: 2-3 times weekly- Co ffee. 1 pop daily; Start: 07-07-2020 End: 10-31-2023 Never smoked tobacco (finding) [facility] Start: 01-31-2023 Male [facility] Tobacco smoking status Never [facility] Tobacco [facility] Comment on above: denies Tobacco smoking status No Smokin g Status Entered [facility] Start: 01-31-2023 Tobacco use and exposure Smokeless tobacco non-user [facility] Work Phone: Start: 01-31-2023 Alcohol intake Lifetime non-d carl (finding) [facility] Work Phone: Start: 1955 Sex Assigned At Not on file U [facility] Work Phone: Start: 01-21-2023 End: 01-31-2023 Exposure to SARS-CoV-2 (event) Not sure [facility] Medical Equipment Procedure Code Equipment Code [...] status Patient is Pro gressing Toward Baseline [facility] Work Phone: 06-26-2023 Functional status Patient is Pro gressing Toward Baseline [facility] Work Phone: 05-27-2023 Functional Status No [facility] 04-16-2023 Functional status Patient at Baseline [facility] Work Phone: 07-30-2022 Functional Status No [facility] 07-12-2022 Functional Status No [facility] 07-09-2022 Functional Status N/A [facility] 03-15-2022 Functional Status N/A [facility] 03-15-2022 Functional Status No [facility] 11-02-2021 Functional Status N/A [facility] 10-26-2021 No [facility] Mental Status Date Assessment Result Facility 09-02-2023 Cognitive function Cognitive Sta tus Patient at Baseline [facility] Work Phone: 06-26-2023 Cognitive function Cognitive Sta tus Patient at Baseline [facility] Work Phone: 04-16-2023 Cognitive function Cognitive Sta tus Patient at Baseline [facility] Work Phone: Clinical Notes 11-02-2021 to 09-02-2023 Note Date & Type Note Facility 09-02-2023 Progress note Note Date/Time September 02, 2023 7:47am [facility] [address] [place] [address] Nephrology Progress Note Signed Patient: Seth Murphy MR#: [id number] : 1955 Acct:[id number] Age/Sex: 67 / M Adm Date: 4 Loc: Room: [address] [place] [address] Type: ADM IN Attending Dr: Clay Smith MD Copies to: ~ Date of Service: 09/02/2023 Subjective Subjective Narrative: Mr. Murphy is a 67-year-old male with medical history significant for ESRD, DM, HTN, CAD, Peripheral vascular disease with amputation of left big toe. He presented to the [facility] due to suspected infection on his right foot. He is having increased pain and swelling over this past several days. On presentation to the ED he had fever, chills and confusion. He had no leukocytosis but was febrile, tachycardic, normotensive. Sodium 128, glucose 500, lactic acid 2.2. While at [facility] he was started on IV vancomycin and Rocephin. He was transferred here for dialysis and continued sepsis management. Upon arrival to [facility] he was noted to have a fever of 102, tachycardia, blood pressure 150s over 50s. He appeared septic. 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 Patient receives dialysis on MWF schedule at [facility].. Nephrology was consulted for ESRD management and [...] Skin: No rashes , warm to touch [employer]: Awake,Alert, following simple command Musculoskeletal: No swelling [...] 2.5 Mg Tablet) 2.5 mg PO DAILY [facility] Stop: 08/31/24 11:54 Last Admin: 09/01/23 12:54 Dose: 2.5 mg Apixaban (Apixaban 5 Mg Tablet) 10 mg PO BID [facility] Stop: 09/04/23 09:01 Last Admin: 09/01/23 21:31 Dose: 10 mg Apixaban (Apixaban 5 Mg Tablet) 5 mg PO BID [facility] Stop: 09/03/24 20:59 Atorvastatin Calcium (Atorvastatin 40 Mg Tablet) 40 mg PO QPM [facility] Stop: 08/24/24 20:59 Last Admin: 09/01/23 21:31 [...] 50 mls @ 100 mls/hr IV Q24H [facility] Last Admin: 09/01/23 17:01 Dose: 100 mls/hr Insulin Aspart (Insulin Aspart 300 Units/3 Ml Insuln.Pen) 0 units SUBCUT TID.WM.HS [facility]; Protocol Stop: 08/24/24 16:59 Last Admin: 09/01/23 21:31 Dose: 12 units Insulin Glargine (Insulin Glargine 300 Units/3 Ml Insuln.Pen) 45 units SUBCUT QHS [facility] Stop: 08/28/24 21:59 Last Admin: 09/01/23 21:44 Dose: 45 units Levothyroxine Sodium (Levothyroxine 100 Mcg Tablet) 100 mcg PO DAILY.629 [facility] Stop: 08/26/24 06:29 Last Admin: 09/02/23 05:30 Dose: 100 mcg Liothyronine Sodium (Liothyronine 5 Mcg Tablet) 5 mcg PO QAM [facility] Stop: 08/25/24 08:59 Last Admin: 09/01/23 08:24 Dose: 5 mcg Metoprolol Succinate (Metoprolol Succinate 25 Mg Tab.Er.24h) 25 mg PO DAILY [facility] Stop: 08/31/24 08:59 Last Admin: 09/01/23 08:24 Dose: 25 mg Midodrine (Midodrine 5 Mg Tablet) 5 mg PO DAILY PRN PRN Reason: Hypotension Stop: 08/25/24 09:07 Last Admin: 08/26/23 14:59 Dose: 5 mg Morphine Sulfate (Morphine Sulfate 2 Mg/Ml Vial) 2 mg IV-PUSH Q4H PRN PRN Reason: Pain Scale 8 - 10 Last Admin: 08/27/23 11:31 Dose: 2 mg Multi-Ingredient Cream (Lanolin Alcohol/Mo/W.Pet/[place] (Minerin) 454 Gm Jar) 1 applic TOPICAL DAILY [facility] Stop: 08/30/24 08:59 Last Admin: 09/01/23 08:24 Dose: 1 applic Nystatin (Nystatin 100,000 Unit/Gram Powder 15 Gm Bottle) 1 applic TOPICAL DAILY [facility] Stop: 08/30/24 08:59 Last Admin: 09/01/23 08:24 Dose: 1 applic Paricalcitol (Paricalcitol 10 Mcg/2 Ml Vial) 7 mcg IV-PUSH MoWeFr@1000 [facility] Stop: 08/25/24 09:59 Last Admin: 08/30/23 [...] <Electronically signed by Hilario Nunez MD> 09/02/23 1229 [facility] Work Phone: 1(149) 234-706307-21-2024 Progress note Author Marina Agudelo [facility] September 01, 2023 1:17pm Note Date/Time September 01, 2023 1:17 pm [facility] [address] [place] [address] Nephrology Progress Note Signed Patient: Seth Murphy MR#: [id number] : 1955 Acct:[id number] Age/Sex: 67 / M Adm Date: 4 Loc: Room: [address] [place] [address] Type: ADM IN Attending Dr: Denice Dahl MD Copies to: ~ Date of Service: 09/01/2023 Subjective Subjective Narrative: Mr. Murphy is a 67-year-old male with medical history significant for ESRD, DM, HTN, CAD, Peripheral vascular disease with amputation of left big toe. He presented to the [facility] due to suspected infection on his right foot. He is having increased pain and swelling over this past several days. On presentation to the ED he had fever, chills and confusion. He had no leukocytosis but was febrile, tachycardic, normotensive. Sodium 128, glucose 500, lactic acid 2.2. While at [facility] he was started on IV vancomycin and Rocephin. He was transferred here for dialysis and continued sepsis management. Upon arrival to [facility] he was noted to have a [...] 09/01/23 11:28 09/01/23 11:28 09/01/23 11:44 Narrative: General: Lying in bed. Ill-appearing. [...] 2.5 Mg Tablet) 2.5 mg PO DAILY [facility] Stop: 08/31/24 11:54 Last Admin: 09/01/23 [...] 50 mls @ 100 mls/hr IV Q24H [facility] Last Admin: 08/31/23 15:00 Dose: 100 mls/hr Insulin Aspart (Insulin Aspart 300 Units/3 Ml Insuln.Pen) 0 units SUBCUT TID.WM.HS [facility]; Protocol Stop: 08/24/24 16:59 Last Admin: 09/01/23 12:51 Dose: 7 units Insulin Glargine (Insulin Glargine 300 Units/3 Ml Insuln.Pen) 45 units SUBCUT QHS [facility] Stop: 08/28/24 21:59 Last Admin: 08/31/23 21:47 Dose: 45 units Levothyroxine Sodium (Levothyroxine 100 Mcg Tablet) 100 mcg PO DAILY.0630 [facility] Stop: 08/26/24 06:29 Last Admin: 09/01/23 06:11 Dose: 100 mcg Liothyronine Sodium (Liothyronine 5 Mcg Tablet) 5 mcg PO QAM [facility] Stop: 08/25/24 08:59 Last Admin: 09/01/23 08:24 Dose: 5 mcg Metoprolol Succinate (Metoprolol Succinate 25 Mg Tab.Er.24h) 25 mg PO DAILY [facility] Stop: 08/31/24 08:59 Last Admin: 09/01/23 08:24 Dose: 25 mg Midodrine (Midodrine 5 Mg Tablet) 5 mg PO DAILY PRN PRN Reason: Hypotension Stop: 08/25/24 09:07 Last Admin: 08/26/23 14:59 Dose: 5 mg Morphine Sulfate (Morphine Sulfate 2 Mg/Ml Vial) 2 mg IV-PUSH Q4H PRN PRN Reason: Pain Scale 8 - 10 Last Admin: 08/27/23 11:31 Dose: 2 mg Multi-Ingredient Cream (Lanolin Alcohol/Mo/W.Pet/[place] (Minerin) 454 Gm Jar) 1 applic TOPICAL DAILY [facility] Stop: 08/30/24 08:59 Last Admin: 09/01/23 [...] By: <Electronically signed by MD Marina Agudelo> 09/01/231316 [facility] Work Phone: 1(256) 205-183707-21-2024 Progress note Author Denice Dahl [facility] September 01, 2023 11:56am Note Date/Time September 01, 2023 11:5 6am [facility] [address] [place] [address] Hospitalist Progress Note Signed Patient: Seth Murphy MR#: [id number] : 1955 Acct:[id number] Age/Sex: 67 / M Adm Date: 4 Loc: 4N Room: [address] [place] [address] Type: ADM IN Attending Dr: Denice Dahl [...] oriented to place, time and person HEENT: [place] conjunctiva and NL buccal mucosa Neck: Supple, [...] 10:24 Heparin 10,000 Unit/10 Ml Vial IV 07/15/25 09:07 3,000 unit PRN PRN Administration Dialysis [...] Insuln.Pen SUBCUT 08/24/24 16:59 Not Given TID.WM.HS [facility] Protocol Insulin Glargine 45 units 08/29/23 [...] 8 - 10 Multi-Ingredient Cream 1 applic 07/20/24 09:00 09/01/23 08:24 Lanolin Alcohol/Mo/W.Pet/[place] (Minerin) 454 Gm Jar TOPICAL 08/30/24 08:59 [...] SNF admission. Documented By: Denice Dahl MD 09/01/23 115 Signed By: <Electronically signed by Denice Dahl MD> 09/01/23 1156 [facility] Work Phone: 1(352) 242-268407-21-2024 Progress note Author Alfredo Acosta [facility] September 01, 2023 10:00am Note Date/Time September 01, 2023 10:0 0am [facility] [address] [place] [address] Infect. Disease Progress Note Signed Patient: Seth Murphy MR#: [id number] : 1955 Acct:[id number] Age/Sex: 67 / M Adm Date: 4 Loc: 4N Room: [id number] Type: ADM IN Attending Dr: Denice Dahl [...] Reason: Dialysis Stop: 08/25/24 09:07 Last Infusion: 07/19/24 10:25 Dose: Infused Cefepime HCl (Maxipime) 1 gm in 50 mls @ 100 mls/hr IV Q24H [facility] Last Admin: 08/31/23 15:00 Dose: 100 mls/hr Insulin Aspart (Insulin Aspart 300 Units/3 Ml Insuln.Pen) 0 units SUBCUT T[facility]; Protocol Stop: 08/24/24 16:59 Last Admin: 09/01/23 09:09 Dose: Not Given Insulin Glargine (Insulin Glargine 300 Units/3 Ml Insuln.Pen) 45 units SUBCUT QHS [facility] Stop: 08/28/24 21:59 Last Admin: 08/31/23 21:47 Dose: 45 units Levothyroxine Sodium (Levothyroxine 100 Mcg Tablet) 100 mcg PO DAILY.629 [facility] Stop: 08/26/24 06:29 Last Admin: 09/01/23 06:11 Dose: 100 mcg Liothyronine Sodium (Liothyronine 5 Mcg Tablet) 5 mcg PO QAM [facility] Stop: 08/25/24 08:59 Last Admin: 09/01/23 08:24 Dose: 5 mcg Metoprolol Succinate (Metoprolol Succinate 25 Mg Tab.Er.24h) 25 mg PO DAILY [facility] Stop: 08/31/24 08:59 Last Admin: 09/01/23 08:24 Dose: 25 mg Midodrine (Midodrine 5 Mg Tablet) 5 mg PO DAILY PRN PRN Reason: Hypotension Stop: 08/25/24 09:07 Last Admin: 08/26/23 14:59 Dose: 5 mg Morphine Sulfate (Morphine Sulfate 2 Mg/Ml Vial) 2 mg IV-PUSH Q4H PRN PRN Reason: Pain Scale 8 - 10 Last Admin: 08/27/23 11:31 Dose: 2 mg Multi-Ingredient Cream (Lanolin Alcohol/Mo/W.Pet/[place] (Minerin) 454 Gm Jar) 1 applic TOPICAL DAILY [facility] Stop: 08/30/24 08:59 Last Admin: 09/01/23 08:24 Dose: 1 applic Nystatin (Nystatin 100,000 Unit/Gram Powder 15 Gm Bottle) 1 applic TOPICAL DAILY [facility] Stop: 08/30/24 08:59 Last Admin: 09/01/23 [...] alternative in a few weeks after IV residential now being planned for discharge. Continue vancomycin and cefepime Documented By: Alfredo Acosta MD 09/01/23 0959 Signed By: <Electronically signed by MD Alfredo Acosta> 09/01/23 1000 [facility] Work Phone: 1(906) [phone] Progress note Author Marina Agudelo [facility] August 31, 2023 1:45pm Note Date/Time August 31, 2023 1:40 pm [facility] [address] [place] [address] Nephrology Progress Note Signed Patient: Seth Murphy MR#: [id number] : 1955 Acct:[id number] Age/Sex: 67 / M Adm Date: 4 Loc: N Room: [address] [place] [address] Type: ADM IN Attending Dr: Denice Dahl MD Copies to: ~ Date of Service: 08/31/2023 Subjective Subjective Narrative: Mr. Murphy is a 67-year-old male with medical history significant for ESRD, DM, HTN, CAD, Peripheral vascular disease with amputation of left big toe. He presented to the [facility] due to suspected infection on his right foot. He is having increased pain and swelling over this past several days. On presentation to the ED he had fever, chills and confusion. He had no leukocytosis but was febrile, tachycardic, normotensive. Sodium 128, glucose 500, lactic acid 2.2. While at [facility] he was started on IV vancomycin and Rocephin. He was transferred here for dialysis and continued sepsis management. Upon arrival to [facility] he was noted to have a fever of 102, tachycardia, blood pressure 150s over 50s. He appeared septic. 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 Patient receives dialysis on MWF schedule at [facility] [place] Nephrology was consulted for ESRD management and [...] H 96 Room Air 08/31/23 12:04 08/31/23 12:04 08/31/23 12:04 08/31/23 12:04 08/31/23 12:08/31/23 12:04 Narrative: General: Lying in bed. [...] BID [facility] Stop: 09/04/23 09:01 Last Admin: 08/31/23 09:15 [...] 50 mls @ 100 mls/hr IV Q24H [facility] Last Infusion: 08/30/23 17:45 Dose: Infused Insulin Aspart (Insulin Aspart 300 Units/3 Ml Insuln.Pen) 0 units SUBCUT TID.WM.HS [facility]; Protocol Stop: 08/24/24 16:59 Last Admin: 08/31/23 12:22 Dose: 10 units Insulin Glargine (Insulin Glargine 300 Units/3 Ml Insuln.Pen) 45 units SUBCUT QHS [facility] Stop: 08/28/24 21:59 Last Admin: 08/30/23 21:05 Dose: 45 units Levothyroxine Sodium (Levothyroxine 100 Mcg Tablet) 100 mcg PO DAILY.0630 [facility] Stop: 08/26/24 06:29 Last Admin: 08/31/23 06:39 Dose: 100 mcg Liothyronine Sodium (Liothyronine 5 Mcg Tablet) 5 mcg PO QAM [facility] Stop: 08/25/24 08:59 Last Admin: 08/31/23 09:15 Dose: 5 mcg Metoprolol Succinate (Metoprolol Succinate 25 Mg Tab.Er.24h) 25 mg PO DAILY [facility] Stop: 08/31/24 08:59 Midodrine (Midodrine 5 Mg Tablet) 5 mg PO DAILY PRN PRN Reason: Hypotension Stop: 08/25/24 09:07 Last Admin: 08/26/23 14:59 Dose: 5 mg Morphine Sulfate (Morphine Sulfate 2 Mg/Ml Vial) 2 mg IV-PUSH Q4H PRN PRN Reason: Pain Scale 8 - 10 Last Admin: 08/27/23 11:31 Dose: 2 mg Multi-Ingredient Cream (Lanolin Alcohol/Mo/W.Pet/[place] (Minerin) 454 Gm Jar) 1 applic TOPICAL [...] point. Documented By: Marina Agudelo MD 08/31/23 7439 Signed By: <Electronically signed by MD Marina Agudelo> 08/31/23 2711 [facility] Work Phone: 1([phone] 139-622707-20-2024 Progress note Author Denice Dahl [facility] August 31, 2023 8:56am Note Date/Time August 31, 2023 8:56 am [facility] [address] [place] [address] Hospitalist Progress Note Signed Patient: Seth Murphy MR#: [id number] : 1955 Acct:[id number] Age/Sex: 67 / M Adm Date: 4 Loc: 4N Room: [id number] Type: ADM IN Attending Dr: Denice Dahl [...] oriented to place, time and person HEENT: [place] conjunctiva and NL buccal mucosa Neck: Supple, [...] Multi-Ingredient Cream 1 applic 08/31/23 09:00 Lanolin Alcohol/Mo/W.Pet/[place] (Minerin) 454 Gm Jar TOPICAL 08/30/24 08:59 [...] signed by Denice Dahl MD> 08/31/23 0856 [facility] Work Phone: 1([phone] 228-194507-20-2024 Progress note Author Alfredo Acosta [facility] August 31, 2023 8:46am Note Date/Time August 31, 2023 8:46 am [facility] [address] [place] [address] Infect. Disease Progress Note Signed Patient: Seth Murphy MR#: [id number] : 1955 Acct:[id number] Age/Sex: 67 / M Adm Date: 4 Loc: 4N Room: [address] [place] [address] Type: ADM IN Attending Dr: Denice Dahl [...] 5 Mg Tablet) 10 mg PO BID [facility] Stop: 09/04/23 09:01 Last Admin: 08/30/23 20:13 Dose: 10 mg Apixaban (Apixaban 5 Mg Tablet) 5 mg PO BID [facility] Stop: 09/03/24 20:59 Atorvastatin Calcium (Atorvastatin [...] 50 mls @ 100 mls/hr IV Q24H [facility] Last Infusion: 08/30/23 17:45 Dose: Infused Insulin Aspart (Insulin Aspart 300 Units/3 Ml Insuln.Pen) 0 units SUBCUT TID.WM.HS [facility]; Protocol Stop: 08/24/24 16:59 Last Admin: 08/30/23 21:06 Dose: 14 units Insulin Glargine (Insulin Glargine 300 Units/3 Ml Insuln.Pen) 45 units SUBCUT QHS [facility] Stop: 08/28/24 21:59 Last Admin: 08/30/23 21:05 Dose: 45 units Levothyroxine Sodium (Levothyroxine 100 Mcg Tablet) 100 mcg PO DAILY.0630 [facility] Stop: 08/26/24 06:29 Last Admin: 08/31/23 06:39 Dose: 100 mcg Liothyronine Sodium (Liothyronine 5 Mcg Tablet) 5 mcg PO QAM [facility] Stop: 08/25/24 08:59 Last Admin: 08/30/23 08:15 Dose: 5 mcg Metoprolol Tartrate (Metoprolol Tartrate 25 Mg Tablet) 25 mg PO BID [facility] Stop: 08/25/24 17:59 Midodrine (Midodrine 5 Mg Tablet) 5 mg PO DAILY PRN PRN Reason: Hypotension Stop: 08/25/24 09:07 Last Admin: 08/26/23 14:59 Dose: 5 mg Morphine Sulfate (Morphine Sulfate 2 Mg/Ml Vial) 2 mg IV-PUSH Q4H PRN PRN Reason: Pain Scale 8 - 10 Last Admin: 08/27/23 11:31 Dose: 2 mg Multi-Ingredient Cream (Lanolin Alcohol/Mo/W.Pet/[place] (Minerin) 454 Gm Jar) 1 applic TOPICAL DAILY [facility] Stop: 08/30/24 08:59 Nystatin (Nystatin 100,000 Unit/Gram Powder 15 Gm Bottle) 1 applic TOPICAL DAILY [facility] Stop: 08/30/24 08:59 Paricalcitol (Paricalcitol 10 Mcg/2 Ml Vial) 7 mcg IV-PUSH MoWeFr@1000 [facility] Stop: 08/25/24 09:59 Last Admin: 08/30/23 [...] signed by MD Alfredo Acosta> 08/31/23 0846 [facility] Work Phone: [phone] 389-737107-19-2024 Progress note Author Marina [facility] August 30, 2023 12:45pm Note Date/Time August 30, 2023 12:4 5pm [facility] [address] [place] [address] Nephrology Progress Note Signed Patient: Seth Murphy MR#: [id number] : 1955 Acct:[id number] Age/Sex: 67 / M Adm Date: 4 Loc: Room: [address] [place] [address] Type: ADM IN Attending Dr: Denice Dahl MD Copies to: ~ Date of Service: 08/30/2023 Subjective Subjective Narrative: Mr. Murphy is a 67-year-old male with medical history significant for ESRD, DM, HTN, CAD, Peripheral vascular disease with amputation of left big toe. He presented to the [facility] due to suspected infection on his right foot. He is having increased pain and swelling over this past several days. On presentation to the ED he had fever, chills and confusion. He had no leukocytosis but was febrile, tachycardic, normotensive. Sodium 128, glucose 500, lactic acid 2.2. While at [facility] he was started on IV vancomycin and Rocephin. He was transferred here for dialysis and continued sepsis management. Upon arrival to [facility] he was noted to have a fever of 102, tachycardia, blood pressure 150s over 50s. He appeared septic. 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 Patient receives dialysis on MWF schedule at [facility] [place] Nephrology was consulted for ESRD management and [...] mls @ 100 mls/hr IV Q24H [facility] Insulin Aspart (Insulin Aspart 300 Units/3 Ml Insuln.Pen) 0 units SUBCUT TID.WM.HS [facility]; Protocol Stop: 08/24/24 16:59 Last Admin: 08/30/23 08:15 Dose: 4 units Insulin Glargine (Insulin Glargine 300 Units/3 Ml Insuln.Pen) 45 units SUBCUT QHS [facility] Stop: 08/28/24 21:59 Last Admin: 08/29/23 22:03 Dose: 45 units Levothyroxine Sodium (Levothyroxine 100 Mcg Tablet) 100 mcg PO DAILY.0630 [facility] Stop: 08/26/24 06:29 Last Admin: 08/30/23 06:11 Dose: 100 mcg Liothyronine Sodium (Liothyronine 5 Mcg Tablet) 5 mcg PO QAM [facility] Stop: 08/25/24 08:59 Last Admin: 08/30/23 08:15 Dose: 5 mcg Metoprolol Tartrate (Metoprolol Tartrate 25 Mg Tablet) 25 mg PO BID [facility] Stop: 08/25/24 17:59 Midodrine (Midodrine 5 Mg Tablet) 5 mg PO DAILY PRN PRN Reason: Hypotension Stop: 08/25/24 09:07 Last Admin: 08/26/23 14:59 Dose: 5 mg Morphine Sulfate (Morphine Sulfate 2 Mg/Ml Vial) 2 mg IV-PUSH Q4H PRN PRN Reason: Pain Scale 8 - 10 Last Admin: 08/27/23 11:31 Dose: 2 mg Paricalcitol (Paricalcitol 10 Mcg/2 Ml Vial) 7 mcg IV-PUSH MoWeFr@1000 [facility] Stop: 08/25/24 09:59 Last Admin: 08/30/23 [...] bradycardia Documented By: Marina Agudelo MD 08/30/23 1233 Signed By: <Electronically signed by MD Marina Agudelo> 08/30/23 124 [facility] Work Phone: [phone] Progress note Author Felisa Win [facility] August 30, 2023 12:05pm Note Date/Time August 30, 2023 11:3 6am [facility] [address] [place] [address] Podiatry Progress Note Signed Patient: Seth Murphy MR#: [id number] : 1955 Acct:[id number] Age/Sex: 67 / M Adm Date: 4 Loc: 4N Room: [id number] Type: ADM IN Attending Dr: Denice Dahl [...] antibiotic therapy is finalized with [facility] for dressing changes to the right foot which he has had established. He is a patient of Dr. Schwarz at [facility] and would like to [...] <Electronically signed by ISAIAH Win> 08/30/23 1205 [facility] Work Phone: [phone] 345-188507-19-2024 Progress note Author Alfredo Acosta [facility] August 30, 2023 11:37am Note Date/Time August 30, 2023 11:3 8am [facility] [address] [place] [address] Infect. Disease Progress Note Signed Patient: Seth Murphy MR#: [id number] : 1955 Acct:[id number] Age/Sex: 67 / M Adm Date: 4 Loc: 4N Room: [address] [place] [address] Type: ADM IN Attending Dr: Denice Dahl [...] Units/3 Ml Insuln.Pen) 0 units SUBCUT TID.WM.HS [facility]; Protocol Stop: 08/24/24 16:59 Last Admin: 08/30/23 08:15 Dose: 4 units Insulin Glargine (Insulin Glargine 300 Units/3 Ml Insuln.Pen) 45 units SUBCUT QHS [facility] Stop: 08/28/24 21:59 Last Admin: 08/29/23 22:03 Dose: 45 units Levothyroxine Sodium (Levothyroxine 100 Mcg Tablet) 100 mcg PO DAILY.0630 [facility] Stop: 08/26/24 06:29 Last Admin: 08/30/23 06:11 Dose: 100 mcg Liothyronine Sodium (Liothyronine 5 Mcg Tablet) 5 mcg PO QAM [facility] Stop: 08/25/24 08:59 Last Admin: 08/30/23 08:15 Dose: 5 mcg Metoprolol Tartrate (Metoprolol Tartrate 25 Mg Tablet) 25 mg PO BID [facility] Stop: 08/25/24 17:59 Midodrine (Midodrine 5 Mg Tablet) 5 mg PO DAILY PRN PRN Reason: Hypotension Stop: 08/25/24 09:07 Last Admin: 08/26/23 14:59 Dose: 5 mg Morphine Sulfate (Morphine Sulfate 2 Mg/Ml Vial) 2 mg IV-PUSH Q4H PRN PRN Reason: Pain Scale 8 - 10 Last Admin: 08/27/23 11:31 Dose: 2 mg Paricalcitol (Paricalcitol 10 Mcg/2 Ml Vial) 7 mcg IV-PUSH MoWeFr@1000 [facility] Stop: 08/25/24 09:59 Last Admin: 08/30/23 [...] By: <Electronically signed by MD Alfredo Acosta> 08/30/23 9017 [facility] Work Phone: [phone] 151-824107-19-2024 Progress note Author Denice Dahl [facility] August 30, 2023 10:25am Note Date/Time August 30, 2023 10:2 5am [facility] [address] [place] [address] Hospitalist Progress Note Signed Patient: Seth Murphy MR#: [id number] : 1955 Acct:[id number] Age/Sex: 67 / M Adm Date: 4 Loc: 4N Room: [address] [place] [address] Type: ADM IN Attending Dr: Denice Dahl MD Copies to: ~ Date of Service: 08/30/2023 Exam Physical Exam Vital Signs: Temp Pulse Resp BP Pulse Ox O2 Del Method 98.2 F 68 18 117/58 L 98 Room Air 08/30/23 10:15 08/30/23 10:19 08/30/23 10:15 08/30/23 10:19 08/30/23 10:15 08/30/23 10:15 Narrative: [pt is awake and alert. oriented to place, time and person HEENT: [place] conjunctiva and NL buccal mucosa Neck: Supple, [...] Dose Route Start Last Admin Trade Name Geneq PRN Reason Stop Dose Admin Acetaminophen 650 [...] <Electronically signed by Denice Dahl MD> 08/30/23 [facility]5 [facility] Work Phone: 1(882) 446-420907-18-2024 Progress note Author DAVID Pop [facility] August 29, 2023 12:38pm Note Date/Time August 29, 2023 12:3 8pm [facility] [address] [place] [address] Podiatry Progress Note Signed Patient: Seth Murphy MR#: [id number] : 1955 Acct:[id number] Age/Sex: 67 / M Adm Date: 4 Loc: 4N Room: [address] [place] [address] Type: ADM IN Attending Dr: Denice Dahl [...] By: <Electronically signed by ISAIAH Pop> 08/29/23 9688 [facility] Work Phone: 1([phone]) [phone] Progress note Author Marina Agudelo [facility] August 29, 2023 11:36am Note Date/Time August 29, 2023 11:3 6am [facility] [address] [place] [address] Nephrology Progress Note Signed Patient: Seth Murphy MR#: [id number] : 1955 Acct:[id number] Age/Sex: 67 / M Adm Date: 4 Loc: 4N Room: 5G9399-4 Type: ADM IN Attending Dr: Denice Dahl MD Copies to: ~ Date of Service: 08/29/2023 Subjective Subjective Narrative: Mr. Murphy is a 67-year-old male with medical history significant for ESRD, DM, HTN, CAD, Peripheral vascular disease with amputation of left big toe. He presented to the [facility] due to suspected infection on his right foot. He is having increased pain and swelling over this past several days. On presentation to the ED he had fever, chills and confusion. He had no leukocytosis but was febrile, tachycardic, normotensive. Sodium 128, glucose 500, lactic acid 2.2. While at [facility] he was started on IV vancomycin and Rocephin. He was transferred here for dialysis and continued sepsis management. Upon arrival to [facility] he was noted to have a fever of 102, tachycardia, blood pressure 150s over 50s. He appeared septic. 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 Patient receives dialysis on MWF schedule at [facility] [place] Nephrology was consulted for ESRD management and [...] Units/3 Ml Insuln.Pen) 0 units SUBCUT TID.WM.HS [facility]; Protocol Stop: 08/24/24 16:59 Last Admin: 08/29/23 08:09 Dose: 7 units Insulin Glargine (Insulin Glargine 300 Units/3 Ml Insuln.Pen) 45 units SUBCUT QHS [facility] Stop: 08/28/24 21:59 Levothyroxine Sodium (Levothyroxine 100 Mcg Tablet) 100 mcg PO DAILY.0630 [facility] Stop: 08/26/24 06:29 Last Admin: 08/29/23 07:44 Dose: Not Given Liothyronine Sodium (Liothyronine 5 Mcg Tablet) 5 mcg PO QAM [facility] Stop: 08/25/24 08:59 Last Admin: 08/29/23 08:09 Dose: 5 mcg Metoprolol Tartrate (Metoprolol Tartrate 25 Mg Tablet) 25 mg PO BID [facility] Stop: 08/25/24 17:59 Midodrine (Midodrine 5 [...] Reagan Burger M.D.08/29/2023 8:19 AM Dictation Location: [place] [address] Any impression(s) listed above is documentation that [...] <Electronically signed by MD Marina Agudelo> 08/29/23 1419 [facility] Work Phone: [phone] 518-598207-18-2024 Progress note Author Denice Dahl [facility] August 29, 2023 10:55am Note Date/Time August 29, 2023 10:5 5am [facility] [address] [place] [address] Hospitalist Progress Note Signed Patient: Seth Murphy MR#: [id number] : 1955 Acct:[id number] Age/Sex: 67 / M Adm Date: 4 Loc: 4N Room: [address] [place] [address] Type: ADM IN Attending Dr: Denice Dahl [...] oriented to place, time and person HEENT: [place] conjunctiva and NL buccal mucosa Neck: Supple, [...] Tablet PO 08/26/24 06:29 Not Given DAILY.0630 [facility] Liothyronine Sodium 5 mcg 08/26/23 09:00 08/29/23 [...] by PCP. Documented By: Denice Dahl MD 08/29/231053 Signed By: <Electronically signed by Denice Dahl MD> 08/29/23 1054 [facility] Work Phone: [phone] Progress note Author Alfredo Acosta [facility] August 29, 2023 9:02am Note Date/Time August 29, 2023 8:50 am [facility] [address] [place] [address] Infect. Disease Progress Note Signed Patient: Seth Murphy MR#: [id number] : 1955 Acct:[id number] Age/Sex: 67 / M Adm Date: 4 Loc: 4N Room: [address] [place] [address] Type: ADM IN Attending Dr: Denice Dhal MD Copies to: ~ Date of Service: [...] 100 mls @ 25 mls/hr IV Q12H [facility] Last Admin: 08/28/23 23:42 Dose: 25 mls/hr Sodium Chloride (0.9% Sodium Chloride 1,000 Ml) 1,000 mls @ 0 mls/hr MISCELLANE.Q0M PRN PRN Reason: Dialysis Stop: 08/25/24 09:07 Last Infusion: 08/28/23 09:52 Dose: Infused Lactated Ringer's (Lactated Ringers) 1,000 mls @ 75 mls/hr IV .[id number] [facility] Stop: 08/29/23 10:19 Last Admin: 08/28/23 23:42 Dose: 75 mls/hr Insulin Aspart (Insulin Aspart 300 Units/3 Ml Insuln.Pen) 0 units SUBCUT TID.WM.HS [facility]; Protocol Stop: 08/24/24 16:59 Last Admin: 08/29/23 08:09 Dose: 7 units Insulin Glargine (Insulin Glargine 300 Units/3 Ml Insuln.Pen) 40 units SUBCUT QHS [facility] Stop: 08/24/24 21:59 Last Admin: 08/28/23 21:43 Dose: 40 units Levothyroxine Sodium (Levothyroxine 100 Mcg Tablet) 100 mcg PO DAILY.629 [facility] Stop: 08/26/24 06:29 Last Admin: 08/29/23 07:44 Dose: Not Given Liothyronine Sodium (Liothyronine 5 Mcg Tablet) 5 mcg PO QAM [facility] Stop: 08/25/24 08:59 Last Admin: 08/29/23 08:09 Dose: 5 mcg Metoprolol Tartrate (Metoprolol Tartrate 25 Mg Tablet) 25 mg PO BID [facility] Stop: 08/25/24 17:59 Midodrine (Midodrine 5 Mg Tablet) 5 mg PO DAILY PRN PRN Reason: Hypotension Stop: 08/25/24 09:07 Last Admin: 08/26/23 14:59 Dose: 5 mg Morphine Sulfate (Morphine Sulfate 2 Mg/Ml Vial) 2 mg IV-PUSH Q4H PRN PRN Reason: Pain Scale 8 - 10 Last Admin: 08/27/23 11:31 Dose: 2 mg Paricalcitol (Paricalcitol 10 Mcg/2 Ml Vial) 7 mcg IV-PUSH MoWeFr@1000 [facility] Stop: 08/25/24 09:59 Last Admin: 08/28/23 [...] and Zosyn Documented By: Alfredo Acosta MD 08/29/23 0848 Signed By: <Electronically signed by MD Alfredo Acosta> 08/29/23 0902 [facility] Work Phone: [phone] Progress note Author Marina [facility] August 28, 2023 1:59pm Note Date/Time August 28, 2023 1:59 pm [facility] [address] [place] [address] Nephrology Progress Note Signed Patient: Seth Murphy MR#: [id number] : 1955 Acct:[id number] Age/Sex: 67 / M Adm Date: 4 Loc: 4 Room: [id number] Type: ADM IN Attending Dr: Denice Dahl MD Copies to: ~ Date of Service: 08/28/2023 Subjective Subjective Narrative: Mr. Murphy is a 67-year-old male with medical history significant for ESRD, DM, HTN, CAD, Peripheral vascular disease with amputation of left big toe. He presented to the [facility] due to suspected infection on his right foot. He is having increased pain and swelling over this past several days. On presentation to the ED he had fever, chills and confusion. He had no leukocytosis but was febrile, tachycardic, normotensive. Sodium 128, glucose 500, lactic acid 2.2. While at [facility] he was started on IV vancomycin and Rocephin. He was transferred here for dialysis and continued sepsis management. Upon arrival to [facility] he was noted to have a fever of 102, tachycardia, blood pressure 150s over 50s. He appeared septic. 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 Patient receives dialysis on MWF schedule at [facility] [place] Nephrology was consulted for ESRD management and [...] 100 mls @ 25 mls/hr IV Q12H [facility] Last Admin: 08/28/23 00:35 Dose: 25 mls/hr Sodium Chloride (0.9% Sodium Chloride 1,000 Ml) 1,000 mls @ 0 mls/hr MISCELLANE.Q0M PRN PRN Reason: Dialysis Stop: 08/25/24 09:07 Last Infusion: 08/28/23 09:52 Dose: Infused Lactated Ringer's (Lactated Ringers) 1,000 mls @ 75 mls/hr IV .[id number] [facility] Stop: 08/28/23 22:04 Vancomycin HCl (Vancomycin) 0.75 gm in 250 mls @ 250 mls/hr IV ONCE ONE Stop: 08/28/23 16:29 Insulin Aspart (Insulin Aspart 300 Units/3 Ml Insuln.Pen) 0 units SUBCUT TID.WM.HS [facility]; Protocol Stop: 08/24/24 16:59 Last Admin: 08/28/23 08:50 Dose: Not Given Insulin Glargine (Insulin Glargine 300 Units/3 Ml Insuln.Pen) 40 units SUBCUT QHS [facility] Stop: 08/24/24 21:59 Last Admin: 08/27/23 22:44 Dose: 40 units Levothyroxine Sodium (Levothyroxine 100 Mcg Tablet) 100 mcg PO DAILY.0630 [facility] Stop: 08/26/24 06:29 Last Admin: 08/28/23 06:55 Dose: 100 mcg Liothyronine Sodium (Liothyronine 5 Mcg Tablet) 5 mcg PO QAM [facility] Stop: 08/25/24 08:59 Last Admin: 08/27/23 10:22 Dose: 5 mcg Metoprolol Tartrate (Metoprolol Tartrate 25 Mg Tablet) 25 mg PO BID [facility] Stop: 08/25/24 17:59 Midodrine (Midodrine 5 Mg Tablet) 5 mg PO DAILY PRN PRN Reason: Hypotension Stop: 08/25/24 09:07 Last Admin: 08/26/23 14:59 Dose: 5 mg Morphine Sulfate (Morphine Sulfate 2 Mg/Ml Vial) 2 mg IV-PUSH Q4H PRN PRN Reason: Pain Scale 8 - 10 Last Admin: 08/27/23 11:31 Dose: 2 mg Paricalcitol (Paricalcitol 10 Mcg/2 Ml Vial) 7 mcg IV-PUSH MoWeFr@1000 [facility] Stop: 08/25/24 09:59 Last Admin: 08/28/23 [...] Uriah Hays M.D.08/27/2023 3:55 PM Dictation Location: [place] [address] Any impression(s) listed above is documentation that [...] day. Documented By: Marina Agudelo MD 08/28/23 1352 Signed By: <Electronically signed by MD Marina Agudelo> 08/28/23 6491 [facility] Work Phone: 1([phone] 222-141607-17-2024 Progress note Author Alfredo Acosta [facility] August 28, 2023 9:22am Note Date/Time August 28, 2023 9:22 am [facility] [address] [place] [address] Infect. Disease Progress Note Signed Patient: Seth Murphy MR#: [id number] : 1955 Acct:[id number] Age/Sex: 67 / M Adm Date: 4 Loc: 4N Room: 8E0023-7 Type: ADM IN Attending Dr: Denice Dahl [...] Ringers) 1,000 mls @ 75 mls/hr IV .[id number] [facility] Stop: 08/28/23 22:04 Vancomycin HCl (Vancomycin) 0.75 gm in 250 mls @ 250 mls/hr IV ONCE ONE Stop: 08/28/23 16:29 Insulin Aspart (Insulin Aspart 300 Units/3 Ml Insuln.Pen) 0 units SUBCUT TID.WM.HS [facility]; Protocol Stop: 08/24/24 16:59 Last Admin: 08/28/23 08:50 Dose: Not Given Insulin Glargine (Insulin Glargine 300 Units/3 Ml Insuln.Pen) 40 units SUBCUT QHS [facility] Stop: 08/24/24 21:59 Last Admin: 08/27/23 22:44 Dose: 40 units Levothyroxine Sodium (Levothyroxine 100 Mcg Tablet) 100 mcg PO DAILY.0630 [facility] Stop: 08/26/24 06:29 Last Admin: 08/28/23 06:55 Dose: 100 mcg Liothyronine Sodium (Liothyronine 5 Mcg Tablet) 5 mcg PO QAM [facility] Stop: 08/25/24 08:59 Last Admin: 08/27/23 10:22 Dose: 5 mcg Metoprolol Tartrate (Metoprolol Tartrate 25 Mg Tablet) 25 mg PO BID [facility] Stop: 08/25/24 17:59 Midodrine (Midodrine 5 Mg Tablet) 5 mg PO DAILY PRN PRN Reason: Hypotension Stop: 08/25/24 09:07 Last Admin: 08/26/23 14:59 Dose: 5 mg Morphine Sulfate (Morphine Sulfate 2 Mg/Ml Vial) 2 mg IV-PUSH Q4H PRN PRN Reason: Pain Scale 8 - 10 Last Admin: 08/27/23 11:31 Dose: 2 mg Paricalcitol (Paricalcitol 10 Mcg/2 Ml Vial) 7 mcg IV-PUSH MoWeFr@1000 [facility] Stop: 08/25/24 09:59 Last Admin: 08/26/23 [...] <Electronically signed by MD Alfredo Acosta> 08/28/23921 [facility] Work Phone: 1([phone] 801-815007-17-2024 Progress note Author Denice Dahl [facility] August 28, 2023 8:40am Note Date/Time August 28, 2023 8:40 am [facility] [address] [place] [address] Hospitalist Progress Note Signed Patient: Seth Murphy MR#: [id number] : 1955 Acct:[id number] Age/Sex: 67 / M Adm Date: 4 Loc: 4N Room: [address] [place] [address] Type: ADM IN Attending Dr: Denice Dahl [...] oriented to place, time and person HEENT: [place] conjunctiva and NL buccal mucosa Neck: Supple, [...] 60 Mcg/Ml Vial IV-PUSH 08/27/24 09:59 We@1000 [facility] Protocol Dextrose 0 gm 08/25/23 15:29 [...] 08/28/23 08:45 Lactated Ringers IV 08/28/23 22:04 .[id number] [facility] Insulin Aspart 0 units 08/25/23 17:00 08/27/23 [...] 18:00 Metoprolol Tartrate 25 Mg Tablet PO 07/15/25 17:59 BID [facility] Midodrine 5 mg 08/26/23 [...] by PCP. Documented By: Denice Dahl MD 08/28/23835 Signed By: <Electronically signed by Denice Dahl MD> 08/28/23839 [facility] Work Phone: 1([phone]) 909-492307-16-2024 Progress note Author DAVID Pop [facility] August 27, 2023 8:40pm Note Date/Time August 27, 2023 8:36 pm [facility] [address] [place] [address] Podiatry Progress Note Signed Patient: Seth Murphy MR#: [id number] : 1955 Acct:[id number] Age/Sex: 67 / M Adm Date: 4 Loc: Room: [address] [place] [address] Type: ADM IN Attending Dr: Denice Dahl [...] is he has been a patient of [facility] or ours in the past he was [...] With Patient (min): 20 Documented By: Romeo Pop DPM, MS, CWS 08/11 Signed By: <Electronically signed by ISAIAH Pop> 08/27/232039 [facility] Work Phone: 1([phone]) [phone] Progress note Author Marina Agudelo [facility] August 27, 2023 2:32pm Note Date/Time August 27, 2023 2:32 pm [facility] [address] [place] [address] Nephrology Progress Note Signed Patient: Seth Murphy MR#: [id number] : 1955 Acct:[id number] Age/Sex: 67 / M Adm Date: 4 Loc: Room: [address] [place] [address] Type: ADM IN Attending Dr: Denice Dahl MD Copies to: ~ Date of Service: 08/27/2023 Subjective Subjective Narrative: Mr. Murphy is a 67-year-old male with medical history significant for ESRD, DM, HTN, CAD, Peripheral vascular disease with amputation of left big toe. He presented to the [facility] due to suspected infection on his right foot. He is having increased pain and swelling over this past several days. On presentation to the ED he had fever, chills and confusion. He had no leukocytosis but was febrile, tachycardic, normotensive. Sodium 128, glucose 500, lactic acid 2.2. While at [facility] he was started on IV vancomycin and Rocephin. He was transferred here for dialysis and continued sepsis management. Upon arrival to [facility] he was noted to have a fever of 102, tachycardia, blood pressure 150s over 50s. He appeared septic. 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 Patient receives dialysis on MWF schedule at [facility].. Nephrology was consulted for ESRD management and [...] 08/27/23 08:06 08/27/23 08:06 08/27/23 08:06 Narrative: General: Lying in bed. Ill-appearing. [...] 40 Mg Tablet) 40 mg PO QPM [facility] Stop: 08/24/24 20:59 Last Admin: 08/26/23 22:35 Dose: 40 mg Darbepoetin Thomas (Darbepoetin Thomas In Polysorbat 60 Mcg/Ml Vial) 60 mcg IV-PUSHWe@1000 [facility]; Protocol Stop: 08/27/24 09:59 Dextrose (Dextrose 50% In Water 25 Gm/50 Ml Syringe) 0 gm IV-PUSH PRN PRN PRN Reason: Hypoglycemia Stop: 08/24/24 15:28 Enoxaparin Sodium (Enoxaparin 50 Mg/0.5 Ml From Multidose Vial) 50 mg SUBCUT Q12HR.10A.10P [facility] Stop: 08/25/24 10:29 Last Admin: 08/27/23 [...] 100 mls @ 25 mls/hr IV Q12H [facility] Last Admin: 08/27/23 01:29 Dose: Not Given Sodium Chloride (0.9% Sodium Chloride 1,000 Ml) 1,000 mls @ 0 mls/hr MISCELLANE.Q0M PRN PRN Reason: Dialysis Stop: 08/25/24 09:07 Last Admin: 08/26/23 15:35 Dose: 999 mls/hr Insulin Aspart (Insulin Aspart 300 Units/3 Ml Insuln.Pen) 0 units SUBCUT TID.WM.HS [facility]; Protocol Stop: 08/24/24 16:59 Last Admin: 08/27/23 08:48 Dose: Not Given Insulin Glargine (Insulin Glargine 300 Units/3 Ml Insuln.Pen) 40 units SUBCUT QHS [facility] Stop: 08/24/24 21:59 Last Admin: 08/26/23 22:36 Dose: 40 units Levothyroxine Sodium (Levothyroxine 100 Mcg Tablet) 100 mcg PO DAILY.0630 [facility] Stop: 08/26/24 06:29 Last Admin: 08/27/23 06:56 Dose: 100 mcg Liothyronine Sodium (Liothyronine 5 Mcg Tablet) 5 mcg PO QAM [facility] Stop: 08/25/24 08:59 Last Admin: 08/27/23 10:22 Dose: 5 mcg Metoprolol Tartrate (Metoprolol Tartrate 25 Mg Tablet) 25 mg PO BID [facility] Stop: 08/25/24 17:59 Midodrine (Midodrine 5 Mg Tablet) 5 mg PO DAILY PRN PRN Reason: Hypotension Stop: 08/25/24 09:07 Last Admin: 08/26/23 14:59 Dose: 5 mg Morphine Sulfate (Morphine Sulfate 2 Mg/Ml Vial) 2 mg IV-PUSH Q4H PRN PRN Reason: Pain Scale 8 - 10 Paricalcitol (Paricalcitol 10 Mcg/2 Ml Vial) 7 mcg IV-PUSH MoWeFr@1000 [facility] Stop: 08/25/24 09:59 Last Admin: 08/26/23 [...] Guicho Chun MD08/26/2023 3:09 PM Dictation Location: [facility]-DOC-04 Venous Duplex 08/26/23 15:32 IMPRESSION: Positive study for right leg chronic DVT. Lymph nodes identified inthe right groin. Impression dictated by: Guicho Chun MD08/26/2023 3:07 PM Dictation Location: [facility]04 Any impression(s) listed above is documentation that [...] <Electronically signed by MD Marina Agudelo> 08/27/23 5916 [facility] Work Phone: 1([phone] Progress note Author Denice Dahl [facility] August 27, 2023 8:55am Note Date/Time August 27, 2023 8:55 am [facility] [address] [place] [address] Hospitalist Progress Note Signed Patient: Seth Murphy MR#: [id number] : 1955 Acct:[id number] Age/Sex: 67 / M Adm Date: 4 Loc: 4N Room: [address] [place] [address] Type: ADM IN Attending Dr: Denice Dahl [...] oriented to place, time and person HEENT: [place] conjunctiva and NL buccal mucosa Neck: Supple, [...] 60 Mcg/Ml Vial IV-PUSH 08/27/24 09:59 We@1000 [facility] Protocol Dextrose 0 gm 08/25/23 15:29 [...] Insuln.Pen SUBCUT 08/24/24 16:59 Not Given TID.WM.HS [facility] Protocol Insulin Glargine 40 units 08/25/23 22:00 [...] signed by Denice Dahl MD> 08/27/23 0855 [facility] Work Phone: [phone] Progress note Author Alfredo Acosta [facility] August 27, 2023 8:38am Note Date/Time August 27, 2023 8:38 am [facility] [address] [place] [address] Infect. Disease Progress Note Signed Patient: Seth Murphy MR#: [id number] : 1955 Acct:[id number] Age/Sex: 67 / M Adm Date: 4 Loc: 4N Room: [address] [place] [address] Type: ADM IN Attending Dr: Denice Dahl [...] 100 mls @ 25 mls/hr IV Q12H [facility] Last Admin: 08/27/23 01:29 Dose: Not Given Sodium Chloride (0.9% Sodium Chloride 1,000 Ml) 1,000 mls @ 0 mls/hr MISCELLANE.Q0M PRN PRN Reason: Dialysis Stop: 08/25/24 09:07 Last Admin: 08/26/23 15:35 Dose: 999 mls/hr Insulin Aspart (Insulin Aspart 300 Units/3 Ml Insuln.Pen) 0 units SUBCUT TID.WM.HS [facility]; Protocol Stop: 08/24/24 16:59 Last Admin: 08/26/23 22:57 Dose: 14 units Insulin Glargine (Insulin Glargine 300 Units/3 Ml Insuln.Pen) 40 units SUBCUT QHS [facility] Stop: 08/24/24 21:59 Last Admin: 08/26/23 22:36 Dose: 40 units Levothyroxine Sodium (Levothyroxine 100 Mcg Tablet) 100 mcg PO DAILY.0630 [facility] Stop: 08/26/24 06:29 Last Admin: 08/27/23 06:56 Dose: 100 mcg Liothyronine Sodium (Liothyronine 5 Mcg Tablet) 5 mcg PO QAM [facility] Stop: 08/25/24 08:59 Last Admin: 08/26/23 09:53 Dose: 5 mcg Metoprolol Tartrate (Metoprolol Tartrate 25 Mg Tablet) 25 mg PO BID [facility] Stop: 08/25/24 17:59 Midodrine (Midodrine 5 Mg Tablet) 5 mg PO DAILY PRN PRN Reason: Hypotension Stop: 08/25/24 09:07 Last Admin: 08/26/23 14:59 Dose: 5 mg Morphine Sulfate (Morphine Sulfate 2 Mg/Ml Vial) 2 mg IV-PUSH Q4H PRN PRN Reason: Pain Scale 8 - 10 Paricalcitol (Paricalcitol 10 Mcg/2 Ml Vial) 7 mcg IV-PUSH MoWeFr@1000 [facility] Stop: 08/25/24 09:59 Last Admin: 08/26/23 [...] culture pending Documented By: Alfredo Acosta MD 08/27/23 0832 Signed By: <Electronically signed by MD Alfredo Acosta> 08/27/23 0838 [facility] Work Phone: [phone]) 579-534007-15-2024 Consult note Author CWCristo Pop [facility] August 26, 2023 7:13pm Note Date/Time August 26, 2023 7:01 pm [facility] [address] [place] [address] Podiatry Consult Note Signed Patient: Seth Murphy MR#: [id number] : 1955 Acct:[id number] Age/Sex: 67 / M Adm Date: 4 Loc: Room: [address] [place] [address] Type: ADM IN Attending Dr: Denice Dahl [...] Patient had been seen recently at the [facility] with Dr. Schwarz, who [...] negative unless noted below or in HPI [facility] Medical History MRSA bacteremia Cellulitis of left [...] management for treatment. Documented By: Romeo Pop,ISAIAH, MS, CWS 08/11 07/04 4031 Signed By: <Electronically signed by ISAIAH Pop> 08/26/23 207 [facility] Work Phone: 1(603) 420-298307-15-2024 Consult note Author Marina Agudelo [facility] August 26, 2023 2:32pm Note Date/Time August 26, 2023 2:22 pm [facility] [address] [place] [address] Nephrology Consult Note Signed Patient: Seth Murphy MR#: [id number] : 1955 Acct:[id number] Age/Sex: 67 / M Adm Date: 4 Loc: 4N Room: 8Q3665-2 Type: ADM IN Attending Dr: Denice Dahl [...] left big toe. He presented to the [facility] due to suspected infection on his right foot. He is having increased pain and swelling over this past several days. On presentation to the ED he had fever, chills and confusion. He had no leukocytosis but was febrile, tachycardic, normotensive. Sodium 128, glucose 500, lactic acid 2.2. While at [facility] he was started on IV vancomycin and Rocephin. He was transferred here for dialysis and continued sepsis management. Upon arrival to [facility] he was noted to have a fever of 102, tachycardia, blood pressure 150s over 50s. He appeared septic. 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 Patient receives dialysis on MWF schedule at [facility] [place] Nephrology was consulted for ESRD management and [...] negative unless noted below or in HPI [facility] Medical History MRSA bacteremia Cellulitis of left [...] 100 mls @ 25 mls/hr IV Q12H [facility] Last Admin: 08/26/23 00:28 Dose: 25 mls/hr Sodium Chloride (0.9% Sodium Chloride 1,000 Ml) 1,000 mls @ 0 mls/hr MISCELLANE.Q0M PRN PRN Reason: Dialysis Stop: 08/25/24 09:07 Sodium Chloride (0.9% Sodium Chloride 1,000 Ml) 1,000 mls @ 70 mls/hr IV .[id number] [facility] Stop: 08/27/23 00:17 Last Admin: 08/26/23 09:56 Dose: 70 mls/hr Insulin Aspart (Insulin Aspart 300 Units/3 Ml Insuln.Pen) 0 units SUBCUT TID.WM.HS [facility]; Protocol Stop: 08/24/24 16:59 Last Admin: 08/26/23 09:52 Dose: 3 units Insulin Glargine (Insulin Glargine 300 Units/3 Ml Insuln.Pen) 40 units SUBCUT QHS [facility] Stop: 08/24/24 21:59 Last Admin: 08/25/23 21:51 Dose: 40 units Levothyroxine Sodium (Levothyroxine 100 Mcg Tablet) 100 mcg PO DAILY.0630 [facility] Stop: 08/26/24 06:29 Liothyronine Sodium (Liothyronine 5 Mcg Tablet) 5 mcg PO QAM [facility] Stop: 08/25/24 08:59 Last Admin: 08/26/23 09:53 Dose: 5 mcg Midodrine (Midodrine 5 Mg Tablet) 5 mg PO DAILY PRN PRN Reason: Hypotension Stop: 08/25/24 09:07 Morphine Sulfate (Morphine Sulfate 2 Mg/Ml Vial) 2 mg IV-PUSH Q4H PRN PRN Reason: Pain Scale 8 - 10 Paricalcitol (Paricalcitol 10 Mcg/2 Ml Vial) 7 mcg IV-PUSH MoWeFr@1000 [facility] Stop: 08/25/24 09:59 Prochlorperazine Edisylate (Prochlorperazine [...] Reagan Burger M.D.08/25/2023 5:38 PM Dictation Location: [place] [address] Any impression(s) listed above is documentation that [...] <Electronically signed by MD Marina Agudelo> 08/26/23 1431 [facility] Work Phone: 1(487) 392-270307-15-2024 Progress note Author Denice Dahl [facility] August 26, 2023 9:50am Note Date/Time August 26, 2023 9:50 am [facility] [address] [place] [address] Hospitalist Progress Note Signed Patient: Seth Murphy MR#: [id number] : 1955 Acct:[id number] Age/Sex: 67 / M Adm Date: 4 Loc: 4N Room: [address] [place] [address] Type: ADM IN Attending Dr: Denice Dahl MD Copies to: ~ Date of Service: 08/26/2023 Subjective Subjective Narrative: Patient is a 67 year old male with past medical history of poorly controlled type 2 diabetes, hypertension, coronary artery disease, ESRD on dialysis Saturday, and asthma who presented to [facility] due to suspectedinfected of his left foot. Patient has been complaining of increase pain and swelling of left foot over the past several days. He presented to [facility] withfevers, chills, confusion, chest x-ray with no acute pathology. He was given IVvancomycin and Rocephin at the [facility], no leukocytosis found however fever at [facility] 101 with tachycardia however blood pressure remained [...] oriented to place, time and person HEENT: [place] conjunctiva and NL buccal mucosa Neck: Supple, [...] 60 Mcg/Ml Vial IV-PUSH 08/27/24 09:59 We@1000 [facility] Protocol Dextrose 0 gm 08/25/23 15:29 Dextrose 50% In Water 25 Gm/50 Ml Syringe IV-PUSH 08/24/24 15:28 PRN PRN Hypoglycemia Enoxaparin Sodium 50 mg 08/26/23 10:00 Enoxaparin 30 Mg/0.3 Ml Syringe SUBCUT 08/25/24 09:59 Q12HR.10A.10P [facility] Glucose 0 gm 08/25/23 15:29 Dextrose 40% [...] Sodium Chloride 1,000 Ml IV 08/27/23 00:17 .[id number] [facility] Insulin Aspart 0 units 08/25/23 17:00 [...] Mcg/2 Ml Vial IV-PUSH 08/25/24 09:59 MoWeFr@1000 [facility] Prochlorperazine Edisylate 5 mg 08/25/23 15:26 Prochlorperazine [...] <Electronically signed by Denice Dahl MD> 08/26/23 0990 [facility] Work Phone: [phone] Consult note Author Alfredo Acosta [facility] August 26, 2023 9:13am Note Date/Time August 26, 2023 9:13 am [facility] [address] [place] [address] Infect. Disease Consult Note Signed Patient: Seth Murphy MR#: [id number] : 1955 Acct:[id number] Age/Sex: 67 / M Adm Date: 4 Loc: 4N Room: [address] [place] [address] Type: ADM IN Attending Dr: Denice Dahl [...] negative unless noted below or in HPI [facility] Medical History MRSA bacteremia Cellulitis of left [...] 40 Mg Tablet) 40 mg PO QPM [facility] Stop: 08/24/24 20:59 Last Admin: 08/25/23 21:49 Dose: 40 mg Dextrose (Dextrose 50% In Water 25 Gm/50 Ml Syringe) 0 gm IV-PUSH PRN PRN PRN Reason: Hypoglycemia Stop: 08/24/24 15:28 Glucose (Dextrose 40% Gel 15 Gm Tube) 0 gm PO PRN PRN PRN Reason: Hypoglycemia Stop: 08/24/24 15:28 Heparin Sodium (Porcine) (Heparin 5,000 Unit/Ml Vial) 5,000 unit SUBCUT Q8HR [facility] Stop: 08/24/24 21:59 Last Admin: 08/26/23 06:51 Dose: 5,000 unit Piperacillin Sod/Tazobactam Sod (Zosyn) 4.5 gm in 100 mls @ 25 mls/hr IV Q12H [facility] Last Admin: 08/26/23 00:28 Dose: 25 mls/hr Insulin Aspart (Insulin Aspart 300 Units/3 Ml Insuln.Pen) 0 units SUBCUT TID.WM.HS [facility]; Protocol Stop: 08/24/24 16:59 Last Admin: 08/25/23 21:50 Dose: 12 units Insulin Glargine (Insulin Glargine 300 Units/3 Ml Insuln.Pen) 40 units SUBCUT QHS [facility] Stop: 08/24/24 21:59 Last Admin: 08/25/23 21:51 Dose: 40 units Levothyroxine Sodium (Levothyroxine 100 Mcg Tablet) 100 mcg PO DAILY [facility] Stop: 08/25/24 08:59 Liothyronine Sodium (Liothyronine 5 Mcg Tablet) 5 mcg PO QAM [facility] Stop: 08/25/24 08:59 Morphine Sulfate (Morphine Sulfate [...] cultures pending. Documented By: Alfredo Acosta MD 08/26/2307 Signed By: <Electronically signed by MD Alfredo Acosta> 08/26/23 0913 [facility] Work Phone: 1([phone]) 356-375807-14-2024 History and physical note Author Alon Santiago [facility] August 25, 2023 3:50pm Note Date/Time August 25, 2023 3:47 pm [facility] [address] [place] [address] Hospitalist H&P Signed Patient: Seth Murphy MR#: [id number] : 1955 Acct:[id number] Age/Sex: 67 / M Adm Date: 4 Loc: 4N Room: 0D7097-8 Type: ADM IN Attending Dr: Alon Santiago MD Copies to: MD Alon Dave MD~ HPI DATE OF EXAMINATION: 08/25/23 CHIEF COMPLAINT: Fever, confusion HISTORY OF PRESENT ILLNESS: Patient is a 67 year old male with past medical history of poorly controlled type 2 diabetes, hypertension, coronary artery disease, ESRD on dialysis Saturday, and asthma who presented to [facility] due to suspectedinfected of his left foot. Patient has been complaining of increase pain and swelling of left foot over the past several days. He presented to [facility] withfevers, chills, confusion, chest x-ray with no acute pathology. He was given IVvancomycin and Rocephin at the [facility], no leukocytosis found however fever at [facility] 101 with tachycardia however blood pressure remained [...] except as mentioned elsewhere in the documentation [facility] Medical History MRSA bacteremia Cellulitis of left [...] <Electronically signed by Alon Santiago MD> 08/25/23 1558 [facility] Work Phone: [phone] NotePatient having procedure @ [facility] per Dr. Alarcon. Order & office note emailed to Bernadette senior master scheduler @ Sonia Wright RN Director Physician Services @ [facility], & faxed to LORE Mazariegos @ [facility] office. Notified patient's procedure will be scheduled @ [facility] office will notify patient. [phone] Received call from Delilah @ [facility] relaying patient is scheduled for procedure 06/06/2023 @ [facility] will contact patient with date of procedure & instructions. [facility] scheduled for PAT Saturday06/03/2023 @ 0800 am @ [facility]. Procedure scheduled for 06/06/2023 @ 12 noon arrival time 11 am @ [facility] (case #[id number]) Notified patients Dee Dee date/time for PAT & date/time for procedure, relayed to Dee Dee instructions for procedure will be given to patient during PAT visit.[facility]Comment [facility]: Result Comment: Electronically Signed By: Liya Diehl\Date and Time Signed: 05/29/23 14:14 [id number] NoteSubjective Patient ID: Seth Murphy is a [...] the past 36 hour(s)). No follow-ups on file.[facility]12-27-2023 Note Subjective Patient ID: Seth Murphy [...] visit: End stage renal disease on dialysis ([facility]) - [facility] Dialysis Fistula; Future -Surgical incision [...] the past 36 hour(s)). No follow-ups on file.[facility]12-21-2023 History of Present illness Narrative* Seth [...] hypotension. He has a history of remote PCI/SUPERVISORY CLERK intervention of the LAD in 2018 with [...] ESRD (end stage renal disease) on dialysis ([facility]) 4. Diabetes mellitus of other type without complication, unspecified whether meterman insulin use ([facility]) 5. Essential hypertension 6. Hyperlipidemia, unspecified hyperlipidemia type 7. Never smoked any substance documented in [facility]UnK[facility] Work Phone: 1(241) 305-858112-21-2023 Instructions* Patient Instructions* Sarita Hernandes CMA - [...] time of your visit. [facility] Work Phone: 1([phone]) 403-137412-08-2023 NotePatient: Seth Murphy Procedure Summary Date: 01/18/23 Room / Location: [facility] OPERATING ROOM 06 / [facility] Operating Room Anesthesia Start: 1008 Anesthesia Stop: 1150 Procedure: Right Radial Cephalic Fistula Creation - CPT Codes 55179,82024,17940,68298 (Right: Arm Upper) Diagnosis: End stage renal disease on dialysis ([facility]) Encounter for pre-operative examination (End stage renal disease on dialysis (CMS/[facility]) [N18.6, Z99.2]) (Encounter for pre-operative examination [Z01.818]) [...] PACU per anesthesia protocol. No notable events documented.[facility]12-08-2023 Note Airway Date/Time: 01/18/2023 10:16 AM Urgency: elective Airway not difficult General Information and Staff Patient location during procedure: OR Anesthesiologist: Maranda Chavez MD Resident/GLASS MECHANIC/CAA: Katerin Chung MD Performed: resident/GLASS MECHANIC/CAA Indications and Patient Condition Indications for airway [...] (cm): 23 Number of attempts at approach: 1UnOhio[facility] NotePatient: Seth Murphy Procedure Information Date/Time: 01/18/23 1000 Procedure: Right Upper Extremity Fistula Creation - CPT Codes 80172,32448,88218,21178 (Right) Location: [facility] OPERATING ROOM 06 / [facility] Operating Room Surgeons: Greg Alarcon MD [...] products. Plan discussed with attending. Additional Equipment RequestsW[facility]andot [facility]12-08-2023 Note Pre-operative History and Physical Seth [...] Heart disease Hyperlipidemia Hypertension Hypothyroidism Myocardial infarction ([facility]/HCC) Peripheral vascular disease ([facility]/HCC) Past Surgical History: Procedure Laterality Date [...] Ana Phan MD PGY-4 Vascular Surgery Resident 01/18/23[facility]12[facility] NoteArteriovenous Fistula Procedure Note Indications: The [...] the patient was taken back to the Manufacturing Engineer Assembly placed in supine position appropriate cardiopulmonary except [...] present and scrubbed for the entire procedure. [facility]11-30-2023 NoteasW[facility]11-29-2023 NoteSubjective Patient ID: Seth Murphy is [...] assisted maturation with Dr. Alarcon in laborer syrup machine -Discussed the risks, benefits, alternatives of the procedure with the patient and time was alloted for all questions to be answered. Patient provided both verbal and written consent No diagnosis found. No orders of the defined types were placed in this encounter. No results found for this or any previous visit (from the past 36 hour(s)). No follow-ups on file.[facility]09-05-2023 Note aSubjective Patient ID: Seth Murphy [...] the past 36 hour(s)). No follow-ups on file.[facility]09-05-2023 Note aSubjective Patient ID: Seth Murphy [...] without issues- dial[place]zes near [place]. Review of Systems Neurological: Positive for numbness. [...] ESRD (end stage renal disease) on dialysis ([facility]) Vascular US upper extremity hemodialysis access duplex right #ESRD on HD using CVC currently with recent creation R RCAVF - hold off on cannulation as AVF matures -continue with HD via CVC - hand/record clerk salesperson exercises demonstrated - US of AVF at 6-8 weeks and f/up at that time, sooner if neededW[facility]andot [facility] Hospital08-23-2023 NotePatient: Seth Murphy Procedure Summary Date: 10/02/22 Room / Location: [facility] OPERATING ROOM 06 / [facility] Operating Room Anesthesia Start: 1705 Anesthesia Stop: 1846 Procedure: CREATION, RADIOCEPHALIC AV FISTULA (Right: Arm Lower) Diagnosis: (End stage renal disease) Surgeons: Greg Alarcon MD Responsible Provider: Petra Degroot MD Anesthesia Type: general ASA Status: 4 Anesthesia Type: general Vitals Value Taken Time BP 105/68 10/02/221858 Temp 36.2 ???C (97.2 ???F) 10/02/221843 Pulse 74 10/02/221858 Resp 18 10/02/221858 SpO2 95 % 10/02/221858 Anesthesia Post Evaluation Patient location during evaluation: bedside Patient participation: complete - patient participated Level of consciousness: awake and alert Pain score: 0 Pain management: adequate Airway patency: patent Cardiovascular status: acceptable Respiratory status: acceptable Hydration status: acceptable Patient is hemodynamically stable and is able to be discharged from PACU per anesthesia protocol. No notable events documented.[facility]08-22-2023 Note Patient: Seth Murphy Procedure Summary Date: 10/02/22 Room / Location: [facility] OPERATING ROOM 06 / [facility] Operating Room Anesthesia Start: 1705 Anesthesia Stop: Procedure: CREATION, RADIOCEPHALIC AV FISTULA (Right: Arm Lower) Diagnosis: (End stage renal disease) Surgeons: Greg Alarcon MD Responsible Provider: Perta Degroot MD Anesthesia Type: general ASA Status: 4 Anesthesia Post Transport Note Transport to: PACU O2 Route: room air Patient Monitor: direct observation Transport: uneventful Patient condition is: stableUnOhioHealth [facility]08-22-2023 Note Airway Date/Time: 10/02/2022 5:21 PM Urgency: elective Airway not difficult General Information and Staff Patient location during procedure: OR Anesthesiologist: Petra Degroot MD Resident/GLASS MECHANIC/CAA: LATRELL Luciano Performed: resident/GLASS MECHANIC/CAA Indications and Patient Condition Indications for airway [...] ETT fit tight but without resistance through cords/tracheaUnOhioHealth [facility]08-22-2023 NotePatient: Seth Murphy Procedure Information Date/Time: 10/02/22 1430 Procedure: CREATION, AV FISTULA (Right) - start as last case Location: [facility] OPERATING ROOM 06 / [facility] Operating Room Surgeons: Greg Alarcon MD [...] with patient who. Plan discussed with resident, GLASS MECHANIC and CAA. Additional Equipment RequestsUnOhioHealth [facility] City [facility]06-29-2023 Evaluation note* Encounter Date Diagnosis Assessment [...] dialysis fistula, subsequent encounter (ICD-10 - T82.7XXD) SNOBSWAP Other 06-09-2023 NoteMicrobiology PROCEDURE: Blood Culture Charcoal [R1] SOURCE: Blood BODY SITE: COLLECTED DATE/TIME: 07/13/2022 16:50 EDT RECEIVED DATE/TIME: 07/13/2022 17:35 EDT START DATE/TIME: 07/13/2022 17:35 EDT FREE TEXT SOURCE: HD CVC venous lumen Aaron FISH, Cristino Walker MD, Cristino FINAL REPORTS Final Report [] Verified Date/Time: 07/20/2022 18:00 EDT No growth at 7 days. Performing Locations R1: [facility] performed at: [facility], [address] [place] [address], Njuzfn[address] StreetComment on above:Performed By: #### [id number] ####[address] [id number] NoteMicrobiology PROCEDURE: Blood Culture Charcoal [R1] SOURCE: Blood BODY SITE: COLLECTED DATE/TIME: 07/13/2022 16:50 EDT RECEIVED DATE/TIME: 07/13/2022 17:33 EDT START DATE/TIME: 07/13/2022 17:33 EDT FREE TEXT SOURCE: HD CVC Aaron FISH, Cristino Walker MD, Cristino FINAL REPORTS Final Report [] Verified Date/Time: 07/20/2022 18:00 EDT No growth at 7 days. Performing Locations R1: This test was performed at: [facility], [address] [place] [address], [address] [place] [address], Ddfong18 [address] StreetComment on above:Performed By: #### [id number], [id number], [id number] #### [facility] [address] [place] [address] [id number] NoteMicrobiology PROCEDURE: Blood Culture Charcoal [R1] SOURCE: Blood BODY SITE: Arm R COLLECTED DATE/TIME: 07/12/2022 17:44 EDT RECEIVED DATE/TIME: 07/12/2022 18:33 EDT START DATE/TIME: 07/12/2022 18:33 EDT FREE TEXT SOURCE: IV start PHILLIPS AGACNP-BC, Nathalie PHILLIPS AGACNP-BC, Nathalie FINAL REPORTS Final Report [] Verified Date/Time: 07/20/2022 07:00 EDT No growth at 7 days. Performing Locations R1: This test was performed at: [facility], [address] [place] [address], [id number] [place] [address], [address] [place], [place] [address]Comment on above:Performed By: #### [id number], [id number], [id number] #### [facility] [address] [place] [address] [id number] NoteMicrobiology PROCEDURE: Blood Culture Charcoal [R1] SOURCE: Blood BODY SITE: Hand R COLLECTED DATE/TIME: 07/12/2022 16:34 EDT RECEIVED DATE/TIME: 07/12/2022 16:43 EDT START DATE/TIME: 07/12/2022 16:43 EDT FREE TEXT SOURCE: PHILLIPS AGACNP-BC, Nathalie PHILLIPS AGACNP-BC, Nathalie FINAL REPORTS Final Report [] Verified Date/Time: 07/19/2022 18:00 EDT No growth at 7 days. Performing Locations R1: This test was performed at: [facility], [address] [place] [address], [id number] [place] [address], [address] [place], [place] [address]Comment on above:Performed By: #### [id number], [id number], [id number] #### [facility] [address] [place] [address] [phone] NoteAdmission and Discharge Information Admit Date/Time:07/12/2022 15:58 Admitting Physician - Michael FISH, Feuntes Lemons Consulting Physician - Aaron FISH, Cristino [...] with contrast (08/04/2020), Removal of catheter (07/07/2020), 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), AV - Creation of arteriovenous fistula (03/31/2020), AV fistula recirculation (08/06/2019), Abdominal hernia, Cholecystectomy, H/O: tracheostomy, Placement of stent in cardiac conduit. Hospital Course 86-year-old male with PMH of CAD, [place], chronic systolic heart failure, HTN, HLD, T2IDDM, peripheral neuropathy, ESRD on HD, hypothyroidism, b/l LE venous insufficiency, venous stasis ulcer?chronic. -Patient presented to [facility] as a direct admit at the request [...] be reviewed and discussed with PCP or concert promoter MD once the hospital butadiene converter utility operator is able to reach him/her. Ispent [...] made to ensure accuracy, however, inadvertently computerized loss prevention coordinator mistakes may be present. Significant Findings No qualifying data available. Services Consulted Consult to Dietitian Adult - Ordered -- 07/17/22 13:20:10 EDT Consult to Infectious Disease Physician - Ordered -- 07/13/22 11:46:00 EDT, LUE infected AVF, cellulitis, Consult and Co-manage Consult to Nephrology - Ordered -- 07/12/22 15:52:00 EDT, ESRD, Consult and Co-manage (more content not included)...[facility] above:Result Comment: Electronically Signed By: Nathalie HAAS\.br\Date and Time Signed: 07/19/22 17:35 EDT\.br\Electronically Co-Signed By: Chandrakant LEW MD\.br\Date and Time Co-Signed: 07/19/2316:38 [id number] NoteEchocardiology Procedure Exam Date/Time Accession # Ordering Echo Transthoracic 07/19/2022 16:30 EDT [id number] Nathalie HAAS Complete CPT code 13823 92001 Reason for Exam (Echo Transthoracic Complete) MRSA in AVF;Other (please specify) Report [facility] [address] [place] [address] Adult Echocardiogram Report Name: SETH MURPHY Study Date: 07/19/2022 03:59 PM BP: 101/54 mmHg Patient Location: [address] [place] [address] HR: 81 : 1955 Gender: Male Height: 71 in Age: 66 yrs Ethnicity: WHT Weight: 214 lb Reason For Study: Other (please specify) BSA: 2.2 m2 History: HTN,CAD,Palpitations,CHF Ordering Physician: Howard Performed By: Lorena Funez, INGRIS Interpretation Summary No comparison study is available. [...] Loco Menjivar MD Transcribed by: BO Technologist: [facility]06-08-2023 Note CRM entered the room to discuss dc planning. PCP, DME and insurance discussed. Patient is alert andinvolved in plan of care. Contact information provided and whiteboard updated. Pt will transport via van, [facility] will cover cost per Nicole Padilla. Pt will receive 4wks of IV vanco at HD, HD to be notified. Pt's made aware of plan. No further needs. Ant dc today. CRM to follow.[facility] CampusComment on above:Result Comment: Electronically Signed By: Sarah Tena.asael\Date and Time Signed: 07/19/22 10:50 [id number] NoteMicrobiology PROCEDURE: Tissue Culture [R1] SOURCE: Tissue [...] Result called to Peg Prado (3S) by [facility] and results read back for confirmation on [...] Locations R1: This test was performed at: [facility], [address] [place] [address], [id number]- , , YeeimcWayne Healthcare Main CampusComment on above:Performed By: #### [id number], [id number], [id number] #### [facility] [address] [place], [place] [phone] NoteCRM entered the room to discuss dc [...] to HD. ANt dc 07/19or 07/20. van transport.[facility] CampusComment on above:Result Comment: Electronically Signed By: Sarah Tena\Date and Time Signed: 07/17/22 11:30 [id number] NoteCRM entered the room to discuss dc planning. PCP, DME and insurance discussed. Patient is alert andinvolved in plan of care. Contact information provided and whiteboard updated. Per PT pt rec SNF, pt agreeable to [facility], they have accepted. Pt will need 3MN stay. Plan to see vascular Saturday. Pt's friend will transport to HD. Ant dc 07/16. CRM to follow.[facility] CampusComment on above:Result Comment: Electronically Signed By: Sarah Tena.asael\Date and Time Signed: 07/14/22 13:10 [id number] NoteMicrobiology PROCEDURE: Wound Culture [R1] SOURCE: Wound BODY SITE: Arm L COLLECTED DATE/TIME: 07/12/2022 16:45 EDT RECEIVED DATE/TIME: 07/12/2022 16:53 EDT START DATE/TIME: 07/12/2022 16:53 EDT FREE TEXT SOURCE: ALAN VEGAS, Nathalie VEGSA, Nathalie FINAL REPORTS Final Report [] Verified Date/Time: 07/14/2022 11:20 EDT 2+ Methicillin-Resistant Staphylococcus aureus MRSA MRSA Result called to Natalie Foreman (3S) by CSS and results read back for confirmation on [...] Rifampin <=1 S Tetracycline <=4 S Trimethoprim/ >38 R Sulfa Vancomycin 1 S Performing Locations R1: This test was performed at: [facility], [address] [place] [address], [id number]- , [place], PudljcWayne Healthcare Main CampusComment on above:Performed By: #### [id number], [id number], [id number] #### [facility] [address] [place] [address] [phone] NotePT Evaluation done this date. Pt. with on AM-PAC this date. Very weak and fatigued. Difficulty standing upright to use FWW safely. Recommend SNF.[facility]06-01-2023 NoteBasic Information Admit Date/Time:07/12/2022 14:01 Chief Complaint r/o infection of fistula History of Present Illness 86-year-old male with PMH of CAD, [place], chronic systolic heart failure, HTN, HLD, T2IDDM, peripheral neuropathy, ESRD on HD, hypothyroidism, b/l LE venous insufficiency, venous stasis ulcer?chronic. -Patient presented to [facility] as a direct admit at the request [...] Low (07/12/22 16:34:00) Potassium Lvl: 4.2 mmol/L (07/12/22 16:34:00) Chloride: 98 mmol/L Low (07/12/22 16:34:00) CO2: 25 mmol/L (07/12/22 16:34:00) AGAP: 15 mEq/L (07/12/22 16:34:00) Calcium Lvl: 9.2 mg/dL (07/12/22 16:34:00) Glucose Cap: 191 mg/dL High (07/12/22 16:44:00) POC Device SN: [id number] (07/12/22 16:44:00) POC User ID: [id number] (07/12/22 16:44:00) POC Username: MIKEY CUEVAS (07/12/22 [...] artery disease (I25.10: Atherosclerotic heart disease of [place] coronary artery withoutangina pectoris) -Aspirin, atorvastatin, 4. Chronic systolic heart failure (I50.22: Chronic systolic (congestive) heart failure) Stable -Fluid mgt. per HD 5. Insulin dependent type 2 diabetes mellitus (E11.9: Type 2 diabetes mellitus without complications) Accuchecks AC/HS w/ SSI prn -Home regimen: Insulin 70/30 14u HS -Decrease insulin 70/30 to 7u HS - uptitrate as tolerated -Hypoglycemic p (more content not included)...[facility] CampusComment on above:Result Comment: Electronically Signed By: Nathalie HAAS\.br\Date and Time Signed: 07/12/22 17:08 EDT\.br\Electronically Co-Signed By: Fuentes Rodriguez MD\.br\Date and Time Co-Signed: 07/12/22 17:46 EDT 07-09-2022 [...] Follow these instructions at home: Medicines Take mdfm-vbn-kgxxoza and prescription medicines only as told by [...] provider. Document Revised: 07/24/2021 Document Reviewed: 07/24/2021 [employer] Patient Education 2022 [employer]. Follow Up Care 07/09/2022 17:23:13 With:Greg Alarcon Address: [address] [place], [place] [address] [address]- Business (1) When:07/12/2022 18:59:06 Comments:Follow-up with Dr. Alarcon for further evaluation of your fistula. With:Nav Alejo Address: [address] [place] [address] [address] [address]- Business (1) When:07/12/2022 18:58:50 Comments:Follow-up with your primary care provider in 3 to 5 days. If symptoms worsen, do not improve, or new symptoms arise please report back to emergency department for further evaluation. [facility]05-28-2023 NoteAdmission and Discharge Information Admitting Physician - [...] with contrast (08/04/2020), Removal of catheter (07/07/2020), 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), AV - Creation of arteriovenous fistula [...] follow up with PCP and his outpatient pharmacy buyer. Physical Exam General: alert, no acute distress [...] 72.9 % Lymph Auto - 9.1 % Clayton Auto - 16.7 % Eos Auto - 1.0 % Basophil Auto - 0.3 % Neutro Absolute - 5.2 E9/L Lymph Absolute - 0.6 E9/L Clayton Absolute - 1.2 E9/L Eos Absolute - [...] - 146 mg/dL POC Device SN - [id number] POC User ID - [id number] POC Username - MIKKI LING CBC w/ [...] Greg Alarcon 08/06/2022 10:00 AM EDT [address] [facility] [place] [address]- Business (1) Additional Instructions: Nav Alejo 07/13/2022 11:15 AM EDT [address] [place] [address] [place] [address]- Business (1) Additional Instructions: Patient Education CV - Cardiovascular Discharge Instructions (CUSTOM)[facility] Comment on above:Result Comment: Electronically Signed By: DAVONTE FISH, Pedro\.br\Date and Time Signed: 07/08/22 09:40 [id number] Note [id number]:127[facility] 07-02-2022 NoteBasic Information Accompanied by: No Accompaniment [...] artery disease (I25.10: Atherosclerotic heart disease of [place] coronary artery withoutangina pectoris) - stable, continue [...] diabetes mellitus Pseudophakia Thr (more content not included)...[facility] CampusComment on above: Result Comment: Electronically Signed By: DAVONTE FISH, Pedro\.br\Date and Time Signed: 07/02/22 17:10 [id number] Hospital Discharge instructions Patient Education 03/15/2022 14:06:07 [...] relax (sedative) during your procedure. Medicines Take iggu-hnr-kbnhbhz and prescription medicines only as told by your health care provider. Puncture site care Follow instructions from your health care provider about how to take care of the site where catheters were inserted. Make sure you: ?Wash your hands with soap and water before you change your bandage (dressing). If soap and water are not available, use hand glazing department supervisor. ?Change your dressing as told by your [...] told by your health care provider. Take guey-jgp-degfxie and prescription medicines only as told by [...] 06/14/2014 Document Revised: 02/28/2018 Document Reviewed: 02/28/2018 Elsevier Patient Education 2020 [employer] Follow Up Care 03/15/2022 11:30:19 With:Greg Alarcon Address: [facility] [address] [id number] Business (1) When: Unknown Comments:as needed [facility]02-02-2023 Evaluation + Plan noteExtracted from: Title:Procedure Note [...] Oxygen Protocol Patient Education Saline Lock Insert [facility]09-22-2022 Hospital Discharge instructions Patient Education 11/02/2021 13:11:32 [...] relax (sedative) during your procedure. Medicines Take mhft-wit-otazzlj and prescription medicines only as told by your health care provider. Puncture site care Follow instructions from your health care provider about how to take care of the site where catheters were inserted. Make sure you: ?Wash your hands with soap and water before you change your bandage (dressing). If soap and water are not available, use hand glazing department supervisor. ?Change your dressing as told by your [...] told by your health care provider. Take xvih-xgq-wybondk and prescription medicines only as told by [...] 06/14/2014 Document Revised: 02/28/2018 Document Reviewed: 02/28/2018 [employer] Patient Education 2020 [employer]. Follow Up Care 10/27/2021 08:22:09 With:Greg Alarcon Address: [address] [place] [phone] Business (1) When: Unknown Comments:Call for followup appointment if needed With:Nav Alejo Address: [address] [place] [id number] Business (1) When: Unknown [facility] No data available for this section [facility] note Future Appointments Appointment Date:08/06/2022 10:00:00 AM Scheduled Provider:Dorian FISH, Greg Lopez Location:.[facility] Appointment Type:Vascular Follow Up (FT) [facility] Future Appointments Appointment Date:07/16/2022 12:00:00 PM Scheduled Provider: Location:[facility] Appointment Type:Surgery FT [facility] Future Appointments Appointment Date:06/18/2023 01:00:00 PM Scheduled Provider: [facility] Type:US Duplex Procedures (FT) Future Scheduled Tests Radiology* US PVR Lower EXT Complete Bilat 06/18/23 [facility]* Diagnosis Arteriosclerotic heart disease Coronary atherosclerosis of unspecified type of vessel, [place] or graft S/P PTCA (percutaneous transluminal coronary angioplasty) Postsurgical percutaneous transluminal coronary angioplasty status ESRD (end stage renal disease) on dialysis ([facility]) End stage renal disease Diabetes mellitus of other type without complication, unspecified whether detention insulin use ([facility]) Essential hypertension Unspecified essential hypertension Hyperlipidemia, unspecified hyperlipidemia type Never smoked any substance documented in this encounter [facility] Work Phone: Evaluation note* Diagnosis Onset [...] arthritis of left foot acute Diabetes mellitus [facility] Work Phone: Evaluation note* Diagnosis Onset Date [...] acute Type 2 diabetes mellitus with hyperglycemia [facility] Work Phone: Evaluation note* Diagnosis Onset Date [...] acute Diabetes mellitus with diabetic neuropathy acute [id number] acute ESRD (end stage renal disease) acute Fever acute Osteomyelitis acute Peripheral arterial disease acute PVD (peripheral vascular disease) acute Secondary hyperparathyroidism acute Septic shock acute Severe sepsis acute Type 2 diabetes mellitus wit h diabetic chronic kidney disease acute Ulcer of foot acute Ventricular bigeminy acute Diabetes mellitus chronic [facility] Work Phone: Evaluation note* Diagnosis Onset [...] Benign hypertension with end-stage renal disease acute Deep vein thrombosis of right lower extremity acute Diabetes mellitus with diabetic neuropathy acute [id number] acute ESRD (end stage renal disease) acute Osteomyelitis acute Peripheral arterial disease acute PVD (peripheral vascular disease) acute Secondary hyperparathyroidism acute Type 2 diabetes mellitus wit h diabetic chronic kidney disease acute Ulcer of foot acute Ventricular bigeminy acute Diabetes mellitus chronic Cellulitis resolved Septic shock resolved [facility] Work Phone: Evaluation note* Diagnosis Onset Date Resolution Status Anemia acute Anemia of renal disease acut e Benign hypertension with end-stage renal disease acute Deep vein thrombosis of right lower extremity acute Diabetes mellitus with diabetic neuropathy acute [id number] acute ESRD (end stage renal disease) acute Osteomyelitis acute Peripheral arterial disease acute PVD (peripheral vascular disease) acute Secondary hyperparathyroidism acute Type 2 diabetes mellitus wit h diabetic chronic kidney disease acute Ulcer of foot acute Ventricular bigeminy acute Diabetes mellitus chronic Cellulitis resolved Septic shock resolved [facility] Work Phone: History and physical note Author Gabriel Gould [facility] June 21, 2023 10:20pm Note Date/Time June 21, 2023 9:30p m [facility] [address] [place] [address] Hospitalist H&P Signed Patient: Seth Murphy MR#: [id number] : 1955 Acct:[id number] Age/Sex: 67 / M Adm Date: 4 Loc: Room: 9D1009-1 Type: ADM IN Attending Dr: Gabriel Gould DO Copies to: MD aGbriel Dave, DO~ HPI DATE OF EXAMINATION: 06/21/23 [...] the past couple of days and his pharmacy buyer subsequently told him to come to the hospital. Chest x-ray performed emergency room shows worsening osteomyelitis of the left great toe involving the sesamoids, distal first metatarsal, and proximal phalanx of the great toe. She received a dose ofIV vancomycin and was subsequent admitted to the hospital. [facility] Medical History (Updated 05/09/23 @ 13:26 by [...] % (Auto) 7.5 % (.) 06/21/23 19:35 Clayton % (Auto) 16.2 % (.) 06/21/23 19:35 Eos % (Auto) 1.1 % (.) 06/21/23 19:35 Baso % (Auto) 0.6 % (.) 06/21/23 19:35 Nucleat RBC Rel Count 0.1 /100 WBC (0-0.5) 06/21/23 19:35 Neut # (Auto) 5.4 x10E3/uL (1.8-7.7) 06/21/23 19:35 Lymph # (Auto) 0.5 x10E3/uL (1.00-4.8) L 06/21/23 19:35 Clayton # (Auto) 1.2 x10E3/uL (0.0-0.8) H 06/21/23 [...] <Electronically signed by Gabriel Gould DO> 06/21/232219 [facility] Work Phone: History general Narrative - [...] LEG 2010 Hospitalization History Heart attack 04-16-18 [id number] Other Hospital Discharge instructions No data available for this section [facility] No data available for this section [facility] (narrative)* Consultation (Routine) - Authorized Specialty Diagnoses / Procedures Referred By Contzaida t Referred To Contact Cardiology Diagnoses Arteriosclerotic heart disease Procedures Follow Up In Cardiology Seth Ying DO [address] [facility] [address] [place] [address] Seth Ying, [address] [facility] [address] [place] [address] Referral ID Status Reason Start Date Expiration Date V isits Requested Visits Authorized [id number] Authorized 01/31/2023 01/31/2024 1 1 [facility] Work Phone: Summary Purpose Family History [...] COVID illness in 2019. He underwent anterior WY with PCI chronic total occlusion of the proximal through mid LAD x2 drug-eluting stents in March 2018; follow-up echocardiogram revealed low normal left ventricular function with ejection fraction of 50% in September 2018. In March 2020 he underwent COVID infection with prolonged intubation and hospitalization in [place] with multiorgan failure details of which have [...] He has a history of ASHD with SUPERVISORY CLERK intervention of the LAD in April 2018 [...] bilateral feet wounds bilateral feet wounds [facility] 04/16/23 Reason for Visit Anemia of [...] bilateral feet wounds bilateral feet wounds [facility] 04/16/23 L foot wound, hx diabetic [...] lower extremity Diabetes mellitus with diabetic neuropathy [id number] ESRD (end stage renal disease) Fever Osteomyelitis Peripheral arterial disease PVD (peripheral vascular disease) Secondary hyperparathyroidism Septic shock Severe sepsis Type 2 diabetes mellitus with diabetic chronic kidney disease Ulcer of foot Ventricular bigeminy Diabetes mellitus Chief Complaint L foot wound, hx chava betic ulcers L foot wound, hx diabetic ulcers sepsis, osteomyelitis sepsis, osteomyelitis sepsis, osteomyelitis sepsis, osteomyelitis sepsis, osteomyelitis pathology Reason for Visit Anemia of renal dise ase Benign hypertension with end-stage renal disease ESRD (end stage renal disease) Osteomyelitis Secondary hyperparathyroidism Type 2 diabetes mellitus with diabetic chronic kidney disease Type 2 diabetes mellitus with hyperglycemia Anemia Anemia of renal disease Benign hypertension with end-stage renal disease Deep vein thrombosis of right lower extremity Diabetes mellitus with diabetic neuropathy [id number] ESRD (end stage renal disease) Osteomyelitis Peripheral arterial disease PVD (peripheral vascular disease) Secondary hyperparathyroidism Type 2 diabetes mellitus with diabetic chronic kidney disease Ulcer of foot Ventricular bigeminy Diabetes mellitus Cellulitis Septic shock Chief Complaint sepsis, osteomyeliti s sepsis, osteomyelitis sepsis, osteomyelitis sepsis, osteomyelitis sepsis, osteomyelitis pathology Weakness Reason for Visit Anemia Anemia of renal disease Benign hypertension with end-stage renal disease Deep vein thrombosis of right lower extremity Diabetes mellitus with diabetic neuropathy [id number] ESRD (end stage renal disease) Osteomyelitis Peripheral arterial disease PVD (peripheral vascular disease) Secondary hyperparathyroidism Type 2 diabetes mellitus with diabetic chronic kidney disease Ulcer of foot Ventricular bigeminy Diabetes mellitus Cellulitis Septic shock Additional Source Comments (unrecognized sect ion and content) No Status Records FoundNo Status Records FoundNo Status Records FoundNo Status Records FoundNo Status Records FoundNo Status Records FoundNo Status Records FoundNo Status Records FoundNo Status Records FoundNo Status Records FoundNo Status Records FoundNo Status Records FoundNo Status Records Found INFORMATION SOURCE (unrecogn ized section and content) DATE CREATED AUTHOR 09/03/2019 [facility] DATE CREATED AUTHOR AUTHOR'S ORGANIZ ATION 05/19/2020 [facility] DATE CREATED AUTHOR AUTHOR'S ORGANIZ ATION 10/21/2020 [facility] DATE CREATED AUTHOR AUTHOR'S ORGANIZ ATION 01/12/2022 [facility] DATE CREATED AUTHOR AUTHOR'S ORGANIZ ATION 05/19/2022 [facility] DATE CREATED AUTHOR AUTHOR'S ORGANIZ ATION 06/20/2022 [facility] DATE CREATED AUTHOR AUTHOR'S ORGANIZ ATION 11/24/2022 [facility] DATE CREATED AUTHOR AUTHOR'S ORGANIZ ATION 02/03/2023 [facility] DATE CREATED AUTHOR AUTHOR'S ORGANIZ ATION 03/24/2023 [facility] DATE CREATED AUTHOR AUTHOR'S ORGANIZ ATION 06/23/2023 [facility] DATE CREATED AUTHOR AUTHOR'S ORGANIZ ATION 08/31/2023 [facility] DATE CREATED AUTHOR AUTHOR'S ORGANIZ ATION 10/05/2023 [facility] DATE CREATED AUTHOR AUTHOR'S ORGANIZ ATION 11/03/2023 [facility] Care Team (unrecognized sect ion and content) Team Status: Active Member Role Status Dates [...] Marina Agudelo MD Other Provider Active Start: Jessie hilliard 2023 End: September 02, 2023 ELIZABETH AbreuC Other Provider Active Start: August 25, 2023 End: September 02, 2023 Hilario Nunez MD Other Provider Active Start: Charlette walsh 2023 End: September 02, 2023 Benita Renteria MD Other Provider Active Start: Jessie hilliard 2023 End: September 02, 2023 Romeo Pop [...] Marina Agudelo MD Other Provider Active Start: Jessie hilliard 2023 Christi Jansen NP-C Other Provider Active Start: August 26, 2023 [...] Marina Agudelo MD Other Provider Active Start: Jessie hilliard 2023 DEMETRIA Abreu Other Provider Active Start: September 02, 2023 Hilario Nunez MD Attending Provider, Other Provider Active Start: September 02, 2023 Benita Renteria MD Other Provider Active Start: Jessie [email or web address] Romeo Pop DPM Other Provider Active Sta rt: September 02, 2023 Clay Smith MD Other Provider Active Start: September 02, 2023 Team Status: Active Member Role Status Hosea Alejo MD Primary Care Provider Active Start: September 04, 2023 Marina Agudelo MD Attending Provider Active Star t: September 04, 2023 Team Status: Inactive Member Role Status Hosea Alejo MD Primary Care Provider Active Start: September 19, 2023 End: September 19, 2023 Maranda Taylor PA-C Attending Provider Active Start: September 19, 2023 End: September 19, 2023 Team Status: Active Member Role Status Hosea Alejo MD Primary Care Provider Active Start: September 23, 2023 Benita Renteria MD Attending Provider Active Star t: September 23, 2023 Team Status: Active Member Role Status Hosea Alejo MD Primary Care Provider Active Start: September 30, 2023 Benita Renteria MD Attending Provider Active Star t: September 30, 2023 Team Status: Active Member Role Status Hosea Alejo MD Primary Care Provider Active Start: October 05, 2023 Benita Renteria MD Attending Provider Active Star t: October 05, 2023 Team Status: Active Member Role Status Hosea Alejo MD Primary Care Provider Active Start: October 18, 2023 Benita Renteria MD Attending Provider Active Star t: October 18, 2023 Team Status: Inactive Member Role Status Hosea Alejo MD Primary Care Provider Active Start: October 31, 2023 End: October 31, 2023 oRn Levi DO Emergency Provider Active Sta rt: October 31, 2023 End: October 31, 2023 Team Status: Inactive Member Role Status [...] Marina Agudelo MD Other Provider Active Start: M ay 2023 End: June 26, 2023 Daniel Jackson [...] Marina Agudelo MD Other Provider Active Start: M ay 2023 End: June 25, 2023 Daniel Jackson DPM Other Provider Active Sta rt: June 24, 2023 End: June 25, 2023 Diony Devi DO Other Provider Active Start: June 24, 2023 End: June 25, 2023 Team Status: Active Member Role Status Dates Nav Alejo MD Primary Care Provider Active Start: July 08, 2023 Marina Agudelo MD Attending Provider Active Star t: July 08, 2023 Cath Lab Radiology Technician Relationship Specialty Start Date End Date Nav Alejo MD [address] [place] [address] [place] [address] PCP - General 05/22/18 Team Status: Active [...] Hilario Nunez MD Other Provider Active Start: [facility] 2023 End: April 16, 2023 Guicho Chun [...] Hilario Nunez MD Other Provider Active Start: [facility] 2023 Guicho Chun MD Other Provider Active [...] Hilario Nunez MD Other Provider Active Start: [facility] 2023 Guicho Chun MD Attending Prov ider, Other Provider Active Start: April 10, 2023 Alfredo Acosta MD Other Provider Active Start: April 10, 2023 Felisa Win DPM Other Provider Active Star t: April 10, 2023 Team Status: Active Member Role Status Dates Nav Alejo MD Primary Care Provide r, Attending [...] Star t: June 05, 2023 Team Status: Active Member Role [...] June 22, 2023 End: June 26, 2023 REASON FOR VISIT (unrecogniz ed section [...] BE BASED ON THE PRIMARY CLINICAL RECORDS. [employer] provides no warranty or guarantee of the accuracy or completeness of information in this document.
== END 2023-11-12 16:13 | disposition home or self-care (01) ==
LOC: WC 16:12
PROVIDERS: PCP Family Medicine; Visit Provider Physician Assistant
DX: E11.621 Type 2 diabetes mellitus with foot ulcer (principal); L97.511 Non-pressure chronic ulcer of other part of right foot limited to breakdown of skin; L97.528 Non-pressure chronic ulcer of other part of left foot with other specified severity; L89.891 Pressure ulcer of other site, stage 1
CPT/HCPCS: 15275; Q4160

== ENCOUNTER 2023-11-19 15:03 | Outpatient (OUT) | payer MEDICARE, SELFPAY | END 2023-11-19 15:04 | disposition home or self-care (01) | LOC: WC 15:04 | PROVIDERS: PCP Family Medicine; Visit Provider Physician Assistant | DX: E11.621 Type 2 diabetes mellitus with foot ulcer (principal); L97.528 Non-pressure chronic ulcer of other part of left foot with other specified severity; L97.511 Non-pressure chronic ulcer of other part of right foot limited to breakdown of skin; L89.892 Pressure ulcer of other site, stage 2 | CPT/HCPCS: 11043; 15275; Q4160 ==

== ENCOUNTER 2023-11-26 10:09 | Outpatient (OUT) | payer MEDICARE, SELFPAY ==
--- NOTE | 2023-11-26 | XR_ITS ---
The [address] [address] Patient Name: SETH MURPHY MRN: [id number] date: 1955 Sex: M Assigned Patient Location: Current Patient Location: Accession/Order Number: [id number] Exam Date: 11/26/2023 10:11 Report Date: 11/28/2023 07:35 At the request of: LAUREN SCHWARZ Procedure: XR foot RT min 3V PROCEDURE: XR foot RT min 3V COMPARISON: 08/25/2023 HISTORY: RIGHT FOOT PAIN FINDINGS: BONES:Lytic destructive appearance centered at the first and fifth metatarsal phalangeal joints. Persistent flexion of the toes limits their evaluation. SOFT TISSUES:Negative. No visible soft tissue swelling. EFFUSION:None visible. OTHER: Extensive vascular calcifications. Call results initiated through operations XR/XR foot RT min 3V IMPRESSION: Osteomyelitis involving the first and fifth metatarsophalangeal joints Electronically authenticated by: NATHEN LUCIA Date: 11/28/2023 07:35
--- OUTSIDE RECORDS SUMMARY | 2023-11-26 10:18 | XMS_ITS | CCD ---
Author Organization [facility] CliniSymo Care Team Providers Care Agency Development Manager Name Role Phone NAV ALEJO Referring Unavailable [...] Nav Alejo MD Primary Care Provider [phone] SETH YING Attending Unavailable NAV ALEJO Primary Care Unavailable DEDIRE SANDERSON Attending Unavailable SFAELOS, DEIDRE Attending Unavailable [...] Acosta Other Provider ISAIAH Win Other Provider [phone] MD Alon Santiago Attending Provider MARIANN Chatman Emergency Provider DO Gabriel Gould Attending Provider Luisana Alarconamed [...] Unavailable MD Nav Alejo Primary Care Provider [phone] DO Gabriel Gould Admit Provider MD Alfredo Acosta Other Provider MD Marina Agudelo Other Provider ISAIAH Jackson Other Provider [phone] DO Diony Devi Attending Provider MD Alon Santiago Admit Provider DEMETRIA Jansen Other Provider Unavailable MD Hilario Nunez Other Provider MD Benita Renteria Other Provider ISAIAH Pop Other Provider MD Clay Smith Attending Provider MARIANN Taylor Attending Provider [phone] DORIAN, MOHAMED F Admitting Unavailable DORIAN, MOHAMED F Attending Unavailable ANANYA JELANI Attending Unavailable DORIAN, MOHAMED F Attending Unavailable DORIAN, MOHAMED F Referring Unavailable MD Nav Alejo Primary Care Provider [phone] MD Alfredo Acosta Other Provider MD Marina [...] [ticagrelor] Drug Allergy 0 Headache, Nausea/vomitin g [facility] (16 sources) Ticagrelor; Translations: [ticagrelor] Drug Allergy 0 Unknown (qualifier value) [facility] Repository (5 sources) Ticagrelor; Translations: [Brilinta TABS] Drug Allergy Nausea, Headache, Other [facility] DO Work Phone: (13 sources) Coban Bandage; Translations: [Coban Bandage] Drug allergy Eruption of skin (disorder) [facility] (4 sources) Angiotensin Converting Enzyme (Gomez) Inhibitors; Translations: [GOMEZ Inhibitors] Allergy to drug (finding) 3 Hypotension [facility] 3 Repository (3 sources) Beta-Adrenergic Joi; Translations: [Beta Adrenergic Blockers] Allergy to drug (finding) [facility] Work Phone: (3 sources) Bandages MISC; Translations: [Bandages MISC] Allergy to drug (finding) Rash [facility] y 250 DO Work Phone: (1 source) Angiotensin-conve rting enzyme inhibitor agent Propensity to adverse reactions 3 Other [facility] Work Phone: (2 sources) Selective beta-2 adrenoceptor stimulants; Translations: [BETA-ADRENERGIC AGENTS] Propensity to adverse reactions 3 [facility] Work Phone: (2 sources) OTHER; Translations: [OTHER] Propensity to adverse reactions (disorder) 3 [facility] Repository (5 sources) Chlorhexidine Drug Allergy 4 Unknown Reaction [facility] (5 sources) coban Allergy to substance 4 Unknown Reaction [facility] Medications Current Medications Medication Drug Class(es) [...] q12hr, # 20 cap(s), Refills(s) 0, Pharmacy: [facility]/pharmacy #[id number], 178, cm, 07/09/22 17:32:00 EDT, [...] Corticosteroid Start: 12-08-2018 FreeStyle Bre 14 Day [place] - (1 source) Start: 04-15-2018 Freestyle Bre [...] tablet by mouth once daily. 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] Episodic Other aftercare (5 sources) Drug therapy finding; Translations: [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] 05-09-2023 Episodic Other [...] 04-09-2023 04-24-2023 Episodic Other aftercare (1 source) retirement (current) use of insulin; Translations: [RESIDENTIAL CURRENT USE OF INSULIN] Onset: 08-29-2021 Episodic Other aftercare (1 source) 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; Translations: [OTH RESIDENTIAL CURRENT DRUG THERAPY] Onset: 08-29-2021 Episodic Other aftercare (1 source) 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; Translations: [HIGH TENSION TESTER CURRENT USE OF ASPIRIN] Onset: 08-29-2021 Episodic Other aftercare (3 sources) retirement (current) use of antibiotics; Translations: [Long-term (current) [...] Performed By: #### C BC, CMP, MG ####[place] [id number] [place] [id number] [facility] Albumin [Mass/volume] in Ser um or Plasma by Bromocresol green (BCG) dye binding methoOrdered By: Ron Levi on 10-31-2023 Albumin BCG dye [Mass/Vol] 4.2 g/dL 3.5-5.7 [facility] Alkaline phosphatase [Enzyma tic activity/volume] in Serum or PlasmaOrdered By: Ron Levi on 10-31-2023 ALP [Catalytic activity/Vol] 86 U/L Normal 34-104 [facility] Comment on above: Performed By: #### C BC, CMP, MG ####[address] Aspartate aminotransferase [ Enzymatic activity/volume] in Serum or PlasmaOrdered By: Ron Levi on 10-31-2023 AST [Catalytic activity/Vol] 18 U/L Normal 13-39 [facility] Comment on above: Performed By: #### C BC, CMP, MG ####[place] [id number] [facility] Automated basophil %Ordered By: Ron Levi on 10-31-2023 Basophils/100 WBC (Bld) 1.3 % Normal . [facility] Comment on above: Performed By: #### C BC, CMP, MG ####[place] [id number] [facility] Automated basophil countOrde red By: Ron Levi on 10-31-2023 Basophils (Bld) [#/Vol] 0.1 10*3/uL Normal 0.0-0.2 [facility] Comment on above: Result Comment: PERF ORMED BY:[address] [place], [place] [phone] MEDICAL DIRECTORDEAN MCWILLIAMS M.D. Performed By: #### C BC, CMP, MG ####[place] [id number] [facility] Automated blood monocyte cou ntOrdered By: Ron Levi on 10-31-2023 Monocytes (Bld) [#/Vol] 0.9 10*3/uL High 0.0-0.8 [facility] Comment on above: Performed By: #### C BC, CMP, MG ####[address] Automated eosinophil %Ordere d By: Ron Levi on 10-31-2023 Eosinophils/100 WBC (Bld) 1.9 % Normal . [facility] Comment on above: Performed By: #### C BC, CMP, MG ####[address] Automated eosinophil countOr dered By: Ron Levi on 10-31-2023 Eosinophils (Bld) [#/Vol] 0.1 10*3/uL Normal 0.0-0.45 [facility] Comment on above: Performed By: #### C BC, CMP, MG ####[address] Automated monocyte %Ordered By: Ron Levi on 10-31-2023 Monocytes/100 WBC (Bld) 17.0 % Normal . [facility] Comment on above: Performed By: #### C BC, CMP, MG ####[address] Automated neutrophil %Ordere d By: Ron Levi on 10-31-2023 Neutrophils/100 WBC (Bld) 56.6 % Normal . [facility] Comment on above: Performed By: #### C BC, CMP, MG ####[address] Bilirubin.total [Mass/volume ] in Serum or PlasmaOrdered By: Ron Levi on 10-31-2023 Bilirubin [Mass/Vol] 0.7 mg/dL Normal 0.3-1.0 [facility] Comment on above: Performed By: #### C BC, CMP, MG ####[address] Calcium [Mass/volume] in Ser um or PlasmaOrdered By: Ron Levi on 10-31-2023 Calcium [Mass/Vol] 10.4 mg/dL High 8.6-10.3 [facility] Comment on above: Performed By: #### C BC, CMP, MG ####[place] [id number] [facility] Carbon dioxide, total [Moles /volume] in Serum or PlasmaOrdered By: Ron Levi on 10-31-2023 CO2 [Moles/Vol] 27.9 mmol/L Normal 21.0-31.0 [facility] Comment on above: Performed By: #### C BC, CMP, MG ####[address] Chloride [Moles/volume] in S bushra or PlasmaOrdered By: Ron Levi on 10-31-2023 Chloride [Moles/Vol] 93 mmol/L Low 98-107 [facility] Comment on above: Performed By: #### C BC, CMP, MG ####[place] [id number] [facility] Complete Blood Count Auto Di ffon 10-31-2023 Mean Corpuscular HGB Conc 32.7 g/dL Normal 32.5-35.6 [facility] Comment on above: Performed By: #### C BC, CMP, MG ####[place] [id number] [facility] Monocytes/100 WBC (Bld) 18.37 % Normal 0.00-20.00 [facility] Comment on above: Performed By: #### C BC, CMP, MG ####[place] [id number] [facility] NRBC% 0.1 /100{WBC} Normal 0-0.5 [facility] Comment on above: Performed By: #### C BC, CMP, MG ####[place] [id number] [facility] Comprehensive Metabolic Pane raghu 10-31-2023 Albumin [Mass/Vol] 4.2 g/dL Normal 3.5-5.7 [facility] Comment on above: Performed By: #### C BC, CMP, MG ####[address] Creatinine Clr Calc Pharmacy 10.27 Normal [facility] Comment on above: Performed By: #### C BC, CMP, MG ####[address] GFR/1.73 sq M.predicted MDRD (S/P/Bld) [Vol rate/Area] 6.803 mL/min/{1.73_m2} Normal [facility] Comment on above: Performed By: #### C BC, CMP, MG ####[address] Creatinine [Mass/volume] in Serum or PlasmaOrdered By: Ron Levi on 10-31-2023 Creatinine [Mass/Vol] 8.00 mg/dL High 0.70-1.30 [facility] Comment on above: Performed By: #### C BC, CMP, MG ####[address] ECG 12 lead ECGon 10-31-2023 ECG 12 lead ECG Normal [facility] ECG 12 lead ECG Normal [facility] Erythrocyte distribution wid th [Ratio] by Automated countOrdered By: Ron Levi on 10-31-2023 Erythrocyte distribution width (RBC) [Ratio] 18.7 % High 12.0-14.8 [facility] Comment on above: Performed By: #### C BC, CMP, MG ####[address] Erythrocytes [#/volume] in B lood by Automated countOrdered By: Ron Levi on 10-31-2023 RBC (Bld) [#/Vol] 4.82 10*6/uL Normal 3.90-5.60 [facility] Comment on above: Performed By: #### C BC, CMP, MG ####[address] Glucose [Mass/volume] in Ser um or PlasmaOrdered By: Ron Levi on 10-31-2023 Glucose [Mass/Vol] 205 mg/dL High 70-100 [facility] Comment on above: ADA recommended refe rence rangeRandom Glucose Reference Range is dependent on time and content of last meal. Glucose of more than 200 mg/dL in a nonstressed, ambulatory subject supports the diagnosis of Diabetes Mellitus. Result Comment: [place] om Glucose Reference Range is dependent on time and content of last meal. Glucose of more than 200 mg/dL in a nonstressed, ambulatory subject supports the diagnosis of Diabetes Mellitus. ADA recommended reference range Performed By: #### C BC, CMP, MG ####[address] Hematocrit [Volume Fraction] of Blood by Automated countOrdered By: Ron Levi on 10-31-2023 Hematocrit (Bld) [Volume fraction] 44.2 % Normal 38.8-50.0 [facility] Comment on above: Performed By: #### C BC, CMP, MG ####[address] Hemoglobin [Mass/volume] in BloodOrdered By: Ron Levi on 10-31-2023 Hemoglobin (Bld) [Mass/Vol] 14.5 g/dL Normal 13.0-17.0 [facility] Comment on above: Performed By: #### C BC, CMP, MG ####[address] Leukocytes [#/volume] correc jennifer for nucleated erythrocytes in Blood by Automated counOrdered By: Ron Levi on 10-31-2023 WBC corrected for nucl RBC Auto (Bld) [#/Vol] 5.3 10*3/uL 4.1-10.5 [facility] Leukocytes [#/volume] in Blo od by Automated countOrdered By: Ron Levi on 10-31-2023 WBC (Bld) [#/Vol] 5.3 10*3/uL Normal 4.1-10.5 [facility] Comment on above: Performed By: #### C BC, CMP, MG ####[address] Lymphocytes [#/volume] in Bl ood by Automated countOrdered By: Ron Levi on 10-31-2023 Lymphocytes (Bld) [#/Vol] 1.2 10*3/uL Normal 1.00-4.8 [facility] Comment on above: Performed By: #### C BC, CMP, MG ####[place] [id number] Lymphocytes/100 leukocytes i n Blood by Automated countOrdered By: Ron Levi on 10-31-2023 Lymphocytes/100 WBC (Bld) 23.2 % Normal . [facility] Comment on above: Performed By: #### C BC, CMP, MG ####[place] [id number] MCH [Entitic mass] by Automa jennifer countOrdered By: Ron Levi on 10-31-2023 MCH (RBC) [Entitic mass] 30.0 pg Normal 27.5-35.2 [facility] Comment on above: Performed By: #### C BC, CMP, MG ####[address] MCHC Auto (RBC) [Mass/Vol]Or dered By: Ron Levi on 10-31-2023 MCHC (RBC) [Mass/Vol] 32.7 g/dL 32.5-35.6 [facility] MCV [Entitic volume] by Auto mated countOrdered By: Ron Levi on 10-31-2023 MCV (RBC) [Entitic vol] 91.8 fL Normal 83.5-101 [facility] Comment on above: Performed By: #### C BC, CMP, MG ####[place] [id number] [facility] Magnesium [Mass/volume] in S bushra or PlasmaOrdered By: Ron Levi on 10-31-2023 Magnesium [Mass/Vol] 2.2 mg/dL Normal 1.9-2.7 [facility] Comment on above: Result Comment: PERF ORMED BY:[place] [address] [place], [place] [phone] MEDICAL DIRECTORDEAN MCWILLIAMS M.D. Performed By: #### C BC, CMP, MG ####[place] [id number] Monocyte distribution width [Entitic volume] in Blood by AutomatedOrdered By: Ron Levi on 10-31-2023 Monocyte distribution width Auto (Bld) [Entitic vol] 18.37 % 0.00-20.00 [facility] Neutrophils [#/volume] in Bl ood by Automated countOrdered By: Ron Levi on 10-31-2023 Neutrophils (Bld) [#/Vol] 3.0 10*3/uL Normal 1.8-7.7 [facility] Comment on above: Performed By: #### C BC, CMP, MG ####[address] No Panel InformationOrdered By: Ron Levi on 10-31-2023 Estimated GFR (CKD-EPI) 6.803 mL/Min [facility] Creatinine Clearance (Chem 10.27 [facility] Nucleated erythrocytes [Pres ence] in Blood by Automated countOrdered By: Ron Levi on 10-31-2023 Nucleated RBC Auto Ql (Bld) 0.1 /100{WBC} 0-0.5 [facility] Platelet mean volume [Entiti c volume] in Blood by Automated countOrdered By: Ron Levi on 10-31-2023 Platelet mean volume (Bld) [Entitic vol] 8.2 fL Normal 6.6-10.1 [facility] Comment on above: Performed By: #### C BC, CMP, MG ####[address] Platelets [#/volume] in Bloo d by Automated countOrdered By: Ron Levi on 10-31-2023 Platelets (Bld) [#/Vol] 134 10*3/uL Low 150-450 [facility] Comment on above: Performed By: #### C BC, CMP, MG ####[address] Potassium [Moles/volume] in Serum or PlasmaOrdered By: Ron Levi on 10-31-2023 Potassium [Moles/Vol] 4.5 mmol/L Normal 3.5-5.1 [facility] Comment on above: Performed By: #### C BC, CMP, MG ####[address] Protein [Mass/volume] in Ser um or PlasmaOrdered By: Ron Levi on 10-31-2023 Protein [Mass/Vol] 8.2 g/dL Normal 6.4-8.9 [facility] Comment on above: Performed By: #### C BC, CMP, MG ####[address] Serum globulin measurement b y calculation (mass/volume)Ordered By: Ron Levi on 10-31-2023 Globulin (S) [Mass/Vol] 4.0 g/dL [facility] Comment on above: Performed By: #### C BC, CMP, MG ####[address] Serum or plasma albumin/glob ulin mass ratioOrdered By: Ron Levi on 10-31-2023 Albumin/Globulin [Mass ratio] 1.1 {ratio} [facility] Comment on above: Performed By: #### C BC, CMP, MG ####[address] Serum or plasma anion gap de terminationOrdered By: Ron Levi on 10-31-2023 Anion gap [Moles/Vol] 18.6 mmol/L High 6.0-15.0 [facility] Comment on above: Performed By: #### C BC, CMP, MG ####[address] Sodium [Moles/volume] in Ser um or PlasmaOrdered By: Ron Levi on 10-31-2023 Sodium [Moles/Vol] 135 mmol/L Low 136-145 [facility] Comment on above: Performed By: #### C BC, CMP, MG ####[address] [place] [address] [facility] Troponin I High Sensitivityo n 10-31-2023 Troponin I High Sensitivity 9.2 pg/mL Normal 0.0-20.0 [facility] Comment on above: Result Comment: PERF ORMED BY:[address] [place], [place] [phone] MEDICAL DIRECTORDEAN MCWILLIAMS M.D. Performed By: #### H S TROP ####[place] [address] [place] [address] [facility] Troponin I.cardiac [Mass/vol ume] in Serum or Plasma by Detection limit <= 0.01 ng/Ordered By: Ron Levi on 10-31-2023 Troponin I.cardiac DL <= 0.01 ng/mL [Mass/Vol] 9.2 pg/mL 0.0-20.0 [facility] Urea nitrogen [Mass/volume] in Serum or PlasmaOrdered By: Ron Levi on 10-31-2023 Urea nitrogen [Mass/Vol] 33 mg/dL High 7-25 [facility] Comment on above: Performed By: #### C BC, CMP, MG ####[address] [address] [facility] XR chest 2V*on 10-31-2023 XR chest 2V* Normal [facility] Laboratory - Chemistry and C hemistry - challengeon 10-18-2023 Potassium [Moles/Vol] 5.2 mmol/L High 3.5-5.1 [facility] BASIC METABOLIC PANLon 09-30 Anion gap [Moles/Vol] 13 mmol/L Normal 5-15 [facility] Comment on above: Performed By: #### B MP #### [facility] ([id number]) [address], [address] [place] [address] Calcium [Mass/Vol] 10.1 mg/dL Normal 8.5-10.5 [facility] Comment on above: Performed By: #### B MP #### [facility] ([id number]) [address], [address] [place] [address] Chloride [Moles/Vol] 96 mmol/L Low 98-109 [facility] Comment on above: Performed By: #### B MP #### [facility] ([id number]) [address], [address] [place] [address] CO2 [Moles/Vol] 26 mmol/L Normal 22-32 [facility] Comment on above: Performed By: #### B MP #### [facility] ([id number]) [address] [place] [address] Creatinine [Mass/Vol] 6.14 mg/dL High 0.60-1.30 [facility] Comment on above: Result Comment: METH OD TRACEABLE TO IDMS STANDARD Performed By: #### B MP #### [facility] ([id number]) [address] [place] [address] GFR/1.73 sq M.predicted among non-blacks MDRD (S/P/Bld) [Vol rate/Area] 9 mL/min/{1.73_m2} Low >59 [facility] Comment on above: Result Comment: Reported eGFR is based on the CKD-EPI 2020 equation that does not use a race coefficient. Performed By: #### B MP #### [facility] ([id number]) [address], [address] [place] [address] Glucose [Mass/Vol] 73 mg/dL Normal 65-[address] [facility] Comment on above: Performed By: #### B MP #### [facility] ([id number]) [address] [address] [place] [address] Potassium [Moles/Vol] 4.3 mmol/L Normal 3.5-5.0 [facility] Comment on above: Performed By: #### B MP #### [facility] ([id number]) [address] [place] [address] Sodium [Moles/Vol] 135 mmol/L Normal 134-[address] [facility] Comment on above: Performed By: #### B MP #### [facility] ([id number]) [address], [address] [place] [address] Urea nitrogen [Mass/Vol] 34 mg/dL High 5-27 [facility] Comment on above: Performed By: #### B MP #### [facility] ([id number]) [address] [place] [address] Glucose Glucometer (BldC) [M ass/Vol]on 10-01-2023 Glucose [Mass/Vol] 77 mg/dL Normal 65-[address] [facility] Laboratory - Chemistry and C hemistry - challengeon 09-30-2023 Potassium [Moles/Vol] 4.3 mmol/L 3.5-5.1 [facility] Laboratory - Chemistry and C hemistry - challengeon 09-23-2023 Potassium [Moles/Vol] 6.0 mmol/L High 3.5-5.1 [facility] No Panel InformationOrdered By: Maranda Taylor on 09-19-2023 Miscellaneous Pathology Test See comment [facility] Comment on above: See report. Scanned copy available in EMR. Pathology Request for Lab Co rpon 09-19-2023 Pathology Request for Lab [place] Normal [facility] Comment on above: Order Comment: PATHA OLOGY SKIN SPECIMEN Result Comment: See report. Scanned copy available in EMR.PERFORMED BY:[facility] [place], [place] [phone] MEDICAL DIRECTORDEAN MCWILLIAMS M.D. Performed By: #### P ATH TO [facility] ####[facility] [place] [address] [facility] Albumin [Mass/volume] in Ser um or Plasma by Bromocresol green (BCG) dye binding methoOrdered By: Hilario Nunez on 09-02-2023 Albumin BCG dye [Mass/Vol] 2.9 g/dL Low 3.5-5.7 [facility] Calcium [Mass/volume] in Ser um or PlasmaOrdered By: Hilario Nunez on 09-02-2023 Calcium [Mass/Vol] 9.5 mg/dL Normal 8.6-10.3 [facility] Comment on above: Performed By: #### R REBECCA SALGUERO ####[facility] [place] [id number] [facility] Capillary blood glucose mike urement by glucometer (mass/volume)Ordered By: Clay Smith on 09-02-2023 Glucose [Mass/Vol] 122 mg/dL Normal [facility] Comment on above: Random Glucose Refer ence Range is dependent on time and content of last meal. Glucose of more than 200 mg/dL in a nonstressed, ambulatory subject supports the diagnosis of Diabetes Mellitus. Result Comment: [place] om Glucose Reference Range is dependent on time and content of last meal. Glucose of more than 200 mg/dL in a nonstressed, ambulatory subject supports the diagnosis of Diabetes Mellitus. Performed By: #### G DARLENE ####Point of Care testing, Carbon dioxide, total [Moles /volume] in Serum or PlasmaOrdered By: Hilario Nunez on 09-02-2023 CO2 [Moles/Vol] 24.3 mmol/L Normal 21.0-31.0 [facility] Comment on above: Performed By: #### R REBECCA SALGUERO ####[facility] [place] [id number] [facility] Chloride [Moles/volume] in S bushra or PlasmaOrdered By: Hilario Nunez on 09-02-2023 Chloride [Moles/Vol] 97 mmol/L Low 98-107 [facility] Comment on above: Performed By: #### R REBECCA SALGUERO ####[place] [address] [place] [id number] [facility] Creatinine [Mass/volume] in Serum or PlasmaOrdered By: Hilario Nunez on 09-02-2023 Creatinine [Mass/Vol] 8.73 mg/dL Significan t change up 0.70-1.30 [facility] Comment on above: Delta: 6.97 on 08/31 Performed By: #### R RAVEN SALGUERONO ####[place] [id number] [facility] Erythrocyte distribution wid th [Ratio] by Automated countOrdered By: Hilario Nunez on 09-02-2023 Erythrocyte distribution width (RBC) [Ratio] 18.4 % High 12.0-14.8 [facility] Comment on above: Performed By: #### R RAVEN SALGUERONO ####[place] [id number] [facility] Erythrocytes [#/volume] in B lood by Automated countOrdered By: Hilario Nunez on 09-02-2023 RBC (Bld) [#/Vol] 3.29 10*6/uL Low 3.90-5.60 [facility] Comment on above: Performed By: #### REBECCA PRUITT ####[place] [id number] [facility] Glucose Poct Glucometerson 0 09-02-2023 Commemt1 Glu2: Cleaned Meter Normal [facility] Comment on above: Result Comment: PERF ORMED BY:[address] [address] [address] [place], [place] [phone] MEDICAL DIRECTORDEAN MCWILLIAMS M.D. Performed By: #### G LULS ####Point of Care testing, Commemt1 Glu2: Cleaned Meter Normal [facility] Comment on above: Result Comment: PERF ORMED BY:[address] [place], [place] [phone] MEDICAL DIRECTORDEAN MCWILLIAMS M.D. Performed By: #### G LULS ####Point of Care testing, Glucose [Mass/Vol] 135 mg/dL Normal [facility] Comment on above: Result Comment: [place] Glucose Reference Range is dependent on time and content of last meal. Glucose of more than 200 mg/dL in a nonstressed, ambulatory subject supports the diagnosis of Diabetes Mellitus. Performed By: #### G LULS ####Point of Care testing, Glucose [Mass/volume] in Ser um or PlasmaOrdered By: Hilario Nunez on 09-02-2023 Glucose [Mass/Vol] 128 mg/dL High 70-100 [facility] Comment on above: ADA recommended refe rence rangeRandom Glucose Reference Range is dependent on time and content of last meal. Glucose of more than 200 mg/dL in a nonstressed, ambulatory subject supports the diagnosis of Diabetes Mellitus. Result Comment: [place] om Glucose Reference Range is dependent on time and content of last meal. Glucose of more than 200 mg/dL in a nonstressed, ambulatory subject supports the diagnosis of Diabetes Mellitus. ADA recommended reference range Performed By: #### Eri SALGUERO CBCNO ####[address] Hematocrit [Volume Fraction] of Blood by Automated countOrdered By: Hilario Nunez on 09-02-2023 Hematocrit (Bld) [Volume fraction] 29.0 % Low 38.8-50.0 [facility] Comment on above: Performed By: #### RAVEN PRUITTNO ####[address] Hemoglobin [Mass/volume] in BloodOrdered By: Hilario Nunez on 09-02-2023 Hemoglobin (Bld) [Mass/Vol] 9.3 g/dL Low 13.0-17.0 [facility] Comment on above: Performed By: #### Eri SALGUERO CBCNO ####[address] Hemogram CBC Without Diffon 09-02-2023 Mean Corpuscular HGB Conc 32.2 g/dL Low 32.5-35.6 [facility] Comment on above: Performed By: #### RAVEN PRUITTNO ####[address] WBC (Bld) [#/Vol] 8.2 10*3/uL Normal 4.1-10.5 [facility] Comment on above: Performed By: #### Eri SALGUERO CBCNO ####[address] Leukocytes [#/volume] correc jennifer for nucleated erythrocytes in Blood by Automated counOrdered By: Hilario Nunez on 09-02-2023 WBC corrected for nucl RBC Auto (Bld) [#/Vol] 8.2 10*3/uL 4.1-10.5 [facility] MCH [Entitic mass] by Automa jennifer countOrdered By: Hilario Nunez on 09-02-2023 MCH (RBC) [Entitic mass] 28.4 pg Normal 27.5-35.2 [facility] Comment on above: Performed By: #### R JOSE M CBCNO ####[facility] [id number] MCHC Auto (RBC) [Mass/Vol]Or dered By: Hilario Nunez on 09-02-2023 MCHC (RBC) [Mass/Vol] 32.2 g/dL Low 32.5-35.6 [facility] MCV [Entitic volume] by Auto mated countOrdered By: Hilario Nunez on 09-02-2023 MCV (RBC) [Entitic vol] 88.0 fL Normal 83.5-101 [facility] Comment on above: Performed By: #### R JOSE M CBCNO ####[facility] [id number] No Panel InformationOrdered By: Clay Smith on 09-02-2023 Bedside Glucose Comment Glu2: cleaned meter [facility] No Panel InformationOrdered By: Hilario Nunez on 09-02-2023 Estimated GFR (CKD-EPI) 6.126 mL/Min [facility] Creatinine Clearance (Chem 9.90 [facility] Phosphate [Mass/volume] in S bushra or PlasmaOrdered By: Hilario Nunez on 09-02-2023 Phosphate [Mass/Vol] 5.3 mg/dL High 2.5-4.5 [facility] Comment on above: Performed By: #### R JOSE M, CBCNO ####[facility] [id number] Platelet mean volume [Entiti c volume] in Blood by Automated countOrdered By: Hilario Nunez on 09-02-2023 Platelet mean volume (Bld) [Entitic vol] 7.5 fL Normal 6.6-10.1 [facility] Comment on above: Result Comment: PERF ORMED BY:[place] [address] [place] [place], [place] [phone] MEDICAL DIRECTORDEAN MCWILLIAMS M.D. Performed By: #### REBECCA PRUITT ####[address] [address] [facility] Platelets [#/volume] in Bloo d by Automated countOrdered By: Hilario Nunez on 09-02-2023 Platelets (Bld) [#/Vol] 343 10*3/uL Normal 150-450 [facility] Comment on above: Performed By: #### REBECCA PRUITT ####[address] [address] [facility] Potassium [Moles/volume] in Serum or PlasmaOrdered By: Hilario Nunez on 09-02-2023 Potassium [Moles/Vol] 4.9 mmol/L Normal 3.5-5.1 [facility] Comment on above: Performed By: #### REBECCA PRUITT ####[address] [address] [facility] Renal Function Panelon 09-01 Albumin [Mass/Vol] 2.9 g/dL Low 3.5-5.7 [facility] Comment on above: Performed By: #### REBECCA PRUITT ####[address] [address] [facility] Creatinine Clr Calc Pharmacy 9.90 Normal [facility] Comment on above: Result Comment: PERF ORMED BY:[place] [address] [address] [place], [place] [phone] MEDICAL JAKE MCWILLIAMS M.D. Performed By: #### REBECCA PRUITT ####[address] [address] [facility] GFR/1.73 sq M.predicted MDRD (S/P/Bld) [Vol rate/Area] 6.126 mL/min/{1.73_m2} Normal [facility] Comment on above: Performed By: #### R REBECCA SALGUERO ####[place] [id number] [place] [id number] [facility] Serum or plasma anion gap de terminationOrdered By: Hilario Nunez on 09-02-2023 Anion gap [Moles/Vol] 14.6 mmol/L Normal 6.0-15.0 [facility] Comment on above: Performed By: #### R RAVEN SALGUERONO ####[address] Sodium [Moles/volume] in Ser um or PlasmaOrdered By: Hilario Nunez on 09-02-2023 Sodium [Moles/Vol] 131 mmol/L Low 136-145 [facility] Comment on above: Performed By: #### R RAVEN SALGUERONO ####[place] [id number] [facility] Urea nitrogen [Mass/volume] in Serum or PlasmaOrdered By: Hilario Nunez on 09-02-2023 Urea nitrogen [Mass/Vol] 32 mg/dL High 7-25 [facility] Comment on above: Performed By: #### R RAVEN SALGUERONO ####[place] [id number] [facility] Anisocytosis [Presence] in B lood by Light microscopyOrdered By: Denice Dahl on 09-01-2023 Anisocytosis Ql (Bld) Moderate Normal [facility] Comment on above: Performed By: #### B MP, DIFF CBC ####[place] [id number] [facility] Basic Metabolic Panelon 08-12 Anion gap [Moles/Vol] 12.4 mmol/L Normal 6.0-15.0 [facility] Comment on above: Performed By: #### B MP, DIFF CBC ####[place] [id number] [facility] Calcium [Mass/Vol] 9.7 mg/dL Normal 8.6-10.3 [facility] Comment on above: Performed By: #### B MP, DIFF CBC ####[address] Chloride [Moles/Vol] 98 mmol/L Normal 98-107 [facility] Comment on above: Performed By: #### B MP, DIFF CBC ####[address] CO2 [Moles/Vol] 28.1 mmol/L Normal 21.0-31.0 [facility] Comment on above: Performed By: #### B MP, DIFF CBC ####[address] Creatinine [Mass/Vol] 6.97 mg/dL High 0.70-1.30 [facility] Comment on above: Performed By: #### B MP, DIFF CBC ####[address] Creatinine Clr Calc Pharmacy 12.26 Normal [facility] Comment on above: Result Comment: PERF ORMED BY:[address] [place], [place] [phone] MEDICAL JAKE MCWILLIAMS M.D. Performed By: #### B MP, DIFF CBC ####[place] [id number] [facility] GFR/1.73 sq M.predicted MDRD (S/P/Bld) [Vol rate/Area] 8.027 mL/min/{1.73_m2} Normal [facility] Comment on above: Performed By: #### B MP, DIFF CBC ####[place] [id number] [facility] Glucose [Mass/Vol] 105 mg/dL Significant change up 70-100 [facility] Comment on above: Result Comment: [place] om Glucose Reference Range is dependent on time and content of last meal. Glucose of more than 200 mg/dL in a nonstressed, ambulatory subject supports the diagnosis of Diabetes Mellitus. ADA recommended reference range Performed By: #### B MP, DIFF CBC ####[address] Potassium [Moles/Vol] 4.5 mmol/L Normal 3.5-5.1 [facility] Comment on above: Performed By: #### B MP, DIFF CBC ####[address] Sodium [Moles/Vol] 134 mmol/L Low 136-145 [facility] Comment on above: Performed By: #### B MP, DIFF CBC ####[address] Urea nitrogen [Mass/Vol] 24 mg/dL Normal 7-25 [facility] Comment on above: Performed By: #### B MP, DIFF CBC ####[address] Basophils Auto (Bld) [#/Vol] Ordered By: Denice Dahl on 09-01-2023 Basophils (Bld) [#/Vol] N/A [facility] Basophils/100 WBC Auto (Bld) Ordered By: Denice Dahl on 09-01-2023 Basophils/100 WBC (Bld) N/A [facility] Basophils/100 leukocytes in Blood by Manual countOrdered By: Denice Dahl on 09-01-2023 Basophils/100 WBC (Bld) 1 % Normal 0-2 [facility] Comment on above: Performed By: #### B MP, DIFF CBC ####[address] Diff and CBCon 09-01-2023 Erythrocyte distribution width (RBC) [Ratio] 18.4 % High 12.0-14.8 [facility] Comment on above: Performed By: #### B MP, DIFF CBC ####[address] Hematocrit (Bld) [Volume fraction] 26.7 % Low 38.8-50.0 [facility] Comment on above: Performed By: #### B MP, DIFF CBC ####[address] Hemoglobin (Bld) [Mass/Vol] 8.9 g/dL Low 13.0-17.0 [facility] Comment on above: Performed By: #### B MP, DIFF CBC ####[place] [id number] [facility] MCH (RBC) [Entitic mass] 29.1 pg Normal 27.5-35.2 [facility] Comment on above: Performed By: #### B MP, DIFF CBC ####[place] [id number] [facility] MCV (RBC) [Entitic vol] 87.3 fL Normal 83.5-101 [facility] Comment on above: Performed By: #### B MP, DIFF CBC ####[address] Mean Corpuscular HGB Conc 33.4 g/dL Normal 32.5-35.6 [facility] Comment on above: Performed By: #### B MP, DIFF CBC ####[address] Metamyelocytes 1 % High 0-0 [facility] Comment on above: Performed By: #### B MP, DIFF CBC ####[place] [id number] [facility] Platelet Estimate Normal Normal Normal [facility] Comment on above: Performed By: #### B MP, DIFF CBC ####[place] [id number] [facility] Platelet mean volume (Bld) [Entitic vol] 7.8 fL Normal 6.6-10.1 [facility] Comment on above: Performed By: #### B MP, DIFF CBC ####[place] [id number] [facility] Platelet Morphology Normal Normal Normal [facility] Comment on above: Result Comment: PERF ORMED BY:[address] [place] [phone] MEDICAL DIRECTORDEAN MCWILLIAMS M.D. Performed By: #### B MP, DIFF CBC ####[place] [address] [place] [address] [facility] Platelets (Bld) [#/Vol] 337 10*3/uL Normal 150-450 [facility] Comment on above: Performed By: #### B MP, DIFF CBC ####[place] [address] [place] [address] [facility] Polychromasia Slight Normal [facility] Comment on above: Performed By: #### B MP, DIFF CBC ####[place] [address] [place] [address] [facility] RBC (Bld) [#/Vol] 3.06 10*6/uL Low 3.90-5.60 [facility] Comment on above: Performed By: #### B MP, DIFF CBC ####[address] [address] [facility] Eosinophils Auto (Bld) [#/Vo l]Ordered By: Denice Dahl on 09-01-2023 Eosinophils (Bld) [#/Vol] N/A [facility] Eosinophils/100 WBC Auto (Bl d)Ordered By: Denice Dahl on 09-01-2023 Eosinophils/100 WBC (Bld) N/A [facility] Eosinophils/100 leukocytes i n Blood by Manual countOrdered By: Denice Dahl on 09-01-2023 Eosinophils/100 WBC (Bld) 3 % Normal 1-3 [facility] Comment on above: Performed By: #### B MP, DIFF CBC ####[address] [address] [facility] Glucose Poct Glucometerson 0 09-01-2023 Glucose [Mass/Vol] 376 mg/dL Normal [facility] Comment on above: Result Comment: [place] Glucose Reference Range is dependent on time and content of last meal. Glucose of more than 200 mg/dL in a nonstressed, ambulatory subject supports the diagnosis of Diabetes Mellitus.PERFORMED BY:[address] [place], [place] [phone] MEDICAL JAKE MCWILLIAMS M.D. Performed By: #### G LULS ####Point of Care testing, Glucose [Mass/Vol] 262 mg/dL Normal [facility] Comment on above: Result Comment: [facility] Glucose Reference Range is dependent on time and content of last meal. Glucose of more than 200 mg/dL in a nonstressed, ambulatory subject supports the diagnosis of Diabetes Mellitus.PERFORMED BY:[address] [place], [place] [phone] MEDICAL DIRECTORDEAN MCWILLIAMS M.D. Performed By: #### G LULS ####Point of Care testing, Glucose [Mass/Vol] 255 mg/dL Normal [facility] Comment on above: Result Comment: [facility] Glucose Reference Range is dependent on time and content of last meal. Glucose of more than 200 mg/dL in a nonstressed, ambulatory subject supports the diagnosis of Diabetes Mellitus.PERFORMED BY:[address] [place], [place] [phone] MEDICAL JAKE MCWILLIAMS M.D. Performed By: #### G LULS ####Point of Care testing, Glucose [Mass/Vol] 88 mg/dL Normal [facility] Comment on above: Result Comment: [facility] Glucose Reference Range is dependent on time and content of last meal. Glucose of more than 200 mg/dL in a nonstressed, ambulatory subject supports the diagnosis of Diabetes Mellitus.PERFORMED BY:[address] [place], [place] [phone] MEDICAL DIRECTORDEAN MCWILLIAMS M.D. Performed By: #### G LULS ####Point of Care testing, Leukocytes [#/volume] in Blo od by Automated countOrdered By: Denice Dahl on 09-01-2023 WBC (Bld) [#/Vol] 8.9 10*3/uL Normal 4.1-10.5 [facility] Comment on above: Performed By: #### B MP, DIFF CBC ####[address] [address] [facility] Lymphocytes Auto (Bld) [#/Vo l]Ordered By: Denice Dahl on 09-01-2023 Lymphocytes (Bld) [#/Vol] N/A [facility] Lymphocytes/100 WBC Auto (Bl d)Ordered By: Denice Dahl on 09-01-2023 Lymphocytes/100 WBC (Bld) N/A [facility] Lymphocytes/100 leukocytes i n Blood by Manual countOrdered By: Denice Dahl on 09-01-2023 Lymphocytes/100 WBC (Bld) 16 % Low 18-42 [facility] Comment on above: Performed By: #### B MP, DIFF CBC ####[facility] [id number] Manual blood segmented neutr ophils/100 leukocytesOrdered By: Denice Dahl on 09-01-2023 Segmented neutrophils/100 WBC (Bld) 71 % High 50-70 [facility] Comment on above: Performed By: #### B MP, DIFF CBC ####[facility] [id number] [place] [address] [place] Metamyelocytes/100 WBC Manua l cnt (Bld)Ordered By: Denice Dahl on 09-01-2023 Metamyelocytes/100 WBC (Bld) 1 % High 0-0 [facility] Monocytes Auto (Bld) [#/Vol] Ordered By: Denice Dahl on 09-01-2023 Monocytes (Bld) [#/Vol] N/A [facility] Monocytes/100 WBC Auto (Bld) Ordered By: Denice Dahl on 09-01-2023 Monocytes/100 WBC (Bld) N/A [facility] Monocytes/100 leukocytes in Blood by Manual countOrdered By: Denice Mei on 09-01-2023 Monocytes/100 WBC (Bld) 6 % Normal 2-11 [facility] Comment on above: Performed By: #### B MP, DIFF CBC ####[facility] N[address] [place] [id number] [place] Neutrophils Auto (Bld) [#/Vo l]Ordered By: Denice Dahl on 09-01-2023 Neutrophils (Bld) [#/Vol] N/A [facility] Neutrophils/100 WBC Auto (Bl d)Ordered By: Denice Dahl on 09-01-2023 Neutrophils/100 WBC (Bld) N/A [facility] Nucleated erythrocytes [Pres ence] in Blood by Automated countOrdered By: Denice Dahl on 09-01-2023 Nucleated RBC Auto Ql (Bld) N/A [facility] Peripheral white blood cell differential % bands, microscopic examOrdered By: Denice Dahl on 09-01-2023 Band form neutrophils/100 WBC (Bld) 2 % Normal 0-5 [facility] Comment on above: Performed By: #### B MP, DIFF CBC ####[facility] [place] [address] [place] Platelet adequacy [Presence] in Blood by Light microscopyOrdered By: Denice Dahl on 09-01-2023 Platelets LM Ql (Bld) Normal Normal [facility] Platelet morphology finding [Identifier] in BloodOrdered By: Denice Dahl on 09-01-2023 Platelet morphology finding Nom (Bld) Normal Normal [facility] Polychromasia [Presence] in Blood by Light microscopyOrdered By: Denice Dahl on 09-01-2023 Polychromasia LM Ql (Bld) Slight [facility] RBC morphologyOrdered By: Ra chioma Dahl on 09-01-2023 RBC morphology finding Nom (Bld) N/A [facility] Glucose Poct Glucometerson 0 08-31-2023 Glucose [Mass/Vol] 400 mg/dL Off scale high [facility] Comment on above: Result Comment: [facility] Glucose Reference Range is dependent on time and content of last meal. Glucose of more than 200 mg/dL in a nonstressed, ambulatory subject supports the diagnosis of Diabetes Mellitus.PERFORMED BY:[facility] [place], [place] [phone] MEDICAL DIRECTORDEAN MCWILLIAMS M.D. Performed By: #### G LULS ####Point of Care testing, Glucose [Mass/Vol] 324 mg/dL Normal [facility] Comment on above: Result Comment: [facility] Glucose Reference Range is dependent on time and content of last meal. Glucose of more than 200 mg/dL in a nonstressed, ambulatory subject supports the diagnosis of Diabetes Mellitus.PERFORMED BY:[place] [address] [address] [place]odia[place], [place] [phone] MEDICAL JAKE MCWILLIAMS M.D. Performed By: #### G LULS ####Point of Care testing, Glucose [Mass/Vol] 305 mg/dL Normal [facility] Comment on above: Result Comment: [facility] Glucose Reference Range is dependent on time and content of last meal. Glucose of more than 200 mg/dL in a nonstressed, ambulatory subject supports the diagnosis of Diabetes Mellitus.PERFORMED BY:[address] [place], [place] [phone] MEDICAL JAKE MCWILLIAMS M.D. Performed By: #### G LULS ####Point of Care testing, Glucose [Mass/Vol] 190 mg/dL Normal [facility] Comment on above: Result Comment: [facility] Glucose Reference Range is dependent on time and content of last meal. Glucose of more than 200 mg/dL in a nonstressed, ambulatory subject supports the diagnosis of Diabetes Mellitus.PERFORMED BY:[place] [address] [address] [place], [place] [phone] MEDICAL JAKE MCWILLIAMS M.D. Performed By: #### G LULS ####Point of Care testing, Glucose [Mass/Vol] 310 mg/dL Normal [facility] Comment on above: Result Comment: [facility] Glucose Reference Range is dependent on time and content of last meal. Glucose of more than 200 mg/dL in a nonstressed, ambulatory subject supports the diagnosis of Diabetes Mellitus.PERFORMED BY:[address] ZAVALA[place]odiaADEMA[place], [place] [phone] MEDICAL JAKE MCWILLIAMS M.D. Performed By: #### G LULS ####Point of Care testing, Alanine aminotransferase [En zymatic activity/volume] in Serum or PlasmaOrdered By: Denice Dahl on 08-30-2023 ALT [Catalytic activity/Vol] 18 U/L Normal -52 [facility] Comment on above: Performed By: #### C BC, CMP ####[address] [address] [facility] Alkaline phosphatase [Enzyma tic activity/volume] in Serum or PlasmaOrdered By: Denice Fariabenson on 08-30-2023 ALP [Catalytic activity/Vol] 49 U/L Normal 34-104 [facility] Comment on above: Performed By: #### C BC, CMP ####[place] [id number] [facility] Aspartate aminotransferase [ Enzymatic activity/volume] in Serum or PlasmaOrdered By: Ljneli Bienvenidobenson on 08-30-2023 AST [Catalytic activity/Vol] 19 U/L Normal 13-39 [facility] Comment on above: Performed By: #### C OXANA, CMP ####[place] [id number] [facility] Bilirubin.total [Mass/volume ] in Serum or PlasmaOrdered By: Denice Bienvenidobenson on 08-30-2023 Bilirubin [Mass/Vol] 0.6 mg/dL Normal 0.3-1.0 [facility] Comment on above: Performed By: #### C OXANA, CMP ####[place] [id number] [facility] Complete Blood Count Auto Di ffon 08-30-2023 Basophils (Bld) [#/Vol] 0.1 10*3/uL Normal 0.0-0.2 [facility] Comment on above: Result Comment: PERF ORMED BY:[address] [place], [place] [phone] MEDICAL JAKE MCWILLIAMS M.D. Performed By: #### C OXANA, CMP ####[place] [id number] [facility] Basophils/100 WBC (Bld) 0.8 % Normal . [facility] Comment on above: Performed By: #### C BC, CMP ####[place] [id number] [facility] Eosinophils (Bld) [#/Vol] 0.3 10*3/uL Normal 0.0-0.45 [facility] Comment on above: Performed By: #### C BC, CMP ####[address] Eosinophils/100 WBC (Bld) 4.5 % Normal . [facility] Comment on above: Performed By: #### C BC, CMP ####[address] Erythrocyte distribution width (RBC) [Ratio] 18.1 % High 12.0-14.8 [facility] Comment on above: Performed By: #### C BC, CMP ####[address] Hematocrit (Bld) [Volume fraction] 28.0 % Low 38.8-50.0 [facility] Comment on above: Performed By: #### C BC, CMP ####[address] Hemoglobin (Bld) [Mass/Vol] 9.2 g/dL Low 13.0-17.0 [facility] Comment on above: Performed By: #### C OXANA, CMP ####[address] Lymphocytes (Bld) [#/Vol] 1.3 10*3/uL Normal 1.00-4.8 [facility] Comment on above: Performed By: #### C BC, CMP ####[address] Lymphocytes/100 WBC (Bld) 20.1 % Normal . [facility] Comment on above: Performed By: #### C BC, CMP ####[address] MCH (RBC) [Entitic mass] 28.5 pg Normal 27.5-35.2 [facility] Comment on above: Performed By: #### C BC, CMP ####[address] MCV (RBC) [Entitic vol] 86.6 fL Normal 83.5-101 [facility] Comment on above: Performed By: #### C BC, CMP ####[address] Mean Corpuscular HGB Conc 32.9 g/dL Normal 32.5-35.6 [facility] Comment on above: Performed By: #### C BC, CMP ####[address] Monocytes (Bld) [#/Vol] 1.0 10*3/uL High 0.0-0.8 [facility] Comment on above: Performed By: #### C OXANA, CMP ####[address] Monocytes/100 WBC (Bld) 16.3 % Normal . [facility] Comment on above: Performed By: #### C OXANA, CMP ####[address] Neutrophils (Bld) [#/Vol] 3.6 10*3/uL Normal 1.8-7.7 [facility] Comment on above: Performed By: #### C OXANA, CMP ####[address] Neutrophils/100 WBC (Bld) 58.3 % Normal . [facility] Comment on above: Performed By: #### C OXANA, CMP ####[address] NRBC% 0.3 /100{WBC} Normal 0-0.5 [facility] Comment on above: Performed By: #### C BC, CMP ####[address] Platelet mean volume (Bld) [Entitic vol] 8.1 fL Normal 6.6-10.1 [facility] Comment on above: Performed By: #### C BC, CMP ####[address] Platelets (Bld) [#/Vol] 216 10*3/uL Normal 150-450 [facility] Comment on above: Performed By: #### C BC, CMP ####[address] RBC (Bld) [#/Vol] 3.23 10*6/uL Low 3.90-5.60 [facility] Comment on above: Performed By: #### C BC, CMP ####[address] WBC (Bld) [#/Vol] 6.3 10*3/uL Normal 4.1-10.5 [facility] Comment on above: Performed By: #### C BC, CMP ####[address] Comprehensive Metabolic Pane raghu 08-30-2023 Albumin [Mass/Vol] 2.6 g/dL Low 3.5-5.7 [facility] Comment on above: Performed By: #### C BC, CMP ####[address] Anion gap [Moles/Vol] 14.1 mmol/L Normal 6.0-15.0 [facility] Comment on above: Performed By: #### C BC, CMP ####[address] Calcium [Mass/Vol] 9.3 mg/dL Normal 8.6-10.3 [facility] Comment on above: Performed By: #### C BC, CMP ####[address] Chloride [Moles/Vol] 96 mmol/L Low 98-107 [facility] Comment on above: Performed By: #### C BC, CMP ####[address] CO2 [Moles/Vol] 25.2 mmol/L Normal 21.0-31.0 [facility] Comment on above: Performed By: #### C BC, CMP ####[address] [place] [address] [facility] Creatinine [Mass/Vol] 6.91 mg/dL Significan t change up 0.70-1.30 [facility] Comment on above: Performed By: #### C BC, CMP ####[place] [id number] [facility] Creatinine Clr Calc Pharmacy 12.36 Normal [facility] Comment on above: Result Comment: PERF ORMED BY:[address] [place], [place] [phone] MEDICAL DIRECTORDEAN MCWILLIAMS M.D. Performed By: #### C BC, CMP ####[place] [id number] [facility] GFR/1.73 sq M.predicted MDRD (S/P/Bld) [Vol rate/Area] 8.110 mL/min/{1.73_m2} Normal [facility] Comment on above: Performed By: #### C BC, CMP ####[place] [id number] [facility] Glucose [Mass/Vol] 246 mg/dL Significant change up 70-100 [facility] Comment on above: Result Comment: [place] Glucose Reference Range is dependent on time and content of last meal. Glucose of more than 200 mg/dL in a nonstressed, ambulatory subject supports the diagnosis of Diabetes Mellitus. ADA recommended reference range Performed By: #### C BC, CMP ####[place] [phone] [facility] Potassium [Moles/Vol] 4.3 mmol/L Normal 3.5-5.1 [facility] Comment on above: Performed By: #### C BC, CMP ####[place] [id number] [facility] Sodium [Moles/Vol] 131 mmol/L Low 136-145 [facility] Comment on above: Performed By: #### C BC, CMP ####[place] [id number] [facility] Urea nitrogen [Mass/Vol] 22 mg/dL Normal 7-25 [facility] Comment on above: Performed By: #### C BC, CMP ####[address] [address] [facility] Glucose Poct Glucometerson 0 08-30-2023 Commemt1 Normal [facility] Comment on above: Result Comment: Glu2 : WILL NOTIFY DR/RNPERFORMED BY:[address] [place], [place] [phone] MEDICAL DIRECTORDEAN MCWILLIAMS M.D. Performed By: #### G LULS ####Point of Care testing, Glucose [Mass/Vol] 484 mg/dL Off scale high [facility] Comment on above: Result Comment: [place] om Glucose Reference Range is dependent on time and content of last meal. Glucose of more than 200 mg/dL in a nonstressed, ambulatory subject supports the diagnosis of Diabetes Mellitus. Performed By: #### G LULS ####Point of Care testing, Commemt1 Normal [facility] Comment on above: Result Comment: Glu2 : Will Repeat Test Performed By: #### G LULS ####Point of Care testing, Commemt2 WILL NOTIFY DR/LORE Alatorre [facility] Comment on above: Result Comment: PERF ORMED BY:[address] [place], [place] [phone] MEDICAL DIRECTORDEAN MCWILLIAMS M.D. Performed By: #### G LULS ####Point of Care testing, Glucose [Mass/Vol] 466 mg/dL Off scale high [facility] Comment on above: Result Comment: [place] om Glucose Reference Range is dependent on time and content of last meal. Glucose of more than 200 mg/dL in a nonstressed, ambulatory subject supports the diagnosis of Diabetes Mellitus. Performed By: #### G LULS ####Point of Care testing, Commemt1 Normal [facility] Comment on above: Result Comment: Glu2 : Will Repeat Test Performed By: #### G LULS ####Point of Care testing, Commemt2 WILL NOTIFY DR/LORE Alatorre [facility] Comment on above: Result Comment: PERF ORMED BY:[place] [address] [address] [place], [place] [phone] MEDICAL DIRECTORDEAN MCWILLIAMS M.D. Performed By: #### G LULS ####Point of Care testing, Glucose [Mass/Vol] 475 mg/dL Off scale high [facility] Comment on above: Result Comment: [place] om Glucose Reference Range is dependent on time and content of last meal. Glucose of more than 200 mg/dL in a nonstressed, ambulatory subject supports the diagnosis of Diabetes Mellitus. Performed By: #### G LULS ####Point of Care testing, Glucose [Mass/Vol] 529 mg/dL Off scale high [facility] Comment on above: Result Comment: [place] om Glucose Reference Range is dependent on time and content of last meal. Glucose of more than 200 mg/dL in a nonstressed, ambulatory subject supports the diagnosis of Diabetes Mellitus. Performed By: #### G LULS ####Point of Care testing, Glucose [Mass/Vol] 188 mg/dL Normal [facility] Comment on above: Result Comment: [place] om Glucose Reference Range is dependent on time and content of last meal. Glucose of more than 200 mg/dL in a nonstressed, ambulatory subject supports the diagnosis of Diabetes Mellitus.PERFORMED BY:[place] [address] [place], [place] [phone] MEDICAL JAKE MCWILLIAMS M.D. Performed By: #### G LULS ####Point of Care testing, Glucose [Mass/Vol] 221 mg/dL Normal [facility] Comment on above: Result Comment: [place] om Glucose Reference Range is dependent on time and content of last meal. Glucose of more than 200 mg/dL in a nonstressed, ambulatory subject supports the diagnosis of Diabetes Mellitus.PERFORMED BY:[place] [address] [place], [place] [phone] MEDICAL JAKE MCWILLIAMS M.D. Performed By: #### G LULS ####Point of Care testing, No Panel InformationOrdered By: Denice Dahl on 08-30-2023 Bedside Glucose #[address]/lore [facility] Protein [Mass/volume] in Ser um or PlasmaOrdered By: Denice Fariabenson on 08-30-2023 Protein [Mass/Vol] 6.3 g/dL Low 6.4-8.9 [facility] Comment on above: Performed By: #### C BC, CMP ####[place] [id number] [place] [id number] [facility] Serum globulin measurement b y calculation (mass/volume)Ordered By: Ljneli Bienvenidobenson on 08-30-2023 Globulin (S) [Mass/Vol] 3.7 g/dL [facility] Comment on above: Performed By: #### C BC, CMP ####[place] [id number] [place] [phone] [facility] Serum or plasma albumin/glob ulin mass ratioOrdered By: Denice Mei on 08-30-2023 Albumin/Globulin [Mass ratio] 0.7 {ratio} [facility] Comment on above: Performed By: #### C BC, CMP ####[place] [phone] [facility] Vancomycin [Mass/volume] in Serum or PlasmaOrdered By: Alon Santiago on 08-30-2023 Vancomycin [Mass/Vol] 18.2 ug/mL 5.0-20.0 [facility] Comment on above: Last dose: - Vancomycin,Randomon 08-30-19 24 Vancomycin,Random 18.2 ug/mL Normal 5.0-20.0 [facility] Comment on above: Order Comment: Date of last dose?: [id number] Time of last dose?: 1829 Result Comment: Last dose: -PERFORMED BY:[place] [address] [place] [phone] MEDICAL DIRECTORDEAN MCWILLIAMS M.D. Performed By: #### V ANCR ####[place] [address] [place] [address] [facility] C reactive protein [Mass/vol ume] in Serum or PlasmaOrdered By: Alfredo Acosta on 08-29-2023 CRP [Mass/Vol] 10.2 mg/dL High 0.0-0.5 [facility] C-Reactive Proteinon 024 C-Reactive Protein 10.2 mg/dL High 0.0-0.5 [facility] Comment on above: Result Comment: PERF ORMED BY:[place] [address] [place], [place] [phone] MEDICAL DIRECTORDEAN MCWILLIAMS M.D. Performed By: #### C RP ####[address] [address] [facility] Comprehensive Metabolic Pane raghu 08-29-2023 Albumin [Mass/Vol] 2.6 g/dL Low 3.5-5.7 [facility] Comment on above: Performed By: #### S CAN CBC, CMP ####[place] [id number] [facility] Albumin/Globulin [Mass ratio] 0.8 {ratio} Normal [facility] Comment on above: Performed By: #### S CAN CBC, CMP ####[place] [id number] [facility] ALP [Catalytic activity/Vol] 55 U/L Normal 34-104 [facility] Comment on above: Performed By: #### S CAN CBC, CMP ####[place] [phone] [facility] ALT [Catalytic activity/Vol] 21 U/L Normal 7-52 [facility] Comment on above: Performed By: #### S CAN CBC, CMP ####[place] [id number] [facility] Anion gap [Moles/Vol] 10.9 mmol/L Normal 6.0-15.0 [facility] Comment on above: Performed By: #### S CAN CBC, CMP ####[place] [id number] [facility] AST [Catalytic activity/Vol] 23 U/L Normal 13-39 [facility] Comment on above: Performed By: #### S CAN CBC, CMP ####[place] [id number] [facility] Bilirubin [Mass/Vol] 0.6 mg/dL Normal 0.3-1.0 [facility] Comment on above: Performed By: #### S CAN CBC, CMP ####[address] Calcium [Mass/Vol] 8.7 mg/dL Normal 8.6-10.3 [facility] Comment on above: Performed By: #### S CAN CBC, CMP ####[address] Chloride [Moles/Vol] 95 mmol/L Low 98-107 [facility] Comment on above: Performed By: #### S CAN CBC, CMP ####[address] CO2 [Moles/Vol] 28.8 mmol/L Normal 21.0-31.0 [facility] Comment on above: Performed By: #### S CAN CBC, CMP ####[address] Creatinine [Mass/Vol] 4.98 mg/dL Significan t change up 0.70-1.30 [facility] Comment on above: Performed By: #### S CAN CBC, CMP ####[address] Creatinine Clr Calc Pharmacy 17.24 Normal [facility] Comment on above: Result Comment: PERF ORMED BY:[address] [place], [place] [phone] MEDICAL DIRECTORDEAN MCWILLIAMS M.D. Performed By: #### S CAN CBC, CMP ####[address] GFR/1.73 sq M.predicted MDRD (S/P/Bld) [Vol rate/Area] 12.016 mL/min/{1.73_m2} Normal [facility] Comment on above: Performed By: #### S CAN CBC, CMP ####[address] Globulin (S) [Mass/Vol] 3.2 g/dL Normal [facility] Comment on above: Performed By: #### S CAN CBC, CMP ####[place] [address] [place] [phone] [facility] Glucose [Mass/Vol] 391 mg/dL Significant change up 70-100 [facility] Comment on above: Result Comment: [place] om Glucose Reference Range is dependent on time and content of last meal. Glucose of more than 200 mg/dL in a nonstressed, ambulatory subject supports the diagnosis of Diabetes Mellitus. ADA recommended reference range Performed By: #### S CAN CBC, CMP ####[address] [address] [facility] Potassium [Moles/Vol] 4.7 mmol/L Normal 3.5-5.1 [facility] Comment on above: Performed By: #### S CAN CBC, CMP ####[place] [id number] [facility] Protein [Mass/Vol] 5.8 g/dL Low 6.4-8.9 [facility] Comment on above: Performed By: #### S CAN CBC, CMP ####[place] [id number] [facility] Sodium [Moles/Vol] 130 mmol/L Low 136-145 [facility] Comment on above: Performed By: #### S CAN CBC, CMP ####[place] [id number] [facility] Urea nitrogen [Mass/Vol] 16 mg/dL Normal 7-25 [facility] Comment on above: Performed By: #### S CAN CBC, CMP ####[address] [address] [facility] Glucose Poct Glucometerson 0 08-29-2023 Glucose [Mass/Vol] 249 mg/dL Normal [facility] Comment on above: Result Comment: [place] om Glucose Reference Range is dependent on time and content of last meal. Glucose of more than 200 mg/dL in a nonstressed, ambulatory subject supports the diagnosis of Diabetes Mellitus.PERFORMED BY:[address] [place], [place] [phone] MEDICAL JAKE MCWILLIAMS M.D. Performed By: #### G LULS ####Point of Care testing, Glucose [Mass/Vol] 300 mg/dL Normal [facility] Comment on above: Result Comment: [place] om Glucose Reference Range is dependent on time and content of last meal. Glucose of more than 200 mg/dL in a nonstressed, ambulatory subject supports the diagnosis of Diabetes Mellitus.PERFORMED BY:[place] [address] [address] [place], [place] [phone] MEDICAL JAKE MCWILLIAMS M.D. Performed By: #### G LULS ####Point of Care testing, Commemt1 Normal [facility] Comment on above: Result Comment: Glu2 : WILL NOTIFY DR/FRANCIERFORMED BY:[place] [address] [address] [place], [place] [phone] MEDICAL JAKE MCWILLIAMS M.D. Performed By: #### G LULS ####Point of Care testing, Glucose [Mass/Vol] 421 mg/dL Off scale high Th [facility] Comment on above: Result Comment: [place] om Glucose Reference Range is dependent on time and content of last meal. Glucose of more than 200 mg/dL in a nonstressed, ambulatory subject supports the diagnosis of Diabetes Mellitus. Performed By: #### G LULS ####Point of Care testing, Glucose [Mass/Vol] 312 mg/dL Normal [facility] Comment on above: Result Comment: [place] om Glucose Reference Range is dependent on time and content of last meal. Glucose of more than 200 mg/dL in a nonstressed, ambulatory subject supports the diagnosis of Diabetes Mellitus.PERFORMED BY:[place] [address] [address] [place], [place] [phone] PAIGE MCWILLIAMS M.D. Performed By: #### G LULS ####Point of Care testing, Glucose [Mass/Vol] 323 mg/dL Normal [facility] Comment on above: Result Comment: [place] om Glucose Reference Range is dependent on time and content of last meal. Glucose of more than 200 mg/dL in a nonstressed, ambulatory subject supports the diagnosis of Diabetes Mellitus.PERFORMED BY:[address] [place], [place] [phone] MEDICAL DIRECTORDEAN MCWILLIAMS M.D. Performed By: #### G LULS ####Point of Care testing, Glucose [Mass/Vol] 324 mg/dL Normal [facility] Comment on above: Result Comment: [facility] Glucose Reference Range is dependent on time and content of last meal. Glucose of more than 200 mg/dL in a nonstressed, ambulatory subject supports the diagnosis of Diabetes Mellitus.PERFORMED BY:[address] [place], [place] [phone] MEDICAL DIRECTORDEAN MCWILLIAMS M.D. Performed By: #### G LULS ####Point of Care testing, Microcytes LM Ql (Bld)Ordere d By: Denice Dahl on 08-29-2023 Microcytes Ql (Bld) Slight [facility] Poikilocytosis [Presence] in Blood by Light microscopyOrdered By: Denice Dahl on 08-29-2023 Poikilocytosis LM Ql (Bld) Slight [facility] Scan and CBCon 08-29-2023 Anisocytosis Ql (Bld) Slight Normal [facility] Comment on above: Performed By: #### S CAN CBC, CMP ####[place] [id number] [facility] Basophils (Bld) [#/Vol] 0.0 10*3/uL Normal 0.0-0.2 [facility] Comment on above: Performed By: #### S CAN CBC, CMP ####[place] [id number] [place] Basophils/100 WBC (Bld) 0.8 % Normal . [facility] Comment on above: Performed By: #### S CAN CBC, CMP ####[place] [id number] [facility] Eosinophils (Bld) [#/Vol] 0.1 10*3/uL Normal 0.0-0.45 [facility] Comment on above: Performed By: #### S CAN CBC, CMP ####[address] Eosinophils/100 WBC (Bld) 3.1 % Normal . [facility] Comment on above: Performed By: #### S CAN CBC, CMP ####[address] Erythrocyte distribution width (RBC) [Ratio] 18.2 % High 12.0-14.8 [facility] Comment on above: Performed By: #### S CAN CBC, CMP ####[address] Hematocrit (Bld) [Volume fraction] 27.3 % Low 38.8-50.0 [facility] Comment on above: Performed By: #### S CAN CBC, CMP ####[address] Hemoglobin (Bld) [Mass/Vol] 8.8 g/dL Low 13.0-17.0 [facility] Comment on above: Performed By: #### S CAN CBC, CMP ####[address] Lymphocytes (Bld) [#/Vol] 0.8 10*3/uL Low 1.00-4.8 [facility] Comment on above: Performed By: #### S CAN CBC, CMP ####[address] Lymphocytes/100 WBC (Bld) 15.7 % Normal . [facility] Comment on above: Performed By: #### S CAN CBC, CMP ####[address] MCH (RBC) [Entitic mass] 28.2 pg Normal 27.5-35.2 [facility] Comment on above: Performed By: #### S CAN CBC, CMP ####[address] MCV (RBC) [Entitic vol] 87.2 fL Normal 83.5-101 [facility] Comment on above: Performed By: #### S CAN CBC, CMP ####[address] Mean Corpuscular HGB Conc 32.3 g/dL Low 32.5-35.6 [facility] Comment on above: Performed By: #### S CAN CBC, CMP ####[address] Microcytosis Slight Normal [facility] Comment on above: Performed By: #### S CAN CBC, CMP ####[address] Monocytes (Bld) [#/Vol] 1.2 10*3/uL High 0.0-0.8 [facility] Comment on above: Performed By: #### S CAN CBC, CMP ####[address] Monocytes/100 WBC (Bld) 23.7 % Normal . [facility] Comment on above: Performed By: #### S CAN CBC, CMP ####[address] Neutrophils (Bld) [#/Vol] 2.8 10*3/uL Normal 1.8-7.7 [facility] Comment on above: Performed By: #### S CAN CBC, CMP ####[address] Neutrophils/100 WBC (Bld) 56.7 % Normal . [facility] Comment on above: Performed By: #### S CAN CBC, CMP ####[address] NRBC% 0.1 /100{WBC} Normal 0-0.5 [facility] Comment on above: Performed By: #### S CAN CBC, CMP ####[address] Platelet Estimate Normal Normal Normal [facility] Comment on above: Performed By: #### S CAN CBC, CMP ####[address] Platelet mean volume (Bld) [Entitic vol] 7.9 fL Normal 6.6-10.1 [facility] Comment on above: Performed By: #### S CAN CBC, CMP ####[address] Platelet Morphology Normal Normal Normal [facility] Comment on above: Result Comment: PERF ORMED BY:[address] [place], [place] [phone] MEDICAL JAKE MCWILLIAMS M.D. Performed By: #### S CAN CBC, CMP ####[address] Platelets (Bld) [#/Vol] 234 10*3/uL Normal 150-450 [facility] Comment on above: Performed By: #### S CAN CBC, CMP ####[address] Poikilocytosis Slight Normal [facility] Comment on above: Performed By: #### S CAN CBC, CMP ####[address] RBC (Bld) [#/Vol] 3.13 10*6/uL Low 3.90-5.60 [facility] Comment on above: Performed By: #### S CAN CBC, CMP ####[address] WBC (Bld) [#/Vol] 4.9 10*3/uL Normal 4.1-10.5 [facility] Comment on above: Performed By: #### S CAN CBC, CMP ####[address] XR foot LT 2Von 08-29-2023 XR foot LT 2V Normal [facility] Aerobic Cultureon 08-28-2023 Aerobic Culture Normal [facility] Comment on above: Performed By: #### A ERC ####[address] Aerobic Culture Normal [facility] Comment on above: Performed By: #### A ERC ####[place] [id number] [facility] [place] cells [Presence] in Blo od by Light microscopyOrdered By: Denice Dahl on 08-28-2023 [place] cells LM Ql (Bld) Moderate [facility] Comprehensive Metabolic Pane raghu 08-28-2023 Albumin [Mass/Vol] 3.0 g/dL Low 3.5-5.7 [facility] Comment on above: Performed By: #### D IFF CBC, CMP ####[place] [id number] [facility] Albumin/Globulin [Mass ratio] 0.8 {ratio} Normal [facility] Comment on above: Performed By: #### D IFF CBC, CMP ####[place] [id number] [facility] ALP [Catalytic activity/Vol] 53 U/L Normal 34-104 [facility] Comment on above: Performed By: #### D IFF CBC, CMP ####[place] [id number] [facility] ALT [Catalytic activity/Vol] 25 U/L Normal 7-52 [facility] Comment on above: Performed By: #### D IFF CBC, CMP ####[place] [id number] [facility] Anion gap [Moles/Vol] 14.5 mmol/L Normal 6.0-15.0 [facility] Comment on above: Performed By: #### D IFF CBC, CMP ####[place] [id number] [facility] AST [Catalytic activity/Vol] 42 U/L High 13-39 [facility] Comment on above: Performed By: #### D IFF CBC, CMP ####[place] [id number] [facility] Bilirubin [Mass/Vol] 0.6 mg/dL Normal 0.3-1.0 [facility] Comment on above: Performed By: #### D IFF CBC, CMP ####[address] [address] [facility] Calcium [Mass/Vol] 9.7 mg/dL Normal 8.6-10.3 [facility] Comment on above: Performed By: #### D IFF CBC, CMP ####[place] [id number] [facility] Chloride [Moles/Vol] 97 mmol/L Low 98-107 [facility] Comment on above: Performed By: #### D IFF CBC, CMP ####[place] [id number] [facility] CO2 [Moles/Vol] 27.1 mmol/L Normal 21.0-31.0 [facility] Comment on above: Performed By: #### D IFF CBC, CMP ####[place] [id number] [facility] Creatinine [Mass/Vol] 7.97 mg/dL Significan t change up 0.70-1.30 [facility] Comment on above: Performed By: #### D IFF CBC, CMP ####[place] [id number] [facility] Creatinine Clr Calc Pharmacy 10.40 Normal [facility] Comment on above: Result Comment: PERF ORMED BY:[address] [place], [place] [phone] MEDICAL JAKE MCWILLIAMS M.D. Performed By: #### D IFF CBC, CMP ####[address] [address] [facility] GFR/1.73 sq M.predicted MDRD (S/P/Bld) [Vol rate/Area] 6.833 mL/min/{1.73_m2} Normal [facility] Comment on above: Performed By: #### D IFF CBC, CMP ####[place] [id number] [facility] Globulin (S) [Mass/Vol] 3.8 g/dL Normal [facility] Comment on above: Performed By: #### D IFF CBC, CMP ####[address] Glucose [Mass/Vol] 61 mg/dL Low 70-100 [facility] Comment on above: Result Comment: [place] Glucose Reference Range is dependent on time and content of last meal. Glucose of more than 200 mg/dL in a nonstressed, ambulatory subject supports the diagnosis of Diabetes Mellitus. ADA recommended reference range Performed By: #### D IFF CBC, CMP ####[address] Potassium [Moles/Vol] 3.6 mmol/L Normal 3.5-5.1 [facility] Comment on above: Performed By: #### D IFF CBC, CMP ####[address] Protein [Mass/Vol] 6.8 g/dL Normal 6.4-8.9 [facility] Comment on above: Performed By: #### D IFF CBC, CMP ####[address] Sodium [Moles/Vol] 135 mmol/L Low 136-145 [facility] Comment on above: Performed By: #### D IFF CBC, CMP ####[place] [id number] [facility] Urea nitrogen [Mass/Vol] 29 mg/dL High 7-25 [facility] Comment on above: Performed By: #### D IFF CBC, CMP ####[address] [address] [facility] Diff and CBCon 08-28-2023 Anisocytosis Ql (Bld) Slight Normal [facility] Comment on above: Performed By: #### D IFF CBC, CMP ####[place] [id number] [facility] Crenated RBC Moderate Normal [facility] Comment on above: Performed By: #### D IFF CBC, CMP ####[place] [id number] [facility] Eosinophils/100 WBC (Bld) 6 % High 1-3 [facility] Comment on above: Performed By: #### D IFF CBC, CMP ####[address] Erythrocyte distribution width (RBC) [Ratio] 18.0 % High 12.0-14.8 [facility] Comment on above: Performed By: #### D IFF CBC, CMP ####[address] Hematocrit (Bld) [Volume fraction] 28.2 % Low 38.8-50.0 [facility] Comment on above: Performed By: #### D IFF CBC, CMP ####[address] Hemoglobin (Bld) [Mass/Vol] 9.4 g/dL Low 13.0-17.0 [facility] Comment on above: Performed By: #### D IFF CBC, CMP ####[address] Lymphocytes/100 WBC (Bld) 13 % Low 18-42 [facility] Comment on above: Performed By: #### D IFF CBC, CMP ####[address] MCH (RBC) [Entitic mass] 28.7 pg Normal 27.5-35.2 [facility] Comment on above: Performed By: #### D IFF CBC, CMP ####[address] MCV (RBC) [Entitic vol] 85.8 fL Normal 83.5-101 [facility] Comment on above: Performed By: #### D IFF CBC, CMP ####[address] Mean Corpuscular HGB Conc 33.4 g/dL Normal 32.5-35.6 [facility] Comment on above: Performed By: #### D IFF CBC, CMP ####[address] Monocytes/100 WBC (Bld) 16 % High 2-11 [facility] Comment on above: Performed By: #### D IFF CBC, CMP ####[place] [id number] [facility] Myelocytes 1 % High 0-0 [facility] Comment on above: Performed By: #### D IFF CBC, CMP ####[place] [id number] [facility] Ovalocytes Slight Normal [facility] Comment on above: Performed By: #### D IFF CBC, CMP ####[place] [id number] [facility] Platelet Estimate Normal Normal Normal [facility] Comment on above: Result Comment: PERF ORMED BY:[address] [place], [place] [phone] MEDICAL DIRECTORDEAN MCWILLIAMS M.D. Performed By: #### D IFF CBC, CMP ####[address] Platelet mean volume (Bld) [Entitic vol] 7.8 fL Normal 6.6-10.1 [facility] Comment on above: Performed By: #### D IFF CBC, CMP ####[place] [id number] [facility] Platelet Morphology Normal Normal Normal [facility] Comment on above: Result Comment: PERF ORMED BY:[address] [place], [place] [phone] MEDICAL DIRECTORDEAN MCWILLIAMS M.D. Performed By: #### D IFF CBC, CMP ####[place] [id number] [facility] Platelets (Bld) [#/Vol] 246 10*3/uL Normal 150-450 [facility] Comment on above: Performed By: #### D IFF CBC, CMP ####[place] [id number] [facility] Poikilocytosis Moderate Normal [facility] Comment on above: Performed By: #### D IFF CBC, CMP ####[address] [address] [facility] Polychromasia Slight Normal [facility] Comment on above: Performed By: #### D IFF CBC, CMP ####[address] [address] [facility] RBC (Bld) [#/Vol] 3.28 10*6/uL Low 3.90-5.60 [facility] Comment on above: Performed By: #### D IFF CBC, CMP ####[address] [address] [facility] Reactive Lymphocytes 3 % Normal 0-12 [facility] Comment on above: Performed By: #### D IFF CBC, CMP ####[address] [address] [facility] Segmented neutrophils/100 WBC (Bld) 62 % Normal 50-70 [facility] Comment on above: Performed By: #### D IFF CBC, CMP ####[address] [address] [facility] WBC (Bld) [#/Vol] 6.1 10*3/uL Normal 4.1-10.5 [facility] Comment on above: Performed By: #### D IFF CBC, CMP ####[address] [address] [facility] Glucose Poct Glucometerson 0 - Commemt1 Normal [facility] Comment on above: Result Comment: Glu2 : WILL NOTIFY DR/RNPERFORMED BY:[address] [place], [place] [phone] MEDICAL DIRECTORDEAN MCWILLIAMS M.D. Performed By: #### G DARLENE ####Point of Care testing, Glucose [Mass/Vol] 419 mg/dL Off scale high [facility] Comment on above: Result Comment: [place] Glucose Reference Range is dependent on time and content of last meal. Glucose of more than 200 mg/dL in a nonstressed, ambulatory subject supports the diagnosis of Diabetes Mellitus. Performed By: #### G LULS ####Point of Care testing, Commemt1 Normal [facility] Comment on above: Result Comment: Glu2 : Will Repeat TestPERFORMED BY:[place] [address] [address] [place], [place] [phone] MEDICAL DIRECTORDEAN MCWILLIAMS M.D. Performed By: #### G LULS ####Point of Care testing, Glucose [Mass/Vol] 435 mg/dL Off scale high [facility] Comment on above: Result Comment: [place] om Glucose Reference Range is dependent on time and content of last meal. Glucose of more than 200 mg/dL in a nonstressed, ambulatory subject supports the diagnosis of Diabetes Mellitus. Performed By: #### G LULS ####Point of Care testing, Glucose [Mass/Vol] 297 mg/dL Normal [facility] Comment on above: Result Comment: [place] om Glucose Reference Range is dependent on time and content of last meal. Glucose of more than 200 mg/dL in a nonstressed, ambulatory subject supports the diagnosis of Diabetes Mellitus.PERFORMED BY:[place] [address] [address] [place], [place] [phone] MEDICAL DIRECTORDEAN MCWILLIAMS M.D. Performed By: #### G LULS ####Point of Care testing, Commemt1 Glu2: Cleaned Meter Normal [facility] Comment on above: Result Comment: PERF ORMED BY:[place] [address] [place], [place] [phone] MEDICAL DIRECTORDEAN MCWILLIAMS M.D. Performed By: #### G LULS ####Point of Care testing, Glucose [Mass/Vol] 79 mg/dL Normal [facility] Comment on above: Result Comment: [place] om Glucose Reference Range is dependent on time and content of last meal. Glucose of more than 200 mg/dL in a nonstressed, ambulatory subject supports the diagnosis of Diabetes Mellitus. Performed By: #### G LULS ####Point of Care testing, Commemt1 Glu2: Cleaned Meter Normal [facility] Comment on above: Result Comment: PERF ORMED BY:[facility] [place], [place] [phone] MEDICAL DIRECTORDEAN MCWILLIAMS M.D. Performed By: #### G LULS ####Point of Care testing, Glucose [Mass/Vol] 66 mg/dL Normal [facility] Comment on above: Result Comment: [facility] Glucose Reference Range is dependent on time and content of last meal. Glucose of more than 200 mg/dL in a nonstressed, ambulatory subject supports the diagnosis of Diabetes Mellitus. Performed By: #### G LULS ####Point of Care testing, Gram stain for investigation of transfusion reactionOrdered By: DAVID Pop on 08-28-2023 Microscopic observation Gram stain Nom (Unsp spec) Pseudomonas aeruginosa Abnormal [facility] Microscopic observation Gram stain Nom (Unsp spec) Methicillin Resis Staph Aureus Abnormal [facility] Myelocytes/100 WBC Manual cn t (Bld)Ordered By: Denice Dahl on 08-28-2023 Myelocytes/100 WBC (Bld) 1 % High 0-0 [facility] Ovalocyte detectionOrdered B y: Denice Dahl on 08-28-2023 Ovalocytes LM Ql (Bld) [facility]light [facility] lymphocytes/100 WBC Manual cnt (Bld)Ordered By: Denice Dahl on 08-28-2023 Variant lymphocytes/100 WBC (Bld) 3 % 0-12 [facility] Comprehensive Metabolic Pane raghu 08-27-2023 Albumin [Mass/Vol] 2.7 g/dL Low 3.5-5.7 [facility] Comment on above: Performed By: #### C MP ####[facility] [place] [address] [facility] Albumin/Globulin [Mass ratio] 0.7 {ratio} Normal [facility] Comment on above: Performed By: #### C MP ####[facility] [place] [address] [facility] ALP [Catalytic activity/Vol] 50 U/L Normal 34-104 [facility] Comment on above: Performed By: #### C MP ####[place] [id number] [facility] ALT [Catalytic activity/Vol] 22 U/L Normal 7-52 [facility] Comment on above: Performed By: #### C MP ####[address] Anion gap [Moles/Vol] 11.1 mmol/L Normal 6.0-15.0 [facility] Comment on above: Performed By: #### C MP ####[address] AST [Catalytic activity/Vol] 44 U/L High 13-39 [facility] Comment on above: Performed By: #### C MP ####[address] Bilirubin [Mass/Vol] 0.6 mg/dL Normal 0.3-1.0 [facility] Comment on above: Performed By: #### C MP ####[address] Calcium [Mass/Vol] 8.9 mg/dL Normal 8.6-10.3 [facility] Comment on above: Performed By: #### C MP ####[address] Chloride [Moles/Vol] 96 mmol/L Low 98-107 [facility] Comment on above: Performed By: #### C MP ####[address] CO2 [Moles/Vol] 29.7 mmol/L Normal 21.0-31.0 [facility] Comment on above: Performed By: #### C MP ####[address] Creatinine [Mass/Vol] 6.05 mg/dL Significan t change up 0.70-1.30 [facility] Comment on above: Performed By: #### C MP ####[address] Creatinine Clr Calc Pharmacy 13.71 Normal [facility] Comment on above: Result Comment: PERF ORMED BY:[address] [place], [place] [phone] MEDICAL DIRECTORDEAN MCWILLIAMS M.D. Performed By: #### C MP ####[place] [id number] [facility] GFR/1.73 sq M.predicted MDRD (S/P/Bld) [Vol rate/Area] 9.513 mL/min/{1.73_m2} Normal [facility] Comment on above: Performed By: #### C MP ####[place] [id number] [facility] Globulin (S) [Mass/Vol] 3.7 g/dL Normal [facility] Comment on above: Performed By: #### C MP ####[address] Glucose [Mass/Vol] 124 mg/dL High 70-100 [facility] Comment on above: Result Comment: [facility] Glucose Reference Range is dependent on time and content of last meal. Glucose of more than 200 mg/dL in a nonstressed, ambulatory subject supports the diagnosis of Diabetes Mellitus. ADA recommended reference range Performed By: #### C MP ####[address] Potassium [Moles/Vol] 3.8 mmol/L Normal 3.5-5.1 [facility] Comment on above: Performed By: #### C MP ####[place] [id number] [facility] Protein [Mass/Vol] 6.4 g/dL Normal 6.4-8.9 [facility] Comment on above: Performed By: #### C MP ####[place] [id number] [facility] Sodium [Moles/Vol] 133 mmol/L Low 136-145 [facility] Comment on above: Performed By: #### C MP ####[place] [id number] [facility] Urea nitrogen [Mass/Vol] 23 mg/dL Normal 7-25 [facility] Comment on above: Performed By: #### C MP ####[address] Diff and CBCon 08-27-2023 Anisocytosis Ql (Bld) Slight Normal [facility] Comment on above: Performed By: #### D IFF CBC, ESR ####[address] Band form neutrophils/100 WBC (Bld) 9 % High 0-5 [facility] Comment on above: Performed By: #### D IFF CBC, ESR ####[address] Basophils/100 WBC (Bld) 1 % Normal 0-2 [facility] Comment on above: Performed By: #### D IFF CBC, ESR ####[address] Crenated RBC Slight Normal [facility] Comment on above: Performed By: #### D IFF CBC, ESR ####[address] Eosinophils/100 WBC (Bld) 1 % Normal 1-3 [facility] Comment on above: Performed By: #### D IFF CBC, ESR ####[address] Erythrocyte distribution width (RBC) [Ratio] 18.1 % High 12.0-14.8 [facility] Comment on above: Performed By: #### D IFF CBC, ESR ####[address] Hematocrit (Bld) [Volume fraction] 27.6 % Low 38.8-50.0 [facility] Comment on above: Performed By: #### D IFF CBC, ESR ####[address] Hemoglobin (Bld) [Mass/Vol] 9.1 g/dL Low 13.0-17.0 [facility] Comment on above: Performed By: #### D IFF CBC, ESR ####[address] Lymphocytes/100 WBC (Bld) 15 % Low 18-42 [facility] Comment on above: Performed By: #### D IFF CBC, ESR ####[address] MCH (RBC) [Entitic mass] 28.5 pg Normal 27.5-35.2 [facility] Comment on above: Performed By: #### D IFF CBC, ESR ####[address] MCV (RBC) [Entitic vol] 86.5 fL Normal 83.5-101 [facility] Comment on above: Performed By: #### D IFF CBC, ESR ####[address] Mean Corpuscular HGB Conc 32.9 g/dL Normal 32.5-35.6 [facility] Comment on above: Performed By: #### D IFF CBC, ESR ####[address] Monocytes/100 WBC (Bld) 24 % High 2-11 [facility] Comment on above: Performed By: #### D IFF CBC, ESR ####[address] Ovalocytes Slight Normal [facility] Comment on above: Performed By: #### D IFF CBC, ESR ####[place] [id number] [facility] Platelet Estimate Normal Normal Normal [facility] Comment on above: Performed By: #### D IFF CBC, ESR ####[address] Platelet mean volume (Bld) [Entitic vol] 8.0 fL Normal 6.6-10.1 [facility] Comment on above: Performed By: #### D IFF CBC, ESR ####[place] [id number] Platelet Morphology Normal Normal Normal [facility] Comment on above: Performed By: #### D IFF CBC, ESR ####[place] [id number] [facility] Platelets (Bld) [#/Vol] 238 10*3/uL Normal 150-450 [facility] Comment on above: Performed By: #### D IFF CBC, ESR ####[address] Poikilocytosis Slight Normal [facility] Comment on above: Performed By: #### D IFF CBC, ESR ####[address] Polychromasia Slight Normal [facility] Comment on above: Performed By: #### D IFF CBC, ESR ####[address] RBC (Bld) [#/Vol] 3.19 10*6/uL Low 3.90-5.60 [facility] Comment on above: Performed By: #### D IFF CBC, ESR ####[address] Rouleaux Slight Normal [facility] Comment on above: Performed By: #### D IFF CBC, ESR ####[address] Segmented neutrophils/100 WBC (Bld) 51 % Normal 50-70 [facility] Comment on above: Performed By: #### D IFF CBC, ESR ####[place] [id number] [facility] Tear Drop Cells Slight Normal [facility] Comment on above: Performed By: #### D IFF CBC, ESR ####[address] WBC (Bld) [#/Vol] 6.1 10*3/uL Normal 4.1-10.5 [facility] Comment on above: Performed By: #### D IFF CBC, ESR ####[address] [address] [facility] Erythrocyte Sedimentation Ra kunal 08-27-2023 ESR (Bld) [Velocity] 103 mm/h High 0-19 [facility] Comment on above: Result Comment: PERF ORMED BY:[place] [address] [address] [place], [place] [phone] MEDICAL DIRECTORDEAN MCWILLIAMS M.D. Performed By: #### D IFF CBC, ESR ####[place] [address] [place] [address] [facility] Erythrocyte sedimentation ra te by Photometric methodOrdered By: Denice Dahl on 08-27-2023 ESR Photometric method (Bld) [Velocity] 103 mm/hr High 0-19 [facility] Glucose Poct Glucometerson 0 08-27-2023 Glucose [Mass/Vol] 335 mg/dL Normal [facility] Comment on above: Result Comment: [facility] Glucose Reference Range is dependent on time and content of last meal. Glucose of more than 200 mg/dL in a nonstressed, ambulatory subject supports the diagnosis of Diabetes Mellitus.PERFORMED BY:[address] [place], [place] [phone] MEDICAL JAKE MCWILLIAMS M.D. Performed By: #### G LULS ####Point of Care testing, Glucose [Mass/Vol] 380 mg/dL Normal [facility] Comment on above: Result Comment: [facility] Glucose Reference Range is dependent on time and content of last meal. Glucose of more than 200 mg/dL in a nonstressed, ambulatory subject supports the diagnosis of Diabetes Mellitus.PERFORMED BY:[place] [address] [address] [place], [place] [phone] MEDICAL JAKE MCWILLIAMS M.D. Performed By: #### G LULS ####Point of Care testing, Commemt1 Glu2: Cleaned Meter Normal [facility] Comment on above: Result Comment: PERF ORMED BY:[place] [address] [address] [place], [place] [phone] MEDICAL DIRECTORDEAN MCWILLIAMS M.D. Performed By: #### G LULS ####Point of Care testing, Glucose [Mass/Vol] 154 mg/dL Normal [facility] Comment on above: Result Comment: [place] om Glucose Reference Range is dependent on time and content of last meal. Glucose of more than 200 mg/dL in a nonstressed, ambulatory subject supports the diagnosis of Diabetes Mellitus. Performed By: #### G LULS ####Point of Care testing, Commemt1 Glu2: Cleaned Meter Normal [facility] Comment on above: Result Comment: PERF ORMED BY:[place] [address] [place], [place] [phone] MEDICAL DIRECTORDEAN MCWILLIAMS M.D. Performed By: #### G LULS ####Point of Care testing, Glucose [Mass/Vol] 130 mg/dL Normal [facility] Comment on above: Result Comment: [place] om Glucose Reference Range is dependent on time and content of last meal. Glucose of more than 200 mg/dL in a nonstressed, ambulatory subject supports the diagnosis of Diabetes Mellitus. Performed By: #### G LULS ####Point of Care testing, MR foot RT wo conon 08-27-19 24 MR foot RT wo con Normal [facility] Rouleaux detectionOrdered By : Denice Dahl on 08-27-2023 Rouleaux LM Ql (Bld) Slight [facility] Teardrop cell detectionOrder ed By: Denice Dahl on 08-27-2023 Dacrocytes LM Ql (Bld) Slight [facility] A1C with Estimated Average G luon 08-26-2023 Glucose [Mass/Vol] 209 mg/dL Normal [facility] Comment on above: Result Comment: PERF ORMED BY:[place] [address] [place], [place] [phone] MEDICAL DIRECTORDEAN MCWILLIAMS M.D. Performed By: #### A 1C WTH eA ####[facility] [id number] [place] [address] [place] Bacteria identified Aer cx N om (Unsp spec)Ordered By: Denice Dahl on 08-26-2023 Superficial Wound Culture Proteus mirabilis Abnormal [facility] C-Reactive Proteinon 024 C-Reactive Protein 27.4 mg/dL High 0.0-0.5 [facility] Comment on above: Result Comment: PERF ORMED BY:[address] [place], [place] [phone] MEDICAL DIRECTORDEAN MCWILLIAMS M.D. Performed By: #### M G, CRP, ESR, CMP, CBC ####[place] [id number] [facility] Complete Blood Count Auto Di ffon 08-26-2023 Basophils (Bld) [#/Vol] 0.1 10*3/uL Normal 0.0-0.2 [facility] Comment on above: Performed By: #### M G, CRP, ESR, CMP, CBC ####[place] [id number] [facility] Basophils/100 WBC (Bld) 0.7 % Normal . [facility] Comment on above: Performed By: #### M G, CRP, ESR, CMP, CBC ####[address] Eosinophils (Bld) [#/Vol] 0.1 10*3/uL Normal 0.0-0.45 [facility] Comment on above: Performed By: #### M G, CRP, ESR, CMP, CBC ####[address] Eosinophils/100 WBC (Bld) 1.2 % Normal . [facility] Comment on above: Performed By: #### M G, CRP, ESR, CMP, CBC ####[address] Erythrocyte distribution width (RBC) [Ratio] 18.3 % High 12.0-14.8 [facility] Comment on above: Performed By: #### M G, CRP, ESR, CMP, CBC ####[address] Hematocrit (Bld) [Volume fraction] 30.9 % Low 38.8-50.0 [facility] Comment on above: Performed By: #### M G, CRP, ESR, CMP, CBC ####[address] Hemoglobin (Bld) [Mass/Vol] 10.2 g/dL Low 13.0-17.0 [facility] Comment on above: Performed By: #### M G, CRP, ESR, CMP, CBC ####[address] Lymphocytes (Bld) [#/Vol] 0.3 10*3/uL Low 1.00-4.8 [facility] Comment on above: Performed By: #### M G, CRP, ESR, CMP, CBC ####[address] Lymphocytes/100 WBC (Bld) 3.7 % Normal . [facility] Comment on above: Performed By: #### M G, CRP, ESR, CMP, CBC ####[address] MCH (RBC) [Entitic mass] 28.4 pg Normal 27.5-35.2 [facility] Comment on above: Performed By: #### M G, CRP, ESR, CMP, CBC ####[address] MCV (RBC) [Entitic vol] 86.3 fL Normal 83.5-101 [facility] Comment on above: Performed By: #### M G, CRP, ESR, CMP, CBC ####[address] Mean Corpuscular HGB Conc 32.9 g/dL Normal 32.5-35.6 [facility] Comment on above: Performed By: #### M G, CRP, ESR, CMP, CBC ####[address] Monocytes (Bld) [#/Vol] 0.9 10*3/uL High 0.0-0.8 [facility] Comment on above: Performed By: #### M G, CRP, ESR, CMP, CBC ####[address] Monocytes/100 WBC (Bld) 10.7 % Normal . [facility] Comment on above: Performed By: #### M G, CRP, ESR, CMP, CBC ####[address] Neutrophils (Bld) [#/Vol] 7.1 10*3/uL Normal 1.8-7.7 [facility] Comment on above: Performed By: #### M G, CRP, ESR, CMP, CBC ####[address] Neutrophils/100 WBC (Bld) 83.7 % Normal . [facility] Comment on above: Performed By: #### M G, CRP, ESR, CMP, CBC ####[address] NRBC% 0.0 /100{WBC} Normal 0-0.5 [facility] Comment on above: Performed By: #### M G, CRP, ESR, CMP, CBC ####[address] Platelet mean volume (Bld) [Entitic vol] 7.7 fL Normal 6.6-10.1 [facility] Comment on above: Performed By: #### M G, CRP, ESR, CMP, CBC ####[address] Platelets (Bld) [#/Vol] 226 10*3/uL Normal 150-450 [facility] Comment on above: Performed By: #### M G, CRP, ESR, CMP, CBC ####[address] RBC (Bld) [#/Vol] 3.58 10*6/uL Low 3.90-5.60 [facility] Comment on above: Performed By: #### M G, CRP, ESR, CMP, CBC ####[address] WBC (Bld) [#/Vol] 8.5 10*3/uL Normal 4.1-10.5 [facility] Comment on above: Performed By: #### M G, CRP, ESR, CMP, CBC ####[address] Comprehensive Metabolic Pane raghu 08-26-2023 Albumin [Mass/Vol] 3.0 g/dL Low 3.5-5.7 [facility] Comment on above: Performed By: #### M G, CRP, ESR, CMP, CBC ####[address] Albumin/Globulin [Mass ratio] 0.8 {ratio} Normal [facility] Comment on above: Performed By: #### M G, CRP, ESR, CMP, CBC ####[address] ALP [Catalytic activity/Vol] 62 U/L Normal 34-104 [facility] Comment on above: Performed By: #### M G, CRP, ESR, CMP, CBC ####[address] ALT [Catalytic activity/Vol] 15 U/L Normal 7-52 [facility] Comment on above: Performed By: #### M G, CRP, ESR, CMP, CBC ####[address] Anion gap [Moles/Vol] 17.3 mmol/L High 6.0-15.0 [facility] Comment on above: Performed By: #### M G, CRP, ESR, CMP, CBC ####[address] AST [Catalytic activity/Vol] 29 U/L Normal 13-39 [facility] Comment on above: Performed By: #### M G, CRP, ESR, CMP, CBC ####[address] Bilirubin [Mass/Vol] 0.8 mg/dL Normal 0.3-1.0 [facility] Comment on above: Performed By: #### M G, CRP, ESR, CMP, CBC ####[address] Calcium [Mass/Vol] 9.5 mg/dL Normal 8.6-10.3 [facility] Comment on above: Performed By: #### M G, CRP, ESR, CMP, CBC ####[address] Chloride [Moles/Vol] 92 mmol/L Low 98-107 [facility] Comment on above: Performed By: #### M G, CRP, ESR, CMP, CBC ####[address] CO2 [Moles/Vol] 28.9 mmol/L Normal 21.0-31.0 [facility] Comment on above: Performed By: #### M G, CRP, ESR, CMP, CBC ####[address] Creatinine [Mass/Vol] 10.52 mg/dL Significan t change up 0.70-1.30 [facility] Comment on above: Performed By: #### M G, CRP, ESR, CMP, CBC ####[address] Creatinine Clr Calc Pharmacy 7.26 Normal [facility] Comment on above: Performed By: #### M G, CRP, ESR, CMP, CBC ####[address] GFR/1.73 sq M.predicted MDRD (S/P/Bld) [Vol rate/Area] 4.898 mL/min/{1.73_m2} Normal [facility] Comment on above: Performed By: #### M G, CRP, ESR, CMP, CBC ####[address] [place] [address] [place] Globulin (S) [Mass/Vol] 3.8 g/dL Normal [facility] Comment on above: Performed By: #### M G, CRP, ESR, CMP, CBC ####[address] Glucose [Mass/Vol] 174 mg/dL Significant change up 70-100 [facility] Comment on above: Result Comment: [facility] Glucose Reference Range is dependent on time and content of last meal. Glucose of more than 200 mg/dL in a nonstressed, ambulatory subject supports the diagnosis of Diabetes Mellitus. ADA recommended reference range Performed By: #### M G, CRP, ESR, CMP, CBC ####[address] Potassium [Moles/Vol] 5.2 mmol/L High 3.5-5.1 [facility] Comment on above: Performed By: #### M G, CRP, ESR, CMP, CBC ####[address] Protein [Mass/Vol] 6.8 g/dL Normal 6.4-8.9 [facility] Comment on above: Performed By: #### M G, CRP, ESR, CMP, CBC ####[address] Sodium [Moles/Vol] 133 mmol/L Significant change down 136-145 [facility] Comment on above: Performed By: #### M G, CRP, ESR, CMP, CBC ####[address] Urea nitrogen [Mass/Vol] 45 mg/dL High 7-25 [facility] Comment on above: Performed By: #### M G, CRP, ESR, CMP, CBC ####[address] ECG 12 lead ECGon 08-26-2023 ECG 12 lead ECG Normal [facility] Erythrocyte Sedimentation Ra kunal 08-26-2023 ESR (Bld) [Velocity] 86 mm/h High 0-19 [facility] Comment on above: Result Comment: PERF ORMED BY:[address] [place], [place] [phone] MEDICAL DIRECTORDEAN MCWILLIAMS M.D. Performed By: #### M G, CRP, ESR, CMP, CBC ####[address] [address] [facility] Glucose Poct Glucometerson 0 08-26-2023 Glucose [Mass/Vol] 360 mg/dL Normal [facility] Comment on above: Result Comment: [place] om Glucose Reference Range is dependent on time and content of last meal. Glucose of more than 200 mg/dL in a nonstressed, ambulatory subject supports the diagnosis of Diabetes Mellitus.PERFORMED BY:[address] [place], [place] [phone] MEDICAL DIRECTORDEAN MCWILLIAMS M.D. Performed By: #### G LULS ####Point of Care testing, Glucose [Mass/Vol] 111 mg/dL Normal [facility] Comment on above: Result Comment: [place] om Glucose Reference Range is dependent on time and content of last meal. Glucose of more than 200 mg/dL in a nonstressed, ambulatory subject supports the diagnosis of Diabetes Mellitus.PERFORMED BY:[address] [place], [place] [phone] MEDICAL JAKE MCWILLIAMS M.D. Performed By: #### G LULS ####Point of Care testing, Commemt1 Glu2: Cleaned Meter Normal [facility] Comment on above: Result Comment: PERF ORMED BY:[address] [place], [place] [phone] MEDICAL DIRECTORDEAN MCWILLIAMS M.D. Performed By: #### G LULS ####Point of Care testing, Glucose [Mass/Vol] 162 mg/dL Normal [facility] Comment on above: Result Comment: [place] om Glucose Reference Range is dependent on time and content of last meal. Glucose of more than 200 mg/dL in a nonstressed, ambulatory subject supports the diagnosis of Diabetes Mellitus. Performed By: #### G LULS ####Point of Care testing, Commemt1 Glu2: Cleaned Meter Normal [facility] Comment on above: Result Comment: PERF ORMED BY:[address] [place], [place] [phone] MEDICAL DIRECTORDEAN MCWILLIAMS M.D. Performed By: #### G LULS ####Point of Care testing, Glucose [Mass/Vol] 171 mg/dL Normal [facility] Comment on above: Result Comment: [facility] Glucose Reference Range is dependent on time [...] from glycated hemoglobin (Bld) [Mass/Vol] 209 mg/dL [facility] Hemoglobin A1c percentageOrd ered By: Alon Santiago on 08-26-2023 HbA1c (Bld) [Mass fraction] 8.9 % High 4.3-5.6 [facility] Comment on above: Increased risk for d iabetes: 5.7 - 6.4diabetes: >6.4glycemic control for adults with diabetes: <7.0 Result Comment: Incr eased risk for diabetes: 5.7 - 6.4 diabetes: >6.4 glycemic control for adults with diabetes: <7.0 Performed By: #### A 1C WTH eA ####[facility] [id number] [place] [id number] [facility] Magnesium [Mass/volume] in S bushra or PlasmaOrdered By: Alon Santiago on 08-26-2023 Magnesium [Mass/Vol] 2.1 mg/dL Normal 1.9-2.7 [facility] Comment on above: Performed By: #### M G, CRP, ESR, CMP, CBC ####[facility] [id number] [place] [address] [facility] Superficial Wound Cultureon 08-26-2023 Superficial Wound Culture Normal [facility] Comment on above: Performed By: #### C USUP ####[address] [address] [facility] US arterial pvr rest Amber US arterial pvr rest LE Normal [facility] US venous duplex LE BIon US venous duplex LE BI Normal Th e [facility] Bacterial blood cultureOrder ed By: Alon Santiago on 08-25-2023 Bacteria identified Cx Nom (Bld) NO GROWTH 5 DAYS [facility] Bacteria identified Cx Nom (Bld) NO GROWTH 5 DAYS [facility] Blood Cultureon 08-25-2023 Bacteria identified Cx Nom (Bld) NO GROWTH 5 DAYS PERFORMED BY: [facility] [address] [id number] PATHOLOGIST MEDICAL ECONOMICS CONSULTANT DEAN MCWILLIAMS M.D. Normal [facility] Comment on above: Performed By: #### C UBLD ####[place] [id number] [facility] Bacteria identified Cx Nom (Bld) NO GROWTH 5 DAYS PERFORMED BY: [facility] [address] [facility] CENTERBensonElodia [place] [id number] PATHOLOGIST MEDICAL ECONOMICS CONSULTANT DEAN MCWILLIAMS M.D. Normal [facility] Comment on above: Performed By: #### C UBLD ####[place] [id number] [facility] Complete Blood Count Auto Di ffon 08-25-2023 Basophils (Bld) [#/Vol] 0.0 10*3/uL Normal 0.0-0.2 [facility] Comment on above: Result Comment: PERF ORMED BY:[address]ES [place], [place] [phone] MEDICAL DIRECTORDEAN MCWILLIAMS M.D. Performed By: #### C MP, CBC ####[place] [id number] [facility] Basophils/100 WBC (Bld) 0.5 % Normal . [facility] Comment on above: Performed By: #### C MP, CBC ####[address] Eosinophils (Bld) [#/Vol] 0.0 10*3/uL Normal 0.0-0.45 [facility] Comment on above: Performed By: #### C MP, CBC ####[place] [id number] [facility] Eosinophils/100 WBC (Bld) 0.2 % Normal . [facility] Comment on above: Performed By: #### C MP, CBC ####[address] Erythrocyte distribution width (RBC) [Ratio] 18.3 % High 12.0-14.8 [facility] Comment on above: Performed By: #### C MP, CBC ####[address] Hematocrit (Bld) [Volume fraction] 30.5 % Low 38.8-50.0 [facility] Comment on above: Performed By: #### C MP, CBC ####[address] Hemoglobin (Bld) [Mass/Vol] 9.8 g/dL Low 13.0-17.0 [facility] Comment on above: Performed By: #### C MP, CBC ####[address] Lymphocytes (Bld) [#/Vol] 0.3 10*3/uL Low 1.00-4.8 [facility] Comment on above: Performed By: #### C MP, CBC ####[address] Lymphocytes/100 WBC (Bld) 3.4 % Normal . [facility] Comment on above: Performed By: #### C MP, CBC ####[address] MCH (RBC) [Entitic mass] 28.0 pg Normal 27.5-35.2 [facility] Comment on above: Performed By: #### C MP, CBC ####[address] MCV (RBC) [Entitic vol] 87.9 fL Normal 83.5-101 [facility] Comment on above: Performed By: #### C MP, CBC ####[address] Mean Corpuscular HGB Conc 31.9 g/dL Low 32.5-35.6 [facility] Comment on above: Performed By: #### C MP, CBC ####[address] Monocytes (Bld) [#/Vol] 0.9 10*3/uL High 0.0-0.8 [facility] Comment on above: Performed By: #### C MP, CBC ####[address] Monocytes/100 WBC (Bld) 11.1 % Normal . [facility] Comment on above: Performed By: #### C MP, CBC ####[address] Neutrophils (Bld) [#/Vol] 6.9 10*3/uL Normal 1.8-7.7 [facility] Comment on above: Performed By: #### C MP, CBC ####[place] [id number] [facility] Neutrophils/100 WBC (Bld) 84.8 % Normal . [facility] Comment on above: Performed By: #### C MP, CBC ####[address] NRBC% 0.0 /100{WBC} Normal 0-0.5 [facility] Comment on above: Performed By: #### C MP, CBC ####[address] Platelet mean volume (Bld) [Entitic vol] 7.8 fL Normal 6.6-10.1 [facility] Comment on above: Performed By: #### C MP, CBC ####[place] [id number] [facility] Platelets (Bld) [#/Vol] 236 10*3/uL Normal 150-450 [facility] Comment on above: Performed By: #### C MP, CBC ####[address] RBC (Bld) [#/Vol] 3.48 10*6/uL Low 3.90-5.60 [facility] Comment on above: Performed By: #### C MP, CBC ####[place] [id number] [facility] WBC (Bld) [#/Vol] 8.1 10*3/uL Normal 4.1-10.5 [facility] Comment on above: Performed By: #### C MP, CBC ####[address] Comprehensive Metabolic Pane raghu 08-25-2023 Albumin [Mass/Vol] 3.3 g/dL Low 3.5-5.7 [facility] Comment on above: Performed By: #### C MP, CBC ####[address] Albumin/Globulin [Mass ratio] 0.8 {ratio} Normal [facility] Comment on above: Performed By: #### C MP, CBC ####[place] [id number] [facility] ALP [Catalytic activity/Vol] 66 U/L Normal 34-104 [facility] Comment on above: Performed By: #### C MP, CBC ####[place] [id number] [facility] ALT [Catalytic activity/Vol] 11 U/L Normal 7-52 [facility] Comment on above: Performed By: #### C MP, CBC ####[place] [id number] [facility] Anion gap [Moles/Vol] 16.6 mmol/L High 6.0-15.0 [facility] Comment on above: Performed By: #### C MP, CBC ####[address] [address] [facility] AST [Catalytic activity/Vol] 17 U/L Normal 13-39 [facility] Comment on above: Performed By: #### C MP, CBC ####[address] [address] [facility] Bilirubin [Mass/Vol] 0.8 mg/dL Normal 0.3-1.0 [facility] Comment on above: Performed By: #### C MP, CBC ####[address] [address] [facility] Calcium [Mass/Vol] 10.0 mg/dL Normal 8.6-10.3 [facility] Comment on above: Performed By: #### C MP, CBC ####[place] [id number] [facility] Chloride [Moles/Vol] 90 mmol/L Low 98-107 [facility] Comment on above: Performed By: #### C MP, CBC ####[place] [id number] [facility] CO2 [Moles/Vol] 25.8 mmol/L Normal 21.0-31.0 [facility] Comment on above: Performed By: #### C MP, CBC ####[address] [address] [facility] Creatinine [Mass/Vol] 8.91 mg/dL High 0.70-1.30 [facility] Comment on above: Performed By: #### C MP, CBC ####[place] [id number] [facility] Creatinine Clr Calc Pharmacy 9.28 Normal [facility] Comment on above: Result Comment: PERF ORMED BY:[place] [address] [place], [place] [phone] MEDICAL DIRECTORDEAN MCWILLIAMS M.D. Performed By: #### C MP, CBC ####[address] [address] [place] GFR/1.73 sq M.predicted MDRD (S/P/Bld) [Vol rate/Area] 5.978 mL/min/{1.73_m2} Normal [facility] Comment on above: Performed By: #### C MP, CBC ####[place] [id number] [facility] Globulin (S) [Mass/Vol] 4.3 g/dL Normal [facility] Comment on above: Performed By: #### C MP, CBC ####[place] [id number] [facility] Glucose [Mass/Vol] 428 mg/dL High 70-100 [facility] Comment on above: Result Comment: [place] Glucose Reference Range is dependent on time and content of last meal. Glucose of more than 200 mg/dL in a nonstressed, ambulatory subject supports the diagnosis of Diabetes Mellitus. ADA recommended reference range Performed By: #### C MP, CBC ####[place] [id number] [facility] Potassium [Moles/Vol] 5.4 mmol/L High 3.5-5.1 [facility] Comment on above: Performed By: #### C MP, CBC ####[place] [id number] [facility] Protein [Mass/Vol] 7.6 g/dL Normal 6.4-8.9 [facility] Comment on above: Performed By: #### C MP, CBC ####[place] [id number] [facility] Sodium [Moles/Vol] 127 mmol/L Low 136-145 [facility] Comment on above: Performed By: #### C MP, CBC ####[address] [address] [facility] Urea nitrogen [Mass/Vol] 37 mg/dL High 7-25 [facility] Comment on above: Performed By: #### C MP, CBC ####[address] [address] [facility] Glucose Poct Glucometerson 0 08-25-2023 Glucose [Mass/Vol] 329 mg/dL Normal [facility] Comment on above: Result Comment: [place] om Glucose Reference Range is dependent on time and content of last meal. Glucose of more than 200 mg/dL in a nonstressed, ambulatory subject supports the diagnosis of Diabetes Mellitus.PERFORMED BY:[place] [address] [place], [place] [phone] MEDICAL DIRECTORDEAN MCWILLIAMS M.D. Performed By: #### G LULS ####Point of Care testing, Commemt1 Normal [facility] Comment on above: Result Comment: Glu2 : WILL NOTIFY DR/RNPERFORMED BY:[address] ZAVALAElodiaADE, [place] [phone] MEDICAL DIRECTORDEAN MCWILLIAMS M.D. Performed By: #### G LULS ####Point of Care testing, Glucose [Mass/Vol] 441 mg/dL Off scale high Th e [facility] Comment on above: Result Comment: [place] Glucose Reference Range is dependent on time and content of last meal. Glucose of more than 200 mg/dL in a nonstressed, ambulatory subject supports the diagnosis of Diabetes Mellitus. Performed By: #### G LULS ####Point of Care testing, Commemt1 [place] [facility] Comment on above: Result Comment: Glu2 : Will Repeat TestPERFORMED BY:[address] ZAVALAElodiaADE, [place] [phone] MEDICAL DIRECTORDEAN MCWILLIAMS M.D. Performed By: #### G LULS ####Point of Care testing, Glucose [Mass/Vol] 420 mg/dL Off scale high Th [facility] Comment on above: Result Comment: [place] om Glucose Reference Range is dependent on time and content of last meal. Glucose of more than 200 mg/dL in a nonstressed, ambulatory subject supports the diagnosis of Diabetes Mellitus. Performed By: #### G LULS ####Point of Care testing, Commemt1 Glu2: Cleaned Meter Normal [facility] Comment on above: Performed By: #### G LULS ####Point of Care testing, Commemt2 WILL NOTIFY DR/RN Normal [facility] Comment on above: Result Comment: PERF ORMED BY:[place] [address] [place], [place] [phone] MEDICAL DIRECTORDEAN MCWILLIAMS M.D. Performed By: #### G LULS ####Point of Care testing, Glucose [Mass/Vol] 393 mg/dL Normal [facility] Comment on above: Result Comment: [facility] Glucose Reference Range is dependent on time and content of last meal. Glucose of more than 200 mg/dL in a nonstressed, ambulatory subject supports the diagnosis of Diabetes Mellitus. Performed By: #### G LULS ####Point of Care testing, Lactate [Moles/volume] in Se rum or PlasmaOrdered By: Alon Santiago on 08-25-2023 Lactate [Moles/Vol] 1.6 mmol/L Normal 0.5-2.2 [facility] Comment on above: Result Comment: PERF ORMED BY:[address] [place], [place] [phone] MEDICAL DIRECTORDEAN MCWILLIAMS M.D. Performed By: #### L ACTIC ####[place] [id number] [facility] XR foot BI 2Von 08-25-2023 XR foot BI 2V Normal [facility] Automated basophil %Ordered By: Gabriel Gould on 06-26-2023 Basophils/100 WBC (Bld) 0.6 % Normal . [facility] Comment on above: Performed By: #### B MP, MG, CBC ####[place] [id number] [facility] Automated basophil countOrde red By: Gabriel Gould on 06-26-2023 Basophils (Bld) [#/Vol] 0.0 10*3/uL Normal 0.0-0.2 [facility] Comment on above: Result Comment: PERF ORMED BY:[place] [address] [place] [place], [place] [phone] MEDICAL DIRECTORDEAN MCWILLIAMS M.D. Performed By: #### B MP, MG, CBC ####[address] Automated blood monocyte cou ntOrdered By: Gabriel Gould on 06-26-2023 Monocytes (Bld) [#/Vol] 1.6 10*3/uL High 0.0-0.8 [facility] Comment on above: Performed By: #### B MP, MG, CBC ####[address] Automated eosinophil %Ordere d By: Gabriel Gould on 06-26-2023 Eosinophils/100 WBC (Bld) 2.1 % Normal . [facility] Comment on above: Performed By: #### B MP, MG, CBC ####[address] Automated eosinophil countOr dered By: Gabriel Gould on 06-26-2023 Eosinophils (Bld) [#/Vol] 0.2 10*3/uL Normal 0.0-0.45 [facility] Comment on above: Performed By: #### B MP, MG, CBC ####[address] Automated monocyte %Ordered By: Gabriel Gould on 06-26-2023 Monocytes/100 WBC (Bld) 19.8 % Normal . [facility] [facility] Comment on above: Performed By: #### B MP, MG, CBC ####[address] Automated neutrophil %Ordere d By: Gabriel Gould on 06-26-2023 Neutrophils/100 WBC (Bld) 65.0 % Normal . [facility] Comment on above: Performed By: #### B MP, MG, CBC ####[address] Basic Metabolic Panelon 06-11 Creatinine Clr Calc Pharmacy 10.35 Normal [facility] Comment on above: Performed By: #### B MP, MG, CBC ####[place] [address] [facility] GFR/1.73 sq M.predicted MDRD (S/P/Bld) [Vol rate/Area] 6.692 mL/min/{1.73_m2} Normal [facility] Comment on above: Performed By: #### B MP, MG, CBC ####[place] [address] [place] [id number] [facility] Calcium [Mass/volume] in Ser um or PlasmaOrdered By: Gabriel Gould on 06-26-2023 Calcium [Mass/Vol] 8.9 mg/dL Normal 8.6-10.3 [facility] Comment on above: Performed By: #### B MP, MG, CBC ####[place] [address] Capillary blood glucose mike urement by glucometer (mass/volume)Ordered By: Diony Devi on 06-26-2023 Glucose [Mass/Vol] 138 mg/dL Normal [facility] Comment on above: Random Glucose Refer ence Range is dependent on time and content of last meal. Glucose of more than 200 mg/dL in a nonstressed, ambulatory subject supports the diagnosis of Diabetes Mellitus. Result Comment: [place] Glucose Reference Range is dependent on time and content of last meal. Glucose of more than 200 mg/dL in a nonstressed, ambulatory subject supports the diagnosis of Diabetes Mellitus. Performed By: #### G LUELLIS ####Point of Care testing, Carbon dioxide, total [Moles /volume] in Serum or PlasmaOrdered By: Gabriel Gould on 06-26-2023 CO2 [Moles/Vol] 29.1 mmol/L Normal 21.0-31.0 [facility] Comment on above: Performed By: #### B MP, MG, CBC ####[place] [address] [place] [id number] [place] Chloride [Moles/volume] in S bushra or PlasmaOrdered By: Gabriel Gould on 06-26-2023 Chloride [Moles/Vol] 97 mmol/L Low 98-107 [facility] Comment on above: Performed By: #### B MP, MG, CBC ####[place] [address] [place] [phone] [facility] Complete Blood Count Auto Di ffon 06-26-2023 Mean Corpuscular HGB Conc 33.0 g/dL Normal 32.5-35.6 [facility] Comment on above: Performed By: #### B MP, MG, CBC ####[address] NRBC% 0.0 /100{WBC} Normal 0-0.5 [facility] Comment on above: Performed By: #### B MP, MG, CBC ####[address] Creatinine [Mass/volume] in Serum or PlasmaOrdered By: Gabriel Gould on 06-26-2023 Creatinine [Mass/Vol] 8.11 mg/dL Significan t change up 0.70-1.30 [facility] Comment on above: [place]: 6.09 on 06/24 Performed By: #### B MP, MG, CBC ####[address] Erythrocyte distribution wid th [Ratio] by Automated countOrdered By: Gabriel Gould on 06-26-2023 Erythrocyte distribution width (RBC) [Ratio] 15.4 % High 12.0-14.8 [facility] Comment on above: Performed By: #### B MP, MG, CBC ####[address] Erythrocytes [#/volume] in B lood by Automated countOrdered By: Gabriel Gould on 06-26-2023 RBC (Bld) [#/Vol] 3.34 10*6/uL Low 3.90-5.60 [facility] Comment on above: Performed By: #### B MP, MG, CBC ####[address] Glucose Poct Glucometerson 0 06-26-2023 Commemt1 Glu2: Cleaned Meter Normal [facility] Comment on above: Result Comment: PERF ORMED BY:[place] [address] [place], [place] [phone] MEDICAL DIRECTORDEAN MCWILLIAMS M.D. Performed By: #### G DARLENE ####Point of Care testing, Glucose [Mass/Vol] 78 mg/dL Normal [facility] Comment on above: Result Comment: [place] om Glucose Reference Range is dependent on time and content of last meal. Glucose of more than 200 mg/dL in a nonstressed, ambulatory subject supports the diagnosis of Diabetes Mellitus.PERFORMED BY:[place] [address] [place], [place] [phone] MEDICAL DIRECTORDEAN MCWILLIAMS M.D. Performed By: #### G DARLENE ####Point of Care testing, Glucose [Mass/volume] in Ser um or PlasmaOrdered By: Gabriel Gould on 06-26-2023 Glucose [Mass/Vol] 72 mg/dL Normal 70-100 [facility] Comment on above: ADA recommended refe rence rangeRandom Glucose Reference Range is dependent on time and content of last meal. Glucose of more than 200 mg/dL in a nonstressed, ambulatory subject supports the diagnosis of Diabetes Mellitus. Result Comment: [place] om Glucose Reference Range is dependent on time and content of last meal. Glucose of more than 200 mg/dL in a nonstressed, ambulatory subject supports the diagnosis of Diabetes Mellitus. ADA recommended reference range Performed By: #### B MP, MG, CBC ####[place] [id number] [facility] Hematocrit [Volume Fraction] of Blood by Automated countOrdered By: Gabriel Gould on 06-26-2023 Hematocrit (Bld) [Volume fraction] 29.2 % Low 38.8-50.0 [facility] Comment on above: Performed By: #### B MP, MG, CBC ####[address] [address] [facility] Hemoglobin [Mass/volume] in BloodOrdered By: Gabriel Gould on 06-26-2023 Hemoglobin (Bld) [Mass/Vol] 9.7 g/dL Low 13.0-17.0 [facility] Comment on above: Performed By: #### B MP, MG, CBC ####[address] Leukocytes [#/volume] correc jennifer for nucleated erythrocytes in Blood by Automated counOrdered By: Gabriel Gould on 06-26-2023 WBC corrected for nucl RBC Auto (Bld) [#/Vol] 8.1 10*3/uL 4.1-10.5 [facility] Leukocytes [#/volume] in Blo od by Automated countOrdered By: Gabriel Gould on 06-26-2023 WBC (Bld) [#/Vol] 8.1 10*3/uL Normal 4.1-10.5 [facility] Comment on above: Performed By: #### B MP, MG, CBC ####[address] Lymphocytes [#/volume] in Bl ood by Automated countOrdered By: Gabriel Gould on 06-26-2023 Lymphocytes (Bld) [#/Vol] 1.0 10*3/uL Normal 1.00-4.8 [facility] Comment on above: Performed By: #### B MP, MG, CBC ####[address] Lymphocytes/100 leukocytes i n Blood by Automated countOrdered By: Gabriel Gould on 06-26-2023 Lymphocytes/100 WBC (Bld) 12.5 % Normal . [facility] Comment on above: Performed By: #### B MP, MG, CBC ####[address] MCH [Entitic mass] by Automa jennifer countOrdered By: Gabriel Gould on 06-26-2023 MCH (RBC) [Entitic mass] 28.9 pg Normal 27.5-35.2 [facility] Comment on above: Performed By: #### B MP, MG, CBC ####[address] MCHC Auto (RBC) [Mass/Vol]Or dered By: Gabriel Gould on 06-26-2023 MCHC (RBC) [Mass/Vol] 33.0 g/dL 32.5-35.6 [facility] MCV [Entitic volume] by Auto mated countOrdered By: Gabriel Gould on 06-26-2023 MCV (RBC) [Entitic vol] 87.4 fL Normal 83.5-101 [facility] Comment on above: Performed By: #### B MP, MG, CBC ####[place] [address] Magnesium [Mass/volume] in S bushra or PlasmaOrdered By: Gabriel Gould on 06-26-2023 Magnesium [Mass/Vol] 1.9 mg/dL Normal 1.9-2.7 [facility] Comment on above: Result Comment: PERF ORMED BY:[address] [place], [place] [phone] MEDICAL DIRECTORDEAN MCWILLIAMS M.D. Performed By: #### B MP, MG, CBC ####[place] [phone] [facility] Neutrophils [#/volume] in Bl ood by Automated countOrdered By: Gabriel Gould on 06-26-2023 Neutrophils (Bld) [#/Vol] 5.3 10*3/uL Normal 1.8-7.7 [facility] Comment on above: Performed By: #### B MP, MG, CBC ####[address] No Panel InformationOrdered By: Diony Devi on 06-26-2023 Bedside Glucose Comment Glu2: cleaned meter [facility] No Panel InformationOrdered By: Gabriel Gould on 06-26-2023 Estimated GFR (CKD-EPI) 6.692 mL/Min [facility] Creatinine Clearance (Chem 10.35 [facility] Nucleated erythrocytes [Pres ence] in Blood by Automated countOrdered By: Gabriel Gould on 06-26-2023 Nucleated RBC Auto Ql (Bld) 0.0 /100{WBC} 0-0.5 [facility] Platelet mean volume [Entiti c volume] in Blood by Automated countOrdered By: Gabriel oGuld on 06-26-2023 Platelet mean volume (Bld) [Entitic vol] 7.8 fL Normal 6.6-10.1 [facility] Comment on above: Performed By: #### B MP, MG, CBC ####[place] [address] [place] [phone] [facility] Platelets [#/volume] in Bloo d by Automated countOrdered By: Gabriel Gould on 06-26-2023 Platelets (Bld) [#/Vol] 315 10*3/uL Normal 150-450 [facility] Comment on above: Performed By: #### B MP, MG, CBC ####[place] [id number] [facility] Potassium [Moles/volume] in Serum or PlasmaOrdered By: Gabriel Gould on 06-26-2023 Potassium [Moles/Vol] 4.3 mmol/L Normal 3.5-5.1 [facility] Comment on above: Performed By: #### B MP, MG, CBC ####[place] [id number] [facility] Serum or plasma anion gap de terminationOrdered By: Gabriel Gould on 06-26-2023 Anion gap [Moles/Vol] 6.2 mmol/L Normal 6.0-15.0 [facility] Comment on above: Performed By: #### B MP, MG, CBC ####[place] [id number] [facility] Sodium [Moles/volume] in Ser um or PlasmaOrdered By: Gabriel Gould on 06-26-2023 Sodium [Moles/Vol] 128 mmol/L Low 136-145 [facility] Comment on above: Performed By: #### B MP, MG, CBC ####[address] [address] [facility] Urea nitrogen [Mass/volume] in Serum or PlasmaOrdered By: Gabriel Gould on 06-26-2023 Urea nitrogen [Mass/Vol] 30 mg/dL High 7-25 [facility] Comment on above: Performed By: #### B MP, MG, CBC ####[address] Aerobic Cultureon 06-25-2023 Aerobic Culture Normal [facility] Comment on above: Performed By: #### A ERC ####[address] Basic Metabolic Panelon 06-11 Anion gap [Moles/Vol] 8.7 mmol/L Normal 6.0-15.0 [facility] Comment on above: Performed By: #### Ezekiel Lewis CBC, BMP ####[address] Calcium [Mass/Vol] 8.7 mg/dL Normal 8.6-10.3 [facility] Comment on above: Performed By: #### Ezekiel Lewis, CBC, BMP ####[address] Chloride [Moles/Vol] 95 mmol/L Low 98-107 [facility] Comment on above: Performed By: #### Ezekiel Lewis CBC, BMP ####[address] CO2 [Moles/Vol] 28.5 mmol/L Normal 21.0-31.0 [facility] Comment on above: Performed By: #### Ezekiel Lewis, CBC, BMP ####[address] Creatinine [Mass/Vol] 6.09 mg/dL Significan t change up 0.70-1.30 [facility] Comment on above: Performed By: #### Ezekiel Lewis, CBC, BMP ####[address] Creatinine Clr Calc Pharmacy 13.50 Normal [facility] Comment on above: Performed By: #### M G, CBC, BMP ####[address] GFR/1.73 sq M.predicted MDRD (S/P/Bld) [Vol rate/Area] 9.438 mL/min/{1.73_m2} Normal [facility] Comment on above: Performed By: #### Ezekiel Lewis, CBC, BMP ####[address] Glucose [Mass/Vol] 118 mg/dL High 70-100 [facility] Comment on above: Result Comment: [facility] Glucose Reference Range is dependent on time and content of last meal. Glucose of more than 200 mg/dL in a nonstressed, ambulatory subject supports the diagnosis of Diabetes Mellitus. ADA recommended reference range Performed By: #### M Debbie, CBC, BMP ####[address] Potassium [Moles/Vol] 4.2 mmol/L Normal 3.5-5.1 [facility] Comment on above: Performed By: #### Ezekiel Lewis, CBC, BMP ####[address] Sodium [Moles/Vol] 128 mmol/L Low 136-145 [facility] Comment on above: Performed By: #### Ezekiel Lewis, CBC, BMP ####[address] Urea nitrogen [Mass/Vol] 21 mg/dL Normal 7-25 [facility] Comment on above: Performed By: #### Ezekiel Lewis, CBC, BMP ####[place] [id number] [facility] Complete Blood Count Auto Di ffon 06-25-2023 Basophils (Bld) [#/Vol] 0.1 10*3/uL Normal 0.0-0.2 [facility] Comment on above: Result Comment: PERF ORMED BY:[address] [place], [place] [phone] MEDICAL DIRECTORDEAN MCWILLIAMS M.D. Performed By: #### M G, CBC, BMP ####[place] [id number] [place] Basophils/100 WBC (Bld) 1.0 % Normal . [facility] Comment on above: Performed By: #### M G, CBC, BMP ####[address] Eosinophils (Bld) [#/Vol] 0.2 10*3/uL Normal 0.0-0.45 [facility] Comment on above: Performed By: #### M G, CBC, BMP ####[address] Eosinophils/100 WBC (Bld) 3.7 % Normal . [facility] Comment on above: Performed By: #### M G, CBC, BMP ####[address] Erythrocyte distribution width (RBC) [Ratio] 15.5 % High 12.0-14.8 [facility] Comment on above: Performed By: #### M G, CBC, BMP ####[address] Hematocrit (Bld) [Volume fraction] 30.8 % Low 38.8-50.0 [facility] Comment on above: Performed By: #### M G, CBC, BMP ####[address] Hemoglobin (Bld) [Mass/Vol] 10.3 g/dL Low 13.0-17.0 [facility] Comment on above: Performed By: #### M G, CBC, BMP ####[address] Lymphocytes (Bld) [#/Vol] 1.0 10*3/uL Normal 1.00-4.8 [facility] Comment on above: Performed By: #### M G, CBC, BMP ####[address] Lymphocytes/100 WBC (Bld) 17.2 % Normal . [facility] Comment on above: Performed By: #### M G, CBC, BMP ####[address] MCH (RBC) [Entitic mass] 29.1 pg Normal 27.5-35.2 [facility] Comment on above: Performed By: #### M G, CBC, BMP ####[address] MCV (RBC) [Entitic vol] 87.2 fL Normal 83.5-101 [facility] Comment on above: Performed By: #### M G, CBC, BMP ####[address] Mean Corpuscular HGB Conc 33.3 g/dL Normal 32.5-35.6 [facility] Comment on above: Performed By: #### M G, CBC, BMP ####[address] Monocytes (Bld) [#/Vol] 1.2 10*3/uL High 0.0-0.8 [facility] Comment on above: Performed By: #### M G, CBC, BMP ####[address] Monocytes/100 WBC (Bld) 21.5 % Normal . [facility] Comment on above: Performed By: #### M G, CBC, BMP ####[address] Neutrophils (Bld) [#/Vol] 3.2 10*3/uL Normal 1.8-7.7 [facility] Comment on above: Performed By: #### M G, CBC, BMP ####[address] Neutrophils/100 WBC (Bld) 56.6 % Normal . [facility] Comment on above: Performed By: #### M G, CBC, BMP ####[address] NRBC% 0.1 /100{WBC} Normal 0-0.5 [facility] Comment on above: Performed By: #### M G, CBC, BMP ####[facility] [place] [address] [facility] Platelet mean volume (Bld) [Entitic vol] 7.9 fL Normal 6.6-10.1 [facility] Comment on above: Performed By: #### M G, CBC, BMP ####[address] [address] [facility] Platelets (Bld) [#/Vol] 276 10*3/uL Normal 150-450 [facility] Comment on above: Performed By: #### M G, CBC, BMP ####[address] [address] [facility] RBC (Bld) [#/Vol] 3.53 10*6/uL Low 3.90-5.60 [facility] Comment on above: Performed By: #### M G, CBC, BMP ####[address] [address] [facility] WBC (Bld) [#/Vol] 5.7 10*3/uL Normal 4.1-10.5 [facility] Comment on above: Performed By: #### M G, CBC, BMP ####[place] [id number] [facility] ECG 12 lead ECGon 06-25-2023 ECG 12 lead ECG Normal [facility] Glucose Poct Glucometerson 0 06-25-2023 Glucose [Mass/Vol] 135 mg/dL Normal [facility] Comment on above: Result Comment: [facility] Glucose Reference Range is dependent on time and content of last meal. Glucose of more than 200 mg/dL in a nonstressed, ambulatory subject supports the diagnosis of Diabetes Mellitus.PERFORMED BY:[address] [place], [place] [phone] MEDICAL DIRECTORDEAN MCWILLIAMS M.D. Performed By: #### G LULS ####Point of Care testing, Glucose [Mass/Vol] 270 mg/dL Normal [facility] Comment on above: Result Comment: [facility] Glucose Reference Range is dependent on time and content of last meal. Glucose of more than 200 mg/dL in a nonstressed, ambulatory subject supports the diagnosis of Diabetes Mellitus.PERFORMED BY:[place] [address] [place], [place] [phone] MEDICAL DIRECTORDEAN MCWILLIAMS M.D. Performed By: #### G LULS ####Point of Care testing, Glucose [Mass/Vol] 103 mg/dL Normal [facility] Comment on above: Result Comment: [place] om Glucose Reference Range is dependent on time and content of last meal. Glucose of more than 200 mg/dL in a nonstressed, ambulatory subject supports the diagnosis of Diabetes Mellitus.PERFORMED BY:[place] [address] [place], [place] [phone] MEDICAL DIRECTORDEAN MCWILLIAMS M.D. Performed By: #### G LULS ####Point of Care testing, Commemt1 Glu2: Cleaned Meter Normal [facility] Comment on above: Result Comment: PERF ORMED BY:[place] [address] [place] [place], [place] [phone] MEDICAL DIRECTORDEAN MCWILLIAMS M.D. Performed By: #### G LULS ####Point of Care testing, Glucose [Mass/Vol] 121 mg/dL Normal [facility] Comment on above: Result Comment: [place] om Glucose Reference Range is dependent on time and content of last meal. Glucose of more than 200 mg/dL in a nonstressed, ambulatory subject supports the diagnosis of Diabetes Mellitus. Performed By: #### G LULS ####Point of Care testing, Glucose [Mass/Vol] 120 mg/dL Normal [facility] Comment on above: Result Comment: [place] om Glucose Reference Range is dependent on time and content of last meal. Glucose of more than 200 mg/dL in a nonstressed, ambulatory subject supports the diagnosis of Diabetes Mellitus.PERFORMED BY:[place] [address] [address] [place], [place] [phone] MEDICAL JAKE MCWILLIAMS M.D. Performed By: #### G LULS ####Point of Care testing, Gram stain for investigation of transfusion reactionOrdered By: Felisa Win on 06-25-2023 Microscopic observation Gram stain Nom (Unsp spec) Corynebacterium striatum group Abnormal [facility] Microscopic observation Gram stain Nom (Unsp spec) Methicillin Resis Staph Aureus Abnormal [facility] Raghu 06-25-2023 L Normal [facility] Magnesiumon 06-25-2023 Magnesium [Mass/Vol] 1.9 mg/dL Normal 1.9-2.7 [facility] Comment on above: Result Comment: PERF ORMED BY:[address], [place] [phone] MEDICAL DIRECTORDEAN MCWILLIAMS M.D. Performed By: #### Ezekiel Lewis CBC, BMP ####[place] [id number] [facility] Basic Metabolic Panelon 06-11 Anion gap [Moles/Vol] 15.1 mmol/L High 6.0-15.0 [facility] Comment on above: Performed By: #### Ezekiel Lewis BMP, CBC ####[place] [id number] [facility] Calcium [Mass/Vol] 9.0 mg/dL Normal 8.6-10.3 [facility] Comment on above: Performed By: #### Ezekiel Lewis BMP, CBC ####[place] [id number] [facility] Chloride [Moles/Vol] 93 mmol/L Low 98-107 [facility] Comment on above: Performed By: #### Ezekiel Lewis BMP, CBC ####[place] [id number] [facility] CO2 [Moles/Vol] 29.0 mmol/L Normal 21.0-31.0 [facility] Comment on above: Performed By: #### zEekiel Lewis BMP, CBC ####[place] [id number] [facility] Creatinine [Mass/Vol] 9.61 mg/dL Significan t change up 0.70-1.30 [facility] Comment on above: Performed By: #### Ezekiel Lewis BMP, CBC ####[place] [address] Creatinine Clr Calc Pharmacy 8.55 Normal [facility] Comment on above: Performed By: #### SIGIFREDO Bae, CBC ####[place] [id number] [facility] GFR/1.73 sq M.predicted MDRD (S/P/Bld) [Vol rate/Area] 5.459 mL/min/{1.73_m2} Normal [facility] Comment on above: Performed By: #### SIGIFREDO Bae, CBC ####[address] Glucose [Mass/Vol] 66 mg/dL Significant change down 70-100 [facility] Comment on above: Result Comment: [facility] Glucose Reference Range is dependent on time and content of last meal. Glucose of more than 200 mg/dL in a nonstressed, ambulatory subject supports the diagnosis of Diabetes Mellitus. ADA recommended reference range Performed By: #### SIGIFREDO Bae, CBC ####[address] Potassium [Moles/Vol] 4.1 mmol/L Normal 3.5-5.1 [facility] Comment on above: Performed By: #### SIGIFREDO Bae, CBC ####[address] Sodium [Moles/Vol] 133 mmol/L Significant change down 136-145 [facility] Comment on above: Performed By: #### SIGIFREDO Bae, CBC ####[place] [id number] [facility] Urea nitrogen [Mass/Vol] 42 mg/dL High 7-25 [facility] Comment on above: Performed By: #### SIGIFREDO Bae, CBC ####[address] Complete Blood Count Auto Di ffon 06-24-2023 Basophils (Bld) [#/Vol] 0.0 10*3/uL Normal 0.0-0.2 [facility] Comment on above: Result Comment: PERF ORMED BY:[address] [place], [place] [phone] MEDICAL DIRECTORDEAN MCWILLIAMS M.D. Performed By: #### M SIGIFREDO Lewis, CBC ####[address] Basophils/100 WBC (Bld) 0.7 % Normal . [facility] Comment on above: Performed By: #### SIGIFREDO Bae, CBC ####[address] Eosinophils (Bld) [#/Vol] 0.2 10*3/uL Normal 0.0-0.45 [facility] Comment on above: Performed By: #### SIGIFREDO Bae, CBC ####[address] Eosinophils/100 WBC (Bld) 3.4 % Normal . [facility] Comment on above: Performed By: #### SIGIFREDO Bae, CBC ####[address] Erythrocyte distribution width (RBC) [Ratio] 15.3 % High 12.0-14.8 [facility] Comment on above: Performed By: #### SIGIFREDO Bae, CBC ####[address] Hematocrit (Bld) [Volume fraction] 28.9 % Low 38.8-50.0 [facility] Comment on above: Performed By: #### SIGIFREDO Bae, CBC ####[address] Hemoglobin (Bld) [Mass/Vol] 9.7 g/dL Low 13.0-17.0 [facility] Comment on above: Performed By: #### SIGIFREDO Bae, CBC ####[address] Lymphocytes (Bld) [#/Vol] 1.1 10*3/uL Normal 1.00-4.8 [facility] Comment on above: Performed By: #### M G, BMP, CBC ####[address] Lymphocytes/100 WBC (Bld) 17.4 % Normal . [facility] Comment on above: Performed By: #### M G, BMP, CBC ####[place] [id number] [facility] MCH (RBC) [Entitic mass] 29.2 pg Normal 27.5-35.2 [facility] Comment on above: Performed By: #### M G, BMP, CBC ####[address] MCV (RBC) [Entitic vol] 86.8 fL Normal 83.5-101 [facility] Comment on above: Performed By: #### Ezekiel Lewis, BMP, CBC ####[address] Mean Corpuscular HGB Conc 33.6 g/dL Normal 32.5-35.6 [facility] Comment on above: Performed By: #### Ezekiel Lewis, BMP, CBC ####[address] Monocytes (Bld) [#/Vol] 1.4 10*3/uL High 0.0-0.8 [facility] Comment on above: Performed By: #### Ezekiel Lewis, BMP, CBC ####[place] [id number] [facility] Monocytes/100 WBC (Bld) 22.5 % Normal . [facility] Comment on above: Performed By: #### Ezekiel G, BMP, CBC ####[place] [id number] [facility] Neutrophils (Bld) [#/Vol] 3.6 10*3/uL Normal 1.8-7.7 [facility] Comment on above: Performed By: #### Ezekiel G, BMP, CBC ####[place] [id number] [facility] Neutrophils/100 WBC (Bld) 56.0 % Normal . [facility] Comment on above: Performed By: #### M Debbie BMP, CBC ####[place] [id number] [facility] NRBC% 0.1 /100{WBC} Normal 0-0.5 [facility] Comment on above: Performed By: #### Ezekiel Lewis BMP, CBC ####[place] [id number] [facility] Platelet mean volume (Bld) [Entitic vol] 7.6 fL Normal 6.6-10.1 [facility] Comment on above: Performed By: #### Ezekiel Lewis BMP, CBC ####[address] Platelets (Bld) [#/Vol] 270 10*3/uL Normal 150-450 [facility] Comment on above: Performed By: #### Ezekiel Lewis BMP, CBC ####[address] RBC (Bld) [#/Vol] 3.33 10*6/uL Low 3.90-5.60 [facility] Comment on above: Performed By: #### SIGIFREDO Bae, CBC ####[place] [id number] [facility] WBC (Bld) [#/Vol] 6.4 10*3/uL Normal 4.1-10.5 [facility] Comment on above: Performed By: #### SIGIFREDO Bae, CBC ####[place] [id number] [facility] ECH echo transthoracicon ECH echo transthoracic Normal Th e [facility] Glucose Poct Glucometerson 0 06-24-2023 Glucose [Mass/Vol] 161 mg/dL Normal [facility] Comment on above: Result Comment: [facility] Glucose Reference Range is dependent on time and content of last meal. Glucose of more than 200 mg/dL in a nonstressed, ambulatory subject supports the diagnosis of Diabetes Mellitus.PERFORMED BY:[address] [place], [place] [id number] MEDICAL DIRECTORDEAN SUN M.D. Performed By: #### G LULS ####Point of Care testing, Commemt1 Glu2: Cleaned Meter Normal [facility] Comment on above: Result Comment: PERF ORMED BY:[place] [address] [address] RODRIGUEZNikkyADEMAINE, [place] [id number] MEDICAL JAKE MCWILLIAMS M.D. Performed By: #### G LULS ####Point of Care testing, Glucose [Mass/Vol] 279 mg/dL Normal [facility] Comment on above: Result Comment: [place] om Glucose Reference Range is dependent on time and content of last meal. Glucose of more than 200 mg/dL in a nonstressed, ambulatory subject supports the diagnosis of Diabetes Mellitus. Performed By: #### G LULS ####Point of Care testing, Glucose [Mass/Vol] 151 mg/dL Normal [facility] Comment on above: Result Comment: [place] om Glucose Reference Range is dependent on time and content of last meal. Glucose of more than 200 mg/dL in a nonstressed, ambulatory subject supports the diagnosis of Diabetes Mellitus.PERFORMED BY:[place] [address] [address] ZAVALAElodiaADE, [place] [phone] MEDICAL JAKE MCWILLIAMS M.D. Performed By: #### G LULS ####Point of Care testing, Glucose [Mass/Vol] 73 mg/dL Normal [facility] Comment on above: Result Comment: [place] om Glucose Reference Range is dependent on time and content of last meal. Glucose of more than 200 mg/dL in a nonstressed, ambulatory subject supports the diagnosis of Diabetes Mellitus.PERFORMED BY:[place] [address] [address] ZAVALAElodiaADEMAINE, [place] [phone] MEDICAL JAKE MCWILLIAMS M.D. Performed By: #### G LULS ####Point of Care testing, Magnesiumon 06-24-2023 Magnesium [Mass/Vol] 2.2 mg/dL Normal 1.9-2.7 [facility] Comment on above: Result Comment: PERF ORMED BY:[place] [address] [place], [place] [phone] MEDICAL DIRECTORDEAN MCWILLIAMS M.D. Performed By: #### M G, BMP, CBC ####[place] [address] [place] [id number] [facility] Anisocytosis [Presence] in B lood by Light microscopyOrdered By: Gabriel Gould on 06-23-2023 Anisocytosis Ql (Bld) Slight Normal [facility] Comment on above: Performed By: #### D IFF CBC, MG, BMP ####[place] [id number] [place] [phone] [facility] Bacterial blood cultureOrder ed By: Mary Ruffin on 06-23-2023 Bacteria identified Cx Nom (Bld) NO GROWTH 5 DAYS [facility] Bacteria identified Cx Nom (Bld) NO GROWTH 5 DAYS [facility] Basic Metabolic Panelon 06-11 Anion gap [Moles/Vol] 13.5 mmol/L Normal 6.0-15.0 [facility] Comment on above: Performed By: #### D IFF CBC, MG, BMP ####[place] [address] [place] [id number] [facility] Calcium [Mass/Vol] 8.8 mg/dL Normal 8.6-10.3 [facility] Comment on above: Performed By: #### D IFF CBC, MG, BMP ####[place] [address] [place] [address] [facility] Chloride [Moles/Vol] 90 mmol/L Low 98-107 [facility] Comment on above: Performed By: #### D IFF CBC, MG, BMP ####[place] [address] [place] [address] [facility] CO2 [Moles/Vol] 27.2 mmol/L Normal 21.0-31.0 [facility] Comment on above: Performed By: #### D IFF CBC, MG, BMP ####[place] [address] [place] [address] [facility] Creatinine [Mass/Vol] 7.95 mg/dL Significan t change up 0.70-1.30 [facility] Comment on above: Performed By: #### D IFF CBC, MG, BMP ####[facility] [place] [address] [facility] Creatinine Clr Calc Pharmacy 10.35 Normal [facility] Comment on above: Performed By: #### D IFF CBC, MG, BMP ####[place] [address] [place] [address] [place] GFR/1.73 sq M.predicted MDRD (S/P/Bld) [Vol rate/Area] 6.854 mL/min/{1.73_m2} Normal [facility] Comment on above: Performed By: #### D IFF CBC, MG, BMP ####[place] [address] Glucose [Mass/Vol] 181 mg/dL High 70-100 [facility] Comment on above: Result Comment: [place] Glucose Reference Range is dependent on time and content of last meal. Glucose of more than 200 mg/dL in a nonstressed, ambulatory subject supports the diagnosis of Diabetes Mellitus. ADA recommended reference range Performed By: #### D IFF CBC, MG, BMP ####[place] [address] [place] [phone] [facility] Potassium [Moles/Vol] 3.7 mmol/L Normal 3.5-5.1 [facility] Comment on above: Performed By: #### D IFF CBC, MG, BMP ####[place] [id number] [facility] Sodium [Moles/Vol] 127 mmol/L Low 136-145 [facility] Comment on above: Performed By: #### D IFF CBC, MG, BMP ####[place] [address] [place] [address] [facility] Urea nitrogen [Mass/Vol] 34 mg/dL High 7-25 [facility] Comment on above: Performed By: #### D IFF CBC, MG, BMP ####[facility] [place] [address] [place] Basophils/100 leukocytes in Blood by Manual countOrdered By: Gabriel Gould on 06-23-2023 Basophils/100 WBC (Bld) 1 % Normal 0-2 [facility] Comment on above: Performed By: #### D IFF CBC, MG, BMP ####[place] [id number] [facility] Blood Cultureon 06-23-2023 Bacteria identified Cx Nom (Bld) NO GROWTH 5 DAYS PERFORMED BY: [place] [address] PATHOLOGIST MEDICAL ECONOMICS CONSULTANT DEAN MCWILLIAMS M.D. Normal [facility] Comment on above: Performed By: #### C UBLD ####[address] Bacteria identified Cx Nom (Bld) NO GROWTH 5 DAYS PERFORMED BY: [place] [address] PATHOLOGIST MEDICAL ECONOMICS CONSULTANT DEAN MCWILLIAMS M.D. Normal [facility] Comment on above: Performed By: #### C UBLD ####[address] [place] cells [Presence] in Blo od by Light microscopyOrdered By: Gabriel Gould on 06-23-2023 [place] cells LM Ql (Bld) Slight Fi [place] Diff and CBCon 06-23-2023 Crenated RBC Slight Normal [facility] Comment on above: Performed By: #### D IFF CBC, MG, BMP ####[address] Erythrocyte distribution width (RBC) [Ratio] 15.4 % High 12.0-14.8 [facility] Comment on above: Performed By: #### D IFF CBC, MG, BMP ####[address] Hematocrit (Bld) [Volume fraction] 29.3 % Low 38.8-50.0 [facility] Comment on above: Performed By: #### D IFF CBC, MG, BMP ####[address] Hemoglobin (Bld) [Mass/Vol] 9.8 g/dL Low 13.0-17.0 [facility] Comment on above: Performed By: #### D IFF CBC, MG, BMP ####[address] MCH (RBC) [Entitic mass] 29.4 pg Normal 27.5-35.2 [facility] Comment on above: Performed By: #### D IFF CBC, MG, BMP ####[address] MCV (RBC) [Entitic vol] 87.8 fL Normal 83.5-101 [facility] Comment on above: Performed By: #### D IFF CBC, MG, BMP ####[address] Mean Corpuscular HGB Conc 33.5 g/dL Normal 32.5-35.6 [facility] Comment on above: Performed By: #### D IFF CBC, MG, BMP ####[address] Metamyelocytes 1 % High 0-0 [facility] Comment on above: Performed By: #### D IFF CBC, MG, BMP ####[address] Myelocytes 1 % High 0-0 [facility] Comment on above: Performed By: #### D IFF CBC, MG, BMP ####[address] Platelet Estimate Normal Normal Normal [facility] Comment on above: Performed By: #### D IFF CBC, MG, BMP ####[address] Platelet mean volume (Bld) [Entitic vol] 7.8 fL Normal 6.6-10.1 [facility] Comment on above: Performed By: #### D IFF CBC, MG, BMP ####[address] Platelet Morphology Normal Normal Normal [facility] Comment on above: Result Comment: PERF ORMED BY:[address] [place], [place] [phone] MEDICAL DIRECTORDEAN MCWILLIAMS M.D. Performed By: #### D IFF CBC, MG, BMP ####[place] [address] [place] [address] [facility] Platelets (Bld) [#/Vol] 277 10*3/uL Normal 150-450 [facility] Comment on above: Performed By: #### D IFF CBC, MG, BMP ####[place] [address] [place] [address] [facility] Polychromasia Slight Normal [facility] Comment on above: Performed By: #### D IFF CBC, MG, BMP ####[address] [address] [facility] RBC (Bld) [#/Vol] 3.34 10*6/uL Low 3.90-5.60 [facility] Comment on above: Performed By: #### D IFF CBC, MG, BMP ####[place] [address] [place] [address] [facility] WBC (Bld) [#/Vol] 5.6 10*3/uL Normal 4.1-10.5 [facility] Comment on above: Performed By: #### D IFF CBC, MG, BMP ####[address] [address] [facility] ECG 12 lead ECGon 06-23-2023 ECG 12 lead ECG Normal [facility] Eosinophils/100 leukocytes i n Blood by Manual countOrdered By: Gabriel Gould on 06-23-2023 Eosinophils/100 WBC (Bld) 3 % Normal 1-3 [facility] Comment on above: Performed By: #### D IFF CBC, MG, BMP ####[facility] [place] [address] [facility] Glucose Poct Glucometerson 0 06-23-2023 Glucose [Mass/Vol] 295 mg/dL Normal [facility] Comment on above: Result Comment: [place] Glucose Reference Range is dependent on time and content of last meal. Glucose of more than 200 mg/dL in a nonstressed, ambulatory subject supports the diagnosis of Diabetes Mellitus.PERFORMED BY:[place] [address] [address] JENNIFERBensonElodiaADEMA[place], [place] [phone] MEDICAL DIRECTORDEAN MCWILLIAMS M.D. Performed By: #### G LULS ####Point of Care testing, Glucose [Mass/Vol] 107 mg/dL Normal [facility] Comment on above: Result Comment: [facility] Glucose Reference Range is dependent on time and content of last meal. Glucose of more than 200 mg/dL in a nonstressed, ambulatory subject supports the diagnosis of Diabetes Mellitus.PERFORMED BY:[address] ZAVALAElodiaADE, [place] [phone] MEDICAL DIRECTORDEAN MCWILLIAMS M.D. Performed By: #### G LULS ####Point of Care testing, Glucose [Mass/Vol] 265 mg/dL Normal [facility] Comment on above: Result Comment: [facility] Glucose Reference Range is dependent on time and content of last meal. Glucose of more than 200 mg/dL in a nonstressed, ambulatory subject supports the diagnosis of Diabetes Mellitus.PERFORMED BY:[place] [address] [address] ZAVALAElodiaADEMA[place], [place] [phone] MEDICAL JAKE MCWILLIAMS M.D. Performed By: #### G LULS ####Point of Care testing, Glucose [Mass/Vol] 173 mg/dL Normal [facility] Comment on above: Result Comment: [facility] Glucose Reference Range is dependent on time and content of last meal. Glucose of more than 200 mg/dL in a nonstressed, ambulatory subject supports the diagnosis of Diabetes Mellitus.PERFORMED BY:[address] ZAVALAElodiaADEMAINE, [place] [phone] MEDICAL JAKE MCWILLIAMS M.D. Performed By: #### G LULS ####Point of Care testing, Lymphocytes/100 leukocytes i n Blood by Manual countOrdered By: Gabriel Gould on 06-23-2023 Lymphocytes/100 WBC (Bld) 15 % Low 18-42 [facility] Comment on above: Performed By: #### D IFF CBC, MG, BMP ####[place] [address] [place] [phone] [facility] Magnesiumon 06-23-2023 Magnesium [Mass/Vol] 2.1 mg/dL Normal 1.9-2.7 [facility] Comment on above: Result Comment: PERF ORMED BY:[address] [place], [place] [phone] MEDICAL DIRECTORDEAN MCWILLIAMS M.D. Performed By: #### D IFF CBC, MG, BMP ####[place] [address] [place] [phone] [facility] Manual blood segmented neutr ophils/100 leukocytesOrdered By: Gabriel Gould on 06-23-2023 Segmented neutrophils/100 WBC (Bld) 65 % Normal 50-70 [facility] Comment on above: Performed By: #### D IFF CBC, MG, BMP ####[address] [address] [facility] Metamyelocytes/100 WBC Manua l cnt (Bld)Ordered By: Gabriel Gould on 06-23-2023 Metamyelocytes/100 WBC (Bld) 1 % High 0-0 [facility] Monocytes/100 leukocytes in Blood by Manual countOrdered By: Gabriel Gould on 06-23-2023 Monocytes/100 WBC (Bld) 15 % High 2-11 [facility] Comment on above: Performed By: #### D IFF CBC, MG, BMP ####[place] [id number] [facility] Myelocytes/100 WBC Manual cn t (Bld)Ordered By: Gabriel Gould on 06-23-2023 Myelocytes/100 WBC (Bld) 1 % High 0-0 [facility] Platelet adequacy [Presence] in Blood by Light microscopyOrdered By: Gabriel Gould on 06-23-2023 Platelets LM Ql (Bld) Normal Normal [facility] Platelet morphology finding [Identifier] in BloodOrdered By: Gabriel Gould on 06-23-2023 Platelet morphology finding Nom (Bld) Normal Normal [facility] Polychromasia [Presence] in Blood by Light microscopyOrdered By: Gabriel Gould on 06-23-2023 Polychromasia LM Ql (Bld) Slight [facility] RBC morphologyOrdered By: Wood Gould on 06-23-2023 RBC morphology finding Nom (Bld) N/A [facility] Bacteria identified Aer cx N om (Unsp spec)Ordered By: Roney Aparicio on 06-22-2023 Superficial Wound Culture Methicillin Resis Staph Aureus Abnormal [facility] Basic Metabolic Panelon 06-11 Anion gap [Moles/Vol] 11.2 mmol/L Normal 6.0-15.0 [facility] Comment on above: Performed By: #### C BC, MG, BMP ####[place] [address] [place] [phone] [facility] Calcium [Mass/Vol] 8.9 mg/dL Normal 8.6-10.3 [facility] Comment on above: Performed By: #### C BC, MG, BMP ####[place] [address] [place] [phone] [facility] Chloride [Moles/Vol] 93 mmol/L Low 98-107 [facility] Comment on above: Performed By: #### C BC, MG, BMP ####[place] [address] [place] [address] [facility] CO2 [Moles/Vol] 30.6 mmol/L Normal 21.0-31.0 [facility] Comment on above: Performed By: #### C BC, MG, BMP ####[facility] [place] [address] [place] Creatinine [Mass/Vol] 5.87 mg/dL Significan t change up 0.70-1.30 [facility] Comment on above: Performed By: #### C BC, MG, BMP ####[facility] [place] [address] [place] Creatinine Clr Calc Pharmacy 14.01 Normal [facility] Comment on above: Performed By: #### C BC, MG, BMP ####[place] [phone] [facility] GFR/1.73 sq M.predicted MDRD (S/P/Bld) [Vol rate/Area] 9.864 mL/min/{1.73_m2} Normal [facility] Comment on above: Performed By: #### C BC, MG, BMP ####[address] Glucose [Mass/Vol] 268 mg/dL High 70-100 [facility] Comment on above: Result Comment: [facility] Glucose Reference Range is dependent on time and content of last meal. Glucose of more than 200 mg/dL in a nonstressed, ambulatory subject supports the diagnosis of Diabetes Mellitus. ADA recommended reference range Performed By: #### C BC, MG, BMP ####[place] [phone] [facility] Potassium [Moles/Vol] 3.8 mmol/L Normal 3.5-5.1 [facility] Comment on above: Performed By: #### C BC, MG, BMP ####[place] [id number] [facility] Sodium [Moles/Vol] 131 mmol/L Low 136-145 [facility] Comment on above: Performed By: #### C BC, MG, BMP ####[place] [id number] [facility] Urea nitrogen [Mass/Vol] 22 mg/dL Normal 7-25 [facility] Comment on above: Performed By: #### C BC, MG, BMP ####[place] [id number] [facility] Complete Blood Count Auto Di ffon 06-22-2023 Basophils (Bld) [#/Vol] 0.0 10*3/uL Normal 0.0-0.2 [facility] Comment on above: Result Comment: PERF ORMED BY:[address] [place], [place] [phone] MEDICAL DIRECTORDEAN MCWILLIAMS M.D. Performed By: #### C BC, MG, BMP ####[address] Basophils/100 WBC (Bld) 0.9 % Normal . [facility] Comment on above: Performed By: #### C BC, MG, BMP ####[address] Eosinophils (Bld) [#/Vol] 0.1 10*3/uL Normal 0.0-0.45 [facility] Comment on above: Performed By: #### C BC, MG, BMP ####[address] Eosinophils/100 WBC (Bld) 2.9 % Normal . [facility] Comment on above: Performed By: #### C BC, MG, BMP ####[address] Erythrocyte distribution width (RBC) [Ratio] 15.1 % High 12.0-14.8 [facility] Comment on above: Performed By: #### C BC, MG, BMP ####[address] Hematocrit (Bld) [Volume fraction] 29.5 % Low 38.8-50.0 [facility] Comment on above: Performed By: #### C BC, MG, BMP ####[address] Hemoglobin (Bld) [Mass/Vol] 9.7 g/dL Low 13.0-17.0 [facility] Comment on above: Performed By: #### C BC, MG, BMP ####[address] Lymphocytes (Bld) [#/Vol] 0.6 10*3/uL Low 1.00-4.8 [facility] Comment on above: Performed By: #### C BC, MG, BMP ####[address] Lymphocytes/100 WBC (Bld) 12.4 % Normal . [facility] Comment on above: Performed By: #### C BC, MG, BMP ####[address] MCH (RBC) [Entitic mass] 29.0 pg Normal 27.5-35.2 [facility] Comment on above: Performed By: #### C BC, MG, BMP ####[address] MCV (RBC) [Entitic vol] 88.4 fL Normal 83.5-101 [facility] Comment on above: Performed By: #### C BC, MG, BMP ####[address] Mean Corpuscular HGB Conc 32.8 g/dL Normal 32.5-35.6 [facility] Comment on above: Performed By: #### C BC, MG, BMP ####[address] Monocytes (Bld) [#/Vol] 1.5 10*3/uL High 0.0-0.8 [facility] Comment on above: Performed By: #### C BC, MG, BMP ####[address] Monocytes/100 WBC (Bld) 30.2 % Normal . [facility] Comment on above: Performed By: #### C BC, MG, BMP ####[address] Neutrophils (Bld) [#/Vol] 2.7 10*3/uL Normal 1.8-7.7 [facility] Comment on above: Performed By: #### C BC, MG, BMP ####[address] Neutrophils/100 WBC (Bld) 53.6 % Normal . [facility] Comment on above: Performed By: #### C BC, MG, BMP ####[address] NRBC% 0.2 /100{WBC} Normal 0-0.5 [facility] Comment on above: Performed By: #### C BC, MG, BMP ####[address] Platelet mean volume (Bld) [Entitic vol] 7.4 fL Normal 6.6-10.1 [facility] Comment on above: Performed By: #### C BC, MG, BMP ####[place] [id number] [facility] Platelets (Bld) [#/Vol] 236 10*3/uL Normal 150-450 [facility] Comment on above: Performed By: #### C BC, MG, BMP ####[address] RBC (Bld) [#/Vol] 3.34 10*6/uL Low 3.90-5.60 [facility] Comment on above: Performed By: #### C BC, MG, BMP ####[address] WBC (Bld) [#/Vol] 4.9 10*3/uL Normal 4.1-10.5 [facility] Comment on above: Performed By: #### C BC MG, BMP ####[place] [id number] [facility] Glucose Poct Glucometerson 0 - Glucose [Mass/Vol] 319 mg/dL Normal [facility] Comment on above: Result Comment: [facility] Glucose Reference Range is dependent on time and content of last meal. Glucose of more than 200 mg/dL in a nonstressed, ambulatory subject supports the diagnosis of Diabetes Mellitus.PERFORMED BY:[address] XAVIERMAINE, [place] [phone] MEDICAL DIRECTORDEAN MCWILLIAMS M.D. Performed By: #### G LUELLIS ####Point of Care testing, Commemt1 Glu2: Cleaned Meter Normal [facility] Comment on above: Result Comment: PERF ORMED BY:[address] [address] [place], [place] [phone] MEDICAL JAKE MCWILLIAMS M.D. Performed By: #### G LULS ####Point of Care testing, Glucose [Mass/Vol] 106 mg/dL Normal [facility] Comment on above: Result Comment: [place] om Glucose Reference Range is dependent on time and content of last meal. Glucose of more than 200 mg/dL in a nonstressed, ambulatory subject supports the diagnosis of Diabetes Mellitus. Performed By: #### G LULS ####Point of Care testing, Commemt1 Glu2: Cleaned Meter Normal [facility] Comment on above: Result Comment: PERF ORMED BY:[address] [place], [place] [phone] MEDICAL DIRECTORDEAN MCWILLIAMS M.D. Performed By: #### G LULS ####Point of Care testing, Glucose [Mass/Vol] 140 mg/dL Normal [facility] Comment on above: Result Comment: [place] om Glucose Reference Range is dependent on time and content of last meal. Glucose of more than 200 mg/dL in a nonstressed, ambulatory subject supports the diagnosis of Diabetes Mellitus. Performed By: #### G LULS ####Point of Care testing, Glucose [Mass/Vol] 260 mg/dL Normal [facility] Comment on above: Result Comment: [place] om Glucose Reference Range is dependent on time and content of last meal. Glucose of more than 200 mg/dL in a nonstressed, ambulatory subject supports the diagnosis of Diabetes Mellitus.PERFORMED BY:[address] [place], [place] [phone] MEDICAL JAKE MCWILLIAMS M.D. Performed By: #### G LULS ####Point of Care testing, Magnesiumon 06-22-2023 Magnesium [Mass/Vol] 2.1 mg/dL Normal 1.9-2.7 [facility] Comment on above: Result Comment: PERF ORMED BY:[address] [place], [place] [phone] MEDICAL JAKE MCWILLIAMS M.D. Performed By: #### C BC, MG, BMP ####[place] [id number] [facility] Superficial Wound Cultureon 06-22-2023 Superficial Wound Culture Normal [facility] Comment on above: Performed By: #### C USUP ####[place] [id number] [facility] Alanine aminotransferase [En zymatic activity/volume] in Serum or PlasmaOrdered By: Philip Chatman on 06-21-2023 ALT [Catalytic activity/Vol] 21 U/L Normal 7-52 [facility] Comment on above: Performed By: #### C BC, CUBLD, CMP, LACTIC, ESR, CRP ####[address] Albumin [Mass/volume] in Ser um or Plasma by Bromocresol green (BCG) dye binding methoOrdered By: Philip Chatman on 06-21-2023 Albumin BCG dye [Mass/Vol] 3.3 g/dL Low 3.5-5.7 [facility] Alkaline phosphatase [Enzyma tic activity/volume] in Serum or PlasmaOrdered By: Philip Chatman on 06-21-2023 ALP [Catalytic activity/Vol] 64 U/L Normal 34-104 [facility] Comment on above: Performed By: #### C BC, CUBLD, CMP, LACTIC, ESR, CRP ####[place] [id number] [facility] Aspartate aminotransferase [ Enzymatic activity/volume] in Serum or PlasmaOrdered By: Philip Chatman on 06-21-2023 AST [Catalytic activity/Vol] 35 U/L Normal 13-39 [facility] Comment on above: Performed By: #### C BC, CUBLD, CMP, LACTIC, ESR, CRP ####[address] Automated basophil %Ordered By: Philip Chatman on 06-21-2023 Basophils/100 WBC (Bld) 0.6 % Normal . [facility] Comment on above: Performed By: #### C BC, CUBLD, CMP, LACTIC, ESR, CRP ####[address] [place] [address] [place] Automated basophil countOrde red By: Philip Chatman on 06-21-2023 Basophils (Bld) [#/Vol] 0.0 10*3/uL Normal 0.0-0.2 [facility] Comment on above: Performed By: #### C BC, CUBLD, CMP, LACTIC, ESR, CRP ####[address] Automated blood monocyte cou ntOrdered By: Philip Chatman on 06-21-2023 Monocytes (Bld) [#/Vol] 1.2 10*3/uL High 0.0-0.8 [facility] Comment on above: Performed By: #### C BC, CUBLD, CMP, LACTIC, ESR, CRP ####[address] Automated eosinophil %Ordere d By: Philip Chatman on 06-21-2023 Eosinophils/100 WBC (Bld) 1.1 % Normal . [facility] Comment on above: Performed By: #### C BC, CUBLD, CMP, LACTIC, ESR, CRP ####[address] Automated eosinophil countOr dered By: Philip Chatman on 06-21-2023 Eosinophils (Bld) [#/Vol] 0.1 10*3/uL Normal 0.0-0.45 [facility] Comment on above: Performed By: #### C BC, CUBLD, CMP, LACTIC, ESR, CRP ####[address] Automated monocyte %Ordered By: Philip Chatman on 06-21-2023 Monocytes/100 WBC (Bld) 16.2 % Normal . [facility] Comment on above: Performed By: #### C BC, CUBLD, CMP, LACTIC, ESR, CRP ####[address] Automated neutrophil %Ordere d By: Philip Chatman on 06-21-2023 Neutrophils/100 WBC (Bld) 74.6 % Normal . [facility] Comment on above: Performed By: #### C BC, CUBLD, CMP, LACTIC, ESR, CRP ####[place] [id number] [facility] Bacterial blood cultureOrder ed By: Philip Chatman on 06-21-2023 Bacteria identified Cx Nom (Bld) Methicillin Resis Staph Aureus Abnormal [facility] Bilirubin.total [Mass/volume ] in Serum or PlasmaOrdered By: Philip Chatman on 06-21-2023 Bilirubin [Mass/Vol] 1.0 mg/dL Normal 0.3-1.0 [facility] Comment on above: Performed By: #### C BC, CUBLD, CMP, LACTIC, ESR, CRP ####[place] [id number] [facility] Blood Cultureon 06-21-2023 Bacteria identified Cx Nom (Bld) Normal [facility] Comment on above: Performed By: #### C BC, CUBLD, CMP, LACTIC, ESR, CRP ####[place] [id number] [facility] Bacteria identified Cx Nom (Bld) Normal [facility] Comment on above: Performed By: #### C BC, CUBLD, CMP, LACTIC, ESR, CRP ####[place] [id number] [facility] C reactive protein [Mass/vol ume] in Serum or PlasmaOrdered By: Philip Chatman on 06-21-2023 CRP [Mass/Vol] 25.6 mg/dL High 0.0-0.5 [facility] C-Reactive Proteinon 024 C-Reactive Protein 25.6 mg/dL High 0.0-0.5 [facility] Comment on above: Result Comment: PERF ORMED BY:[address] [place], [place] [phone] MEDICAL DIRECTORDEAN MCWILLIAMS M.D. Performed By: #### C BC, CUBLD, CMP, LACTIC, ESR, CRP ####[place] [id number] [facility] Calcium [Mass/volume] in Ser um or PlasmaOrdered By: Philip Chatman on 06-21-2023 Calcium [Mass/Vol] 9.4 mg/dL Normal 8.6-10.3 [facility] Comment on above: Performed By: #### C BC, CUBLD, CMP, LACTIC, ESR, CRP ####[address] Carbon dioxide, total [Moles /volume] in Serum or PlasmaOrdered By: Philip Chatman on 06-21-2023 CO2 [Moles/Vol] 30.6 mmol/L Normal 21.0-31.0 [facility] Comment on above: Performed By: #### C BC, CUBLD, CMP, LACTIC, ESR, CRP ####[address] Chloride [Moles/volume] in S bushra or PlasmaOrdered By: Philip Chatman on 06-21-2023 Chloride [Moles/Vol] 92 mmol/L Low 98-107 [facility] Comment on above: Performed By: #### C BC, CUBLD, CMP, LACTIC, ESR, CRP ####[address] Complete Blood Count Auto Di ffon 06-21-2023 Mean Corpuscular HGB Conc 33.5 g/dL Normal 32.5-35.6 [facility] Comment on above: Performed By: #### C BC, CUBLD, CMP, LACTIC, ESR, CRP ####[address] Monocytes/100 WBC (Bld) 24.17 % High 0.00-20.00 [facility] Comment on above: Result Comment: For adults in ED, MDW > 20.0 may be associated with a higher risk of sepsis during the first 12 hrs of hospital admission Performed By: #### C BC, CUBLD, CMP, LACTIC, ESR, CRP ####[place] [id number] [facility] NRBC% 0.1 /100{WBC} Normal 0-0.5 [facility] Comment on above: Performed By: #### C BC, CUBLD, CMP, LACTIC, ESR, CRP ####[address] [address] [facility] Comprehensive Metabolic Pane raghu 06-21-2023 Albumin [Mass/Vol] 3.3 g/dL Low 3.5-5.7 [facility] Comment on above: Performed By: #### C BC, CUBLD, CMP, LACTIC, ESR, CRP ####[place] [id number] [facility] Creatinine Clr Calc Pharmacy 18.34 Normal [facility] Comment on above: Performed By: #### C BC, CUBLD, CMP, LACTIC, ESR, CRP ####[address] GFR/1.73 sq M.predicted MDRD (S/P/Bld) [Vol rate/Area] 13.678 mL/min/{1.73_m2} Normal [facility] Comment on above: Performed By: #### C BC, CUBLD, CMP, LACTIC, ESR, CRP ####[place] [id number] [facility] Creatinine [Mass/volume] in Serum or PlasmaOrdered By: Philip Chatman on 06-21-2023 Creatinine [Mass/Vol] 4.47 mg/dL High 0.70-1.30 [facility] Comment on above: Performed By: #### C BC, CUBLD, CMP, LACTIC, ESR, CRP ####[place] [id number] [facility] Erythrocyte Sedimentation Ra kunal 06-21-2023 ESR (Bld) [Velocity] 97 mm/h High 0-19 [facility] Comment on above: Result Comment: PERF ORMED BY:[address] [place], [place] [phone] MEDICAL DIRECTORDEAN MCWILLIAMS M.D. Performed By: #### C BC, CUBLD, CMP, LACTIC, ESR, CRP ####[place] [id number] [facility] Erythrocyte distribution wid th [Ratio] by Automated countOrdered By: Philip Chatman on 06-21-2023 Erythrocyte distribution width (RBC) [Ratio] 15.3 % High 12.0-14.8 [facility] Comment on above: Performed By: #### C BC, CUBLD, CMP, LACTIC, ESR, CRP ####[id number] [facility] Erythrocyte sedimentation ra te by Photometric methodOrdered By: Philip Chatman on 06-21-2023 ESR Photometric method (Bld) [Velocity] 97 mm/hr High 0-19 [facility] Erythrocytes [#/volume] in B lood by Automated countOrdered By: Philip Chatman on 06-21-2023 RBC (Bld) [#/Vol] 3.83 10*6/uL Low 3.90-5.60 [facility] Comment on above: Performed By: #### C BC, CUBLD, CMP, LACTIC, ESR, CRP ####[facility] [place] [id number] [facility] Glucose Poct Glucometerson 0 06-21-2023 Glucose [Mass/Vol] 222 mg/dL Normal [facility] Comment on above: Result Comment: [facility] Glucose Reference Range is dependent on time and content of last meal. Glucose of more than 200 mg/dL in a nonstressed, ambulatory subject supports the diagnosis of Diabetes Mellitus.PERFORMED BY:[address] [place], [place] [phone] MEDICAL DIRECTORDEAN MCWILLIAMS M.D. Performed By: #### G DARLENE ####Point of Care testing, Glucose [Mass/volume] in Ser um or PlasmaOrdered By: Philip Chatman on 06-21-2023 Glucose [Mass/Vol] 178 mg/dL High 70-100 [facility] Comment on above: ADA recommended refe rence rangeRandom Glucose Reference Range is dependent on time and content of last meal. Glucose of more than 200 mg/dL in a nonstressed, ambulatory subject supports the diagnosis of Diabetes Mellitus. Result Comment: [place] Glucose Reference Range is dependent on time and content of last meal. Glucose of more than 200 mg/dL in a nonstressed, ambulatory subject supports the diagnosis of Diabetes Mellitus. ADA recommended reference range Performed By: #### C BC, CUBLD, CMP, LACTIC, ESR, CRP ####[address] [place] [address] [facility] Hematocrit [Volume Fraction] of Blood by Automated countOrdered By: Philip Chatman on 06-21-2023 Hematocrit (Bld) [Volume fraction] 33.5 % Low 38.8-50.0 [facility] Comment on above: Performed By: #### C BC, CUBLD, CMP, LACTIC, ESR, CRP ####[address] [place] [address] [facility] Hemoglobin [Mass/volume] in BloodOrdered By: Philip Chatman on 06-21-2023 Hemoglobin (Bld) [Mass/Vol] 11.2 g/dL Low 13.0-17.0 [facility] Comment on above: Performed By: #### C BC, CUBLD, CMP, LACTIC, ESR, CRP ####[address] [address] [facility] Lactate [Moles/volume] in Se rum or PlasmaOrdered By: Philip Chatman on 06-21-2023 Lactate [Moles/Vol] 2.5 mmol/L High 0.5-2.2 [facility] Comment on above: Critical Result : Ca lled to and read back by: RONALD JIN at: 06/22/2023 00:18:18 by:[id number] Lactate [Moles/Vol] 2.0 mmol/L Off scale high 0.5-2.2 [facility] Comment on above: Critical Result : Ca lled to and read back by: GRETEL DELGADO at: 06/21/2023 20:15:23 by:[id number] Result Comment: Crit ical Result : Called to and read back by: GRETEL DELGADO at: 06/21/2023 20:15:23 by:[id number] BY:[address] [place], [place] [phone] MEDICAL DIRECTORJIANLAN SUN M.D. Performed By: #### C BC, CUBLD, CMP, LACTIC, ESR, CRP ####[place] [id number] [facility] Lactic Acid Reflexon 024 Lactic Acid Reflex 2.5 mmol/L Off scale high 0.5-2.2 [facility] Comment on above: Result Comment: Crit ical Result : Called to and read back by: RONALD JIN at: 06/22/2023 00:18:18 by:[id number] BY:[address] [place], [place] [phone] MEDICAL DIRECTORDEAN MCWILILAMS M.D. Performed By: #### L ACTIC RFX ####[place] [id number] [facility] Leukocytes [#/volume] correc jennifer for nucleated erythrocytes in Blood by Automated counOrdered By: Philip Chatman on 06-21-2023 WBC corrected for nucl RBC Auto (Bld) [#/Vol] 7.3 10*3/uL 4.1-10.5 [facility] Leukocytes [#/volume] in Blo od by Automated countOrdered By: Philip Chatman on 06-21-2023 WBC (Bld) [#/Vol] 7.3 10*3/uL Normal 4.1-10.5 [facility] Comment on above: Performed By: #### C BC, CUBLD, CMP, LACTIC, ESR, CRP ####[place] [id number] [facility] Lymphocytes [#/volume] in Bl ood by Automated countOrdered By: Philip Chatman on 06-21-2023 Lymphocytes (Bld) [#/Vol] 0.5 10*3/uL Low 1.00-4.8 [facility] Comment on above: Performed By: #### C BC, CUBLD, CMP, LACTIC, ESR, CRP ####[place] [id number] [facility] Lymphocytes/100 leukocytes i n Blood by Automated countOrdered By: Philip Chatman on 06-21-2023 Lymphocytes/100 WBC (Bld) 7.5 % Normal . [facility] Comment on above: Performed By: #### C BC, CUBLD, CMP, LACTIC, ESR, CRP ####[address] MCH [Entitic mass] by Automa jennifer countOrdered By: Philip Chatman on 06-21-2023 MCH (RBC) [Entitic mass] 29.3 pg Normal 27.5-35.2 [facility] Comment on above: Performed By: #### C BC, CUBLD, CMP, LACTIC, ESR, CRP ####[address] MCHC Auto (RBC) [Mass/Vol]Or dered By: Philip Chatman on 06-21-2023 MCHC (RBC) [Mass/Vol] 33.5 g/dL 32.5-35.6 [facility] MCV [Entitic volume] by Auto mated countOrdered By: Philip Chatman on 06-21-2023 MCV (RBC) [Entitic vol] 87.4 fL Normal 83.5-101 [facility] Comment on above: Performed By: #### C BC, CUBLD, CMP, LACTIC, ESR, CRP ####[address] Monocyte distribution width [Entitic volume] in Blood by AutomatedOrdered By: Philip Chatman on 06-21-2023 Monocyte distribution width Auto (Bld) [Entitic vol] 24.17 % High 0.00-20.00 [facility] Comment on above: For adults in ED, MD W > 20.0 may be associated with a higher risk of sepsis during the first 12 hrs of hospital admission Neutrophils [#/volume] in Bl ood by Automated countOrdered By: Philip Chatman on 06-21-2023 Neutrophils (Bld) [#/Vol] 5.4 10*3/uL Normal 1.8-7.7 [facility] Comment on above: Performed By: #### C BC, CUBLD, CMP, LACTIC, ESR, CRP ####[address] No Panel InformationOrdered By: Philip Chatman on 06-21-2023 Bacterial ID (NA Multiplex Assay) Methicillin Resis Staph Aureus Abnormal [facility] Estimated GFR (CKD-EPI) 13.678 mL/Min [facility] Creatinine Clearance (Chem 18.34 [facility] Nucleated erythrocytes [Pres ence] in Blood by Automated countOrdered By: Philip Chatman on 06-21-2023 Nucleated RBC Auto Ql (Bld) 0.1 /100{WBC} 0-0.5 [facility] Platelet mean volume [Entiti c volume] in Blood by Automated countOrdered By: Philip Chatman on 06-21-2023 Platelet mean volume (Bld) [Entitic vol] 7.4 fL Normal 6.6-10.1 [facility] Comment on above: Performed By: #### C BC, CUBLD, CMP, LACTIC, ESR, CRP ####[address] [place] [address] [place] Platelets [#/volume] in Bloo d by Automated countOrdered By: Philip Chatman on 06-21-2023 Platelets (Bld) [#/Vol] 311 10*3/uL Normal 150-450 [facility] Comment on above: Performed By: #### C BC, CUBLD, CMP, LACTIC, ESR, CRP ####[address] [place] [address] [place] Potassium [Moles/volume] in Serum or PlasmaOrdered By: Philip Chatman on 06-21-2023 Potassium [Moles/Vol] 4.0 mmol/L Normal 3.5-5.1 [facility] Comment on above: Performed By: #### C BC, CUBLD, CMP, LACTIC, ESR, CRP ####[address] [address] [place] Protein [Mass/volume] in Ser um or PlasmaOrdered By: Philip Chatman on 06-21-2023 Protein [Mass/Vol] 8.3 g/dL Normal 6.4-8.9 [facility] Comment on above: Performed By: #### C BC, CUBLD, CMP, LACTIC, ESR, CRP ####[facility] [address] Serum globulin measurement b y calculation (mass/volume)Ordered By: Philip Chatman on 06-21-2023 Globulin (S) [Mass/Vol] 5.0 g/dL Normal [facility] Comment on above: Performed By: #### C BC, CUBLD, CMP, LACTIC, ESR, CRP ####[address] Serum or plasma albumin/glob ulin mass ratioOrdered By: Philip Chatman on 06-21-2023 Albumin/Globulin [Mass ratio] 0.7 {ratio} [facility] Comment on above: Performed By: #### C BC, CUBLD, CMP, LACTIC, ESR, CRP ####[address] Serum or plasma anion gap de terminationOrdered By: Philip Chatman on 06-21-2023 Anion gap [Moles/Vol] 13.4 mmol/L Normal 6.0-15.0 [facility] Comment on above: Performed By: #### C BC, CUBLD, CMP, LACTIC, ESR, CRP ####[address] Sodium [Moles/volume] in Ser um or PlasmaOrdered By: Philip Chatman on 06-21-2023 Sodium [Moles/Vol] 132 mmol/L Low 136-145 [facility] Comment on above: Performed By: #### C BC, CUBLD, CMP, LACTIC, ESR, CRP ####[address] US PVR Lower EXT Complete Bi [...] M.D. Transcribed by: JASPREET Technologist: TK Normal [facility] Urea nitrogen [Mass/volume] in Serum or PlasmaOrdered By: Philip Chatman on 06-21-2023 Urea nitrogen [Mass/Vol] 13 mg/dL Normal 09-04 [facility] Comment on above: Performed By: #### C BC, CUBLD, CMP, LACTIC, ESR, CRP ####[facility] [id number] [place] [id number] [facility] XR foot LT min 3V*on 024 XR foot LT min 3V* Normal [facility] Consent for Treatmenton Consent for Treatment [id number]#1.00TIFF Normal [facility] Physician Orderon 05-29-2023 Physician Order [id number]#1.00TIFF Normal [facility] Consent for Treatmenton 05-12 Consent for Treatment [id number]#1.00TIFF Normal [facility] Heart and Vascular Office/Cl inic Noteon [...] nonhealing. He had a PVR done in [facility]. 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 Normal [facility] Comment on above: Result Comment: Elec tronically Signed By: Dorian FISH, Greg Lopez\.br\Date and Time Signed: 05/27/23 09:41 EDT Outside Radiologyon 05-27-19 24 Outside Radiology [id number]#1.00TIFF [facility] Outside Radiology [id number]#1.00TIFF [facility] Physician Orderon 05-27-2023 Physician Order [id number]#1.00TIFF [facility] No Panel Informationon 04-22 C-Reactive Protein, Quantitative 2.85 mg/dL [facility] Basic Metabolic Panelon Creatinine Clr Calc Pharmacy 13.63 Normal [facility] Comment on above: Result Comment: PERF ORMED BY:[facility] [place] [phone] MEDICAL DIRECTORDEAN MCWILLIAMS M.D. Performed By: #### B MP ####[facility] [id number] [place] [address] [facility] GFR/1.73 sq M.predicted MDRD (S/P/Bld) [Vol rate/Area] 8.416 mL/min/{1.73_m2} Normal [facility] Comment on above: Performed By: #### B MP ####[address] [address] [facility] Calcium [Mass/volume] in Ser um or PlasmaOrdered By: Alon Santiago on 04-16-2023 Calcium [Mass/Vol] 9.0 mg/dL Normal 8.6-10.3 [facility] Comment on above: Performed By: #### B MP ####[address] [place] [address] [facility] Capillary blood glucose mike urement by glucometer (mass/volume)Ordered By: Alon Santiago on 04-16-2023 Glucose [Mass/Vol] 188 mg/dL Normal [facility] Comment on above: Random Glucose Refer ence Range is dependent on time and content of last meal. Glucose of more than 200 mg/dL in a nonstressed, ambulatory subject supports the diagnosis of Diabetes Mellitus. Result Comment: [place] Glucose Reference Range is dependent on time and content of last meal. Glucose of more than 200 mg/dL in a nonstressed, ambulatory subject supports the diagnosis of Diabetes Mellitus.PERFORMED BY:[address] [place] [place], [place] [phone] MEDICAL DIRECTORDEAN MCWILLIAMS M.D. Performed By: #### G DARLENE ####Point of Care testing, Carbon dioxide, total [Moles /volume] in Serum or PlasmaOrdered By: Alon Santiago on 04-16-2023 CO2 [Moles/Vol] 30.1 mmol/L Normal 21.0-31.0 [facility] Comment on above: Performed By: #### B MP ####[facility] [place] [address] [facility] Chloride [Moles/volume] in S bushra or PlasmaOrdered By: Alon Santiago on 04-16-2023 Chloride [Moles/Vol] 97 mmol/L Low 98-107 [facility] Comment on above: Performed By: #### B MP ####[facility] [place] [address] [facility] Creatinine [Mass/volume] in Serum or PlasmaOrdered By: Alno Santiago on 04-16-2023 Creatinine [Mass/Vol] 6.70 mg/dL Significan t change up 0.70-1.30 [facility] Comment on above: Delta: 10.23 on Performed By: #### B MP ####[facility] [place] [address] [facility] ECG 12 lead ECGon 04-16-2023 ECG 12 lead ECG Normal [facility] Glucose Poct Glucometerson 0 04-16-2023 Commemt1 Glu2: Cleaned Meter Normal [facility] Comment on above: Result Comment: PERF ORMED BY:[address] [place], [place] [phone] MEDICAL DIRECTORDEAN MCWILLIAMS M.D. Performed By: #### G DARLENE ####Point of Care testing, Glucose [Mass/Vol] 244 mg/dL Normal [facility] Comment on above: Result Comment: [facility] Glucose Reference Range is dependent on time and content of last meal. Glucose of more than 200 mg/dL in a nonstressed, ambulatory subject supports the diagnosis of Diabetes Mellitus. Performed By: #### G LULS ####Point of Care testing, Glucose [Mass/volume] in Ser um or PlasmaOrdered By: Alon Santiago on 04-16-2023 Glucose [Mass/Vol] 218 mg/dL Significant change up 70-100 [facility] Comment on above: Delta: 98 on ADA recommended reference rangeRandom Glucose Reference Range is dependent on time and content of last meal. Glucose of more than 200 mg/dL in a nonstressed, ambulatory subject supports the diagnosis of Diabetes Mellitus. Result Comment: [facility] Glucose Reference Range is dependent on time and content of last meal. Glucose of more than 200 mg/dL in a nonstressed, ambulatory subject supports the diagnosis of Diabetes Mellitus. ADA recommended reference range Performed By: #### B MP ####[place] [id number] No Panel InformationOrdered By: Alon Santiago on 04-16-2023 Estimated GFR (CKD-EPI) 8.416 mL/Min [facility] Creatinine Clearance (Chem 13.63 [facility] Bedside Glucose Comment Glu2: cleaned meter [facility] Potassium [Moles/volume] in Serum or PlasmaOrdered By: Oblandy Fregosor on 04-16-2023 Potassium [Moles/Vol] 5.4 mmol/L High 3.5-5.1 [facility] Comment on above: Performed By: #### B MP ####[address] Serum or plasma anion gap de terminationOrdered By: Alon Fregosor on 04-16-2023 Anion gap [Moles/Vol] 12.3 mmol/L Normal 6.0-15.0 [facility] Comment on above: Performed By: #### B MP ####[address] Sodium [Moles/volume] in Ser um or PlasmaOrdered By: Alon Fregosor on 04-16-2023 Sodium [Moles/Vol] 134 mmol/L Low 136-145 [facility] Comment on above: Performed By: #### B MP ####[place] [id number] [facility] Urea nitrogen [Mass/volume] in Serum or PlasmaOrdered By: Alon Fregosor on 04-16-2023 Urea nitrogen [Mass/Vol] 22 mg/dL Normal 7-25 [facility] Comment on above: Performed By: #### B MP ####[address] Activated partial thrombopla stin time (aPTT) in platelet poor plasma by coagulation aOrdered By: Alon Santiago on 03-04-2024 aPTT Coag (PPP) [Time] 28.3 s 25.1-36.5 [facility] Comment on above: A hematocrit value g reater than 55% may lead to inaccurate results in coagulation testing. Patients having hematocrit values >55% require a special collection tube for coagulation studies. Please contact the laboratory at [phone] for redraw instructions. Basic Metabolic Panelon Anion gap [Moles/Vol] 15.8 mmol/L High 6.0-15.0 [facility] Comment on above: Performed By: #### REBECCA Bae, BMP ####[place] [address] [place] [address] [facility] Calcium [Mass/Vol] 9.3 mg/dL Normal 8.6-10.3 [facility] Comment on above: Performed By: #### REBECCA Bae, BMP ####[address] [address] [facility] Chloride [Moles/Vol] 98 mmol/L Normal 98-107 [facility] Comment on above: Performed By: #### REBECCA Bae, BMP ####[address] [address] [facility] CO2 [Moles/Vol] 25.5 mmol/L Normal 21.0-31.0 [facility] Comment on above: Performed By: #### RAVEN BaeNO, BMP ####[address] [address] [facility] Creatinine [Mass/Vol] 10.23 mg/dL High 0.70-1.30 [facility] Comment on above: Performed By: #### RAVEN BaeNO, BMP ####[address] [address] [facility] Creatinine Clr Calc Pharmacy 8.89 Normal [facility] Comment on above: Performed By: #### Debbie CBCNO, BMP ####[address] [address] [place] GFR/1.73 sq M.predicted MDRD (S/P/Bld) [Vol rate/Area] 5.065 mL/min/{1.73_m2} Normal [facility] Comment on above: Performed By: #### REBECCA Bae, BMP ####[facility] [place] [address] [facility] Glucose [Mass/Vol] 98 mg/dL Normal 70-100 [facility] Comment on above: Result Comment: [place] Glucose Reference Range is dependent on time and content of last meal. Glucose of more than 200 mg/dL in a nonstressed, ambulatory subject supports the diagnosis of Diabetes Mellitus. ADA recommended reference range Performed By: #### REBECCA Bae, BMP ####[facility] [place] [address] [facility] Potassium [Moles/Vol] 5.3 mmol/L High 3.5-5.1 [facility] Comment on above: Performed By: #### REBECCA Bae, BMP ####[place] [address] [place] [address] [facility] Sodium [Moles/Vol] 134 mmol/L Low 136-145 [facility] Comment on above: Performed By: #### REBECCA Bae, BMP ####[place] [address] [place] [address] [facility] Urea nitrogen [Mass/Vol] 37 mg/dL High 7-25 [facility] Comment on above: Performed By: #### REBECCA Bae, BMP ####[place] [address] [place] [address] [place] C reactive protein [Mass/vol ume] in Serum or PlasmaOrdered By: Alfredo Acosta on 04-15-2023 CRP [Mass/Vol] 4.2 mg/dL 0.0-0.5 [facility] C-Reactive Proteinon 024 C-Reactive Protein 4.2 mg/dL High 0.0-0.5 [facility] Comment on above: Result Comment: PERF ORMED BY:[address] [place], [place] [phone] MEDICAL DIRECTORDEAN MCWILLIAMS M.D. Performed By: #### C RP ####[address] [address] [facility] Coagulation Profileon 2023 aPTT Coag (Bld) [Time] 28.3 s Normal 25.1-36.5 [facility] Comment on above: Result Comment: A he matocrit value greater than 55% may lead to inaccurate results in coagulation testing. Patients having hematocrit values >55% require a special collection tube for coagulation studies. Please contact the laboratory at [phone] for redraw instructions.PERFORMED BY:[place] [address] [place], [place] [phone] MEDICAL DIRECTORDEAN MCWILLIAMS M.D. Performed By: #### P P ####[place] [id number] [facility] Erythrocyte distribution wid th [Ratio] by Automated countOrdered By: Gabriel Gould on 04-15-2023 Erythrocyte distribution width (RBC) [Ratio] 15.4 % High 12.0-14.8 [facility] Comment on above: Performed By: #### M Debbie CBCNO, BMP ####[place] [id number] [facility] Erythrocytes [#/volume] in B lood by Automated countOrdered By: Gabriel Gould on 04-15-2023 RBC (Bld) [#/Vol] 3.20 10*6/uL Low 3.90-5.60 [facility] Comment on above: Performed By: #### M Debbie CBCNO, BMP ####[place] [id number] [facility] Glucose Poct Glucometerson 0 04-15-2023 Commemt1 Glu2: Cleaned Meter Normal [facility] Comment on above: Result Comment: PERF ORMED BY:[place] [address] [place], [place] [phone] MEDICAL DIRECTORDEAN MCWILLIAMS M.D. Performed By: #### G LULS ####Point of Care testing, Glucose [Mass/Vol] 224 mg/dL Normal [facility] Comment on above: Result Comment: [place] Glucose Reference Range is dependent on time and content of last meal. Glucose of more than 200 mg/dL in a nonstressed, ambulatory subject supports the diagnosis of Diabetes Mellitus. Performed By: #### G LULS ####Point of Care testing, Commemt1 Glu2: Cleaned Meter Normal [facility] Comment on above: Result Comment: PERF ORMED BY:[address] [place]odia[place], [place] [phone] MEDICAL DIRECTORDEAN MCWILLIAMS M.D. Performed By: #### G LULS ####Point of Care testing, Glucose [Mass/Vol] 197 mg/dL Normal [facility] Comment on above: Result Comment: [place] [facility] Glucose Reference Range is dependent on time and content of last meal. Glucose of more than 200 mg/dL in a nonstressed, ambulatory subject supports the diagnosis of Diabetes Mellitus. Performed By: #### G LULS ####Point of Care testing, Glucose [Mass/Vol] 101 mg/dL Normal [facility] Comment on above: Result Comment: [place] om Glucose Reference Range is dependent on time and content of last meal. Glucose of more than 200 mg/dL in a nonstressed, ambulatory subject supports the diagnosis of Diabetes Mellitus.PERFORMED BY:[address] JENNIFERBensonElodia[place], [place] [phone] MEDICAL DIRECTORDEAN MCWILLIAMS M.D. Performed By: #### G LULS ####Point of Care testing, Hematocrit [Volume Fraction] of Blood by Automated countOrdered By: Gabriel Gould on 04-15-2023 Hematocrit (Bld) [Volume fraction] 29.4 % Low 38.8-50.0 [facility] Comment on above: Performed By: #### REBECCA Bae, [facility] ####[address] [address] [facility] Hemoglobin [Mass/volume] in BloodOrdered By: Gabriel Gould on 04-15-2023 Hemoglobin (Bld) [Mass/Vol] 9.9 g/dL Low 13.0-17.0 [facility] Comment on above: Performed By: #### M REBECCA Lewis, BMP ####[facility] Hemogram CBC Without Diffon 04-15-2023 Mean Corpuscular HGB Conc 33.8 g/dL Normal 32.5-35.6 [facility] Comment on above: Performed By: #### M G, CBCNO, BMP ####[address] WBC (Bld) [#/Vol] 6.7 10*3/uL Normal 4.1-10.5 [facility] Comment on above: Performed By: #### M Debbie, CBCNO, BMP ####[address] INR in Platelet poor plasma by Coagulation assayOrdered By: Alon Santiago on 04-15-2023 INR Coag (PPP) [Relative time] 0.9 {INR} Normal [facility] Comment on above: INR Therapeutic Rang [...] - 4.5 Performed By: #### P P ####[address] Leukocytes [#/volume] correc jennifer for nucleated erythrocytes in Blood by Automated counOrdered By: Gabriel Gould on 04-15-2023 WBC corrected for nucl RBC Auto (Bld) [#/Vol] 6.7 10*3/uL 4.1-10.5 [facility] MCH [Entitic mass] by Automa jennifer countOrdered By: Gabriel Gould on 04-15-2023 MCH (RBC) [Entitic mass] 31.0 pg Normal 27.5-35.2 [facility] Comment on above: Performed By: #### M REBECCA Lewis, BMP ####[address] [address] [facility] MCHC Auto (RBC) [Mass/Vol]Or dered By: Gabriel Gould on 04-15-2023 MCHC (RBC) [Mass/Vol] 33.8 g/dL 32.5-35.6 [facility] MCV [Entitic volume] by Auto mated countOrdered By: Gabriel Gould on 04-15-2023 MCV (RBC) [Entitic vol] 91.8 fL Normal 83.5-101 [facility] Comment on above: Performed By: #### REBECCA Bae, BMP ####[place] [phone] [facility] Magnesium [Mass/volume] in S bushra or PlasmaOrdered By: Gabriel Gould on 04-15-2023 Magnesium [Mass/Vol] 2.2 mg/dL Normal 1.9-2.7 [facility] Comment on above: Result Comment: PERF ORMED BY:[place] [address] [place], [place] [phone] MEDICAL DIRECTORDEAN MCWILLIAMS M.D. Performed By: #### REBECCA Bae, BMP ####[address] [address] [facility] Platelet mean volume [Entiti c volume] in Blood by Automated countOrdered By: Gabriel Gould on 04-15-2023 Platelet mean volume (Bld) [Entitic vol] 7.6 fL Normal 6.6-10.1 [facility] Comment on above: Result Comment: PERF ORMED BY:[place] [address] [place], [place] [phone] MEDICAL DIRECTORDEAN MCWILLIAMS M.D. Performed By: #### M G, CBCNO, BMP ####[facility] [place] [address] [facility] Platelets [#/volume] in Bloo d by Automated countOrdered By: Gabriel Gould on 04-15-2023 Platelets (Bld) [#/Vol] 246 10*3/uL Normal 150-450 [facility] Comment on above: Performed By: #### M G, CBCNO, BMP ####[place] [address] [place] [id number] [facility] Prothrombin time (PT)Ordered By: Alon Santiago on 04-15-2023 PT Coag (PPP) [Time] 11.0 s Normal 9.0-12.9 [facility] Comment on above: A hematocrit value g reater than 55% may lead to inaccurate results in coagulation testing. Patients having hematocrit values >55% require a special collection tube for coagulation studies. Please contact the laboratory at [phone] for redraw instructions. Result Comment: A he matocrit value greater than 55% may lead to inaccurate results in coagulation testing. Patients having hematocrit values >55% require a special collection tube for coagulation studies. Please contact the laboratory at [phone] for redraw instructions. Performed By: #### P P ####[place] [id number] [facility] Glucose Poct Glucometerson 0 04-14-2023 Glucose [Mass/Vol] 201 mg/dL Normal [facility] Comment on above: Result Comment: [facility] Glucose Reference Range is dependent on time and content of last meal. Glucose of more than 200 mg/dL in a nonstressed, ambulatory subject supports the diagnosis of Diabetes Mellitus.PERFORMED BY:[address] [place], [place] [phone] MEDICAL DIRECTORDEAN MCWILLIAMS M.D. Performed By: #### G LULS ####Point of Care testing, Glucose [Mass/Vol] 182 mg/dL Normal [facility] Comment on above: Result Comment: [facility] Glucose Reference Range is dependent on time and content of last meal. Glucose of more than 200 mg/dL in a nonstressed, ambulatory subject supports the diagnosis of Diabetes Mellitus.PERFORMED BY:[place] [address] [place] [place], [place] [phone] MEDICAL DIRECTORDEAN MCWILLIAMS M.D. Performed By: #### G LULS ####Point of Care testing, Glucose [Mass/Vol] 267 mg/dL Normal [facility] Comment on above: Result Comment: [facility] Glucose Reference Range is dependent on time and content of last meal. Glucose of more than 200 mg/dL in a nonstressed, ambulatory subject supports the diagnosis of Diabetes Mellitus.PERFORMED BY:[place] [address] [place], [place] [phone] MEDICAL DIRECTORDEAN MCWILLIAMS M.D. Performed By: #### G LULS ####Point of Care testing, Glucose [Mass/Vol] 109 mg/dL Normal [facility] Comment on above: Result Comment: [facility] Glucose Reference Range is dependent on time and content of last meal. Glucose of more than 200 mg/dL in a nonstressed, ambulatory subject supports the diagnosis of Diabetes Mellitus.PERFORMED BY:[address] [place], [place] [phone] MEDICAL DIRECTORDEAN MCWILLIAMS M.D. Performed By: #### G LULS ####Point of Care testing, Basic Metabolic Panelon 03-0 Anion gap [Moles/Vol] 16.3 mmol/L High 6.0-15.0 [facility] Comment on above: Performed By: #### B MP, MG ####[address] [address] [facility] Calcium [Mass/Vol] 9.2 mg/dL Normal 8.6-10.3 [facility] Comment on above: Performed By: #### B MP, MG ####[address] [address] [facility] Chloride [Moles/Vol] 96 mmol/L Low 98-107 [facility] Comment on above: Performed By: #### B MP, MG ####[address] [place] [address] [place] CO2 [Moles/Vol] 27.5 mmol/L Normal 21.0-31.0 [facility] Comment on above: Performed By: #### B MP, MG ####[address] Creatinine [Mass/Vol] 6.49 mg/dL Significan t change up 0.70-1.30 [facility] Comment on above: Performed By: #### B MP, MG ####[address] Creatinine Clr Calc Pharmacy 13.69 Normal [facility] Comment on above: Performed By: #### B MP, MG ####[address] GFR/1.73 sq M.predicted MDRD (S/P/Bld) [Vol rate/Area] 8.744 mL/min/{1.73_m2} Normal [facility] Comment on above: Performed By: #### B MP, MG ####[address] Glucose [Mass/Vol] 120 mg/dL High 70-100 [facility] Comment on above: Result Comment: [place] Glucose Reference Range is dependent on time and content of last meal. Glucose of more than 200 mg/dL in a nonstressed, ambulatory subject supports the diagnosis of Diabetes Mellitus. ADA recommended reference range Performed By: #### B MP, MG ####[address] Potassium [Moles/Vol] 4.8 mmol/L Normal 3.5-5.1 [facility] Comment on above: Performed By: #### B MP, MG ####[address] Sodium [Moles/Vol] 135 mmol/L Low 136-145 [facility] Comment on above: Performed By: #### B MP, MG ####[address] Urea nitrogen [Mass/Vol] 22 mg/dL Normal 7-25 [facility] Comment on above: Performed By: #### B MP, MG ####[address] [address] [facility] ECG 12 lead ECGon 04-13-2023 ECG 12 lead ECG Normal [facility] Glucose Poct Glucometerson 0 04-13-2023 Glucose [Mass/Vol] 164 mg/dL Normal [facility] Comment on above: Result Comment: [place] Glucose Reference Range is dependent on time and content of last meal. Glucose of more than 200 mg/dL in a nonstressed, ambulatory subject supports the diagnosis of Diabetes Mellitus.PERFORMED BY:[address] [place], [place] [phone] MEDICAL DIRECTORDEAN MCWILLIAMS M.D. Performed By: #### G LULS ####Point of Care testing, Glucose [Mass/Vol] 254 mg/dL Normal [facility] Comment on above: Result Comment: [facility] Glucose Reference Range is dependent on time and content of last meal. Glucose of more than 200 mg/dL in a nonstressed, ambulatory subject supports the diagnosis of Diabetes Mellitus.PERFORMED BY:[address] [place], [place] [phone] MEDICAL DIRECTORDEAN MCWILLIAMS M.D. Performed By: #### G LULS ####Point of Care testing, Commemt1 Glu2: Cleaned Meter Normal [facility] Comment on above: Result Comment: PERF ORMED BY:[address] [place], [place] [phone] MEDICAL DIRECTORDEAN MCWILLIAMS M.D. Performed By: #### G LULS ####Point of Care testing, Glucose [Mass/Vol] 286 mg/dL Normal [facility] Comment on above: Result Comment: [place] Glucose Reference Range is dependent on time and content of last meal. Glucose of more than 200 mg/dL in a nonstressed, ambulatory subject supports the diagnosis of Diabetes Mellitus. Performed By: #### G LULS ####Point of Care testing, Glucose [Mass/Vol] 126 mg/dL Normal [facility] Comment on above: Result Comment: [facility] Glucose Reference Range is dependent on time and content of last meal. Glucose of more than 200 mg/dL in a nonstressed, ambulatory subject supports the diagnosis of Diabetes Mellitus.PERFORMED BY:[address] [place], [place] [phone] MEDICAL DIRECTORDEAN MCWILLIAMS M.D. Performed By: #### G DARLENE ####Point of Care testing, Hemogram CBC Without Diffon 04-13-2023 Erythrocyte distribution width (RBC) [Ratio] 15.2 % High 12.0-14.8 [facility] Comment on above: Performed By: #### C BCNO ####[address] Hematocrit (Bld) [Volume fraction] 29.7 % Low 38.8-50.0 [facility] Comment on above: Performed By: #### C BCNO ####[address] Hemoglobin (Bld) [Mass/Vol] 10.1 g/dL Low 13.0-17.0 [facility] Comment on above: Performed By: #### C BCNO ####[address] MCH (RBC) [Entitic mass] 31.0 pg Normal 27.5-35.2 [facility] Comment on above: Performed By: #### C BCNO ####[address] MCV (RBC) [Entitic vol] 91.4 fL Normal 83.5-101 [facility] Comment on above: Performed By: #### C BCNO ####[place] [id number] [facility] Mean Corpuscular HGB Conc 33.9 g/dL Normal 32.5-35.6 [facility] Comment on above: Performed By: #### C BCNO ####[place] [id number] [facility] Platelet mean volume (Bld) [Entitic vol] 7.9 fL Normal 6.6-10.1 [facility] Comment on above: Result Comment: PERF ORMED BY:[place] [address] [place] [phone] MEDICAL DIRECTORDEAN MCWILLIAMS M.D. Performed By: #### C BCNO ####[place] [id number] [facility] Platelets (Bld) [#/Vol] 249 10*3/uL Normal 150-450 [facility] Comment on above: Performed By: #### C BCNO ####[address] RBC (Bld) [#/Vol] 3.25 10*6/uL Low 3.90-5.60 [facility] Comment on above: Performed By: #### C BCNO ####[address] WBC (Bld) [#/Vol] 5.9 10*3/uL Normal 4.1-10.5 [facility] Comment on above: Performed By: #### C BCNO ####[address] Magnesiumon 04-13-2023 Magnesium [Mass/Vol] 1.8 mg/dL Low 1.9-2.7 [facility] Comment on above: Result Comment: PERF ORMED BY:[place] [address] [place] [phone] MEDICAL DIRECTORDEAN MCWILLIAMS M.D. Performed By: #### B MP, MG ####[address] Basic Metabolic Panelon 03-0 Anion gap [Moles/Vol] 17.0 mmol/L High 6.0-15.0 [facility] Comment on above: Performed By: #### M G, BMP ####[address] Calcium [Mass/Vol] 8.9 mg/dL Normal 8.6-10.3 [facility] Comment on above: Performed By: #### Ezekiel Lewis, BMP ####[address] Chloride [Moles/Vol] 95 mmol/L Low 98-107 [facility] Comment on above: Performed By: #### M Debbie, BMP ####[address] CO2 [Moles/Vol] 27.2 mmol/L Normal 21.0-31.0 [facility] Comment on above: Performed By: #### Ezekiel Lewis, BMP ####[address] Creatinine [Mass/Vol] 9.40 mg/dL Significan t change up 0.70-1.30 [facility] Comment on above: Performed By: #### Ezekiel Lewis, BMP ####[address] Creatinine Clr Calc Pharmacy 9.45 Normal [facility] Comment on above: Performed By: #### Ezekiel Lewis, BMP ####[address] GFR/1.73 sq M.predicted MDRD (S/P/Bld) [Vol rate/Area] 5.606 mL/min/{1.73_m2} Normal [facility] Comment on above: Performed By: #### Ezekiel Lewis, BMP ####[address] Glucose [Mass/Vol] 204 mg/dL Significant change up 70-100 [facility] Comment on above: Result Comment: [place] Glucose Reference Range is dependent on time and content of last meal. Glucose of more than 200 mg/dL in a nonstressed, ambulatory subject supports the diagnosis of Diabetes Mellitus. ADA recommended reference range Performed By: #### M G, BMP ####[address] Potassium [Moles/Vol] 5.2 mmol/L High 3.5-5.1 [facility] Comment on above: Performed By: #### M G, BMP ####[place] [id number] [facility] Sodium [Moles/Vol] 134 mmol/L Low 136-145 [facility] Comment on above: Performed By: #### M G, BMP ####[place] [address] [place] [id number] [facility] Urea nitrogen [Mass/Vol] 42 mg/dL High 7-25 [facility] Comment on above: Performed By: #### M Debbie, BMP ####[place] [address] [place] [id number] [facility] Clostridioides difficile tox in B tcdB gene [Presence] in Stool by IRENE with probe deteOrdered By: Gabriel Gould on 04-12-2023 C. difficile toxin B tcdB gene IRENE+probe Ql (Stl) Negative Negative [facility] Comment on above: Testing performed by RT-PCR Clostridium Difficileon 03-0 Clostridium Difficile Negative Normal Negative [facility] Comment on above: Order Comment: > or = to 3 loose/watery stools in the last 24 HRS? Y Is patient on promotility agents or tube feeding? N Result Comment: Test ing performed by RT-PCRPERFORMED BY:[place] [address] [address] [place], [place] [phone] MEDICAL DIRECTORDEAN MCWILLIAMS M.D. Performed By: #### C DT ####[place] [id number] [facility] Glucose Poct Glucometerson 0 04-12-2023 Glucose [Mass/Vol] 265 mg/dL Normal [facility] Comment on above: Result Comment: [place] Glucose Reference Range is dependent on time and content of last meal. Glucose of more than 200 mg/dL in a nonstressed, ambulatory subject supports the diagnosis of Diabetes Mellitus.PERFORMED BY:[address] [address] [address] [place], [place] [phone] MEDICAL DIRECTORDEAN MCWILLIAMS M.D. Performed By: #### G LULS ####Point of Care testing, Glucose [Mass/Vol] 207 mg/dL Normal [facility] Comment on above: Result Comment: [place] om Glucose Reference Range is dependent on time and content of last meal. Glucose of more than 200 mg/dL in a nonstressed, ambulatory subject supports the diagnosis of Diabetes Mellitus.PERFORMED BY:[address] [address] [address] [place], [place] [phone] MEDICAL DIRECTORDEAN MCWILLIAMS M.D. Performed By: #### G LULS ####Point of Care testing, Commemt1 Glu2: Cleaned Meter Normal [facility] Comment on above: Result Comment: PERF ORMED BY:[address] [address] [address] [place], [place] [phone] MEDICAL JAKE MCWILLIAMS M.D. Performed By: #### G LULS ####Point of Care testing, Glucose [Mass/Vol] 130 mg/dL Normal [facility] Comment on above: Result Comment: [place] om Glucose Reference Range is dependent on time and content of last meal. Glucose of more than 200 mg/dL in a nonstressed, ambulatory subject supports the diagnosis of Diabetes Mellitus. Performed By: #### G LULS ####Point of Care testing, Glucose [Mass/Vol] 129 mg/dL Normal [facility] Comment on above: Result Comment: [place] om Glucose Reference Range is dependent on time and content of last meal. Glucose of more than 200 mg/dL in a nonstressed, ambulatory subject supports the diagnosis of Diabetes Mellitus.PERFORMED BY:[place] [address] [address] [place], [place] [phone] MEDICAL JAKE MCWILLIAMS M.D. Performed By: #### G LULS ####Point of Care testing, Glucose [Mass/Vol] 224 mg/dL Normal [facility] Comment on above: Result Comment: [place] om Glucose Reference Range is dependent on time and content of last meal. Glucose of more than 200 mg/dL in a nonstressed, ambulatory subject supports the diagnosis of Diabetes Mellitus.PERFORMED BY:[address] [address] [address] [place], [place] [phone] MEDICAL JAKE MCWILLIAMS M.D. Performed By: #### G DARLENE ####Point of Care testing, Hemogram CBC Without Diffon 04-12-2023 Erythrocyte distribution width (RBC) [Ratio] 14.8 % Normal 12.0-14.8 [facility] Comment on above: Performed By: #### C BCNO ####[address] Hematocrit (Bld) [Volume fraction] 29.9 % Low 38.8-50.0 [facility] Comment on above: Performed By: #### C BCNO ####[address] Hemoglobin (Bld) [Mass/Vol] 10.1 g/dL Low 13.0-17.0 [facility] Comment on above: Performed By: #### C BCNO ####[address] MCH (RBC) [Entitic mass] 30.8 pg Normal 27.5-35.2 [facility] Comment on above: Performed By: #### C BCNO ####[address] MCV (RBC) [Entitic vol] 91.4 fL Normal 83.5-101 [facility] Comment on above: Performed By: #### C BCNO ####[place] [id number] [facility] Mean Corpuscular HGB Conc 33.7 g/dL Normal 32.5-35.6 [facility] Comment on above: Performed By: #### C BCNO ####[place] [id number] [facility] Platelet mean volume (Bld) [Entitic vol] 8.0 fL Normal 6.6-10.1 [facility] Comment on above: Result Comment: PERF ORMED BY:[place] [address] [place] [phone] MEDICAL DIRECTORDEAN MCWILLIAMS M.D. Performed By: #### C BCNO ####[place] [id number] [facility] Platelets (Bld) [#/Vol] 230 10*3/uL Normal 150-450 [facility] Comment on above: Performed By: #### C BCNO ####[address] RBC (Bld) [#/Vol] 3.27 10*6/uL Low 3.90-5.60 [facility] Comment on above: Performed By: #### C BCNO ####[place] [id number] [facility] WBC (Bld) [#/Vol] 6.6 10*3/uL Normal 4.1-10.5 [facility] Comment on above: Performed By: #### C BCNO ####[place] [id number] [facility] Magnesiumon 04-12-2023 Magnesium [Mass/Vol] 2.0 mg/dL Normal 1.9-2.7 [facility] Comment on above: Result Comment: PERF ORMED BY:[address] [address] [address] [place], [place] [phone] MEDICAL DIRECTORDEAN MCWILLIAMS M.D. Performed By: #### M G, BMP ####[place] [id number] [facility] Basic Metabolic Panelon 03-15 Anion gap [Moles/Vol] 16.4 mmol/L High 6.0-15.0 [facility] Comment on above: Performed By: #### B MP, MG ####[address] Calcium [Mass/Vol] 9.3 mg/dL Normal 8.6-10.3 [facility] Comment on above: Performed By: #### B MP, MG ####[address] Chloride [Moles/Vol] 96 mmol/L Low 98-107 [facility] Comment on above: Performed By: #### B MP, MG ####[address] CO2 [Moles/Vol] 29.6 mmol/L Normal 21.0-31.0 [facility] Comment on above: Performed By: #### B MP, MG ####[address] Creatinine [Mass/Vol] 7.14 mg/dL Significan t change up 0.70-1.30 [facility] Comment on above: Performed By: #### B MP, MG ####[address] Creatinine Clr Calc Pharmacy 12.48 Normal [facility] Comment on above: Performed By: #### B MP, MG ####[address] GFR/1.73 sq M.predicted MDRD (S/P/Bld) [Vol rate/Area] 7.798 mL/min/{1.73_m2} Normal [facility] Comment on above: Performed By: #### B MP, MG ####[address] Glucose [Mass/Vol] 64 mg/dL Low 70-100 [facility] Comment on above: Result Comment: [place] Glucose Reference Range is dependent on time and content of last meal. Glucose of more than 200 mg/dL in a nonstressed, ambulatory subject supports the diagnosis of Diabetes Mellitus. ADA recommended reference range Performed By: #### B MP, MG ####[address] Potassium [Moles/Vol] 5.0 mmol/L Normal 3.5-5.1 [facility] Comment on above: Performed By: #### B MP, MG ####[address] Sodium [Moles/Vol] 137 mmol/L Normal 136-145 [facility] Comment on above: Performed By: #### B MP, MG ####[address] [address] [facility] Urea nitrogen [Mass/Vol] 34 mg/dL High 7-25 [facility] Comment on above: Performed By: #### B MP, MG ####[facility] [place] [address] [facility] Glucose Poct Glucometerson 0 04-11-2023 Glucose [Mass/Vol] 389 mg/dL Normal [facility] Comment on above: Result Comment: [place] om Glucose Reference Range is dependent on time and content of last meal. Glucose of more than 200 mg/dL in a nonstressed, ambulatory subject supports the diagnosis of Diabetes Mellitus.PERFORMED BY:[address] [place], [place] [phone] MEDICAL DIRECTORDEAN MCWILLIAMS M.D. Performed By: #### G LULS ####Point of Care testing, Commemt1 Normal [facility] Comment on above: Result Comment: Glu2 : WILL NOTIFY DR/RN Performed By: #### G LULS ####Point of Care testing, Commemt2 Cleaned Meter Normal [facility] Comment on above: Result Comment: PERF ORMED BY:[address] [place], [place] [phone] MEDICAL DIRECTORDEAN MCWILLIAMS M.D. Performed By: #### G LULS ####Point of Care testing, Glucose [Mass/Vol] 457 mg/dL Off scale high [facility] Comment on above: Result Comment: [place] om Glucose Reference Range is dependent on time and content of last meal. Glucose of more than 200 mg/dL in a nonstressed, ambulatory subject supports the diagnosis of Diabetes Mellitus. Performed By: #### G LULS ####Point of Care testing, Glucose [Mass/Vol] 78 mg/dL Normal [facility] Comment on above: Result Comment: [place] om Glucose Reference Range is dependent on time and content of last meal. Glucose of more than 200 mg/dL in a nonstressed, ambulatory subject supports the diagnosis of Diabetes Mellitus.PERFORMED BY:[address] [place], [place] [phone] MEDICAL DIRECTORDEAN MCWILLIAMS M.D. Performed By: #### G DARLENE ####Point of Care testing, Hemogram CBC Without Diffon 04-11-2023 Erythrocyte distribution width (RBC) [Ratio] 15.2 % High 12.0-14.8 [facility] Comment on above: Performed By: #### C BCNO ####[place] [id number] [facility] Hematocrit (Bld) [Volume fraction] 32.3 % Low 38.8-50.0 [facility] Comment on above: Performed By: #### C BCNO ####[address] Hemoglobin (Bld) [Mass/Vol] 10.8 g/dL Low 13.0-17.0 [facility] Comment on above: Performed By: #### C BCNO ####[address] MCH (RBC) [Entitic mass] 30.6 pg Normal 27.5-35.2 [facility] Comment on above: Performed By: #### C BCNO ####[address] MCV (RBC) [Entitic vol] 91.5 fL Normal 83.5-101 [facility] Comment on above: Performed By: #### C BCNO ####[place] [id number] [facility] Mean Corpuscular HGB Conc 33.4 g/dL Normal 32.5-35.6 [facility] Comment on above: Performed By: #### C BCNO ####[place] [id number] [facility] Platelet mean volume (Bld) [Entitic vol] 8.3 fL Normal 6.6-10.1 [facility] Comment on above: Result Comment: PERF ORMED BY:[address]SON[address] [address] [phone] MEDICAL DIRECTORDEAN MCWILLIAMS M.D. Performed By: #### C BCNO ####[place] [address] [place] [address] [facility] Platelets (Bld) [#/Vol] 228 10*3/uL Normal 150-450 [facility] Comment on above: Performed By: #### C BCNO ####[place] [id number] [facility] RBC (Bld) [#/Vol] 3.53 10*6/uL Low 3.90-5.60 [facility] Comment on above: Performed By: #### C BCNO ####[place] [id number] [facility] WBC (Bld) [#/Vol] 7.0 10*3/uL Normal 4.1-10.5 [facility] Comment on above: Performed By: #### C BCNO ####[place] [id number] [facility] Magnesiumon 04-11-2023 Magnesium [Mass/Vol] 2.1 mg/dL Normal 1.9-2.7 [facility] Comment on above: Result Comment: PERF ORMED BY:[place] [address] [address] [place], [place] [phone] MEDICAL DIRECTORDEAN MCWILLIAMS M.D. Performed By: #### B MP, MG ####[place] [id number] [facility] No Panel InformationOrdered By: Gabriel Gould on 04-11-2023 Bedside Glucose #2 Comment Cleaned meter [facility] A1C with Estimated Average G luon 04-10-2023 Glucose [Mass/Vol] 235 mg/dL Normal [facility] Comment on above: Result Comment: PERF ORMED BY:[place] [address] [address], [place] [phone] MEDICAL DIRECTORDEAN MCWILLIAMS M.D. Performed By: #### C BC, CRP, BMP, LIPID, A1C WTH eA, MG ####[place] [address] Automated basophil %Ordered By: Gabriel Gould on 04-10-2023 Basophils/100 WBC (Bld) 0.4 % Normal . [facility] Comment on above: Performed By: #### C BC, CRP, BMP, LIPID, A1C WTH eA, MG ####[address] Automated basophil countOrde red By: Gabriel Gould on 04-10-2023 Basophils (Bld) [#/Vol] 0.0 10*3/uL Normal 0.0-0.2 [facility] Comment on above: Result Comment: PERF ORMED BY:[address] [place], [place] [phone] MEDICAL DIRECTORDEAN MCWILLIAMS M.D. Performed By: #### C BC, CRP, BMP, LIPID, A1C WT eA, MG ####[address] Automated blood monocyte cou ntOrdered By: Gabriel Gould on 04-10-2023 Monocytes (Bld) [#/Vol] 0.8 10*3/uL Normal 0.0-0.8 [facility] Comment on above: Performed By: #### C BC, CRP, BMP, LIPID, A1C WTH eA, MG ####[address] Automated eosinophil %Ordere d By: Gabriel Gould on 04-10-2023 Eosinophils/100 WBC (Bld) 0.5 % Normal . [facility] Comment on above: Performed By: #### C BC, CRP, BMP, LIPID, A1C WTH eA, MG ####[address] Automated eosinophil countOr dered By: Gabriel Gould on 04-10-2023 Eosinophils (Bld) [#/Vol] 0.0 10*3/uL Normal 0.0-0.45 [facility] Comment on above: Performed By: #### C BC, CRP, BMP, LIPID, A1C WTH eA, MG ####[address] Automated monocyte %Ordered By: Gabriel Gould on 04-10-2023 Monocytes/100 WBC (Bld) 10.6 % Normal . [facility] Comment on above: Performed By: #### C BC, CRP, BMP, LIPID, A1C WTH eA, MG ####[place] [id number] [facility] Automated neutrophil %Ordere d By: Gabriel Gould on 04-10-2023 Neutrophils/100 WBC (Bld) 84.9 % Normal . [facility] Comment on above: Performed By: #### C BC, CRP, BMP, LIPID, A1C WTH eA, MG ####[address] Basic Metabolic Panelon 03-15 Anion gap [Moles/Vol] 16.8 mmol/L High 6.0-15.0 [facility] Comment on above: Order Comment: FASTI NG Y Performed By: #### C BC, CRP, BMP, LIPID, A1C WTH eA, MG ####[address] Calcium [Mass/Vol] 9.2 mg/dL Normal 8.6-10.3 [facility] Comment on above: Order Comment: FASTI NG Y Performed By: #### C BC, CRP, BMP, LIPID, A1C WTH eA, MG ####[place] [id number] [facility] Chloride [Moles/Vol] 95 mmol/L Low 98-107 [facility] Comment on above: Order Comment: FASTI NG Y Performed By: #### C BC, CRP, BMP, LIPID, A1C WTH eA, MG ####[place] [id number] [facility] CO2 [Moles/Vol] 25.2 mmol/L Normal 21.0-31.0 [facility] Comment on above: Order Comment: FASTI NG Y Performed By: #### C BC, CRP, BMP, LIPID, A1C WTH eA, MG ####[place] [address] Creatinine [Mass/Vol] 9.83 mg/dL Significan t change up 0.70-1.30 [facility] Comment on above: Order Comment: FASTI NG Y Performed By: #### C BC, CRP, BMP, LIPID, A1C WTH eA, MG ####[place] [address] Creatinine Clr Calc Pharmacy 8.58 Normal [facility] Comment on above: Order Comment: FASTI NG Y Performed By: #### C BC, CRP, BMP, LIPID, A1C WTH eA, MG ####[place] [address] GFR/1.73 sq M.predicted MDRD (S/P/Bld) [Vol rate/Area] 5.313 mL/min/{1.73_m2} Normal [facility] Comment on above: Order Comment: FASTI NG Y Performed By: #### C BC, CRP, BMP, LIPID, A1C WTH eA, MG ####[address] Glucose [Mass/Vol] 115 mg/dL High 70-100 [facility] Comment on above: Order Comment: FASTI NG Y Result Comment: [place] Glucose Reference Range is dependent on time and content of last meal. Glucose of more than 200 mg/dL in a nonstressed, ambulatory subject supports the diagnosis of Diabetes Mellitus. ADA recommended reference range Performed By: #### C BC, CRP, BMP, LIPID, A1C WTH eA, MG ####[place] [address] Potassium [Moles/Vol] 5.0 mmol/L Normal 3.5-5.1 [facility] Comment on above: Order Comment: FASTI NG Y Performed By: #### C BC, CRP, BMP, LIPID, A1C WTH eA, MG ####[address] Sodium [Moles/Vol] 132 mmol/L Low 136-145 [facility] Comment on above: Order Comment: FASTI NG Y Performed By: #### C BC, CRP, BMP, LIPID, A1C WTH eA, MG ####[facility] [place] [id number] [facility] Urea nitrogen [Mass/Vol] 40 mg/dL High 7-25 [facility] Comment on above: Order Comment: FASTI NG Y Performed By: #### C BC, CRP, BMP, LIPID, A1C WTH eA, MG ####[place] [address] [place] [address] [facility] C-Reactive Proteinon 024 C-Reactive Protein 12.5 mg/dL High 0.0-0.5 [facility] Comment on above: Order Comment: FASTI NG Y Performed By: #### C BC, CRP, BMP, LIPID, A1C WTH eA, MG ####[place] [address] [place] [id number] [facility] Cholesterol [Mass/volume] in Serum or PlasmaOrdered By: Gabriel Gould on 04-10-2023 Cholesterol [Mass/Vol] 74 mg/dL Low 140-200 [facility] Comment on above: Chol less than 200 m g/dl low riskChol 201-239 mg/dl borderline riskChol 240 mg/dl and greater high risk Order Comment: FASTI NG Y Result Comment: Chol less than 200 mg/dl low risk Chol 201-239 mg/dl borderline risk Chol 240 mg/dl and greater high risk Performed By: #### C BC, CRP, BMP, LIPID, A1C WTH eA, MG ####[place] [address] [place] [id number] [place] Cholesterol in LDL Calc [Mas s/Vol]Ordered By: Gabriel Gould on 04-10-2023 Cholesterol in LDL [Mass/Vol] 21 mg/dL 0-100 [facility] Comment on above: LDL ATP III CLASSIFI CATIONLDL less than 100 mg/dL OptimalLDL 100-129 mg/dL Near or above optimalLDL 130-159 mg/dL Borderline highLDL 160-189 mg/dL HighLDL greater than 189 mg/dL Very high Cholesterol in VLDL Calc [Ma ss/Vol]Ordered By: Gabirel Gould on 04-10-2023 Cholesterol in VLDL [Mass/Vol] 13 mg/dL [facility] Complete Blood Count Auto Di ffon 04-10-2023 Erythrocyte distribution width (RBC) [Ratio] 15.1 % High 12.0-14.8 [facility] Comment on above: Performed By: #### C BC, CRP, BMP, LIPID, A1C WTH eA, MG ####[address] Hematocrit (Bld) [Volume fraction] 30.7 % Low 38.8-50.0 [facility] Comment on above: Performed By: #### C BC, CRP, BMP, LIPID, A1C WTH eA, MG ####[address] Hemoglobin (Bld) [Mass/Vol] 10.4 g/dL Low 13.0-17.0 [facility] Comment on above: Performed By: #### C BC, CRP, BMP, LIPID, A1C WTH eA, MG ####[address] MCH (RBC) [Entitic mass] 31.1 pg Normal 27.5-35.2 [facility] Comment on above: Performed By: #### C BC, CRP, BMP, LIPID, A1C WTH eA, MG ####[address] MCV (RBC) [Entitic vol] 91.9 fL Normal 83.5-101 [facility] Comment on above: Performed By: #### C BC, CRP, BMP, LIPID, A1C WTH eA, MG ####[address] Mean Corpuscular HGB Conc 33.8 g/dL Normal 32.5-35.6 [facility] Comment on above: Performed By: #### C BC, CRP, BMP, LIPID, A1C WTH eA, MG ####[address] NRBC% 0.1 /100{WBC} Normal 0-0.5 [facility] Comment on above: Performed By: #### C BC, CRP, BMP, LIPID, A1C WTH eA, MG ####[address] Platelet mean volume (Bld) [Entitic vol] 8.5 fL Normal 6.6-10.1 [facility] Comment on above: Performed By: #### C BC, CRP, BMP, LIPID, A1C WTH eA, MG ####[address] Platelets (Bld) [#/Vol] 215 10*3/uL Normal 150-450 [facility] Comment on above: Performed By: #### C BC, CRP, BMP, LIPID, A1C WTH eA, MG ####[address] RBC (Bld) [#/Vol] 3.34 10*6/uL Low 3.90-5.60 [facility] Comment on above: Performed By: #### C BC, CRP, BMP, LIPID, A1C WTH eA, MG ####[place] [id number] [facility] Erythrocyte Sedimentation Ra kunal 04-10-2023 ESR (Bld) [Velocity] 68 mm/h High 0-19 [facility] Comment on above: Result Comment: PERF ORMED BY:[address] [place], [place] [phone] MEDICAL DIRECTORDEAN MCWILLIAMS M.D. Performed By: #### E SR ####[place] [id number] [facility] Erythrocyte sedimentation ra te by Photometric methodOrdered By: Alfredo Acosta on 04-10-2023 ESR Photometric method (Bld) [Velocity] 68 mm/hr 0-19 [facility] Glucose Poct Glucometerson 0 04-10-2023 Glucose [Mass/Vol] 398 mg/dL Normal [facility] Comment on above: Result Comment: [place] Glucose Reference Range is dependent on time and content of last meal. Glucose of more than 200 mg/dL in a nonstressed, ambulatory subject supports the diagnosis of Diabetes Mellitus.PERFORMED BY:[place] [address] [address] [place], [place] [phone] MEDICAL DIRECTORDEAN MCWILLIAMS M.D. Performed By: #### G LULS ####Point of Care testing, Glucose [Mass/Vol] 308 mg/dL Normal [facility] Comment on above: Result Comment: [place] om Glucose Reference Range is dependent on time and content of last meal. Glucose of more than 200 mg/dL in a nonstressed, ambulatory subject supports the diagnosis of Diabetes Mellitus.PERFORMED BY:[place] [address] [place], [place] [phone] MEDICAL DIRECTORDEAN MCWILLIAMS M.D. Performed By: #### G LULS ####Point of Care testing, Commemt1 Glu2: Cleaned Meter Normal [facility] Comment on above: Result Comment: PERF ORMED BY:[place] [address] [address] [place], [place] [phone] MEDICAL DIRECTORDEAN MCWILLIAMS M.D. Performed By: #### G LULS ####Point of Care testing, Glucose [Mass/Vol] 137 mg/dL Normal [facility] Comment on above: Result Comment: [place] om Glucose Reference Range is dependent on time and content of last meal. Glucose of more than 200 mg/dL in a nonstressed, ambulatory subject supports the diagnosis of Diabetes Mellitus. Performed By: #### G LULS ####Point of Care testing, Commemt1 Glu2: Cleaned Meter Normal [facility] Comment on above: Result Comment: PERF ORMED BY:[address] [place], [place] [phone] MEDICAL JAKE MCWILLIAMS M.D. Performed By: #### G LULS ####Point of Care testing, Glucose [Mass/Vol] 117 mg/dL Normal [facility] Comment on above: Result Comment: [place] om Glucose Reference Range is dependent [...] from glycated hemoglobin (Bld) [Mass/Vol] 235 mg/dL [facility] Hemoglobin A1c percentageOrd ered By: Gabriel Gould on 04-10-2023 HbA1c (Bld) [Mass fraction] 9.8 % High 4.3-5.6 [facility] Comment on above: Increased risk for d iabetes: 5.7 - 6.4diabetes: >6.4glycemic control for adults with diabetes: <7.0 Result Comment: Incr eased risk for diabetes: 5.7 - 6.4 diabetes: >6.4 glycemic control for adults with diabetes: <7.0 Performed By: #### C BC, CRP, BMP, LIPID, A1C WTH eA, MG ####[facility] [address] Leukocytes [#/volume] in Blo od by Automated countOrdered By: Gabriel Gould on 04-10-2023 WBC (Bld) [#/Vol] 7.8 10*3/uL Normal 4.1-10.5 [facility] Comment on above: Performed By: #### C BC, CRP, BMP, LIPID, A1C WTH eA, MG ####[facility] [id number] [address] Lipid Panelon 04-10-2023 LDL Cholesterol,Calculated 21 mg/dL Normal 0-100 [facility] Comment on above: Order Comment: FASTI NG Y Result Comment: LDL ATP III CLASSIFICATION LDL less than 100 mg/dL Optimal LDL 100-129 mg/dL Near or above optimal LDL 130-159 mg/dL Borderline high LDL 160-189 mg/dL High LDL greater than 189 mg/dL Very high Performed By: #### C BC, CRP, BMP, LIPID, A1C WTH eA, MG ####[facility] [id number] [address] Triglyceride w/Reflex 66 mg/dL Normal 0-149 [facility] Comment on above: Order Comment: FASTI NG Y Result Comment: TRIG ATP III CLASSIFICATION TRIG less than 150 mg/dL Normal TRIG 150-199 mg/dL Borderline high TRIG 200-500 mg/dL High TRIG greater than 500 mg/dL Very high Standard traceable to the Center for Disease Conrtrol and Prevention (CDC) test method. Performed By: #### C BC, CRP, BMP, LIPID, A1C WTH eA, MG ####[facility] VLDL CHOLESTEROL 13 mg/dL Normal [facility] Comment on above: Order Comment: FASTI NG Y Performed By: #### C BC, CRP, BMP, LIPID, A1C WTH eA, MG ####[place] [address] Lymphocytes [#/volume] in Bl ood by Automated countOrdered By: Gabriel Gould on 04-10-2023 Lymphocytes (Bld) [#/Vol] 0.3 10*3/uL Low 1.00-4.8 [facility] Comment on above: Performed By: #### C BC, CRP, BMP, LIPID, A1C WTH eA, MG ####[place] [address] Lymphocytes/100 leukocytes i n Blood by Automated countOrdered By: Gabriel Gould on 04-10-2023 Lymphocytes/100 WBC (Bld) 3.6 % Normal . [facility] Comment on above: Performed By: #### C BC, CRP, BMP, LIPID, A1C WTH eA, MG ####[place] [address] MR foot LT wo conon 04-10-19 MR foot LT wo con Normal [facility] Magnesiumon 04-10-2023 Magnesium [Mass/Vol] 2.0 mg/dL Normal 1.9-2.7 [facility] Comment on above: Order Comment: FASTI NG Y Performed By: #### C BC, CRP, BMP, LIPID, A1C WTH eA, MG ####[place] [address] [place] [address] [facility] Neutrophils [#/volume] in Bl ood by Automated countOrdered By: Gabriel Gould on 04-10-2023 Neutrophils (Bld) [#/Vol] 6.6 10*3/uL Normal 1.8-7.7 [facility] Comment on above: Performed By: #### C BC, CRP, BMP, LIPID, A1C WTH eA, MG ####[place] [address] [place] [id number] [facility] Nucleated erythrocytes [Pres ence] in Blood by Automated countOrdered By: Gabriel Gould on 04-10-2023 Nucleated RBC Auto Ql (Bld) 0.1 /100{WBC} 0-0.5 [facility] Serum or plasma high density lipoprotein (HDL) cholesterol measurementOrdered By: Gabriel Gould on 04-10-2023 Cholesterol in HDL [Mass/Vol] 40 mg/dL Normal 23-92 [facility] Comment on above: HDL CHOL ATP-III CLA SSIFICATION Cardiovascular RiskHDL > or equal to 60 mg/dL LOWHDL < 40 mg/dL HIGH Order Comment: FASTI NG Y Result Comment: HDL CHOL ATP-III CLASSIFICATION Cardiovascular Risk HDL > or equal to 60 mg/dL LOW HDL < 40 mg/dL HIGH Performed By: #### C BC, CRP, BMP, LIPID, A1C WTH eA, MG ####[address] [address] [facility] Serum or plasma total choles terol/high density lipoprotein (HDL) cholesterol mass ratOrdered By: Gabriel Gould on 04-10-2023 Cholesterol.total/Chol esterol in HDL [Mass ratio] 1.9 {ratio} Normal <5.0 [facility] Comment on above: Order Comment: FASTI NG Y Result Comment: PERF ORMED BY:[address] [place], [place] [phone] MEDICAL JAKE MCWILLIAMS M.D. Performed By: #### C BC, CRP, BMP, LIPID, A1C WTH eA, MG ####[place] [address] [place] [id number] [facility] Triglyceride [Mass/volume] i n Serum or PlasmaOrdered By: Gabriel Gould on 04-10-2023 Triglyceride [Mass/Vol] 66 mg/dL 0-149 [facility] Comment on above: TRIG ATP III CLASSIF ICATIONTRIG less than 150 mg/dL NormalTRIG 150-199 mg/dL Borderline highTRIG 200-500 mg/dL High TRIG greater than 500 mg/dL Very highStandard traceable to the Center for Disease Conrtrol and Prevention (CDC) test method. US arterial pvr rest Amber US arterial pvr rest LE Normal [facility] US venous duplex LE LTon US venous duplex LE LT Normal Th [facility] Anisocytosis [Presence] in B lood by Light microscopyOrdered By: Mikey Allen on 04-09-2023 Anisocytosis Ql (Bld) Slight Normal [facility] Comment on above: Performed By: #### E SR, SCAN CBC, MG, BMP ####[facility] Xni3929 [address] Bacteria identified Aer cx N om (Unsp spec)Ordered By: Mikey Allen on 04-09-2023 Superficial Wound Culture Proteus mirabilis [facility] Bacterial blood cultureOrder ed By: Mikey Allen on 04-09-2023 Bacteria identified Cx Nom (Bld) NO GROWTH 5 DAYS [facility] Bacteria identified Cx Nom (Bld) NO GROWTH 5 DAYS [facility] Basic Metabolic Panelon 03-15 Anion gap [Moles/Vol] 21.2 mmol/L High 6.0-15.0 [facility] Comment on above: Performed By: #### E SR, SCAN CBC, MG, BMP ####[facility] [id number] [place] [phone] [facility] Calcium [Mass/Vol] 9.8 mg/dL Normal 8.6-10.3 [facility] Comment on above: Performed By: #### E SR, SCAN CBC, MG, BMP ####[facility] Hvs4247 [place] [phone] [facility] Chloride [Moles/Vol] 93 mmol/L Low 98-107 [facility] Comment on above: Performed By: #### E SR, SCAN CBC, MG, BMP ####[address] CO2 [Moles/Vol] 25.3 mmol/L Normal 21.0-31.0 [facility] Comment on above: Performed By: #### E SR, SCAN CBC, MG, BMP ####[address] Creatinine [Mass/Vol] 8.07 mg/dL High 0.70-1.30 [facility] Comment on above: Performed By: #### E SR, SCAN CBC, MG, BMP ####[address] Creatinine Clr Calc Pharmacy 10.36 Normal [facility] Comment on above: Result Comment: PERF ORMED BY:[address] [place], [place] [phone] MEDICAL DIRECTORDEAN MCWILLIAMS M.D. Performed By: #### E SR, SCAN CBC, MG, BMP ####[address] GFR/1.73 sq M.predicted MDRD (S/P/Bld) [Vol rate/Area] 6.732 mL/min/{1.73_m2} Normal [facility] Comment on above: Performed By: #### E SR, SCAN CBC, MG, BMP ####[address] Glucose [Mass/Vol] 175 mg/dL High 70-100 [facility] Comment on above: Result Comment: [place] om Glucose Reference Range is dependent on time and content of last meal. Glucose of more than 200 mg/dL in a nonstressed, ambulatory subject supports the diagnosis of Diabetes Mellitus. ADA recommended reference range Performed By: #### E SR, SCAN CBC, MG, BMP ####[address] Potassium [Moles/Vol] 5.5 mmol/L High 3.5-5.1 [facility] Comment on above: Performed By: #### E SR, SCAN CBC, MG, BMP ####[address] [address] [facility] Sodium [Moles/Vol] 134 mmol/L Low 136-145 [facility] Comment on above: Performed By: #### E SR, SCAN CBC, MG, BMP ####[address] [address] [facility] Urea nitrogen [Mass/Vol] 36 mg/dL High 7-25 [facility] Comment on above: Performed By: #### E SR, SCAN CBC, MG, BMP ####[address] [address] [facility] Blood Cultureon 04-09-2023 Bacteria identified Cx Nom (Bld) NO GROWTH 5 DAYS PERFORMED BY: [place] [address] PATHOLOGIST MEDICAL ECONOMICS CONSULTANT DEAN MCWILLIAMS M.D. Normal [facility] Comment on above: Performed By: #### C UBLD, LACTIC ####[place] [phone] [facility] Bacteria identified Cx Nom (Bld) NO GROWTH 5 DAYS PERFORMED BY: [address] [place] [address] PATHOLOGIST MEDICAL ECONOMICS CONSULTANT DEAN MCWILLIAMS M.D. Normal [facility] Comment on above: Performed By: #### C UBLD, LACTIC ####[place] [phone] [facility] Erythrocyte Sedimentation Ra kunal 04-09-2023 ESR (Bld) [Velocity] 91 mm/h High 0-19 [facility] Comment on above: Result Comment: PERF ORMED BY:[address] [place], [place] [phone] MEDICAL DIRECTORDEAN MCWILLIAMS M.D. Performed By: #### E SR, SCAN CBC, MG, BMP ####[address] [address] [facility] Glucose Poct Glucometerson 0 04-09-2023 Commemt1 Glu2: Cleaned Meter Normal [facility] Comment on above: Result Comment: PERF ORMED BY:[place] [address] [place], [place] [phone] MEDICAL DIRECTORDEAN MCWILLIAMS M.D. Performed By: #### G LULS ####Point of Care testing, Glucose [Mass/Vol] 275 mg/dL Normal [facility] Comment on above: Result Comment: [facility] Glucose Reference Range is dependent on time and content of last meal. Glucose of more than 200 mg/dL in a nonstressed, ambulatory subject supports the diagnosis of Diabetes Mellitus. Performed By: #### G LULS ####Point of Care testing, Hypochromia LM Ql (Bld)Order ed By: Mikey Allen on 04-09-2023 Hypochromia Ql (Bld) Slight [facility] Lactate [Moles/volume] in Se rum or PlasmaOrdered By: Mikey Allen on 04-09-2023 Lactate [Moles/Vol] 1.1 mmol/L Normal 0.5-2.2 [facility] Comment on above: Result Comment: PERF ORMED BY:[place] [address] [place], [place] [phone] MEDICAL DIRECTORDEAN MCWILLIAMS M.D. Performed By: #### C UBLD, LACTIC ####[address] [address] [place] Magnesiumon 04-09-2023 Magnesium [Mass/Vol] 2.1 mg/dL Normal 1.9-2.7 [facility] Comment on above: Result Comment: PERF ORMED BY:[place] [address] [place], [place] [phone] MEDICAL DIRECTORDEAN MCWILLIAMS M.D. Performed By: #### E SR, SCAN CBC, MG, BMP ####[address] [address] [facility] Monocyte distribution width [Entitic volume] in Blood by AutomatedOrdered By: Mikey Allen on 04-09-2023 Monocyte distribution width Auto (Bld) [Entitic vol] 22.19 % 0.00-20.00 [facility] Comment on above: For adults in ED, MD W > 20.0 may be associated with a higher risk of sepsis during the first 12 hrs of hospital admission Ovalocyte detectionOrdered B y: Mikey Allen on 04-09-2023 Ovalocytes LM Ql (Bld) Slight [facility] Platelet adequacy [Presence] in Blood by Light microscopyOrdered By: Mikey Alejandro on 04-09-2023 Platelets LM Ql (Bld) Normal Normal [facility] Platelet morphology finding [Identifier] in BloodOrdered By: Mikey Alejandro on 04-09-2023 Platelet morphology finding Nom (Bld) Normal Normal [facility] Poikilocytosis [Presence] in Blood by Light microscopyOrdered By: Mikey Alejandro on 04-09-2023 Poikilocytosis LM Ql (Bld) Slight [facility] RBC morphologyOrdered By: Sa lorena Allen on 04-09-2023 RBC morphology finding Nom (Bld) N/A [facility] Scan and CBCon 04-09-2023 Basophils (Bld) [#/Vol] 0.0 10*3/uL Normal 0.0-0.2 [facility] Comment on above: Performed By: #### E SR, SCAN CBC, MG, BMP ####[facility] Eip2810 [place] [phone] [place] Basophils/100 WBC (Bld) 0.5 % Normal . [facility] Comment on above: Performed By: #### E SR, SCAN CBC, MG, BMP ####[facility] Lbg3642 [place] [address] [place] Eosinophils (Bld) [#/Vol] 0.1 10*3/uL Normal 0.0-0.45 [facility] Comment on above: Performed By: #### E SR, SCAN CBC, MG, BMP ####[facility] [address] [place] [address] [place] Eosinophils/100 WBC (Bld) 1.1 % Normal . [facility] Comment on above: Performed By: #### E SR, SCAN CBC, MG, BMP ####[address] Erythrocyte distribution width (RBC) [Ratio] 15.3 % High 12.0-14.8 [facility] Comment on above: Performed By: #### E SR, SCAN CBC, MG, BMP ####[address] Hematocrit (Bld) [Volume fraction] 33.3 % Low 38.8-50.0 [facility] Comment on above: Performed By: #### E SR, SCAN CBC, MG, BMP ####[address] Hemoglobin (Bld) [Mass/Vol] 11.2 g/dL Low 13.0-17.0 [facility] Comment on above: Performed By: #### E SR, SCAN CBC, MG, BMP ####[address] Hypochromasia Slight Normal [facility] Comment on above: Performed By: #### E SR, SCAN CBC, MG, BMP ####[address] Lymphocytes (Bld) [#/Vol] 0.8 10*3/uL Low 1.00-4.8 [facility] Comment on above: Performed By: #### E SR, SCAN CBC, MG, BMP ####[address] Lymphocytes/100 WBC (Bld) 9.2 % Normal . [facility] Comment on above: Performed By: #### E SR, SCAN CBC, MG, BMP ####[address] MCH (RBC) [Entitic mass] 30.8 pg Normal 27.5-35.2 [facility] Comment on above: Performed By: #### E SR, SCAN CBC, MG, BMP ####[address] MCV (RBC) [Entitic vol] 92.2 fL Normal 83.5-101 [facility] Comment on above: Performed By: #### E SR, SCAN CBC, MG, BMP ####[address] Mean Corpuscular HGB Conc 33.4 g/dL Normal 32.5-35.6 [facility] Comment on above: Performed By: #### E SR, SCAN CBC, MG, BMP ####[address] Monocytes (Bld) [#/Vol] 1.6 10*3/uL High 0.0-0.8 [facility] Comment on above: Performed By: #### E SR, SCAN CBC, MG, BMP ####[address] Monocytes/100 WBC (Bld) 22.19 % High 0.00-20.00 [facility] Comment on above: Result Comment: For adults in ED, MDW > 20.0 may be associated with a higher risk of sepsis during the first 12 hrs of hospital admission Performed By: #### E SR, SCAN CBC, MG, BMP ####[address] Monocytes/100 WBC (Bld) 17.7 % Normal . [facility] Comment on above: Performed By: #### E SR, SCAN CBC, MG, BMP ####[address] Neutrophils (Bld) [#/Vol] 6.3 10*3/uL Normal 1.8-7.7 [facility] Comment on above: Performed By: #### E SR, SCAN CBC, MG, BMP ####[address] Neutrophils/100 WBC (Bld) 71.5 % Normal . [facility] Comment on above: Performed By: #### E SR, SCAN CBC, MG, BMP ####[address] NRBC% 0.1 /100{WBC} Normal 0-0.5 [facility] Comment on above: Performed By: #### E SR, SCAN CBC, MG, BMP ####[address] Ovalocytes Slight Normal [facility] Comment on above: Performed By: #### E SR, SCAN CBC, MG, BMP ####[address] Platelet Estimate Normal Normal Normal [facility] Comment on above: Performed By: #### E SR, SCAN CBC, MG, BMP ####[address] Platelet mean volume (Bld) [Entitic vol] 8.5 fL Normal 6.6-10.1 [facility] Comment on above: Performed By: #### E SR, SCAN CBC, MG, BMP ####[address] Platelet Morphology Normal Normal Normal [facility] Comment on above: Performed By: #### E SR, SCAN CBC, MG, BMP ####[address] Platelets (Bld) [#/Vol] 223 10*3/uL Normal 150-450 [facility] Comment on above: Performed By: #### E SR, SCAN CBC, MG, BMP ####[address] Poikilocytosis Slight Normal [facility] Comment on above: Performed By: #### E SR, SCAN CBC, MG, BMP ####[address] RBC (Bld) [#/Vol] 3.62 10*6/uL Low 3.90-5.60 [facility] Comment on above: Performed By: #### E SR, SCAN CBC, MG, BMP ####[address] WBC (Bld) [#/Vol] 8.8 10*3/uL Normal 4.1-10.5 [facility] Comment on above: Performed By: #### E SR, SCAN CBC, MG, BMP ####[facility] [id number] [place] [address] [facility] Superficial Wound Cultureon 04-09-2023 Superficial Wound Culture Normal [facility] Comment on above: Performed By: #### C USUP ####[facility] Juc[address]51 [place] [id number] [facility] XR foot LT min 3V*on 024 XR foot LT min 3V* Normal [facility] Outside Progress Noteon 03-15 Outside Progress Note [id number] Normal [facility] Follow-Upon 03-15-2023 Follow-Up [id number] Syed Murphy [place] 1955 M Date Provider Department Center 03/15/2023 DEIDRE GREEN [facility] No family history on file Level of Service:30991 UT POSTOP FOLLOW UP VISIT RELATED TO ORIGINAL PX Reason for Visit and Comments: Follow-up [956709] - Check maturation Rbrac-ceph AVF created on 01/18/23 [facility] Follow-Upon 02-06-2023 Follow-Up [id number] Syed Murphy [place] 1955 M Date Provider Department Center 02/06/2023 DEIDRE GREEN [facility] No family history on file Level of Service:30840 UT POSTOP FOLLOW UP VISIT RELATED TO ORIGINAL PX Reason for Visit and Comments: Post-op [483] - S/P RUE AV Fistula creation on 01/18/23 [facility] 29on 01-21-2023 29 Addendum created 01/03 1344 by Maranda Chavez MD Clinical Note Signed Normal [facility] APTTon 01-18-2023 ACTIVATED PARTIAL THROMBOPLASTIN TIME IN PPP BY COAGULATION ASSAY 29.4 Seconds Normal 25.0-35.0 [facility] Comment on above: Result Comment: Clin ical significance of the APTT is questionable in the presence of heparin. Performed By: #### L [id number] #### [facility] ([facility]) [address] [place] [address] Anesthesiaon 01-18-2023 Anesthesia [id number] Syed Murphy 1955 M Date Provider Department Center 01/18/2023 JOSÉ LYNN [facility] No family history on file Normal [facility] BASIC METABOLIC PANELon Anion gap [Moles/Vol] 16 mmol/L Normal 7-20 [facility] Comment on above: Performed By: #### L AB15 ####[facility] ([facility])[address] [place] [address] Calcium [Mass/Vol] 9.6 mg/dL Normal 8.6-10.3 [facility] Comment on above: Performed By: #### L AB15 ####[facility] ([facility])[address] [place] [address] Chloride [Moles/Vol] 100 mmol/L Normal 98-107 [facility] Comment on above: Performed By: #### L [id number] ####[facility] ([facility])[address] [place] [address] CO2 [Moles/Vol] 23 mmol/L Normal 21-31 [facility] Comment on above: Performed By: #### L [id number] ####[facility] ([facility])[address] [place] [address] Creatinine [Mass/Vol] 7.03 mg/dL High 0.70-1.30 [facility] Comment on above: Performed By: #### L AB15 ####[facility] ([facility])[address] [place] [address] GLOMERULAR FILTRATION RATE ML/MIN/1.73 SQ M.PREDICTED 7.9 mL/min/1.73m*2 Low >60.0 [facility] Comment on above: Result Comment: [facility]???s estimated glomerular filtration rate (eGFR) will no [...] of individuals. Performed By: #### L [id number] ####[facility] ([facility])[address] [place] [address] Glucose [Mass/Vol] 96 mg/dL Normal 70-100 [facility] Comment on above: Performed By: #### L [id number] ####[facility] ([facility])[address] [place] [address] Potassium [Moles/Vol] 3.4 mmol/L Low 3.5-5.[address] [facility] Comment on above: Performed By: #### L [id number] ####[facility] ([facility])[address] [place] [address] Sodium [Moles/Vol] 136 mmol/L Normal 136-145 [facility] Comment on above: Performed By: #### L [id number] ####[facility] ([facility])[address] [place] [address] Urea nitrogen [Mass/Vol] 19 mg/dL Normal 7-25 [facility] Comment on above: Performed By: #### L [id number] ####[facility] ([facility])[address] [place] [address] UREA NITROGEN/CREATININE (MASS RATIO) IN SER/PLAS 2.7 Normal [facility] Comment on above: Performed By: #### L [id number] ####[facility] ([facility])[address] [place] [address] CBCon 01-18-2023 Erythrocyte distribution width (RBC) [Ratio] 14.2 % Normal 11.5-15.0 [facility] Comment on above: Performed By: #### L [id number] #### [facility] [address] [place] [address] ERYTHROCYTE MEAN CORPUSCULAR HEMOGLOBIN CONCENTRATION (G/DL) BY AUTOMATED 33.2 g/dL Normal 32.0-35.0 [facility] Comment on above: Performed By: #### L [id number] #### [facility] [address] [place] [address] Hematocrit (Bld) [Volume fraction] 35.8 % Low 39.0-55.0 [facility] Comment on above: Performed By: #### L [id number] #### [facility] ([facility]) [address] [place] [address] Hemoglobin (Bld) [Mass/Vol] 11.9 g/dL Low 13.0-17.0 [facility] Comment on above: Performed By: #### L [id number] #### [facility] [address] [place] [address] MCH (RBC) [Entitic mass] 31.2 pg Normal 27.0-33.0 [facility] Comment on above: Performed By: #### L [id number] #### [facility] [address] [place] [address] MCV (RBC) [Entitic vol] 93.7 fL Normal 82.0-98.0 [facility] Comment on above: Performed By: #### L [id number] #### [facility] [address] [place] [address] PLATELETS (10*3/UL) IN BLOOD AUTOMATED COUNT 189 10*3/uL Normal 150-400 [facility] Comment on above: Performed By: #### L [id number] #### [facility] [address] [place] [address] RBC (Bld) [#/Vol] 3.82 10*6/uL Low 4.20-5.70 [facility] Comment on above: Performed By: #### L [id number] #### [facility] ([facility]) [address] [place] [address] WBC (Bld) [#/Vol] 6.40 10*3/uL Normal 4.00-10.60 [facility] Comment on above: Performed By: #### L [id number] #### [facility] ([facility]) [address] [facility] [place] [address] Labon 01-18-2023 Lab [id number] Syed Murphy marshall 1955 M Date Provider Department [place] 01/18/2023 [id number]-[facility] OPD LAB RESOURCE [facility] OPD [facility] No family history on file Normal [facility] MRSA/MSSA DNA NASALon 2022 MRSA DNA Negative Normal Negative [facility] Comment on above: Order Comment: Testi ng [...] preclude nasal colonization. Performed By: #### L [id number] ####[facility] [facility] [place] [address] MSSA DNA Negative Normal Negative [facility] Comment on above: Order Comment: Testi ng [...] preclude nasal colonization. Performed By: #### L [id number] ####[facility] ([facility])[address] [place] [address] NURSNOTEon 01-18-2023 NURSNOTE Prescription filled and sent home with patient. Cont with + thrill and bruit. Stable for DC home. [facility] NURSNOTE DC instructions revi ewed with patient and mother, copy given. [facility] OPNOTEon 01-18-2023 OPNOTE ------ -- Attestation signed by Greg Alarcon MD at 01/18/2023 2:03 PM I was present for the entire procedure. -- DATE OF PROCEDURE: 01/18/23 PATIENT NAME: Seth Murphy SURGEON: * Greg Alarcon - Primary ASSISTANTS: Ana Snyder MD STAFF: Lead Javascript Engineer: Clifford Cheek RN Scrub Person: VELVET Schumacher Lead Javascript Engineer: NINOSKA CLAYTON Scrub: Ron Gama CST PRE-OP DIAGNOSIS: ESRD POST-OP DIAGNOSIS: same PROCEDURE: Procedure(s): Right Radial Cephalic Fistula Creation - CPT Codes 30314,74345,35597,49272 (Right) ANESTHESIA: General EBL: 5 mL FLUIDS: [...] Alarcon was present for the entire procedure. [facility] Orders Onlyon 01-18-2023 Orders Only [id number] Syed Murphy marshall 1955 M Date Provider Department Center 01/18/2023 ALAN [place] [facility] No family history on file [facility] POCT GLUCOSE METER UNSOLICIT ED RESULTSon 01-18-2023 Glucose [Mass/Vol] 116 mg/dL High 70-105 [facility] Comment on above: Order Comment: Waive d Testing in the ED is performed under the ED CLIA certificate #[id number]. Result Comment: rtat e Performed By: #### L [id number] #### [facility] ([facility]) [address] [place] [address] POCT PERFUSION PANEL UNSOLIC ITED RESULTSon 01-18-2023 CO2 [Moles/Vol] 28.0 mmol/L Normal 21.0-29.0 [facility] Comment on above: Performed By: #### L [id number] ####[facility] ([facility])[address] [place] [address] Glucose [Mass/Vol] 116 mg/dL High 70-105 [facility] Comment on above: Performed By: #### L [id number] ####[facility] ([facility])[address] [place] [address] HCO3 (Bld) [Moles/Vol] 26.8 mmol/L Normal 23.0-28.0 [facility] Comment on above: Performed By: #### L [id number] ####[facility] ([facility])[address] [place] [address] Hematocrit (Bld) [Volume fraction] 36 % Low 38-51 [facility] Comment on above: Performed By: #### L [id number] ####[facility] ([facility])[address] [place] [address] Hemoglobin (Bld) [Mass/Vol] 12.2 g/dL Normal 12.0-17.0 [facility] Comment on above: Performed By: #### L [id number] ####[facility] ([facility])[address] [place] [address] POCT BASE EXCESS 2.0 mmol/L Normal -2.0-3.0 [facility] Comment on above: Performed By: #### L [id number] ####[facility] ([facility])[address] [place] [address] POCT IONIZED CALCIUM 1.24 mmol/L Normal 1.12-1.32 [facility] Comment on above: Performed By: #### L [id number] ####[facility] ([facility])[address] [place] [address] POCT PCO2 43.4 mmHg Normal 41.0-51.0 [facility] Comment on above: Performed By: #### L [id number] ####[facility] ([facility])[address] [place] [address] POCT PH 7.40 Normal 7.31-7.41 [facility] Comment on above: Performed By: #### L [id number] ####[facility] ([facility])[address] [place] [address] POCT PO2 43 mmHg Low 80-105 [facility] Comment on above: Performed By: #### L [id number] ####[facility] ([facility])[address] [place] [address] POCT SO2 78 % Low 95-98 [facility] Comment on above: Performed By: #### L [id number] ####[facility] ([facility])[address] [address] Potassium [Moles/Vol] 3.5 mmol/L Normal 3.5-4.[address] [facility] Comment on above: Performed By: #### L [id number] ####[facility] ([facility])[address] [place] [address] Sodium [Moles/Vol] 135 mmol/L Low 138.0-146 . 0 [facility] Comment on above: Performed By: #### L [id number] ####[facility] ([facility])[address] [place] [address] PROTIME-INRon 01-18-2023 INR IN PPP BY COAGULATION ASSAY 1.00 Normal 0.90-1.10 [facility] Comment on above: Result Comment: ACCC P [...] 1995;108:231S-246S. Performed By: #### L [id number] #### [facility] ([facility]) [address] [place] [address] PROTHROMBIN TIME (PT) IN PPP BY COAGULATION ASSAY 13.2 Seconds Normal 12.3-14.8 [facility] Comment on above: Performed By: #### L [id number] #### [facility] ([facility]) [address] [place] [address] Orders Onlyon 01-16-2023 Orders Only [id number] Syed Murphy marshall 1955 M Date Provider Department Center 01/16/2023 BEBE VICKERS [facility] No family history on file Normal [facility] ANESon 01-15-2023 ANES Physical Exam Airway Mallampati: III TM distance: >3 FB Neck ROM: full Cardiovascular Rhythm: regular Rate: normal Dental Pulmonary Plan ASA 3 Moderate Normal [facility] HPon 01-15-2023 HP History Of Present I [...] ESRD (end stage renal disease) on dialysis ([facility]) [N18.6, Z99.2 (ICD-10-CM)] Right: Patent radial inflow artery with volume flow of 214 ml/min. Patent radial artery with biphasic waveforms. Average volume flow within radial to cephalic arteriovenous fistula is 410 ml/min. Patent outflow proximal cephalic vein with no evidence of stenosis or narrowing. Patent subclavian spectral Doppler waveforms. Notes: Indication: ESRD (end stage renal disease) on dialysis ([facility]) [N18.6, Z99.2 (ICD-10-CM)] Right: Patent radial [...] Problems: End stage renal disease on dialysis ([facility]) Encounter for pre-operative examination 67 yo male with history of right upper extremity AVF who presents today for fistulogram Fistulogram today, if procedure goes well patient can be discharged after procedure. Ana Phan MD PGY-4 Vascular Surgery Resident 01/15/23 [facility] NURSNOTEon 01-15-2023 NURSNOTE RN educated pt on d/ c instructions. RN encouraged pt to voice any questions or concerns. Pt verbalizes no questions or concerns at this time. Pt was wheeled off of unit with all of belongings. [facility] Orders Onlyon 01-10-2023 Orders Only [id number] Syed Murphy 1955 M Date Provider Department Center 01/10/2023 730-BEEB CAMPOS [facility] No family history on file [facility] Follow-Upon 01-09-2023 Follow-Up [id number] Syed Murphy marshall 1955 M Date Provider Department [place] 01/09/2023 503-DEIDRE SANDERSON [facility] No family history on file Level of Service:78787 UT OFFICE/OUTPATIENT ESTABLISHED LOW MDM 20-29 MIN Reason for Visit and Comments: Follow-up [641588] - radiocephalic AV fistula creation 10/04/22 [facility] Follow-Upon 10-16-2022 Follow-Up [id number] Syed Murphy marshall 1955 M Date Provider Department Center 10/16/2022 DimitriNeymarLOR GAMEZEN [facility] No family history on file Level of Service:56636 UT OFFICE/OUTPT VISIT,PROCEDURE ONLY Reason for Visit and Comments: Follow-up [194880] - 2 week post op R AVF creation [facility] HPon 10-02-2022 [facility] Vascular Surgery HISTORY & PHYSICAL Reason for Admission: Right AV fistula creation History of Present Illness: Seth Murphy is a 66 y.o. male with PMH significant for ESRD, diabetes, anemia, HTN, HLD, hypothyroidism, MS, and peripheral vascular disease. He presents today [...] for ESRD, diabetes, anemia, HTN, HLD, hypothyroidism, MS, and peripheral vascular disease who presents today for right AV fistula creation. Plan: Will proceed with right AV fistula creation today with Dr. Alarcon Risks, benefits, and alternatives were discussed with patient and he is agreeable Jessee Mitchell MD General Surgery Resident, PGY-1 Vascular Surgery Service 10/02/22 [facility] OPNOTEon 10-02-2022 OPNOTE ------ -- [...] Gutierrez MD General Surgery PGY4 10/03/2022 Normal [facility] POCT PERFUSION PANEL UNSOLIC ITED RESULTSon 10-02-2022 CO2 [Moles/Vol] 26.0 mmol/L Normal 21.0-29.0 [facility] Comment on above: Performed By: #### L [id number] #### [facility] ([facility]) [address] [place] [address] Glucose [Mass/Vol] 154 mg/dL High 70-105 [facility] Comment on above: Performed By: #### L [id number] #### [facility] ([facility]) [address] [place] [address] HCO3 (Bld) [Moles/Vol] 24.5 mmol/L Normal 23.0-28.0 [facility] Comment on above: Performed By: #### L [id number] #### [facility] ([facility]) [address] [place] [address] Hematocrit (Bld) [Volume fraction] 43 % Normal 38-51 [facility] Comment on above: Performed By: #### L [id number] #### [facility] ([facility]) [address] [place] [address] Hemoglobin (Bld) [Mass/Vol] 14.6 g/dL Normal 12.0-17.0 [facility] Comment on above: Performed By: #### L [id number] #### [facility] ([facility]) [address] [place] [address] POCT BASE EXCESS -1.0 mmol/L Normal -2.0-3.0 [facility] Comment on above: Performed By: #### L [id number] #### [facility] ([facility]) [address] [place] [address] POCT IONIZED CALCIUM 1.26 mmol/L Normal 1.12-1.32 [facility] Comment on above: Performed By: #### L [id number] #### [facility] ([facility]) [address] [place] [address] POCT PCO2 41.3 mmHg Normal 41.0-51.0 [facility] Comment on above: Performed By: #### L [id number] #### [facility] ([facility]) [address] [place] [address] POCT PH 7.38 Normal 7.31-7.41 [facility] Comment on above: Performed By: #### L [id number] #### [facility] ([facility]) [address] [place] [address] POCT PO2 45 mmHg Low 80-105 [facility] Comment on above: Performed By: #### L [id number] #### [facility] ([facility]) [address] [place] [address] POCT SO2 79 % Low 95-98 [facility] Comment on above: Performed By: #### L [id number] #### [facility] [address] [place] [address] Potassium [Moles/Vol] 4.2 mmol/L Normal 3.5-4.[address] [facility] Comment on above: Performed By: #### L [id number] #### [facility] [address] [place] [address] Sodium [Moles/Vol] 137 mmol/L Low 138.0-146 . 0 [facility] Comment on above: Performed By: #### L [id number] #### [facility] [address] [place] [address] US [facility] 08-17-2022 US Arterial and Venous Mapping [...] : 0.37 Depth (cm) : 0.22 Right Evp Chief Exploration Officer Vn Diameter (cm) : 0.48 Right Lateral [...] (cm) : Non vis prev fistula Left Evp Chief Exploration Officer Vn Diameter (cm) : 0.21 Left Medial [...] Lower Arm Diameter (cm) : 0.14 Normal [facility] Consent for Treatmenton 07-0 Consent for Treatment [id number]#1.00CD:127 [facility] Coding Queryon 08-10-2022 Coding Query - [...] depth mentioned in the op report Normal [facility] Outside Recordson 08-02-2022 Outside Records [id number]#1.00CD:127 Normal [facility] Consent for Treatmenton 07-12 Consent for Treatment [id number]#1.00CD:127 Normal [facility] Heart and Vascular Office/Cl inic Noteon [...] with contrast (08/04/2020), Removal of catheter (07/07/2020), PORTER USED CAR LOT (06/16/2020), AV - Creation of arteriovenous fistula [...] Primary malign (more content not included)... 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 This report was transcribed using voice recognition software. Every effort was made to ensure accuracy, however, inadvertently computerized producer director mistakes may be present. Subjective Pt seen [...] Lymph Auto: 11.3 % Low (07/15/22 06:07:00) [place] Auto: 16.4 % High (07/15/22 06:07:00) (more content not included)... Normal [facility] Comment on above: Result Comment: Elec tronically Signed By: WESLEY PETEVijaya\.br\Date and Time Signed: 07/15/22 12:01 EDT\.br\Electronically Co-Signed By: Vijaya SANDOVAL\.br\Date and Time Co-Signed: 07/15/22 12:02 EDT\.br\Electronically Co-Signed By: Fuentes Rodriguez MD\.br\Date and Time Co-Signed: 07/23/22 07:37 EDT Discharge Instructionson Discharge Instructions [id number]#1.00CD:127 Normal [facility] Monitor Recordon 07-20-2022 Monitor Record [id number]#1.00CD:127 Normal [facility] Transfer Documentson 023 Transfer Documents [id number]#1.00CD:127 Normal [facility] BMPon 07-19-2022 Creatinine [Mass/Vol] 7.7 mg/dL Abnormal 0.5-1.3 [facility] Comment on above: Result Comment: Crit ical Result verified by previous result\Critical Result S_CREA:7.70 Called to [facility] by CATHY LERNER And Read Back For Confirmation at: 07/19/2022 08:27:40\Result S_CREA:7.70 Called to [facility] AT [facility] by CATHY LERNER And Read Back For Confirmation at: 07/19/2022 08:27:40 Performed By: #### 1 [id number], 0904135, 1990888, [id number] #### [facility] [address] [place] [address] Anion gap [Moles/Vol] 9 mmol/L Normal 6-16 [facility] Comment on above: Performed By: #### 1 [id number], 3387120, 8945031, 0787739 #### [facility] [address] [place] [address] Calcium [Mass/Vol] 8.0 mg/dL Low 8.9-11.1 [facility] Comment on above: Performed By: #### 1 1017438, 9117027, 5552825, 0315987 #### [facility] [address] [place] [address] Chloride [Moles/Vol] 104 mmol/L Normal 101-111 [facility] Comment on above: Performed By: #### 1 [id number], 9336627, 2271098, 9028016 #### [facility] [address] [place] [address] CO2 [Moles/Vol] 27 mmol/L Normal 21-31 [facility] Comment on above: Performed By: #### 1 3454699, 8434647, 2519574, 6446437 #### [facility] [address] [place] [address] Glucose [Mass/Vol] 180 mg/dL Normal 55-199 [facility] Comment on above: Result Comment: If t his glucose result represents a fasting glucose, interpretation should refer to the following reference range: 55-99 mg/dL Performed By: #### 1 5001623, 7723573, 3894313, 7366783 #### [facility] [address] [place] [address] Potassium [Moles/Vol] 3.7 mmol/L Normal 3.5-5.3 [facility] Comment on above: Performed By: #### 1 0889394, 0934165, 8203898, 7847509 #### [facility] [address] [place] [address] Sodium [Moles/Vol] 136 mmol/L Normal 135-145 [facility] Comment on above: Performed By: #### 1 7334385, 7993592, 0756337, 3117004 #### [facility] [address] [place] [address] Urea nitrogen [Mass/Vol] 18 mg/dL Normal 5-21 [facility] Comment on above: Performed By: #### 1 0641267, 4195654, 2202339, 6610866 #### [facility] [address] [place] [address] Urea nitrogen/Creatinine [Mass ratio] 2 No Units Low 10-20 [facility] Comment on above: Performed By: #### 1 2335608, 2877164, 7788027, 8506422 #### [facility] [address] [place] [address] CBC w/Indiceson 07-19-2022 Erythrocyte distribution width (RBC) [Ratio] 17.6 % High 10.9-14.2 [facility] Comment on above: Performed By: #### 1 8142494, 5499900, 6991956, 0085816 #### [facility] [address] [place] [address] Hematocrit (Bld) [Volume fraction] 25.0 % Low 37.7-49.0 [facility] Comment on above: Performed By: #### 1 9687744, 0439448, 6869923, 1391707 #### [facility] [address] [place] [address] Hemoglobin (Bld) [Mass/Vol] 8.3 g/dL Low 13.5-17.5 [facility] Comment on above: Performed By: #### 1 9588371, 0282268, 9621869, 2411553 #### [facility] [address] [place] [address] MCH (RBC) [Entitic mass] 30.0 pg Normal 27.0-34.0 [facility] Comment on above: Performed By: #### 1 0771868, 0629772, 3117132, 2667433 #### [facility] [address] [place] [address] MCHC (RBC) [Mass/Vol] 33.4 g/dL Normal 31.4-36.0 [facility] Comment on above: Performed By: #### 1 0752564, 6120426, 9767825, 6552285 #### [facility] [address] [place] [address] MCV (RBC) [Entitic vol] 90.1 fL Normal 80.0-100.0 [facility] Comment on above: Performed By: #### 1 6471649, 6922734, 2336905, 1474142 #### [facility] [address] [place] [address] Platelet mean volume (Bld) [Entitic vol] 8.0 fL Normal 6.4-10.8 [facility] Comment on above: Performed By: #### 1 4518001, 2564330, 0758191, 8631113 #### [facility] [address] [place] [address] Platelets (Bld) [#/Vol] 204.0 E9/L Normal 150.0-500. 0 [facility] Comment on above: Performed By: #### 1 7987976, 1989765, 2246336, 3187069 #### [facility] [address] [place] [address] RBC (Bld) [#/Vol] 2.8 E12/L Low 4.3-5.9 [facility] Comment on above: Performed By: #### 1 5029370, 1317437, 8440812, 4051874 #### [facility] [address] [place] [address] WBC corrected for nucl RBC Auto (Bld) [#/Vol] 6.1 E9/L Normal 4.0-11.0 [facility] Comment on above: Performed By: #### 1 6578847, 1704855, 0279948, 4407647 #### [facility] [address] [place] [address] Capillary Glucose POCon 06-0 8-2022 Glucose [Mass/Vol] 198 mg/dL High 55-99 [facility] Comment on above: Result Comment: Run Lab Confirmation No Coverage Given Insulin Started Performed By: #### 1 3093896, 5133050, 1485004, 5333571 #### [facility] [address] [place] [address] Glucose [Mass/Vol] 187 mg/dL High 55-99 [facility] Comment on above: Result Comment: Ambrocio ELIAS Performed By: #### 1 9337127, 8090555, 2280218, 7743770 #### [facility] [address] [place] [address] Glucose [Mass/Vol] 110 mg/dL High 55-99 [facility] Comment on above: Result Comment: Ambrocio ELIAS Performed By: #### 2 [id number] ####[facility] [address] [place] [address] Glucose [Mass/Vol] 162 mg/dL High 55-99 [facility] Comment on above: Result Comment: Ambrocio ELIAS Performed By: #### 2 [id number] ####[facility] [address] [place] [address] Inpatient Clinical Summaryon 07-19-2022 Inpatient Clinical Summary [address] [address] Clinical Summary Person Information: Name: SETH MURPHY Age: 66 Years : 1955 Sex: Male PCP: Nav Alejo MD Marital Status: Race: White Ethnicity: Non- or Language: Chadian Visit Id: Visit Reason: INFECTION Speciality: Acuity: Enc Type: Inpatient Med Service: Medical Arrival: 07/12/2022 14:01:25 Discharge: Dispo Type: Address: [address] [place] [address] [id number] Provider Notes: Diagnosis: 1:Sepsis; 2:Cellulitis of arm; [...] 100 Units Intravenous every 24 hours. Follow [facility] PICC line flushing policy. Refills: 0. insulin [...] up: With: Address: When: Greg Alarcon [address] [place] [address] Business (1) Within 7 to 10 days With: Address: When: Alfredo Acosta [address] [place] [address] Business (1) Within 1 to 2 weeks With: Address: When: [facility]: [facility] [phone] Within 5 to 7 days With: Address: When: Nav Alejo [address] [place] [address], [facility] [address] Business (1) Patient Education Information: Cellulitis, Adult, Trna-rn-Wbry; Antibiotic Medicine, Adult, [facility] To Dose Normal [facility] Inpatient Patient Summaryon 07-19-2022 Inpatient Patient [...] with contrast (08/04/2020), Removal of catheter (07/07/2020), PORTER USED CAR LOT (06/16/2020), AV - Creation of arteriovenous fistula [...] Pending Diagnostic Test Results None Pharmacy Information [facility] Discharge Instructions Follow up appts as writtenLeft [...] to 10 days Where: [address] [place] [address]- Business (1) Follow Up with Alfredo Acosta When: Within 1 to 2 weeks Where: [address] [place] [address]- Business (1) Follow Up with [facility]: [facility] [phone] When: Within 5 to 7 days Follow Up with Nav Alejo When: In 0 days Where: [address] [place] [place] [address]- Business (1) Medications What How Much When [...] By M (more content not included)... Normal [facility] Inpatient Patient Summary [address] [address] Patient Discharge Instructions PERSON INFORMATION Name: SETH MURPHY Date of : 1955 Current Date: 07/19/2022 17:08:10 PHYSICIANS Admitting Physician: Michael FISH, [facility] Primary Care Physician: Nav Alejo [...] up: With: Address: When: Greg Alarcon [address] [place] [address] Business (1) Within 7 to 10 days With: Address: When: Alfredo Acosta [address] [place] [address] Business (1) Within 1 to 2 weeks With: Address: When: [facility]: [place] [phone] Within 5 to 7 days With: Address: When: Nav Alejo [address], [facility] [place] [address] Business (1) In the event that this [...] 100 Units Intravenous every 24 hours. Follow [facility] PICC line flushing policy. Refills: 0. Last [...] Mouth ever (more content not included)... Normal [facility] Monitor Recordon 07-19-2022 Monitor Record [id number]#1.00CD:127 Normal [facility] Monitor Record [id number]#1.00CD:127 Normal [facility] Monitor Record [id number]#1.00CD:127 Normal [facility] Monitor Record [id number]#1.00CD:127 Normal [facility] Monitor Record [id number]#1.00CD:127 Normal [facility] Progress Note-Nurseon 2022 Progress Note-Nurse [id number]#1.00CD:127 Normal [facility] Progress Note-Nurse [id number]#1.00CD:127 [facility] Progress Note-Physicianon Progress Note-Physician Patient: SETH [...] q12hr, # 20 cap(s), Refills(s) 0, Pharmacy: [facility]/pharmacy #[id number], 178, cm, 07/09/22 17:32:00 EDT, [...] comment) hydrALAZ (more content not included)... Normal [facility] Comment on above: Result Comment: Elec tronically Signed By: Aaron FISH, Cristino\.br\Date and Time Signed: 07/19/22 09:34 EDT eGFRon 07-19-2022 GFR/1.73 sq M.predicted among non-blacks MDRD (S/P/Bld) [Vol rate/Area] 7 mL/min/1.73 m2 Low >=59 [facility] Comment on above: Order Comment: Order added by Discern Expert. Result Comment: Casino Manager jm kidney disease could be indicated at eGFR's of less than 60 mL/min/1.73m2. Kidney failure is indicated at less than 15 mL/min/1.73m2. Performed By: #### 1 6261931, 6384097, 9578711, 1557583 #### [facility] [address] [place] [address] BMPon 07-18-2022 Creatinine [Mass/Vol] 9.7 mg/dL Abnormal 0.5-1.3 [facility] Comment on above: Result Comment: Crit ical Result verified by repeat analysis\Critical Result S_CREA:9.70 Called to MARC SRINIVASAN AT 3S by DK DAVIES And Read Back For Confirmation at: 07/18/2022 07:11:52\Result S_CREA:9.70 Called to MARC SRINIVASAN AT 3S by DK DAVIES And Read Back For Confirmation at: 07/18/2022 07:11:52 Performed By: #### 1 7942463, 6968953, 8502337, 0768116 #### [facility] [address] [facility] [place] [address] Anion gap [Moles/Vol] 15 mmol/L Normal 6-16 [facility] Comment on above: Performed By: #### 1 0814083, 9093800, 0934394, 0040954 #### [facility] [address] [place] [address] Calcium [Mass/Vol] 8.1 mg/dL Low 8.9-11.1 [facility] Comment on above: Performed By: #### 1 1655605, 3011383, 3820919, 9957381 #### [facility] [address] [place] [address] Chloride [Moles/Vol] 104 mmol/L Normal 101-111 [facility] Comment on above: Performed By: #### 1 1724503, 2261195, 4456615, 4326021 #### [facility] [address] [place] [address] CO2 [Moles/Vol] 23 mmol/L Normal 21-31 [facility] Comment on above: Performed By: #### 1 3836914, 8492210, 1174515, 4618985 #### [facility] [address] [place] [address] Glucose [Mass/Vol] 131 mg/dL Normal 55-199 [facility] Comment on above: Result Comment: If t his glucose result represents a fasting glucose, interpretation should refer to the following reference range: 55-99 mg/dL Performed By: #### 1 4318342, 2908559, 7863477, 3518394 #### [facility] [address] [place] [address] Potassium [Moles/Vol] 3.8 mmol/L Normal 3.5-5.3 [facility] Comment on above: Performed By: #### 1 0741115, 2200015, 5892320, 8671839 #### [facility] [address] [place] [address] Sodium [Moles/Vol] 138 mmol/L Normal 135-145 [facility] Comment on above: Performed By: #### 1 4184992, 9744833, 5932838, 2533962 #### [facility] [address] [place] [address] Urea nitrogen [Mass/Vol] 29 mg/dL High 5-21 [facility] Comment on above: Performed By: #### 1 3098683, 1592802, 3492050, 0121512 #### [facility] [address] [place] [address] Urea nitrogen/Creatinine [Mass ratio] 3 No Units Low 10-20 [facility] Comment on above: Performed By: #### 1 1740564, 1972311, 9342171, 3182114 #### [facility] [address] [place] [address] CBC w/Indiceson 07-18-2022 Erythrocyte distribution width (RBC) [Ratio] 17.2 % High 10.9-14.2 [facility] Comment on above: Performed By: #### 1 3479761, 5052378, 9881212, 7736916 #### [facility] [address] [place] [address] Hematocrit (Bld) [Volume fraction] 25.0 % Low 37.7-49.0 [facility] Comment on above: Performed By: #### 1 9528678, 8354000, 8824186, 4636603 #### [facility] [address] [place] [address] Hemoglobin (Bld) [Mass/Vol] 8.5 g/dL Low 13.5-17.5 [facility] Comment on above: Performed By: #### 1 3046229, 3888804, 4677349, 8649175 #### [facility] [address] [place] [address] MCH (RBC) [Entitic mass] 30.3 pg Normal 27.0-34.0 [facility] Comment on above: Performed By: #### 1 1889382, 2588353, 5357829, 5236798 #### [facility] [address] [place] [address] MCHC (RBC) [Mass/Vol] 33.9 g/dL Normal 31.4-36.0 [facility] Comment on above: Performed By: #### 1 4587179, 2278170, 9268841, 2019811 #### [facility] [address] [place] [address] MCV (RBC) [Entitic vol] 89.4 fL Normal 80.0-100.0 [facility] Comment on above: Performed By: #### 1 1747977, 5995350, 9284022, 1163568 #### [facility] [address] [place] [address] Platelet mean volume (Bld) [Entitic vol] 7.2 fL Normal 6.4-10.8 [facility] Comment on above: Performed By: #### 1 8207066, 6050918, 9200910, 8796337 #### [facility] [address] [place] [address] Platelets (Bld) [#/Vol] 187.0 E9/L Normal 150.0-500. 0 [facility] Comment on above: Performed By: #### 1 5241405, 3490245, 8867758, 0505775 #### [facility] [address] [place] [address] RBC (Bld) [#/Vol] 2.8 E12/L Low 4.3-5.9 [facility] Comment on above: Performed By: #### 1 0047833, 7315481, 4479631, 2063991 #### [facility] [address] [place] [address] WBC corrected for nucl RBC Auto (Bld) [#/Vol] 5.6 E9/L Normal 4.0-11.0 [facility] Comment on above: Performed By: #### 1 2940989, 3665544, 0303086, 1121261 #### [facility] [address] [place] [address] Capillary Glucose POCon 06-0 Glucose [Mass/Vol] 288 mg/dL High 55-99 [facility] Comment on above: Result Comment: Ambrocio ELIAS Performed By: #### 1 8847904, 3336885, 4755286, 6408390 #### [facility] [address] [place] [address] Glucose [Mass/Vol] 267 mg/dL High 55-99 [facility] Comment on above: Result Comment: Ambrocio ELIAS Performed By: #### 2 78272561 ####[facility] [address] [place] [address] Glucose [Mass/Vol] 122 mg/dL High 55-99 [facility] Comment on above: Result Comment: Ambrocio ELIAS Performed By: #### 2 73666891 ####[facility] [address] [place] [address] Glucose [Mass/Vol] 129 mg/dL High 55-99 [facility] Comment on above: Result Comment: Ambrocio ELIAS Performed By: #### 2 15380377 #### [facility] [address] [place] [address] Interdisciplinary Note - Paresh e Manageron 07-18-2022 Interdisciplinary Note - Licensed Funeral Director And Embalmer Pt is awake and alert in bed, previously rounded with kyler CARRERA. Pt is receiving hemodialysis at this time, Plan to stay in hospital today, await cultures and will likely DC to [facility] tomorrow. Medicare rights reviewed, . PCP verified and insurance information reviewed and DME discussed. contact information provided and white board updated. [facility] Comment on above: Result Comment: Elec tronically Signed By: Obie TORREZ, Alaina\.br\Date and Time Signed: 07/18/22 11:15 EDT IntraOperative Documentson 07-18-2022 IntraOperative Documents [id number]#1.00CD:127 [facility] Message from Medicareon Message from Medicare [id number]#1.00CD:127 [facility] Message from Medicare [id number]#1.00CD:127 [facility] Monitor Recordon 07-18-2022 Monitor Record [id number]#1.00CD:127 [facility] Monitor Record [id number]#1.00CD:127 [facility] Monitor Record [id number]#1.00CD:127 [facility] Monitor Record [id number]#1.00CD:127 [facility] Progress Note - Pharmacyon 0 07-18-2022 [...] any questions, please contact the pharmacy at [phone]. Age: 66 Years Allergies: Brilinta; Coban Bandage [...] mg/dL High (07/18/22 07:36:00) POC Device SN: [id number] (07/18/22 07:36:00) POC User ID: [id number] (07/18/22 07:36:00) POC Username: ROGER VALERIO (07/18/22 07:36:00) [facility] Progress Note-Physicianon Progress Note-Physician Assessment/Plan 1. [...] artery disease (I25.10: Atherosclerotic heart disease of inupiat coronary artery without angina pectoris) -Aspirin, atorvastatin, [...] stage renal disease) On HD M/W/F at [facility] -Consult nephro -appreciated -- typically takes [...] deep vein thrombosis (DVT) prophylaxis (Z79.899: Other longterm (current) drug therapy) -Heparin sq with early ambulation -Plan discussed w/ patient, nursing staff and CRM. This report was transcribed using voice recognition software. Every effort was made to ensure accuracy, however, inadvertently computerized producer director mistakes may be present. Subjective Patient seen [...] of napoleon (more content not included)... Normal [facility] Comment on above: Result Comment: Elec tronically Signed By: Vijaya SANDOVAL\.br\Date and Time Signed: 07/18/22 13:34 EDT\.br\Electronically Co-Signed By: Pedro ARAUZ MD\.br\Date and Time Co-Signed: 07/18/22 16:54 EDT Progress Note-Physician Patient: SETH MURPHY Age: 66 years Sex: Male : 1955 Associated Diagnoses: None Author: Brian SHIN, Sarah Ugalde Interval History 66-year-old gentleman with end-stage kidney disease on hemodialysis Saturday at [facility] (follows with Dr. Nunez, Last dialyzed on [...] q12hr, # 20 cap(s), Refills(s) 0, Pharmacy: [facility]/pharmacy #[id number], 178, cm, 07/09/22 17:32:00 EDT, Height/Length Dosing, [...] 0, Thyro (more content not included)... Normal [facility] Comment on above: Result Comment: Elec tronically Signed By: Sarah Torres NP\.br\Date and Time Signed: 07/17/22 18:08 EDT\.br\Electronically Co-Signed By: Vane Miller MD\.br\Date and Time Co-Signed: 07/18/22 13:58 EDT Progress Note-Physician Patient: SETH MURPHY Age: 66 years Sex: Male : 1955 Associated Diagnoses: None Author: Vane Miller MD Interval History 66-year-old gentleman with end-stage kidney disease on hemodialysis Saturday at [facility] (follows with Dr. Nunez, Last dialyzed on [...] q12hr, # 20 cap(s), Refills(s) 0, Pharmacy: [facility]/pharmacy #[id number], 178, cm, 07/09/22 17:32:00 EDT, Height/Length Dosing, 92, kg, 07/09/22 17:32:00 EDT, Weight Dosing Documented Medications Documented Aranesp 25 mcg/0.42 mL Injection: Refills(s) 0 Celebrate Multivitamin: See Instructions, Refill(s) 0 Humalog Kwi (more content not included)... Normal [facility] Comment on above: Result Comment: [...] artery disease (I25.10: Atherosclerotic heart disease of inupiat coronary artery without angina pectoris) -Aspirin, atorvastatin, [...] stage renal disease) On HD M/W/F at [facility] -Consult nephro -appreciated -- typically takes [...] deep vein thrombosis (DVT) prophylaxis (Z79.899: Other longterm (current) drug therapy) -Heparin sq with early ambulation -Plan discussed w/ patient, nursing staff and CRM. This report was transcribed using voice recognition software. Every effort was made to ensure accuracy, however, inadvertently computerized producer director mistakes may be present. Subjective Pt seen [...] Lvl: 4. (more content not included)... Normal [facility] Comment on above: Result Comment: Elec tronically Signed By: Vijaya SANDOVAL\.br\Date and Time Signed: 07/17/22 11:34 EDT\.br\Electronically Co-Signed By: Pedro ARAUZ MD\.br\Date and Time Co-Signed: 07/18/22 08:23 EDT Vanco Troughon 07-18-2022 VANCOMYCIN 19 microgram/mL Normal 10-20 [facility] Comment on above: Order Comment: Pleas e draw one hour prior to next dose at on . Thank you. Performed By: #### 1 0670673, 1134872, 5829365, 7999221 #### [facility] [address] [place] [address] eGFRon 07-18-2022 GFR/1.73 sq M.predicted among non-blacks MDRD (S/P/Bld) [Vol rate/Area] 5 mL/min/1.73 m2 Low >=59 [facility] Comment on above: Order Comment: Order added by Discern Expert. Result Comment: Casino Manager jm kidney disease could be indicated at eGFR's of less than 60 mL/min/1.73m2. Kidney failure is indicated at less than 15 mL/min/1.73m2. Performed By: #### 1 1912989, 0561295, 8001674, 5481510 #### [facility] [address] [place] [address] BMPon 07-17-2022 Creatinine [Mass/Vol] 8.0 mg/dL Abnormal 0.5-1.3 [facility] Comment on above: Result Comment: Crit ical Result verified by repeat analysis\Critical Result S_CREA:8.00 Called to SILVIO ARZOLA AT 3S by MARC ROSALES And Read Back For Confirmation at: 07/17/2022 09:09:10\Result S_CREA:8.00 Called to SILVIO ARZOLA AT 3S by MARC ROSALES And Read Back For Confirmation at: 07/17/2022 09:09:10 Performed By: #### 2 839966, 28461868 ####[facility] [address] [place] [address] Urea nitrogen [Mass/Vol] 23 mg/dL High 5-21 [facility] Comment on above: Performed By: #### 2 191302, 72569483 ####[facility] [address] [place] [address] Urea nitrogen/Creatinine [Mass ratio] 3 No Units Low 10-20 [facility] Comment on above: Performed By: #### 2 077533, 06826333 ####[facility] [address] [place] [address] Anion gap [Moles/Vol] 14 mmol/L Normal 6-16 [facility] Comment on above: Performed By: #### 2 159504, 73240226 ####[facility] [address] [place] [address] Calcium [Mass/Vol] 7.8 mg/dL Low 8.9-11.1 [facility] Comment on above: Performed By: #### 2 789389, 02919380 ####[facility] [address] [place] [address] Chloride [Moles/Vol] 100 mmol/L Low 101-111 [facility] Comment on above: Performed By: #### 2 412788, 27288671 ####[facility] [address] [place] [address] CO2 [Moles/Vol] 27 mmol/L Normal 21-31 [facility] Comment on above: Performed By: #### 2 000570, 73752362 ####[facility] [address] [place] [address] Glucose [Mass/Vol] 195 mg/dL Normal 55-199 [facility] Comment on above: Result Comment: If t his glucose result represents a fasting glucose, interpretation should refer to the following reference range: 55-99 mg/dL Performed By: #### 2 872899, 23830528 ####[facility] [address] [place] [address] Potassium [Moles/Vol] 4.1 mmol/L Normal 3.5-5.3 [facility] Comment on above: Performed By: #### 2 153326, 64933314 ####[facility] [address] [place] [address] Sodium [Moles/Vol] 137 mmol/L Normal 135-145 [facility] Comment on above: Performed By: #### 2 599561, 32691424 ####[facility] [address] [place] [address] Capillary Glucose POCon 06-0 Glucose [Mass/Vol] 243 mg/dL High 55-99 [facility] Comment on above: Result Comment: Ambrocio ELIAS Performed By: #### 1 6874199, 4336468, 0867049, 9974263 #### [facility] [address] [place] [address] Glucose [Mass/Vol] 327 mg/dL High 55-99 [facility] Comment on above: Result Comment: Ambrocio ELIAS Performed By: #### 2 11407123 ####[facility] [address] [place] [address] Glucose [Mass/Vol] 290 mg/dL High 55-99 [facility] Comment on above: Result Comment: Ambrocio ELIAS Performed By: #### 2 61139390 ####[facility] [address] [place] [address] Glucose [Mass/Vol] 188 mg/dL High 55-99 [facility] Comment on above: Result Comment: Ambrocio vargas RN/MD Performed By: #### 2 94049932 #### [facility] [address] [place] [address] Consent for Anesthesiaon Consent for Anesthesia [id number]#1.00CD:127 Normal [facility] H&P Updateon 07-17-2022 H&P Update [id number]#1.00CD:127 Normal [facility] IntraOperative Documentson 0 07-17-2022 IntraOperative Documents [id number]#1.00CD:127 [facility] Main OR Intraoperative Recor don 07-17-2022 Main OR Intraoperative Record IntraOp Document Type FT Summary Primary Physician: Dorian FISH, Greg Lopez Finalized Date/Time: 07/17/22 11:22:21 Pt. Name: KATHERINESETH/Sex: 1955 Male Med Rec #: [id number] Physician: Fuentes Rodriguez MD Financial #: [id number] Pt. Type: I Room/Bed: [place] [address] Admit/Disch: 07/12/22 14:01:25 - Institution: Case Times [...] Acosta RN, CNOR, Annie Aragon Role Performed EBENEZER Surgeon - Primary P[employer] PLANTATION MANAGER Time In 07/16/22 12:24:00 07/16/22 12:58:00 07/16/22 [...] Mcintosh Ii, CST, Julie A Role Performed Lead Javascript Engineer - Primary Lead Javascript Engineer - Primary Scrub - Primary Time In [...] and tissue Entry 1 Skin Integrity Intact, [place], Warm, and Skin Abnormality No Dry Outcomes Met? Yes Last Modified By: Delilah Lee RN (more content not included)... Normal [facility] Monitor Recordon 07-17-2022 Monitor Record [id number]#1.00CD:127 [facility] Monitor Record [id number]#1.00CD:127 [facility] Operative Reporton Operative Report SURGERY DATE: [...] twice a day. Joana Zheng Dictated: 07/16/2022 [id number] Transcribed: 07/16/2022 [facility] Comment on above: Result Comment: Elec [...] ( From PACU to floor ). Normal [facility] Comment on above: Result Comment: [...] segment elevation myocardial infarction / SNOMED CT 6057310623 / Confirmed Acute systolic heart failure / SNOMED CT 2017750093 / Confirmed At risk for falls / SNOMED CT 302862902 / Possible Problem added when Risk for Falls Careplan was initiated. Coronary arteriosclerosis / SNOMED CT 31859213 / Confirmed Coronary artery disease / SNOMED CT 73119928 / Confirmed MRSA (methicillin resistant staph aureus) culture positive / SNOMED CT 2443207382 / Confirmed MRSA in lt arm wound 07/12/2022 Diabetes mellitus / SNOMED CT 129357648 / Confirmed Diabetes / SNOMED CT 191535040 / Confirmed Dyspnea / SNOMED CT 169657968 / Confirmed Dysuria / SNOMED CT 73512347 / Confirmed Edema of lower extremity / SNOMED CT 737979422 / Confirmed Electrocardiogram abnormal / SNOMED CT 3304635731 / Confirmed ESRD (end stage renal disease) on dialysis / SNOMED CT 454809955 / Confirmed Essential hypertension / SNOMED CT 53719672 / Confirmed Fatigue / SNOMED CT 397825956 / Confirmed Hyperlipidemia / SNOMED CT 28832509 / Confirmed Hypertension / SNOMED CT 3048713105 / Confirmed Hypothyroid / SNOMED CT 01679255 / Confirmed Impaired skin integrity / SNOMED CT 47920147 / Confirmed Problem added on documentation of skin impairments. Left ventricular hypertrophy / SNOMED CT 07416994 / Confirmed Neuropathy due to diabetes mellitus / SNOMED CT 4085086807 / Confirmed Pseudophakia / SNOMED CT 521100574 / Confirmed Apnea, sleep / SNOMED CT 959604707 / Confirmed Thrombophlebitis / SNOMED CT 174528616 / Confirmed Venous insufficiency of leg / SNOMED CT 904369214 / Confirmed Venous stasis ulcer of leg / SNOMED CT 3107494952 / Confirmed Objective General: Alert and oriented. [...] this can be given at HD. Normal [facility] Comment on above: Result Comment: Elec tronically Signed By: Alfredo Acosta M.D\Date and Time Signed: 07/17/22 14:03 EDT eGFRon 07-17-2022 GFR/1.73 sq M.predicted among non-blacks MDRD (S/P/Bld) [Vol rate/Area] 7 mL/min/1.73 m2 Low >=59 [facility] Comment on above: Order Comment: Order added by Discern Expert. Result Comment: Casino Manager jm kidney disease could be indicated at eGFR's of less than 60 mL/min/1.73m2. Kidney failure is indicated at less than 15 mL/min/1.73m2. Performed By: #### 2 630853, 32524271 ####[facility] [address] [place] [address] BMPon 07-16-2022 Creatinine [Mass/Vol] 11.6 mg/dL Abnormal 0.5-1.3 [facility] Comment on above: Result Comment: Crit ical Result verified by previous result\Critical Result S_CREA:11.60 Called to SILVIO ARZOLA AT 3S by CATHY LERNER And Read Back For Confirmation at: 07/16/2022 11:03:55\Result S_CREA:11.60 Called to SILVIO ARZOLA AT 3S by CATHY LERNER And Read Back For Confirmation at: 07/16/2022 11:03:55 Performed By: #### 1 8527644, 7978171, 8872978, 3189555 #### [facility] [address] [place] [address] Anion gap [Moles/Vol] 17 mmol/L High 6-16 [facility] Comment on above: Performed By: #### 1 4081979, 6893313, 9327485, 2955633 #### [facility] [address] [place] [address] Calcium [Mass/Vol] 8.4 mg/dL Low 8.9-11.1 [facility] Comment on above: Performed By: #### 1 9895032, 0096536, 3460112, 0107320 #### [facility] [address] [place] [address] Chloride [Moles/Vol] 100 mmol/L Low 101-111 [facility] Comment on above: Performed By: #### 1 7969744, 1822087, 3979806, 4822675 #### [facility] [address] [place] [address] CO2 [Moles/Vol] 24 mmol/L Normal 21-31 [facility] Comment on above: Performed By: #### 1 9891190, 8995981, 2375569, 8155205 #### [facility] [address] [place] [address] Glucose [Mass/Vol] 293 mg/dL High 55-199 [facility] Comment on above: Result Comment: If t his glucose result represents a fasting glucose, interpretation should refer to the following reference range: 55-99 mg/dL Performed By: #### 1 0633892, 4701586, 6797791, 3030507 #### [facility] [address] [place] [address] Potassium [Moles/Vol] 4.0 mmol/L Normal 3.5-5.3 [facility] Comment on above: Performed By: #### 1 2349747, 1967759, 3946062, 8408503 #### [facility] [address] [place] [address] Sodium [Moles/Vol] 137 mmol/L Normal 135-145 [facility] Comment on above: Performed By: #### 1 7654426, 9584740, 3625517, 1340002 #### [facility] [address] [place] [address] Urea nitrogen [Mass/Vol] 47 mg/dL High 5-21 [facility] Comment on above: Performed By: #### 1 0487776, 1126372, 4669801, 1843712 #### [facility] [address] [place] [address] Urea nitrogen/Creatinine [Mass ratio] 4 No Units Low 10-20 [facility] Comment on above: Performed By: #### 1 2549810, 0652843, 9350670, 1173806 #### [facility] [address] [place] [address] Capillary Glucose POCon 06- Glucose [Mass/Vol] 207 mg/dL High 55-99 [facility] Comment on above: Result Comment: Ambrocio vargas RN/ Performed By: #### 1 [id number], 7810371, 5083699, 8052989 #### [facility] [address] [place] [address] Glucose [Mass/Vol] 167 mg/dL [facility] 55-99 [facility] Comment on above: Result Comment: Ambrocio ELIAS Performed By: #### 1 3559157, 0222409, 5547317, 1058756 #### [facility] [address] [place] [address] Glucose [Mass/Vol] 266 mg/dL [facility] 55-99 [facility] Comment on above: Result Comment: Ambrocio vargas RN/ Performed By: #### 2 186358, 64566770, 3313622 #### [facility] [address] [place] [address] Glucose [Mass/Vol] 309 mg/dL [address] Comment on above: Result Comment: Danielle joe Meter Performed By: #### 2 223669, 58763025, 8438874 #### [facility] [address] [place] [address] Consent for Procedure/Surger yon 07-16-2022 Consent for Procedure/Surgery [id number]#1.00CD:127 Normal [facility] Electrocardiogram - 12 leado n 07-16-2022 Electrocardiogram - 12 lead [id number]#1.00CD:127 Normal [facility] Hct & Hgbon 07-16-2022 Hematocrit (Bld) [Volume fraction] 23.9 % Low 37.7-49.0 [facility] Comment on above: Performed By: #### 1 2565039, 8210872, 4619875, 9951791 #### [facility] [address] [place] [address] Hemoglobin (Bld) [Mass/Vol] 8.2 g/dL Low 13.5-17.5 [facility] Comment on above: Performed By: #### 1 6966331, 5484345, 8784188, 8989143 #### [facility] [address] [place] [address] Interdisciplinary Note - Paresh e Manageron 07-16-2022 Interdisciplinary Note - Licensed Funeral Director And Embalmer CRM to room and patient is down in OR with Vascular Patient is here for an infection as an inpatient. Patient was diagnosed with LUE AVF infection and thrombosis Patient was accepted to [facility] and plan will be to DC there once medically ready Normal [facility] Comment on above: Result Comment: Elec tronically Signed By: Tia White\.br\Date and Time Signed: 07/16/22 12:44 EDT Main OR PACU I Recordon Main OR PACU I Record PACU Phase I Docum ent Type FT Summary Primary Physician: Dorian FISH, Greg Lopez Finalized Date/Time: 07/16/22 14:40:11 Pt. Name: SETH MURPHY/Sex: 1955 Male Med Rec #: [id number] Physician: Fuentes Rodriguez MD Financial #: [id number] Pt. Type: I Room/Bed: [place] [address] Admit/Disch: 07/12/22 14:01:25 - Institution: Case Times [...] By: Pina Goetz RN 07/16/22 14:40 Normal [facility] Monitor Recordon 07-16-2022 Monitor Record [id number]#1.00CD:127 Normal [facility] Monitor Record [id number]#1.00CD:127 Normal [facility] Monitor Record [id number]#1.00CD:127 Normal [facility] Monitor Record [id number]#1.00CD:127 Normal [facility] Progress Note - Pharmacyon 0 07-16-2022 [...] have any questions, please contact pharmacy at [phone]. Age: 66 Years Allergies: ALLERGIES Weight: Last [...] mg/dL High (07/15/22 21:01:00) POC Device SN: [id number] (07/15/22 21:01:00) POC User ID: [id number] (07/15/22 21:01:00) POC Username: CLEMENCIA BROWNING (07/15/22 21:01:00) Normal [facility] Progress Note-Nurseon 2022 Progress Note-Nurse [id number]#1.00CD:127 Normal [facility] Progress Note-Physicianon Progress Note-Physician Patient: [...] segment elevation myocardial infarction / SNOMED CT 9615975661 / Confirmed Acute systolic heart failure / SNOMED CT 8109467496 / Confirmed At risk for falls / SNOMED CT 528324132 / Possible Problem added when Risk for Falls Careplan was initiated. Coronary arteriosclerosis / SNOMED CT 39637164 / Confirmed Coronary artery disease / SNOMED CT 58872767 / Confirmed MRSA (methicillin resistant staph aureus) culture positive / SNOMED CT 8020169151 / Confirmed MRSA in lt arm wound 07/12/2022 Diabetes mellitus / SNOMED CT 617466274 / Confirmed Diabetes / SNOMED CT 961466611 / Confirmed Dyspnea / SNOMED CT 971380999 / Confirmed Dysuria / SNOMED CT 98197521 / Confirmed Edema of lower extremity / SNOMED CT 580504685 / Confirmed Electrocardiogram abnormal / SNOMED CT 8496006192 / Confirmed ESRD (end stage renal disease) on dialysis / SNOMED CT 437295553 / Confirmed Essential hypertension / SNOMED CT 39030329 / Confirmed Fatigue / SNOMED CT 755822769 / Confirmed Hyperlipidemia / SNOMED CT 59625468 / Confirmed Hypertension / SNOMED CT 7791785878 / Confirmed Hypothyroid / SNOMED CT 22930641 / Confirmed Impaired skin integrity / SNOMED CT 56707386 / Confirmed Problem added on documentation of skin impairments. Left ventricular hypertrophy / SNOMED CT 88185723 / Confirmed Neuropathy due to diabetes mellitus / SNOMED CT 9199409066 / Confirmed Pseudophakia / SNOMED CT 076590825 / Confirmed Apnea, sleep / SNOMED CT 092609265 / Confirmed Thrombophlebitis / SNOMED CT 358547731 / Confirmed Venous insufficiency of leg / SNOMED CT 103718880 / Confirmed Venous stasis ulcer of leg / SNOMED CT 7703420170 / Confirmed Resolved: Anemia / SNOMED CT 303700155 Resolved: Congestive heart failure / SNOMED CT 11985379 Resolved: Hyperlipidemia / SNOMED CT 18877727 Resolved: Palpitations / SNOMED CT 258200804 Resolved: Thrombosis of superficial vein of lower limb / SNOMED CT 2630179744 Canceled: ESRD on dialysis / SNOMED CT 028484060 Histories Procedure history: Insertion of hemodialysis catheter ([id number]) on 07/02/2022 at 66 Years. Fistulogram with contrast (8202553062) on 03/15/2022 at 66 Years. Fluoroscopic fistulogram with contrast (1453876165) on 11/02/2021 at 65 Years. Fistulogram with contrast (5283671508) on 08/04/2020 at 64 Years. Removal of catheter (884504881) on 07/07/2020 at 64 Years. Comments: 07/07/2020 11:09 CYNTHIA Caballero RN, Ilene Larson removal of hemodialysis catheter PORTER USED CAR LOT (75127004) on 06/16/2020 at 64 Years. Comments: 06/16/2020 14:27 Lindy Sood RN PORTER USED CAR LOT of Left Fistula AV - Creation of arteriovenous fistula (076209522) on 03/31/2020 at 64 Years. AV fistula recirculation (380693073) on 08/06/2019 at 63 Years. Comments: 08/06/2019 14:34 EDT - Joy TORREZ, Lizy creation of av fistula of left arm. H/O: tracheostomy (181912327). Cholecystectomy (33337819). Abdominal hernia (940861531). Placement of stent in cardiac conduit x2 (2714477414). Social History Social & Psychosocial Habits Alcohol [...] adequate air exchange. Cardiovascular: Regular rhythm. Plan [place] [employer] Anesthesi[employer] (ASA) physical status classification: Class IV. Anesthetic Preoperative Plan: Anesthesia General. Normal [facility] Comment on above: Result Comment: [...] artery disease (I25.10: Atherosclerotic heart disease of inupiat coronary artery without angina pectoris) -Aspirin, atorvastatin, [...] stage renal disease) On HD M/W/F at [facility] -Consult nephro -appreciated -- typically takes [...] vein thrombosis (DVT) prophylaxis (Z79.899: 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) -Heparin sq with early ambulation -Plan discussed w/ patient, nursing staff and CRM. This report was transcribed using voice recognition software. Every effort was made to ensure accuracy, however, inadvertently computerized producer director mistakes may be present. Subjective Patient seen [...] (07/16/22 06:06:00) (more content not included)... Normal [facility] Comment on above: Result Comment: Elec tronically Signed By: Vijaya SANDOVAL\.br\Date and Time Signed: 07/16/22 11:35 EDT\.br\Electronically Co-Signed By: Pedro ARAUZ MD\.br\Date and Time Co-Signed: 07/16/22 12:52 EDT Progress Note-Physician Patient: SETH MURPHY Age: 66 years Sex: Male : 1955 Associated Diagnoses: None Author: Vane Miller MD Chief Complaint Interval History 66-year-old gentleman with end-stage kidney disease on hemodialysis Saturday at [facility] (follows with Dr. Nunez, Last dialyzed on [...] As Dire (more content not included)... Normal [facility] Comment on above: Result Comment: Elec tronically Signed By: Paul FISH, Vane\.br\Date and Time Signed: 07/16/22 12:12 EDT Vanco Troughon 07-16-2022 VANCOMYCIN 27 microgram/mL Abnormal 10-20 [facility] Comment on above: Result Comment: Crit ical Result verified by repeat analysis\Critical Result S_VANC_T:27.0 Called to SILVIO ARZOLA AT 3S by CATHY LERNER And Read Back For Confirmation at: 07/16/2022 07:34:50 Performed By: #### 1 3460833, 6676313, 1526915, 8543610 #### [facility] [address] [place] [address] eGFRon 07-16-2022 GFR/1.73 sq M.predicted among non-blacks MDRD (S/P/Bld) [Vol rate/Area] 4 mL/min/1.73 m2 Low >=59 [facility] Comment on above: Order Comment: Order Added by Discern Expert. Result Comment: Casino Manager jm kidney disease could be indicated at eGFR's of less than 60 mL/min/1.73m2. Kidney failure is indicated at less than 15 mL/min/1.73m2. Performed By: #### 1 9673676, 4949192, 3395377, 6156062 #### [facility] [address] [place] [address] Auto Diffon 07-15-2022 Basophils/100 WBC (Bld) 1.2 % Normal 0.0-2.0 [facility] Comment on above: Order Comment: Order Added by Discern Expert. Performed By: #### 1 9975909, 1120588, 3893213, 2024618 #### [facility] [address] [place] [address] Basophils/Leukocytes Auto (Bld) [Pure # fraction] 0.1 E9/L Normal 0.0-0.2 [facility] Comment on above: Order Comment: Order Added by Discern Expert. Performed By: #### 1 8257872, 4731561, 0618138, 9858612 #### [facility] [address] [place] [address] Eosinophils/100 WBC (Bld) 3.4 % Normal 0.0-8.0 [facility] Comment on above: Order Comment: Order Added by Discern Expert. Performed By: #### 1 8671317, 3461873, 6785860, 6662785 #### [facility] [address] [place] [address] Eosinophils/Leukocytes Auto (Bld) [Pure # fraction] 0.2 E9/L Normal 0.0-0.5 [facility] Comment on above: Order Comment: Order Added by Discern Expert. Performed By: #### 1 6178682, 7673712, 8594041, 1210723 #### [facility] [address] [place] [address] Lymphocytes/100 WBC (Bld) 11.3 % Low 14.0-50.0 [facility] Comment on above: Order Comment: Order Added by Cayla Expert. Performed By: #### 1 6971664, 7626444, 1385408, 4656556 #### [facility] [address] [place] [address] Lymphocytes/Leukocytes Auto (Bld) [Pure # fraction] 0.6 E9/L Low 1.0-4.0 [facility] Comment on above: Order Comment: Order Added by Discern Expert. Performed By: #### 1 6763975, 9702438, 4724185, 7456834 #### [facility] [address] [place] [address] Monocytes/100 WBC (Bld) 16.4 % High 4.0-14.0 [facility] Comment on above: Order Comment: Order Added by Discern Expert. Performed By: #### 1 1981319, 9781501, 6278896, 0035982 #### [facility] [address] [place] [address] Monocytes/Leukocytes Auto (Bld) [Pure # fraction] 0.9 E9/L Normal 0.2-1.0 [facility] Comment on above: Order Comment: Order Added by Discern Expert. Performed By: #### 1 1918658, 3424558, 1419812, 2058571 #### [facility] [address] [place] [address] Neutrophils/100 WBC (Bld) 67.7 % Normal 36.0-75.0 [facility] Comment on above: Order Comment: Order Added by Discern Expert. Performed By: #### 1 2466948, 7413664, 5550677, 2583633 #### [facility] [address] [place] [address] Neutrophils/Leukocytes Auto (Bld) [Pure # fraction] 3.7 E9/L Normal 2.0-7.5 [facility] Comment on above: Order Comment: Order Added by Discern Expert. Performed By: #### 1 1050147, 3801013, 8148918, 0353554 #### [facility] [address] [place] [address] CBC w/ Auto Diffon 3 Erythrocyte distribution width (RBC) [Ratio] 16.7 % High 10.9-14.2 [facility] Comment on above: Performed By: #### 1 3999374, 7686237, 1558862, 7252709 #### [facility] [address] [place] [address] Hematocrit (Bld) [Volume fraction] 24.3 % Low 37.7-49.0 [facility] Comment on above: Performed By: #### 1 5495107, 3838659, 5914105, 5335145 #### [facility] [address] [place] [address] Hemoglobin (Bld) [Mass/Vol] 8.0 g/dL Low 13.5-17.5 [facility] Comment on above: Performed By: #### 1 5432036, 4657159, 9644607, 9443201 #### [facility] [address] [place] [address] 18160 MCH (RBC) [Entitic mass] 29.7 pg Normal 27.0-34.0 [facility] Comment on above: Performed By: #### 1 6957307, 1669437, 6211649, 0716778 #### [facility] [address] [place] [address] MCHC (RBC) [Mass/Vol] 32.9 g/dL Normal 31.4-36.0 [facility] Comment on above: Performed By: #### 1 2281106, 5200058, 6218510, 1054123 #### [facility] [address] [place] [address]652 MCV (RBC) [Entitic vol] 90.1 fL Normal 80.0-100.0 [facility] Comment on above: Performed By: #### 1 5458631, 9142025, 2055358, 8320919 #### [facility] [address] [place] [address] Platelet mean volume (Bld) [Entitic vol] 7.9 fL Normal 6.4-10.8 [facility] Comment on above: Performed By: #### 1 1143513, 2019183, 2441120, 4825375 #### [facility] [address] [place] [address] Platelets (Bld) [#/Vol] 219.0 E9/L Normal 150.0-500. 0 [facility] Comment on above: Performed By: #### 1 2025492, 5009879, 9062802, 3150421 #### [facility] [address] [place] [address] RBC (Bld) [#/Vol] 2.7 E12/L Low 4.3-5.9 [facility] Comment on above: Performed By: #### 1 7215392, 1316727, 6991138, 0181848 #### [facility] [address] [place] [address] WBC corrected for nucl RBC Auto (Bld) [#/Vol] 5.5 E9/L Normal 4.0-11.0 [facility] Comment on above: Performed By: #### 1 2468540, 0915162, 3058753, 0843970 #### [facility] [address] [place] [address] CMPon 07-15-2022 Creatinine [Mass/Vol] 10.0 mg/dL Abnormal 0.5-1.3 [facility] Comment on above: Result Comment: Crit ical Result S_CREA:10.00 Called to HIRO VALERIO AT 3S by CATHY LERNER And Read Back For Confirmation at: 07/15/2022 10:15:30\Result S_CREA:10.00 Called to HIRO VALERIO AT 3S by CATHY LERNER And Read Back For Confirmation at: 07/15/2022 10:15:30\ATTEMPTED TO CALL RESULT X2\Critical Result verified by previous result Performed By: #### 1 7859204, 3476087, 2598116, 1617032 #### [facility] [address] [place] [address] Albumin [Mass/Vol] 2.2 g/dL Low 3.3-5.0 [facility] Comment on above: Performed By: #### 1 6664066, 6753727, 9982705, 2865178 #### [facility] [address] [place] [address] Albumin/Globulin (S) [Mass conc ratio] 0.7 Low 1.1-2.2 [facility] Comment on above: Performed By: #### 1 0947855, 9431156, 7067978, 6047603 #### [facility] [address] [place] [address] ALP [Catalytic activity/Vol] 39 Int._Unit/L Normal 21-98 [facility] Comment on above: Performed By: #### 1 0133815, 8991014, 2025861, 4238603 #### [facility] [address] [place] [address] ALT No additional P-5'-P [Catalytic activity/Vol] 17 Int._Unit/L Normal 6-46 [facility] Comment on above: Performed By: #### 1 2835516, 7896685, 2048577, 0726739 #### [facility] [address] [place] [address] Anion gap [Moles/Vol] 15 mmol/L Normal 6-16 [facility] Comment on above: Performed By: #### 1 7572893, 7766405, 0308194, 6775838 #### [facility] [address] [place] [address] AST [Catalytic activity/Vol] 47 Int._Unit/L High 5-43 [facility] Comment on above: Performed By: #### 1 2113334, 9326436, 6480927, 5144659 #### [facility] [address] [place] [address] Bilirubin [Mass/Vol] 0.8 mg/dL Normal 0.0-1.1 [facility] Comment on above: Performed By: #### 1 1617125, 3750312, 8526538, 2567589 #### [facility] [address] [place] [address] Calcium [Mass/Vol] 8.6 mg/dL Low 8.9-11.1 [facility] Comment on above: Performed By: #### 1 7846724, 2967509, 4555573, 1756816 #### [facility] [address] [place] [address] Chloride [Moles/Vol] 100 mmol/L Low 101-111 [facility] Comment on above: Performed By: #### 1 6246656, 2310514, 3194739, 0098991 #### [facility] [address] [place] [address] CO2 [Moles/Vol] 24 mmol/L Normal 21-31 [facility] Comment on above: Performed By: #### 1 7057202, 8701440, 6322248, 1774357 #### [facility] [address] [place] [address] Globulin (S) [Mass/Vol] 3.2 g/dL Normal 1.4-4.0 [facility] Comment on above: Performed By: #### 1 1258991, 5373847, 2185279, 6795756 #### [facility] [address] [place] [address] Glucose [Mass/Vol] 202 mg/dL High 55-199 [facility] Comment on above: Result Comment: If t his glucose result represents a fasting glucose, interpretation should refer to the following reference range: 55-99 mg/dL Performed By: #### 1 8238808, 9153340, 9933173, 0832336 #### [facility] [address] [place] [address] Potassium [Moles/Vol] 3.7 mmol/L Normal 3.5-5.3 [facility] Comment on above: Performed By: #### 1 4278808, 8734118, 8969017, 3848497 #### [facility] [address] [place] [address] Protein [Mass/Vol] 5.4 g/dL Low 6.0-7.8 [facility] Comment on above: Performed By: #### 1 9870236, 5382283, 3569525, 5524102 #### [facility] [address] [place] [address] Sodium [Moles/Vol] 135 mmol/L Normal 135-145 [facility] Comment on above: Performed By: #### 1 1899602, 9458653, 4285113, 4367757 #### [facility] [address] [place] [address] Urea nitrogen [Mass/Vol] 42 mg/dL High 5-21 [facility] Comment on above: Performed By: #### 1 9553452, 7078459, 3311212, 8104355 #### [facility] [address] [place] [address] Urea nitrogen/Creatinine [Mass ratio] 4 No Units Low 10-20 [facility] Comment on above: Performed By: #### 1 1382782, 1897238, 4290066, 3593777 #### [facility] [address] [place] [address] Capillary Glucose POCon 06-0 Glucose [Mass/Vol] 323 mg/dL High 55-99 [facility] Comment on above: Result Comment: Ambrocio ELIAS Performed By: #### 2 25808304 ####[facility] [address] [place] [address] Glucose [Mass/Vol] 297 mg/dL High 55-99 [facility] Comment on above: Performed By: #### 2 56462134 ####[facility] [address] [place] [address] Glucose [Mass/Vol] 244 mg/dL High 55-99 [facility] Comment on above: Result Comment: Ambrocio ELIAS Performed By: #### 2 34710676 ####[facility] [address] [place] [address] Glucose [Mass/Vol] 317 mg/dL High 55-99 [facility] Comment on above: Result Comment: Ambrocio ELIAS Performed By: #### 2 34494627 ####[facility] [address] [place] [address] Glucose [Mass/Vol] 171 mg/dL High 55-99 [facility] Comment on above: Result Comment: Ambrocio vargas RN/MD Performed By: #### 1 0496170, 6742066, 4802468, 5294003 #### [facility] [address] [place] [address] Hep Bs Agon 07-15-2022 HBV surface Ag IA Ql Negative Invalid Interpretation Code Negative [facility] Comment on above: Result Comment: Perf ormed at: [facility] [address] [id number] PhD Jany Aparicio Performed By: #### 1 7137563, 7592303, 7079241, 6856478 #### [facility] [address] [place] [address] Interdisciplinary Note - Paresh e Manageron 07-15-2022 Interdisciplinary Note - Licensed Funeral Director And Embalmer Pt is aware [facility] has accepted. Pt will see Vascular and ID this week. Ant dc TBD. 3MN was met today. CRM to follow. Normal [facility] Comment on above: Result Comment: Elec tronically Signed By: Sarah Tena\.br\Date and Time Signed: 07/15/22 11:25 EDT Monitor Recordon 07-15-2022 Monitor Record [id number]#1.00CD:127 Normal [facility] Monitor Record [id number]#1.00CD:127 Normal [facility] Monitor Record [id number]#1.00CD:127 Normal [facility] Monitor Record [id number]#[id number]:127 Normal [facility] eGFRon 07-15-2022 GFR/1.73 sq M.predicted among non-blacks MDRD (S/P/Bld) [Vol rate/Area] 5 mL/min/1.73 m2 Low >=59 [facility] Comment on above: Order Comment: Order Added by Discern Expert. Result Comment: Casino Manager jm kidney disease could be indicated at eGFR's of less than 60 mL/min/1.73m2. Kidney failure is indicated at less than 15 mL/min/1.73m2. Performed By: #### 1 7667020, 0276447, 6389941, 0040966 #### [facility] [address] [place] [address] Auto Diffon 07-14-2022 Basophils/100 WBC (Bld) 0.7 % Normal 0.0-2.0 [facility] Comment on above: Order Comment: Order Added by Discern Expert. Performed By: #### 1 9211721, 5707951, 1613883, 8663241 #### [facility] [address] [place] [address] Basophils/Leukocytes Auto (Bld) [Pure # fraction] 0.1 E9/L Normal 0.0-0.2 [facility] Comment on above: Order Comment: Order Added by Discern Expert. Performed By: #### 1 9143823, 2844249, 8097966, 8303717 #### [facility] [address] [place] [address] Eosinophils/100 WBC (Bld) 1.1 % Normal 0.0-8.0 [facility] Comment on above: Order Comment: Order Added by Discern Expert. Performed By: #### 1 8942578, 8346973, 4426785, 0048635 #### [facility] [address] [place] [address] Eosinophils/Leukocytes Auto (Bld) [Pure # fraction] 0.1 E9/L Normal 0.0-0.5 [facility] Comment on above: Order Comment: Order Added by Discern Expert. Performed By: #### 1 0878668, 2372790, 9069102, 0478756 #### [facility] [address] [place] [address] Lymphocytes/100 WBC (Bld) 1.7 % Low 14.0-50.0 [facility] Comment on above: Order Comment: Order Added by Discern Expert. Performed By: #### 1 3153765, 0506061, 0277584, 2852382 #### [facility] [address] [place] [address] Lymphocytes/Leukocytes Auto (Bld) [Pure # fraction] 0.2 E9/L Low 1.0-4.0 [facility] Comment on above: Order Comment: Order Added by Discern Expert. Performed By: #### 1 1789719, 0785509, 4096977, 1842038 #### [facility] [address] [place] [address] Monocytes/100 WBC (Bld) 6.3 % Normal 4.0-14.0 [facility] Comment on above: Order Comment: Order Added by Discern Expert. Performed By: #### 1 6232961, 9882955, 9239314, 4996848 #### [facility] [address] [place] [address] Monocytes/Leukocytes Auto (Bld) [Pure # fraction] 0.7 E9/L Normal 0.2-1.0 [facility] Comment on above: Order Comment: Order Added by Discern Expert. Performed By: #### 1 4590059, 8214326, 6998337, 5660502 #### [facility] [address] [place] [address] Neutrophils/100 WBC (Bld) 90.2 % High 36.0-75.0 [facility] Comment on above: Order Comment: Order Added by Cayla Expert. Performed By: #### 1 2632736, 5518579, 2295737, 1351070 #### [facility] [address] [place] [address] Neutrophils/Leukocytes Auto (Bld) [Pure # fraction] 9.9 E9/L High 2.0-7.5 [facility] Comment on above: Order Comment: Order Added by Cayla Expert. Performed By: #### 1 5009832, 4295037, 2678032, 3649689 #### [facility] [address] [place] [address] BMPon 07-14-2022 Creatinine [Mass/Vol] 7.2 mg/dL High 0.5-1.3 [facility] Comment on above: Performed By: #### 1 2789828, 0022239, 0466004, 8791771 #### [facility] [address] [facility] [place] [address] Anion gap [Moles/Vol] 15 mmol/L Normal 6-16 [facility] Comment on above: Performed By: #### 1 8307547, 1887524, 3799442, 8352898 #### [facility] [address] [facility] [place] [address] Calcium [Mass/Vol] 8.2 mg/dL Low 8.9-11.1 [facility] Comment on above: Performed By: #### 1 2661721, 1015363, 6817568, 2924140 #### [facility] [address] [facility] [place] [address] Chloride [Moles/Vol] 98 mmol/L Low 101-111 [facility] Comment on above: Performed By: #### 1 5233655, 6016107, 7713497, 1513621 #### [facility] [address] [facility] [place] [address] CO2 [Moles/Vol] 24 mmol/L Normal 21-31 [facility] Comment on above: Performed By: #### 1 4545112, 6740727, 8683779, 5689544 #### [facility] [address] [facility] [place] [address] Glucose [Mass/Vol] 190 mg/dL Normal 55-199 [facility] Comment on above: Result Comment: If t his glucose result represents a fasting glucose, interpretation should refer to the following reference range: 55-99 mg/dL Performed By: #### 1 7980437, 4901264, 4515874, 3020276 #### [facility] [address] [facility] [place] [address] Potassium [Moles/Vol] 3.7 mmol/L Normal 3.5-5.3 [facility] Comment on above: Performed By: #### 1 2349717, 9157012, 7004638, 7954208 #### [facility] [address] [facility] [place] [address] Sodium [Moles/Vol] 133 mmol/L Low 135-145 [facility] Comment on above: Performed By: #### 1 8625114, 6216136, 4185736, 6283463 #### [facility] [address] [place] [address] Urea nitrogen [Mass/Vol] 26 mg/dL High 5-21 [facility] Comment on above: Performed By: #### 1 5371546, 0905255, 3240070, 9675124 #### [facility] [address] [place] [address] Urea nitrogen/Creatinine [Mass ratio] 4 No Units Low 10-20 [facility] Comment on above: Performed By: #### 1 0405790, 4834818, 6913772, 6111427 #### [facility] [address] [place] [address] CBC w/ Auto Diffon 3 Erythrocyte distribution width (RBC) [Ratio] 17.1 % High 10.9-14.2 [facility] Comment on above: Performed By: #### 1 5044826, 0813239, 1574775, 0403571 #### [facility] [address] [place] [address] Hematocrit (Bld) [Volume fraction] 25.5 % Low 37.7-49.0 [facility] Comment on above: Performed By: #### 1 5688741, 5963788, 3830709, 5061172 #### [facility] [address] [place] [address] Hemoglobin (Bld) [Mass/Vol] 8.5 g/dL Low 13.5-17.5 [facility] Comment on above: Performed By: #### 1 6013597, 6556603, 5613849, 1011608 #### [facility] [address] [place] [address] MCH (RBC) [Entitic mass] 29.6 pg Normal 27.0-34.0 [facility] Comment on above: Performed By: #### 1 9940037, 2089866, 6299418, 0495597 #### [facility] [address] [place] [address] MCHC (RBC) [Mass/Vol] 33.2 g/dL Normal 31.4-36.0 [facility] Comment on above: Performed By: #### 1 0852088, 4346281, 2275102, 7109124 #### [facility] [address] [place] [address] MCV (RBC) [Entitic vol] 89.4 fL Normal 80.0-100.0 [facility] Comment on above: Performed By: #### 1 0636985, 0767758, 2166544, 8719822 #### [facility] [address] [place] [address] Platelet mean volume (Bld) [Entitic vol] 7.6 fL Normal 6.4-10.8 [facility] Comment on above: Performed By: #### 1 8924431, 2933279, 1472853, 7406537 #### [facility] [address] [place] [address] Platelets (Bld) [#/Vol] 219.0 E9/L Normal 150.0-500. 0 [facility] Comment on above: Performed By: #### 1 5239796, 3496776, 9591680, 7566627 #### [facility] [address] [place] [address] RBC (Bld) [#/Vol] 2.8 E12/L Low 4.3-5.9 [facility] Comment on above: Performed By: #### 1 1442186, 5895588, 4727452, 1653164 #### [facility] [address] [place] [address] WBC corrected for nucl RBC Auto (Bld) [#/Vol] 11.0 E9/L Normal 4.0-11.0 [facility] Comment on above: Performed By: #### 1 2225821, 4689069, 5438254, 9978133 #### [facility] [address] [place] [address] Capillary Glucose POCon - Glucose [Mass/Vol] 233 mg/dL High [address] Comment on above: Performed By: #### 2 65708347 ####[facility] [address] [place] [address] Glucose [Mass/Vol] 144 mg/dL High -[address] [place] [address] Comment on above: Result Comment: Ambrocio ELIAS Performed By: #### 1 2239286, 5158353, 9357884, 8996228 #### [facility] [address] [place] [address] Glucose [Mass/Vol] 202 mg/dL High [address] [place] [address] Comment on above: Result Comment: Ambrocio ELIAS Performed By: #### 2 523272, 29292274, 2728032 #### [facility] [address] [place] [address] Glucose [Mass/Vol] 180 mg/dL [address] Comment on above: Result Comment: Ambrocio ELIAS Performed By: #### 1 8513113, 7226417, 2722279, 1559848 #### [facility] [address] [place] [address] Lactic Acidon 07-14-2022 Lactate [Mass/Vol] 1.1 mmol/L Normal 0.5-2.2 [facility] Comment on above: Performed By: #### 1 3557365, 1938260, 2037990, 8898536 #### [facility] [address] [place] [address] Monitor Recordon 07-14-2022 Monitor Record [id number]:127 Normal [facility] Monitor Record [id number]#[id number]:127 Normal [facility] Monitor Record [id number]#[id number]:127 Normal [facility] Progress Note-Physicianon Progress Note-Physician Assessment/Plan [...] 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 This report was transcribed using voice recognition software. Every effort was made to ensure accuracy, however, inadvertently computerized producer director mistakes may be present. Subjective Pt seen [...] pg (0 (more content not included)... Normal [facility] Comment on above: Result Comment: Elec tronically Signed By: Vijaya SANDOVAL\.br\Date and Time Signed: 07/14/22 13:12 EDT\.br\Electronically Co-Signed By: Fuentes Rodriguez MD\.br\Date and Time Co-Signed: 07/14/22 14:51 EDT eGFRon 07-14-2022 GFR/1.73 sq M.predicted among non-blacks MDRD (S/P/Bld) [Vol rate/Area] 8 mL/min/1.73 m2 Low >=59 [facility] Comment on above: Order Comment: Order added by Discern Expert. Result Comment: Casino Manager jm kidney disease could be indicated at eGFR's of less than 60 mL/min/1.73m2. Kidney failure is indicated at less than 15 mL/min/1.73m2. Performed By: #### 1 9714943, 5113056, 6144330, 3760050 #### [facility] [address] [place] [address] BMPon 07-13-2022 Creatinine [Mass/Vol] 9.3 mg/dL Abnormal 0.5-1.3 [facility] Comment on above: Result Comment: Crit ical Result verified by repeat analysis\Critical Result S_CREA:9.30 Called to MARYURI MCKEON AT 3S by NEDA MACHUCA And Read Back For Confirmation at: 07/13/2022 06:50:42\Result S_CREA:9.30 Called to MARYURI MCKEON AT 3S by NEDA MACHUCA And Read Back For Confirmation at: 07/13/2022 06:50:42 Performed By: #### 2 011231, 64769148, 3799368 ####[facility] [address] [place] [address] Anion gap [Moles/Vol] 16 mmol/L Normal 6-16 [facility] Comment on above: Performed By: #### 2 290464, 99837536, 5929990 ####[facility] [address] [place] [address] Calcium [Mass/Vol] 8.9 mg/dL Normal 8.9-11.1 [facility] Comment on above: Performed By: #### 2 835854, 02007343, 5293817 ####[facility] [address] [place] [address] Chloride [Moles/Vol] 101 mmol/L Normal 101-111 [facility] Comment on above: Performed By: #### 2 615734, 58364973, 4880964 ####[facility] [address] [place] [address] CO2 [Moles/Vol] 23 mmol/L Normal 21-31 [facility] Comment on above: Performed By: #### 2 954399, 77125211, 9957797 ####[facility] [address] [place] [address] Glucose [Mass/Vol] 266 mg/dL High 55-199 [facility] Comment on above: Result Comment: If t his glucose result represents a fasting glucose, interpretation should refer to the following reference range: 55-99 mg/dL Performed By: #### 2 870216, 29223214, 8146843 ####[facility] [address] [place] [address] Potassium [Moles/Vol] 3.5 mmol/L Normal 3.5-5.3 [facility] Comment on above: Performed By: #### 2 860327, 51166364, 3708221 ####[facility] [address] [place] [address] Sodium [Moles/Vol] 136 mmol/L Normal 135-145 [facility] Comment on above: Performed By: #### 2 838175, 23163127, 5712946 ####[facility] [address] [place] [address] Urea nitrogen [Mass/Vol] 31 mg/dL High 5-21 [facility] Comment on above: Performed By: #### 2 514413, 35826526, 6632837 ####[facility] [address] [place] [address] Urea nitrogen/Creatinine [Mass ratio] 3 No Units Low 10-20 [facility] Comment on above: Performed By: #### 2 650848, 26913502, 0095006 ####[facility] [address] [place] [address] CRPon 07-13-2022 CRP [Mass/Vol] 8.9 mg/dL High <=1.9 [facility] Comment on above: Performed By: #### 1 6542062, 5716036, 6338138, 3438818 #### [facility] [address] [place] [address] Capillary Glucose POCon 06-0 Glucose [Mass/Vol] 256 mg/dL High 55-99 [facility] Comment on above: Result Comment: Ambrocio vargas RN/ Performed By: #### 2 567078, 40118915, 9838589 #### [facility] [address] [place] [address] Glucose [Mass/Vol] 268 mg/dL High 55-99 [facility] Comment on above: Performed By: #### 1 1086274, 8693857, 4738620, 3389459 #### [facility] [address] [place] [address] Glucose [Mass/Vol] 247 mg/dL High 55-99 [facility] Comment on above: Result Comment: Ambrocio vargas RN/ Performed By: #### 2 66239752 #### [facility] [address] [place] [address] Glucose [Mass/Vol] 279 mg/dL High 55-99 [facility] Comment on above: Result Comment: Ambrocio ELIAS Performed By: #### 2 72568818 ####[facility] [address] [place] [address] Consultation Noteon 07-14-19 Consultation Note Patient: LALY MURPHY Age: 66 years Sex: Male : 1955 Associated Diagnoses: None Author: Cristino Walker MD Chief Complaint 07/12/2022 14:28 EDT r/o infection of fistula 07/12/2022 13:24 EDT Inpatient F/U Interval History 66-year-old gentleman with end-stage kidney disease on hemodialysis Saturday at [facility] (follows with Dr. Nunez, Last dialyzed on [...] q12hr, # 20 cap(s), Refills(s) 0, Pharmacy: [facility]/pharmacy #[id number], 178, cm, 07/09/22 17:32:00 EDT, [...] Daily, Refills(s) (more content not included)... Normal [facility] Comment on above: Result Comment: Elec tronically Signed By: Aaron FISH, Cristino\.br\Date and Time Signed: 07/13/22 14:44 EDT Consultation Note Patient: LALY MURPHY Age: 66 years Sex: Male : 1955 Associated Diagnoses: None Author: Alfredo Acosta M.D Chief Complaint 07/12/2022 14:28 EDT r/o infection of fistula 07/12/2022 13:24 EDT Inpatient F/U History of Present Illness -Patient presented to [facility] as a direct admit at the request [...] segment elevation myocardial infarction / SNOMED CT 9659583582 / Confirmed Acute systolic heart failure / SNOMED CT 0970461311 / Confirmed At risk for falls / SNOMED CT 603837920 / Possible Problem added when Risk for Falls Careplan was initiated. Coronary arteriosclerosis / SNOMED CT 79484003 / Confirmed Coronary artery disease / SNOMED CT 35705219 / Confirmed Diabetes mellitus / SNOMED CT 255083747 / Confirmed Diabetes / SNOMED CT 728298111 / Confirmed Dyspnea / SNOMED CT 645990576 / Confirmed Dysuria / SNOMED CT 26022816 / Confirmed Edema of lower extremity / SNOMED CT 899474290 / Confirmed Electrocardiogram abnormal / SNOMED CT 4489063417 / Confirmed ESRD (end stage renal disease) on dialysis / SNOMED CT 923708130 / Confirmed Essential hypertension / SNOMED CT 43018042 / Confirmed Fatigue / SNOMED CT 354943033 / Confirmed Hyperlipidemia / SNOMED CT 88108109 / Confirmed Hypertension / SNOMED CT 4033072520 / Confirmed Hypothyroid / SNOMED CT 07372308 / Confirmed Impaired skin integrity / SNOMED CT 17570290 / Confirmed Problem added on documentation of skin impairments. Left ventricular hypertrophy / SNOMED CT 07521605 / Confirmed Neuropathy due to diabetes mellitus / SNOMED CT 1842328844 / Confirmed Pseudophakia / SNOMED CT 009197536 / Confirmed Apnea, sleep / SNOMED CT 955535685 / Confirmed Thrombophlebitis / SNOMED CT 607613765 / Confirmed Venous insufficiency of leg / SNOMED CT 921881326 / Confirmed Venous stasis ulcer of leg / SNOMED CT 9637645889 / Confirmed Histories Past Medical History: Resolved Anemia (392235992): Onset on 05/06/2018 at 62 years. Resolved. Congestive heart failure (72801371): Onset on 05/06/2018 at 62 years. Resolved. Hyperlipidemia (00324525): Onset on 05/06/2018 at 62 years. Resolved. Palpitations (472518332): Onset on 05/06/2018 at 62 years. Resolved. Thrombosis of superficial vein of lower limb (8062521958): Onset on 05/06/2018 at 62 years. Resolved. Family History: Diabetes mellitus type 2 Mother Heart failure Mother Primary malignant neoplasm of prostate Father Acute myocardial infarction Mother Hyperlipidemia Mother Procedure history: Insertion of hemodialysis catheter (8776970638) on 07/02/2022 at 66 Years. Fistulogram with contrast (2093430575) on 03/15/2022 at 66 Years. Fluoroscopic fistulogram with contrast (6715990865) on 11/02/2021 at 65 Years. Fistulogram with contrast (1012273080) on 08/04/2020 at 64 Years. Removal of catheter (584173114) on 07/07/2020 at 64 Years. Comments: 07/07/2020 11:09 EDT - Federico TORREZ, Ilene A removal of hemodialysis catheter PORTER USED CAR LOT (11396702) on 06/16/2020 at 64 Years. Comments: 06/16/2020 14:27 E (more content not included)... Normal [facility] Comment on above: Result Comment: Elec tronically Signed By: Alfredo Acosta M.D\.br\Date and Time Signed: 07/13/22 09:50 EDT Interdisciplinary Note - Paresh Fuenteson 07-13-2022 Interdisciplinary Note - Licensed Funeral Director And Embalmer Pt is awake and alert in bed previously rounded with Nathalie CARRERA. Pt is aware of plan to stay in hospital until at least Saturday to see Vascular. Pt is from home with and [place] will transport at [place]. Pt is currentwith HD at [facility] on Sat, Sat, Sat at noon. Inpateint status reviewed, Medicare rights reviewed, form signed and original provided to pt. . PCP verified and insurance information reviewed and DME discussed. Contact information provided and white board updated. [facility] Comment on above: Result Comment: Belkis [...] RN, Nathalie CARRERA Follow up: Yes Normal [facility] Lactic Acidon 07-13-2022 Lactate [Mass/Vol] 2.3 mmol/L High 0.5-2.2 [facility] Comment on above: Order Comment: Order added by EKS Rule. (FT_LACTIC_ACID_REFLEX) Adds reflex Lactic Acid 4 hours after initial if result is greater than or equal to 2.0. Performed By: #### 2 104577 ####[facility] [address] [place] [address] Lactate [Mass/Vol] 5.9 mmol/L Abnormal 0.5-2.2 [facility] Comment on above: Result Comment: Crit ical Result verified by repeat analysis\Critical Result S_LAC:5.9Called to STEVE ESTRELLA AT 3S by NEDA MACHUCA And Read Back For Confirmation at: 07/13/2022 12:52:22 Performed By: #### 1 5186512, 7206379, 0051679, 8823491 #### [facility] [address] [place] [address] Monitor Recordon 07-13-2022 Monitor Record [id number]#[id number]:127 Normal [facility] Monitor Record [id number]#[id number]:127 Normal [facility] Monitor Record [id number]#[id number]:127 Normal [facility] Progress Note - Pharmacyon 0 07-13-2022 [...] any questions, please contact the pharmacy at [phone]. Age: 66 Years Allergies: Brilinta; Coban Bandage [...] Lymph Auto: 11 % Low (07/12/22 16:34:00) [place] Auto: 13.7 % (07/12/22 16:34:00) Eos Auto: 1.5 % (07/12/22 16:34:00) Basophil Auto: 0.8 % (07/12/22 16:34:00) Neutro Absolute: 5.9 E9/L (07/12/22 16:34:00) Lymph Absolute: 0.9 E9/L Low (07/12/22 16:34:00) [place] Absolute: 1.1 E9/L High (07/12/22 16:34:00) Eos [...] mg/dL High (07/12/22 20:34:00) POC Device SN: [id number] (07/12/22 20:34:00) POC User ID: [id number] (07/12/22 20:34:00) POC Username: URBANO MOJICA (07/12/22 20:34:00) Normal [facility] Progress Note-Nurseon 2022 Progress Note-Nurse Tx tolerated well, hypotension at beginning of Tx, no other significant issues. 0L removed Pre wt 94 Post wt 95 Normal [facility] Progress Note-Physicianon Progress Note-Physician Assessment/Plan [...] artery disease (I25.10: Atherosclerotic heart disease of inupiat coronary artery without angina pectoris) -Aspirin, atorvastatin, [...] stage renal disease) On HD M/W/F at [facility] -Consult nephro - pending -BP is soft [...] deep vein thrombosis (DVT) prophylaxis (Z79.899: Other longterm (current) drug therapy) -Heparin sq with early [...] date (more content not included)... Normal [facility] Comment on above: Result Comment: Elec [...] MD Transcribed by: JASPREET Technologist: KR Normal [facility] Vanco Troughon 07-13-2022 VANCOMYCIN 50 microgram/mL Abnormal 10-20 [facility] Comment on above: Result Comment: Crit ical Result verified by repeat analysis\Critical Result S_VANC_T:50.0 Called to MARYURI MCKEON AT 3S by NEDA MACHUCA And Read Back For Confirmation at: 07/13/2022 06:49:48 Performed By: #### 2 349037, 57770560, 1245272 #### [facility] [address] [place] [address] WBCon 07-13-2022 WBC corrected for nucl RBC Auto (Bld) [#/Vol] 23.8 E9/L High 4.0-11.0 [facility] Comment on above: Performed By: #### 1 4010392, 5309585, 1787658, 1116405 #### [facility] [address] [place] [address] XR Chest 2 Viewson 3 XR Chest [...] mGy = na DAP = na Normal [facility] eGFRon 07-13-2022 GFR/1.73 sq M.predicted among non-blacks MDRD (S/P/Bld) [Vol rate/Area] 6 mL/min/1.73 m2 Low >=59 [facility] Comment on above: Order Comment: Order added by Discern Expert. Result Comment: Casino Manager jm kidney disease could be indicated at eGFR's of less than 60 mL/min/1.73m2. Kidney failure is indicated at less than 15 mL/min/1.73m2. Performed By: #### 2 739938, 41439675, 6986786 #### [facility] [address] [place] [address] Auto Diffon 07-12-2022 Basophils/100 WBC (Bld) 0.8 % Normal 0.0-2.0 [facility] Comment on above: Order Comment: Order Added by Discern Expert. Performed By: #### 1 4993134, 7541816, 6444193, 0007115 #### [facility] [address] [place] [address] Basophils/Leukocytes Auto (Bld) [Pure # fraction] 0.1 E9/L Normal 0.0-0.2 [facility] Comment on above: Order Comment: Order Added by Discern Expert. Performed By: #### 1 6444616, 2017683, 6166844, 5045683 #### [facility] [address] [place] [address] Eosinophils/100 WBC (Bld) 1.5 % Normal 0.0-8.0 [facility] Comment on above: Order Comment: Order Added by Discern Expert. Performed By: #### 1 8903537, 2969909, 1931998, 6418788 #### [facility] [address] [place] [address] Eosinophils/Leukocytes Auto (Bld) [Pure # fraction] 0.1 E9/L Normal 0.0-0.5 [facility] Comment on above: Order Comment: Order Added by Discern Expert. Performed By: #### 1 3796905, 3442460, 8174014, 0043900 #### [facility] [address] [place] [address] Lymphocytes/100 WBC (Bld) 11.0 % Low 14.0-50.0 [facility] Comment on above: Order Comment: Order Added by Discern Expert. Performed By: #### 1 7206545, 3703246, 0139651, 8600238 #### [facility] [address] [place] [address] Lymphocytes/Leukocytes Auto (Bld) [Pure # fraction] 0.9 E9/L Low 1.0-4.0 [facility] Comment on above: Order Comment: Order Added by Discern Expert. Performed By: #### 1 1072280, 1169900, 3805053, 1360898 #### [facility] [address] [place] [address] Monocytes/100 WBC (Bld) 13.7 % Normal 4.0-14.0 [facility] Comment on above: Order Comment: Order Added by Discern Expert. Performed By: #### 1 8061471, 8125049, 2635912, 7265089 #### [facility] [address] [place] [address] Monocytes/Leukocytes Auto (Bld) [Pure # fraction] 1.1 E9/L High 0.2-1.0 [facility] Comment on above: Order Comment: Order Added by Discern Expert. Performed By: #### 1 5127769, 9233497, 3623212, 9006131 #### [facility] [address] [place] [address] Neutrophils/100 WBC (Bld) 73.0 % Normal 36.0-75.0 [facility] Comment on above: Order Comment: Order Added by Discern Expert. Performed By: #### 1 6621689, 3954069, 2474580, 7416410 #### [facility] [address] [place] [address] Neutrophils/Leukocytes Auto (Bld) [Pure # fraction] 5.9 E9/L Normal 2.0-7.5 [facility] Comment on above: Order Comment: Order Added by Discern Expert. Performed By: #### 1 3423040, 9977180, 9278072, 8213509 #### [facility] [address] [place] [address] BMPon 07-12-2022 Creatinine [Mass/Vol] 7.6 mg/dL Abnormal 0.5-1.3 [facility] Comment on above: Result Comment: Crit ical Result verified by previous result\Critical Result verified by repeat analysis\Critical Result S_CREA:7.60 Called to JOHANNE BUNCH AT 3N by NOEL ORNELAS And Read Back For Confirmation at: 07/12/2022 16:57:45 Performed By: #### 1 1060908, 5072417, 5228773, 1427187 #### [facility] [address] [place] [address] Urea nitrogen [Mass/Vol] 26 mg/dL High 5-21 [facility] Comment on above: Performed By: #### 1 0426742, 5374066, 0585741, 5352216 #### [facility] [address] [place] [address] Urea nitrogen/Creatinine [Mass ratio] 3 No Units Low 10-20 [facility] Comment on above: Performed By: #### 1 [id number], 5475260, 3974570, 0259040 #### [facility] [address] [place] [address] Anion gap [Moles/Vol] 15 mmol/L Normal 6-16 [facility] Comment on above: Performed By: #### 1 2625435, 8431153, 2088226, 5649447 #### [facility] [address] [place] [address] Calcium [Mass/Vol] 9.2 mg/dL Normal 8.9-11.1 [facility] Comment on above: Performed By: #### 1 7408021, 1546174, 1392259, 8957233 #### [facility] [address] [place] [address] Chloride [Moles/Vol] 98 mmol/L Low 101-111 [facility] Comment on above: Performed By: #### 1 7546926, 0996221, 5308585, 7719178 #### [facility] [address] [place] [address] CO2 [Moles/Vol] 25 mmol/L Normal 21-31 [facility] Comment on above: Performed By: #### 1 2740506, 3439930, 1187022, 4746299 #### [facility] [address] [place] [address] Glucose [Mass/Vol] 203 mg/dL High 55-199 [facility] Comment on above: Result Comment: If t his glucose result represents a fasting glucose, interpretation should refer to the following reference range: 55-99 mg/dL Performed By: #### 1 2012373, 4744773, 3926823, 9499132 #### [facility] [address] [place] [address] Potassium [Moles/Vol] 4.2 mmol/L Normal 3.5-5.3 [facility] Comment on above: Performed By: #### 1 7130995, 2493892, 8566136, 4455645 #### [facility] [address] [place] [address] Sodium [Moles/Vol] 134 mmol/L Low 135-145 [facility] Comment on above: Performed By: #### 1 3877409, 7664098, 6904132, 5332880 #### [facility] [address] [place] [address] CBC w/ Auto Diffon 3 Erythrocyte distribution width (RBC) [Ratio] 16.8 % High 10.9-14.2 [facility] Comment on above: Performed By: #### 1 6037518, 4571241, 0309712, 6120402 #### [facility] [address] [place] [address] Hematocrit (Bld) [Volume fraction] 28.7 % Low 37.7-49.0 [facility] Comment on above: Performed By: #### 1 7872983, 9967595, 2687693, 3631794 #### [facility] [address] [place] [address] Hemoglobin (Bld) [Mass/Vol] 9.5 g/dL Low 13.5-17.5 [facility] Comment on above: Performed By: #### 1 5101433, 9620292, 3732272, 9572613 #### [facility] [address] [place] [address] MCH (RBC) [Entitic mass] 29.6 pg Normal 27.0-34.0 [facility] Comment on above: Performed By: #### 1 3409500, 0620012, 4536339, 4777260 #### [facility] [address] [place] [address] MCHC (RBC) [Mass/Vol] 33.1 g/dL Normal 31.4-36.0 [facility] Comment on above: Performed By: #### 1 9347420, 1972349, 2567037, 9387785 #### [facility] [address] [place] [address] MCV (RBC) [Entitic vol] 89.5 fL Normal 80.0-100.0 [facility] Comment on above: Performed By: #### 1 4373466, 8394316, 0618472, 5470059 #### [facility] [address] [place] [address] Platelet mean volume (Bld) [Entitic vol] 7.4 fL Normal 6.4-10.8 [facility] Comment on above: Performed By: #### 1 2640286, 7312257, 8464408, 6860100 #### [facility] [address] [place] [address] Platelets (Bld) [#/Vol] 284.0 E9/L Normal 150.0-500. 0 [facility] Comment on above: Performed By: #### 1 1934218, 3621911, 8183694, 8455814 #### [facility] [address] [place] [address] RBC (Bld) [#/Vol] 3.2 E12/L Low 4.3-5.9 [facility] Comment on above: Performed By: #### 1 1830787, 8308737, 5917761, 7137346 #### [facility] [address] [place] [address] WBC corrected for nucl RBC Auto (Bld) [#/Vol] 8.1 E9/L Normal 4.0-11.0 [facility] Comment on above: Performed By: #### 1 1336147, 6205067, 1387600, 7805308 #### [facility] [address] [place] [address] Capillary Glucose POCon Glucose [Mass/Vol] 287 mg/dL High 55-99 [facility] Comment on above: Result Comment: Ambrocio vargas RN/ Performed By: #### 1 2038284, 8397114, 6537495, 8066735 #### [facility] [address] [place] [address] Glucose [Mass/Vol] 191 mg/dL High 55-99 [facility] Comment on above: Result Comment: Ambrocio vargas RN/ Performed By: #### 1 1924410, 6463637, 3383657, 4160604 #### [facility] [address] [place] [address] Consent for Treatmenton Consent for Treatment [id number]#[id number]:127 Normal [facility] Consent for Treatment [id number]#1.00CD:127 Normal [facility] Heart and Vascular Office/Cl inic Noteon [...] with contrast (08/04/2020), Removal of catheter (07/07/2020), PORTER USED CAR LOT (06/16/2020), AV - Creation of arteriovenous fistula [...] History Alcohol (more content not included)... Normal [facility] Comment on above: Result Comment: [...] questions, please contact the pharmacy at extension 1982. Age: 66 Years Allergies: ALLERGIES Weight: Last [...] Lymph Auto: 11 % Low (07/12/22 16:34:00) [place] Auto: 13.7 % (07/12/22 16:34:00) Eos Auto: 1.5 % (07/12/22 16:34:00) Basophil Auto: 0.8 % (07/12/22 16:34:00) Neutro Absolute: 5.9 E9/L (07/12/22 16:34:00) Lymph Absolute: 0.9 E9/L Low (07/12/22 16:34:00) [place] Absolute: 1.1 E9/L High (07/12/22 16:34:00) Eos [...] mg/dL High (07/12/22 16:44:00) POC Device SN: [id number] (07/12/22 16:44:00) POC User ID: [id number] (07/12/22 16:44:00) POC Username: MIKEY CUEVAS (07/12/22 16:44:00) Normal [facility] eGFRon 07-12-2022 GFR/1.73 sq M.predicted among non-blacks MDRD (S/P/Bld) [Vol rate/Area] 7 mL/min/1.73 m2 Low >=59 [facility] Comment on above: Order Comment: Order added by Discern Expert. Result Comment: Casino Manager jm kidney disease could be indicated at eGFR's of less than 60 mL/min/1.73m2. Kidney failure is indicated at less than 15 mL/min/1.73m2. Performed By: #### 1 7663672, 8214504, 8966956, 8077774 #### [facility] [address] [place] [address] ED Note-Physicianon 07-12-19 ED Note-Physician Basic Information Time Seen: Zack Campos PA-C 07/09/2022 17:42 Chief Complaint L arm fistula issues for approx. 3 weeks. sent over after [facility] center spoke with Dr. Alarcon and [...] over after dialysis while he was at [facility]. Reports has been just constantly bleeding. He reports that the [facility] did speak with his vascular [...] and Complexity of Problems Differential Diagnosis: [] [facility] Data External documents reviewed: [] My [...] q12hr, # 20 cap(s), Refills(s) 0, Pharmacy: [facility][id number], 178, cm, 07/09/22 17:32:00 EDT, [...] Alarcon In 3 days 07/12/2022 EDT [address] [place] [address]- Business (1) Additional Instructions: Follow-up with Dr. Alarcon for further evaluation of your fistula. Nav Alejo In 3 days 07/12/2022 EDT [address] [place] [address] [place] [address]- Business (1) Additional Instructions: Follow-up with your primary ca (more content not included)... Normal [facility] Comment on above: Result Comment: Elec tronically Signed By: Zack Campos PA-C\.br\Date and Time Signed: 07/09/22 20:28 EDT\.br\Electronically Co-Signed By: Lenard Bernard, Adam Valero\.br\Date and Time Co-Signed: 07/11/22 07:12 EDT US AV Fistula/Lisa 2022 US AV Fistula/Graft Exam Date/Time: 07/09/2022 [...] Type of Fistula/Graft: brachiocephalic Laterality: Left. Normal [facility] US UE Venous Duplex Lefton 0 [...] (Electronic Signature): 07/10/2022 9:05 am Signed by: Tlyer Dominguez MD Transcribed by: JASPREET Technologist: FRANSISCA Normal [facility] Consent for Treatmenton 06-12 Consent for Treatment [id number]#1.00CD:127 Normal [facility] Discharge Instructionson Discharge Instructions [id number]#1.00CD:127 Normal [facility] ED Clinical Summaryon 2022 ED Clinical Summary (Inserted Image. Dejah ble to display) [address] [address] ED Clinical Summary Person Information [facility]: [facility] Age: 66 Years : 1955 Sex: Male Language: Chadian PCP: Nav Alejo MD Marital Status: Visit [...] 19:31:06 07/09/2022 19:31:06 07/09/2022 19:31:06 ADDRESS: [address] [facility] [id number] PHYS DOC NOTES: MEDICAL INFORMATION: Prescriptions Given: New Medications [id number], [address], [place] [id number], [phone] cephalexin (Keflex 500 mg Cap) 1 Capsules [...] Follow up: With: Address: When: Greg Alarcon [address] [place] [address] Business (1) In 3 days 07/12/2022 Comments: Follow-up with Dr. Alarcon for further evaluation of your fistula. With: Address: When: Nav Alejo [address] [place] [address] [place], [place] [id number] Business (1) In 3 days 07/12/2022 Comments: Follow-up with your primary care provider in 3 to 5 days. If symptoms worsen, do not improve, or new symptoms arise please report back to emergency department for further evaluation. DIAGNOSIS: Superficial thrombophlebitis Normal [facility] ED Patient Education Noteon 07-09-2022 ED [...] these instructions at home: Medicines ? Take qktu-snq-abyfquy and prescription medicines only as told by [...] cigarettes, chew (more content not included)... Normal [facility] ED Patient Summaryon 023 ED Patient Summary (Inserted Image. Dejah ble to display) [address] [address] Patient Discharge Instructions Person Information Name: SETH MURPHY Age: 66 Years Arrival Date: 07/09/2022 17:21:55 Discharge Diagnosis: Superficial thrombophlebitis Primary Care Physician: Nav Alejo MD Provider Information Primary Provider: Adam Weinberg M.D. Advanced Preform Machine Operator:None The exam and treatment you received in the Emergency Department were for an urgent problem and are not intended as complete care. It is important that you follow up with a doctor, nurse practitioner, or physician?s nurse practitioner physicians assistant for ongoing care. If your symptoms [...] Follow-up Instructions: With: Address: When: Greg Alarcon [address] [place], [place] [id number] [employer] (1) In 3 days 07/12/2022 Comments: Follow-up with Dr. Alarcon for further evaluation of your fistula. With: Address: When: Nav Alejo [address] [place] [address] [place] [id number] [employer] (1) In 3 days 07/12/2022 Comments: Follow-up [...] opioids can be used to help relieve vvjptufg-dq-samxsy pain and are often prescribed following a [...] flush the (more content not included)... Normal [facility] Cardiovascular Reporton 06-12 Cardiovascular Report [id number]#1.00CD:127 Normal [facility] Consent for Procedure/Surger yon 07-04-2022 Consent for Procedure/Surgery [id number]#1.00CD:127 Normal [facility] Consultation Noteon 07-05-19 Consultation Note Patient: LALY MURPHY Age: 66 years Sex: Male : 1955 Associated Diagnoses: None Author: Brian SHIN, Sarah gUalde Basic Information Requesting provider: hospitalist Reason for [...] EDT, 100 mL/hr, Infuse over 30 minute(s), rn production to CV doxazosin 2 mg Tab: 1 [...] R: Refills(s (more content not included)... Normal [facility] Comment on above: Result Comment: Elec tronically Signed By: Brian SHIN, Sarah [place]\.br\Date and Time Signed: 07/03/22 21:20 EDT\.br\Electronically Co-Signed By: Jatin Fournier MD\.br\Date and Time Co-Signed: 07/04/22 12:37 EDT Discharge Instructionson Discharge Instructions [id number]#1.00CD:127 Normal [facility] Progress Note-Nurseon 2022 Progress Note-Nurse [id number]#1.00CD:127 Normal [facility] Auto Diffon 07-03-2022 Basophils/100 WBC (Bld) 0.3 % Normal 0.0-2.0 [facility] Comment on above: Order Comment: Order Added by Discern Expert. Performed By: #### 2 093270, 6467245, 3343287, 24279216 ####[facility] [address] [place] [address] Basophils/Leukocytes Auto (Bld) [Pure # fraction] 0.0 E9/L Normal 0.0-0.2 [facility] Comment on above: Order Comment: Order Added by Discern Expert. Performed By: #### 2 612891, 2172352, 5699123, 25548745 ####[facility] [address] [place] [address] Eosinophils/100 WBC (Bld) 1.0 % Normal 0.0-8.0 [facility] Comment on above: Order Comment: Order Added by Discern Expert. Performed By: #### 2 385246, 7680289, 6651171, 62125444 ####[facility] [address] [place] [address] Eosinophils/Leukocytes Auto (Bld) [Pure # fraction] 0.1 E9/L Normal 0.0-0.5 [facility] Comment on above: Order Comment: Order Added by Cayla Expert. Performed By: #### 2 086350, 2106053, 0224395, 06684511 ####[address] [address] Lymphocytes/100 WBC (Bld) 9.1 % Low 14.0-50.0 [facility] Comment on above: Order Comment: Order Added by Cayla Expert. Performed By: #### 2 758151, 5231144, 3751755, 90811349 ####[address] [address] Lymphocytes/Leukocytes Auto (Bld) [Pure # fraction] 0.6 E9/L Low 1.0-4.0 [facility] Comment on above: Order Comment: Order Added by Discern Expert. Performed By: #### 2 554330, 9777081, 5301458, 34463470 ####[place] [address] [place] [address] Monocytes/100 WBC (Bld) 16.7 % High 4.0-14.0 [facility] Comment on above: Order Comment: Order Added by Cayla Expert. Performed By: #### 2 907658, 0374570, 9155822, 42501046 ####[facility] [address] [place] [address] Monocytes/Leukocytes Auto (Bld) [Pure # fraction] 1.2 E9/L High 0.2-1.0 [facility] Comment on above: Order Comment: Order Added by Discern Expert. Performed By: #### 2 482869, 1670487, 2900618, 95642754 ####[facility] [address] [place] [address] Neutrophils/100 WBC (Bld) 72.9 % Normal 36.0-75.0 [facility] Comment on above: Order Comment: Order Added by Discern Expert. Performed By: #### 2 681344, 2456794, 2152013, 63476927 ####[facility] [address] [place] [address] Neutrophils/Leukocytes Auto (Bld) [Pure # fraction] 5.2 E9/L Normal 2.0-7.5 [facility] Comment on above: Order Comment: Order Added by Discern Expert. Performed By: #### 2 306462, 7810074, 6636476, 53022868 ####[facility] [address] [place] [address] BMPon 07-03-2022 Anion gap [Moles/Vol] 19 mmol/L High 6-16 [facility] Comment on above: Performed By: #### 2 412815, 9757817, 4616854, 26780314 ####[facility] [address] [place] [address] Calcium [Mass/Vol] 8.3 mg/dL Low 8.9-11.1 [facility] Comment on above: Performed By: #### 2 029245, 8502908, 4748065, 71546051 ####[facility] [address] [place] [address] Chloride [Moles/Vol] 98 mmol/L Low 101-111 [facility] Comment on above: Performed By: #### 2 424042, 7318886, 5598380, 57115719 ####[facility] [address] [place] [address] CO2 [Moles/Vol] 23 mmol/L Normal 21-31 [facility] Comment on above: Performed By: #### 2 620427, 5498060, 8557207, 06864753 ####[facility] [address] [place] [address] Creatinine [Mass/Vol] 17.8 mg/dL Abnormal 0.5-1.3 [facility] Comment on above: Result Comment: Crit ical Result S_CREA:17.80 Called to BRADY SILVERMAN AT 3N by CATHY LERNER And Read Back For Confirmation at: 07/03/2022 07:23:33\Critical Result verified by previous result Performed By: #### 2 948330, 7488288, 7020360, 89889159 ####[facility] [address] [place] [address] Glucose [Mass/Vol] 226 mg/dL High 55-199 [facility] Comment on above: Result Comment: If t his glucose result represents a fasting glucose, interpretation should refer to the following reference range: 55-99 mg/dL Performed By: #### 2 864313, 9810857, 8574414, 30226261 ####[facility] [address] [place] [address] Potassium [Moles/Vol] 4.8 mmol/L Normal 3.5-5.3 [facility] Comment on above: Performed By: #### 2 395601, 3982485, 9917334, 52276899 ####[facility] [address] [place] [address] Sodium [Moles/Vol] 135 mmol/L Normal 135-145 [facility] Comment on above: Performed By: #### 2 392066, 1786383, 6829151, 61457116 ####[facility] [address] [place] [address] Urea nitrogen [Mass/Vol] 88 mg/dL Abnormal 5-21 [facility] Comment on above: Result Comment: Crit ical Result S_BUN:88 Called to BRADY SILVERMAN AT 3N by CATHY LERNER And Read Back For Confirmation at: 07/03/2022 07:23:33\Critical Result verified by previous result Performed By: #### 2 726845, 2174503, 2411631, 92499511 ####[facility] [address] [place] [address] Urea nitrogen/Creatinine [Mass ratio] 5 No Units Low 10-20 [facility] Comment on above: Performed By: #### 2 166926, 9340800, 5332799, 50586129 ####[address] [address] CBC w/ Auto Diffon 3 Erythrocyte distribution width (RBC) [Ratio] 17.0 % High 10.9-14.2 [facility] Comment on above: Performed By: #### 2 360523, 7150359, 7708935, 47873852 ####[address] [address] Hematocrit (Bld) [Volume fraction] 26.8 % Low 37.7-49.0 [facility] Comment on above: Performed By: #### 2 508370, 2721771, 2239033, 16127010 ####[address] [address] Hemoglobin (Bld) [Mass/Vol] 9.2 g/dL Low 13.5-17.5 [facility] Comment on above: Performed By: #### 2 958996, 8795076, 1713247, 31988345 ####[address] [address] MCH (RBC) [Entitic mass] 30.4 pg Normal 27.0-34.0 [facility] Comment on above: Performed By: #### 2 069648, 7404548, 9220212, 69561315 ####[facility] [address] [place] [address] MCHC (RBC) [Mass/Vol] 34.3 g/dL Normal 31.4-36.0 [facility] Comment on above: Performed By: #### 2 324923, 7244720, 0602707, 78170126 ####[facility] [address] [place] [address] MCV (RBC) [Entitic vol] 88.5 fL Normal 80.0-100.0 [facility] Comment on above: Performed By: #### 2 160737, 0024856, 7017911, 53703869 ####[address] [address] Platelet mean volume (Bld) [Entitic vol] 8.4 fL Normal 6.4-10.8 [facility] Comment on above: Performed By: #### 2 994674, 6720637, 2144384, 39425486 ####[address] [address] Platelets (Bld) [#/Vol] 155.0 E9/L Normal 150.0-500. 0 [facility] Comment on above: Performed By: #### 2 636000, 5938864, 1700705, 80892406 ####[address] [address] RBC (Bld) [#/Vol] 3.0 E12/L Low 4.3-5.9 [facility] Comment on above: Performed By: #### 2 096263, 6929280, 3615646, 59104436 ####[address] [address] WBC corrected for nucl RBC Auto (Bld) [#/Vol] 7.1 E9/L Normal 4.0-11.0 [facility] Comment on above: Result Comment: Slid e reviewed by BC. Performed By: #### 2 242871, 1672426, 5685194, 24416496 ####[place] [address] [place] [address] Capillary Glucose POCon 05 Glucose [Mass/Vol] 146 mg/dL High 55-99 [facility] Comment on above: Result Comment: Ambrocio ELIAS Performed By: #### 2 34972524 #### [facility] [address] [place] [address] Glucose [Mass/Vol] 158 mg/dL High 55-99 [facility] Comment on above: Result Comment: Ambrocio ELIAS Performed By: #### 2 19343363 #### [facility] [address] [place] [address] Cardiovascular Reporton 06-12 Cardiovascular Report [id number]#[id number]:127 Normal [facility] Discharge Note-Nursingon Discharge Note-Nursing SETH MURPHY [...] with contrast (08/04/2020), Removal of catheter (07/07/2020), PORTER USED CAR LOT (06/16/2020), AV - Creation of arteriovenous fistula [...] Pending Diagnostic Test Results None Pharmacy Information [facility] , Other: [facility] Previously Scheduled Follow-Up Appointments Saturday 10:00 AM EDT With: Dorian FISH, Greg Lopez Where[facility] New Follow Up Appointments after Discharge Follow Up with Greg Alarcon When: 08/06/2022 10:00 AM EDT Where: [address] [place] [address]- Business (1) Follow Up with Nav Alejo When: 07/13/2022 11:15 AM EDT Where: [address] [facility] [place] [address]- Business (1) Medications What How Much When [...] failure Coronary (more content not included)... Normal [facility] Inpatient Clinical Summaryon 07-03-2022 Inpatient Clinical Summary [address] [address] Clinical Summary Person Information: Name: SETH MURPHY Age: 66 Years : 1955 Sex: Male PCP: Nav Alejo MD Marital Status: Race: White Ethnicity: Non- or Language: Chadian Visit Id: Visit Reason: PERMACATH PLACEMENT FOR DIALYSIS Speciality: Acuity: Enc Type: Observation Med Service: Medical Arrival: 07/02/2022 12:21:12 Discharge: Dispo Type: Address: [address] [place] [id number] Provider Notes: Diagnosis: 1:ESRD on dialysis; 2:Diabetes; [...] Follow up: With: Address: When: Greg Alarcon [address] [place] [address] Business (1) Within 1 to 2 weeks With: Address: When: Nav Alejo [address] [place] [address] Business (1) Within 3 to 5 days Patient Education Information: CV - Cardiovascular Discharge Instructions (CUSTOM) [facility] Inpatient Patient Summaryon 07-03-2022 Inpatient Patient Summary [place] [address] Patient Discharge Instructions PERSON INFORMATION Name: SETH [...] Follow up: With: Address: When: Greg Alarcon [address] [place], [place] [phone] Business (1) Within 1 to 2 weeks With: Address: When: Nav Alejo [address] [place], [place] [phone] Business (1) Within 3 to 5 days [...] of Eva Comment: PATIENT EDUCATION INFORMATION Instructions: [place], [place] CARDIOVASCULAR DISCHARGE INSTRUCTIONS Diet: ? Resume pre-procedure diet. ? Inc (more content not included)... [facility] Interdisciplinary Note - Paresh e Manageron 07-03-2022 Interdisciplinary Note - Licensed Funeral Director And Embalmer Pt is asleep in bed, receiving dialysis at this time. Pt is from home with , previously rounded with Dr. Arauz and plan to DC home after dialysis. contact information provided and white board updated. CRM following. [facility] Comment on above: Result Comment: Elec tronically Signed By: Obie TORREZ, Alaina\.asael\Date and Time Signed: 07/03/22 10:14 EDT Monitor Recordon 07-03-2022 Monitor Record [id number]#[id number]:127 [facility] Monitor Record [id number]#1.00CD:127 [facility] Monitor Record [id number]#1.00CD:127 [facility] Monitor Record [id number]#1.00CD:127 [facility] Patient Education - Texton 0 07-03-2022 Patient Education - Text [place], [place] CARDIOVASCULAR DISCHARGE INSTRUCTIONS Diet: ? Resume [...] you are interested in smoking cessation, contact [facility] at [phone], ext. [phone]. ? In the event you are unable to reach your physician, please call [facility] at [phone] and the shaker plate operator will assist you. Seek Immediate Medical Care for: ? Bleeding: Apply continuous pressure to the site and Call 911. ? Should the arm or leg become cold, numb, blue or white call your physician immediately. ? Signs of infection are redness, warmth, swelling, increased tenderness, colored drainage, fever or chills ? 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 Normal [facility] Comment on above: Result Comment: Elec tronically Signed By: DAVONTE FISH, Pedro\.br\Date and Time Signed: 07/03/22 08:34 EDT eGFRon 07-03-2022 GFR/1.73 sq M.predicted among non-blacks MDRD (S/P/Bld) [Vol rate/Area] 3 mL/min/1.73 m2 Low >=59 [facility] Comment on above: Order Comment: Order added by Discern Expert. Result Comment: Casino Manager jm kidney disease could be indicated at eGFR's of less than 60 mL/min/1.73m2. Kidney failure is indicated at less than 15 mL/min/1.73m2. Performed By: #### 2 [id number], 0582891, [id number], [id number] ####[facility] [address] [place] [address] BMPon 07-02-2022 Creatinine [Mass/Vol] 16.8 mg/dL Abnormal 0.5-1.3 [facility] Comment on above: Result Comment: Crit ical Result S_CREA:16.80 Called to LINDY MELTON AT [facility] by CATHY LERNER And Read Back For Confirmation at: 07/02/2022 13:30:56\Critical Result verified by repeat analysis Performed By: #### 1 [id number], 8559835, 3922928, [id number] #### [facility] [address] [place] [address] Urea nitrogen [Mass/Vol] 78 mg/dL High 5-21 [facility] Comment on above: Performed By: #### 1 [id number], 3207732, 2576384, [id number] #### [facility] [address] [place] [address] Urea nitrogen/Creatinine [Mass ratio] 5 No Units Low 10-20 [facility] Comment on above: Performed By: #### 1 5781184, 9078433, 3363063, 0409806 #### [facility] [address] [place] [address] Anion gap [Moles/Vol] 22 mmol/L High 6-16 [facility] Comment on above: Performed By: #### 1 [id number], 8261859, 3305720, 9431543 #### [facility] [address] [place] [address] Calcium [Mass/Vol] 8.9 mg/dL Normal 8.9-11.1 [facility] Comment on above: Performed By: #### 1 [id number], 2797674, 9515655, 6844907 #### [facility] [address] [place] [address] Chloride [Moles/Vol] 96 mmol/L Low 101-111 [facility] Comment on above: Performed By: #### 1 8026605, 2166179, 5651384, 8459129 #### [facility] [address] [place] [address] CO2 [Moles/Vol] 21 mmol/L Normal 21-31 [facility] Comment on above: Performed By: #### 1 0561813, 9358850, 1305290, 5625709 #### [facility] [address] [place] [address] Glucose [Mass/Vol] 229 mg/dL High 55-199 [facility] Comment on above: Result Comment: If t his glucose result represents a fasting glucose, interpretation should refer to the following reference range: 55-99 mg/dL Performed By: #### 1 7330018, 8408182, 3893115, 9961795 #### [facility] [address] [place] [address] Potassium [Moles/Vol] 4.9 mmol/L Normal 3.5-5.3 [facility] Comment on above: Performed By: #### 1 7495691, 0041275, 6472216, 6440083 #### [facility] [address] [place] [address] Sodium [Moles/Vol] 134 mmol/L Low 135-145 [facility] Comment on above: Performed By: #### 1 9090792, 7869952, 9125514, 4641227 #### [facility] [address] [place] [address] Capillary Glucose POCon 06-12 Glucose [Mass/Vol] 253 mg/dL High 55-99 [facility] Comment on above: Performed By: #### 2 [id number] ####[facility] [address] [place] [address] Consent for Treatmenton 06-12 Consent for Treatment [id number]#[id number]:127 Normal [facility] Interdisciplinary Note - Bang singon 07-02-2022 Interdisciplinary Note - Nursing Called and spoke with Dr. Agudelo- patient's chrome tanning drum operator regarding his lab values. Patient has not have dialysis since last Saturday06/27/22. Patient is not in any acute distress, does not appear fluid-overloaded, and denies shortness of breath, however physician contacted regarding patient's critical labs. Patient is to report to [facility] tomorrow morning at 6:30 am. Patient and family member at bedside aware and agree with plan. Normal [facility] Monitor Recordon 07-02-2022 Monitor Record [id number]#[id number]:127 Normal [facility] Operative Reporton Operative Report SURGERY [...] complications. Greg Alarcon M.D. lr Dictated: 07/02/2022 [id number] Transcribed: 07/02/2022 [facility] Comment on above: Result Comment: Elec tronically Signed By: Dorian FISH, Greg Lopez\.br\Date and Time Signed: 07/02/22 15:32 EDT eGFRon 07-02-2022 GFR/1.73 sq M.predicted among non-blacks MDRD (S/P/Bld) [Vol rate/Area] 3 mL/min/1.73 m2 Low >=59 [facility] Comment on above: Order Comment: Order added by Discern Expert. Result Comment: Casino Manager jm kidney disease could be indicated at eGFR's of less than 60 mL/min/1.73m2. Kidney failure is indicated at less than 15 mL/min/1.73m2. Performed By: #### 1 [id number], 5463773, 3396343, 6518916 #### [facility] [address] [place] [address] Discharge Instructionson Discharge Instructions [id number]#[id number]:127 Normal [facility] BMPon 06-29-2022 Creatinine [Mass/Vol] 10.3 mg/dL Abnormal 0.5-1.3 [facility] Comment on above: Result Comment: Crit ical Result verified by repeat analysis\Critical Result S_CREA:10.30 Called to DOMINGO LANGE AT ER by NOEL ORNELAS And Read Back For Confirmation at: 06/29/2022 17:06:57 Performed By: #### 1 [id number], 0817889, 3316911, 6330904 #### [facility] [address] [place] [address] Urea nitrogen [Mass/Vol] 41 mg/dL High 5-21 [facility] Comment on above: Performed By: #### 1 6026093, 4840225, 9248323, 4027381 #### [facility] [address] [place] [address] Urea nitrogen/Creatinine [Mass ratio] 4 No Units Low 10-20 [facility] Comment on above: Performed By: #### 1 1434203, 8272939, 4645505, 4037012 #### [facility] [address] [place] [address] Anion gap [Moles/Vol] 16 mmol/L Normal 6-16 [facility] Comment on above: Performed By: #### 1 4318820, 0535308, 1982547, 3092691 #### [facility] [address] [place] [address] Calcium [Mass/Vol] 9.6 mg/dL Normal 8.9-11.1 [facility] Comment on above: Performed By: #### 1 6544354, 7575614, 2597233, 8168927 #### [facility] [address] [place] [address] Chloride [Moles/Vol] 98 mmol/L Low 101-111 [facility] Comment on above: Performed By: #### 1 6390911, 9362147, 2717486, 0262666 #### [facility] [address] [place] [address] CO2 [Moles/Vol] 25 mmol/L Normal 21-31 [facility] Comment on above: Performed By: #### 1 2757762, 7618978, 7996069, 8085386 #### [facility] [address] [place] [address] Glucose [Mass/Vol] 159 mg/dL Normal 55-199 [facility] Comment on above: Result Comment: If t his glucose result represents a fasting glucose, interpretation should refer to the following reference range: 55-99 mg/dL Performed By: #### 1 7833360, 2483651, 1848663, 5645861 #### [facility] [address] [place] [address] Potassium [Moles/Vol] 4.3 mmol/L Normal 3.5-5.3 [facility] Comment on above: Performed By: #### 1 7845527, 8214303, 7891180, 8977684 #### [facility] [address] [place] [address] Sodium [Moles/Vol] 135 mmol/L Normal 135-145 [facility] Comment on above: Performed By: #### 1 4217754, 2060414, 0194481, 7457510 #### [facility] [address] [place] [address] Consent for Treatmenton 06-11 Consent for Treatment [id number]#[id number]:127 Normal [facility] ED Clinical Summaryon 2022 ED Clinical Summary (Inserted Image. Dejah ble to display) [address] [address] ED Clinical Summary Person Information [facility]: [facility] Age[facility] 66 Years : 1955 Sex: Male Language: Chadian PCP: Nav Alejo MD Marital Status: Visit [...] 06/29/2022 19:18:57 06/29/2022 19:18:57 06/29/2022 19:18:57 ADDRESS: [address] [place] [id number] PHYS DOC NOTES: MEDICAL INFORMATION: Prescriptions Given: [...] up: With: Address: When: Greg Alarcon [address] [place] [id number] Business (1) In 3 days 07/02/2022 Comments: Call the office of Dr. Alarcon upon opening on Saturday to arrange for permacath dialysis catheter placement on Saturday morning. With: Address: When: G[address]NI [address] [place] [address] Business (1) In 3 days [...] reevaluation. With: Address: When: Nav Alejo [address], [place] [address] Business (1) In 3 days [...] DIAGNOSIS: Complication of AV dialysis fistula Normal [facility] ED Note-Physicianon 06-30-19 ED Note-Physician Basic Information Time Seen: Reji Azar DO 06/29/2022 15:56 Chief Complaint pt reports fistula in left arm is clotted off and not working. pt came from dialysis center in [place] History of Present Illness 66-year-old male to [...] Agudelo who is on-call for the patient's chrome tanning drum operator Dr. Nunez. He is okay with the [...] 3 days 07/02/2022 EDT [address] [place] [address]- Business (1) Additional Instructions: Call the office of Dr. Alarcon upon opening on Saturday to arrange for permacath dialysis catheter placement on Saturday morning. HILARIO NUNEZ In 3 days 07/02/2022 EDT [address] [place] [address]- Business (1) Additional Instructions: Call the office on Saturday and notify them of the issues with your fistula. Ask them to arrange dialysis for you on Saturday. Eat a low potassium diet. Limit your fluid intake. If you become short of breath or begin feeling unwell return to the ED immediately for reevaluation. Nav Alejo In 3 days 07/02/2022 EDT [address] [place] [place] [address] [place] [address]- Business (1) Additional Instructions: Call the office of your primary care doctor to arrange for follow-up within the above-stated timeframe. Follow-up with your primary care doctor about this ED visit. You should review your labs, imaging, and diagnoses from this ED visit with your primary care physician. There are occasionally non-emergent findings that requir (more content not included)... Normal [facility] Comment on above: Result Comment: [...] these instructions at home: Medicines ? Take cmxk-zkq-qolukeq and prescription medicines only as told by your health care provider. ? Ask your health care provider if the medicine prescribed to you can cause constipation. You may need to take these actions to prevent or treat constipation: ? Drink enough fluid to keep your urine pale yellow. ? Take xuwt-you-nkgnlgx or prescription medicines. ? Eat foods that [...] and water are not available, use hand christmas tree grader. ? Change your dressing as told by [...] provider. Document Revised: 09/07/2020 Document Reviewed: 09/07/2020 [employer] Patient Education ? 2022 [employer] Potassium Content of Foods Potassium is a mineral found in many foods and drinks. It can affect how the heart works, affect blood pressure, and keep fluids and electrolytes balanced in the body. It is important not to have too much potassium (hyperkalemia) or too little potassium (hypokalemia) in the body, especially in the blood. Potassium i (more content not included)... Normal [facility] ED Patient Summaryon 023 ED Patient Summary (Inserted Image. Dejah ble to display) [place] [id number] Patient Discharge Instructions Person Information Name: SETH MURPHY Age: 66 Years Arrival Date: 06/29/2022 15:44:02 Discharge Diagnosis: Complication of AV dialysis fistula Primary Care Physician: Nav Alejo MD Provider Information Primary Provider: Reji Azar DO Advanced Preform Machine Operator:None The exam and treatment you received in the Emergency Department were for an urgent problem and are not intended as complete care. It is important that you follow up with a doctor, nurse practitioner, or physician?s nurse practitioner physicians assistant for ongoing care. If your symptoms [...] Follow-up Instructions: With: Address: When: Greg Alarcon [address] [place], [place] [id number] Business (1) In 3 days 07/02/2022 Comments: Call the office of Dr. Alarcon upon opening on Saturday to arrange for permacath dialysis catheter placement on Saturday morning. With: Address: When: HILARIO NUNEZ [address] [place] [address], [place] [address] Business (1) In 3 days [...] reevaluation. With: Address: When: Nav Alejo [address] [facility] [address] Business (1) In 3 days [...] opioids can be used to help relieve hrbjndvd-vx-phsgmw pain and are often prescribed following a [...] Cognitive b (more content not included)... Normal [facility] US AV Fistula/[place] 2022 US AV Fistula/Graft Exam Date/Time: 06/29/2022 [...] of Fistula/Graft: left brachiocephalic Laterality: Left. Normal [facility] eGFRon 06-29-2022 GFR/1.73 sq M.predicted among non-blacks MDRD (S/P/Bld) [Vol rate/Area] 5 mL/min/1.73 m2 Low >=59 [facility] Comment on above: Order Comment: Order added by Discern Expert. Result Comment: Casino Manager jm kidney disease could be indicated at eGFR's of less than 60 mL/min/1.73m2. Kidney failure is indicated at less than 15 mL/min/1.73m2. Performed By: #### 1 [id number], 5942714, 7409917, 9207142 #### [facility] [address] [place] [address] Progress Noteson 05-17-2022 Snapper On Authentication Interface Message Text EMERGENCY TRIAGE, TREAT AND TRANSPORT (ET3) DOCUMENTATION OF TELEHEALTH VISIT Date / Time: 05/16/20221754 Name: Dedrick Murphy : 1955 SSN: (Not on file) EMS Agency: [facility] [] Verbal consent obtained [x] Implied [...] Completed by: Guicho Angelo DO Normal [facility] SYMPTOMATIC COVID-19 ANTIGEN on 05-09-2022 EUA Statement SEE BELOW Normal [facility] Comment on above: Result Comment: This test [...] sooner. Performed By: #### C VDAGS #### [facility] [address] [place] [address] Dr. Radha Edward SARS-CoV-2 (COVID-19) RNA IRNEE+probe Ql (Unsp spec) Positive Abnormal NEGATIVE [facility] Comment on above: Performed By: #### C VDAGS #### [facility] [address] [place] [address] Dr. Radha Edward CHEMISTRYOrdered By: SYSTEM SYSTEM [...] 8 mL/min/1.73 m2 Low >=59mL/min /1.73 m2 [facility] Chem S Glucose [Mass/Vol] 198 mg/dL Normal [...] 7.5 E9/L [facility] HEMATOLOGYOrdered By: Nando Casanoav on 03-15-2022 Erythrocyte distribution width (RBC) [Ratio] [...] NATHEN LUCIA Date: 2022-02-15 11:42 Normal [facility] CULTURE WOUNDon 01-15-2022 CULTURE WOUND Culture Observations [...] Trimethoprim/Sulfamethoxaz ole <=20 S F Normal [facility] Comment on above: Performed By: #### W OUNDCX #### [facility] [address] [place], [place] [address] Dr. 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 Normal [facility] Tobacco Screening.on 022 Fall risk assessment a) No falls within the last year [facility] [place] [place] [address] DO Work Phone: Tobacco use status CP b) No [facility] [employer] [place] [address] DO Work Phone: CBC AUTO DIFFon 08-28-2021 BASO # 0.0 103/ul Normal 0.0-0.1 [facility] Comment on above: Performed By: #### C BC #### [facility] [address] [place] [address] [address] Radha Edward Basophils/100 WBC (Bld) 0.6 % Normal 0.2-2.0 [facility] Comment on above: Performed By: #### C BC #### [facility] [address] [place] [address] [address] Radha Edward EO # 0.1 103/ul Normal 0.0-0.7 [facility] Comment on above: Performed By: #### C BC #### [facility] [address] [place] [address] Dr. Radha Edward Eosinophils/100 WBC (Bld) 1.7 % Normal 0.9-7.0 [facility] Comment on above: Performed By: #### C BC #### [facility] [address] [place] [address] Dr. Radha Edward Erythrocyte distribution width (RBC) [Ratio] 14.5 % Normal 11.0-15.0 [facility] Comment on above: Performed By: #### C BC #### [facility] [address] [place] [address] Dr. Radha Edward Hematocrit (Bld) [Volume fraction] 34.0 % Critically low 42.0-54.0 [facility] Comment on above: Performed By: #### C BC #### [facility] [address] [place] [address] Dr. Radha Edward Hemoglobin (Bld) [Mass/Vol] 11.1 g/dL Critically low 14.0-18.0 [facility] Comment on above: Performed By: #### C BC #### [facility] [address] [place] [address] Dr. Radha Edward IG # 0.02 10e3/ul Normal 0.00-0.03 [facility] Comment on above: Performed By: #### C BC #### [facility] [address] [place] [address] Dr. Radha Edward IG % 0.4 % Normal 0.0-0.5 [facility] Comment on above: Performed By: #### C BC #### [facility] [address] [place] [address] Dr. Radha Edward LYMPH # 1.0 103/ul Critically low 1.2-3.8 [facility] Comment on above: Performed By: #### C BC #### [facility] [address] [place] [address] Dr. Radha Edward Lymphocytes/100 WBC (Bld) 18.6 % Critically low 20.5-60.0 [facility] Comment on above: Performed By: #### C BC #### [facility] [address] [place] [address] Dr. Radha Edward MANUAL DIFF REQ NO Normal [facility] Comment on above: Performed By: #### C BC #### [facility] [address] [place] [address] Dr. Radha Edward MCH (RBC) [Entitic mass] 30.5 pg Normal 25.9-34.0 [facility] Comment on above: Performed By: #### C BC #### [facility] [address] [place] [address] Dr. Radha Edward MCHC (RBC) [Mass/Vol] 32.6 g/dL Normal 29.9-35.2 [facility] Comment on above: Performed By: #### C BC #### [facility] [address] [place] [address] Dr. Radha Edward MCV (RBC) [Entitic vol] 93.4 fL Normal 80.0-94.0 [facility] Comment on above: Performed By: #### C BC #### [facility] [address] [place] [address] Dr. Radha Edward MONO # 0.8 103/ul Normal 0.3-0.8 [facility] Comment on above: Performed By: #### C BC #### [facility] [address] [place] [address] Dr. Radha Edward Monocytes/100 WBC (Bld) 15.1 % Critically high 1.7-12.0 [facility] Comment on above: Performed By: #### C BC #### [facility] [address] [place] [address] Dr. Radha Edward NEUT # 3.5 103/ul Normal 1.4-6.5 [facility] Comment on above: Performed By: #### C BC #### [facility] [address] [place] [address] Dr. Radha Edward Neutrophils/100 WBC (Bld) 63.6 % Normal 43.0-75.0 [facility] Comment on above: Performed By: #### C BC #### [facility] [address] [place] [address] Dr. Radha Edward Platelet mean volume (Bld) [Entitic vol] 9.8 fL Normal 9.5-13.5 [facility] Comment on above: Performed By: #### C BC #### [facility] [address] [place] [address] [address] Radha Edward PLT 156 103/ul Normal 150-450 [facility] Comment on above: Performed By: #### C BC #### [facility] [address] [place] [address] Dr. Radha Edward RBC 3.64 106/ul Critically low 4.70-6.10 [facility] Comment on above: Performed By: #### C BC #### [facility] [address] [place] [address] Dr. Radha Edward WBC 5.4 103/ul Normal 4.0-11.0 [facility] Comment on above: Performed By: #### C BC #### [facility] [address] [place] [address] Dr. Radha Edward PROF 14(COMP METB)on 022 Albumin [Mass/Vol] 3.6 g/dL Normal 3.4-5.0 [facility] Comment on above: Performed By: #### C MP, TSH, HSTROPN #### [facility] [address] [place] [address] Dr. Radha Edward Albumin/Globulin [Mass ratio] 0.9 {ratio} Normal [facility] Comment on above: Performed By: #### C MP, TSH, HSTROPN #### [facility] [address] [place] [address] Dr. Radha Edward ALP [Catalytic activity/Vol] 135 U/L Critically high 46-116 [facility] Comment on above: Performed By: #### C MP, TSH, HSTROPN #### [facility] [address] [place] [address] Dr. Radha Edward ALT [Catalytic activity/Vol] 21 U/L Normal 16-63 [facility] Comment on above: Performed By: #### C MP, TSH, HSTROPN #### [facility] [address] [place] [address] [address] Radha Edward Anion gap [Moles/Vol] 13.6 mmol/L Normal [facility] Comment on above: Performed By: #### C MP, TSH, HSTROPN #### [facility] [address] [place] [address] [address] Radha Edward AST [Catalytic activity/Vol] 14 U/L Critically low 15-37 [facility] Comment on above: Performed By: #### C MP, TSH, HSTROPN #### [facility] [address] [place] [address] [address] Radha Edward Bilirubin [Mass/Vol] 0.6 mg/dL Normal 0.2-1.0 [facility] Comment on above: Performed By: #### C MP, TSH, HSTROPN #### [facility] [address] [place] [address] Dr. Radha Edward Calcium [Mass/Vol] 9.1 mg/dL Normal 8.5-10.1 [facility] Comment on above: Performed By: #### C MP, TSH, HSTROPN #### [facility] [address] [place] [address] [address] Radha Edward Chloride [Moles/Vol] 95 mmol/L Critically low 98-107 [facility] Comment on above: Performed By: #### C MP, TSH, HSTROPN #### [facility] [address] [place] [address] [address] Radha Edward CO2 [Moles/Vol] 29.8 mmol/L Normal 21.0-32.0 [facility] Comment on above: Performed By: #### C MP, TSH, HSTROPN #### [facility] [address] [address] [address] Radha Edward Creatinine [Mass/Vol] 5.55 mg/dL Critically high 0.70-1.30 [facility] Comment on above: Performed By: #### C MP, TSH, HSTROPN #### [facility] [address] [place] [address] Dr. Radha Edward EGFR-AF TAIWANESE 13 mL/min/1.73m2 Critically low >=60 [facility] Comment on above: Performed By: #### C MP, TSH, HSTROPN #### [facility] [address] [place] [address] Dr. Radha Edward EGFR-NON AF TAIWANESE 10 mL/min/1.73m2 Critically low >=60 [facility] Comment on above: Performed By: #### C MP, TSH, HSTROPN #### [facility] [address] [place] [address] Dr. Radha Edward Globulin (S) [Mass/Vol] 3.9 g/dL Normal [facility] Comment on above: Performed By: #### C MP, TSH, HSTROPN #### [facility] [address] [place] [address] Dr. Radha Edward Glucose [Mass/Vol] 164 mg/dL Critically high 74-106 T [facility] Comment on above: Performed By: #### C MP, TSH, HSTROPN #### [facility] [address] [place] [address] Dr. Radha Edward Potassium [Moles/Vol] 3.4 mmol/L Critically low 3.5-5.1 [facility] Comment on above: Performed By: #### C MP, TSH, HSTROPN #### [facility] [address] [place] [address] Dr. Radha Edward Protein [Mass/Vol] 7.5 g/dL Normal 6.4-8.2 [facility] Comment on above: Performed By: #### C MP, TSH, HSTROPN #### [facility] [address] [place] [address] Dr. Radha Edward Sodium [Moles/Vol] 135 mmol/L Critically low 136-145 Th [facility] Comment on above: Performed By: #### C MP, TSH, HSTROPN #### [facility] [address] [place] [address] Dr. Radha Edward Urea nitrogen [Mass/Vol] 13.0 mg/dL Normal 7.0-18.0 [facility] Comment on above: Performed By: #### C MP, TSH, HSTROPN #### [facility] [address] [address] [address] Radha Edward Urea nitrogen/Creatinine [Mass ratio] 2.3 mg/mg Normal [facility] Comment on above: Performed By: #### C MP, TSH, HSTROPN #### [facility] [address] [address] [address] Radha Edward TROPONIN, HIGH SENSITIVITYon 08-28-2021 HSTROP 11.8 pg/mL Normal 4.0-76.1 [facility] Comment on above: Result Comment: CUT- OFF POINTS HAVE BEEN ESTABLISHED BASED ON THE FOURTH UNIVERSAL DEFINITIONS OF MYOCARDIAL INFARCTION. THE UPPER REFERENCE LIMIT (URL) OF TROPONIN, DEFINED THE 99TH PERCENTILE OF cTnI DISTRIBUTION IN A REFERENCE POPULATION, HAS BEEN CONFIRMED THE DECISION THRESHOLD FOR MS DIAGNOSIS. Performed By: #### C MP, TSH, HSTROPN #### [facility] [address] [address] [address] Radha Edward TSHon 08-28-2021 TSH 0.749 uIU/mL Normal 0.358-3.74 0 [facility] Comment on above: Performed By: #### C MP, TSH, HSTROPN #### [facility] [address] [address] [address] Radha Edward XR CHEST 1 Von 08-28-2021 XR CHEST 1 V CHEST X-RAY, 1 VIEW HISTORY: Bradycardia. Chest pain. COMPARISON: 09/01/2019. FINDINGS: The cardiac silhouette is enlarged. Left hemidiaphragm is elevated. The lungs are grossly clear. There are no pleural effusions. There is no pneumothorax. IMPRESSION: No evidence of acute cardiopulmonary disease. Electronically authenticated by: CHRISTIANNE MELVIN Date: 2021-08-28 18:59 Normal [facility] Office Visit (Cardiology)on 07-13-2021 Follow-up visit Diagnoses/Problems [...] COVID illness in 2019. He underwent anterior MS with PCI chronic total occlusion of the proximal through mid LAD x2 drug-eluting stents in March 2018; follow-up echocardiogram revealed low normal left ventricular function with ejection fraction of 50% in September 2018. In March 2020 he underwent COVID infection with prolonged intubation and hospitalization in [place] with multiorgan failure details of which have [...] Heparin (Porcine) in NaCl 1000-0.9 UT/500ML-% Intravenous [id number] unitts every dialysis loading dose hydrALAZINE HCl [...] Recorded: 13Jul2021 11:47AM Heart Rate66, R Radial Oztpqabk024, RUE, Sitting Rcnnlfhmw81, RUE, Sitting Height5 ft 10 in Rilhkb048 lb BMI Ybudypcflr21.14 kg/m2 BSA Calculated2.19 Tobacco Useb) No PHQ-2 [...] Screening.on 022 Adult depression screening assessment No [facility] [address] DO Work Phone: Fall risk assessment a) No falls within the last year -[facility] [address] DO Work Phone: Tobacco use status [facility]PH[facility] b) No [facility] [address] DO Work Phone: Echocardiogramon 10-20-[address], [address] [place] [address] TRANSTHORACIC ECHOCARDIOGRAM REPORT Patient Name: SETH Bowers Physician: [id number] Alfredo Saravia DO Study Date: 10/20/2020 Referring [id number] SETH YING Physician: MRN/PID: [id number] PCP: Nav Alejo Accession/Order#: [id number] Department [facility] Location: [place] Date of : 1955 Fellow: Gender: M Nurse: Admit Date: Head Sawyer Automatic: Deena Adams RDCS, RVT Height: 177.80 cm CC Report to: Marina Agudelo Weight: 103.42 kg Study Type: Echocardiogram BSA: 2.21 m2 Diagnosis/ICD: 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 Author Type: Physician Lumber Chain Offbearer Type: Progress Notes Filed: 08/28/2019 10:29 AM Note Text: [facility] NOTE NAME: CHRISTY MURPHY NO.: [id number] DATE OF SERVICE: 08/27/2019 [facility] DATE OF : 1955 CHIEF COMPLAINT: Followup for discharge. SUBJECTIVE FINDINGS: The patient was seen in his room at [facility] lying in bed. I remained greater [...] DICTATED BY: Diane Lerner PA-C PG/Meagan JOB# [id number] cc:[facility] Normal [facility] PROGRESSon 08-07-2019 PROGRESS HNO ID: [id number] Author: Diane Lerner (Pa) Service: ? Author Type: Physician Lumber Chain Offbearer Type: Progress Notes Filed: 08/11/2019 6:39 AM Note Text: [facility] NOTE NAME: CHRISTY MURPHY NO.: [id number] DATE OF SERVICE: 08/07/2019 [facility] DATE OF : 1955 RESIDENTIAL CHART VISIT NOTE CHIEF COMPLAINT: Followup for end-stage renal disease, weakness, and other medical issues. SUBJECTIVE FINDINGS: The patient was seen in his room at [facility] lying in bed. I remained greater [...] any bowel issues. MEDICATIONS: Reviewed in the retirement record. CODE STATUS: Full code. PHYSICAL EXAMINATION: [...] DICTATED BY: Diane Lerner PA-C PG/Meagan JOB# [id number] cc:[facility] Normal [facility] PROGRESSon 07-29-2019 PROGRESS HNO ID: [id number] Author: Diane Lerner (Pa) Service: ? Author Type: Physician Lumber Chain Offbearer Type: Progress Notes Filed: 07/30/2019 12:39 PM Note Text: [facility] NOTE NAME: CHRISTY MURPHY NO.: [id number] DATE OF SERVICE: 07/29/2019 [facility] DATE OF : 1955 CHIEF COMPLAINT: Follow up for end-stage renal disease, weakness, and other medical issues. SUBJECTIVE FINDINGS: The patient was seen in his room at [facility] sitting up in his wheelchair. I [...] SYSTEMS: See above. MEDICATIONS: Reviewed in the retirement record. CODE STATUS: Full code. PHYSICAL EXAMINATION: [...] DICTATED BY: Diane Lerner PA-C PG/Meagan JOB# [id number] cc:[facility] Normal [facility] PROGRESSon 07-27-2019 PROGRESS HNO ID: [id number] Author: Saad Ahumada Service: ? Author Type: Physician Type: Progress Notes Filed: 07/29/2019 5:29 PM Note Text: [facility] NOTE NAME: CHRISTY MURPHY NO.: [id number] DATE OF SERVICE: 07/27/2019 [facility] DATE [...] family. DICTATED BY: MD FLAKITO White/Meagan JOB# [id number] cc:[facility] Normal [facility] PROGRESSon 07-16-2019 PROGRESS HNO ID: [id number] Author: Diane Chacon) Abdullahi Service: ? Author Type: Physician Lumber Chain Offbearer Type: Progress Notes Filed: 07/17/2019 11:59 AM Note Text: [facility] NOTE NAME: CHRISTY MURPHY NO.: [id number] DATE OF SERVICE: 07/16/2019 [facility] DATE OF : 1955 RESIDENTIAL CHART VISIT NOTE CHIEF COMPLAINT: Followup for potential discharge. SUBJECTIVE FINDINGS: The patient was seen in his room at [facility] sitting up in his wheelchair. I [...] Have asked our staff to contact his slip filler's office to clarify his aspirin dose. 3. [...] DICTATED BY: Diane Lerner PA-C PG/Acjanis JOB# [id number] cc:[facility] Normal [facility] PROGRESSon 07-13-2019 PROGRESS HNO ID: [id number] Author: Diane Lerner (Pa) Service: ? Author Type: Physician Lumber Chain Offbearer Type: Progress Notes Filed: 07/14/2019 2:18 PM Note Text: [facility] NOTE NAME: CHRISTY MURPHY NO.: [id number] DATE OF SERVICE: 07/13/2019 [facility] DATE OF : 1955 RESIDENTIAL CHART VISIT NOTE CHIEF COMPLAINT: Skilled followup visit for end-stage renal disease, coronary artery disease, and other medical issues. SUBJECTIVE FINDINGS: The patient was seen in his room at [facility] for a skilled followup visit. I [...] SYSTEMS: See above. MEDICATIONS: Reviewed in the retirement record. CODE STATUS: Full code. PHYSICAL EXAMINATION: [...] We will ask staff to contact his slip filler's office to clarify the aspirin dose. 3. [...] DICTATED BY: Diane Lerner PA-C PG/Meagan JOB# [id number] cc:[facility] Normal [facility] PROGRESSon 07-09-2019 PROGRESS HNO ID: [id number] Author: Diane Lerner (Pa) Service: ? Author Type: Physician Lumber Chain Offbearer Type: Progress Notes Filed: 07/13/2019 10:19 AM Note Text: [facility] NOTE NAME: CHRISTY MURPHY NO.: [id number] DATE OF SERVICE: 07/09/2019 [facility] DATE OF : 1955 CHIEF COMPLAINT: Skilled followup visit for coronary artery disease, renal disease, and other medical issues. SUBJECTIVE FINDINGS: The patient was seen in his room at [facility] for skilled followup visit. I remained greater than 6 feet away from him for the evaluation due to the COVID-19 pandemic. The patient had been refusing heparin as he related that this was uncomfortable and that he was bleeding after administration. He is on longstanding Effient as ordered by Cardiology and has a history of stents. He follows with Dr. Ying in [place]. In addition, his current aspirin dose is [...] Please see above. MEDICATIONS: Reviewed in the retirement record. CODE STATUS: Full code. PHYSICAL EXAMINATION: [...] DICTATED BY: Diane Lerner PA-C PG/Meagan JOB# [id number] cc:[facility] Normal [facility] PROGRESSon 07-01-2019 PROGRESS HNO ID: [id number] Author: Diane Lerner (Pa) Service: ? Author Type: Physician Lumber Chain Offbearer Type: Progress Notes Filed: 07/03/2019 7:47 AM Note Text: [facility] NOTE NAME: CHRISTY MURPHY NO.: [id number] DATE OF SERVICE: 07/01/2019 [facility] DATE OF : 1955 RESIDENTIAL CHART VISIT NOTE CHIEF COMPLAINT: Venous stasis of the legs, weakness, and other medical issues. SUBJECTIVE FINDINGS: The patient was seen in his room at [facility] for skilled followup visit. I remained [...] SYSTEMS: See above. MEDICATIONS: Reviewed in the retirement record. CODE STATUS: Full code. PHYSICAL EXAMINATION: [...] DICTATED BY: Diane Lerner PA-C PG/Meagan JOB# [id number] cc:[facility] Normal [facility] PROGRESSon 06-26-2019 PROGRESS HNO ID: [id number] Author: Diane Lerner (Pa) Service: ? Author Type: Physician Lumber Chain Offbearer Type: Progress Notes Filed: 06/29/2019 12:17 PM Note Text: [facility] NOTE NAME: CHRISTY MURPHY NO.: [id number] DATE OF SERVICE: 06/26/2019 [facility] DATE OF : 1955 RESIDENTIAL CHART VISIT NOTE CHIEF COMPLAINT: Followup for renal disease, type 2 diabetes mellitus, and other medical issues. SUBJECTIVE FINDINGS: The patient was seen in his room sitting up in his wheelchair at [facility]. I remained greater than 6 feet [...] SYSTEMS: See above. MEDICATIONS: Reviewed in the retirement record. CODE STATUS: Full code. PHYSICAL EXAMINATION: [...] DICTATED BY: Diane Lerner PA-C PG/Meagan JOB# [id number] cc:[facility] Normal [facility] PROGRESSon 06-18-2019 PROGRESS HNO ID: [id number] Author: Diane Lerner (Pa) Service: ? Author Type: Physician Lumber Chain Offbearer Type: Progress Notes Filed: 06/19/2019 1:37 PM Note Text: [facility] NOTE NAME: CHRISTY MURPHY NO.: [id number] DATE OF SERVICE: 06/18/2019 [facility] DATE OF : 1955 RESIDENTIAL CHART VISIT NOTE CHIEF COMPLAINT: Follow up for end-stage renal disease, type 2 diabetes mellitus, weakness, and other medical issues. SUBJECTIVE FINDINGS: The patient was seen in his room sitting up in his wheelchair at [facility]. I remained greater than 6 feet [...] lift for transfers. MEDICATIONS: Reviewed in the retirement record. CODE STATUS: Full code. PHYSICAL EXAMINATION: [...] DICTATED BY: Diane Lerner PA-C PG/Acjanis JOB# [id number] cc:[facility] Normal [facility] PROGRESSon 06-16-2019 PROGRESS HNO ID: [id number] Author: Diane Lerner (Pa) Service: ? Author Type: Physician Lumber Chain Offbearer Type: Progress Notes Filed: 06/17/2019 3:57 PM Note Text: [facility] NOTE NAME: CHRISTY MURPHY NO.: [id number] DATE OF SERVICE: 06/16/2019 [facility] DATE OF : 1955 CHIEF COMPLAINT: Skilled followup visit for type 2 diabetes mellitus, renal disease, and other medical issues. SUBJECTIVE FINDINGS: The patient was seen in his room lying in bed at [facility]. I remained greater than 6 feet [...] Please see above. MEDICATIONS: Reviewed in the retirement record. CODE STATUS: Full code. PHYSICAL EXAMINATION: Temperature 98.2, pulse 75, respirations 16, BP 108/55, pulse oximetry 96%. Examination revealed an obese, zfsxja-vyny-jotwgxpgl male lying in bed. He was in [...] DICTATED BY: Diane Lerner PA-C PG/Acjanis JOB# [id number] cc:[facility] PROGRESSon 06-15-2019 PROGRESS HNO ID: [id number] Author: Saad Ahumada Service: ? Author Type: Physician Type: Progress Notes Filed: 06/18/2019 4:17 PM Note Text: [facility] NOTE NAME: CHRISTY MURPHY NO.: [id number] DATE OF SERVICE: 06/15/2019 [facility] DATE OF : 1955 NEW PATIENT HISTORY AND PHYSICAL HISTORY OF PRESENT ILLNESS: The patient is a 63-year-old male who was admitted to us from [facility] with the diagnosis of acute hypoxemic respiratory [...] hospital with fever and increasing malaise. At [facility], he was treated for congestive heart failure exacerbation and bacterial pneumonia with antibiotics. However, his condition worsened requiring intubation, after which he was transferred to [facility] Intensive Care Unit where he was diagnosed [...] possible. DICTATED BY: MD FLAKITO White/Meagan JOB# [id number] cc:[facility] Normal [facility] Operative Reporton 0 Operative Report MR#: [id number] S [facility] Pt. Name: Seth Murphy Room #: D5 [...] patient was consented and brought to the fish farm laborer. The patient was placed in supine position. [...] and the tubing of the PermCath size 14.5-Jordanian x 24 cm was tunneled starting with [...] Amaro MD Date Trans: 06/04/2019 01:35 P/mmo [id number] cc: Nav Alejo M.D. [address] [id number] [place] [facility] Vital Signs Date Time Vital Sign Value Performing Clinician Facility 10-31-2023 14:30-0400 Diastolic blood pressure 72 mm[Hg] MD Nav Alejo Work Phone: [facility] 10-31-2023 14:30-0400 Heart rate 98 /min MD Nav Alejo Work Phone: [facility] 10-31-2023 14:30-0400 Respiratory rate 16 /min MD Nav Alejo Work Phone: [facility] 10-31-2023 14:30-0400 SaO2% (BldA) [Mass fraction] 98 % MD Nav Alejo Work Phone: [facility] 10-31-2023 14:30-0400 Systolic blood pressure 160 mm[Hg] MD Nav Alejo Work Phone: [facility] 10-31-2023 11:47-0400 Body height 177.8 cm MD Nav Alejo Work Phone: [facility] 10-31-2023 11:47-0400 Body temperature 98 [degF] MD Nav Alejo Work Phone: [facility] 10-31-2023 11:47-0400 Body weight 93 kg MD Nav Alejo Work Phone: [facility] 09-02-2023 16:25-0400 Respiratory rate 18 /min MD Nav Alejo Work Phone: [facility] 09-02-2023 15:29-0400 Body temperature 98.4 [degF] MD Nav Alejo Work Phone: [facility] 09-02-2023 15:29-0400 Diastolic blood pressure 80 mm[Hg] MD Nav Alejo Work Phone: [facility] 09-02-2023 15:29-0400 Heart rate 61 /min MD Nav Alejo Work Phone: [facility] 09-02-2023 15:29-0400 SaO2% (BldA) [Mass fraction] 96 % MD Nav Alejo Work Phone: [facility] 09-02-2023 15:29-0400 Systolic blood pressure 135 mm[Hg] MD Nav Alejo Work Phone: [facility] 09-02-2023 05:28-0400 Body weight 100.1 kg MD Nav Alejo Work Phone: [facility] 08-29-2023 13:56-0400 Body height 180.34 cm MD Nav Alejo Work Phone: [facility] 06-26-2023 14:04-0400 Body temperature 98.8 [degF] MD Nav Alejo Work Phone: [facility] 06-26-2023 14:04-0400 Diastolic blood pressure 72 mm[Hg] MD Nav Alejo Work Phone: [facility] 06-26-2023 14:04-0400 Respiratory rate 18 /min MD Nav Alejo Work Phone: [facility] 06-26-2023 14:04-0400 SaO2% (BldA) [Mass fraction] 96 % MD Nav Alejo Work Phone: [facility] 06-26-2023 14:04-0400 Systolic blood pressure 122 mm[Hg] MD Nav Alejo Work Phone: [facility] 06-26-2023 13:55-0400 Heart rate 42 /min MD Nav Alejo Work Phone: [facility] 06-26-2023 05:53-0400 Body weight 97.5 kg MD Nav Alejo Work Phone: [facility] 06-25-2023 12:27-0400 Inhaled oxygen flow rate 8 L/min MD Nav Alejo Work Phone: [facility] 06-25-2023 10:25-0400 Body height 177.8 cm MD Nav Alejo Work Phone: [facility] 06-25-2023 10:25-0400 Body mass index (BMI) [Ratio] 29.5 kg/m2 MD Nav Alejo Work Phone: [facility] 06-21-2023 21:58-0400 Body temperature 99.9 [degF] MD Nav Alejo Work Phone: [facility] 06-21-2023 21:58-0400 Diastolic blood pressure 52 mm[Hg] MD Nav Alejo Work Phone: [facility] 06-21-2023 21:58-0400 Heart rate 84 /min MD Nav Alejo Work Phone: [facility] 06-21-2023 21:58-0400 Respiratory rate 16 /min MD Nav Alejo Work Phone: [facility] 06-21-2023 21:58-0400 SaO2% (BldA) [Mass fraction] 100 % MD Nav Alejo Work Phone: [facility] 06-21-2023 21:58-0400 Systolic blood pressure 100 mm[Hg] MD Nav Alejo Work Phone: [facility] 06-21-2023 18:28-0400 Body height 177.8 cm MD Nav Alejo Work Phone: [facility] 06-21-2023 18:28-0400 Body weight 92.6 kg MD Nav Alejo Work Phone: [facility] 05-09-2023 13:12-0400 Body height 177.8 cm MD Nav Alejo Work Phone: [facility] 05-09-2023 13:12-0400 Body mass index (BMI) [Ratio] 36.4 kg/m2 MD Nav Alejo Work Phone: [facility] 05-09-2023 13:12-0400 Body temperature 97.3 [degF] MD Nav Alejo Work Phone: [facility] 05-09-2023 13:12-0400 Body weight 115.21 kg MD Nav Alejo Work Phone: [facility] 05-09-2023 13:12-0400 Diastolic blood pressure 69 mm[Hg] MD Nav Alejo Work Phone: [facility] 05-09-2023 13:12-0400 Heart rate 69 /min MD Nav Alejo Work Phone: [facility] 05-09-2023 13:12-0400 Systolic blood pressure 98 mm[Hg] MD Nav Alejo Work Phone: [facility] 04-16-2023 08:21-0500 Body temperature 98.3 [degF] MD Nav Alejo Work Phone: [facility] 04-16-2023 08:21-0500 Diastolic blood pressure 71 mm[Hg] MD Nav Alejo Work Phone: [facility] 04-16-2023 08:21-0500 Heart rate 85 /min MD Nav Alejo Work Phone: [facility] 04-16-2023 08:21-0500 Respiratory rate 18 /min MD Nav Alejo Work Phone: [facility] 04-16-2023 08:21-0500 SaO2% (BldA) [Mass fraction] 96 % MD Nav Alejo Work Phone: [facility] 04-16-2023 08:21-0500 Systolic blood pressure 135 mm[Hg] MD Nav Alejo Work Phone: [facility] 04-16-2023 06:00-0500 Body weight 115.6 kg MD Nav Alejo Work Phone: [facility] 04-15-2023 15:06-0500 Body height 177.8 cm MD Nav Alejo Work Phone: [facility] 01-31-2023 09:47-0500 Body height 177.8 cm Seth Ying DO Work Phone: [facility] 01-31-2023 09:47-0500 Body mass index (BMI) [Ratio] 29.41 kg/m2 Seth Ying DO Work Phone: [facility] 01-31-2023 09:47-0500 Body weight 92.99 kg Seth Ying DO Work Phone: [facility] 01-31-2023 09:47-0500 Diastolic blood pressure 62 mm[Hg] Seth Ying DO Work Phone: [facility] 01-31-2023 09:47-0500 Heart rate 76 /min Seth Ying DO Work Phone: [facility] 01-31-2023 09:47-0500 Systolic blood pressure 122 mm[Hg] Seth Ying DO Work Phone: [facility] 08-09-2022 14:15-0400 Body height 180.34 cm Alfredo Acosta Other [facility] Other 08-09-2022 14:15-0400 Body mass index (BMI) [Ratio] 28.73 kg/m2 Alfredo Acosta Other [facility] Other 08-09-2022 14:15-0400 Body temperature 97.3 [degF] Alfredo Acosta Other [facility] Other 08-09-2022 14:15-0400 Body weight 93.44 kg Alfredo Acosta Other [facility] Other 08-09-2022 14:15-0400 Diastolic blood pressure 62 mm[Hg] Alfredo Acosta Other [facility] Other 08-09-2022 14:15-0400 Systolic blood pressure 99 mm[Hg] Alfredo Acosta Other [facility] Other 07-30-2022 09:03-0400 Blood Pressure Location Greg Alarcon [facility] 07-30-2022 09:03-0400 Diastolic blood pressure 60 mm[Hg] Greg Alarcon [facility] 07-30-2022 09:03-0400 Heart rate 77 /min Greg Alarcon [facility] 07-30-2022 09:03-0400 SaO2% (BldA) [Mass fraction] 98 % Greg Harveyan [facility] 07-30-2022 09:03-0400 Systolic blood pressure 110 mm[Hg] Greg Harveyan [facility] 07-12-2022 13:24-0400 Blood Pressure Location Greg Harveyan [facility] 07-12-2022 13:24-0400 Diastolic blood pressure 62 mm[Hg] Greg Alarcon [facility] 07-12-2022 13:24-0400 Heart rate 94 /min Greg Alarcon [facility] 07-12-2022 13:24-0400 SaO2% (BldA) [Mass fraction] 97 % Greg Alarcon [facility] 07-12-2022 13:24-0400 Systolic blood pressure 94 mm[Hg] Greg Alarcon [facility] 07-09-2022 19:00-0400 Diastolic blood pressure 65 mm[Hg] [facility] 07-09-2022 19:00-0400 Heart rate 74 /min [facility] 07-09-2022 19:00-0400 Mean blood pressure 80 mm[Hg] [facility] 07-09-2022 19:00-0400 Respiratory rate 17 /min [facility] 07-09-2022 19:00-0400 Systolic blood pressure 110 mm[Hg] [facility] 07-09-2022 18:30-0400 Heart rate 75 /min [facility] 07-09-2022 18:30-0400 Respiratory rate 23 /min [facility] 07-09-2022 18:00-0400 Diastolic blood pressure 60 mm[Hg] [facility] 07-09-2022 18:00-0400 Heart rate 79 /min [facility] 07-09-2022 18:00-0400 Mean blood pressure 73 mm[Hg] [facility] 07-09-2022 18:00-0400 Respiratory rate 11 /min [facility] 07-09-2022 18:00-0400 SaO2% (BldA) [Mass fraction] 96 % [facility] 07-09-2022 18:00-0400 Systolic blood pressure 98 mm[Hg] [facility] 07-09-2022 17:30-0400 Diastolic blood pressure 55 mm[Hg] [facility] 07-09-2022 17:30-0400 Mean blood pressure 67 mm[Hg] [facility] 07-09-2022 17:30-0400 SaO2% (BldA) [Mass fraction] 98 % [facility] 07-09-2022 17:30-0400 Systolic blood pressure 90 mm[Hg] [facility] 07-09-2022 17:25-0400 Body temperature 98.06 [degF] [facility] 07-09-2022 17:25-0400 Heart rate 95 /min [facility] 07-09-2022 17:25-0400 Respiratory rate 16 /min [facility] 07-09-2022 17:25-0400 SaO2% (BldA) [Mass fraction] 98 % [facility] 03-15-2022 11:05-0500 Blood Pressure Location Greg Dorian [facility] 03-15-2022 11:05-0500 Diastolic blood pressure 50 mm[Hg] Greg Alarcon [facility] 03-15-2022 11:05-0500 Heart rate 75 /min Greg Alarcon [facility] 03-15-2022 11:05-0500 SaO2% (BldA) [Mass fraction] 98 % Greg Alarcon [facility] 03-15-2022 11:05-0500 Systolic blood pressure 90 mm[Hg] Greg Alarcon [facility] 01-11-2022 11:29-0500 Body height 177.8 cm Nav M Hoy Work Phone: [facility] 250 DO Work Phone: 01-11-2022 11:29-0500 Body mass index (BMI) [Ratio] 32.71 kg/m2 Nav M Hoy Work Phone: [facility] DO Work Phone: 01-11-2022 11:29-0500 Body surface area Derived from formula 2.21 m2 Nav M Hoy Work Phone: [facility] DO Work Phone: 01-11-2022 11:29-0500 Body weight 103.42 kg Nav M Hoy Work Phone: [facility] 250 DO Work Phone: 01-11-2022 11:29-0500 Diastolic blood pressure 60 mm[Hg] Nav M Hoy Work Phone: [facility] DO Work Phone: 01-11-2022 11:29-0500 Heart rate 80 /min Nav M Hoy Work Phone: [facility] 250 DO Work Phone: 01-11-2022 11:29-0500 Systolic blood pressure 98 mm[Hg] Nav M Hoy Work Phone: [facility] 250 DO Work Phone: 11-02-2021 12:32-0400 Blood Pressure Location Greg Aalrcon [facility] 11-02-2021 12:32-0400 Body temperature 97.7 [degF] Greg Alarcon [facility] 11-02-2021 12:32-0400 Diastolic blood pressure 63 mm[Hg] Greg Alarcon [facility] 11-02-2021 12:32-0400 Heart rate 72 /min Greg Harveyan [facility] 11-02-2021 12:32-0400 Respiratory rate 16 /min Greg Alarcon [facility] 11-02-2021 12:32-0400 SaO2% (BldA) [Mass fraction] 96 % Greg Alarcon [facility] 11-02-2021 12:32-0400 Systolic blood pressure 105 mm[Hg] Greg Harveyan [facility] 10-26-2021 14:53-0400 Blood Pressure Location Greg Alarcon [facility] 10-26-2021 14:53-0400 Diastolic blood pressure 66 mm[Hg] Greg Alarcon [facility] 10-26-2021 14:53-0400 Heart rate 82 /min Greg Alarcon [facility] 10-26-2021 14:53-0400 SaO2% (BldA) [Mass fraction] 97 % Greg Alarcon [facility] 10-26-2021 14:53-0400 Systolic blood pressure 107 mm[Hg] Greg Alarcon [facility] 07-13-2021 11:47-0400 Body height 177.8 cm Nav Falcon [employer] Work Phone: [facility] 250 DO Work Phone: 07-13-2021 11:47-0400 Body mass index (BMI) [Ratio] 32.14 kg/m2 Nav Ezekiel [employer] Work Phone: [facility] 250 DO Work Phone: 07-13-2021 11:47-0400 Body surface area Derived from formula 2.19 m2 Nav Falcon Hoy Work Phone: [facility] 250 DO Work Phone: 07-13-2021 11:47-0400 Body weight 101.61 kg Nav Falcon Hoy Work Phone: [facility] 250 DO Work Phone: 07-13-2021 11:47-0400 Diastolic blood pressure 76 mm[Hg] Nav Falcon Hoy Work Phone: [facility] DO Work Phone: 07-13-2021 11:47-0400 Heart rate 66 /min Nav Falcon Hoy Work Phone: [facility] 250 DO Work Phone: 07-13-2021 11:47-0400 Systolic blood pressure 112 mm[Hg] Nav Falcon Hoy Work Phone: [facility] 250 DO Work Phone: Encounters Encounter Date Encounter Type Care Provider Facility Start: 10-31-2023 End: 10-31-2023 Emergency department patient visit MD Nav Alejo Work Phone: [facility]Emergency Room Work Phone: Start: 10-18-2023 Non-patient / Non-visit MD Adolfo Alejo Work Phone: [facility] Work Phone: Start: 10-05-2023 Non-patient / Non-visit MD Adolfo Alejo Work Phone: [facility] Work Phone: Start: 10-04-2023 End: 10-04-2023 Evaluation and management of inpatient [facility] Start: 10-01-2023 End: 10-04-2023 Evaluation and management of inpatient [facility] Start: 10-01-2023 End: 10-01-2023 Evaluation and management of inpatient [facility] Start: 09-30-2023 Non-patient / Non-visit MD Adolfo Alejo Work Phone: [facility] Work Phone: Start: 09-23-2023 Non-patient / Non-visit MD Adolfo Alejo Work Phone: [facility] Work Phone: Start: 09-19-2023 End: 09-19-2023 ambulatory MD Nav Alejo Work Phone: [facility] Work Phone: Start: 09-19-2023 End: 09-19-2023 Departed Referred MD Nav Alejo Work Phone: [facility] Start: 09-04-2023 Non-patient / Non-visit MD Adolfo Alejo Work Phone: [facility] Work Phone: Start: 09-02-2023 Non-patient / Non-visit MD Adolfo Alejo Work Phone: [facility] Nephrology Work Phone: Start: 08-30-2023 Non-patient / Non-visit MD Adolfo Alejo Work Phone: [facility] Vascular Surgery Work Phone: Start: 08-29-2023 End: 08-29-2023 ambulatory ROMEO POP Not Available Start: 08-27-2023 End: 08-27-2023 ambulatory ROMEO POP Not Available Start: 08-26-2023 Non-patient / Non-visit MD Adolfo Alejo Work Phone: [facility] Nephrology Work Phone: Start: 08-26-2023 Non-patient / Non-visit MD Adolfo Alejo Work Phone: [facility] Infectious Disease Work Phone: Start: 08-25-2023 End: 09-02-2023 Evaluation and management of inpatient MD Nav Alejo Work Phone: [facility]-4 North Surgical Work Phone: Start: 08-05-2023 Non-patient / Non-visit MD Adolfo Alejo Work Phone: [facility] Work Phone: Start: 08-01-2023 End: 08-01-2023 ambulatory FELISA H WIN Not Available Start: 07-16-2023 End: 07-16-2023 ambulatory FELISA H WIN Not Available Start: 07-08-2023 Non-patient / Non-visit MD Adolfo Alejo Work Phone: [facility] Work Phone: Start: 07-04-2023 End: 07-04-2023 ambulatory FELISA H WIN Not Available Start: 06-24-2023 End: 06-25-2023 Non-patient / Non-visit MD Nav Alejo Work Phone: [facility] Infectious Disease Work Phone: Start: 06-22-2023 End: 06-26-2023 Non-patient / Non-visit MD Nav Alejo Work Phone: [facility] Nephrology Work Phone: Start: 06-21-2023 End: 06-26-2023 Evaluation and management of inpatient MD Nav Alejo Work Phone: [facility] Work Phone: Start: 06-18-2023 End: 06-19-2023 ambulatory Greg Alarcon Facility:[facility] Start: 06-18-2023 End: 06-18-2023 Patient encounter procedure Greg Alarcon [facility] Start: 06-05-2023 Non-patient / Non-visit MD Adolfo Alejo Work Phone: [facility]ician [facility] Work Phone: Start: 05-27-2023 End: 05-28-2023 ambulatory Greg Alarcon Facility:[facility] Start: 05-27-2023 End: 05-27-2023 Patient encounter procedure Greg Alarcon [facility] Start: 05-09-2023 End: 05-09-2023 ambulatory MD Nav Alejo Work Phone: [facility] Work Phone: Start: 05-09-2023 End: 05-09-2023 Patient encounter procedure MD Nav Alejo Work Phone: [facility] Infectious Disease Work Phone: Start: 05-05-2023 Non-patient / Non-visit MD Adolfo Alejo Work Phone: [facility] Work Phone: Start: 04-23-2023 Non-patient / Non-visit MD Adolfo Alejo Work Phone: [facility] Work Phone: Start: 04-10-2023 Non-patient / Non-visit MD Adolfo Alejo Work Phone: [facility] Vascular Surgery Work Phone: Start: 04-10-2023 Non-patient / Non-visit MD Adolfo Alejo Work Phone: [facility] Nephrology Work Phone: Start: 04-10-2023 Non-patient / Non-visit MD Adolfo Alejo Work Phone: [facility] Infectious Disease Work Phone: Start: 04-09-2023 Non-patient / Non-visit MD Adolfo Alejo Work Phone: [facility] Work Phone: Start: 04-09-2023 End: 04-16-2023 Evaluation and management of inpatient MD Nav Alejo Work Phone: [facility] Work Phone: Start: 04-06-2023 Non-patient / Non-visit MD Adolfo Alejo Work Phone: [facility] Work Phone: Start: 03-15-2023 ambulatory [facility] Start: 03-15-2023 End: 03-16-2023 ambulatory [facility] Start: 02-06-2023 ambulatory [facility] Start: 01-31-2023 End: 01-31-2023 ambulatory [facility] Ambulatory Start: 01-31-2023 End: 01-31-2023 Office outpatient visit 15 minutes [facility] DO Work Phone: [facility] Comment on above: Arteriosclerotic hea rt disease; S/P PTCA (percutaneous transluminal coronary angioplasty); ESRD (end stage renal disease) on dialysis ([facility]); Diabetes mellitus of other type without complication, unspecified whether longterm insulin use ([facility]); Essential hypertension; Hyperlipidemia, unspecified hyperlipidemia type; Never smoked any substance Start: 01-18-2023 Encounter for other preprocedural examination [facility] Start: 01-18-2023 End: 01-18-2023 ambulatory [facility] Start: 01-16-2023 Encounter for other preprocedural examination [facility] Start: 01-15-2023 End: 01-15-2023 ambulatory GREG ALARCON [facility] Start: 01-09-2023 End: 01-10-2023 ambulatory ROSANNE GAMEZ [facility] Start: 10-16-2022 ambulatory ROSANNE [facility] Start: 10-02-2022 End: 10-02-2022 ambulatory GREG ALARCON [facility] Start: 08-16-2022 End: 08-17-2022 ambulatory Greg HopeElodia Alarcon Facility:[facility] Start: 08-16-2022 End: 08-16-2022 Patient encounter procedure Greg HerminiaElodia Alarcon [facility] Start: 08-15-2022 Rx Renewal Nav Alejo Work Phone: [facility] 250 DO Work Phone: Start: 08-09-2022 End: 08-09-2022 ambulatory Alfredo Acosta Other [facility] Other Start: 08-09-2022 Office outpatient vi sit 25 minutes Alfredo Acosta [facility] Infectious Disease Start: 07-30-2022 End: 07-31-2022 ambulatory Greg HerminiaElodia Dorian Facility:[facility] Start: 07-30-2022 End: 07-30-2022 Patient encounter procedure Luisanakeenan HopeElodia Dorian [facility] Start: 07-18-[address] Nav Alejo Facility: Start: 07-12-2022 End: 07-20-2022 Evaluation and management of inpatient Fuentes Rodriguez Facility:[facility] Start: 07-12-2022 End: 07-13-2022 ambulatory Greg HerminiaElodia Dorian Facility:[facility] Start: 07-12-2022 End: 07-17-2022 Pre-admission assessment Greg Alarcon [facility] Start: 07-12-2022 End: 07-12-2022 Patient encounter procedure Greg Alarcon [facility] Start: 07-09-2022 End: 07-09-2022 Emergency department patient visit Adam Weinberg Facility:[facility] Start: 07-09-2022 End: 07-09-2022 Emergency department patient visit Adam Weinberg [facility] Start: 07-02-2022 End: 07-03-2022 ambulatory Greg Alarcon Facility:[facility] Start: 06-29-2022 End: 06-29-2022 Emergency department patient visit Reji Azar Facility:[facility] Start: 06-26-[address] NAV ALEJO . Facili ty:[facility]1 Start: 06-05-2022 End: 06-06-[address] NAV ALEJO . Facility:[facility] Start: 05-17-2022 ambulatory UNKNOWN PROVIDER Facili ty:[facility] Start: 05-09-2022 End: 05-09-[address] NAV ALEJO . Facility:[facility] Start: 05-08-2022 End: 05-09-2022 ambulatory [facility]UREN Herrera [facility] Start: 04-12-2022 End: 04-13-2022 ambulatory MARANDA TAYLOR Facility:[facility] Start: 03-20-2022 End: 03-21-2022 ambulatory LAUREN Herrera [facility] Facility:[facility] Start: 03-15-2022 End: 03-15-2022 Admission to same day surgery center Greg Alarcon [facility] Start: 03-15-2022 End: 03-15-2022 Patient encounter procedure ASHOK ALARCON [facility] Start: 03-15-2022 End: 03-15-2022 Patient encounter procedure Greg Alarcon [facility] Start: 03-06-2022 End: 03-07-2022 ambulatory MARANDA TAYLOR Facility:[facility] Start: 02-27-2022 End: 02-28-[address] NAV ALEJO . Facility:[facility] Start: 02-15-2022 End: 02-16-2022 ambulatory NATHEN LUCIA Facility:[facility] Start: 01-11-2022 End: 01-11-[address] NAV ALEJO . Facility:[facility] Start: 01-11-2022 Office outpatient vi sit 15 minutes Nav Falcon Melo Work Phone: [facility] 250 DO Work Phone: Start: 01-11-[address] Seth Ying Facility: Start: 11-02-2021 End: 11-02-2021 Admission to same day surgery center [facility] Jessica Alarcon [facility] Start: 10-26-2021 End: 10-26-2021 [facility] Start: 10-25-2021 Rx Renewal Nav Alejo Work Phone: [facility] 250 DO Work Phone: Start: 08-28-2021 End: 08-28-2021 ambulatory NYLA MOTA . Facility:[facility] Start: 07-13-2021 Office outpatient vi sit 15 minutes Nav Ezekiel Alejo Work Phone: [facility] 250 DO Work Phone: Start: 06-04-2019 End: 06-05-2019 Patient encounter procedure NAV ALEJO Facility:[facility] Procedures Date Procedure Procedure Detail Performing [...] Start: 07-16-2022 Arteriovenous fistul a (morphologic abnormality) [employer] Start: 07-02-2022 Insertion of hemodia lysis catheter Adam Barakatangel Start: 03-15-2022 Fistulography with contrast [employer] Start: 11-02-2021 Fluoroscopic fistulography [employer] Start: 08-04-2020 Fistulography with contrast [employer] Start: 07-07-2020 Removal of catheter [employer] [facility] [employer] Comment on above: removal of hemodialy sis catheter removal of hemodialy sis catheter Start: 06-16-2020 Coagulation factor X I (substance) [employer] Comment on above: PORTER USED CAR LOT of Left Fistula PORTER USED CAR LOT of Left Fistula Start: 03-31-2020 Arteriovenous fistulization [employer] Start: 08-06-2019 AV fistula recircula tion (observable entity) [employer] Comment on above: creation of av fistu la of left arm. creation of av fistu la of left arm. Cardiac catheterization Enoch Alejo Work Phone: Cholecystectomy Nav esparza Work Phone: Cholecystectomy Greg Osma n Colonoscopy Nav Aleoj Work Phone: H/O: tracheostomy Greg Os man [...] Date Care Activity Detail Author Start: 09-19-2023 [facility] Start: 09-02-2023 [facility] Start: 08-29-2023 Administration of prophylactic treatment [facility] Start: 08-25-2023 Referral to continuous loft operator [facility] Start: 08-25-2023 Hospital admission [facility] Start: 08-25-2023 Referral to infectious diseases physician [facility] Start: 08-25-2023 Referral to chrome tanning drum operator [facility] Start: 08-25-2023 Excision of Right Foot Subcutaneous Tissue and Fascia, Open Approach Excision of Right Foot Subcutaneous Tissue and Fascia, Open Approach [facility] Start: 08-25-2023 Excision of Right Metatarsal, Percutaneous Approach, Diagnostic Excision of Right Metatarsal, Percutaneous Approach, Diagnostic [facility] Start: 08-25-2023 Insertion of Infusion Device into Left Subclavian Vein, Percutaneous Approach Insertion of Infusion Device into Left Subclavian Vein, Percutaneous Approach [facility] Start: 08-25-2023 Performance of Urinary Filtration, Intermittent, Less than 6 Hours Per Day Performance of Urinary Filtration, Intermittent, Less than 6 Hours Per Day [facility] Start: 06-26-2023 End: 06-26-2023 [facility] Start: 06-25-2023 [facility] Start: 06-24-2023 [facility] Start: 06-23-2023 [facility] Start: 06-22-2023 [facility] Start: 06-21-2023 Referral to continuous loft operator [facility] Start: 06-21-2023 Referral to chrome tanning drum operator [facility] Start: 06-21-2023 Referral to infectious diseases physician [facility] Start: 06-21-2023 Hospital admission [facility] Start: 06-21-2023 End: 06-21-2023 [facility] Start: 06-21-2023 Bacteria identified in Blood by Culture [facility] Start: 06-21-2023 Detachment at Left Foot, Partial 1st Ray, Open Approach Detachment at Left Foot, Partial 1st Ray, Open Approach [facility] Start: 06-21-2023 Performance of Urinary Filtration, Intermittent, Less than 6 Hours Per Day Performance of Urinary Filtration, Intermittent, Less than 6 Hours Per Day [facility] Start: 04-16-2023 [facility] Start: 04-15-2023 Insertion of peripherally inserted central catheter [facility] Start: 04-10-2023 Referral to infectious diseases physician [facility] Start: 04-09-2023 Referral to continuous loft operator [facility] Start: 04-09-2023 Referral to vascular surgeon [facility] Start: 04-09-2023 Referral to chrome tanning drum operator [facility] Start: 04-09-2023 Hospital admission [facility] Start: 04-09-2023 Fluoroscopy of Left Upper Extremity Veins using Low Osmolar Contrast Fluoroscopy of Left Upper Extremity Veins using Low Osmolar Contrast [facility] Start: 04-09-2023 Insertion of Infusion Device into Upper Vein, Percutaneous Approach Insertion of Infusion Device into Upper Vein, Percutaneous Approach [facility] Start: 04-09-2023 Inspection of Upper Vein, Percutaneous Approach Inspection of Upper Vein, Percutaneous Approach [facility] Start: 04-09-2023 Performance of Urinary Filtration, Intermittent, Less than 6 Hours Per Day Performance of Urinary Filtration, Intermittent, Less than 6 Hours Per Day [facility] Start: 04-09-2023 Removal of Infusion Device from Upper Vein, External Approach Removal of Infusion Device from Upper Vein, External Approach [facility] Start: 01-31-2023 End: 02-01-2024 Alanine aminotransferase [...] hyperlipidemia type Expected: 01/31/2023 (Approximate), Expires: 02/01/2024 [facility] Work Phone: Comment on above: Expected: 01/31/2023 (Approximate), Expi res: 02/01/2024 Start: 01-31-2023 End: 02-01-2024 Lipid 1996 panel - Serum or Plasma Lipid Panel Lab Routine Arteriosclerotic heart disease Essential hypertension Hyperlipidemia, unspecified hyperlipidemia type Expected: 01/31/2023 (Approximate), Expires: 02/01/2024 [facility] Work Phone: Comment on above: Expected: 01/31/2023 (Approximate), Expi res: 02/01/2024 Start: 01-15-2023 FUV, Provider: Seth Ying, Status: Pen, Time: 10:10 AM FUV, Provider: Seth Ying, Status: Pen, Time: 10:10 AM [facility] [place] 250 DO Work Phone: Start: 10-12-2022 Influenza vaccination Influenza Vaccine (#1) [facility] Start: 01-11-2022 FUV, Provider: Seth Ying, Status: Phani, Time: 11:10 AM FUV, Provider: Seth Ying, Status: Phani, Time: 11:10 AM [facility] DO Work Phone: Start: 10-20-2021 Echocardiography Echocardiogram [facility] Start: 03-28-2021 COVID-19 Vaccine (4 - Pfizer series) COVID-19 Vaccine (4 - Pfizer series) [facility] Start: 11-21-2005 Zoster Vaccines (1 of 2) Zoster Vaccines (1 of 2) [facility] Start: 11-21-1977 DTaP/Tdap/Td Vaccines (1 - Tdap) DTaP/Tdap/Td Vaccines (1 - Tdap) [facility] Start: 11-21-1974 Urine screening for protein Diabetes: Urine Protein Screening [facility] Start: 11-21-1973 Hepatitis C screening Hepatitis C Screening [facility] Start: 11-21-1965 Diabetic foot examination Diabetes: Foot Exam [facility] Start: 11-21-1965 Glaucoma screening Diabetes: Retinopathy Screening [facility] Start: 11-21-1961 Pneumococcal Vaccine: 65+ Years (1 - PCV) Pneumococcal Vaccine: 65+ Years (1 - PCV) [facility] Start: 1955 Creatinine measurement Creatinine Level [facility] Start: 1955 Hemoglobin A1c measurement Diabetes: Hemoglobin A1C [facility] Start: 1955 Lipid panel Lipid Panel [facility] Start: 1955 Medicare Annual Wellness Visit Medicare Annual Wellness Visit (AWV) [facility] Start: 1955 Potassium measurement Potassium Level [facility] Start: 1955 Screening for malignant neoplasm of colon [facility] Start: 1955 Thyroid stimulating hormone measurement TSH Level [facility] Patient Education [facility] Work Phone: Patient referral [facility] Work Phone: Immunizations Immunization Date Immunization Notes Care Provider Fa ciligill 01-31-2021 Pfizer-BioNTech COVID-19 Vacc 30 MCG/0.3ML Intramuscular Suspension [facility] Work Phone: 07-26-2020 Pfizer-BioNTech COVID-19 Vacc 30 MCG/0.3ML Intramuscular Suspension Nav Alejo [facility] Work Phone: 07-05-2020 Pfizer-BioNTech COVID-19 Vacc 30 MCG/0.3ML Intramuscular Suspension Nav Alejo Work Phone: [facility] Payers Date Payer Category Payer Self-pay [id number] 2023 Unknown [id number] 2019 Medicare MEDICARE MEDICAR E PART A AND B [id number] 2019-Present [address] [place] [address] [id number]. [id number] 2018 Unknown [id number] 2015 Unknown [id number] 1959 Medicare [id number] 1955 Unknown [id number] 2.16.840.1.145691.3.579.2.647 1955 Unknown [id number] 2.16.840.1.715991.3.579.2.732 1955 Unknown [id number] 2.16.840.1.673674.3.579.2.593 1955 Unknown [id number] 2.16.840.1.949040.3.579.2.593 1955 Unknown [id number] 2.16.840.1.687832.3.579.2.593 1955 Unknown [id number] 2.16.840.1.108928.3.579.2.593 1955 Unknown [id number] 2.16.840.1.280656.3.579.2.593 1955 Unknown [id number] 2.16.840.1.106922.3.579.2.593 1955 Unknown [id number] 2.16.840.1.295338.3.579.2.593 1955 Unknown [id number] 2.16.840.1.439884.3.579.2.593 1955 Unknown [id number] 2.16.840.1.970554.3.579.2.593 1955 Unknown [id number] 2.16.840.1.496995.3.579.2.593 1955 Unknown [id number] 2.16.840.1.779939.3.579.2.593 1955 Unknown [id number] 2.16.840.1.799952.3.579.2.356 1955 Unknown [id number] 2.16.840.1.969409.3.579.2.356 1955 Unknown [id number] 2.16.840.1.625876.3.579.2.1244 1955 Unknown [id number] 2.16.840.1.338848.3.579.2.727 1955 Unknown [id number] 2.16.840.1.409922.3.579.2.727 1955 Unknown [id number] 2.16.840.1.448099.3.579.2.727 1955 Unknown [id number] 2.16.840.1.577494.3.579.2.727 1955 Unknown [id number] 2.16.840.1.609255.3.579.2.727 1955 Unknown [id number] 2.16.840.1.167669.3.579.2.727 1955 Unknown [id number] 2.16.840.1.335004.3.579.2.727 1955 Unknown [id number] 2.16.840.1.079347.3.579.2.727 1955 Unknown [id number] 2.16.840.1.052003.3.579.2.727 1955 Unknown [id number] 2.16.840.1.809455.3.579.2.1259 1955 Unknown [id number] 2.16.840.1.876135.3.579.2.1259 1955 Unknown [id number] 2.16.840.1.903450.3.579.2.1259 1955 Unknown [id number] 2.16.840.1.771743.3.579.2.1259 1955 Unknown [id number] 2.16.840.1.421100.3.579.2.1259 1955 Unknown [id number] 2.16.840.1.251279.3.579.2.1286 1955 Unknown [id number] 2.16.840.1.325531.3.579.2.1286 1955 Unknown [id number] 2.16.840.1.836016.3.579.2.1286 1955 Unknown [id number] 2.16.840.1.484221.3.579.2.1286 Unknown Unknown [id number] 2.16.840.1.698588.3.579.2.531 Social History Date Type Detail Facility [facility] Start: 1955 Sex Assigned At Male F [facility] Start: 01-31-2023 Caffeine use Caffeine use [facility] 250 DO Work Phone: Comment on above: 2-3 times weekly- Co ffee. 1 pop daily; Start: 07-07-2020 End: 10-31-2023 Never smoked tobacco (finding) [facility] Start: 01-31-2023 Male [facility] Tobacco smoking status Never [facility] Tobacco [facility] Comment on above: denies Tobacco smoking status No Smokin g Status Entered [facility] Start: 01-31-2023 Tobacco use and exposure Smokeless tobacco non-user [facility] Work Phone: Start: 01-31-2023 Alcohol intake Lifetime non-d carl (finding) [facility] Work Phone: Start: 1955 Sex Assigned At Not on file [facility] Work Phone: Start: 01-21-2023 End: 01-31-2023 Exposure to SARS-CoV-2 (event) Not sure [facility] Medical Equipment Procedure Code Equipment Code [...] status Patient is Pro gressing Toward [facility] Work Phone: 06-26-2023 Functional status Patient is Pro gressing Toward [facility] Work Phone: 05-27-2023 Functional Status No [facility] 04-16-2023 Functional status Patient at Baseline [facility] Work Phone: 07-30-2022 Functional Status No [facility] 07-12-2022 Functional Status No [facility] 07-09-2022 Functional Status N/A [facility] 03-15-2022 Functional Status N/A [facility] 03-15-2022 Functional Status No [facility] 11-02-2021 Functional Status N/A [facility] 10-26-2021 No [facility] Mental Status Date Assessment Result Facility 09-02-2023 Cognitive function Cognitive Sta tus Patient at Baseline [facility] Work Phone: 06-26-2023 Cognitive function Cognitive Sta tus Patient at Baseline [facility] Work Phone: 04-16-2023 Cognitive function Cognitive Sta tus Patient at Baseline [facility] Work Phone: Clinical Notes 11-02-2021 to 09-02-2023 Note Date & Type Note Facility 09-02-2023 Progress note Note Date/Time September 02, 2023 7:47am [facility] [address] [place] [address] Nephrology Progress Note Signed Patient: Seth Murphy MR#: [id number] : 1955 Acct:[id number] Age/Sex: 67 / M Adm Date: 4 Loc: Room: [address] [place] [address] Type: ADM IN Attending Dr: Clay Smith MD Copies to: ~ Date of Service: 09/02/2023 Subjective Subjective Narrative: Mr. Murphy is a 67-year-old male with medical history significant for ESRD, DM, HTN, CAD, Peripheral vascular disease with amputation of left big toe. He presented to the [facility] due to suspected infection on his right foot. He is having increased pain and swelling over this past several days. On presentation to the ED he had fever, chills and confusion. He had no leukocytosis but was febrile, tachycardic, normotensive. Sodium 128, glucose 500, lactic acid 2.2. While at [facility] he was started on IV vancomycin and Rocephin. He was transferred here for dialysis and continued sepsis management. Upon arrival to [facility] he was noted to have a fever of 102, tachycardia, blood pressure 150s over 50s. He appeared septic. 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 Patient receives dialysis on MWF schedule at [facility].. 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, following simple command Musculoskeletal: No swelling [...] 2.5 Mg Tablet) 2.5 mg PO DAILY [facility] Stop: 08/31/24 11:54 Last Admin: 09/01/23 12:54 Dose: 2.5 mg Apixaban (Apixaban 5 Mg Tablet) 10 mg PO BID [facility] Stop: 09/04/23 09:01 Last Admin: 09/01/23 21:31 Dose: 10 mg Apixaban (Apixaban 5 Mg Tablet) 5 mg PO BID [facility] Stop: 09/03/24 20:59 Atorvastatin Calcium (Atorvastatin 40 Mg Tablet) 40 mg PO QPM [facility] Stop: 08/24/24 20:59 Last Admin: 09/01/23 21:31 [...] 50 mls @ 100 mls/hr IV Q24H [facility] Last Admin: 09/01/23 17:01 Dose: 100 mls/hr Insulin Aspart (Insulin Aspart 300 Units/3 Ml Insuln.Pen) 0 units SUBCUT TID.WM.HS [facility]; Protocol Stop: 08/24/24 16:59 Last Admin: 09/01/23 21:31 Dose: 12 units Insulin Glargine (Insulin Glargine 300 Units/3 Ml Insuln.Pen) 45 units SUBCUT QHS [facility] Stop: 08/28/24 21:59 Last Admin: 09/01/23 21:44 Dose: 45 units Levothyroxine Sodium (Levothyroxine 100 Mcg Tablet) 100 mcg PO DAILY.629 [facility] Stop: 08/26/24 06:29 Last Admin: 09/02/23 05:30 Dose: 100 mcg Liothyronine Sodium (Liothyronine 5 Mcg Tablet) 5 mcg PO QAM [facility] Stop: 08/25/24 08:59 Last Admin: 09/01/23 08:24 Dose: 5 mcg Metoprolol Succinate (Metoprolol Succinate 25 Mg Tab.Er.24h) 25 mg PO DAILY [facility] Stop: 08/31/24 08:59 Last Admin: [...] 11:31 Dose: 2 mg Multi-Ingredient Cream (Lanolin Alcohol/Mo/W.Pet/[place] (Minerin) 454 Gm Jar) 1 applic TOPICAL DAILY [facility] Stop: 08/30/24 08:59 Last Admin: 09/01/23 08:24 Dose: 1 applic Nystatin (Nystatin 100,000 Unit/Gram Powder 15 Gm Bottle) 1 applic TOPICAL DAILY [facility] Stop: 08/30/24 08:59 Last Admin: 09/01/23 08:24 Dose: 1 applic Paricalcitol (Paricalcitol 10 Mcg/2 Ml Vial) 7 mcg IV-PUSH MoWeFr@1000 [facility] Stop: 08/25/24 09:59 Last Admin: [...] the dialysis unit on MWF schedule at [facility] (2) Severe sepsis: Plan: Patient has suspected [...] signed by Hilario Nunez MD> 09/02/23 12[address] [facility] Work Phone: 1(825) 824-683007-21-2024 Progress note Author Marina Agudelo [facility] September 01, 2023 1:17pm Note Date/Time September 01, 2023 1:17 pm [facility] [address] [place] [address] Nephrology Progress Note Signed Patient: Seth Murphy MR#: [id number] : 1955 Acct:[id number] Age/Sex: 67 / M Adm Date: 4 Loc: Room: [address] [place] [address] Type: ADM IN Attending Dr: Denice Dahl MD Copies to: ~ Date of Service: 09/01/2023 Subjective Subjective Narrative: Mr. Murphy is a 67-year-old male with medical history significant for ESRD, DM, HTN, CAD, Peripheral vascular disease with amputation of left big toe. He presented to the [facility] due to suspected infection on his right foot. He is having increased pain and swelling over this past several days. On presentation to the ED he had fever, chills and confusion. He had no leukocytosis but was febrile, tachycardic, normotensive. Sodium 128, glucose 500, lactic acid 2.2. While at [facility] he was started on IV vancomycin and Rocephin. He was transferred here for dialysis and continued sepsis management. Upon arrival to [facility] he was noted to have a fever of 102, tachycardia, blood pressure 150s over 50s. He appeared septic. 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 Patient receives dialysis on MWF schedule at [facility].. Nephrology was consulted for ESRD management and [...] 2.5 Mg Tablet) 2.5 mg PO DAILY [facility] Stop: 08/31/24 11:54 Last Admin: [...] 50 mls @ 100 mls/hr IV Q24H [facility] Last Admin: 08/31/23 15:00 Dose: 100 mls/hr Insulin Aspart (Insulin Aspart 300 Units/3 Ml Insuln.Pen) 0 units SUBCUT TID.WM.HS [facility]; Protocol Stop: 08/24/24 16:59 Last Admin: 09/01/23 12:51 Dose: 7 units Insulin Glargine (Insulin Glargine 300 Units/3 Ml Insuln.Pen) 45 units SUBCUT QHS [facility] Stop: 08/28/24 21:59 Last Admin: 08/31/23 21:47 Dose: 45 units Levothyroxine Sodium (Levothyroxine 100 Mcg Tablet) 100 mcg PO DAILY.0630 [facility] Stop: 08/26/24 06:29 Last Admin: 09/01/23 06:11 Dose: 100 mcg Liothyronine Sodium (Liothyronine 5 Mcg Tablet) 5 mcg PO QAM [facility] Stop: 08/25/24 08:59 Last Admin: 09/01/23 08:24 Dose: 5 mcg Metoprolol Succinate (Metoprolol Succinate 25 Mg Tab.Er.24h) 25 mg PO DAILY [facility] Stop: 08/31/24 08:59 Last Admin: [...] 11:31 Dose: 2 mg Multi-Ingredient Cream (Lanolin Alcohol/Mo/W.Pet/[place] (Minerin) 454 Gm Jar) 1 applic TOPICAL DAILY [facility] Stop: 08/30/24 08:59 Last Admin: [...] the dialysis unit on MWF schedule at [facility] (2) Severe sepsis: Plan: Patient has suspected [...] <Electronically signed by MD Marina Agudelo> 09/01/231316 [facility] Work Phone: 1(498) 724-690407-21-2024 Progress note Author Denice Dahl [facility] September 01, 2023 11:56am Note Date/Time September 01, 2023 11:5 6am [facility] [address] [place] [address] Hospitalist Progress Note Signed Patient: Seth Murphy MR#: [id number] : 1955 Acct:[id number] Age/Sex: 67 / M Adm Date: 4 Loc: 4N Room: [address] [place] [address] Type: ADM IN Attending Dr: Denice Dahl [...] oriented to place, time and person HEENT: [place] conjunctiva and NL buccal mucosa Neck: Supple, [...] Insuln.Pen SUBCUT 08/24/24 16:59 Not Given TID.WM.HS [facility] Protocol Insulin Glargine 45 units [...] 1 applic 07/20/24 09:00 09/01/23 08:24 Lanolin Alcohol/Mo/W.Pet/[place] (Minerin) 454 Gm Jar TOPICAL 08/30/24 08:59 [...] signed by Denice Dahl MD> 09/01/23 1156 [facility] Work Phone: 1(188) 837-446307-21-2024 Progress note Author Alfredo Acosta [facility] September 01, 2023 10:00am Note Date/Time September 01, 2023 10:0 0am [facility] [address] [place] [address] Infect. Disease Progress Note Signed Patient: Seth Murphy MR#: [id number] : 1955 Acct:[id number] Age/Sex: 67 / M Adm Date: 4 Loc: 4N Room: [id number] Type: ADM IN Attending Dr: Denice Dahl [...] 50 mls @ 100 mls/hr IV Q24H [facility] Last Admin: 08/31/23 15:00 Dose: 100 mls/hr Insulin Aspart (Insulin Aspart 300 Units/3 Ml Insuln.Pen) 0 units SUBCUT TID.[facility]; Protocol Stop: 08/24/24 16:59 Last Admin: 09/01/23 09:09 Dose: Not Given Insulin Glargine (Insulin Glargine 300 Units/3 Ml Insuln.Pen) 45 units SUBCUT QHS [facility] Stop: 08/28/24 21:59 Last Admin: 08/31/23 21:47 Dose: 45 units Levothyroxine Sodium (Levothyroxine 100 Mcg Tablet) 100 mcg PO DAILY.629 [facility] Stop: 08/26/24 06:29 Last Admin: 09/01/23 06:11 Dose: 100 mcg Liothyronine Sodium (Liothyronine 5 Mcg Tablet) 5 mcg PO QAM [facility] Stop: 08/25/24 08:59 Last Admin: 09/01/23 08:24 Dose: 5 mcg Metoprolol Succinate (Metoprolol Succinate 25 Mg Tab.Er.24h) 25 mg PO DAILY [facility] Stop: 08/31/24 08:59 Last Admin: [...] 11:31 Dose: 2 mg Multi-Ingredient Cream (Lanolin Alcohol/Mo/W.Pet/[place] (Minerin) 454 Gm Jar) 1 applic TOPICAL DAILY [facility] Stop: 08/30/24 08:59 Last Admin: 09/01/23 08:24 Dose: 1 applic Nystatin (Nystatin 100,000 Unit/Gram Powder 15 Gm Bottle) 1 applic TOPICAL DAILY [facility] Stop: 08/30/24 08:59 Last Admin: [...] alternative in a few weeks after IV halfway now being planned for discharge. Continue vancomycin and cefepime Documented By: Alfredo Acosta MD 09/01/23 0959 Signed By: <Electronically signed by MD Alfredo Acosta> 09/01/23 1000 [facility] Work Phone: 1(578) 729-128607-20-2024 Progress note Author Marina Agudelo [facility] August 31, 2023 1:45pm Note Date/Time August 31, 2023 1:40 pm [facility] [address] [place] [address] Nephrology Progress Note Signed Patient: Seth Murphy MR#: [id number] : 1955 Acct:[id number] Age/Sex: 67 / M Adm Date: 4 Loc: N Room: [address] [place] [address] Type: ADM IN Attending Dr: Denice Dahl MD Copies to: ~ Date of Service: 08/31/2023 Subjective Subjective Narrative: Mr. Murphy is a 67-year-old male with medical history significant for ESRD, DM, HTN, CAD, Peripheral vascular disease with amputation of left big toe. He presented to the [facility] due to suspected infection on his right foot. He is having increased pain and swelling over this past several days. On presentation to the ED he had fever, chills and confusion. He had no leukocytosis but was febrile, tachycardic, normotensive. Sodium 128, glucose 500, lactic acid 2.2. While at [facility] he was started on IV vancomycin and Rocephin. He was transferred here for dialysis and continued sepsis management. Upon arrival to [facility] he was noted to have a fever of 102, tachycardia, blood pressure 150s over 50s. He appeared septic. 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 Patient receives dialysis on MWF schedule at [facility] Nephrology was consulted for ESRD management and [...] 50 mls @ 100 mls/hr IV Q24H [facility] Last Infusion: 08/30/23 17:45 Dose: Infused Insulin Aspart (Insulin Aspart 300 Units/3 Ml Insuln.Pen) 0 units SUBCUT TID.WM.HS [facility]; Protocol Stop: 08/24/24 16:59 Last Admin: 08/31/23 12:22 Dose: 10 units Insulin Glargine (Insulin Glargine 300 Units/3 Ml Insuln.Pen) 45 units SUBCUT QHS [facility] Stop: 08/28/24 21:59 Last Admin: 08/30/23 21:05 Dose: 45 units Levothyroxine Sodium (Levothyroxine 100 Mcg Tablet) 100 mcg PO DAILY.0630 [facility] Stop: 08/26/24 06:29 Last Admin: 08/31/23 06:39 Dose: 100 mcg Liothyronine Sodium (Liothyronine 5 Mcg Tablet) 5 mcg PO QAM [facility] Stop: 08/25/24 08:59 Last Admin: 08/31/23 09:15 Dose: 5 mcg Metoprolol Succinate (Metoprolol Succinate 25 Mg Tab.Er.24h) 25 mg PO DAILY [facility] Stop: 08/31/24 08:59 Midodrine (Midodrine 5 Mg Tablet) 5 mg PO DAILY PRN PRN Reason: Hypotension Stop: 08/25/24 09:07 Last Admin: 08/26/23 14:59 Dose: 5 mg Morphine Sulfate (Morphine Sulfate 2 Mg/Ml Vial) 2 mg IV-PUSH Q4H PRN PRN Reason: Pain Scale 8 - 10 Last Admin: 08/27/23 11:31 Dose: 2 mg Multi-Ingredient Cream (Lanolin Alcohol/Mo/W.Pet/[place] (Minerin) 454 Gm Jar) 1 applic TOPICAL [...] the dialysis unit on MWF schedule at [facility] (2) Severe sepsis: Plan: Patient has suspected [...] point. Documented By: Marina Agudelo MD 08/31/23 6969 Signed By: <Electronically signed by MD Marina Agudelo> 08/31/23 [address] [facility] Work Phone: 1(299) 149-274107-20-2024 Progress note Author Denice Dahl [facility] August 31, 2023 8:56am Note Date/Time August 31, 2023 8:56 am [facility] [address] [place] [address] Hospitalist Progress Note Signed Patient: Seth Murphy MR#: [id number] : 1955 Acct:[id number] Age/Sex: 67 / M Adm Date: 4 Loc: 4N Room: [id number] Type: ADM IN Attending Dr: Denice Dahl [...] oriented to place, time and person HEENT: [place] conjunctiva and NL buccal mucosa Neck: Supple, [...] Multi-Ingredient Cream 1 applic 08/31/23 09:00 Lanolin Alcohol/Mo/W.Pet/[place] (Minerin) 454 Gm Jar TOPICAL 08/30/24 08:59 [...] signed by Denice Dahl MD> 08/31/23 0856 [facility] Work Phone: 1(284) 711-915707-20-2024 Progress note Author Alfredo Acosta [facility] August 31, 2023 8:46am Note Date/Time August 31, 2023 8:46 am [facility] [address] [place] [address] Infect. Disease Progress Note Signed Patient: Seth Murphy MR#: [id number] : 1955 Acct:[id number] Age/Sex: 67 / M Adm Date: 4 Loc: 4N Room: [address] [place] [address] Type: ADM IN Attending Dr: Denice Dahl [...] 5 Mg Tablet) 10 mg PO BID [facility] Stop: 09/04/23 09:01 Last Admin: 08/30/23 20:13 Dose: 10 mg Apixaban (Apixaban 5 Mg Tablet) 5 mg PO BID [facility] Stop: 09/03/24 20:59 Atorvastatin Calcium [...] 50 mls @ 100 mls/hr IV Q24H [facility] Last Infusion: 08/30/23 17:45 Dose: Infused Insulin Aspart (Insulin Aspart 300 Units/3 Ml Insuln.Pen) 0 units SUBCUT TID.WM.HS [facility]; Protocol Stop: 08/24/24 16:59 Last Admin: 08/30/23 21:06 Dose: 14 units Insulin Glargine (Insulin Glargine 300 Units/3 Ml Insuln.Pen) 45 units SUBCUT QHS [facility] Stop: 08/28/24 21:59 Last Admin: 08/30/23 21:05 Dose: 45 units Levothyroxine Sodium (Levothyroxine 100 Mcg Tablet) 100 mcg PO DAILY.0630 [facility] Stop: 08/26/24 06:29 Last Admin: 08/31/23 06:39 Dose: 100 mcg Liothyronine Sodium (Liothyronine 5 Mcg Tablet) 5 mcg PO QAM [facility] Stop: 08/25/24 08:59 Last Admin: 08/30/23 08:15 Dose: 5 mcg Metoprolol Tartrate (Metoprolol Tartrate 25 Mg Tablet) 25 mg PO BID [facility] Stop: 08/25/24 17:59 Midodrine (Midodrine 5 Mg Tablet) 5 mg PO DAILY PRN PRN Reason: Hypotension Stop: 08/25/24 09:07 Last Admin: 08/26/23 14:59 Dose: 5 mg Morphine Sulfate (Morphine Sulfate 2 Mg/Ml Vial) 2 mg IV-PUSH Q4H PRN PRN Reason: Pain Scale 8 - 10 Last Admin: 08/27/23 11:31 Dose: 2 mg Multi-Ingredient Cream (Lanolin Alcohol/Mo/W.Pet/[place] (Minerin) 454 Gm Jar) 1 applic TOPICAL DAILY [facility] Stop: 08/30/24 08:59 Nystatin (Nystatin 100,000 Unit/Gram Powder 15 Gm Bottle) 1 applic TOPICAL DAILY [facility] Stop: 08/30/24 08:59 Paricalcitol (Paricalcitol 10 Mcg/2 Ml Vial) 7 mcg IV-PUSH MoWeFr@1000 [facility] Stop: 08/25/24 09:59 Last Admin: [...] signed by MD Alfredo Acosta> 08/31/23 0846 [facility] Work Phone: 1(998) 160-206707-19-2024 Progress note Author Marina [facility] August 30, 2023 12:45pm Note Date/Time August 30, 2023 12:4 5pm [facility] [address] [place] [address] Nephrology Progress Note Signed Patient: Seth Murphy MR#: [id number] : 1955 Acct:[id number] Age/Sex: 67 / M Adm Date: 4 Loc: Room: [address] [place] [address] Type: ADM IN Attending Dr: Denice Dahl MD Copies to: ~ Date of Service: 08/30/2023 Subjective Subjective Narrative: Mr. Murphy is a 67-year-old male with medical history significant for ESRD, DM, HTN, CAD, Peripheral vascular disease with amputation of left big toe. He presented to the [facility] due to suspected infection on his right foot. He is having increased pain and swelling over this past several days. On presentation to the ED he had fever, chills and confusion. He had no leukocytosis but was febrile, tachycardic, normotensive. Sodium 128, glucose 500, lactic acid 2.2. While at [facility] he was started on IV vancomycin and Rocephin. He was transferred here for dialysis and continued sepsis management. Upon arrival to [facility] he was noted to have a fever of 102, tachycardia, blood pressure 150s over 50s. He appeared septic. 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 Patient receives dialysis on MWF schedule at [facility] Nephrology was consulted for ESRD management and [...] Units/3 Ml Insuln.Pen) 45 units SUBCUT QHS [facility] Stop: 08/28/24 21:59 Last Admin: 08/29/23 22:03 Dose: 45 units Levothyroxine Sodium (Levothyroxine 100 Mcg Tablet) 100 mcg PO DAILY.0630 [facility] Stop: 08/26/24 06:29 Last Admin: 08/30/23 06:11 Dose: 100 mcg Liothyronine Sodium (Liothyronine 5 Mcg Tablet) 5 mcg PO QAM [facility] Stop: 08/25/24 08:59 Last Admin: 08/30/23 08:15 Dose: 5 mcg Metoprolol Tartrate (Metoprolol Tartrate 25 Mg Tablet) 25 mg PO BID [facility] Stop: 08/25/24 17:59 Midodrine (Midodrine [...] Mcg/2 Ml Vial) 7 mcg IV-PUSH MoWeFr@1000 [facility] Stop: 08/25/24 09:59 Last Admin: [...] the dialysis unit on MWF schedule at [facility] (2) Severe sepsis: Plan: Patient has suspected [...] <Electronically signed by MD Marina Agudelo> 08/30/23 1243 [facility] Work Phone: 1(237) 295-864807-19-2024 Progress note Author Felisa Win [facility] August 30, 2023 12:05pm Note Date/Time August 30, 2023 11:3 6am [facility] [address] [place] [address] Podiatry Progress Note Signed Patient: Seth Murphy MR#: [id number] : 1955 Acct:[id number] Age/Sex: 67 / M Adm Date: 4 Loc: 4N Room: [id number] Type: ADM IN Attending Dr: Denice Dahl [...] discharge once antibiotic therapy is finalized with [facility] for dressing changes to the right foot which he has had established. He is a patient of Dr. Schwarz at [facility] and would like to [...] <Electronically signed by ISAIAH Win> 08/30/23 1205 [facility] Work Phone: 1(930) 162-606107-19-2024 Progress note Author Alfredo Acosta [facility] August 30, 2023 11:37am Note Date/Time August 30, 2023 11:3 8am [facility] [address] [place] [address] Infect. Disease Progress Note Signed Patient: Seth Murphy MR#: [id number] : 1955 Acct:[id number] Age/Sex: 67 / M Adm Date: 4 Loc: 4N Room: [address] [place] [address] Type: ADM IN Attending Dr: Denice Dahl [...] Units/3 Ml Insuln.Pen) 0 units SUBCUT TID.WM.HS [facility]; Protocol Stop: 08/24/24 16:59 Last Admin: 08/30/23 08:15 Dose: 4 units Insulin Glargine (Insulin Glargine 300 Units/3 Ml Insuln.Pen) 45 units SUBCUT QHS [facility] Stop: 08/28/24 21:59 Last Admin: 08/29/23 22:03 Dose: 45 units Levothyroxine Sodium (Levothyroxine 100 Mcg Tablet) 100 mcg PO DAILY.0630 [facility] Stop: 08/26/24 06:29 Last Admin: 08/30/23 06:11 Dose: 100 mcg Liothyronine Sodium (Liothyronine 5 Mcg Tablet) 5 mcg PO QAM [facility] Stop: 08/25/24 08:59 Last Admin: 08/30/23 08:15 Dose: 5 mcg Metoprolol Tartrate (Metoprolol Tartrate 25 Mg Tablet) 25 mg PO BID [facility] Stop: 08/25/24 17:59 Midodrine (Midodrine [...] Mcg/2 Ml Vial) 7 mcg IV-PUSH MoWeFr@1000 [facility] Stop: 08/25/24 09:59 Last Admin: [...] <Electronically signed by MD Alfredo Acosta> 08/30/23 2357 [facility] Work Phone: [phone] 433-761407-19-2024 Progress note Author Denice Dahl [facility] August 30, 2023 10:25am Note Date/Time August 30, 2023 10:2 5am [facility] [address] [place] [address] Hospitalist Progress Note Signed Patient: Seth Murphy MR#: [id number] : 1955 Acct:[id number] Age/Sex: 67 / M Adm Date: 4 Loc: 4N Room: [address] [place] [address] Type: ADM IN Attending Dr: Denice Dahl MD Copies to: ~ Date of Service: 08/30/2023 Exam Physical Exam Vital Signs: Temp Pulse Resp BP Pulse Ox O2 Del Method 98.2 F 68 18 117/58 L 98 Room Air 08/30/23 10:15 08/30/23 10:19 08/30/23 10:15 08/30/23 10:19 08/30/23 10:15 08/30/23 10:15 Narrative: [pt is awake and alert. oriented to place, time and person HEENT: [place] conjunctiva and NL buccal mucosa Neck: Supple, [...] <Electronically signed by Denice Dahl MD> 08/30/23 [facility] Work Phone: 1(310) 484-304007-18-2024 Progress note Author DAVID Pop [facility] August 29, 2023 12:38pm Note Date/Time August 29, 2023 12:3 8pm [facility] [address] [place] [address] Podiatry Progress Note Signed Patient: Seth Murphy MR#: [id number] : 1955 Acct:[id number] Age/Sex: 67 / M Adm Date: 4 Loc: 4N Room: [address] [place] [address] Type: ADM IN Attending Dr: Denice Dahl [...] By: <Electronically signed by ISAIAH Pop> 08/29/23 2638 [facility] Work Phone: 1([phone] 953-842407-18-2024 Progress note Author Marina Agudelo [facility] August 29, 2023 11:36am Note Date/Time August 29, 2023 11:3 6am [facility] [address] [place] [address] Nephrology Progress Note Signed Patient: Seth Murphy MR#: [id number] : 1955 Acct:[id number] Age/Sex: 67 / M Adm Date: 4 Loc: 4N Room: [id number] Type: ADM IN Attending Dr: Denice Dahl MD Copies to: ~ Date of Service: 08/29/2023 Subjective Subjective Narrative: Mr. Murphy is a 67-year-old male with medical history significant for ESRD, DM, HTN, CAD, Peripheral vascular disease with amputation of left big toe. He presented to the [facility] due to suspected infection on his right foot. He is having increased pain and swelling over this past several days. On presentation to the ED he had fever, chills and confusion. He had no leukocytosis but was febrile, tachycardic, normotensive. Sodium 128, glucose 500, lactic acid 2.2. While at [facility] he was started on IV vancomycin and Rocephin. He was transferred here for dialysis and continued sepsis management. Upon arrival to [facility] he was noted to have a fever of 102, tachycardia, blood pressure 150s over 50s. He appeared septic. 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 Patient receives dialysis on MWF schedule at [facility] Nephrology was consulted for ESRD management and [...] Units/3 Ml Insuln.Pen) 0 units SUBCUT TID.WM.HS [facility]; Protocol Stop: 08/24/24 16:59 Last Admin: 08/29/23 08:09 Dose: 7 units Insulin Glargine (Insulin Glargine 300 Units/3 Ml Insuln.Pen) 45 units SUBCUT QHS [facility] Stop: 08/28/24 21:59 Levothyroxine Sodium (Levothyroxine 100 Mcg Tablet) 100 mcg PO DAILY.0630 [facility] Stop: 08/26/24 06:29 Last Admin: 08/29/23 07:44 Dose: Not Given Liothyronine Sodium (Liothyronine 5 Mcg Tablet) 5 mcg PO QAM [facility] Stop: 08/25/24 08:59 Last Admin: 08/29/23 08:09 Dose: 5 mcg Metoprolol Tartrate (Metoprolol Tartrate 25 Mg Tablet) 25 mg PO BID [facility] Stop: 08/25/24 17:59 Midodrine (Midodrine [...] Reagan Burger M.D.08/29/2023 8:19 AM Dictation Location: [place] [address] Any impression(s) listed above is documentation that [...] the dialysis unit on MWF schedule at [facility] (2) Severe sepsis: Plan: Patient has suspected [...] <Electronically signed by MD Marina Agudelo> 08/29/23 2061 [facility] Work Phone: 1([phone] 142-534207-18-2024 Progress note Author Denice Dahl [facility] August 29, 2023 10:55am Note Date/Time August 29, 2023 10:5 5am [facility] [address] [place] [address] Hospitalist Progress Note Signed Patient: Seth Murphy MR#: [id number] : 1955 Acct:[id number] Age/Sex: 67 / M Adm Date: 4 Loc: 4N Room: [address] [place] [address] Type: ADM IN Attending Dr: Denice Dahl [...] oriented to place, time and person HEENT: [place] conjunctiva and NL buccal mucosa Neck: Supple, [...] Tablet PO 08/26/24 06:29 Not Given DAILY.0630 [facility] Liothyronine Sodium 5 mcg 08/26/23 09:00 08/29/23 [...] <Electronically signed by Denice Dahl MD> 08/29/23 1052 [facility] Work Phone: [phone] 165-652807-18-2024 Progress note Author Alfredo Acosta [facility] August 29, 2023 9:02am Note Date/Time August 29, 2023 8:50 am [facility] [address] [place] [address] Infect. Disease Progress Note Signed Patient: Seth Murphy MR#: [id number] : 1955 Acct:[id number] Age/Sex: 67 / M Adm Date: 4 Loc: 4N Room: [address] [place] [address] Type: ADM IN Attending Dr: Denice Dahl [...] 100 mls @ 25 mls/hr IV Q12H [facility] Last Admin: 08/28/23 23:42 Dose: 25 mls/hr Sodium Chloride (0.9% Sodium Chloride 1,000 Ml) 1,000 mls @ 0 mls/hr MISCELLANE.Q0M PRN PRN Reason: Dialysis Stop: 08/25/24 09:07 Last Infusion: 08/28/23 09:52 Dose: Infused Lactated Ringer's (Lactated Ringers) 1,000 mls @ 75 mls/hr IV .[id number] [facility] Stop: 08/29/23 10:19 Last Admin: 08/28/23 23:42 Dose: 75 mls/hr Insulin Aspart (Insulin Aspart 300 Units/3 Ml Insuln.Pen) 0 units SUBCUT TID.WM.HS [facility]; Protocol Stop: 08/24/24 16:59 Last Admin: 08/29/23 08:09 Dose: 7 units Insulin Glargine (Insulin Glargine 300 Units/3 Ml Insuln.Pen) 40 units SUBCUT QHS [facility] Stop: 08/24/24 21:59 Last Admin: 08/28/23 21:43 Dose: 40 units Levothyroxine Sodium (Levothyroxine 100 Mcg Tablet) 100 mcg PO DAILY.629 [facility] Stop: 08/26/24 06:29 Last Admin: 08/29/23 07:44 Dose: Not Given Liothyronine Sodium (Liothyronine 5 Mcg Tablet) 5 mcg PO QAM [facility] Stop: 08/25/24 08:59 Last Admin: 08/29/23 08:09 Dose: 5 mcg Metoprolol Tartrate (Metoprolol Tartrate 25 Mg Tablet) 25 mg PO BID [facility] Stop: 08/25/24 17:59 Midodrine (Midodrine [...] Mcg/2 Ml Vial) 7 mcg IV-PUSH MoWeFr@1000 [facility] Stop: 08/25/24 09:59 Last Admin: [...] signed by MD Alfredo Acosta> 08/29/23 0902 [facility] Work Phone: [phone] Progress note Author Marina [facility] August 28, 2023 1:59pm Note Date/Time August 28, 2023 1:59 pm [facility] [address] [place] [address] Nephrology Progress Note Signed Patient: Seth Murphy MR#: [id number] : 1955 Acct:[id number] Age/Sex: 67 / M Adm Date: 4 Loc: 4 Room: 0F6731-9 Type: ADM IN Attending Dr: Denice Dahl MD Copies to: ~ Date of Service: 08/28/2023 Subjective Subjective Narrative: Mr. Murphy is a 67-year-old male with medical history significant for ESRD, DM, HTN, CAD, Peripheral vascular disease with amputation of left big toe. He presented to the [facility] due to suspected infection on his right foot. He is having increased pain and swelling over this past several days. On presentation to the ED he had fever, chills and confusion. He had no leukocytosis but was febrile, tachycardic, normotensive. Sodium 128, glucose 500, lactic acid 2.2. While at [facility] he was started on IV vancomycin and Rocephin. He was transferred here for dialysis and continued sepsis management. Upon arrival to [facility] he was noted to have a fever of 102, tachycardia, blood pressure 150s over 50s. He appeared septic. 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 Patient receives dialysis on MWF schedule at [facility] Nephrology was consulted for ESRD management and [...] 100 mls @ 25 mls/hr IV Q12H [facility] Last Admin: 08/28/23 00:35 Dose: 25 mls/hr Sodium Chloride (0.9% Sodium Chloride 1,000 Ml) 1,000 mls @ 0 mls/hr MISCELLANE.Q0M PRN PRN Reason: Dialysis Stop: 08/25/24 09:07 Last Infusion: 08/28/23 09:52 Dose: Infused Lactated Ringer's (Lactated Ringers) 1,000 mls @ 75 mls/hr IV .[id number] [facility] Stop: 08/28/23 22:04 Vancomycin HCl (Vancomycin) 0.75 gm in 250 mls @ 250 mls/hr IV ONCE ONE Stop: 08/28/23 16:29 Insulin Aspart (Insulin Aspart 300 Units/3 Ml Insuln.Pen) 0 units SUBCUT TID.WM.HS [facility]; Protocol Stop: 08/24/24 16:59 Last Admin: 08/28/23 08:50 Dose: Not Given Insulin Glargine (Insulin Glargine 300 Units/3 Ml Insuln.Pen) 40 units SUBCUT QHS [facility] Stop: 08/24/24 21:59 Last Admin: 08/27/23 22:44 Dose: 40 units Levothyroxine Sodium (Levothyroxine 100 Mcg Tablet) 100 mcg PO DAILY.0630 [facility] Stop: 08/26/24 06:29 Last Admin: 08/28/23 06:55 Dose: 100 mcg Liothyronine Sodium (Liothyronine 5 Mcg Tablet) 5 mcg PO QAM [facility] Stop: 08/25/24 08:59 Last Admin: 08/27/23 10:22 Dose: 5 mcg Metoprolol Tartrate (Metoprolol Tartrate 25 Mg Tablet) 25 mg PO BID [facility] Stop: 08/25/24 17:59 Midodrine (Midodrine [...] Mcg/2 Ml Vial) 7 mcg IV-PUSH MoWeFr@1000 [facility] Stop: 08/25/24 09:59 Last Admin: [...] Uriah Hays M.D.08/27/2023 3:55 PM Dictation Location: [place] [address] Any impression(s) listed above is documentation that [...] the dialysis unit on MWF schedule at [facility] (2) Severe sepsis: Plan: Patient has suspected [...] <Electronically signed by MD Marina Agudelo> 08/28/23 5124 [facility] Work Phone: [phone] 958-704707-17-2024 Progress note Author Alfredo Acosta [facility] August 28, 2023 9:22am Note Date/Time August 28, 2023 9:22 am [facility] [address] [place] [address] Infect. Disease Progress Note Signed Patient: Seth Murphy MR#: [id number] : 1955 Acct:[id number] Age/Sex: 67 / M Adm Date: 4 Loc: 4N Room: [id number] Type: ADM IN Attending Dr: Denice Dahl [...] Ringers) 1,000 mls @ 75 mls/hr IV .[id number] [facility] Stop: 08/28/23 22:04 Vancomycin HCl (Vancomycin) 0.75 gm in 250 mls @ 250 mls/hr IV ONCE ONE Stop: 08/28/23 16:29 Insulin Aspart (Insulin Aspart 300 Units/3 Ml Insuln.Pen) 0 units SUBCUT TID.WM.HS [facility]; Protocol Stop: 08/24/24 16:59 Last Admin: 08/28/23 08:50 Dose: Not Given Insulin Glargine (Insulin Glargine 300 Units/3 Ml Insuln.Pen) 40 units SUBCUT QHS [facility] Stop: 08/24/24 21:59 Last Admin: 08/27/23 22:44 Dose: 40 units Levothyroxine Sodium (Levothyroxine 100 Mcg Tablet) 100 mcg PO DAILY.0630 [facility] Stop: 08/26/24 06:29 Last Admin: 08/28/23 06:55 Dose: 100 mcg Liothyronine Sodium (Liothyronine 5 Mcg Tablet) 5 mcg PO QAM [facility] Stop: 08/25/24 08:59 Last Admin: 08/27/23 10:22 Dose: 5 mcg Metoprolol Tartrate (Metoprolol Tartrate 25 Mg Tablet) 25 mg PO BID [facility] Stop: 08/25/24 17:59 Midodrine (Midodrine [...] Mcg/2 Ml Vial) 7 mcg IV-PUSH MoWeFr@1000 [facility] Stop: 08/25/24 09:59 Last Admin: [...] <Electronically signed by MD Alfredo Acosta> 08/28/23921 [facility] Work Phone: [phone]) 589-828907-17-2024 Progress note Author Denice Dahl [facility] August 28, 2023 8:40am Note Date/Time August 28, 2023 8:40 am [facility] [address] [place] [address] Hospitalist Progress Note Signed Patient: Seht Murphy MR#: [id number] : 1955 Acct:[id number] Age/Sex: 67 / M Adm Date: 4 Loc: 4N Room: [address] [place] [address] Type: ADM IN Attending Dr: Denice Dahl [...] oriented to place, time and person HEENT: [place] conjunctiva and NL buccal mucosa Neck: Supple, [...] 60 Mcg/Ml Vial IV-PUSH 08/27/24 09:59 We@1000 [facility] Protocol Dextrose 0 gm 08/25/23 [...] 08/28/23 08:45 Lactated Ringers IV 08/28/23 22:04 .[id number] Insulin Aspart 0 units 08/25/23 17:00 [...] <Electronically signed by Denice Dahl MD> 08/28/23839 [facility] Work Phone: [phone] Progress note Author DAVID Pop [facility] August 27, 2023 8:40pm Note Date/Time August 27, 2023 8:36 pm [facility] [address] [place] [address] Podiatry Progress Note Signed Patient: Seth Murphy MR#: [id number] : 1955 Acct:[id number] Age/Sex: 67 / M Adm Date: 4 Loc: Room: [address] [place] [address] Type: ADM IN Attending Dr: Denice Dahl [...] is he has been a patient of [employer] or ours in the past he was [...] By: <Electronically signed by ISAIAH Pop> 08/27/232039 [facility] Work Phone: [phone] 172-583207-16-2024 Progress note Author Marina Agudelo [facility] August 27, 2023 2:32pm Note Date/Time August 27, 2023 2:32 pm [facility] [address] [place] [address] Nephrology Progress Note Signed Patient: Seth Murphy MR#: [id number] : 1955 Acct:[id number] Age/Sex: 67 / M Adm Date: 4 Loc: Room: [address] [place] [address] Type: ADM IN Attending Dr: Denice Dahl MD Copies to: ~ Date of Service: 08/27/2023 Subjective Subjective Narrative: Mr. Murphy is a 67-year-old male with medical history significant for ESRD, DM, HTN, CAD, Peripheral vascular disease with amputation of left big toe. He presented to the [facility] due to suspected infection on his right foot. He is having increased pain and swelling over this past several days. On presentation to the ED he had fever, chills and confusion. He had no leukocytosis but was febrile, tachycardic, normotensive. Sodium 128, glucose 500, lactic acid 2.2. While at [facility] he was started on IV vancomycin and Rocephin. He was transferred here for dialysis and continued sepsis management. Upon arrival to [facility] he was noted to have a fever of 102, tachycardia, blood pressure 150s over 50s. He appeared septic. 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 Patient receives dialysis on MWF schedule at [facility].. Nephrology was consulted for ESRD [...] 40 Mg Tablet) 40 mg PO QPM [facility] Stop: 08/24/24 20:59 Last Admin: 08/26/23 22:35 Dose: 40 mg Darbepoetin Thomas (Darbepoetin Thomas In Polysorbat 60 Mcg/Ml Vial) 60 mcg IV-PUSHWe@1000 [facility]; Protocol Stop: 08/27/24 09:59 Dextrose (Dextrose 50% In Water 25 Gm/50 Ml Syringe) 0 gm IV-PUSH PRN PRN PRN Reason: Hypoglycemia Stop: 08/24/24 15:28 Enoxaparin Sodium (Enoxaparin 50 Mg/0.5 Ml From Multidose Vial) 50 mg SUBCUT Q12HR.10A.10P [facility] Stop: 08/25/24 10:29 Last Admin: [...] 100 mls @ 25 mls/hr IV Q12H [facility] Last Admin: 08/27/23 01:29 Dose: Not Given Sodium Chloride (0.9% Sodium Chloride 1,000 Ml) 1,000 mls @ 0 mls/hr MISCELLANE.Q0M PRN PRN Reason: Dialysis Stop: 08/25/24 09:07 Last Admin: 08/26/23 15:35 Dose: 999 mls/hr Insulin Aspart (Insulin Aspart 300 Units/3 Ml Insuln.Pen) 0 units SUBCUT TID.WM.HS [facility]; Protocol Stop: 08/24/24 16:59 Last Admin: 08/27/23 08:48 Dose: Not Given Insulin Glargine (Insulin Glargine 300 Units/3 Ml Insuln.Pen) 40 units SUBCUT QHS [facility] Stop: 08/24/24 21:59 Last Admin: 08/26/23 22:36 Dose: 40 units Levothyroxine Sodium (Levothyroxine 100 Mcg Tablet) 100 mcg PO DAILY.0630 [facility] Stop: 08/26/24 06:29 Last Admin: 08/27/23 06:56 Dose: 100 mcg Liothyronine Sodium (Liothyronine 5 Mcg Tablet) 5 mcg PO QAM [facility] Stop: 08/25/24 08:59 Last Admin: 08/27/23 10:22 Dose: 5 mcg Metoprolol Tartrate (Metoprolol Tartrate 25 Mg Tablet) 25 mg PO BID [facility] Stop: 08/25/24 17:59 Midodrine (Midodrine 5 Mg Tablet) 5 mg PO DAILY PRN PRN Reason: Hypotension Stop: 08/25/24 09:07 Last Admin: 08/26/23 14:59 Dose: 5 mg Morphine Sulfate (Morphine Sulfate 2 Mg/Ml Vial) 2 mg IV-PUSH Q4H PRN PRN Reason: Pain Scale 8 - 10 Paricalcitol (Paricalcitol 10 Mcg/2 Ml Vial) 7 mcg IV-PUSH MoWeFr@1000 [facility] Stop: 08/25/24 09:59 Last Admin: [...] Guicho Chun MD08/26/2023 3:09 PM Dictation Location: [facility]-DOC-04 Venous Duplex 08/26/23 15:32 IMPRESSION: Positive study for right leg chronic DVT. Lymph nodes identified inthe right groin. Impression dictated by: Guicho Chun MD08/26/2023 3:07 PM Dictation Location: [facility]-DOC-04 Any impression(s) listed above is documentation that was entered by the reading physician into a diagnostic report(s) for eSth Murphy. I have reviewed the report(s) and am incorporating any findings in the treatment plan of this patient where applicable. A&P - Nephrology Assessment/Plan (1) ESRD (end stage renal disease): Plan: Patient has ESRD related to diabetic nephropathy and hypertensive nephrosclerosis. He received hemodialysis in the dialysis unit on MWF schedule at [facility] (2) Severe sepsis: Plan: Patient has suspected [...] <Electronically signed by MD Marina Agudelo> 08/27/23 4226 [facility] Work Phone: [phone]) [phone] Progress note Author Denice Dahl [facility] August 27, 2023 8:55am Note Date/Time August 27, 2023 8:55 am [facility] [address] [place] [address] Hospitalist Progress Note Signed Patient: Seth Murphy MR#: [id number] : 1955 Acct:[id number] Age/Sex: 67 / M Adm Date: 4 Loc: 4N Room: [address] [place] [address] Type: ADM IN Attending Dr: Denice Dahl [...] oriented to place, time and person HEENT: [place] conjunctiva and NL buccal mucosa Neck: Supple, [...] 60 Mcg/Ml Vial IV-PUSH 08/27/24 09:59 We@1000 [facility] Protocol Dextrose 0 gm 08/25/23 [...] signed by Denice Dahl MD> 08/27/23 0855 [facility] Work Phone: [phone] 926-906507-16-2024 Progress note Author Alfredo Acosta [facility] August 27, 2023 8:38am Note Date/Time August 27, 2023 8:38 am [facility] [address] [place] [address] Infect. Disease Progress Note Signed Patient: Seth Murphy MR#: [id number] : 1955 Acct:[id number] Age/Sex: 67 / M Adm Date: 4 Loc: 4N Room: [address] [place] [address] Type: ADM IN Attending Dr: Denice Dahl [...] 100 mls @ 25 mls/hr IV Q12H [facility] Last Admin: 08/27/23 01:29 Dose: Not Given Sodium Chloride (0.9% Sodium Chloride 1,000 Ml) 1,000 mls @ 0 mls/hr MISCELLANE.Q0M PRN PRN Reason: Dialysis Stop: 08/25/24 09:07 Last Admin: 08/26/23 15:35 Dose: 999 mls/hr Insulin Aspart (Insulin Aspart 300 Units/3 Ml Insuln.Pen) 0 units SUBCUT TID.WM.HS [facility]; Protocol Stop: 08/24/24 16:59 Last Admin: 08/26/23 22:57 Dose: 14 units Insulin Glargine (Insulin Glargine 300 Units/3 Ml Insuln.Pen) 40 units SUBCUT QHS [facility] Stop: 08/24/24 21:59 Last Admin: 08/26/23 22:36 Dose: 40 units Levothyroxine Sodium (Levothyroxine 100 Mcg Tablet) 100 mcg PO DAILY.0630 [facility] Stop: 08/26/24 06:29 Last Admin: 08/27/23 06:56 Dose: 100 mcg Liothyronine Sodium (Liothyronine 5 Mcg Tablet) 5 mcg PO QAM [facility] Stop: 08/25/24 08:59 Last Admin: 08/26/23 09:53 Dose: 5 mcg Metoprolol Tartrate (Metoprolol Tartrate 25 Mg Tablet) 25 mg PO BID [facility] Stop: 08/25/24 17:59 Midodrine (Midodrine 5 Mg Tablet) 5 mg PO DAILY PRN PRN Reason: Hypotension Stop: 08/25/24 09:07 Last Admin: 08/26/23 14:59 Dose: 5 mg Morphine Sulfate (Morphine Sulfate 2 Mg/Ml Vial) 2 mg IV-PUSH Q4H PRN PRN Reason: Pain Scale 8 - 10 Paricalcitol (Paricalcitol 10 Mcg/2 Ml Vial) 7 mcg IV-PUSH MoWeFr@1000 [facility] Stop: 08/25/24 09:59 Last Admin: [...] signed by MD Alfredo Acosta> 08/27/23 0838 [facility] Work Phone: [phone] Consult note Author CWCristo Pop [facility] August 26, 2023 7:13pm Note Date/Time August 26, 2023 7:01 pm [facility] [address] [place] [address] Podiatry Consult Note Signed Patient: Seth Murphy MR#: [id number] : 1955 Acct:[id number] Age/Sex: 67 / M Adm Date: 4 Loc: Room: [address] [place] [address] Type: ADM IN Attending Dr: Denice Dahl [...] Patient had been seen recently at the [facility] with Dr. Schwarz, who [...] noted below or in HPI [facility] Medical History MRSA bacteremia Cellulitis of left [...] By: Romeo Pop,ISAIAH, MS, CWS 08/11 07/04 4217 Signed By: <Electronically signed by SIAIAH Pop> 08/26/23 765 [facility] Work Phone: 1(149) 352-722307-15-2024 Consult note Author Marina Agudelo [facility] August 26, 2023 2:32pm Note Date/Time August 26, 2023 2:22 pm [facility] [address] [place] [address] Nephrology Consult Note Signed Patient: Seth Murphy MR#: [id number] : 1955 Acct:[id number] Age/Sex: 67 / M Adm Date: 4 Loc: 4N Room: 4M9830-0 Type: ADM IN Attending Dr: Denice Dahl [...] left big toe. He presented to the [facility] due to suspected infection on his right foot. He is having increased pain and swelling over this past several days. On presentation to the ED he had fever, chills and confusion. He had no leukocytosis but was febrile, tachycardic, normotensive. Sodium 128, glucose 500, lactic acid 2.2. While at [facility] he was started on IV vancomycin and Rocephin. He was transferred here for dialysis and continued sepsis management. Upon arrival to [facility] he was noted to have a fever of 102, tachycardia, blood pressure 150s over 50s. He appeared septic. 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 Patient receives dialysis on MWF schedule at [facility] Nephrology was consulted for ESRD management and [...] noted below or in HPI [facility] Medical History MRSA bacteremia Cellulitis of left [...] 100 mls @ 25 mls/hr IV Q12H [facility] Last Admin: 08/26/23 00:28 Dose: 25 mls/hr Sodium Chloride (0.9% Sodium Chloride 1,000 Ml) 1,000 mls @ 0 mls/hr MISCELLANE.Q0M PRN PRN Reason: Dialysis Stop: 08/25/24 09:07 Sodium Chloride (0.9% Sodium Chloride 1,000 Ml) 1,000 mls @ 70 mls/hr IV .[id number] [facility] Stop: 08/27/23 00:17 Last Admin: 08/26/23 09:56 Dose: 70 mls/hr Insulin Aspart (Insulin Aspart 300 Units/3 Ml Insuln.Pen) 0 units SUBCUT TID.WM.HS [facility]; Protocol Stop: 08/24/24 16:59 Last Admin: 08/26/23 09:52 Dose: 3 units Insulin Glargine (Insulin Glargine 300 Units/3 Ml Insuln.Pen) 40 units SUBCUT QHS [facility] Stop: 08/24/24 21:59 Last Admin: 08/25/23 21:51 Dose: 40 units Levothyroxine Sodium (Levothyroxine 100 Mcg Tablet) 100 mcg PO DAILY.0630 [facility] Stop: 08/26/24 06:29 Liothyronine Sodium (Liothyronine 5 Mcg Tablet) 5 mcg PO QAM [facility] Stop: 08/25/24 08:59 Last Admin: 08/26/23 09:53 Dose: 5 mcg Midodrine (Midodrine 5 Mg Tablet) 5 mg PO DAILY PRN PRN Reason: Hypotension Stop: 08/25/24 09:07 Morphine Sulfate (Morphine Sulfate 2 Mg/Ml Vial) 2 mg IV-PUSH Q4H PRN PRN Reason: Pain Scale 8 - 10 Paricalcitol (Paricalcitol 10 Mcg/2 Ml Vial) 7 mcg IV-PUSH MoWeFr@1000 [facility] Stop: 08/25/24 09:59 Prochlorperazine Edisylate [...] Reagan Burger M.D.08/25/2023 5:38 PM Dictation Location: [place] [address] Any impression(s) listed above is documentation that [...] the dialysis unit on MWF schedule at [facility]. (2) Ventricular bigeminy: Plan: -Patient has ventricular [...] <Electronically signed by MD Marina Agudelo> 08/26/23 1434 [facility] Work Phone: 1(413) 786-500707-15-2024 Progress note Author Denice Dahl [facility] August 26, 2023 9:50am Note Date/Time August 26, 2023 9:50 am [facility] [address] [place] [address] Hospitalist Progress Note Signed Patient: Seth Murphy MR#: [id number] : 1955 Acct:[id number] Age/Sex: 67 / M Adm Date: 4 Loc: 4N Room: [address] [place] [address] Type: ADM IN Attending Dr: Denice Dahl MD Copies to: ~ Date of Service: 08/26/2023 Subjective Subjective Narrative: Patient is a 67 year old male with past medical history of poorly controlled type 2 diabetes, hypertension, coronary artery disease, ESRD on dialysis Saturday, and asthma who presented to [facility] due to suspectedinfected of his left foot. Patient has been complaining of increase pain and swelling of left foot over the past several days. He presented to [facility] withfevers, chills, confusion, chest x-ray with no acute pathology. He was given IVvancomycin and Rocephin at the [facility], no leukocytosis found however fever at [facility] 101 with tachycardia however blood pressure remained [...] oriented to place, time and person HEENT: [place] conjunctiva and NL buccal mucosa Neck: Supple, [...] 60 Mcg/Ml Vial IV-PUSH 08/27/24 09:59 We@1000 [facility] Protocol Dextrose 0 gm 08/25/23 [...] Sodium Chloride 1,000 Ml IV 08/27/23 00:17 .[id number] GEENA Insulin Aspart 0 units 08/25/23 17:00 [...] Mcg/2 Ml Vial IV-PUSH 08/25/24 09:59 MoWeFr@1000 [facility] Prochlorperazine Edisylate 5 mg 08/25/23 15:26 Prochlorperazine [...] <Electronically signed by Denice Dahl MD> 08/26/23 0964 [facility] Work Phone: 1(885) 278-217407-15-2024 Consult note Author Alfredo Acosta [facility] August 26, 2023 9:13am Note Date/Time August 26, 2023 9:13 am [facility] [address] [place] [address] Infect. Disease Consult Note Signed Patient: Seth Murphy MR#: [id number] : 1955 Acct:[id number] Age/Sex: 67 / M Adm Date: 4 Loc: 4N Room: [address] [place] [address] Type: ADM IN Attending Dr: Denice Dahl [...] noted below or in HPI [facility] Medical History MRSA bacteremia Cellulitis of left [...] 40 Mg Tablet) 40 mg PO QPM [facility] Stop: 08/24/24 20:59 Last Admin: 08/25/23 21:49 Dose: 40 mg Dextrose (Dextrose 50% In Water 25 Gm/50 Ml Syringe) 0 gm IV-PUSH PRN PRN PRN Reason: Hypoglycemia Stop: 08/24/24 15:28 Glucose (Dextrose 40% Gel 15 Gm Tube) 0 gm PO PRN PRN PRN Reason: Hypoglycemia Stop: 08/24/24 15:28 Heparin Sodium (Porcine) (Heparin 5,000 Unit/Ml Vial) 5,000 unit SUBCUT Q8HR [facility] Stop: 08/24/24 21:59 Last Admin: 08/26/23 06:51 Dose: 5,000 unit Piperacillin Sod/Tazobactam Sod (Zosyn) 4.5 gm in 100 mls @ 25 mls/hr IV Q12H [facility] Last Admin: 08/26/23 00:28 Dose: 25 mls/hr Insulin Aspart (Insulin Aspart 300 Units/3 Ml Insuln.Pen) 0 units SUBCUT TID.WM.HS [facility]; Protocol Stop: 08/24/24 16:59 Last Admin: 08/25/23 21:50 Dose: 12 units Insulin Glargine (Insulin Glargine 300 Units/3 Ml Insuln.Pen) 40 units SUBCUT QHS [facility] Stop: 08/24/24 21:59 Last Admin: 08/25/23 21:51 Dose: 40 units Levothyroxine Sodium (Levothyroxine 100 Mcg Tablet) 100 mcg PO DAILY [facility] Stop: 08/25/24 08:59 Liothyronine Sodium (Liothyronine 5 Mcg Tablet) 5 mcg PO QAM [facility] Stop: 08/25/24 08:59 Morphine Sulfate (Morphine Sulfate [...] signed by MD Alfredo Acosta> 08/26/23 0913 [facility] Work Phone: 1(908) 162-255207-14-2024 History and physical note Author Alon Santiago [facility] August 25, 2023 3:50pm Note Date/Time August 25, 2023 3:47 pm [facility] [address] [place] [address] Hospitalist H&P Signed Patient: Seth Murphy MR#: [id number] : 1955 Acct:[id number] Age/Sex: 67 / M Adm Date: 4 Loc: 4N Room: [id number] Type: ADM IN Attending Dr: Alon Santiago MD Copies to: MD Alon Dave MD~ HPI DATE OF EXAMINATION: 08/25/23 CHIEF COMPLAINT: Fever, confusion HISTORY OF PRESENT ILLNESS: Patient is a 67 year old male with past medical history of poorly controlled type 2 diabetes, hypertension, coronary artery disease, ESRD on dialysis Saturday, and asthma who presented to [facility] due to suspectedinfected of his left foot. Patient has been complaining of increase pain and swelling of left foot over the past several days. He presented to [facility] withfevers, chills, confusion, chest x-ray with no acute pathology. He was given IVvancomycin and Rocephin at the [facility], no leukocytosis found however fever at [facility] 101 with tachycardia however blood pressure remained [...] mentioned elsewhere in the documentation [facility] Medical History MRSA bacteremia Cellulitis of left [...] <Electronically signed by Alon Santiago MD> 08/25/23 1557 [facility] Work Phone: 1([phone]) 160-558904-17-2024 NotePatient having procedure @ [facility] per Dr. Alarcon. Order & office note emailed to Bernadette recoater @ Sonia Wright RN Director Physician Services @ [facility], & faxed to LORE Mazariegos @ [facility] office. Notified patient's procedure will be scheduled @ [facility] & [facility] office will notify patient. [phone] Received call from Delilah @ [facility] relaying patient is scheduled for procedure 06/06/2023 @ [facility] Sched[facility] will contact patient with date of procedure & instructions. [facility] scheduled for PAT Saturday06/03/2023 @ 0800 am @ [facility]. Procedure scheduled for 06/06/2023 @ 12 noon arrival time 11 am @ [facility] (case #[id number]) Notified patients Dee Dee date/time for PAT & date/time for procedure, relayed to Dee Dee instructions for procedure will be given to patient during PAT visit.[facility] HospitalComment on above: Result Comment: Electronically Signed By: Liya Diehl\Date and Time Signed: 05/29/23 14:14 [id number] NoteSubjective Patient ID: Seth Murphy is a [...] the past 36 hour(s)). No follow-ups on file.[facility]12-27-2023 Note Subjective Patient ID: Seth Murphy is [...] visit: End stage renal disease on dialysis ([facility]) - [facility] Us Dialysis Fistula; Future -Surgical [...] the past 36 hour(s)). No follow-ups on file.[facility]12-21-2023 History of Present illness Narrative* Seth Ying, [...] hypotension. He has a history of remote PCI/POUND ATTENDANT intervention of the LAD in 2018 with [...] ESRD (end stage renal disease) on dialysis ([facility]) 4. Diabetes mellitus of other type without complication, unspecified whether longterm insulin use ([facility]) 5. Essential hypertension 6. Hyperlipidemia, unspecified hyperlipidemia type 7. Never smoked any substance documented in this encounterUnBlanchard [facility] Work Phone: 1(573) 752-851312-21-2023 Instructions* Patient Instructions* Sarita Hernandes CMA - [...] time of your visit. documented in this encounterOhioHealth [facility] Work Phone: 1(280) 202-476612-08-2023 NotePatient: Seth Murphy Procedure Summary Date: 01/18/23 Room / Location: [facility] OPERATING ROOM 06 / [facility] Operating Room Anesthesia Start: 1008 Anesthesia Stop: 1150 Procedure: Right Radial Cephalic Fistula Creation - CPT Codes 89285,73785,95159,76084 (Right: Arm Upper) Diagnosis: End stage renal disease on dialysis ([facility]) Encounter for pre-operative examination (End stage renal disease on dialysis ([facility]) [N18.6, Z99.2]) (Encounter for pre-operative examination [...] PACU per anesthesia protocol. No notable events documented.[facility]12-08-2023 Note Airway Date/Time: 01/18/2023 10:16 AM Urgency: elective Airway not difficult General Information and Staff Patient location during procedure: OR Anesthesiologist: Maranda Chavez MD Resident/SALES ENABLEMENT MANAGER/CAA: Katerin Chung MD Performed: resident/SALES ENABLEMENT MANAGER/CAA Indications and Patient Condition Indications for airway [...] (cm): 23 Number of attempts at approach: 1UnNorwalk Memorial Hospital12-08-2023 NotePatient: Seth Murphy Procedure Information Date/Time: 01/18/23 1000 Procedure: Right Upper Extremity Fistula Creation - CPT Codes 90251,97404,42737,23343 (Right) Location: [facility] OPERATING ROOM 06 / [facility] Operating Room Surgeons: Greg Alarcon MD Relevant [...] products. Plan discussed with attending. Additional Equipment RequestsCleveland Clinic Children's Hospital for Rehabilitation12-08-2023 Note Pre-operative History and Physical Seth Murphy [...] Heart disease Hyperlipidemia Hypertension Hypothyroidism Myocardial infarction ([facility]/HCC) Peripheral vascular disease ([facility]) Past Surgical History: Procedure Laterality Date [...] Ana Phan MD PGY-4 Vascular Surgery Resident 01/18/23[facility]12-05-2023 NoteArteriovenous Fistula Procedure Note Indications: The patient [...] the patient was taken back to the Reconciling Clerk placed in supine position appropriate cardiopulmonary except [...] present and scrubbed for the entire procedure. [facility]11-30-2023 NoteasCleveland Clinic Children's Hospital for Rehabilitation11-29-2023 NoteSubjective Patient ID: Seth Murphy is a [...] balloon assisted maturation with Dr. Alarcon in fish farm laborer -Discussed the risks, benefits, alternatives of the procedure with the patient and time was alloted for all questions to be answered. Patient provided both verbal and written consent No diagnosis found. No orders of the defined types were placed in this encounter. No results found for this or any previous visit (from the past 36 hour(s)). No follow-ups on file.[facility]09-05-2023 Note aSubjective Patient ID: Seth Murphy is [...] the past 36 hour(s)). No follow-ups on file.[facility]09-05-2023 Note aSubjective Patient ID: Seth Murphy is [...] without issues- [place]. Review of Systems Neurological: Positive for numbness. [...] ESRD (end stage renal disease) on dialysis ([facility]) Vascular US upper extremity hemodialysis access duplex right #ESRD on HD using CVC currently with recent creation R RCAVF - hold off on cannulation as AVF matures -continue with HD via CVC - hand/transaction manager exercises demonstrated - US of AVF at 6-8 weeks and f/up at that time, sooner if neededC[facility] Clinic [facility]08-23-2023 NotePatient: Seth Murphy Procedure Summary Date: 10/02/22 Room / Location: [facility] OPERATING ROOM 06 / [facility] Operating Room Anesthesia Start: 1705 Anesthesia Stop: [...] PACU per anesthesia protocol. No notable events documented.[facility]08-22-2023 Note Patient: Seth Murphy Procedure Summary Date: 10/02/22 Room / Location: [facility] OPERATING ROOM 06 / [facility] Operating Room Anesthesia Start: 1705 Anesthesia Stop: Procedure: CREATION, RADIOCEPHALIC AV FISTULA (Right: Arm Lower) Diagnosis: (End stage renal disease) Surgeons: Greg Alarcon MD Responsible Provider: Petra Degroot MD Anesthesia Type: general ASA Status: 4 Anesthesia Post Transport Note Transport to: PACU O2 Route: room air Patient Monitor: direct observation Transport: uneventful Patient condition is: stableUnNorwalk Memorial Hospital08-22-2023 Note Airway Date/Time: 10/02/2022 5:21 PM Urgency: elective Airway not difficult General Information and Staff Patient location during procedure: OR Anesthesiologist: Petra Degroot MD Resident/SALES ENABLEMENT MANAGER/CAA: LATRELL Luciano Performed: resident/SALES ENABLEMENT MANAGER/CAA Indications and Patient Condition Indications for airway [...] ETT fit tight but without resistance through cords/tracheaUnNorwalk Memorial Hospital08-22-2023 NotePatient: Seth Murphy Procedure Information Date/Time: 10/02/22 1430 Procedure: CREATION, AV FISTULA (Right) - start as last case Location: [facility] OPERATING ROOM 06 / [facility] Operating Room Surgeons: Greg Alarcon MD Relevant [...] with patient who. Plan discussed with resident, SALES ENABLEMENT MANAGER and CAA. Additional Equipment RequestsUnNorwalk Memorial Hospital06-29-2023 Evaluation note* Encounter Date Diagnosis Assessment [...] dialysis fistula, subsequent encounter (ICD-10 - T82.7XXD) cicayda Other 06-09-2023 NoteMicrobiology PROCEDURE: Blood Culture Charcoal [R1] SOURCE: Blood BODY SITE: COLLECTED DATE/TIME: 07/13/2022 16:50 EDT RECEIVED DATE/TIME: 07/13/2022 17:35 EDT START DATE/TIME: 07/13/2022 17:35 EDT FREE TEXT SOURCE: HD CVC venous lumen Aaron FISH, Cristino Walker MD, Cristino FINAL REPORTS Final Report [] Verified Date/Time: 07/20/2022 18:00 EDT No growth at 7 days. Performing Locations R1: This test was performed at: [facility], [address] [place] [address], Mnqcdj[address] StreetComment on above:Performed By: #### [id number] ####[address] [id number] NoteMicrobiology PROCEDURE: Blood Culture Charcoal [R1] SOURCE: Blood BODY SITE: COLLECTED DATE/TIME: 07/13/2022 16:50 EDT RECEIVED DATE/TIME: 07/13/2022 17:33 EDT START DATE/TIME: 07/13/2022 17:33 EDT FREE TEXT SOURCE: HD CVC Aaron FISH, Cristino Walker MD, Cristino FINAL REPORTS Final Report [] Verified Date/Time: 07/20/2022 18:00 EDT No growth at 7 days. Performing Locations R1: This test was performed at: [facility], [address] [place] [address], [address] [place] [address], Wlywct[address] StreetComment on above:Performed By: #### [id number], [id number], [id number] #### [facility] [address] [place] [address] [id number] NoteMicrobiology PROCEDURE: Blood Culture Charcoal [R1] SOURCE: Blood BODY SITE: Arm R COLLECTED DATE/TIME: 07/12/2022 17:44 EDT RECEIVED DATE/TIME: 07/12/2022 18:33 EDT START DATE/TIME: 07/12/2022 18:33 EDT FREE TEXT SOURCE: IV start PHILLIPS AGACNP-BC, Nathalie PHILLIPS AGACNP-BC, Nathalie FINAL REPORTS Final Report [] Verified Date/Time: 07/20/2022 07:00 EDT No growth at 7 days. Performing Locations R1: This test was performed at: [facility], [address] [place] [address], [id number] [place] [address], [address] [place], [place] [address]Comment on above:Performed By: #### [id number], [id number], [id number] #### [facility] [address] [place] [address] [id number] NoteMicrobiology PROCEDURE: Blood Culture Charcoal [R1] SOURCE: Blood BODY SITE: Hand R COLLECTED DATE/TIME: 07/12/2022 16:34 EDT RECEIVED DATE/TIME: 07/12/2022 16:43 EDT START DATE/TIME: 07/12/2022 16:43 EDT FREE TEXT SOURCE: PHILLIPS AGACNP-BC, Nathalie PHILLIPS AGACNP-BC, Nathalie FINAL REPORTS Final Report [] Verified Date/Time: 07/19/2022 18:00 EDT No growth at 7 days. Performing Locations R1: This test was performed at: [facility], [address] [place] [address], [id number] [place] [address], [address] [place], [place] [address]Comment on above:Performed By: #### [id number], [id number], [id number] #### [facility] [address] [place] [address] [id number] NoteAdmission and Discharge Information Admit Date/Time:07/12/2022 15:58 [...] with contrast (08/04/2020), Removal of catheter (07/07/2020), PORTER USED CAR LOT (06/16/2020), AV - Creation of arteriovenous fistula (03/31/2020), AV fistula recirculation (08/06/2019), Abdominal hernia, Cholecystectomy, H/O: tracheostomy, Placement of stent in cardiac conduit. Hospital Course 86-year-old male with PMH of CAD, MS, chronic systolic heart failure, HTN, HLD, T2IDDM, peripheral neuropathy, ESRD on HD, hypothyroidism, b/l LE venous insufficiency, venous stasis ulcer?chronic. -Patient presented to [facility] as a direct admit at the request [...] be reviewed and discussed with PCP or rn production MD once the hospital jig boring machine set up operator is able to reach him/her. Ispent [...] made to ensure accuracy, however, inadvertently computerized producer director mistakes may be present. Significant Findings No qualifying data available. Services Consulted Consult to Dietitian Adult - Ordered -- 07/17/22 13:20:10 EDT Consult to Infectious Disease Physician - Ordered -- 07/13/22 11:46:00 EDT, LUE infected AVF, cellulitis, Consult and Co-manage Consult to Nephrology - Ordered -- 07/12/22 15:52:00 EDT, ESRD, Consult and Co-manage (more content not included)...[facility] HospitalComment on above:Result Comment: Electronically Signed By: Nathalie HAAS\.br\Date and Time Signed: 07/19/22 17:35 EDT\.br\Electronically Co-Signed By: Chandrakant LEW MD\.br\Date and Time Co-Signed: 07/19/2316:38 [id number] NoteEchocardiology Procedure Exam Date/Time Accession # Ordering Echo Transthoracic 07/19/2022 16:30 EDT [id number] Nathalie HAAS Complete CPT code 24005 81945 Reason for Exam (Echo Transthoracic Complete) MRSA in AVF;Other (please specify) Report [facility] [address] [place] [address] Adult Echocardiogram Report Name: SETH MURPHY Study Date: 07/19/2022 03:59 PM BP: 101/54 mmHg Patient Location: [address] [place] [address] HR: 81 : 1955 Gender: Male Height: [...] Loco Menjivar MD Transcribed by: BO Technologist: [facility]06-08-2023 Note CRM entered the room to [...] further needs. Ant dc today. CRM to follow.[facility] HospitalComment on above:Result Comment: Electronically Signed By: Sarah Tena.asael\Date and Time Signed: 07/19/22 10:50 [id number] NoteMicrobiology PROCEDURE: Tissue Culture [R1] SOURCE: Tissue [...] Result called to Peg Prado (3S) [facility] and results read back for [...] Locations R1: This test was performed at: [facility], [address] [place] [address], [id number]- , , RydnqbNorwalk Memorial HospitalComment on above:Performed By: #### [id number], [id number], [id number] #### [facility] [address] [place], [place] [id number] NoteCRM entered the room to discuss dc [...] to HD. ANt dc 07/19or 07/20. van transport.[facility] HospitalComment on above:Result Comment: Electronically Signed By: Sarah Tena\Date and Time Signed: 07/17/22 11:30 [id number] NoteCRM entered the room to discuss dc planning. PCP, DME and insurance discussed. Patient is alert andinvolved in plan of care. Contact information provided and whiteboard updated. Per PT pt rec SNF, pt agreeable to [facility], they have accepted. Pt will need 3MN stay. Plan to see vascular Saturday. Pt's friend will transport to HD. Ant dc 07/16. CRM to follow.[facility] HospitalComment on above:Result Comment: Electronically Signed By: Sarah Tena.asael\Date and Time Signed: 07/14/22 13:10 [id number] NoteMicrobiology PROCEDURE: Wound Culture [R1] SOURCE: Wound BODY SITE: Arm L COLLECTED DATE/TIME: 07/12/2022 16:45 EDT RECEIVED DATE/TIME: 07/12/2022 16:53 EDT START DATE/TIME: 07/12/2022 16:53 EDT FREE TEXT SOURCE: ALAN VEGAS, Nathalie VEGAS, Nathalie FINAL REPORTS Final Report [] Verified [...] Locations R1: This test was performed at: [facility], [address] [place] [address], [id number]- , [place], JofqseNorwalk Memorial HospitalComment on above:Performed By: #### [id number], [id number], [id number] #### [facility] [address] [place] [address] [id number] NotePT Evaluation done this date. Pt. with on AM-PAC this date. Very weak and fatigued. Difficulty standing upright to use FWW safely. Recommend SNF.[facility]06-01-2023 NoteBasic Information Admit Date/Time:07/12/2022 14:01 Chief Complaint r/o infection of fistula History of Present Illness 86-year-old male with PMH of CAD, MS, chronic systolic heart failure, HTN, HLD, T2IDDM, peripheral neuropathy, ESRD on HD, hypothyroidism, b/l LE venous insufficiency, venous stasis ulcer?chronic. -Patient presented to [facility] as a direct admit at the request [...] mg/dL High (07/12/22 16:44:00) POC Device SN: [id number] (07/12/22 16:44:00) POC User ID: [id number] (07/12/22 16:44:00) POC Username: MIKEY CUEVAS (07/12/22 [...] artery disease (I25.10: Atherosclerotic heart disease of inupiat coronary artery withoutangina pectoris) -Aspirin, atorvastatin, 4. Chronic systolic heart failure (I50.22: Chronic systolic (congestive) heart failure) Stable -Fluid mgt. per HD 5. Insulin dependent type 2 diabetes mellitus (E11.9: Type 2 diabetes mellitus without complications) Accuchecks AC/HS w/ SSI prn -Home regimen: Insulin 70/30 14u HS -Decrease insulin 70/30 to 7u HS - uptitrate as tolerated -Hypoglycemic p (more content not included)...[facility] HospitalComment on above:Result Comment: Electronically Signed By: [...] Follow these instructions at home: Medicines Take uols-keh-vitswdn and prescription medicines only as told by [...] provider. Document Revised: 07/24/2021 Document Reviewed: 07/24/2021 [employer] Patient Education 2022 Epuls. Follow Up Care 07/09/2022 17:23:13 With:Greg Alarcon Address: [address] [place], [place] [address] [address]- Business (1) When:07/12/2022 18:59:06 Comments:Follow-up with Dr. Alarcon for further evaluation of your fistula. With:Nav Alejo Address: [address] [place] [address] [address] [phone]- Business (1) When:07/12/2022 18:58:50 Comments:Follow-up with your primary care provider in 3 to 5 days. If symptoms worsen, do not improve, or new symptoms arise please report back to emergency department for further evaluation. [facility]05-28-2023 NoteAdmission and Discharge Information Admitting Physician [...] with contrast (08/04/2020), Removal of catheter (07/07/2020), PORTER USED CAR LOT (06/16/2020), AV - Creation of arteriovenous fistula [...] follow up with PCP and his outpatient chrome tanning drum operator. Physical Exam General: alert, no acute distress [...] 72.9 % Lymph Auto - 9.1 % [place] Auto - 16.7 % Eos Auto - 1.0 % Basophil Auto - 0.3 % Neutro Absolute - 5.2 E9/L Lymph Absolute - 0.6 E9/L [place] Absolute - 1.2 E9/L Eos Absolute - [...] - 146 mg/dL POC Device SN - [id number] POC User ID - [id number] POC Username - [email or web address] LING CBC w/ [...] Greg Alarcon 08/06/2022 10:00 AM EDT [address] [place] [address]- Business (1) Additional Instructions: Nav Alejo 07/13/2022 11:15 AM EDT [address] [place] [address] [place] [address]- Business (1) Additional Instructions: Patient Education CV - Cardiovascular Discharge Instructions (CUSTOM)[facility] Comment on above:Result Comment: Electronically Signed By: DAVONTE FISH, Pedro\.br\Date and Time Signed: 07/08/22 09:40 [id number] Note [id number]:127[facility] 07-02-2022 NoteBasic Information Accompanied by: No [...] artery disease (I25.10: Atherosclerotic heart disease of inupiat coronary artery withoutangina pectoris) - stable, continue [...] diabetes mellitus Pseudophakia Thr (more content not included)...[facility] Result Comment: Electronically Signed By: DAVONTE FISH, Pedro\.br\Date and Time Signed: 07/02/22 17:10 [id number] Hospital Discharge instructions Patient Education 03/15/2022 14:06:07 [...] relax (sedative) during your procedure. Medicines Take tpij-kmx-nsopiln and prescription medicines only as told by your health care provider. Puncture site care Follow instructions from your health care provider about how to take care of the site where catheters were inserted. Make sure you: ?Wash your hands with soap and water before you change your bandage (dressing). If soap and water are not available, use hand christmas tree grader. ?Change your dressing as told by your [...] told by your health care provider. Take nccc-hox-fyvgoch and prescription medicines only as told by [...] Document Reviewed: 02/28/2018 Elsevier Patient Education 2020 [employer] Follow Up Care 03/15/2022 11:30:19 With:Greg Alarcon Address: [facility] Jerson Ramirez [facility] Business (1) When: Unknown Comments:as needed [facility]02-02-2023 Evaluation + Plan noteExtracted from: Title:Procedure [...] Oxygen Protocol Patient Education Saline Lock Insert [facility]09-22-2022 Hospital Discharge instructions Patient Education 11/02/2021 [...] relax (sedative) during your procedure. Medicines Take mcbt-ynw-apofzbr and prescription medicines only as told by your health care provider. Puncture site care Follow instructions from your health care provider about how to take care of the site where catheters were inserted. Make sure you: ?Wash your hands with soap and water before you change your bandage (dressing). If soap and water are not available, use hand christmas tree grader. ?Change your dressing as told by your [...] told by your health care provider. Take tibj-jeq-zbvufua and prescription medicines only as told by [...] 06/14/2014 Document Revised: 02/28/2018 Document Reviewed: 02/28/2018 [employer] Patient Education 2020 [employer]. Follow Up Care 10/27/2021 08:22:09 With:Greg Alarcon Address: [address] [place] [id number] Business (1) When: Unknown Comments:Call for followup appointment if needed With:Nav Alejo Address: [address] [place] [id number] Business (1) When: Unknown [facility] No data available for this section [facility] Future Appointments Appointment Date:08/06/2022 10:00:00 AM Scheduled Provider:Dorian FISH, Greg Lopez Location[facility] Appointment Type:Vascular Follow Up (FT) [facility] Future Appointments Appointment Date:07/16/2022 12:00:00 PM Scheduled Provider: Location:[facility] Appointment Type:Surgery FT [facility] Future Appointments Appointment Date:06/18/2023 01:00:00 PM Scheduled Provider: [facility] Appoint[facility] Type:US Duplex Procedures (FT) Future Scheduled Tests Radiology* US PVR Lower EXT Complete Bilat 06/18/23 [facility] Diagnosis Arteriosclerotic heart disease Coronary atherosclerosis of unspecified type of vessel, inupiat or graft S/P PTCA (percutaneous transluminal coronary angioplasty) Postsurgical percutaneous transluminal coronary angioplasty status ESRD (end stage renal disease) on dialysis ([facility]) End stage renal disease Diabetes mellitus of other type without complication, unspecified whether longterm insulin use ([facility]) Essential hypertension Unspecified essential hypertension Hyperlipidemia, unspecified hyperlipidemia type Never smoked any substance documented in this encounter [facility] Work Phone: Evaluation note* Diagnosis Onset [...] arthritis of left foot acute Diabetes mellitus [facility] Work Phone: Evaluation note* Diagnosis Onset [...] acute Type 2 diabetes mellitus with hyperglycemia [facility] Work Phone: Evaluation note* Diagnosis Onset [...] acute Diabetes mellitus with diabetic neuropathy acute [id number] acute ESRD (end stage renal disease) acute Fever acute Osteomyelitis acute Peripheral arterial disease acute PVD (peripheral vascular disease) acute Secondary hyperparathyroidism acute Septic shock acute Severe sepsis acute Type 2 diabetes mellitus wit h diabetic chronic kidney disease acute Ulcer of foot acute Ventricular bigeminy acute Diabetes mellitus chronic [facility] Work Phone: Evaluation note* Diagnosis Onset [...] acute Diabetes mellitus with diabetic neuropathy acute [id number] acute ESRD (end stage renal disease) acute Osteomyelitis acute Peripheral arterial disease acute PVD (peripheral vascular disease) acute Secondary hyperparathyroidism acute Type 2 diabetes mellitus wit h diabetic chronic kidney disease acute Ulcer of foot acute Ventricular bigeminy acute Diabetes mellitus chronic Cellulitis resolved Septic shock resolved [facility] Work Phone: Evaluation note* Diagnosis Onset Date Resolution Status Anemia acute Anemia of renal disease acut e Benign hypertension with end-stage renal disease acute Deep vein thrombosis of right lower extremity acute Diabetes mellitus with diabetic neuropathy acute [id number] acute ESRD (end stage renal disease) acute Osteomyelitis acute Peripheral arterial disease acute PVD (peripheral vascular disease) acute Secondary hyperparathyroidism acute Type 2 diabetes mellitus wit h diabetic chronic kidney disease acute Ulcer of foot acute Ventricular bigeminy acute Diabetes mellitus chronic Cellulitis resolved Septic shock resolved [facility] Work Phone: History and physical note Author Gabriel Gould [facility] June 21, 2023 10:20pm Note Date/Time June 21, 2023 9:30p m [facility] [address] [place] [address] Hospitalist H&P Signed Patient: Seth Murphy MR#: [id number] : 1955 Acct:[id number] Age/Sex: 67 / M Adm Date: 4 Loc: Room: 8F6120-2 Type: ADM IN Attending Dr: Gabriel Gould [...] the past couple of days and his chrome tanning drum operator subsequently told him to come to the hospital. Chest x-ray performed emergency room shows worsening osteomyelitis of the left great toe involving the sesamoids, distal first metatarsal, and proximal phalanx of the great toe. She received a dose ofIV vancomycin and was subsequent admitted to the hospital. [facility] Medical History (Updated 05/09/23 @ 13:26 by [...] % (Auto) 7.5 % (.) 06/21/23 19:35 [place] % (Auto) 16.2 % (.) 06/21/23 19:35 Eos % (Auto) 1.1 % (.) 06/21/23 19:35 Baso % (Auto) 0.6 % (.) 06/21/23 19:35 Nucleat RBC Rel Count 0.1 /100 WBC (0-0.5) 06/21/23 19:35 Neut # (Auto) 5.4 x10E3/uL (1.8-7.7) 06/21/23 19:35 Lymph # (Auto) 0.5 x10E3/uL (1.00-4.8) L 06/21/23 19:35 [place] # (Auto) 1.2 x10E3/uL (0.0-0.8) H 06/21/23 [...] <Electronically signed by Gabriel Gould DO> 06/21/232219 [facility] Work Phone: History general Narrative - [...] LEG 2010 Hospitalization History Heart attack 04-16-18 cicayda Other Hospital Discharge instructions No data available for this section [facility] No data available for this section [facility] (narrative)* Consultation (Routine) - Authorized Specialty Diagnoses / Procedures Referred By Contzaida t Referred To Contact Cardiology Diagnoses Arteriosclerotic heart disease Procedures Follow Up In Cardiology Seth Ying DO [address] [facility] [address] [place] [address] Seth Ying, [address] [facility] [address] [place] [address] Referral ID Status Reason Start Date Expiration Date V isits Requested Visits Authorized [id number] Authorized 01/31/2023 01/31/2024 1 1 [facility] Work Phone: Summary Purpose Family History [...] COVID illness in 2019. He underwent anterior MS with PCI chronic total occlusion of the proximal through mid LAD x2 drug-eluting stents in March 2018; follow-up echocardiogram revealed low normal left ventricular function with ejection fraction of 50% in September 2018. In March 2020 he underwent COVID infection with prolonged intubation and hospitalization in [place] with multiorgan failure details of which have [...] He has a history of ASHD with POUND ATTENDANT intervention of the LAD in April 2018 [...] feet wounds bilateral feet wounds [facility] 04/16/23 Reason for Visit Anemia of [...] feet wounds bilateral feet wounds [facility] 04/16/23 L foot wound, hx diabetic [...] lower extremity Diabetes mellitus with diabetic neuropathy [id number] ESRD (end stage renal disease) Fever Osteomyelitis [...] lower extremity Diabetes mellitus with diabetic neuropathy [id number] ESRD (end stage renal disease) Osteomyelitis Peripheral [...] lower extremity Diabetes mellitus with diabetic neuropathy [id number] ESRD (end stage renal disease) Osteomyelitis Peripheral [...] section and content) DATE CREATED AUTHOR 09/03/2019 [facility] DATE CREATED AUTHOR AUTHOR'S ORGANIZ ATION 05/19/2020 [facility] DATE CREATED AUTHOR AUTHOR'S ORGANIZ ATION 10/21/2020 [facility] DATE CREATED AUTHOR AUTHOR'S ORGANIZ ATION 01/12/2022 [facility] DATE CREATED AUTHOR AUTHOR'S ORGANIZ ATION 05/19/2022 [facility] DATE CREATED AUTHOR AUTHOR'S ORGANIZ ATION 06/20/2022 [facility] DATE CREATED AUTHOR AUTHOR'S ORGANIZ ATION 11/24/2022 [facility] DATE CREATED AUTHOR AUTHOR'S ORGANIZ ATION 02/03/2023 [facility] DATE CREATED AUTHOR AUTHOR'S ORGANIZ ATION 03/24/2023 [facility] DATE CREATED AUTHOR AUTHOR'S ORGANIZ ATION 06/23/2023 [facility] DATE CREATED AUTHOR AUTHOR'S ORGANIZ ATION 08/31/2023 [facility] DATE CREATED AUTHOR AUTHOR'S ORGANIZ ATION 10/05/2023 [facility] DATE CREATED AUTHOR AUTHOR'S ORGANIZ ATION 11/03/2023 [facility] y[facility] Care Team (unrecognized sect ion [...] October 31, 2023 End: October 31, 2023 Ron Levi DO Emergency Provider Active [...] Provider Active Star t: July 08, 2023 Agency Development Manager Relationship Specialty Start Date End Date Nav Alejo MD [address] [place] [address] [place] [address] PCP - General 05/22/18 Team Status: Active [...] Hilario Nunez MD Other Provider Active Start: kenyon 2023 End: April 16, 2023 Guicho Chun [...] Team Status: Active Member Role Status Dates Nva Alejo MD Primary Care Provider Active Start: [...] Hilario Nunez MD Other Provider Active Start: kenyon 2023 Guicho Chun MD Other Provider Active [...] Provider Active Start: April 10, 2023 Hilario Nuenz MD Attending Provider, Other Provider Active Start: [...] Hilario Nunez MD Other Provider Active Start: [facility] 2023 Guicho Chun MD Attending Prov ider, [...] BE BASED ON THE PRIMARY CLINICAL RECORDS. [employer] provides no warranty or guarantee of the accuracy or completeness of information in this document.
== END 2023-11-26 10:10 | disposition home or self-care (01) ==
LOC: WC 10:09
PROVIDERS: PCP Family Medicine; Visit Provider Podiatrist Foot & Ankle Surgery
DX: M79.671 Pain in right foot (principal); E11.621 Type 2 diabetes mellitus with foot ulcer; L97.511 Non-pressure chronic ulcer of other part of right foot limited to breakdown of skin; L97.528 Non-pressure chronic ulcer of other part of left foot with other specified severity; L89.892 Pressure ulcer of other site, stage 2
CPT/HCPCS: 73630; G0463

== ENCOUNTER 2024-01-22 09:11 | Outpatient (REF) | payer MEDICARE, SELFPAY ==
[2024-01-22 10:11] LABS: Potassium 6.4 mmol/L (3.5-5.1)
== END 2024-01-22 09:12 | disposition home or self-care (01) ==
LOC: LAB 09:11
PROVIDERS: PCP Family Medicine; Visit Provider Internal Medicine Nephrology
DX: E87.5 Hyperkalemia (principal)
CPT/HCPCS: 36415; 84132

== ENCOUNTER 2024-01-27 12:57 | Outpatient (REF) | payer MEDICARE, SELFPAY ==
[2024-01-27 13:22] LABS: Potassium 4.6 mmol/L (3.5-5.1)
== END 2024-01-27 12:58 | disposition home or self-care (01) ==
LOC: LAB 12:57
PROVIDERS: PCP Family Medicine; Visit Provider Internal Medicine Nephrology
DX: E87.5 Hyperkalemia (principal)
CPT/HCPCS: 36415; 84132

== ENCOUNTER 2024-05-25 13:50 | Outpatient (OUT) | payer MEDICARE, SELFPAY ==
[2024-05-25 14:13] LABS: Basophils Percent Auto 0.6 % (0.2-2.0); Eosinophils Absolute Auto 0.2 10^3/uL (0.0-0.7); Eosinophils Percent Auto 2.6 % (0.9-7.0); Hematocrit 35.2 % (42.0-54.0); Hemoglobin 11.8 g/dL (14.0-18.0); Immature Granulocytes Abs Auto 0.07 10^3/uL (0.00-0.03); Lymphocytes Absolute Auto 1.3 10^3/uL (1.2-3.8); Lymphocytes Percent Auto 18.5 % (20.5-60.0); Mean Corpuscular HGB Conc 33.5 g/dL (29.9-35.2); Mean Corpuscular Hemoglobin 30.8 pg (25.9-34.0); Mean Corpuscular Volume 91.9 fL (80.0-94.0); Mean Platelet Volume 10.5 fL (9.5-13.5); Monocytes Absolute Auto 0.8 10^3/uL (0.3-0.8); Monocytes Percent Auto 11.3 % (1.7-12.0); Neutrophils Absolute Auto 4.5 10^3/uL (1.4-6.5); Platelet Count 134 10^3/uL (150-450); Red Blood Count 3.83 10^6/uL (4.70-6.10); Red Cell Distribution Width 15.1 % (11.0-15.0); White Blood Count 6.8 10^3/uL (4.0-11.0)
[2024-05-25 14:48] LABS: Alanine Aminotransferase 47 U/L (16-63); Albumin Globulin Ratio 0.8; Albumin Level 3.4 g/dL (3.4-5.0); Alkaline Phosphatase 88 U/L (46-116); Anion Gap 13.6; Aspartate Amino Transferase 29 U/L (15-37); BUN Creatinine Ratio 3.8; Bilirubin Total 0.7 mg/dL (0.2-1.0); Calcium 9.6 mg/dL (8.5-10.1); Chloride 95 mmol/L (98-107); Chol HDL Ratio 1.6; Cholesterol 99 mg/dL (<=200); Estimated GFR (African America 14 (>=60 mL/min/1.73m^2); Estimated GFR (Non-African Ame 12 (>=60 mL/min/1.73m^2); Free T3 2.35 pg/mL (2.18-3.98); Globulin 4.1 g/dL; Glucose 146 mg/dL (74-106); HDL Cholesterol 63 mg/dL (40-60); Potassium 3.6 mmol/L (3.5-5.1); Sodium 135 mmol/L (136-145); Thyroid Stimulating Hormone 1.072 uIU/mL (0.358-3.740); Total Protein 7.5 g/dL (6.4-8.2); Triglycerides 66 mg/dL (<=150); VLDL CHOLESTEROL 13.2 mg/dL
[2024-05-25 15:04] LABS: Estimated Average Glucose 223 mg/dL; Glycohemoglobin A1C 9.4 % (4.5-6.2)
== END 2024-05-25 13:51 | disposition home or self-care (01) ==
LOC: LAB 13:51
PROVIDERS: PCP Family Medicine; Visit Provider Family Medicine
DX: R53.1 Weakness (principal); N18.6 End stage renal disease; E11.621 Type 2 diabetes mellitus with foot ulcer
CPT/HCPCS: 36415; 80053; 80061; 83036; 84436; 84443; 84481; 85025